=== PATIENT | female | born 1945 | race Caucasian/White ===

== ENCOUNTER 2018-04-13 13:30 | Outpatient (RCR) | payer MEDICARE, OTHER, SELFPAY ==
--- NOTE | 2018-03-06 12:05 | HP.PTEVAL_ITS ---
Patient's Visit Information ISELA CAMARENA is a 72 year old F referred to Physical Therapy by DEDRICK Connelly with a diagnosis of B shoulder pain. Date of Evaluation: 03/06/18 Physical Therapist: Esau Reed PT, - Visit Plan Frequency: 2-3x /Week Duration: 4-6 Weeks Plan: B shoulder strengthening, scap stab ex's, UBE, and HEP - Subjective Subjective: Pt reports she has had B shoulder pain for a long time. Pt reports her pain has progressively worsened. Pt also reports that her hands are really sore and she is limited with gripping stuff secondary to pain. Pt reports she had PT in the past for this same condition which really helped. Pt c/o a burning sensation in her hands which really hurts. No recent xrays or other dx tests. Pt reports occasional sleep diff at this time. Pt is ambidextrious. 6/10 pain at rest, 10/10 pain at worst - Pain B shoulder pain Pain Intensity (Out of 10): 6 Pain Intensity Range: 10 - Objective Neuro: B UE sensaation WNL to light touch. Palpation: Pt is very tender along the supraspinatus muscles. ROM: R shoulder flex= 50, abd= 55, ER= 45, IR severely limited. L shoulder flex= 80, abd= 75, ER= 40, IR severely limited. MMT: B shoulders 3-/5 throughout. Special tests: Pos empty can sign - Goals Goal 1:: Decrease B shoulder pain x 50% to aid with with sleep Goal Time Frame: 4-6 Weeks Goal 2:: Increase B shoulder strength x 1 grade to aid with IADL's Goal Time Frame: 4-6 Weeks Goal 3:: Increase B shoulder abd and flex ROM x 30 degrees to aid with overhead activity Goal Time Frame: 4-6 Weeks Goal 4:: I with HEP Goal Time Frame: 4-6 Weeks - Rehabilitation Potential Physical Therapy Diagnosis: B shoulder pain, weakness, and limited ROM secondary to deg changes in the shoulders Rehabilitation Potential: Good - Anticipated Interventions Patient/Client Instruction: Educate patient on: Condition, Plan of Care For the Purpose of:: To improve self management Therapeutic Exercise to Include: Strength training, Endurance training, Flexibilty training, Passive ROM, Active ROM, Scapular Strength/Stabilization For the Purpose of:: To decrease pain, To increase ROM, To improve muscle performance and motor function Cryotherapy (ice pack, ice massage): Yes For the Purpose of:: To decrease pain Thank you for the opportunity to evaluate your patient. For Medicare and Medicare HMO plans, please review the plan of care and approve it. It will need to be FAXED BACK to us at [phone] for Medicare purposes. Please let me know if there are questions or concerns regarding this plan of care. Physician Signature: Date:
--- NOTE | 2018-03-14 15:35 | HP.OTEVAL ---
Patient's Visit Information ISELA CAMARENA is a 72 year old F, referred to Occupational Therapy by DEDRICK Connelly, with a diagnosis of Hand weakness, pain, and stiffness. Date of Evaluation: 03/14/18 Occupational Therapist: Amarilys Costello - Subjective Subjective: Noted septic shock about 3 years ago. 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 She noted when out of come coma could strug shoulder and thats all she could do. She notes last mvmt to come back was R UE. 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 Notes never having nerve conduction, is not DMII but borderline, and is currently working with neurologist for neuropathy. Mostly concerned of pain and strength of hands. - Pain Right Wrist 8 Pain Intensity Range: 9 Left Wrist 2 Pain Intensity Range: 2, 3 - ROM Forearm: sup R 0-42, L 0-30 Wrist: flexion R 0-90, L 0-67; ext R 0-45, L 0-29 MP: WFL PIP: WFL DIP: WFL - Strength Multi Skilled Operator: R 34, L 42 Lateral Pinch: R 10, L 10 Tripod Pinch: R 10, L 8 Tip-to-Tip Pinch: R 8, L 9 - Sensation Thumb: R 4.17, L 3.22 Index: R 4.08, L 3.22 Middle: R 3.84, L 3.61 Ring: R 3.22, L 3.84 Little: R 4.56, L 3.84 - Special Tests Phalen's (Carpal Tunnel): negative Tinel's: negative WHAT Test: negative - Hand/Wrist Evaluation Total Score of Pain & Functional Sections: 82 - Goals Goal:: Pt. to increased B new accounts banking representative by 10 lbs to promote increased stability of wrist and hand to promote manipulation of self-care items by d/c. Goal:: Pat to increased supination of B wrists to promote ability to complete self-care tasks 4/5 trials 80% of the itme by d/c. Goal:: Pt. to be mod I to complete pain management techniques safely 4/5 trials 80% of the time to decreased pain and promote particpation of ADl/IADls by d/c. Goal:: Pat to be mod I to complete decreased sensory stratgeies at home to promote participation and safety while completing ADL/IADLs by d/c. Goal:: Pat to be mod I to complete proper body mechanics of hand and wrist to decreased painand promote jt integrity while complete selfcare 4/5 trials 80% of the time by d/c. - Rehabilitation General Assessment: Pat arrived for OT eval on this date. She exhibit increased pain in B hand with R wrist being more painful than left. Notes pain 8/10 without movement but no grimances noted with movement. ROM of shoulder and elbows appear limited. PT working on shoulders. ROM of wrist WFL with some decreased supination. She is able to make composite fists. Some strength discrepancies noted and OT to work on strengthening. Decreased touch sensation noted through monofilament test. Sensory compensations and strategies to be educated on and complete to promote safety when at home. Rehabilitation Potential: Good - Anticipated Interventions Anticipated Interventions: A/AAROM/PROM, Strengthening, Massage, Triggerpoint Release, Modalities, Joint Protection/Energy Conservation, Ergonomic Education, Fine Motor Coord/Mushtaq, ADL Training, Caregiver Training, Home Program - Visit Plan Frequency: 1-2x /Week Duration: 4 Weeks TEXT: Thank you for the opportunity to evaluate your patient. For Medicare and Medicare HMO plans, please review the plan of care and approve it. It will need to be FAXED BACK to us at [phone] for Medicare purposes. Please let me know if there are questions or concerns regarding this plan of care. Physician Signature: Date:
--- NOTE | 2018-04-11 13:58 | HP.PTDCSUM_ITS ---
HP - PT D/C Summary It has been my pleasure to treat ISELA CAMARENA under orders from Aura Torres , SHAWNAC, for the diagnosis of B shoulder pain for a total of 12 visit(s). Discharge Date: Please see the following information for a summary of their discharge status. - Subjective Subjective: Pt does not have pain in B shoulders this date. B shoulder pain has been 0-7/10 in the last week. - Pain B shoulder pain Pain Intensity (Out of 10): 0 - Overall Improvement % Improvement: 35 - Objective Objective/Function: AROM: L shoulder flex 72, abd 70, ER 45. R shoulder flex 64 , abd 70, ER 15. (compensations with all movements and movements are painful). MMT: B shoulder strength is 3-/5 throughout. - Goals Goal 1:: Decrease B shoulder pain x 50% to aid with with sleep Goal Progress: Goal Met Goal 2:: Increase B shoulder strength x 1 grade to aid with IADL's Goal Progress: Progressing Goal 3:: Increase B shoulder abd and flex ROM x 30 degrees to aid with overhead activity Goal Progress: Progressing Goal 4:: I with HEP Goal Progress: Goal Met - Plan Plan: D/C to HEP. - D/C Information If there are questions or concerns regarding this patient's physical therapy, please feel free to call me at [phone]. Thank you for the referral of this patient. Sincerely, Esau Reed, PT,
--- NOTE | 2018-04-13 14:23 | HP.OTDCSUM_ITS ---
HP - OT D/C Summary It has been my pleasure to treat ISELA CAMARENA under orders from SHAWNA ConnellyC, for the diagnosis of Hand weakness, pain, and stiffness for a total of 7 visit(s). Please see the following information for a summary of their discharge status. - Overall Improvement % Improvement: 20 - Objective Objective/Function: Completed reassessment on this date. Measurements are as follows: ROM wrist flexion R 0-31, L 0-90; ext. R 0-46, L 0-40, supination R 0- 55, L 0-60 degrees. Increased stiffness and appears to be weather related. Completed strength assessment: flexo folder gluer operator R 32, L 40 lbs, lateral pinch R 10, L 11; tripod R 10, L 8 lbs, tip pinch R 7, L 8 lbs. Completed sensation reassessment with monofilament test: R hand 2nd 3.84, 3rd 3.22, 4th 3.61, 5th 4.08, thumb 3.84; L hand 2nd 3.22, 3rd 3.22, 4th 3.84, 5th 4.08, thumb 3.84. R hand has progressed but sensory deficits remain and L hand exhibited some decreased sensation in pinky finger. - Goals Patient Goals: Regain Mobility, Regain Strength, Decrease Pain, Decrease Swelling/Stiffness, Use Hand/Wrist/Arm Normally Again, Decrease Tingling/ Numbness, Increase ROM, Be More Independent in ADLS, Resume Former Household Responsibilities (Cooking,Cleaning,Yard, etc.), Resume Hobbies Other: Zoey to be consulted if lyphadema becomes more prevalent but as of now she notes no issue of changes with B arms. Goal:: Pt. to increased B flexo folder gluer operator by 10 lbs to promote increased stability of wrist and hand to promote manipulation of self-care items by d/c. Goal:: Pat to increased supination of B wrists to promote ability to complete self-care tasks 4/5 trials 80% of the itme by d/c. Goal:: Pt. to be mod I to complete pain management techniques safely 4/5 trials 80% of the time to decreased pain and promote particpation of ADl/IADls by d/c. Goal:: Pat to be mod I to complete decreased sensory stratgeies at home to promote participation and safety while completing ADL/IADLs by d/c. Goal:: Pat to be mod I to complete proper body mechanics of hand and wrist to decreased painand promote jt integrity while complete selfcare 4/5 trials 80% of the time by d/c. - Plan Plan: Pat completed last scheduled appointment today. She will be d/c'd today. She is to follow up and PA-C to determine POC if numbness and tingling continues. She has progressed with R hand for touch sensation but strength and ROM measurements remain similar to evaluation. She is to get yellow putty today. Call with questions/concerns. - D/C Information If there are questions or concerns regarding this patient's occupational therapy , please fell free to call me at [phone]. Thank you for the referral of this patient. Sincerely, Amarilys Costello
== END 2018-04-13 15:13 | disposition home or self-care (01) ==
LOC: OT 13:30
PROVIDERS: Family Provider Internal Medicine; PCP Internal Medicine; Visit Provider Nurse Practitioner Acute Care
DX: M25.512 Pain in left shoulder (principal); M25.511 Pain in right shoulder; M79.601 Pain in right arm; M79.602 Pain in left arm
CPT/HCPCS: 97110; 97140; 97162; 97166; 97530

== ENCOUNTER → 2018-06-05 10:10 | Outpatient (CLI) | payer MEDICARE, OTHER, SELFPAY ==
[2018-06-05 11:11] LABS: ALB/GLOB Ratio 0.7 RATIO (0.9-2.4); AST(SGOT) 15 U/L (15-37); Alanine Aminotransfer ALT/SGPT 23 U/L (13-56); Albumin, Serum 3.4 g/dL (3.2-5.0); Alkaline Phosphatase 51 U/L (45-117); Anion Gap 7 (5-15); BUN 12 mg/dL (7-18); BUN/Creat Ratio 15.1 RATIO (10-20); Bilirubin, Direct 0.11 mg/dL (0.00-0.30); Calcium,Total 9.2 mg/dL (8.5-10.1); Chloride 95 mmol/L (98-107); EST Glomerular Filtration Rate 75 mL/min (>60); Est Glom Filt Rate - Afr Amer 91 mL/min (>60); Globulin 4.7 g/dL (2.2-4.2); Glucose 120 mg/dL (74-106); Magnesium 2.1 mg/dL (1.6-2.6); Phosphorus 3.3 mg/dL (2.5-4.9); Potassium 4.1 mmol/L (3.5-5.1); Protein, Total 8.1 g/dL (6.4-8.2); Sodium Level 135 mmol/L (136-145)
[2018-06-06 08:25] LABS: Vitamin B12 1485 pg/mL (211-911)
== END ==
PROVIDERS: Family Provider Internal Medicine; PCP Internal Medicine; Visit Provider Nurse Practitioner Acute Care
DX: M79.7 Fibromyalgia (principal); G62.9 Polyneuropathy, unspecified
CPT/HCPCS: 36415; 80053; 82248; 82607; 83735; 84100

== ENCOUNTER 2018-10-30 12:11 | Inpatient (IN) | payer MEDICARE, OTHER, SELFPAY ==
[2018-10-30] VITALS (30 sets, daily range): BP systolic 104–147; BP diastolic 50–107; PULSE 79–203; RESP 16–108; TEMP 36.6–39; O2SAT 93–925; BMI 59.7; BMI 55.4
--- NOTE | 2018-10-30 12:27 | EKG12_ITS ---
Test Reason : SVT Blood Pressure : / mmHG Vent. Rate : 093 BPM Atrial Rate : 093 BPM P-R Int : 168 ms QRS Dur : 080 ms QT Int : 360 ms P-R-T Axes : -24 024 038 degrees QTc Int : 447 ms Normal sinus rhythm Low voltage QRS Borderline ECG When compared with ECG of 30-OCT-2018 22:15, MANUAL COMPARISON REQUIRED, DATA IS UNCONFIRMED Confirmed by CACHORRO THOMPSON, JUAN ([id number]), editor news JAMI TOLENTINO ([id number]) on 11/02/2018 2:20:19 PM Referred By: Colby Roland Confirmed By:JUAN IVORY MD
--- NOTE | 2018-10-30 12:27 | RAD_ITS ---
STUDY: X-RAY CHEST REASON FOR EXAM: Female, 73 years old. Hypoxia. TECHNIQUE: Single AP portable view of the chest. COMPARISON: None. FINDINGS: EKG electrodes are seen. Vascular congestion and mild CHF. There is no demonstrated pleural abnormality. There is moderate cardiac enlargement. Normal mediastinum and peace. Normal visualized pulmonary arteries. There is atherosclerotic tortuosity of the aortic arch and descending thoracic aorta. Normal visualized thoracic spine. Normal visualized ribs, clavicles, and shoulders. There is no demonstrated abnormality of the visualized soft tissue structures of the upper abdomen. RAD/Chest 1 View (Portable) IMPRESSION: Cardiomegaly and CHF. Electronically Signed: Joaquin Douglass MD at 13:20 EST Tel [phone], Service support ,
[2018-10-30] MEDS: 0.9% Normal Saline 1,000 ML 250 ML IV (12:40)
[2018-10-30] MEDS: Ceftriaxone 1 GM/50 ML BAG IV (12:53)
[2018-10-30 12:56] LABS: Absolute Neutrophil Count 12.9 X10^3/uL (2.0-7.7); Basophil# 0.02 X10^3/uL; Basophil% 0.1 % (0-1); Hematocrit 36.2 % (37-47); Hemoglobin 11.7 g/dl (12.0-15.0); Lymphocyte % 4.2 % (19-41); Mean Corp Hgb Conc 32.3 g/gl (32-36); Mean Corpuscular Hgb 29.3 pg (27.0-32.0); Mean Corpuscular Volume 90.5 fL (81-99); Monocyte# 0.74 X10^3/uL; Monocyte% 5.2 % (0-10); Platelet Count 230 K/mm3 (150-450); RBC Distribution Width CV 16.8 % (11.6-14.6); RBC Distribution Width SD 55.5 fl (35.1-43.9); White Blood Count 14.3 K/mm3 (4.4-11.0)
[2018-10-30 12:58] LABS: Differential Indicated SCAN CRITERIA MET; POSITIVE COUNT NO; POSITIVE DIFFERENTIAL YES; POSITIVE MORPHOLOGY NO
--- NOTE | 2018-10-30 13:02 | ED.RN ---
NO CARE PROVIDER ARRIVED WITH PATIENT. MOON PALOMO CALLED AND INFORMATION OBTAINED THROUGH HER. WHILE ON PHONE CARE PROVIDER ARRIVED. MOON'S PHONE # IS [phone]. THEY ARE DRIVING BACK FROM [place] TODAY. EXPECTED TO BE BACK TOMORROW. Elvis LYNN, [id number]
[2018-10-30 13:03] LABS: Color, Urine Yellow (Yellow); Glucose, Dipstick Normal (Normal); Ketone-Dipstick 5 mg/dl (Negative); Leukocyte Esterase-Dipstick 500 /ul (Negative); Nitrite-Dipstick Positive (Negative); Occult Blood-Urine 250 /ul (Negative); Protein-Dipstick 100 mg/dl (Negative); Urine Bilirubin Dipstick Negative (Negative); Urine Clarity Cloudy (Clear); Urine Urobilinogen Normal (Normal); Urine pH 6.5 (5.0 - 8.0)
[2018-10-30 13:09] LABS: Bacteria 3+ /hpf (None Seen); Mucous, Urine RARE /hpf (<or=2+); Red Blood Cells-Urine 5-10 SEEN /hpf (0-5); Squamous Epithelial Cells - UA 0-5 SEEN /hpf (5-10); White Blood Cells 25-50 SEEN /hpf (0-5)
[2018-10-30 13:12] LABS: ALB/GLOB Ratio 0.5 RATIO (0.9-2.4); AST(SGOT) 26 U/L (15-37); Alanine Aminotransfer ALT/SGPT 14 U/L (13-56); Albumin, Serum 2.7 g/dL (3.2-5.0); Alkaline Phosphatase 73 U/L (45-117); Anion Gap 10 (5-15); BUN 37 mg/dL (7-18); BUN/Creat Ratio 19.1 RATIO (10-20); Calcium,Total 9.1 mg/dL (8.5-10.1); Chloride 100 mmol/L (98-107); Creatinine, Serum 1.94 mg/dL (0.55-1.02); EST Glomerular Filtration Rate 27 mL/min (>60); Est Glom Filt Rate - Afr Amer 33 mL/min (>60); Estimated Creatinine Clearance 24.54 ml/min; Glucose 161 mg/dL (74-106); Potassium 4.8 mmol/L (3.5-5.1); Protein, Total 7.7 g/dL (6.4-8.2); Sodium Level 135 mmol/L (136-145)
[2018-10-30 13:15] LABS: Lactic Acid 1.2 mmol/L (0.4-2.0)
[2018-10-30 13:17] LABS: Differential Comment SCANNED
--- NOTE | 2018-10-30 14:07 | ED.VISSUMM ---
- ER Visit Summary Date of Service: 10/30/18 Chief Complaint: Decreased level of consciousness History of Present Illness: The patient is a 73 F who requires significant stimulation to answer questions. Speech is garbled. She is tachycardic, tachypneic and hypoxic. She is unable to contribute to history and physical exam is limited. She opens her eyes to noxious stimuli. She withdraws to noxious stimuli. Per old records past medical history of bladder issues and reflux. Presented with an indwelling Henry. Physical Examination: Vital signs are remarkable for a heart rate of 106, respiratory 23 and pulse ox of 88%. Pupils are equal round reactive. Extra muscles intact. Sclerae anicteric. TMs normal. Nares patent. Mucosa is dry. Heart is rapid with distant heart tones. Lungs are without wheeze rales or rhonchi. Breath sounds are diminished. Abdomen is soft nontender with normal bowel sounds. There is edema of the lower extremities. She is occasionally arousable to noxious stimuli. Test Results: Chest x-ray reveals CHF. Study is limited secondary to rotation. EKG interpreted by me as sinus tachycardia with a rate of 102. IA interval normal. QRS duration normal. QT interval normal. There is decreased anterior force noted. White count is 14.3 thousand 96. Electronic panel is remarkable for BUN of 37 and creatinine 1.94. Baseline creatinine 0.8. Glucose 161. Urine is consistent with infection. Lactate is normal at 1.2. Emergency Department Course and Treatment: Sepsis workup was undertaken. Metabolic workup was undertaken as well. Patient with sepsis secondary to UTI. Hypoxia secondary to CHF. She received 1 g of Rocephin. She received 20 mg of Lasix and she is fluid overloaded. Treatment Plan: PCU for further testing and treatment Disposition: Full admission Impression: 1. Sepsis 2. UTI 3. Respiratory failure with hypoxia 4. CHF 5. Acute kidney injury 6. Hyperglycemia in a nondiabetic patient This note was generated with [employer] dictation software. It may contain incorrect words, spelling, and punctuation that were not noted in review of the chart prior to signing ED Disposition - Plan for ED Patient: Chief Complaint: Confusion Referrals: Noy Chakraborty MD [Primary Care Provider] -
--- NOTE | 2018-10-30 14:11 | ED.DCSUM_ITS ---
- ER Visit Summary Date of Service: 10/30/18 Chief Complaint: Decreased level of consciousness History of Present Illness: The patient is a 73 F who requires significant stimulation to answer questions. Speech is garbled. She is tachycardic, tachypneic and hypoxic. She is unable to contribute to history and physical exam is limited. She opens her eyes to noxious stimuli. She withdraws to noxious stimuli. Per old records past medical history of bladder issues and reflux. Presented with an indwelling Henry. Physical Examination: Vital signs are remarkable for a heart rate of 106, respiratory 23 and pulse ox of 88%. Pupils are equal round reactive. Extra muscles intact. Sclerae anicteric. TMs normal. Nares patent. Mucosa is dry. Heart is rapid with distant heart tones. Lungs are without wheeze rales or rhonchi. Breath sounds are diminished. Abdomen is soft nontender with normal bowel sounds. There is edema of the lower extremities. She is occasionally arousable to noxious stimuli. Test Results: Chest x-ray reveals CHF. Study is limited secondary to rotation. EKG interpreted by me as sinus tachycardia with a rate of 102. NC interval normal. QRS duration normal. QT interval normal. There is decreased anterior force noted. White count is 14.3 thousand 96. Electronic panel is remarkable for BUN of 37 and creatinine 1.94. Baseline creatinine 0.8. Glucose 161. Urine is consistent with infection. Lactate is normal at 1.2. Emergency Department Course and Treatment: Sepsis workup was undertaken. Metabolic workup was undertaken as well. Patient with sepsis secondary to UTI. Hypoxia secondary to CHF. She received 1 g of Rocephin. She received 20 mg of Lasix and she is fluid overloaded. Treatment Plan: PCU for further testing and treatment Disposition: Full admission Impression: 1. Sepsis 2. UTI 3. Respiratory failure with hypoxia 4. CHF 5. Acute kidney injury 6. Hyperglycemia in a nondiabetic patient This note was generated with [employer] dictation software. It may contain incorrect words, spelling, and punctuation that were not noted in review of the chart prior to signing ED Disposition - Plan for ED Patient: Chief Complaint: Confusion Referrals: Noy Chakraborty MD [Primary Care Provider] -
[2018-10-30 14:32] LABS: International Normalized Ratio 1.3; Prothrombin Time (Protime)PT. 16.6 SECONDS (11.7-14.9)
[2018-10-30 14:33] LABS: Partial Thromboplast Time 35.3 Seconds (24.1-36.2)
[2018-10-30] MEDS: Furosemide 20 MG/2 ML VIAL IV (14:37)
--- NOTE | 2018-10-30 15:29 | PCM.HP.STD ---
Problem List (1) Sepsis Status: Acute (2) Acute metabolic encephalopathy Status: Acute (3) MICHAELLE (acute kidney injury) Status: Acute (4) Depression Status: Acute (5) Suprapubic catheter dysfunction Status: Acute (6) UTI (urinary tract infection) Status: Acute (7) Debility Status: Chronic (8) VITA (obstructive sleep apnea) Status: Chronic History of Present Illness Date of Admission: 10/30/18 Chief Complaint: altered mental status The patient is a 73 year old F with pmhx of UTIs, suprapubic catheter, VITA, chronic hypoxic respiratory failure, morbid obesity, debility - wheelchair bound, who presents to the ER with altered mental status. She was sent to the ER by EMS, her caregiver noted that she was increasingly confused for the last 24 hours, last normal 2 days ago. She called the POA who advised to call EMS. She appears lethargic and is A/O x 0. She appears dehydrated. The caregiver cannot provide much information other than she has had the suprpubic cath for about 8 years at which point she had a severe infection, was in a coma, and has been wheelchair bound since. She states her baseline mental status is good. She is active at home, the aid helps her dress and get to bed. She does not use CPAP at night, just wears her O2. [] Past Medical History Past Medical History (Chronic Problems): Chronic Problems Debility (Chronic) VITA (obstructive sleep apnea) (Chronic) Allergies Sulfa (Sulfonamide Antibiotics) Allergy (Verified 09/30/13 13:27) Other Home Medications: Ambulatory Orders Medication Instructions Recorded Aspirin [Aspirin, Baby] 81 mg PO DAILY@0800 09/30/13 Baclofen [Lioresal] 10 mg PO 4X/DAY 09/30/13 DiphenhydrAMINE [Benadryl] 25 mg PO BID PRN PRN 09/30/13 Furosemide [Lasix] 20 mg PO DAILY 09/30/13 Gabapentin [Neurontin] 700 mg PO 4X/DAY 09/30/13 Hydrocodone/Acetaminophen [Vicodin 1 - 2 tablet PO Q6H PRN PRN #20 09/30/13 5/500] tablet Oxcarbazepine [Trileptal] 450 mg PO BID 09/30/13 Oxycodone CR [Oxycontin] 20 mg PO Q12H 09/30/13 Pantoprazole Sodium [Protonix] 40 mg PO DAILY 09/30/13 Pravastatin [Pravachol] 20 mg PO QHS 09/30/13 Venlafaxine HCl 75 mg PO DAILY 09/30/13 Ciprofloxacin [Cipro] 250 mg PO BID #14 tablet 10/16/13 Surgical History: noncontributory Psychiatric History: Anxiety, Depression INSPECTOR FLOOR History: No pertinent INSPECTOR FLOOR history Lives: Alone Smoking Status: Never smoker - *Family History Maternal History Items: Unknown Paternal History Items: No pertinent history VTE Information - Inpt Only VTE Present on Admission: No VTE Mechan Device Prophylaxis: None VTE Pharm Prophylaxis ordered?: Yes Patient Problems: Active and Suspected Problems Sepsis (Acute) Acute metabolic encephalopathy (Acute) MICHAELLE (acute kidney injury) (Acute) Depression (Acute) - Physical Exam General: Confused, Lethargic HEENT: Atraumatic, PERRLA, EOMI, Normocephalic Neck: Supple, No JVD, Negative Carotid Bruits Lungs: Clear to auscultation, Normal air movement Cardiovascular: Regular rate, No murmurs Abdomen: Bowel Sounds Present, Soft, Non Tender Extremities: No edema, Capillary Refill Less than 3 Seconds Skin: No rashes, No breakdown Musculoskeletal: No Tenderness to Palpation of Joints or Extremities Neurological: Cranial nerves II-XII grossly intact Psych/Mental Status: Normal Affect, Appropriate, - - oriented x 0 Vital Signs Temp Pulse Resp BP Pulse Ox 102.2 F H 101 H 101 H 130/94 H 98 10/30/18 15:03 10/30/18 15:00 10/30/18 15:03 10/30/18 15:03 10/30/18 15:03 Oxygen Flow Rate (L/min) 4 Oxygen Delivery Method Nasal Cannula Weight: 353 lb 13.471 oz Body Mass Index (BMI) 55.4 Laboratory Tests Past 24 Hrs 10/30/18 10/30/18 10/30/18 12:30 12:30 12:30 WBC 14.3 H RBC 4.00 L Hgb 11.7 L Hct 36.2 L MCV 90.5 MCH 29.3 MCHC 32.3 RDW 16.8 H RDW Differential 55.5 H Plt Count 230 MPV 10.0 Immature Gran % (Auto) 0.500 Neut % (Auto) 90.0 H Lymph % (Auto) 4.[address] [place] % (Auto) 5.2 Eos % (Auto) 0.0 Baso % (Auto) 0.1 Absolute Neuts (auto) 12.9 H Absolute Lymphs (auto) 0.60 L Total Counted Not Reportable Differential Comment SCANNED PT Cancelled INR Cancelled APTT Cancelled Sodium 135 L Potassium 4.8 Chloride 100 Carbon Dioxide 25.0 Anion Gap 10 BUN 37 H Creatinine 1.94 H Estim Creat Clear Calc 24.54 Est GFR (MDRD) Af Amer 33 L Est GFR (MDRD) Non-Af 27 L BUN/Creatinine Ratio 19.1 Glucose 161 H Lactic Acid Calcium 9.1 Total Bilirubin 0.80 AST 26 ALT 14 Alkaline Phosphatase 73 Total Protein 7.7 Albumin 2.7 L Globulin 5.0 H Albumin/Globulin Ratio 0.5 L Urine Color Urine Clarity Urine pH Ur Specific [place] Urine Protein Urine Glucose (UA) Urine Ketones Urine Occult Blood Urine Nitrite Urine Bilirubin Urine Urobilinogen Ur Leukocyte Esterase Urine RBC Urine WBC Ur Squamous Epith Cells Urine Bacteria Urine Mucus 10/30/18 10/30/18 10/30/18 12:30 12:52 14:21 WBC RBC Hgb Hct MCV MCH MCHC RDW RDW Differential Plt Count MPV Immature Gran % (Auto) Neut % (Auto) Lymph % (Auto) [place] % (Auto) Eos % (Auto) Baso % (Auto) Absolute Neuts (auto) Absolute Lymphs (auto) Total Counted Differential Comment PT 16.6 H INR 1.3 APTT 35.3 Sodium Potassium Chloride Carbon Dioxide Anion Gap BUN Creatinine Estim Creat Clear Calc Est GFR (MDRD) Af Amer Est GFR (MDRD) Non-Af BUN/Creatinine Ratio Glucose Lactic Acid 1.2 Calcium Total Bilirubin AST ALT Alkaline Phosphatase Total Protein Albumin Globulin Albumin/Globulin Ratio Urine Color Yellow Urine Clarity Cloudy Urine pH 6.5 Ur Specific [place] 1.010 Urine Protein 100 H Urine Glucose (UA) Normal Urine Ketones 5 H Urine Occult Blood 250 H Urine Nitrite Positive H Urine Bilirubin Negative Urine Urobilinogen Normal Ur Leukocyte Esterase 500 H Urine RBC 5-10 SEEN Urine WBC 25-50 SEEN Ur Squamous Epith Cells 0-5 SEEN Urine Bacteria 3+ Urine Mucus RARE Assessment/Plan All Active Problems Sepsis (Acute) Acute metabolic encephalopathy (Acute) MICHAELLE (acute kidney injury) (Acute) Depression (Acute) Suprapubic catheter dysfunction (Acute) UTI (urinary tract infection) (Acute) 1. Acute sepsis 2/2 UTI likely due to suprapubic cath - zosyn. received rocephin in ER. + UA. Urine culture pending. Nursing to change suprapubic cath. + fever, leukocytosis, tachycardia, tachypnea. Follow blood and urine cx -We placed an ordered to obtain records from his PCP office as we do not know the full hx. Pt appears dry - will give IV fluids. 2. Acute metabolic encephalopathy - currently lethargic, A/O x 0. started becoming more confused yesterday morning. 3. MICHAELLE 2/2 sepsis - IV fluids. May creatinine was normal. 4. Chronic hypoxic respiratory failure - CXR shows CHF, however it is not clear if there is acute resp failure. Will check BNP. She does wear O2 at night instead of using CPAP. Repeat CXR in AM. 5. VITA - noncompliant with CPAP 6. Morbid obesity - npo for now. dietary eval when appropriate. 7. Suprapubic cath - leaking. Change. It is unclear why she has this at this time. waiting for records. 8. HLD - on statin 9. Debility - wheelchair bound. DVT ppx: heparin DC planning: likely needs placed, PTOT evals when alert This patient was seen by Nestor Wiley PA-C under the supervision of Doctor Roland.
[2018-10-30] MEDS: 0.9% Normal Saline 1,000 ML 100 ML IV (16:09)
[2018-10-30 16:32] LABS: BNP,B-Type NATRIURETIC PEPTIDE 169.2 pg/mL (0-100)
--- NOTE | 2018-10-30 16:37 | EKG12_ITS ---
Test Reason : CONFUSION Blood Pressure : / mmHG Vent. Rate : 102 BPM Atrial Rate : 102 BPM P-R Int : 168 ms QRS Dur : 078 ms QT Int : 358 ms P-R-T Axes : 000 052 051 degrees QTc Int : 466 ms Sinus tachycardia with Premature atrial complexes Low voltage QRS Possible Inferior infarct , age undetermined Cannot rule out Anterior infarct , age undetermined Abnormal ECG Confirmed by CACHORRO THOMPSON, JUAN ([id number]), visual effects editor JAMI TOLENTINO ([id number]) on 11/02/2018 1:32:32 PM Referred By: Colby Roland Confirmed By:JUAN IVORY MD
[2018-10-30] MEDS: Adenosine 6 MG/2 ML Syringe IV (16:42)
--- NOTE | 2018-10-30 16:44 | NURSING ---
MY SMITH RN ADMINISTERED ADENOSINE 6MG IV NOW PER DR. RO.
[2018-10-30 16:55] LABS: Base Excess -2 mmol/L (-2 to +2); Bicarbonate 23.4 mmol/L (22-26); Blood Gas Specimen Type ART; O2 Delivery Device Nasal Can; PO2 74 mmHG (75-100); SITE L Radial; SO2 95 % (95-99); Time Given 1647; Total Carbon Dioxide 25 mmol/L; pCO2 38.7 mmHg (35-45); pH 7.39 (7.35-7.45)
--- NOTE | 2018-10-30 17:15 | NURSING ---
in ICU2 from PCU, PCU RNs in attendance
--- NOTE | 2018-10-30 17:16 | CT_ITS ---
STUDY: CTA CHEST REASON FOR EXAM: Female, 73 years old. Hypoxia. RADIATION DOSAGE (If Supplied By Facility): CTDIvol = ( 26.20 ) mGy, DLP = ( 1098.29 ) mGycm TECHNIQUE: The examination was performed with the intravenous administration of 100 ml of Isovue 370 contrast material. Post-processing of the angiographic images was performed, with multiplanar reformation and 3D reconstruction. Individualized dose optimization techniques were used for this CT. COMPARISON: None. FINDINGS: This study is limited due to patient respiratory motion. The heart and pericardium are normal. The aorta is normal in caliber, with no aneurysm or dissection. There is suboptimal opacification of the pulmonary arteries. No obvious embolus is identified. Small or peripheral emboli could be missed. Calcified subcarinal and right hilar adenopathy is consistent with old granulomatous disease. There is no pleural effusion. There is no pulmonary consolidation. Multiple granulomatous calcifications are noted in the liver and spleen. Demonstrated abdomen is otherwise unremarkable. There is no osseous abnormality. CT/CTA Chest W/WO Contrast IMPRESSION: 1. Study is limited for evaluation of pulmonary embolus. No obvious central emboli. Small, peripheral emboli could be missed. 2. No acute process demonstrated. 3. Old granulomatous disease. Electronically Signed: Cecy Hodge MD at 21:28 EST Tel , Service support ,
[2018-10-30] MEDS: Insulin Lispro 100 UNIT/ML INSULN.PEN SC ×2 (17:52→23:56)
[2018-10-30 17:55] LABS: Bedside Glucose 152 mg/dL (70-110)
[2018-10-30] MEDS: Piperacil/Tazobactam 3.375 GM/50 ML ML IV ×2 (18:07→23:23)
[2018-10-30] MEDS: Metoprolol Tartrate 5 MG/5 ML Vial IV ×2 (18:08→22:14)
[2018-10-30 19:34] LABS: Magnesium 1.9 mg/dL (1.6-2.6)
[2018-10-30] MEDS: fentaNYL 25 MCG Patch TRANSDERM. (21:06)
[2018-10-30] MEDS: Heparin Injection (Vial) 5,000 UNIT/ML VIAL 5000 UNIT SC (21:06)
--- NOTE | 2018-10-30 22:13 | EKG12_ITS ---
Test Reason : SVT Blood Pressure : / mmHG Vent. Rate : 176 BPM Atrial Rate : 174 BPM P-R Int : 000 ms QRS Dur : 094 ms QT Int : 270 ms P-R-T Axes : 000 127 193 degrees QTc Int : 462 ms Supraventricular tachycardia Left posterior fascicular block Anterior infarct , age undetermined Abnormal ECG When compared with ECG of 30-OCT-2018 16:45, MANUAL COMPARISON REQUIRED, DATA IS UNCONFIRMED Confirmed by CACHORRO THOMPSON, JUAN ([id number]), legal editor JAMI TOLENTINO ([id number]) on 11/02/2018 2:20:34 PM Referred By: Colby Roland Confirmed By:JUAN IVORY MD
[2018-10-30] MEDS: 0.9% NaCl Peripheral Flush Adult/Peds IV (22:17)
[2018-10-31] VITALS (23 sets, daily range): BP systolic 92–154; BP diastolic 36–79; PULSE 90–105; RESP 18–23; TEMP 36.7–37.7; O2SAT 92–98
[2018-10-31 00:06] LABS: Bedside Glucose 151 mg/dL (70-110)
[2018-10-31] MEDS: 0.9% Normal Saline 1,000 ML 100 ML IV ×3 (01:39→23:05)
[2018-10-31 04:16] LABS: Absolute Lymphocyte Count 0.66 X10^3/ul (0.83-4.51); Absolute Neutrophil Count 7.7 X10^3/uL (2.0-7.7); Basophil# 0.01 X10^3/uL; Basophil% 0.1 % (0-1); Eosinophil# 0.03 X10^3/uL; Eosinophils% 0.3 % (0-5); Hematocrit 32.6 % (37-47); Hemoglobin 10.4 g/dl (12.0-15.0); Lymphocyte # 0.66 X10^3/ul (4.0); Lymphocyte % 7.3 % (19-41); Mean Corp Hgb Conc 31.9 g/gl (32-36); Mean Corpuscular Hgb 29.1 pg (27.0-32.0); Mean Corpuscular Volume 91.3 fL (81-99); Mean Platelet Vol. 10.1 fl (6.2-12.0); Monocyte# 0.57 X10^3/uL; Monocyte% 6.3 % (0-10); Neutrophil # 7.67 X10^3/uL (2.7-7.7); Neutrophil % 85.6 % (47-70); Platelet Count 213 K/mm3 (150-450); RBC Distribution Width SD 55.3 fl (35.1-43.9); Red Blood Count 3.57 M/mm3 (4.2-5.4)
[2018-10-31 04:18] LABS: POSITIVE COUNT NO; POSITIVE DIFFERENTIAL NO; POSITIVE MORPHOLOGY NO
[2018-10-31 04:25] LABS: Anion Gap 9 (5-15); BUN 38 mg/dL (7-18); BUN/Creat Ratio 18.5 RATIO (10-20); Calcium,Total 8.4 mg/dL (8.5-10.1); Chloride 105 mmol/L (98-107); Creatinine, Serum 2.05 mg/dL (0.55-1.02); EST Glomerular Filtration Rate 25 mL/min (>60); Est Glom Filt Rate - Afr Amer 31 mL/min (>60); Estimated Creatinine Clearance 24.12 ml/min; Glucose 159 mg/dL (74-106); Potassium 4.1 mmol/L (3.5-5.1); Sodium Level 140 mmol/L (136-145)
[2018-10-31] MEDS: Metoprolol Tartrate 5 MG/5 ML Vial IV ×4 (05:13→23:18)
[2018-10-31] MEDS: Piperacil/Tazobactam 3.375 GM/50 ML ML IV ×3 (05:14→23:06)
[2018-10-31] MEDS: Heparin Injection (Vial) 5,000 UNIT/ML VIAL 5000 UNIT SC ×3 (05:17→23:06)
[2018-10-31] MEDS: 0.9% NaCl Peripheral Flush Adult/Peds IV ×2 (05:18→23:18)
[2018-10-31] MEDS: Insulin Lispro 100 UNIT/ML INSULN.PEN SC (05:24)
[2018-10-31] MEDS: CHLORHEXIDINE GLUC 2% CLOTH 1 EACH TOWELETTE TOPICAL (05:28)
[2018-10-31 05:36] LABS: Bedside Glucose 173 mg/dL (70-110)
--- NOTE | 2018-10-31 05:55 | RAD_ITS ---
STUDY: X-RAY CHEST REASON FOR EXAM: Female, 73 years old. Shortness of breath and dyspnea TECHNIQUE: Single AP portable view of the chest. COMPARISON: 10/30/2018 FINDINGS: Lungs are adequately inflated. Mild interstitial edema is noted. No focal consolidation or infiltrates. There is no demonstrated pleural abnormality. There is borderline cardiomegaly. Normal mediastinum and peace. Normal visualized pulmonary arteries. Normal visualized aortic arch and descending thoracic aorta. There are diffuse degenerative changes of the visualized thoracic spine. Normal visualized ribs, clavicles, and shoulders. There is no demonstrated abnormality of the visualized soft tissue structures of the upper abdomen. RAD/Chest 1 View (Portable) IMPRESSION: Mild interstitial edema. Electronically Signed: Cm Feliciano DO at 8:50 EST Tel , Service support ,
--- NOTE | 2018-10-31 05:55 | ECHOCS_ITS ---
Reason For Study: Dyspnea/SOB Procedure This was a 2D Doppler, Color Flow transthoracic echocardiogram. Contrast injection was performed. Exam performed portable in ICU/CCU. Left Ventricle Normal size and thickness. The estimated ejection fraction is 75 %. Stage 1 diastolic dysfunction. No regional wall motion abnormalities noted. Right Ventricle Normal size and thickness. Normal systolic function. Atria The left atrium is moderately enlarged. Normal right atrium. Normal atrial septum. Mitral Valve The mitral valve is structurally normal. No prolapse or stenosis seen. Tricuspid Valve Normal tricuspid valve. Unable to estimate RV systolic pressure due to inadequate jet, pulmonary artery pressure probably normal. Aortic Valve Normal aortic valve. Trisinus/trileaflet aortic valve. Pulmonic Valve The pulmonic valve is not well visualized. Great Vessels Normal aortic root. Mild atherosclerosis of the aortic arch. Normal inferior vena cava. Inferior vena cava collapse with sniff. Pericardium/Pleural No pericardial effusion. Medication Diluted definity 2ml given slow IV push to enhance endocardial definition. MMode/2D Measurements & Calculations LVIDd: 4.6 cm IVSd: 1.1 cm Ao root diam: 3.7 cm LVIDs: 3.1 cm LVPWd: 1.0 cm LA dimension: 3.6 cm RVDd: 3.2 cm FS: 32.5 % LAV(MOD-sp4): 72.0 ml LVAd ap4: 32.6 cm2 SV(MOD-sp4): 72.7 ml EDV(MOD-sp4): 113.6 ml EDV(sp4-el): 114.8 ml LVAs ap4: 17.5 cm2 ESV(MOD-sp4): 40.9 ml ESV(sp4-el): 42.9 ml EF(MOD-sp4): 64.0 % EF(sp4-el): 62.6 % SV(sp4-el): 71.9 ml LA A4 area: 23.6 cm2 RA A4 area: 17.9 cm2 Time Measurements MV dec time: 0.19 sec Doppler Measurements & Calculations MV E max hermelindo: 130.9 cm/sec Lat Peak E' Hermelindo: 9.4 cm/sec Med Peak E' Hermelindo: 9.3 cm/sec MV A max hermelindo: 145.4 cm/sec E/E' lat: 13.9 E/E' med: 14.1 MV E/A: 0.90 MV V2 max: 169.5 cm/sec MV P1/2t max hermelindo: 160.8 cm/sec Ao V2 max: 186.8 cm/sec MV max P.5 mmHg MV P1/2t: 55.9 msec Ao max P.0 mmHg MV V2 mean: 113.1 cm/sec Ao V2 mean: 119.4 cm/sec MV mean P.9 mmHg MV dec slope: 842.1 cm/sec2 Ao mean P.6 mmHg MV V2 VTI: 35.7 cm MVA(P1/2t): 3.9 cm2 Ao V2 VTI: 31.5 cm LV V1 max: 134.9 cm/sec PA V2 max: 101.1 cm/sec LV V1 max P.3 mmHg LV V1 mean P.5 mmHg LV V1 mean: 84.7 cm/sec LV V1 VTI: 23.5 cm Interpretation Summary The estimated ejection fraction is 75 %. Stage 1 diastolic dysfunction. The left atrium is moderately enlarged. Unable to estimate RV systolic pressure due to inadequate jet, pulmonary artery pressure probably normal. The study was technically difficult. There is no comparison study available. Contrast injection was performed. Ordering Physician: Colby Roland Referring Physician: Colby Roland Performed By: Cayden Snowden RCS
--- NOTE | 2018-10-31 07:47 | PN_ITS ---
Patient Problems: Active and Suspected Problems Sepsis (Acute) Acute metabolic encephalopathy (Acute) MICHAELLE (acute kidney injury) (Acute) Depression (Acute) Subjective: Patient is a 73-year-old lady brought to the emergency department as a result of altered mental status. An assessment of acute cystitis was made. Antibiotics initiated per protocol patient admitted for further management. Patient was transferred to the intensive care unit after she developed SVT Objective: GENERAL: Appears ill looking, lethargic but easily arousable HEENT: Atraumatic; moist oral mucosa EYES; Anicteric, Normal Conjunctiva NECK; supple, normal thyroid, RESPIRATORY: Diminished to auscultation bilaterally, CARDIOVASCULAR: Regular S1 S2, no audible murmurs GI: soft, non-tender, normoactive bowel sounds, : No Renal angle tenderness; EXTREMITIES: , no clubbing, no cyanosis. MUSCULOSKELETAL: Contractures involving lower extremities NEURO: Allergic but arousable SKIN: Excoriations skin folds abdomen PSYCH; flat affect Vitals/I&O's: Vital Signs Temp Pulse Resp BP Pulse Ox 98.0 F 94 19 H 100/46 L 96 10/31/18 04:00 10/31/18 07:00 10/31/18 07:00 10/31/18 07:00 10/31/18 07:00 Oxygen Flow Rate (L/min) 3 Oxygen Delivery Method Nasal Cannula Weight: 161.9 kg Body Mass Index (BMI) 55.4 Intake and Output for Last 24 Hours 10/29/18 10/30/18 10/31/18 23:59 23:59 23:59 Intake Total 609 / 609 606 / 606 Output Total 1200 / 1200 400 / 400 Balance -591 / -591 206 / 206 Laboratory Results 10/30/18 12:30: WBC 14.3 H, RBC 4.00 L, Hgb 11.7 L, Hct 36.2 L, MCV 90.5, MCH 29.3, MCHC 32.3, RDW 16.8 H, RDW Differential 55.5 H, Plt Count 230, MPV 10.0, Immature Gran % (Auto) 0.500, Neut % (Auto) 90.0 H, Lymph % (Auto) 4.2 L, [place] % (Auto) 5.2, Eos % (Auto) 0.0, Baso % (Auto) 0.1, Absolute Neuts (auto) 12.9 H, Absolute Lymphs (auto) 0.60 L, Total Counted Not Reportable, Differential Comment SCANNED 10/30/18 12:30: PT Cancelled, INR Cancelled, APTT Cancelled 10/30/18 12:30: Sodium 135 L, Potassium 4.8, Chloride 100, Carbon Dioxide 25.0, Anion Gap 10, BUN 37 H, Creatinine 1.94 H, Estim Creat Clear Calc 24.54, Est GFR (MDRD) Af Amer 33 L, Est GFR (MDRD) Non-Af 27 L, BUN/Creatinine Ratio 19.1, Glucose 161 H, Calcium 9.1, Total Bilirubin 0.80, AST 26, ALT 14, Alkaline Phosphatase 73, Total Protein 7.7, Albumin 2.7 L, Globulin 5.0 H, Album in/Globulin Ratio 0.5 L 10/30/18 12:30: Lactic Acid 1.2 10/30/18 12:35: B-Natriuretic Peptide 169.2 H 10/30/18 12:52: Urine Color Yellow, Urine Clarity Cloudy, Urine pH 6.5, Ur Specific [place] 1.010, Urine Protein 100 H, Urine Glucose (UA) Normal, Urine Ketones 5 H, Urine Occult Blood 250 H, Urine Nitrite Positive H, Urine Bilirubin Negative, Urine Urobilinogen Normal, Ur Leukocyte Esterase 500 H, Urine RBC 5-10 SEEN, Urine WBC 25-50 SEEN, Ur Squamous Epith Cells 0-5 SEEN, Urine Bacteria 3+, Urine Mucus RARE 10/30/18 14:21: PT 16.6 H, INR 1.3, APTT 35.3 10/30/18 16:48: Specimen Type ART, Sample Site L Radial, pH 7.39, Bicarbonate Actual 23.4, POC Total CO2 25, Base Excess -2, O2 Saturation 95, ABG pCO2 38.7, ABG pO2 74 L, O2 Delivery Device Nasal Can, Liter Flow 6.0, Blood Gas Notified Whom RAJANI THOMPSON, Blood Gas Notified Time 1261 10/30/18 17:00: Magnesium 1.9, Troponin I < 0.015 10/30/18 17:50: POC Glucose 152 H 10/30/18 23:55: POC Glucose 151 H 10/31/18 03:55: Sodium 140, Potassium 4.1, Chloride 105, Carbon Dioxide 26.0, Anion Gap 9, BUN 38 H, Creatinine 2.05 H, Estim Creat Clear Calc 24.12, Est GFR (MDRD) Af Amer 31 L, Est GFR (MDRD) Non-Af 25 L, BUN/Creatinine Ratio 18.5, Glucose 159 H, Calcium 8.4 L, Troponin I < 0.015 10/31/18 03:55: WBC 9.0, RBC 3.57 L, Hgb 10.4 L, Hct 32.6 L, MCV 91.3, MCH 29.1, MCHC 31.9 L, RDW 17.0 H, RDW Differential 55.3 H, Plt Count 213, MPV 10.1, Immature Gran % (Auto) 0.400, Neut % (Auto) 85.6 H, Lymph % (Auto) 7.3 L, [place] % (Auto) 6.3, Eos % (Auto) 0.3, Baso % (Auto) 0.1, Absolute Neuts (auto) 7.7, Absolute Lymphs (auto) 0.66 L, Total Counted Not Reportable 10/31/18 05:23: POC Glucose 173 H Current Medications Chlorhexidine Gluconate () 1 each TOPICAL DAILY [facility] Last Admin: 10/31/18 05:28 Dose: 1 each Fentanyl (Duragesic Patch) 25 mcg TRANSDERM. Q3D [facility] Last Admin: 10/30/18 21:06 Dose: 25 mcg Heparin Sodium (Porcine) (Heparin Na) 5,000 unit SC Q8 [facility] Last Admin: 10/31/18 05:17 Dose: 5,000 unit Sodium Chloride () 1,000 mls @ 100 mls/hr IV .Q10H [facility] Last Admin: 10/31/18 01:39 Dose: 100 mls/hr Piperacillin Sod/Tazobactam Sod (Zosyn) 3.375 gm in 50 mls @ 12.5 mls/hr IV Q8 [facility] Last Admin: 10/31/18 05:14 Dose: 12.5 mls/hr Fluconazole (Diflucan) 200 mg in 100 mls @ 100 mls/hr IV Q24 [facility] Last Admin: 10/30/18 21:14 Dose: 100 mls/hr Sodium Chloride () 250 mls @ 15 mls/hr IV .[id number] PRN PRN Reason: SALINE FLUSH Insulin Human Lispro (Humalog Kwikpen (Bkc)) 0 unit SC Q6 [facility]; Protocol Last Admin: 10/31/18 05:24 Dose: 2 units Metoprolol Tartrate (Lopressor (Beta Genaro)) 5 mg IV Q6 [facility] Last Admin: 10/31/18 05:13 Dose: 5 mg Sodium Chloride () 5 - 15 ml IV UD PRN PRN Reason: SALINE FLUSH Last Admin: 10/31/18 05:18 Dose: 10 ml Medical Necessity - Tobacco Use Smoking Status: Never smoker Assessment/Plan All Active Problems Sepsis (Acute) Acute metabolic encephalopathy (Acute) MICHAELLE (acute kidney injury) (Acute) Depression (Acute) Suprapubic catheter dysfunction (Acute) UTI (urinary tract infection) (Acute) Patient is a 73-year-old lady brought to the emergency department as a result of altered mental status. An assessment of acute cystitis was made. Antibiotics initiated per protocol patient admitted for further management. Patient was transferred to the intensive care unit after she developed SVT 1. Sepsis secondary to acute cystitis secondary to presence of a suprapubic catheter. Patient started on 7 after cultures have been obtained 2. Acute metabolic encephalopathy secondary to acute kidney injury as well as sepsis 3. Acute kidney injury suspected to be secondary to ATN from patient underlying infection baseline creatinine of 0.8 patient creatinine on admission was 1.94 which went up to 2.05 as of 10/31/2018 4. SVT probably prepped stated by patient underlying infection patient converted back to sinus rhythm with adenosine 5. Chronic hypoxic respiratory failure 6. Obstructive sleep apnea apparently noncompliant with CPAP 7. Morbid obesity with BMI of 55.9 8. Physical debility patient is wheelchair-bound 9. Presence of suprapubic catheter 10. Diabetes mellitus type II: Controlled; patient's oral hypoglycemics held. Placed on long acting insulin, Accu-Cheks a.c. and at bedtime and covered with sliding scale insulin 11. Hypertension-blood pressure controlled, home medications continued with dose adjustment as needed 12. Dyslipidemia-patient is on statin therapy, continued at home dose 13. Diabetic polyneuropathy 14.?? Seizure disorder patient is on Keppra indication not clear 15. DVT prophylaxis; SC heparin Active Medications Chlorhexidine Gluconate () 1 each TOPICAL DAILY [facility] Last Admin: 10/31/18 05:28 Dose: 1 each Fentanyl (Duragesic Patch) 25 mcg TRANSDERM. Q3D [facility] Last Admin: 10/30/18 21:06 Dose: 25 mcg Heparin Sodium (Porcine) (Heparin Na) 5,000 unit SC Q8 [facility] Last Admin: 10/31/18 05:17 Dose: 5,000 unit Sodium Chloride () 1,000 mls @ 100 mls/hr IV .Q10H [facility] Last Admin: 10/31/18 01:39 Dose: 100 mls/hr Piperacillin Sod/Tazobactam Sod (Zosyn) 3.375 gm in 50 mls @ 12.5 mls/hr IV Q8 [facility] Last Admin: 10/31/18 05:14 Dose: 12.5 mls/hr Fluconazole (Diflucan) 200 mg in 100 mls @ 100 mls/hr IV Q24 [facility] Last Admin: 10/30/18 21:14 Dose: 100 mls/hr Sodium Chloride () 250 mls @ 15 mls/hr IV .[id number] PRN PRN Reason: SALINE FLUSH Insulin Human Lispro (Humalog Kwikpen (Bkc)) 0 unit SC Q6 [facility]; Protocol Last Admin: 10/31/18 05:24 Dose: 2 units Metoprolol Tartrate (Lopressor (Beta Genaro)) 5 mg IV Q6 [facility] Last Admin: 10/31/18 05:13 Dose: 5 mg Sodium Chloride () 5 - 15 ml IV UD PRN PRN Reason: SALINE FLUSH Last Admin: 10/31/18 05:18 Dose: 10 ml Clinical Impression(s) from Imaging Studies Chest X-Ray 10/30/18 12:27 IMPRESSION: Cardiomegaly and CHF. Electronically Signed: Joaquin Douglass MD at 13:20 EST Tel [phone], Service support , Chest CTA 10/30/18 17:16 IMPRESSION: 1. Study is limited for evaluation of pulmonary embolus. No obvious central emboli. Small, peripheral emboli could be missed. 2. No acute process demonstrated. 3. Old granulomatous disease. Electronically Signed: Cecy Hodge MD at 21:28 EST Tel , Service support , Code Visit Inpatient E&M: 37469 Subs Hosp L3
--- NOTE | 2018-10-31 08:45 | NURSING ---
Echo in progress
--- NOTE | 2018-10-31 09:03 | NURSING ---
Attempted to call report to PCU, will call back
[2018-10-31] MEDS: Nystatin Powder 15gm Bottle 1 APPLIC TOPICAL ×2 (09:20→23:07)
--- NOTE | 2018-10-31 11:29 | CON.PCM_ITS ---
Problem List (1) Shortness of breath Status: Acute (2) Tachycardia Status: Acute Reason for Consult Date of Consultation: 10/31/18 Reason for Consultation: Tachycardia, shortness of breath History of Present Illness: The patient is a 73 year old F severely obese female, with obstructive sleep apnea, who is unable to walk, essentially bedbound, who was found to be unresponsive yesterday, and brought emergently to the emergency room of [facility] by melisaad. According to the admitting hospitalist she had a narrow complex tachycardia and was short of breath and obtunded. Patient underwent a CTA of her chest which demonstrated no significant proximal pulmonary emboli although distal emboli cannot be excluded. Patient was given fluid resuscitation, supplemental O2, and admitted to the ICU. Patient has a chronic suprapubic catheter, was found to have UTI/sepsis, and has been treated with IV antibiotics ever since admission. Patient was ruled out for myocardial infarction, and a 2D echo with Doppler was performed this morning which showed hyperdynamic LV function with an EF of 75%, unable to quantitate RVSP, and stage I diastolic dysfunction. Patient is able to communicate, but has difficulty getting her words out. Patient is on a significant amount of Neurontin, but denied any chest pain, angina, shortness of breath at her place of residence. Patient is essentially nonambulatory. [] Past Medical History Allergies/Adverse Reactions: Allergies adhesive tape Allergy (Verified 10/30/18 17:29) blisters Influenza Virus Vaccines Allergy (Verified 10/30/18 17:29) shortness of breath/severe wheezing iron Allergy (Verified 10/30/18 17:29) from IV form chest pressure and heart palpitations Sulfa (Sulfonamide Antibiotics) Allergy (Verified 10/30/18 17:29) Shortness of breath bactrim does not work for her-per pcp paperwork meloxicam [From Mobic] Adverse Reaction (Verified 10/30/18 17:29) gi upset seasonal allergies Allergy (Uncoded 10/30/18 17:29) Other Home Medications: Ambulatory Orders Medication Instructions Recorded DiphenhydrAMINE [Benadryl] 25 mg PO BID PRN PRN 09/30/13 Furosemide [Lasix] 20 mg PO TID 09/30/13 Pantoprazole Sodium [Protonix] 40 mg PO DAILY 09/30/13 Pravastatin [Pravachol] 20 mg PO QHS 09/30/13 Albuterol Inhaler [Ventolin Hfa] 2 puff INHALATION Q4H PRN PRN 10/30/18 Baclofen 10 mg PO TID PRN PRN 10/30/18 Cholecalciferol (VIT D3) [Vitamin 1,000 unit PO DAILY 10/30/18 D] Ciprofloxacin [Cipro] 500 mg PO BID PRN 10/30/18 Cranberry Conc/Ascorbic Acid 1 each PO BID 10/30/18 [Cranberry Concentrate Softgel] Cyanocobalamin [Vitamin B12] 1,000 mcg PO DAILY@0800 10/30/18 Diphenoxylate/Atrop [Lomotil] 1 tablet PO 4X/DAY PRN PRN 10/30/18 Duloxetine Hcl [Cymbalta] 30 mg PO DAILY 10/30/18 Fluticasone 0.05% [Flonase Nasal 2 spray NASAL DAILY 10/30/18 [place]] Gabapentin [Neurontin] 1,200 mg PO 4X/DAY 10/30/18 Guaifenesin [Mucinex] 1,200 mg PO BID PRN 10/30/18 Hydrocodone Bitart/Apap 5-325 1 tablet PO Q6H PRN PRN 10/30/18 [[place] 5MG-325MG] Lisinopril [Zestril] 10 mg PO DAILY 10/30/18 Metformin HCl [Glucophage] 500 mg PO BID 10/30/18 Metoprolol(XL)Succ [Toprol Xl 25 mg PO DAILY 10/30/18 (Beta Genaro)] Multivitamins,Ther W-Minerals 1 tablet PO 4X/DAY 10/30/18 [Multivitamin With Minerals] Mupirocin [Bactroban] 1 applicatio TOPICAL BID 10/30/18 Nitrofurantoin Macrocrystals 100 mg PO DAILY 10/30/18 [Macrobid] Nystatin Powder [Mycostatin Powder] 1 applicatio TOPICAL BID PRN PRN 10/30/18 Oxybutynin Chloride [Ditropan Xl] 15 mg PO DAILY 10/30/18 Potassium (Otc) [Potassium Otc] 99 mg PO DAILY 10/30/18 Ranitidine [Zantac] 150 mg PO BID 10/30/18 Triamcinolone 0.1% Dental Pst 1 applicatio TOPICAL 4X/DAY 10/30/18 [Kenalog] Venlafaxine XR [Effexor Xr] 150 mg PO BID 10/30/18 Vitamin E 400 units PO BID 10/30/18 levETIRAcetam tablet [Keppra 500 mg PO QHS 10/30/18 tablet] Past Medical History (Chronic Problems): Chronic Problems Debility (Chronic) VITA (obstructive sleep apnea) (Chronic) Surgical History: noncontributory Psychiatric History: Anxiety, Depression 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 Objective: Vital Signs Temp Pulse Resp BP Pulse Ox 99.2 F H 96 18 131/54 H 95 10/31/18 10:04 10/31/18 10:04 10/31/18 10:04 10/31/18 10:04 10/31/18 10:04 Oxygen Flow Rate (L/min) 1 Oxygen Delivery Method Nasal Cannula Weight: 356 lb 14.854 oz Body Mass Index (BMI) 55.4 Intake and Output for Last 24 Hours 10/29/18 10/30/18 10/31/18 23:59 23:59 23:59 Intake Total 609 / 609 1228 / 1228 Output Total 1200 / 1200 900 / 900 Balance -591 / -591 328 / 328 General: Awake, Alert, Oriented x 3 HEENT: PERRL, EOMI, Sclera Non Icteric Neck: Supple, Good ROM, No Lymph Node Enlargement Lungs: Clear to auscultation Cardiovascular: Regular Rhythm, Normal S1, Normal S2, No Murmurs, No Rubs, No Gallops Vascular: No Carotid Bruits, Normal Femoral Pulses, Normal Radial Pulses, Normal Dorsalis Pedal Pulse, Normal Posterior Tibial Pulses Abdomen: Bowel Sounds Present, Soft, Non Tender, No HSM, No Organomegaly Extremities: No Cyanosis, No Clubbing, No edema Neurological: No Focal Motor or Sensory Deficit 10/30/18 12:30: WBC 14.3 H, RBC 4.00 L, Hgb 11.7 L, Hct 36.2 L, MCV 90.5, MCH 29.3, MCHC 32.3, RDW 16.8 H, RDW Differential 55.5 H, Plt Count 230, MPV 10.0, Immature Gran % (Auto) 0.500, Neut % (Auto) 90.0 H, Lymph % (Auto) 4.2 L, [place] % (Auto) 5.2, Eos % (Auto) 0.0, Baso % (Auto) 0.1, Absolute Neuts (auto) 12.9 H, Total Counted Not Reportable 10/30/18 12:30: PT Cancelled, INR Cancelled, APTT Cancelled 10/30/18 12:30: Sodium 135 L, Potassium 4.8, Chloride 100, Carbon Dioxide 25.0, Anion Gap 10, BUN 37 H, Creatinine 1.94 H, Est GFR (MDRD) Af Amer 33 L, Est GFR (MDRD) Non-Af 27 L, BUN/Creatinine Ratio 19.1, Glucose 161 H, Calcium 9.1, Total Bilirubin 0.80 10/30/18 12:30: Lactic Acid 1.2 10/30/18 12:35: B-Natriuretic Peptide 169.2 H 10/30/18 12:52: Urine Color Yellow, Urine Clarity Cloudy, Urine pH 6.5, Ur Specific [place] 1.010, Urine Protein 100 H, Urine Glucose (UA) Normal, Urine Ketones 5 H, Urine Occult Blood 250 H, Urine Nitrite Positive H, Urine Bilirubin Negative, Urine Urobilinogen Normal, Ur Leukocyte Esterase 500 H, Urine RBC 5-10 SEEN, Urine WBC 25-50 SEEN 10/30/18 14:21: PT 16.6 H, INR 1.3, APTT 35.3 10/30/18 16:48: pH 7.39, Bicarbonate Actual 23.4, POC Total CO2 25, Base Excess -2, O2 Saturation 95, ABG pCO2 38.7, ABG pO2 74 L 10/30/18 17:00: Magnesium 1.9, Troponin I < 0.015 10/31/18 03:55: Sodium 140, Potassium 4.1, Chloride 105, Carbon Dioxide 26.0, Anion Gap 9, BUN 38 H, Creatinine 2.05 H, Est GFR (MDRD) Af Amer 31 L, Est GFR (MDRD) Non-Af 25 L, BUN/Creatinine Ratio 18.5, Glucose 159 H, Calcium 8.4 L, Troponin I < 0.015 10/31/18 03:55: WBC 9.0, RBC 3.57 L, Hgb 10.4 L, Hct 32.6 L, MCV 91.3, MCH 29.1, MCHC 31.9 L, RDW 17.0 H, RDW Differential 55.3 H, Plt Count 213, MPV 10.1, Immature Gran % (Auto) 0.400, Neut % (Auto) 85.6 H, Lymph % (Auto) 7.3 L, [place] % (Auto) 6.3, Eos % (Auto) 0.3, Baso % (Auto) 0.1, Absolute Neuts (auto) 7.7, Total Counted Not Reportable Rhythm: EKG: ECHO: As above Stress Test: Cardiac Cath: PCI: CT Surgery: Holter monitor: EPS: PPM: CXR: Chest CT Scan: Assessment/Plan 1. Tachycardia: The patient apparently had some kind of narrow complex tachycardia although I cannot locate her EKG in the chart that defines this. This may have been related to her septic picture given her suprapubic catheter and UTI/sepsis. Her telemetry overnight has shown essentially normal sinus rhythm with PACs. Her LV function is normal by echocardiogram, in fact it is hyper dynamic with an EF around 75%, stage I diastolic dysfunction, and unable to quantitate RVSP. Her troponins have all been negative x3. This point I would not recommend any additional testing at this time. I believe her clinical condition and living condition would point away from aggressive workup at this time. She may require a noninvasive stress test as an outpatient when she is recovered from her UTI. Her chest x-ray shows no significant pulmonary infiltrate, and her chest CT scan shows no overt pulmonary embolus. I believe the patient's excessive amount of Neurontin may be contributing to her mental status changes, I would recommend neurologic consultation for adjustment if indicated. Do not believe the patient requires catheterization at this time. 2. Obstructive sleep apnea: The patient has a diagnosed obstructive sleep apnea and was recommend nasal CPAP. Continue present therapy. 3. Thank you very much for the opportunity to participate in the cardiac care of your patient. Please call with any questions. We will sign off. Consultation time took place between 9 and 9:30 AM. Code Visit Inpatient E&M: 08040 Init Hosp L2
[2018-10-31 11:31] LABS: Bedside Glucose 142 mg/dL (70-110)
--- NOTE | 2018-10-31 13:16 | PCM.CON.CC ---
Reason for Consult Date of Consultation: 10/31/18 Reason for Consultation: Encephalopathy/SVT History of Present Illness: The patient is a 73-year-old female, with a history as outlined below, who initially presented to the emergency department on October 30 with altered mentation. The patient does have a history of severe obstructive sleep apnea, based off of the initial diagnostic polysomnogram completed in May 2014. However, she is noncompliant with use of nocturnal noninvasive positive pressure ventilation. The patient is super morbidly obese and is on a number of sedating medications in her home environment. On presentation to the emergency department, the patient was noted to be afebrile hemodynamically stable. She was maintaining appropriate oxygen saturations on 4 L/min via nasal cannula. Laboratory evaluation revealed a mildly elevated white blood cell count of 14,000. Coagulation profile was within normal limits. Chemistry profile revealed acute kidney injury with a creatinine 1.94. Serum lactate was within normal limits. BNP was mildly elevated to 169 with a negative troponin. Urinalysis was positive for nitrites, leukocyte esterase, white blood cells and 3+ urine bacteria. Per documentation, the patient was admitted for sepsis but was given IV Lasix in the emergency department for congestive heart failure. She did receive IV ceftriaxone and was subsequently admitted to the progressive care unit. On the evening of October 30, the patient was noted to be in SVT with elevated heart rates, which was treated medically with adenosine. The patient stabilized but was then transferred to the medical intensive care unit over concerns for clinical decompensation overnight. A CTA chest was obtained, which was suboptimal for the evaluation of pulmonary embolism. Calcified subcarinal and right hilar adenopathy was noted without an identifiable pulmonary infectious process. The patient's last surface echocardiogram revealed normal LV size and thickness with an ejection fraction of 75% and stage I diastolic dysfunction. The pulmonary artery systolic pressure was unable to be estimated. Past Medical History Past Medical History (Chronic Problems): Chronic Problems Debility (Chronic) VITA (obstructive sleep apnea) (Chronic) Allergies adhesive tape Allergy (Verified 10/30/18 17:29) blisters Influenza Virus Vaccines Allergy (Verified 10/30/18 17:29) shortness of breath/severe wheezing iron Allergy (Verified 10/30/18 17:29) from IV form chest pressure and heart palpitations Sulfa (Sulfonamide Antibiotics) Allergy (Verified 10/30/18 17:29) Shortness of breath bactrim does not work for her-per pcp paperwork meloxicam [From Mob] Adverse Reaction (Verified 10/30/18 17:29) gi upset seasonal allergies Allergy (Uncoded 10/30/18 17:29) Other Home Medications: Ambulatory Orders Medication Instructions Recorded DiphenhydrAMINE [Benadryl] 25 mg PO BID PRN PRN 09/30/13 Furosemide [Lasix] 20 mg PO TID 09/30/13 Pantoprazole Sodium [Protonix] 40 mg PO DAILY 09/30/13 Pravastatin [Pravachol] 20 mg PO QHS 09/30/13 Albuterol Inhaler [Ventolin Hfa] 2 puff INHALATION Q4H PRN PRN 10/30/18 Baclofen 10 mg PO TID PRN PRN 10/30/18 Cholecalciferol (VIT D3) [Vitamin 1,000 unit PO DAILY 10/30/18 D] Ciprofloxacin [Cipro] 500 mg PO BID PRN 10/30/18 Cranberry Conc/Ascorbic Acid 1 each PO BID 10/30/18 [Cranberry Concentrate Softgel] Cyanocobalamin [Vitamin B12] 1,000 mcg PO DAILY@0800 10/30/18 Diphenoxylate/Atrop [Lomotil] 1 tablet PO 4X/DAY PRN PRN 10/30/18 Duloxetine Hcl [Cymbalta] 30 mg PO DAILY 10/30/18 Fluticasone 0.05% [Flonase Nasal 2 spray NASAL DAILY 10/30/18 [place]] Gabapentin [Neurontin] 1,200 mg PO 4X/DAY 10/30/18 Guaifenesin [Mucinex] 1,200 mg PO BID PRN 10/30/18 Hydrocodone Bitart/Apap 5-325 1 tablet PO Q6H PRN PRN 10/30/18 [[place] 5MG-325MG] Lisinopril [Zestril] 10 mg PO DAILY 10/30/18 Metformin HCl [Glucophage] 500 mg PO BID 10/30/18 Metoprolol(XL)Succ [Toprol Xl 25 mg PO DAILY 10/30/18 (Beta [place])] Multivitamins,Ther W-Minerals 1 tablet PO 4X/DAY 10/30/18 [Multivitamin With Minerals] Mupirocin [Bactroban] 1 applicatio TOPICAL BID 10/30/18 Nitrofurantoin Macrocrystals 100 mg PO DAILY 10/30/18 [Macrobid] Nystatin Powder [Mycostatin Powder] 1 applicatio TOPICAL BID PRN PRN 10/30/18 Oxybutynin Chloride [Ditropan Xl] 15 mg PO DAILY 10/30/18 Potassium (Otc) [Potassium Otc] 99 mg PO DAILY 10/30/18 Ranitidine [Zantac] 150 mg PO BID 10/30/18 Triamcinolone 0.1% Dental Pst 1 applicatio TOPICAL 4X/DAY 10/30/18 [Kenalog] Venlafaxine XR [Effexor Xr] 150 mg PO BID 10/30/18 Vitamin E 400 units PO BID 10/30/18 levETIRAcetam tablet [Keppra 500 mg PO QHS 10/30/18 tablet] Surgical History: noncontributory Psychiatric History: Anxiety, Depression [employer]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 Lives: Alone Smoking Status: Never smoker - *Family History Maternal History Items: Unknown Paternal History Items: No pertinent history Review of Systems Constitutional: Denies: Chills, Fever, Weight Change HEENT: Denies: Head Aches, Sinus Congestion, Sinus Drainage Cardiovascular: Denies: Chest Pain, Palpitations Respiratory: Denies: Cough, Shortness of breath at rest, Sputum production Gastrointestinal: Denies: Abdominal Pain, Nausea, Vomiting Genitourinary: Denies: Dysuria Musculoskeletal: Reports: Back Pain Skin: Denies: Rash, Wounds Neurological: Denies: Numbness, Tingling, Focal weakness Psychiatric: Reports: Anxiety Hematologic/ Lymphatic: Denies: Easy Bruising, Easy Bleeding Patient Problems: Active and Suspected Problems Sepsis (Acute) Acute metabolic encephalopathy (Acute) MICHAELLE (acute kidney injury) (Acute) Depression (Acute) Shortness of breath (Acute) Tachycardia (Acute) Objective: The patient's most recent lab work, culture data and imaging studies have all been personally reviewed. - Physical Exam General: Alert, Confused, Disoriented HEENT: Atraumatic, PERRLA, Normocephalic Oral: No Gingival or Mucosal Lesions/ Ulcerations Neck: Supple, No Nodes, Trachea Midline, - - Large neck circumference with redundant soft tissue. Lungs: No rhonchi, No wheeze, No rales, Diminished, - - Poor inspiratory effort Cardiovascular: Regular rate, Regular Rhythm, Normal S1, Normal S2, No murmurs Abdomen: Bowel Sounds Present, Soft, Non Tender, Obese Extremities: No clubbing, No cyanosis, Edema Skin: No breakdown Musculoskeletal: No Muscle Wasting Neurological: - - No focal neurological deficits. Psych/Mental Status: Flat Affect Vital Signs Temp Pulse Resp BP Pulse Ox 37.4 C H 94 18 135/79 H 92 10/31/18 11:50 10/31/18 11:53 10/31/18 11:50 10/31/18 11:53 10/31/18 11:50 Oxygen Flow Rate (L/min) 1 Oxygen Delivery Method Nasal Cannula Weight: 356 lb 14.854 oz Body Mass Index (BMI) 55.4 Intake and Output for Last 24 Hours 10/29/18 10/30/18 10/31/18 23:59 23:59 23:59 Intake Total 609 / 609 1228 / 1228 Output Total 1200 / 1200 900 / 900 Balance -591 / -591 328 / 328 Microbiology Past 72 Hours 10/30/18 17:30 Gram Stain - Final Wound - Aerobic & Anaerobic Swabs 10/30/18 12:52 Urine Culture - Final Urine Catheter - Henry Mixed Gram Pos & Gram Neg Org Laboratory Tests Past 24 Hrs 10/30/18 10/30/18 10/30/18 12:30 12:35 14:21 WBC RBC Hgb Hct MCV MCH MCHC RDW RDW Differential Plt Count MPV Immature Gran % (Auto) Neut % (Auto) Lymph % (Auto) [place] % (Auto) Eos % (Auto) Baso % (Auto) Absolute Neuts (auto) Absolute Lymphs (auto) Total Counted Not Reportable Differential Comment SCANNED PT 16.6 H INR 1.3 APTT 35.3 Specimen Type Sample Site pH Bicarbonate Actual POC Total CO2 Base Excess O2 Saturation ABG pCO2 ABG pO2 O2 Delivery Device Liter Flow Blood Gas Notified Whom Blood Gas Notified Time Sodium Potassium Chloride Carbon Dioxide Anion Gap BUN Creatinine Estim Creat Clear Calc Est GFR (MDRD) Af Amer Est GFR (MDRD) Non-Af BUN/Creatinine Ratio Glucose Calcium Magnesium Troponin I B-Natriuretic Peptide 169.2 H 10/30/18 10/30/18 10/31/18 16:48 17:00 03:55 WBC RBC Hgb Hct MCV MCH MCHC RDW RDW Differential Plt Count MPV Immature Gran % (Auto) Neut % (Auto) Lymph % (Auto) [place] % (Auto) Eos % (Auto) Baso % (Auto) Absolute Neuts (auto) Absolute Lymphs (auto) Total Counted Differential Comment PT INR APTT Specimen Type ART Sample Site L Radial pH 7.39 Bicarbonate Actual 23.4 POC Total CO2 25 Base Excess -2 O2 Saturation 95 ABG pCO2 38.7 ABG pO2 74 L O2 Delivery Device Nasal Can Liter Flow 6.0 Blood Gas Notified Whom [facility] Blood Gas Notified Time 1647 Sodium 140 Potassium 4.1 Chloride 105 Carbon Dioxide 26.0 Anion Gap 9 BUN 38 H Creatinine 2.05 H Estim Creat Clear Calc 24.12 Est GFR (MDRD) Af Amer 31 L Est GFR (MDRD) Non-Af 25 L BUN/Creatinine Ratio 18.5 Glucose 159 H Calcium 8.4 L Magnesium 1.9 Troponin I < 0.015 < 0.015 B-Natriuretic Peptide 10/31/18 03:55 WBC 9.0 RBC 3.57 L Hgb 10.4 L Hct 32.6 L MCV 91.3 MCH 29.1 MCHC 31.9 L RDW 17.0 H RDW Differential 55.3 H Plt Count 213 MPV 10.1 Immature Gran % (Auto) 0.400 Neut % (Auto) 85.6 H Lymph % (Auto) 7.3 L [place] % (Auto) 6.3 Eos % (Auto) 0.3 Baso % (Auto) 0.1 Absolute Neuts (auto) 7.7 Absolute Lymphs (auto) 0.66 L Total Counted Not Reportable Differential Comment PT INR APTT Specimen Type Sample Site pH Bicarbonate Actual POC Total CO2 Base Excess O2 Saturation ABG pCO2 ABG pO2 O2 Delivery Device Liter Flow Blood Gas Notified Whom Blood Gas Notified Time Sodium Potassium Chloride Carbon Dioxide Anion Gap BUN Creatinine Estim Creat Clear Calc Est GFR (MDRD) Af Amer Est GFR (MDRD) Non-Af BUN/Creatinine Ratio Glucose Calcium Magnesium Troponin I B-Natriuretic Peptide POC Glucose 10/31/18 10/31/18 10/30/18 11:23 05:23 23:55 POC Glucose 142 H 173 H 151 H 10/30/18 17:50 POC Glucose 152 H Clinical Impression(s) from Imaging Studies Chest X-Ray 10/30/18 12:27 IMPRESSION: Cardiomegaly and CHF. Electronically Signed: Joaquin Douglass MD at 13:20 EST Tel [phone], Service support , Chest CTA 10/30/18 17:16 IMPRESSION: 1. Study is limited for evaluation of pulmonary embolus. No obvious central emboli. Small, peripheral emboli could be missed. 2. No acute process demonstrated. 3. Old granulomatous disease. Electronically Signed: Cecy Hodge MD at 21:28 EST Tel , Service support , Chest X-Ray 10/31/18 05:55 IMPRESSION: Mild interstitial edema. Electronically Signed: Cm Feliciano DO at 8:50 EST Tel , Service support , Assessment/Plan Active and Suspected Problems Sepsis (Acute) Acute metabolic encephalopathy (Acute) MICHAELLE (acute kidney injury) (Acute) Depression (Acute) Shortness of breath (Acute) Tachycardia (Acute) RECOMMENDATIONS: 1. Continue antibiotics. 2. Recommend further de-escalation of the patient's Neurontin and outpatient narcotic pain regimen. 3. Continue beta-genaro therapy. 4. Wean supplemental oxygen and encourage incentive spirometer use. Mobilize patient as tolerated. 5. Recommend empiric utilization of nocturnal noninvasive positive pressure ventilation. IMPRESSIONS: 1. Sepsis secondary to presumptive cystitis Continue antibiotics pending finalized culture results. Recommend judicious use of supplemental IV fluids, given underlying diastolic dysfunction. The patient remains hemodynamically stable. 2. Encephalopathy Likely multifactorial in etiology with underlying urinary source of infection, in combination with renal insufficiency and polypharmacy. Continue treatment for the patient's identified infectious process. Consider further de-escalation of the patient's sedating outpatient medications. 3. Super morbid obesity/obstructive sleep apnea/chronic hypoxemic respiratory failure The patient does have a known history of obstructive sleep apnea and chronic supplemental oxygen utilization. However, per report, she is noncompliant with the use of nocturnal noninvasive positive pressure ventilation. 4. Supraventricular tachycardia The patient has been evaluated by cardiology and is currently on a beta-genaro. Her heart rate is currently under control. SVT was likely related to underlying infectious process. 5. Hypertension/diabetes/neuropathy/chronic pain syndrome Complicates care, management, recovery and prognosis. Recommend de-escalation of the patient's Neurontin and narcotic pain regimen. This note was generated with [employer] dictation software. It may contain incorrect words, spelling, and punctuation that were not noted in checking the note before signing. DISPOSITION: The patient is medically stable for transfer out of the intensive care unit. Given the patient's lack of further ICU needs, will sign off. Please call with any additional questions. Code Visit Inpatient E&M: 65046 Init Hosp L3
--- NOTE | 2018-10-31 13:29 | CON.PCM_ITS ---
Reason for Consult Date of Consultation: 10/31/18 Reason for Consultation: Encephalopathy/SVT History of Present Illness: The patient is a 73-year-old female, with a history as outlined below, who initially presented to the emergency department on October 30 with altered mentation. The patient does have a history of severe obstructive sleep apnea, based off of the initial diagnostic polysomnogram completed in May 2014. However, she is noncompliant with use of nocturnal noninvasive positive pressure ventilation. The patient is super morbidly obese and is on a number of sedating medications in her home environment. On presentation to the emergency department, the patient was noted to be afebrile hemodynamically stable. She was maintaining appropriate oxygen saturations on 4 L/min via nasal cannula. Laboratory evaluation revealed a mildly elevated white blood cell count of 14,000. Coagulation profile was within normal limits. Chemistry profile revealed acute kidney injury with a creatinine 1.94. Serum lactate was within normal limits. BNP was mildly elevated to 169 with a negative troponin. Urinalysis was positive for nitrites, leukocyte esterase, white blood cells and 3+ urine bacteria. Per documentation, the patient was admitted for sepsis but was given IV Lasix in the emergency department for congestive heart failure. She did receive IV ceftriaxone and was subsequently admitted to the progressive care unit. On the evening of October 30, the patient was noted to be in SVT with elevated heart rates, which was treated medically with adenosine. The patient stabilized but was then transferred to the medical intensive care unit over concerns for clinical decompensation overnight. A CTA chest was obtained, which was suboptimal for the evaluation of pulmonary embolism. Calcified subcarinal and right hilar adenopathy was noted without an identifiable pulmonary infectious process. The patient's last surface echocardiogram revealed normal LV size and thickness with an ejection fraction of 75% and stage I diastolic dysfunction. The pulmonary artery systolic pressure was unable to be estimated. Past Medical History Past Medical History (Chronic Problems): Chronic Problems Debility (Chronic) VITA (obstructive sleep apnea) (Chronic) Allergies adhesive tape Allergy (Verified 10/30/18 17:29) blisters Influenza Virus Vaccines Allergy (Verified 10/30/18 17:29) shortness of breath/severe wheezing iron Allergy (Verified 10/30/18 17:29) from IV form chest pressure and heart palpitations Sulfa (Sulfonamide Antibiotics) Allergy (Verified 10/30/18 17:29) Shortness of breath bactrim does not work for her-per pcp paperwork meloxicam [From Mob] Adverse Reaction (Verified 10/30/18 17:29) gi upset seasonal allergies Allergy (Uncoded 10/30/18 17:29) Other Home Medications: Ambulatory Orders Medication Instructions Recorded DiphenhydrAMINE [Benadryl] 25 mg PO BID PRN PRN 09/30/13 Furosemide [Lasix] 20 mg PO TID 09/30/13 Pantoprazole Sodium [Protonix] 40 mg PO DAILY 09/30/13 Pravastatin [Pravachol] 20 mg PO QHS 09/30/13 Albuterol Inhaler [Ventolin Hfa] 2 puff INHALATION Q4H PRN PRN 10/30/18 Baclofen 10 mg PO TID PRN PRN 10/30/18 Cholecalciferol (VIT D3) [Vitamin 1,000 unit PO DAILY 10/30/18 D] Ciprofloxacin [Cipro] 500 mg PO BID PRN 10/30/18 Cranberry Conc/Ascorbic Acid 1 each PO BID 10/30/18 [Cranberry Concentrate Softgel] Cyanocobalamin [Vitamin B12] 1,000 mcg PO DAILY@0800 10/30/18 Diphenoxylate/Atrop [Lomotil] 1 tablet PO 4X/DAY PRN PRN 10/30/18 Duloxetine Hcl [Cymbalta] 30 mg PO DAILY 10/30/18 Fluticasone 0.05% [Flonase Nasal 2 spray NASAL DAILY 10/30/18 [place]] Gabapentin [Neurontin] 1,200 mg PO 4X/DAY 10/30/18 Guaifenesin [Mucinex] 1,200 mg PO BID PRN 10/30/18 Hydrocodone Bitart/Apap 5-325 1 tablet PO Q6H PRN PRN 10/30/18 [[place] 5MG-325MG] Lisinopril [Zestril] 10 mg PO DAILY 10/30/18 Metformin HCl [Glucophage] 500 mg PO BID 10/30/18 Metoprolol(XL)Succ [Toprol Xl 25 mg PO DAILY 10/30/18 (Beta Genaro)] Multivitamins,Ther W-Minerals 1 tablet PO 4X/DAY 10/30/18 [Multivitamin With Minerals] Mupirocin [Bactroban] 1 applicatio TOPICAL BID 10/30/18 Nitrofurantoin Macrocrystals 100 mg PO DAILY 10/30/18 [Macrobid] Nystatin Powder [Mycostatin Powder] 1 applicatio TOPICAL BID PRN PRN 10/30/18 Oxybutynin Chloride [Ditropan Xl] 15 mg PO DAILY 10/30/18 Potassium (Otc) [Potassium Otc] 99 mg PO DAILY 10/30/18 Ranitidine [Zantac] 150 mg PO BID 10/30/18 Triamcinolone 0.1% Dental Pst 1 applicatio TOPICAL 4X/DAY 10/30/18 [Kenalog] Venlafaxine XR [Effexor Xr] 150 mg PO BID 10/30/18 Vitamin E 400 units PO BID 10/30/18 levETIRAcetam tablet [Keppra 500 mg PO QHS 10/30/18 tablet] Surgical History: noncontributory Psychiatric History: Anxiety, Depression SIGNAL INSPECTOR History: No pertinent SIGNAL INSPECTOR history Lives: Alone Smoking Status: Never smoker - *Family History Maternal History Items: Unknown Paternal History Items: No pertinent history Review of Systems Constitutional: Denies: Chills, Fever, Weight Change HEENT: Denies: Head Aches, Sinus Congestion, Sinus Drainage Cardiovascular: Denies: Chest Pain, Palpitations Respiratory: Denies: Cough, Shortness of breath at rest, Sputum production Gastrointestinal: Denies: Abdominal Pain, Nausea, Vomiting Genitourinary: Denies: Dysuria Musculoskeletal: Reports: Back Pain Skin: Denies: Rash, Wounds Neurological: Denies: Numbness, Tingling, Focal weakness Psychiatric: Reports: Anxiety Hematologic/ Lymphatic: Denies: Easy Bruising, Easy Bleeding Patient Problems: Active and Suspected Problems Sepsis (Acute) Acute metabolic encephalopathy (Acute) MICHAELLE (acute kidney injury) (Acute) Depression (Acute) Shortness of breath (Acute) Tachycardia (Acute) Objective: The patient's most recent lab work, culture data and imaging studies have all been personally reviewed. - Physical Exam General: Alert, Confused, Disoriented HEENT: Atraumatic, PERRLA, Normocephalic Oral: No Gingival or Mucosal Lesions/ Ulcerations Neck: Supple, No Nodes, Trachea Midline, - - Large neck circumference with redundant soft tissue. Lungs: No rhonchi, No wheeze, No rales, Diminished, - - Poor inspiratory effort Cardiovascular: Regular rate, Regular Rhythm, Normal S1, Normal S2, No murmurs Abdomen: Bowel Sounds Present, Soft, Non Tender, Obese Extremities: No clubbing, No cyanosis, Edema Skin: No breakdown Musculoskeletal: No Muscle Wasting Neurological: - - No focal neurological deficits. Psych/Mental Status: Flat Affect Vital Signs Temp Pulse Resp BP Pulse Ox 37.4 C H 94 18 135/79 H 92 10/31/18 11:50 10/31/18 11:53 10/31/18 11:50 10/31/18 11:53 10/31/18 11:50 Oxygen Flow Rate (L/min) 1 Oxygen Delivery Method Nasal Cannula Weight: 356 lb 14.854 oz Body Mass Index (BMI) 55.4 Intake and Output for Last 24 Hours 10/29/18 10/30/18 10/31/18 23:59 23:59 23:59 Intake Total 609 / 609 1228 / 1228 Output Total 1200 / 1200 900 / 900 Balance -591 / -591 328 / 328 Microbiology Past 72 Hours 10/30/18 17:30 Gram Stain - Final Wound - Aerobic & Anaerobic Swabs 10/30/18 12:52 Urine Culture - Final Urine Catheter - Henry Mixed Gram Pos & Gram Neg Org Laboratory Tests Past 24 Hrs 10/30/18 10/30/18 10/30/18 12:30 12:35 14:21 WBC RBC Hgb Hct MCV MCH MCHC RDW RDW Differential Plt Count MPV Immature Gran % (Auto) Neut % (Auto) Lymph % (Auto) [place] % (Auto) Eos % (Auto) Baso % (Auto) Absolute Neuts (auto) Absolute Lymphs (auto) Total Counted Not Reportable Differential Comment SCANNED PT 16.6 H INR 1.3 APTT 35.3 Specimen Type Sample Site pH Bicarbonate Actual POC Total CO2 Base Excess O2 Saturation ABG pCO2 ABG pO2 O2 Delivery Device Liter Flow Blood Gas Notified Whom Blood Gas Notified Time Sodium Potassium Chloride Carbon Dioxide Anion Gap BUN Creatinine Estim Creat Clear Calc Est GFR (MDRD) Af Amer Est GFR (MDRD) Non-Af BUN/Creatinine Ratio Glucose Calcium Magnesium Troponin I B-Natriuretic Peptide 169.2 H 10/30/18 10/30/18 10/31/18 16:48 17:00 03:55 WBC RBC Hgb Hct MCV MCH MCHC RDW RDW Differential Plt Count MPV Immature Gran % (Auto) Neut % (Auto) Lymph % (Auto) [place] % (Auto) Eos % (Auto) Baso % (Auto) Absolute Neuts (auto) Absolute Lymphs (auto) Total Counted Differential Comment PT INR APTT Specimen Type ART Sample Site L Radial pH 7.39 Bicarbonate Actual 23.4 POC Total CO2 25 Base Excess -2 O2 Saturation 95 ABG pCO2 38.7 ABG pO2 74 L O2 Delivery Device Nasal Can Liter Flow 6.0 Blood Gas Notified [facility] Blood Gas Notified Time 1647 Sodium 140 Potassium 4.1 Chloride 105 Carbon Dioxide 26.0 Anion Gap 9 BUN 38 H Creatinine 2.05 H Estim Creat Clear Calc 24.12 Est GFR (MDRD) Af Amer 31 L Est GFR (MDRD) Non-Af 25 L BUN/Creatinine Ratio 18.5 Glucose 159 H Calcium 8.4 L Magnesium 1.9 Troponin I < 0.015 < 0.015 B-Natriuretic Peptide 10/31/18 03:55 WBC 9.0 RBC 3.57 L Hgb 10.4 L Hct 32.6 L MCV 91.3 MCH 29.1 MCHC 31.9 L RDW 17.0 H RDW Differential 55.3 H Plt Count 213 MPV 10.1 Immature Gran % (Auto) 0.400 Neut % (Auto) 85.6 H Lymph % (Auto) 7.3 L [place] % (Auto) 6.3 Eos % (Auto) 0.3 Baso % (Auto) 0.1 Absolute Neuts (auto) 7.7 Absolute Lymphs (auto) 0.66 L Total Counted Not Reportable Differential Comment PT INR APTT Specimen Type Sample Site pH Bicarbonate Actual POC Total CO2 Base Excess O2 Saturation ABG pCO2 ABG pO2 O2 Delivery Device Liter Flow Blood Gas Notified Whom Blood Gas Notified Time Sodium Potassium Chloride Carbon Dioxide Anion Gap BUN Creatinine Estim Creat Clear Calc Est GFR (MDRD) Af Amer Est GFR (MDRD) Non-Af BUN/Creatinine Ratio Glucose Calcium Magnesium Troponin I B-Natriuretic Peptide POC Glucose 10/31/18 10/31/18 10/30/18 11:23 05:23 23:55 POC Glucose 142 H 173 H 151 H 10/30/18 17:50 POC Glucose 152 H Clinical Impression(s) from Imaging Studies Chest X-Ray 10/30/18 12:27 IMPRESSION: Cardiomegaly and CHF. Electronically Signed: Joaquin Dougalss MD at 13:20 EST Tel [phone], Service support , Chest CTA 10/30/18 17:16 IMPRESSION: 1. Study is limited for evaluation of pulmonary embolus. No obvious central emboli. Small, peripheral emboli could be missed. 2. No acute process demonstrated. 3. Old granulomatous disease. Electronically Signed: Cecy Hodge MD at 21:28 EST Tel , Service support , Chest X-Ray 10/31/18 05:55 IMPRESSION: Mild interstitial edema. Electronically Signed: Cm Feliciano DO at 8:50 EST Tel , Service support , Assessment/Plan Active and Suspected Problems Sepsis (Acute) Acute metabolic encephalopathy (Acute) MICHAELLE (acute kidney injury) (Acute) Depression (Acute) Shortness of breath (Acute) Tachycardia (Acute) RECOMMENDATIONS: 1. Continue antibiotics. 2. Recommend further de-escalation of the patient's Neurontin and outpatient narcotic pain regimen. 3. Continue beta-genaro therapy. 4. Wean supplemental oxygen and encourage incentive spirometer use. Mobilize patient as tolerated. 5. Recommend empiric utilization of nocturnal noninvasive positive pressure ventilation. IMPRESSIONS: 1. Sepsis secondary to presumptive cystitis Continue antibiotics pending finalized culture results. Recommend judicious use of supplemental IV fluids, given underlying diastolic dysfunction. The patient remains hemodynamically stable. 2. Encephalopathy Likely multifactorial in etiology with underlying urinary source of infection, in combination with renal insufficiency and polypharmacy. Continue treatment for the patient's identified infectious process. Consider further de-escalation of the patient's sedating outpatient medications. 3. Super morbid obesity/obstructive sleep apnea/chronic hypoxemic respiratory failure The patient does have a known history of obstructive sleep apnea and chronic supplemental oxygen utilization. However, per report, she is noncompliant with the use of nocturnal noninvasive positive pressure ventilation. 4. Supraventricular tachycardia The patient has been evaluated by cardiology and is currently on a beta-genaro. Her heart rate is currently under control. SVT was likely related to underlying infectious process. 5. Hypertension/diabetes/neuropathy/chronic pain syndrome Complicates care, management, recovery and prognosis. Recommend de-escalation of the patient's Neurontin and narcotic pain regimen. This note was generated with Inbox dictation software. It may contain incorrect words, spelling, and punctuation that were not noted in checking the note before signing. DISPOSITION: The patient is medically stable for transfer out of the intensive care unit. Given the patient's lack of further ICU needs, will sign off. Please call with any additional questions. Code Visit Inpatient E&M: 67832 Init Hosp L3
--- NOTE | 2018-10-31 15:10 | CASEMGMT ---
TONI MARTINES ASSESSMENT: Face to Face with patient for initial transition planning/care coordination assessment. TONI MARTINES introduced self and role at [facility]. Pt voices understanding and consents to assessment at this time. Pt resting in bed in no distress at this time. Pt's sister/HCPOA, Fabiana, @ bedside. Pt is A/O at this time and answers all questions appropriately, although does have some difficulty w/ recall and finding words at times Care providers, pharmacy, and demographics verified/updated at this time. PCP: [facility] Specialists: BRAILLE CODER, Ian, @ Dr Robertson's office, Urologist @ [facility] Preferred Pharmacy: [facility] Insurance: MCR, [employer] supplement. Prescription Benefit: Yes Living Will/HPOA: Pt states she has both LW and HCPOA, which is her sister, Fabiana. Copies not found in e-chart. Fabiana states she will try and locate these and bring them in so they can be scanned in. LNOK: Sister, Fabiana Living Arrangements/DME: Pt lives alone. Pt has been non-ambulatory for 7 yrs. Has neighbor friend/caregiver that comes into her home 2-4 times a day to help her with ADL's, getting out of bed, assisting with shower and getting dressed, transferring her, and also assists with getting to bed at night. Pt uses [id number]-lg-eomly lift for transfers and power W/C to get around her home. Pt is able to prepare simple meals plans from her Power W/C. Pt states has shower chair, 17 high toilet, hospital bed, medical alert button, and wears O2 @ 2L/M @ HS which she gets through [employer]. Pt and POA both state they do not feel pt needs any further DME at this time. Transportation: Pt does not drive. Her sister, Fabiana, or her caregiver, Kia, provide transportation. HHC/SNF: Pt states has been to [facility] and does not want to go back. Discussed SNF and MCR guidelines, making pt and POA aware that she would need to be IN-pt for 3 MN's for qualifying stay @ SNF. Both pt and POA agreeable to pt going to TCU if she would be able to. If pt does not get qualifying stay, then pt is agreeable to Home with HHC. States does not have a preference of HHC agency. SW, Trini, made aware of pt requesting TCU if able. CM to follow for any further discharge planning/needs. Pt voices no further concerns/needs at this time. Advised pt to ask for CM if any further questions/concerns/needs arise. Voices understanding. Plan: TCU if gets qualifying stay or Home w/HHC: SN, PT/OT, and aides. Sabina CASHN RN CM
--- NOTE | 2018-10-31 15:30 | CASEMGMT ---
Social Work Received referral from PAULA Richardson that pt would like short term stay in TCU prior to returning home. VM left with Lubna in TCU leaving referral and requesting return call to let SW know if TCU can accept. Will await determination. Plan: TCU, pending acceptance JUAN Sarmiento
[2018-10-31 16:06] LABS: Bedside Glucose 107 mg/dL (70-110)
[2018-10-31 23:31] LABS: Bedside Glucose 106 mg/dL (70-110)
[2018-11-01] VITALS (17 sets, daily range): BP systolic 113–167; BP diastolic 67–83; PULSE 83–99; RESP 14–18; TEMP 36.9–37.6; O2SAT 94–96
[2018-11-01] MEDS: Piperacil/Tazobactam 3.375 GM/50 ML ML IV ×3 (05:41→22:19)
[2018-11-01] MEDS: Metoprolol Tartrate 5 MG/5 ML Vial IV ×4 (05:41→23:20)
[2018-11-01] MEDS: Heparin Injection (Vial) 5,000 UNIT/ML VIAL 5000 UNIT SC ×3 (05:43→22:19)
[2018-11-01] MEDS: 0.9% NaCl Peripheral Flush Adult/Peds IV ×4 (05:43→23:20)
[2018-11-01 06:01] LABS: Bedside Glucose 107 mg/dL (70-110)
[2018-11-01 08:38] LABS: Hematocrit 31.1 % (37-47); Hemoglobin 9.9 g/dl (12.0-15.0); Mean Corp Hgb Conc 31.8 g/gl (32-36); Mean Corpuscular Hgb 28.9 pg (27.0-32.0); Mean Corpuscular Volume 90.9 fL (81-99); Mean Platelet Vol. 9.9 fl (6.2-12.0); Platelet Count 197 K/mm3 (150-450); RBC Distribution Width CV 17.1 % (11.6-14.6); RBC Distribution Width SD 56.5 fl (35.1-43.9); Red Blood Count 3.42 M/mm3 (4.2-5.4); Scan Indicated on CBC? Y/N NO; White Blood Count 6.5 K/mm3 (4.4-11.0)
[2018-11-01 09:27] LABS: Anion Gap 10 (5-15); BUN 32 mg/dL (7-18); BUN/Creat Ratio 21.5 RATIO (10-20); Calcium,Total 7.9 mg/dL (8.5-10.1); Chloride 103 mmol/L (98-107); Creatinine, Serum 1.49 mg/dL (0.55-1.02); EST Glomerular Filtration Rate 37 mL/min (>60); Est Glom Filt Rate - Afr Amer 44 mL/min (>60); Estimated Creatinine Clearance 33.19 ml/min; Glucose 99 mg/dL (74-106); Potassium 4.1 mmol/L (3.5-5.1); Sodium Level 135 mmol/L (136-145)
--- NOTE | 2018-11-01 10:38 | PN_ITS ---
Patient Problems: Active and Suspected Problems Sepsis (Acute) Acute metabolic encephalopathy (Acute) MICHAELLE (acute kidney injury) (Acute) Depression (Acute) Shortness of breath (Acute) Tachycardia (Acute) Subjective: Patient seen much more coherent and awake this a.m. Went over her medications with her. Patient is on Keppra however is not sure why she was prescribed she denies history of seizures. She also stated her Neurontin is being weaned down by her primary neurologist Objective: GENERAL: Cooperative HEENT: Atraumatic; moist oral mucosa EYES; Anicteric, Normal Conjunctiva NECK; supple, normal thyroid, RESPIRATORY: Diminished to auscultation bilaterally, CARDIOVASCULAR: Regular S1 S2, no audible murmurs GI: soft, non-tender, normoactive bowel sounds, : No Renal angle tenderness; EXTREMITIES: , no clubbing, no cyanosis. MUSCULOSKELETAL: Contractures involving lower extremities NEURO: Awake no lateralizing signs SKIN: Excoriations skin folds abdomen PSYCH; flat affect Vitals/I&O's: Vital Signs Temp Pulse Resp BP Pulse Ox 98.4 F 91 14 133/72 H 94 11/01/18 08:55 11/01/18 08:55 11/01/18 08:55 11/01/18 08:55 11/01/18 08:55 Oxygen Flow Rate (L/min) 1 Oxygen Delivery Method Nasal Cannula Weight: 164.7 kg Body Mass Index (BMI) 55.4 Intake and Output for Last 24 Hours 10/30/18 10/31/18 11/01/18 23:59 23:59 23:59 Intake Total 609 / 609 2543 / 2543 355 / 355 Output Total 1200 / 1200 2200 / 2200 650 / 650 Balance -591 / -591 343 / 343 -295 / -295 Microbiology Past 72 Hours 10/30/18 17:30 Wound - Aerobic & Anaerobic Swabs Gram Stain - Final 10/30/18 12:52 Urine Catheter - Henry Urine Culture - Final Mixed Gram Pos & Gram Neg Org Laboratory Results 10/31/18 11:23: POC Glucose 142 H 10/31/18 16:00: POC Glucose 107 10/31/18 23:16: POC Glucose 106 11/01/18 05:51: POC Glucose 107 11/01/18 08:18: WBC 6.5, RBC 3.42 L, Hgb 9.9 L, Hct 31.1 L, MCV 90.9, MCH 28.9, MCHC 31.8 L, RDW 17.1 H, RDW Differential 56.5 H, Plt Count 197, MPV 9.9 11/01/18 08:18: Sodium 135 L, Potassium 4.1, Chloride 103, Carbon Dioxide 22.0, Anion Gap 10, BUN 32 H, Creatinine 1.49 H, Estim Creat Clear Calc 33.19, Est GFR (MDRD) Af Amer 44 L, Est GFR (MDRD) Non-Af 37 L, BUN/Creatinine Ratio 21.5 H, Glucose 99, Calcium 7.9 L, Magnesium 2.0 Current Medications Chlorhexidine Gluconate () 1 each TOPICAL DAILY [facility] Last Admin: 10/31/18 05:28 Dose: 1 each Fentanyl (Duragesic Patch) 25 mcg TRANSDERM. Q3D [facility] Last Admin: 10/30/18 21:06 Dose: 25 mcg Heparin Sodium (Porcine) (Heparin Na) 5,000 unit SC Q8 [facility] Last Admin: 11/01/18 05:43 Dose: 5,000 unit Sodium Chloride () 1,000 mls @ 100 mls/hr IV .Q10H [facility] Last Admin: 10/31/18 23:05 Dose: 100 mls/hr Piperacillin Sod/Tazobactam Sod (Zosyn) 3.375 gm in 50 mls @ 12.5 mls/hr IV Q8 [facility] Last Admin: 11/01/18 05:41 Dose: 12.5 mls/hr Fluconazole (Diflucan) 200 mg in 100 mls @ 100 mls/hr IV Q24 [facility] Last Admin: 10/31/18 09:21 Dose: 100 mls/hr Sodium Chloride () 250 mls @ 15 mls/hr IV .[id number] PRN PRN Reason: SALINE FLUSH Insulin Human Lispro (Humalog Kwikpen (Bkc)) 0 unit SC Q6 [facility]; Protocol Last Admin: 11/01/18 05:52 Dose: Not Given Metoprolol Tartrate (Lopressor (Beta Genaro)) 5 mg IV Q6 [facility] Last Admin: 11/01/18 05:41 Dose: 5 mg Nystatin (Mycostatin Powder) 1 applic TOPICAL BID [facility]; Protocol Last Admin: 10/31/18 23:07 Dose: 1 applicatio Sodium Chloride () 5 - 15 ml IV UD PRN PRN Reason: SALINE FLUSH Last Admin: 11/01/18 05:43 Dose: 5 ml Medical Necessity - Tobacco Use Smoking Status: Never smoker Assessment/Plan All Active Problems Sepsis (Acute) Acute metabolic encephalopathy (Acute) MICHAELLE (acute kidney injury) (Acute) Depression (Acute) Shortness of breath (Acute) Tachycardia (Acute) Suprapubic catheter dysfunction (Acute) UTI (urinary tract infection) (Acute) Patient is a 73-year-old lady brought to the emergency department as a result of altered mental status. An assessment of acute cystitis was made. Antibiotics initiated per protocol patient admitted for further management. Patient was t ransferred to the intensive care unit after she developed SVT 1. Sepsis secondary to acute cystitis secondary to presence of a suprapubic catheter. Patient was started on broad-spectrum antibiotic therapy after cultures have been sent. Urine cultures only showed only mixed organisms do plan to discontinue antibiotics after 11/01/2018 2. Acute metabolic encephalopathy secondary to acute kidney injury as well as sepsis 3. Acute kidney injury suspected to be secondary to ATN from patient underlying infection baseline creatinine of 0.8 patient creatinine on admission was 1.94 which went up to 2.05 as of 10/31/2018: Kidney function improving slowly 4. SVT probably prepped stated by patient underlying infection patient converted back to sinus rhythm with adenosine 5. Chronic hypoxic respiratory failure 6. Obstructive sleep apnea apparently noncompliant with CPAP 7. Morbid obesity with BMI of 55.9 8. Physical debility patient is wheelchair-bound 9. Presence of suprapubic catheter 10. Diabetes mellitus type II: Controlled; patient's oral hypoglycemics held. Placed on long acting insulin, Accu-Cheks a.c. and at bedtime and covered with sliding scale insulin 11. Hypertension-blood pressure controlled, home medications continued with dose adjustment as needed 12. Dyslipidemia-patient is on statin therapy, continued at home dose 13. Diabetic polyneuropathy 14.?? Seizure disorder patient is on Keppra indication not clear 15. DVT prophylaxis; SC heparin Advance planning; did discuss with the patient and family regarding her advanced directives as well as CODE STATUS. Did explain the various modalities involved ( FULL CODE, DNR CCA, DNR CCA with no intubation, and DNR CC ) wishes to remain full code. Order was placed. Time spent on discussion 22 minutes. Code Visit Inpatient E&M: 63454 Subs Hosp L2 Procedures: 59863 Advncd Care Plan 30 Min
[2018-11-01] MEDS: Nystatin Powder 15gm Bottle 1 APPLIC TOPICAL ×2 (11:55→22:19)
[2018-11-01 12:35] LABS: Bedside Glucose 125 mg/dL (70-110)
--- NOTE | 2018-11-01 14:10 | CHAPLAIN ---
Type of Pastoral Visit _x__ Initial Visit ___ Follow-up Visit ___ On-call Visit ___ General Patient Visit ___ Spiritual Assessment ___ Family Conference ___ Bereavement ___ Rapid Response ___ Code Blue ___ Other (describe below) Pastoral Care Referral From _x__ Patient ___ Family ___ Nurse ___ Physician ___ Extern ___ Human Geography Instructor ___ Other (describe below) Sacrament/Intervention _x__ Active listening ___ Anointing ___ Catholic ___ Bereavement ___ Communion ___ Diane exploration ___ _x__ Life review _x__ Prayer ___ Reconciliation ___ Sacrament of Sick _x__ Supportive presence ___ Wedding ___ Other (describe below) Pastoral Comments
--- NOTE | 2018-11-01 15:31 | CASEMGMT ---
[facility] TCU can take patient at d/c. Ashwini BONILLA MSW
[2018-11-01 17:25] LABS: Bedside Glucose 122 mg/dL (70-110)
[2018-11-01] MEDS: 0.9% Normal Saline 1,000 ML 100 ML IV (22:31)
[2018-11-01 23:36] LABS: Bedside Glucose 137 mg/dL (70-110)
[2018-11-02] VITALS (9 sets, daily range): BP systolic 160–165; BP diastolic 70–87; PULSE 69–126; RESP 15–16; TEMP 36.9–37.5; O2SAT 95–97
[2018-11-02] MEDS: Acetaminophen 325 MG Tablet 650 MG PO (00:57)
[2018-11-02 05:25] LABS: Hematocrit 31.4 % (37-47); Hemoglobin 9.9 g/dl (12.0-15.0); Mean Corp Hgb Conc 31.5 g/gl (32-36); Mean Corpuscular Hgb 28.8 pg (27.0-32.0); Mean Corpuscular Volume 91.3 fL (81-99); Mean Platelet Vol. 10.2 fl (6.2-12.0); Platelet Count 202 K/mm3 (150-450); RBC Distribution Width CV 16.6 % (11.6-14.6); RBC Distribution Width SD 53.5 fl (35.1-43.9); Red Blood Count 3.44 M/mm3 (4.2-5.4); White Blood Count 6.6 K/mm3 (4.4-11.0)
[2018-11-02] MEDS: Heparin Injection (Vial) 5,000 UNIT/ML VIAL 5000 UNIT SC (05:31)
[2018-11-02] MEDS: Metoprolol Tartrate 5 MG/5 ML Vial IV (05:32)
[2018-11-02] MEDS: Piperacil/Tazobactam 3.375 GM/50 ML ML IV (05:32)
[2018-11-02 05:44] LABS: Anion Gap 10 (5-15); BUN 23 mg/dL (7-18); Calcium,Total 8.5 mg/dL (8.5-10.1); Chloride 103 mmol/L (98-107); Creatinine, Serum 1.21 mg/dL (0.55-1.02); EST Glomerular Filtration Rate 47 mL/min (>60); Est Glom Filt Rate - Afr Amer 56 mL/min (>60); Estimated Creatinine Clearance 40.87 ml/min; Glucose 131 mg/dL (74-106); Potassium 3.2 mmol/L (3.5-5.1); Sodium Level 136 mmol/L (136-145)
[2018-11-02 05:47] LABS: Bedside Glucose 142 mg/dL (70-110)
[2018-11-02 05:55] LABS: Scan Indicated on CBC? Y/N NO
--- NOTE | 2018-11-02 08:31 | NURSING ---
wound photo: sacrum
--- NOTE | 2018-11-02 09:35 | CASEMGMT ---
Pt is refusing SNF at this time but does agree to [facility] and states no preference. Call to Krysten at [facility] and she states that they can take pt at this time for RN, PT/OT. Order in [employer] at this time. Berry MUÑOZ CM
--- NOTE | 2018-11-02 09:38 | CASEMGMT ---
ELIAS spoke with patient and she does not want to go to TCU. She wants to go home. Therapy spoke with ELIAS yesterday and said patient has a good set up at home. Patient would like home health and RN CONRAD is setting this up. Plan: d/c to home with [facility] Ashwini BONILLA MSW
--- NOTE | 2018-11-02 10:15 | PCM.DC ---
- Discharge Diagnoses Current Active Problems: Current Active and Chronic Problems Sepsis (Acute) Acute metabolic encephalopathy (Acute) Debility (Chronic) MICHAELLE (acute kidney injury) (Acute) Depression (Acute) VITA (obstructive sleep apnea) (Chronic) Shortness of breath (Acute) Tachycardia (Acute) You will use the following diet at home:: Calorie/Carbohydrate Controlled (specify 1200, 1400, etc) - 1800 Your food should be the consistency of: Regular Discharge Activity: May not drive while taking narcotic pain medications. Allergies/Adverse Reactions: Allergies adhesive tape Allergy (Verified 10/30/18 17:29) blisters Influenza Virus Vaccines Allergy (Verified 10/30/18 17:29) shortness of breath/severe wheezing iron Allergy (Verified 10/30/18 17:29) from IV form chest pressure and heart palpitations Sulfa (Sulfonamide Antibiotics) Allergy (Verified 10/30/18 17:29) Shortness of breath bactrim does not work for her-per pcp paperwork meloxicam [From [employer]] Adverse Reaction (Verified 10/30/18 17:29) gi upset seasonal allergies Allergy (Uncoded 10/30/18 17:29) Other Medications to take at Discharge DiphenhydrAMINE [Benadryl] 25 mg PO BID PRN PRN 09/30/13 Furosemide [Lasix] 20 mg PO TID 09/30/13 Pantoprazole Sodium [Protonix] 40 mg PO DAILY 09/30/13 Pravastatin [Pravachol] 20 mg PO QHS 09/30/13 Albuterol Inhaler [Ventolin Hfa] 2 puff INHALATION Q4H PRN PRN 10/30/18 Baclofen 10 mg PO TID PRN PRN 10/30/18 Cholecalciferol (VIT D3) [Vitamin D3] 1,000 unit PO DAILY 10/30/18 Ciprofloxacin [Cipro] 500 mg PO BID PRN 10/30/18 Cranberry Conc/Ascorbic Acid [Cranberry Concentrate Softgel] 1 each PO BID 10/30/18 Cyanocobalamin [Vitamin B12] 1,000 mcg PO DAILY@0800 10/30/18 Diphenoxylate/Atrop [Lomotil] 1 tablet PO 4X/DAY PRN PRN 10/30/18 Duloxetine Hcl [Cymbalta] 30 mg PO DAILY 10/30/18 Fluticasone 0.05% [Flonase Nasal [place]] 2 spray NASAL DAILY 10/30/18 Gabapentin [Neurontin] 1,200 mg PO 4X/DAY 10/30/18 Guaifenesin [Mucinex] 1,200 mg PO BID PRN 10/30/18 Hydrocodone Bitart/Apap 5-325 [[place] 5/325] 1 tablet PO Q6H PRN PRN 10/30/18 Lisinopril [Zestril] 10 mg PO DAILY 10/30/18 Metformin HCl [Glucophage] 500 mg PO BID 10/30/18 Metoprolol(XL)Succ [Toprol Xl (Beta [place])] 25 mg PO DAILY 10/30/18 Multivitamins,Ther W-Minerals [Multivitamin With Minerals] 1 tablet PO 4X/DAY 10/30/18 Mupirocin [Bactroban] 1 applicatio TOPICAL BID 10/30/18 Nitrofurantoin Macrocrystals [Macrobid] 100 mg PO DAILY 10/30/18 Nystatin Powder [Mycostatin Powder] 1 applicatio TOPICAL BID PRN PRN 10/30/18 Oxybutynin Chloride [Ditropan Xl] 15 mg PO DAILY 10/30/18 Potassium (Otc) [Potassium OTC] 99 mg PO DAILY 10/30/18 Ranitidine [Zantac] 150 mg PO BID 10/30/18 Triamcinolone 0.1% Dental Pst [Kenalog Dental Paste] 1 applicatio TOPICAL 4X/DAY 10/30/18 Venlafaxine XR [Effexor Xr] 150 mg PO BID 10/30/18 Vitamin E 400 units PO BID 10/30/18 levETIRAcetam tablet [Keppra tablet] 500 mg PO QHS 10/30/18 Primary Care Physician: Noy Chakraborty MD [Primary Care Provider] - Please follow up with your Primary Care Physician in: in 5-7 days Test Results: Test results from this visit will be discussed in further detail at your follow-up appointment, if applicable. Proposed Discharge Date: 11/02/18
--- NOTE | 2018-11-02 10:18 | PCM.DC.SUM ---
Discharge Date and Diagnosis - Problem List Patient Problems: Active and Suspected Problems Sepsis (Acute) Acute metabolic encephalopathy (Acute) MICHAELLE (acute kidney injury) (Acute) Depression (Acute) Shortness of breath (Acute) Tachycardia (Acute) Date of Admission: 10/30/18 Date of Discharge: 11/02/18 - Primary Discharge Diagnosis Active and Suspected Problems Sepsis (Acute) Acute metabolic encephalopathy (Acute) MICHAELLE (acute kidney injury) (Acute) Depression (Acute) Shortness of breath (Acute) Tachycardia (Acute) - Secondary Discharge Diagnosis Chronic Problems Debility (Chronic) VITA (obstructive sleep apnea) (Chronic) Hospital Course and Treatment Imaging Results: Clinical Impression(s) from Imaging Studies Chest X-Ray 10/30/18 12:27 IMPRESSION: Cardiomegaly and CHF. Electronically Signed: Joaquin Douglass MD at 13:20 EST Tel [phone], Service support , Chest CTA 10/30/18 17:16 IMPRESSION: 1. Study is limited for evaluation of pulmonary embolus. No obvious central emboli. Small, peripheral emboli could be missed. 2. No acute process demonstrated. 3. Old granulomatous disease. Electronically Signed: Cecy Hodge MD at 21:28 EST Tel , Service support , Chest X-Ray 10/31/18 05:55 IMPRESSION: Mild interstitial edema. Electronically Signed: Cm Feliciano DO at 8:50 EST Tel , Service support , Consultations 10/31/18 19:55 Consult: Onc/Wound/janitor caretaker Routine Comment: Reason for Consult:: multiple wounds: coccyx, left gluteal fold, pannus, etc. Summary of Care Provided: Patient is a 73-year-old lady brought to the emergency department as a result of altered mental status. An assessment of acute cystitis was made. Antibiotics initiated per protocol patient admitted for further management. Patient was transferred to the intensive care unit after she developed SVT 1. Sepsis secondary to acute cystitis secondary to presence of a suprapubic catheter. Patient was started on broad-spectrum antibiotic therapy after cultures have been sent. Urine cultures only showed only mixed organisms do plan to discontinue antibiotics after 11/01/2018 2. Acute metabolic encephalopathy secondary to acute kidney injury as well as sepsis 3. Acute kidney injury suspected to be secondary to ATN from patient underlying infection baseline creatinine of 0.8 patient creatinine on admission was 1.94 which went up to 2.05 as of 10/31/2018: Kidney function improved prior to patient being discharged home 4. SVT probably prepped stated by patient underlying infection patient converted back to sinus rhythm with adenosine 5. Chronic hypoxic respiratory failure 6. Obstructive sleep apnea apparently noncompliant with CPAP 7. Morbid obesity with BMI of 55.9 8. Physical debility patient is wheelchair-bound 9. Presence of suprapubic catheter 10. Diabetes mellitus type II: Controlled; patient's oral hypoglycemics held. Placed on long acting insulin, Accu-Cheks a.c. and at bedtime and covered with sliding scale insulin 11. Hypertension-blood pressure controlled, home medications continued with dose adjustment as needed 12. Dyslipidemia-patient is on statin therapy, continued at home dose 13. Diabetic polyneuropathy 14.?? Seizure disorder patient is on Keppra indication not clear 15. DVT prophylaxis; SC heparin Patient Problems: Active and Suspected Problems Sepsis (Acute) Acute metabolic encephalopathy (Acute) MICHAELLE (acute kidney injury) (Acute) Depression (Acute) Shortness of breath (Acute) Tachycardia (Acute) Objective: GENERAL: Cooperative HEENT: Atraumatic; EYES; Anicteric, Normal Conjunctiva NECK; supple, normal thyroid, RESPIRATORY: Diminished to auscultation bilaterally, CARDIOVASCULAR: Regular S1 S2, no audible murmurs GI: soft, non-tender, normoactive bowel sounds, : No Renal angle tenderness; EXTREMITIES: , no clubbing, no cyanosis. - Physical Exam Vital Signs Temp Pulse Resp BP Pulse Ox 99.5 F H 84 15 160/87 H 95 11/02/18 10:10 11/02/18 10:10 11/02/18 10:10 11/02/18 10:10 11/02/18 10:10 Oxygen Flow Rate (L/min) 2 Oxygen Delivery Method Nasal Cannula Weight: 163.4 kg Body Mass Index (BMI) 55.4 Intake and Output for Last 24 Hours 10/31/18 11/01/18 11/02/18 23:59 23:59 23:59 Intake Total 2543 / 2543 2534.7 / 2534.7 577 / 577 Output Total 2200 / 2200 2800 / 2800 975 / 975 Balance 343 / 343 -265.3 / -265.3 -398 / -398 Microbiology Past 72 Hours 10/30/18 12:35 Blood Culture - Preliminary Blood Culture (Wb) - Anticubital Left No growth in 48 hours. 10/30/18 12:30 Blood Culture - Preliminary Blood Culture (Wb) - Arm Right No growth in 48 hours. 10/30/18 17:30 Gram Stain - Final Wound - Aerobic & Anaerobic Swabs 10/30/18 12:52 Urine Culture - Final Urine Catheter - Henry Mixed Gram Pos & Gram Neg Org Laboratory Tests Past 24 Hrs 11/02/18 11/02/18 05:10 05:10 WBC 6.6 RBC 3.44 L Hgb 9.9 L Hct 31.4 L MCV 91.3 MCH 28.8 MCHC 31.5 L RDW 16.6 H RDW Differential 53.5 H Plt Count 202 MPV 10.2 Sodium 136 Potassium 3.2 L Chloride 103 Carbon Dioxide 23.0 Anion Gap 10 BUN 23 H Creatinine 1.21 H Estim Creat Clear Calc 40.87 Est GFR (MDRD) Af Amer 56 L Est GFR (MDRD) Non-Af 47 L BUN/Creatinine Ratio 19.0 Glucose 131 H Calcium 8.5 POC Glucose 11/02/18 11/01/18 11/01/18 05:29 23:19 17:15 POC Glucose 142 H 137 H 122 H 11/01/18 12:13 POC Glucose 125 H Discharge Diet: 1800 Calorie Control Diet Discharge Activity: May not drive while taking narcotic pain medications. Home Medications: Medications to take at Discharge DiphenhydrAMINE [Benadryl] 25 mg PO BID PRN PRN 09/30/13 Furosemide [Lasix] 20 mg PO TID 09/30/13 Pantoprazole Sodium [Protonix] 40 mg PO DAILY 09/30/13 Pravastatin [Pravachol] 20 mg PO QHS 09/30/13 Albuterol Inhaler [Ventolin Hfa] 2 puff INHALATION Q4H PRN PRN 10/30/18 Baclofen 10 mg PO TID PRN PRN 10/30/18 Cholecalciferol (VIT D3) [Vitamin D3] 1,000 unit PO DAILY 10/30/18 Ciprofloxacin [Cipro] 500 mg PO BID PRN 10/30/18 Cranberry Conc/Ascorbic Acid [Cranberry Concentrate Softgel] 1 each PO BID 10/30/18 Cyanocobalamin [Vitamin B12] 1,000 mcg PO DAILY@0800 10/30/18 Diphenoxylate/Atrop [Lomotil] 1 tablet PO 4X/DAY PRN PRN 10/30/18 Duloxetine Hcl [Cymbalta] 30 mg PO DAILY 10/30/18 Fluticasone 0.05% [Flonase Nasal [place]] 2 spray NASAL DAILY 10/30/18 Gabapentin [Neurontin] 1,200 mg PO 4X/DAY 10/30/18 Guaifenesin [Mucinex] 1,200 mg PO BID PRN 10/30/18 Hydrocodone Bitart/Apap 5-325 [[place] 5/325] 1 tablet PO Q6H PRN PRN 10/30/18 Lisinopril [Zestril] 10 mg PO DAILY 10/30/18 Metformin HCl [Glucophage] 500 mg PO BID 10/30/18 Metoprolol(XL)Succ [Toprol Xl (Beta [place])] 25 mg PO DAILY 10/30/18 Multivitamins,Ther W-Minerals [Multivitamin With Minerals] 1 tablet PO 4X/DAY 10/30/18 Mupirocin [Bactroban] 1 applicatio TOPICAL BID 10/30/18 Nitrofurantoin Macrocrystals [Macrobid] 100 mg PO DAILY 10/30/18 Nystatin Powder [Mycostatin Powder] 1 applicatio TOPICAL BID PRN PRN 10/30/18 Oxybutynin Chloride [Ditropan Xl] 15 mg PO DAILY 10/30/18 Potassium (Otc) [Potassium OTC] 99 mg PO DAILY 10/30/18 Ranitidine [Zantac] 150 mg PO BID 10/30/18 Triamcinolone 0.1% Dental Pst [Kenalog Dental Paste] 1 applicatio TOPICAL 4X/DAY 10/30/18 Venlafaxine XR [Effexor Xr] 150 mg PO BID 10/30/18 Vitamin E 400 units PO BID 10/30/18 levETIRAcetam tablet [Keppra tablet] 500 mg PO QHS 10/30/18 Primary Care Physician: Noy Chakraborty MD [Primary Care Provider] - Please follow up with your Primary Care Physician in: in 5-7 days Disposition: Home with Home Health Minutes spent on discharge:: 40 Patient Condition:: Stable Medical Necessity - Tobacco Use Smoking Status: Never smoker Meaningful Use Info Meaningful Use Diagnoses (Choose all that apply): None applicable Code Visit Inpatient E&M: 63118 Disch Hosp
[2018-11-02] MEDS: DULoxetine Hcl 30 MG Capsule PO (10:20)
[2018-11-02] MEDS: Fluticasone 0.05% 1 SPRAY NASAL.SRY 2 SPRAY NASAL (10:21)
--- NOTE | 2018-11-02 10:21 | DS.PCM_ITS ---
Discharge Date and Diagnosis - Problem List Patient Problems: Active and Suspected Problems Sepsis (Acute) Acute metabolic encephalopathy (Acute) MICHAELLE (acute kidney injury) (Acute) Depression (Acute) Shortness of breath (Acute) Tachycardia (Acute) Date of Admission: 10/30/18 Date of Discharge: 11/02/18 - Primary Discharge Diagnosis Active and Suspected Problems Sepsis (Acute) Acute metabolic encephalopathy (Acute) MICHAELLE (acute kidney injury) (Acute) Depression (Acute) Shortness of breath (Acute) Tachycardia (Acute) - Secondary Discharge Diagnosis Chronic Problems Debility (Chronic) VITA (obstructive sleep apnea) (Chronic) Hospital Course and Treatment Imaging Results: Clinical Impression(s) from Imaging Studies Chest X-Ray 10/30/18 12:27 IMPRESSION: Cardiomegaly and CHF. Electronically Signed: Joaquin Douglass MD at 13:20 EST Tel [phone], Service support , Chest CTA 10/30/18 17:16 IMPRESSION: 1. Study is limited for evaluation of pulmonary embolus. No obvious central emboli. Small, peripheral emboli could be missed. 2. No acute process demonstrated. 3. Old granulomatous disease. Electronically Signed: Cecy Hodge MD at 21:28 EST Tel , Service support , Chest X-Ray 10/31/18 05:55 IMPRESSION: Mild interstitial edema. Electronically Signed: Cm Feliciano DO at 8:50 EST Tel , Service support , Consultations 10/31/18 19:55 Consult: Onc/Wound/lease administrator Routine Comment: Reason for Consult:: multiple wounds: coccyx, left gluteal fold, pannus, etc. Summary of Care Provided: Patient is a 73-year-old lady brought to the emergency department as a result of altered mental status. An assessment of acute cystitis was made. Antibiotics initiated per protocol patient admitted for further management. Patient was transferred to the intensive care unit after she developed SVT 1. Sepsis secondary to acute cystitis secondary to presence of a suprapubic catheter. Patient was started on broad-spectrum antibiotic therapy after cultures have been sent. Urine cultures only showed only mixed organisms do plan to discontinue antibiotics after 11/01/2018 2. Acute metabolic encephalopathy secondary to acute kidney injury as well as sepsis 3. Acute kidney injury suspected to be secondary to ATN from patient underlying infection baseline creatinine of 0.8 patient creatinine on admission was 1.94 which went up to 2.05 as of 10/31/2018: Kidney function improved prior to patient being discharged home 4. SVT probably prepped stated by patient underlying infection patient converted back to sinus rhythm with adenosine 5. Chronic hypoxic respiratory failure 6. Obstructive sleep apnea apparently noncompliant with CPAP 7. Morbid obesity with BMI of 55.9 8. Physical debility patient is wheelchair-bound 9. Presence of suprapubic catheter 10. Diabetes mellitus type II: Controlled; patient's oral hypoglycemics held. Placed on long acting insulin, Accu-Cheks a.c. and at bedtime and covered with sliding scale insulin 11. Hypertension-blood pressure controlled, home medications continued with do se adjustment as needed 12. Dyslipidemia-patient is on statin therapy, continued at home dose 13. Diabetic polyneuropathy 14.?? Seizure disorder patient is on Keppra indication not clear 15. DVT prophylaxis; SC heparin Patient Problems: Active and Suspected Problems Sepsis (Acute) Acute metabolic encephalopathy (Acute) MICHAELLE (acute kidney injury) (Acute) Depression (Acute) Shortness of breath (Acute) Tachycardia (Acute) Objective: GENERAL: Cooperative HEENT: Atraumatic; EYES; Anicteric, Normal Conjunctiva NECK; supple, normal thyroid, RESPIRATORY: Diminished to auscultation bilaterally, CARDIOVASCULAR: Regular S1 S2, no audible murmurs GI: soft, non-tender, normoactive bowel sounds, : No Renal angle tenderness; EXTREMITIES: , no clubbing, no cyanosis. - Physical Exam Vital Signs Temp Pulse Resp BP Pulse Ox 99.5 F H 84 15 160/87 H 95 11/02/18 10:10 11/02/18 10:10 11/02/18 10:10 11/02/18 10:10 11/02/18 10:10 Oxygen Flow Rate (L/min) 2 Oxygen Delivery Method Nasal Cannula Weight: 163.4 kg Body Mass Index (BMI) 55.4 Intake and Output for Last 24 Hours 10/31/18 11/01/18 11/02/18 23:59 23:59 23:59 Intake Total 2543 / 2543 2534.7 / 2534.7 577 / 577 Output Total 2200 / 2200 2800 / 2800 975 / 975 Balance 343 / 343 -265.3 / -265.3 -398 / -398 Microbiology Past 72 Hours 10/30/18 12:35 Blood Culture - Preliminary Blood Culture (Wb) - Anticubital Left No growth in 48 hours. 10/30/18 12:30 Blood Culture - Preliminary Blood Culture (Wb) - Arm Right No growth in 48 hours. 10/30/18 17:30 Gram Stain - Final Wound - Aerobic & Anaerobic Swabs 10/30/18 12:52 Urine Culture - Final Urine Catheter - Henry Mixed Gram Pos & Gram Neg Org Laboratory Tests Past 24 Hrs 11/02/18 11/02/18 05:10 05:10 WBC 6.6 RBC 3.44 L Hgb 9.9 L Hct 31.4 L MCV 91.3 MCH 28.8 MCHC 31.5 L RDW 16.6 H RDW Differential 53.5 H Plt Count 202 MPV 10.2 Sodium 136 Potassium 3.2 L Chloride 103 Carbon Dioxide 23.0 Anion Gap 10 BUN 23 H Creatinine 1.21 H Estim Creat Clear Calc 40.87 Est GFR (MDRD) Af Amer 56 L Est GFR (MDRD) Non-Af 47 L BUN/Creatinine Ratio 19.0 Glucose 131 H Calcium 8.5 POC Glucose 11/02/18 11/01/18 11/01/18 05:29 23:19 17:15 POC Glucose 142 H 137 H 122 H 11/01/18 12:13 POC Glucose 125 H Discharge Diet: 1800 Calorie Control Diet Discharge Activity: May not drive while taking narcotic pain medications. Home Medications: Medications to take at Discharge DiphenhydrAMINE [Benadryl] 25 mg PO BID PRN PRN 09/30/13 Furosemide [Lasix] 20 mg PO TID 09/30/13 Pantoprazole Sodium [Protonix] 40 mg PO DAILY 09/30/13 Pravastatin [Pravachol] 20 mg PO QHS 09/30/13 Albuterol Inhaler [Ventolin Hfa] 2 puff INHALATION Q4H PRN PRN 10/30/18 Baclofen 10 mg PO TID PRN PRN 10/30/18 Cholecalciferol (VIT D3) [Vitamin D3] 1,000 unit PO DAILY 10/30/18 Ciprofloxacin [Cipro] 500 mg PO BID PRN 10/30/18 Cranberry Conc/Ascorbic Acid [Cranberry Concentrate Softgel] 1 each PO BID 10/30/18 Cyanocobalamin [Vitamin B12] 1,000 mcg PO DAILY@0800 10/30/18 Diphenoxylate/Atrop [Lomotil] 1 tablet PO 4X/DAY PRN PRN 10/30/18 Duloxetine Hcl [Cymbalta] 30 mg PO DAILY 10/30/18 Fluticasone 0.05% [Flonase Nasal [place]] 2 spray NASAL DAILY 10/30/18 Gabapentin [Neurontin] 1,200 mg PO 4X/DAY 10/30/18 Guaifenesin [Mucinex] 1,200 mg PO BID PRN 10/30/18 Hydrocodone Bitart/Apap 5-325 [[place] 5/325] 1 tablet PO Q6H PRN PRN 10/30/18 Lisinopril [Zestril] 10 mg PO DAILY 10/30/18 Metformin HCl [Glucophage] 500 mg PO BID 10/30/18 Metoprolol(XL)Succ [Toprol Xl (Beta [place])] 25 mg PO DAILY 10/30/18 Multivitamins,Ther W-Minerals [Multivitamin With Minerals] 1 tablet PO 4X/DAY 10/30/18 Mupirocin [Bactroban] 1 applicatio TOPICAL BID 10/30/18 Nitrofurantoin Macrocrystals [Macrobid] 100 mg PO DAILY 10/30/18 Nystatin Powder [Mycostatin Powder] 1 applicatio TOPICAL BID PRN PRN 10/30/18 Oxybutynin Chloride [Ditropan Xl] 15 mg PO DAILY 10/30/18 Potassium (Otc) [Potassium OTC] 99 mg PO DAILY 10/30/18 Ranitidine [Zantac] 150 mg PO BID 10/30/18 Triamcinolone 0.1% Dental Pst [Kenalog Dental Paste] 1 applicatio TOPICAL 4X/DAY 10/30/18 Venlafaxine XR [Effexor Xr] 150 mg PO BID 10/30/18 Vitamin E 400 units PO BID 10/30/18 levETIRAcetam tablet [Keppra tablet] 500 mg PO QHS 10/30/18 Primary Care Physician: Noy Chakraborty MD [Primary Care Provider] - Please follow up with your Primary Care Physician in: in 5-7 days Disposition: Home with Home Health Minutes spent on discharge:: 40 Patient Condition:: Stable Medical Necessity - Tobacco Use Smoking Status: Never smoker Meaningful Use Info Meaningful Use Diagnoses (Choose all that apply): None applicable Code Visit Inpatient E&M: 41789 Disch Hosp
[2018-11-02] MEDS: Cyanocobalamin 500 MCG Tablet 1000 MCG PO (10:27)
[2018-11-02] MEDS: Baclofen 10 MG Tablet PO (10:28)
[2018-11-02] MEDS: Furosemide 20 MG Tablet PO (10:28)
[2018-11-02] MEDS: Pantoprazole Sodium 40 MG Tablet PO (11:10)
[2018-11-02] MEDS: Lisinopril 10 MG Tablet PO (11:10)
[2018-11-02] MEDS: Metoprolol(XL)Succ 25 MG Tablet PO (11:10)
[2018-11-02] MEDS: Nystatin Powder 15gm Bottle 1 APPLIC TOPICAL (11:12)
--- NOTE | 2018-11-05 13:20 | CASEMGMT ---
TONI MARTINES Discharge Follow-up Phone Call: YAMIL: Guille Strata: 3 Call Date: 11/05/18 Discharge Date: 11/02/18 Time of Call: 1320 Duration: 3 min Admitting Diagnosis: Respiratory failure, hypoxia chf, sepsis, uti TONI MARTINES completed follow-up phone after recent hospitalization. Patient states she is doing, tired but doing ok. [facility] to see patient Monday. Patient had no questions regarding discharge instructions. Patient has follow-up appt for .
--- OUTSIDE RECORDS SUMMARY | 2019-02-01 00:01 | XMS RPT_ITS ---
:1945 Author Organization OHIP Support Name Relationship Address Phone Palomo, Esperanza Unavailable [address] + [place] [address] R Unavailable Unavailable Unavailable Palomo, Esperanza Unavailable [address] + [place] [address] R Unavailable Unavailable Unavailable PALOMO, ESPERANZA Unavailable [address] + [place] [address] R Unavailable Unavailable Unavailable PALOMO, ESPERANZA Unavailable [address] + [place] [address] R Unavailable Unavailable Unavailable PALOMO, ESPERANZA Unavailable [address] + [place] [address] R Unavailable Unavailable Unavailable PALOMO, ESPERANZA Unavailable [address] + [place] [address] R Unavailable Unavailable Unavailable Palomo, Esperanza Unavailable [address] + [place] [address] R Unavailable Unavailable Unavailable PALOMO, ESPERANZA Unavailable [address] + [place] [address] R Unavailable Unavailable Unavailable PALOMO, ESPERANZA Unavailable [address] + [place] [address] R Unavailable Unavailable Unavailable PALOMO, ESPERANZA Unavailable [address] + [place] [address] R Unavailable Unavailable Unavailable PALOMO, ESPERANZA Unavailable [address] + [place] [address] R Unavailable Unavailable Unavailable PALOMO, ESPERANZA Unavailable [address] + [place] [address] R Unavailable Unavailable Unavailable PALOMO, ESPERANZA Unavailable [address] + [place] [address] R Unavailable Unavailable Unavailable PALOMO ESPERANZA Unavailable [address] + [place] [address] R Unavailable Unavailable Unavailable PALOMO ESPERANZA Unavailable [address] + [place] [address] R Unavailable Unavailable Unavailable PALOMO, ESPERANZA Unavailable [address] + [place] [address] R Unavailable Unavailable Unavailable Palomo, Esperanza Unavailable [address] + [place] [address] R Unavailable Unavailable Unavailable PALOMO, ESPERANZA Unavailable [address] + [place] [address] R Unavailable Unavailable Unavailable PALOMO, ESPERANZA Unavailable [address] [phone] [place] [address] R Unavailable Unavailable Unavailable Care Team Providers Name Role Phone HECTOR CROCKER (PA) Attending Unavailable HECTOR CROCKER (PA) Attending Unavailable GANTA, GERALDINE Referring Unavailable GANTA, GERALDINE Attending Unavailable GANTA, GERALDINE Referring Unavailable HECTOR CROCKER (PA) Attending Unavailable GANTA, GERALDINE Referring Unavailable HECTOR CROCKER (PA) Attending Unavailable GANTA, GERALDINE Referring Unavailable GANTA, GERALDINE Attending Unavailable GANTA, GERALDINE Referring Unavailable GANTA, GERALDINE Referring Unavailable HECTOR CROCKER (PA) Attending Unavailable GANTA, GERALDINE Referring Unavailable GANTA, GERALDINE Referring Unavailable JUSTIN WOODSON (PA) Attending Unavailable JUSTIN WOODSON (PA) Referring Unavailable CROCKERHECTOR GOODEN (PA) Attending Unavailable Ganta, Geraldine Primary Care Unavailable Tereletsky, Colby Admitting Unavailable Tereletsky, Colby Referring Unavailable Abad Barton Attending Unavailable Ilan Escobar D.O. Consulting Unavailable Jose Galo Consulting Unavailable Tereletsky, Colby Admitting Unavailable Tereletsky, Colby Referring Unavailable Ganta, Geraldine Primary Care Unavailable Jose Galo Consulting Unavailable MirandaeletskyColby Attending Unavailable Mirandaeletsky, Colby Consulting Unavailable Mirandaeletsky, Colby Admitting Unavailable Abad Barton Attending Unavailable Tereletsky, Colby Referring Unavailable Ganta, Geraldine Primary Care Unavailable Jose Galo Consulting Unavailable Ilan Escobar D.O. Consulting Unavailable Abad Barton Consulting Unavailable Tereletsky, Colby Admitting Unavailable Jose Galo Attending Unavailable Tereletsky, Colby Referring Unavailable [facility] Care Unavailable Ilan Escobar D.O. Consulting Unavailable Jose Galo Consulting Unavailable Abad Barton Consulting Unavailable Tereletsky, Colby Admitting Unavailable Ilan Escobar D.O. Attending Unavailable Tereletsky, Colby Referring Unavailable [facility] Unavailable Ilan Escobar D.O. Consulting Unavailable Jose Galo Consulting Unavailable Abad Barton Consulting Unavailable Tereletsky, Colby Admitting Unavailable KittoAbad gore Attending Unavailable Tereletsky, Colby Referring Unavailable [facility] Unavailable Ilan Escobar D.O. Consulting Unavailable Jose Galo Consulting Unavailable Abad Barton Consulting Unavailable Mirandaeletsky, Colby Admitting Unavailable KitAbad guerra Attending Unavailable Tereletsky, Colby Referring Unavailable [facility] Care Unavailable Ilan Escobar D.O. Consulting Unavailable Jose Galo Consulting Unavailable Abad Barton Consulting Unavailable [facility] Care Unavailable Agyepong, Kyree Admitting Unavailable Sementi, Juju Attending Unavailable Gagan, Luis Consulting Unavailable Agyepong, Kyree Admitting Unavailable Agyepong, Kyree Attending Unavailable [facility] Unavailable Agyepong, Kyree Consulting Unavailable Agyepong, Kyree Admitting Unavailable Sementi, Juju Attending Unavailable [facility] Care Unavailable Gagan, Lius Consulting Unavailable Sementi, Juju Consulting Unavailable Agyepong, Kyree Admitting Unavailable Sementi, Juju Attending Unavailable [facility] Care Unavailable Gagan, Luis Consulting Unavailable Sementi, Juju Consulting Unavailable Agyepong, Kyree Admitting Unavailable Sementi, Juju Attending Unavailable [facility] Care Unavailable Gagan, Luis Consulting Unavailable Sementi, Juju Consulting Unavailable Agyepong, Kyree Admitting Unavailable SHAWNA SimmonsC Attending Unavailable [facility] Unavailable Gagan, Luis Consulting Unavailable Sementi, Juju Consulting Unavailable Pablo Aquino Attending Unavailable Tereletsky, Colby Referring Unavailable Aura Torres OPTOMETRY TEACHER-C Attending Unavailable Ganta, Geraldine Primary Care Unavailable Brian, Aura OPTOMETRY TEACHER-C Referring Unavailable Brian, Shirley OPTOMETRY TEACHER-C Attending Unavailable Brian, Shirley OPTOMETRY TEACHER-C Referring Unavailable Geraldine Valencia Primary Care Unavailable Jacky Correa Attending Unavailable Homero Aquinoril Attending Unavailable Vickie Muse Referring Unavailable Jacky Correa Attending Unavailable PROBLEMS PROBLEMS DATE TYPE CONDITION / CODE ATTENDING STATUS SOURCE 11/08/2018 Active Anemia, unspecified / NA Active [facility] D64.9(ICD-10) [facility] [place] Repository 11/08/2018 Active Sepsis, unspecified NA Active [facility] organism / Clinic Main A41.9(ICD-10) [place] Rep[facility] 11/08/2018 Active Encounter for NA Active [facility] screening for lipoid [facility] Main disorders / [place] Z13.220(ICD-10) Repository 11/08/2018 Active Encounter for NA Active [facility] screening for [facility] Main cardiovascular [place] disorders / Repository Z13.6(ICD-10) 11/08/2018 Active Acute kidney failure, NA Active [facility] unspecified / Clinic Main N17.9(ICD-10) [place] Rep[facility] 11/20/2018 Unknown R94.31 - Abnormal Kenia, Pablo Active [facility] [ECG] [EKG] / Hospital R94.31(ICD-10) Repository 08/20/2018 Active Encounter for NA Active [facility] mammogram [facility] Main for malignant neoplasm [place] of breast / Repository Z12.31(ICD-10) 04/13/2018 Unknown M25.512 - Pain in left Aura Torres Active [facility] shoulder / OPTOMETRY TEACH[facility] M25.512(ICD-10) Hospital Repository 10/24/2016 Active Type 2 diabetes NA Active [facility] mellitus without Clinic Main complications / [place] E11.9(ICD-10) Repository 03/23/2018 Active Other oysterman NA Active [facility] (current) drug therapy Clinic Main / Z79.899(ICD-10) [place] Repository 12/07/2017 Active Unknown / UNK(Unknown) NA Active [facility] [place] Repository PROCEDURES PROCEDURES No Procedure Records FoundRESULTS RESULTS DISCHARGE SUMMARY Observed: 12/02/2018 Status: F Source: [place] 6:53 PM [facility] REPOSITORY [facility] Medical Records Department [address] [place] [address] [place] [address] Discharge Summary 11/14/18 1315 MR#: [id number] Acct: [id number] Name: ISELA CAMARENA Rep #: [id number] : 1945 73 From: Brenda Triana DO PCP: Geraldine Valencia MD Status: DIS IN Y Location: [address] ADDENDUM by DEDRICK Ivy on 11/15/18 at 1129 Code Visit Discharge delayed due to patient deciding on detention facility at discharge. Patient was admitted 11/11/2018 due to generalized fatigue with fall at home. She has a past medical history of depression, morbid obesity, CHF, anxiety, asthma, type 2 diabetes mellitus, chronic suprapubic catheter, hypertension. Patient was found to have severe sepsis with unclear etiology. Initially thought to have complicated UTI. She was treated with IV Rocephin. Urine culture grew Pseudomonas which was resistant. Infectious disease evaluated patient and did not feel further antibiotics were necessary. Do not suspect active UTI infection. Suspect patient is colonized due to chronic suprapubic catheter. Blood cultures negative. Respiratory panel and influenza negative. Chest x-ray unremarkable. Unclear etiology for sepsis/fever. Patient was noted to have acute kidney injury secondary to dehydration which resolved with IV fluids. Toxic encephalopathy suspected secondary to acute renal failure. Mental status now at baseline. Patient was recommended to discontinue taking ciprofloxacin as needed at home. Patient was discharged to SNF for further PT/OT. She previously had 24-hour caregiver at home. She may require long-term SNF. Discharge date 11/15/2018. General: Alert, Oriented x3, Cooperative HEENT: Atraumatic, PERRLA, EOMI, Normocephalic Neck: Supple, No JVD, Negative Carotid Bruits Lungs: Clear to auscultation, Normal air movement Cardiovascular: Normal rate, normal rhythm, no murmur Abdomen: Bowel Sounds Present, Soft, Non Tender, obese, suprapubic catheter intact Extremities: No edema, Capillary Refill Less than 3 Seconds Skin: Chronic decubitus ulcer coccyx, dressing intact Musculoskeletal: No Tenderness to Palpation of Joints or Extremities Neurological: Cranial nerves II-XII grossly intact Psych/Mental Status: Normal Affect, Appropriate Patient seen and examined prior to discharge. Physical assessment as noted above. Patient is stable for discharge with follow up recommendations as noted above. This patient was seen by DEDRICK Simmons under the supervision of Dr. Triana. 11/15/18 1129 <Electronically signed by Latonya TSE> Date Latonya Ivy cc: DEDRICK Ivy; Juju Triana; Geraldine Valencia MD * Signed Addendum entered and electronically signed by DEDRICK Simmons 11/15/18 11:29: Code Visit Discharge delayed due to patient deciding on detention facility at discharge. Patient was admitted 11/11/2018 due to generalized fatigue with fall at home. She has a past medical history of depression, morbid obesity, CHF, anxiety, asthma, type 2 diabetes mellitus, chronic suprapubic catheter, hypertension. Patient was found to have severe sepsis with unclear etiology. Initially thought to have complicated UTI. She was treated with IV Rocephin. Urine culture grew Pseudomonas which was resistant. Infectious disease evaluated patient and did not feel further antibiotics were necessary. Do not suspect active UTI infection. Suspect patient is colonized due to chronic suprapubic catheter. Blood cultures negative. Respiratory panel and influenza negative. Chest x-ray unremarkable. Unclear etiology for sepsis/fever. Patient was noted to have acute kidney injury secondary to dehydration which resolved with IV fluids. Toxic encephalopathy suspected secondary to acute renal failure. Mental status now at baseline. Patient was recommended to discontinue taking ciprofloxacin as needed at home. Patient was discharged to SNF for further PT/OT. She previously had 24-hour caregiver at home. She may require long-term SNF. Discharge date 11/15/2018. General: Alert, Oriented x3, Cooperative HEENT: Atraumatic, PERRLA, EOMI, Normocephalic Neck: Supple, No JVD, Negative Carotid Bruits Lungs: Clear to auscultation, Normal air movement Cardiovascular: Normal rate, normal rhythm, no murmur Abdomen: Bowel Sounds Present, Soft, Non Tender, obese, suprapubic catheter intact Extremities: No edema, Capillary Refill Less than 3 Seconds Skin: Chronic decubitus ulcer coccyx, dressing intact Musculoskeletal: No Tenderness to Palpation of Joints or Extremities Neurological: Cranial nerves II-XII grossly intact Psych/Mental Status: Normal Affect, Appropriate Patient seen and examined prior to discharge. Physical assessment as noted above. Patient is stable for discharge with follow up recommendations as noted above. This patient was seen by DEDRICK Simmons under the supervision of Dr. Triana. Original Note: Discharge Date and Diagnosis - Problem List Patient Problems: Active and Suspected Problems Dehydration (Acute) Date of Admission: 11/11/18 Date of Discharge: 11/14/18 - Primary Discharge Diagnosis Active and Suspected Problems severe sepsis - ruled out Complicated Cystitis - ruled out Acute kidney injury secondary to dehydration Dehydration (Acute) Hyponatremia Metabolic encephalopathy - Secondary Discharge Diagnosis Chronic Problems Debility (Chronic) Depression (Chronic) VITA (obstructive sleep apnea) (Chronic) on BiPAP Normochromic normocytic anemia Morbid obesity Diabetes mellitus type 2 Hospital Course and Treatment Imaging Results: Clinical Impression(s) from Imaging Studies Chest X-Ray 11/11/18 19:00 IMPRESSION: Stable appearance of the chest with no new or acute finding. Electronically Signed: Dejon Luna MD at 19:30 EST , Service support , Microbiology 11/13/18 16:10 Mucosa - Nose Respiratory Panel (PCR) - Final 11/11/18 19:57 Urine Catheter - Henry Urine Culture - Final Pseudomonas aeroginosa 11/11/18 23:45 Blood Culture (Wb) - Anticubital Left Blood Culture - Preliminary No growth in 48 hours. 11/11/18 18:35 Blood Culture (Wb) - Left Wrist Blood Culture - Preliminary No growth in 48 hours. 11/13/18 16:10 Mucosa - Nose Influenza Types A,B Direct FA (WENDI) - Final Laboratory Results - last 24 hr Lactic Acid 1.0 POC Glucose 145 H 169 H Lactic Acid POC Glucose 179 H 116 H Consultations 11/11/18 21:36 Consult: Onc/Wound/racket stringer Routine Comment: Reason for Consult:: pressure ulcers Dr. Colby Farah-infectious diseases Operations: None Procedures: None Summary of Care Provided: The patient is a 73-year-old female with a past medical history of depression, morbid obesity, congestive heart failure, anxiety, asthma, diabetes mellitus, chronic suprapubic catheter and HTN who presented to the ED at [facility] on 11/11/2018 with complaints of generalized fatigue and a fall at home. She was recently an inpatient at [facility] admitted on 10/30/2018 for sepsis secondary to acute complicated cystitis and discharged on 11/02/2018. Urine culture at that time grew mixed gram positives and negatives. She was not sent home on an antibiotic. Vital signs at presentation to the emergency room were temperature 100 F, pulse rate 102, blood pressure 113/72, respiratory rate 18 and she was 93% saturated on room air. Lab at admission showed an elevated white blood cell count at 17.3 with a left shift. Hemoglobin was 11.2 and was 9.9 at discharge from the hospital on 11/02/2018. Creatinine was elevated at 1.63, up from 1.21 at discharge from the hospital on 11/02/2018. In May of this year her creatinine was 0.8. Chest x-ray showed no infiltrates, pleural effusions or significant pulmonary vascular congestion. UA showed greater than 100 WBCs per high-power field and was nitrite positive. She was admitted to the hospital with a dx of severe sepsis due to complicated UTI. She was started on Rocephin. On PE at admission she was confused and very slow to answer questions. We felt she had a metabolic encephalopathy. She was hydrated and the next day she was much improved, alert and oriented x 3 and back to baseline. Fever and leukocytosis resolved within 48 hours. The urine culture grew pseudomonas aeruginosa which was resistant to aminoglycosides, cefepime, ceftazidime, fluoroquinolones and meropenem. She improved and the leukocytosis and fever resolved while on an antibiotic that did not cover the bacteria in the urine. She was seen in consultation by Dr. Farah on 11/14/2018 and he felt that she did not have cystitis and recommended discontinuation of Rocephin. I recommended to her that she did not take ciprofloxacin p.o. as needed at home. Respiratory panel and Influenza swab were both negative. The etiology of the fever at admission is unknown. GENERAL: oriented X 3, Cooperative, NAD, very alert today and promptly answers questions ORAL: dry mucosa, no mucosal lesions NECK: No JVD, supple, trachea midline LUNGS: CTA, symmetric chest expansion, breath sounds are diminished throughout, no rales, no wheezes, no conversational dyspnea and no accessory muscle use HEART: RRR, Normal S1 and S2, no rub, no gallop ABDOMEN: soft, NT, ND, BS present, no guarding with palpation, obese EXTREMITIES: edema, no cyanosis, no calf tenderness SKIN: No rashes, no breakdown NEUROLOGIC: no focal neurologic deficits PSYCH: appropriate, normal affect, pleasant This note was generated with [employer] dictation software. It may contain incorrect words, spelling, and punctuation that were not noted in checking the note before signing. Patient Problems: Active and Suspected Problems Dehydration (Acute) - Physical Exam Vital Signs Temp Pulse Resp BP Pulse Ox 98.2 F 86 16 135/67 H 97 11/14/18 09:12 11/14/18 11:00 11/14/18 09:12 11/14/18 09:36 11/14/18 09:12 Oxygen Flow Rate (L/min) 2 Oxygen Delivery Method Nasal Cannula Weight: 352 lb 11.834 oz Body Mass Index (BMI) 56.9 Intake and Output for Last 24 Hours Intake Total 3041 / 3041 2615 / 2615 1100 / 1100 Output Total 3625 / 3625 3300 / 3300 2750 / 2750 Balance -584 / -584 -685 / -685 -1650 / -1650 Microbiology Past 72 Hours 11/13/18 16:10 Respiratory Panel (PCR) - Final Mucosa - Nose Laboratory Tests Past 24 Hrs Lactic Acid 1.0 POC Glucose POC Glucose 116 H 179 H 169 H POC Glucose 145 H Discharge Activity: Return to Normal Activity Home Medications: Medications to take at Discharge DiphenhydrAMINE [Benadryl] 25 mg PO BID PRN PRN 09/30/13 Furosemide [Lasix] 20 mg PO TID 09/30/13 Pantoprazole Sodium [Protonix] 40 mg PO DAILY 09/30/13 Pravastatin [Pravachol] 20 mg PO QHS 09/30/13 Albuterol Inhaler [Ventolin Hfa] 2 puff INHALATION Q4H PRN PRN 10/30/18 Baclofen 10 mg PO TID PRN PRN 10/30/18 Cholecalciferol (VIT D3) [Vitamin D3] 1,000 unit PO DAILY 10/30/18 Cranberry Conc/Ascorbic Acid [Cranberry Concentrate Softgel] 1 each PO BID 10/30/18 Cyanocobalamin [Vitamin B12] 1,000 mcg PO DAILY@0800 10/30/18 Diphenoxylate/Atrop [Lomotil] 1 tablet PO 4X/DAY PRN PRN 10/30/18 Duloxetine Hcl [Cymbalta] 30 mg PO DAILY 10/30/18 Fluticasone 0.05% [Flonase Nasal [place]] 2 spray NASAL DAILY 10/30/18 Gabapentin [Neurontin] 600 mg PO TID 10/30/18 Guaifenesin [Mucinex] 1,200 mg PO BID PRN 10/30/18 Hydrocodone Bitart/Apap 5-325 [[place] 5/325] 1 tablet PO Q6H PRN PRN 10/30/18 Lisinopril [Zestril] 10 mg PO DAILY 10/30/18 Metformin HCl [Glucophage] 500 mg PO BID 10/30/18 Metoprolol(XL)Succ [Toprol Xl (Beta Roopa)] 25 mg PO DAILY 10/30/18 Multivitamins,Ther W-Minerals [Multivitamin With Minerals] 1 tablet PO 4X/DAY 10/30/18 Mupirocin [Bactroban] 1 applicatio TOPICAL BID 10/30/18 Nitrofurantoin Macrocrystals [Macrobid] 100 mg PO DAILY 10/30/18 Nystatin Powder [Mycostatin Powder] 1 applicatio TOPICAL BID PRN PRN 10/30/18 Oxybutynin Chloride [Ditropan Xl] 15 mg PO DAILY 10/30/18 Potassium (Otc) [Potassium OTC] 99 mg PO DAILY 10/30/18 Ranitidine [Zantac] 150 mg PO BID 10/30/18 Triamcinolone 0.1% Dental Pst [Kenalog Dental Paste] 1 applicatio TOPICAL 4X/DAY 10/30/18 Venlafaxine XR [Effexor Xr] 150 mg PO BID 10/30/18 Vitamin E 400 units PO BID 10/30/18 levETIRAcetam tablet [Keppra tablet] 500 mg PO QHS 10/30/18 Primary Care Physician: Geraldine Valencia MD [Primary Care Provider] - Please follow up with your Primary Care Physician in: 1-2 weeks Disposition: Home Minutes spent on discharge:: 38 Patient Condition:: Good Medical Necessity - Tobacco Use Smoking Status: Never smoker Meaningful Use Info Meaningful Use Diagnoses (Choose all that apply): None applicable Code Visit Inpatient E AND M: 20986 Disch Hosp 11/14/18 1331 <Electronically signed by Brenda Triana DO> Date Brenda Staci Triana DO Cosigner Signature (if applicable): Date CC: DEDRICK Ivy; Juju Triana; Geraldine Valencia MD Signed PROGRESS Observed: 11/29/2018 Status: COMPLETED Source: [place] 11:44 AM [facility] HNO ID: [id number] Author: Diane Nielsen Ma Service: (none) Author Type: (none) Type: Progress Notes Filed: 11/29/2018 11:49 AM Note Text: In the supine position, the old suprapubic tube was removed with no difficulty. The area was prepped with betadine, and a new 24 Fr Henry was inserted through the stoma site into the bladder. The balloon was inflated with 30 cc's of sterile saline. The catheter irrigated well. The pt tolerated the procedure well without complications. Some discomfort upon insertion but that went away before she left the office. PROGRESS Observed: 11/29/2018 Status: COMPLETED Source: [place] 11:43 AM [facility] REPOSIT[facility] HNO ID: [id number] Author: Hector Crocker (Pa) Service: (none) Author Type: Physician Shift Mgr Type: Progress Notes Filed: 11/29/2018 11:49 AM Note Text: Suprapubic catheter change performed as ordered. A 24 bulgarian henry catheter was replaced using sterile technique without complications. Balloon inflated with 30cc of sterile saline. Patient tolerated procedure well. Irrigation preformed to insure proper placement done with good return. Patient to follow up in 1 month. Patient to call in the interim with any problems or concerns. Diane Nielsen Ma Patient was recently hospitalized for Sepsis and is in need of her SPT change as usual , the exchange went well She will be staying at [facility] until she is rehabilitated back to home. She will need Ciprofloxacin 500 mg twice per day for 3 days And also Irrigation daily for mucous build up. Rx written and given to patient to be filled by [facility] Follow up in 1 month for SPT Exchange ASHISH Murray MT, PA-C CNOV Observed: 11/29/2018 Status: COMPLETED Source: [place] 11:00 AM [facility] REPOSIT[facility] Office Visit (UROLWS) ISELA CAMARENA ([id number]) 1945 F Date Time Provider Department 11/29/18 11:00 AM HECTOR CROCKER (MELCHOR) UROLWS During your visit today, we recorded the following information about you: Temperature Pulse Blood pressure 97.6 degrees 72/minute 118/60 MELCHOR Rodríguez 11/29/2018 11:49 AM Signed Suprapubic catheter change performed as ordered. A 24 bulgarian henry catheter was replaced using sterile technique without complications. Balloon inflated with 30cc of sterile saline. Patient tolerated procedure well. Irrigation preformed to insure proper placement done with good return. Patient to follow up in 1 month. Patient to call in the interim with any problems or concerns. Diane Nielsen Ma Patient was recently hospitalized for Sepsis and is in need of her SPT change as usual , the exchange went well She will be staying at [facility] until she is rehabilitated back to home. She will need Ciprofloxacin 500 mg twice per day for 3 days And also Irrigation daily for mucous build up. Rx written and given to patient to be filled by [facility] Pharmacy Follow up in 1 month for SPT [facility] ASHISH Murray MT, JENNIFER Nielsen Ma 11/29/2018 11:49 AM Signed In the supine position, the old suprapubic tube was removed with no difficulty. The area was prepped with betadine, and a new 24 Fr Henry was inserted through the stoma site into the bladder. The balloon was inflated with 30 cc's of sterile saline. The catheter irrigated well. The pt tolerated the procedure well without complications. Some discomfort upon insertion but that went away before she left the office. Referring Provider: SELF [[id number]] Allergies As of Date: 11/29/2018 Noted Allergy Reaction IRON 03/06/2013 14 - Other: See Comments Comments: From IV form; heart palpitations, chest pressure ADHESIVE TAPE (ROSINS) 10/19/2006 Comments: Blisters INFLUENZA VIRUS VACCINES 09/04/2012 12 - Shortness of Breath Comments: severe wheezing seasonal allergies [Other] 04/17/2006 SULFA (SULFONAMIDE ANTIBIOTICS) 07/11/2005 12 - Shortness of Breath Comments: Bactrim does not work for her MOBIC (MELOXICAM) 07/20/2006 8 - GI Upset Date Reviewed: 11/29/2018 Reviewed by: Daine Nielsen Ma - Fully Assessed Reason for Visit: Hospital Follow Up [177] sp tube change [Other] Primary Visit Diagnosis:Urinary retention [R33.9] Other Visit Diagnosis:Suprapubic catheter (HCC) [Z93.59] Prescriptions as of 11/29/2018 Sig: GUAIFENESIN 200 MG TABLET Take 400 mg by mouth every 4 * ACETAMINOPHEN 325 MG CAPSULE Take 650 mg by mouth every 6 * BISACODYL 10 MG RECTAL SUPPOS* 10 mg by RECTAL route once da* DULOXETINE 30 MG CAPSULE,AMIRA* Take 30 mg by mouth once eulalio* RANITIDINE 150 MG TABLET Take 1 tablet by mouth twice * CATHETER 24 FR 24 FR SILVER henry catheter w* SODIUM CHLORIDE 0.9 % SOLUTION To use for catheter irrigatio* COMPOUNDED PRESCRIPTION Split Gauze pads 4x4 Dx: U* COMPOUNDED PRESCRIPTION Suprapubic Irrigating kit * COMPOUNDED PRESCRIPTION Urinary night bags SADIQ KEND* FUROSEMIDE 20 MG TABLET Take 1 tablet by mouth three * LISINOPRIL 10 MG TABLET Take 1 tablet by mouth once d* HYDROCODONE 5 MG-ACETAMINOPHE* Take 1 tablet by mouth every * VENLAFAXINE 75 MG TABLET Take 1 tablet by mouth three * NYSTATIN 100,000 UNIT/GRAM TO* Apply 1 application to affect* METFORMIN 500 MG TABLET Take 1 tablet by mouth twice * PANTOPRAZOLE 40 MG TABLET,DEL* Take 1 tablet by mouth once d* PRAVASTATIN 20 MG TABLET Take 1 tablet by mouth daily * ALBUTEROL SULFATE HFA 90 MCG/* Inhale 2 Puffs as instructed * OXYBUTYNIN CHLORIDE ER 15 MG * Take 1 tablet by mouth once d* METOPROLOL SUCCINATE ER 25 MG* Take 1 tablet by mouth once d* CIPROFLOXACIN 500 MG TABLET Take 1 tablet by mouth twice * FLUTICASONE 50 MCG/ACTUATION * Use 2 Sprays in each nostril * CYANOCOBALAMIN (VIT B-12) 1,0* Take 1 tablet by mouth once d* CHOLECALCIFEROL (VITAMIN D3) * Take 1 capsule by mouth once * POTASSIUM 99 MG TABLET Take 1 tablet by mouth once d* GABAPENTIN 300 MG CAPSULE Takes 900 in the morning, 120* DIPHENOXYLATE-ATROPINE 2.5 MG* Take 1 tablet by mouth four t* LEVETIRACETAM 500 MG TABLET Take 500 mg by mouth once cora* DIPHENHYDRAMINE 25 MG CAPSULE Take 25 mg by mouth twice cora* CRANBERRY CONCENTRATE-ASCORBI* Take 140 mg by mouth twice da* BLOOD SUGAR DIAGNOSTIC STRIPS Use as instructed SYRINGE (DISPOSABLE) 60 ML Use daily as directed. Dx: v* BACLOFEN 10 MG TABLET Take 1 tablet by mouth three * PRECISION XTRA TEST STRIPS Test blood sugars once daily * NITROFURANTOIN MONOHYDRATE AND * Take 1 capsule by mouth once * MUPIROCIN 2 % TOPICAL OINTMENT Apply 1 application to affect* VITAMIN E 400 UNIT CAPSULE Take 1 capsule by mouth twice* OXYCODONE-ACETAMINOPHEN 5 MG-* MULTIVITAMIN WITH MINERALS TA* Take 1 tablet by mouth four t* TRIAMCINOLONE ACETONIDE 0.1 %* 1 application by DENTAL route* Problem List As Of Date 11/29/2018 Noted Resolved Essential hypertension [I10] More... DEPRESSIVE DISORDER NEC [F32.9] SACROILIITIS NEC [M46.1] INTERNAL DERANGEMENT KNEE-CHRONIC CHONDROMALACI*INVALID FOR* DYSMETABOLIC SYNDROME X [E88.81] INVALID FOR* Spinal stenosis, lumbar region, without neuroge*INVALID FOR*10/24/2016 MORBID OBESITY [E66.01] INVALID FOR* More... VITAMIN D DEFICIENCY NOS [E55.9] INVALID FOR* More... Knee fracture, left [UTZ5268] INVALID FOR* More... Septic shock [A41.9, R65.21] INVALID FOR* Suprapubic catheter [Z93.59] INVALID FOR* More... Lower urinary tract infectious disease [N39.0] INVALID FOR* Hematuria [R31.9] INVALID FOR* Urinary retention [R33.9] INVALID FOR* Polypharmacy [Z79.899] INVALID FOR* Controlled substance agreement signed [Z79.899] INVALID FOR* Chronic pain [G89.29] INVALID FOR* Kidney stone [N20.0] INVALID FOR* Degenerative arthritis of knee, bilateral [M17.*INVALID FOR* Shoulder capsulitis [M75.80] INVALID FOR* Chronic pain syndrome [G89.4] INVALID FOR* Chronic midline low back pain with bilateral sc*INVALID FOR* Spinal stenosis, lumbar region, with neurogenic*INVALID FOR* Decubitus skin ulcer [L89.90] INVALID FOR* Decubitus ulcer, stage 2 [L89.92] INVALID FOR* Controlled type 2 diabetes mellitus without com*INVALID FOR* More... Sacral decubitus ulcer [L89.159] INVALID FOR*03/28/2018 Decubitus ulcer of right perineal ischial regio*INVALID FOR*03/28/2018 Encounter Status:Closed by HECTOR CROCKER PA-C on 11/29/18 CBC-COMPLETE BLOOD CNT Collected: 11/29/2018 Status: F Source: [place] NO DIFF 7:35 AM [facility] REPOS[facility] Order Comment: 157 TYPE CODE TESTS RESULT OUT OF RANGE REFERENCE UNITS LAB L100.1000 4.4-11.0 K/mm3 Normal WBC 6.6 LAB L100.1200 4.2-5.4 M/mm3 Low RBC 3.90 LAB L100.1300 12.0-15.0 g/dl Low HGB 11.4 LAB L100.1400 37-47 % Low HCT 36.5 LAB L100.1500 81-99 fL Normal MCV 93.6 LAB L100.1600 27.0-32.0 pg Normal MCH 29.2 LAB L100.1700 32-36 g/gl Low MCHC 31.2 LAB L100.1810 11.6-14.6 % High RDW CV 17.2 LAB L100.1820 35.1-43.9 fl High RDW SD 56.9 LAB L100.1900 150-450 K/mm3 Normal PLT 327 LAB L100.2000 6.2-12.0 fl Normal MPV 10.1 Performed By: #### L100.0500 #### [facility] [address] [place], [address] BASIC METABOLIC Collected: 11/29/2018 Status: F Source: [place] PROFILE (BMP) 7:35 AM [facility] Order Comment: 157 TYPE CODE TESTS RESULT OUT OF RANGE REFERENCE UNITS LAB L501.0100 74-106 mg/dL High GLU 131 Result Comment: Fasting Glucose result greater than or equal to 126 mg/dL suggests DIABETES MELLITUS per A.D.A. criteria. Please note revised GLUCOSE reference range effective 2017. LAB L501.1000 7-18 mg/dL High BUN 43 LAB L501.1100 0.55-1.02 mg/dL High CREAT,SERUM 1.38 Result Comment: The validity of the calculated GFR AND GFRAA in patients over 70 years has not been determined. Clinical correlation is essential. LAB L501.1110 >60 mL/min Low EST GFR 40 Result Comment: Non- GFR Calc LAB L501.1115 >60 mL/min Low EST GFR - AA 48 Result Comment: GFR Calc LAB L501.1300 10-20 RATIO High BUN/CRE 31.2 LAB L501.2200 8.5-10.1 mg/dL High CA 10.4 LAB L501.5300 136-145 mmol/L Low NA 132 LAB L501.5600 3.5-5.1 mmol/L K Normal 3.9 LAB L501.5900 98-107 mmol/L Low CL 93 LAB L501.6100 21.0-32.0 mmol/L Normal CO2 31.0 LAB L501.6200 5-15 Normal GAP 8 Performed By: #### L500.2500 #### [facility] [address] [place], [address] CBC-COMPLETE BLOOD CNT Collected: 11/22/2018 Status: F Source: ELL[place] NO DIFF 5:55 AM [facility] TYPE CODE TESTS RESULT OUT OF RANGE REFERENCE UNITS LAB L100.1000 4.4-11.0 K/mm3 Normal WBC 7.2 LAB L100.1200 4.2-5.4 M/mm3 Low RBC 3.44 LAB L100.1300 12.0-15.0 g/dl Low HGB 10.0 LAB L100.1400 37-47 % Low HCT 32.8 LAB L100.1500 81-99 fL Normal MCV 95.3 LAB L100.1600 27.0-32.0 pg Normal MCH 29.1 LAB L100.1700 32-36 g/gl Low MCHC 30.5 LAB L100.1810 11.6-14.6 % High RDW CV 16.7 LAB L100.1820 35.1-43.9 fl High RDW SD 54.8 LAB L100.1900 150-450 K/mm3 Normal PLT 333 LAB L100.2000 6.2-12.0 fl Normal MPV 10.1 Performed By: #### L100.0500 #### [facility] [address] [place], [address] BASIC METABOLIC Collected: 11/22/2018 Status: F Source: BOIS D ARC PROFILE (BMP) 5:55 AM [facility] Order Comment: 157 TYPE CODE TESTS RESULT OUT OF RANGE REFERENCE UNITS LAB L501.0100 74-106 mg/dL High GLU 125 Result Comment: Fasting Glucose result from 100 to 125 mg/dL suggests IMPAIRED HOMEOSTASIS per A.D.A. criteria. Please note revised GLUCOSE reference range effective 2017. LAB L501.1000 7-18 mg/dL High BUN 28 LAB L501.1100 0.55-1.02 mg/dL High CREAT,SERUM 1.33 Result Comment: The validity of the calculated GFR AND GFRAA in patients over 70 years has not been determined. Clinical correlation is essential. LAB L501.1110 >60 mL/min Low EST GFR 42 Result Comment: Non- GFR Calc LAB L501.1115 >60 mL/min Low EST GFR - AA 50 Result Comment: GFR Calc LAB L501.1300 10-20 RATIO High BUN/CRE 21.1 LAB L501.2200 8.5-10.1 mg/dL CA Normal 9.4 LAB L501.5300 136-145 mmol/L Low NA 135 LAB L501.5600 3.5-5.1 mmol/L K Normal 3.7 LAB L501.5900 98-107 mmol/L CL Normal 98 LAB L501.6100 21.0-32.0 mmol/L Normal CO2 28.0 LAB L501.6200 5-15 Normal GAP 9 Performed By: #### L500.2500 #### [facility] [address] [place], [address] VITAMIN D,25 HYDROXY Collected: 11/22/2018 Status: F Source: BOIS D ARC 5:55 AM [facility] TYPE CODE TESTS RESULT OUT OF RANGE REFERENCE UNITS LAB L506.1000 29.95-100.01 ng/mL Normal Vitamin D 49.6 25-OH Result Comment: Vitamin D 25(OH) Status Range Deficiency <20 ng/mL (50nmol/L) Insuffciency 20 - 30 ng/mL (50 - 75 nmol/L) Sufficiency 30 - 100 ng/mL (75 - 250 nmol/L) Toxicity >100 ng/mL (>250 nmol/L) Performed By: #### L506.1000 #### [facility] [address] [place], [address] TRANSFER TO EXTENDED Observed: 11/15/2018 Status: F Source: BOIS D ARC CARE 12:13 PM [facility] REPOSIT[facility] Medical Records Department [address] [place] [address] Transfer to Extended Care MR#: [id number] Acct: [id number] Name: ISELA CAMARENA Rep #: [id number] : 1945 73 From: Latonya TSE PCP: Geraldine Valencia MD Status: ADM IN ISELA CAMARENA (Patient) (Health Ins. Claim No.) (Day of Discharge to Facility) Certification of patient admission REQUIRED AT TIME OF ADMISSION. I CERTIFY THAT POST-HOSPITAL ECF SERVICES ARE REQUIRED TO BE GIVEN ON AN IN-PATIENT BASIS BECAUSE OF THE ABOVE NAMED PATIENT'S NEED FOR RETIREMENT CARE ON A CONTINUING BASIS FOR THE CONDITION(S) FOR WHICH HE/SHE WAS RECEIVING IN-PATIENT HOSPITAL SERVICES PRIOR TO HIS/HER TRANSFER TO THE F. 11/15/18 1213 <Electronically signed by Brenda Triana DO> Date: - Diet 11/11/18 21:36 Diet: Cardiac/Low Cholesterol Food consistency:: Regular Liquid Consistency:: Regular/Thin - Routine Orders/Code Status Enema Type: Fleetz Enema Frequency: Daily PRN Suppository Type: Dulcolax 10mg Suppository Frequency: Daily PRN Change Henry Catheter: Suprapubic catheter O2 Liters per Minute: 2 O2 Frequency: PRN Keep PO Greater than or Equal to (%): 90 Routine Lab Work: CBC, BMP, - - Q Week Code Status: Full Code - Wound(s) Rear Left Leg/Hip Wound Type: Pressure Injury Rear Left Leg Wound Type: Pressure Injury Coccyx Wound Type: Pressure Injury - Suggestions for Active Care Change Position every (hours): 2 Times a day to sit in chair: 3 - Therapies Physical Therapy: Eval and Treat Occupational Therapy: Eval and Treat - Problem/Diagnosis (1) Sepsis Status: Ruled-out Current Visit: Yes (2) Acute metabolic encephalopathy Status: Acute Current Visit: Yes (3) Debility Status: Chronic Current Visit: No (4) MICHAELLE (acute kidney injury) Status: Acute Current Visit: Yes (5) Depression Status: Chronic Current Visit: No (6) VITA (obstructive sleep apnea) Status: Chronic Current Visit: No (7) Acute cystitis Status: Ruled-out Current Visit: Yes - Allergies/Procedures Done in Hospital Allergies/Adverse Reactions: Allergies adhesive tape Allergy (Verified 11/11/18 21:47) blisters Influenza Virus Vaccines Allergy (Verified 11/11/18 21:47) shortness of breath/severe wheezing iron Allergy (Verified 11/11/18 21:47) from IV form chest pressure and heart palpitations Sulfa (Sulfonamide Antibiotics) Allergy (Verified 11/11/18 21:47) Shortness of breath bactrim does not work for her-per pcp paperwork meloxicam [From Mobic] Adverse Reaction (Verified 11/11/18 21:47) gi upset seasonal allergies Allergy (Uncoded 11/11/18 21:47) Other - Type of Care/Length of Stay Estimated LOS: Convalescent Care Less Than 30 days Type of Care Needed: Skilled Rehab Potential: Fair Prognosis: Fair - Additional Orders/Day of Discharge H AND P will serve as current which was dated: 11/11/18 Day of Discharge: 11/15/18 - Dietary and Speech Recommendations Dietitian Recommendations/Changes: Suggest diet change to 2000 calorie/cardiac/low sodium with fluid restriction as needed. Will d/c glucdat gudino on medpass--pt refusing AND BMI 56.9. Suggest John 1 packet BID for wound healing--order from pharmacy. - Follow Up Care Primary Care Physician: Geraldine Valencia MD [Primary Care Provider] - Please follow up with your Primary Care Physician in: 1-2 weeks 11/15/18 1112 <Electronically signed by Latonya MATOSC> Date Latonya MATOSC 11/15/18 1213<Electronically signed by Brenda Triana DO> Cosigner Signature: Date Brenda Triana DO CC: Geraldine Valencia MD; Luis Farah M.D. BEDSIDE GLUCOSE Collected: 11/15/2018 Status: F Source: ELLIS 11:18 AM [facility] TYPE CODE TESTS RESULT OUT OF REFERENCE UNITS RANGE LAB L501.080 70-110 mg/dL High BEDSIDE GLU 125 Result Comment: MANAGEMENT OF PATIENT CARE PER NURSING PROTOCOL Performed By: #### L501.080 #### [facility] Point of Care [address] [place] [address] BEDSIDE GLUCOSE Collected: 11/15/2018 Status: F Source: ELLIS 6:23 AM [facility] TYPE CODE TESTS RESULT OUT OF REFERENCE UNITS RANGE LAB L501.080 70-110 mg/dL High BEDSIDE GLU 133 Result Comment: MANAGEMENT OF PATIENT CARE PER NURSING PROTOCOL Performed By: #### L501.080 #### [facility] Point of Care [address] [place] [address] BEDSIDE GLUCOSE Collected: 11/14/2018 Status: F Source: ELLIS 11:47 PM [facility] TYPE CODE TESTS RESULT OUT OF RANGE REFERENCE UNITS LAB L501.080 70-110 mg/dL Normal BEDSIDE GLU 102 Result Comment: MANAGEMENT OF PATIENT CARE PER NURSING PROTOCOL Performed By: #### L501.080 #### [facility] Point of Care [address] [place] [address] BEDSIDE GLUCOSE Collected: 11/14/2018 Status: F Source: BOIS D ARC 5:05 PM [facility] TYPE CODE TESTS RESULT OUT OF REFERENCE UNITS RANGE LAB L501.080 70-110 mg/dL High BEDSIDE GLU 111 Result Comment: MANAGEMENT OF PATIENT CARE PER NURSING PROTOCOL Performed By: #### L501.080 #### [facility] Point of Care [address] [place] [address] 12 LEAD ELECTROCARDIOGRAM Observed: 11/14/2018 Status: F Source: BOIS D ARC 2:29 PM [facility] Cardiovascular Services [address] [place] [address] 12 Lead EKG 11/11/18 1837 MR#: [id number] Acct: [id number] Name: ISELA CAMARENA Rep #: [id number] : 1945 73 From: Jacky Ventura MD Attending Dr: Juju Triana Status: ADM IN Ordering Dr: Jose Trotter MD Date: 11/11/18 Location: PCU Sex: F C Admitted: 11/11/18 Test Reason : WEAKNESS Blood Pressure : / mmHG Vent. Rate : 098 BPM Atrial Rate : 098 BPM P-R Int : 150 ms QRS Dur : 078 ms QT Int : 366 ms P-R-T Axes : 000 012 022 degrees QTc Int : 467 ms Normal sinus rhythm with sinus arrhythmia Inferior infarct , age undetermined Possible Anterolateral infarct , age undetermined Abnormal ECG Confirmed by SEBASTIÁN THOMPSON, JACKY ([id number]), avid editor JAMI TOLENTINO ([id number]) on 11/14/2018 2:28:52 PM Referred By: DC Confirmed By:JACKY VENTURA MD 11/14/18 9905 Date Jacky Ventura MD CC: Juju Triana; Geraldine Valencia MD; Jose Trotter MD Signed DISCHARGE INSTRUCTION Observed: 11/14/2018 Status: F Source: BOIS D ARC 1:15 PM [facility] Medical Records Department [address] [place] [address] Instructions for Home/Discharge Instructions 11/14/18 1307 MR#: [id number] Acct: [id number] Name: ISELA CAMARENA Rep #: [id number] : 1945 73 From: Brenda Triana DO PCP: Palmer THOMPSON,Geraldine Status: ADM IN - Discharge Diagnoses Current Active Problems: Current Active and Chronic Problems Severe sepsis (Acute) Acute cystitis (Acute) You will use the following diet at home:: Calorie/Carbohydrate Controlled (specify 1200, 1400, etc) Your food should be the consistency of: Regular Your liquids should be the consistency of: Regular/Thin Discharge Activity: Return to Normal Activity Additional Instructions: 1. You did not have a urinary tract infection. People with chronic catheters get colonized with bacteria. This means that the bacteria lives in the bladder and the tubing BUT, it does not cause infection with fevers, chills, nausea, elevated white blood cell count. The etiology of the fever you had at admisison is probably a virus that we can not test for. The fever and the high white blood cell count resolved in < than 48 hours and you were on an antibiotic that did not cover the bacteria growing in the urine. the bacteria that did grow in the urine is multi drug resistant......this happens when you are frequently on Antibiotics and joel when you do not take them for a full course. You should not be taking as needed Cipro at home and the Macrodantin is not effective. Allergies/Adverse Reactions: Allergies adhesive tape Allergy (Verified 11/11/18 21:47) blisters Influenza Virus Vaccines Allergy (Verified 11/11/18 21:47) shortness of breath/severe wheezing iron Allergy (Verified 11/11/18 21:47) from IV form chest pressure and heart palpitations Sulfa (Sulfonamide Antibiotics) Allergy (Verified 11/11/18 21:47) Shortness of breath bactrim does not work for her-per pcp paperwork meloxicam [From [facility]] Adverse Reaction (Verified 11/11/18 21:47) gi upset seasonal allergies Allergy (Uncoded 11/11/18 21:47) Other Medications to take at Discharge DiphenhydrAMINE [Benadryl] 25 mg PO BID PRN PRN 09/30/13 Furosemide [Lasix] 20 mg PO TID 09/30/13 Pantoprazole Sodium [Protonix] 40 mg PO DAILY 09/30/13 Pravastatin [Pravachol] 20 mg PO QHS 09/30/13 Albuterol Inhaler [Ventolin Hfa] 2 puff INHALATION Q4H PRN PRN 10/30/18 Baclofen 10 mg PO TID PRN PRN 10/30/18 Cholecalciferol (VIT D3) [Vitamin D3] 1,000 unit PO DAILY 10/30/18 Cranberry Conc/Ascorbic Acid [Cranberry Concentrate Softgel] 1 each PO BID 10/30/18 Cyanocobalamin [Vitamin B12] 1,000 mcg PO DAILY@0800 10/30/18 Diphenoxylate/Atrop [Lomotil] 1 tablet PO 4X/DAY PRN PRN 10/30/18 Duloxetine Hcl [Cymbalta] 30 mg PO DAILY 10/30/18 Fluticasone 0.05% [Flonase Nasal [place]] 2 spray NASAL DAILY 10/30/18 Gabapentin [Neurontin] 600 mg PO TID 10/30/18 Guaifenesin [Mucinex] 1,200 mg PO BID PRN 10/30/18 Hydrocodone Bitart/Apap 5-325 [[place] 5/325] 1 tablet PO Q6H PRN PRN 10/30/18 Lisinopril [Zestril] 10 mg PO DAILY 10/30/18 Metformin HCl [Glucophage] 500 mg PO BID 10/30/18 Metoprolol(XL)Succ [Toprol Xl (Beta Roopa)] 25 mg PO DAILY 10/30/18 Multivitamins,Ther W-Minerals [Multivitamin With Minerals] 1 tablet PO 4X/DAY 10/30/18 Mupirocin [Bactroban] 1 applicatio TOPICAL BID 10/30/18 Nitrofurantoin Macrocrystals [Macrobid] 100 mg PO DAILY 10/30/18 Nystatin Powder [Mycostatin Powder] 1 applicatio TOPICAL BID PRN PRN 10/30/18 Oxybutynin Chloride [Ditropan Xl] 15 mg PO DAILY 10/30/18 Potassium (Otc) [Potassium OTC] 99 mg PO DAILY 10/30/18 Ranitidine [Zantac] 150 mg PO BID 10/30/18 Triamcinolone 0.1% Dental Pst [Kenalog Dental Paste] 1 applicatio TOPICAL 4X/DAY 10/30/18 Venlafaxine XR [Effexor Xr] 150 mg PO BID 10/30/18 Vitamin E 400 units PO BID 10/30/18 levETIRAcetam tablet [Keppra tablet] 500 mg PO QHS 10/30/18 Primary Care Physician: Geraldine Valencia MD [Primary Care Provider] - Please follow up with your Primary Care Physician in: 1-2 weeks Test Results: Test results from this visit will be discussed in further detail at your follow-up appointment, if applicable. Proposed Discharge Date: 11/14/18 11/14/18 1315 <Electronically signed by Brenda Triana DO> Date Brenda Triana DO CC: Geraldine Valencia MD; Luis Farah M.D. Signed BEDSIDE GLUCOSE Collected: 11/14/2018 Status: F Source: ELLIS 12:02 PM [facility] TYPE CODE TESTS RESULT OUT OF REFERENCE UNITS RANGE LAB L501.080 70-110 mg/dL High BEDSIDE GLU 116 Result Comment: MANAGEMENT OF PATIENT CARE PER NURSING PROTOCOL Performed By: #### L501.080 #### [facility] Point of Care [address] [place] [address] CONSULTATION Observed: 11/14/2018 Status: F Source: ELLIS 9:56 AM [facility] Medical Records Department [address] [place] [address] Consultation 11/14/18 0952 MR#: [id number] Acct: [id number] Name: ISELA CAMARENA Rep #: [id number] : 1945 73 From: Luis Farah MD PCP: Geraldine Valencia MD Status: ADM IN Y Location: [place] [address] Reason for Consult: Positive urine culture and concern of sepsis Consulted by: Dr. Triana History of Present Illness: The patient is a 73 year old F [] This is a 73-year-old white female with multiple comorbidities including morbid obesity, diabetes mellitus, obstructive sleep apnea, long-standing history of a suprapubic catheter placement who was recently hospitalized in October here at [facility] discharge a little over a week ago. Patient was readmitted because of generalized weakness and unable to take care of herself. Patient did have a leukocytosis and some intermittent fevers initially and was placed on ceftriaxone. She is currently more alert conversive and overall hemodynamically and clinically stable no further fevers. Her admission blood cultures remain negative. Her urine culture from her suprapubic catheter is growing pseudomonas aeruginosa. Denies any gastrointestinal distress at this time no diarrhea. No nausea vomiting. No significant cardiopulmonary distress. History is obtained through reviewing the chart as well as talking to the patient and talking to the hospitalist. - Medical History Past Medical History (Chronic Problems): Chronic Problems Debility (Chronic) Depression (Chronic) VITA (obstructive sleep apnea) (Chronic) Allergies/Adverse Reactions: Allergies adhesive tape Allergy (Verified 11/11/18 21:47) blisters Influenza Virus Vaccines Allergy (Verified 11/11/18 21:47) shortness of breath/severe wheezing iron Allergy (Verified 11/11/18 21:47) from IV form chest pressure and heart palpitations Sulfa (Sulfonamide Antibiotics) Allergy (Verified 11/11/18 21:47) Shortness of breath bactrim does not work for her-per pcp paperwork meloxicam [From Mobic] Adverse Reaction (Verified 11/11/18 21:47) gi upset seasonal allergies Allergy (Uncoded 11/11/18 21:47) Other Home Medications: Ambulatory Orders Medication Instructions Recorded DiphenhydrAMINE [Benadryl] 25 mg PO BID PRN PRN 09/30/13 Furosemide [Lasix] 20 mg PO TID 09/30/13 Vital Signs Temp Pulse Resp BP Pulse Ox 98.2 F 94 16 135/67 H 97 11/14/18 09:12 11/14/18 09:36 11/14/18 09:12 11/14/18 09:36 11/14/18 09:12 Oxygen Flow Rate (L/min) 2 Oxygen Delivery Method Nasal Cannula Weight: 160 kg Body Mass Index (BMI) 56.9 Microbiology Past 72 Hours 11/11/18 19:57 Urine Culture - Final Urine Catheter - Henry Pseudomonas aeroginosa 11/11/18 23:45 Blood Culture - Preliminary Blood Culture (Wb) - Anticubital Left No growth in 48 hours. Laboratory Tests Past 24 Hrs Lactic Acid 1.0 - Other Studies Radiology: [] Other Studies: [] Route of nutrition/ use of supplements: [] Nutritional Intake: [] IV Site: [] Henry Catheter: [] Patient is alert responsive does not appear toxic lungs are clear heart exam S1-S2 abdomen is obese but soft suprapubic catheter in place no peripheral skin lesions noted. Chest x-ray results reviewed as well as her laboratory studies reviewed - Assessment/Plan Antibiotics: [] Assessment/Plan: [] Active and Suspected Problems Severe sepsis (Acute) Acute cystitis (Acute) Clinically I doubt the patient's urine culture is significant especially the fact she has a suprapubic catheter in place. No clinical signs of active infection and her blood cultures remain negative. Okay to discontinue ceftriaxone at this point. 11/14/18 0956 <Electronically signed by Luis Farah MD> Date Luis Farah MD Cosigner Signature (if applicable): Date CC: Geraldine Valencia MD; Luis Farah M.D. Signed BEDSIDE GLUCOSE Collected: 11/14/2018 Status: F Source: ELLIS 6:52 AM [facility] REPOSITORY TYPE CODE TESTS RESULT OUT OF REFERENCE UNITS RANGE LAB L501.080 70-110 mg/dL High BEDSIDE GLU 179 Result Comment: MANAGEMENT OF PATIENT CARE PER NURSING PROTOCOL Performed By: #### L501.080 #### [facility] Point of Care [address] [place], [place] [id number] BEDSIDE GLUCOSE Collected: 11/13/2018 Status: F Source: BOIS D ARC 9:26 PM [facility] REPOSITORY TYPE CODE TESTS RESULT OUT OF REFERENCE UNITS RANGE LAB L501.080 70-110 mg/dL High BEDSIDE GLU 169 Result Comment: MANAGEMENT OF PATIENT CARE PER NURSING PROTOCOL Performed By: #### L501.080 #### [facility] Point of Care [address] [place], [place] [id number] BEDSIDE GLUCOSE Collected: 11/13/2018 Status: F Source: BOIS D ARC 5:04 PM [facility] REPOSITORY TYPE CODE TESTS RESULT OUT OF REFERENCE UNITS RANGE LAB L501.080 70-110 mg/dL High BEDSIDE GLU 145 Result Comment: MANAGEMENT OF PATIENT CARE PER NURSING PROTOCOL Performed By: #### L501.080 #### [facility] Point of Care [address] [place], [place] [id number] Observed: 11/13/2018 Status: F Source: BOIS D ARC INFLUENZA A+B (RAPID 4:10 PM [facility] [place]) REPOSITORY FLU A/B Rapid Negative test results should be confirmed with FLU PANEL MOLECULAR if indicated. Influenza Ag, Direct Presumptive NEGATIVE for Influenza A/B Antigen (See Note) Performed By: #### M101.0101 #### [facility] [address] [place] [address]. [place], [place], [address] Observed: 11/13/2018 Status: F Source: BOIS D ARC RESPIRATORY PANEL 4:10 PM [facility] MOLECULAR REPOSITORY RP PANEL ADENOVIRUS Not Detected HUMAN METAPHNEUMO Not Detected INFLUENZA A Not Detected INFLUENZA A (SUBTYPE H1) Not Detected INFLUENZA A (SUBTYPE H3) Not Detected INFLUENZA B Not Detected PARAINFLUENZA 1 Not Detected PARAINFLUENZA 2 Not Detected PARAINFLUENZA 3 Not Detected PARAINFLUENZA 4 Not Detected RHINOVIRUS Not Detected RSV A Not Detected RSV B Not Detected NAAT METHOD Testing was performed using nucleic acid amplification Performed By: #### M100.638 #### [facility] [address] [place], [address] LACTIC ACID Collected: 11/13/2018 Status: F Source: ELLIS 4:03 PM [facility] REPOSITORY Order Comment: Yes/No query for Sepsis Lactate Rule Y TYPE CODE TESTS RESULT OUT OF RANGE REFERENCE UNITS LAB L503.6005 0.4-2.0 mmol/L Normal LACTIC ACID 1.0 Performed By: #### L503.6005 #### [facility] [address] [place], [address] BEDSIDE GLUCOSE Collected: 11/13/2018 Status: F Source: ELLIS 11:57 AM [facility] REPOSITORY TYPE CODE TESTS RESULT OUT OF REFERENCE UNITS RANGE LAB L501.080 70-110 mg/dL High BEDSIDE GLU 159 Result Comment: MANAGEMENT OF PATIENT CARE PER NURSING PROTOCOL Performed By: #### L501.080 #### [facility] Point of Care [address] [place] [address] BEDSIDE GLUCOSE Collected: 11/13/2018 Status: F Source: ELLIS 6:46 AM [facility] REPOSITORY TYPE CODE TESTS RESULT OUT OF REFERENCE UNITS RANGE LAB L501.080 70-110 mg/dL High BEDSIDE GLU 128 Result Comment: MANAGEMENT OF PATIENT CARE PER NURSING PROTOCOL Performed By: #### L501.080 #### [facility] Point of Care [address] [place] [address] COMPREHENSIVE METABOLIC Collected: 11/13/2018 Status: F Source: ELLIS PROFIL 5:50 AM [facility] REPOSITORY TYPE CODE TESTS RESULT OUT OF RANGE REFERENCE UNITS LAB L501.0100 74-106 mg/dL High GLU 122 Result Comment: Fasting Glucose result from 100 to 125 mg/dL suggests IMPAIRED HOMEOSTASIS per A.D.A. criteria. Please note revised GLUCOSE reference range effective 2017. LAB L501.1000 7-18 mg/dL High BUN 20 LAB L501.1100 0.55-1.02 mg/dL High CREAT,SERUM 1.09 Result Comment: The validity of the calculated GFR AND GFRAA in patients over 70 years has not been determined. Clinical correlation is essential. LAB L501.1110 >60 mL/min Low EST GFR 52 Result Comment: Non- GFR Calc LAB L501.1115 >60 mL/min Normal EST GFR - AA 63 Result Comment: GFR Calc LAB L501.1255 ml/min Normal Estimated CRCL 43.67 LAB L501.1300 10-20 RATIO Normal BUN/CRE 18.3 LAB L501.1500 6.4-8. g/dL Normal 2 T PROT 7.0 LAB L501.1800 3.2-5. g/dL Low 0 ALB 2.3 LAB L501.1950 2.2-4. g/dL High 2 GLOB 4.7 LAB L501.2000 0.9-2. RATIO Low 4 A/G 0.5 LAB L501.2200 8.5-10 mg/dL Normal .1 CA 8.6 LAB L501.4100 15-37 U/L Normal AST 16 LAB L501.4305 45-117 U/L Normal ALK P 52 LAB L501.4405 13-56 U/L Low ALT 12 LAB L501.4600 0.20-1 mg/dL Normal .00 T BILI 0.50 LAB L501.5300 136-14 mmol/L Normal 5 NA 137 LAB L501.5600 3.5-5. mmol/L Normal 1 K 3.7 LAB L501.5900 98-107 mmol/L Normal CL 99 LAB L501.6100 21.0-3 mmol/L Normal 2.0 CO2 30.0 LAB L501.6200 5-15 Normal GAP 8 Performed By: #### L500.4050, L501.2300, L501.5200 #### [facility] [address] [place], [place], [id number] PHOSPHORUS Collected: 11/13/2018 Status: F Source: BOIS D ARC 5:50 AM [facility] REPOSITORY TYPE CODE TESTS RESULT OUT OF RANGE REFERENCE UNITS LAB L501.2300 2.5-4.9 mg/dL Normal PHOS 3.2 Performed By: #### L500.4050, L501.2300, L501.5200 #### [facility] [address] [place], [address] MAGNESIUM Collected: 11/13/2018 Status: F Source: ELLIS 5:50 AM [facility] REPOSITORY TYPE CODE TESTS RESULT OUT OF RANGE REFERENCE UNITS LAB L501.5200 1.6-2.6 mg/dL Normal MG 2.0 Performed By: #### L500.4050, L501.2300, L501.5200 #### [facility] [address] [place], [address] CBC W/DIFF, AUTOMATED Collected: 11/13/2018 Status: F Source: ELLIS 5:50 AM [facility] REPOSITORY TYPE CODE TESTS RESULT OUT OF RANGE REFERENCE UNITS LAB L100.1000 4.4-11.0 K/mm3 Normal WBC 8.7 LAB L100.1200 4.2-5.4 M/mm3 Low RBC 3.32 LAB L100.1300 12.0-15.0 g/dl Low HGB 9.4 LAB L100.1400 37-47 % Low HCT 31.0 LAB L100.1500 81-99 fL Normal MCV 93.4 LAB L100.1600 27.0-32.0 pg Normal MCH 28.3 LAB L100.1700 32-36 g/gl Low MCHC 30.3 LAB L100.1810 11.6-14.6 % High RDW CV 17.4 LAB L100.1820 35.1-43.9 fl High RDW SD 59.3 LAB L100.1900 150-450 K/mm3 Normal PLT 256 LAB L100.2000 6.2-12.0 fl Normal MPV 9.5 LAB L100.2100 47-70 % Normal NEUT% 64.8 LAB L100.2200 19-41 % Low LY% 17.3 LAB L100.2300 0-10 % High MONO% 14.2 LAB L100.2400 0-5 % Normal EO% 3.1 LAB L100.2500 0-1 % Normal BASO% 0.3 LAB L100.2550 0.0-0.9 % Normal IM GRAN % 0.300 Result Comment: IG% - Immature Granulocytes (promyelocytes, myelocytes and metamyelocytes) > 1% indicates that a LEFT SHIFT is Present. LAB L100.2620 2.0-7.7 X10 3/uL Normal Absolute Neut 5.7 LAB L100.2720 0.83-4.51 X10 3/ul Normal Absolute Lymph 1.51 Performed By: #### L100.0100 #### [facility] [address] [place], [place], [id number] BEDSIDE GLUCOSE Collected: 11/12/2018 Status: F Source: ELLIS 10:52 PM [facility] REPOSITORY TYPE CODE TESTS RESULT OUT OF REFERENCE UNITS RANGE LAB L501.080 70-110 mg/dL High BEDSIDE GLU 114 Result Comment: MANAGEMENT OF PATIENT CARE PER NURSING PROTOCOL Performed By: #### L501.080 #### [facility] Point of Care [address] [place] [address] BEDSIDE GLUCOSE Collected: 11/12/2018 Status: F Source: ELLIS 4:14 PM [facility] REPOSITORY TYPE CODE TESTS RESULT OUT OF REFERENCE UNITS RANGE LAB L501.080 70-110 mg/dL High BEDSIDE GLU 158 Result Comment: MANAGEMENT OF PATIENT CARE PER NURSING PROTOCOL Performed By: #### L501.080 #### [facility] Point of Care [address] [place] [address] BEDSIDE GLUCOSE Collected: 11/12/2018 Status: F Source: ELLIS 11:46 AM [facility] REPOSITORY TYPE CODE TESTS RESULT OUT OF REFERENCE UNITS RANGE LAB L501.080 70-110 mg/dL High BEDSIDE GLU 184 Result Comment: MANAGEMENT OF PATIENT CARE PER NURSING PROTOCOL Performed By: #### L501.080 #### [facility] Point of Care [address] [place] [address] BEDSIDE GLUCOSE Collected: 11/12/2018 Status: F Source: ELLIS 6:51 AM [facility] REPOSITORY TYPE CODE TESTS RESULT OUT OF REFERENCE UNITS RANGE LAB L501.080 70-110 mg/dL High BEDSIDE GLU 156 Result Comment: MANAGEMENT OF PATIENT CARE PER NURSING PROTOCOL Performed By: #### L501.080 #### [facility] Point of Care [address] [place] [address] HISTORY AND PHYSICAL Observed: 11/12/2018 Status: F Source: ELLIS EXAM 6:18 AM [facility] REPOSITORY [facility] Medical Records Department [address] [place] [address] History and Physical 11/11/182035 MR#: [id number] Acct: [id number] Name: ISELA CAMARENA Rep #: [id number] : 1945 73 From: Kyree Dutta MD PCP: Geraldine Valencia MD Status: ADM IN Y Location: [place] [address] Problem List (1) Severe sepsis Status: Acute (2) Acute cystitis Status: Acute (3) Depression Status: Chronic History of Present Illness Date of Admission: 11/11/18 Chief Complaint: Fatigue and fall The patient is a 73 year old F on 10/30/2018 and discharged on 11/02/2018 for sepsis secondary to acute cystitis secondary to presence of a suprapubic catheter whose care was complicated with SVT and eventually was transferred to the intensive care unit presenting again on 11/11/2028 with a chief complaint of severe tiredness that started on the same day of current presentation to the emergency department (11/11/2018). Also patient reported that because of severe tiredness as she lost her balance and fell from a 'sitter stand whiles at her bathroom. Reportedly her urine from the suprapubic catheter has been more dark and has a stronger order to it. Associated with her symptoms is shortness of breath. He denies any fever, chills, nausea, vomiting or anorexia. At the emergency department she had a temperature of 100F; pulse rate of 108. She had a leukocytosis with a white count of 17.3; severely elevated creatinine of 1.63; abnormal urinalysis and lactic acid of 3.1. Patient was diagnosed with a severe sepsis and received IV fluid per severe sepsis protocol and was initiated on broad-spectrum antibiotics. Her medical history is remarkable for super morbid obesity; heart failure; depression, anxiety, asthma, diabetes mellitus, presence of suprapubic catheter, hypertension and heart failure. Past Medical History Past Medical History (Chronic Problems): Chronic Problems Debility (Chronic) Depression (Chronic) VITA (obstructive sleep apnea) (Chronic) Allergies adhesive tape Allergy (Verified 11/11/18 18:09) blisters Influenza Virus Vaccines Allergy (Verified 11/11/18 18:09) shortness of breath/severe wheezing iron Allergy (Verified 11/11/18 18:09) from IV form chest pressure and heart palpitations Sulfa (Sulfonamide Antibiotics) Allergy (Verified 11/11/18 18:09) Shortness of breath bactrim does not work for her-per pcp paperwork meloxicam [From [employer]] Adverse Reaction (Verified 11/11/18 18:09) gi upset seasonal allergies Allergy (Uncoded 11/11/18 18:09) Other Home Medications: Ambulatory Orders Medication Instructions Recorded DiphenhydrAMINE [Benadryl] 25 mg PO BID PRN PRN 09/30/13 Furosemide [Lasix] 20 mg PO TID 09/30/13 Surgical History: cholecystectomy, hysterectomy Psychiatric History: Anxiety, Depression MANAGER STYLE History: No pertinent MANAGER STYLE history Lives: Alone - Have care providers will take care of her 05/06. Smoking Status: Never smoker Alcohol: None - *Family History Maternal History Items: Diabetes, Heart Disease - Her father had a CABG and CHF, Unknown Paternal History Items: Heart Disease, No pertinent history Review of Systems Constitutional: Reports: Weakness, Fatigue. Denies: Chills, Fever, Weight Change HEENT: Denies: Head Aches, Sinus Congestion, Sinus Drainage Cardiovascular: Denies: Chest Pain, Palpitations Respiratory: Reports: Shortness of Breath. Denies: Cough, Shortness of breath at rest, Sputum production Gastrointestinal: Denies: Abdominal Pain, Nausea, Vomiting Genitourinary: Reports: -. Denies: Dysuria Musculoskeletal: Denies: Joint Pain, Joint Tenderness Skin: Denies: Rash, Wounds Neurological: Denies: Numbness, Tingling, Focal weakness Psychiatric: Denies: Anxiety, Depression, Homicidal Ideations, Suicidal Ideations Hematologic/ Lymphatic: Denies: Easy Bruising, Easy Bleeding VTE Information - Inpt Only VTE Present on Admission: No VTE Mechan Device Prophylaxis: None VTE Pharm Prophylaxis ordered?: Yes Patient Problems: Active and Suspected Problems Severe sepsis (Acute) Acute cystitis (Acute) - Physical Exam General: Alert, Oriented x3, Cooperative HEENT: Atraumatic, PERRLA, EOMI, Normocephalic Neck: Supple, No JVD, Negative Carotid Bruits Lungs: Clear to auscultation, Normal air movement Cardiovascular: No murmurs, Tachycardic Abdomen: Bowel Sounds Present, Soft, Non Tender Extremities: No edema, Capillary Refill Less than 3 Seconds Skin: - - Ulcer at the coccyx; excoriation to posterior left thigh. Musculoskeletal: No Tenderness to Palpation of Joints or Extremities Neurological: Cranial nerves II-XII grossly intact Psych/Mental Status: Normal Affect, Appropriate Vital Signs Temp Pulse Resp BP Pulse Ox 100 F H 102 H 18 113/72 93 11/11/18 18:09 11/11/18 18:09 11/11/18 18:09 11/11/18 18:09 11/11/18 18:09 Oxygen Delivery Method Room Air Weight: 169.9 kg Body Mass Index (BMI) 58.6 Laboratory Tests Past 24 Hrs WBC 17.3 H RBC 3.87 L Hgb 11.2 L Hct 36.0 L MCV 93.0 MCH 28.9 MCHC 31.1 L RDW 17.4 H RDW Differential 58.3 H Assessment/Plan All Active Problems Sepsis (Acute) MICHAELLE (acute kidney injury) (Acute) Shortness of breath (Acute) Tachycardia (Acute) Severe sepsis (Acute) Acute cystitis (Acute) Suprapubic catheter dysfunction (Acute) UTI (urinary tract infection) (Acute) The patient is a 73 year old F with a significant history of super morbid obesity; heart failure; depression, anxiety, asthma, diabetes mellitus, presence of suprapubic catheter, hypertension and heart failure who was admitted at our Hospital on 10/30/2018 and discharged on 11/02/2018 for sepsis secondary to acute cystitis with suprapubic catheter; and whose care was complicated with SVT and was eventually was transferred to the intensive care unit presenting again on 11/11/2028 with a chief complaint of a severe fatigue, and found to meet SIRS criteria and have abnormal urinalysis and elevated lactic acid consistent with a severe sepsis secondary to acute cystitis secondary to suprapubic catheter. Severe sepsis secondary to acute cystitis secondary to suprapubic catheter Patient met Sirs criteria with elevated white count of 17.3; and elevated heart rates of 108. She made diagnosis of severe sepsis secondary to end organ damage as evidenced by lactic acid of 3.1; and kidney injury with creatinine of 1.63. Review of old records show that his creatinine on 06/05/2018 was 0.8. Hold home as needed Cipro and daily nitrofurantoin. Blood culture x2 was obtained at the emergency department; results are pending. Urine culture is pending. Elevated lactic acid on admission; trend. Received broad-spectrum antibiotic emergency department ceftriaxone. Ceftriaxone continued. Tylenol as needed for fever. Acute kidney injury Her creatinine on admission was 1.63. Review of old records show that her creatinine on 06/05/2018 was 0.8. Her BUN over creatinine was 13.5. 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 Patient received IV fluids at emergency department. We will not continue IV fluids at this time since patient is on home Lasix. Lasix was held on admission. Trend BMP Avoid nephrotoxics Diabetes mellitus Admission blood glucose was within goal. Because of lactic acidosis would hold metformin and Will initiate on correction scale insulin. Heart failure with preserved ejection fraction Review of old records showed that echocardiogram on 10/31/2018 showed an ejection fraction of 75% and with stage I diastolic dysfunction. The echocardiogram was unable to estimate her right ventricular systolic blood pressure due to inadequate jets. Consider resuming Lasix. Decubitus ulcer Calmoseptine ordered Wound care consult. Left leg excoriation continue Bactroban Arthritis Patient reports that she use Keppra for pain. Keppra continued. Keppra continued [place] continued. Intertrigo Nystatin cream to folds. DVT prophylaxis Subcutaneous heparin ordered. Code Visit Inpatient E AND M: [id number] Init Hosp L3 11/12/18 0618 <Electronically signed by Kyree Dutta MD> Date Kyree Dutta MD Cosigner Signature: Date (if applicable) CC: Geraldine Valencia MD; Kyree Dutta MD Signed CBC W/DIFF, AUTOMATED Collected: 11/12/2018 Status: F Source: ELLIS 5:35 AM [facility] REPOSITORY TYPE CODE TESTS RESULT OUT OF RANGE REFERENCE UNITS LAB L100.1000 4.4-11.0 K/mm3 Normal WBC 11.0 LAB L100.1200 4.2-5.4 M/mm3 Low RBC 3.35 LAB L100.1300 12.0-15.0 g/dl Low HGB 9.7 LAB L100.1400 37-47 % Low HCT 31.6 LAB L100.1500 81-99 fL Normal MCV 94.3 LAB L100.1600 27.0-32.0 pg Normal MCH 29.0 LAB L100.1700 32-36 g/gl Low MCHC 30.7 LAB L100.1810 11.6-14.6 % High RDW CV 17.3 LAB L100.1820 35.1-43.9 fl High RDW SD 57.3 LAB L100.1900 150-450 K/mm3 Normal PLT 288 LAB L100.2000 6.2-12.0 fl Normal MPV 9.8 LAB L100.2100 47-70 % High NEUT% 79.0 LAB L100.2200 19-41 % Low LY% 10.0 LAB L100.2300 0-10 % Normal MONO% 9.4 LAB L100.2400 0-5 % Normal EO% 1.1 LAB L100.2500 0-1 % Normal BASO% 0.3 LAB L100.2550 0.0-0.9 % Normal IM GRAN % 0.200 Result Comment: IG% - Immature Granulocytes (promyelocytes, myelocytes and metamyelocytes) > 1% indicates that a LEFT SHIFT is Present. LAB L100.2620 2.0-7.7 X10 3/uL High Absolute Neut 8.7 LAB L100.2720 0.83-4.51 X10 3/ul Normal Absolute Lymph 1.10 Performed By: #### L100.0100 #### [facility] [address] [place], [address] BASIC METABOLIC Collected: 11/12/2018 Status: F Source: BOIS D ARC PROFILE ([facility]) 5:35 AM [facility] REPOSITORY TYPE CODE TESTS RESULT OUT OF RANGE REFERENCE UNITS LAB L501.0100 74-106 mg/dL High GLU 160 Result Comment: Fasting Glucose result greater than or equal to 126 mg/dL suggests DIABETES MELLITUS per A.D.A. criteria. Please note revised GLUCOSE reference range effective 2017. LAB L501.1000 7-18 mg/dL High BUN 20 LAB L501.1100 0.55-1.02 mg/dL High CREAT,SERUM 1.29 Result Comment: The validity of the calculated GFR AND GFRAA in patients over 70 years has not been determined. Clinical correlation is essential. LAB L501.1110 >60 mL/min Low EST GFR 43 Result Comment: Non- GFR Calc LAB L501.1115 >60 mL/min Low EST GFR - AA 52 Result Comment: GFR Calc LAB L501.1255 ml/min Normal Estimated CRCL 36.90 LAB L501.1300 10-20 RATIO Normal BUN/CRE 15.5 LAB L501.2200 8.5-10 mg/dL Normal .1 CA 8.6 LAB L501.5300 136-14 mmol/L Normal 5 NA 138 LAB L501.5600 3.5-5. mmol/L Normal 1 K 3.7 LAB L501.5900 98-107 mmol/L Normal CL 101 LAB L501.6100 21.0-3 mmol/L Normal 2.0 CO2 29.0 LAB L501.6200 5-15 Normal GAP 8 Performed By: #### L500.2500 #### [facility] [address] [place], [address] HEMOGLOBIN A1C Collected: 11/12/2018 Status: F Source: BOIS D ARC 5:35 AM [facility] REPOSITORY TYPE CODE TESTS RESULT OUT OF RANGE REFERENCE UNITS LAB L501.9985 4.2-6.3 % Normal HGB A1C 6.3 Performed By: #### L501.9985 #### [facility] [address] [place], [address] EMERGENCY DEPARTMENT Observed: 11/11/2018 Status: F Source: BOIS D ARC SUMMARY 11:57 PM [facility] REPOSITORY [facility] Medical Records Department [address] [place] [address] Emergency Department Summary 11/11/182045 MR#: [id number] Acct: [id number] Name: ISELA CAMARENA Rep #: [id number] : 1945 73 From: Jose Trotter MD PCP: Geraldine Valencia MD Status: ADM IN - ER Visit Summary Date of Service: 11/11/18 Chief Complaint: Tired History of Present Illness: The patient is a 73 F who presents with tiredness and generalized weakness that started yesterday and got worse today. This is associated with dark urine. She felt so weak today that she slid down into a sitting position. She says she did not injure anything, only her pride. She was obtained to confirm ascites was recently admitted for sepsis from a UTI with acute kidney injury, encephalopathy, shortness of breath, and tachycardia. She is currently on Macrobid and Cipro. She has a suprapubic catheter and is frequently treated for UTIs. Fevers. Denies chest pain or shortness of breath. denies GI symptoms. Physical Examination: Afebrile. Heart rate 102 otherwise vitals normal. No oriented. No acute distress. Heart tachycardic but regular. Lungs clear. Abdomen soft. Urine is dark in color. Extremities show 2+ edema, symmetric. Pulses strong and equal. Skin normal in color. Test Results: EKG showed sinus rhythm at a rate of 98. Nonspecific changes. No sign of acute ischemia or infarction pattern. White count 17.3 and hemoglobin 11.2. Sodium 133 and chloride 96, glucose 142, BUN 22, creatinine 1.63. Hepatic panel and coags normal. Urinalysis consistent with a UTI. Cultures pending. Troponin normal. Lactate 3.1. Chest x-ray unremarkable. Emergency Department Course and Treatment: Patient was treated with fluid bolus for ideal body weight. She meets severe sepsis criteria. This is likely from a UTI. She has been on Cipro and Macrobid. She was treated with Rocephin. Patient is hemodynamically stable and not in shock. She will need admission for further care. Discussed with the hospitalist. Treatment Plan: As above Disposition: Admission Impression: 1. UTI 2. Severe sepsis This note was generated with [employer] dictation software. It may contain incorrect words, spelling, and punctuation that were not noted in review of the chart prior to signing ED Disposition - Plan for ED Patient: Chief Complaint: Weakness Referrals: Geraldine Valencia MD [Primary Care Provider] - What to do if you have Problems For any increased pain, shortness of breath, bleeding, nausea or vomiting, chest pain, or any unexpected problems, contact your Primary Care Provider. Call [facility] ([phone]) or report to the closest Emergency Room. Call 911 if necessary. 11/11/18 3727 <Electronically signed by Jose Trotter MD> Date Jose Trotter MD Cosigner Signature (If Indicated): Date CC: Geraldine Valencia MD Observed: 11/11/2018 Status: F Source: ELLIS CULTURE, BLOOD (WB) 11:45 PM [facility] REPOSITORY BC No growth in 5 days. Performed By: #### M200.1000 #### [facility] [address] [place], [place], [address] BEDSIDE GLUCOSE Collected: 11/11/2018 Status: F Source: ELLIS 11:17 PM [facility] REPOSITORY TYPE CODE TESTS RESULT OUT OF REFERENCE UNITS RANGE LAB L501.080 70-110 mg/dL High BEDSIDE GLU 120 Result Comment: MANAGEMENT OF PATIENT CARE PER NURSING PROTOCOL Performed By: #### L501.080 #### [facility] Point of Care [address] [place], [place] [address] LACTIC ACID Collected: 11/11/2018 Status: F Source: ELLIS 10:55 PM [facility] REPOSITORY TYPE CODE TESTS RESULT OUT OF RANGE REFERENCE UNITS LAB L503.6005 0.4-2.0 mmol/L Normal LACTIC ACID 1.8 Performed By: #### L503.6005 #### [facility] [address] [place], [place], [address] URINALYSIS, COMPLETE Collected: 11/11/2018 Status: F Source: ELLIS 7:57 PM [facility] REPOSITORY Order Comment: How was Urine Obtained? CATHETER SPECIMEN TYPE CODE TESTS RESULT OUT OF RANGE REFERENCE UNITS LAB L400.3000 Yellow COLOR Normal Yellow LAB L400.3050 Clear Normal CLARITY Cloudy LAB L400.3200 Normal mg/dl Normal GLUCOSE, UR Normal LAB L400.3300 Negative mg/dL Normal BILIRUBIN URINE Negative LAB L400.3400 Negative mg/dl Normal KETONE UR Negative LAB L400.3465 1.002-1.030 Normal SP.GR. DIPSTX 1.010 LAB L400.3550 5.0 - 8.0 pH UR Normal 6.5 LAB L400.3600 Negative mg/dl High PROT DIPSTX 100 LAB L400.3700 Normal mg/dl Normal UROBILI Normal LAB L400.3750 Negative High NITRITE UR Positive LAB L400.3780 Negative /ul High OCCULT BLOOD-UR 250 LAB L400.3800 Negative /ul High LEUK ESTERASE 500 LAB L400.4050 0-5 /hpf WBC Normal >100 SEEN Result Comment: Microscopic field is filled. Other elements may be obscured. LAB L400.4100 0-5 /hpf Normal RBC-UA 0 SEEN LAB L400.4150 5-10 /hpf Normal SQUAM EPI 0 SEEN LAB L400.4300 None Seen /hpf Normal BACTERIA 0 SEEN LAB L400.4350 <or=2+ /hpf Normal MUCUS, URINE 0 SEEN Performed By: #### L400.0001 #### [facility] [address] [place], [place], [address] Observed: 11/11/2018 Status: F Source: BOIS D ARC CULTURE, URINE 7:57 PM [facility] RE[facility] Urine Culture RESULTS CALLED TO Mara ERNST 11/14/18 08Brittnee Pro. REPORT READ BACK BY CHARLENE. Copy of report sent to Infection Control Printer [id number] 11/14/18 Atilio MARK. ORGANISM 1: Pseudomonas aeroginosa [place] Count >100,000 MARKER Multi Drug Resistant Organism Pseudomonas aeroginosa: REACTION Aztreonam $$$ 27 S Pseudomonas aeroginosa: REACTION Amikacin $ >=64 R Cefepime $ >=64 R Ceftazidime *NF >=64 R Ciprofloxacin $ >=4 R Gentamicin $ >=16 R Imipenem *NF >=16 R Levofloxacin $ >=8 R Meropenem $ >=16 R Tobramycin $ >=16 R (NF) indicates non-formulary drug at [facility]. Approval by Infectious Disease Specialist required before non-formulary drugs may be ordered and/or dispensed. Pseudomonas aeroginosa: REACTION Cefepime $ >=64 R Ceftazidime *NF >=64 R Ciprofloxacin $ >=4 R Gentamicin $ >=16 R Imipenem *NF >=16 R Levofloxacin $ >=8 R Tobramycin $ >=16 R (NF) indicates non-formulary drug at [facility]. Approval by Infectious Disease Specialist required before non-formulary drugs may be ordered and/or dispensed. Performed By: #### M100.0650 #### [facility] [address] [place], [place], [address] PROTHROMBIN TIME W/INR Collected: 11/11/2018 Status: F Source: BOIS D ARC 7:25 PM [facility] REPOSIT[facility] TYPE CODE TESTS RESULT OUT OF RANGE REFERENCE UNITS LAB L300.4150 11.7-14.9 SECONDS Normal PROTIME 14.8 LAB L300.4200 Normal INR 1.2 Performed By: #### L300.3900, L300.4310 #### [facility] [address] [place], [place], [address] PARTIAL THROMBOPLAST Collected: 11/11/2018 Status: F Source: BOIS D ARC TIME 7:25 PM [facility] REPOSITORY TYPE CODE TESTS RESULT OUT OF RANGE REFERENCE UNITS LAB L300.4310 24.1-36.2 Seconds Normal PTT 32.9 Performed By: #### L300.3900, L300.4310 #### [facility] [address] [place], [address] CBC W/DIFF, AUTOMATED Collected: 11/11/2018 Status: F Source: BOIS D ARC 6:35 PM [facility] REPOSITORY TYPE CODE TESTS RESULT OUT OF RANGE REFERENCE UNITS LAB L100.1000 4.4-11.0 K/mm3 High WBC 17.3 LAB L100.1200 4.2-5.4 M/mm3 Low RBC 3.87 LAB L100.1300 12.0-15.0 g/dl Low HGB 11.2 LAB L100.1400 37-47 % Low HCT 36.0 LAB L100.1500 81-99 fL Normal MCV 93.0 LAB L100.1600 27.0-32.0 pg Normal MCH 28.9 LAB L100.1700 32-36 g/gl Low MCHC 31.1 LAB L100.1810 11.6-14.6 % High RDW CV 17.4 LAB L100.1820 35.1-43.9 fl High RDW SD 58.3 LAB L100.1900 150-450 K/mm3 Normal PLT 355 LAB L100.2000 6.2-12.0 fl Normal MPV 9.8 LAB L100.2100 47-70 % High NEUT% 84.2 LAB L100.2200 19-41 % Low LY% 5.7 LAB L100.2300 0-10 % Normal MONO% 8.7 LAB L100.2400 0-5 % Normal EO% 0.8 LAB L100.2500 0-1 % Normal BASO% 0.2 LAB L100.2550 0.0-0.9 % Normal IM GRAN % 0.400 Result Comment: IG% - Immature Granulocytes (promyelocytes, myelocytes and metamyelocytes) > 1% indicates that a LEFT SHIFT is Present. LAB L100.2620 2.0-7.7 X10 3/uL High Absolute Neut 14.6 LAB L100.2720 0.83-4.51 X10 3/ul Normal Absolute Lymph 0.98 Performed By: #### L100.0100 #### [facility] [address] [place], [address] COMPREHENSIVE METABOLIC Collected: 11/11/2018 Status: F Source: [facility] 6:35 PM [facility] REPOSITORY TYPE CODE TESTS RESULT OUT OF RANGE REFERENCE UNITS LAB L501.0100 74-106 mg/dL High GLU 142 Result Comment: Fasting Glucose result greater than or equal to 126 mg/dL suggests DIABETES MELLITUS per A.D.A. criteria. Please note revised GLUCOSE reference range effective 2017. LAB L501.1000 7-18 mg/dL High BUN 22 LAB L501.1100 0.55-1.02 mg/dL High CREAT,SERUM 1.63 Result Comment: The validity of the calculated GFR AND GFRAA in patients over 70 years has not been determined. Clinical correlation is essential. LAB L501.1110 >60 mL/min Low EST GFR 33 Result Comment: Non- GFR Calc LAB L501.1115 >60 mL/min Low EST GFR - AA 40 Result Comment: GFR Calc LAB L501.1255 ml/min Normal Estimated CRCL 30.34 LAB L501.1300 10-20 RATIO Normal BUN/CRE 13.5 LAB L501.1500 6.4-8. g/dL High 2 T PROT 8.5 LAB L501.1800 3.2-5. g/dL Low 0 ALB 3.1 LAB L501.1950 2.2-4. g/dL High 2 GLOB 5.4 LAB L501.2000 0.9-2. RATIO Low 4 A/G 0.6 LAB L501.2200 8.5-10 mg/dL Normal .1 CA 8.9 LAB L501.4100 15-37 U/L Normal AST 17 Result Comment: Slight Hemolysis, Result may be falsely increased. LAB L501.4305 45-117 U/L Normal ALK P 58 LAB L501.4405 13-56 U/L Normal ALT 17 LAB L501.4600 0.20-1.00 mg/dL Normal T BILI 0.50 LAB L501.5300 136-145 mmol/L Low NA 133 LAB L501.5600 3.5-5.1 mmol/L Normal K 4.9 Result Comment: Slight Hemolysis, Result may be falsely increased. LAB L501.5900 98-107 mmol/L Low CL 96 LAB L501.6100 21.0-32.0 mmol/L Normal CO2 31.0 LAB L501.6200 5-15 Normal GAP 6 Performed By: #### L500.4050, L501.4010 #### [facility] [address] [place], [address] TROPONIN-I Collected: 11/11/2018 Status: F Source: BOIS D ARC 6:35 PM [facility] REPOS[facility]ORY TYPE CODE TESTS RESULT OUT OF RANGE REFERENCE UNITS LAB L501.4010 <0.045 ng/mL Normal < 0.015 TROPONIN-I Result Comment: TROPONIN-I EXPECTED VALUES <0.045 Negative 0.045 - 0.590 Consistent with Cardiac Damage > OR = 0.600 Critical Value Not every elevated troponin is indicative of MS. These values should be used with clinical judgement in examining the patient's clinical picture for diagnosis. To establish a diagnosis of MS versus myocardial injury, there must be a demonstrated rise and/or fall in the troponin values, in addition to ischemic symptoms, EKG changes, new regional wall motion abnormality, and/or angiographical evidence. PLEASE NOTE: REFERENCE RANGES EDITED 18 Performed By: #### L500.4050, L501.4010 #### [facility] [address] [place], [address] LACTIC ACID Collected: 11/11/2018 Status: F Source: BOIS D ARC 6:35 PM [facility] Order Comment: Yes/No query for Sepsis Lactate Rule Y TYPE CODE TESTS RESULT OUT OF REFERENCE UNITS RANGE LAB L503.6005 0.4-2.0 mmol/L High LACTIC ACID 3.1 Result Comment: Critical Result(s) Called at: 19:28:41 11/11/2018 by: NUZHAT GILBERT Performed By: #### L503.6005 #### [facility] [address] [place], [address] Observed: 11/11/2018 Status: F Source: BOIS D ARC CULTURE, BLOOD (WB) 6:35 PM [facility] RE[facility]ORY BC No growth in 5 days. Performed By: #### M200.1000 #### [facility] [address] [place], [address] CHEST 1 VIEW Observed: 11/11/2018 Status: F Source: ELLIS (PORTABLE) 6:28 PM [facility] REPOSITORY [facility] Imaging Services [address] [place] [address] Chest 1 View (Portable) MR#: [id number] Acct: [id number] Name: ISELA CAMARENA Rep #: [id number] : 1945 F 73 From: Dejon Luna MD PCP: Geraldine Valencia MD Status: REG ER Study: Chest 1 View (Portable) Date of Exam: 11/11/18 Exam# [id number] Ordering Dr: Jose Trotter MD STUDY: X-RAY CHEST REASON FOR EXAM: Female, 73 years old. Weakness. TECHNIQUE: Single frontal view of the chest. COMPARISON: October 31, 2018 FINDINGS: There is stable low volume inspiration. There is no demonstrated pleural abnormality. There is moderate cardiomegaly unchanged. Normal mediastinum and peace. Normal visualized pulmonary arteries. Normal visualized aortic arch and descending thoracic aorta. Normal visualized thoracic spine. Normal visualized ribs, clavicles, and shoulders. There is no demonstrated abnormality of the visualized soft tissue structures of the upper abdomen. RAD/Chest 1 View (Portable) IMPRESSION: Stable appearance of the chest with no new or acute finding. Electronically Signed: Dejon Luna MD at 19:30 EST , Service support , CC: Geraldine Valencia MD; Jose Trotter MD Habilitation Worker: Signed BASIC METABOLIC PANL Collected: 11/08/2018 Status: F Source: READER 4:00 PM [facility] REPOSITORY TYPE CODE TESTS RESULT OUT OF REFERENCE UNITS RANGE LAB GLU 74-99 mg/dL High Glucose 128 Result Comment: The [place] Diabetes Association (ADA) provides guidance for cutoff values for fasting glucose and random glucose. The ADA defines fasting as no caloric intake for at least 8 hours. Fas ting plasma glucose results between 100 to 125 mg/dL indicate increased risk for diabetes (prediabetes). Fasting plasma glucose results greater than or equal to 126 mg/dL meet the criteria for diagnosis of diabetes. In the absence of unequivocal hyperglycemia, results should be confirmed by repeat testing. In a patient with classic symptoms of hyperglycemia or hyperglycemic crisis, random plasma glucose results greater than or equal to 200 mg/dL meet the criteria for diagnosis of diabetes. Reference: Standards of Medical Care in Diabetes 2016, [place] Diabetes Association. Diabetes Care. 2016.39(Suppl 1). LAB BUN 7-21 mg/dL BUN 15 LAB CRET 0.58-0.96 mg/dL Creatinine High 1.17 LAB NA 136-144 mmol/L Sodium 141 LAB K 3.7-5.1 mmol/L Potassium 3.7 LAB CL 97-105 mmol/L Chloride 99 LAB CO2 22-30 mmol/L CO2 30 LAB AGAP 9-18 mmol/L Anion Gap 12 LAB CA 8.5-10.2 mg/dL Calcium, Total 9.0 LAB GFRAA eGFR- Amer. 55 LAB GFRNAA . eGFR-All Other Races 45 Result Comment: eGFR (Estimated GFR) Units of measure: mL/min/1.73 meters squared eGFR is derived from the reexpressed MDRD Study equation using the following parameters: serum creatinine, age, gender and race. The creatinine assay has been calibrated to be traceable to IDMS. An eGFR <60 mL/min/1.73m2 for >3 months is consistent with chronic kidney disease. Refer to KDOQI guidelines for clinical interpretation. In patients with unstable renal function, e.g. those with acute kidney injury, the eGFR may not accurately reflect actual GFR. Performed By: #### BMP, LIPNF, IRON, B12, SERFOL, HBA1C, CBCDIF #### [facility] [address] [place], [place] [address] LIPID PANEL, NONFAST Collected: 11/08/2018 Status: F Source: READER 4:00 PM [facility] REPOSITORY TYPE CODE TESTS RESULT OUT OF REFERENCE UNITS RANGE LAB CHOLNF <200 mg/dL Total Cholesterol NF 126 Result Comment: <200 mg/dL, Desirable 200-239 mg/dL, Borderline high >239 mg/dL, High LAB TRIGNF <150 mg/dL Triglycerides, NF High 308 Result Comment: <150 mg/dL, Normal 150-199 mg/dL, Borderline high 200-499 mg/dL, High >499 mg/dL, Very high LAB HDLNF >39 mg/dL HDL Cholesterol, NF Low 27 Result Comment: 40-59 mg/dL, Acceptable >59 mg/dL, High: Negative risk factor for coronary heart disease <40 mg/dL, Low: Positive risk factor for coronary heart disease LAB LDLNF <100 mg/dL LDL Cholesterol, NF 37 Result Comment: <100 mg/dL, Optimal 100-129 mg/dL, Near optimal/above optimal 130-159 mg/dL, Borderline high 160-189 mg/dL, High >189 mg/dL, Very high Secondary prevention optimal LDL Cholesterol levels are recommended to be < 70 mg/dL LAB NOHDLN <130 mg/dL Non HDL Chol, 99 NF Result Comment: <130 mg/dL, Optimal 130-159 mg/dL, Near optimal/above optimal 160-189 mg/dL, Borderline high 190-219 mg/dL, High >219 mg/dL, Very high Secondary prevention optimal non HDL Cholesterol levels are recommended to be < 100 mg/dL LAB VLDLNF <30 mg/dL VLDL Cholesterol, High NF 62 LAB TCHDLN <5.10 mg/dL T Chol/HDL Ratio NF 4.67 LAB LDLHDN <2.54 mg/dL LDL/HDL Ratio, NF 1.37 Result Comment: Reference: 1. National Cholesterol Education Program ATP III Guideline At-A-Glance Quick Desk Reference: National Heart, Lung, and Blood [place]. National Institutes of Health. 2001: NIH Publication No. 01-3305. 2. An International Atherosclerosis Society position paper: global recommendations for the management of dyslipidemia: executive summary, Atherosclerosis. 2014: 232(2):410-413. Performed By: #### BMP, LIPNF, IRON, B12, SERFOL, HBA1C, CBCDIF #### [address] [place], [place] [address] IRON AND TIBC Collected: 11/08/2018 Status: F Source: READER 4:00 PM [facility] REPOSITORY TYPE CODE TESTS RESULT OUT OF REFERENCE UNITS RANGE LAB IRN 41-186 ug/dL Iron 54 LAB TIBC 232-386 ug/dL TIBC 254 LAB SAT 15-57 % Transferrin Saturatn 21 Performed By: #### BMP, LIPNF, IRON, B12, SERFOL, HBA1C, CBCDIF #### [facility] [address] [place], [place] [address] VITAMIN B12 Collected: 11/08/2018 Status: F Source: READER 4:00 PM [facility] REPOSITORY TYPE CODE TESTS RESULT OUT OF REFERENCE UNITS RANGE LAB B12 232-1245 pg/mL High Vitamin B12 1703 Performed By: #### BMP, LIPNF, IRON, B12, SERFOL, HBA1C, CBCDIF #### [facility] [address] [place], [place] [address] FOLATE, SERUM Collected: 11/08/2018 Status: F Source: READER 4:00 [facility] REPOSITORY TYPE CODE TESTS RESULT OUT OF REFERENCE UNITS RANGE LAB SERFOL >4.7 ng/mL Folate, 4.9 Serum Performed By: #### BMP, LIPNF, IRON, B12, SERFOL, HBA1C, CBCDIF #### [facility] [address] [place], [place] [address] HEMOGLOBIN A1C Collected: 11/08/2018 Status: F Source: READER 4:00 [facility] REPOSITORY TYPE CODE TESTS RESULT OUT OF REFERENCE UNITS RANGE LAB HGBA1C 4.3-5.6 % High Hemoglobin A1c 6.1 Result Comment: [place] Diabetes Association guidelines indicate that patients with HgbA1c in the range 5.7-6.4% are at increased risk for development of diabetes, and intervention by lifestyle modification may be beneficial. HgbA1c greater or equal to 6.5% is considered diagnostic of diabetes. LAB HBA0 mg/dL Est. Average Glucose 128 Result Comment: eAG: (Estimated average glucose) is a calculated value from HgbA1c and is title insurance sales representative of the average blood glucose level in the last 2-3 month period. Performed By: #### BMP, LIPNF, IRON, B12, SERFOL, HBA1C, CBCDIF #### [facility] [address] [place], [place] [address] CBC AND DIFFERENTIAL Collected: 11/08/2018 Status: F Source: READER 4:00 [facility] REPOSITORY TYPE CODE TESTS RESULT OUT OF REFERENCE UNITS RANGE LAB WBC 3.70-11.00 k/uL WBC 8.82 LAB RBC 3.90-5.20 m/uL RBC Low 3.54 LAB HGB 11.5-15.5 g/dL Hemoglobin Low 10.1 LAB HCT 36.0-46.0 % Hematocrit Low 33.2 LAB MCV 80.0-100.0 fL MCV 93.8 LAB MCH 26.0-34.0 pG MCH 28.5 LAB MCHC 30.5-36.0 g/dL MCHC Low 30.4 LAB RDWCV 11.5-15.0 % RDW-CV High 16.6 LAB PLTCT 150-400 k/uL Platelet Count 352 LAB MPV 9.0-12.7 fL MPV 10.5 LAB ANEUT % Neut% 73.9 LAB AANEUT 1.45-7.50 k/uL Abs Neut 6.52 LAB ALYMP % Lymph% 14.8 LAB AALYMP 1.00-4.00 k/uL Abs Lymph 1.31 LAB AMONO % [place]% 5.2 LAB AAMONO <0.87 k/uL Abs [place] 0.46 LAB AEOS % Eosin% 2.6 LAB AAEOS <0.46 k/uL Abs Eosin 0.23 LAB ABASO % Baso% 0.9 LAB AABASO <0.11 k/uL Abs Baso 0.08 LAB AMETA % Plessis% 0.9 LAB AMYELO % Myelo% 1.7 LAB ANIIMI Anisocytosis Present LAB LFTIMI Left Shift Present LAB POLIMI Polychromasia Slight LAB PLTEST Platelet Estimate Platelet estimate adequate LAB DTYP DTYPE Manual Diff Performed By: #### BMP, LIPNF, IRON, B12, SERFOL, HBA1C, CBCDIF #### [facility] [address] [place], [place] [address] PROGRESS Observed: 11/08/2018 Status: COMPLETED Source: READER 3:23 PM [facility] REPOSITORY HNO ID: [id number] Author: Jessica Woodson Service: (none) Author Type: Physician Shift Mgr Type: Progress Notes Filed: 11/09/2018 8:23 AM Note Text: Chief Complaint Patient presents with: Hospital F/U: patient is here for hospital follow up HPI Isela Camarena is a 73 year old female who presents here today for Hospital Discharge Follow up.. Patient was taken to the ER on 10/30/18 and was admitted into hospital with Dx of Sepsis secondary to acute cystitis, Acute metabolic encephalopathy , and Acute Kidney injury. While in the hospital she went into SVT but was converted back to sinus rhythm with adenosine. Patient has suprapubic catheter On discharge patient had significant improvement in lab values and status. She currently has home health and home therapy. May only be needing Occupational Therapy. They have not come to the house yet. No specific concerns today. Past medical history, appointments, medications, allergies reviewed. Previous Medical History PAST MEDICAL HISTORY Diagnosis Date - Diabetes 1.5, managed as type 1 (HCC) - Fracture 03/2012 left femur break - Hypertension - Morbid obesity (HCC) - Obesity, unspecified - Obstructive sleep apnea - Osteoarthrosis, unspecified whether generalized or localized, other specified sites - PMH - PAST MEDICAL HISTORY OF desmorphic metabolic syndrome - Sacroiliitis, not elsewhere classified (HCC) - Septicemia ([facility]) 10/2010 with resp and renal failure requiring METAL TEMPERER. - Spinal stenosis, other than cervical - Suprapubic catheter ([facility]) - Unspecified essential hypertension - Unspecified urinary incontinence - Unspecified vitamin D deficiency 01/22/2009 Previous Surgical History PAST SURGICAL HISTORY Procedure Laterality Date - APPENDECTOMY 1957 - PAST SURGICAL HISTORY OF lt knee cartilage repair surgery - PAST SURGICAL HISTORY OF 2010 suprapubic catheter insertion - REMOVAL GALLBLADDER 1993 - TOTAL ABDOM HYSTERECTOMY 1993 Family History FAMILY HISTORY Problem Relation Age of Onset - Coronary Artery Disease Father - Hypertension Father - Hypertension Mother - Hypertension Sister - Lipids Father - Diabetes Father - Diabetes Paternal Grandmother Patient Allergies ALLERGIES Allergen Reactions - Iron Other: See Comments From IV form; heart palpitations, chest pressure - Adhesive Tape (Adelita* Blisters - Influenza Virus Vac* Shortness of Breath severe wheezing - Seasonal Allergies * - Sulfa (Sulfonamide * Shortness of Breath Bactrim does not work for her - Mobic [Meloxicam] GI Upset Current Medications Current Outpatient Prescriptions on File Prior to Visit: albuterol HFA (VENTOLIN HFA) 90 mcg/actuation inhaler Inhale 2 Puffs as instructed every 4 hours as needed for Wheezing/Shortness of Breath. alpha tocopheryl acetate (VITAMIN E) 400 unit capsule Take 1 capsule by mouth twice daily. baclofen 10 mg tablet Take 1 tablet by mouth three times daily as needed (muscle spasms). blood sugar diagnostic (GLUCOCARD VITAL SENSOR) test strip Use as instructed blood sugar diagnostic(PRECISION XTRA TEST STRIPS) Test blood sugars once daily and as needed 277.7 Cholecalciferol, Vitamin D3, (VITAMIN D) 1,000 unit cap Take 1 capsule by mouth once daily. ciprofloxacin HCl (CIPRO) 500 mg tablet Take 1 tablet by mouth twice daily. As directed around SP tube changes. COMPOUNDED PRESCRIPTION Split Gauze pads 4x4Dx: Urinary retention 788.20 COMPOUNDED PRESCRIPTION Suprapubic Irrigating kitDx: Urinary retention 788.20 COMPOUNDED PRESCRIPTION Urinary night bags [employer]. 2000mlDx: Urinary retention 788.20 cyanocobalamin (VITAMIN B-12) 1,000 mcg tab Take 1 tablet by mouth once daily. diphenhydrAMINE (BENADRYL) 25 mg capsule Take 25 mg by mouth twice daily. diphenoxylate-atropine (LOMOTIL) 2.5-0.025 mg per tablet Take 1 tablet by mouth four times daily as needed for Diarrhea. fluticasone (FLONASE) 50 mcg/actuation nasal spray Use 2 Sprays in each nostril once daily. furosemide (LASIX) 20 mg tablet Take 1 tablet by mouth three times daily. gabapentin (NEURONTIN) 300 mg capsule Takes 900 in the morning, 1200 at lunch, 900 at supper and 1300 at bed times HYDROcodone-acetaminophen (NORCO) 5-325 mg per tablet Take 1 tablet by mouth every 6 hours as needed for up to 30 days.Earliest Fill Date: 07/30/18 levETIRAcetam (KEPPRA) 500 mg tablet Take 500 mg by mouth once daily. lisinopril (PRINIVIL) 10 mg tablet Take 1 tablet by mouth once daily. metFORMIN (GLUCOPHAGE) 500 mg tablet Take 1 tablet by mouth twice daily with meals. metoprolol succinate ER (TOPROL XL) 25 mg 24 hr tablet Take 1 tablet by mouth once daily. multivitamin with minerals (VISION/OPTIGEN) tablet Take 1 tablet by mouth four times daily. mupirocin (BACTROBAN) 2 % ointment Apply 1 application to affected area twice daily. nitrofurantoin monohydrate and macrocrystal (MACROBID) 100 mg capsule Take 1 capsule by mouth once daily. nystatin (MYCOSTATIN) powder Apply 1 application to affected area twice daily. As needed for yeast infection to fold areas. oxybutynin ER (DITROPAN XL) 15 mg 24 hr Extended Rel Tab Take 1 tablet by mouth once daily. oxyCODONE-acetaminophen (PERCOCET) 5-[address] (PROTONIX) 40 mg tablet Take 1 tablet by mouth once daily. Potassium 99 mg tab Take 1 tablet by mouth once daily. pravastatin (PRAVACHOL) 20 mg tablet Take 1 tablet by mouth daily at bedtime. Sodium Chloride 0.9 % soln To use for catheter irrigation 3 times daily or as needed. (6 of the 500ml bottles)Dx: Urinary retention 788.20 syringe (BD SYRINGE) 60 mL Syrg Use daily as directed. Dx: v44.59 venlafaxine (EFFEXOR) 75 mg tablet Take 1 tablet by mouth three times daily. Catheter 24 Fr misc 24 FR SILVER henry catheter with 30ml balloon. BARDEX #[id number] To change in office or via home health once every 4-6 weeks. Urinary retention R33.9 Cranberry-Vitamin C-Vitamin E (CRANBERRY CONCENTRATE) 140- 100 mg cap Take 140 mg by mouth twice daily. guaiFENesin (MUCINEX) 600 mg 12 hr tablet Take 2 tablets by mouth twice daily. ranitidine (ZANTAC) 150 mg tablet Take 1 tablet by mouth twice daily. triamcinolone (KENALOG IN ORABASE) 0.1 % paste 1 application by DENTAL route four times daily. No current facility-administered medications on file prior to visit. 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 Social History Main Topics Smoking status: Never Smoker Smokeless tobacco: Never Used Alcohol use: No Drug use: No Review of Symptoms REVIEW OF SYSTEMS GENERAL: No weight loss, malaise or fevers NECK: Negative for lumps, goiter, pain and significant neck swelling RESPIRATORY: Negative for cough, hemoptysis, wheezing, COPD, dyspnea or shortness of breath CARDIOVASCULAR: Negative for chest pain, leg swelling, CHF or worsening palpitations : No history of dysuria, frequency or incontinence EXAM: BP 128/68 (BP Site: Left Arm, BP Position: Sitting, BP Cuff Size: Large Adult) Pulse 84 Temp 36.9 ?C (98.4 ?F) (Tympanic) Resp 14 General Appearance: Well appearing, alert, in no acute distress, well-hydrated, well nourished., Morbidly obese and Wheelchair. Neck: Supple, no adenopathy; thyroid symmetric, normal size, no bruits. Lungs: lungs clear to auscultation. No wheezing, rhonchi, rales. Heart: RRR without murmur, gallop, or rubs. No ectopy. Extremities: mild b/l edema. No deformities, skin discoloration, clubbing or cyanosis. Good capillary refill. . Peripheral Pulses: Normal. Health Maintenance List DILATED RETINAL EXAM due on 1956 DIABETIC FOOT EXAM due on 1955 FECAL OCCULT BLOOD due on 02/27/2014 LDL CHOLESTEROL due on 08/04/2018 HBA1C due on 09/23/2018 STATIN MED ADHERENCE due on 11/13/2018 DIABETES MED ADHERENCE due on 11/13/2018 URINE ALBUMIN:CREATININE RATIO due on 03/23/2019 ANNUAL PCP TEAM CHRONIC DISEASE VISIT due on 07/30/2019 BP CONTROLLED (<130/80) due on 07/30/2019 MAMMOGRAM due on 08/20/2019 BONE DENSITY Completed ADULT PREVNAR-13 Completed HEPATITIS C SCREENING Completed PNEUMOVAX AGE 65 AND OVER WITH 5YR LOOKBACK Completed Data reviewed See scanned ER documents. Labs + for anemia and elevated creatinine. ASSESSMENT/PLAN: 1. MICHAELLE (acute kidney injury) (HCC) - ICD9: 584.9, ICD10: N17.9 (primary diagnosis) Recheck labs Hydration - BASIC METABOLIC PNL 2. Anemia, unspecified type - ICD9: 285.9, ICD10: D64.9 Recheck CBC Recommend vitamin - CBC + DIFF - IRON + TIBC - FOLATE SERUM - VITAMIN B12 BLOOD 3. Sepsis, due to unspecified organism (HCC) - ICD9: 038.9, 995.91, ICD10: A41.9 Resolved Recheck WBC - CBC + DIFF 4. Acute cystitis with hematuria - ICD9: 595.0, ICD10: N30.01 Improved. Continue to monitor given patient high risk for infection secondary to suprapubic cath 5. Controlled type 2 diabetes mellitus without complication, without long-term current use of insulin (HCC) - ICD9: 250.00, ICD10: E11.9 Controlled. - Continue current medications - HGB A1C 6. Encounter for lipid screening for cardiovascular disease - ICD9: V77.91, V81.2, ICD10: Z13.220, Z13.6 Check lipids - LIPID PANEL, NONFASTING Patient to follow up for routine visit with PCP team in 1- 2 months. Discussed possible red flags and when to seek medical attention. JENNIFER LOZANO Observed: 11/08/2018 Status: COMPLETED Source: READER 3:00 PM [facility] REPOSITORY Office Visit (FAMPWS) ISELA CAMARENA ([id number]) 1945 F Date Time Provider Department 11/08/18 3:00 PM SEAN WOODSON) TOI During your visit today, we recorded the following information about you: Temperature Pulse Respiration Blood pressure 98.4 degrees 84/minute 14/minute 128/68 JUSTIN WOODSON PA-C 11/09/2018 8:23 AM Signed Chief Complaint Patient presents with: Hospital F/U: patient is here for hospital follow up HPI Isela Camarena is a 73 year old female who presents here today for Hospital Discharge Follow up.. Patient was taken to the ER on 10/30/18 and was admitted into hospital with Dx of Sepsis secondary to acute cystitis, Acute metabolic encephalopathy , and Acute Kidney injury. While in the hospital she went into SVT but was converted back to sinus rhythm with adenosine. Patient has suprapubic catheter On discharge patient had significant improvement in lab values and status. She currently has home health and home therapy. May only be needing Occupational Therapy. They have not come to the house yet. No specific concerns today. Past medical history, appointments, medications, allergies reviewed. Previous Medical History PAST MEDICAL HISTORY Diagnosis Date - Diabetes 1.5, managed as type 1 (HCC) - Fracture 03/2012 left femur break - Hypertension - Morbid obesity (HCC) - Obesity, unspecified - Obstructive sleep apnea - Osteoarthrosis, unspecified whether generalized or localized, other specified sites - PMH - PAST MEDICAL HISTORY OF desmorphic metabolic syndrome - Sacroiliitis, not elsewhere classified (HCC) - Septicemia ([facility]) 10/2010 with resp and renal failure requiring METAL TEMPERER. - Spinal stenosis, other than cervical - Suprapubic catheter ([facility]) - Unspecified essential hypertension - Unspecified urinary incontinence - Unspecified vitamin D deficiency 01/22/2009 Previous Surgical History PAST SURGICAL HISTORY Procedure Laterality Date - APPENDECTOMY 1957 - PAST SURGICAL HISTORY OF lt knee cartilage repair surgery - PAST SURGICAL HISTORY OF 2010 suprapubic catheter insertion - REMOVAL GALLBLADDER 1993 - TOTAL ABDOM HYSTERECTOMY 1993 Family History FAMILY HISTORY Problem Relation Age of Onset - Coronary Artery Disease Father - Hypertension Father - Hypertension Mother - Hypertension Sister - Lipids Father - Diabetes Father - Diabetes Paternal Grandmother Patient Allergies ALLERGIES Allergen Reactions - Iron Other: See Comments From IV form; heart palpitations, chest pressure - Adhesive Tape (Adelita* Blisters - Influenza Virus Vac* Shortness of Breath severe wheezing - Seasonal Allergies * - Sulfa (Sulfonamide * Shortness of Breath Bactrim does not work for her - Mobic [Meloxicam] GI Upset Current Medications Current Outpatient Prescriptions on File Prior to Visit: albuterol HFA (VENTOLIN HFA) 90 mcg/actuation inhaler Inhale 2 Puffs as instructed every 4 hours as needed for Wheezing/Shortness of Breath. alpha tocopheryl acetate (VITAMIN E) 400 unit capsule Take 1 capsule by mouth twice daily. baclofen 10 mg tablet Take 1 tablet by mouth three times daily as needed (muscle spasms). blood sugar diagnostic (GLUCOCARD VITAL SENSOR) test strip Use as instructed blood sugar diagnostic(PRECISION XTRA TEST STRIPS) Test blood sugars once daily and as needed 277.7 Cholecalciferol, Vitamin D3, (VITAMIN D) 1,000 unit cap Take 1 capsule by mouth once daily. ciprofloxacin HCl (CIPRO) 500 mg tablet Take 1 tablet by mouth twice daily. As directed around SP tube changes. COMPOUNDED PRESCRIPTION Split Gauze pads 4x4Dx: Urinary retention 788.20 COMPOUNDED PRESCRIPTION Suprapubic Irrigating kitDx: Urinary retention 788.20 COMPOUNDED PRESCRIPTION Urinary night bags SADIQ AMBER BRAND. 2000mlDx: Urinary retention 788.20 cyanocobalamin (VITAMIN B-12) 1,000 mcg tab Take 1 tablet by mouth once daily. diphenhydrAMINE (BENADRYL) 25 mg capsule Take 25 mg by mouth twice daily. diphenoxylate-atropine (LOMOTIL) 2.5-0.025 mg per tablet Take 1 tablet by mouth four times daily as needed for Diarrhea. fluticasone (FLONASE) 50 mcg/actuation nasal spray Use 2 Sprays in each nostril once daily. furosemide (LASIX) 20 mg tablet Take 1 tablet by mouth three times daily. gabapentin (NEURONTIN) 300 mg capsule Takes 900 in the morning, 1200 at lunch, 900 at supper and 1300 at bed times HYDROcodone-acetaminophen (NORCO) 5-325 mg per tablet Take 1 tablet by mouth every 6 hours as needed for up to 30 days.Earliest Fill Date: 07/30/18 levETIRAcetam (KEPPRA) 500 mg tablet Take 500 mg by mouth once daily. lisinopril (PRINIVIL) 10 mg tablet Take 1 tablet by mouth once daily. metFORMIN (GLUCOPHAGE) 500 mg tablet Take 1 tablet by mouth twice daily with meals. metoprolol succinate ER (TOPROL XL) 25 mg 24 hr tablet Take 1 tablet by mouth once daily. multivitamin with minerals (VISION/OPTIGEN) tablet Take 1 tablet by mouth four times daily. mupirocin (BACTROBAN) 2 % ointment Apply 1 application to affected area twice daily. nitrofurantoin monohydrate and macrocrystal (MACROBID) 100 mg capsule Take 1 capsule by mouth once daily. nystatin (MYCOSTATIN) powder Apply 1 application to affected area twice daily. As needed for yeast infection to fold areas. oxybutynin ER (DITROPAN XL) 15 mg 24 hr Extended Rel Tab Take 1 tablet by mouth once daily. oxyCODONE-acetaminophen (PERCOCET) 5-[address] (PROTONIX) 40 mg tablet Take 1 tablet by mouth once daily. Potassium 99 mg tab Take 1 tablet by mouth once daily. pravastatin (PRAVACHOL) 20 mg tablet Take 1 tablet by mouth daily at bedtime. Sodium Chloride 0.9 % soln To use for catheter irrigation 3 times daily or as needed. (6 of the 500ml bottles)Dx: Urinary retention 788.20 syringe (BD SYRINGE) 60 mL Syrg Use daily as directed. Dx: v44.59 venlafaxine (EFFEXOR) 75 mg tablet Take 1 tablet by mouth three times daily. Catheter 24 Fr misc 24 FR SILVER henry catheter with 30ml balloon. BARDEX #[id number] To change in office or via home health once every 4-6 weeks. Urinary retention R33.9 Cranberry-Vitamin C-Vitamin E (CRANBERRY CONCENTRATE) 140- 100 mg cap Take 140 mg by mouth twice daily. guaiFENesin (MUCINEX) 600 mg 12 hr tablet Take 2 tablets by mouth twice daily. ranitidine (ZANTAC) 150 mg tablet Take 1 tablet by mouth twice daily. triamcinolone (KENALOG IN ORABASE) 0.1 % paste 1 application by DENTAL route four times daily. No current facility-administered medications on file prior to visit. 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 Social History Main Topics Smoking status: Never Smoker Smokeless tobacco: Never Used Alcohol use: No Drug use: No Review of Symptoms REVIEW OF SYSTEMS GENERAL: No weight loss, malaise or fevers NECK: Negative for lumps, goiter, pain and significant neck swelling RESPIRATORY: Negative for cough, hemoptysis, wheezing, COPD, dyspnea or shortness of breath CARDIOVASCULAR: Negative for chest pain, leg swelling, CHF or worsening palpitations : No history of dysuria, frequency or incontinence EXAM: BP 128/68 (BP Site: Left Arm, BP Position: Sitting, BP Cuff Size: Large Adult) Pulse 84 Temp 36.9 ?C (98.4 ?F) (Tympanic) Resp 14 General Appearance: Well appearing, alert, in no acute distress, well-hydrated, well nourished., Morbidly obese and Wheelchair. Neck: Supple, no adenopathy; thyroid symmetric, normal size, no bruits. Lungs: lungs clear to auscultation. No wheezing, rhonchi, rales. Heart: RRR without murmur, gallop, or rubs. No ectopy. Extremities: mild b/l edema. No deformities, skin discoloration, clubbing or cyanosis. Good capillary refill. . Peripheral Pulses: Normal. Health Maintenance List DILATED RETINAL EXAM due on 1956 DIABETIC FOOT EXAM due on 1956 FECAL OCCULT BLOOD due on 02/27/2014 LDL CHOLESTEROL due on 08/04/2018 HBA1C due on 09/23/2018 STATIN MED ADHERENCE due on 11/13/2018 DIABETES MED ADHERENCE due on 11/13/2018 URINE ALBUMIN:CREATININE RATIO due on 03/23/2019 ANNUAL PCP TEAM CHRONIC DISEASE VISIT due on 07/30/2019 BP CONTROLLED (<130/80) due on 07/30/2019 MAMMOGRAM due on 08/20/2019 BONE DENSITY Completed ADULT PREVNAR-13 Completed HEPATITIS C SCREENING Completed PNEUMOVAX AGE 65 AND OVER WITH 5YR LOOKBACK Completed Data reviewed See scanned ER documents. Labs + for anemia and elevated creatinine. ASSESSMENT/PLAN: 1. MICHAELLE (acute kidney injury) (HCC) - ICD9: 584.9, ICD10: N17.9 (primary diagnosis) Recheck labs Hydration - BASIC METABOLIC PNL 2. Anemia, unspecified type - ICD9: 285.9, ICD10: D64.9 Recheck CBC Recommend vitamin - CBC + DIFF - IRON + TIBC - FOLATE SERUM - VITAMIN B12 BLOOD 3. Sepsis, due to unspecified organism (HCC) - ICD9: 038.9, 995.91, ICD10: A41.9 Resolved Recheck WBC - CBC + DIFF 4. Acute cystitis with hematuria - ICD9: 595.0, ICD10: N30.01 Improved. Continue to monitor given patient high risk for infection secondary to suprapubic cath 5. Controlled type 2 diabetes mellitus without complication, without long-term current use of insulin (HCC) - ICD9: 250.00, ICD10: E11.9 Controlled. - Continue current medications - HGB A1C 6. Encounter for lipid screening for cardiovascular disease - ICD9: V77.91, V81.2, ICD10: Z13.220, Z13.6 Check lipids - LIPID PANEL, NONFASTING Patient to follow up for routine visit with PCP team in 1- 2 months. Discussed possible red flags and when to seek medical attention. JUSTIN WOODSON PA-C Referring Provider: SELF [[id number]] Allergies As of Date: 11/08/2018 Noted Allergy Reaction IRON 03/06/2013 14 - Other: See Comments Comments: From IV form; heart palpitations, chest pressure ADHESIVE TAPE (ROSINS) 10/19/2006 Comments: Blisters INFLUENZA VIRUS VACCINES 09/04/2012 12 - Shortness of Breath Comments: severe wheezing seasonal allergies [Other] 04/17/2006 SULFA (SULFONAMIDE ANTIBIOTICS) 07/11/2005 12 - Shortness of Breath Comments: Bactrim does not work for her MOBIC (MELOXICAM) 07/20/2006 8 - GI Upset Date Reviewed: 11/08/2018 Reviewed by: Estela Veliz Ma - Fully Assessed Reason for Visit: Hospital F/U [57] Cmt: patient is here for hospital follow up Primary Visit Diagnosis:MICHAELLE (acute kidney injury) (HCC) [N17.9] Other Visit Diagnoses:Anemia, unspecified type [D64.9] Sepsis, due to unspecified organism (HCC) [A41.9] Acute cystitis with hematuria [N30.01] Controlled type 2 diabetes mellitus without complication, without long-term current use of insulin (HCC) [E11.9] Encounter for lipid screening for cardiovascular disease [Z13.220, Z13.6] Order(s):CBC + DIFF [SQCBCDIF] Order #: [id number] FUTURE HGB A1C [NRVWF8S] Order #: [id number] FUTURE LIPID PANEL, NONFASTING [SQLIPNF] Order #: [id number] FUTURE BASIC METABOLIC PNL [SQBMP] Order #: [id number] FUTURE IRON + TIBC [SQIRON] Order #: [id number] FUTURE FOLATE SERUM [SQSERFOL] Order #: [id number] FUTURE VITAMIN B12 BLOOD [SQB12] Order #: [id number] FUTURE Prescriptions as of 11/08/2018 Sig: ALBUTEROL SULFATE HFA 90 MCG/* Inhale 2 Puffs as instructed * VITAMIN E 400 UNIT CAPSULE Take 1 capsule by mouth twice* BACLOFEN 10 MG TABLET Take 1 tablet by mouth three * BLOOD SUGAR DIAGNOSTIC STRIPS Use as instructed PRECISION XTRA TEST STRIPS Test blood sugars once daily * CHOLECALCIFEROL (VITAMIN D3) * Take 1 capsule by mouth once * CIPROFLOXACIN 500 MG TABLET Take 1 tablet by mouth twice * COMPOUNDED PRESCRIPTION Split Gauze pads 4x4 Dx: U* COMPOUNDED PRESCRIPTION Suprapubic Irrigating kit * COMPOUNDED PRESCRIPTION Urinary night bags SADIQ KEND* CYANOCOBALAMIN (VIT B-12) 1,0* Take 1 tablet by mouth once d* DIPHENHYDRAMINE 25 MG CAPSULE Take 25 mg by mouth twice cora* DIPHENOXYLATE-ATROPINE 2.5 MG* Take 1 tablet by mouth four t* FLUTICASONE 50 MCG/ACTUATION * Use 2 Sprays in each nostril * FUROSEMIDE 20 MG TABLET Take 1 tablet by mouth three * GABAPENTIN 300 MG CAPSULE Takes 900 in the morning, 120* HYDROCODONE 5 MG-ACETAMINOPHE* Take 1 tablet by mouth every * LEVETIRACETAM 500 MG TABLET Take 500 mg by mouth once cora* LISINOPRIL 10 MG TABLET Take 1 tablet by mouth once d* METFORMIN 500 MG TABLET Take 1 tablet by mouth twice * METOPROLOL SUCCINATE ER 25 MG* Take 1 tablet by mouth once d* MULTIVITAMIN WITH MINERALS TA* Take 1 tablet by mouth four t* MUPIROCIN 2 % TOPICAL OINTMENT Apply 1 application to affect* NITROFURANTOIN MONOHYDRATE AND * Take 1 capsule by mouth once * NYSTATIN 100,000 UNIT/GRAM TO* Apply 1 application to affect* OXYBUTYNIN CHLORIDE ER 15 MG * Take 1 tablet by mouth once d* OXYCODONE-ACETAMINOPHEN 5 MG-* PANTOPRAZOLE 40 MG TABLET,DEL* Take 1 tablet by mouth once d* POTASSIUM 99 MG TABLET Take 1 tablet by mouth once d* PRAVASTATIN 20 MG TABLET Take 1 tablet by mouth daily * SODIUM CHLORIDE 0.9 % SOLUTION To use for catheter irrigatio* SYRINGE (DISPOSABLE) 60 ML Use daily as directed. Dx: v* VENLAFAXINE 75 MG TABLET Take 1 tablet by mouth three * CATHETER 24 FR 24 FR SILVER henry catheter w* CRANBERRY CONCENTRATE-ASCORBI* Take 140 mg by mouth twice da* RANITIDINE 150 MG TABLET Take 1 tablet by mouth twice * TRIAMCINOLONE ACETONIDE 0.1 %* 1 application by DENTAL route* Problem List As Of Date 11/08/2018 Noted Resolved Essential hypertension [I10] More... DEPRESSIVE DISORDER NEC [F32.9] SACROILIITIS NEC [M46.1] INTERNAL DERANGEMENT KNEE-CHRONIC CHONDROMALACI*INVALID FOR* DYSMETABOLIC SYNDROME X [E88.81] INVALID FOR* Spinal stenosis, lumbar region, without neuroge*INVALID FOR*10/24/2016 MORBID OBESITY [E66.01] INVALID FOR* More... VITAMIN D DEFICIENCY NOS [E55.9] INVALID FOR* More... Knee fracture, left [FTF0810] INVALID FOR* More... Septic shock [A41.9, R65.21] INVALID FOR* Suprapubic catheter [Z93.59] INVALID FOR* More... Lower urinary tract infectious disease [N39.0] INVALID FOR* Hematuria [R31.9] INVALID FOR* Urinary retention [R33.9] INVALID FOR* Polypharmacy [Z79.899] INVALID FOR* Controlled substance agreement signed [Z79.899] INVALID FOR* Chronic pain [G89.29] INVALID FOR* Kidney stone [N20.0] INVALID FOR* Degenerative arthritis of knee, bilateral [M17.*INVALID FOR* Shoulder capsulitis [M75.80] INVALID FOR* Chronic pain syndrome [G89.4] INVALID FOR* Chronic midline low back pain with bilateral sc*INVALID FOR* Spinal stenosis, lumbar region, with neurogenic*INVALID FOR* Decubitus skin ulcer [L89.90] INVALID FOR* Decubitus ulcer, stage 2 [L89.92] INVALID FOR* Controlled type 2 diabetes mellitus without com*INVALID FOR* More... Sacral decubitus ulcer [L89.159] INVALID FOR*03/28/2018 Decubitus ulcer of right perineal ischial regio*INVALID FOR*03/28/2018 Medications Discontinued During This Encounter guaiFENesin (MUCINEX) 600 mg 12 hr t* 30 t* 0 03/08/2017 11/08/2018 Route: ORAL Sig: Take 2 tablets by mouth twice daily. Disc: Reason for discontinue is not on file. Follow-up and Disposition History Recorded Encounter Status:Closed by JUSTIN HEARN on 11/09/18 12 LEAD ELECTROCARDIOGRAM Observed: 11/02/2018 Status: F Source: [place] 2:20 PM [facility] REPOS[facility] Cardiovascular Services [address] [place] [id number] 12 Lead EKG 10/30/18 2219 MR#: [id number] Acct: [id number] Name: ISELA CAMARENA Rep #: [id number] : 1945 73 From: Pablo Aquino MD Attending Dr: Abad Barton MD Status: DIS IN Ordering Dr: Wagner Tineo MD Date: 10/30/18 Location: U Sex: F C Admitted: 10/30/18 Test Reason : SVT Blood Pressure : / mmHG Vent. Rate : 093 BPM Atrial Rate : 093 BPM P-R Int : 168 ms QRS Dur : 080 ms QT Int : 360 ms P-R-T Axes : -24 024 038 degrees QTc Int : 447 ms Normal sinus rhythm Low voltage QRS Borderline ECG When compared with ECG of 30-OCT-2018 22:15, MANUAL COMPARISON REQUIRED, DATA IS UNCONFIRMED Confirmed by KENIA THOMPSON, PABLO ([id number]), avid editor JAMI TOLENTINO ([id number]) on 11/02/2018 2:20:19 PM Referred By: Colby Roland Confirmed By:PABLO AQUINO MD 11/02/181419 Date Pablo Aquino MD CC: Geraldine Valencia MD; Abad Barton MD; Colby Roland DO; Wagner Tineo MD Signed 12 LEAD ELECTROCARDIOGRAM Observed: 11/02/2018 Status: F Source: [place] 2:20 PM [facility]POS[facility] Cardiovascular Services [address] [place] [address] 12 Lead EKG 10/30/18 2215 MR#: [id number] Acct: [id number] Name: IESLA CAMARENA Rep #: [id number] : 1945 73 From: Pablo Aquino MD Attending Dr: Abad Barton MD Status: DIS IN Ordering Dr: Vickie Muse MD Date: 10/30/18 Location: [facility] Sex: F C Admitted: 10/30/18 Test Reason : SVT Blood Pressure : / mmHG Vent. Rate : 176 BPM Atrial Rate : 174 BPM P-R Int : 000 ms QRS Dur : 094 ms QT Int : 270 ms P-R-T Axes : 000 127 193 degrees QTc Int : 462 ms Supraventricular tachycardia Left posterior fascicular block Anterior infarct , age undetermined Abnormal ECG When compared with ECG of 30-OCT-2018 16:45, MANUAL COMPARISON REQUIRED, DATA IS UNCONFIRMED Confirmed by PABLO AQUINO MD ([id number]), avid editor JAMI TOLENTINO ([id number]) on 11/02/2018 2:20:34 PM Referred By: Colby Roland Confirmed By:PABLO AQUINO MD 11/02/181419 Date Pablo Aquino MD CC: Geraldine Valencia MD; Abad Barton MD; Colby Roland DO; Vickie Muse MD Signed 12 LEAD ELECTROCARDIOGRAM Observed: 11/02/2018 Status: F Source: [place] 1:33 PM [facility] Cardiovascular Services [address] [place] [address] 12 Lead EKG 10/30/18 1238 MR#: [id number] Acct: [id number] Name: ISELA CAMARENA Rep #: [id number] : 1945 73 From: Pablo Aquino MD Attending Dr: Abad Barton MD Status: DIS IN Ordering Dr: Colby Roland DO Date: 10/30/18 Location: [facility] Sex: F C Admitted: 10/30/18 Test Reason : CONFUSION Blood Pressure : / mmHG Vent. Rate : 102 BPM Atrial Rate : 102 BPM P-R Int : 168 ms QRS Dur : 078 ms QT Int : 358 ms P-R-T Axes : 000 052 051 degrees QTc Int : 466 ms Sinus tachycardia with Premature atrial complexes Low voltage QRS Possible Inferior infarct , age undetermined Cannot rule out Anterior infarct , age undetermined Abnormal ECG Confirmed by PABLO AQUINO MD ([id number]), avid editor JAMI TOLENTINO ([id number]) on 11/02/2018 1:32:32 PM Referred By: Colby Roland Confirmed By:PABLO AQUINO MD 11/02/18 1332 Date Pablo Aquino MD CC: Geraldine Valencia MD; Abad Barton MD; Colby Roland DO Signed DISCHARGE SUMMARY Observed: 11/02/2018 Status: F Source: [place] 10:21 AM [facility] REPOS[facility] Medical Records Department [address] [place] [address] Discharge Summary 11/02/18 1018 MR#: [id number] Acct: [id number] Name: ISELA CAMARENA Rep #: [id number] : 1945 73 From: Abad Barton MD PCP: Geraldine Valencia MD Status: ADM IN Y Location: [place] [address] Discharge Date and Diagnosis - Problem List Patient Problems: Active and Suspected Problems Sepsis (Acute) Acute metabolic encephalopathy (Acute) MICHAELLE (acute kidney injury) (Acute) Depression (Acute) Shortness of breath (Acute) Tachycardia (Acute) Date of Admission: 10/30/18 Date of Discharge: 11/02/18 - Primary Discharge Diagnosis Active and Suspected Problems Sepsis (Acute) Acute metabolic encephalopathy (Acute) MICHAELLE (acute kidney injury) (Acute) Depression (Acute) Shortness of breath (Acute) Tachycardia (Acute) - Secondary Discharge Diagnosis Chronic Problems Debility (Chronic) VITA (obstructive sleep apnea) (Chronic) Hospital Course and Treatment Imaging Results: Clinical Impression(s) from Imaging Studies Chest X-Ray 10/30/18 12:27 IMPRESSION: Cardiomegaly and CHF. Electronically Signed: Joaquin Douglass MD at 13:20 EST Tel [phone], Service support , Chest CTA 10/30/18 17:16 IMPRESSION: 1. Study is limited for evaluation of pulmonary embolus. No obvious central emboli. Small, peripheral emboli could be missed. 2. No acute process demonstrated. 3. Old granulomatous disease. Electronically Signed: Diane Hodge MD at 21:28 EST Tel , Service support , Chest X-Ray 10/31/18 05:55 IMPRESSION: Mild interstitial edema. Electronically Signed: Cm Feliciano DO at 8:50 EST Tel , Service support , Consultations 10/31/18 19:55 Consult: Onc/Wound/racket stringer Routine Comment: Reason for Consult:: multiple wounds: coccyx, left gluteal fold, pannus, etc. Summary of Care Provided: Patient is a 73-year-old lady brought to the emergency department as a result of altered mental status. An assessment of acute cystitis was made. Antibiotics initiated per protocol patient admitted for further management. Patient was transferred to the intensive care unit after she developed SVT 1. Sepsis secondary to acute cystitis secondary to presence of a suprapubic catheter. Patient was started on broad-spectrum antibiotic therapy after cultures have been sent. Urine cultures only showed only mixed organisms do plan to discontinue antibiotics after 11/01/2018 2. Acute metabolic encephalopathy secondary to acute kidney injury as well as sepsis 3. Acute kidney injury suspected to be secondary to ATN from patient underlying infection baseline creatinine of 0.8 patient creatinine on admission was 1.94 which went up to 2.05 as of 10/31/2018: Kidney function improved prior to patient being discharged home 4. SVT probably prepped stated by patient underlying infection patient converted back to sinus rhythm with adenosine 5. Chronic hypoxic respiratory failure 6. Obstructive sleep apnea apparently noncompliant with CPAP 7. Morbid obesity with BMI of 55.9 8. Physical debility patient is wheelchair-bound 9. Presence of suprapubic catheter 10. Diabetes mellitus type II: Controlled; patient's oral hypoglycemics held. Placed on long acting insulin, Accu-Cheks a.c. and at bedtime and covered with sliding scale insulin 11. Hypertension-blood pressure controlled, home medications continued with dose adjustment as needed 12. Dyslipidemia-patient is on statin therapy, continued at home dose 13. Diabetic polyneuropathy 14.?? Seizure disorder patient is on Keppra indication not clear 15. DVT prophylaxis; SC heparin Patient Problems: Active and Suspected Problems Sepsis (Acute) Acute metabolic encephalopathy (Acute) MICHAELLE (acute kidney injury) (Acute) Depression (Acute) Shortness of breath (Acute) Tachycardia (Acute) Objective: GENERAL: Cooperative HEENT: Atraumatic; EYES; Anicteric, Normal Conjunctiva NECK; supple, normal thyroid, RESPIRATORY: Diminished to auscultation bilaterally, CARDIOVASCULAR: Regular S1 S2, no audible murmurs GI: soft, non-tender, normoactive bowel sounds, : No Renal angle tenderness; EXTREMITIES: , no clubbing, no cyanosis. - Physical Exam Vital Signs Temp Pulse Resp BP Pulse Ox 99.5 F H 84 15 160/87 H 95 11/02/18 10:10 11/02/18 10:10 11/02/18 10:10 11/02/18 10:10 11/02/18 10:10 Oxygen Flow Rate (L/min) 2 Oxygen Delivery Method Nasal Cannula Weight: 163.4 kg Body Mass Index (BMI) 55.4 Intake and Output for Last 24 Hours Intake Total 2543 / 2543 2534.7 / 2534.7 577 / 577 Output Total 2200 / 2200 2800 / 2800 975 / 975 Balance 343 / 343 -265.3 / -265.3 -398 / -398 Microbiology Past 72 Hours 10/30/18 12:35 Blood Culture - Preliminary Blood Culture (Wb) - Anticubital Left No growth in 48 hours. 10/30/18 12:30 Blood Culture - Preliminary Blood Culture (Wb) - Arm Right No growth in 48 hours. Laboratory Tests Past 24 Hrs WBC 6.6 RBC 3.44 L Hgb 9.9 L Hct 31.4 L MCV 91.3 POC Glucose POC Glucose 142 H 137 H 122 H POC Glucose 125 H Discharge Diet: 1800 Calorie Control Diet Discharge Activity: May not drive while taking narcotic pain medications. Home Medications: Medications to take at Discharge DiphenhydrAMINE [Benadryl] 25 mg PO BID PRN PRN 09/30/13 Furosemide [Lasix] 20 mg PO TID 09/30/13 Pantoprazole Sodium [Protonix] 40 mg PO DAILY 09/30/13 Pravastatin [Pravachol] 20 mg PO QHS 09/30/13 Albuterol Inhaler [Ventolin Hfa] 2 puff INHALATION Q4H PRN PRN 10/30/18 Baclofen 10 mg PO TID PRN PRN 10/30/18 Cholecalciferol (VIT D3) [Vitamin D3] 1,000 unit PO DAILY 10/30/18 Ciprofloxacin [Cipro] 500 mg PO BID PRN 10/30/18 Cranberry Conc/Ascorbic Acid [Cranberry Concentrate Softgel] 1 each PO BID 10/30/18 Cyanocobalamin [Vitamin B12] 1,000 mcg PO DAILY@0800 10/30/18 Diphenoxylate/Atrop [Lomotil] 1 tablet PO 4X/DAY PRN PRN 10/30/18 Duloxetine Hcl [Cymbalta] 30 mg PO DAILY 10/30/18 Fluticasone 0.05% [Flonase Nasal Bomont] 2 spray NASAL DAILY 10/30/18 Gabapentin [Neurontin] 1,200 mg PO 4X/DAY 10/30/18 Guaifenesin [Mucinex] 1,200 mg PO BID PRN 10/30/18 Hydrocodone Bitart/Apap 5-325 [[place] 5/325] 1 tablet PO Q6H PRN PRN 10/30/18 Lisinopril [Zestril] 10 mg PO DAILY 10/30/18 Metformin HCl [Glucophage] 500 mg PO BID 10/30/18 Metoprolol(XL)Succ [Toprol Xl (Beta Roopa)] 25 mg PO DAILY 10/30/18 Multivitamins,Ther W-Minerals [Multivitamin With Minerals] 1 tablet PO 4X/DAY 10/30/18 Mupirocin [Bactroban] 1 applicatio TOPICAL BID 10/30/18 Nitrofurantoin Macrocrystals [Macrobid] 100 mg PO DAILY 10/30/18 Nystatin Powder [Mycostatin Powder] 1 applicatio TOPICAL BID PRN PRN 10/30/18 Oxybutynin Chloride [Ditropan Xl] 15 mg PO DAILY 10/30/18 Potassium (Otc) [Potassium OTC] 99 mg PO DAILY 10/30/18 Ranitidine [Zantac] 150 mg PO BID 10/30/18 Triamcinolone 0.1% Dental Pst [Kenalog Dental Paste] 1 applicatio TOPICAL 4X/DAY 10/30/18 Venlafaxine XR [Effexor Xr] 150 mg PO BID 10/30/18 Vitamin E 400 units PO BID 10/30/18 levETIRAcetam tablet [Keppra tablet] 500 mg PO QHS 10/30/18 Primary Care Physician: Geraldine Valencia MD [Primary Care Provider] - Please follow up with your Primary Care Physician in: in 5- 7 days Disposition: Home with Home Health Minutes spent on discharge:: 40 Patient Condition:: Stable Medical Necessity - Tobacco Use Smoking Status: Never smoker Meaningful Use Info Meaningful Use Diagnoses (Choose all that apply): None applicable Code Visit Inpatient E AND M: 44015 Disch Hosp 11/02/18 1021 <Electronically signed by Abad Barton MD> Date Abad Barton MD Cosigner Signature (if applicable): Date CC: Geraldine Valencia MD; Abad Barton MD Signed DISCHARGE INSTRUCTION Observed: 11/02/2018 Status: F Source: ELLIS 10:16 AM [facility] REPOSITORY [facility] Medical Records Department [address] [place] [address] Instructions for Home/Discharge Instructions 11/02/18 1015 MR#: [id number] Acct: [id number] Name: ISELA CAMARENA Rep #: [id number] : 1945 73 From: Abad Barton MD PCP: Geraldine Valencia MD Status: ADM IN - Discharge Diagnoses Current Active Problems: Current Active and Chronic Problems Sepsis (Acute) Acute metabolic encephalopathy (Acute) Debility (Chronic) MICHAELLE (acute kidney injury) (Acute) Depression (Acute) VITA (obstructive sleep apnea) (Chronic) Shortness of breath (Acute) Tachycardia (Acute) You will use the following diet at home:: Calorie/Carbohydrate Controlled (specify 1200, 1400, etc) - 1800 Your food should be the consistency of: Regular Discharge Activity: May not drive while taking narcotic pain medications. Allergies/Adverse Reactions: Allergies adhesive tape Allergy (Verified 10/30/18 17:29) blisters Influenza Virus Vaccines Allergy (Verified 10/30/18 17:29) shortness of breath/severe wheezing iron Allergy (Verified 10/30/18 17:29) from IV form chest pressure and heart palpitations Sulfa (Sulfonamide Antibiotics) Allergy (Verified 10/30/18 17:29) Shortness of breath bactrim does not work for her-per pcp paperwork meloxicam [From Mobic] Adverse Reaction (Verified 10/30/18 17:29) gi upset seasonal allergies Allergy (Uncoded 10/30/18 17:29) Other Medications to take at Discharge DiphenhydrAMINE [Benadryl] 25 mg PO BID PRN PRN 09/30/13 Furosemide [Lasix] 20 mg PO TID 09/30/13 Pantoprazole Sodium [Protonix] 40 mg PO DAILY 09/30/13 Pravastatin [Pravachol] 20 mg PO QHS 09/30/13 Albuterol Inhaler [Ventolin Hfa] 2 puff INHALATION Q4H PRN PRN 10/30/18 Baclofen 10 mg PO TID PRN PRN 10/30/18 Cholecalciferol (VIT D3) [Vitamin D3] 1,000 unit PO DAILY 10/30/18 Ciprofloxacin [Cipro] 500 mg PO BID PRN 10/30/18 Cranberry Conc/Ascorbic Acid [Cranberry Concentrate Softgel] 1 each PO BID 10/30/18 Cyanocobalamin [Vitamin B12] 1,000 mcg PO DAILY@0800 10/30/18 Diphenoxylate/Atrop [Lomotil] 1 tablet PO 4X/DAY PRN PRN 10/30/18 Duloxetine Hcl [Cymbalta] 30 mg PO DAILY 10/30/18 Fluticasone 0.05% [Flonase Nasal Bomont] 2 spray NASAL DAILY 10/30/18 Gabapentin [Neurontin] 1,200 mg PO 4X/DAY 10/30/18 Guaifenesin [Mucinex] 1,200 mg PO BID PRN 10/30/18 Hydrocodone Bitart/Apap 5-325 [[place] 5/325] 1 tablet PO Q6H PRN PRN 10/30/18 Lisinopril [Zestril] 10 mg PO DAILY 10/30/18 Metformin HCl [Glucophage] 500 mg PO BID 10/30/18 Metoprolol(XL)Succ [Toprol Xl (Beta Roopa)] 25 mg PO DAILY 10/30/18 Multivitamins,Ther W-Minerals [Multivitamin With Minerals] 1 tablet PO 4X/DAY 10/30/18 Mupirocin [Bactroban] 1 applicatio TOPICAL BID 10/30/18 Nitrofurantoin Macrocrystals [Macrobid] 100 mg PO DAILY 10/30/18 Nystatin Powder [Mycostatin Powder] 1 applicatio TOPICAL BID PRN PRN 10/30/18 Oxybutynin Chloride [Ditropan Xl] 15 mg PO DAILY 10/30/18 Potassium (Otc) [Potassium OTC] 99 mg PO DAILY 10/30/18 Ranitidine [Zantac] 150 mg PO BID 10/30/18 Triamcinolone 0.1% Dental Pst [Kenalog Dental Paste] 1 applicatio TOPICAL 4X/DAY 10/30/18 Venlafaxine XR [Effexor Xr] 150 mg PO BID 10/30/18 Vitamin E 400 units PO BID 10/30/18 levETIRAcetam tablet [Keppra tablet] 500 mg PO QHS 10/30/18 Primary Care Physician: Geraldine Valencia MD [Primary Care Provider] - Please follow up with your Primary Care Physician in: in 5- 7 days Test Results: Test results from this visit will be discussed in further detail at your follow-up appointment, if applicable. Proposed Discharge Date: 11/02/18 11/02/18 1016 <Electronically signed by Abad Barton MD> Date Abad Barton MD CC: Geraldine Valencia MD; Jose Galo MD; Ilan Escobar D.O. BEDSIDE GLUCOSE Collected: 11/02/2018 Status: F Source: BOIS D ARC 5:29 AM [facility] REPOSITORY TYPE CODE TESTS RESULT OUT OF REFERENCE UNITS RANGE LAB L501.080 70-110 mg/dL High BEDSIDE GLU 142 Result Comment: MANAGEMENT OF PATIENT CARE PER NURSING PROTOCOL Performed By: #### L501.080 #### [facility] Point of Care [facility] [address] [place], [place] [address] BASIC METABOLIC Collected: 11/02/2018 Status: F Source: BOIS D ARC PROFILE (BMP) 5:10 AM [facility] REPOSITORY TYPE CODE TESTS RESULT OUT OF RANGE REFERENCE UNITS LAB L501.0100 74-106 mg/dL High GLU 131 Result Comment: Fasting Glucose result greater than or equal to 126 mg/dL suggests DIABETES MELLITUS per A.D.A. criteria. Please note revised GLUCOSE reference range effective 2017. LAB L501.1000 7-18 mg/dL High BUN 23 LAB L501.1100 0.55-1.02 mg/dL High CREAT,SERUM 1.21 Result Comment: The validity of the calculated GFR AND GFRAA in patients over 70 years has not been determined. Clinical correlation is essential. LAB L501.1110 >60 mL/min Low EST GFR 47 Result Comment: Non- GFR Calc LAB L501.1115 >60 mL/min Low EST GFR - AA 56 Result Comment: GFR Calc LAB L501.1255 ml/min Normal Estimated CRCL 40.87 LAB L501.1300 10-20 RATIO Normal BUN/CRE 19.0 LAB L501.2200 8.5-10 mg/dL Normal .1 CA 8.5 LAB L501.5300 136-14 mmol/L Normal 5 NA 136 LAB L501.5600 3.5-5. mmol/L Low 1 K 3.2 LAB L501.5900 98-107 mmol/L Normal CL 103 LAB L501.6100 21.0-3 mmol/L Normal 2.0 CO2 23.0 LAB L501.6200 5-15 Normal GAP 10 Performed By: #### L500.2500 #### [facility] [address] [facility]. [place], [place], [id number] CBC-COMPLETE BLOOD CNT Collected: 11/02/2018 Status: F Source: ELL[place] NO DIFF 5:10 AM [facility] REPOSITORY TYPE CODE TESTS RESULT OUT OF RANGE REFERENCE UNITS LAB L100.1000 4.4-11.0 K/mm3 Normal WBC 6.6 LAB L100.1200 4.2-5.4 M/mm3 Low RBC 3.44 LAB L100.1300 12.0-15.0 g/dl Low HGB 9.9 LAB L100.1400 37-47 % Low HCT 31.4 LAB L100.1500 81-99 fL Normal MCV 91.3 LAB L100.1600 27.0-32.0 pg Normal MCH 28.8 LAB L100.1700 32-36 g/gl Low MCHC 31.5 LAB L100.1810 11.6-14.6 % High RDW CV 16.6 LAB L100.1820 35.1-43.9 fl High RDW SD 53.5 LAB L100.1900 150-450 K/mm3 Normal PLT 202 LAB L100.2000 6.2-12.0 fl Normal MPV 10.2 Performed By: #### L100.0500 #### [facility] [address] [facility]. [place], [place], [id number] BEDSIDE GLUCOSE Collected: 11/01/2018 Status: F Source: ELLIS 11:19 PM [facility] REPOSITORY TYPE CODE TESTS RESULT OUT OF REFERENCE UNITS RANGE LAB L501.080 70-110 mg/dL High BEDSIDE GLU 137 Result Comment: MANAGEMENT OF PATIENT CARE PER NURSING PROTOCOL Performed By: #### L501.080 #### [facility] Point of Care [address] [place] [address] BEDSIDE GLUCOSE Collected: 11/01/2018 Status: F Source: ELL[place] 5:15 PM [facility] REPOSITORY TYPE CODE TESTS RESULT OUT OF REFERENCE UNITS RANGE LAB L501.080 70-110 mg/dL High BEDSIDE GLU 122 Result Comment: MANAGEMENT OF PATIENT CARE PER NURSING PROTOCOL Performed By: #### L501.080 #### [facility] Point of Care [address] [place] [address] BEDSIDE GLUCOSE Collected: 11/01/2018 Status: F Source: ELL[place] 12:13 PM [facility] REPOSITORY TYPE CODE TESTS RESULT OUT OF REFERENCE UNITS RANGE LAB L501.080 70-110 mg/dL High BEDSIDE GLU 125 Result Comment: MANAGEMENT OF PATIENT CARE PER NURSING PROTOCOL Performed By: #### L501.080 #### [facility] Point of Care [address] [facility] [place] [address] CBC-COMPLETE BLOOD CNT Collected: 11/01/2018 Status: F Source: ELL[place] NO DIFF 8:18 AM [facility] REPOSITORY TYPE CODE TESTS RESULT OUT OF RANGE REFERENCE UNITS LAB L100.1000 4.4-11.0 K/mm3 Normal WBC 6.5 LAB L100.1200 4.2-5.4 M/mm3 Low RBC 3.42 LAB L100.1300 12.0-15.0 g/dl Low HGB 9.9 LAB L100.1400 37-47 % Low HCT 31.1 LAB L100.1500 81-99 fL Normal MCV 90.9 LAB L100.1600 27.0-32.0 pg Normal MCH 28.9 LAB L100.1700 32-36 g/gl Low MCHC 31.8 LAB L100.1810 11.6-14.6 % High RDW CV 17.1 LAB L100.1820 35.1-43.9 fl High RDW SD 56.5 LAB L100.1900 150-450 K/mm3 Normal PLT 197 LAB L100.2000 6.2-12.0 fl Normal MPV 9.9 Performed By: #### L100.0500 #### [facility] [address] [facility] [place], [address] BASIC METABOLIC Collected: 11/01/2018 Status: F Source: ELLIS PROFILE (BMP) 8:18 AM [facility] REPOSITORY TYPE CODE TESTS RESULT OUT OF RANGE REFERENCE UNITS LAB L501.0100 74-106 mg/dL Normal GLU 99 Result Comment: Please note revised GLUCOSE reference range effective 2017. LAB L501.1000 7-18 mg/dL High BUN 32 LAB L501.1100 0.55-1.02 mg/dL High CREAT,SERUM 1.49 Result Comment: The validity of the calculated GFR AND GFRAA in patients over 70 years has not been determined. Clinical correlation is essential. LAB L501.1110 >60 mL/min Low EST GFR 37 Result Comment: Non- GFR Calc LAB L501.1115 >60 mL/min Low EST GFR - AA 44 Result Comment: GFR Calc LAB L501.1255 ml/min Normal Estimated CRCL 33.19 LAB L501.1300 10-20 RATIO High BUN/CRE 21.5 LAB L501.2200 8.5-10 mg/dL Low .1 CA 7.9 LAB L501.5300 136-14 mmol/L Low 5 NA 135 LAB L501.5600 3.5-5. mmol/L Normal 1 K 4.1 LAB L501.5900 98-107 mmol/L Normal CL 103 LAB L501.6100 21.0-3 mmol/L Normal 2.0 CO2 22.0 LAB L501.6200 5-15 Normal GAP 10 Performed By: #### L500.2500, L501.5200 #### [facility] [address] [place], [address] MAGNESIUM Collected: 11/01/2018 Status: F Source: ELLIS 8:18 AM [facility] REPOSITORY TYPE CODE TESTS RESULT OUT OF RANGE REFERENCE UNITS LAB L501.5200 1.6-2.6 mg/dL Normal MG 2.0 Performed By: #### L500.2500, L501.5200 #### [facility] [address] [facility] [address] [place], [address] BEDSIDE GLUCOSE Collected: 11/01/2018 Status: F Source: ELLIS 5:51 AM [facility] REPOSITORY TYPE CODE TESTS RESULT OUT OF RANGE REFERENCE UNITS LAB L501.080 70-110 mg/dL Normal BEDSIDE GLU 107 Result Comment: MANAGEMENT OF PATIENT CARE PER NURSING PROTOCOL Performed By: #### L501.080 #### [facility] Point of Care [address] [place] [address] BEDSIDE GLUCOSE Collected: 10/31/2018 Status: F Source: ELLIS 11:16 PM [facility] REPOSITORY TYPE CODE TESTS RESULT OUT OF RANGE REFERENCE UNITS LAB L501.080 70-110 mg/dL Normal BEDSIDE GLU 106 Result Comment: MANAGEMENT OF PATIENT CARE PER NURSING PROTOCOL Performed By: #### L501.080 #### [facility] Point of Care [address] [place] [address] BEDSIDE GLUCOSE Collected: 10/31/2018 Status: F Source: ELLIS 4:00 PM [facility] REPOSITORY TYPE CODE TESTS RESULT OUT OF RANGE REFERENCE UNITS LAB L501.080 70-110 mg/dL Normal BEDSIDE GLU 107 Result Comment: MANAGEMENT OF PATIENT CARE PER NURSING PROTOCOL Performed By: #### L501.080 #### [facility] Point of Care [address] [place] [address] CONSULTATION Observed: 10/31/2018 Status: F Source: ELLIS 1:40 PM [facility] Medical Records Department [facility] [address] [place] [address] Consultation 10/31/18 1316 MR#: [id number] Acct: [id number] Name: ISELA CAMARENA Rep #: [id number] : 1945 73 From: Ilan Escobar DO PCP: Geraldine Valencia MD Status: ADM IN Location: [place] [address] Reason for Consult Date of Consultation: 10/31/18 Reason for Consultation: Encephalopathy/SVT History of Present Illness: The patient is a 73-year-old female, with a history as outlined below, who initially presented to the emergency department on October 30 with altered mentation. The patient does have a history of severe obstructive sleep apnea, based off of the initial diagnostic polysomnogram completed in May 2014. However, she is noncompliant with use of nocturnal noninvasive positive pressure ventilation. The patient is super morbidly obese and is on a number of sedating medications in her home environment. On presentation to the emergency department, the patient was noted to be afebrile hemodynamically stable. She was maintaining appropriate oxygen saturations on 4 L/min via nasal cannula. Laboratory evaluation revealed a mildly elevated white blood cell count of 14,000. Coagulation profile was within normal limits. Chemistry profile revealed acute kidney injury with a creatinine 1.94. Serum lactate was within normal limits. BNP was mildly elevated to 169 with a negative troponin. Urinalysis was positive for nitrites, leukocyte esterase, white blood cells and 3+ urine bacteria. Per documentation, the patient was admitted for sepsis but was given IV Lasix in the emergency department for congestive heart failure. She did receive IV ceftriaxone and was subsequently admitted to the progressive care unit. On the evening of October 30, the patient was noted to be in SVT with elevated heart rates, which was treated medically with adenosine. The patient stabilized but was then transferred to the medical intensive care unit over concerns for clinical decompensation overnight. A CTA chest was obtained, which was suboptimal for the evaluation of pulmonary embolism. Calcified subcarinal and right hilar adenopathy was noted without an identifiable pulmonary infectious process. The patient's last surface echocardiogram revealed normal LV size and thickness with an ejection fraction of 75% and stage I diastolic dysfunction. The pulmonary artery systolic pressure was unable to be estimated. Past Medical History Past Medical History (Chronic Problems): Chronic Problems Debility (Chronic) VITA (obstructive sleep apnea) (Chronic) Allergies adhesive tape Allergy (Verified 10/30/18 17:29) blisters Influenza Virus Vaccines Allergy (Verified 10/30/18 17:29) shortness of breath/severe wheezing iron Allergy (Verified 10/30/18 17:29) from IV form chest pressure and heart palpitations Sulfa (Sulfonamide Antibiotics) Allergy (Verified 10/30/18 17:29) Shortness of breath bactrim does not work for her-per pcp paperwork meloxicam [From Mobic] Adverse Reaction (Verified 10/30/18 17:29) gi upset seasonal allergies Allergy (Uncoded 10/30/18 17:29) Other Home Medications: Ambulatory Orders Medication Instructions Recorded DiphenhydrAMINE [Benadryl] 25 mg PO BID PRN PRN 09/30/13 Surgical History: noncontributory Psychiatric History: Anxiety, Depression MANAGER STYLE History: No pertinent MANAGER STYLE history Lives: Alone Smoking Status: Never smoker - *Family History Maternal History Items: Unknown Paternal History Items: No pertinent history Review of Systems Constitutional: Denies: Chills, Fever, Weight Change HEENT: Denies: Head Aches, Sinus Congestion, Sinus Drainage Cardiovascular: Denies: Chest Pain, Palpitations Respiratory: Denies: Cough, Shortness of breath at rest, Sputum production Gastrointestinal: Denies: Abdominal Pain, Nausea, Vomiting Genitourinary: Denies: Dysuria Musculoskeletal: Reports: Back Pain Skin: Denies: Rash, Wounds Neurological: Denies: Numbness, Tingling, Focal weakness Psychiatric: Reports: Anxiety Hematologic/ Lymphatic: Denies: Easy Bruising, Easy Bleeding Patient Problems: Active and Suspected Problems Sepsis (Acute) Acute metabolic encephalopathy (Acute) MICHAELLE (acute kidney injury) (Acute) Depression (Acute) Shortness of breath (Acute) Tachycardia (Acute) Objective: The patient's most recent lab work, culture data and imaging studies have all been personally reviewed. - Physical Exam General: Alert, Confused, Disoriented HEENT: Atraumatic, PERRLA, Normocephalic Oral: No Gingival or Mucosal Lesions/ Ulcerations Neck: Supple, No Nodes, Trachea Midline, - - Large neck circumference with redundant soft tissue. Lungs: No rhonchi, No wheeze, No rales, Diminished, - - Poor inspiratory effort Cardiovascular: Regular rate, Regular Rhythm, Normal S1, Normal S2, No murmurs Abdomen: Bowel Sounds Present, Soft, Non Tender, Obese Extremities: No clubbing, No cyanosis, Edema Skin: No breakdown Musculoskeletal: No Muscle Wasting Neurological: - - No focal neurological deficits. Psych/Mental Status: Flat Affect Vital Signs Temp Pulse Resp BP Pulse Ox 37.4 C H 94 18 135/79 H 92 10/31/18 11:50 10/31/18 11:53 10/31/18 11:50 10/31/18 11:53 10/31/18 11:50 Oxygen Flow Rate (L/min) 1 Oxygen Delivery Method Nasal Cannula Weight: 356 lb 14.854 oz Body Mass Index (BMI) 55.4 Intake and Output for Last 24 Hours Intake Total 609 / 609 1228 / 1228 Output Total 1200 / 1200 900 / 900 Balance -591 / -591 328 / 328 Microbiology Past 72 Hours 10/30/18 17:30 Gram Stain - Final Wound - Aerobic AND Anaerobic Swabs 10/30/18 12:52 Urine Culture - Final Urine Catheter - Henry Mixed Gram Pos AND Gram Neg Org Laboratory Tests Past 24 Hrs WBC RBC Hgb Hct MCV MCH MCHC WBC 9.0 RBC 3.57 L Hgb 10.4 L Hct 32.6 L MCV 91.3 MCH 29.1 MCHC 31.9 L RDW 17.0 H RDW Differential 55.3 H POC Glucose POC Glucose 142 H 173 H 151 H POC Glucose 152 H Clinical Impression(s) from Imaging Studies Chest X-Ray 10/30/18 12:27 IMPRESSION: Cardiomegaly and CHF. Electronically Signed: Joaquin Douglass MD at 13:20 EST Tel [phone], Service support , Chest CTA 10/30/18 17:16 IMPRESSION: 1. Study is limited for evaluation of pulmonary embolus. No obvious central emboli. Small, peripheral emboli could be missed. 2. No acute process demonstrated. 3. Old granulomatous disease. Electronically Signed: Diane Hodge MD at 21:28 EST Tel , Service support , Chest X-Ray 10/31/18 05:55 IMPRESSION: Mild interstitial edema. Electronically Signed: Cm Feliciano DO at 8:50 EST Tel , Service support , Assessment/Plan Active and Suspected Problems Sepsis (Acute) Acute metabolic encephalopathy (Acute) MICHAELLE (acute kidney injury) (Acute) Depression (Acute) Shortness of breath (Acute) Tachycardia (Acute) RECOMMENDATIONS: 1. Continue antibiotics. 2. Recommend further de-escalation of the patient's Neurontin and outpatient narcotic pain regimen. 3. Continue beta-roopa therapy. 4. Wean supplemental oxygen and encourage incentive spirometer use. Mobilize patient as tolerated. 5. Recommend empiric utilization of nocturnal noninvasive positive pressure ventilation. IMPRESSIONS: 1. Sepsis secondary to presumptive cystitis Continue antibiotics pending finalized culture results. Recommend judicious use of supplemental IV fluids, given underlying diastolic dysfunction. The patient remains hemodynamically stable. 2. Encephalopathy Likely multifactorial in etiology with underlying urinary source of infection, in combination with renal insufficiency and polypharmacy. Continue treatment for the patient's identified infectious process. Consider further de-escalation of the patient's sedating outpatient medications. 3. Super morbid obesity/obstructive sleep apnea/chronic hypoxemic respiratory failure The patient does have a known history of obstructive sleep apnea and chronic supplemental oxygen utilization. However, per report, she is noncompliant with the use of nocturnal noninvasive positive pressure ventilation. 4. Supraventricular tachycardia The patient has been evaluated by cardiology and is currently on a beta-roopa. Her heart rate is currently under control. SVT was likely related to underlying infectious process. 5. Hypertension/diabetes/neuropathy/chronic pain syndrome Complicates care, management, recovery and prognosis. Recommend de-escalation of the patient's Neurontin and narcotic pain regimen. This note was generated with [employer] dictation software. It may contain incorrect words, spelling, and punctuation that were not noted in checking the note before signing. DISPOSITION: The patient is medically stable for transfer out of the intensive care unit. Given the patient's lack of further ICU needs, will sign off. Please call with any additional questions. Code Visit Inpatient E AND M: 06466 Init Hosp L3 10/31/18 1340 <Electronically signed by Ilan Escobar DO> Date Ilan Escobar DO Cosigner Signature (if applicable): Date CC: Geraldine Valencia MD; Jose Galo MD; Ilan Escobar D.O.; Colby Roland DO Signed CONSULTATION Observed: 10/31/2018 Status: F Source: [facility] 11:33 AM [facility] Medical Records Department [address] [place] [address] Consultation 10/31/18 1125 MR#: [id number] Acct: [id number] Name: ISELA CAMARENA Rep #: [id number] : 1945 73 From: Jose Galo MD PCP: Geraldine Valencia MD Status: ADM IN Y Location: [place] [address] Problem List (1) Shortness of breath Status: Acute (2) Tachycardia Status: Acute Reason for Consult Date of Consultation: 10/31/18 Reason for Consultation: Tachycardia, shortness of breath History of Present Illness: The patient is a 73 year old F severely obese female, with obstructive sleep apnea, who is unable to walk, essentially bedbound, who was found to be unresponsive yesterday, and brought emergently to the emergency room of [facility] by squad. According to the admitting hospitalist she had a narrow complex tachycardia and was short of breath and obtunded. Patient underwent a CTA of her chest which demonstrated no significant proximal pulmonary emboli although distal emboli cannot be excluded. Patient was given fluid resuscitation, supplemental O2, and admitted to the ICU. Patient has a chronic suprapubic catheter, was found to have UTI/sepsis, and has been treated with IV antibiotics ever since admission. Patient was ruled out for myocardial infarction, and a 2D echo with Doppler was performed this morning which showed hyperdynamic LV function with an EF of 75%, unable to quantitate RVSP, and stage I diastolic dysfunction. Patient is able to communicate, but has difficulty getting her words out. Patient is on a significant amount of Neurontin, but denied any chest pain, angina, shortness of breath at her place of residence. Patient is essentially nonambulatory. [] Past Medical History Allergies/Adverse Reactions: Allergies adhesive tape Allergy (Verified 10/30/18 17:29) blisters Influenza Virus Vaccines Allergy (Verified 10/30/18 17:29) shortness of breath/severe wheezing iron Allergy (Verified 10/30/18 17:29) from IV form chest pressure and heart palpitations Sulfa (Sulfonamide Antibiotics) Allergy (Verified 10/30/18 17:29) Shortness of breath bactrim does not work for her-per pcp paperwork meloxicam [From Mobic] Adverse Reaction (Verified 10/30/18 17:29) gi upset seasonal allergies Allergy (Uncoded 10/30/18 17:29) Other Home Medications: Ambulatory Orders Medication Instructions Recorded DiphenhydrAMINE [Benadryl] 25 mg PO BID PRN PRN 09/30/13 Past Medical History (Chronic Problems): Chronic Problems Debility (Chronic) VITA (obstructive sleep apnea) (Chronic) Surgical History: noncontributory Psychiatric History: Anxiety, Depression MANAGER STYLE History: No pertinent MANAGER STYLE history - *Family History Maternal History Items: Unknown Paternal History Items: No pertinent history Lives: Alone Smoking Status: Never smoker Subjectve: Patient laying in bed, no acute distress. Objective: Vital Signs Temp Pulse Resp BP Pulse Ox 99.2 F H 96 18 131/54 H 95 10/31/18 10:04 10/31/18 10:04 10/31/18 10:04 10/31/18 10:04 10/31/18 10:04 Oxygen Flow Rate (L/min) 1 Oxygen Delivery Method Nasal Cannula Weight: 356 lb 14.854 oz Body Mass Index (BMI) 55.4 Intake and Output for Last 24 Hours Intake Total 609 / 609 1228 / 1228 Output Total 1200 / 1200 900 / 900 Balance -591 / -591 328 / 328 General: Awake, Alert, Oriented x 3 HEENT: PERRL, EOMI, Sclera Non Icteric Neck: Supple, Good ROM, No Lymph Node Enlargement Lungs: Clear to auscultation Cardiovascular: Regular Rhythm, Normal S1, Normal S2, No Murmurs, No Rubs, No Gallops Vascular: No Carotid Bruits, Normal Femoral Pulses, Normal Radial Pulses, Normal Dorsalis Pedal Pulse, Normal Posterior Tibial Pulses Abdomen: Bowel Sounds Present, Soft, Non Tender, No HSM, No Organomegaly Extremities: No Cyanosis, No Clubbing, No edema Neurological: No Focal Motor or Sensory Deficit 10/30/18 12:30: WBC 14.3 H, RBC 4.00 L, Hgb 11.7 L, Hct 36.2 L, MCV 90.5, MCH 29.3, MCHC 32.3, RDW 16.8 H, RDW Differential 55.5 H, Plt Count 230, MPV 10.0, Immature Gran % (Auto) 0.500, Neut % (Auto) 90.0 H, Lymph % (Auto) 4.2 L, [place] % (Auto) 5.2, Eos % (Auto) 0.0, Baso % (Auto) 0.1, Absolute Neuts (auto) 12.9 H, Total Counted Not Reportable 10/30/18 12:30: PT Cancelled, INR Cancelled, APTT Cancelled 10/30/18 12:30: Sodium 135 L, Potassium 4.8, Chloride 100, Carbon Dioxide 25.0, Anion Gap 10, BUN 37 H, Creatinine 1.94 H, Est GFR (MDRD) Af Amer 33 L, Est GFR (MDRD) Non-Af 27 L, BUN/Creatinine Ratio 19.1, Glucose 161 H, Calcium 9.1, Total Bilirubin 0.80 10/30/18 12:30: Lactic Acid 1.2 10/30/18 12:35: B-Natriuretic Peptide 169.2 H 10/30/18 12:52: Urine Color Yellow, Urine Clarity Cloudy, Urine pH 6.5, Ur Specific [place] 1.010, Urine Protein 100 H, Urine Glucose (UA) Normal, Urine Ketones 5 H, Urine Occult Blood 250 H, Urine Nitrite Positive H, Urine Bilirubin Negative, Urine Urobilinogen Normal, Ur Leukocyte Esterase 500 H, Urine RBC 5-10 SEEN, Urine WBC 25- 50 SEEN 10/30/18 14:21: PT 16.6 H, INR 1.3, APTT 35.3 10/30/18 16:48: pH 7.39, Bicarbonate Actual 23.4, POC Total CO2 25, Base Excess -2, O2 Saturation 95, ABG pCO2 38.7, ABG pO2 74 L 10/30/18 17:00: Magnesium 1.9, Troponin I < 0.015 10/31/18 03:55: Sodium 140, Potassium 4.1, Chloride 105, Carbon Dioxide 26.0, Anion Gap 9, BUN 38 H, Creatinine 2.05 H, Est GFR (MDRD) Af Amer 31 L, Est GFR (MDRD) Non-Af 25 L, BUN/Creatinine Ratio 18.5, Glucose 159 H, Calcium 8.4 L, Troponin I < 0.015 10/31/18 03:55: WBC 9.0, RBC 3.57 L, Hgb 10.4 L, Hct 32.6 L, MCV 91.3, MCH 29.1, MCHC 31.9 L, RDW 17.0 H, RDW Differential 55.3 H, Plt Count 213, MPV 10.1, Immature Gran % (Auto) 0.400, Neut % (Auto) 85.6 H, Lymph % (Auto) 7.3 L, [place] % (Auto) 6.3, Eos % (Auto) 0.3, Baso % (Auto) 0.1, Absolute Neuts (auto) 7.7, Total Counted Not Reportable Rhythm: EKG: ECHO: As above Stress Test: Cardiac Cath: PCI: CT Surgery: Holter monitor: EPS: PPM: CXR: Chest CT Scan: Assessment/Plan 1. Tachycardia: The patient apparently had some kind of narrow complex tachycardia although I cannot locate her EKG in the chart that defines this. This may have been related to her septic picture given her suprapubic catheter and UTI/sepsis. Her telemetry overnight has shown essentially normal sinus rhythm with PACs. Her LV function is normal by echocardiogram, in fact it is hyper dynamic with an EF around 75%, stage I diastolic dysfunction, and unable to quantitate RVSP. Her troponins have all been negative x3. This point I would not recommend any additional testing at this time. I believe her clinical condition and living condition would point away from aggressive workup at this time. She may require a noninvasive stress test as an outpatient when she is recovered from her UTI. Her chest x-ray shows no significant pulmonary infiltrate, and her chest CT scan shows no overt pulmonary embolus. I believe the patient's excessive amount of Neurontin may be contributing to her mental status changes, I would recommend neurologic consultation for adjustment if indicated. Do not believe the patient requires catheterization at this time. 2. Obstructive sleep apnea: The patient has a diagnosed obstructive sleep apnea and was recommend nasal CPAP. Continue present therapy. 3. Thank you very much for the opportunity to participate in the cardiac care of your patient. Please call with any questions. We will sign off. Consultation time took place between 9 and 9:30 AM. Code Visit Inpatient E AND M: 75039 Init Hosp L2 10/31/18 1133 <Electronically signed by Jose Galo MD> Date Jose Galo MD Cosigner Signature (if applicable): Date CC: Geraldine Valencia MD; Jose Galo MD; Ilan Escobar D.O.; Colby Roland DO Signed BEDSIDE GLUCOSE Collected: 10/31/2018 Status: F Source: ELLIS 11:23 AM [facility] REPOSITORY TYPE CODE TESTS RESULT OUT OF REFERENCE UNITS RANGE LAB L501.080 70-110 mg/dL High BEDSIDE GLU 142 Result Comment: MANAGEMENT OF PATIENT CARE PER NURSING PROTOCOL Performed By: #### L501.080 #### [facility] Point of Care [address] [place] [address] ECHO, COMPLETE W/ Observed: 10/31/2018 Status: F Source: ELLIS CONTRAST 11:13 AM [facility] REPOSITORY [facility] Cardiovascular Services [address] [place] [address] Echo Complete W/ Contrast 10/31/18 0844 MR#: [id number] Acct: [id number] Name: ISELA CAMARENA Rep #: [id number] : 1945 73 From: Jose Galo MD Attending Dr: Abad Barton MD Status: ADM IN Ordering Dr: Colby Roland DO Date: 10/31/18 Location: U Sex: F C Admitted: 10/30/18 Reason For Study: Dyspnea/SOB Procedure This was a 2D Doppler, Color Flow transthoracic echocardiogram. Contrast injection was performed. Exam performed portable in ICU/CCU. Left Ventricle Normal size and thickness. The estimated ejection fraction is 75 %. Stage 1 diastolic dysfunction. No regional wall motion abnormalities noted. Right Ventricle Normal size and thickness. Normal systolic function. Atria The left atrium is moderately enlarged. Normal right atrium. Normal atrial septum. Mitral Valve The mitral valve is structurally normal. No prolapse or stenosis seen. Tricuspid Valve Normal tricuspid valve. Unable to estimate RV systolic pressure due to inadequate jet, pulmonary artery pressure probably normal. Aortic Valve Normal aortic valve. Trisinus/trileaflet aortic valve. Pulmonic Valve The pulmonic valve is not well visualized. Great Vessels Normal aortic root. Mild atherosclerosis of the aortic arch. Normal inferior vena cava. Inferior vena cava collapse with sniff. Pericardium/Pleural No pericardial effusion. Medication Diluted definity 2ml given slow IV push to enhance endocardial definition. MMode/2D Measurements AND Calculations LVIDd: 4.6 cm IVSd: 1.1 cm Ao root diam: 3.7 cm LVIDs: 3.1 cm LVPWd: 1.0 cm LA dimension: 3.6 cm RVDd: 3.2 cm FS: 32.5 % LAV(MOD-sp4): 72.0 ml LVAd ap4: 32.6 cm2 SV(MOD-sp4): 72.7 ml EDV(MOD-sp4): 113.6 ml EDV(sp4-el): 114.8 ml LVAs ap4: 17.5 cm2 ESV(MOD-sp4): 40.9 ml ESV(sp4-el): 42.9 ml EF(MOD-sp4): 64.0 % EF(sp4-el): 62.6 % SV(sp4-el): 71.9 ml LA A4 area: 23.6 cm2 RA A4 area: 17.9 cm2 Time Measurements MV dec time: 0.19 sec Doppler Measurements AND Calculations MV E max alyx: 130.9 cm/sec Lat Peak E' Alyx: 9.4 cm/sec Med Peak E' Alyx: 9.3 cm/sec MV A max alyx: 145.4 cm/sec E/E' lat: 13.9 E/E' med: 14.1 MV E/A: 0.90 MV V2 max: 169.5 cm/sec MV P1/2t max alyx: 160.8 cm/sec Ao V2 max: 186.8 cm/sec MV max P.5 mmHg MV P1/2t: 55.9 msec Ao max P.0 mmHg MV V2 mean: 113.1 cm/sec Ao V2 mean: 119.4 cm/sec MV mean P.9 mmHg MV dec slope: 842.1 cm/sec2 Ao mean P.6 mmHg MV V2 VTI: 35.7 cm MVA(P1/2t): 3.9 cm2 Ao V2 VTI: 31.5 cm LV V1 max: 134.9 cm/sec PA V2 max: 101.1 cm/sec LV V1 max P.3 mmHg LV V1 mean P.5 mmHg LV V1 mean: 84.7 cm/sec LV V1 VTI: 23.5 cm Interpretation Summary The estimated ejection fraction is 75 %. Stage 1 diastolic dysfunction. The left atrium is moderately enlarged. Unable to estimate RV systolic pressure due to inadequate jet, pulmonary artery pressure probably normal. The study was technically difficult. There is no comparison study available. Contrast injection was performed. Ordering Physician: Colby Roland Referring Physician: Colby Roland Performed By: Cayden Snowden, REECE 10/31/18 1112 Date Jose Galo MD CC: Geraldine Valencia MD; Abad Barton MD; Colby Roland DO Date Dictated: 10/31/1844 Date Transcribed: 10/31/181111 Habilitation Worker: Signed BEDSIDE GLUCOSE Collected: 10/31/2018 Status: F Source: BOIS D ARC 5:23 AM [facility] REPOSITORY TYPE CODE TESTS RESULT OUT OF REFERENCE UNITS RANGE LAB L501.080 70-110 mg/dL High BEDSIDE GLU 173 Result Comment: MANAGEMENT OF PATIENT CARE PER NURSING PROTOCOL Performed By: #### L501.080 #### [facility] Point of Care [address] [place] [address] CBC W/DIFF, AUTOMATED Collected: 10/31/2018 Status: F Source: BOIS D ARC 3:55 AM [facility] REPOSITORY TYPE CODE TESTS RESULT OUT OF RANGE REFERENCE UNITS LAB L100.1000 4.4-11.0 K/mm3 Normal WBC 9.0 LAB L100.1200 4.2-5.4 M/mm3 Low RBC 3.57 LAB L100.1300 12.0-15.0 g/dl Low HGB 10.4 LAB L100.1400 37-47 % Low HCT 32.6 LAB L100.1500 81-99 fL Normal MCV 91.3 LAB L100.1600 27.0-32.0 pg Normal MCH 29.1 LAB L100.1700 32-36 g/gl Low MCHC 31.9 LAB L100.1810 11.6-14.6 % High RDW CV 17.0 LAB L100.1820 35.1-43.9 fl High RDW SD 55.3 LAB L100.1900 150-450 K/mm3 Normal PLT 213 LAB L100.2000 6.2-12.0 fl Normal MPV 10.1 LAB L100.2100 47-70 % High NEUT% 85.6 LAB L100.2200 19-41 % Low LY% 7.3 LAB L100.2300 0-10 % Normal MONO% 6.3 LAB L100.2400 0-5 % Normal EO% 0.3 LAB L100.2500 0-1 % Normal BASO% 0.1 LAB L100.2550 0.0-0.9 % Normal IM GRAN % 0.400 Result Comment: IG% - Immature Granulocytes (promyelocytes, myelocytes and metamyelocytes) > 1% indicates that a LEFT SHIFT is Present. LAB L100.2620 2.0-7.7 X10 3/uL Normal Absolute Neut 7.7 LAB L100.2720 0.83-4.51 X10 3/ul Low Absolute Lymph 0.66 Performed By: #### L100.0100 #### [facility] [address] [place], [address] BASIC METABOLIC Collected: 10/31/2018 Status: F Source: BOIS D ARC PROFILE ([facility]) 3:55 AM [facility] REPOSITORY Order Comment: 'TROP' Serial specimen #1, #2, #3, or #4: 1 TYPE CODE TESTS RESULT OUT OF RANGE REFERENCE UNITS LAB L501.0100 74-106 mg/dL High GLU 159 Result Comment: Fasting Glucose result greater than or equal to 126 mg/dL suggests DIABETES MELLITUS per A.D.A. criteria. Please note revised GLUCOSE reference range effective 2017. LAB L501.1000 7-18 mg/dL High BUN 38 LAB L501.1100 0.55-1.02 mg/dL High CREAT,SERUM 2.05 Result Comment: The validity of the calculated GFR AND GFRAA in patients over 70 years has not been determined. Clinical correlation is essential. LAB L501.1110 >60 mL/min Low EST GFR 25 Result Comment: Non- GFR Calc LAB L501.1115 >60 mL/min Low EST GFR - AA 31 Result Comment: GFR Calc LAB L501.1255 ml/min Normal Estimated CRCL 24.12 LAB L501.1300 10-20 RATIO Normal BUN/CRE 18.5 LAB L501.2200 8.5-10 mg/dL Low .1 CA 8.4 LAB L501.5300 136-14 mmol/L Normal 5 NA 140 LAB L501.5600 3.5-5. mmol/L Normal 1 K 4.1 Result Comment: Slight Hemolysis, Result may be falsely increased. LAB L501.5900 98-107 mmol/L Normal CL 105 LAB L501.6100 21.0-32.0 mmol/L Normal CO2 26.0 LAB L501.6200 5-15 Normal 9 GAP Performed By: #### L500.2500, L501.4010 #### [facility] [address] [facility] [address] [place], [place], [address] TROPONIN-I Collected: 10/31/2018 Status: F Source: BOIS D ARC 3:55 AM [facility] REPOSITORY Order Comment: 'TROP' Serial specimen #1, #2, #3, or #4: 1 TYPE CODE TESTS RESULT OUT OF RANGE REFERENCE UNITS LAB L501.4010 <0.045 ng/mL Normal < 0.015 TROPONIN-I Result Comment: TROPONIN-I EXPECTED VALUES <0.045 Negative 0.045 - 0.590 Consistent with Cardiac Damage > OR = 0.600 Critical Value Not every elevated troponin is indicative of MS. These values should be used with clinical judgement in examining the patient's clinical picture for diagnosis. To establish a diagnosis of MS versus myocardial injury, there must be a demonstrated rise and/or fall in the troponin values, in addition to ischemic symptoms, EKG changes, new regional wall motion abnormality, and/or angiographical evidence. PLEASE NOTE: REFERENCE RANGES EDITED 18 Performed By: #### L500.2500, L501.4010 #### [facility] [address] [facility] [address] [place], [place], [address] CHEST 1 VIEW Observed: 10/31/2018 Status: F Source: ELLSI (PORTABLE) 12:00 AM [facility] REPOSITORY [facility] Imaging Services [address] [place] [address] Chest 1 View (Portable) MR#: [id number] Acct: [id number] Name: ISELA CAMARENA Rep #: [id number] : 1945 F 73 From: Cm Feliciano DO PCP: Geraldine Valencia MD Status: ADM IN Study: Chest 1 View (Portable) Date of Exam: 10/31/18 Exam# [id number] Ordering Dr: Colby Roland DO STUDY: X-RAY CHEST REASON FOR EXAM: Female, 73 years old. Shortness of breath and dyspnea TECHNIQUE: Single AP portable view of the chest. COMPARISON: 10/30/2018 FINDINGS: Lungs are adequately inflated. Mild interstitial edema is noted. No focal consolidation or infiltrates. There is no demonstrated pleural abnormality. There is borderline cardiomegaly. Normal mediastinum and peace. Normal visualized pulmonary arteries. Normal visualized aortic arch and descending thoracic aorta. There are diffuse degenerative changes of the visualized thoracic spine. Normal visualized ribs, clavicles, and shoulders. There is no demonstrated abnormality of the visualized soft tissue structures of the upper abdomen. RAD/Chest 1 View (Portable) IMPRESSION: Mild interstitial edema. Electronically Signed: Cm Feliciano DO at 8:50 EST Tel , Service support , CC: Geraldine Valencia MD; Colby Roland DO Habilitation Worker: Signed BEDSIDE GLUCOSE Collected: 10/30/2018 Status: F Source: BOIS D ARC 11:55 PM [facility] REPOSITORY TYPE CODE TESTS RESULT OUT OF REFERENCE UNITS RANGE LAB L501.080 70-110 mg/dL High BEDSIDE GLU 151 Result Comment: MANAGEMENT OF PATIENT CARE PER NURSING PROTOCOL Performed By: #### L501.080 #### [facility] Point of Care [address] [place] [address] HISTORY AND PHYSICAL Observed: 10/30/2018 Status: F Source: ELLIS EXAM 9:12 PM [facility] REPOSITORY [facility] Medical Records Department [address] [place] [address] History and Physical 10/30/18 1529 MR#: [id number] Acct: [id number] Name: ISELA CAMARENA Rep #: [id number] : 1945 73 From: Nestor ROCHE PCP: Geraldine Valencia MD Status: ADM IN Y Location: ICU ICU02-1 ADDENDUM by Colby Roland DO on 10/30/18 at 2111 Code Visit Physical exam: On examination she appeared undulant and responded only to painful stimuli and loud verbal stimuli. Vital signs as documented. Skin warm and dry and without overt rashes, mucous membranes were dry. Neck without JVD. Lungs clear. Heart exam notable for regular rhythm-tachycardic, normal sounds and absence of murmurs, rubs or gallops. Abdomen unremarkable and without evidence of organomegaly, masses, or abdominal aortic enlargement. She has super morbid obesity. Extremities-bilateral foot drop is noted. Neuro: Cranial nerves II through XII are grossly intact, neuro examination was incomplete due to encephalopathy. Psych: Patient is somnolent, she responds to painful stimuli and loud verbal stimuli but is confused. She does not appeared to be anxious. 10/30/182111 <Electronically signed by Colby Roland DO> Date Colby Roland DO cc: MELCHOR Wiley; Geraldine Valencia MD; Colby Roland DO * Signed ADDENDUM by Colby Roland DO on 10/30/18 at 2000 Code Visit Patient was seen and examined independently today of Nestor Wiley, she was seen in the emergency room after being brought in by squad, she was found by neighbors at her home, she was confused and lethargic. Patient does not walk, she usually has help every morning with her ADLs. Patient's POA is her sister who is currently out of town. Review of systems was unobtainable from the patient due to confusion and lethargy. Workup in the emergency room included an abnormal white blood cell count of 14.3, hemoglobin was 11.7, patient's creatinine was elevated at 1.94, BUN was elevated at 37, patient's sodium was 135. Lactic acid was 1.2. Urinalysis was obtained from the patient-she has a chronic suprapubic catheter-urine was positive for urine nitrite, 5-10 RBCs, 25-50 WBCs, positive leukocyte esterase of 500, and +3 bacteria in the urine. Patient had a chest x-ray performed which indicated she had CHF, on physical examination of the patient however, she appeared to be dry with dry mucous membranes. Patient is super morbidly obese and her chest x-ray was not optimal. Patient was initially admitted to PCU, a med list was obtained from her family practitioner, it showed that the patient was on more than 20 medications including 4800 mg of gabapentin daily, I called neurology who had been seeing the patient on a chronic basis (Dr. Robertson) and her only diagnosis was neuropathy, she had no seizure history. Patient had recently been taken off her Trileptal, she was maintained on Keppra but I am not sure why and there was no reason given why the patient was on Keppra. Patient is taking chronic pain medications, it appears she is on [place] and OxyContin. At approximately 5:00 today, it was noted that the patient went into a narrow complex tachycardia at approximately 170-180 bpm, an ABG was obtained on the patient during this period of time, it showed a pH of 7.39, PCO2 of 38, PO2 of 74 on 6 L. Patient was given adenosine 6 mg with conversion to a sinus tachycardia at approximately 105 bpm. It was decided that the patient would be better served to be in the ICU for closer observation, I contacted cardiology and they agreed to see the patient tomorrow, I also talked briefly with pulmonary medicine who will see the patient tomorrow. I have ordered a CTA of the patient's chest tonight to rule out pulmonary embolism, her creatinine is elevated but I think it is important that this be eliminated as a cause of her SVT. However, her body habitus may be such that she will unable to be placed in a CT scanner. I have reviewed Nestor Wiley's history and physical and made additions to his narrative above, I endorse his history and physical otherwise. Inpatient E AND M: [id number] Init Hosp L3 10/30/182000 <Electronically signed by Colby Roland DO> Date Colby Roland DO cc: MELCHOR Wiley; Geraldine Valencia MD; Colby Roland DO * Signed Problem List (1) Sepsis Status: Acute (2) Acute metabolic encephalopathy Status: Acute (3) MICHAELLE (acute kidney injury) Status: Acute (4) Depression Status: Acute (5) Suprapubic catheter dysfunction Status: Acute (6) UTI (urinary tract infection) Status: Acute (7) Debility Status: Chronic (8) VITA (obstructive sleep apnea) Status: Chronic History of Present Illness Date of Admission: 10/30/18 Chief Complaint: altered mental status The patient is a 73 year old F with pmhx of UTIs, suprapubic catheter, VITA, chronic hypoxic respiratory failure, morbid obesity, debility - wheelchair bound, who presents to the ER with altered mental status. She was sent to the ER by EMS, her caregiver noted that she was increasingly confused for the last 24 hours, last normal 2 days ago. She called the POA who advised to call EMS. She appears lethargic and is A/O x 0. She appears dehydrated. The caregiver cannot provide much information other than she has had the suprpubic cath for about 8 years at which point she had a severe infection, was in a coma, and has been wheelchair bound since. She states her baseline mental status is good. She is active at home, the aid helps her dress and get to bed. She does not use CPAP at night, just wears her O2. [] Past Medical History Past Medical History (Chronic Problems): Chronic Problems Debility (Chronic) VITA (obstructive sleep apnea) (Chronic) Allergies Sulfa (Sulfonamide Antibiotics) Allergy (Verified 09/30/13 13:27) Other Home Medications: Ambulatory Orders Medication Instructions Recorded Aspirin [Aspirin, Baby] 81 mg PO DAILY@0800 09/30/13 Baclofen [Lioresal] 10 mg PO 4X/DAY 09/30/13 Surgical History: noncontributory Psychiatric History: Anxiety, Depression MANAGER STYLE History: No pertinent MANAGER STYLE history Lives: Alone Smoking Status: Never smoker - *Family History Maternal History Items: Unknown Paternal History Items: No pertinent history VTE Information - Inpt Only VTE Present on Admission: No VTE Mechan Device Prophylaxis: None VTE Pharm Prophylaxis ordered?: Yes Patient Problems: Active and Suspected Problems Sepsis (Acute) Acute metabolic encephalopathy (Acute) MICHAELLE (acute kidney injury) (Acute) Depression (Acute) - Physical Exam General: Confused, Lethargic HEENT: Atraumatic, PERRLA, EOMI, Normocephalic Neck: Supple, No JVD, Negative Carotid Bruits Lungs: Clear to auscultation, Normal air movement Cardiovascular: Regular rate, No murmurs Abdomen: Bowel Sounds Present, Soft, Non Tender Extremities: No edema, Capillary Refill Less than 3 Seconds Skin: No rashes, No breakdown Musculoskeletal: No Tenderness to Palpation of Joints or Extremities Neurological: Cranial nerves II-XII grossly intact Psych/Mental Status: Normal Affect, Appropriate, - - oriented x 0 Vital Signs Temp Pulse Resp BP Pulse Ox 102.2 F H 101 H 101 H 130/94 H 98 10/30/18 15:03 10/30/18 15:00 10/30/18 15:03 10/30/18 15:03 10/30/18 15:03 Oxygen Flow Rate (L/min) 4 Oxygen Delivery Method Nasal Cannula Weight: 353 lb 13.471 oz Body Mass Index (BMI) 55.4 Laboratory Tests Past 24 Hrs WBC RBC Hgb Hct MCV MCH Assessment/Plan All Active Problems Sepsis (Acute) Acute metabolic encephalopathy (Acute) MICHAELLE (acute kidney injury) (Acute) Depression (Acute) Suprapubic catheter dysfunction (Acute) UTI (urinary tract infection) (Acute) 1. Acute sepsis 2/2 UTI likely due to suprapubic cath - zosyn. received rocephin in ER. + UA. Urine culture pending. Nursing to change suprapubic cath. + fever, leukocytosis, tachycardia, tachypnea. Follow blood and urine cx -We placed an ordered to obtain records from his PCP office as we do not know the full hx. Pt appears dry - will give IV fluids. 2. Acute metabolic encephalopathy - currently lethargic, A/O x 0. started becoming more confused yesterday morning. 3. MICHAELLE 2/2 sepsis - IV fluids. May creatinine was normal. 4. Chronic hypoxic respiratory failure - CXR shows CHF, however it is not clear if there is acute resp failure. Will check BNP. She does wear O2 at night instead of using CPAP. Repeat CXR in AM. 5. VITA - noncompliant with CPAP 6. Morbid obesity - npo for now. dietary eval when appropriate. 7. Suprapubic cath - leaking. Change. It is unclear why she has this at this time. waiting for records. 8. HLD - on statin 9. Debility - wheelchair bound. DVT ppx: heparin DC planning: likely needs placed, PTOT evals when alert This patient was seen by Nestor Wiley PA-C under the supervision of Doctor Luan. 10/30/18 1552 <Electronically signed by Nestor ROCHE> Date Nestor ROCHE 10/30/18 1736<Electronically signed by Colby Roland DO> Cosigner Signature: Date (if applicable) Colby Roland DO CC: MELCHOR Wiley; Geraldine Valencia MD; Colby Roland DO Signed BEDSIDE GLUCOSE Collected: 10/30/2018 Status: F Source: ELLIS 5:50 PM [facility] REPOSITORY TYPE CODE TESTS RESULT OUT OF REFERENCE UNITS RANGE LAB L501.080 70-110 mg/dL High BEDSIDE GLU 152 Result Comment: MANAGEMENT OF PATIENT CARE PER NURSING PROTOCOL Performed By: #### L501.080 #### [facility] Point of Care [address] [place], [place] [id number] Observed: 10/30/2018 Status: F Source: ELLIS CULTURE, WOUND 5:30 PM [facility] REPOSITORY Comments: 2 swabs Gram Stain Gram Stain 1+ White Blood Cells 1+ Epithelial cells 4+ Gram negative rods 4+ Gram positive rods 4+ Gram positive cocci Wound Culture There are no CLSI standards for interpretation of this Drug/Organism combination. Clinical correlation necessary, Possible skin contamination. ORGANISM 1: Corynebacterium minutissimum Amount Growth 3+ ORGANISM 2: Corynebacterium species Amount Growth 3+ Performed By: #### M100.1400 #### [facility] [address] [place], [address] CTA CHEST W/WO Observed: 10/30/2018 Status: F Source: BOIS D ARC CONTRAST 5:17 PM [facility] REPOSITORY [facility] Imaging Services [address] [place] [address] CTA Chest W/WO Contrast MR#: [id number] Acct: [id number] Name: ISELA CAMARENA Rep #: [id number] : 1945 F 73 From: Diane Hodge MD PCP: Geraldine Valencia MD Status: ADM IN Study: CTA Chest W/WO Contrast Date of Exam: 10/30/18 Exam# [id number] Ordering Dr: Colby Roland DO STUDY: CTA CHEST REASON FOR EXAM: Female, 73 years old. Hypoxia. RADIATION DOSAGE (If Supplied By Facility): CTDIvol = ( 26.20 ) mGy, DLP = ( 1098.29 ) mGycm TECHNIQUE: The examination was performed with the intravenous administration of 100 ml of Isovue 370 contrast material. Post-processing of the angiographic images was performed, with multiplanar reformation and 3D reconstruction. Individualized dose optimization techniques were used for this CT. COMPARISON: None. FINDINGS: This study is limited due to patient respiratory motion. The heart and pericardium are normal. The aorta is normal in caliber, with no aneurysm or dissection. There is suboptimal opacification of the pulmonary arteries. No obvious embolus is identified. Small or peripheral emboli could be missed. Calcified subcarinal and right hilar adenopathy is consistent with old granulomatous disease. There is no pleural effusion. There is no pulmonary consolidation. Multiple granulomatous calcifications are noted in the liver and spleen. Demonstrated abdomen is otherwise unremarkable. There is no osseous abnormality. CT/CTA Chest W/WO Contrast IMPRESSION: 1. Study is limited for evaluation of pulmonary embolus. No obvious central emboli. Small, peripheral emboli could be missed. 2. No acute process demonstrated. 3. Old granulomatous disease. Electronically Signed: Diane Hodge MD at 21:28 EST Tel , Service support , CC: Geraldine Valencia MD; Colby Roland DO Habilitation Worker: Signed TROPONIN-I Collected: 10/30/2018 Status: F Source: ELLIS 5:00 PM [facility] REPOSITORY TYPE CODE TESTS RESULT OUT OF RANGE REFERENCE UNITS LAB L501.4010 <0.045 ng/mL Normal < 0.015 TROPONIN-I Result Comment: TROPONIN-I EXPECTED VALUES <0.045 Negative 0.045 - 0.590 Consistent with Cardiac Damage > OR = 0.600 Critical Value Not every elevated troponin is indicative of MS. These values should be used with clinical judgement in examining the patient's clinical picture for diagnosis. To establish a diagnosis of MS versus myocardial injury, there must be a demonstrated rise and/or fall in the troponin values, in addition to ischemic symptoms, EKG changes, new regional wall motion abnormality, and/or angiographical evidence. PLEASE NOTE: REFERENCE RANGES EDITED 18 Performed By: #### L501.4010, L501.5200 #### [facility] [address] [place], [place], [address] MAGNESIUM Collected: 10/30/2018 Status: F Source: ELLIS 5:00 PM [facility] REPOSITORY TYPE CODE TESTS RESULT OUT OF RANGE REFERENCE UNITS LAB L501.5200 1.6-2.6 mg/dL Normal MG 1.9 Result Comment: Moderate Hemolysis, Result may be falsely increased. Performed By: #### L501.4010, L501.5200 #### [facility] [address] [place], [address] BLOOD GASES BY [facility] Collected: 10/30/2018 Status: F Source: ELLIS 4:48 PM [facility] REPOSITORY TYPE CODE TESTS RESULT OUT OF RANGE REFERENCE UNITS LAB L9000.9990 Normal BLD GAS TYPE ART LAB L9001.1000 Normal SITE L Radial LAB L9001.1050 O2 Normal Delivery Dev Nasal Can LAB L9001.1055 /min Normal LPM 6.0 LAB L9001.1104 Normal Results To HOSP MD LAB L9001.1105 Normal Time Given 1647 LAB L9001.1110 7.35-7.45 pH Normal - I-STAT 7.39 LAB L9001.1210 35-45 mmHg Normal pCO2 - ISTAT 38.7 LAB L9001.1310 75-100 mmHG Low PO2 I-STAT 74 LAB L9001.2300 22-26 mmol/L Normal HCO3 ISTAT 23.4 LAB L9001.2400 -2 to +2 mmol/L BE Normal ISTAT -2 LAB L9001.2415 mmol/L Normal TOTAL CO2 25 ISTAT LAB L9001.2425 95-99 % Normal SO2 ISTAT 95 Performed By: #### L9000.0800 #### [facility] Point of Care [address] [place] [address] PROTHROMBIN TIME W/INR Collected: 10/30/2018 Status: F Source: BOIS D ARC 2:21 PM [facility] REPOSITORY Order Comment: REDRAW. PREVIOUS SPECIMEN REJECTED DUE TO HEMOLYSIS. 10/30/18 1300 [employer]. TYPE CODE TESTS RESULT OUT OF RANGE REFERENCE UNITS LAB L300.4150 11.7-14.9 SECONDS High PROTIME 16.6 LAB L300.4200 Normal INR 1.3 Performed By: #### L300.3900, L300.4310 #### [facility] [place], [place], [address] PARTIAL THROMBOPLAST Collected: 10/30/2018 Status: F Source: BOIS D ARC TIME 2:21 PM [facility] REPOSITORY Order Comment: REDRAW. PREVIOUS SPECIMEN REJECTED DUE TO HEMOLYSIS. 10/30/18 1300 [employer]. TYPE CODE TESTS RESULT OUT OF RANGE REFERENCE UNITS LAB L300.4310 24.1-36.2 Seconds Normal PTT 35.3 Performed By: #### L300.3900, L300.4310 #### [facility] [address] [place], [address] EMERGENCY DEPARTMENT Observed: 10/30/2018 Status: F Source: BOIS D ARC SUMMARY 2:11 PM [facility] REPOSITORY [facility] Medical Records Department [address] [place] [address] Emergency Department Summary 10/30/18 1407 MR#: [id number] Acct: [id number] Name: ISELA CAMARENA Rep #: [id number] : 1945 73 From: Wagner Tineo MD PCP: Geraldine Valencia MD Status: REG ER - ER Visit Summary Date of Service: 10/30/18 Chief Complaint: Decreased level of consciousness History of Present Illness: The patient is a 73 F who requires significant stimulation to answer questions. Speech is garbled. She is tachycardic, tachypneic and hypoxic. She is unable to contribute to history and physical exam is limited. She opens her eyes to noxious stimuli. She withdraws to noxious stimuli. Per old records past medical history of bladder issues and reflux. Presented with an indwelling Henry. Physical Examination: Vital signs are remarkable for a heart rate of 106, respiratory 23 and pulse ox of 88%. Pupils are equal round reactive. Extra muscles intact. Sclerae anicteric. TMs normal. Nares patent. Mucosa is dry. Heart is rapid with distant heart tones. Lungs are without wheeze rales or rhonchi. Breath sounds are diminished. Abdomen is soft nontender with normal bowel sounds. There is edema of the lower extremities. She is occasionally arousable to noxious stimuli. Test Results: Chest x-ray reveals CHF. Study is limited secondary to rotation. EKG interpreted by me as sinus tachycardia with a rate of 102. MN interval normal. QRS duration normal. QT interval normal. There is decreased anterior force noted. White count is 14.3 thousand 96. Electronic panel is remarkable for BUN of 37 and creatinine 1.94. Baseline creatinine 0.8. Glucose 161. Urine is consistent with infection. Lactate is normal at 1.2. Emergency Department Course and Treatment: Sepsis workup was undertaken. Metabolic workup was undertaken as well. Patient with sepsis secondary to UTI. Hypoxia secondary to CHF. She received 1 g of Rocephin. She received 20 mg of Lasix and she is fluid overloaded. Treatment Plan: PCU for further testing and treatment Disposition: Full admission Impression: 1. Sepsis 2. UTI 3. Respiratory failure with hypoxia 4. CHF 5. Acute kidney injury 6. Hyperglycemia in a nondiabetic patient This note was generated with [employer] dictation software. It may contain incorrect words, spelling, and punctuation that were not noted in review of the chart prior to signing ED Disposition - Plan for ED Patient: Chief Complaint: Confusion Referrals: Geraldine Valencia MD [Primary Care Provider] - What to do if you have Problems For any increased pain, shortness of breath, bleeding, nausea or vomiting, chest pain, or any unexpected problems, contact your Primary Care Provider. Call [facility] ([phone]) or report to the closest Emergency Room. Call 911 if necessary. 10/30/18 1411 <Electronically signed by Wagner Tineo MD> Date Wagner Tineo MD Cosigner Signature (If Indicated): Date CC: Geraldine Valencia MD URINALYSIS, COMPLETE Collected: 10/30/2018 Status: F Source: ELLIS 12:52 PM [facility] REPOSITORY Order Comment: Order Date: 10/30/18 Has pt arrived? Y How was Urine Obtained? CATHETER SPECIMEN TYPE CODE TESTS RESULT OUT OF RANGE REFERENCE UNITS LAB L400.3000 Yellow COLOR Normal Yellow LAB L400.3050 Clear Normal CLARITY Cloudy LAB L400.3200 Normal mg/dl Normal GLUCOSE, UR Normal LAB L400.3300 Negative mg/dL Normal BILIRUBIN URINE Negative LAB L400.3400 Negative mg/dl High 5 KETONE UR LAB L400.3465 1.002-1.030 Normal SP.GR. DIPSTX 1.010 LAB L400.3550 5.0 - 8.0 pH UR Normal 6.5 LAB L400.3600 Negative mg/dl High PROT DIPSTX 100 LAB L400.3700 Normal mg/dl Normal UROBILI Normal LAB L400.3750 Negative High NITRITE UR Positive LAB L400.3780 Negative /ul High OCCULT BLOOD-UR 250 LAB L400.3800 Negative /ul High LEUK ESTERASE 500 LAB L400.4050 0-5 /hpf WBC Normal 25-50 SEEN LAB L400.4100 0-5 /hpf Normal RBC-UA 5-10 SEEN LAB L400.4150 5-10 /hpf SQUAM Normal EPI 0-5 SEEN LAB L400.4300 None Seen /hpf 3+ Normal BACTERIA LAB L400.4350 <or=2+ /hpf Normal MUCUS, URINE RARE Performed By: #### L400.0001 #### [facility] [address] [place], [address] Observed: 10/30/2018 Status: F Source: ELLIS CULTURE, URINE 12:52 PM [facility] REPOSITORY Order Date: 10/30/18 Has pt arrived? Y Urine Culture Henry cath urine is not recommended. Growth may represent distal urethral raquel. ORGANISM 1: Mixed Gram Pos AND Gram Neg Org [place] Count >100,000 MIX CULTURE Mixed contaminants. Submit a new specimen if indicated. Performed By: #### M100.0650 #### [facility] [address] [facility] [place], [place], [address] BNP,B-TYPE NATRIURETIC Collected: 10/30/2018 Status: F Source: ELLIS PEPTIDE 12:35 PM [facility] REPOSITORY TYPE CODE TESTS RESULT OUT OF RANGE REFERENCE UNITS LAB L503.6620 0-100 pg/mL High B-TYPE 169.2 KATINA PEP Performed By: #### L503.6620 #### [facility] [address] [place], [address] Observed: 10/30/2018 Status: F Source: ELLIS CULTURE, BLOOD (WB) 12:35 PM [facility] REPOSITORY BC No growth in 5 days. Performed By: #### M200.1000 #### [facility] [address] [place], [address] CBC W/DIFF, AUTOMATED Collected: 10/30/2018 Status: F Source: ELLIS 12:30 PM [facility] REPOSITORY TYPE CODE TESTS RESULT OUT OF RANGE REFERENCE UNITS LAB L100.1000 4.4-11.0 K/mm3 High WBC 14.3 LAB L100.1200 4.2-5.4 M/mm3 Low RBC 4.00 LAB L100.1300 12.0-15.0 g/dl Low HGB 11.7 LAB L100.1400 37-47 % Low HCT 36.2 LAB L100.1500 81-99 fL Normal MCV 90.5 LAB L100.1600 27.0-32.0 pg Normal MCH 29.3 LAB L100.1700 32-36 g/gl Normal MCHC 32.3 LAB L100.1810 11.6-14.6 % High RDW CV 16.8 LAB L100.1820 35.1-43.9 fl High RDW SD 55.5 LAB L100.1900 150-450 K/mm3 Normal PLT 230 LAB L100.2000 6.2-12.0 fl Normal MPV 10.0 LAB L100.2100 47-70 % High NEUT% 90.0 LAB L100.2200 19-41 % Low LY% 4.2 LAB L100.2300 0-10 % Normal MONO% 5.2 LAB L100.2400 0-5 % Normal EO% 0.0 LAB L100.2500 0-1 % Normal BASO% 0.1 LAB L100.2550 0.0-0.9 % Normal IM GRAN % 0.500 Result Comment: IG% - Immature Granulocytes (promyelocytes, myelocytes and metamyelocytes) > 1% indicates that a LEFT SHIFT is Present. LAB L100.2620 2.0-7.7 X10 3/uL High Absolute Neut 12.9 LAB L100.2720 0.83-4.51 X10 3/ul Low Absolute Lymph 0.60 LAB L100.4500 Normal SMEAR COMMENT SCANNED Result Comment: RARE BANDS SEEN Performed By: #### L100.0100 #### [facility] [address] [place], [address] COMPREHENSIVE METABOLIC Collected: 10/30/2018 Status: F Source: [facility] 12:30 PM [facility] REPOSITORY TYPE CODE TESTS RESULT OUT OF RANGE REFERENCE UNITS LAB L501.0100 74-106 mg/dL High GLU 161 Result Comment: Fasting Glucose result greater than or equal to 126 mg/dL suggests DIABETES MELLITUS per A.D.A. criteria. Please note revised GLUCOSE reference range effective 2017. LAB L501.1000 7-18 mg/dL High BUN 37 LAB L501.1100 0.55-1.02 mg/dL High CREAT,SERUM 1.94 Result Comment: The validity of the calculated GFR AND GFRAA in patients over 70 years has not been determined. Clinical correlation is essential. LAB L501.1110 >60 mL/min Low EST GFR 27 Result Comment: Non- GFR Calc LAB L501.1115 >60 mL/min Low EST GFR - AA 33 Result Comment: GFR Calc LAB L501.1255 ml/min Normal Estimated CRCL 24.54 LAB L501.1300 10-20 RATIO Normal BUN/CRE 19.1 LAB L501.1500 6.4-8. g/dL Normal 2 T PROT 7.7 LAB L501.1800 3.2-5. g/dL Low 0 ALB 2.7 LAB L501.1950 2.2-4. g/dL High 2 GLOB 5.0 LAB L501.2000 0.9-2. RATIO Low 4 A/G 0.5 LAB L501.2200 8.5-10 mg/dL Normal .1 CA 9.1 LAB L501.4100 15-37 U/L Normal AST 26 Result Comment: Moderate Hemolysis, Result may be falsely increased. LAB L501.4305 45-117 U/L Normal ALK P 73 LAB L501.4405 13-56 U/L Normal ALT 14 LAB L501.4600 0.20-1.00 mg/dL Normal T BILI 0.80 LAB L501.5300 136-145 mmol/L Low NA 135 LAB L501.5600 3.5-5.1 mmol/L Normal K 4.8 Result Comment: Moderate Hemolysis, Result may be falsely increased. LAB L501.5900 98-107 mmol/L Normal CL 100 LAB L501.6100 21.0-32.0 mmol/L Normal CO2 25.0 LAB L501.6200 5-15 Normal GAP 10 Performed By: #### L500.4050 #### [facility] [place], [address] LACTIC ACID Collected: 10/30/2018 Status: F Source: BOIS D ARC 12:30 PM [facility] REPOSITORY Order Comment: Yes/No query for Sepsis Lactate Rule Y TYPE CODE TESTS RESULT OUT OF RANGE REFERENCE UNITS LAB L503.6005 0.4-2.0 mmol/L Normal LACTIC ACID 1.2 Performed By: #### L503.6005 #### [facility] [address] [place], [address] CHEST 1 VIEW Observed: 10/30/2018 Status: F Source: BOIS D ARC (PORTABLE) 12:30 PM [facility] REPOSITORY [facility] Imaging Services [address] [place] [address] Chest 1 View (Portable) MR#: [id number] Acct: [id number] Name: ISELA CAMARENA Rep #: [id number] : 1945 F 73 From: Joaquin Douglass MD PCP: Geraldine Valencia MD Status: REG ER Study: Chest 1 View (Portable) Date of Exam: 10/30/18 Exam# [id number] Ordering Dr: Wagner Tineo MD STUDY: X-RAY CHEST REASON FOR EXAM: Female, 73 years old. Hypoxia. TECHNIQUE: Single AP portable view of the chest. COMPARISON: None. FINDINGS: EKG electrodes are seen. Vascular congestion and mild CHF. There is no demonstrated pleural abnormality. There is moderate cardiac enlargement. Normal mediastinum and peace. Normal visualized pulmonary arteries. There is atherosclerotic tortuosity of the aortic arch and descending thoracic aorta. Normal visualized thoracic spine. Normal visualized ribs, clavicles, and shoulders. There is no demonstrated abnormality of the visualized soft tissue structures of the upper abdomen. RAD/Chest 1 View (Portable) IMPRESSION: Cardiomegaly and CHF. Electronically Signed: Joaquin Douglass MD at 13:20 EST Tel [phone], Service support , CC: Geraldine Valencia MD; Wagner Tineo MD Habilitation Worker: Signed Observed: 10/30/2018 Status: F Source: ELLIS CULTURE, BLOOD (WB) 12:30 PM [facility] RE[facility]ITORY BC No growth in 5 days. Performed By: #### M200.1000 #### [facility] [place], [address] PROGRESS Observed: 09/21/2018 Status: COMPLETED Source: READER 2:57 PM [facility] REPOSITORY HNO ID: [id number] Author: Diane Nielsen Ma Service: (none) Author Type: (none) Type: Progress Notes Filed: 09/21/2018 2:58 PM Note Text: Suprapubic catheter change performed as ordered. A 24 bulgarian henry catheter was replaced using sterile technique without complications. Balloon inflated with 30cc of sterile saline. Patient tolerated procedure well. Irrigation preformed to insure proper placement done with good return. Patient to follow up in 1 month. Patient to call in the interim with any problems or concerns. Diane Nielsen Ma CNNURSE Observed: 09/21/2018 Status: COMPLETED Source: READER 11:00 AM [facility] Nurse Visit (UROLWS) ISELA CAMARENA ([id number]) 1945 F Date Time Provider Department 09/21/18 11:00 AM [facility] During your visit today, we recorded the following information about you: Diane Nielsen Ma 09/21/2018 2:58 PM Signed Suprapubic catheter change performed as ordered. A 24 bulgarian henry catheter was replaced using sterile technique without complications. Balloon inflated with 30cc of sterile saline. Patient tolerated procedure well. Irrigation preformed to insure proper placement done with good return. Patient to follow up in 1 month. Patient to call in the interim with any problems or concerns. Diane Nielsen Ma Referring Provider: GERALDINE VALENCIA [[id number]] Allergies As of Date: 09/21/2018 Noted Allergy Reaction IRON 03/06/2013 14 - Other: See Comments Comments: From IV form; heart palpitations, chest pressure ADHESIVE TAPE (ROSINS) 10/19/2006 Comments: Blisters INFLUENZA VIRUS VACCINES 09/04/2012 12 - Shortness of Breath Comments: severe wheezing seasonal allergies [Other] 04/17/2006 SULFA (SULFONAMIDE ANTIBIOTICS) 07/11/2005 12 - Shortness of Breath Comments: Bactrim does not work for her MOBIC (MELOXICAM) 07/20/2006 8 - GI Upset Date Reviewed: 09/21/2018 Reviewed by: Diane Nielsen Ma - Fully Assessed Reason for Visit: Nurse Visit [792] Primary Visit Diagnosis:Urinary retention [R33.9] Prescriptions as of 09/21/2018 Sig: NITROFURANTOIN MONOHYDRATE AND * Take 1 capsule by mouth once * RANITIDINE 150 MG TABLET Take 1 tablet by mouth twice * CATHETER 24 FR 24 FR SILVER henry catheter w* SODIUM CHLORIDE 0.9 % SOLUTION To use for catheter irrigatio* COMPOUNDED PRESCRIPTION Split Gauze pads 4x4 Dx: U* COMPOUNDED PRESCRIPTION Suprapubic Irrigating kit * COMPOUNDED PRESCRIPTION Urinary night bags SADIQ KEND* MUPIROCIN 2 % TOPICAL OINTMENT Apply 1 application to affect* FUROSEMIDE 20 MG TABLET Take 1 tablet by mouth three * LISINOPRIL 10 MG TABLET Take 1 tablet by mouth once d* HYDROCODONE 5 MG-ACETAMINOPHE* Take 1 tablet by mouth every * VENLAFAXINE 75 MG TABLET Take 1 tablet by mouth three * NYSTATIN 100,000 UNIT/GRAM TO* Apply 1 application to affect* METFORMIN 500 MG TABLET Take 1 tablet by mouth twice * PANTOPRAZOLE 40 MG TABLET,DEL* Take 1 tablet by mouth once d* PRAVASTATIN 20 MG TABLET Take 1 tablet by mouth daily * ALBUTEROL SULFATE HFA 90 MCG/* Inhale 2 Puffs as instructed * OXYBUTYNIN CHLORIDE ER 15 MG * Take 1 tablet by mouth once d* METOPROLOL SUCCINATE ER 25 MG* Take 1 tablet by mouth once d* CIPROFLOXACIN 500 MG TABLET Take 1 tablet by mouth twice * FLUTICASONE 50 MCG/ACTUATION * Use 2 Sprays in each nostril * VITAMIN E 400 UNIT CAPSULE Take 1 capsule by mouth twice* CYANOCOBALAMIN (VIT B-12) 1,0* Take 1 tablet by mouth once d* CHOLECALCIFEROL (VITAMIN D3) * Take 1 capsule by mouth once * POTASSIUM 99 MG TABLET Take 1 tablet by mouth once d* GABAPENTIN 300 MG CAPSULE Takes 900 in the morning, 120* DIPHENOXYLATE-ATROPINE 2.5 MG* Take 1 tablet by mouth four t* OXYCODONE-ACETAMINOPHEN 5 MG-* GUAIFENESIN ER 600 MG TABLET,* Take 2 tablets by mouth twice* LEVETIRACETAM 500 MG TABLET Take 500 mg by mouth once cora* MULTIVITAMIN WITH MINERALS TA* Take 1 tablet by mouth four t* TRIAMCINOLONE ACETONIDE 0.1 %* 1 application by DENTAL route* DIPHENHYDRAMINE 25 MG CAPSULE Take 25 mg by mouth twice cora* CRANBERRY CONCENTRATE-ASCORBI* Take 140 mg by mouth twice da* BLOOD SUGAR DIAGNOSTIC STRIPS Use as instructed SYRINGE (DISPOSABLE) 60 ML Use daily as directed. Dx: v* BACLOFEN 10 MG TABLET Take 1 tablet by mouth three * PRECISION XTRA TEST STRIPS Test blood sugars once daily * Problem List As Of Date 09/21/2018 Noted Resolved Essential hypertension [I10] More... DEPRESSIVE DISORDER NEC [F32.9] SACROILIITIS NEC [M46.1] INTERNAL DERANGEMENT KNEE-CHRONIC CHONDROMALACI*INVALID FOR* DYSMETABOLIC SYNDROME X [E88.81] INVALID FOR* Spinal stenosis, lumbar region, without neuroge*INVALID FOR*10/24/2016 MORBID OBESITY [E66.01] INVALID FOR* More... VITAMIN D DEFICIENCY NOS [E55.9] INVALID FOR* More... Knee fracture, left [ZYL6502] INVALID FOR* More... Septic shock [A41.9, R65.21] INVALID FOR* Suprapubic catheter [Z93.59] INVALID FOR* More... Lower urinary tract infectious disease [N39.0] INVALID FOR* Hematuria [R31.9] INVALID FOR* Urinary retention [R33.9] INVALID FOR* Polypharmacy [Z79.899] INVALID FOR* Controlled substance agreement signed [Z79.899] INVALID FOR* Chronic pain [G89.29] INVALID FOR* Kidney stone [N20.0] INVALID FOR* Degenerative arthritis of knee, bilateral [M17.*INVALID FOR* Shoulder capsulitis [M75.80] INVALID FOR* Chronic pain syndrome [G89.4] INVALID FOR* Chronic midline low back pain with bilateral sc*INVALID FOR* Spinal stenosis, lumbar region, with neurogenic*INVALID FOR* Decubitus skin ulcer [L89.90] INVALID FOR* Decubitus ulcer, stage 2 [L89.92] INVALID FOR* Controlled type 2 diabetes mellitus without com*INVALID FOR* More... Sacral decubitus ulcer [L89.159] INVALID FOR*03/28/2018 Decubitus ulcer of right perineal ischial regio*INVALID FOR*03/28/2018 Encounter Status:Closed by DIANE NIELSEN MA on 09/21/18 PROGRESS Observed: 08/24/2018 Status: COMPLETED Source: READER 3:46 PM [facility] REPOSITORY HNO ID: [id number] Author: Diane Nielsen Ma Service: (none) Author Type: (none) Type: Progress Notes Filed: 08/28/2018 5:32 PM Note Text: .Suprapubic catheter change performed as ordered. A 24 bulgarian henry catheter was replaced using sterile technique without complications. Balloon inflated with 30cc of sterile saline. Patient tolerated procedure well. Irrigation preformed to insure proper placement done with good return. Patient to follow up in 4 weeks. Patient to call in the interim with any problems or concerns. ASHISH Murray, [place], JENNIFER VELASCO Observed: 08/24/2018 Status: COMPLETED Source: READER 1:00 PM [facility] REPOSITORY Office Visit (UROLWS) ISELA CAMARENA ([id number]) 1945 F Date Time Provider Department 08/24/18 1:00 PM HECTOR CROCKER) UROLMIGUEL During your visit today, we recorded the following information about you: Diane Nielsen Ma 08/24/2018 3:48 PM Signed .Suprapubic catheter change performed as ordered. A 24 bulgarian henry catheter was replaced using sterile technique without complications. Balloon inflated with 30cc of sterile saline. Patient tolerated procedure well. Irrigation preformed to insure proper placement done with good return. Patient to follow up in 4 weeks. Patient to call in the interim with any problems or concerns. Hector Crocker, MPAS, MT, PA-C Referring Provider: GERALDINE VALENCIA [[id number]] Allergies As of Date: 08/24/2018 Noted Allergy Reaction IRON 03/06/2013 14 - Other: See Comments Comments: From IV form; heart palpitations, chest pressure ADHESIVE TAPE (ROSINS) 10/19/2006 Comments: Blisters INFLUENZA VIRUS VACCINES 09/04/2012 12 - Shortness of Breath Comments: severe wheezing seasonal allergies [Other] 04/17/2006 SULFA (SULFONAMIDE ANTIBIOTICS) 07/11/2005 12 - Shortness of Breath Comments: Bactrim does not work for her MOBIC (MELOXICAM) 07/20/2006 8 - GI Upset Date Reviewed: 08/24/2018 Reviewed by: Diane Nielsen Ma - Fully Assessed Reason for Visit: Tube Change-suprapubic [824] Primary Visit Diagnosis:Urinary retention [R33.9] Prescriptions as of 08/24/2018 Sig: CATHETER 24 FR 24 FR SILVER henry catheter w* SODIUM CHLORIDE 0.9 % SOLUTION To use for catheter irrigatio* COMPOUNDED PRESCRIPTION Split Gauze pads 4x4 Dx: U* COMPOUNDED PRESCRIPTION Suprapubic Irrigating kit * COMPOUNDED PRESCRIPTION Urinary night bags SADIQ KEND* MUPIROCIN 2 % TOPICAL OINTMENT Apply 1 application to affect* FUROSEMIDE 20 MG TABLET Take 1 tablet by mouth three * LISINOPRIL 10 MG TABLET Take 1 tablet by mouth once d* HYDROCODONE 5 MG-ACETAMINOPHE* Take 1 tablet by mouth every * VENLAFAXINE 75 MG TABLET Take 1 tablet by mouth three * RANITIDINE 150 MG TABLET Take 1 tablet by mouth twice * NYSTATIN 100,000 UNIT/GRAM TO* Apply 1 application to affect* METFORMIN 500 MG TABLET Take 1 tablet by mouth twice * PANTOPRAZOLE 40 MG TABLET,DEL* Take 1 tablet by mouth once d* PRAVASTATIN 20 MG TABLET Take 1 tablet by mouth daily * ALBUTEROL SULFATE HFA 90 MCG/* Inhale 2 Puffs as instructed * OXYBUTYNIN CHLORIDE ER 15 MG * Take 1 tablet by mouth once d* METOPROLOL SUCCINATE ER 25 MG* Take 1 tablet by mouth once d* NITROFURANTOIN MONOHYDRATE AND * Take 1 capsule by mouth once * CIPROFLOXACIN 500 MG TABLET Take 1 tablet by mouth twice * FLUTICASONE 50 MCG/ACTUATION * Use 2 Sprays in each nostril * VITAMIN E 400 UNIT CAPSULE Take 1 capsule by mouth twice* CYANOCOBALAMIN (VIT B-12) 1,0* Take 1 tablet by mouth once d* CHOLECALCIFEROL (VITAMIN D3) * Take 1 capsule by mouth once * POTASSIUM 99 MG TABLET Take 1 tablet by mouth once d* GABAPENTIN 300 MG CAPSULE Takes 900 in the morning, 120* DIPHENOXYLATE-ATROPINE 2.5 MG* Take 1 tablet by mouth four t* OXYCODONE-ACETAMINOPHEN 5 MG-* GUAIFENESIN ER 600 MG TABLET,* Take 2 tablets by mouth twice* LEVETIRACETAM 500 MG TABLET Take 500 mg by mouth once cora* MULTIVITAMIN WITH MINERALS TA* Take 1 tablet by mouth four t* TRIAMCINOLONE ACETONIDE 0.1 %* 1 application by DENTAL route* DIPHENHYDRAMINE 25 MG CAPSULE Take 25 mg by mouth twice cora* CRANBERRY CONCENTRATE-ASCORBI* Take 140 mg by mouth twice da* BLOOD SUGAR DIAGNOSTIC STRIPS Use as instructed SYRINGE (DISPOSABLE) 60 ML Use daily as directed. Dx: v* BACLOFEN 10 MG TABLET Take 1 tablet by mouth three * PRECISION XTRA TEST STRIPS Test blood sugars once daily * Problem List As Of Date 08/24/2018 Noted Resolved Essential hypertension [I10] More... DEPRESSIVE DISORDER NEC [F32.9] SACROILIITIS NEC [M46.1] INTERNAL DERANGEMENT KNEE-CHRONIC CHONDROMALACI*INVALID FOR* DYSMETABOLIC SYNDROME X [E88.81] INVALID FOR* Spinal stenosis, lumbar region, without neuroge*INVALID FOR*10/24/2016 MORBID OBESITY [E66.01] INVALID FOR* More... VITAMIN D DEFICIENCY NOS [E55.9] INVALID FOR* More... Knee fracture, left [PQQ8124] INVALID FOR* More... Septic shock [A41.9, R65.21] INVALID FOR* Suprapubic catheter [Z93.59] INVALID FOR* More... Lower urinary tract infectious disease [N39.0] INVALID FOR* Hematuria [R31.9] INVALID FOR* Urinary retention [R33.9] INVALID FOR* Polypharmacy [Z79.899] INVALID FOR* Controlled substance agreement signed [Z79.899] INVALID FOR* Chronic pain [G89.29] INVALID FOR* Kidney stone [N20.0] INVALID FOR* Degenerative arthritis of knee, bilateral [M17.*INVALID FOR* Shoulder capsulitis [M75.80] INVALID FOR* Chronic pain syndrome [G89.4] INVALID FOR* Chronic midline low back pain with bilateral sc*INVALID FOR* Spinal stenosis, lumbar region, with neurogenic*INVALID FOR* Decubitus skin ulcer [L89.90] INVALID FOR* Decubitus ulcer, stage 2 [L89.92] INVALID FOR* Controlled type 2 diabetes mellitus without com*INVALID FOR* More... Sacral decubitus ulcer [L89.159] INVALID FOR*03/28/2018 Decubitus ulcer of right perineal ischial regio*INVALID FOR*03/28/2018 Encounter Status:Closed by HECTOR CROCKER PA-C on 08/28/18 CNCO Observed: 08/20/2018 Status: COMPLETED Source: READER 3:39 PM [facility] REPOSITORY [facility] ID: [id number] Author: Mammography Coordinator Service: (none) Author Type: Physician Type: Letter Filed: 08/21/2018 11:32 PM Note Text: August 20, 2018 PID: [id number] Isela Camarena [address] [place] [address] Dear Ms. Camarena, We are pleased to inform you that the results of your recent breast imaging exam on 08/20/2018 are normal. Early detection of cancer is very important. We also understand recommendations regarding breast cancer screening are controversial. Please discuss with your primary care provider which strategy is best for you and whether a mammogram is right for you. Your imaging studies and report will be kept on file at [facility] as part of your permanent medical record and are available for your continuing care. Thank you for allowing us to help in meeting your health care needs. Sincerely, Dr. Ortega Interpreting Radiologist [facility] (Normal over 40) PROGRESS Observed: 08/20/2018 Status: COMPLETED Source: READER 1:53 PM [facility] REPOSITORY HNO ID: [id number] Author: Bhavani Segura Service: (none) Author Type: (none) Type: Progress Notes Filed: 08/20/2018 1:53 PM Note Text: Radiology Service Progress Note PATIENT NAME: Isela Camarena DATE OF SERVICE: August 20, 2018 TIME: 1:53 PM PATIENT IDENTITY VERIFICATION COMPLETED USING TWO (2) METHODS: Patient confirmed name verbally and Date of . PATIENT GENDER DATA: Female. status: : No status: NO. PATIENT RELEVANT IMPLANT DATA REVIEWED: Not Applicable RADIOLOGY DEPARTMENT: [facility] bilateral screening mammogram PERIPHERAL IV DATA: Not applicable SIGNED BY: Bhavani Segura August 20, 2018 1:53 PM JANA SCREENING Observed: 08/20/2018 Status: F Source: READER 1:32 PM [facility] REPOSITORY * * *Final Report* * * DATE OF EXAM: Aug 20 2018 1:32PM [facility] - [facility] SCREENING / PROCEDURE REASON: Encounter for screening mammogram for malignant neoplasm of breast * * * * Physician Interpretation * * * * RESULT: #[id number] - [facility] SCREENING BILATERAL DIGITAL SCREENING MAMMOGRAM WITH CAD: 08/20/2018 HISTORY: Encounter For Screening Mammogram For Malignant Neoplasm Of Breast /Screening Mammogram - patient reports NO breast symptoms /Priors available for comparison. RESULT: TECHNIQUE: The study was acquired using full field digital technology and interpreted from soft copy. Current study was also evaluated with a Computer Aided Detection (CAD). Comparison is made to exams dated: 10/20/2016 mammogram - [facility], 11/27/2013 mammogram, 02/27/2013 mammogram - [facility], and 02/06/2013 mammogram - [facility]. There are scattered fibroglandular elements in both breasts. There is a biopsy clip in the left breast. No significant masses, calcifications, or other findings are seen in either breast. There has been no significant interval change. IMPRESSION: NEGATIVE There is no mammographic evidence of malignancy. A 1 year screening mammogram is recommended. Melvin Ortega M.D. tr/penrad:08/20/2018 15:39:57 Python Java Developer: Bhavani Figueroa RT(Ben)(Brenda), [facility] letter sent: Normal over 40 Mammogram BI-RADS: 1 Negative Multiple national specialty organizations have released breast cancer screening guidelines for women at average risk for developing breast cancer - guidelines that are based on both evidence and opinion, yet differ on when to start and how often to screen for breast cancer. With representation from Breast Imaging, Internal Medicine, Women's Health, Family Medicine, and Medical/Surgical Oncology, the [facility] has carefully reviewed the data and reached the following consensus: 1) All women should engage in shared decision-making with their providers to decide when to start and how often to screen; 2) All women should have the opportunity to start screening mammography at age 40; 3) For women ages 45-55, we recommend annual screening mammograms; 4) For women ages 55 and over, we support both the transition from an annual to a biennial interval if this aligns more with patient's values and preferences, or continuation with annual screening; 5) All women should discuss with their providers when to stop screening mammograms. Habilitation Worker: Sami Transcribe Date/Time: Aug 20 2018 12:56P Dictated by: MELVIN ORTEGA MD This examination was interpreted and the report reviewed and electronically signed by: MELVIN ORTEGA MD on Aug 20 2018 3:39PM EST [id number] PROGRESS Observed: 07/30/2018 Status: COMPLETED Source: READER 1:24 PM [facility] HNO ID: [id number] Author: Geraldine Valencia Service: (none) Author Type: Physician Type: Progress Notes Filed: 07/30/2018 5:29 PM Note Text: Reason for Visit Patient presents with: Established Patient: 4 month follow up Isela Camarena is a 72 year old female who presents here today for Above Complaints Health Maintenance DILATED RETINAL EXAM DIABETIC FOOT EXAM BP CONTROLLED (<130/80) FECAL OCCULT BLOOD MAMMOGRAM LDL CHOLESTEROL HPI Dr. Robertson's director inpatient headache program has cut down the gabapentin and she has been feeling better overall. She needs her lasix, prinivil, [place]........refilled. Her hba1c is 6.2 she is a well controlled diabetic, we need to get reports of her diabetic eye exam. She will get me records of her diabetic foot exam. Her left leg has not gotten much strength in it. No problem-specific Assessment AND Plan notes found for this encounter. PAST MEDICAL HISTORY Diagnosis Date - Diabetes 1.5, managed as type 1 (HCC) - Fracture 03/2012 left femur break - Hypertension - Morbid obesity (HCC) - Obesity, unspecified - Obstructive sleep apnea - Osteoarthrosis, unspecified whether generalized or localized, other specified sites - PMH - PAST MEDICAL HISTORY OF desmorphic metabolic syndrome - Sacroiliitis, not elsewhere classified (HCC) - Septicemia ([facility]) 10/2010 with resp and renal failure requiring METAL TEMPERER. - Spinal stenosis, other than cervical - Suprapubic catheter ([facility]) - Unspecified essential hypertension - Unspecified urinary incontinence - Unspecified vitamin D deficiency 01/22/2009 PAST SURGICAL HISTORY Procedure Laterality Date - APPENDECTOMY 1957 - PAST SURGICAL HISTORY OF lt knee cartilage repair surgery - PAST SURGICAL HISTORY OF 2010 suprapubic catheter insertion - REMOVAL GALLBLADDER 1993 - TOTAL ABDOM HYSTERECTOMY 1993 FAMILY HISTORY Problem Relation Age of Onset - Coronary Artery Disease Father - Hypertension Father - Hypertension Mother - Hypertension Sister - Lipids Father - Diabetes Father - Diabetes Paternal Grandmother Social History Substance Use Topics - Smoking status: Never Smoker - Smokeless tobacco: Never Used - Alcohol use No Past medical history, appointments, medications, allergies reviewed. Pertinent Lab/Diagnostic Studies are reviewed and discussed today Current Outpatient Prescriptions: - venlafaxine (EFFEXOR) 75 mg tablet - ranitidine (ZANTAC) 150 mg tablet - mupirocin (BACTROBAN) 2 % ointment - nystatin (MYCOSTATIN) powder - furosemide (LASIX) 20 mg tablet - lisinopril (PRINIVIL) 10 mg tablet - metFORMIN (GLUCOPHAGE) 500 mg tablet - pantoprazole DR (PROTONIX) 40 mg tablet - pravastatin (PRAVACHOL) 20 mg tablet - COMPOUNDED PRESCRIPTION - HYDROcodone-acetaminophen (NORCO) 5-325 mg per tablet - albuterol HFA (VENTOLIN HFA) 90 mcg/actuation inhaler - oxybutynin ER (DITROPAN XL) 15 mg 24 hr Extended Rel Tab - metoprolol succinate ER (TOPROL XL) 25 mg 24 hr tablet - nitrofurantoin monohydrate and macrocrystal (MACROBID) 100 mg capsule - ciprofloxacin HCl (CIPRO) 500 mg tablet - fluticasone (FLONASE) 50 mcg/actuation nasal spray - alpha tocopheryl acetate (VITAMIN E) 400 unit capsule - cyanocobalamin (VITAMIN B-12) 1,000 mcg tab - Cholecalciferol, Vitamin D3, (VITAMIN D) 1,000 unit cap - Potassium 99 mg tab - gabapentin (NEURONTIN) 300 mg capsule - Catheter 24 Fr misc - diphenoxylate-atropine (LOMOTIL) 2.5-0.025 mg per tablet - oxyCODONE-acetaminophen (PERCOCET) 5-325 mg tablet - guaiFENesin (MUCINEX) 600 mg 12 hr tablet - levETIRAcetam (KEPPRA) 500 mg tablet - COMPOUNDED PRESCRIPTION - Sodium Chloride 0.9 % soln - Catheter 24 Fr misc - COMPOUNDED PRESCRIPTION - COMPOUNDED PRESCRIPTION - COMPOUNDED PRESCRIPTION - multivitamin with minerals (VISION/OPTIGEN) tablet - OXcarbazepine (TRILEPTAL) 300 mg tablet - triamcinolone (KENALOG IN ORABASE) 0.1 % paste - COMPOUNDED PRESCRIPTION - COMPOUNDED PRESCRIPTION - COMPOUNDED PRESCRIPTION - diphenhydrAMINE (BENADRYL) 25 mg capsule - Cranberry-Vitamin C-Vitamin E (CRANBERRY CONCENTRATE) 140- 100 mg cap - blood sugar diagnostic (GLUCOCARD VITAL SENSOR) test strip - COMPOUNDED PRESCRIPTION - COMPOUNDED PRESCRIPTION - syringe (BD SYRINGE) 60 mL Syrg - baclofen 10 mg tablet - blood sugar diagnostic(PRECISION XTRA TEST STRIPS) Review of Systems CONSTITUTIONAL: No fevers, chills night sweats, unintended weight loss CARDIOVASCULAR: No chest pain, dyspnea, palpitations, orthopnea, PND, ankle edema. PULM: No dyspnea, unexplained cough. GI: No dysphagia/odynophagia, problematic reflux, constipation, diarrhea, changes in stool habits, hematochezia, melena. : No new urinary complaints, including dysuria, gross hematuria or pyuria. NEURO: No new balance problems, peripheral weakness/paresthesias or numbness of concern. Physical Exam BP 112/66 (BP Site: Right Arm, BP Position: Sitting, BP Cuff Size: Large Adult) Resp 14 Ht 167.6 cm (5' 6) BMI 50.84 kg/m? General appearance: Well appearing, alert, in no acute distress, well nourished. Skin: Skin color, texture, turgor normal, no suspicious rashes or lesions Head: Normocephalic, no masses, lesions, tenderness or abnormalities Eyes: Anicteric sclera. Pupils are equally round and reactive to light. Extraocular movements are intact. Lungs: Lungs clear to auscultation. No wheezing, rhonchi, rales Heart: RRR without murmur, gallop, or rubs. ASSESSMENT/PLAN: 1. Breast cancer screening by mammogram - ICD9: V76.12, ICD10: Z12.31 (primary diagnosis) - Completed pelvic and breast exam - Encouraged monthly BSE - Follow up for annual exam in one year. - JANA SCREENING 2. Essential hypertension - ICD9: 401.9, ICD10: I10 - good control - Recommended regular aerobic exercise. - Recommend home blood pressure monitoring, to bring results in on next visit - Goal of BP <130/80 - FUROSEMIDE 20 MG TABLET - LISINOPRIL 10 MG TABLET 3. Chronic pain syndrome - ICD9: 338.4, ICD10: G89.4 - HYDROCODONE 5 MG-ACETAMINOPHEN 325 MG TABLET GERALDINE VALENCIA MD CNOV Observed: 07/30/2018 Status: COMPLETED Source: READER 1:00 PM [facility] REPOSITORY Office Visit (INTMWS) ISELA CAMARENA ([id number]) 1945 F Date Time Provider Department 07/30/18 1:00 PM GERALDINE VALENCIA INTMWS During your visit today, we recorded the following information about you: Respiration Blood pressure Height 14/minute 112/66 1.676 m GERALDINE VALENCIA MD 07/30/2018 5:29 PM Signed Reason for Visit Patient presents with: Established Patient: 4 month follow up Isela Camarena is a 72 year old female who presents here today for Above Complaints Health Maintenance DILATED RETINAL EXAM DIABETIC FOOT EXAM BP CONTROLLED (<130/80) FECAL OCCULT BLOOD MAMMOGRAM LDL CHOLESTEROL HPI Dr. Robertson's director inpatient headache program has cut down the gabapentin and she has been feeling better overall. She needs her lasix, prinivil, [place]........refilled. Her hba1c is 6.2 she is a well controlled diabetic, we need to get reports of her diabetic eye exam. She will get me records of her diabetic foot exam. Her left leg has not gotten much strength in it. No problem-specific Assessment AND Plan notes found for this encounter. PAST MEDICAL HISTORY Diagnosis Date - Diabetes 1.5, managed as type 1 (HCC) - Fracture 03/2012 left femur break - Hypertension - Morbid obesity (HCC) - Obesity, unspecified - Obstructive sleep apnea - Osteoarthrosis, unspecified whether generalized or localized, other specified sites - PMH - PAST MEDICAL HISTORY OF desmorphic metabolic syndrome - Sacroiliitis, not elsewhere classified (HCC) - Septicemia ([facility]) 10/2010 with resp and renal failure requiring METAL TEMPERER. - Spinal stenosis, other than cervical - Suprapubic catheter ([facility]) - Unspecified essential hypertension - Unspecified urinary incontinence - Unspecified vitamin D deficiency 01/22/2009 PAST SURGICAL HISTORY Procedure Laterality Date - APPENDECTOMY 1957 - PAST SURGICAL HISTORY OF lt knee cartilage repair surgery - PAST SURGICAL HISTORY OF 2010 suprapubic catheter insertion - REMOVAL GALLBLADDER 1993 - TOTAL ABDOM HYSTERECTOMY 1993 FAMILY HISTORY Problem Relation Age of Onset - Coronary Artery Disease Father - Hypertension Father - Hypertension Mother - Hypertension Sister - Lipids Father - Diabetes Father - Diabetes Paternal Grandmother Social History Substance Use Topics - Smoking status: Never Smoker - Smokeless tobacco: Never Used - Alcohol use No Past medical history, appointments, medications, allergies reviewed. Pertinent Lab/Diagnostic Studies are reviewed and discussed today Current Outpatient Prescriptions: - venlafaxine (EFFEXOR) 75 mg tablet - ranitidine (ZANTAC) 150 mg tablet - mupirocin (BACTROBAN) 2 % ointment - nystatin (MYCOSTATIN) powder - furosemide (LASIX) 20 mg tablet - lisinopril (PRINIVIL) 10 mg tablet - metFORMIN (GLUCOPHAGE) 500 mg tablet - pantoprazole DR (PROTONIX) 40 mg tablet - pravastatin (PRAVACHOL) 20 mg tablet - COMPOUNDED PRESCRIPTION - HYDROcodone-acetaminophen (NORCO) 5-325 mg per tablet - albuterol HFA (VENTOLIN HFA) 90 mcg/actuation inhaler - oxybutynin ER (DITROPAN XL) 15 mg 24 hr Extended Rel Tab - metoprolol succinate ER (TOPROL XL) 25 mg 24 hr tablet - nitrofurantoin monohydrate and macrocrystal (MACROBID) 100 mg capsule - ciprofloxacin HCl (CIPRO) 500 mg tablet - fluticasone (FLONASE) 50 mcg/actuation nasal spray - alpha tocopheryl acetate (VITAMIN E) 400 unit capsule - cyanocobalamin (VITAMIN B-12) 1,000 mcg tab - Cholecalciferol, Vitamin D3, (VITAMIN D) 1,000 unit cap - Potassium 99 mg tab - gabapentin (NEURONTIN) 300 mg capsule - Catheter 24 Fr misc - diphenoxylate-atropine (LOMOTIL) 2.5-0.025 mg per tablet - oxyCODONE-acetaminophen (PERCOCET) 5-325 mg tablet - guaiFENesin (MUCINEX) 600 mg 12 hr tablet - levETIRAcetam (KEPPRA) 500 mg tablet - COMPOUNDED PRESCRIPTION - Sodium Chloride 0.9 % soln - Catheter 24 Fr misc - COMPOUNDED PRESCRIPTION - COMPOUNDED PRESCRIPTION - COMPOUNDED PRESCRIPTION - multivitamin with minerals (VISION/OPTIGEN) tablet - OXcarbazepine (TRILEPTAL) 300 mg tablet - triamcinolone (KENALOG IN ORABASE) 0.1 % paste - COMPOUNDED PRESCRIPTION - COMPOUNDED PRESCRIPTION - COMPOUNDED PRESCRIPTION - diphenhydrAMINE (BENADRYL) 25 mg capsule - Cranberry-Vitamin C-Vitamin E (CRANBERRY CONCENTRATE) 140- 100 mg cap - blood sugar diagnostic (GLUCOCARD VITAL SENSOR) test strip - COMPOUNDED PRESCRIPTION - COMPOUNDED PRESCRIPTION - syringe (BD SYRINGE) 60 mL Syrg - baclofen 10 mg tablet - blood sugar diagnostic(PRECISION XTRA TEST STRIPS) Review of Systems CONSTITUTIONAL: No fevers, chills night sweats, unintended weight loss CARDIOVASCULAR: No chest pain, dyspnea, palpitations, orthopnea, PND, ankle edema. PULM: No dyspnea, unexplained cough. GI: No dysphagia/odynophagia, problematic reflux, constipation, diarrhea, changes in stool habits, hematochezia, melena. : No new urinary complaints, including dysuria, gross hematuria or pyuria. NEURO: No new balance problems, peripheral weakness/paresthesias or numbness of concern. Physical Exam BP 112/66 (BP Site: Right Arm, BP Position: Sitting, BP Cuff Size: Large Adult) Resp 14 Ht 167.6 cm (5' 6) BMI 50.84 kg/m? General appearance: Well appearing, alert, in no acute distress, well nourished. Skin: Skin color, texture, turgor normal, no suspicious rashes or lesions Head: Normocephalic, no masses, lesions, tenderness or abnormalities Eyes: Anicteric sclera. Pupils are equally round and reactive to light. Extraocular movements are intact. Lungs: Lungs clear to auscultation. No wheezing, rhonchi, rales Heart: RRR without murmur, gallop, or rubs. ASSESSMENT/PLAN: 1. Breast cancer screening by mammogram - ICD9: V76.12, ICD10: Z12.31 (primary diagnosis) - Completed pelvic and breast exam - Encouraged monthly BSE - Follow up for annual exam in one year. - JANA SCREENING 2. Essential hypertension - ICD9: 401.9, ICD10: I10 - good control - Recommended regular aerobic exercise. - Recommend home blood pressure monitoring, to bring results in on next visit - Goal of BP <130/80 - FUROSEMIDE 20 MG TABLET - LISINOPRIL 10 MG TABLET 3. Chronic pain syndrome - ICD9: 338.4, ICD10: G89.4 - HYDROCODONE 5 MG-ACETAMINOPHEN 325 MG TABLET GERALDINE VALENCIA MD Referring Provider: GERALDINE VALENCIA [[id number]] Allergies As of Date: 07/30/2018 Noted Allergy Reaction IRON 03/06/2013 14 - Other: See Comments Comments: From IV form; heart palpitations, chest pressure ADHESIVE TAPE (ROSINS) 10/19/2006 Comments: Blisters INFLUENZA VIRUS VACCINES 09/04/2012 12 - Shortness of Breath Comments: severe wheezing seasonal allergies [Other] 04/17/2006 SULFA (SULFONAMIDE ANTIBIOTICS) 07/11/2005 12 - Shortness of Breath Comments: Bactrim does not work for her MOBIC (MELOXICAM) 07/20/2006 8 - GI Upset Date Reviewed: 07/30/2018 Reviewed by: Jaqueline Strauss LPN - Fully Assessed Reason for Visit: Established Patient [175] Cmt: 4 month follow up Primary Visit Diagnosis:Breast cancer screening by mammogram [Z12.31] Other Visit Diagnoses:Essential hypertension [I10] Chronic pain syndrome [G89.4] Controlled type 2 diabetes mellitus without complication, without long-term current use of insulin (HCC) [E11.9] Order(s):furosemide (LASIX) 20 mg tabletTake 1 tablet by mouth three times daily.Disp: 270 tabletRfl: 3 lisinopril (PRINIVIL) 10 mg tabletTake 1 tablet by mouth once daily.Disp: 90 tabletRfl: 3 HYDROcodone-acetaminophen (NORCO) 5-325 mg per tabletTake 1 tablet by mouth every 6 hours as needed for up to 30 days. Earliest Fill Date: 07/30/18Disp: 30 tabletRfl: 0 JANA SCREENING [[id number]] Order #: [id number] FUTURE HGB A1C [[id number]] Order #: [id number] FUTURE Prescriptions as of 07/30/2018 Sig: VENLAFAXINE 75 MG TABLET Take 1 tablet by mouth three * MUPIROCIN 2 % TOPICAL OINTMENT Apply 1 application to affect* NYSTATIN 100,000 UNIT/GRAM TO* Apply 1 application to affect* METFORMIN 500 MG TABLET Take 1 tablet by mouth twice * PANTOPRAZOLE 40 MG TABLET,DEL* Take 1 tablet by mouth once d* PRAVASTATIN 20 MG TABLET Take 1 tablet by mouth daily * COMPOUNDED PRESCRIPTION Hospital bed control OXYBUTYNIN CHLORIDE ER 15 MG * Take 1 tablet by mouth once d* METOPROLOL SUCCINATE ER 25 MG* Take 1 tablet by mouth once d* NITROFURANTOIN MONOHYDRATE AND * Take 1 capsule by mouth once * VITAMIN E 400 UNIT CAPSULE Take 1 capsule by mouth twice* POTASSIUM 99 MG TABLET Take 1 tablet by mouth once d* LEVETIRACETAM 500 MG TABLET Take 500 mg by mouth once cora* FUROSEMIDE 20 MG TABLET Take 1 tablet by mouth three * LISINOPRIL 10 MG TABLET Take 1 tablet by mouth once d* HYDROCODONE 5 MG-ACETAMINOPHE* Take 1 tablet by mouth every * RANITIDINE 150 MG TABLET Take 1 tablet by mouth twice * ALBUTEROL SULFATE HFA 90 MCG/* Inhale 2 Puffs as instructed * CIPROFLOXACIN 500 MG TABLET Take 1 tablet by mouth twice * FLUTICASONE 50 MCG/ACTUATION * Use 2 Sprays in each nostril * CYANOCOBALAMIN (VIT B-12) 1,0* Take 1 tablet by mouth once d* CHOLECALCIFEROL (VITAMIN D3) * Take 1 capsule by mouth once * GABAPENTIN 300 MG CAPSULE Takes 900 in the morning, 120* CATHETER 24 FR 24 FR SILVER henry catheter. * DIPHENOXYLATE-ATROPINE 2.5 MG* Take 1 tablet by mouth four t* OXYCODONE-ACETAMINOPHEN 5 MG-* GUAIFENESIN ER 600 MG TABLET,* Take 2 tablets by mouth twice* COMPOUNDED PRESCRIPTION Flotation pillow for the scoo* SODIUM CHLORIDE 0.9 % SOLUTION To use for catheter irrigatio* CATHETER 24 FR 24 Fr silicone henry catheter* COMPOUNDED PRESCRIPTION Drainage bags Suprapubic Ca* COMPOUNDED PRESCRIPTION Split Gauze pads 4x4 Dx: U* COMPOUNDED PRESCRIPTION Insertion kit Suprapubic Ca* MULTIVITAMIN WITH MINERALS TA* Take 1 tablet by mouth four t* TRIAMCINOLONE ACETONIDE 0.1 %* 1 application by DENTAL route* COMPOUNDED PRESCRIPTION Suprapubic Irrigating kit * COMPOUNDED PRESCRIPTION Urinary night bags. 2000ml * COMPOUNDED PRESCRIPTION Catheter [address] catheter* DIPHENHYDRAMINE 25 MG CAPSULE Take 25 mg by mouth twice cora* CRANBERRY CONCENTRATE-ASCORBI* Take 140 mg by mouth twice da* BLOOD SUGAR DIAGNOSTIC STRIPS Use as instructed COMPOUNDED PRESCRIPTION Home oxygen. 2L continuous. N* COMPOUNDED PRESCRIPTION 10 cc syringe Suprapubic* SYRINGE (DISPOSABLE) 60 ML Use daily as directed. Dx: v* BACLOFEN 10 MG TABLET Take 1 tablet by mouth three * PRECISION XTRA TEST STRIPS Test blood sugars once daily * Problem List As Of Date 07/30/2018 Noted Resolved Essential hypertension [I10] More... DEPRESSIVE DISORDER NEC [F32.9] SACROILIITIS NEC [M46.1] INTERNAL DERANGEMENT KNEE-CHRONIC CHONDROMALACI*INVALID FOR* DYSMETABOLIC SYNDROME X [E88.81] INVALID FOR* Spinal stenosis, lumbar region, without neuroge*INVALID FOR*10/24/2016 MORBID OBESITY [E66.01] INVALID FOR* More... VITAMIN D DEFICIENCY NOS [E55.9] INVALID FOR* More... Knee fracture, left [[id number]] INVALID FOR* More... Septic shock [A41.9, R65.21] INVALID FOR* Suprapubic catheter [Z93.59] INVALID FOR* More... Lower urinary tract infectious disease [N39.0] INVALID FOR* Hematuria [R31.9] INVALID FOR* Urinary retention [R33.9] INVALID FOR* Polypharmacy [Z79.899] INVALID FOR* Controlled substance agreement signed [Z79.899] INVALID FOR* Chronic pain [G89.29] INVALID FOR* Kidney stone [N20.0] INVALID FOR* Degenerative arthritis of knee, bilateral [M17.*INVALID FOR* Shoulder capsulitis [M75.80] INVALID FOR* Chronic pain syndrome [G89.4] INVALID FOR* Chronic midline low back pain with bilateral sc*INVALID FOR* Spinal stenosis, lumbar region, with neurogenic*INVALID FOR* Decubitus skin ulcer [L89.90] INVALID FOR* Decubitus ulcer, stage 2 [L89.92] INVALID FOR* Controlled type 2 diabetes mellitus without com*INVALID FOR* More... Sacral decubitus ulcer [L89.159] INVALID FOR*03/28/2018 Decubitus ulcer of right perineal ischial regio*INVALID FOR*03/28/2018 Prescriptions ordered this encounter Disp Refills Start End FUROSEMIDE 20 MG TABLET 270 * 3 07/30/2018 Route: ORAL Sig: Take 1 tablet by mouth three times daily. LISINOPRIL 10 MG TABLET 90 t* 3 07/30/2018 Route: ORAL Sig: Take 1 tablet by mouth once daily. HYDROCODONE 5 MG-ACETAMINOPHEN 325 M* 30 t* 0 07/30/2018 08/29/2018 Class: Print RX Route: ORAL Sig: Take 1 tablet by mouth every 6 hours as needed for up to 30 days. Earliest Fill Date: 07/30/18 Medications Discontinued During This Encounter OXcarbazepine (TRILEPTAL) 300 mg tab* 10/14/2015 07/30/2018 Class: Historical Med Route: ORAL Sig: Take 1 tablet by mouth four times daily. Disc: Reason for discontinue is not on file. furosemide (LASIX) 20 mg tablet 270 * 3 03/28/2018 07/30/2018 Route: ORAL Sig: Take 1 tablet by mouth three times daily. Disc: Reason for discontinue is not on file. lisinopril (PRINIVIL) 10 mg tablet 90 t* 3 03/28/2018 07/30/2018 Route: ORAL Sig: Take 1 tablet by mouth once daily. Disc: Reason for discontinue is not on file. HYDROcodone-acetaminophen (NORCO) 5-* 30 t* 0 03/28/2018 07/30/2018 Class: Print RX Route: ORAL Sig: Take 1 tablet by mouth every 6 hours as needed for up to 30 days. Earliest Fill Date: 03/28/18 Disc: Reason for discontinue is not on file. Encounter Status:Closed by GERALDINE VALENCIA MD on 07/30/18 PROGRESS Observed: 07/20/2018 Status: COMPLETED Source: READ[place] 11:03 AM [facility] REPOSITORY HNO ID: [id number] Author: Diane Nielsen Ma Service: (none) Author Type: (none) Type: Progress Notes Filed: 07/23/2018 5:48 PM Note Text: With automated wheelchair leaned back, the old suprapubic tube was removed with no difficulty. The area was prepped and a new 24 Fr Henry was inserted through the stoma site into the bladder. The balloon was inflated with 30 cc's of sterile saline. The catheter irrigated well. The pt tolerated the procedure well without complications. Follow up as planned in one month. ASHISH Murray, [place], JENNIFER VELASCO Observed: 07/20/2018 Status: COMPLETED Source: READER 10:00 AM [facility] REPOSITORY Office Visit (UROLWS) ISELA CAMARENA ([id number]) 1945 F Date Time Provider Department 07/20/18 10:00 AM HECTOR CROCKER) UROLWS During your visit today, we recorded the following information about you: Diane Nielsen Ma 07/20/2018 11:04 AM Signed With automated wheelchair leaned back, the old suprapubic tube was removed with no difficulty. The area was prepped and a new 24 Fr Henry was inserted through the stoma site into the bladder. The balloon was inflated with 30 cc's of sterile saline. The catheter irrigated well. The pt tolerated the procedure well without complications. Follow up as planned in one month. Hector Crocker, MPAS, [place], PA-C Referring Provider: GERALDINE VALENCIA [[id number]] Allergies As of Date: 07/20/2018 Noted Allergy Reaction IRON 03/06/2013 14 - Other: See Comments Comments: From IV form; heart palpitations, chest pressure ADHESIVE TAPE (ROSINS) 10/19/2006 Comments: Blisters INFLUENZA VIRUS VACCINES 09/04/2012 12 - Shortness of Breath Comments: severe wheezing seasonal allergies [Other] 04/17/2006 SULFA (SULFONAMIDE ANTIBIOTICS) 07/11/2005 12 - Shortness of Breath Comments: Bactrim does not work for her MOBIC (MELOXICAM) 07/20/2006 8 - GI Upset Date Reviewed: 07/20/2018 Reviewed by: Diane Nielsen Ma - Fully Assessed Reason for Visit: Tube Change-suprapubic [824] Primary Visit Diagnosis:Urinary retention [R33.9] Prescriptions as of 07/20/2018 Sig: VENLAFAXINE 75 MG TABLET Take 1 tablet by mouth three * RANITIDINE 150 MG TABLET Take 1 tablet by mouth twice * MUPIROCIN 2 % TOPICAL OINTMENT Apply 1 application to affect* NYSTATIN 100,000 UNIT/GRAM TO* Apply 1 application to affect* FUROSEMIDE 20 MG TABLET Take 1 tablet by mouth three * LISINOPRIL 10 MG TABLET Take 1 tablet by mouth once d* METFORMIN 500 MG TABLET Take 1 tablet by mouth twice * PANTOPRAZOLE 40 MG TABLET,DEL* Take 1 tablet by mouth once d* PRAVASTATIN 20 MG TABLET Take 1 tablet by mouth daily * COMPOUNDED PRESCRIPTION Hospital bed control HYDROCODONE 5 MG-ACETAMINOPHE* Take 1 tablet by mouth every * ALBUTEROL SULFATE HFA 90 MCG/* Inhale 2 Puffs as instructed * OXYBUTYNIN CHLORIDE ER 15 MG * Take 1 tablet by mouth once d* METOPROLOL SUCCINATE ER 25 MG* Take 1 tablet by mouth once d* NITROFURANTOIN MONOHYDRATE AND * Take 1 capsule by mouth once * CIPROFLOXACIN 500 MG TABLET Take 1 tablet by mouth twice * FLUTICASONE 50 MCG/ACTUATION * Use 2 Sprays in each nostril * VITAMIN E 400 UNIT CAPSULE Take 1 capsule by mouth twice* CYANOCOBALAMIN (VIT B-12) 1,0* Take 1 tablet by mouth once d* CHOLECALCIFEROL (VITAMIN D3) * Take 1 capsule by mouth once * POTASSIUM 99 MG TABLET Take 1 tablet by mouth once d* GABAPENTIN 300 MG CAPSULE Takes 900 in the morning, 120* CATHETER 24 FR 24 FR SILVER henry catheter. * DIPHENOXYLATE-ATROPINE 2.5 MG* Take 1 tablet by mouth four t* OXYCODONE-ACETAMINOPHEN 5 MG-* GUAIFENESIN ER 600 MG TABLET,* Take 2 tablets by mouth twice* LEVETIRACETAM 500 MG TABLET Take 500 mg by mouth once cora* COMPOUNDED PRESCRIPTION Flotation pillow for the scoo* SODIUM CHLORIDE 0.9 % SOLUTION To use for catheter irrigatio* CATHETER 24 FR 24 Fr silicone henry catheter* COMPOUNDED PRESCRIPTION Drainage bags Suprapubic Ca* COMPOUNDED PRESCRIPTION Split Gauze pads 4x4 Dx: U* COMPOUNDED PRESCRIPTION Insertion kit Suprapubic Ca* MULTIVITAMIN WITH MINERALS TA* Take 1 tablet by mouth four t* OXCARBAZEPINE 300 MG TABLET Take 1 tablet by mouth four t* TRIAMCINOLONE ACETONIDE 0.1 %* 1 application by DENTAL route* COMPOUNDED PRESCRIPTION Suprapubic Irrigating kit * COMPOUNDED PRESCRIPTION Urinary night bags. 2000ml * COMPOUNDED PRESCRIPTION Catheter [address] catheter* DIPHENHYDRAMINE 25 MG CAPSULE Take 25 mg by mouth twice cora* CRANBERRY CONCENTRATE-ASCORBI* Take 140 mg by mouth twice da* BLOOD SUGAR DIAGNOSTIC STRIPS Use as instructed COMPOUNDED PRESCRIPTION Home oxygen. 2L continuous. N* COMPOUNDED PRESCRIPTION 10 cc syringe Suprapubic* SYRINGE (DISPOSABLE) 60 ML Use daily as directed. Dx: v* BACLOFEN 10 MG TABLET Take 1 tablet by mouth three * PRECISION XTRA TEST STRIPS Test blood sugars once daily * Problem List As Of Date 07/20/2018 Noted Resolved Essential hypertension [I10] More... DEPRESSIVE DISORDER NEC [F32.9] SACROILIITIS NEC [M46.1] INTERNAL DERANGEMENT KNEE-CHRONIC CHONDROMALACI*INVALID FOR* DYSMETABOLIC SYNDROME X [E88.81] INVALID FOR* Spinal stenosis, lumbar region, without neuroge*INVALID FOR*10/24/2016 MORBID OBESITY [E66.01] INVALID FOR* More... VITAMIN D DEFICIENCY NOS [E55.9] INVALID FOR* More... Knee fracture, left [[id number]] INVALID FOR* More... Septic shock [A41.9, R65.21] INVALID FOR* Suprapubic catheter [Z93.59] INVALID FOR* More... Lower urinary tract infectious disease [N39.0] INVALID FOR* Hematuria [R31.9] INVALID FOR* Urinary retention [R33.9] INVALID FOR* Polypharmacy [Z79.899] INVALID FOR* Controlled substance agreement signed [Z79.899] INVALID FOR* Chronic pain [G89.29] INVALID FOR* Kidney stone [N20.0] INVALID FOR* Degenerative arthritis of knee, bilateral [M17.*INVALID FOR* Shoulder capsulitis [M75.80] INVALID FOR* Chronic pain syndrome [G89.4] INVALID FOR* Chronic midline low back pain with bilateral sc*INVALID FOR* Spinal stenosis, lumbar region, with neurogenic*INVALID FOR* Decubitus skin ulcer [L89.90] INVALID FOR* Decubitus ulcer, stage 2 [L89.92] INVALID FOR* Controlled type 2 diabetes mellitus without com*INVALID FOR* More... Sacral decubitus ulcer [L89.159] INVALID FOR*03/28/2018 Decubitus ulcer of right perineal ischial regio*INVALID FOR*03/28/2018 Encounter Status:Closed by HECTOR CROCKER PA-C on 07/23/18 PROGRESS Observed: 06/21/2018 Status: COMPLETED Source: READER 11:31 AM [facility] REPOSITORY HNO ID: [id number] Author: Diane Nielsen Ma Service: (none) Author Type: (none) Type: Progress Notes Filed: 06/28/2018 6:04 PM Note Text: Suprapubic catheter change performed as ordered. A 24 bulgarian henry catheter was replaced using sterile technique without complications. Balloon inflated with 30cc of sterile saline. Patient tolerated procedure well. Irrigation preformed to insure proper placement without complication. Patient to follow up in 1 month. Patient to call in the interim with any problems or concerns. Hector Crocker, ASHISH, [place], JENNIFER CNOV Observed: 06/21/2018 Status: COMPLETED Source: READER 11:00 AM [facility] REPOS[facility] Office Visit (UROLWS) ISELA CAMARENA ([id number]) 1945 F Date Time Provider Department 06/21/18 11:00 AM HECTOR CROCKER) UROLWS During your visit today, we recorded the following information about you: Diane Nielsen Ma 06/21/2018 11:31 AM Signed Suprapubic catheter change performed as ordered. A 24 bulgarian henry catheter was replaced using sterile technique without complications. Balloon inflated with 30cc of sterile saline. Patient tolerated procedure well. Irrigation preformed to insure proper placement without complication. Patient to follow up in 1 month. Patient to call in the interim with any problems or concerns. Hector Crocker, MPAS, MT, PA-C Referring Provider: GERALDINE VALENCIA [[id number]] Allergies As of Date: 06/21/2018 Noted Allergy Reaction IRON 03/06/2013 14 - Other: See Comments Comments: From IV form; heart palpitations, chest pressure ADHESIVE TAPE (ROSINS) 10/19/2006 Comments: Blisters INFLUENZA VIRUS VACCINES 09/04/2012 12 - Shortness of Breath Comments: severe wheezing seasonal allergies [Other] 04/17/2006 SULFA (SULFONAMIDE ANTIBIOTICS) 07/11/2005 12 - Shortness of Breath Comments: Bactrim does not work for her MOBIC (MELOXICAM) 07/20/2006 8 - GI Upset Date Reviewed: 06/21/2018 Reviewed by: Diane Nielsen Ma - Fully Assessed Reason for Visit: Follow Up [171] Tube Change-suprapubic [824] Primary Visit Diagnosis:Urinary retention [R33.9] Prescriptions as of 06/21/2018 Sig: RANITIDINE 150 MG TABLET Take 1 tablet by mouth twice * VENLAFAXINE 75 MG TABLET Take 1 tablet by mouth twice * MUPIROCIN 2 % TOPICAL OINTMENT Apply 1 application to affect* NYSTATIN 100,000 UNIT/GRAM TO* Apply 1 application to affect* FUROSEMIDE 20 MG TABLET Take 1 tablet by mouth three * LISINOPRIL 10 MG TABLET Take 1 tablet by mouth once d* METFORMIN 500 MG TABLET Take 1 tablet by mouth twice * PANTOPRAZOLE 40 MG TABLET,DEL* Take 1 tablet by mouth once d* PRAVASTATIN 20 MG TABLET Take 1 tablet by mouth daily * COMPOUNDED PRESCRIPTION Hospital bed control HYDROCODONE 5 MG-ACETAMINOPHE* Take 1 tablet by mouth every * ALBUTEROL SULFATE HFA 90 MCG/* Inhale 2 Puffs as instructed * OXYBUTYNIN CHLORIDE ER 15 MG * Take 1 tablet by mouth once d* METOPROLOL SUCCINATE ER 25 MG* Take 1 tablet by mouth once d* NITROFURANTOIN MONOHYDRATE AND * Take 1 capsule by mouth once * CIPROFLOXACIN 500 MG TABLET Take 1 tablet by mouth twice * FLUTICASONE 50 MCG/ACTUATION * Use 2 Sprays in each nostril * VITAMIN E 400 UNIT CAPSULE Take 1 capsule by mouth twice* CYANOCOBALAMIN (VIT B-12) 1,0* Take 1 tablet by mouth once d* CHOLECALCIFEROL (VITAMIN D3) * Take 1 capsule by mouth once * POTASSIUM 99 MG TABLET Take 1 tablet by mouth once d* GABAPENTIN 300 MG CAPSULE Takes 900 in the morning, 120* CATHETER 24 FR 24 FR SILVER henry catheter. * DIPHENOXYLATE-ATROPINE 2.5 MG* Take 1 tablet by mouth four t* OXYCODONE-ACETAMINOPHEN 5 MG-* GUAIFENESIN ER 600 MG TABLET,* Take 2 tablets by mouth twice* LEVETIRACETAM 500 MG TABLET Take 500 mg by mouth once cora* COMPOUNDED PRESCRIPTION Flotation pillow for the scoo* SODIUM CHLORIDE 0.9 % SOLUTION To use for catheter irrigatio* CATHETER 24 FR 24 Fr silicone henry catheter* COMPOUNDED PRESCRIPTION Drainage bags Suprapubic Ca* COMPOUNDED PRESCRIPTION Split Gauze pads 4x4 Dx: U* COMPOUNDED PRESCRIPTION Insertion kit Suprapubic Ca* MULTIVITAMIN WITH MINERALS TA* Take 1 tablet by mouth four t* OXCARBAZEPINE 300 MG TABLET Take 1 tablet by mouth four t* TRIAMCINOLONE ACETONIDE 0.1 %* 1 application by DENTAL route* COMPOUNDED PRESCRIPTION Suprapubic Irrigating kit * COMPOUNDED PRESCRIPTION Urinary night bags. 2000ml * COMPOUNDED PRESCRIPTION Catheter [address]* DIPHENHYDRAMINE 25 MG CAPSULE Take 25 mg by mouth twice cora* CRANBERRY CONCENTRATE-ASCORBI* Take 140 mg by mouth twice da* BLOOD SUGAR DIAGNOSTIC STRIPS Use as instructed COMPOUNDED PRESCRIPTION Home oxygen. 2L continuous. N* COMPOUNDED PRESCRIPTION 10 cc syringe Suprapubic* SYRINGE (DISPOSABLE) 60 ML Use daily as directed. Dx: v* BACLOFEN 10 MG TABLET Take 1 tablet by mouth three * PRECISION XTRA TEST STRIPS Test blood sugars once daily * Problem List As Of Date 06/21/2018 Noted Resolved Essential hypertension [I10] More... DEPRESSIVE DISORDER NEC [F32.9] SACROILIITIS NEC [M46.1] INTERNAL DERANGEMENT KNEE-CHRONIC CHONDROMALACI*INVALID FOR* DYSMETABOLIC SYNDROME X [E88.81] INVALID FOR* Spinal stenosis, lumbar region, without neuroge*INVALID FOR*10/24/2016 MORBID OBESITY [E66.01] INVALID FOR* More... VITAMIN D DEFICIENCY NOS [E55.9] INVALID FOR* More... Knee fracture, left [[id number]] INVALID FOR* More... Septic shock [A41.9, R65.21] INVALID FOR* Suprapubic catheter [Z93.59] INVALID FOR* More... Lower urinary tract infectious disease [N39.0] INVALID FOR* Hematuria [R31.9] INVALID FOR* Urinary retention [R33.9] INVALID FOR* Polypharmacy [Z79.899] INVALID FOR* Controlled substance agreement signed [Z79.899] INVALID FOR* Chronic pain [G89.29] INVALID FOR* Kidney stone [N20.0] INVALID FOR* Degenerative arthritis of knee, bilateral [M17.*INVALID FOR* Shoulder capsulitis [M75.80] INVALID FOR* Chronic pain syndrome [G89.4] INVALID FOR* Chronic midline low back pain with bilateral sc*INVALID FOR* Spinal stenosis, lumbar region, with neurogenic*INVALID FOR* Decubitus skin ulcer [L89.90] INVALID FOR* Decubitus ulcer, stage 2 [L89.92] INVALID FOR* Controlled type 2 diabetes mellitus without com*INVALID FOR* More... Sacral decubitus ulcer [L89.159] INVALID FOR*03/28/2018 Decubitus ulcer of right perineal ischial regio*INVALID FOR*03/28/2018 Encounter Status:Closed by HECTOR CROCKER PA-C on 06/28/18 PROGRESS Observed: 06/11/2018 Status: COMPLETED Source: [email or web address] 12:50 PM [facility] REPOSITORY HNO ID: [id number] Author: Braden Montgomery Service: (none) Author Type: Nurse Practitioner Type: Progress Notes Filed: 06/13/2018 8:29 AM Note Text: Order filed. Braden Montgomery APRN.CNP PROGRESS Observed: 06/11/2018 Status: COMPLETED Source: READER 12:22 PM [facility] REPOSITORY HNO ID: [id number] Author: Rosi Stafford Cma Service: (none) Author Type: (none) Type: Progress Notes Filed: 06/13/2018 8:29 AM Note Text: Patient has upcoming appointment 07/30- Lipid pending. Sending DM retinal reminder with release form. SAVANNAHTOUTREACH Observed: 06/11/2018 Status: COMPLETED Source: READER 12:00 AM [facility] REPOSITORY Patient Outreach (INTMWS) ISELA CAMARENA ([id number]) 1945 F Date Time Provider Department 06/11/18 ROSI STAFFORD ([facility]) INTMWS During your visit today, we recorded the following information about you: Rosi Stafford Cma 06/13/2018 8:29 AM Signed Patient has upcoming appointment 07/30- Lipid pending. Sending DM retinal reminder with release form. Braden Montgomery APRN.CNP 06/13/2018 8:29 AM Signed Order filed. Braden Montgomery APRN.CNP Allergies As of Date: 06/11/2018 Noted Allergy Reaction IRON 03/06/2013 14 - Other: See Comments Comments: From IV form; heart palpitations, chest pressure ADHESIVE TAPE (ROSINS) 10/19/2006 Comments: Blisters INFLUENZA VIRUS VACCINES 09/04/2012 12 - Shortness of Breath Comments: severe wheezing seasonal allergies [Other] 04/17/2006 SULFA (SULFONAMIDE ANTIBIOTICS) 07/11/2005 12 - Shortness of Breath Comments: Bactrim does not work for her MOBIC (MELOXICAM) 07/20/2006 8 - GI Upset Date Reviewed: 05/24/2018 Reviewed by: Diane Nielsen Ma - Fully Assessed Reason for Visit: PHMA/Care Gap Outreach [3605] Primary Visit Diagnosis:Hypercholesteremia [E78.00] Order(s):LIPID PANEL BASIC [SQLIPB] Order #: [id number] FUTURE Prescriptions as of 06/11/2018 Sig: RANITIDINE 150 MG TABLET Take 1 tablet by mouth twice * VENLAFAXINE 75 MG TABLET Take 1 tablet by mouth twice * MUPIROCIN 2 % TOPICAL OINTMENT Apply 1 application to affect* NYSTATIN 100,000 UNIT/GRAM TO* Apply 1 application to affect* FUROSEMIDE 20 MG TABLET Take 1 tablet by mouth three * LISINOPRIL 10 MG TABLET Take 1 tablet by mouth once d* METFORMIN 500 MG TABLET Take 1 tablet by mouth twice * PANTOPRAZOLE 40 MG TABLET,DEL* Take 1 tablet by mouth once d* PRAVASTATIN 20 MG TABLET Take 1 tablet by mouth daily * COMPOUNDED PRESCRIPTION Hospital bed control HYDROCODONE 5 MG-ACETAMINOPHE* Take 1 tablet by mouth every * ALBUTEROL SULFATE HFA 90 MCG/* Inhale 2 Puffs as instructed * OXYBUTYNIN CHLORIDE ER 15 MG * Take 1 tablet by mouth once d* METOPROLOL SUCCINATE ER 25 MG* Take 1 tablet by mouth once d* NITROFURANTOIN MONOHYDRATE AND * Take 1 capsule by mouth once * CIPROFLOXACIN 500 MG TABLET Take 1 tablet by mouth twice * FLUTICASONE 50 MCG/ACTUATION * Use 2 Sprays in each nostril * VITAMIN E 400 UNIT CAPSULE Take 1 capsule by mouth twice* CYANOCOBALAMIN (VIT B-12) 1,0* Take 1 tablet by mouth once d* CHOLECALCIFEROL (VITAMIN D3) * Take 1 capsule by mouth once * POTASSIUM 99 MG TABLET Take 1 tablet by mouth once d* GABAPENTIN 300 MG CAPSULE Takes 900 in the morning, 120* CATHETER 24 FR 24 FR SILVER henry catheter. * DIPHENOXYLATE-ATROPINE 2.5 MG* Take 1 tablet by mouth four t* OXYCODONE-ACETAMINOPHEN 5 MG-* GUAIFENESIN ER 600 MG TABLET,* Take 2 tablets by mouth twice* LEVETIRACETAM 500 MG TABLET Take 500 mg by mouth once cora* COMPOUNDED PRESCRIPTION Flotation pillow for the scoo* SODIUM CHLORIDE 0.9 % SOLUTION To use for catheter irrigatio* CATHETER 24 FR 24 Fr silicone henry catheter* COMPOUNDED PRESCRIPTION Drainage bags Suprapubic Ca* COMPOUNDED PRESCRIPTION Split Gauze pads 4x4 Dx: U* COMPOUNDED PRESCRIPTION Insertion kit Suprapubic Ca* MULTIVITAMIN WITH MINERALS TA* Take 1 tablet by mouth four t* OXCARBAZEPINE 300 MG TABLET Take 1 tablet by mouth four t* TRIAMCINOLONE ACETONIDE 0.1 %* 1 application by DENTAL route* COMPOUNDED PRESCRIPTION Suprapubic Irrigating kit * COMPOUNDED PRESCRIPTION Urinary night bags. 2000ml * COMPOUNDED PRESCRIPTION Catheter [address] catheter* DIPHENHYDRAMINE 25 MG CAPSULE Take 25 mg by mouth twice cora* CRANBERRY CONCENTRATE-ASCORBI* Take 140 mg by mouth twice da* BLOOD SUGAR DIAGNOSTIC STRIPS Use as instructed COMPOUNDED PRESCRIPTION Home oxygen. 2L continuous. N* COMPOUNDED PRESCRIPTION 10 cc syringe Suprapubic* SYRINGE (DISPOSABLE) 60 ML Use daily as directed. Dx: v* BACLOFEN 10 MG TABLET Take 1 tablet by mouth three * PRECISION XTRA TEST STRIPS Test blood sugars once daily * Problem List As Of Date 06/11/2018 Noted Resolved Essential hypertension [I10] More... DEPRESSIVE DISORDER NEC [F32.9] SACROILIITIS NEC [M46.1] INTERNAL DERANGEMENT KNEE-CHRONIC CHONDROMALACI*INVALID FOR* DYSMETABOLIC SYNDROME X [E88.81] INVALID FOR* Spinal stenosis, lumbar region, without neuroge*INVALID FOR*10/24/2016 MORBID OBESITY [E66.01] INVALID FOR* More... VITAMIN D DEFICIENCY NOS [E55.9] INVALID FOR* More... Knee fracture, left [[id number]] INVALID FOR* More... Septic shock [A41.9, R65.21] INVALID FOR* Suprapubic catheter [Z93.59] INVALID FOR* More... Lower urinary tract infectious disease [N39.0] INVALID FOR* Hematuria [R31.9] INVALID FOR* Urinary retention [R33.9] INVALID FOR* Polypharmacy [Z79.899] INVALID FOR* Controlled substance agreement signed [Z79.899] INVALID FOR* Chronic pain [G89.29] INVALID FOR* Kidney stone [N20.0] INVALID FOR* Degenerative arthritis of knee, bilateral [M17.*INVALID FOR* Shoulder capsulitis [M75.80] INVALID FOR* Chronic pain syndrome [G89.4] INVALID FOR* Chronic midline low back pain with bilateral sc*INVALID FOR* Spinal stenosis, lumbar region, with neurogenic*INVALID FOR* Decubitus skin ulcer [L89.90] INVALID FOR* Decubitus ulcer, stage 2 [L89.92] INVALID FOR* Controlled type 2 diabetes mellitus without com*INVALID FOR* More... Sacral decubitus ulcer [L89.159] INVALID FOR*03/28/2018 Decubitus ulcer of right perineal ischial regio*INVALID FOR*03/28/2018 Letter Text [place] [facility] Geraldine Valencia MD [address] [place], [place] [id number] Dear Isela aCmarena Your health care is very important to us. Our records indicate that you may be due for a diabetic eye exam. If you have had a diabetic eye exam within the last year, please have your records sent to us so that we may update your medical records. There is a medical records of release of information included in this letter. Please take the release to your eye doctor for future appointments to have your records forwarded to us. Important facts about diabetic eye exams Diabetic retinal exams should be done yearly for all patients with a diagnosis of diabetes. Risks such as diabetic retinopathy can be reduced with blood glucose control and early detection of potential problems. Diabetic retinopathy is damage to the small blood vessels in the retina that can lead to blindness Thank you, Geraldine Valnecia MD Letter [place] [phone] Office: [phone] Geraldine Valencia MD REQUEST FOR EYE EXAM FINDINGS December 02, 2016 Dear eye personal care worker, Thank you for coordinating eye care for our mutual patient, Isela Camarena (1945). Please fax this letter back to me with the most appropriate response selected below. Please allow the patient's signature to serve as permission to share your findings. Sincerely, Geraldine Valencia MD Patient Signature Date Date of eye exam: Findings Both Eyes Right Left No Retinopathy Detected Non Proliferative Retinopathy Mild Moderate Severe Proliferative Retinopathy Macular Edema Further testing and/or treatment indicated Comments: Patient is to return: Encounter Status:Closed by ROSI STAFFORD CMA on 06/13/18 COMPREHENSIVE METABOLIC Collected: 06/05/2018 Status: F Source: ELLIS KEITH 10:16 AM [facility] REPOSITORY Order Comment: LIVER IS IN A CMP+DBIL, RENAL IS ALSO IN A CMP TYPE CODE TESTS RESULT OUT OF RANGE REFERENCE UNITS LAB L501.0100 74-106 mg/dL High GLU 120 Result Comment: Fasting Glucose result from 100 to 125 mg/dL suggests IMPAIRED HOMEOSTASIS per A.D.A. criteria. Please note revised GLUCOSE reference range effective 2017. LAB L501.1000 7-18 mg/dL Normal BUN 12 LAB L501.1100 0.55-1.02 mg/dL Normal CREAT,SERUM 0.80 Result Comment: The validity of the calculated GFR AND GFRAA in patients over 70 years has not been determined. Clinical correlation is essential. LAB L501.1110 >60 mL/min Normal EST GFR 75 Result Comment: Non- GFR Calc LAB L501.1115 >60 mL/min Normal EST GFR - AA 91 Result Comment: GFR Calc LAB L501.1300 10-20 RATIO Normal BUN/CRE 15.1 LAB L501.1500 6.4-8.2 g/dL T Normal PROT 8.1 LAB L501.1800 3.2-5.0 g/dL Normal ALB 3.4 LAB L501.1950 2.2-4.2 g/dL High GLOB 4.7 LAB L501.2000 0.9-2.4 RATIO Low A/G 0.7 LAB L501.2200 8.5-10.1 mg/dL CA Normal 9.2 LAB L501.4100 15-37 U/L Normal AST 15 LAB L501.4305 45-117 U/L Normal ALK P 51 LAB L501.4405 13-56 U/L Normal ALT 23 LAB L501.4600 0.20-1.00 mg/dL T Normal BILI 0.30 LAB L501.5300 136-145 mmol/L Low NA 135 LAB L501.5600 3.5-5.1 mmol/L K Normal 4.1 LAB L501.5900 98-107 mmol/L Low CL 95 LAB L501.6100 21.0-32.0 mmol/L High CO2 33.0 LAB L501.6200 5-15 Normal GAP 7 Performed By: #### L500.4050, L501.2300, L501.4700, L501.5200 #### [facility] [address] [place], [address] PHOSPHORUS Collected: 06/05/2018 Status: F Source: BOIS D ARC 10:16 AM [facility] REPOSITORY Order Comment: LIVER IS IN A CMP+DBIL, RENAL IS ALSO IN A CMP TYPE CODE TESTS RESULT OUT OF RANGE REFERENCE UNITS LAB L501.2300 2.5-4.9 mg/dL Normal PHOS 3.3 Performed By: #### L500.4050, L501.2300, L501.4700, L501.5200 #### [facility] [address] [place], [address] BILIRUBIN, DIRECT Collected: 06/05/2018 Status: F Source: BOIS D ARC 10:16 [facility] REPOSITORY Order Comment: LIVER IS IN A CMP+DBIL, RENAL IS ALSO IN A CMP TYPE CODE TESTS RESULT OUT OF RANGE REFERENCE UNITS LAB L501.4700 0.00-0.30 mg/dL Normal D BILI 0.11 Performed By: #### L500.4050, L501.2300, L501.4700, L501.5200 #### [facility] [address] [place], [address] MAGNESIUM Collected: 06/05/2018 Status: F Source: BOIS D ARC 10:16 AM [facility] REPOSIT[facility] Order Comment: LIVER IS IN A CMP+DBIL, RENAL IS ALSO IN A CMP TYPE CODE TESTS RESULT OUT OF RANGE REFERENCE UNITS LAB L501.5200 1.6-2.6 mg/dL Normal MG 2.1 Performed By: #### L500.4050, L501.2300, L501.4700, L501.5200 #### [facility] [address] [place], [address] VITAMIN B12 Collected: 06/05/2018 Status: F Source: ELLIS 10:16 AM [facility] REPOSITORY Order Comment: LIVER IS IN A CMP+DBIL, RENAL IS ALSO IN A CMP TYPE CODE TESTS RESULT OUT OF REFERENCE UNITS RANGE LAB L503.0105 211-911 pg/mL High Vitamin B12 1485 Performed By: #### L503.0105 #### [facility] [address] [place], [address] Observed: 05/24/2018 Status: F Source: READER URINE CULTURE 3:36 PM [facility] REPOSITORY Sp. Request/Comment: - Specimen received in preservative Culture Result - >=100,000 CFU/ml Three or more organisms, no one type predominant, suggesting contamination during collection. Recollect if clinically indicated. Performed By: #### URCUL #### [facility] [address] [place], [place] [address] PROGRESS Observed: 05/24/2018 Status: COMPLETED Source: READER 11:40 AM [facility] REPOSITORY HNO ID: [id number] Author: Diane Nielsen Ma Service: (none) Author Type: (none) Type: Progress Notes Filed: 05/28/2018 11:30 AM Note Text: Suprapubic catheter change performed as ordered. A 24 bulgarian henry catheter was replaced using sterile technique without complications. Balloon inflated with 30cc of sterile saline. Patient tolerated procedure well. Irrigation preformed to insure proper placement as ordered without complication. Patient to follow up in 1 month. Patient to call in the interim with any problems or concerns. Urine was blue according to patient. It appears that the tubing is actually blue but not the urine. Urine dip was positive and urine culture ordered per Hector Crocker PA-C Await results. Diane Nielsen Ma CNNURSE Observed: 05/24/2018 Status: COMPLETED Source: READER 11:00 AM [facility] REPOSITORY Nurse Visit (UROLWS) ISELA CAMARENA ([id number]) 1945 F Date Time Provider Department 05/24/18 11:00 AM NURSE UROL [facility] UROLWS During your visit today, we recorded the following information about you: Diane Nielsen Ma 05/24/2018 11:41 AM Signed Suprapubic catheter change performed as ordered. A 24 bulgarian henry catheter was replaced using sterile technique without complications. Balloon inflated with 30cc of sterile saline. Patient tolerated procedure well. Irrigation preformed to insure proper placement as ordered without complication. Patient to follow up in 1 month. Patient to call in the interim with any problems or concerns. Urine was blue according to patient. It appears that the tubing is actually blue but not the urine. Urine dip was positive and urine culture ordered per Hector Crocker PA-C Await results. Diane Nielsen Ma Referring Provider: SELF [200] Allergies As of Date: 05/24/2018 Noted Allergy Reaction IRON 03/06/2013 14 - Other: See Comments Comments: From IV form; heart palpitations, chest pressure ADHESIVE TAPE (ROSINS) 10/19/2006 Comments: Blisters INFLUENZA VIRUS VACCINES 09/04/2012 12 - Shortness of Breath Comments: severe wheezing seasonal allergies [Other] 04/17/2006 SULFA (SULFONAMIDE ANTIBIOTICS) 07/11/2005 12 - Shortness of Breath Comments: Bactrim does not work for her MOBIC (MELOXICAM) 07/20/2006 8 - GI Upset Date Reviewed: 05/24/2018 Reviewed by: Diane Nielsen Ma - Fully Assessed Reason for Visit: Nurse Visit [792] Cmt: SP tube change Reason For Visit History Recorded Primary Visit Diagnosis:Lower urinary tract infectious disease [N39.0] Order(s):URINE CULTURE [SQURCUL] Order #: [id number]. #:[id number] Prescriptions as of 05/24/2018 Sig: VENLAFAXINE 75 MG TABLET Take 1 tablet by mouth twice * MUPIROCIN 2 % TOPICAL OINTMENT Apply 1 application to affect* NYSTATIN 100,000 UNIT/GRAM TO* Apply 1 application to affect* FUROSEMIDE 20 MG TABLET Take 1 tablet by mouth three * LISINOPRIL 10 MG TABLET Take 1 tablet by mouth once d* METFORMIN 500 MG TABLET Take 1 tablet by mouth twice * PANTOPRAZOLE 40 MG TABLET,DEL* Take 1 tablet by mouth once d* PRAVASTATIN 20 MG TABLET Take 1 tablet by mouth daily * COMPOUNDED PRESCRIPTION Hospital bed control HYDROCODONE 5 MG-ACETAMINOPHE* Take 1 tablet by mouth every * ALBUTEROL SULFATE HFA 90 MCG/* Inhale 2 Puffs as instructed * OXYBUTYNIN CHLORIDE ER 15 MG * Take 1 tablet by mouth once d* METOPROLOL SUCCINATE ER 25 MG* Take 1 tablet by mouth once d* NITROFURANTOIN MONOHYDRATE AND * Take 1 capsule by mouth once * CIPROFLOXACIN 500 MG TABLET Take 1 tablet by mouth twice * RANITIDINE 150 MG TABLET Take 1 tablet by mouth twice * PANTOPRAZOLE 40 MG TABLET,DEL* Take 1 tablet by mouth daily * FLUTICASONE 50 MCG/ACTUATION * Use 2 Sprays in each nostril * VITAMIN E 400 UNIT CAPSULE Take 1 capsule by mouth twice* CYANOCOBALAMIN (VIT B-12) 1,0* Take 1 tablet by mouth once d* CHOLECALCIFEROL (VITAMIN D3) * Take 1 capsule by mouth once * POTASSIUM 99 MG TABLET Take 1 tablet by mouth once d* GABAPENTIN 300 MG CAPSULE Takes 900 in the morning, 120* CATHETER 24 FR 24 FR SILVER henry catheter. * DIPHENOXYLATE-ATROPINE 2.5 MG* Take 1 tablet by mouth four t* OXYCODONE-ACETAMINOPHEN 5 MG-* GUAIFENESIN ER 600 MG TABLET,* Take 2 tablets by mouth twice* LEVETIRACETAM 500 MG TABLET Take 500 mg by mouth once cora* COMPOUNDED PRESCRIPTION Flotation pillow for the scoo* SODIUM CHLORIDE 0.9 % SOLUTION To use for catheter irrigatio* CATHETER 24 FR 24 Fr silicone henry catheter* COMPOUNDED PRESCRIPTION Drainage bags Suprapubic Ca* COMPOUNDED PRESCRIPTION Split Gauze pads 4x4 Dx: U* COMPOUNDED PRESCRIPTION Insertion kit Suprapubic Ca* MULTIVITAMIN WITH MINERALS TA* Take 1 tablet by mouth four t* OXCARBAZEPINE 300 MG TABLET Take 1 tablet by mouth four t* TRIAMCINOLONE ACETONIDE 0.1 %* 1 application by DENTAL route* COMPOUNDED PRESCRIPTION Suprapubic Irrigating kit * COMPOUNDED PRESCRIPTION Urinary night bags. 2000ml * COMPOUNDED PRESCRIPTION Catheter [address] catheter* DIPHENHYDRAMINE 25 MG CAPSULE Take 25 mg by mouth twice cora* CRANBERRY CONCENTRATE-ASCORBI* Take 140 mg by mouth twice da* BLOOD SUGAR DIAGNOSTIC STRIPS Use as instructed COMPOUNDED PRESCRIPTION Home oxygen. 2L continuous. N* COMPOUNDED PRESCRIPTION 10 cc syringe Suprapubic* SYRINGE (DISPOSABLE) 60 ML Use daily as directed. Dx: v* BACLOFEN 10 MG TABLET Take 1 tablet by mouth three * PRECISION XTRA TEST STRIPS Test blood sugars once daily * Problem List As Of Date 05/24/2018 Noted Resolved Essential hypertension [I10] More... DEPRESSIVE DISORDER NEC [F32.9] SACROILIITIS NEC [M46.1] INTERNAL DERANGEMENT KNEE-CHRONIC CHONDROMALACI*INVALID FOR* DYSMETABOLIC SYNDROME X [E88.81] INVALID FOR* Spinal stenosis, lumbar region, without neuroge*INVALID FOR*10/24/2016 MORBID OBESITY [E66.01] INVALID FOR* More... VITAMIN D DEFICIENCY NOS [E55.9] INVALID FOR* More... Knee fracture, left [[id number]] INVALID FOR* More... Septic shock [A41.9, R65.21] INVALID FOR* Suprapubic catheter [Z93.59] INVALID FOR* More... Lower urinary tract infectious disease [N39.0] INVALID FOR* Hematuria [R31.9] INVALID FOR* Urinary retention [R33.9] INVALID FOR* Polypharmacy [Z79.899] INVALID FOR* Controlled substance agreement signed [Z79.899] INVALID FOR* Chronic pain [G89.29] INVALID FOR* Kidney stone [N20.0] INVALID FOR* Degenerative arthritis of knee, bilateral [M17.*INVALID FOR* Shoulder capsulitis [M75.80] INVALID FOR* Chronic pain syndrome [G89.4] INVALID FOR* Chronic midline low back pain with bilateral sc*INVALID FOR* Spinal stenosis, lumbar region, with neurogenic*INVALID FOR* Decubitus skin ulcer [L89.90] INVALID FOR* Decubitus ulcer, stage 2 [L89.92] INVALID FOR* Controlled type 2 diabetes mellitus without com*INVALID FOR* More... Sacral decubitus ulcer [L89.159] INVALID FOR*03/28/2018 Decubitus ulcer of right perineal ischial regio*INVALID FOR*03/28/2018 Follow-up and Disposition History Recorded Encounter Status:Closed by HECTOR CROCKER PA-C on 05/28/18 HISTORY PHYSICAL Observed: 04/19/2018 Status: COMPLETED Source: READER 11:10 AM [facility] REPOSITORY HNO ID: [id number] Author: Diane Nielsen Ma Service: (none) Author Type: (none) Type: HANDP Filed: 04/19/2018 11:13 AM Note Text: In the supine position, the old suprapubic tube was removed with no difficulty. The area was prepped with betadine, and a new 24 Fr Henry was inserted through the stoma site into the bladder. The balloon was inflated with 30 cc's of sterile saline. The catheter irrigated well. The pt tolerated the procedure well without complications. Pt c/o sore spot in peritoneal area. Not visible due to body habitus. Pt is using bactroban and will continue if helping. Advised to call PCP for instructions if not improving. Follow up as discussed with Hector Gore. JENNIFER Crocker ? Diane Nielsen MA ? CNNURSE Observed: 04/19/2018 Status: COMPLETED Source: READER 10:30 AM [facility] Nurse Visit (UROLWS) ISELA CAMARENA ([id number]) 1945 F Date Time Provider Department 04/19/18 10:30 AM [facility]SE [facility]OL [facility] During your visit today, we recorded the following information about you: Diane Nielsen Ma 04/19/2018 11:13 AM Signed In the supine position, the old suprapubic tube was removed with no difficulty. The area was prepped with betadine, and a new 24 Fr Henry was inserted through the stoma site into the bladder. The balloon was inflated with 30 cc's of sterile saline. The catheter irrigated well. The pt tolerated the procedure well without complications. Pt c/o sore spot in peritoneal area. Not visible due to body habitus. Pt is using bactroban and will continue if helping. Advised to call PCP for instructions if not improving. Follow up as discussed with Hector Crocker PA-C ? Diane Nielsen MA ? Referring Provider: SELF [200] Allergies As of Date: 04/19/2018 Noted Allergy Reaction IRON 03/06/2013 14 - Other: See Comments Comments: From IV form; heart palpitations, chest pressure ADHESIVE TAPE (ROSINS) 10/19/2006 Comments: Blisters INFLUENZA VIRUS VACCINES 09/04/2012 12 - Shortness of Breath Comments: severe wheezing seasonal allergies [Other] 04/17/2006 SULFA (SULFONAMIDE ANTIBIOTICS) 07/11/2005 12 - Shortness of Breath Comments: Bactrim does not work for her MOBIC (MELOXICAM) 07/20/2006 8 - GI Upset Date Reviewed: 04/19/2018 Reviewed by: Diane Nielsen Ma - Fully Assessed Reason for Visit: Nurse Visit [792] Primary Visit Diagnosis:Urinary retention [R33.9] Prescriptions as of 04/19/2018 Sig: MUPIROCIN 2 % TOPICAL OINTMENT Apply 1 application to affect* NYSTATIN 100,000 UNIT/GRAM TO* Apply 1 application to affect* VENLAFAXINE ER 150 MG CAPSULE* Take 1 capsule by mouth once * FUROSEMIDE 20 MG TABLET Take 1 tablet by mouth three * LISINOPRIL 10 MG TABLET Take 1 tablet by mouth once d* METFORMIN 500 MG TABLET Take 1 tablet by mouth twice * PANTOPRAZOLE 40 MG TABLET,DEL* Take 1 tablet by mouth once d* PRAVASTATIN 20 MG TABLET Take 1 tablet by mouth daily * COMPOUNDED PRESCRIPTION Hospital bed control HYDROCODONE 5 MG-ACETAMINOPHE* Take 1 tablet by mouth every * ALBUTEROL SULFATE HFA 90 MCG/* Inhale 2 Puffs as instructed * OXYBUTYNIN CHLORIDE ER 15 MG * Take 1 tablet by mouth once d* METOPROLOL SUCCINATE ER 25 MG* Take 1 tablet by mouth once d* NITROFURANTOIN MONOHYDRATE AND * Take 1 capsule by mouth once * CIPROFLOXACIN 500 MG TABLET Take 1 tablet by mouth twice * RANITIDINE 150 MG TABLET Take 1 tablet by mouth twice * PANTOPRAZOLE 40 MG TABLET,DEL* Take 1 tablet by mouth daily * FLUTICASONE 50 MCG/ACTUATION * Use 2 Sprays in each nostril * VITAMIN E 400 UNIT CAPSULE Take 1 capsule by mouth twice* CYANOCOBALAMIN (VIT B-12) 1,0* Take 1 tablet by mouth once d* CHOLECALCIFEROL (VITAMIN D3) * Take 1 capsule by mouth once * POTASSIUM 99 MG TABLET Take 1 tablet by mouth once d* GABAPENTIN 300 MG CAPSULE Takes 900 in the morning, 120* CATHETER 24 FR 24 FR SILVER henry catheter. * DIPHENOXYLATE-ATROPINE 2.5 MG* Take 1 tablet by mouth four t* OXYCODONE-ACETAMINOPHEN 5 MG-* GUAIFENESIN ER 600 MG TABLET,* Take 2 tablets by mouth twice* LEVETIRACETAM 500 MG TABLET Take 500 mg by mouth once cora* COMPOUNDED PRESCRIPTION Flotation pillow for the scoo* SODIUM CHLORIDE 0.9 % SOLUTION To use for catheter irrigatio* CATHETER 24 FR 24 Fr silicone henry catheter* COMPOUNDED PRESCRIPTION Drainage bags Suprapubic Ca* COMPOUNDED PRESCRIPTION Split Gauze pads 4x4 Dx: U* COMPOUNDED PRESCRIPTION Insertion kit Suprapubic Ca* MULTIVITAMIN WITH MINERALS TA* Take 1 tablet by mouth four t* OXCARBAZEPINE 300 MG TABLET Take 1 tablet by mouth four t* TRIAMCINOLONE ACETONIDE 0.1 %* 1 application by DENTAL route* COMPOUNDED PRESCRIPTION Suprapubic Irrigating kit * COMPOUNDED PRESCRIPTION Urinary night bags. 2000ml * COMPOUNDED PRESCRIPTION Catheter [address] catheter* DIPHENHYDRAMINE 25 MG CAPSULE Take 25 mg by mouth twice cora* CRANBERRY CONCENTRATE-ASCORBI* Take 140 mg by mouth twice da* BLOOD SUGAR DIAGNOSTIC STRIPS Use as instructed COMPOUNDED PRESCRIPTION Home oxygen. 2L continuous. N* COMPOUNDED PRESCRIPTION 10 cc syringe Suprapubic* SYRINGE (DISPOSABLE) 60 ML Use daily as directed. Dx: v* BACLOFEN 10 MG TABLET Take 1 tablet by mouth three * PRECISION XTRA TEST STRIPS Test blood sugars once daily * Problem List As Of Date 04/19/2018 Noted Resolved Essential hypertension [I10] More... DEPRESSIVE DISORDER NEC [F32.9] SACROILIITIS NEC [M46.1] INTERNAL DERANGEMENT KNEE-CHRONIC CHONDROMALACI*INVALID FOR* DYSMETABOLIC SYNDROME X [E88.81] INVALID FOR* Spinal stenosis, lumbar region, without neuroge*INVALID FOR*10/24/2016 MORBID OBESITY [E66.01] INVALID FOR* More... VITAMIN D DEFICIENCY NOS [E55.9] INVALID FOR* More... Knee fracture, left [[id number]] INVALID FOR* More... Septic shock [A41.9, R65.21] INVALID FOR* Suprapubic catheter [Z93.59] INVALID FOR* More... Lower urinary tract infectious disease [N39.0] INVALID FOR* Hematuria [R31.9] INVALID FOR* Urinary retention [R33.9] INVALID FOR* Polypharmacy [Z79.899] INVALID FOR* Controlled substance agreement signed [Z79.899] INVALID FOR* Chronic pain [G89.29] INVALID FOR* Kidney stone [N20.0] INVALID FOR* Degenerative arthritis of knee, bilateral [M17.*INVALID FOR* Shoulder capsulitis [M75.80] INVALID FOR* Chronic pain syndrome [G89.4] INVALID FOR* Chronic midline low back pain with bilateral sc*INVALID FOR* Spinal stenosis, lumbar region, with neurogenic*INVALID FOR* Decubitus skin ulcer [L89.90] INVALID FOR* Decubitus ulcer, stage 2 [L89.92] INVALID FOR* Controlled type 2 diabetes mellitus without com*INVALID FOR* More... Sacral decubitus ulcer [L89.159] INVALID FOR*03/28/2018 Decubitus ulcer of right perineal ischial regio*INVALID FOR*03/28/2018 Encounter Status:Closed by DIANE NIELSEN MA on 04/19/18 OT D/C SUMMARY Observed: 04/13/2018 Status: F Source: BOIS D ARC 2:29 PM [facility] REPOSITORY [facility] [place] [address] Fax REHABILITATION SERVICES DISCHARGE SUMMARY MR#: [id number] Acct: [id number] Name: ISELA CAMARENA Rep #: [id number] : 1945 72 From: Amarilys Costello Referring DrEvelia: HANANE Torres Status: REG RCR Eval Date: Discharge Date: - OT D/C Summary It has been my pleasure to treat ISELA Pittman BETOMARTHA under orders from DEDRICK Connelly, for the diagnosis of Hand weakness, pain, and stiffness for a total of 7 visit(s). Please see the following information for a summary of their discharge status. - Overall Improvement % Improvement: 20 - Objective Objective/Function: Completed reassessment on this date. Measurements are as follows: ROM wrist flexion R 0-31, L 0-90; ext. R 0-46, L 0-40, supination R 0-55, L 0-60 degrees. Increased stiffness and appears to be weather related. Completed strength assessment: medical specialist R 32, L 40 lbs, lateral pinch R 10, L 11; tripod R 10, L 8 lbs, tip pinch R 7, L 8 lbs. Completed sensation reassessment with monofilament test: R hand 2nd 3.84, 3rd 3.22, 4th 3.61, 5th 4.08, thumb 3.84; L hand 2nd 3.22, 3rd 3.22, 4th 3.84, 5th 4.08, thumb 3.84. R hand has progressed but sensory deficits remain and L hand exhibited some decreased sensation in pinky finger. - Goals Patient Goals: Regain Mobility, Regain Strength, Decrease Pain, Decrease Swelling/Stiffness, Use Hand/Wrist/Arm Normally Again, Decrease Tingling/Numbness, Increase ROM, Be More Independent in ADLS, Resume Former Household Responsibilities (Cooking,Cleaning,Yard, etc.), Resume Hobbies Other: Zoey to be consulted if lyphadema becomes more prevalent but as of now she notes no issue of changes with B arms. Goal:: Pt. to increased B medical specialist by 10 lbs to promote increased stability of wrist and hand to promote manipulation of self-care items by d/c. Goal:: Pat to increased supination of B wrists to promote ability to complete self-care tasks 4/5 trials 80% of the itme by d/c. Goal:: Pt. to be mod I to complete pain management techniques safely 4/5 trials 80% of the time to decreased pain and promote particpation of ADl/IADls by d/c. Goal:: Pat to be mod I to complete decreased sensory stratgeies at home to promote participation and safety while completing ADL/IADLs by d/c. Goal:: Pat to be mod I to complete proper body mechanics of hand and wrist to decreased painand promote jt integrity while complete selfcare 4/5 trials 80% of the time by d/c. - Plan Plan: Diamond completed last scheduled appointment today. She will be d/c'd today. She is to follow up and PA-C to determine POC if numbness and tingling continues. She has progressed with R hand for touch sensation but strength and ROM measurements remain similar to evaluation. She is to get yellow putty today. Call with questions/concerns. - D/C Information If there are questions or concerns regarding this patient's occupational therapy, please fell free to call me at [phone]. Thank you for the referral of this patient. Sincerely, Amarilys Costello <Electronically signed by Amarilys Costello > 04/13/18 1429 CC: HANANE Torres; Geraldine Valencia MD [facility] Signed PT D/C SUMMARY (1) Observed: 04/11/2018 Status: F Source: BOIS D ARC 1:58 PM [facility] RE[facility] [address] [place] [address] Rd. [address] [place] [address] Fax REHABILITATION SERVICES DISCHARGE SUMMARY MR#: [id number] Acct: [id number] Name: ISELA CAMARENA Rep #: [id number] : 1945 72 From: Esau Reed PT, ATC Referring Dr.: HANANE Torres Status: REG RCR Insurance: MEDICARE PART A B [employer] - PT D/C Summary It has been my pleasure to treat ISELA CAMARENA under orders from SHAWNA ConnellyC, for the diagnosis of B shoulder pain for a total of 12 visit(s). Discharge Date: Please see the following information for a summary of their discharge status. - Subjective Subjective: Pt does not have pain in B shoulders this date. B shoulder pain has been 0-7/10 in the last week. - Pain B shoulder pain Pain Intensity (Out of 10): 0 - Overall Improvement % Improvement: 35 - Objective Objective/Function: AROM: L shoulder flex 72, abd 70, ER 45. R shoulder flex 64, abd 70, ER 15. (compensations with all movements and movements are painful). MMT: B shoulder strength is 3-/5 throughout. - Goals Goal 1:: Decrease B shoulder pain x 50% to aid with with sleep Goal Progress: Goal Met Goal 2:: Increase B shoulder strength x 1 grade to aid with IADL's Goal Progress: Progressing Goal 3:: Increase B shoulder abd and flex ROM x 30 degrees to aid with overhead activity Goal Progress: Progressing Goal 4:: I with HEP Goal Progress: Goal Met - Plan Plan: D/C to HEP. - D/C Information If there are questions or concerns regarding this patient's physical therapy, please feel free to call me at [phone]. Thank you for the referral of this patient. Sincerely, Esau Reed, PT, <Electronically signed by Esau Reed PT, ATC> 04/11/18 1358 CC: HANANE Torres; Geraldine Valencia MD [facility] Signed PROGRESS Observed: 03/28/2018 Status: COMPLETED Source: READER 1:15 PM [facility] REPOSITORY HNO ID: [id number] Author: Geraldine Valencia Service: (none) Author Type: Physician Type: Progress Notes Filed: 04/03/2018 1:27 PM Note Text: Welcome To Medicare Visit Medical B eligibility date age 67 Date of last exam none in the past year. PAST MEDICAL HISTORY Diagnosis Date - Diabetes 1.5, managed as type 1 (HCC) - Fracture 03/2012 left femur break - Hypertension - Morbid obesity (HCC) - Obesity, unspecified - Obstructive sleep apnea - Osteoarthrosis, unspecified whether generalized or localized, other specified sites - PMH - PAST MEDICAL HISTORY OF desmorphic metabolic syndrome - Sacroiliitis, not elsewhere classified (HCC) - Septicemia (HCC) 10/2010 with resp and renal failure requiring METAL TEMPERER. - Spinal stenosis, other than cervical - Suprapubic catheter (FORM[facility]LY [facility]) - Unspecified essential hypertension - Unspecified urinary incontinence - Unspecified vitamin D deficiency 01/22/2009 PAST SURGICAL HISTORY Procedure Laterality Date - APPENDECTOMY 1957 - PAST SURGICAL HISTORY OF lt knee cartilage repair surgery - PAST SURGICAL HISTORY OF 2010 suprapubic catheter insertion - REMOVAL GALLBLADDER 1993 - TOTAL ABDOM HYSTERECTOMY 1993 Iron; Adhesive Tape (Rosins); Influenza Virus Vaccines; Seasonal Allergies [Other]; Sulfa (Sulfonamide Antibiotics); Mobic [Meloxicam] Medications reviewed: Yes FAMILY HISTORY Problem Relation Age of Onset - Coronary Artery Disease Father - Hypertension Father - Hypertension Mother - Hypertension Sister - Lipids Father - Diabetes Father - Diabetes Paternal Grandmother SOCIAL HISTORY: Social History Marital status: Single Spouse name: Years of education: Number of children: Occupational History 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 Social History Main Topics Smoking status: Never Smoker Smokeless tobacco: Never Used Alcohol use: No Drug use: No Isela denies regular aerobic exercise. She watches her diet for sodium, low fat and low cholesterol most of the time. List of current specialists seen: Urology- [facility]- Caio Nichole. Dr Berna Robertson End of Live Planning discussed including patients advanced directive wishes: Yes I am willing to follow Isela's advanced directives. Depression screen She in the past two weeks denies having felt down, depressed, hopeless or with little interest or pleasure in doing things. Functional Ability/Safety Screen 1. Was the patient's timed Up and Go test unsteady or longer than 30 seconds? Yes she cannot walk 2. Does the patient need help with the phone, transportation, shopping,preparing meals, housework, laundry, medications or managing money? Yes she is not able to do any INSTRUMENTAL ACTIVITIES OF DAILY LIVING except cooking 3. Does your home have rugs in the hallway, lack of grab bars in the bathroom, lack of handrails on the stairs or have poor lighting? No Hearing Evaluation: normal PHYSICAL EXAM BP 132/56 (BP Site: Left Arm, BP Position: Sitting, BP Cuff Size: Regular Adult) Pulse 82 Resp 18 Ht 167.6 cm (5' 6) SpO2 94% Alert and oriented X 3: YES There is no height or weight on file to calculate BMI. ASSESSMENT/PLAN: 72 year old female The following prevention plan was discussed during the office visit and provided to the patient: - Lipid panel GERALDINE VALENCIA MD. Reason for Visit Patient presents with: Established Patient: 4 month follow up Isela Camarena is a 72 year old female who presents here today for Above Complaints.. Health Maintenance DILATED RETINAL EXAM DIABETIC FOOT EXAM FECAL OCCULT BLOOD MAMMOGRAM HPI Dr. Robertson- neurology- wants her on effexor for nerve related pain, gabapentin, trileptal are all being used for the same reason but now we are trying to wean her off the polypharmacy. Hba1c is 6.2, she is well controlled Diabetic. BP is well controlled on current regimen(lisinopril 10 and metoprolol 25 ) of medicines which is tolerated well. No significant side effects Lipids are normal, reviewed test results with patient Who takes medications regularly and has no side effects. She needs her hospital bed to help her sleep, she uses it daily and has been having difficulty of late with resting because a part of the bed broke, she needs an order from me to get that fixed, No problem-specific Assessment AND Plan notes found for this encounter. PAST MEDICAL HISTORY Diagnosis Date - Diabetes 1.5, managed as type 1 (HCC) - Fracture 03/2012 left femur break - Hypertension - Morbid obesity (HCC) - Obesity, unspecified - Obstructive sleep apnea - Osteoarthrosis, unspecified whether generalized or localized, other specified sites - PMH - PAST MEDICAL HISTORY OF desmorphic metabolic syndrome - Sacroiliitis, not elsewhere classified (HCC) - Septicemia (FORM[facility]LY [facility]) 10/2010 with resp and renal failure requiring METAL TEMPERER. - Spinal stenosis, other than cervical - Suprapubic catheter (FORMERLY [facility]) - Unspecified essential hypertension - Unspecified urinary incontinence - Unspecified vitamin D deficiency 01/22/2009 PAST SURGICAL HISTORY Procedure Laterality Date - APPENDECTOMY 1957 - PAST SURGICAL HISTORY OF lt knee cartilage repair surgery - PAST SURGICAL HISTORY OF 2010 suprapubic catheter insertion - REMOVAL GALLBLADDER 1993 - TOTAL ABDOM HYSTERECTOMY 1993 FAMILY HISTORY Problem Relation Age of Onset - Coronary Artery Disease Father - Hypertension Father - Hypertension Mother - Hypertension Sister - Lipids Father - Diabetes Father - Diabetes Paternal Grandmother Social History Substance Use Topics - Smoking status: Never Smoker - Smokeless tobacco: Never Used - Alcohol use No Past medical history, appointments, medications, allergies reviewed. Pertinent Lab/Diagnostic Studies are reviewed and discussed today Current Outpatient Prescriptions: - nystatin (MYCOSTATIN) powder - albuterol HFA (VENTOLIN HFA) 90 mcg/actuation inhaler - oxybutynin ER (DITROPAN XL) 15 mg 24 hr Extended Rel Tab - metoprolol succinate ER (TOPROL XL) 25 mg 24 hr tablet - nitrofurantoin monohydrate and macrocrystal (MACROBID) 100 mg capsule - ciprofloxacin HCl (CIPRO) 500 mg tablet - HYDROcodone-acetaminophen (NORCO) 5-325 mg per tablet - mupirocin (BACTROBAN) 2 % ointment - ranitidine (ZANTAC) 150 mg tablet - pantoprazole DR (PROTONIX) 40 mg tablet - fluticasone (FLONASE) 50 mcg/actuation nasal spray - alpha tocopheryl acetate (VITAMIN E) 400 unit capsule - cyanocobalamin (VITAMIN B-12) 1,000 mcg tab - Cholecalciferol, Vitamin D3, (VITAMIN D) 1,000 unit cap - Potassium 99 mg tab - gabapentin (NEURONTIN) 300 mg capsule - venlafaxine XR (EFFEXOR XR) 150 mg 24 hr capsule - furosemide (LASIX) 20 mg tablet - lisinopril (PRINIVIL) 10 mg tablet - Catheter 24 Fr misc - metFORMIN (GLUCOPHAGE) 500 mg tablet - pantoprazole DR (PROTONIX) 40 mg tablet - diphenoxylate-atropine (LOMOTIL) 2.5-0.025 mg per tablet - pravastatin (PRAVACHOL) 20 mg tablet - oxyCODONE-acetaminophen (PERCOCET) 5-325 mg tablet - guaiFENesin (MUCINEX) 600 mg 12 hr tablet - levETIRAcetam (KEPPRA) 500 mg tablet - COMPOUNDED PRESCRIPTION - Sodium Chloride 0.9 % soln - Catheter 24 Fr misc - COMPOUNDED PRESCRIPTION - COMPOUNDED PRESCRIPTION - COMPOUNDED PRESCRIPTION - multivitamin with minerals (VISION/OPTIGEN) tablet - OXcarbazepine (TRILEPTAL) 300 mg tablet - triamcinolone (KENALOG IN ORABASE) 0.1 % paste - COMPOUNDED PRESCRIPTION - COMPOUNDED PRESCRIPTION - COMPOUNDED PRESCRIPTION - diphenhydrAMINE (BENADRYL) 25 mg capsule - Cranberry-Vitamin C-Vitamin E (CRANBERRY CONCENTRATE) 140- 100 mg cap - blood sugar diagnostic (GLUCOCARD VITAL SENSOR) test strip - COMPOUNDED PRESCRIPTION - COMPOUNDED PRESCRIPTION - syringe (BD SYRINGE) 60 mL Syrg - baclofen 10 mg tablet - blood sugar diagnostic(PRECISION XTRA TEST STRIPS) Review of Systems CONSTITUTIONAL: No fevers, chills night sweats, unintended weight loss CARDIOVASCULAR: No chest pain, dyspnea, palpitations, orthopnea, PND, ankle edema. PULM: No dyspnea, unexplained cough. GI: No dysphagia/odynophagia, problematic reflux, constipation, diarrhea, changes in stool habits, hematochezia, melena. : No new urinary complaints, including dysuria, gross hematuria or pyuria. NEURO: No new balance problems, peripheral weakness/paresthesias or numbness of concern. Physical Exam BP 132/56 (BP Site: Left Arm, BP Position: Sitting, BP Cuff Size: Regular Adult) Pulse 82 Resp 18 Ht 167.6 cm (5' 6) SpO2 94% General appearance: Well appearing, alert, in no acute distress, well nourished. Skin: Skin color, texture, turgor normal, no suspicious rashes or lesions Head: Normocephalic, no masses, lesions, tenderness or abnormalities Eyes: Anicteric sclera. Pupils are equally round and reactive to light. Extraocular movements are intact. Lungs: Lungs clear to auscultation. No wheezing, rhonchi, rales Heart: RRR without murmur, gallop, or rubs. Extremities: No deformities, edema, skin discoloration, clubbing or cyanosis. Good capillary refill. ASSESSMENT/PLAN: 1. Essential hypertension - ICD9: 401.9, ICD10: I10 (primary diagnosis) - good control - Recommended regular aerobic exercise. - Recommend home blood pressure monitoring, to bring results in on next visit - Goal of BP <130/80 - VENLAFAXINE ER 150 MG CAPSULE,EXTENDED RELEASE 24 HR - FUROSEMIDE 20 MG TABLET - LISINOPRIL 10 MG TABLET 2. Sacroiliitis, not elsewhere classified (HCC) - ICD9: 720.2, ICD10: M46.1 3. Medicare annual wellness visit, subsequent - ICD9: V70.0, ICD10: Z00.00 - Encouraged monthly Breast Self Exam - Follow up for annual exam in one year. 4. Breast cancer screening by mammogram - ICD9: V76.12, ICD10: Z12.31 - Encouraged monthly BSE - Follow up for annual exam in one year. - JANA SCREENING 5. Controlled type 2 diabetes mellitus without complication, without long-term current use of insulin (HCC) - ICD9: 250.00, ICD10: E11.9 Controlled. - Continue current medications - METFORMIN 500 MG TABLET 6. Mixed hyperlipidemia - ICD9: 272.2, ICD10: E78.2 - good control - Continue current medication. - PRAVASTATIN 20 MG TABLET 7. Gastroesophageal reflux disease without esophagitis - ICD9: 530.81, ICD10: K21.9 - Discussed lifestyle modifications including losing weight, limiting caffeine, no meals three hours before sleep and head of bed elevation - PANTOPRAZOLE 40 MG TABLET,DELAYED RELEASE GERALDINE VALENCIA MD CNOV Observed: 03/28/2018 Status: COMPLETED Source: READER 1:00 PM [facility] REPOSITORY Office Visit (INTMWS) ISELA CAMARENA ([id number]) 1945 F Date Time Provider Department 03/28/18 1:00 PM GERALDINE VALENCIA INTMWS During your visit today, we recorded the following information about you: Pulse Respiration Blood pressure Height 82/minute 18/minute 132/56 1.676 m GERALDINE VALENCIA MD 04/03/2018 1:27 PM Addendum Welcome To Medicare Visit Medical B eligibility date age 67 Date of last exam none in the past year. PAST MEDICAL HISTORY Diagnosis Date - Diabetes 1.5, managed as type 1 (HCC) - Fracture 03/2012 left femur break - Hypertension - Morbid obesity (HCC) - Obesity, unspecified - Obstructive sleep apnea - Osteoarthrosis, unspecified whether generalized or localized, other specified sites - PMH - PAST MEDICAL HISTORY OF desmorphic metabolic syndrome - Sacroiliitis, not elsewhere classified (HCC) - Septicemia (HCC) 10/2010 with resp and renal failure requiring METAL TEMPERER. - Spinal stenosis, other than cervical - Suprapubic catheter (FORM[facility]LY [facility]) - Unspecified essential hypertension - Unspecified urinary incontinence - Unspecified vitamin D deficiency 01/22/2009 PAST SURGICAL HISTORY Procedure Laterality Date - APPENDECTOMY 1957 - PAST SURGICAL HISTORY OF lt knee cartilage repair surgery - PAST SURGICAL HISTORY OF 2010 suprapubic catheter insertion - REMOVAL GALLBLADDER 1993 - TOTAL ABDOM HYSTERECTOMY 1993 Iron; Adhesive Tape (Rosins); Influenza Virus Vaccines; Seasonal Allergies [Other]; Sulfa (Sulfonamide Antibiotics); Mobic [Meloxicam] Medications reviewed: Yes FAMILY HISTORY Problem Relation Age of Onset - Coronary Artery Disease Father - Hypertension Father - Hypertension Mother - Hypertension Sister - Lipids Father - Diabetes Father - Diabetes Paternal Grandmother SOCIAL HISTORY: Social History Marital status: Single Spouse name: Years of education: Number of children: Occupational History 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 Social History Main Topics Smoking status: Never Smoker Smokeless tobacco: Never Used Alcohol use: No Drug use: No Isela denies regular aerobic exercise. She watches her diet for sodium, low fat and low cholesterol most of the time. List of current specialists seen: Urology- [facility]- [facility] Nich[facility]. Dr Berna Robertson End of Live Planning discussed including patients advanced directive wishes: Yes I am willing to follow Isela's advanced directives. Depression screen She in the past two weeks denies having felt down, depressed, hopeless or with little interest or pleasure in doing things. Functional Ability/Safety Screen 1. Was the patient's timed Up and Go test unsteady or longer than 30 seconds? Yes she cannot walk 2. Does the patient need help with the phone, transportation, shopping,preparing meals, housework, laundry, medications or managing money? Yes she is not able to do any INSTRUMENTAL ACTIVITIES OF DAILY LIVING except cooking 3. Does your home have rugs in the hallway, lack of grab bars in the bathroom, lack of handrails on the stairs or have poor lighting? No Hearing Evaluation: normal PHYSICAL EXAM BP 132/56 (BP Site: Left Arm, BP Position: Sitting, BP Cuff Size: Regular Adult) Pulse 82 Resp 18 Ht 167.6 cm (5' 6) SpO2 94% Alert and oriented X 3: YES There is no height or weight on file to calculate BMI. ASSESSMENT/PLAN: 72 year old female The following prevention plan was discussed during the office visit and provided to the patient: - Lipid panel GERALDINE VALENCIA MD. Reason for Visit Patient presents with: Established Patient: 4 month follow up Isela Camarena is a 72 year old female who presents here today for Above Complaints.. Health Maintenance DILATED RETINAL EXAM DIABETIC FOOT EXAM FECAL OCCULT BLOOD MAMMOGRAM HPI Dr. Robertson- neurology- wants her on effexor for nerve related pain, gabapentin, trileptal are all being used for the same reason but now we are trying to wean her off the polypharmacy. Hba1c is 6.2, she is well controlled Diabetic. BP is well controlled on current regimen(lisinopril 10 and metoprolol 25 ) of medicines which is tolerated well. No significant side effects Lipids are normal, reviewed test results with patient Who takes medications regularly and has no side effects. She needs her hospital bed to help her sleep, she uses it daily and has been having difficulty of late with resting because a part of the bed broke, she needs an order from me to get that fixed, No problem-specific Assessment AND Plan notes found for this encounter. PAST MEDICAL HISTORY Diagnosis Date - Diabetes 1.5, managed as type 1 (HCC) - Fracture 03/2012 left femur break - Hypertension - Morbid obesity (HCC) - Obesity, unspecified - Obstructive sleep apnea - Osteoarthrosis, unspecified whether generalized or localized, other specified sites - PMH - PAST MEDICAL HISTORY OF desmorphic metabolic syndrome - Sacroiliitis, not elsewhere classified (HCC) - Septicemia ([facility]) 10/2010 with resp and renal failure requiring METAL TEMPERER. - Spinal stenosis, other than cervical - Suprapubic catheter ([facility]) - Unspecified essential hypertension - Unspecified urinary incontinence - Unspecified vitamin D deficiency 01/22/2009 PAST SURGICAL HISTORY Procedure Laterality Date - APPENDECTOMY 1957 - PAST SURGICAL HISTORY OF lt knee cartilage repair surgery - PAST SURGICAL HISTORY OF 2010 suprapubic catheter insertion - REMOVAL GALLBLADDER 1993 - TOTAL ABDOM HYSTERECTOMY 1993 FAMILY HISTORY Problem Relation Age of Onset - Coronary Artery Disease Father - Hypertension Father - Hypertension Mother - Hypertension Sister - Lipids Father - Diabetes Father - Diabetes Paternal Grandmother Social History Substance Use Topics - Smoking status: Never Smoker - Smokeless tobacco: Never Used - Alcohol use No Past medical history, appointments, medications, allergies reviewed. Pertinent Lab/Diagnostic Studies are reviewed and discussed today Current Outpatient Prescriptions: - nystatin (MYCOSTATIN) powder - albuterol HFA (VENTOLIN HFA) 90 mcg/actuation inhaler - oxybutynin ER (DITROPAN XL) 15 mg 24 hr Extended Rel Tab - metoprolol succinate ER (TOPROL XL) 25 mg 24 hr tablet - nitrofurantoin monohydrate and macrocrystal (MACROBID) 100 mg capsule - ciprofloxacin HCl (CIPRO) 500 mg tablet - HYDROcodone-acetaminophen (NORCO) 5-325 mg per tablet - mupirocin (BACTROBAN) 2 % ointment - ranitidine (ZANTAC) 150 mg tablet - pantoprazole DR (PROTONIX) 40 mg tablet - fluticasone (FLONASE) 50 mcg/actuation nasal spray - alpha tocopheryl acetate (VITAMIN E) 400 unit capsule - cyanocobalamin (VITAMIN B-12) 1,000 mcg tab - Cholecalciferol, Vitamin D3, (VITAMIN D) 1,000 unit cap - Potassium 99 mg tab - gabapentin (NEURONTIN) 300 mg capsule - venlafaxine XR (EFFEXOR XR) 150 mg 24 hr capsule - furosemide (LASIX) 20 mg tablet - lisinopril (PRINIVIL) 10 mg tablet - Catheter 24 Fr misc - metFORMIN (GLUCOPHAGE) 500 mg tablet - pantoprazole DR (PROTONIX) 40 mg tablet - diphenoxylate-atropine (LOMOTIL) 2.5-0.025 mg per tablet - pravastatin (PRAVACHOL) 20 mg tablet - oxyCODONE-acetaminophen (PERCOCET) 5-325 mg tablet - guaiFENesin (MUCINEX) 600 mg 12 hr tablet - levETIRAcetam (KEPPRA) 500 mg tablet - COMPOUNDED PRESCRIPTION - Sodium Chloride 0.9 % soln - Catheter 24 Fr misc - COMPOUNDED PRESCRIPTION - COMPOUNDED PRESCRIPTION - COMPOUNDED PRESCRIPTION - multivitamin with minerals (VISION/OPTIGEN) tablet - OXcarbazepine (TRILEPTAL) 300 mg tablet - triamcinolone (KENALOG IN ORABASE) 0.1 % paste - COMPOUNDED PRESCRIPTION - COMPOUNDED PRESCRIPTION - COMPOUNDED PRESCRIPTION - diphenhydrAMINE (BENADRYL) 25 mg capsule - Cranberry-Vitamin C-Vitamin E (CRANBERRY CONCENTRATE) 140- 100 mg cap - blood sugar diagnostic (GLUCOCARD VITAL SENSOR) test strip - COMPOUNDED PRESCRIPTION - COMPOUNDED PRESCRIPTION - syringe (BD SYRINGE) 60 mL Syrg - baclofen 10 mg tablet - blood sugar diagnostic(PRECISION XTRA TEST STRIPS) Review of Systems CONSTITUTIONAL: No fevers, chills night sweats, unintended weight loss CARDIOVASCULAR: No chest pain, dyspnea, palpitations, orthopnea, PND, ankle edema. PULM: No dyspnea, unexplained cough. GI: No dysphagia/odynophagia, problematic reflux, constipation, diarrhea, changes in stool habits, hematochezia, melena. : No new urinary complaints, including dysuria, gross hematuria or pyuria. NEURO: No new balance problems, peripheral weakness/paresthesias or numbness of concern. Physical Exam BP 132/56 (BP Site: Left Arm, BP Position: Sitting, BP Cuff Size: Regular Adult) Pulse 82 Resp 18 Ht 167.6 cm (5' 6) SpO2 94% General appearance: Well appearing, alert, in no acute distress, well nourished. Skin: Skin color, texture, turgor normal, no suspicious rashes or lesions Head: Normocephalic, no masses, lesions, tenderness or abnormalities Eyes: Anicteric sclera. Pupils are equally round and reactive to light. Extraocular movements are intact. Lungs: Lungs clear to auscultation. No wheezing, rhonchi, rales Heart: RRR without murmur, gallop, or rubs. Extremities: No deformities, edema, skin discoloration, clubbing or cyanosis. Good capillary refill. ASSESSMENT/PLAN: 1. Essential hypertension - ICD9: 401.9, ICD10: I10 (primary diagnosis) - good control - Recommended regular aerobic exercise. - Recommend home blood pressure monitoring, to bring results in on next visit - Goal of BP <130/80 - VENLAFAXINE ER 150 MG CAPSULE,EXTENDED RELEASE 24 HR - FUROSEMIDE 20 MG TABLET - LISINOPRIL 10 MG TABLET 2. Sacroiliitis, not elsewhere classified (HCC) - ICD9: 720.2, ICD10: M46.1 3. Medicare annual wellness visit, subsequent - ICD9: V70.0, ICD10: Z00.00 - Encouraged monthly Breast Self Exam - Follow up for annual exam in one year. 4. Breast cancer screening by mammogram - ICD9: V76.12, ICD10: Z12.31 - Encouraged monthly BSE - Follow up for annual exam in one year. - JANA SCREENING 5. Controlled type 2 diabetes mellitus without complication, without long-term current use of insulin (HCC) - ICD9: 250.00, ICD10: E11.9 Controlled. - Continue current medications - METFORMIN 500 MG TABLET 6. Mixed hyperlipidemia - ICD9: 272.2, ICD10: E78.2 - good control - Continue current medication. - PRAVASTATIN 20 MG TABLET 7. Gastroesophageal reflux disease without esophagitis - ICD9: 530.81, ICD10: K21.9 - Discussed lifestyle modifications including losing weight, limiting caffeine, no meals three hours before sleep and head of bed elevation - PANTOPRAZOLE 40 MG TABLET,DELAYED RELEASE GERALDINE VALENCIA MD Referring Provider: GERALDINE VALENCIA [[id number]] Allergies As of Date: 03/28/2018 Noted Allergy Reaction IRON 03/06/2013 14 - Other: See Comments Comments: From IV form; heart palpitations, chest pressure ADHESIVE TAPE (ROSINS) 10/19/2006 Comments: Blisters INFLUENZA VIRUS VACCINES 09/04/2012 12 - Shortness of Breath Comments: severe wheezing seasonal allergies [Other] 04/17/2006 SULFA (SULFONAMIDE ANTIBIOTICS) 07/11/2005 12 - Shortness of Breath Comments: Bactrim does not work for her MOBIC (MELOXICAM) 07/20/2006 8 - GI Upset Date Reviewed: 03/28/2018 Reviewed by: Jaqueline Strauss LPN - Fully Assessed Reason for Visit: Established Patient [175] Cmt: 4 month follow up Primary Visit Diagnosis:Essential hypertension [I10] Other Visit Diagnoses:Sacroiliitis, not elsewhere classified (HCC) [M46.1] Medicare annual wellness visit, subsequent [Z00.00] Breast cancer screening by mammogram [Z12.31] Controlled type 2 diabetes mellitus without complication, without long-term current use of insulin (HCC) [E11.9] Mixed hyperlipidemia [E78.2] Gastroesophageal reflux disease without esophagitis [K21.9] Chronic pain syndrome [G89.4] Order(s):[facility] SCREENING [[id number]] Order #: [id number] FUTURE venlafaxine ER (EFFEXOR XR) 150 mg 24 hr capsuleTake 1 capsule by mouth once daily.Disp: 60 capsuleRfl: 5 furosemide (LASIX) 20 mg tabletTake 1 tablet by mouth three times daily.Disp: 270 tabletRfl: 3 lisinopril (PRINIVIL) 10 mg tabletTake 1 tablet by mouth once daily.Disp: 90 tabletRfl: 3 metFORMIN (GLUCOPHAGE) 500 mg tabletTake 1 tablet by mouth twice daily with meals.Disp: 180 tabletRfl: [address] (PROTONIX) 40 mg tabletTake 1 tablet by mouth once daily.Disp: 30 tabletRfl: 3 pravastatin (PRAVACHOL) 20 mg tabletTake 1 tablet by mouth daily at bedtime.Disp: 90 tabletRfl: 3 HYDROcodone-acetaminophen (NORCO) 5-325 mg per tabletTake 1 tablet by mouth every 6 hours as needed for up to 30 days. Earliest Fill Date: 03/28/18Disp: 30 tabletRfl: 0 Prescriptions as of 03/28/2018 Sig: VENLAFAXINE ER 150 MG CAPSULE* Take 1 capsule by mouth once * FUROSEMIDE 20 MG TABLET Take 1 tablet by mouth three * LISINOPRIL 10 MG TABLET Take 1 tablet by mouth once d* METFORMIN 500 MG TABLET Take 1 tablet by mouth twice * PANTOPRAZOLE 40 MG TABLET,DEL* Take 1 tablet by mouth once d* PRAVASTATIN 20 MG TABLET Take 1 tablet by mouth daily * HYDROCODONE 5 MG-ACETAMINOPHE* Take 1 tablet by mouth every * NYSTATIN 100,000 UNIT/GRAM TO* Apply 1 application to affect* ALBUTEROL SULFATE HFA 90 MCG/* Inhale 2 Puffs as instructed * OXYBUTYNIN CHLORIDE ER 15 MG * Take 1 tablet by mouth once d* METOPROLOL SUCCINATE ER 25 MG* Take 1 tablet by mouth once d* NITROFURANTOIN MONOHYDRATE AND * Take 1 capsule by mouth once * CIPROFLOXACIN 500 MG TABLET Take 1 tablet by mouth twice * MUPIROCIN 2 % TOPICAL OINTMENT Apply 1 application to affect* RANITIDINE 150 MG TABLET Take 1 tablet by mouth twice * PANTOPRAZOLE 40 MG TABLET,DEL* Take 1 tablet by mouth daily * FLUTICASONE 50 MCG/ACTUATION * Use 2 Sprays in each nostril * VITAMIN E 400 UNIT CAPSULE Take 1 capsule by mouth twice* CYANOCOBALAMIN (VIT B-12) 1,0* Take 1 tablet by mouth once d* CHOLECALCIFEROL (VITAMIN D3) * Take 1 capsule by mouth once * POTASSIUM 99 MG TABLET Take 1 tablet by mouth once d* GABAPENTIN 300 MG CAPSULE Takes 900 in the morning, 120* CATHETER 24 FR 24 FR SILVER henry catheter. * DIPHENOXYLATE-ATROPINE 2.5 MG* Take 1 tablet by mouth four t* OXYCODONE-ACETAMINOPHEN 5 MG-* GUAIFENESIN ER 600 MG TABLET,* Take 2 tablets by mouth twice* LEVETIRACETAM 500 MG TABLET Take 500 mg by mouth once cora* COMPOUNDED PRESCRIPTION Flotation pillow for the scoo* SODIUM CHLORIDE 0.9 % SOLUTION To use for catheter irrigatio* CATHETER 24 FR 24 Fr silicone henry catheter* COMPOUNDED PRESCRIPTION Drainage bags Suprapubic Ca* COMPOUNDED PRESCRIPTION Split Gauze pads 4x4 Dx: U* COMPOUNDED PRESCRIPTION Insertion kit Suprapubic Ca* MULTIVITAMIN WITH MINERALS TA* Take 1 tablet by mouth four t* OXCARBAZEPINE 300 MG TABLET Take 1 tablet by mouth four t* TRIAMCINOLONE ACETONIDE 0.1 %* 1 application by DENTAL route* COMPOUNDED PRESCRIPTION Suprapubic Irrigating kit * COMPOUNDED PRESCRIPTION Urinary night bags. 2000ml * COMPOUNDED PRESCRIPTION Catheter [address] catheter* DIPHENHYDRAMINE 25 MG CAPSULE Take 25 mg by mouth twice cora* CRANBERRY CONCENTRATE-ASCORBI* Take 140 mg by mouth twice da* BLOOD SUGAR DIAGNOSTIC STRIPS Use as instructed COMPOUNDED PRESCRIPTION Home oxygen. 2L continuous. N* COMPOUNDED PRESCRIPTION 10 cc syringe Suprapubic* SYRINGE (DISPOSABLE) 60 ML Use daily as directed. Dx: v* BACLOFEN 10 MG TABLET Take 1 tablet by mouth three * PRECISION XTRA TEST STRIPS Test blood sugars once daily * Problem List As Of Date 03/28/2018 Noted Resolved Essential hypertension [I10] More... DEPRESSIVE DISORDER NEC [F32.9] SACROILIITIS NEC [M46.1] INTERNAL DERANGEMENT KNEE-CHRONIC CHONDROMALACI*INVALID FOR* DYSMETABOLIC SYNDROME X [E88.81] INVALID FOR* Spinal stenosis, lumbar region, without neuroge*INVALID FOR*10/24/2016 MORBID OBESITY [E66.01] INVALID FOR* More... VITAMIN D DEFICIENCY NOS [E55.9] INVALID FOR* More... Knee fracture, left [[id number]] INVALID FOR* More... Septic shock [A41.9, R65.21] INVALID FOR* Suprapubic catheter [Z93.59] INVALID FOR* More... Lower urinary tract infectious disease [N39.0] INVALID FOR* Hematuria [R31.9] INVALID FOR* Urinary retention [R33.9] INVALID FOR* Polypharmacy [Z79.899] INVALID FOR* Controlled substance agreement signed [Z79.899] INVALID FOR* Chronic pain [G89.29] INVALID FOR* Kidney stone [N20.0] INVALID FOR* Degenerative arthritis of knee, bilateral [M17.*INVALID FOR* Shoulder capsulitis [M75.80] INVALID FOR* Chronic pain syndrome [G89.4] INVALID FOR* Chronic midline low back pain with bilateral sc*INVALID FOR* Spinal stenosis, lumbar region, with neurogenic*INVALID FOR* Decubitus skin ulcer [L89.90] INVALID FOR* Decubitus ulcer, stage 2 [L89.92] INVALID FOR* Controlled type 2 diabetes mellitus without com*INVALID FOR* More... Sacral decubitus ulcer [L89.159] INVALID FOR*03/28/2018 Decubitus ulcer of right perineal ischial regio*INVALID FOR*03/28/2018 Prescriptions ordered this encounter Disp Refills Start End VENLAFAXINE ER 150 MG CAPSULE,EXTEND* 60 c* 5 03/28/2018 Route: ORAL Sig: Take 1 capsule by mouth once daily. FUROSEMIDE 20 MG TABLET 270 * 3 03/28/2018 Route: ORAL Sig: Take 1 tablet by mouth three times daily. LISINOPRIL 10 MG TABLET 90 t* 3 03/28/2018 Route: ORAL Sig: Take 1 tablet by mouth once daily. METFORMIN 500 MG TABLET 180 * 3 03/28/2018 Route: ORAL Sig: Take 1 tablet by mouth twice daily with meals. PANTOPRAZOLE 40 MG TABLET,DELAYED RE* 30 t* 3 03/28/2018 Route: ORAL Sig: Take 1 tablet by mouth once daily. PRAVASTATIN 20 MG TABLET 90 t* 3 03/28/2018 Route: ORAL Sig: Take 1 tablet by mouth daily at bedtime. HYDROCODONE 5 MG-ACETAMINOPHEN 325 M* 30 t* 0 03/28/2018 04/27/2018 Class: Print RX Route: ORAL Sig: Take 1 tablet by mouth every 6 hours as needed for up to 30 days. Earliest Fill Date: 03/28/18 Medications Discontinued During This Encounter venlafaxine XR (EFFEXOR XR) 150 mg 2* 60 c* 5 2017 03/28/2018 Route: ORAL Sig: Take 1 capsule by mouth once daily. Disc: Reason for discontinue is not on file. furosemide (LASIX) 20 mg tablet 270 * 3 09/26/2017 03/28/2018 Route: ORAL Sig: Take 1 tablet by mouth three times daily. Disc: Reason for discontinue is not on file. lisinopril (PRINIVIL) 10 mg tablet 90 t* 3 09/26/2017 03/28/2018 Route: ORAL Sig: Take 1 tablet by mouth once daily. Disc: Reason for discontinue is not on file. metFORMIN (GLUCOPHAGE) 500 mg tablet 180 * 3 09/13/2017 03/28/2018 Route: ORAL Sig: Take 1 tablet by mouth twice daily with meals. Disc: Reason for discontinue is not on file. pantoprazole DR (PROTONIX) 40 mg tab* 30 t* 3 05/09/2017 03/28/2018 Route: ORAL Sig: Take 1 tablet by mouth once daily. Disc: Reason for discontinue is not on file. pravastatin (PRAVACHOL) 20 mg tablet 90 t* 3 04/15/2017 03/28/2018 Route: ORAL Sig: Take 1 tablet by mouth daily at bedtime. Disc: Reason for discontinue is not on file. HYDROcodone-acetaminophen (NORCO) 5-* 30 t* 0 01/23/2018 03/28/2018 Class: Print RX Route: ORAL Sig: Take 1 tablet by mouth every 6 hours as needed for up to 30 days. Earliest Fill Date: 01/23/18 Disc: Reason for discontinue is not on file. Encounter Status:Closed by GERALDINE VALENCIA MD on 03/28/18 ALBUMIN/CREAT RATIO Collected: 03/23/2018 Status: F Source: READER 11:42 AM [facility] REPOSITORY TYPE CODE TESTS RESULT OUT OF REFERENCE UNITS RANGE LAB UCRR 20-300 mg/dL Creatinine,Ur 60.0 ine,Ran LAB UALBR 0.0-23.0 mg/L High Albumin Urine 849.3 Random LAB UALBCR 0-30 mg/g High Albumin/Creat 1416 Ratio Result Comment: 30 to 300 mg/g indicates an increased risk for diabetic nephropathy. Greater than 300 mg/g is consistent with clinical nephropathy. (Am J Kidney Disease 1995, 25:107) Performed By: #### UACR #### [facility] [address] [place], [place] [address] HEMOGLOBIN A1C Collected: 03/23/2018 Status: F Source: READER 11:36 AM [facility] REPOSITORY TYPE CODE TESTS RESULT OUT OF REFERENCE UNITS RANGE LAB HGBA1C 4.3-5.6 % High Hemoglobin A1c 6.2 LAB HBA0 mg/dL Est. Average Glucose 131 Result Comment: eAG: (Estimated average glucose) is a calculated value from HgbA1c and is title insurance sales representative of the average blood glucose level in the last 2-3 month period. Performed By: #### HBA1C #### [facility] [address] [place], [place] [address] PROGRESS Observed: 03/23/2018 Status: COMPLETED Source: READER 11:23 AM [facility] REPOSITORY HNO ID: [id number] Author: Diane Nielsen Ma Service: (none) Author Type: (none) Type: Progress Notes Filed: 03/23/2018 12:33 PM Note Text: In the supine position, the old suprapubic tube was removed with no difficulty. The area was prepped with betadine, and a new 24 Fr Henry was inserted through the stoma site into the bladder. The balloon was inflated with 30 cc's of sterile saline. The catheter irrigated well. The pt tolerated the procedure well without complications. Follow up as planned. ASHISH Murray MT, PA-C CNOV Observed: 03/23/2018 Status: COMPLETED Source: READER 11:00 AM [facility] REPOSITORY Office Visit (UROLWS) ISELA CAMARENA ([id number]) 1945 F Date Time Provider Department 03/23/18 11:00 AM HECTOR CROCKER (MELCHOR) UROLWS During your visit today, we recorded the following information about you: Diane Nielsen Ma 03/23/2018 11:24 AM Signed In the supine position, the old suprapubic tube was removed with no difficulty. The area was prepped with betadine, and a new 24 Fr Henry was inserted through the stoma site into the bladder. The balloon was inflated with 30 cc's of sterile saline. The catheter irrigated well. The pt tolerated the procedure well without complications. Follow up as planned. Hector E. Crocker, MPAS, MT, PA-C Referring Provider: SELF [200] Allergies As of Date: 03/23/2018 Noted Allergy Reaction IRON 03/06/2013 14 - Other: See Comments Comments: From IV form; heart palpitations, chest pressure ADHESIVE TAPE (ROSINS) 10/19/2006 Comments: Blisters INFLUENZA VIRUS VACCINES 09/04/2012 12 - Shortness of Breath Comments: severe wheezing seasonal allergies [Other] 04/17/2006 SULFA (SULFONAMIDE ANTIBIOTICS) 07/11/2005 12 - Shortness of Breath Comments: Bactrim does not work for her MOBIC (MELOXICAM) 07/20/2006 8 - GI Upset Date Reviewed: 03/23/2018 Reviewed by: Diane Nielsen Ma - Fully Assessed Reason for Visit: Tube Change-suprapubic [824] Primary Visit Diagnosis:Urinary retention [R33.9] Other Visit Diagnosis:Suprapubic catheter (FORMERLY [facility]) [Z93.59] Prescriptions as of 03/23/2018 Sig: NYSTATIN 100,000 UNIT/GRAM TO* Apply 1 application to affect* ALBUTEROL SULFATE HFA 90 MCG/* Inhale 2 Puffs as instructed * OXYBUTYNIN CHLORIDE ER 15 MG * Take 1 tablet by mouth once d* METOPROLOL SUCCINATE ER 25 MG* Take 1 tablet by mouth once d* NITROFURANTOIN MONOHYDRATE AND * Take 1 capsule by mouth once * CIPROFLOXACIN 500 MG TABLET Take 1 tablet by mouth twice * MUPIROCIN 2 % TOPICAL OINTMENT Apply 1 application to affect* RANITIDINE 150 MG TABLET Take 1 tablet by mouth twice * PANTOPRAZOLE 40 MG TABLET,DEL* Take 1 tablet by mouth daily * FLUTICASONE 50 MCG/ACTUATION * Use 2 Sprays in each nostril * VITAMIN E 400 UNIT CAPSULE Take 1 capsule by mouth twice* CYANOCOBALAMIN (VIT B-12) 1,0* Take 1 tablet by mouth once d* CHOLECALCIFEROL (VITAMIN D3) * Take 1 capsule by mouth once * POTASSIUM 99 MG TABLET Take 1 tablet by mouth once d* GABAPENTIN 300 MG CAPSULE Takes 900 in the morning, 120* VENLAFAXINE ER 150 MG CAPSULE* Take 1 capsule by mouth once * FUROSEMIDE 20 MG TABLET Take 1 tablet by mouth three * LISINOPRIL 10 MG TABLET Take 1 tablet by mouth once d* CATHETER 24 FR 24 FR SILVER henry catheter. * METFORMIN 500 MG TABLET Take 1 tablet by mouth twice * PANTOPRAZOLE 40 MG TABLET,DEL* Take 1 tablet by mouth once d* DIPHENOXYLATE-ATROPINE 2.5 MG* Take 1 tablet by mouth four t* PRAVASTATIN 20 MG TABLET Take 1 tablet by mouth daily * OXYCODONE-ACETAMINOPHEN 5 MG-* GUAIFENESIN ER 600 MG TABLET,* Take 2 tablets by mouth twice* LEVETIRACETAM 500 MG TABLET Take 500 mg by mouth once cora* COMPOUNDED PRESCRIPTION Flotation pillow for the scoo* SODIUM CHLORIDE 0.9 % SOLUTION To use for catheter irrigatio* CATHETER 24 FR 24 Fr silicone henry catheter* COMPOUNDED PRESCRIPTION Drainage bags Suprapubic Ca* COMPOUNDED PRESCRIPTION Split Gauze pads 4x4 Dx: U* COMPOUNDED PRESCRIPTION Insertion kit Suprapubic Ca* MULTIVITAMIN WITH MINERALS TA* Take 1 tablet by mouth four t* OXCARBAZEPINE 300 MG TABLET Take 1 tablet by mouth four t* TRIAMCINOLONE ACETONIDE 0.1 %* 1 application by DENTAL route* COMPOUNDED PRESCRIPTION Suprapubic Irrigating kit * COMPOUNDED PRESCRIPTION Urinary night bags. 2000ml * COMPOUNDED PRESCRIPTION Catheter [address] catheter* DIPHENHYDRAMINE 25 MG CAPSULE Take 25 mg by mouth twice cora* CRANBERRY CONCENTRATE-ASCORBI* Take 140 mg by mouth twice da* BLOOD SUGAR DIAGNOSTIC STRIPS Use as instructed COMPOUNDED PRESCRIPTION Home oxygen. 2L continuous. N* COMPOUNDED PRESCRIPTION 10 cc syringe Suprapubic* SYRINGE (DISPOSABLE) 60 ML Use daily as directed. Dx: v* BACLOFEN 10 MG TABLET Take 1 tablet by mouth three * PRECISION XTRA TEST STRIPS Test blood sugars once daily * HYDROCODONE 5 MG-ACETAMINOPHE* Take 1 tablet by mouth every * Problem List As Of Date 03/23/2018 Noted Resolved Essential hypertension [I10] More... DEPRESSIVE DISORDER NEC [F32.9] SACROILIITIS NEC [M46.1] INTERNAL DERANGEMENT KNEE-CHRONIC CHONDROMALACI*INVALID FOR* DYSMETABOLIC SYNDROME X [E88.81] INVALID FOR* Spinal stenosis, lumbar region, without neuroge*INVALID FOR*10/24/2016 MORBID OBESITY [E66.01] INVALID FOR* More... VITAMIN D DEFICIENCY NOS [E55.9] INVALID FOR* More... Knee fracture, left [[id number]] INVALID FOR* More... Septic shock [A41.9, R65.21] INVALID FOR* Suprapubic catheter [Z93.59] INVALID FOR* More... Lower urinary tract infectious disease [N39.0] INVALID FOR* Hematuria [R31.9] INVALID FOR* Urinary retention [R33.9] INVALID FOR* Polypharmacy [Z79.899] INVALID FOR* Controlled substance agreement signed [Z79.899] INVALID FOR* Chronic pain [G89.29] INVALID FOR* Kidney stone [N20.0] INVALID FOR* Degenerative arthritis of knee, bilateral [M17.*INVALID FOR* Shoulder capsulitis [M75.80] INVALID FOR* Chronic pain syndrome [G89.4] INVALID FOR* Chronic midline low back pain with bilateral sc*INVALID FOR* Spinal stenosis, lumbar region, with neurogenic*INVALID FOR* Decubitus skin ulcer [L89.90] INVALID FOR* Decubitus ulcer, stage 2 [L89.92] INVALID FOR* Controlled type 2 diabetes mellitus without com*INVALID FOR* More... Sacral decubitus ulcer [L89.159] INVALID FOR* Decubitus ulcer of right perineal ischial regio*INVALID FOR* Encounter Status:Closed by HECTOR CROCKER PA-C on 03/23/18 OT GENERAL EVALUATION Observed: 03/15/2018 Status: F Source: BOIS D ARC 10:41 AM [facility] REPOSITORY [facility] [place] [address] Fax REHABILITATION SERVICES INITIAL EVALUATION MR#: [id number] Acct: [id number] Name: ISELA CAMARENA Rep #: [id number] : 1945 72 From: Amarilys Costello Referring Dr.: HANANE Torres Status: REG RCR Insurance: MEDICARE PART A B Eval Date: [employer] Patient's Visit Information ISELA CAMARENA is a 72 year old F, referred to Occupational Therapy by DEDRICK Connelly, with a diagnosis of Hand weakness, pain, and stiffness. Date of Evaluation: 03/14/18 Occupational Therapist: Amarilys Costello - Subjective Subjective: Noted septic shock about 3 years ago. 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 She noted when out of come coma could strug shoulder and thats all she could do. She notes last mvmt to come back was R UE. 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 Notes never having nerve conduction, is not DMII but borderline, and is currently working with neurologist for neuropathy. Mostly concerned of pain and strength of hands. - Pain Right Wrist 8 Pain Intensity Range: 9 Left Wrist 2 Pain Intensity Range: 2, 3 - ROM Forearm: sup R 0-42, L 0-30 Wrist: flexion R 0-90, L 0-67; ext R 0-45, L 0-29 MP: WFL PIP: WFL DIP: WFL - Strength Power Brake Rebuilder: R 34, L 42 Lateral Pinch: R 10, L 10 Tripod Pinch: R 10, L 8 Tip-to-Tip Pinch: R 8, L 9 - Sensation Thumb: R 4.17, L 3.22 Index: R 4.08, L 3.22 Middle: R 3.84, L 3.61 Ring: R 3.22, L 3.84 Little: R 4.56, L 3.84 - Special Tests Phalen's (Carpal Tunnel): negative Tinel's: negative WHAT Test: negative - Hand/Wrist Evaluation Total Score of Pain AND Functional Sections: 82 - Goals Goal:: Pt. to increased B medical specialist by 10 lbs to promote increased stability of wrist and hand to promote manipulation of self-care items by d/c. Goal:: Pat to increased supination of B wrists to promote ability to complete self-care tasks 4/5 trials 80% of the itme by d/c. Goal:: Pt. to be mod I to complete pain management techniques safely 4/5 trials 80% of the time to decreased pain and promote particpation of ADl/IADls by d/c. Goal:: Pat to be mod I to complete decreased sensory stratgeies at home to promote participation and safety while completing ADL/IADLs by d/c. Goal:: Pat to be mod I to complete proper body mechanics of hand and wrist to decreased painand promote jt integrity while complete selfcare 4/5 trials 80% of the time by d/c. - Rehabilitation General Assessment: Pat arrived for OT eval on this date. She exhibit increased pain in B hand with R wrist being more painful than left. Notes pain 8/10 without movement but no grimances noted with movement. ROM of shoulder and elbows appear limited. PT working on shoulders. ROM of wrist WFL with some decreased supination. She is able to make composite fists. Some strength discrepancies noted and OT to work on strengthening. Decreased touch sensation noted through monofilament test. Sensory compensations and strategies to be educated on and complete to promote safety when at home. Rehabilitation Potential: Good - Anticipated Interventions Anticipated Interventions: A/AAROM/PROM, Strengthening, Massage, Triggerpoint Release, Modalities, Joint Protection/Energy Conservation, Ergonomic Education, Fine Motor Coord/Mushtaq, ADL Training, Caregiver Training, Home Program - Visit Plan Frequency: 1-2x /Week Duration: 4 Weeks TEXT: Thank you for the opportunity to evaluate your patient. For Medicare and Medicare HMO plans, please review the plan of care and approve it. It will need to be FAXED BACK to us at [phone] for Medicare purposes. Please let me know if there are questions or concerns regarding this plan of care. Physician Signature: Date: <Electronically signed by Amarilys Costello > 03/15/18 1041 CC: HANANE Torres; Geraldine Valencia MD DIRK Signed For Medicare only, by signing this I certify the plan of care. Physicians Signature Date CNPTOUTREACH Observed: 03/13/2018 Status: COMPLETED Source: DELVIN 12:00 AM [facility] REPOSITORY [facility] NICOLDIAMONDISELA ([id number]) 1945 F Date Time Provider Department 03/13/18 GERALDINE VALENCIA During your visit today, we recorded the following information about you: Allergies As of Date: 03/13/2018 Noted Allergy Reaction IRON 03/06/2013 14 - Other: See Comments Comments: From IV form; heart palpitations, chest pressure ADHESIVE TAPE (ROSINS) 10/19/2006 Comments: Blisters INFLUENZA VIRUS VACCINES 09/04/2012 12 - Shortness of Breath Comments: severe wheezing seasonal allergies [Other] 04/17/2006 SULFA (SULFONAMIDE ANTIBIOTICS) 07/11/2005 12 - Shortness of Breath Comments: Bactrim does not work for her MOBIC (MELOXICAM) 07/20/2006 8 - GI Upset Date Reviewed: 02/23/2018 Reviewed by: Diane Nielsen Ma - Fully Assessed Visit Diagnosis:Medication management [Z79.899] Order(s):ALBUMIN/CREAT RATIO RND UR [SQUACR] Order #: [id number] FUTURE Prescriptions as of 03/13/2018 Sig: X NYSTATIN 100,000 UNIT/GRAM TO* Apply 1 application to affect* ALBUTEROL SULFATE HFA 90 MCG/* Inhale 2 Puffs as instructed * OXYBUTYNIN CHLORIDE ER 15 MG * Take 1 tablet by mouth once d* METOPROLOL SUCCINATE ER 25 MG* Take 1 tablet by mouth once d* NITROFURANTOIN MONOHYDRATE AND * Take 1 capsule by mouth once * CIPROFLOXACIN 500 MG TABLET Take 1 tablet by mouth twice * X HYDROCODONE 5 MG-ACETAMINOPHE* Take 1 tablet by mouth every * X MUPIROCIN 2 % TOPICAL OINTMENT Apply 1 application to affect* FLUTICASONE 50 MCG/ACTUATION * Use 2 Sprays in each nostril * VITAMIN E 400 UNIT CAPSULE Take 1 capsule by mouth twice* CYANOCOBALAMIN (VIT B-12) 1,0* Take 1 tablet by mouth once d* CHOLECALCIFEROL (VITAMIN D3) * Take 1 capsule by mouth once * POTASSIUM 99 MG TABLET Take 1 tablet by mouth once d* GABAPENTIN 300 MG CAPSULE Takes 900 in the morning, 120* X RANITIDINE 150 MG TABLET Take 1 tablet by mouth twice * X PANTOPRAZOLE 40 MG TABLET,DEL* Take 1 tablet by mouth daily * X VENLAFAXINE ER 150 MG CAPSULE* Take 1 capsule by mouth once * X FUROSEMIDE 20 MG TABLET Take 1 tablet by mouth three * X LISINOPRIL 10 MG TABLET Take 1 tablet by mouth once d* X CATHETER 24 FR 24 FR SILVER henry catheter. * X METFORMIN 500 MG TABLET Take 1 tablet by mouth twice * DIPHENOXYLATE-ATROPINE 2.5 MG* Take 1 tablet by mouth four t* X PANTOPRAZOLE 40 MG TABLET,DEL* Take 1 tablet by mouth once d* X PRAVASTATIN 20 MG TABLET Take 1 tablet by mouth daily * OXYCODONE-ACETAMINOPHEN 5 MG-* GUAIFENESIN ER 600 MG TABLET,* Take 2 tablets by mouth twice* LEVETIRACETAM 500 MG TABLET Take 500 mg by mouth once cora* X COMPOUNDED PRESCRIPTION Flotation pillow for the scoo* X SODIUM CHLORIDE 0.9 % SOLUTION To use for catheter irrigatio* X CATHETER 24 FR 24 Fr silicone henry catheter* X COMPOUNDED PRESCRIPTION Drainage bags Suprapubic Ca* X COMPOUNDED PRESCRIPTION Split Gauze pads 4x4 Dx: U* X COMPOUNDED PRESCRIPTION Insertion kit Suprapubic Ca* MULTIVITAMIN WITH MINERALS TA* Take 1 tablet by mouth four t* X OXCARBAZEPINE 300 MG TABLET Take 1 tablet by mouth four t* TRIAMCINOLONE ACETONIDE 0.1 %* 1 application by DENTAL route* X COMPOUNDED PRESCRIPTION Suprapubic Irrigating kit * X COMPOUNDED PRESCRIPTION Urinary night bags. 2000ml * X COMPOUNDED PRESCRIPTION Catheter [address] catheter* DIPHENHYDRAMINE 25 MG CAPSULE Take 25 mg by mouth twice cora* CRANBERRY CONCENTRATE-ASCORBI* Take 140 mg by mouth twice da* BLOOD SUGAR DIAGNOSTIC STRIPS Use as instructed X COMPOUNDED PRESCRIPTION Home oxygen. 2L continuous. N* X COMPOUNDED PRESCRIPTION 10 cc syringe Suprapubic* SYRINGE (DISPOSABLE) 60 ML Use daily as directed. Dx: v* BACLOFEN 10 MG TABLET Take 1 tablet by mouth three * PRECISION XTRA TEST STRIPS Test blood sugars once daily * Problem List As Of Date 03/13/2018 Noted Resolved Essential hypertension [I10] More... DEPRESSIVE DISORDER NEC [F32.9] SACROILIITIS NEC [M46.1] INTERNAL DERANGEMENT KNEE-CHRONIC CHONDROMALACI*INVALID FOR* DYSMETABOLIC SYNDROME X [E88.81] INVALID FOR* Spinal stenosis, lumbar region, without neuroge*INVALID FOR*10/24/2016 MORBID OBESITY [E66.01] INVALID FOR* More... VITAMIN D DEFICIENCY NOS [E55.9] INVALID FOR* More... Knee fracture, left [[id number]] INVALID FOR* More... Septic shock [A41.9, R65.21] INVALID FOR* Suprapubic catheter [Z93.59] INVALID FOR* More... Lower urinary tract infectious disease [N39.0] INVALID FOR* Hematuria [R31.9] INVALID FOR* Urinary retention [R33.9] INVALID FOR* Polypharmacy [Z79.899] INVALID FOR* Controlled substance agreement signed [Z79.899] INVALID FOR* Chronic pain [G89.29] INVALID FOR* Kidney stone [N20.0] INVALID FOR* Degenerative arthritis of knee, bilateral [M17.*INVALID FOR* Shoulder capsulitis [M75.80] INVALID FOR* Chronic pain syndrome [G89.4] INVALID FOR* Chronic midline low back pain with bilateral sc*INVALID FOR* Spinal stenosis, lumbar region, with neurogenic*INVALID FOR* Decubitus skin ulcer [L89.90] INVALID FOR* Decubitus ulcer, stage 2 [L89.92] INVALID FOR* Controlled type 2 diabetes mellitus without com*INVALID FOR* More... Sacral decubitus ulcer [L89.159] INVALID FOR* Decubitus ulcer of right perineal ischial regio*INVALID FOR* Encounter Status:Closed by JOCELYN MOSERUSEBen on 08/24/18 INITAL EVALUATION (1) Observed: 03/06/2018 Status: F Source: ELLIS Dominique PT 12:05 PM [facility] REPOSITORY [facility] [place] [address] Fax REHABILITATION SERVICES INITIAL EVALUATION MR#: [id number] Acct: [id number] Name: ISELA CAMARENA Rep #: [id number] : 1945 72 From: Esau Reed PT, ATC Referring Dr.: HANANE Torres Status: REG RCR Insurance: MEDICARE PART A B [employer] Patient's Visit Information ISELA CAMARENA is a 72 year old F referred to Physical Therapy by Aura Torres NP-C with a diagnosis of B shoulder pain. Date of Evaluation: 03/06/18 Physical Therapist: Esau Reed, PT, - Visit Plan Frequency: 2-3x /Week Duration: 4-6 Weeks Plan: B shoulder strengthening, scap stab ex's, UBE, and HEP - Subjective Subjective: Pt reports she has had B shoulder pain for a long time. Pt reports her pain has progressively worsened. Pt also reports that her hands are really sore and she is limited with gripping stuff secondary to pain. Pt reports she had PT in the past for this same condition which really helped. Pt c/o a burning sensation in her hands which really hurts. No recent xrays or other dx tests. Pt reports occasional sleep diff at this time. Pt is ambidextrious. 6/10 pain at rest, 10/10 pain at worst - Pain B shoulder pain Pain Intensity (Out of 10): 6 Pain Intensity Range: 10 - Objective Neuro: B UE sensaation WNL to light touch. Palpation: Pt is very tender along the supraspinatus muscles. ROM: R shoulder flex= 50, abd= 55, ER= 45, IR severely limited. L shoulder flex= 80, abd= 75, ER= 40, IR severely limited. MMT: B shoulders 3-/5 throughout. Special tests: Pos empty can sign - Goals Goal 1:: Decrease B shoulder pain x 50% to aid with with sleep Goal Time Frame: 4-6 Weeks Goal 2:: Increase B shoulder strength x 1 grade to aid with IADL's Goal Time Frame: 4-6 Weeks Goal 3:: Increase B shoulder abd and flex ROM x 30 degrees to aid with overhead activity Goal Time Frame: 4-6 Weeks Goal 4:: I with HEP Goal Time Frame: 4-6 Weeks - Rehabilitation Potential Physical Therapy Diagnosis: B shoulder pain, weakness, and limited ROM secondary to deg changes in the shoulders Rehabilitation Potential: Good - Anticipated Interventions Patient/Client Instruction: Educate patient on: Condition, Plan of Care For the Purpose of:: To improve self management Therapeutic Exercise to Include: Strength training, Endurance training, Flexibilty training, Passive ROM, Active ROM, Scapular Strength/Stabilization For the Purpose of:: To decrease pain, To increase ROM, To improve muscle performance and motor function Cryotherapy (ice pack, ice massage): Yes For the Purpose of:: To decrease pain Thank you for the opportunity to evaluate your patient. For Medicare and Medicare HMO plans, please review the plan of care and approve it. It will need to be FAXED BACK to us at [phone] for Medicare purposes. Please let me know if there are questions or concerns regarding this plan of care. Physician Signature: Date: <Electronically signed by Esau Reed PT, ATC> 03/06/18 1205 CC: HANANE Torres; Geraldine Valencia MD [facility] Signed For Medicare only, by signing this I certify the plan of care. Physicians Signature Date PROGRESS Observed: 02/23/2018 Status: COMPLETED Source: READER 4:07 PM [facility] REPOSITORY HNO ID: [id number] Author: Diane Nielsen Ma Service: (none) Author Type: (none) Type: Progress Notes Filed: 02/23/2018 4:08 PM Note Text: In the supine position, the old suprapubic tube was removed with no difficulty. The area was prepped with betadine, and a new 24 Fr Henry was inserted through the stoma site into the bladder. The balloon was inflated with 30 cc's of sterile saline. The catheter irrigated well. The pt tolerated the procedure well without complications. Follow up as discussed with JENNIFER Murray MA CNNURSE Observed: 02/23/2018 Status: COMPLETED Source: READER 11:00 AM [facility] REPOSITORY Nurse Visit (UROLWS) BETOISELA THOMAS ([id number]) 1945 F Date Time Provider Department 02/23/18 11:00 AM NURSE UROL [facility] UROL[facility] During your visit today, we recorded the following information about you: Diane Nielsen Ma 02/23/2018 4:08 PM Signed In the supine position, the old suprapubic tube was removed with no difficulty. The area was prepped with betadine, and a new 24 Fr Henry was inserted through the stoma site into the bladder. The balloon was inflated with 30 cc's of sterile saline. The catheter irrigated well. The pt tolerated the procedure well without complications. Follow up as discussed with JENNIFER Murray MA Referring Provider: SELF [200] Allergies As of Date: 02/23/2018 Noted Allergy Reaction IRON 03/06/2013 14 - Other: See Comments Comments: From IV form; heart palpitations, chest pressure ADHESIVE TAPE (ROSINS) 10/19/2006 Comments: Blisters INFLUENZA VIRUS VACCINES 09/04/2012 12 - Shortness of Breath Comments: severe wheezing SULFA (SULFONAMIDE ANTIBIOTICS) 07/11/2005 12 - Shortness of Breath Comments: Bactrim does not work for her seasonal allergies [Other] 04/17/2006 MOBIC (MELOXICAM) 07/20/2006 8 - GI Upset Date Reviewed: 02/23/2018 Reviewed by: Diane Nielsen Ma - Fully Assessed Reason for Visit: Nurse Visit [792] Primary Visit Diagnosis:Urinary retention [R33.9] Prescriptions as of 02/23/2018 Sig: OXYBUTYNIN CHLORIDE ER 15 MG * Take 1 tablet by mouth once d* METOPROLOL SUCCINATE ER 25 MG* Take 1 tablet by mouth once d* NITROFURANTOIN MONOHYDRATE AND * Take 1 capsule by mouth once * CIPROFLOXACIN 500 MG TABLET Take 1 tablet by mouth twice * HYDROCODONE 5 MG-ACETAMINOPHE* Take 1 tablet by mouth every * MUPIROCIN 2 % TOPICAL OINTMENT Apply 1 application to affect* RANITIDINE 150 MG TABLET Take 1 tablet by mouth twice * PANTOPRAZOLE 40 MG TABLET,DEL* Take 1 tablet by mouth daily * FLUTICASONE 50 MCG/ACTUATION * Use 2 Sprays in each nostril * VITAMIN E 400 UNIT CAPSULE Take 1 capsule by mouth twice* CYANOCOBALAMIN (VIT B-12) 1,0* Take 1 tablet by mouth once d* CHOLECALCIFEROL (VITAMIN D3) * Take 1 capsule by mouth once * POTASSIUM 99 MG TABLET Take 1 tablet by mouth once d* GABAPENTIN 300 MG CAPSULE Takes 900 in the morning, 120* VENLAFAXINE ER 150 MG CAPSULE* Take 1 capsule by mouth once * FUROSEMIDE 20 MG TABLET Take 1 tablet by mouth three * LISINOPRIL 10 MG TABLET Take 1 tablet by mouth once d* CATHETER 24 FR 24 FR SILVER henry catheter. * METFORMIN 500 MG TABLET Take 1 tablet by mouth twice * PANTOPRAZOLE 40 MG TABLET,DEL* Take 1 tablet by mouth once d* DIPHENOXYLATE-ATROPINE 2.5 MG* Take 1 tablet by mouth four t* PRAVASTATIN 20 MG TABLET Take 1 tablet by mouth daily * OXYCODONE-ACETAMINOPHEN 5 MG-* ALBUTEROL SULFATE HFA 90 MCG/* Inhale 2 Puffs as instructed * GUAIFENESIN ER 600 MG TABLET,* Take 2 tablets by mouth twice* LEVETIRACETAM 500 MG TABLET Take 500 mg by mouth once cora* NYSTATIN 100,000 UNIT/GRAM TO* Apply 1 application to affect* COMPOUNDED PRESCRIPTION Flotation pillow for the scoo* SODIUM CHLORIDE 0.9 % SOLUTION To use for catheter irrigatio* CATHETER 24 FR 24 Fr silicone henry catheter* COMPOUNDED PRESCRIPTION Drainage bags Suprapubic Ca* COMPOUNDED PRESCRIPTION Split Gauze pads 4x4 Dx: U* COMPOUNDED PRESCRIPTION Insertion kit Suprapubic Ca* MULTIVITAMIN WITH MINERALS TA* Take 1 tablet by mouth four t* OXCARBAZEPINE 300 MG TABLET Take 1 tablet by mouth four t* TRIAMCINOLONE ACETONIDE 0.1 %* 1 application by DENTAL route* COMPOUNDED PRESCRIPTION Suprapubic Irrigating kit * COMPOUNDED PRESCRIPTION Urinary night bags. 2000ml * COMPOUNDED PRESCRIPTION Catheter [address] catheter* DIPHENHYDRAMINE 25 MG CAPSULE Take 25 mg by mouth twice cora* CRANBERRY CONCENTRATE-ASCORBI* Take 140 mg by mouth twice da* BLOOD SUGAR DIAGNOSTIC STRIPS Use as instructed COMPOUNDED PRESCRIPTION Home oxygen. 2L continuous. N* COMPOUNDED PRESCRIPTION 10 cc syringe Suprapubic* SYRINGE (DISPOSABLE) 60 ML Use daily as directed. Dx: v* BACLOFEN 10 MG TABLET Take 1 tablet by mouth three * PRECISION XTRA TEST STRIPS Test blood sugars once daily * Problem List As Of Date 02/23/2018 Noted Resolved Essential hypertension [I10] More... DEPRESSIVE DISORDER NEC [F32.9] SACROILIITIS NEC [M46.1] INTERNAL DERANGEMENT KNEE-CHRONIC CHONDROMALACI*INVALID FOR* DYSMETABOLIC SYNDROME X [E88.81] INVALID FOR* Spinal stenosis, lumbar region, without neuroge*INVALID FOR*10/24/2016 MORBID OBESITY [E66.01] INVALID FOR* More... VITAMIN D DEFICIENCY NOS [E55.9] INVALID FOR* More... Knee fracture, left [[id number]] INVALID FOR* More... Septic shock [A41.9, R65.21] INVALID FOR* Suprapubic catheter [Z93.59] INVALID FOR* More... Lower urinary tract infectious disease [N39.0] INVALID FOR* Hematuria [R31.9] INVALID FOR* Urinary retention [R33.9] INVALID FOR* Polypharmacy [Z79.899] INVALID FOR* Controlled substance agreement signed [Z79.899] INVALID FOR* Chronic pain [G89.29] INVALID FOR* Kidney stone [N20.0] INVALID FOR* Degenerative arthritis of knee, bilateral [M17.*INVALID FOR* Shoulder capsulitis [M75.80] INVALID FOR* Chronic pain syndrome [G89.4] INVALID FOR* Chronic midline low back pain with bilateral sc*INVALID FOR* Spinal stenosis, lumbar region, with neurogenic*INVALID FOR* Decubitus skin ulcer [L89.90] INVALID FOR* Decubitus ulcer, stage 2 [L89.92] INVALID FOR* Controlled type 2 diabetes mellitus without com*INVALID FOR* More... Sacral decubitus ulcer [L89.159] INVALID FOR* Decubitus ulcer of right perineal ischial regio*INVALID FOR* Encounter Status:Closed by DIANE NIELSEN MA on 02/23/18 PROGRESS Observed: 02/02/2018 Status: COMPLETED Source: READER 5:06 PM [facility] REPOSITORY HNO ID: [id number] Author: Hector Crocker (Pa) Service: (none) Author Type: Physician Shift Mgr Type: Progress Notes Filed: 02/02/2018 5:08 PM Note Text: In the supine position, the old suprapubic tube was removed with no difficulty. The area was prepped with betadine, and a new 24 Fr Henry was inserted through the stoma site into the bladder. The balloon was inflated with 30 cc's of sterile saline. The catheter irrigated well. The pt tolerated the procedure well without complications. Follow up as discussed with Patient ASHISH Murray MT, PA-C CNOV Observed: 02/02/2018 Status: COMPLETED Source: READER 11:00 AM [facility] REPOSITORY Office Visit (UROLWS) ISELA CAMARENA ([id number]) 1945 F Date Time Provider Department 02/02/18 11:00 AM HECTOR CROCKER) UROLWS During your visit today, we recorded the following information about you: MELCHOR Rodríguez 02/02/2018 5:08 PM Signed In the supine position, the old suprapubic tube was removed with no difficulty. The area was prepped with betadine, and a new 24 Fr Henry was inserted through the stoma site into the bladder. The balloon was inflated with 30 cc's of sterile saline. The catheter irrigated well. The pt tolerated the procedure well without complications. Follow up as discussed with Patient ASHISH Murray MT, PA-C Referring Provider: SELF [200] Allergies As of Date: 02/02/2018 Noted Allergy Reaction IRON 03/06/2013 14 - Other: See Comments Comments: From IV form; heart palpitations, chest pressure ADHESIVE TAPE (ROSINS) 10/19/2006 Comments: Blisters INFLUENZA VIRUS VACCINES 09/04/2012 12 - Shortness of Breath Comments: severe wheezing SULFA (SULFONAMIDE ANTIBIOTICS) 07/11/2005 12 - Shortness of Breath Comments: Bactrim does not work for her seasonal allergies [Other] 04/17/2006 MOBIC (MELOXICAM) 07/20/2006 8 - GI Upset Date Reviewed: 12/28/2017 Reviewed by: Diane Nielsen Ma - Fully Assessed Primary Visit Diagnosis:Suprapubic catheter (HCC) [Z93.59] Prescriptions as of 02/02/2018 Sig: HYDROCODONE 5 MG-ACETAMINOPHE* Take 1 tablet by mouth every * MUPIROCIN 2 % TOPICAL OINTMENT Apply 1 application to affect* RANITIDINE 150 MG TABLET Take 1 tablet by mouth twice * PANTOPRAZOLE 40 MG TABLET,DEL* Take 1 tablet by mouth daily * FLUTICASONE 50 MCG/ACTUATION * Use 2 Sprays in each nostril * VITAMIN E 400 UNIT CAPSULE Take 1 capsule by mouth twice* CYANOCOBALAMIN (VIT B-12) 1,0* Take 1 tablet by mouth once d* CHOLECALCIFEROL (VITAMIN D3) * Take 1 capsule by mouth once * POTASSIUM 99 MG TABLET Take 1 tablet by mouth once d* GABAPENTIN 300 MG CAPSULE Takes 900 in the morning, 120* VENLAFAXINE ER 150 MG CAPSULE* Take 1 capsule by mouth once * FUROSEMIDE 20 MG TABLET Take 1 tablet by mouth three * LISINOPRIL 10 MG TABLET Take 1 tablet by mouth once d* CATHETER 24 FR 24 FR SILVER henry catheter. * METFORMIN 500 MG TABLET Take 1 tablet by mouth twice * NITROFURANTOIN MONOHYDRATE AND * Take 1 capsule by mouth once * PANTOPRAZOLE 40 MG TABLET,DEL* Take 1 tablet by mouth once d* DIPHENOXYLATE-ATROPINE 2.5 MG* Take 1 tablet by mouth four t* PRAVASTATIN 20 MG TABLET Take 1 tablet by mouth daily * OXYCODONE-ACETAMINOPHEN 5 MG-* ALBUTEROL SULFATE HFA 90 MCG/* Inhale 2 Puffs as instructed * GUAIFENESIN ER 600 MG TABLET,* Take 2 tablets by mouth twice* LEVETIRACETAM 500 MG TABLET Take 500 mg by mouth once coar* OXYBUTYNIN CHLORIDE ER 15 MG * Take 1 tablet by mouth once d* METOPROLOL SUCCINATE ER 25 MG* Take 1 tablet by mouth once d* NYSTATIN 100,000 UNIT/GRAM TO* Apply 1 application to affect* COMPOUNDED PRESCRIPTION Flotation pillow for the scoo* SODIUM CHLORIDE 0.9 % SOLUTION To use for catheter irrigatio* CATHETER 24 FR 24 Fr silicone henry catheter* COMPOUNDED PRESCRIPTION Drainage bags Suprapubic Ca* COMPOUNDED PRESCRIPTION Split Gauze pads 4x4 Dx: U* COMPOUNDED PRESCRIPTION Insertion kit Suprapubic Ca* MULTIVITAMIN WITH MINERALS TA* Take 1 tablet by mouth four t* OXCARBAZEPINE 300 MG TABLET Take 1 tablet by mouth four t* TRIAMCINOLONE ACETONIDE 0.1 %* 1 application by DENTAL route* COMPOUNDED PRESCRIPTION Suprapubic Irrigating kit * COMPOUNDED PRESCRIPTION Urinary night bags. 2000ml * COMPOUNDED PRESCRIPTION Catheter [address] catheter* DIPHENHYDRAMINE 25 MG CAPSULE Take 25 mg by mouth twice cora* CRANBERRY CONCENTRATE-ASCORBI* Take 140 mg by mouth twice da* BLOOD SUGAR DIAGNOSTIC STRIPS Use as instructed COMPOUNDED PRESCRIPTION Home oxygen. 2L continuous. N* COMPOUNDED PRESCRIPTION 10 cc syringe Suprapubic* SYRINGE (DISPOSABLE) 60 ML Use daily as directed. Dx: v* BACLOFEN 10 MG TABLET Take 1 tablet by mouth three * PRECISION XTRA TEST STRIPS Test blood sugars once daily * Problem List As Of Date 02/02/2018 Noted Resolved Essential hypertension [I10] More... DEPRESSIVE DISORDER NEC [F32.9] SACROILIITIS NEC [M46.1] INTERNAL DERANGEMENT KNEE-CHRONIC CHONDROMALACI*INVALID FOR* DYSMETABOLIC SYNDROME X [E88.81] INVALID FOR* Spinal stenosis, lumbar region, without neuroge*INVALID FOR*10/24/2016 MORBID OBESITY [E66.01] INVALID FOR* More... VITAMIN D DEFICIENCY NOS [E55.9] INVALID FOR* More... Knee fracture, left [[id number]] INVALID FOR* More... Septic shock [A41.9, R65.21] INVALID FOR* Suprapubic catheter [Z93.59] INVALID FOR* More... Lower urinary tract infectious disease [N39.0] INVALID FOR* Hematuria [R31.9] INVALID FOR* Urinary retention [R33.9] INVALID FOR* Polypharmacy [Z79.899] INVALID FOR* Controlled substance agreement signed [Z79.899] INVALID FOR* Chronic pain [G89.29] INVALID FOR* Kidney stone [N20.0] INVALID FOR* Degenerative arthritis of knee, bilateral [M17.*INVALID FOR* Shoulder capsulitis [M75.80] INVALID FOR* Chronic pain syndrome [G89.4] INVALID FOR* Chronic midline low back pain with bilateral sc*INVALID FOR* Spinal stenosis, lumbar region, with neurogenic*INVALID FOR* Decubitus skin ulcer [L89.90] INVALID FOR* Decubitus ulcer, stage 2 [L89.92] INVALID FOR* Controlled type 2 diabetes mellitus without com*INVALID FOR* More... Sacral decubitus ulcer [L89.159] INVALID FOR* Decubitus ulcer of right perineal ischial regio*INVALID FOR* Disposition: Return in about 1 month (around 03/05/2018). Follow-up and Disposition History Recorded Encounter Status:Closed by HECTOR CROCKER PA-C on 02/02/18 PROGRESS Observed: 12/28/2017 Status: COMPLETED Source: READER 11:42 AM [facility] REPOSITORY HNO ID: [id number] Author: Diane Nielsen Ma Service: (none) Author Type: (none) Type: Progress Notes Filed: 12/28/2017 11:44 AM Note Text: In the supine position, the old suprapubic tube was removed with no difficulty. The area was prepped with betadine, and a new 24 Fr Henry was inserted through the stoma site into the bladder. The balloon was inflated with 30 cc's of sterile saline. The catheter irrigated well. The pt tolerated the procedure well without complications. Follow up as discussed with JENNIFER Murray MA PROGRESS Observed: 12/07/2017 Status: COMPLETED Source: READER 12:38 PM [facility] REPOSITORY HNO ID: [id number] Author: iDane Nielsen Ma Service: (none) Author Type: (none) Type: Progress Notes Filed: 12/07/2017 12:39 PM Note Text: Suprapubic catheter change performed as ordered. A 24 bulgarian henry catheter was replaced using sterile technique without complications. Balloon inflated with 30cc of sterile saline. Patient tolerated procedure well. Irrigation preformed to insure proper placement without complication. Patient to follow up in 1 month. Patient to call in the interim with any problems or concerns. Diane Nielsen Ma CNNURSE Observed: 12/07/2017 Status: COMPLETED Source: READER 11:00 AM [facility] REPOSITORY Nurse Visit (UROLWS) ISELA CAMARENA ([id number]) 1945 F Date Time Provider Department 12/07/17 11:00 AM NURSE [facility]OL [facility] During your visit today, we recorded the following information about you: Diane Nielsen Ma 12/07/2017 12:39 PM Signed Suprapubic catheter change performed as ordered. A 24 bulgarian henyr catheter was replaced using sterile technique without complications. Balloon inflated with 30cc of sterile saline. Patient tolerated procedure well. Irrigation preformed to insure proper placement without complication. Patient to follow up in 1 month. Patient to call in the interim with any problems or concerns. Diane Nielsen Ma Referring Provider: SELF [200] Allergies As of Date: 12/07/2017 Noted Allergy Reaction IRON 03/06/2013 14 - Other: See Comments Comments: From IV form; heart palpitations, chest pressure ADHESIVE TAPE (ROSINS) 10/19/2006 Comments: Blisters INFLUENZA VIRUS VACCINES 09/04/2012 12 - Shortness of Breath Comments: severe wheezing SULFA (SULFONAMIDE ANTIBIOTICS) 07/11/2005 12 - Shortness of Breath Comments: Bactrim does not work for her seasonal allergies [Other] 04/17/2006 MOBIC (MELOXICAM) 07/20/2006 8 - GI Upset Date Reviewed: 12/07/2017 Reviewed by: Diane Nielsen Ma - Fully Assessed Reason for Visit: Nurse Visit [792] Primary Visit Diagnosis:Urinary retention [R33.9] Prescriptions as of 12/07/2017 Sig: RANITIDINE 150 MG TABLET Take 1 tablet by mouth twice * PANTOPRAZOLE 40 MG TABLET,DEL* Take 1 tablet by mouth daily * FLUTICASONE 50 MCG/ACTUATION * Use 2 Sprays in each nostril * VITAMIN E 400 UNIT CAPSULE Take 1 capsule by mouth twice* CYANOCOBALAMIN (VIT B-12) 1,0* Take 1 tablet by mouth once d* CHOLECALCIFEROL (VITAMIN D3) * Take 1 capsule by mouth once * POTASSIUM 99 MG TABLET Take 1 tablet by mouth once d* GABAPENTIN 300 MG CAPSULE Takes 900 in the morning, 120* HYDROCODONE 5 MG-ACETAMINOPHE* Take 1 tablet by mouth every * MUPIROCIN 2 % TOPICAL OINTMENT Apply 1 application to affect* VENLAFAXINE ER 150 MG CAPSULE* Take 1 capsule by mouth once * FUROSEMIDE 20 MG TABLET Take 1 tablet by mouth three * LISINOPRIL 10 MG TABLET Take 1 tablet by mouth once d* CATHETER 24 FR 24 FR SILVER henry catheter. * METFORMIN 500 MG TABLET Take 1 tablet by mouth twice * NITROFURANTOIN MONOHYDRATE AND * Take 1 capsule by mouth once * PANTOPRAZOLE 40 MG TABLET,DEL* Take 1 tablet by mouth once d* DIPHENOXYLATE-ATROPINE 2.5 MG* Take 1 tablet by mouth four t* PRAVASTATIN 20 MG TABLET Take 1 tablet by mouth daily * OXYCODONE-ACETAMINOPHEN 5 MG-* ALBUTEROL SULFATE HFA 90 MCG/* Inhale 2 Puffs as instructed * GUAIFENESIN ER 600 MG TABLET,* Take 2 tablets by mouth twice* LEVETIRACETAM 500 MG TABLET Take 500 mg by mouth once cora* OXYBUTYNIN CHLORIDE ER 15 MG * Take 1 tablet by mouth once d* METOPROLOL SUCCINATE ER 25 MG* Take 1 tablet by mouth once d* NYSTATIN 100,000 UNIT/GRAM TO* Apply 1 application to affect* COMPOUNDED PRESCRIPTION Flotation pillow for the scoo* SODIUM CHLORIDE 0.9 % SOLUTION To use for catheter irrigatio* CATHETER 24 FR 24 Fr silicone henry catheter* COMPOUNDED PRESCRIPTION Drainage bags Suprapubic Ca* COMPOUNDED PRESCRIPTION Split Gauze pads 4x4 Dx: U* COMPOUNDED PRESCRIPTION Insertion kit Suprapubic Ca* MULTIVITAMIN WITH MINERALS TA* Take 1 tablet by mouth four t* OXCARBAZEPINE 300 MG TABLET Take 1 tablet by mouth four t* TRIAMCINOLONE ACETONIDE 0.1 %* 1 application by DENTAL route* COMPOUNDED PRESCRIPTION Suprapubic Irrigating kit * COMPOUNDED PRESCRIPTION Urinary night bags. 2000ml * COMPOUNDED PRESCRIPTION Catheter [address] catheter* DIPHENHYDRAMINE 25 MG CAPSULE Take 25 mg by mouth twice cora* CRANBERRY CONCENTRATE-ASCORBI* Take 140 mg by mouth twice da* BLOOD SUGAR DIAGNOSTIC STRIPS Use as instructed COMPOUNDED PRESCRIPTION Home oxygen. 2L continuous. N* COMPOUNDED PRESCRIPTION 10 cc syringe Suprapubic* SYRINGE (DISPOSABLE) 60 ML Use daily as directed. Dx: v* BACLOFEN 10 MG TABLET Take 1 tablet by mouth three * PRECISION XTRA TEST STRIPS Test blood sugars once daily * Problem List As Of Date 12/07/2017 Noted Resolved Essential hypertension [I10] More... DEPRESSIVE DISORDER NEC [F32.9] SACROILIITIS NEC [M46.1] INTERNAL DERANGEMENT KNEE-CHRONIC CHONDROMALACI*INVALID FOR* DYSMETABOLIC SYNDROME X [E88.81] INVALID FOR* Spinal stenosis, lumbar region, without neuroge*INVALID FOR*10/24/2016 MORBID OBESITY [E66.01] INVALID FOR* More... VITAMIN D DEFICIENCY NOS [E55.9] INVALID FOR* More... Knee fracture, left [[id number]] INVALID FOR* More... Septic shock [A41.9, R65.21] INVALID FOR* Suprapubic catheter [Z93.59] INVALID FOR* More... Lower urinary tract infectious disease [N39.0] INVALID FOR* Hematuria [R31.9] INVALID FOR* Urinary retention [R33.9] INVALID FOR* Polypharmacy [Z79.899] INVALID FOR* Controlled substance agreement signed [Z79.899] INVALID FOR* Chronic pain [G89.29] INVALID FOR* Kidney stone [N20.0] INVALID FOR* Degenerative arthritis of knee, bilateral [M17.*INVALID FOR* Shoulder capsulitis [M75.80] INVALID FOR* Chronic pain syndrome [G89.4] INVALID FOR* Chronic midline low back pain with bilateral sc*INVALID FOR* Spinal stenosis, lumbar region, with neurogenic*INVALID FOR* Decubitus skin ulcer [L89.90] INVALID FOR* Decubitus ulcer, stage 2 [L89.92] INVALID FOR* Controlled type 2 diabetes mellitus without com*INVALID FOR* More... Sacral decubitus ulcer [L89.159] INVALID FOR* Decubitus ulcer of right perineal ischial regio*INVALID FOR* Encounter Status:Closed by DIANE NIELSEN MA on 12/07/17 ALLERGIES ALLERGIES DATE TYPE / CODE NAME / CODE REACTION SEVERITY SOURCE Drug Sulfa Shortness of Unknown [place] [facility] Allergy/873162668( (Sulfonamide breath [facility] Antibiotics)/F [facility] [id number](RXNO Repository RM) Drug Influenza shortness of Unknown [place] 8 Allergy/459692077( Virus breath/severe [facility]) Vaccines/F0010 wheezing Hospital 66673(RXNORM) Repository Drug iron/[id number] from IV form Unknown [place] [facility] Allergy/884724525( 8(RXNORM) chest pressure [facility]) and [facility] palpitations Repository Drug adhesive blisters Unknown [place] 8 Allergy/207619684( tape/[id number] [facility]) 4(RXNORM) Hospital Repository Drug meloxicam/F006 gi upset Unknown [place] 8 Allergy/271464697( 765334(RXNORM) [facility] Hospital Repository Miscellaneous seasonal Other Unknown [place] 8 Allergy/300245317( allergies [facility]) Hospital Repository DRUG IRON OTHER: SEE C High [place] INGREDI/928233812( Clinic Main SNOMED CT) [place] Repository Drug INFLUENZA SHORTNESS OF [place] 2 Class/783060598(SN VIRUS VACCINES [facility] Main OMED CT) [place] Repository Chemical/[id number] ADHESIVE TAPE [place] [facility] (SNOMED CT) (ROSINS) [facility] Main [place] Repository DRUG MELOXICAM GI UPSET Low [place] INGREDI/794067844( [facility] Main SNOMED CT) [place] Repository Miscellaneous OTHER [place] Allergy/505503595( [facility] Main SNOMED CT) [place] Repository Drug SULFA SHORTNESS OF [place] 5 Class/269696781(SN (SULFONAMIDE Clinic Main OMED CT) ANTIBIOTICS) [place] Repository ENCOUNTERS ENCOUNTERS ADMIT/DISCHARGE ACCOUNT ADMITTING ENCOUNTER LOCATION SOURCE NUMBER CLASS 11/29/2018/11/30/19 [id number] Ambulatory [address] Repository 11/29/2018 [id number] Ambulatory [facility] ing:OLS.AVED Repository 11/22/2018 [id number] Ambulatory [facility] ing:OLS.AVED Repository 11/11/2018/11/15/19 [id number] [place], Inpatient [facility] ing:PCURoom: Repository [id number]: 1 11/11/2018 [id number] [place], Ambulatory BMSBuilding:[facility] Repository 11/11/2018 [id number] [place], Ambulatory BMSBuilding:[facility] Repository 11/11/2018 [id number] [place], Ambulatory BMSBuilding:[facility] Repository 11/11/2018 [id number] [place], Ambulatory BMSBuilding:[facility] Repository 11/11/2018 [id number] Agyepong, Ambulatory BMSBuilding:Chang Adorno MS.[facility] Repository 11/08/2018/11/08/20 [id number] Ambulatory [address] Repository 11/08/2018/11/09/20 [id number] Ambulatory [address] Repository 10/30/2018/11/02/20 [id number] Tereletsky, Inpatient [facility] ing:PCURoom: Repository [id number]: 1 10/30/2018 [id number] Tereletsky, Ambulatory BMSBuilding:Chang Bowman MS.[facility] Repository 10/30/2018 [id number] Tereletsky, Ambulatory BMSBuilding:Chang Bowman MS.[facility] Repository 10/30/2018 [id number] Tereletsky, Ambulatory BMSBuilding:Chang Bowman MS.CF.[facility] Repository 10/30/2018 [id number] Tereletsky, Ambulatory BMSBuilding[facility] 10/30/2018 [id number] Tereletsky, Ambulatory BMSBuilding:Chang Bowman MS.[facility] Repository 10/30/2018 [id number] Tereletsganesh, Ambulatory BMSBuilding:Chang Bowman MS.[facility] Repository 10/30/2018/11/02/20 [id number] Ambulatory BMSBuilding:W Ellis [facility] Repository 10/30/2018/11/02/20 [id number] Ambulatory BMSBuilding:W [facility] Repository 09/21/2018/09/24/20 [id number] Ambulatory [address] [place] Repository 08/24/2018/08/29/20 [id number] Ambulatory [address] [place] Repository 08/20/2018/08/20/20 [id number] Ambulatory [address] [place] Repository 07/30/2018/07/31/20 [id number] Ambulatory [address] [place] Repository 07/20/2018/07/20/20 [id number] Ambulatory [address] [place] Repository 06/21/2018/06/21/20 [id number] Ambulatory [address] [place] Repository 06/05/2018 [id number] Ambulatory [facility] ing:LAB Repository 05/24/2018/05/29/20 [id number] Ambulatory [address] [place] Repository 04/19/2018/04/19/20 [id number] Ambulatory [address] [place] Repository 04/13/2018/04/13/20 [id number] Ambulatory [address] [facility] ing:OT Repository 03/28/2018/03/29/20 [id number] Ambulatory [address] [place] Repository 03/23/2018/03/23/20 [id number] Ambulatory [address] [place] Repository 03/23/2018/03/26/20 [id number] Ambulatory [address] [place] Repository 02/23/2018/02/29/20 [id number] Ambulatory [address] [place] Repository 02/02/2018/02/09/20 [id number] Ambulatory [address] [place] Repository 12/28/2017/12/28/19 [id number] Ambulatory [address] [place] Repository 12/07/2017/12/07/19 [id number] Ambulatory [address] Repository PAYERS PAYERS ENCOUNTER GUARANTOR PAYER SUBSCRIBER SOURCE 11/29/2018 ISELA A Primary Insurance:SELF NOT GIVENUNK Ellis [id number] [facility] [place] Date:2018-11-29 Repository 32517Goq: (HP) 11/22/2018 ISELA A Primary Insurance:SELF NOT GIVENUNK Ellis [id number] [facility] [place] Date:2018-11-22 Repository 08313Fhs: (HP) 11/11/2018 ISELA A Primary ISELA A [place] [id number] Insurance:MEDICARE LOVITZDOB: Community KISTER PART A BPolicy Number: [id number] [id number] Repository 24111Ewg: (234) Date:2018-11-119083 (HP) 11/11/2018 Secondary ISELA A [place] Insurance:HUMANA LOVITZDOB: [facility] [id number] Hospital Number: Repository [id number] Date:9860-70-70RO [address] [place] [address]QX: 11/11/2018 Tertiary NOT GIVENUNK Ellis Insurance:SELF PAY [facility] Number: Effective Repository Date:2018-11-11 11/11/2018 ISELA A Primary ISELA A [place] [id number] Insurance:MEDICARE LOVITZDOB: Community KISTER PART A BPolicy Number: [id number] [id number] Repository 06[address]Oow: (234) Date:2018-11-113047 () 11/11/2018 Secondary ISELA A [place] Insurance:HUMANA LOVITZDOB: [facility] [id number] Hospital Number: Repository [id number] Date:7862-64-17RK [address] [place] [address]SQ: 11/11/2018 Tertiary NOT GIVENUNK [place] Insurance:SELF PAY [facility] Number: Effective Repository Date:2018-11-11 11/11/2018 ISELA A Primary ISELA A [place] [id number] Insurance:MEDICARE LOVITZDOB: Community KISTER PART A BPolicy Number: [id number] [id number] Repository 08923Vcq: 234) Date:2018-11-113657 () 11/11/2018 Secondary ISELA A [place] Insurance:HUMANA LOVITZDOB: [facility] [id number] Hospital Number: Repository [id number] Date:0077-65-31ZD [address] [address]WH: 11/11/2018 Tertiary NOT GIVENUNK Ellis Insurance:SELF PAY [facility] Number: Effective Repository Date:2018-11-11 11/11/2018 ISELA A Primary ISELA A [place] [id number] Insurance:MEDICARE LOVITZDOB: Community KISTER PART A BPolicy Number: [id number] [id number] Repository [address]43[address]Axq: 234) Date:2018-11-111460 () 11/11/2018 Secondary ISELA A [place] Insurance:HUMANA LOVITZDOB: [facility] [id number] Hospital Number: Repository [id number] Date:1091-41-20[address] [address]DD: 11/11/2018 Tertiary NOT GIVENUNK [place] Insurance:SELF PAY [facility] Number: Effective Repository Date:2018-11-11 11/11/2018 ISELA A Primary ISELA A Ellis [id number] Insurance:MEDICARE LOVITZDOB: Community KISTER PART A BPolicy Number: [id number] [id number] Repository [address]Tph: (234) Date:2018-11-11 () 11/11/2018 Secondary ISELA A [place] Insurance:HUMANA LOVITZDOB: Community COMMERCIALPolicy [id number] Hospital Number: Repository [id number] Date:6786-15-47GZ [address] [place] [address]UM: 11/11/2018 Tertiary NOT GIVENUNK [place] Insurance:SELF PAY [facility] Number: Effective Repository Date:2018-11-11 11/11/2018 ISELA A Primary ISELA A Ellis [id number] Insurance:MEDICARE LOVITZDOB: Community KISTER PART A BPolicy Number: [id number], [place] [id number] Repository [address]Kdc: (234) Date:2018-11-11 () 11/11/2018 Secondary ISELA A [place] Insurance:HUMANA LOVITZDOB: [facility] [id number] Hospital Number: Repository [id number] Date:4819-89-27SR [address] [place] [address]AD: 11/11/2018 Tertiary NOT GIVENUNK [place] Insurance:SELF PAY [facility] Number: Effective Repository Date:2018-11-11 10/30/2018 ISELA A Primary ISELA A [place] [id number] Insurance:MEDICARE LOVITZDOB: Community KISTER PART A BPolicy Number: [id number] [id number] Repository 115[address]Nmd: (234) Date:2018-10-30 () 10/30/2018 Secondary ISELA A [place] Insurance:HUMANA LOVITZDOB: [facility] [id number] Hospital Number: Repository [id number] Date:2661-52-39LU [address] [place] [address]GQ: 10/30/2018 Tertiary NOT GIVENUNK [place] Insurance:SELF PAY [facility] Number: Effective Repository Date:2018-10-30 10/30/2018 ISELA A Primary ISELA A Ellis [id number] Insurance:MEDICARE LOVITZDOB: Community KISTER PART A BPolicy Number: [id number], [place] [id number] Repository [address]Joq: (234) Date:2018-10-30 () 10/30/2018 Secondary ISELA A [place] Insurance:HUMANA LOVITZDOB: [facility] [id number] Hospital Number: Repository [id number] Date:3961-71-36QR [address] [place] [address]UO: 10/30/2018 Tertiary NOT GIVENUNK [place] Insurance:SELF PAY [facility] Number: Effective Repository Date:2018-10-30 10/30/2018 ISELA A Primary ISELA A [place] [id number] Insurance:MEDICARE LOVITZDOB: Community KISTER PART A BPolicy Number: [id number] [id number] Repository 567[address]Blt: (234) Date:2018-10-30 () 10/30/2018 Secondary ISELA A [place] Insurance:HUMANA LOVITZDOB: [facility] [id number] Hospital Number: Repository [id number] Date:4928-32-39QG [address] [place] [address]IA: 10/30/2018 Tertiary NOT GIVENUNK [place] Insurance:SELF PAY [facility] Number: Effective Repository Date:2018-10-30 10/30/2018 ISELA A Primary ISELA A [place] [id number] Insurance:MEDICARE LOVITZDOB: Community KISTER PART A BPolicy Number: [id number] [id number] Repository 83[address]Afy: (234) Date:2018-10-30 () 10/30/2018 Secondary ISELA A [place] Insurance:HUMANA LOVITZDOB: Community COMMERCIALPolicy [id number] Hospital Number: Repository [id number] Date:0493-59-47YA [address] [address]SN: 10/30/2018 Tertiary NOT GIVENUNK Ellis Insurance:SELF PAY [facility] Number: Effective Repository Date:2018-10-30 10/30/2018 ISELA A Primary ISELA A [place] [id number] Insurance:MEDICARE LOVITZDOB: Community KISTER PART A BPolicy Number: [id number] [id number] Repository [address]Xtn: 234) Date:2018-10-304372 () 10/30/2018 Secondary ISELA A [place] Insurance:HUMANA LOVITZDOB: [facility] [id number] Hospital Number: Repository [id number] Date:2657-44-88MP [address] [place] [address]SV: 10/30/2018 Tertiary NOT GIVENUNK Ellis Insurance:SELF PAY [facility] Number: Effective Repository Date:2018-10-30 10/30/2018 ISELA A Primary ISELA A [place] [id number] Insurance:MEDICARE LOVITZDOB: Community KISTER PART A BPolicy Number: [id number] [place], [place] [id number] Repository [address]Xcl: (234) Date:2018-10-305062 () 10/30/2018 Secondary ISELA A [place] Insurance:HUMANA LOVITZDOB: [facility] [id number] Hospital Number: Repository [id number] Date:9209-72-78JK [address] [address]IX: 10/30/2018 Tertiary NOT GIVENUNK Ellis Insurance:SELF PAY [facility] Number: Effective Repository Date:2018-10-30 10/30/2018 ISELA A Primary ISELA A [place] [id number] Insurance:MEDICARE LOVITZDOB: Community KISTER PART A BPolicy Number: [id number], [place] [id number] Repository [address]Tsb: (234) Date:2018-10-30 () 10/30/2018 Secondary ISELA A [place] Insurance:HUMANA LOVITZDOB: [facility] [id number] Hospital Number: Repository [id number] Date:7995-22-79YO [address] [address]RP: 10/30/2018 Tertiary NOT GIVENUNK Ellis Insurance:SELF PAY [facility] Number: Effective Repository Date:2018-10-30 10/30/2018 ISELA A Primary ISELA A [place] [id number] Insurance:MEDICARE LOVITZDOB: Community KISTER PART A BPolicy Number: [id number] [place], [place] [id number] Repository [address]Ogb: (234) Date:2018-10-30 () 10/30/2018 Secondary ISELA A [place] Insurance:HUMANA LOVITZDOB: [facility] [id number] Hospital Number: Repository [id number] Date:2147-12-80SQ[address] [address]RY: 10/30/2018 Tertiary NOT GIVENUNK [place] Insurance:SELF PAY [facility] Number: Effective Repository Date:2018-10-30 10/30/2018 ISELA A Primary ISELA A [place] [id number] Insurance:MEDICARE LOVITZDOB: Community KISTER PART A BPolicy Number: [id number], [place] [id number] Repository [address]Njm: (234) Date:2018-10-30 () 10/30/2018 Secondary ISELA A [place] Insurance:HUMANA LOVITZDOB: [facility] [id number] Hospital Number: Repository [id number] Date:4719-34-71CS [address] [place] [address]TO: 10/30/2018 Tertiary NOT GIVENUNK Ellis Insurance:SELF PAY [facility] Number: Effective Repository Date:2018-10-30 06/05/2018 ISELA A Primary ISELA A [place] [id number] Insurance:MEDICARE LOVITZDOB: Community KISTER PART A BPolicy Number: [id number] [place], [place] [id number] Repository [address]Ewp: (009) Date:2018-06-05-8061 () 06/05/2018 Secondary ISELA A [place] Insurance:HUMANA LOVITZDOB: [facility] [id number] Hospital Number: Repository [id number] Date:0103-80-10CT [address] [place] [address]QG: 06/05/2018 Tertiary NOT GIVENUNK [place] Insurance:SELF PAY [facility] Number: Effective Repository Date:2018-06-05 04/13/2018 ISELA A Primary ISELA A [place] [id number] Insurance:MEDICARE LOVITZDOB: Community Kister PART A BPolicy Number: [id number] [id number] Repository [address]Wqg: (064) Date:2001-09-13-3 () 04/13/2018 Secondary ISELA A [place] Insurance:HUMANA LOVITZDOB: [facility] [id number] Hospital Number: Repository [id number] Date:1460-02-04KA [address] [place] [address]LP: 04/13/2018 Tertiary NOT GIVENUNK [place] Insurance:SELF PAY [facility] Number: Effective Repository Date:2018-02-26
== END 2018-11-02 12:11 | disposition home health service (06) | DRG 698 ==
LOC: ED 13:21 → PCU 14:29 → ICU 17:02 → PCU 10-31 09:58
PROVIDERS: Admitting Provider Internal Medicine; Emergency Provider Emergency Medicine; Family Provider Internal Medicine; PCP Internal Medicine; Referring Provider Internal Medicine; Visit Provider Internal Medicine
DX: T83.510A Infection and inflammatory reaction due to cystostomy catheter, initial encounter (principal); A41.9 Sepsis, unspecified organism; G93.41 Metabolic encephalopathy; N17.0 Acute kidney failure with tubular necrosis; Z68.43 Body mass index [BMI] 50.0-59.9, adult; N17.9 Acute kidney failure, unspecified; N30.00 Acute cystitis without hematuria; J96.11 Chronic respiratory failure with hypoxia; I47.1 Supraventricular tachycardia; R53.81 Other malaise; E78.5 Hyperlipidemia, unspecified; E66.01 Morbid (severe) obesity due to excess calories; G47.33 Obstructive sleep apnea (adult) (pediatric); F32.9 Major depressive disorder, single episode, unspecified; Z91.19 Patient's noncompliance with other medical treatment and regimen; Z99.3 Dependence on wheelchair; Z79.899 Other long term (current) drug therapy; Y84.6 Urinary catheterization as the cause of abnormal reaction of the patient, or of later complication, without mention of misadventure at the time of the procedure; Z99.81 Dependence on supplemental oxygen; E11.42 Type 2 diabetes mellitus with diabetic polyneuropathy; I11.0 Hypertensive heart disease with heart failure
CPT/HCPCS: 36415; 36600; 71045; 71275; 80048; 80053; 81001; 82803; 82962; 83605; 83735; 83880; 84484; 85025; 85027; 85610; 85730; 87040; 87070; 87077; 87086; 87088; 87205; 93005; 93306; 97110; 97162; 97166; 97530; 97535; 97802; 99285; J7030; Q9957; Q9967; A4216; C8929; J0153; J1940

== ENCOUNTER 2018-11-11 18:02 | Inpatient (IN) | payer MEDICARE, OTHER, SELFPAY ==
[2018-10-30 15:02] VITALS: BMI 55.4
[2018-11-11 18:03] VITALS: BP 113/72; PULSE 102; RESP 18; TEMP 37.7; O2SAT 93; BMI 58.6
[2018-11-11 18:09] VITALS: BP 113/72; PULSE 102; RESP 18; TEMP 37.7; O2SAT 93
--- NOTE | 2018-11-11 18:26 | EKG12_ITS ---
Test Reason : WEAKNESS Blood Pressure : / mmHG Vent. Rate : 098 BPM Atrial Rate : 098 BPM P-R Int : 150 ms QRS Dur : 078 ms QT Int : 366 ms P-R-T Axes : 000 012 022 degrees QTc Int : 467 ms Normal sinus rhythm with sinus arrhythmia Inferior infarct , age undetermined Possible Anterolateral infarct , age undetermined Abnormal ECG Confirmed by SEBASTIÁN THOMPSON, KENNEDY ([id number]), editor trade journal JAMI TOLENTINO ([id number]) on 11/14/2018 2:28:52 PM Referred By: DC Confirmed By:KENNEDY LOWERY MD
--- NOTE | 2018-11-11 19:00 | RAD_ITS ---
STUDY: X-RAY CHEST REASON FOR EXAM: Female, 73 years old. Weakness. TECHNIQUE: Single frontal view of the chest. COMPARISON: October 31, 2018 FINDINGS: There is stable low volume inspiration. There is no demonstrated pleural abnormality. There is moderate cardiomegaly unchanged. Normal mediastinum and peace. Normal visualized pulmonary arteries. Normal visualized aortic arch and descending thoracic aorta. Normal visualized thoracic spine. Normal visualized ribs, clavicles, and shoulders. There is no demonstrated abnormality of the visualized soft tissue structures of the upper abdomen. RAD/Chest 1 View (Portable) IMPRESSION: Stable appearance of the chest with no new or acute finding. Electronically Signed: Dejon Luna MD at 19:30 EST , Service support ,
[2018-11-11 19:02] LABS: ALB/GLOB Ratio 0.6 RATIO (0.9-2.4); AST(SGOT) 17 U/L (15-37); Absolute Lymphocyte Count 0.98 X10^3/ul (0.83-4.51); Absolute Neutrophil Count 14.6 X10^3/uL (2.0-7.7); Alanine Aminotransfer ALT/SGPT 17 U/L (13-56); Albumin, Serum 3.1 g/dL (3.2-5.0); Alkaline Phosphatase 58 U/L (45-117); Anion Gap 6 (5-15); BUN 22 mg/dL (7-18); BUN/Creat Ratio 13.5 RATIO (10-20); Basophil# 0.03 X10^3/uL; Basophil% 0.2 % (0-1); Calcium,Total 8.9 mg/dL (8.5-10.1); Chloride 96 mmol/L (98-107); Creatinine, Serum 1.63 mg/dL (0.55-1.02); EST Glomerular Filtration Rate 33 mL/min (>60); Eosinophil# 0.13 X10^3/uL; Eosinophils% 0.8 % (0-5); Est Glom Filt Rate - Afr Amer 40 mL/min (>60); Estimated Creatinine Clearance 30.34 ml/min; Globulin 5.4 g/dL (2.2-4.2); Glucose 142 mg/dL (74-106); Hemoglobin 11.2 g/dl (12.0-15.0); Lymphocyte # 0.98 X10^3/ul (4.0); Lymphocyte % 5.7 % (19-41); Mean Corp Hgb Conc 31.1 g/gl (32-36); Mean Corpuscular Hgb 28.9 pg (27.0-32.0); Mean Platelet Vol. 9.8 fl (6.2-12.0); Monocyte% 8.7 % (0-10); Neutrophil # 14.56 X10^3/uL (2.7-7.7); Neutrophil % 84.2 % (47-70); POSITIVE COUNT NO; POSITIVE DIFFERENTIAL NO; POSITIVE MORPHOLOGY NO; Platelet Count 355 K/mm3 (150-450); Potassium 4.9 mmol/L (3.5-5.1); Protein, Total 8.5 g/dL (6.4-8.2); RBC Distribution Width CV 17.4 % (11.6-14.6); RBC Distribution Width SD 58.3 fl (35.1-43.9); Red Blood Count 3.87 M/mm3 (4.2-5.4); Sodium Level 133 mmol/L (136-145); White Blood Count 17.3 K/mm3 (4.4-11.0)
[2018-11-11] MEDS: 0.9% Normal Saline 1,000 ML IV.SOLN. 500 ML IV (19:09)
[2018-11-11 19:27] LABS: Lactic Acid 3.1 mmol/L (0.4-2.0)
[2018-11-11 19:55] LABS: International Normalized Ratio 1.2; Prothrombin Time (Protime)PT. 14.8 SECONDS (11.7-14.9)
[2018-11-11 20:01] LABS: Bacteria 0 SEEN /hpf (None Seen); Mucous, Urine 0 SEEN /hpf (<or=2+); Red Blood Cells-Urine 0 SEEN /hpf (0-5); Squamous Epithelial Cells - UA 0 SEEN /hpf (5-10)
[2018-11-11 20:02] LABS: Color, Urine Yellow (Yellow); Glucose, Dipstick Normal (Normal); Ketone-Dipstick Negative (Negative); Leukocyte Esterase-Dipstick 500 /ul (Negative); Nitrite-Dipstick Positive (Negative); Occult Blood-Urine 250 /ul (Negative); Protein-Dipstick 100 mg/dl (Negative); Urine Bilirubin Dipstick Negative (Negative); Urine Clarity Cloudy (Clear); Urine Urobilinogen Normal (Normal); Urine pH 6.5 (5.0 - 8.0)
[2018-11-11 20:04] LABS: Partial Thromboplast Time 32.9 Seconds (24.1-36.2)
[2018-11-11 20:09] LABS: White Blood Cells >100 SEEN /hpf (0-5)
--- NOTE | 2018-11-11 20:36 | HP.PCM_ITS ---
Problem List (1) Severe sepsis Status: Acute (2) Acute cystitis Status: Acute (3) Depression Status: Chronic History of Present Illness Date of Admission: 11/11/18 Chief Complaint: Fatigue and fall The patient is a 73 year old F on 10/30/2018 and discharged on 11/02/2018 for sepsis secondary to acute cystitis secondary to presence of a suprapubic catheter whose care was complicated with SVT and eventually was transferred to the intensive care unit presenting again on 11/11/2028 with a chief complaint of severe tiredness that started on the same day of current presentation to the emergency department (11/11/2018). Also patient reported that because of severe tiredness as she lost her balance and fell from a 'sitter stand whiles at her bathroom. Reportedly her urine from the suprapubic catheter has been more dark and has a stronger order to it. Associated with her symptoms is shortness of breath. He denies any fever, chills, nausea, vomiting or anorexia. At the emergency department she had a temperature of 100F; pulse rate of 108. She had a leukocytosis with a white count of 17.3; severely elevated creatinine of 1.63; abnormal urinalysis and lactic acid of 3.1. Patient was diagnosed with a severe sepsis and received IV fluid per severe sepsis protocol and was initiated on broad-spectrum antibiotics. Her medical history is remarkable for super morbid obesity; heart failure; depression, anxiety, asthma, diabetes mellitus, presence of suprapubic catheter, hypertension and heart failure. Past Medical History Past Medical History (Chronic Problems): Chronic Problems Debility (Chronic) Depression (Chronic) VITA (obstructive sleep apnea) (Chronic) Allergies adhesive tape Allergy (Verified 11/11/18 18:09) blisters Influenza Virus Vaccines Allergy (Verified 11/11/18 18:09) shortness of breath/severe wheezing iron Allergy (Verified 11/11/18 18:09) from IV form chest pressure and heart palpitations Sulfa (Sulfonamide Antibiotics) Allergy (Verified 11/11/18 18:09) Shortness of breath bactrim does not work for her-per pcp paperwork meloxicam [From Mobic] Adverse Reaction (Verified 11/11/18 18:09) gi upset seasonal allergies Allergy (Uncoded 11/11/18 18:09) Other Home Medications: Ambulatory Orders Medication Instructions Recorded DiphenhydrAMINE [Benadryl] 25 mg PO BID PRN PRN 09/30/13 Furosemide [Lasix] 20 mg PO TID 09/30/13 Pantoprazole Sodium [Protonix] 40 mg PO DAILY 09/30/13 Pravastatin [Pravachol] 20 mg PO QHS 09/30/13 Albuterol Inhaler [Ventolin Hfa] 2 puff INHALATION Q4H PRN PRN 10/30/18 Baclofen 10 mg PO TID PRN PRN 10/30/18 Cholecalciferol (VIT D3) [Vitamin 1,000 unit PO DAILY 10/30/18 D3] Ciprofloxacin [Cipro] 500 mg PO BID PRN 10/30/18 Cranberry Conc/Ascorbic Acid 1 each PO BID 10/30/18 [Cranberry Concentrate Softgel] Cyanocobalamin [Vitamin B12] 1,000 mcg PO DAILY@0800 10/30/18 Diphenoxylate/Atrop [Lomotil] 1 tablet PO 4X/DAY PRN PRN 10/30/18 Duloxetine Hcl [Cymbalta] 30 mg PO DAILY 10/30/18 Fluticasone 0.05% [Flonase Nasal 2 spray NASAL DAILY 10/30/18 Philip] Gabapentin [Neurontin] 600 mg PO TID 10/30/18 Guaifenesin [Mucinex] 1,200 mg PO BID PRN 10/30/18 Hydrocodone Bitart/Apap 5-325 1 tablet PO Q6H PRN PRN 10/30/18 [[place] 5/325] Lisinopril [Zestril] 10 mg PO DAILY 10/30/18 Metformin HCl [Glucophage] 500 mg PO BID 10/30/18 Metoprolol(XL)Succ [Toprol Xl 25 mg PO DAILY 10/30/18 (Beta [place])] Multivitamins,Ther W-Minerals 1 tablet PO 4X/DAY 10/30/18 [Multivitamin With Minerals] Mupirocin [Bactroban] 1 applicatio TOPICAL BID 10/30/18 Nitrofurantoin Macrocrystals 100 mg PO DAILY 10/30/18 [Macrobid] Nystatin Powder [Mycostatin Powder] 1 applicatio TOPICAL BID PRN PRN 10/30/18 Oxybutynin Chloride [Ditropan Xl] 15 mg PO DAILY 10/30/18 Potassium (Otc) [Potassium OTC] 99 mg PO DAILY 10/30/18 Ranitidine [Zantac] 150 mg PO BID 10/30/18 Triamcinolone 0.1% Dental Pst 1 applicatio TOPICAL 4X/DAY 10/30/18 [Kenalog Dental Paste] Venlafaxine XR [Effexor Xr] 150 mg PO BID 10/30/18 Vitamin E 400 units PO BID 10/30/18 levETIRAcetam tablet [Keppra 500 mg PO QHS 10/30/18 tablet] Surgical History: cholecystectomy, hysterectomy Psychiatric History: Anxiety, Depression 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 Smoking Status: Never smoker Alcohol: None - *Family History Maternal History Items: Diabetes, Heart Disease - Her father had a CABG and CHF, Unknown Paternal History Items: Heart Disease, No pertinent history Review of Systems Constitutional: Reports: Weakness, Fatigue. Denies: Chills, Fever, Weight Change HEENT: Denies: Head Aches, Sinus Congestion, Sinus Drainage Cardiovascular: Denies: Chest Pain, Palpitations Respiratory: Reports: Shortness of Breath. Denies: Cough, Shortness of breath at rest, Sputum production Gastrointestinal: Denies: Abdominal Pain, Nausea, Vomiting Genitourinary: Reports: -. Denies: Dysuria Musculoskeletal: Denies: Joint Pain, Joint Tenderness Skin: Denies: Rash, Wounds Neurological: Denies: Numbness, Tingling, Focal weakness Psychiatric: Denies: Anxiety, Depression, Homicidal Ideations, Suicidal Ideations Hematologic/ Lymphatic: Denies: Easy Bruising, Easy Bleeding VTE Information - Inpt Only VTE Present on Admission: No VTE Mechan Device Prophylaxis: None VTE Pharm Prophylaxis ordered?: Yes Patient Problems: Active and Suspected Problems Severe sepsis (Acute) Acute cystitis (Acute) - Physical Exam General: Alert, Oriented x3, Cooperative HEENT: Atraumatic, PERRLA, EOMI, Normocephalic Neck: Supple, No JVD, Negative Carotid Bruits Lungs: Clear to auscultation, Normal air movement Cardiovascular: No murmurs, Tachycardic Abdomen: Bowel Sounds Present, Soft, Non Tender Extremities: No edema, Capillary Refill Less than 3 Seconds Skin: - - Ulcer at the coccyx; excoriation to posterior left thigh. Musculoskeletal: No Tenderness to Palpation of Joints or Extremities Neurological: Cranial nerves II-XII grossly intact Psych/Mental Status: Normal Affect, Appropriate Vital Signs Temp Pulse Resp BP Pulse Ox 100 F H 102 H 18 113/72 93 11/11/18 18:09 11/11/18 18:09 11/11/18 18:09 11/11/18 18:09 11/11/18 18:09 Oxygen Delivery Method Room Air Weight: 169.9 kg Body Mass Index (BMI) 58.6 Laboratory Tests Past 24 Hrs 11/11/18 11/11/18 11/11/18 18:35 18:35 18:35 WBC 17.3 H RBC 3.87 L Hgb 11.2 L Hct 36.0 L MCV 93.0 MCH 28.9 MCHC 31.1 L RDW 17.4 H RDW Differential 58.3 H Plt Count 355 MPV 9.8 Immature Gran % (Auto) 0.400 Neut % (Auto) 84.2 H Lymph % (Auto) 5.7 L [place] % (Auto) 8.7 Eos % (Auto) 0.8 Baso % (Auto) 0.2 Absolute Neuts (auto) 14.6 H Absolute Lymphs (auto) 0.98 Total Counted Not Reportable PT INR APTT Sodium 133 L Potassium 4.9 Chloride 96 L Carbon Dioxide 31.0 Anion Gap 6 BUN 22 H Creatinine 1.63 H Estim Creat Clear Calc 30.34 Est GFR (MDRD) Af Amer 40 L Est GFR (MDRD) Non-Af 33 L BUN/Creatinine Ratio 13.5 Glucose 142 H Lactic Acid 3.1 H Calcium 8.9 Total Bilirubin 0.50 AST 17 ALT 17 Alkaline Phosphatase 58 Troponin I < 0.015 Total Protein 8.5 H Albumin 3.1 L Globulin 5.4 H Albumin/Globulin Ratio 0.6 L Urine Color Urine Clarity Urine pH Ur Specific [place] Urine Protein Urine Glucose (UA) Urine Ketones Urine Occult Blood Urine Nitrite Urine Bilirubin Urine Urobilinogen Ur Leukocyte Esterase Urine RBC Urine WBC Ur Squamous Epith Cells Urine Bacteria Urine Mucus 11/11/18 11/11/18 19:25 19:57 WBC RBC Hgb Hct MCV MCH MCHC RDW RDW Differential Plt Count MPV Immature Gran % (Auto) Neut % (Auto) Lymph % (Auto) [place] % (Auto) Eos % (Auto) Baso % (Auto) Absolute Neuts (auto) Absolute Lymphs (auto) Total Counted PT 14.8 INR 1.2 APTT 32.9 Sodium Potassium Chloride Carbon Dioxide Anion Gap BUN Creatinine Estim Creat Clear Calc Est GFR (MDRD) Af Amer Est GFR (MDRD) Non-Af BUN/Creatinine Ratio Glucose Lactic Acid Calcium Total Bilirubin AST ALT Alkaline Phosphatase Troponin I Total Protein Albumin Globulin Albumin/Globulin Ratio Urine Color Yellow Urine Clarity Cloudy Urine pH 6.5 Ur Specific [place] 1.010 Urine Protein 100 H Urine Glucose (UA) Normal Urine Ketones Negative Urine Occult Blood 250 H Urine Nitrite Positive H Urine Bilirubin Negative Urine Urobilinogen Normal Ur Leukocyte Esterase 500 H Urine RBC 0 SEEN Urine WBC >100 SEEN Ur Squamous Epith Cells 0 SEEN Urine Bacteria 0 SEEN Urine Mucus 0 SEEN Assessment/Plan All Active Problems Sepsis (Acute) MICHAELLE (acute kidney injury) (Acute) Shortness of breath (Acute) Tachycardia (Acute) Severe sepsis (Acute) Acute cystitis (Acute) Suprapubic catheter dysfunction (Acute) UTI (urinary tract infection) (Acute) The patient is a 73 year old F with a significant history of super morbid obe sity; heart failure; depression, anxiety, asthma, diabetes mellitus, presence of suprapubic catheter, hypertension and heart failure who was admitted at our Hospital on 10/30/2018 and discharged on 11/02/2018 for sepsis secondary to acute cystitis with suprapubic catheter; and whose care was complicated with SVT and was eventually was transferred to the intensive care unit presenting again on 11/11/2028 with a chief complaint of a severe fatigue, and found to meet SIRS criteria and have abnormal urinalysis and elevated lactic acid consistent with a severe sepsis secondary to acute cystitis secondary to suprapubic catheter. Severe sepsis secondary to acute cystitis secondary to suprapubic catheter Patient met Sirs criteria with elevated white count of 17.3; and elevated heart rates of 108. She made diagnosis of severe sepsis secondary to end organ damage as evidenced by lactic acid of 3.1; and kidney injury with creatinine of 1.63. Review of old records show that his creatinine on 06/05/2018 was 0.8. Hold home as needed Cipro and daily nitrofurantoin. Blood culture x2 was obtained at the emergency department; results are pending. Urine culture is pending. Elevated lactic acid on admission; trend. Received broad-spectrum antibiotic emergency department ceftriaxone. Ceftriaxone continued. Tylenol as needed for fever. Acute kidney injury Her creatinine on admission was 1.63. Review of old records show that her creatinine on 06/05/2018 was 0.8. Her BUN over creatinine was 13.5. 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 Patient received IV fluids at emergency department. We will not continue IV fluids at this time since patient is on home Lasix. Lasix was held on admission. Trend BMP Avoid nephrotoxics Diabetes mellitus Admission blood glucose was within goal. Because of lactic acidosis would hold metformin and Will initiate on correction scale insulin. Heart failure with preserved ejection fraction Review of old records showed that echocardiogram on 10/31/2018 showed an ejection fraction of 75% and with stage I diastolic dysfunction. The echocardiogram was unable to estimate her right ventricular systolic blood pressure due to inadequate jets. Consider resuming Lasix. Decubitus ulcer Calmoseptine ordered Wound care consult. Left leg excoriation continue Bactroban Arthritis Patient reports that she use Keppra for pain. Keppra continued. Keppra continued [place] continued. Intertrigo Nystatin cream to folds. DVT prophylaxis Subcutaneous heparin ordered. Code Visit Inpatient E&M: 25842 Init Hosp L3
--- NOTE | 2018-11-11 20:46 | ED.VISSUMM ---
- ER Visit Summary Date of Service: 11/11/18 Chief Complaint: Tired History of Present Illness: The patient is a 73 F who presents with tiredness and generalized weakness that started yesterday and got worse today. This is associated with dark urine. She felt so weak today that she slid down into a sitting position. She says she did not injure anything, only her pride. She was obtained to confirm ascites was recently admitted for sepsis from a UTI with acute kidney injury, encephalopathy, shortness of breath, and tachycardia. She is currently on Macrobid and Cipro. She has a suprapubic catheter and is frequently treated for UTIs. Fevers. Denies chest pain or shortness of breath. denies GI symptoms. Physical Examination: Afebrile. Heart rate 102 otherwise vitals normal. No oriented. No acute distress. Heart tachycardic but regular. Lungs clear. Abdomen soft. Urine is dark in color. Extremities show 2+ edema, symmetric. Pulses strong and equal. Skin normal in color. Test Results: EKG showed sinus rhythm at a rate of 98. Nonspecific changes. No sign of acute ischemia or infarction pattern. White count 17.3 and hemoglobin 11.2. Sodium 133 and chloride 96, glucose 142, BUN 22, creatinine 1.63. Hepatic panel and coags normal. Urinalysis consistent with a UTI. Cultures pending. Troponin normal. Lactate 3.1. Chest x-ray unremarkable. Emergency Department Course and Treatment: Patient was treated with fluid bolus for ideal body weight. She meets severe sepsis criteria. This is likely from a UTI. She has been on Cipro and Macrobid. She was treated with Rocephin. Patient is hemodynamically stable and not in shock. She will need admission for further care. Discussed with the hospitalist. Treatment Plan: As above Disposition: Admission Impression: 1. UTI 2. Severe sepsis This note was generated with [employer] dictation software. It may contain incorrect words, spelling, and punctuation that were not noted in review of the chart prior to signing ED Disposition - Plan for ED Patient: Chief Complaint: Weakness Referrals: Noy Chakraborty MD [Primary Care Provider] -
[2018-11-11 21:16] VITALS: BP 154/136; PULSE 108; RESP 20; TEMP 37.4; O2SAT 94
[2018-11-11] MEDS: 0.9% Normal Saline 1,000 ML 999 ML IV (21:16)
[2018-11-11] MEDS: Ceftriaxone 1 GM/50 ML BAG IV (21:16)
[2018-11-11 21:41] VITALS: PULSE 107
[2018-11-11 21:44] VITALS: BMI 56.9; BMI 58.7
[2018-11-11 21:45] VITALS: BP 134/59; PULSE 106; RESP 18; TEMP 37.7; O2SAT 98
[2018-11-11] MEDS: Nystatin Powder 15gm Bottle 1 APPLIC TOPICAL (22:40)
[2018-11-11] MEDS: Menthol/Lanolin/Calamine/Znox 113 GM Tube 1 APPLIC TOPICAL (22:40)
[2018-11-11 22:41] LABS: Reflex Lactate? Y
[2018-11-11] MEDS: Mupirocin Ointment 22gm Tube 1 APPLIC TOPICAL (22:41)
[2018-11-11] MEDS: Gabapentin 600 MG Tablet PO (22:41)
[2018-11-11] MEDS: Venlafaxine XR 150 MG Capsule PO (22:42)
[2018-11-11] MEDS: Famotidine 20 MG Tablet PO (22:42)
[2018-11-11] MEDS: Pravastatin 20 MG Tablet PO (22:42)
[2018-11-11] MEDS: levETIRAcetam 500 MG Tablet PO (22:42)
[2018-11-11 23:38] VITALS: PULSE 102
[2018-11-11 23:40] LABS: Bedside Glucose 120 mg/dL (70-110)
[2018-11-11 23:49] LABS: Lactic Acid 1.8 mmol/L (0.4-2.0)
[2018-11-12] VITALS (14 sets, daily range): BP systolic 105–131; BP diastolic 44–57; PULSE 85–109; RESP 18; TEMP 37.1–38.2; O2SAT 94–96
[2018-11-12] MEDS: Gabapentin 600 MG Tablet PO ×3 (05:45→22:43)
[2018-11-12] MEDS: Menthol/Lanolin/Calamine/Znox 113 GM Tube 1 APPLIC TOPICAL ×3 (05:45→22:43)
[2018-11-12] MEDS: Acetaminophen 325 MG Tablet 650 MG PO (05:46)
[2018-11-12 06:02] LABS: Absolute Neutrophil Count 8.7 X10^3/uL (2.0-7.7); Basophil# 0.03 X10^3/uL; Basophil% 0.3 % (0-1); Eosinophil# 0.12 X10^3/uL; Eosinophils% 1.1 % (0-5); Hematocrit 31.6 % (37-47); Hemoglobin 9.7 g/dl (12.0-15.0); Mean Corp Hgb Conc 30.7 g/gl (32-36); Mean Corpuscular Volume 94.3 fL (81-99); Mean Platelet Vol. 9.8 fl (6.2-12.0); Monocyte# 1.04 X10^3/uL; Monocyte% 9.4 % (0-10); Neutrophil # 8.71 X10^3/uL (2.7-7.7); Platelet Count 288 K/mm3 (150-450); RBC Distribution Width CV 17.3 % (11.6-14.6); RBC Distribution Width SD 57.3 fl (35.1-43.9); Red Blood Count 3.35 M/mm3 (4.2-5.4)
[2018-11-12 06:06] LABS: POSITIVE COUNT NO; POSITIVE DIFFERENTIAL NO; POSITIVE MORPHOLOGY NO
[2018-11-12 06:25] LABS: Anion Gap 8 (5-15); BUN 20 mg/dL (7-18); BUN/Creat Ratio 15.5 RATIO (10-20); Calcium,Total 8.6 mg/dL (8.5-10.1); Chloride 101 mmol/L (98-107); Creatinine, Serum 1.29 mg/dL (0.55-1.02); EST Glomerular Filtration Rate 43 mL/min (>60); Est Glom Filt Rate - Afr Amer 52 mL/min (>60); Glucose 160 mg/dL (74-106); Potassium 3.7 mmol/L (3.5-5.1); Sodium Level 138 mmol/L (136-145)
[2018-11-12 07:02] LABS: Bedside Glucose 156 mg/dL (70-110)
[2018-11-12] MEDS: Multivitamin (Healthy Eyes) Capsule 1 CAP PO ×3 (09:51→17:31)
[2018-11-12] MEDS: Mupirocin Ointment 22gm Tube 1 APPLIC TOPICAL ×2 (09:52→22:43)
[2018-11-12] MEDS: Vitamin E 400 UNITS Capsule PO ×2 (09:52→17:31)
[2018-11-12] MEDS: DULoxetine Hcl 30 MG Capsule PO (09:53)
[2018-11-12] MEDS: Tolterodine Tartrate 2 MG CAP.SA PO (09:53)
[2018-11-12] MEDS: Venlafaxine XR 150 MG Capsule PO ×2 (09:53→22:42)
[2018-11-12] MEDS: Cyanocobalamin 500 MCG Tablet 1000 MCG PO (09:53)
[2018-11-12] MEDS: Pantoprazole Sodium 40 MG Tablet PO (09:54)
[2018-11-12] MEDS: Famotidine 20 MG Tablet PO ×2 (09:54→22:42)
[2018-11-12] MEDS: Fluticasone 0.05% 1 SPRAY NASAL.SRY 2 SPRAY NASAL (09:54)
[2018-11-12] MEDS: Metoprolol(XL)Succ 25 MG Tablet PO (09:55)
[2018-11-12] MEDS: Glucerna Shake 120 ML LIQUID PO (09:57)
[2018-11-12] MEDS: Nystatin Powder 15gm Bottle 1 APPLIC TOPICAL ×2 (12:01→22:43)
--- NOTE | 2018-11-12 12:30 | CASEMGMT ---
Addendum entered by Asya Mcdermott 11/12/18 15:48: Resumption of care order placed. Berry MUÑOZ CM Original Note: TONI MARTINES assessment: Face to Face with patient for initial transition planning/care coordination assessment. TONI MARTINES introduced self and role at [facility], pt voices understanding and consents to assessment at this time. Pt is sitting up in bed in no distress at this time. Pt is A/Ox4 at this time and answers all questions appropriately at this time. Care providers, pharmacy, and demographics verified at this time. PCP: [facility] Specialists: nalini Robertson Pharmacy: [facility] Insurance: [facility] A/B, [employer] Prescription Benefit: [employer] Living Will/HPOA: Pt states does have LW/HPOA but they are not currently on file at [facility]. Pt is aware at this time. Pt states that her sister, Esperanza Ribeiro, is HPOA. LNOK: Esperanza Ribeiro, sister Living Arrangements: Pt states lives with caregiver in mobile home and states no concerns at home at this time. Transportation: Pt states caregiver or sister drives and states no transportation concerns at this time. DME/HHC: Pt has the following DME: hospital bed w/ trapeze, w/c, medical alert, HCP toilet, sit to stand, bipap and home oxygen 2liters at bedtime thru [facility]. 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 for 6 months in the past. Pt states that HHC PT/OT just discharged her. Pt states no concerns with going home at time of discharge. Pt is retired. Pt states no further concerns/needs at this time. CM to follow for any further discharge planning/needs. Advised pt to ask for CM if any further questions/concerns/needs arise, voices understanding. Plan: Home w/ resumption of HHC and caregiver in place, pending PT/OT evals. Berry MUÑOZ CM
[2018-11-12 12:31] LABS: Bedside Glucose 184 mg/dL (70-110)
[2018-11-12] MEDS: Insulin Lispro 100 UNIT/ML INSULN.PEN SQ ×2 (12:55→17:29)
[2018-11-12 16:26] LABS: Bedside Glucose 158 mg/dL (70-110)
--- NOTE | 2018-11-12 18:39 | PN_ITS ---
Patient Problems: Active and Suspected Problems Severe sepsis (Acute) Acute cystitis (Acute) Subjective: Ceftriaxone day #2 The patient is a 73-year-old female with a past medical history of depression, s at [facility] on 11/11/2018 complaining of uper morbid obesity, congestive heart failure, anxiety, asthma, diabetes mellitus, chronic suprapubic catheter and HTN who presented to the ED generalized fatigue and a fall at home. She was recently an inpatient at [facility] admitted on 10/30/2018 for sepsis secondary to acute complicated cystitis and discharged on 11/02/2018. Vital signs at presentation to the emergency room were temperature 100 ?F, pulse rate 102, blood pressure 113/72, respiratory rate 18 and she was 93% saturated on room air. Lab at admission showed an elevated white blood cell count at 17.3 with a left shift. Hemoglobin was 11.2 and was 9.9 at discharge from the hospital on 11/02/2018. Creatinine was elevated at 1.63, up from 1.21 at discharge from the hospital on 11/02/2018. In May of this year her creatinine was 0.8. Chest x-ray showed no infiltrates, pleural effusions or significant pulmonary vascular congestion. UA showed greater than 100 WBCs per high-power field and was nitrite positive. Preliminary on the urine culture is gram-negative odin. Urine culture from admission on 10/30/2018 had mixed gram- positive and gram-negative organisms. All events of the past 24 hours of been reviewed. T-max is 100.8 ?F. Heart rate increases with fever to the low 100s. Blood pressure is within normal limits. She is 96% on 3 L now. Today she is confused and having difficulty answering questions. She lives at home and a couple who lives downstairs gets her up every morning and takes her to the toilet. They help her to shower and perform ADLs. She has a sit to stand at home to assist her in getting out of bed. She has a motorized wheelchair. The suprapubic catheter was inserted 10 years ago because she was unable to perform self-catheterization. She takes Macrodantin daily to help prevent urinary tract infections. She has obstructive sleep apnea and takes several sedating medications including Benadryl, gabapentin 1800 mg daily, [place], baclofen, Keppra(although Dr. Kitto's admit note from the last admission states she does not have a seizure disorder....D/W Dr. Robertson). She list both Effexor and Cymbalta as medications she is currently taking. Echocardiogram 11/24/1917 showed a 75% ejection fraction with stage I diastolic dysfunction. The left atrium was moderately enlarged. Could not estimate the RV systolic pressure due to an inadequate jet. She was treated with 1 dose Rocephin in the ER at the last visit and started on Zosyn at admission. She was not discharged on antibiotics because the urine culture had mixed gram positives and gram negatives. When she got home she had Cipro and so she took 5 doses. Objective: PHYSICAL EXAM: GENERAL: somewhat lethargic but able to answer questions.....although her responses are delayed and she is having a difficult time remembering things, oriented X 3, Cooperative, NAD ORAL: dry mucosa, no mucosal lesions NECK: No JVD, supple, trachea midline LUNGS: CTA, symmetric chest expansion, breath sounds are diminished throughout, no rales, no wheezes, no conversational dyspnea and no accessory muscle use HEART: RRR, Normal S1 and S2, no rub, no gallop ABDOMEN: soft, NT, ND, BS present, no guarding with palpation, obese EXTREMITIES: edema, no cyanosis, no calf tenderness SKIN: No rashes, no breakdown NEUROLOGIC: no focal neurologic deficits PSYCH: appropriate, normal affect, pleasant - Physical Exam Vital Signs Temp Pulse Resp BP Pulse Ox 100.2 F H 103 H 18 131/57 H 96 11/12/18 16:12 11/12/18 16:12 11/12/18 16:12 11/12/18 16:12 11/12/18 16:12 Oxygen Flow Rate (L/min) 3 Oxygen Delivery Method Nasal Cannula Weight: 352 lb 11.834 oz Body Mass Index (BMI) 56.9 Intake and Output for Last 24 Hours 11/10/18 11/11/18 11/12/18 23:59 23:59 23:59 Intake Total 3041 / 3041 Output Total 3625 / 3625 Balance -584 / -584 Microbiology Past 72 Hours 11/11/18 19:57 Urine Culture - Preliminary Urine Catheter - Henry Gram negative odin Laboratory Tests Past 24 Hrs 11/11/18 11/11/18 11/11/18 18:35 18:35 18:35 WBC 17.3 H RBC 3.87 L Hgb 11.2 L Hct 36.0 L MCV 93.0 MCH 28.9 MCHC 31.1 L RDW 17.4 H RDW Differential 58.3 H Plt Count 355 MPV 9.8 Immature Gran % (Auto) 0.400 Neut % (Auto) 84.2 H Lymph % (Auto) 5.7 L [place] % (Auto) 8.7 Eos % (Auto) 0.8 Baso % (Auto) 0.2 Absolute Neuts (auto) 14.6 H Absolute Lymphs (auto) 0.98 Total Counted Not Reportable PT INR APTT Sodium 133 L Potassium 4.9 Chloride 96 L Carbon Dioxide 31.0 Anion Gap 6 BUN 22 H Creatinine 1.63 H Estim Creat Clear Calc 30.34 Est GFR (MDRD) Af Amer 40 L Est GFR (MDRD) Non-Af 33 L BUN/Creatinine Ratio 13.5 Glucose 142 H Lactic Acid 3.1 H Calcium 8.9 Total Bilirubin 0.50 AST 17 ALT 17 Alkaline Phosphatase 58 Troponin I < 0.015 Total Protein 8.5 H Albumin 3.1 L Globulin 5.4 H Albumin/Globulin Ratio 0.6 L Urine Color Urine Clarity Urine pH Ur Specific [place] Urine Protein Urine Glucose (UA) Urine Ketones Urine Occult Blood Urine Nitrite Urine Bilirubin Urine Urobilinogen Ur Leukocyte Esterase Urine RBC Urine WBC Ur Squamous Epith Cells Urine Bacteria Urine Mucus 11/11/18 11/11/18 11/11/18 19:25 19:57 22:55 WBC RBC Hgb Hct MCV MCH MCHC RDW RDW Differential Plt Count MPV Immature Gran % (Auto) Neut % (Auto) Lymph % (Auto) [place] % (Auto) Eos % (Auto) Baso % (Auto) Absolute Neuts (auto) Absolute Lymphs (auto) Total Counted PT 14.8 INR 1.2 APTT 32.9 Sodium Potassium Chloride Carbon Dioxide Anion Gap BUN Creatinine Estim Creat Clear Calc Est GFR (MDRD) Af Amer Est GFR (MDRD) Non-Af BUN/Creatinine Ratio Glucose Lactic Acid 1.8 Calcium Total Bilirubin AST ALT Alkaline Phosphatase Troponin I Total Protein Albumin Globulin Albumin/Globulin Ratio Urine Color Yellow Urine Clarity Cloudy Urine pH 6.5 Ur Specific [place] 1.010 Urine Protein 100 H Urine Glucose (UA) Normal Urine Ketones Negative Urine Occult Blood 250 H Urine Nitrite Positive H Urine Bilirubin Negative Urine Urobilinogen Normal Ur Leukocyte Esterase 500 H Urine RBC 0 SEEN Urine WBC >100 SEEN Ur Squamous Epith Cells 0 SEEN Urine Bacteria 0 SEEN Urine Mucus 0 SEEN 11/12/18 11/12/18 05:35 05:35 WBC 11.0 RBC 3.35 L Hgb 9.7 L Hct 31.6 L MCV 94.3 MCH 29.0 MCHC 30.7 L RDW 17.3 H RDW Differential 57.3 H Plt Count 288 MPV 9.8 Immature Gran % (Auto) 0.200 Neut % (Auto) 79.0 H Lymph % (Auto) 10.0 L [place] % (Auto) 9.4 Eos % (Auto) 1.1 Baso % (Auto) 0.3 Absolute Neuts (auto) 8.7 H Absolute Lymphs (auto) 1.10 Total Counted Not Reportable PT INR APTT Sodium 138 Potassium 3.7 Chloride 101 Carbon Dioxide 29.0 Anion Gap 8 BUN 20 H Creatinine 1.29 H Estim Creat Clear Calc 36.90 Est GFR (MDRD) Af Amer 52 L Est GFR (MDRD) Non-Af 43 L BUN/Creatinine Ratio 15.5 Glucose 160 H Lactic Acid Calcium 8.6 Total Bilirubin AST ALT Alkaline Phosphatase Troponin I Total Protein Albumin Globulin Albumin/Globulin Ratio Urine Color Urine Clarity Urine pH Ur Specific [place] Urine Protein Urine Glucose (UA) Urine Ketones Urine Occult Blood Urine Nitrite Urine Bilirubin Urine Urobilinogen Ur Leukocyte Esterase Urine RBC Urine WBC Ur Squamous Epith Cells Urine Bacteria Urine Mucus POC Glucose 11/12/18 11/12/18 11/12/18 16:14 11:46 06:51 POC Glucose 158 H 184 H 156 H 11/11/18 23:17 POC Glucose 120 H Medical Necessity - Tobacco Use Smoking Status: Never smoker Assessment/Plan All Active Problems Sepsis (Acute) MICHAELLE (acute kidney injury) (Acute) Shortness of breath (Acute) Tachycardia (Acute) Severe sepsis (Acute) Acute cystitis (Acute) Suprapubic catheter dysfunction (Acute) UTI (urinary tract infection) (Acute) Impressions 1. Complicated cystitis cystitis 2. Hyponatremia 3. Acute renal failure 4. Severe sepsis 5. Diabetes mellitus type 2 6. Super morbid obesity 7. Chronic suprapubic catheter 8. Hypertension 9. VITA on BiPAP DC Cymbalta and continue Effexor Continue Rocephin and await the results of the urine culture Hold Eriberto today Will discuss with her when she is more alert and able to respond to questions IF she wears CPAP or BIPAP at night Code Visit Inpatient E&M: 52709 Subs Hosp L2
[2018-11-12 20:08] LABS: Hemoglobin A1c 6.3 % (4.2-6.3)
[2018-11-12] MEDS: Ceftriaxone 1 GM/50 ML BAG IV (22:42)
[2018-11-12] MEDS: levETIRAcetam 500 MG Tablet PO (22:42)
[2018-11-12] MEDS: 0.9% NaCl Peripheral Flush Adult/Peds IV (22:42)
[2018-11-12] MEDS: Pravastatin 20 MG Tablet PO (22:44)
[2018-11-12 23:30] LABS: Bedside Glucose 114 mg/dL (70-110)
[2018-11-13] VITALS (12 sets, daily range): BP systolic 95–138; BP diastolic 45–62; PULSE 82–91; RESP 16–18; TEMP 36.2–36.6; O2SAT 94–99
[2018-11-13] MEDS: Heparin Injection (Vial) 5,000 UNIT/ML VIAL 5000 UNIT SC ×3 (05:18→21:27)
[2018-11-13] MEDS: Menthol/Lanolin/Calamine/Znox 113 GM Tube 1 APPLIC TOPICAL ×3 (05:18→21:13)
[2018-11-13] MEDS: Gabapentin 600 MG Tablet PO ×3 (05:19→21:29)
[2018-11-13 06:26] LABS: Absolute Lymphocyte Count 1.51 X10^3/ul (0.83-4.51); Absolute Neutrophil Count 5.7 X10^3/uL (2.0-7.7); Basophil# 0.03 X10^3/uL; Basophil% 0.3 % (0-1); Eosinophil# 0.27 X10^3/uL; Eosinophils% 3.1 % (0-5); Hemoglobin 9.4 g/dl (12.0-15.0); Lymphocyte # 1.51 X10^3/ul (4.0); Lymphocyte % 17.3 % (19-41); Mean Corp Hgb Conc 30.3 g/gl (32-36); Mean Corpuscular Hgb 28.3 pg (27.0-32.0); Mean Corpuscular Volume 93.4 fL (81-99); Mean Platelet Vol. 9.5 fl (6.2-12.0); Monocyte# 1.24 X10^3/uL; Monocyte% 14.2 % (0-10); Neutrophil # 5.65 X10^3/uL (2.7-7.7); Neutrophil % 64.8 % (47-70); Platelet Count 256 K/mm3 (150-450); RBC Distribution Width CV 17.4 % (11.6-14.6); RBC Distribution Width SD 59.3 fl (35.1-43.9); Red Blood Count 3.32 M/mm3 (4.2-5.4); White Blood Count 8.7 K/mm3 (4.4-11.0)
[2018-11-13 06:54] LABS: ALB/GLOB Ratio 0.5 RATIO (0.9-2.4); AST(SGOT) 16 U/L (15-37); Alanine Aminotransfer ALT/SGPT 12 U/L (13-56); Albumin, Serum 2.3 g/dL (3.2-5.0); Alkaline Phosphatase 52 U/L (45-117); Anion Gap 8 (5-15); BUN 20 mg/dL (7-18); BUN/Creat Ratio 18.3 RATIO (10-20); Calcium,Total 8.6 mg/dL (8.5-10.1); Chloride 99 mmol/L (98-107); Creatinine, Serum 1.09 mg/dL (0.55-1.02); EST Glomerular Filtration Rate 52 mL/min (>60); Est Glom Filt Rate - Afr Amer 63 mL/min (>60); Estimated Creatinine Clearance 43.67 ml/min; Globulin 4.7 g/dL (2.2-4.2); Glucose 122 mg/dL (74-106); Phosphorus 3.2 mg/dL (2.5-4.9); Potassium 3.7 mmol/L (3.5-5.1); Sodium Level 137 mmol/L (136-145)
[2018-11-13 06:55] LABS: Bedside Glucose 128 mg/dL (70-110)
[2018-11-13 07:02] LABS: POSITIVE COUNT NO; POSITIVE DIFFERENTIAL NO; POSITIVE MORPHOLOGY NO
[2018-11-13] MEDS: Pantoprazole Sodium 40 MG Tablet PO (10:30)
[2018-11-13] MEDS: Famotidine 20 MG Tablet PO ×2 (10:30→21:29)
[2018-11-13] MEDS: Mupirocin Ointment 22gm Tube 1 APPLIC TOPICAL ×2 (10:30→21:13)
[2018-11-13] MEDS: Multivitamin (Healthy Eyes) Capsule 1 CAP PO ×3 (10:30→17:08)
[2018-11-13] MEDS: Vitamin E 400 UNITS Capsule PO ×2 (10:30→17:08)
[2018-11-13] MEDS: Venlafaxine XR 150 MG Capsule PO ×2 (10:30→21:29)
[2018-11-13] MEDS: Tolterodine Tartrate 2 MG CAP.SA PO (10:30)
[2018-11-13] MEDS: Cyanocobalamin 500 MCG Tablet 1000 MCG PO (10:32)
[2018-11-13] MEDS: Fluticasone 0.05% 1 SPRAY NASAL.SRY 2 SPRAY NASAL (10:32)
[2018-11-13] MEDS: Insulin Lispro 100 UNIT/ML INSULN.PEN SQ ×2 (12:02→21:27)
[2018-11-13 12:35] LABS: Bedside Glucose 159 mg/dL (70-110)
--- NOTE | 2018-11-13 14:55 | PCM.PROGNOTE ---
Patient Problems: Active and Suspected Problems Severe sepsis (Acute) Acute cystitis (Acute) Subjective: Day #3 Rocephin All events of the past 24 hours of been reviewed. T-max is 100.8 ?F. Blood pressures are on the low side today and the current blood pressure is 95/45. Heart rate has improved since admission and is in the 80s-90 range. She is 96% saturated on a 2 L nasal cannula. White blood cell count today is 8.7 with a normal differential. Hemoglobin is 9.4, down from 11.2 at admission following hydration and platelets are within normal limits. Creatinine is 1.09 today, down from 1.63 at admission. Microbiology: Urine culture had greater than 100,000 pseudomonas aeruginosa which is multidrug-resistant. It is resistant to cefepime, ceftazidime, fluoroquinolones, gentamicin, tobramycin. Additional sensitivities are to follow. Blood cultures have no growth to date. She feels much better today. Eating well and she is very alert and answering questions appropriately. NAD. Objective: GENERAL: oriented X 3, Cooperative, NAD, very alert today and promptly answers questions ORAL: dry mucosa, no mucosal lesions NECK: No JVD, supple, trachea midline LUNGS: CTA, symmetric chest expansion, breath sounds are diminished throughout, no rales, no wheezes, no conversational dyspnea and no accessory muscle use HEART: RRR, Normal S1 and S2, no rub, no gallop ABDOMEN: soft, NT, ND, BS present, no guarding with palpation, obese EXTREMITIES: edema, no cyanosis, no calf tenderness SKIN: No rashes, no breakdown NEUROLOGIC: no focal neurologic deficits PSYCH: appropriate, normal affect, pleasant - Physical Exam Vital Signs Temp Pulse Resp BP Pulse Ox 97.2 F L 90 16 95/45 L 96 11/13/18 10:28 11/13/18 10:58 11/13/18 10:28 11/13/18 10:31 11/13/18 10:28 Oxygen Flow Rate (L/min) 2 Oxygen Delivery Method Nasal Cannula Weight: 352 lb 11.834 oz Body Mass Index (BMI) 56.9 Intake and Output for Last 24 Hours 11/11/18 11/12/18 11/13/18 23:59 23:59 23:59 Intake Total 3041 / 3041 1453 / 1453 Output Total 3625 / 3625 1850 / 1850 Balance -584 / -584 -397 / -397 Microbiology Past 72 Hours 11/11/18 19:57 Urine Culture - Preliminary Urine Catheter - Henry Pseudomonas aeroginosa Laboratory Tests Past 24 Hrs 11/12/18 11/13/18 11/13/18 05:35 05:50 05:50 WBC 8.7 RBC 3.32 L Hgb 9.4 L Hct 31.0 L MCV 93.4 MCH 28.3 MCHC 30.3 L RDW 17.4 H RDW Differential 59.3 H Plt Count 256 MPV 9.5 Immature Gran % (Auto) 0.300 Neut % (Auto) 64.8 Lymph % (Auto) 17.3 L [place] % (Auto) 14.2 H Eos % (Auto) 3.1 Baso % (Auto) 0.3 Absolute Neuts (auto) 5.7 Absolute Lymphs (auto) 1.51 Total Counted Not Reportable Sodium 137 Potassium 3.7 Chloride 99 Carbon Dioxide 30.0 Anion Gap 8 BUN 20 H Creatinine 1.09 H Estim Creat Clear Calc 43.67 Est GFR (MDRD) Af Amer 63 Est GFR (MDRD) Non-Af 52 L BUN/Creatinine Ratio 18.3 Glucose 122 H Hemoglobin A1c 6.3 Calcium 8.6 Phosphorus 3.2 Magnesium 2.0 Total Bilirubin 0.50 AST 16 ALT 12 L Alkaline Phosphatase 52 Total Protein 7.0 Albumin 2.3 L Globulin 4.7 H Albumin/Globulin Ratio 0.5 L POC Glucose 11/13/18 11/13/18 11/12/18 11:57 06:46 22:52 POC Glucose 159 H 128 H 114 H 11/12/18 16:14 POC Glucose 158 H Medical Necessity - Tobacco Use Smoking Status: Never smoker Assessment/Plan All Active Problems Sepsis (Acute) MICHAELLE (acute kidney injury) (Acute) Shortness of breath (Acute) Tachycardia (Acute) Severe sepsis (Acute) Acute cystitis (Acute) Suprapubic catheter dysfunction (Acute) UTI (urinary tract infection) (Acute) Impressions 1. Complicated cystitis 2. Hyponatremia-resolved with holding Lasix and hydrating. 3. Acute renal failure -improved with hydration 4. Severe sepsis 5. Diabetes mellitus type 2 6. Super morbid obesity 7. Chronic suprapubic catheter 8. Hypertension 9. VITA on BiPAP 10. toxic encephalopathy due to infection.....likely the ARF contributes as well Fevers have resolved and the white blood cell count is now within normal limits With an unremarkable differential. Encephalopathy has resolved. This has all improved but, she is growing pseudomonas aeruginosa in the urine which is multidrug-resistant and especially resistant to Rocephin which is the antibiotic that she was placed on at admission. It seems she likely had some sort of infection at admission but it is not the pseudomonas aeruginosa in the urine that because of the fever and elevated white blood cell count because the bacteria is resistant to Rocephin. She denies any cough and chest x-ray was unremarkable so I do not feel that she has a viral URI. Influenza swab is negative and the respiratory panel is pending. I suspect that she is either colonized with pseudomonas aeruginosa or this is contaminant. Continue Rocephin for now and consult Dr. Farah in the a.m. Await the results of the respiratory panel Restart Lasix 40 mg daily in the a.m. Code Visit Inpatient E&M: 26130 Subs Hosp L2
[2018-11-13 17:16] LABS: Bedside Glucose 145 mg/dL (70-110)
[2018-11-13] MEDS: Nystatin Powder 15gm Bottle 1 APPLIC TOPICAL (21:22)
[2018-11-13] MEDS: 0.9% NaCl Peripheral Flush Adult/Peds IV (21:27)
[2018-11-13] MEDS: Ceftriaxone 1 GM/50 ML BAG IV (21:27)
[2018-11-13] MEDS: Pravastatin 20 MG Tablet PO (21:29)
[2018-11-13] MEDS: levETIRAcetam 500 MG Tablet PO (21:29)
[2018-11-13] MEDS: Acetaminophen 325 MG Tablet 650 MG PO (21:34)
[2018-11-13 21:46] LABS: Bedside Glucose 169 mg/dL (70-110)
[2018-11-14] VITALS (12 sets, daily range): BP systolic 132–150; BP diastolic 51–81; PULSE 81–94; RESP 16–20; TEMP 36.8; O2SAT 93–98
[2018-11-14] MEDS: Mag Hydrox/Al Hydrox/Simeth 30 ML UDC PO (05:27)
[2018-11-14] MEDS: Menthol/Lanolin/Calamine/Znox 113 GM Tube 1 APPLIC TOPICAL ×3 (05:28→23:23)
[2018-11-14] MEDS: Heparin Injection (Vial) 5,000 UNIT/ML VIAL 5000 UNIT SC ×3 (05:28→23:24)
[2018-11-14] MEDS: Gabapentin 600 MG Tablet PO ×3 (06:50→23:43)
[2018-11-14 07:05] LABS: Bedside Glucose 179 mg/dL (70-110)
[2018-11-14] MEDS: Famotidine 20 MG Tablet PO ×2 (09:34→23:43)
[2018-11-14] MEDS: Cyanocobalamin 500 MCG Tablet 1000 MCG PO (09:34)
[2018-11-14] MEDS: Multivitamin (Healthy Eyes) Capsule 1 CAP PO ×3 (09:34→17:13)
[2018-11-14] MEDS: Fluticasone 0.05% 1 SPRAY NASAL.SRY 2 SPRAY NASAL (09:34)
[2018-11-14] MEDS: Vitamin E 400 UNITS Capsule PO ×2 (09:35→17:13)
[2018-11-14] MEDS: Furosemide 40 MG Tablet PO (09:35)
[2018-11-14] MEDS: Venlafaxine XR 150 MG Capsule PO ×2 (09:35→23:43)
[2018-11-14] MEDS: Mupirocin Ointment 22gm Tube 1 APPLIC TOPICAL ×2 (09:35→23:23)
[2018-11-14] MEDS: Tolterodine Tartrate 2 MG CAP.SA PO (09:35)
[2018-11-14] MEDS: Insulin Lispro 100 UNIT/ML INSULN.PEN SQ (09:36)
[2018-11-14] MEDS: Metoprolol(XL)Succ 25 MG Tablet PO (09:36)
[2018-11-14] MEDS: Pantoprazole Sodium 40 MG Tablet PO (09:36)
--- NOTE | 2018-11-14 09:56 | CON.PCM_ITS ---
Reason for Consult: Positive urine culture and concern of sepsis Consulted by: Dr. Triana History of Present Illness: The patient is a 73 year old F [] This is a 73-year-old white female with multiple comorbidities including morbid obesity, diabetes mellitus, obstructive sleep apnea, long-standing history of a suprapubic catheter placement who was recently hospitalized in October here at [facility] discharge a little over a week ago. Patient was readmitted because of generalized weakness and unable to take care of herself. Patient did have a leukocytosis and some intermittent fevers initially and was placed on ceftriaxone. She is currently more alert conversive and overall hemodynamically and clinically stable no further fevers. Her admission blood cultures remain negative. Her urine culture from her suprapubic catheter is growing pseudomonas aeruginosa. Denies any gastrointestinal distress at this time no diarrhea. No nausea vomiting. No significant cardiopulmonary distress. History is obtained through reviewing the chart as well as talking to the patient and talking to the hospitalist. - Medical History Past Medical History (Chronic Problems): Chronic Problems Debility (Chronic) Depression (Chronic) VITA (obstructive sleep apnea) (Chronic) Allergies/Adverse Reactions: Allergies adhesive tape Allergy (Verified 11/11/18 21:47) blisters Influenza Virus Vaccines Allergy (Verified 11/11/18 21:47) shortness of breath/severe wheezing iron Allergy (Verified 11/11/18 21:47) from IV form chest pressure and heart palpitations Sulfa (Sulfonamide Antibiotics) Allergy (Verified 11/11/18 21:47) Shortness of breath bactrim does not work for her-per pcp paperwork meloxicam [From Mobic] Adverse Reaction (Verified 11/11/18 21:47) gi upset seasonal allergies Allergy (Uncoded 11/11/18 21:47) Other Home Medications: Ambulatory Orders Medication Instructions Recorded DiphenhydrAMINE [Benadryl] 25 mg PO BID PRN PRN 09/30/13 Furosemide [Lasix] 20 mg PO TID 09/30/13 Pantoprazole Sodium [Protonix] 40 mg PO DAILY 09/30/13 Pravastatin [Pravachol] 20 mg PO QHS 09/30/13 Albuterol Inhaler [Ventolin Hfa] 2 puff INHALATION Q4H PRN PRN 10/30/18 Baclofen 10 mg PO TID PRN PRN 10/30/18 Cholecalciferol (VIT D3) [Vitamin 1,000 unit PO DAILY 10/30/18 D3] Ciprofloxacin [Cipro] 500 mg PO BID PRN 10/30/18 Cranberry Conc/Ascorbic Acid 1 each PO BID 10/30/18 [Cranberry Concentrate Softgel] Cyanocobalamin [Vitamin B12] 1,000 mcg PO DAILY@0800 10/30/18 Diphenoxylate/Atrop [Lomotil] 1 tablet PO 4X/DAY PRN PRN 10/30/18 Duloxetine Hcl [Cymbalta] 30 mg PO DAILY 10/30/18 Fluticasone 0.05% [Flonase Nasal 2 spray NASAL DAILY 10/30/18 [place]] Gabapentin [Neurontin] 600 mg PO TID 10/30/18 Guaifenesin [Mucinex] 1,200 mg PO BID PRN 10/30/18 Hydrocodone Bitart/Apap 5-325 1 tablet PO Q6H PRN PRN 10/30/18 [[place] 5/325] Lisinopril [Zestril] 10 mg PO DAILY 10/30/18 Metformin HCl [Glucophage] 500 mg PO BID 10/30/18 Metoprolol(XL)Succ [Toprol Xl 25 mg PO DAILY 10/30/18 (Beta [place])] Multivitamins,Ther W-Minerals 1 tablet PO 4X/DAY 10/30/18 [Multivitamin With Minerals] Mupirocin [Bactroban] 1 applicatio TOPICAL BID 10/30/18 Nitrofurantoin Macrocrystals 100 mg PO DAILY 10/30/18 [Macrobid] Nystatin Powder [Mycostatin Powder] 1 applicatio TOPICAL BID PRN PRN 10/30/18 Oxybutynin Chloride [Ditropan Xl] 15 mg PO DAILY 10/30/18 Potassium (Otc) [Potassium OTC] 99 mg PO DAILY 10/30/18 Ranitidine [Zantac] 150 mg PO BID 10/30/18 Triamcinolone 0.1% Dental Pst 1 applicatio TOPICAL 4X/DAY 10/30/18 [Kenalog Dental Paste] Venlafaxine XR [Effexor Xr] 150 mg PO BID 10/30/18 Vitamin E 400 units PO BID 10/30/18 levETIRAcetam tablet [Keppra 500 mg PO QHS 10/30/18 tablet] Vital Signs Temp Pulse Resp BP Pulse Ox 98.2 F 94 16 135/67 H 97 11/14/18 09:12 11/14/18 09:36 11/14/18 09:12 11/14/18 09:36 11/14/18 09:12 Oxygen Flow Rate (L/min) 2 Oxygen Delivery Method Nasal Cannula Weight: 160 kg Body Mass Index (BMI) 56.9 Microbiology Past 72 Hours 11/11/18 19:57 Urine Culture - Final Urine Catheter - Henry Pseudomonas aeroginosa 11/11/18 23:45 Blood Culture - Preliminary Blood Culture (Wb) - Anticubital Left No growth in 48 hours. 11/11/18 18:35 Blood Culture - Preliminary Blood Culture (Wb) - Left Wrist No growth in 48 hours. 11/13/18 16:10 Influenza Types A,B Direct FA (WENDI) - Final Mucosa - Nose Laboratory Tests Past 24 Hrs 11/13/18 16:03 Lactic Acid 1.0 - Other Studies Radiology: [] Other Studies: [] Route of nutrition/ use of supplements: [] Nutritional Intake: [] IV Site: [] Henry Catheter: [] Patient is alert responsive does not appear toxic lungs are clear heart exam S1- S2 abdomen is obese but soft suprapubic catheter in place no peripheral skin lesions noted. Chest x-ray results reviewed as well as her laboratory studies reviewed - Assessment/Plan Antibiotics: [] Assessment/Plan: [] Active and Suspected Problems Severe sepsis (Acute) Acute cystitis (Acute) Clinically I doubt the patient's urine culture is significant especially the fact she has a suprapubic catheter in place. No clinical signs of active infection and her blood cultures remain negative. Okay to discontinue ceftriaxone at this point.
[2018-11-14 12:10] LABS: Bedside Glucose 116 mg/dL (70-110)
--- NOTE | 2018-11-14 13:14 | DCINST_ITS ---
- Discharge Diagnoses Current Active Problems: Current Active and Chronic Problems Severe sepsis (Acute) Acute cystitis (Acute) You will use the following diet at home:: Calorie/Carbohydrate Controlled (specify 1200, 1400, etc) Your food should be the consistency of: Regular Your liquids should be the consistency of: Regular/Thin Discharge Activity: Return to Normal Activity Additional Instructions: 1. You did not have a urinary tract infection. People with chronic catheters get colonized with bacteria. This means that the bacteria lives in the bladder and the tubing BUT, it does not cause infection with fevers, chills, nausea, elevated white blood cell count. The etiology of the fever you had at admisison is probably a virus that we can not test for. The fever and the high white blood cell count resolved in < than 48 hours and you were on an antibiotic that did not cover the bacteria growing in the urine. the bacteria that did grow in the urine is multi drug resistant......this happens when you are frequently on Antibiotics and joel when you do not take them for a full course. You should not be taking as needed Cipro at home and the Macrodantin is not effective. Allergies/Adverse Reactions: Allergies adhesive tape Allergy (Verified 11/11/18 21:47) blisters Influenza Virus Vaccines Allergy (Verified 11/11/18 21:47) shortness of breath/severe wheezing iron Allergy (Verified 11/11/18 21:47) from IV form chest pressure and heart palpitations Sulfa (Sulfonamide Antibiotics) Allergy (Verified 11/11/18 21:47) Shortness of breath bactrim does not work for her-per pcp paperwork meloxicam [From Mobic] Adverse Reaction (Verified 11/11/18 21:47) gi upset seasonal allergies Allergy (Uncoded 11/11/18 21:47) Other Medications to take at Discharge DiphenhydrAMINE [Benadryl] 25 mg PO BID PRN PRN 09/30/13 Furosemide [Lasix] 20 mg PO TID 09/30/13 Pantoprazole Sodium [Protonix] 40 mg PO DAILY 09/30/13 Pravastatin [Pravachol] 20 mg PO QHS 09/30/13 Albuterol Inhaler [Ventolin Hfa] 2 puff INHALATION Q4H PRN PRN 10/30/18 Baclofen 10 mg PO TID PRN PRN 10/30/18 Cholecalciferol (VIT D3) [Vitamin D3] 1,000 unit PO DAILY 10/30/18 Cranberry Conc/Ascorbic Acid [Cranberry Concentrate Softgel] 1 each PO BID 10/30/18 Cyanocobalamin [Vitamin B12] 1,000 mcg PO DAILY@0800 10/30/18 Diphenoxylate/Atrop [Lomotil] 1 tablet PO 4X/DAY PRN PRN 10/30/18 Duloxetine Hcl [Cymbalta] 30 mg PO DAILY 10/30/18 Fluticasone 0.05% [Flonase Nasal [place]] 2 spray NASAL DAILY 10/30/18 Gabapentin [Neurontin] 600 mg PO TID 10/30/18 Guaifenesin [Mucinex] 1,200 mg PO BID PRN 10/30/18 Hydrocodone Bitart/Apap 5-325 [[place] 5/325] 1 tablet PO Q6H PRN PRN 10/30/18 Lisinopril [Zestril] 10 mg PO DAILY 10/30/18 Metformin HCl [Glucophage] 500 mg PO BID 10/30/18 Metoprolol(XL)Succ [Toprol Xl (Beta [place])] 25 mg PO DAILY 10/30/18 Multivitamins,Ther W-Minerals [Multivitamin With Minerals] 1 tablet PO 4X/DAY 10/30/18 Mupirocin [Bactroban] 1 applicatio TOPICAL BID 10/30/18 Nitrofurantoin Macrocrystals [Macrobid] 100 mg PO DAILY 10/30/18 Nystatin Powder [Mycostatin Powder] 1 applicatio TOPICAL BID PRN PRN 10/30/18 Oxybutynin Chloride [Ditropan Xl] 15 mg PO DAILY 10/30/18 Potassium (Otc) [Potassium OTC] 99 mg PO DAILY 10/30/18 Ranitidine [Zantac] 150 mg PO BID 10/30/18 Triamcinolone 0.1% Dental Pst [Kenalog Dental Paste] 1 applicatio TOPICAL 4X/DAY 10/30/18 Venlafaxine XR [Effexor Xr] 150 mg PO BID 10/30/18 Vitamin E 400 units PO BID 10/30/18 levETIRAcetam tablet [Keppra tablet] 500 mg PO QHS 10/30/18 Primary Care Physician: Noy Chakraborty MD [Primary Care Provider] - Please follow up with your Primary Care Physician in: 1-2 weeks Test Results: Test results from this visit will be discussed in further detail at your follow- up appointment, if applicable. Proposed Discharge Date: 11/14/18
--- NOTE | 2018-11-14 13:15 | PCM.DC.SUM ---
Discharge Date and Diagnosis - Problem List Patient Problems: Active and Suspected Problems Dehydration (Acute) Date of Admission: 11/11/18 Date of Discharge: 11/14/18 - Primary Discharge Diagnosis Active and Suspected Problems severe sepsis - ruled out Complicated Cystitis - ruled out Acute kidney injury secondary to dehydration Dehydration (Acute) Hyponatremia Metabolic encephalopathy - Secondary Discharge Diagnosis Chronic Problems Debility (Chronic) Depression (Chronic) VITA (obstructive sleep apnea) (Chronic) on BiPAP Normochromic normocytic anemia Morbid obesity Diabetes mellitus type 2 Hospital Course and Treatment Imaging Results: Clinical Impression(s) from Imaging Studies Chest X-Ray 11/11/18 19:00 IMPRESSION: Stable appearance of the chest with no new or acute finding. Electronically Signed: Dejon Luna MD at 19:30 EST , Service support , Microbiology 11/13/18 16:10 Mucosa - Nose Respiratory Panel (PCR) - Final 11/11/18 19:57 Urine Catheter - Henry Urine Culture - Final Pseudomonas aeroginosa 11/11/18 23:45 Blood Culture (Wb) - Anticubital Left Blood Culture - Preliminary No growth in 48 hours. 11/11/18 18:35 Blood Culture (Wb) - Left Wrist Blood Culture - Preliminary No growth in 48 hours. 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 Colby Farah-infectious diseases Operations: None Procedures: None Summary of Care Provided: The patient is a 73-year-old female with a past medical history of depression, morbid obesity, congestive heart failure, anxiety, asthma, diabetes mellitus, chronic suprapubic catheter and HTN who presented to the ED at [facility] on 11/11/2018 with complaints of generalized fatigue and a fall at home. She was recently an inpatient at [facility] admitted on 10/30/2018 for sepsis secondary to acute complicated cystitis and discharged on 11/02/2018. Urine culture at that time grew mixed gram positives and negatives. She was not sent home on an antibiotic. Vital signs at presentation to the emergency room were temperature 100 ?F, pulse rate 102, blood pressure 113/72, respiratory rate 18 and she was 93% saturated on room air. Lab at admission showed an elevated white blood cell count at 17.3 with a left shift. Hemoglobin was 11.2 and was 9.9 at discharge from the hospital on 11/02/2018. Creatinine was elevated at 1.63, up from 1.21 at discharge from the hospital on 11/02/2018. In May of this year her creatinine was 0.8. Chest x-ray showed no infiltrates, pleural effusions or significant pulmonary vascular congestion. UA showed greater than 100 WBCs per high-power field and was nitrite positive. She was admitted to the hospital with a dx of severe sepsis due to complicated UTI. She was started on Rocephin. On PE at admission she was confused and very slow to answer questions. We felt she had a metabolic encephalopathy. She was hydrated and the next day she was much improved, alert and oriented x 3 and back to baseline. Fever and leukocytosis resolved within 48 hours. The urine culture grew pseudomonas aeruginosa which was resistant to aminoglycosides, cefepime, ceftazidime, fluoroquinolones and meropenem. She improved and the leukocytosis and fever resolved while on an antibiotic that did not cover the bacteria in the urine. She was seen in consultation by Dr. Farah on 11/14/2018 and he felt that she did not have cystitis and recommended discontinuation of Rocephin. I recommended to her that she did not take ciprofloxacin p.o. as needed at home. Respiratory panel and Influenza swab were both negative. The etiology of the fever at admission is unknown. GENERAL: oriented X 3, Cooperative, NAD, very alert today and promptly answers questions ORAL: dry mucosa, no mucosal lesions NECK: No JVD, supple, trachea midline LUNGS: CTA, symmetric chest expansion, breath sounds are diminished throughout, no rales, no wheezes, no conversational dyspnea and no accessory muscle use HEART: RRR, Normal S1 and S2, no rub, no gallop ABDOMEN: soft, NT, ND, BS present, no guarding with palpation, obese EXTREMITIES: edema, no cyanosis, no calf tenderness SKIN: No rashes, no breakdown NEUROLOGIC: no focal neurologic deficits PSYCH: appropriate, normal affect, pleasant This note was generated with [employer] dictation software. It may contain incorrect words, spelling, and punctuation that were not noted in checking the note before signing. Patient Problems: Active and Suspected Problems Dehydration (Acute) - Physical Exam Vital Signs Temp Pulse Resp BP Pulse Ox 98.2 F 86 16 135/67 H 97 11/14/18 09:12 11/14/18 11:00 11/14/18 09:12 11/14/18 09:36 11/14/18 09:12 Oxygen Flow Rate (L/min) 2 Oxygen Delivery Method Nasal Cannula Weight: 352 lb 11.834 oz Body Mass Index (BMI) 56.9 Intake and Output for Last 24 Hours 11/12/18 11/13/18 11/14/18 23:59 23:59 23:59 Intake Total 3041 / 3041 2615 / 2615 1100 / 1100 Output Total 3625 / 3625 3300 / 3300 2750 / 2750 Balance -584 / -584 -685 / -685 -1650 / -1650 Microbiology Past 72 Hours 11/13/18 16:10 Respiratory Panel (PCR) - Final Mucosa - Nose 11/11/18 19:57 Urine Culture - Final Urine Catheter - Henry Pseudomonas aeroginosa 11/11/18 23:45 Blood Culture - Preliminary Blood Culture (Wb) - Anticubital Left No growth in 48 hours. 11/11/18 18:35 Blood Culture - Preliminary Blood Culture (Wb) - Left Wrist No growth in 48 hours. 11/13/18 16:10 Influenza Types A,B Direct FA (WENDI) - Final Mucosa - Nose Laboratory Tests Past 24 Hrs 11/13/18 16:03 Lactic Acid 1.0 POC Glucose 11/14/18 11/14/18 11/13/18 12:02 06:52 21:26 POC Glucose 116 H 179 H 169 H 11/13/18 17:04 POC Glucose 145 H Discharge Activity: Return to Normal Activity Home Medications: Medications to take at Discharge DiphenhydrAMINE [Benadryl] 25 mg PO BID PRN PRN 09/30/13 Furosemide [Lasix] 20 mg PO TID 09/30/13 Pantoprazole Sodium [Protonix] 40 mg PO DAILY 09/30/13 Pravastatin [Pravachol] 20 mg PO QHS 09/30/13 Albuterol Inhaler [Ventolin Hfa] 2 puff INHALATION Q4H PRN PRN 10/30/18 Baclofen 10 mg PO TID PRN PRN 10/30/18 Cholecalciferol (VIT D3) [Vitamin D3] 1,000 unit PO DAILY 10/30/18 Cranberry Conc/Ascorbic Acid [Cranberry Concentrate Softgel] 1 each PO BID 10/30/18 Cyanocobalamin [Vitamin B12] 1,000 mcg PO DAILY@0800 10/30/18 Diphenoxylate/Atrop [Lomotil] 1 tablet PO 4X/DAY PRN PRN 10/30/18 Duloxetine Hcl [Cymbalta] 30 mg PO DAILY 10/30/18 Fluticasone 0.05% [Flonase Nasal [place]] 2 spray NASAL DAILY 10/30/18 Gabapentin [Neurontin] 600 mg PO TID 10/30/18 Guaifenesin [Mucinex] 1,200 mg PO BID PRN 10/30/18 Hydrocodone Bitart/Apap 5-325 [[place] 5/325] 1 tablet PO Q6H PRN PRN 10/30/18 Lisinopril [Zestril] 10 mg PO DAILY 10/30/18 Metformin HCl [Glucophage] 500 mg PO BID 10/30/18 Metoprolol(XL)Succ [Toprol Xl (Beta [place])] 25 mg PO DAILY 10/30/18 Multivitamins,Ther W-Minerals [Multivitamin With Minerals] 1 tablet PO 4X/DAY 10/30/18 Mupirocin [Bactroban] 1 applicatio TOPICAL BID 10/30/18 Nitrofurantoin Macrocrystals [Macrobid] 100 mg PO DAILY 10/30/18 Nystatin Powder [Mycostatin Powder] 1 applicatio TOPICAL BID PRN PRN 10/30/18 Oxybutynin Chloride [Ditropan Xl] 15 mg PO DAILY 10/30/18 Potassium (Otc) [Potassium OTC] 99 mg PO DAILY 10/30/18 Ranitidine [Zantac] 150 mg PO BID 10/30/18 Triamcinolone 0.1% Dental Pst [Kenalog Dental Paste] 1 applicatio TOPICAL 4X/DAY 10/30/18 Venlafaxine XR [Effexor Xr] 150 mg PO BID 10/30/18 Vitamin E 400 units PO BID 10/30/18 levETIRAcetam tablet [Keppra tablet] 500 mg PO QHS 10/30/18 Primary Care Physician: Noy Chakraborty MD [Primary Care Provider] - Please follow up with your Primary Care Physician in: 1-2 weeks Disposition: Home Minutes spent on discharge:: 38 Patient Condition:: Good Medical Necessity - Tobacco Use Smoking Status: Never smoker Meaningful Use Info Meaningful Use Diagnoses (Choose all that apply): None applicable Code Visit Inpatient E&M: 09519 Disch Hosp
--- NOTE | 2018-11-14 13:24 | DS.PCM_ITS ---
Addendum entered and electronically signed by DEDRICK Simmons 11/15/18 11:29: Code Visit Discharge delayed due to patient deciding on senior care facility at discharge. Patient was admitted 11/11/2018 due to generalized fatigue with fall at home. She has a past medical history of depression, morbid obesity, CHF, anxiety, asthma, type 2 diabetes mellitus, chronic suprapubic catheter, hypertension. Patient was found to have severe sepsis with unclear etiology. Initially thought to have complicated UTI. She was treated with IV Rocephin. Urine culture grew Pseudomonas which was resistant. Infectious disease evaluated patient and did not feel further antibiotics were necessary. Do not suspect active UTI infection. Suspect patient is colonized due to chronic suprapubic catheter. Blood cultures negative. Respiratory panel and influenza negative. Chest x-ray unremarkable. Unclear etiology for sepsis/fever. Patient was noted to have acute kidney injury secondary to dehydration which resolved with IV fluids. Toxic encephalopathy suspected secondary to acute renal failure. Mental status now at baseline. Patient was recommended to discontinue taking ciprofloxacin as needed at home. Patient was discharged to SNF for further PT/OT. She previously had 24-hour caregiver at home. She may require long-term SNF. Discharge date 11/15/2018. General: Alert, Oriented x3, Cooperative HEENT: Atraumatic, PERRLA, EOMI, Normocephalic Neck: Supple, No JVD, Negative Carotid Bruits Lungs: Clear to auscultation, Normal air movement Cardiovascular: Normal rate, normal rhythm, no murmur Abdomen: Bowel Sounds Present, Soft, Non Tender, obese, suprapubic catheter intact Extremities: No edema, Capillary Refill Less than 3 Seconds Skin: Chronic decubitus ulcer coccyx, dressing intact Musculoskeletal: No Tenderness to Palpation of Joints or Extremities Neurological: Cranial nerves II-XII grossly intact Psych/Mental Status: Normal Affect, Appropriate Patient seen and examined prior to discharge. Physical assessment as noted above. Patient is stable for discharge with follow up recommendations as noted above. This patient was seen by DEDRICK Simmons under the supervision of Dr. Triana. Original Note: Discharge Date and Diagnosis - Problem List Patient Problems: Active and Suspected Problems Dehydration (Acute) Date of Admission: 11/11/18 Date of Discharge: 11/14/18 - Primary Discharge Diagnosis Active and Suspected Problems severe sepsis - ruled out Complicated Cystitis - ruled out Acute kidney injury secondary to dehydration Dehydration (Acute) Hyponatremia Metabolic encephalopathy - Secondary Discharge Diagnosis Chronic Problems Debility (Chronic) Depression (Chronic) VITA (obstructive sleep apnea) (Chronic) on BiPAP Normochromic normocytic anemia Morbid obesity Diabetes mellitus type 2 Hospital Course and Treatment Imaging Results: Clinical Impression(s) from Imaging Studies Chest X-Ray 11/11/18 19:00 IMPRESSION: Stable appearance of the chest with no new or acute finding. Electronically Signed: Dejon Luna MD at 19:30 EST , Service support , Microbiology 11/13/18 16:10 Mucosa - Nose Respiratory Panel (PCR) - Final 11/11/18 19:57 Urine Catheter - Henry Urine Culture - Final Pseudomonas aeroginosa 11/11/18 23:45 Blood Culture (Wb) - Anticubital Left Blood Culture - Preliminary No growth in 48 hours. 11/11/18 18:35 Blood Culture (Wb) - Left Wrist Blood Culture - Preliminary No growth in 48 hours. 11/13/18 16:10 Mucosa - Nose Influenza Types A,B Direct FA (WENDI) - Final Laboratory Results - last 24 hr 11/13/18 11/13/18 11/13/18 16:03 17:04 21:26 Lactic Acid 1.0 POC Glucose 145 H 169 H 11/14/18 11/14/18 06:52 12:02 Lactic Acid POC Glucose 179 H 116 H Consultations 11/11/18 21:36 Consult: Onc/Wound/engine wiper Routine Comment: Reason for Consult:: pressure ulcers Dr. Colby Farah-infectious diseases Operations: None Procedures: None Summary of Care Provided: The patient is a 73-year-old female with a past medical history of depression, morbid obesity, congestive heart failure, anxiety, asthma, diabetes mellitus, chronic suprapubic catheter and HTN who presented to the ED at [facility] on 11/11/2018 with complaints of generalized fatigue and a fall at home. She was recently an inpatient at [facility] admitted on 10/30/2018 for sepsis secondary to acute complicated cystitis and discharged on 11/02/2018. Urine culture at that time grew mixed gram positives and negatives. She was not sent home on an antibiotic. Vital signs at presentation to the emergency room were temperature 100 ?F, pulse rate 102, blood pressure 113/72, respiratory rate 18 and she was 93% saturated on room air. Lab at admission showed an elevated white blood cell count at 17.3 with a left shift. Hemoglobin was 11.2 and was 9.9 at discharge from the hospital on 11/02/2018. Creatinine was elevated at 1.63, up from 1.21 at discharge from the hospital on 11/02/2018. In May of this year her creatinine was 0.8. Chest x- ray showed no infiltrates, pleural effusions or significant pulmonary vascular congestion. UA showed greater than 100 WBCs per high-power field and was nitrite positive. She was admitted to the hospital with a dx of severe sepsis due to complicated UTI. She was started on Rocephin. On PE at admission she was confused and very slow to answer questions. We felt she had a metabolic encephalopathy. She was hydrated and the next day she was much improved, alert and oriented x 3 and back to baseline. Fever and leukocytosis resolved within 48 hours. The urine culture grew pseudomonas aeruginosa which was resistant to aminoglycosides, cefepime, ceftazidime, fluoroquinolones and meropenem. She improved and the leukocytosis and fever resolved while on an antibiotic that did not cover the bacteria in the urine. She was seen in consultation by Dr. Farah on 11/14/2018 and he felt that she did not have cystitis and recommended discontinuation of Rocephin. I recommended to her that she did not take ciprofloxacin p.o. as needed at home. Respiratory panel and Influenza swab were both negative. The etiology of the fever at admission is unknown. GENERAL: oriented X 3, Cooperative, NAD, very alert today and promptly answers questions ORAL: dry mucosa, no mucosal lesions NECK: No JVD, supple, trachea midline LUNGS: CTA, symmetric chest expansion, breath sounds are diminished throughout, no rales, no wheezes, no conversational dyspnea and no accessory muscle use HEART: RRR, Normal S1 and S2, no rub, no gallop ABDOMEN: soft, NT, ND, BS present, no guarding with palpation, obese EXTREMITIES: edema, no cyanosis, no calf tenderness SKIN: No rashes, no breakdown NEUROLOGIC: no focal neurologic deficits PSYCH: appropriate, normal affect, pleasant This note was generated with NetSparkation software. It may contain incorrect words, spelling, and punctuation that were not noted in checking the note before signing. Patient Problems: Active and Suspected Problems Dehydration (Acute) - Physical Exam Vital Signs Temp Pulse Resp BP Pulse Ox 98.2 F 86 16 135/67 H 97 11/14/18 09:12 11/14/18 11:00 11/14/18 09:12 11/14/18 09:36 11/14/18 09:12 Oxygen Flow Rate (L/min) 2 Oxygen Delivery Method Nasal Cannula Weight: 352 lb 11.834 oz Body Mass Index (BMI) 56.9 Intake and Output for Last 24 Hours 11/12/18 11/13/18 11/14/18 23:59 23:59 23:59 Intake Total 3041 / 3041 2615 / 2615 1100 / 1100 Output Total 3625 / 3625 3300 / 3300 2750 / 2750 Balance -584 / -584 -685 / -685 -1650 / -1650 Microbiology Past 72 Hours 11/13/18 16:10 Respiratory Panel (PCR) - Final Mucosa - Nose 11/11/18 19:57 Urine Culture - Final Urine Catheter - Henry Pseudomonas aeroginosa 11/11/18 23:45 Blood Culture - Preliminary Blood Culture (Wb) - Anticubital Left No growth in 48 hours. 11/11/18 18:35 Blood Culture - Preliminary Blood Culture (Wb) - Left Wrist No growth in 48 hours. 11/13/18 16:10 Influenza Types A,B Direct FA (WENDI) - Final Mucosa - Nose Laboratory Tests Past 24 Hrs 11/13/18 16:03 Lactic Acid 1.0 POC Glucose 11/14/18 11/14/18 11/13/18 12:02 06:52 21:26 POC Glucose 116 H 179 H 169 H 11/13/18 17:04 POC Glucose 145 H Discharge Activity: Return to Normal Activity Home Medications: Medications to take at Discharge DiphenhydrAMINE [Benadryl] 25 mg PO BID PRN PRN 09/30/13 Furosemide [Lasix] 20 mg PO TID 09/30/13 Pantoprazole Sodium [Protonix] 40 mg PO DAILY 09/30/13 Pravastatin [Pravachol] 20 mg PO QHS 09/30/13 Albuterol Inhaler [Ventolin Hfa] 2 puff INHALATION Q4H PRN PRN 10/30/18 Baclofen 10 mg PO TID PRN PRN 10/30/18 Cholecalciferol (VIT D3) [Vitamin D3] 1,000 unit PO DAILY 10/30/18 Cranberry Conc/Ascorbic Acid [Cranberry Concentrate Softgel] 1 each PO BID 10/30/18 Cyanocobalamin [Vitamin B12] 1,000 mcg PO DAILY@0800 10/30/18 Diphenoxylate/Atrop [Lomotil] 1 tablet PO 4X/DAY PRN PRN 10/30/18 Duloxetine Hcl [Cymbalta] 30 mg PO DAILY 10/30/18 Fluticasone 0.05% [Flonase Nasal [place]] 2 spray NASAL DAILY 10/30/18 Gabapentin [Neurontin] 600 mg PO TID 10/30/18 Guaifenesin [Mucinex] 1,200 mg PO BID PRN 10/30/18 Hydrocodone Bitart/Apap 5-325 [[place] 5/325] 1 tablet PO Q6H PRN PRN 10/30/18 Lisinopril [Zestril] 10 mg PO DAILY 10/30/18 Metformin HCl [Glucophage] 500 mg PO BID 10/30/18 Metoprolol(XL)Succ [Toprol Xl (Beta Gen[place])] 25 mg PO DAILY 10/30/18 Multivitamins,Ther W-Minerals [Multivitamin With Minerals] 1 tablet PO 4X/DAY 10/30/18 Mupirocin [Bactroban] 1 applicatio TOPICAL BID 10/30/18 Nitrofurantoin Macrocrystals [Macrobid] 100 mg PO DAILY 10/30/18 Nystatin Powder [Mycostatin Powder] 1 applicatio TOPICAL BID PRN PRN 10/30/18 Oxybutynin Chloride [Ditropan Xl] 15 mg PO DAILY 10/30/18 Potassium (Otc) [Potassium OTC] 99 mg PO DAILY 10/30/18 Ranitidine [Zantac] 150 mg PO BID 10/30/18 Triamcinolone 0.1% Dental Pst [Kenalog Dental Paste] 1 applicatio TOPICAL 4X/DAY 10/30/18 Venlafaxine XR [Effexor Xr] 150 mg PO BID 10/30/18 Vitamin E 400 units PO BID 10/30/18 levETIRAcetam tablet [Keppra tablet] 500 mg PO QHS 10/30/18 Primary Care Physician: Noy Chakraborty MD [Primary Care Provider] - Please follow up with your Primary Care Physician in: 1-2 weeks Disposition: Home Minutes spent on discharge:: 38 Patient Condition:: Good Medical Necessity - Tobacco Use Smoking Status: Never smoker Meaningful Use Info Meaningful Use Diagnoses (Choose all that apply): None applicable Code Visit Inpatient E&M: 32138 Disch Hosp
--- NOTE | 2018-11-14 15:48 | CASEMGMT ---
Patient is ready for discharge today. However, she is stating she cannot go home and wants to go to a SNF. She and her sister [facility]. ELIAS told them SW will work on the referral. ELIAS called [facility] and left a message with referral as well as faxed information. ELIAS also called [facility] and made a referral as well as faxed information. Ashwini BONILLA MSW
--- NOTE | 2018-11-14 16:29 | CASEMGMT ---
SW let patient know referrals were faxed to both [facility] and [facility]. SW told her SW will let her know when SW hears from the facilities. Plan: SNF pending accepting facility. Ashwini VIERA
[2018-11-14 17:30] LABS: Bedside Glucose 111 mg/dL (70-110)
--- NOTE | 2018-11-14 18:46 | NURSING ---
Patient was discharged by MD Triana at 1400 today. Patient and family were concerned and not sure she should be discharged yet. Family spoke with charge coordinator. Clarified all MD notes and discharge process with patient. Pt unwilling to be discharged and would like to go to rehab. Charge and director social made aware. MD made aware of patients plans and wishes. MD asked to come see patient. PT denied and stated should would not be cancelling discharge for patient. ecclesiastical worker looking into rehab locations for patient. PT will be refusing discharge.
[2018-11-14] MEDS: Pravastatin 20 MG Tablet PO (23:43)
[2018-11-14] MEDS: levETIRAcetam 500 MG Tablet PO (23:43)
[2018-11-15] VITALS (7 sets, daily range): BP systolic 146–151; BP diastolic 64–66; PULSE 80–87; RESP 18–20; TEMP 36.5–36.8; O2SAT 97–100
[2018-11-15 00:11] LABS: Bedside Glucose 102 mg/dL (70-110)
[2018-11-15] MEDS: Heparin Injection (Vial) 5,000 UNIT/ML VIAL 5000 UNIT SC (05:58)
[2018-11-15] MEDS: Gabapentin 600 MG Tablet PO ×2 (06:06→13:11)
[2018-11-15] MEDS: Menthol/Lanolin/Calamine/Znox 113 GM Tube 1 APPLIC TOPICAL ×2 (06:06→13:10)
[2018-11-15 07:05] LABS: Bedside Glucose 133 mg/dL (70-110)
--- NOTE | 2018-11-15 07:35 | CASEMGMT ---
Addendum entered by Ashwini Prado 11/15/18 08:51: SW let patient know both SNF's can accept her. She is going to confer with her sister and let SW know which one she prefers. Ashwini VIERA Original Note: SW received messages from both [facility] and [facility]. Both of them are able to accept patient. SW will talk with patient to see which facility she would prefer. Ashwini BONILLA MSW
[2018-11-15] MEDS: Venlafaxine XR 150 MG Capsule PO (09:13)
[2018-11-15] MEDS: Metoprolol(XL)Succ 25 MG Tablet PO (09:13)
[2018-11-15] MEDS: Pantoprazole Sodium 40 MG Tablet PO (09:14)
[2018-11-15] MEDS: Tolterodine Tartrate 2 MG CAP.SA PO (09:14)
[2018-11-15] MEDS: Cyanocobalamin 500 MCG Tablet 1000 MCG PO (09:14)
[2018-11-15] MEDS: Famotidine 20 MG Tablet PO (09:14)
[2018-11-15] MEDS: Multivitamin (Healthy Eyes) Capsule 1 CAP PO ×2 (09:14→13:11)
[2018-11-15] MEDS: Furosemide 40 MG Tablet PO (09:14)
[2018-11-15] MEDS: Vitamin E 400 UNITS Capsule PO (09:14)
[2018-11-15] MEDS: Fluticasone 0.05% 1 SPRAY NASAL.SRY 2 SPRAY NASAL (09:14)
[2018-11-15] MEDS: Mupirocin Ointment 22gm Tube 1 APPLIC TOPICAL (09:15)
[2018-11-15] MEDS: Nystatin Powder 15gm Bottle 1 APPLIC TOPICAL (09:23)
--- NOTE | 2018-11-15 10:13 | CASEMGMT ---
Addendum entered by Ashwini Prado 11/15/18 10:54: Adrianna at [facility] said that they rented a larger sit to stand. Their sit to stand goes up to 350 lbs so they wanted one that could handle more weight due to her size. SW let patient know this information and she was very thankful. Ashwini VIERA Original Note: Patient decided she wanted to go to [facility]. ELIAS let Adrianna at [facility] know this information. Patient was asking if she could bring in her sit to stand to get in her own wheelchair for family to transport her to [facility]. ELIAS told her SW will ask the charger operator. ELIAS called Sonia at [facility] and left her a voice mail letting her know patient's choice. Ashwini VIERA
--- NOTE | 2018-11-15 11:02 | PCM.EXTCARCO ---
- Diet 11/11/18 21:36 Diet: Cardiac/Low Cholesterol Food consistency:: Regular Liquid Consistency:: Regular/Thin - Routine Orders/Code Status Enema Type: Fleetz Enema Frequency: Daily PRN Suppository Type: Dulcolax 10mg Suppository Frequency: Daily PRN Change Henry Catheter: Suprapubic catheter O2 Liters per Minute: 2 O2 Frequency: PRN Keep PO Greater than or Equal to (%): 90 Routine Lab Work: CBC, BMP, - - Q Week Code Status: Full Code - Wound(s) Rear Left Leg/Hip Wound Type: Pressure Injury Rear Left Leg Wound Type: Pressure Injury Coccyx Wound Type: Pressure Injury - Suggestions for Active Care Change Position every (hours): 2 Times a day to sit in chair: 3 - Therapies Physical Therapy: Eval and Treat Occupational Therapy: Eval and Treat - Problem/Diagnosis (1) Sepsis Status: Ruled-out Current Visit: Yes (2) Acute metabolic encephalopathy Status: Acute Current Visit: Yes (3) Debility Status: Chronic Current Visit: No (4) MICHAELLE (acute kidney injury) Status: Acute Current Visit: Yes (5) Depression Status: Chronic Current Visit: No (6) VITA (obstructive sleep apnea) Status: Chronic Current Visit: No (7) Acute cystitis Status: Ruled-out Current Visit: Yes - Allergies/Procedures Done in Hospital Allergies/Adverse Reactions: Allergies adhesive tape Allergy (Verified 11/11/18 21:47) blisters Influenza Virus Vaccines Allergy (Verified 11/11/18 21:47) shortness of breath/severe wheezing iron Allergy (Verified 11/11/18 21:47) from IV form chest pressure and heart palpitations Sulfa (Sulfonamide Antibiotics) Allergy (Verified 11/11/18 21:47) Shortness of breath bactrim does not work for her-per pcp paperwork meloxicam [From Mobic] Adverse Reaction (Verified 11/11/18 21:47) gi upset seasonal allergies Allergy (Uncoded 11/11/18 21:47) Other - Type of Care/Length of Stay Estimated LOS: Convalescent Care Less Than 30 days Type of Care Needed: Skilled Rehab Potential: Fair Prognosis: Fair - Additional Orders/Day of Discharge H&P will serve as current which was dated: 11/11/18 Day of Discharge: 11/15/18 - Dietary and Speech Recommendations Dietitian Recommendations/Changes: Suggest diet change to 2000 calorie/cardiac/low sodium with fluid restriction as needed. Will d/c prashant gudino on [facility]--pt refusing & BMI 56.9. Suggest John 1 packet BID for wound healing--order from pharmacy. - Follow Up Care Primary Care Physician: Noy Chakraborty MD [Primary Care Provider] - Please follow up with your Primary Care Physician in: 1-2 weeks
[2018-11-15 11:21] LABS: Bedside Glucose 125 mg/dL (70-110)
--- NOTE | 2018-11-15 12:30 | CASEMGMT ---
Orders were faxed to [facility]. Patient's family to transport. Ashwini BONILLA MSW
--- NOTE | 2018-11-15 13:04 | NURSING ---
Called report to Shayla MUÑOZ at [facility]
== END 2018-11-15 13:45 | disposition skilled nursing facility (03) | DRG 682 ==
LOC: ED 21:02 → PCU 21:06
PROVIDERS: Admitting Provider Hospitalist; Emergency Provider Emergency Medicine; Family Provider Internal Medicine; PCP Internal Medicine; Visit Provider Internal Medicine
DX: N17.9 Acute kidney failure, unspecified (principal); G93.41 Metabolic encephalopathy; E87.1 Hypo-osmolality and hyponatremia; Z68.43 Body mass index [BMI] 50.0-59.9, adult; I50.30 Unspecified diastolic (congestive) heart failure; E86.0 Dehydration; R53.81 Other malaise; F32.9 Major depressive disorder, single episode, unspecified; I11.0 Hypertensive heart disease with heart failure; G47.33 Obstructive sleep apnea (adult) (pediatric); L30.4 Erythema intertrigo; D64.9 Anemia, unspecified; E66.01 Morbid (severe) obesity due to excess calories; E11.9 Type 2 diabetes mellitus without complications; Z79.84 Long term (current) use of oral hypoglycemic drugs; Z79.899 Other long term (current) drug therapy; L89.90 Pressure ulcer of unspecified site, unspecified stage
CPT/HCPCS: 36415; 71045; 80048; 80053; 81001; 82962; 83036; 83605; 83735; 84100; 84484; 85025; 85610; 85730; 87040; 87077; 87086; 87088; 87184; 87186; 87633; 87804; 93005; 94762; 97162; 97166; 97530; 97802; 99285; J7030; J7040; A4216

== ENCOUNTER 2018-12-17 14:06 | Inpatient (IN) | payer MEDICARE, OTHER, SELFPAY ==
[2018-11-11 21:44] VITALS: BMI 56.9
[2018-12-17] VITALS (9 sets, daily range): BP systolic 81–134; BP diastolic 38–83; PULSE 94–147; RESP 16–22; TEMP 36.6–38.2; O2SAT 88–100; BMI 45.4; BMI 53.6
--- NOTE | 2018-12-17 15:10 | EKG12_ITS ---
Test Reason : Blood Pressure : / mmHG Vent. Rate : 133 BPM Atrial Rate : 104 BPM P-R Int : 136 ms QRS Dur : 074 ms QT Int : 340 ms P-R-T Axes : 266 031 025 degrees QTc Int : 506 ms Sinus tachycardia Low voltage QRS Inferior infarct , age undetermined Possible Anterolateral infarct , age undetermined Abnormal ECG Confirmed by CACHORRO THOMPSON, JUAN ([id number]), magazine editor JAMI TOLENTINO ([id number]) on 12/19/2018 2:01:48 PM Referred By: [facility] Confirmed By:JUAN IVORY MD
--- NOTE | 2018-12-17 15:10 | RAD_ITS ---
STUDY: X-RAY CHEST REASON FOR EXAM: Female, 73 years old. Chest pain. Cough. TECHNIQUE: Single AP portable view of the chest. COMPARISON: Comparison is made with prior study dated November 11, 2018. FINDINGS: EKG electrodes are seen. The lungs are clear and expanded. There is no demonstrated pleural abnormality. There is mild cardiac enlargement. Normal mediastinum and peace. Normal visualized pulmonary arteries. There is atherosclerotic calcification of the aortic arch with tortuosity. Normal visualized thoracic spine. There is degenerative osteoarthritis of the bilateral shoulders. There is no demonstrated abnormality of the visualized soft tissue structures of the upper abdomen. RAD/Chest 1 View (Portable) IMPRESSION: Mild cardiomegaly. Electronically Signed: Joaquin Douglass MD at 15:42 EST , Service support ,
[2018-12-17] MEDS: Acetaminophen 500 MG Tablet 1000 MG PO (15:27)
[2018-12-17] MEDS: Ondansetron 4 MG/2 ML Vial IV (15:27)
[2018-12-17] MEDS: 0.9% Normal Saline 1,000 ML 999 ML IV ×3 (15:27→18:39)
--- NOTE | 2018-12-17 15:30 | NURSING ---
NEED COAGS, HEMOLIZED
[2018-12-17 15:33] LABS: Absolute Lymphocyte Count 0.96 X10^3/ul (0.83-4.51); Absolute Neutrophil Count 14.1 X10^3/uL (2.0-7.7); Basophil# 0.02 X10^3/uL; Basophil% 0.1 % (0-1); Eosinophil# 0.01 X10^3/uL; Eosinophils% 0.1 % (0-5); Hematocrit 37.7 % (37-47); Hemoglobin 11.7 g/dl (12.0-15.0); Lymphocyte # 0.96 X10^3/ul (4.0); Lymphocyte % 5.8 % (19-41); Mean Corpuscular Hgb 29.3 pg (27.0-32.0); Mean Corpuscular Volume 94.5 fL (81-99); Mean Platelet Vol. 11.1 fl (6.2-12.0); Monocyte# 1.25 X10^3/uL; Monocyte% 7.6 % (0-10); Neutrophil # 14.11 X10^3/uL (2.7-7.7); Platelet Count 346 K/mm3 (150-450); RBC Distribution Width CV 17.9 % (11.6-14.6); RBC Distribution Width SD 60.6 fl (35.1-43.9); Red Blood Count 3.99 M/mm3 (4.2-5.4); White Blood Count 16.4 K/mm3 (4.4-11.0)
[2018-12-17 15:34] LABS: POSITIVE COUNT NO; POSITIVE DIFFERENTIAL NO; POSITIVE MORPHOLOGY NO
[2018-12-17] MEDS: Ceftriaxone 1 GM/50 ML BAG IV (15:41)
[2018-12-17 15:48] LABS: ALB/GLOB Ratio 0.5 RATIO (0.9-2.4); AST(SGOT) 66 U/L (15-37); Alanine Aminotransfer ALT/SGPT 22 U/L (13-56); Alkaline Phosphatase 57 U/L (45-117); Anion Gap 7 (5-15); BUN 17 mg/dL (7-18); BUN/Creat Ratio 13.9 RATIO (10-20); Calcium,Total 9.1 mg/dL (8.5-10.1); Chloride 99 mmol/L (98-107); Creatinine, Serum 1.22 mg/dL (0.55-1.02); EST Glomerular Filtration Rate 46 mL/min (>60); Est Glom Filt Rate - Afr Amer 56 mL/min (>60); Estimated Creatinine Clearance 40.53 ml/min; Globulin 6.2 g/dL (2.2-4.2); Glucose 152 mg/dL (74-106); Potassium 5.9 mmol/L (3.5-5.1); Protein, Total 9.2 g/dL (6.4-8.2); Sodium Level 131 mmol/L (136-145)
[2018-12-17 16:21] LABS: Mucous, Urine 0 SEEN /hpf (<or=2+)
[2018-12-17 16:23] LABS: Color, Urine Yellow (Yellow); Glucose, Dipstick Normal (Normal); Ketone-Dipstick 5 mg/dl (Negative); Leukocyte Esterase-Dipstick 500 /ul (Negative); Nitrite-Dipstick Positive (Negative); Occult Blood-Urine 250 /ul (Negative); Protein-Dipstick 100 mg/dl (Negative); Urine Clarity Turbid (Clear); Urine Urobilinogen 4 mg/dl (Normal); Urine pH 6.5 (5.0 - 8.0)
[2018-12-17 16:31] LABS: Urine Bilirubin Dipstick 3 mg/dL (Negative)
[2018-12-17 16:35] LABS: Squamous Epithelial Cells - UA 0-5 SEEN /hpf (5-10)
[2018-12-17 16:38] LABS: Bacteria 4+ /hpf (None Seen); Red Blood Cells-Urine 25-50 SEEN /hpf (0-5); White Blood Cells >100 SEEN /hpf (0-5)
[2018-12-17 16:43] LABS: International Normalized Ratio 1.1; Prothrombin Time (Protime)PT. 14.6 SECONDS (11.7-14.9)
[2018-12-17 16:45] LABS: Partial Thromboplast Time 30.5 Seconds (24.1-36.2)
[2018-12-17] MEDS: HYDROCODONE/APAP 7.5-325/15ML 15 ML UDC PO (17:22)
--- NOTE | 2018-12-17 17:31 | ED.RN ---
LAB CALLED AND NO LACTIC WAS APPARENTLY DRAWN. AWARE THEY NEED TO COME BACK UP AND DRAW.
[2018-12-17 17:51] LABS: Lactic Acid 2.1 mmol/L (0.4-2.0)
--- NOTE | 2018-12-17 18:08 | NURSING ---
DR JAVIER FOR DR SCHAEFER
--- NOTE | 2018-12-17 18:16 | HP.PCM_ITS ---
Problem List (1) Severe sepsis Status: Acute (2) MICHAELLE (acute kidney injury) Status: Acute (3) Depression Status: Chronic Qualifiers: Depression Type: unspecified Qualified Code(s): F32.9 - Major depressive disorder, single episode, unspecified (4) VITA (obstructive sleep apnea) Status: Chronic (5) UTI (urinary tract infection) Status: Acute Qualifiers: Urinary tract infection type: catheter-associated UTI Indwelling urinary catheter type: cystostomy catheter Encounter type: initial encounter Qualified Code(s): T83.510A - Infection and inflammatory reaction due to cystostomy catheter, initial encounter; N39.0 - Urinary tract infection, site not specified History of Present Illness Date of Admission: 12/17/18 Chief Complaint: Fever, lethargy - 1 day The patient is a 73 year old F with past medical history of super morbid obesity, recurrent UTI, status post suprapubic catheter, hypertension, hyperlipidemia, type II DM comes in with complaints of fever and lethargy. History was taken from the patient and his sister. Had a sister, patient has history of septic shock, and she found patient more lethargic, easily fatigued, and had a fever. She has history of recurrent UTI. Her recent urine culture (11/11/18) grew Pseudomonas was sensitive only to aztreonam, resistant to the other antibiotics. Denied any chest pain, dizziness, or shortness of breath. Vitals in the ED showed temperature 100.8 F, heart rate 147, blood pressure 102/83, respiratory 22, SPO2 was 88% on room air. Blood pressure later dropped to 81/38. WBC count of 16.4, hemoglobin 11.7, platelet count 346, INR 1.1, sodium 131, potassium 5.9, BUN 17, creatinine 1.22, lactic acid was 2.1 Blood cultures and urine cultures taken in the emergency department were pending Chest x-ray showed mild cardiomegaly Past Medical History Past Medical History (Chronic Problems): Chronic Problems Debility (Chronic) Depression (Chronic) VITA (obstructive sleep apnea) (Chronic) Allergies adhesive tape Allergy (Verified 11/11/18 21:47) blisters Influenza Virus Vaccines Allergy (Verified 11/11/18 21:47) shortness of breath/severe wheezing iron Allergy (Verified 11/11/18 21:47) from IV form chest pressure and heart palpitations Sulfa (Sulfonamide Antibiotics) Allergy (Verified 11/11/18 21:47) Shortness of breath bactrim does not work for her-per pcp paperwork meloxicam [From [facility]] Adverse Reaction (Verified 11/11/18 21:47) gi upset seasonal allergies Allergy (Uncoded 11/11/18 21:47) Other Home Medications: Ambulatory Orders Medication Instructions Recorded DiphenhydrAMINE [Benadryl] 25 mg PO BID PRN PRN 09/30/13 Furosemide [Lasix] 20 mg PO TID 09/30/13 Pantoprazole Sodium [Protonix] 40 mg PO DAILY 09/30/13 Albuterol Inhaler [Ventolin Hfa] 2 puff INHALATION Q4H PRN PRN 10/30/18 Baclofen 10 mg PO TID PRN PRN 10/30/18 Cholecalciferol (VIT D3) [Vitamin 1,000 unit PO DAILY 10/30/18 D3] Cranberry Conc/Ascorbic Acid 1 each PO BID 10/30/18 [Cranberry Concentrate Softgel] Diphenoxylate/Atrop [Lomotil] 1 tablet PO 4X/DAY PRN PRN 10/30/18 Duloxetine Hcl [Cymbalta] 30 mg PO DAILY 10/30/18 Fluticasone 0.05% [Flonase Nasal 2 spray NASAL DAILY 10/30/18 Bells] Gabapentin [Neurontin] 600 mg PO TID 10/30/18 Guaifenesin [Mucinex] 1,200 mg PO BID PRN 10/30/18 Hydrocodone Bitart/Apap 5-325 1 tablet PO Q6H PRN PRN 10/30/18 [[place] 5/325] Lisinopril [Zestril] 10 mg PO DAILY 10/30/18 Metformin HCl [Glucophage] 500 mg PO BID 10/30/18 Metoprolol(XL)Succ [Toprol Xl 25 mg PO DAILY 10/30/18 (Beta Genaro)] Multivitamins,Ther W-Minerals 1 tablet PO 4X/DAY 10/30/18 [Multivitamin With Minerals] Mupirocin [Bactroban] 1 applicatio TOPICAL BID 10/30/18 Nystatin Powder [Mycostatin Powder] 1 applicatio TOPICAL BID PRN PRN 10/30/18 Oxybutynin Chloride [Ditropan Xl] 15 mg PO DAILY 10/30/18 Potassium (Otc) [Potassium OTC] 99 mg PO DAILY 10/30/18 Ranitidine [Zantac] 150 mg PO BID 10/30/18 Triamcinolone 0.1% Dental Pst 1 applicatio TOPICAL 4X/DAY 10/30/18 [Kenalog Dental Paste] Vitamin E 400 units PO BID 10/30/18 levETIRAcetam tablet [Keppra 500 mg PO QHS 10/30/18 tablet] Acetaminophen [Tylenol] 650 mg PO Q6H PRN PRN 12/17/18 Cyanocobalamin (Vitamin B-12) 1,000 mcg PO DAILY 12/17/18 [B-12] Guaifenesin 400 mg PO Q4H PRN PRN 12/17/18 Pravastatin [Pravachol] 20 mg PO QHS 12/17/18 Venlafaxine HCl [Effexor] 75 mg PO TID 12/17/18 Surgical History: cholecystectomy, hysterectomy Psychiatric History: Anxiety, Depression 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 Denies: Chills, Fever, Weight Change Eyes: Denies: Blurred vision, Conjunctivae Inflammation, Pain, Redness, Vision Change HEENT: Denies: Difficulty Hearing, Difficulty Swallowing, Head Aches, Hearing Changes, Nasal bleeding, Nasal Congestion, Sinus Congestion, Sinus Drainage, Sore Throat, Visual Changes Cardiovascular: Reports: Light Headedness. Denies: Chest Pain, Claudication, Chest Pressure, Chest Tightness, Orthopnea, Palpitations, Paroxysmal Noc. Dyspnea, Syncope Respiratory: Reports: Shortness of breath at rest, Shortness of breath upon exertion. Denies: Cough, Hemoptysis, Sputum production Gastrointestinal: Denies: Abdominal Pain, Constipation, Hematemesis, Nausea, Vomiting Genitourinary: Denies: Dysuria, Incontinence Gynecological: Denies: Breast symptoms, Excessively long or heavy periods Musculoskeletal: Reports: Leg Pain - right leg. Denies: Joint Pain, Joint stiffness, Joint swelling, Joint Tenderness Skin: Denies: Rash, Wounds Neurological: Denies: Numbness, Tingling, Focal weakness Psychiatric: Denies: Anxiety, Depression, Homicidal Ideations, Suicidal Ideations Hematologic/ Lymphatic: Denies: Easy Bruising, Easy Bleeding VTE Information - Inpt Only VTE Present on Admission: No VTE Pharm Prophylaxis ordered?: Yes Patient Problems: Active and Suspected Problems Severe sepsis (Acute) - Physical Exam General: Alert, Oriented x3, Cooperative, No apparent distress, - - super- morbidly obese HEENT: Atraumatic, PERRLA, EOMI, Normocephalic Oral: Moist Mucosa Neck: Supple, No JVD, Negative Carotid Bruits Lungs: Normal air movement, Diminished - at the lung bases Cardiovascular: Regular rate, Regular Rhythm, Normal S1, Normal S2, No murmurs, Tachycardic Abdomen: Bowel Sounds Present, Soft, Non Tender, Non-Distended, No Hepato- splenomegaly, Obese, - - Severe candidal intertrigo in the anterior abdominal wall pannus, purulent discharge around the suprapubic catheter Extremities: Edema - bilateral pedal edema +1, - - Swelling and erythema of the right lower leg with differential warmth Skin: No rashes, No breakdown Musculoskeletal: No Tenderness to Palpation of Joints or Extremities Lymphatic: No Cervical, Supraclavicular, or Inguinal Adenopathy Neurological: Cranial nerves II-XII grossly intact, Neuro grossly intact Psych/Mental Status: Normal Affect, Appropriate Vital Signs Temp Pulse Resp BP Pulse Ox 99.5 F H 95 17 88/53 L 95 12/17/18 18:13 12/17/18 18:13 12/17/18 18:13 12/17/18 18:13 12/17/18 18:13 Oxygen Flow Rate (L/min) 2 Oxygen Delivery Method Room Air Weight: 131.542 kg Body Mass Index (BMI) 45.4 Laboratory Tests Past 24 Hrs 12/17/18 12/17/18 12/17/18 14:30 14:30 14:30 WBC 16.4 H RBC 3.99 L Hgb 11.7 L Hct 37.7 MCV 94.5 MCH 29.3 MCHC 31.0 L RDW 17.9 H RDW Differential 60.6 H Plt Count 346 MPV 11.1 Immature Gran % (Auto) 0.400 Neut % (Auto) 86.0 H Lymph % (Auto) 5.8 L [place] % (Auto) 7.6 Eos % (Auto) 0.1 Baso % (Auto) 0.1 Absolute Neuts (auto) 14.1 H Absolute Lymphs (auto) 0.96 Total Counted Not Reportable PT Cancelled INR Cancelled APTT Cancelled Sodium 131 L Potassium 5.9 H Chloride 99 Carbon Dioxide 25.0 Anion Gap 7 BUN 17 Creatinine 1.22 H Estim Creat Clear Calc 40.53 Est GFR (MDRD) Af Amer 56 L Est GFR (MDRD) Non-Af 46 L BUN/Creatinine Ratio 13.9 Glucose 152 H Lactic Acid Calcium 9.1 Total Bilirubin 0.90 AST 66 H ALT 22 Alkaline Phosphatase 57 Total Protein 9.2 H Albumin 3.0 L Globulin 6.2 H Albumin/Globulin Ratio 0.5 L Urine Color Urine Clarity Urine pH Ur Specific [place] Urine Protein Urine Glucose (UA) Urine Ketones Urine Occult Blood Urine Nitrite Urine Bilirubin Urine Urobilinogen Ur Leukocyte Esterase Urine RBC Urine WBC Ur Squamous Epith Cells Urine Bacteria Urine Mucus 12/17/18 12/17/18 12/17/18 16:10 16:20 17:13 WBC RBC Hgb Hct MCV MCH MCHC RDW RDW Differential Plt Count MPV Immature Gran % (Auto) Neut % (Auto) Lymph % (Auto) [place] % (Auto) Eos % (Auto) Baso % (Auto) Absolute Neuts (auto) Absolute Lymphs (auto) Total Counted PT 14.6 INR 1.1 APTT 30.5 Sodium Potassium Chloride Carbon Dioxide Anion Gap BUN Creatinine Estim Creat Clear Calc Est GFR (MDRD) Af Amer Est GFR (MDRD) Non-Af BUN/Creatinine Ratio Glucose Lactic Acid 2.1 H Calcium Total Bilirubin AST ALT Alkaline Phosphatase Total Protein Albumin Globulin Albumin/Globulin Ratio Urine Color Yellow Urine Clarity Turbid Urine pH 6.5 Ur Specific [place] 1.010 Urine Protein 100 H Urine Glucose (UA) Normal Urine Ketones 5 H Urine Occult Blood 250 H Urine Nitrite Positive H Urine Bilirubin 3 H Urine Urobilinogen 4 H Ur Leukocyte Esterase 500 H Urine RBC 25-50 SEEN Urine WBC >100 SEEN Ur Squamous Epith Cells 0-5 SEEN Urine Bacteria 4+ Urine Mucus 0 SEEN Assessment/Plan All Active Problems Severe sepsis (Acute) Dehydration (Acute) Sepsis (Ruled-out) Acute metabolic encephalopathy (Acute) MICHAELLE (acute kidney injury) (Acute) Acute cystitis (Ruled-out) Suprapubic catheter dysfunction (Acute) UTI (urinary tract infection) (Acute) 73 year old F with past medical history of super morbid obesity, recurrent UTI, status post suprapubic catheter, hypertension, hyperlipidemia, type II DM comes in with complaints of fever and lethargy and found to have elevated white cell count, and lactic acid more than 2.1. 1. Severe sepsis secondary to acute complicated UTI, suprapubic catheter related and right lower leg cellulitis, Previous urine cultures grew Pseudomonas, resistant to antibiotics except for aztreonam Patient has leukocytosis, tachycardia, lactic acid more than 2.1, blood pressure is borderline, blood and urine cultures are pending Plan: Admit to PCU, monitor on telemetry, continue on IV fluids, monitor vitals closely, continue on aztreonam IV BID, ID consult 2. Acute complicated UTI related to infected suprapubic catheter, poor suprapubic catheter care, complicated by severe candidal intertrigo of abdominal wall pannus, blood and urine cultures are pending, will continue on aztreonam for now, pending urine culture results, follow-up on ID recommendations 3. Acute right lower leg cellulitis, unclear of the inciting etiology, will continue on cefazolin, will follow up on ID recommendation 4. Severe abdominal wall pannus candidal intertrigo, on nystatin powder, will add Diflucan 200mg po daily 5. Hyperkalemia, no EKG changes, likely related to ACEI/CKD, will repeat potassium, if still elevated, will treat 6. Hyponatremia, hypovolemic, will hydrate patient, repeat blood work in a.m. 7. Super morbid obesity, BMI 53.6, patient may be candidate for bariatric surgery, needs to be referred 8. Hypertension, slightly hypotensive for now, will hold lisinopril, continue to monitor vital 9. Type II DM, on metformin, will hold metformin, will continue on insulin sliding scale with Accu-Cheks 9. DVT PPx- Heparin SC Code Visit Inpatient E&M: 74152 Init Hosp L3
--- NOTE | 2018-12-17 18:20 | NURSING ---
PCU SEVERE SEPSIS, UTI PAINTSIL
[2018-12-17] MEDS: 0.9% Normal Saline 1,000 ML 150 ML IV (21:01)
[2018-12-17] MEDS: Famotidine 20 MG Tablet PO (21:04)
[2018-12-17] MEDS: Pravastatin 20 MG Tablet PO (21:04)
[2018-12-17] MEDS: Gabapentin 600 MG Tablet PO (21:04)
[2018-12-17] MEDS: Vitamin E 400 UNITS Capsule PO (21:04)
[2018-12-17] MEDS: Heparin Injection (Vial) 5,000 UNIT/ML VIAL 5000 UNIT SC (21:04)
[2018-12-17] MEDS: levETIRAcetam 500 MG Tablet PO (21:04)
[2018-12-17] MEDS: Venlafaxine HCl 75 MG Tablet PO (21:04)
[2018-12-17] MEDS: Nystatin Powder 15gm Bottle 1 APPLIC TOPICAL (21:05)
[2018-12-17] MEDS: Acetaminophen 325 MG Tablet 650 MG PO (21:05)
[2018-12-17 21:17] LABS: Reflex Lactate? Y
--- NOTE | 2018-12-17 22:03 | VDLE_ITS ---
Reason For Study: LEG SWELLING RIGHT GSV is normal. CFV is compressible, spontaneous, phasic, competent and demonstrates normal augmentation. FV is compressible, spontaneous, phasic, competent and demonstrates normal augmentation. POP V is compressible, spontaneous, phasic, competent and demonstrates normal augmentation. T/P Trunk is compressible. PTV is compressible. RT PerV is compressible. Procedure Exam performed portable in patient room. Technically difficult due to body habitus. A preliminary report was called and/or faxed to [facility]. Interpretation Summary There is no evidence of right lower extremity deep vein thrombosis. Right greater saphenous vein appears patent and compressible segmentally. Ordering Physician: Karime Montelongo Referring Physician: Noy Chakraborty Performed By: Cathryn Briceño RVT
[2018-12-17 22:25] LABS: Lactic Acid 1.8 mmol/L (0.4-2.0)
[2018-12-17] MEDS: Fluconazole 100 MG Tablet 200 MG PO (23:09)
[2018-12-17] MEDS: Cefazolin 1 GM/50 ML BAG IV (23:09)
[2018-12-17 23:38] LABS: Anion Gap 7 (5-15); BUN 17 mg/dL (7-18); BUN/Creat Ratio 15.9 RATIO (10-20); Calcium,Total 7.9 mg/dL (8.5-10.1); Chloride 103 mmol/L (98-107); Creatinine, Serum 1.07 mg/dL (0.55-1.02); EST Glomerular Filtration Rate 54 mL/min (>60); Est Glom Filt Rate - Afr Amer 65 mL/min (>60); Estimated Creatinine Clearance 46.22 ml/min; Glucose 105 mg/dL (74-106); Potassium 4.1 mmol/L (3.5-5.1); Sodium Level 136 mmol/L (136-145)
[2018-12-18] VITALS (11 sets, daily range): BP systolic 109–156; BP diastolic 46–92; PULSE 93–108; RESP 16–18; TEMP 37.2–38.1; O2SAT 94–98
[2018-12-18 00:16] LABS: Bedside Glucose 75 mg/dL (70-110)
--- NOTE | 2018-12-18 01:08 | ED.VISSUMM ---
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 She has a history of suprapubic catheter for the past 8 years. It was last changed November 29. Patient reports that she became confused today and has had subjective fever and chills. She states that she is been nausea and vomited twice. No blood or emesis. Physical Examination: Vitals: 100.8, 102/83, 147, 22, 88% on room air which is hypoxic. General: Well-nourished and well-developed. Head: Normocephalic atraumatic. Neck: Supple, no lymphadenopathy. No JVD. Nontender. Cardiovascular: Tachycardic regular rhythm. No murmurs. Respiratory: No respiratory distress. Clear to auscultation bilaterally. Abdominal: Soft, nontender, nondistended, normal bowel sounds. No guarding, rebound, or peritoneal signs. Back: Nontender. Extremities: Nontender, 1+ pitting edema lower extremity bilaterally. Skin: Normal color, no rash. Neurologic: Alert and oriented ? 2. Cranial nerves II through XII are intact. Normal strength and sensation. Psych: Normal affect. Test Results: EKG is sinus tachycardia [address] changes and artifact. CBC is marked for a white count of 16.4 with 86 segmented neutrophils and 6 lymphocytes. Hemoglobin is 11.7. Lactic acid is 2.1. Sodium is 131, potassium is 5.9 (hemolysis) glucose of 152, creatinine 1.22. AST is 66. Coags are normal. UA shows leukocytes, nitrites, blood, greater than 100 white blood cells, 25-50 red blood cells, and 4+ bacteria. Chest x-ray shows mild cardiomegaly. Emergency Department Course and Treatment: Patient had an IV placed. She November 11 she had Pseudomonas that was only sensitive to aztreonam. October 15 she had E. coli that was resistant to Cipro and Levaquin. She was given Rocephin and aztreonam IV. Was given 3 L of normal saline. I reviewed her prior urine cultures. Treatment Plan: Patient was discussed with Dr. Montelongo. She will be admitted to the hospital for further relation treatment. Disposition: Admitted in improved, but serious condition. Impression: 1. Sepsis. 2. UTI with suprapubic catheter. 3. History of multidrug-resistant pseudomonal UTI. This note was generated with [employer] dictation software. It may contain incorrect words, spelling, and punctuation that were not noted in review of the chart prior to signing ED Disposition - Plan for ED Patient: Disposition: Acute [facility]
[2018-12-18] MEDS: Venlafaxine HCl 75 MG Tablet PO ×3 (06:45→21:44)
[2018-12-18] MEDS: Acetaminophen 325 MG Tablet 650 MG PO ×2 (06:45→13:30)
[2018-12-18] MEDS: Heparin Injection (Vial) 5,000 UNIT/ML VIAL 5000 UNIT SC ×3 (06:45→21:47)
[2018-12-18] MEDS: Cefazolin 1 GM/50 ML BAG IV ×3 (06:45→23:35)
[2018-12-18] MEDS: Gabapentin 600 MG Tablet PO ×3 (06:53→21:44)
[2018-12-18 06:55] LABS: Anion Gap 7 (5-15); BUN 18 mg/dL (7-18); BUN/Creat Ratio 16.2 RATIO (10-20); Calcium,Total 8.4 mg/dL (8.5-10.1); Chloride 104 mmol/L (98-107); Creatinine, Serum 1.11 mg/dL (0.55-1.02); EST Glomerular Filtration Rate 51 mL/min (>60); Est Glom Filt Rate - Afr Amer 62 mL/min (>60); Estimated Creatinine Clearance 44.55 ml/min; Glucose 113 mg/dL (74-106); Potassium 4.4 mmol/L (3.5-5.1); Sodium Level 137 mmol/L (136-145)
[2018-12-18 07:11] LABS: Bedside Glucose 116 mg/dL (70-110)
[2018-12-18 07:53] LABS: Absolute Lymphocyte Count 0.97 X10^3/ul (0.83-4.51); Absolute Neutrophil Count 9.8 X10^3/uL (2.0-7.7); Basophil# 0.02 X10^3/uL; Basophil% 0.2 % (0-1); Eosinophil# 0.02 X10^3/uL; Eosinophils% 0.2 % (0-5); Hematocrit 34.9 % (37-47); Hemoglobin 10.3 g/dl (12.0-15.0); Lymphocyte # 0.97 X10^3/ul (4.0); Lymphocyte % 8.5 % (19-41); Mean Corp Hgb Conc 29.5 g/gl (32-36); Mean Corpuscular Hgb 28.8 pg (27.0-32.0); Mean Corpuscular Volume 97.5 fL (81-99); Mean Platelet Vol. 10.3 fl (6.2-12.0); Monocyte# 0.61 X10^3/uL; Monocyte% 5.3 % (0-10); Neutrophil # 9.78 X10^3/uL (2.7-7.7); Neutrophil % 85.4 % (47-70); Platelet Count 226 K/mm3 (150-450); RBC Distribution Width CV 17.9 % (11.6-14.6); RBC Distribution Width SD 59.6 fl (35.1-43.9); Red Blood Count 3.58 M/mm3 (4.2-5.4); White Blood Count 11.5 K/mm3 (4.4-11.0)
[2018-12-18 07:57] LABS: POSITIVE COUNT NO; POSITIVE DIFFERENTIAL NO; POSITIVE MORPHOLOGY NO
[2018-12-18] MEDS: 0.9% Normal Saline 1,000 ML 100 ML IV (08:03)
[2018-12-18] MEDS: Metoprolol(XL)Succ 25 MG Tablet PO (10:03)
[2018-12-18] MEDS: Vitamin E 400 UNITS Capsule PO ×2 (10:03→21:50)
[2018-12-18] MEDS: Famotidine 20 MG Tablet PO ×2 (10:03→21:44)
[2018-12-18] MEDS: Cyanocobalamin 500 MCG Tablet 1000 MCG PO (10:03)
[2018-12-18] MEDS: Fluticasone 0.05% 1 SPRAY NASAL.SRY 2 SPRAY NASAL (10:03)
[2018-12-18] MEDS: DULoxetine Hcl 30 MG Capsule PO (10:03)
--- NOTE | 2018-12-18 10:17 | PCM.HP.ID ---
Problem List (1) Severe sepsis Status: Acute Reason for Consult: mdr uti Consulted by: Dr. Montelongo History of Present Illness: The patient is a 73 year old F with suprapubic catheter in place who presented to ED yesterday with sudden onset of confusion while at eye appt. She does not remember much of what happened. Sx associated with low grade fever. Urine has been cloudier recently due to decreased fluid intake. No leg pain or trauma. No congestion. No SOB. No abd pain. Frequently has some drainage and occasional odor around catheter site. Admitted over New Year's here, grew XDR PsA from urine cx, thought to be contaminant, improved without coverage with abx for that bacteria. This AM, feeling well, no complaints. Full ROS performed and neg except as noted above. - Medical History Past Medical History (Chronic Problems): Chronic Problems Debility (Chronic) Depression (Chronic) VITA (obstructive sleep apnea) (Chronic) Allergies/Adverse Reactions: Allergies adhesive tape Allergy (Verified 11/11/18 21:47) blisters Influenza Virus Vaccines Allergy (Verified 11/11/18 21:47) shortness of breath/severe wheezing iron Allergy (Verified 11/11/18 21:47) from IV form chest pressure and heart palpitations Sulfa (Sulfonamide Antibiotics) Allergy (Verified 11/11/18 21:47) Shortness of breath bactrim does not work for her-per pcp paperwork meloxicam [From Mobic] Adverse Reaction (Verified 11/11/18 21:47) gi upset seasonal allergies Allergy (Uncoded 11/11/18 21:47) Other Home Medications: Ambulatory Orders Medication Instructions Recorded DiphenhydrAMINE [Benadryl] 25 mg PO BID PRN PRN 09/30/13 Furosemide [Lasix] 20 mg PO TID 09/30/13 Pantoprazole Sodium [Protonix] 40 mg PO DAILY 09/30/13 Albuterol Inhaler [Ventolin Hfa] 2 puff INHALATION Q4H PRN PRN 10/30/18 Baclofen 10 mg PO TID PRN PRN 10/30/18 Cholecalciferol (VIT D3) [Vitamin 1,000 unit PO DAILY 10/30/18 D3] Cranberry Conc/Ascorbic Acid 1 each PO BID 10/30/18 [Cranberry Concentrate Softgel] Diphenoxylate/Atrop [Lomotil] 1 tablet PO 4X/DAY PRN PRN 10/30/18 Duloxetine Hcl [Cymbalta] 30 mg PO DAILY 10/30/18 Fluticasone 0.05% [Flonase Nasal 2 spray NASAL DAILY 10/30/18 [place]] Gabapentin [Neurontin] 600 mg PO TID 10/30/18 Guaifenesin [Mucinex] 1,200 mg PO BID PRN 10/30/18 Hydrocodone Bitart/Apap 5-325 1 tablet PO Q6H PRN PRN 10/30/18 [[place] 5/325] Lisinopril [Zestril] 10 mg PO DAILY 10/30/18 Metformin HCl [Glucophage] 500 mg PO BID 10/30/18 Metoprolol(XL)Succ [Toprol Xl 25 mg PO DAILY 10/30/18 (Beta [place])] Multivitamins,Ther W-Minerals 1 tablet PO 4X/DAY 10/30/18 [Multivitamin With Minerals] Mupirocin [Bactroban] 1 applicatio TOPICAL BID 10/30/18 Nystatin Powder [Mycostatin Powder] 1 applicatio TOPICAL BID PRN PRN 10/30/18 Oxybutynin Chloride [Ditropan Xl] 15 mg PO DAILY 10/30/18 Potassium (Otc) [Potassium OTC] 99 mg PO DAILY 10/30/18 Ranitidine [Zantac] 150 mg PO BID 10/30/18 Triamcinolone 0.1% Dental Pst 1 applicatio TOPICAL 4X/DAY 10/30/18 [Kenalog Dental Paste] Vitamin E 400 units PO BID 10/30/18 levETIRAcetam tablet [Keppra 500 mg PO QHS 10/30/18 tablet] Acetaminophen [Tylenol] 650 mg PO Q6H PRN PRN 12/17/18 Cyanocobalamin (Vitamin B-12) 1,000 mcg PO DAILY 12/17/18 [B-12] Guaifenesin 400 mg PO Q4H PRN PRN 12/17/18 Pravastatin [Pravachol] 20 mg PO QHS 12/17/18 Venlafaxine HCl [Effexor] 75 mg PO TID 12/17/18 - Social History Tobacco Use: non-smoker Vital Signs Temp Pulse Resp BP Pulse Ox 100.2 F H 94 18 109/46 L 98 12/18/18 10:00 12/18/18 10:03 12/18/18 10:00 12/18/18 10:00 12/18/18 10:00 Oxygen Flow Rate (L/min) 2 Oxygen Delivery Method Nasal Cannula Weight: 155.2 kg Body Mass Index (BMI) 53.6 Laboratory Tests Past 24 Hrs 12/17/18 12/17/18 12/17/18 14:30 14:30 14:30 WBC 16.4 H RBC 3.99 L Hgb 11.7 L Hct 37.7 MCV 94.5 MCH 29.3 MCHC 31.0 L RDW 17.9 H RDW Differential 60.6 H Plt Count 346 MPV 11.1 Immature Gran % (Auto) 0.400 Neut % (Auto) 86.0 H Lymph % (Auto) 5.8 L [place] % (Auto) 7.6 Eos % (Auto) 0.1 Baso % (Auto) 0.1 Absolute Neuts (auto) 14.1 H Absolute Lymphs (auto) 0.96 Total Counted Not Reportable PT Cancelled INR Cancelled APTT Cancelled Sodium 131 L Potassium 5.9 H Chloride 99 Carbon Dioxide 25.0 Anion Gap 7 BUN 17 Creatinine 1.22 H Estim Creat Clear Calc 40.53 Est GFR (MDRD) Af Amer 56 L Est GFR (MDRD) Non-Af 46 L BUN/Creatinine Ratio 13.9 Glucose 152 H Lactic Acid Calcium 9.1 Total Bilirubin 0.90 AST 66 H ALT 22 Alkaline Phosphatase 57 Total Protein 9.2 H Albumin 3.0 L Globulin 6.2 H Albumin/Globulin Ratio 0.5 L Urine Color Urine Clarity Urine pH Ur Specific [place] Urine Protein Urine Glucose (UA) Urine Ketones Urine Occult Blood Urine Nitrite Urine Bilirubin Urine Urobilinogen Ur Leukocyte Esterase Urine RBC Urine WBC Ur Squamous Epith Cells Urine Bacteria Urine Mucus 12/17/18 12/17/18 12/17/18 16:10 16:20 17:13 WBC RBC Hgb Hct MCV MCH MCHC RDW RDW Differential Plt Count MPV Immature Gran % (Auto) Neut % (Auto) Lymph % (Auto) [place] % (Auto) Eos % (Auto) Baso % (Auto) Absolute Neuts (auto) Absolute Lymphs (auto) Total Counted PT 14.6 INR 1.1 APTT 30.5 Sodium Potassium Chloride Carbon Dioxide Anion Gap BUN Creatinine Estim Creat Clear Calc Est GFR (MDRD) Af Amer Est GFR (MDRD) Non-Af BUN/Creatinine Ratio Glucose Lactic Acid 2.1 H Calcium Total Bilirubin AST ALT Alkaline Phosphatase Total Protein Albumin Globulin Albumin/Globulin Ratio Urine Color Yellow Urine Clarity Turbid Urine pH 6.5 Ur Specific [place] 1.010 Urine Protein 100 H Urine Glucose (UA) Normal Urine Ketones 5 H Urine Occult Blood 250 H Urine Nitrite Positive H Urine Bilirubin 3 H Urine Urobilinogen 4 H Ur Leukocyte Esterase 500 H Urine RBC 25-50 SEEN Urine WBC >100 SEEN Ur Squamous Epith Cells 0-5 SEEN Urine Bacteria 4+ Urine Mucus 0 SEEN 12/17/18 12/17/18 12/18/18 21:45 22:55 06:00 WBC RBC Hgb Hct MCV MCH MCHC RDW RDW Differential Plt Count MPV Immature Gran % (Auto) Neut % (Auto) Lymph % (Auto) [place] % (Auto) Eos % (Auto) Baso % (Auto) Absolute Neuts (auto) Absolute Lymphs (auto) Total Counted PT INR APTT Sodium 136 137 Potassium 4.1 4.4 Chloride 103 104 Carbon Dioxide 26.0 26.0 Anion Gap 7 7 BUN 17 18 Creatinine 1.07 H 1.11 H Estim Creat Clear Calc 46.22 44.55 Est GFR (MDRD) Af Amer 65 62 Est GFR (MDRD) Non-Af 54 L 51 L BUN/Creatinine Ratio 15.9 16.2 Glucose 105 113 H Lactic Acid 1.8 Calcium 7.9 L 8.4 L Total Bilirubin AST ALT Alkaline Phosphatase Total Protein Albumin Globulin Albumin/Globulin Ratio Urine Color Urine Clarity Urine pH Ur Specific [place] Urine Protein Urine Glucose (UA) Urine Ketones Urine Occult Blood Urine Nitrite Urine Bilirubin Urine Urobilinogen Ur Leukocyte Esterase Urine RBC Urine WBC Ur Squamous Epith Cells Urine Bacteria Urine Mucus 12/18/18 06:00 WBC 11.5 H RBC 3.58 L Hgb 10.3 L Hct 34.9 L MCV 97.5 MCH 28.8 MCHC 29.5 L RDW 17.9 H RDW Differential 59.6 H Plt Count 226 MPV 10.3 Immature Gran % (Auto) 0.400 Neut % (Auto) 85.4 H Lymph % (Auto) 8.5 L [place] % (Auto) 5.3 Eos % (Auto) 0.2 Baso % (Auto) 0.2 Absolute Neuts (auto) 9.8 H Absolute Lymphs (auto) 0.97 Total Counted Not Reportable PT INR APTT Sodium Potassium Chloride Carbon Dioxide Anion Gap BUN Creatinine Estim Creat Clear Calc Est GFR (MDRD) Af Amer Est GFR (MDRD) Non-Af BUN/Creatinine Ratio Glucose Lactic Acid Calcium Total Bilirubin AST ALT Alkaline Phosphatase Total Protein Albumin Globulin Albumin/Globulin Ratio Urine Color Urine Clarity Urine pH Ur Specific [place] Urine Protein Urine Glucose (UA) Urine Ketones Urine Occult Blood Urine Nitrite Urine Bilirubin Urine Urobilinogen Ur Leukocyte Esterase Urine RBC Urine WBC Ur Squamous Epith Cells Urine Bacteria Urine Mucus - Other Studies Radiology: [] reviewed Other Studies: [] Route of nutrition/ use of supplements: [] Nutritional Intake: [] IV Site: [] Henry Catheter: [] - Physical Exam General: Alert, Oriented x3, Cooperative, No apparent distress HEENT: Atraumatic, PERRLA, EOMI Neck: Supple, No Nodes Lungs: Clear to auscultation, Normal air movement Cardiovascular: Regular rate, Regular Rhythm, No murmurs Abdomen: Soft, Non Tender, Non-Distended, Obese Extremities: Edema Skin: Rash Present - Mild redness and warmth around R calf, non-tender, - - Suprapubic catheter with small around of skin breakdown and surrounding erythema. IV Site: Peripheral, without redness Musculoskeletal: No Tenderness to Palpation of Joints or Extremities Neurological: Cranial nerves II-XII grossly intact - Assessment/Plan Antibiotics: [] Assessment/Plan: [] Active and Suspected Problems Severe sepsis (Acute) Much improved. Source is not clear. Urine with pyuria, has h/o XDR PsA from recent cx; covered with aztreonam. If it grows again, will need send out testing for zerbaxa, colistin, and avycaz. Has had some clear sputum with cough, so viral URI could also be a source. RLE erythema, but not tender; doppler pending, covered with cefazolin for now. Suprapubic cath with some surrounding erythema, wound care is following and fungal component covered by fluconazole. Will follow, thank you, d/w Dr. Collazo.
--- NOTE | 2018-12-18 10:22 | NURSING ---
Was asked to see patient for intertrigo to the abdominal folds and around the suprapubic catheter. split gauze dressing removed from around the suprapubic cath. there was a moderate amount of light yellow/green drainage noted. mild malodor. there is some mild redness noted. cleansed abdominal fold with soap and water. pat dry. applied nystatin powder and placed a new split 4x4 gauze dressing. pt tolerated well. will continue to monitor.
[2018-12-18 12:11] LABS: Bedside Glucose 118 mg/dL (70-110)
--- NOTE | 2018-12-18 12:49 | PN_ITS ---
Addendum entered and electronically signed by DEDRICK Simmons 12/18/18 12:53: Code Visit Additional diagnosis: Chronic kidney disease stage III- At baseline. Original Note: <Latonya Ivy - Last Filed: 12/18/18 12:50> Patient Problems: Active and Suspected Problems Severe sepsis (Acute) Subjective: Patient seen and examined. Feels improved. Denies further fever overnight. No current complaints. - Physical Exam General: Alert, Oriented x3, Cooperative HEENT: Atraumatic, PERRLA, EOMI, Normocephalic Oral: Moist Mucosa Neck: Supple, No JVD, Negative Carotid Bruits Lungs: Clear to auscultation, Diminished Cardiovascular: Regular rate, Regular Rhythm, Normal S1, Normal S2, No murmurs Abdomen: Bowel Sounds Present, Soft, Non Tender, Non-Distended, Obese, - - Large pannus with intertrigo. Suprapubic catheter intact. Extremities: No clubbing, No cyanosis, No edema, Capillary Refill Less than 3 Seconds Skin: No rashes, No breakdown Musculoskeletal: No Tenderness to Palpation of Joints or Extremities Neurological: Cranial nerves II-XII grossly intact, Neuro grossly intact Psych/Mental Status: Normal Affect, Appropriate Vital Signs Temp Pulse Resp BP Pulse Ox 100.2 F H 94 18 109/46 L 98 12/18/18 10:00 12/18/18 10:03 12/18/18 10:00 12/18/18 10:00 12/18/18 10:00 Oxygen Flow Rate (L/min) 2 Oxygen Delivery Method Nasal Cannula Weight: 342 lb 2.519 oz Body Mass Index (BMI) 53.6 Intake and Output for Last 24 Hours 12/16/18 12/17/18 12/18/18 23:59 23:59 23:59 Intake Total 2327 / 2327 Output Total 2850 / 2850 Balance -523 / -523 Microbiology Past 72 Hours 12/17/18 16:10 Urine Culture - Preliminary Urine Catheter - Henry Presumptive E. coli Laboratory Tests Past 24 Hrs 12/17/18 12/17/18 12/17/18 14:30 14:30 14:30 WBC 16.4 H RBC 3.99 L Hgb 11.7 L Hct 37.7 MCV 94.5 MCH 29.3 MCHC 31.0 L RDW 17.9 H RDW Differential 60.6 H Plt Count 346 MPV 11.1 Immature Gran % (Auto) 0.400 Neut % (Auto) 86.0 H Lymph % (Auto) 5.8 L [place] % (Auto) 7.6 Eos % (Auto) 0.1 Baso % (Auto) 0.1 Absolute Neuts (auto) 14.1 H Absolute Lymphs (auto) 0.96 Total Counted Not Reportable PT Cancelled INR Cancelled APTT Cancelled Sodium 131 L Potassium 5.9 H Chloride 99 Carbon Dioxide 25.0 Anion Gap 7 BUN 17 Creatinine 1.22 H Estim Creat Clear Calc 40.53 Est GFR (MDRD) Af Amer 56 L Est GFR (MDRD) Non-Af 46 L BUN/Creatinine Ratio 13.9 Glucose 152 H Lactic Acid Calcium 9.1 Total Bilirubin 0.90 AST 66 H ALT 22 Alkaline Phosphatase 57 Total Protein 9.2 H Albumin 3.0 L Globulin 6.2 H Albumin/Globulin Ratio 0.5 L Urine Color Urine Clarity Urine pH Ur Specific [place] Urine Protein Urine Glucose (UA) Urine Ketones Urine Occult Blood Urine Nitrite Urine Bilirubin Urine Urobilinogen Ur Leukocyte Esterase Urine RBC Urine WBC Ur Squamous Epith Cells Urine Bacteria Urine Mucus 12/17/18 12/17/18 12/17/18 16:10 16:20 17:13 WBC RBC Hgb Hct MCV MCH MCHC RDW RDW Differential Plt Count MPV Immature Gran % (Auto) Neut % (Auto) Lymph % (Auto) [place] % (Auto) Eos % (Auto) Baso % (Auto) Absolute Neuts (auto) Absolute Lymphs (auto) Total Counted PT 14.6 INR 1.1 APTT 30.5 Sodium Potassium Chloride Carbon Dioxide Anion Gap BUN Creatinine Estim Creat Clear Calc Est GFR (MDRD) Af Amer Est GFR (MDRD) Non-Af BUN/Creatinine Ratio Glucose Lactic Acid 2.1 H Calcium Total Bilirubin AST ALT Alkaline Phosphatase Total Protein Albumin Globulin Albumin/Globulin Ratio Urine Color Yellow Urine Clarity Turbid Urine pH 6.5 Ur Specific [place] 1.010 Urine Protein 100 H Urine Glucose (UA) Normal Urine Ketones 5 H Urine Occult Blood 250 H Urine Nitrite Positive H Urine Bilirubin 3 H Urine Urobilinogen 4 H Ur Leukocyte Esterase 500 H Urine RBC 25-50 SEEN Urine WBC >100 SEEN Ur Squamous Epith Cells 0-5 SEEN Urine Bacteria 4+ Urine Mucus 0 SEEN 12/17/18 12/17/18 12/18/18 21:45 22:55 06:00 WBC RBC Hgb Hct MCV MCH MCHC RDW RDW Differential Plt Count MPV Immature Gran % (Auto) Neut % (Auto) Lymph % (Auto) [place] % (Auto) Eos % (Auto) Baso % (Auto) Absolute Neuts (auto) Absolute Lymphs (auto) Total Counted PT INR APTT Sodium 136 137 Potassium 4.1 4.4 Chloride 103 104 Carbon Dioxide 26.0 26.0 Anion Gap 7 7 BUN 17 18 Creatinine 1.07 H 1.11 H Estim Creat Clear Calc 46.22 44.55 Est GFR (MDRD) Af Amer 65 62 Est GFR (MDRD) Non-Af 54 L 51 L BUN/Creatinine Ratio 15.9 16.2 Glucose 105 113 H Lactic Acid 1.8 Calcium 7.9 L 8.4 L Total Bilirubin AST ALT Alkaline Phosphatase Total Protein Albumin Globulin Albumin/Globulin Ratio Urine Color Urine Clarity Urine pH Ur Specific [place] Urine Protein Urine Glucose (UA) Urine Ketones Urine Occult Blood Urine Nitrite Urine Bilirubin Urine Urobilinogen Ur Leukocyte Esterase Urine RBC Urine WBC Ur Squamous Epith Cells Urine Bacteria Urine Mucus 12/18/18 06:00 WBC 11.5 H RBC 3.58 L Hgb 10.3 L Hct 34.9 L MCV 97.5 MCH 28.8 MCHC 29.5 L RDW 17.9 H RDW Differential 59.6 H Plt Count 226 MPV 10.3 Immature Gran % (Auto) 0.400 Neut % (Auto) 85.4 H Lymph % (Auto) 8.5 L [place] % (Auto) 5.3 Eos % (Auto) 0.2 Baso % (Auto) 0.2 Absolute Neuts (auto) 9.8 H Absolute Lymphs (auto) 0.97 Total Counted Not Reportable PT INR APTT Sodium Potassium Chloride Carbon Dioxide Anion Gap BUN Creatinine Estim Creat Clear Calc Est GFR (MDRD) Af Amer Est GFR (MDRD) Non-Af BUN/Creatinine Ratio Glucose Lactic Acid Calcium Total Bilirubin AST ALT Alkaline Phosphatase Total Protein Albumin Globulin Albumin/Globulin Ratio Urine Color Urine Clarity Urine pH Ur Specific [place] Urine Protein Urine Glucose (UA) Urine Ketones Urine Occult Blood Urine Nitrite Urine Bilirubin Urine Urobilinogen Ur Leukocyte Esterase Urine RBC Urine WBC Ur Squamous Epith Cells Urine Bacteria Urine Mucus POC Glucose 12/18/18 12/18/18 12/17/18 11:53 06:43 21:09 POC Glucose 118 H 116 H 75 Medical Necessity - Tobacco Use Smoking Status: Never smoker Assessment/Plan All Active Problems Severe sepsis (Acute) Dehydration (Acute) Sepsis (Ruled-out) Acute metabolic encephalopathy (Acute) MICHAELLE (acute kidney injury) (Acute) Acute cystitis (Ruled-out) Suprapubic catheter dysfunction (Acute) UTI (urinary tract infection) (Acute) 1. Severe sepsis suspected secondary to acute suprapubic catheter associated complicated presumptive E. coli UTI- ID following. Patient has a history of multidrug-resistant cultures. Purulent drainage from suprapubic catheter site on admission. Urine culture preliminary showing presumptive E. coli. Continue Aztreonam and IV cefazolin. Leukocytosis improved. Continues to have low-grade fever. 2. Right lower extremity cellulitis, mild-duplex ultrasound right lower extremity to rule out DVT. Continue antibiotic therapy as noted above. Continue IV cefazolin as noted above. 3. Severe abdominal wall pannus with candidal/fungal appearance intertrigo- continue nystatin powder, absorbent dressing to reduce moisture, Diflucan 200 mg p.o. daily. 4. Hyperkalemia-resolved. 5. Hyponatremia-suspected secondary to volume depletion. Resolved. 6. Chronic diastolic CHF-Echo October 2018 with EF 75%, stage I diastolic dysfunction. Lisinopril and Lasix regimen on hold secondary to #1. 7. Hypertension-continue metoprolol. Lisinopril and Lasix regimen on hold given hypotension on admission. 8. Hyperlipidemia-continue statin. 9. Type 2 diabetes mellitus-oral regimen on hold. Accu-Cheks ACHS with sliding scale insulin. 10. VITA-continue BiPAP regimen. 11. GERD-continue Protonix/Zantac. 12. Depression-continue home Cymbalta, Effexor regimen. 13. Super morbid obesity-encouraged diet lifestyle modifications. DVT prophylaxis-heparin subcu This patient was seen by DEDRICK Simmons under the supervision of Dr. Collazo. <Luís Collazo - Last Filed: 12/18/18 17:11> Subjective: Feels good and better, despite still having fevers. - Physical Exam General: Oriented x3, Cooperative HEENT: Atraumatic, Normocephalic Oral: Moist Mucosa Neck: No Nodes, Thyroid Normal Size and Texture Lungs: Clear to auscultation, Normal air movement, No rhonchi, No wheeze Cardiovascular: Regular rate, Regular Rhythm, Normal S1, Normal S2, No murmurs Abdomen: Bowel Sounds Present, Soft, Non Tender, Non-Distended, Obese, - Extremities: No clubbing, No edema Skin: No rashes, No breakdown Vital Signs Temp Pulse Resp BP Pulse Ox 38.1 C H 94 18 114/61 94 12/18/18 15:37 12/18/18 15:37 12/18/18 15:37 12/18/18 15:37 12/18/18 15:37 Oxygen Flow Rate (L/min) 3 Oxygen Delivery Method Room Air Weight: 155.2 kg Body Mass Index (BMI) 53.6 Intake and Output for Last 24 Hours 12/16/18 12/17/18 12/18/18 23:59 23:59 23:59 Intake Total 2327 / 2327 Output Total 2850 / 2850 Balance -523 / -523 Microbiology Past 72 Hours 12/17/18 16:10 Urine Culture - Preliminary Urine Catheter - Henry Presumptive E. coli Laboratory Tests Past 24 Hrs 12/17/18 12/17/18 12/17/18 17:13 21:45 22:55 WBC RBC Hgb Hct MCV MCH MCHC RDW RDW Differential Plt Count MPV Immature Gran % (Auto) Neut % (Auto) Lymph % (Auto) [place] % (Auto) Eos % (Auto) Baso % (Auto) Absolute Neuts (auto) Absolute Lymphs (auto) Total Counted Sodium 136 Potassium 4.1 Chloride 103 Carbon Dioxide 26.0 Anion Gap 7 BUN 17 Creatinine 1.07 H Estim Creat Clear Calc 46.22 Est GFR (MDRD) Af Amer 65 Est GFR (MDRD) Non-Af 54 L BUN/Creatinine Ratio 15.9 Glucose 105 Lactic Acid 2.1 H 1.8 Calcium 7.9 L 12/18/18 12/18/18 06:00 06:00 WBC 11.5 H RBC 3.58 L Hgb 10.3 L Hct 34.9 L MCV 97.5 MCH 28.8 MCHC 29.5 L RDW 17.9 H RDW Differential 59.6 H Plt Count 226 MPV 10.3 Immature Gran % (Auto) 0.400 Neut % (Auto) 85.4 H Lymph % (Auto) 8.5 L [place] % (Auto) 5.3 Eos % (Auto) 0.2 Baso % (Auto) 0.2 Absolute Neuts (auto) 9.8 H Absolute Lymphs (auto) 0.97 Total Counted Not Reportable Sodium 137 Potassium 4.4 Chloride 104 Carbon Dioxide 26.0 Anion Gap 7 BUN 18 Creatinine 1.11 H Estim Creat Clear Calc 44.55 Est GFR (MDRD) Af Amer 62 Est GFR (MDRD) Non-Af 51 L BUN/Creatinine Ratio 16.2 Glucose 113 H Lactic Acid Calcium 8.4 L POC Glucose 12/18/18 12/18/18 12/17/18 11:53 06:43 21:09 POC Glucose 118 H 116 H 75 Assessment/Plan Patient seen and examined independently. Data reviewed. I agree with the above note by the nurse practitioner. 1. Severe sepsis Present on arrival Secondary to UTI versus URI 2. Suspected UTI History of multidrug-resistant organism Culture from the fourth thus far growing out presumptive E. coli, sensitivities pending Infectious disease on consultation Possible that the urine may be dirty from the chronic catheter that the patient has. If indeed does have a urinary tract infection is certainly would be a catheter associated urinary tract infection Code Visit Inpatient E&M: 13556 Subs Hosp L2
--- NOTE | 2018-12-18 13:04 | CASEMGMT ---
Assessment- SW spoke with patient regarding home situation and any possible d/c needs. Living situation- Patient lives alone in 1 story home with a ramp entrance. PCP: Dr Chakraborty Specialists: Urologist [facility]rology Pharmacy: DME: sit to stand lift, power wheelchair, shower chair, grab bars, hospital bed, medical alert, high toilet, and O2 from [facility] ADL's/IADL's: Patient is mostly able to make her meals from her power wc. She is able to manage her own medications. She gets help with dressing, bathing, transportation, and transferring. Past SNF/rehab: She has been to [facility] [place] Past HH: She has had [facility] HH LW: Yes and it is on file POA: Yes and it is on file. Her sister, Esperanza is her healthcare POA. Plan: Patient has private duty aides that assist her throughout the day. She anticipates returning home with no needs. She said if she absolutely had to go somewhere she would go to [facility] again. However, her first choice is home. ELIAS and RN CM to follow Ashwini BONILLA ZIGZAG APPLIQUER
[2018-12-18] MEDS: Baclofen 10 MG Tablet PO (13:30)
[2018-12-18 17:16] LABS: Bedside Glucose 119 mg/dL (70-110)
[2018-12-18] MEDS: Pravastatin 20 MG Tablet PO (21:44)
[2018-12-18] MEDS: levETIRAcetam 500 MG Tablet PO (21:44)
[2018-12-18] MEDS: 0.9% NaCl Peripheral Flush Adult/Peds IV (21:50)
[2018-12-18] MEDS: Fluconazole 100 MG Tablet 200 MG PO (21:56)
[2018-12-18 23:06] LABS: Bedside Glucose 94 mg/dL (70-110)
[2018-12-19 03:19] VITALS: BP 152/73; PULSE 94; RESP 12; TEMP 36.2; O2SAT 95
[2018-12-19] MEDS: Heparin Injection (Vial) 5,000 UNIT/ML VIAL 5000 UNIT SC (05:59)
[2018-12-19] MEDS: Gabapentin 600 MG Tablet PO (05:59)
[2018-12-19] MEDS: Venlafaxine HCl 75 MG Tablet PO (05:59)
[2018-12-19] MEDS: Cefazolin 1 GM/50 ML BAG IV (05:59)
[2018-12-19 06:36] LABS: Bedside Glucose 95 mg/dL (70-110)
[2018-12-19 06:52] VITALS: O2SAT 97
[2018-12-19 10:00] VITALS: BP 110/61; PULSE 92; RESP 18; TEMP 37.4; O2SAT 98
[2018-12-19] MEDS: Fluticasone 0.05% 1 SPRAY NASAL.SRY 2 SPRAY NASAL (10:41)
[2018-12-19] MEDS: Vitamin E 400 UNITS Capsule PO (10:42)
[2018-12-19 10:56] VITALS: BP 110/61; PULSE 92
[2018-12-19] MEDS: Metoprolol(XL)Succ 25 MG Tablet PO (10:56)
[2018-12-19] MEDS: Menthol/Lanolin/Calamine/Znox 113 GM Tube 1 APPLIC TOPICAL (10:57)
[2018-12-19] MEDS: Cyanocobalamin 500 MCG Tablet 1000 MCG PO (10:57)
[2018-12-19] MEDS: Famotidine 20 MG Tablet PO (10:57)
[2018-12-19] MEDS: DULoxetine Hcl 30 MG Capsule PO (11:05)
--- NOTE | 2018-12-19 11:28 | NURSING ---
Less redness noted to the abdominal folds today. TONI Simon stated that patient did have some urine leakage from the suprapubic cath this am. nystatin applied to folds as ordered. new split gauze placed around suprapubic cath.
--- NOTE | 2018-12-19 11:48 | PCM.DC ---
- Discharge Diagnoses Current Active Problems: Current Active and Chronic Problems Severe sepsis (Acute) You will use the following diet at home:: Calorie/Carbohydrate Controlled (specify 1200, 1400, etc), Cardiac Discharge Activity: Return to Normal Activity Call your doctor if you observe: Fever of 101 or Higher, Shortness of breath, Dizziness, Fainting spells Allergies/Adverse Reactions: Allergies adhesive tape Allergy (Verified 11/11/18 21:47) blisters Influenza Virus Vaccines Allergy (Verified 11/11/18 21:47) shortness of breath/severe wheezing iron Allergy (Verified 11/11/18 21:47) from IV form chest pressure and heart palpitations Sulfa (Sulfonamide Antibiotics) Allergy (Verified 11/11/18 21:47) Shortness of breath bactrim does not work for her-per pcp paperwork meloxicam [From Mobic] Adverse Reaction (Verified 11/11/18 21:47) gi upset seasonal allergies Allergy (Uncoded 11/11/18 21:47) Other Medications to take at Discharge DiphenhydrAMINE [Benadryl] 25 mg PO BID PRN PRN 09/30/13 Furosemide [Lasix] 20 mg PO TID 09/30/13 Pantoprazole Sodium [Protonix] 40 mg PO DAILY 09/30/13 Albuterol Inhaler [Ventolin Hfa] 2 puff INHALATION Q4H PRN PRN 10/30/18 Baclofen 10 mg PO TID PRN PRN 10/30/18 Cholecalciferol (VIT D3) [Vitamin D3] 1,000 unit PO DAILY 10/30/18 Cranberry Conc/Ascorbic Acid [Cranberry Concentrate Softgel] 1 each PO BID 10/30/18 Diphenoxylate/Atrop [Lomotil] 1 tablet PO 4X/DAY PRN PRN 10/30/18 Duloxetine Hcl [Cymbalta] 30 mg PO DAILY 10/30/18 Fluticasone 0.05% [Flonase Nasal [place]] 2 spray NASAL DAILY 10/30/18 Gabapentin [Neurontin] 600 mg PO TID 10/30/18 Guaifenesin [Mucinex] 1,200 mg PO BID PRN 10/30/18 Hydrocodone Bitart/Apap 5-325 [[place] 5/325] 1 tablet PO Q6H PRN PRN 10/30/18 Lisinopril [Zestril] 10 mg PO DAILY 10/30/18 Metformin HCl [Glucophage] 500 mg PO BID 10/30/18 Metoprolol(XL)Succ [Toprol Xl (Beta [place])] 25 mg PO DAILY 10/30/18 Multivitamins,Ther W-Minerals [Multivitamin With Minerals] 1 tablet PO 4X/DAY 10/30/18 Mupirocin [Bactroban] 1 applicatio TOPICAL BID 10/30/18 Nystatin Powder [Mycostatin Powder] 1 applicatio TOPICAL BID PRN PRN 10/30/18 Oxybutynin Chloride [Ditropan Xl] 15 mg PO DAILY 10/30/18 Potassium (Otc) [Potassium OTC] 99 mg PO DAILY 10/30/18 Ranitidine [Zantac] 150 mg PO BID 10/30/18 Triamcinolone 0.1% Dental Pst [Kenalog Dental Paste] 1 applicatio TOPICAL 4X/DAY 10/30/18 Vitamin E 400 units PO BID 10/30/18 levETIRAcetam tablet [Keppra tablet] 500 mg PO QHS 10/30/18 Acetaminophen [Tylenol] 650 mg PO Q6H PRN PRN 12/17/18 Cyanocobalamin (Vitamin B-12) [B-12] 1,000 mcg PO DAILY 12/17/18 Guaifenesin 400 mg PO Q4H PRN PRN 12/17/18 Pravastatin [Pravachol] 20 mg PO QHS 12/17/18 Venlafaxine HCl [Effexor] 75 mg PO TID 12/17/18 Cephalexin [Keflex] 500 mg PO Q12 #12 capsule 12/19/18 The following prescriptions were given: Cephalexin [Keflex] 500 mg PO Q12 #12 capsule Primary Care Physician: Noy Chakraborty MD [Primary Care Provider] - Please follow up with your Primary Care Physician in: 1 Week Test Results: Test results from this visit will be discussed in further detail at your follow-up appointment, if applicable. Please Follow Up With: Gamal Rudolph When: As scheduled Proposed Discharge Date: 12/19/18
--- NOTE | 2018-12-19 12:06 | PCM.DC.SUM ---
<Latonya Ivy - Last Filed: 12/19/18 12:13> Discharge Date and Diagnosis Date of Admission: 12/17/18 Date of Discharge: 12/19/18 - Primary Discharge Diagnosis Active and Suspected Problems 1. Severe sepsis suspected secondary to acute suprapubic catheter associated complicated E. coli UTI 2. Right lower extremity cellulitis, mild 3. 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 Hyperkalemia 5. Hyponatremia 6. Chronic diastolic CHF 7. Hypertension 8. Hyperlipidemia 9. Type 2 diabetes mellitus 10. VITA 11. GERD 12. Depression 13. Super morbid obesity 14. Chronic kidney disease stage III - Secondary Discharge Diagnosis Chronic Problems Debility (Chronic) Depression (Chronic) VITA (obstructive sleep apnea) (Chronic) Hospital Course and Treatment Imaging Results: Diagnostic Data Chest X-Ray 12/17/18 15:10 IMPRESSION: Mild cardiomegaly. Electronically Signed: Joaquin Douglass MD at 15:42 EST , Service support , Consultations 12/17/18 22:00 Consult: Onc/Wound/advisory services associate Routine Comment: Suprapubic catheter manisha-care, severe intertrigo Dr. Flores- ID Operations: None Procedures: None Summary of Care Provided: The patient is a 73 year old F admitted 12/17/18 due to fever, lethargy. 1. Severe sepsis suspected secondary to acute suprapubic catheter associated complicated E. coli UTI- ID following. Patient has a history of multidrug-resistant cultures. Purulent drainage from suprapubic catheter site on admission. Urine culture preliminary showing E. coli, pansensitive. Received aztreonam and IV cefazolin during admission. Discharged on Keflex 500 mg twice daily for 6 days. Follow-up with primary care physician in 1 week. Follow-up with urology for routine catheter change as scheduled. 2. Right lower extremity cellulitis, mild-duplex ultrasound right lower extremity negative for DVT. Continue Keflex at discharge as noted above. Unclear if this is truly cellulitis or chronic skin changes. 3. 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 4. Hyperkalemia-resolved. 5. Hyponatremia-suspected secondary to volume depletion. Resolved. 6. Chronic diastolic CHF-Echo October 2018 with EF 75%, stage I diastolic dysfunction. 7. Hypertension-continue metoprolol, Lisinopril and Lasix regimen. 8. Hyperlipidemia-continue statin. 9. Type 2 diabetes mellitus-continue home regimen. 10. VITA-continue BiPAP regimen. 11. GERD-continue Protonix/Zantac. 12. Depression-continue home Cymbalta, Effexor regimen. 13. Super morbid obesity-encouraged diet lifestyle modifications. 14. Chronic kidney disease stage III-at baseline. General: Alert, Oriented x3, Cooperative HEENT: Atraumatic, PERRLA, EOMI, Normocephalic Oral: Moist Mucosa Neck: Supple, No JVD, Negative Carotid Bruits Lungs: Clear to auscultation, Diminished Cardiovascular: Regular rate, Regular Rhythm, Normal S1, Normal S2, No murmurs Abdomen: Bowel Sounds Present, Soft, Non Tender, Non-Distended, Obese, - - Large pannus with intertrigo. Suprapubic catheter intact. Extremities: No clubbing, No cyanosis, No edema, Capillary Refill Less than 3 Seconds Skin: No rashes, No breakdown Musculoskeletal: No Tenderness to Palpation of Joints or Extremities Neurological: Cranial nerves II-XII grossly intact, Neuro grossly intact Psych/Mental Status: Normal Affect, Appropriate Patient seen and examined prior to discharge. Physical assessment as noted above. Patient is stable for discharge with follow up recommendations as noted above. This patient was seen by DEDRICK Simmons under the supervision of Dr. Collazo. - Physical Exam Vital Signs Temp Pulse Resp BP Pulse Ox 99.3 F H 92 18 110/61 98 12/19/18 10:00 12/19/18 10:56 12/19/18 10:00 12/19/18 10:56 12/19/18 10:00 Oxygen Flow Rate (L/min) 2 Oxygen Delivery Method Room Air Weight: 342 lb 2.519 oz Body Mass Index (BMI) 53.6 Intake and Output for Last 24 Hours 12/17/18 12/18/18 12/19/18 23:59 23:59 23:59 Intake Total 3811 / 3811 741 / 741 Output Total 3950 / 3950 1400 / 1400 Balance -139 / -139 -659 / -659 Microbiology Past 72 Hours 12/17/18 16:10 Urine Culture - Final Urine Catheter - Henry Presumptive E. coli POC Glucose 12/19/18 12/18/18 12/18/18 06:08 21:53 16:58 POC Glucose 95 94 119 H 12/18/18 11:53 POC Glucose 118 H Discharge Diet: Low fat/ Low Cholesterol, 1800 Calorie Control Diet, Carb Control Diet Discharge Activity: Return to Normal Activity Call your doctor if you observe: Fever of 101 or Higher, Shortness of breath, Dizziness, Fainting spells Home Medications: Medications to take at Discharge DiphenhydrAMINE [Benadryl] 25 mg PO BID PRN PRN 09/30/13 Furosemide [Lasix] 20 mg PO TID 09/30/13 Pantoprazole Sodium [Protonix] 40 mg PO DAILY 09/30/13 Albuterol Inhaler [Ventolin Hfa] 2 puff INHALATION Q4H PRN PRN 10/30/18 Baclofen 10 mg PO TID PRN PRN 10/30/18 Cholecalciferol (VIT D3) [Vitamin D3] 1,000 unit PO DAILY 10/30/18 Cranberry Conc/Ascorbic Acid [Cranberry Concentrate Softgel] 1 each PO BID 10/30/18 Diphenoxylate/Atrop [Lomotil] 1 tablet PO 4X/DAY PRN PRN 10/30/18 Duloxetine Hcl [Cymbalta] 30 mg PO DAILY 10/30/18 Fluticasone 0.05% [Flonase Nasal [place]] 2 spray NASAL DAILY 10/30/18 Gabapentin [Neurontin] 600 mg PO TID 10/30/18 Guaifenesin [Mucinex] 1,200 mg PO BID PRN 10/30/18 Hydrocodone Bitart/Apap 5-325 [[place] 5/325] 1 tablet PO Q6H PRN PRN 10/30/18 Lisinopril [Zestril] 10 mg PO DAILY 10/30/18 Metformin HCl [Glucophage] 500 mg PO BID 10/30/18 Metoprolol(XL)Succ [Toprol Xl (Beta [place])] 25 mg PO DAILY 10/30/18 Multivitamins,Ther W-Minerals [Multivitamin With Minerals] 1 tablet PO 4X/DAY 10/30/18 Mupirocin [Bactroban] 1 applicatio TOPICAL BID 10/30/18 Nystatin Powder [Mycostatin Powder] 1 applicatio TOPICAL BID PRN PRN 10/30/18 Oxybutynin Chloride [Ditropan Xl] 15 mg PO DAILY 10/30/18 Potassium (Otc) [Potassium OTC] 99 mg PO DAILY 10/30/18 Ranitidine [Zantac] 150 mg PO BID 10/30/18 Triamcinolone 0.1% Dental Pst [Kenalog Dental Paste] 1 applicatio TOPICAL 4X/DAY 10/30/18 Vitamin E 400 units PO BID 10/30/18 levETIRAcetam tablet [Keppra tablet] 500 mg PO QHS 10/30/18 Acetaminophen [Tylenol] 650 mg PO Q6H PRN PRN 12/17/18 Cyanocobalamin (Vitamin B-12) [B-12] 1,000 mcg PO DAILY 12/17/18 Guaifenesin 400 mg PO Q4H PRN PRN 12/17/18 Pravastatin [Pravachol] 20 mg PO QHS 12/17/18 Venlafaxine HCl [Effexor] 75 mg PO TID 12/17/18 Cephalexin [Keflex] 500 mg PO Q12 #12 capsule 12/19/18 Following Prescrptions Were Given to Patient: Cephalexin [Keflex] 500 mg PO Q12 #12 capsule Primary Care Physician: Noy Chakraborty MD [Primary Care Provider] - Please follow up with your Primary Care Physician in: 1 Week Please Follow Up With: Gamal Rudolph When: As scheduled Disposition: Home Minutes spent on discharge:: 35 Patient Condition:: Stable Medical Necessity - Tobacco Use Smoking Status: Never smoker Meaningful Use Info Meaningful Use Diagnoses (Choose all that apply): None applicable <Luís Collazo - Last Filed: 12/19/18 15:02> Discharge Date and Diagnosis - Secondary Discharge Diagnosis Chronic Problems Debility (Chronic) Depression (Chronic) VITA (obstructive sleep apnea) (Chronic) Hospital Course and Treatment Consultations 12/17/18 22:00 Consult: Onc/Wound/advisory services associate Routine Comment: Suprapubic catheter manisha-care, severe intertrigo Operations: None Procedures: None Summary of Care Provided: Patient seen and examined independently. Data reviewed. I agree with the above note by the nurse practitioner. The patient is a 73 year old F presents with fever and lethargy. Patient was found to have an abnormal urinalysis concerning for urinary tract infection. Given patient's history of multidrug-resistant Pseudomonas, patient was started on broad-spectrum antibiotics. Culture came back showing E. coli that was sensitive and not E BSL spectrum. Patient was discharged with Keflex. Also there is some concern for right lower extremity cellulitis. Patient actually did have cellulitis or not but overall is improved and does not any further management. Patient returned home with her aide. [] - Physical Exam General: Alert, Cooperative, No apparent distress HEENT: Atraumatic, Normocephalic Psych/Mental Status: Normal Affect, Appropriate Vital Signs Temp Pulse Resp BP Pulse Ox 37.4 C H 92 18 110/61 98 12/19/18 10:00 12/19/18 10:56 12/19/18 10:00 12/19/18 10:56 12/19/18 10:00 Oxygen Flow Rate (L/min) 2 Oxygen Delivery Method Room Air Weight: 155.2 kg Body Mass Index (BMI) 53.6 Intake and Output for Last 24 Hours 12/17/18 12/18/18 12/19/18 23:59 23:59 23:59 Intake Total 3811 / 3811 741 / 741 Output Total 3950 / 3950 1400 / 1400 Balance -139 / -139 -659 / -659 Microbiology Past 72 Hours 12/17/18 15:00 Blood Culture - Preliminary Blood Culture (Wb) - Right Forearm No growth in 48 hours. 12/17/18 14:30 Blood Culture - Preliminary Blood Culture (Wb) - Left Forearm No growth in 48 hours. 12/17/18 16:10 Urine Culture - Final Urine Catheter - Henry Presumptive E. coli POC Glucose 12/19/18 12/19/18 12/18/18 12:10 06:08 21:53 POC Glucose 118 H 95 94 12/18/18 16:58 POC Glucose 119 H Discharge Diet: Low fat/ Low Cholesterol, 1800 Calorie Control Diet, Carb Control Diet Discharge Activity: Return to Normal Activity Call your doctor if you observe: Fever of 101 or Higher, Shortness of breath, Dizziness, Fainting spells Disposition: Home Minutes spent on discharge:: 35 Patient Condition:: Stable Medical Necessity - Tobacco Use Smoking Status: Never smoker Meaningful Use Info Meaningful Use Diagnoses (Choose all that apply): None applicable Code Visit Inpatient E&M: 17331 Disch Hosp
--- NOTE | 2018-12-19 12:10 | DS.PCM_ITS ---
<Latonya Ivy - Last Filed: 12/19/18 12:13> Discharge Date and Diagnosis Date of Admission: 12/17/18 Date of Discharge: 12/19/18 - Primary Discharge Diagnosis Active and Suspected Problems 1. Severe sepsis suspected secondary to acute suprapubic catheter associated complicated E. coli UTI 2. Right lower extremity cellulitis, mild 3. 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 Hyperkalemia 5. Hyponatremia 6. Chronic diastolic CHF 7. Hypertension 8. Hyperlipidemia 9. Type 2 diabetes mellitus 10. VITA 11. GERD 12. Depression 13. Super morbid obesity 14. Chronic kidney disease stage III - Secondary Discharge Diagnosis Chronic Problems Debility (Chronic) Depression (Chronic) VITA (obstructive sleep apnea) (Chronic) Hospital Course and Treatment Imaging Results: Diagnostic Data Chest X-Ray 12/17/18 15:10 IMPRESSION: Mild cardiomegaly. Electronically Signed: Joaquin Douglass MD at 15:42 EST , Service support , Consultations 12/17/18 22:00 Consult: Onc/Wound/drier operator helper Routine Comment: Suprapubic catheter manisha-care, severe intertrigo Dr. Flores- ID Operations: None Procedures: None Summary of Care Provided: The patient is a 73 year old F admitted 12/17/18 due to fever, lethargy. 1. Severe sepsis suspected secondary to acute suprapubic catheter associated complicated E. coli UTI- ID following. Patient has a history of multidrug- resistant cultures. Purulent drainage from suprapubic catheter site on admission. Urine culture preliminary showing E. coli, pansensitive. Received aztreonam and IV cefazolin during admission. Discharged on Keflex 500 mg twice daily for 6 days. Follow-up with primary care physician in 1 week. Follow-up with urology for routine catheter change as scheduled. 2. Right lower extremity cellulitis, mild-duplex ultrasound right lower extremity negative for DVT. Continue Keflex at discharge as noted above. Unclear if this is truly cellulitis or chronic skin changes. 3. 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 4. Hyperkalemia-resolved. 5. Hyponatremia-suspected secondary to volume depletion. Resolved. 6. Chronic diastolic CHF-Echo October 2018 with EF 75%, stage I diastolic dysfunction. 7. Hypertension-continue metoprolol, Lisinopril and Lasix regimen. 8. Hyperlipidemia-continue statin. 9. Type 2 diabetes mellitus-continue home regimen. 10. VITA-continue BiPAP regimen. 11. GERD-continue Protonix/Zantac. 12. Depression-continue home Cymbalta, Effexor regimen. 13. Super morbid obesity-encouraged diet lifestyle modifications. 14. Chronic kidney disease stage III-at baseline. General: Alert, Oriented x3, Cooperative HEENT: Atraumatic, PERRLA, EOMI, Normocephalic Oral: Moist Mucosa Neck: Supple, No JVD, Negative Carotid Bruits Lungs: Clear to auscultation, Diminished Cardiovascular: Regular rate, Regular Rhythm, Normal S1, Normal S2, No murmurs Abdomen: Bowel Sounds Present, Soft, Non Tender, Non-Distended, Obese, - - Large pannus with intertrigo. Suprapubic catheter intact. Extremities: No clubbing, No cyanosis, No edema, Capillary Refill Less than 3 Seconds Skin: No rashes, No breakdown Musculoskeletal: No Tenderness to Palpation of Joints or Extremities Neurological: Cranial nerves II-XII grossly intact, Neuro grossly intact Psych/Mental Status: Normal Affect, Appropriate Patient seen and examined prior to discharge. Physical assessment as noted above. Patient is stable for discharge with follow up recommendations as noted above. This patient was seen by DEDRICK Simmons under the supervision of Dr. Collazo. - Physical Exam Vital Signs Temp Pulse Resp BP Pulse Ox 99.3 F H 92 18 110/61 98 12/19/18 10:00 12/19/18 10:56 12/19/18 10:00 12/19/18 10:56 12/19/18 10:00 Oxygen Flow Rate (L/min) 2 Oxygen Delivery Method Room Air Weight: 342 lb 2.519 oz Body Mass Index (BMI) 53.6 Intake and Output for Last 24 Hours 12/17/18 12/18/18 12/19/18 23:59 23:59 23:59 Intake Total 3811 / 3811 741 / 741 Output Total 3950 / 3950 1400 / 1400 Balance -139 / -139 -659 / -659 Microbiology Past 72 Hours 12/17/18 16:10 Urine Culture - Final Urine Catheter - Henry Presumptive E. coli POC Glucose 12/19/18 12/18/18 12/18/18 06:08 21:53 16:58 POC Glucose 95 94 119 H 12/18/18 11:53 POC Glucose 118 H Discharge Diet: Low fat/ Low Cholesterol, 1800 Calorie Control Diet, Carb Control Diet Discharge Activity: Return to Normal Activity Call your doctor if you observe: Fever of 101 or Higher, Shortness of breath, Dizziness, Fainting spells Home Medications: Medications to take at Discharge DiphenhydrAMINE [Benadryl] 25 mg PO BID PRN PRN 09/30/13 Furosemide [Lasix] 20 mg PO TID 09/30/13 Pantoprazole Sodium [Protonix] 40 mg PO DAILY 09/30/13 Albuterol Inhaler [Ventolin Hfa] 2 puff INHALATION Q4H PRN PRN 10/30/18 Baclofen 10 mg PO TID PRN PRN 10/30/18 Cholecalciferol (VIT D3) [Vitamin D3] 1,000 unit PO DAILY 10/30/18 Cranberry Conc/Ascorbic Acid [Cranberry Concentrate Softgel] 1 each PO BID 10/30/18 Diphenoxylate/Atrop [Lomotil] 1 tablet PO 4X/DAY PRN PRN 10/30/18 Duloxetine Hcl [Cymbalta] 30 mg PO DAILY 10/30/18 Fluticasone 0.05% [Flonase Nasal [place]] 2 spray NASAL DAILY 10/30/18 Gabapentin [Neurontin] 600 mg PO TID 10/30/18 Guaifenesin [Mucinex] 1,200 mg PO BID PRN 10/30/18 Hydrocodone Bitart/Apap 5-325 [[place] 5/325] 1 tablet PO Q6H PRN PRN 10/30/18 Lisinopril [Zestril] 10 mg PO DAILY 10/30/18 Metformin HCl [Glucophage] 500 mg PO BID 10/30/18 Metoprolol(XL)Succ [Toprol Xl (Beta [place])] 25 mg PO DAILY 10/30/18 Multivitamins,Ther W-Minerals [Multivitamin With Minerals] 1 tablet PO 4X/DAY 10/30/18 Mupirocin [Bactroban] 1 applicatio TOPICAL BID 10/30/18 Nystatin Powder [Mycostatin Powder] 1 applicatio TOPICAL BID PRN PRN 10/30/18 Oxybutynin Chloride [Ditropan Xl] 15 mg PO DAILY 10/30/18 Potassium (Otc) [Potassium OTC] 99 mg PO DAILY 10/30/18 Ranitidine [Zantac] 150 mg PO BID 10/30/18 Triamcinolone 0.1% Dental Pst [Kenalog Dental Paste] 1 applicatio TOPICAL 4X/DAY 10/30/18 Vitamin E 400 units PO BID 10/30/18 levETIRAcetam tablet [Keppra tablet] 500 mg PO QHS 10/30/18 Acetaminophen [Tylenol] 650 mg PO Q6H PRN PRN 12/17/18 Cyanocobalamin (Vitamin B-12) [B-12] 1,000 mcg PO DAILY 12/17/18 Guaifenesin 400 mg PO Q4H PRN PRN 12/17/18 Pravastatin [Pravachol] 20 mg PO QHS 12/17/18 Venlafaxine HCl [Effexor] 75 mg PO TID 12/17/18 Cephalexin [Keflex] 500 mg PO Q12 #12 capsule 12/19/18 Following Prescrptions Were Given to Patient: Cephalexin [Keflex] 500 mg PO Q12 #12 capsule Primary Care Physician: Noy Chakraborty MD [Primary Care Provider] - Please follow up with your Primary Care Physician in: 1 Week Please Follow Up With: Gamal Rudolph When: As scheduled Disposition: Home Minutes spent on discharge:: 35 Patient Condition:: Stable Medical Necessity - Tobacco Use Smoking Status: Never smoker Meaningful Use Info Meaningful Use Diagnoses (Choose all that apply): None applicable <Luís Collazo - Last Filed: 12/19/18 15:02> Discharge Date and Diagnosis - Secondary Discharge Diagnosis Chronic Problems Debility (Chronic) Depression (Chronic) VITA (obstructive sleep apnea) (Chronic) Hospital Course and Treatment Consultations 12/17/18 22:00 Consult: Onc/Wound/drier operator helper Routine Comment: Suprapubic catheter manisha-care, severe intertrigo Operations: None Procedures: None Summary of Care Provided: Patient seen and examined independently. Data reviewed. I agree with the above note by the nurse practitioner. The patient is a 73 year old F presents with fever and lethargy. Patient was found to have an abnormal urinalysis concerning for urinary tract infection. Given patient's history of multidrug-resistant Pseudomonas, patient was started on broad-spectrum antibiotics. Culture came back showing E. coli that was sensitive and not E BSL spectrum. Patient was discharged with Keflex. Also there is some concern for right lower extremity cellulitis. Patient actually did have cellulitis or not but overall is improved and does not any further management. Patient returned home with her aide. [] - Physical Exam General: Alert, Cooperative, No apparent distress HEENT: Atraumatic, Normocephalic Psych/Mental Status: Normal Affect, Appropriate Vital Signs Temp Pulse Resp BP Pulse Ox 37.4 C H 92 18 110/61 98 12/19/18 10:00 12/19/18 10:56 12/19/18 10:00 12/19/18 10:56 12/19/18 10:00 Oxygen Flow Rate (L/min) 2 Oxygen Delivery Method Room Air Weight: 155.2 kg Body Mass Index (BMI) 53.6 Intake and Output for Last 24 Hours 12/17/18 12/18/18 12/19/18 23:59 23:59 23:59 Intake Total 3811 / 3811 741 / 741 Output Total 3950 / 3950 1400 / 1400 Balance -139 / -139 -659 / -659 Microbiology Past 72 Hours 12/17/18 15:00 Blood Culture - Preliminary Blood Culture (Wb) - Right Forearm No growth in 48 hours. 12/17/18 14:30 Blood Culture - Preliminary Blood Culture (Wb) - Left Forearm No growth in 48 hours. 12/17/18 16:10 Urine Culture - Final Urine Catheter - Henry Presumptive E. coli POC Glucose 12/19/18 12/19/18 12/18/18 12:10 06:08 21:53 POC Glucose 118 H 95 94 12/18/18 16:58 POC Glucose 119 H Discharge Diet: Low fat/ Low Cholesterol, 1800 Calorie Control Diet, Carb Control Diet Discharge Activity: Return to Normal Activity Call your doctor if you observe: Fever of 101 or Higher, Shortness of breath, Dizziness, Fainting spells Disposition: Home Minutes spent on discharge:: 35 Patient Condition:: Stable Medical Necessity - Tobacco Use Smoking Status: Never smoker Meaningful Use Info Meaningful Use Diagnoses (Choose all that apply): None applicable Code Visit Inpatient E&M: 74890 Disch Hosp
--- NOTE | 2018-12-19 12:20 | PCM.PN.ID ---
Subjective: Feeling well, no fever, no pain in leg, no n/v/d. Back to baseline. - Physical Exam General: Alert, Cooperative, No apparent distress Lungs: Clear to auscultation, Normal air movement Cardiovascular: Regular rate, Regular Rhythm Abdomen: Soft, Non Tender, Non-Distended Extremities: Edema Skin: Rash Present - RLE redness improved Vital Signs Temp Pulse Resp BP Pulse Ox 99.3 F H 92 18 110/61 98 12/19/18 10:00 12/19/18 10:56 12/19/18 10:00 12/19/18 10:56 12/19/18 10:00 Oxygen Flow Rate (L/min) 2 Oxygen Delivery Method Room Air Weight: 155.2 kg Body Mass Index (BMI) 53.6 Intake and Output for Last 24 Hours 12/17/18 12/18/18 12/19/18 23:59 23:59 23:59 Intake Total 3811 / 3811 741 / 741 Output Total 3950 / 3950 1400 / 1400 Balance -139 / -139 -659 / -659 Microbiology Past 72 Hours 12/17/18 16:10 Urine Culture - Final Urine Catheter - Henry Presumptive E. coli POC Glucose 12/19/18 12/18/18 12/18/18 06:08 21:53 16:58 POC Glucose 95 94 119 H Medical Necessity - Tobacco Use Smoking Status: Never smoker Route of nutrition/ use of supplements: [] Nutritional Intake: [] IV Site: [] Henry Catheter: [] - Assessment/Plan Antibiotics: [] Assessment/Plan: [] Active and Suspected Problems Severe sepsis (Acute) Resolved. Likely source ecoli complicated uti. Stopped aztreonam, agree on d/c home with short course of keflex. Leg erythema also improved, no DVT seen on doppler. Will follow
[2018-12-19 12:27] LABS: Bedside Glucose 118 mg/dL (70-110)
[2018-12-19 13:00] VITALS: BP 110/64; PULSE 92; RESP 18; TEMP 37.1; O2SAT 98
--- NOTE | 2018-12-19 15:35 | CASEMGMT ---
Pt was active with [facility] and they last saw her on 11/09/18 and was sent to hospital. Pt was then discharged to the [facility] and then home from there. [facility] was not aware that pt went home from [place], so new order for RN, PT/OT placed at this time. SStaten TONI CM
--- NOTE | 2018-12-20 16:24 | CASEMGMT ---
TONI MARTINES Discharge F/U Phone Call LACE: 13 Strata: 4 Discharge date: 12/19/18 Call date: 12/20/18 Call time: [id number] Duration: 10 minutes Admission dx: Severe sepsis, UTI Pt states has been doing 'fine' and states 'this is the best I have felt when coming home.' Pt states no questions regarding discharge instructions or medications at this time. Pt states plans to keep scheduled appt's. Pt states no suggestions for [facility] at this time. Pt states 'they spoiled me rotten.' Pt voices no further questions/concerns/needs at this time. S[place]en TONI MARTINES
== END 2018-12-19 13:30 | disposition home or self-care (01) | DRG 698 ==
LOC: ED 17:13 → PCU 18:35
PROVIDERS: Admitting Provider Internal Medicine; Emergency Provider Emergency Medicine; Family Provider Internal Medicine; PCP Internal Medicine
DX: T83.511A Infection and inflammatory reaction due to indwelling urethral catheter, initial encounter (principal); A41.9 Sepsis, unspecified organism; R65.20 Severe sepsis without septic shock; N17.9 Acute kidney failure, unspecified; L03.115 Cellulitis of right lower limb; E87.1 Hypo-osmolality and hyponatremia; Z68.43 Body mass index [BMI] 50.0-59.9, adult; I13.0 Hypertensive heart and chronic kidney disease with heart failure and stage 1 through stage 4 chronic kidney disease, or unspecified chronic kidney disease; I50.32 Chronic diastolic (congestive) heart failure; N39.0 Urinary tract infection, site not specified; N99.511 Cystostomy infection; E66.01 Morbid (severe) obesity due to excess calories; B96.20 Unspecified Escherichia coli [E. coli] as the cause of diseases classified elsewhere; E11.22 Type 2 diabetes mellitus with diabetic chronic kidney disease; N18.3 Chronic kidney disease, stage 3 (moderate); G47.33 Obstructive sleep apnea (adult) (pediatric); K21.9 Gastro-esophageal reflux disease without esophagitis; F32.9 Major depressive disorder, single episode, unspecified; E87.5 Hyperkalemia; L30.4 Erythema intertrigo; Z79.84 Long term (current) use of oral hypoglycemic drugs; Z79.899 Other long term (current) drug therapy
CPT/HCPCS: 36415; 71045; 80048; 80053; 81001; 82962; 83605; 85025; 85610; 85730; 87040; 87086; 87088; 87186; 93005; 93971; 97161; 97165; 97802; 99283; J7030; A4216; J2405

== ENCOUNTER 2019-02-28 21:57 | Inpatient (IN) | payer MEDICARE, OTHER, SELFPAY ==
[2018-12-17 20:27] VITALS: BMI 53.6
[2019-02-28 21:58] VITALS: BP 126/64; PULSE 102; RESP 18; TEMP 37.8; O2SAT 94; BMI 52.4
--- NOTE | 2019-02-28 22:07 | EKG12_ITS ---
Test Reason : Blood Pressure : / mmHG Vent. Rate : 095 BPM Atrial Rate : 095 BPM P-R Int : 152 ms QRS Dur : 066 ms QT Int : 342 ms P-R-T Axes : 000 034 032 degrees QTc Int : 429 ms Ectopic Atrial Rhythm Low voltage QRS Septal infarct (cited on or before 11-NOV-2018), age undetermined Abnormal ECG Confirmed by SEBASTIÁN THOMPSON, KENNEDY ([id number]), photographic editor BROOKS WIGGINS ([id number]) on 03/04/2019 10:32:52 AM Referred By: JAZMIN Confirmed By:KENNEDY LOWERY MD
--- NOTE | 2019-02-28 22:15 | RAD_ITS ---
STUDY: X-RAY CHEST REASON FOR EXAM: Female, 73 years old. Fever TECHNIQUE: Single AP portable view of the chest. COMPARISON: December 17, 2018. FINDINGS: There are monitoring devices. There are interstitial fibrotic changes of the lungs. There is no demonstrated pleural abnormality. There is mild cardiac enlargement. Normal mediastinum and peace. Normal visualized pulmonary arteries. Normal visualized aortic arch and descending thoracic aorta. There is demineralization of the osseous structures. There is degenerative osteoarthritis of the bilateral shoulders. There is no demonstrated abnormality of the visualized soft tissue structures of the upper abdomen. RAD/Chest 1 View (Portable) IMPRESSION: Degenerative changes, as described above. No demonstrated acute cardiopulmonary process. Electronically Signed: Ray Desouza MD at 23:11 EDT , Service support ,
[2019-02-28] MEDS: 0.9% Normal Saline 1,000 ML 150 ML IV (22:39)
[2019-02-28 22:40] LABS: Basophil# 0.03 X10^3/uL; Basophil% 0.2 % (0-1); Hemoglobin 11.7 g/dl (12.0-15.0); Lymphocyte % 5.8 % (19-41); Mean Corp Hgb Conc 30.8 g/gl (32-36); Mean Corpuscular Hgb 28.4 pg (27.0-32.0); Mean Corpuscular Volume 92.2 fL (81-99); Mean Platelet Vol. 10.4 fl (6.2-12.0); Monocyte% 3.8 % (0-10); Neutrophil # 14.01 X10^3/uL (2.7-7.7); Neutrophil % 89.9 % (47-70); POSITIVE COUNT NO; POSITIVE DIFFERENTIAL NO; POSITIVE MORPHOLOGY NO; Platelet Count 366 K/mm3 (150-450); RBC Distribution Width CV 17.5 % (11.6-14.6); RBC Distribution Width SD 58.8 fl (35.1-43.9); Red Blood Count 4.12 M/mm3 (4.2-5.4); White Blood Count 15.6 K/mm3 (4.4-11.0)
[2019-02-28 22:45] LABS: Anion Gap 8 (5-15); BUN 31 mg/dL (7-18); BUN/Creat Ratio 18.3 RATIO (10-20); Calcium,Total 9.6 mg/dL (8.5-10.1); Chloride 96 mmol/L (98-107); Creatinine, Serum 1.69 mg/dL (0.55-1.02); EST Glomerular Filtration Rate 32 mL/min (>60); Est Glom Filt Rate - Afr Amer 38 mL/min (>60); Estimated Creatinine Clearance 29.26 ml/min; Glucose 159 mg/dL (74-106); Potassium 4.6 mmol/L (3.5-5.1); Sodium Level 131 mmol/L (136-145)
[2019-02-28 22:48] LABS: Mucous, Urine 0 SEEN /hpf (<or=2+); Squamous Epithelial Cells - UA 0 SEEN /hpf (5-10)
[2019-02-28 22:57] LABS: Color, Urine Brown (Yellow); Glucose, Dipstick Normal (Normal); Ketone-Dipstick 5 mg/dl (Negative); Leukocyte Esterase-Dipstick 500 /ul (Negative); Nitrite-Dipstick Negative (Negative); Occult Blood-Urine 250 /ul (Negative); Protein-Dipstick 500 mg/dl (Negative); Urine Bilirubin Dipstick Negative (Negative); Urine Clarity Turbid (Clear); Urine Urobilinogen Normal (Normal)
[2019-02-28 23:03] LABS: Bacteria 4+ /hpf (None Seen); White Blood Cells >100 SEEN /hpf (0-5)
[2019-02-28 23:07] LABS: Red Blood Cells-Urine 50-100 SEEN /hpf (0-5)
--- NOTE | 2019-02-28 23:14 | ED.VISSUMM ---
- ER Visit Summary Date of Service: 02/28/19 Chief Complaint: [Fever] History of Present Illness: The patient is a 73 F [presents to the emergency department complaint of a fever that started earlier today. Patient had fever up to 101 at home. Patient denies any cough or shortness of breath. She does have a suprapubic catheter. Patient states that she is been eating and drinking normally. Patient does have a history of diabetes, hypertension, and high cholesterol. Patient has had prior appendectomy, cholecystectomy, and hysterectomy. Physical Examination: [HEENT-PERRLA, EOMI. Cranial nerves II through XII grossly intact. TMs clear. Mucous membranes moist. No adenopathy. Cardiovascular-regular rate and rhythm without murmur or ectopy Lungs-clear to auscultation, chest wall stable without crepitus or subcu emphysema Abdomen-normoactive bowel sounds, soft, nontender, no rebound or rigidity, no peritoneal signs. Evaluation of the abdominal wall reveals diffuse erythema and cellulitic changes especially of the left sided abdominal wall and pannus. Patient is morbidly obese. Extremities-intact ?4, normal range of motion, normal pulses, atraumatic] Test Results: [CBC with differential obtained showed a white count that was 15.6, a hemoglobin 11.7, hematocrit 38, placed 366. Chemistries unremarkable. BUN was 31 and creatinine 1.69. Urinalysis showed 500 leukocyte esterase and greater than 100 WBCs as well as +4 bacteria. Troponin is less than 0.015.] Chest x-ray read by myself as nothing acute. Emergency Department Course and Treatment: [Patient was started on Rocephin 1 g IV as well as vancomycin.] Treatment Plan: [Admit for IV antibiotics] Disposition: [Admit] Impression: [Abdominal wall cellulitis UTI Generalized weakness] This note was generated with [employer] dictation software. It may contain incorrect words, spelling, and punctuation that were not noted in review of the chart prior to signing ED Disposition - Plan for ED Patient: Referrals: Noy Chakraborty MD [Primary Care Provider] -
--- NOTE | 2019-02-28 23:16 | HP.PCM_ITS ---
Problem List (1) Sepsis Status: Acute (2) Cellulitis Status: Acute (3) Cellulitis of abdominal wall Status: Acute (4) MICHAELLE (acute kidney injury) Status: Acute History of Present Illness Date of Admission: 02/28/19 Chief Complaint: abdominal wall redness, pain, swelling and fever The patient is a 73 year old F with a significant history of hypertension; diabetes mellitus; morbid obesity; congestive heart failure who presented to the emergency department with 1 day history of abdominal wall redness, pain, swelling and fever. She reports a home temperature of 101 Fahrenheit. Associated with his symptoms is chills; malaise; generalized weakness and fatigue. At baseline patient has home health care to help with her needs and she use a sit to stand lift. 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 She takes Pyridium that makes her urine red. At emergency department patient was found to have tachycardia; tachypnea; elevated leukocyte and elevated creatinine. Had lactic acid was drawn 2 times but the blood hemolyzed. Past Medical History Past Medical History (Chronic Problems): Chronic Problems Debility (Chronic) Depression (Chronic) VITA (obstructive sleep apnea) (Chronic) Allergies adhesive tape Allergy (Verified 02/28/19 22:06) blisters Influenza Virus Vaccines Allergy (Verified 02/28/19 22:06) shortness of breath/severe wheezing iron Allergy (Verified 02/28/19 22:06) from IV form chest pressure and heart palpitations Sulfa (Sulfonamide Antibiotics) Allergy (Verified 02/28/19 22:06) Shortness of breath bactrim does not work for her-per pcp paperwork meloxicam [From Mobic] Adverse Reaction (Verified 02/28/19 22:06) gi upset seasonal allergies Allergy (Uncoded 02/28/19 22:06) Other Home Medications: Ambulatory Orders Medication Instructions Recorded DiphenhydrAMINE [Benadryl] 25 mg PO BID PRN PRN 09/30/13 Furosemide [Lasix] 20 mg PO TID 09/30/13 Pantoprazole Sodium [Protonix] 40 mg PO DAILY 09/30/13 Albuterol Inhaler [Ventolin Hfa] 2 puff INHALATION Q4H PRN PRN 10/30/18 Baclofen 10 mg PO TID PRN PRN 10/30/18 Cholecalciferol (VIT D3) [Vitamin 1,000 unit PO DAILY 10/30/18 D3] Cranberry Conc/Ascorbic Acid 1 each PO BID 10/30/18 [Cranberry Concentrate Softgel] Diphenoxylate/Atrop [Lomotil] 1 tablet PO 4X/DAY PRN PRN 10/30/18 Duloxetine Hcl [Cymbalta] 30 mg PO DAILY 10/30/18 Fluticasone 0.05% [Flonase Nasal 2 spray NASAL DAILY 10/30/18 [place]] Gabapentin [Neurontin] 600 mg PO TID 10/30/18 Guaifenesin [Mucinex] 1,200 mg PO BID PRN 10/30/18 Hydrocodone Bitart/Apap 5-325 1 tablet PO Q6H PRN PRN 10/30/18 [[place] 5/325] Lisinopril [Zestril] 10 mg PO DAILY 10/30/18 Metformin HCl [Glucophage] 500 mg PO BID 10/30/18 Metoprolol(XL)Succ [Toprol Xl 25 mg PO DAILY 10/30/18 (Beta Genaro)] Multivitamins,Ther W-Minerals 1 tablet PO 4X/DAY 10/30/18 [Multivitamin With Minerals] Mupirocin [Bactroban] 1 applicatio TOPICAL BID 10/30/18 Nystatin Powder [Mycostatin Powder] 1 applicatio TOPICAL BID PRN PRN 10/30/18 Oxybutynin Chloride [Ditropan Xl] 15 mg PO DAILY 10/30/18 Potassium (Otc) [Potassium OTC] 99 mg PO DAILY 10/30/18 Ranitidine [Zantac] 150 mg PO BID 10/30/18 Triamcinolone 0.1% Dental Pst 1 applicatio TOPICAL 4X/DAY 10/30/18 [Kenalog Dental Paste] Vitamin E 400 units PO BID 10/30/18 levETIRAcetam tablet [Keppra 500 mg PO QHS 10/30/18 tablet] Acetaminophen [Tylenol] 650 mg PO Q6H PRN PRN 12/17/18 Cyanocobalamin (Vitamin B-12) 1,000 mcg PO DAILY 12/17/18 [B-12] Guaifenesin 400 mg PO Q4H PRN PRN 12/17/18 Pravastatin [Pravachol] 20 mg PO QHS 12/17/18 Venlafaxine HCl [Effexor] 75 mg PO TID 12/17/18 Cephalexin [Keflex] 500 mg PO Q12 #12 capsule 12/19/18 Surgical History: cholecystectomy, hysterectomy Psychiatric History: Anxiety, Depression SATELLITE MANAGER History: No pertinent SATELLITE MANAGER history Lives: Alone - Caregiver and caregiver's leave in adjacent house. Smoking Status: Former smoker Alcohol: None - *Family History Maternal History Items: Diabetes, Heart Disease - Her father had a CABG and CHF, Unknown Paternal History Items: Heart Disease, No pertinent history Review of Systems Constitutional: Reports: Chills, Fever, Malaise, Weakness, Fatigue. Denies: Weight Change HEENT: Denies: Head Aches, Sinus Congestion, Sinus Drainage Cardiovascular: Denies: Chest Pain, Palpitations Respiratory: Denies: Cough, Shortness of breath at rest, Sputum production Gastrointestinal: Reports: Abdominal Pain. Denies: Nausea, Vomiting Genitourinary: Denies: Dysuria Musculoskeletal: Denies: Joint Pain, Joint Tenderness Skin: Denies: Rash, Wounds Neurological: Denies: Numbness, Tingling, Focal weakness Psychiatric: Denies: Anxiety, Depression, Homicidal Ideations, Suicidal Ideations Hematologic/ Lymphatic: Denies: Easy Bruising, Easy Bleeding VTE Information - Inpt Only VTE Present on Admission: No VTE Mechan Device Prophylaxis: None VTE Pharm Prophylaxis ordered?: Yes Patient Problems: Active and Suspected Problems Cellulitis (Acute) Cellulitis of abdominal wall (Acute) - Physical Exam General: Alert, Oriented x3, Cooperative, - - Obese HEENT: Atraumatic, PERRLA, EOMI, Normocephalic Neck: Supple, No JVD, Negative Carotid Bruits Lungs: Clear to auscultation, Normal air movement, Tachypneic Cardiovascular: No murmurs, Tachycardic Abdomen: Bowel Sounds Present, Soft, Non Tender Extremities: No edema, Capillary Refill Less than 3 Seconds Skin: Excoriated - Abdominal folds, - - Erythema of abdominal folds, left worse than right. Increased warmth of the abdominal folds left WORSE than right. Increased pain of abdominal folds. Musculoskeletal: No Tenderness to Palpation of Joints or Extremities Neurological: - - Aphasia Psych/Mental Status: Normal Affect, Appropriate Vital Signs Temp Pulse Resp BP Pulse Ox 100.1 F H 102 H 18 126/64 H 94 02/28/19 21:58 02/28/19 21:58 02/28/19 21:58 02/28/19 21:58 02/28/19 21:58 Oxygen Delivery Method Room Air Weight: 151.7 kg Body Mass Index (BMI) 52.4 Laboratory Tests Past 24 Hrs 02/28/19 02/28/19 02/28/19 22:10 22:10 22:10 WBC 15.6 H RBC 4.12 L Hgb 11.7 L Hct 38.0 MCV 92.2 MCH 28.4 MCHC 30.8 L RDW 17.5 H RDW Differential 58.8 H Plt Count 366 MPV 10.4 Immature Gran % (Auto) 0.300 Neut % (Auto) 89.9 H Lymph % (Auto) 5.8 L Mora % (Auto) 3.8 Eos % (Auto) 0.0 Baso % (Auto) 0.2 Absolute Neuts (auto) 14.0 H Absolute Lymphs (auto) 0.90 Total Counted Not Reportable Sodium 131 L Potassium 4.6 Chloride 96 L Carbon Dioxide 27.0 Anion Gap 8 BUN 31 H Creatinine 1.69 H Estim Creat Clear Calc 29.26 Est GFR (MDRD) Af Amer 38 L Est GFR (MDRD) Non-Af 32 L BUN/Creatinine Ratio 18.3 Glucose 159 H Lactic Acid Cancelled Calcium 9.6 Troponin I < 0.015 Urine Color Urine Clarity Urine pH Ur Specific [place] Urine Protein Urine Glucose (UA) Urine Ketones Urine Occult Blood Urine Nitrite Urine Bilirubin Urine Urobilinogen Ur Leukocyte Esterase Urine RBC Urine WBC Ur Squamous Epith Cells Urine Bacteria Urine Mucus 02/28/19 02/28/19 22:40 22:55 WBC RBC Hgb Hct MCV MCH MCHC RDW RDW Differential Plt Count MPV Immature Gran % (Auto) Neut % (Auto) Lymph % (Auto) Mor[place] % (Auto) Eos % (Auto) Baso % (Auto) Absolute Neuts (auto) Absolute Lymphs (auto) Total Counted Sodium Potassium Chloride Carbon Dioxide Anion Gap BUN Creatinine Estim Creat Clear Calc Est GFR (MDRD) Af Amer Est GFR (MDRD) Non-Af BUN/Creatinine Ratio Glucose Lactic Acid Pending Calcium Troponin I Urine Color Brown Urine Clarity Turbid Urine pH 7.0 Ur Specific [place] 1.010 Urine Protein 500 H Urine Glucose (UA) Normal Urine Ketones 5 H Urine Occult Blood 250 H Urine Nitrite Negative Urine Bilirubin Negative Urine Urobilinogen Normal Ur Leukocyte Esterase 500 H Urine RBC 50-100 SEEN Urine WBC >100 SEEN Ur Squamous Epith Cells 0 SEEN Urine Bacteria 4+ Urine Mucus 0 SEEN Assessment/Plan All Active Problems Cellulitis (Acute) Cellulitis of abdominal wall (Acute) Severe sepsis (Acute) Dehydration (Acute) Sepsis (Acute) Acute metabolic encephalopathy (Acute) MICHAELLE (acute kidney injury) (Acute) Acute cystitis (Ruled-out) Suprapubic catheter dysfunction (Acute) UTI (urinary tract infection) (Acute) The patient is a 73 year old F with a significant history of VITA; hypertension; diabetes mellitus; morbid obesity; congestive heart failure who presented to the emergency department with 1 day history of abdominal wall redness, pain, swelling and fever; and found to have tachycardia; tachypnea; leukocytosis and elevated serum creatinine consistent with sepsis secondary to cellulitis of the abdominal wall and probable urinary infection. Severe sepsis secondary to abdominal wall infection Patient with aphasia that family thinks is reminiscent of a previous abdominal infection. Likely nidus of infection is fungus of her inguinal fold. Will start patient on fluconazole p.o. And continue nystatin powder to folds. Received vancomycin and ceftriaxone at emergency department. We will continue patient on vancomycin. Received ceftriaxone 1 g at emergency department. Because of a severe infection and obesity we will give an additional 1 g of ceftriaxone and continue patient on ceftriaxone 2 g each day. Trend CBC and BMP. Will order lactic acid. Lactic acid x2 was hemolyzed at emergency department. Blood cultures are pending. Probable cystitis Review of emergency department labs shows abnormal urinalysis. Reportedly patient have multiple episodes of E. coli cystitis that could be colonization since patient has suprapubic catheter. We will continue patient on ceftriaxone as above. Follow urine culture. Her suprapubic catheter is due to be changed tomorrow. Nursing communication to change suprapubic catheter. Congestive heart failure. Patient is on home Lasix. Because of sepsis patient received IV fluid in the emergency department. We will hold Lasix and continue IV hydration. Hypertension on presentation his blood pressure was within goal. There is some recorded elevated initial blood pressure by this does not appear consistent with other blood pressure reading and may just be an error. Metoprolol continued We will hold lisinopril because of MICHAELLE. Trend blood pressure and adjust blood pressure medication Chronic pain Cymbalta continued We will decrease home gabapentin dose because of MICHAELLE Depression Effexor and Cymbalta continued. VITA CPAP continued DVT prophylaxis Because of body weight would do Lovenox 40 mg twice daily. Code Visit Inpatient E&M: 36320 Init Hosp L3
[2019-02-28] MEDS: Ceftriaxone 1 GM/50 ML BAG IV (23:26)
[2019-03-01] VITALS (15 sets, daily range): BP systolic 101–208; BP diastolic 57–108; PULSE 89–124; RESP 16–20; TEMP 36.6–38.2; O2SAT 94–100; BMI 52.4; BMI 52.7
[2019-03-01 01:17] LABS: Lactic Acid 1.5 mmol/L (0.4-2.0)
--- NOTE | 2019-03-01 03:43 | PCM.RX.CS ---
Consult Pharmacy has been consulted to manage selected antiobiotic: Vancomycin Type of Consult: New start Suspected Infection: Sepsis Prior Doses of Antibiotics Received/Current Regimen: Medications Vancomycin HCl 1,000 mg/ (Sodium Chloride) 200 mls @ 200 mls/hr IV Q24H ZARINA Discontinued Medications Vancomycin HCl 2,000 mg/ (Sodium Chloride) 540 mls @ 250 mls/hr IV X1 ONE Stop: 03/01/19 01:39 Last Admin: 02/28/19 23:45 Dose: 250 mls/hr Labs: Sodium 131 mmol/L (136-145) L 02/28/19 22:10 Potassium 4.6 mmol/L (3.5-5.1) 02/28/19 22:10 Chloride 96 mmol/L (98-107) L 02/28/19 22:10 Carbon Dioxide 27.0 mmol/L (21.0-32.0) 02/28/19 22:10 Anion Gap 8 (5-15) 02/28/19 22:10 BUN 31 mg/dL (7-18) H 02/28/19 22:10 Creatinine 1.69 mg/dL (0.55-1.02) H 02/28/19 22:10 Est GFR (MDRD) Af Amer 38 mL/min (>60) L 02/28/19 22:10 Est GFR (MDRD) Non-Af 32 mL/min (>60) L 02/28/19 22:10 BUN/Creatinine Ratio 18.3 RATIO (10-20) 02/28/19 22:10 Glucose 159 mg/dL (74-106) H 02/28/19 22:10 Weight used for dosin.9 kg Estimated Creatinine Clearance: 29 Goal Trough: 10-15 mcg/mL Pharmacy Plan for Drug Dosing: Pharmacy Service will continue to monitor and adjust dosing as required. Follow-Up Labs: Trough Vancomycin Labs to be done on [date and time ordered]: 03/02/19 @9027
[2019-03-01] MEDS: Ceftriaxone 1 GM/50 ML BAG IV (04:19)
[2019-03-01] MEDS: Fluconazole 100 MG Tablet 200 MG PO (04:20)
[2019-03-01] MEDS: 0.9% Normal Saline 1,000 ML 75 ML IV (04:31)
[2019-03-01] MEDS: Gabapentin 100 MG Capsule PO ×3 (05:49→22:58)
[2019-03-01] MEDS: Venlafaxine HCl 75 MG Tablet PO ×3 (05:49→22:57)
[2019-03-01 06:49] LABS: Hematocrit 30.5 % (37-47); Hemoglobin 9.6 g/dl (12.0-15.0); Mean Corp Hgb Conc 31.5 g/gl (32-36); Mean Corpuscular Hgb 28.5 pg (27.0-32.0); Mean Corpuscular Volume 90.5 fL (81-99); Mean Platelet Vol. 9.7 fl (6.2-12.0); Platelet Count 253 K/mm3 (150-450); RBC Distribution Width CV 17.4 % (11.6-14.6); RBC Distribution Width SD 55.3 fl (35.1-43.9); Red Blood Count 3.37 M/mm3 (4.2-5.4); White Blood Count 11.4 K/mm3 (4.4-11.0)
[2019-03-01 06:50] LABS: Scan Indicated on CBC? Y/N NO
[2019-03-01 06:55] LABS: Bedside Glucose 120 mg/dL (70-110)
[2019-03-01 07:11] LABS: Anion Gap 6 (5-15); BUN 28 mg/dL (7-18); BUN/Creat Ratio 21.5 RATIO (10-20); Calcium,Total 8.4 mg/dL (8.5-10.1); Chloride 101 mmol/L (98-107); EST Glomerular Filtration Rate 43 mL/min (>60); Est Glom Filt Rate - Afr Amer 52 mL/min (>60); Estimated Creatinine Clearance 38.04 ml/min; Glucose 126 mg/dL (74-106); Potassium 3.9 mmol/L (3.5-5.1); Sodium Level 133 mmol/L (136-145)
--- NOTE | 2019-03-01 08:00 | PCM.RX.CS ---
Consult Pharmacy has been consulted to manage selected antiobiotic: Vancomycin Type of Consult: Follow-up Suspected Infection: Sepsis Prior Doses of Antibiotics Received/Current Regimen: Received 2000mg IV x1 in E.R. on 02/28/19 at 23:45 Labs: Sodium 133 mmol/L (136-145) L 03/01/19 06:20 Potassium 3.9 mmol/L (3.5-5.1) 03/01/19 06:20 Chloride 101 mmol/L (98-107) 03/01/19 06:20 Carbon Dioxide 26.0 mmol/L (21.0-32.0) 03/01/19 06:20 Anion Gap 6 (5-15) 03/01/19 06:20 BUN 28 mg/dL (7-18) H 03/01/19 06:20 Creatinine 1.30 mg/dL (0.55-1.02) H 03/01/19 06:20 Est GFR (MDRD) Af Amer 52 mL/min (>60) L 03/01/19 06:20 Est GFR (MDRD) Non-Af 43 mL/min (>60) L 03/01/19 06:20 BUN/Creatinine Ratio 21.5 RATIO (10-20) H 03/01/19 06:20 Glucose 126 mg/dL (74-106) H 03/01/19 06:20 Weight used for dosin.9 kg Estimated Creatinine Clearance: 38 ml/min Goal Trough: 10-15 mcg/mL Pharmacy Plan for Drug Dosing: The patient's renal function improved from yesterday (SCr down to 1.30 from 1.69 and CrCl up to 38 ml/min from 29 ml/min), so will increase dose from 1000mg IV q24h to 1250mg IV q24h per the [facility] vancomycin dosing chart. Start time will be the same, tonight at midnight. The timing of the first trough to be drawn will also stay the same. Pharmacy Service will continue to monitor and adjust dosing as required. Follow-Up Labs: Trough Vancomycin Labs to be done on [date and time ordered]: 03/02/19 at 23:30
--- NOTE | 2019-03-01 08:04 | PHA.PHARE_ITS ---
Consult Pharmacy has been consulted to manage selected antiobiotic: Vancomycin Type of Consult: Follow-up Suspected Infection: Sepsis Prior Doses of Antibiotics Received/Current Regimen: Received 2000mg IV x1 in E.R. on 02/28/19 at 23:45 Labs: Sodium 133 mmol/L (136-145) L 03/01/19 06:20 Potassium 3.9 mmol/L (3.5-5.1) 03/01/19 06:20 Chloride 101 mmol/L (98-107) 03/01/19 06:20 Carbon Dioxide 26.0 mmol/L (21.0-32.0) 03/01/19 06:20 Anion Gap 6 (5-15) 03/01/19 06:20 BUN 28 mg/dL (7-18) H 03/01/19 06:20 Creatinine 1.30 mg/dL (0.55-1.02) H 03/01/19 06:20 Est GFR (MDRD) Af Amer 52 mL/min (>60) L 03/01/19 06:20 Est GFR (MDRD) Non-Af 43 mL/min (>60) L 03/01/19 06:20 BUN/Creatinine Ratio 21.5 RATIO (10-20) H 03/01/19 06:20 Glucose 126 mg/dL (74-106) H 03/01/19 06:20 Weight used for dosin.9 kg Estimated Creatinine Clearance: 38 ml/min Goal Trough: 10-15 mcg/mL Pharmacy Plan for Drug Dosing: The patient's renal function improved from yesterday (SCr down to 1.30 from 1.69 and CrCl up to 38 ml/min from 29 ml/min), so will increase dose from 1000mg IV q24h to 1250mg IV q24h per the [facility] vancomycin dosing chart. Start time will be the same, tonight at midnight. The timing of the first trough to be drawn will also stay the same. Pharmacy Service will continue to monitor and adjust dosing as required. Follow-Up Labs: Trough Vancomycin Labs to be done on [date and time ordered]: 03/02/19 at 23:30
[2019-03-01] MEDS: Vitamin E 400 UNITS Capsule PO ×2 (09:28→17:49)
[2019-03-01] MEDS: DULoxetine Hcl 30 MG Capsule PO (09:28)
[2019-03-01] MEDS: Multivitamins,Ther W-Minerals Tablet 1 TABLET PO ×4 (09:28→22:56)
[2019-03-01] MEDS: Tolterodine Tartrate 4 MG CAP.SA PO (09:29)
[2019-03-01] MEDS: Pantoprazole Sodium 40 MG Tablet PO (09:30)
[2019-03-01] MEDS: Enoxaparin 40 MG/0.4 ML Syringe SC ×2 (09:30→22:58)
[2019-03-01] MEDS: Famotidine 20 MG Tablet PO ×2 (09:30→22:57)
[2019-03-01] MEDS: Metoprolol(XL)Succ 25 MG Tablet PO (09:31)
[2019-03-01] MEDS: Cyanocobalamin 500 MCG Tablet 1000 MCG PO (09:31)
[2019-03-01] MEDS: Nystatin Powder 15gm Bottle 1 APPLIC TOPICAL ×2 (09:33→22:59)
[2019-03-01] MEDS: Glucerna Shake 120 ML LIQUID PO ×4 (09:48→23:04)
[2019-03-01 11:46] LABS: Bedside Glucose 103 mg/dL (70-110)
--- NOTE | 2019-03-01 13:45 | CASEMGMT ---
RN CM Assessment Presentation: Cellulitis, Severe Sepsis Intro role of CM and purpose of RN CM assessment to patient in room. Pt is alert, oriented and able to participate in assessment. Demographics, PCP and Pharmacy verified. 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 Pt did state she has been feeling weak and tired, and unable to do as much as I was. RN CM discussed option for SNF on dc. Pt states she would like to wait until tomorrow to see if she is feeling better before making a decision re: SNF vs Home. Pt is agreeable to Home Health through [facility] being ordered again if returns home. PCP: Dr. Chakraborty Specialists: [facility] Preferred Pharmacy: [facility] Insurance:[facility] Prescription Benefit: yes LNOK: Sister, Esperanza Ribeiro Living Arrangements: mobile home, ramp into home. 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 Pt states she folds her own clothes and puts away and she cooks her own meals. Pt uses electric scooter in home as she can't stand long on my feet. Transportation: pt's caregiver or sister assist with transportation. DME: Trapeze, side rails, motorized WC, rolling shower chair, commode, grab bars, O2 2L @ bedtime and Bipap with sleep. HHC: [facility] in past, dc'd pt January. Pt is agreeable to have [facility] again on dc. SNF: [place] in past. Pt states she would would return to [place], but NOT to [facility]. Patient DC goals: prefers to return home on discharge. DC PLAN: anticipate home with [facility]. If SNF needed, pt is agreeable to discuss options. Alec CHUA RN ACM
[2019-03-01] MEDS: Acetaminophen 325 MG Tablet 650 MG PO (14:05)
--- NOTE | 2019-03-01 14:08 | PCM.PROGNOTE ---
<Nestor Wiley - Last Filed: 03/01/19 14:08> Patient Problems: Active and Suspected Problems Cellulitis (Acute) Cellulitis of abdominal wall (Acute) Subjective: Pt c/o all over pain, aching, with any movement. None when sitting still. No chills. Fever still persistent, last at 1407 today 100.7. She is not SOB or requiring O2. She has no discomfort with her suprapubic cath. No surrounding cellulitic changes. Some urine leaking. She wants her own suprapubic replacement from home used when changes. She lives alone, she has some home health aids that come and help her with dressing changes. - Physical Exam General: Alert, Oriented x3, Cooperative HEENT: Atraumatic, PERRLA, EOMI, Normocephalic Neck: Supple, No JVD, Negative Carotid Bruits Lungs: Diminished Cardiovascular: Regular rate, No murmurs Abdomen: Bowel Sounds Present, Soft, Non Tender, Obese, - - alrge pannus, areas of erythema and skin breakdown c/w pressure sores, some annular lesions within larger erythematous areas which look candidal. The sacral decubitus does not appear to have cellulitic changes or purulent drainage. The posteriod wounds appear c/w pressure wounds with mild erythema with no other changes suggestive of cellulitis Extremities: No edema, Capillary Refill Less than 3 Seconds Skin: No rashes, No breakdown Musculoskeletal: No Tenderness to Palpation of Joints or Extremities Neurological: Cranial nerves II-XII grossly intact Psych/Mental Status: Normal Affect, Appropriate, Alert and oriented to time, place, person, mood and affect Vital Signs Temp Pulse Resp BP Pulse Ox 100.7 F H 97 18 137/72 H 95 03/01/19 14:07 03/01/19 14:07 03/01/19 14:07 03/01/19 14:07 03/01/19 14:07 Oxygen Flow Rate (L/min) 2.5 Oxygen Delivery Method Room Air Weight: 337 lb 1.388 oz Body Mass Index (BMI) 52.7 Intake and Output for Last 24 Hours 02/27/19 02/28/19 03/01/19 23:59 23:59 23:59 Intake Total 1785 / 1785 Output Total 1400 / 1400 Balance 385 / 385 Microbiology Past 72 Hours 04/18/19 22:40 Urine Culture - Preliminary Urine Catheter - Henry Presumptive E. coli Laboratory Tests Past 24 Hrs 02/28/19 02/28/19 02/28/19 22:10 22:10 22:10 WBC 15.6 H RBC 4.12 L Hgb 11.7 L Hct 38.0 MCV 92.2 MCH 28.4 MCHC 30.8 L RDW 17.5 H RDW Differential 58.8 H Plt Count 366 MPV 10.4 Immature Gran % (Auto) 0.300 Neut % (Auto) 89.9 H Lymph % (Auto) 5.8 L [place] % (Auto) 3.8 Eos % (Auto) 0.0 Baso % (Auto) 0.2 Absolute Neuts (auto) 14.0 H Absolute Lymphs (auto) 0.90 Total Counted Not Reportable Sodium 131 L Potassium 4.6 Chloride 96 L Carbon Dioxide 27.0 Anion Gap 8 BUN 31 H Creatinine 1.69 H Estim Creat Clear Calc 29.26 Est GFR (MDRD) Af Amer 38 L Est GFR (MDRD) Non-Af 32 L BUN/Creatinine Ratio 18.3 Glucose 159 H Lactic Acid Cancelled Calcium 9.6 Troponin I < 0.015 Urine Color Urine Clarity Urine pH Ur Specific [place] Urine Protein Urine Glucose (UA) Urine Ketones Urine Occult Blood Urine Nitrite Urine Bilirubin Urine Urobilinogen Ur Leukocyte Esterase Urine RBC Urine WBC Ur Squamous Epith Cells Urine Bacteria Urine Mucus 02/28/19 02/28/19 03/01/19 22:40 22:55 00:35 WBC RBC Hgb Hct MCV MCH MCHC RDW RDW Differential Plt Count MPV Immature Gran % (Auto) Neut % (Auto) Lymph % (Auto) [place] % (Auto) Eos % (Auto) Baso % (Auto) Absolute Neuts (auto) Absolute Lymphs (auto) Total Counted Sodium Potassium Chloride Carbon Dioxide Anion Gap BUN Creatinine Estim Creat Clear Calc Est GFR (MDRD) Af Amer Est GFR (MDRD) Non-Af BUN/Creatinine Ratio Glucose Lactic Acid Cancelled 1.5 Calcium Troponin I Urine Color Brown Urine Clarity Turbid Urine pH 7.0 Ur Specific [place] 1.010 Urine Protein 500 H Urine Glucose (UA) Normal Urine Ketones 5 H Urine Occult Blood 250 H Urine Nitrite Negative Urine Bilirubin Negative Urine Urobilinogen Normal Ur Leukocyte Esterase 500 H Urine RBC 50-100 SEEN Urine WBC >100 SEEN Ur Squamous Epith Cells 0 SEEN Urine Bacteria 4+ Urine Mucus 0 SEEN 03/01/19 03/01/19 06:20 06:20 WBC 11.4 H RBC 3.37 L Hgb 9.6 L Hct 30.5 L MCV 90.5 MCH 28.5 MCHC 31.5 L RDW 17.4 H RDW Differential 55.3 H Plt Count 253 MPV 9.7 Immature Gran % (Auto) Neut % (Auto) Lymph % (Auto) [place] % (Auto) Eos % (Auto) Baso % (Auto) Absolute Neuts (auto) Absolute Lymphs (auto) Total Counted Sodium 133 L Potassium 3.9 Chloride 101 Carbon Dioxide 26.0 Anion Gap 6 BUN 28 H Creatinine 1.30 H Estim Creat Clear Calc 38.04 Est GFR (MDRD) Af Amer 52 L Est GFR (MDRD) Non-Af 43 L BUN/Creatinine Ratio 21.5 H Glucose 126 H Lactic Acid Calcium 8.4 L Troponin I Urine Color Urine Clarity Urine pH Ur Specific [place] Urine Protein Urine Glucose (UA) Urine Ketones Urine Occult Blood Urine Nitrite Urine Bilirubin Urine Urobilinogen Ur Leukocyte Esterase Urine RBC Urine WBC Ur Squamous Epith Cells Urine Bacteria Urine Mucus POC Glucose 03/01/19 03/01/19 11:39 06:45 POC Glucose 103 120 H Medical Necessity - Tobacco Use Smoking Status: Former smoker Assessment/Plan All Active Problems Cellulitis (Acute) Cellulitis of abdominal wall (Acute) Severe sepsis (Acute) Dehydration (Acute) Sepsis (Acute) Acute metabolic encephalopathy (Acute) MICHAELLE (acute kidney injury) (Acute) Acute cystitis (Ruled-out) Suprapubic catheter dysfunction (Acute) UTI (urinary tract infection) (Acute) 1. Acute sepsis - possibly 2/2 URI, UTI less likely probable colonization, less likely cellulitis as she appears to have chronic pressure wounds and candidal changes. Regardless, Rocephin will cover both URI and E coli UTI - prior UTIs with E coli were resistant to fluoroquinolones. She will need her suprapubic changed. WBCs have improved. Fever still present. Continue diflucan for candidiasis. 2. Sacral pressure ulcer, other wounds - wound care consulted. 3. ? MICHAELLE - baseline unclear. Will trend. Likely underlying CKD. 4.Chronic CHF - held, IV fluids administered. 5. Morbid obesity, debility, poor self care - worsening at home, she does not seem to be effectively caring for herself. She is also having additional difficulty even with her jensen lift at home. 6. Chronic pain - cymbalta 7. VITA - CPAP DVT ppx lovenox DC planning: ?SNF vs [facility], multiple recent admissions for the same. This patient was seen by Nestor Wiley PA-C under the supervision of Dr. Collazo <Luís Collazo - Last Filed: 03/01/19 14:54> - Physical Exam General: Alert, Cooperative HEENT: Atraumatic, Normocephalic Lungs: Clear to auscultation, Diminished Cardiovascular: Regular rate, No murmurs Abdomen: Bowel Sounds Present, Soft, Non Tender, Obese, - Extremities: No edema, Capillary Refill Less than 3 Seconds Skin: - - Skin slight Tianna intertrigo underneath her pannus. Appears to be a stage I ulcer over the left side of her pannus on the lateral aspect. Superficial ulcerations without purulence noted underneath her pannus Psych/Mental Status: Normal Affect Vital Signs Temp Pulse Resp BP Pulse Ox 38.2 C H 97 18 137/72 H 95 03/01/19 14:07 03/01/19 14:07 03/01/19 14:07 03/01/19 14:07 03/01/19 14:07 Oxygen Flow Rate (L/min) 2.5 Oxygen Delivery Method Room Air Weight: 152.9 kg Body Mass Index (BMI) 52.7 Intake and Output for Last 24 Hours 02/27/19 02/28/19 03/01/19 23:59 23:59 23:59 Intake Total 1785 / 1785 Output Total 1400 / 1400 Balance 385 / 385 Microbiology Past 72 Hours 02/28/19 22:40 Urine Culture - Preliminary Urine Catheter - Henry Presumptive E. coli Laboratory Tests Past 24 Hrs 02/28/19 02/28/19 02/28/19 22:10 22:10 22:10 WBC 15.6 H RBC 4.12 L Hgb 11.7 L Hct 38.0 MCV 92.2 MCH 28.4 MCHC 30.8 L RDW 17.5 H RDW Differential 58.8 H Plt Count 366 MPV 10.4 Immature Gran % (Auto) 0.300 Neut % (Auto) 89.9 H Lymph % (Auto) 5.8 L [place] % (Auto) 3.8 Eos % (Auto) 0.0 Baso % (Auto) 0.2 Absolute Neuts (auto) 14.0 H Absolute Lymphs (auto) 0.90 Total Counted Not Reportable Sodium 131 L Potassium 4.6 Chloride 96 L Carbon Dioxide 27.0 Anion Gap 8 BUN 31 H Creatinine 1.69 H Estim Creat Clear Calc 29.26 Est GFR (MDRD) Af Amer 38 L Est GFR (MDRD) Non-Af 32 L BUN/Creatinine Ratio 18.3 Glucose 159 H Lactic Acid Cancelled Calcium 9.6 Troponin I < 0.015 Urine Color Urine Clarity Urine pH Ur Specific [place] Urine Protein Urine Glucose (UA) Urine Ketones Urine Occult Blood Urine Nitrite Urine Bilirubin Urine Urobilinogen Ur Leukocyte Esterase Urine RBC Urine WBC Ur Squamous Epith Cells Urine Bacteria Urine Mucus 02/28/19 02/28/19 03/01/19 22:40 22:55 00:35 WBC RBC Hgb Hct MCV MCH MCHC RDW RDW Differential Plt Count MPV Immature Gran % (Auto) Neut % (Auto) Lymph % (Auto) [place] % (Auto) Eos % (Auto) Baso % (Auto) Absolute Neuts (auto) Absolute Lymphs (auto) Total Counted Sodium Potassium Chloride Carbon Dioxide Anion Gap BUN Creatinine Estim Creat Clear Calc Est GFR (MDRD) Af Amer Est GFR (MDRD) Non-Af BUN/Creatinine Ratio Glucose Lactic Acid Cancelled 1.5 Calcium Troponin I Urine Color Brown Urine Clarity Turbid Urine pH 7.0 Ur Specific [place] 1.010 Urine Protein 500 H Urine Glucose (UA) Normal Urine Ketones 5 H Urine Occult Blood 250 H Urine Nitrite Negative Urine Bilirubin Negative Urine Urobilinogen Normal Ur Leukocyte Esterase 500 H Urine RBC 50-100 SEEN Urine WBC >100 SEEN Ur Squamous Epith Cells 0 SEEN Urine Bacteria 4+ Urine Mucus 0 SEEN 03/01/19 03/01/19 06:20 06:20 WBC 11.4 H RBC 3.37 L Hgb 9.6 L Hct 30.5 L MCV 90.5 MCH 28.5 MCHC 31.5 L RDW 17.4 H RDW Differential 55.3 H Plt Count 253 MPV 9.7 Immature Gran % (Auto) Neut % (Auto) Lymph % (Auto) [place] % (Auto) Eos % (Auto) Baso % (Auto) Absolute Neuts (auto) Absolute Lymphs (auto) Total Counted Sodium 133 L Potassium 3.9 Chloride 101 Carbon Dioxide 26.0 Anion Gap 6 BUN 28 H Creatinine 1.30 H Estim Creat Clear Calc 38.04 Est GFR (MDRD) Af Amer 52 L Est GFR (MDRD) Non-Af 43 L BUN/Creatinine Ratio 21.5 H Glucose 126 H Lactic Acid Calcium 8.4 L Troponin I Urine Color Urine Clarity Urine pH Ur Specific [place] Urine Protein Urine Glucose (UA) Urine Ketones Urine Occult Blood Urine Nitrite Urine Bilirubin Urine Urobilinogen Ur Leukocyte Esterase Urine RBC Urine WBC Ur Squamous Epith Cells Urine Bacteria Urine Mucus POC Glucose 03/01/19 03/01/19 11:39 06:45 POC Glucose 103 120 H Assessment/Plan Patient seen and examined independently. Data reviewed. I agree with the above note by the physician office administrative assistant. 1. Systemic inflammatory response syndrome Clear the patient actually has a true bacterial infection. I do not feel the patient has cellulitis and will discontinue the vancomycin. Patient may have a UTI but patient does have a chronic Henry so this could be just colonization. Also patient may have just upper respiratory infection. Will discontinue the vancomycin and monitor the patient overnight. 2. Tianna intertrigo Fairly mild. Continue with nystatin. No need for systemic antifungals 3. Stage I pressure ulcer. This is actually on her pannus. Likely just due to continued contact. Discontinue vancomycin and monitor 4. Bacteriuria May be colonization not really convinced that this is a true infection. We will continue with the ceftriaxone for now and monitor. Even if not felt to be a true urinary tract infection may elect to continue with antibiotics. 5. Debility: Patient has poor performance status at baseline is unsure when she transfers from chair to other sitting devices. Patient expressed that she would be open to going to a snf facility but certainly would not be her preference. Code Visit Inpatient E&M: 18074 Subs Hosp L2
--- NOTE | 2019-03-01 14:13 | PN_ITS ---
<Nestor Wiley - Last Filed: 03/01/19 14:08> Patient Problems: Active and Suspected Problems Cellulitis (Acute) Cellulitis of abdominal wall (Acute) Subjective: Pt c/o all over pain, aching, with any movement. None when sitting still. No chills. Fever still persistent, last at 1407 today 100.7. She is not SOB or requiring O2. She has no discomfort with her suprapubic cath. No surrounding cellulitic changes. Some urine leaking. She wants her own suprapubic replacement from home used when changes. She lives alone, she has some home health aids that come and help her with dressing changes. - Physical Exam General: Alert, Oriented x3, Cooperative HEENT: Atraumatic, PERRLA, EOMI, Normocephalic Neck: Supple, No JVD, Negative Carotid Bruits Lungs: Diminished Cardiovascular: Regular rate, No murmurs Abdomen: Bowel Sounds Present, Soft, Non Tender, Obese, - - alrge pannus, areas of erythema and skin breakdown c/w pressure sores, some annular lesions within larger erythematous areas which look candidal. The sacral decubitus does not appear to have cellulitic changes or purulent drainage. The posteriod wounds appear c/w pressure wounds with mild erythema with no other changes suggestive of cellulitis Extremities: No edema, Capillary Refill Less than 3 Seconds Skin: No rashes, No breakdown Musculoskeletal: No Tenderness to Palpation of Joints or Extremities Neurological: Cranial nerves II-XII grossly intact Psych/Mental Status: Normal Affect, Appropriate, Alert and oriented to time, place, person, mood and affect Vital Signs Temp Pulse Resp BP Pulse Ox 100.7 F H 97 18 137/72 H 95 03/01/19 14:07 03/01/19 14:07 03/01/19 14:07 03/01/19 14:07 03/01/19 14:07 Oxygen Flow Rate (L/min) 2.5 Oxygen Delivery Method Room Air Weight: 337 lb 1.388 oz Body Mass Index (BMI) 52.7 Intake and Output for Last 24 Hours 02/27/19 02/28/19 03/01/19 23:59 23:59 23:59 Intake Total 1785 / 1785 Output Total 1400 / 1400 Balance 385 / 385 Microbiology Past 72 Hours 04/18/19 22:40 Urine Culture - Preliminary Urine Catheter - Henry Presumptive E. coli Laboratory Tests Past 24 Hrs 02/28/19 02/28/19 02/28/19 22:10 22:10 22:10 WBC 15.6 H RBC 4.12 L Hgb 11.7 L Hct 38.0 MCV 92.2 MCH 28.4 MCHC 30.8 L RDW 17.5 H RDW Differential 58.8 H Plt Count 366 MPV 10.4 Immature Gran % (Auto) 0.300 Neut % (Auto) 89.9 H Lymph % (Auto) 5.8 L [place] % (Auto) 3.8 Eos % (Auto) 0.0 Baso % (Auto) 0.2 Absolute Neuts (auto) 14.0 H Absolute Lymphs (auto) 0.90 Total Counted Not Reportable Sodium 131 L Potassium 4.6 Chloride 96 L Carbon Dioxide 27.0 Anion Gap 8 BUN 31 H Creatinine 1.69 H Estim Creat Clear Calc 29.26 Est GFR (MDRD) Af Amer 38 L Est GFR (MDRD) Non-Af 32 L BUN/Creatinine Ratio 18.3 Glucose 159 H Lactic Acid Cancelled Calcium 9.6 Troponin I < 0.015 Urine Color Urine Clarity Urine pH Ur Specific [place] Urine Protein Urine Glucose (UA) Urine Ketones Urine Occult Blood Urine Nitrite Urine Bilirubin Urine Urobilinogen Ur Leukocyte Esterase Urine RBC Urine WBC Ur Squamous Epith Cells Urine Bacteria Urine Mucus 02/28/19 02/28/19 03/01/19 22:40 22:55 00:35 WBC RBC Hgb Hct MCV MCH MCHC RDW RDW Differential Plt Count MPV Immature Gran % (Auto) Neut % (Auto) Lymph % (Auto) [place] % (Auto) Eos % (Auto) Baso % (Auto) Absolute Neuts (auto) Absolute Lymphs (auto) Total Counted Sodium Potassium Chloride Carbon Dioxide Anion Gap BUN Creatinine Estim Creat Clear Calc Est GFR (MDRD) Af Amer Est GFR (MDRD) Non-Af BUN/Creatinine Ratio Glucose Lactic Acid Cancelled 1.5 Calcium Troponin I Urine Color Brown Urine Clarity Turbid Urine pH 7.0 Ur Specific [place] 1.010 Urine Protein 500 H Urine Glucose (UA) Normal Urine Ketones 5 H Urine Occult Blood 250 H Urine Nitrite Negative Urine Bilirubin Negative Urine Urobilinogen Normal Ur Leukocyte Esterase 500 H Urine RBC 50-100 SEEN Urine WBC >100 SEEN Ur Squamous Epith Cells 0 SEEN Urine Bacteria 4+ Urine Mucus 0 SEEN 03/01/19 03/01/19 06:20 06:20 WBC 11.4 H RBC 3.37 L Hgb 9.6 L Hct 30.5 L MCV 90.5 MCH 28.5 MCHC 31.5 L RDW 17.4 H RDW Differential 55.3 H Plt Count 253 MPV 9.7 Immature Gran % (Auto) Neut % (Auto) Lymph % (Auto) [place] % (Auto) Eos % (Auto) Baso % (Auto) Absolute Neuts (auto) Absolute Lymphs (auto) Total Counted Sodium 133 L Potassium 3.9 Chloride 101 Carbon Dioxide 26.0 Anion Gap 6 BUN 28 H Creatinine 1.30 H Estim Creat Clear Calc 38.04 Est GFR (MDRD) Af Amer 52 L Est GFR (MDRD) Non-Af 43 L BUN/Creatinine Ratio 21.5 H Glucose 126 H Lactic Acid Calcium 8.4 L Troponin I Urine Color Urine Clarity Urine pH Ur Specific [place] Urine Protein Urine Glucose (UA) Urine Ketones Urine Occult Blood Urine Nitrite Urine Bilirubin Urine Urobilinogen Ur Leukocyte Esterase Urine RBC Urine WBC Ur Squamous Epith Cells Urine Bacteria Urine Mucus POC Glucose 03/01/19 03/01/19 11:39 06:45 POC Glucose 103 120 H Medical Necessity - Tobacco Use Smoking Status: Former smoker Assessment/Plan All Active Problems Cellulitis (Acute) Cellulitis of abdominal wall (Acute) Severe sepsis (Acute) Dehydration (Acute) Sepsis (Acute) Acute metabolic encephalopathy (Acute) MICHAELLE (acute kidney injury) (Acute) Acute cystitis (Ruled-out) Suprapubic catheter dysfunction (Acute) UTI (urinary tract infection) (Acute) 1. Acute sepsis - possibly 2/2 URI, UTI less likely probable colonization, less likely cellulitis as she appears to have chronic pressure wounds and candidal changes. Regardless, Rocephin will cover both URI and E coli UTI - prior UTIs wi th E coli were resistant to fluoroquinolones. She will need her suprapubic changed. WBCs have improved. Fever still present. Continue diflucan for candidiasis. 2. Sacral pressure ulcer, other wounds - wound care consulted. 3. ? MICHAELLE - baseline unclear. Will trend. Likely underlying CKD. 4.Chronic CHF - held, IV fluids administered. 5. Morbid obesity, debility, poor self care - worsening at home, she does not seem to be effectively caring for herself. She is also having additional difficulty even with her jensen lift at home. 6. Chronic pain - cymbalta 7. VITA - CPAP DVT ppx lovenox DC planning: ?SNF vs [facility], multiple recent admissions for the same. This patient was seen by Nestor Wiley PA-C under the supervision of Dr. Collazo <Luís Collazo - Last Filed: 03/01/19 14:54> - Physical Exam General: Alert, Cooperative HEENT: Atraumatic, Normocephalic Lungs: Clear to auscultation, Diminished Cardiovascular: Regular rate, No murmurs Abdomen: Bowel Sounds Present, Soft, Non Tender, Obese, - Extremities: No edema, Capillary Refill Less than 3 Seconds Skin: - - Skin slight Tianna intertrigo underneath her pannus. Appears to be a stage I ulcer over the left side of her pannus on the lateral aspect. Superficial ulcerations without purulence noted underneath her pannus Psych/Mental Status: Normal Affect Vital Signs Temp Pulse Resp BP Pulse Ox 38.2 C H 97 18 137/72 H 95 03/01/19 14:07 03/01/19 14:07 03/01/19 14:07 03/01/19 14:07 03/01/19 14:07 Oxygen Flow Rate (L/min) 2.5 Oxygen Delivery Method Room Air Weight: 152.9 kg Body Mass Index (BMI) 52.7 Intake and Output for Last 24 Hours 02/27/19 02/28/19 03/01/19 23:59 23:59 23:59 Intake Total 1785 / 1785 Output Total 1400 / 1400 Balance 385 / 385 Microbiology Past 72 Hours 02/28/19 22:40 Urine Culture - Preliminary Urine Catheter - Henry Presumptive E. coli Laboratory Tests Past 24 Hrs 02/28/19 02/28/19 02/28/19 22:10 22:10 22:10 WBC 15.6 H RBC 4.12 L Hgb 11.7 L Hct 38.0 MCV 92.2 MCH 28.4 MCHC 30.8 L RDW 17.5 H RDW Differential 58.8 H Plt Count 366 MPV 10.4 Immature Gran % (Auto) 0.300 Neut % (Auto) 89.9 H Lymph % (Auto) 5.8 L [place] % (Auto) 3.8 Eos % (Auto) 0.0 Baso % (Auto) 0.2 Absolute Neuts (auto) 14.0 H Absolute Lymphs (auto) 0.90 Total Counted Not Reportable Sodium 131 L Potassium 4.6 Chloride 96 L Carbon Dioxide 27.0 Anion Gap 8 BUN 31 H Creatinine 1.69 H Estim Creat Clear Calc 29.26 Est GFR (MDRD) Af Amer 38 L Est GFR (MDRD) Non-Af 32 L BUN/Creatinine Ratio 18.3 Glucose 159 H Lactic Acid Cancelled Calcium 9.6 Troponin I < 0.015 Urine Color Urine Clarity Urine pH Ur Specific [place] Urine Protein Urine Glucose (UA) Urine Ketones Urine Occult Blood Urine Nitrite Urine Bilirubin Urine Urobilinogen Ur Leukocyte Esterase Urine RBC Urine WBC Ur Squamous Epith Cells Urine Bacteria Urine Mucus 02/28/19 02/28/19 03/01/19 22:40 22:55 00:35 WBC RBC Hgb Hct MCV MCH MCHC RDW RDW Differential Plt Count MPV Immature Gran % (Auto) Neut % (Auto) Lymph % (Auto) [place] % (Auto) Eos % (Auto) Baso % (Auto) Absolute Neuts (auto) Absolute Lymphs (auto) Total Counted Sodium Potassium Chloride Carbon Dioxide Anion Gap BUN Creatinine Estim Creat Clear Calc Est GFR (MDRD) Af Amer Est GFR (MDRD) Non-Af BUN/Creatinine Ratio Glucose Lactic Acid Cancelled 1.5 Calcium Troponin I Urine Color Brown Urine Clarity Turbid Urine pH 7.0 Ur Specific [place] 1.010 Urine Protein 500 H Urine Glucose (UA) Normal Urine Ketones 5 H Urine Occult Blood 250 H Urine Nitrite Negative Urine Bilirubin Negative Urine Urobilinogen Normal Ur Leukocyte Esterase 500 H Urine RBC 50-100 SEEN Urine WBC >100 SEEN Ur Squamous Epith Cells 0 SEEN Urine Bacteria 4+ Urine Mucus 0 SEEN 03/01/19 03/01/19 06:20 06:20 WBC 11.4 H RBC 3.37 L Hgb 9.6 L Hct 30.5 L MCV 90.5 MCH 28.5 MCHC 31.5 L RDW 17.4 H RDW Differential 55.3 H Plt Count 253 MPV 9.7 Immature Gran % (Auto) Neut % (Auto) Lymph % (Auto) [place] % (Auto) Eos % (Auto) Baso % (Auto) Absolute Neuts (auto) Absolute Lymphs (auto) Total Counted Sodium 133 L Potassium 3.9 Chloride 101 Carbon Dioxide 26.0 Anion Gap 6 BUN 28 H Creatinine 1.30 H Estim Creat Clear Calc 38.04 Est GFR (MDRD) Af Amer 52 L Est GFR (MDRD) Non-Af 43 L BUN/Creatinine Ratio 21.5 H Glucose 126 H Lactic Acid Calcium 8.4 L Troponin I Urine Color Urine Clarity Urine pH Ur Specific [place] Urine Protein Urine Glucose (UA) Urine Ketones Urine Occult Blood Urine Nitrite Urine Bilirubin Urine Urobilinogen Ur Leukocyte Esterase Urine RBC Urine WBC Ur Squamous Epith Cells Urine Bacteria Urine Mucus POC Glucose 03/01/19 03/01/19 11:39 06:45 POC Glucose 103 120 H Assessment/Plan Patient seen and examined independently. Data reviewed. I agree with the above note by the physician assistant paralegal. 1. Systemic inflammatory response syndrome * Clear the patient actually has a true bacterial infection. I do not feel the patient has cellulitis and will discontinue the vancomycin. Patient may have a UTI but patient does have a chronic Henry so this could be just colonization. Also patient may have just upper respiratory infection. Will discontinue the vancomycin and monitor the patient overnight. 2. Tianna intertrigo * Fairly mild. Continue with nystatin. No need for systemic antifungals 3. Stage I pressure ulcer. This is actually on her pannus. Likely just due to continued contact. Discontinue vancomycin and monitor 4. Bacteriuria * May be colonization not really convinced that this is a true infection. We will continue with the ceftriaxone for now and monitor. Even if not felt to be a true urinary tract infection may elect to continue with antibiotics. 5. Debility: Patient has poor performance status at baseline is unsure when she transfers from chair to other sitting devices. Patient expressed that she would be open to going to a residential facility but certainly would not be her preference. Code Visit Inpatient E&M: [id number] Subs Hosp L2
--- NOTE | 2019-03-01 14:13 | NURSING ---
wound photo: left lower abdomen
--- NOTE | 2019-03-01 14:14 | NURSING ---
wound photo: sacrum
--- NOTE | 2019-03-01 14:15 | NURSING ---
wound photo: left posterior thigh
[2019-03-01 17:20] LABS: Bedside Glucose 137 mg/dL (70-110)
[2019-03-01] MEDS: Pravastatin 20 MG Tablet PO (22:57)
[2019-03-01] MEDS: levETIRAcetam 500 MG Tablet PO (22:59)
[2019-03-01] MEDS: 0.9% NaCl Peripheral Flush Adult/Peds IV ×2 (23:09→23:14)
[2019-03-02 00:21] LABS: Bedside Glucose 105 mg/dL (70-110)
[2019-03-02 04:26] VITALS: BP 114/47; PULSE 83; RESP 18; TEMP 36.9; O2SAT 98
[2019-03-02] MEDS: Gabapentin 100 MG Capsule PO ×3 (06:43→22:38)
[2019-03-02] MEDS: Venlafaxine HCl 75 MG Tablet PO ×3 (06:43→22:40)
[2019-03-02 06:55] LABS: Bedside Glucose 124 mg/dL (70-110)
[2019-03-02 07:27] VITALS: O2SAT 96
[2019-03-02] MEDS: Cyanocobalamin 500 MCG Tablet 1000 MCG PO (08:45)
[2019-03-02] MEDS: Multivitamins,Ther W-Minerals Tablet 1 TABLET PO ×3 (08:45→16:17)
[2019-03-02] MEDS: Vitamin E 400 UNITS Capsule PO ×2 (08:45→16:17)
[2019-03-02] MEDS: Famotidine 20 MG Tablet PO ×2 (08:47→22:41)
[2019-03-02] MEDS: Tolterodine Tartrate 4 MG CAP.SA PO (08:47)
[2019-03-02] MEDS: Pantoprazole Sodium 40 MG Tablet PO (08:48)
[2019-03-02] MEDS: Nystatin Powder 15gm Bottle 1 APPLIC TOPICAL ×2 (11:41→22:38)
[2019-03-02] MEDS: DULoxetine Hcl 30 MG Capsule PO (11:42)
[2019-03-02] MEDS: Fluconazole 100 MG Tablet 200 MG PO (11:44)
[2019-03-02] MEDS: Enoxaparin 40 MG/0.4 ML Syringe SC ×2 (11:45→22:42)
[2019-03-02 11:47] VITALS: BP 141/66; PULSE 93
[2019-03-02] MEDS: Metoprolol(XL)Succ 25 MG Tablet PO (11:47)
[2019-03-02] MEDS: Glucerna Shake 120 ML LIQUID PO ×3 (11:52→16:15)
[2019-03-02] MEDS: Acetaminophen 325 MG Tablet 650 MG PO (11:53)
[2019-03-02 11:57] VITALS: BP 141/66; PULSE 93; RESP 18; TEMP 37.5; O2SAT 96
[2019-03-02 13:10] LABS: Bedside Glucose 120 mg/dL (70-110)
--- NOTE | 2019-03-02 14:07 | PCM.PROGNOTE ---
<Nestor Wiley - Last Filed: 03/02/19 14:07> Patient Problems: Active and Suspected Problems Cellulitis (Acute) Cellulitis of abdominal wall (Acute) Subjective: Pt resting comfortably in bed NAD. Still some ongoing generalized aching body pain with movement. She has no irritation with the cath site. No fevers/chills. No abdominal pain. No cough/SOB. She has been taking macrobid 100 qhs as a ppx dose daily, prn cipro at home. - Physical Exam General: Alert, Oriented x3, Cooperative HEENT: Atraumatic, PERRLA, EOMI, Normocephalic Neck: Supple, No JVD, Negative Carotid Bruits Lungs: Clear to auscultation, Normal air movement Cardiovascular: Regular rate, No murmurs Abdomen: Bowel Sounds Present, Soft, Non Tender, Obese Extremities: No edema, Capillary Refill Less than 3 Seconds Skin: No rashes, No breakdown Musculoskeletal: No Tenderness to Palpation of Joints or Extremities Neurological: Cranial nerves II-XII grossly intact Psych/Mental Status: Normal Affect, Appropriate, Alert and oriented to time, place, person, mood and affect Vital Signs Temp Pulse Resp BP Pulse Ox 99.5 F H 93 18 141/66 H 96 03/02/19 11:57 03/02/19 11:57 03/02/19 11:57 03/02/19 11:57 03/02/19 11:57 Oxygen Flow Rate (L/min) 2 Oxygen Delivery Method Room Air Weight: 337 lb 1.388 oz Body Mass Index (BMI) 52.7 Intake and Output for Last 24 Hours 02/28/19 03/01/19 03/02/19 23:59 23:59 23:59 Intake Total 2641 / 2641 1034 / 1034 Output Total 1825 / 1825 1989 / 1989 Balance 816 / 816 -956 / -956 Microbiology Past 72 Hours 02/28/19 22:40 Urine Culture - Preliminary Urine Catheter - Henry Presumptive E. coli POC Glucose 03/02/19 03/02/19 03/01/19 12:25 06:44 22:53 POC Glucose 120 H 124 H 105 03/01/19 17:13 POC Glucose 137 H Medical Necessity - Tobacco Use Smoking Status: Former smoker Assessment/Plan All Active Problems Cellulitis (Acute) Cellulitis of abdominal wall (Acute) Severe sepsis (Acute) Dehydration (Acute) Sepsis (Acute) Acute metabolic encephalopathy (Acute) MICHAELLE (acute kidney injury) (Acute) Acute cystitis (Ruled-out) Suprapubic catheter dysfunction (Acute) UTI (urinary tract infection) (Acute) 1. Acute sepsis - questionable source, likely not cellulitis. Possibly UTI. E coli previously sensitive to macrobid but she has been on this at home. Will wait for final C/S, and reportedly a second non lactose naval architect specialist is growing out now as well. Continue rocephin. 2. Sacral pressure ulcer, other wounds - wound care consulted. No acute cellulitic changes appreciated. Continue nystatin/diflucan. 3. ? MICHAELLE - baseline unclear. Will trend. Likely underlying CKD. Improving. 4.Chronic CHF - held, IV fluids administered. 5. Morbid obesity, debility, poor self care - lives alone with HH aids. 6. Chronic pain - cymbalta 7. VITA DVT ppx lovenox DC planning: Await final C&S. This patient was seen by Nestor Wiley PA-C under the supervision of Dr. Collazo <Luís Collazo - Last Filed: 03/02/19 14:35> - Physical Exam General: Alert, Cooperative HEENT: Atraumatic, Normocephalic Lungs: Clear to auscultation, Normal air movement Cardiovascular: Regular rate, No murmurs Abdomen: Bowel Sounds Present, Soft, Non Tender Extremities: No edema, No Calf Tenderness Skin: - - superficial ulcerations on left side of pannus. stage 1 pressure ulcer on left lateral pannus. Psych/Mental Status: Normal Affect, Appropriate Vital Signs Temp Pulse Resp BP Pulse Ox 37.5 C H 93 18 141/66 H 96 03/02/19 11:57 03/02/19 11:57 03/02/19 11:57 03/02/19 11:57 03/02/19 11:57 Oxygen Flow Rate (L/min) 2 Oxygen Delivery Method Room Air Weight: 152.9 kg Body Mass Index (BMI) 52.7 Intake and Output for Last 24 Hours 02/28/19 03/01/19 03/02/19 23:59 23:59 23:59 Intake Total 2641 / 2641 1034 / 1034 Output Total 1825 / 1825 1989 Balance 816 / 816 -956 / -956 Microbiology Past 72 Hours 02/28/19 22:40 Urine Culture - Preliminary Urine Catheter - Henry Presumptive E. coli POC Glucose 03/02/19 03/02/19 03/01/19 12:25 06:44 22:53 POC Glucose 120 H 124 H 105 03/01/19 17:13 POC Glucose 137 H Assessment/Plan Patient seen and examined independently. Data reviewed. I agree with the above note by the physician mobile sales assistant. 1. Systemic inflammatory response syndrome Clear the patient actually has a true bacterial infection. I do not feel the patient has cellulitis and will discontinue the vancomycin. Patient may have a UTI but patient does have a chronic Henry so this could be just colonization. Also patient may have just upper respiratory infection. Will discontinue the vancomycin and monitor the patient overnight. 2. Tianna intertrigo Fairly mild. Continue with nystatin. No need for systemic antifungals 3. Stage I pressure ulcer. This is actually on her pannus. Likely just due to continued contact. Discontinue vancomycin and monitor 4. Bacteriuria May be colonization not really convinced that this is a true infection. We will continue with the ceftriaxone for now and monitor. Even if not felt to be a true urinary tract infection may elect to continue with antibiotics. Await final urine culture results, thus far growing out E. coli. 5. Debility: Patient has poor performance status at baseline is unsure when she transfers from chair to other sitting devices. Patient expressed that she would be open to going to a detention facility but certainly would not be her preference. Likely to return home. Code Visit Inpatient E&M: 72032 [facility] L2
--- NOTE | 2019-03-02 14:13 | PN_ITS ---
<Nestor Wiley - Last Filed: 03/02/19 14:07> Patient Problems: Active and Suspected Problems Cellulitis (Acute) Cellulitis of abdominal wall (Acute) Subjective: Pt resting comfortably in bed NAD. Still some ongoing generalized aching body pain with movement. She has no irritation with the cath site. No fevers/chills. No abdominal pain. No cough/SOB. She has been taking macrobid 100 qhs as a ppx dose daily, prn cipro at home. - Physical Exam General: Alert, Oriented x3, Cooperative HEENT: Atraumatic, PERRLA, EOMI, Normocephalic Neck: Supple, No JVD, Negative Carotid Bruits Lungs: Clear to auscultation, Normal air movement Cardiovascular: Regular rate, No murmurs Abdomen: Bowel Sounds Present, Soft, Non Tender, Obese Extremities: No edema, Capillary Refill Less than 3 Seconds Skin: No rashes, No breakdown Musculoskeletal: No Tenderness to Palpation of Joints or Extremities Neurological: Cranial nerves II-XII grossly intact Psych/Mental Status: Normal Affect, Appropriate, Alert and oriented to time, place, person, mood and affect Vital Signs Temp Pulse Resp BP Pulse Ox 99.5 F H 93 18 141/66 H 96 03/02/19 11:57 03/02/19 11:57 03/02/19 11:57 03/02/19 11:57 03/02/19 11:57 Oxygen Flow Rate (L/min) 2 Oxygen Delivery Method Room Air Weight: 337 lb 1.388 oz Body Mass Index (BMI) 52.7 Intake and Output for Last 24 Hours 02/28/19 03/01/19 03/02/19 23:59 23:59 23:59 Intake Total 2641 / 2641 1034 / 1034 Output Total 1825 / 1825 1989 / 1989 Balance 816 / 816 -956 / -956 Microbiology Past 72 Hours 02/28/19 22:40 Urine Culture - Preliminary Urine Catheter - Henry Presumptive E. coli POC Glucose 03/02/19 03/02/19 03/01/19 12:25 06:44 22:53 POC Glucose 120 H 124 H 105 03/01/19 17:13 POC Glucose 137 H Medical Necessity - Tobacco Use Smoking Status: Former smoker Assessment/Plan All Active Problems Cellulitis (Acute) Cellulitis of abdominal wall (Acute) Severe sepsis (Acute) Dehydration (Acute) Sepsis (Acute) Acute metabolic encephalopathy (Acute) MICHAELLE (acute kidney injury) (Acute) Acute cystitis (Ruled-out) Suprapubic catheter dysfunction (Acute) UTI (urinary tract infection) (Acute) 1. Acute sepsis - questionable source, likely not cellulitis. Possibly UTI. E coli previously sensitive to macrobid but she has been on this at home. Will wait for final C/S, and reportedly a second non lactose insulation worker furnace installer is growing out now as well. Continue rocephin. 2. Sacral pressure ulcer, other wounds - wound care consulted. No acute cellulitic changes appreciated. Continue nystatin/diflucan. 3. ? MICHAELLE - baseline unclear. Will trend. Likely underlying CKD. Improving. 4.Chronic CHF - held, IV fluids administered. 5. Morbid obesity, debility, poor self care - lives alone with HH aids. 6. Chronic pain - cymbalta 7. VITA DVT ppx lovenox DC planning: Await final C&S. This patient was seen by Nestor Wiley PA-C under the supervision of Dr. Collazo <Luís Collazo - Last Filed: 03/02/19 14:35> - Physical Exam General: Alert, Cooperative HEENT: Atraumatic, Normocephalic Lungs: Clear to auscultation, Normal air movement Cardiovascular: Regular rate, No murmurs Abdomen: Bowel Sounds Present, Soft, Non Tender Extremities: No edema, No Calf Tenderness Skin: - - superficial ulcerations on left side of pannus. stage 1 pressure ulcer on left lateral pannus. Psych/Mental Status: Normal Affect, Appropriate Vital Signs Temp Pulse Resp BP Pulse Ox 37.5 C H 93 18 141/66 H 96 03/02/19 11:57 03/02/19 11:57 03/02/19 11:57 03/02/19 11:57 03/02/19 11:57 Oxygen Flow Rate (L/min) 2 Oxygen Delivery Method Room Air Weight: 152.9 kg Body Mass Index (BMI) 52.7 Intake and Output for Last 24 Hours 02/28/19 03/01/19 03/02/19 23:59 23:59 23:59 Intake Total 2641 / 2641 1034 / 1034 Output Total 1825 / 1825 1989 Balance 816 / 816 -956 / -956 Microbiology Past 72 Hours 02/28/19 22:40 Urine Culture - Preliminary Urine Catheter - Henry Presumptive E. coli POC Glucose 03/02/19 03/02/19 03/01/19 12:25 06:44 22:53 POC Glucose 120 H 124 H 105 03/01/19 17:13 POC Glucose 137 H Assessment/Plan Patient seen and examined independently. Data reviewed. I agree with the above note by the physician assistant plant controller. 1. Systemic inflammatory response syndrome * Clear the patient actually has a true bacterial infection. I do not feel the patient has cellulitis and will discontinue the vancomycin. Patient may have a UTI but patient does have a chronic Henry so this could be just colonization. Also patient may have just upper respiratory infection. Will discontinue the vancomycin and monitor the patient overnight. 2. Tianna intertrigo * Fairly mild. Continue with nystatin. No need for systemic antifungals 3. Stage I pressure ulcer. This is actually on her pannus. Likely just due to continued contact. Discontinue vancomycin and monitor 4. Bacteriuria * May be colonization not really convinced that this is a true infection. We will continue with the ceftriaxone for now and monitor. Even if not felt to be a true urinary tract infection may elect to continue with antibiotics. * Await final urine culture results, thus far growing out E. coli. 5. Debility: * Patient has poor performance status at baseline is unsure when she transfers from chair to other sitting devices. Patient expressed that she would be open to going to a care home facility but certainly would not be her preference. * Likely to return home. Code Visit Inpatient E&M: 58945 [facility]osp L2
[2019-03-02 15:56] VITALS: BP 142/63; PULSE 93; RESP 18; TEMP 37.1; O2SAT 94
[2019-03-02 16:41] LABS: Bedside Glucose 122 mg/dL (70-110)
[2019-03-02 22:26] VITALS: BP 131/59; PULSE 92; RESP 16; TEMP 37; O2SAT 96
[2019-03-02] MEDS: levETIRAcetam 500 MG Tablet PO (22:41)
[2019-03-02 23:16] LABS: Bedside Glucose 123 mg/dL (70-110)
[2019-03-03 02:23] VITALS: BP 123/70; PULSE 86; RESP 16; TEMP 37.3; O2SAT 98
[2019-03-03] MEDS: Acetaminophen 325 MG Tablet 650 MG PO (02:24)
[2019-03-03] MEDS: DiphenhydrAMINE 25 MG Capsule PO (02:26)
[2019-03-03] MEDS: 0.9% NaCl Peripheral Flush Adult/Peds IV ×3 (05:18→22:52)
[2019-03-03] MEDS: Venlafaxine HCl 75 MG Tablet PO ×3 (05:21→22:57)
[2019-03-03] MEDS: Gabapentin 100 MG Capsule PO (05:22)
[2019-03-03 06:41] LABS: Bedside Glucose 108 mg/dL (70-110)
[2019-03-03 07:07] VITALS: O2SAT 98
[2019-03-03 07:50] VITALS: BP 126/72; PULSE 85; RESP 18; TEMP 37.1; O2SAT 97
[2019-03-03] MEDS: Multivitamins,Ther W-Minerals Tablet 1 TABLET PO ×4 (07:53→22:57)
[2019-03-03] MEDS: Vitamin E 400 UNITS Capsule PO ×2 (07:53→18:11)
[2019-03-03] MEDS: Cyanocobalamin 500 MCG Tablet 1000 MCG PO (07:55)
[2019-03-03] MEDS: Famotidine 20 MG Tablet PO ×2 (07:55→22:57)
[2019-03-03] MEDS: Glucerna Shake 120 ML LIQUID PO (07:56)
[2019-03-03] MEDS: Fluconazole 100 MG Tablet 200 MG PO (11:16)
[2019-03-03] MEDS: Tolterodine Tartrate 4 MG CAP.SA PO (11:16)
[2019-03-03] MEDS: Pantoprazole Sodium 40 MG Tablet PO (11:16)
[2019-03-03] MEDS: DULoxetine Hcl 30 MG Capsule PO (11:16)
[2019-03-03] MEDS: Enoxaparin 40 MG/0.4 ML Syringe SC ×2 (11:17→22:57)
[2019-03-03] MEDS: Nystatin Powder 15gm Bottle 1 APPLIC TOPICAL ×2 (11:17→22:58)
[2019-03-03 11:19] VITALS: BP 126/72; PULSE 85
[2019-03-03] MEDS: Metoprolol(XL)Succ 25 MG Tablet PO (11:19)
[2019-03-03] MEDS: Baclofen 10 MG Tablet PO ×2 (11:43→22:52)
--- NOTE | 2019-03-03 12:14 | PCM.PROGNOTE ---
<Nestor Wiley - Last Filed: 03/03/19 12:14> Patient Problems: Active and Suspected Problems Cellulitis (Acute) Cellulitis of abdominal wall (Acute) Subjective: Pt does not want 4x daily blood checks, only checks once at home. She has not required insulin sliding scale while here so will dc. She also asked that some medication corrections be made as her current meds she does not believe match her most updated med list - someone will bring a copy today so we can adjust. She has some increased neuropathic pain in her right arm today and would like her neurontin increased to her prior dose. Otherwise, she is feeling better and is eager for discharge. - Physical Exam General: Alert, Oriented x3, Cooperative HEENT: Atraumatic, PERRLA, EOMI, Normocephalic Neck: Supple, No JVD, Negative Carotid Bruits Lungs: Clear to auscultation, Normal air movement Cardiovascular: Regular rate, No murmurs Abdomen: Bowel Sounds Present, Soft, Non Tender, Obese Extremities: No edema, Capillary Refill Less than 3 Seconds Skin: No rashes, No breakdown Musculoskeletal: No Tenderness to Palpation of Joints or Extremities Neurological: Cranial nerves II-XII grossly intact Psych/Mental Status: Normal Affect, Appropriate, Alert and oriented to time, place, person, mood and affect Vital Signs Temp Pulse Resp BP Pulse Ox 98.7 F 85 18 126/72 H 97 03/03/19 07:50 03/03/19 11:19 03/03/19 07:50 03/03/19 11:19 03/03/19 07:50 Oxygen Flow Rate (L/min) 2 Oxygen Delivery Method Room Air Weight: 337 lb 1.388 oz Body Mass Index (BMI) 52.7 Intake and Output for Last 24 Hours 03/01/19 03/02/19 03/03/19 23:59 23:59 23:59 Intake Total 2641 / 2641 1959 / 1959 1240 / 1240 Output Total 1825 / 1825 3290 / 3290 2074 / 2074 Balance 816 / 816 -1331 / -1331 -835 / -835 Microbiology Past 72 Hours 02/28/19 22:40 Urine Culture - Preliminary Urine Catheter - Henry Presumptive E. coli GNR non human resources receptionist 02/28/19 22:15 Blood Culture - Preliminary Blood Culture (Wb) - Left Hand No growth in 48 hours. 02/28/19 22:10 Blood Culture - Preliminary Blood Culture (Wb) - Anticubital Left No growth in 48 hours. POC Glucose 03/03/19 03/02/19 03/02/19 06:35 22:49 15:54 POC Glucose 108 123 H 122 H 03/02/19 12:25 POC Glucose 120 H Medical Necessity - Tobacco Use Smoking Status: Former smoker Assessment/Plan All Active Problems Cellulitis (Acute) Cellulitis of abdominal wall (Acute) Severe sepsis (Acute) Dehydration (Acute) Sepsis (Acute) Acute metabolic encephalopathy (Acute) MICHAELLE (acute kidney injury) (Acute) Acute cystitis (Ruled-out) Suprapubic catheter dysfunction (Acute) UTI (urinary tract infection) (Acute) 1. Acute sepsis -2/2 acute recurrent UTI. Continue rocephin. -E coli + lactose nonfermenter. hx of flouroquinolone resistant e coli, MDR pseudomonas. -consult urology tomorrow for changing suprapubic cath prior to DC. -Final C&S pending. -Infectious disease to see pt tomorrow and assist with plan for further treatment. 2. Sacral pressure ulcer, other wounds - wound care consulted. No acute cellulitic changes appreciated. Continue nystatin/diflucan. 3. ? MICHAELLE - baseline unclear. recheck in AM prior to DC. 4.Chronic CHF - no acute exacerbation. restart lasix at dc 5. Morbid obesity, debility, poor self care - lives alone with HH aids. 6. Chronic pain - cymbalta 7. VITA 8. Candidal intertrigo - topical nystatin + diflucan (received 3 doses so far) DVT ppx lovenox DC planning: Await final C&S. This patient was seen by Nestor Wiley PA-C under the supervision of Dr. العلي <Lauro العلي - Last Filed: 03/03/19 14:44> Subjective: Patient has suprapubic catheter. Patient has bilateral lower extremity weakness and is on air bed. 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 Has intertriginous yeast infection - Physical Exam General: Alert, Oriented x3, Cooperative HEENT: Atraumatic, PERRLA, EOMI, Normocephalic Neck: Supple, No JVD, Negative Carotid Bruits Lungs: No rhonchi, No wheeze, No rales, Diminished Cardiovascular: Regular rate, Regular Rhythm, Normal S1, Normal S2, No murmurs Abdomen: Bowel Sounds Present, Soft, Non Tender, Obese Extremities: Capillary Refill Less than 3 Seconds, Edema Skin: Rash Present Musculoskeletal: No Tenderness to Palpation of Joints or Extremities, Arthritic Changes, Muscle Wasting Neurological: Cranial nerves II-XII grossly intact, - - Bilateral lower extremity weakness, 2/5 at major joints. Psych/Mental Status: Normal Affect, Appropriate Vital Signs Temp Pulse Resp BP Pulse Ox 98.7 F 85 18 126/72 H 97 03/03/19 07:50 03/03/19 11:19 03/03/19 07:50 03/03/19 11:19 03/03/19 07:50 Oxygen Flow Rate (L/min) 2 Oxygen Delivery Method Room Air Weight: 337 lb 1.388 oz Body Mass Index (BMI) 52.7 Intake and Output for Last 24 Hours 03/01/19 03/02/19 03/03/19 23:59 23:59 23:59 Intake Total 2641 / 2641 1959 / 1959 1240 / 1240 Output Total 1825 / 1825 3290 / 3290 2075 / 2075 Balance 816 / 816 -1331 / -1331 -835 / -835 Microbiology Past 72 Hours 02/28/19 22:40 Urine Culture - Preliminary Urine Catheter - Henry Presumptive E. coli GNR non human resources receptionist 02/28/19 22:15 Blood Culture - Preliminary Blood Culture (Wb) - Left Hand No growth in 48 hours. 02/28/19 22:10 Blood Culture - Preliminary Blood Culture (Wb) - Anticubital Left No growth in 48 hours. POC Glucose 03/03/19 03/02/19 03/02/19 06:35 22:49 15:54 POC Glucose 108 123 H 122 H Assessment/Plan This patient was seen in conjunction with Nestor ROCHE. I have independently interviewed and examined the patient and reviewed pertinent history, examination findings, laboratory and plan of management. I have reviewed the note and agree with the documented findings with the few additional points. In brief, patient is admitted for sepsis secondary to acute on recurrent UTI. Current urine culture is growing E. coli and gram-negative odin, lactose human resources receptionist. Patient had sacral pressure ulcer, grade 1. Currently on air bed. Patient has urologist to change his suprapubic catheter. Infectious disease consult to assist discharge antibiotic. Patient does not want to go to SNF but home. I have discussed my assessment with Nestor ROCHE and orders have been reviewed. Code Visit Inpatient E&M: 90859 Subs Hosp L2
--- NOTE | 2019-03-03 12:20 | PN_ITS ---
<Nestor Wiley - Last Filed: 03/03/19 12:14> Patient Problems: Active and Suspected Problems Cellulitis (Acute) Cellulitis of abdominal wall (Acute) Subjective: Pt does not want 4x daily blood checks, only checks once at home. She has not required insulin sliding scale while here so will dc. She also asked that some m edication corrections be made as her current meds she does not believe match her most updated med list - someone will bring a copy today so we can adjust. She has some increased neuropathic pain in her right arm today and would like her neurontin increased to her prior dose. Otherwise, she is feeling better and is eager for discharge. - Physical Exam General: Alert, Oriented x3, Cooperative HEENT: Atraumatic, PERRLA, EOMI, Normocephalic Neck: Supple, No JVD, Negative Carotid Bruits Lungs: Clear to auscultation, Normal air movement Cardiovascular: Regular rate, No murmurs Abdomen: Bowel Sounds Present, Soft, Non Tender, Obese Extremities: No edema, Capillary Refill Less than 3 Seconds Skin: No rashes, No breakdown Musculoskeletal: No Tenderness to Palpation of Joints or Extremities Neurological: Cranial nerves II-XII grossly intact Psych/Mental Status: Normal Affect, Appropriate, Alert and oriented to time, place, person, mood and affect Vital Signs Temp Pulse Resp BP Pulse Ox 98.7 F 85 18 126/72 H 97 03/03/19 07:50 03/03/19 11:19 03/03/19 07:50 03/03/19 11:19 03/03/19 07:50 Oxygen Flow Rate (L/min) 2 Oxygen Delivery Method Room Air Weight: 337 lb 1.388 oz Body Mass Index (BMI) 52.7 Intake and Output for Last 24 Hours 03/01/19 03/02/19 03/03/19 23:59 23:59 23:59 Intake Total 2641 / 2641 1959 / 1959 1240 / 1240 Output Total 1825 / 1825 3290 / 3290 2074 / 2074 Balance 816 / 816 -1331 / -1331 -835 / -835 Microbiology Past 72 Hours 02/28/19 22:40 Urine Culture - Preliminary Urine Catheter - Henry Presumptive E. coli GNR non stock puller 02/28/19 22:15 Blood Culture - Preliminary Blood Culture (Wb) - Left Hand No growth in 48 hours. 02/28/19 22:10 Blood Culture - Preliminary Blood Culture (Wb) - Anticubital Left No growth in 48 hours. POC Glucose 03/03/19 03/02/19 03/02/19 06:35 22:49 15:54 POC Glucose 108 123 H 122 H 03/02/19 12:25 POC Glucose 120 H Medical Necessity - Tobacco Use Smoking Status: Former smoker Assessment/Plan All Active Problems Cellulitis (Acute) Cellulitis of abdominal wall (Acute) Severe sepsis (Acute) Dehydration (Acute) Sepsis (Acute) Acute metabolic encephalopathy (Acute) MICHAELLE (acute kidney injury) (Acute) Acute cystitis (Ruled-out) Suprapubic catheter dysfunction (Acute) UTI (urinary tract infection) (Acute) 1. Acute sepsis -2/2 acute recurrent UTI. Continue rocephin. -E coli + lactose nonfermenter. hx of flouroquinolone resistant e coli, MDR pseudomonas. -consult urology tomorrow for changing suprapubic cath prior to DC. -Final C&S pending. -Infectious disease to see pt tomorrow and assist with plan for further treatment. 2. Sacral pressure ulcer, other wounds - wound care consulted. No acute cellulitic changes appreciated. Continue nystatin/diflucan. 3. ? MICHAELLE - baseline unclear. recheck in AM prior to DC. 4.Chronic CHF - no acute exacerbation. restart lasix at dc 5. Morbid obesity, debility, poor self care - lives alone with HH aids. 6. Chronic pain - cymbalta 7. VITA 8. Candidal intertrigo - topical nystatin + diflucan (received 3 doses so far) DVT ppx lovenox DC planning: Await final C&S. This patient was seen by Nestor Wiley PA-C under the supervision of Dr. العلي <Lauro العلي - Last Filed: 03/03/19 14:44> Subjective: Patient has suprapubic catheter. Patient has bilateral lower extremity weakness and is on air bed. 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 Has intertriginous yeast infection - Physical Exam General: Alert, Oriented x3, Cooperative HEENT: Atraumatic, PERRLA, EOMI, Normocephalic Neck: Supple, No JVD, Negative Carotid Bruits Lungs: No rhonchi, No wheeze, No rales, Diminished Cardiovascular: Regular rate, Regular Rhythm, Normal S1, Normal S2, No murmurs Abdomen: Bowel Sounds Present, Soft, Non Tender, Obese Extremities: Capillary Refill Less than 3 Seconds, Edema Skin: Rash Present Musculoskeletal: No Tenderness to Palpation of Joints or Extremities, Arthritic Changes, Muscle Wasting Neurological: Cranial nerves II-XII grossly intact, - - Bilateral lower extremity weakness, 2/5 at major joints. Psych/Mental Status: Normal Affect, Appropriate Vital Signs Temp Pulse Resp BP Pulse Ox 98.7 F 85 18 126/72 H 97 03/03/19 07:50 03/03/19 11:19 03/03/19 07:50 03/03/19 11:19 03/03/19 07:50 Oxygen Flow Rate (L/min) 2 Oxygen Delivery Method Room Air Weight: 337 lb 1.388 oz Body Mass Index (BMI) 52.7 Intake and Output for Last 24 Hours 03/01/19 03/02/19 03/03/19 23:59 23:59 23:59 Intake Total 2641 / 2641 1959 / 1959 1240 / 1240 Output Total 1825 / 1825 3290 / 3290 2075 / 2075 Balance 816 / 816 -1331 / -1331 -835 / -835 Microbiology Past 72 Hours 02/28/19 22:40 Urine Culture - Preliminary Urine Catheter - Henry Presumptive E. coli GNR non stock puller 02/28/19 22:15 Blood Culture - Preliminary Blood Culture (Wb) - Left Hand No growth in 48 hours. 02/28/19 22:10 Blood Culture - Preliminary Blood Culture (Wb) - Anticubital Left No growth in 48 hours. POC Glucose 03/03/19 03/02/19 03/02/19 06:35 22:49 15:54 POC Glucose 108 123 H 122 H Assessment/Plan This patient was seen in conjunction with Nestor ROCHE. I have independently interviewed and examined the patient and reviewed pertinent history, examination findings, laboratory and plan of management. I have reviewed the note and agree with the documented findings with the few additional points. In brief, patient is admitted for sepsis secondary to acute on recurrent UTI. Current urine culture is growing E. coli and gram-negative odin, lactose stock puller. Patient had sacral pressure ulcer, grade 1. Currently on air bed. Patient has urologist to change his suprapubic catheter. Infectious disease consult to assist discharge antibiotic. Patient does not w ant to go to SNF but home. I have discussed my assessment with Nestor ROCHE and orders have been reviewed. Code Visit Inpatient E&M: 60440 Subs Hosp L2
[2019-03-03 15:57] VITALS: BP 132/68; PULSE 91; RESP 18; TEMP 36.9; O2SAT 97
[2019-03-03] MEDS: Gabapentin 600 MG Tablet PO (18:13)
[2019-03-03 20:04] VITALS: BP 156/65; PULSE 91; RESP 16; TEMP 36.6; O2SAT 95
[2019-03-03] MEDS: levETIRAcetam 500 MG Tablet PO (22:57)
[2019-03-03] MEDS: Pravastatin 20 MG Tablet PO (22:58)
[2019-03-04 02:11] VITALS: BP 143/80; PULSE 90; RESP 18; TEMP 37; O2SAT 98
[2019-03-04] MEDS: Acetaminophen 325 MG Tablet 650 MG PO (03:49)
[2019-03-04] MEDS: DiphenhydrAMINE 25 MG Capsule PO (03:49)
[2019-03-04 06:30] VITALS: O2SAT 95
[2019-03-04] MEDS: 0.9% NaCl Peripheral Flush Adult/Peds IV ×3 (07:00→10:51)
[2019-03-04] MEDS: Venlafaxine HCl 75 MG Tablet PO ×2 (07:00→12:46)
[2019-03-04] MEDS: Multivitamins,Ther W-Minerals Tablet 1 TABLET PO ×2 (08:01→12:45)
[2019-03-04] MEDS: Gabapentin 600 MG Tablet PO (08:04)
[2019-03-04] MEDS: Vitamin E 400 UNITS Capsule PO (08:05)
[2019-03-04 08:11] VITALS: BP 139/80; PULSE 77; RESP 18; TEMP 36.5; O2SAT 97
--- NOTE | 2019-03-04 10:42 | CON.PCM_ITS ---
Problem List (1) UTI (urinary tract infection) Status: Acute Qualifiers: Urinary tract infection type: catheter-associated UTI Indwelling urinary catheter type: cystostomy catheter Encounter type: initial encounter Qualified Code(s): T83.510A - Infection and inflammatory reaction due to cystostomy catheter, initial encounter; N39.0 - Urinary tract infection, site not specified Reason for Consult: uti Consulted by: Dr. العلي History of Present Illness: The patient is a 73 year old F with suprapubic cath, admitted with one day h/o weakness, not feeling well. No fever, is on macrobid daily for suppression. No abd pain. Urine has been cloudy with sediment for past few weeks. Admitted, started on ceftriaxone, feeling back to normal. Cath changed planned. Also reported abd rash, irritation, redness, pain; now much improved with fluc and nystatin powder. Full ROS performed and neg except as noted above. - Medical History Past Medical History (Chronic Problems): Chronic Problems Debility (Chronic) Depression (Chronic) VITA (obstructive sleep apnea) (Chronic) Allergies/Adverse Reactions: Allergies adhesive tape Allergy (Verified 02/28/19 22:06) blisters Influenza Virus Vaccines Allergy (Verified 02/28/19 22:06) shortness of breath/severe wheezing iron Allergy (Verified 02/28/19 22:06) from IV form chest pressure and heart palpitations Sulfa (Sulfonamide Antibiotics) Allergy (Verified 02/28/19 22:06) Shortness of breath bactrim does not work for her-per pcp paperwork meloxicam [From Mobic] Adverse Reaction (Verified 02/28/19 22:06) gi upset seasonal allergies Allergy (Uncoded 02/28/19 22:06) Other Home Medications: Ambulatory Orders Medication Instructions Recorded RX: DiphenhydrAMINE [Benadryl] 25 mg PO BID PRN PRN 09/30/13 RX: Furosemide [Lasix] 20 mg PO TID 09/30/13 RX: Pantoprazole Sodium [Protonix] 40 mg PO DAILY 09/30/13 RX: Albuterol Inhaler [Ventolin 2 puff INHALATION Q4H PRN PRN 10/30/18 Hfa] RX: Baclofen 10 mg PO TID 10/30/18 RX: Cholecalciferol (VIT D3) 1,000 unit PO DAILY 10/30/18 [Vitamin D3] RX: Cranberry Conc/Ascorbic Acid 1 each PO BID 10/30/18 [Cranberry Concentrate Softgel] RX: Diphenoxylate/Atrop [Lomotil] 1 tablet PO 4X/DAY PRN PRN 10/30/18 RX: Duloxetine Hcl [Cymbalta] 30 mg PO DAILY 10/30/18 RX: Fluticasone 0.05% [Flonase 2 spray NASAL DAILY 10/30/18 Nasal [place]] RX: Gabapentin [Neurontin] 600 mg PO BID 10/30/18 RX: Guaifenesin [Mucinex] 1,200 mg PO BID PRN 10/30/18 RX: Hydrocodone Bitart/Apap 5-325 1 tablet PO Q6H PRN PRN 10/30/18 [[place] 5/325] RX: Lisinopril [Zestril] 10 mg PO DAILY 10/30/18 RX: Metformin HCl [Glucophage] 500 mg PO BID 10/30/18 RX: Metoprolol(XL)Succ [Toprol Xl 25 mg PO DAILY 10/30/18 (Beta [place])] RX: Multivitamins,Ther W-Minerals 1 tablet PO 4X/DAY 10/30/18 [Multivitamin With Minerals] RX: Mupirocin [Bactroban] 1 applicatio TOPICAL BID 10/30/18 RX: Nystatin Powder [Mycostatin 1 applicatio TOPICAL BID PRN PRN 10/30/18 Powder] RX: Oxybutynin Chloride [Ditropan 15 mg PO DAILY 10/30/18 Xl] RX: Potassium (Otc) [Potassium OTC] 99 mg PO DAILY 10/30/18 RX: Ranitidine [Zantac] 150 mg PO BID 10/30/18 RX: Triamcinolone 0.1% Dental Pst 1 applicatio TOPICAL 4X/DAY 10/30/18 [Kenalog Dental Paste] RX: Vitamin E 400 units PO BID 10/30/18 RX: levETIRAcetam tablet [Keppra 500 mg PO QHS 10/30/18 tablet] RX: Acetaminophen [Tylenol] 650 mg PO Q6H PRN PRN 12/17/18 RX: Cyanocobalamin (Vitamin B-12) 1,000 mcg PO DAILY 12/17/18 [B-12] RX: Guaifenesin 400 mg PO Q4H PRN PRN 12/17/18 RX: Pravastatin [Pravachol] 20 mg PO QHS 12/17/18 RX: Venlafaxine HCl [Effexor] 150 mg PO BID 12/17/18 Cephalexin [Keflex] 500 mg PO Q12 #12 capsule 12/19/18 Vital Signs Temp Pulse Resp BP Pulse Ox 97.7 F L 77 18 139/80 H 97 03/04/19 08:11 03/04/19 08:11 03/04/19 08:11 03/04/19 08:11 03/04/19 08:11 Oxygen Flow Rate (L/min) 2 Oxygen Delivery Method Room Air Weight: 152.9 kg Body Mass Index (BMI) 52.7 Microbiology Past 72 Hours 02/28/19 22:40 Urine Culture - Preliminary Urine Catheter - Henry Presumptive E. 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 02/28/19 22:10 Blood Culture - Preliminary Blood Culture (Wb) - Anticubital Left No growth in 48 hours. - Other Studies Radiology: [] reviewed Other Studies: [] Route of nutrition/ use of supplements: [] Nutritional Intake: [] IV Site: [] Henry Catheter: [] - Physical Exam General: Alert, Oriented x3, Cooperative HEENT: Atraumatic, PERRLA Neck: Supple, No Nodes Lungs: Clear to auscultation, Normal air movement Cardiovascular: Regular rate, Regular Rhythm Abdomen: Soft, Non Tender, Non-Distended Extremities: Edema Skin: Rash Present - lower abd pannus, fading erythema IV Site: Peripheral, without redness Musculoskeletal: No Tenderness to Palpation of Joints or Extremities - Assessment/Plan Antibiotics: [] Assessment/Plan: [] Active and Suspected Problems Cellulitis (Acute) Cellulitis of abdominal wall (Acute) Ecoli complicated uti - much improved. Susc pattern not consistent with ESBL. Spoke with micro lab, test to be repeated. MICHAELLE resolved. Cath to be changed. Other orgs seen in urine but likely colonization given her improvement with narrow abx coverage. Ok for d/c home on amox for 3 more days. Will follow, thank you, d/w Dr. العلي.
[2019-03-04] MEDS: Famotidine 20 MG Tablet PO (10:45)
[2019-03-04] MEDS: Nystatin Powder 15gm Bottle 1 APPLIC TOPICAL (10:45)
[2019-03-04] MEDS: Enoxaparin 40 MG/0.4 ML Syringe SC (10:45)
[2019-03-04] MEDS: DULoxetine Hcl 30 MG Capsule PO (10:46)
[2019-03-04] MEDS: Cyanocobalamin 500 MCG Tablet 1000 MCG PO (10:46)
[2019-03-04] MEDS: Tolterodine Tartrate 4 MG CAP.SA PO (10:46)
[2019-03-04] MEDS: Fluconazole 100 MG Tablet 200 MG PO (10:47)
[2019-03-04 10:48] VITALS: BP 139/80; PULSE 77
[2019-03-04] MEDS: Pantoprazole Sodium 40 MG Tablet PO (10:48)
[2019-03-04] MEDS: Metoprolol(XL)Succ 25 MG Tablet PO (10:48)
--- NOTE | 2019-03-04 11:30 | CASEMGMT ---
TONI MARTINES in to discuss discharge plans with patient. Patient wishes to discharge home with [facility]. TONI MARTINES updated [facility] regarding patient's discharge. Patient denied further needs.
--- NOTE | 2019-03-04 11:37 | DCINST_ITS ---
- Discharge Diagnoses Current Active Problems: Current Active and Chronic Problems Cellulitis (Acute) Cellulitis of abdominal wall (Acute) You will use the following diet at home:: Calorie/Carbohydrate Controlled (specify 1200, 1400, etc) - 1800 becky / day, Cardiac Your food should be the consistency of: Regular Your liquids should be the consistency of: Regular/Thin Discharge Activity: Return to Normal Activity Additional Instructions: Continue current daily dressing changes for your wounds. Allergies/Adverse Reactions: Allergies adhesive tape Allergy (Verified 02/28/19 22:06) blisters Influenza Virus Vaccines Allergy (Verified 02/28/19 22:06) shortness of breath/severe wheezing iron Allergy (Verified 02/28/19 22:06) from IV form chest pressure and heart palpitations Sulfa (Sulfonamide Antibiotics) Allergy (Verified 02/28/19 22:06) Shortness of breath bactrim does not work for her-per pcp paperwork meloxicam [From Mobic] Adverse Reaction (Verified 02/28/19 22:06) gi upset seasonal allergies Allergy (Uncoded 02/28/19 22:06) Other Medications to take at Discharge DiphenhydrAMINE [Benadryl] 25 mg PO BID PRN PRN 09/30/13 Furosemide [Lasix] 20 mg PO TID 09/30/13 Pantoprazole Sodium [Protonix] 40 mg PO DAILY 09/30/13 Albuterol Inhaler [Ventolin Hfa] 2 puff INHALATION Q4H PRN PRN 10/30/18 Baclofen 10 mg PO TID 10/30/18 Cholecalciferol (VIT D3) [Vitamin D3] 1,000 unit PO DAILY 10/30/18 Cranberry Conc/Ascorbic Acid [Cranberry Concentrate Softgel] 1 each PO BID 10/30/18 Diphenoxylate/Atrop [Lomotil] 1 tablet PO 4X/DAY PRN PRN 10/30/18 Duloxetine Hcl [Cymbalta] 30 mg PO DAILY 10/30/18 Fluticasone 0.05% [Flonase Nasal [place]] 2 spray NASAL DAILY 10/30/18 Gabapentin [Neurontin] 600 mg PO BID 10/30/18 Guaifenesin [Mucinex] 1,200 mg PO BID PRN 10/30/18 Hydrocodone Bitart/Apap 5-325 [[place] 5/325] 1 tablet PO Q6H PRN PRN 10/30/18 Lisinopril [Zestril] 10 mg PO DAILY 10/30/18 Metformin HCl [Glucophage] 500 mg PO BID 10/30/18 Metoprolol(XL)Succ [Toprol Xl (Beta [place])] 25 mg PO DAILY 10/30/18 Multivitamins,Ther W-Minerals [Multivitamin With Minerals] 1 tablet PO 4X/DAY 10/30/18 Mupirocin [Bactroban] 1 applicatio TOPICAL BID 10/30/18 Nystatin Powder [Mycostatin Powder] 1 applicatio TOPICAL BID PRN PRN 10/30/18 Oxybutynin Chloride [Ditropan Xl] 15 mg PO DAILY 10/30/18 Potassium (Otc) [Potassium OTC] 99 mg PO DAILY 10/30/18 Ranitidine [Zantac] 150 mg PO BID 10/30/18 Triamcinolone 0.1% Dental Pst [Kenalog Dental Paste] 1 applicatio TOPICAL 4X/DAY 10/30/18 Vitamin E 400 units PO BID 10/30/18 levETIRAcetam tablet [Keppra tablet] 500 mg PO QHS 10/30/18 Acetaminophen [Tylenol] 650 mg PO Q6H PRN PRN 12/17/18 Cyanocobalamin (Vitamin B-12) [B-12] 1,000 mcg PO DAILY 12/17/18 Guaifenesin 400 mg PO Q4H PRN PRN 12/17/18 Pravastatin [Pravachol] 20 mg PO QHS 12/17/18 Venlafaxine HCl [Effexor] 150 mg PO BID 12/17/18 Amoxicillin [Amoxil] 500 mg PO Q12H #6 capsule 03/04/19 The following prescriptions were given: Amoxicillin [Amoxil] 500 mg PO Q12H #6 capsule Primary Care Physician: Noy Chakraborty MD [Primary Care Provider] - Please follow up with your Primary Care Physician in: 1 week Test Results: Test results from this visit will be discussed in further detail at your follow- up appointment, if applicable. Proposed Discharge Date: 03/04/19
[2019-03-04 15:04] VITALS: BP 130/70; PULSE 70; RESP 18; TEMP 36.9; O2SAT 98
--- NOTE | 2019-03-04 15:13 | PCM.DC.SUM ---
<Nestor Wiley - Last Filed: 03/04/19 15:13> Discharge Date and Diagnosis - Problem List Patient Problems: Active and Suspected Problems Cellulitis (Acute) Cellulitis of abdominal wall (Acute) Date of Admission: 02/28/19 Date of Discharge: 03/04/19 - Primary Discharge Diagnosis Active and Suspected Problems Acute sepsisAcute recurrent E coli UTI 2/2 suprapubic catheter Cellulitis ruled out. Panniculitis 2/2 intertrigo Sacral pressure ulcer CKDIII Hyponatremia 2/2 acute infection - Secondary Discharge Diagnosis Chronic Problems Debility (Chronic) Depression (Chronic) VITA (obstructive sleep apnea) (Chronic) Hospital Course and Treatment Imaging Results: RAD/Chest 1 View (Portable) IMPRESSION: Degenerative changes, as described above. No demonstrated acute cardiopulmonary process. Consultations Mark BROWER 03/01/19 Consult: Onc/Wound/pension agent Routine Comment: Reason for Consult:: Multiple wounds to coccyx and inguinal folds Operations: None Procedures: None Summary of Care Provided: Hospital Course: The patient is a 73 year old F with pmhx of multiple UTIs with drug resistant bacteria, morbid obesity, DMt2, suprapubic catheter, CKDIII, chronic diastolic CHF, VITA, chronic pain, who presented to the ER with c/o fever and pain in her abdomen. She was found to have a fever, leukocytosis, tachycardia and was felt to have sepsis 2/2 UTI. There was concern at first for cellulitis however on further inspection of her pannus and pressure ulcers there did not appear to be acute cellulitis, there was intertrigo which was treated with diflucan and nystatin. She was given IV rocephin for UTI. She previously had UTIs with resistant bacteria. There were multiple Gram negative organisms, at least E coli present, but others not completely identified at this point. Infectious disease was consulted. ID advised treatment of the E coli with amoxicillin for 3 more days. She was prescribed Amox 875 BID x 6 doses. She received 4 days of rocephin here. She had resolution of her fever and leukocytosis, and abdominal pain. She was discharged home in stable condition with [facility] to help with PTOT, and her wound care. She was advised to follow up with her PCP in 1 week. We were going to have urology change her suprapubic here, but she desired to go home and see her urologist to have it changed. This patient was seen by Nestor Wiley PA-C under the supervision of Dr. العلي. [] Patient Problems: Active and Suspected Problems Cellulitis (Acute) Cellulitis of abdominal wall (Acute) - Physical Exam General: Alert, Oriented x3, Cooperative HEENT: Atraumatic, PERRLA, EOMI, Normocephalic Neck: Supple, No JVD, Negative Carotid Bruits Lungs: Clear to auscultation, Normal air movement Cardiovascular: Regular rate, No murmurs Abdomen: Bowel Sounds Present, Soft, Non Tender, Obese Extremities: No edema, Capillary Refill Less than 3 Seconds Skin: No rashes, No breakdown Musculoskeletal: No Tenderness to Palpation of Joints or Extremities Neurological: Cranial nerves II-XII grossly intact Psych/Mental Status: Normal Affect, Appropriate, Alert and oriented to time, place, person, mood and affect Vital Signs Temp Pulse Resp BP Pulse Ox 98.5 F 70 18 130/70 H 98 03/04/19 15:04 03/04/19 15:04 03/04/19 15:04 03/04/19 15:04 03/04/19 15:04 Oxygen Flow Rate (L/min) 2 Oxygen Delivery Method Room Air Weight: 337 lb 1.388 oz Body Mass Index (BMI) 52.7 Intake and Output for Last 24 Hours 03/02/19 03/03/19 03/04/19 23:59 23:59 23:59 Intake Total 1959 / 1959 2579.2 / 2579.2 1070 / 1070 Output Total 3290 / 3290 3575 / 3575 1400 / 1400 Balance -1331 / -1331 -995.8 / -995.8 -330 / -330 Microbiology Past 72 Hours 02/28/19 22:40 Urine Culture - Preliminary Urine Catheter - Henry Presumptive E. coli GNR non gun numberer 02/28/19 22:15 Blood Culture - Preliminary Blood Culture (Wb) - Left Hand No growth in 48 hours. 02/28/19 22:10 Blood Culture - Preliminary Blood Culture (Wb) - Anticubital Left No growth in 48 hours. Discharge Diet: Low fat/ Low Cholesterol, 1800 Calorie Control Diet, 2000 mg Sodium Diet Discharge Activity: Return to Normal Activity Home Medications: Medications to take at Discharge DiphenhydrAMINE [Benadryl] 25 mg PO BID PRN PRN 09/30/13 Furosemide [Lasix] 20 mg PO TID 09/30/13 Pantoprazole Sodium [Protonix] 40 mg PO DAILY 09/30/13 Albuterol Inhaler [Ventolin Hfa] 2 puff INHALATION Q4H PRN PRN 10/30/18 Baclofen 10 mg PO TID 10/30/18 Cholecalciferol (VIT D3) [Vitamin D3] 1,000 unit PO DAILY 10/30/18 Cranberry Conc/Ascorbic Acid [Cranberry Concentrate Softgel] 1 each PO BID 10/30/18 Diphenoxylate/Atrop [Lomotil] 1 tablet PO 4X/DAY PRN PRN 10/30/18 Duloxetine Hcl [Cymbalta] 30 mg PO DAILY 10/30/18 Fluticasone 0.05% [Flonase Nasal [place]] 2 spray NASAL DAILY 10/30/18 Gabapentin [Neurontin] 600 mg PO BID 10/30/18 Guaifenesin [Mucinex] 1,200 mg PO BID PRN 10/30/18 Hydrocodone Bitart/Apap 5-325 [[place] 5/325] 1 tablet PO Q6H PRN PRN 10/30/18 Lisinopril [Zestril] 10 mg PO DAILY 10/30/18 Metformin HCl [Glucophage] 500 mg PO BID 10/30/18 Metoprolol(XL)Succ [Toprol Xl (Beta [place])] 25 mg PO DAILY 10/30/18 Multivitamins,Ther W-Minerals [Multivitamin With Minerals] 1 tablet PO 4X/DAY 10/30/18 Mupirocin [Bactroban] 1 applicatio TOPICAL BID 10/30/18 Nystatin Powder [Mycostatin Powder] 1 applicatio TOPICAL BID PRN PRN 10/30/18 Oxybutynin Chloride [Ditropan Xl] 15 mg PO DAILY 10/30/18 Potassium (Otc) [Potassium OTC] 99 mg PO DAILY 10/30/18 Ranitidine [Zantac] 150 mg PO BID 10/30/18 Triamcinolone 0.1% Dental Pst [Kenalog Dental Paste] 1 applicatio TOPICAL 4X/DAY 10/30/18 Vitamin E 400 units PO BID 12/18/18 levETIRAcetam tablet [Keppra tablet] 500 mg PO QHS 10/30/18 Acetaminophen [Tylenol] 650 mg PO Q6H PRN PRN 12/17/18 Cyanocobalamin (Vitamin B-12) [B-12] 1,000 mcg PO DAILY 12/17/18 Guaifenesin 400 mg PO Q4H PRN PRN 12/17/18 Pravastatin [Pravachol] 20 mg PO QHS 12/17/18 Venlafaxine HCl [Effexor] 150 mg PO BID 12/17/18 Amoxicillin [Amoxil] 500 mg PO Q12H #6 capsule 03/04/19 Following Prescrptions Were Given to Patient: Amoxicillin [Amoxil] 500 mg PO Q12H #6 capsule Primary Care Physician: Noy Chakraborty MD [Primary Care Provider] - Please follow up with your Primary Care Physician in: 1 week Disposition: Home Minutes spent on discharge:: 35 Patient Condition:: Stable Medical Necessity - Tobacco Use Smoking Status: Former smoker Meaningful Use Info Meaningful Use Diagnoses (Choose all that apply): None applicable <Lauro العلي - Last Filed: 03/04/19 15:58> Discharge Date and Diagnosis - Primary Discharge Diagnosis Active and Suspected Problems Cellulitis (Acute) Cellulitis of abdominal wall (Acute) - Secondary Discharge Diagnosis Chronic Problems Debility (Chronic) Depression (Chronic) VITA (obstructive sleep apnea) (Chronic) Hospital Course and Treatment Consultations 03/01/19 Consult: Onc/Wound/pension agent Routine Comment: Reason for Consult:: Multiple wounds to coccyx and inguinal folds 03/01/19 02:54 Consult: Onc/Wound/pension agent Routine Comment: Patient with multiple wounds. Summary of Care Provided: [] This patient was seen in conjunction with Nestor ROCHE. I have independently interviewed and examined the patient and reviewed pertinent history, examination findings, laboratory and plan of management. I have reviewed the note and agree with the documented findings with the few additional points. In brief, patient is admitted for sepsis secondary to acute on recurrent UTI. Urine cultures growing E. coli ESBL negative. Other gram-negative odin non-gun numberer probably colonization. 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 Advised to discharge on amoxicillin 500 mg for 3 more days. Patient had sacral pressure ulcer, grade 1. Patient also has a yeast infection of groin and abdominal folds of his skin. Currently on air bed. Suprapubic catheter was changed. Patient is being discharged home with home health care. Discharge medication reconciliation done. Discharge follow-up instructions completed. Discharge process discussed with the patient and all questions were answered to patient's satisfaction.. Total time spent, exact 35 minutes on discharge meds reconciliation, examination, review of imaging and blood test and discussion with the patient on follow-up instructions. I have discussed my assessment with Nestor ROCHE and orders have been reviewed. Subjective: Patient has suprapubic catheter which has been there for 3 weeks and needs to be changed. Microbiology lab called. Urine culture reported as E. coli but it is unclear whether it is ESBL positive or not. They will run the test again. Discussed with ID - Physical Exam General: Alert, Oriented x3, Cooperative HEENT: Atraumatic, PERRLA, EOMI, Normocephalic Neck: Supple, No JVD, Negative Carotid Bruits Lungs: Normal air movement, No rhonchi, No wheeze, No rales, Diminished Cardiovascular: Regular rate, Regular Rhythm, Normal S1, Normal S2, No murmurs Abdomen: Bowel Sounds Present, Soft, Non Tender, Obese Extremities: Capillary Refill Less than 3 Seconds, Edema Skin: Ulcer/ Wound - Decubitus ulcer , Stage I sacral region. Left lower abdomen Yeast infection with the skin open areas Left posterior thigh, small open area minimal serosanguineous., Skin Tear, Rash Present Musculoskeletal: No Tenderness to Palpation of Joints or Extremities, Arthritic Changes, Muscle Wasting, - - Functional quadriplegia. Paraplegia of lower extremity. Neurological: Cranial nerves II-XII grossly intact, - - DTR 1+. Psych/Mental Status: Flat Affect Vital Signs Temp Pulse Resp BP Pulse Ox 98.5 F 70 18 130/70 H 98 03/04/19 15:04 03/04/19 15:04 03/04/19 15:04 03/04/19 15:04 03/04/19 15:04 Oxygen Flow Rate (L/min) 2 Oxygen Delivery Method Room Air Weight: 337 lb 1.388 oz Body Mass Index (BMI) 52.7 Intake and Output for Last 24 Hours 03/02/19 03/03/19 03/04/19 23:59 23:59 23:59 Intake Total 1958 2579.2 / 2579.2 1070 / 1070 Output Total 3290 / 3290 3575 / 3575 1400 / 1400 Balance -1331 / -1331 -995.8 / -995.8 -330 / -330 Microbiology Past 72 Hours 02/28/19 22:40 Urine Culture - Preliminary Urine Catheter - Henry Presumptive E. coli GNR non gun numberer 02/28/19 22:15 Blood Culture - Preliminary Blood Culture (Wb) - Left Hand No growth in 48 hours. 02/28/19 22:10 Blood Culture - Preliminary Blood Culture (Wb) - Anticubital Left No growth in 48 hours. Code Visit Inpatient E&M: 31296 Disch Hosp
--- NOTE | 2019-03-04 15:23 | DS.PCM_ITS ---
<Nestor Wiley - Last Filed: 03/04/19 15:13> Discharge Date and Diagnosis - Problem List Patient Problems: Active and Suspected Problems Cellulitis (Acute) Cellulitis of abdominal wall (Acute) Date of Admission: 02/28/19 Date of Discharge: 03/04/19 - Primary Discharge Diagnosis Active and Suspected Problems Acute sepsisAcute recurrent E coli UTI 2/2 suprapubic catheter Cellulitis ruled out. Panniculitis 2/2 intertrigo Sacral pressure ulcer CKDIII Hyponatremia 2/2 acute infection - Secondary Discharge Diagnosis Chronic Problems Debility (Chronic) Depression (Chronic) VITA (obstructive sleep apnea) (Chronic) Hospital Course and Treatment Imaging Results: RAD/Chest 1 View (Portable) IMPRESSION: Degenerative changes, as described above. No demonstrated acute cardiopulmonary process. Consultations Mark BROWER 03/01/19 Consult: Onc/Wound/manager data warehousing Routine Comment: Reason for Consult:: Multiple wounds to coccyx and inguinal folds Operations: None Procedures: None Summary of Care Provided: Hospital Course: The patient is a 73 year old F with pmhx of multiple UTIs with drug resistant bacteria, morbid obesity, DMt2, suprapubic catheter, CKDIII, chronic diastolic CHF, VITA, chronic pain, who presented to the ER with c/o fever and pain in her abdomen. She was found to have a fever, leukocytosis, tachycardia and was felt to have sepsis 2/2 UTI. There was concern at first for cellulitis however on further inspection of her pannus and pressure ulcers there did not appear to be acute cellulitis, there was intertrigo which was treated with diflucan and nystatin. She was given IV rocephin for UTI. She previously had UTIs with resistant bacteria. There were multiple Gram negative organisms, at least E coli present, but others not completely identified at this point. Infectious disease was consulted. ID advised treatment of the E coli with amoxicillin for 3 more days. She was prescribed Amox 875 BID x 6 doses. She received 4 days of rocephin here. She had resolution of her fever and leukocytosis, and abdominal pain. She was discharged home in stable condition with [facility] to help with PTOT, and her wound care. She was advised to follow up with her PCP in 1 week. We were going to have urology change her suprapubic here, but she desired to go home and see her urologist to have it changed. This patient was seen by Nestor Wiley PA-C under the supervision of Dr. العلي. [] Patient Problems: Active and Suspected Problems Cellulitis (Acute) Cellulitis of abdominal wall (Acute) - Physical Exam General: Alert, Oriented x3, Cooperative HEENT: Atraumatic, PERRLA, EOMI, Normocephalic Neck: Supple, No JVD, Negative Carotid Bruits Lungs: Clear to auscultation, Normal air movement Cardiovascular: Regular rate, No murmurs Abdomen: Bowel Sounds Present, Soft, Non Tender, Obese Extremities: No edema, Capillary Refill Less than 3 Seconds Skin: No rashes, No breakdown Musculoskeletal: No Tenderness to Palpation of Joints or Extremities Neurological: Cranial nerves II-XII grossly intact Psych/Mental Status: Normal Affect, Appropriate, Alert and oriented to time, place, person, mood and affect Vital Signs Temp Pulse Resp BP Pulse Ox 98.5 F 70 18 130/70 H 98 03/04/19 15:04 03/04/19 15:04 03/04/19 15:04 03/04/19 15:04 03/04/19 15:04 Oxygen Flow Rate (L/min) 2 Oxygen Delivery Method Room Air Weight: 337 lb 1.388 oz Body Mass Index (BMI) 52.7 Intake and Output for Last 24 Hours 03/02/19 03/03/19 03/04/19 23:59 23:59 23:59 Intake Total 1959 / 1959 2579.2 / 2579.2 1070 / 1070 Output Total 3290 / 3290 3575 / 3575 1400 / 1400 Balance -1331 / -1331 -995.8 / -995.8 -330 / -330 Microbiology Past 72 Hours 02/28/19 22:40 Urine Culture - Preliminary Urine Catheter - Henry Presumptive E. coli GNR non mailroom clerk 02/28/19 22:15 Blood Culture - Preliminary Blood Culture (Wb) - Left Hand No growth in 48 hours. 02/28/19 22:10 Blood Culture - Preliminary Blood Culture (Wb) - Anticubital Left No growth in 48 hours. Discharge Diet: Low fat/ Low Cholesterol, 1800 Calorie Control Diet, 2000 mg Sodium Diet Discharge Activity: Return to Normal Activity Home Medications: Medications to take at Discharge DiphenhydrAMINE [Benadryl] 25 mg PO BID PRN PRN 09/30/13 Furosemide [Lasix] 20 mg PO TID 09/30/13 Pantoprazole Sodium [Protonix] 40 mg PO DAILY 09/30/13 Albuterol Inhaler [Ventolin Hfa] 2 puff INHALATION Q4H PRN PRN 10/30/18 Baclofen 10 mg PO TID 10/30/18 Cholecalciferol (VIT D3) [Vitamin D3] 1,000 unit PO DAILY 10/30/18 Cranberry Conc/Ascorbic Acid [Cranberry Concentrate Softgel] 1 each PO BID 10/30/18 Diphenoxylate/Atrop [Lomotil] 1 tablet PO 4X/DAY PRN PRN 10/30/18 Duloxetine Hcl [Cymbalta] 30 mg PO DAILY 10/30/18 Fluticasone 0.05% [Flonase Nasal [place]] 2 spray NASAL DAILY 10/30/18 Gabapentin [Neurontin] 600 mg PO BID 10/30/18 Guaifenesin [Mucinex] 1,200 mg PO BID PRN 10/30/18 Hydrocodone Bitart/Apap 5-325 [[place]bins 5/325] 1 tablet PO Q6H PRN PRN 10/30/18 Lisinopril [Zestril] 10 mg PO DAILY 10/30/18 Metformin HCl [Glucophage] 500 mg PO BID 10/30/18 Metoprolol(XL)Succ [Toprol Xl (Beta [place])] 25 mg PO DAILY 10/30/18 Multivitamins,Ther W-Minerals [Multivitamin With Minerals] 1 tablet PO 4X/DAY 10/30/18 Mupirocin [Bactroban] 1 applicatio TOPICAL BID 10/30/18 Nystatin Powder [Mycostatin Powder] 1 applicatio TOPICAL BID PRN PRN 10/30/18 Oxybutynin Chloride [Ditropan Xl] 15 mg PO DAILY 10/30/18 Potassium (Otc) [Potassium OTC] 99 mg PO DAILY 10/30/18 Ranitidine [Zantac] 150 mg PO BID 10/30/18 Triamcinolone 0.1% Dental Pst [Kenalog Dental Paste] 1 applicatio TOPICAL 4X/DAY 10/30/18 Vitamin E 400 units PO BID 12/18/18 levETIRAcetam tablet [Keppra tablet] 500 mg PO QHS 10/30/18 Acetaminophen [Tylenol] 650 mg PO Q6H PRN PRN 12/17/18 Cyanocobalamin (Vitamin B-12) [B-12] 1,000 mcg PO DAILY 12/17/18 Guaifenesin 400 mg PO Q4H PRN PRN 12/17/18 Pravastatin [Pravachol] 20 mg PO QHS 12/17/18 Venlafaxine HCl [Effexor] 150 mg PO BID 12/17/18 Amoxicillin [Amoxil] 500 mg PO Q12H #6 capsule 03/04/19 Following Prescrptions Were Given to Patient: Amoxicillin [Amoxil] 500 mg PO Q12H #6 capsule Primary Care Physician: Noy Chakraborty MD [Primary Care Provider] - Please follow up with your Primary Care Physician in: 1 week Disposition: Home Minutes spent on discharge:: 35 Patient Condition:: Stable Medical Necessity - Tobacco Use Smoking Status: Former smoker Meaningful Use Info Meaningful Use Diagnoses (Choose all that apply): None applicable <Lauro العلي - Last Filed: 03/04/19 15:58> Discharge Date and Diagnosis - Primary Discharge Diagnosis Active and Suspected Problems Cellulitis (Acute) Cellulitis of abdominal wall (Acute) - Secondary Discharge Diagnosis Chronic Problems Debility (Chronic) Depression (Chronic) VITA (obstructive sleep apnea) (Chronic) Hospital Course and Treatment Consultations 03/01/19 Consult: Onc/Wound/manager data warehousing Routine Comment: Reason for Consult:: Multiple wounds to coccyx and inguinal folds 03/01/19 02:54 Consult: Onc/Wound/manager data warehousing Routine Comment: Patient with multiple wounds. Summary of Care Provided: [] This patient was seen in conjunction with Nestor ROCHE. I have independently interviewed and examined the patient and reviewed pertinent history, examination findings, laboratory and plan of management. I have reviewed the note and agree with the documented findings with the few additional points. In brief, patient is admitted for sepsis secondary to acute on recurrent UTI. Urine cultures growing E. coli ESBL negative. Other gram-negative odin non- mailroom clerk probably colonization. Patient seen by ID retail client solutions consultant. Advised to discharge on amoxicillin 500 mg for 3 more days. Patient had sacral pressure ulcer, grade 1. Patient also has a yeast infection of groin and abdominal folds of his skin. Currently on air bed. Suprapubic catheter was changed. Patient is being discharged home with home health care. Discharge medication reconciliation done. Discharge follow-up instructions completed. Discharge process discussed with the patient and all questions were answered to patient's satisfaction.. Total time spent, exact 35 minutes on discharge meds reconciliation, examination, review of imaging and blood test and discussion with the patient on follow-up instructions. I have discussed my assessment with Nestor ROCHE and orders have been reviewed. Subjective: Patient has suprapubic catheter which has been there for 3 weeks and needs to be changed. Microbiology lab called. Urine culture reported as E. coli but it is unclear whether it is ESBL positive or not. They will run the test again. Discussed with ID - Physical Exam General: Alert, Oriented x3, Cooperative HEENT: Atraumatic, PERRLA, EOMI, Normocephalic Neck: Supple, No JVD, Negative Carotid Bruits Lungs: Normal air movement, No rhonchi, No wheeze, No rales, Diminished Cardiovascular: Regular rate, Regular Rhythm, Normal S1, Normal S2, No murmurs Abdomen: Bowel Sounds Present, Soft, Non Tender, Obese Extremities: Capillary Refill Less than 3 Seconds, Edema Skin: Ulcer/ Wound - Decubitus ulcer , Stage I sacral region. Left lower abdomen Yeast infection with the skin open areas Left posterior thigh, small open area minimal serosanguineous., Skin Tear, Rash Present Musculoskeletal: No Tenderness to Palpation of Joints or Extremities, Arthritic Changes, Muscle Wasting, - - Functional quadriplegia. Paraplegia of lower extremity. Neurological: Cranial nerves II-XII grossly intact, - - DTR 1+. Psych/Mental Status: Flat Affect Vital Signs Temp Pulse Resp BP Pulse Ox 98.5 F 70 18 130/70 H 98 03/04/19 15:04 03/04/19 15:04 03/04/19 15:04 03/04/19 15:04 03/04/19 15:04 Oxygen Flow Rate (L/min) 2 Oxygen Delivery Method Room Air Weight: 337 lb 1.388 oz Body Mass Index (BMI) 52.7 Intake and Output for Last 24 Hours 03/02/19 03/03/19 03/04/19 23:59 23:59 23:59 Intake Total 1958 2579.2 / 2579.2 1070 / 1070 Output Total 3290 / 3290 3575 / 3575 1400 / 1400 Balance -1331 / -1331 -995.8 / -995.8 -330 / -330 Microbiology Past 72 Hours 02/28/19 22:40 Urine Culture - Preliminary Urine Catheter - Henry Presumptive E. coli GNR non mailroom clerk 02/28/19 22:15 Blood Culture - Preliminary Blood Culture (Wb) - Left Hand No growth in 48 hours. 02/28/19 22:10 Blood Culture - Preliminary Blood Culture (Wb) - Anticubital Left No growth in 48 hours. Code Visit Inpatient E&M: 84136 Disch Hosp
--- NOTE | 2019-03-05 13:28 | CASEMGMT ---
TONI MARTINES DC PHONE CALL DC DATE: 03/04/19 DC Disposition: Home with Home Care LACE/STRATA: 14 Intro role of CM to patient via phone. Pt did not wish to converse as Home Health nurse was at the home. Call completed. Alec CASHN RN ACM
== END 2019-03-04 15:10 | disposition home health service (06) | DRG 698 ==
LOC: ED 03-01 00:21 → PCU 03-01 01:44 → MS3 03-01 14:46
PROVIDERS: Admitting Provider Hospitalist; Emergency Provider Emergency Medicine; Family Provider Internal Medicine; PCP Internal Medicine; Visit Provider Internal Medicine
DX: T83.518A Infection and inflammatory reaction due to other urinary catheter, initial encounter (principal); A41.9 Sepsis, unspecified organism; N39.0 Urinary tract infection, site not specified; E87.1 Hypo-osmolality and hyponatremia; N17.9 Acute kidney failure, unspecified; I13.0 Hypertensive heart and chronic kidney disease with heart failure and stage 1 through stage 4 chronic kidney disease, or unspecified chronic kidney disease; I50.32 Chronic diastolic (congestive) heart failure; Z68.43 Body mass index [BMI] 50.0-59.9, adult; E66.01 Morbid (severe) obesity due to excess calories; M79.3 Panniculitis, unspecified; L30.4 Erythema intertrigo; N18.3 Chronic kidney disease, stage 3 (moderate); R53.81 Other malaise; F32.9 Major depressive disorder, single episode, unspecified; G47.33 Obstructive sleep apnea (adult) (pediatric); L89.151 Pressure ulcer of sacral region, stage 1; B96.20 Unspecified Escherichia coli [E. coli] as the cause of diseases classified elsewhere; E11.22 Type 2 diabetes mellitus with diabetic chronic kidney disease; Z87.440 Personal history of urinary (tract) infections; Z79.84 Long term (current) use of oral hypoglycemic drugs; Z87.891 Personal history of nicotine dependence
CPT/HCPCS: 36415; 71045; 80048; 81001; 82962; 83605; 84484; 85025; 85027; 87040; 87077; 87086; 87088; 87186; 93005; 94762; 97802; 99285; J7030; J7040; A4216; J0696; J3490

== ENCOUNTER 2019-03-22 09:39 | Inpatient (IN) | payer MEDICARE, OTHER, SELFPAY ==
[2019-03-01 02:51] VITALS: BMI 52.7
[2019-03-22] VITALS (18 sets, daily range): BP systolic 103–229; BP diastolic 50–152; PULSE 99–194; RESP 13–24; TEMP 37.1–39.3; O2SAT 93–98; BMI 52.8
--- NOTE | 2019-03-22 09:52 | RAD_ITS ---
STUDY: X-RAY CHEST REASON FOR EXAM: Female, 73 years old. History of fever. TECHNIQUE: Single AP portable view of the chest. COMPARISON: Comparison is made with prior examination dated February 28, 2019. FINDINGS: EKG electrodes are seen. The lungs are clear and expanded. There is no demonstrated pleural abnormality. There is mild cardiac enlargement. Normal mediastinum and peace. Normal visualized pulmonary arteries. There is atherosclerotic tortuosity of the aortic arch and descending thoracic aorta. Normal visualized thoracic spine. There is degenerative osteoarthritis of the right shoulder. There is no demonstrated abnormality of the visualized soft tissue structures of the upper abdomen. RAD/Chest 1 View (Portable) IMPRESSION: Mild cardiomegaly. Electronically Signed: Joaquin Douglass, at 10:15 EDT , Service support ,
--- NOTE | 2019-03-22 09:52 | EKG12_ITS ---
Test Reason : COMPLAINT Blood Pressure : / mmHG Vent. Rate : 125 BPM Atrial Rate : 125 BPM P-R Int : 144 ms QRS Dur : 070 ms QT Int : 320 ms P-R-T Axes : 000 118 078 degrees QTc Int : 461 ms Sinus tachycardia with occasional Premature ventricular complexes and Fusion complexes Low voltage QRS Left posterior fascicular block Cannot rule out Anterior infarct (cited on or before 11-NOV-2018), age undetermined Abnormal ECG Confirmed by JR SETH ([id number]), staff editor BROOKS WIGGINS ([id number]) on 03/25/2019 2:00:38 PM Referred By: MANDEEP Confirmed By:JR SETH
--- NOTE | 2019-03-22 09:57 | ED.VISSUMM ---
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 Patient was hospitalized about 3 weeks ago for sepsis secondary to urinary tract infection. She was treated with broad-spectrum antibiotics and was improved. She followed up with her urologist and had her Henry catheter changed 2 weeks ago. She does have a chronic indwelling suprapubic catheter. She states that normally, she has about 3000 cc of urine out overnight. Last night, she only had about a liter. She states that increased in sent and in thickness. She is also had generalized malaise and chills. She denies any nausea. She denies any vomiting. She denies any rash. The patient does have chronic breakdown along her pannus around the catheter area. Physical Examination: Vital signs reviewed General: Well-nourished, well-developed Head: Normocephalic, atraumatic Eyes: Pupils equal and reactive, extraocular muscles intact Neck, supple, no lymphadenopathy Heart: Regular rate and rhythm Respiratory: No distress, clear bilaterally Abdomen: Soft, nontender, nondistended, no peritoneal signs, significant skin breakdown at the base of the panis. Suprapubic catheter is in place. Purulence is from the area. Back: Nontender Extremities: Nontender, no edema, no cords Skin: Normal color no rash Neuro: Alert and oriented, no focal or lateralizing deficits Test Results: [] Emergency Department Course and Treatment: Patient presents febrile, tachycardic, tachypneic. Sepsis work-up was pursued. Has partial skin changes, it does seem to be more chronic than acute. I do feel however that her catheter is likely infected given the significant skin changes. The patient refused to have a change to the emergency department. She states that at this hospital is always done wrong. Blood cultures were obtained. Patient does have leukocytosis and a lactic acidosis. She is given fluids and covered with broad-spectrum antibiotics. She is feeling improved. However, given her age and debility I do feel that she is going to require admission for following of her cultures. The patient was discussed with the hospitalist. Treatment Plan: [] Disposition: Admission Impression: 1. Urinary tract infection 2. Severe sepsis This note was generated with [employer] dictation software. It may contain incorrect words, spelling, and punctuation that were not noted in review of the chart prior to signing ED Disposition - Plan for ED Patient: Referrals: Noy Chakraborty MD [Primary Care Provider] -
[2019-03-22] MEDS: 0.9% Normal Saline 1,000 ML 150 ML IV (11:03)
[2019-03-22] MEDS: Acetaminophen 500 MG Tablet 1000 MG PO (11:05)
[2019-03-22 11:35] LABS: International Normalized Ratio 1.2; Prothrombin Time (Protime)PT. 15.4 SECONDS (11.7-14.9)
[2019-03-22 11:36] LABS: Partial Thromboplast Time 33.7 Seconds (24.1-36.2)
[2019-03-22 11:47] LABS: ALB/GLOB Ratio 0.5 RATIO (0.9-2.4); AST(SGOT) 11 U/L (15-37); Alanine Aminotransfer ALT/SGPT 13 U/L (13-56); Albumin, Serum 2.7 g/dL (3.2-5.0); Alkaline Phosphatase 75 U/L (45-117); Anion Gap 9 (5-15); BUN 27 mg/dL (7-18); BUN/Creat Ratio 13.7 RATIO (10-20); Calcium,Total 9.1 mg/dL (8.5-10.1); Chloride 96 mmol/L (98-107); Creatinine, Serum 1.97 mg/dL (0.55-1.02); EST Glomerular Filtration Rate 27 mL/min (>60); Est Glom Filt Rate - Afr Amer 32 mL/min (>60); Globulin 5.7 g/dL (2.2-4.2); Glucose 141 mg/dL (74-106); Potassium 4.6 mmol/L (3.5-5.1); Protein, Total 8.4 g/dL (6.4-8.2); Sodium Level 132 mmol/L (136-145)
[2019-03-22 11:54] LABS: Absolute Neutrophil Count 11.7 X10^3/uL (2.0-7.7); Basophil# 0.01 X10^3/uL; Basophil% 0.1 % (0-1); Eosinophil# 0.01 X10^3/uL; Eosinophils% 0.1 % (0-5); Hematocrit 35.7 % (37-47); Hemoglobin 11.2 g/dl (12.0-15.0); Lymphocyte % 7.1 % (19-41); Mean Corp Hgb Conc 31.4 g/gl (32-36); Mean Corpuscular Hgb 28.2 pg (27.0-32.0); Mean Corpuscular Volume 89.9 fL (81-99); Mean Platelet Vol. 9.5 fl (6.2-12.0); Monocyte# 1.28 X10^3/uL; Monocyte% 9.1 % (0-10); Neutrophil # 11.69 X10^3/uL (2.7-7.7); Neutrophil % 83.4 % (47-70); Platelet Count 289 K/mm3 (150-450); RBC Distribution Width CV 17.2 % (11.6-14.6); RBC Distribution Width SD 56.9 fl (35.1-43.9); Red Blood Count 3.97 M/mm3 (4.2-5.4)
[2019-03-22 11:55] LABS: POSITIVE COUNT NO; POSITIVE DIFFERENTIAL NO; POSITIVE MORPHOLOGY NO
[2019-03-22 12:00] LABS: Lactic Acid 2.8 mmol/L (0.4-2.0)
--- NOTE | 2019-03-22 12:00 | ED.RN ---
NOTIFIED OF LACTIC LEVEL OF 2.8.
[2019-03-22 12:11] LABS: Mucous, Urine 0 SEEN /hpf (<or=2+)
[2019-03-22 12:14] LABS: Color, Urine Yellow (Yellow); Glucose, Dipstick Normal (Normal); Ketone-Dipstick Negative (Negative); Leukocyte Esterase-Dipstick 500 /ul (Negative); Nitrite-Dipstick Positive (Negative); Occult Blood-Urine 250 /ul (Negative); Protein-Dipstick 100 mg/dl (Negative); Urine Bilirubin Dipstick Negative (Negative); Urine Clarity Sl. Cloudy (Clear); Urine Urobilinogen Normal (Normal); Urine pH 6.5 (5.0 - 8.0)
[2019-03-22 12:23] LABS: Bacteria 1+ /hpf (None Seen); Red Blood Cells-Urine 25-50 SEEN /hpf (0-5); Squamous Epithelial Cells - UA 0-5 SEEN /hpf (5-10); White Blood Cells 25-50 SEEN /hpf (0-5)
--- NOTE | 2019-03-22 12:40 | ED.RN ---
Delay in lab results due to inability to draw from 2 IV starts. Lab jaqueline blood. Henry irrigated without difficulty. Catheter drains without difficulty with gravity. Leakage noted at cath insertion site. Fentrated 4X4 dres[address] and additional dressing to area. Lower abd excoriated. has bacitracin in place and pillow case placed to avoid additional irritation.
--- NOTE | 2019-03-22 13:26 | PCM.HP.STD ---
Problem List (1) Candidal intertrigo Status: Acute (2) Sepsis Status: Acute (3) Debility Status: Chronic (4) MICHAELLE (acute kidney injury) Status: Acute (5) Depression Status: Chronic Qualifiers: (6) VITA (obstructive sleep apnea) Status: Chronic (8) UTI (urinary tract infection) Status: Acute Qualifiers: History of Present Illness Date of Admission: 03/22/19 Chief Complaint: Fever and chills The patient is a 73 year old F who was in her normal state of health developed fever and chills that began last night. Patient has a chronic suprapubic catheter and was changed over 2 weeks ago without incident. Patient does have intertrigo under her pannus which, according to individual present in the room, was on the left side but now is on the right side as well this is despite using nystatin 2-3 times per day. Patient presented to the emergency room and had what looks like another urinary tract infection on the urinalysis and received Zosyn. Patient initially relented about having a change of her suprapubic catheter given her anatomy where they have to actually pressure for the left and straight on. When I went to evaluate she was okay with them change that over in the emergency room and so did discuss with emergency room physician to get that changed over while she was there. Overall patient symptoms are similar to when she has had urinary tract infections in the past. [] Past Medical History Past Medical History (Chronic Problems): Chronic Problems Debility (Chronic) Depression (Chronic) VITA (obstructive sleep apnea) (Chronic) Medical History: Medical History (Last Updated 03/22/19 @ 13:35 by Luís Collazo DO) DM2 (diabetes mellitus, type 2) E11.9 Debility R53.81 VITA (obstructive sleep apnea) G47.33 HTN (hypertension) I10 Allergies adhesive tape Allergy (Verified 02/28/19 22:06) blisters Influenza Virus Vaccines Allergy (Verified 02/28/19 22:06) shortness of breath/severe wheezing iron Allergy (Verified 02/28/19 22:06) from IV form chest pressure and heart palpitations Sulfa (Sulfonamide Antibiotics) Allergy (Verified 02/28/19 22:06) Shortness of breath bactrim does not work for her-per pcp paperwork meloxicam [From Mob] Adverse Reaction (Verified 02/28/19 22:06) gi upset seasonal allergies Allergy (Uncoded 02/28/19 22:06) Other Home Medications: Ambulatory Orders Medication Instructions Recorded DiphenhydrAMINE [Benadryl] 25 mg PO BID PRN PRN 09/30/13 Furosemide [Lasix] 20 mg PO TID 09/30/13 Pantoprazole Sodium [Protonix] 40 mg PO DAILY 09/30/13 Albuterol Inhaler [Ventolin Hfa] 2 puff INHALATION Q4H PRN PRN 10/30/18 Baclofen 10 mg PO TID 10/30/18 Cholecalciferol (VIT D3) [Vitamin 1,000 unit PO DAILY 10/30/18 D3] Cranberry Conc/Ascorbic Acid 1 each PO BID 10/30/18 [Cranberry Concentrate Softgel] Diphenoxylate/Atrop [Lomotil] 1 tablet PO 4X/DAY PRN PRN 10/30/18 Duloxetine Hcl [Cymbalta] 30 mg PO DAILY 10/30/18 Fluticasone 0.05% [Flonase Nasal 2 spray NASAL DAILY 10/30/18 [place]] Gabapentin [Neurontin] 600 mg PO BID 10/30/18 Guaifenesin [Mucinex] 1,200 mg PO BID PRN 10/30/18 Hydrocodone Bitart/Apap 5-325 1 tablet PO Q6H PRN PRN 10/30/18 [[place] 5/325] Lisinopril [Zestril] 10 mg PO DAILY 10/30/18 Metformin HCl [Glucophage] 500 mg PO BID 10/30/18 Metoprolol(XL)Succ [Toprol Xl 25 mg PO DAILY 10/30/18 (Beta [place])] Multivitamins,Ther W-Minerals 1 tablet PO 4X/DAY 10/30/18 [Multivitamin With Minerals] Mupirocin [Bactroban] 1 applicatio TOPICAL BID 10/30/18 Nystatin Powder [Mycostatin Powder] 1 applicatio TOPICAL BID PRN PRN 10/30/18 Oxybutynin Chloride [Ditropan Xl] 15 mg PO DAILY 10/30/18 Potassium (Otc) [Potassium OTC] 99 mg PO DAILY 10/30/18 Ranitidine [Zantac] 150 mg PO BID 10/30/18 Triamcinolone 0.1% Dental Pst 1 applicatio TOPICAL 4X/DAY 10/30/18 [Kenalog Dental Paste] Vitamin E 400 units PO BID 10/30/18 levETIRAcetam tablet [Keppra 500 mg PO QHS 10/30/18 tablet] Acetaminophen [Tylenol] 650 mg PO Q6H PRN PRN 12/17/18 Cyanocobalamin (Vitamin B-12) 1,000 mcg PO DAILY 12/17/18 [B-12] Guaifenesin 400 mg PO Q4H PRN PRN 12/17/18 Pravastatin [Pravachol] 20 mg PO QHS 12/17/18 Venlafaxine HCl [Effexor] 150 mg PO BID 12/17/18 Amoxicillin [Amoxil] 500 mg PO Q12H #6 capsule 03/04/19 Surgical History: cholecystectomy, hysterectomy Psychiatric History: Anxiety, Bipolar, Depression 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 Denies: Anorexia Eyes: Denies: Blurred vision, Double vision HEENT: Denies: Head Aches, Sinus Congestion, Sinus Drainage Cardiovascular: Denies: Chest Pain, Palpitations Respiratory: Denies: Cough, Shortness of breath at rest, Sputum production Gastrointestinal: Denies: Abdominal Pain, Nausea, Vomiting Genitourinary: Denies: Dysuria, Hematuria Gynecological: Reports: Breast symptoms Musculoskeletal: Denies: Arm Pain, Hand Pain Skin: Reports: Rash Neurological: Reports: Balance problems Psychiatric: Reports: Anxiety, Depression Endocrine: Reports: Change in Body Habitus, Heat/ Cold Intolerance Comment: A 10 point review of systems were negative except as mentioned in the history of present illness and the other review of systems. VTE Information - Inpt Only VTE Present on Admission: No VTE Pharm Prophylaxis ordered?: Yes Patient Problems: Active and Suspected Problems Candidal intertrigo (Acute) - Physical Exam General: Alert, Cooperative, No apparent distress HEENT: Atraumatic, Normocephalic Oral: Moist Mucosa, No Gingival or Mucosal Lesions/ Ulcerations Neck: No Nuchal Rigidity Lungs: Clear to auscultation Cardiovascular: Regular rate, Regular Rhythm, Normal S1, Normal S2, No murmurs Abdomen: Bowel Sounds Present, Soft, Non Tender, Non-Distended, No Hepato-splenomegaly, Obese Extremities: No edema, No Calf Tenderness Skin: - - Tianna intertrigo underneath her entire pannus. Patient does have some skin tears under the left side. Musculoskeletal: No Tenderness to Palpation of Joints or Extremities, No Muscle Wasting Neurological: Muscle tone normal, Sensory exam intact to light touch and pain Psych/Mental Status: Normal Affect, Appropriate Vital Signs Temp Pulse Resp BP Pulse Ox 38.1 C H 120 H 13 112/78 97 03/22/19 12:14 03/22/19 12:14 03/22/19 12:14 03/22/19 12:14 03/22/19 12:14 Oxygen Flow Rate (L/min) 2 Oxygen Delivery Method Nasal Cannula Weight: 153 kg Body Mass Index (BMI) 52.8 Laboratory Tests Past 24 Hrs 03/22/19 03/22/19 03/22/19 11:20 11:20 11:20 WBC 14.0 H RBC 3.97 L Hgb 11.2 L Hct 35.7 L MCV 89.9 MCH 28.2 MCHC 31.4 L RDW 17.2 H RDW Differential 56.9 H Plt Count 289 MPV 9.5 Immature Gran % (Auto) 0.200 Neut % (Auto) 83.4 H Lymph % (Auto) 7.1 L [place] % (Auto) 9.1 Eos % (Auto) 0.1 Baso % (Auto) 0.1 Absolute Neuts (auto) 11.7 H Absolute Lymphs (auto) 1.00 Total Counted Not Reportable PT 15.4 H INR 1.2 APTT 33.7 Sodium 132 L Potassium 4.6 Chloride 96 L Carbon Dioxide 27.0 Anion Gap 9 BUN 27 H Creatinine 1.97 H Estim Creat Clear Calc 25.10 Est GFR (MDRD) Af Amer 32 L Est GFR (MDRD) Non-Af 27 L BUN/Creatinine Ratio 13.7 Glucose 141 H Lactic Acid Calcium 9.1 Total Bilirubin 0.60 AST 11 L ALT 13 Alkaline Phosphatase 75 Total Protein 8.4 H Albumin 2.7 L Globulin 5.7 H Albumin/Globulin Ratio 0.5 L Urine Color Urine Clarity Urine pH Ur Specific [place] Urine Protein Urine Glucose (UA) Urine Ketones Urine Occult Blood Urine Nitrite Urine Bilirubin Urine Urobilinogen Ur Leukocyte Esterase Urine RBC Urine WBC Ur Squamous Epith Cells Urine Bacteria Urine Mucus 03/22/19 03/22/19 11:20 12:00 WBC RBC Hgb Hct MCV MCH MCHC RDW RDW Differential Plt Count MPV Immature Gran % (Auto) Neut % (Auto) Lymph % (Auto) [place] % (Auto) Eos % (Auto) Baso % (Auto) Absolute Neuts (auto) Absolute Lymphs (auto) Total Counted PT INR APTT Sodium Potassium Chloride Carbon Dioxide Anion Gap BUN Creatinine Estim Creat Clear Calc Est GFR (MDRD) Af Amer Est GFR (MDRD) Non-Af BUN/Creatinine Ratio Glucose Lactic Acid 2.8 H Calcium Total Bilirubin AST ALT Alkaline Phosphatase Total Protein Albumin Globulin Albumin/Globulin Ratio Urine Color Yellow Urine Clarity Sl. Cloudy Urine pH 6.5 Ur Specific [place] 1.010 Urine Protein 100 H Urine Glucose (UA) Normal Urine Ketones Negative Urine Occult Blood 250 H Urine Nitrite Positive H Urine Bilirubin Negative Urine Urobilinogen Normal Ur Leukocyte Esterase 500 H Urine RBC 25-50 SEEN Urine WBC 25-50 SEEN Ur Squamous Epith Cells 0-5 SEEN Urine Bacteria 1+ Urine Mucus 0 SEEN Assessment/Plan All Active Problems Candidal intertrigo (Acute) Sepsis (Acute) MICHAELLE (acute kidney injury) (Acute) UTI (urinary tract infection) (Acute) Suprapubic catheter dysfunction (Resolved) 1. Sepsis Present on arrival Secondary to UTI supportive management 2. UTI Catheter associated as patient has a chronic suprapubic catheter after discussing with the patient, patient is Okay with having the staff in the emergency room changed over. Patient expressed that due to her anatomy, they have to purchase at an angle from the left going medially. Discussed with Dr. Costello who will revise the emergency room staff about replacement in the emergency room. Will continue with Zosyn but anticipate that de-escalation based on the final culture results 3. MICHAELLE Baseline creatinine appears to be around 1.3, today is 1.97. We will hold patient's furosemide as well as metformin. Give IV fluids and reevaluate in the morning 4. Tianna intertrigo I do not appreciate any cellulitis but the rash underneath her pannus seems to be more consistent with Tianna intertrigo Nystatin and continue to keep the area dry as best as possible She does have a skin tear on the left side, so we will have wound care come evaluate her. 5. Diabetes mellitus type 2: Metformin will be held Moderate dose sliding scale for the meantime 6. VTE prophylaxis: Lovenox. Code Visit Inpatient E&M: 31134 Init Hosp L3
--- NOTE | 2019-03-22 13:32 | HP.PCM_ITS ---
Problem List (1) Candidal intertrigo Status: Acute (2) Sepsis Status: Acute (3) Debility Status: Chronic (4) MICHAELLE (acute kidney injury) Status: Acute (5) Depression Status: Chronic Qualifiers: (6) VITA (obstructive sleep apnea) Status: Chronic (8) UTI (urinary tract infection) Status: Acute Qualifiers: History of Present Illness Date of Admission: 03/22/19 Chief Complaint: Fever and chills The patient is a 73 year old F who was in her normal state of health developed fever and chills that began last night. Patient has a chronic suprapubic catheter and was changed over 2 weeks ago without incident. Patient does have intertrigo under her pannus which, according to individual present in the room, was on the left side but now is on the right side as well this is despite using nystatin 2-3 times per day. Patient presented to the emergency room and had what looks like another urinary tract infection on the urinalysis and received Zosyn. Patient initially relented about having a change of her suprapubic catheter given her anatomy where they have to actually pressure for the left and straight on. When I went to evaluate she was okay with them change that over in the emergency room and so did discuss with emergency room physician to get that changed over while she was there. Overall patient symptoms are similar to when she has had urinary tract infections in the past. [] Past Medical History Past Medical History (Chronic Problems): Chronic Problems Debility (Chronic) Depression (Chronic) VITA (obstructive sleep apnea) (Chronic) Medical History: Medical History (Last Updated 03/22/19 @ 13:35 by Luís Collazo DO) DM2 (diabetes mellitus, type 2) E11.9 Debility R53.81 VITA (obstructive sleep apnea) G47.33 HTN (hypertension) I10 Allergies adhesive tape Allergy (Verified 02/28/19 22:06) blisters Influenza Virus Vaccines Allergy (Verified 02/28/19 22:06) shortness of breath/severe wheezing iron Allergy (Verified 02/28/19 22:06) from IV form chest pressure and heart palpitations Sulfa (Sulfonamide Antibiotics) Allergy (Verified 02/28/19 22:06) Shortness of breath bactrim does not work for her-per pcp paperwork meloxicam [From Mob] Adverse Reaction (Verified 02/28/19 22:06) gi upset seasonal allergies Allergy (Uncoded 02/28/19 22:06) Other Home Medications: Ambulatory Orders Medication Instructions Recorded DiphenhydrAMINE [Benadryl] 25 mg PO BID PRN PRN 09/30/13 Furosemide [Lasix] 20 mg PO TID 09/30/13 Pantoprazole Sodium [Protonix] 40 mg PO DAILY 09/30/13 Albuterol Inhaler [Ventolin Hfa] 2 puff INHALATION Q4H PRN PRN 10/30/18 Baclofen 10 mg PO TID 10/30/18 Cholecalciferol (VIT D3) [Vitamin 1,000 unit PO DAILY 10/30/18 D3] Cranberry Conc/Ascorbic Acid 1 each PO BID 10/30/18 [Cranberry Concentrate Softgel] Diphenoxylate/Atrop [Lomotil] 1 tablet PO 4X/DAY PRN PRN 10/30/18 Duloxetine Hcl [Cymbalta] 30 mg PO DAILY 10/30/18 Fluticasone 0.05% [Flonase Nasal 2 spray NASAL DAILY 10/30/18 [place]] Gabapentin [Neurontin] 600 mg PO BID 10/30/18 Guaifenesin [Mucinex] 1,200 mg PO BID PRN 10/30/18 Hydrocodone Bitart/Apap 5-325 1 tablet PO Q6H PRN PRN 10/30/18 [[place] 5/325] Lisinopril [Zestril] 10 mg PO DAILY 10/30/18 Metformin HCl [Glucophage] 500 mg PO BID 10/30/18 Metoprolol(XL)Succ [Toprol Xl 25 mg PO DAILY 10/30/18 (Beta [place])] Multivitamins,Ther W-Minerals 1 tablet PO 4X/DAY 10/30/18 [Multivitamin With Minerals] Mupirocin [Bactroban] 1 applicatio TOPICAL BID 10/30/18 Nystatin Powder [Mycostatin Powder] 1 applicatio TOPICAL BID PRN PRN 10/30/18 Oxybutynin Chloride [Ditropan Xl] 15 mg PO DAILY 10/30/18 Potassium (Otc) [Potassium OTC] 99 mg PO DAILY 10/30/18 Ranitidine [Zantac] 150 mg PO BID 10/30/18 Triamcinolone 0.1% Dental Pst 1 applicatio TOPICAL 4X/DAY 10/30/18 [Kenalog Dental Paste] Vitamin E 400 units PO BID 10/30/18 levETIRAcetam tablet [Keppra 500 mg PO QHS 10/30/18 tablet] Acetaminophen [Tylenol] 650 mg PO Q6H PRN PRN 12/17/18 Cyanocobalamin (Vitamin B-12) 1,000 mcg PO DAILY 12/17/18 [B-12] Guaifenesin 400 mg PO Q4H PRN PRN 12/17/18 Pravastatin [Pravachol] 20 mg PO QHS 12/17/18 Venlafaxine HCl [Effexor] 150 mg PO BID 12/17/18 Amoxicillin [Amoxil] 500 mg PO Q12H #6 capsule 03/04/19 Surgical History: cholecystectomy, hysterectomy Psychiatric History: Anxiety, Bipolar, Depression 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 Denies: Anorexia Eyes: Denies: Blurred vision, Double vision HEENT: Denies: Head Aches, Sinus Congestion, Sinus Drainage Cardiovascular: Denies: Chest Pain, Palpitations Respiratory: Denies: Cough, Shortness of breath at rest, Sputum production Gastrointestinal: Denies: Abdominal Pain, Nausea, Vomiting Genitourinary: Denies: Dysuria, Hematuria Gynecological: Reports: Breast symptoms Musculoskeletal: Denies: Arm Pain, Hand Pain Skin: Reports: Rash Neurological: Reports: Balance problems Psychiatric: Reports: Anxiety, Depression Endocrine: Reports: Change in Body Habitus, Heat/ Cold Intolerance Comment: A 10 point review of systems were negative except as mentioned in the history of present illness and the other review of systems. VTE Information - Inpt Only VTE Present on Admission: No VTE Pharm Prophylaxis ordered?: Yes Patient Problems: Active and Suspected Problems Candidal intertrigo (Acute) - Physical Exam General: Alert, Cooperative, No apparent distress HEENT: Atraumatic, Normocephalic Oral: Moist Mucosa, No Gingival or Mucosal Lesions/ Ulcerations Neck: No Nuchal Rigidity Lungs: Clear to auscultation Cardiovascular: Regular rate, Regular Rhythm, Normal S1, Normal S2, No murmurs Abdomen: Bowel Sounds Present, Soft, Non Tender, Non-Distended, No Hepato- splenomegaly, Obese Extremities: No edema, No Calf Tenderness Skin: - - Tianna intertrigo underneath her entire pannus. Patient does have some skin tears under the left side. Musculoskeletal: No Tenderness to Palpation of Joints or Extremities, No Muscle Wasting Neurological: Muscle tone normal, Sensory exam intact to light touch and pain Psych/Mental Status: Normal Affect, Appropriate Vital Signs Temp Pulse Resp BP Pulse Ox 38.1 C H 120 H 13 112/78 97 03/22/19 12:14 03/22/19 12:14 03/22/19 12:14 03/22/19 12:14 03/22/19 12:14 Oxygen Flow Rate (L/min) 2 Oxygen Delivery Method Nasal Cannula Weight: 153 kg Body Mass Index (BMI) 52.8 Laboratory Tests Past 24 Hrs 03/22/19 03/22/19 03/22/19 11:20 11:20 11:20 WBC 14.0 H RBC 3.97 L Hgb 11.2 L Hct 35.7 L MCV 89.9 MCH 28.2 MCHC 31.4 L RDW 17.2 H RDW Differential 56.9 H Plt Count 289 MPV 9.5 Immature Gran % (Auto) 0.200 Neut % (Auto) 83.4 H Lymph % (Auto) 7.1 L [place] % (Auto) 9.1 Eos % (Auto) 0.1 Baso % (Auto) 0.1 Absolute Neuts (auto) 11.7 H Absolute Lymphs (auto) 1.00 Total Counted Not Reportable PT 15.4 H INR 1.2 APTT 33.7 Sodium 132 L Potassium 4.6 Chloride 96 L Carbon Dioxide 27.0 Anion Gap 9 BUN 27 H Creatinine 1.97 H Estim Creat Clear Calc 25.10 Est GFR (MDRD) Af Amer 32 L Est GFR (MDRD) Non-Af 27 L BUN/Creatinine Ratio 13.7 Glucose 141 H Lactic Acid Calcium 9.1 Total Bilirubin 0.60 AST 11 L ALT 13 Alkaline Phosphatase 75 Total Protein 8.4 H Albumin 2.7 L Globulin 5.7 H Albumin/Globulin Ratio 0.5 L Urine Color Urine Clarity Urine pH Ur Specific [place] Urine Protein Urine Glucose (UA) Urine Ketones Urine Occult Blood Urine Nitrite Urine Bilirubin Urine Urobilinogen Ur Leukocyte Esterase Urine RBC Urine WBC Ur Squamous Epith Cells Urine Bacteria Urine Mucus 03/22/19 03/22/19 11:20 12:00 WBC RBC Hgb Hct MCV MCH MCHC RDW RDW Differential Plt Count MPV Immature Gran % (Auto) Neut % (Auto) Lymph % (Auto) [place] % (Auto) Eos % (Auto) Baso % (Auto) Absolute Neuts (auto) Absolute Lymphs (auto) Total Counted PT INR APTT Sodium Potassium Chloride Carbon Dioxide Anion Gap BUN Creatinine Estim Creat Clear Calc Est GFR (MDRD) Af Amer Est GFR (MDRD) Non-Af BUN/Creatinine Ratio Glucose Lactic Acid 2.8 H Calcium Total Bilirubin AST ALT Alkaline Phosphatase Total Protein Albumin Globulin Albumin/Globulin Ratio Urine Color Yellow Urine Clarity Sl. Cloudy Urine pH 6.5 Ur Specific [place] 1.010 Urine Protein 100 H Urine Glucose (UA) Normal Urine Ketones Negative Urine Occult Blood 250 H Urine Nitrite Positive H Urine Bilirubin Negative Urine Urobilinogen Normal Ur Leukocyte Esterase 500 H Urine RBC 25-50 SEEN Urine WBC 25-50 SEEN Ur Squamous Epith Cells 0-5 SEEN Urine Bacteria 1+ Urine Mucus 0 SEEN Assessment/Plan All Active Problems Candidal intertrigo (Acute) Sepsis (Acute) MICHAELLE (acute kidney injury) (Acute) UTI (urinary tract infection) (Acute) Suprapubic catheter dysfunction (Resolved) 1. Sepsis * Present on arrival * Secondary to UTI * supportive management * 2. UTI * Catheter associated as patient has a chronic suprapubic catheter after discussing with the patient, patient is * Okay with having the staff in the emergency room changed over. Patient expressed that due to her anatomy, they have to purchase at an angle from the left going medially. Discussed with Dr. Costello who will revise the emergency room staff about replacement in the emergency room. * Will continue with Zosyn but anticipate that de-escalation based on the final culture results 3. MICHAELLE * Baseline creatinine appears to be around 1.3, today is 1.97. We will hold patient's furosemide as well as metformin. * Give IV fluids and reevaluate in the morning 4. Tianna intertrigo * I do not appreciate any cellulitis but the rash underneath her pannus seems to be more consistent with Tianna intertrigo * Nystatin and continue to keep the area dry as best as possible * She does have a skin tear on the left side, so we will have wound care come evaluate her. 5. Diabetes mellitus type 2: * Metformin will be held * Moderate dose sliding scale for the meantime 6. VTE prophylaxis: Lovenox. Code Visit Inpatient E&M: 46839 Init Hosp L3
[2019-03-22] MEDS: 0.9% Normal Saline 1,000 ML 125 ML IV ×2 (14:00→22:45)
[2019-03-22 15:23] LABS: Reflex Lactate? Y
--- NOTE | 2019-03-22 15:26 | NURSING ---
wound photo: left abdominal fold
--- NOTE | 2019-03-22 15:26 | NURSING ---
wound photo: left posterior thigh
--- NOTE | 2019-03-22 15:27 | NURSING ---
wound photo: sacrum
[2019-03-22] MEDS: Baclofen 10 MG Tablet PO (15:56)
[2019-03-22] MEDS: Acetaminophen 325 MG Tablet 650 MG PO (16:39)
[2019-03-22] MEDS: Multivitamins,Ther W-Minerals Tablet 1 TABLET PO ×2 (16:42→22:10)
[2019-03-22 16:45] LABS: Bedside Glucose 146 mg/dL (70-110)
[2019-03-22 16:50] LABS: Lactic Acid 2.1 mmol/L (0.4-2.0)
--- NOTE | 2019-03-22 21:57 | EKG12_ITS ---
Test Reason : POST CARDIOVERSION Blood Pressure : / mmHG Vent. Rate : 122 BPM Atrial Rate : 122 BPM P-R Int : 170 ms QRS Dur : 060 ms QT Int : 282 ms P-R-T Axes : 000 -47 003 degrees QTc Int : 401 ms Sinus tachycardia with Premature atrial complexes Left axis deviation Low voltage QRS [place] Septal infarct , age undetermined , cannot be excluded Abnormal ECG Confirmed by SEBASTIÁN THOMPSON, KENNEDY ([id number]), newspaper copy editor BROOKS WIGGINS ([id number]) on 03/27/2019 2:07:30 PM Referred By: MIKE Confirmed By:KENNEDY LOWERY MD
--- NOTE | 2019-03-22 22:00 | PCM.HOSP.N ---
Hospitalist Note Called per nursing staff, noted patient intermittently on telemetry would increase HR to 140-160s but quickly decrease. Called w/ sustained HR 190s, no improvement with vagal maneuvers. EKG w/ rate 190, unable to distinguish given rate but narrow complex. BP stable. Patient administered 6 mg IV adenosine w/ rate improvement to 120s, EKG repeat w/ appearance sinus tachycardia. Fever present. Normal saline bolus and continued infusion ordered. Lopressor 5 mg IV x 1 initiated. Patient transferred to PCU. Maintain on telemetry, cycling enzymes, repeat EKG in AM, mag requested, noted recent ECHO 10/2018 w/ estimated ejection fraction is 75 %, stage 1 diastolic dysfunction, left atrium is moderately enlarged, unable to estimate RV systolic pressure due to inadequate jet, pulmonary artery pressure probably normal.
[2019-03-22] MEDS: levETIRAcetam 500 MG Tablet PO (22:03)
[2019-03-22] MEDS: Venlafaxine XR 150 MG Capsule PO (22:04)
[2019-03-22] MEDS: Gabapentin 600 MG Tablet PO (22:06)
[2019-03-22] MEDS: Pravastatin 20 MG Tablet PO (22:07)
[2019-03-22] MEDS: Vitamin E 400 UNITS Capsule PO (22:08)
[2019-03-22] MEDS: 0.9% NaCl Peripheral Flush Adult/Peds IV ×2 (22:11→22:13)
[2019-03-22] MEDS: Adenosine 6 MG/2 ML Syringe IV (22:13)
[2019-03-22] MEDS: Metoprolol Tartrate 5 MG/5 ML Vial IV (22:13)
[2019-03-22] MEDS: 0.9% Normal Saline 1,000 ML 999 ML IV (22:14)
[2019-03-22] MEDS: 0.9% NaCl IVPB Med Flush (250 mL) 15 ML IV (22:15)
[2019-03-22 22:16] LABS: Bedside Glucose 169 mg/dL (70-110)
--- NOTE | 2019-03-22 22:34 | EKG12_ITS ---
Test Reason : SVT Blood Pressure : / mmHG Vent. Rate : 197 BPM Atrial Rate : 027 BPM P-R Int : 000 ms QRS Dur : 082 ms QT Int : 254 ms P-R-T Axes : 000 131 201 degrees QTc Int : 460 ms Supraventricular tachycardia Left posterior fascicular block Inferior infarct , age undetermined , cannot be excluded Nonspecific ST segment abnormality Abnormal ECG Confirmed by SEBASTIÁN THOMPSON, KENNEDY ([id number]), deputy editor in chief BROOKS WIGGINS ([id number]) on 03/27/2019 2:08:32 PM Referred By: MIKE Confirmed By:KENNEDY LOWERY MD
--- NOTE | 2019-03-22 23:24 | NURSING ---
TRANSFER REPORT CALLED TO MARCIA MUÑOZ, PCU
[2019-03-23] VITALS (18 sets, daily range): BP systolic 104–122; BP diastolic 42–53; PULSE 95–118; RESP 17–18; TEMP 37.1–38.2; O2SAT 94–100
[2019-03-23] MEDS: Acetaminophen 325 MG Tablet 650 MG PO ×3 (02:36→16:33)
[2019-03-23] MEDS: Metoprolol(XL)Succ 25 MG Tablet PO ×2 (02:38→09:48)
--- NOTE | 2019-03-23 03:06 | PCM.RX.CS ---
Consult Pharmacy has been consulted to manage selected antiobiotic: Vancomycin Type of Consult: New start Labs: Sodium 132 mmol/L (136-145) L 03/22/19 11:20 Potassium 4.6 mmol/L (3.5-5.1) 03/22/19 11:20 Chloride 96 mmol/L (98-107) L 03/22/19 11:20 Carbon Dioxide 27.0 mmol/L (21.0-32.0) 03/22/19 11:20 Anion Gap 9 (5-15) 03/22/19 11:20 BUN 27 mg/dL (7-18) H 03/22/19 11:20 Creatinine 1.97 mg/dL (0.55-1.02) H 03/22/19 11:20 Est GFR (MDRD) Af Amer 32 mL/min (>60) L 03/22/19 11:20 Est GFR (MDRD) Non-Af 27 mL/min (>60) L 03/22/19 11:20 BUN/Creatinine Ratio 13.7 RATIO (10-20) 03/22/19 11:20 Glucose 141 mg/dL (74-106) H 03/22/19 11:20 Microbiology: Microbiology 03/22/19 10:57 Blood Culture (Wb) - Other Blood Culture - Preliminary Estimated Creatinine Clearance: 40 Goal Trough: 10-15 mcg/mL Pharmacy Plan for Drug Dosing: Pharmacy Service will continue to monitor and adjust dosing as required. Medications Vancomycin HCl 2,000 mg/ (Sodium Chloride) 540 mls @ 250 mls/hr IV X1 ONE Stop: 03/23/19 04:39 Last Admin: 03/23/19 02:20 Dose: 250 mls/hr Vancomycin HCl 1,500 mg/ (Sodium Chloride) 530 mls @ 250 mls/hr IV Q24H ZARINA Follow-Up Labs: Trough Vancomycin Labs to be done on [date and time ordered]: 03/25 @ 0200
[2019-03-23] MEDS: Baclofen 10 MG Tablet PO ×3 (05:02→22:43)
[2019-03-23 05:55] LABS: Absolute Lymphocyte Count 0.74 X10^3/ul (0.83-4.51); Absolute Neutrophil Count 9.6 X10^3/uL (2.0-7.7); Basophil# 0.02 X10^3/uL; Basophil% 0.2 % (0-1); Hemoglobin 9.5 g/dl (12.0-15.0); Lymphocyte # 0.74 X10^3/ul (4.0); Lymphocyte % 6.7 % (19-41); Mean Corp Hgb Conc 30.6 g/gl (32-36); Mean Corpuscular Hgb 27.8 pg (27.0-32.0); Mean Corpuscular Volume 90.6 fL (81-99); Mean Platelet Vol. 9.9 fl (6.2-12.0); Monocyte# 0.66 X10^3/uL; Neutrophil # 9.55 X10^3/uL (2.7-7.7); Neutrophil % 86.6 % (47-70); Platelet Count 262 K/mm3 (150-450); RBC Distribution Width CV 17.2 % (11.6-14.6); RBC Distribution Width SD 55.8 fl (35.1-43.9); Red Blood Count 3.42 M/mm3 (4.2-5.4)
--- NOTE | 2019-03-23 05:55 | EKG12_ITS ---
Test Reason : AM EKG Blood Pressure : / mmHG Vent. Rate : 110 BPM Atrial Rate : 110 BPM P-R Int : 122 ms QRS Dur : 066 ms QT Int : 338 ms P-R-T Axes : -66 066 045 degrees QTc Int : 457 ms Unusual P axis and short [place], probable junctional tachycardia with Premature atrial complexes Low voltage QRS Abnormal ECG Confirmed by SEBASTIÁN THOMPSON, KENNEDY ([id number]), editorial cartoonist BROOKS WIGGINS ([id number]) on 03/27/2019 2:01:20 PM Referred By: DR MCKEON Confirmed By:KENNEDY LOWERY MD
[2019-03-23 05:59] LABS: POSITIVE COUNT NO; POSITIVE DIFFERENTIAL NO; POSITIVE MORPHOLOGY NO
[2019-03-23 06:23] LABS: Anion Gap 8 (5-15); BUN 31 mg/dL (7-18); BUN/Creat Ratio 16.9 RATIO (10-20); Calcium,Total 8.1 mg/dL (8.5-10.1); Chloride 102 mmol/L (98-107); Creatinine, Serum 1.83 mg/dL (0.55-1.02); EST Glomerular Filtration Rate 29 mL/min (>60); Est Glom Filt Rate - Afr Amer 35 mL/min (>60); Estimated Creatinine Clearance 27.02 ml/min; Glucose 156 mg/dL (74-106); Potassium 3.8 mmol/L (3.5-5.1); Sodium Level 135 mmol/L (136-145)
[2019-03-23 07:10] LABS: Bedside Glucose 131 mg/dL (70-110)
[2019-03-23] MEDS: 0.9% Normal Saline 1,000 ML 125 ML IV ×2 (09:40→17:02)
[2019-03-23] MEDS: Tolterodine Tartrate 4 MG CAP.SA PO (09:43)
[2019-03-23] MEDS: DULoxetine Hcl 30 MG Capsule PO (09:43)
[2019-03-23] MEDS: Venlafaxine XR 150 MG Capsule PO ×2 (09:44→22:43)
[2019-03-23] MEDS: Enoxaparin 30 MG/0.3 ML Syringe SC (09:45)
[2019-03-23] MEDS: Multivitamins,Ther W-Minerals Tablet 1 TABLET PO ×4 (09:46→22:43)
[2019-03-23] MEDS: Famotidine 20 MG Tablet PO (09:47)
[2019-03-23] MEDS: Gabapentin 600 MG Tablet PO ×2 (09:47→22:43)
[2019-03-23] MEDS: Pantoprazole Sodium 40 MG Tablet PO (09:48)
[2019-03-23] MEDS: Vitamin E 400 UNITS Capsule PO ×2 (09:49→22:44)
[2019-03-23] MEDS: Cyanocobalamin 500 MCG Tablet 1000 MCG PO (09:49)
[2019-03-23] MEDS: Lisinopril 10 MG Tablet PO (09:50)
--- NOTE | 2019-03-23 10:07 | PCM.CONS.C ---
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 According to the patient's sister, much of which the history is obtained, the patient had several episodes of CPR and was in a coma for about a week and a half. She had transitory in your area requiring hemodialysis for about a week and a half at that time. It was found the patient had severe urosepsis, and subsequently received a suprapubic catheter which is been in place for the past 8 years. [] According to the daughter, the patient developed fevers, chills, and worsening superficial skin infection along her skin folds along her abdominal wall. Patient was admitted for recurrent urinary tract infection as well as superficial skin infection. Her initial EKG showed normal sinus rhythm,which then gave way to atrial flutter with 2-1 conduction, followed by sinus tachycardia followed by an ectopic atrial tachycardia low voltage, poor wave progression across the precordium, but no acute changes. Patient was seen urgently by Dr. Collazo last evening who administered adenosine followed by beta-genaro therapy. Heart rate then slowed down and is currently in normal sinus rhythm. She has baseline Toprol 25 mg p.o. daily at home for hypertension. At no time did the patient complained of any chest pain or angina but did complain of dyspnea. She had transient low blood pressure, which improved with heart rate control. Her most recent echocardiogram dated 10/31/2018 showed an EF of 75%, moderate left atrial enlargement, unable to quantitate RVSP. She has never had a heart catheterization. No troponins were obtained. Past Medical History Allergies/Adverse Reactions: Allergies adhesive tape Allergy (Verified 02/28/19 22:06) blisters Influenza Virus Vaccines Allergy (Verified 02/28/19 22:06) shortness of breath/severe wheezing iron Allergy (Verified 02/28/19 22:06) from IV form chest pressure and heart palpitations Sulfa (Sulfonamide Antibiotics) Allergy (Verified 02/28/19 22:06) Shortness of breath bactrim does not work for her-per pcp paperwork meloxicam [From Mobic] Adverse Reaction (Verified 02/28/19 22:06) gi upset seasonal allergies Allergy (Uncoded 02/28/19 22:06) Other Home Medications: Ambulatory Orders Medication Instructions Recorded DiphenhydrAMINE [Benadryl] 25 mg PO BID PRN PRN 09/30/13 Furosemide [Lasix] 20 mg PO TID 09/30/13 Pantoprazole Sodium [Protonix] 40 mg PO DAILY 09/30/13 Albuterol Inhaler [Ventolin Hfa] 2 puff INHALATION Q4H PRN PRN 10/30/18 Baclofen 10 mg PO TID 10/30/18 Cholecalciferol (VIT D3) [Vitamin 1,000 unit PO DAILY 10/30/18 D3] Cranberry Conc/Ascorbic Acid 1 each PO BID 10/30/18 [Cranberry Concentrate Softgel] Diphenoxylate/Atrop [Lomotil] 1 tablet PO 4X/DAY PRN PRN 10/30/18 Gabapentin [Neurontin] 600 mg PO BID 10/30/18 Lisinopril [Zestril] 10 mg PO DAILY 10/30/18 Metformin HCl [Glucophage] 500 mg PO BID 10/30/18 Metoprolol(XL)Succ [Toprol Xl 25 mg PO DAILY 10/30/18 (Beta Genaro)] Multivitamins,Ther W-Minerals 1 tablet PO 4X/DAY 10/30/18 [Multivitamin With Minerals] Nystatin Powder [Mycostatin Powder] 1 applicatio TOPICAL BID PRN PRN 10/30/18 Oxybutynin Chloride [Ditropan Xl] 15 mg PO DAILY 10/30/18 Potassium (Otc) [Potassium OTC] 99 mg PO DAILY 10/30/18 Ranitidine [Zantac] 150 mg PO BID 10/30/18 Vitamin E 400 units PO BID 10/30/18 levETIRAcetam tablet [Keppra 500 mg PO QHS 10/30/18 tablet] Cyanocobalamin (Vitamin B-12) 1,000 mcg PO DAILY 12/17/18 [B-12] Pravastatin [Pravachol] 20 mg PO QHS 12/17/18 Venlafaxine HCl [Effexor] 150 mg PO BID 12/17/18 Duloxetine HCl 60 mg PO DAILY 03/22/19 Naproxen [Naprosyn] 500 mg PO BID PRN PRN 03/22/19 Nitrofurantoin Macrocrystal 100 mg PO QHS 03/22/19 [Nitrofurantoin] Past Medical History (Chronic Problems): Chronic Problems (Last Updated 03/22/19 @ 13:35 by Luís Collazo DO) Debility (Chronic) Depression (Chronic) VITA (obstructive sleep apnea) (Chronic) Surgical History: cholecystectomy, hysterectomy Psychiatric History: Anxiety, Bipolar, Depression RESOLUTION MANAGER History: No pertinent RESOLUTION MANAGER history - *Family History Maternal History Items: Diabetes, Heart Disease - Her father had a CABG and CHF, Unknown Paternal History Items: Heart Disease, No pertinent history Smoking Status: Never smoker Review of Systems - Review of Systems General: Reports: Fever, Chills, Weakness. Denies: Fatigue, Night Sweats Cardiovascular: Reports: Shortness of Breath at Rest. Denies: Chest Discomfort, Shortness of Breath, Orthopnea, PND, Peripheral Edema, Palpitations, Lightheadedness, Dizziness, Near Syncope, Syncope Respiratory: Denies: Cough, Sputum Production, Hemoptysis Gastrointestinal: Denies: Hematemesis, Hematochezia, Melena Genitourinary: Denies: Dysuria, Hematuria Skin: Denies: Rash Subjectve: Patient resting comfortably, awake, alert, answers questions appropriately. No acute distress. Objective: Vital Signs Temp Pulse Resp BP Pulse Ox 100.7 F H 105 H 18 115/52 L 97 03/23/19 09:38 03/23/19 09:48 03/23/19 09:38 03/23/19 09:38 03/23/19 09:38 Oxygen Flow Rate (L/min) 2 Oxygen Delivery Method Nasal Cannula Weight: 337 lb 4.916 oz Body Mass Index (BMI) 52.8 Intake and Output for Last 24 Hours 03/21/19 03/22/19 03/23/19 23:59 23:59 23:59 Intake Total 2560 / 2560 1320 / 1320 Output Total 650 / 650 500 / 500 Balance 1909 / 1909 820 / 820 General: Awake, Alert, Oriented x 3 HEENT: PERRL, EOMI, Sclera Non Icteric Neck: Supple, Good ROM, No Lymph Node Enlargement Lungs: Clear to auscultation Cardiovascular: Regular Rhythm, Normal S1, Normal S2, No Murmurs, No Rubs, No Gallops Vascular: No Carotid Bruits, Normal Femoral Pulses, Normal Radial Pulses, Normal Dorsalis Pedal Pulse, Normal Posterior Tibial Pulses Abdomen: Bowel Sounds Present, Soft, Non Tender, No HSM, No Organomegaly Extremities: No Cyanosis, No Clubbing, No edema Neurological: No Focal Motor or Sensory Deficit 03/22/19 11:20: WBC 14.0 H, RBC 3.97 L, Hgb 11.2 L, Hct 35.7 L, MCV 89.9, MCH 28.2, MCHC 31.4 L, RDW 17.2 H, RDW Differential 56.9 H, Plt Count 289, MPV 9.5, Immature Gran % (Auto) 0.200, Neut % (Auto) 83.4 H, Lymph % (Auto) 7.1 L, [place] % (Auto) 9.1, Eos % (Auto) 0.1, Baso % (Auto) 0.1, Absolute Neuts (auto) 11.7 H, Total Counted Not Reportable 03/22/19 11:20: PT 15.4 H, INR 1.2, APTT 33.7 03/22/19 11:20: Sodium 132 L, Potassium 4.6, Chloride 96 L, Carbon Dioxide 27.0, Anion Gap 9, BUN 27 H, Creatinine 1.97 H, Est GFR (MDRD) Af Amer 32 L, Est GFR (MDRD) Non-Af 27 L, BUN/Creatinine Ratio 13.7, Glucose 141 H, Calcium 9.1, Total Bilirubin 0.60 03/22/19 11:20: Lactic Acid 2.8 H 03/22/19 11:20: Magnesium 2.0 03/22/19 12:00: Urine Color Yellow, Urine Clarity Sl. Cloudy, Urine pH 6.5, Ur Specific [place] 1.010, Urine Protein 100 H, Urine Glucose (UA) Normal, Urine Ketones Negative, Urine Occult Blood 250 H, Urine Nitrite Positive H, Urine Bilirubin Negative, Urine Urobilinogen Normal, Ur Leukocyte Esterase 500 H, Urine RBC 25-50 SEEN, Urine WBC 25-50 SEEN 03/22/19 16:07: Lactic Acid 2.1 H 03/23/19 05:18: WBC 11.0, RBC 3.42 L, Hgb 9.5 L, Hct 31.0 L, MCV 90.6, MCH 27.8, MCHC 30.6 L, RDW 17.2 H, RDW Differential 55.8 H, Plt Count 262, MPV 9.9, Immature Gran % (Auto) 0.500, Neut % (Auto) 86.6 H, Lymph % (Auto) 6.7 L, [place] % (Auto) 6.0, Eos % (Auto) 0.0, Baso % (Auto) 0.2, Absolute Neuts (auto) 9.6 H, Total Counted Not Reportable 03/23/19 05:18: Sodium 135 L, Potassium 3.8, Chloride 102, Carbon Dioxide 25.0, Anion Gap 8, BUN 31 H, Creatinine 1.83 H, Est GFR (MDRD) Af Amer 35 L, Est GFR (MDRD) Non-Af 29 L, BUN/Creatinine Ratio 16.9, Glucose 156 H, Calcium 8.1 L Rhythm: EKG: ECHO: Stress Test: Cardiac Cath: PCI: CT Surgery: Holter monitor: EPS: PPM: CXR: Chest CT Scan: Assessment/Plan 1. Atrial arrhythmia: The patient had several atrial arrhythmias last evening including sinus tachycardia, ectopic atrial tachycardia, and what appears to be atrial flutter with 2-1 conduction. Attempts were made to a successful followed by IV beta-genaro therapy. Patient has a history of obstructive sleep apnea, moderate left atrial enlargement, normal LV function by echocardiogram in October 2018. Patient is currently in sinus rhythm and her blood pressure has normalized. She has previously been on beta-genaro therapy at baseline. She has never had a heart catheterization, never been on antiarrhythmic such as flecainide, propafenone, or amiodarone per the patient and her sister. Her arrhythmia is most likely result of her acute infectious process, as well as acute inflammatory reaction. Nonetheless, this obviously precipitated hypotension due to poor filling times given her hyperdynamic LV function. I believe the patient would benefit from normalization of her heart rate and blood pressure to assist with finding her urinary tract and skin infections. I recommended discontinuation of her beta-genaro therapy, and switching her to Cardizem CD 120 mg p.o. daily and titrating up from there. Given her atrial arrhythmias, she may benefit more from calcium channel genaro therapy rather than beta-genaro therapy. Despite these efforts, the patient may develop transient atrial arrhythmias given her infectious process. Recommend keeping her potassium above 4.0 and her magnesium above 2.0. I do not believe she requires repeat echo cardiogram, stress test or catheterization at this time. I would recommend recovery from her UTI and skin infection prior to any additional cardiac work-up. I do not believe she requires anticoagulant therapy at this time. 2. Obstructive sleep apnea: Recommend continuing CPAP therapy if already in place. 3. Discussed with patient and her sister, all questions answered. Thank you very much for the opportunity to participate in the cardiac care of your patient. Consultation time took place between 945 and 10:17 AM. Code Visit Inpatient E&M: 39167 Init Hosp L2
[2019-03-23 11:21] LABS: Bedside Glucose 146 mg/dL (70-110)
--- NOTE | 2019-03-23 12:32 | PCM.PROGNOTE ---
<Latonya Ivy - Last Filed: 03/23/19 13:05> Patient Problems: Active and Suspected Problems (Last Updated 03/22/19 @ 13:35 by Luís Collazo DO) Candidal intertrigo (Acute) Atrial arrhythmia (Acute) Subjective: Patient seen and examined. Patient herself denies current complaints. Family at bedside voices concern for frequent admissions due to recurrent UTIs. Patient denies fever, chills. Resting comfortably in bed at this time. - Physical Exam General: Alert, Oriented x3, Cooperative HEENT: Atraumatic, PERRLA, EOMI, Normocephalic Oral: Dry Mucosa Neck: Supple, No JVD, Negative Carotid Bruits Lungs: Clear to auscultation, Diminished Cardiovascular: Regular rate, Regular Rhythm, Normal S1, Normal S2, No murmurs Abdomen: Bowel Sounds Present, Soft, Non Tender, Non-Distended, Obese Extremities: No clubbing, No cyanosis, Capillary Refill Less than 3 Seconds, Edema - Nonpitting bilateral lower extremities Skin: - - Left posterior thigh and sacral pressure ulcers, present on admission. Tianna intertrigo with significant excoriation. Musculoskeletal: No Tenderness to Palpation of Joints or Extremities Neurological: Cranial nerves II-XII grossly intact, Neuro grossly intact Psych/Mental Status: Normal Affect, Appropriate Vital Signs Temp Pulse Resp BP Pulse Ox 100.7 F H 102 H 18 115/52 L 97 03/23/19 09:38 03/23/19 11:16 03/23/19 09:38 03/23/19 09:38 03/23/19 09:38 Oxygen Flow Rate (L/min) 2 Oxygen Delivery Method Nasal Cannula Weight: 337 lb 4.916 oz Body Mass Index (BMI) 52.8 Intake and Output for Last 24 Hours 03/21/19 03/22/19 03/23/19 23:59 23:59 23:59 Intake Total 2560 / 2560 2555 / 2555 Output Total 650 / 650 725 / 725 Balance 191 / 191 1830 / 1830 Microbiology Past 72 Hours 03/22/19 12:00 Urine Culture - Preliminary Urine Catheter - Catheter GNR Poss Pseudomonas sp 03/22/19 10:57 Bacteria Detection (PCR) - Final Blood Culture (Wb) - Other Enterococcus faecalis Blood Culture - Preliminary Enterococcus faecalis Laboratory Tests Past 24 Hrs 03/22/19 03/22/19 03/23/19 11:20 16:07 05:18 WBC 11.0 RBC 3.42 L Hgb 9.5 L Hct 31.0 L MCV 90.6 MCH 27.8 MCHC 30.6 L RDW 17.2 H RDW Differential 55.8 H Plt Count 262 MPV 9.9 Immature Gran % (Auto) 0.500 Neut % (Auto) 86.6 H Lymph % (Auto) 6.7 L Brown % (Auto) 6.0 Eos % (Auto) 0.0 Baso % (Auto) 0.2 Absolute Neuts (auto) 9.6 H Absolute Lymphs (auto) 0.74 L Total Counted Not Reportable Sodium Potassium Chloride Carbon Dioxide Anion Gap BUN Creatinine Estim Creat Clear Calc Est GFR (MDRD) Af Amer Est GFR (MDRD) Non-Af BUN/Creatinine Ratio Glucose Lactic Acid 2.1 H Calcium Magnesium 2.0 03/23/19 05:18 WBC RBC Hgb Hct MCV MCH MCHC RDW RDW Differential Plt Count MPV Immature Gran % (Auto) Neut % (Auto) Lymph % (Auto) Brown % (Auto) Eos % (Auto) Baso % (Auto) Absolute Neuts (auto) Absolute Lymphs (auto) Total Counted Sodium 135 L Potassium 3.8 Chloride 102 Carbon Dioxide 25.0 Anion Gap 8 BUN 31 H Creatinine 1.83 H Estim Creat Clear Calc 27.02 Est GFR (MDRD) Af Amer 35 L Est GFR (MDRD) Non-Af 29 L BUN/Creatinine Ratio 16.9 Glucose 156 H Lactic Acid Calcium 8.1 L Magnesium POC Glucose 03/23/19 03/23/19 03/22/19 11:07 06:47 22:10 POC Glucose 146 H 131 H 169 H 03/22/19 15:51 POC Glucose 146 H Medical Necessity - Tobacco Use Smoking Status: Never smoker Assessment/Plan All Active Problems (Last Updated 03/22/19 @ 13:35 by Luís Collazo DO) UTI (urinary tract infection) (Acute) Sepsis (Acute) MICHAELLE (acute kidney injury) (Acute) Candidal intertrigo (Acute) Atrial arrhythmia (Acute) Suprapubic catheter dysfunction (Resolved) 1. Sepsis secondary to acute suprapubic catheter associated complicated GNR/Pseudomonas UTI and enterococcus faecalis bacteremia- Patient has a history of multidrug-resistant cultures. Continue IV vancomycin and IV Zosyn. Consult ID. Consult Dr. Zavala given leaking around catheter site. Repeat blood cultures ordered. Final urine and blood cultures pending. 2. SVT/atrial arrhythmia-suspect secondary to #1. Patient received adenosine overnight with improvement in heart rate. Cardiology recommending discontinuing beta-blockers and initiating Cardizem CD 120 mg daily. Otherwise, no further cardiac work-up. 3. Severe abdominal wall pannus excoriation with candidal intertrigo/left posterior thigh and sacral pressure ulcers-continue nystatin powder, absorbent dressing to reduce moisture. gas station operator consult. Every 2 hour position changes. 4. MICHAELLE on Chronic kidney disease stage III-improving, continue IV fluids, trend BMP. 5. Mild chronic hyponatremia-stable. 6. Chronic diastolic CHF-Echo October 2018 with EF 75%, stage I diastolic dysfunction. 7. Hypertension-continue metoprolol, Lisinopril. Lasix regimen on hold given MICHAELLE. 8. Hyperlipidemia-continue statin. 9. Type 2 diabetes mellitus-hold oral regimen. Accu-Cheks AC at bedtime with sliding scale insulin. 10. VITA-continue BiPAP regimen. 11. GERD-continue Protonix/Zantac. 12. Depression-continue home Cymbalta, Effexor regimen. 13. Super morbid obesity-encouraged diet lifestyle modifications. 14. Chronic normocytic anemia/anemia of chronic disease-at baseline. 15. Debility-Patient lives at home, unclear how mobile patient is. Patient with pressure ulcers as noted above. PT/OT. DVT prophylaxis-Lovenox subcu This patient was seen by DEDRICK Simmons under the supervision of Dr. Collazo. <Luís Collazo - Last Filed: 03/23/19 14:25> Subjective: Tachycardia last night. Appeared to be SVT and received adenosine and then converted to a sinus rhythm. Complains of swelling in hands. - Physical Exam General: Alert, Cooperative, - - listless. afebrile. HEENT: Atraumatic, Normocephalic Neck: No Nodes, Thyroid Normal Size and Texture Lungs: Clear to auscultation, No rhonchi, No wheeze, Diminished Cardiovascular: Regular rate, Regular Rhythm, Normal S1, Normal S2, No murmurs Abdomen: Bowel Sounds Present, Soft, Non Tender, Non-Distended, Obese Extremities: No clubbing, No cyanosis, Edema Skin: - Musculoskeletal: No Tenderness to Palpation of Joints or Extremities Neurological: Cranial nerves II-XII grossly intact, Neuro grossly intact Psych/Mental Status: Normal Affect, Appropriate Vital Signs Temp Pulse Resp BP Pulse Ox 38.2 C H 102 H 18 115/52 L 97 03/23/19 09:38 03/23/19 11:16 03/23/19 09:38 03/23/19 09:38 03/23/19 09:38 Oxygen Flow Rate (L/min) 2 Oxygen Delivery Method Nasal Cannula Weight: 153 kg Body Mass Index (BMI) 52.8 Intake and Output for Last 24 Hours 03/21/19 03/22/19 03/23/19 23:59 23:59 23:59 Intake Total 2560 / 2560 2555 / 2555 Output Total 650 / 650 725 / 725 Balance 1910 / 1910 1830 / 1830 Microbiology Past 72 Hours 03/22/19 12:00 Urine Culture - Preliminary Urine Catheter - Catheter GNR Poss Pseudomonas sp 03/22/19 10:57 Bacteria Detection (PCR) - Final Blood Culture (Wb) - Other Enterococcus faecalis Blood Culture - Preliminary Enterococcus faecalis Laboratory Tests Past 24 Hrs 03/22/19 03/22/19 03/23/19 11:20 16:07 05:18 WBC 11.0 RBC 3.42 L Hgb 9.5 L Hct 31.0 L MCV 90.6 MCH 27.8 MCHC 30.6 L RDW 17.2 H RDW Differential 55.8 H Plt Count 262 MPV 9.9 Immature Gran % (Auto) 0.500 Neut % (Auto) 86.6 H Lymph % (Auto) 6.7 L Brown % (Auto) 6.0 Eos % (Auto) 0.0 Baso % (Auto) 0.2 Absolute Neuts (auto) 9.6 H Absolute Lymphs (auto) 0.74 L Total Counted Not Reportable Sodium Potassium Chloride Carbon Dioxide Anion Gap BUN Creatinine Estim Creat Clear Calc Est GFR (MDRD) Af Amer Est GFR (MDRD) Non-Af BUN/Creatinine Ratio Glucose Lactic Acid 2.1 H Calcium Magnesium 2.0 03/23/19 05:18 WBC RBC Hgb Hct MCV MCH MCHC RDW RDW Differential Plt Count MPV Immature Gran % (Auto) Neut % (Auto) Lymph % (Auto) Brown % (Auto) Eos % (Auto) Baso % (Auto) Absolute Neuts (auto) Absolute Lymphs (auto) Total Counted Sodium 135 L Potassium 3.8 Chloride 102 Carbon Dioxide 25.0 Anion Gap 8 BUN 31 H Creatinine 1.83 H Estim Creat Clear Calc 27.02 Est GFR (MDRD) Af Amer 35 L Est GFR (MDRD) Non-Af 29 L BUN/Creatinine Ratio 16.9 Glucose 156 H Lactic Acid Calcium 8.1 L Magnesium POC Glucose 03/23/19 03/23/19 03/22/19 11:07 06:47 22:10 POC Glucose 146 H 131 H 169 H 03/22/19 15:51 POC Glucose 146 H Assessment/Plan Patient seen and examined independently. Data reviewed. I agree with the above note by the nurse practitioner. 1. Severe Sepsis Present on arrival (not simply sepsis as was originally documented) Secondary to UTI + bacteremia supportive management 2. UTI Catheter associated as patient has a chronic suprapubic catheter after discussing with the patient, patient is Okay with having the staff in the emergency room changed over. Patient expressed that due to her anatomy, they have to purchase at an angle from the left going medially. Discussed with Dr. Costello who will revise the emergency room staff about replacement in the emergency room. Will continue with Zosyn but anticipate that de-escalation based on the final culture results Culture growing out Pseudomonas Sister was inquiring about suppressive medications after she was done with abx. Patient was already on Macrobid. May consider methenamine. 3. Bacteremia 1 of 2 + enterococcus repeat BCx today. may be source, though it is different organism from UTI consult ID. Informed will not be seen until 03/25 4. MICHAELLE improving. Baseline creatinine appears to be around 1.3, today is 1.97. We will hold patient's furosemide as well as metformin. Give IV fluids and reevaluate in the morning 5. Tianna intertrigo I do not appreciate any cellulitis but the rash underneath her pannus seems to be more consistent with Tianna intertrigo Nystatin and continue to keep the area dry as best as possible She does have a skin tear on the left side, so we will have wound care come evaluate her. 5. Diabetes mellitus type 2: Metformin will be held Moderate dose sliding scale for the meantime 6. VTE prophylaxis: Lovenox. 7. Hand edema: not impressive on exam Reassurance provided. Explained that is likely due to IVF, infection/inflammation and protein malnutrition Greater than 35 minutes of which greater than 50% of the time was counseling the patient and her sister on treatment and studies. Code Visit Inpatient E&M: 72228 Subs Hosp L3
--- NOTE | 2019-03-23 12:51 | PN_ITS ---
<Latonya Ivy - Last Filed: 03/23/19 13:05> Patient Problems: Active and Suspected Problems (Last Updated 03/22/19 @ 13:35 by Luís Collazo DO) Candidal intertrigo (Acute) Atrial arrhythmia (Acute) Subjective: Patient seen and examined. Patient herself denies current complaints. Family at bedside voices concern for frequent admissions due to recurrent UTIs. Patient denies fever, chills. Resting comfortably in bed at this time. - Physical Exam General: Alert, Oriented x3, Cooperative HEENT: Atraumatic, PERRLA, EOMI, Normocephalic Oral: Dry Mucosa Neck: Supple, No JVD, Negative Carotid Bruits Lungs: Clear to auscultation, Diminished Cardiovascular: Regular rate, Regular Rhythm, Normal S1, Normal S2, No murmurs Abdomen: Bowel Sounds Present, Soft, Non Tender, Non-Distended, Obese Extremities: No clubbing, No cyanosis, Capillary Refill Less than 3 Seconds, Edema - Nonpitting bilateral lower extremities Skin: - - Left posterior thigh and sacral pressure ulcers, present on admission. Tianna intertrigo with significant excoriation. Musculoskeletal: No Tenderness to Palpation of Joints or Extremities Neurological: Cranial nerves II-XII grossly intact, Neuro grossly intact Psych/Mental Status: Normal Affect, Appropriate Vital Signs Temp Pulse Resp BP Pulse Ox 100.7 F H 102 H 18 115/52 L 97 03/23/19 09:38 03/23/19 11:16 03/23/19 09:38 03/23/19 09:38 03/23/19 09:38 Oxygen Flow Rate (L/min) 2 Oxygen Delivery Method Nasal Cannula Weight: 337 lb 4.916 oz Body Mass Index (BMI) 52.8 Intake and Output for Last 24 Hours 03/21/19 03/22/19 03/23/19 23:59 23:59 23:59 Intake Total 2560 / 2560 2555 / 2555 Output Total 650 / 650 725 / 725 Balance 191 / 191 1830 / 1830 Microbiology Past 72 Hours 03/22/19 12:00 Urine Culture - Preliminary Urine Catheter - Catheter GNR Poss Pseudomonas sp 03/22/19 10:57 Bacteria Detection (PCR) - Final Blood Culture (Wb) - Other Enterococcus faecalis Blood Culture - Preliminary Enterococcus faecalis Laboratory Tests Past 24 Hrs 03/22/19 03/22/19 03/23/19 11:20 16:07 05:18 WBC 11.0 RBC 3.42 L Hgb 9.5 L Hct 31.0 L MCV 90.6 MCH 27.8 MCHC 30.6 L RDW 17.2 H RDW Differential 55.8 H Plt Count 262 MPV 9.9 Immature Gran % (Auto) 0.500 Neut % (Auto) 86.6 H Lymph % (Auto) 6.7 L [place] % (Auto) 6.0 Eos % (Auto) 0.0 Baso % (Auto) 0.2 Absolute Neuts (auto) 9.6 H Absolute Lymphs (auto) 0.74 L Total Counted Not Reportable Sodium Potassium Chloride Carbon Dioxide Anion Gap BUN Creatinine Estim Creat Clear Calc Est GFR (MDRD) Af Amer Est GFR (MDRD) Non-Af BUN/Creatinine Ratio Glucose Lactic Acid 2.1 H Calcium Magnesium 2.0 03/23/19 05:18 WBC RBC Hgb Hct MCV MCH MCHC RDW RDW Differential Plt Count MPV Immature Gran % (Auto) Neut % (Auto) Lymph % (Auto) [place] % (Auto) Eos % (Auto) Baso % (Auto) Absolute Neuts (auto) Absolute Lymphs (auto) Total Counted Sodium 135 L Potassium 3.8 Chloride 102 Carbon Dioxide 25.0 Anion Gap 8 BUN 31 H Creatinine 1.83 H Estim Creat Clear Calc 27.02 Est GFR (MDRD) Af Amer 35 L Est GFR (MDRD) Non-Af 29 L BUN/Creatinine Ratio 16.9 Glucose 156 H Lactic Acid Calcium 8.1 L Magnesium POC Glucose 03/23/19 03/23/19 03/22/19 11:07 06:47 22:10 POC Glucose 146 H 131 H 169 H 03/22/19 15:51 POC Glucose 146 H Medical Necessity - Tobacco Use Smoking Status: Never smoker Assessment/Plan All Active Problems (Last Updated 03/22/19 @ 13:35 by Luís Collazo DO) UTI (urinary tract infection) (Acute) Sepsis (Acute) MICHAELLE (acute kidney injury) (Acute) Candidal intertrigo (Acute) Atrial arrhythmia (Acute) Suprapubic catheter dysfunction (Resolved) 1. Sepsis secondary to acute suprapubic catheter associated complicated GNR/Pseudomonas UTI and enterococcus faecalis bacteremia- Patient has a history of multidrug-resistant cultures. Continue IV vancomycin and IV Zosyn. Consult ID. Consult Dr. Zavala given leaking around catheter site. Repeat blood cultures ordered. Final urine and blood cultures pending. 2. SVT/atrial arrhythmia-suspect secondary to #1. Patient received adenosine overnight with improvement in heart rate. Cardiology recommending discontinuing beta-blockers and initiating Cardizem CD 120 mg daily. Otherwise, no further cardiac work-up. 3. Severe abdominal wall pannus excoriation with candidal intertrigo/left posterior thigh and sacral pressure ulcers-continue nystatin powder, absorbent dressing to reduce moisture. smokehouse operator consult. Every 2 hour position changes. 4. MICHAELLE on Chronic kidney disease stage III-improving, continue IV fluids, trend BMP. 5. Mild chronic hyponatremia-stable. 6. Chronic diastolic CHF-Echo October 2018 with EF 75%, stage I diastolic dysfunction. 7. Hypertension-continue metoprolol, Lisinopril. Lasix regimen on hold given MICHAELLE. 8. Hyperlipidemia-continue statin. 9. Type 2 diabetes mellitus-hold oral regimen. Accu-Cheks AC at bedtime with sliding scale insulin. 10. VITA-continue BiPAP regimen. 11. GERD-continue Protonix/Zantac. 12. Depression-continue home Cymbalta, Effexor regimen. 13. Super morbid obesity-encouraged diet lifestyle modifications. 14. Chronic normocytic anemia/anemia of chronic disease-at baseline. 15. Debility-Patient lives at home, unclear how mobile patient is. Patient with pressure ulcers as noted above. PT/OT. DVT prophylaxis-Lovenox subcu This patient was seen by DEDRICK Simmons under the supervision of Dr. Collazo. <Luís Collazo - Last Filed: 03/23/19 14:25> Subjective: Tachycardia last night. Appeared to be SVT and received adenosine and then converted to a sinus rhythm. Complains of swelling in hands. - Physical Exam General: Alert, Cooperative, - - listless. afebrile. HEENT: Atraumatic, Normocephalic Neck: No Nodes, Thyroid Normal Size and Texture Lungs: Clear to auscultation, No rhonchi, No wheeze, Diminished Cardiovascular: Regular rate, Regular Rhythm, Normal S1, Normal S2, No murmurs Abdomen: Bowel Sounds Present, Soft, Non Tender, Non-Distended, Obese Extremities: No clubbing, No cyanosis, Edema Skin: - Musculoskeletal: No Tenderness to Palpation of Joints or Extremities Neurological: Cranial nerves II-XII grossly intact, Neuro grossly intact Psych/Mental Status: Normal Affect, Appropriate Vital Signs Temp Pulse Resp BP Pulse Ox 38.2 C H 102 H 18 115/52 L 97 03/23/19 09:38 03/23/19 11:16 03/23/19 09:38 03/23/19 09:38 03/23/19 09:38 Oxygen Flow Rate (L/min) 2 Oxygen Delivery Method Nasal Cannula Weight: 153 kg Body Mass Index (BMI) 52.8 Intake and Output for Last 24 Hours 03/21/19 03/22/19 03/23/19 23:59 23:59 23:59 Intake Total 2560 / 2560 2555 / 2555 Output Total 650 / 650 725 / 725 Balance 1910 / 1910 1830 / 1830 Microbiology Past 72 Hours 03/22/19 12:00 Urine Culture - Preliminary Urine Catheter - Catheter GNR Poss Pseudomonas sp 03/22/19 10:57 Bacteria Detection (PCR) - Final Blood Culture (Wb) - Other Enterococcus faecalis Blood Culture - Preliminary Enterococcus faecalis Laboratory Tests Past 24 Hrs 03/22/19 03/22/19 03/23/19 11:20 16:07 05:18 WBC 11.0 RBC 3.42 L Hgb 9.5 L Hct 31.0 L MCV 90.6 MCH 27.8 MCHC 30.6 L RDW 17.2 H RDW Differential 55.8 H Plt Count 262 MPV 9.9 Immature Gran % (Auto) 0.500 Neut % (Auto) 86.6 H Lymph % (Auto) 6.7 L [place] % (Auto) 6.0 Eos % (Auto) 0.0 Baso % (Auto) 0.2 Absolute Neuts (auto) 9.6 H Absolute Lymphs (auto) 0.74 L Total Counted Not Reportable Sodium Potassium Chloride Carbon Dioxide Anion Gap BUN Creatinine Estim Creat Clear Calc Est GFR (MDRD) Af Amer Est GFR (MDRD) Non-Af BUN/Creatinine Ratio Glucose Lactic Acid 2.1 H Calcium Magnesium 2.0 03/23/19 05:18 WBC RBC Hgb Hct MCV MCH MCHC RDW RDW Differential Plt Count MPV Immature Gran % (Auto) Neut % (Auto) Lymph % (Auto) [place] % (Auto) Eos % (Auto) Baso % (Auto) Absolute Neuts (auto) Absolute Lymphs (auto) Total Counted Sodium 135 L Potassium 3.8 Chloride 102 Carbon Dioxide 25.0 Anion Gap 8 BUN 31 H Creatinine 1.83 H Estim Creat Clear Calc 27.02 Est GFR (MDRD) Af Amer 35 L Est GFR (MDRD) Non-Af 29 L BUN/Creatinine Ratio 16.9 Glucose 156 H Lactic Acid Calcium 8.1 L Magnesium POC Glucose 03/23/19 03/23/19 03/22/19 11:07 06:47 22:10 POC Glucose 146 H 131 H 169 H 03/22/19 15:51 POC Glucose 146 H Assessment/Plan Patient seen and examined independently. Data reviewed. I agree with the above note by the nurse practitioner. 1. Severe Sepsis * Present on arrival (not simply sepsis as was originally documented) * Secondary to UTI + bacteremia * supportive management 2. UTI * Catheter associated as patient has a chronic suprapubic catheter after discussing with the patient, patient is * Okay with having the staff in the emergency room changed over. Patient expre ssed that due to her anatomy, they have to purchase at an angle from the left going medially. Discussed with Dr. Costello who will revise the emergency room staff about replacement in the emergency room. * Will continue with Zosyn but anticipate that de-escalation based on the final culture results * Culture growing out Pseudomonas * Sister was inquiring about suppressive medications after she was done with abx. Patient was already on Macrobid. May consider methenamine. 3. Bacteremia * 1 of 2 + enterococcus * repeat BCx today. * may be source, though it is different organism from UTI * consult ID. Informed will not be seen until 03/25 4. MICHAELLE * improving. * Baseline creatinine appears to be around 1.3, today is 1.97. We will hold patient's furosemide as well as metformin. * Give IV fluids and reevaluate in the morning 5. Tianna intertrigo * I do not appreciate any cellulitis but the rash underneath her pannus seems to be more consistent with Tianna intertrigo * Nystatin and continue to keep the area dry as best as possible * She does have a skin tear on the left side, so we will have wound care come evaluate her. 5. Diabetes mellitus type 2: * Metformin will be held * Moderate dose sliding scale for the meantime 6. VTE prophylaxis: Lovenox. 7. Hand edema: * not impressive on exam * Reassurance provided. Explained that is likely due to IVF, infection/inflammation and protein malnutrition Greater than 35 minutes of which greater than 50% of the time was counseling the patient and her sister on treatment and studies. Code Visit Inpatient E&M: 61838 Subs Hosp L3
--- NOTE | 2019-03-23 12:54 | CM.UR ---
RN CM Assessment Presentation: Tachycardia, UTI Intro role of CM and purpose of RN CM assessment to patient and her sister in room. Pt is alert, oriented and able to participate in assessment. Demographics, PCP and Pharmacy verified. Pt states she lives @ home, has shuttle inspector who assists her. PCP: Dr. Chakraborty Specialists: [facility] Preferred Pharmacy: [facility] in [place], previously [facility] Insurance:[facility] Prescription Benefit: yes LNOK: Sister, Esperanza Ribeiro Living Arrangements: mobile home, ramp into home. Pt has Caregiver Xiomara who works wrapping checker, but helps pt get up in am and dress, shower and does laundry. Pt states she folds her own clothes and puts away and she cooks her own meals. Pt uses electric WC in home as she can't stand long on my feet. She also has a caregiver Sharonda, who comes 3 saturdays a month. Transportation: pt's caregivers or sister assist with transportation. DME: Hospital bed w/trapeze & side rails, motorized WC, rolling shower chair, grab bars, Sit to Stand jensen, O2 2L @ bedtime and Bipap with sleep. HHC: [facility] currently. Pt is agreeable to have lorne with [facility] at discharge. SNF: [facility] in past. Pt states she would would return to [facility], but NOT to [facility]. Advance Directives: Has both living will and DPOA on file. Sister Esperanza Ribeiro is DPOA. Patient DC goals: prefers to return home on discharge. DC PLAN: anticipate home with [facility]. If SNF needed, pt is agreeable to discuss options. Wishes she could get more help at home however she makes too much money to have it but is broke from paying caregivers. Jono Cowart RN, [facility].
--- NOTE | 2019-03-23 14:03 | CASEMGMT ---
LW and General POA form on chart. The General POA form does include a provision that states, To take charge of my person and to provide and/or authorize and arrange for others to provide medical and/or assisted care of every kind and nature for me. CLIFFORD Beasley
[2019-03-23] MEDS: dilTIAZem CD 120 MG Capsule PO (16:31)
[2019-03-23] MEDS: Glucerna Shake 120 ML LIQUID PO ×2 (16:59→22:43)
[2019-03-23 17:00] LABS: Bedside Glucose 101 mg/dL (70-110)
[2019-03-23] MEDS: levETIRAcetam 500 MG Tablet PO (22:43)
[2019-03-23] MEDS: Pravastatin 20 MG Tablet PO (22:44)
[2019-03-23 23:06] LABS: Bedside Glucose 94 mg/dL (70-110)
[2019-03-24] VITALS (11 sets, daily range): BP systolic 123–131; BP diastolic 42–61; PULSE 92–111; RESP 17–18; TEMP 36.9–38.2; O2SAT 96–98
[2019-03-24] MEDS: DiphenhydrAMINE 25 MG Capsule PO (00:27)
[2019-03-24] MEDS: 0.9% Normal Saline 1,000 ML 125 ML IV ×3 (00:41→19:52)
[2019-03-24] MEDS: Acetaminophen 325 MG Tablet 650 MG PO (05:16)
[2019-03-24] MEDS: Baclofen 10 MG Tablet PO ×3 (05:16→21:55)
[2019-03-24 05:53] LABS: Hematocrit 27.5 % (37-47); Hemoglobin 8.4 g/dl (12.0-15.0); Mean Corp Hgb Conc 30.5 g/gl (32-36); Mean Corpuscular Hgb 27.7 pg (27.0-32.0); Mean Corpuscular Volume 90.8 fL (81-99); Platelet Count 218 K/mm3 (150-450); RBC Distribution Width CV 16.9 % (11.6-14.6); RBC Distribution Width SD 54.6 fl (35.1-43.9); Red Blood Count 3.03 M/mm3 (4.2-5.4); White Blood Count 6.4 K/mm3 (4.4-11.0)
[2019-03-24 05:58] LABS: Scan Indicated on CBC? Y/N NO
[2019-03-24 05:59] LABS: Anion Gap 7 (5-15); BUN 30 mg/dL (7-18); Calcium,Total 7.7 mg/dL (8.5-10.1); Chloride 106 mmol/L (98-107); EST Glomerular Filtration Rate 36 mL/min (>60); Est Glom Filt Rate - Afr Amer 44 mL/min (>60); Estimated Creatinine Clearance 32.97 ml/min; Glucose 99 mg/dL (74-106); Potassium 3.5 mmol/L (3.5-5.1); Sodium Level 137 mmol/L (136-145)
[2019-03-24 06:56] LABS: Bedside Glucose 99 mg/dL (70-110)
--- NOTE | 2019-03-24 10:21 | PN.CARD_ITS ---
Subjectve: Pt doing well, no 24 hr events. Tele showed NSR with occ SVT, PAC. Objective: Vital Signs Temp Pulse Resp BP Pulse Ox 100.7 F H 94 18 130/56 H 96 03/24/19 04:20 03/24/19 07:17 03/24/19 04:20 03/24/19 04:20 03/24/19 08:15 Oxygen Flow Rate (L/min) 2 Oxygen Delivery Method Nasal Cannula Weight: 337 lb 4.916 oz Body Mass Index (BMI) 52.8 Intake and Output for Last 24 Hours 03/22/19 03/23/19 03/24/19 23:59 23:59 23:59 Intake Total 2560 / 2560 4740 / 4740 1402 / 1402 Output Total 650 / 650 1376 / 1376 200 / 200 Balance 1910 / 1910 3364 / 3364 1202 / 1202 General: Awake, Alert, Oriented x 3 HEENT: PERRL, EOMI, Sclera Non Icteric Neck: Supple, Good ROM, No Lymph Node Enlargement Lungs: Clear to auscultation Cardiovascular: Regular Rhythm, Normal S1, Normal S2, No Murmurs, No Rubs, No Gallops Vascular: No Carotid Bruits, Normal Femoral Pulses, Normal Radial Pulses, Normal Dorsalis Pedal Pulse, Normal Posterior Tibial Pulses Abdomen: Bowel Sounds Present, Soft, Non Tender, No HSM, No Organomegaly Extremities: No Cyanosis, No Clubbing, No edema Neurological: No Focal Motor or Sensory Deficit 03/24/19 05:00: WBC 6.4, RBC 3.03 L, Hgb 8.4 L, Hct 27.5 L, MCV 90.8, MCH 27.7, MCHC 30.5 L, RDW 16.9 H, RDW Differential 54.6 H, Plt Count 218, MPV 10.0 03/24/19 05:00: Sodium 137, Potassium 3.5, Chloride 106, Carbon Dioxide 24.0, Anion Gap 7, BUN 30 H, Creatinine 1.50 H, Est GFR (MDRD) Af Amer 44 L, Est GFR (MDRD) Non-Af 36 L, BUN/Creatinine Ratio 20.0, Glucose 99, Calcium 7.7 L Rhythm: EKG: ECHO: Stress Test: Cardiac Cath: PCI: CT Surgery: Holter monitor: EPS: PPM: CXR: Chest CT Scan: Medical Necessity - Tobacco Use Smoking Status: Never smoker Assessment/Plan 1. Atrial arrhythmia: The patient had several atrial arrhythmias on the evening of her initial admission including sinus tachycardia, ectopic atrial tachycardia, and what appears to be atrial flutter with 2-1 conduction. Attempts were made to a successful followed by IV beta-roopa therapy. Patient has a history of obstructive sleep apnea, moderate left atrial enlargement, normal LV function by echocardiogram in October 2018. Patient is currently in sinus rhythm and her blood pressure has normalized. Last evening she had normal sinus rhythm with rare SVT which was self terminating. She has previously been on beta-roopa therapy at baseline. She has never had a heart catheterization, never been on antiarrhythmic such as flecainide, propafenone, or amiodarone per the patient and her sister. Her arrhythmia is most likely result of her acute infectious process, as well as acute inflammatory reaction. Nonetheless, this obviously precipitated hypotension due to poor filling times given her hyperdynamic LV function. I believe the patient would benefit from normalization of her heart rate and blood pressure to assist with finding her urinary tract and skin infections. I recommended discontinuation of her beta-roopa therapy, and switching her to Cardizem CD 120 mg p.o. daily and titrating up from there. Given her atrial arrhythmias, she may benefit more from calcium channel roopa therapy rather than beta-roopa therapy. Despite these efforts, the patient may develop transient atrial arrhythmias given her infectious process. Recommend keeping her potassium above 4.0 and her magnesium above 2.0. Will start on potassium 10 mEq p.o. daily starting today. I do not believe she requires repeat echo cardiogram, stress test or catheterization at this time. I would recommend recovery from her UTI and skin infection prior to any additional cardiac work-up. I do not believe she r equires anticoagulant therapy at this time. Patient may benefit from a single unit of PRBCs to increase her volume status, and avoid recurrent episodes of hypotension and arrhythmias. 2. Obstructive sleep apnea: Recommend continuing CPAP therapy if already in place. 3. Discussed with patient and her sister, all questions answered. Will sign off. Please call with any questions. Code Visit Inpatient E&M: 42016 Subs Hosp L2
[2019-03-24] MEDS: Nystatin Powder 15gm Bottle 1 APPLIC TOPICAL (10:45)
[2019-03-24] MEDS: Glucerna Shake 120 ML LIQUID PO ×4 (10:48→21:51)
[2019-03-24] MEDS: Venlafaxine XR 150 MG Capsule PO ×2 (10:48→21:55)
[2019-03-24] MEDS: Multivitamins,Ther W-Minerals Tablet 1 TABLET PO ×4 (10:48→21:55)
[2019-03-24] MEDS: dilTIAZem CD 120 MG Capsule PO (10:48)
[2019-03-24] MEDS: Pantoprazole Sodium 40 MG Tablet PO (10:49)
[2019-03-24] MEDS: Cyanocobalamin 500 MCG Tablet 1000 MCG PO (10:49)
[2019-03-24] MEDS: Vitamin E 400 UNITS Capsule PO ×2 (10:49→21:55)
[2019-03-24] MEDS: Gabapentin 600 MG Tablet PO ×2 (10:49→21:55)
[2019-03-24] MEDS: Famotidine 20 MG Tablet PO (10:49)
[2019-03-24] MEDS: Tolterodine Tartrate 4 MG CAP.SA PO (10:50)
[2019-03-24] MEDS: Lisinopril 10 MG Tablet PO (10:50)
[2019-03-24] MEDS: Enoxaparin 30 MG/0.3 ML Syringe SC (10:50)
[2019-03-24] MEDS: DULoxetine Hcl 30 MG Capsule PO (10:57)
--- NOTE | 2019-03-24 11:09 | PCM.PROGNOTE ---
<Latonya Ivy - Last Filed: 03/24/19 11:27> Patient Problems: Active and Suspected Problems (Last Updated 03/22/19 @ 13:35 by Luís Collazo DO) Candidal intertrigo (Acute) Atrial arrhythmia (Acute) Subjective: Patient seen and examined. More alert today. Overall feels improved. Continues to have intermittent fever. No other complaints. - Physical Exam General: Alert, Oriented x3, Cooperative HEENT: Atraumatic, PERRLA, EOMI, Normocephalic Neck: Supple, No JVD, Negative Carotid Bruits Lungs: Clear to auscultation, Diminished Cardiovascular: Regular rate, Regular Rhythm, Normal S1, Normal S2, No murmurs Abdomen: Bowel Sounds Present, Soft, Non Tender, Non-Distended, Obese, - - Suprapubic catheter in place Extremities: No clubbing, No cyanosis, Capillary Refill Less than 3 Seconds, Edema - Nonpitting bilateral lower extremities Skin: - - Left posterior thigh and sacral pressure ulcers, present on admission. Tianna intertrigo with significant excoriation. Musculoskeletal: No Tenderness to Palpation of Joints or Extremities Neurological: Cranial nerves II-XII grossly intact, Neuro grossly intact Psych/Mental Status: Normal Affect, Appropriate Vital Signs Temp Pulse Resp BP Pulse Ox 98.5 F 95 17 124/53 H 98 03/24/19 10:39 03/24/19 10:39 03/24/19 10:39 03/24/19 10:39 03/24/19 10:39 Oxygen Flow Rate (L/min) 2 Oxygen Delivery Method Nasal Cannula Weight: 337 lb 4.916 oz Body Mass Index (BMI) 52.8 Intake and Output for Last 24 Hours 03/22/19 03/23/19 03/24/19 23:59 23:59 23:59 Intake Total 2560 / 2560 4740 / 4740 1402 / 1402 Output Total 650 / 650 1376 / 1376 200 / 200 Balance 1910 / 1910 3364 / 3364 1202 / 1202 Microbiology Past 72 Hours 03/22/19 12:00 Urine Culture - Preliminary Urine Catheter - Catheter Pseudomonas aeroginosa 03/22/19 10:57 Bacteria Detection (PCR) - Final Blood Culture (Wb) - Other Enterococcus faecalis Blood Culture - Preliminary Enterococcus faecalis Laboratory Tests Past 24 Hrs 03/24/19 03/24/19 05:00 05:00 WBC 6.4 RBC 3.03 L Hgb 8.4 L Hct 27.5 L MCV 90.8 MCH 27.7 MCHC 30.5 L RDW 16.9 H RDW Differential 54.6 H Plt Count 218 MPV 10.0 Sodium 137 Potassium 3.5 Chloride 106 Carbon Dioxide 24.0 Anion Gap 7 BUN 30 H Creatinine 1.50 H Estim Creat Clear Calc 32.97 Est GFR (MDRD) Af Amer 44 L Est GFR (MDRD) Non-Af 36 L BUN/Creatinine Ratio 20.0 Glucose 99 Calcium 7.7 L POC Glucose 03/24/19 03/23/19 03/23/19 06:31 22:28 16:26 POC Glucose 99 94 101 03/23/19 11:07 POC Glucose 146 H Medical Necessity - Tobacco Use Smoking Status: Never smoker Assessment/Plan All Active Problems (Last Updated 03/22/19 @ 13:35 by Luís Collazo DO) UTI (urinary tract infection) (Acute) Sepsis (Acute) MICHAELLE (acute kidney injury) (Acute) Candidal intertrigo (Acute) Atrial arrhythmia (Acute) Suprapubic catheter dysfunction (Resolved) 1. Sepsis secondary to acute suprapubic catheter associated complicated Pseudomonas UTI and enterococcus faecalis bacteremia- Patient has a history of multidrug-resistant cultures. Continue IV vancomycin and IV meropenem given sensitivities. Consult ID. Consult Dr. Zavala given leaking around catheter site. Repeat blood cultures pending. 2. SVT/atrial arrhythmia-suspect secondary to #1. Patient previously received adenosine X1 with improvement in heart rate. Cardiology recommending discontinuing beta-blockers , continue Cardizem CD 120 mg daily. Otherwise, no further cardiac work-up. 3. Severe abdominal wall pannus excoriation with candidal intertrigo/left posterior thigh and sacral pressure ulcers-continue nystatin powder, absorbent dressing to reduce moisture. orthopaedic technologist consult. Every 2 hour position changes. 4. MICHAELLE on Chronic kidney disease stage III-improving, continue IV fluids, trend BMP. 5. Mild chronic hyponatremia-stable. 6. Chronic diastolic CHF-Echo October 2018 with EF 75%, stage I diastolic dysfunction. 7. Hypertension-continue metoprolol, Lisinopril. Lasix regimen on hold given MICHAELLE. 8. Hyperlipidemia-continue statin. 9. Type 2 diabetes mellitus-hold oral regimen. Accu-Cheks AC at bedtime with sliding scale insulin. 10. VITA-continue BiPAP regimen. 11. GERD-continue Protonix/Zantac. 12. Depression-continue home Cymbalta, Effexor regimen. 13. Super morbid obesity-encouraged diet lifestyle modifications. 14. Chronic normocytic anemia/anemia of chronic disease-at baseline. 15. Debility-Patient lives at home, unclear how mobile patient is. Patient with pressure ulcers as noted above. PT/OT. DVT prophylaxis-Lovenox subcu This patient was seen by DEDRICK Simmons under the supervision of Dr. Collazo. <Luís Collazo - Last Filed: 03/24/19 11:59> Subjective: Feels better. - Physical Exam General: Alert, Cooperative, - - much more alert. joking. HEENT: Atraumatic, Normocephalic Neck: Thyroid Normal Size and Texture Lungs: Clear to auscultation, Diminished Cardiovascular: Regular rate, Regular Rhythm, Normal S1, Normal S2, No murmurs Abdomen: Bowel Sounds Present, Soft, Non Tender, Non-Distended, Obese Extremities: No clubbing, No cyanosis Skin: - Musculoskeletal: No Tenderness to Palpation of Joints or Extremities Neurological: Cranial nerves II-XII grossly intact, Neuro grossly intact Psych/Mental Status: Normal Affect, Appropriate Vital Signs Temp Pulse Resp BP Pulse Ox 36.9 C 95 17 124/53 H 98 03/24/19 10:39 03/24/19 10:39 03/24/19 10:39 03/24/19 10:39 03/24/19 10:39 Oxygen Flow Rate (L/min) 2 Oxygen Delivery Method Nasal Cannula Weight: 153 kg Body Mass Index (BMI) 52.8 Intake and Output for Last 24 Hours 03/22/19 03/23/19 03/24/19 23:59 23:59 23:59 Intake Total 2560 / 2560 4740 / 4740 2502 / 2502 Output Total 650 / 650 1376 / 1376 700 / 700 Balance 1910 / 1910 3364 / 3364 1802 / 1802 Microbiology Past 72 Hours 03/22/19 12:00 Urine Culture - Preliminary Urine Catheter - Catheter Pseudomonas aeroginosa 03/22/19 10:57 Bacteria Detection (PCR) - Final Blood Culture (Wb) - Other Enterococcus faecalis Blood Culture - Preliminary Enterococcus faecalis Laboratory Tests Past 24 Hrs 03/24/19 03/24/19 05:00 05:00 WBC 6.4 RBC 3.03 L Hgb 8.4 L Hct 27.5 L MCV 90.8 MCH 27.7 MCHC 30.5 L RDW 16.9 H RDW Differential 54.6 H Plt Count 218 MPV 10.0 Sodium 137 Potassium 3.5 Chloride 106 Carbon Dioxide 24.0 Anion Gap 7 BUN 30 H Creatinine 1.50 H Estim Creat Clear Calc 32.97 Est GFR (MDRD) Af Amer 44 L Est GFR (MDRD) Non-Af 36 L BUN/Creatinine Ratio 20.0 Glucose 99 Calcium 7.7 L POC Glucose 03/24/19 03/23/19 03/23/19 06:31 22:28 16:26 POC Glucose 99 94 101 Assessment/Plan Patient seen and examined independently. Data reviewed. I agree with the above note by the nurse practitioner. 1. Severe Sepsis Present on arrival (not simply sepsis as was originally documented) Secondary to UTI + bacteremia supportive management 2. UTI Catheter associated as patient has a chronic suprapubic catheter after discussing with the patient, pa Culture growing out Pseudomonas, not checked for sensitivity to Zosyn, but sensitive Meropenem--will start today. Sister was inquiring about suppressive medications after she was done with abx. Patient was already on Macrobid. May consider methenamine. ID on consult. 3. Bacteremia 1 of 2 + enterococcus repeat BCx today. may be source, though it is different organism from UTI consult ID. Informed will not be seen until 03/25 4. MICHAELLE improving. Baseline creatinine appears to be around 1.3, today is 1.97. We will hold patient's furosemide as well as metformin. Give IV fluids and reevaluate in the morning 5. Atrial arrhythmia: may have been atrial flutter. Beta-roopa stopped in lieu of diltiazem 120 dialy. 6. Tianna intertrigo I do not appreciate any cellulitis but the rash underneath her pannus seems to be more consistent with Tianna intertrigo Nystatin and continue to keep the area dry as best as possible She does have a skin tear on the left side, so we will have wound care come evaluate her. 7. Diabetes mellitus type 2: Metformin will be held Moderate dose sliding scale for the meantime 8. VTE prophylaxis: Lovenox. 9. Hand edema: not impressive on exam Reassurance provided. Explained that is likely due to IVF, infection/inflammation and protein malnutrition Code Visit Inpatient E&M: 51859 Subs Hosp L2
--- NOTE | 2019-03-24 11:27 | PN_ITS ---
<Latonya Ivy - Last Filed: 03/24/19 11:27> Patient Problems: Active and Suspected Problems (Last Updated 03/22/19 @ 13:35 by Luís Collazo DO) Candidal intertrigo (Acute) Atrial arrhythmia (Acute) Subjective: Patient seen and examined. More alert today. Overall feels improved. Continues to have intermittent fever. No other complaints. - Physical Exam General: Alert, Oriented x3, Cooperative HEENT: Atraumatic, PERRLA, EOMI, Normocephalic Neck: Supple, No JVD, Negative Carotid Bruits Lungs: Clear to auscultation, Diminished Cardiovascular: Regular rate, Regular Rhythm, Normal S1, Normal S2, No murmurs Abdomen: Bowel Sounds Present, Soft, Non Tender, Non-Distended, Obese, - - Suprapubic catheter in place Extremities: No clubbing, No cyanosis, Capillary Refill Less than 3 Seconds, Edema - Nonpitting bilateral lower extremities Skin: - - Left posterior thigh and sacral pressure ulcers, present on admission. Tianna intertrigo with significant excoriation. Musculoskeletal: No Tenderness to Palpation of Joints or Extremities Neurological: Cranial nerves II-XII grossly intact, Neuro grossly intact Psych/Mental Status: Normal Affect, Appropriate Vital Signs Temp Pulse Resp BP Pulse Ox 98.5 F 95 17 124/53 H 98 03/24/19 10:39 03/24/19 10:39 03/24/19 10:39 03/24/19 10:39 03/24/19 10:39 Oxygen Flow Rate (L/min) 2 Oxygen Delivery Method Nasal Cannula Weight: 337 lb 4.916 oz Body Mass Index (BMI) 52.8 Intake and Output for Last 24 Hours 03/22/19 03/23/19 03/24/19 23:59 23:59 23:59 Intake Total 2560 / 2560 4740 / 4740 1402 / 1402 Output Total 650 / 650 1376 / 1376 200 / 200 Balance 1910 / 1910 3364 / 3364 1202 / 1202 Microbiology Past 72 Hours 03/22/19 12:00 Urine Culture - Preliminary Urine Catheter - Catheter Pseudomonas aeroginosa 03/22/19 10:57 Bacteria Detection (PCR) - Final Blood Culture (Wb) - Other Enterococcus faecalis Blood Culture - Preliminary Enterococcus faecalis Laboratory Tests Past 24 Hrs 03/24/19 03/24/19 05:00 05:00 WBC 6.4 RBC 3.03 L Hgb 8.4 L Hct 27.5 L MCV 90.8 MCH 27.7 MCHC 30.5 L RDW 16.9 H RDW Differential 54.6 H Plt Count 218 MPV 10.0 Sodium 137 Potassium 3.5 Chloride 106 Carbon Dioxide 24.0 Anion Gap 7 BUN 30 H Creatinine 1.50 H Estim Creat Clear Calc 32.97 Est GFR (MDRD) Af Amer 44 L Est GFR (MDRD) Non-Af 36 L BUN/Creatinine Ratio 20.0 Glucose 99 Calcium 7.7 L POC Glucose 03/24/19 03/23/19 03/23/19 06:31 22:28 16:26 POC Glucose 99 94 101 03/23/19 11:07 POC Glucose 146 H Medical Necessity - Tobacco Use Smoking Status: Never smoker Assessment/Plan All Active Problems (Last Updated 03/22/19 @ 13:35 by Luís Collazo DO) UTI (urinary tract infection) (Acute) Sepsis (Acute) MICHAELLE (acute kidney injury) (Acute) Candidal intertrigo (Acute) Atrial arrhythmia (Acute) Suprapubic catheter dysfunction (Resolved) 1. Sepsis secondary to acute suprapubic catheter associated complicated Pseudomonas UTI and enterococcus faecalis bacteremia- Patient has a history of multidrug-resistant cultures. Continue IV vancomycin and IV meropenem given sen sitivities. Consult ID. Consult Dr. Zavala given leaking around catheter site. Repeat blood cultures pending. 2. SVT/atrial arrhythmia-suspect secondary to #1. Patient previously received adenosine X1 with improvement in heart rate. Cardiology recommending discontinuing beta-blockers , continue Cardizem CD 120 mg daily. Otherwise, no further cardiac work-up. 3. Severe abdominal wall pannus excoriation with candidal intertrigo/left posterior thigh and sacral pressure ulcers-continue nystatin powder, absorbent dressing to reduce moisture. carton repairer consult. Every 2 hour position marjorie cardona. 4. MICHAELLE on Chronic kidney disease stage III-improving, continue IV fluids, trend BMP. 5. Mild chronic hyponatremia-stable. 6. Chronic diastolic CHF-Echo October 2018 with EF 75%, stage I diastolic dysfunction. 7. Hypertension-continue metoprolol, Lisinopril. Lasix regimen on hold given MICHAELLE. 8. Hyperlipidemia-continue statin. 9. Type 2 diabetes mellitus-hold oral regimen. Accu-Cheks AC at bedtime with sliding scale insulin. 10. VITA-continue BiPAP regimen. 11. GERD-continue Protonix/Zantac. 12. Depression-continue home Cymbalta, Effexor regimen. 13. Super morbid obesity-encouraged diet lifestyle modifications. 14. Chronic normocytic anemia/anemia of chronic disease-at baseline. 15. Debility-Patient lives at home, unclear how mobile patient is. Patient with pressure ulcers as noted above. PT/OT. DVT prophylaxis-Lovenox subcu This patient was seen by DEDRICK Simmons under the supervision of Dr. Collazo. <Luís Collazo - Last Filed: 03/24/19 11:59> Subjective: Feels better. - Physical Exam General: Alert, Cooperative, - - much more alert. joking. HEENT: Atraumatic, Normocephalic Neck: Thyroid Normal Size and Texture Lungs: Clear to auscultation, Diminished Cardiovascular: Regular rate, Regular Rhythm, Normal S1, Normal S2, No murmurs Abdomen: Bowel Sounds Present, Soft, Non Tender, Non-Distended, Obese Extremities: No clubbing, No cyanosis Skin: - Musculoskeletal: No Tenderness to Palpation of Joints or Extremities Neurological: Cranial nerves II-XII grossly intact, Neuro grossly intact Psych/Mental Status: Normal Affect, Appropriate Vital Signs Temp Pulse Resp BP Pulse Ox 36.9 C 95 17 124/53 H 98 03/24/19 10:39 03/24/19 10:39 03/24/19 10:39 03/24/19 10:39 03/24/19 10:39 Oxygen Flow Rate (L/min) 2 Oxygen Delivery Method Nasal Cannula Weight: 153 kg Body Mass Index (BMI) 52.8 Intake and Output for Last 24 Hours 03/22/19 03/23/19 03/24/19 23:59 23:59 23:59 Intake Total 2560 / 2560 4740 / 4740 2502 / 2502 Output Total 650 / 650 1376 / 1376 700 / 700 Balance 1910 / 1910 3364 / 3364 1802 / 1802 Microbiology Past 72 Hours 03/22/19 12:00 Urine Culture - Preliminary Urine Catheter - Catheter Pseudomonas aeroginosa 03/22/19 10:57 Bacteria Detection (PCR) - Final Blood Culture (Wb) - Other Enterococcus faecalis Blood Culture - Preliminary Enterococcus faecalis Laboratory Tests Past 24 Hrs 03/24/19 03/24/19 05:00 05:00 WBC 6.4 RBC 3.03 L Hgb 8.4 L Hct 27.5 L MCV 90.8 MCH 27.7 MCHC 30.5 L RDW 16.9 H RDW Differential 54.6 H Plt Count 218 MPV 10.0 Sodium 137 Potassium 3.5 Chloride 106 Carbon Dioxide 24.0 Anion Gap 7 BUN 30 H Creatinine 1.50 H Estim Creat Clear Calc 32.97 Est GFR (MDRD) Af Amer 44 L Est GFR (MDRD) Non-Af 36 L BUN/Creatinine Ratio 20.0 Glucose 99 Calcium 7.7 L POC Glucose 03/24/19 03/23/19 03/23/19 06:31 22:28 16:26 POC Glucose 99 94 101 Assessment/Plan Patient seen and examined independently. Data reviewed. I agree with the above note by the nurse practitioner. 1. Severe Sepsis * Present on arrival (not simply sepsis as was originally documented) * Secondary to UTI + bacteremia * supportive management 2. UTI * Catheter associated as patient has a chronic suprapubic catheter after discussing with the patient, alivia * Culture growing out Pseudomonas, not checked for sensitivity to Zosyn, but sensitive Meropenem--will start today. * Sister was inquiring about suppressive medications after she was done with abx. Patient was already on Macrobid. May consider methenamine. * ID on consult. 3. Bacteremia * 1 of 2 + enterococcus * repeat BCx today. * may be source, though it is different organism from UTI * consult ID. Informed will not be seen until 03/25 4. MICHAELLE * improving. * Baseline creatinine appears to be around 1.3, today is 1.97. We will hold patient's furosemide as well as metformin. * Give IV fluids and reevaluate in the morning 5. Atrial arrhythmia: * may have been atrial flutter. * Beta-roopa stopped in lieu of diltiazem 120 dialy. 6. Tianna intertrigo * I do not appreciate any cellulitis but the rash underneath her pannus seems to be more consistent with Tianna intertrigo * Nystatin and continue to keep the area dry as best as possible * She does have a skin tear on the left side, so we will have wound care come evaluate her. 7. Diabetes mellitus type 2: * Metformin will be held * Moderate dose sliding scale for the meantime 8. VTE prophylaxis: Lovenox. 9. Hand edema: * not impressive on exam * Reassurance provided. Explained that is likely due to IVF, infection/inflammation and protein malnutrition Code Visit Inpatient E&M: 08232 Subs Hosp L2
[2019-03-24 11:56] LABS: Bedside Glucose 87 mg/dL (70-110)
[2019-03-24 16:45] LABS: Bedside Glucose 120 mg/dL (70-110)
[2019-03-24] MEDS: 0.9% NaCl Peripheral Flush Adult/Peds IV (21:52)
[2019-03-24] MEDS: levETIRAcetam 500 MG Tablet PO (21:55)
[2019-03-24] MEDS: Pravastatin 20 MG Tablet PO (21:56)
[2019-03-24 22:56] LABS: Bedside Glucose 113 mg/dL (70-110)
[2019-03-25] VITALS (13 sets, daily range): BP systolic 119–122; BP diastolic 56–72; PULSE 92–144; RESP 16–20; TEMP 36.9–37.7; O2SAT 91–94
[2019-03-25] MEDS: HYDROcodone Bitartrate/Apap 5/325 Tablet PO ×3 (00:22→21:44)
[2019-03-25 02:04] LABS: Vancomycin, Trough Level 12.7 ug/mL (5.0-15.0)
[2019-03-25] MEDS: Fluticasone 0.05% 1 SPRAY NASAL.SRY 2 SPRAY NASAL (04:33)
[2019-03-25] MEDS: Baclofen 10 MG Tablet PO ×3 (05:22→21:44)
--- NOTE | 2019-03-25 05:42 | PCM.RX.CS ---
Consult Pharmacy has been consulted to manage selected antiobiotic: Vancomycin Type of Consult: Follow-up Suspected Infection: Other Labs: Sodium 137 mmol/L (136-145) 03/24/19 05:00 Potassium 3.5 mmol/L (3.5-5.1) 03/24/19 05:00 Chloride 106 mmol/L (98-107) 03/24/19 05:00 Carbon Dioxide 24.0 mmol/L (21.0-32.0) 03/24/19 05:00 Anion Gap 7 (5-15) 03/24/19 05:00 BUN 30 mg/dL (7-18) H 03/24/19 05:00 Creatinine 1.50 mg/dL (0.55-1.02) H 03/24/19 05:00 Est GFR (MDRD) Af Amer 44 mL/min (>60) L 03/24/19 05:00 Est GFR (MDRD) Non-Af 36 mL/min (>60) L 03/24/19 05:00 BUN/Creatinine Ratio 20.0 RATIO (10-20) 03/24/19 05:00 Glucose 99 mg/dL (74-106) 03/24/19 05:00 Vancomycin Trough 12.7 ug/mL (5.0-15.0) 03/25/19 01:20 Microbiology: Microbiology 03/22/19 11:20 Blood Culture (Wb) - Anticubital Right Blood Culture - Preliminary No growth in 48 hours. 03/22/19 10:57 Blood Culture (Wb) - Other Bacteria Detection (PCR) - Final Enterococcus faecalis 03/22/19 10:57 Blood Culture (Wb) - Other Blood Culture - Preliminary Enterococcus faecalis 03/22/19 12:00 Urine Catheter - Catheter Urine Culture - Preliminary Pseudomonas aeroginosa Goal Trough: 10-15 mcg/mL Pharmacy Plan for Drug Dosing: Pharmacy Service will continue to monitor and adjust dosing as required. Medications Vancomycin HCl 1,500 mg/ (Sodium Chloride) 530 mls @ 250 mls/hr IV Q24H ZARINA Last Admin: 03/25/19 02:34 Dose: 250 mls/hr TROUGH 12.7 IN RANGE NO CHANGES. REDRAW TROUGH 03/29 @ 0130 Follow-Up Labs: Trough Vancomycin Labs to be done on [date and time ordered]: 03/29 @ 0130
[2019-03-25 06:23] LABS: Hematocrit 28.3 % (37-47); Hemoglobin 8.7 g/dl (12.0-15.0); Mean Corp Hgb Conc 30.7 g/gl (32-36); Mean Corpuscular Hgb 27.7 pg (27.0-32.0); Mean Corpuscular Volume 90.1 fL (81-99); Mean Platelet Vol. 9.4 fl (6.2-12.0); Platelet Count 206 K/mm3 (150-450); RBC Distribution Width CV 17.2 % (11.6-14.6); RBC Distribution Width SD 56.9 fl (35.1-43.9); Red Blood Count 3.14 M/mm3 (4.2-5.4); White Blood Count 6.9 K/mm3 (4.4-11.0)
[2019-03-25] MEDS: 0.9% Normal Saline 1,000 ML 125 ML IV (06:41)
[2019-03-25 06:44] LABS: Anion Gap 7 (5-15); BUN 25 mg/dL (7-18); BUN/Creat Ratio 20.7 RATIO (10-20); Calcium,Total 7.9 mg/dL (8.5-10.1); Chloride 107 mmol/L (98-107); Creatinine, Serum 1.21 mg/dL (0.55-1.02); EST Glomerular Filtration Rate 46 mL/min (>60); Est Glom Filt Rate - Afr Amer 56 mL/min (>60); Estimated Creatinine Clearance 40.87 ml/min; Glucose 89 mg/dL (74-106); Potassium 3.6 mmol/L (3.5-5.1); Scan Indicated on CBC? Y/N NO; Sodium Level 137 mmol/L (136-145)
[2019-03-25 07:00] LABS: Bedside Glucose 84 mg/dL (70-110)
[2019-03-25] MEDS: Multivitamins,Ther W-Minerals Tablet 1 TABLET PO ×4 (08:35→21:44)
[2019-03-25] MEDS: dilTIAZem CD 120 MG Capsule PO (08:35)
[2019-03-25] MEDS: Lisinopril 10 MG Tablet PO (08:35)
[2019-03-25] MEDS: Venlafaxine XR 150 MG Capsule PO ×2 (08:35→21:44)
[2019-03-25] MEDS: Glucerna Shake 120 ML LIQUID PO ×4 (08:36→21:48)
[2019-03-25] MEDS: Enoxaparin 30 MG/0.3 ML Syringe SC (08:36)
[2019-03-25] MEDS: Tolterodine Tartrate 4 MG CAP.SA PO (08:37)
[2019-03-25] MEDS: DULoxetine Hcl 30 MG Capsule PO (08:37)
[2019-03-25] MEDS: Famotidine 20 MG Tablet PO (08:38)
[2019-03-25] MEDS: Vitamin E 400 UNITS Capsule PO ×2 (08:38→21:44)
[2019-03-25] MEDS: Cyanocobalamin 500 MCG Tablet 1000 MCG PO (08:38)
[2019-03-25] MEDS: Gabapentin 600 MG Tablet PO ×2 (08:38→21:44)
[2019-03-25] MEDS: Pantoprazole Sodium 40 MG Tablet PO (08:38)
[2019-03-25 12:01] LABS: Bedside Glucose 94 mg/dL (70-110)
--- NOTE | 2019-03-25 13:12 | PCM.PROGNOTE ---
<Latonya Ivy - Last Filed: 03/25/19 13:21> Patient Problems: Active and Suspected Problems (Last Updated 03/22/19 @ 13:35 by Luís Collazo DO) Candidal intertrigo (Acute) Atrial arrhythmia (Acute) Subjective: Patient seen and examined. Reports she feels well, hoping to go home soon. Sister at bedside has concern for patient returning home. - Physical Exam General: Alert, Oriented x3, Cooperative HEENT: Atraumatic, PERRLA, EOMI, Normocephalic Neck: Supple, No JVD, Negative Carotid Bruits Lungs: Clear to auscultation, Diminished Cardiovascular: Regular rate, Regular Rhythm, Normal S1, Normal S2, No murmurs Abdomen: Bowel Sounds Present, Soft, Non Tender, Non-Distended, Obese, - - Suprapubic catheter in place Extremities: No clubbing, No cyanosis, No edema, Capillary Refill Less than 3 Seconds Skin: - - Left posterior thigh and sacral pressure ulcers, present on admission. Tianna intertrigo with significant excoriation. Musculoskeletal: No Tenderness to Palpation of Joints or Extremities Neurological: Cranial nerves II-XII grossly intact, Neuro grossly intact Psych/Mental Status: Normal Affect, Appropriate Vital Signs Temp Pulse Resp BP Pulse Ox 99.4 F H 95 18 119/67 92 03/25/19 09:45 03/25/19 09:45 03/25/19 09:45 03/25/19 09:45 03/25/19 09:45 Oxygen Flow Rate (L/min) 2 Oxygen Delivery Method Room Air Weight: 337 lb 4.916 oz Body Mass Index (BMI) 52.8 Intake and Output for Last 24 Hours 03/23/19 03/24/19 03/25/19 23:59 23:59 23:59 Intake Total 4740 / 4740 3927 / 3927 3197 / 3197 Output Total 1376 / 1376 1200 / 1200 1225 / 1225 Balance 3364 / 3364 2727 / 2727 1971 Microbiology Past 72 Hours 03/23/19 13:16 Blood Culture - Preliminary Blood Culture (Wb) - Left Hand No growth in 48 hours. 03/23/19 13:12 Blood Culture - Preliminary Blood Culture (Wb) - Right Hand No growth in 48 hours. 03/22/19 12:00 Urine Culture - Final Urine Catheter - Catheter Pseudomonas aeroginosa 03/22/19 10:57 Bacteria Detection (PCR) - Final Blood Culture (Wb) - Other Enterococcus faecalis Blood Culture - Preliminary Enterococcus faecium 03/22/19 11:20 Blood Culture - Preliminary Blood Culture (Wb) - Anticubital Right No growth in 48 hours. Laboratory Tests Past 24 Hrs 03/25/19 03/25/19 03/25/19 01:20 06:00 06:00 WBC 6.9 RBC 3.14 L Hgb 8.7 L Hct 28.3 L MCV 90.1 MCH 27.7 MCHC 30.7 L RDW 17.2 H RDW Differential 56.9 H Plt Count 206 MPV 9.4 Sodium 137 Potassium 3.6 Chloride 107 Carbon Dioxide 23.0 Anion Gap 7 BUN 25 H Creatinine 1.21 H Estim Creat Clear Calc 40.87 Est GFR (MDRD) Af Amer 56 L Est GFR (MDRD) Non-Af 46 L BUN/Creatinine Ratio 20.7 H Glucose 89 Calcium 7.9 L Vancomycin Trough 12.7 POC Glucose 03/25/19 03/25/19 03/24/19 11:51 06:39 21:50 POC Glucose 94 84 113 H 03/24/19 16:38 POC Glucose 120 H Medical Necessity - Tobacco Use Smoking Status: Never smoker Assessment/Plan All Active Problems (Last Updated 03/22/19 @ 13:35 by Luís Collazo DO) UTI (urinary tract infection) (Acute) Sepsis (Acute) MICHAELLE (acute kidney injury) (Acute) Candidal intertrigo (Acute) Atrial arrhythmia (Acute) Suprapubic catheter dysfunction (Resolved) 1. Sepsis secondary to acute suprapubic catheter associated complicated Pseudomonas UTI- Patient has a history of multidrug-resistant cultures. Continue IV vancomycin and IV meropenem given sensitivities. ID consulted. Consult Dr. Zavala given leaking around catheter site. Initial blood culture with enterococcus faecalis in 1/2 cultures. Suspect this may have been contaminant. Repeat blood cultures show no growth. ID recommending IV antibiotic course at discharge. Anticipate SNF at [place] if patient is agreeable. 2. SVT/atrial arrhythmia-suspect secondary to #1. Patient previously received adenosine X1 with improvement in heart rate. Cardiology recommending discontinuing beta-blockers , continue Cardizem CD 120 mg daily. Otherwise, no further cardiac work-up. 3. Severe abdominal wall pannus excoriation with candidal intertrigo/left posterior thigh and sacral pressure ulcers-continue nystatin powder, absorbent dressing to reduce moisture. automobile racer consult. Every 2 hour position changes. 4. MICHAELLE on Chronic kidney disease stage III-improved, DC IV fluids, trend BMP. 5. Mild chronic hyponatremia-stable. 6. Chronic diastolic CHF-Echo October 2018 with EF 75%, stage I diastolic dysfunction. 7. Hypertension-continue metoprolol, Lisinopril. Lasix regimen on hold given MICHAELLE. 8. Hyperlipidemia-continue statin. 9. Type 2 diabetes mellitus-hold oral regimen. Accu-Cheks AC at bedtime with sliding scale insulin. 10. VITA-continue BiPAP regimen. 11. GERD-continue Protonix/Zantac. 12. Depression-continue home Cymbalta, Effexor regimen. 13. Super morbid obesity-encouraged diet lifestyle modifications. 14. Chronic normocytic anemia/anemia of chronic disease-at baseline. 15. Debility- PT/OT. DVT prophylaxis-Lovenox subcu Discharge planning: Possible SNF at [place] given ID recommendations for IV antibiotic course at discharge. This patient was seen by DEDRICK Simmons under the supervision of Dr. Collazo. <Luís Collazo - Last Filed: 03/25/19 13:43> - Physical Exam General: Alert, Cooperative HEENT: Atraumatic, Normocephalic Neck: No Nodes, Thyroid Normal Size and Texture Lungs: Clear to auscultation, Diminished Cardiovascular: Regular rate, Regular Rhythm, Normal S1, Normal S2, No murmurs Abdomen: Bowel Sounds Present, Soft, Non Tender, Non-Distended, Obese, - Extremities: No clubbing, No cyanosis, No edema, Capillary Refill Less than 3 Seconds Skin: - Musculoskeletal: No Tenderness to Palpation of Joints or Extremities Psych/Mental Status: Normal Affect, Appropriate Vital Signs Temp Pulse Resp BP Pulse Ox 37.4 C H 95 18 119/67 92 03/25/19 09:45 03/25/19 09:45 03/25/19 09:45 03/25/19 09:45 03/25/19 09:45 Oxygen Flow Rate (L/min) 2 Oxygen Delivery Method Room Air Weight: 153 kg Body Mass Index (BMI) 52.8 Intake and Output for Last 24 Hours 03/23/19 03/24/19 03/25/19 23:59 23:59 23:59 Intake Total 4740 / 4740 3927 / 3927 3197 / 3197 Output Total 1376 / 1376 1200 / 1200 1225 / 1225 Balance 3364 / 3364 2727 / 2727 1971 Microbiology Past 72 Hours 03/23/19 13:16 Blood Culture - Preliminary Blood Culture (Wb) - Left Hand No growth in 48 hours. 03/23/19 13:12 Blood Culture - Preliminary Blood Culture (Wb) - Right Hand No growth in 48 hours. 03/22/19 12:00 Urine Culture - Final Urine Catheter - Catheter Pseudomonas aeroginosa 03/22/19 10:57 Bacteria Detection (PCR) - Final Blood Culture (Wb) - Other Enterococcus faecalis Blood Culture - Preliminary Enterococcus faecium 03/22/19 11:20 Blood Culture - Preliminary Blood Culture (Wb) - Anticubital Right No growth in 48 hours. Laboratory Tests Past 24 Hrs 03/25/19 03/25/19 03/25/19 01:20 06:00 06:00 WBC 6.9 RBC 3.14 L Hgb 8.7 L Hct 28.3 L MCV 90.1 MCH 27.7 MCHC 30.7 L RDW 17.2 H RDW Differential 56.9 H Plt Count 206 MPV 9.4 Sodium 137 Potassium 3.6 Chloride 107 Carbon Dioxide 23.0 Anion Gap 7 BUN 25 H Creatinine 1.21 H Estim Creat Clear Calc 40.87 Est GFR (MDRD) Af Amer 56 L Est GFR (MDRD) Non-Af 46 L BUN/Creatinine Ratio 20.7 H Glucose 89 Calcium 7.9 L Vancomycin Trough 12.7 POC Glucose 03/25/19 03/25/19 03/24/19 11:51 06:39 21:50 POC Glucose 94 84 113 H 03/24/19 16:38 POC Glucose 120 H Assessment/Plan Patient seen and examined independently. Data reviewed. I agree with the above note by the nurse practitioner. 1. Severe Sepsis Present on arrival (not simply sepsis as was originally documented) Secondary to UTI + bacteremia supportive management 2. UTI Catheter associated as patient has a chronic suprapubic catheter after discussing with the patient, pa Culture growing out Pseudomonas, not checked for sensitivity to Zosyn, but sensitive Meropenem--will start today. Sister was inquiring about suppressive medications after she was done with abx. Patient was already on Macrobid. May consider methenamine. ID on consult. 3. Bacteremia 1 of 2 + enterococcus repeat BCx today. may be source, though it is different organism from UTI consult ID. Informed will not be seen until 03/25 4. MICHAELLE improving. Baseline creatinine appears to be around 1.3, today is 1.97. We will hold patient's furosemide as well as metformin. Give IV fluids and reevaluate in the morning 5. Atrial arrhythmia: may have been atrial flutter. Beta-roopa stopped in lieu of diltiazem 120 dialy. 6. Tianna intertrigo I do not appreciate any cellulitis but the rash underneath her pannus seems to be more consistent with Tianna intertrigo Nystatin and continue to keep the area dry as best as possible She does have a skin tear on the left side, so we will have wound care come evaluate her. 7. Diabetes mellitus type 2: Metformin will be held Moderate dose sliding scale for the meantime 8. VTE prophylaxis: Lovenox. 9. Hand edema: not impressive on exam Reassurance provided. Explained that is likely due to IVF, infection/inflammation and protein malnutrition Code Visit Inpatient E&M: 86310 Subs Hosp L2
[2019-03-25] MEDS: Albuterol 2.5 MG/3 ML VIAL.NEB. INHALATION (13:17)
--- NOTE | 2019-03-25 13:20 | PN_ITS ---
<Latonya Ivy - Last Filed: 03/25/19 13:21> Patient Problems: Active and Suspected Problems (Last Updated 03/22/19 @ 13:35 by Luís Collazo DO) Candidal intertrigo (Acute) Atrial arrhythmia (Acute) Subjective: Patient seen and examined. Reports she feels well, hoping to go home soon. Sister at bedside has concern for patient returning home. - Physical Exam General: Alert, Oriented x3, Cooperative HEENT: Atraumatic, PERRLA, EOMI, Normocephalic Neck: Supple, No JVD, Negative Carotid Bruits Lungs: Clear to auscultation, Diminished Cardiovascular: Regular rate, Regular Rhythm, Normal S1, Normal S2, No murmurs Abdomen: Bowel Sounds Present, Soft, Non Tender, Non-Distended, Obese, - - Suprapubic catheter in place Extremities: No clubbing, No cyanosis, No edema, Capillary Refill Less than 3 Seconds Skin: - - Left posterior thigh and sacral pressure ulcers, present on admission. Tianna intertrigo with significant excoriation. Musculoskeletal: No Tenderness to Palpation of Joints or Extremities Neurological: Cranial nerves II-XII grossly intact, Neuro grossly intact Psych/Mental Status: Normal Affect, Appropriate Vital Signs Temp Pulse Resp BP Pulse Ox 99.4 F H 95 18 119/67 92 03/25/19 09:45 03/25/19 09:45 03/25/19 09:45 03/25/19 09:45 03/25/19 09:45 Oxygen Flow Rate (L/min) 2 Oxygen Delivery Method Room Air Weight: 337 lb 4.916 oz Body Mass Index (BMI) 52.8 Intake and Output for Last 24 Hours 03/23/19 03/24/19 03/25/19 23:59 23:59 23:59 Intake Total 4740 / 4740 3927 / 3927 3197 / 3197 Output Total 1376 / 1376 1200 / 1200 1225 / 1225 Balance 3364 / 3364 2727 / 2727 1971 Microbiology Past 72 Hours 03/23/19 13:16 Blood Culture - Preliminary Blood Culture (Wb) - Left Hand No growth in 48 hours. 03/23/19 13:12 Blood Culture - Preliminary Blood Culture (Wb) - Right Hand No growth in 48 hours. 03/22/19 12:00 Urine Culture - Final Urine Catheter - Catheter Pseudomonas aeroginosa 03/22/19 10:57 Bacteria Detection (PCR) - Final Blood Culture (Wb) - Other Enterococcus faecalis Blood Culture - Preliminary Enterococcus faecium 03/22/19 11:20 Blood Culture - Preliminary Blood Culture (Wb) - Anticubital Right No growth in 48 hours. Laboratory Tests Past 24 Hrs 03/25/19 03/25/19 03/25/19 01:20 06:00 06:00 WBC 6.9 RBC 3.14 L Hgb 8.7 L Hct 28.3 L MCV 90.1 MCH 27.7 MCHC 30.7 L RDW 17.2 H RDW Differential 56.9 H Plt Count 206 MPV 9.4 Sodium 137 Potassium 3.6 Chloride 107 Carbon Dioxide 23.0 Anion Gap 7 BUN 25 H Creatinine 1.21 H Estim Creat Clear Calc 40.87 Est GFR (MDRD) Af Amer 56 L Est GFR (MDRD) Non-Af 46 L BUN/Creatinine Ratio 20.7 H Glucose 89 Calcium 7.9 L Vancomycin Trough 12.7 POC Glucose 03/25/19 03/25/19 03/24/19 11:51 06:39 21:50 POC Glucose 94 84 113 H 03/24/19 16:38 POC Glucose 120 H Medical Necessity - Tobacco Use Smoking Status: Never smoker Assessment/Plan All Active Problems (Last Updated 03/22/19 @ 13:35 by Luís Collazo DO) UTI (urinary tract infection) (Acute) Sepsis (Acute) MICHAELLE (acute kidney injury) (Acute) Candidal intertrigo (Acute) Atrial arrhythmia (Acute) Suprapubic catheter dysfunction (Resolved) 1. Sepsis secondary to acute suprapubic catheter associated complicated Pseudomonas UTI- Patient has a history of multidrug-resistant cultures. Continue IV vancomycin and IV meropenem given sensitivities. ID consulted. Consult Dr. Zavala given leaking around catheter site. Initial blood culture with enterococcus faecalis in 1/2 cultures. Suspect this may have been contaminant. Repeat blood cultures show no growth. ID recommending IV antibiotic course at discharge. Anticipate SNF at [place] if patient is agreeable. 2. SVT/atrial arrhythmia-suspect secondary to #1. Patient previously received adenosine X1 with improvement in heart rate. Cardiology recommending discontinu ing beta-blockers , continue Cardizem CD 120 mg daily. Otherwise, no further cardiac work-up. 3. Severe abdominal wall pannus excoriation with candidal intertrigo/left posterior thigh and sacral pressure ulcers-continue nystatin powder, absorbent dressing to reduce moisture. security system sales consultant consult. Every 2 hour position changes. 4. MICHAELLE on Chronic kidney disease stage III-improved, DC IV fluids, trend BMP. 5. Mild chronic hyponatremia-stable. 6. Chronic diastolic CHF-Echo October 2018 with EF 75%, stage I diastolic dysfunction. 7. Hypertension-continue metoprolol, Lisinopril. Lasix regimen on hold given MICHAELLE. 8. Hyperlipidemia-continue statin. 9. Type 2 diabetes mellitus-hold oral regimen. Accu-Cheks AC at bedtime with sliding scale insulin. 10. VITA-continue BiPAP regimen. 11. GERD-continue Protonix/Zantac. 12. Depression-continue home Cymbalta, Effexor regimen. 13. Super morbid obesity-encouraged diet lifestyle modifications. 14. Chronic normocytic anemia/anemia of chronic disease-at baseline. 15. Debility- PT/OT. DVT prophylaxis-Lovenox subcu Discharge planning: Possible SNF at [place] given ID recommendations for IV antibiotic course at discharge. This patient was seen by DEDRICK Simmons under the supervision of Dr. Collazo. <Luís Collazo - Last Filed: 03/25/19 13:43> - Physical Exam General: Alert, Cooperative HEENT: Atraumatic, Normocephalic Neck: No Nodes, Thyroid Normal Size and Texture Lungs: Clear to auscultation, Diminished Cardiovascular: Regular rate, Regular Rhythm, Normal S1, Normal S2, No murmurs Abdomen: Bowel Sounds Present, Soft, Non Tender, Non-Distended, Obese, - Extremities: No clubbing, No cyanosis, No edema, Capillary Refill Less than 3 Seconds Skin: - Musculoskeletal: No Tenderness to Palpation of Joints or Extremities Psych/Mental Status: Normal Affect, Appropriate Vital Signs Temp Pulse Resp BP Pulse Ox 37.4 C H 95 18 119/67 92 03/25/19 09:45 03/25/19 09:45 03/25/19 09:45 03/25/19 09:45 03/25/19 09:45 Oxygen Flow Rate (L/min) 2 Oxygen Delivery Method Room Air Weight: 153 kg Body Mass Index (BMI) 52.8 Intake and Output for Last 24 Hours 03/23/19 03/24/19 03/25/19 23:59 23:59 23:59 Intake Total 4740 / 4740 3927 / 3927 3197 / 3197 Output Total 1376 / 1376 1200 / 1200 1225 / 1225 Balance 3364 / 3364 2727 / 2727 1971 Microbiology Past 72 Hours 03/23/19 13:16 Blood Culture - Preliminary Blood Culture (Wb) - Left Hand No growth in 48 hours. 03/23/19 13:12 Blood Culture - Preliminary Blood Culture (Wb) - Right Hand No growth in 48 hours. 03/22/19 12:00 Urine Culture - Final Urine Catheter - Catheter Pseudomonas aeroginosa 03/22/19 10:57 Bacteria Detection (PCR) - Final Blood Culture (Wb) - Other Enterococcus faecalis Blood Culture - Preliminary Enterococcus faecium 03/22/19 11:20 Blood Culture - Preliminary Blood Culture (Wb) - Anticubital Right No growth in 48 hours. Laboratory Tests Past 24 Hrs 03/25/19 03/25/19 03/25/19 01:20 06:00 06:00 WBC 6.9 RBC 3.14 L Hgb 8.7 L Hct 28.3 L MCV 90.1 MCH 27.7 MCHC 30.7 L RDW 17.2 H RDW Differential 56.9 H Plt Count 206 MPV 9.4 Sodium 137 Potassium 3.6 Chloride 107 Carbon Dioxide 23.0 Anion Gap 7 BUN 25 H Creatinine 1.21 H Estim Creat Clear Calc 40.87 Est GFR (MDRD) Af Amer 56 L Est GFR (MDRD) Non-Af 46 L BUN/Creatinine Ratio 20.7 H Glucose 89 Calcium 7.9 L Vancomycin Trough 12.7 POC Glucose 03/25/19 03/25/19 03/24/19 11:51 06:39 21:50 POC Glucose 94 84 113 H 03/24/19 16:38 POC Glucose 120 H Assessment/Plan Patient seen and examined independently. Data reviewed. I agree with the above note by the nurse practitioner. 1. Severe Sepsis * Present on arrival (not simply sepsis as was originally documented) * Secondary to UTI + bacteremia * supportive management 2. UTI * Catheter associated as patient has a chronic suprapubic catheter after discussing with the patient, pa * Culture growing out Pseudomonas, not checked for sensitivity to Zosyn, but sensitive Meropenem--will start today. * Sister was inquiring about suppressive medications after she was done with abx. Patient was already on Macrobid. May consider methenamine. * ID on consult. 3. Bacteremia * 1 of 2 + enterococcus * repeat BCx today. * may be source, though it is different organism from UTI * consult ID. Informed will not be seen until 03/25 4. MICHAELLE * improving. * Baseline creatinine appears to be around 1.3, today is 1.97. We will hold patient's furosemide as well as metformin. * Give IV fluids and reevaluate in the morning 5. Atrial arrhythmia: * may have been atrial flutter. * Beta-roopa stopped in lieu of diltiazem 120 dialy. 6. Tianna intertrigo * I do not appreciate any cellulitis but the rash underneath her pannus seems to be more consistent with Tianna intertrigo * Nystatin and continue to keep the area dry as best as possible * She does have a skin tear on the left side, so we will have wound care come evaluate her. 7. Diabetes mellitus type 2: * Metformin will be held * Moderate dose sliding scale for the meantime 8. VTE prophylaxis: Lovenox. 9. Hand edema: * not impressive on exam * Reassurance provided. Explained that is likely due to IVF, infection/infl ammation and protein malnutrition Code Visit Inpatient E&M: 09651 Subs Hosp L2
--- NOTE | 2019-03-25 13:23 | PCM.HP.ID ---
Problem List (1) Sepsis Status: Acute Reason for Consult: bacteremia Consulted by: Dr. Collazo History of Present Illness: The patient is a 73 year old F with suprapubic catheter and PsA colonization who presented 03/22 with severe sepsis. She does not remember what happened that day. Reports feeling fine prior to that with clear urine. No issues with catheter. Taken to ED, found to have MICHAELLE, lactic acidosis, fever. Admitted on vanc/zosyn, changed to vanc/wenceslao due to pseudomonas in ucx. Bcx with enterococcus. Feeling better, no fever. Full ROS performed and neg except as noted above. - Medical History Past Medical History (Chronic Problems): Chronic Problems (Last Updated 03/22/19 @ 13:35 by Luís Collazo DO) Debility (Chronic) Depression (Chronic) VITA (obstructive sleep apnea) (Chronic) Allergies/Adverse Reactions: Allergies adhesive tape Allergy (Verified 02/28/19 22:06) blisters Influenza Virus Vaccines Allergy (Verified 02/28/19 22:06) shortness of breath/severe wheezing iron Allergy (Verified 02/28/19 22:06) from IV form chest pressure and heart palpitations Sulfa (Sulfonamide Antibiotics) Allergy (Verified 02/28/19 22:06) Shortness of breath bactrim does not work for her-per pcp paperwork meloxicam [From Mobic] Adverse Reaction (Verified 02/28/19 22:06) gi upset seasonal allergies Allergy (Uncoded 02/28/19 22:06) Other Home Medications: Ambulatory Orders Medication Instructions Recorded DiphenhydrAMINE [Benadryl] 25 mg PO BID PRN PRN 09/30/13 Furosemide [Lasix] 20 mg PO TID 09/30/13 Pantoprazole Sodium [Protonix] 40 mg PO DAILY 09/30/13 Albuterol Inhaler [Ventolin Hfa] 2 puff INHALATION Q4H PRN PRN 10/30/18 Baclofen 10 mg PO TID 10/30/18 Cholecalciferol (VIT D3) [Vitamin 1,000 unit PO DAILY 10/30/18 D3] Cranberry Conc/Ascorbic Acid 1 each PO BID 10/30/18 [Cranberry Concentrate Softgel] Diphenoxylate/Atrop [Lomotil] 1 tablet PO 4X/DAY PRN PRN 10/30/18 Gabapentin [Neurontin] 600 mg PO BID 10/30/18 Lisinopril [Zestril] 10 mg PO DAILY 10/30/18 Metformin HCl [Glucophage] 500 mg PO BID 10/30/18 Metoprolol(XL)Succ [Toprol Xl 25 mg PO DAILY 10/30/18 (Beta Genaro)] Multivitamins,Ther W-Minerals 1 tablet PO 4X/DAY 10/30/18 [Multivitamin With Minerals] Nystatin Powder [Mycostatin Powder] 1 applicatio TOPICAL BID PRN PRN 10/30/18 Oxybutynin Chloride [Ditropan Xl] 15 mg PO DAILY 10/30/18 Potassium (Otc) [Potassium OTC] 99 mg PO DAILY 10/30/18 Ranitidine [Zantac] 150 mg PO BID 10/30/18 Vitamin E 400 units PO BID 10/30/18 levETIRAcetam tablet [Keppra 500 mg PO QHS 10/30/18 tablet] Cyanocobalamin (Vitamin B-12) 1,000 mcg PO DAILY 12/17/18 [B-12] Pravastatin [Pravachol] 20 mg PO QHS 12/17/18 Venlafaxine HCl [Effexor] 150 mg PO BID 12/17/18 Duloxetine HCl 60 mg PO DAILY 03/22/19 Naproxen [Naprosyn] 500 mg PO BID PRN PRN 03/22/19 Nitrofurantoin Macrocrystal 100 mg PO QHS 03/22/19 [Nitrofurantoin] - Social History Tobacco Use: non-smoker Vital Signs Temp Pulse Resp BP Pulse Ox 99.4 F H 95 18 119/67 92 03/25/19 09:45 03/25/19 09:45 03/25/19 09:45 03/25/19 09:45 03/25/19 09:45 Oxygen Flow Rate (L/min) 2 Oxygen Delivery Method Room Air Weight: 153 kg Body Mass Index (BMI) 52.8 Microbiology Past 72 Hours 03/23/19 13:16 Blood Culture - Preliminary Blood Culture (Wb) - Left Hand No growth in 48 hours. 03/23/19 13:12 Blood Culture - Preliminary Blood Culture (Wb) - Right Hand No growth in 48 hours. 03/22/19 12:00 Urine Culture - Final Urine Catheter - Catheter Pseudomonas aeroginosa 03/22/19 10:57 Bacteria Detection (PCR) - Final Blood Culture (Wb) - Other Enterococcus faecalis Blood Culture - Preliminary Enterococcus faecium 03/22/19 11:20 Blood Culture - Preliminary Blood Culture (Wb) - Anticubital Right No growth in 48 hours. Laboratory Tests Past 24 Hrs 03/25/19 03/25/19 03/25/19 01:20 06:00 06:00 WBC 6.9 RBC 3.14 L Hgb 8.7 L Hct 28.3 L MCV 90.1 MCH 27.7 MCHC 30.7 L RDW 17.2 H RDW Differential 56.9 H Plt Count 206 MPV 9.4 Sodium 137 Potassium 3.6 Chloride 107 Carbon Dioxide 23.0 Anion Gap 7 BUN 25 H Creatinine 1.21 H Estim Creat Clear Calc 40.87 Est GFR (MDRD) Af Amer 56 L Est GFR (MDRD) Non-Af 46 L BUN/Creatinine Ratio 20.7 H Glucose 89 Calcium 7.9 L Vancomycin Trough 12.7 - Other Studies Radiology: [] reviewed Other Studies: [] Route of nutrition/ use of supplements: [] Nutritional Intake: [] IV Site: [] Henry Catheter: [] - Physical Exam General: Alert, Oriented x3, Cooperative, No apparent distress HEENT: Atraumatic, PERRLA, EOMI Neck: Supple, No Nodes Lungs: Clear to auscultation, Normal air movement Cardiovascular: Regular rate, Regular Rhythm, No murmurs Abdomen: Soft, Non Tender, Non-Distended Extremities: Edema - some BLE Skin: No rashes, - - suprapubic in place, no drainage IV Site: Peripheral, without redness Musculoskeletal: No Tenderness to Palpation of Joints or Extremities Neurological: Cranial nerves II-XII grossly intact - Assessment/Plan Antibiotics: [] Assessment/Plan: [] Active and Suspected Problems (Last Updated 03/22/19 @ 13:35 by Luís Collazo DO) Candidal intertrigo (Acute) Atrial arrhythmia (Acute) severe sepsis with MICHAELLE, lactic acidosis, fever, and tachycardia - much improved vitals and labs. Cr much better. It's not clear where this infection came from. Enterococcus is only in 1 of 2 bcx, not clear where this could have came from; no GI symptoms. UA with much less pyuria than is typical for her, and she has chronic PsA colonization. Abx do seem to be helping, so I think she will have to leave hospital on iv abx via picc. Will order picc. Cont vanc/wenceslao for now. Spoke with [facility] and they are sending out for cat an on the PsA. Will follow, thank you, d/w rn case manager hospice and primary team.
--- NOTE | 2019-03-25 13:37 | CASEMGMT ---
Addendum entered by Asya Mcdermott 03/25/19 13:50: Pt to be sent on meropenem 500mg iv three times daily and vancomycin 1500mg iv daily. Berry MUÑOZ CM Original Note: Per Dr. Flores, pt will need to go home on iv antibx three times daily for about 10days. This RN CM to room to speak with pt regarding same and pt declines SNF placement at this time and insists on going home and that her private duty caregiver can be taught to do the iv antibx. Pt states that she is fine with [facility] and that she would like [facility]. Call to Krysten at [facility] and she states that they can take pt at this time. Referral faxed to [facility] at this time. Berry MUÑOZ CM
--- NOTE | 2019-03-25 15:06 | EKG12_ITS ---
Test Reason : RHYTHM Blood Pressure : / mmHG Vent. Rate : 101 BPM Atrial Rate : 101 BPM P-R Int : 138 ms QRS Dur : 088 ms QT Int : 368 ms P-R-T Axes : -17 087 045 degrees QTc Int : 477 ms Sinus tachycardia with Premature atrial complexes Low voltage QRS Borderline ECG Confirmed by SEBASTIÁN THOMPSON, KENNEDY ([id number]), mapping editor BROOKS WIGGINS ([id number]) on 03/27/2019 1:53:54 PM Referred By: GOVIND Confirmed By:KENNEDY LOWERY MD
--- NOTE | 2019-03-25 16:12 | CASEMGMT ---
This TONI MARTINES received call from Jaqueline at [facility] and she states that pt's 7 day co-pay for Meropenem is $94.14 and Vancomycin is $65.29. She states that pt's daily co-pay for $40/day for supplies. Jaquelien states she will place a call to pt either later today or tomorrow. Jaqueline is also aware that [facility] will take pt. SStpatel MUÑOZ CM
[2019-03-25 16:55] LABS: Bedside Glucose 88 mg/dL (70-110)
[2019-03-25] MEDS: Pravastatin 20 MG Tablet PO (21:44)
[2019-03-25] MEDS: levETIRAcetam 500 MG Tablet PO (21:45)
[2019-03-25 22:10] LABS: Bedside Glucose 100 mg/dL (70-110)
[2019-03-26] VITALS (7 sets, daily range): BP systolic 126–144; BP diastolic 65–75; PULSE 88–101; RESP 16–18; TEMP 36.6–37.1; O2SAT 91–94
[2019-03-26] MEDS: 0.9% NaCl Peripheral Flush Adult/Peds IV ×3 (05:35→05:37)
[2019-03-26 05:44] LABS: Hematocrit 29.6 % (37-47); Hemoglobin 9.1 g/dl (12.0-15.0); Mean Corp Hgb Conc 30.7 g/gl (32-36); Mean Corpuscular Hgb 27.7 pg (27.0-32.0); Mean Platelet Vol. 9.6 fl (6.2-12.0); Platelet Count 248 K/mm3 (150-450); RBC Distribution Width CV 16.8 % (11.6-14.6); RBC Distribution Width SD 53.6 fl (35.1-43.9); Red Blood Count 3.29 M/mm3 (4.2-5.4); White Blood Count 8.3 K/mm3 (4.4-11.0)
[2019-03-26] MEDS: Baclofen 10 MG Tablet PO ×2 (05:56→13:11)
[2019-03-26 05:59] LABS: Anion Gap 7 (5-15); BUN 18 mg/dL (7-18); BUN/Creat Ratio 18.4 RATIO (10-20); Calcium,Total 8.2 mg/dL (8.5-10.1); Chloride 105 mmol/L (98-107); Creatinine, Serum 0.98 mg/dL (0.55-1.02); EST Glomerular Filtration Rate 59 mL/min (>60); Est Glom Filt Rate - Afr Amer 72 mL/min (>60); Estimated Creatinine Clearance 50.46 ml/min; Glucose 108 mg/dL (74-106); Potassium 3.6 mmol/L (3.5-5.1); Sodium Level 136 mmol/L (136-145)
[2019-03-26 06:06] LABS: Scan Indicated on CBC? Y/N NO
[2019-03-26 06:45] LABS: Bedside Glucose 104 mg/dL (70-110)
[2019-03-26] MEDS: Lisinopril 10 MG Tablet PO (08:27)
[2019-03-26] MEDS: Famotidine 20 MG Tablet PO (08:27)
[2019-03-26] MEDS: DULoxetine Hcl 30 MG Capsule PO (08:27)
[2019-03-26] MEDS: Pantoprazole Sodium 40 MG Tablet PO (08:27)
[2019-03-26] MEDS: Venlafaxine XR 150 MG Capsule PO (08:28)
[2019-03-26] MEDS: dilTIAZem CD 120 MG Capsule PO (08:28)
[2019-03-26] MEDS: Tolterodine Tartrate 4 MG CAP.SA PO (08:28)
[2019-03-26] MEDS: Fluticasone 0.05% 1 SPRAY NASAL.SRY 2 SPRAY NASAL (08:28)
[2019-03-26] MEDS: Enoxaparin 30 MG/0.3 ML Syringe SC (08:29)
[2019-03-26] MEDS: Multivitamins,Ther W-Minerals Tablet 1 TABLET PO ×2 (08:29→13:11)
[2019-03-26] MEDS: Glucerna Shake 120 ML LIQUID PO (08:29)
[2019-03-26] MEDS: Gabapentin 600 MG Tablet PO (08:29)
[2019-03-26] MEDS: Vitamin E 400 UNITS Capsule PO (08:30)
[2019-03-26] MEDS: Cyanocobalamin 500 MCG Tablet 1000 MCG PO (08:30)
--- NOTE | 2019-03-26 10:12 | CASEMGMT ---
Addendum entered by Asya Mcdermott 03/26/19 11:23: Call back to Jaqueline at [facility] [place] and she states that she was going to call pt next to go over financial info and then let this RN CONRDA know when pt is good on their end. Jaqueline is aware that pt will be discharged this afternoon and will need supplies delivered prior to 2000 tonight for Meropenem dose, voices understanding. Berry MUÑOZ CM Original Note: Message left with Jaqueline at [facility] [place] to notify her that pt to leave today and to see if she spoke with pt regarding financials. Jaqueline's contact info [phone]. Berry MUÑOZ CM
--- NOTE | 2019-03-26 10:20 | DCINST_ITS ---
- Discharge Diagnoses Current Active Problems: Current Active and Chronic Problems (Last Updated 03/22/19 @ 13:35 by Luís Collazo DO) Sepsis, UTI You will use the following diet at home:: Calorie/Carbohydrate Controlled (specify 1200, 1400, etc), Cardiac Discharge Activity: Return to Normal Activity Call your doctor if you observe: Fever of 101 or Higher, Shortness of breath, Dizziness, Fainting spells Allergies/Adverse Reactions: Allergies adhesive tape Allergy (Verified 02/28/19 22:06) blisters Influenza Virus Vaccines Allergy (Verified 02/28/19 22:06) shortness of breath/severe wheezing iron Allergy (Verified 02/28/19 22:06) from IV form chest pressure and heart palpitations Sulfa (Sulfonamide Antibiotics) Allergy (Verified 02/28/19 22:06) Shortness of breath bactrim does not work for her-per pcp paperwork meloxicam [From Mobic] Adverse Reaction (Verified 02/28/19 22:06) gi upset seasonal allergies Allergy (Uncoded 02/28/19 22:06) Other Medications to take at Discharge DiphenhydrAMINE [Benadryl] 25 mg PO BID PRN PRN 09/30/13 Furosemide [Lasix] 20 mg PO TID 09/30/13 Pantoprazole Sodium [Protonix] 40 mg PO DAILY 09/30/13 Albuterol Inhaler [Ventolin Hfa] 2 puff INHALATION Q4H PRN PRN 10/30/18 Baclofen 10 mg PO TID 10/30/18 Cholecalciferol (VIT D3) [Vitamin D3] 1,000 unit PO DAILY 10/30/18 Cranberry Conc/Ascorbic Acid [Cranberry Concentrate Softgel] 1 each PO BID 10/30/18 Diphenoxylate/Atrop [Lomotil] 1 tablet PO 4X/DAY PRN PRN 10/30/18 Gabapentin [Neurontin] 600 mg PO BID 10/30/18 Lisinopril [Zestril] 10 mg PO DAILY 10/30/18 Metformin HCl [Glucophage] 500 mg PO BID 10/30/18 Metoprolol(XL)Succ [Toprol Xl (Beta [place])] 25 mg PO DAILY 10/30/18 Multivitamins,Ther W-Minerals [Multivitamin With Minerals] 1 tablet PO 4X/DAY 10/30/18 Nystatin Powder [Mycostatin Powder] 1 applicatio TOPICAL BID PRN PRN 10/30/18 Oxybutynin Chloride [Ditropan Xl] 15 mg PO DAILY 10/30/18 Ranitidine [Zantac] 150 mg PO BID 10/30/18 Vitamin E 400 units PO BID 10/30/18 levETIRAcetam tablet [Keppra tablet] 500 mg PO QHS 10/30/18 Cyanocobalamin (Vitamin B-12) [B-12] 1,000 mcg PO DAILY 12/17/18 Pravastatin [Pravachol] 20 mg PO QHS 12/17/18 Venlafaxine HCl [Effexor] 150 mg PO BID 12/17/18 Duloxetine HCl 60 mg PO DAILY 03/22/19 Naproxen [Naprosyn] 500 mg PO BID PRN PRN 03/22/19 Ascorbic Acid [Vitamin C] 500 mg PO BID #180 cap 03/25/19 Meropenem [Merrem] 500 mg IV Q8 #30 vial 03/25/19 Methenamine Hippurate [Hiprex] 1 gm PO BID #180 tab 03/25/19 Vancomycin IV 1,500 mg IV Q24H 7 Days #7 vial 03/25/19 Diltiazem CD [Cardizem CD] 120 mg PO DAILY #30 capsule 03/26/19 Fluticasone 0.05% [Flonase Nasal [place]] 2 spray NASAL DAILY #1 nasal.sry 03/26/19 Potassium Chloride [K-Dur] 10 meq PO DAILYCM #30 tablet 03/26/19 The following prescriptions were given: Diltiazem CD [Cardizem CD] 120 mg PO DAILY #30 capsule Fluticasone 0.05% [Flonase Nasal [place]] 2 spray NASAL DAILY #1 nasal.sry Meropenem [Merrem] 500 mg IV Q8 #30 vial Potassium Chloride [K-Dur] 10 meq PO DAILYCM #30 tablet Vancomycin IV 1,500 mg IV Q24H 7 Days #7 vial Ascorbic Acid [Vitamin C] 500 mg PO BID #180 cap Methenamine Hippurate [Hiprex] 1 gm PO BID #180 tab Primary Care Physician: Noy Chakraborty MD [Primary Care Provider] - Please follow up with your Primary Care Physician in: 1 Week Test Results: Test results from this visit will be discussed in further detail at your follow- up appointment, if applicable. Please Follow Up With: denilson Rudolph, Urology When: 1 week Please Follow Up With: Wound Center When: 1 Week Proposed Discharge Date: 03/26/19
--- NOTE | 2019-03-26 10:23 | PCM.DC.SUM ---
<Latonya Ivy - Last Filed: 03/26/19 10:39> Discharge Date and Diagnosis Date of Admission: 03/22/19 Date of Discharge: 03/26/19 - Primary Discharge Diagnosis Active and Suspected Problems (Last Updated 03/22/19 @ 13:35 by Luís Collazo DO) 1. Sepsis secondary to acute suprapubic catheter associated complicated Pseudomonas UTI 2. SVT/atrial arrhythmia 3. Severe abdominal wall pannus excoriation with candidal intertrigo/left posterior thigh and sacral pressure ulcers 4. MICHAELLE on Chronic kidney disease stage III 5. Mild chronic hyponatremia 6. Chronic diastolic CHF 7. Hypertension 8. Hyperlipidemia 9. Type 2 diabetes mellitus 10. VITA 11. GERD 12. Depression 13. Super morbid obesity 14. Chronic normocytic anemia/anemia of chronic disease 15. Chronic Debility - Secondary Discharge Diagnosis Chronic Problems (Last Updated 03/22/19 @ 13:35 by Luís Collazo DO) Debility (Chronic) Depression (Chronic) VITA (obstructive sleep apnea) (Chronic) Hospital Course and Treatment Imaging Results: Diagnostic Data Chest X-Ray 03/22/19 09:52 IMPRESSION: Mild cardiomegaly. Electronically Signed: Joaquin Douglass, at 10:15 EDT , Service support , Consultations 03/22/19 14:02 Consult: Onc/Wound/supervisor quilting Routine Comment: Dr. Flores- ID Dr. Zavala- Urology Operations: None Procedures: None Summary of Care Provided: The patient is a 73 year old F admitted 03/22/2019 due to fever, chills. 1. Sepsis secondary to acute suprapubic catheter associated complicated Pseudomonas UTI- Patient has a history of multidrug-resistant cultures. Patient will Continue IV vancomycin for 7 days and IV meropenem for 10 days per ID recommendation. ID, Dr. Flores consulted during admission. Initial blood culture with enterococcus faecalis in 1/2 cultures. Suspect this may have been contaminant. Repeat blood cultures show no growth. Patient's home nitrofurantoin prophylactic regimen discontinued and she was placed on long-term Hiprex with vitamin C. Follow-up with primary care provider in 1 week. Follow-up with primary urologist within 1 week as well. Patient declined SNF at discharge, discharge home with home health services. Labs ordered by ID at discharge including weekly BMP, CBC, LFT and Vanco trough while on IV antibiotics. Vanc trough will need completed 03/29/19. 2. SVT/atrial arrhythmia-suspect secondary to #1. Patient previously received adenosine X1 with improvement in heart rate. Cardiology recommending discontinuing beta-blockers , continue Cardizem CD 120 mg daily. Otherwise, no further cardiac work-up. 3. Severe abdominal wall pannus excoriation with candidal intertrigo/left posterior thigh and sacral pressure ulcers-continue nystatin powder, absorbent dressing to reduce moisture. Recommend follow-up at wound center within 1 week for ongoing evaluation and treatment of skin issues. 4. MICHAELLE on Chronic kidney disease stage III-resolved. 5. Mild chronic hyponatremia-stable. 6. Chronic diastolic CHF-Echo October 2018 with EF 75%, stage I diastolic dysfunction. Lasix on hold during admission due to acute kidney injury. Resume Lasix regimen at discharge. 7. Hypertension-continue metoprolol, Lisinopril. 8. Hyperlipidemia-continue statin. 9. Type 2 diabetes mellitus-continue home oral regimen. 10. VITA-continue BiPAP regimen. 11. GERD-continue Protonix/Zantac. 12. Depression-continue home Cymbalta, Effexor regimen. 13. Super morbid obesity-encouraged diet lifestyle modifications. 14. Chronic normocytic anemia/anemia of chronic disease-at baseline. 15. Chronic Debility- Home with home health. Declined SNF. General: Alert, Oriented x3, Cooperative HEENT: Atraumatic, PERRLA, EOMI, Normocephalic Neck: Supple, No JVD, Negative Carotid Bruits Lungs: Clear to auscultation, Diminished Cardiovascular: Regular rate, Regular Rhythm, Normal S1, Normal S2, No murmurs Abdomen: Bowel Sounds Present, Soft, Non Tender, Non-Distended, Obese, - - Suprapubic catheter in place Extremities: No clubbing, No cyanosis, No edema, Capillary Refill Less than 3 Seconds Skin: - - Left posterior thigh and sacral pressure ulcers, present on admission. [place] intertrigo with significant excoriation. Musculoskeletal: No Tenderness to Palpation of Joints or Extremities Neurological: Cranial nerves II-XII grossly intact, Neuro grossly intact Psych/Mental Status: Normal Affect, Appropriate Patient seen and examined prior to discharge. Physical assessment as noted above. Patient is stable for discharge with follow up recommendations as noted above. This patient was seen by DEDRICK Simmons under the supervision of Dr. Collazo. - Physical Exam Vital Signs Temp Pulse Resp BP Pulse Ox 98.8 F 95 16 128/65 H 91 03/26/19 03:40 03/26/19 06:49 03/26/19 03:40 03/26/19 03:40 03/26/19 08:10 Oxygen Flow Rate (L/min) 2 Oxygen Delivery Method Venturi Mask Weight: 337 lb 4.916 oz Body Mass Index (BMI) 52.8 Intake and Output for Last 24 Hours 03/24/19 03/25/19 03/26/19 23:59 23:59 23:59 Intake Total 3927 / 3927 4000 / 4000 914 / 914 Output Total 1200 / 1200 2014 850 / 850 Balance 2727 / 2727 1984 / 1984 64 / 64 Microbiology Past 72 Hours 03/22/19 12:00 Urine Culture - Preliminary Urine Catheter - Catheter Pseudomonas aeroginosa 03/23/19 13:16 Blood Culture - Preliminary Blood Culture (Wb) - Left Hand No growth in 48 hours. 03/23/19 13:12 Blood Culture - Preliminary Blood Culture (Wb) - Right Hand No growth in 48 hours. 03/22/19 10:57 Bacteria Detection (PCR) - Final Blood Culture (Wb) - Other Enterococcus faecalis Blood Culture - Preliminary Enterococcus faecium 03/22/19 11:20 Blood Culture - Preliminary Blood Culture (Wb) - Anticubital Right No growth in 48 hours. Laboratory Tests Past 24 Hrs 03/26/19 03/26/19 05:35 05:35 WBC 8.3 RBC 3.29 L Hgb 9.1 L Hct 29.6 L MCV 90.0 MCH 27.7 MCHC 30.7 L RDW 16.8 H RDW Differential 53.6 H Plt Count 248 MPV 9.6 Sodium 136 Potassium 3.6 Chloride 105 Carbon Dioxide 24.0 Anion Gap 7 BUN 18 Creatinine 0.98 Estim Creat Clear Calc 50.46 Est GFR (MDRD) Af Amer 72 Est GFR (MDRD) Non-Af 59 L BUN/Creatinine Ratio 18.4 Glucose 108 H Calcium 8.2 L POC Glucose 03/26/19 03/25/19 03/25/19 06:28 21:42 16:44 POC Glucose 104 100 88 03/25/19 11:51 POC Glucose 94 Discharge Diet: Low fat/ Low Cholesterol, 1800 Calorie Control Diet, Carb Control Diet Discharge Activity: Return to Normal Activity Call your doctor if you observe: Fever of 101 or Higher, Shortness of breath, Dizziness, Fainting spells Home Medications: Medications to take at Discharge DiphenhydrAMINE [Benadryl] 25 mg PO BID PRN PRN 09/30/13 Furosemide [Lasix] 20 mg PO TID 09/30/13 Pantoprazole Sodium [Protonix] 40 mg PO DAILY 09/30/13 Albuterol Inhaler [Ventolin Hfa] 2 puff INHALATION Q4H PRN PRN 10/30/18 Baclofen 10 mg PO TID 10/30/18 Cholecalciferol (VIT D3) [Vitamin D3] 1,000 unit PO DAILY 10/30/18 Cranberry Conc/Ascorbic Acid [Cranberry Concentrate Softgel] 1 each PO BID 10/30/18 Diphenoxylate/Atrop [Lomotil] 1 tablet PO 4X/DAY PRN PRN 10/30/18 Gabapentin [Neurontin] 600 mg PO BID 10/30/18 Lisinopril [Zestril] 10 mg PO DAILY 10/30/18 Metformin HCl [Glucophage] 500 mg PO BID 10/30/18 Multivitamins,Ther W-Minerals [Multivitamin With Minerals] 1 tablet PO 4X/DAY 10/30/18 Nystatin Powder [Mycostatin Powder] 1 applicatio TOPICAL BID PRN PRN 10/30/18 Oxybutynin Chloride [Ditropan Xl] 15 mg PO DAILY 10/30/18 Ranitidine [Zantac] 150 mg PO BID 10/30/18 Vitamin E 400 units PO BID 10/30/18 levETIRAcetam tablet [Keppra tablet] 500 mg PO QHS 10/30/18 Cyanocobalamin (Vitamin B-12) [B-12] 1,000 mcg PO DAILY 12/17/18 Pravastatin [Pravachol] 20 mg PO QHS 12/17/18 Venlafaxine HCl [Effexor] 150 mg PO BID 12/17/18 Duloxetine HCl 60 mg PO DAILY 03/22/19 Naproxen [Naprosyn] 500 mg PO BID PRN PRN 03/22/19 Ascorbic Acid [Vitamin C] 500 mg PO BID #180 cap 03/25/19 Meropenem [Merrem] 500 mg IV Q8 #30 vial 03/25/19 Methenamine Hippurate [Hiprex] 1 gm PO BID #180 tab 03/25/19 Vancomycin IV 1,500 mg IV Q24H 7 Days #7 vial 03/25/19 Diltiazem CD [Cardizem CD] 120 mg PO DAILY #30 capsule 03/26/19 Fluticasone 0.05% [Flonase Nasal [place]] 2 spray NASAL DAILY #1 nasal.sry 03/26/19 Potassium Chloride [K-Dur] 10 meq PO DAILYCM #30 tablet 03/26/19 Following Prescrptions Were Given to Patient: Diltiazem CD [Cardizem CD] 120 mg PO DAILY #30 capsule Fluticasone 0.05% [Flonase Nasal [place]] 2 spray NASAL DAILY #1 nasal.sry Meropenem [Merrem] 500 mg IV Q8 #30 vial Potassium Chloride [K-Dur] 10 meq PO DAILYCM #30 tablet Vancomycin IV 1,500 mg IV Q24H 7 Days #7 vial Ascorbic Acid [Vitamin C] 500 mg PO BID #180 cap Methenamine Hippurate [Hiprex] 1 gm PO BID #180 tab Primary Care Physician: Noy Chakraborty MD [Primary Care Provider] - Please follow up with your Primary Care Physician in: 1 Week Please Follow Up With: denilson Rudolph, Urology When: 1 week Please Follow Up With: Wound Center When: 1 Week Disposition: Home with Home Health Minutes spent on discharge:: 35 Patient Condition:: Stable Medical Necessity - Tobacco Use Smoking Status: Never smoker Meaningful Use Info Meaningful Use Diagnoses (Choose all that apply): None applicable <Luís Collazo - Last Filed: 03/26/19 15:31> Discharge Date and Diagnosis - Secondary Discharge Diagnosis Chronic Problems (Last Reviewed 03/26/19 @ 14:49 by Rebecca Zavala MD) Debility (Chronic) Depression (Chronic) VITA (obstructive sleep apnea) (Chronic) Hospital Course and Treatment Consultations 03/22/19 14:02 Consult: Onc/Wound/supervisor quilting Routine Comment: Operations: None Procedures: None Summary of Care Provided: Patient seen and examined independently. Data reviewed. I agree with the above note by the nurse practitioner. 1. Severe Sepsis Present on arrival (not simply sepsis as was originally documented) Secondary to UTI + bacteremia supportive management 2. UTI Catheter associated as patient has a chronic suprapubic catheter after discussing with the patient, pa Culture growing out Pseudomonas, not checked for sensitivity to Zosyn, but sensitive Meropenem--will start today. ID on consult and recommend 10 days of meropenem, then to start methenamine 3. Bacteremia 1 of 2 + enterococcus repeat BCx today. may be source, though it is different organism from UTI per ID 7 days of IV meropenem 4. MICHAELLE resolved Likely prerenal, due to dehydration 5. Atrial arrhythmia: may have been atrial flutter. Beta-roopa stopped in lieu of diltiazem 120 daily. 6. Tian[place] intertrigo I do not appreciate any cellulitis but the rash underneath her pannus seems to be more consistent with [place] intertrigo Nystatin and continue to keep the area dry as best as possible She does have a skin tear on the left side, so we will have wound care come evaluate her. 7. Diabetes mellitus type 2: Metformin will be held Moderate dose sliding scale for the meantime 8. VTE prophylaxis: Lovenox. 9. Hand edema: not impressive on exam Reassurance provided. Explained that is likely due to IVF, infection/inflammation and protein malnutrition [] - Physical Exam General: Alert, No apparent distress HEENT: Atraumatic, Normocephalic Oral: Moist Mucosa, No Gingival or Mucosal Lesions/ Ulcerations Abdomen: Obese Vital Signs Temp Pulse Resp BP Pulse Ox 36.6 C 98 18 126/67 H 94 03/26/19 11:40 03/26/19 11:40 03/26/19 11:40 03/26/19 11:40 03/26/19 11:40 Oxygen Flow Rate (L/min) 2 Oxygen Delivery Method Nasal [place] Weight: 153 kg Body Mass Index (BMI) 52.8 Intake and Output for Last 24 Hours 03/24/19 03/25/19 03/26/19 23:59 23:59 23:59 Intake Total 3927 / 3927 4000 / 4000 1620 / 1620 Output Total 1200 / 1200 2014 1500 / 1500 Balance 2727 / 2727 1984 120 / 120 Microbiology Past 72 Hours 03/22/19 12:00 Urine Culture - Preliminary Urine Catheter - Catheter Pseudomonas aeroginosa 03/23/19 13:16 Blood Culture - Preliminary Blood Culture (Wb) - Left Hand No growth in 48 hours. 03/23/19 13:12 Blood Culture - Preliminary Blood Culture (Wb) - Right Hand No growth in 48 hours. 03/22/19 10:57 Bacteria Detection (PCR) - Final Blood Culture (Wb) - Other Enterococcus faecalis Blood Culture - Preliminary Enterococcus faecium 03/22/19 11:20 Blood Culture - Preliminary Blood Culture (Wb) - Anticubital Right No growth in 48 hours. Laboratory Tests Past 24 Hrs 03/26/19 03/26/19 05:35 05:35 WBC 8.3 RBC 3.29 L Hgb 9.1 L Hct 29.6 L MCV 90.0 MCH 27.7 MCHC 30.7 L RDW 16.8 H RDW Differential 53.6 H Plt Count 248 MPV 9.6 Sodium 136 Potassium 3.6 Chloride 105 Carbon Dioxide 24.0 Anion Gap 7 BUN 18 Creatinine 0.98 Estim Creat Clear Calc 50.46 Est GFR (MDRD) Af Amer 72 Est GFR (MDRD) Non-Af 59 L BUN/Creatinine Ratio 18.4 Glucose 108 H Calcium 8.2 L POC Glucose 03/26/19 03/26/19 03/25/19 11:16 06:28 21:42 POC Glucose 106 104 100 03/25/19 16:44 POC Glucose 88 Discharge Diet: Low fat/ Low Cholesterol, 1800 Calorie Control Diet, Carb Control Diet Discharge Activity: Return to Normal Activity Call your doctor if you observe: Fever of 101 or Higher, Shortness of breath, Dizziness, Fainting spells Disposition: Home with Home Health Patient Condition:: Stable Medical Necessity - Tobacco Use Smoking Status: Never smoker Meaningful Use Info Meaningful Use Diagnoses (Choose all that apply): None applicable Code Visit Inpatient E&M: 46700 Disch Hosp
--- NOTE | 2019-03-26 10:31 | DS.PCM_ITS ---
<Latonya Ivy - Last Filed: 03/26/19 10:39> Discharge Date and Diagnosis Date of Admission: 03/22/19 Date of Discharge: 03/26/19 - Primary Discharge Diagnosis Active and Suspected Problems (Last Updated 03/22/19 @ 13:35 by Luís Collazo DO) 1. Sepsis secondary to acute suprapubic catheter associated complicated Pseudomonas UTI 2. SVT/atrial arrhythmia 3. Severe abdominal wall pannus excoriation with candidal intertrigo/left posterior thigh and sacral pressure ulcers 4. MICHAELLE on Chronic kidney disease stage III 5. Mild chronic hyponatremia 6. Chronic diastolic CHF 7. Hypertension 8. Hyperlipidemia 9. Type 2 diabetes mellitus 10. VITA 11. GERD 12. Depression 13. Super morbid obesity 14. Chronic normocytic anemia/anemia of chronic disease 15. Chronic Debility - Secondary Discharge Diagnosis Chronic Problems (Last Updated 03/22/19 @ 13:35 by Luís Collazo DO) Debility (Chronic) Depression (Chronic) VITA (obstructive sleep apnea) (Chronic) Hospital Course and Treatment Imaging Results: Diagnostic Data Chest X-Ray 03/22/19 09:52 IMPRESSION: Mild cardiomegaly. Electronically Signed: Joaquin Douglass, at 10:15 EDT , Service support , Consultations 03/22/19 14:02 Consult: Onc/Wound/bulk sugar handler Routine Comment: Dr. Flores- ID Dr. Zavala- Urology Operations: None Procedures: None Summary of Care Provided: The patient is a 73 year old F admitted 03/22/2019 due to fever, chills. 1. Sepsis secondary to acute suprapubic catheter associated complicated Pseudomonas UTI- Patient has a history of multidrug-resistant cultures. Patient will Continue IV vancomycin for 7 days and IV meropenem for 10 days per ID recommendation. ID, Dr. Flores consulted during admission. Initial blood culture with enterococcus faecalis in 1/2 cultures. Suspect this may have been contaminant. Repeat blood cultures show no growth. Patient's home nitrofurantoin prophylactic regimen discontinued and she was placed on long-term Hiprex with vitamin C. Follow-up with primary care provider in 1 week. Follow- up with primary urologist within 1 week as well. Patient declined SNF at discharge, discharge home with home health services. Labs ordered by ID at discharge including weekly BMP, CBC, LFT and Vanco trough while on IV antibiotics. Vanc trough will need completed 03/29/19. 2. SVT/atrial arrhythmia-suspect secondary to #1. Patient previously received adenosine X1 with improvement in heart rate. Cardiology recommending discontinuing beta-blockers , continue Cardizem CD 120 mg daily. Otherwise, no further cardiac work-up. 3. Severe abdominal wall pannus excoriation with candidal intertrigo/left posterior thigh and sacral pressure ulcers-continue nystatin powder, absorbent dressing to reduce moisture. Recommend follow-up at wound center within 1 week for ongoing evaluation and treatment of skin issues. 4. MICHAELLE on Chronic kidney disease stage III-resolved. 5. Mild chronic hyponatremia-stable. 6. Chronic diastolic CHF-Echo October 2018 with EF 75%, stage I diastolic dysfunction. Lasix on hold during admission due to acute kidney injury. Resume Lasix regimen at discharge. 7. Hypertension-continue metoprolol, Lisinopril. 8. Hyperlipidemia-continue statin. 9. Type 2 diabetes mellitus-continue home oral regimen. 10. VITA-continue BiPAP regimen. 11. GERD-continue Protonix/Zantac. 12. Depression-continue home Cymbalta, Effexor regimen. 13. Super morbid obesity-encouraged diet lifestyle modifications. 14. Chronic normocytic anemia/anemia of chronic disease-at baseline. 15. Chronic Debility- Home with home health. Declined SNF. General: Alert, Oriented x3, Cooperative HEENT: Atraumatic, PERRLA, EOMI, Normocephalic Neck: Supple, No JVD, Negative Carotid Bruits Lungs: Clear to auscultation, Diminished Cardiovascular: Regular rate, Regular Rhythm, Normal S1, Normal S2, No murmurs Abdomen: Bowel Sounds Present, Soft, Non Tender, Non-Distended, Obese, - - Suprapubic catheter in place Extremities: No clubbing, No cyanosis, No edema, Capillary Refill Less than 3 Seconds Skin: - - Left posterior thigh and sacral pressure ulcers, present on admission. Tianna intertrigo with significant excoriation. Musculoskeletal: No Tenderness to Palpation of Joints or Extremities Neurological: Cranial nerves II-XII grossly intact, Neuro grossly intact Psych/Mental Status: Normal Affect, Appropriate Patient seen and examined prior to discharge. Physical assessment as noted above. Patient is stable for discharge with follow up recommendations as noted above. This patient was seen by DEDRICK Simmons under the supervision of Dr. Collazo. - Physical Exam Vital Signs Temp Pulse Resp BP Pulse Ox 98.8 F 95 16 128/65 H 91 03/26/19 03:40 03/26/19 06:49 03/26/19 03:40 03/26/19 03:40 03/26/19 08:10 Oxygen Flow Rate (L/min) 2 Oxygen Delivery Method Venturi Mask Weight: 337 lb 4.916 oz Body Mass Index (BMI) 52.8 Intake and Output for Last 24 Hours 03/24/19 03/25/19 03/26/19 23:59 23:59 23:59 Intake Total 3927 / 3927 4000 / 4000 914 / 914 Output Total 1200 / 1200 2014 850 / 850 Balance 2727 / 2727 1984 / 1984 64 / 64 Microbiology Past 72 Hours 03/22/19 12:00 Urine Culture - Preliminary Urine Catheter - Catheter Pseudomonas aeroginosa 03/23/19 13:16 Blood Culture - Preliminary Blood Culture (Wb) - Left Hand No growth in 48 hours. 03/23/19 13:12 Blood Culture - Preliminary Blood Culture (Wb) - Right Hand No growth in 48 hours. 03/22/19 10:57 Bacteria Detection (PCR) - Final Blood Culture (Wb) - Other Enterococcus faecalis Blood Culture - Preliminary Enterococcus faecium 03/22/19 11:20 Blood Culture - Preliminary Blood Culture (Wb) - Anticubital Right No growth in 48 hours. Laboratory Tests Past 24 Hrs 03/26/19 03/26/19 05:35 05:35 WBC 8.3 RBC 3.29 L Hgb 9.1 L Hct 29.6 L MCV 90.0 MCH 27.7 MCHC 30.7 L RDW 16.8 H RDW Differential 53.6 H Plt Count 248 MPV 9.6 Sodium 136 Potassium 3.6 Chloride 105 Carbon Dioxide 24.0 Anion Gap 7 BUN 18 Creatinine 0.98 Estim Creat Clear Calc 50.46 Est GFR (MDRD) Af Amer 72 Est GFR (MDRD) Non-Af 59 L BUN/Creatinine Ratio 18.4 Glucose 108 H Calcium 8.2 L POC Glucose 03/26/19 03/25/19 03/25/19 06:28 21:42 16:44 POC Glucose 104 100 88 03/25/19 11:51 POC Glucose 94 Discharge Diet: Low fat/ Low Cholesterol, 1800 Calorie Control Diet, Carb Control Diet Discharge Activity: Return to Normal Activity Call your doctor if you observe: Fever of 101 or Higher, Shortness of breath, Dizziness, Fainting spells Home Medications: Medications to take at Discharge DiphenhydrAMINE [Benadryl] 25 mg PO BID PRN PRN 09/30/13 Furosemide [Lasix] 20 mg PO TID 09/30/13 Pantoprazole Sodium [Protonix] 40 mg PO DAILY 09/30/13 Albuterol Inhaler [Ventolin Hfa] 2 puff INHALATION Q4H PRN PRN 10/30/18 Baclofen 10 mg PO TID 10/30/18 Cholecalciferol (VIT D3) [Vitamin D3] 1,000 unit PO DAILY 10/30/18 Cranberry Conc/Ascorbic Acid [Cranberry Concentrate Softgel] 1 each PO BID 10/30/18 Diphenoxylate/Atrop [Lomotil] 1 tablet PO 4X/DAY PRN PRN 10/30/18 Gabapentin [Neurontin] 600 mg PO BID 10/30/18 Lisinopril [Zestril] 10 mg PO DAILY 10/30/18 Metformin HCl [Glucophage] 500 mg PO BID 10/30/18 Multivitamins,Ther W-Minerals [Multivitamin With Minerals] 1 tablet PO 4X/DAY 10/30/18 Nystatin Powder [Mycostatin Powder] 1 applicatio TOPICAL BID PRN PRN 10/30/18 Oxybutynin Chloride [Ditropan Xl] 15 mg PO DAILY 10/30/18 Ranitidine [Zantac] 150 mg PO BID 10/30/18 Vitamin E 400 units PO BID 10/30/18 levETIRAcetam tablet [Keppra tablet] 500 mg PO QHS 10/30/18 Cyanocobalamin (Vitamin B-12) [B-12] 1,000 mcg PO DAILY 12/17/18 Pravastatin [Pravachol] 20 mg PO QHS 12/17/18 Venlafaxine HCl [Effexor] 150 mg PO BID 12/17/18 Duloxetine HCl 60 mg PO DAILY 03/22/19 Naproxen [Naprosyn] 500 mg PO BID PRN PRN 03/22/19 Ascorbic Acid [Vitamin C] 500 mg PO BID #180 cap 03/25/19 Meropenem [Merrem] 500 mg IV Q8 #30 vial 03/25/19 Methenamine Hippurate [Hiprex] 1 gm PO BID #180 tab 03/25/19 Vancomycin IV 1,500 mg IV Q24H 7 Days #7 vial 03/25/19 Diltiazem CD [Cardizem CD] 120 mg PO DAILY #30 capsule 03/26/19 Fluticasone 0.05% [Flonase Nasal [place]] 2 spray NASAL DAILY #1 nasal.sry 03/26/19 Potassium Chloride [K-Dur] 10 meq PO DAILYCM #30 tablet 03/26/19 Following Prescrptions Were Given to Patient: Diltiazem CD [Cardizem CD] 120 mg PO DAILY #30 capsule Fluticasone 0.05% [Flonase Nasal [place]] 2 spray NASAL DAILY #1 nasal.sry Meropenem [Merrem] 500 mg IV Q8 #30 vial Potassium Chloride [K-Dur] 10 meq PO DAILYCM #30 tablet Vancomycin IV 1,500 mg IV Q24H 7 Days #7 vial Ascorbic Acid [Vitamin C] 500 mg PO BID #180 cap Methenamine Hippurate [Hiprex] 1 gm PO BID #180 tab Primary Care Physician: Noy Chakraborty MD [Primary Care Provider] - Please follow up with your Primary Care Physician in: 1 Week Please Follow Up With: denilson Rudolph, Urology When: 1 week Please Follow Up With: Wound Center When: 1 Week Disposition: Home with Home Health Minutes spent on discharge:: 35 Patient Condition:: Stable Medical Necessity - Tobacco Use Smoking Status: Never smoker Meaningful Use Info Meaningful Use Diagnoses (Choose all that apply): None applicable <Luís Collazo - Last Filed: 03/26/19 15:31> Discharge Date and Diagnosis - Secondary Discharge Diagnosis Chronic Problems (Last Reviewed 03/26/19 @ 14:49 by Rebecca Zavala MD) Debility (Chronic) Depression (Chronic) VITA (obstructive sleep apnea) (Chronic) Hospital Course and Treatment Consultations 03/22/19 14:02 Consult: Onc/Wound/bulk sugar handler Routine Comment: Operations: None Procedures: None Summary of Care Provided: Patient seen and examined independently. Data reviewed. I agree with the above note by the nurse practitioner. 1. Severe Sepsis * Present on arrival (not simply sepsis as was originally documented) * Secondary to UTI + bacteremia * supportive management 2. UTI * Catheter associated as patient has a chronic suprapubic catheter after discu ssing with the patient, alivia * Culture growing out Pseudomonas, not checked for sensitivity to Zosyn, but sensitive Meropenem--will start today. * ID on consult and recommend 10 days of meropenem, then to start methenamine 3. Bacteremia * 1 of 2 + enterococcus * repeat BCx today. * may be source, though it is different organism from UTI * per ID 7 days of IV meropenem 4. MICHAELLE * resolved * Likely prerenal, due to dehydration 5. Atrial arrhythmia: * may have been atrial flutter. * Beta-roopa stopped in lieu of diltiazem 120 daily. 6. Tianna intertrigo * I do not appreciate any cellulitis but the rash underneath her pannus seems to be more consistent with Tianna intertrigo * Nystatin and continue to keep the area dry as best as possible * She does have a skin tear on the left side, so we will have wound care come evaluate her. 7. Diabetes mellitus type 2: * Metformin will be held * Moderate dose sliding scale for the meantime 8. VTE prophylaxis: Lovenox. 9. Hand edema: * not impressive on exam * Reassurance provided. Explained that is likely due to IVF, infection/inflammation and protein malnutrition [] - Physical Exam General: Alert, No apparent distress HEENT: Atraumatic, Normocephalic Oral: Moist Mucosa, No Gingival or Mucosal Lesions/ Ulcerations Abdomen: Obese Vital Signs Temp Pulse Resp BP Pulse Ox 36.6 C 98 18 126/67 H 94 03/26/19 11:40 03/26/19 11:40 03/26/19 11:40 03/26/19 11:40 03/26/19 11:40 Oxygen Flow Rate (L/min) 2 Oxygen Delivery Method Nasal Cannula Weight: 153 kg Body Mass Index (BMI) 52.8 Intake and Output for Last 24 Hours 03/24/19 03/25/19 03/26/19 23:59 23:59 23:59 Intake Total 3927 / 3927 4000 / 4000 1620 / 1620 Output Total 1200 / 1200 2014 1500 / 1500 Balance 2727 / 2727 1984 / 1984 120 / 120 Microbiology Past 72 Hours 03/22/19 12:00 Urine Culture - Preliminary Urine Catheter - Catheter Pseudomonas aeroginosa 03/23/19 13:16 Blood Culture - Preliminary Blood Culture (Wb) - Left Hand No growth in 48 hours. 03/23/19 13:12 Blood Culture - Preliminary Blood Culture (Wb) - Right Hand No growth in 48 hours. 03/22/19 10:57 Bacteria Detection (PCR) - Final Blood Culture (Wb) - Other Enterococcus faecalis Blood Culture - Preliminary Enterococcus faecium 03/22/19 11:20 Blood Culture - Preliminary Blood Culture (Wb) - Anticubital Right No growth in 48 hours. Laboratory Tests Past 24 Hrs 03/26/19 03/26/19 05:35 05:35 WBC 8.3 RBC 3.29 L Hgb 9.1 L Hct 29.6 L MCV 90.0 MCH 27.7 MCHC 30.7 L RDW 16.8 H RDW Differential 53.6 H Plt Count 248 MPV 9.6 Sodium 136 Potassium 3.6 Chloride 105 Carbon Dioxide 24.0 Anion Gap 7 BUN 18 Creatinine 0.98 Estim Creat Clear Calc 50.46 Est GFR (MDRD) Af Amer 72 Est GFR (MDRD) Non-Af 59 L BUN/Creatinine Ratio 18.4 Glucose 108 H Calcium 8.2 L POC Glucose 03/26/19 03/26/19 03/25/19 11:16 06:28 21:42 POC Glucose 106 104 100 03/25/19 16:44 POC Glucose 88 Discharge Diet: Low fat/ Low Cholesterol, 1800 Calorie Control Diet, Carb Control Diet Discharge Activity: Return to Normal Activity Call your doctor if you observe: Fever of 101 or Higher, Shortness of breath, Dizziness, Fainting spells Disposition: Home with Home Health Patient Condition:: Stable Medical Necessity - Tobacco Use Smoking Status: Never smoker Meaningful Use Info Meaningful Use Diagnoses (Choose all that apply): None applicable Code Visit Inpatient E&M: 50355 Disch Hosp
--- NOTE | 2019-03-26 10:45 | PCM.PN.ID ---
Subjective: Feeling better, no fever, c/o needing lasix. Some SOB and swelling. - Physical Exam General: Alert, Cooperative, No apparent distress Lungs: Clear to auscultation, Normal air movement, Diminished Cardiovascular: Regular rate, Regular Rhythm Abdomen: Soft, Non Tender, Non-Distended Skin: No rashes Vital Signs Temp Pulse Resp BP Pulse Ox 98.8 F 99 18 144/75 H 93 03/26/19 09:40 03/26/19 09:40 03/26/19 09:40 03/26/19 09:40 03/26/19 09:40 Oxygen Flow Rate (L/min) 2 Oxygen Delivery Method Nasal Cannula Weight: 153 kg Body Mass Index (BMI) 52.8 Intake and Output for Last 24 Hours 03/24/19 03/25/19 03/26/19 23:59 23:59 23:59 Intake Total 3927 / 3927 4000 / 4000 914 / 914 Output Total 1200 / 1200 2014 / 2014 850 / 850 Balance 2727 / 2727 1984 / 1984 64 / 64 Microbiology Past 72 Hours 03/22/19 12:00 Urine Culture - Preliminary Urine Catheter - Catheter Pseudomonas aeroginosa 03/23/19 13:16 Blood Culture - Preliminary Blood Culture (Wb) - Left Hand No growth in 48 hours. 03/23/19 13:12 Blood Culture - Preliminary Blood Culture (Wb) - Right Hand No growth in 48 hours. 03/22/19 10:57 Bacteria Detection (PCR) - Final Blood Culture (Wb) - Other Enterococcus faecalis Blood Culture - Preliminary Enterococcus faecium 03/22/19 11:20 Blood Culture - Preliminary Blood Culture (Wb) - Anticubital Right No growth in 48 hours. Laboratory Tests Past 24 Hrs 03/26/19 03/26/19 05:35 05:35 WBC 8.3 RBC 3.29 L Hgb 9.1 L Hct 29.6 L MCV 90.0 MCH 27.7 MCHC 30.7 L RDW 16.8 H RDW Differential 53.6 H Plt Count 248 MPV 9.6 Sodium 136 Potassium 3.6 Chloride 105 Carbon Dioxide 24.0 Anion Gap 7 BUN 18 Creatinine 0.98 Estim Creat Clear Calc 50.46 Est GFR (MDRD) Af Amer 72 Est GFR (MDRD) Non-Af 59 L BUN/Creatinine Ratio 18.4 Glucose 108 H Calcium 8.2 L POC Glucose 03/26/19 03/25/19 03/25/19 06:28 21:42 16:44 POC Glucose 104 100 88 03/25/19 11:51 POC Glucose 94 Medical Necessity - Tobacco Use Smoking Status: Never smoker Route of nutrition/ use of supplements: [] Nutritional Intake: [] IV Site: [] Henry Catheter: [] - Assessment/Plan Antibiotics: [] Assessment/Plan: [] Active and Suspected Problems (Last Updated 03/22/19 @ 13:35 by Luís Collazo DO) [place] intertrigo (Acute) Atrial arrhythmia (Acute) severe sepsis with MICHAELLE, lactic acidosis, fever, and tachycardia - much improved vitals and labs. Cr much better. It's not clear where this infection came from. Enterococcus is only in 1 of 2 bcx, not clear where this could have came from; no GI symptoms. UA with much less pyuria than is typical for her, and she has chronic PsA colonization. Abx do seem to be helping, so I think she will have to leave hospital on iv abx via picc. One week of vanc, 10 days of wenceslao, weekly bmp, cbc, lft, and vanc trough. urine colonization - start methenamine and vit C for [facility] proph. Stop nitrofurantoin. Will follow, d/w spring encaser and primary team. ID followup prn.
[2019-03-26] MEDS: Albuterol 2.5 MG/3 ML VIAL.NEB. INHALATION (10:53)
--- NOTE | 2019-03-26 10:57 | PHA.DC.COU ---
Addendum entered and electronically signed by Alyson Rutledge 03/26/19 10:58: DISCHARGE MEDICATION RECONCILIATION ALSO COMPLETED. Home Medications DiphenhydrAMINE [Benadryl] 25 mg PO BID PRN PRN 09/30/13 Furosemide [Lasix] 20 mg PO TID 09/30/13 Pantoprazole Sodium [Protonix] 40 mg PO DAILY 09/30/13 Albuterol Inhaler [Ventolin Hfa] 2 puff INHALATION Q4H PRN PRN 10/30/18 Baclofen 10 mg PO TID 10/30/18 Cholecalciferol (VIT D3) [Vitamin D3] 1,000 unit PO DAILY 10/30/18 Cranberry Conc/Ascorbic Acid [Cranberry Concentrate Softgel] 1 each PO BID 10/30/18 Diphenoxylate/Atrop [Lomotil] 1 tablet PO 4X/DAY PRN PRN 10/30/18 Gabapentin [Neurontin] 600 mg PO BID 10/30/18 Lisinopril [Zestril] 10 mg PO DAILY 10/30/18 Metformin HCl [Glucophage] 500 mg PO BID 10/30/18 Multivitamins,Ther W-Minerals [Multivitamin With Minerals] 1 tablet PO 4X/DAY 10/30/18 Nystatin Powder [Mycostatin Powder] 1 applicatio TOPICAL BID PRN PRN 10/30/18 Oxybutynin Chloride [Ditropan Xl] 15 mg PO DAILY 10/30/18 Ranitidine [Zantac] 150 mg PO BID 10/30/18 Vitamin E 400 units PO BID 10/30/18 levETIRAcetam tablet [Keppra tablet] 500 mg PO QHS 10/30/18 Cyanocobalamin (Vitamin B-12) [B-12] 1,000 mcg PO DAILY 12/17/18 Pravastatin [Pravachol] 20 mg PO QHS 12/17/18 Venlafaxine HCl [Effexor] 150 mg PO BID 12/17/18 Duloxetine HCl 60 mg PO DAILY 03/22/19 Naproxen [Naprosyn] 500 mg PO BID PRN PRN 03/22/19 Ascorbic Acid [Vitamin C] 500 mg PO BID #180 cap 03/25/19 Meropenem [Merrem] 500 mg IV Q8 #30 vial 03/25/19 Methenamine Hippurate [Hiprex] 1 gm PO BID #180 tab 03/25/19 Vancomycin IV 1,500 mg IV Q24H 7 Days #7 vial 03/25/19 Diltiazem CD [Cardizem CD] 120 mg PO DAILY #30 capsule 03/26/19 Fluticasone 0.05% [Flonase Nasal [place]] 2 spray NASAL DAILY #1 nasal.sry 03/26/19 Potassium Chloride [K-Dur] 10 meq PO DAILYCM #30 tablet 03/26/19 Original Note: Pharmacy Services has performed discharge medication counseling for this patient. The patient was counseled on the following discharge medications and changes in medications for homegoing review. 1. METHENAMINE 2. DILTIAZEM 3. POTASSIUM CHLORIDE 4. VITAMIN C The Reason for Use, instructions for use, and potential side effects were reviewed for all new medications. The patient's questions regarding all of their medications were answered. The patient was able to verbally demonstrate an understanding of their discharge medications.
[2019-03-26] MEDS: Furosemide 20 MG Tablet PO (11:18)
[2019-03-26 11:30] LABS: Bedside Glucose 106 mg/dL (70-110)
--- NOTE | 2019-03-26 14:19 | NURSING ---
Pt is being discharged to home today. sacral dressing was changed this am by car shifter nurse d/t incontinence. pt has a social media manager at home. Did discuss with patient that she should avoid sitting in her chair all day if she wants the pressure injury to heal.
--- NOTE | 2019-03-26 14:53 | CON.PCM_ITS ---
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 She has had the suprapubic tube in place for approximately 20 years. She follows with Dr. Rudolph at the [facility]. The suprapubic was last changed approximately 4 days ago. It is regularly changed by her home health nurse. It does leak, and she does have issues with urinary tract infections but this is monitored and treated by Dr. Rudolph. Currently she is admitted with septicemia with her blood cultures growing enterococcus and her urine being colonized with Pseudomonas. It is not looking like the urine is the source of her infection. Past Medical History Past Medical History (Chronic Problems): Chronic Problems (Last Updated 03/22/19 @ 13:35 by Luís Collazo DO) Debility (Chronic) Depression (Chronic) VITA (obstructive sleep apnea) (Chronic) Medical History: Medical History (Last Reviewed 03/26/19 @ 14:49 by Rebecca Zavala MD) DM2 (diabetes mellitus, type 2) E11.9 Debility R53.81 VITA (obstructive sleep apnea) G47.33 HTN (hypertension) I10 Allergies adhesive tape Allergy (Verified 02/28/19 22:06) blisters Influenza Virus Vaccines Allergy (Verified 02/28/19 22:06) shortness of breath/severe wheezing iron Allergy (Verified 02/28/19 22:06) from IV form chest pressure and heart palpitations Sulfa (Sulfonamide Antibiotics) Allergy (Verified 02/28/19 22:06) Shortness of breath bactrim does not work for her-per pcp paperwork meloxicam [From Mobic] Adverse Reaction (Verified 02/28/19 22:06) gi upset seasonal allergies Allergy (Uncoded 02/28/19 22:06) Other Home Medications: Ambulatory Orders Medication Instructions Recorded DiphenhydrAMINE [Benadryl] 25 mg PO BID PRN PRN 09/30/13 Furosemide [Lasix] 20 mg PO TID 09/30/13 Pantoprazole Sodium [Protonix] 40 mg PO DAILY 09/30/13 Albuterol Inhaler [Ventolin Hfa] 2 puff INHALATION Q4H PRN PRN 10/30/18 Baclofen 10 mg PO TID 10/30/18 Cholecalciferol (VIT D3) [Vitamin 1,000 unit PO DAILY 10/30/18 D3] Cranberry Conc/Ascorbic Acid 1 each PO BID 10/30/18 [Cranberry Concentrate Softgel] Diphenoxylate/Atrop [Lomotil] 1 tablet PO 4X/DAY PRN PRN 10/30/18 Gabapentin [Neurontin] 600 mg PO BID 10/30/18 Lisinopril [Zestril] 10 mg PO DAILY 10/30/18 Metformin HCl [Glucophage] 500 mg PO BID 10/30/18 Multivitamins,Ther W-Minerals 1 tablet PO 4X/DAY 10/30/18 [Multivitamin With Minerals] Nystatin Powder [Mycostatin Powder] 1 applicatio TOPICAL BID PRN PRN 10/30/18 Oxybutynin Chloride [Ditropan Xl] 15 mg PO DAILY 10/30/18 Ranitidine [Zantac] 150 mg PO BID 10/30/18 Vitamin E 400 units PO BID 10/30/18 levETIRAcetam tablet [Keppra 500 mg PO QHS 10/30/18 tablet] Cyanocobalamin (Vitamin B-12) 1,000 mcg PO DAILY 12/17/18 [B-12] Pravastatin [Pravachol] 20 mg PO QHS 12/17/18 Venlafaxine HCl [Effexor] 150 mg PO BID 12/17/18 Duloxetine HCl 60 mg PO DAILY 03/22/19 Naproxen [Naprosyn] 500 mg PO BID PRN PRN 03/22/19 Ascorbic Acid [Vitamin C] 500 mg PO BID #180 cap 03/25/19 Meropenem [Merrem] 500 mg IV Q8 #30 vial 03/25/19 Methenamine Hippurate [Hiprex] 1 gm PO BID #180 tab 03/25/19 Vancomycin IV 1,500 mg IV Q24H 7 Days #7 vial 03/25/19 Diltiazem CD [Cardizem CD] 120 mg PO DAILY #30 capsule 03/26/19 Fluticasone 0.05% [Flonase Nasal 2 spray NASAL DAILY #1 nasal.sry 03/26/19 Tatums] Potassium Chloride [K-Dur] 10 meq PO DAILYCM #30 tablet 03/26/19 Surgical History: cholecystectomy, hysterectomy Psychiatric History: Anxiety, Bipolar, Depression 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 FACULTY 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 History: No pertinent BIOLOGY 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 MEMBER history Smoking Status: Never smoker - *Family History Maternal History Items: Diabetes, Heart Disease - Her father had a CABG and CHF, Unknown Paternal History Items: Heart Disease, No pertinent history Review of Systems Constitutional: Denies: Weight Change Eyes: Denies: Vision Change Cardiovascular: Denies: Chest Pain Respiratory: Reports: Shortness of Breath Gastrointestinal: Denies: Abdominal Pain Genitourinary: Reports: Retention Neurological: Reports: - - unable to ambulate Patient Problems: Active and Suspected Problems (Last Updated 03/22/19 @ 13:35 by Luís Collazo DO) Urinary retention (Acute) - Physical Exam General: Alert, Oriented x3, Cooperative HEENT: Atraumatic, Normocephalic Oral: Moist Mucosa Neck: Supple Lungs: Short of Breath Abdomen: Soft, Obese, - - SPT site under large pannus. No sign of infection. The SPT is large, likely 22 or 24Fr. Urine is clear yellow in the tubing. Vital Signs Temp Pulse Resp BP Pulse Ox 97.8 F 98 18 126/67 H 94 03/26/19 11:40 03/26/19 11:40 03/26/19 11:40 03/26/19 11:40 03/26/19 11:40 Oxygen Flow Rate (L/min) 2 Oxygen Delivery Method Nasal Cannula Weight: 153 kg Body Mass Index (BMI) 52.8 Intake and Output for Last 24 Hours 03/24/19 03/25/19 03/26/19 23:59 23:59 23:59 Intake Total 3927 / 3927 4000 / 4000 1620 / 1620 Output Total 1200 / 1200 2014 1500 / 1500 Balance 2727 / 2727 1984 / 1984 120 / 120 Microbiology Past 72 Hours 03/22/19 12:00 Urine Culture - Preliminary Urine Catheter - Catheter Pseudomonas aeroginosa 03/23/19 13:16 Blood Culture - Preliminary Blood Culture (Wb) - Left Hand No growth in 48 hours. 03/23/19 13:12 Blood Culture - Preliminary Blood Culture (Wb) - Right Hand No growth in 48 hours. 03/22/19 10:57 Bacteria Detection (PCR) - Final Blood Culture (Wb) - Other Enterococcus faecalis Blood Culture - Preliminary Enterococcus faecium 03/22/19 11:20 Blood Culture - Preliminary Blood Culture (Wb) - Anticubital Right No growth in 48 hours. Laboratory Tests Past 24 Hrs 03/26/19 03/26/19 05:35 05:35 WBC 8.3 RBC 3.29 L Hgb 9.1 L Hct 29.6 L MCV 90.0 MCH 27.7 MCHC 30.7 L RDW 16.8 H RDW Differential 53.6 H Plt Count 248 MPV 9.6 Sodium 136 Potassium 3.6 Chloride 105 Carbon Dioxide 24.0 Anion Gap 7 BUN 18 Creatinine 0.98 Estim Creat Clear Calc 50.46 Est GFR (MDRD) Af Amer 72 Est GFR (MDRD) Non-Af 59 L BUN/Creatinine Ratio 18.4 Glucose 108 H Calcium 8.2 L POC Glucose 03/26/19 03/26/19 03/25/19 11:16 06:28 21:42 POC Glucose 106 104 100 03/25/19 16:44 POC Glucose 88 Assessment/Plan All Active Problems (Last Updated 03/22/19 @ 13:35 by Luís Collazo DO) Urinary retention (Acute) UTI (urinary tract infection) (Acute) Sepsis (Acute) MICHAELLE (acute kidney injury) (Acute) Candidal intertrigo (Acute) Atrial arrhythmia (Acute) Suprapubic catheter dysfunction (Resolved) Patient needs to continue current management of her SPT with from the [facility]. She has regular cystoscopy to follow her bladder health, and has an irrigation schedule that she follows with his instruction. There is no further change in care of the SPT to prevent colonization or frequent UTI's. She can follow up with him after discharge. Thank you for the consult.
--- NOTE | 2019-03-27 12:26 | CASEMGMT ---
TONI CM DC PHONE CALL DC DATE: 03/26/19 DC Disposition: Home with [facility] LACE/STRATA: 26/02 WC to f/u with pt re: home IV antibiotics. Alec CASHN RN ACM
== END 2019-03-26 15:25 | disposition home or self-care (01) | DRG 698 ==
LOC: ED 10:24 → MS3 13:00 → PCU 23:18 → MS3 03-25 08:31
PROVIDERS: Family Medicine; Nurse Practitioner Family; Emergency Provider Emergency Medicine; Family Provider Internal Medicine; PCP Internal Medicine
DX: T83.518A Infection and inflammatory reaction due to other urinary catheter, initial encounter (principal); A41.52 Sepsis due to Pseudomonas; R65.20 Severe sepsis without septic shock; N39.0 Urinary tract infection, site not specified; N17.9 Acute kidney failure, unspecified; E87.1 Hypo-osmolality and hyponatremia; I50.32 Chronic diastolic (congestive) heart failure; I13.0 Hypertensive heart and chronic kidney disease with heart failure and stage 1 through stage 4 chronic kidney disease, or unspecified chronic kidney disease; Z68.43 Body mass index [BMI] 50.0-59.9, adult; I47.1 Supraventricular tachycardia; B37.2 Candidiasis of skin and nail; N18.3 Chronic kidney disease, stage 3 (moderate); R53.81 Other malaise; K21.9 Gastro-esophageal reflux disease without esophagitis; G47.33 Obstructive sleep apnea (adult) (pediatric); E11.22 Type 2 diabetes mellitus with diabetic chronic kidney disease; D63.8 Anemia in other chronic diseases classified elsewhere; E66.01 Morbid (severe) obesity due to excess calories; E78.5 Hyperlipidemia, unspecified; L89.159 Pressure ulcer of sacral region, unspecified stage; L89.899 Pressure ulcer of other site, unspecified stage; S30.811A Abrasion of abdominal wall, initial encounter; E86.0 Dehydration
CPT/HCPCS: 36415; 36569; 71045; 80048; 80053; 80202; 81001; 82962; 83605; 83735; 85025; 85027; 85610; 85730; 87040; 87077; 87086; 87088; 87149; 87184; 87186; 93005; 94640; 97110; 97162; 97166; 97530; 97802; 99285; J2185; J7030; J7040; J7050; A4216; J0153

== ENCOUNTER 2019-03-29 09:11 | Outpatient (RCR) | payer MEDICARE, OTHER, SELFPAY ==
[2019-03-22 13:58] VITALS: BMI 52.8
[2019-03-29 09:43] LABS: Vancomycin, Trough Level 16.6 ug/mL (5.0-15.0)
[2019-04-01 11:29] LABS: Hemoglobin 9.1 g/dl (12.0-15.0); Mean Corp Hgb Conc 30.3 g/gl (32-36); Mean Corpuscular Hgb 27.4 pg (27.0-32.0); Mean Corpuscular Volume 90.4 fL (81-99); Mean Platelet Vol. 9.2 fl (6.2-12.0); Platelet Count 435 K/mm3 (150-450); RBC Distribution Width CV 17.5 % (11.6-14.6); RBC Distribution Width SD 57.4 fl (35.1-43.9); Red Blood Count 3.32 M/mm3 (4.2-5.4); White Blood Count 6.2 K/mm3 (4.4-11.0)
[2019-04-01 11:32] LABS: Scan Indicated on CBC? Y/N NO
[2019-04-01 14:42] LABS: AST(SGOT) 14 U/L (15-37); Alanine Aminotransfer ALT/SGPT 12 U/L (13-56); Albumin, Serum 2.4 g/dL (3.2-5.0); Alkaline Phosphatase 65 U/L (45-117); Anion Gap 5 (5-15); BUN 10 mg/dL (7-18); BUN/Creat Ratio 11.3 RATIO (10-20); Bilirubin, Direct 0.09 mg/dL (0.00-0.30); Calcium,Total 8.8 mg/dL (8.5-10.1); Chloride 105 mmol/L (98-107); Creatinine, Serum 0.89 mg/dL (0.55-1.02); EST Glomerular Filtration Rate 67 mL/min (>60); Est Glom Filt Rate - Afr Amer 81 mL/min (>60); Globulin 5.1 g/dL (2.2-4.2); Glucose 103 mg/dL (74-106); Potassium 3.7 mmol/L (3.5-5.1); Protein, Total 7.5 g/dL (6.4-8.2); Sodium Level 141 mmol/L (136-145)
[2019-04-01 15:50] LABS: Vancomycin, Trough Level 12.7 ug/mL (5.0-15.0)
== END 2019-04-12 23:59 ==
LOC: HHLAB 09:11
PROVIDERS: Family Provider Internal Medicine; PCP Internal Medicine; Visit Provider Internal Medicine Infectious Disease
DX: L03.311 Cellulitis of abdominal wall (principal)
CPT/HCPCS: 80048; 80076; 80202; 85027

== ENCOUNTER 2019-03-29 10:37 | Emergency (ER) | payer MEDICARE, OTHER, SELFPAY ==
[2019-03-22 13:58] VITALS: BMI 52.8
[2019-03-29 10:38] VITALS: BP 136/69; PULSE 89; RESP 16; TEMP 35.8; O2SAT 92; BMI 52.3
--- NOTE | 2019-03-29 11:02 | ED.VISSUMM ---
- ER Visit Summary Date of Service: 03/29/19 Chief Complaint: PICC line will not flush or draw History of Present Illness: The patient is a 73 F who presents with dysfunctional PICC line that was noticed yesterday. Patient states that she was able to use her PICC line for antibiotics yesterday morning. Yesterday afternoon when the nurse tried to access the PICC line for the antibiotics she was unable to flush or draw from the PICC line. Patient denies any swelling around the PICC line. Patient denies any chest pain or shortness of breath. Patient denies any nausea or vomiting. Patient denies any fevers or chills. Patient states she called the hospital and was told that they would not be able to evaluate her PICC line until after noon today. Patient was then told to come to the emergency department Physical Examination: Vital signs are stable. Patient is afebrile. Patient is in no acute distress. Oral mucosa is pink and moist. Neck is supple. Trachea is midline. No JVD noted. Extremities are intact. There is no edema around the PICC site. There is no erythema noted. There is no tenderness. Radial pulses are equal. Test Results: X-ray of the right humerus and chest x-ray shows that the PICC line is in place with the tip into the superior vena cava. Emergency Department Course and Treatment: Nursing biomedical engineering supervisor was consulted for evaluation of the PICC line. He administered 2 doses of alteplase. PICC line was still unable to be flushed. The PICC line access team will be consulted to come in and evaluate the patient for new PICC line. Disposition: [] Impression: Occluded PICC line This note was generated with [employer] dictation software. It may contain incorrect words, spelling, and punctuation that were not noted in review of the chart prior to signing ED Disposition - Plan for ED Patient: Disposition: Home or Assisted Living Diagnosis: Occluded PICC line Instructions: ED PICC Line Care Referrals: Noy Chakraborty MD [Primary Care Provider] - 5-7 Days
--- NOTE | 2019-03-29 11:05 | ED.DCSUM_ITS ---
- ER Visit Summary Date of Service: 03/29/19 Chief Complaint: PICC line will not flush or draw History of Present Illness: The patient is a 73 F who presents with dysfunctional PICC line that was noticed yesterday. Patient states that she was able to use her PICC line for antibiotics yesterday morning. Yesterday afternoon when the nurse tried to access the PICC line for the antibiotics she was unable to flush or draw from the PICC line. Patient denies any swelling around the PICC line. Patient denies any chest pain or shortness of breath. Patient denies any nausea or vomiting. Patient denies any fevers or chills. Patient states she called the hospital and was told that they would not be able to evaluate her PICC line until after noon today. Patient was then told to come to the emergency department Physical Examination: Vital signs are stable. Patient is afebrile. Patient is in no acute distress. Oral mucosa is pink and moist. Neck is supple. Trachea is midline. No JVD noted. Extremities are intact. There is no edema around the PICC site. There is no erythema noted. There is no tenderness. Radial pulses are equal. Test Results: X-ray of the right humerus and chest x-ray shows that the PICC line is in place with the tip into the superior vena cava. Emergency Department Course and Treatment: Nursing roundhouse supervisor was consulted for evaluation of the PICC line. He administered 2 doses of alteplase. PICC line was still unable to be flushed. The PICC line access team will be consulted to come in and evaluate the patient for new PICC line. Disposition: [] Impression: Occluded PICC line This note was generated with [employer] dictation software. It may contain incorrect words, spelling, and punctuation that were not noted in review of the chart prior to signing ED Disposition - Plan for ED Patient: Disposition: Home or Assisted Living Diagnosis: Occluded PICC line Instructions: ED PICC Line Care Referrals: Noy Chakraborty MD [Primary Care Provider] - 5-7 Days
[2019-03-29] MEDS: Alteplase 2 MG/2 ML Vial IV ×2 (12:20→16:00)
--- NOTE | 2019-03-29 14:16 | RAD_ITS ---
STUDY: X-RAY - RIGHT HUMERUS REASON FOR EXAM: Female, 73 years old. Nonfunctioning PICC line. TECHNIQUE: 2 view(s) of the humerus. COMPARISON: None. FINDINGS: Osteoarthritis of the shoulder joint. There is no demonstrated fracture or osseous destructive process. A PICC line is in situ. The hub is in the region of the antecubital fossa. RAD/Humerus min 2 Views IMPRESSION: Intact PICC line. Electronically Signed: Joaquin Douglass, at 15:21 EDT , Service support ,
--- NOTE | 2019-03-29 14:24 | RAD_ITS ---
STUDY: X-RAY CHEST REASON FOR EXAM: Female, 73 years old. Nonfunctioning PICC line. TECHNIQUE: Single AP portable view of the chest. COMPARISON: Comparison is made with prior examination dated March 22, 2019. FINDINGS: A right-sided PICC line catheter is seen with the tip in the midportion of the superior vena cava. Mild increased markings at the right lung base suggests left basilar atelectasis. There is no demonstrated pleural abnormality. Normal size heart. Normal mediastinum and peace. Normal visualized pulmonary arteries. There is atherosclerotic calcification of the aortic arch with tortuosity. There are diffuse degenerative changes of the visualized thoracic spine. Normal visualized ribs, clavicles, and shoulders. There is no demonstrated abnormality of the visualized soft tissue structures of the upper abdomen. RAD/Chest 1 View (Portable) IMPRESSION: The tip of the right PICC line catheter is in the midportion of the superior vena cava. Mild increased markings at the right lung base suggestive of atelectasis. Electronically Signed: Joaquin Douglass, at 15:20 EDT , Service support ,
[2019-03-29 15:35] VITALS: BP 156/87; PULSE 87; RESP 16; O2SAT 95
--- NOTE | 2019-03-29 17:47 | ED.RN ---
called returner for 2nd time for ETA, will arrive at approx [phone] tonight.
--- NOTE | 2019-03-29 21:09 | ED.RN ---
[facility] called to notify they will be here in 20-25 min.
--- NOTE | 2019-03-29 21:44 | ED.RN ---
SCIENTIFIC INFORMATICS LEADER IN ED
[2019-03-29 23:06] VITALS: BP 132/65; PULSE 70; RESP 16; O2SAT 97
--- NOTE | 2019-03-29 23:08 | ED.RN ---
pt very pleasant throughout day and at discharge. assisted to van and had ramp for electric w/c with family assisting
== END 2019-03-29 23:08 | disposition home or self-care (01) ==
PROVIDERS: Emergency Provider Emergency Medicine; Family Provider Internal Medicine; PCP Internal Medicine
DX: T82.898A Other specified complication of vascular prosthetic devices, implants and grafts, initial encounter (principal); N39.0 Urinary tract infection, site not specified; I25.10 Atherosclerotic heart disease of native coronary artery without angina pectoris; E66.9 Obesity, unspecified; Z68.43 Body mass index [BMI] 50.0-59.9, adult; Z79.899 Other long term (current) drug therapy; L03.311 Cellulitis of abdominal wall; T83.510D Infection and inflammatory reaction due to cystostomy catheter, subsequent encounter
CPT/HCPCS: 36569; 71045; 73060; 80202; 99282; J2997; A4216

== ENCOUNTER 2019-04-12 14:30 | Outpatient (RCR) | payer MEDICARE, OTHER, SELFPAY ==
[2019-03-22 13:58] VITALS: BMI 52.8
[2019-04-05 14:39] VITALS: BP 120/69; PULSE 83; RESP 18; TEMP 35.7; BMI 51.7
--- NOTE | 2019-04-05 18:33 | PCM.WC.HP ---
(1) Ulcer of abdomen wall with fat layer exposed Status: Chronic Current Visit: Yes Code(s): L98.492 - Non-pressure chronic ulcer of skin of other sites with fat layer exposed (2) Ulcer of left groin with fat layer exposed Status: Chronic Current Visit: Yes Code(s): L98.492 - Non-pressure chronic ulcer of skin of other sites with fat layer exposed (3) Debility Status: Chronic Current Visit: No Code(s): R53.81 - Other malaise (4) Depression Status: Chronic Current Visit: Yes Qualifiers: Depression Type: unspecified Code(s): F32.9 - Major depressive disorder, single episode, unspecified (5) Candidal intertrigo Status: Acute Current Visit: Yes Code(s): B37.2 - Candidiasis of skin and nail History of Present Illness Date of Service: 04/05/19 Chief Complaint: ulcers of left groin and abdomen History of Wound: Samra is a 73 yo woman who presents to the wound center for ulcers of left groin and abdomen referred by wound nurse at [facility]. She was recentlky hospitalized at [facility] for urosepsis. She was on IV antibiotics of Meropenem and Vancomycin. She is morbidly obese and has problems with candidal intertrigo and has ulcers that open frequently for several years. She was using towels to keep moisture from accumulating under her skin folds but this has been ineffective. She started using InstaDry sheets since discharge from the hospital which has improved the moisture in her folds. She has been using nystatin powder as well. SHe has been using bacitracin to the ulcer of her abdomen. She has an indwelling suprapubic catheter that is chaged monthly. She has heavy drainage from her ulcers. She is wheelchair bound and has an aid that helps her daily for a few hours per day. She denies fever or chills. Past Medical History Past Medical History: Chronic Problems (Last Reviewed 03/26/19 @ 14:49 by Rebecca Zavala MD) Ulcer of abdomen wall with fat layer exposed (Chronic) Ulcer of left groin with fat layer exposed (Chronic) Debility (Chronic) Depression (Chronic) VITA (obstructive sleep apnea) (Chronic) Surgical History: cholecystectomy, hysterectomy Allergies/Adverse Reactions: Allergies adhesive tape Allergy (Verified 03/29/19 10:42) blisters Influenza Virus Vaccines Allergy (Verified 03/29/19 10:42) shortness of breath/severe wheezing iron Allergy (Verified 03/29/19 10:42) from IV form chest pressure and heart palpitations Sulfa (Sulfonamide Antibiotics) Allergy (Verified 03/29/19 10:42) Shortness of breath bactrim does not work for her-per pcp paperwork meloxicam [From Mobic] Adverse Reaction (Verified 03/29/19 10:42) gi upset seasonal allergies Allergy (Uncoded 03/29/19 10:42) Other Home Medications: Ambulatory Orders Medication Instructions Recorded DiphenhydrAMINE [Benadryl] 25 mg PO BID PRN PRN 09/30/13 Furosemide [Lasix] 20 mg PO TID 09/30/13 Pantoprazole Sodium [Protonix] 40 mg PO DAILY 09/30/13 Albuterol Inhaler [Ventolin Hfa] 2 puff INHALATION Q4H PRN PRN 10/30/18 Baclofen 10 mg PO TID 10/30/18 Cholecalciferol (VIT D3) [Vitamin 1,000 unit PO DAILY 10/30/18 D3] Cranberry Conc/Ascorbic Acid 1 each PO BID 10/30/18 [Cranberry Concentrate Softgel] Diphenoxylate/Atrop [Lomotil] 1 tablet PO 4X/DAY PRN PRN 10/30/18 Gabapentin [Neurontin] 600 mg PO BID 10/30/18 Lisinopril [Zestril] 10 mg PO DAILY 10/30/18 Metformin HCl [Glucophage] 500 mg PO BID 10/30/18 Multivitamins,Ther W-Minerals 1 tablet PO 4X/DAY 10/30/18 [Multivitamin With Minerals] Nystatin Powder [Mycostatin Powder] 1 applicatio TOPICAL BID PRN PRN 10/30/18 Oxybutynin Chloride [Ditropan Xl] 15 mg PO DAILY 10/30/18 Vitamin E 400 units PO BID 10/30/18 levETIRAcetam tablet [Keppra 500 mg PO QHS 10/30/18 tablet] Cyanocobalamin (Vitamin B-12) 1,000 mcg PO DAILY 12/17/18 [B-12] Pravastatin [Pravachol] 20 mg PO QHS 12/17/18 Venlafaxine HCl [Effexor] 150 mg PO BID 12/17/18 Duloxetine HCl 60 mg PO DAILY 03/22/19 Naproxen [Naprosyn] 500 mg PO BID PRN PRN 03/22/19 Ascorbic Acid [Vitamin C] 500 mg PO BID #180 cap 03/25/19 Diltiazem CD [Cardizem CD] 120 mg PO DAILY #30 capsule 03/26/19 Fluticasone 0.05% [Flonase Nasal 2 spray NASAL DAILY #1 nasal.sry 03/26/19 [place]] Potassium Chloride [K-Dur] 10 meq PO DAILYCM #30 tablet 03/26/19 Methenamine Hippurate [Hiprex] 1 gm PO 04/05/19 - Family History Maternal Diabetes, Heart Disease - Her father had a CABG and CHF, Unknown Paternal Heart Disease, No pertinent history Lives: Alone Smoking Status: Former smoker Tobacco Use: Non-smoker Alcohol: None Drugs: None Review of Systems Constitutional: Denies: Chills, Fever, Weight Change Eyes: Denies: Pain, Vision Change HEENT: Denies: Difficulty Hearing, Difficulty Swallowing, Sinus Congestion Cardiovascular: Denies: Chest Pain, Palpitations Respiratory: Denies: Cough, Shortness of Breath Gastrointestinal: Denies: Diarrhea, Nausea, Vomiting Genitourinary: Denies: Dysuria, Hematuria Skin: Reports: Rash, Wounds Hematologic/ Lymphatic: Denies: Easy Bruising, Easy Bleeding - Physical Exam Vital Signs Temp Pulse Resp BP 96.2 F L 83 18 120/69 04/05/19 14:39 04/05/19 14:39 04/05/19 14:39 04/05/19 14:39 General: Alert, Oriented x3, Cooperative, No apparent distress HEENT: Atraumatic, Normocephalic Oral: Moist Mucosa Neck: Supple Lungs: Clear to auscultation Cardiovascular: Regular rate, Regular Rhythm Abdomen: Soft, Non Tender, Obese Extremities: Edema Skin: Ulcer/ Wound Wound Measurements and Assessment WC - Nurse 1 - General Ulcer Measurement Start: 04/05/19 14:39 Freq: Status: Active Protocol: Activity Type Activity Date Activity User E-Sign Co-Sign Detail Recorded Client Recorded Date Recorded By Document 04/05/19 14:39 MW [id number] 04/05/19 15:13 MW 04/05/19 14:39 Wound Center Nurse 1 [Ulcer Assessment] #2 Lower Mid Abd -Combined with other wound No -Current Size (cm) - Length 0.6 -Current Size (cm) - Width 1.0 -Current Size (cm) - Depth 0.1 -Total Square Cm 0.60 -Date of Last Picture (Recall this 04/05/19 field) -Photo Taken Yes -Epithelialization None Present -Tunneling No -Undermining/Tunneling No -Circular Undermining No -Exudate Amt None Present -Wound Margin Flat & Intact -Granulation Amt None Present (0 %) -Granulation Quality N/A -Slough/Fibrin Yes -Necrosis Amt Large (67-100%) -Necrotic Tissue Type Adherent Slough -Structure Exposed N/A -Texture (Jessica-wound Skin Appearance) Assessed Scarring -Moisture (Jessica-wound Skin Appearance Assessed ) Dry/Scaly -Color (Jessica-wound Skin Appearance) Assessed Erythema -Temperature (Jessica-wound Skin No Abnormality Appearance) (Pt Warm) -Tenderness on Palpation (Jessica-wound No Skin Appearance) -Ulcer Cleansing Rinsed/ Irrigated with Saline -Foul Odor after Cleansing No -Anesthetic Used 4% Lidocaine Solution #1 left abd fold cluster -Combined with other wound No -Current Size (cm) - Length 13.0 -Current Size (cm) - Width 18.0 -Current Size (cm) - Depth 0.1 -Total Square Cm 234.00 -Date of Last Picture (Recall this 04/05/19 field) -Photo Taken Yes -Epithelialization None Present -Tunneling No -Undermining/Tunneling No -Circular Undermining No -Exudate Amt Small -Exudate Type Serous -Wound Margin Flat & Intact -Granulation Amt Medium (34-66%) -Granulation Quality [place] -Slough/Fibrin Yes -Necrosis Amt Small (1-33%) -Necrotic Tissue Type Adherent Slough -Structure Exposed N/A -Texture (Jessica-wound Skin Appearance) Assessed Excoriation -Moisture (Jessica-wound Skin Appearance No Abnormality ) Assessed -Color (Jessica-wound Skin Appearance) Assessed Rubor -Temperature (Jessica-wound Skin No Abnormality Appearance) (Pt Warm) -Tenderness on Palpation (Jessica-wound No Skin Appearance) -Ulcer Cleansing soap and water -Foul Odor after Cleansing No -Anesthetic Used 4% Lidocaine Solution [Edema Assessment] -Lower Limb Edema Present No WC - Nurse 2 - General Ulcer CM Notes Start: 04/05/19 14:39 Freq: Status: Active Protocol: Activity Type Activity Date Activity User E-Sign Co-Sign Detail Recorded Client Recorded Date Recorded By Document 04/05/19 16:45 DV [id number] 04/05/19 17:03 DV 04/05/19 16:45 Wound Center Nurse 2 [Procedure/Treatment] #2 Lower Mid Abd -Time 16:47 -Correct Patient Yes -Correct Side, Site, Position Yes -Correct Procedure Yes -Procedure Performed Yes -Type of Procedure Debridement -Clinical Debridement Subcutaneous -Post Debridement Size (cm) - Length 0.5 -Post Debridement Size (cm) - Width 0.9 -Post Debridement Size (cm) - Depth 0.1 -Total Square Cm 0.45 -Wound/Ulcer Outcome Not Healed -Ulcer Cleansing Rinsed/ Irrigated with Saline -Foul Odor after Cleansing No -Bioengineered Tissue No -Bleeding Controlled with Pressure -Treatment Response Procedure Tolerated Well #1 left abd fold cluster -Time 16:51 -Correct Patient Yes -Correct Side, Site, Position Yes -Correct Procedure Yes -Procedure Performed Yes -Type of Procedure Debridement -Clinical Debridement Selective -Post Debridement Size (cm) - Length 13.0 -Post Debridement Size (cm) - Width 19.0 -Post Debridement Size (cm) - Depth 0.1 -Total Square Cm 247.00 -Wound/Ulcer Outcome Not Healed -Ulcer Cleansing Rinsed/ Irrigated with Saline -Foul Odor after Cleansing No -Bioengineered Tissue No -Bleeding Controlled with Pressure [See Physician Procedure note for Specifics] Pain Scale: 0-10 Numeric [Pain] -Is Patient Pain Free? Yes Psych/Mental Status: Normal Affect, Appropriate Debridement Note Post-Debridement Measurements/Treatment WC - Nurse 2 - General Ulcer CM Notes Start: 04/05/19 14:39 Freq: Status: Active Protocol: Activity Type Activity Date Activity User E-Sign Co-Sign Detail Recorded Client Recorded Date Recorded By Document 04/05/19 16:45 DV [id number] 04/05/19 17:03 DV 04/05/19 16:45 Wound Center Nurse 2 #2 Lower Mid Abd -Time 16:47 -Correct Patient Yes -Correct Side, Site, Position Yes -Correct Procedure Yes -Procedure Performed Yes -Type of Procedure Debridement -Clinical Debridement Subcutaneous -Post Debridement Size (cm) - Length 0.5 -Post Debridement Size (cm) - Width 0.9 -Post Debridement Size (cm) - Depth 0.1 -Total Square Cm 0.45 -Wound/Ulcer Outcome Not Healed -Ulcer Cleansing Rinsed/ Irrigated with Saline -Foul Odor after Cleansing No -Bioengineered Tissue No -Bleeding Controlled with Pressure -Treatment Response Procedure Tolerated Well #1 left abd fold cluster -Time 16:51 -Correct Patient Yes -Correct Side, Site, Position Yes -Correct Procedure Yes -Procedure Performed Yes -Type of Procedure Debridement -Clinical Debridement Selective -Post Debridement Size (cm) - Length 13.0 -Post Debridement Size (cm) - Width 19.0 -Post Debridement Size (cm) - Depth 0.1 -Total Square Cm 247.00 -Wound/Ulcer Outcome Not Healed -Ulcer Cleansing Rinsed/ Irrigated with Saline -Foul Odor after Cleansing No -Bioengineered Tissue No -Bleeding Controlled with Pressure Pain Scale: 0-10 Numeric Is Patient Pain Free? Yes Wound debrided: lower mid abdomen Laterality: Not Applicable Type of Debridement: Excisional debridement Anesthesia Used: 4% Lidocaine Solution, 5% Lidocaine Gel Depth: Down to and including healthy tissue, in the subcutaneous layer Percentage of wound debrided: 100 Instrument Used: 5mm curette Tissue Removed: yellow slough, devitalized tissue Severity: Fat Layer Exposed Amount of bleeding with debridement: Mild Bleeding Controlled with: Compression and gauze Patient tolerated procedure well - Additional Wound Wound debrided: left abdominal fold cluster Laterality: Left Type of Debridement: Excisional debridement Anesthesia Used: 4% Lidocaine Solution, 5% Lidocaine Gel Depth: Down to and including healthy tissue, in the subcutaneous layer Percentage of wound debrided: 100 Instrument Used: 5mm curette Tissue Removed: yellow slough, devitalized tissue Severity: Fat Layer Exposed Amount of bleeding with debridement: Mild Bleeding Controlled with: Compression and gauze Patient tolerated procedure: Patient tolerated procedure well Assessment/Plan Active Problems (Last Reviewed 03/26/19 @ 14:49 by Rebecca Zavala MD) Ulcer of abdomen wall with fat layer exposed (Chronic) Ulcer of left groin with fat layer exposed (Chronic) Depression (Chronic) Candidal intertrigo (Acute) Assessment: ulcers of left groin and mid abdomen Plan: Samra's ulcers were evaluated and debrided today. Will treat her with diflucan and will have her use Aquacel Ag to the ulcers of her left lower abdomen and instadry sache to her abdominal fold area to absorb moisture and prevent ulcers from developing due to the heavy drainage. Will have her use Rowan to her mid abdomen changed every other day for moderate drainage. Encouraged her to increase protein intake and offload the areas of her ulcers. Advised to call with any fever, chills, increased drainage. F/u in 1 week.
[2019-04-12 14:19] VITALS: BP 121/63; PULSE 94; RESP 20; TEMP 36.4; BMI 51.7
--- NOTE | 2019-04-12 17:03 | PCM.WC.PN ---
(1) Ulcer of abdomen wall with fat layer exposed Status: Chronic Current Visit: Yes Code(s): L98.492 - Non-pressure chronic ulcer of skin of other sites with fat layer exposed (2) Ulcer of left groin with fat layer exposed Status: Chronic Current Visit: Yes Code(s): L98.492 - Non-pressure chronic ulcer of skin of other sites with fat layer exposed (3) Debility Status: Chronic Current Visit: No Code(s): R53.81 - Other malaise (4) Depression Status: Chronic Current Visit: Yes Qualifiers: Depression Type: unspecified Code(s): F32.9 - Major depressive disorder, single episode, unspecified (5) Candidal intertrigo Status: Resolved Current Visit: Yes Code(s): B37.2 - Candidiasis of skin and nail Type of Wound Date of Service: 04/12/19 Chief Complaint: ulcers of left groin and abdomen History of Wound: Samra is a 73 yo woman who presents to the wound center for ulcers of left groin and abdomen referred by wound nurse at [facility]. She was recentlky hospitalized at [facility] for urosepsis. She was on IV antibiotics of Meropenem and Vancomycin. She is morbidly obese and has problems with candidal intertrigo and has ulcers that open frequently for several years. She was using towels to keep moisture from accumulating under her skin folds but this has been ineffective. She started using InstaDry sheets since discharge from the hospital which has improved the moisture in her folds. She has been using nystatin powder as well. SHe has been using bacitracin to the ulcer of her abdomen. She has an indwelling suprapubic catheter that is chaged monthly. She has heavy drainage from her ulcers. She is wheelchair bound and has an aid that helps her daily for a few hours per day. She denies fever or chills. Progress of Wound: Samra is here for follow up of ulcers of her abdomen and left groin and candidal intertrigo. She took Diflucan on Monday and has had improvement overall in her rash and itching. She is tolerating Aquacel dressings to left groin and continues to use Instadry strips to her groin area to wick away moisture. She has moderate to heavy drainage from the ulcers of her left groin. Her mid-abdomen ulcer is healed. She denies fever or chills or erythema or increased drainage from previous. - Physical Exam Vital Signs Temp Pulse Resp BP 97.5 F L 94 20 H 121/63 H 04/12/19 14:19 04/12/19 14:19 04/12/19 14:19 04/12/19 14:19 General: Alert, Oriented x3, Cooperative, No apparent distress HEENT: Atraumatic, Normocephalic Oral: Moist Mucosa Abdomen: Soft, Obese Skin: Ulcer/ Wound Wound Measurements and Assessment WC - Nurse 1 - General Ulcer Measurement Start: 04/05/19 14:39 Freq: Status: Active Protocol: Activity Type Activity Date Activity User E-Sign Co-Sign Detail Recorded Client Recorded Date Recorded By Document 04/12/19 14:19 [facility] [id number] 04/12/19 14:35 [facility] 04/12/19 14:19 Wound Center Nurse 1 [Ulcer Assessment] #2 Lower Mid Abd -Combined with other wound No -Current Size (cm) - Length 0.1 -Current Size (cm) - Width 0.2 -Current Size (cm) - Depth 0.1 -Total Square Cm 0.02 -Photo Taken No -Epithelialization Large 67-100% -Tunneling No -Undermining/Tunneling No -Circular Undermining No -Exudate Amt None Present -Wound Margin Flat & Intact -Granulation Amt Large (67-100%) -Granulation Quality Red -Slough/Fibrin No -Necrosis Amt None Present (0 %) -Structure Exposed None/Limited to Skin Breakdown -Texture (Jessica-wound Skin Appearance) Assessed Scarring -Moisture (Jessica-wound Skin Appearance Assessed ) Dry/Scaly -Color (Jessica-wound Skin Appearance) Assessed Erythema -Temperature (Jessica-wound Skin No Abnormality Appearance) (Pt Warm) -Tenderness on Palpation (Jessica-wound No Skin Appearance) -Ulcer Cleansing Rinsed/ Irrigated with Saline -Foul Odor after Cleansing No -Anesthetic Used 4% Lidocaine Solution #1 left abd fold cluster -Combined with other wound No -Current Size (cm) - Length 10.5 -Current Size (cm) - Width 21.7 -Current Size (cm) - Depth 0.1 -Total Square Cm 227.85 -Photo Taken No -Epithelialization None Present -Tunneling No -Undermining/Tunneling No -Circular Undermining No -Exudate Amt Small -Exudate Type Sanguineous -Wound Margin Flat & Intact -Granulation Amt Large (67-100%) -Granulation Quality Red -Slough/Fibrin No -Necrosis Amt None Present (0 %) -Texture (Jessica-wound Skin Appearance) Assessed Excoriation Scarring -Moisture (Jessica-wound Skin Appearance Assessed ) -Color (Jessica-wound Skin Appearance) Assessed Erythema -Temperature (Jessica-wound Skin No Abnormality Appearance) (Pt Warm) -Tenderness on Palpation (Jessica-wound No Skin Appearance) -Ulcer Cleansing Wound Cleanser -Foul Odor after Cleansing No -Anesthetic Used 4% Lidocaine Solution - Nurse 2 - General Ulcer CM Notes Start: 04/05/19 14:39 Freq: Status: Active Protocol: Activity Type Activity Date Activity User E-Sign Co-Sign Detail Recorded Client Recorded Date Recorded By Document 04/12/19 15:13 MW [id number] 04/12/19 15:21 MW 04/12/19 15:13 Wound Center Nurse 2 [Procedure/Treatment] #2 Lower Mid Abd -Time 15:15 -Correct Patient Yes -Correct Side, Site, Position Yes -Correct Procedure Yes -Procedure Performed No -Post Debridement Size (cm) - Length 0 -Post Debridement Size (cm) - Width 0 -Post Debridement Size (cm) - Depth 0 -Total Square Cm 0 -Wound/Ulcer Outcome Healed- Epithelialized #1 left abd fold cluster -Time 15:15 -Correct Patient Yes -Correct Side, Site, Position Yes -Correct Procedure Yes -Procedure Performed No -Wound/Ulcer Outcome Not Healed -Ulcer Cleansing Rinsed/ Irrigated with Saline -Foul Odor after Cleansing No -Bioengineered Tissue No -Bleeding Controlled with NA -Offloading No -Treatment Response Procedure Tolerated Well [See Physician Procedure note for Specifics] Pain Scale: 0-10 Numeric [Pain] -Is Patient Pain Free? Yes Psych/Mental Status: Normal Affect, Appropriate Debridement Note Post-Debridement Measurements/Treatment - Nurse 2 - General Ulcer CM Notes Start: 04/05/19 14:39 Freq: Status: Active Protocol: Activity Type Activity Date Activity User E-Sign Co-Sign Detail Recorded Client Recorded Date Recorded By Document 04/05/19 16:45 DV [id number] 04/05/19 17:03 DV Document 04/12/19 15:13 MW [id number] 04/12/19 15:21 MW 04/05/19 04/12/19 16:45 15:13 Wound Center Nurse 2 #2 Lower Mid Abd -Time 16:47 15:15 -Correct Patient Yes Yes -Correct Side, Site, Position Yes Yes -Correct Procedure Yes Yes -Procedure Performed Yes No -Type of Procedure Debridement -Clinical Debridement Subcutaneous -Post Debridement Size (cm) - Length 0.5 0 -Post Debridement Size (cm) - Width 0.9 0 -Post Debridement Size (cm) - Depth 0.1 0 -Total Square Cm 0.45 0 -Wound/Ulcer Outcome Not Healed Healed- Epithelialized -Ulcer Cleansing Rinsed/ Irrigated with Saline -Foul Odor after Cleansing No -Bioengineered Tissue No -Bleeding Controlled with Pressure -Treatment Response Procedure Tolerated Well #1 left abd fold cluster -Time 16:51 15:15 -Correct Patient Yes Yes -Correct Side, Site, Position Yes Yes -Correct Procedure Yes Yes -Procedure Performed Yes No -Type of Procedure Debridement -Clinical Debridement Selective -Post Debridement Size (cm) - Length 13.0 -Post Debridement Size (cm) - Width 19.0 -Post Debridement Size (cm) - Depth 0.1 -Total Square Cm 247.00 -Wound/Ulcer Outcome Not Healed Not Healed -Ulcer Cleansing Rinsed/ Rinsed/ Irrigated with Irrigated with Saline Saline -Foul Odor after Cleansing No No -Bioengineered Tissue No No -Bleeding Controlled with Pressure NA -Offloading No -Treatment Response Procedure Tolerated Well Pain Scale: 0-10 Numeric Is Patient Pain Free? Yes Yes Wound debrided: lower mid-abdomen Laterality: Not Applicable No debridement was completed today - due to the wound being healed - Additional Wound Wound debrided: Left groin cluster Laterality: Left Operative Diagnosis: No debridement completed due to no slough being present to debride Assessment/Plan Active Problems (Last Reviewed 03/26/19 @ 14:49 by Rebecca Zavala MD) Ulcer of abdomen wall with fat layer exposed (Chronic) Ulcer of left groin with fat layer exposed (Chronic) Depression (Chronic) Assessment: ulcers of left groin and mid abdomen Plan: Samra's ulcers were evaluated today. Her mid abdomen ulcer is healed. Her left groin cluster is improved and did not have any slough present and therefore wa snot debrided. Will have her repeat diflucan this week and will have her continue to use Aquacel Ag to the ulcers of her left lower abdomen and instadry sache to her abdominal fold area to absorb moisture and prevent ulcers from developing due to the heavy drainage. Encouraged her to increase protein intake and offload the areas of her ulcers. Advised to call with any fever, chills, increased drainage. F/u in 1 week.
--- NOTE | 2019-04-12 17:07 | PN.PCM_ITS ---
(1) Ulcer of abdomen wall with fat layer exposed Status: Chronic Current Visit: Yes Code(s): L98.492 - Non-pressure chronic ulcer of skin of other sites with fat layer exposed (2) Ulcer of left groin with fat layer exposed Status: Chronic Current Visit: Yes Code(s): L98.492 - Non-pressure chronic ulcer of skin of other sites with fat layer exposed (3) Debility Status: Chronic Current Visit: No Code(s): R53.81 - Other malaise (4) Depression Status: Chronic Current Visit: Yes Qualifiers: Depression Type: unspecified Code(s): F32.9 - Major depressive disorder, single episode, unspecified (5) Candidal intertrigo Status: Resolved Current Visit: Yes Code(s): B37.2 - Candidiasis of skin and nail Type of Wound Date of Service: 04/12/19 Chief Complaint: ulcers of left groin and abdomen History of Wound: Samra is a 73 yo woman who presents to the wound center for ulcers of left groin and abdomen referred by wound nurse at [facility] She was recentlky hospitalized at [facility] for urosepsis. She was on IV antibiotics of Meropenem and Vancomycin. She is morbidly obese and has problems with candidal intertrigo and has ulcers that open frequently for several years. She was using towels to keep moisture from accumulating under her skin folds but this has been ineffective. She started using InstaDry sheets since discharge from the hospital which has improved the moisture in her folds. She has been using nystatin powder as well. SHe has been using bacitracin to the ulcer of her abdomen. She has an indwelling suprapubic catheter that is chaged monthly. She has heavy drainage from her ulcers. She is wheelchair bound and has an aid that helps her daily for a few hours per day. She denies fever or chills. Progress of Wound: Samra is here for follow up of ulcers of her abdomen and left groin and candidal intertrigo. She took Diflucan on Monday and has had improvement overall in her rash and itching. She is tolerating Aquacel dressings to left groin and continues to use Instadry strips to her groin area to wick away moisture. She has moderate to heavy drainage from the ulcers of her left groin. Her mid-abdomen ulcer is healed. She denies fever or chills or erythema or increased drainage from previous. - Physical Exam Vital Signs Temp Pulse Resp BP 97.5 F L 94 20 H 121/63 H 04/12/19 14:19 04/12/19 14:19 04/12/19 14:19 04/12/19 14:19 General: Alert, Oriented x3, Cooperative, No apparent distress HEENT: Atraumatic, Normocephalic Oral: Moist Mucosa Abdomen: Soft, Obese Skin: Ulcer/ Wound Wound Measurements and Assessment WC - Nurse 1 - General Ulcer Measurement Start: 04/05/19 14:39 Freq: Status: Active Protocol: Activity Type Activity Date Activity User E-Sign Co-Sign Detail Recorded Client Recorded Date Recorded By Document 04/12/19 14:19 [facility] [id number] 04/12/19 14:35 [facility] 04/12/19 14:19 Wound Center Nurse 1 [Ulcer Assessment] #2 Lower Mid Abd -Combined with other wound No -Current Size (cm) - Length 0.1 -Current Size (cm) - Width 0.2 -Current Size (cm) - Depth 0.1 -Total Square Cm 0.02 -Photo Taken No -Epithelialization Large 67-100% -Tunneling No -Undermining/Tunneling No -Circular Undermining No -Exudate Amt None Present -Wound Margin Flat & Intact -Granulation Amt Large (67-100%) -Granulation Quality Red -Slough/Fibrin No -Necrosis Amt None Present (0 %) -Structure Exposed None/Limited to Skin Breakdown -Texture (Jessica-wound Skin Appearance) Assessed Scarring -Moisture (Jessica-wound Skin Appearance Assessed ) Dry/Scaly -Color (Jessica-wound Skin Appearance) Assessed Erythema -Temperature (Jessica-wound Skin No Abnormality Appearance) (Pt Warm) -Tenderness on Palpation (Jessica-wound No Skin Appearance) -Ulcer Cleansing Rinsed/ Irrigated with Saline -Foul Odor after Cleansing No -Anesthetic Used 4% Lidocaine Solution #1 left abd fold cluster -Combined with other wound No -Current Size (cm) - Length 10.5 -Current Size (cm) - Width 21.7 -Current Size (cm) - Depth 0.1 -Total Square Cm 227.85 -Photo Taken No -Epithelialization None Present -Tunneling No -Undermining/Tunneling No -Circular Undermining No -Exudate Amt Small -Exudate Type Sanguineous -Wound Margin Flat & Intact -Granulation Amt Large (67-100%) -Granulation Quality Red -Slough/Fibrin No -Necrosis Amt None Present (0 %) -Texture (Jessica-wound Skin Appearance) Assessed Excoriation Scarring -Moisture (Jessica-wound Skin Appearance Assessed ) -Color (Jessica-wound Skin Appearance) Assessed Erythema -Temperature (Jessica-wound Skin No Abnormality Appearance) (Pt Warm) -Tenderness on Palpation (Jessica-wound No Skin Appearance) -Ulcer Cleansing Wound Cleanser -Foul Odor after Cleansing No -Anesthetic Used 4% Lidocaine Solution - Nurse 2 - General Ulcer CM Notes Start: 04/05/19 14:39 Freq: Status: Active Protocol: Activity Type Activity Date Activity User E-Sign Co-Sign Detail Recorded Client Recorded Date Recorded By Document 04/12/19 15:13 MW [id number] 04/12/19 15:21 MW 04/12/19 15:13 Wound Center Nurse 2 [Procedure/Treatment] #2 Lower Mid Abd -Time 15:15 -Correct Patient Yes -Correct Side, Site, Position Yes -Correct Procedure Yes -Procedure Performed No -Post Debridement Size (cm) - Length 0 -Post Debridement Size (cm) - Width 0 -Post Debridement Size (cm) - Depth 0 -Total Square Cm 0 -Wound/Ulcer Outcome Healed- Epithelialized #1 left abd fold cluster -Time 15:15 -Correct Patient Yes -Correct Side, Site, Position Yes -Correct Procedure Yes -Procedure Performed No -Wound/Ulcer Outcome Not Healed -Ulcer Cleansing Rinsed/ Irrigated with Saline -Foul Odor after Cleansing No -Bioengineered Tissue No -Bleeding Controlled with NA -Offloading No -Treatment Response Procedure Tolerated Well [See Physician Procedure note for Specifics] Pain Scale: 0-10 Numeric [Pain] -Is Patient Pain Free? Yes Psych/Mental Status: Normal Affect, Appropriate Debridement Note Post-Debridement Measurements/Treatment - Nurse 2 - General Ulcer CM Notes Start: 04/05/19 14:39 Freq: Status: Active Protocol: Activity Type Activity Date Activity User E-Sign Co-Sign Detail Recorded Client Recorded Date Recorded By Document 04/05/19 16:45 DV [id number] 04/05/19 17:03 DV Document 04/12/19 15:13 MW [id number] 04/12/19 15:21 MW 04/05/19 04/12/19 16:45 15:13 Wound Center Nurse 2 #2 Lower Mid Abd -Time 16:47 15:15 -Correct Patient Yes Yes -Correct Side, Site, Position Yes Yes -Correct Procedure Yes Yes -Procedure Performed Yes No -Type of Procedure Debridement -Clinical Debridement Subcutaneous -Post Debridement Size (cm) - Length 0.5 0 -Post Debridement Size (cm) - Width 0.9 0 -Post Debridement Size (cm) - Depth 0.1 0 -Total Square Cm 0.45 0 -Wound/Ulcer Outcome Not Healed Healed- Epithelialized -Ulcer Cleansing Rinsed/ Irrigated with Saline -Foul Odor after Cleansing No -Bioengineered Tissue No -Bleeding Controlled with Pressure -Treatment Response Procedure Tolerated Well #1 left abd fold cluster -Time 16:51 15:15 -Correct Patient Yes Yes -Correct Side, Site, Position Yes Yes -Correct Procedure Yes Yes -Procedure Performed Yes No -Type of Procedure Debridement -Clinical Debridement Selective -Post Debridement Size (cm) - Length 13.0 -Post Debridement Size (cm) - Width 19.0 -Post Debridement Size (cm) - Depth 0.1 -Total Square Cm 247.00 -Wound/Ulcer Outcome Not Healed Not Healed -Ulcer Cleansing Rinsed/ Rinsed/ Irrigated with Irrigated with Saline Saline -Foul Odor after Cleansing No No -Bioengineered Tissue No No -Bleeding Controlled with Pressure NA -Offloading No -Treatment Response Procedure Tolerated Well Pain Scale: 0-10 Numeric Is Patient Pain Free? Yes Yes Wound debrided: lower mid-abdomen Laterality: Not Applicable No debridement was completed today - due to the wound being healed - Additional Wound Wound debrided: Left groin cluster Laterality: Left Operative Diagnosis: No debridement completed due to no slough being present to debride Assessment/Plan Active Problems (Last Reviewed 03/26/19 @ 14:49 by Rebecca Zavala MD) Ulcer of abdomen wall with fat layer exposed (Chronic) Ulcer of left groin with fat layer exposed (Chronic) Depression (Chronic) Assessment: ulcers of left groin and mid abdomen Plan: Samra's ulcers were evaluated today. Her mid abdomen ulcer is healed. Her left groin cluster is improved and did not have any slough present and therefore wa snot debrided. Will have her repeat diflucan this week and will have her continue to use Aquacel Ag to the ulcers of her left lower abdomen and instadry sache to her abdominal fold area to absorb moisture and prevent ulcers from developing due to the heavy drainage. Encouraged her to increase protein intake and offload the areas of her ulcers. Advised to call with any fever, chills, increased drainage. F/u in 1 week.
== END 2019-04-12 23:59 ==
LOC: WC 14:30
PROVIDERS: Family Provider Internal Medicine; PCP Internal Medicine; Visit Provider Family Medicine
DX: L98.492 Non-pressure chronic ulcer of skin of other sites with fat layer exposed (principal); E66.01 Morbid (severe) obesity due to excess calories; Z68.43 Body mass index [BMI] 50.0-59.9, adult; Z71.3 Dietary counseling and surveillance; B37.2 Candidiasis of skin and nail; L30.4 Erythema intertrigo; Z99.3 Dependence on wheelchair; G47.33 Obstructive sleep apnea (adult) (pediatric); Z87.891 Personal history of nicotine dependence
CPT/HCPCS: 11042; 11045; 99203; 99213; G0463

== ENCOUNTER 2019-05-03 13:30 | Outpatient (RCR) | payer MEDICARE, OTHER, SELFPAY ==
[2019-04-13 01:23] VITALS: BP 121/63; PULSE 94; RESP 20; TEMP 36.4
[2019-04-13 01:24] VITALS: BMI 52.8
[2019-04-19 14:11] VITALS: BP 122/57; PULSE 91; RESP 18; TEMP 36.6; BMI 52.8
--- NOTE | 2019-04-19 18:04 | PCM.WC.PN ---
(1) Ulcer of left groin with fat layer exposed Status: Chronic Current Visit: Yes Code(s): L98.492 - Non-pressure chronic ulcer of skin of other sites with fat layer exposed (2) Debility Status: Chronic Current Visit: Yes Code(s): R53.81 - Other malaise (3) Candidal intertrigo Status: Resolved Current Visit: Yes Code(s): B37.2 - Candidiasis of skin and nail Type of Wound Date of Service: 04/19/19 Chief Complaint: ulcers of left groin and abdomen History of Wound: Samra is a 73 yo woman who presents to the wound center for ulcers of left groin and abdomen referred by wound nurse at [facility]. She was recentlky hospitalized at [facility] for urosepsis. She was on IV antibiotics of Meropenem and Vancomycin. She is morbidly obese and has problems with candidal intertrigo and has ulcers that open frequently for several years. She was using towels to keep moisture from accumulating under her skin folds but this has been ineffective. She started using InstaDry sheets since discharge from the hospital which has improved the moisture in her folds. She has been using nystatin powder as well. SHe has been using bacitracin to the ulcer of her abdomen. She has an indwelling suprapubic catheter that is chaged monthly. She has heavy drainage from her ulcers. She is wheelchair bound and has an aid that helps her daily for a few hours per day. She denies fever or chills. Progress of Wound: Samra is here for follow up of ulcers of her left groin. She is tolerating Aquacel dressings to left groin and continues to use Instadry strips to her groin area to wick away moisture. She has moderate to heavy drainage from the ulcers of her left groin. Her mid-abdomen ulcer is healed. She denies fever or chills or erythema or increased drainage from previous. - Physical Exam Vital Signs Temp Pulse Resp BP 97.8 F 91 18 122/57 H 04/19/19 14:11 04/19/19 14:11 04/19/19 14:11 04/19/19 14:11 General: Alert, Oriented x3, Cooperative, No apparent distress HEENT: Atraumatic, Normocephalic Oral: Moist Mucosa Abdomen: Soft, Obese Skin: Ulcer/ Wound Wound Measurements and Assessment WC - Nurse 1 - General Ulcer Measurement Start: 04/19/19 14:11 Freq: Status: Active Protocol: Activity Type Activity Date Activity User E-Sign Co-Sign Detail Recorded Client Recorded Date Recorded By Document 04/19/19 14:11 RB [id number] 04/19/19 14:12 RB 04/19/19 14:11 Wound Center Nurse 1 [Ulcer Assessment] #1 left abd fold cluster -Combined with other wound No -Current Size (cm) - Length 1 -Current Size (cm) - Width 5 -Current Size (cm) - Depth 0.1 -Total Square Cm 5 -Tunneling No -Undermining/Tunneling No -Circular Undermining No -Exudate Amt Medium -Exudate Type Serosanguineous -Wound Margin Distinct, Outline Attached -Granulation Amt Large (67-100%) -Granulation Quality Red -Slough/Fibrin Yes -Necrosis Amt Small (1-33%) -Necrotic Tissue Type Adherent Slough -Structure Exposed N/A -Texture (Jessica-wound Skin Appearance) Assessed -Moisture (Jessica-wound Skin Appearance Assessed ) -Color (Jessica-wound Skin Appearance) Assessed -Temperature (Jessica-wound Skin No Abnormality Appearance) (Pt Warm) -Tenderness on Palpation (Jessica-wound No Skin Appearance) -Ulcer Cleansing Rinsed/ Irrigated with Saline -Foul Odor after Cleansing No -Anesthetic Used 4% Lidocaine Solution WC - Nurse 2 - General Ulcer CM Notes Start: 04/19/19 14:11 Freq: Status: Active Protocol: Activity Type Activity Date Activity User E-Sign Co-Sign Detail Recorded Client Recorded Date Recorded By Document 04/19/19 14:42 MANSI [id number] 04/19/19 14:45 DV 04/19/19 14:42 Wound Center Nurse 2 [Procedure/Treatment] -Time 14:44 -Correct Patient Yes -Correct Side, Site, Position Yes -Correct Procedure No -Procedure Performed No -Wound/Ulcer Outcome Not Healed [See Physician Procedure note for Specifics] Pain Scale: 0-10 Numeric [Pain] -Is Patient Pain Free? Yes Psych/Mental Status: Normal Affect, Appropriate Debridement Note Post-Debridement Measurements/Treatment WC - Nurse 2 - General Ulcer CM Notes Start: 04/19/19 14:11 Freq: Status: Active Protocol: Activity Type Activity Date Activity User E-Sign Co-Sign Detail Recorded Client Recorded Date Recorded By Document 04/19/19 14:42 DV [id number] 04/19/19 14:45 DV 04/19/19 14:42 Wound Center Nurse 2 #1 left abd fold cluster -Time 14:44 -Correct Patient Yes -Correct Side, Site, Position Yes -Correct Procedure No -Procedure Performed No -Wound/Ulcer Outcome Not Healed Pain Scale: 0-10 Numeric Is Patient Pain Free? Yes Wound debrided: left abdominal cluster Laterality: Left No debridement was completed today - due to no presence of slough Assessment/Plan Active Problems (Last Reviewed 03/26/19 @ 14:49 by Rebecca Zavala MD) Ulcer of left groin with fat layer exposed (Chronic) Debility (Chronic) Assessment: ulcers of left groin and mid abdomen Plan: Samra's ulcers were evaluated today. Her left groin cluster is improved and did not have any slough present and therefore was not debrided. Will have her continue to use Aquacel Ag to the ulcers of her left lower abdomen and instadry sache to her abdominal fold area to absorb moisture and prevent ulcers from developing due to the heavy drainage. Encouraged her to increase protein intake and offload the areas of her ulcers. Advised to call with any fever, chills, increased drainage. F/u in 1 week.
[2019-05-03 13:40] VITALS: BP 116/62; PULSE 91; RESP 16; TEMP 36; BMI 52.8
--- NOTE | 2019-05-03 14:43 | PN.PCM_ITS ---
(1) Ulcer of left groin with fat layer exposed Status: Chronic Code(s): L98.492 - Non-pressure chronic ulcer of skin of other sites with fat layer exposed (2) Debility Status: Chronic Code(s): R53.81 - Other malaise (3) Candidal intertrigo Status: Chronic Code(s): B37.2 - Candidiasis of skin and nail Type of Wound Date of Service: 05/03/19 Chief Complaint: ulcers of left groin and abdomen History of Wound: Samra is a 73 yo woman who presents to the wound center for ulcers of left groin and abdomen referred by wound nurse at [facility]. She was recentlky hospitalized at [facility] for urosepsis. She was on IV antibiotics of Meropenem and Vancomycin. She is morbidly obese and has problems with candidal intertrigo and has ulcers that open frequently for several years. She was using towels to keep moisture from accumulating under her skin folds but this has been ineffective. She started using InstaDry sheets since discharge from the hospital which has improved the moisture in her folds. She has been using nystatin powder as well. SHe has been using bacitracin to the ulcer of her abdomen. She has an indwelling suprapubic catheter that is chaged monthly. She has heavy drainage from her ulcers. She is wheelchair bound and has an aid that helps her daily for a few hours per day. She denies fever or chills. Progress of Wound: Samra is here for follow up of ulcers of her left groin. She is tolerating Aquacel dressings to left groin and continues to use Interdry strips to her groin area to wick away moisture. She has had increased erythema and odor consistent with yeast. She has moderate to heavy drainage from the ulcers of her left groin. Her mid-abdomen ulcer remains healed. She denies fever or chills or erythema or increased drainage from previous. - Physical Exam Vital Signs Temp Pulse Resp BP 96.8 F L 91 16 116/62 05/03/19 13:40 05/03/19 13:40 05/03/19 13:40 05/03/19 13:40 General: Alert, Oriented x3, Cooperative, No apparent distress HEENT: Atraumatic, Normocephalic Oral: Moist Mucosa Neck: Supple Abdomen: Obese Extremities: Edema Skin: Ulcer/ Wound Wound Measurements and Assessment WC - Nurse 1 - General Ulcer Measurement Start: 04/19/19 14:11 Freq: Status: Active Protocol: Activity Type Activity Date Activity User E-Sign Co-Sign Detail Recorded Client Recorded Date Recorded By Document 05/03/19 13:40 [facility] [id number] 05/03/19 13:49 [facility] 05/03/19 13:40 Wound Center Nurse 1 [Ulcer Assessment] #1 left abd fold cluster -Combined with other wound No -Current Size (cm) - Length 1.5 -Current Size (cm) - Width 3.9 -Current Size (cm) - Depth 0.2 -Total Square Cm 5.85 -Photo Taken No -Epithelialization None Present -Tunneling No -Undermining/Tunneling No -Circular Undermining No -Exudate Amt Medium -Exudate Type Serosanguineous -Wound Margin Distinct, Outline Attached -Granulation Amt Medium (34-66%) -Granulation Quality Red -Slough/Fibrin Yes -Necrosis Amt Small (1-33%) -Necrotic Tissue Type Adherent Slough -Texture (Jessica-wound Skin Appearance) Assessed, Excoriation, Scarring,Rash -Moisture (Jessica-wound Skin Appearance Assessed ) -Color (Jessica-wound Skin Appearance) Assessed, Erythema -Temperature (Jessica-wound Skin No Abnormality Appearance) (Pt Warm) -Tenderness on Palpation (Jessica-wound No Skin Appearance) -Foul Odor after Cleansing No -Anesthetic Used 4% Lidocaine Solution - Nurse 2 - General Ulcer CM Notes Start: 04/19/19 14:11 Freq: Status: Active Protocol: Activity Type Activity Date Activity User E-Sign Co-Sign Detail Recorded Client Recorded Date Recorded By Document 05/03/19 14:21 [id number] 05/03/19 14:23 AN 05/03/19 14:21 Wound Center Nurse 2 [Procedure/Treatment] -Time 14:22 -Correct Patient Yes -Correct Side, Site, Position Yes -Correct Procedure Yes -Procedure Performed No -Post Debridement Size (cm) - Length 1.5 -Post Debridement Size (cm) - Width 3.0 -Post Debridement Size (cm) - Depth 0.2 -Total Square Cm 4.50 -Wound/Ulcer Outcome Not Healed -Ulcer Cleansing Rinsed/ Irrigated with Saline -Foul Odor after Cleansing No -Bioengineered Tissue No -Treatment Response Procedure Tolerated Well [See Physician Procedure note for Specifics] Pain Scale: 0-10 Numeric [Pain] -Is Patient Pain Free? Yes Psych/Mental Status: Normal Affect, Appropriate Debridement Note Post-Debridement Measurements/Treatment WC - Nurse 2 - General Ulcer CM Notes Start: 04/19/19 14:11 Freq: Status: Active Protocol: Activity Type Activity Date Activity User E-Sign Co-Sign Detail Recorded Client Recorded Date Recorded By Document 04/19/19 14:42 DV [id number] 04/19/19 14:45 DV Document 05/03/19 14:21 AN [id number] 05/03/19 14:23 AN 04/19/19 05/03/19 14:42 14:21 Wound Center Nurse 2 #1 left abd fold cluster -Time 14:44 14:22 -Correct Patient Yes Yes -Correct Side, Site, Position Yes Yes -Correct Procedure No Yes -Procedure Performed No No -Post Debridement Size (cm) - Length 1.5 -Post Debridement Size (cm) - Width 3.0 -Post Debridement Size (cm) - Depth 0.2 -Total Square Cm 4.50 -Wound/Ulcer Outcome Not Healed Not Healed -Ulcer Cleansing Rinsed/ Irrigated with Saline -Foul Odor after Cleansing No -Bioengineered Tissue No -Treatment Response Procedure Tolerated Well Pain Scale: 0-10 Numeric Is Patient Pain Free? Yes Yes Wound debrided: left abdominal fold cluster Laterality: Left Type of Debridement: Excisional debridement Anesthesia Used: 4% Lidocaine Solution Depth: Down to and including healthy tissue, in the subcutaneous layer Percentage of wound debrided: 100 Instrument Used: 5mm curette Tissue Removed: yellow slough, devitalized tissue Severity: Fat Layer Exposed Amount of bleeding with debridement: Mild Bleeding Controlled with: Compression and gauze Patient tolerated procedure well Assessment/Plan Assessment: ulcers of left groin. morbid obesity. Candidal intertrigo Plan: Samra's ulcers were evaluated today. Her left groin cluster is relatively unchanged and did not have any slough present and therefore was not debrided. Will have her continue to use Aquacel Ag to the ulcers of her left lower abdomen and interdry sache to her abdominal fold area to absorb moisture and prevent ulcers from developing due to the heavy drainage. Diflucan prescribed to treat candidal intertrigo. Will have her take this weekly to every other week during the summer due to sweating and heat and her body habitus and chronic yeast which are causing her to develop ulcers. Encouraged her to increase protein intake and offload the areas of her ulcers. Advised to call with any fever, chills, increased drainage. F/u in 1 week.
== END 2019-05-12 23:59 ==
LOC: WC 13:30
PROVIDERS: Family Provider Internal Medicine; PCP Internal Medicine; Visit Provider Family Medicine
DX: L98.492 Non-pressure chronic ulcer of skin of other sites with fat layer exposed (principal); B37.2 Candidiasis of skin and nail; L30.4 Erythema intertrigo; E66.01 Morbid (severe) obesity due to excess calories; Z68.43 Body mass index [BMI] 50.0-59.9, adult; Z71.3 Dietary counseling and surveillance; Z99.3 Dependence on wheelchair
CPT/HCPCS: 99212; 99213; G0463

== ENCOUNTER 2019-06-07 13:00 | Outpatient (RCR) | payer MEDICARE, OTHER, SELFPAY ==
[2019-05-13 00:56] VITALS: BP 116/62; PULSE 91; RESP 16; TEMP 36
[2019-05-17 15:01] VITALS: BP 126/61; PULSE 85; RESP 18; TEMP 36.3; BMI 52.8
--- NOTE | 2019-05-17 19:13 | PCM.WC.PN ---
(1) Pressure ulcer of coccygeal region, stage 3 Status: Chronic Current Visit: Yes Code(s): L89.153 - Pressure ulcer of sacral region, stage 3 (2) Ulcer of left groin with fat layer exposed Status: Chronic Current Visit: Yes Code(s): L98.492 - Non-pressure chronic ulcer of skin of other sites with fat layer exposed (3) Candidal intertrigo Status: Chronic Current Visit: Yes Code(s): B37.2 - Candidiasis of skin and nail Type of Wound Date of Service: 05/17/19 Chief Complaint: ulcers of left groin and abdomen, pressure ulcer of coccyx History of Wound: Samra is a 73 yo woman who presents to the wound center for ulcers of left groin and abdomen referred by wound nurse at [facility]. She was recently hospitalized at [facility] for urosepsis. She was on IV antibiotics of Meropenem and Vancomycin. She is morbidly obese and has problems with candidal intertrigo and has ulcers that open frequently for several years. She was using towels to keep moisture from accumulating under her skin folds but this has been ineffective. She started using InstaDry sheets since discharge from the hospital which has improved the moisture in her folds. She has been using nystatin powder as well. SHe has been using bacitracin to the ulcer of her abdomen. She has an indwelling suprapubic catheter that is changed monthly. She has heavy drainage from her ulcers. She is wheelchair bound and has an aid that helps her daily for a few hours per day. She denies fever or chills. In May 2019, she reports that she has a chronic ulcer of her coccyx area that was previously surgically debrided that comes and goes and has gotten worse since she was in the retirement in early 2018. Progress of Wound: Samra is here for follow up of ulcers of her left groin. She is tolerating Aquacel dressings to left groin and continues to use Interdry strips to her groin area to wick away moisture. She continues to have increased erythema and odor consistent with yeast. She has moderate to heavy drainage from the ulcers of her left groin. She reports having a chronic coccyx ulcer that was treated with wound vac and medihoney in the past that has opened and worsened since she was in the retirement earlier this year. Her caregiver has been packing it with gauze dialy. Her mid-abdomen ulcer remains healed. She denies fever or chills or erythema or increased drainage from previous. - Physical Exam Vital Signs Temp Pulse Resp BP 97.3 F L 85 18 126/61 H 05/17/19 15:01 05/17/19 15:01 05/17/19 15:01 05/17/19 15:01 General: Alert, Oriented x3, Cooperative, No apparent distress HEENT: Atraumatic, Normocephalic Oral: Moist Mucosa Abdomen: Obese Extremities: Edema Skin: Ulcer/ Wound, Rash Present Wound Measurements and Assessment WC - Nurse 1 - General Ulcer Measurement Start: 05/17/19 15:01 Freq: Status: Active Protocol: Activity Type Activity Date Activity User E-Sign Co-Sign Detail Recorded Client Recorded Date Recorded By Document 05/17/19 15:01 [facility] [id number] 05/17/19 15:06 [facility] 05/17/19 15:01 Wound Center Nurse 1 [Ulcer Assessment] #3 Coccyx -Combined with other wound No -Current Size (cm) - Length 1.4 -Current Size (cm) - Width 1.5 -Current Size (cm) - Depth 0.5 -Total Square Cm 2.10 -Photo Taken Yes -Epithelialization None Present -Tunneling No -Undermining/Tunneling No -Circular Undermining No -Classification - Thickness Full Thickness without Exposed Support Structure -Classification - Pressure Ulcer Stage 3 -Exudate Amt Large -Exudate Type Serosanguineous -Wound Margin Indistinct, Non -Visible -Granulation Amt None Present (0 %) -Slough/Fibrin Yes -Necrosis Amt Large (67-100%) -Necrotic Tissue Type Adherent Slough -Structure Exposed Fat Layer Exposed,None/ Limited to Skin Breakdown -Texture (Jessica-wound Skin Appearance) Assessed, Scarring -Moisture (Jessica-wound Skin Appearance Assessed, ) Weeping -Color (Jessica-wound Skin Appearance) Assessed, Erythema -Temperature (Jessica-wound Skin No Abnormality Appearance) (Pt Warm) -Tenderness on Palpation (Jessica-wound Yes Skin Appearance) -Foul Odor after Cleansing No -Anesthetic Used 5% Lidocaine Gel #1 left abd fold cluster -Combined with other wound No -Current Size (cm) - Length 9.5 -Current Size (cm) - Width 8.5 -Current Size (cm) - Depth 0.1 -Total Square Cm 80.75 -Photo Taken No -Tunneling No -Undermining/Tunneling No -Circular Undermining No -Exudate Amt Medium -Exudate Type Serosanguineous -Wound Margin Flat & Intact -Granulation Amt Large (67-100%) -Granulation Quality Red -Slough/Fibrin No -Necrosis Amt None Present (0 %) -Texture (Jessica-wound Skin Appearance) Excoriation, Scarring,Rash -Moisture (Jessica-wound Skin Appearance Assessed ) -Color (Jessica-wound Skin Appearance) Assessed, Erythema -Temperature (Jessica-wound Skin No Abnormality Appearance) (Pt Warm) -Tenderness on Palpation (Jessica-wound No Skin Appearance) -Ulcer Cleansing soap and water -Foul Odor after Cleansing No -Anesthetic Used 4% Lidocaine Solution Psych/Mental Status: Normal Affect, Appropriate Debridement Note Left abdomen cluster length 8.0 cm width 2.0 cm depth 0.1 cm Stage III coccyx ulcer length 1.4 cm width 1.5 cm depth 0.5 cm Wound debrided: left groin cluster Laterality: Left Type of Debridement: Selective debridement Anesthesia Used: 4% Lidocaine Solution, 5% Lidocaine Gel Depth: Down to and including healthy tissue, in the subcutaneous layer Percentage of wound debrided: 100 Instrument Used: - - gauze Tissue Removed: yellow slough, devitalized tissue Severity: Fat Layer Exposed Amount of bleeding with debridement: Mild Bleeding Controlled with: Compression and gauze Patient tolerated procedure well - Additional Wound Wound debrided: Stage III coccyx ulcer Laterality: Not Applicable Wound Grade/Stage: Stage III Type of Debridement: Excisional debridement Anesthesia Used: 4% Lidocaine Solution, 5% Lidocaine Gel Depth: Down to and including healthy tissue, in the subcutaneous layer Percentage of wound debrided: 100 Instrument Used: 5mm curette Tissue Removed: yellow slough, devitalized tissue Severity: Fat Layer Exposed Amount of bleeding with debridement: Mild Bleeding Controlled with: Compression and gauze Patient tolerated procedure: Patient tolerated procedure well Assessment/Plan Active Problems (Last Reviewed 03/26/19 @ 14:49 by Rebecca Zavala MD) Ulcer of left groin with fat layer exposed (Chronic) Pressure ulcer of coccygeal region, stage 3 (Chronic) Candidal intertrigo (Chronic) Assessment: ulcers of left groin. morbid obesity. Candidal intertrigo Plan: Pat's ulcers were evaluated today. Her left groin cluster is relatively unchanged and did not have any slough present and therefore was not debrided. Will have her use Fibracol to the ulcers of her left lower abdomen and coccyx and interdry sache to her abdominal fold area to absorb moisture and prevent ulcers from developing due to the heavy drainage. Diflucan prescribed to treat candidal intertrigo. Will have her take this weekly to every other week during the summer due to sweating and heat and her body habitus and chronic yeast which are causing her to develop ulcers. Encouraged her to increase protein intake and offload the areas of her ulcers. Advised to call with any fever, chills, increased drainage. F/u in 1 week.
[2019-05-24 11:51] VITALS: BP 98/64; PULSE 84; RESP 18; TEMP 36; BMI 52.8
--- NOTE | 2019-05-24 15:53 | PCM.WC.PN ---
(1) Pressure ulcer of coccygeal region, stage 3 Status: Chronic Current Visit: Yes Code(s): L89.153 - Pressure ulcer of sacral region, stage 3 (2) Ulcer of left groin with fat layer exposed Status: Chronic Current Visit: Yes Code(s): L98.492 - Non-pressure chronic ulcer of skin of other sites with fat layer exposed (3) Candidal intertrigo Status: Chronic Current Visit: Yes Code(s): B37.2 - Candidiasis of skin and nail Type of Wound Date of Service: 05/24/19 Chief Complaint: ulcers of left groin and abdomen, pressure ulcer of coccyx History of Wound: Samra is a 73 yo woman who presents to the wound center for ulcers of left groin and abdomen referred by wound nurse at [facility]. She was recently hospitalized at [facility] for urosepsis. She was on IV antibiotics of Meropenem and Vancomycin. She is morbidly obese and has problems with candidal intertrigo and has ulcers that open frequently for several years. She was using towels to keep moisture from accumulating under her skin folds but this has been ineffective. She started using InstaDry sheets since discharge from the hospital which has improved the moisture in her folds. She has been using nystatin powder as well. She has been using bacitracin to the ulcer of her abdomen. She has an indwelling suprapubic catheter that is changed monthly. She has heavy drainage from her ulcers. She is wheelchair bound and has an aid that helps her daily for a few hours per day. She denies fever or chills. In May 2019, she reports that she has a chronic ulcer of her coccyx area that was previously surgically debrided that comes and goes and has gotten worse since she was in the residential in early 2018. Progress of Wound: Samra is here for follow up of ulcers of her left groin. She is tolerating Aquacel dressings to left groin and continues to use Interdry strips to her groin area to wick away moisture. She continues to have increased erythema and odor consistent with yeast but it has improved from last week. She has moderate to heavy drainage from the ulcers of her left groin. She is tolerating fibracol to her coccyx ulcer. Her mid-abdomen ulcer remains healed. She denies fever or chills or erythema or increased drainage from previous. - Physical Exam Vital Signs Temp Pulse Resp BP 96.8 F L 84 18 98/64 05/24/19 11:51 05/24/19 11:51 05/24/19 11:51 05/24/19 11:51 General: Alert, Oriented x3, Cooperative, No apparent distress HEENT: Atraumatic, Normocephalic Oral: Moist Mucosa Abdomen: Soft, Non Tender, Obese Extremities: Edema Skin: Ulcer/ Wound Wound Measurements and Assessment WC - Nurse 1 - General Ulcer Measurement Start: 05/17/19 15:01 Freq: Status: Active Protocol: Activity Type Activity Date Activity User E-Sign Co-Sign Detail Recorded Client Recorded Date Recorded By Document 05/24/19 11:51 RB [id number] 05/24/19 12:12 RB 05/24/19 11:51 Wound Center Nurse 1 [Ulcer Assessment] #3 Coccyx -Combined with other wound No -Current Size (cm) - Length 1.7 -Current Size (cm) - Width 1 -Current Size (cm) - Depth 0.4 -Total Square Cm 1.7 -Tunneling No -Undermining/Tunneling No -Circular Undermining No -Exudate Amt Small -Exudate Type Serosanguineous -Wound Margin Thickened -Granulation Amt Large (67-100%) -Granulation Quality Gans -Slough/Fibrin Yes -Necrosis Amt Small (1-33%) -Necrotic Tissue Type Adherent Slough -Structure Exposed N/A -Texture (Jessica-wound Skin Appearance) Assessed, Friable, Scarring -Moisture (Jessica-wound Skin Appearance Assessed ) -Color (Jessica-wound Skin Appearance) Assessed -Temperature (Jessica-wound Skin No Abnormality Appearance) (Pt Warm) -Tenderness on Palpation (Jessica-wound No Skin Appearance) -Ulcer Cleansing Wound Cleanser -Foul Odor after Cleansing No -Anesthetic Used 4% Lidocaine Solution #1 left abd fold cluster -Combined with other wound No -Current Size (cm) - Length 4 -Current Size (cm) - Width 10 -Current Size (cm) - Depth 0.1 -Total Square Cm 40 -Tunneling No -Undermining/Tunneling No -Circular Undermining No -Exudate Amt Medium -Exudate Type Serosanguineous -Wound Margin Flat & Intact -Granulation Amt Large (67-100%) -Granulation Quality Gans -Slough/Fibrin Yes -Necrosis Amt Medium (34-66%) -Necrotic Tissue Type Adherent Slough -Structure Exposed N/A -Texture (Jessica-wound Skin Appearance) Friable -Moisture (Jessica-wound Skin Appearance Maceration ) -Color (Jessica-wound Skin Appearance) Assessed -Temperature (Jessica-wound Skin No Abnormality Appearance) (Pt Warm) -Tenderness on Palpation (Jessica-wound No Skin Appearance) -Ulcer Cleansing Wound Cleanser -Foul Odor after Cleansing No -Anesthetic Used 4% Lidocaine Solution ÁLVARO - Nurse 2 - General Ulcer CM Notes Start: 05/17/19 15:01 Freq: Status: Active Protocol: Activity Type Activity Date Activity User E-Sign Co-Sign Detail Recorded Client Recorded Date Recorded By Document 05/24/19 12:23 DV [id number] 05/24/19 12:28 DV 05/24/19 12:23 Wound Center Nurse 2 [Procedure/Treatment] #3 Coccyx -Time 12:23 -Correct Patient Yes -Correct Side, Site, Position Yes -Correct Procedure Yes -Procedure Performed Yes -Type of Procedure Debridement -Clinical Debridement Subcutaneous -Post Debridement Size (cm) - Length 1.5 -Post Debridement Size (cm) - Width 1.5 -Post Debridement Size (cm) - Depth 0.3 -Total Square Cm 2.25 -Wound/Ulcer Outcome Not Healed -Ulcer Cleansing Rinsed/ Irrigated with Saline -Foul Odor after Cleansing No -Bioengineered Tissue No -Bleeding Controlled with Pressure -Offloading No -Treatment Response Procedure Tolerated Well #1 left abd fold cluster -Time 12:26 -Correct Patient Yes -Correct Side, Site, Position Yes -Correct Procedure Yes -Procedure Performed Yes -Type of Procedure Debridement -Clinical Debridement Subcutaneous -Post Debridement Size (cm) - Length 0.8 -Post Debridement Size (cm) - Width 2.9 -Post Debridement Size (cm) - Depth 0.1 -Total Square Cm 2.32 -Wound/Ulcer Outcome Not Healed -Ulcer Cleansing Rinsed/ Irrigated with Saline -Foul Odor after Cleansing No -Bioengineered Tissue No -Bleeding Controlled with Pressure -Treatment Response Procedure Tolerated Well [See Physician Procedure note for Specifics] Pain Scale: 0-10 Numeric [Pain] -Is Patient Pain Free? Yes Psych/Mental Status: Normal Affect, Appropriate Debridement Note Post-Debridement Measurements/Treatment ÁLVARO - Nurse 2 - General Ulcer CM Notes Start: 05/17/19 15:01 Freq: Status: Active Protocol: Activity Type Activity Date Activity User E-Sign Co-Sign Detail Recorded Client Recorded Date Recorded By Document 05/24/19 12:23 DV [id number] 05/24/19 12:28 DV 05/24/19 12:23 Wound Center Nurse 2 #3 Coccyx -Time 12:23 -Correct Patient Yes -Correct Side, Site, Position Yes -Correct Procedure Yes -Procedure Performed Yes -Type of Procedure Debridement -Clinical Debridement Subcutaneous -Post Debridement Size (cm) - Length 1.5 -Post Debridement Size (cm) - Width 1.5 -Post Debridement Size (cm) - Depth 0.3 -Total Square Cm 2.25 -Wound/Ulcer Outcome Not Healed -Ulcer Cleansing Rinsed/ Irrigated with Saline -Foul Odor after Cleansing No -Bioengineered Tissue No -Bleeding Controlled with Pressure -Offloading No -Treatment Response Procedure Tolerated Well #1 left abd fold cluster -Time 12:26 -Correct Patient Yes -Correct Side, Site, Position Yes -Correct Procedure Yes -Procedure Performed Yes -Type of Procedure Debridement -Clinical Debridement Subcutaneous -Post Debridement Size (cm) - Length 0.8 -Post Debridement Size (cm) - Width 2.9 -Post Debridement Size (cm) - Depth 0.1 -Total Square Cm 2.32 -Wound/Ulcer Outcome Not Healed -Ulcer Cleansing Rinsed/ Irrigated with Saline -Foul Odor after Cleansing No -Bioengineered Tissue No -Bleeding Controlled with Pressure -Treatment Response Procedure Tolerated Well Pain Scale: 0-10 Numeric Is Patient Pain Free? Yes Wound debrided: coccyx Laterality: Not Applicable Wound Grade/Stage: Stage 3 Type of Debridement: Excisional debridement Anesthesia Used: 4% Lidocaine Solution, 5% Lidocaine Gel Depth: Down to and including healthy tissue, in the subcutaneous layer Percentage of wound debrided: 100 Instrument Used: 5mm curette Tissue Removed: yellow slough, devitalized tissue Severity: Fat Layer Exposed Amount of bleeding with debridement: Mild Bleeding Controlled with: Compression and gauze Patient tolerated procedure well - Additional Wound Wound debrided: left abdominal fold cluster Laterality: Left Type of Debridement: Excisional debridement Anesthesia Used: 4% Lidocaine Solution, 5% Lidocaine Gel Depth: Down to and including healthy tissue, in the subcutaneous layer Percentage of wound debrided: 100 Instrument Used: 5mm curette Tissue Removed: yellow slough, devitalized tissue Severity: Fat Layer Exposed Amount of bleeding with debridement: Mild Bleeding Controlled with: Compression and gauze Patient tolerated procedure: Patient tolerated procedure well Assessment/Plan Active Problems (Last Reviewed 03/26/19 @ 14:49 by Rebecca Zavala MD) Ulcer of left groin with fat layer exposed (Chronic) Pressure ulcer of coccygeal region, stage 3 (Chronic) Candidal intertrigo (Chronic) Assessment: ulcers of left groin. morbid obesity. Candidal intertrigo Plan: Pat's ulcers were evaluated today. Her left groin cluster is relatively unchanged and did not have any slough present and therefore was not debrided. Will have her use Fibracol to the ulcers of her left lower abdomen and coccyx and interdry sache to her abdominal fold area to absorb moisture and prevent ulcers from developing due to the heavy drainage. Diflucan prescribed to treat candidal intertrigo. Will have her take this weekly to every other week during the summer due to sweating and heat and her body habitus and chronic yeast which are causing her to develop ulcers. Encouraged her to increase protein intake and offload the areas of her ulcers. Advised to call with any fever, chills, increased drainage. F/u in 2 weeks.
[2019-06-07 12:56] VITALS: BP 140/63; PULSE 63; RESP 16; TEMP 37; BMI 52.8
--- NOTE | 2019-06-07 18:14 | PCM.WC.PN ---
(1) Pressure ulcer of coccygeal region, stage 3 Status: Chronic Current Visit: Yes Code(s): L89.153 - Pressure ulcer of sacral region, stage 3 (2) Ulcer of left groin with fat layer exposed Status: Chronic Current Visit: Yes Code(s): L98.492 - Non-pressure chronic ulcer of skin of other sites with fat layer exposed (3) Candidal intertrigo Status: Chronic Current Visit: Yes Code(s): B37.2 - Candidiasis of skin and nail Type of Wound Date of Service: 06/07/19 Chief Complaint: ulcers of left groin and abdomen, pressure ulcer of coccyx History of Wound: Samra is a 73 yo woman who presents to the wound center for ulcers of left groin and abdomen referred by wound nurse at [facility]. She was recently hospitalized at [facility] for urosepsis. She was on IV antibiotics of Meropenem and Vancomycin. She is morbidly obese and has problems with candidal intertrigo and has ulcers that open frequently for several years. She was using towels to keep moisture from accumulating under her skin folds but this has been ineffective. She started using InstaDry sheets since discharge from the hospital which has improved the moisture in her folds. She has been using nystatin powder as well. She has been using bacitracin to the ulcer of her abdomen. She has an indwelling suprapubic catheter that is changed monthly. She has heavy drainage from her ulcers. She is wheelchair bound and has an aid that helps her daily for a few hours per day. She denies fever or chills. In May 2019, she reports that she has a chronic ulcer of her coccyx area that was previously surgically debrided that comes and goes and has gotten worse since [facility]. Progress of Wound: Samra is here for follow up of ulcers of her left groin. She is tolerating Fibracol dressings to left groin and continues to use Interdry strips to her groin area to wick away moisture. She continues to have increased erythema. She has had increased pain and drainage as well. She has moderate to heavy drainage from the ulcers of her left groin. She is tolerating fibracol to her coccyx ulcer. Her mid-abdomen ulcer remains healed. She denies fever or chills or erythema or increased drainage from previous. - Physical Exam Vital Signs Temp Pulse Resp BP 98.6 F 63 16 140/63 H 06/07/19 12:56 06/07/19 12:56 06/07/19 12:56 06/07/19 12:56 General: Alert, Oriented x3, Cooperative, No apparent distress HEENT: Atraumatic, Normocephalic Oral: Moist Mucosa Abdomen: Obese Skin: Ulcer/ Wound Wound Measurements and Assessment WC - Nurse 1 - General Ulcer Measurement Start: 05/17/19 15:01 Freq: Status: Active Protocol: Activity Type Activity Date Activity User E-Sign Co-Sign Detail Recorded Client Recorded Date Recorded By Document 06/07/19 12:56 [facility] [id number] 06/07/19 13:04 [facility] 06/07/19 12:56 Wound Center Nurse 1 [Ulcer Assessment] #3 Coccyx -Combined with other wound No -Current Size (cm) - Length 1.4 -Current Size (cm) - Width 1.6 -Current Size (cm) - Depth 0.6 -Total Square Cm 2.24 -Photo Taken No -Epithelialization None Present -Tunneling No -Undermining/Tunneling No -Circular Undermining No -Exudate Amt None Present -Wound Margin Thickened -Granulation Amt Large (67-100%) -Granulation Quality [place] -Slough/Fibrin Yes -Necrosis Amt Small (1-33%) -Necrotic Tissue Type Adherent Slough -Texture (Jessica-wound Skin Appearance) Assessed,Callus ,Scarring -Moisture (Jessica-wound Skin Appearance Assessed ) -Color (Jessica-wound Skin Appearance) Assessed -Temperature (Jessica-wound Skin No Abnormality Appearance) (Pt Warm) -Tenderness on Palpation (Jessica-wound No Skin Appearance) -Ulcer Cleansing Rinsed/ Irrigated with Saline -Foul Odor after Cleansing No -Anesthetic Used 4% Lidocaine Solution #1 left abd fold cluster -Combined with other wound No -Current Size (cm) - Length 8 -Current Size (cm) - Width 8 -Current Size (cm) - Depth 0.1 -Total Square Cm 64 -Photo Taken No -Epithelialization None Present -Tunneling No -Undermining/Tunneling No -Circular Undermining No -Exudate Amt Large -Exudate Type Serosanguineous -Wound Margin Flat & Intact -Granulation Amt Large (67-100%) -Granulation Quality Red -Slough/Fibrin No -Necrosis Amt Small (1-33%) -Necrotic Tissue Type Adherent Slough -Texture (Jessica-wound Skin Appearance) Assessed, Excoriation, Scarring -Moisture (Jessica-wound Skin Appearance No Abnormality ) -Color (Jessica-wound Skin Appearance) Assessed, Erythema -Temperature (Jessica-wound Skin No Abnormality Appearance) (Pt Warm) -Tenderness on Palpation (Jessica-wound Yes Skin Appearance) -Ulcer Cleansing soap and water -Foul Odor after Cleansing No -Anesthetic Used 4% Lidocaine Solution WC - Nurse 2 - General Ulcer CM Notes Start: 05/17/19 15:01 Freq: Status: Active Protocol: Activity Type Activity Date Activity User E-Sign Co-Sign Detail Recorded Client Recorded Date Recorded By Document 06/07/19 13:55 MW [id number] 06/07/19 14:06 MW 06/07/19 13:55 Wound Center Nurse 2 [Procedure/Treatment] #3 Coccyx -Time 13:56 -Correct Patient Yes -Correct Side, Site, Position Yes -Correct Procedure Yes -Procedure Performed Yes -Type of Procedure Debridement -Clinical Debridement Subcutaneous -Post Debridement Size (cm) - Length 1.5 -Post Debridement Size (cm) - Width 1.6 -Post Debridement Size (cm) - Depth 0.4 -Total Square Cm 2.40 -Wound/Ulcer Outcome Not Healed -Ulcer Cleansing Rinsed/ Irrigated with Saline -Foul Odor after Cleansing No -Bioengineered Tissue No -Bleeding Controlled with Pressure -Offloading No -Treatment Response Procedure Tolerated Well #1 left abd fold cluster -Time 13:56 -Correct Patient Yes -Correct Side, Site, Position Yes -Correct Procedure Yes -Procedure Performed No -Post Debridement Size (cm) - Length 5.0 -Post Debridement Size (cm) - Width 11.0 -Post Debridement Size (cm) - Depth 0.1 -Total Square Cm 55.00 -Wound/Ulcer Outcome Not Healed -Ulcer Cleansing Rinsed/ Irrigated with Saline -Foul Odor after Cleansing No -Bioengineered Tissue No -Bleeding Controlled with Pressure -Offloading No -Treatment Response Procedure Tolerated Well [See Physician Procedure note for Specifics] Pain Scale: 0-10 Numeric [Pain] -Is Patient Pain Free? Yes Psych/Mental Status: Normal Affect, Appropriate Debridement Note Post-Debridement Measurements/Treatment - Nurse 2 - General Ulcer CM Notes Start: 05/17/19 15:01 Freq: Status: Active Protocol: Activity Type Activity Date Activity User E-Sign Co-Sign Detail Recorded Client Recorded Date Recorded By Document 05/24/19 12:23 DV [id number] 05/24/19 12:28 DV Document 06/07/19 13:55 MW [id number] 06/07/19 14:06 MW 05/24/19 06/07/19 12:23 13:55 Wound Center Nurse 2 #3 Coccyx -Time 12:23 13:56 -Correct Patient Yes Yes -Correct Side, Site, Position Yes Yes -Correct Procedure Yes Yes -Procedure Performed Yes Yes -Type of Procedure Debridement Debridement -Clinical Debridement Subcutaneous Subcutaneous -Post Debridement Size (cm) - Length 1.5 1.5 -Post Debridement Size (cm) - Width 1.5 1.6 -Post Debridement Size (cm) - Depth 0.3 0.4 -Total Square Cm 2.25 2.40 -Wound/Ulcer Outcome Not Healed Not Healed -Ulcer Cleansing Rinsed/ Rinsed/ Irrigated with Irrigated with Saline Saline -Foul Odor after Cleansing No No -Bioengineered Tissue No No -Bleeding Controlled with Pressure Pressure -Offloading No No -Treatment Response Procedure Procedure Tolerated Well Tolerated Well #1 left abd fold cluster -Time 12:26 13:56 -Correct Patient Yes Yes -Correct Side, Site, Position Yes Yes -Correct Procedure Yes Yes -Procedure Performed Yes No -Type of Procedure Debridement -Clinical Debridement Subcutaneous -Post Debridement Size (cm) - Length 0.8 5.0 -Post Debridement Size (cm) - Width 2.9 11.0 -Post Debridement Size (cm) - Depth 0.1 0.1 -Total Square Cm 2.32 55.00 -Wound/Ulcer Outcome Not Healed Not Healed -Ulcer Cleansing Rinsed/ Rinsed/ Irrigated with Irrigated with Saline Saline -Foul Odor after Cleansing No No -Bioengineered Tissue No No -Bleeding Controlled with Pressure Pressure -Offloading No -Treatment Response Procedure Procedure Tolerated Well Tolerated Well Pain Scale: 0-10 Numeric Is Patient Pain Free? Yes Yes Wound debrided: coccyx Laterality: Not Applicable Wound Grade/Stage: Stage III Type of Debridement: Excisional debridement Anesthesia Used: 4% Lidocaine Solution, 5% Lidocaine Gel Depth: Down to and including healthy tissue, in the subcutaneous layer Percentage of wound debrided: 100 Instrument Used: 5mm curette Tissue Removed: yellow slough, devitalized tissue Severity: Fat Layer Exposed Amount of bleeding with debridement: Mild Bleeding Controlled with: Compression and gauze Patient tolerated procedure well - Additional Wound Wound debrided: left groin cluster Laterality: Left Operative Diagnosis: no debridement was completed due to no presence of slough Assessment/Plan Active Problems (Last Reviewed 03/26/19 @ 14:49 by Rebecca Zavala MD) Ulcer of left groin with fat layer exposed (Chronic) Pressure ulcer of coccygeal region, stage 3 (Chronic) Candidal intertrigo (Chronic) Assessment: ulcers of left groin. morbid obesity. Candidal intertrigo Plan: Pat's ulcers were evaluated today. Her left groin cluster is worse but does not appear to have jh infection currently. It did not have any slough present and therefore was not debrided. A wound culture was taken to evaluate for infection. Will treat based on culture results. Will have her use Fibracol to the ulcers of her left lower abdomen and coccyx and interdry sache to her abdominal fold area to absorb moisture and prevent ulcers from developing due to the heavy drainage. Diflucan will be continued once weekly to treat candidal intertrigo. Will have her take this weekly to every other week during the summer due to sweating and heat and her body habitus and chronic yeast which are causing her to develop ulcers. Encouraged her to increase protein intake and offload the areas of her ulcers. Advised to call with any fever, chills, increased drainage. F/u in 2 weeks.
== END 2019-06-12 23:59 ==
LOC: WC 13:00
PROVIDERS: Family Provider Internal Medicine; PCP Internal Medicine; Visit Provider Family Medicine
DX: L98.492 Non-pressure chronic ulcer of skin of other sites with fat layer exposed (principal); B37.2 Candidiasis of skin and nail; L30.4 Erythema intertrigo; E66.01 Morbid (severe) obesity due to excess calories; Z68.43 Body mass index [BMI] 50.0-59.9, adult; Z71.3 Dietary counseling and surveillance; Z99.3 Dependence on wheelchair; L89.153 Pressure ulcer of sacral region, stage 3
CPT/HCPCS: 11042; 87070; 87075; 87077; 87186; 87205; 99213; G0463

== ENCOUNTER 2019-07-02 12:24 | Inpatient (IN) | payer MEDICARE, OTHER, SELFPAY ==
[2019-06-21 12:59] VITALS: BMI 52.8
[2019-07-02] VITALS (10 sets, daily range): BP systolic 110–157; BP diastolic 57–106; PULSE 80–130; RESP 16–25; TEMP 38.1–39.7; O2SAT 90–100; BMI 46.0; BMI 49.3
--- NOTE | 2019-07-02 13:03 | RAD_ITS ---
STUDY: X-RAY CHEST REASON FOR EXAM: Female, 73 years old. Fever TECHNIQUE: Single AP portable view of the chest. COMPARISON: 03/29/2019 FINDINGS: There is mild left lung base atelectasis versus infiltrate along the lateral aspect, new since prior The rest of the bilateral lungs are clear and expanded. There is no demonstrated pleural abnormality on the right. Normal size heart, due to AP technique. Normal mediastinum and peace. Normal visualized pulmonary arteries. Normal visualized aortic arch and descending thoracic aorta. There are diffuse degenerative changes of the visualized thoracic spine. There is degenerative osteoarthritis of the bilateral shoulders. There is no demonstrated abnormality of the visualized soft tissue structures of the upper abdomen. RAD/Chest 1 View (Portable) IMPRESSION: There is mild left lung base atelectasis versus infiltrate along the lateral aspect, new since prior Electronically Signed: Kelvin Moulton MD at 13:28 EDT Tel [phone], Service support ,
[2019-07-02 13:47] LABS: Mucous, Urine 0 SEEN /hpf (<or=2+)
[2019-07-02 13:49] LABS: Color, Urine Yellow (Yellow); Glucose, Dipstick Normal (Normal); Ketone-Dipstick Negative (Negative); Leukocyte Esterase-Dipstick 500 /ul (Negative); Nitrite-Dipstick Positive (Negative); Occult Blood-Urine 250 /ul (Negative); Protein-Dipstick 100 mg/dl (Negative); Urine Bilirubin Dipstick Negative (Negative); Urine Clarity Sl. Cloudy (Clear); Urine Urobilinogen Normal (Normal)
[2019-07-02 13:58] LABS: Bacteria 1+ /hpf (None Seen); Red Blood Cells-Urine 25-50 SEEN /hpf (0-5); Squamous Epithelial Cells - UA 0-5 SEEN /hpf (5-10); White Blood Cells 25-50 SEEN /hpf (0-5)
[2019-07-02] MEDS: 0.9% Normal Saline 1,000 ML 150 ML IV (14:34)
[2019-07-02 14:38] LABS: ALB/GLOB Ratio 0.5 RATIO (0.9-2.4); AST(SGOT) 12 U/L (15-37); Alanine Aminotransfer ALT/SGPT 13 U/L (13-56); Albumin, Serum 3.1 g/dL (3.2-5.0); Alkaline Phosphatase 65 U/L (45-117); Anion Gap 7 (5-15); BUN 33 mg/dL (7-18); BUN/Creat Ratio 23.2 RATIO (10-20); Calcium,Total 9.4 mg/dL (8.5-10.1); Chloride 103 mmol/L (98-107); Creatinine, Serum 1.42 mg/dL (0.55-1.02); EST Glomerular Filtration Rate 39 mL/min (>60); Est Glom Filt Rate - Afr Amer 47 mL/min (>60); Estimated Creatinine Clearance 40.03 ml/min; Globulin 6.3 g/dL (2.2-4.2); Glucose 114 mg/dL (74-106); Potassium 4.7 mmol/L (3.5-5.1); Protein, Total 9.4 g/dL (6.4-8.2); Sodium Level 133 mmol/L (136-145)
--- NOTE | 2019-07-02 14:46 | ED.RN ---
NATAN HELD AT THIS TIME, 2ND SET OF BLOOD CULTURES NOT OBTAINED AT THIS TIME. DR. LOPEZ INFORMED OF SAME. CHANNING JOE RN, AT BEDSIDE TO DRAW LABS.
[2019-07-02] MEDS: Acetaminophen 325 MG Tablet 650 MG PO ×2 (14:48→21:14)
--- NOTE | 2019-07-02 15:14 | NURSING ---
MED SURG WHITE UTI, SEPSIS
--- NOTE | 2019-07-02 15:21 | ED.DCSUM_ITS ---
- ER Visit Summary Date of Service: 07/02/19 Chief Complaint: [Fever ] History of Present Illness: The patient is a 73 F [presents with complaint of a fever that started today. Patient also states that she is just not feeling well today and feels just had a week. Patient has a urinary catheter. Patient has had history of urinary tract and sepsis. She denies any cough. She denies abdominal pain. She denies vomiting. Patient denies diarrhea.] Patient states that her temperature at home was 104. Physical Examination: [HEENT-PERRLA, EOMI. Cranial nerves II through XII grossly intact. TMs clear. Mucous membranes moist. No adenopathy. Exam was made difficult as patient still in her wheelchair and given her large body habitus had not been moved over to the cot. Cardiovascular-regular rate and rhythm without murmur or ectopy Lungs-clear to auscultation, chest wall stable without crepitus or subcu emphysema Abdomen-normoactive bowel sounds, soft, nontender, no rebound or rigidity, no peritoneal signs. Skin exam-there is no evidence of cellulitis to the lower extremities. Extremities-intact ?4, normal range of motion, normal pulses, atraumatic] Test Results: [CBC with differential ordered and pending. Chemistry showed a sodium 133, potassium 4.7, chloride 103, CO2 23, BUN 33, creatinine 1.42. Urinalysis showed 500 leukocyte esterase and positive nitrites. Patient had 25- 50 WBCs and 25-50 RBCs. Blood culture and urine cultures ordered and pending. Lactate ordered and pending.] Emergency Department Course and Treatment: [Patient was started on Rocephin 1 g IV.] Treatment Plan: [Admit for IV antibiotics and fluids.] Disposition: [Admit] Impression: [UTI Sepsis] This note was generated with [employer] dictation software. It may contain incorrect words, spelling, and punctuation that were not noted in review of the chart prior to signing ED Disposition - Plan for ED Patient: Referrals: Noy Chakraborty MD [Primary Care Provider] -
[2019-07-02] MEDS: Ceftriaxone 1 GM/50 ML BAG IV (15:32)
--- NOTE | 2019-07-02 15:34 | ED.RN ---
unable to get second blood cultures or remaining blood work at this time. iv picc access called and to do a line on floor, blood work on hold until then per dr quiroga. dr vela agreeable wth this and both dr agreeable to start atb. at this time.
--- NOTE | 2019-07-02 15:42 | HP.PCM_ITS ---
Problem List (1) Sepsis Status: Acute Qualifiers: Sepsis type: sepsis due to unspecified organism Sepsis acute organ dysfunction status: unspecified Qualified Code(s): A41.9 - Sepsis, unspecified organism (2) UTI (urinary tract infection) Status: Acute Qualifiers: (3) MICHAELLE (acute kidney injury) Status: Acute (4) Anxiety and depression Status: Chronic (5) VITA (obstructive sleep apnea) Status: Chronic (6) Morbid obesity Status: Chronic (7) HTN (hypertension) Status: Chronic Qualifiers: Hypertension type: essential hypertension Qualified Code(s): I10 - Essential (primary) hypertension (8) HLD (hyperlipidemia) Status: Chronic Qualifiers: Hyperlipidemia type: unspecified Qualified Code(s): E78.5 - Hyperlipidemia, unspecified History of Present Illness Date of Admission: 07/02/19 Chief Complaint: Lethargic, febrile, weak The patient is a 73 y/o F w/ PMHx: Morbid Obesity, VITA with intermittent CPAP usage, HTN, HLD, Chronic abdominal intertrigo and wounds, Hypoventilation syndrome, Chronic severe debility with bedbound status and wheelchair usage following ventilated status x 2 weeks remotely who now presents to the [facility] ED on 07/02/19 with history of onset fever, malaise, lethargy and confusion over the last 24 hours with similar presentation in the past and family member present notes always seems to be accompanied urinary tract infection with noted next planned suprapubic catheter change in approximately 1 to 2 weeks. In the ED notable difficulty with obtaining labs therefore BMP placed and blood culture x1 but CBC pending. Antibiotics administered prior to being able to obtain second blood culture given acute presentation. Discussed with the ED staff and given prior history requested PICC line to be placed. Work-up in the ED included T up to 103.4 in the ED, heart rate 124, BP 150/106, respiratory rate 16, 93% on room air, CBC requested and pending, BMP with sodium 133, BUN/creatinine 33/1.42, glucose 114, urinalysis suggestive of acute UTI, urine culture pending per ED, blood culture pending per ED. In the ED patient administered normal saline, Tylenol as well as IV Rocephin however review of cultures further upon admission with notable evidence of prior Pseudomonas with several resistance patterns but ID has mentioned colonization prior and have noted history of enterococcal infection. Past Medical History Past Medical History (Chronic Problems): Chronic Problems (Last Reviewed 03/26/19 @ 14:49 by Rebecca Zavala MD) Ulcer of abdomen wall with fat layer exposed (Chronic) Ulcer of left groin with fat layer exposed (Chronic) Pressure ulcer of coccygeal region, stage 3 (Chronic) Morbid obesity (Chronic) Anxiety and depression (Chronic) HTN (hypertension) (Chronic) HLD (hyperlipidemia) (Chronic) Debility (Chronic) Depression (Chronic) VITA (obstructive sleep apnea) (Chronic) Candidal intertrigo (Chronic) Medical History: Medical History (Last Reviewed 03/26/19 @ 14:49 by Rebecca Zavala MD) DM2 (diabetes mellitus, type 2) E11.9 Debility R53.81 VITA (obstructive sleep apnea) G47.33 HTN (hypertension) I10 Allergies adhesive tape Allergy (Verified 07/02/19 12:27) blisters Influenza Virus Vaccines Allergy (Verified 07/02/19 12:27) shortness of breath/severe wheezing iron Allergy (Verified 07/02/19 12:27) from IV form chest pressure and heart palpitations Sulfa (Sulfonamide Antibiotics) Allergy (Verified 07/02/19 12:27) Shortness of breath bactrim does not work for her-per pcp paperwork meloxicam [From Mobic] Adverse Reaction (Verified 07/02/19 12:27) gi upset seasonal allergies Allergy (Uncoded 07/02/19 12:27) Other Home Medications: Ambulatory Orders Medication Instructions Recorded Furosemide [Lasix] 20 mg PO BID 09/30/13 Pantoprazole Sodium [Protonix] 40 mg PO DAILY 09/30/13 Albuterol Inhaler [Ventolin Hfa] 2 puff INHALATION Q4H PRN PRN 10/30/18 Baclofen 10 mg PO TID 10/30/18 Cholecalciferol (VIT D3) [Vitamin 1,000 unit PO DAILY 10/30/18 D3] Cranberry Conc/Ascorbic Acid 1 each PO TID 10/30/18 [Cranberry Concentrate Softgel] Gabapentin [Neurontin] 600 mg PO BID 10/30/18 Lisinopril [Zestril] 10 mg PO DAILY 10/30/18 Multivitamins,Ther W-Minerals 1 tablet PO 4X/DAY 10/30/18 [Multivitamin With Minerals] Nystatin Powder [Mycostatin Powder] 1 applicatio TOPICAL BID PRN PRN 10/30/18 Oxybutynin Chloride [Ditropan Xl] 15 mg PO DAILY 10/30/18 Vitamin E 400 units PO DAILY 10/30/18 levETIRAcetam tablet [Keppra 500 mg PO QHS 10/30/18 tablet] metFORMIN HCl [Glucophage] 500 mg PO BID 10/30/18 Cyanocobalamin (Vitamin B-12) 1,000 mcg PO DAILY 12/17/18 [B-12] Pravastatin [Pravachol] 20 mg PO QHS 12/17/18 Venlafaxine HCl [Effexor] 150 mg PO BID 12/17/18 Duloxetine HCl 60 mg PO DAILY 03/22/19 Naproxen [Naprosyn] 500 mg PO BID PRN PRN 03/22/19 Ascorbic Acid [Vitamin C] 500 mg PO BID #180 cap 03/25/19 Diltiazem CD [Cardizem CD] 120 mg PO DAILY #30 capsule 03/26/19 Fluticasone 0.05% [Flonase Nasal 2 spray NASAL DAILY #1 nasal.sry 03/26/19 [place]] Potassium Chloride [K-Dur] 10 meq PO DAILYCM #30 tablet 03/26/19 Methenamine Hippurate [Hiprex] 1 gm PO BID 04/05/19 Hydrocodone Bitart/Apap 5-325 1 tab PO Q6H PRN PRN 07/02/19 [[place] 5MG-325MG] Surgical History: cholecystectomy, hysterectomy, - - Suprapubic catheter placement. Psychiatric History: Anxiety, Bipolar, Depression INFORMATION ENGINEER History: No pertinent INFORMATION ENGINEER history Lives: - - Patient has a healthcare sitter at home. Smoking Status: Never smoker Tobacco Use: Non-smoker Alcohol: None Drugs: None - *Family History Maternal History Items: Diabetes, Heart Disease - Her father had a CABG and CHF Paternal History Items: Heart Disease Review of Systems Constitutional: Reports: Anorexia, Fever, Malaise, Weakness, Fatigue. Denies: Chills, Weight Change HEENT: Denies: Head Aches, Sinus Congestion, Sinus Drainage Cardiovascular: Denies: Chest Pain, Palpitations Respiratory: Reports: Shortness of breath upon exertion. Denies: Cough, Shortness of breath at rest, Sputum production Gastrointestinal: Denies: Abdominal Pain, Nausea, Vomiting Genitourinary: Reports: Retention, - - Chronic suprapubic catheter present.. Denies: Dysuria Musculoskeletal: Reports: Back Pain, Joint Pain, Leg Pain. Denies: Joint Tenderness Skin: Reports: Skin Changes, Wounds. Denies: Rash Neurological: Reports: Balance problems, - - Chronic bilateral lower extremity weakness, debility, bedbound, wheelchair bound.. Denies: Focal weakness, Numbness, Tingling Psychiatric: Reports: Anxiety, Depression. Denies: Homicidal Ideations, Suicidal Ideations Hematologic/ Lymphatic: Reports: Anemia. Denies: Easy Bruising, Easy Bleeding VTE Information - Inpt Only VTE Present on Admission: No VTE Mechan Device Prophylaxis: SCD's VTE Pharm Prophylaxis ordered?: Yes Patient Problems: Active and Suspected Problems (Last Reviewed 03/26/19 @ 14:49 by Rebecca Zavala MD) Sepsis (Acute) Subjective: Seated upright in her chair, flushed appearance, slow to answer, mildly confused, ill-appearing. Objective: Physical Examination: General: awake, intermittently alert, oriented to self and place and some recent events, slow to answer, mildly confused, remains cooperative, seated upright in her chair, flushed appearance, ill-appearing. Skin: normal color, turgor, no icterus, cyanosis except for noted flushed cheeks and notable intertrigo in the abdominal folds with chronic stage I-II stasis ulcers, foul older. HEENT: AT/NC, EOMI, PERRLA, dry MM, no carotid bruits or JVD noted; however, habitus makes examination difficult with thickened neck. Lungs: Diminished breath sounds throughout, greater bilateral bases, distant, moderate effort, no rales, ronchi or wheezing. Heart: Mildly tachycardic with regular rhythm; no gallop, rub audible. Abdomen: soft, orbitally obese, see skin, NTTP, ND, normal BS, no HSM; however, habitus makes examination very difficult. Extremities: no cyanosis, clubbing, or edema, chronic functional paraplegia. Neurological: patient awake, alert, oriented x 3; cognitive function intact; pupils equally reactive to light and accomodation; cranial nerves II-XII grossly normal, moving all 4 extremities except very limited bilateral lower extremity movement with chronic functional paraplegia with chronic bedbound and wheelchair usage, strength is severely globally decreased secondary to chronic comorbidities and acute presentation. Psychiatric: affect appears fatigued, ill, no acute evidence of depressive or anxiety feelings. - Physical Exam Vital Signs Temp Pulse Resp BP Pulse Ox 102.9 F H 80 18 142/96 H 96 07/02/19 14:36 07/02/19 14:36 07/02/19 14:36 07/02/19 12:25 07/02/19 14:36 Oxygen Delivery Method Room Air Weight: 330 lb Body Mass Index (BMI) 46.0 Intake and Output for Last 24 Hours 06/30/19 07/01/19 07/02/19 23:59 23:59 23:59 Intake Total 145 / 145 Balance 145 / 145 Laboratory Tests Past 24 Hrs 07/02/19 07/02/19 13:40 14:05 Sodium 133 L Potassium 4.7 Chloride 103 Carbon Dioxide 23.0 Anion Gap 7 BUN 33 H Creatinine 1.42 H Estim Creat Clear Calc 40.03 Est GFR (MDRD) Af Amer 47 L Est GFR (MDRD) Non-Af 39 L BUN/Creatinine Ratio 23.2 H Glucose 114 H Calcium 9.4 Total Bilirubin 0.30 AST 12 L ALT 13 Alkaline Phosphatase 65 Total Protein 9.4 H Albumin 3.1 L Globulin 6.3 H Albumin/Globulin Ratio 0.5 L Urine Color Yellow Urine Clarity Sl. Cloudy Urine pH 7.0 Ur Specific [place] 1.010 Urine Protein 100 H Urine Glucose (UA) Normal Urine Ketones Negative Urine Occult Blood 250 H Urine Nitrite Positive H Urine Bilirubin Negative Urine Urobilinogen Normal Ur Leukocyte Esterase 500 H Urine RBC 25-50 SEEN Urine WBC 25-50 SEEN Ur Squamous Epith Cells 0-5 SEEN Urine Bacteria 1+ Urine Mucus 0 SEEN Assessment/Plan All Active Problems (Last Reviewed 03/26/19 @ 14:49 by Rebecca Zavala MD) Urinary retention (Acute) Sepsis (Acute) UTI (urinary tract infection) (Acute) Sepsis (Acute) MICHAELLE (acute kidney injury) (Acute) Atrial arrhythmia (Acute) Suprapubic catheter dysfunction (Resolved) The patient is a 73 y/o F w/ PMHx: , ? Seizure disorder, Morbid Obesity, VITA with intermittent CPAP usage, HTN, HLD, Chronic abdominal intertrigo and wounds, Hypoventilation syndrome, Chronic severe debility with bedbound status and wheelchair usage following ventilated status x 2 weeks remotely who now presents to the [facility] ED on 07/02/19 with history of onset fever, malaise, lethargy and confusion over the last 24 hours with similar presentation in the past and family member present notes always seems to be accompanied urinary tract infection with noted next planned suprapubic catheter change in approximately 1 to 2 weeks. In the ED notable difficulty with obtaining labs therefore BMP placed and blood culture x1 but CBC pending. 1. Acute sepsis, possibly severe sepsis but labs pending secondary to acute encephalopathy (infectious) secondary to complicated urinary tract section with chronic supra pubic catheter: Will admit to [facility] with telemetry, UA upon ED evaluation remarkable, pending UCx, awaiting CBC as well as lactic acid level as unable to obtain labs in ED, pending PICC line as patient very difficult stick, continue IVFs, monitor I/Os, continue IV meropenem based on prior cultures pending infectious disease evaluation, would plan also to transition as able pending sensitivities and speciation. We will consult Dr. Andrews, urology as patient does need suprapubic catheter change. Bld cx x 2 obtained in the ED. 2. Acute kidney injury: Secondary to #1. Admission BUN/Cr 33/1.42, prior baseline creatinine noted to be 0.8. Will hydrate, hold nephrotoxic medications and repeat chemistry in AM. If no improvement would plan FeNa and renal US assessment. 3. Functional paraplegia, following prolonged ventilated status, chronic bedbound and wheelchair-bound: Discussed with patient health care power of estate planning attorney and patient and from discussions has been chronically bedbound and wheelchair-bound following prolonged ventilated state remotely, unclear specific history but since then is also been on Keppra, maintain on fall precautions, aspiration precautions, head of bed, IS, CPAP nightly as noted, wound care pending, PT, OT, case management consultations for discharge pending. 4. Hypertension: We will continue home Cardizem regimen, holding lisinopril given acute kidney injury, PRN hydralazine. 5. Hyperlipidemia: Continue home statin regimen. 6. ? Seizure disorder: We will continue patient home Keppra regimen. 7. Diabetes mellitus type II: Hold oral home regimen, ADA diet, accu checks w/ ISS. 8. Anxiety and depression: Need to verify regimen is currently listed as being on both duloxetine and venlafaxine, inappropriate dual regimen. 9. Morbid Obesity: Weight loss and lifestyle changes encouraged, nutrition consulted. 10. Chronic abdominal fold intertrigo, wounds: Stasis wounds stage I-II, intertrigo evident, continue nystatin powder as well as aggressive wound care, wound RN consulted. 11. VITA: CPAP nightly used intermittently, discussed and will continue here given acute presentation. 12. GERD: Continue home PPI. 13. DVT prophylaxis: SCDs, Lovenox. 13. CODE status: Patient healthcare power of estate planning attorney present. Living will is in place. Discussed CODE status at length including difference between FULL code, DNR-CCA and DNR-CC status. Following discussions about the differences in these status, requested full code status. Advanced Care Planning Face to Face Time: 16 minutes. Code Visit Inpatient E&M: 48801 Init Hosp L3 Procedures: 17152 Advncd Care Plan 30 Min
[2019-07-02 17:22] LABS: Magnesium 2.1 mg/dL (1.6-2.6)
[2019-07-02] MEDS: Gabapentin 600 MG Tablet PO (18:32)
[2019-07-02] MEDS: Ascorbic Acid 500 MG Tablet PO (18:32)
[2019-07-02] MEDS: Glucerna Shake 120 ML LIQUID PO (18:33)
[2019-07-02] MEDS: Methenamine Hippurate 1 GM Tablet PO (21:13)
[2019-07-02] MEDS: levETIRAcetam 500 MG Tablet PO (21:13)
[2019-07-02] MEDS: Enoxaparin 30 MG/0.3 ML Syringe SC (21:14)
[2019-07-02] MEDS: Venlafaxine XR 150 MG Capsule PO (21:14)
[2019-07-02] MEDS: Baclofen 10 MG Tablet PO (21:14)
[2019-07-02] MEDS: Pravastatin 20 MG Tablet PO (21:14)
[2019-07-02] MEDS: Nystatin Powder 15gm Bottle 1 APPLIC TOPICAL (21:15)
[2019-07-02] MEDS: 0.9% NaCl PICC Flush IV (21:17)
[2019-07-02 21:23] LABS: Absolute Lymphocyte Count 0.89 X10^3/uL (0.83-4.51); Absolute Neutrophil Count 9.7 X10^3/uL (2.0-7.7); Basophil# 0.03 X10^3/uL; Basophil% 0.3 % (0-1); Eosinophil# 0.02 X10^3/uL; Eosinophils% 0.2 % (0-5); Hematocrit 31.9 % (37-47); Hemoglobin 9.9 g/dL (12.0-15.0); Lymphocyte # 0.89 X10^3/ul (4.0); Lymphocyte % 7.8 % (19-41); Mean Corpuscular Hgb 27.7 pg (27.0-32.0); Mean Corpuscular Volume 89.4 fL (81-99); Mean Platelet Vol. 9.1 fl (6.2-12.0); Monocyte# 0.72 X10^3/uL; Monocyte% 6.3 % (0-10); NRBC Flagged by Analyzer 0 % (0-5); Neutrophil % 84.8 % (47-70); Platelet Count 259 K/mm3 (150-450); RBC Distribution Width CV 16.5 % (11.6-14.6); RBC Distribution Width SD 53.7 fl (35.1-43.9); Red Blood Count 3.57 M/mm3 (4.2-5.4); White Blood Count 11.4 K/mm3 (4.4-11.0)
[2019-07-02 21:31] LABS: Bedside Glucose 108 mg/dL (70-110)
[2019-07-02 21:50] LABS: Lactic Acid 1.6 mmol/L (0.4-2.0)
[2019-07-02] MEDS: 0.9% Normal Saline 1,000 ML 125 ML IV (22:09)
--- NOTE | 2019-07-02 23:23 | NURSING ---
Cold rag placed to pt's head. ice packs placed beneath bilat arms.
[2019-07-03] VITALS (18 sets, daily range): BP systolic 98–144; BP diastolic 53–67; PULSE 91–114; RESP 18–20; TEMP 36.4–37.5; O2SAT 85–99
[2019-07-03] MEDS: 0.9% Normal Saline 1,000 ML 125 ML IV ×3 (03:42→19:51)
[2019-07-03 04:46] LABS: Absolute Lymphocyte Count 0.94 X10^3/uL (0.83-4.51); Absolute Neutrophil Count 6.7 X10^3/uL (2.0-7.7); Basophil# 0.03 X10^3/uL; Basophil% 0.4 % (0-1); Eosinophil# 0.03 X10^3/uL; Eosinophils% 0.4 % (0-5); Lymphocyte # 0.94 X10^3/ul (4.0); Lymphocyte % 11.3 % (19-41); Mean Corpuscular Hgb 27.9 pg (27.0-32.0); Mean Corpuscular Volume 89.8 fL (81-99); Mean Platelet Vol. 9.1 fl (6.2-12.0); Monocyte# 0.56 X10^3/uL; Monocyte% 6.7 % (0-10); NRBC Flagged by Analyzer 0 % (0-5); Neutrophil # 6.71 X10^3/uL (2.7-7.7); Neutrophil % 80.5 % (47-70); Platelet Count 224 K/mm3 (150-450); RBC Distribution Width CV 16.9 % (11.6-14.6); RBC Distribution Width SD 54.7 fl (35.1-43.9); Red Blood Count 3.23 M/mm3 (4.2-5.4); White Blood Count 8.3 K/mm3 (4.4-11.0)
[2019-07-03 05:00] LABS: Anion Gap 8 (5-15); BUN 29 mg/dL (7-18); BUN/Creat Ratio 20.4 RATIO (10-20); Calcium,Total 8.7 mg/dL (8.5-10.1); Chloride 104 mmol/L (98-107); Creatinine, Serum 1.42 mg/dL (0.55-1.02); EST Glomerular Filtration Rate 39 mL/min (>60); Est Glom Filt Rate - Afr Amer 47 mL/min (>60); Estimated Creatinine Clearance 34.82 ml/min; Glucose 110 mg/dL (74-106); Potassium 3.8 mmol/L (3.5-5.1); Sodium Level 138 mmol/L (136-145)
[2019-07-03] MEDS: Baclofen 10 MG Tablet PO ×3 (05:37→23:22)
[2019-07-03] MEDS: 0.9% NaCl PICC Flush IV (05:44)
[2019-07-03] MEDS: Nystatin Powder 15gm Bottle 1 APPLIC TOPICAL ×3 (05:44→23:25)
[2019-07-03 07:00] LABS: Bedside Glucose 117 mg/dL (70-110)
--- NOTE | 2019-07-03 07:27 | CON.PCM_ITS ---
Reason for Consult Date of Consultation: 07/03/19 Reason for Consultation: Chronic suprapubic catheter History of Present Illness: The patient is a 73 year old female with multiple medical problems severe obesity she has a chronic suprapubic catheter was placed long time ago. She has a 24 [place] Henry and we will change to catheter today once we get the equipment. She came in with a urinary tract infection. Past Medical History Past Medical History (Chronic Problems): Chronic Problems (Last Reviewed 03/26/19 @ 14:49 by Rebecca Zavala MD) Ulcer of abdomen wall with fat layer exposed (Chronic) Ulcer of left groin with fat layer exposed (Chronic) Pressure ulcer of coccygeal region, stage 3 (Chronic) Morbid obesity (Chronic) Anxiety and depression (Chronic) HTN (hypertension) (Chronic) HLD (hyperlipidemia) (Chronic) Debility (Chronic) Depression (Chronic) VITA (obstructive sleep apnea) (Chronic) Candidal intertrigo (Chronic) Medical History: Medical History (Last Reviewed 03/26/19 @ 14:49 by Rebecca Zavala MD) DM2 (diabetes mellitus, type 2) E11.9 Debility R53.81 VITA (obstructive sleep apnea) G47.33 HTN (hypertension) I10 Allergies adhesive tape Allergy (Verified 07/02/19 12:27) blisters Influenza Virus Vaccines Allergy (Verified 07/02/19 12:27) shortness of breath/severe wheezing iron Allergy (Verified 07/02/19 12:27) from IV form chest pressure and heart palpitations Sulfa (Sulfonamide Antibiotics) Allergy (Verified 07/02/19 12:27) Shortness of breath bactrim does not work for her-per pcp paperwork meloxicam [From Mobic] Adverse Reaction (Verified 07/02/19 12:27) gi upset seasonal allergies Allergy (Uncoded 07/02/19 12:27) Other Home Medications: Ambulatory Orders Medication Instructions Recorded Furosemide [Lasix] 20 mg PO BID 09/30/13 Albuterol Inhaler [Ventolin Hfa] 2 puff INHALATION Q4H PRN PRN 10/30/18 Baclofen 10 mg PO TID 10/30/18 Cholecalciferol (VIT D3) [Vitamin 1,000 unit PO DAILY 10/30/18 D3] Gabapentin [Neurontin] 600 mg PO BID 10/30/18 Lisinopril [Zestril] 10 mg PO DAILY 10/30/18 Multivitamins,Ther W-Minerals 1 tablet PO 4X/DAY 10/30/18 [Multivitamin With Minerals] Nystatin Powder [Mycostatin Powder] 1 applicatio TOPICAL BID PRN PRN 10/30/18 Oxybutynin Chloride [Ditropan Xl] 15 mg PO DAILY 10/30/18 Vitamin E 400 units PO DAILY 10/30/18 levETIRAcetam tablet [Keppra 500 mg PO QHS 10/30/18 tablet] metFORMIN HCl [Glucophage] 500 mg PO BID 10/30/18 Cyanocobalamin (Vitamin B-12) 1,000 mcg PO DAILY 12/17/18 [B-12] Pravastatin [Pravachol] 20 mg PO QHS 12/17/18 Duloxetine HCl 60 mg PO DAILY 03/22/19 Naproxen [Naprosyn] 500 mg PO BID PRN PRN 03/22/19 Ascorbic Acid [Vitamin C] 500 mg PO BID #180 cap 03/25/19 Diltiazem CD [Cardizem CD] 120 mg PO DAILY #30 capsule 03/26/19 Potassium Chloride [K-Dur] 10 meq PO DAILYCM #30 tablet 03/26/19 Methenamine Hippurate [Hiprex] 1 gm PO BID 04/05/19 Fluconazole 200 mg PO TU 07/02/19 Fluticasone Propionate 2 spry INHALATION DAILY PRN 07/02/19 Hydrocodone Bitart/Apap 5-325 1 tab PO Q6H PRN PRN 07/02/19 [[place] 5MG-325MG] Ranitidine [Zantac] 150 mg PO BID 07/02/19 Venlafaxine XR [Effexor Xr] 150 mg PO BID 07/02/19 Surgical History: cholecystectomy, hysterectomy, - - Suprapubic catheter placement. 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 Smoking Status: Current every day smoker Tobacco Use: Non-smoker Alcohol: None Drugs: None - *Family History Maternal History Items: Diabetes, Heart Disease - Her father had a CABG and CHF Paternal History Items: Heart Disease Review of Systems Constitutional: Reports: Chills, Fever HEENT: Denies: Head Aches, Sinus Congestion, Sinus Drainage Cardiovascular: Denies: Chest Pain, Palpitations Respiratory: Denies: Cough, Shortness of breath at rest, Sputum production Gastrointestinal: Denies: Abdominal Pain, Nausea, Vomiting Genitourinary: Denies: Dysuria Musculoskeletal: Denies: Joint Pain, Joint Tenderness Skin: Denies: Rash, Wounds Neurological: Denies: Numbness, Tingling, Focal weakness Psychiatric: Denies: Anxiety, Depression, Homicidal Ideations, Suicidal Ideations Hematologic/ Lymphatic: Denies: Easy Bruising, Easy Bleeding Physical Exam - Physical Exam Vital Signs Temp 99.2 F H 07/03/19 05:30 Pulse 99 07/03/19 06:32 Resp 18 07/03/19 05:30 BP 114/56 L 07/03/19 05:30 Pulse Ox 98 07/03/19 05:30 Intake & Output 07/01/19 07/02/19 07/03/19 23:59 23:59 23:59 Intake Total 992.08 / 992.08 820.83 / 820.83 Output Total 400 / 1100 1350 / 1350 Balance 592.08 / -107.92 -529.17 / -529.17 Weight: 142.9 kg Intake: Oral 400 / 400 100 / 100 Intake, IV Amount 592.08 / 592.08 720.83 / 720.83 0.9% Normal Saline 1,000 ML @ 225 / 225 720.83 / 720.83 125 mls/hr IV .Q8H [facility]ARINA Rx#: [id number] 0.9% Normal Saline 1,000 ML @ 197.08 / 197.08 150 mls/hr IV .Q6H40M ZARINA Rx#: [id number] Merrem 1 GM In 0.9% Normal 120 / 120 Saline 100 ML @ 33 mls/hr IV Q8 [facility] Rx#:[id number] Rocephin 1 gm In 50 ml @ 100 50 / 50 mls/hr IV X1 ONE Rx#:[id number] Output: Urine 400 / 1100 1350 / 1350 General: Alert HEENT: Atraumatic Oral: Moist Mucosa Neck: Supple Lungs: Normal air movement Cardiovascular: Regular rate Abdomen: Soft, Obese Laboratory Tests Past 24 Hrs 07/02/19 07/02/19 07/02/19 13:40 14:05 14:05 WBC RBC Hgb Hct MCV MCH MCHC RDW Std Deviation RDW Coeff of Jessi Plt Count MPV Immature Gran % (Auto) Neut % (Auto) Lymph % (Auto) [place] % (Auto) Eos % (Auto) Baso % (Auto) Absolute Neuts (auto) Absolute Lymphs (auto) Nucleated RBC % Sodium 133 L Potassium 4.7 Chloride 103 Carbon Dioxide 23.0 Anion Gap 7 BUN 33 H Creatinine 1.42 H Estim Creat Clear Calc 40.03 Est GFR (MDRD) Af Amer 47 L Est GFR (MDRD) Non-Af 39 L BUN/Creatinine Ratio 23.2 H Glucose 114 H Lactic Acid Calcium 9.4 Magnesium 2.1 Total Bilirubin 0.30 AST 12 L ALT 13 Alkaline Phosphatase 65 Total Protein 9.4 H Albumin 3.1 L Globulin 6.3 H Albumin/Globulin Ratio 0.5 L Urine Color Yellow Urine Clarity Sl. Cloudy Urine pH 7.0 Ur Specific [place] 1.010 Urine Protein 100 H Urine Glucose (UA) Normal Urine Ketones Negative Urine Occult Blood 250 H Urine Nitrite Positive H Urine Bilirubin Negative Urine Urobilinogen Normal Ur Leukocyte Esterase 500 H Urine RBC 25-50 SEEN Urine WBC 25-50 SEEN Ur Squamous Epith Cells 0-5 SEEN Urine Bacteria 1+ Urine Mucus 0 SEEN 07/02/19 07/02/19 07/03/19 21:13 21:13 04:38 WBC 11.4 H 8.3 RBC 3.57 L 3.23 L Hgb 9.9 L 9.0 L Hct 31.9 L 29.0 L MCV 89.4 89.8 MCH 27.7 27.9 MCHC 31.0 L 31.0 L RDW Std Deviation 53.7 H 54.7 H RDW Coeff of Jessi 16.5 H 16.9 H Plt Count 259 224 MPV 9.1 9.1 Immature Gran % (Auto) 0.600 0.700 Neut % (Auto) 84.8 H 80.5 H Lymph % (Auto) 7.8 L 11.3 L [place] % (Auto) 6.3 6.7 Eos % (Auto) 0.2 0.4 Baso % (Auto) 0.3 0.4 Absolute Neuts (auto) 9.7 H 6.7 Absolute Lymphs (auto) 0.89 0.94 Nucleated RBC % 0 0 Sodium Potassium Chloride Carbon Dioxide Anion Gap BUN Creatinine Estim Creat Clear Calc Est GFR (MDRD) Af Amer Est GFR (MDRD) Non-Af BUN/Creatinine Ratio Glucose Lactic Acid 1.6 Calcium Magnesium Total Bilirubin AST ALT Alkaline Phosphatase Total Protein Albumin Globulin Albumin/Globulin Ratio Urine Color Urine Clarity Urine pH Ur Specific [place] Urine Protein Urine Glucose (UA) Urine Ketones Urine Occult Blood Urine Nitrite Urine Bilirubin Urine Urobilinogen Ur Leukocyte Esterase Urine RBC Urine WBC Ur Squamous Epith Cells Urine Bacteria Urine Mucus 07/03/19 04:38 WBC RBC Hgb Hct MCV MCH MCHC RDW Std Deviation RDW Coeff of Jessi Plt Count MPV Immature Gran % (Auto) Neut % (Auto) Lymph % (Auto) [place] % (Auto) Eos % (Auto) Baso % (Auto) Absolute Neuts (auto) Absolute Lymphs (auto) Nucleated RBC % Sodium 138 Potassium 3.8 Chloride 104 Carbon Dioxide 26.0 Anion Gap 8 BUN 29 H Creatinine 1.42 H Estim Creat Clear Calc 34.82 Est GFR (MDRD) Af Amer 47 L Est GFR (MDRD) Non-Af 39 L BUN/Creatinine Ratio 20.4 H Glucose 110 H Lactic Acid Calcium 8.7 Magnesium Total Bilirubin AST ALT Alkaline Phosphatase Total Protein Albumin Globulin Albumin/Globulin Ratio Urine Color Urine Clarity Urine pH Ur Specific [place] Urine Protein Urine Glucose (UA) Urine Ketones Urine Occult Blood Urine Nitrite Urine Bilirubin Urine Urobilinogen Ur Leukocyte Esterase Urine RBC Urine WBC Ur Squamous Epith Cells Urine Bacteria Urine Mucus Assessment/Plan All Active Problems (Last Reviewed 03/26/19 @ 14:49 by Rebecca Zavala MD) Urinary retention (Acute) Sepsis (Acute) UTI (urinary tract infection) (Acute) Sepsis (Acute) MICHAELLE (acute kidney injury) (Acute) Atrial arrhythmia (Acute) Suprapubic catheter dysfunction (Resolved) 73-year-old female with a chronic suprapubic catheter will change catheter today it is very difficult catheter change, once I get the proper size catheter otherwise continue with current management call me with questions.
[2019-07-03] MEDS: Gabapentin 600 MG Tablet PO ×2 (08:52→16:22)
[2019-07-03] MEDS: Pantoprazole Sodium 40 MG Tablet PO (08:52)
[2019-07-03] MEDS: Methenamine Hippurate 1 GM Tablet PO ×2 (08:52→23:24)
[2019-07-03] MEDS: DULoxetine Hcl 60 MG Capsule PO (08:52)
[2019-07-03] MEDS: Tolterodine Tartrate 4 MG CAP.SA PO (08:52)
[2019-07-03] MEDS: Ascorbic Acid 500 MG Tablet PO ×2 (08:53→16:22)
[2019-07-03] MEDS: Venlafaxine XR 150 MG Capsule PO ×2 (08:53→23:23)
[2019-07-03] MEDS: dilTIAZem CD 120 MG Capsule PO (08:53)
[2019-07-03] MEDS: Enoxaparin 30 MG/0.3 ML Syringe SC ×2 (08:54→23:23)
[2019-07-03] MEDS: Glucerna Shake 120 ML LIQUID PO ×3 (08:55→16:22)
--- NOTE | 2019-07-03 10:43 | NURSING ---
wound photo: abdominal fold (left abdomen)
--- NOTE | 2019-07-03 10:44 | NURSING ---
wound photo: abdominal fold (right abdomen)
--- NOTE | 2019-07-03 11:15 | CASEMGMT ---
RN CONRAD Face to Face with patient for initial transition planning/care coordination assessment. RN CM introduced self and role at [facility]. Patient lying in bed, alert and oriented. Patient willing to participate in assessment and is able to answer all questions appropriately. Care providers, pharmacy, and demographics verified. Patient wishes to discharge home, denies need for home health at this time, unless patient requires IV ATBs at discharge. Patient states she has no further needs or concerns at this time. CM to follow for discharge planning needs that may arise. PCP: Palmer Specialists: Klaudia urologist; Marcelo neurologist [facility]acy[facility] Insurance: [employer], [employer] Prescription Benefit: yes Living Will/HPOA: yes, sister Esperanza Felder LNOK: sister Living Arrangements: Patient lives in modular home with 24 hrs live in patient care provider who assists with ADLs Transportation: sister DME/HHC: Patient states she has shower chair, hospital bed, grab bars, hip kit, wheelchair, medical alert, bipap with oxgyen through [facility]. Patietn states she's had HHC in the past Disposition Plan: Patient to discharge home with patient care provider support and follow-up plans in place. Will monitor for need for HHC. Asya CHUA, RN, CM
[2019-07-03] MEDS: Fluconazole 100 MG Tablet 200 MG PO (11:30)
[2019-07-03 11:41] LABS: Bedside Glucose 141 mg/dL (70-110)
--- NOTE | 2019-07-03 13:49 | PCM.HP.ID ---
Problem List (1) Sepsis Status: Acute Qualifiers: Sepsis type: sepsis due to unspecified organism Sepsis acute organ dysfunction status: unspecified Qualified Code(s): A41.9 - Sepsis, unspecified organism Reason for Consult: sepsis Consulted by: Dr. Triana History of Present Illness: The patient is a 73 year old F with suprapubic cath, follows at [facility], presented with fever, chills, not feeling well. Started to feel a little funny on 07/01, on 07/02 had fever of 101 at home. No cough, no headache, no chest pain, no abd pain, no changes in urine. Came to ED, fever to 102.9, admitted on meropenem, feeling better today. LLE ulcer stable, some redness, no drainage. Full ROS performed and neg except as noted above. - Medical History Past Medical History (Chronic Problems): Chronic Problems (Last Reviewed 03/26/19 @ 14:49 by Rebecca Zavala MD) Ulcer of abdomen wall with fat layer exposed (Chronic) Ulcer of left groin with fat layer exposed (Chronic) Pressure ulcer of coccygeal region, stage 3 (Chronic) Morbid obesity (Chronic) Anxiety and depression (Chronic) HTN (hypertension) (Chronic) HLD (hyperlipidemia) (Chronic) Debility (Chronic) Depression (Chronic) VITA (obstructive sleep apnea) (Chronic) Candidal intertrigo (Chronic) Allergies/Adverse Reactions: Allergies adhesive tape Allergy (Verified 07/02/19 12:27) blisters Influenza Virus Vaccines Allergy (Verified 07/02/19 12:27) shortness of breath/severe wheezing iron Allergy (Verified 07/02/19 12:27) from IV form chest pressure and heart palpitations Sulfa (Sulfonamide Antibiotics) Allergy (Verified 07/02/19 12:27) Shortness of breath bactrim does not work for her-per pcp paperwork meloxicam [From Mobic] Adverse Reaction (Verified 07/02/19 12:27) gi upset seasonal allergies Allergy (Uncoded 07/02/19 12:27) Other Home Medications: Ambulatory Orders Medication Instructions Recorded Furosemide [Lasix] 20 mg PO BID 09/30/13 Albuterol Inhaler [Ventolin Hfa] 2 puff INHALATION Q4H PRN PRN 10/30/18 Baclofen 10 mg PO TID 10/30/18 Cholecalciferol (VIT D3) [Vitamin 1,000 unit PO DAILY 10/30/18 D3] Gabapentin [Neurontin] 600 mg PO BID 10/30/18 Lisinopril [Zestril] 10 mg PO DAILY 10/30/18 Multivitamins,Ther W-Minerals 1 tablet PO 4X/DAY 10/30/18 [Multivitamin With Minerals] Nystatin Powder [Mycostatin Powder] 1 applicatio TOPICAL BID PRN PRN 10/30/18 Oxybutynin Chloride [Ditropan Xl] 15 mg PO DAILY 10/30/18 Vitamin E 400 units PO DAILY 10/30/18 levETIRAcetam tablet [Keppra 500 mg PO QHS 10/30/18 tablet] metFORMIN HCl [Glucophage] 500 mg PO BID 10/30/18 Cyanocobalamin (Vitamin B-12) 1,000 mcg PO DAILY 12/17/18 [B-12] Pravastatin [Pravachol] 20 mg PO QHS 12/17/18 Duloxetine HCl 60 mg PO DAILY 03/22/19 Naproxen [Naprosyn] 500 mg PO BID PRN PRN 03/22/19 Ascorbic Acid [Vitamin C] 500 mg PO BID #180 cap 03/25/19 Diltiazem CD [Cardizem CD] 120 mg PO DAILY #30 capsule 03/26/19 Potassium Chloride [K-Dur] 10 meq PO DAILYCM #30 tablet 03/26/19 Methenamine Hippurate [Hiprex] 1 gm PO BID 04/05/19 Fluconazole 200 mg PO TU 07/02/19 Fluticasone Propionate 2 spry INHALATION DAILY PRN 07/02/19 Hydrocodone Bitart/Apap 5-325 1 tab PO Q6H PRN PRN 07/02/19 [[place] 5MG-325MG] Ranitidine [Zantac] 150 mg PO BID 07/02/19 Venlafaxine XR [Effexor Xr] 150 mg PO BID 07/02/19 - Social History Tobacco Use: cigarettes Vital Signs Temp Pulse Resp BP Pulse Ox 98.9 F 105 H 18 117/62 94 07/03/19 08:55 07/03/19 11:55 07/03/19 08:55 07/03/19 08:55 07/03/19 08:55 Oxygen Flow Rate (L/min) 2 Oxygen Delivery Method Nasal Cannula Weight: 142.9 kg Body Mass Index (BMI) 49.3 Microbiology Past 72 Hours 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 GNR lactose care management specialist Gram negative odin Laboratory Tests Past 24 Hrs 07/02/19 07/02/19 07/02/19 13:40 14:05 14:05 WBC RBC Hgb Hct MCV MCH MCHC RDW Std Deviation RDW Coeff of Jessi Plt Count MPV Immature Gran % (Auto) Neut % (Auto) Lymph % (Auto) [place] % (Auto) Eos % (Auto) Baso % (Auto) Absolute Neuts (auto) Absolute Lymphs (auto) Nucleated RBC % Sodium 133 L Potassium 4.7 Chloride 103 Carbon Dioxide 23.0 Anion Gap 7 BUN 33 H Creatinine 1.42 H Estim Creat Clear Calc 40.03 Est GFR (MDRD) Af Amer 47 L Est GFR (MDRD) Non-Af 39 L BUN/Creatinine Ratio 23.2 H Glucose 114 H Lactic Acid Calcium 9.4 Magnesium 2.1 Total Bilirubin 0.30 AST 12 L ALT 13 Alkaline Phosphatase 65 Total Protein 9.4 H Albumin 3.1 L Globulin 6.3 H Albumin/Globulin Ratio 0.5 L Urine Color Yellow Urine Clarity Sl. Cloudy Urine pH 7.0 Ur Specific [place] 1.010 Urine Protein 100 H Urine Glucose (UA) Normal Urine Ketones Negative Urine Occult Blood 250 H Urine Nitrite Positive H Urine Bilirubin Negative Urine Urobilinogen Normal Ur Leukocyte Esterase 500 H Urine RBC 25-50 SEEN Urine WBC 25-50 SEEN Ur Squamous Epith Cells 0-5 SEEN Urine Bacteria 1+ Urine Mucus 0 SEEN 07/02/19 07/02/19 07/03/19 21:13 21:13 04:38 WBC 11.4 H 8.3 RBC 3.57 L 3.23 L Hgb 9.9 L 9.0 L Hct 31.9 L 29.0 L MCV 89.4 89.8 MCH 27.7 27.9 MCHC 31.0 L 31.0 L RDW Std Deviation 53.7 H 54.7 H RDW Coeff of Jessi 16.5 H 16.9 H Plt Count 259 224 MPV 9.1 9.1 Immature Gran % (Auto) 0.600 0.700 Neut % (Auto) 84.8 H 80.5 H Lymph % (Auto) 7.8 L 11.3 L [place] % (Auto) 6.3 6.7 Eos % (Auto) 0.2 0.4 Baso % (Auto) 0.3 0.4 Absolute Neuts (auto) 9.7 H 6.7 Absolute Lymphs (auto) 0.89 0.94 Nucleated RBC % 0 0 Sodium Potassium Chloride Carbon Dioxide Anion Gap BUN Creatinine Estim Creat Clear Calc Est GFR (MDRD) Af Amer Est GFR (MDRD) Non-Af BUN/Creatinine Ratio Glucose Lactic Acid 1.6 Calcium Magnesium Total Bilirubin AST ALT Alkaline Phosphatase Total Protein Albumin Globulin Albumin/Globulin Ratio Urine Color Urine Clarity Urine pH Ur Specific [place] Urine Protein Urine Glucose (UA) Urine Ketones Urine Occult Blood Urine Nitrite Urine Bilirubin Urine Urobilinogen Ur Leukocyte Esterase Urine RBC Urine WBC Ur Squamous Epith Cells Urine Bacteria Urine Mucus 07/03/19 04:38 WBC RBC Hgb Hct MCV MCH MCHC RDW Std Deviation RDW Coeff of Jessi Plt Count MPV Immature Gran % (Auto) Neut % (Auto) Lymph % (Auto) [place] % (Auto) Eos % (Auto) Baso % (Auto) Absolute Neuts (auto) Absolute Lymphs (auto) Nucleated RBC % Sodium 138 Potassium 3.8 Chloride 104 Carbon Dioxide 26.0 Anion Gap 8 BUN 29 H Creatinine 1.42 H Estim Creat Clear Calc 34.82 Est GFR (MDRD) Af Amer 47 L Est GFR (MDRD) Non-Af 39 L BUN/Creatinine Ratio 20.4 H Glucose 110 H Lactic Acid Calcium 8.7 Magnesium Total Bilirubin AST ALT Alkaline Phosphatase Total Protein Albumin Globulin Albumin/Globulin Ratio Urine Color Urine Clarity Urine pH Ur Specific [place] Urine Protein Urine Glucose (UA) Urine Ketones Urine Occult Blood Urine Nitrite Urine Bilirubin Urine Urobilinogen Ur Leukocyte Esterase Urine RBC Urine WBC Ur Squamous Epith Cells Urine Bacteria Urine Mucus - Other Studies Radiology: [] reviewed Other Studies: [] Route of nutrition/ use of supplements: [] Nutritional Intake: [] IV Site: [] Henry Catheter: [] - Physical Exam General: Alert, Oriented x3, Cooperative, No apparent distress HEENT: Atraumatic, PERRLA, EOMI Neck: Supple, No Nodes Lungs: Clear to auscultation, Normal air movement Cardiovascular: Regular rate, No murmurs Abdomen: Soft, Non Tender, Non-Distended, Obese Extremities: Edema Skin: Ulcer/ Wound - L groin and pannus with erythema, some skin breakdown. IV Site: PICC, without redness Musculoskeletal: No Tenderness to Palpation of Joints or Extremities Neurological: Cranial nerves II-XII grossly intact - Assessment/Plan Antibiotics: [] Assessment/Plan: [] Active and Suspected Problems (Last Reviewed 03/26/19 @ 14:49 by Rebecca Zavala MD) Sepsis (Acute) sepsis due to suspected uti - suprapubic cath in place, changed this AM. Feeling better on meropenem, will continue based on prior growth. Will follow, thank you.
[2019-07-03] MEDS: Multivitamin (Healthy Eyes) Capsule 1 CAP PO ×2 (14:07→23:24)
[2019-07-03] MEDS: Acetaminophen 325 MG Tablet 650 MG PO ×2 (14:11→20:41)
--- NOTE | 2019-07-03 15:31 | CHAPLAIN ---
Type of Pastoral Visit _x__ Initial Visit ___ Follow-up Visit ___ On-call Visit ___ General Patient Visit ___ Spiritual Assessment ___ Family Conference ___ Bereavement ___ Rapid Response ___ Code Blue ___ Other (describe below) Pastoral Care Referral From _x__ Patient ___ Family ___ Nurse ___ Physician ___ Track Service Person ___ Global Compensation Director ___ Other (describe below) Sacrament/Intervention _x__ Active listening ___ Anointing ___ Synagogue ___ Bereavement ___ Communion ___ Diane exploration ___ _x__ Life review ___ Prayer ___ Reconciliation ___ Sacrament of Sick _x__ Supportive presence ___ Wedding ___ Other (describe below) Pastoral Comments
[2019-07-03 16:31] LABS: Bedside Glucose 114 mg/dL (70-110)
--- NOTE | 2019-07-03 20:57 | PN_ITS ---
Patient Problems: Active and Suspected Problems (Last Reviewed 03/26/19 @ 14:49 by Rebecca Zavala MD) Sepsis (Acute) Subjective: The patient is a 73-year-old female with a past medical history of morbid obesity, obstructive sleep apnea with intermittent CPAP usage, hypertension, suprapubic catheter, hyperlipidemia, chronic abdominal intertrigo beneath the pannus with frequent open wounds and chronic severe disability requiring her to use a WC who presented to the ED at [facility] on 07/02/2019 complaining of increasing weakness, fevers and confusion. Vital signs at presentation to the emergency room were temperature 103.4, heart rate 124, blood pressure 150/106, respiratory rate 16 and she was 93% saturated on room air. White blood cell count was elevated at 11.4 with left shift. Hemoglobin was 9.9 with normochromic normocytic indices. Platelet count was within normal limits. Sodium was decreased at 133 and the BUN was increased to 33 with a creatinine of 1.42, up from 0.89 in March 2019. Lactic acid was 1.6. LFTs were unremarkable. Urine analysis taken from the suprapubic catheter showed 25-50 RBCs per high-power field and 25-50 WBCs with 0-5 squamous epithelial cells and 1+ bacteria. Chest x-ray showed mild left lung base atelectasis versus infiltrate. She was admitted to the hospital and a PICC line was requested. IV meropenem was started in the emergency department and continued at admission. Urine and blood cultures were ordered. Consult was placed for Dr. Flores from infectious disease. All events of the past 24 hours of been reviewed. T-max is 103.4. Current temp at the time I examined her at 9 AM was 98.9. Vital signs are stable. White blood cell count is down to 8.3 today and the hemoglobin is 9.0 following hydration. Platelets remain within normal limits. Creatinine is stable at 1.42 and the BUN today is 29. Sodium is 138, up from 133 following hydration. Urine culture is growing 2 different colonies of gram-negative rods. she told me that she feels better than she did at admission she has been following with Dr. Dumont in the wound care center and the intertrigo and superficial wounds beneath the pannus are doing better. No sign of cellulitis of the pannus. Denies cough. No SOB, CP, N/V/diarrhea. Objective: PHYSICAL EXAM: GENERAL: alert, oriented X 3, Cooperative, NAD pleasant and appropriate ORAL: moist mucosa, no mucosal lesions NECK: supple, trachea midline LUNGS: CTA, symmetric chest expansion, diminished, no conversational dyspnea, not tachypnea, no accessory muscle use HEART: RRR, Normal S1 and S2, no rub, no gallop, no murmur appreciated ABDOMEN: soft, NT, ND, BS present, no guarding with palpation, morbidly obese EXTREMITIES: no edema, no cyanosis, no calf tenderness SKIN: there are superficial wounds beneath the pannus and there is a red rash with satellite lesions consistent with yeast. No evidenc of cellulitis NEUROLOGIC: no focal neurologic deficits, generalized weakness PSYCH: appropriate, normal affect, pleasant - Physical Exam Vital Signs Temp Pulse Resp BP Pulse Ox 99.4 F H 96 18 98/53 L 98 07/03/19 20:23 07/03/19 20:23 07/03/19 20:23 07/03/19 20:23 07/03/19 20:23 Oxygen Flow Rate (L/min) 3 Oxygen Delivery Method Room Air Weight: 315 lb 0.649 oz Body Mass Index (BMI) 49.3 Intake and Output for Last 24 Hours 07/01/19 07/02/19 07/03/19 23:59 23:59 23:59 Intake Total 992.08 / 992.08 3279.58 / 3279.58 Output Total 400 / 1100 2975 / 2975 Balance 592.08 / -107.92 304.58 / 304.58 Microbiology Past 72 Hours 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 Gram negative odin Laboratory Tests Past 24 Hrs 07/02/19 07/02/19 07/03/19 21:13 21:13 04:38 WBC 11.4 H 8.3 RBC 3.57 L 3.23 L Hgb 9.9 L 9.0 L Hct 31.9 L 29.0 L MCV 89.4 89.8 MCH 27.7 27.9 MCHC 31.0 L 31.0 L RDW Std Deviation 53.7 H 54.7 H RDW Coeff of Jessi 16.5 H 16.9 H Plt Count 259 224 MPV 9.1 9.1 Immature Gran % (Auto) 0.600 0.700 Neut % (Auto) 84.8 H 80.5 H Lymph % (Auto) 7.8 L 11.3 L [place] % (Auto) 6.3 6.7 Eos % (Auto) 0.2 0.4 Baso % (Auto) 0.3 0.4 Absolute Neuts (auto) 9.7 H 6.7 Absolute Lymphs (auto) 0.89 0.94 Nucleated RBC % 0 0 Sodium Potassium Chloride Carbon Dioxide Anion Gap BUN Creatinine Estim Creat Clear Calc Est GFR (MDRD) Af Amer Est GFR (MDRD) Non-Af BUN/Creatinine Ratio Glucose Lactic Acid 1.6 Calcium 07/03/19 04:38 WBC RBC Hgb Hct MCV MCH MCHC RDW Std Deviation RDW Coeff of Jessi Plt Count MPV Immature Gran % (Auto) Neut % (Auto) Lymph % (Auto) [place] % (Auto) Eos % (Auto) Baso % (Auto) Absolute Neuts (auto) Absolute Lymphs (auto) Nucleated RBC % Sodium 138 Potassium 3.8 Chloride 104 Carbon Dioxide 26.0 Anion Gap 8 BUN 29 H Creatinine 1.42 H Estim Creat Clear Calc 34.82 Est GFR (MDRD) Af Amer 47 L Est GFR (MDRD) Non-Af 39 L BUN/Creatinine Ratio 20.4 H Glucose 110 H Lactic Acid Calcium 8.7 POC Glucose 07/03/19 07/03/19 07/03/19 16:26 11:32 06:45 POC Glucose 114 H 141 H 117 H 07/02/19 21:12 POC Glucose 108 Medical Necessity - Tobacco Use Smoking Status: Current every day smoker Tobacco Use: Non-smoker Assessment/Plan All Active Problems (Last Reviewed 03/26/19 @ 14:49 by Rebecca Zavala MD) Urinary retention (Acute) Sepsis (Acute) UTI (urinary tract infection) (Acute) Sepsis (Acute) MICHAELLE (acute kidney injury) (Acute) Atrial arrhythmia (Acute) Suprapubic catheter dysfunction (Resolved) Impressions 1. Acute severe sepsis with acute renal failure secondary to suspected complicated urinary tract infection due to chronic suprapubic catheter present at admission. Started on meropenem at admission based on prior cultures. Dr. Flores has been consulted and I reviewed his consultation. Will continue meropenem until the final urine culture is available. The suprapubic catheter was changed in the a.m. on 07/03/[address] Andrews. 2. Acute renal failure-likely multifactorial secondary to severe sepsis and dehydration. Continue IV fluids. Hold nephrotoxic medications. Lisinopril placed on hold. Has been on Lasix so FENA will not likely be helpful at this point. recheck lab in the AM 3. Functional paraplegia-bedbound and wheelchair-bound for quite some time. 4. Seizure disorder on Keppra-continue outpatient medication 5. Abdominal intertrigo beneath the pannus-patient takes Diflucan 200 mg every Monday so will order today. Continue local wound care. Will continue to follow-up with Dr. Dumont at discharge in the wound care center 6. Obstructive sleep apnea-intermittently compliant with CPAP. Discussed this with the patient and advised she wear the CPAP any time she is sleeping. 7. Diabetes mellitus type 2/hyperlipidemia/hypertension/GERD -complicates care, management and prognosis 8. DVT prophylaxis with SCDs and Lovenox Code Visit Inpatient E&M: 34251 [facility] Hosp L3
[2019-07-03] MEDS: levETIRAcetam 500 MG Tablet PO (23:23)
[2019-07-03] MEDS: Pravastatin 20 MG Tablet PO (23:23)
[2019-07-03 23:45] LABS: Bedside Glucose 113 mg/dL (70-110)
[2019-07-04] VITALS (9 sets, daily range): BP systolic 102–141; BP diastolic 57–66; PULSE 84–96; RESP 16–18; TEMP 36.6; O2SAT 94–98
[2019-07-04] MEDS: 0.9% Normal Saline 1,000 ML 125 ML IV ×3 (03:46→19:50)
[2019-07-04] MEDS: Baclofen 10 MG Tablet PO ×3 (06:55→22:16)
[2019-07-04] MEDS: Multivitamin (Healthy Eyes) Capsule 1 CAP PO ×3 (06:55→22:16)
[2019-07-04] MEDS: Nystatin Powder 15gm Bottle 1 APPLIC TOPICAL ×3 (06:57→22:17)
[2019-07-04 07:16] LABS: Bedside Glucose 111 mg/dL (70-110)
--- NOTE | 2019-07-04 09:32 | NURSING ---
wound photo: yimi
--- NOTE | 2019-07-04 10:02 | CASEMGMT ---
Durable POA and Living will are scanned into the summary tab. Fabiana Ribeiro is listed as POA in the Durable POA form. CLIFFORD Beasley
--- NOTE | 2019-07-04 10:11 | PCM.PN.ID ---
Patient Problems: Active and Suspected Problems (Last Reviewed 03/26/19 @ 14:49 by Rebecca Zavala MD) Sepsis (Acute) Subjective: Feeling ok, no fever, no abd pain. - Physical Exam General: Alert, Cooperative, No apparent distress Lungs: Clear to auscultation, Normal air movement Cardiovascular: Regular rate, Regular Rhythm Abdomen: Soft, Non Tender, Non-Distended Skin: Rash Present - reviewed photos Vital Signs Temp Pulse Resp BP Pulse Ox 98 F 96 18 141/66 H 98 07/04/19 03:45 07/04/19 03:59 07/04/19 03:45 07/04/19 03:45 07/04/19 06:58 Oxygen Flow Rate (L/min) 3 Oxygen Delivery Method Nasal Cannula Weight: 142.9 kg Body Mass Index (BMI) 49.3 Intake and Output for Last 24 Hours 07/02/19 07/03/19 07/04/19 23:59 23:59 23:59 Intake Total 992.08 / 992.08 3279.58 / 4120.33 2403.33 / 2403.33 Output Total 400 / 1100 2975 / 4175 1850 / 1850 Balance 592.08 / -107.92 304.58 / -54.67 553.33 / 553.33 Microbiology Past 72 Hours 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 Feeling better on meropenem. Plan on home with meropenem depending on further susc testing. Wrote rx. Will follow, d/w case checker
[2019-07-04] MEDS: Gabapentin 600 MG Tablet PO ×2 (10:31→16:26)
[2019-07-04] MEDS: Venlafaxine XR 150 MG Capsule PO ×2 (10:32→22:16)
[2019-07-04] MEDS: Methenamine Hippurate 1 GM Tablet PO ×2 (10:32→22:16)
[2019-07-04] MEDS: Pantoprazole Sodium 40 MG Tablet PO (10:32)
[2019-07-04] MEDS: Enoxaparin 30 MG/0.3 ML Syringe SC ×2 (10:32→22:16)
[2019-07-04] MEDS: Ascorbic Acid 500 MG Tablet PO ×2 (10:32→16:25)
[2019-07-04] MEDS: dilTIAZem CD 120 MG Capsule PO (10:33)
[2019-07-04] MEDS: DULoxetine Hcl 60 MG Capsule PO (10:33)
[2019-07-04] MEDS: Tolterodine Tartrate 4 MG CAP.SA PO (10:33)
[2019-07-04] MEDS: Glucerna Shake 120 ML LIQUID PO ×3 (10:34→16:23)
--- NOTE | 2019-07-04 10:38 | CASEMGMT ---
Addendum entered by Asya Fitzpatrick 07/04/19 10:54: TONI MARTINES called [facility] to inquire about prescription coverage with patient's permission. BIN: [id number] N: [facility] ID: [id number] Original Note: TONI MARTINES updated that patient will require IV ATBs at discharge. TONI MARTINES in to discuss HHC and infusion companies. Patient provided with list of HHC and infusion companies. Patient would like HHC with [facility] whom she has had in the past. Patient would like [facility] for infusion company. TONI MARTINES will initiate referral to [facility] and [facility]. CM will continue to follow this patient and plan for a safe discharge.
[2019-07-04 11:30] LABS: Bedside Glucose 121 mg/dL (70-110)
[2019-07-04 16:31] LABS: Bedside Glucose 111 mg/dL (70-110)
--- NOTE | 2019-07-04 17:18 | PN_ITS ---
Patient Problems: Active and Suspected Problems (Last Reviewed 03/26/19 @ 14:49 by Rebecca Zavala MD) Sepsis (Acute) Subjective: Patient was seen and examined today, she has no complaints of any shortness of breath or chest pain. Patient's white blood cell count is normal, I discussed her care with infectious diseases, she currently is on meropenem, the plan is for the patient to go home on a few days of an IV antibiotic-infectious diseases is not sure which antibiotic that is going to be at this time. - Physical Exam General: Alert, Oriented x3, Cooperative, No apparent distress, Well developed HEENT: Atraumatic, PERRLA, EOMI, Normocephalic Oral: Moist Mucosa Neck: Supple, No JVD, Trachea Midline, Thyroid Normal Size and Texture Lungs: Clear to auscultation, Normal air movement, No rhonchi, No wheeze Cardiovascular: Regular rate, Regular Rhythm, Normal S1, Normal S2, No murmurs, PMI Normal, No rub noted, No Gallop Abdomen: Bowel Sounds Present, Soft, Non Tender, Non-Distended, Obese Extremities: No clubbing, No cyanosis, Capillary Refill Less than 3 Seconds Skin: No rashes, No breakdown Neurological: Cranial nerves II-XII grossly intact, Neuro grossly intact, Sensory exam intact to light touch and pain Psych/Mental Status: Normal Affect, Appropriate, Alert and oriented to time, place, person, mood and affect Vital Signs Temp Pulse Resp BP Pulse Ox 97.8 F 90 16 108/57 L 98 07/04/19 14:10 07/04/19 15:19 07/04/19 14:10 07/04/19 14:10 07/04/19 14:10 Oxygen Flow Rate (L/min) 3 Oxygen Delivery Method Room Air Weight: 142.9 kg Body Mass Index (BMI) 49.3 Intake and Output for Last 24 Hours 07/02/19 07/03/19 07/04/19 23:59 23:59 23:59 Intake Total 992.08 / 992.08 3279.58 / 4120.33 3023.33 / 3023.33 Output Total 400 / 1100 2975 / 4175 2850 / 2850 Balance 592.08 / -107.92 304.58 / -54.67 173.33 / 173.33 Microbiology Past 72 Hours 07/02/19 14:55 Blood Culture - Preliminary Blood Culture (Wb) - Right Hand No growth in 48 hours. 07/02/19 14:05 Blood Culture - Preliminary Blood Culture (Wb) - Arm Right No growth in 48 hours. 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 Gram negative odin POC Glucose 07/04/19 07/04/19 07/04/19 16:24 11:25 06:55 POC Glucose 111 H 121 H 111 H 07/03/19 23:31 POC Glucose 113 H Medical Necessity - Tobacco Use Smoking Status: Current every day smoker Tobacco Use: Non-smoker Assessment/Plan All Active Problems (Last Reviewed 03/26/19 @ 14:49 by Rebecca Zavala MD) Urinary retention (Acute) Sepsis (Acute) UTI (urinary tract infection) (Acute) Sepsis (Acute) MICHAELLE (acute kidney injury) (Acute) Atrial arrhythmia (Acute) Suprapubic catheter dysfunction (Resolved) #1 acute sepsis secondary to acute cystitis-urine cultures pending at this time, infectious diseases as the patient on meropenem, it is unknown whether she will need home IV antibiotics at the time of discharge. #2 chronic kidney disease stage III-patient's creatinine and BUN appeared normal in March 2019, however, review of the patient's other creatinine levels have been elevated indicating stage III chronic kidney disease. #3 morbid obesity #4 anemia-I will order iron levels on the patient #5 spinal stenosis #6 chronic debility secondary to spinal stenosis and morbid obesity #6 obstructive sleep apnea #7 essential hypertension #8 depression #9 chronic lower extremity tremors-etiology unclear, patient takes Keppra for the tremors, she has no history of seizure disorder Code Visit Inpatient E&M: 54112 [facility] Hosp L2
[2019-07-04] MEDS: levETIRAcetam 500 MG Tablet PO (22:16)
[2019-07-04] MEDS: Pravastatin 20 MG Tablet PO (22:16)
[2019-07-04] MEDS: Acetaminophen 325 MG Tablet 650 MG PO (22:22)
[2019-07-05 00:06] LABS: Bedside Glucose 130 mg/dL (70-110)
[2019-07-05 02:00] VITALS: BP 128/60; PULSE 88; RESP 16; TEMP 36.7; O2SAT 97
[2019-07-05 04:00] VITALS: PULSE 78; RESP 16; O2SAT 97
[2019-07-05] MEDS: 0.9% Normal Saline 1,000 ML 125 ML IV ×2 (04:01→12:10)
[2019-07-05] MEDS: Baclofen 10 MG Tablet PO ×2 (06:34→15:19)
[2019-07-05] MEDS: Multivitamin (Healthy Eyes) Capsule 1 CAP PO ×2 (06:34→09:13)
[2019-07-05] MEDS: Nystatin Powder 15gm Bottle 1 APPLIC TOPICAL (06:34)
[2019-07-05 08:46] VITALS: BP 117/66; PULSE 81; RESP 16; TEMP 36.3; O2SAT 94
[2019-07-05] MEDS: Gabapentin 600 MG Tablet PO (09:13)
[2019-07-05] MEDS: dilTIAZem CD 120 MG Capsule PO (09:14)
[2019-07-05] MEDS: Ascorbic Acid 500 MG Tablet PO (09:14)
[2019-07-05] MEDS: Tolterodine Tartrate 4 MG CAP.SA PO (09:15)
[2019-07-05] MEDS: Venlafaxine XR 150 MG Capsule PO (09:16)
[2019-07-05] MEDS: Enoxaparin 30 MG/0.3 ML Syringe SC (09:16)
[2019-07-05] MEDS: Methenamine Hippurate 1 GM Tablet PO (09:16)
[2019-07-05] MEDS: Pantoprazole Sodium 40 MG Tablet PO (09:17)
[2019-07-05] MEDS: Glucerna Shake 120 ML LIQUID PO ×2 (09:21→15:21)
--- NOTE | 2019-07-05 13:07 | CASEMGMT ---
TONI MARTINES updated that patient will discharge on oral ATBs. Referral to I for previous IV ATBs cancelled. TONI MARTINES updated the patient. Patient states there is no need for HHC since there will be no IV ATBs at discharge. TONI MARTINES cancelled referral to [facility] for HHC.
--- NOTE | 2019-07-05 13:22 | PCM.PN.ID ---
Patient Problems: Active and Suspected Problems (Last Reviewed 03/26/19 @ 14:49 by Rebecca Zavala MD) Sepsis (Acute) Subjective: Feeling well, no fever, no abd pain. - Physical Exam General: Alert, Cooperative, No apparent distress Lungs: Clear to auscultation, Normal air movement Cardiovascular: Regular rate, Regular Rhythm Abdomen: Soft, Non Tender, Non-Distended Skin: Ulcer/ Wound Vital Signs Temp Pulse Resp BP Pulse Ox 97.4 F L 81 16 117/66 94 07/05/19 08:46 07/05/19 08:46 07/05/19 08:46 07/05/19 08:46 07/05/19 08:46 Oxygen Flow Rate (L/min) 3 Oxygen Delivery Method Room Air Weight: 142.9 kg Body Mass Index (BMI) 49.3 Intake and Output for Last 24 Hours 07/03/19 07/04/19 07/05/19 23:59 23:59 23:59 Intake Total 3279.58 / 4120.33 5343.33 / 5583.33 2480 / 2480 Output Total 2975 / 4175 2850 / 4000 3250 / 3250 Balance 304.58 / -54.67 2493.33 / 1583.33 -770 / -770 Microbiology Past 72 Hours 07/02/19 13:40 Urine Culture - Final Urine Catheter - Catheter Escherichia coli Providencia stuartii 07/02/19 14:55 Blood Culture - Preliminary Blood Culture (Wb) - Right Hand No growth in 48 hours. 07/02/19 14:05 Blood Culture - Preliminary Blood Culture (Wb) - Arm Right No growth in 48 hours. POC Glucose 07/05/19 07/04/19 00:02 16:24 POC Glucose 130 H 111 H Medical Necessity - Tobacco Use Smoking Status: Current every day smoker Tobacco Use: Non-smoker Route of nutrition/ use of supplements: [] Nutritional Intake: [] IV Site: [] Henry Catheter: [] - Assessment/Plan Antibiotics: [] Assessment/Plan: [] Active and Suspected Problems (Last Reviewed 03/26/19 @ 14:49 by Rebecca Zavala MD) Sepsis (Acute) sepsis due to ecoli and providencia uti - suprapubic cath in place, changed 07/03. Feeling better on meropenem. Plan on home with po omnicef for 5 more days. Will follow as needed, d/c picc prior to going
[2019-07-05 15:13] VITALS: BP 123/60; PULSE 75; RESP 16; TEMP 36.9; O2SAT 98
[2019-07-05] MEDS: DULoxetine Hcl 60 MG Capsule PO (15:19)
--- NOTE | 2019-07-05 16:45 | DCINST_ITS ---
- Discharge Diagnoses Current Active Problems: Current Active and Chronic Problems (Last Reviewed 03/26/19 @ 14:49 by Rebecca Zavala MD) Sepsis (Acute) Morbid obesity (Chronic) Anxiety and depression (Chronic) HTN (hypertension) (Chronic) HLD (hyperlipidemia) (Chronic) You will use the following diet at home:: Calorie/Carbohydrate Controlled (specify 1200, 1400, etc) - 1800 becky Your food should be the consistency of: Regular Your liquids should be the consistency of: Regular/Thin Discharge Activity: Return to Normal Activity Weight Bearing Status: Full weight bearing Allergies/Adverse Reactions: Allergies adhesive tape Allergy (Verified 07/02/19 12:27) blisters Influenza Virus Vaccines Allergy (Verified 07/02/19 12:27) shortness of breath/severe wheezing iron Allergy (Verified 07/02/19 12:27) from IV form chest pressure and heart palpitations Sulfa (Sulfonamide Antibiotics) Allergy (Verified 07/02/19 12:27) Shortness of breath bactrim does not work for her-per pcp paperwork meloxicam [From Mobic] Adverse Reaction (Verified 07/02/19 12:27) gi upset seasonal allergies Allergy (Uncoded 07/02/19 12:27) Other Medications to take at Discharge Furosemide [Lasix] 20 mg PO BID 09/30/13 Albuterol Inhaler [Ventolin Hfa] 2 puff INHALATION Q4H PRN PRN 10/30/18 Baclofen 10 mg PO TID 10/30/18 Cholecalciferol (VIT D3) [Vitamin D3] 1,000 unit PO DAILY 10/30/18 Gabapentin [Neurontin] 600 mg PO BID 10/30/18 Lisinopril [Zestril] 10 mg PO DAILY 10/30/18 Multivitamins,Ther W-Minerals [Multivitamin With Minerals] 1 tablet PO 4X/DAY 10/30/18 Nystatin Powder [Mycostatin Powder] 1 applicatio TOPICAL BID PRN PRN 10/30/18 Oxybutynin Chloride [Ditropan Xl] 15 mg PO DAILY 10/30/18 Vitamin E 400 units PO DAILY 10/30/18 levETIRAcetam tablet [Keppra tablet] 500 mg PO QHS 10/30/18 metFORMIN HCl [Glucophage] 500 mg PO BID 10/30/18 Cyanocobalamin (Vitamin B-12) [B-12] 1,000 mcg PO DAILY 12/17/18 Pravastatin [Pravachol] 20 mg PO QHS 12/17/18 Duloxetine HCl 60 mg PO DAILY 03/22/19 Naproxen [Naprosyn] 500 mg PO BID PRN PRN 03/22/19 Ascorbic Acid [Vitamin C] 500 mg PO BID #180 cap 03/25/19 Diltiazem CD [Cardizem CD] 120 mg PO DAILY #30 capsule 03/26/19 Potassium Chloride [K-Dur] 10 meq PO DAILYCM #30 tablet 03/26/19 Methenamine Hippurate [Hiprex] 1 gm PO BID 04/05/19 Fluconazole 200 mg PO TU 07/02/19 Fluticasone Propionate 2 spry INHALATION DAILY PRN 07/02/19 Hydrocodone Bitart/Apap 5-325 [[place] 5/325] 1 tab PO Q6H PRN PRN 07/02/19 Ranitidine [Zantac] 150 mg PO BID 07/02/19 Venlafaxine XR [Effexor Xr] 150 mg PO BID 07/02/19 Cefdinir [Omnicef [equiv]] 300 mg PO Q12 #10 cap 07/05/19 The following prescriptions were given: Cefdinir [Omnicef [equiv]] 300 mg PO Q12 #10 cap Transmission Status: Received by [facility]/pharmacy #[id number] Primary Care Physician: oNy Chakraborty MD [Primary Care Provider] - Please follow up with your Primary Care Physician in: in one week Test Results: Test results from this visit will be discussed in further detail at your follow- up appointment, if applicable.
[2019-07-05] MEDS: Cefdinir 300 MG Capsule 600 MG PO (18:11)
--- NOTE | 2019-07-08 07:59 | DS.PCM_ITS ---
Discharge Date and Diagnosis Date of Admission: 07/02/19 Date of Discharge: 07/05/19 - Primary Discharge Diagnosis #1 acute sepsis secondary to acute cystitis present on admission due to E. coli and Providencia stuartii due to chronic suprapubic catheter #2 chronic kidney disease stage III #3 morbid obesity #4 anemia-type unknown #5 spinal stenosis #6 chronic debility secondary to spinal stenosis and morbid obesity #6 obstructive sleep apnea #7 essential hypertension #8 depression #9 chronic lower extremity tremors #10 pressure injury to coccyx present on admission, unstageable - Secondary Discharge Diagnosis Chronic Problems (Last Reviewed 03/26/19 @ 14:49 by Rebecca Zavala MD) Ulcer of abdomen wall with fat layer exposed (Chronic) Ulcer of left groin with fat layer exposed (Chronic) Pressure ulcer of coccygeal region, stage 3 (Chronic) Morbid obesity (Chronic) Anxiety and depression (Chronic) HTN (hypertension) (Chronic) HLD (hyperlipidemia) (Chronic) Debility (Chronic) Depression (Chronic) VITA (obstructive sleep apnea) (Chronic) Candidal intertrigo (Chronic) Hospital Course and Treatment Consultations 07/02/19 16:48 Consult: Onc/Wound/technology architect Routine Comment: Consult: Onc/Wound/technology architect Routine Comment: Reason for Consult:: Chronic abdominal wounds, intertrigo Operations: None Procedures: None Summary of Care Provided: The patient is a 73 year old F who was seen in the emergency room at [facility] chief complaint of fever. She also complained of malaise. Patient has a chronic suprapubic catheter, she also had a history of previous urinary tract infections some of which were severe. Work-up in the emergency room included a chemistry panel which showed a sodium of 133, potassium was 4.7, BUN was 33 and creatinine was 1.42. Urinalysis showed 500 leukocyte esterase and positive nitrites, patient had 25-50 WBCs and 25-50 RBCs in her urine. Lactate was ordered and was normal, CBC was ordered and was remarkable for elevated white blood cell count of 11.4 and hemoglobin of 9.9. Patient was admitted to [place] [id number], started on IV antibiotics, labs were monitored, she was seen by infectious diseases. Patient improved during her hospital stay, it was believed she had sepsis and not severe sepsis. On examination she appeared in good health and spirits, patient was morbidly obese. Vital signs as documented. Skin warm and dry and without overt rashes, there is excoriated areas under the patient's panniculus, patient had an eschared area over her coccyx,,,. Neck without JVD. Lungs clear. Heart exam notable for regular rhythm, normal sounds and absence of murmurs, rubs or gallops. Abdomen unremarkable and without evidence of organomegaly, masses, or abdominal aortic enlargement. Extremities nonedematous. Neuro: Cranial nerves II through XII are grossly intact, no focal motor deficits were noted, sensation to light touch and pinprick is intact. Psych: Patient is alert and oriented x3, she does not appear anxious or depressed Initially, it was felt the patient may need home IV antibiotics and a PICC line was inserted, after sensitivities returned it was noted that the organisms were susceptible to oral antibiotics and it was felt that the patient could be discharged home on oral antibiotics. On 07/05/2019, patient was seen and examine d and felt to be in stable condition for discharge home - Physical Exam Vital Signs Temp Pulse Resp BP Pulse Ox 98.5 F 75 16 123/60 H 98 07/05/19 15:13 07/05/19 15:13 07/05/19 15:13 07/05/19 15:13 07/05/19 15:13 Oxygen Flow Rate (L/min) 3 Oxygen Delivery Method Room Air Weight: 142.9 kg Body Mass Index (BMI) 49.3 Microbiology Past 72 Hours 07/02/19 14:55 Blood Culture - Final Blood Culture (Wb) - Right Hand No growth in 5 days. 07/02/19 14:05 Blood Culture - Final Blood Culture (Wb) - Arm Right No growth in 5 days. 07/02/19 13:40 Urine Culture - Final Urine Catheter - Catheter Escherichia coli Providencia stuartii Discharge Activity: Return to Normal Activity Weight Bearing Status: Full weight bearing Home Medications: Medications to take at Discharge Furosemide [Lasix] 20 mg PO BID 09/30/13 Albuterol Inhaler [Ventolin Hfa] 2 puff INHALATION Q4H PRN PRN 10/30/18 Baclofen 10 mg PO TID 10/30/18 Cholecalciferol (VIT D3) [Vitamin D3] 1,000 unit PO DAILY 10/30/18 Gabapentin [Neurontin] 600 mg PO BID 10/30/18 Lisinopril [Zestril] 10 mg PO DAILY 10/30/18 Multivitamins,Ther W-Minerals [Multivitamin With Minerals] 1 tablet PO 4X/DAY 10/30/18 Nystatin Powder [Mycostatin Powder] 1 applicatio TOPICAL BID PRN PRN 10/30/18 Oxybutynin Chloride [Ditropan Xl] 15 mg PO DAILY 10/30/18 Vitamin E 400 units PO DAILY 10/30/18 levETIRAcetam tablet [Keppra tablet] 500 mg PO QHS 10/30/18 metFORMIN HCl [Glucophage] 500 mg PO BID 10/30/18 Cyanocobalamin (Vitamin B-12) [B-12] 1,000 mcg PO DAILY 12/17/18 Pravastatin [Pravachol] 20 mg PO QHS 12/17/18 Duloxetine HCl 60 mg PO DAILY 03/22/19 Naproxen [Naprosyn] 500 mg PO BID PRN PRN 03/22/19 Ascorbic Acid [Vitamin C] 500 mg PO BID #180 cap 03/25/19 Diltiazem CD [Cardizem CD] 120 mg PO DAILY #30 capsule 03/26/19 Potassium Chloride [K-Dur] 10 meq PO DAILYCM #30 tablet 03/26/19 Methenamine Hippurate [Hiprex] 1 gm PO BID 04/05/19 Fluconazole 200 mg PO TU 07/02/19 Fluticasone Propionate 2 spry INHALATION DAILY PRN 07/02/19 Hydrocodone Bitart/Apap 5-325 [Davis 5/325] 1 tab PO Q6H PRN PRN 07/02/19 Ranitidine [Zantac] 150 mg PO BID 07/02/19 Venlafaxine XR [Effexor Xr] 150 mg PO BID 07/02/19 Cefdinir [Omnicef [equiv]] 300 mg PO Q12 #10 cap 07/05/19 Following Prescrptions Were Given to Patient: Cefdinir [Omnicef [equiv]] 300 mg PO Q12 #10 cap Transmission Status: Received by [facility]/pharmacy #[id number] Primary Care Physician: Noy Chakraborty MD [Primary Care Provider] - Please follow up with your Primary Care Physician in: in one week Disposition: Home Minutes spent on discharge:: 32 Patient Condition:: Stable Medical Necessity - Tobacco Use Smoking Status: Current every day smoker Tobacco Use: Non-smoker Meaningful Use Info Meaningful Use Diagnoses (Choose all that apply): None applicable Code Visit Inpatient E&M: 48759 Disch Hosp
--- NOTE | 2019-07-08 16:07 | CASEMGMT ---
TONI MARTINES Discharge Follow-up Phone Call: CHRISBao: Chantell Strata: 4 Call Date: 07/08/19 Discharge Date: 07/05/19 Time of Call: 1605 Duration: 5 Admitting Diagnosis: Sepsis, complicated UTI TONI MARTINES completed follow-up phone after recent hospitalization. Patient is doing well. Patient states she has no questions or concerns regarding discharge instructions. Patient was able to pickup prescripts. Patient has follow-up appt in 3 weeks with PCP. Patient had no further questions at this time.
== END 2019-07-05 18:15 | disposition home or self-care (01) | DRG 698 ==
LOC: ED 12:55 → MS3 17:07
PROVIDERS: Internal Medicine; Admitting Provider Family Medicine; Emergency Provider Emergency Medicine; Family Provider Internal Medicine; PCP Internal Medicine; Referring Provider Family Medicine; Visit Provider Internal Medicine
DX: T83.510A Infection and inflammatory reaction due to cystostomy catheter, initial encounter (principal); A41.51 Sepsis due to Escherichia coli [E. coli]; A41.59 Other Gram-negative sepsis; Z68.42 Body mass index [BMI] 45.0-49.9, adult; N30.00 Acute cystitis without hematuria; Z99.3 Dependence on wheelchair; F44.4 Conversion disorder with motor symptom or deficit; Z74.01 Bed confinement status; E78.5 Hyperlipidemia, unspecified; G40.909 Epilepsy, unspecified, not intractable, without status epilepticus; E66.01 Morbid (severe) obesity due to excess calories; L30.4 Erythema intertrigo; G47.33 Obstructive sleep apnea (adult) (pediatric); K21.9 Gastro-esophageal reflux disease without esophagitis; M48.00 Spinal stenosis, site unspecified; R25.1 Tremor, unspecified; N18.3 Chronic kidney disease, stage 3 (moderate); I12.9 Hypertensive chronic kidney disease with stage 1 through stage 4 chronic kidney disease, or unspecified chronic kidney disease; Z93.59 Other cystostomy status; D64.9 Anemia, unspecified; L89.150 Pressure ulcer of sacral region, unstageable; Z79.84 Long term (current) use of oral hypoglycemic drugs; Z87.440 Personal history of urinary (tract) infections; E11.22 Type 2 diabetes mellitus with diabetic chronic kidney disease
CPT/HCPCS: 36415; 36569; 71045; 80048; 80053; 81001; 82962; 83605; 83735; 85025; 87040; 87077; 87086; 87088; 87186; 94003; 94660; 97162; 97166; 97802; 99284; J2185; J7030; A4216

== ENCOUNTER 2019-07-12 13:00 | Outpatient (RCR) | payer MEDICARE, OTHER, SELFPAY ==
[2019-06-13 00:53] VITALS: BP 140/63; PULSE 63; RESP 16; TEMP 37
[2019-06-21 12:59] VITALS: BP 145/82; PULSE 88; RESP 20; TEMP 36.4; BMI 52.8
--- NOTE | 2019-06-21 13:18 | PCM.PN.ID ---
Subjective: Had increased L groin/pannus breakdown, drainage, irritation, and redness. Cx taken 2 weeks ago. Overall improved with keeping it more dry. No fever. Took cipro for 5 days last week for torrez change. - Physical Exam General: Alert, Cooperative, No apparent distress Lungs: Clear to auscultation, Normal air movement Cardiovascular: Regular rate, Regular Rhythm Abdomen: Soft, Non Tender, Non-Distended Skin: Ulcer/ Wound - improved, no induration or purulence Vital Signs Temp Pulse Resp BP 97.5 F L 88 20 H 145/82 H 06/21/19 12:59 06/21/19 12:59 06/21/19 12:59 06/21/19 12:59 Weight: 149.685 kg Body Mass Index (BMI) 52.8 Medical Necessity - Tobacco Use Smoking Status: Former smoker Tobacco Use: Non-smoker Route of nutrition/ use of supplements: [] Nutritional Intake: [] IV Site: [] Torrez Catheter: [] - Assessment/Plan Antibiotics: [] Assessment/Plan: [] R groin ulcer - recent cx without purulence, but growth of PsA, providencia, corynebacteria, anaerobes. Currently improved without abx for past 6 days. Only treatment option would likely be IV with picc placement, but given lack of purulence and systemic systems, agree with current management and watching off of abx. Will follow as needed, d/w Dr. Dumont.
--- NOTE | 2019-06-21 17:40 | PN.PCM_ITS ---
(1) Ulcer of left groin with fat layer exposed Status: Chronic Current Visit: Yes Code(s): L98.492 - Non-pressure chronic ulcer of skin of other sites with fat layer exposed (2) Pressure ulcer of coccygeal region, stage 3 Status: Chronic Current Visit: Yes Code(s): L89.153 - Pressure ulcer of sacral region, stage 3 (3) Debility Status: Chronic Current Visit: Yes Code(s): R53.81 - Other malaise (4) Candidal intertrigo Status: Chronic Current Visit: Yes Code(s): B37.2 - Candidiasis of skin and nail Type of Wound Date of Service: 06/21/19 Chief Complaint: ulcers of left groin and abdomen, pressure ulcer of coccyx History of Wound: Samra is a 73 yo woman who presents to the wound center for ulcers of left groin and abdomen referred by wound nurse at [facility]. She was recently hospitalized at [facility] for urosepsis. She was on IV antibiotics of Meropenem and Vancomycin. She is morbidly obese and has problems with candidal intertrigo and has ulcers that open frequently for several years. She was using towels to keep moisture from accumulating under her skin folds but this has been ineffective. She started using InstaDry sheets since discharge from the hospital which has improved the moisture in her folds. She has been using nystatin powder as well. She has been using bacitracin to the ulcer of her abdomen. She has an indwelling suprapubic catheter that is changed monthly. She has heavy drainage from her ulcers. She is wheelchair bound and has an aid that helps her daily for a few hours per day. She denies fever or chills. In May 2019, she reports that she has a chronic ulcer of her coccyx area that was previously surgically debrided that comes and goes and has gotten worse since she was in the [facility] living in early [facility]. Progress of Wound: Samra is here for follow up of ulcers of her left groin. She is tolerating Fibracol dressings to left groin and continues to use Interdry strips to her groin area to wick away moisture. She has had improvement in erythema. She was seen by Dr. Flores and due to improvement in her ulcer decision was made to hold off on antibiotic treatment. She has moderate to heavy drainage from the ulcers of her left groin. She is tolerating fibracol to her coccyx ulcer. Her mid-abdomen ulcer remains healed. She denies fever or chills or eryt noe or increased drainage from previous. - Physical Exam Vital Signs Temp Pulse Resp BP 97.5 F L 88 20 H 145/82 H 06/21/19 12:59 06/21/19 12:59 06/21/19 12:59 06/21/19 12:59 General: Alert, Oriented x3, Cooperative, No apparent distress HEENT: Atraumatic, Normocephalic Oral: Moist Mucosa Lungs: Clear to auscultation Abdomen: Soft, Non Tender, Obese Skin: Ulcer/ Wound Wound Measurements and Assessment WC - Nurse 1 - General Ulcer Measurement Start: 06/21/19 12:58 Freq: Status: Active Protocol: Activity Type Activity Date Activity User E-Sign Co-Sign Detail Recorded Client Recorded Date Recorded By Document 06/21/19 12:59 DL [id number] 06/21/19 13:04 DL 06/21/19 12:59 Wound Center Nurse 1 [Ulcer Assessment] #3 Coccyx -Current Size (cm) - Length 1.4 -Current Size (cm) - Width 0.1 -Current Size (cm) - Depth 0.3 -Total Square Cm 0.14 -Photo Taken No -Exudate Amt Small -Exudate Type Serosanguineous -Wound Margin Thickened -Granulation Amt Medium (34-66%) -Granulation Quality [place] -Necrosis Amt Medium (34-66%) -Necrotic Tissue Type Adherent Slough -Structure Exposed N/A -Texture (Jessica-wound Skin Appearance) Scarring -Moisture (Jessica-wound Skin Appearance No Abnormality ) -Color (Jessica-wound Skin Appearance) Rubor -Temperature (Jessica-wound Skin No Abnormality Appearance) (Pt Warm) -Tenderness on Palpation (Jessica-wound No Skin Appearance) -Ulcer Cleansing Wound Cleanser -Foul Odor after Cleansing No -Anesthetic Used 5% Lidocaine Gel #1 left abd fold cluster -Current Size (cm) - Length 4.5 -Current Size (cm) - Width 3.8 -Current Size (cm) - Depth 0.1 -Total Square Cm 17.10 -Photo Taken No -Exudate Amt Small -Exudate Type Serosanguineous -Wound Margin Indistinct, Non -Visible -Granulation Amt Large (67-100%) -Granulation Quality Red -Necrosis Amt Small (1-33%) -Structure Exposed N/A -Texture (Jessica-wound Skin Appearance) Excoriation, Scarring -Color (Jessica-wound Skin Appearance) Erythema,Rubor -Temperature (Jessica-wound Skin No Abnormality Appearance) (Pt Warm) -Tenderness on Palpation (Jessica-wound No Skin Appearance) -Ulcer Cleansing Wound Cleanser -Foul Odor after Cleansing No -Anesthetic Used 4% Lidocaine Solution WC - Nurse 2 - General Ulcer CM Notes Start: 06/21/19 12:58 Freq: Status: Active Protocol: Activity Type Activity Date Activity User E-Sign Co-Sign Detail Recorded Client Recorded Date Recorded By Document 06/21/19 13:42 DV [id number] 06/21/19 13:44 DV 06/21/19 13:42 Wound Center Nurse 2 [Procedure/Treatment] #3 Coccyx -Time 13:42 -Correct Patient Yes -Correct Side, Site, Position Yes -Correct Procedure Yes -Procedure Performed Yes -Type of Procedure Debridement -Clinical Debridement Subcutaneous -Post Debridement Size (cm) - Length 1.4 -Post Debridement Size (cm) - Width 1.8 -Post Debridement Size (cm) - Depth 0.4 -Total Square Cm 2.52 -Wound/Ulcer Outcome Not Healed -Ulcer Cleansing Rinsed/ Irrigated with Saline -Foul Odor after Cleansing No -Bioengineered Tissue No -Bleeding Controlled with Pressure -Treatment Response Procedure Tolerated Well #1 left abd fold cluster -Time 13:43 -Correct Patient Yes -Correct Side, Site, Position Yes -Correct Procedure Yes -Procedure Performed Yes -Type of Procedure Debridement -Clinical Debridement Subcutaneous -Post Debridement Size (cm) - Length 3.0 -Post Debridement Size (cm) - Width 1.5 -Post Debridement Size (cm) - Depth 0.1 -Total Square Cm 4.50 -Wound/Ulcer Outcome Not Healed -Ulcer Cleansing Rinsed/ Irrigated with Saline -Foul Odor after Cleansing No -Bioengineered Tissue No -Bleeding Controlled with Pressure -Offloading No -Treatment Response Procedure Tolerated Well [See Physician Procedure note for Specifics] Pain Scale: 0-10 Numeric [Pain] -Is Patient Pain Free? Yes Psych/Mental Status: Normal Affect, Appropriate Debridement Note Post-Debridement Measurements/Treatment ÁLVARO - Nurse 2 - General Ulcer CM Notes Start: 06/21/19 12:58 Freq: Status: Active Protocol: Activity Type Activity Date Activity User E-Sign Co-Sign Detail Recorded Client Recorded Date Recorded By Document 06/21/19 13:42 DV [id number] 06/21/19 13:44 DV 06/21/19 13:42 Wound Center Nurse 2 #3 Coccyx -Time 13:42 -Correct Patient Yes -Correct Side, Site, Position Yes -Correct Procedure Yes -Procedure Performed Yes -Type of Procedure Debridement -Clinical Debridement Subcutaneous -Post Debridement Size (cm) - Length 1.4 -Post Debridement Size (cm) - Width 1.8 -Post Debridement Size (cm) - Depth 0.4 -Total Square Cm 2.52 -Wound/Ulcer Outcome Not Healed -Ulcer Cleansing Rinsed/ Irrigated with Saline -Foul Odor after Cleansing No -Bioengineered Tissue No -Bleeding Controlled with Pressure -Treatment Response Procedure Tolerated Well #1 left abd fold cluster -Time 13:43 -Correct Patient Yes -Correct Side, Site, Position Yes -Correct Procedure Yes -Procedure Performed Yes -Type of Procedure Debridement -Clinical Debridement Subcutaneous -Post Debridement Size (cm) - Length 3.0 -Post Debridement Size (cm) - Width 1.5 -Post Debridement Size (cm) - Depth 0.1 -Total Square Cm 4.50 -Wound/Ulcer Outcome Not Healed -Ulcer Cleansing Rinsed/ Irrigated with Saline -Foul Odor after Cleansing No -Bioengineered Tissue No -Bleeding Controlled with Pressure -Offloading No -Treatment Response Procedure Tolerated Well Pain Scale: 0-10 Numeric Is Patient Pain Free? Yes Wound debrided: left abdominal fold ulcer Laterality: Left Type of Debridement: Excisional debridement Anesthesia Used: 4% Lidocaine Solution Depth: Down to and including healthy tissue, in the subcutaneous layer Percentage of wound debrided: 100 Instrument Used: - - gauze Tissue Removed: yellow slough, devitalized tissue Severity: Fat Layer Exposed Amount of bleeding with debridement: Mild Bleeding Controlled with: Compression and gauze Patient tolerated procedure well - Additional Wound Wound debrided: coccyx Laterality: Not Applicable Wound Grade/Stage: Stage 3 Type of Debridement: Excisional debridement Anesthesia Used: 4% Lidocaine Solution Depth: Down to and including healthy tissue, in the subcutaneous layer Percentage of wound debrided: 100 Instrument Used: 5mm curette Tissue Removed: yellow slough, devitalized tissue Severity: Fat Layer Exposed Amount of bleeding with debridement: Mild Bleeding Controlled with: Compression and gauze Patient tolerated procedure: Patient tolerated procedure well Assessment/Plan Active Problems (Last Reviewed 03/26/19 @ 14:49 by Rebecca Zavala MD) Ulcer of left groin with fat layer exposed (Chronic) Pressure ulcer of coccygeal region, stage 3 (Chronic) Debility (Chronic) Candidal intertrigo (Chronic) Assessment: ulcers of left groin. morbid obesity. Candidal intertrigo Plan: Samra's ulcers were evaluated today. Her left groin cluster is improved. Will have her use Fibracol to the ulcers of her left lower abdomen and coccyx and interdry sache to her abdominal fold area to absorb moisture and prevent ulcers from developing due to the heavy drainage. Diflucan will be continued once weekly to treat candidal intertrigo. Will have her take this weekly to every other week during the summer due to sweating and heat and her body habitus and chronic yeast which are causing her to develop ulcers. Encouraged her to increase protein intake and offload the areas of her ulcers. Advised to call with any fever, chills, increased drainage. F/u in 2 weeks.
[2019-07-12 13:15] VITALS: BP 100/49; PULSE 81; RESP 16; TEMP 36.4; BMI 52.8
--- NOTE | 2019-07-12 18:27 | PN.PCM_ITS ---
(1) Ulcer of left groin with fat layer exposed Status: Chronic Current Visit: Yes Code(s): L98.492 - Non-pressure chronic ulcer of skin of other sites with fat layer exposed (2) Pressure ulcer of coccygeal region, stage 3 Status: Chronic Current Visit: Yes Code(s): L89.153 - Pressure ulcer of sacral region, stage 3 (3) Debility Status: Chronic Current Visit: Yes Code(s): R53.81 - Other malaise (4) Candidal intertrigo Status: Chronic Current Visit: Yes Code(s): B37.2 - Candidiasis of skin and nail Type of Wound Date of Service: 07/12/19 Chief Complaint: ulcers of left groin and abdomen, pressure ulcer of coccyx History of Wound: Samra is a 73 yo woman who presents to the wound center for ulcers of left groin and abdomen referred by wound nurse at [facility]. She was recently hospitalized at [facility] for urosepsis. She was on IV antibiotics of Meropenem and Vancomycin. She is morbidly obese and has problems with candidal intertrigo and has ulcers that open frequently for several years. She was using towels to keep moisture from accumulating under her skin folds but this has been ineffective. She started using InstaDry sheets since discharge from the hospital which has improved the moisture in her folds. She has been using nystatin powder as well. She has been using bacitracin to the ulcer of her abdomen. She has an indwelling suprapubic catheter that is changed monthly. She has heavy drainage from her ulcers. She is wheelchair bound and has an aid that helps her daily for a few hours per day. She denies fever or chills. In May 2019, she reports that she has a chronic ulcer of her coccyx area that was previously surgically debrided that comes and goes and has gotten worse since she was in the [place] [facility] in early 2018. Progress of Wound: Samra is here for follow up of ulcers of her left groin. She is tolerating Fibracol dressings to left groin and continues to use Interdry strips to her groin area to wick away moisture. She has had improvement in erythema. She has moderate to heavy drainage from the ulcers of her left groin. She is tolerating fibracol to her coccyx ulcer and has moderate to heavy drainage from this ulcer. Her mid-abdomen ulcer remains healed. She denies fever or chills or erythema or increased drainage from previous. - Physical Exam Vital Signs Temp Pulse Resp BP 97.5 F L 81 16 100/49 L 07/12/19 13:15 07/12/19 13:15 07/12/19 13:15 07/12/19 13:15 General: Alert, Oriented x3, Cooperative, No apparent distress HEENT: Atraumatic, Normocephalic Oral: Moist Mucosa Abdomen: Soft, Non Tender, Obese Extremities: Edema Skin: Ulcer/ Wound Wound Measurements and Assessment WC - Nurse 1 - General Ulcer Measurement Start: 06/21/19 12:58 Freq: Status: Active Protocol: Activity Type Activity Date Activity User E-Sign Co-Sign Detail Recorded Client Recorded Date Recorded By Document 07/12/19 13:15 [facility] [id number] 07/12/19 13:27 [facility] 07/12/19 13:15 Wound Center Nurse 1 [Ulcer Assessment] #3 Coccyx -Combined with other wound No -Current Size (cm) - Length 0.7 -Current Size (cm) - Width 1.4 -Current Size (cm) - Depth 0.1 -Total Square Cm 0.98 -Photo Taken No -Epithelialization None Present -Tunneling No -Undermining/Tunneling No -Circular Undermining No -Exudate Amt Small -Exudate Type Serosanguineous -Wound Margin Thickened -Granulation Amt Large (67-100%) -Granulation Quality Red -Slough/Fibrin Yes -Necrosis Amt Small (1-33%) -Necrotic Tissue Type Adherent Slough -Texture (Jessica-wound Skin Appearance) Assessed, Scarring -Moisture (Jessica-wound Skin Appearance Assessed, ) Maceration -Color (Jessica-wound Skin Appearance) Assessed,Palor -Temperature (Jessica-wound Skin No Abnormality Appearance) (Pt Warm) -Tenderness on Palpation (Jessica-wound No Skin Appearance) -Ulcer Cleansing Rinsed/ Irrigated with Saline -Foul Odor after Cleansing No -Anesthetic Used 5% Lidocaine Gel #1 left abd fold cluster -Combined with other wound No -Current Size (cm) - Length 7.5 -Current Size (cm) - Width 3.7 -Current Size (cm) - Depth 0.1 -Total Square Cm 27.75 -Photo Taken No -Epithelialization None Present -Tunneling No -Undermining/Tunneling No -Circular Undermining No -Exudate Amt Small -Exudate Type Sanguineous -Wound Margin Flat & Intact -Granulation Amt Large (67-100%) -Granulation Quality Red -Slough/Fibrin No -Necrosis Amt None Present (0 %) -Texture (Jessica-wound Skin Appearance) Assessed, Excoriation, Rash -Moisture (Jessica-wound Skin Appearance Assessed ) -Color (Jessica-wound Skin Appearance) Assessed, Erythema -Temperature (Jessica-wound Skin No Abnormality Appearance) (Pt Warm) -Tenderness on Palpation (Jessica-wound No Skin Appearance) -Ulcer Cleansing soap and water -Foul Odor after Cleansing No -Anesthetic Used 4% Lidocaine Solution WC - Nurse 2 - General Ulcer CM Notes Start: 06/21/19 12:58 Freq: Status: Active Protocol: Activity Type Activity Date Activity User E-Sign Co-Sign Detail Recorded Client Recorded Date Recorded By Document 07/12/19 13:52 MW [id number] 07/12/19 13:55 MW 07/12/19 13:52 Wound Center Nurse 2 [Procedure/Treatment] #3 Coccyx -Time 13:52 -Correct Patient Yes -Correct Side, Site, Position Yes -Correct Procedure Yes -Procedure Performed Yes -Type of Procedure Debridement -Clinical Debridement Subcutaneous -Post Debridement Size (cm) - Length 1.0 -Post Debridement Size (cm) - Width 1.3 -Post Debridement Size (cm) - Depth 0.3 -Total Square Cm 1.30 -Wound/Ulcer Outcome Not Healed -Ulcer Cleansing Rinsed/ Irrigated with Saline -Foul Odor after Cleansing No -Bioengineered Tissue No -Bleeding Controlled with Pressure -Offloading No -Treatment Response Procedure Tolerated Well #1 left abd fold cluster -Time 13:52 -Correct Patient Yes -Correct Side, Site, Position Yes -Correct Procedure Yes -Procedure Performed No -Post Debridement Size (cm) - Length 1.5 -Post Debridement Size (cm) - Width 1.0 -Post Debridement Size (cm) - Depth 0.1 -Total Square Cm 1.50 -Wound/Ulcer Outcome Not Healed -Ulcer Cleansing Not Cleansed -Foul Odor after Cleansing No -Bioengineered Tissue No -Bleeding Controlled with NA -Offloading No -Treatment Response Procedure Tolerated Well [See Physician Procedure note for Specifics] Pain Scale: 0-10 Numeric [Pain] -Is Patient Pain Free? Yes Psych/Mental Status: Normal Affect, Appropriate Debridement Note Post-Debridement Measurements/Treatment WC - Nurse 2 - General Ulcer CM Notes Start: 06/21/19 12:58 Freq: Status: Active Protocol: Activity Type Activity Date Activity User E-Sign Co-Sign Detail Recorded Client Recorded Date Recorded By Document 06/21/19 13:42 DV [id number] 06/21/19 13:44 DV Document 07/12/19 13:52 MW [id number] 07/12/19 13:55 MW 06/21/19 07/12/19 13:42 13:52 Wound Center Nurse 2 #3 Coccyx -Time 13:42 13:52 -Correct Patient Yes Yes -Correct Side, Site, Position Yes Yes -Correct Procedure Yes Yes -Procedure Performed Yes Yes -Type of Procedure Debridement Debridement -Clinical Debridement Subcutaneous Subcutaneous -Post Debridement Size (cm) - Length 1.4 1.0 -Post Debridement Size (cm) - Width 1.8 1.3 -Post Debridement Size (cm) - Depth 0.4 0.3 -Total Square Cm 2.52 1.30 -Wound/Ulcer Outcome Not Healed Not Healed -Ulcer Cleansing Rinsed/ Rinsed/ Irrigated with Irrigated with Saline Saline -Foul Odor after Cleansing No No -Bioengineered Tissue No No -Bleeding Controlled with Pressure Pressure -Offloading No -Treatment Response Procedure Procedure Tolerated Well Tolerated Well #1 left abd fold cluster -Time 13:43 13:52 -Correct Patient Yes Yes -Correct Side, Site, Position Yes Yes -Correct Procedure Yes Yes -Procedure Performed Yes No -Type of Procedure Debridement -Clinical Debridement Subcutaneous -Post Debridement Size (cm) - Length 3.0 1.5 -Post Debridement Size (cm) - Width 1.5 1.0 -Post Debridement Size (cm) - Depth 0.1 0.1 -Total Square Cm 4.50 1.50 -Wound/Ulcer Outcome Not Healed Not Healed -Ulcer Cleansing Rinsed/ Not Cleansed Irrigated with Saline -Foul Odor after Cleansing No No -Bioengineered Tissue No No -Bleeding Controlled with Pressure NA -Offloading No No -Treatment Response Procedure Procedure Tolerated Well Tolerated Well Pain Scale: 0-10 Numeric Is Patient Pain Free? Yes Yes Wound debrided: coccyx Wound Grade/Stage: Stage III Type of Debridement: Excisional debridement Anesthesia Used: 4% Lidocaine Solution, 5% Lidocaine Gel Depth: Down to and including healthy tissue, in the subcutaneous layer Percentage of wound debrided: 100 Instrument Used: 7mm curette Tissue Removed: yellow slough, devitalized tissue Severity: Fat Layer Exposed Amount of bleeding with debridement: Mild Bleeding Controlled with: Compression and gauze Patient tolerated procedure well - Additional Wound Wound debrided: left abdominal fold cluster Laterality: Left Anesthesia Used: 4% Lidocaine Solution Operative Diagnosis: no debridement completed. No accumulation of slough Assessment/Plan Active Problems (Last Reviewed 03/26/19 @ 14:49 by Rebecca Zavala MD) Ulcer of left groin with fat layer exposed (Chronic) Pressure ulcer of coccygeal region, stage 3 (Chronic) Debility (Chronic) Candidal intertrigo (Chronic) Assessment: ulcers of left groin. morbid obesity. Candidal intertrigo Plan: Samra's ulcers were evaluated today. Her left groin cluster is improved. Will have her continue to use Fibracol to the ulcers of her left lower abdomen and coccyx and interdry sache to her abdominal fold area to absorb moisture and prevent ulcers from developing due to the heavy drainage. Diflucan will be continued once weekly to treat candidal intertrigo. Will have her take this weekly to every other week due to sweating and heat and her body habitus and chronic yeast which are causing her to develop ulcers. Encouraged her to increase protein intake and offload the areas of her ulcers. Advised to call with any fever, chills, increased drainage. F/u in 2 weeks.
== END 2019-07-13 23:59 ==
LOC: WC 13:00
PROVIDERS: Family Provider Internal Medicine; PCP Internal Medicine; Visit Provider Family Medicine
DX: L98.492 Non-pressure chronic ulcer of skin of other sites with fat layer exposed (principal); L89.153 Pressure ulcer of sacral region, stage 3; Z87.891 Personal history of nicotine dependence; E66.01 Morbid (severe) obesity due to excess calories; B37.2 Candidiasis of skin and nail; Z68.43 Body mass index [BMI] 50.0-59.9, adult; Z71.3 Dietary counseling and surveillance; Z99.3 Dependence on wheelchair; L30.4 Erythema intertrigo
CPT/HCPCS: 11042

== ENCOUNTER 2019-08-09 15:00 | Outpatient (RCR) | payer MEDICARE, OTHER, SELFPAY ==
[2019-07-14 00:45] VITALS: BP 100/49; PULSE 81; RESP 16; TEMP 36.4; BMI 49.3
[2019-07-26 16:35] VITALS: BP 119/60; PULSE 79; RESP 18; TEMP 36.1; BMI 49.3
--- NOTE | 2019-07-26 19:39 | PCM.WC.PN ---
(1) Ulcer of left groin with fat layer exposed Status: Chronic Code(s): L98.492 - Non-pressure chronic ulcer of skin of other sites with fat layer exposed (2) Pressure ulcer of coccygeal region, stage 3 Status: Chronic Code(s): L89.153 - Pressure ulcer of sacral region, stage 3 (3) Morbid obesity Status: Chronic Code(s): E66.01 - Morbid (severe) obesity due to excess calories (4) Candidal intertrigo Status: Chronic Code(s): B37.2 - Candidiasis of skin and nail Type of Wound Date of Service: 07/26/19 Chief Complaint: ulcers of left groin and abdomen, pressure ulcer of coccyx History of Wound: Samra is a 73 yo woman who presents to the wound center for ulcers of left groin and abdomen referred by wound nurse at [facility]. She was recently hospitalized at [facility] for urosepsis. She was on IV antibiotics of Meropenem and Vancomycin. She is morbidly obese and has problems with candidal intertrigo and has ulcers that open frequently for several years. She was using towels to keep moisture from accumulating under her skin folds but this has been ineffective. She started using InstaDry sheets since discharge from the hospital which has improved the moisture in her folds. She has been using nystatin powder as well. She has been using bacitracin to the ulcer of her abdomen. She has an indwelling suprapubic catheter that is changed monthly. She has heavy drainage from her ulcers. She is wheelchair bound and has an aid that helps her daily for a few hours per day. She denies fever or chills. In May 2019, she reports that she has a chronic ulcer of her coccyx area that was previously surgically debrided that comes and goes and has gotten worse since she was in the halfway in early 2018. Progress of Wound: Samra is here for follow up of ulcers of her left groin. She is tolerating Fibracol dressings to left groin and continues to use Interdry strips to her groin area to wick away moisture. She has had improvement in erythema. She has moderate to heavy drainage from the ulcers of her left groin. She is tolerating fibracol to her coccyx ulcer and has moderate to heavy drainage from this ulcer. Her mid-abdomen ulcer remains healed. She denies fever or chills or erythema or increased drainage from previous. - Physical Exam Vital Signs Temp Pulse Resp BP 97 F L 79 18 119/60 07/26/19 16:35 07/26/19 16:35 07/26/19 16:35 07/26/19 16:35 General: Alert, Oriented x3, Cooperative, No apparent distress HEENT: Atraumatic, Normocephalic Oral: Moist Mucosa Abdomen: Soft, Non Tender, Obese Extremities: Edema Skin: Ulcer/ Wound Wound Measurements and Assessment WC - Nurse 1 - General Ulcer Measurement Start: 07/26/19 16:35 Freq: Status: Active Protocol: Activity Type Activity Date Activity User E-Sign Co-Sign Detail Recorded Client Recorded Date Recorded By Document 07/26/19 16:35 RB [id number] 07/26/19 16:38 RB 07/26/19 16:35 Wound Center Nurse 1 [Ulcer Assessment] #3 Coccyx -Combined with other wound No -Current Size (cm) - Length 1.2 -Current Size (cm) - Width 1.2 -Current Size (cm) - Depth 0.3 -Total Square Cm 1.44 -Tunneling No -Undermining/Tunneling No -Circular Undermining No -Exudate Amt Medium -Exudate Type Serosanguineous -Wound Margin Thickened & Rolled Under -Granulation Amt Large (67-100%) -Granulation Quality [place] -Slough/Fibrin Yes -Necrosis Amt Small (1-33%) -Necrotic Tissue Type Adherent Slough -Structure Exposed N/A -Texture (Jessica-wound Skin Appearance) Assessed, Scarring -Moisture (Jessica-wound Skin Appearance Assessed ) -Color (Jessica-wound Skin Appearance) Assessed -Temperature (Jessica-wound Skin No Abnormality Appearance) (Pt Warm) -Tenderness on Palpation (Jessica-wound No Skin Appearance) -Ulcer Cleansing Wound Cleanser -Foul Odor after Cleansing No -Anesthetic Used 5% Lidocaine Gel #1 left abd fold cluster -Combined with other wound No -Current Size (cm) - Length 1.5 -Current Size (cm) - Width 0.3 -Current Size (cm) - Depth 0.1 -Total Square Cm 0.45 -Tunneling No -Undermining/Tunneling No -Circular Undermining No -Exudate Amt Medium -Exudate Type Serosanguineous -Wound Margin Flat & Intact -Granulation Amt Medium (34-66%) -Granulation Quality [place] -Slough/Fibrin Yes -Necrosis Amt Small (1-33%) -Necrotic Tissue Type Adherent Slough -Structure Exposed N/A -Texture (Jessica-wound Skin Appearance) Assessed, Excoriation, Friable -Moisture (Jessica-wound Skin Appearance Assessed ) -Color (Jessica-wound Skin Appearance) Assessed -Temperature (Jessica-wound Skin No Abnormality Appearance) (Pt Warm) -Ulcer Cleansing Wound Cleanser -Foul Odor after Cleansing No -Anesthetic Used 5% Lidocaine Gel WC - Nurse 2 - General Ulcer CM Notes Start: 07/26/19 16:35 Freq: Status: Active Protocol: Activity Type Activity Date Activity User E-Sign Co-Sign Detail Recorded Client Recorded Date Recorded By Document 07/26/19 17:54 MW [id number] 07/26/19 18:13 MW 07/26/19 17:54 Wound Center Nurse 2 [Procedure/Treatment] #3 Coccyx -Time 17:54 -Correct Patient Yes -Correct Side, Site, Position Yes -Correct Procedure Yes -Procedure Performed Yes -Type of Procedure Debridement -Clinical Debridement Subcutaneous -Post Debridement Size (cm) - Length 1.5 -Post Debridement Size (cm) - Width 1.7 -Post Debridement Size (cm) - Depth 0.3 -Total Square Cm 2.55 -Wound/Ulcer Outcome Not Healed -Ulcer Cleansing Rinsed/ Irrigated with Saline -Foul Odor after Cleansing No -Bioengineered Tissue No -Bleeding Controlled with Pressure -Offloading No -Treatment Response Procedure Tolerated Well #1 left abd fold cluster -Time 17:54 -Correct Patient Yes -Correct Side, Site, Position Yes -Correct Procedure Yes -Procedure Performed No -Post Debridement Size (cm) - Length 11.5 -Post Debridement Size (cm) - Width 8.0 -Post Debridement Size (cm) - Depth 0.1 -Total Square Cm 92.00 -Wound/Ulcer Outcome Not Healed -Ulcer Cleansing Rinsed/ Irrigated with Saline -Foul Odor after Cleansing No -Bioengineered Tissue No -Bleeding Controlled with Pressure -Offloading No -Treatment Response Procedure Tolerated Well [See Physician Procedure note for Specifics] Pain Scale: 0-10 Numeric [Pain] -Is Patient Pain Free? Yes Psych/Mental Status: Normal Affect, Appropriate Debridement Note Post-Debridement Measurements/Treatment - Nurse 2 - General Ulcer CM Notes Start: 07/26/19 16:35 Freq: Status: Active Protocol: Activity Type Activity Date Activity User E-Sign Co-Sign Detail Recorded Client Recorded Date Recorded By Document 07/26/19 17:54 MW [id number] 07/26/19 18:13 MW 07/26/19 17:54 Wound Center Nurse 2 #3 Coccyx -Time 17:54 -Correct Patient Yes -Correct Side, Site, Position Yes -Correct Procedure Yes -Procedure Performed Yes -Type of Procedure Debridement -Clinical Debridement Subcutaneous -Post Debridement Size (cm) - Length 1.5 -Post Debridement Size (cm) - Width 1.7 -Post Debridement Size (cm) - Depth 0.3 -Total Square Cm 2.55 -Wound/Ulcer Outcome Not Healed -Ulcer Cleansing Rinsed/ Irrigated with Saline -Foul Odor after Cleansing No -Bioengineered Tissue No -Bleeding Controlled with Pressure -Offloading No -Treatment Response Procedure Tolerated Well #1 left abd fold cluster -Time 17:54 -Correct Patient Yes -Correct Side, Site, Position Yes -Correct Procedure Yes -Procedure Performed No -Post Debridement Size (cm) - Length 11.5 -Post Debridement Size (cm) - Width 8.0 -Post Debridement Size (cm) - Depth 0.1 -Total Square Cm 92.00 -Wound/Ulcer Outcome Not Healed -Ulcer Cleansing Rinsed/ Irrigated with Saline -Foul Odor after Cleansing No -Bioengineered Tissue No -Bleeding Controlled with Pressure -Offloading No -Treatment Response Procedure Tolerated Well Pain Scale: 0-10 Numeric Is Patient Pain Free? Yes Wound debrided: left abdominal fold cluster Laterality: Left Anesthesia Used: 4% Lidocaine Solution, 5% Lidocaine Gel No debridement was completed today - due to no slough being present - Additional Wound Wound debrided: coccyx Laterality: Not Applicable Wound Grade/Stage: Stage III Type of Debridement: Excisional debridement Anesthesia Used: 4% Lidocaine Solution, 5% Lidocaine Gel Depth: Down to and including healthy tissue, in the subcutaneous layer Percentage of wound debrided: 100 Instrument Used: 7mm curette Tissue Removed: yellow slough, devitalized tissue Severity: Fat Layer Exposed Amount of bleeding with debridement: Mild Bleeding Controlled with: Compression and gauze Patient tolerated procedure: Patient tolerated procedure well Assessment/Plan Assessment: ulcers of left groin. morbid obesity. Candidal intertrigo Plan: Pat's ulcers were evaluated today. Her left groin cluster is improved. Will have her continue to use Fibracol to the ulcers of her left lower abdomen and coccyx and interdry sache to her abdominal fold area to absorb moisture and prevent ulcers from developing due to the heavy drainage. Diflucan will be continued once weekly to treat candidal intertrigo. Will have her take this weekly to every other week due to sweating and heat and her body habitus and chronic yeast which are causing her to develop ulcers. Encouraged her to increase protein intake and offload the areas of her ulcers. Advised to call with any fever, chills, increased drainage. F/u in 2 weeks.
[2019-08-09 15:08] VITALS: BP 104/48; PULSE 77; RESP 18; TEMP 36.4; BMI 49.3
--- NOTE | 2019-08-09 16:15 | PCM.WC.PN ---
(1) Ulcer of left groin with fat layer exposed Status: Chronic Current Visit: Yes Code(s): L98.492 - Non-pressure chronic ulcer of skin of other sites with fat layer exposed (2) Pressure ulcer of coccygeal region, stage 3 Status: Chronic Current Visit: Yes Code(s): L89.153 - Pressure ulcer of sacral region, stage 3 (3) Morbid obesity Status: Chronic Current Visit: Yes Code(s): E66.01 - Morbid (severe) obesity due to excess calories (4) Candidal intertrigo Status: Chronic Current Visit: Yes Code(s): B37.2 - Candidiasis of skin and nail Type of Wound Date of Service: 08/09/19 Chief Complaint: ulcers of left groin and abdomen, pressure ulcer of coccyx History of Wound: Samra is a 73 yo woman who presents to the wound center for ulcers of left groin and abdomen referred by wound nurse at [facility]. She was recently hospitalized at [facility] for urosepsis. She was on IV antibiotics of Meropenem and Vancomycin. She is morbidly obese and has problems with candidal intertrigo and has ulcers that open frequently for several years. She was using towels to keep moisture from accumulating under her skin folds but this has been ineffective. She started using InstaDry sheets since discharge from the hospital which has improved the moisture in her folds. She has been using nystatin powder as well. She has been using bacitracin to the ulcer of her abdomen. She has an indwelling suprapubic catheter that is changed monthly. She has heavy drainage from her ulcers. She is wheelchair bound and has an aid that helps her daily for a few hours per day. She denies fever or chills. In May 2019, she reports that she has a chronic ulcer of her coccyx area that was previously surgically debrided that comes and goes and has gotten worse since she was in the senior care in early 2018. Progress of Wound: Samra is here for follow up of ulcers of her left groin. She is tolerating Fibracol dressings to left groin and continues to use Interdry strips to her groin area to wick away moisture. She has had improvement in erythema. She has moderate to heavy drainage from the ulcers of her left groin. She is tolerating fibracol to her coccyx ulcer and has moderate to heavy drainage from this ulcer. Her mid-abdomen ulcer remains healed. She denies fever or chills or erythema or increased drainage from previous. - Physical Exam Vital Signs Temp Pulse Resp BP 97.5 F L 77 18 104/48 L 08/09/19 15:08 08/09/19 15:08 08/09/19 15:08 08/09/19 15:08 General: Alert, Oriented x3, Cooperative, No apparent distress HEENT: Atraumatic, Normocephalic Oral: Moist Mucosa Abdomen: Obese Extremities: Edema Skin: Ulcer/ Wound Wound Measurements and Assessment WC - Nurse 1 - General Ulcer Measurement Start: 07/26/19 16:35 Freq: Status: Active Protocol: Activity Type Activity Date Activity User E-Sign Co-Sign Detail Recorded Client Recorded Date Recorded By Document 08/09/19 15:08 RB [id number] 08/09/19 15:11 RB 08/09/19 15:08 Wound Center Nurse 1 [Ulcer Assessment] #3 Coccyx -Combined with other wound No -Current Size (cm) - Length 1 -Current Size (cm) - Width 1.4 -Current Size (cm) - Depth 0.2 -Total Square Cm 1.4 -Tunneling No -Undermining/Tunneling No -Circular Undermining No -Exudate Amt Small -Exudate Type Serosanguineous -Wound Margin Fibrotic Scar, Thickened Scar -Granulation Amt Medium (34-66%) -Granulation Quality [place] -Slough/Fibrin Yes -Necrosis Amt Small (1-33%) -Necrotic Tissue Type Adherent Slough -Structure Exposed N/A -Texture (Jessica-wound Skin Appearance) Scarring -Moisture (Jessica-wound Skin Appearance Maceration ) -Color (Jessica-wound Skin Appearance) Assessed -Temperature (Jessica-wound Skin No Abnormality Appearance) (Pt Warm) -Tenderness on Palpation (Jessica-wound No Skin Appearance) -Ulcer Cleansing Wound Cleanser -Foul Odor after Cleansing No -Anesthetic Used 5% Lidocaine Gel #1 left abd fold cluster -Combined with other wound No -Current Size (cm) - Length 7 -Current Size (cm) - Width 4 -Current Size (cm) - Depth 0.1 -Total Square Cm 28 -Tunneling No -Undermining/Tunneling No -Circular Undermining No -Exudate Amt Medium -Exudate Type Serosanguineous -Wound Margin Flat & Intact -Granulation Amt Medium (34-66%) -Granulation Quality [place],Red -Slough/Fibrin Yes -Necrosis Amt Small (1-33%) -Necrotic Tissue Type Adherent Slough -Structure Exposed N/A -Texture (Jessica-wound Skin Appearance) Excoriation -Moisture (Jessica-wound Skin Appearance Maceration ) -Color (Jessica-wound Skin Appearance) Assessed -Temperature (Jessica-wound Skin No Abnormality Appearance) (Pt Warm) -Tenderness on Palpation (Jessica-wound No Skin Appearance) -Ulcer Cleansing Wound Cleanser -Foul Odor after Cleansing No -Anesthetic Used 4% Lidocaine Solution WC - Nurse 2 - General Ulcer CM Notes Start: 07/26/19 16:35 Freq: Status: Active Protocol: Activity Type Activity Date Activity User E-Sign Co-Sign Detail Recorded Client Recorded Date Recorded By Document 08/09/19 15:38 [id number] 08/09/19 15:42 08/09/19 15:38 Wound Center Nurse 2 [Procedure/Treatment] #3 Coccyx -Time 15:38 -Correct Patient Yes -Correct Side, Site, Position Yes -Correct Procedure Yes -Procedure Performed Yes -Type of Procedure Debridement -Clinical Debridement Subcutaneous -Post Debridement Size (cm) - Length 1.8 -Post Debridement Size (cm) - Width 0.5 -Post Debridement Size (cm) - Depth 0.3 -Total Square Cm 0.90 -Wound/Ulcer Outcome Not Healed -Ulcer Cleansing Rinsed/ Irrigated with Saline -Foul Odor after Cleansing No -Bleeding Controlled with Pressure -Offloading No #1 left abd fold cluster -Post Debridement Size (cm) - Length 6.2 -Post Debridement Size (cm) - Width 3.0 -Post Debridement Size (cm) - Depth 0.1 -Total Square Cm 18.60 -Wound/Ulcer Outcome Not Healed -Ulcer Cleansing Rinsed/ Irrigated with Saline -Foul Odor after Cleansing No -Bioengineered Tissue No -Bleeding Controlled with NA -Offloading No [See Physician Procedure note for Specifics] Pain Scale: 0-10 Numeric [Pain] -Is Patient Pain Free? No Psych/Mental Status: Normal Affect, Appropriate Debridement Note Post-Debridement Measurements/Treatment WC - Nurse 2 - General Ulcer CM Notes Start: 07/26/19 16:35 Freq: Status: Active Protocol: Activity Type Activity Date Activity User E-Sign Co-Sign Detail Recorded Client Recorded Date Recorded By Document 07/26/19 17:54 MW [id number] 07/26/19 18:13 MW Document 08/09/19 15:38 [id number] 08/09/19 15:42 07/26/19 08/09/19 17:54 15:38 Wound Center Nurse 2 #3 Coccyx -Time 17:54 15:38 -Correct Patient Yes Yes -Correct Side, Site, Position Yes Yes -Correct Procedure Yes Yes -Procedure Performed Yes Yes -Type of Procedure Debridement Debridement -Clinical Debridement Subcutaneous Subcutaneous -Post Debridement Size (cm) - Length 1.5 1.8 -Post Debridement Size (cm) - Width 1.7 0.5 -Post Debridement Size (cm) - Depth 0.3 0.3 -Total Square Cm 2.55 0.90 -Wound/Ulcer Outcome Not Healed Not Healed -Ulcer Cleansing Rinsed/ Rinsed/ Irrigated with Irrigated with Saline Saline -Foul Odor after Cleansing No No -Bioengineered Tissue No -Bleeding Controlled with Pressure Pressure -Offloading No No -Treatment Response Procedure Tolerated Well #1 left abd fold cluster -Time 17:54 -Correct Patient Yes -Correct Side, Site, Position Yes -Correct Procedure Yes -Procedure Performed No -Post Debridement Size (cm) - Length 11.5 6.2 -Post Debridement Size (cm) - Width 8.0 3.0 -Post Debridement Size (cm) - Depth 0.1 0.1 -Total Square Cm 92.00 18.60 -Wound/Ulcer Outcome Not Healed Not Healed -Ulcer Cleansing Rinsed/ Rinsed/ Irrigated with Irrigated with Saline Saline -Foul Odor after Cleansing No No -Bioengineered Tissue No No -Bleeding Controlled with Pressure NA -Offloading No No -Treatment Response Procedure Tolerated Well Pain Scale: 0-10 Numeric Is Patient Pain Free? Yes No Wound debrided: left abdominal fold cluster Laterality: Left Type of Debridement: Excisional debridement Anesthesia Used: 4% Lidocaine Solution Depth: Down to and including healthy tissue, in the subcutaneous layer Percentage of wound debrided: 100 Instrument Used: - - gauze Tissue Removed: yellow slough, devitalized tissue Severity: Fat Layer Exposed Amount of bleeding with debridement: Mild Bleeding Controlled with: Compression and gauze Patient tolerated procedure well - Additional Wound Wound debrided: coccyx Laterality: Not Applicable Wound Grade/Stage: Stage 3 Type of Debridement: Excisional debridement Anesthesia Used: 4% Lidocaine Solution Depth: Down to and including healthy tissue, in the subcutaneous layer Percentage of wound debrided: 100 Instrument Used: 7mm curette Tissue Removed: yellow slough, devitalized tissue Severity: Fat Layer Exposed Amount of bleeding with debridement: Mild Bleeding Controlled with: Compression and gauze Patient tolerated procedure: Patient tolerated procedure well Assessment/Plan Active Problems (Last Reviewed 03/26/19 @ 14:49 by Rebecca Zavala MD) Ulcer of left groin with fat layer exposed (Chronic) Pressure ulcer of coccygeal region, stage 3 (Chronic) Morbid obesity (Chronic) Candidal intertrigo (Chronic) Assessment: ulcers of left groin. morbid obesity. Candidal intertrigo Plan: Samra's ulcers were evaluated today. Her left groin cluster is improved. Will have her continue to use Fibracol to the ulcers of her left lower abdomen and coccyx and interdry sache to her abdominal fold area to absorb moisture and prevent ulcers from developing due to the heavy drainage. Diflucan will be continued once weekly to treat candidal intertrigo. Will have her take this weekly to every other week due to sweating and heat and her body habitus and chronic yeast which are causing her to develop ulcers. Encouraged her to increase protein intake and offload the areas of her ulcers. Advised to call with any fever, chills, increased drainage. F/u in 2 weeks.
== END 2019-08-12 23:59 ==
LOC: WC 15:00
PROVIDERS: Family Provider Internal Medicine; PCP Internal Medicine; Visit Provider Family Medicine
DX: L89.153 Pressure ulcer of sacral region, stage 3 (principal); E66.01 Morbid (severe) obesity due to excess calories; Z71.3 Dietary counseling and surveillance; B37.2 Candidiasis of skin and nail; L98.492 Non-pressure chronic ulcer of skin of other sites with fat layer exposed
CPT/HCPCS: 11042

== ENCOUNTER 2019-08-17 18:51 | Inpatient (IN) | payer MEDICARE, OTHER, SELFPAY ==
[2019-08-17 18:52] VITALS: BP 114/57; PULSE 101; RESP 17; TEMP 38.3; O2SAT 96; BMI 48.3
--- NOTE | 2019-08-17 19:41 | EKG12_ITS ---
Test Reason : GEN ILLNESS Blood Pressure : / mmHG Vent. Rate : 104 BPM Atrial Rate : 104 BPM P-R Int : 138 ms QRS Dur : 080 ms QT Int : 346 ms P-R-T Axes : 000 066 030 degrees QTc Int : 454 ms Sinus tachycardia Low voltage QRS Inferior infarct , age undetermined Cannot rule out Anterior infarct , age undetermined Abnormal ECG Confirmed by WINDY THOMPSON, ROLAND ([id number]), acquisition editor BROOKS WIGGINS ([id number]) on 08/28/2019 9:17:05 A M Referred By: MADELAINE Confirmed By:RICK TMEPLE MD
--- NOTE | 2019-08-17 19:47 | RAD_ITS ---
STUDY: X-RAY CHEST REASON FOR EXAM: Female, 73 years old. [place] TECHNIQUE: Frontal view of the chest COMPARISON: 07/02/2019 FINDINGS: The lungs are clear. There are no pleural effusions. There is no pneumothorax. The heart is normal in size. The visualized osseous structures are within normal limits. RAD/Chest 1 View (Portable) IMPRESSION: No acute thoracic pathology. Electronically Signed: Inocente Rae, at 20:19 EDT Tel , Service support ,
--- NOTE | 2019-08-17 20:03 | ED.DCSUM_ITS ---
History of Present Illness Chief Complaint: General Illness Informant: Patient, Family Onset: Days Context: Gradual Onset Narrative: Patient is a 73-year-old female with extensive past medical history including urosepsis, morbid obesity, DM 2, anxiety, hypertension, hyperlipidemia, VITA, candidal intertrigo, arrhythmia and prior chronic suprapubic urinary catheter presenting with increased malaise and an episode of chills. Patient states she has been feeling unwell since Monday, 5 days ago. She states is been nonspecific and she has been more tired than normal. She notes that she has had increased redness in her lower roland wall. Patient states she is in wound care for her abdominal wall which appears to be chronically infected with fungus. Today patient had an episode of chills. She states that once this happened she often has a fever and then get septic. Because of that she came to the emergency room. She denies any other complaints at this time. She is not currently on any antibiotics. Her Henry bag was recently changed 1 week ago. She has not noticed any urine abnormalities. She states she has a mild cough with sputum production. She attributes this to the recent weather change. Prior similar symptoms: Yes - sepsis Past Medical History - Allergies and Home Meds Allergies/Adverse Reactions: Allergies adhesive tape Allergy (Verified 08/17/19 18:52) blisters Influenza Virus Vaccines Allergy (Verified 08/17/19 18:52) shortness of breath/severe wheezing iron Allergy (Verified 08/17/19 18:52) from IV form chest pressure and heart palpitations Sulfa (Sulfonamide Antibiotics) Allergy (Verified 08/17/19 18:52) Shortness of breath bactrim does not work for her-per pcp paperwork meloxicam [From [facility]] Adverse Reaction (Verified 08/17/19 18:52) gi upset seasonal allergies Allergy (Uncoded 07/02/19 12:27) Other Past Medical History: - - Diabetes mellitus, hypertension, VITA, depression, hyperlipidemia Surgical History: cholecystectomy, hysterectomy, - - Suprapubic catheter placement. Smoking Status: Never smoker - Family History Maternal Family History: Reports: Diabetes, Heart Disease - Her father had a CABG and CHF Paternal Family History: Reports: Heart Disease Review of Systems All systems negative except as indicated General: Reports: Chills, Malaise Respiratory: Reports: Cough Genitourinary: Reports: - - Suprapubic catheter Skin: Reports: Rash - Pannus Physical Exam Vital Signs/Narrative: Vital Signs Temp Pulse Resp BP Pulse Ox 08/17/19 18:52 101.0 F H 101 H 17 114/57 L 96 Inital Vital Signs reviewed: Yes General: Well nourished, Well developed, Obese, No Acute Distress Head: Normocephalic, Atraumatic Eyes: Perrl, EOMI, - - Right, medial aspect subconjunctival hemorrhage ENT: No rhinorrhea, Dry mucous membranes Neck: Supple, Nontender Cardiovascular: Regular rhythm, No murmurs, Tachycardia Respiratory: No distress, CTA bilaterally, Chest nontender Abdomen: Soft, Nontender, Nondistended, Normal bowel sounds : - - Suprapubic urinary catheter in place Extremities: Nontender, No edema Skin: - - Prominent abdominal pannus with erythema inside the fold diffusely however on the left there is also approximately 10 cm area of erythema, warmth and induration that is tender to the touch Neurological: Alert, Oriented x3, Cranial nerves II-XII grossly intact, Normal Strength, Normal Sensation Psychological: Normal affect, Normal Mood Diagnostic/Tx/Re-eval Chest X-Ray - ED: 1 View, Read by ED Physician, Read by Radiologist, No Acute Disease Clinical Impression(s) from Imaging Studies Chest X-Ray 08/17/19 19:47 IMPRESSION: No acute thoracic pathology. Electronically Signed: Inocente Butch, at 20:19 EDT Tel , Service support , Laboratory Data 08/17/19 08/17/19 08/17/19 19:20 19:20 20:10 WBC Cancelled Corrected WBC Cancelled RBC Cancelled Hgb Cancelled Hct Cancelled MCV Cancelled MCH Cancelled MCHC Cancelled RDW Std Deviation Cancelled RDW Coeff of Jessi Cancelled Plt Count Cancelled MPV Cancelled Immature Gran % (Auto) Cancelled Neut % (Auto) Cancelled Lymph % (Auto) Cancelled [place] % (Auto) Cancelled Eos % (Auto) Cancelled Baso % (Auto) Cancelled Absolute Neuts (auto) Cancelled Absolute Lymphs (auto) Cancelled Total Counted Cancelled Neutrophils % (Manual) Cancelled Band Neutrophils % Cancelled Lymphocytes % (Manual) Cancelled Monocytes % (Manual) Cancelled Eosinophils % (Manual) Cancelled Basophils % (Manual) Cancelled Metamyelocytes % Cancelled Myelocytes % Cancelled Promyelocytes % Cancelled Blast Cells % Cancelled Plasma Cell % (Manual) Cancelled Other Cells % Cancelled Nucleated RBC % Cancelled Nucleated RBCs/100 WBC Cancelled Differential Comment Cancelled Diff Path Review Cancelled Hypersegmented Neuts Cancelled Atypical Lymphocytes Cancelled Reactive Lymphocytes Cancelled Smudge Cells Cancelled Toxic Granulation Cancelled Toxic Vacuolation Cancelled Dohle Bodies Cancelled [place] Rods Cancelled Platelet Estimate Cancelled Plt Morphology Comment Cancelled RBC Morphology Cancelled Polychromasia Cancelled Hypochromasia Cancelled Poikilocytosis Cancelled Basophilic Stippling Cancelled Anisocytosis Cancelled Microcytosis Cancelled Macrocytosis Cancelled Spherocytes Cancelled Sickle Cells Cancelled Target Cells Cancelled Tear Drop Cells Cancelled Ovalocytes Cancelled Stomatocytes Cancelled [place] Bodies Cancelled [place] Cells Cancelled Bite Cells Cancelled Crenated Cell Cancelled Acanthocytes (Spur) Cancelled Rouleaux Cancelled Schistocytes Cancelled PT 14.9 INR 1.2 APTT 32.5 Sodium 129 L Potassium 4.3 Chloride 100 Carbon Dioxide 21.0 Anion Gap 8 BUN 23 H Creatinine 1.30 H Estim Creat Clear Calc 38.04 Est GFR (MDRD) Af Amer 52 L Est GFR (MDRD) Non-Af 43 L BUN/Creatinine Ratio 17.7 Glucose 111 H Lactic Acid Calcium 9.6 Total Bilirubin 0.40 AST 12 L ALT 13 Alkaline Phosphatase 72 Total Protein 10.1 H Albumin 3.4 Globulin 6.7 H Albumin/Globulin Ratio 0.5 L Urine Color Urine Clarity Urine pH Ur Specific [place] Urine Protein Urine Glucose (UA) Urine Ketones Urine Occult Blood Urine Nitrite Urine Bilirubin Urine Urobilinogen Ur Leukocyte Esterase Urine RBC Urine WBC Ur Squamous Epith Cells Amorphous Sediment Urine Bacteria Urine Mucus 08/17/19 08/17/19 08/17/19 20:10 20:30 21:02 WBC 15.6 H Corrected WBC RBC 3.57 L Hgb 9.8 L Hct 31.3 L MCV 87.7 MCH 27.5 MCHC 31.3 L RDW Std Deviation 53.4 H RDW Coeff of Jessi 17.0 H Plt Count 321 MPV 9.9 Immature Gran % (Auto) 0.400 Neut % (Auto) 89.4 H Lymph % (Auto) 4.8 L [place] % (Auto) 4.1 Eos % (Auto) 1.0 Baso % (Auto) 0.3 Absolute Neuts (auto) 14.0 H Absolute Lymphs (auto) 0.75 L Total Counted Neutrophils % (Manual) Band Neutrophils % Lymphocytes % (Manual) Monocytes % (Manual) Eosinophils % (Manual) Basophils % (Manual) Metamyelocytes % Myelocytes % Promyelocytes % Blast Cells % Plasma Cell % (Manual) Other Cells % Nucleated RBC % 0 Nucleated RBCs/100 WBC Differential Comment Diff Path Review Hypersegmented Neuts Atypical Lymphocytes Reactive Lymphocytes Smudge Cells Toxic Granulation Toxic Vacuolation Dohle Bodies Martí[place] Rods Platelet Estimate Plt Morphology Comment RBC Morphology Polychromasia Hypochromasia Poikilocytosis Basophilic Stippling Anisocytosis Microcytosis Macrocytosis Spherocytes Sickle Cells Target Cells Tear Drop Cells Ovalocytes Stomatocytes [place] Bodies Catia Cells Bite Cells Crenated Cell Acanthocytes (Spur) Rouleaux Schistocytes PT INR APTT Sodium Potassium Chloride Carbon Dioxide Anion Gap BUN Creatinine Estim Creat Clear Calc Est GFR (MDRD) Af Amer Est GFR (MDRD) Non-Af BUN/Creatinine Ratio Glucose Lactic Acid 3.1 H Calcium Total Bilirubin AST ALT Alkaline Phosphatase Total Protein Albumin Globulin Albumin/Globulin Ratio Urine Color Yellow Urine Clarity Cloudy Urine pH 6.0 Ur Specific [place] 1.015 Urine Protein 30 H Urine Glucose (UA) Normal Urine Ketones Negative Urine Occult Blood 250 H Urine Nitrite Positive H Urine Bilirubin Negative Urine Urobilinogen Normal Ur Leukocyte Esterase 500 H Urine RBC 25-50 SEEN Urine WBC >100 SEEN Ur Squamous Epith Cells 0-5 SEEN Amorphous Sediment 1+ URATE Urine Bacteria 1+ Urine Mucus 0 SEEN - Rhythm Strip Rhythm Strip: Sinus Tach Rate: 101 Ectopy: None - EKG Initial EKG Interpretation: Sinus Tachycardia, - - Sinus tachycardia Normal intervals Normal axis Normal ST segments Low voltage QRS - Medical Decision Making Patient is evaluated for an episode of chills at home. She states is consistent with her prior episodes of sepsis. Patient does meet criteria for sepsis as she has tachycardia and leukocytosis as well as 2 possible sources of infection, cellulitis as well as catheter associated urinary tract infection. Patient's lactate is 3.1. She meets criteria for severe sepsis but not septic shock. Patient does have an elevated creatinine however I suspect this is her baseline. Patient is given a liter of fluid in the emergency room. She does spike a fever and is given Tylenol as well as Zofran for associated nausea. Patient is started empirically on broad-spectrum antibiotics, vancomycin and Zosyn. She will be admitted to [facility] for further treatment and evaluation. She is agreeable with this plan. She is stable for the general medical floor at time of disposition. ED Disposition - Plan for ED Patient: Disposition: Acute Care [facility] Diagnosis: Severe sepsis, Cellulitis of left abdominal wall, UTI (urinary tract infection) due to urinary indwelling catheter
[2019-08-17 20:08] LABS: ALB/GLOB Ratio 0.5 RATIO (0.9-2.4); AST(SGOT) 12 U/L (15-37); Alanine Aminotransfer ALT/SGPT 13 U/L (13-56); Albumin, Serum 3.4 g/dL (3.2-5.0); Alkaline Phosphatase 72 U/L (45-117); Anion Gap 8 (5-15); BUN 23 mg/dL (7-18); BUN/Creat Ratio 17.7 RATIO (10-20); Calcium,Total 9.6 mg/dL (8.5-10.1); Chloride 100 mmol/L (98-107); EST Glomerular Filtration Rate 43 mL/min (>60); Est Glom Filt Rate - Afr Amer 52 mL/min (>60); Estimated Creatinine Clearance 38.04 ml/min; Globulin 6.7 g/dL (2.2-4.2); Glucose 111 mg/dL (74-106); Potassium 4.3 mmol/L (3.5-5.1); Protein, Total 10.1 g/dL (6.4-8.2); Sodium Level 129 mmol/L (136-145)
[2019-08-17 20:15] VITALS: BP 136/63; PULSE 109; RESP 11; RESP 12; TEMP 38.3; O2SAT 97
[2019-08-17 20:34] LABS: International Normalized Ratio 1.2; Prothrombin Time (Protime)PT. 14.9 SECONDS (11.7-14.9)
[2019-08-17 20:35] LABS: Partial Thromboplast Time 32.5 Seconds (24.1-36.2)
[2019-08-17] MEDS: Acetaminophen 500 MG Tablet 1000 MG PO (20:41)
[2019-08-17] MEDS: Ondansetron 4 MG/2 ML Vial IV (20:41)
[2019-08-17 20:42] VITALS: TEMP 39
[2019-08-17 20:49] LABS: Lactic Acid 3.1 mmol/L (0.4-2.0)
--- NOTE | 2019-08-17 20:50 | ED.RN ---
CRITICAL LAB VALUE RECEIVED FROM LAB. LACTIC ACID 3.1. DR. BURKETT NOTIFIED.
[2019-08-17 20:58] LABS: Absolute Lymphocyte Count 0.75 X10^3/uL (0.83-4.51); Basophil# 0.04 X10^3/uL; Basophil% 0.3 % (0-1); Eosinophil# 0.15 X10^3/uL; Hematocrit 31.3 % (37-47); Hemoglobin 9.8 g/dL (12.0-15.0); Lymphocyte # 0.75 X10^3/ul (4.0); Lymphocyte % 4.8 % (19-41); Mean Corp Hgb Conc 31.3 g/dL (32-36); Mean Corpuscular Hgb 27.5 pg (27.0-32.0); Mean Corpuscular Volume 87.7 fL (81-99); Mean Platelet Vol. 9.9 fl (6.2-12.0); Monocyte# 0.64 X10^3/uL; Monocyte% 4.1 % (0-10); NRBC Flagged by Analyzer 0 % (0-5); Neutrophil # 13.99 X10^3/uL (2.7-7.7); Neutrophil % 89.4 % (47-70); Platelet Count 321 K/mm3 (150-450); RBC Distribution Width SD 53.4 fl (35.1-43.9); Red Blood Count 3.57 M/mm3 (4.2-5.4); White Blood Count 15.6 K/mm3 (4.4-11.0)
[2019-08-17 21:13] LABS: Mucous, Urine 0 SEEN /hpf (<or=2+)
[2019-08-17 21:17] LABS: Color, Urine Yellow (Yellow); Glucose, Dipstick Normal (Normal); Ketone-Dipstick Negative (Negative); Leukocyte Esterase-Dipstick 500 /ul (Negative); Nitrite-Dipstick Positive (Negative); Occult Blood-Urine 250 /ul (Negative); Protein-Dipstick 30 mg/dl (Negative); Specific Gravity, Urine 1.015 (1.002-1.030); Urine Bilirubin Dipstick Negative (Negative); Urine Clarity Cloudy (Clear); Urine Urobilinogen Normal (Normal)
[2019-08-17 21:25] LABS: Amorphous Sediment 1+ URATE; Bacteria 1+ /hpf (None Seen); Red Blood Cells-Urine 25-50 SEEN /hpf (0-5); Squamous Epithelial Cells - UA 0-5 SEEN /hpf (5-10); White Blood Cells >100 SEEN /hpf (0-5)
--- NOTE | 2019-08-17 21:30 | HP.PCM_ITS ---
Problem List (1) Morbid obesity Status: Chronic (2) Severe sepsis Status: Acute (3) Anxiety and depression Status: Chronic (4) HTN (hypertension) Status: Chronic Qualifiers: Hypertension type: essential hypertension Qualified Code(s): I10 - Essential (primary) hypertension (5) Cellulitis of left abdominal wall Status: Chronic History of Present Illness Date of Admission: 08/17/19 Chief Complaint: chills and fever The patient is a 73 year old F with a significant history of hypertension; diabetes mellitus; chronic indwelling suprapubic catheter and urosepsis who presented to emergency department with chills and fever that started the same day of presentation. Her temperature was 101.8F at home. Her Henry catheter was changed before presentation. ED Course: At the emergency department patient was found to have tachycardia; fever with highest temperature of 102.7;leukocytosis and severely elevated lactic acid. Her urinalysis was abnormal and patient was empirically started on vancomycin and Zosyn. Past Medical History Past Medical History (Chronic Problems): Chronic Problems (Last Reviewed 08/18/19 @ 02:04 by Kyree Dutta MD) Ulcer of abdomen wall with fat layer exposed (Chronic) Ulcer of left groin with fat layer exposed (Chronic) Pressure ulcer of coccygeal region, stage 3 (Chronic) Morbid obesity (Chronic) Anxiety and depression (Chronic) HTN (hypertension) (Chronic) HLD (hyperlipidemia) (Chronic) Cellulitis of left abdominal wall (Chronic) Debility (Chronic) Depression (Chronic) VITA (obstructive sleep apnea) (Chronic) Candidal intertrigo (Chronic) Medical History: Medical History (Last Reviewed 08/18/19 @ 08:00 by Kyree Dutta MD) DM2 (diabetes mellitus, type 2) E11.9 Debility R53.81 VITA (obstructive sleep apnea) G47.33 HTN (hypertension) I10 Allergies adhesive tape Allergy (Verified 08/17/19 18:52) blisters Influenza Virus Vaccines Allergy (Verified 08/17/19 18:52) shortness of breath/severe wheezing iron Allergy (Verified 08/17/19 18:52) from IV form chest pressure and heart palpitations Sulfa (Sulfonamide Antibiotics) Allergy (Verified 08/17/19 18:52) Shortness of breath bactrim does not work for her-per pcp paperwork meloxicam [From [facility]] Adverse Reaction (Verified 08/17/19 18:52) gi upset seasonal allergies Allergy (Uncoded 07/02/19 12:27) Other Home Medications: Ambulatory Orders Medication Instructions Recorded Furosemide [Lasix] 20 mg PO BID 09/30/13 Albuterol Inhaler [Ventolin Hfa] 2 puff INHALATION Q4H PRN PRN 10/30/18 Baclofen 10 mg PO TID 10/30/18 Gabapentin [Neurontin] 600 mg PO BID 10/30/18 Lisinopril [Zestril] 10 mg PO DAILY 10/30/18 Multivitamins,Ther W-Minerals 1 tablet PO 4X/DAY 10/30/18 [Multivitamin With Minerals] Nystatin Powder [Mycostatin Powder] 1 applicatio TOPICAL BID PRN PRN 10/30/18 Oxybutynin Chloride [Ditropan Xl] 15 mg PO DAILY 10/30/18 Vitamin E 1,000 iu PO DAILY 10/30/18 levETIRAcetam tablet [Keppra 500 mg PO QHS 10/30/18 tablet] metFORMIN HCl [Glucophage] 500 mg PO BID 10/30/18 Cyanocobalamin (Vitamin B-12) 1,000 mcg PO DAILY 12/17/18 [B-12] Pravastatin [Pravachol] 20 mg PO QHS 12/17/18 Duloxetine HCl 60 mg PO DAILY 03/22/19 Naproxen [Naprosyn] 500 mg PO BID PRN PRN 03/22/19 Ascorbic Acid [Vitamin C] 500 mg PO BID #180 cap 03/25/19 Methenamine Hippurate [Hiprex] 1 gm PO BID 04/05/19 Fluconazole 200 mg PO TU 07/02/19 Fluticasone Propionate 2 spry INHALATION DAILY PRN 07/02/19 Hydrocodone Bitart/Apap 5-325 1 tab PO Q6H PRN PRN 07/02/19 [[place] 5/325] Venlafaxine XR [Effexor Xr] 150 mg PO BID 07/02/19 Diltiazem CD [Cardizem CD] 120 mg PO DAILY 08/18/19 Fluconazole 200 mg PO QWEEK 08/18/19 Pantoprazole Sodium [Protonix] 40 mg PO DAILY 08/18/19 Potassium Chloride [K-Dur] 10 meq PO DAILYCM 08/18/19 Surgical History: cholecystectomy, hysterectomy, - - Suprapubic catheter placement. 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 Denies: Weight Change HEENT: Denies: Head Aches, Sinus Congestion, Sinus Drainage Cardiovascular: Denies: Chest Pain, Palpitations Respiratory: Denies: Cough, Shortness of breath at rest, Sputum production Gastrointestinal: Denies: Abdominal Pain, Nausea, Vomiting Genitourinary: Denies: Dysuria Musculoskeletal: Denies: Joint Pain, Joint Tenderness Skin: Reports: Skin Changes - The redness of the left lower abdominal area and skin changes to the entire abdominal fold attributed to fungal infection. Denies: Rash, Wounds Neurological: Denies: Numbness, Tingling, Focal weakness Psychiatric: Denies: Anxiety, Depression, Homicidal Ideations, Suicidal Ideations Hematologic/ Lymphatic: Denies: Easy Bruising, Easy Bleeding VTE Information - Inpt Only VTE Present on Admission: No VTE Mechan Device Prophylaxis: None VTE Pharm Prophylaxis ordered?: Yes Patient Problems: Active and Suspected Problems (Last Reviewed 08/18/19 @ 02:04 by Kyree Dutta MD) Severe sepsis (Acute) UTI (urinary tract infection) due to urinary indwelling catheter (Acute) Severe sepsis (Acute) - Physical Exam General: Alert, Oriented x3, Cooperative HEENT: Atraumatic, PERRLA, EOMI, Normocephalic Neck: Supple, No JVD, Negative Carotid Bruits Lungs: Clear to auscultation, Normal air movement Cardiovascular: No murmurs, Tachycardic Abdomen: Bowel Sounds Present, Soft, Tender - Suprapubic area, - - Suprapubic catheter in place. Extremities: No edema, Capillary Refill Less than 3 Seconds Skin: No rashes, No breakdown, Excoriated - Left lower abdominal area., - - Declined skin examination of gluteal area stating that it was changed to long ago and wound care nurse at the hospital setting can see it later. Pinkish discoloration of abdominal fold. Musculoskeletal: No Tenderness to Palpation of Joints or Extremities Neurological: Cranial nerves II-XII grossly intact Psych/Mental Status: Normal Affect, Appropriate Vital Signs Temp Pulse Resp BP Pulse Ox 102.2 F H 109 H 12 136/63 H 97 08/17/19 20:42 08/17/19 20:15 08/17/19 20:15 08/17/19 20:15 08/17/19 20:15 Oxygen Flow Rate (L/min) 2 Oxygen Delivery Method Room Air Weight: 140 kg Body Mass Index (BMI) 48.3 Laboratory Tests Past 24 Hrs 08/17/19 08/17/19 08/17/19 19:20 19:20 20:10 WBC Cancelled Corrected WBC Cancelled RBC Cancelled Hgb Cancelled Hct Cancelled MCV Cancelled MCH Cancelled MCHC Cancelled RDW Std Deviation Cancelled RDW Coeff of Jessi Cancelled Plt Count Cancelled MPV Cancelled Immature Gran % (Auto) Cancelled Neut % (Auto) Cancelled Lymph % (Auto) Cancelled [place] % (Auto) Cancelled Eos % (Auto) Cancelled Baso % (Auto) Cancelled Absolute Neuts (auto) Cancelled Absolute Lymphs (auto) Cancelled Total Counted Cancelled Neutrophils % (Manual) Cancelled Band Neutrophils % Cancelled Lymphocytes % (Manual) Cancelled Monocytes % (Manual) Cancelled Eosinophils % (Manual) Cancelled Basophils % (Manual) Cancelled Metamyelocytes % Cancelled Myelocytes % Cancelled Promyelocytes % Cancelled Blast Cells % Cancelled Plasma Cell % (Manual) Cancelled Other Cells % Cancelled Nucleated RBC % Cancelled Nucleated RBCs/100 WBC Cancelled Differential Comment Cancelled Diff Path Review Cancelled Hypersegmented Neuts Cancelled Atypical Lymphocytes Cancelled Reactive Lymphocytes Cancelled Smudge Cells Cancelled Toxic Granulation Cancelled Toxic Vacuolation Cancelled Dohle Bodies Cancelled [place] Cancelled Platelet Estimate Cancelled Plt Morphology Comment Cancelled RBC Morphology Cancelled Polychromasia Cancelled Hypochromasia Cancelled Poikilocytosis Cancelled Basophilic Stippling Cancelled Anisocytosis Cancelled Microcytosis Cancelled Macrocytosis Cancelled Spherocytes Cancelled Sickle Cells Cancelled Target Cells Cancelled Tear Drop Cells Cancelled Ovalocytes Cancelled Stomatocytes Cancelled [place] Bodies Cancelled Catia Cells Cancelled Bite Cells Cancelled Crenated Cell Cancelled Acanthocytes (Spur) Cancelled Rouleaux Cancelled Schistocytes Cancelled PT 14.9 INR 1.2 APTT 32.5 Sodium 129 L Potassium 4.3 Chloride 100 Carbon Dioxide 21.0 Anion Gap 8 BUN 23 H Creatinine 1.30 H Estim Creat Clear Calc 38.04 Est GFR (MDRD) Af Amer 52 L Est GFR (MDRD) Non-Af 43 L BUN/Creatinine Ratio 17.7 Glucose 111 H Lactic Acid Calcium 9.6 Total Bilirubin 0.40 AST 12 L ALT 13 Alkaline Phosphatase 72 Total Protein 10.1 H Albumin 3.4 Globulin 6.7 H Albumin/Globulin Ratio 0.5 L Urine Color Urine Clarity Urine pH Ur Specific [place] Urine Protein Urine Glucose (UA) Urine Ketones Urine Occult Blood Urine Nitrite Urine Bilirubin Urine Urobilinogen Ur Leukocyte Esterase Urine RBC Urine WBC Ur Squamous Epith Cells Amorphous Sediment Urine Bacteria Urine Mucus 08/17/19 08/17/19 08/17/19 20:10 20:30 21:02 WBC 15.6 H Corrected WBC RBC 3.57 L Hgb 9.8 L Hct 31.3 L MCV 87.7 MCH 27.5 MCHC 31.3 L RDW Std Deviation 53.4 H RDW Coeff of Jessi 17.0 H Plt Count 321 MPV 9.9 Immature Gran % (Auto) 0.400 Neut % (Auto) 89.4 H Lymph % (Auto) 4.8 L [place] % (Auto) 4.1 Eos % (Auto) 1.0 Baso % (Auto) 0.3 Absolute Neuts (auto) 14.0 H Absolute Lymphs (auto) 0.75 L Total Counted Neutrophils % (Manual) Band Neutrophils % Lymphocytes % (Manual) Monocytes % (Manual) Eosinophils % (Manual) Basophils % (Manual) Metamyelocytes % Myelocytes % Promyelocytes % Blast Cells % Plasma Cell % (Manual) Other Cells % Nucleated RBC % 0 Nucleated RBCs/100 WBC Differential Comment Diff Path Review Hypersegmented Neuts Atypical Lymphocytes Reactive Lymphocytes Smudge Cells Toxic Granulation Toxic Vacuolation Dohle Bodies [place] Platelet Estimate Plt Morphology Comment RBC Morphology Polychromasia Hypochromasia Poikilocytosis Basophilic Stippling Anisocytosis Microcytosis Macrocytosis Spherocytes Sickle Cells Target Cells Tear Drop Cells Ovalocytes Stomatocytes [place] Bodies Catia Cells Bite Cells Crenated Cell Acanthocytes (Spur) Rouleaux Schistocytes PT INR APTT Sodium Potassium Chloride Carbon Dioxide Anion Gap BUN Creatinine Estim Creat Clear Calc Est GFR (MDRD) Af Amer Est GFR (MDRD) Non-Af BUN/Creatinine Ratio Glucose Lactic Acid 3.1 H Calcium Total Bilirubin AST ALT Alkaline Phosphatase Total Protein Albumin Globulin Albumin/Globulin Ratio Urine Color Yellow Urine Clarity Cloudy Urine pH 6.0 Ur Specific [place] 1.015 Urine Protein 30 H Urine Glucose (UA) Normal Urine Ketones Negative Urine Occult Blood 250 H Urine Nitrite Positive H Urine Bilirubin Negative Urine Urobilinogen Normal Ur Leukocyte Esterase 500 H Urine RBC 25-50 SEEN Urine WBC >100 SEEN Ur Squamous Epith Cells 0-5 SEEN Amorphous Sediment 1+ URATE Urine Bacteria 1+ Urine Mucus 0 SEEN Assessment/Plan All Active Problems (Last Reviewed 08/18/19 @ 02:04 by Kyree Dutta MD) Severe sepsis (Acute) UTI (urinary tract infection) due to urinary indwelling catheter (Acute) Severe sepsis (Acute) UTI (urinary tract infection) (Acute) MICHAELLE (acute kidney injury) (Acute) Suprapubic catheter dysfunction (Resolved) The patient is a 73 year old F with a significant history of hypertension; diabetes mellitus; chronic indwelling suprapubic catheter and urosepsis who presented to emergency department with her chills and fever and found to have tachycardia; objective fever with T-max of 102.2; leukocytosis; elevated lactic acid and with abnormal urinalysis consistent with severe sepsis secondary to likely complicated UTI. Severe sepsis secondary to likely complicated UTI Fever T-max of 102.7 Tachycardia with highest heart rate of 137; neutrophilic leukocytosis with white count of 15.6 Abnormal urinalysis in the setting of chronic indwelling Henry catheter. Chronic indwelling Henry catheter could be contributing to her UTI. Patient received vancomycin and Zosyn. Review of old records shows a urine culture on 07/02/2019 grew E. coli and Providencia stuartii both were sensitive to Zosyn and other antibiotics. Also wound abscess of her abdomen on 06/07/2019 grew Pseudomonas aeruginosa; Providencia stuartii; Corynebacterium striatum; Actinobaculum schaalii; Clostridium group. This antibiotics were susceptible to Zosyn except that possibilities were not provided for Actinobaculum schaalii. We will put patient on Zosyn. Trend lactic acid. 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 once a week on Tuesdays. Had left lower abdominal site look right and excoriated. She reports that she has been scratching and she indeed thinks the site is improving. In the setting of sepsis we will give one-time dose of fluconazole now. Probable MICHAELLE Creatinine on presentation was 1.30 review of old records shows baseline creatinine probably around 1.0. Likely intrinsic renal from toxic effects of sepsis. But cannot rule out prerenal from dehydration secondary to diuretic use. Avoid nephrotoxic's. Trend BMP. IV hydration. Hyponatremia Patient is on Lasix at home which may be causing her hyponatremia. Lasix held in the setting of severe sepsis. Receive IV hydration at the emergency department. Trend BMP. Pressure ulcer Patient reports ulcer on his coccygeal area. Patient said is it was recently to change and she refused examination of the area stating that our wound care team but she is very familiar with her will see the wound for recommendation and changes. Will order wound care consult. DVT prophylaxis Subcutaneous Lovenox ordered. In the setting of obesity and probably will order Lovenox 40 mg daily. Code Visit Inpatient E&M: 58055 Init Hosp L3
[2019-08-17] MEDS: 0.9% Normal Saline 1,000 ML 999 ML IV (22:00)
[2019-08-17 22:03] VITALS: BP 103/56; PULSE 105; PULSE 106; RESP 15; RESP 18; TEMP 38.1; O2SAT 97
[2019-08-17 23:14] VITALS: BP 109/80; PULSE 120; RESP 18; TEMP 39.3; O2SAT 97
[2019-08-17 23:16] VITALS: BMI 50.1
[2019-08-17 23:24] VITALS: BMI 50.1
[2019-08-18] VITALS (13 sets, daily range): BP systolic 94–138; BP diastolic 44–105; PULSE 78–137; RESP 16–24; TEMP 36.9–38; O2SAT 95–100
[2019-08-18 00:17] LABS: Reflex Lactate? Y
[2019-08-18 01:16] LABS: Lactic Acid 1.9 mmol/L (0.4-2.0)
--- NOTE | 2019-08-18 01:51 | SEPSIS_ITS ---
Sepsis Note - Physical Exam/Vitals Subjective: Follow-up for sepsis Objective: Chest X-Ray 08/17/19 19:47 IMPRESSION: No acute thoracic pathology. Electronically Signed: Inocente Rae, at 20:19 EDT Tel , Service support , Temp Pulse Resp BP Pulse Ox 100.4 F H 137 H 18 135/63 H 95 08/18/19 00:25 08/18/19 00:25 08/18/19 00:25 08/18/19 00:25 08/18/19 00:25 08/18/19 08/17/19 08/17/19 00:35 21:02 20:30 WBC 15.6 H Corrected WBC RBC 3.57 L Hgb 9.8 L Hct 31.3 L MCV 87.7 MCH 27.5 MCHC 31.3 L RDW Std Deviation 53.4 H RDW Coeff of Jessi 17.0 H Plt Count 321 MPV 9.9 Immature Gran % (Auto) 0.400 Neut % (Auto) 89.4 H Lymph % (Auto) 4.8 L [place] % (Auto) 4.1 Eos % (Auto) 1.0 Baso % (Auto) 0.3 Absolute Neuts (auto) 14.0 H Absolute Lymphs (auto) 0.75 L Total Counted Neutrophils % (Manual) Band Neutrophils % Lymphocytes % (Manual) Monocytes % (Manual) Eosinophils % (Manual) Basophils % (Manual) Metamyelocytes % Myelocytes % Promyelocytes % Blast Cells % Plasma Cell % (Manual) Other Cells % Nucleated RBC % 0 Nucleated RBCs/100 WBC Differential Comment Diff Path Review Hypersegmented Neuts Atypical Lymphocytes Reactive Lymphocytes Smudge Cells Toxic Granulation Toxic Vacuolation Dohle Bodies [place] Platelet Estimate Plt Morphology Comment RBC Morphology Polychromasia Hypochromasia Poikilocytosis Basophilic Stippling Anisocytosis Microcytosis Macrocytosis Spherocytes Sickle Cells Target Cells Tear Drop Cells Ovalocytes Stomatocytes [place] Bodies [place] Cells Bite Cells Crenated Cell Acanthocytes (Spur) Rouleaux Schistocytes PT INR APTT Sodium Potassium Chloride Carbon Dioxide Anion Gap BUN Creatinine Estim Creat Clear Calc Est GFR (MDRD) Af Amer Est GFR (MDRD) Non-Af BUN/Creatinine Ratio Glucose Lactic Acid 1.9 Calcium Total Bilirubin AST ALT Alkaline Phosphatase Total Protein Albumin Globulin Albumin/Globulin Ratio Urine Color Yellow Urine Clarity Cloudy Urine pH 6.0 Ur Specific [place] 1.015 Urine Protein 30 H Urine Glucose (UA) Normal Urine Ketones Negative Urine Occult Blood 250 H Urine Nitrite Positive H Urine Bilirubin Negative Urine Urobilinogen Normal Ur Leukocyte Esterase 500 H Urine RBC 25-50 SEEN Urine WBC >100 SEEN Ur Squamous Epith Cells 0-5 SEEN Amorphous Sediment 1+ URATE Urine Bacteria 1+ Urine Mucus 0 SEEN 08/17/19 08/17/19 08/17/19 20:10 20:10 19:20 WBC Corrected WBC RBC Hgb Hct MCV MCH MCHC RDW Std Deviation RDW Coeff of Jessi Plt Count MPV Immature Gran % (Auto) Neut % (Auto) Lymph % (Auto) [place] % (Auto) Eos % (Auto) Baso % (Auto) Absolute Neuts (auto) Absolute Lymphs (auto) Total Counted Neutrophils % (Manual) Band Neutrophils % Lymphocytes % (Manual) Monocytes % (Manual) Eosinophils % (Manual) Basophils % (Manual) Metamyelocytes % Myelocytes % Promyelocytes % Blast Cells % Plasma Cell % (Manual) Other Cells % Nucleated RBC % Nucleated RBCs/100 WBC Differential Comment Diff Path Review Hypersegmented Neuts Atypical Lymphocytes Reactive Lymphocytes Smudge Cells Toxic Granulation Toxic Vacuolation Dohle Bodies [place] Platelet Estimate Plt Morphology Comment RBC Morphology Polychromasia Hypochromasia Poikilocytosis Basophilic Stippling Anisocytosis Microcytosis Macrocytosis Spherocytes Sickle Cells Target Cells Tear Drop Cells Ovalocytes Stomatocytes [place] Bodies [place] Cells Bite Cells Crenated Cell Acanthocytes (Spur) Rouleaux Schistocytes PT 14.9 INR 1.2 APTT 32.5 Sodium 129 L Potassium 4.3 Chloride 100 Carbon Dioxide 21.0 Anion Gap 8 BUN 23 H Creatinine 1.30 H Estim Creat Clear Calc 38.04 Est GFR (MDRD) Af Amer 52 L Est GFR (MDRD) Non-Af 43 L BUN/Creatinine Ratio 17.7 Glucose 111 H Lactic Acid 3.1 H Calcium 9.6 Total Bilirubin 0.40 AST 12 L ALT 13 Alkaline Phosphatase 72 Total Protein 10.1 H Albumin 3.4 Globulin 6.7 H Albumin/Globulin Ratio 0.5 L Urine Color Urine Clarity Urine pH Ur Specific [place] Urine Protein Urine Glucose (UA) Urine Ketones Urine Occult Blood Urine Nitrite Urine Bilirubin Urine Urobilinogen Ur Leukocyte Esterase Urine RBC Urine WBC Ur Squamous Epith Cells Amorphous Sediment Urine Bacteria Urine Mucus 08/17/19 19:20 WBC Cancelled Corrected WBC Cancelled RBC Cancelled Hgb Cancelled Hct Cancelled MCV Cancelled MCH Cancelled MCHC Cancelled RDW Std Deviation Cancelled RDW Coeff of Jessi Cancelled Plt Count Cancelled MPV Cancelled Immature Gran % (Auto) Cancelled Neut % (Auto) Cancelled Lymph % (Auto) Cancelled [place] % (Auto) Cancelled Eos % (Auto) Cancelled Baso % (Auto) Cancelled Absolute Neuts (auto) Cancelled Absolute Lymphs (auto) Cancelled Total Counted Cancelled Neutrophils % (Manual) Cancelled Band Neutrophils % Cancelled Lymphocytes % (Manual) Cancelled Monocytes % (Manual) Cancelled Eosinophils % (Manual) Cancelled Basophils % (Manual) Cancelled Metamyelocytes % Cancelled Myelocytes % Cancelled Promyelocytes % Cancelled Blast Cells % Cancelled Plasma Cell % (Manual) Cancelled Other Cells % Cancelled Nucleated RBC % Cancelled Nucleated RBCs/100 WBC Cancelled Differential Comment Cancelled Diff Path Review Cancelled Hypersegmented Neuts Cancelled Atypical Lymphocytes Cancelled Reactive Lymphocytes Cancelled Smudge Cells Cancelled Toxic Granulation Cancelled Toxic Vacuolation Cancelled Dohle Bodies Cancelled [place]s Cancelled Platelet Estimate Cancelled Plt Morphology Comment Cancelled RBC Morphology Cancelled Polychromasia Cancelled Hypochromasia Cancelled Poikilocytosis Cancelled Basophilic Stippling Cancelled Anisocytosis Cancelled Microcytosis Cancelled Macrocytosis Cancelled Spherocytes Cancelled Sickle Cells Cancelled Target Cells Cancelled Tear Drop Cells Cancelled Ovalocytes Cancelled Stomatocytes Cancelled [place] Bodies Cancelled [place] Cells Cancelled Bite Cells Cancelled Crenated Cell Cancelled Acanthocytes (Spur) Cancelled Rouleaux Cancelled Schistocytes Cancelled PT INR APTT Sodium Potassium Chloride Carbon Dioxide Anion Gap BUN Creatinine Estim Creat Clear Calc Est GFR (MDRD) Af Amer Est GFR (MDRD) Non-Af BUN/Creatinine Ratio Glucose Lactic Acid Calcium Total Bilirubin AST ALT Alkaline Phosphatase Total Protein Albumin Globulin Albumin/Globulin Ratio Urine Color Urine Clarity Urine pH Ur Specific [place] Urine Protein Urine Glucose (UA) Urine Ketones Urine Occult Blood Urine Nitrite Urine Bilirubin Urine Urobilinogen Ur Leukocyte Esterase Urine RBC Urine WBC Ur Squamous Epith Cells Amorphous Sediment Urine Bacteria Urine Mucus General: Alert Lungs: Clear to auscultation, Normal air movement Cardiovascular: Regular rate, No murmurs, Tachycardic Capillary Refill: <3 seconds Peripheral Pulses: Normal Skin Color: [place] - Assessment/Plan Severe sepsis secondary to probable complicated cystitis Lactic acid was trended. Noted to be trending down. Urine culture was obtained at the emergency department; follow results Blood culture was obtained at the emergency department; follow results Patient was started on vancomycin and Zosyn at the emergency department. Zosyn continued.
[2019-08-18] MEDS: Fluconazole 100 MG Tablet 200 MG PO (02:49)
[2019-08-18] MEDS: Enoxaparin 40 MG/0.4 ML Syringe SC (06:25)
--- NOTE | 2019-08-18 06:42 | NURSING ---
dr madrigal called and notified of the pts bp 96/48, ordered ns at 100ml/hr x 1 liter
[2019-08-18 08:02] LABS: BUN 24 mg/dL (7-18); BUN/Creat Ratio 17.6 RATIO (10-20); Creatinine, Serum 1.36 mg/dL (0.55-1.02); EST Glomerular Filtration Rate 41 mL/min (>60); Est Glom Filt Rate - Afr Amer 50 mL/min (>60); Estimated Creatinine Clearance 36.36 ml/min; Glucose 114 mg/dL (74-106)
[2019-08-18 08:03] LABS: Anion Gap 10 (5-15); Calcium,Total 8.6 mg/dL (8.5-10.1); Chloride 106 mmol/L (98-107); Potassium 4.4 mmol/L (3.5-5.1); Sodium Level 137 mmol/L (136-145)
[2019-08-18] MEDS: 0.9% Normal Saline 1,000 ML 100 ML IV (08:19)
[2019-08-18 08:31] LABS: Hematocrit 29.4 % (37-47); Mean Corpuscular Volume 89.6 fL (81-99); Red Blood Count 3.28 M/mm3 (4.2-5.4); White Blood Count 12.8 K/mm3 (4.4-11.0)
[2019-08-18 08:32] LABS: Absolute Lymphocyte Count 0.51 X10^3/uL (0.83-4.51); Absolute Neutrophil Count 11.6 X10^3/uL (2.0-7.7); Basophil# 0.03 X10^3/uL; Basophil% 0.4 % (0-1); Differential Indicated SCAN CRITERIA MET; Eosinophil# 0.01 X10^3/uL; Eosinophils% 0.2 % (0-5); Hypochromasia 2+; Lymphocyte # 0.51 X10^3/ul (4.0); Mean Corp Hgb Conc 30.6 g/dL (32-36); Mean Corpuscular Hgb 27.4 pg (27.0-32.0); Mean Platelet Vol. 10.1 fl (6.2-12.0); Monocyte# 0.52 X10^3/uL; Monocyte% 0.1 % (0-10); Neutrophil # 11.63 X10^3/uL (2.7-7.7); Neutrophil % 91.2 % (47-70); Platelet Count 290 K/mm3 (150-450); Platelet Estimate ADEQUATE (ADEQ); RBC Distribution Width CV 16.9 % (11.6-14.6); RBC Distribution Width SD 55.3 fl (35.1-43.9)
[2019-08-18 08:45] LABS: NRBC Flagged by Analyzer 0 % (0-5)
--- NOTE | 2019-08-18 09:02 | PCM.PN.HOSP ---
Patient Problems: Active and Suspected Problems (Last Reviewed 08/18/19 @ 08:00 by Kyree Dutta MD) Severe sepsis (Acute) UTI (urinary tract infection) due to urinary indwelling catheter (Acute) Severe sepsis (Acute) Subjective: Feels 200% better today, no issues overnight Vitals/I&O's: Vital Signs Temp Pulse Resp BP Pulse Ox 98.8 F 93 16 94/49 L 98 08/18/19 08:20 08/18/19 08:20 08/18/19 08:20 08/18/19 08:20 08/18/19 08:20 Oxygen Flow Rate (L/min) 2 Oxygen Delivery Method Nasal Cannula Weight: 319 lb 10.724 oz Body Mass Index (BMI) 50.1 Intake and Output for Last 24 Hours 08/16/19 08/17/19 08/18/19 23:59 23:59 23:59 Intake Total 1100 / 1100 640 / 640 Output Total 750 / 750 Balance 1100 / 1100 -110 / -110 General: Alert, Oriented x3, Cooperative, No apparent distress HEENT: Atraumatic, PERRLA, EOMI, Normocephalic Oral: Moist Mucosa Neck: Supple, No JVD Lungs: Clear to auscultation, Normal air movement, No rhonchi, No wheeze, No rales, Diminished Cardiovascular: Regular rate, Regular Rhythm, Normal S1, Normal S2, No murmurs Abdomen: Soft, Non Tender, Non-Distended, No Hepato-splenomegaly, Obese, - - Suprapubic catheter in place Extremities: No edema, Capillary Refill Less than 3 Seconds Skin: - - Erythema and multiple skin folds Neurological: Neuro grossly intact, Sensory exam intact to light touch and pain Psych/Mental Status: Normal Affect, Appropriate Microbiology Past 72 Hours 08/17/19 21:02 Urine Catheter - Catheter Urine Culture - 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 Laboratory Results 08/17/19 19:20: WBC Cancelled, Corrected WBC Cancelled, RBC Cancelled, Hgb Cancelled, Hct Cancelled, MCV Cancelled, MCH Cancelled, MCHC Cancelled, RDW Std Deviation Cancelled, RDW Coeff of Jessi Cancelled, Plt Count Cancelled, MPV Cancelled, Immature Gran % (Auto) Cancelled, Neut % (Auto) Cancelled, Lymph % (Auto) Cancelled, [place] % (Auto) Cancelled, Eos % (Auto) Cancelled, Baso % (Auto) Cancelled, Absolute Neuts (auto) Cancelled, Absolute Lymphs (auto) Cancelled, Total Counted Cancelled, Neutrophils % (Manual) Cancelled, Band Neutrophils % Cancelled, Lymphocytes % (Manual) Cancelled, Monocytes % (Manual) Cancelled, Eosinophils % (Manual) Cancelled, Basophils % (Manual) Cancelled, Metamyelocytes % Cancelled, Myelocytes % Cancelled, Promyelocytes % Cancelled, Blast Cells % Cancelled, Plasma Cell % (Manual) Cancelled, Other Cells % Cancelled, Nucleated RBC % Cancelled, Nucleated RBCs/100 WBC Cancelled, Differential Comment Cancelled, Diff Path Review Cancelled, Hypersegmented Neuts Cancelled, Atypical Lymphocytes Cancelled, Reactive Lymphocytes Cancelled, Smudge Cells Cancelled, Toxic Granulation Cancelled, Toxic Vacuolation Cancelled, Dohle Bodies Cancelled, [place] Rods Cancelled, Platelet Estimate Cancelled, Plt Morphology Comment Cancelled, RBC Morphology Cancelled, Polychromasia Cancelled, Hypochromasia Cancelled, Poikilocytosis Cancelled, Basophilic Stippling Cancelled, Anisocytosis Cancelled, Microcytosis Cancelled, Macrocytosis Cancelled, Spherocytes Cancelled, Sickle Cells Cancelled, Target Cells Cancelled, Tear Drop Cells Cancelled, Ovalocytes Cancelled, Stomatocytes Cancelled, [place] Bodies Cancelled, [place] Cells Cancelled, Bite Cells Cancelled, Crenated Cell Cancelled, Acanthocytes (Spur) Cancelled, Rouleaux Cancelled, Schistocytes Cancelled 08/17/19 19:20: Sodium 129 L, Potassium 4.3, Chloride 100, Carbon Dioxide 21.0, Anion Gap 8, BUN 23 H, Creatinine 1.30 H, Estim Creat Clear Calc 38.04, Est GFR (MDRD) Af Amer 52 L, Est GFR (MDRD) Non-Af 43 L, BUN/Creatinine Ratio 17.7, Glucose 111 H, Calcium 9.6, Total Bilirubin 0.40, AST 12 L, ALT 13, Alkaline Phosphatase 72, Total Protein 10.1 H, Albumin 3.4, Globulin 6.7 H, Albumin/Globulin Ratio 0.5 L 08/17/19 20:10: PT 14.9, INR 1.2, APTT 32.5 08/17/19 20:10: Lactic Acid 3.1 H 08/17/19 20:30: WBC 15.6 H, RBC 3.57 L, Hgb 9.8 L, Hct 31.3 L, MCV 87.7, MCH 27.5, MCHC 31.3 L, RDW Std Deviation 53.4 H, RDW Coeff of Jessi 17.0 H, Plt Count 321, MPV 9.9, Immature Gran % (Auto) 0.400, Neut % (Auto) 89.4 H, Lymph % (Auto) 4.8 L, [place] % (Auto) 4.1, Eos % (Auto) 1.0, Baso % (Auto) 0.3, Absolute Neuts (auto) 14.0 H, Absolute Lymphs (auto) 0.75 L, Nucleated RBC % 0 08/17/19 21:02: Urine Color Yellow, Urine Clarity Cloudy, Urine pH 6.0, Ur Specific [place] 1.015, Urine Protein 30 H, Urine Glucose (UA) Normal, Urine Ketones Negative, Urine Occult Blood 250 H, Urine Nitrite Positive H, Urine Bilirubin Negative, Urine Urobilinogen Normal, Ur Leukocyte Esterase 500 H, Urine RBC 25-50 SEEN, Urine WBC >100 SEEN, Ur Squamous Epith Cells 0-5 SEEN, Amorphous Sediment 1+ URATE, Urine Bacteria 1+, Urine Mucus 0 SEEN 08/18/19 00:35: Lactic Acid 1.9 08/18/19 05:40: WBC 12.8 H, RBC 3.28 L, Hgb 9.0 L, Hct 29.4 L, MCV 89.6, MCH 27.4, MCHC 30.6 L, RDW Std Deviation 55.3 H, RDW Coeff of Jessi 16.9 H, Plt Count 290, MPV 10.1, Immature Gran % (Auto) 0.000, Neut % (Auto) 91.2 H, Lymph % (Auto) 4.0 L, [place] % (Auto) 0.1, Eos % (Auto) 0.2, Baso % (Auto) 0.4, Absolute Neuts (auto) 11.6 H, Absolute Lymphs (auto) 0.51 L, Nucleated RBC % 0, Platelet Estimate ADEQUATE, Hypochromasia 2+ 08/18/19 05:40: Sodium 137, Potassium 4.4, Chloride 106, Carbon Dioxide 21.0, Anion Gap 10, BUN 24 H, Creatinine 1.36 H, Estim Creat Clear Calc 36.36, Est GFR (MDRD) Af Amer 50 L, Est GFR (MDRD) Non-Af 41 L, BUN/Creatinine Ratio 17.6, Glucose 114 H, Calcium 8.6 08/18/19 06:47: POC Glucose Pending Current Medications Acetaminophen (Tylenol) 650 mg PO Q6H PRN PRN PRN Reason: Mild Pain (1-3)/Temp > 100.7 F Hydrocodone Bitart/Acetaminophen ([place] 5mg-325mg) tablet PO Q6H PRN PRN PRN Reason: PAIN Baclofen (Lioresal) 10 mg PO TID [facility] Dextrose (D50w Syringe) 0 gm IV X1 PRN; Protocol PRN Reason: Hypoglycemia Duloxetine HCl (Cymbalta) 60 mg PO DAILY [facility] Enoxaparin Sodium (Lovenox) 40 mg SC DAILY@0600 [facility] Last Admin: 08/18/19 06:25 Dose: 40 mg Documented by: Fluconazole (Diflucan) 200 mg PO QWEEK [facility] Glucagon () 1 mg IM .X1 PRN PRN Reason: Hypoglycemia Piperacillin Sod/Tazobactam (Sod 3.375 gm/ Sodium Chloride) 50 mls @ 12.5 mls/hr IV Q8 [facility] Last Admin: 08/18/19 06:26 Dose: 12.5 mls/hr Documented by: Sodium Chloride () 250 mls @ 15 mls/hr IV .[id number] PRN PRN Reason: SALINE FLUSH Sodium Chloride () 1,000 mls @ 100 mls/hr IV .Q10H [facility] Stop: 08/18/19 16:44 Last Admin: 08/18/19 08:19 Dose: 100 mls/hr Documented by: Insulin Human Lispro (Humalog Kwikpen (Bkc)) 0 unit SC ACHS [facility]; Protocol Last Admin: 08/18/19 07:30 Dose: Not Given Documented by: Nutritional Formula (Lactose Free) (Glucerna Shake) 120 ml PO 4X/DAY [facility] Nystatin (Mycostatin Powder) 1 applic TOPICAL BID PRN PRN; Protocol PRN Reason: yeast infection to fold areas Ondansetron HCl (Zofran) 4 mg IV Q6H PRN PRN PRN Reason: NAUSEA Pantoprazole Sodium (Protonix) 40 mg PO DAILY [facility] Pravastatin Sodium (Pravachol) 20 mg PO QHS [facility] Sodium Chloride () 5 - 15 ml IV UD PRN PRN Reason: SALINE FLUSH Venlafaxine HCl (Effexor Xr) 75 mg PO BID [facility] Vitamin E (Vitamin E) units PO DAILY [facility] Medical Necessity - Tobacco Use Smoking Status: Never smoker Assessment/Plan All Active Problems (Last Reviewed 08/18/19 @ 08:00 by Kyree Dutta MD) Severe sepsis (Acute) UTI (urinary tract infection) due to urinary indwelling catheter (Acute) Severe sepsis (Acute) UTI (urinary tract infection) (Acute) MICHAELLE (acute kidney injury) (Acute) Suprapubic catheter dysfunction (Resolved) 1. Severe sepsis secondary to UTI -She has a chronic suprapubic catheter that was infected in June with [place] she had an E. coli. -Continue with Zosyn based on the previous sensitivities -Urine and blood cultures are pending -Continue with IV fluids -No MICHAELLE, her creatinine is at baseline -Lactate is normal 2. 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 VITA/morbid obesity/HTN/HLD -BMI is 50.1, discussed lifestyle modifications -She is on Lasix at home which will be held while she is getting fluids -Continue with Cardizem, lisinopril when hemodynamically stable 4. DM 2 -Hold home metformin, continue with sliding scale insulin -Accu-Cheks AC at bedtime 5. Anxiety/depression -Continue with Effexor and Cymbalta -Stable 6. GERD -Stable -Continue with PPI 7. Seizure disorder -Stable, no recent seizures -Continue with Keppra DVT: Lovenox Code Visit Inpatient E&M: 43653 [facility] Hosp L2
[2019-08-18] MEDS: Glucerna Shake 120 ML LIQUID PO ×4 (09:50→22:15)
[2019-08-18] MEDS: Baclofen 10 MG Tablet PO ×3 (09:50→22:14)
[2019-08-18] MEDS: Pantoprazole Sodium 40 MG Tablet PO (09:51)
[2019-08-18] MEDS: Nystatin Powder 15gm Bottle 1 APPLIC TOPICAL (09:51)
[2019-08-18] MEDS: DULoxetine Hcl 60 MG Capsule PO (09:51)
[2019-08-18] MEDS: Acetaminophen 325 MG Tablet 650 MG PO ×2 (09:53→18:32)
[2019-08-18 11:27] LABS: Bedside Glucose 108 mg/dL (70-110)
[2019-08-18] MEDS: Vitamin E 400 UNITS Capsule PO (11:36)
[2019-08-18 11:41] LABS: Bedside Glucose 118 mg/dL (70-110)
[2019-08-18 16:25] LABS: Bedside Glucose 98 mg/dL (70-110)
[2019-08-18] MEDS: Cyanocobalamin 500 MCG Tablet 1000 MCG PO (17:04)
[2019-08-18] MEDS: Tolterodine Tartrate 4 MG CAP.SA PO (17:05)
[2019-08-18] MEDS: 0.9% NaCl IVPB Med Flush (250 mL) 15 ML IV (18:31)
[2019-08-18] MEDS: DiphenhydrAMINE 25 MG Capsule PO (20:30)
[2019-08-18] MEDS: Gabapentin 600 MG Tablet PO (22:14)
[2019-08-18] MEDS: levETIRAcetam 500 MG Tablet PO (22:14)
[2019-08-18] MEDS: Pravastatin 20 MG Tablet PO (22:14)
[2019-08-18] MEDS: Venlafaxine XR 150 MG Capsule PO (22:14)
[2019-08-18] MEDS: HYDROcodone Bitartrate/Apap 5/325 Tablet PO (22:14)
[2019-08-18] MEDS: Methenamine Hippurate 1 GM Tablet PO (22:14)
[2019-08-18 22:31] LABS: Bedside Glucose 105 mg/dL (70-110)
[2019-08-19 02:18] VITALS: BP 126/60; PULSE 109; RESP 18; TEMP 36.5; O2SAT 98
[2019-08-19] MEDS: Baclofen 10 MG Tablet PO ×3 (05:24→22:20)
[2019-08-19] MEDS: DiphenhydrAMINE 25 MG Capsule PO ×2 (05:24→20:07)
[2019-08-19] MEDS: Enoxaparin 40 MG/0.4 ML Syringe SC (05:25)
[2019-08-19 06:48] LABS: Absolute Lymphocyte Count 0.71 X10^3/uL (0.83-4.51); Basophil# 0.02 X10^3/uL; Basophil% 0.3 % (0-1); Eosinophil# 0.33 X10^3/uL; Eosinophils% 5.1 % (0-5); Hematocrit 29.5 % (37-47); Hemoglobin 8.9 g/dL (12.0-15.0); Lymphocyte # 0.71 X10^3/ul (4.0); Lymphocyte % 10.9 % (19-41); Mean Corp Hgb Conc 30.2 g/dL (32-36); Mean Corpuscular Hgb 27.1 pg (27.0-32.0); Mean Corpuscular Volume 89.9 fL (81-99); Mean Platelet Vol. 10.4 fl (6.2-12.0); Monocyte# 0.45 X10^3/uL; Monocyte% 6.9 % (0-10); NRBC Flagged by Analyzer 0 % (0-5); Neutrophil # 4.95 X10^3/uL (2.7-7.7); Neutrophil % 76.2 % (47-70); Platelet Count 218 K/mm3 (150-450); RBC Distribution Width SD 56.1 fl (35.1-43.9); Red Blood Count 3.28 M/mm3 (4.2-5.4); White Blood Count 6.5 K/mm3 (4.4-11.0)
[2019-08-19 06:51] LABS: Anion Gap 6 (5-15); BUN 19 mg/dL (7-18); BUN/Creat Ratio 16.4 RATIO (10-20); Calcium,Total 9.2 mg/dL (8.5-10.1); Chloride 106 mmol/L (98-107); Creatinine, Serum 1.16 mg/dL (0.55-1.02); EST Glomerular Filtration Rate 49 mL/min (>60); Est Glom Filt Rate - Afr Amer 59 mL/min (>60); Estimated Creatinine Clearance 42.63 ml/min; Glucose 108 mg/dL (74-106); Sodium Level 135 mmol/L (136-145)
[2019-08-19 06:55] LABS: Bedside Glucose 95 mg/dL (70-110)
[2019-08-19 07:15] VITALS: BP 114/61; PULSE 92; RESP 18; TEMP 36.9; O2SAT 97
[2019-08-19] MEDS: Acetaminophen 325 MG Tablet 650 MG PO (07:42)
--- NOTE | 2019-08-19 08:26 | NURSING ---
wound photo: left abdominal fold
--- NOTE | 2019-08-19 08:27 | NURSING ---
wound photo: sacrum
--- NOTE | 2019-08-19 08:52 | PCM.PN.HOSP ---
Patient Problems: Active and Suspected Problems (Last Reviewed 08/18/19 @ 08:00 by Kyree Dutta MD) Severe sepsis (Acute) UTI (urinary tract infection) due to urinary indwelling catheter (Acute) Severe sepsis (Acute) Subjective: Patient seen and examined. She has no complaints and feels well today. Review of systems is otherwise negative. Labs and vitals reviewed. Preliminary blood cultures are negative and urine cultured E. coli. Vitals/I&O's: Vital Signs Temp Pulse Resp BP Pulse Ox 97.7 F L 109 H 18 126/60 H 97 08/19/19 02:18 08/19/19 02:18 08/19/19 02:18 08/19/19 02:18 08/19/19 07:15 Oxygen Flow Rate (L/min) 2 Oxygen Delivery Method Nasal Cannula Weight: 319 lb 10.724 oz Body Mass Index (BMI) 50.1 Intake and Output for Last 24 Hours 08/17/19 08/18/19 08/19/19 23:59 23:59 23:59 Intake Total 1100 / 1100 2446 / 3146 1397.5 / 1397.5 Output Total 2800 / 4200 2750 / 2750 Balance 1100 / 1100 -354 / -1054 -1352.5 / -1352.5 General: Alert, Oriented x3, Cooperative, - - super morbid obesity HEENT: Atraumatic, PERRLA, EOMI, Normocephalic Oral: Moist Mucosa Neck: Supple, No JVD, Negative Carotid Bruits Lungs: Clear to auscultation, Normal air movement, No rhonchi, No wheeze, No rales Cardiovascular: Regular rate, Regular Rhythm, Normal S1, Normal S2, No murmurs Abdomen: Bowel Sounds Present, Soft, Non Tender, Non-Distended, No Hepato-splenomegaly Extremities: No clubbing, No cyanosis, No edema, Capillary Refill Less than 3 Seconds Skin: No rashes, No breakdown Musculoskeletal: No Tenderness to Palpation of Joints or Extremities Lymphatic: No Cervical, Supraclavicular, or Inguinal Adenopathy Neurological: Cranial nerves II-XII grossly intact, Neuro grossly intact, Motor Exam 5/5 strength throughout Psych/Mental Status: Normal Affect, Appropriate, Alert and oriented to time, place, person, mood and affect Microbiology Past 72 Hours 08/17/19 21:02 Urine Catheter - Catheter Urine Culture - Preliminary Escherichia coli Laboratory Results 08/18/19 05:40: Sodium 137, Potassium 4.4, Chloride 106, Carbon Dioxide 21.0, Anion Gap 10, BUN 24 H, Creatinine 1.36 H, Estim Creat Clear Calc 36.36, Est GFR (MDRD) Af Amer 50 L, Est GFR (MDRD) Non-Af 41 L, BUN/Creatinine Ratio 17.6, Glucose 114 H, Calcium 8.6 08/18/19 06:47: POC Glucose 108 08/18/19 11:30: POC Glucose 118 H 08/18/19 16:22: POC Glucose 98 08/18/19 22:10: POC Glucose 105 08/19/19 06:00: WBC 6.5, RBC 3.28 L, Hgb 8.9 L, Hct 29.5 L, MCV 89.9, MCH 27.1, MCHC 30.2 L, RDW Std Deviation 56.1 H, RDW Coeff of Jessi 17.0 H, Plt Count 218, MPV 10.4, Immature Gran % (Auto) 0.600, Neut % (Auto) 76.2 H, Lymph % (Auto) 10.9 L, [place] % (Auto) 6.9, Eos % (Auto) 5.1 H, Baso % (Auto) 0.3, Absolute Neuts (auto) 5.0, Absolute Lymphs (auto) 0.71 L, Nucleated RBC % 0 08/19/19 06:00: Sodium 135 L, Potassium 4.0, Chloride 106, Carbon Dioxide 23.0, Anion Gap 6, BUN 19 H, Creatinine 1.16 H, Estim Creat Clear Calc 42.63, Est GFR (MDRD) Af Amer 59 L, Est GFR (MDRD) Non-Af 49 L, BUN/Creatinine Ratio 16.4, Glucose 108 H, Calcium 9.2 08/19/19 06:50: POC Glucose 95 Diagnostic Data Chest X-Ray 08/17/19 19:47 IMPRESSION: No acute thoracic pathology. Electronically Signed: Inocente Rae, at 20:19 EDT Tel , Service support , Current Medications Acetaminophen (Tylenol) 650 mg PO Q6H PRN PRN PRN Reason: Mild Pain (1-3)/Temp > 100.7 F Last Admin: 08/19/19 07:42 Dose: 650 mg Documented by: Hydrocodone Bitart/Acetaminophen ([place] 5mg-325mg) 1 tablet PO Q6H PRN PRN PRN Reason: PAIN Last Admin: 08/18/19 22:14 Dose: 1 tablet Documented by: Albuterol Sulfate (Ventolin Aerosols) 2.5 mg INHALATION Q4H PRN PRN Reason: SOB &/OR WHEEZING Baclofen (Lioresal) 10 mg PO TID [facility] Last Admin: 08/19/19 05:24 Dose: 10 mg Documented by: Cyanocobalamin (Vitamin B12) 1,000 mcg PO DAILY [facility] Last Admin: 08/18/19 17:04 Dose: 1,000 mcg Documented by: Dextrose (D50w Syringe) 0 gm IV X1 PRN; Protocol PRN Reason: Hypoglycemia Diphenhydramine HCl (Benadryl) 25 mg PO BID PRN PRN PRN Reason: Allergies/itching Last Admin: 08/19/19 05:24 Dose: 25 mg Documented by: Duloxetine HCl (Cymbalta) 60 mg PO DAILY [facility] Last Admin: 08/18/19 09:51 Dose: 60 mg Documented by: Enoxaparin Sodium (Lovenox) 40 mg SC DAILY@0600 [facility] Last Admin: 08/19/19 05:25 Dose: 40 mg Documented by: Fluconazole (Diflucan) 200 mg PO QWEEK [facility] Fluconazole (Diflucan) 200 mg PO Tu [facility] Gabapentin (Neurontin) 600 mg PO BID [facility] Last Admin: 08/18/19 22:14 Dose: 600 mg Documented by: Glucagon () 1 mg IM .X1 PRN PRN Reason: Hypoglycemia Piperacillin Sod/Tazobactam (Sod 3.375 gm/ Sodium Chloride) 50 mls @ 12.5 mls/hr IV Q8 [facility] Last Admin: 08/19/19 05:24 Dose: 12.5 mls/hr Documented by: Sodium Chloride () 250 mls @ 15 mls/hr IV .[id number] PRN PRN Reason: SALINE FLUSH Last Infusion: 08/19/19 05:25 Dose: 0 mls/hr Documented by: Insulin Human Lispro (Humalog Kwikpen (Bkc)) 0 unit SC ACHS [facility]; Protocol Last Admin: 08/19/19 06:54 Dose: Not Given Documented by: Levetiracetam (Keppra Tablet) 500 mg PO QHS [facility] Last Admin: 08/18/19 22:14 Dose: 500 mg Documented by: Methenamine Hippurate (Hiprex) 1 gm PO BID [facility] Last Admin: 08/18/19 22:14 Dose: 1 gm Documented by: Nutritional Formula (Lactose Free) (Glucerna Shake) 120 ml PO 4X/DAY [facility] Last Admin: 08/18/19 22:15 Dose: 120 ml Documented by: Nystatin (Mycostatin Powder) 1 applic TOPICAL BID PRN PRN; Protocol PRN Reason: yeast infection to fold areas Last Admin: 08/18/19 09:51 Dose: 1 dose Documented by: Ondansetron HCl (Zofran) 4 mg IV Q6H PRN PRN PRN Reason: NAUSEA Pantoprazole Sodium (Protonix) 40 mg PO DAILY [facility] Last Admin: 08/18/19 09:51 Dose: 40 mg Documented by: Pravastatin Sodium (Pravachol) 20 mg PO QHS [facility] Last Admin: 08/18/19 22:14 Dose: 20 mg Documented by: Sodium Chloride () 5 - 15 ml IV UD PRN PRN Reason: SALINE FLUSH Tolterodine Tartrate (Detrol [place]) 4 mg PO DAILY [facility] Last Admin: 08/18/19 17:05 Dose: 4 mg Documented by: Venlafaxine HCl (Effexor Xr) 150 mg PO BID [facility] Last Admin: 08/18/19 22:14 Dose: 150 mg Documented by: Vitamin E (Vitamin E) 400 units PO DAILY [facility] Last Admin: 08/18/19 11:36 Dose: 400 units Documented by: Medical Necessity - Tobacco Use Smoking Status: Never smoker Assessment/Plan All Active Problems (Last Reviewed 08/18/19 @ 08:00 by Kyree Dutta MD) Severe sepsis (Acute) UTI (urinary tract infection) due to urinary indwelling catheter (Acute) Severe sepsis (Acute) UTI (urinary tract infection) (Acute) MICHAELLE (acute kidney injury) (Acute) Suprapubic catheter dysfunction (Resolved) 1. Sepsis due to UTI feels better today. urine cultured UTI, blood cultures are negative so far has chronic suprapubic catheter in place, and says she gets recurrent UTI's, especially if she doesnt drink enough water wbc down to 6.5 today, temperature has been down for ~ 24 hours will continue IV antibiotics for today 2. Chronic fungal infection of his abdominal folds: On Diflucan weekly and nystatin. Wound care on board 3. Hypertension: Well controlled. On Cardizem and lisinopril. Will resume Lasix since sepsis has resolved. 4. Type 2 diabetes mellitus: On insulin sliding scale. Accu-Cheks before meals at bedtime. Resume metformin on discharge. 5. Hyperlipidemia: On statin 6. Anxiety and depression: On Effexor and Cymbalta 7. GERD: Stable 8. Seizure disorder: On Keppra 8. CKD stage III: Creatinine is 1.16 today with a EGFR of 49 Will monitor. DVT prophylaxis: Lovenox Code Visit Inpatient E&M: 32632 [facility] Hosp L2
[2019-08-19] MEDS: Glucerna Shake 120 ML LIQUID PO ×4 (09:22→21:10)
[2019-08-19] MEDS: DULoxetine Hcl 60 MG Capsule PO (09:23)
[2019-08-19] MEDS: Vitamin E 400 UNITS Capsule PO (09:24)
[2019-08-19] MEDS: Tolterodine Tartrate 4 MG CAP.SA PO (09:24)
[2019-08-19] MEDS: Cyanocobalamin 500 MCG Tablet 1000 MCG PO (09:25)
[2019-08-19] MEDS: Pantoprazole Sodium 40 MG Tablet PO (09:26)
[2019-08-19] MEDS: Methenamine Hippurate 1 GM Tablet PO ×2 (09:26→22:20)
[2019-08-19] MEDS: Gabapentin 600 MG Tablet PO ×2 (09:26→22:21)
[2019-08-19] MEDS: Venlafaxine XR 150 MG Capsule PO ×2 (09:27→22:20)
--- NOTE | 2019-08-19 09:49 | CASEMGMT ---
Pt has a general POA form and a LW on file here in the summary tab of the e-chart. The general POA form does have one provision pertaining to medical care. Pt's POA is pt's sister Esperanza Schaeferadden. CLIFFORD Beasley
--- NOTE | 2019-08-19 10:55 | CASEMGMT ---
RN CONRAD Face to Face with patient for initial transition planning/care coordination assessment. RN CM introduced self and role at [facility]. Patient lying in bed, alert and oriented. Patient willing to participate in assessment and is able to answer all questions appropriately. Care providers, pharmacy, and demographics verified. Patient wishes to discharge home, denies need for home health at this time. Patient states she has no further needs or concerns at this time. CM to follow for discharge planning needs that may arise. PCP: [facility] Specialists: None Preferred Pharmacy: [facility] Insurance: [employer] Prescription Benefit: yes Living Will/HPOA: yes, sister Esperanza BENAVIDES: sister Living Arrangements: Patient lives in modular home with ramp to enter the home. Patient has 24 hour live in healthcare translator. Transportation: handicap van and has customer service driver DME/HHC: Patient denies need for HHC. [facility] HHC in the past. Patient has shower chair, raised toilet, hospital bed, grab bars, electric WC, medical alert, home oxygen 2 lpm at night Manjit Disposition Plan: Patient to discharge home with family support and follow-up plans in place. Asya CHUA, RN, CM
[2019-08-19 11:30] LABS: Bedside Glucose 130 mg/dL (70-110)
[2019-08-19 13:09] VITALS: BP 102/47; PULSE 99; RESP 16; TEMP 37.1; O2SAT 99
[2019-08-19 16:40] LABS: Bedside Glucose 97 mg/dL (70-110)
[2019-08-19 17:30] VITALS: BP 116/91; PULSE 94; RESP 13; TEMP 37.3; O2SAT 96
[2019-08-19] MEDS: 0.9% NaCl Peripheral Flush Adult/Peds IV (20:10)
[2019-08-19 20:50] VITALS: BP 105/61; PULSE 98; RESP 18; TEMP 37.1; O2SAT 100
[2019-08-19] MEDS: levETIRAcetam 500 MG Tablet PO (22:20)
[2019-08-19] MEDS: Pravastatin 20 MG Tablet PO (22:20)
[2019-08-19 22:30] LABS: Bedside Glucose 107 mg/dL (70-110)
[2019-08-19] MEDS: HYDROcodone Bitartrate/Apap 5/325 Tablet PO (23:01)
[2019-08-20 02:26] VITALS: BP 102/64; PULSE 98; RESP 18; TEMP 36.7; O2SAT 96
[2019-08-20] MEDS: Enoxaparin 40 MG/0.4 ML Syringe SC (06:13)
[2019-08-20] MEDS: Baclofen 10 MG Tablet PO (06:13)
[2019-08-20] MEDS: 0.9% NaCl IVPB Med Flush (250 mL) 15 ML IV (06:14)
[2019-08-20 06:28] LABS: Absolute Lymphocyte Count 1.16 X10^3/uL (0.83-4.51); Basophil# 0.03 X10^3/uL; Basophil% 0.5 % (0-1); Eosinophils% 5.1 % (0-5); Hematocrit 29.2 % (37-47); Hemoglobin 8.8 g/dL (12.0-15.0); Lymphocyte # 1.16 X10^3/ul (4.0); Lymphocyte % 19.7 % (19-41); Mean Corp Hgb Conc 30.1 g/dL (32-36); Mean Corpuscular Hgb 27.2 pg (27.0-32.0); Mean Corpuscular Volume 90.4 fL (81-99); Mean Platelet Vol. 9.6 fl (6.2-12.0); Monocyte# 0.36 X10^3/uL; Monocyte% 6.1 % (0-10); NRBC Flagged by Analyzer 0 % (0-5); Neutrophil # 4.03 X10^3/uL (2.7-7.7); Neutrophil % 68.3 % (47-70); Platelet Count 287 K/mm3 (150-450); RBC Distribution Width CV 16.6 % (11.6-14.6); RBC Distribution Width SD 55.6 fl (35.1-43.9); Red Blood Count 3.23 M/mm3 (4.2-5.4); White Blood Count 5.9 K/mm3 (4.4-11.0)
[2019-08-20 06:46] LABS: Bedside Glucose 113 mg/dL (70-110)
[2019-08-20 06:52] LABS: Anion Gap 4 (5-15); BUN 17 mg/dL (7-18); BUN/Creat Ratio 13.8 RATIO (10-20); Calcium,Total 9.2 mg/dL (8.5-10.1); Chloride 104 mmol/L (98-107); Creatinine, Serum 1.23 mg/dL (0.55-1.02); EST Glomerular Filtration Rate 46 mL/min (>60); Est Glom Filt Rate - Afr Amer 55 mL/min (>60); Glucose 117 mg/dL (74-106); Potassium 3.8 mmol/L (3.5-5.1); Sodium Level 134 mmol/L (136-145)
[2019-08-20 07:57] VITALS: O2SAT 95
[2019-08-20 08:05] VITALS: BP 112/58; PULSE 90; RESP 20; TEMP 37.4; O2SAT 94
[2019-08-20 08:09] VITALS: PULSE 80
[2019-08-20] MEDS: Fluconazole 100 MG Tablet 200 MG PO (08:20)
[2019-08-20] MEDS: Cyanocobalamin 500 MCG Tablet 1000 MCG PO (08:20)
[2019-08-20] MEDS: Nystatin Powder 15gm Bottle 1 APPLIC TOPICAL (08:20)
[2019-08-20] MEDS: Vitamin E 400 UNITS Capsule PO (08:22)
[2019-08-20] MEDS: Pantoprazole Sodium 40 MG Tablet PO (08:22)
[2019-08-20] MEDS: Tolterodine Tartrate 4 MG CAP.SA PO (08:22)
[2019-08-20] MEDS: Methenamine Hippurate 1 GM Tablet PO (08:23)
[2019-08-20] MEDS: Venlafaxine XR 150 MG Capsule PO (08:23)
[2019-08-20] MEDS: Gabapentin 600 MG Tablet PO (08:23)
[2019-08-20] MEDS: Glucerna Shake 120 ML LIQUID PO (08:27)
--- NOTE | 2019-08-20 09:15 | PCM.DC ---
- Discharge Diagnoses Current Active Problems: Current Active and Chronic Problems (Last Reviewed 08/18/19 @ 08:00 by Kyree Dutta MD) Severe sepsis (Acute) Cellulitis of left abdominal wall (Chronic) UTI (urinary tract infection) due to urinary indwelling catheter (Acute) Severe sepsis (Acute) You will use the following diet at home:: Calorie/Carbohydrate Controlled (specify 1200, 1400, etc) - 1800 Your food should be the consistency of: Regular Your liquids should be the consistency of: Regular/Thin Weight Bearing Status: Weight bearing as tolerated Call your doctor if you observe: Fever of 101 or Higher, Inability to urinate, - - buring and difficulty with urination Instructions: Understanding Urinary Tract Infections (UTIs) Allergies/Adverse Reactions: Allergies adhesive tape Allergy (Verified 08/17/19 23:34) blisters Influenza Virus Vaccines Allergy (Verified 08/17/19 23:34) shortness of breath/severe wheezing iron Allergy (Verified 08/17/19 23:34) from IV form chest pressure and heart palpitations Sulfa (Sulfonamide Antibiotics) Allergy (Verified 08/17/19 23:34) Shortness of breath bactrim does not work for her-per pcp paperwork meloxicam [From Mobic] Adverse Reaction (Verified 08/17/19 23:34) gi upset seasonal allergies Allergy (Uncoded 08/17/19 23:34) Other Medications to take at Discharge Furosemide [Lasix] 20 mg PO BID 09/30/13 Albuterol Inhaler [Ventolin Hfa] 2 puff INHALATION Q4H PRN PRN 10/30/18 Baclofen 10 mg PO TID 10/30/18 Gabapentin [Neurontin] 600 mg PO BID 10/30/18 Lisinopril [Zestril] 10 mg PO DAILY 10/30/18 Multivitamins,Ther W-Minerals [Multivitamin With Minerals] 1 tablet PO TID 10/30/18 Nystatin Powder [Mycostatin Powder] 1 applicatio TOPICAL BID PRN PRN 10/30/18 Oxybutynin Chloride [Ditropan Xl] 15 mg PO DAILY 10/30/18 Vitamin E 1,000 iu PO DAILY 10/30/18 levETIRAcetam tablet [Keppra tablet] 500 mg PO QHS 10/30/18 metFORMIN HCl [Glucophage] 500 mg PO BID 10/30/18 Cyanocobalamin (Vitamin B-12) [B-12] 1,000 mcg PO DAILY 12/17/18 Pravastatin [Pravachol] 20 mg PO QHS 12/17/18 Duloxetine HCl 60 mg PO QHS 03/22/19 Methenamine Hippurate [Hiprex] 1 gm PO BID 04/05/19 Fluconazole 200 mg PO TU 07/02/19 Fluticasone Propionate 2 spry INHALATION DAILY PRN 07/02/19 Hydrocodone Bitart/Apap 5-325 [[place] 5/325] 1 tab PO Q6H PRN PRN 07/02/19 Venlafaxine XR [Effexor Xr] 150 mg PO BID 07/02/19 Ascorbic Acid [Vitamin C] 500 mg PO BID 08/18/19 Diltiazem CD [Cardizem CD] 120 mg PO DAILY 08/18/19 DiphenhydrAMINE [Benadryl] 20 mg PO BID PRN PRN 08/18/19 Pantoprazole Sodium [Protonix] 40 mg PO DAILY 08/18/19 Potassium Chloride [K-Dur] 10 meq PO DAILYCM 08/18/19 Cefdinir [Omnicef [equiv]] 300 mg PO Q12H #10 cap 08/20/19 The following prescriptions were given: Cefdinir [Omnicef [equiv]] 300 mg PO Q12H #10 cap Transmission Status: Pending to [facility]/pharmacy #[id number] Primary Care Physician: Noy Chakraborty MD [Primary Care Provider] - Please follow up with your Primary Care Physician in: one week Test Results: Test results from this visit will be discussed in further detail at your follow-up appointment, if applicable. Please Follow Up With: Rebecca Zavala MD When: 1-2 weeks Proposed Discharge Date: 08/20/19
--- NOTE | 2019-08-20 09:17 | PCM.DC.SUM ---
Discharge Date and Diagnosis - Problem List Patient Problems: Active and Suspected Problems (Last Reviewed 08/18/19 @ 08:00 by Kyree Dutta MD) Severe sepsis (Acute) UTI (urinary tract infection) due to urinary indwelling catheter (Acute) Severe sepsis (Acute) Date of Admission: 08/17/19 Date of Discharge: 08/20/19 - Primary Discharge Diagnosis Active and Suspected Problems (Last Reviewed 08/18/19 @ 08:00 by Kyree Dutta MD) Severe sepsis (Acute) UTI (urinary tract infection) due to urinary indwelling catheter (Acute) Severe sepsis (Acute) - Secondary Discharge Diagnosis Chronic Problems (Last Reviewed 08/18/19 @ 08:00 by Kyree Dutta MD) Ulcer of abdomen wall with fat layer exposed (Chronic) Ulcer of left groin with fat layer exposed (Chronic) Pressure ulcer of coccygeal region, stage 3 (Chronic) Morbid obesity (Chronic) Anxiety and depression (Chronic) HTN (hypertension) (Chronic) HLD (hyperlipidemia) (Chronic) Cellulitis of left abdominal wall (Chronic) Debility (Chronic) Depression (Chronic) VITA (obstructive sleep apnea) (Chronic) Candidal intertrigo (Chronic) Hospital Course and Treatment Imaging Results: Diagnostic Data Chest X-Ray 08/17/19 19:47 IMPRESSION: No acute thoracic pathology. Electronically Signed: Inocente Butch, at 20:19 EDT Tel , Service support , Consultations 08/18/19 01:57 Consult: Onc/Wound/tax associate attorney Routine Comment: Reason for Consult:: pressure ulcer at coccyx Operations: None Procedures: None Summary of Care Provided: The patient is a 73 year old F with past medical history as listed. She has a chronic indwelling suprapubic catheter and has had repeated episodes of UTI. She was admitted through the ED on 08/17/2019 with a complaint of fever and chills which started the same day of admission. Temperature peaked at 101.8F at home. She was found to have leukocytosis and elevated lactic acid and UA showed evidence of UTI. She was admitted and managed for sepsis due to UTI and started on vancomycin and Zosyn the ED. Antibiotics were eventually transitioned to Zosyn. Blood cultures showed no growth after 48 hours and urine culture E. coli and gram-negative odin as well as a gram-positive cocci possibly enterococcus. Patient's fever resolved and she felt much better. Patient was discharged home on 08/20/2019 with a prescription for p.o. Omnicef for 5 days. She is to follow-up with her primary care doctor within 1 week and is also to follow-up with urology as she had been following urology previously. She is also follow with wound care on account of her sacral decubitus ulcer. Since and examined prior to discharge. She felt well and was eager to go home. Labs and vitals reviewed. Home medication reviewed and reconciled. o/e: Vital Signs Height 5 ft 7 in Weight: 319 lb 10.724 oz Weight in Pounds 319.7 lbs Pulse Ox 94 Temperature 99.3 F Pulse Rate 80 Respiratory Rate 20 Blood Pressure 112/58 Blood Pressure Position Semi-Fowlers [] General: Alert, Oriented x3, Cooperative, - - super morbid obesity HEENT: Atraumatic, PERRLA, EOMI, Normocephalic Oral: Moist Mucosa Neck: Supple, No JVD, Negative Carotid Bruits Lungs: Clear to auscultation, Normal air movement, No rhonchi, No wheeze, No rales Cardiovascular: Regular rate, Regular Rhythm, Normal S1, Normal S2, No murmurs Abdomen: Bowel Sounds Present, Soft, Non Tender, Non-Distended, No Hepato-splenomegaly Extremities: No clubbing, No cyanosis, No edema, Capillary Refill Less than 3 Seconds Skin: No rashes, stage 2 sacral decubitus ulcer Musculoskeletal: No Tenderness to Palpation of Joints or Extremities Lymphatic: No Cervical, Supraclavicular, or Inguinal Adenopathy Neurological: Cranial nerves II-XII grossly intact, Neuro grossly intact, Motor Exam 5/5 strength throughout Psych/Mental Status: Normal Affect, Appropriate, Alert and oriented to time, place, person, mood and affect Patient Problems: Active and Suspected Problems (Last Reviewed 08/18/19 @ 08:00 by Kyree Dutta MD) Severe sepsis (Acute) UTI (urinary tract infection) due to urinary indwelling catheter (Acute) Severe sepsis (Acute) - Physical Exam Vital Signs Temp Pulse Resp BP Pulse Ox 99.3 F H 80 20 H 112/58 L 94 08/20/19 08:05 08/20/19 08:09 08/20/19 08:05 08/20/19 08:05 08/20/19 08:05 Oxygen Flow Rate (L/min) 2 Oxygen Delivery Method Room Air Weight: 319 lb 10.724 oz Body Mass Index (BMI) 50.1 Intake and Output for Last 24 Hours 08/18/19 08/19/19 08/20/19 23:59 23:59 23:59 Intake Total 2446 / 3146 1613.75 / 1733.75 200.25 / 200.25 Output Total 2800 / 4200 4150 / 5050 2350 / 2350 Balance -354 / -1054 -2536.25 / -3316.25 -2149.75 / -2149.75 Microbiology Past 72 Hours 08/17/19 20:10 Blood Culture - Preliminary Blood Culture (Wb) - Right Hand No growth in 48 hours. 08/17/19 19:20 Blood Culture - Preliminary Blood Culture (Wb) - Left Hand No growth in 48 hours. 08/17/19 21:02 Urine Culture - Preliminary Urine Catheter - Catheter Escherichia coli Gram negative odin GPC Poss Enterococcus sp Gram negative odin#2 Laboratory Tests Past 24 Hrs 08/20/19 08/20/19 05:47 05:47 WBC 5.9 RBC 3.23 L Hgb 8.8 L Hct 29.2 L MCV 90.4 MCH 27.2 MCHC 30.1 L RDW Std Deviation 55.6 H RDW Coeff of Jessi 16.6 H Plt Count 287 MPV 9.6 Immature Gran % (Auto) 0.300 Neut % (Auto) 68.3 Lymph % (Auto) 19.7 Pender % (Auto) 6.1 Eos % (Auto) 5.1 H Baso % (Auto) 0.5 Absolute Neuts (auto) 4.0 Absolute Lymphs (auto) 1.16 Nucleated RBC % 0 Sodium 134 L Potassium 3.8 Chloride 104 Carbon Dioxide 26.0 Anion Gap 4 L BUN 17 Creatinine 1.23 H Estim Creat Clear Calc 40.20 Est GFR (MDRD) Af Amer 55 L Est GFR (MDRD) Non-Af 46 L BUN/Creatinine Ratio 13.8 Glucose 117 H Calcium 9.2 POC Glucose 08/20/19 08/19/19 08/19/19 06:19 22:18 16:32 POC Glucose 113 H 107 97 08/19/19 11:23 POC Glucose 130 H Discharge Diet: Low fat/ Low Cholesterol Discharge Activity: Return to Normal Activity Weight Bearing Status: Weight bearing as tolerated Call your doctor if you observe: Fever of 101 or Higher, Inability to urinate, - - buring and difficulty with urination Home Medications: Medications to take at Discharge Furosemide [Lasix] 20 mg PO BID 09/30/13 Albuterol Inhaler [Ventolin Hfa] 2 puff INHALATION Q4H PRN PRN 10/30/18 Baclofen 10 mg PO TID 10/30/18 Gabapentin [Neurontin] 600 mg PO BID 10/30/18 Lisinopril [Zestril] 10 mg PO DAILY 10/30/18 Multivitamins,Ther W-Minerals [Multivitamin With Minerals] 1 tablet PO TID 10/30/18 Nystatin Powder [Mycostatin Powder] 1 applicatio TOPICAL BID PRN PRN 10/30/18 Oxybutynin Chloride [Ditropan Xl] 15 mg PO DAILY 10/30/18 Vitamin E 1,000 iu PO DAILY 10/30/18 levETIRAcetam tablet [Keppra tablet] 500 mg PO QHS 10/30/18 metFORMIN HCl [Glucophage] 500 mg PO BID 10/30/18 Cyanocobalamin (Vitamin B-12) [B-12] 1,000 mcg PO DAILY 12/17/18 Pravastatin [Pravachol] 20 mg PO QHS 12/17/18 Duloxetine HCl 60 mg PO QHS 03/22/19 Methenamine Hippurate [Hiprex] 1 gm PO BID 04/05/19 Fluconazole 200 mg PO TU 07/02/19 Fluticasone Propionate 2 spry INHALATION DAILY PRN 07/02/19 Hydrocodone Bitart/Apap 5-325 [[place] 5/325] 1 tab PO Q6H PRN PRN 07/02/19 Venlafaxine XR [Effexor Xr] 150 mg PO BID 07/02/19 Ascorbic Acid [Vitamin C] 500 mg PO BID 08/18/19 Diltiazem CD [Cardizem CD] 120 mg PO DAILY 08/18/19 DiphenhydrAMINE [Benadryl] 20 mg PO BID PRN PRN 08/18/19 Pantoprazole Sodium [Protonix] 40 mg PO DAILY 08/18/19 Potassium Chloride [K-Dur] 10 meq PO DAILYCM 08/18/19 Cefdinir [Omnicef [equiv]] 300 mg PO Q12H #10 cap 08/20/19 Following Prescrptions Were Given to Patient: Cefdinir [Omnicef [equiv]] 300 mg PO Q12H #10 cap Transmission Status: Received by [facility]/pharmacy #[id number] Primary Care Physician: Noy Chakraborty MD [Primary Care Provider] - Please follow up with your Primary Care Physician in: one week Please Follow Up With: Rebecca Zavala MD When: 1-2 weeks Patient Instructions: Understanding Urinary Tract Infections (UTIs) Disposition: Home Minutes spent on discharge:: 35 Patient Condition:: Stable Medical Necessity - Tobacco Use Smoking Status: Never smoker Meaningful Use Info Meaningful Use Diagnoses (Choose all that apply): None applicable Code Visit Inpatient E&M: 43610 Disch Hosp
[2019-08-20 11:00] LABS: Bedside Glucose 134 mg/dL (70-110)
--- NOTE | 2019-08-20 11:30 | CASEMGMT ---
TONI MARTINES in to discuss discharge needs with patient. Patient denies need for HHC or DME at discharge. Patient states she has follow-up with PCP later next week and has appointment with new chemical laboratory chief at the end of the month. TONI MARTINES instructed patient that should she reconsider HHC she can follow-up with PCP. Patient voiced understanding and has live in 24 hour caregiver.
--- NOTE | 2019-08-21 15:42 | CASEMGMT ---
Case Management DC F/u Call: DC Date: 08/20/19 DC Diagnosis: Severe sepsis (Acute), UTI (urinary tract infection) due to urinary indwelling catheter (Acute), Severe sepsis (Acute) DC Disposition: Home with 24hr Caregiver Lace/Strata: 25/02 This designer/writer called patient on listed number in demographics. Answered and introduced self and role. Patient states that she has been doing good, has been taking her ABX. States that she has been seeing the PA Deandre Rudolph in the [place] for her catheter change every month Dr Chand's office and plans on cancelling her appointment with Dr Zavala but will consider starting up with her. States she is also going to cancel appointment with pcp Dr Chakraborty as she already has an appointment with his PRESIDENT & CEO on 08/30/19. States [facility]. Denies any other questions/concerns/or issues with [facility], F/u or medications at this time. Thanked patient for receiving care at [facility] [place] and ended conversation. Latha Perkins RNCM
== END 2019-08-20 14:45 | disposition home or self-care (01) | DRG 698 ==
LOC: ED 19:51 → MS3 23:40
PROVIDERS: Family Medicine; Admitting Provider Hospitalist; Emergency Provider Emergency Medicine; Family Provider Internal Medicine; PCP Internal Medicine; Visit Provider Student in an Organized Health Care Education/Training Program
DX: T83.518A Infection and inflammatory reaction due to other urinary catheter, initial encounter (principal); R65.20 Severe sepsis without septic shock; A41.9 Sepsis, unspecified organism; E87.1 Hypo-osmolality and hyponatremia; Z68.43 Body mass index [BMI] 50.0-59.9, adult; N30.90 Cystitis, unspecified without hematuria; Y84.6 Urinary catheterization as the cause of abnormal reaction of the patient, or of later complication, without mention of misadventure at the time of the procedure; L89.152 Pressure ulcer of sacral region, stage 2; G40.909 Epilepsy, unspecified, not intractable, without status epilepticus; B96.20 Unspecified Escherichia coli [E. coli] as the cause of diseases classified elsewhere; E78.5 Hyperlipidemia, unspecified; F41.9 Anxiety disorder, unspecified; G47.33 Obstructive sleep apnea (adult) (pediatric); B37.2 Candidiasis of skin and nail; F32.9 Major depressive disorder, single episode, unspecified; E66.01 Morbid (severe) obesity due to excess calories; Z93.59 Other cystostomy status; I12.9 Hypertensive chronic kidney disease with stage 1 through stage 4 chronic kidney disease, or unspecified chronic kidney disease; N18.2 Chronic kidney disease, stage 2 (mild); E11.22 Type 2 diabetes mellitus with diabetic chronic kidney disease; Z87.440 Personal history of urinary (tract) infections; Z79.84 Long term (current) use of oral hypoglycemic drugs
CPT/HCPCS: 36415; 71045; 80048; 80053; 81001; 82962; 83605; 85025; 85610; 85730; 87040; 87077; 87086; 87088; 87186; 93005; 94762; 97161; 97165; 97802; 99285; J7030; J7040; J7050; A4216; J2405

== ENCOUNTER 2019-08-23 09:17 | Outpatient (RCR) | payer MEDICARE, OTHER, SELFPAY ==
[2019-08-13 00:44] VITALS: BP 104/48; PULSE 77; RESP 18; TEMP 36.4
[2019-08-23 14:01] VITALS: BP 101/43; PULSE 77; RESP 18; TEMP 36.6; BMI 50.1
--- NOTE | 2019-08-23 19:33 | PCM.WC.PN ---
(1) Ulcer of left groin with fat layer exposed Status: Chronic Current Visit: Yes Code(s): L98.492 - Non-pressure chronic ulcer of skin of other sites with fat layer exposed (2) Pressure ulcer of coccygeal region, stage 3 Status: Chronic Current Visit: Yes Code(s): L89.153 - Pressure ulcer of sacral region, stage 3 (3) Morbid obesity Status: Chronic Current Visit: Yes Code(s): E66.01 - Morbid (severe) obesity due to excess calories (4) Candidal intertrigo Status: Chronic Current Visit: Yes Code(s): B37.2 - Candidiasis of skin and nail Type of Wound Date of Service: 08/23/19 Chief Complaint: ulcers of left groin and abdomen, pressure ulcer of coccyx History of Wound: Samra is a 73 yo woman who presents to the wound center for ulcers of left groin and abdomen referred by wound nurse at [facility]. She was recently hospitalized at [facility] for urosepsis. She was on IV antibiotics of Meropenem and Vancomycin. She is morbidly obese and has problems with candidal intertrigo and has ulcers that open frequently for several years. She was using towels to keep moisture from accumulating under her skin folds but this has been ineffective. She started using InstaDry sheets since discharge from the hospital which has improved the moisture in her folds. She has been using nystatin powder as well. She has been using bacitracin to the ulcer of her abdomen. She has an indwelling suprapubic catheter that is changed monthly. She has heavy drainage from her ulcers. She is wheelchair bound and has an aid that helps her daily for a few hours per day. She denies fever or chills. In May 2019, she reports that she has a chronic ulcer of her coccyx area that was previously surgically debrided that comes and goes and has gotten worse since she was in the group home in early 2018. Progress of Wound: Samra is here for follow up of ulcers of her left groin. She is tolerating Fibracol dressings to left groin and continues to use Interdry strips to her groin area to wick away moisture. She has had improvement in erythema. She has moderate to heavy drainage from the ulcers of her left groin. She is tolerating fibracol to her coccyx ulcer and has moderate to heavy drainage from this ulcer. Her mid-abdomen ulcer remains healed. She denies fever or chills or erythema or increased drainage from previous. She was hospitalized last week for urosepsis but is doing well. - Physical Exam Vital Signs Temp Pulse Resp BP 97.8 F 77 18 101/43 L 08/23/19 14:01 08/23/19 14:01 08/23/19 14:01 08/23/19 14:01 General: Alert, Oriented x3, Cooperative, No apparent distress HEENT: Atraumatic, Normocephalic Oral: Moist Mucosa Abdomen: Soft, Non-Distended, Obese Extremities: Edema Skin: Ulcer/ Wound Wound Measurements and Assessment WC - Nurse 1 - General Ulcer Measurement Start: 08/23/19 14:01 Freq: Status: Active Protocol: Activity Type Activity Date Activity User E-Sign Co-Sign Detail Recorded Client Recorded Date Recorded By Document 08/23/19 14:01 [facility] [id number] 08/23/19 14:15 [facility] 08/23/19 14:01 Wound Center Nurse 1 [Ulcer Assessment] #3 Coccyx -Combined with other wound No -Current Size (cm) - Length 0.9 -Current Size (cm) - Width 1.2 -Current Size (cm) - Depth 0.3 -Total Square Cm 1.08 -Photo Taken No -Epithelialization None Present -Tunneling No -Undermining/Tunneling No -Circular Undermining No -Exudate Amt None Present -Wound Margin Thickened -Granulation Amt Large (67-100%) -Granulation Quality Red -Slough/Fibrin Yes -Necrosis Amt Small (1-33%) -Necrotic Tissue Type Adherent Slough -Texture (Jessica-wound Skin Appearance) Assessed, Scarring -Moisture (Jessica-wound Skin Appearance Assessed ) -Color (Jessica-wound Skin Appearance) Assessed -Temperature (Jessica-wound Skin No Abnormality Appearance) (Pt Warm) -Tenderness on Palpation (Jessica-wound No Skin Appearance) -Ulcer Cleansing Rinsed/ Irrigated with Saline -Foul Odor after Cleansing No -Anesthetic Used 5% Lidocaine Gel #1 left abd fold cluster -Combined with other wound No -Current Size (cm) - Length 8.5 -Current Size (cm) - Width 18 -Current Size (cm) - Depth 0.1 -Total Square Cm 153.0 -Photo Taken No -Epithelialization Small 1-33% -Tunneling No -Undermining/Tunneling No -Circular Undermining No -Exudate Amt Medium -Exudate Type Serous -Wound Margin Distinct, Outline Attached -Granulation Amt Large (67-100%) -Granulation Quality Red -Slough/Fibrin Yes -Necrosis Amt Small (1-33%) -Necrotic Tissue Type Adherent Slough -Texture (Jessica-wound Skin Appearance) Assessed, Scarring -Moisture (Jessica-wound Skin Appearance Assessed ) -Color (Jessica-wound Skin Appearance) Assessed -Temperature (Jessica-wound Skin No Abnormality Appearance) (Pt Warm) -Tenderness on Palpation (Jessica-wound No Skin Appearance) -Ulcer Cleansing Rinsed/ Irrigated with Saline -Foul Odor after Cleansing No -Anesthetic Used 5% Lidocaine Gel WC - Nurse 2 - General Ulcer CM Notes Start: 08/23/19 14:01 Freq: Status: Active Protocol: Activity Type Activity Date Activity User E-Sign Co-Sign Detail Recorded Client Recorded Date Recorded By Document 08/23/19 14:59 MW [id number] 08/23/19 15:13 MW 08/23/19 14:59 Wound Center Nurse 2 [Procedure/Treatment] #3 Coccyx -Time 14:59 -Correct Patient Yes -Correct Side, Site, Position Yes -Correct Procedure Yes -Procedure Performed Yes -Type of Procedure Debridement -Clinical Debridement Subcutaneous -Post Debridement Size (cm) - Length 1.0 -Post Debridement Size (cm) - Width 1.3 -Post Debridement Size (cm) - Depth 0.3 -Total Square Cm 1.30 -Wound/Ulcer Outcome Not Healed -Ulcer Cleansing Rinsed/ Irrigated with Saline -Foul Odor after Cleansing No -Bioengineered Tissue No -Bleeding Controlled with Pressure -Offloading No -Treatment Response Procedure Tolerated Well #1 left abd fold cluster -Time 14:59 -Correct Patient Yes -Correct Side, Site, Position Yes -Correct Procedure Yes -Procedure Performed No -Post Debridement Size (cm) - Length 6.0 -Post Debridement Size (cm) - Width 5.0 -Post Debridement Size (cm) - Depth 0.1 -Total Square Cm 30.00 -Wound/Ulcer Outcome Not Healed -Ulcer Cleansing Rinsed/ Irrigated with Saline -Foul Odor after Cleansing No -Bioengineered Tissue No -Bleeding Controlled with Pressure -Offloading No -Treatment Response Procedure Tolerated Well [See Physician Procedure note for Specifics] Pain Scale: 0-10 Numeric [Pain] -Is Patient Pain Free? Yes Psych/Mental Status: Normal Affect, Appropriate Debridement Note Post-Debridement Measurements/Treatment WC - Nurse 2 - General Ulcer CM Notes Start: 08/23/19 14:01 Freq: Status: Active Protocol: Activity Type Activity Date Activity User E-Sign Co-Sign Detail Recorded Client Recorded Date Recorded By Document 08/23/19 14:59 MW [id number] 08/23/19 15:13 MW 08/23/19 14:59 Wound Center Nurse 2 #3 Coccyx -Time 14:59 -Correct Patient Yes -Correct Side, Site, Position Yes -Correct Procedure Yes -Procedure Performed Yes -Type of Procedure Debridement -Clinical Debridement Subcutaneous -Post Debridement Size (cm) - Length 1.0 -Post Debridement Size (cm) - Width 1.3 -Post Debridement Size (cm) - Depth 0.3 -Total Square Cm 1.30 -Wound/Ulcer Outcome Not Healed -Ulcer Cleansing Rinsed/ Irrigated with Saline -Foul Odor after Cleansing No -Bioengineered Tissue No -Bleeding Controlled with Pressure -Offloading No -Treatment Response Procedure Tolerated Well #1 left abd fold cluster -Time 14:59 -Correct Patient Yes -Correct Side, Site, Position Yes -Correct Procedure Yes -Procedure Performed No -Post Debridement Size (cm) - Length 6.0 -Post Debridement Size (cm) - Width 5.0 -Post Debridement Size (cm) - Depth 0.1 -Total Square Cm 30.00 -Wound/Ulcer Outcome Not Healed -Ulcer Cleansing Rinsed/ Irrigated with Saline -Foul Odor after Cleansing No -Bioengineered Tissue No -Bleeding Controlled with Pressure -Offloading No -Treatment Response Procedure Tolerated Well Pain Scale: 0-10 Numeric Is Patient Pain Free? Yes Wound debrided: coccyx Laterality: Not Applicable Wound Grade/Stage: Stage III Type of Debridement: Excisional debridement Anesthesia Used: 4% Lidocaine Solution, 5% Lidocaine Gel Depth: Down to and including healthy tissue, in the subcutaneous layer Percentage of wound debrided: 100 Instrument Used: 7mm curette Tissue Removed: yellow slough, devitalized tissue Severity: Fat Layer Exposed Amount of bleeding with debridement: Mild Bleeding Controlled with: Compression and gauze Patient tolerated procedure well - Additional Wound Wound debrided: left abdominal fold cluster Laterality: Left Type of Debridement: Excisional debridement Anesthesia Used: 4% Lidocaine Solution Depth: Down to and including healthy tissue, in the subcutaneous layer Instrument Used: - - gauze Tissue Removed: yellow slough Severity: Fat Layer Exposed Amount of bleeding with debridement: Mild Bleeding Controlled with: Compression and gauze Assessment/Plan Active Problems (Last Reviewed 08/18/19 @ 08:00 by Kyree Dutta MD) Ulcer of left groin with fat layer exposed (Chronic) Pressure ulcer of coccygeal region, stage 3 (Chronic) Morbid obesity (Chronic) Candidal intertrigo (Chronic) Assessment: ulcers of left groin. morbid obesity. Candidal intertrigo Plan: Samra's ulcers were evaluated today. Her left groin cluster is much improved. Will have her continue to use Fibracol to the ulcers of her left lower abdomen and coccyx and interdry sache to her abdominal fold area to absorb moisture and prevent ulcers from developing due to the heavy drainage. Diflucan will be continued once weekly to treat candidal intertrigo. Will have her take this weekly to every other week due to sweating and heat and her body habitus and chronic yeast which are causing her to develop ulcers. Encouraged her to increase protein intake and offload the areas of her ulcers. Advised to call with any fever, chills, increased drainage. F/u in 3 weeks.
== END 2019-09-12 23:59 ==
LOC: WC 09:17
PROVIDERS: Family Provider Internal Medicine; PCP Internal Medicine; Visit Provider Family Medicine
DX: L89.153 Pressure ulcer of sacral region, stage 3 (principal); E66.01 Morbid (severe) obesity due to excess calories; Z71.3 Dietary counseling and surveillance; B37.2 Candidiasis of skin and nail; L98.492 Non-pressure chronic ulcer of skin of other sites with fat layer exposed
CPT/HCPCS: 11042

== ENCOUNTER 2019-09-27 13:00 | Outpatient (RCR) | payer MEDICARE, OTHER, SELFPAY ==
[2019-09-13 00:44] VITALS: BP 101/43; PULSE 77; RESP 18; TEMP 36.6
[2019-09-13 13:05] VITALS: BP 142/64; PULSE 89; RESP 22; TEMP 36.1; BMI 50.1
--- NOTE | 2019-09-13 20:13 | PN.PCM_ITS ---
(1) Ulcer of left groin with fat layer exposed Status: Chronic Current Visit: Yes Code(s): L98.492 - Non-pressure chronic ulcer of skin of other sites with fat layer exposed (2) Pressure ulcer of coccygeal region, stage 3 Status: Chronic Current Visit: Yes Code(s): L89.153 - Pressure ulcer of sacral region, stage 3 (3) Morbid obesity Status: Chronic Current Visit: Yes Code(s): E66.01 - Morbid (severe) obesity due to excess calories Type of Wound Date of Service: 09/13/19 Chief Complaint: ulcers of left groin and abdomen, pressure ulcer of coccyx History of Wound: Samra is a 73 yo woman who presents to the wound center for ulcers of left groin and abdomen referred by wound nurse at [facility]. She was recently hospitalized at [facility] for urosepsis. She was on IV antibiotics of Meropenem and Vancomycin. She is morbidly obese and has problems with candidal intertrigo and has ulcers that open frequently for several years. She was using towels to keep moisture from accumulating under her skin folds but this has been ineffective. She started using InstaDry sheets since discharge from the hospital which has improved the moisture in her folds. She has been using nystatin powder as well. She has been using bacitracin to the ulcer of her abdomen. She has an indwelling suprapubic catheter that is changed monthly. She has heavy drainage from her ulcers. She is wheelchair bound and has an aid that helps her daily for a few hours per day. She denies fever or chills. In May 2019, she reports that she has a chronic ulcer of her coccyx area that was previously surgically debrided that comes and goes and has gotten worse since she was in the senior living in early 2018. Progress of Wound: Samra is here for follow up of ulcers of her left groin and coccyx. She is tolerating Fibracol dressings to left groin and continues to use Interdry strips to her groin area to wick away moisture. She has had improvement in erythema. She has moderate to heavy drainage from the ulcers of her left g roin. She is tolerating fibracol to her coccyx ulcer and has moderate to heavy drainage from this ulcer. Her mid-abdomen ulcer remains healed. She denies fever or chills or erythema or increased drainage from previous. - Physical Exam Vital Signs Temp Pulse Resp BP 96.9 F L 89 22 H 142/64 H 09/13/19 13:05 09/13/19 13:05 09/13/19 13:05 09/13/19 13:05 General: Alert, Oriented x3, Cooperative, No apparent distress HEENT: Atraumatic, Normocephalic Oral: Moist Mucosa Abdomen: Obese Extremities: Edema Skin: Ulcer/ Wound Wound Measurements and Assessment WC - Nurse 1 - General Ulcer Measurement Start: 09/13/19 13:05 Freq: Status: Active Protocol: Activity Type Activity Date Activity User E-Sign Co-Sign Detail Recorded Client Recorded Date Recorded By Document 09/13/19 13:05 DL [id number] 09/13/19 13:19 DL 09/13/19 13:05 Wound Center Nurse 1 [Ulcer Assessment] #3 Coccyx -Current Size (cm) - Length 0.8 -Current Size (cm) - Width 0.8 -Current Size (cm) - Depth 0.3 -Total Square Cm 0.64 -Photo Taken No -Exudate Amt Small -Exudate Type Serosanguineous -Wound Margin Thickened -Granulation Amt Medium (34-66%) -Granulation Quality Pale,[place] -Slough/Fibrin No -Necrosis Amt Medium (34-66%) -Necrotic Tissue Type Adherent Slough -Structure Exposed N/A -Texture (Jessica-wound Skin Appearance) Scarring -Moisture (Jessica-wound Skin Appearance Maceration, ) Weeping -Color (Jessica-wound Skin Appearance) No Abnormality -Temperature (Jessica-wound Skin No Abnormality Appearance) (Pt Warm) -Tenderness on Palpation (Jessica-wound No Skin Appearance) -Ulcer Cleansing Wound Cleanser -Foul Odor after Cleansing No -Anesthetic Used 4% Lidocaine Solution #1 left abd fold cluster -Current Size (cm) - Length 1 -Current Size (cm) - Width 2.7 -Current Size (cm) - Depth 0.1 -Total Square Cm 2.7 -Photo Taken No -Exudate Amt Small -Exudate Type Serosanguineous -Wound Margin Distinct, Outline Attached -Granulation Amt Large (67-100%) -Granulation Quality [place],Red -Necrosis Amt None Present (0 %) -Structure Exposed N/A -Texture (Jessica-wound Skin Appearance) Excoriation, Scarring -Moisture (Jessica-wound Skin Appearance Weeping ) -Color (Jessica-wound Skin Appearance) Erythema -Temperature (Jessica-wound Skin No Abnormality Appearance) (Pt Warm) -Tenderness on Palpation (Jessica-wound No Skin Appearance) -Ulcer Cleansing Wound Cleanser -Foul Odor after Cleansing No -Anesthetic Used 4% Lidocaine Solution WC - Nurse 2 - General Ulcer CM Notes Start: 09/13/19 13:05 Freq: Status: Active Protocol: Activity Type Activity Date Activity User E-Sign Co-Sign Detail Recorded Client Recorded Date Recorded By Document 09/13/19 13:46 [id number] 09/13/19 13:58 09/13/19 13:46 Wound Center Nurse 2 [Procedure/Treatment] #3 Coccyx -Time 13:50 -Correct Patient Yes -Correct Side, Site, Position Yes -Correct Procedure Yes -Procedure Performed Yes -Type of Procedure Debridement -Clinical Debridement Subcutaneous -Post Debridement Size (cm) - Length 0.7 -Post Debridement Size (cm) - Width 1.5 -Post Debridement Size (cm) - Depth 0.3 -Total Square Cm 1.05 -Wound/Ulcer Outcome Not Healed -Ulcer Cleansing Not Cleansed -Foul Odor after Cleansing No -Bioengineered Tissue No -Bleeding Controlled with Pressure -Offloading Yes -Treatment Response Procedure Tolerated Well #1 left abd fold cluster -Correct Patient Yes -Correct Side, Site, Position Yes -Correct Procedure No -Procedure Performed No -Post Debridement Size (cm) - Length 3 -Post Debridement Size (cm) - Width 1 -Post Debridement Size (cm) - Depth 0.1 -Total Square Cm 3 -Wound/Ulcer Outcome Not Healed -Ulcer Cleansing Not Cleansed -Foul Odor after Cleansing No -Bioengineered Tissue No -Bleeding Controlled with NA [See Physician Procedure note for Specifics] Psych/Mental Status: Normal Affect, Appropriate Debridement Note Post-Debridement Measurements/Treatment WC - Nurse 2 - General Ulcer CM Notes Start: 09/13/19 13:05 Freq: Status: Active Protocol: Activity Type Activity Date Activity User E-Sign Co-Sign Detail Recorded Client Recorded Date Recorded By Document 09/13/19 13:46 [id number] 09/13/19 13:58 09/13/19 13:46 Wound Center Nurse 2 #3 Coccyx -Time 13:50 -Correct Patient Yes -Correct Side, Site, Position Yes -Correct Procedure Yes -Procedure Performed Yes -Type of Procedure Debridement -Clinical Debridement Subcutaneous -Post Debridement Size (cm) - Length 0.7 -Post Debridement Size (cm) - Width 1.5 -Post Debridement Size (cm) - Depth 0.3 -Total Square Cm 1.05 -Wound/Ulcer Outcome Not Healed -Ulcer Cleansing Not Cleansed -Foul Odor after Cleansing No -Bioengineered Tissue No -Bleeding Controlled with Pressure -Offloading Yes -Treatment Response Procedure Tolerated Well #1 left abd fold cluster -Correct Patient Yes -Correct Side, Site, Position Yes -Correct Procedure No -Procedure Performed No -Post Debridement Size (cm) - Length 3 -Post Debridement Size (cm) - Width 1 -Post Debridement Size (cm) - Depth 0.1 -Total Square Cm 3 -Wound/Ulcer Outcome Not Healed -Ulcer Cleansing Not Cleansed -Foul Odor after Cleansing No -Bioengineered Tissue No -Bleeding Controlled with NA Wound debrided: coccyx Laterality: Not Applicable Wound Grade/Stage: Stage 3 Type of Debridement: Excisional debridement Anesthesia Used: 4% Lidocaine Solution Depth: Down to and including healthy tissue, in the subcutaneous layer Percentage of wound debrided: 100 Instrument Used: 5mm curette Tissue Removed: yellow slough, devitalized tissue Severity: Fat Layer Exposed Amount of bleeding with debridement: Mild Bleeding Controlled with: Compression and gauze Patient tolerated procedure well - Additional Wound Wound debrided: left groin Laterality: Left Type of Debridement: Excisional debridement Anesthesia Used: 4% Lidocaine Solution Depth: Down to and including healthy tissue, in the subcutaneous layer Percentage of wound debrided: 100 Instrument Used: 5mm curette Tissue Removed: yellow slough, devitalized tissue Severity: Fat Layer Exposed Amount of bleeding with debridement: Mild Bleeding Controlled with: Compression and gauze Patient tolerated procedure: Patient tolerated procedure well Assessment/Plan Active Problems (Last Reviewed 08/18/19 @ 08:00 by Kyree Dutta MD) Ulcer of left groin with fat layer exposed (Chronic) Pressure ulcer of coccygeal region, stage 3 (Chronic) Morbid obesity (Chronic) Assessment: ulcers of left groin. morbid obesity. Candidal intertrigo Plan: Pat's ulcers were evaluated today. Her left groin cluster is much improved. Will have her continue to use Fibracol to the ulcers of her left lower abdomen and coccyx and interdry sache to her abdominal fold area to absorb moisture and prevent ulcers from developing due to the heavy drainage. Diflucan will be continued once weekly to treat candidal intertrigo. Will have her take this weekly to every other week due to sweating and heat and her body habitus and chronic yeast which are causing her to develop ulcers. Encouraged her to increase protein intake and offload the areas of her ulcers. Advised to call with any fever, chills, increased drainage. F/u in 2 weeks.
[2019-09-27 13:17] VITALS: BP 131/68; PULSE 87; RESP 20; TEMP 36.3; BMI 50.1
--- NOTE | 2019-09-27 19:33 | PN.PCM_ITS ---
(1) Ulcer of left groin with fat layer exposed Status: Chronic Current Visit: Yes Code(s): L98.492 - Non-pressure chronic ulcer of skin of other sites with fat layer exposed (2) Pressure ulcer of coccygeal region, stage 3 Status: Chronic Current Visit: Yes Code(s): L89.153 - Pressure ulcer of sacral region, stage 3 (3) Morbid obesity Status: Chronic Current Visit: Yes Code(s): E66.01 - Morbid (severe) obesity due to excess calories Type of Wound Date of Service: 09/27/19 Chief Complaint: ulcers of left groin and abdomen, pressure ulcer of coccyx History of Wound: Samra is a 73 yo woman who presents to the wound center for ulcers of left groin and abdomen referred by wound nurse at [facility]. She was recently hospitalized at [facility] for urosepsis. She was on IV antibiotics of Meropenem and Vancomycin. She is morbidly obese and has problems with candidal intertrigo and has ulcers that open frequently for several years. She was using towels to keep moisture from accumulating under her skin folds but this has been ineffective. She started using InstaDry sheets since discharge from the hospital which has improved the moisture in her folds. She has been using nystatin powder as well. She has been using bacitracin to the ulcer of her abdomen. She has an indwelling suprapubic catheter that is changed monthly. She has heavy drainage from her ulcers. She is wheelchair bound and has an aid that helps her daily for a few hours per day. She denies fever or chills. In May 2019, she reports that she has a chronic ulcer of her coccyx area that was previously surgically debrided that comes and goes and has gotten worse since she was in the intermediate in early 2018. Progress of Wound: Samra is here for follow up of ulcers of her left groin and coccyx. She is tolerating Fibracol dressings to left groin and continues to use Interdry strips to her groin area to wick away moisture. She has had improvement in erythema. She has moderate to heavy drainage from the ulcers of her left g roin. She is tolerating fibracol to her coccyx ulcer and has moderate to heavy drainage from this ulcer. Her mid-abdomen ulcer remains healed. She denies fever or chills or erythema or increased drainage from previous. - Physical Exam Vital Signs Temp Pulse Resp BP 97.4 F L 87 20 H 131/68 H 09/27/19 13:17 09/27/19 13:17 09/27/19 13:17 09/27/19 13:17 General: Alert, Oriented x3, Cooperative, No apparent distress HEENT: Atraumatic, Normocephalic Oral: Moist Mucosa Abdomen: Obese Extremities: Edema Skin: Ulcer/ Wound Wound Measurements and Assessment WC - Nurse 1 - General Ulcer Measurement Start: 09/13/19 13:05 Freq: Status: Active Protocol: Activity Type Activity Date Activity User E-Sign Co-Sign Detail Recorded Client Recorded Date Recorded By Document 09/27/19 13:17 DL [id number] 09/27/19 13:30 DL 09/27/19 13:17 Wound Center Nurse 1 [Ulcer Assessment] #3 Coccyx -Current Size (cm) - Length 0.5 -Current Size (cm) - Width 1.5 -Current Size (cm) - Depth 0.4 -Total Square Cm 0.75 -Photo Taken No -Exudate Amt Small -Exudate Type Serosanguineous -Wound Margin Thickened & Rolled Under -Granulation Amt Large (67-100%) -Granulation Quality [place] -Necrosis Amt Small (1-33%) -Necrotic Tissue Type Adherent Slough -Structure Exposed N/A -Texture (Jessica-wound Skin Appearance) Scarring -Moisture (Jessica-wound Skin Appearance No Abnormality ) -Color (Jessica-wound Skin Appearance) No Abnormality -Temperature (Jessica-wound Skin No Abnormality Appearance) (Pt Warm) -Tenderness on Palpation (Jessica-wound No Skin Appearance) -Ulcer Cleansing Wound Cleanser -Foul Odor after Cleansing No -Anesthetic Used 4% Lidocaine Solution #1 left abd fold cluster -Current Size (cm) - Length 0.5 -Current Size (cm) - Width 1.1 -Current Size (cm) - Depth 0.1 -Total Square Cm 0.55 -Photo Taken No -Exudate Amt None Present -Wound Margin Flat & Intact -Granulation Amt Small (1-33%) -Granulation Quality Pale,[place] -Necrosis Amt None Present (0 %) -Structure Exposed N/A -Texture (Jessica-wound Skin Appearance) Excoriation, Scarring -Moisture (Jessica-wound Skin Appearance No Abnormality ) -Color (Jessica-wound Skin Appearance) Erythema -Temperature (Jessica-wound Skin No Abnormality Appearance) (Pt Warm) -Tenderness on Palpation (Jessica-wound No Skin Appearance) -Ulcer Cleansing Wound Cleanser -Foul Odor after Cleansing No -Anesthetic Used 4% Lidocaine Solution WC - Nurse 2 - General Ulcer CM Notes Start: 09/13/19 13:05 Freq: Status: Active Protocol: Activity Type Activity Date Activity User E-Sign Co-Sign Detail Recorded Client Recorded Date Recorded By Document 09/27/19 14:00 DV [id number] 09/27/19 14:14 DV 09/27/19 14:00 Wound Center Nurse 2 [Procedure/Treatment] #3 Coccyx -Time 14:01 -Correct Patient Yes -Correct Side, Site, Position Yes -Correct Procedure Yes -Procedure Performed Yes -Type of Procedure Debridement -Clinical Debridement Subcutaneous -Post Debridement Size (cm) - Length 0.4 -Post Debridement Size (cm) - Width 1.5 -Post Debridement Size (cm) - Depth 0.2 -Total Square Cm 0.60 -Wound/Ulcer Outcome Not Healed -Ulcer Cleansing Rinsed/ Irrigated with Saline -Foul Odor after Cleansing No -Bioengineered Tissue No -Bleeding Controlled with Pressure -Offloading No -Treatment Response Procedure Tolerated Well #1 left abd fold cluster -Time 14:01 -Correct Patient Yes -Correct Side, Site, Position Yes -Correct Procedure No -Procedure Performed No -Post Debridement Size (cm) - Length 0.5 -Post Debridement Size (cm) - Width 2.3 -Post Debridement Size (cm) - Depth 0.1 -Total Square Cm 1.15 -Wound/Ulcer Outcome Not Healed [See Physician Procedure note for Specifics] Pain Scale: 0-10 Numeric [Pain] -Is Patient Pain Free? Yes Psych/Mental Status: Normal Affect, Appropriate Debridement Note Post-Debridement Measurements/Treatment WC - Nurse 2 - General Ulcer CM Notes Start: 09/13/19 13:05 Freq: Status: Active Protocol: Activity Type Activity Date Activity User E-Sign Co-Sign Detail Recorded Client Recorded Date Recorded By Document 09/13/19 13:46 [id number] 09/13/19 13:58 MD Document 09/27/19 14:00 DV [id number] 09/27/19 14:14 DV 09/13/19 09/27/19 13:46 14:00 Wound Center Nurse 2 #3 Coccyx -Time 13:50 14:01 -Correct Patient Yes Yes -Correct Side, Site, Position Yes Yes -Correct Procedure Yes Yes -Procedure Performed Yes Yes -Type of Procedure Debridement Debridement -Clinical Debridement Subcutaneous Subcutaneous -Post Debridement Size (cm) - Length 0.7 0.4 -Post Debridement Size (cm) - Width 1.5 1.5 -Post Debridement Size (cm) - Depth 0.3 0.2 -Total Square Cm 1.05 0.60 -Wound/Ulcer Outcome Not Healed Not Healed -Ulcer Cleansing Not Cleansed Rinsed/ Irrigated with Saline -Foul Odor after Cleansing No No -Bioengineered Tissue No No -Bleeding Controlled with Pressure Pressure -Offloading Yes No -Treatment Response Procedure Procedure Tolerated Well Tolerated Well #1 left abd fold cluster -Time 14:01 -Correct Patient Yes Yes -Correct Side, Site, Position Yes Yes -Correct Procedure No No -Procedure Performed No No -Post Debridement Size (cm) - Length 3 0.5 -Post Debridement Size (cm) - Width 1 2.3 -Post Debridement Size (cm) - Depth 0.1 0.1 -Total Square Cm 3 1.15 -Wound/Ulcer Outcome Not Healed Not Healed -Ulcer Cleansing Not Cleansed -Foul Odor after Cleansing No -Bioengineered Tissue No -Bleeding Controlled with NA Pain Scale: 0-10 Numeric Is Patient Pain Free? Yes Wound debrided: coccyx Laterality: Not Applicable Wound Grade/Stage: Stage 3 Type of Debridement: Excisional debridement Anesthesia Used: 4% Lidocaine Solution, 5% Lidocaine Gel Depth: Down to and including healthy tissue, in the subcutaneous layer Percentage of wound debrided: 100 Instrument Used: 3mm curette Tissue Removed: yellow slough, devitalized tissue Severity: Fat Layer Exposed Amount of bleeding with debridement: Mild Bleeding Controlled with: Compression and gauze Patient tolerated procedure well - Additional Wound Wound debrided: left lower abdomen/groin fold cluster Laterality: Left Type of Debridement: Excisional debridement Anesthesia Used: 4% Lidocaine Solution Depth: Down to and including healthy tissue, in the subcutaneous layer Percentage of wound debrided: 100 Instrument Used: - - gauze Severity: Fat Layer Exposed Amount of bleeding with debridement: Mild Bleeding Controlled with: Compression and gauze Patient tolerated procedure: Patient tolerated procedure well Assessment/Plan Active Problems (Last Reviewed 08/18/19 @ 08:00 by Kyree Dutta MD) Ulcer of left groin with fat layer exposed (Chronic) Pressure ulcer of coccygeal region, stage 3 (Chronic) Morbid obesity (Chronic) Assessment: ulcers of left groin. morbid obesity. Candidal intertrigo Plan: Pat's ulcers were evaluated today. Her left groin cluster is much improved. Will have her continue to use Fibracol to the ulcers of her left lower abdomen and coccyx and interdry sache to her abdominal fold area to absorb moisture and prevent ulcers from developing due to the heavy drainage. Diflucan will be continued once weekly to treat candidal intertrigo. Will have her take this weekly to every other week due to sweating and heat and her body habitus and chronic yeast which are causing her to develop ulcers. Encouraged her to increase protein intake and offload the areas of her ulcers. Advised to call with any fever, chills, increased drainage. F/u in 2 weeks.
== END 2019-10-12 23:59 ==
LOC: WC 13:00
PROVIDERS: Family Provider Internal Medicine; PCP Internal Medicine; Visit Provider Family Medicine
DX: L89.153 Pressure ulcer of sacral region, stage 3 (principal); E66.01 Morbid (severe) obesity due to excess calories; Z71.3 Dietary counseling and surveillance; L98.492 Non-pressure chronic ulcer of skin of other sites with fat layer exposed; B37.2 Candidiasis of skin and nail; Z99.3 Dependence on wheelchair
CPT/HCPCS: 11042

== ENCOUNTER 2019-10-19 14:13 | Inpatient (IN) | payer MEDICARE, OTHER, SELFPAY ==
[2019-10-19] VITALS (10 sets, daily range): BP systolic 82–139; BP diastolic 48–61; PULSE 79–97; RESP 13–19; TEMP -8.8–37.7; O2SAT 93–98; BMI 51.0; BMI 49.1
--- NOTE | 2019-10-19 14:34 | EKG12_ITS ---
Test Reason : DYSRHYTHMIA Blood Pressure : / mmHG Vent. Rate : 085 BPM Atrial Rate : 085 BPM P-R Int : 154 ms QRS Dur : 076 ms QT Int : 376 ms P-R-T Axes : 000 039 020 degrees QTc Int : 447 ms Sinus rhythm with Premature supraventricular complexes Low voltage QRS Borderline ECG Confirmed by WNIDY THOMPSON, ROLAND ([id number]), editor & co founder JAMI TOLENTINO ([id number]) on 10/20/2019 12:03:44 PM Referred By: Vickie Muse Confirmed By:RICK TEMPLE MD
[2019-10-19] MEDS: 0.9% Normal Saline 1,000 ML 150 ML IV ×2 (15:13→22:19)
[2019-10-19 15:24] LABS: Absolute Lymphocyte Count 1.47 X10^3/uL (0.83-4.51); Absolute Neutrophil Count 7.5 X10^3/uL (2.0-7.7); Basophil# 0.04 X10^3/uL; Basophil% 0.4 % (0-1); Eosinophil# 0.26 X10^3/uL; Eosinophils% 2.5 % (0-5); Hematocrit 30.8 % (37-47); Hemoglobin 9.6 g/dL (12.0-15.0); Lymphocyte # 1.47 X10^3/ul (4.0); Lymphocyte % 14.2 % (19-41); Mean Corp Hgb Conc 31.2 g/dL (32-36); Mean Corpuscular Volume 86.5 fL (81-99); Mean Platelet Vol. 9.7 fl (6.2-12.0); Monocyte# 1.01 X10^3/uL; Monocyte% 9.7 % (0-10); NRBC Flagged by Analyzer 0 % (0-5); Neutrophil # 7.48 X10^3/uL (2.7-7.7); Neutrophil % 72.2 % (47-70); Platelet Count 305 K/mm3 (150-450); RBC Distribution Width SD 53.8 fl (35.1-43.9); Red Blood Count 3.56 M/mm3 (4.2-5.4); White Blood Count 10.4 K/mm3 (4.4-11.0)
[2019-10-19 15:37] LABS: Anion Gap 7 (5-15); BUN 23 mg/dL (7-18); BUN/Creat Ratio 15.5 RATIO (10-20); Calcium,Total 8.9 mg/dL (8.5-10.1); Chloride 101 mmol/L (98-107); Creatinine, Serum 1.48 mg/dL (0.55-1.02); EST Glomerular Filtration Rate 37 mL/min (>60); Est Glom Filt Rate - Afr Amer 45 mL/min (>60); Estimated Creatinine Clearance 31.69 ml/min; Glucose 89 mg/dL (74-106); Potassium 3.9 mmol/L (3.5-5.1); Sodium Level 133 mmol/L (136-145)
[2019-10-19 15:39] LABS: Lactic Acid 2.1 mmol/L (0.4-1.9)
--- NOTE | 2019-10-19 15:44 | HP.PCM_ITS ---
History of Present Illness Date of Admission: 10/19/19 Chief Complaint: LLE pain and swelling The patient is a 74 year old F with an extensive past medical history as listed. She was admitted through the ED on 10/19/2019 with a complaint of left lower extremity pain and swelling as well as redness for 1 day. Patient states she has been having some mild lethargy and weakness over the past couple of days which she attributed to intestinal flu. She thinks she may have had some fever and chills as well. This morning she woke up and says she felt like her left lower extremity was very painful though she really could not see whether it was red or not. Her home care manager rn came in and told her that her leg was very red though it was not markedly swollen relative to her right leg. She denies any trauma to her left lower extremity. She also does not member if she had any insect bite to the left lower extremity. On arrival in the ED, vitals were significant for blood pressure of 86/51 which subsequently trended up to 104/59 with IV fluid hydration. Temperature was 100 ?F and pulse rate was 94. Respiratory rate was within normal limits. She was saturating at 98% on room air. Chemistry was significant for sodium of 133 and creatinine of 1.48 and lactic acid of 2.1. CBC showed white cell count of 10.4 and hemoglobin of 9.6 with platelets of 305. She has been admitted to be managed for cellulitis of the left lower extremity. Of note, patient was admitted to PCU on account of hypotension when she came in as well as lactic acidosis. [] Past Medical History Past Medical History (Chronic Problems): Chronic Problems (Last Reviewed 08/18/19 @ 08:00 by Kyree Dutta MD) Ulcer of abdomen wall with fat layer exposed (Chronic) Ulcer of left groin with fat layer exposed (Chronic) Pressure ulcer of coccygeal region, stage 3 (Chronic) Morbid obesity (Chronic) Anxiety and depression (Chronic) HTN (hypertension) (Chronic) HLD (hyperlipidemia) (Chronic) Cellulitis of left abdominal wall (Chronic) Debility (Chronic) Depression (Chronic) VITA (obstructive sleep apnea) (Chronic) Candidal intertrigo (Chronic) Medical History: Medical History (Last Reviewed 08/18/19 @ 08:00 by Kyree Dutta MD) DM2 (diabetes mellitus, type 2) E11.9 Debility R53.81 VITA (obstructive sleep apnea) G47.33 HTN (hypertension) I10 Allergies adhesive tape Allergy (Verified 10/19/19 14:24) blisters Influenza Virus Vaccines Allergy (Verified 10/19/19 14:24) shortness of breath/severe wheezing iron Allergy (Verified 10/19/19 14:24) from IV form chest pressure and heart palpitations Sulfa (Sulfonamide Antibiotics) Allergy (Verified 10/19/19 14:24) Shortness of breath bactrim does not work for her-per pcp paperwork meloxicam [From [employer]] Adverse Reaction (Verified 10/19/19 14:24) gi upset seasonal allergies Allergy (Uncoded 10/19/19 14:24) Other Home Medications: Ambulatory Orders Medication Instructions Recorded Furosemide [Lasix] 20 mg PO TID 09/30/13 Albuterol Inhaler [Ventolin Hfa] 2 puff INHALATION Q4H PRN PRN 10/30/18 Baclofen 10 mg PO TID 10/30/18 Gabapentin [Neurontin] 600 mg PO BID 10/30/18 Lisinopril [Zestril] 10 mg PO DAILY 10/30/18 Multivitamins,Ther W-Minerals 1 tablet PO TID 10/30/18 [Multivitamin With Minerals] Nystatin Powder [Mycostatin Powder] 1 applicatio TOPICAL BID PRN PRN 10/30/18 Oxybutynin Chloride [Ditropan Xl] 15 mg PO DAILY 10/30/18 Vitamin E 1,000 iu PO DAILY 10/30/18 levETIRAcetam tablet [Keppra 500 mg PO QHS 10/30/18 tablet] metFORMIN HCl [Glucophage] 500 mg PO BID 10/30/18 Cyanocobalamin (Vitamin B-12) 1,000 mcg PO DAILY 12/17/18 [B-12] Pravastatin [Pravachol] 20 mg PO QHS 12/17/18 Duloxetine HCl 60 mg PO QHS 03/22/19 Methenamine Hippurate [Hiprex] 1 gm PO BID 04/05/19 Fluconazole 200 mg PO SA 07/02/19 Fluticasone Propionate 2 spry INHALATION DAILY PRN 07/02/19 Hydrocodone Bitart/Apap 5-325 1 tab PO Q6H PRN PRN 07/02/19 [Anchor 5/325] Venlafaxine XR [Effexor Xr] 150 mg PO BID 07/02/19 Ascorbic Acid [Vitamin C] 500 mg PO BID 08/18/19 Diltiazem CD [Cardizem CD] 120 mg PO DAILY 08/18/19 DiphenhydrAMINE [Benadryl] 20 mg PO BID PRN PRN 08/18/19 Pantoprazole Sodium [Protonix] 40 mg PO DAILY 08/18/19 Potassium Chloride [K-Dur] 10 meq PO DAILYCM 08/18/19 Ranitidine [Zantac] 150 mg PO BID 10/19/19 Surgical History: cholecystectomy, hysterectomy, - - Suprapubic catheter placement. Psychiatric History: Anxiety, Bipolar, Depression ADMIN PROG COORD History: No pertinent ADMIN PROG COORD history Smoking Status: Former smoker Alcohol: None Drugs: None - *Family History Maternal History Items: Diabetes, Heart Disease - Her father had a CABG and CHF Paternal History Items: Heart Disease Review of Systems Constitutional: Reports: Chills, Fever, Malaise, Weakness, Fatigue. Denies: Weight Change Eyes: Denies: Blurred vision HEENT: Denies: Head Aches, Sinus Congestion, Sinus Drainage Cardiovascular: Denies: Chest Pain, Palpitations Respiratory: Denies: Cough, Shortness of Breath, Shortness of breath at rest, Shortness of breath upon exertion, Sputum production Gastrointestinal: Denies: Abdominal Pain, Nausea, Vomiting Genitourinary: Denies: Dysuria Musculoskeletal: Denies: Joint Pain, Joint Tenderness Skin: Denies: Rash, Wounds Neurological: Denies: Numbness, Tingling, Focal weakness Psychiatric: Denies: Anxiety, Depression, Homicidal Ideations, Suicidal Ideations Hematologic/ Lymphatic: Denies: Easy Bruising, Easy Bleeding VTE Information - Inpt Only VTE Present on Admission: No VTE Pharm Prophylaxis ordered?: Yes - Physical Exam Vitals/I&O's: Vital Signs Temp Pulse Resp BP Pulse Ox 100 F H 85 13 121/60 H 94 10/19/19 14:14 10/19/19 14:50 10/19/19 14:50 10/19/19 14:50 10/19/19 14:50 Oxygen Delivery Method Room Air Weight: 316 lb 9.341 oz Body Mass Index (BMI) 51.0 General: Alert, Oriented x3, Cooperative, No apparent distress, - - super morbid obesity HEENT: Atraumatic, PERRLA, EOMI, Normocephalic Oral: Moist Mucosa Neck: Supple, No JVD, Negative Carotid Bruits Lungs: Clear to auscultation, Normal air movement, No rhonchi, No wheeze, No rales Cardiovascular: Regular rate, Regular Rhythm, Normal S1, Normal S2, No murmurs Abdomen: Bowel Sounds Present, Soft, Non Tender, Non-Distended, No Hepato- splenomegaly Extremities: No clubbing, No cyanosis, No edema, Capillary Refill Less than 3 Seconds Skin: No rashes, No breakdown Musculoskeletal: No Tenderness to Palpation of Joints or Extremities Lymphatic: No Cervical, Supraclavicular, or Inguinal Adenopathy Neurological: Cranial nerves II-XII grossly intact, Neuro grossly intact, Motor Exam 5/5 strength throughout Psych/Mental Status: Normal Affect, Appropriate, Alert and oriented to time, place, person, mood and affect Laboratory Results 10/19/19 14:50: WBC 10.4, RBC 3.56 L, Hgb 9.6 L, Hct 30.8 L, MCV 86.5, MCH 27.0, MCHC 31.2 L, RDW Std Deviation 53.8 H, RDW Coeff of Jessi 17.0 H, Plt Count 305, MPV 9.7, Immature Gran % (Auto) 1.000 H, Neut % (Auto) 72.2 H, Lymph % (Auto) 14.2 L, [place] % (Auto) 9.7, Eos % (Auto) 2.5, Baso % (Auto) 0.4, Absolute Neuts (auto) 7.5, Absolute Lymphs (auto) 1.47, Nucleated RBC % 0 10/19/19 14:50: Sodium 133 L, Potassium 3.9, Chloride 101, Carbon Dioxide 25.0, Anion Gap 7, BUN 23 H, Creatinine 1.48 H, Estim Creat Clear Calc 31.69, Est GFR (MDRD) Af Amer 45 L, Est GFR (MDRD) Non-Af 37 L, BUN/Creatinine Ratio 15.5, Glucose 89, Calcium 8.9 10/19/19 14:50: Lactic Acid 2.1 H* Current Medications Sodium Chloride () 1,000 mls @ 150 mls/hr IV .Q6H40M [facility] Last Admin: 10/19/19 15:13 Dose: 150 mls/hr Documented by: Assessment/Plan All Active Problems (Last Reviewed 08/18/19 @ 08:00 by Kyree Dutta MD) Severe sepsis (Acute) UTI (urinary tract infection) due to urinary indwelling catheter (Acute) Severe sepsis (Acute) UTI (urinary tract infection) (Acute) MICHAELLE (acute kidney injury) (Acute) Suprapubic catheter dysfunction (Resolved) 77 y/o admitted with a complaint of left lower redness and swelling. 1. Left lower extremity cellulitis * admit to PCU with telemetry * BP was 87/74 on admission, but trended up with administration of IVF * lactic acid is 2.1, however, there is no leucocytosis * started on IV unasyn in the ED; will continue * hydrate with IVF NS ~ 150cc/hr * blood cultures * redness on LLE outlined to monitor resolution or worsening of redness * 2. LActic acidosis: lactic acid is 2.1; this is likely due to hypotension. WIll repeat. Continue hydrating with IVF NS ~ 150cc/hr 3. Anemia: chronic. Hb is 9.6. Baseline Hb is ~ 9-10. WIll monitor/ 4. CKD 3: Cr is 1.48; baseline is ~ 1.3. WIll monitor 5. Diabetes mellitus: last A1C was 6.3 (11/12/18). will repeat A1C. hold metformin o/a of lactic acidosis. ISS> Accuchecks ACHS 6. Heart failure with preserved ejection fraction: 7. Depression: On Effexor and Cymbalta 8. Hyperlipidemia: On statin. 9. History of recurrent UTI with chronic indwelling Henry catheter: * Catheter was changed about a month ago and is due to be changed this coming by her home nurse. * Will monitor. * 10. GERD: Stable. 11. Seizure disorder: Keppra 12. Hypertension: On Cardizem and lisinopril. Will hold these as she was hypo tensive when she came in. Also on Lasix which I will hold for now. 13. History of VITA: Says she used to be on CPAP but now does not really use it. On 2 L of oxygen at night. DVT prophylaxis: lovenox Code Visit Inpatient E&M: 42282 Init Hosp L3
--- NOTE | 2019-10-19 15:45 | NURSING ---
PCU KORAM CELLULITIS, HYPOTENSION. ELEVATED LACTIC ACID
--- NOTE | 2019-10-19 15:52 | ED.VISSUMM ---
- ER Visit Summary Date of Service: 10/19/19 Chief Complaint: [Redness and swelling to left leg] History of Present Illness: The patient is a 74 F [presents to the emergency department with redness and swelling to the left leg that started this morning. Patient had a low-grade fever. She denies any chest pain or shortness of breath. Patient has had a history of cellulitis in the past. Patient had a viral gastroenteritis type illness recently. Patient has history of diabetes, hypertension, A. fib, and history of cellulitis. Physical Examination: [HEENT-PERRLA, EOMI. Cranial nerves II through XII grossly intact. TMs clear. Mucous membranes moist. No adenopathy. Cardiovascular-regular rate and rhythm without murmur or ectopy Lungs-clear to auscultation, chest wall stable without crepitus or subcu emphysema Abdomen-normoactive bowel sounds, soft, nontender, no rebound or rigidity, no peritoneal signs. Patient is morbidly obese. Extremities-intact ?4, normal range of motion, normal pulses, atraumatic. Patient has erythema noted of the left calf up to the posterior thigh. There is some induration in the skin. Area is warm to the touch. She has normal pulses. She is neurovascular intact distally.] Test Results: [CBC with differential obtained showed a white count 10.4, hemoglobin 9.6, hematocrit 31, placed 305. Lactate was 2.1. EKG obtained arrival shows sinus rhythm with a ventricular rate of 85 bpm with occasional PACs.] Emergency Department Course and Treatment: [Patient was started Unasyn 3 g IV.] Treatment Plan: [Admit] Disposition: [Admit] Impression: [Cellulitis left leg] This note was generated with [employer] dictation software. It may contain incorrect words, spelling, and punctuation that were not noted in review of the chart prior to signing ED Disposition - Plan for ED Patient: Referrals: Colby Valenzuela DO [Primary Care Provider] -
[2019-10-19 17:56] LABS: Hemoglobin A1c 4.8 % (4.2-6.3)
[2019-10-19] MEDS: Fluconazole 100 MG Tablet 200 MG PO (18:37)
[2019-10-19] MEDS: Glucerna Shake 120 ML LIQUID PO ×2 (18:37→22:13)
[2019-10-19 19:15] LABS: Reflex Lactate? Y
[2019-10-19 20:27] LABS: Lactic Acid 1.1 mmol/L (0.4-1.9)
[2019-10-19] MEDS: Gabapentin 600 MG Tablet PO (22:08)
[2019-10-19] MEDS: Venlafaxine XR 150 MG Capsule PO (22:08)
[2019-10-19] MEDS: Ascorbic Acid 500 MG Tablet PO (22:08)
[2019-10-19] MEDS: DiphenhydrAMINE 25 MG Capsule PO (22:08)
[2019-10-19] MEDS: Pravastatin 20 MG Tablet PO (22:08)
[2019-10-19] MEDS: Baclofen 10 MG Tablet PO (22:08)
[2019-10-19] MEDS: levETIRAcetam 500 MG Tablet PO (22:08)
[2019-10-19] MEDS: Methenamine Hippurate 1 GM Tablet PO (22:08)
[2019-10-19] MEDS: Heparin Injection (Vial) 5,000 UNIT/ML VIAL 5000 UNIT SC (22:14)
[2019-10-19] MEDS: DULoxetine Hcl 60 MG Capsule PO (22:19)
[2019-10-19 22:31] LABS: Bedside Glucose 129 mg/dL (70-110)
[2019-10-20] VITALS (10 sets, daily range): BP systolic 99–135; BP diastolic 56–69; PULSE 77–95; RESP 18; TEMP 36.6–37.1; O2SAT 93–98
[2019-10-20] MEDS: Heparin Injection (Vial) 5,000 UNIT/ML VIAL 5000 UNIT SC ×3 (05:32→23:29)
[2019-10-20] MEDS: Baclofen 10 MG Tablet PO ×3 (05:32→23:26)
[2019-10-20] MEDS: 0.9% Normal Saline 1,000 ML 150 ML IV ×3 (05:35→19:43)
[2019-10-20 06:55] LABS: Bedside Glucose 128 mg/dL (70-110)
[2019-10-20 07:09] LABS: Absolute Lymphocyte Count 1.06 X10^3/uL (0.83-4.51); Absolute Neutrophil Count 5.6 X10^3/uL (2.0-7.7); Basophil# 0.03 X10^3/uL; Basophil% 0.4 % (0-1); Eosinophil# 0.28 X10^3/uL; Eosinophils% 3.6 % (0-5); Hematocrit 28.3 % (37-47); Hemoglobin 8.9 g/dL (12.0-15.0); Lymphocyte # 1.06 X10^3/ul (4.0); Lymphocyte % 13.6 % (19-41); Mean Corp Hgb Conc 31.4 g/dL (32-36); Mean Corpuscular Hgb 27.1 pg (27.0-32.0); Mean Corpuscular Volume 86.3 fL (81-99); Mean Platelet Vol. 9.6 fl (6.2-12.0); Monocyte# 0.76 X10^3/uL; Monocyte% 9.8 % (0-10); NRBC Flagged by Analyzer 0 % (0-5); Neutrophil # 5.58 X10^3/uL (2.7-7.7); Neutrophil % 71.6 % (47-70); Platelet Count 245 K/mm3 (150-450); RBC Distribution Width CV 16.9 % (11.6-14.6); RBC Distribution Width SD 53.6 fl (35.1-43.9); Red Blood Count 3.28 M/mm3 (4.2-5.4); White Blood Count 7.8 K/mm3 (4.4-11.0)
[2019-10-20 07:27] LABS: Anion Gap 7 (5-15); BUN 20 mg/dL (7-18); BUN/Creat Ratio 17.5 RATIO (10-20); Calcium,Total 8.5 mg/dL (8.5-10.1); Chloride 104 mmol/L (98-107); Creatinine, Serum 1.14 mg/dL (0.55-1.02); EST Glomerular Filtration Rate 50 mL/min (>60); Est Glom Filt Rate - Afr Amer 60 mL/min (>60); Estimated Creatinine Clearance 42.74 ml/min; Glucose 117 mg/dL (74-106); Potassium 3.5 mmol/L (3.5-5.1); Sodium Level 137 mmol/L (136-145)
--- NOTE | 2019-10-20 10:17 | PN_ITS ---
Subjective: The patient is a 74 y/o F w/ PMHx: HTN, HLD, Morbid Obesity, Seizure disorder, GERD, VITA on CPAP q HS, Anxiety and Depression, Possible PAF noted per patient prior who presents to the [facility] ED on 10/19/19 with history of ongoing left lower extremity pain, edema and erythema x24 hours with mild lethargy and weakness over the last several days which she attributes to recent intestinal flu although improved. Upon ED presentation febrile, hypotensive, mild increased respiratory rate, although no marked WBC elevation, LA elevated. Admitted to the PCU, continue IV Unasyn especially given improvement with improved blood pressures, continue affected extremity elevation above heart when seated and in bed, monitor erythema outline with VS checks, patient morbidly obese habitus complicates presentation. Patient with notable telemetry findings with 16 beat run of VT's recently, holding patient Cardizem, not on beta-roopa therapy given #1 presentation with hypotension, maintain on telemetry, magnesium requested, given underlying history high risk requested cardiology assessment additionally. Patient overnight with improvement of left lower extremity edema, pain and erythema, noted receding redness from the outline previously placed upon presentation. Patient did have episode of significantly lengthened 16 beat VT. Patient notes she is less fatigued than initial presentation. Patient denies fevers, chills, nausea, emesis, abdominal pain, chest pain or dyspnea. Objective: Physical Examination: General: awake, alert, oriented x 3 and cooperative, seated upright in bed, acute distress, notes feeling improved since initial presentation. Skin: normal color, turgor, no icterus, cyanosis, or improve left lower extremity erythema, receding redness from the prior outline that was made which includes the distal and upper portion of the lower left extremity up into the medial thigh region, batch still operator to palpation, still warm to touch, no areas of marketed induration.. HEENT: AT/NC, EOMI, PERRLA, MMM. Lungs: Diminished breath sounds bilaterally, greater bases, moderate effort, no rales, ronchi or wheezing. Heart: Currently, regular rate and rhythm; no gallop, rub audible. Abdomen: soft, morbidly obese, NTTP, ND, normal BS. Extremities: no cyanosis, clubbing, bilateral lower extremity chronic venous stasis skin changes and nonpitting pedal edema, left lower extremity with skin changes as noted above. Neurological: patient awake, alert, oriented x 3; cognitive function intact; pupils equally reactive to light and accomodation; cranial nerves II-XII grossly normal, moving all 4 extremities, no focal deficits, strength improving, moderately global decrease secondary to acute presentation. Psychiatric: affect appears fatigued, improved she notes from prior, no acute evidence of depressive or anxiety feelings. Vitals/I&O's: Vital Signs Temp Pulse Resp BP Pulse Ox 98.4 F 94 18 101/56 L 93 10/20/19 09:35 10/20/19 09:35 10/20/19 09:35 10/20/19 09:35 10/20/19 09:35 Oxygen Delivery Method Room Air Weight: 313 lb 7.957 oz Body Mass Index (BMI) 49.1 Intake and Output for Last 24 Hours 10/18/19 10/19/19 10/20/19 23:59 23:59 23:59 Intake Total 1919.0 / 1919.0 1291.5 / 1291.5 Output Total 2550 / 2550 375 / 375 Balance -631.0 / -631.0 916.5 / 916.5 Laboratory Results 10/19/19 14:50: WBC 10.4, RBC 3.56 L, Hgb 9.6 L, Hct 30.8 L, MCV 86.5, MCH 27.0, MCHC 31.2 L, RDW Std Deviation 53.8 H, RDW Coeff of Jessi 17.0 H, Plt Count 305, MPV 9.7, Immature Gran % (Auto) 1.000 H, Neut % (Auto) 72.2 H, Lymph % (Auto) 14.2 L, [place] % (Auto) 9.7, Eos % (Auto) 2.5, Baso % (Auto) 0.4, Absolute Neuts (auto) 7.5, Absolute Lymphs (auto) 1.47, Nucleated RBC % 0 10/19/19 14:50: Sodium 133 L, Potassium 3.9, Chloride 101, Carbon Dioxide 25.0, Anion Gap 7, BUN 23 H, Creatinine 1.48 H, Estim Creat Clear Calc 31.69, Est GFR (MDRD) Af Amer 45 L, Est GFR (MDRD) Non-Af 37 L, BUN/Creatinine Ratio 15.5, Glucose 89, Calcium 8.9 10/19/19 14:50: Lactic Acid 2.1 H* 10/19/19 17:00: Hemoglobin A1c 4.8 10/19/19 19:53: Lactic Acid 1.1 10/19/19 22:03: POC Glucose 129 H 10/20/19 06:29: POC Glucose 128 H 10/20/19 06:30: WBC 7.8, RBC 3.28 L, Hgb 8.9 L, Hct 28.3 L, MCV 86.3, MCH 27.1, MCHC 31.4 L, RDW Std Deviation 53.6 H, RDW Coeff of Jessi 16.9 H, Plt Count 245, MPV 9.6, Immature Gran % (Auto) 1.000 H, Neut % (Auto) 71.6 H, Lymph % (Auto) 13.6 L, [place] % (Auto) 9.8, Eos % (Auto) 3.6, Baso % (Auto) 0.4, Absolute Neuts (auto) 5.6, Absolute Lymphs (auto) 1.06, Nucleated RBC % 0 10/20/19 06:30: Sodium 137, Potassium 3.5, Chloride 104, Carbon Dioxide 26.0, Anion Gap 7, BUN 20 H, Creatinine 1.14 H, Estim Creat Clear Calc 42.74, Est GFR (MDRD) Af Amer 60, Est GFR (MDRD) Non-Af 50 L, BUN/Creatinine Ratio 17.5, Glucose 117 H, Calcium 8.5 10/20/19 06:30: Magnesium 2.0 Current Medications Hydrocodone Bitart/Acetaminophen ([place] 5mg-325mg) 1 tablet PO Q6H PRN PRN PRN Reason: Pain Score 1-10/10 Albuterol Sulfate (Ventolin Aerosols) 2.5 mg INHALATION Q4H PRN PRN PRN Reason: SOB &/OR WHEEZING Ascorbic Acid (Vitamin C) 500 mg PO BID [facility] Last Admin: 10/19/19 22:08 Dose: 500 mg Documented by: Baclofen (Lioresal) 10 mg PO TID [facility] Last Admin: 10/20/19 05:32 Dose: 10 mg Documented by: Cholecalciferol (Vitamin D) 1,000 unit PO DAILY [facility] Cyanocobalamin (Vitamin B12) 1,000 mcg PO DAILY [facility] Dextrose (D50w Syringe) 0 gm IV X1 PRN; Protocol PRN Reason: Hypoglycemia Diphenhydramine HCl (Benadryl) 25 mg PO BID PRN PRN PRN Reason: ALLERGIES Last Admin: 10/19/19 22:08 Dose: 25 mg Documented by: Duloxetine HCl (Cymbalta) 60 mg PO QHS [facility] Last Admin: 10/19/19 22:19 Dose: 60 mg Documented by: Famotidine (Pepcid) 20 mg PO DAILY [facility] Fluconazole (Diflucan) 200 mg PO Sa@1000 [facility] Last Admin: 10/19/19 18:37 Dose: 200 mg Documented by: Fluticasone Propionate (Flonase Nasal [place]) 2 spray NASAL DAILY PRN PRN Reason: ALLERGIES Gabapentin (Neurontin) 600 mg PO BID [facility] Last Admin: 10/19/19 22:08 Dose: 600 mg Documented by: Glucagon () 1 mg IM .X1 PRN PRN Reason: Hypoglycemia Heparin Sodium (Porcine) (Heparin Na) 5,000 unit SC Q8 [facility] Last Admin: 10/20/19 05:32 Dose: 5,000 unit Documented by: Sodium Chloride () 1,000 mls @ 150 mls/hr IV .Q6H40M [facility] Last Infusion: 10/20/19 06:31 Dose: 150 mls/hr Documented by: Ampicillin Sodium/Sulbactam (Sodium 3 gm/ Sodium Chloride) 112 mls @ 150 mls/hr IV Q6 [facility] Last Infusion: 10/20/19 06:26 Dose: Infused Documented by: Sodium Chloride () 250 mls @ 15 mls/hr IV .[id number] PRN PRN Reason: Saline Flush Last Infusion: 10/19/19 18:52 Dose: 0 mls/hr Documented by: Insulin Human Lispro (Humalog Kwikpen (Bkc)) 0 unit SC ACHS [facility]; Protocol Last Admin: 10/20/19 06:29 Dose: Not Given Documented by: Lactobacillus Acidophilus (Acidophilus) 1 tablet PO DAILY [facility] Levetiracetam (Keppra Tablet) 500 mg PO QHS [facility] Last Admin: 10/19/19 22:08 Dose: 500 mg Documented by: Methenamine Hippurate (Hiprex) 1 gm PO BID [facility] Last Admin: 10/19/19 22:08 Dose: 1 gm Documented by: Multivitamins/Minerals (Multivitamin With Minerals) [facility] Multivitamins/Minerals (Healthy Eyes) 1 capsule PO DAILY [facility] Nutritional Formula (Lactose Free) (Glucerna Shake) 120 ml PO 4X/DAY [facility] Last Admin: 10/19/19 22:13 Dose: 120 ml Documented by: Nystatin (Mycostatin Powder) 1 applic TOPICAL BID PRN PRN; Protocol PRN Reason: yeast infection to fold areas Pantoprazole Sodium (Protonix) 40 mg PO DAILY [facility] Potassium Chloride (K-Dur) 10 meq PO DAILYCM [facility] Pravastatin Sodium (Pravachol) 20 mg PO QHS [facility] Last Admin: 10/19/19 22:08 Dose: 20 mg Documented by: Sodium Chloride () 10 - 40 ml IV UD PRN PRN Reason: SALINE FLUSH Tolterodine Tartrate (Detrol La) 4 mg PO DAILY [facility] Venlafaxine HCl (Effexor Xr) 150 mg PO BID [facility] Last Admin: 10/19/19 22:08 Dose: 150 mg Documented by: STROKE Vital Signs/Narrative: Vital Signs Temp Pulse Resp BP Pulse Ox 10/20/19 09:35 98.4 F 94 18 101/56 L 93 10/20/19 06:45 92 Medical Necessity - Tobacco Use Smoking Status: Former smoker Assessment/Plan All Active Problems (Last Reviewed 08/18/19 @ 08:00 by Kyree Dutta MD) Severe sepsis (Acute) UTI (urinary tract infection) due to urinary indwelling catheter (Acute) Severe sepsis (Acute) UTI (urinary tract infection) (Acute) MICHAELLE (acute kidney injury) (Acute) Suprapubic catheter dysfunction (Resolved) The patient is a 74 y/o F w/ PMHx: HTN, HLD, Morbid Obesity, Seizure disorder, GERD, VITA on CPAP q HS, Anxiety and Depression, Possible PAF noted per patient prior who presents to the [facility] ED on 10/19/19 with history of ongoing left lower extremity pain, edema and erythema x24 hours with mild lethargy and weakness over the last several days which she attributes to recent intestinal flu although improved. 1. Severe sepsis secondary to Acute Lower Extremity Cellulitis: Upon ED presentation febrile, hypotensive, mild increased respiratory rate, although no marked WBC elevation. Admitted to the PCU, continue IV Unasyn especially given improvement with improved blood pressures, continue affected extremity elevation above heart when seated and in bed, monitor erythema outline with VS checks, patient morbidly obese habitus complicates presentation. 2. Nonsustained VT: Patient with notable telemetry findings with 16 beat run of VT's recently, holding patient Cardizem, not on beta-roopa therapy given #1 presentation with hypotension, maintain on telemetry, magnesium requested, given underlying history high risk requested cardiology assessment additionally. 3. PAF: Given hypotension holding patient Cardizem but may need to resume given recent history, not anticoagulated. 4. Hypertension: Given severe septic presentation with hypotension, now improving but very low normal blood pressures holding patient home Cardizem, Lasix, lisinopril regimen with resumption once clinically appropriate, PRN hydralazine. 5. Hyperlipidemia: Continue home statin regimen. 6. Diabetes mellitus type II: Hold oral home regimen, ADA diet, accu checks w/ ISS. 7. Morbid Obesity: Weight loss and lifestyle changes encouraged, nutrition consulted. 8. Seizure disorder: We will continue home Keppra regimen, notably low dosage. 9. Anxiety and depression: We will continue patient home Effexor regimen. 10. Intertrigo: We will continue patient home nystatin regimen as well as chronic Diflucan once weekly therapy, 11. GERD: Continue home PPI. 12. VITA: Continue home CPAP regimen. 13. DVT prophylaxis: SCDs, Lovenox. 14. CODE status: Patient has healthcare power of energy attorney set up, needs living will clarified with recommendation to discuss with case management to solidify, healthcare power of energy attorney is her Sister Fabiana Ribeiro. Discussed CODE status at length including difference between FULL code, DNR-CCA and DNR-CC status. Following discussions about the differences in these status, requested Full Code status. Advanced Care Planning Face to Face Time: 16 minutes. Code Visit Inpatient E&M: 11808 Subs Hosp L3
[2019-10-20] MEDS: Tolterodine Tartrate 4 MG CAP.SA PO (10:18)
[2019-10-20] MEDS: Multivitamin (Healthy Eyes) Capsule 1 CAP PO (10:18)
[2019-10-20] MEDS: Glucerna Shake 120 ML LIQUID PO ×2 (10:18→23:26)
[2019-10-20] MEDS: Venlafaxine XR 150 MG Capsule PO ×2 (10:18→23:26)
[2019-10-20] MEDS: Pantoprazole Sodium 40 MG Tablet PO (10:19)
[2019-10-20] MEDS: Ascorbic Acid 500 MG Tablet PO ×2 (10:19→23:26)
[2019-10-20] MEDS: Famotidine 20 MG Tablet PO (10:19)
[2019-10-20] MEDS: Cyanocobalamin 500 MCG Tablet 1000 MCG PO (10:19)
[2019-10-20] MEDS: Gabapentin 600 MG Tablet PO ×2 (10:19→23:26)
[2019-10-20] MEDS: Methenamine Hippurate 1 GM Tablet PO ×2 (10:19→23:26)
[2019-10-20 11:36] LABS: Bedside Glucose 98 mg/dL (70-110)
--- NOTE | 2019-10-20 15:09 | CON.PCM_ITS ---
Problem List (1) V tach Status: Acute Reason for Consult Date of Consultation: 10/20/19 History of Present Illness: The patient is a 74 year old F with an extensive past medical history as listed. She was admitted through the ED on 10/19/2019 with a complaint of left lower extremity pain and swelling as well as redness for 1 day. Patient states she has been having some mild lethargy and weakness over the past couple of days which she attributed to intestinal flu. She thinks she may have had some fever and chills as well. This morning she woke up and says she felt like her left lower extremity was very painful though she really could not see whether it was red or not. Her sales and in home delivery specialist came in and told her that her leg was very red though it was not markedly swollen relative to her right leg. She denies any trauma to her left lower extremity. She also does not member if she had any insect bite to the left lower extremity. Telemetry revealed 116 beat run of nonsustained V. tach and cardiology consult was requested. Review of systems: All systems reviewed. All others negative except that in the HPI. Past Medical History Allergies/Adverse Reactions: Allergies adhesive tape Allergy (Verified 10/19/19 14:24) blisters Influenza Virus Vaccines Allergy (Verified 10/19/19 14:24) shortness of breath/severe wheezing iron Allergy (Verified 10/19/19 14:24) from IV form chest pressure and heart palpitations Sulfa (Sulfonamide Antibiotics) Allergy (Verified 10/19/19 14:24) Shortness of breath bactrim does not work for her-per pcp paperwork meloxicam [From Mobic] Adverse Reaction (Verified 10/19/19 14:24) gi upset seasonal allergies Allergy (Uncoded 10/19/19 14:24) Other Home Medications: Ambulatory Orders Medication Instructions Recorded Furosemide [Lasix] 20 mg PO BID 09/30/13 Albuterol Inhaler [Ventolin Hfa] 2 puff INHALATION Q4H PRN PRN 10/30/18 Baclofen 10 mg PO TID 10/30/18 Gabapentin [Neurontin] 600 mg PO BID 10/30/18 Lisinopril [Zestril] 10 mg PO DAILY 10/30/18 Nystatin Powder [Mycostatin Powder] 1 applicatio TOPICAL BID PRN PRN 10/30/18 Oxybutynin Chloride [Ditropan Xl] 15 mg PO DAILY 10/30/18 Vitamin E 1,000 iu PO DAILY 10/30/18 levETIRAcetam tablet [Keppra 500 mg PO QHS 10/30/18 tablet] metFORMIN HCl [Glucophage] 500 mg PO BID 10/30/18 Cyanocobalamin (Vitamin B-12) 1,000 mcg PO DAILY 12/17/18 [B-12] Pravastatin [Pravachol] 20 mg PO QHS 12/17/18 Duloxetine HCl 60 mg PO QHS 03/22/19 Methenamine Hippurate [Hiprex] 1 gm PO BID 04/05/19 Fluconazole 200 mg PO SA 07/02/19 Hydrocodone Bitart/Apap 5-325 1 tab PO Q6H PRN PRN 07/02/19 [[place] 5/325] Venlafaxine XR [Effexor Xr] 150 mg PO BID 07/02/19 Ascorbic Acid [Vitamin C] 500 mg PO BID 08/18/19 Diltiazem CD [Cardizem CD] 120 mg PO DAILY 08/18/19 DiphenhydrAMINE [Benadryl] 20 mg PO BID PRN PRN 08/18/19 Pantoprazole Sodium [Protonix] 40 mg PO DAILY 08/18/19 Potassium Chloride [K-Dur] 10 meq PO DAILYCM 08/18/19 C,E,Zinc,Copper 11/Unzjt3a/Lut 1 ea PO TID 10/19/19 [Eye Health Adult 50+ Softgel] Cholecalciferol (VIT D3) [Vitamin 1,000 unit PO DAILY 10/19/19 D] L.acidoph,Paracasei, B.lactis 1 ea PO DAILY 10/19/19 [Probiotic] Ranitidine [Zantac] 150 mg PO BID 10/19/19 Past Medical History (Chronic Problems): Chronic Problems (Last Reviewed 08/18/19 @ 08:00 by Kyree Dutta MD) Ulcer of abdomen wall with fat layer exposed (Chronic) Ulcer of left groin with fat layer exposed (Chronic) Pressure ulcer of coccygeal region, stage 3 (Chronic) Morbid obesity (Chronic) Anxiety and depression (Chronic) HTN (hypertension) (Chronic) HLD (hyperlipidemia) (Chronic) Cellulitis of left abdominal wall (Chronic) Debility (Chronic) Depression (Chronic) VITA (obstructive sleep apnea) (Chronic) Cand[place] intertrigo (Chronic) Surgical History: cholecystectomy, hysterectomy, - - Suprapubic catheter placement. Psychiatric History: Anxiety, Bipolar, Depression RESEARCH TECHNOLOGIST History: No pertinent RESEARCH TECHNOLOGIST history - *Family History Maternal History Items: Diabetes, Heart Disease - Her father had a CABG and CHF Paternal History Items: Heart Disease Smoking Status: Former smoker Alcohol: None Drugs: None Objective: Vital Signs Temp Pulse Resp BP Pulse Ox 98.4 F 94 18 101/56 L 93 10/20/19 09:35 10/20/19 09:35 10/20/19 09:35 10/20/19 09:35 10/20/19 09:35 Oxygen Delivery Method Room Air Weight: 313 lb 7.957 oz Body Mass Index (BMI) 49.1 Intake and Output for Last 24 Hours 10/18/19 10/19/19 10/20/19 23:59 23:59 23:59 Intake Total 1919.0 / 1919.0 2721.0 / 2721.0 Output Total 2550 / 2550 2775 / 2775 Balance -631.0 / -631.0 -54.0 / -54.0 General: Awake, Alert, Oriented x 3 Oral: Moist Mucosa Neck: Supple Lungs: Clear to auscultation Cardiovascular: Regular Rhythm Abdomen: Soft Extremities: Mild LLE Edema Psych/Mental Status: Appropriate 10/19/19 14:50: WBC 10.4, RBC 3.56 L, Hgb 9.6 L, Hct 30.8 L, MCV 86.5, MCH 27.0, MCHC 31.2 L, Plt Count 305, MPV 9.7, Immature Gran % (Auto) 1.000 H, Neut % (Auto) 72.2 H, Lymph % (Auto) 14.2 L, [place] % (Auto) 9.7, Eos % (Auto) 2.5, Baso % (Auto) 0.4, Absolute Neuts (auto) 7.5, Nucleated RBC % 0 10/19/19 14:50: Sodium 133 L, Potassium 3.9, Chloride 101, Carbon Dioxide 25.0, Anion Gap 7, BUN 23 H, Creatinine 1.48 H, Est GFR (MDRD) Af Amer 45 L, Est GFR (MDRD) Non-Af 37 L, BUN/Creatinine Ratio 15.5, Glucose 89, Calcium 8.9 10/19/19 14:50: Lactic Acid 2.1 H* 10/19/19 17:00: Hemoglobin A1c 4.8 10/19/19 19:53: Lactic Acid 1.1 10/20/19 06:30: WBC 7.8, RBC 3.28 L, Hgb 8.9 L, Hct 28.3 L, MCV 86.3, MCH 27.1, MCHC 31.4 L, Plt Count 245, MPV 9.6, Immature Gran % (Auto) 1.000 H, Neut % (Auto) 71.6 H, Lymph % (Auto) 13.6 L, [place] % (Auto) 9.8, Eos % (Auto) 3.6, Baso % (Auto) 0.4, Absolute Neuts (auto) 5.6, Nucleated RBC % 0 10/20/19 06:30: Sodium 137, Potassium 3.5, Chloride 104, Carbon Dioxide 26.0, Anion Gap 7, BUN 20 H, Creatinine 1.14 H, Est GFR (MDRD) Af Amer 60, Est GFR (MDRD) Non-Af 50 L, BUN/Creatinine Ratio 17.5, Glucose 117 H, Calcium 8.5 10/20/19 06:30: Magnesium 2.0 Rhythm: EKG: ECHO: Stress Test: Cardiac Cath: PCI: CT Surgery: Holter monitor: EPS: PPM: CXR: Chest CT Scan: Assessment/Plan 1. Nonsustained V. tach: Patient's potassium was 3.5 and will be reasonable to keep this around 4. Patient has history of atrial arrhythmias including possibly a flutter with 2-1 block back in March of this year that was felt to be due to her acute illness at that time. She was supposed to be on a calcium channel roopa but review of her home meds does not reveal beta-roopa or calcium channel roopa. I think will be reasonable to repeat a 2D echo and also start the patient on a beta-roopa at this time.
--- NOTE | 2019-10-20 15:26 | ECHOD_ITS ---
Reason For Study: Arrhythmia Procedure This was a 2D Doppler, Color Flow transthoracic echocardiogram. The study was technically difficult. Exam performed portable in patient room. Left Ventricle Mild concentric left ventricular hypertrophy. The estimated ejection fraction is 75 %. Stage 2 diastolic dysfunction. No regional wall motion abnormalities noted. Right Ventricle Normal size and thickness. Normal systolic function. Atria The left atrium is mildly enlarged. Normal right atrium. Normal atrial septum. Mitral Valve Mild diffuse mitral valve thickening. Mild mitral annular calcification extending into the posterior leaflet. Trivial mitral valve insufficiency. Tricuspid Valve Normal tricuspid valve. Unable to estimate RV systolic pressure due to insufficient tricuspid regurgitant envelope. Trivial tricuspid valve insufficiency. Aortic Valve Trisinus/trileaflet aortic valve. Mild focal aortic valve thickening. There is no aortic stenosis. Pulmonic Valve Normal pulmonic valve. Great Vessels Normal aortic root. Normal arch. Normal inferior vena cava. Inferior vena cava collapse with sniff. Pericardium/Pleural No pericardial effusion. MMode/2D Measurements & Calculations LVIDd: 5.2 cm IVSd: 1.1 cm Ao root diam: 3.3 cm LVIDs: 2.9 cm LVPWd: 1.3 cm FS: 43.2 % LAV(MOD-bp): 72.5 ml LA A4 area: 23.3 cm2 LAV(MOD-bp) Indexed: 29.7 ml/m2 LAV(MOD-sp2): 68.5 ml LAV(MOD-sp4): 60.7 ml Time Measurements MV dec time: 0.27 sec Doppler Measurements & Calculations MV E max hermelindo: 129.1 cm/sec Lat Peak E' Hermelindo: 6.6 cm/sec Med Peak E' Hermelindo: 7.5 cm/sec MV A max hermelindo: 114.2 cm/sec E/E' lat: 19.6 E/E' med: 17.2 MV E/A: 1.1 MV V2 max: 159.9 cm/sec MV P1/2t max hermelindo: 159.9 cm/sec Ao V2 max: 172.8 cm/sec MV max P.2 mmHg MV P1/2t: 91.5 msec Ao max P.9 mmHg MV V2 mean: 101.9 cm/sec MV dec slope: 511.6 cm/sec2 Ao V2 mean: 102.6 cm/sec MV mean P.7 mmHg MVA(P1/2t): 2.4 cm2 Ao mean P.1 mmHg MV V2 VTI: 42.8 cm Ao V2 VTI: 33.5 cm LV V1 max: 132.0 cm/sec MR max hermelindo: 513.3 cm/sec PA V2 max: 87.6 cm/sec LV V1 max P.0 mmHg MR max P.4 mmHg LV V1 mean P.7 mmHg MR mean hermelindo: 426.6 cm/sec LV V1 mean: 89.3 cm/sec MR mean P.7 mmHg LV V1 VTI: 31.6 cm MR VTI: 173.3 cm Interpretation Summary Mild concentric left ventricular hypertrophy. The estimated ejection fraction is 75 %. Stage 2 diastolic dysfunction. Trivial mitral valve insufficiency. Unable to estimate RV systolic pressure due to insufficient tricuspid regurgitant envelope. Trivial tricuspid valve insufficiency. Compared to echo report dated 10/31/2018, no appreciable changes noted. Ordering Physician: Cindy Lofton Referring Physician: Vickie Muse Performed By: Cayden Snowden RCS
[2019-10-20] MEDS: Nystatin Powder 15gm Bottle 1 APPLIC TOPICAL (16:11)
[2019-10-20 17:35] LABS: Bedside Glucose 119 mg/dL (70-110)
[2019-10-20] MEDS: DULoxetine Hcl 60 MG Capsule PO (23:25)
[2019-10-20] MEDS: levETIRAcetam 500 MG Tablet PO (23:26)
[2019-10-20] MEDS: Metoprolol Tartrate 25 MG Tablet PO (23:26)
[2019-10-20] MEDS: Pravastatin 20 MG Tablet PO (23:26)
[2019-10-21] VITALS (11 sets, daily range): BP systolic 105–132; BP diastolic 56–70; PULSE 68–87; RESP 18; TEMP 36.4–36.5; O2SAT 96–99
[2019-10-21 00:26] LABS: Bedside Glucose 114 mg/dL (70-110)
--- NOTE | 2019-10-21 03:34 | CPS ---
pt doesn't wear cpap at home.
[2019-10-21] MEDS: 0.9% Normal Saline 1,000 ML 150 ML IV ×3 (03:36→20:47)
[2019-10-21] MEDS: Heparin Injection (Vial) 5,000 UNIT/ML VIAL 5000 UNIT SC ×3 (05:34→22:24)
[2019-10-21] MEDS: Baclofen 10 MG Tablet PO ×3 (05:39→22:22)
[2019-10-21 06:55] LABS: Bedside Glucose 101 mg/dL (70-110)
[2019-10-21 07:36] LABS: Absolute Lymphocyte Count 1.07 X10^3/uL (0.83-4.51); Absolute Neutrophil Count 4.1 X10^3/uL (2.0-7.7); Basophil# 0.04 X10^3/uL; Basophil% 0.6 % (0-1); Eosinophils% 6.3 % (0-5); Hematocrit 29.4 % (37-47); Hemoglobin 8.9 g/dL (12.0-15.0); Lymphocyte # 1.07 X10^3/ul (4.0); Lymphocyte % 16.9 % (19-41); Mean Corp Hgb Conc 30.3 g/dL (32-36); Mean Corpuscular Hgb 26.5 pg (27.0-32.0); Mean Corpuscular Volume 87.5 fL (81-99); Mean Platelet Vol. 9.6 fl (6.2-12.0); Monocyte# 0.59 X10^3/uL; Monocyte% 9.3 % (0-10); NRBC Flagged by Analyzer 0 % (0-5); Neutrophil # 4.12 X10^3/uL (2.7-7.7); Neutrophil % 64.9 % (47-70); Platelet Count 242 K/mm3 (150-450); RBC Distribution Width CV 16.7 % (11.6-14.6); RBC Distribution Width SD 53.7 fl (35.1-43.9); Red Blood Count 3.36 M/mm3 (4.2-5.4); White Blood Count 6.4 K/mm3 (4.4-11.0)
[2019-10-21] MEDS: Multivitamins,Ther W-Minerals Tablet 1 TABLET PO (08:04)
[2019-10-21] MEDS: Multivitamin (Healthy Eyes) Capsule 1 CAP PO (08:05)
[2019-10-21] MEDS: Ascorbic Acid 500 MG Tablet PO ×2 (08:05→22:22)
[2019-10-21] MEDS: Cyanocobalamin 500 MCG Tablet 1000 MCG PO (08:06)
[2019-10-21 08:22] LABS: Anion Gap 5 (5-15); BUN 15 mg/dL (7-18); BUN/Creat Ratio 15.3 RATIO (10-20); Calcium,Total 8.5 mg/dL (8.5-10.1); Chloride 108 mmol/L (98-107); Creatinine, Serum 0.98 mg/dL (0.55-1.02); EST Glomerular Filtration Rate 59 mL/min (>60); Est Glom Filt Rate - Afr Amer 71 mL/min (>60); Estimated Creatinine Clearance 49.72 ml/min; Glucose 102 mg/dL (74-106); Potassium 3.7 mmol/L (3.5-5.1); Sodium Level 139 mmol/L (136-145)
[2019-10-21] MEDS: Venlafaxine XR 150 MG Capsule PO ×2 (09:36→22:22)
[2019-10-21] MEDS: Tolterodine Tartrate 4 MG CAP.SA PO (09:36)
[2019-10-21] MEDS: Pantoprazole Sodium 40 MG Tablet PO (09:36)
[2019-10-21] MEDS: Glucerna Shake 120 ML LIQUID PO ×4 (09:36→22:27)
[2019-10-21] MEDS: Famotidine 20 MG Tablet PO (09:36)
[2019-10-21] MEDS: Methenamine Hippurate 1 GM Tablet PO ×2 (09:37→22:22)
[2019-10-21] MEDS: Gabapentin 600 MG Tablet PO ×2 (09:37→22:22)
[2019-10-21] MEDS: Metoprolol Tartrate 25 MG Tablet PO ×2 (09:39→22:22)
--- NOTE | 2019-10-21 10:22 | PN.CARD_ITS ---
Subjectve: Patient doing better today after IV fluids and antibiotics. Her left lower extremity cellulitis has improved but still has some tenderness and erythema over her left posterior calf area. Blood pressure much better. Beta-roopa started yesterday. Patient did have a 15 beat run of nonsustained ventricular tachycardia however telemetry overnight has shown normal sinus rhythm with rare PVCs. On further history the patient denies any exertional chest pain, angina, and admits to occasional palpitations at home while on Cardizem therapy. Cardizem held on admission due to hypotension. Objective: Vital Signs Temp Pulse Resp BP Pulse Ox 97.5 F L 71 18 114/60 97 10/21/19 03:35 10/21/19 09:39 10/21/19 03:35 10/21/19 09:39 10/21/19 03:35 Oxygen Flow Rate (L/min) 2 Oxygen Delivery Method Nasal Cannula Weight: 313 lb 7.957 oz Body Mass Index (BMI) 49.1 Intake and Output for Last 24 Hours 10/19/19 10/20/19 10/21/19 23:59 23:59 23:59 Intake Total 1919.0 / 1919.0 4826.75 / 4826.75 1583.75 / 1583.75 Output Total 2550 / 2550 3775 / 3775 850 / 850 Balance -631.0 / -631.0 1051.75 / 1051.75 733.75 / 733.75 General: Awake, Alert, Oriented x 3 HEENT: PERRL, EOMI, Sclera Non Icteric Neck: Supple, Good ROM, No Lymph Node Enlargement Lungs: Clear to auscultation Cardiovascular: Regular Rhythm, Normal S1, Normal S2, No Murmurs, No Rubs, No Gallops Vascular: No Carotid Bruits, Normal Femoral Pulses, Normal Radial Pulses, Normal Dorsalis Pedal Pulse, Normal Posterior Tibial Pulses Abdomen: Bowel Sounds Present, Soft, Non Tender, No HSM, No Organomegaly Extremities: No Cyanosis, No Clubbing, No edema Neurological: No Focal Motor or Sensory Deficit 10/21/19 06:52: WBC 6.4, RBC 3.36 L, Hgb 8.9 L, Hct 29.4 L, MCV 87.5, MCH 26.5 L , MCHC 30.3 L, Plt Count 242, MPV 9.6, Immature Gran % (Auto) 2.000 H, Neut % (Auto) 64.9, Lymph % (Auto) 16.9 L, [place] % (Auto) 9.3, Eos % (Auto) 6.3 H, Baso % (Auto) 0.6, Absolute Neuts (auto) 4.1, Nucleated RBC % 0 10/21/19 06:52: Sodium 139, Potassium 3.7, Chloride 108 H, Carbon Dioxide 26.0, Anion Gap 5, BUN 15, Creatinine 0.98, Est GFR (MDRD) Af Amer 71, Est GFR (MDRD) Non-Af 59 L, BUN/Creatinine Ratio 15.3, Glucose 102, Calcium 8.5 Rhythm: EKG: ECHO: Pending Stress Test: Cardiac Cath: PCI: CT Surgery: Holter monitor: EPS: PPM: CXR: Chest CT Scan: Medical Necessity - Tobacco Use Smoking Status: Former smoker Assessment/Plan 1. Wide-complex tachycardia: The patient had a similar set of events when she was admitted several months ago with cellulitis of her right lower extremity at which time she had wide-complex tachycardia which was thought to be either SVT with aberrancy, or true wide-complex tachycardia. Her echocardiogram showed normal LV function at that time. The patient's potassium was somewhat reduced on her admission which may have contributed to her palpitations and nonsustained ventricular tachycardia. I recommended the patient undergo a repeat echocardiogram followed by a noninvasive non-walking stress test prior to her discharge to determine if she has any source of ischemia to explain her wide-complex tachycardia. If her stress test is grossly abnormal for ischemia, she may require a diagnostic coronary angiogram at some time in the near future. In the meantime I recommend keeping her potassium above 4.0 and her magnesium of 2.0. She will continue Lopressor 25 mill grams p.o. twice daily and titrate up as needed for either arrhythmias or hypertension. 2. Obstructive sleep apnea: Continue either CPAP therapy or supplemental oxygen as needed. 3. Hyperlipidemia: Recommend obtaining a fasting lipid profile once her acute i llness has resolved. 4. Thank you very much for the opportunity to participate in the cardiac care of your patient. Code Visit Inpatient E&M: 63685 Subs Hosp L2
[2019-10-21 12:15] LABS: Bedside Glucose 96 mg/dL (70-110)
--- NOTE | 2019-10-21 12:45 | CASEMGMT ---
TONI MARTINES assessment: Face to Face with patient for initial transition planning/care coordination assessment. TONI MARTINES introduced self and role at [facility], pt voices understanding and consents to assessment at this time. Pt is sitting up in bed in no distress at this time. Pt is A/Ox4 at this time and answers all questions appropriately at this time. Care providers, pharmacy, and demographics verified at this time. PCP: Bianca Specialists: Marcelo, neuro; Bernard, nephro; Klaudia, uro; Alex, e business specialist; Bryson pulm Preferred Pharmacy: [facility] Insurance: MCR A/B, [employer] Prescription Benefit: Yes Living Will/HPOA: Pt is aware that LW and general POA are on file at [facility] at this time. Pt states that she has been unable to locate her HPOA/LW at home and would just like to complete HPOA while here. BaoValarie SW aware, voices understanding. LNOK: Esperanza Ribeiro, sister Living Arrangements: Pt states she lives alone in a manufactured home with a ramp and she states that she has a caregiver that lives next door that helps her with ADL's. Pt states that her caregiver gets her up every morning, helps her to the bathroom/shower, and puts her to bed every night. Pt does not walk but has an electric w/c to get where she needs to go. Pt states that she can call caregiver at any time to help with what she needs. Pt states she does cook and bake for herself. Pt states no concerns at home at this time. Transportation: Pt states she has her own [facility] accessible van and either her sister/friend/caregiver drive and pt states no transportation concerns at this time. DME/HHC: Pt has the following DME: electric w/c, lift chair, walk-in shower w/ shower chair, hand held shower, grab bars, cpap, and home oxygen 2 liters at bedtime thru [facility]. Pt states no need for any further DME at this time, but does states concerns with [facility] 'not knowing about my cpap.' Pt states she has called there several times to discuss cpap and she states 'they didn't even know I have it.' This RN CM placed a call to Cris at [facility] and she states that pt's cpap order 08/17/2019 and that pt never signed required MCR form to transfer to [facility] from [facility] when it closed. Cris states that pt needs to sign this form whether she wants to stay with [facility] or transfer to a different company. Pt will need a new order for cpap and the last one was written by Bryson. This TONI CM updated pt on all at this time, voices understanding and pt provided per request with local [facility] companies. Pt has had [facility] in the past and has been to the [facility] in the past. Pt states no concerns with going home at time of discharge. Pt is retired. Pt states does not smoke or drink ETOH. Pt states no further concerns/needs at this time. CM to follow for any further discharge planning/needs. Advised pt to ask for CM if any further questions/concerns/needs arise, voices understanding Pt Goal: Home Plan: Home Berry MUÑOZ CM
[2019-10-21] MEDS: Nystatin Powder 15gm Bottle 1 APPLIC TOPICAL (13:46)
--- NOTE | 2019-10-21 14:50 | VDLE_ITS ---
Reason For Study: Left pain edema and pain Procedure LEFT Exam performed portable in patient room. GSV is normal. A preliminary report was called and/or faxed CFV is compressible, spontaneous, phasic, to PCU. competent, and demonstrates normal augmentation. FV is compressible, spontaneous, phasic, competent and demonstrates normal augmentation. POP V is compressible, spontaneous, phasic, competent and demonstrates normal augmentation. T/P Trunk is compressible. PTV is compressible. LT PerV is compressible. SFJ was noted visualized due to pt body habitus. Interpretation Summary There is no evidence of left lower extremity deep vein thrombosis. Left great saphenous vein appears patent and compressible segmentally. As noted the left saphenofemoral junction not visualized secondary to body habitus Ordering Physician: Luís Collazo Referring Physician: Colby Valenzuela Performed By: Asya Del Angel RVT
--- NOTE | 2019-10-21 14:52 | PCM.PN.HOSP ---
Patient Problems: Active and Suspected Problems (Last Reviewed 08/18/19 @ 08:00 by Kyree Dutta MD) V tach (Acute) Reason for Visit: redness of left leg much improved, but still with pain and redness on left calf. Vitals/I&O's: Vital Signs Temp Pulse Resp BP Pulse Ox 36.5 C L 71 18 114/60 99 10/21/19 09:35 10/21/19 09:39 10/21/19 09:35 10/21/19 09:39 10/21/19 09:35 Oxygen Flow Rate (L/min) 2 Oxygen Delivery Method Room Air Weight: 142.2 kg Body Mass Index (BMI) 49.1 Intake and Output for Last 24 Hours 10/19/19 10/20/19 10/21/19 23:59 23:59 23:59 Intake Total 1919.0 / 1919.0 4826.75 / 4826.75 3290.75 / 3290.75 Output Total 2550 / 2550 3775 / 3775 3050 / 3050 Balance -631.0 / -631.0 1051.75 / 1051.75 240.75 / 240.75 General: Alert, Cooperative, No apparent distress HEENT: Atraumatic, Normocephalic Oral: Moist Mucosa, No Gingival or Mucosal Lesions/ Ulcerations Neck: No Nodes, Trachea Midline Lungs: Clear to auscultation, Normal air movement, No rhonchi, No wheeze, No rales Cardiovascular: Regular rate, Regular Rhythm, Normal S1, Normal S2, No murmurs Abdomen: Bowel Sounds Present, Soft, Non Tender, Non-Distended, No Hepato-splenomegaly Extremities: - - redness, induration and tenderness of left calf. Psych/Mental Status: Normal Affect, Appropriate Microbiology Past 72 Hours 10/19/19 15:10 Blood Culture (Wb) - Anticubital Right Blood Culture - Preliminary No growth in 48 hours. 10/19/19 14:50 Blood Culture (Wb) - Left Wrist Blood Culture - Preliminary No growth in 48 hours. Laboratory Results 10/20/19 17:24: POC Glucose 119 H 10/20/19 23:14: POC Glucose 114 H 10/21/19 06:38: POC Glucose 101 10/21/19 06:52: WBC 6.4, RBC 3.36 L, Hgb 8.9 L, Hct 29.4 L, MCV 87.5, MCH 26.5 L, MCHC 30.3 L, RDW Std Deviation 53.7 H, RDW Coeff of Jessi 16.7 H, Plt Count 242, MPV 9.6, Immature Gran % (Auto) 2.000 H, Neut % (Auto) 64.9, Lymph % (Auto) 16.9 L, [place] % (Auto) 9.3, Eos % (Auto) 6.3 H, Baso % (Auto) 0.6, Absolute Neuts (auto) 4.1, Absolute Lymphs (auto) 1.07, Nucleated RBC % 0 10/21/19 06:52: Sodium 139, Potassium 3.7, Chloride 108 H, Carbon Dioxide 26.0, Anion Gap 5, BUN 15, Creatinine 0.98, Estim Creat Clear Calc 49.72, Est GFR (MDRD) Af Amer 71, Est GFR (MDRD) Non-Af 59 L, BUN/Creatinine Ratio 15.3, Glucose 102, Calcium 8.5 10/21/19 11:57: POC Glucose 96 Current Medications Hydrocodone Bitart/Acetaminophen ([place] 5mg-325mg) 1 tablet PO Q6H PRN PRN PRN Reason: Pain Score 1-10/10 Albuterol Sulfate (Ventolin Aerosols) 2.5 mg INHALATION Q4H PRN PRN PRN Reason: SOB &/OR WHEEZING Ascorbic Acid (Vitamin C) 500 mg PO BID [facility] Last Admin: 10/21/19 08:05 Dose: 500 mg Documented by: Baclofen (Lioresal) 10 mg PO TID [facility] Last Admin: 10/21/19 13:42 Dose: 10 mg Documented by: Cholecalciferol (Vitamin D) 1,000 unit PO DAILY [facility] Last Admin: 10/21/19 08:06 Dose: 1,000 unit Documented by: Cyanocobalamin (Vitamin B12) 1,000 mcg PO DAILY [facility] Last Admin: 10/21/19 08:06 Dose: 1,000 mcg Documented by: Dextrose (D50w Syringe) 0 gm IV X1 PRN; Protocol PRN Reason: Hypoglycemia Diphenhydramine HCl (Benadryl) 25 mg PO BID PRN PRN PRN Reason: ALLERGIES Last Admin: 10/19/19 22:08 Dose: 25 mg Documented by: Duloxetine HCl (Cymbalta) 60 mg PO QHS [facility] Last Admin: 10/20/19 23:25 Dose: 60 mg Documented by: Famotidine (Pepcid) 20 mg PO DAILY [facility] Last Admin: 10/21/19 09:36 Dose: 20 mg Documented by: Fluconazole (Diflucan) 200 mg PO Sa@1000 [facility] Last Admin: 10/19/19 18:37 Dose: 200 mg Documented by: Fluticasone Propionate (Flonase Nasal [place]) 2 spray NASAL DAILY PRN PRN Reason: ALLERGIES Gabapentin (Neurontin) 600 mg PO BID [facility] Last Admin: 10/21/19 09:37 Dose: 600 mg Documented by: Glucagon () 1 mg IM .X1 PRN PRN Reason: Hypoglycemia Heparin Sodium (Porcine) (Heparin Na) 5,000 unit SC Q8 [facility] Last Admin: 10/21/19 13:42 Dose: 5,000 unit Documented by: Sodium Chloride () 1,000 mls @ 150 mls/hr IV .Q6H40M [facility] Last Admin: 10/21/19 11:52 Dose: 150 mls/hr Documented by: Ampicillin Sodium/Sulbactam (Sodium 3 gm/ Sodium Chloride) 112 mls @ 150 mls/hr IV Q6 [facility] Last Infusion: 10/21/19 12:40 Dose: Infused Documented by: Sodium Chloride () 250 mls @ 15 mls/hr IV .[id number] PRN PRN Reason: Saline Flush Last Infusion: 10/21/19 03:41 Dose: 0 mls/hr Documented by: Insulin Human Lispro (Humalog Taylor (Bkc)) 0 unit SC ACHS [facility]; Protocol Last Admin: 10/21/19 11:58 Dose: Not Given Documented by: Lactobacillus Acidophilus (Acidophilus) 1 tablet PO DAILY [facility] Last Admin: 10/21/19 09:36 Dose: 1 tablet Documented by: Levetiracetam (Keppra Tablet) 500 mg PO QHS [facility] Last Admin: 10/20/19 23:26 Dose: 500 mg Documented by: Methenamine Hippurate (Hiprex) 1 gm PO BID [facility] Last Admin: 10/21/19 09:37 Dose: 1 gm Documented by: Metoprolol Tartrate (Lopressor (Beta Genaro)) 25 mg PO BID [facility] Last Admin: 10/21/19 09:39 Dose: 25 mg Documented by: Multivitamins/Minerals (Multivitamin With Minerals) [facility] Last Admin: 10/21/19 08:04 Dose: 1 tablet Documented by: Multivitamins/Minerals (Healthy Eyes) 1 capsule PO DAILY [facility] Last Admin: 10/21/19 08:05 Dose: 1 capsule Documented by: Nutritional Formula (Lactose Free) (Glucerna Shake) 120 ml PO 4X/DAY [facility] Last Admin: 10/21/19 13:42 Dose: 120 ml Documented by: Nystatin (Mycostatin Powder) 1 applic TOPICAL BID PRN PRN; Protocol PRN Reason: yeast infection to fold areas Last Admin: 10/21/19 13:46 Dose: 1 applic Documented by: Pantoprazole Sodium (Protonix) 40 mg PO DAILY [facility] Last Admin: 10/21/19 09:36 Dose: 40 mg Documented by: Potassium Chloride (K-Dur) [facility] Last Admin: 10/21/19 08:05 Dose: 10 meq Documented by: Pravastatin Sodium (Pravachol) 20 mg PO QHS [facility] Last Admin: 10/20/19 23:26 Dose: 20 mg Documented by: Sodium Chloride () 10 - 40 ml IV UD PRN PRN Reason: SALINE FLUSH Tolterodine Tartrate (Detrol La) 4 mg PO DAILY [facility] Last Admin: 10/21/19 09:36 Dose: 4 mg Documented by: Venlafaxine HCl (Effexor Xr) 150 mg PO BID [facility] Last Admin: 10/21/19 09:36 Dose: 150 mg Documented by: Medical Necessity - Tobacco Use Smoking Status: Former smoker Assessment/Plan All Active Problems (Last Reviewed 08/18/19 @ 08:00 by Kyree Dutta MD) Severe sepsis (Acute) UTI (urinary tract infection) due to urinary indwelling catheter (Acute) Severe sepsis (Acute) V tach (Acute) UTI (urinary tract infection) (Acute) MICHAELLE (acute kidney injury) (Acute) Suprapubic catheter dysfunction (Resolved) 1. LLE cellulitis improved still with erythema of calf, will check duplex to R/O DVT continue amp/sulbactam likely change to amox/CA on DC through the 2. Wide complex tachycardia stress test ordered optimize electrolytes 3. VTE proph: LMWH. moderate risk. Code Visit Inpatient E&M: 57452 Subs Hosp L2
--- NOTE | 2019-10-21 14:59 | CASEMGMT ---
Patient has a Healthcare LW on file at [facility] and a durable power of associate attorney. Patient was notified she does not have a Healthcare POA on file. She said she would like to complete the documents. SW checked in with patient, but she had a visitor and did not want to do them at this time. SW will check back again. Ashwini VIERA
[2019-10-21 15:55] LABS: Bedside Glucose 91 mg/dL (70-110)
[2019-10-21] MEDS: HYDROcodone Bitartrate/Apap 5/325 Tablet PO (20:01)
[2019-10-21] MEDS: levETIRAcetam 500 MG Tablet PO (22:22)
[2019-10-21] MEDS: Pravastatin 20 MG Tablet PO (22:22)
[2019-10-21] MEDS: DULoxetine Hcl 60 MG Capsule PO (22:22)
[2019-10-21 22:36] LABS: Bedside Glucose 103 mg/dL (70-110)
[2019-10-22 03:00] VITALS: PULSE 77
[2019-10-22 03:35] VITALS: BP 116/65; PULSE 80; RESP 18; TEMP 36.6; O2SAT 98
[2019-10-22] MEDS: 0.9% Normal Saline 1,000 ML 150 ML IV (04:16)
[2019-10-22] MEDS: Pantoprazole Sodium 40 MG Tablet PO (05:26)
[2019-10-22] MEDS: Gabapentin 600 MG Tablet PO (05:26)
[2019-10-22] MEDS: Famotidine 20 MG Tablet PO (05:26)
[2019-10-22] MEDS: Baclofen 10 MG Tablet PO ×2 (05:26→14:34)
[2019-10-22 06:46] LABS: Bedside Glucose 104 mg/dL (70-110)
[2019-10-22 06:47] LABS: Anion Gap 6 (5-15); BUN 12 mg/dL (7-18); BUN/Creat Ratio 11.2 RATIO (10-20); Calcium,Total 8.5 mg/dL (8.5-10.1); Chloride 111 mmol/L (98-107); Creatinine, Serum 1.07 mg/dL (0.55-1.02); EST Glomerular Filtration Rate 53 mL/min (>60); Est Glom Filt Rate - Afr Amer 65 mL/min (>60); Estimated Creatinine Clearance 45.54 ml/min; Glucose 104 mg/dL (74-106); Potassium 3.9 mmol/L (3.5-5.1); Sodium Level 141 mmol/L (136-145)
[2019-10-22 07:17] VITALS: PULSE 77
[2019-10-22 10:00] VITALS: BP 106/61; PULSE 78; RESP 16; TEMP 36.3; O2SAT 97
--- NOTE | 2019-10-22 10:02 | PCM.PN.CARD ---
Subjectve: Patient doing well this morning. Telemetry negative overnight. No further wide-complex tachycardia noted. Patient undergoing stress test at this time. Echocardiogram pending. Objective: Vital Signs Temp Pulse Resp BP Pulse Ox 97.8 F 77 18 116/65 98 10/22/19 03:35 10/22/19 07:17 10/22/19 03:35 10/22/19 03:35 10/22/19 03:35 Oxygen Flow Rate (L/min) 2 Oxygen Delivery Method Nasal Cannula Weight: 313 lb 7.957 oz Body Mass Index (BMI) 49.1 Intake and Output for Last 24 Hours 10/20/19 10/21/19 10/22/19 23:59 23:59 23:59 Intake Total 4826.75 / 4826.75 5602.75 / 5602.75 1456.5 / 1456.5 Output Total 3775 / 3775 5825 / 5825 1175 / 1175 Balance 1051.75 / 1051.75 -222.25 / -222.25 281.5 / 281.5 General: Awake, Alert, Oriented x 3 HEENT: PERRL, EOMI, Sclera Non Icteric Neck: Supple, Good ROM, No Lymph Node Enlargement Lungs: Clear to auscultation Cardiovascular: Regular Rhythm, Normal S1, Normal S2, No Murmurs, No Rubs, No Gallops Vascular: No Carotid Bruits, Normal Femoral Pulses, Normal Radial Pulses, Normal Dorsalis Pedal Pulse, Normal Posterior Tibial Pulses Abdomen: Bowel Sounds Present, Soft, Non Tender, No HSM, No Organomegaly Extremities: No Cyanosis, No Clubbing, No edema Neurological: No Focal Motor or Sensory Deficit 10/22/19 05:15: Sodium 141, Potassium 3.9, Chloride 111 H, Carbon Dioxide 24.0, Anion Gap 6, BUN 12, Creatinine 1.07 H, Est GFR (MDRD) Af Amer 65, Est GFR (MDRD) Non-Af 53 L, BUN/Creatinine Ratio 11.2, Glucose 104, Calcium 8.5, Magnesium 2.0 Rhythm: EKG: ECHO: pending Stress Test: Cardiac Cath: PCI: CT Surgery: Holter monitor: EPS: PPM: CXR: Chest CT Scan: Medical Necessity - Tobacco Use Smoking Status: Former smoker Assessment/Plan 1. Wide-complex tachycardia: The patient had a similar set of events when she was admitted several months ago with cellulitis of her right lower extremity at which time she had wide-complex tachycardia which was thought to be either SVT with aberrancy, or true wide-complex tachycardia. Her echocardiogram showed normal LV function at that time. The patient's potassium was somewhat reduced on her admission which may have contributed to her palpitations and nonsustained ventricular tachycardia. Repeat echocardiogram demonstrates hyperdynamic LV function with an EF of 75%, unable to quantitate RVSP. No appreciable changes from October 2018. Patient is in the process of undergoing a noninvasive non-walking stress test and we await those results. If her stress test is negative, she may be discharged home. If her stress test is grossly abnormal for ischemia, she may require a diagnostic coronary angiogram assuming her cellulitis has improved. If her stress test is abnormal, I would not recommend discharge home prior to catheterization given her wide-complex tachycardia on several occasions. In the meantime I recommend keeping her potassium above 4.0 and her magnesium of 2.0. She will continue Lopressor 25 mill grams p.o. twice daily and titrate up as needed for either arrhythmias or hypertension. 2. Obstructive sleep apnea: Continue either CPAP therapy or supplemental oxygen as needed. 3. Hyperlipidemia: Recommend obtaining a fasting lipid profile once her acute illness has resolved. 4. Thank you very much for the opportunity to participate in the cardiac care of your patient. If her stress test is negative, she may be discharged home. She may follow-up with Dr. Galo going forward. Code Visit Inpatient E&M: 53993 [facility] Hosp L2
[2019-10-22] MEDS: Tolterodine Tartrate 4 MG CAP.SA PO (10:13)
[2019-10-22] MEDS: Multivitamins,Ther W-Minerals Tablet 1 TABLET PO (10:13)
[2019-10-22 10:14] VITALS: BP 106/61; PULSE 78
[2019-10-22] MEDS: Multivitamin (Healthy Eyes) Capsule 1 CAP PO (10:14)
[2019-10-22] MEDS: Venlafaxine XR 150 MG Capsule PO (10:14)
[2019-10-22] MEDS: Ascorbic Acid 500 MG Tablet PO (10:14)
[2019-10-22] MEDS: Metoprolol Tartrate 25 MG Tablet PO (10:14)
[2019-10-22] MEDS: Methenamine Hippurate 1 GM Tablet PO (10:14)
[2019-10-22] MEDS: Cyanocobalamin 500 MCG Tablet 1000 MCG PO (10:15)
--- NOTE | 2019-10-22 10:16 | STRESSREP ---
Stress Test Report Pharmacologic myocardial perfusion stress test. 74-year-old lady with a history of cardiac dysrhythmia. Stress protocol: Resting KG demonstrates atrial rhythm with a rate of 77 bpm resting blood pressure 114/68 mmHg. 0.4 mg of regadenoson was infused per usual protocol followed by rapid intravenous saline flush injection continuous EKG monitoring was performed. The patient maintained sinus rhythm throughout the recording. There were frequent premature atrial complexes noted. At rest there were no ST or T wave changes noted suggest ischemia peak infusion nonspecific ST-T wave changes were noted. The maximum heart rate was 86 bpm which was 56% of maximum predicted heart rate the maximum workload was 1 metabolic equivalent. The resting blood pressure was 140/68 final blood pressure was 102/62. Myocardial perfusion protocol. 15.0 mCi of technetium 99m sestamibi was injected at rest. 0.4 mg of regadenoson was infused per usual protocol peak infusion 45.0 mCi of technetium 99m sestamibi was injected stress images were obtained stress and rest images were reconstructed and compared in the short axis vertical long horizontal long axis. Gated images were also obtained Perfusion SPECT analysis: Perfusion images were obtained stress and resting images. No obvious perfusion defects were noted on the stress images in comparison to the resting images. Patient was scanned with her arms beside her. No obvious infarct is noted. Gated SPECT analysis: The gated ejection fraction is noted to be 67%. Conclusion: Normal pharmacologic myocardial perfusion stress test.
[2019-10-22 12:01] LABS: Bedside Glucose 91 mg/dL (70-110)
--- NOTE | 2019-10-22 12:44 | CASEMGMT ---
Addendum entered by Asya Mcdermott 10/22/19 13:06: Pt states she would like to do HHC at this time and would like to do [facility] at this time as she has been with them in the past. Pt declined list of local in-network HHC agencies at this time. Order placed for SN and PT at this time. Call to Krysten at [facility] and she states they can take pt and is aware of discharge today. Pt voices no further questions/concerns/needs at this time. Berry MUÑOZ CM Original Note: This RN CM to room to discuss discharge plan with pt at this time. Initially, pt was interested in HHC SN, PT but then thought that maybe OP therapy would be better. Pt is unable to make a decision at this time and would like this RN CONRAD to check back later. Berry MUÑOZ CM
--- NOTE | 2019-10-22 13:00 | PCM.DC.SUM ---
Discharge Date and Diagnosis - Problem List Patient Problems: Active and Suspected Problems (Last Reviewed 08/18/19 @ 08:00 by Kyree Dutta MD) V tach (Acute) Date of Admission: 10/19/19 Date of Discharge: 10/22/19 - Primary Discharge Diagnosis Active and Suspected Problems (Last Reviewed 08/18/19 @ 08:00 by Kyree Dutta MD) V tach (Acute) 1. LLE cellulitis improved DC with amox/CA for 4 more days, to complete 7 day course 2. Wide complex tachycardia stress test negative metoprolol 25 BID - Secondary Discharge Diagnosis Chronic Problems (Last Reviewed 08/18/19 @ 08:00 by Kyree uDtta MD) Ulcer of abdomen wall with fat layer exposed (Chronic) Ulcer of left groin with fat layer exposed (Chronic) Pressure ulcer of coccygeal region, stage 3 (Chronic) Morbid obesity (Chronic) Anxiety and depression (Chronic) HTN (hypertension) (Chronic) HLD (hyperlipidemia) (Chronic) Cellulitis of left abdominal wall (Chronic) Debility (Chronic) Depression (Chronic) VITA (obstructive sleep apnea) (Chronic) Candidal intertrigo (Chronic) Hospital Course and Treatment Imaging Results: 10/22/19 10:26 Nuclear Stress Test - Chemical [NM] Routine Galo, Cardiology Operations: None Procedures: 2-D Echocardiogram, Stress test Summary of Care Provided: The patient is a 74 year old F presents with a left lower extremity pain and swelling. Patient was found to have a left lower extremity cellulitis and started on ampicillin/sulbactam. Overall, patient's leg improved and today the leg is much improved with resolved erythema but still with some induration in her medial left calf. Duplex was ordered to evaluate for DVT which was normal. Patient had some wide-complex tachycardia. Patient underwent stress test that was normal. Patient was on diltiazem and then changed over to metformin and her heart rate has been well controlled. Patient will follow-up with cardiology as outpatient. [] Patient Problems: Active and Suspected Problems (Last Reviewed 08/18/19 @ 08:00 by Kyree Dutta MD) V tach (Acute) - Physical Exam Vitals/I&O's: Vital Signs Temp Pulse Resp BP Pulse Ox 36.3 C L 78 16 106/61 97 10/22/19 10:00 10/22/19 10:14 10/22/19 10:00 10/22/19 10:14 10/22/19 10:00 Oxygen Flow Rate (L/min) 1 Oxygen Delivery Method Room Air Weight: 142.2 kg Body Mass Index (BMI) 49.1 Intake and Output for Last 24 Hours 10/20/19 10/21/19 10/22/19 23:59 23:59 23:59 Intake Total 4826.75 / 4826.75 5602.75 / 5602.75 1456.5 / 1456.5 Output Total 3775 / 3775 5825 / 5825 1175 / 1175 Balance 1051.75 / 1051.75 -222.25 / -222.25 281.5 / 281.5 General: Alert, Cooperative, No apparent distress HEENT: Atraumatic, Normocephalic Extremities: Edema Skin: - - resolving erythema of LLE. Musculoskeletal: No Tenderness to Palpation of Joints or Extremities, No Muscle Wasting Microbiology Past 72 Hours 10/19/19 15:10 Blood Culture (Wb) - Anticubital Right Blood Culture - Preliminary No growth in 48 hours. 10/19/19 14:50 Blood Culture (Wb) - Left Wrist Blood Culture - Preliminary No growth in 48 hours. Laboratory Results 10/21/19 15:41: POC Glucose 91 10/21/19 22:14: POC Glucose 103 10/22/19 05:15: Sodium 141, Potassium 3.9, Chloride 111 H, Carbon Dioxide 24.0, Anion Gap 6, BUN 12, Creatinine 1.07 H, Estim Creat Clear Calc 45.54, Est GFR (MDRD) Af Amer 65, Est GFR (MDRD) Non-Af 53 L, BUN/Creatinine Ratio 11.2, Glucose 104, Calcium 8.5, Magnesium 2.0 10/22/19 06:38: POC Glucose 104 10/22/19 11:50: POC Glucose 91 Current Medications Acetaminophen (Tylenol) 650 mg PO Q6H PRN PRN PRN Reason: Pain Score 1-5/10 Hydrocodone Bitart/Acetaminophen ([place] 5mg-325mg) 1 tablet PO Q6H PRN PRN PRN Reason: Pain Score 1-10/10 Last Admin: 10/21/19 20:01 Dose: 1 tablet Documented by: Albuterol Sulfate (Ventolin Aerosols) 2.5 mg INHALATION Q4H PRN PRN PRN Reason: SOB &/OR WHEEZING Ascorbic Acid (Vitamin C) 500 mg PO BID [facility] Last Admin: 10/22/19 10:14 Dose: 500 mg Documented by: Baclofen (Lioresal) 10 mg PO TID [facility] Last Admin: 10/22/19 05:26 Dose: 10 mg Documented by: Cholecalciferol (Vitamin D) 1,000 unit PO DAILY [facility] Last Admin: 10/22/19 10:15 Dose: 1,000 unit Documented by: Cyanocobalamin (Vitamin B12) 1,000 mcg PO DAILY [facility] Last Admin: 10/22/19 10:15 Dose: 1,000 mcg Documented by: Dextrose (D50w Syringe) 0 gm IV X1 PRN; Protocol PRN Reason: Hypoglycemia Diphenhydramine HCl (Benadryl) 25 mg PO BID PRN PRN PRN Reason: ALLERGIES Last Admin: 10/19/19 22:08 Dose: 25 mg Documented by: Duloxetine HCl (Cymbalta) 60 mg PO QHS [facility] Last Admin: 10/21/19 22:22 Dose: 60 mg Documented by: Famotidine (Pepcid) 20 mg PO DAILY [facility] Last Admin: 10/22/19 05:26 Dose: 20 mg Documented by: Fluconazole (Diflucan) 200 mg PO Sa@1000 [facility] Last Admin: 10/19/19 18:37 Dose: 200 mg Documented by: Fluticasone Propionate (Flonase Nasal [place]) 2 spray NASAL DAILY PRN PRN Reason: ALLERGIES Gabapentin (Neurontin) 600 mg PO BID [facility] Last Admin: 10/22/19 05:26 Dose: 600 mg Documented by: Glucagon () 1 mg IM .X1 PRN PRN Reason: Hypoglycemia Heparin Sodium (Porcine) (Heparin Na) 5,000 unit SC Q8 [facility] Last Admin: 10/22/19 05:17 Dose: Not Given Documented by: Sodium Chloride () 1,000 mls @ 150 mls/hr IV .Q6H40M [facility] Last Infusion: 10/22/19 06:09 Dose: 150 mls/hr Documented by: Ampicillin Sodium/Sulbactam (Sodium 3 gm/ Sodium Chloride) 112 mls @ 150 mls/hr IV Q6 [facility] Last Admin: 10/22/19 11:51 Dose: 150 mls/hr Documented by: Sodium Chloride () 250 mls @ 15 mls/hr IV .[id number] PRN PRN Reason: Saline Flush Last Infusion: 10/21/19 03:41 Dose: 0 mls/hr Documented by: Insulin Human Lispro (Humalog Kwikpen (Bkc)) 0 unit SC ACHS [facility]; Protocol Last Admin: 10/22/19 11:51 Dose: Not Given Documented by: Lactobacillus Acidophilus (Acidophilus) 1 tablet PO DAILY [facility] Last Admin: 10/22/19 10:13 Dose: 1 tablet Documented by: Levetiracetam (Keppra Tablet) 500 mg PO QHS [facility] Last Admin: 10/21/19 22:22 Dose: 500 mg Documented by: Methenamine Hippurate (Hiprex) 1 gm PO BID [facility] Last Admin: 10/22/19 10:14 Dose: 1 gm Documented by: Metoprolol Tartrate (Lopressor (Beta Genaro)) 25 mg PO BID [facility] Last Admin: 10/22/19 10:14 Dose: 25 mg Documented by: Multivitamins/Minerals ([facility]ivitamin With Minerals) [facility] Last Admin: 10/22/19 10:13 Dose: 1 tablet Documented by: Multivitamins/Minerals (Healthy Eyes) 1 capsule PO DAILY [facility] Last Admin: 10/22/19 10:14 Dose: 1 capsule Documented by: Nutritional Formula (Lactose Free) (Glucerna Shake) 120 ml PO 4X/DAY [facility] Last Admin: 10/22/19 11:06 Dose: Not Given Documented by: Nystatin (Mycostatin Powder) 1 applic TOPICAL BID PRN PRN; Protocol PRN Reason: yeast infection to fold areas Last Admin: 10/21/19 13:46 Dose: 1 applic Documented by: Pantoprazole Sodium (Protonix) 40 mg PO DAILY [facility] Last Admin: 10/22/19 05:26 Dose: 40 mg Documented by: Potassium Chloride (K-Dur) 10 meq PO DAILYCM [facility] Last Admin: 10/22/19 05:26 Dose: 10 meq Documented by: Pravastatin Sodium (Pravachol) 20 mg PO QHS [facility] Last Admin: 10/21/19 22:22 Dose: 20 mg Documented by: Sodium Chloride () 10 - 40 ml IV UD PRN PRN Reason: SALINE FLUSH Tolterodine Tartrate (Detrol La) 4 mg PO DAILY [facility] Last Admin: 10/22/19 10:13 Dose: 4 mg Documented by: Venlafaxine HCl (Effexor Xr) 150 mg PO BID [facility] Last Admin: 10/22/19 10:14 Dose: 150 mg Documented by: Discharge Diet: Low fat/ Low Cholesterol Home Medications: Medications to take at Discharge Furosemide [Lasix] 20 mg PO BID 09/30/13 Albuterol Inhaler [Ventolin Hfa] 2 puff INHALATION Q4H PRN PRN 10/30/18 Baclofen 10 mg PO TID 10/30/18 Gabapentin [Neurontin] 600 mg PO BID 10/30/18 Nystatin Powder [Mycostatin Powder] 1 applicatio TOPICAL BID PRN PRN 10/30/18 Oxybutynin Chloride [Ditropan Xl] 15 mg PO DAILY 10/30/18 Vitamin E 1,000 iu PO DAILY 10/30/18 levETIRAcetam tablet [Keppra tablet] 500 mg PO QHS 10/30/18 metFORMIN HCl [Glucophage] 500 mg PO BID 10/30/18 Cyanocobalamin (Vitamin B-12) [B-12] 1,000 mcg PO DAILY 12/17/18 Pravastatin [Pravachol] 20 mg PO QHS 12/17/18 Duloxetine HCl 60 mg PO QHS 03/22/19 Methenamine Hippurate [Hiprex] 1 gm PO BID 04/05/19 Fluconazole 200 mg PO SA 07/02/19 Hydrocodone Bitart/Apap 5-325 [[place] 5/325] 1 tab PO Q6H PRN PRN 07/02/19 Venlafaxine XR [Effexor Xr] 150 mg PO BID 07/02/19 Ascorbic Acid [Vitamin C] 500 mg PO BID 08/18/19 DiphenhydrAMINE [Benadryl] 20 mg PO BID PRN PRN 08/18/19 Pantoprazole Sodium [Protonix] 40 mg PO DAILY 08/18/19 Potassium Chloride [K-Dur] 10 meq PO DAILYCM 08/18/19 C,E,Zinc,Copper 11/Zhphe1w/Lut [Eye Health Adult 50 Plus Sftgl] 1 ea PO TID 10/19/19 Cholecalciferol (VIT D3) [Vitamin D3] 1,000 unit PO DAILY 10/19/19 L.acidoph,Paracasei, B.lactis [Probiotic] 1 ea PO DAILY 10/19/19 Ranitidine [Zantac] 150 mg PO BID 10/19/19 Amox/Clavulanate Tablet [Augmentin Tablet] 875 mg PO Q12H #8 tab 10/22/19 Metoprolol Tartrate [Lopressor (beta genaro)] 25 mg PO BID #60 tab 10/22/19 Following Prescrptions Were Given to Patient: Amox/Clavulanate Tablet [Augmentin Tablet] 875 mg PO Q12H #8 tab Transmission Status: Pending to [facility] Metoprolol Tartrate [Lopressor (beta genaro)] 25 mg PO BID #60 tab Transmission Status: Pending to [facility] Primary Care Physician: Colby Valenzuela DO [Primary Care Provider] - Within 1 Week Please Follow Up With: Jose Galo MD When: 4 weeks Disposition: Home with Home Health Minutes spent on discharge:: 35 Patient Condition:: Good Medical Necessity - Tobacco Use Smoking Status: Former smoker Meaningful Use Info Meaningful Use Diagnoses (Choose all that apply): None applicable Code Visit Inpatient E&M: 81313 Disch Hosp
--- NOTE | 2019-10-22 13:10 | PCM.DC ---
- Discharge Diagnoses Current Active Problems: Current Active and Chronic Problems (Last Reviewed 08/18/19 @ 08:00 by Kyree Dutta MD) V tach (Acute) You will use the following diet at home:: Cardiac Discharge Activity: Return to Normal Activity - as tolerated Call your doctor if your incision/area has: Increased Redness Call your doctor if you observe: Fever of 101 or Higher Allergies/Adverse Reactions: Allergies adhesive tape Allergy (Verified 10/19/19 14:24) blisters Influenza Virus Vaccines Allergy (Verified 10/19/19 14:24) shortness of breath/severe wheezing iron Allergy (Verified 10/19/19 14:24) from IV form chest pressure and heart palpitations Sulfa (Sulfonamide Antibiotics) Allergy (Verified 10/19/19 14:24) Shortness of breath bactrim does not work for her-per pcp paperwork meloxicam [From Mobic] Adverse Reaction (Verified 10/19/19 14:24) gi upset seasonal allergies Allergy (Uncoded 10/19/19 14:24) Other Medications to take at Discharge Furosemide [Lasix] 20 mg PO BID 09/30/13 Albuterol Inhaler [Ventolin Hfa] 2 puff INHALATION Q4H PRN PRN 10/30/18 Baclofen 10 mg PO TID 10/30/18 Gabapentin [Neurontin] 600 mg PO BID 10/30/18 Nystatin Powder [Mycostatin Powder] 1 applicatio TOPICAL BID PRN PRN 10/30/18 Oxybutynin Chloride [Ditropan Xl] 15 mg PO DAILY 10/30/18 Vitamin E 1,000 iu PO DAILY 10/30/18 levETIRAcetam tablet [Keppra tablet] 500 mg PO QHS 10/30/18 metFORMIN HCl [Glucophage] 500 mg PO BID 10/30/18 Cyanocobalamin (Vitamin B-12) [B-12] 1,000 mcg PO DAILY 12/17/18 Pravastatin [Pravachol] 20 mg PO QHS 12/17/18 Duloxetine HCl 60 mg PO QHS 03/22/19 Methenamine Hippurate [Hiprex] 1 gm PO BID 04/05/19 Fluconazole 200 mg PO SA 07/02/19 Hydrocodone Bitart/Apap 5-325 [[place] 5/325] 1 tab PO Q6H PRN PRN 07/02/19 Venlafaxine XR [Effexor Xr] 150 mg PO BID 07/02/19 Ascorbic Acid [Vitamin C] 500 mg PO BID 08/18/19 DiphenhydrAMINE [Benadryl] 20 mg PO BID PRN PRN 08/18/19 Pantoprazole Sodium [Protonix] 40 mg PO DAILY 08/18/19 Potassium Chloride [K-Dur] 10 meq PO DAILYCM 08/18/19 C,E,Zinc,Copper 11/Fayaq8h/Lut [Eye Health Adult 50 Plus Sftgl] 1 ea PO TID 10/19/19 Cholecalciferol (VIT D3) [Vitamin D3] 1,000 unit PO DAILY 10/19/19 L.acidoph,Paracasei, B.lactis [Probiotic] 1 ea PO DAILY 10/19/19 Ranitidine [Zantac] 150 mg PO BID 10/19/19 Amox/Clavulanate Tablet [Augmentin Tablet] 875 mg PO Q12H #8 tab 10/22/19 Metoprolol Tartrate [Lopressor (beta roopa)] 25 mg PO BID #60 tab 10/22/19 The following prescriptions were given: Amox/Clavulanate Tablet [Augmentin Tablet] 875 mg PO Q12H #8 tab Transmission Status: Received by [facility] Metoprolol Tartrate [Lopressor (beta roopa)] 25 mg PO BID #60 tab Transmission Status: Received by [facility] Primary Care Physician: Colby Valenzuela DO [Primary Care Provider] - Within 1 Week Test Results: Test results from this visit will be discussed in further detail at your follow-up appointment, if applicable. Please Follow Up With: Jose Galo MD When: 4 weeks Proposed Discharge Date: 10/22/19
[2019-10-22 14:00] VITALS: BP 111/62; PULSE 78; RESP 16; TEMP 36.6; O2SAT 94
[2019-10-22] MEDS: Glucerna Shake 120 ML LIQUID PO (14:34)
--- NOTE | 2019-10-23 15:44 | CASEMGMT ---
Case Management DC F/u Call: DC Date: 10/22/19 DC Diagnosis: V tach (Acute) 1. LLE cellulitis improved DC with amox/CA for 4 more days, to complete 7 day course 2. Wide complex tachycardia stress test negative metoprolol 25 BID DC Disposition: Home with [facility] SN/PT. Lace/Strata: 10/16 Called patient listed home number on demographics, answered, introduced self and role. Patient states that she felt good this morning but thinks she over did herself today and so she plans on resting right now. States she called [facility] and went over which medications to pull out from her pre packaging that were stopped per her DC medications from this admit. [facility] called medical office specialist and has an appointment set for 11/04/19 at 10am, has her pcp f/u on 10/30/19 at 10am. [facility] did s/w Krysten from [facility] and they will be out to visit tomorrow. Confirmed filled her medications and denies any issues, concerns or questions regarding her ACI, medications or f/u. Thanked patient for choosing [facility] for her care and ended conversation.
== END 2019-10-22 13:11 | disposition home health service (06) | DRG 603 ==
LOC: ED 14:46 → PCU 16:05
PROVIDERS: Family Medicine; Admitting Provider Student in an Organized Health Care Education/Training Program; Emergency Provider Emergency Medicine; Family Provider Family Medicine; PCP Family Medicine; Referring Provider Student in an Organized Health Care Education/Training Program
DX: L03.116 Cellulitis of left lower limb (principal); I47.2 Ventricular tachycardia; Z68.42 Body mass index [BMI] 45.0-49.9, adult; E87.2 Acidosis; I13.0 Hypertensive heart and chronic kidney disease with heart failure and stage 1 through stage 4 chronic kidney disease, or unspecified chronic kidney disease; I50.30 Unspecified diastolic (congestive) heart failure; E66.01 Morbid (severe) obesity due to excess calories; E78.5 Hyperlipidemia, unspecified; G40.909 Epilepsy, unspecified, not intractable, without status epilepticus; G47.33 Obstructive sleep apnea (adult) (pediatric); B37.2 Candidiasis of skin and nail; F32.9 Major depressive disorder, single episode, unspecified; D64.9 Anemia, unspecified; E11.22 Type 2 diabetes mellitus with diabetic chronic kidney disease; N18.3 Chronic kidney disease, stage 3 (moderate); Z79.84 Long term (current) use of oral hypoglycemic drugs; Z87.891 Personal history of nicotine dependence; Z87.440 Personal history of urinary (tract) infections; F41.9 Anxiety disorder, unspecified
CPT/HCPCS: 36415; 78452; 80048; 82962; 83036; 83605; 83735; 85025; 87040; 93005; 93017; 93306; 93971; 97162; 97166; 97530; 97802; 99285; A9500; J7030; J7050; Q9957; A4216; J0295; J2785

== ENCOUNTER 2019-11-08 13:00 | Outpatient (RCR) | payer MEDICARE, OTHER, SELFPAY ==
[2019-10-13 00:37] VITALS: BP 131/68; PULSE 87; RESP 20; TEMP 36.3
[2019-10-19 16:47] VITALS: BMI 49.1
[2019-10-25 13:20] VITALS: BP 121/72; PULSE 70; RESP 18; TEMP 36; BMI 50.1
--- NOTE | 2019-10-25 16:55 | PCM.WC.PN ---
(1) Ulcer of left groin with fat layer exposed Status: Chronic Current Visit: Yes Code(s): L98.492 - Non-pressure chronic ulcer of skin of other sites with fat layer exposed (2) Pressure ulcer of coccygeal region, stage 3 Status: Chronic Current Visit: Yes Code(s): L89.153 - Pressure ulcer of sacral region, stage 3 (3) Candidal intertrigo Status: Chronic Current Visit: Yes Code(s): B37.2 - Candidiasis of skin and nail Type of Wound Date of Service: 10/25/19 Chief Complaint: ulcers of left groin and abdomen, pressure ulcer of coccyx History of Wound: Samra is a 73 yo woman who presents to the wound center for ulcers of left groin and abdomen referred by wound nurse at [facility]. She was recently hospitalized at [facility] for urosepsis. She was on IV antibiotics of Meropenem and Vancomycin. She is morbidly obese and has problems with candidal intertrigo and has ulcers that open frequently for several years. She was using towels to keep moisture from accumulating under her skin folds but this has been ineffective. She started using InstaDry sheets since discharge from the hospital which has improved the moisture in her folds. She has been using nystatin powder as well. She has been using bacitracin to the ulcer of her abdomen. She has an indwelling suprapubic catheter that is changed monthly. She has heavy drainage from her ulcers. She is wheelchair bound and has an aid that helps her daily for a few hours per day. She denies fever or chills. In May 2019, she reports that she has a chronic ulcer of her coccyx area that was previously surgically debrided that comes and goes and has gotten worse since she was in the residential in early 2018. Progress of Wound: Samra is here for follow up of ulcers of her left groin and coccyx. She is tolerating Fibracol dressings to left groin and continues to use Interdry strips to her groin area to wick away moisture. She has had improvement in erythema and decreased size of her ulcers. She was hospitalized for cellulitis of her left lower leg last week. She has moderate to heavy drainage from the ulcers of her left groin. She is tolerating fibracol to her coccyx ulcer and has moderate to heavy drainage from this ulcer. Her mid-abdomen ulcer remains healed. She denies fever or chills or erythema or increased drainage from previous. - Physical Exam Vital Signs Temp Pulse Resp BP 96.8 F L 70 18 121/72 H 10/25/19 13:20 10/25/19 13:20 10/25/19 13:20 10/25/19 13:20 General: Alert, Oriented x3, Cooperative, No apparent distress HEENT: Atraumatic, Normocephalic Oral: Moist Mucosa Extremities: Edema Skin: Ulcer/ Wound Wound Measurements and Assessment WC - Nurse 1 - General Ulcer Measurement Start: 10/25/19 13:20 Freq: Status: Active Protocol: Activity Type Activity Date Activity User E-Sign Co-Sign Detail Recorded Client Recorded Date Recorded By Document 10/25/19 13:20 RB [id number] 10/25/19 13:23 RB 10/25/19 13:20 Wound Center Nurse 1 [Ulcer Assessment] #3 Coccyx -Combined with other wound No -Current Size (cm) - Length 0.3 -Current Size (cm) - Width 1 -Current Size (cm) - Depth 0.1 -Total Square Cm 0.3 -Tunneling No -Undermining/Tunneling No -Circular Undermining No -Exudate Amt Small -Exudate Type Serosanguineous -Wound Margin Thickened -Granulation Amt Medium (34-66%) -Granulation Quality [place] -Slough/Fibrin Yes -Necrosis Amt Small (1-33%) -Necrotic Tissue Type Adherent Slough -Structure Exposed N/A -Texture (Jessica-wound Skin Appearance) Scarring -Moisture (Jessica-wound Skin Appearance Assessed, ) Maceration -Color (Jessica-wound Skin Appearance) Assessed -Temperature (Jessica-wound Skin No Abnormality Appearance) (Pt Warm) -Tenderness on Palpation (Jessica-wound No Skin Appearance) -Ulcer Cleansing Wound Cleanser -Foul Odor after Cleansing No -Anesthetic Used 5% Lidocaine Gel #1 left abd fold cluster -Combined with other wound No -Current Size (cm) - Length 3 -Current Size (cm) - Width 0.3 -Current Size (cm) - Depth 0.1 -Total Square Cm 0.9 -Tunneling No -Undermining/Tunneling No -Circular Undermining No -Exudate Amt Small -Exudate Type Serosanguineous -Wound Margin Flat & Intact -Granulation Amt Medium (34-66%) -Granulation Quality [place],Red -Slough/Fibrin Yes -Necrosis Amt Small (1-33%) -Necrotic Tissue Type Adherent Slough -Structure Exposed N/A -Texture (Jessica-wound Skin Appearance) Excoriation, Friable -Moisture (Jessica-wound Skin Appearance Maceration ) -Color (Jessica-wound Skin Appearance) Assessed -Temperature (Jessica-wound Skin No Abnormality Appearance) (Pt Warm) -Tenderness on Palpation (Jessica-wound No Skin Appearance) -Ulcer Cleansing Wound Cleanser -Foul Odor after Cleansing No -Anesthetic Used 4% Lidocaine Solution WC - Nurse 2 - General Ulcer CM Notes Start: 10/25/19 13:20 Freq: Status: Active Protocol: Activity Type Activity Date Activity User E-Sign Co-Sign Detail Recorded Client Recorded Date Recorded By Document 10/25/19 13:43 MW [id number] 10/25/19 13:58 MW 10/25/19 13:43 Wound Center Nurse 2 [Procedure/Treatment] #3 Coccyx -Time 13:43 -Correct Patient Yes -Correct Side, Site, Position Yes -Correct Procedure Yes -Procedure Performed Yes -Type of Procedure Debridement -Clinical Debridement Subcutaneous -Post Debridement Size (cm) - Length 0.4 -Post Debridement Size (cm) - Width 0.4 -Post Debridement Size (cm) - Depth 0.2 -Total Square Cm 0.16 -Wound/Ulcer Outcome Not Healed -Ulcer Cleansing Rinsed/ Irrigated with Saline -Foul Odor after Cleansing No -Bioengineered Tissue No -Bleeding Controlled with Pressure -Offloading No -Treatment Response Procedure Tolerated Well #1 left abd fold cluster -Time 13:44 -Correct Patient Yes -Correct Side, Site, Position Yes -Correct Procedure Yes -Procedure Performed No -Wound/Ulcer Outcome Not Healed [See Physician Procedure note for Specifics] Pain Scale: 0-10 Numeric [Pain] -Is Patient Pain Free? Yes Psych/Mental Status: Normal Affect, Appropriate Debridement Note Post-Debridement Measurements/Treatment - Nurse 2 - General Ulcer CM Notes Start: 10/25/19 13:20 Freq: Status: Active Protocol: Activity Type Activity Date Activity User E-Sign Co-Sign Detail Recorded Client Recorded Date Recorded By Document 10/25/19 13:43 MW [id number] 10/25/19 13:58 MW 12/13/19 13:43 Wound Center Nurse 2 #3 Coccyx -Time 13:43 -Correct Patient Yes -Correct Side, Site, Position Yes -Correct Procedure Yes -Procedure Performed Yes -Type of Procedure Debridement -Clinical Debridement Subcutaneous -Post Debridement Size (cm) - Length 0.4 -Post Debridement Size (cm) - Width 0.4 -Post Debridement Size (cm) - Depth 0.2 -Total Square Cm 0.16 -Wound/Ulcer Outcome Not Healed -Ulcer Cleansing Rinsed/ Irrigated with Saline -Foul Odor after Cleansing No -Bioengineered Tissue No -Bleeding Controlled with Pressure -Offloading No -Treatment Response Procedure Tolerated Well #1 left abd fold cluster -Time 13:44 -Correct Patient Yes -Correct Side, Site, Position Yes -Correct Procedure Yes -Procedure Performed No -Wound/Ulcer Outcome Not Healed Pain Scale: 0-10 Numeric Is Patient Pain Free? Yes Wound debrided: coccyx Laterality: Not Applicable Wound Grade/Stage: Stage 3 Type of Debridement: Excisional debridement Anesthesia Used: 4% Lidocaine Solution Depth: Down to and including healthy tissue, in the subcutaneous layer Percentage of wound debrided: 100 Instrument Used: 3mm curette Tissue Removed: yellow slough, devitalized tissue Severity: Fat Layer Exposed Amount of bleeding with debridement: Mild Bleeding Controlled with: Compression and gauze Patient tolerated procedure well - Additional Wound Wound debrided: left groin Laterality: Left Operative Diagnosis: no debridement completed Assessment/Plan Active Problems (Last Reviewed 08/18/19 @ 08:00 by Kyree Dutta MD) Ulcer of left groin with fat layer exposed (Chronic) Pressure ulcer of coccygeal region, stage 3 (Chronic) Candidal intertrigo (Chronic) Assessment: ulcers of left groin. morbid obesity. Candidal intertrigo Plan: Samra's ulcers were evaluated today. Her left groin cluster is much improved. Will have her continue to use Fibracol to the ulcers of her left lower abdomen and coccyx and interdry sache to her abdominal fold area to absorb moisture and prevent ulcers from developing due to the heavy drainage. Diflucan will be continued once weekly to treat candidal intertrigo. Will have her take this weekly to every other week due to sweating and heat and her body habitus and chronic yeast which are causing her to develop ulcers. Encouraged her to increase protein intake and offload the areas of her ulcers. Advised to call with any fever, chills, increased drainage. F/u in 2 weeks.
[2019-11-08 13:18] VITALS: BP 105/59; PULSE 69; RESP 16; TEMP 36.4; BMI 50.1
--- NOTE | 2019-11-08 17:48 | PN.PCM_ITS ---
(1) Ulcer of left groin with fat layer exposed Status: Chronic Current Visit: Yes Code(s): L98.492 - Non-pressure chronic ulcer of skin of other sites with fat layer exposed (2) Pressure ulcer of coccygeal region, stage 3 Status: Resolved Current Visit: Yes Code(s): L89.153 - Pressure ulcer of sacral region, stage 3 (3) Candidal intertrigo Status: Chronic Current Visit: Yes Code(s): B37.2 - Candidiasis of skin and nail Type of Wound Date of Service: 11/08/19 Chief Complaint: ulcers of left groin and abdomen, pressure ulcer of coccyx History of Wound: Samra is a 73 yo woman who presents to the wound center for ulcers of left groin and abdomen referred by wound nurse at [facility]. She was recently hospitalized at [facility] for urosepsis. She was on IV antibiotics of Meropenem and Vancomycin. She is morbidly obese and has problems with candidal intertrigo and has ulcers that open frequently for several years. She was using towels to keep moisture from accumulating under her skin folds but this has been ineffective. She started using InstaDry sheets since discharge from the hospital which has improved the moisture in her folds. She has been using nystatin powder as well. She has been using bacitracin to the ulcer of her abdomen. She has an indwelling suprapubic catheter that is changed monthly. She has heavy drainage from her ulcers. She is wheelchair bound and has an aid that helps her daily for a few hours per day. She denies fever or chills. In May 2019, she reports that she has a chronic ulcer of her coccyx area that was previously surgically debrided that comes and goes and has gotten worse since she was in the group home in early 2018. Progress of Wound: Samra is here for follow up of ulcers of her left groin and coccyx. She is tolerating Fibracol dressings to left groin and continues to use Interdry strips to her groin area to wick away moisture. She has had improvement in erythema and decreased size of her ulcers. She has moderate to heavy drainage from the ulcers of her left groin. She is tolerating fibracol to her coccyx ulcer and has moderate to heavy drainage from this ulcer. Her mid- abdomen ulcer remains healed. She denies fever or chills or erythema or increased drainage from previous. - Physical Exam Vital Signs Temp Pulse Resp BP 97.6 F L 69 16 105/59 L 11/08/19 13:18 11/08/19 13:18 11/08/19 13:18 11/08/19 13:18 General: Alert, Oriented x3, Cooperative, No apparent distress HEENT: Atraumatic, Normocephalic Oral: Moist Mucosa Abdomen: Obese Extremities: Edema Skin: Ulcer/ Wound Wound Measurements and Assessment WC - Nurse 1 - General Ulcer Measurement Start: 10/25/19 13:20 Freq: Status: Active Protocol: Activity Type Activity Date Activity User E-Sign Co-Sign Detail Recorded Client Recorded Date Recorded By Document 11/08/19 13:18 MW [id number] 11/08/19 13:25 MW 11/08/19 13:18 Wound Center Nurse 1 [Ulcer Assessment] #3 Coccyx -Combined with other wound No -Current Size (cm) - Length 0.6 -Current Size (cm) - Width 0.5 -Current Size (cm) - Depth 0.2 -Total Square Cm 0.30 -Photo Taken No -Epithelialization None Present -Tunneling No -Undermining/Tunneling No -Circular Undermining No -Exudate Amt None Present -Wound Margin Thickened -Granulation Amt Small (1-33%) -Granulation Quality [place] -Slough/Fibrin Yes -Necrosis Amt Medium (34-66%) -Necrotic Tissue Type Adherent Slough -Structure Exposed N/A -Texture (Jessica-wound Skin Appearance) Assessed, Scarring -Moisture (Jessica-wound Skin Appearance Assessed, ) Maceration -Color (Jessica-wound Skin Appearance) No Abnormality, Assessed -Temperature (Jessica-wound Skin No Abnormality Appearance) (Pt Warm) -Tenderness on Palpation (Jessica-wound Yes Skin Appearance) -Ulcer Cleansing Rinsed/ Irrigated with Saline -Foul Odor after Cleansing No -Anesthetic Used 5% Lidocaine Gel #1 left abd fold cluster -Combined with other wound No -Current Size (cm) - Length 0.3 -Current Size (cm) - Width 1.3 -Current Size (cm) - Depth 0.1 -Total Square Cm 0.39 -Photo Taken No -Epithelialization Small 1-33% -Tunneling No -Undermining/Tunneling No -Circular Undermining No -Exudate Amt None Present -Wound Margin Flat & Intact -Granulation Amt Large (67-100%) -Granulation Quality [place] -Slough/Fibrin Yes -Necrosis Amt Small (1-33%) -Necrotic Tissue Type Adherent Slough -Structure Exposed N/A -Texture (Jessica-wound Skin Appearance) Assessed, Scarring -Moisture (Jessica-wound Skin Appearance No Abnormality, ) Assessed -Color (Jessica-wound Skin Appearance) No Abnormality, Assessed -Temperature (Jessica-wound Skin No Abnormality Appearance) (Pt Warm) -Tenderness on Palpation (Jessica-wound Yes Skin Appearance) -Ulcer Cleansing soap and water -Foul Odor after Cleansing No [Edema Assessment] -Lower Limb Edema Present No WC - Nurse 2 - General Ulcer CM Notes Start: 10/25/19 13:20 Freq: Status: Active Protocol: Activity Type Activity Date Activity User E-Sign Co-Sign Detail Recorded Client Recorded Date Recorded By Document 11/08/19 13:30 MW [id number] 11/08/19 13:41 MW 11/08/19 13:30 Wound Center Nurse 2 [Procedure/Treatment] #3 Coccyx -Time 13:30 -Correct Patient Yes -Correct Side, Site, Position Yes -Correct Procedure Yes -Procedure Performed Yes -Type of Procedure Debridement -Clinical Debridement Subcutaneous -Post Debridement Size (cm) - Length 0.6 -Post Debridement Size (cm) - Width 0.6 -Post Debridement Size (cm) - Depth 0.1 -Total Square Cm 0.36 -Wound/Ulcer Outcome Not Healed -Ulcer Cleansing Rinsed/ Irrigated with Saline -Foul Odor after Cleansing No -Bleeding Controlled with Pressure -Offloading No -Treatment Response Procedure Tolerated Well #1 left abd fold cluster -Time 13:30 -Correct Patient Yes -Correct Side, Site, Position Yes -Correct Procedure Yes -Procedure Performed No -Wound/Ulcer Outcome Not Healed -Ulcer Cleansing Not Cleansed -Foul Odor after Cleansing No -Bioengineered Tissue No -Bleeding Controlled with NA -Offloading No -Treatment Response Procedure Tolerated Well [See Physician Procedure note for Specifics] Pain Scale: 0-10 Numeric [Pain] -Is Patient Pain Free? Yes Psych/Mental Status: Normal Affect, Appropriate Debridement Note Post-Debridement Measurements/Treatment WC - Nurse 2 - General Ulcer CM Notes Start: 10/25/19 13:20 Freq: Status: Active Protocol: Activity Type Activity Date Activity User E-Sign Co-Sign Detail Recorded Client Recorded Date Recorded By Document 10/25/19 13:43 MW [id number] 10/25/19 13:58 MW Document 11/08/19 13:30 MW [id number] 11/08/19 13:41 MW 10/25/19 11/08/19 13:43 13:30 Wound Center Nurse 2 #3 Coccyx -Time 13:43 13:30 -Correct Patient Yes Yes -Correct Side, Site, Position Yes Yes -Correct Procedure Yes Yes -Procedure Performed Yes Yes -Type of Procedure Debridement Debridement -Clinical Debridement Subcutaneous Subcutaneous -Post Debridement Size (cm) - Length 0.4 0.6 -Post Debridement Size (cm) - Width 0.4 0.6 -Post Debridement Size (cm) - Depth 0.2 0.1 -Total Square Cm 0.16 0.36 -Wound/Ulcer Outcome Not Healed Not Healed -Ulcer Cleansing Rinsed/ Rinsed/ Irrigated with Irrigated with Saline Saline -Foul Odor after Cleansing No No -Bioengineered Tissue No -Bleeding Controlled with Pressure Pressure -Offloading No No -Treatment Response Procedure Procedure Tolerated Well Tolerated Well #1 left abd fold cluster -Time 13:44 13:30 -Correct Patient Yes Yes -Correct Side, Site, Position Yes Yes -Correct Procedure Yes Yes -Procedure Performed No No -Wound/Ulcer Outcome Not Healed Not Healed -Ulcer Cleansing Not Cleansed -Foul Odor after Cleansing No -Bioengineered Tissue No -Bleeding Controlled with NA -Offloading No -Treatment Response Procedure Tolerated Well Pain Scale: 0-10 Numeric Is Patient Pain Free? Yes Yes Wound debrided: letf abdominal fold ulcer Laterality: Left No debridement was completed today - no slough present - Additional Wound Wound debrided: coccyx Laterality: Not Applicable Wound Grade/Stage: Stage 3 Type of Debridement: Excisional debridement Anesthesia Used: 4% Lidocaine Solution, 5% Lidocaine Gel Depth: Down to and including healthy tissue, in the subcutaneous layer Percentage of wound debrided: 100 Instrument Used: 3mm curette Tissue Removed: yellow slough, devitalized tissue Severity: Fat Layer Exposed Amount of bleeding with debridement: Mild Bleeding Controlled with: Compression and gauze Patient tolerated procedure: Patient tolerated procedure well Assessment/Plan Active Problems (Last Updated 11/04/19 @ 10:19 by Nia Beyer) Ulcer of left groin with fat layer exposed (Chronic) Candidal intertrigo (Chronic) Assessment: ulcers of left groin. morbid obesity. Candidal intertrigo Plan: Pat's ulcers were evaluated today. Her left groin cluster is much impr johnna. Will have her continue to use Fibracol to the ulcers of her left lower abdomen and coccyx and interdry sache to her abdominal fold area to absorb moisture and prevent ulcers from developing due to the heavy drainage. Diflucan will be continued once weekly to treat candidal intertrigo. Will have her take this weekly to every other week due to sweating and heat and her body habitus and chronic yeast which are causing her to develop ulcers. Encouraged her to increase protein intake and offload the areas of her ulcers. Advised to call with any fever, chills, increased. drainage. Due to the chronic stage 3 pressure ulcer of her coccyx she would benefit from offloading mattress such as alternating pressure mattress. Will send prescription for this to [facility]. F/u in 2 weeks.
== END 2019-11-12 23:59 ==
LOC: WC 13:00
PROVIDERS: Family Provider Family Medicine; PCP Family Medicine; Visit Provider Family Medicine
DX: L89.153 Pressure ulcer of sacral region, stage 3 (principal); B37.2 Candidiasis of skin and nail; L98.492 Non-pressure chronic ulcer of skin of other sites with fat layer exposed; E66.01 Morbid (severe) obesity due to excess calories; Z68.43 Body mass index [BMI] 50.0-59.9, adult; Z71.3 Dietary counseling and surveillance; Z99.3 Dependence on wheelchair
CPT/HCPCS: 11042

== ENCOUNTER → 2019-12-02 10:50 | Outpatient (CLI) | payer MEDICARE, OTHER, SELFPAY ==
[2019-11-22 13:17] VITALS: BMI 50.1
[2019-12-02 12:33] LABS: Absolute Neutrophil Count 4.3 X10^3/uL (2.0-7.7); Basophil# 0.06 X10^3/uL; Basophil% 0.8 % (0-1); Eosinophil# 0.46 X10^3/uL; Eosinophils% 6.5 % (0-5); Hematocrit 38.6 % (37-47); Hemoglobin 11.5 g/dL (12.0-15.0); Lymphocyte % 22.5 % (19-41); Mean Corp Hgb Conc 29.8 g/dL (32-36); Mean Corpuscular Hgb 26.9 pg (27.0-32.0); Mean Corpuscular Volume 90.4 fL (81-99); Mean Platelet Vol. 10.6 fl (6.2-12.0); Monocyte# 0.65 X10^3/uL; Monocyte% 9.2 % (0-10); NRBC Flagged by Analyzer 0 % (0-5); Neutrophil # 4.29 X10^3/uL (2.7-7.7); Neutrophil % 60.4 % (47-70); Platelet Count 350 K/mm3 (150-450); RBC Distribution Width CV 17.4 % (11.6-14.6); RBC Distribution Width SD 57.2 fl (35.1-43.9); Red Blood Count 4.27 M/mm3 (4.2-5.4); White Blood Count 7.1 K/mm3 (4.4-11.0)
[2019-12-02 13:00] LABS: AST(SGOT) 9 U/L (15-37); Alanine Aminotransfer ALT/SGPT 18 U/L (13-56); Albumin, Serum 3.2 g/dL (3.2-5.0); Alkaline Phosphatase 62 U/L (45-117); Bilirubin, Direct 0.08 mg/dL (0.00-0.30); Cholesterol 166 mg/dL (200); Globulin 5.8 g/dL (2.2-4.2); High Density Lipoprotein 38 mg/dL; Triglycerides 240 mg/dL; Very Low Density Lipoprotein 48 mg/dL (5-40)
[2019-12-02 13:01] LABS: Ferritin 14 ng/mL (8-252); Iron 45 ug/dL (50-170)
== END ==
LOC: LAB.FUTURE 10:55 → MTLAB 10:57
PROVIDERS: Internal Medicine Cardiovascular Disease; PCP Family Medicine; Referring Provider Family Medicine; Visit Provider Family Medicine
DX: D64.9 Anemia, unspecified (principal); E78.5 Hyperlipidemia, unspecified
CPT/HCPCS: 36415; 80061; 80076; 82728; 83540; 85025

== ENCOUNTER → 2019-12-04 11:01 | Outpatient (CLI) | payer MEDICARE, OTHER, SELFPAY ==
[2019-11-22 13:17] VITALS: BMI 50.1
[2019-12-04 11:10] LABS: Mucous, Urine 0 SEEN /hpf (<or=2+)
[2019-12-04 12:35] LABS: Color, Urine Yellow (Yellow); Glucose, Dipstick Normal (Normal); Ketone-Dipstick Negative (Negative); Leukocyte Esterase-Dipstick 500 /ul (Negative); Nitrite-Dipstick Positive (Negative); Occult Blood-Urine 150 /ul (Negative); Protein-Dipstick 100 mg/dl (Negative); Specific Gravity, Urine 1.015 (1.002-1.030); Urine Bilirubin Dipstick Negative (Negative); Urine Clarity Sl. Cloudy (Clear); Urine Urobilinogen Normal (Normal)
[2019-12-04 12:46] LABS: Bacteria 2+ /hpf (None Seen); Red Blood Cells-Urine 10-25 SEEN /hpf (0-5); Squamous Epithelial Cells - UA 0-5 SEEN /hpf (5-10); White Blood Cells 50-100 SEEN /hpf (0-5)
[2019-12-06 09:20] LABS: Beta-2-Microglobulin, S 6.1 mg/L (0.6-2.4)
[2019-12-06 12:08] LABS: Immunoglobulin A 336 mg/dL (64-422); Immunoglobulin G 2402 mg/dL (700-1600); PROEL- A/G Ratio 0.7 (0.7-1.7); PROEL- Albumin 3.2 g/dL (2.9-4.4); PROEL- Alpha-1 Globulin 0.2 g/dL (0.0-0.4); PROEL- Alpha-2 Globulin 0.8 g/dL (0.4-1.0); PROEL- Gamma Globulin 2.2 g/dL (0.4-1.8); PROEL- Globulin, Total 4.4 g/dL (2.2-3.9); PROEL- TOTAL PROTEIN 7.6 g/dL (6.0-8.5); PROELU- Albumin, Urine 40.4 % (.); PROELU- Alpha-1-Globulin,Ur 1.5 % (.); PROELU- Alpha-2-Globulin,Ur 9.6 % (.); PROELU- Beta Globulin, Ur 21.3 % (.); PROELU- Gamma Globulin, Ur 27.2 % (.); Total Protein, Ur 74.9 mg/dL (Not Estab.)
[2019-12-06 13:22] LABS: Immunofixation Result, Serum Comment: (.); Immunoglobulin M 26 mg/dL (26-217)
== END ==
PROVIDERS: PCP Family Medicine; Visit Provider Family Medicine
DX: N39.0 Urinary tract infection, site not specified (principal); R82.90 Unspecified abnormal findings in urine; R77.1 Abnormality of globulin
CPT/HCPCS: 36415; 81001; 82232; 82784; 84165; 84166; 86334; 87086

== ENCOUNTER 2019-12-06 13:00 | Outpatient (RCR) | payer MEDICARE, OTHER, SELFPAY ==
[2019-11-13 00:31] VITALS: BP 105/59; PULSE 69; RESP 16; TEMP 36.4
[2019-11-22 13:17] VITALS: BP 98/54; PULSE 72; RESP 18; TEMP 36.4; BMI 50.1
--- NOTE | 2019-11-22 15:43 | PCM.WC.PN ---
(1) Ulcer of left groin with fat layer exposed Status: Chronic Current Visit: Yes Code(s): L98.492 - Non-pressure chronic ulcer of skin of other sites with fat layer exposed (2) Pressure ulcer of coccygeal region, stage 3 Status: Chronic Current Visit: Yes Code(s): L89.153 - Pressure ulcer of sacral region, stage 3 (3) Morbid obesity Status: Chronic Current Visit: Yes Code(s): E66.01 - Morbid (severe) obesity due to excess calories (4) Candidal intertrigo Status: Chronic Current Visit: Yes Code(s): B37.2 - Candidiasis of skin and nail Type of Wound Date of Service: 11/22/19 Chief Complaint: ulcers of left groin and abdomen, pressure ulcer of coccyx History of Wound: Samra is a 73 yo woman who presents to the wound center for ulcers of left groin and abdomen referred by wound nurse at [facility]. She was recently hospitalized at [facility] for urosepsis. She was on IV antibiotics of Meropenem and Vancomycin. She is morbidly obese and has problems with candidal intertrigo and has ulcers that open frequently for several years. She was using towels to keep moisture from accumulating under her skin folds but this has been ineffective. She started using InstaDry sheets since discharge from the hospital which has improved the moisture in her folds. She has been using nystatin powder as well. She has been using bacitracin to the ulcer of her abdomen. She has an indwelling suprapubic catheter that is changed monthly. She has heavy drainage from her ulcers. She is wheelchair bound and has an aid that helps her daily for a few hours per day. She denies fever or chills. In May 2019, she reports that she has a chronic ulcer of her coccyx area that was previously surgically debrided that comes and goes and has gotten worse since she was in the snf in early 2018. Progress of Wound: Samra is here for follow up of ulcers of her left groin and coccyx. She is tolerating Fibracol dressings to left groin and continues to use Interdry strips to her groin area to wick away moisture. She has had improvement in erythema and decreased size of her ulcers overall. This week she had diarrhea and has had increased pain to coccyx ulcer. Concern for infection. No increase in drainage. She has moderate to heavy drainage from the ulcers of her left groin. She is tolerating fibracol to her coccyx ulcer and has moderate to heavy drainage from this ulcer. Her mid-abdomen ulcer remains healed. She denies fever or chills or erythema or increased drainage from previous. - Physical Exam Vital Signs Temp Pulse Resp BP 97.5 F L 72 18 98/54 L 11/22/19 13:17 11/22/19 13:17 11/22/19 13:17 11/22/19 13:17 General: Alert, Oriented x3, Cooperative, No apparent distress HEENT: Atraumatic, Normocephalic Oral: Moist Mucosa Abdomen: Obese Extremities: Edema Skin: Ulcer/ Wound Wound Measurements and Assessment WC - Nurse 1 - General Ulcer Measurement Start: 11/22/19 13:16 Freq: Status: Active Protocol: Activity Type Activity Date Activity User E-Sign Co-Sign Detail Recorded Client Recorded Date Recorded By Document 11/22/19 13:17 RB [id number] 11/22/19 13:21 RB 11/22/19 13:17 Wound Center Nurse 1 [Ulcer Assessment] #3 Coccyx -Combined with other wound No -Current Size (cm) - Length 2.3 -Current Size (cm) - Width 1 -Current Size (cm) - Depth 0.2 -Total Square Cm 2.3 -Tunneling No -Undermining/Tunneling No -Circular Undermining No -Exudate Amt Small -Exudate Type Serosanguineous -Wound Margin Thickened -Granulation Amt Medium (34-66%) -Granulation Quality [place] -Slough/Fibrin Yes -Necrosis Amt Small (1-33%) -Necrotic Tissue Type Adherent Slough -Structure Exposed N/A -Texture (Jessica-wound Skin Appearance) Assessed -Moisture (Jessica-wound Skin Appearance Maceration ) -Color (Jessica-wound Skin Appearance) Assessed -Temperature (Jessica-wound Skin No Abnormality Appearance) (Pt Warm) -Tenderness on Palpation (Jessica-wound No Skin Appearance) -Ulcer Cleansing Wound Cleanser -Foul Odor after Cleansing No -Anesthetic Used 4% Lidocaine Solution #1 left abd fold cluster -Combined with other wound No -Current Size (cm) - Length 4.5 -Current Size (cm) - Width 0.6 -Current Size (cm) - Depth 0.1 -Total Square Cm 2.70 -Tunneling No -Undermining/Tunneling No -Circular Undermining No -Exudate Amt Small -Exudate Type Serosanguineous -Wound Margin Flat & Intact -Granulation Amt Large (67-100%) -Granulation Quality [place] -Slough/Fibrin Yes -Necrosis Amt Small (1-33%) -Necrotic Tissue Type Adherent Slough -Structure Exposed N/A -Texture (Jessica-wound Skin Appearance) Friable -Moisture (Jessica-wound Skin Appearance Assessed ) -Color (Jessica-wound Skin Appearance) Assessed -Temperature (Jessica-wound Skin No Abnormality Appearance) (Pt Warm) -Tenderness on Palpation (Jessica-wound No Skin Appearance) -Ulcer Cleansing Wound Cleanser -Foul Odor after Cleansing No -Anesthetic Used 4% Lidocaine Solution WC - Nurse 2 - General Ulcer CM Notes Start: 11/22/19 13:16 Freq: Status: Active Protocol: Activity Type Activity Date Activity User E-Sign Co-Sign Detail Recorded Client Recorded Date Recorded By Document 11/22/19 13:38 DV [id number] 11/22/19 13:51 DV 11/22/19 13:38 Wound Center Nurse 2 [Procedure/Treatment] #3 Coccyx -Time 13:42 -Correct Patient Yes -Correct Side, Site, Position Yes -Correct Procedure Yes -Procedure Performed Yes -Type of Procedure Debridement -Clinical Debridement Subcutaneous -Post Debridement Size (cm) - Length 0.7 -Post Debridement Size (cm) - Width 0.3 -Post Debridement Size (cm) - Depth 0.2 -Total Square Cm 0.21 -Wound/Ulcer Outcome Not Healed -Ulcer Cleansing Rinsed/ Irrigated with Saline -Foul Odor after Cleansing No -Bioengineered Tissue No -Bleeding Controlled with Pressure -Offloading No -Treatment Response Procedure Tolerated Well #1 left abd fold cluster -Time 13:41 -Correct Patient Yes -Correct Side, Site, Position Yes -Correct Procedure Yes -Procedure Performed Yes -Type of Procedure Debridement -Clinical Debridement Subcutaneous -Post Debridement Size (cm) - Length 3.5 -Post Debridement Size (cm) - Width 0.5 -Post Debridement Size (cm) - Depth 0.1 -Total Square Cm 1.75 -Wound/Ulcer Outcome Not Healed -Ulcer Cleansing Rinsed/ Irrigated with Saline -Foul Odor after Cleansing No -Bioengineered Tissue No -Bleeding Controlled with Pressure -Offloading No -Treatment Response Procedure Tolerated Well [See Physician Procedure note for Specifics] Pain Scale: 0-10 Numeric [Pain] -Is Patient Pain Free? Yes Psych/Mental Status: Normal Affect, Appropriate Debridement Note Post-Debridement Measurements/Treatment WC - Nurse 2 - General Ulcer CM Notes Start: 11/22/19 13:16 Freq: Status: Active Protocol: Activity Type Activity Date Activity User E-Sign Co-Sign Detail Recorded Client Recorded Date Recorded By Document 11/22/19 13:38 DV [id number] 11/22/19 13:51 DV 11/22/19 13:38 Wound Center Nurse 2 #3 Coccyx -Time 13:42 -Correct Patient Yes -Correct Side, Site, Position Yes -Correct Procedure Yes -Procedure Performed Yes -Type of Procedure Debridement -Clinical Debridement Subcutaneous -Post Debridement Size (cm) - Length 0.7 -Post Debridement Size (cm) - Width 0.3 -Post Debridement Size (cm) - Depth 0.2 -Total Square Cm 0.21 -Wound/Ulcer Outcome Not Healed -Ulcer Cleansing Rinsed/ Irrigated with Saline -Foul Odor after Cleansing No -Bioengineered Tissue No -Bleeding Controlled with Pressure -Offloading No -Treatment Response Procedure Tolerated Well #1 left abd fold cluster -Time 13:41 -Correct Patient Yes -Correct Side, Site, Position Yes -Correct Procedure Yes -Procedure Performed Yes -Type of Procedure Debridement -Clinical Debridement Subcutaneous -Post Debridement Size (cm) - Length 3.5 -Post Debridement Size (cm) - Width 0.5 -Post Debridement Size (cm) - Depth 0.1 -Total Square Cm 1.75 -Wound/Ulcer Outcome Not Healed -Ulcer Cleansing Rinsed/ Irrigated with Saline -Foul Odor after Cleansing No -Bioengineered Tissue No -Bleeding Controlled with Pressure -Offloading No -Treatment Response Procedure Tolerated Well Pain Scale: 0-10 Numeric Is Patient Pain Free? Yes Wound debrided: coccyx Laterality: Not Applicable Wound Grade/Stage: Stage 3 Type of Debridement: Excisional debridement Anesthesia Used: 4% Lidocaine Solution, 5% Lidocaine Gel Depth: Down to and including healthy tissue, in the subcutaneous layer Percentage of wound debrided: 100 Instrument Used: 5mm curette Tissue Removed: yellow slough, devitalized tissue Severity: Fat Layer Exposed Amount of bleeding with debridement: Mild Bleeding Controlled with: Compression and gauze Patient tolerated procedure well - Additional Wound Wound debrided: left abdominal fold cluster Laterality: Left Type of Debridement: Excisional debridement Anesthesia Used: 4% Lidocaine Solution, 5% Lidocaine Gel Depth: Down to and including healthy tissue, in the subcutaneous layer Percentage of wound debrided: 100 Instrument Used: - - dry gauze Tissue Removed: yellow slough Severity: Fat Layer Exposed Amount of bleeding with debridement: Mild Bleeding Controlled with: Compression and gauze Patient tolerated procedure: Patient tolerated procedure well Assessment/Plan Active Problems (Last Updated 11/04/19 @ 10:19 by Nia Beyer) Ulcer of left groin with fat layer exposed (Chronic) Pressure ulcer of coccygeal region, stage 3 (Chronic) Morbid obesity (Chronic) Candidal intertrigo (Chronic) Assessment: ulcers of left groin. morbid obesity. Candidal intertrigo Plan: Samra's ulcers were evaluated today. Her left groin cluster is stable. Will have her continue to use Fibracol to the ulcers of her left lower abdomen and coccyx and interdry sache to her abdominal fold area to absorb moisture and prevent ulcers from developing due to the heavy drainage. Due to increased pain and minimal improvement of her coccyx, would recommend treatment with Ciprofloxacin to treat for possible infection of her coccyx. If no improvement would perform wound culture. Diflucan will be continued once weekly to treat candidal intertrigo. Will have her take this weekly to every other week due to sweating and heat and her body habitus and chronic yeast which are causing her to develop ulcers. Encouraged her to increase protein intake and offload the areas of her ulcers. Advised to call with any fever, chills, increased. drainage. Due to the chronic stage 3 pressure ulcer of her coccyx she would benefit from offloading mattress such as alternating pressure mattress. Will send prescription for this to [facility]. F/u in 2 weeks.
[2019-12-06 13:18] VITALS: BP 125/64; PULSE 71; RESP 18; TEMP 36.5; BMI 50.1
--- NOTE | 2019-12-06 17:12 | PCM.WC.PN ---
(1) Ulcer of left groin with fat layer exposed Status: Chronic Current Visit: Yes Code(s): L98.492 - Non-pressure chronic ulcer of skin of other sites with fat layer exposed (2) Pressure ulcer of coccygeal region, stage 3 Status: Chronic Current Visit: Yes Code(s): L89.153 - Pressure ulcer of sacral region, stage 3 (3) Morbid obesity Status: Chronic Current Visit: Yes Code(s): E66.01 - Morbid (severe) obesity due to excess calories (4) Candidal intertrigo Status: Chronic Current Visit: Yes Code(s): B37.2 - Candidiasis of skin and nail Type of Wound Date of Service: 12/06/19 Chief Complaint: ulcers of left groin and abdomen, pressure ulcer of coccyx History of Wound: Samra is a 73 yo woman who presents to the wound center for ulcers of left groin and abdomen referred by wound nurse at [facility]. She was recently hospitalized at [facility] for urosepsis. She was on IV antibiotics of Meropenem and Vancomycin. She is morbidly obese and has problems with candidal intertrigo and has ulcers that open frequently for several years. She was using towels to keep moisture from accumulating under her skin folds but this has been ineffective. She started using InstaDry sheets since discharge from the hospital which has improved the moisture in her folds. She has been using nystatin powder as well. She has been using bacitracin to the ulcer of her abdomen. She has an indwelling suprapubic catheter that is changed monthly. She has heavy drainage from her ulcers. She is wheelchair bound and has an aid that helps her daily for a few hours per day. She denies fever or chills. In May 2019, she reports that she has a chronic ulcer of her coccyx area that was previously surgically debrided that comes and goes and has gotten worse since she was in the senior care in early 2018. Progress of Wound: Samra is here for follow up of ulcers of her left groin and coccyx. She is tolerating Fibracol dressings to left groin and continues to use Interdry strips to her groin area to wick away moisture. She has had improvement in erythema and decreased size of her ulcers of abdomen. She continues to have increased pain to coccyx ulcer. Concern for infection. Wound culture taken. No increase in drainage. She has moderate to heavy drainage from the ulcers of her left groin. She is tolerating fibracol to her coccyx ulcer and has moderate to heavy drainage from this ulcer. Her mid-abdomen ulcer remains healed. She denies fever or chills or erythema or increased drainage from previous. - Physical Exam Vital Signs Temp Pulse Resp BP 97.7 F L 71 18 125/64 H 12/06/19 13:18 12/06/19 13:18 12/06/19 13:18 12/06/19 13:18 General: Alert, Oriented x3, Cooperative, No apparent distress HEENT: Atraumatic, Normocephalic Oral: Moist Mucosa Abdomen: Soft, Non Tender, Obese Extremities: Edema Skin: Ulcer/ Wound Wound Measurements and Assessment WC - Nurse 1 - General Ulcer Measurement Start: 11/22/19 13:16 Freq: Status: Active Protocol: Activity Type Activity Date Activity User E-Sign Co-Sign Detail Recorded Client Recorded Date Recorded By Document 12/06/19 13:18 DL [id number] 12/06/19 13:28 DL 12/06/19 13:18 Wound Center Nurse 1 [Ulcer Assessment] #3 Coccyx -Current Size (cm) - Length 0.6 -Current Size (cm) - Width 2.6 -Current Size (cm) - Depth 0.6 -Total Square Cm 1.56 -Photo Taken No -Exudate Amt Small -Exudate Type Serosanguineous -Wound Margin Thickened -Granulation Amt Large (67-100%) -Granulation Quality [place] -Necrosis Amt Small (1-33%) -Necrotic Tissue Type Adherent Slough -Structure Exposed N/A -Texture (Jessica-wound Skin Appearance) Scarring -Moisture (Jessica-wound Skin Appearance Maceration ) -Color (Jessica-wound Skin Appearance) No Abnormality -Temperature (Jessica-wound Skin No Abnormality Appearance) (Pt Warm) -Tenderness on Palpation (Jessica-wound No Skin Appearance) -Ulcer Cleansing Wound Cleanser -Foul Odor after Cleansing No -Anesthetic Used 4% Lidocaine Solution #1 left abd fold cluster -Current Size (cm) - Length 0.1 -Current Size (cm) - Width 0.2 -Current Size (cm) - Depth 0.1 -Total Square Cm 0.02 -Photo Taken No -Exudate Amt None Present -Wound Margin Flat & Intact -Granulation Amt Large (67-100%) -Granulation Quality [place] -Necrosis Amt None Present (0 %) -Structure Exposed N/A -Texture (Jessica-wound Skin Appearance) No Abnormality -Moisture (Jessica-wound Skin Appearance No Abnormality ) -Color (Jessica-wound Skin Appearance) No Abnormality -Temperature (Jessica-wound Skin No Abnormality Appearance) (Pt Warm) -Tenderness on Palpation (Jessica-wound No Skin Appearance) -Ulcer Cleansing Wound Cleanser -Foul Odor after Cleansing No -Anesthetic Used 4% Lidocaine Solution WC - Nurse 2 - General Ulcer CM Notes Start: 11/22/19 13:16 Freq: Status: Active Protocol: Activity Type Activity Date Activity User E-Sign Co-Sign Detail Recorded Client Recorded Date Recorded By Document 12/06/19 13:38 MW [id number] 12/06/19 13:53 MW 12/06/19 13:38 Wound Center Nurse 2 [Procedure/Treatment] #3 Coccyx -Time 13:38 -Correct Patient Yes -Correct Side, Site, Position Yes -Correct Procedure Yes -Procedure Performed Yes -Type of Procedure Debridement -Clinical Debridement Subcutaneous -Post Debridement Size (cm) - Length 0.4 -Post Debridement Size (cm) - Width 2.5 -Post Debridement Size (cm) - Depth 0.3 -Total Square Cm 1.00 -Wound/Ulcer Outcome Not Healed -Ulcer Cleansing Rinsed/ Irrigated with Saline -Foul Odor after Cleansing No -Bioengineered Tissue No -Bleeding Controlled with Pressure -Offloading No -Treatment Response Procedure Tolerated Well #1 left abd fold cluster -Time 13:38 -Correct Patient Yes -Correct Side, Site, Position Yes -Correct Procedure Yes -Procedure Performed No -Post Debridement Size (cm) - Length 0.2 -Post Debridement Size (cm) - Width 0.1 -Post Debridement Size (cm) - Depth 0.1 -Total Square Cm 0.02 -Wound/Ulcer Outcome Not Healed -Ulcer Cleansing Rinsed/ Irrigated with Saline -Foul Odor after Cleansing No -Bioengineered Tissue No -Bleeding Controlled with NA -Offloading No -Treatment Response Procedure Tolerated Well [See Physician Procedure note for Specifics] Pain Scale: 0-10 Numeric [Pain] -Is Patient Pain Free? Yes Psych/Mental Status: Normal Affect, Appropriate Debridement Note Post-Debridement Measurements/Treatment ÁLVARO - Nurse 2 - General Ulcer CM Notes Start: 11/22/19 13:16 Freq: Status: Active Protocol: Activity Type Activity Date Activity User E-Sign Co-Sign Detail Recorded Client Recorded Date Recorded By Document 11/22/19 13:38 DV [id number] 11/22/19 13:51 DV Document 12/06/19 13:38 MW [id number] 12/06/19 13:53 MW 11/22/19 12/06/19 13:38 13:38 Wound Center Nurse 2 #3 Coccyx -Time 13:42 13:38 -Correct Patient Yes Yes -Correct Side, Site, Position Yes Yes -Correct Procedure Yes Yes -Procedure Performed Yes Yes -Type of Procedure Debridement Debridement -Clinical Debridement Subcutaneous Subcutaneous -Post Debridement Size (cm) - Length 0.7 0.4 -Post Debridement Size (cm) - Width 0.3 2.5 -Post Debridement Size (cm) - Depth 0.2 0.3 -Total Square Cm 0.21 1.00 -Wound/Ulcer Outcome Not Healed Not Healed -Ulcer Cleansing Rinsed/ Rinsed/ Irrigated with Irrigated with Saline Saline -Foul Odor after Cleansing No No -Bioengineered Tissue No No -Bleeding Controlled with Pressure Pressure -Offloading No No -Treatment Response Procedure Procedure Tolerated Well Tolerated Well #1 left abd fold cluster -Time 13:41 13:38 -Correct Patient Yes Yes -Correct Side, Site, Position Yes Yes -Correct Procedure Yes Yes -Procedure Performed Yes No -Type of Procedure Debridement -Clinical Debridement Subcutaneous -Post Debridement Size (cm) - Length 3.5 0.2 -Post Debridement Size (cm) - Width 0.5 0.1 -Post Debridement Size (cm) - Depth 0.1 0.1 -Total Square Cm 1.75 0.02 -Wound/Ulcer Outcome Not Healed Not Healed -Ulcer Cleansing Rinsed/ Rinsed/ Irrigated with Irrigated with Saline Saline -Foul Odor after Cleansing No No -Bioengineered Tissue No No -Bleeding Controlled with Pressure NA -Offloading No No -Treatment Response Procedure Procedure Tolerated Well Tolerated Well Pain Scale: 0-10 Numeric Is Patient Pain Free? Yes Yes Wound debrided: coccyx Laterality: Not Applicable Wound Grade/Stage: Stage 3 Type of Debridement: Excisional debridement Anesthesia Used: 4% Lidocaine Solution, 5% Lidocaine Gel Depth: Down to and including healthy tissue, in the subcutaneous layer Percentage of wound debrided: 100 Instrument Used: 3mm curette Tissue Removed: yellow slough, devitalized tissue Severity: Fat Layer Exposed Amount of bleeding with debridement: Mild Bleeding Controlled with: Compression and gauze Patient tolerated procedure well - Additional Wound Wound debrided: left lower abdominal fold cluster Laterality: Left Type of Debridement: Selective debridement Anesthesia Used: 4% Lidocaine Solution Depth: Down to and including healthy tissue Percentage of wound debrided: 100 Tissue Removed: slough Severity: Fat Layer Exposed Amount of bleeding with debridement: Mild Bleeding Controlled with: Compression and gauze Patient tolerated procedure: Patient tolerated procedure well Assessment/Plan Active Problems (Last Updated 11/04/19 @ 10:19 by Nia Beyer) Ulcer of left groin with fat layer exposed (Chronic) Pressure ulcer of coccygeal region, stage 3 (Chronic) Morbid obesity (Chronic) Candidal intertrigo (Chronic) Assessment: ulcers of left groin. morbid obesity. Candidal intertrigo Plan: Samra's ulcers were evaluated today. Her left groin cluster is smaller. Will have her continue to use Fibracol to the ulcers of her left lower abdomen and coccyx and interdry sache to her abdominal fold area to absorb moisture and prevent ulcers from developing due to the heavy drainage. Due to increased pain and worsening of her coccyx, we did perform wound culture today. Diflucan will be continued once weekly to treat candidal intertrigo. Will have her take this weekly to every other week due to sweating and heat and her body habitus and chronic yeast which are causing her to develop ulcers. Encouraged her to increase protein intake and offload the areas of her ulcers. Advised to call with any fever, chills, increased. drainage. Due to the chronic stage 3 pressure ulcer of her coccyx she would benefit from offloading mattress such as alternating pressure mattress. Will send prescription for this to [facility]. F/u in 2 weeks.
== END 2019-12-13 23:59 ==
LOC: WC 13:00
PROVIDERS: Family Provider Family Medicine; PCP Family Medicine; Referring Provider Family Medicine; Visit Provider Family Medicine
DX: L89.153 Pressure ulcer of sacral region, stage 3 (principal); E66.01 Morbid (severe) obesity due to excess calories; Z68.43 Body mass index [BMI] 50.0-59.9, adult; B37.2 Candidiasis of skin and nail; L98.492 Non-pressure chronic ulcer of skin of other sites with fat layer exposed; Z99.3 Dependence on wheelchair
CPT/HCPCS: 11042; 87070; 87075; 87077; 87186; 87205

== ENCOUNTER 2020-01-03 09:06 | Outpatient (RCR) | payer MEDICARE, OTHER, SELFPAY ==
[2019-12-14 00:34] VITALS: BP 125/64; PULSE 71; RESP 18; TEMP 36.5
[2020-01-03 13:07] VITALS: BP 114/69; PULSE 79; RESP 18; TEMP 36.1; BMI 50.1
--- NOTE | 2020-01-03 16:27 | PN.PCM_ITS ---
(1) Ulcer of abdomen wall with fat layer exposed Status: Chronic Current Visit: Yes Code(s): L98.492 - Non-pressure chronic ulcer of skin of other sites with fat layer exposed (2) Pressure ulcer of coccygeal region, stage 3 Status: Chronic Current Visit: Yes Code(s): L89.153 - Pressure ulcer of sacral region, stage 3 (3) Morbid obesity Status: Chronic Current Visit: Yes Code(s): E66.01 - Morbid (severe) obesity due to excess calories Type of Wound Date of Service: 01/03/20 Chief Complaint: ulcers of left groin and abdomen, pressure ulcer of coccyx History of Wound: Samra is a 73 yo woman who presents to the wound center for ulcers of left groin and abdomen referred by wound nurse at [facility]. She was recently hospitalized at [facility] for urosepsis. She was on IV antibiotics of Meropenem and Vancomycin. She is morbidly obese and has problems with candidal intertrigo and has ulcers that open frequently for several years. She was using towels to keep moisture from accumulating under her skin folds but this has been ineffective. She started using InstaDry sheets since discharge from the hospital which has improved the moisture in her folds. She has been using nystatin powder as well. She has been using bacitracin to the ulcer of her abdomen. She has an indwelling suprapubic catheter that is changed monthly. She has heavy drainage from her ulcers. She is wheelchair bound and has an aid that helps her daily for a few hours per day. She denies fever or chills. In May 2019, she reports that she has a chronic ulcer of her coccyx area that was previously surgically debrided that comes and goes and has gotten worse since [facility]. Progress of Wound: Samra is here for follow up of ulcers of her left groin and coccyx. She is tolerating Fibracol dressings to left groin and continues to use Interdry strips to her groin area to wick away moisture. She has had improvement in erythema and decreased size of her ulcers of abdomen. She continues to have increased pain to coccyx ulcer. Wound culture was positive for anaerobic bacteria. No increase in drainage. She has moderate to heavy drainage from the ulcers of her left groin. She is tolerating fibracol to her coccyx ulcer and has moderate to heavy drainage from this ulcer. Her mid-abdomen ulcer remains healed. She denies fever or chills or erythema or increased drainage from previous. - Physical Exam Vital Signs Temp Pulse Resp BP 96.9 F L 79 18 114/69 01/03/20 13:07 01/03/20 13:07 01/03/20 13:07 01/03/20 13:07 General: Alert, Oriented x3, Cooperative, No apparent distress HEENT: Atraumatic, Normocephalic Oral: Moist Mucosa Abdomen: Obese Extremities: Edema Skin: Ulcer/ Wound Wound Measurements and Assessment WC - Nurse 1 - General Ulcer Measurement Start: 01/03/20 13:07 Freq: Status: Active Protocol: Activity Type Activity Date Activity User E-Sign Co-Sign Detail Recorded Client Recorded Date Recorded By Document 01/03/20 13:07 RB [id number] 01/03/20 13:15 RB 01/03/20 13:07 Wound Center Nurse 1 [Ulcer Assessment] #3 Coccyx -Combined with other wound No -Current Size (cm) - Length 0.6 -Current Size (cm) - Width 2.7 -Current Size (cm) - Depth 0.5 -Total Square Cm 1.62 -Tunneling No -Undermining/Tunneling No -Circular Undermining No -Exudate Amt Small -Exudate Type Serosanguineous -Wound Margin Thickened -Granulation Amt Medium (34-66%) -Granulation Quality [place] -Slough/Fibrin Yes -Necrosis Amt Medium (34-66%) -Necrotic Tissue Type Adherent Slough -Structure Exposed N/A -Texture (Jessica-wound Skin Appearance) Scarring -Moisture (Jessica-wound Skin Appearance Assessed ) -Color (Jessica-wound Skin Appearance) Assessed -Temperature (Jessica-wound Skin No Abnormality Appearance) (Pt Warm) -Tenderness on Palpation (Jessica-wound No Skin Appearance) -Ulcer Cleansing Wound Cleanser -Foul Odor after Cleansing No -Anesthetic Used 5% Lidocaine Gel #1 left abd fold cluster -Combined with other wound No -Current Size (cm) - Length 0.1 -Current Size (cm) - Width 0.1 -Current Size (cm) - Depth 0.1 -Total Square Cm 0.01 -Tunneling No -Undermining/Tunneling No -Circular Undermining No -Exudate Amt Small -Exudate Type Serosanguineous -Wound Margin Flat & Intact -Granulation Amt Large (67-100%) -Granulation Quality [place] -Slough/Fibrin Yes -Necrosis Amt Medium (34-66%) -Necrotic Tissue Type Adherent Slough -Structure Exposed N/A -Texture (Jessica-wound Skin Appearance) Assessed, Excoriation -Moisture (Jessica-wound Skin Appearance Assessed ) -Temperature (Jessica-wound Skin No Abnormality Appearance) (Pt Warm) -Tenderness on Palpation (Jessica-wound No Skin Appearance) -Ulcer Cleansing Wound Cleanser -Foul Odor after Cleansing No -Anesthetic Used 4% Lidocaine Solution WC - Nurse 2 - General Ulcer CM Notes Start: 01/03/20 13:07 Freq: Status: Active Protocol: Activity Type Activity Date Activity User E-Sign Co-Sign Detail Recorded Client Recorded Date Recorded By Document 01/03/20 13:36 DV [id number] 01/03/20 13:42 DV 01/03/20 13:36 Wound Center Nurse 2 [Procedure/Treatment] #3 Coccyx -Time 13:37 -Correct Patient Yes -Correct Side, Site, Position Yes -Correct Procedure Yes -Procedure Performed Yes -Type of Procedure Debridement -Clinical Debridement Subcutaneous -Post Debridement Size (cm) - Length 0.5 -Post Debridement Size (cm) - Width 2.5 -Post Debridement Size (cm) - Depth 0.3 -Total Square Cm 1.25 -Wound/Ulcer Outcome Failed Flap -Ulcer Cleansing Rinsed/ Irrigated with Saline -Foul Odor after Cleansing No -Bioengineered Tissue No -Bleeding Controlled with Pressure -Offloading No -Treatment Response Procedure Tolerated Well #1 left abd fold cluster -Time 13:40 -Correct Patient Yes -Correct Side, Site, Position Yes -Correct Procedure Yes -Procedure Performed Yes -Type of Procedure Debridement -Clinical Debridement Subcutaneous -Post Debridement Size (cm) - Length 2.0 -Post Debridement Size (cm) - Width 0.5 -Post Debridement Size (cm) - Depth 0.1 -Total Square Cm 1.00 -Wound/Ulcer Outcome Not Healed -Ulcer Cleansing Rinsed/ Irrigated with Saline -Foul Odor after Cleansing No -Bioengineered Tissue No -Bleeding Controlled with Pressure -Treatment Response Procedure Tolerated Well [See Physician Procedure note for Specifics] Pain Scale: 0-10 Numeric [Pain] -Is Patient Pain Free? Yes Psych/Mental Status: Normal Affect, Appropriate Debridement Note Post-Debridement Measurements/Treatment WC - Nurse 2 - General Ulcer CM Notes Start: 01/03/20 13:07 Freq: Status: Active Protocol: Activity Type Activity Date Activity User E-Sign Co-Sign Detail Recorded Client Recorded Date Recorded By Document 01/03/20 13:36 DV [id number] 01/03/20 13:42 DV 01/03/20 13:36 Wound Center Nurse 2 #3 Coccyx -Time 13:37 -Correct Patient Yes -Correct Side, Site, Position Yes -Correct Procedure Yes -Procedure Performed Yes -Type of Procedure Debridement -Clinical Debridement Subcutaneous -Post Debridement Size (cm) - Length 0.5 -Post Debridement Size (cm) - Width 2.5 -Post Debridement Size (cm) - Depth 0.3 -Total Square Cm 1.25 -Wound/Ulcer Outcome Failed Flap -Ulcer Cleansing Rinsed/ Irrigated with Saline -Foul Odor after Cleansing No -Bioengineered Tissue No -Bleeding Controlled with Pressure -Offloading No -Treatment Response Procedure Tolerated Well #1 left abd fold cluster -Time 13:40 -Correct Patient Yes -Correct Side, Site, Position Yes -Correct Procedure Yes -Procedure Performed Yes -Type of Procedure Debridement -Clinical Debridement Subcutaneous -Post Debridement Size (cm) - Length 2.0 -Post Debridement Size (cm) - Width 0.5 -Post Debridement Size (cm) - Depth 0.1 -Total Square Cm 1.00 -Wound/Ulcer Outcome Not Healed -Ulcer Cleansing Rinsed/ Irrigated with Saline -Foul Odor after Cleansing No -Bioengineered Tissue No -Bleeding Controlled with Pressure -Treatment Response Procedure Tolerated Well Pain Scale: 0-10 Numeric Is Patient Pain Free? Yes Wound debrided: coccyx Laterality: Not Applicable Wound Grade/Stage: Stage 3 Type of Debridement: Excisional debridement Anesthesia Used: 4% Lidocaine Solution Depth: Down to and including healthy tissue, in the subcutaneous layer Percentage of wound debrided: 100 Instrument Used: 3mm curette Tissue Removed: yellow slough, devitalized tissue Severity: Fat Layer Exposed Amount of bleeding with debridement: Mild Bleeding Controlled with: Compression and gauze Patient tolerated procedure well - Additional Wound Wound debrided: left groin ulcer Laterality: Left Wound Grade/Stage: stage 2 Type of Debridement: Excisional debridement Anesthesia Used: 4% Lidocaine Solution, 5% Lidocaine Gel Depth: Down to and including healthy tissue, in the subcutaneous layer Percentage of wound debrided: 100 Instrument Used: - - gauze Tissue Removed: yellow slough, devitalized tissue Severity: Fat Layer Exposed Amount of bleeding with debridement: Mild Bleeding Controlled with: Compression and gauze Patient tolerated procedure: Patient tolerated procedure well Assessment/Plan Active Problems (Last Updated 11/04/19 @ 10:19 by Nia Beyer) Ulcer of abdomen wall with fat layer exposed (Chronic) Pressure ulcer of coccygeal region, stage 3 (Chronic) Morbid obesity (Chronic) Assessment: ulcers of left groin. morbid obesity. Candidal intertrigo Plan: Samra's ulcers were evaluated today. Her left groin cluster is smaller. Will have her continue to use Fibracol to the ulcers of her left lower abdomen and coccyx and interdry sache to her abdominal fold area to absorb moisture and prevent ulcers from developing due to the heavy drainage. Will start her on metronidazole for positive wound culture. Diflucan will be continued once weekly to treat candidal intertrigo. Will have her take this weekly to every other week due to sweating and heat and her body habitus and chronic yeast which are causing her to develop ulcers. Encouraged her to increase protein intake and offload the areas of her ulcers. Advised to call with any fever, chills, increased. drainage. Due to the chronic stage 3 pressure ulcer of her coccyx she would benefit from offloading mattress such as alternating pressure mattress. Will send prescription for this to [facility] [place]. F/u in 2 weeks.
== END 2020-01-11 23:59 ==
LOC: WC 09:06
PROVIDERS: Family Provider Family Medicine; PCP Internal Medicine; Referring Provider Family Medicine; Visit Provider Family Medicine
DX: L89.153 Pressure ulcer of sacral region, stage 3 (principal); L98.492 Non-pressure chronic ulcer of skin of other sites with fat layer exposed; B37.2 Candidiasis of skin and nail; E66.01 Morbid (severe) obesity due to excess calories; Z99.3 Dependence on wheelchair
CPT/HCPCS: 11042

== ENCOUNTER 2020-01-13 13:43 | Outpatient (RCR) | payer MEDICARE, OTHER, SELFPAY ==
--- NOTE | 2020-01-13 15:49 | HP.PTEVAL ---
Patient's Visit Information ISELA CAMARENA is a 74 year old F referred to Physical Therapy by Noy Chakraborty MD with a diagnosis of Morbidity, LBP. Date of Evaluation: 01/13/20 Physical Therapist: Esau Reed PT, ATC - Visit Plan Frequency: 1x/Week Duration: 1 Week Plan: Pt evaluated for wheelchair. Discharge - Subjective Findings: Pt reports she has been wheelchair bound for about 10 years. Pt reports she septicemia at that time and has had to be in a wheelchair since. Pt reports she is not able to perform sit to stand transfers, but is not able to ambulate at all. Pt reports she has been in this current wheelchair for 10 years, but it is starting to become in poor condition and she needs a new chair for community ambulation. Pt notes she has had a history of pressure ulcers and notes that a new wheelchair will have a much better cusion for her to sit on. Pt also notes a Hx of LBP for several years. Pt reports she also has B shoulder pain and notes she is unable to lift her arms over her head against gravity. Pt notes good sensation in her feet. - Pain Overall body pain Pain Intensity (Out of 10): 5 - Objective Neuro: B LE sensation is WNL to light touch. B Patellar reflex= 1/3. MMT: B UE's are grossly 2/5 throughout available range. B LE's are grossly 4-/5 throughout. Transfers: Pt is able to perform a sit to stand transfer with a grab bar, but is only able to stand for 1 second until having to sit. Gait: Pt is unable to ambulate at this time. ROM: B LE's are WFL this date - Goals Goal 1:: NA - Rehabilitation Potential Physical Therapy Diagnosis: Pt is unable to perform safe transfers or ambulation secondary to LBP and morbid obesity Rehabilitation Potential: Fair - Anticipated Interventions Patient/Client Instruction: Educate patient on: Condition, Plan of Care For the Purpose of:: To improve ability to perform ADL's Thank you for the opportunity to evaluate your patient. For Medicare and Medicare HMO plans, please review the plan of care and approve it. It will need to be FAXED BACK to us at [phone] for Medicare purposes. For Medicare only, by signing this I certify the plan of care. Please let me know if there are questions or concerns regarding this plan of care. Physician Signature: Date:
== END 2020-01-13 19:00 | disposition home or self-care (01) ==
LOC: PT 13:43
PROVIDERS: PCP Internal Medicine; Referring Provider Internal Medicine; Visit Provider Internal Medicine
DX: M48.062 Spinal stenosis, lumbar region with neurogenic claudication (principal); E66.01 Morbid (severe) obesity due to excess calories
CPT/HCPCS: 97161

== ENCOUNTER 2020-02-07 13:00 | Outpatient (RCR) | payer MEDICARE, OTHER, SELFPAY ==
[2020-01-12 00:28] VITALS: BP 114/69; PULSE 79; RESP 18; TEMP 36.1
[2020-01-17 13:02] VITALS: BP 113/57; PULSE 69; RESP 16; TEMP 35.9; BMI 50.1
--- NOTE | 2020-01-17 16:56 | PN.PCM_ITS ---
(1) Ulcer of left groin with fat layer exposed Status: Chronic Current Visit: Yes Code(s): L98.492 - Non-pressure chronic ulcer of skin of other sites with fat layer exposed (2) Pressure ulcer of coccygeal region, stage 3 Status: Chronic Current Visit: Yes Code(s): L89.153 - Pressure ulcer of sacral region, stage 3 (3) Debility Status: Chronic Current Visit: Yes Code(s): R53.81 - Other malaise (4) Candidal intertrigo Status: Chronic Current Visit: Yes Code(s): B37.2 - Candidiasis of skin and nail Type of Wound Date of Service: 01/17/20 Chief Complaint: ulcers of left groin and abdomen, pressure ulcer of coccyx History of Wound: Samra is a 73 yo woman who presents to the wound center for ulcers of left groin and abdomen referred by wound nurse at [facility]. She was recently hospitalized at [facility] for urosepsis. She was on IV antibiotics of Meropenem and Vancomycin. She is morbidly obese and has problems with candidal intertrigo and has ulcers that open frequently for several years. She was using towels to keep moisture from accumulating under her skin folds but this has been ineffective. She started using InstaDry sheets since discharge from the hospital which has improved the moisture in her folds. She has been using nystatin powder as well. She has been using bacitracin to the ulcer of her abdomen. She has an indwelling suprapubic catheter that is changed monthly. She has heavy drainage from her ulcers. She is wheelchair bound and has an aid that helps her daily for a few hours per day. She denies fever or chills. In May 2019, she reports that she has a chronic ulcer of her coccyx area that was previously surgically debrided that comes and goes and has gotten worse since she was in the [facility] in early 2018. Progress of Wound: Samra is here for follow up of ulcers of her left groin and coccyx. She is tolerating Fibracol dressings to left groin and continues to use Interdry strips to her groin area to wick away moisture. She has had improvement in erythema and decreased size of her ulcers of abdomen/groin but it has increased perspiration and moisture to the area. She continues to have increased pain to coccyx ulcer. Wound culture was positive for anaerobic bacteria. No increase in drainage. She has moderate to heavy drainage from the ulcers of her left groin. She is tolerating fibracol to her coccyx ulcer and has moderate to heavy drainage from this ulcer. Her mid-abdomen ulcer remains healed. She denies fever or chills or erythema or increased drainage from previous. - Physical Exam Vital Signs Temp Pulse Resp BP 96.7 F L 69 16 113/57 L 01/17/20 13:02 01/17/20 13:02 01/17/20 13:02 01/17/20 13:02 General: Alert, Oriented x3, Cooperative, No apparent distress HEENT: Atraumatic, Normocephalic Oral: Moist Mucosa Abdomen: Obese Extremities: Edema Skin: Ulcer/ Wound Wound Measurements and Assessment WC - Nurse 1 - General Ulcer Measurement Start: 01/17/20 13:02 Freq: Status: Active Protocol: Activity Type Activity Date Activity User E-Sign Co-Sign Detail Recorded Client Recorded Date Recorded By Document 01/17/20 13:02 [facility] [id number] 01/17/20 13:10 [facility] 01/17/20 13:02 Wound Center Nurse 1 [Ulcer Assessment] #3 Coccyx -Combined with other wound No -Current Size (cm) - Length 1 -Current Size (cm) - Width 2.5 -Current Size (cm) - Depth 0.3 -Total Square Cm 2.5 -Photo Taken No -Epithelialization None Present -Tunneling No -Undermining/Tunneling No -Circular Undermining No -Exudate Amt Small -Exudate Type Serosanguineous -Wound Margin Thickened & Rolled Under -Granulation Amt Large (67-100%) -Granulation Quality Red -Slough/Fibrin Yes -Necrosis Amt Small (1-33%) -Necrotic Tissue Type Adherent Slough -Texture (Jessica-wound Skin Appearance) Assessed, Scarring -Moisture (Jessica-wound Skin Appearance Assessed, ) Maceration -Color (Jessica-wound Skin Appearance) Assessed, Erythema -Temperature (Jessica-wound Skin No Abnormality Appearance) (Pt Warm) -Tenderness on Palpation (Jessica-wound Yes Skin Appearance) -Ulcer Cleansing Rinsed/ Irrigated with Saline -Foul Odor after Cleansing No -Anesthetic Used 4% Lidocaine Solution #1 left abd fold cluster -Combined with other wound No -Current Size (cm) - Length 0.1 -Current Size (cm) - Width 0.1 -Current Size (cm) - Depth 0.1 -Total Square Cm 0.01 -Photo Taken No -Epithelialization Small 1-33% -Tunneling No -Undermining/Tunneling No -Circular Undermining No -Exudate Amt Small -Exudate Type Sanguineous -Wound Margin Flat & Intact -Granulation Amt Large (67-100%) -Granulation Quality Red -Slough/Fibrin No -Necrosis Amt None Present (0 %) -Texture (Jessica-wound Skin Appearance) Assessed, Excoriation -Moisture (Jessica-wound Skin Appearance Assessed ) -Color (Jessica-wound Skin Appearance) Assessed, Erythema -Temperature (Jessica-wound Skin No Abnormality Appearance) (Pt Warm) -Tenderness on Palpation (Jessica-wound Yes Skin Appearance) -Ulcer Cleansing soapy water -Foul Odor after Cleansing No -Anesthetic Used 4% Lidocaine Solution WC - Nurse 2 - General Ulcer CM Notes Start: 01/17/20 13:02 Freq: Status: Active Protocol: Activity Type Activity Date Activity User E-Sign Co-Sign Detail Recorded Client Recorded Date Recorded By Document 01/17/20 13:18 MW [id number] 01/17/20 13:33 MW 01/17/20 13:18 Wound Center Nurse 2 [Procedure/Treatment] #3 Coccyx -Time 13:18 -Correct Patient Yes -Correct Side, Site, Position Yes -Correct Procedure Yes -Procedure Performed Yes -Type of Procedure Debridement -Clinical Debridement Subcutaneous -Post Debridement Size (cm) - Length 0.9 -Post Debridement Size (cm) - Width 2.7 -Post Debridement Size (cm) - Depth 0.3 -Total Square Cm 2.43 -Wound/Ulcer Outcome Not Healed -Ulcer Cleansing Rinsed/ Irrigated with Saline -Foul Odor after Cleansing No -Bioengineered Tissue No -Bleeding Controlled with Pressure -Offloading No -Treatment Response Procedure Tolerated Well #1 left abd fold cluster -Time 13:18 -Correct Patient Yes -Correct Side, Site, Position Yes -Correct Procedure Yes -Procedure Performed No -Wound/Ulcer Outcome Not Healed -Ulcer Cleansing Not Cleansed -Foul Odor after Cleansing No -Bioengineered Tissue No -Bleeding Controlled with NA -Offloading No -Treatment Response Procedure Tolerated Well [See Physician Procedure note for Specifics] Pain Scale: 0-10 Numeric [Pain] -Is Patient Pain Free? Yes Psych/Mental Status: Normal Affect, Appropriate Debridement Note Post-Debridement Measurements/Treatment WC - Nurse 2 - General Ulcer CM Notes Start: 01/17/20 13:02 Freq: Status: Active Protocol: Activity Type Activity Date Activity User E-Sign Co-Sign Detail Recorded Client Recorded Date Recorded By Document 01/17/20 13:18 MW [id number] 01/17/20 13:33 MW 01/17/20 13:18 Wound Center Nurse 2 #3 Coccyx -Time 13:18 -Correct Patient Yes -Correct Side, Site, Position Yes -Correct Procedure Yes -Procedure Performed Yes -Type of Procedure Debridement -Clinical Debridement Subcutaneous -Post Debridement Size (cm) - Length 0.9 -Post Debridement Size (cm) - Width 2.7 -Post Debridement Size (cm) - Depth 0.3 -Total Square Cm 2.43 -Wound/Ulcer Outcome Not Healed -Ulcer Cleansing Rinsed/ Irrigated with Saline -Foul Odor after Cleansing No -Bioengineered Tissue No -Bleeding Controlled with Pressure -Offloading No -Treatment Response Procedure Tolerated Well #1 left abd fold cluster -Time 13:18 -Correct Patient Yes -Correct Side, Site, Position Yes -Correct Procedure Yes -Procedure Performed No -Wound/Ulcer Outcome Not Healed -Ulcer Cleansing Not Cleansed -Foul Odor after Cleansing No -Bioengineered Tissue No -Bleeding Controlled with NA -Offloading No -Treatment Response Procedure Tolerated Well Pain Scale: 0-10 Numeric Is Patient Pain Free? Yes Wound debrided: left abdominal fold cluster Laterality: Left No debridement was completed today - - no slough present - Additional Wound Wound debrided: coccyx Wound Grade/Stage: Stage 3 Type of Debridement: Excisional debridement Anesthesia Used: 4% Lidocaine Solution, 5% Lidocaine Gel Depth: Down to and including healthy tissue, in the subcutaneous layer, to muscle Percentage of wound debrided: 100 Instrument Used: 5mm curette Tissue Removed: yellow slough, devitalized tissue Severity: Fat Layer Exposed Amount of bleeding with debridement: Mild Bleeding Controlled with: Compression and gauze Patient tolerated procedure: Patient tolerated procedure well Assessment/Plan Active Problems (Last Updated 11/04/19 @ 10:19 by Nia Beyer) Ulcer of left groin with fat layer exposed (Chronic) Pressure ulcer of coccygeal region, stage 3 (Chronic) Debility (Chronic) Candidal intertrigo (Chronic) Assessment: ulcers of left groin. morbid obesity. Candidal intertrigo Plan: Samra's ulcers were evaluated today. Her left groin cluster is smaller. Will have her continue to use Fibracol to the ulcers of her left lower abdomen and coccyx and interdry sache to her abdominal fold area to absorb moisture and prevent ulcers from developing due to the heavy drainage. Will start her on metronidazole for positive wound culture. Diflucan will be continued once weekly to treat candidal intertrigo. Will have her take this weekly to every other week due to sweating and heat and her body habitus and chronic yeast which are causing her to develop ulcers. Encouraged her to increase protein intake and offload the areas of her ulcers. Advised to call with any fever, chills, increased. drainage. Due to the chronic stage 3 pressure ulcer of her coccyx she would benefit from offloading mattress such as alternating pressure mattress. Will send prescription for this to [facility]. F/u in 2 weeks.
[2020-02-07 13:02] VITALS: BP 133/52; PULSE 73; RESP 16; TEMP 36.4; BMI 50.1
--- NOTE | 2020-02-07 16:20 | PCM.WC.PN ---
(1) Ulcer of left groin with fat layer exposed Status: Chronic Current Visit: Yes Code(s): L98.492 - Non-pressure chronic ulcer of skin of other sites with fat layer exposed (2) Pressure ulcer of coccygeal region, stage 3 Status: Chronic Current Visit: Yes Code(s): L89.153 - Pressure ulcer of sacral region, stage 3 (3) Debility Status: Chronic Current Visit: Yes Code(s): R53.81 - Other malaise (4) Candidal intertrigo Status: Chronic Current Visit: Yes Code(s): B37.2 - Candidiasis of skin and nail Type of Wound Date of Service: 02/07/20 Chief Complaint: ulcers of left groin and abdomen, pressure ulcer of coccyx History of Wound: Samra is a 73 yo woman who presents to the wound center for ulcers of left groin and abdomen referred by wound nurse at [facility]. She was recently hospitalized at [facility] for urosepsis. She was on IV antibiotics of Meropenem and Vancomycin. She is morbidly obese and has problems with candidal intertrigo and has ulcers that open frequently for several years. She was using towels to keep moisture from accumulating under her skin folds but this has been ineffective. She started using InstaDry sheets since discharge from the hospital which has improved the moisture in her folds. She has been using nystatin powder as well. She has been using bacitracin to the ulcer of her abdomen. She has an indwelling suprapubic catheter that is changed monthly. She has heavy drainage from her ulcers. She is wheelchair bound and has an aid that helps her daily for a few hours per day. She denies fever or chills. In May 2019, she reports that she has a chronic ulcer of her coccyx area that was previously surgically debrided that comes and goes and has gotten worse since she was in the [facility] in early 2018. Progress of Wound: Samra is here for follow up of ulcers of her left groin and coccyx. She is tolerating Fibracol dressings to left groin and continues to use Interdry strips to her groin area to wick away moisture. She has had improvement in erythema and decreased size of her ulcers of abdomen/groin but it has increased perspiration and moisture to the area. She continues to have increased pain to coccyx ulcer. Wound culture was positive for anaerobic bacteria. No increase in drainage. She has moderate to heavy drainage from the ulcers of her left groin. She is tolerating fibracol to her coccyx ulcer and has moderate to heavy drainage from this ulcer. Her mid-abdomen ulcer remains healed. She denies fever or chills or erythema or increased drainage from previous. - Physical Exam Vital Signs Temp Pulse Resp BP 97.6 F L 73 16 133/52 H 02/07/20 13:02 02/07/20 13:02 02/07/20 13:02 02/07/20 13:02 General: Alert, Oriented x3, Cooperative, No apparent distress HEENT: Atraumatic, Normocephalic Oral: Moist Mucosa Abdomen: Obese Extremities: Edema Skin: Ulcer/ Wound Wound Measurements and Assessment WC - Nurse 1 - General Ulcer Measurement Start: 01/17/20 13:02 Freq: Status: Active Protocol: Activity Type Activity Date Activity User E-Sign Co-Sign Detail Recorded Client Recorded Date Recorded By Document 02/07/20 13:02 [facility] [id number] 02/07/20 13:13 [facility] 02/07/20 13:02 Wound Center Nurse 1 [Ulcer Assessment] #3 Coccyx -Combined with other wound No -Current Size (cm) - Length 0.8 -Current Size (cm) - Width 3 -Current Size (cm) - Depth 0.5 -Total Square Cm 2.4 -Photo Taken No -Epithelialization None Present -Tunneling No -Undermining/Tunneling No -Circular Undermining No -Exudate Amt None Present -Wound Margin Thickened & Rolled Under -Granulation Amt Small (1-33%) -Granulation Quality Pale,Red -Slough/Fibrin Yes -Necrosis Amt Medium (34-66%) -Necrotic Tissue Type Adherent Slough -Texture (Jessica-wound Skin Appearance) Assessed, Scarring -Moisture (Jessica-wound Skin Appearance Assessed, ) Maceration -Color (Jessica-wound Skin Appearance) Assessed, Erythema,Palor -Temperature (Jessica-wound Skin No Abnormality Appearance) (Pt Warm) -Tenderness on Palpation (Jessica-wound Yes Skin Appearance) -Ulcer Cleansing Rinsed/ Irrigated with Saline -Foul Odor after Cleansing No -Anesthetic Used 5% Lidocaine Gel #1 left abd fold cluster -Combined with other wound No -Current Size (cm) - Length 0.1 -Current Size (cm) - Width 0.1 -Current Size (cm) - Depth 0.1 -Total Square Cm 0.01 -Photo Taken No -Epithelialization Large 67-100% -Tunneling No -Undermining/Tunneling No -Circular Undermining No -Exudate Amt None Present -Wound Margin Flat & Intact -Texture (Jessica-wound Skin Appearance) Assessed, Excoriation -Moisture (Jessica-wound Skin Appearance Assessed ) -Color (Jessica-wound Skin Appearance) Assessed, Erythema -Temperature (Jessica-wound Skin No Abnormality Appearance) (Pt Warm) -Tenderness on Palpation (Jessica-wound Yes Skin Appearance) -Ulcer Cleansing soapy water -Foul Odor after Cleansing No -Anesthetic Used 4% Lidocaine Solution WC - Nurse 2 - General Ulcer CM Notes Start: 01/17/20 13:02 Freq: Status: Active Protocol: Activity Type Activity Date Activity User E-Sign Co-Sign Detail Recorded Client Recorded Date Recorded By Document 02/07/20 14:07 DV [id number] 02/07/20 14:20 DV 02/07/20 14:07 Wound Center Nurse 2 [Procedure/Treatment] #3 Coccyx -Time 14:08 -Correct Patient Yes -Correct Side, Site, Position Yes -Correct Procedure Yes -Procedure Performed Yes -Type of Procedure Debridement -Clinical Debridement Subcutaneous -Post Debridement Size (cm) - Length 1.0 -Post Debridement Size (cm) - Width 2.7 -Post Debridement Size (cm) - Depth 0.3 -Total Square Cm 2.70 -Wound/Ulcer Outcome Not Healed -Ulcer Cleansing Rinsed/ Irrigated with Saline -Foul Odor after Cleansing No -Bioengineered Tissue No -Bleeding Controlled with Pressure -Offloading No -Treatment Response Procedure Tolerated Well #1 left abd fold cluster -Time 14:09 -Correct Patient Yes -Correct Side, Site, Position Yes -Correct Procedure No -Procedure Performed No -Wound/Ulcer Outcome Not Healed -Ulcer Cleansing Rinsed/ Irrigated with Saline -Foul Odor after Cleansing No -Bioengineered Tissue No -Bleeding Controlled with Pressure -Offloading Yes -Treatment Response Procedure Tolerated Well [See Physician Procedure note for Specifics] Pain Scale: 0-10 Numeric [Pain] -Is Patient Pain Free? Yes Psych/Mental Status: Normal Affect, Appropriate Debridement Note Post-Debridement Measurements/Treatment WC - Nurse 2 - General Ulcer CM Notes Start: 01/17/20 13:02 Freq: Status: Active Protocol: Activity Type Activity Date Activity User E-Sign Co-Sign Detail Recorded Client Recorded Date Recorded By Document 01/17/20 13:18 MW [id number] 01/17/20 13:33 MW Document 02/07/20 14:07 DV [id number] 02/07/20 14:20 DV 01/17/20 02/07/20 13:18 14:07 Wound Center Nurse 2 #3 Coccyx -Time 13:18 14:08 -Correct Patient Yes Yes -Correct Side, Site, Position Yes Yes -Correct Procedure Yes Yes -Procedure Performed Yes Yes -Type of Procedure Debridement Debridement -Clinical Debridement Subcutaneous Subcutaneous -Post Debridement Size (cm) - Length 0.9 1.0 -Post Debridement Size (cm) - Width 2.7 2.7 -Post Debridement Size (cm) - Depth 0.3 0.3 -Total Square Cm 2.43 2.70 -Wound/Ulcer Outcome Not Healed Not Healed -Ulcer Cleansing Rinsed/ Rinsed/ Irrigated with Irrigated with Saline Saline -Foul Odor after Cleansing No No -Bioengineered Tissue No No -Bleeding Controlled with Pressure Pressure -Offloading No No -Treatment Response Procedure Procedure Tolerated Well Tolerated Well #1 left abd fold cluster -Time 13:18 14:09 -Correct Patient Yes Yes -Correct Side, Site, Position Yes Yes -Correct Procedure Yes No -Procedure Performed No No -Wound/Ulcer Outcome Not Healed Not Healed -Ulcer Cleansing Not Cleansed Rinsed/ Irrigated with Saline -Foul Odor after Cleansing No No -Bioengineered Tissue No No -Bleeding Controlled with NA Pressure -Offloading No Yes -Treatment Response Procedure Procedure Tolerated Well Tolerated Well Pain Scale: 0-10 Numeric Is Patient Pain Free? Yes Yes Wound debrided: coccyx Laterality: Not Applicable Wound Grade/Stage: Stage 3 Type of Debridement: Excisional debridement Anesthesia Used: 4% Lidocaine Solution, 5% Lidocaine Gel Depth: Down to and including healthy tissue, in the subcutaneous layer Percentage of wound debrided: 100 Instrument Used: 5mm curette Tissue Removed: yellow slough, devitalized tissue Severity: Fat Layer Exposed Amount of bleeding with debridement: Mild Bleeding Controlled with: Compression and gauze Patient tolerated procedure well - Additional Wound Wound debrided: left lower abdominal cluster Laterality: Left Type of Debridement: Selective debridement Anesthesia Used: 4% Lidocaine Solution Depth: Down to and including healthy tissue, in the subcutaneous layer Percentage of wound debrided: 100 Instrument Used: - - gauze Severity: Limited To Skin Breakdown Amount of bleeding with debridement: Mild Patient tolerated procedure: Patient tolerated procedure well Assessment/Plan Active Problems (Last Updated 11/04/19 @ 10:19 by Nia Beyer) Ulcer of left groin with fat layer exposed (Chronic) Pressure ulcer of coccygeal region, stage 3 (Chronic) Debility (Chronic) Candidal intertrigo (Chronic) Assessment: ulcers of left groin. morbid obesity. Candidal intertrigo Plan: Samra's ulcers were evaluated today. Her left groin cluster is much smaller. Will have her continue to use Fibracol to the ulcers of her left lower abdomen and coccyx and interdry sache to her abdominal fold area to absorb moisture and prevent ulcers from developing due to the heavy drainage. Wound culture repeated today. F/U based on results. Diflucan will be continued once weekly to treat candidal intertrigo. Will have her take this weekly to every other week due to sweating and heat and her body habitus and chronic yeast which are causing her to develop ulcers. Encouraged her to increase protein intake and offload the areas of her ulcers. Advised to call with any fever, chills, increased. drainage. Due to the chronic stage 3 pressure ulcer of her coccyx she would benefit from offloading mattress such as alternating pressure mattress. Will send prescription for this to [facility] [place] [facility]. F/u in 3 weeks.
== END 2020-02-11 23:59 ==
LOC: WC 13:00
PROVIDERS: Family Provider Family Medicine; PCP Internal Medicine; Referring Provider Family Medicine; Visit Provider Family Medicine
DX: L89.153 Pressure ulcer of sacral region, stage 3 (principal); B37.2 Candidiasis of skin and nail; L98.492 Non-pressure chronic ulcer of skin of other sites with fat layer exposed; E66.01 Morbid (severe) obesity due to excess calories; Z99.3 Dependence on wheelchair
CPT/HCPCS: 11042; 87070; 87075; 87077; 87205

== ENCOUNTER 2020-02-28 10:26 | Outpatient (RCR) | payer MEDICARE, OTHER, SELFPAY ==
[2020-02-12 00:25] VITALS: BP 133/52; PULSE 73; RESP 16; TEMP 36.4
[2020-02-28 13:00] VITALS: BP 130/68; PULSE 68; RESP 18; TEMP 36.3; BMI 50.1
--- NOTE | 2020-02-28 16:51 | PCM.WC.PN ---
(1) Ulcer of left groin with fat layer exposed Status: Chronic Current Visit: Yes Code(s): L98.492 - Non-pressure chronic ulcer of skin of other sites with fat layer exposed (2) Pressure ulcer of coccygeal region, stage 3 Status: Chronic Current Visit: Yes Code(s): L89.153 - Pressure ulcer of sacral region, stage 3 (3) Morbid obesity Status: Chronic Current Visit: Yes Code(s): E66.01 - Morbid (severe) obesity due to excess calories (4) Candidal intertrigo Status: Chronic Current Visit: Yes Code(s): B37.2 - Candidiasis of skin and nail Type of Wound Date of Service: 02/28/20 Chief Complaint: ulcers of left groin and abdomen, pressure ulcer of coccyx History of Wound: Samra is a 73 yo woman who presents to the wound center for ulcers of left groin and abdomen referred by wound nurse at [facility]. She was recently hospitalized at [facility] for urosepsis. She was on IV antibiotics of Meropenem and Vancomycin. She is morbidly obese and has problems with candidal intertrigo and has ulcers that open frequently for several years. She was using towels to keep moisture from accumulating under her skin folds but this has been ineffective. She started using InstaDry sheets since discharge from the hospital which has improved the moisture in her folds. She has been using nystatin powder as well. She has been using bacitracin to the ulcer of her abdomen. She has an indwelling suprapubic catheter that is changed monthly. She has heavy drainage from her ulcers. She is wheelchair bound and has an aid that helps her daily for a few hours per day. She denies fever or chills. In May 2019, she reports that she has a chronic ulcer of her coccyx area that was previously surgically debrided that comes and goes and has gotten worse since she was in the [place] [facility] in early 2018. Progress of Wound: Samra is here for follow up of ulcers of her left groin and coccyx. She is tolerating Fibracol dressings to left groin and continues to use Interdry strips to her groin area to wick away moisture. She has had improvement in erythema and decreased size of her ulcers of abdomen/groin but it has increased perspiration and moisture to the area. She continues to have increased pain to coccyx ulcer. Wound culture was positive for anaerobic bacteria. No increase in drainage. Tolerated metronidazole. She has moderate to heavy drainage from the ulcers of her left groin. She is tolerating fibracol to her coccyx ulcer and has moderate to heavy drainage from this ulcer. Her mid-abdomen ulcer remains healed. She denies fever or chills or erythema or increased drainage from previous. - Physical Exam Vital Signs Temp Pulse Resp BP 97.3 F L 68 18 130/68 H 02/28/20 13:00 02/28/20 13:00 02/28/20 13:00 02/28/20 13:00 General: Alert, Oriented x3, Cooperative, No apparent distress HEENT: Atraumatic, Normocephalic Oral: Moist Mucosa Abdomen: Obese Extremities: Edema Skin: Ulcer/ Wound Wound Measurements and Assessment WC - Nurse 1 - General Ulcer Measurement Start: 02/28/20 13:00 Freq: Status: Active Protocol: Activity Type Activity Date Activity User E-Sign Co-Sign Detail Recorded Client Recorded Date Recorded By Document 02/28/20 13:00 MW [id number] 02/28/20 13:19 MW 02/28/20 13:00 Wound Center Nurse 1 [Ulcer Assessment] #3 Coccyx -Combined with other wound No -Current Size (cm) - Length 1.5 -Current Size (cm) - Width 0.4 -Current Size (cm) - Depth 0.6 -Total Square Cm 0.60 -Photo Taken No -Epithelialization None Present -Tunneling No -Undermining/Tunneling No -Circular Undermining No -Exudate Amt Medium -Exudate Type Serosanguineous -Wound Margin Indistinct, Non -Visible -Granulation Amt None Present (0 %) -Granulation Quality N/A -Slough/Fibrin Yes -Structure Exposed None/Limited to Skin Breakdown -Texture (Jessica-wound Skin Appearance) Assessed, Scarring,Rash -Moisture (Jessica-wound Skin Appearance Assessed, ) Weeping -Color (Jessica-wound Skin Appearance) Assessed, Erythema -Temperature (Jessica-wound Skin No Abnormality Appearance) (Pt Warm) -Tenderness on Palpation (Jessica-wound No Skin Appearance) -Ulcer Cleansing Rinsed/ Irrigated with Saline -Anesthetic Used 5% Lidocaine Gel #1 left abd fold cluster -Combined with other wound No -Current Size (cm) - Length 3.5 -Current Size (cm) - Width 7.8 -Current Size (cm) - Depth 0.1 -Total Square Cm 27.30 -Photo Taken No -Epithelialization None Present -Tunneling No -Undermining/Tunneling No -Circular Undermining No -Classification - Thickness Full Thickness without Exposed Support Structure -Exudate Amt Large -Exudate Type Serous -Wound Margin Indistinct, Non -Visible -Granulation Amt None Present (0 %) -Granulation Quality N/A -Slough/Fibrin Yes -Necrosis Amt Medium (34-66%) -Necrotic Tissue Type Adherent Slough -Structure Exposed None/Limited to Skin Breakdown -Texture (Jessica-wound Skin Appearance) Assessed, Scarring,Rash -Moisture (Jessica-wound Skin Appearance Assessed, ) Weeping -Color (Jessica-wound Skin Appearance) Assessed, Erythema -Temperature (Jessica-wound Skin No Abnormality Appearance) (Pt Warm) -Tenderness on Palpation (Jessica-wound Yes Skin Appearance) -Ulcer Cleansing Wound Cleanser -Foul Odor after Cleansing No -Anesthetic Used 5% Lidocaine Gel WC - Nurse 2 - General Ulcer CM Notes Start: 02/28/20 13:00 Freq: Status: Active Protocol: Activity Type Activity Date Activity User E-Sign Co-Sign Detail Recorded Client Recorded Date Recorded By Document 02/28/20 13:21 MW [id number] 02/28/20 13:31 MW 02/28/20 13:21 Wound Center Nurse 2 [Procedure/Treatment] #3 Coccyx -Time 13:27 -Correct Patient Yes -Correct Side, Site, Position Yes -Correct Procedure Yes -Procedure Performed Yes -Type of Procedure Debridement -Clinical Debridement Subcutaneous -Post Debridement Size (cm) - Length 0.5 -Post Debridement Size (cm) - Width 2.5 -Post Debridement Size (cm) - Depth 0.3 -Total Square Cm 1.25 -Wound/Ulcer Outcome Not Healed -Ulcer Cleansing Rinsed/ Irrigated with Saline -Foul Odor after Cleansing No -Bioengineered Tissue No -Bleeding Controlled with Pressure -Offloading No -Treatment Response Procedure Tolerated Well #1 left abd fold cluster -Time 13:23 -Correct Patient Yes -Correct Side, Site, Position Yes -Correct Procedure No -Procedure Performed No -Post Debridement Size (cm) - Length 7.0 -Post Debridement Size (cm) - Width 6.0 -Post Debridement Size (cm) - Depth 0.1 -Total Square Cm 42.00 -Wound/Ulcer Outcome Not Healed -Ulcer Cleansing Rinsed/ Irrigated with Saline -Foul Odor after Cleansing No -Bioengineered Tissue No -Offloading No [See Physician Procedure note for Specifics] Psych/Mental Status: Normal Affect, Appropriate Debridement Note Post-Debridement Measurements/Treatment WC - Nurse 2 - General Ulcer CM Notes Start: 02/28/20 13:00 Freq: Status: Active Protocol: Activity Type Activity Date Activity User E-Sign Co-Sign Detail Recorded Client Recorded Date Recorded By Document 02/28/20 13:21 MW [id number] 02/28/20 13:31 MW 02/28/20 13:21 Wound Center Nurse 2 #3 Coccyx -Time 13:27 -Correct Patient Yes -Correct Side, Site, Position Yes -Correct Procedure Yes -Procedure Performed Yes -Type of Procedure Debridement -Clinical Debridement Subcutaneous -Post Debridement Size (cm) - Length 0.5 -Post Debridement Size (cm) - Width 2.5 -Post Debridement Size (cm) - Depth 0.3 -Total Square Cm 1.25 -Wound/Ulcer Outcome Not Healed -Ulcer Cleansing Rinsed/ Irrigated with Saline -Foul Odor after Cleansing No -Bioengineered Tissue No -Bleeding Controlled with Pressure -Offloading No -Treatment Response Procedure Tolerated Well #1 left abd fold cluster -Time 13:23 -Correct Patient Yes -Correct Side, Site, Position Yes -Correct Procedure No -Procedure Performed No -Post Debridement Size (cm) - Length 7.0 -Post Debridement Size (cm) - Width 6.0 -Post Debridement Size (cm) - Depth 0.1 -Total Square Cm 42.00 -Wound/Ulcer Outcome Not Healed -Ulcer Cleansing Rinsed/ Irrigated with Saline -Foul Odor after Cleansing No -Bioengineered Tissue No -Offloading No Wound debrided: coccyx Laterality: Not Applicable Wound Grade/Stage: Stage 3 Type of Debridement: Excisional debridement Anesthesia Used: 4% Lidocaine Solution, 5% Lidocaine Gel Depth: Down to and including healthy tissue, in the subcutaneous layer Percentage of wound debrided: 100 Instrument Used: 3mm curette Tissue Removed: yellow slough, devitalized tissue Severity: Fat Layer Exposed Amount of bleeding with debridement: Mild Bleeding Controlled with: Compression and gauze Patient tolerated procedure well - Additional Wound Wound debrided: left lower abdomen/groin cluster Laterality: Left Type of Debridement: Selective debridement Anesthesia Used: 4% Lidocaine Solution Depth: Down to and including healthy tissue Percentage of wound debrided: 100 Instrument Used: - - gauze Severity: Fat Layer Exposed Amount of bleeding with debridement: Mild Bleeding Controlled with: Compression and gauze Patient tolerated procedure: Patient tolerated procedure well Assessment/Plan Active Problems (Last Updated 11/04/19 @ 10:19 by Nia Beyer) Ulcer of left groin with fat layer exposed (Chronic) Pressure ulcer of coccygeal region, stage 3 (Chronic) Morbid obesity (Chronic) Candidal intertrigo (Chronic) Assessment: ulcers of left groin. morbid obesity. Candidal intertrigo Plan: Sarma's ulcers were evaluated today. Her left groin cluster is a little larger. She has been scratching. Will have her continue to use Fibracol to the ulcers of her left lower abdomen and coccyx and interdry sache to her abdominal fold area to absorb moisture and prevent ulcers from developing due to the heavy drainage. Diflucan will be continued once weekly to treat candidal intertrigo. Will have her take this weekly to every other week due to sweating and heat and her body habitus and chronic yeast which are causing her to develop ulcers. Encouraged her to increase protein intake and offload the areas of her ulcers. Advised to call with any fever, chills, increased. drainage. Due to the chronic stage 3 pressure ulcer of her coccyx she would benefit from offloading mattress such as alternating pressure mattress. Will send prescription for this to [facility]. F/u in 3 weeks.
== END 2020-03-12 23:59 ==
LOC: WC 10:26
PROVIDERS: Family Provider Family Medicine; PCP Internal Medicine; Referring Provider Family Medicine; Visit Provider Family Medicine
DX: L89.153 Pressure ulcer of sacral region, stage 3 (principal); L98.492 Non-pressure chronic ulcer of skin of other sites with fat layer exposed; B37.2 Candidiasis of skin and nail; E66.01 Morbid (severe) obesity due to excess calories; Z99.3 Dependence on wheelchair; Z79.84 Long term (current) use of oral hypoglycemic drugs; Z79.82 Long term (current) use of aspirin; Z79.899 Other long term (current) drug therapy
CPT/HCPCS: 11042

== ENCOUNTER 2020-04-03 10:00 | Outpatient (RCR) | payer MEDICARE, OTHER, SELFPAY ==
[2020-03-13 00:09] VITALS: BP 130/68; PULSE 68; RESP 18; TEMP 36.3
[2020-03-20 12:59] VITALS: BP 117/45; PULSE 71; RESP 18; TEMP 36.1; BMI 50.1
--- NOTE | 2020-03-20 18:47 | PCM.WC.PN ---
(1) Ulcer of left groin with fat layer exposed Status: Chronic Code(s): L98.492 - Non-pressure chronic ulcer of skin of other sites with fat layer exposed (2) Pressure ulcer of coccygeal region, stage 3 Status: Chronic Code(s): L89.153 - Pressure ulcer of sacral region, stage 3 (3) Morbid obesity Status: Chronic Code(s): E66.01 - Morbid (severe) obesity due to excess calories (4) Candidal intertrigo Status: Chronic Code(s): B37.2 - Candidiasis of skin and nail Type of Wound Date of Service: 03/29/20 Chief Complaint: ulcers of left groin and abdomen, pressure ulcer of coccyx History of Wound: Samra is a 74 yo woman who presented to the wound center for ulcers of left groin and abdomen referred by wound nurse at [facility]. She was hospitalized at [facility] for urosepsis multiple times. She was on IV antibiotics of Meropenem and Vancomycin. She is morbidly obese and has problems with candidal intertrigo and has ulcers that open frequently for several years. She was using towels to keep moisture from accumulating under her skin folds but this has been ineffective. She started using InstaDry sheets since discharge from the hospital which has improved the moisture in her folds. She has been using nystatin powder as well. She had been using bacitracin to the ulcer of her abdomen. She has an indwelling suprapubic catheter that is changed monthly. She has heavy drainage from her ulcers. She is wheelchair bound and has an aid that helps her daily for a few hours per day. She denies fever or chills. In May 2019, she reports that she has a chronic ulcer of her coccyx area that was previously surgically debrided that comes and goes and has gotten worse since she was in the [facility] in early 2018. Progress of Wound: Samra is here for follow up of ulcers of her left groin and coccyx. She is tolerating Fibracol dressings to left groin and continues to use Interdry strips to her groin area to wick away moisture. She has had improvement in erythema and decreased size of her ulcers of abdomen/groin but she has had increased perspiration and moisture to the area due to warmer temperatures. She has had improvement in pain to coccyx ulcer. She has moderate to heavy drainage from the ulcers of her left groin. She is tolerating fibracol to her coccyx ulcer and has moderate to heavy drainage from this ulcer. Her mid-abdomen ulcer remains healed. She denies fever or chills or erythema or increased drainage from previous visit. - Physical Exam Vital Signs Temp Pulse Resp BP 97 F L 71 18 117/45 L 03/20/20 12:59 03/20/20 12:59 03/20/20 12:59 03/20/20 12:59 General: Alert, Oriented x3, Cooperative, No apparent distress HEENT: Atraumatic, Normocephalic Oral: Moist Mucosa Neck: Supple Abdomen: Obese Extremities: Edema Skin: Ulcer/ Wound, Rash Present, Excoriated Wound Measurements and Assessment WC - Nurse 1 - General Ulcer Measurement Start: 03/20/20 12:59 Freq: Status: Active Protocol: Activity Type Activity Date Activity User E-Sign Co-Sign Detail Recorded Client Recorded Date Recorded By Document 03/20/20 12:59 RB [id number] 03/20/20 13:02 RB 03/20/20 12:59 Wound Center Nurse 1 [Ulcer Assessment] #3 Coccyx -Combined with other wound No -Current Size (cm) - Length 0.5 -Current Size (cm) - Width 2.5 -Current Size (cm) - Depth 0.4 -Total Square Cm 1.25 -Tunneling No -Undermining/Tunneling No -Circular Undermining No -Exudate Amt Medium -Exudate Type Serosanguineous -Wound Margin Thickened -Granulation Amt Medium (34-66%) -Granulation Quality [place] -Slough/Fibrin Yes -Necrosis Amt Small (1-33%) -Necrotic Tissue Type Adherent Slough -Structure Exposed N/A -Texture (Jessica-wound Skin Appearance) Assessed, Scarring -Moisture (Jessica-wound Skin Appearance Assessed, ) Maceration -Color (Jessica-wound Skin Appearance) Assessed -Temperature (Jessica-wound Skin No Abnormality Appearance) (Pt Warm) -Tenderness on Palpation (Jessica-wound No Skin Appearance) -Ulcer Cleansing Wound Cleanser -Foul Odor after Cleansing Yes -Anesthetic Used 5% Lidocaine Gel #1 left abd fold cluster -Combined with other wound No -Current Size (cm) - Length 6 -Current Size (cm) - Width 13 -Current Size (cm) - Depth 0.1 -Total Square Cm 78 -Tunneling No -Undermining/Tunneling No -Circular Undermining No -Exudate Amt Large -Exudate Type Serosanguineous -Granulation Quality [place] -Slough/Fibrin Yes -Necrosis Amt Medium (34-66%) -Necrotic Tissue Type Adherent Slough -Structure Exposed N/A -Texture (Jessica-wound Skin Appearance) Assessed, Excoriation -Moisture (Jessica-wound Skin Appearance Assessed ) -Color (Jessica-wound Skin Appearance) Erythema -Temperature (Jessica-wound Skin No Abnormality Appearance) (Pt Warm) -Tenderness on Palpation (Jessica-wound No Skin Appearance) -Ulcer Cleansing Wound Cleanser -Foul Odor after Cleansing No -Anesthetic Used 5% Lidocaine Gel WC - Nurse 2 - General Ulcer CM Notes Start: 03/20/20 12:59 Freq: Status: Active Protocol: Activity Type Activity Date Activity User E-Sign Co-Sign Detail Recorded Client Recorded Date Recorded By Document 03/20/20 13:44 DV [id number] 03/20/20 13:54 DV 03/20/20 13:44 Wound Center Nurse 2 [Procedure/Treatment] #3 Coccyx -Time 13:51 -Correct Patient Yes -Correct Side, Site, Position Yes -Correct Procedure Yes -Procedure Performed Yes -Type of Procedure Debridement -Clinical Debridement Subcutaneous -Post Debridement Size (cm) - Length 0.5 -Post Debridement Size (cm) - Width 1.3 -Post Debridement Size (cm) - Depth 0.3 -Total Square Cm 0.65 -Wound/Ulcer Outcome Not Healed -Ulcer Cleansing Rinsed/ Irrigated with Saline -Foul Odor after Cleansing No -Bioengineered Tissue No -Bleeding Controlled with Pressure -Offloading No -Treatment Response Procedure Tolerated Well #1 left abd fold cluster -Time 13:51 -Correct Patient Yes -Correct Side, Site, Position Yes -Correct Procedure Yes -Procedure Performed No -Wound/Ulcer Outcome Not Healed -Ulcer Cleansing Rinsed/ Irrigated with Saline -Foul Odor after Cleansing No -Bioengineered Tissue No -Bleeding Controlled with NA -Offloading No -Treatment Response Procedure Tolerated Well [See Physician Procedure note for Specifics] Pain Scale: 0-10 Numeric [Pain] -Is Patient Pain Free? Yes Psych/Mental Status: Normal Affect, Appropriate Debridement Note Post-Debridement Measurements/Treatment WC - Nurse 2 - General Ulcer CM Notes Start: 03/20/20 12:59 Freq: Status: Active Protocol: Activity Type Activity Date Activity User E-Sign Co-Sign Detail Recorded Client Recorded Date Recorded By Document 03/20/20 13:44 DV [id number] 03/20/20 13:54 DV 03/20/20 13:44 Wound Center Nurse 2 #3 Coccyx -Time 13:51 -Correct Patient Yes -Correct Side, Site, Position Yes -Correct Procedure Yes -Procedure Performed Yes -Type of Procedure Debridement -Clinical Debridement Subcutaneous -Post Debridement Size (cm) - Length 0.5 -Post Debridement Size (cm) - Width 1.3 -Post Debridement Size (cm) - Depth 0.3 -Total Square Cm 0.65 -Wound/Ulcer Outcome Not Healed -Ulcer Cleansing Rinsed/ Irrigated with Saline -Foul Odor after Cleansing No -Bioengineered Tissue No -Bleeding Controlled with Pressure -Offloading No -Treatment Response Procedure Tolerated Well #1 left abd fold cluster -Time 13:51 -Correct Patient Yes -Correct Side, Site, Position Yes -Correct Procedure Yes -Procedure Performed No -Wound/Ulcer Outcome Not Healed -Ulcer Cleansing Rinsed/ Irrigated with Saline -Foul Odor after Cleansing No -Bioengineered Tissue No -Bleeding Controlled with NA -Offloading No -Treatment Response Procedure Tolerated Well Pain Scale: 0-10 Numeric Is Patient Pain Free? Yes Wound debrided: coccyx Laterality: Not Applicable Wound Grade/Stage: Stage 3 Type of Debridement: Excisional debridement Anesthesia Used: 4% Lidocaine Solution, 5% Lidocaine Gel Depth: Down to and including healthy tissue, in the subcutaneous layer Percentage of wound debrided: 100 Instrument Used: 7mm curette Tissue Removed: yellow slough, devitalized tissue Severity: Fat Layer Exposed Amount of bleeding with debridement: Mild Bleeding Controlled with: Compression and gauze Patient tolerated procedure well - Additional Wound Wound debrided: left abdominal fold cluster Laterality: Left Anesthesia Used: 4% Lidocaine Solution Operative Diagnosis: No debridement completed as there is no slough present - only skin breakdow Assessment/Plan Assessment: ulcers of left groin. morbid obesity. Candidal intertrigo. Stage 3 pressure ulcer of coccyx Plan: Samra's ulcers were evaluated today. Her left groin cluster is a little larger. She has been scratching and moisture/perspiration is increased. Will have her continue to use Fibracol to the ulcers of her left lower abdomen and coccyx and interdry sache to her abdominal fold area to absorb moisture and prevent ulcers from developing due to the heavy drainage. Diflucan will be continued once weekly to treat candidal intertrigo. Will have her take this weekly to every other week due to sweating and heat and her body habitus and chronic yeast which are causing her to develop ulcers. Encouraged her to increase protein intake and offload the areas of her ulcers. Advised to call with any fever, chills, increased. drainage. Due to the chronic stage 3 pressure ulcer of her coccyx she would benefit from offloading mattress such as alternating pressure mattress. F/u in 3 weeks.
[2020-04-03 15:07] VITALS: BP 122/66; PULSE 80; RESP 16; TEMP 36.5; BMI 50.1
--- NOTE | 2020-04-03 18:21 | PN.PCM_ITS ---
(1) Ulcer of left groin with fat layer exposed Status: Chronic Current Visit: Yes Code(s): L98.492 - Non-pressure chronic ulcer of skin of other sites with fat layer exposed (2) Pressure ulcer of coccygeal region, stage 3 Status: Chronic Current Visit: Yes Code(s): L89.153 - Pressure ulcer of sacral region, stage 3 (3) Morbid obesity Status: Chronic Current Visit: Yes Code(s): E66.01 - Morbid (severe) obesity due to excess calories (4) Candidal intertrigo Status: Chronic Current Visit: Yes Code(s): B37.2 - Candidiasis of skin and nail Type of Wound Date of Service: 04/03/20 Chief Complaint: ulcers of left groin and abdomen, pressure ulcer of coccyx History of Wound: Samra is a 74 yo woman who presented to the wound center for ulcers of left groin and abdomen referred by wound nurse at [facility]. She was hospitalized at [facility] for urosepsis multiple times. She was on IV antibiotics of Meropenem and Vancomycin. She is morbidly obese and has problems with candidal intertrigo and has ulcers that open frequently for several years. She was using towels to keep moisture from accumulating under her skin folds but this has been ineffective. She started using InstaDry sheets since discharge from the hospital which has improved the moisture in her folds. She has been using nystatin powder as well. She had been using bacitracin to the ulcer of her abdomen. She has an indwelling suprapubic catheter that is changed monthly. She has heavy drainage from her ulcers. She is wheelchair bound and has an aid that helps her daily for a few hours per day. She denies fever or chills. In May 2019, she reports that she has a chronic ulcer of her coccyx area that was previously surgically debrided that comes and goes and has gotten worse since she was in the [place] [facility] in early 2018. Progress of Wound: Samra is here for follow up of ulcers of her left groin and coccyx. She is tolerating Fibracol dressings to left groin and continues to use Interdry strips and ABD pads to her groin area to wick away moisture for her very heavy drainage. She has had improvement in erythema and decreased size of her ulcers of abdomen/groin but she has had increased perspiration and moisture to the area due to warmer temperatures. She has had increase in pain to coccyx ulcer. She has very heavy drainage from the ulcers of her left groin. She is tolerating fibracol to her coccyx ulcer and has moderate to heavy drainage from this ulcer. Her mid-abdomen ulcer remains healed. She denies fever or chills or erythema. - Physical Exam Vital Signs Temp Pulse Resp BP 97.7 F L 80 16 122/66 H 04/03/20 15:07 04/03/20 15:07 04/03/20 15:07 04/03/20 15:07 General: Alert, Oriented x3, Cooperative, No apparent distress HEENT: Atraumatic, Normocephalic Oral: Moist Mucosa Abdomen: Soft, Non Tender, Obese Extremities: Edema Skin: Ulcer/ Wound Wound Measurements and Assessment WC - Nurse 1 - General Ulcer Measurement Start: 03/20/20 12:59 Freq: Status: Active Protocol: Activity Type Activity Date Activity User E-Sign Co-Sign Detail Recorded Client Recorded Date Recorded By Document 04/03/20 15:07 [facility] [id number] 04/03/20 15:18 [facility] 04/03/20 15:07 Wound Center Nurse 1 [Ulcer Assessment] #3 Coccyx -Combined with other wound No -Current Size (cm) - Length 1 -Current Size (cm) - Width 2.8 -Current Size (cm) - Depth 0.8 -Total Square Cm 2.8 -Date of Last Picture (Recall this 04/03/20 field) -Photo Taken Yes -Epithelialization None Present -Tunneling No -Undermining/Tunneling No -Circular Undermining No -Exudate Amt Small -Exudate Type Serosanguineous -Wound Margin Thickened & Rolled Under -Granulation Amt Medium (34-66%) -Granulation Quality [place] -Slough/Fibrin Yes -Necrosis Amt Medium (34-66%) -Necrotic Tissue Type Adherent Slough -Texture (Jessica-wound Skin Appearance) Assessed, Scarring -Moisture (Jessica-wound Skin Appearance Assessed,Dry/ ) Scaly -Color (Jessica-wound Skin Appearance) Assessed, Erythema -Temperature (Jessica-wound Skin No Abnormality Appearance) (Pt Warm) -Tenderness on Palpation (Jessica-wound Yes Skin Appearance) -Ulcer Cleansing soapy water -Foul Odor after Cleansing No -Anesthetic Used 5% Lidocaine Gel #1 left abd fold cluster -Combined with other wound No -Current Size (cm) - Length 6 -Current Size (cm) - Width 20 -Current Size (cm) - Depth 0.1 -Total Square Cm 120 -Date of Last Picture (Recall this 04/03/20 field) -Photo Taken Yes -Epithelialization None Present -Tunneling No -Undermining/Tunneling No -Circular Undermining No -Exudate Amt Medium -Exudate Type Serosanguineous -Wound Margin Flat & Intact -Granulation Amt Large (67-100%) -Granulation Quality Red -Slough/Fibrin Yes -Necrosis Amt Small (1-33%) -Necrotic Tissue Type Adherent Slough -Texture (Jessica-wound Skin Appearance) Assessed, Excoriation -Moisture (Jessica-wound Skin Appearance Assessed ) -Color (Jessica-wound Skin Appearance) Assessed, Erythema -Temperature (Jessica-wound Skin No Abnormality Appearance) (Pt Warm) -Tenderness on Palpation (Jessica-wound Yes Skin Appearance) -Ulcer Cleansing soapy water -Foul Odor after Cleansing No -Anesthetic Used 4% Lidocaine Solution WC - Nurse 2 - General Ulcer CM Notes Start: 03/20/20 12:59 Freq: Status: Active Protocol: Activity Type Activity Date Activity User E-Sign Co-Sign Detail Recorded Client Recorded Date Recorded By Document 04/03/20 16:14 DV [id number] 04/03/20 16:20 DV 04/03/20 16:14 Wound Center Nurse 2 [Procedure/Treatment] #3 Coccyx -Time 16:18 -Correct Patient Yes -Correct Side, Site, Position Yes -Correct Procedure Yes -Procedure Performed Yes -Type of Procedure Debridement -Clinical Debridement Subcutaneous -Post Debridement Size (cm) - Length 1.0 -Post Debridement Size (cm) - Width 0.4 -Post Debridement Size (cm) - Depth 0.3 -Total Square Cm 0.40 -Wound/Ulcer Outcome Not Healed -Ulcer Cleansing Rinsed/ Irrigated with Saline -Foul Odor after Cleansing Yes -Bioengineered Tissue No -Bleeding Controlled with Pressure -Offloading Yes -Treatment Response Procedure Tolerated Well #1 left abd fold cluster -Time 16:15 -Correct Patient Yes -Correct Side, Site, Position Yes -Correct Procedure Yes -Procedure Performed Yes -Type of Procedure Debridement -Clinical Debridement Subcutaneous -Post Debridement Size (cm) - Length 12.0 -Post Debridement Size (cm) - Width 3.0 -Post Debridement Size (cm) - Depth 0.1 -Total Square Cm 36.00 -Wound/Ulcer Outcome Not Healed -Ulcer Cleansing Rinsed/ Irrigated with Saline -Foul Odor after Cleansing No -Bioengineered Tissue No -Bleeding Controlled with Pressure -Offloading No -Treatment Response Procedure Tolerated Well [See Physician Procedure note for Specifics] Pain Scale: 0-10 Numeric [Pain] -Is Patient Pain Free? Yes Psych/Mental Status: Normal Affect, Appropriate Debridement Note Post-Debridement Measurements/Treatment WC - Nurse 2 - General Ulcer CM Notes Start: 03/20/20 12:59 Freq: Status: Active Protocol: Activity Type Activity Date Activity User E-Sign Co-Sign Detail Recorded Client Recorded Date Recorded By Document 03/20/20 13:44 DV [id number] 03/20/20 13:54 DV Document 04/03/20 16:14 DV [id number] 04/03/20 16:20 DV 03/20/20 04/03/20 13:44 16:14 Wound Center Nurse 2 #3 Coccyx -Time 13:51 16:18 -Correct Patient Yes Yes -Correct Side, Site, Position Yes Yes -Correct Procedure Yes Yes -Procedure Performed Yes Yes -Type of Procedure Debridement Debridement -Clinical Debridement Subcutaneous Subcutaneous -Post Debridement Size (cm) - Length 0.5 1.0 -Post Debridement Size (cm) - Width 1.3 0.4 -Post Debridement Size (cm) - Depth 0.3 0.3 -Total Square Cm 0.65 0.40 -Wound/Ulcer Outcome Not Healed Not Healed -Ulcer Cleansing Rinsed/ Rinsed/ Irrigated with Irrigated with Saline Saline -Foul Odor after Cleansing No Yes -Bioengineered Tissue No No -Bleeding Controlled with Pressure Pressure -Offloading No Yes -Treatment Response Procedure Procedure Tolerated Well Tolerated Well #1 left abd fold cluster -Time 13:51 16:15 -Correct Patient Yes Yes -Correct Side, Site, Position Yes Yes -Correct Procedure Yes Yes -Procedure Performed No Yes -Type of Procedure Debridement -Clinical Debridement Subcutaneous -Post Debridement Size (cm) - Length 12.0 -Post Debridement Size (cm) - Width 3.0 -Post Debridement Size (cm) - Depth 0.1 -Total Square Cm 36.00 -Wound/Ulcer Outcome Not Healed Not Healed -Ulcer Cleansing Rinsed/ Rinsed/ Irrigated with Irrigated with Saline Saline -Foul Odor after Cleansing No No -Bioengineered Tissue No No -Bleeding Controlled with NA Pressure -Offloading No No -Treatment Response Procedure Procedure Tolerated Well Tolerated Well Pain Scale: 0-10 Numeric Is Patient Pain Free? Yes Yes Wound debrided: left abdominal fold cluster Laterality: Left Type of Debridement: Selective debridement Anesthesia Used: 4% Lidocaine Solution Depth: Down to and including healthy tissue Percentage of wound debrided: 100 Instrument Used: - - gauze Tissue Removed: devitalized tissue Severity: Fat Layer Exposed Amount of bleeding with debridement: Mild Bleeding Controlled with: Compression and gauze Patient tolerated procedure well - Additional Wound Wound debrided: coccyx Laterality: Not Applicable Wound Grade/Stage: Stage 3 Type of Debridement: Excisional debridement Anesthesia Used: 4% Lidocaine Solution, 5% Lidocaine Gel Depth: Down to and including healthy tissue, in the subcutaneous layer Percentage of wound debrided: 100 Instrument Used: 3mm curette Tissue Removed: Yellow slough, devitalized tissue Severity: Limited To Skin Breakdown Amount of bleeding with debridement: Mild Bleeding Controlled with: Compression and gauze Patient tolerated procedure: Patient tolerated procedure well Assessment/Plan Active Problems (Last Updated 11/04/19 @ 10:19 by Nia Beyer) Ulcer of left groin with fat layer exposed (Chronic) Pressure ulcer of coccygeal region, stage 3 (Chronic) Morbid obesity (Chronic) Candidal intertrigo (Chronic) Assessment: ulcers of left groin. morbid obesity. Candidal intertrigo. Stage 3 pressure ulcer of coccyx Plan: Samra's ulcers were evaluated today. Her left groin cluster is better. Will have her continue to use Fibracol to the ulcers of her left lower abdomen and coccyx and interdry sache to her abdominal fold area to absorb moisture and prevent ulcers from developing due to the heavy drainage. She should change ABDs to left groin area 2-3 times/day as needed for soiling through of heavy drainage. Diflucan will be continued once weekly to treat candidal intertrigo. Will have her take this weekly to every other week due to sweating and heat and her body habitus and chronic yeast which are causing her to develop ulcers. Encouraged her to increase protein intake and offload the areas of her ulcers. Advised to call with any fever, chills, increased. drainage. Due to the chronic stage 3 pressure ulcer of her coccyx she would benefit from offloading mattress such as alternating pressure mattress. F/u in 3 weeks.
== END 2020-04-12 23:59 ==
LOC: WC 10:00
PROVIDERS: Family Provider Family Medicine; PCP Internal Medicine; Referring Provider Family Medicine; Visit Provider Family Medicine
DX: L89.153 Pressure ulcer of sacral region, stage 3 (principal); L98.492 Non-pressure chronic ulcer of skin of other sites with fat layer exposed; B37.2 Candidiasis of skin and nail; E66.01 Morbid (severe) obesity due to excess calories; Z99.3 Dependence on wheelchair; Z79.84 Long term (current) use of oral hypoglycemic drugs; Z79.82 Long term (current) use of aspirin; Z79.899 Other long term (current) drug therapy
CPT/HCPCS: 11042

== ENCOUNTER → 2020-04-17 13:12 | Outpatient (CLI) | payer MEDICARE, OTHER, SELFPAY ==
[2020-04-17 11:44] VITALS: BMI 50.1
[2020-04-17 15:55] LABS: Absolute Lymphocyte Count 1.38 X10^3/uL (0.83-4.51); Basophil# 0.05 X10^3/uL; Basophil% 0.7 % (0-1); Eosinophil# 0.29 X10^3/uL; Hematocrit 34.7 % (37-47); Hemoglobin 10.3 g/dL (12.0-15.0); Lymphocyte # 1.38 X10^3/ul (4.0); Lymphocyte % 18.9 % (19-41); Mean Corp Hgb Conc 29.7 g/dL (32-36); Mean Corpuscular Hgb 26.9 pg (27.0-32.0); Mean Corpuscular Volume 90.6 fL (81-99); Mean Platelet Vol. 10.1 fl (6.2-12.0); Monocyte# 0.58 X10^3/uL; Monocyte% 7.9 % (0-10); NRBC Flagged by Analyzer 0 % (0-5); Neutrophil # 4.99 X10^3/uL (2.7-7.7); Neutrophil % 68.1 % (47-70); Platelet Count 336 K/mm3 (150-450); RBC Distribution Width CV 18.4 % (11.6-14.6); RBC Distribution Width SD 59.3 fl (35.1-43.9); Red Blood Count 3.83 M/mm3 (4.2-5.4); White Blood Count 7.3 K/mm3 (4.4-11.0)
[2020-04-17 16:32] LABS: Ferritin 27 ng/mL (8-252); Iron 48 ug/dL (50-170)
[2020-04-17 16:49] LABS: Hemoglobin A1c 5.4 % (3.8-5.6)
[2020-04-20 20:07] LABS: PROEL- A/G Ratio 0.7 (0.7-1.7); PROEL- Albumin 3.2 g/dL (2.9-4.4); PROEL- Alpha-1 Globulin 0.3 g/dL (0.0-0.4); PROEL- Gamma Globulin 2.4 g/dL (0.4-1.8); PROEL- Globulin, Total 4.7 g/dL (2.2-3.9); PROEL- TOTAL PROTEIN 7.9 g/dL (6.0-8.5)
== END ==
PROVIDERS: PCP Family Medicine; Visit Provider Family Medicine
DX: E11.9 Type 2 diabetes mellitus without complications (principal); D64.9 Anemia, unspecified; D89.2 Hypergammaglobulinemia, unspecified; L89.153 Pressure ulcer of sacral region, stage 3; E66.01 Morbid (severe) obesity due to excess calories; B37.2 Candidiasis of skin and nail; Z68.43 Body mass index [BMI] 50.0-59.9, adult; Z99.3 Dependence on wheelchair; L98.491 Non-pressure chronic ulcer of skin of other sites limited to breakdown of skin
CPT/HCPCS: 11042; 36415; 82728; 83036; 83540; 84165; 85025; 97597

== ENCOUNTER 2020-05-08 13:24 | Outpatient (RCR) | payer MEDICARE, OTHER, SELFPAY ==
[2020-04-13 00:21] VITALS: BP 122/66; PULSE 80; RESP 16; TEMP 36.5
[2020-04-17 11:44] VITALS: BP 130/64; PULSE 72; RESP 20; TEMP 36.4; BMI 50.1
--- NOTE | 2020-04-17 17:05 | PN.PCM_ITS ---
(1) Wheelchair dependence Status: Chronic Code(s): Z99.3 - Dependence on wheelchair (2) Candidal intertrigo Status: Chronic Code(s): B37.2 - Candidiasis of skin and nail (3) Morbid obesity Status: Chronic Code(s): E66.01 - Morbid (severe) obesity due to excess calories (4) Pressure ulcer of coccygeal region, stage 3 Status: Chronic Code(s): L89.153 - Pressure ulcer of sacral region, stage 3 (5) Ulcer of left groin with fat layer exposed Status: Chronic Code(s): L98.492 - Non-pressure chronic ulcer of skin of other sites with fat layer exposed (6) Debility Status: Chronic Code(s): R53.81 - Other malaise Type of Wound Date of Service: 04/24/20 Chief Complaint: ulcers of left groin and abdomen, pressure ulcer of coccyx History of Wound: Samra is a 74 yo woman who presented to the wound center for ulcers of left groin and abdomen referred by wound nurse at [facility]. She was hospitalized at [facility] for urosepsis multiple times. She was on IV antibiotics of Meropenem and Vancomycin. She is morbidly obese and has problems with candidal intertrigo and has ulcers that open frequently for several years. She was using towels to keep moisture from accumulating under her skin folds but this has been ineffective. She started using InstaDry sheets since discharge from the hospital which has improved the moisture in her folds. She has been using nystatin powder as well. She had been using bacitracin to the ulcer of her abdomen. She has an indwelling suprapubic catheter that is changed monthly. She has heavy drainage from her ulcers. She is wheelchair bound and has an aid that helps her daily for a few hours per day. She denies fever or chills. In May 2019, she reports that she has a chronic ulcer of her coccyx area that was previously surgically debrided that comes and goes and has gotten worse since she was in the [facility] in early 2018. Progress of Wound: Samra is here for follow up of ulcers of her left groin and coccyx. She is tolerating Fibracol dressings to left groin and continues to use Interdry strips and ABD pads to her groin area to wick away moisture for her very heavy drainage. She has had improvement in erythema and decreased size of her ulcers of abdomen/groin but she has continued to have increased perspiration and moisture to the area due to warmer temperatures. She has had increase in pain to coccyx ulcer but this has decreased in size. She has very heavy drainage from the ulcers of her left groin. She is tolerating fibracol to her coccyx ulcer and has moderate to heavy drainage from this ulcer. Her mid- abdomen ulcer remains healed. She denies fever or chills or erythema. 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 - Physical Exam Vital Signs Temp Pulse Resp BP 97.5 F L 72 20 H 130/64 H 04/17/20 11:44 04/17/20 11:44 04/17/20 11:44 04/17/20 11:44 General: Alert, Oriented x3, Cooperative, No apparent distress HEENT: Atraumatic, Normocephalic Oral: Moist Mucosa Abdomen: Obese Extremities: Edema Wound Measurements and Assessment WC - Nurse 1 - General Ulcer Measurement Start: 04/17/20 11:44 Freq: Status: Active Protocol: Activity Type Activity Date Activity User E-Sign Co-Sign Detail Recorded Client Recorded Date Recorded By Document 04/17/20 11:44 DL [id number] 04/17/20 11:56 DL 04/17/20 11:44 Wound Center Nurse 1 [Ulcer Assessment] #3 Coccyx -Current Size (cm) - Length 1 -Current Size (cm) - Width 2.3 -Current Size (cm) - Depth 0.2 -Total Square Cm 2.3 -Photo Taken No -Exudate Amt Small -Exudate Type Serosanguineous -Wound Margin Thickened -Granulation Amt Medium (34-66%) -Granulation Quality Red -Necrosis Amt Medium (34-66%) -Necrotic Tissue Type Adherent Slough -Structure Exposed N/A -Texture (Jessica-wound Skin Appearance) Scarring -Moisture (Jessica-wound Skin Appearance Dry/Scaly ) -Color (Jessica-wound Skin Appearance) No Abnormality -Temperature (Jessica-wound Skin No Abnormality Appearance) (Pt Warm) -Tenderness on Palpation (Jessica-wound No Skin Appearance) -Ulcer Cleansing Wound Cleanser -Foul Odor after Cleansing No -Anesthetic Used 5% Lidocaine Gel #1 left abd fold cluster -Current Size (cm) - Length 6 -Current Size (cm) - Width 12 -Current Size (cm) - Depth 0.1 -Total Square Cm 72 -Photo Taken No -Exudate Amt Small -Exudate Type Serosanguineous -Wound Margin Indistinct, Non -Visible -Granulation Amt Medium (34-66%) -Granulation Quality Red -Necrosis Amt Medium (34-66%) -Necrotic Tissue Type Adherent Slough -Structure Exposed N/A -Texture (Jessica-wound Skin Appearance) Excoriation, Scarring -Moisture (Jessica-wound Skin Appearance Weeping ) -Color (Jessica-wound Skin Appearance) Erythema,Rubor -Temperature (Jessica-wound Skin No Abnormality Appearance) (Pt Warm) -Tenderness on Palpation (Jessica-wound No Skin Appearance) -Ulcer Cleansing Wound Cleanser -Foul Odor after Cleansing No -Anesthetic Used 4% Lidocaine Solution WC - Nurse 2 - General Ulcer CM Notes Start: 04/17/20 11:44 Freq: Status: Active Protocol: Activity Type Activity Date Activity User E-Sign Co-Sign Detail Recorded Client Recorded Date Recorded By Document 04/17/20 12:25 DV [id number] 04/17/20 12:32 DV 04/17/20 12:25 Wound Center Nurse 2 [Procedure/Treatment] #3 Coccyx -Time 12:26 -Correct Patient Yes -Correct Side, Site, Position Yes -Correct Procedure Yes -Procedure Performed Yes -Type of Procedure Debridement -Clinical Debridement Subcutaneous -Post Debridement Size (cm) - Length 0.6 -Post Debridement Size (cm) - Width 0.5 -Post Debridement Size (cm) - Depth 0.3 -Total Square Cm 0.30 -Wound/Ulcer Outcome Not Healed -Ulcer Cleansing Rinsed/ Irrigated with Saline -Foul Odor after Cleansing No -Bioengineered Tissue No -Bleeding Controlled with Pressure -Offloading No -Treatment Response Procedure Tolerated Well #1 left abd fold cluster -Time 12:30 -Correct Patient Yes -Correct Side, Site, Position Yes -Correct Procedure No -Procedure Performed No -Post Debridement Size (cm) - Length 12.0 -Post Debridement Size (cm) - Width 3.0 -Post Debridement Size (cm) - Depth 0.1 -Total Square Cm 36.00 -Wound/Ulcer Outcome Not Healed -Ulcer Cleansing Rinsed/ Irrigated with Saline -Foul Odor after Cleansing No -Bioengineered Tissue No -Bleeding Controlled with Pressure -Offloading No -Treatment Response Procedure Tolerated Well [See Physician Procedure note for Specifics] Pain Scale: 0-10 Numeric [Pain] -Is Patient Pain Free? Yes Psych/Mental Status: Normal Affect, Appropriate Debridement Note Post-Debridement Measurements/Treatment WC - Nurse 2 - General Ulcer CM Notes Start: 04/17/20 11:44 Freq: Status: Active Protocol: Activity Type Activity Date Activity User E-Sign Co-Sign Detail Recorded Client Recorded Date Recorded By Document 04/17/20 12:25 DV [id number] 04/17/20 12:32 DV 04/17/20 12:25 Wound Center Nurse 2 #3 Coccyx -Time 12:26 -Correct Patient Yes -Correct Side, Site, Position Yes -Correct Procedure Yes -Procedure Performed Yes -Type of Procedure Debridement -Clinical Debridement Subcutaneous -Post Debridement Size (cm) - Length 0.6 -Post Debridement Size (cm) - Width 0.5 -Post Debridement Size (cm) - Depth 0.3 -Total Square Cm 0.30 -Wound/Ulcer Outcome Not Healed -Ulcer Cleansing Rinsed/ Irrigated with Saline -Foul Odor after Cleansing No -Bioengineered Tissue No -Bleeding Controlled with Pressure -Offloading No -Treatment Response Procedure Tolerated Well #1 left abd fold cluster -Time 12:30 -Correct Patient Yes -Correct Side, Site, Position Yes -Correct Procedure No -Procedure Performed No -Post Debridement Size (cm) - Length 12.0 -Post Debridement Size (cm) - Width 3.0 -Post Debridement Size (cm) - Depth 0.1 -Total Square Cm 36.00 -Wound/Ulcer Outcome Not Healed -Ulcer Cleansing Rinsed/ Irrigated with Saline -Foul Odor after Cleansing No -Bioengineered Tissue No -Bleeding Controlled with Pressure -Offloading No -Treatment Response Procedure Tolerated Well Pain Scale: 0-10 Numeric Is Patient Pain Free? Yes Wound debrided: coccyx Laterality: Not Applicable Wound Grade/Stage: Stage 3 Type of Debridement: Excisional debridement Anesthesia Used: 4% Lidocaine Solution, 5% Lidocaine Gel Depth: Down to and including healthy tissue, in the subcutaneous layer, to muscle Percentage of wound debrided: 100 Instrument Used: 3mm curette Tissue Removed: devitalized tissue, yellow slough Severity: Fat Layer Exposed Amount of bleeding with debridement: Mild Bleeding Controlled with: Compression and gauze Patient tolerated procedure well - Additional Wound Wound debrided: left groin cluster Laterality: Left Type of Debridement: Selective debridement Anesthesia Used: 4% Lidocaine Solution Depth: Down to and including healthy tissue Percentage of wound debrided: 50 Tissue Removed: yellow slough Severity: Limited To Skin Breakdown Amount of bleeding with debridement: Mild Bleeding Controlled with: Compression and gauze Patient tolerated procedure: Patient tolerated procedure well Assessment/Plan Assessment: ulcers of left groin. morbid obesity. Candidal intertrigo. Stage 3 pressure ulcer of coccyx Plan: Samra's ulcers were evaluated today. Her left groin cluster is better. Will have her continue to use Fibracol to the ulcers of her left lower abdomen and coccyx and interdry sache to her abdominal fold area to absorb moisture and prevent ulcers from developing due to the heavy drainage. She should change ABDs to left groin area 2-3 times/day as needed for soiling through of heavy drainage. Diflucan will be continued once weekly to treat candidal intertrigo. Will have her take this weekly to every other week due to sweating and heat and her body habitus and chronic yeast which are causing her to develop ulcers. Encouraged her to increase protein intake and offload the areas of her ulcers. Advised to call with any fever, chills, increased. drainage. Due to the chronic stage 3 pressure ulcer of her coccyx she would benefit from offloading mattress such as alternating pressure mattress. 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 F/u in 3 weeks.
[2020-05-08 11:13] VITALS: BP 118/62; PULSE 78; RESP 16; TEMP 36.6; BMI 50.1
--- NOTE | 2020-05-08 18:03 | PCM.WC.PN ---
(1) Wheelchair dependence Status: Chronic Code(s): Z99.3 - Dependence on wheelchair (2) Candidal intertrigo Status: Chronic Code(s): B37.2 - Candidiasis of skin and nail (3) Morbid obesity Status: Chronic Code(s): E66.01 - Morbid (severe) obesity due to excess calories (4) Pressure ulcer of coccygeal region, stage 3 Status: Chronic Code(s): L89.153 - Pressure ulcer of sacral region, stage 3 (5) Ulcer of left groin with fat layer exposed Status: Chronic Code(s): L98.492 - Non-pressure chronic ulcer of skin of other sites with fat layer exposed (6) Debility Status: Chronic Code(s): R53.81 - Other malaise Type of Wound Date of Service: 05/08/20 Chief Complaint: ulcers of left groin and abdomen, pressure ulcer of coccyx History of Wound: Samra is a 74 yo woman who presented to the wound center for ulcers of left groin and abdomen referred by wound nurse at [facility]. She was hospitalized at [facility] for urosepsis multiple times. She was on IV antibiotics of Meropenem and Vancomycin. She is morbidly obese and has problems with candidal intertrigo and has ulcers that open frequently for several years. She was using towels to keep moisture from accumulating under her skin folds but this has been ineffective. She started using InstaDry sheets since discharge from the hospital which has improved the moisture in her folds. She has been using nystatin powder as well. She had been using bacitracin to the ulcer of her abdomen. She has an indwelling suprapubic catheter that is changed monthly. She has heavy drainage from her ulcers. She is wheelchair bound and has an aid that helps her daily for a few hours per day. She denies fever or chills. In May 2019, she reports that she has a chronic ulcer of her coccyx area that was previously surgically debrided that comes and goes and has gotten worse since she was in the senior living in early 2018. Progress of Wound: Samra is here for follow up of ulcers of her left groin and coccyx. She is tolerating Fibracol dressings to left groin and continues to use Interdry strips and ABD pads to her groin area to wick away moisture for her very heavy drainage. She has had improvement in erythema and decreased size of her ulcers of abdomen/groin but she has continued to have increased perspiration and moisture to the area due to warmer temperatures. She has had increase in pain to coccyx ulcer but this has decreased in size. She has very heavy drainage from the ulcers of her left groin. She is tolerating fibracol to her coccyx ulcer and has moderate to heavy drainage from this ulcer. Her mid-abdomen ulcer remains healed. She denies fever or chills or erythema. 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 - Physical Exam Vital Signs Temp Pulse Resp BP 97.9 F 78 16 118/62 05/08/20 11:13 05/08/20 11:13 05/08/20 11:13 05/08/20 11:13 General: Alert, Oriented x3, Cooperative, No apparent distress HEENT: Atraumatic, Normocephalic Oral: Moist Mucosa Abdomen: Obese Extremities: Edema Skin: Ulcer/ Wound Wound Measurements and Assessment WC - Nurse 1 - General Ulcer Measurement Start: 04/17/20 11:44 Freq: Status: Active Protocol: Activity Type Activity Date Activity User E-Sign Co-Sign Detail Recorded Client Recorded Date Recorded By Document 05/08/20 11:13 [facility] [id number] 05/08/20 11:19 [facility] 05/08/20 11:13 Wound Center Nurse 1 [Ulcer Assessment] #3 Coccyx -Combined with other wound No -Current Size (cm) - Length 0.3 -Current Size (cm) - Width 1.7 -Current Size (cm) - Depth 0.7 -Total Square Cm 0.51 -Photo Taken No -Epithelialization None Present -Tunneling No -Undermining/Tunneling No -Circular Undermining No -Exudate Amt Small -Exudate Type Serosanguineous -Wound Margin Thickened -Granulation Amt Medium (34-66%) -Granulation Quality Pale,Scalp Level -Slough/Fibrin Yes -Necrosis Amt Medium (34-66%) -Necrotic Tissue Type Adherent Slough -Texture (Jessica-wound Skin Appearance) Assessed, Scarring -Moisture (Jessica-wound Skin Appearance Assessed ) -Color (Jessica-wound Skin Appearance) Assessed -Temperature (Jessica-wound Skin No Abnormality Appearance) (Pt Warm) -Tenderness on Palpation (Jessica-wound Yes Skin Appearance) -Ulcer Cleansing soapy water -Foul Odor after Cleansing No -Anesthetic Used 5% Lidocaine Gel #1 left abd fold cluster -Combined with other wound No -Current Size (cm) - Length 0.5 -Current Size (cm) - Width 2 -Current Size (cm) - Depth 0.1 -Total Square Cm 1.0 -Photo Taken No -Epithelialization Large 67-100% -Tunneling No -Undermining/Tunneling No -Circular Undermining No -Exudate Amt Small -Exudate Type Sanguineous -Wound Margin Flat & Intact -Granulation Amt Large (67-100%) -Granulation Quality Red -Slough/Fibrin No -Necrosis Amt None Present (0 %) -Texture (Jessica-wound Skin Appearance) Assessed, Scarring -Moisture (Jessica-wound Skin Appearance Assessed,Dry/ ) Scaly -Color (Jessica-wound Skin Appearance) Assessed -Temperature (Jessica-wound Skin No Abnormality Appearance) (Pt Warm) -Tenderness on Palpation (Jessica-wound No Skin Appearance) -Ulcer Cleansing soapy water -Foul Odor after Cleansing No -Anesthetic Used 4% Lidocaine Solution WC - Nurse 2 - General Ulcer CM Notes Start: 04/17/20 11:44 Freq: Status: Active Protocol: Activity Type Activity Date Activity User E-Sign Co-Sign Detail Recorded Client Recorded Date Recorded By Document 05/08/20 11:48 DV [id number] 05/08/20 12:03 DV 05/08/20 11:48 Wound Center Nurse 2 [Procedure/Treatment] #3 Coccyx -Time 11:56 -Correct Patient Yes -Correct Side, Site, Position Yes -Correct Procedure Yes -Procedure Performed Yes -Type of Procedure Debridement -Clinical Debridement Subcutaneous -Post Debridement Size (cm) - Length 0.8 -Post Debridement Size (cm) - Width 0.8 -Post Debridement Size (cm) - Depth 0.3 -Total Square Cm 0.64 -Wound/Ulcer Outcome Not Healed -Ulcer Cleansing Rinsed/ Irrigated with Saline -Foul Odor after Cleansing No -Bioengineered Tissue No -Bleeding Controlled with Pressure -Offloading No -Treatment Response Procedure Tolerated Well #1 left abd fold cluster -Time 11:53 -Correct Patient Yes -Correct Side, Site, Position Yes -Correct Procedure No -Procedure Performed No -Type of Procedure Debridement -Clinical Debridement Subcutaneous -Post Debridement Size (cm) - Length 1.0 -Post Debridement Size (cm) - Width 5.0 -Post Debridement Size (cm) - Depth 0.1 -Total Square Cm 5.00 -Wound/Ulcer Outcome Not Healed -Ulcer Cleansing Rinsed/ Irrigated with Saline -Foul Odor after Cleansing No -Bioengineered Tissue No -Bleeding Controlled with Pressure -Offloading No -Treatment Response Procedure Tolerated Well [See Physician Procedure note for Specifics] Pain Scale: 0-10 Numeric [Pain] -Is Patient Pain Free? Yes Psych/Mental Status: Normal Affect, Appropriate Debridement Note Post-Debridement Measurements/Treatment WC - Nurse 2 - General Ulcer CM Notes Start: 04/17/20 11:44 Freq: Status: Active Protocol: Activity Type Activity Date Activity User E-Sign Co-Sign Detail Recorded Client Recorded Date Recorded By Document 04/17/20 12:25 DV [id number] 04/17/20 12:32 DV Document 05/08/20 11:48 DV [id number] 05/08/20 12:03 DV 04/17/20 05/08/20 12:25 11:48 Wound Center Nurse 2 #3 Coccyx -Time 12:26 11:56 -Correct Patient Yes Yes -Correct Side, Site, Position Yes Yes -Correct Procedure Yes Yes -Procedure Performed Yes Yes -Type of Procedure Debridement Debridement -Clinical Debridement Subcutaneous Subcutaneous -Post Debridement Size (cm) - Length 0.6 0.8 -Post Debridement Size (cm) - Width 0.5 0.8 -Post Debridement Size (cm) - Depth 0.3 0.3 -Total Square Cm 0.30 0.64 -Wound/Ulcer Outcome Not Healed Not Healed -Ulcer Cleansing Rinsed/ Rinsed/ Irrigated with Irrigated with Saline Saline -Foul Odor after Cleansing No No -Bioengineered Tissue No No -Bleeding Controlled with Pressure Pressure -Offloading No No -Treatment Response Procedure Procedure Tolerated Well Tolerated Well #1 left abd fold cluster -Time 12:30 11:53 -Correct Patient Yes Yes -Correct Side, Site, Position Yes Yes -Correct Procedure No No -Procedure Performed No No -Type of Procedure Debridement -Clinical Debridement Subcutaneous -Post Debridement Size (cm) - Length 12.0 1.0 -Post Debridement Size (cm) - Width 3.0 5.0 -Post Debridement Size (cm) - Depth 0.1 0.1 -Total Square Cm 36.00 5.00 -Wound/Ulcer Outcome Not Healed Not Healed -Ulcer Cleansing Rinsed/ Rinsed/ Irrigated with Irrigated with Saline Saline -Foul Odor after Cleansing No No -Bioengineered Tissue No No -Bleeding Controlled with Pressure Pressure -Offloading No No -Treatment Response Procedure Procedure Tolerated Well Tolerated Well Pain Scale: 0-10 Numeric Is Patient Pain Free? Yes Yes Wound debrided: coccyx Laterality: Not Applicable Type of Debridement: Excisional debridement Anesthesia Used: 4% Lidocaine Solution, 5% Lidocaine Gel Depth: Down to and including healthy tissue, in the subcutaneous layer Percentage of wound debrided: 100 Instrument Used: 3mm curette Tissue Removed: yellow slough, devitalized tissue Severity: Fat Layer Exposed Amount of bleeding with debridement: Mild Bleeding Controlled with: Compression and gauze Patient tolerated procedure well - Additional Wound Wound debrided: left abdominal fold/groin cluster Laterality: Left Type of Debridement: Selective debridement Anesthesia Used: 4% Lidocaine Solution Depth: Down to and including healthy tissue, in the subcutaneous layer Percentage of wound debrided: 100 Instrument Used: - - gauze Tissue Removed: yellow slough, devitalized tissue Severity: Fat Layer Exposed Amount of bleeding with debridement: Mild Bleeding Controlled with: Compression and gauze Patient tolerated procedure: Patient tolerated procedure well Assessment/Plan Active Problems (Last Updated 11/04/19 @ 10:19 by Nia Beyer) Wheelchair dependence (Chronic) Ulcer of left groin with fat layer exposed (Chronic) Pressure ulcer of coccygeal region, stage 3 (Chronic) Morbid obesity (Chronic) Candidal intertrigo (Chronic) Assessment: ulcers of left groin. morbid obesity. Candidal intertrigo. Stage 3 pressure ulcer of coccyx Plan: Samra's ulcers were evaluated today. Her left groin cluster is better. Will have her continue to use Fibracol to the ulcers of her left lower abdomen and coccyx and interdry sache to her abdominal fold area to absorb moisture and prevent ulcers from developing due to the heavy drainage. She should change ABDs to left groin area 2-3 times/day as needed for soiling through of heavy drainage. Diflucan will be continued once weekly to treat candidal intertrigo. Will have her take this weekly to every other week due to sweating and heat and her body habitus and chronic yeast which are causing her to develop ulcers. Encouraged her to increase protein intake and offload the areas of her ulcers. Advised to call with any fever, chills, increased. drainage. Due to the chronic stage 3 pressure ulcer of her coccyx she would benefit from offloading mattress such as alternating pressure mattress. 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 F/u in 3 weeks.
== END 2020-05-12 23:59 ==
LOC: WC 13:24
PROVIDERS: Family Provider Family Medicine; PCP Internal Medicine; Referring Provider Family Medicine; Visit Provider Family Medicine
DX: L89.153 Pressure ulcer of sacral region, stage 3 (principal); E66.01 Morbid (severe) obesity due to excess calories; B37.2 Candidiasis of skin and nail; Z68.43 Body mass index [BMI] 50.0-59.9, adult; Z99.3 Dependence on wheelchair; L98.491 Non-pressure chronic ulcer of skin of other sites limited to breakdown of skin
CPT/HCPCS: 11042

== ENCOUNTER → 2020-05-11 13:32 | Outpatient (CLI) | payer MEDICARE, OTHER, SELFPAY ==
[2020-05-08 11:13] VITALS: BMI 50.1
[2020-05-11 16:07] LABS: Absolute Lymphocyte Count 1.77 X10^3/uL (0.83-4.51); Absolute Neutrophil Count 5.2 X10^3/uL (2.0-7.7); Basophil# 0.05 X10^3/uL; Basophil% 0.6 % (0-1); Eosinophil# 0.32 X10^3/uL; Eosinophils% 3.9 % (0-5); Hematocrit 33.1 % (37-47); Hemoglobin 9.9 g/dL (12.0-15.0); Lymphocyte # 1.77 X10^3/ul (4.0); Lymphocyte % 21.8 % (19-41); Mean Corp Hgb Conc 29.9 g/dL (32-36); Mean Corpuscular Hgb 27.5 pg (27.0-32.0); Mean Corpuscular Volume 91.9 fL (81-99); Mean Platelet Vol. 10.1 fl (6.2-12.0); Monocyte# 0.74 X10^3/uL; Monocyte% 9.1 % (0-10); NRBC Flagged by Analyzer 0 % (0-5); Neutrophil # 5.18 X10^3/uL (2.7-7.7); Neutrophil % 63.9 % (47-70); Platelet Count 398 K/mm3 (150-450); RBC Distribution Width CV 17.8 % (11.6-14.6); RBC Distribution Width SD 59.7 fl (35.1-43.9); White Blood Count 8.1 K/mm3 (4.4-11.0)
== END ==
PROVIDERS: PCP Family Medicine; Visit Provider Family Medicine
DX: D64.9 Anemia, unspecified (principal)
CPT/HCPCS: 36415; 85025

== ENCOUNTER 2020-06-12 11:00 | Outpatient (RCR) | payer MEDICARE, OTHER, SELFPAY ==
[2020-05-13 00:21] VITALS: BP 118/62; PULSE 78; RESP 16; TEMP 36.6
[2020-05-22 11:32] VITALS: BP 115/54; PULSE 69; RESP 18; TEMP 36.3; BMI 50.1
--- NOTE | 2020-05-22 16:34 | PCM.WC.PN ---
(1) Ulcer of left groin with fat layer exposed Status: Chronic Current Visit: Yes Code(s): L98.492 - Non-pressure chronic ulcer of skin of other sites with fat layer exposed (2) Pressure ulcer of coccygeal region, stage 3 Status: Chronic Current Visit: Yes Code(s): L89.153 - Pressure ulcer of sacral region, stage 3 (3) Morbid obesity Status: Chronic Current Visit: Yes Code(s): E66.01 - Morbid (severe) obesity due to excess calories (4) Debility Status: Chronic Current Visit: Yes Code(s): R53.81 - Other malaise (5) Candidal intertrigo Status: Chronic Current Visit: Yes Code(s): B37.2 - Candidiasis of skin and nail Type of Wound Date of Service: 05/22/20 Chief Complaint: ulcers of left groin and abdomen, pressure ulcer of coccyx History of Wound: Samra is a 74 yo woman who presented to the wound center for ulcers of left groin and abdomen referred by wound nurse at [facility]. She was hospitalized at [facility] for urosepsis multiple times. She was on IV antibiotics of Meropenem and Vancomycin. She is morbidly obese and has problems with candidal intertrigo and has ulcers that open frequently for several years. She was using towels to keep moisture from accumulating under her skin folds but this has been ineffective. She started using InstaDry sheets since discharge from the hospital which has improved the moisture in her folds. She has been using nystatin powder as well. She had been using bacitracin to the ulcer of her abdomen. She has an indwelling suprapubic catheter that is changed monthly. She has heavy drainage from her ulcers. She is wheelchair bound and has an aid that helps her daily for a few hours per day. She denies fever or chills. In May 2019, she reports that she has a chronic ulcer of her coccyx area that was previously surgically debrided that comes and goes and has gotten worse [facility]. Progress of Wound: Samra is here for follow up of ulcers of her left groin and coccyx. She is tolerating Fibracol dressings to left groin and continues to use Interdry strips and ABD pads to her groin area to wick away moisture for her very heavy drainage. She has had improvement in erythema and decreased size. She has had increase in pain to coccyx ulcer but this has decreased in size. She has very heavy drainage from the ulcers of her left groin. She is tolerating fibracol to her coccyx ulcer and has moderate to heavy drainage from this ulcer. Her mid-abdomen ulcer remains healed. She denies fever or chills or erythema. 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 - Physical Exam Vital Signs Temp Pulse Resp BP 97.3 F L 69 18 115/54 L 05/22/20 11:32 05/22/20 11:32 05/22/20 11:32 05/22/20 11:32 General: Alert, Oriented x3, Cooperative, No apparent distress HEENT: Atraumatic, Normocephalic Oral: Moist Mucosa Abdomen: Obese Skin: Ulcer/ Wound Wound Measurements and Assessment WC - Nurse 1 - General Ulcer Measurement Start: 05/22/20 11:32 Freq: Status: Active Protocol: Activity Type Activity Date Activity User E-Sign Co-Sign Detail Recorded Client Recorded Date Recorded By Document 05/22/20 11:32 [id number] 05/22/20 11:34 RB 05/22/20 11:32 Wound Center Nurse 1 [Ulcer Assessment] #3 Coccyx -Combined with other wound No -Current Size (cm) - Length 0.5 -Current Size (cm) - Width 2.5 -Current Size (cm) - Depth 0.4 -Total Square Cm 1.25 -Tunneling No -Undermining/Tunneling No -Circular Undermining No -Exudate Amt Small -Exudate Type Serosanguineous -Wound Margin Thickened -Granulation Amt Medium (34-66%) -Granulation Quality [place] -Slough/Fibrin Yes -Necrosis Amt Small (1-33%) -Necrotic Tissue Type Adherent Slough -Structure Exposed N/A -Texture (Jessica-wound Skin Appearance) Assessed, Scarring -Moisture (Jessica-wound Skin Appearance Assessed ) -Color (Jessica-wound Skin Appearance) Assessed -Temperature (Jessica-wound Skin No Abnormality Appearance) (Pt Warm) -Tenderness on Palpation (Jessica-wound No Skin Appearance) -Ulcer Cleansing Wound Cleanser -Foul Odor after Cleansing No -Anesthetic Used 5% Lidocaine Gel #1 left abd fold cluster -Combined with other wound No -Current Size (cm) - Length 2.5 -Current Size (cm) - Width 6.5 -Current Size (cm) - Depth 0.1 -Total Square Cm 16.25 -Tunneling No -Undermining/Tunneling No -Circular Undermining No -Exudate Amt Small -Exudate Type Serosanguineous -Wound Margin Flat & Intact -Granulation Amt Medium (34-66%) -Granulation Quality [place],Red -Slough/Fibrin Yes -Necrosis Amt Small (1-33%) -Necrotic Tissue Type Adherent Slough -Structure Exposed N/A -Texture (Jessica-wound Skin Appearance) Assessed, Excoriation -Moisture (Jessica-wound Skin Appearance Assessed ) -Color (Jessica-wound Skin Appearance) Assessed -Temperature (Jessica-wound Skin No Abnormality Appearance) (Pt Warm) -Tenderness on Palpation (Jessica-wound No Skin Appearance) -Ulcer Cleansing Wound Cleanser -Foul Odor after Cleansing No -Anesthetic Used 5% Lidocaine Gel WC - Nurse 2 - General Ulcer CM Notes Start: 05/22/20 11:32 Freq: Status: Active Protocol: Activity Type Activity Date Activity User E-Sign Co-Sign Detail Recorded Client Recorded Date Recorded By Document 05/22/20 12:00 DV [id number] 05/22/20 12:09 DV 05/22/20 12:00 Wound Center Nurse 2 [Procedure/Treatment] #3 Coccyx -Time 12:03 -Correct Patient Yes -Correct Side, Site, Position Yes -Correct Procedure Yes -Procedure Performed Yes -Type of Procedure Debridement -Clinical Debridement Subcutaneous -Post Debridement Size (cm) - Length 0.5 -Post Debridement Size (cm) - Width 0.5 -Post Debridement Size (cm) - Depth 0.3 -Total Square Cm 0.25 -Wound/Ulcer Outcome Not Healed -Ulcer Cleansing Rinsed/ Irrigated with Saline -Foul Odor after Cleansing No -Bioengineered Tissue No -Bleeding Controlled with Pressure -Offloading No -Treatment Response Procedure Tolerated Well #1 left abd fold cluster -Time 12:01 -Correct Patient Yes -Correct Side, Site, Position Yes -Correct Procedure Yes -Procedure Performed Yes -Type of Procedure Debridement -Clinical Debridement Selective -Post Debridement Size (cm) - Length 6.0 -Post Debridement Size (cm) - Width 3.0 -Post Debridement Size (cm) - Depth 0.1 -Total Square Cm 18.00 -Wound/Ulcer Outcome Not Healed -Ulcer Cleansing Rinsed/ Irrigated with Saline -Foul Odor after Cleansing No -Bioengineered Tissue No -Bleeding Controlled with Pressure -Offloading No -Treatment Response Procedure Tolerated Well [See Physician Procedure note for Specifics] Pain Scale: 0-10 Numeric [Pain] -Is Patient Pain Free? Yes Psych/Mental Status: Normal Affect, Appropriate Debridement Note Post-Debridement Measurements/Treatment WC - Nurse 2 - General Ulcer CM Notes Start: 05/22/20 11:32 Freq: Status: Active Protocol: Activity Type Activity Date Activity User E-Sign Co-Sign Detail Recorded Client Recorded Date Recorded By Document 05/22/20 12:00 DV [id number] 05/22/20 12:09 DV 05/22/20 12:00 Wound Center Nurse 2 #3 Coccyx -Time 12:03 -Correct Patient Yes -Correct Side, Site, Position Yes -Correct Procedure Yes -Procedure Performed Yes -Type of Procedure Debridement -Clinical Debridement Subcutaneous -Post Debridement Size (cm) - Length 0.5 -Post Debridement Size (cm) - Width 0.5 -Post Debridement Size (cm) - Depth 0.3 -Total Square Cm 0.25 -Wound/Ulcer Outcome Not Healed -Ulcer Cleansing Rinsed/ Irrigated with Saline -Foul Odor after Cleansing No -Bioengineered Tissue No -Bleeding Controlled with Pressure -Offloading No -Treatment Response Procedure Tolerated Well #1 left abd fold cluster -Time 12:01 -Correct Patient Yes -Correct Side, Site, Position Yes -Correct Procedure Yes -Procedure Performed Yes -Type of Procedure Debridement -Clinical Debridement Selective -Post Debridement Size (cm) - Length 6.0 -Post Debridement Size (cm) - Width 3.0 -Post Debridement Size (cm) - Depth 0.1 -Total Square Cm 18.00 -Wound/Ulcer Outcome Not Healed -Ulcer Cleansing Rinsed/ Irrigated with Saline -Foul Odor after Cleansing No -Bioengineered Tissue No -Bleeding Controlled with Pressure -Offloading No -Treatment Response Procedure Tolerated Well Pain Scale: 0-10 Numeric Is Patient Pain Free? Yes Wound debrided: coccyx Type of Debridement: Excisional debridement Anesthesia Used: 4% Lidocaine Solution Depth: Down to and including healthy tissue, in the subcutaneous layer Percentage of wound debrided: 100 Instrument Used: 3mm curette Tissue Removed: yellow slough, devitalized tissue Severity: Fat Layer Exposed Amount of bleeding with debridement: Mild Bleeding Controlled with: Compression and gauze Patient tolerated procedure well - Additional Wound Wound debrided: left groin cluster Type of Debridement: Selective debridement Anesthesia Used: 4% Lidocaine Solution Depth: Down to and including healthy tissue, in the subcutaneous layer Percentage of wound debrided: 40 Instrument Used: - - gauze Tissue Removed: yellow slough, devitalized tissue Severity: Fat Layer Exposed Amount of bleeding with debridement: Mild Bleeding Controlled with: Compression and gauze Patient tolerated procedure: Patient tolerated procedure well Assessment/Plan Active Problems (Last Updated 11/04/19 @ 10:19 by Nia Beyer) Ulcer of left groin with fat layer exposed (Chronic) Pressure ulcer of coccygeal region, stage 3 (Chronic) Morbid obesity (Chronic) Debility (Chronic) Candidal intertrigo (Chronic) Assessment: ulcers of left groin. morbid obesity. Candidal intertrigo. Stage 3 pressure ulcer of coccyx Plan: Samra's ulcers were evaluated today. Her left groin cluster is much better. Will have her continue to use Fibracol to the ulcers of her left lower abdomen and coccyx and interdry sache to her abdominal fold area to absorb moisture and prevent ulcers from developing due to the heavy drainage. She should change ABDs to left groin area 2-3 times/day as needed for soiling through of heavy drainage. Diflucan will be continued once weekly to treat candidal intertrigo. Will have her take this weekly to every other week due to sweating and heat and her body habitus and chronic yeast which are causing her to develop ulcers. Encouraged her to increase protein intake and offload the areas of her ulcers. Advised to call with any fever, chills, increased. drainage. Due to the chronic stage 3 pressure ulcer of her coccyx she would benefit from offloading mattress such as alternating pressure mattress. 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 F/u in 3 weeks.
[2020-06-12 11:20] VITALS: BP 118/70; PULSE 69; RESP 18; TEMP 36.2; BMI 50.1
--- NOTE | 2020-06-12 13:56 | PN.PCM_ITS ---
(1) Ulcer of left groin with fat layer exposed Status: Chronic Current Visit: Yes Code(s): L98.492 - Non-pressure chronic ulcer of skin of other sites with fat layer exposed (2) Pressure ulcer of coccygeal region, stage 3 Status: Chronic Current Visit: Yes Code(s): L89.153 - Pressure ulcer of sacral region, stage 3 (3) Morbid obesity Status: Chronic Current Visit: Yes Code(s): E66.01 - Morbid (severe) obesity due to excess calories (4) Debility Status: Chronic Current Visit: Yes Code(s): R53.81 - Other malaise (5) Candidal intertrigo Status: Chronic Current Visit: Yes Code(s): B37.2 - Candidiasis of skin and nail Type of Wound Date of Service: 06/12/20 Chief Complaint: ulcers of left groin and abdomen, pressure ulcer of coccyx History of Wound: Samra is a 74 yo woman who presented to the wound center for ulcers of left groin and abdomen referred by wound nurse at [facility]. She was hospitalized at [facility] for urosepsis multiple times. She was on IV antibiotics of Meropenem and Vancomycin. She is morbidly obese and has problems with candidal intertrigo and has ulcers that open frequently for several years. She was using towels to keep moisture from accumulating under her skin folds but this has been ineffective. She started using InstaDry sheets since discharge from the hospital which has improved the moisture in her folds. She has been using nystatin powder as well. She had been using bacitracin to the ulcer of her abdomen. She has an indwelling suprapubic catheter that is changed monthly. She has heavy drainage from her ulcers. She is wheelchair bound and has an aid that helps her daily for a few hours per day. She denies fever or chills. In May 2019, she reports that she has a chronic ulcer of her coccyx area that was previously surgically debrided that comes and goes and has gotten worse since she was in the assisted in early 2018. Progress of Wound: Samra is here for follow up of ulcers of her left groin and coccyx. She is tolerating Fibracol dressings to left groin and continues to use Intradry strips and ABD pads to her groin area to wick away moisture for her very heavy drainage. She has had improvement in erythema but increased size due to increased perspiration. She has had increase in pain to coccyx ulcer but this has decreased in size. She has very heavy drainage from the ulcers of her left groin. She is tolerating fibracol to her coccyx ulcer and has moderate to heavy drainage from this ulcer. Her mid-abdomen ulcer remains healed. She denies fever or chills or erythema. 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 - Physical Exam Vital Signs Temp Pulse Resp BP 97.1 F L 69 18 118/70 06/12/20 11:20 06/12/20 11:20 06/12/20 11:20 06/12/20 11:20 General: Alert, Oriented x3, Cooperative, No apparent distress HEENT: Atraumatic, Normocephalic Oral: Moist Mucosa Abdomen: Obese Extremities: Edema Skin: Ulcer/ Wound Wound Measurements and Assessment WC - Nurse 1 - General Ulcer Measurement Start: 05/22/20 11:32 Freq: Status: Active Protocol: Activity Type Activity Date Activity User E-Sign Co-Sign Detail Recorded Client Recorded Date Recorded By Document 06/12/20 11:20 RB [id number] 06/12/20 11:23 RB 06/12/20 11:20 Wound Center Nurse 1 [Ulcer Assessment] #3 Coccyx -Combined with other wound No -Current Size (cm) - Length 0.5 -Current Size (cm) - Width 0.6 -Current Size (cm) - Depth 0.3 -Total Square Cm 0.30 -Tunneling No -Undermining/Tunneling No -Circular Undermining No -Exudate Amt Small -Exudate Type Serosanguineous -Wound Margin Thickened -Granulation Amt Medium (34-66%) -Granulation Quality [place] -Slough/Fibrin Yes -Necrosis Amt Small (1-33%) -Necrotic Tissue Type Adherent Slough -Structure Exposed N/A -Texture (Jessica-wound Skin Appearance) Assessed, Scarring -Moisture (Jessica-wound Skin Appearance Assessed ) -Color (Jessica-wound Skin Appearance) Assessed -Temperature (Jessica-wound Skin No Abnormality Appearance) (Pt Warm) -Tenderness on Palpation (Jessica-wound No Skin Appearance) -Ulcer Cleansing Wound Cleanser -Foul Odor after Cleansing No -Anesthetic Used 5% Lidocaine Gel #1 left abd fold cluster -Combined with other wound No -Current Size (cm) - Length 5.8 -Current Size (cm) - Width 8 -Current Size (cm) - Depth 0.1 -Total Square Cm 46.4 -Tunneling No -Undermining/Tunneling No -Circular Undermining No -Exudate Amt Small -Exudate Type Serosanguineous -Wound Margin Flat & Intact -Granulation Amt Medium (34-66%) -Granulation Quality Red -Slough/Fibrin Yes -Necrosis Amt Medium (34-66%) -Necrotic Tissue Type Adherent Slough -Structure Exposed N/A -Texture (Jessica-wound Skin Appearance) Assessed, Excoriation -Moisture (Jessica-wound Skin Appearance Assessed, ) Maceration -Color (Jessica-wound Skin Appearance) Assessed -Temperature (Jessica-wound Skin No Abnormality Appearance) (Pt Warm) -Tenderness on Palpation (Jessica-wound No Skin Appearance) -Ulcer Cleansing Wound Cleanser -Foul Odor after Cleansing No -Anesthetic Used 4% Lidocaine Solution WC - Nurse 2 - General Ulcer CM Notes Start: 05/22/20 11:32 Freq: Status: Active Protocol: Activity Type Activity Date Activity User E-Sign Co-Sign Detail Recorded Client Recorded Date Recorded By Document 06/12/20 11:41 MW [id number] 06/12/20 11:50 MW 06/12/20 11:41 Wound Center Nurse 2 [Procedure/Treatment] #3 Coccyx -Time 11:49 -Correct Patient Yes -Correct Side, Site, Position Yes -Correct Procedure Yes -Procedure Performed Yes -Type of Procedure Debridement -Clinical Debridement Subcutaneous -Post Debridement Size (cm) - Length 0.3 -Post Debridement Size (cm) - Width 0.5 -Post Debridement Size (cm) - Depth 0.1 -Total Square (cm) 0.15 -Wound/Ulcer Outcome Not Healed -Ulcer Cleansing Rinsed/ Irrigated with Saline -Foul Odor after Cleansing No -Bioengineered Tissue No -Bleeding Controlled with Pressure -Offloading No -Treatment Response Procedure Tolerated Well #1 left abd fold cluster -Time 11:49 -Correct Patient Yes -Correct Side, Site, Position Yes -Correct Procedure Yes -Procedure Performed No -Wound/Ulcer Outcome Not Healed -Foul Odor after Cleansing No -Bleeding Controlled with NA -Offloading No -Treatment Response Procedure Tolerated Well [See Physician Procedure note for Specifics] Pain Scale: 0-10 Numeric [Pain] -Is Patient Pain Free? Yes Psych/Mental Status: Normal Affect, Appropriate Debridement Note Post-Debridement Measurements/Treatment WC - Nurse 2 - General Ulcer CM Notes Start: 05/22/20 11:32 Freq: Status: Active Protocol: Activity Type Activity Date Activity User E-Sign Co-Sign Detail Recorded Client Recorded Date Recorded By Document 05/22/20 12:00 DV [id number] 05/22/20 12:09 DV Document 06/12/20 11:41 MW [id number] 06/12/20 11:50 MW 05/22/20 06/12/20 12:00 11:41 Wound Center Nurse 2 #3 Coccyx -Time 12:03 11:49 -Correct Patient Yes Yes -Correct Side, Site, Position Yes Yes -Correct Procedure Yes Yes -Procedure Performed Yes Yes -Type of Procedure Debridement Debridement -Clinical Debridement Subcutaneous Subcutaneous -Post Debridement Size (cm) - Length 0.5 0.3 -Post Debridement Size (cm) - Width 0.5 0.5 -Post Debridement Size (cm) - Depth 0.3 0.1 -Total Square (cm) 0.25 0.15 -Wound/Ulcer Outcome Not Healed Not Healed -Ulcer Cleansing Rinsed/ Rinsed/ Irrigated with Irrigated with Saline Saline -Foul Odor after Cleansing No No -Bioengineered Tissue No No -Bleeding Controlled with Pressure Pressure -Offloading No No -Treatment Response Procedure Procedure Tolerated Well Tolerated Well #1 left abd fold cluster -Time 12:01 11:49 -Correct Patient Yes Yes -Correct Side, Site, Position Yes Yes -Correct Procedure Yes Yes -Procedure Performed Yes No -Type of Procedure Debridement -Clinical Debridement Selective -Post Debridement Size (cm) - Length 6.0 -Post Debridement Size (cm) - Width 3.0 -Post Debridement Size (cm) - Depth 0.1 -Total Square (cm) 18.00 -Wound/Ulcer Outcome Not Healed Not Healed -Ulcer Cleansing Rinsed/ Irrigated with Saline -Foul Odor after Cleansing No No -Bioengineered Tissue No -Bleeding Controlled with Pressure NA -Offloading No No -Treatment Response Procedure Procedure Tolerated Well Tolerated Well Pain Scale: 0-10 Numeric Is Patient Pain Free? Yes Yes Wound debrided: left abdominal fold cluster Laterality: Left Type of Debridement: Selective debridement Anesthesia Used: 4% Lidocaine Solution Instrument Used: - - gauze Tissue Removed: Yellow slough, devitalized tissue Severity: Fat Layer Exposed Amount of bleeding with debridement: Mild Bleeding Controlled with: Compression and gauze Patient tolerated procedure well - Additional Wound Wound debrided: Coccyx Laterality: Not Applicable Wound Grade/Stage: Stage 3 Type of Debridement: Excisional debridement Anesthesia Used: 4% Lidocaine Solution Depth: Down to and including healthy tissue, in the subcutaneous layer Percentage of wound debrided: 100 Instrument Used: 3mm curette Tissue Removed: Yellow slough, devitalized tissue Severity: Fat Layer Exposed Amount of bleeding with debridement: Mild Bleeding Controlled with: Compression and gauze Patient tolerated procedure: Patient tolerated procedure well Assessment/Plan Active Problems (Last Updated 11/04/19 @ 10:19 by Nia Beyer) Ulcer of left groin with fat layer exposed (Chronic) Pressure ulcer of coccygeal region, stage 3 (Chronic) Morbid obesity (Chronic) Debility (Chronic) Candidal intertrigo (Chronic) Assessment: ulcers of left groin. morbid obesity. Candidal intertrigo. Stage 3 pressure ulcer of coccyx Plan: Samra's ulcers were evaluated today. Her left groin cluster is worse. Will have her continue to use Fibracol to the ulcers of her left lower abdomen and coccyx and interdry sache to her abdominal fold area to absorb moisture and prevent ulcers from developing due to the heavy drainage. She should change ABDs to left groin area 2-3 times/day as needed for soiling through of heavy drainage. Diflucan will be continued once weekly to treat candidal intertrigo. Will have her take this weekly to every other week due to sweating and heat and her body habitus and chronic yeast which are causing her to develop ulcers. Encouraged her to increase protein intake and offload the areas of her ulcers. Advised to call with any fever, chills, increased. drainage. Due to the chronic stage 3 pressure ulcer of her coccyx she would benefit from offloading mattress such as alternating pressure mattress. 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 F/u in 2 weeks.
== END 2020-06-12 23:59 ==
LOC: WC 11:00
PROVIDERS: Family Provider Family Medicine; PCP Family Medicine; Referring Provider Family Medicine; Visit Provider Family Medicine
DX: L89.153 Pressure ulcer of sacral region, stage 3 (principal); E66.01 Morbid (severe) obesity due to excess calories; B37.2 Candidiasis of skin and nail; L98.492 Non-pressure chronic ulcer of skin of other sites with fat layer exposed; Z68.43 Body mass index [BMI] 50.0-59.9, adult; Z99.3 Dependence on wheelchair
CPT/HCPCS: 11042

== ENCOUNTER 2020-07-10 10:00 | Outpatient (RCR) | payer MEDICARE, OTHER, SELFPAY ==
[2020-06-13 00:22] VITALS: BP 118/70; PULSE 69; RESP 18; TEMP 36.2
[2020-06-26 11:20] VITALS: BP 112/59; PULSE 84; RESP 16; TEMP 35.9; BMI 50.1
--- NOTE | 2020-06-27 14:10 | PCM.WC.PN ---
(1) Wheelchair dependence Status: Chronic Current Visit: Yes Code(s): Z99.3 - Dependence on wheelchair (2) Ulcer of left groin with fat layer exposed Status: Chronic Current Visit: Yes Code(s): L98.492 - Non-pressure chronic ulcer of skin of other sites with fat layer exposed (3) Pressure ulcer of coccygeal region, stage 3 Status: Chronic Current Visit: Yes Code(s): L89.153 - Pressure ulcer of sacral region, stage 3 (4) Morbid obesity Status: Chronic Current Visit: Yes Code(s): E66.01 - Morbid (severe) obesity due to excess calories (5) Candidal intertrigo Status: Chronic Current Visit: Yes Code(s): B37.2 - Candidiasis of skin and nail Type of Wound Date of Service: 06/26/20 Chief Complaint: ulcers of left groin and abdomen, pressure ulcer of coccyx History of Wound: Samra is a 74 yo woman who presented to the wound center for ulcers of left groin and abdomen referred by wound nurse at [facility]. She was hospitalized at [facility] for urosepsis multiple times. She was on IV antibiotics of Meropenem and Vancomycin. She is morbidly obese and has problems with candidal intertrigo and has ulcers that open frequently for several years. She was using towels to keep moisture from accumulating under her skin folds but this has been ineffective. She started using InstaDry sheets since discharge from the hospital which has improved the moisture in her folds. She has been using nystatin powder as well. She had been using bacitracin to the ulcer of her abdomen. She has an indwelling suprapubic catheter that is changed monthly. She has heavy drainage from her ulcers. She is wheelchair bound and has an aid that helps her daily for a few hours per day. She denies fever or chills. In May 2019, she reports that she has a chronic ulcer of her coccyx area that was previously surgically debrided that comes and goes and has gotten worse since she was in the snf in early 2018. Progress of Wound: Samra is here for follow up of ulcers of her left groin and coccyx. She is tolerating Fibracol dressings to left groin and continues to use Intradry strips and ABD pads to her groin area to wick away moisture for her very heavy drainage. She has had improvement in erythema but increased size due to increased perspiration. She has had increase in pain to coccyx ulcer but this has decreased in size. She has very heavy drainage from the ulcers of her left groin. She is tolerating fibracol to her coccyx ulcer and has moderate to heavy drainage from this ulcer. Her mid-abdomen ulcer remains healed. She denies fever or chills or erythema. 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 - Physical Exam Vital Signs Temp Pulse Resp BP 96.7 F L 84 16 112/59 L 06/26/20 11:20 06/26/20 11:20 06/26/20 11:20 06/26/20 11:20 General: Alert, Oriented x3, Cooperative, No apparent distress HEENT: Atraumatic, Normocephalic Oral: Moist Mucosa Abdomen: Obese Skin: Ulcer/ Wound Wound Measurements and Assessment WC - Nurse 1 - General Ulcer Measurement Start: 06/26/20 11:16 Freq: Status: Active Protocol: Activity Type Activity Date Activity User E-Sign Co-Sign Detail Recorded Client Recorded Date Recorded By Document 06/26/20 11:20 [facility] [id number] 06/26/20 11:31 [facility] 06/26/20 11:20 Wound Center Nurse 1 [Ulcer Assessment] #3 Coccyx -Combined with other wound No -Current Size (cm) - Length 2 -Current Size (cm) - Width 2.5 -Current Size (cm) - Depth 0.2 -Total Square Cm 5.0 -Photo Taken No -Epithelialization None Present -Tunneling No -Undermining/Tunneling No -Circular Undermining No -Exudate Amt Small -Exudate Type Serosanguineous -Wound Margin Thickened -Granulation Amt Small (1-33%) -Granulation Quality [place] -Slough/Fibrin Yes -Necrosis Amt Large (67-100%) -Necrotic Tissue Type Adherent Slough -Texture (Jessica-wound Skin Appearance) Assessed, Scarring -Moisture (Jessica-wound Skin Appearance Assessed, ) Maceration -Color (Jessica-wound Skin Appearance) Assessed,Palor -Temperature (Jessica-wound Skin No Abnormality Appearance) (Pt Warm) -Tenderness on Palpation (Jessica-wound No Skin Appearance) -Ulcer Cleansing Rinsed/ Irrigated with Saline -Foul Odor after Cleansing No -Anesthetic Used 5% Lidocaine Gel #1 left abd fold cluster -Combined with other wound No -Current Size (cm) - Length 7 -Current Size (cm) - Width 4.2 -Current Size (cm) - Depth 0.1 -Total Square Cm 29.4 -Photo Taken No -Epithelialization None Present -Tunneling No -Undermining/Tunneling No -Circular Undermining No -Exudate Amt Medium -Exudate Type Serosanguineous -Wound Margin Distinct, Outline Attached -Granulation Amt Large (67-100%) -Granulation Quality Red -Slough/Fibrin Yes -Necrosis Amt Small (1-33%) -Necrotic Tissue Type Adherent Slough -Texture (Jessica-wound Skin Appearance) Assessed, Excoriation -Moisture (Jessica-wound Skin Appearance Assessed ) -Color (Jessica-wound Skin Appearance) Assessed, Erythema -Temperature (Jessica-wound Skin No Abnormality Appearance) (Pt Warm) -Tenderness on Palpation (Jessica-wound No Skin Appearance) -Ulcer Cleansing soapy water -Foul Odor after Cleansing No -Anesthetic Used 4% Lidocaine Solution WC - Nurse 2 - General Ulcer CM Notes Start: 06/26/20 11:16 Freq: Status: Active Protocol: Activity Type Activity Date Activity User E-Sign Co-Sign Detail Recorded Client Recorded Date Recorded By Document 06/26/20 11:51 MW [id number] 06/26/20 12:01 MW 06/26/20 11:51 Wound Center Nurse 2 [Procedure/Treatment] #3 Coccyx -Time 12:00 -Correct Patient Yes -Correct Side, Site, Position Yes -Correct Procedure Yes -Procedure Performed Yes -Type of Procedure Debridement -Clinical Debridement Subcutaneous -Post Debridement Size (cm) - Length 0.5 -Post Debridement Size (cm) - Width 0.4 -Post Debridement Size (cm) - Depth 0.3 -Total Square (cm) 0.20 -Wound/Ulcer Outcome Not Healed -Ulcer Cleansing Rinsed/ Irrigated with Saline -Foul Odor after Cleansing No -Bioengineered Tissue No -Bleeding Controlled with Pressure -Offloading No -Treatment Response Procedure Tolerated Well #1 left abd fold cluster -Time 12:01 -Correct Patient Yes -Correct Side, Site, Position Yes -Correct Procedure Yes -Procedure Performed No -Wound/Ulcer Outcome Not Healed -Foul Odor after Cleansing No -Bioengineered Tissue No -Bleeding Controlled with NA -Offloading No -Treatment Response Procedure Tolerated Well [See Physician Procedure note for Specifics] Pain Scale: 0-10 Numeric [Pain] -Is Patient Pain Free? Yes Psych/Mental Status: Normal Affect, Appropriate Debridement Note Post-Debridement Measurements/Treatment WC - Nurse 2 - General Ulcer CM Notes Start: 06/26/20 11:16 Freq: Status: Active Protocol: Activity Type Activity Date Activity User E-Sign Co-Sign Detail Recorded Client Recorded Date Recorded By Document 06/26/20 11:51 MW [id number] 06/26/20 12:01 MW 06/26/20 11:51 Wound Center Nurse 2 #3 Coccyx -Time 12:00 -Correct Patient Yes -Correct Side, Site, Position Yes -Correct Procedure Yes -Procedure Performed Yes -Type of Procedure Debridement -Clinical Debridement Subcutaneous -Post Debridement Size (cm) - Length 0.5 -Post Debridement Size (cm) - Width 0.4 -Post Debridement Size (cm) - Depth 0.3 -Total Square (cm) 0.20 -Wound/Ulcer Outcome Not Healed -Ulcer Cleansing Rinsed/ Irrigated with Saline -Foul Odor after Cleansing No -Bioengineered Tissue No -Bleeding Controlled with Pressure -Offloading No -Treatment Response Procedure Tolerated Well #1 left abd fold cluster -Time 12:01 -Correct Patient Yes -Correct Side, Site, Position Yes -Correct Procedure Yes -Procedure Performed No -Wound/Ulcer Outcome Not Healed -Foul Odor after Cleansing No -Bioengineered Tissue No -Bleeding Controlled with NA -Offloading No -Treatment Response Procedure Tolerated Well Pain Scale: 0-10 Numeric Is Patient Pain Free? Yes Wound debrided: coccyx Laterality: Not Applicable Wound Grade/Stage: Stage 3 Type of Debridement: Excisional debridement Anesthesia Used: 4% Lidocaine Solution Depth: Down to and including healthy tissue, in the subcutaneous layer Percentage of wound debrided: 100 Instrument Used: 3mm curette Tissue Removed: yellow slough, devitalized tissue Severity: Fat Layer Exposed Amount of bleeding with debridement: Mild Bleeding Controlled with: Compression and gauze Patient tolerated procedure well - Additional Wound Wound debrided: left groin cluster Laterality: Left Type of Debridement: Selective debridement Anesthesia Used: 4% Lidocaine Solution Depth: Down to and including healthy tissue Percentage of wound debrided: 50 Instrument Used: - - gauze Tissue Removed: yellow slough, devitalized tissue Severity: Fat Layer Exposed Amount of bleeding with debridement: Mild Bleeding Controlled with: Compression and gauze Patient tolerated procedure: Patient tolerated procedure well Assessment/Plan Active Problems (Last Updated 11/04/19 @ 10:19 by Nia Beyer) Wheelchair dependence (Chronic) Ulcer of left groin with fat layer exposed (Chronic) Pressure ulcer of coccygeal region, stage 3 (Chronic) Morbid obesity (Chronic) Candidal intertrigo (Chronic) Assessment: ulcers of left groin. morbid obesity. Candidal intertrigo. Stage 3 pressure ulcer of coccyx Plan: Samra's ulcers were evaluated today. Her left groin cluster is improved. Will have her continue to use Fibracol to the ulcers of her left lower abdomen and coccyx and interdry sache to her abdominal fold area to absorb moisture and prevent ulcers from developing due to the heavy drainage. She should change ABDs to left groin area 2-3 times/day as needed for soiling through of heavy drainage. Diflucan will be continued once weekly to treat candidal intertrigo. Will have her take this weekly to every other week due to sweating and heat and her body habitus and chronic yeast which are causing her to develop ulcers. Encouraged her to increase protein intake and offload the areas of her ulcers. Advised to call with any fever, chills, increased. drainage. Due to the chronic stage 3 pressure ulcer of her coccyx she would benefit from offloading mattress such as alternating pressure mattress. 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 F/u in 2 weeks.
[2020-07-10 10:03] VITALS: BP 117/52; PULSE 69; RESP 16; TEMP 35.9; BMI 50.1
--- NOTE | 2020-07-10 17:01 | PCM.WC.PN ---
(1) Wheelchair dependence Status: Chronic Current Visit: Yes Code(s): Z99.3 - Dependence on wheelchair (2) Ulcer of left groin with fat layer exposed Status: Chronic Current Visit: Yes Code(s): L98.492 - Non-pressure chronic ulcer of skin of other sites with fat layer exposed (3) Pressure ulcer of coccygeal region, stage 3 Status: Chronic Current Visit: Yes Code(s): L89.153 - Pressure ulcer of sacral region, stage 3 (4) Morbid obesity Status: Chronic Current Visit: Yes Code(s): E66.01 - Morbid (severe) obesity due to excess calories (5) Candidal intertrigo Status: Chronic Current Visit: Yes Code(s): B37.2 - Candidiasis of skin and nail Type of Wound Date of Service: 07/10/20 Chief Complaint: ulcers of left groin and abdomen, pressure ulcer of coccyx History of Wound: Samra is a 74 yo woman who presented to the wound center for ulcers of left groin and abdomen referred by wound nurse at [facility]. She was hospitalized at [facility] for urosepsis multiple times. She was on IV antibiotics of Meropenem and Vancomycin. She is morbidly obese and has problems with candidal intertrigo and has ulcers that open frequently for several years. She was using towels to keep moisture from accumulating under her skin folds but this has been ineffective. She started using InstaDry sheets since discharge from the hospital which has improved the moisture in her folds. She has been using nystatin powder as well. She had been using bacitracin to the ulcer of her abdomen. She has an indwelling suprapubic catheter that is changed monthly. She has heavy drainage from her ulcers. She is wheelchair bound and has an aid that helps her daily for a few hours per day. She denies fever or chills. In May 2019, she reports that she has a chronic ulcer of her coccyx area that was previously surgically debrided that comes and goes and has gotten worse since she was in the [facility] in early 2018. Progress of Wound: Samra is here for follow up of ulcers of her left groin and coccyx. She is tolerating Fibracol dressings to left groin and continues to use Intradry strips and ABD pads to her groin area to wick away moisture for her very heavy drainage. She has had improvement in erythema but increased size due to increased perspiration. She has had increase in pain to coccyx ulcer but this has decreased in size. She has very heavy drainage from the ulcers of her left groin. She is tolerating fibracol to her coccyx ulcer and has moderate to heavy drainage from this ulcer. Her mid-abdomen ulcer remains healed. She denies fever or chills or erythema. 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 - Physical Exam Vital Signs Temp Pulse Resp BP 96.7 F L 69 16 117/52 L 07/10/20 10:03 07/10/20 10:03 07/10/20 10:03 07/10/20 10:03 General: Alert, Oriented x3, Cooperative, No apparent distress HEENT: Atraumatic, Normocephalic Oral: Moist Mucosa Abdomen: Obese Extremities: Edema Skin: Ulcer/ Wound Wound Measurements and Assessment WC - Nurse 1 - General Ulcer Measurement Start: 06/26/20 11:16 Freq: Status: Active Protocol: Activity Type Activity Date Activity User E-Sign Co-Sign Detail Recorded Client Recorded Date Recorded By Document 07/10/20 10:03 [facility] [id number] 07/10/20 10:14 [facility] 07/10/20 10:03 Wound Center Nurse 1 [Ulcer Assessment] #3 Coccyx -Combined with other wound No -Current Size (cm) - Length 0.5 -Current Size (cm) - Width 0.4 -Current Size (cm) - Depth 0.8 -Total Square Cm 0.20 -Photo Taken No -Epithelialization None Present -Tunneling No -Undermining/Tunneling No -Circular Undermining No -Exudate Amt Medium -Exudate Type Serosanguineous -Wound Margin Thickened -Granulation Amt Medium (34-66%) -Granulation Quality [place] -Slough/Fibrin Yes -Necrosis Amt Small (1-33%) -Necrotic Tissue Type Adherent Slough -Texture (Jessica-wound Skin Appearance) Assessed,Callus ,Scarring -Moisture (Jessica-wound Skin Appearance Assessed, ) Maceration,Dry/ Scaly -Color (Jessica-wound Skin Appearance) Assessed,Palor -Temperature (Jesisca-wound Skin No Abnormality Appearance) (Pt Warm) -Tenderness on Palpation (Jessica-wound No Skin Appearance) -Ulcer Cleansing Rinsed/ Irrigated with Saline -Foul Odor after Cleansing No -Anesthetic Used 5% Lidocaine Gel #1 left abd fold cluster -Combined with other wound No -Current Size (cm) - Length 3 -Current Size (cm) - Width 4.5 -Current Size (cm) - Depth 0.1 -Total Square Cm 13.5 -Photo Taken No -Epithelialization Small 1-33% -Tunneling No -Undermining/Tunneling No -Circular Undermining No -Exudate Amt Medium -Exudate Type Serosanguineous -Wound Margin Flat & Intact -Granulation Amt Large (67-100%) -Granulation Quality Red -Slough/Fibrin No -Necrosis Amt None Present (0 %) -Texture (Jessica-wound Skin Appearance) Assessed, Excoriation, Scarring -Moisture (Jessica-wound Skin Appearance Assessed ) -Color (Jessica-wound Skin Appearance) Assessed, Erythema -Temperature (Jessica-wound Skin No Abnormality Appearance) (Pt Warm) -Tenderness on Palpation (Jessica-wound No Skin Appearance) -Ulcer Cleansing soapy water -Foul Odor after Cleansing No -Anesthetic Used 4% Lidocaine Solution WC - Nurse 2 - General Ulcer CM Notes Start: 07/10/20 10:52 Freq: Status: Active Protocol: Activity Type Activity Date Activity User E-Sign Co-Sign Detail Recorded Client Recorded Date Recorded By Document 07/10/20 10:53 MW [id number] 07/10/20 10:55 MW 07/10/20 10:53 Wound Center Nurse 2 [Procedure/Treatment] #3 Coccyx -Time 10:53 -Correct Patient Yes -Correct Side, Site, Position Yes -Correct Procedure Yes -Procedure Performed Yes -Type of Procedure Debridement -Clinical Debridement Subcutaneous -Tissue Removed Subcutaneous -Post Debridement (cm) - Length 0.5 -Post Debridement (cm) - Width 0.8 -Post Debridement (cm) - Depth 0.4 -Total Square (Post) (cm) 0.40 -Area of Debridement (cm) - Length 0.5 -Area of Debridement (cm) - Width 0.8 -Total Square (Area) (cm) 0.40 -Tunneling No -Undermining/Tunneling No -Circular Undermining No -Wound/Ulcer Outcome Not Healed -Ulcer Cleansing Rinsed/ Irrigated with Saline -Foul Odor after Cleansing No -Bioengineered Tissue No -Bleeding Controlled with Pressure -Offloading No -Treatment Response Procedure Tolerated Well -Debridement - Subq, 1st 20sq cm Yes #1 left abd fold cluster -Time 10:53 -Correct Patient Yes -Correct Side, Site, Position Yes -Correct Procedure Yes -Procedure Performed No -Tunneling No -Undermining/Tunneling No -Circular Undermining No -Wound/Ulcer Outcome Not Healed -Ulcer Cleansing Not Cleansed -Foul Odor after Cleansing No -Bioengineered Tissue No -Bleeding Controlled with NA [See Physician Procedure note for Specifics] Pain Scale: 0-10 Numeric [Pain] -Is Patient Pain Free? Yes Psych/Mental Status: Normal Affect, Appropriate Debridement Note Post-Debridement Measurements/Treatment WC - Nurse 2 - General Ulcer CM Notes Start: 07/10/20 10:52 Freq: Status: Active Protocol: Activity Type Activity Date Activity User E-Sign Co-Sign Detail Recorded Client Recorded Date Recorded By Document 07/10/20 10:53 MW [id number] 07/10/20 10:55 MW 07/10/20 10:53 Wound Center Nurse 2 #3 Coccyx -Time 10:53 -Correct Patient Yes -Correct Side, Site, Position Yes -Correct Procedure Yes -Procedure Performed Yes -Type of Procedure Debridement -Clinical Debridement Subcutaneous -Tissue Removed Subcutaneous -Post Debridement (cm) - Length 0.5 -Post Debridement (cm) - Width 0.8 -Post Debridement (cm) - Depth 0.4 -Total Square (Post) (cm) 0.40 -Area of Debridement (cm) - Length 0.5 -Area of Debridement (cm) - Width 0.8 -Total Square (Area) (cm) 0.40 -Tunneling No -Undermining/Tunneling No -Circular Undermining No -Wound/Ulcer Outcome Not Healed -Ulcer Cleansing Rinsed/ Irrigated with Saline -Foul Odor after Cleansing No -Bioengineered Tissue No -Bleeding Controlled with Pressure -Offloading No -Treatment Response Procedure Tolerated Well -Debridement - Subq, 1st 20sq cm Yes #1 left abd fold cluster -Time 10:53 -Correct Patient Yes -Correct Side, Site, Position Yes -Correct Procedure Yes -Procedure Performed No -Tunneling No -Undermining/Tunneling No -Circular Undermining No -Wound/Ulcer Outcome Not Healed -Ulcer Cleansing Not Cleansed -Foul Odor after Cleansing No -Bioengineered Tissue No -Bleeding Controlled with NA Pain Scale: 0-10 Numeric Is Patient Pain Free? Yes Wound debrided: coccyx Laterality: Not Applicable Wound Grade/Stage: Stage 3 Type of Debridement: Excisional debridement Anesthesia Used: 4% Lidocaine Solution Depth: Down to and including healthy tissue, in the subcutaneous layer Percentage of wound debrided: 100 Instrument Used: 3mm curette Tissue Removed: Yellow slough, devitalized tissue Severity: Fat Layer Exposed Amount of bleeding with debridement: Mild Bleeding Controlled with: Compression and gauze Patient tolerated procedure well - Additional Wound Wound debrided: left lateral groin cluster Laterality: Left Patient tolerated procedure: Patient tolerated procedure well - no debridement completed - minimal slough present Assessment/Plan Active Problems (Last Updated 11/04/19 @ 10:19 by Nia Beyer) Wheelchair dependence (Chronic) Ulcer of left groin with fat layer exposed (Chronic) Pressure ulcer of coccygeal region, stage 3 (Chronic) Morbid obesity (Chronic) Candidal intertrigo (Chronic) Assessment: ulcers of left groin. morbid obesity. Candidal intertrigo. Stage 3 pressure ulcer of coccyx Plan: Samra's ulcers were evaluated today. Her left groin cluster is improving. Will have her continue to use Fibracol to the ulcers of her left lower abdomen and coccyx and interdry sache to her abdominal fold area to absorb moisture and prevent ulcers from developing due to the heavy drainage. She should change ABDs to left groin area 2-3 times/day as needed for soiling through of heavy drainage. Diflucan will be continued once weekly to treat candidal intertrigo. Will have her take this weekly to every other week due to sweating and heat and her body habitus and chronic yeast which are causing her to develop ulcers. Encouraged her to increase protein intake and offload the areas of her ulcers. Advised to call with any fever, chills, increased. drainage. Due to the chronic stage 3 pressure ulcer of her coccyx she would benefit from offloading mattress such as alternating pressure mattress. 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 F/u in 2 weeks.
== END 2020-07-13 23:59 ==
LOC: WC 10:00
PROVIDERS: Family Provider Family Medicine; PCP Family Medicine; Referring Provider Family Medicine; Visit Provider Family Medicine
DX: L89.153 Pressure ulcer of sacral region, stage 3 (principal); Z99.3 Dependence on wheelchair; E66.01 Morbid (severe) obesity due to excess calories; B37.2 Candidiasis of skin and nail; L98.492 Non-pressure chronic ulcer of skin of other sites with fat layer exposed; Z68.43 Body mass index [BMI] 50.0-59.9, adult
CPT/HCPCS: 11042

== ENCOUNTER 2020-07-31 10:01 | Outpatient (RCR) | payer MEDICARE, OTHER, SELFPAY ==
[2020-07-14 00:27] VITALS: BP 117/52; PULSE 69; RESP 16; TEMP 35.9
[2020-07-31 10:24] VITALS: BP 113/43; PULSE 83; RESP 18; TEMP 36.2; BMI 50.1
--- NOTE | 2020-07-31 15:56 | PN.PCM_ITS ---
(1) Ulcer of left groin with fat layer exposed Status: Chronic Current Visit: Yes Code(s): L98.492 - Non-pressure chronic ulcer of skin of other sites with fat layer exposed (2) Pressure ulcer of coccygeal region, stage 3 Status: Chronic Current Visit: Yes Code(s): L89.153 - Pressure ulcer of sacral region, stage 3 (3) Morbid obesity Status: Chronic Current Visit: Yes Code(s): E66.01 - Morbid (severe) obesity due to excess calories (4) Candidal intertrigo Status: Chronic Current Visit: Yes Code(s): B37.2 - Candidiasis of skin and nail Type of Wound Date of Service: 07/31/20 Chief Complaint: ulcers of left groin and abdomen, pressure ulcer of coccyx History of Wound: Samra is a 74 yo woman who presented to the wound center for ulcers of left groin and abdomen referred by wound nurse at [facility]. She was hospitalized at [facility] for urosepsis multiple times. She was on IV antibiotics of Meropenem and Vancomycin. She is morbidly obese and has problems with candidal intertrigo and has ulcers that open frequently for several years. She was using towels to keep moisture from accumulating under her skin folds but this has been ineffective. She started using InstaDry sheets since discharge from the hospital which has improved the moisture in her folds. She has been using nystatin powder as well. She had been using bacitracin to the ulcer of her abdomen. She has an indwelling suprapubic catheter that is changed monthly. She has heavy drainage from her ulcers. She is wheelchair bound and has an aid that helps her daily for a few hours per day. She denies fever or chills. In May 2019, she reports that she has a chronic ulcer of her coccyx area that was previously surgically debrided that comes and goes and has gotten worse since she was in the correction in early 2018. Progress of Wound: Samra is here for follow up of ulcers of her left groin and coccyx. She is tolerating Fibracol dressings to left groin and continues to use Intradry strips and ABD pads to her groin area to wick away moisture for her very heavy drainage. She has had improvement in erythema but increased size due to increased perspiration. She has had increase in pain to coccyx ulcer but this has decreased in size. She has very heavy drainage from the ulcers of her left groin. She is tolerating fibracol to her coccyx ulcer and has moderate to heavy drainage from this ulcer. Her mid-abdomen ulcer remains healed. She denies fever or chills or erythema. 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 - Physical Exam Vital Signs Temp Pulse Resp BP 97.1 F L 83 18 113/43 L 07/31/20 10:24 07/31/20 10:24 07/31/20 10:24 07/31/20 10:24 General: Alert, Oriented x3, Cooperative, No apparent distress HEENT: Atraumatic, Normocephalic Oral: Moist Mucosa Abdomen: Soft, Non Tender, Obese Extremities: Edema Skin: Ulcer/ Wound Wound Measurements and Assessment WC - Nurse 1 - General Ulcer Measurement Start: 07/31/20 10:21 Freq: Status: Active Protocol: Activity Type Activity Date Activity User E-Sign Co-Sign Detail Recorded Client Recorded Date Recorded By Document 07/31/20 10:24 [id number] 07/31/20 10:26 RB 07/31/20 10:24 Wound Center Nurse 1 [Ulcer Assessment] #3 Coccyx -Combined with other wound No -Current Size (cm) - Length 0.5 -Current Size (cm) - Width 0.5 -Current Size (cm) - Depth 0.3 -Total Square Cm 0.25 -Tunneling No -Undermining/Tunneling No -Circular Undermining No -Exudate Amt Small -Exudate Type Serosanguineous -Wound Margin Thickened -Granulation Amt Medium (34-66%) -Granulation Quality [place] -Slough/Fibrin Yes -Necrosis Amt Medium (34-66%) -Necrotic Tissue Type Adherent Slough -Structure Exposed N/A -Texture (Jessica-wound Skin Appearance) Assessed -Moisture (Jessica-wound Skin Appearance Assessed ) -Color (Jessica-wound Skin Appearance) Assessed -Temperature (Jessica-wound Skin No Abnormality Appearance) (Pt Warm) -Tenderness on Palpation (Jessica-wound No Skin Appearance) -Ulcer Cleansing Wound Cleanser -Foul Odor after Cleansing No -Anesthetic Used 4% Lidocaine Solution,5% Lidocaine Gel #1 left abd fold cluster -Current Size (cm) - Length 4 -Current Size (cm) - Width 15 -Current Size (cm) - Depth 0.1 -Total Square Cm 60 -Tunneling No -Undermining/Tunneling No -Circular Undermining No -Exudate Amt Medium -Exudate Type Serosanguineous -Wound Margin Flat & Intact -Granulation Amt Medium (34-66%) -Granulation Quality Red -Slough/Fibrin Yes -Necrosis Amt Medium (34-66%) -Necrotic Tissue Type Adherent Slough -Structure Exposed N/A -Texture (Jessica-wound Skin Appearance) Excoriation -Moisture (Jessica-wound Skin Appearance Weeping ) -Color (Jessica-wound Skin Appearance) Erythema -Temperature (Jessica-wound Skin No Abnormality Appearance) (Pt Warm) -Tenderness on Palpation (Jessica-wound No Skin Appearance) -Ulcer Cleansing Wound Cleanser -Foul Odor after Cleansing No -Anesthetic Used 4% Lidocaine Solution WC - Nurse 2 - General Ulcer CM Notes Start: 07/31/20 10:21 Freq: Status: Active Protocol: Activity Type Activity Date Activity User E-Sign Co-Sign Detail Recorded Client Recorded Date Recorded By Document 07/31/20 10:48 MW [id number] 07/31/20 10:59 MW 07/31/20 10:48 Wound Center Nurse 2 [Procedure/Treatment] #3 Coccyx -Time 10:49 -Correct Patient Yes -Correct Side, Site, Position Yes -Correct Procedure Yes -Procedure Performed Yes -Type of Procedure Debridement -Clinical Debridement Subcutaneous -Tissue Removed Subcutaneous -Post Debridement (cm) - Length 0.7 -Post Debridement (cm) - Width 0.3 -Post Debridement (cm) - Depth 0.3 -Total Square (Post) (cm) 0.21 -Area of Debridement (cm) - Length 0.7 -Area of Debridement (cm) - Width 0.3 -Total Square (Area) (cm) 0.21 -Tunneling No -Undermining/Tunneling No -Circular Undermining No -Wound/Ulcer Outcome Not Healed -Ulcer Cleansing Rinsed/ Irrigated with Saline -Foul Odor after Cleansing No -Bioengineered Tissue No -Bleeding Controlled with Pressure -Offloading No -Treatment Response Procedure Tolerated Well -Debridement - Subq, 1st 20sq cm Yes #1 left abd fold cluster -Time 10:49 -Correct Patient Yes -Correct Side, Site, Position Yes -Correct Procedure Yes -Procedure Performed No -Tunneling No -Undermining/Tunneling No -Circular Undermining No -Wound/Ulcer Outcome Not Healed -Ulcer Cleansing Rinsed/ Irrigated with Saline -Foul Odor after Cleansing No -Bioengineered Tissue No -Bleeding Controlled with NA -Offloading No [See Physician Procedure note for Specifics] Pain Scale: 0-10 Numeric [Pain] -Is Patient Pain Free? Yes - Nurse 3 - General Ulcer D/C NN Start: 07/31/20 10:21 Freq: Status: Active Protocol: Activity Type Activity Date Activity User E-Sign Co-Sign Detail Recorded Client Recorded Date Recorded By Document 07/31/20 10:59 MW [id number] 07/31/20 11:00 MW 07/31/20 10:59 Wound Care Nurse 3 [Wound Dressing] #3 Coccyx -Ulcer Cleansing Rinsed/ Irrigated with Saline -Foul Odor after Cleansing No -Negative Pressure Wound Therapy N/A -Other Dressing fibracol plus -Primary Dressing Covered/Secured Dry Gauze, with Secured with Tape #1 left abd fold cluster -Ulcer Cleansing Rinsed/ Irrigated with Saline -Foul Odor after Cleansing No -Negative Pressure Wound Therapy N/A -Other Dressing fibracol plus -Other Covering abd pad [Post Procedure Tolerated] -Treatment Response Procedure Tolerated Well Pain Scale: 0-10 Numeric [Pain] -Is Patient Pain Free? Yes Teaching: Wound Center [Wound Center Education] (Items with an * have Printed Materials Available- Please identify what is given to patient under the Teaching materials given to patient and caregiver Section. Dressing Your Wound -Person Taught Patient -Teaching Method Discussion -Response to teaching Verbalize understanding - Visit Discharge [Visit Discharge Information] -Discharge Condition Stable -Ambulatory Status Wheelchair -Transportation Private Auto -Accompanied by family -Medication Reconcilliation completed No & provided to patient/care provider -Clinical Summary of Care Provided Yes Psych/Mental Status: Normal Affect, Appropriate Debridement Note Post-Debridement Measurements/Treatment - Nurse 2 - General Ulcer CM Notes Start: 07/31/20 10:21 Freq: Status: Active Protocol: Activity Type Activity Date Activity User E-Sign Co-Sign Detail Recorded Client Recorded Date Recorded By Document 07/31/20 10:48 MW [id number] 07/31/20 10:59 MW 07/31/20 10:48 Wound Center Nurse 2 #3 Coccyx -Time 10:49 -Correct Patient Yes -Correct Side, Site, Position Yes -Correct Procedure Yes -Procedure Performed Yes -Type of Procedure Debridement -Clinical Debridement Subcutaneous -Tissue Removed Subcutaneous -Post Debridement (cm) - Length 0.7 -Post Debridement (cm) - Width 0.3 -Post Debridement (cm) - Depth 0.3 -Total Square (Post) (cm) 0.21 -Area of Debridement (cm) - Length 0.7 -Area of Debridement (cm) - Width 0.3 -Total Square (Area) (cm) 0.21 -Tunneling No -Undermining/Tunneling No -Circular Undermining No -Wound/Ulcer Outcome Not Healed -Ulcer Cleansing Rinsed/ Irrigated with Saline -Foul Odor after Cleansing No -Bioengineered Tissue No -Bleeding Controlled with Pressure -Offloading No -Treatment Response Procedure Tolerated Well -Debridement - Subq, 1st 20sq cm Yes #1 left abd fold cluster -Time 10:49 -Correct Patient Yes -Correct Side, Site, Position Yes -Correct Procedure Yes -Procedure Performed No -Tunneling No -Undermining/Tunneling No -Circular Undermining No -Wound/Ulcer Outcome Not Healed -Ulcer Cleansing Rinsed/ Irrigated with Saline -Foul Odor after Cleansing No -Bioengineered Tissue No -Bleeding Controlled with NA -Offloading No Pain Scale: 0-10 Numeric Is Patient Pain Free? Yes WC - Nurse 3 - General Ulcer D/C NN Start: 07/31/20 10:21 Freq: Status: Active Protocol: Activity Type Activity Date Activity User E-Sign Co-Sign Detail Recorded Client Recorded Date Recorded By Document 07/31/20 10:59 MW [id number] 07/31/20 11:00 MW 07/31/20 10:59 Wound Care Nurse 3 #3 Coccyx -Ulcer Cleansing Rinsed/ Irrigated with Saline -Foul Odor after Cleansing No -Negative Pressure Wound Therapy N/A -Other Dressing fibracol plus -Primary Dressing Covered/Secured with Dry Gauze, Secured with Tape #1 left abd fold cluster -Ulcer Cleansing Rinsed/ Irrigated with Saline -Foul Odor after Cleansing No -Negative Pressure Wound Therapy N/A -Other Dressing fibracol plus -Other Covering abd pad Treatment Response Procedure Tolerated Well Pain Scale: 0-10 Numeric Is Patient Pain Free? Yes Teaching: Wound Center Dressing Your Wound -Person Taught Patient -Teaching Method Discussion -Response to teaching Verbalize understanding WC - Visit Discharge Discharge Condition Stable Ambulatory Status Wheelchair Transportation Private Auto Accompanied by family Medication Reconcilliation completed & No provided to patient/care provider Clinical Summary of Care Provided Yes Wound debrided: Coccyx Laterality: Not Applicable Wound Grade/Stage: Stage 3 Type of Debridement: Excisional debridement Anesthesia Used: 4% Lidocaine Solution, 5% Lidocaine Gel Depth: Down to and including healthy tissue, in the subcutaneous layer Percentage of wound debrided: 100 Instrument Used: 3mm curette Tissue Removed: Yellow slough, devitalized tissue Severity: Fat Layer Exposed Amount of bleeding with debridement: Mild Bleeding Controlled with: Compression and gauze Patient tolerated procedure well - Additional Wound Wound debrided: left groin cluster Laterality: Left Type of Debridement: Selective debridement Anesthesia Used: 4% Lidocaine Solution Depth: Down to and including healthy tissue, in the subcutaneous layer Percentage of wound debrided: 100 Instrument Used: - - gauze Tissue Removed: Yellow slough, devitalized tissue Severity: Fat Layer Exposed Amount of bleeding with debridement: Mild Bleeding Controlled with: Compression and gauze Patient tolerated procedure: Patient tolerated procedure well Assessment/Plan Active Problems (Last Updated 11/04/19 @ 10:19 by Nia Beyer) Ulcer of left groin with fat layer exposed (Chronic) Pressure ulcer of coccygeal region, stage 3 (Chronic) Morbid obesity (Chronic) Candidal intertrigo (Chronic) Assessment: ulcers of left groin. morbid obesity. Candidal intertrigo. Stage 3 pressure ulcer of coccyx Plan: Samra's ulcers were evaluated today. Her left groin cluster is improving. Will have her continue to use Fibracol to the ulcers of her left lower abdomen and coccyx and interdry sache to her abdominal fold area to absorb moisture and prevent ulcers from developing due to the heavy drainage. She should change ABDs to left groin area 2-3 times/day as needed for soiling through of heavy drainage. Diflucan will be continued once weekly to treat candidal intertrigo. Will have her take this weekly to every other week due to sweating and heat and her body habitus and chronic yeast which are causing her to develop ulcers. Encouraged her to increase protein intake and offload the areas of her ulcers. Advised to call with any fever, chills, increased. drainage. Due to the chronic stage 3 pressure ulcer of her coccyx she would benefit from offloading mattress such as alternating pressure mattress. 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 F/u in 2 weeks.
== END 2020-08-12 23:59 ==
LOC: WC 10:01
PROVIDERS: Family Provider Family Medicine; PCP Family Medicine; Referring Provider Family Medicine; Visit Provider Family Medicine
CPT/HCPCS: 11042

== ENCOUNTER 2020-08-04 13:04 | Outpatient (RCR) | payer MEDICARE, OTHER, SELFPAY ==
--- NOTE | 2020-08-04 14:24 | HP.PTEVAL ---
Patient's Visit Information ISELA CAMARENA is a 74 year old F referred to Physical Therapy by Dr. Colby Valenzuela DO with a diagnosis of Mononeuropathy, spinal stenosis, morbid obesity. Date of Evaluation: 08/04/20 Physical Therapist: Esau Reed, PT, ATC - Visit Plan Frequency: 1x/Week Duration: 1 Week Plan: Pt was assessed for a power wheelchair today. Discharge. - Subjective Pt reports she has been wheelchair bound for about 10 years. Pt reports she had septicemia at that time and has had to be in a wheelchair since. Pt reports prior to being sick, she would reside in a WC most of the time, but was able to ambulate a short distance. Pt reports she is not able to perform sit to stand transfers independently. Pt also is unable to transfer from her wheelchair to her bed without assistance and secondary to her decubitus ulcer.Pt reports she is completely nonambulatory at this time. Pt reports she has been in this current wheelchair for 5 years, but it is starting to become in poor condition and she needs a new wheel chair for community and home mobility. Pt reports she is in her wheelchair from when she gets out of bed to when she gets into bed, which is aproximately 19-20 hours per day. Pt notes she has had a history of pressure ulcers and notes that a new wheelchair will have a much better cusion for her to sit on. Pt also notes a Hx of LBP for several years. Pt reports she also has B shoulder pain and notes she is unable to lift her arms over her head against gravity. Pt notes good sensation in her feet as long as she is not standing upright. 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 - Pain LBP Pain Intensity (Out of 10): 6 Pain Intensity Range: 10 B shoulders Pain Intensity (Out of 10): 0 Pain Intensity Range: 7 Comment: No pain at rest - Objective Neuro: B LE sensation is WNL to light touch. B Patellar reflex= 1/3. MMT: B UE's are grossly 2/5 throughout available range. B LE's are grossly 4-/5 throughout. Transfers: Pt is able to perform a sit to stand transfer with a grab bar, but is only able to stand for 1 second until having to sit. Gait: Pt is unable to ambulate at this time. ROM: B LE's are WFL this date. B shoulder ROM is limited: flex= 35 degrees, abd= 50 degrees of elevation. Trunk control: Pt is able to sit without UE support for 10 minutes until needing to lean on her back rest. Edema: B LE has minor edema, no pitting at this time. Posture: Pt sits with a significant decrease in L/S lordosis with R sided concavity. Pt has a minor increas in T/S kyphosis, and minor C/S protrusion. - Goals Goal 1:: N/A - Rehabilitation Potential Physical Therapy Diagnosis: Pt is WC bound at this time with all mobility secondary to debilitation and spinal stenosis Rehabilitation Potential: Good - Anticipated Interventions Patient/Client Instruction: Educate patient on: Condition, Plan of Care For the Purpose of:: To improve ability to perform tasks related to life management Thank you for the opportunity to evaluate your patient. For Medicare and Medicare HMO plans, please review the plan of care and approve it. It will need to be FAXED BACK to us at [phone] for Medicare purposes. For Medicare only, by signing this I certify the plan of care. Please let me know if there are questions or concerns regarding this plan of care. Physician Signature: Date:
== END 2020-08-04 19:00 | disposition home or self-care (01) ==
LOC: PT 13:04
PROVIDERS: PCP Family Medicine; Referring Provider Family Medicine; Visit Provider Family Medicine
DX: G56.91 Unspecified mononeuropathy of right upper limb (principal); M48.061 Spinal stenosis, lumbar region without neurogenic claudication; M16.9 Osteoarthritis of hip, unspecified; M21.70 Unequal limb length (acquired), unspecified site; R22.43 Localized swelling, mass and lump, lower limb, bilateral; E66.01 Morbid (severe) obesity due to excess calories
CPT/HCPCS: 97162

== ENCOUNTER 2020-08-07 15:37 | Inpatient (IN) | payer MEDICARE, OTHER, SELFPAY ==
[2020-08-07 15:37] VITALS: BP 160/104; PULSE 93; RESP 18; TEMP 36.9; O2SAT 94; BMI 49.4
--- NOTE | 2020-08-07 15:58 | EKG12_ITS ---
Test Reason : GS Blood Pressure : / mmHG Vent. Rate : 090 BPM Atrial Rate : 090 BPM P-R Int : 164 ms QRS Dur : 072 ms QT Int : 372 ms P-R-T Axes : 000 060 048 degrees QTc Int : 455 ms Sinus rhythm with Premature atrial complexes Low voltage QRS Borderline ECG Confirmed by CACHORRO THOMPSON, JUAN ([id number]), story editor BROOKS WIGGINS ([id number]) on 08/12/2020 8:36:44 AM Referred By: OKSANA Confirmed By:JUAN IVORY MD
--- NOTE | 2020-08-07 16:09 | ED.DCSUM_ITS ---
History of Present Illness Informant: Patient, Family Onset: Weeks - 1 week Context: Gradual Onset Timing: Continuous Quality: Weakness Location: Generalized Current Severity: Severe Maximum Severity: Severe Worsened by: Movement Relieved by: nothing Associated Symptoms: Fatigue Narrative: 74-year-old female history of spinal stenosis currently wheelchair-bound also history of decubitus ulcer presents to the emergency department generalized weakness and fatigue. She has a chronic suprapubic catheter which she is concerned she has an infection in her urinary tract which is giving her the symptoms. She does have a history of urosepsis and she states that at this time she feels similar to that which occurred about a year ago. She is not currently on antibiotics. Her catheter was replaced 4 days ago. She has not had a fever at home. Denies any cough chest pain or shortness of breath. Denies abdominal pain. Denies back pain. Denies any nausea vomiting or diarrhea. She follows with the wound care center for her decubitus ulcer she was there last week and has not had any recent complications. Rest of her review of systems this time are negative. Prior similar symptoms: Yes Recent Illness/Hospitalization: No <Nhan Guzman - Last Filed: 08/07/20 18:32> <Kyree Celaya - Last Filed: 08/07/20 22:04> Chief Complaint: General Illness Past Medical History Prior records reviewed: Yes Past Medical History: - - Morbid obesity, suprapubic catheter, decubitus ulcer, diabetes mellitus, hypertension, hyperlipidemia, sleep apnea Surgical History: cholecystectomy, hysterectomy, - - Suprapubic catheter placement. Lives: With Family Smoking Status: Former smoker Alcohol: None Drugs: None - Family History Maternal Family History: Reports: Diabetes, Heart Disease - Her father had a CABG and CHF Paternal Family History: Reports: Heart Disease <Nhan Guzman - Last Filed: 08/07/20 18:32> <Kyree Celaya - Last Filed: 08/07/20 22:04> - Allergies and Home Meds Allergies/Adverse Reactions: Allergies adhesive tape Allergy (Verified 08/07/20 15:42) blisters Influenza Virus Vaccines Allergy (Verified 08/07/20 15:42) shortness of breath/severe wheezing iron Allergy (Verified 08/07/20 15:42) from IV form chest pressure and heart palpitations Sulfa (Sulfonamide Antibiotics) Allergy (Verified 08/07/20 15:42) Shortness of breath bactrim does not work for her-per pcp paperwork meloxicam [From [facility]] Adverse Reaction (Verified 08/07/20 15:42) gi upset seasonal allergies Allergy (Uncoded 08/07/20 15:42) Other Review of Systems All systems negative except as indicated General: Reports: Malaise. Denies: Chills, Fever, Sweats Eyes: Denies: Visual changes - bilaterally, Diplopia ENT: Denies: Rhinorrhea, Sore throat Cardiovascular: Denies: Chest pain, Palpitations Respiratory: Denies: Dyspnea, Cough, Dyspnea on exertion Gastrointestinal: Denies: Abdominal pain, Nausea, Vomiting, Diarrhea, Melena, Hematochezia Genitourinary: Denies: Dysuria, Hematuria, Frequency Musculoskeletal: Denies: Back pain, Swelling, Extremity Pain Skin: Denies: Rash, Wounds Neurological: Denies: Headache, Weakness, Parasthesia, Numbness <Nhan Guzman PA - Last Filed: 08/07/20 18:32> Physical Exam Vital Signs/Narrative: Vital Signs Temp Pulse Resp BP Pulse Ox 08/07/20 15:37 98.4 F 93 18 160/104 H 94 Inital Vital Signs reviewed: Yes General: Well nourished, Well developed, Obese, No Acute Distress Head: Normocephalic, Atraumatic Eyes: Perrl, EOMI ENT: Moist mucous membranes, No rhinorrhea Neck: Supple, Nontender Cardiovascular: Regular rate, Regular rhythm, No murmurs Respiratory: No distress, CTA bilaterally, Chest nontender Abdomen: Soft, Nontender, Nondistended, Normal bowel sounds Rectal: Nontender : - - Suprapubic catheter is in place Back: Nontender, Normal Inspection, - - Patient has decubitus ulcer. Patient states she does not feel well enough to let us examine it at this time. She states she just was at the wound care center 1 week ago and it is looking well at this time . Negative for: CVA tenderness Extremities: Nontender, Edema - Patient has symmetrical lower extremity edema. Normal DP and PT pulses. Compartments soft of both thighs and both legs. Patient has normal sensation of both lower extremities.. Negative for: Tenderness, Calf Tenderness Skin: Normal color, No rash, - - Patient has candidal intertrigo around her abdomen. No abscesses are noted. No skin necrosis or gangrenous tissue. She does have a decubitus ulcer at grade 3 that does not appear to be acutely infected.. Negative for: Trauma Neurological: Alert, Oriented x3, Cranial nerves II-XII grossly intact, Normal Strength, Normal Sensation Psychological: Normal affect, Normal Mood <Nhan Guzman - Last Filed: 08/07/20 18:32> Diagnostic/Tx/Re-eval Chest X-Ray - ED: 1 View, Read by ED Physician, Read by Radiologist, - - Atelectasis versus infiltrate right lower lobe - EKG Initial EKG Interpretation: Sinus Rhythm, No Acute Injury Pattern Prior: Unchanged - Medical Decision Making Patient presents to the emergency department complaining of generalized weakness and fatigue. She is concerned for UTI. She has a indwelling suprapubic catheter which was replaced 4 days ago. Her EKG showed sinus rhythm without signs of ST segment or T wave changes. Normal intervals. No ectopy. Patient has no fever her vital signs are stable. She was given IV fluids. Laboratory work-up shows a hemoglobin of 7.7 which is down from 9.9 on her last hemoglobin check 3 months ago. Creatinine is 2.2 which is up from 1.4 which is her baseline. Her chest x-ray shows atelectasis versus infiltrate right lower lobe. Patient is not having any cough or shortness of breath at this time. Rectal exam was performed which demonstrated brown stool. Hemoccult is pending. Urinalysis evidence of infection. Urine culture was sent and she was started on Rocephin. Patient will require admission. Vital signs stable she is not anticoagulated. <Nhan Guzman - Last Filed: 08/07/20 18:32> - Medical Decision Making Agree with above assessment and plan by MELCHOR. She is been having generalized weakness. She started on antibiotics. Her hemoglobin has trended downward but no melanotic stools. Her creatinine also mildly elevated. Patient is brought into the hospital for further evaluation and management. Patient understands and is agreeable this plan. <Kyree Celaya - Last Filed: 08/07/20 22:04> ED Disposition <Nhan Guzman - Last Filed: 08/07/20 18:32> <Kyree Celaya - Last Filed: 08/07/20 22:04> - Plan for ED Patient: Disposition: Acute Care Hospital [facility] Diagnosis: MICHAELLE (acute kidney injury), Candidal intertrigo, Morbid obesity, Pressure ulcer of coccygeal region, stage 3, Wheelchair dependence, UTI (urinary tract infection) due to urinary indwelling catheter, Anemia
--- NOTE | 2020-08-07 16:15 | RAD_ITS ---
STUDY: X-RAY CHEST REASON FOR EXAM: Female, 74 years old. GENERAL ILLNESS, THINKS SHE HAS A UTI TECHNIQUE: Single frontal view of the chest. COMPARISON: 08/17/2019 FINDINGS: There is a vague opacity within the right lower lung. Normal size heart. Normal mediastinum and peace. Normal visualized pulmonary arteries. Normal visualized aortic arch and descending thoracic aorta. Normal visualized thoracic spine. Normal visualized ribs, clavicles, and shoulders. There is no demonstrated abnormality of the visualized soft tissue structures of the upper abdomen. RAD/Chest 1 View (Portable) IMPRESSION: Nonspecific right basilar opacity may be secondary to underlying atelectasis and/or pneumonia. Electronically Signed: Idalia Sales MD at 16:52 EDT Tel , Service support ,
[2020-08-07 16:59] LABS: Absolute Lymphocyte Count 0.92 X10^3/uL (0.83-4.51); Absolute Neutrophil Count 7.5 X10^3/uL (2.0-7.7); Basophil# 0.03 X10^3/uL; Basophil% 0.3 % (0-1); Eosinophil# 0.17 X10^3/uL; Eosinophils% 1.8 % (0-5); Hemoglobin 7.7 g/dL (12.0-15.0); Lymphocyte # 0.92 X10^3/ul (4.0); Lymphocyte % 9.6 % (19-41); Mean Corp Hgb Conc 29.6 g/dL (32-36); Mean Corpuscular Hgb 25.3 pg (27.0-32.0); Mean Corpuscular Volume 85.5 fL (81-99); Mean Platelet Vol. 8.9 fl (6.2-12.0); Monocyte% 9.4 % (0-10); NRBC Flagged by Analyzer 0 % (0-5); Neutrophil # 7.49 X10^3/uL (2.7-7.7); Neutrophil % 77.8 % (47-70); Platelet Count 398 K/mm3 (150-450); RBC Distribution Width CV 17.3 % (11.6-14.6); RBC Distribution Width SD 53.9 fl (35.1-43.9); Red Blood Count 3.04 M/mm3 (4.2-5.4); White Blood Count 9.6 K/mm3 (4.4-11.0)
[2020-08-07 17:15] LABS: Anion Gap 9 (5-15); BUN 41 mg/dL (7-18); BUN/Creat Ratio 19.3 RATIO (10-20); Chloride 106 mmol/L (98-107); Creatinine, Serum 2.12 mg/dL (0.55-1.02); EST Glomerular Filtration Rate 24 mL/min (>60); Est Glom Filt Rate - Afr Amer 29 mL/min (>60); Estimated Creatinine Clearance 22.98 ml/min; Glucose 119 mg/dL (74-106); Potassium 4.8 mmol/L (3.5-5.1); Sodium Level 134 mmol/L (136-145)
[2020-08-07 17:35] LABS: Bacteria 0 SEEN /hpf (None Seen); Mucous, Urine 0 SEEN /hpf (<or=2+); Red Blood Cells-Urine 0 SEEN /hpf (0-5); Squamous Epithelial Cells - UA 0 SEEN /hpf (5-10)
[2020-08-07 17:39] LABS: Color, Urine Amber (Yellow); Glucose, Dipstick Normal (Normal); Ketone-Dipstick 5 mg/dl (Negative); Leukocyte Esterase-Dipstick 500 /ul (Negative); Nitrite-Dipstick Negative (Negative); Occult Blood-Urine 250 /ul (Negative); Protein-Dipstick 500 mg/dl (Negative); Urine Bilirubin Dipstick Negative (Negative); Urine Clarity Turbid (Clear); Urine Urobilinogen Normal (Normal)
[2020-08-07 18:01] LABS: White Blood Cells >100 SEEN /hpf (0-5)
--- NOTE | 2020-08-07 18:33 | HP.PCM_ITS ---
History of Present Illness Date of Admission: 08/07/20 Chief Complaint: weakness The patient is a 74 year old F with an extensive PMH as outlined. She was admitted via the ED on 08/07/2020 with a complaint of generalised weakness. She says she has just been feeling weak and tired for the past few weeks. She had no fever, chills, nausea, vomiting or diarrhea. She denied any frequency of urination nor burning with urination. She denied any cough or shortness of breath or chest pain. Review of systems is otherwise negative. Labs showed temperature of 98.9F, BP of 108/53 and ND of 89 as well as RR of 17. Chemistry showed sodiium of 134, with Cr of 2.12 and bicarb of 19. CBC showed Hb of 7.7 and platelets of 398. UA showed urine wbc of >100,. but no urine bacteria. She has been admitted to be managed for MICHAELLE on CKD 3 and UTI as well as acute on chronic anemia. [] Past Medical History Past Medical History (Chronic Problems): Chronic Problems (Last Updated 11/04/19 @ 10:19 by Nia Beyer) Wheelchair dependence (Chronic) History of atrial fibrillation (Chronic) Ulcer of abdomen wall with fat layer exposed (Chronic) Ulcer of left groin with fat layer exposed (Chronic) Pressure ulcer of coccygeal region, stage 3 (Chronic) Morbid obesity (Chronic) Anxiety and depression (Chronic) HLD (hyperlipidemia) (Chronic) UTI (urinary tract infection) due to urinary indwelling catheter (Chronic) Chronic gram negative bacteria Debility (Chronic) Depression (Chronic) VITA (obstructive sleep apnea) (Chronic) Candidal intertrigo (Chronic) Medical History: Medical History (Last Updated 11/04/19 @ 10:19 by Nia Beyer) History of atrial fibrillation (Chronic) Z86.79 Ulcer of abdomen wall with fat layer exposed (Chronic) L98.492 Ulcer of left groin with fat layer exposed (Chronic) L98.492 Pressure ulcer of coccygeal region, stage 3 (Chronic) L89.153 Morbid obesity (Chronic) E66.01 Anxiety and depression (Chronic) F41.9, F32.9 HLD (hyperlipidemia) (Chronic) E78.5 UTI (urinary tract infection) due to urinary indwelling catheter (Chronic) T83.511A, N39.0 Chronic gram negative bacteria Severe sepsis (Resolved) A41.9, R65.20 V tach (Resolved) I47.2 VITA (obstructive sleep apnea) (Chronic) G47.33 Candidal intertrigo (Chronic) B37.2 Debility R53.81 DM2 (diabetes mellitus, type 2) E11.9 Essential hypertension I10 VITA (obstructive sleep apnea) G47.33 Allergies adhesive tape Allergy (Verified 08/07/20 15:42) blisters Influenza Virus Vaccines Allergy (Verified 08/07/20 15:42) shortness of breath/severe wheezing iron Allergy (Verified 08/07/20 15:42) from IV form chest pressure and heart palpitations Sulfa (Sulfonamide Antibiotics) Allergy (Verified 08/07/20 15:42) Shortness of breath bactrim does not work for her-per pcp paperwork meloxicam [From [facility]] Adverse Reaction (Verified 08/07/20 15:42) gi upset seasonal allergies Allergy (Uncoded 08/07/20 15:42) Other Home Medications: Ambulatory Orders Medication Instructions Recorded Furosemide [Lasix] 20 mg PO BID 09/30/13 Albuterol Inhaler [Ventolin Hfa] 2 puff INHALATION Q4H PRN PRN 10/30/18 Baclofen 10 mg PO TID 10/30/18 Gabapentin [Neurontin] 600 mg PO BID 10/30/18 Nystatin Powder [Mycostatin Powder] 1 applicatio TOPICAL BID PRN PRN 10/30/18 Oxybutynin Chloride [Ditropan Xl] 15 mg PO DAILY 10/30/18 Vitamin E 1,000 iu PO DAILY 10/30/18 metFORMIN HCl [Glucophage] 500 mg PO BID 10/30/18 Cyanocobalamin (Vitamin B-12) 1,000 mcg PO DAILY 12/17/18 [B-12] Pravastatin [Pravachol] 20 mg PO QHS 12/17/18 Duloxetine HCl 60 mg PO QHS 03/22/19 Methenamine Hippurate [Hiprex] 1 gm PO BID 04/05/19 Fluconazole 200 mg PO SA 07/02/19 Hydrocodone Bitart/Apap 5-325 1 tab PO Q6H PRN PRN 07/02/19 [[place] 5/325] Venlafaxine XR [Effexor Xr] 150 mg PO BID 07/02/19 Ascorbic Acid [Vitamin C] 500 mg PO BID 08/18/19 DiphenhydrAMINE [Benadryl] 20 mg PO BID PRN PRN 08/18/19 Pantoprazole Sodium [Protonix] 40 mg PO DAILY 08/18/19 Potassium Chloride [K-Dur] 10 meq PO DAILYCM 08/18/19 C,E,Zinc,Copper 11/Bymkf5q/Lut 1 ea PO TID 10/19/19 [Eye Health Adult 50 Plus Sftgl] Cholecalciferol (VIT D3) [Vitamin 1,000 unit PO DAILY 10/19/19 D3] L.acidoph,Paracasei, B.lactis 1 ea PO DAILY 10/19/19 [Probiotic] Ranitidine [Zantac] 150 mg PO DAILY 10/19/19 Amox/Clavulanate Tablet [Augmentin 875 mg PO Q12H #8 tab 10/22/19 Tablet] metoprolol tartrate 25 mg tablet 25 mg PO BID #60 tab 11/04/19 Aspirin [Aspirin, Baby] 12/06/19 Cephalexin [Keflex] 250 mg PO BID 12/06/19 Baclofen 20 mg PO DINNER 03/20/20 Baclofen [Lioresal] 10 mg PO BID 03/20/20 Surgical History: Surgical History (Last Updated 11/04/19 @ 10:12 by Nia Beyer) H/O: hysterectomy Z90.710 Same time as open gallbladder History of cholecystectomy Z90.49 Open, same time as hysterectomy History of tonsillectomy Z90.89 Hx of appendectomy Z90.49 Surgical History: cholecystectomy, hysterectomy, - - Suprapubic catheter placement. 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 Denies: Anorexia, Chills, Fever Eyes: Denies: Blurred vision HEENT: Denies: Head Aches, Sinus Congestion, Sinus Drainage Cardiovascular: Denies: Chest Pain, Palpitations Respiratory: Denies: Cough, Shortness of Breath, Shortness of breath at rest, Shortness of breath upon exertion, Sputum production Gastrointestinal: Denies: Abdominal Pain, Nausea, Vomiting Genitourinary: Denies: Dysuria Musculoskeletal: Denies: Joint Pain, Joint Tenderness Skin: Denies: Rash, Wounds Neurological: Denies: Numbness, Tingling, Focal weakness Psychiatric: Denies: Anxiety, Depression, Homicidal Ideations, Suicidal Ideations Hematologic/ Lymphatic: Denies: Easy Bruising, Easy Bleeding VTE Information - Inpt Only VTE Present on Admission: No VTE Pharm Prophylaxis ordered?: Yes Patient Problems: Active and Suspected Problems (Last Updated 11/04/19 @ 10:19 by Nia Beyer) Anemia (Acute) MICHAELLE (acute kidney injury) (Acute) - Physical Exam Vitals/I&O's: Vital Signs Temp Pulse Resp BP Pulse Ox 98.4 F 93 18 160/104 H 94 08/07/20 15:37 08/07/20 15:37 08/07/20 15:37 08/07/20 15:37 08/07/20 15:37 Oxygen Delivery Method Room Air Weight: 315 lb 4.176 oz Body Mass Index (BMI) 49.4 General: Alert, Oriented x3, Cooperative, Lethargic, - - super morbid obesity HEENT: Atraumatic, PERRLA, EOMI, Normocephalic Oral: Dry Mucosa Neck: Supple, No JVD, Negative Carotid Bruits Lungs: Clear to auscultation, Normal air movement, No rhonchi, No wheeze, No rales Cardiovascular: Regular rate, Regular Rhythm, Normal S1, Normal S2, No murmurs Abdomen: Bowel Sounds Present, Soft, Non Tender, Non-Distended, No Hepato- splenomegaly, Obese Extremities: No clubbing, No cyanosis, No edema, Capillary Refill Less than 3 Seconds Skin: No rashes, No breakdown Musculoskeletal: No Tenderness to Palpation of Joints or Extremities Lymphatic: No Cervical, Supraclavicular, or Inguinal Adenopathy Neurological: Cranial nerves II-XII grossly intact, Neuro grossly intact, Motor Exam 5/5 strength throughout Psych/Mental Status: Normal Affect, Appropriate, Agitated, Anxious, Alert and oriented to time, place, person, mood and affect Laboratory Results 08/07/20 16:43: WBC 9.6, RBC 3.04 L, Hgb 7.7 L, Hct 26.0 L, MCV 85.5, MCH 25.3 L , MCHC 29.6 L, RDW Std Deviation 53.9 H, RDW Coeff of Jessi 17.3 H, Plt Count 398, MPV 8.9, Immature Gran % (Auto) 1.100 H, Neut % (Auto) 77.8 H, Lymph % (Auto) 9.6 L, Lucas % (Auto) 9.4, Eos % (Auto) 1.8, Baso % (Auto) 0.3, Absolute Neuts (auto) 7.5, Absolute Lymphs (auto) 0.92, Nucleated RBC % 0 08/07/20 16:43: Sodium 134 L, Potassium 4.8, Chloride 106, Carbon Dioxide 19.0 L , Anion Gap 9, BUN 41 H, Creatinine 2.12 H, Estim Creat Clear Calc 22.98, Est GFR (MDRD) Af Amer 29 L, Est GFR (MDRD) Non-Af 24 L, BUN/Creatinine Ratio 19.3, Glucose 119 H, Calcium 9.0 08/07/20 17:24: Urine Color Gloria, Urine Clarity Turbid, Urine pH 7.0, Ur Specific [place] 1.010, Urine Protein 500 H, Urine Glucose (UA) Normal, Urine Ketones 5 H, Urine Occult Blood 250 H, Urine Nitrite Negative, Urine Bilirubin Negative, Urine Urobilinogen Normal, Ur Leukocyte Esterase 500 H, Urine RBC 0 SEEN, Urine WBC >100 SEEN, Ur Squamous Epith Cells 0 SEEN, Urine Bacteria 0 SEEN, Urine Mucus 0 SEEN Diagnostic Data Chest X-Ray 08/07/20 16:15 IMPRESSION: Nonspecific right basilar opacity may be secondary to underlying atelectasis and/or pneumonia. Electronically Signed: Idalia Sales MD at 16:52 EDT Tel , Service support , Current Medications Sodium Chloride () 1,000 mls @ 999 mls/hr IV .Q1H1M ONE Stop: 08/07/20 18:48 Assessment/Plan All Active Problems (Last Updated 11/04/19 @ 10:19 by Nia Beyer) Anemia (Acute) Severe sepsis (Resolved) Cellulitis of left abdominal wall (Resolved) Severe sepsis (Resolved) V tach (Resolved) MICHAELLE (acute kidney injury) (Acute) Suprapubic catheter dysfunction (Resolved) 74 y/o admitted with a complaint of general malaise # UTI * UA showed evidence of UTI; has a suprapubic catheter in place that was just changed at her urologist's on Monday * started on IV ceftriaxone * Has a history of recurrent UTIs and has a chronic indwelling suprapubic catheter. * get urine cultures * hydrate gently with IVF * # MICHAELLE on CKD * Cr is 2.12. Baseline is ~ 1.3-1.4 * likely due to dehydration, due to not eating or drinking well * hydrate gently with IVF * if Cr trends upwards, get urine electrolytes and renal USG. * # Acute on chronic anemia * Hb is 7.7, baseline is ~ 9-10 * stool for occult blood pending * check iron panel * has never had a colonoscopy * consult general surgery * #Type 2 diabetes mellitus: ISS. Accuchecks ACHS. hold metformin., #History of A. fib: Rate controlled. On metoprolol. #Hypertension: On Cardizem. Will hold lisinopril on account of MICHAELLE on CKD. #Hyperlipidemia: On statin # super Morbid obesity: Complicates acute care, expected prognosis and management. #Depression: On Effexor and Cymbalta DVT Prophylaxis: Lovenox renally dosed CODE STATUS: Full code * Patient counseled extensively about different types of CODE STATUS including full code, DNR CCA and DNR CCA. Patient elects to be full code. * Total [id number]-dmni time 17 minutes. Inpatient E&M: 87152 Init Hosp L3 Procedures: 26563 Advncd Care Plan 30 Min
[2020-08-07] MEDS: 0.9% Normal Saline 1,000 ML 999 ML IV (18:41)
[2020-08-07] MEDS: Ceftriaxone 1 GM/50 ML BAG IV (18:41)
[2020-08-07 18:51] VITALS: BP 108/53
[2020-08-07 18:58] VITALS: BP 108/53; PULSE 89; RESP 17; TEMP 37.2; O2SAT 96
[2020-08-07 19:16] VITALS: BP 113/51; PULSE 87; RESP 18; TEMP 36.7; O2SAT 94
[2020-08-07 19:21] VITALS: BMI 49.4
[2020-08-07 19:40] VITALS: BMI 48.3
[2020-08-07 20:29] VITALS: O2SAT 96
[2020-08-07 20:48] LABS: Ferritin 91 ng/mL (8-252); Iron 24 ug/dL (50-170); Iron Binding Capacity,Total 338 ug/dL (250-450); PERCENT IRON SATURATION 7.1 % (15.0-55.0)
[2020-08-07] MEDS: 0.9% Normal Saline 1,000 ML 150 ML IV (22:25)
[2020-08-07 22:30] LABS: Bedside Glucose 102 mg/dL (70-110)
[2020-08-08] VITALS (20 sets, daily range): BP systolic 103–161; BP diastolic 39–108; PULSE 72–99; RESP 16–18; TEMP 36.7–37.4; O2SAT 92–100
[2020-08-08] MEDS: Nystatin Powder 15gm Bottle 1 APPLIC TOPICAL ×3 (00:19→22:01)
[2020-08-08] MEDS: Menthol/Lanolin/Calamine/Znox 113 GM Tube 1 APPLIC TOPICAL ×5 (00:20→21:59)
[2020-08-08] MEDS: 0.9% Normal Saline 1,000 ML 150 ML IV (04:59)
[2020-08-08 06:37] LABS: Absolute Neutrophil Count 5.1 X10^3/uL (2.0-7.7); Basophil# 0.03 X10^3/uL; Basophil% 0.4 % (0-1); Eosinophil# 0.17 X10^3/uL; Eosinophils% 2.4 % (0-5); Hematocrit 23.9 % (37-47); Hemoglobin 6.9 g/dL (12.0-15.0); Lymphocyte % 12.6 % (19-41); Mean Corp Hgb Conc 28.9 g/dL (32-36); Mean Corpuscular Hgb 24.4 pg (27.0-32.0); Mean Corpuscular Volume 84.5 fL (81-99); Mean Platelet Vol. 8.8 fl (6.2-12.0); Monocyte% 11.2 % (0-10); NRBC Flagged by Analyzer 0 % (0-5); Neutrophil # 5.12 X10^3/uL (2.7-7.7); Platelet Count 354 K/mm3 (150-450); RBC Distribution Width CV 17.3 % (11.6-14.6); RBC Distribution Width SD 54.1 fl (35.1-43.9); Red Blood Count 2.83 M/mm3 (4.2-5.4); White Blood Count 7.1 K/mm3 (4.4-11.0)
[2020-08-08 06:55] LABS: Bedside Glucose 111 mg/dL (70-110)
[2020-08-08 07:03] LABS: Anion Gap 4 (5-15); BUN 38 mg/dL (7-18); BUN/Creat Ratio 21.1 RATIO (10-20); Calcium,Total 8.4 mg/dL (8.5-10.1); Chloride 109 mmol/L (98-107); EST Glomerular Filtration Rate 29 mL/min (>60); Est Glom Filt Rate - Afr Amer 35 mL/min (>60); Estimated Creatinine Clearance 27.07 ml/min; Glucose 111 mg/dL (74-106); Potassium 4.5 mmol/L (3.5-5.1); Sodium Level 136 mmol/L (136-145)
--- NOTE | 2020-08-08 08:10 | PCM.PN.HOSP ---
Patient Problems: Active and Suspected Problems (Last Reviewed 08/08/20 @ 10:[address] Jose Yu MD) Anemia (Acute) MICHAELLE (acute kidney injury) (Acute) Subjective: Patient overnight with no acute events per self and per nursing report except ongoing evident hematuria and guaiac stool did come back positive but patient denies any significant stool changes but notes she does not look possibly secondary to her habitus and ambulatory difficulties, wheelchair-bound. Patient notes generalized weakness and fatigue has mildly improved. Discussed current status, plan PRBC administration and she is amenable. Discussed likely endoscopy planned and she is also amenable. Discussed labs including improvement of her renal function with plan continue to hold of her nephrotoxic regimen until further improved. Patient denies fevers, chills, nausea, emesis, abdominal pain, chest pain or dyspnea. Objective: Physical Examination: General: awake, alert, oriented x 3 and cooperative, seated upright in bed in no apparent distress. Skin: normal color, turgor, no icterus, cyanosis except stasis disease and posterior lower back and coccyx irritation, decub, unclear stage, evidence intertrigo. HEENT: AT/NC, EOMI, PERRLA, mildly dry MM. Lungs: Breath sounds, distant, moderate effort, no obvious evidence rales, rhonchi or wheezing. Heart: Regular rate and rhythm; no gallop, rub audible. Abdomen: soft, morbidly obese, no evidence of abdominal discomfort this time including suprapubic region, distant normal bowel sounds, unable to discern distention given habitus, suprapubic catheter present. Extremities: no cyanosis, clubbing, bilateral lower extremity edema, 1+. Neurological: patient awake, alert, oriented x 3; cognitive function intact; pupils equally reactive to light and accomodation; cranial nerves II-XII grossly normal, moving all 4 extremities, but significantly reduced with functional paraplegia, uses a wheelchair chronically, strength moderately to severely global decreased. Psychiatric: affect appears mildly fatigued otherwise normal, no acute evidence of depressive or anxiety feelings. Vitals/I&O's: Vital Signs Temp Pulse Resp BP Pulse Ox 98.4 F 91 18 106/48 L 98 08/08/20 04:04 08/08/20 05:57 08/08/20 04:04 08/08/20 05:57 08/08/20 04:04 Oxygen Delivery Method Room Air Weight: 308 lb 6.827 oz Body Mass Index (BMI) 48.3 Intake and Output for Last 24 Hours 08/06/20 08/07/20 08/08/20 23:59 23:59 23:59 Intake Total 1162.48 / 1162.48 1085 / 1085 Output Total 2049 / 2049 600 / 600 Balance -887.52 / -887.52 485 / 485 Microbiology Past 72 Hours 08/07/20 17:35 Stool Stool Occult Blood (WENDI) - Final Occult Blood Positive Laboratory Results 08/07/20 16:43: WBC 9.6, RBC 3.04 L, Hgb 7.7 L, Hct 26.0 L, MCV 85.5, MCH 25.3 L, MCHC 29.6 L, RDW Std Deviation 53.9 H, RDW Coeff of Jessi 17.3 H, Plt Count 398, MPV 8.9, Immature Gran % (Auto) 1.100 H, Neut % (Auto) 77.8 H, Lymph % (Auto) 9.6 L, [place] % (Auto) 9.4, Eos % (Auto) 1.8, Baso % (Auto) 0.3, Absolute Neuts (auto) 7.5, Absolute Lymphs (auto) 0.92, Nucleated RBC % 0 08/07/20 16:43: Sodium 134 L, Potassium 4.8, Chloride 106, Carbon Dioxide 19.0 L, Anion Gap 9, BUN 41 H, Creatinine 2.12 H, Estim Creat Clear Calc 22.98, Est GFR (MDRD) Af Amer 29 L, Est GFR (MDRD) Non-Af 24 L, BUN/Creatinine Ratio 19.3, Glucose 119 H, Calcium 9.0 08/07/20 16:43: Iron 24 L, TIBC 338, Iron Saturation 7.1 L, Ferritin 91 08/07/20 17:24: Urine Color Gloria, Urine Clarity Turbid, Urine pH 7.0, Ur Specific Kinsey 1.010, Urine Protein 500 H, Urine Glucose (UA) Normal, Urine Ketones 5 H, Urine Occult Blood 250 H, Urine Nitrite Negative, Urine Bilirubin Negative, Urine Urobilinogen Normal, Ur Leukocyte Esterase 500 H, Urine RBC 0 SEEN, Urine WBC >100 SEEN, Ur Squamous Epith Cells 0 SEEN, Urine Bacteria 0 SEEN, Urine Mucus 0 SEEN 08/07/20 22:16: POC Glucose 102 08/08/20 06:21: WBC 7.1, RBC 2.83 L, Hgb 6.9 L, Hct 23.9 L, MCV 84.5, MCH 24.4 L, MCHC 28.9 L, RDW Std Deviation 54.1 H, RDW Coeff of Jessi 17.3 H, Plt Count 354, MPV 8.8, Immature Gran % (Auto) 1.400 H, Neut % (Auto) 72.0 H, Lymph % (Auto) 12.6 L, [place] % (Auto) 11.2 H, Eos % (Auto) 2.4, Baso % (Auto) 0.4, Absolute Neuts (auto) 5.1, Absolute Lymphs (auto) 0.90, Nucleated RBC % 0 08/08/20 06:21: Sodium 136, Potassium 4.5, Chloride 109 H, Carbon Dioxide 23.0, Anion Gap 4 L, BUN 38 H, Creatinine 1.80 H, Estim Creat Clear Calc 27.07, Est GFR (MDRD) Af Amer 35 L, Est GFR (MDRD) Non-Af 29 L, BUN/Creatinine Ratio 21.1 H, Glucose 111 H, Calcium 8.4 L 08/08/20 06:35: POC Glucose 111 H 08/08/20 08:02: Blood Type Pending, Antibody Screen Pending, Crossmatch See Detail 08/08/20 08:02: Hgb Pending, Hct Pending Current Medications Hydrocodone Bitart/Acetaminophen (Hinckley 5mg-325mg) 1 tablet PO Q6H PRN PRN PRN Reason: Pain Score 1-10/10 Ascorbic [facility] (Vitamin C) [facility] Baclofen (Lioresal) 20 mg PO DINNER [facility] Baclofen (Lioresal) 10 mg PO BID [facility] Calamine/Phenol (Calmoseptine Ointment) 1 applic TOPICAL 4X/DAY [facility]; Protocol Last Admin: 08/08/20 00:20 Dose: 1 applicatio Documented by: Duloxetine HCl (Cymbalta) 60 mg PO QHS ZARINA Fluconazole (Diflucan) 200 mg PO Sa@1000 ZARINA Furosemide (Lasix) 40 mg IV X1 ZARINA Stop: 08/08/20 23:59 Gabapentin (Neurontin) 600 mg PO BID [facility] Ceftriaxone Sodium (Rocephin) 1 gm in 50 mls @ 100 mls/hr IV Q24 [facility] Stop: 08/15/20 10:01 Sodium Chloride () 1,000 mls @ 100 mls/hr IV .Q10H [facility] Stop: 08/08/20 17:34 Insulin Human Lispro (Humalog Kwikpen (Bkc)) 0 unit SC ACHS [facility]; Protocol Last Admin: 08/08/20 06:35 Dose: Not Given Documented by: Methenamine Hippurate (Hiprex) 1 gm PO BID [facility] Metoprolol Tartrate (Lopressor (Beta Genaro)) 25 mg PO BID [facility] Nitroglycerin (Nitrostat) 0.4 mg SUBLINGUAL Q5M PRN PRN Reason: CARDIAC/CHEST PAIN Nutritional Formula (Lactose Free) (Glucerna Shake) 120 ml PO 4X/DAY [facility] Nystatin (Mycostatin Powder) 1 applic TOPICAL BID [facility]; Protocol Last Admin: 08/08/20 00:19 Dose: 1 applicatio Documented by: Ondansetron HCl (Zofran) 4 mg IV Q8H PRN PRN PRN Reason: NAUSEA/VOMITING Pantoprazole Sodium (Protonix) 40 mg PO DAILY [facility] Potassium Chloride (K-Dur) 10 meq PO DAILYCM [facility] Pravastatin Sodium (Pravachol) 20 mg PO QHS [facility] Sodium Chloride () 10 - 40 ml IV UD PRN PRN Reason: SALINE FLUSH Tolterodine Tartrate (Detrol La) 4 mg PO DAILY [facility] Venlafaxine HCl (Effexor Xr) 150 mg PO BID [facility] STROKE Vital Signs/Narrative: Vital Signs Pulse BP 08/08/20 05:57 91 106/48 L 08/08/20 05:24 99 Medical Necessity - Tobacco Use Smoking Status: Never smoker Assessment/Plan All Active Problems (Last Reviewed 08/08/20 @ 10:[address] Jose Yu MD) Anemia (Acute) Severe sepsis (Resolved) Cellulitis of left abdominal wall (Resolved) Severe sepsis (Resolved) V tach (Resolved) MICHAELLE (acute kidney injury) (Acute) Suprapubic catheter dysfunction (Resolved) The patient is a 74 y/o F w/ PMHx: HTN, HLD, Depression and Anxiety, Coccygeal stage III decub, Neurogenic bladder with Chronic indwelling catheter (suprapubic), Diabetes mellitus type II, CKD stage III, GERD, Functional paraplegia chronically wheelchair bound, Morbid obesity, ? PAF who presents to the [facility] ED on 08/07/20 secondary to increasing malaise, fatigue, concern for foul smelling turbid appearing urine. 1. Malaise, Fatigue, Weakness, Multifactorial, including Acute complicated urinary tract infection with suprapubic catheter and #2, #3: Work-up in the ED included T 98.4, heart rate 93, BP 160/104, respiratory rate 18, 94% on room air, CBC with WC 9.6, hemoglobin 7.9, platelet 398 with minimal left shift, BMP with sodium 134, carbon oxide 19, BUN/creatinine 41/2.12, glucose 119, urinalysis with urine appearing turbid, occult blood 250, ketone 5, negative nitrite, 500 leukocyte esterase, greater than 100 WBCs, no urine bacteria, stool guaiac positive, urine culture pending per ED. Recently changed per her the urologist on Monday prior to current presentation.patient mid to medical surgical floor, continued on IV Rocephin, Urine culture with preliminarily gram-negative odin x2 both 50,000-80,000 colony-forming units, awaiting speciation and specificity, continue judicious hydration. PT/OT consultations for discharge planning. 2. Acute GI Bleed w/ resultant Acute on Chronic secondary to Acute Blood Loss Anemia: Patient with no knowledge to possible GI bleed, admission hemoglobin 7.7, guaiac obtained and positive, hemoglobin did decrease to 6.9, will obtain 2 unit PRBC administration and transition to clears, general surgery consulted and noted plan for endoscopy on Monday with prep on 08/09/2020, plan repeat hemoglobin with trending following 2 unit PRBC administration, maintain on IV PPI, diet alteration from clears per discretion of general surgery. 3. Acute kidney injury: Secondary to acute presentation #1 and #2 is noted, improving suspected hypovolemic component. Admission BUN/Cr 41/2.12, prior baseline creatinine noted to be 1.4-1.6 more commonly, most recently 10/22/2019 1.07 but not uncommon to be 1.3-1.4 primarily, continued on hydration, repeat 08/08/2020 BUN/creatinine 38/1.80, slowly improving, continue to hold nephrotoxic medications. 4. Functional paraplegia, wheelchair-bound: We will continue patient home baclofen, Ditropan regimen, recent suprapubic catheter change, treating #1 is noted, continue positional changes, fall precautions, PT OT assessments, case management/social work aware of patient presentation with home assessment needs ongoing, wound care consultation for skin changes/decub coccyx. 5. Diabetes mellitus type II: Hold oral home regimen, currently clears, ADA diet once appropriate per general surgery discretion, accu checks w/ ISS. 6. Morbid Obesity: Weight loss and lifestyle changes encouraged, nutrition consulted, changing to an alternate bed for patient benefit. 7. GERD: We will maintain on IV Protonix. Patient per currently stays on several agents including Protonix, ranitidine, famotidine. She notes she is no longer taking all of these and only on Protonix. She notes that she was having some issues with reflux previously. 8. Hypertension: Continue home regimen including metoprolol with hold parameters, holding nephrotoxic regimen, add back once appropriate, IV Lasix x1 in between PRBC especially given MICHAELLE, PRN hydralazine. 9. Hyperlipidemia: Continue home statin regimen. 10. Anxiety and depression: We will continue patient home venlafaxine regimen. 11. VITA: We will initiate CPAP nightly. 12. DVT prophylaxis: SCDs, defer chemoprophylaxis given acute presentation as noted #2. 13. CODE STATUS: Full. Inpatient E&M: 58972 Subs Hosp L3
[2020-08-08 08:16] LABS: Hematocrit 23.7 % (37-47)
[2020-08-08] MEDS: Baclofen 10 MG Tablet PO ×2 (08:47→22:01)
[2020-08-08] MEDS: Tolterodine Tartrate 4 MG CAP.SA PO (08:47)
[2020-08-08] MEDS: Venlafaxine XR 150 MG Capsule PO ×2 (08:47→22:00)
[2020-08-08] MEDS: Ascorbic Acid 500 MG Tablet PO ×2 (08:48→16:52)
[2020-08-08] MEDS: Methenamine Hippurate 1 GM Tablet PO ×2 (08:48→22:00)
[2020-08-08] MEDS: Metoprolol Tartrate 25 MG Tablet PO ×2 (08:48→22:04)
[2020-08-08] MEDS: Fluconazole 100 MG Tablet 200 MG PO (08:49)
[2020-08-08] MEDS: Gabapentin 600 MG Tablet PO ×2 (08:49→22:01)
[2020-08-08] MEDS: 0.9% Normal Saline 1,000 ML 100 ML IV (08:50)
--- NOTE | 2020-08-08 08:53 | PCA ---
Placed call to [facility] Bed service an Evision Matress has been ordered 08/08/20 for this patient. Confirmation numbetr is [id number]
[2020-08-08] MEDS: Ceftriaxone 1 GM/50 ML BAG IV (09:19)
--- NOTE | 2020-08-08 10:10 | CON.PCM_ITS ---
Problem List (1) Anemia Status: Acute Qualifiers: Anemia type: iron deficiency Iron deficiency anemia type: chronic blood loss Qualified Code(s): D50.0 - Iron deficiency anemia secondary to blood loss (chronic) Reason for Consult Date of Consultation: 08/08/20 History of Present Illness: The patient is a 74 year old F with an extensive PMH as outlined. She was admit [facility]ina via the ED on 08/07/2020 with a complaint of generalised weakness. She says she has just been feeling weak and tired for the past few weeks. She had no fever, chills, nausea, vomiting or diarrhea. She denied any frequency of urination nor burning with urination. She denied any cough or shortness of breath or chest pain. Review of systems is otherwise negative. Labs showed temperature of 98.9F, BP of 108/53 and UT of 89 as well as RR of 17. Chemistry showed sodiium of 134, with Cr of 2.12 and bicarb of 19. CBC showed Hb of 7.7 and platelets of 398. UA showed urine wbc of >100,. but no urine bacteria. She has been admitted to be managed for MICHAELLE on CKD 3 and UTI as well as acute on chronic anemia. Past Medical History Past Medical History (Chronic Problems): Chronic Problems (Last Updated 11/04/19 @ 10:19 by Nia Beyer) Wheelchair dependence (Chronic) History of atrial fibrillation (Chronic) Ulcer of abdomen wall with fat layer exposed (Chronic) Ulcer of left groin with fat layer exposed (Chronic) Pressure ulcer of coccygeal region, stage 3 (Chronic) Morbid obesity (Chronic) Anxiety and depression (Chronic) HLD (hyperlipidemia) (Chronic) UTI (urinary tract infection) due to urinary indwelling catheter (Chronic) Chronic gram negative bacteria Debility (Chronic) Depression (Chronic) VITA (obstructive sleep apnea) (Chronic) Candidal intertrigo (Chronic) Medical History: Medical History (Last Reviewed 08/08/20 @ 10:[address] 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 Severe sepsis (Resolved) A41.9, R65.20 V tach (Resolved) I47.2 VITA (obstructive sleep apnea) (Chronic) G47.33 Candidal intertrigo (Chronic) B37.2 Debility R53.81 DM2 (diabetes mellitus, type 2) E11.9 Essential hypertension I10 VITA (obstructive sleep apnea) G47.33 Allergies adhesive tape Allergy (Verified 08/07/20 15:42) blisters Influenza Virus Vaccines Allergy (Verified 08/07/20 15:42) shortness of breath/severe wheezing iron Allergy (Verified 08/07/20 15:42) from IV form chest pressure and heart palpitations Sulfa (Sulfonamide Antibiotics) Allergy (Verified 08/07/20 15:42) Shortness of breath bactrim does not work for her-per pcp paperwork meloxicam [From Mobic] Adverse Reaction (Verified 08/07/20 15:42) gi upset seasonal allergies Allergy (Uncoded 08/07/20 15:42) Other Home Medications: Ambulatory Orders Medication Instructions Recorded Furosemide [Lasix] 20 mg PO BID 09/30/13 Albuterol Inhaler [Ventolin Hfa] 2 puff INHALATION Q4H PRN PRN 10/30/18 Gabapentin [Neurontin] 600 mg PO BID 10/30/18 Nystatin Powder [Mycostatin Powder] 1 applicatio TOPICAL BID PRN PRN 10/30/18 Oxybutynin Chloride [Ditropan Xl] 15 mg PO DAILY 10/30/18 metFORMIN HCl [Glucophage] 500 mg PO BID 10/30/18 Cyanocobalamin (Vitamin B-12) 1,000 mcg PO DAILY 12/17/18 [B-12] Pravastatin [Pravachol] 20 mg PO QHS 12/17/18 Duloxetine HCl 60 mg PO QHS 03/22/19 Methenamine Hippurate [Hiprex] 1 gm PO BID 04/05/19 Fluconazole 200 mg PO SA 07/02/19 Hydrocodone Bitart/Apap 5-325 1 tab PO Q6H PRN PRN 07/02/19 [[place] 5/325] Venlafaxine XR [Effexor Xr] 150 mg PO BID 07/02/19 Ascorbic Acid [Vitamin C] 500 mg PO BID 08/18/19 DiphenhydrAMINE [Benadryl] 20 mg PO BID PRN PRN 08/18/19 Pantoprazole Sodium [Protonix] 40 mg PO DAILY 08/18/19 Potassium Chloride [K-Dur] 10 meq PO DAILYCM 08/18/19 C,E,Zinc,Copper 11/Jtrhx3b/Lut 1 ea PO TID 10/19/19 [Eye Health Adult 50 Plus Sftgl] Cholecalciferol (VIT D3) [Vitamin 1,000 unit PO DAILY 10/19/19 D3] L.acidoph,Paracasei, B.lactis 1 ea PO DAILY PRN PRN 10/19/19 [Probiotic] Ranitidine [Zantac] 150 mg PO DAILY PRN PRN 10/19/19 Aspirin [Aspirin, Baby] 81 mg PO DAILY [facility] [place] 12/06/19 Baclofen 20 mg PO DINNER 03/20/20 Baclofen [Lioresal] 10 mg PO BID 03/20/20 Citric AC/Gluconolact/Mag Carb 30 ml IR TID 08/07/20 [Renacidin Irrigation Solution] Famotidine 20 mg PO QHS 08/07/20 Lisinopril [Prinivil] 10 mg PO DAILY 08/07/20 Metoprolol Tartrate 25 mg PO BID 08/07/20 Surgical History: Surgical History (Last Reviewed 08/08/20 @ 10:[address] Jose Yu MD) H/O: hysterectomy Z90.710 Same time as open gallbladder History of cholecystectomy Z90.49 Open, same time as hysterectomy History of tonsillectomy Z90.89 Hx of appendectomy Z90.49 Surgical History: cholecystectomy, hysterectomy, - - Suprapubic catheter placement. 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 Lives: With Family Smoking Status: Never smoker Alcohol: None Drugs: None - *Family History Maternal History Items: Diabetes, Heart Disease - Her father had a CABG and CHF Paternal History Items: Heart Disease Review of Systems Constitutional: Denies: Chills, Fever, Weight Change Cardiovascular: Denies: Chest Pain, Chest Pressure, Chest Tightness, Palpitations Respiratory: Denies: Cough, Hemoptysis, Shortness of breath at rest, Shortness of breath upon exertion, Wheezing Gastrointestinal: Denies: Abdominal Pain, Constipation, Diarrhea, Hematemesis, Nausea, Melena, Vomiting Patient Problems: Active and Suspected Problems (Last Updated 11/04/19 @ 10:19 by Nia Beyer) Anemia (Acute) MICHAELLE (acute kidney injury) (Acute) - Physical Exam Vitals/I&O's: Vital Signs Temp Pulse Resp BP Pulse Ox 98.4 F 93 18 106/48 L 94 08/08/20 04:04 08/08/20 08:48 08/08/20 04:04 08/08/20 05:57 08/08/20 07:11 Oxygen Delivery Method Room Air Weight: 308 lb 6.827 oz Body Mass Index (BMI) 48.3 Intake and Output for Last 24 Hours 08/06/20 08/07/20 08/08/20 23:59 23:59 23:59 Intake Total 1162.48 / 1162.48 1800 / 1800 Output Total 2049 / 2049 600 / 600 Balance -887.52 / -887.52 1200 / 1200 General: Alert, Oriented x3 Lungs: Clear to auscultation Cardiovascular: Regular rate, Regular Rhythm, No murmurs Abdomen: Bowel Sounds Present, Soft, Non Tender, Non-Distended, Obese Microbiology Past 72 Hours 08/07/20 17:35 Stool Stool Occult Blood (WENDI) - Final Occult Blood Positive Laboratory Results 08/07/20 16:43: WBC 9.6, RBC 3.04 L, Hgb 7.7 L, Hct 26.0 L, MCV 85.5, MCH 25.3 L , MCHC 29.6 L, RDW Std Deviation 53.9 H, RDW Coeff of Jessi 17.3 H, Plt Count 398, MPV 8.9, Immature Gran % (Auto) 1.100 H, Neut % (Auto) 77.8 H, Lymph % (Auto) 9.6 L, Cochran % (Auto) 9.4, Eos % (Auto) 1.8, Baso % (Auto) 0.3, Absolute Neuts (auto) 7.5, Absolute Lymphs (auto) 0.92, Nucleated RBC % 0 08/07/20 16:43: Sodium 134 L, Potassium 4.8, Chloride 106, Carbon Dioxide 19.0 L , Anion Gap 9, BUN 41 H, Creatinine 2.12 H, Estim Creat Clear Calc 22.98, Est GFR (MDRD) Af Amer 29 L, Est GFR (MDRD) Non-Af 24 L, BUN/Creatinine Ratio 19.3, Glucose 119 H, Calcium 9.0, Magnesium Pending 08/07/20 16:43: Iron 24 L, TIBC 338, Iron Saturation 7.1 L, Ferritin 91 08/07/20 17:24: Urine Color Gloria, Urine Clarity Turbid, Urine pH 7.0, Ur Specific Aztec 1.010, Urine Protein 500 H, Urine Glucose (UA) Normal, Urine Ketones 5 H, Urine Occult Blood 250 H, Urine Nitrite Negative, Urine Bilirubin Negative, Urine Urobilinogen Normal, Ur Leukocyte Esterase 500 H, Urine RBC 0 SEEN, Urine WBC >100 SEEN, Ur Squamous Epith Cells 0 SEEN, Urine Bacteria 0 SEEN, Urine Mucus 0 SEEN 08/07/20 22:16: POC Glucose 102 08/08/20 06:21: WBC 7.1, RBC 2.83 L, Hgb 6.9 L, Hct 23.9 L, MCV 84.5, MCH 24.4 L , MCHC 28.9 L, RDW Std Deviation 54.1 H, RDW Coeff of Jessi 17.3 H, Plt Count 354, MPV 8.8, Immature Gran % (Auto) 1.400 H, Neut % (Auto) 72.0 H, Lymph % (Auto) 12.6 L, Cochran % (Auto) 11.2 H, Eos % (Auto) 2.4, Baso % (Auto) 0.4, Absolute Neuts (auto) 5.1, Absolute Lymphs (auto) 0.90, Nucleated RBC % 0 08/08/20 06:21: Sodium 136, Potassium 4.5, Chloride 109 H, Carbon Dioxide 23.0, Anion Gap 4 L, BUN 38 H, Creatinine 1.80 H, Estim Creat Clear Calc 27.07, Est G FR (MDRD) Af Amer 35 L, Est GFR (MDRD) Non-Af 29 L, BUN/Creatinine Ratio 21.1 H, Glucose 111 H, Calcium 8.4 L 08/08/20 06:21: Magnesium 2.0 08/08/20 06:35: POC Glucose 111 H 08/08/20 08:02: Blood Type A POSITIVE, Antibody Screen NEGATIVE, Crossmatch See Detail 08/08/20 08:02: Hgb 7.0 L, Hct 23.7 L Current Medications Hydrocodone Bitart/Acetaminophen ([place] 5mg-325mg) 1 tablet PO Q6H PRN PRN PRN Reason: Pain Score 1-10/10 Ascorbic Acid (Vitamin C) 500 mg PO BIDCM [facility] Last Admin: 08/08/20 08:48 Dose: 500 mg Documented by: Baclofen (Lioresal) 20 mg PO DINNER [facility] Baclofen (Lioresal) 10 mg PO BID [facility] Last Admin: 08/08/20 08:47 Dose: 10 mg Documented by: Calamine/Phenol (Calmoseptine Ointment) 1 applic TOPICAL 4X/DAY [facility]; Protocol Last Admin: 08/08/20 08:48 Dose: 1 applicatio Documented by: Duloxetine HCl (Cymbalta) 60 mg PO QHS [facility] Fluconazole (Diflucan) 200 mg PO Sa@1000 [facility] Last Admin: 08/08/20 08:49 Dose: 200 mg Documented by: Furosemide (Lasix) 40 mg IV X1 [facility] Stop: 08/08/20 23:59 Gabapentin (Neurontin) 600 mg PO BID [facility] Last Admin: 08/08/20 08:49 Dose: 600 mg Documented by: Ceftriaxone Sodium (Rocephin) 1 gm in 50 mls @ 100 mls/hr IV Q24 [facility] Stop: 08/15/20 10:01 Last Admin: 08/08/20 09:19 Dose: 100 mls/hr Documented by: Sodium Chloride () 1,000 mls @ 100 mls/hr IV .Q10H [facility] Stop: 08/08/20 17:34 Last Infusion: 08/08/20 09:23 Dose: 0 mls/hr Documented by: Pantoprazole Sodium 40 mg/ (Sodium Chloride) 110 mls @ 330 mls/hr IV Q12 [facility] Insulin Human Lispro (Humalog Kwikpen (Bkc)) 0 unit SC ACHS [facility]; Protocol Last Admin: 08/08/20 06:35 Dose: Not Given Documented by: Methenamine Hippurate (Hiprex) 1 gm PO BID [facility] Last Admin: 08/08/20 08:48 Dose: 1 gm Documented by: Metoprolol Tartrate (Lopressor (Beta Genaro)) 25 mg PO BID [facility] Last Admin: 08/08/20 08:48 Dose: 25 mg Documented by: Nitroglycerin (Nitrostat) 0.4 mg SUBLINGUAL Q5M PRN PRN Reason: CARDIAC/CHEST PAIN Nutritional Formula (Lactose Free) (Glucerna Shake) 120 ml PO 4X/DAY [facility] Last Admin: 08/08/20 08:46 Dose: Not Given Documented by: Nystatin (Mycostatin Powder) 1 applic TOPICAL BID [facility]; Protocol Last Admin: 08/08/20 08:47 Dose: 1 applicatio Documented by: Ondansetron HCl (Zofran) 4 mg IV Q8H PRN PRN PRN Reason: NAUSEA/VOMITING Potassium Ch[facility] ([facility]Dur) [facility] Last Admin: 08/08/20 08:47 Dose: 10 meq Documented by: Pravastatin Sodium (Pravachol) 20 mg PO QHS [facility] Sodium Chloride () 10 - 40 ml IV UD PRN PRN Reason: SALINE FLUSH Tolterodine Tartrate (Detrol La) 4 mg PO DAILY [facility] Last Admin: 08/08/20 08:47 Dose: 4 mg Documented by: Venlafaxine HCl (Effexor Xr) 150 mg PO BID [facility] Last Admin: 08/08/20 08:47 Dose: 150 mg Documented by: Assessment/Plan All Active Problems (Last Updated 11/04/19 @ 10:19 by Nia Beyer) Anemia (Acute) Severe sepsis (Resolved) Cellulitis of left abdominal wall (Resolved) Severe sepsis (Resolved) V tach (Resolved) MICHAELLE (acute kidney injury) (Acute) Suprapubic catheter dysfunction (Resolved) Plan will be to perform an upper and lower endoscopy on her on Monday. This is provided her kidney function improves tomorrow as well as a diet today. We will do a bowel prep tomorrow. Procedure Criteria Procedure Type: Elective COVID Risk Discussion: The surgeon/proceduralist and patient have discussed in detail the risk of exposure to and/or potential harm posed by the COVID-19 virus with having a surgery/procedure at this time versus the risk of delaying the surgery/procedure. It is not possible to know either the risk of delaying the surgery or procedure or chance of getting an infection with perfect accuracy, but a joint decision was made between the patient and the surgeon/proceduralist to proceed at this time with the scheduled surgery/procedure as indicated on the consent form. Office Visits / Consults: [id number] IP Consult L3
[2020-08-08 11:36] LABS: Bedside Glucose 115 mg/dL (70-110)
--- NOTE | 2020-08-08 11:46 | CPS ---
Talked with patient about CPAP/BIPAP that ordered. She has not had a machine since [facility] closed its doors. She has been wearing O2 @2lpm @[facility]. At this time, that is all she wants. I emphasized that she could wear an Autopap machine of the [facility] but she is not interested. I also emphasized the importance of having a new sleep study and the possible complications that can arise if she does not do this. Placed a nc on O2 @2lpm near her for her use when she sleeps.
--- NOTE | 2020-08-08 12:50 | CASEMGMT ---
SOCIAL WORK Reason for Consult: Discharge Planning Met with patient and patient's sister/HPOA, Esperanza Felder in room. Introduced role and reason for referral. Patient open to speaking with this worker with sister present. Patient reports lives home alone. Patient states is wheelchair bound and has ramps everywhere I need to get to. Patient has caregivers, Xiomara and Sharonda who assist patient. Patient reports DME includes, shower chair, grab bars and rails, jensen, hospital bed, trapeze, and power wheelchair. Patient denies any issues with transportation and states has a handicapped accessible van and sister or caregiver assists with taking patient to appointments. Patient reports has been to a [facility] in the past and has utilized [facility] care in the past. Discussed needs for home going. Patient in agreement with referral for home health care and requests referral to [facility] Home Health. Updated RN Dylan MARTINES on the above. Plan: Home with referral to [facility] Home Health. Lisa Ellsworth, [employer] HEL[employer], [employer]
[2020-08-08] MEDS: Ensure Clear 120 ML Liquid PO (14:01)
--- NOTE | 2020-08-08 15:20 | CASEMGMT ---
TONI MARTINES NOTE: Kacie GRIFFIN, informed this RN CM that pt would like HHC. RN CM to room to talk with pt. She confirms she would like HHC. Provided with list of local HHC agencies and she prefers [facility], stating she has had them in the past. Pt states she would like a nurse and PT, but does not want OT at this time. Call placed to [facility] Intake line and message left with referral. Message also states anticipate pt will most likely discharge home in a few days. Awaiting acceptance. Order for HHC has been placed for SN and PT. Sabina CHUA RN CM
[2020-08-08] MEDS: Furosemide 40 MG/4 ML Vial IV (16:15)
[2020-08-08] MEDS: 0.9% Saline Lock 10 ML Syringe IV ×2 (16:16→17:09)
[2020-08-08 16:26] LABS: Bedside Glucose 113 mg/dL (70-110)
[2020-08-08] MEDS: Baclofen 10 MG Tablet 20 MG PO (16:51)
[2020-08-08 16:59] LABS: Hematocrit 30.6 % (37-47); Hemoglobin 8.8 g/dL (12.0-15.0)
[2020-08-08] MEDS: Juven (unflavored) Packet 1 PACKET PO (17:01)
[2020-08-08 21:10] LABS: Hemoglobin 9.1 g/dL (12.0-15.0)
[2020-08-08] MEDS: DULoxetine Hcl 60 MG Capsule PO (22:00)
[2020-08-08] MEDS: Pravastatin 20 MG Tablet PO (22:01)
[2020-08-08 22:11] LABS: Bedside Glucose 92 mg/dL (70-110)
[2020-08-08] MEDS: HYDROcodone Bitartrate/Apap 5/325 Tablet PO (23:57)
[2020-08-09] VITALS (13 sets, daily range): BP systolic 117–136; BP diastolic 49–64; PULSE 74–92; RESP 16–18; TEMP 36.6–36.8; O2SAT 96–100
[2020-08-09 05:53] LABS: Absolute Lymphocyte Count 0.92 X10^3/uL (0.83-4.51); Absolute Neutrophil Count 4.7 X10^3/uL (2.0-7.7); Basophil# 0.05 X10^3/uL; Basophil% 0.7 % (0-1); Eosinophil# 0.24 X10^3/uL; Eosinophils% 3.5 % (0-5); Hematocrit 30.2 % (37-47); Lymphocyte # 0.92 X10^3/ul (4.0); Lymphocyte % 13.4 % (19-41); Mean Corp Hgb Conc 29.8 g/dL (32-36); Mean Corpuscular Hgb 25.8 pg (27.0-32.0); Mean Corpuscular Volume 86.5 fL (81-99); Mean Platelet Vol. 8.5 fl (6.2-12.0); Monocyte# 0.81 X10^3/uL; Monocyte% 11.8 % (0-10); NRBC Flagged by Analyzer 0 % (0-5); Neutrophil # 4.69 X10^3/uL (2.7-7.7); Neutrophil % 68.6 % (47-70); Platelet Count 345 K/mm3 (150-450); RBC Distribution Width CV 16.9 % (11.6-14.6); RBC Distribution Width SD 52.2 fl (35.1-43.9); Red Blood Count 3.49 M/mm3 (4.2-5.4); White Blood Count 6.9 K/mm3 (4.4-11.0)
[2020-08-09 06:10] LABS: ALB/GLOB Ratio 0.3 RATIO (0.9-2.4); AST(SGOT) 4 U/L (15-37); Alanine Aminotransfer ALT/SGPT 10 U/L (13-56); Albumin, Serum 1.9 g/dL (3.2-5.0); Alkaline Phosphatase 61 U/L (45-117); Anion Gap 6 (5-15); BUN 36 mg/dL (7-18); BUN/Creat Ratio 21.2 RATIO (10-20); Calcium,Total 8.6 mg/dL (8.5-10.1); Chloride 108 mmol/L (98-107); EST Glomerular Filtration Rate 31 mL/min (>60); Est Glom Filt Rate - Afr Amer 38 mL/min (>60); Estimated Creatinine Clearance 28.66 ml/min; Glucose 119 mg/dL (74-106); Potassium 4.2 mmol/L (3.5-5.1); Protein, Total 7.9 g/dL (6.4-8.2); Sodium Level 137 mmol/L (136-145)
[2020-08-09 06:41] LABS: Bedside Glucose 111 mg/dL (70-110)
--- NOTE | 2020-08-09 07:46 | PCM.PN.HOSP ---
Patient Problems: Active and Suspected Problems (Last Reviewed 08/08/20 @ 10:[address] Jose Yu MD) Anemia (Acute) MICHAELLE (acute kidney injury) (Acute) Subjective: Patient overnight with no acute events per self per nursing report. Urine appearance less dark in regards to hematuria than evening prior. Patient with no bowel movements noted to be bloody. Patient notes some mild abdominal cramping but this was transient over the evening. Patient evaluation per surgery this morning with decision to defer prep secondary to still increased creatinine from baseline with encouraged oral intake and resumption of IV fluids which patient is amenable. Patient denies fevers, chills, nausea, emesis, abdominal pain, chest pain or dyspnea. Objective: Physical Examination: General: awake, alert, oriented x 3 and cooperative, seated upright in MS bed in no apparent distress. Skin: normal color, turgor, no icterus, cyanosis except stasis disease and posterior lower back and coccyx irritation, decub, unclear stage, evidence intertrigo. HEENT: AT/NC, EOMI, PERRLA, improved MMM. Lungs: Breath sounds distant, CTA, moderate effort, no obvious evidence rales, rhonchi or wheezing. Heart: Regular rate and rhythm; no gallop, rub audible. Abdomen: soft, morbidly obese, no evidence of abdominal discomfort this time including suprapubic region, distant normal bowel sounds, unable to discern distention given habitus, suprapubic catheter present. Extremities: no cyanosis, clubbing, bilateral lower extremity edema, improving. Neurological: patient awake, alert, oriented x 3; cognitive function intact; pupils equally reactive to light and accomodation; cranial nerves II-XII grossly normal, moving all 4 extremities, but significantly reduced with functional paraplegia, uses a wheelchair chronically, strength moderately to severely global decreased. Psychiatric: affect appears normal, no acute evidence of depressive or anxiety feelings. Vitals/I&O's: Vital Signs Temp Pulse Resp BP Pulse Ox 98 F 85 18 117/49 L 96 08/09/20 04:04 08/09/20 07:26 08/09/20 04:04 08/09/20 04:04 08/09/20 07:09 Oxygen Flow Rate (L/min) 2 Oxygen Delivery Method Nasal Cannula Weight: 308 lb 6.827 oz Body Mass Index (BMI) 48.3 Intake and Output for Last 24 Hours 08/07/20 08/08/20 08/09/20 23:59 23:59 23:59 Intake Total 1162.48 / 1162.48 3666.67 / 4066.67 1748.33 / 1748.33 Output Total 2049 / 2049 4950 / 6800 3200 / 3200 Balance -887.52 / -887.52 -1283.33 / -2733.33 -1451.67 / -1451.67 Microbiology Past 72 Hours 08/07/20 17:24 Urine, Clean Catch Urine Culture - Preliminary Gram negative odin Gram negative odin#2 08/07/20 17:35 Stool Stool Occult Blood (WENDI) - Final Occult Blood Positive Laboratory Results 08/07/20 16:43: Magnesium TNP 08/08/20 06:21: Magnesium 2.0 08/08/20 08:02: Blood Type A POSITIVE, Antibody Screen NEGATIVE, Crossmatch See Detail 08/08/20 08:02: Hgb 7.0 L, Hct 23.7 L 08/08/20 11:21: POC Glucose 115 H 08/08/20 15:51: Hgb 8.8 L, Hct 30.6 L 08/08/20 16:18: POC Glucose 113 H 08/08/20 21:00: Hgb 9.1 L, Hct 30.0 L 08/08/20 21:58: POC Glucose 92 08/09/20 05:50: WBC 6.9, RBC 3.49 L, Hgb 9.0 L, Hct 30.2 L, MCV 86.5, MCH 25.8 L, MCHC 29.8 L, RDW Std Deviation 52.2 H, RDW Coeff of Jessi 16.9 H, Plt Count 345, MPV 8.5, Immature Gran % (Auto) 2.000 H, Neut % (Auto) 68.6, Lymph % (Auto) 13.4 L, [place] % (Auto) 11.8 H, Eos % (Auto) 3.5, Baso % (Auto) 0.7, Absolute Neuts (auto) 4.7, Absolute Lymphs (auto) 0.92, Nucleated RBC % 0 08/09/20 05:50: Sodium 137, Potassium 4.2, Chloride 108 H, Carbon Dioxide 23.0, Anion Gap 6, BUN 36 H, Creatinine 1.70 H, Estim Creat Clear Calc 28.66, Est GFR (MDRD) Af Amer 38 L, Est GFR (MDRD) Non-Af 31 L, BUN/Creatinine Ratio 21.2 H, Glucose 119 H, Calcium 8.6, Total Bilirubin 0.30, AST 4 L, ALT 10 L, Alkaline Phosphatase 61, Total Protein 7.9, Albumin 1.9 L, Globulin 6.0 H, Albumin/Globulin Ratio 0.3 L 08/09/20 06:29: POC Glucose 111 H Current Medications Hydrocodone Bitart/Acetaminophen ([place] 5mg-325mg) 1 tablet PO Q6H PRN PRN PRN Reason: Pain Score 1-08/22 Last Admin: 08/08/20 23:57 Dose: 1 tablet Documented by: Ascorbic Acid (Vitamin C) 500 mg PO BIDCM [facility] Last Admin: 08/08/20 16:52 Dose: 500 mg Documented by: Baclofen (Lioresal) 20 mg PO DINNER [facility] Last Admin: 08/08/20 16:51 Dose: 20 mg Documented by: Baclofen (Lioresal) 10 mg PO BID [facility] Last Admin: 08/08/20 22:01 Dose: 10 mg Documented by: Calamine/Phenol (Calmoseptine Ointment) 1 applic TOPICAL 4X/DAY [facility]; Protocol Last Admin: 08/08/20 21:59 Dose: 1 applicatio Documented by: Duloxetine HCl (Cymbalta) 60 mg PO QHS [facility] Last Admin: 08/08/20 22:00 Dose: 60 mg Documented by: Fluconazole (Diflucan) 200 mg PO Sa@1000 [facility] Last Admin: 08/08/20 08:49 Dose: 200 mg Documented by: Gabapentin (Neurontin) 600 mg PO BID [facility] Last Admin: 08/08/20 22:01 Dose: 600 mg Documented by: Ceftriaxone Sodium (Rocephin) 1 gm in 50 mls @ 100 mls/hr IV Q24 [facility] Stop: 08/15/20 10:01 Last Infusion: 08/08/20 09:49 Dose: Infused Documented by: Pantoprazole Sodium 40 mg/ (Sodium Chloride) 110 mls @ 330 mls/hr IV Q12 [facility] Last Infusion: 08/08/20 22:31 Dose: Infused Documented by: Insulin Human Lispro (Humalog Kwikpen (Bkc)) 0 unit SC ACHS [facility]; Protocol Last Admin: 08/09/20 06:30 Dose: Not Given Documented by: L-Arginine/L-Glutamine/Calcium HMB ([place] Packet) [facility] Last Admin: 08/08/20 17:01 Dose: 1 packet Documented by: Methenamine Hippurate (Hiprex) 1 gm PO BID [facility] Last Admin: 08/08/20 22:00 Dose: 1 gm Documented by: Metoprolol Tartrate (Lopressor (Beta Genaro)) 25 mg PO BID [facility] Last Admin: 08/08/20 22:04 Dose: 25 mg Documented by: Nitroglycerin (Nitrostat) 0.4 mg SUBLINGUAL Q5M PRN PRN Reason: CARDIAC/CHEST PAIN Nutritional Formula (Lactose Free) (Ensure Clear) 120 ml PO TIDCM [facility] Last Admin: 08/08/20 16:52 Dose: Not Given Documented by: Nystatin (Mycostatin Powder) 1 applic TOPICAL BID [facility]; Protocol Last Admin: 08/08/20 22:01 Dose: 1 applicatio Documented by: Ondansetron HCl (Zofran) 4 mg IV Q8H PRN PRN PRN Reason: NAUSEA/VOMITING Potassium Chloride (K-Dur) [facility] Last Admin: 08/08/20 08:47 Dose: 10 meq Documented by: Pravastatin Sodium (Pravachol) 20 mg PO QHS [facility] Last Admin: 08/08/20 22:01 Dose: 20 mg Documented by: Sodium Chloride () 10 - 40 ml IV UD PRN PRN Reason: SALINE FLUSH Last Admin: 08/08/20 17:09 Dose: 10 ml Documented by: Tolterodine Tartrate (Detrol La) 4 mg PO DAILY [facility] Last Admin: 08/08/20 08:47 Dose: 4 mg Documented by: Venlafaxine HCl (Effexor Xr) 150 mg PO BID [facility] Last Admin: 08/08/20 22:00 Dose: 150 mg Documented by: STROKE Vital Signs/Narrative: Vital Signs Temp Pulse Resp BP Pulse Ox 08/09/20 07:26 85 08/09/20 07:09 96 08/09/20 04:04 98 F 77 18 117/49 L 99 08/09/20 04:01 83 Medical Necessity - Tobacco Use Smoking Status: Never smoker Assessment/Plan All Active Problems (Last Reviewed 08/08/20 @ 10:[address] Jose Yu MD) Anemia (Acute) Severe sepsis (Resolved) Cellulitis of left abdominal wall (Resolved) Severe sepsis (Resolved) V tach (Resolved) MICHAELLE (acute kidney injury) (Acute) Suprapubic catheter dysfunction (Resolved) The patient is a 74 y/o F w/ PMHx: HTN, HLD, Depression and Anxiety, Coccygeal stage III decub, Neurogenic bladder with Chronic indwelling catheter (suprapubic), Diabetes mellitus type II, CKD stage III, GERD, Functional paraplegia chronically wheelchair bound, Morbid obesity, ? PAF who presents to the [facility] ED on 08/07/20 secondary to increasing malaise, fatigue, concern for foul smelling turbid appearing urine. 1. Malaise, Fatigue, Weakness, Multifactorial, including Acute complicated urinary tract infection with suprapubic catheter and #2, #3: Work-up in the ED included T 98.4, heart rate 93, BP 160/104, respiratory rate 18, 94% on room air, CBC with WC 9.6, hemoglobin 7.9, platelet 398 with minimal left shift, BMP with sodium 134, carbon oxide 19, BUN/creatinine 41/2.12, glucose 119, urinalysis with urine appearing turbid, occult blood 250, ketone 5, negative nitrite, 500 leukocyte esterase, greater than 100 WBCs, no urine bacteria, stool guaiac positive, urine culture pending per ED. Recently changed per her the urologist on Monday prior to current presentation.patient mid to medical surgical floor, continued on IV Rocephin, Urine culture with preliminarily gram-negative odin x2 both 50,000-80,000 colony-forming units, awaiting speciation and specificity, continue judicious hydration especially given deferred bowel prep 08/09/20 start secondary to still increased Cr from baseline. PT/OT consultations for discharge planning. 2. Acute GI Bleed w/ resultant Acute on Chronic secondary to Acute Blood Loss Anemia: Patient with no knowledge to possible GI bleed, admission hemoglobin 7.7, guaiac obtained and positive, hemoglobin did decrease to 6.9, 08/08/20 administered 2 unit PRBC administration, general surgery consulted and noted plan for endoscopy on Monday with prep on 08/09/2020; however, given Cr 1.7 08/09/20, surgery planned prep Monday with possible endoscopy Monday. Maintain on IV PPI, diet discretion per General Surgery. 3. Acute kidney injury: Secondary to acute presentation #1 and #2 is noted, improving suspected hypovolemic component. Admission BUN/Cr 41/2.12, prior baseline creatinine noted to be 1.4-1.6 more commonly, most recently 10/22/2019 1.07 but not uncommon to be 1.3-1.4 primarily, continued on hydration, repeat 08/08/2020 BUN/creatinine 38/1.80-->08/09/20 BUN/Cr 36/1.70, slowly improving, but per Surgery deferred bowel prep with continued IVFs and if renal function further improved on Monday would plan start of bowel prep at that time. Will continue to hold nephrotoxic medications. 4. Functional paraplegia, wheelchair-bound: We will continue patient home baclofen, Ditropan regimen, recent suprapubic catheter change, treating #1 is noted, continue positional changes, fall precautions, PT OT assessments, case management/social work aware of patient presentation with home assessment needs ongoing, wound care consultation for skin changes/decub coccyx. 5. Diabetes mellitus type II: Hold oral home regimen, currently clears, ADA diet once appropriate per general surgery discretion, accu checks w/ ISS. 6. Morbid Obesity: Weight loss and lifestyle changes encouraged, nutrition consulted, changing to an alternate bed for patient benefit. 7. GERD: We will maintain on IV Protonix. Patient per currently stays on several agents including Protonix, ranitidine, famotidine. She notes she is no longer taking all of these and only on Protonix. She notes that she was having some issues with reflux previously. 8. Hypertension: Continue home regimen including metoprolol with hold parameters, holding nephrotoxic regimen, add back once appropriate, IV Lasix x 1 in between PRBC especially given MICHAELLE, closely monitor for any overload onset. 9. Hyperlipidemia: Continue home statin regimen. 10. Anxiety and depression: We will continue patient home venlafaxine regimen. 11. VITA: We will initiate CPAP nightly. 12. DVT prophylaxis: SCDs, defer chemoprophylaxis given acute presentation as noted #2. 13. CODE STATUS: Full. Inpatient E&M: 05233 Subs Hosp L2
--- NOTE | 2020-08-09 08:45 | PN.SURG_ITS ---
Patient Problems: Active and Suspected Problems (Last Reviewed 08/08/20 @ 10:[address] Jose Yu MD) Anemia (Acute) MICHAELLE (acute kidney injury) (Acute) Subjective: No complaints this morning. Objective: Abdomen is obese and soft - Physical Exam Vitals/I&O's: Vital Signs Temp Pulse Resp BP Pulse Ox 98 F 85 18 117/49 L 96 08/09/20 04:04 08/09/20 07:26 08/09/20 04:04 08/09/20 04:04 08/09/20 07:09 Oxygen Flow Rate (L/min) 2 Oxygen Delivery Method Nasal Cannula Weight: 308 lb 6.827 oz Body Mass Index (BMI) 48.3 Intake and Output for Last 24 Hours 08/07/20 08/08/20 08/09/20 23:59 23:59 23:59 Intake Total 1162.48 / 1162.48 3666.67 / 4066.67 1748.33 / 1748.33 Output Total 2049 / 2049 4950 / 6800 3200 / 3200 Balance -887.52 / -887.52 -1283.33 / -2733.33 -1451.67 / -1451.67 Microbiology Past 72 Hours 08/07/20 17:24 Urine, Clean Catch Urine Culture - Preliminary Gram negative odin Gram negative odin#2 08/07/20 17:35 Stool Stool Occult Blood (WENDI) - Final Occult Blood Positive Laboratory Results 08/07/20 16:43: Magnesium TNP 08/08/20 08:02: Blood Type A POSITIVE, Antibody Screen NEGATIVE, Crossmatch See Detail 08/08/20 11:21: POC Glucose 115 H 08/08/20 15:51: Hgb 8.8 L, Hct 30.6 L 08/08/20 16:18: POC Glucose 113 H 08/08/20 21:00: Hgb 9.1 L, Hct 30.0 L 08/08/20 21:58: POC Glucose 92 08/09/20 05:50: WBC 6.9, RBC 3.49 L, Hgb 9.0 L, Hct 30.2 L, MCV 86.5, MCH 25.8 L , MCHC 29.8 L, RDW Std Deviation 52.2 H, RDW Coeff of Jessi 16.9 H, Plt Count 345, MPV 8.5, Immature Gran % (Auto) 2.000 H, Neut % (Auto) 68.6, Lymph % (Auto) 13.4 L, [place] % (Auto) 11.8 H, Eos % (Auto) 3.5, Baso % (Auto) 0.7, Absolute Neuts (auto) 4.7, Absolute Lymphs (auto) 0.92, Nucleated RBC % 0 08/09/20 05:50: Sodium 137, Potassium 4.2, Chloride 108 H, Carbon Dioxide 23.0, Anion Gap 6, BUN 36 H, Creatinine 1.70 H, Estim Creat Clear Calc 28.66, Est GFR (MDRD) Af Amer 38 L, Est GFR (MDRD) Non-Af 31 L, BUN/Creatinine Ratio 21.2 H, Glucose 119 H, Calcium 8.6, Total Bilirubin 0.30, AST 4 L, ALT 10 L, Alkaline Phosphatase 61, Total Protein 7.9, Albumin 1.9 L, Globulin 6.0 H, Albumin/Globulin Ratio 0.3 L 08/09/20 06:29: POC Glucose 111 H Current Medications Hydrocodone Bitart/Acetaminophen ([place] 5mg-325mg) 1 tablet PO Q6H PRN PRN PRN Reason: Pain Score 1-10/10 Last Admin: 08/08/20 23:57 Dose: 1 tablet Documented by: Ascorbic [facility] ([facility]itamin C) [facility] Last Admin: 08/08/20 16:52 Dose: 500 mg Documented by: Baclofen (Lioresal) 20 mg PO DINNER [facility] Last Admin: 08/08/20 16:51 Dose: 20 mg Documented by: Baclofen (Lioresal) 10 mg PO BID [facility] Last Admin: 08/08/20 22:01 Dose: 10 mg Documented by: Calamine/Phenol (Calmoseptine Ointment) 1 applic TOPICAL 4X/DAY [facility]; Protocol Last Admin: 08/08/20 21:59 Dose: 1 applicatio Documented by: Duloxetine HCl (Cymbalta) 60 mg PO QHS [facility] Last Admin: 08/08/20 22:00 Dose: 60 mg Documented by: Fluconazole (Diflucan) 200 mg PO Sa@1000 [facility] Last Admin: 08/08/20 08:49 Dose: 200 mg Documented by: Gabapentin (Neurontin) 600 mg PO BID [facility] Last Admin: 08/08/20 22:01 Dose: 600 mg Documented by: Ceftriaxone Sodium (Rocephin) 1 gm in 50 mls @ 100 mls/hr IV Q24 [facility] Stop: 08/15/20 10:01 Last Infusion: 08/08/20 09:49 Dose: Infused Documented by: Pantoprazole Sodium 40 mg/ (Sodium Chloride) 110 mls @ 330 mls/hr IV Q12 [facility] Last Infusion: 08/08/20 22:31 Dose: Infused Documented by: Sodium Chloride () 250 mls @ 15 mls/hr IV .[id number] PRN PRN Reason: Additional IVPB Infusion Insulin Human Lispro (Humalog Kwikpen (Bkc)) 0 unit SC [facility]; Protocol Last Admin: 08/09/20 06:30 Dose: Not Given Documented by: L-Arginine/L-Glutamine/Calcium HMB (John Packet) [facility] Last Admin: 08/08/20 17:01 Dose: 1 packet Documented by: Methenamine Hippurate (Hiprex) 1 gm PO BID [facility] Last Admin: 08/08/20 22:00 Dose: 1 gm Documented by: Metoprolol Tartrate (Lopressor (Beta Genaro)) 25 mg PO BID [facility] Last Admin: 08/08/20 22:04 Dose: 25 mg Documented by: Nitroglycerin (Nitrostat) 0.4 mg SUBLINGUAL Q5M PRN PRN Reason: CARDIAC/CHEST PAIN Nutritional Formula (Lactose Free) (Ensure Clear) 120 ml PO TIDCM [facility] Last Admin: 08/08/20 16:52 Dose: Not Given Documented by: Nystatin (Mycostatin Powder) 1 applic TOPICAL BID [facility]; Protocol Last Admin: 08/08/20 22:01 Dose: 1 applicatio Documented by: Ondansetron HCl (Zofran) 4 mg IV Q8H PRN PRN PRN Reason: NAUSEA/VOMITING Potassium Chloride (K-Dur) 10 meq PO DAILYCM [facility] Last Admin: 08/08/20 08:47 Dose: 10 meq Documented by: Pravastatin Sodium (Pravachol) 20 mg PO QHS [facility] Last Admin: 08/08/20 22:01 Dose: 20 mg Documented by: Sodium Chloride () 10 - 40 ml IV UD PRN PRN Reason: SALINE FLUSH Last Admin: 08/08/20 17:09 Dose: 10 ml Documented by: Tolterodine Tartrate (Detrol La) 4 mg PO DAILY [facility] Last Admin: 08/08/20 08:47 Dose: 4 mg Documented by: Venlafaxine HCl (Effexor Xr) 150 mg PO BID [facility] Last Admin: 08/08/20 22:00 Dose: 150 mg Documented by: Medical Necessity - Tobacco Use Smoking Status: Never smoker Assessment/Plan All Active Problems (Last Reviewed 08/08/20 @ 10:[address] Jose Yu MD) Anemia (Acute) Severe sepsis (Resolved) Cellulitis of left abdominal wall (Resolved) Severe sepsis (Resolved) V tach (Resolved) MICHAELLE (acute kidney injury) (Acute) Suprapubic catheter dysfunction (Resolved) Would like to see her improvement in her renal function and I am not going to give her a bowel prep today. Plan will be to hopefully give her a bowel prep on Monday for an upper and lower endoscopy on Monday. Inpatient E&M: 75748 [facility] Hosp L2
[2020-08-09] MEDS: Methenamine Hippurate 1 GM Tablet PO ×2 (09:06→21:01)
[2020-08-09] MEDS: Tolterodine Tartrate 4 MG CAP.SA PO (09:06)
[2020-08-09] MEDS: Venlafaxine XR 150 MG Capsule PO ×2 (09:06→21:01)
[2020-08-09] MEDS: Gabapentin 600 MG Tablet PO ×2 (09:06→21:03)
[2020-08-09] MEDS: Baclofen 10 MG Tablet PO ×2 (09:06→21:01)
[2020-08-09] MEDS: Ascorbic Acid 500 MG Tablet PO ×2 (09:07→16:15)
[2020-08-09] MEDS: Juven (unflavored) Packet 1 PACKET PO ×2 (09:07→16:14)
[2020-08-09] MEDS: Metoprolol Tartrate 25 MG Tablet PO ×2 (09:08→21:02)
[2020-08-09] MEDS: Ensure Clear 120 ML Liquid PO ×3 (09:23→16:15)
[2020-08-09] MEDS: 0.9% Normal Saline 1,000 ML 75 ML IV ×2 (09:55→23:58)
[2020-08-09] MEDS: Ceftriaxone 1 GM/50 ML BAG IV (09:56)
[2020-08-09] MEDS: Menthol/Lanolin/Calamine/Znox 113 GM Tube 1 APPLIC TOPICAL ×3 (09:59→21:00)
[2020-08-09] MEDS: Nystatin Powder 15gm Bottle 1 APPLIC TOPICAL ×2 (09:59→21:02)
[2020-08-09] MEDS: HYDROcodone Bitartrate/Apap 5/325 Tablet PO (10:26)
[2020-08-09 12:00] LABS: Bedside Glucose 129 mg/dL (70-110)
[2020-08-09] MEDS: Baclofen 10 MG Tablet 20 MG PO (16:14)
[2020-08-09 17:00] LABS: Bedside Glucose 110 mg/dL (70-110)
[2020-08-09] MEDS: DULoxetine Hcl 60 MG Capsule PO (21:01)
[2020-08-09] MEDS: Pravastatin 20 MG Tablet PO (21:03)
[2020-08-09 22:35] LABS: Bedside Glucose 142 mg/dL (70-110)
[2020-08-10] VITALS (13 sets, daily range): BP systolic 117–147; BP diastolic 50–68; PULSE 76–105; RESP 18–20; TEMP 36.6–36.7; O2SAT 92–98
[2020-08-10 05:55] LABS: Absolute Lymphocyte Count 0.92 X10^3/uL (0.83-4.51); Absolute Neutrophil Count 7.1 X10^3/uL (2.0-7.7); Basophil# 0.04 X10^3/uL; Basophil% 0.4 % (0-1); Eosinophil# 0.17 X10^3/uL; Eosinophils% 1.8 % (0-5); Hematocrit 29.5 % (37-47); Hemoglobin 8.9 g/dL (12.0-15.0); Lymphocyte # 0.92 X10^3/ul (4.0); Mean Corp Hgb Conc 30.2 g/dL (32-36); Mean Corpuscular Hgb 25.9 pg (27.0-32.0); Mean Corpuscular Volume 85.8 fL (81-99); Mean Platelet Vol. 8.6 fl (6.2-12.0); Monocyte# 0.87 X10^3/uL; Monocyte% 9.4 % (0-10); NRBC Flagged by Analyzer 0 % (0-5); Neutrophil % 77.1 % (47-70); Platelet Count 380 K/mm3 (150-450); RBC Distribution Width CV 17.1 % (11.6-14.6); RBC Distribution Width SD 53.6 fl (35.1-43.9); Red Blood Count 3.44 M/mm3 (4.2-5.4); White Blood Count 9.2 K/mm3 (4.4-11.0)
[2020-08-10 06:30] LABS: ALB/GLOB Ratio 0.3 RATIO (0.9-2.4); AST(SGOT) 7 U/L (15-37); Alanine Aminotransfer ALT/SGPT 8 U/L (13-56); Albumin, Serum 1.8 g/dL (3.2-5.0); Alkaline Phosphatase 63 U/L (45-117); Anion Gap 7 (5-15); BUN 35 mg/dL (7-18); BUN/Creat Ratio 22.7 RATIO (10-20); Chloride 108 mmol/L (98-107); Creatinine, Serum 1.54 mg/dL (0.55-1.02); EST Glomerular Filtration Rate 35 mL/min (>60); Est Glom Filt Rate - Afr Amer 42 mL/min (>60); Estimated Creatinine Clearance 31.64 ml/min; Glucose 120 mg/dL (74-106); Potassium 3.9 mmol/L (3.5-5.1); Protein, Total 7.8 g/dL (6.4-8.2); Sodium Level 136 mmol/L (136-145)
[2020-08-10 06:31] LABS: Bedside Glucose 119 mg/dL (70-110)
[2020-08-10] MEDS: Gabapentin 600 MG Tablet PO ×2 (08:25→22:03)
[2020-08-10] MEDS: Juven (unflavored) Packet 1 PACKET PO ×2 (08:25→17:03)
[2020-08-10] MEDS: Venlafaxine XR 150 MG Capsule PO ×2 (08:26→22:04)
[2020-08-10] MEDS: Methenamine Hippurate 1 GM Tablet PO ×2 (08:26→22:04)
[2020-08-10] MEDS: Ascorbic Acid 500 MG Tablet PO ×2 (08:26→17:03)
[2020-08-10] MEDS: Baclofen 10 MG Tablet PO ×2 (08:26→22:03)
[2020-08-10] MEDS: Metoprolol Tartrate 25 MG Tablet PO ×2 (08:26→22:02)
[2020-08-10] MEDS: Tolterodine Tartrate 4 MG CAP.SA PO (08:26)
[2020-08-10] MEDS: Nystatin Powder 15gm Bottle 1 APPLIC TOPICAL ×2 (08:27→21:53)
[2020-08-10] MEDS: Menthol/Lanolin/Calamine/Znox 113 GM Tube 1 APPLIC TOPICAL ×4 (08:27→21:53)
[2020-08-10] MEDS: Ensure Clear 120 ML Liquid PO ×3 (08:27→17:03)
--- NOTE | 2020-08-10 08:55 | NURSING ---
wound photo: left abdominal fold
--- NOTE | 2020-08-10 08:57 | NURSING ---
wound photo: left posterior lower buttock
--- NOTE | 2020-08-10 08:58 | NURSING ---
wound photo: yimi
[2020-08-10] MEDS: Ceftriaxone 1 GM/50 ML BAG IV (10:26)
--- NOTE | 2020-08-10 11:44 | PN_ITS ---
Patient Problems: Active and Suspected Problems (Last Reviewed 08/08/20 @ 10:[address] Jose Yu MD) Anemia (Acute) MICHAELLE (acute kidney injury) (Acute) Reason for Visit: MICHAELLE Subjective: Had noticed blood in urine with clots. Denies any hematochezia/melena. Vitals/I&O's: Vital Signs Temp Pulse Resp BP Pulse Ox 36.6 C 79 18 117/50 L 98 08/10/20 09:00 08/10/20 09:00 08/10/20 09:00 08/10/20 09:00 08/10/20 09:00 Oxygen Flow Rate (L/min) 2 Oxygen Delivery Method Nasal Cannula Weight: 139.9 kg Body Mass Index (BMI) 48.3 Intake and Output for Last 24 Hours 08/08/20 08/09/20 08/10/20 23:59 23:59 23:59 Intake Total 3666.67 / 4066.67 3892.08 / 3892.08 160 / 160 Output Total 4950 / 6800 5950 / 5950 800 / 800 Balance -1283.33 / -2733.33 -2057.92 / -2057.92 -640 / -640 General: Alert, No apparent distress HEENT: Atraumatic, Normocephalic Oral: Moist Mucosa, No Gingival or Mucosal Lesions/ Ulcerations Neck: No Nodes, Thyroid Normal Size and Texture Lungs: Clear to auscultation, Normal air movement, No rhonchi, No wheeze Cardiovascular: Regular rate, Regular Rhythm, Normal S1, Normal S2, No murmurs Abdomen: Bowel Sounds Present, Soft, Non Tender, Non-Distended, Obese Extremities: Edema Musculoskeletal: Muscle Wasting Psych/Mental Status: Normal Affect, Appropriate Microbiology Past 72 Hours 08/07/20 17:24 Urine, Clean Catch Urine Culture - Preliminary Escherichia coli Providencia rettgeri 08/07/20 17:35 Stool Stool Occult Blood (WENDI) - Final Occult Blood Positive Laboratory Results 08/09/20 11:32: POC Glucose 129 H 08/09/20 16:11: POC Glucose 110 08/09/20 21:47: POC Glucose 142 H 08/10/20 05:45: WBC 9.2, RBC 3.44 L, Hgb 8.9 L, Hct 29.5 L, MCV 85.8, MCH 25.9 L , MCHC 30.2 L, RDW Std Deviation 53.6 H, RDW Coeff of Jessi 17.1 H, Plt Count 380, MPV 8.6, Immature Gran % (Auto) 1.300 H, Neut % (Auto) 77.1 H, Lymph % (Auto) 10.0 L, [place] % (Auto) 9.4, Eos % (Auto) 1.8, Baso % (Auto) 0.4, Absolute Neuts (auto) 7.1, Absolute Lymphs (auto) 0.92, Nucleated RBC % 0 08/10/20 05:45: Sodium 136, Potassium 3.9, Chloride 108 H, Carbon Dioxide 21.0, Anion Gap 7, BUN 35 H, Creatinine 1.54 H, Estim Creat Clear Calc 31.64, Est GFR (MDRD) Af Amer 42 L, Est GFR (MDRD) Non-Af 35 L, BUN/Creatinine Ratio 22.7 H, Glucose 120 H, Calcium 9.0, Total Bilirubin 0.30, AST 7 L, ALT 8 L, Alkaline Phosphatase 63, Total Protein 7.8, Albumin 1.8 L, Globulin 6.0 H, Albumin/Globulin Ratio 0.3 L 08/10/20 06:27: POC Glucose 119 H Current Medications Acetaminophen (Tylenol) 650 mg PO Q4H PRN PRN PRN Reason: FEVER, PAIN 1-10/10 Hydrocodone Bitart/Acetaminophen ([place] 5mg-325mg) 1 tablet PO Q6H PRN PRN PRN Reason: Pain Score 1-10/10 Last Admin: 08/09/20 10:26 Dose: 1 tablet Documented by: [facility]) [facility] Last Admin: 08/10/20 08:26 Dose: 500 mg Documented by: Baclofen (Lioresal) 20 mg PO DINNER [facility] Last Admin: 08/09/20 16:14 Dose: 20 mg Documented by: Baclofen (Lioresal) 10 mg PO BID [facility] Last Admin: 08/10/20 08:26 Dose: 10 mg Documented by: Calamine/Phenol (Calmoseptine Ointment) 1 applic TOPICAL 4X/DAY [facility]; Protocol Last Admin: 08/10/20 08:27 Dose: 1 applicatio Documented by: Diphenhydramine HCl (Benadryl) 25 mg PO QHS PRN PRN PRN Reason: INSOMNIA Duloxetine HCl (Cymbalta) 60 mg PO QHS [facility] Last Admin: 08/09/20 21:01 Dose: 60 mg Documented by: Fluconazole (Diflucan) 200 mg PO Sa@1000 [facility] Last Admin: 08/08/20 08:49 Dose: 200 mg Documented by: Gabapentin (Neurontin) 600 mg PO BID [facility] Last Admin: 08/10/20 08:25 Dose: 600 mg Documented by: Ceftriaxone Sodium (Rocephin) 1 gm in 50 mls @ 100 mls/hr IV Q24 [facility] Stop: 08/15/20 10:01 Last Admin: 08/10/20 10:26 Dose: 100 mls/hr Documented by: Pantoprazole Sodium 40 mg/ (Sodium Chloride) 110 mls @ 330 mls/hr IV Q12 [facility] Last Infusion: 08/10/20 09:14 Dose: Infused Documented by: Sodium Chloride () 250 mls @ 15 mls/hr IV .[id number] PRN PRN Reason: Additional IVPB Infusion Sodium Chloride () 1,000 mls @ 75 mls/hr IV .[id number] [facility] Last Admin: 08/09/20 23:58 Dose: 75 mls/hr Documented by: Insulin Human Lispro (Humalog Kwikpen (Bkc)) 0 unit SC ACHS [facility]; Protocol Last Admin: 08/10/20 06:31 Dose: Not Given Documented by: L-Arginine/L-Glutamine/Calcium HMB (John Packet) [facility] Last Admin: 08/10/20 08:25 Dose: 1 packet Documented by: Methenamine Hippurate (Hiprex) 1 gm PO BID [facility] Last Admin: 08/10/20 08:26 Dose: 1 gm Documented by: Metoprolol Tartrate (Lopressor (Beta Genaro)) 25 mg PO BID [facility] Last Admin: 08/10/20 08:26 Dose: 25 mg Documented by: Nitroglycerin (Nitrostat) 0.4 mg SUBLINGUAL Q5M PRN PRN Reason: CARDIAC/CHEST PAIN Nutritional Formula (Lactose Free) (Ensure Clear) 120 ml PO TIDCM [facility] Last Admin: 08/10/20 08:27 Dose: 120 ml Documented by: Nystatin (Mycostatin Powder) 1 applic TOPICAL BID [facility]; Protocol Last Admin: 08/10/20 08:27 Dose: 1 applicatio Documented by: Ondansetron HCl (Zofran) 4 mg IV Q8H PRN PRN PRN Reason: NAUSEA/VOMITING Potassium Chloride (K-Dur) 10 meq PO DAILYCM [facility] Last Admin: 08/10/20 08:26 Dose: 10 meq Documented by: Pravastatin Sodium (Pravachol) 20 mg PO QHS [facility] Last Admin: 08/09/20 21:03 Dose: 20 mg Documented by: Sodium Chloride () 10 - 40 ml IV UD PRN PRN Reason: SALINE FLUSH Last Admin: 08/08/20 17:09 Dose: 10 ml Documented by: Tolterodine Tartrate (Detrol La) 4 mg PO DAILY [facility] Last Admin: 08/10/20 08:26 Dose: 4 mg Documented by: Venlafaxine HCl (Effexor Xr) 150 mg PO BID [facility] Last Admin: 08/10/20 08:26 Dose: 150 mg Documented by: STROKE Vital Signs/Narrative: Vital Signs Temp Pulse Resp BP Pulse Ox 08/10/20 09:00 36.6 C 79 18 117/50 L 98 08/10/20 08:26 79 Medical Necessity - Tobacco Use Smoking Status: Never smoker Assessment/Plan All Active Problems (Last Reviewed 08/08/20 @ 10:[address] Jose Yu MD) Anemia (Acute) Severe sepsis (Resolved) Cellulitis of left abdominal wall (Resolved) Severe sepsis (Resolved) V tach (Resolved) MICHAELLE (acute kidney injury) (Acute) Suprapubic catheter dysfunction (Resolved) 1. Acute blood loss anemia * +/- GI source * FOB + * surgery to eventually perform endoscopy * stable after 2 units PRBCs * likely iron-deficient * unable to tolerate iron, hold off on replacement 2. MICHAELLE * improved * HLIV 3. GI bleed * general surgery for endoscopy 4. UTI * +ESBL E. coli and prvidencia * continue CTX 5. Debility * chronic. functional paraplegia * plan for patient to return home with home care upon discharge 6. Chronic condition * morbid obesity * DM2 GERD * HTN 7. VTE prophylaxis: SCDs Greater than 35 minutes of which greater than 50% of the time was counseling about bleeding, work up, MICHAELLE. Inpatient E&M: 00244 [facility] Hosp L3
[2020-08-10] MEDS: Electrolyte Solution/Peg's 4000 ML PO (15:35)
--- NOTE | 2020-08-10 16:09 | PN.SURG_ITS ---
Patient Problems: Active and Suspected Problems (Last Reviewed 08/08/20 @ 10:[address] Jose Yu MD) Anemia (Acute) MICHAELLE (acute kidney injury) (Acute) Subjective: Patient continues to show improvement with her renal function. Objective: Abdomen is obese and soft - Physical Exam Vitals/I&O's: Vital Signs Temp Pulse Resp BP Pulse Ox 97.9 F 76 18 117/50 L 98 08/10/20 09:00 08/10/20 12:01 08/10/20 09:00 08/10/20 09:00 08/10/20 09:00 Oxygen Flow Rate (L/min) 2 Oxygen Delivery Method Nasal Cannula Weight: 308 lb 6.827 oz Body Mass Index (BMI) 48.3 Intake and Output for Last 24 Hours 08/08/20 08/09/20 08/10/20 23:59 23:59 23:59 Intake Total 3666.67 / 4066.67 3892.08 / 3892.08 1060 / 1060 Output Total 4950 / 6800 5950 / 5950 1150 / 1150 Balance -1283.33 / -2733.33 -2057.92 / -2057.92 -90 / -90 Microbiology Past 72 Hours 08/07/20 17:24 Urine, Clean Catch Urine Culture - Preliminary Escherichia coli Providencia rettgeri 08/07/20 17:35 Stool Stool Occult Blood (WENDI) - Final Occult Blood Positive Laboratory Results 08/09/20 16:11: POC Glucose 110 08/09/20 21:47: POC Glucose 142 H 08/10/20 05:45: WBC 9.2, RBC 3.44 L, Hgb 8.9 L, Hct 29.5 L, MCV 85.8, MCH 25.9 L , MCHC 30.2 L, RDW Std Deviation 53.6 H, RDW Coeff of Jessi 17.1 H, Plt Count 380, MPV 8.6, Immature Gran % (Auto) 1.300 H, Neut % (Auto) 77.1 H, Lymph % (Auto) 10.0 L, [place] % (Auto) 9.4, Eos % (Auto) 1.8, Baso % (Auto) 0.4, Absolute Neuts (auto) 7.1, Absolute Lymphs (auto) 0.92, Nucleated RBC % 0 08/10/20 05:45: Sodium 136, Potassium 3.9, Chloride 108 H, Carbon Dioxide 21.0, Anion Gap 7, BUN 35 H, Creatinine 1.54 H, Estim Creat Clear Calc 31.64, Est GFR (MDRD) Af Amer 42 L, Est GFR (MDRD) Non-Af 35 L, BUN/Creatinine Ratio 22.7 H, Glucose 120 H, Calcium 9.0, Total Bilirubin 0.30, AST 7 L, ALT 8 L, Alkaline Phosphatase 63, Total Protein 7.8, Albumin 1.8 L, Globulin 6.0 H, Albumin/Globulin Ratio 0.3 L 08/10/20 06:27: POC Glucose 119 H Current Medications Acetaminophen (Tylenol) 650 mg PO Q4H PRN PRN PRN Reason: FEVER, PAIN 1-10/10 Hydrocodone Bitart/Acetaminophen ([place] 5mg-325mg) 1 tablet PO Q6H PRN PRN PRN Reason: Pain Score 1-10/10 Last Admin: 08/09/20 10:26 Dose: 1 tablet Documented by: [facility]) [facility] Last Admin: 08/10/20 08:26 Dose: 500 mg Documented by: Baclofen (Lioresal) 20 mg PO DINNER [facility] Last Admin: 08/09/20 16:14 Dose: 20 mg Documented by: Baclofen (Lioresal) 10 mg PO BID [facility] Last Admin: 08/10/20 08:26 Dose: 10 mg Documented by: Calamine/Phenol (Calmoseptine Ointment) 1 applic TOPICAL 4X/DAY [facility]; Protocol Last Admin: 08/10/20 15:35 Dose: 1 applicatio Documented by: Diphenhydramine HCl (Benadryl) 25 mg PO QHS PRN PRN PRN Reason: INSOMNIA Duloxetine HCl (Cymbalta) 60 mg PO QHS [facility] Last Admin: 08/09/20 21:01 Dose: 60 mg Documented by: Fluconazole (Diflucan) 200 mg PO Sa@1000 [facility] Last Admin: 08/08/20 08:49 Dose: 200 mg Documented by: Gabapentin (Neurontin) 600 mg PO BID [facility] Last Admin: 08/10/20 08:25 Dose: 600 mg Documented by: Ceftriaxone Sodium (Rocephin) 1 gm in 50 mls @ 100 mls/hr IV Q24 [facility] Stop: 08/15/20 10:01 Last Infusion: 08/10/20 10:56 Dose: Infused Documented by: Pantoprazole Sodium 40 mg/ (Sodium Chloride) 110 mls @ 330 mls/hr IV Q12 [facility] Last Infusion: 08/10/20 09:14 Dose: Infused Documented by: Sodium Chloride () 250 mls @ 15 mls/hr IV .[id number] PRN PRN Reason: Additional IVPB Infusion Insulin Human Lispro (Humalog Kwikpen (Bkc)) 0 unit SC ACHS [facility]; Protocol Last Admin: 08/10/20 12:27 Dose: Not Given Documented by: L-Arginine/L-Glutamine/Calcium HMB (John Packet) [facility] Last Admin: 08/10/20 08:25 Dose: 1 packet Documented by: Methenamine Hippurate (Hiprex) 1 gm PO BID [facility] Last Admin: 08/10/20 08:26 Dose: 1 gm Documented by: Metoprolol Tartrate (Lopressor (Beta Genaro)) 25 mg PO BID [facility] Last Admin: 08/10/20 08:26 Dose: 25 mg Documented by: Nitroglycerin (Nitrostat) 0.4 mg SUBLINGUAL Q5M PRN PRN Reason: CARDIAC/CHEST PAIN Nutritional Formula (Lactose Free) (Ensure Clear) 120 ml PO TIDCM [facility] Last Admin: 08/10/20 15:35 Dose: 120 ml Documented by: Nystatin (Mycostatin Powder) 1 applic TOPICAL BID [facility]; Protocol Last Admin: 08/10/20 08:27 Dose: 1 applicatio Documented by: Ondansetron HCl (Zofran) 4 mg IV Q8H PRN PRN PRN Reason: NAUSEA/VOMITING Potassium Chloride (K-Dur) 10 meq PO DAILYCM [facility] Last Admin: 08/10/20 08:26 Dose: 10 meq Documented by: Pravastatin Sodium (Pravachol) 20 mg PO QHS [facility] Last Admin: 08/09/20 21:03 Dose: 20 mg Documented by: Sodium Chloride () 10 - 40 ml IV UD PRN PRN Reason: SALINE FLUSH Last Admin: 08/08/20 17:09 Dose: 10 ml Documented by: Tolterodine Tartrate (Detrol La) 4 mg PO DAILY [facility] Last Admin: 08/10/20 08:26 Dose: 4 mg Documented by: Venlafaxine HCl (Effexor Xr) 150 mg PO BID [facility] Last Admin: 08/10/20 08:26 Dose: 150 mg Documented by: Medical Necessity - Tobacco Use Smoking Status: Never smoker Assessment/Plan All Active Problems (Last Reviewed 08/08/20 @ 10:[address] Jose Yu MD) Anemia (Acute) Severe sepsis (Resolved) Cellulitis of left abdominal wall (Resolved) Severe sepsis (Resolved) V tach (Resolved) MICHAELLE (acute kidney injury) (Acute) Suprapubic catheter dysfunction (Resolved) We will do a bowel prep today and plan on doing an upper and lower endoscopy tomorrow. Inpatient E&M: 21906 Subs Hosp L2
[2020-08-10] MEDS: Baclofen 10 MG Tablet 20 MG PO (17:03)
[2020-08-10 17:15] LABS: Bedside Glucose 90 mg/dL (70-110)
[2020-08-10] MEDS: DULoxetine Hcl 60 MG Capsule PO (22:02)
[2020-08-10] MEDS: Pravastatin 20 MG Tablet PO (22:04)
[2020-08-10 22:46] LABS: Bedside Glucose 93 mg/dL (70-110)
[2020-08-11] VITALS (12 sets, daily range): BP systolic 97–135; BP diastolic 46–94; PULSE 75–88; RESP 14–18; TEMP 36.5–36.9; O2SAT 93–100
[2020-08-11 06:31] LABS: Bedside Glucose 129 mg/dL (70-110)
[2020-08-11 07:29] LABS: Absolute Lymphocyte Count 0.97 X10^3/uL (0.83-4.51); Absolute Neutrophil Count 6.3 X10^3/uL (2.0-7.7); Basophil# 0.02 X10^3/uL; Basophil% 0.2 % (0-1); Eosinophil# 0.13 X10^3/uL; Eosinophils% 1.6 % (0-5); Hematocrit 27.1 % (37-47); Hemoglobin 8.1 g/dL (12.0-15.0); Lymphocyte # 0.97 X10^3/ul (4.0); Lymphocyte % 11.6 % (19-41); Mean Corp Hgb Conc 29.9 g/dL (32-36); Mean Corpuscular Hgb 25.7 pg (27.0-32.0); Mean Platelet Vol. 8.9 fl (6.2-12.0); Monocyte# 0.88 X10^3/uL; Monocyte% 10.5 % (0-10); NRBC Flagged by Analyzer 0 % (0-5); Neutrophil # 6.28 X10^3/uL (2.7-7.7); Neutrophil % 74.9 % (47-70); Platelet Count 327 K/mm3 (150-450); RBC Distribution Width CV 17.2 % (11.6-14.6); RBC Distribution Width SD 53.2 fl (35.1-43.9); Red Blood Count 3.15 M/mm3 (4.2-5.4); White Blood Count 8.4 K/mm3 (4.4-11.0)
[2020-08-11 07:37] LABS: International Normalized Ratio 1.3; Partial Thromboplast Time 32.7 Seconds (24.1-36.2); Prothrombin Time (Protime)PT. 16.1 SECONDS (11.7-14.9)
[2020-08-11 07:51] LABS: ALB/GLOB Ratio 0.3 RATIO (0.9-2.4); AST(SGOT) 9 U/L (15-37); Alanine Aminotransfer ALT/SGPT 7 U/L (13-56); Albumin, Serum 1.7 g/dL (3.2-5.0); Alkaline Phosphatase 59 U/L (45-117); Anion Gap 6 (5-15); BUN 34 mg/dL (7-18); BUN/Creat Ratio 23.9 RATIO (10-20); Calcium,Total 8.5 mg/dL (8.5-10.1); Chloride 106 mmol/L (98-107); Creatinine, Serum 1.42 mg/dL (0.55-1.02); EST Glomerular Filtration Rate 39 mL/min (>60); Est Glom Filt Rate - Afr Amer 47 mL/min (>60); Estimated Creatinine Clearance 34.31 ml/min; Globulin 5.6 g/dL (2.2-4.2); Glucose 117 mg/dL (74-106); Potassium 3.3 mmol/L (3.5-5.1); Protein, Total 7.3 g/dL (6.4-8.2); Sodium Level 136 mmol/L (136-145)
[2020-08-11 08:02] LABS: Hemoglobin A1c 5.7 % (3.8-5.6)
--- NOTE | 2020-08-11 08:02 | CASEMGMT ---
TONI CM Note: Call to Senia @ [facility]. Referral was accepted for HHC on dc. Alec CHUA RN ACM
[2020-08-11] MEDS: Venlafaxine XR 150 MG Capsule PO ×2 (08:55→22:01)
[2020-08-11] MEDS: Baclofen 10 MG Tablet PO ×2 (08:56→22:02)
[2020-08-11] MEDS: Metoprolol Tartrate 25 MG Tablet PO ×2 (08:56→22:02)
[2020-08-11] MEDS: Gabapentin 600 MG Tablet PO ×2 (08:56→22:01)
[2020-08-11] MEDS: Methenamine Hippurate 1 GM Tablet PO ×2 (08:56→22:02)
[2020-08-11] MEDS: Tolterodine Tartrate 4 MG CAP.SA PO (08:56)
--- NOTE | 2020-08-11 09:15 | PCM.PN.HOSP ---
Patient Problems: Active and Suspected Problems (Last Reviewed 08/08/20 @ 10:[address] Jose Yu MD) Anemia (Acute) MICHAELLE (acute kidney injury) (Acute) Reason for Visit: anemia Subjective: Groggy this AM. No further blood in torrez. Vitals/I&O's: Vital Signs Temp Pulse Resp BP Pulse Ox 36.7 C 86 16 107/54 L 98 08/11/20 08:53 08/11/20 08:56 08/11/20 08:53 08/11/20 08:53 08/11/20 08:53 Oxygen Flow Rate (L/min) 2 Oxygen Delivery Method Nasal Cannula Weight: 139.9 kg Body Mass Index (BMI) 48.3 Intake and Output for Last 24 Hours 08/09/20 08/10/20 08/11/20 23:59 23:59 23:59 Intake Total 3892.08 / 3892.08 3270 / 5270 1999 / 1999 Output Total 5950 / 5950 2400 / 3900 2400 / 2400 Balance -2057.92 / -2057.92 870 / 1370 -400 / -400 General: Alert, - - groggy (had just been woken up prior to my arrival) HEENT: Atraumatic, Normocephalic Oral: Moist Mucosa, No Gingival or Mucosal Lesions/ Ulcerations Neck: No Nodes, Thyroid Normal Size and Texture Lungs: Clear to auscultation, Normal air movement, No rhonchi, No wheeze Cardiovascular: Regular rate, Regular Rhythm, Normal S1, Normal S2 Abdomen: Bowel Sounds Present, Soft, Non Tender, Non-Distended, No Hepato-splenomegaly Extremities: No edema, No Calf Tenderness Skin: No rashes, No breakdown Psych/Mental Status: Normal Affect, Appropriate Microbiology Past 72 Hours 08/07/20 17:24 Urine, Clean Catch Urine Culture - Final Escherichia coli Providencia rettgeri Laboratory Results 08/10/20 17:01: POC Glucose 90 08/10/20 21:46: POC Glucose 93 08/11/20 06:27: POC Glucose 129 H 08/11/20 07:03: WBC 8.4, RBC 3.15 L, Hgb 8.1 L, Hct 27.1 L, MCV 86.0, MCH 25.7 L, MCHC 29.9 L, RDW Std Deviation 53.2 H, RDW Coeff of Jessi 17.2 H, Plt Count 327, MPV 8.9, Immature Gran % (Auto) 1.200 H, Neut % (Auto) 74.9 H, Lymph % (Auto) 11.6 L, [place] % (Auto) 10.5 H, Eos % (Auto) 1.6, Baso % (Auto) 0.2, Absolute Neuts (auto) 6.3, Absolute Lymphs (auto) 0.97, Nucleated RBC % 0 08/11/20 07:03: Sodium 136, Potassium 3.3 L, Chloride 106, Carbon Dioxide 24.0, Anion Gap 6, BUN 34 H, Creatinine 1.42 H, Estim Creat Clear Calc 34.31, Est GFR (MDRD) Af Amer 47 L, Est GFR (MDRD) Non-Af 39 L, BUN/Creatinine Ratio 23.9 H, Glucose 117 H, Calcium 8.5, Total Bilirubin 0.20, AST 9 L, ALT 7 L, Alkaline Phosphatase 59, Total Protein 7.3, Albumin 1.7 L, Globulin 5.6 H, Albumin/Globulin Ratio 0.3 L 08/11/20 07:03: PT 16.1 H, INR 1.3, APTT 32.7 08/11/20 07:03: Hemoglobin A1c 5.7 H Current Medications Acetaminophen (Tylenol) 650 mg PO Q4H PRN PRN PRN Reason: FEVER, PAIN 1-10/10 Hydrocodone Bitart/Acetaminophen ([place] 5mg-325mg) 1 tablet PO Q6H PRN PRN PRN Reason: Pain Score 1-10/10 Last Admin: 08/09/20 10:26 Dose: 1 tablet Documented by: Ascorbic [facility] (Vitamin C) [facility] Last Admin: 08/11/20 08:54 Dose: Not Given Documented by: Baclofen (Lioresal) 20 mg PO DINNER [facility] Last Admin: 08/10/20 17:03 Dose: 20 mg Documented by: Baclofen (Lioresal) 10 mg PO BID [facility] Last Admin: 08/11/20 08:56 Dose: 10 mg Documented by: Calamine/Phenol (Calmoseptine Ointment) 1 applic TOPICAL 4X/DAY [facility]; Protocol Last Admin: 08/10/20 21:53 Dose: 1 applicatio Documented by: Diphenhydramine HCl (Benadryl) 25 mg PO QHS PRN PRN PRN Reason: INSOMNIA Duloxetine HCl (Cymbalta) 60 mg PO QHS [facility] Last Admin: 08/10/20 22:02 Dose: 60 mg Documented by: Fluconazole (Diflucan) 200 mg PO Sa@1000 [facility] Last Admin: 08/08/20 08:49 Dose: 200 mg Documented by: Gabapentin (Neurontin) 600 mg PO BID [facility] Last Admin: 08/11/20 08:56 Dose: 600 mg Documented by: Ceftriaxone Sodium (Rocephin) 1 gm in 50 mls @ 100 mls/hr IV Q24 [facility] Stop: 08/15/20 10:01 Last Infusion: 08/10/20 10:56 Dose: Infused Documented by: Pantoprazole Sodium 40 mg/ (Sodium Chloride) 110 mls @ 330 mls/hr IV Q12 [facility] Last Infusion: 08/10/20 22:06 Dose: Infused Documented by: Sodium Chloride () 250 mls @ 15 mls/hr IV .[id number] PRN PRN Reason: Additional IVPB Infusion Insulin Human Lispro (Humalog Kwikpen (Bkc)) 0 unit SC ACHS [facility]; Protocol Last Admin: 08/11/20 06:29 Dose: Not Given Documented by: L-Arginine/L-Glutamine/Calcium HMB (John Packet) 1 packet PO BIDCM [facility] Last Admin: 08/11/20 08:50 Dose: Not Given Documented by: Methenamine Hippurate (Hiprex) 1 gm PO BID [facility] Last Admin: 08/11/20 08:56 Dose: 1 gm Documented by: Metoprolol Tartrate (Lopressor (Beta Genaro)) 25 mg PO BID [facility] Last Admin: 08/11/20 08:56 Dose: 25 mg Documented by: Nitroglycerin (Nitrostat) 0.4 mg SUBLINGUAL Q5M PRN PRN Reason: CARDIAC/CHEST PAIN Nutritional Formula (Lactose Free) (Ensure Clear) 120 ml PO TIDCM [facility] Last Admin: 08/11/20 08:50 Dose: Not Given Documented by: Nystatin (Mycostatin Powder) 1 applic TOPICAL BID [facility]; Protocol Last Admin: 08/10/20 21:53 Dose: 1 applicatio Documented by: Ondansetron HCl (Zofran) 4 mg IV Q8H PRN PRN PRN Reason: NAUSEA/VOMITING Potassium Chloride (K-Dur) 10 meq PO DAILYCM [facility] Last Admin: 08/11/20 08:56 Dose: 10 meq Documented by: Pravastatin Sodium (Pravachol) 20 mg PO QHS [facility] Last Admin: 08/10/20 22:04 Dose: 20 mg Documented by: Sodium Chloride () 10 - 40 ml IV UD PRN PRN Reason: SALINE FLUSH Last Admin: 08/08/20 17:09 Dose: 10 ml Documented by: Tolterodine Tartrate (Detrol La) 4 mg PO DAILY [facility] Last Admin: 08/11/20 08:56 Dose: 4 mg Documented by: Venlafaxine HCl (Effexor Xr) 150 mg PO BID [facility] Last Admin: 08/11/20 08:55 Dose: 150 mg Documented by: STROKE Vital Signs/Narrative: Vital Signs Temp Pulse Resp BP Pulse Ox 08/11/20 08:56 86 08/11/20 08:53 36.7 C 86 16 107/54 L 98 08/11/20 07:01 99 Medical Necessity - Tobacco Use Smoking Status: Never smoker Assessment/Plan All Active Problems (Last Reviewed 08/08/20 @ 10:[address] Jose Yu MD) Anemia (Acute) Severe sepsis (Resolved) Cellulitis of left abdominal wall (Resolved) Severe sepsis (Resolved) V tach (Resolved) MICHAELLE (acute kidney injury) (Acute) Suprapubic catheter dysfunction (Resolved) 1. Acute blood loss anemia +/- GI source FOB + surgery to perform endoscopy 08/11 stable after 2 units PRBCs likely iron-deficient unable to tolerate iron, hold off on replacement Hg down to 8.1 today (from 8.9), hold off on transfusion at this time. 2. MICHAELLE improved HLIV 3. GI bleed general surgery for endoscopy 4. UTI +ESBL E. coli and providencia continue CTX 5. Debility chronic. functional paraplegia plan for patient to return home with home care upon discharge 6. Chronic condition morbid obesity DM2 GERD HTN 7. VTE prophylaxis: SCDs Inpatient E&M: 36239 Subs Hosp L2
[2020-08-11] MEDS: Menthol/Lanolin/Calamine/Znox 113 GM Tube 1 APPLIC TOPICAL ×2 (10:43→22:00)
[2020-08-11] MEDS: Nystatin Powder 15gm Bottle 1 APPLIC TOPICAL ×2 (10:44→22:00)
[2020-08-11] MEDS: Ceftriaxone 1 GM/50 ML BAG IV (11:21)
[2020-08-11 11:30] LABS: Bedside Glucose 97 mg/dL (70-110)
--- NOTE | 2020-08-11 13:30 | IMM_PTH ---
PATIENT: ISELA CAMARENA LOC: MS3 U#:[id number] AGE/SX: 74/F ROOM: [facility] RE08/07/[address]: Dr. Luís Collazo DO : 1945 BED: 1 DIS: 08/13/2020 SPEC #: [id number] RECD: 08/12/20 09:57 STATUS: ANGELES REQ #: [id number] CARLY: 08/11/20 13:[address]: Jose Yu DEPT: IMMUNOHISTOCHEMISTRY RECD BY: Caron Cortes ENTERED: 08/12/20 09:57 SP TYPE: IMMUNO OTHR DR: DO Dr. Colby Gates DO Dr. Nana Yaa Koram, MD Tissues: Stomach, NOS Procedures: H Pylori (initial) PHYSICIAN & INSTITUTION [place] [address] SPECIMEN INFORMATION: Tissue Source: Antral biopsy Clinical Info: Anemia Specimen Number: [id number] CPT code: 26873 METHODOLOGY: Deparaffinized sections of prefer/formalin-fixed tissue or PAP/DQ stained slides are incubated with monoclonal/polyclonal antibodies/oligonucleotide probes. Localization is made via biotin free immunoperoxidase method. Appropriate controls are performed and reacted as expected. Results on target cell population are indicated in the following table: RESULTS: ANTIBODY / CLONE RESULT H Pylori (polyclonal) negative These tests were developed and their performance characteristics determined by [facility]. They may not have been cleared or approved by the U.S. Food and Drug Administration. The FDA has determined that such clearance or approval is not necessary. INTERPRETATION: Antral biopsy: Negative for Helicobacter pylori organisms. AM:alexx 08/13/20
--- NOTE | 2020-08-11 13:30 | COLBX_PTH ---
PATIENT: ISELA CAMARENA LOC: MS3 U#:[id number] AGE/SX: 74/F ROOM: [facility] [place] RE08/07/[address]: Dr. Luís Collazo DO : 1945 BED: 1 DIS: 08/13/2020 SPEC #: [id number] RECD: 08/11/20 14:47 STATUS: ANGELES REQ #: [id number] CARLY: 08/11/20 13:[address]: Jose Yu DEPT: SURGICAL PATHOLOGY RECD BY: Heidi Dubois ENTERED: 08/12/20 07:28 SP TYPE: COLON BX OTHR DR: MD Dr. Luís Howe DO Dr. Mark Stutzman, DO Dr. Nana Yaa Koram, MD Tissues: Gastric mucous membrane Procedures: Surgery Specimen Level IV Comments: @ Ordering doctor for SUIV edited from to DR.DPEABO Maurice OLEA at 08/12/20 1029 @ Submitting doctor edited from to @ by EMMIE at 08/12/20 1029 HEADER OPERATION: Colonoscopy, EGD ([facility] [place]) PRE-OP DIAGNOSIS: Anemia TISSUE SUBMITTED: Antral biopsy for H. pylori and pathology MICROSCOPIC DIAGNOSIS Gastric antrum, biopsy: Moderate chronic gastritis. See comment. AM:alexx 08/13/20 COMMENT The results of immunohistochemistry for Helicobacter pylori will be reported separately ([id number]). MICROSCOPIC DESCRIPTION Slides are reviewed. GROSS DESCRIPTION Received in fixative is one container labeled with the patient's name and designated antral biopsy. The specimen consists of a single fragment of ac tissue measuring 0.5 x 0.2 x 0.1 cm. The specimen is totally submitted in one cassette. / AM:alexx 08/12/20 TC:3 CPT: 80994
--- NOTE | 2020-08-11 14:29 | OP.CCLET_ITS ---
08/11/2020 Colby Valenzuela [address] [place] [address] Re : Upper GI endoscopy procedure for Violette Carpenter Dear Dr. Valenzuela This procedure was performed on Tuesday, August 11, 2020. My impressions and recommendations are as follows: Impressions : - Normal esophagus. - Erythematous mucosa in the prepyloric region of the stomach. Biopsied. - Normal examined duodenum. Recommendations : - Await pathology results. - Repeat upper endoscopy (date not yet determined) for surveillance. - Return to primary care physician at appointment to be scheduled. - Continue present medications. My findings are described in the full procedure note, which is enclosed. If I can be of further assistance, please feel free to contact me at Doctor phone number(s): , Fax: [phone], Work: . Sincerely, MD Jose Chris MD 08/11/2020 2:29:12 PM This report has been signed electronically.
--- NOTE | 2020-08-11 14:29 | OP.EGD_ITS ---
Patient Name: Violette Carpenter Procedure Date: 08/11/2020 1:37 PM Date of : 1945 Age: 74 Procedure: Upper GI endoscopy Indications: Iron deficiency anemia secondary to chronic blood loss Providers: Jose Yu MD Medicines: See the Anesthesia note for documentation of the administered medications Patient Profile: This is a 74 year old female. Refer to note in patient chart for documentation of history and physical. Complications: No immediate complications. Procedure: Pre-Anesthesia Assessment: - Prior to the procedure, a History and Physical was performed, and patient medications and allergies were reviewed. The patient's tolerance of previous anesthesia was also reviewed. The risks and benefits of the procedure and the sedation options and risks were discussed with the patient. All questions were answered, and informed consent was obtained. Prior Anticoagulants: The patient has taken aspirin, last dose was 4 days prior to procedure. ASA Grade Assessment: IV - A patient with severe systemic disease that is a constant threat to life. After reviewing the risks and benefits, the patient was deemed in satisfactory condition to undergo the procedure. After obtaining informed consent, the endoscope was passed under direct vision. Throughout the procedure, the patient's blood pressure, pulse, and oxygen saturations were monitored continuously. The Endoscope was introduced through the mouth, and advanced to the second part of duodenum. The upper GI endoscopy was accomplished without difficulty. The patient tolerated the procedure well. Scope In: 2:03:55 PM Scope Out: 2:07:24 PM Total Procedure Duration Time 0 hours 3 minutes 29 seconds Findings: The examined esophagus was normal. Localized mildly erythematous mucosa without bleeding was found in the prepyloric region of the stomach. Biopsies were taken with a cold forceps for Helicobacter pylori testing. The examined duodenum was normal. Impression: - Normal esophagus. - Erythematous mucosa in the prepyloric region of the stomach. Biopsied. - Normal examined duodenum. Recommendation: - Await pathology results. - Repeat upper endoscopy (date not yet determined) for surveillance. - Return to primary care physician at appointment to be scheduled. - Continue present medications. Procedure Code(s): --- Professional --- 79854, Esophagogastroduodenoscopy, flexible, transoral; with biopsy, single or multiple Diagnosis Code(s): --- Professional --- K31.89, Other diseases of stomach and duodenum D50.0, Iron deficiency anemia secondary to blood loss (chronic) CPT copyright 2017 [employer]. All rights reserved. The codes documented in this report are preliminary and upon hims coder review may be revised to meet current compliance requirements. MD Jose Chris MD 08/11/2020 2:29:12 PM This report has been signed electronically. Number of Addenda: 0 Note Initiated On: 08/11/2020 1:37 PM
--- NOTE | 2020-08-11 14:35 | OP.COLON_ITS ---
Patient Name: Violette Carpenter Procedure Date: 08/11/2020 2:07 PM Date of : 1945 Age: 74 Procedure: Colonoscopy Indications: Iron deficiency anemia secondary to chronic blood loss, Iron deficiency anemia Providers: Jose Yu MD Medicines: See the Anesthesia note for documentation of the administered medications Patient Profile: This is a 74 year old female. Refer to note in patient chart for documentation of history and physical. Last Colonoscopy: date unknown. Unable to locate last colonoscopy report. Complications: No immediate complications. Procedure: Pre-Anesthesia Assessment: - Prior to the procedure, a History and Physical was performed, and patient medications and allergies were reviewed. The patient's tolerance of previous anesthesia was also reviewed. The risks and benefits of the procedure and the sedation options and risks were discussed with the patient. All questions were answered, and informed consent was obtained. Prior Anticoagulants: The patient has taken aspirin, last dose was 4 days prior to procedure. ASA Grade Assessment: IV - A patient with severe systemic disease that is a constant threat to life. After reviewing the risks and benefits, the patient was deemed in satisfactory condition to undergo the procedure. - Prior to the procedure, a History and Physical was performed, and patient medications and allergies were reviewed. The patient's tolerance of previous anesthesia was also reviewed. The risks and benefits of the procedure and the sedation options and risks were discussed with the patient. All questions were answered, and informed consent was obtained. Prior Anticoagulants: The patient has taken aspirin, last dose was 4 days prior to procedure. ASA Grade Assessment: IV - A patient with severe systemic disease that is a constant threat to life. After reviewing the risks and benefits, the patient was deemed in satisfactory condition to undergo the procedure. After I obtained informed consent, the scope was passed under direct vision. Throughout the procedure, the patient's blood pressure, pulse, and oxygen saturations were monitored continuously. The colonoscope was introduced through the anus and advanced to the hepatic flexure. The colonoscopy was extremely difficult due to significant looping. Successful completion of the procedure was aided by applying abdominal pressure. The patient tolerated the procedure well. The quality of the bowel preparation was adequate to identify polyps 6 mm and larger in size. Scope In: 2:09:46 PM Scope Out: 2:24:36 PM Total Procedure Duration Time 0 hours 14 minutes 50 seconds Findings: A few small-mouthed diverticula were found in the sigmoid colon and descending colon. No biopsies or other specimens were collected for this exam. Non-bleeding internal hemorrhoids were found during retroflexion. The hemorrhoids were mild and small. The exam was otherwise without abnormality. Impression: - Diverticulosis in the sigmoid colon and in the descending colon. No specimens collected. - Non-bleeding internal hemorrhoids. - The examination was otherwise normal. However I was unable to reach the cecum nor was I able to even see the cecum since I was only able to get to the hepatic flexure. Despite numerous attempts at repositioning the patient and increasing the sedation I was unable to advance any further. Recommendation: - Return [facility]. - Resume previous diet. - Continue present medications. - Repeat colonoscopy in 10 years for screening purposes. - Perform an air contrast barium enema at the next available appointment. Procedure Code(s): --- Professional --- 87106, 53, Colonoscopy, flexible; diagnostic, including collection of specimen(s) by brushing or washing, when performed (separate procedure) Diagnosis Code(s): --- Professional --- K64.8, Other hemorrhoids D50.0, Iron deficiency anemia secondary to blood loss (chronic) D50.9, Iron deficiency anemia, unspecified K57.30, Diverticulosis of large intestine without perforation or abscess without bleeding CPT copyright 2017 [employer]. All rights reserved. The codes documented in this report are preliminary and upon senior applications architect review may be revised to meet current compliance requirements. MD Jose Chris MD 08/11/2020 2:35:32 PM This report has been signed electronically. Number of Addenda: 0 Note Initiated On: 08/11/2020 2:07 PM
--- NOTE | 2020-08-11 14:35 | OP.CCLET_ITS ---
08/11/2020 Colby Valenzuela [address] [facility] [place] [address] Re : Colonoscopy procedure for Violette Carpenter Dear Dr. Valenzuela This procedure was performed on Tuesday, August 11, 2020. My impressions and recommendations are as follows: Impressions : - Diverticulosis in the sigmoid colon and in the descending colon. No specimens collected. - Non-bleeding internal hemorrhoids. - The examination was otherwise normal. However I was unable to reach the cecum nor was I able to even see the cecum since I was only able to get to the hepatic flexure. Despite numerous attempts at repositioning the patient and increasing the sedation I was unable to advance any further. Recommendations : - Return patient to [facility] for [facility] care. - Resume previous diet. - Continue present medications. - Repeat colonoscopy in 10 years for screening purposes. - Perform an air contrast barium enema at the next available appointment. My findings are described in the full procedure note, which is enclosed. If I can be of further assistance, please feel free to contact me at Doctor phone number(s): , Fax: [phone], Work: . Sincerely, MD Jose Chris MD 08/11/2020 2:35:32 PM This report has been signed electronically.
[2020-08-11] MEDS: Juven (unflavored) Packet 1 PACKET PO (17:07)
[2020-08-11] MEDS: Baclofen 10 MG Tablet 20 MG PO (17:07)
[2020-08-11] MEDS: Ascorbic Acid 500 MG Tablet PO (17:08)
[2020-08-11] MEDS: Ensure Clear 120 ML Liquid PO (17:09)
[2020-08-11 17:10] LABS: Bedside Glucose 80 mg/dL (70-110)
[2020-08-11] MEDS: DULoxetine Hcl 60 MG Capsule PO (22:00)
[2020-08-11] MEDS: Pravastatin 20 MG Tablet PO (22:01)
[2020-08-11 22:15] LABS: Bedside Glucose 111 mg/dL (70-110)
[2020-08-11] MEDS: HYDROcodone Bitartrate/Apap 5/325 Tablet PO (22:48)
[2020-08-12] VITALS (7 sets, daily range): BP systolic 92–97; BP diastolic 38–68; PULSE 62–85; RESP 16–18; TEMP 36.6–36.8; O2SAT 97–100
[2020-08-12 06:45] LABS: Bedside Glucose 124 mg/dL (70-110)
[2020-08-12 08:12] LABS: Absolute Lymphocyte Count 0.81 X10^3/uL (0.83-4.51); Absolute Neutrophil Count 7.1 X10^3/uL (2.0-7.7); Basophil# 0.03 X10^3/uL; Basophil% 0.3 % (0-1); Eosinophil# 0.08 X10^3/uL; Eosinophils% 0.9 % (0-5); Hematocrit 35.4 % (37-47); Hemoglobin 10.2 g/dL (12.0-15.0); Lymphocyte # 0.81 X10^3/ul (4.0); Lymphocyte % 9.2 % (19-41); Mean Corp Hgb Conc 28.8 g/dL (32-36); Mean Corpuscular Hgb 28.7 pg (27.0-32.0); Mean Corpuscular Volume 99.7 fL (81-99); Mean Platelet Vol. 8.7 fl (6.2-12.0); Monocyte# 0.71 X10^3/uL; Monocyte% 8.1 % (0-10); NRBC Flagged by Analyzer 0 % (0-5); Neutrophil # 7.07 X10^3/uL (2.7-7.7); Neutrophil % 80.7 % (47-70); Platelet Count 343 K/mm3 (150-450); RBC Distribution Width CV 16.3 % (11.6-14.6); RBC Distribution Width SD 59.8 fl (35.1-43.9); Red Blood Count 3.55 M/mm3 (4.2-5.4); White Blood Count 8.8 K/mm3 (4.4-11.0)
--- NOTE | 2020-08-12 09:30 | RAD_ITS ---
STUDY: DIVERTICULOSIS. INCOMPLETE COLONOSCOPY. REASON FOR EXAM: Female, 74 years old. Diverticulosis sigmoid/ descending colon, non-bled ing interna hemorrhoids, only reached hepatic flex, no biopsy FLUOROSCOPY TIME (if supplied): ( 120 seconds ) minutes/seconds. 18 images were obtained. TECHNIQUE: A [employer] image was obtained. Barium was then introduced retrograde through the rectum. Imaging was obtained. COMPARISON: None. FINDINGS: On the [employer] image, there is diffuse gaseous distention of the colon. 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 Scattered calcifications in the right kidney. Diffuse sigmoid diverticulosis with no radiographic evidence of diverticulitis. There is no evidence of retrograde or antegrade obstruction to the flow of contrast. Scattered residual fecal material is seen. RAD/Barium Enema w/Air Contrast IMPRESSION: Sigmoid diverticulosis with no radiographic signs of diverticulitis. Electronically Signed: Joaquin Douglass, at 12:44 EDT , Service support ,
[2020-08-12] MEDS: Juven (unflavored) Packet 1 PACKET PO ×2 (10:42→16:56)
[2020-08-12] MEDS: Baclofen 10 MG Tablet PO ×2 (10:43→22:23)
[2020-08-12] MEDS: Tolterodine Tartrate 4 MG CAP.SA PO (10:43)
[2020-08-12] MEDS: Metoprolol Tartrate 25 MG Tablet PO ×2 (10:43→22:23)
[2020-08-12] MEDS: Ascorbic Acid 500 MG Tablet PO ×2 (10:43→16:56)
[2020-08-12] MEDS: Methenamine Hippurate 1 GM Tablet PO ×2 (10:43→22:22)
[2020-08-12] MEDS: Gabapentin 600 MG Tablet PO ×2 (10:44→22:24)
[2020-08-12] MEDS: Venlafaxine XR 150 MG Capsule PO ×2 (10:44→22:24)
[2020-08-12] MEDS: Acetaminophen 325 MG Tablet 650 MG PO (10:46)
[2020-08-12] MEDS: Menthol/Lanolin/Calamine/Znox 113 GM Tube 1 APPLIC TOPICAL ×4 (10:49→22:21)
[2020-08-12] MEDS: Nystatin Powder 15gm Bottle 1 APPLIC TOPICAL ×2 (10:50→22:22)
[2020-08-12] MEDS: Ensure Clear 120 ML Liquid PO ×2 (11:31→16:55)
[2020-08-12] MEDS: Ceftriaxone 1 GM/50 ML BAG IV (11:32)
[2020-08-12 11:46] LABS: Bedside Glucose 96 mg/dL (70-110)
--- NOTE | 2020-08-12 12:43 | PCM.PN.HOSP ---
Patient Problems: Active and Suspected Problems (Last Reviewed 08/08/20 @ 10:[address] Jose Yu MD) Anemia (Acute) MICHAELLE (acute kidney injury) (Acute) Reason for Visit: anemia Subjective: no new events. anxious to go home. Vitals/I&O's: Vital Signs Temp Pulse Resp BP Pulse Ox 36.8 C 62 16 92/50 L 98 08/12/20 10:36 08/12/20 10:43 08/12/20 10:36 08/12/20 10:36 08/12/20 10:36 Oxygen Flow Rate (L/min) 3 Oxygen Delivery Method Room Air Weight: 139.9 kg Body Mass Index (BMI) 48.3 Intake and Output for Last 24 Hours 08/10/20 08/11/20 08/12/20 23:59 23:59 23:59 Intake Total 3270 / 5270 3070 / 3070 880 / 880 Output Total 2400 / 3900 4775 / 4775 950 / 950 Balance 870 / 1370 -1705 / -1705 -70 / -70 General: Alert, No apparent distress HEENT: Atraumatic, Normocephalic Oral: Moist Mucosa, No Gingival or Mucosal Lesions/ Ulcerations Neck: No Nodes, Thyroid Normal Size and Texture Lungs: Clear to auscultation, Normal air movement, No rhonchi, No wheeze, No rales Cardiovascular: Regular rate, Regular Rhythm, Normal S1, Normal S2, No murmurs Abdomen: Bowel Sounds Present, Soft, Non Tender, Non-Distended, No Hepato-splenomegaly Extremities: No edema, No Calf Tenderness Skin: No rashes, No breakdown Psych/Mental Status: Normal Affect, Appropriate Microbiology Past 72 Hours 08/07/20 17:24 Urine, Clean Catch Urine Culture - Final Escherichia coli Providencia rettgeri Laboratory Results 08/11/20 17:06: POC Glucose 80 08/11/20 22:07: POC Glucose 111 H 08/12/20 06:37: POC Glucose 124 H 08/12/20 07:56: WBC 8.8, RBC 3.55 L, Hgb 10.2 L, Hct 35.4 L, MCV 99.7 H D, MCH 28.7, MCHC 28.8 L, RDW Std Deviation 59.8 H, RDW Coeff of Jessi 16.3 H, Plt Count 343, MPV 8.7, Immature Gran % (Auto) 0.800, Neut % (Auto) 80.7 H, Lymph % (Auto) 9.2 L, [place] % (Auto) 8.1, Eos % (Auto) 0.9, Baso % (Auto) 0.3, Absolute Neuts (auto) 7.1, Absolute Lymphs (auto) 0.81 L, Nucleated RBC % 0 08/12/20 11:37: POC Glucose 96 Current Medications Acetaminophen (Tylenol) 650 mg PO Q4H PRN PRN PRN Reason: FEVER, PAIN 1-08/22 Last Admin: 08/12/20 10:46 Dose: 650 mg Documented by: Hydrocodone Bitart/Acetaminophen ([place] 5mg-325mg) 1 tablet PO Q6H PRN PRN PRN Reason: Pain Score 1-08/22 Last Admin: 08/11/20 22:48 Dose: 1 tablet Documented by: Ascorbic [facility] (Vitamin C) [facility] Last Admin: 08/12/20 10:43 Dose: 500 mg Documented by: Baclofen (Lioresal) 20 mg PO DINNER [facility] Last Admin: 08/11/20 17:07 Dose: 20 mg Documented by: Baclofen (Lioresal) 10 mg PO BID [facility] Last Admin: 08/12/20 10:43 Dose: 10 mg Documented by: Calamine/Phenol (Calmoseptine Ointment) 1 applic TOPICAL 4X/DAY [facility]; Protocol Last Admin: 08/12/20 10:49 Dose: 1 applicatio Documented by: Diphenhydramine HCl (Benadryl) 25 mg PO QHS PRN PRN PRN Reason: INSOMNIA Duloxetine HCl (Cymbalta) 60 mg PO QHS [facility] Last Admin: 08/11/20 22:00 Dose: 60 mg Documented by: Fluconazole (Diflucan) 200 mg PO Sa@1000 [facility] Last Admin: 08/08/20 08:49 Dose: 200 mg Documented by: Gabapentin (Neurontin) 600 mg PO BID [facility] Last Admin: 08/12/20 10:44 Dose: 600 mg Documented by: Ceftriaxone Sodium (Rocephin) 1 gm in 50 mls @ 100 mls/hr IV Q24 [facility] Stop: 08/15/20 10:01 Last Infusion: 08/12/20 12:04 Dose: Infused Documented by: Pantoprazole Sodium 40 mg/ (Sodium Chloride) 110 mls @ 330 mls/hr IV Q12 [facility] Last Infusion: 08/12/20 11:32 Dose: Infused Documented by: Sodium Chloride () 250 mls @ 15 mls/hr IV .[id number] PRN PRN Reason: Additional IVPB Infusion Last Infusion: 08/12/20 12:04 Dose: 15 mls/hr Documented by: Insulin Human Lispro (Humalog Kwikpen (Bkc)) 0 unit SC ACHS [facility]; Protocol Last Admin: 08/12/20 11:38 Dose: Not Given Documented by: L-Arginine/L-Glutamine/Calcium HMB (John Packet) [facility] Last Admin: 08/12/20 10:42 Dose: 1 packet Documented by: Methenamine Hippurate (Hiprex) 1 gm PO BID [facility] Last Admin: 08/12/20 10:43 Dose: 1 gm Documented by: Metoprolol Tartrate (Lopressor (Beta Genaro)) 25 mg PO BID [facility] Last Admin: 08/12/20 10:43 Dose: 25 mg Documented by: Nitroglycerin (Nitrostat) 0.4 mg SUBLINGUAL Q5M PRN PRN Reason: CARDIAC/CHEST PAIN Nutritional Formula (Lactose Free) (Ensure Clear) 120 ml PO TIDCM [facility] Last Admin: 08/12/20 11:31 Dose: 120 ml Documented by: Nystatin (Mycostatin Powder) 1 applic TOPICAL BID [facility]; Protocol Last Admin: 08/12/20 10:50 Dose: 1 applicatio Documented by: Ondansetron HCl (Zofran) 4 mg IV Q8H PRN PRN PRN Reason: NAUSEA/VOMITING Potassium Chloride (K-Dur) 10 meq PO DAILYCM [facility] Last Admin: 08/12/20 10:43 Dose: 10 meq Documented by: Pravastatin Sodium (Pravachol) 20 mg PO QHS [facility] Last Admin: 08/11/20 22:01 Dose: 20 mg Documented by: Sodium Chloride () 10 - 40 ml IV UD PRN PRN Reason: SALINE FLUSH Last Admin: 08/08/20 17:09 Dose: 10 ml Documented by: Tolterodine Tartrate (Detrol La) 4 mg PO DAILY [facility] Last Admin: 08/12/20 10:43 Dose: 4 mg Documented by: Venlafaxine HCl (Effexor Xr) 150 mg PO BID [facility] Last Admin: 08/12/20 10:44 Dose: 150 mg Documented by: STROKE Vital Signs/Narrative: Vital Signs Temp Pulse Resp BP Pulse Ox 08/12/20 10:43 62 08/12/20 10:36 36.8 C 62 16 92/50 L 98 Medical Necessity - Tobacco Use Smoking Status: Never smoker Assessment/Plan All Active Problems (Last Reviewed 08/08/20 @ 10:[address] Jose Yu MD) Anemia (Acute) Severe sepsis (Resolved) Cellulitis of left abdominal wall (Resolved) Severe sepsis (Resolved) V tach (Resolved) MICHAELLE (acute kidney injury) (Acute) Suprapubic catheter dysfunction (Resolved) 1. Acute blood loss anemia +/- GI source FOB + colonoscopy showed diverticulosis, internal hemorrhoids. Incomplete however. Barium enema pending EGD showed erythematous mucosa in stomach stable after 2 units PRBCs likely iron-deficient unable to tolerate iron, hold off on replacement Hg up to 10.2 (up from 8 yesterday) doubt accuracy 2. MICHAELLE improved HLIV 3. GI bleed general surgery for endoscopy 4. UTI +ESBL E. coli and providencia continue CTX 5. Debility chronic. functional paraplegia plan for patient to return home with home care upon discharge 6. Chronic condition morbid obesity DM2 GERD HTN 7. VTE prophylaxis: SCDs Inpatient E&M: 06368 Subs Hosp L2
[2020-08-12] MEDS: Baclofen 10 MG Tablet 20 MG PO (16:56)
[2020-08-12 17:05] LABS: Bedside Glucose 84 mg/dL (70-110)
[2020-08-12] MEDS: Pravastatin 20 MG Tablet PO (22:24)
[2020-08-12] MEDS: DULoxetine Hcl 60 MG Capsule PO (22:24)
[2020-08-12 22:51] LABS: Bedside Glucose 103 mg/dL (70-110)
[2020-08-13 03:03] VITALS: BP 92/74; PULSE 79; RESP 18; TEMP 36.6; O2SAT 98
[2020-08-13 05:43] LABS: Absolute Lymphocyte Count 1.09 X10^3/uL (0.83-4.51); Basophil# 0.03 X10^3/uL; Basophil% 0.4 % (0-1); Eosinophil# 0.17 X10^3/uL; Eosinophils% 2.4 % (0-5); Hematocrit 28.6 % (37-47); Hemoglobin 8.1 g/dL (12.0-15.0); Lymphocyte # 1.09 X10^3/ul (4.0); Lymphocyte % 15.5 % (19-41); Mean Corp Hgb Conc 28.3 g/dL (32-36); Mean Corpuscular Hgb 24.9 pg (27.0-32.0); Mean Platelet Vol. 9.2 fl (6.2-12.0); Monocyte# 0.71 X10^3/uL; Monocyte% 10.1 % (0-10); NRBC Flagged by Analyzer 0 % (0-5); Neutrophil # 4.96 X10^3/uL (2.7-7.7); Neutrophil % 70.3 % (47-70); Platelet Count 328 K/mm3 (150-450); RBC Distribution Width CV 17.2 % (11.6-14.6); RBC Distribution Width SD 55.6 fl (35.1-43.9); Red Blood Count 3.25 M/mm3 (4.2-5.4); White Blood Count 7.1 K/mm3 (4.4-11.0)
[2020-08-13 05:58] LABS: Anion Gap 5 (5-15); BUN 35 mg/dL (7-18); Calcium,Total 8.7 mg/dL (8.5-10.1); Chloride 109 mmol/L (98-107); Creatinine, Serum 1.52 mg/dL (0.55-1.02); EST Glomerular Filtration Rate 36 mL/min (>60); Est Glom Filt Rate - Afr Amer 43 mL/min (>60); Estimated Creatinine Clearance 32.06 ml/min; Glucose 101 mg/dL (74-106); Potassium 3.5 mmol/L (3.5-5.1); Sodium Level 138 mmol/L (136-145)
[2020-08-13] MEDS: Juven (unflavored) Packet 1 PACKET PO (08:43)
[2020-08-13] MEDS: Ascorbic Acid 500 MG Tablet PO (08:43)
[2020-08-13 08:44] VITALS: PULSE 56
[2020-08-13] MEDS: Methenamine Hippurate 1 GM Tablet PO (08:44)
[2020-08-13] MEDS: Metoprolol Tartrate 25 MG Tablet PO (08:44)
[2020-08-13] MEDS: Gabapentin 600 MG Tablet PO (08:44)
[2020-08-13] MEDS: Menthol/Lanolin/Calamine/Znox 113 GM Tube 1 APPLIC TOPICAL (08:44)
[2020-08-13] MEDS: Nystatin Powder 15gm Bottle 1 APPLIC TOPICAL (08:45)
[2020-08-13] MEDS: Venlafaxine XR 150 MG Capsule PO (08:45)
[2020-08-13] MEDS: Baclofen 10 MG Tablet PO (08:45)
[2020-08-13] MEDS: Tolterodine Tartrate 4 MG CAP.SA PO (08:45)
[2020-08-13] MEDS: Ensure Clear 120 ML Liquid PO (08:49)
[2020-08-13 08:57] VITALS: BP 132/41; PULSE 56; RESP 16; TEMP 36.7; O2SAT 93
--- NOTE | 2020-08-13 09:52 | PCM.PN.SRG ---
Patient Problems: Active and Suspected Problems (Last Reviewed 08/08/20 @ 10:[address] Jose Yu MD) Anemia (Acute) MICHAELLE (acute kidney injury) (Acute) Subjective: No complaints this morning. Tolerating a diet. - Physical Exam Vitals/I&O's: Vital Signs Temp Pulse Resp BP Pulse Ox 98.1 F 56 L 16 132/41 H 93 08/13/20 08:57 08/13/20 08:57 08/13/20 08:57 08/13/20 08:57 08/13/20 08:57 Oxygen Flow Rate (L/min) 2 Oxygen Delivery Method Nasal Cannula Weight: 308 lb 6.827 oz Body Mass Index (BMI) 48.3 Intake and Output for Last 24 Hours 08/11/20 08/12/20 08/13/20 23:59 23:59 23:59 Intake Total 3070 / 3070 2521.75 / 2521.75 757.75 / 757.75 Output Total 4775 / 4775 2800 / 2800 375 / 375 Balance -1705 / -1705 -278.25 / -278.25 382.75 / 382.75 Microbiology Past 72 Hours 08/07/20 17:24 Urine, Clean Catch Urine Culture - Final Escherichia coli Providencia rettgeri Laboratory Results 08/12/20 11:37: POC Glucose 96 08/12/20 16:52: POC Glucose 84 08/12/20 22:36: POC Glucose 103 08/13/20 05:14: WBC 7.1, RBC 3.25 L, Hgb 8.1 L, Hct 28.6 L, MCV 88.0 D, MCH 24.9 L, MCHC 28.3 L, RDW Std Deviation 55.6 H, RDW Coeff of Jessi 17.2 H, Plt Count 328, MPV 9.2, Immature Gran % (Auto) 1.300 H, Neut % (Auto) 70.3 H, Lymph % (Auto) 15.5 L, [place] % (Auto) 10.1 H, Eos % (Auto) 2.4, Baso % (Auto) 0.4, Absolute Neuts (auto) 5.0, Absolute Lymphs (auto) 1.09, Nucleated RBC % 0 08/13/20 05:14: Sodium 138, Potassium 3.5, Chloride 109 H, Carbon Dioxide 24.0, Anion Gap 5, BUN 35 H, Creatinine 1.52 H, Estim Creat Clear Calc 32.06, Est GFR (MDRD) Af Amer 43 L, Est GFR (MDRD) Non-Af 36 L, BUN/Creatinine Ratio 23.0 H, Glucose 101, Calcium 8.7 Current Medications Acetaminophen (Tylenol) 650 mg PO Q4H PRN PRN PRN Reason: FEVER, PAIN -08/22 Last Admin: 08/12/20 10:46 Dose: 650 mg Documented by: Hydrocodone Bitart/Acetaminophen ([place] 5mg-325mg) 1 tablet PO Q6H PRN PRN PRN Reason: Pain Score -08/22 Last Admin: 08/11/20 22:48 Dose: 1 tablet Documented by: Ascorbic [facility]itamin C) [facility] Last Admin: 08/13/20 08:43 Dose: 500 mg Documented by: Baclofen (Lioresal) 20 mg PO DINNER [facility] Last Admin: 08/12/20 16:56 Dose: 20 mg Documented by: Baclofen (Lioresal) 10 mg PO BID [facility] Last Admin: 08/13/20 08:45 Dose: 10 mg Documented by: Calamine/Phenol (Calmoseptine Ointment) 1 applic TOPICAL 4X/DAY [facility]; Protocol Last Admin: 08/13/20 08:44 Dose: 1 applicatio Documented by: Diphenhydramine HCl (Benadryl) 25 mg PO QHS PRN PRN PRN Reason: INSOMNIA Duloxetine HCl (Cymbalta) 60 mg PO QHS [facility] Last Admin: 08/12/20 22:24 Dose: 60 mg Documented by: Fluconazole (Diflucan) 200 mg PO Sa@1000 [facility] Last Admin: 08/08/20 08:49 Dose: 200 mg Documented by: Gabapentin (Neurontin) 600 mg PO BID [facility] Last Admin: 08/13/20 08:44 Dose: 600 mg Documented by: Ceftriaxone Sodium (Rocephin) 1 gm in 50 mls @ 100 mls/hr IV Q24 [facility] Stop: 08/15/20 10:01 Last Infusion: 08/12/20 12:04 Dose: Infused Documented by: Pantoprazole Sodium 40 mg/ (Sodium Chloride) 110 mls @ 330 mls/hr IV Q12 [facility] Last Infusion: 08/13/20 09:16 Dose: Infused Documented by: Sodium Chloride () 250 mls @ 15 mls/hr IV .[id number] PRN PRN Reason: Additional IVPB Infusion Last Infusion: 08/13/20 09:16 Dose: 15 mls/hr Documented by: Insulin Human Lispro (Humalog Kwikpen (Bkc)) 0 unit SC ACHS [facility]; Protocol Last Admin: 08/13/20 06:19 Dose: Not Given Documented by: L-Arginine/L-Glutamine/Calcium HMB (John Packet) [facility] Last Admin: 08/13/20 08:43 Dose: 1 packet Documented by: Methenamine Hippurate (Hiprex) 1 gm PO BID [facility] Last Admin: 08/13/20 08:44 Dose: 1 gm Documented by: Metoprolol Tartrate (Lopressor (Beta Genaro)) 25 mg PO BID [facility] Last Admin: 08/13/20 08:44 Dose: 25 mg Documented by: Nitroglycerin (Nitrostat) 0.4 mg SUBLINGUAL Q5M PRN PRN Reason: CARDIAC/CHEST PAIN Nutritional Formula (Lactose Free) (Ensure Clear) 120 ml PO TIDCM [facility] Last Admin: 08/13/20 08:49 Dose: 120 ml Documented by: Nystatin (Mycostatin Powder) 1 applic TOPICAL BID [facility]; Protocol Last Admin: 08/13/20 08:45 Dose: 1 applicatio Documented by: Ondansetron HCl (Zofran) 4 mg IV Q8H PRN PRN PRN Reason: NAUSEA/VOMITING Potassium Chloride (K-Dur) [facility] Last Admin: 08/13/20 08:43 Dose: 10 meq Documented by: Pravastatin Sodium (Pravachol) 20 mg PO QHS [facility] Last Admin: 08/12/20 22:24 Dose: 20 mg Documented by: Sodium Chloride () 10 - 40 ml IV UD PRN PRN Reason: SALINE FLUSH Last Admin: 08/08/20 17:09 Dose: 10 ml Documented by: Tolterodine Tartrate (Detrol La) 4 mg PO DAILY [facility] Last Admin: 08/13/20 08:45 Dose: 4 mg Documented by: Venlafaxine HCl (Effexor Xr) 150 mg PO BID [facility] Last Admin: 08/13/20 08:45 Dose: 150 mg Documented by: Medical Necessity - Tobacco Use Smoking Status: Never smoker Assessment/Plan All Active Problems (Last Reviewed 08/08/20 @ 10:[address] Jose Yu MD) Anemia (Acute) Severe sepsis (Resolved) Cellulitis of left abdominal wall (Resolved) Severe sepsis (Resolved) V tach (Resolved) MICHAELLE (acute kidney injury) (Acute) Suprapubic catheter dysfunction (Resolved) Barium enema did not show any lesions within the cecum or ascending colon stable from an endoscopy standpoint.
--- NOTE | 2020-08-13 09:59 | PCM.DC ---
- Discharge Diagnoses Current Active Problems: Current Active and Chronic Problems (Last Reviewed 08/08/20 @ 10:[address] 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 MICHAELLE (acute kidney injury) (Acute) Candidal intertrigo (Chronic) You will use the following diet at home:: Regular Your food should be the consistency of: Regular Discharge Activity: Return to Normal Activity Call your doctor if you observe: Fever of 101 or Higher, Shortness of breath Allergies/Adverse Reactions: Allergies adhesive tape Allergy (Verified 08/07/20 15:42) blisters Influenza Virus Vaccines Allergy (Verified 08/07/20 15:42) shortness of breath/severe wheezing iron Allergy (Verified 08/07/20 15:42) from IV form chest pressure and heart palpitations Sulfa (Sulfonamide Antibiotics) Allergy (Verified 08/07/20 15:42) Shortness of breath bactrim does not work for her-per pcp paperwork meloxicam [From Mobic] Adverse Reaction (Verified 08/07/20 15:42) gi upset seasonal allergies Allergy (Uncoded 08/07/20 15:42) Other Medications to take at Discharge Furosemide [Lasix] 20 mg PO BID 09/30/13 Albuterol Inhaler [Ventolin Hfa] 2 puff INHALATION Q4H PRN PRN 10/30/18 Gabapentin [Neurontin] 600 mg PO BID 10/30/18 Nystatin Powder [Mycostatin Powder] 1 applicatio TOPICAL BID PRN PRN 10/30/18 Oxybutynin Chloride [Ditropan Xl] 15 mg PO DAILY 10/30/18 Cyanocobalamin (Vitamin B-12) [B-12] 1,000 mcg PO DAILY 12/17/18 Pravastatin [Pravachol] 20 mg PO QHS 12/17/18 Duloxetine HCl 60 mg PO QHS 03/22/19 Fluconazole 200 mg PO SA 07/02/19 Hydrocodone Bitart/Apap 5-325 [[place]acoima 5/325] 1 tab PO Q6H PRN PRN 07/02/19 Venlafaxine XR [Effexor Xr] 150 mg PO BID 07/02/19 Ascorbic Acid [Vitamin C] 500 mg PO BID 08/18/19 DiphenhydrAMINE [Benadryl] 20 mg PO BID PRN PRN 08/18/19 Pantoprazole Sodium [Protonix] 40 mg PO DAILY 08/18/19 Potassium Chloride [K-Dur] 10 meq PO DAILYCM 08/18/19 C,E,Zinc,Copper 11/Yplvt6z/Lut [Eye Health Adult 50 Plus Sftgl] 1 ea PO TID 10/19/19 Cholecalciferol (VIT D3) [Vitamin D3] 1,000 unit PO DAILY 10/19/19 L.acidoph,Paracasei, B.lactis [Probiotic] 1 ea PO DAILY PRN PRN 10/19/19 Ranitidine [Zantac] 150 mg PO DAILY PRN PRN 10/19/19 Baclofen 20 mg PO DINNER 03/20/20 Baclofen [Lioresal] 10 mg PO BID 03/20/20 Citric AC/Gluconolact/Mag Carb [Renacidin Irrigation Solution] 30 ml IR TID 08/07/20 Metoprolol Tartrate 25 mg PO BID 08/07/20 Amoxicillin/Potassium Clav [Augmentin 875-125 Tablet] 1 ea PO BID #4 tab 08/13/20 Aspirin [Aspirin, Baby] 81 mg PO DAILY #0 [facility] heart health 08/13/20 Ciprofloxacin 250 mg PO BID #4 ml 08/13/20 John (unflavored) [John Packet] 1 packet PO BIDCM #60 packet 08/13/20 Methenamine Hippurate [Hiprex] 1 gm PO BID #0 08/13/20 The following prescriptions were given: Amoxicillin/Potassium Clav [Augmentin 875-125 Tablet] 1 ea PO BID #4 tab Transmission Status: Pending to [facility] Ciprofloxacin 250 mg PO BID #4 ml Transmission Status: Pending to [facility] John (unflavored) [John Packet] 1 packet PO BIDCM #60 packet Transmission Status: Pending to [facility] Primary Care Physician: Colby Valenzuela DO [Primary Care Provider] - Within 1 Week Test Results: Test results from this visit will be discussed in further detail at your follow-up appointment, if applicable. Please Follow Up With: Rosa Maria Dumont DO When: 08/23/2020, already scheduled Proposed Discharge Date: 08/13/20
--- NOTE | 2020-08-13 10:01 | PCM.DC.SUM ---
Discharge Date and Diagnosis - Problem List Patient Problems: Active and Suspected Problems (Last Reviewed 08/08/20 @ 10:[address] Jose Yu MD) Anemia (Acute) MICHAELLE (acute kidney injury) (Acute) Date of Admission: 08/07/20 Date of Discharge: 08/13/20 - Primary Discharge Diagnosis Acute Problems: Active Problems (Last Reviewed 08/08/20 @ 10:[address] Jose Yu MD) 1. Acute blood loss anemia +/- GI source FOB + colonoscopy showed diverticulosis, internal hemorrhoids. Incomplete however. Barium enema unremarkable. EGD showed erythematous mucosa in stomach stable after 2 units PRBCs likely iron-deficient unable to tolerate iron, hold off on replacement The Hg of 10.2 was a lab error, as today's labs are stable from the day before. 2. MICHAELLE improved suspect prerenal 3. GI bleed work unremarkable 4. UTI +ESBL E. coli and providencia on CTX for 5 days, continue 2 more days of abx with amoxicillin/CA and cipro. Patient with allergy to sulfa, so no TMP/SM - Secondary Discharge Diagnosis Chronic Problems: Chronic Problems (Last Reviewed 08/08/20 @ 10:[address] Jose Yu MD) Wheelchair dependence (Chronic) History of atrial fibrillation (Chronic) Ulcer of abdomen wall with fat layer exposed (Chronic) Ulcer of left groin with fat layer exposed (Chronic) Pressure ulcer of coccygeal region, stage 3 (Chronic) Morbid obesity (Chronic) Anxiety and depression (Chronic) HLD (hyperlipidemia) (Chronic) UTI (urinary tract infection) due to urinary indwelling catheter (Chronic) Chronic gram negative bacteria Debility (Chronic) Depression (Chronic) VITA (obstructive sleep apnea) (Chronic) Candidal intertrigo (Chronic) debility malnutrition, moderate. Hospital Course and Treatment Imaging Results: Clinical Impression(s) from Imaging Studies Chest X-Ray 08/07/20 16:15 IMPRESSION: Nonspecific right basilar opacity may be secondary to underlying atelectasis and/or pneumonia. Electronically Signed: Idalia Sales MD at 16:52 EDT Tel , Service support , Barium Enema w/ Air Contrast, therapeutic 08/12/20 09:30 IMPRESSION: Sigmoid diverticulosis with no radiographic signs of diverticulitis. Electronically Signed: Joaquin Douglass, at 12:44 EDT , Service support , Consultations 08/07/20 22:41 Consult: Onc/Wound/salt maker Routine Comment: Gigi, general surgery Operations: None Procedures: Colonoscopy - Impression: - Diverticulosis in the sigmoid colon and in the descending colon. No specimens collected. - Non-bleeding internal hemorrhoids. - The examination was otherwise normal. However I was unable to reach the cecum nor was I able to even see the cecum since I was only able to get to the hepatic flexure. Despite numerous attempts at repositioning the patient and increasing the sedation I was unable to advance any further., EGD - Impression: - Normal esophagus. - Erythematous mucosa in the prepyloric region of the stomach. Biopsied. - Normal examined duodenum. Summary of Care Provided: The patient is a 74 year old F presents with weakness. Patient was found to have a UTI, anemia, acute kidney injury. Anemia, she was transfused 2 units packed red blood cells. She underwent endoscopy with an EGD and colonoscopy that showed no acute source of bleeding. Patient did have barium enema and the colonoscopy was incomplete but did not show any evidence of diverticulitis. Patient's hemoglobin remained stable though low. Patient has a known allergy to iron so she was not placed on iron supplements. For UTI, patient graduated from organisms with that ESBL E. coli as well as providencia. Is on ceftriaxone here will be discharged with Augmentin and for Floxin upon discharge. Both organisms were sensitive to Bactrim, however patient has known sulfa allergy. Question of this is actually true allergies patient states that she gets short of breath when she takes it but given patient's poor performance status would not take any chances. [] Patient Problems: Active and Suspected Problems (Last Reviewed 08/08/20 @ 10:[address] Jose Yu MD) Anemia (Acute) MICHAELLE (acute kidney injury) (Acute) - Physical Exam Vitals/I&O's: Vital Signs Temp Pulse Resp BP Pulse Ox 36.7 C 56 L 16 132/41 H 93 08/13/20 08:57 08/13/20 08:57 08/13/20 08:57 08/13/20 08:57 08/13/20 08:57 Oxygen Flow Rate (L/min) 2 Oxygen Delivery Method Nasal Cannula Weight: 139.9 kg Body Mass Index (BMI) 48.3 Intake and Output for Last 24 Hours 08/11/20 08/12/20 08/13/20 23:59 23:59 23:59 Intake Total 3070 / 3070 2521.75 / 2521.75 757.75 / 757.75 Output Total 4775 / 4775 2800 / 2800 375 / 375 Balance -1705 / -1705 -278.25 / -278.25 382.75 / 382.75 General: Alert, No apparent distress HEENT: Atraumatic, Normocephalic Oral: Moist Mucosa, No Gingival or Mucosal Lesions/ Ulcerations Neck: No Nodes, Trachea Midline, Thyroid Normal Size and Texture Lungs: Clear to auscultation, Normal air movement, No rhonchi, No wheeze Cardiovascular: Regular rate, Regular Rhythm, Normal S1, Normal S2 Abdomen: Bowel Sounds Present, Soft, Non Tender, Non-Distended, Obese Microbiology Past 72 Hours 08/07/20 17:24 Urine, Clean Catch Urine Culture - Final Escherichia coli Providencia rettgeri Laboratory Results 08/12/20 11:37: POC Glucose 96 08/12/20 16:52: POC Glucose 84 08/12/20 22:36: POC Glucose 103 08/13/20 05:14: WBC 7.1, RBC 3.25 L, Hgb 8.1 L, Hct 28.6 L, MCV 88.0 D, MCH 24.9 L, MCHC 28.3 L, RDW Std Deviation 55.6 H, RDW Coeff of Jessi 17.2 H, Plt Count 328, MPV 9.2, Immature Gran % (Auto) 1.300 H, Neut % (Auto) 70.3 H, Lymph % (Auto) 15.5 L, [place] % (Auto) 10.1 H, Eos % (Auto) 2.4, Baso % (Auto) 0.4, Absolute Neuts (auto) 5.0, Absolute Lymphs (auto) 1.09, Nucleated RBC % 0 08/13/20 05:14: Sodium 138, Potassium 3.5, Chloride 109 H, Carbon Dioxide 24.0, Anion Gap 5, BUN 35 H, Creatinine 1.52 H, Estim Creat Clear Calc 32.06, Est GFR (MDRD) Af Amer 43 L, Est GFR (MDRD) Non-Af 36 L, BUN/Creatinine Ratio 23.0 H, Glucose 101, Calcium 8.7 Current Medications Acetaminophen (Tylenol) 650 mg PO Q4H PRN PRN PRN Reason: FEVER, PAIN -08/22 Last Admin: 08/12/20 10:46 Dose: 650 mg Documented by: Hydrocodone Bitart/Acetaminophen ([place] 5mg-325mg) 1 tablet PO Q6H PRN PRN PRN Reason: Pain Score -08/22 Last Admin: 08/11/20 22:48 Dose: 1 tablet Documented by: Ascorbic Acid (Vitamin C) 500 mg PO BIDCM [facility] Last Admin: 08/13/20 08:43 Dose: 500 mg Documented by: Baclofen (Lioresal) 20 mg PO DINNER [facility] Last Admin: 08/12/20 16:56 Dose: 20 mg Documented by: Baclofen (Lioresal) 10 mg PO BID [facility] Last Admin: 08/13/20 08:45 Dose: 10 mg Documented by: Calamine/Phenol (Calmoseptine Ointment) 1 applic TOPICAL 4X/DAY [facility]; Protocol Last Admin: 08/13/20 08:44 Dose: 1 applicatio Documented by: Diphenhydramine HCl (Benadryl) 25 mg PO QHS PRN PRN PRN Reason: INSOMNIA Duloxetine HCl (Cymbalta) 60 mg PO QHS [facility] Last Admin: 08/12/20 22:24 Dose: 60 mg Documented by: Fluconazole (Diflucan) 200 mg PO Sa@1000 [facility] Last Admin: 08/08/20 08:49 Dose: 200 mg Documented by: Gabapentin (Neurontin) 600 mg PO BID [facility] Last Admin: 08/13/20 08:44 Dose: 600 mg Documented by: Ceftriaxone Sodium (Rocephin) 1 gm in 50 mls @ 100 mls/hr IV Q24 [facility] Stop: 08/15/20 10:01 Last Infusion: 08/12/20 12:04 Dose: Infused Documented by: Pantoprazole Sodium 40 mg/ (Sodium Chloride) 110 mls @ 330 mls/hr IV Q12 [facility] Last Infusion: 08/13/20 09:16 Dose: Infused Documented by: Sodium Chloride () 250 mls @ 15 mls/hr IV .[id number] PRN PRN Reason: Additional IVPB Infusion Last Infusion: 08/13/20 09:16 Dose: 15 mls/hr Documented by: Insulin Human Lispro (Humalog Kwikpen (Bkc)) 0 unit SC ACHS [facility]; Protocol Last Admin: 08/13/20 06:19 Dose: Not Given Documented by: L-Arginine/L-Glutamine/Calcium HMB ([facility]) [facility] Last Admin: 08/13/20 08:43 Dose: 1 packet Documented by: Methenamine Hippurate (Hiprex) 1 gm PO BID [facility] Last Admin: 08/13/20 08:44 Dose: 1 gm Documented by: Metoprolol Tartrate (Lopressor (Beta Genaro)) 25 mg PO BID [facility] Last Admin: 08/13/20 08:44 Dose: 25 mg Documented by: Nitroglycerin (Nitrostat) 0.4 mg SUBLINGUAL Q5M PRN PRN Reason: CARDIAC/CHEST PAIN Nutritional Formula (Lactose Free) (Ensure Clear) 120 ml PO TIDCM [facility] Last Admin: 08/13/20 08:49 Dose: 120 ml Documented by: Nystatin (Mycostatin Powder) 1 applic TOPICAL BID [facility]; Protocol Last Admin: 08/13/20 08:45 Dose: 1 applicatio Documented by: Ondansetron HCl (Zofran) 4 mg IV Q8H PRN PRN PRN Reason: NAUSEA/VOMITING Potassium Chloride (K[facility]Dur) [facility] Last Admin: 08/13/20 08:43 Dose: 10 meq Documented by: Pravastatin Sodium (Pravachol) 20 mg PO QHS [facility] Last Admin: 08/12/20 22:24 Dose: 20 mg Documented by: Sodium Chloride () 10 - 40 ml IV UD PRN PRN Reason: SALINE FLUSH Last Admin: 08/08/20 17:09 Dose: 10 ml Documented by: Tolterodine Tartrate (Detrol La) 4 mg PO DAILY [facility] Last Admin: 08/13/20 08:45 Dose: 4 mg Documented by: Venlafaxine HCl (Effexor Xr) 150 mg PO BID [facility] Last Admin: 10/01/20 08:45 Dose: 150 mg Documented by: Discharge Activity: Return to Normal Activity Call your doctor if you observe: Fever of 101 or Higher, Shortness of breath Home Medications: Medications to take at Discharge Furosemide [Lasix] 20 mg PO BID 09/30/13 Albuterol Inhaler [Ventolin Hfa] 2 puff INHALATION Q4H PRN PRN 10/30/18 Gabapentin [Neurontin] 600 mg PO BID 10/30/18 Nystatin Powder [Mycostatin Powder] 1 applicatio TOPICAL BID PRN PRN 10/30/18 Oxybutynin Chloride [Ditropan Xl] 15 mg PO DAILY 10/30/18 Cyanocobalamin (Vitamin B-12) [B-12] 1,000 mcg PO DAILY 12/17/18 Pravastatin [Pravachol] 20 mg PO QHS 12/17/18 Duloxetine HCl 60 mg PO QHS 03/22/19 Fluconazole 200 mg PO SA 07/02/19 Hydrocodone Bitart/Apap 5-325 [[place] 5/325] 1 tab PO Q6H PRN PRN 07/02/19 Venlafaxine XR [Effexor Xr] 150 mg PO BID 07/02/19 Ascorbic Acid [Vitamin C] 500 mg PO BID 08/18/19 DiphenhydrAMINE [Benadryl] 20 mg PO BID PRN PRN 08/18/19 Pantoprazole Sodium [Protonix] 40 mg PO DAILY 08/18/19 Potassium Chloride [K-Dur] 10 meq PO DAILYCM 08/18/19 C,E,Zinc,Copper 11/Xwtbj7y/Lut [Eye Health Adult 50 Plus Sftgl] 1 ea PO TID 10/19/19 Cholecalciferol (VIT D3) [Vitamin D3] 1,000 unit PO DAILY 10/19/19 L.acidoph,Paracasei, B.lactis [Probiotic] 1 ea PO DAILY PRN PRN 10/19/19 Ranitidine [Zantac] 150 mg PO DAILY PRN PRN 10/19/19 Baclofen 20 mg PO DINNER 03/20/20 Baclofen [Lioresal] 10 mg PO BID 03/20/20 Citric AC/Gluconolact/Mag Carb [Renacidin Irrigation Solution] 30 ml IR TID 08/07/20 Metoprolol Tartrate 25 mg PO BID 08/07/20 Amoxicillin/Potassium Clav [Augmentin 875-125 Tablet] 1 ea PO BID #4 tab 08/13/20 Aspirin [Aspirin, Baby] 81 mg PO DAILY #0 [facility] 08/13/20 Ciprofloxacin 250 mg PO BID #4 ml 08/13/20 John (unflavored) [John Packet] 1 packet PO BIDCM #60 packet 08/13/20 Methenamine Hippurate [Hiprex] 1 gm PO BID #0 08/13/20 Following Prescriptions Were Given to Patient: Amoxicillin/Potassium Clav [Augmentin 875-125 Tablet] 1 ea PO BID #4 tab Transmission Status: Pending to [facility] Ciprofloxacin 250 mg PO BID #4 ml Transmission Status: Pending to [facility] John (unflavored) [John Packet] 1 packet PO BIDCM #60 packet Transmission Status: Pending to [facility] Primary Care Physician: Colby Valenzuela DO [Primary Care Provider] - Within 1 Week Please Follow Up With: Rosa Maria Dumont DO When: 08/23/2020, already scheduled Disposition: Home with Home Health Minutes spent on discharge:: 40 Patient Condition:: Good Medical Necessity - Tobacco Use Smoking Status: Current every day smoker Meaningful Use Info Meaningful Use Diagnoses (Choose all that apply): None applicable Inpatient E&M: 50691 Disch Hosp
[2020-08-13] MEDS: Ceftriaxone 1 GM/50 ML BAG IV (10:03)
[2020-08-13 12:11] LABS: Bedside Glucose 128 mg/dL (70-110)
[2020-08-14 00:10] LABS: Bedside Glucose 115 mg/dL (70-110)
--- NOTE | 2020-08-14 11:30 | CASEMGMT ---
TONI DC PHONE CALL DC DATE: 08/13/2020 DC DISPOSITION: Home with [facility] DC DIAGNOSIS: UTI, anemia LACE/STRATA: 10/15 F/U APPTS MADE PRIOR TO DC: yes Attempted call to patient. No answer and messaging had no name identifier. Call to [facility] and they have been in contact with patient and will open case tomorrow. Alec CHUA RN AC
== END 2020-08-13 12:10 | disposition home health service (06) | DRG 698 ==
LOC: ED 18:46 → MS3 18:47
PROVIDERS: Anesthesiology; Family Medicine; Surgery; Admitting Provider Student in an Organized Health Care Education/Training Program; Emergency Provider Physician Assistant Medical; PCP Family Medicine
PROC: 0DJD8ZZ Inspection of Lower Intestinal Tract, Via Natural or Artificial Opening Endoscopic (ICD-10-PCS; CPT 45378; principal; 2020-08-11 13:25)
DX: T83.518A Infection and inflammatory reaction due to other urinary catheter, initial encounter (principal); L89.153 Pressure ulcer of sacral region, stage 3; N39.0 Urinary tract infection, site not specified; N17.9 Acute kidney failure, unspecified; K92.1 Melena; Z68.42 Body mass index [BMI] 45.0-49.9, adult; B96.20 Unspecified Escherichia coli [E. coli] as the cause of diseases classified elsewhere; B96.89 Other specified bacterial agents as the cause of diseases classified elsewhere; R31.9 Hematuria, unspecified; B37.2 Candidiasis of skin and nail; I12.9 Hypertensive chronic kidney disease with stage 1 through stage 4 chronic kidney disease, or unspecified chronic kidney disease; E11.22 Type 2 diabetes mellitus with diabetic chronic kidney disease; N18.30 Chronic kidney disease, stage 3 unspecified; I48.0 Paroxysmal atrial fibrillation; E78.5 Hyperlipidemia, unspecified; E86.0 Dehydration; K21.9 Gastro-esophageal reflux disease without esophagitis; K31.89 Other diseases of stomach and duodenum; K57.30 Diverticulosis of large intestine without perforation or abscess without bleeding; K64.8 Other hemorrhoids; Y84.6 Urinary catheterization as the cause of abnormal reaction of the patient, or of later complication, without mention of misadventure at the time of the procedure; J45.909 Unspecified asthma, uncomplicated; F44.4 Conversion disorder with motor symptom or deficit; N31.9 Neuromuscular dysfunction of bladder, unspecified; R53.81 Other malaise; D50.0 Iron deficiency anemia secondary to blood loss (chronic); F31.9 Bipolar disorder, unspecified; F41.9 Anxiety disorder, unspecified; G47.33 Obstructive sleep apnea (adult) (pediatric); E66.01 Morbid (severe) obesity due to excess calories; M48.00 Spinal stenosis, site unspecified; Z87.891 Personal history of nicotine dependence; Z79.82 Long term (current) use of aspirin; Z79.84 Long term (current) use of oral hypoglycemic drugs; Z79.899 Other long term (current) drug therapy; Z87.440 Personal history of urinary (tract) infections; Z90.710 Acquired absence of both cervix and uterus; Z93.59 Other cystostomy status; Z99.3 Dependence on wheelchair
CPT/HCPCS: 36415; 71045; 74280; 80048; 80053; 81001; 82274; 82728; 82962; 83036; 83540; 83550; 83735; 85014; 85018; 85025; 85610; 85730; 86850; 86900; 86901; 86920; 86922; 87077; 87086; 87088; 87186; 88305; 88342; 93005; 97110; 97162; 97166; 97530; 97535; 97803; 99285; J7030; J7040; J7050; P9016; A4216; J1940

== ENCOUNTER → 2020-09-01 13:24 | Outpatient (CLI) | payer MEDICARE, OTHER, SELFPAY ==
[2020-08-07 19:40] VITALS: BMI 48.3
[2020-08-21 11:10] VITALS: BMI 48.3
[2020-09-01 14:40] LABS: Hematocrit 31.4 % (37-47); Hemoglobin 8.6 g/dL (12.0-15.0)
== END ==
PROVIDERS: PCP Family Medicine; Referring Provider Family Medicine; Visit Provider Family Medicine
DX: D50.9 Iron deficiency anemia, unspecified (principal); E11.22 Type 2 diabetes mellitus with diabetic chronic kidney disease; N18.31 Chronic kidney disease, stage 3a
CPT/HCPCS: 36415; 85014; 85018

== ENCOUNTER 2020-09-04 11:00 | Outpatient (RCR) | payer MEDICARE, OTHER, SELFPAY ==
[2020-08-13 00:27] VITALS: BP 113/43; PULSE 83; RESP 18; TEMP 36.2
[2020-08-21 11:10] VITALS: BP 125/62; PULSE 84; RESP 18; TEMP 36.1; BMI 48.3
[2020-08-21 11:49] VITALS: BP 138/66; PULSE 94; RESP 16
--- NOTE | 2020-08-21 15:14 | PN.PCM_ITS ---
(1) Pressure ulcer of left thigh Status: Acute Current Visit: Yes Qualifiers: Pressure injury stage: stage 2 Qualified Code(s): L89.222 - Pressure ulcer of left hip, stage 2 Code(s): L89.229 - Pressure ulcer of left hip, unspecified stage (2) Ulcer of abdomen wall with fat layer exposed Status: Chronic Current Visit: Yes Code(s): L98.492 - Non-pressure chronic ulcer of skin of other sites with fat layer exposed (3) Ulcer of left groin with fat layer exposed Status: Chronic Current Visit: Yes Code(s): L98.492 - Non-pressure chronic ulcer of skin of other sites with fat layer exposed (4) Candidal intertrigo Status: Chronic Current Visit: Yes Code(s): B37.2 - Candidiasis of skin and nail (5) Morbid obesity Status: Chronic Current Visit: No Code(s): E66.01 - Morbid (severe) obesity due to excess calories Type of Wound Date of Service: 08/21/20 Chief Complaint: ulcers of left groin and abdomen, pressure ulcer of coccyx History of Wound: Samra is a 74 yo woman who presented to the wound center for ulcers of left groin and abdomen referred by wound nurse at [facility]. She was hospitalized at [facility] for urosepsis multiple times. She was on IV antibiotics of M eropenem and Vancomycin. She is morbidly obese and has problems with candidal intertrigo and has ulcers that open frequently for several years. She was using towels to keep moisture from accumulating under her skin folds but this has been ineffective. She started using InstaDry sheets since discharge from the hospital which has improved the moisture in her folds. She has been using nystatin powder as well. She had been using bacitracin to the ulcer of her abdomen. She has an indwelling suprapubic catheter that is changed monthly. She has heavy drainage from her ulcers. She is wheelchair bound and has an aid that helps her daily for a few hours per day. She denies fever or chills. In May 2019, she reports that she has a chronic ulcer of her coccyx area that was previously surgically debri ded that comes and goes and has gotten worse since she was in the [facility] in early 2018. Progress of Wound: Samar is here for follow up of ulcers of her left groin and coccyx. She is tolerating Fibracol dressings to left groin and abdomen. She uses ABD pads and a pillowcase to wick away moisture from her inguinal folds. She has had improvement in erythema but increased size due to increased perspiration. She has had increase in pain to coccyx ulcer but this has decreased in size. She has heavy drainage from the ulcers of her left groin. She is tolerating fibracol to her coccyx ulcer and has moderate to heavy drainage from this ulcer. Her mid-abdomen ulcer remains healed. She has a new ulcer to her left posterior thigh, which she reports onset approximately 2 weeks ago. She feels this occurred while hospitalized, from shearing force of repositioning and transferring, and continued pressure. She has been using Fibracol to the new left posterior thigh ulcer for the last few days. She denies fever or chills, nausea, vomiting, or diarrhea. 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 - Physical Exam Vital Signs Temp Pulse Resp BP 97 F L 94 16 138/66 H 08/21/20 11:10 08/21/20 11:49 08/21/20 11:49 08/21/20 11:49 General: Alert, Cooperative, No apparent distress HEENT: Atraumatic, Normocephalic Oral: Moist Mucosa Lungs: Normal air movement Abdomen: Obese Extremities: Capillary Refill Less than 3 Seconds Skin: Ulcer/ Wound Wound Measurements and Assessment WC - Nurse 1 - General Ulcer Measurement Start: 08/14/20 11:19 Freq: Status: Active Protocol: Activity Type Activity Date Activity User E-Sign Co-Sign Detail Recorded Client Recorded Date Recorded By Document 08/21/20 11:10 [id number] 08/21/20 11:22 RB 08/21/20 11:10 Wound Center Nurse 1 [Ulcer Assessment] #4 L Posterior Thigh -Combined with other wound No -Current Size (cm) - Length 1 -Current Size (cm) - Width 3 -Current Size (cm) - Depth 0.3 -Total Square Cm 3 -Tunneling No -Undermining/Tunneling No -Circular Undermining No -Exudate Amt Small -Exudate Type Serosanguineous -Wound Margin Flat & Intact -Granulation Amt Medium (34-66%) -Granulation Quality Red -Slough/Fibrin Yes -Necrosis Amt Small (1-33%) -Necrotic Tissue Type Necrosis of Bone -Structure Exposed N/A -Texture (Jessica-wound Skin Appearance) Excoriation -Moisture (Jessica-wound Skin Appearance Weeping ) -Color (Jessica-wound Skin Appearance) Assessed -Temperature (Jessica-wound Skin No Abnormality Appearance) (Pt Warm) -Tenderness on Palpation (Jessica-wound No Skin Appearance) -Ulcer Cleansing Wound Cleanser -Foul Odor after Cleansing No -Anesthetic Used 5% Lidocaine Gel #3 Coccyx -Combined with other wound No -Current Size (cm) - Length 1.1 -Current Size (cm) - Width 3.2 -Current Size (cm) - Depth 0.6 -Total Square Cm 3.52 -Tunneling No -Undermining/Tunneling No -Circular Undermining No -Exudate Amt Small -Exudate Type Serosanguineous -Wound Margin Thickened -Granulation Amt Medium (34-66%) -Granulation Quality [place] -Slough/Fibrin Yes -Necrosis Amt Small (1-33%) -Necrotic Tissue Type Adherent Slough -Structure Exposed N/A -Texture (Jessica-wound Skin Appearance) Scarring -Moisture (Jessica-wound Skin Appearance Assessed ) -Color (Jessica-wound Skin Appearance) Assessed -Temperature (Jessica-wound Skin No Abnormality Appearance) (Pt Warm) -Tenderness on Palpation (Jessica-wound No Skin Appearance) -Ulcer Cleansing Wound Cleanser -Foul Odor after Cleansing No -Anesthetic Used 4% Lidocaine Solution #1 left abd fold cluster -Combined with other wound No -Current Size (cm) - Length 5.5 -Current Size (cm) - Width 13 -Current Size (cm) - Depth 0.1 -Total Square Cm 71.5 -Tunneling No -Undermining/Tunneling No -Circular Undermining No -Exudate Amt Medium -Exudate Type Serosanguineous -Wound Margin Flat & Intact -Granulation Amt Medium (34-66%) -Granulation Quality [place] -Slough/Fibrin Yes -Necrosis Amt Small (1-33%) -Necrotic Tissue Type Adherent Slough -Structure Exposed N/A -Texture (Jessica-wound Skin Appearance) Assessed, Excoriation -Moisture (Jessica-wound Skin Appearance Assessed ) -Color (Jessica-wound Skin Appearance) Assessed -Temperature (Jessica-wound Skin No Abnormality Appearance) (Pt Warm) -Tenderness on Palpation (Jessica-wound No Skin Appearance) -Ulcer Cleansing Wound Cleanser -Foul Odor after Cleansing No -Anesthetic Used 4% Lidocaine Solution WC - Nurse 2 - General Ulcer CM Notes Start: 08/14/20 11:19 Freq: Status: Active Protocol: Activity Type Activity Date Activity User E-Sign Co-Sign Detail Recorded Client Recorded Date Recorded By Document 08/21/20 14:22 PL [id number] 08/21/20 14:26 PL 08/21/20 14:22 Wound Center Nurse 2 [Procedure/Treatment] #4 L Posterior Thigh -Time 11:30 -Correct Patient Yes -Correct Side, Site, Position Yes -Correct Procedure Yes -Procedure Performed Yes -Type of Procedure Debridement -Clinical Debridement Subcutaneous -Tissue Removed Subcutaneous -Post Debridement (cm) - Length 3.5 -Post Debridement (cm) - Width 3.0 -Post Debridement (cm) - Depth 0.1 -Total Square (Post) (cm) 10.50 -Area of Debridement (cm) - Length 3.5 -Area of Debridement (cm) - Width 3.0 -Total Square (Area) (cm) 10.50 -Tunneling No -Undermining/Tunneling No -Circular Undermining No -Wound/Ulcer Outcome Not Healed -Ulcer Cleansing Rinsed/ Irrigated with Saline -Foul Odor after Cleansing No -Bioengineered Tissue No -Bleeding Controlled with Pressure -Treatment Response Procedure Tolerated Well -Debridement - Subq, 1st 20sq cm No #3 Coccyx -Time 11:35 -Correct Patient Yes -Correct Side, Site, Position Yes -Correct Procedure Yes -Procedure Performed Yes -Type of Procedure Debridement -Clinical Debridement Subcutaneous -Tissue Removed Subcutaneous -Post Debridement (cm) - Length 2.5 -Post Debridement (cm) - Width 3.0 -Post Debridement (cm) - Depth 0.8 -Total Square (Post) (cm) 7.50 -Area of Debridement (cm) - Length 2.5 -Area of Debridement (cm) - Width 3.0 -Total Square (Area) (cm) 7.50 -Tunneling No -Undermining/Tunneling No -Circular Undermining No -Wound/Ulcer Outcome Not Healed -Ulcer Cleansing Rinsed/ Irrigated with Saline -Foul Odor after Cleansing No -Bioengineered Tissue No -Bleeding Controlled with Pressure -Treatment Response Procedure Tolerated Well -Debridement - Subq, 1st 20sq cm No #1 left abd fold cluster -Time 11:33 -Correct Patient Yes -Correct Side, Site, Position Yes -Correct Procedure Yes -Procedure Performed Yes -Type of Procedure Debridement -Clinical Debridement Subcutaneous -Tissue Removed Subcutaneous -Post Debridement (cm) - Length 6 -Post Debridement (cm) - Width 17.5 -Post Debridement (cm) - Depth 0.1 -Total Square (Post) (cm) 105.0 -Area of Debridement (cm) - Length 6 -Area of Debridement (cm) - Width 17.5 -Total Square (Area) (cm) 105.0 -Tunneling No -Undermining/Tunneling No -Circular Undermining No -Wound/Ulcer Outcome Not Healed -Ulcer Cleansing Rinsed/ Irrigated with Saline -Foul Odor after Cleansing No -Bioengineered Tissue No -Debridement - Subq, 1st 20sq cm Yes -Debridement, SubQ, ea addt'l 20sq cm 5 or part thereof [See Physician Procedure note for Specifics] Pain Scale: 0-10 Numeric [Pain] -Is Patient Pain Free? Yes WC - Nurse 3 - General Ulcer D/C NN Start: 08/14/20 11:19 Freq: Status: Active Protocol: Activity Type Activity Date Activity User E-Sign Co-Sign Detail Recorded Client Recorded Date Recorded By Document 08/21/20 11:49 [facility] [id number] 08/21/20 11:51 [facility] 08/21/20 11:49 Wound Care Nurse 3 [Wound Dressing] #4 L Posterior Thigh -Ulcer Cleansing Rinsed/ Irrigated with Saline -Foul Odor after Cleansing No -Primary Dressing Applied Fibracol Plus 4x4 -Primary Dressing Covered/Secured Secured with with Tape,Other -Other Covering ABD -Fibracol Plus 4x4 1 #3 Coccyx -Ulcer Cleansing Rinsed/ Irrigated with Saline -Foul Odor after Cleansing No -Primary Dressing Applied Fibracol Plus 4x4 -Primary Dressing Covered/Secured Secured with with Tape,Other -Other Covering ABD -Fibracol Plus 4x4 0 #1 left abd fold cluster -Ulcer Cleansing Rinsed/ Irrigated with Saline -Foul Odor after Cleansing No -Primary Dressing Applied Fibracol Plus 4x4,Other -Primary Dressing Covered/Secured Secured with with Tape,Other -Other Covering ABD -Fibracol Plus 4x4 0 [Post Procedure Tolerated] -Treatment Response Procedure Tolerated Well Vital Signs [Pulse] -Pulse Rate (60-100) 94 -Pulse Location Monitor [Respirations] -Respiratory Rate (12-18) 16 -Respiratory rate source Observation -Oxygen Delivery Method Room Air [Blood Pressure] -Blood Pressure (90/60-120/80) 138/66 H -Blood Pressure Mean (mm Hg) 90 -Source Monitor -Position Sitting -Blood Pressure Location Left Forearm Pain Scale: 0-10 Numeric [Pain] -Is Patient Pain Free? Yes WC - Visit Discharge [Visit Discharge Information] -Discharge Condition Stable -Ambulatory Status Wheelchair Psych/Mental Status: Normal Affect, Appropriate Debridement Note Post-Debridement Measurements/Treatment WC - Nurse 2 - General Ulcer CM Notes Start: 08/14/20 11:19 Freq: Status: Active Protocol: Activity Type Activity Date Activity User E-Sign Co-Sign Detail Recorded Client Recorded Date Recorded By Document 08/21/20 14:22 PL [id number] 08/21/20 14:26 PL 08/21/20 14:22 Wound Center Nurse 2 #4 L Posterior Thigh -Time 11:30 -Correct Patient Yes -Correct Side, Site, Position Yes -Correct Procedure Yes -Procedure Performed Yes -Type of Procedure Debridement -Clinical Debridement Subcutaneous -Tissue Removed Subcutaneous -Post Debridement (cm) - Length 3.5 -Post Debridement (cm) - Width 3.0 -Post Debridement (cm) - Depth 0.1 -Total Square (Post) (cm) 10.50 -Area of Debridement (cm) - Length 3.5 -Area of Debridement (cm) - Width 3.0 -Total Square (Area) (cm) 10.50 -Tunneling No -Undermining/Tunneling No -Circular Undermining No -Wound/Ulcer Outcome Not Healed -Ulcer Cleansing Rinsed/ Irrigated with Saline -Foul Odor after Cleansing No -Bioengineered Tissue No -Bleeding Controlled with Pressure -Treatment Response Procedure Tolerated Well -Debridement - Subq, 1st 20sq cm No #3 Coccyx -Time 11:35 -Correct Patient Yes -Correct Side, Site, Position Yes -Correct Procedure Yes -Procedure Performed Yes -Type of Procedure Debridement -Clinical Debridement Subcutaneous -Tissue Removed Subcutaneous -Post Debridement (cm) - Length 2.5 -Post Debridement (cm) - Width 3.0 -Post Debridement (cm) - Depth 0.8 -Total Square (Post) (cm) 7.50 -Area of Debridement (cm) - Length 2.5 -Area of Debridement (cm) - Width 3.0 -Total Square (Area) (cm) 7.50 -Tunneling No -Undermining/Tunneling No -Circular Undermining No -Wound/Ulcer Outcome Not Healed -Ulcer Cleansing Rinsed/ Irrigated with Saline -Foul Odor after Cleansing No -Bioengineered Tissue No -Bleeding Controlled with Pressure -Treatment Response Procedure Tolerated Well -Debridement - Subq, 1st 20sq cm No #1 left abd fold cluster -Time 11:33 -Correct Patient Yes -Correct Side, Site, Position Yes -Correct Procedure Yes -Procedure Performed Yes -Type of Procedure Debridement -Clinical Debridement Subcutaneous -Tissue Removed Subcutaneous -Post Debridement (cm) - Length 6 -Post Debridement (cm) - Width 17.5 -Post Debridement (cm) - Depth 0.1 -Total Square (Post) (cm) 105.0 -Area of Debridement (cm) - Length 6 -Area of Debridement (cm) - Width 17.5 -Total Square (Area) (cm) 105.0 -Tunneling No -Undermining/Tunneling No -Circular Undermining No -Wound/Ulcer Outcome Not Healed -Ulcer Cleansing Rinsed/ Irrigated with Saline -Foul Odor after Cleansing No -Bioengineered Tissue No -Debridement - Subq, 1st 20sq cm Yes -Debridement, SubQ, ea addt'l 20sq cm 5 or part thereof Pain Scale: 0-10 Numeric Is Patient Pain Free? Yes WC - Nurse 3 - General Ulcer D/C NN Start: 08/14/20 11:19 Freq: Status: Active Protocol: Activity Type Activity Date Activity User E-Sign Co-Sign Detail Recorded Client Recorded Date Recorded By Document 08/21/20 11:49 [facility] [id number] 08/21/20 11:51 [facility] 08/21/20 11:49 Wound Care Nurse 3 #4 L Posterior Thigh -Ulcer Cleansing Rinsed/ Irrigated with Saline -Foul Odor after Cleansing No -Primary Dressing Applied Fibracol Plus 4x4 -Primary Dressing Covered/Secured with Secured with Tape,Other -Other Covering ABD -Fibracol Plus 4x4 1 #3 Coccyx -Ulcer Cleansing Rinsed/ Irrigated with Saline -Foul Odor after Cleansing No -Primary Dressing Applied Fibracol Plus 4x4 -Primary Dressing Covered/Secured with Secured with Tape,Other -Other Covering ABD -Fibracol Plus 4x4 0 #1 left abd fold cluster -Ulcer Cleansing Rinsed/ Irrigated with Saline -Foul Odor after Cleansing No -Primary Dressing Applied Fibracol Plus 4x4,Other -Primary Dressing Covered/Secured with Secured with Tape,Other -Other Covering ABD -Fibracol Plus 4x4 0 Treatment Response Procedure Tolerated Well Vital Signs Pulse Rate (60-100) 94 Pulse Location Monitor Respiratory Rate (12-18) 16 Respiratory rate source Observation Oxygen Delivery Method Room Air Blood Pressure (90/60-120/80) 138/66 H Blood Pressure Mean (mm Hg) 90 Source Monitor Position Sitting Blood Pressure Location Left Forearm Pain Scale: 0-10 Numeric Is Patient Pain Free? Yes WC - Visit Discharge Discharge Condition Stable Ambulatory Status Wheelchair Wound debrided: Coccyx Laterality: Not Applicable Wound Grade/Stage: Stage III Type of Debridement: Excisional debridement Anesthesia Used: 4% Lidocaine Solution, 5% Lidocaine Gel Depth: in the subcutaneous layer Percentage of wound debrided: 100 Tissue Removed: Slough and devitalized tissue Severity: Fat Layer Exposed Amount of bleeding with debridement: Mild Bleeding Controlled with: Pressure Patient tolerated procedure well - Additional Wound Wound debrided: Left groin cluster Laterality: Left Type of Debridement: Excisional debridement Anesthesia Used: 4% Lidocaine Solution Depth: in the subcutaneous layer Percentage of wound debrided: 100 Instrument Used: 7mm curette Tissue Removed: Slough and devitalized tissue Severity: Fat Layer Exposed Amount of bleeding with debridement: Mild Bleeding Controlled with: Pressure Patient tolerated procedure: Patient tolerated procedure well - Additional Wound Wound debrided: Left posterior thigh ulcer Laterality: Left Wound Grade/Stage: 2 Type of Debridement: Excisional debridement Anesthesia Used: 4% Lidocaine Solution Depth: in the subcutaneous layer Percentage of wound debrided: 100 Instrument Used: 7mm curette Tissue Removed: Slough and devitalized tissue Severity: Fat Layer Exposed Amount of bleeding with debridement: Mild Bleeding Controlled with: Pressure Patient tolerated procedure: Patient tolerated procedure well Assessment/Plan Active Problems (Last Reviewed 08/08/20 @ 10:[address] Jose Yu MD) Pressure ulcer of left thigh (Acute) Ulcer of abdomen wall with fat layer exposed (Chronic) Ulcer of left groin with fat layer exposed (Chronic) Candidal intertrigo (Chronic) Assessment: ulcers of left groin. morbid obesity. Candidal intertrigo. Stage 3 pressure ulcer of coccyx Plan: Samra's ulcers were evaluated today. Left groin cluster has increased in size, and she has a new ulcer to her left posterior thigh. I will have her continue to use Fibracol to the ulcers of her left lower abdomen and coccyx as well as her new left posterior thigh ulcer. She should continue to use ABD pads to her inguinal fold area to absorb moisture and prevent ulcers from developing due to the heavy drainage. She should change ABDs to left groin area 2-3 times/day as needed for soiling through of heavy drainage. Diflucan will be continued once weekly to treat candidal intertrigo. Will have her take this weekly to every other week due to sweating and heat and her body habitus and chronic yeast which are causing her to develop ulcers. Encouraged her to increase protein intake and offload the areas of her ulcers. Advised to call with any fever, chills, increased. drainage. Due to the chronic stage 3 pressure ulcer of her coccyx she would benefit from offloading mattress such as alternating pressure mattress. 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 F/u in 2 weeks. Follow-up sooner should new or concerning symptoms arise. Note: [employer] speech recognition plate inspector software was used to create portions of this document. Sound-alike and misspelled words, as well as other plate inspector errors may be contained in the documentation. [id number]: [id number] Sharon subq tissue 20 sq cm/< Add On Codes: [id number] Sharon subq tissue add-on - x5
[2020-09-04 11:16] VITALS: BP 98/54; PULSE 73; RESP 18; TEMP 36.3; BMI 48.3
--- NOTE | 2020-09-04 14:48 | PCM.WC.PN ---
(1) Pressure ulcer of left thigh Status: Acute Qualifiers: Pressure injury stage: stage 2 Qualified Code(s): L89.222 - Pressure ulcer of left hip, stage 2 Code(s): L89.229 - Pressure ulcer of left hip, unspecified stage (2) Ulcer of abdomen wall with fat layer exposed Status: Chronic Code(s): L98.492 - Non-pressure chronic ulcer of skin of other sites with fat layer exposed (3) Ulcer of left groin with fat layer exposed Status: Chronic Code(s): L98.492 - Non-pressure chronic ulcer of skin of other sites with fat layer exposed (4) Pressure ulcer of coccygeal region, stage 3 Status: Chronic Code(s): L89.153 - Pressure ulcer of sacral region, stage 3 (5) Morbid obesity Status: Chronic Code(s): E66.01 - Morbid (severe) obesity due to excess calories (6) Candidal intertrigo Status: Chronic Code(s): B37.2 - Candidiasis of skin and nail Type of Wound Date of Service: 09/04/20 Chief Complaint: ulcers of left groin and abdomen, pressure ulcer of coccyx History of Wound: Samra is a 74 yo woman who presented to the wound center for ulcers of left groin and abdomen referred by wound nurse at [facility]. She was hospitalized at [facility] for urosepsis multiple times. She was on IV antibiotics of Meropenem and Vancomycin. She is morbidly obese and has problems with candidal intertrigo and has ulcers that open frequently for several years. She was using towels to keep moisture from accumulating under her skin folds but this has been ineffective. She started using InstaDry sheets since discharge from the hospital which has improved the moisture in her folds. She has been using nystatin powder as well. She had been using bacitracin to the ulcer of her abdomen. She has an indwelling suprapubic catheter that is changed monthly. She has heavy drainage from her ulcers. She is wheelchair bound and has an aid that helps her daily for a few hours per day. She denies fever or chills. In May 2019, she reports that she has a chronic ulcer of her coccyx area that was previously surgically debrided that comes and goes and has gotten worse since she was in the detention in early 2018. Progress of Wound: Samra is here for follow up of ulcers of her left groin and coccyx. She is tolerating Fibracol dressings to left groin and abdomen. She uses ABD pads and a pillowcase to wick away moisture from her inguinal folds. She has had improvement in erythema but increased size due to increased perspiration. She has had increase in pain to coccyx ulcer but this has decreased in size. She has heavy drainage from the ulcers of her left groin. She is tolerating fibracol to her coccyx ulcer and has moderate to heavy drainage from this ulcer. Her mid-abdomen ulcer remains healed. She has a new ulcer to her left posterior thigh, which she reports onset approximately 2 weeks ago. She feels this occurred while hospitalized, from shearing force of repositioning and transferring, and continued pressure. She has been using Fibracol to the new left posterior thigh ulcer for the last few days. She denies fever or chills, nausea, vomiting, or diarrhea. 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 - Physical Exam Vital Signs Temp Pulse Resp BP 97.3 F L 73 18 98/54 L 09/04/20 11:16 09/04/20 11:16 09/04/20 11:16 09/04/20 11:16 General: Alert, Oriented x3, Cooperative, No apparent distress HEENT: Atraumatic, Normocephalic Oral: Moist Mucosa Abdomen: Obese Extremities: Edema Skin: Ulcer/ Wound Wound Measurements and Assessment WC - Nurse 1 - General Ulcer Measurement Start: 08/14/20 11:19 Freq: Status: Active Protocol: Activity Type Activity Date Activity User E-Sign Co-Sign Detail Recorded Client Recorded Date Recorded By Document 09/04/20 11:16 RB [id number] 09/04/20 11:19 RB 09/04/20 11:16 Wound Center Nurse 1 [Ulcer Assessment] #4 L Posterior Thigh -Combined with other wound No -Current Size (cm) - Length 2.4 -Current Size (cm) - Width 0.5 -Current Size (cm) - Depth 0.1 -Total Square Cm 1.20 -Tunneling No -Undermining/Tunneling No -Circular Undermining No -Exudate Amt Small -Exudate Type Serosanguineous -Wound Margin Flat & Intact -Granulation Amt Medium (34-66%) -Granulation Quality [place],Red -Slough/Fibrin Yes -Necrosis Amt Small (1-33%) -Necrotic Tissue Type Adherent Slough -Structure Exposed N/A -Texture (Jessica-wound Skin Appearance) Excoriation -Moisture (Jessica-wound Skin Appearance Assessed ) -Color (Jessica-wound Skin Appearance) Assessed -Temperature (Jessica-wound Skin No Abnormality Appearance) (Pt Warm) -Tenderness on Palpation (Jessica-wound No Skin Appearance) -Ulcer Cleansing Wound Cleanser -Foul Odor after Cleansing No -Anesthetic Used 4% Lidocaine Solution #3 Coccyx -Combined with other wound No -Current Size (cm) - Length 0.3 -Current Size (cm) - Width 1 -Current Size (cm) - Depth 0.3 -Total Square Cm 0.3 -Tunneling No -Undermining/Tunneling No -Circular Undermining No -Exudate Amt Small -Exudate Type Serosanguineous -Wound Margin Thickened -Granulation Amt Medium (34-66%) -Granulation Quality [place] -Slough/Fibrin Yes -Necrosis Amt Small (1-33%) -Necrotic Tissue Type Adherent Slough -Structure Exposed N/A -Texture (Jessica-wound Skin Appearance) Scarring -Moisture (Jessica-wound Skin Appearance Assessed ) -Color (Jessica-wound Skin Appearance) Assessed -Temperature (Jessica-wound Skin No Abnormality Appearance) (Pt Warm) -Tenderness on Palpation (Jessica-wound No Skin Appearance) -Ulcer Cleansing Wound Cleanser -Foul Odor after Cleansing No -Anesthetic Used 5% Lidocaine Gel #1 left abd fold cluster -Combined with other wound No -Current Size (cm) - Length 0.3 -Current Size (cm) - Width 11 -Current Size (cm) - Depth 0.1 -Total Square Cm 3.3 -Tunneling No -Undermining/Tunneling No -Circular Undermining No -Exudate Amt Small -Exudate Type Serosanguineous -Wound Margin Flat & Intact -Granulation Amt Medium (34-66%) -Granulation Quality [place] -Slough/Fibrin Yes -Necrosis Amt Small (1-33%) -Necrotic Tissue Type Adherent Slough -Structure Exposed N/A -Texture (Jessica-wound Skin Appearance) Assessed -Moisture (Jessica-wound Skin Appearance Assessed ) -Color (Jessica-wound Skin Appearance) Assessed -Temperature (Jessica-wound Skin No Abnormality Appearance) (Pt Warm) -Tenderness on Palpation (Jessica-wound No Skin Appearance) -Ulcer Cleansing Wound Cleanser -Foul Odor after Cleansing No -Anesthetic Used 4% Lidocaine Solution WC - Nurse 2 - General Ulcer CM Notes Start: 08/14/20 11:19 Freq: Status: Active Protocol: Activity Type Activity Date Activity User E-Sign Co-Sign Detail Recorded Client Recorded Date Recorded By Document 09/04/20 11:21 MW [id number] 09/04/20 11:37 MW 09/04/20 11:21 Wound Center Nurse 2 [Procedure/Treatment] #4 L Posterior Thigh -Time 11:36 -Correct Patient Yes -Correct Side, Site, Position Yes -Correct Procedure Yes -Procedure Performed Yes -Type of Procedure Debridement -Clinical Debridement Subcutaneous -Tissue Removed Subcutaneous -Post Debridement (cm) - Length 2.4 -Post Debridement (cm) - Width 0.5 -Post Debridement (cm) - Depth 0.1 -Total Square (Post) (cm) 1.20 -Area of Debridement (cm) - Length 2.4 -Area of Debridement (cm) - Width 0.5 -Total Square (Area) (cm) 1.20 -Tunneling No -Undermining/Tunneling No -Circular Undermining No -Wound/Ulcer Outcome Not Healed -Ulcer Cleansing Rinsed/ Irrigated with Saline -Foul Odor after Cleansing No -Bioengineered Tissue No -Bleeding Controlled with Pressure -Offloading No -Treatment Response Procedure Tolerated Well -Debridement - Subq, 1st 20sq cm Yes #3 Coccyx -Time 11:36 -Correct Patient Yes -Correct Side, Site, Position Yes -Correct Procedure Yes -Procedure Performed Yes -Type of Procedure Debridement -Clinical Debridement Subcutaneous -Tissue Removed Subcutaneous -Post Debridement (cm) - Length 0.3 -Post Debridement (cm) - Width 1.5 -Post Debridement (cm) - Depth 0.3 -Total Square (Post) (cm) 0.45 -Area of Debridement (cm) - Length 0.3 -Area of Debridement (cm) - Width 1.5 -Total Square (Area) (cm) 0.45 -Tunneling No -Undermining/Tunneling No -Circular Undermining No -Wound/Ulcer Outcome Not Healed -Ulcer Cleansing Rinsed/ Irrigated with Saline -Foul Odor after Cleansing No -Bioengineered Tissue No -Bleeding Controlled with Pressure -Offloading No -Treatment Response Procedure Tolerated Well -Debridement - Subq, 1st 20sq cm No #1 left abd fold cluster -Time 11:37 -Correct Patient Yes -Correct Side, Site, Position Yes -Correct Procedure Yes -Procedure Performed No -Tunneling No -Undermining/Tunneling No -Circular Undermining No -Wound/Ulcer Outcome Not Healed -Ulcer Cleansing Rinsed/ Irrigated with Saline -Foul Odor after Cleansing No -Bioengineered Tissue No -Bleeding Controlled with NA -Offloading No [See Physician Procedure note for Specifics] Pain Scale: 0-10 Numeric [Pain] -Is Patient Pain Free? Yes WC - Nurse 3 - General Ulcer D/C NN Start: 08/14/20 11:19 Freq: Status: Active Protocol: Activity Type Activity Date Activity User E-Sign Co-Sign Detail Recorded Client Recorded Date Recorded By Document 09/04/20 11:37 MW [id number] 09/04/20 11:41 MW 09/04/20 11:37 Wound Care Nurse 3 [Wound Dressing] #4 L Posterior Thigh -Ulcer Cleansing Rinsed/ Irrigated with Saline -Foul Odor after Cleansing No -Negative Pressure Wound Therapy N/A -Other Dressing fibracol plus -Primary Dressing Covered/Secured Dry Gauze, with Secured with Tape #3 Coccyx -Ulcer Cleansing Rinsed/ Irrigated with Saline -Foul Odor after Cleansing No -Negative Pressure Wound Therapy N/A -Other Dressing fibracol plus -Primary Dressing Covered/Secured Dry Gauze, with Secured with Tape #1 left abd fold cluster -Ulcer Cleansing Rinsed/ Irrigated with Saline -Foul Odor after Cleansing No -Negative Pressure Wound Therapy N/A -Other Dressing fibracol plus -Other Covering abd pad [Post Procedure Tolerated] -Treatment Response Procedure Tolerated Well Pain Scale: 0-10 Numeric [Pain] -Is Patient Pain Free? Yes Teaching: Wound Center [Wound Center Education] (Items with an * have Printed Materials Available- Please identify what is given to patient under the Teaching materials given to patient and caregiver Section. Dressing Your Wound -Person Taught Patient -Teaching Method Discussion, Demonstration -Response to teaching Verbalize understanding WC - Visit Discharge [Visit Discharge Information] -Discharge Condition Stable -Ambulatory Status Wheelchair -Transportation Private Auto -Accompanied by sister -Medication Reconcilliation completed No & provided to patient/care provider -Clinical Summary of Care Provided Yes Psych/Mental Status: Normal Affect, Appropriate Debridement Note Post-Debridement Measurements/Treatment WC - Nurse 2 - General Ulcer CM Notes Start: 08/14/20 11:19 Freq: Status: Active Protocol: Activity Type Activity Date Activity User E-Sign Co-Sign Detail Recorded Client Recorded Date Recorded By Document 08/21/20 14:22 PL [id number] 08/21/20 14:26 PL Document 09/04/20 11:21 MW [id number] 09/04/20 11:37 MW 08/21/20 09/04/20 14:22 11:21 Wound Center Nurse 2 #4 L Posterior Thigh -Time 11:30 11:36 -Correct Patient Yes Yes -Correct Side, Site, Position Yes Yes -Correct Procedure Yes Yes -Procedure Performed Yes Yes -Type of Procedure Debridement Debridement -Clinical Debridement Subcutaneous Subcutaneous -Tissue Removed Subcutaneous Subcutaneous -Post Debridement (cm) - Length 3.5 2.4 -Post Debridement (cm) - Width 3.0 0.5 -Post Debridement (cm) - Depth 0.1 0.1 -Total Square (Post) (cm) 10.50 1.20 -Area of Debridement (cm) - Length 3.5 2.4 -Area of Debridement (cm) - Width 3.0 0.5 -Total Square (Area) (cm) 10.50 1.20 -Tunneling No No -Undermining/Tunneling No No -Circular Undermining No No -Wound/Ulcer Outcome Not Healed Not Healed -Ulcer Cleansing Rinsed/ Rinsed/ Irrigated with Irrigated with Saline Saline -Foul Odor after Cleansing No No -Bioengineered Tissue No No -Bleeding Controlled with Pressure Pressure -Offloading No -Treatment Response Procedure Procedure Tolerated Well Tolerated Well -Debridement - Subq, 1st 20sq cm No Yes #3 Coccyx -Time 11:35 11:36 -Correct Patient Yes Yes -Correct Side, Site, Position Yes Yes -Correct Procedure Yes Yes -Procedure Performed Yes Yes -Type of Procedure Debridement Debridement -Clinical Debridement Subcutaneous Subcutaneous -Tissue Removed Subcutaneous Subcutaneous -Post Debridement (cm) - Length 2.5 0.3 -Post Debridement (cm) - Width 3.0 1.5 -Post Debridement (cm) - Depth 0.8 0.3 -Total Square (Post) (cm) 7.50 0.45 -Area of Debridement (cm) - Length 2.5 0.3 -Area of Debridement (cm) - Width 3.0 1.5 -Total Square (Area) (cm) 7.50 0.45 -Tunneling No No -Undermining/Tunneling No No -Circular Undermining No No -Wound/Ulcer Outcome Not Healed Not Healed -Ulcer Cleansing Rinsed/ Rinsed/ Irrigated with Irrigated with Saline Saline -Foul Odor after Cleansing No No -Bioengineered Tissue No No -Bleeding Controlled with Pressure Pressure -Offloading No -Treatment Response Procedure Procedure Tolerated Well Tolerated Well -Debridement - Subq, 1st 20sq cm No No #1 left abd fold cluster -Time 11:33 11:37 -Correct Patient Yes Yes -Correct Side, Site, Position Yes Yes -Correct Procedure Yes Yes -Procedure Performed Yes No -Type of Procedure Debridement -Clinical Debridement Subcutaneous -Tissue Removed Subcutaneous -Post Debridement (cm) - Length 6 -Post Debridement (cm) - Width 17.5 -Post Debridement (cm) - Depth 0.1 -Total Square (Post) (cm) 105.0 -Area of Debridement (cm) - Length 6 -Area of Debridement (cm) - Width 17.5 -Total Square (Area) (cm) 105.0 -Tunneling No No -Undermining/Tunneling No No -Circular Undermining No No -Wound/Ulcer Outcome Not Healed Not Healed -Ulcer Cleansing Rinsed/ Rinsed/ Irrigated with Irrigated with Saline Saline -Foul Odor after Cleansing No No -Bioengineered Tissue No No -Bleeding Controlled with NA -Offloading No -Debridement - Subq, 1st 20sq cm Yes -Debridement, SubQ, ea addt'l 20sq cm 5 or part thereof Pain Scale: 0-10 Numeric Is Patient Pain Free? Yes Yes WC - Nurse 3 - General Ulcer D/C NN Start: 08/14/20 11:19 Freq: Status: Active Protocol: Activity Type Activity Date Activity User E-Sign Co-Sign Detail Recorded Client Recorded Date Recorded By Document 08/21/20 11:49 [facility] [id number] 08/21/20 11:51 BM Document 09/04/20 11:37 MW [id number] 09/04/20 11:41 MW 08/21/20 09/04/20 11:49 11:37 Wound Care Nurse 3 #4 L Posterior Thigh -Ulcer Cleansing Rinsed/ Rinsed/ Irrigated with Irrigated with Saline Saline -Foul Odor after Cleansing No No -Negative Pressure Wound Therapy N/A -Primary Dressing Applied Fibracol Plus 4x4 -Other Dressing fibracol plus -Primary Dressing Covered/Secured with Secured with Dry Gauze, Tape,Other Secured with Tape -Other Covering ABD -Fibracol Plus 4x4 1 #3 Coccyx -Ulcer Cleansing Rinsed/ Rinsed/ Irrigated with Irrigated with Saline Saline -Foul Odor after Cleansing No No -Negative Pressure Wound Therapy N/A -Primary Dressing Applied Fibracol Plus 4x4 -Other Dressing fibracol plus -Primary Dressing Covered/Secured with Secured with Dry Gauze, Tape,Other Secured with Tape -Other Covering ABD -Fibracol Plus 4x4 0 #1 left abd fold cluster -Ulcer Cleansing Rinsed/ Rinsed/ Irrigated with Irrigated with Saline Saline -Foul Odor after Cleansing No No -Negative Pressure Wound Therapy N/A -Primary Dressing Applied Fibracol Plus 4x4,Other -Other Dressing fibracol plus -Primary Dressing Covered/Secured with Secured with Tape,Other -Other Covering ABD abd pad -Fibracol Plus 4x4 0 Treatment Response Procedure Procedure Tolerated Well Tolerated Well Vital Signs Pulse Rate (60-100) 94 Pulse Location Monitor Respiratory Rate (12-18) 16 Respiratory rate source Observation Oxygen Delivery Method Room Air Blood Pressure (90/60-120/80) 138/66 H Blood Pressure Mean (mm Hg) 90 Source Monitor Position Sitting Blood Pressure Location Left Forearm Pain Scale: 0-10 Numeric Is Patient Pain Free? Yes Yes Teaching: Wound Center Dressing Your Wound -Person Taught Patient -Teaching Method Discussion, Demonstration -Response to teaching Verbalize understanding WC - Visit Discharge Discharge Condition Stable Stable Ambulatory Status Wheelchair Wheelchair Transportation Private Auto Accompanied by sister Medication Reconcilliation completed & No provided to patient/care provider Clinical Summary of Care Provided Yes Wound debrided: left abdominal fold cluster Laterality: Left Type of Debridement: Selective debridement Anesthesia Used: 4% Lidocaine Solution Depth: Down to and including healthy tissue Percentage of wound debrided: 100 Instrument Used: - - gauze Tissue Removed: devitalized tissue, slough Severity: Fat Layer Exposed Amount of bleeding with debridement: Mild Bleeding Controlled with: Compression and gauze Patient tolerated procedure well - Additional Wound Wound debrided: coccyx Laterality: Not Applicable Wound Grade/Stage: Stage 3 Type of Debridement: Excisional debridement Anesthesia Used: 4% Lidocaine Solution Depth: Down to and including healthy tissue, in the subcutaneous layer Percentage of wound debrided: 100 Instrument Used: 3mm curette Tissue Removed: Yellow slough, devitalized tissue Severity: Fat Layer Exposed Amount of bleeding with debridement: Mild Bleeding Controlled with: Compression and gauze Patient tolerated procedure: Patient tolerated procedure well - Additional Wound Wound debrided: left posterior thigh Laterality: Left Wound Grade/Stage: Stage 2 Type of Debridement: Excisional debridement Anesthesia Used: 4% Lidocaine Solution Depth: Down to and including healthy tissue, in the subcutaneous layer Percentage of wound debrided: 100 Instrument Used: 3mm curette Tissue Removed: Yellow slough, devitalized tissue Severity: Fat Layer Exposed Amount of bleeding with debridement: Mild Bleeding Controlled with: Compression and gauze Patient tolerated procedure: Patient tolerated procedure well Assessment/Plan Active Problems (Last Reviewed 08/08/20 @ 10:[address] Jose Yu MD) Pressure ulcer of left thigh (Acute) Assessment: ulcers of left groin. morbid obesity. Candidal intertrigo. Stage 3 pressure ulcer of coccyx Plan: Samra's ulcers were evaluated today. Left groin cluster has decreased in size, and she has a new ulcer to her left posterior thigh. I will have her continue to use Fibracol to the ulcers of her left lower abdomen and coccyx as well as her new left posterior thigh ulcer. She should continue to use ABD pads to her inguinal fold area to absorb moisture and prevent ulcers from developing due to the heavy drainage. She should change ABDs to left groin area 2-3 times/day as needed for soiling through of heavy drainage. Diflucan will be continued once weekly to treat candidal intertrigo. Will have her take this weekly to every other week due to sweating and heat and her body habitus and chronic yeast which are causing her to develop ulcers. Encouraged her to increase protein intake and offload the areas of her ulcers. Advised to call with any fever, chills, increased. drainage. Due to the chronic stage 3 pressure ulcer of her coccyx she would benefit from offloading mattress such as alternating pressure mattress. 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 F/u in 2 weeks. Follow-up sooner should new or concerning symptoms arise. Note: [employer] speech recognition construction contractor software was used to create portions of this document. Sound-alike and misspelled words, as well as other construction contractor errors may be contained in the documentation.
== END 2020-09-12 23:59 ==
LOC: WC 11:00
PROVIDERS: Family Provider Family Medicine; PCP Family Medicine; Referring Provider Family Medicine; Visit Provider Family Medicine
DX: L89.892 Pressure ulcer of other site, stage 2 (principal); B37.2 Candidiasis of skin and nail; E66.01 Morbid (severe) obesity due to excess calories; Z99.3 Dependence on wheelchair; L89.153 Pressure ulcer of sacral region, stage 3; L98.492 Non-pressure chronic ulcer of skin of other sites with fat layer exposed
CPT/HCPCS: 11042; 11045; 87070; 87075; 87077; 87205

== ENCOUNTER → 2020-09-15 14:54 | Outpatient (CLI) | payer MEDICARE, OTHER, SELFPAY ==
[2020-09-04 11:16] VITALS: BMI 48.3
[2020-09-15 17:19] LABS: Hematocrit 28.2 % (37-47); Hemoglobin 8.3 g/dL (12.0-15.0)
== END ==
PROVIDERS: PCP Family Medicine; Visit Provider Family Medicine
DX: D50.9 Iron deficiency anemia, unspecified (principal)
CPT/HCPCS: 36415; 85014; 85018; 87077; 87086; 87088; 87186

== ENCOUNTER 2020-10-09 11:00 | Outpatient (RCR) | payer MEDICARE, OTHER, SELFPAY ==
[2020-09-13 00:17] VITALS: BP 98/54; PULSE 73; RESP 18; TEMP 36.3
[2020-09-18 11:11] VITALS: BP 92/47; PULSE 71; RESP 16; TEMP 35.7; BMI 48.3
[2020-09-18 11:56] VITALS: BP 93/58; PULSE 95; RESP 20; TEMP 36.7
--- NOTE | 2020-09-18 12:13 | PN.PCM_ITS ---
(1) Pressure ulcer of left thigh Status: Chronic Qualifiers: Pressure injury stage: stage 2 Code(s): L89.229 - Pressure ulcer of left hip, unspecified stage (2) Ulcer of abdomen wall with fat layer exposed Status: Chronic Code(s): L98.492 - Non-pressure chronic ulcer of skin of other sites with fat layer exposed (3) Pressure ulcer of coccygeal region, stage 3 Status: Chronic Code(s): L89.153 - Pressure ulcer of sacral region, stage 3 (4) Morbid obesity Status: Chronic Code(s): E66.01 - Morbid (severe) obesity due to excess calories (5) UTI (urinary tract infection) due to urinary indwelling catheter Status: Chronic Qualifiers: Indwelling urinary catheter type: cystostomy catheter Encounter type: sequela Qualified Code(s): T83.510S - Infection and inflammatory reaction due to cystostomy catheter, sequela; N39.0 - Urinary tract infection, site not specified Code(s): T83.511A - Infection and inflammatory reaction due to indwelling urethral catheter, initial encounter; N39.0 - Urinary tract infection, site not specified Comment: Chronic gram negative bacteria (6) Candidal intertrigo Status: Chronic Code(s): B37.2 - Candidiasis of skin and nail Type of Wound Date of Service: 09/18/20 Chief Complaint: ulcers of left groin and abdomen, pressure ulcer of coccyx History of Wound: Samra is a 74 yo woman who presented to the wound center for ulcers of left groin and abdomen referred by wound nurse at [facility]. She was hospitalized at [facility] for urosepsis multiple times. She was on IV antibiotics of Meropenem and Vancomycin. She is morbidly obese and has problems with candidal intertrigo and has ulcers that open frequently for several years. She was using towels to keep moisture from accumulating under her skin folds but this has been ineffective. She started using InstaDry sheets since discharge from the hospital which has improved the moisture in her folds. She has been using nystatin powder as well. She had been using bacitracin to the ulcer of her abdomen. She has an indwelling suprapubic catheter that is changed monthly. She has heavy drainage from her ulcers. She is wheelchair bound and has an aid that helps her daily for a few hours per day. She denies fever or chills. In May 2019, she reports that she has a chronic ulcer of her coccyx area that was previously surgically debrided that comes and goes and has gotten worse since she was in the custodial in early 2018. Progress of Wound: Samra is here for follow up of ulcers of her left groin and coccyx. She is tolerating Fibracol dressings to left groin and abdomen. She uses ABD pads and a pillowcase to wick away moisture from her inguinal folds. She has had improvement in erythema and the groin ulcers are healed. She has had improvement to coccyx ulcer and left upper posterior thigh ulcer. She is tolerating fibracol to her coccyx ulcer and has moderate to heavy drainage from this ulcer. Her mid-abdomen ulcer remains healed. The ulcer to her left posterior thigh occurred while hospitalized, from shearing force of repositioning and transferring, and continued pressure. She has been using Fibracol to the left posterior thigh ulcerwith improvement. She currently has a UTI and is being treated with Cipro and was started on Augmentin today. She denies fever or chills, nausea, vomiting, or diarrhea. 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 - Physical Exam Vital Signs Temp Pulse Resp BP 98.0 F 95 20 H 93/58 L 09/18/20 11:56 09/18/20 11:56 09/18/20 11:56 09/18/20 11:56 General: Alert, Oriented x3, Cooperative, No apparent distress HEENT: Atraumatic, Normocephalic Oral: Moist Mucosa Abdomen: Soft, Non Tender, Obese Skin: Ulcer/ Wound Wound Measurements and Assessment WC - Nurse 1 - General Ulcer Measurement Start: 09/18/20 11:11 Freq: Status: Active Protocol: Activity Type Activity Date Activity User E-Sign Co-Sign Detail Recorded Client Recorded Date Recorded By Document 09/18/20 11:11 [facility] [id number] 09/18/20 11:29 [facility] 09/18/20 11:11 Wound Center Nurse 1 [Ulcer Assessment] #4 L Posterior Thigh -Combined with other wound No -Current Size (cm) - Length 1 -Current Size (cm) - Width 2.3 -Current Size (cm) - Depth 0.1 -Total Square Cm 2.3 -Photo Taken No -Epithelialization None Present -Tunneling No -Undermining/Tunneling No -Circular Undermining No -Exudate Amt Large -Exudate Type Serosanguineous -Wound Margin Distinct, Outline Attached -Granulation Amt Large (67-100%) -Granulation Quality Red -Slough/Fibrin No -Necrosis Amt None Present (0 %) -Texture (Jessica-wound Skin Appearance) Assessed, Scarring -Moisture (Jessica-wound Skin Appearance Assessed ) -Color (Jessica-wound Skin Appearance) Assessed, Erythema -Temperature (Jessica-wound Skin No Abnormality Appearance) (Pt Warm) -Tenderness on Palpation (Jessica-wound No Skin Appearance) -Ulcer Cleansing Rinsed/ Irrigated with Saline -Foul Odor after Cleansing No -Anesthetic Used 5% Lidocaine Gel #3 Coccyx -Combined with other wound No -Current Size (cm) - Length 1.5 -Current Size (cm) - Width 2.6 -Current Size (cm) - Depth 0.6 -Total Square Cm 3.90 -Photo Taken No -Epithelialization None Present -Tunneling No -Undermining/Tunneling No -Circular Undermining No -Exudate Amt Small -Exudate Type Serosanguineous -Wound Margin Thickened & Rolled Under -Granulation Amt Medium (34-66%) -Granulation Quality [place] -Slough/Fibrin Yes -Necrosis Amt Medium (34-66%) -Necrotic Tissue Type Adherent Slough -Texture (Jessica-wound Skin Appearance) Assessed, Scarring -Moisture (Jessica-wound Skin Appearance Assessed, ) Maceration -Color (Jessica-wound Skin Appearance) Assessed,Palor -Temperature (Jessica-wound Skin No Abnormality Appearance) (Pt Warm) -Tenderness on Palpation (Jessica-wound No Skin Appearance) -Ulcer Cleansing soapy water -Foul Odor after Cleansing No -Anesthetic Used 4% Lidocaine Solution #1 left abd fold cluster -Combined with other wound No -Current Size (cm) - Length 0.1 -Current Size (cm) - Width 0.1 -Current Size (cm) - Depth 0.1 -Total Square Cm 0.01 -Epithelialization Large 67-100% -Tunneling No -Undermining/Tunneling No -Circular Undermining No WC - Nurse 2 - General Ulcer CM Notes Start: 09/18/20 11:11 Freq: Status: Active Protocol: Activity Type Activity Date Activity User E-Sign Co-Sign Detail Recorded Client Recorded Date Recorded By Document 09/18/20 11:37 MW [id number] 09/18/20 11:56 MW 09/18/20 11:37 Wound Center Nurse 2 [Procedure/Treatment] #4 L Posterior Thigh -Time 11:52 -Correct Patient Yes -Correct Side, Site, Position Yes -Correct Procedure Yes -Procedure Performed Yes -Type of Procedure Debridement -Clinical Debridement Epidermis / Dermis -Tissue Removed Epidermis -Post Debridement (cm) - Length 0.6 -Post Debridement (cm) - Width 2.0 -Post Debridement (cm) - Depth 0.1 -Total Square (Post) (cm) 1.20 -Area of Debridement (cm) - Length 0.6 -Area of Debridement (cm) - Width 2.0 -Total Square (Area) (cm) 1.20 -Tunneling No -Undermining/Tunneling No -Circular Undermining No -Wound/Ulcer Outcome Not Healed -Ulcer Cleansing Rinsed/ Irrigated with Saline -Foul Odor after Cleansing No -Bioengineered Tissue No -Bleeding Controlled with Pressure -Offloading No -Treatment Response Procedure Tolerated Well -Debridement - Open, 1st 20sq cm Yes #3 Coccyx -Time 11:53 -Correct Patient Yes -Correct Side, Site, Position Yes -Correct Procedure Yes -Procedure Performed Yes -Type of Procedure Debridement -Clinical Debridement Subcutaneous -Tissue Removed Subcutaneous -Post Debridement (cm) - Length 0.4 -Post Debridement (cm) - Width 0.9 -Post Debridement (cm) - Depth 0.3 -Total Square (Post) (cm) 0.36 -Area of Debridement (cm) - Length 0.4 -Area of Debridement (cm) - Width 0.9 -Total Square (Area) (cm) 0.36 -Tunneling No -Undermining/Tunneling No -Circular Undermining No -Wound/Ulcer Outcome Not Healed -Ulcer Cleansing Rinsed/ Irrigated with Saline -Foul Odor after Cleansing No -Bioengineered Tissue No -Bleeding Controlled with Pressure -Offloading No -Treatment Response Procedure Tolerated Well -Debridement - Subq, 1st 20sq cm Yes #1 left abd fold cluster -Time 11:54 -Correct Patient Yes -Correct Side, Site, Position Yes -Correct Procedure Yes -Procedure Performed No -Post Debridement (cm) - Length 0 -Post Debridement (cm) - Width 0 -Post Debridement (cm) - Depth 0 -Total Square (Post) (cm) 0 -Wound/Ulcer Outcome Healed- Epithelialized [See Physician Procedure note for Specifics] Pain Scale: 0-10 Numeric [Pain] -Is Patient Pain Free? Yes WC - Nurse 3 - General Ulcer D/C NN Start: 09/18/20 11:11 Freq: Status: Active Protocol: Activity Type Activity Date Activity User E-Sign Co-Sign Detail Recorded Client Recorded Date Recorded By Document 09/18/20 11:56 MW [id number] 09/18/20 12:00 MW 09/18/20 11:56 Wound Care Nurse 3 [Wound Dressing] #4 L Posterior Thigh -Ulcer Cleansing Rinsed/ Irrigated with Saline -Foul Odor after Cleansing No -Negative Pressure Wound Therapy N/A -Primary Dressing Applied Fibracol Plus 4x4 -Primary Dressing Covered/Secured Dry Gauze, with Secured with Tape -Fibracol Plus 4x4 1 #3 Coccyx -Ulcer Cleansing Rinsed/ Irrigated with Saline -Foul Odor after Cleansing No -Negative Pressure Wound Therapy N/A -Other Dressing fibracol -Primary Dressing Covered/Secured Dry Gauze, with Secured with Tape [Post Procedure Tolerated] -Treatment Response Procedure Tolerated Well Vital Signs [Temperature Protocol: VS] -Temperature (97.8 F-99.1 F) 98.0 F -Temperature Source Temporal [Pulse] -Pulse Rate (60-100) 95 [Respirations] -Respiratory Rate (12-18) 20 H -Respiratory rate source Observation -Oxygen Delivery Method Room Air [Blood Pressure] -Blood Pressure (90/60-120/80) 93/58 L -Blood Pressure Mean (mm Hg) 69 -Source Monitor -Position Sitting -Blood Pressure Location Left Forearm Pain Scale: 0-10 Numeric [Pain] -Is Patient Pain Free? Yes Teaching: Wound Center [Wound Center Education] (Items with an * have Printed Materials Available- Please identify what is given to patient under the Teaching materials given to patient and caregiver Section. Dressing Your Wound -Person Taught Patient -Teaching Method Discussion, Demonstration -Response to teaching Verbalize understanding WC - Visit Discharge [Visit Discharge Information] -Discharge Condition Stable -Ambulatory Status Wheelchair -Transportation Private Auto -Accompanied by sister -Medication Reconcilliation completed No & provided to patient/care provider -Clinical Summary of Care Provided Yes Psych/Mental Status: Normal Affect, Appropriate Debridement Note Post-Debridement Measurements/Treatment WC - Nurse 2 - General Ulcer CM Notes Start: 09/18/20 11:11 Freq: Status: Active Protocol: Activity Type Activity Date Activity User E-Sign Co-Sign Detail Recorded Client Recorded Date Recorded By Document 09/18/20 11:37 MW [id number] 09/18/20 11:56 MW 09/18/20 11:37 Wound Center Nurse 2 #4 L Posterior Thigh -Time 11:52 -Correct Patient Yes -Correct Side, Site, Position Yes -Correct Procedure Yes -Procedure Performed Yes -Type of Procedure Debridement -Clinical Debridement Epidermis / Dermis -Tissue Removed Epidermis -Post Debridement (cm) - Length 0.6 -Post Debridement (cm) - Width 2.0 -Post Debridement (cm) - Depth 0.1 -Total Square (Post) (cm) 1.20 -Area of Debridement (cm) - Length 0.6 -Area of Debridement (cm) - Width 2.0 -Total Square (Area) (cm) 1.20 -Tunneling No -Undermining/Tunneling No -Circular Undermining No -Wound/Ulcer Outcome Not Healed -Ulcer Cleansing Rinsed/ Irrigated with Saline -Foul Odor after Cleansing No -Bioengineered Tissue No -Bleeding Controlled with Pressure -Offloading No -Treatment Response Procedure Tolerated Well -Debridement - Open, 1st 20sq cm Yes #3 Coccyx -Time 11:53 -Correct Patient Yes -Correct Side, Site, Position Yes -Correct Procedure Yes -Procedure Performed Yes -Type of Procedure Debridement -Clinical Debridement Subcutaneous -Tissue Removed Subcutaneous -Post Debridement (cm) - Length 0.4 -Post Debridement (cm) - Width 0.9 -Post Debridement (cm) - Depth 0.3 -Total Square (Post) (cm) 0.36 -Area of Debridement (cm) - Length 0.4 -Area of Debridement (cm) - Width 0.9 -Total Square (Area) (cm) 0.36 -Tunneling No -Undermining/Tunneling No -Circular Undermining No -Wound/Ulcer Outcome Not Healed -Ulcer Cleansing Rinsed/ Irrigated with Saline -Foul Odor after Cleansing No -Bioengineered Tissue No -Bleeding Controlled with Pressure -Offloading No -Treatment Response Procedure Tolerated Well -Debridement - Subq, 1st 20sq cm Yes #1 left abd fold cluster -Time 11:54 -Correct Patient Yes -Correct Side, Site, Position Yes -Correct Procedure Yes -Procedure Performed No -Post Debridement (cm) - Length 0 -Post Debridement (cm) - Width 0 -Post Debridement (cm) - Depth 0 -Total Square (Post) (cm) 0 -Wound/Ulcer Outcome Healed- Epithelialized Pain Scale: 0-10 Numeric Is Patient Pain Free? Yes WC - Nurse 3 - General Ulcer D/C NN Start: 09/18/20 11:11 Freq: Status: Active Protocol: Activity Type Activity Date Activity User E-Sign Co-Sign Detail Recorded Client Recorded Date Recorded By Document 09/18/20 11:56 MW [id number] 09/18/20 12:00 MW 09/18/20 11:56 Wound Care Nurse 3 #4 L Posterior Thigh -Ulcer Cleansing Rinsed/ Irrigated with Saline -Foul Odor after Cleansing No -Negative Pressure Wound Therapy N/A -Primary Dressing Applied Fibracol Plus 4x4 -Primary Dressing Covered/Secured with Dry Gauze, Secured with Tape -Fibracol Plus 4x4 1 #3 Coccyx -Ulcer Cleansing Rinsed/ Irrigated with Saline -Foul Odor after Cleansing No -Negative Pressure Wound Therapy N/A -Other Dressing fibracol -Primary Dressing Covered/Secured with Dry Gauze, Secured with Tape Treatment Response Procedure Tolerated Well Vital Signs Temperature (97.8 F-99.1 F) 98.0 F Temperature Source Temporal Pulse Rate (60-100) 95 Respiratory Rate (12-18) 20 H Respiratory rate source Observation Oxygen Delivery Method Room Air Blood Pressure (90/60-120/80) 93/58 L Blood Pressure Mean (mm Hg) 69 Source Monitor Position Sitting Blood Pressure Location Left Forearm Pain Scale: 0-10 Numeric Is Patient Pain Free? Yes Teaching: Wound Center Dressing Your Wound -Person Taught Patient -Teaching Method Discussion, Demonstration -Response to teaching Verbalize understanding WC - Visit Discharge Discharge Condition Stable Ambulatory Status Wheelchair Transportation Private Auto Accompanied by sister Medication Reconcilliation completed & No provided to patient/care provider Clinical Summary of Care Provided Yes Wound debrided: left groin cluster No debridement was completed today - Healed - Additional Wound Wound debrided: left posterior thigh Laterality: Left Wound Grade/Stage: Stage 2 Type of Debridement: Excisional debridement Anesthesia Used: 4% Lidocaine Solution Depth: Down to and including healthy tissue, in the subcutaneous layer Percentage of wound debrided: 100 Instrument Used: - - gauze Tissue Removed: Yellow slough, devitalized tissue Severity: Fat Layer Exposed Amount of bleeding with debridement: Mild Bleeding Controlled with: Compression and gauze Patient tolerated procedure: Patient tolerated procedure well - Additional Wound Wound debrided: coccyx Laterality: Not Applicable Wound Grade/Stage: Stage 3 Type of Debridement: Excisional debridement Anesthesia Used: 4% Lidocaine Solution Depth: Down to and including healthy tissue, in the subcutaneous layer Percentage of wound debrided: 100 Instrument Used: 3mm curette Tissue Removed: Yellow slough, devitalized tissue Severity: Fat Layer Exposed Amount of bleeding with debridement: Mild Bleeding Controlled with: Compression and gauze Patient tolerated procedure: Patient tolerated procedure well Assessment/Plan Assessment: ulcers of left groin. morbid obesity. Candidal intertrigo. Stage 3 pressure ulcer of coccyx Plan: Pat's ulcers were evaluated today. Left groin cluster has healed. Coccyx has improved and posterior thigh improved. I will have her continue to use Fibracol to the ulcers of her coccyx as well as the left posterior thigh ulcer. She should continue to use ABD pads to her inguinal fold area to absorb moisture and prevent ulcers from developing due to the heavy drainage. She should change ABDs to left groin area 2-3 times/day as needed for soiling through of heavy drainage. Diflucan will be continued once weekly to treat candidal intertrigo. Will have her take this weekly to every other week due to sweating and heat and her body habitus and chronic yeast which are causing her to develop ulcers. Encouraged her to increase protein intake and offload the areas of her ulcers. Advised to call with any fever, chills, increased. drainage. Due to the chronic stage 3 pressure ulcer of her coccyx she would benefit from offloading mattress such as alternating pressure mattress. 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 Concerned for possible sepsis given her UTI and her blood pressure was low. CBC drawn and she was advised to go to ER if she starts to feel worse. F/u in 2 weeks. Follow-up sooner should new or concerning symptoms arise. Note: [employer] speech recognition gutter mouth cutter software was used to create portions of this document. Sound-alike and misspelled words, as well as other gutter mouth cutter errors may be contained in the documentation.
[2020-09-18 13:04] LABS: Absolute Lymphocyte Count 1.41 X10^3/uL (0.83-4.51); Absolute Neutrophil Count 3.1 X10^3/uL (2.0-7.7); Basophil# 0.05 X10^3/uL; Basophil% 0.9 % (0-1); Eosinophil# 0.22 X10^3/uL; Eosinophils% 3.8 % (0-5); Hematocrit 29.1 % (37-47); Hemoglobin 8.5 g/dL (12.0-15.0); Lymphocyte # 1.41 X10^3/ul (4.0); Lymphocyte % 24.7 % (19-41); Mean Corp Hgb Conc 29.2 g/dL (32-36); Mean Corpuscular Hgb 25.9 pg (27.0-32.0); Mean Corpuscular Volume 88.7 fL (81-99); Mean Platelet Vol. 9.3 fl (6.2-12.0); Monocyte# 0.91 X10^3/uL; Monocyte% 15.9 % (0-10); NRBC Flagged by Analyzer 0 % (0-5); Neutrophil # 3.09 X10^3/uL (2.7-7.7); Platelet Count 530 K/mm3 (150-450); RBC Distribution Width CV 18.8 % (11.6-14.6); RBC Distribution Width SD 61.6 fl (35.1-43.9); Red Blood Count 3.28 M/mm3 (4.2-5.4); White Blood Count 5.7 K/mm3 (4.4-11.0)
[2020-10-09 10:59] VITALS: BP 113/42; PULSE 78; RESP 18; TEMP 35.5; BMI 48.3
--- NOTE | 2020-10-09 12:58 | PN.PCM_ITS ---
(1) Pressure ulcer of left thigh Status: Chronic Qualifiers: Pressure injury stage: stage 2 Code(s): L89.229 - Pressure ulcer of left hip, unspecified stage (2) Ulcer of abdomen wall with fat layer exposed Status: Chronic Code(s): L98.492 - Non-pressure chronic ulcer of skin of other sites with fat layer exposed (3) Pressure ulcer of coccygeal region, stage 3 Status: Chronic Code(s): L89.153 - Pressure ulcer of sacral region, stage 3 (4) Morbid obesity Status: Chronic Code(s): E66.01 - Morbid (severe) obesity due to excess calories (5) UTI (urinary tract infection) due to urinary indwelling catheter Status: Chronic Qualifiers: Indwelling urinary catheter type: cystostomy catheter Encounter type: sequela Qualified Code(s): T83.510S - Infection and inflammatory reaction due to cystostomy catheter, sequela; N39.0 - Urinary tract infection, site not specified Code(s): T83.511A - Infection and inflammatory reaction due to indwelling urethral catheter, initial encounter; N39.0 - Urinary tract infection, site not specified Comment: Chronic gram negative bacteria (6) Candidal intertrigo Status: Chronic Code(s): B37.2 - Candidiasis of skin and nail Type of Wound Date of Service: 10/09/20 Chief Complaint: ulcers of left groin and abdomen, pressure ulcer of coccyx History of Wound: Samra is a 74 yo woman who presented to the wound center for ulcers of left groin and abdomen referred by wound nurse at [facility]. She was hospitalized at [facility] for urosepsis multiple times. She was on IV antibiotics of Meropenem and Vancomycin. She is morbidly obese and has problems with candidal intertrigo and has ulcers that open frequently for several years. She was using towels to keep moisture from accumulating under her skin folds but this has been ineffective. She started using InstaDry sheets since discharge from the hospital which has improved the moisture in her folds. She has been using nystatin powder as well. She had been using bacitracin to the ulcer of her abdomen. She has an indwelling suprapubic catheter that is changed monthly. She has heavy drainage from her ulcers. She is wheelchair bound and has an aid that helps her daily for a few hours per day. She denies fever or chills. In May 2019, she reports that she has a chronic ulcer of her coccyx area that was previously surgically debrided that comes and goes and has gotten worse since she was in the [facility] in early 2018. Progress of Wound: Samra is here for follow up of ulcers of her left posterior thigh and coccyx. She is tolerating Fibracol dressings to coccyx and posterior thigh. She uses ABD pads and a pillowcase to wick away moisture from her inguinal folds. She maintains improvement in erythema and the groin ulcers are healed. She has had improvement to coccyx ulcer and left upper posterior thigh ulcer. She is tolerating fibracol to her coccyx ulcer and has moderate to heavy drainage from this ulcer. Her mid-abdomen ulcer remains healed. The ulcer to her left posterior thigh occurred while hospitalized, from shearing force of repositioning and transferring, and continued pressure. She has been using Fibracol to the left posterior thigh ulcer with improvement. She recently had a UTI and completed treatment with Cipro and Augmentin on Monday but has had some continued hematuria. She denies fever or chills, nausea, vomiting, or diarrhea. 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 - Physical Exam Vital Signs Temp Pulse Resp BP 96 F L 78 18 113/42 L 10/09/20 10:59 10/09/20 10:59 10/09/20 10:59 10/09/20 10:59 General: Alert, Oriented x3, Cooperative, No apparent distress HEENT: Atraumatic, Normocephalic Oral: Moist Mucosa Abdomen: Obese Skin: Ulcer/ Wound Wound Measurements and Assessment WC - Nurse 1 - General Ulcer Measurement Start: 09/18/20 11:11 Freq: Status: Active Protocol: Activity Type Activity Date Activity User E-Sign Co-Sign Detail Recorded Client Recorded Date Recorded By Document 10/09/20 10:59 BRET [id number] 10/09/20 11:09 RB 10/09/20 10:59 Wound Center Nurse 1 [Ulcer Assessment] #4 L Posterior Thigh -Combined with other wound No -Current Size (cm) - Length 0.6 -Current Size (cm) - Width 1.2 -Current Size (cm) - Depth 0.1 -Total Square Cm 0.72 -Tunneling No -Undermining/Tunneling No -Circular Undermining No -Exudate Amt Small -Exudate Type Serosanguineous -Wound Margin Flat & Intact -Granulation Amt Medium (34-66%) -Granulation Quality Rienzi -Slough/Fibrin Yes -Necrosis Amt None Present (0 %) -Necrotic Tissue Type Adherent Slough -Structure Exposed N/A -Texture (Jessica-wound Skin Appearance) Assessed, Friable -Moisture (Jessica-wound Skin Appearance Assessed ) -Color (Jessica-wound Skin Appearance) Assessed -Temperature (Jessica-wound Skin No Abnormality Appearance) (Pt Warm) -Tenderness on Palpation (Jessica-wound No Skin Appearance) -Ulcer Cleansing Wound Cleanser -Foul Odor after Cleansing No -Anesthetic Used 5% Lidocaine Gel #3 Coccyx -Combined with other wound No -Current Size (cm) - Length 1 -Current Size (cm) - Width 0.6 -Current Size (cm) - Depth 0.4 -Total Square Cm 0.6 -Tunneling No -Undermining/Tunneling No -Circular Undermining No -Exudate Amt Small -Exudate Type Serosanguineous -Wound Margin Thickened -Granulation Amt Medium (34-66%) -Granulation Quality Rienzi -Slough/Fibrin Yes -Necrosis Amt Medium (34-66%) -Necrotic Tissue Type Adherent Slough -Structure Exposed N/A -Texture (Jessica-wound Skin Appearance) Assessed, Excoriation, Scarring -Moisture (Jessica-wound Skin Appearance Assessed ) -Color (Jessica-wound Skin Appearance) Assessed -Temperature (Jessica-wound Skin No Abnormality Appearance) (Pt Warm) -Tenderness on Palpation (Jessica-wound No Skin Appearance) -Ulcer Cleansing Wound Cleanser -Foul Odor after Cleansing No -Anesthetic Used 5% Lidocaine Gel WC - Nurse 3 - General Ulcer D/C NN Start: 09/18/20 11:11 Freq: Status: Active Protocol: Activity Type Activity Date Activity User E-Sign Co-Sign Detail Recorded Client Recorded Date Recorded By Document 10/09/20 12:04 ALLAN [id number] 10/09/20 12:05 ALLAN 10/09/20 12:04 Wound Care Nurse 3 [Wound Dressing] #4 L Posterior Thigh -Ulcer Cleansing Wound Cleanser -Foul Odor after Cleansing No -Other Dressing fibricol -Primary Dressing Covered/Secured Dry Gauze, with Secured with Tape #3 Coccyx -Ulcer Cleansing Rinsed/ Irrigated with Saline -Foul Odor after Cleansing No -Other Dressing fibricol -Primary Dressing Covered/Secured Dry Gauze, with Secured with Tape [Post Procedure Tolerated] -Treatment Response Procedure Tolerated Well WC - Visit Discharge [Visit Discharge Information] -Discharge Condition Stable -Ambulatory Status Wheelchair [Facility Notification] -Facility Type Home Health -Orders Sent Yes Psych/Mental Status: Normal Affect, Appropriate Debridement Note Post-Debridement Measurements/Treatment WC - Nurse 2 - General Ulcer CM Notes Start: 09/18/20 11:11 Freq: Status: Active Protocol: Activity Type Activity Date Activity User E-Sign Co-Sign Detail Recorded Client Recorded Date Recorded By Document 09/18/20 11:37 MW [id number] 09/18/20 11:56 MW 09/18/20 11:37 Wound Center Nurse 2 #4 L Posterior Thigh -Time 11:52 -Correct Patient Yes -Correct Side, Site, Position Yes -Correct Procedure Yes -Procedure Performed Yes -Type of Procedure Debridement -Clinical Debridement Epidermis / Dermis -Tissue Removed Epidermis -Post Debridement (cm) - Length 0.6 -Post Debridement (cm) - Width 2.0 -Post Debridement (cm) - Depth 0.1 -Total Square (Post) (cm) 1.20 -Area of Debridement (cm) - Length 0.6 -Area of Debridement (cm) - Width 2.0 -Total Square (Area) (cm) 1.20 -Tunneling No -Undermining/Tunneling No -Circular Undermining No -Wound/Ulcer Outcome Not Healed -Ulcer Cleansing Rinsed/ Irrigated with Saline -Foul Odor after Cleansing No -Bioengineered Tissue No -Bleeding Controlled with Pressure -Offloading No -Treatment Response Procedure Tolerated Well -Debridement - Open, 1st 20sq cm Yes #3 Coccyx -Time 11:53 -Correct Patient Yes -Correct Side, Site, Position Yes -Correct Procedure Yes -Procedure Performed Yes -Type of Procedure Debridement -Clinical Debridement Subcutaneous -Tissue Removed Subcutaneous -Post Debridement (cm) - Length 0.4 -Post Debridement (cm) - Width 0.9 -Post Debridement (cm) - Depth 0.3 -Total Square (Post) (cm) 0.36 -Area of Debridement (cm) - Length 0.4 -Area of Debridement (cm) - Width 0.9 -Total Square (Area) (cm) 0.36 -Tunneling No -Undermining/Tunneling No -Circular Undermining No -Wound/Ulcer Outcome Not Healed -Ulcer Cleansing Rinsed/ Irrigated with Saline -Foul Odor after Cleansing No -Bioengineered Tissue No -Bleeding Controlled with Pressure -Offloading No -Treatment Response Procedure Tolerated Well -Debridement - Subq, 1st 20sq cm Yes #1 left abd fold cluster -Time 11:54 -Correct Patient Yes -Correct Side, Site, Position Yes -Correct Procedure Yes -Procedure Performed No -Post Debridement (cm) - Length 0 -Post Debridement (cm) - Width 0 -Post Debridement (cm) - Depth 0 -Total Square (Post) (cm) 0 -Wound/Ulcer Outcome Healed- Epithelialized Pain Scale: 0-10 Numeric Is Patient Pain Free? Yes WC - Nurse 3 - General Ulcer D/C NN Start: 09/18/20 11:11 Freq: Status: Active Protocol: Activity Type Activity Date Activity User E-Sign Co-Sign Detail Recorded Client Recorded Date Recorded By Document 09/18/20 11:56 MW [id number] 09/18/20 12:00 MW Document 10/09/20 12:04 PL [id number] 10/09/20 12:05 PL 09/18/20 10/09/20 11:56 12:04 Wound Care Nurse 3 #4 L Posterior Thigh -Ulcer Cleansing Rinsed/ Wound Cleanser Irrigated with Saline -Foul Odor after Cleansing No No -Negative Pressure Wound Therapy N/A -Primary Dressing Applied Fibracol Plus 4x4 -Other Dressing fibricol -Primary Dressing Covered/Secured with Dry Gauze, Dry Gauze, Secured with Secured with Tape Tape -Fibracol Plus 4x4 1 #3 Coccyx -Ulcer Cleansing Rinsed/ Rinsed/ Irrigated with Irrigated with Saline Saline -Foul Odor after Cleansing No No -Negative Pressure Wound Therapy N/A -Other Dressing fibracol fibricol -Primary Dressing Covered/Secured with Dry Gauze, Dry Gauze, Secured with Secured with Tape Tape Treatment Response Procedure Procedure Tolerated Well Tolerated Well Vital Signs Temperature (97.8 F-99.1 F) 98.0 F Temperature Source Temporal Pulse Rate (60-100) 95 Respiratory Rate (12-18) 20 H Respiratory rate source Observation Oxygen Delivery Method Room Air Blood Pressure (90/60-120/80) 93/58 L Blood Pressure Mean (mm Hg) 69 Source Monitor Position Sitting Blood Pressure Location Left Forearm Pain Scale: 0-10 Numeric Is Patient Pain Free? Yes Teaching: Wound Center Dressing Your Wound -Person Taught Patient -Teaching Method Discussion, Demonstration -Response to teaching Verbalize understanding WC - Visit Discharge Discharge Condition Stable Stable Ambulatory Status Wheelchair Wheelchair Transportation Private Auto Accompanied by sister Medication Reconcilliation completed & No provided to patient/care provider Clinical Summary of Care Provided Yes Facility Type Home Health Orders Sent Yes Wound debrided: coccyx Laterality: Not Applicable Wound Grade/Stage: Stage 3 Type of Debridement: Excisional debridement Anesthesia Used: 4% Lidocaine Solution Depth: Down to and including healthy tissue, in the subcutaneous layer Percentage of wound debrided: 100 Instrument Used: 3mm curette Tissue Removed: Yellow slough, devitalized tissue Severity: Fat Layer Exposed Amount of bleeding with debridement: Mild Bleeding Controlled with: Compression and gauze Patient tolerated procedure well - Additional Wound Wound debrided: left posterior thigh Laterality: Left Wound Grade/Stage: Stage 2 Type of Debridement: Selective debridement Anesthesia Used: 4% Lidocaine Solution Depth: Down to and including healthy tissue Percentage of wound debrided: 100 Instrument Used: - - gauze Tissue Removed: Yellow slough, devitalized tissue Severity: Fat Layer Exposed Amount of bleeding with debridement: Mild Bleeding Controlled with: Compression and gauze Patient tolerated procedure: Patient tolerated procedure well Assessment/Plan Active Problems (Last Reviewed 08/08/20 @ 10:[address] Jose Yu MD) Pressure ulcer of left thigh (Chronic) Ulcer of abdomen wall with fat layer exposed (Chronic) Pressure ulcer of coccygeal region, stage 3 (Chronic) Morbid obesity (Chronic) UTI (urinary tract infection) due to urinary indwelling catheter (Chronic) Chronic gram negative bacteria Candidal intertrigo (Chronic) Assessment: ulcers of left groin - healed. morbid obesity. Candidal intertrigo. Stage 3 pressure ulcer of coccyx. Stage 2 pressure ulcer left posterior thigh Plan: Pat's ulcers were evaluated today. Left groin cluster remains healed. Coccyx has improved and posterior thigh improved. I will have her continue to use Fibracol to the ulcers of her coccyx as well as the left posterior thigh ulcer. She should continue to use ABD pads to her inguinal fold area to absorb moisture and prevent ulcers from developing due to the heavy drainage. She should change ABDs to left groin area 2-3 times/day as needed for soiling through of heavy drainage. Diflucan will be continued once weekly to treat candidal intertrigo. Will have her take this weekly to every other week due to sweating and heat and her body habitus and chronic yeast which are causing her to develop ulcers. Encouraged her to increase protein intake and offload the areas of her ulcers. Advised to call with any fever, chills, increased. drainage. Due to the chronic stage 3 pressure ulcer of her coccyx she would benefit from offloading mattress such as alternating pressure mattress. 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 Concerned for possible ongoing UTI - refilled her prescriptions for cipro and augmentin. F/u in 2 weeks. Follow-up sooner should new or concerning symptoms arise. Note: [employer] speech recognition superintendent system operation software was used to create portions of this document. Sound-alike and misspelled words, as well as other superintendent system operation errors may be contained in the documentation.
== END 2020-10-12 23:59 ==
LOC: WC 11:00
PROVIDERS: Family Provider Family Medicine; PCP Family Medicine; Referring Provider Family Medicine; Visit Provider Family Medicine
DX: L89.153 Pressure ulcer of sacral region, stage 3 (principal); L89.892 Pressure ulcer of other site, stage 2; E66.01 Morbid (severe) obesity due to excess calories; N39.0 Urinary tract infection, site not specified; T83.511A Infection and inflammatory reaction due to indwelling urethral catheter, initial encounter; B37.2 Candidiasis of skin and nail; Z99.3 Dependence on wheelchair
CPT/HCPCS: 11042; 85025; 97597

== ENCOUNTER 2020-10-14 16:40 | Inpatient (IN) | payer MEDICARE, OTHER, SELFPAY ==
[2020-10-14] VITALS (9 sets, daily range): BP systolic 117–151; BP diastolic 68–135; PULSE 81–101; RESP 14–19; TEMP 36.6–37.4; O2SAT 91–99; BMI 46.3
--- NOTE | 2020-10-14 17:18 | EKG12_ITS ---
Test Reason : MENTAL ALT Blood Pressure : / mmHG Vent. Rate : 090 BPM Atrial Rate : 090 BPM P-R Int : 164 ms QRS Dur : 076 ms QT Int : 384 ms P-R-T Axes : 029 020 038 degrees QTc Int : 469 ms Sinus rhythm with marked sinus arrhythmia Low voltage QRS Borderline ECG Confirmed by WINDY THOMPSON, ROLAND ([id number]), supervising film or videotape editor JAMI TOLENTINO ([id number]) on 10/16/2020 3:33:50 PM Referred By: TOÑO Confirmed By:RICK TEMPLE MD
--- NOTE | 2020-10-14 17:37 | RAD_ITS ---
STUDY: X-RAY CHEST REASON FOR EXAM: Female, 75 years old. CONFUSION, FEVER, BLACK URINE DRAINING FROM CATHETER. TECHNIQUE: AP portable COMPARISON: 08/07/2020 FINDINGS: There is interstitial thickening in the lower lobes with patchy areas of slightly increased density in left lower lobe possibly representing atypical viral pneumonia.. There is no demonstrated pleural abnormality. Heart is enlarged. Normal mediastinum and peace. Normal visualized pulmonary arteries. Mildly calcified aortic arch and descending thoracic aorta. Normal visualized thoracic spine. Normal visualized ribs, clavicles, and shoulders. There is no demonstrated abnormality of the visualized soft tissue structures of the upper abdomen. RAD/Chest 1 View (Portable) IMPRESSION: Possible early changes of Covid 19 pneumonia in the lower lobes greater on the left. Clinical correlation recommended Electronically Signed: Jaswant Garcia MD at 18:02 EST , Service support ,
[2020-10-14 17:47] LABS: ALB/GLOB Ratio 0.3 RATIO (0.9-2.4); AST(SGOT) 5 U/L (15-37); Alanine Aminotransfer ALT/SGPT 11 U/L (13-56); Albumin, Serum 2.2 g/dL (3.2-5.0); Alkaline Phosphatase 77 U/L (45-117); Anion Gap 7 (5-15); BUN 25 mg/dL (7-18); BUN/Creat Ratio 12.3 RATIO (10-20); Calcium,Total 9.2 mg/dL (8.5-10.1); Chloride 105 mmol/L (98-107); Creatinine, Serum 2.03 mg/dL (0.55-1.02); EST Glomerular Filtration Rate 25 mL/min (>60); Est Glom Filt Rate - Afr Amer 31 mL/min (>60); Estimated Creatinine Clearance 25.41 ml/min; Globulin 7.1 g/dL (2.2-4.2); Glucose 126 mg/dL (74-106); Potassium 4.3 mmol/L (3.5-5.1); Protein, Total 9.3 g/dL (6.4-8.2); Sodium Level 138 mmol/L (136-145)
[2020-10-14 17:49] LABS: Lactic Acid 1.9 mmol/L (0.4-1.9)
[2020-10-14 17:54] LABS: Absolute Lymphocyte Count 1.33 X10^3/uL (0.83-4.51); Absolute Neutrophil Count 5.9 X10^3/uL (2.0-7.7); Basophil# 0.04 X10^3/uL; Basophil% 0.5 % (0-1); Eosinophil# 0.08 X10^3/uL; Hemoglobin 8.5 g/dL (12.0-15.0); Lymphocyte # 1.33 X10^3/ul (4.0); Mean Corp Hgb Conc 29.3 g/dL (32-36); Mean Corpuscular Hgb 25.8 pg (27.0-32.0); Mean Corpuscular Volume 87.9 fL (81-99); Monocyte# 0.97 X10^3/uL; Monocyte% 11.7 % (0-10); NRBC Flagged by Analyzer 0 % (0-5); Neutrophil # 5.85 X10^3/uL (2.7-7.7); Neutrophil % 70.2 % (47-70); Platelet Count 514 K/mm3 (150-450); RBC Distribution Width SD 60.8 fl (35.1-43.9); White Blood Count 8.3 K/mm3 (4.4-11.0)
[2020-10-14 18:30] LABS: Base Excess 2 mmol/L (-2 to +2); Bicarbonate 26.8 mmol/L (22-26); Blood Gas Specimen Type ART; O2 Delivery Device Room Air; PO2 73 mmHG (75-100); SITE L Radial; SO2 94 % (95-99); Total Carbon Dioxide 28 mmol/L; pCO2 43.4 mmHg (35-45)
[2020-10-14] MEDS: 0.9% Normal Saline 1,000 ML 999 ML IV (19:59)
[2020-10-14 20:48] LABS: Bacteria 0 SEEN /hpf (None Seen); Mucous, Urine 0 SEEN /hpf (<or=2+); Red Blood Cells-Urine 0 SEEN /hpf (0-5); Squamous Epithelial Cells - UA 0 SEEN /hpf (5-10)
[2020-10-14 20:50] LABS: Color, Urine Brown (Yellow); Glucose, Dipstick Normal (Normal); Ketone-Dipstick 5 mg/dl (Negative); Leukocyte Esterase-Dipstick 500 /ul (Negative); Nitrite-Dipstick Positive (Negative); Occult Blood-Urine 250 /ul (Negative); Protein-Dipstick 500 mg/dl (Negative); Specific Gravity, Urine 1.015 (1.002-1.030); Urine Bilirubin Dipstick Negative (Negative); Urine Clarity Turbid (Clear); Urine Urobilinogen Normal (Normal); Urine pH 6.5 (5.0 - 8.0)
--- NOTE | 2020-10-14 20:53 | PCM.HP.STD ---
Problem List (1) UTI (urinary tract infection) Status: Acute (2) Wheelchair dependence Status: Chronic (3) Anemia Status: Chronic Qualifiers: Anemia type: iron deficiency Iron deficiency anemia type: chronic blood loss Qualified Code(s): D50.0 - Iron deficiency anemia secondary to blood loss (chronic) (4) Pressure ulcer of left thigh Status: Chronic Qualifiers: Pressure injury stage: stage 2 Qualified Code(s): L89.222 - Pressure ulcer of left hip, stage 2 (5) History of atrial fibrillation Status: Chronic (6) Ulcer of abdomen wall with fat layer exposed Status: Chronic (7) Ulcer of left groin with fat layer exposed Status: Chronic (8) Pressure ulcer of coccygeal region, stage 3 Status: Chronic (9) Morbid obesity Status: Chronic (10) Anxiety and depression Status: Chronic (11) HLD (hyperlipidemia) Status: Chronic Qualifiers: Hyperlipidemia type: unspecified Qualified Code(s): E78.5 - Hyperlipidemia, unspecified (12) UTI (urinary tract infection) due to urinary indwelling catheter Status: Acute Qualifiers: Indwelling urinary catheter type: cystostomy catheter Encounter type: sequela Qualified Code(s): T83.510S - Infection and inflammatory reaction due to cystostomy catheter, sequela; N39.0 - Urinary tract infection, site not specified Comment: Chronic gram negative bacteria (13) Debility Status: Chronic (14) MICHAELLE (acute kidney injury) Status: Acute (15) Depression Status: Chronic Qualifiers: Depression Type: unspecified Qualified Code(s): F32.9 - Major depressive disorder, single episode, unspecified (16) VITA (obstructive sleep apnea) Status: Chronic (17) Candidal intertrigo Status: Chronic History of Present Illness Date of Admission: 10/14/20 Chief Complaint: confusion The patient is a 75 year old F with a significant history of morbid obesity; hyperlipidemia; and who is wheel chair bound presenting with confusion. History was taken from emergency department doctor as patient was confused. Although she said was was that she has a UTI. She was saying yes to every question. Reportedly patient's caregiver checked on her at 9 AM and she was in a wheelchair. Patient caregiver returned again at 4 PM the same day and patient was in the same position. Reportedly patient was confused. Reportedly anytime patient has UTI she becomes confused. Past Medical History Past Medical History (Chronic Problems): Chronic Problems (Last Reviewed 10/14/20 @ 21:[address] Kyree Dutta MD) Wheelchair dependence (Chronic) Anemia (Chronic) Pressure ulcer of left thigh (Chronic) History of atrial fibrillation (Chronic) Ulcer of abdomen wall with fat layer exposed (Chronic) Ulcer of left groin with fat layer exposed (Chronic) Pressure ulcer of coccygeal region, stage 3 (Chronic) Morbid obesity (Chronic) Anxiety and depression (Chronic) HLD (hyperlipidemia) (Chronic) Debility (Chronic) Depression (Chronic) VITA (obstructive sleep apnea) (Chronic) Candidal intertrigo (Chronic) Medical History: Medical History (Last Reviewed 10/15/20 @ 01:[address] Kyree Dutta MD) History of atrial fibrillation (Chronic) Z86.79 Ulcer of abdomen wall with fat layer exposed (Chronic) L98.492 Ulcer of left groin with fat layer exposed (Chronic) L98.492 Pressure ulcer of coccygeal region, stage 3 (Chronic) L89.153 Morbid obesity (Chronic) E66.01 Anxiety and depression (Chronic) F41.9, F32.9 HLD (hyperlipidemia) (Chronic) E78.5 UTI (urinary tract infection) due to urinary indwelling catheter (Acute) T83.511A, N39.0 Chronic gram negative bacteria Severe sepsis (Inactive) A41.9, R65.20 V tach (Inactive) I47.2 VITA (obstructive sleep apnea) (Chronic) G47.33 Candidal intertrigo (Chronic) B37.2 Debility R53.81 DM2 (diabetes mellitus, type 2) E11.9 Essential hypertension I10 VITA (obstructive sleep apnea) G47.33 Allergies adhesive tape Allergy (Verified 10/14/20 16:40) blisters Influenza Virus Vaccines Allergy (Verified 10/14/20 16:40) shortness of breath/severe wheezing iron Allergy (Verified 10/14/20 16:40) from IV form chest pressure and heart palpitations Sulfa (Sulfonamide Antibiotics) Allergy (Verified 10/14/20 16:40) Shortness of breath bactrim does not work for her-per pcp paperwork meloxicam [From Mobic] Adverse Reaction (Verified 10/14/20 16:40) gi upset seasonal allergies Allergy (Uncoded 10/14/20 16:40) Other Home Medications: Ambulatory Orders Medication Instructions Recorded Furosemide [Lasix] 20 mg PO BID 09/30/13 Albuterol Inhaler [Ventolin Hfa] 2 puff INHALATION Q4H PRN PRN 10/30/18 Gabapentin [Neurontin] 600 mg PO BID 10/30/18 Nystatin Powder [Mycostatin Powder] 1 applicatio TOPICAL BID PRN PRN 10/30/18 Oxybutynin Chloride [Ditropan Xl] 15 mg PO DAILY 10/30/18 Cyanocobalamin (Vitamin B-12) 1,000 mcg PO DAILY 12/17/18 [B-12] Pravastatin [Pravachol] 20 mg PO QHS 12/17/18 Duloxetine HCl 60 mg PO QHS 03/22/19 Fluconazole 200 mg PO SA 07/02/19 Hydrocodone Bitart/Apap 5-325 1 tab PO Q6H PRN PRN 07/02/19 [[place] 5/325] Venlafaxine XR [Effexor Xr] 150 mg PO BID 07/02/19 Ascorbic Acid [Vitamin C] 500 mg PO BID 08/18/19 DiphenhydrAMINE [Benadryl] 20 mg PO BID PRN PRN 08/18/19 Pantoprazole Sodium [Protonix] 40 mg PO DAILY 08/18/19 Potassium Chloride [K-Dur] 10 meq PO DAILYCM 08/18/19 C,E,Zinc,Copper 11/Routk0i/Lut 1 ea PO TID 10/19/19 [Eye Health Adult 50 Plus Sftgl] Cholecalciferol (VIT D3) [Vitamin 1,000 unit PO DAILY 10/19/19 D3] L.acidoph,Paracasei, B.lactis 1 ea PO DAILY PRN PRN 10/19/19 [Probiotic] Ranitidine [Zantac] 150 mg PO DAILY PRN PRN 10/19/19 Baclofen 20 mg PO DINNER 03/20/20 Baclofen [Lioresal] 10 mg PO BID 03/20/20 Citric AC/Gluconolact/Mag Carb 30 ml IR TID 08/07/20 [Renacidin Irrigation Solution] Metoprolol Tartrate 25 mg PO BID 08/07/20 Amoxicillin/Potassium Clav 1 ea PO BID #4 tab 08/13/20 [Augmentin 875-125 Tablet] Aspirin [Aspirin, Baby] 81 mg PO DAILY #0 MDD [facility] 08/13/20 Ciprofloxacin 250 mg PO BID #4 ml 08/13/20 John (unflavored) [John Packet] 1 packet PO BIDCM #60 packet 08/13/20 Methenamine Hippurate [Hiprex] 1 gm PO BID #0 08/13/20 Surgical History: Surgical History (Last Reviewed 10/15/20 @ 01:[address] Kyree Dutta MD) H/O: hysterectomy Z90.710 Same time as open gallbladder History of cholecystectomy Z90.49 Open, same time as hysterectomy History of tonsillectomy Z90.89 Hx of appendectomy Z90.49 Surgical History: cholecystectomy, hysterectomy, - - Suprapubic catheter placement. Psychiatric History: Anxiety, Bipolar, Depression [employer] History: No pertinent [employer] SCI[employer] history Smoking Status: Never smoker - *Family History Maternal History Items: Diabetes, Heart Disease - Her father had a CABG and CHF Paternal History Items: Heart Disease Review of Systems Cardiovascular: Denies: Palpitations Unable to obtain accurate/complete ROS d/t: Confusion. Unable to reach household personal assistant via phone. VTE Information - Inpt Only VTE Present on Admission: No VTE Mechan Device Prophylaxis: None VTE Pharm Prophylaxis ordered?: Yes Patient Problems: Active and Suspected Problems (Last Reviewed 10/14/20 @ 21:[address] Kyree Dutta MD) UTI (urinary tract infection) (Acute) UTI (urinary tract infection) due to urinary indwelling catheter (Acute) Chronic gram negative bacteria MICHAELLE (acute kidney injury) (Acute) - Physical Exam Vitals/I&O's: Vital Signs Temp Pulse Resp BP Pulse Ox 98.1 F 81 17 126/84 H 91 10/14/20 19:09 10/14/20 20:11 10/14/20 20:11 10/14/20 20:11 10/14/20 20:11 Oxygen Delivery Method Room Air Weight: 142.4 kg Body Mass Index (BMI) 46.3 General: Alert, Confused HEENT: Atraumatic, PERRLA, EOMI, Normocephalic Neck: Supple, No JVD, Negative Carotid Bruits Lungs: Clear to auscultation, Normal air movement Cardiovascular: Regular rate, Normal S1, No murmurs Abdomen: Bowel Sounds Present, Soft, Non Tender, - - Suprapubic catheter in place with mild redness around suprapubic catheter diarrhea. Extremities: No edema, Capillary Refill Less than 3 Seconds Skin: No rashes, No breakdown Musculoskeletal: No Tenderness to Palpation of Joints or Extremities Neurological: Cranial nerves II-XII grossly intact Psych/Mental Status: Normal Affect, Appropriate Microbiology Past 72 Hours 10/14/20 18:00 Mucosa - Nose SARS-CoV-2 Antigen (Rapid) - Final Laboratory Results 10/14/20 16:25: WBC 8.3, RBC 3.30 L, Hgb 8.5 L, Hct 29.0 L, MCV 87.9, MCH 25.8 L, MCHC 29.3 L, RDW Std Deviation 60.8 H, RDW Coeff of Jessi 19.0 H, Plt Count 514 H, MPV 11.0, Immature Gran % (Auto) 0.600, Neut % (Auto) 70.2 H, Lymph % (Auto) 16.0 L, [place] % (Auto) 11.7 H, Eos % (Auto) 1.0, Baso % (Auto) 0.5, Absolute Neuts (auto) 5.9, Absolute Lymphs (auto) 1.33, Nucleated RBC % 0 10/14/20 16:25: Sodium 138, Potassium 4.3, Chloride 105, Carbon Dioxide 26.0, Anion Gap 7, BUN 25 H, Creatinine 2.03 H, Estim Creat Clear Calc 25.41, Est GFR (MDRD) Af Amer 31 L, Est GFR (MDRD) Non-Af 25 L, BUN/Creatinine Ratio 12.3, Glucose 126 H, Calcium 9.2, Total Bilirubin 0.30, AST 5 L, ALT 11 L, Alkaline Phosphatase 77, Troponin I < 0.015, Total Protein 9.3 H, Albumin 2.2 L, Globulin 7.1 H, Albumin/Globulin Ratio 0.3 L 10/14/20 16:50: Lactic Acid 1.9 10/14/20 18:23: Specimen Type ART, Sample Site L Radial, pH 7.40, Bicarbonate Actual 26.8 H, Total CO2 28, Base Excess 2, O2 Saturation 94 L, ABG pCO2 43.4, ABG pO2 73 L, O2 Delivery Device Room Air 10/14/20 20:45: Urine Color Pending, Urine Clarity Pending, Urine pH Pending, Ur Specific [place] Pending, Urine Protein Pending, Urine Glucose (UA) Pending, Urine Ketones Pending, Urine Occult Blood Pending, Urine Nitrite Pending, Urine Bilirubin Pending, Urine Urobilinogen Pending, Ur Leukocyte Esterase Pending, Urine RBC Pending, Urine WBC Pending, Ur Squamous Epith Cells Pending, Urine Bacteria Pending, Urine Mucus Pending Current Medications Sodium Chloride () 1,000 mls @ 999 mls/hr IV .Q1H1M ONE Stop: 10/14/20 20:56 Last Admin: 10/14/20 19:59 Dose: 999 mls/hr Documented by: Ceftriaxone Sodium (Rocephin) 1 gm in 50 mls @ 100 mls/hr IV X1 ONE Stop: 10/14/20 21:16 Assessment/Plan All Active Problems (Last Reviewed 10/14/20 @ 21:[address] Kyree Dutta MD) UTI (urinary tract infection) (Acute) UTI (urinary tract infection) due to urinary indwelling catheter (Acute) MICHAELLE (acute kidney injury) (Acute) Suprapubic catheter dysfunction (Resolved) Acute encephalopathy secondary to acute cystitis. With indwelling suprapubic catheter contributing. Suprapubic catheter was changed at the emergency department. Urinalysis at emergency department was abnormal. Ceftriaxone started at the emergency department and continued. Urine culture was ordered at the emergency department; Follow. Blood culture was ordered emergency department; Follow. MICHAELLE Creatinine 2.03 Baseline creatinine around 1.54. BUN 25 Gentle IV hydration Trend BMP. Diabetes mellitus Patient with mild hyperglycemia on presentation Diabetic diet ordered. Trend BMP. Abnormal chest x-ray Impression of chest x-ray by radiologist: Possible early changes of COVID-19 pneumonia in the lower lobes greater on the left. Actual chest x-ray image was independently reviewed and correlated with previous: Current cxr not different from previous. COVID-19 antigen ordered at the emergency department negative. COVID-19 PCR ordered at the ED returned negative DVT prophylaxis Subcutaneous Lovenox ordered. Inpatient E&M: 90280 Init Hosp L3
[2020-10-14] MEDS: Ceftriaxone 1 GM/50 ML BAG IV (21:12)
[2020-10-14 21:13] LABS: White Blood Cells >100 SEEN /hpf (0-5)
--- NOTE | 2020-10-14 22:35 | ED.DCSUM_ITS ---
- ER Visit Summary Date of Service: 10/14/20 Chief Complaint: Confusion History of Present Illness: The patient is a 75 F presenting with confusion. Per patient's family, patient's home nurse checked on her at 9 AM. They came back at 4 PM she was still sitting in the same place in her wheelchair. They we re concerned that she did not move throughout the day. She has had increasing confusion. Family states she presents like this when she has urinary tract infections. She has a suprapubic catheter that she has had for over 10 years. She has dark foul-smelling urine. Physical Examination: Vitals are stable. Temperature 99.3. Alert no acute distress. HEENT exam is unremarkable. Neck is supple. Lungs are clear and equal bilaterally. Heart is regular rate and rhythm. Abdomen is soft obese nondistended. Suprapubic catheter Extremities are unremarkable. Skin is warm and dry. No focal neurologic deficit. Remainder of exam is unremarkable. Emergency Department Course and Treatment: CBC shows hemoglobin 8.5, platelet 514. Chemistry showed glucose 126, BUN 25, creatinine 2.03, previous creatinine 1.5. Urinalysis shows over 100 white blood cells. Urine culture was sent. Blood cultures were sent. Lactic acid is normal. Troponin is negative. Rapid Covid is negative. Chest x-ray shows possible early changes of Covid 19 pneumonia in the lower lobes greater on the left. Due to x-ray findings, hospitalist requests PCR Covid. Patient was given Rocephin IV. She will be admitted. Disposition: Admission Impression: UTI, altered mental status This note was generated with [employer] dictation software. It may contain incorrect words, spelling, and punctuation that were not noted in review of the chart prior to signing ED Disposition - Plan for ED Patient: Referrals: Colby Valenzuela DO [Primary Care Provider] -
[2020-10-15] VITALS (7 sets, daily range): BP systolic 121–166; BP diastolic 59–125; PULSE 81–110; RESP 16–20; TEMP 36.7–37.4; O2SAT 94–99; BMI 51.7
[2020-10-15] MEDS: 0.9% Normal Saline 1,000 ML 75 ML IV ×2 (00:45→14:33)
[2020-10-15] MEDS: 0.9% Saline Lock 10 ML Syringe IV (00:45)
[2020-10-15] MEDS: Nystatin Powder 15gm Bottle 1 APPLIC TOPICAL ×3 (03:43→21:49)
[2020-10-15 07:59] LABS: Absolute Lymphocyte Count 0.85 X10^3/uL (0.83-4.51); Absolute Neutrophil Count 3.1 X10^3/uL (2.0-7.7); Basophil# 0.03 X10^3/uL; Basophil% 0.6 % (0-1); Eosinophil# 0.14 X10^3/uL; Eosinophils% 2.9 % (0-5); Hematocrit 23.6 % (37-47); Hemoglobin 6.8 g/dL (12.0-15.0); Lymphocyte # 0.85 X10^3/ul (4.0); Lymphocyte % 17.5 % (19-41); Mean Corp Hgb Conc 28.8 g/dL (32-36); Mean Corpuscular Hgb 25.1 pg (27.0-32.0); Mean Corpuscular Volume 87.1 fL (81-99); Mean Platelet Vol. 9.1 fl (6.2-12.0); Monocyte# 0.68 X10^3/uL; NRBC Flagged by Analyzer 0 % (0-5); Neutrophil # 3.12 X10^3/uL (2.7-7.7); Platelet Count 383 K/mm3 (150-450); RBC Distribution Width CV 18.8 % (11.6-14.6); RBC Distribution Width SD 59.3 fl (35.1-43.9); Red Blood Count 2.71 M/mm3 (4.2-5.4); White Blood Count 4.9 K/mm3 (4.4-11.0)
[2020-10-15 08:10] LABS: Anion Gap 4 (5-15); BUN 23 mg/dL (7-18); BUN/Creat Ratio 14.3 RATIO (10-20); Calcium,Total 8.7 mg/dL (8.5-10.1); Chloride 109 mmol/L (98-107); Creatinine, Serum 1.61 mg/dL (0.55-1.02); EST Glomerular Filtration Rate 33 mL/min (>60); Est Glom Filt Rate - Afr Amer 40 mL/min (>60); Estimated Creatinine Clearance 26.47 ml/min; Glucose 91 mg/dL (74-106); Potassium 3.8 mmol/L (3.5-5.1); Sodium Level 140 mmol/L (136-145)
[2020-10-15] MEDS: Enoxaparin 30 MG/0.3 ML Syringe SC (09:10)
--- NOTE | 2020-10-15 10:35 | CASEMGMT ---
RN CM Face to Face with patient for initial transition planning/care coordination assessment. RN CM introduced self and role at [facility]. Patient lying in bed, alert and oriented. Patient willing to participate in assessment and is able to answer all questions appropriately. Care providers, pharmacy, and demographics verified. Patient wishes to discharge home, denies need for home health at this time. Patient states she has no further needs or concerns at this time. CM to follow for discharge planning needs that may arise. PCP: Bianca Specialists: Darryl urologist Preferred [facility]acy: [facility] Insurance: [facility], Human Prescription Benefit: yes Living Will/HPOA: yes sister Esperanza Ribeiro LNOK: sister Living Arrangements: Patient lives with caregiver in a single story home with no steps to enter the home. Caregiver assists with care. Transportation: sister, caregiver DME/HHC: Patient states she has sit to stand, grab bars, shower chair, hospital bed, electric WC, and oxygen 2lpm PRN through [employer]. Patient has had [facility]HC in the past. Disposition Plan: Patient to discharge home with family support and follow-up plans in place. Asya CHUA, RN, CM
--- NOTE | 2020-10-15 11:59 | PCM.PN.HOSP ---
Patient Problems: Active and Suspected Problems (Last Reviewed 10/15/20 @ 01:[address] Kyree Dutta MD) UTI (urinary tract infection) (Acute) UTI (urinary tract infection) due to urinary indwelling catheter (Acute) Chronic gram negative bacteria MICHAELLE (acute kidney injury) (Acute) Subjective: Patient seen and examined. She was admitted with a complaint of altered mental status and was found to have a UTI. She is been managed for UTI and is on IV ceftriaxone. Patient seen this morning. She feels weak. She denies any fever, chills, nausea vomiting or diarrhea. Review of symptoms otherwise negative. She has remained hemodynamically stable. Vitals/I&O's: Vital Signs Temp Pulse Resp BP Pulse Ox 98.3 F 110 H 16 121/59 H 95 10/15/20 09:05 10/15/20 09:05 10/15/20 09:05 10/15/20 09:05 10/15/20 09:05 Oxygen Delivery Method Room Air Weight: 301 lb 2.423 oz Body Mass Index (BMI) 51.7 Intake and Output for Last 24 Hours 10/13/20 10/14/20 10/15/20 23:59 23:59 23:59 Intake Total 1050 / 1050 400 / 400 Output Total 1150 / 1150 Balance 1050 / 1050 -750 / -750 General: Alert, Oriented x3, Cooperative, - - Super morbid obesity HEENT: Atraumatic, PERRLA, EOMI, Normocephalic Oral: Dry Mucosa Neck: Supple, No JVD, Negative Carotid Bruits Lungs: Clear to auscultation, Normal air movement, No rhonchi, No wheeze Cardiovascular: Regular rate, Regular Rhythm, Normal S1, Normal S2, No murmurs Abdomen: Bowel Sounds Present, Soft, Non Tender, Non-Distended, No Hepato-splenomegaly, Obese Extremities: No clubbing, No cyanosis, No edema, Capillary Refill Less than 3 Seconds Skin: No rashes, No breakdown Musculoskeletal: No Tenderness to Palpation of Joints or Extremities Lymphatic: No Cervical, Supraclavicular, or Inguinal Adenopathy Neurological: Cranial nerves II-XII grossly intact Psych/Mental Status: Normal Affect, Appropriate, Alert and oriented to time, place, person, mood and affect Microbiology Past 72 Hours 10/14/20 18:00 Mucosa - Nose SARS-CoV-2 Antigen (Rapid) - Final Laboratory Results 10/14/20 16:25: WBC 8.3, RBC 3.30 L, Hgb 8.5 L, Hct 29.0 L, MCV 87.9, MCH 25.8 L, MCHC 29.3 L, RDW Std Deviation 60.8 H, RDW Coeff of Jessi 19.0 H, Plt Count 514 H, MPV 11.0, Immature Gran % (Auto) 0.600, Neut % (Auto) 70.2 H, Lymph % (Auto) 16.0 L, [place] % (Auto) 11.7 H, Eos % (Auto) 1.0, Baso % (Auto) 0.5, Absolute Neuts (auto) 5.9, Absolute Lymphs (auto) 1.33, Nucleated RBC % 0 10/14/20 16:25: Sodium 138, Potassium 4.3, Chloride 105, Carbon Dioxide 26.0, Anion Gap 7, BUN 25 H, Creatinine 2.03 H, Estim Creat Clear Calc 25.41, Est GFR (MDRD) Af Amer 31 L, Est GFR (MDRD) Non-Af 25 L, BUN/Creatinine Ratio 12.3, Glucose 126 H, Calcium 9.2, Total Bilirubin 0.30, AST 5 L, ALT 11 L, Alkaline Phosphatase 77, Troponin I < 0.015, Total Protein 9.3 H, Albumin 2.2 L, Globulin 7.1 H, Albumin/Globulin Ratio 0.3 L 10/14/20 16:50: Lactic Acid 1.9 10/14/20 18:23: Specimen Type ART, Sample Site L Radial, pH 7.40, Bicarbonate Actual 26.8 H, Total CO2 28, Base Excess 2, O2 Saturation 94 L, ABG pCO2 43.4, ABG pO2 73 L, O2 Delivery Device Room Air 10/14/20 20:45: Urine Color Brown, Urine Clarity Turbid, Urine pH 6.5, Ur Specific [place] 1.015, Urine Protein 500 H, Urine Glucose (UA) Normal, Urine Ketones 5 H, Urine Occult Blood 250 H, Urine Nitrite Positive H, Urine Bilirubin Negative, Urine Urobilinogen Normal, Ur Leukocyte Esterase 500 H, Urine RBC 0 SEEN, Urine WBC >100 SEEN, Ur Squamous Epith Cells 0 SEEN, Urine Bacteria 0 SEEN, Urine Mucus 0 SEEN 10/14/20 21:10: COVID-19 (MYRON) Negative 10/15/20 07:00: WBC 4.9, RBC 2.71 L, Hgb 6.8 L, Hct 23.6 L, MCV 87.1, MCH 25.1 L, MCHC 28.8 L, RDW Std Deviation 59.3 H, RDW Coeff of Jessi 18.8 H, Plt Count 383, MPV 9.1, Immature Gran % (Auto) 1.000 H, Neut % (Auto) 64.0, Lymph % (Auto) 17.5 L, [place] % (Auto) 14.0 H, Eos % (Auto) 2.9, Baso % (Auto) 0.6, Absolute Neuts (auto) 3.1, Absolute Lymphs (auto) 0.85, Nucleated RBC % 0 10/15/20 07:00: Sodium 140, Potassium 3.8, Chloride 109 H, Carbon Dioxide 27.0, Anion Gap 4 L, BUN 23 H, Creatinine 1.61 H, Estim Creat Clear Calc 26.47, Est GFR (MDRD) Af Amer 40 L, Est GFR (MDRD) Non-Af 33 L, BUN/Creatinine Ratio 14.3, Glucose 91, Calcium 8.7 Diagnostic Data Chest X-Ray 10/14/20 17:37 IMPRESSION: Possible early changes of Covid 19 pneumonia in the lower lobes greater on the left. Clinical correlation recommended Electronically Signed: Jaswant Garcia MD at 18:02 EST , Service support , Current Medications Acetaminophen (Acetaminophen 325 Mg Tablet) 650 mg PO Q6H PRN PRN PRN Reason: Pain Score 1-10/Temp > 100.7 F Enoxaparin Sodium (Enoxaparin 40 Mg/0.4 Ml Syringe) 40 mg SC DAILY [facility] Sodium Chloride () 1,000 mls @ 75 mls/hr IV .[id number] [facility] Last Admin: 10/15/20 00:45 Dose: 75 mls/hr Documented by: Ceftriaxone Sodium (Rocephin) 1 gm in 50 mls @ 100 mls/hr IV Q24H [facility] Sodium Chloride () 250 mls @ 15 mls/hr IV .[id number] PRN PRN Reason: Saline Flush Sodium Chloride () 250 mls @ 15 mls/hr IV .[id number] PRN PRN Reason: Additional IVPB Infusion Melatonin (Melatonin 3 Mg Tablet) 3 mg PO QHS PRN PRN PRN Reason: INSOMNIA Nystatin (Nystatin Powder 15gm Bottle) 1 applic TOPICAL BID ZARINA; Protocol Last Admin: 10/15/20 09:11 Dose: 1 applicatio Documented by: Ondansetron HCl (Ondansetron 4 Mg/2 Ml Vial) 4 mg IV Q8H PRN PRN PRN Reason: NAUSEA/VOMITING Sodium Chloride (0.9% Saline Lock 10 Ml Syringe) 10 - 40 ml IV UD PRN PRN Reason: SALINE FLUSH Last Admin: 10/15/20 00:45 Dose: 10 ml Documented by: STROKE Vital Signs/Narrative: Vital Signs Temp Pulse Resp BP Pulse Ox 10/15/20 09:05 98.3 F 110 H 16 121/59 H 95 Medical Necessity - Tobacco Use Smoking Status: Never smoker Assessment/Plan All Active Problems (Last Reviewed 10/15/20 @ 01:[address] Kyree Dutta MD) UTI (urinary tract infection) (Acute) UTI (urinary tract infection) due to urinary indwelling catheter (Acute) MICHAELLE (acute kidney injury) (Acute) Suprapubic catheter dysfunction (Resolved) # acute metabolic encephalopathy due to UTI Resolved. Patient now alert and oriented. Suprapubic catheter change in the ED. On IV ceftriaxone. Urine culture growing E. coli. Blood cultures pending. PT OT on board. Fall precautions. COVID test done in ED on admission was negative. #UTI: As above #MICHAELLE on CKD 3 And was 2.03 on admission but has trended down to 1.61. Baseline is around 1.54. Continue gentle hydration. #Type 2 diabetes mellitus: Metformin on hold on account of MICHAELLE on CKD. Insulin sliding scale. Checks AC at bedtime. #Hyperlipidemia: On statin DVT prophylaxis: Lovenox Inpatient E&M: [id number] Subs Hosp L2
[2020-10-15] MEDS: Baclofen 10 MG Tablet 20 MG PO (18:04)
[2020-10-15] MEDS: DULoxetine Hcl 60 MG Capsule PO (18:06)
--- NOTE | 2020-10-15 19:32 | NURSING ---
suprapubic cath continues to have drainage around insertion site. cath size 24fr with 10cc balloon. per patient, cath at home normally 24fr with 30cc balloon. area cleaned and dried. dressing placed around cath. dry pillow case placed in between abdominal fold after placing nystatin powder. report provided to dry can tender RN.
[2020-10-15] MEDS: Venlafaxine XR 150 MG Capsule PO (21:48)
[2020-10-15] MEDS: Baclofen 10 MG Tablet PO (21:48)
[2020-10-15] MEDS: Famotidine 20 MG Tablet PO (21:48)
[2020-10-15] MEDS: Gabapentin 600 MG Tablet PO (21:48)
[2020-10-15] MEDS: Furosemide 20 MG Tablet PO (21:48)
[2020-10-15] MEDS: Metoprolol Tartrate 25 MG Tablet PO (21:48)
[2020-10-15] MEDS: Pravastatin 20 MG Tablet PO (21:48)
[2020-10-15] MEDS: Ceftriaxone 1 GM/50 ML BAG IV (21:49)
[2020-10-15 22:11] LABS: Bedside Glucose 99 mg/dL (70-110)
[2020-10-16] VITALS (15 sets, daily range): BP systolic 104–130; BP diastolic 44–62; PULSE 75–95; RESP 18; TEMP 36.8–37.5; O2SAT 94–100
[2020-10-16] MEDS: 0.9% Normal Saline 1,000 ML 75 ML IV (05:28)
[2020-10-16 06:36] LABS: Bedside Glucose 109 mg/dL (70-110)
[2020-10-16 06:43] LABS: Anion Gap 6 (5-15); BUN 19 mg/dL (7-18); BUN/Creat Ratio 11.9 RATIO (10-20); Calcium,Total 8.2 mg/dL (8.5-10.1); Chloride 107 mmol/L (98-107); Creatinine, Serum 1.59 mg/dL (0.55-1.02); EST Glomerular Filtration Rate 34 mL/min (>60); Est Glom Filt Rate - Afr Amer 41 mL/min (>60); Estimated Creatinine Clearance 26.81 ml/min; Glucose 108 mg/dL (74-106); Potassium 3.6 mmol/L (3.5-5.1); Sodium Level 139 mmol/L (136-145)
[2020-10-16 06:47] LABS: Absolute Lymphocyte Count 0.91 X10^3/uL (0.83-4.51); Absolute Neutrophil Count 2.9 X10^3/uL (2.0-7.7); Basophil# 0.03 X10^3/uL; Basophil% 0.6 % (0-1); Eosinophil# 0.13 X10^3/uL; Eosinophils% 2.8 % (0-5); Hematocrit 22.9 % (37-47); Hemoglobin 6.5 g/dL (12.0-15.0); Lymphocyte # 0.91 X10^3/ul (4.0); Lymphocyte % 19.4 % (19-41); Mean Corp Hgb Conc 28.4 g/dL (32-36); Mean Corpuscular Hgb 24.4 pg (27.0-32.0); Mean Corpuscular Volume 86.1 fL (81-99); Mean Platelet Vol. 8.9 fl (6.2-12.0); NRBC Flagged by Analyzer 0 % (0-5); Neutrophil # 2.87 X10^3/uL (2.7-7.7); Neutrophil % 61.3 % (47-70); Platelet Count 370 K/mm3 (150-450); RBC Distribution Width CV 18.9 % (11.6-14.6); RBC Distribution Width SD 59.6 fl (35.1-43.9); Red Blood Count 2.66 M/mm3 (4.2-5.4); White Blood Count 4.7 K/mm3 (4.4-11.0)
--- NOTE | 2020-10-16 07:50 | PCM.PN.HOSP ---
Patient Problems: Active and Suspected Problems (Last Reviewed 10/15/20 @ 01:[address] Kyree Dutta MD) UTI (urinary tract infection) (Acute) UTI (urinary tract infection) due to urinary indwelling catheter (Acute) Chronic gram negative bacteria MICHAELLE (acute kidney injury) (Acute) Subjective: Patient seen and examined. No active events overnight. She has been managed for UTI. Patient noted to be anemic today with hemoglobin of 6.5. Hemoglobin was 8.5 on admission. She denies any dark stools and there is no clear foci of bleeding. She has otherwise remained hemodynamically stable. Vitals/I&O's: Vital Signs Temp Pulse Resp BP Pulse Ox 99.1 F 85 18 130/62 H 96 10/16/20 02:17 10/16/20 02:17 10/16/20 02:17 10/16/20 02:17 10/16/20 07:05 Oxygen Delivery Method Room Air Weight: 301 lb 2.423 oz Body Mass Index (BMI) 51.7 Intake and Output for Last 24 Hours 10/14/20 10/15/20 10/16/20 23:59 23:59 23:59 Intake Total 1050 / 1050 1750 / 2050 1500 / 1500 Output Total 1400 / 1580 280 / 280 Balance 1050 / 1050 350 / 470 1220 / 1220 General: Alert, Oriented x3, Cooperative, - - Super morbid obesity HEENT: Atraumatic, PERRLA, EOMI, Normocephalic Oral: Dry Mucosa Neck: Supple, No JVD, Negative Carotid Bruits Lungs: Clear to auscultation, Normal air movement, No rhonchi, No wheeze Cardiovascular: Regular rate, Regular Rhythm, Normal S1, Normal S2, No murmurs Abdomen: Bowel Sounds Present, Soft, Non Tender, Non-Distended, No Hepato-splenomegaly, Obese Extremities: No clubbing, No cyanosis, No edema, Capillary Refill Less than 3 Seconds Skin: No rashes, No breakdown Musculoskeletal: No Tenderness to Palpation of Joints or Extremities Lymphatic: No Cervical, Supraclavicular, or Inguinal Adenopathy Neurological: Cranial nerves II-XII grossly intact Psych/Mental Status: Normal Affect, Appropriate, Alert and oriented to time, place, person, mood and affect Microbiology Past 72 Hours 10/14/20 20:45 Urine Catheter - Henry Urine Culture - Preliminary Presumptive E. coli 10/14/20 18:00 Mucosa - Nose SARS-CoV-2 Antigen (Rapid) - Final Laboratory Results 10/15/20 07:00: WBC 4.9, RBC 2.71 L, Hgb 6.8 L, Hct 23.6 L, MCV 87.1, MCH 25.1 L, MCHC 28.8 L, RDW Std Deviation 59.3 H, RDW Coeff of Jessi 18.8 H, Plt Count 383, MPV 9.1, Immature Gran % (Auto) 1.000 H, Neut % (Auto) 64.0, Lymph % (Auto) 17.5 L, [place] % (Auto) 14.0 H, Eos % (Auto) 2.9, Baso % (Auto) 0.6, Absolute Neuts (auto) 3.1, Absolute Lymphs (auto) 0.85, Nucleated RBC % 0 10/15/20 07:00: Sodium 140, Potassium 3.8, Chloride 109 H, Carbon Dioxide 27.0, Anion Gap 4 L, BUN 23 H, Creatinine 1.61 H, Estim Creat Clear Calc 26.47, Est GFR (MDRD) Af Amer 40 L, Est GFR (MDRD) Non-Af 33 L, BUN/Creatinine Ratio 14.3, Glucose 91, Calcium 8.7 10/15/20 21:41: POC Glucose 99 10/16/20 05:54: WBC 4.7, RBC 2.66 L, Hgb 6.5 L, Hct 22.9 L, MCV 86.1, MCH 24.4 L, MCHC 28.4 L, RDW Std Deviation 59.6 H, RDW Coeff of Jessi 18.9 H, Plt Count 370, MPV 8.9, Immature Gran % (Auto) 0.900, Neut % (Auto) 61.3, Lymph % (Auto) 19.4, [place] % (Auto) 15.0 H, Eos % (Auto) 2.8, Baso % (Auto) 0.6, Absolute Neuts (auto) 2.9, Absolute Lymphs (auto) 0.91, Nucleated RBC % 0 10/16/20 05:54: Sodium 139, Potassium 3.6, Chloride 107, Carbon Dioxide 26.0, Anion Gap 6, BUN 19 H, Creatinine 1.59 H, Estim Creat Clear Calc 26.81, Est GFR (MDRD) Af Amer 41 L, Est GFR (MDRD) Non-Af 34 L, BUN/Creatinine Ratio 11.9, Glucose 108 H, Calcium 8.2 L 10/16/20 06:32: POC Glucose 109 Current Medications Acetaminophen (Acetaminophen 325 Mg Tablet) 650 mg PO Q6H PRN PRN PRN Reason: Pain Score 1-10/Temp > 100.7 F Baclofen (Baclofen 10 Mg Tablet) 20 mg PO DINNER [facility] Last Admin: 10/15/20 18:04 Dose: 20 mg Documented by: Baclofen (Baclofen 10 Mg Tablet) 10 mg PO BID [facility] Last Admin: 10/15/20 21:48 Dose: 10 mg Documented by: Duloxetine HCl (Duloxetine Hcl 60 Mg Capsule) 60 mg PO DINNER [facility] Last Admin: 10/15/20 18:06 Dose: 60 mg Documented by: Famotidine (Famotidine 20 Mg Tablet) 20 mg PO QHS [facility] Last Admin: 10/15/20 21:48 Dose: 20 mg Documented by: Furosemide (Furosemide 20 Mg Tablet) 20 mg PO BID [facility] Last Admin: 10/15/20 21:48 Dose: 20 mg Documented by: Gabapentin (Gabapentin 600 Mg Tablet) 600 mg PO BID [facility] Last Admin: 10/15/20 21:48 Dose: 600 mg Documented by: Sodium Chloride () 1,000 mls @ 75 mls/hr IV .[id number] [facility] Last Admin: 10/16/20 05:28 Dose: 75 mls/hr Documented by: Ceftriaxone Sodium (Rocephin) 1 gm in 50 mls @ 100 mls/hr IV Q24H [facility] Last Infusion: 10/15/20 23:01 Dose: Infused Documented by: Sodium Chloride () 250 mls @ 15 mls/hr IV .[id number] PRN PRN Reason: Saline Flush Sodium Chloride () 250 mls @ 15 mls/hr IV .[id number] PRN PRN Reason: Additional IVPB Infusion Pantoprazole Sodium 40 mg/ (Sodium Chloride) 110 mls @ 330 mls/hr IV Q12 [facility] Lisinopril (Lisinopril 10 Mg Tablet) 10 mg PO DAILY [facility] Melatonin (Melatonin 3 Mg Tablet) 3 mg PO QHS PRN PRN PRN Reason: INSOMNIA Methenamine Hippurate (Methenamine Hippurate 1 Gm Tablet) 1 gm PO BID [facility] Metoprolol Tartrate (Metoprolol Tartrate 25 Mg Tablet) 25 mg PO BID [facility] Last Admin: 10/15/20 21:48 Dose: 25 mg Documented by: Nystatin (Nystatin Powder 15gm Bottle) 1 applic TOPICAL BID [facility]; Protocol Last Admin: 10/15/20 21:49 Dose: 1 applicatio Documented by: Ondansetron HCl (Ondansetron 4 Mg/2 Ml Vial) 4 mg IV Q8H PRN PRN PRN Reason: NAUSEA/VOMITING Potassium Chloride (Potassium Chloride 10 Meq Tablet) [facility] Pravastatin Sodium (Pravastatin 20 Mg Tablet) 20 mg PO QHS [facility] Last Admin: 10/15/20 21:48 Dose: 20 mg Documented by: Sodium Chloride (0.9% Saline Lock 10 Ml Syringe) 10 - 40 ml IV UD PRN PRN Reason: SALINE FLUSH Last Admin: 10/15/20 00:45 Dose: 10 ml Documented by: Tolterodine Tartrate (Tolterodine Tartrate 4 Mg Cap.Sa) 4 mg PO DAILY [facility] Venlafaxine HCl (Venlafaxine Xr 150 Mg Capsule) 150 mg PO BID [facility] Last Admin: 10/15/20 21:48 Dose: 150 mg Documented by: STROKE Vital Signs/Narrative: Vital Signs Pulse Ox 10/16/20 07:05 96 Medical Necessity - Tobacco Use Smoking Status: Never smoker Assessment/Plan All Active Problems (Last Reviewed 10/15/20 @ 01:[address] Kyree Dutta MD) UTI (urinary tract infection) (Acute) UTI (urinary tract infection) due to urinary indwelling catheter (Acute) MICHAELLE (acute kidney injury) (Acute) Suprapubic catheter dysfunction (Resolved) # acute metabolic encephalopathy due to UTI Resolved. Patient now alert and oriented. Suprapubic catheter change in the ED. On IV ceftriaxone. Urine culture growing E. coli. Blood cultures pending. PT OT on board. Fall precautions. COVID test done in ED on admission was negative. #UTI: As above #Acute on chronic anemia Hb today is 6.5; was 8.5 on admission. Does have a history of chronic anemia will check stool for occult blood she had colonoscopy in July 2010 which showed diverticulosis in the sigmoid and descending colon, and nonbleeding internal hemorrhoids. Surgeon was unable to get to the cecum, and recommended air contrast barium enema. also had EGD on [facility] same date which showed normal esophagus and erythematous mucosa in the prepyloric region of hte stomach and normal duodenum #MICHAELLE on CKD 3 And was 2.03 on admission but has trended down to 1.659. Baseline is around 1.54. Continue gentle hydration. #Type 2 diabetes mellitus: Metformin on hold on account of MICHAELLE on CKD. Insulin sliding scale. Checks AC at bedtime. #Hyperlipidemia: On statin DVT prophylaxis: SCDs; DC lovenox o/a of worsening anemia Inpatient E&M: [id number] [facility] L3
[2020-10-16] MEDS: Furosemide 20 MG Tablet PO ×2 (09:43→22:23)
[2020-10-16] MEDS: Venlafaxine XR 150 MG Capsule PO ×2 (09:43→22:23)
[2020-10-16] MEDS: Nystatin Powder 15gm Bottle 1 APPLIC TOPICAL ×2 (09:44→22:47)
[2020-10-16] MEDS: Metoprolol Tartrate 25 MG Tablet PO ×2 (09:44→22:23)
[2020-10-16] MEDS: Baclofen 10 MG Tablet PO ×2 (09:44→22:47)
[2020-10-16] MEDS: Tolterodine Tartrate 4 MG CAP.SA PO (09:44)
[2020-10-16] MEDS: Lisinopril 10 MG Tablet PO (09:45)
[2020-10-16] MEDS: Gabapentin 600 MG Tablet PO ×2 (09:45→22:23)
[2020-10-16 11:51] LABS: Bedside Glucose 104 mg/dL (70-110)
[2020-10-16] MEDS: DULoxetine Hcl 60 MG Capsule PO (16:50)
[2020-10-16] MEDS: Baclofen 10 MG Tablet 20 MG PO (16:50)
[2020-10-16 17:21] LABS: Bedside Glucose 101 mg/dL (70-110)
[2020-10-16] MEDS: Senna Tablet 2 TABLET PO (22:23)
[2020-10-16] MEDS: Famotidine 20 MG Tablet PO (22:23)
[2020-10-16] MEDS: Pravastatin 20 MG Tablet PO (22:23)
[2020-10-16] MEDS: Ceftriaxone 1 GM/50 ML BAG IV (22:47)
[2020-10-17] MEDS: Acetaminophen 325 MG Tablet 650 MG PO (01:11)
[2020-10-17] MEDS: 0.9% Normal Saline 1,000 ML 75 ML IV (03:32)
[2020-10-17 03:38] VITALS: BP 120/71; PULSE 77; RESP 18; TEMP 36.9; O2SAT 95
[2020-10-17 06:36] LABS: Bedside Glucose 121 mg/dL (70-110)
[2020-10-17 07:16] VITALS: O2SAT 90
[2020-10-17 08:08] LABS: Absolute Lymphocyte Count 1.02 X10^3/uL (0.83-4.51); Absolute Neutrophil Count 3.2 X10^3/uL (2.0-7.7); Basophil# 0.04 X10^3/uL; Basophil% 0.8 % (0-1); Eosinophil# 0.17 X10^3/uL; Eosinophils% 3.2 % (0-5); Hematocrit 27.7 % (37-47); Hemoglobin 8.3 g/dL (12.0-15.0); Lymphocyte # 1.02 X10^3/ul (4.0); Lymphocyte % 19.2 % (19-41); Mean Corpuscular Hgb 25.8 pg (27.0-32.0); Mean Platelet Vol. 8.9 fl (6.2-12.0); Monocyte% 15.1 % (0-10); NRBC Flagged by Analyzer 0 % (0-5); Neutrophil % 60.4 % (47-70); Platelet Count 349 K/mm3 (150-450); RBC Distribution Width CV 17.8 % (11.6-14.6); Red Blood Count 3.22 M/mm3 (4.2-5.4); White Blood Count 5.3 K/mm3 (4.4-11.0)
[2020-10-17 08:28] LABS: Anion Gap 6 (5-15); BUN 20 mg/dL (7-18); BUN/Creat Ratio 11.6 RATIO (10-20); Calcium,Total 8.4 mg/dL (8.5-10.1); Chloride 106 mmol/L (98-107); Creatinine, Serum 1.72 mg/dL (0.55-1.02); EST Glomerular Filtration Rate 31 mL/min (>60); Est Glom Filt Rate - Afr Amer 37 mL/min (>60); Estimated Creatinine Clearance 24.78 ml/min; Glucose 112 mg/dL (74-106); Potassium 3.5 mmol/L (3.5-5.1); Sodium Level 138 mmol/L (136-145)
--- NOTE | 2020-10-17 08:33 | CON.PCM_ITS ---
Problem List (1) UTI (urinary tract infection) Status: Acute Qualifiers: Indwelling urinary catheter type: indwelling urethral catheter Reason for Consult Date of Consultation: 10/17/20 Reason for Consultation: Suprapubic catheter dysfunction History of Present Illness: The patient is a 75 year old female who presents to the hospital with a urinary tract infection with severe pus draining from the suprapubic area. She is on antibiotics. I change her catheter today to a 24 Japanese 30 cc balloon to balloon. This was changed quite easily. Hopefully this will help with better drainage and also help with the leakage that she was having around the catheter from the prior catheter. Past Medical History Past Medical History (Chronic Problems): Chronic Problems (Last Reviewed 10/15/20 @ 01:[address] Kyree Dutta MD) Wheelchair dependence (Chronic) Anemia (Chronic) Pressure ulcer of left thigh (Chronic) History of atrial fibrillation (Chronic) Ulcer of abdomen wall with fat layer exposed (Chronic) Ulcer of left groin with fat layer exposed (Chronic) Pressure ulcer of coccygeal region, stage 3 (Chronic) Morbid obesity (Chronic) Anxiety and depression (Chronic) HLD (hyperlipidemia) (Chronic) Debility (Chronic) Depression (Chronic) VITA (obstructive sleep apnea) (Chronic) Candidal intertrigo (Chronic) Medical History: Medical History (Last Reviewed 10/17/20 @ 08:[address] Juan Ramon Andrews MD) History of atrial fibrillation (Chronic) Z86.79 Ulcer of abdomen wall with fat layer exposed (Chronic) L98.492 Ulcer of left groin with fat layer exposed (Chronic) L98.492 Pressure ulcer of coccygeal region, stage 3 (Chronic) L89.153 Morbid obesity (Chronic) E66.01 Anxiety and depression (Chronic) F41.9, F32.9 HLD (hyperlipidemia) (Chronic) E78.5 UTI (urinary tract infection) due to urinary indwelling catheter (Acute) T83.511A, N39.0 Chronic gram negative bacteria Severe sepsis (Inactive) A41.9, R65.20 V tach (Inactive) I47.2 VITA (obstructive sleep apnea) (Chronic) G47.33 Candidal intertrigo (Chronic) B37.2 Debility R53.81 DM2 (diabetes mellitus, type 2) E11.9 Essential hypertension I10 VITA (obstructive sleep apnea) G47.33 Allergies adhesive tape Allergy (Verified 10/14/20 16:40) blisters Influenza Virus Vaccines Allergy (Verified 10/14/20 16:40) shortness of breath/severe wheezing iron Allergy (Verified 10/14/20 16:40) from IV form chest pressure and heart palpitations Sulfa (Sulfonamide Antibiotics) Allergy (Verified 10/14/20 16:40) Shortness of breath bactrim does not work for her-per pcp paperwork meloxicam [From Mobic] Adverse Reaction (Verified 10/14/20 16:40) gi upset seasonal allergies Allergy (Uncoded 10/14/20 16:40) Other Home Medications: Ambulatory Orders Medication Instructions Recorded Furosemide [Lasix] 20 mg PO BID 09/30/13 Albuterol Inhaler [Ventolin Hfa] 2 puff INHALATION Q4H PRN PRN 10/30/18 Gabapentin [Neurontin] 600 mg PO BID 10/30/18 Oxybutynin Chloride [Ditropan Xl] 15 mg PO DAILY 10/30/18 Pravastatin [Pravachol] 20 mg PO QHS 12/17/18 Duloxetine HCl 60 mg PO DINNER 03/22/19 Venlafaxine XR [Effexor Xr] 150 mg PO BID 07/02/19 Potassium Chloride [K-Dur] 10 meq PO DAILYCM 08/18/19 Baclofen 20 mg PO DINNER 03/20/20 Baclofen [Lioresal] 10 mg PO BID 03/20/20 Metoprolol Tartrate 25 mg PO BID 08/07/20 Aspirin [Aspirin, Baby] 81 mg PO DAILY #0 [facility] 08/13/20 Methenamine Hippurate [Hiprex] 1 gm PO BID #0 08/13/20 Famotidine 20 mg PO QHS 10/15/20 Lisinopril [Zestril] 10 mg PO DAILY 10/15/20 Metformin HCl 500 mg PO BID 10/15/20 Surgical History: Surgical History (Last Reviewed 10/15/20 @ 01:[address] Kyree Dutta MD) H/O: hysterectomy Z90.710 Same time as open gallbladder History of cholecystectomy Z90.49 Open, same time as hysterectomy History of tonsillectomy Z90.89 Hx of appendectomy Z90.49 Surgical History: cholecystectomy, hysterectomy, - - Suprapubic catheter placement. 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 Smoking Status: Never smoker - *Family History Maternal History Items: Diabetes, Heart Disease - Her father had a CABG and CHF Paternal History Items: Heart Disease Review of Systems Constitutional: Denies: Chills, Fever, Weight Change HEENT: Denies: Head Aches, Sinus Congestion, Sinus Drainage Cardiovascular: Denies: Chest Pain, Palpitations Respiratory: Denies: Cough, Shortness of breath at rest, Sputum production Gastrointestinal: Denies: Abdominal Pain, Nausea, Vomiting Genitourinary: Denies: Dysuria Musculoskeletal: Denies: Joint Pain, Joint Tenderness Skin: Denies: Rash, Wounds Neurological: Denies: Numbness, Tingling, Focal weakness Psychiatric: Denies: Anxiety, Depression, Homicidal Ideations, Suicidal Ideations Hematologic/ Lymphatic: Denies: Easy Bruising, Easy Bleeding Physical Exam - Physical Exam Vital Signs Temp 98.4 F 10/17/20 03:38 Pulse 77 10/17/20 03:38 Resp 18 10/17/20 03:38 BP 120/71 10/17/20 03:38 Pulse Ox 95 10/17/20 03:38 Intake & Output 10/15/20 10/16/20 10/17/20 23:59 23:59 23:59 Intake Total 1750 / 2050 2947.5 / 2947.5 1062.5 / 1062.5 Output Total 1400 / 1580 1480 / 1480 1000 / 1000 Balance 350 / 470 1467.5 / 1467.5 62.5 / 62.5 Weight: 136.6 kg Intake: Oral 700 / 1000 500 / 500 440 / 440 Intake, IV Amount 1050 / 1050 1647.5 / 1647.5 622.5 / 622.5 0.9% Normal Saline 1,000 ML @ 1000 / 1000 1377.5 / 1377.5 622.5 / 622.5 75 mls/hr IV .[id number] [facility] Rx#: [id number] Protonix 40 MG In 0.9% Normal 220 / 220 Saline 100 ML @ 330 mls/hr IV Q12 [facility] Rx#:[id number] Rocephin 1 gm In 50 ml @ 100 50 / 50 50 / 50 mls/hr IV Q24H [facility] Rx#:[id number] Blood Product 800 / 800 Irradiated/Leuko-Reduced Rbc 400 / 400 Unit [id number] Irradiated/Leuko-Reduced Rbc 400 / 400 Unit [id number] Output: Urine 1400 / 1580 1480 / 1480 1000 / 1000 General: Alert, Oriented x3 HEENT: Atraumatic Oral: Moist Mucosa Neck: Supple Lungs: Normal air movement Cardiovascular: Regular rate Abdomen: Soft, Obese Microbiology Past 72 Hours 10/14/20 20:10 Blood Culture - Preliminary Blood Culture (Wb) - Anticubital Left No growth in 48 hours. 10/14/20 16:50 Blood Culture - Preliminary Blood Culture (Wb) - Left Hand No growth in 48 hours. 10/14/20 20:45 Urine Culture - Final Urine Catheter - Henry Presumptive E. coli 10/14/20 18:00 SARS-CoV-2 Antigen (Rapid) - Final Mucosa - Nose Laboratory Tests Past 24 Hrs 10/16/20 10/17/20 10/17/20 08:30 07:17 07:17 WBC Pending RBC Pending Hgb Pending Hct Pending MCV Pending MCH Pending MCHC Pending RDW Std Deviation Pending RDW Coeff of Jessi Pending Plt Count Pending Neut % (Auto) Pending Absolute Neuts (auto) Pending Sodium 138 Potassium 3.5 Chloride 106 Carbon Dioxide 26.0 Anion Gap 6 BUN 20 H Creatinine 1.72 H Estim Creat Clear Calc 24.78 Est GFR (MDRD) Af Amer 37 L Est GFR (MDRD) Non-Af 31 L BUN/Creatinine Ratio 11.6 Glucose 112 H Calcium 8.4 L Blood Type A POSITIVE Antibody Screen NEGATIVE Crossmatch See Detail Assessment/Plan All Active Problems (Last Reviewed 10/15/20 @ 01:[address] Kyree Dutta MD) UTI (urinary tract infection) (Acute) UTI (urinary tract infection) due to urinary indwelling catheter (Acute) MICHAELLE (acute kidney injury) (Acute) Suprapubic catheter dysfunction (Resolved) 75-year-old female comes in for urinary tract infection, today I change her suprapubic catheter. This should help drain the bladder better nurses can flush the catheter as necessary she usually comes her office for routine monthly catheter changes.
[2020-10-17] MEDS: Gabapentin 600 MG Tablet PO (08:41)
[2020-10-17] MEDS: Nystatin Powder 15gm Bottle 1 APPLIC TOPICAL (08:41)
[2020-10-17] MEDS: Tolterodine Tartrate 4 MG CAP.SA PO (08:42)
[2020-10-17 08:43] VITALS: PULSE 79
[2020-10-17] MEDS: DULoxetine Hcl 60 MG Capsule PO (08:43)
[2020-10-17] MEDS: Furosemide 20 MG Tablet PO (08:43)
[2020-10-17] MEDS: Metoprolol Tartrate 25 MG Tablet PO (08:43)
[2020-10-17] MEDS: Venlafaxine XR 150 MG Capsule PO (08:44)
[2020-10-17] MEDS: Baclofen 10 MG Tablet PO (08:44)
[2020-10-17] MEDS: Senna Tablet 2 TABLET PO (08:45)
[2020-10-17 08:54] VITALS: BP 143/72; PULSE 79; RESP 18; TEMP 36.9; O2SAT 96
[2020-10-17 11:40] LABS: Bedside Glucose 122 mg/dL (70-110)
--- NOTE | 2020-10-17 14:16 | PCM.DC ---
- Discharge Diagnoses Current Active Problems: Current Active and Chronic Problems (Last Reviewed 10/17/20 @ 08:[address] Juan Ramon Andrews MD) Wheelchair dependence (Chronic) Anemia (Chronic) Pressure ulcer of left thigh (Chronic) UTI (urinary tract infection) (Acute) History of atrial fibrillation (Chronic) Ulcer of abdomen wall with fat layer exposed (Chronic) Ulcer of left groin with fat layer exposed (Chronic) Pressure ulcer of coccygeal region, stage 3 (Chronic) Morbid obesity (Chronic) Anxiety and depression (Chronic) HLD (hyperlipidemia) (Chronic) UTI (urinary tract infection) due to urinary indwelling catheter (Acute) Chronic gram negative bacteria Debility (Chronic) MICHAELLE (acute kidney injury) (Acute) Depression (Chronic) VITA (obstructive sleep apnea) (Chronic) Candidal intertrigo (Chronic) You will use the following diet at home:: Cardiac Your food should be the consistency of: Regular Your liquids should be the consistency of: Regular/Thin Discharge Activity: Return to Normal Activity Weight Bearing Status: Weight bearing as tolerated Call your doctor if you observe: Fever of 101 or Higher, Inability to urinate, Shortness of breath Instructions: Understanding Urinary Tract Infections (UTIs), ED Urinary Tract Infections in Women Allergies/Adverse Reactions: Allergies adhesive tape Allergy (Verified 10/14/20 16:40) blisters Influenza Virus Vaccines Allergy (Verified 10/14/20 16:40) shortness of breath/severe wheezing iron Allergy (Verified 10/14/20 16:40) from IV form chest pressure and heart palpitations Sulfa (Sulfonamide Antibiotics) Allergy (Verified 10/14/20 16:40) Shortness of breath bactrim does not work for her-per pcp paperwork meloxicam [From Mobic] Adverse Reaction (Verified 10/14/20 16:40) gi upset seasonal allergies Allergy (Uncoded 10/14/20 16:40) Other Medications to take at Discharge Furosemide [Lasix] 20 mg PO BID 09/30/13 Albuterol Inhaler [Ventolin Hfa] 2 puff INHALATION Q4H PRN PRN 10/30/18 Gabapentin [Neurontin] 600 mg PO BID 10/30/18 Oxybutynin Chloride [Ditropan Xl] 15 mg PO DAILY 10/30/18 Pravastatin [Pravachol] 20 mg PO QHS 12/17/18 Duloxetine HCl 60 mg PO DINNER 03/22/19 Venlafaxine XR [Effexor Xr] 150 mg PO BID 07/02/19 Potassium Chloride [K-Dur] 10 meq PO DAILYCM 08/18/19 Baclofen 20 mg PO DINNER 03/20/20 Baclofen [Lioresal] 10 mg PO BID 03/20/20 Metoprolol Tartrate 25 mg PO BID 08/07/20 Aspirin [Aspirin, Baby] 81 mg PO DAILY #0 [facility] 08/13/20 Methenamine Hippurate [Hiprex] 1 gm PO BID #0 08/13/20 Famotidine 20 mg PO QHS 10/15/20 Lisinopril [Zestril] 10 mg PO DAILY 10/15/20 Metformin HCl 500 mg PO BID 10/15/20 Cefdinir [Omnicef [equiv]] 300 mg PO Q12H #10 cap 10/17/20 The following prescriptions were given: Cefdinir [Omnicef [equiv]] 300 mg PO Q12H #10 cap Transmission Status: Pending to [facility] Primary Care Physician: Colby Valenzuela DO [Primary Care Provider] - Please follow up with your Primary Care Physician in: 1-2 weeks Test Results: Test results from this visit will be discussed in further detail at your follow-up appointment, if applicable. Please Follow Up With: Juan Ramon Andrews MD When: every month for suprapubic catheter change as scheduled Proposed Discharge Date: 10/17/20
--- NOTE | 2020-10-17 14:17 | DS.PCM_ITS ---
Discharge Date and Diagnosis - Problem List Patient Problems: Active and Suspected Problems (Last Reviewed 10/17/20 @ 08:[address] Juan Ramon Andrews MD) UTI (urinary tract infection) (Acute) UTI (urinary tract infection) due to urinary indwelling catheter (Acute) Chronic gram negative bacteria MICHAELLE (acute kidney injury) (Acute) Date of Admission: 10/14/20 Date of Discharge: 10/17/20 - Primary Discharge Diagnosis Acute Problems: Active Problems (Last Reviewed 10/17/20 @ 08:[address] Juan Ramon Andrews MD) UTI (urinary tract infection) (Acute) UTI (urinary tract infection) due to urinary indwelling catheter (Acute) Chronic gram negative bacteria MICHAELLE (acute kidney injury) (Acute) - Secondary Discharge Diagnosis Chronic Problems: Chronic Problems (Last Reviewed 10/17/20 @ 08:[address] Juan Ramon Andrews MD) Wheelchair dependence (Chronic) Anemia (Chronic) Pressure ulcer of left thigh (Chronic) History of atrial fibrillation (Chronic) Ulcer of abdomen wall with fat layer exposed (Chronic) Ulcer of left groin with fat layer exposed (Chronic) Pressure ulcer of coccygeal region, stage 3 (Chronic) Morbid obesity (Chronic) Anxiety and depression (Chronic) HLD (hyperlipidemia) (Chronic) Debility (Chronic) Depression (Chronic) VITA (obstructive sleep apnea) (Chronic) Candidal intertrigo (Chronic) Hospital Course and Treatment Imaging Results: Diagnostic Data Chest X-Ray 10/14/20 17:37 IMPRESSION: Possible early changes of Covid 19 pneumonia in the lower lobes greater on the left. Clinical correlation recommended Electronically Signed: Jaswant Garcia MD at 18:02 EST , Service support , Operations: None Procedures: None Summary of Care Provided: The patient is a 75 year old F with an extensive PMH as outlined who was admitted via the ED 10 on 10/14/2020 with a complaint of confusion. Patient was found to be sitting in her wheelchair from morning to evening and was confused. Patient had a history of such confusion every time she had a UTI. She had a history of an indwelling Henry catheter and catheter was changed in the ED. UA done in the ED was abnormal indicator of UTI. She was admitted and managed for acute metabolic encephalopathy due to UTI and started on IV ceftriaxone. Blood cultures were also ordered. Patient was also noted to have MICHAELLE on CKD with creatinine of 2.03, with baseline of around 1.54. Chest x-ray done was suggestive of Covid but Covid test done was negative. Urine culture grew E. coli. And and gradually trended down to her baseline. Patient felt much better. It was further complicated by anemia which is acute on chronic with hemoglobin dropping to 6.5 from 8.5 on admission. Of note, patient had been worked up for anemia on outpatient basis had not had an EGD and colonoscopy in summer 2019 which were negative and she had a subsequent barium enema with contrast which showed sigmoid diverticulosis with no evidence of diverticulitis. Stool for occult blood was ordered. Patient however did not want any general surgery consulted she says she had had an extensive work-up and she felt that the drop in hemoglobin was due to bleeding from her catheter site which she had been having problems with on outpatient basis. She therefore wanted to follow- up with her surgeon on outpatient basis. Allergy was consulted on account of dysfunction of her suprapubic catheter and this was changed from a 24 Indian cc to a 30 cc Indian balloon catheter. She remained stable and was discharged home on 10/17/2020 with a prescription for p.o. cefdinir 300 mg twice daily for 5 days. She is to follow-up with her primary care doctor and urology in 1 to 2 weeks, also to follow-up with her general surgeon on outpatient basis account of acute on chronic anemia. Patient seen and examined prior to discharge. She felt well and had no complaints. Review of systems otherwise negative. Labs and vitals reviewed. Home medication reviewed and reconciled. O/E: Vital Signs Temp Pulse Resp BP Pulse Ox 98.7 F 84 16 131/76 H 97 10/17/20 16:02 10/17/20 16:02 10/17/20 16:02 10/17/20 16:02 10/17/20 16:02 [] General: Alert, Oriented x3, Cooperative, - - Super morbid obesity HEENT: Atraumatic, PERRLA, EOMI, Normocephalic Oral: Dry Mucosa Neck: Supple, No JVD, Negative Carotid Bruits Lungs: Clear to auscultation, Normal air movement, No rhonchi, No wheeze Cardiovascular: Regular rate, Regular Rhythm, Normal S1, Normal S2, No murmurs Abdomen: Bowel Sounds Present, Soft, Non Tender, Non-Distended, No Hepato- splenomegaly, Obese Extremities: No clubbing, No cyanosis, No edema, Capillary Refill Less than 3 Seconds Skin: No rashes, No breakdown Musculoskeletal: No Tenderness to Palpation of Joints or Extremities Lymphatic: No Cervical, Supraclavicular, or Inguinal Adenopathy Neurological: Cranial nerves II-XII grossly intact Psych/Mental Status: Normal Affect, Appropriate, Alert and oriented to time, place, person, mood and affect Plan is for discharge home today, Patient Problems: Active and Suspected Problems (Last Reviewed 10/17/20 @ 08:[address] Juan Ramon Andrews MD) UTI (urinary tract infection) (Acute) UTI (urinary tract infection) due to urinary indwelling catheter (Acute) Chronic gram negative bacteria MICHAELLE (acute kidney injury) (Acute) - Physical Exam Vitals/I&O's: Vital Signs Temp Pulse Resp BP Pulse Ox 98.4 F 79 18 143/72 H 96 10/17/20 08:54 10/17/20 08:54 10/17/20 08:54 10/17/20 08:54 10/17/20 08:54 Oxygen Delivery Method Room Air Weight: 301 lb 2.423 oz Body Mass Index (BMI) 51.7 Intake and Output for Last 24 Hours 10/15/20 10/16/20 10/17/20 23:59 23:59 23:59 Intake Total 1750 / 2050 2947.5 / 2947.5 1871.25 / 1871.25 Output Total 1400 / 1580 1480 / 1480 1275 / 1275 Balance 350 / 470 1467.5 / 1467.5 596.25 / 596.25 Microbiology Past 72 Hours 10/14/20 20:10 Blood Culture (Wb) - Anticubital Left Blood Culture - Preliminary No growth in 48 hours. 10/14/20 16:50 Blood Culture (Wb) - Left Hand Blood Culture - Preliminary No growth in 48 hours. 10/14/20 20:45 Urine Catheter - Henry Urine Culture - Final Presumptive E. coli 10/14/20 18:00 Mucosa - Nose SARS-CoV-2 Antigen (Rapid) - Final Laboratory Results 10/16/20 08:30: Blood Type A POSITIVE, Antibody Screen NEGATIVE, Crossmatch See Detail 10/16/20 16:49: POC Glucose 101 10/17/20 06:29: POC Glucose 121 H 10/17/20 07:17: WBC 5.3, RBC 3.22 L, Hgb 8.3 L, Hct 27.7 L, MCV 86.0, MCH 25.8 L , MCHC 30.0 L D, RDW Std Deviation 55.0 H, RDW Coeff of Jessi 17.8 H, Plt Count 349, MPV 8.9, Immature Gran % (Auto) 1.300 H, Neut % (Auto) 60.4, Lymph % (Auto) 19.2, [place] % (Auto) 15.1 H, Eos % (Auto) 3.2, Baso % (Auto) 0.8, Absolute Neuts (auto) 3.2, Absolute Lymphs (auto) 1.02, Nucleated RBC % 0 10/17/20 07:17: Sodium 138, Potassium 3.5, Chloride 106, Carbon Dioxide 26.0, Anion Gap 6, BUN 20 H, Creatinine 1.72 H, Estim Creat Clear Calc 24.78, Est GFR (MDRD) Af Amer 37 L, Est GFR (MDRD) Non-Af 31 L, BUN/Creatinine Ratio 11.6, Glucose 112 H, Calcium 8.4 L 10/17/20 11:28: POC Glucose 122 H Current Medications Acetaminophen (Acetaminophen 325 Mg Tablet) 650 mg PO Q6H PRN PRN PRN Reason: Pain Score 1-10/Temp > 100.7 F Last Admin: 10/17/20 01:11 Dose: 650 mg Documented by: Baclofen (Baclofen 10 Mg Tablet) 20 mg PO DINNER COUNTS INCLUDE 234 BEDS AT THE [facility] Last Admin: 10/16/20 16:50 Dose: 20 mg Documented by: Baclofen (Baclofen 10 Mg Tablet) 10 mg PO BID COUNTS INCLUDE 234 BEDS AT THE [facility] Last Admin: 10/17/20 08:44 Dose: 10 mg Documented by: Duloxetine HCl (Duloxetine Hcl 60 Mg Capsule) 60 mg PO DINNER COUNTS INCLUDE 234 BEDS AT THE [facility] Last Admin: 10/17/20 08:43 Dose: 60 mg Documented by: Famotidine (Famotidine 20 Mg Tablet) 20 mg PO QHS COUNTS INCLUDE 234 BEDS AT THE [facility] Last Admin: 10/16/20 22:23 Dose: 20 mg Documented by: Furosemide (Furosemide 20 Mg Tablet) 20 mg PO BID COUNTS INCLUDE 234 BEDS AT THE [facility] Last Admin: 10/17/20 08:43 Dose: 20 mg Documented by: Gabapentin (Gabapentin 600 Mg Tablet) 600 mg PO BID COUNTS INCLUDE 234 BEDS AT THE [facility] Last Admin: 10/17/20 08:41 Dose: 600 mg Documented by: Sodium Chloride () 1,000 mls @ 75 mls/hr IV .[id number] COUNTS INCLUDE 234 BEDS AT THE [facility] Last Infusion: 10/17/20 09:15 Dose: 75 mls/hr Documented by: Ceftriaxone Sodium (Rocephin) 1 gm in 50 mls @ 100 mls/hr IV Q24H COUNTS INCLUDE 234 BEDS AT THE [facility] Last Infusion: 10/16/20 23:17 Dose: Infused Documented by: Sodium Chloride () 250 mls @ 15 mls/hr IV .[id number] PRN PRN Reason: Saline Flush Sodium Chloride () 250 mls @ 15 mls/hr IV .[id number] PRN PRN Reason: Additional IVPB Infusion Pantoprazole Sodium 40 mg/ (Sodium Chloride) 110 mls @ 330 mls/hr IV Q12 COUNTS INCLUDE 234 BEDS AT THE [facility] Last Infusion: 10/17/20 09:15 Dose: Infused Documented by: Lisinopril (Lisinopril 10 Mg Tablet) 10 mg PO DAILY COUNTS INCLUDE 234 BEDS AT THE [facility] Last Admin: 10/17/20 08:47 Dose: Not Given Documented by: Melatonin (Melatonin 3 Mg Tablet) 3 mg PO QHS PRN PRN PRN Reason: INSOMNIA Methenamine Hippurate (Methenamine Hippurate 1 Gm Tablet) 1 gm PO BID COUNTS INCLUDE 234 BEDS AT THE [facility] Metoprolol Tartrate (Metoprolol Tartrate 25 Mg Tablet) 25 mg PO BID COUNTS INCLUDE 234 BEDS AT THE [facility] Last Admin: 10/17/20 08:43 Dose: 25 mg Documented by: Nystatin (Nystatin Powder 15gm Bottle) 1 applic TOPICAL BID COUNTS INCLUDE 234 BEDS AT THE [facility]; Protocol Last Admin: 10/17/20 08:41 Dose: 1 applicatio Documented by: Ondansetron HCl (Ondansetron 4 Mg/2 Ml Vial) 4 mg IV Q8H PRN PRN PRN Reason: NAUSEA/VOMITING Potassium Chloride (Potassium Chloride 10 Meq Tablet) [facility] Last Admin: 10/17/20 08:42 Dose: 10 meq Documented by: Pravastatin Sodium (Pravastatin 20 Mg Tablet) 20 mg PO QHS COUNTS INCLUDE 234 BEDS AT THE [facility] Last Admin: 10/16/20 22:23 Dose: 20 mg Documented by: Senna (Senna Tablet) 2 tablet PO DAILY COUNTS INCLUDE 234 BEDS AT THE [facility] Last Admin: 10/17/20 08:45 Dose: 2 tablet Documented by: Sodium Chloride (0.9% Saline Lock 10 Ml Syringe) 10 - 40 ml IV UD PRN PRN Reason: SALINE FLUSH Last Admin: 10/15/20 00:45 Dose: 10 ml Documented by: Tolterodine Tartrate (Tolterodine Tartrate 4 Mg Cap.Sa) 4 mg PO DAILY COUNTS INCLUDE 234 BEDS AT THE [facility] Last Admin: 10/17/20 08:42 Dose: 4 mg Documented by: Venlafaxine HCl (Venlafaxine Xr 150 Mg Capsule) 150 mg PO BID COUNTS INCLUDE 234 BEDS AT THE [facility] Last Admin: 10/17/20 08:44 Dose: 150 mg Documented by: Discharge Diet: Low fat/ Low Cholesterol Discharge Activity: Return to Normal Activity Weight Bearing Status: Weight bearing as tolerated Call your doctor if you observe: Fever of 101 or Higher, Inability to urinate, Shortness of breath Home Medications: Medications to take at Discharge Furosemide [Lasix] 20 mg PO BID 09/30/13 Albuterol Inhaler [Ventolin Hfa] 2 puff INHALATION Q4H PRN PRN 10/30/18 Gabapentin [Neurontin] 600 mg PO BID 10/30/18 Oxybutynin Chloride [Ditropan Xl] 15 mg PO DAILY 10/30/18 Pravastatin [Pravachol] 20 mg PO QHS 12/17/18 Duloxetine HCl 60 mg PO DINNER 03/22/19 Venlafaxine XR [Effexor Xr] 150 mg PO BID 07/02/19 Potassium Chloride [K-Dur] 10 meq PO DAILYCM 08/18/19 Baclofen 20 mg PO DINNER 03/20/20 Baclofen [Lioresal] 10 mg PO BID 03/20/20 Metoprolol Tartrate 25 mg PO BID 08/07/20 Aspirin [Aspirin, Baby] 81 mg PO DAILY #0 [facility] heart health 08/13/20 Methenamine Hippurate [Hiprex] 1 gm PO BID #0 08/13/20 Famotidine 20 mg PO QHS 10/15/20 Lisinopril [Zestril] 10 mg PO DAILY 10/15/20 Metformin HCl 500 mg PO BID 10/15/20 Cefdinir 300 mg PO BID #10 cap 10/17/20 Following Prescriptions Were Given to Patient: Cefdinir 300 mg PO BID #10 cap Transmission Status: Received by [facility] Primary Care Physician: Colby Valenzuela DO [Primary Care Provider] - Please follow up with your Primary Care Physician in: 1-2 weeks Please Follow Up With: Juan Ramon Andrews MD When: every month for suprapubic catheter change as scheduled Patient Instructions: Understanding Urinary Tract Infections (UTIs), ED Urinary Tract Infections in Women Disposition: Home Minutes spent on discharge:: 40 Patient Condition:: Stable Medical Necessity - Tobacco Use Smoking Status: Never smoker Meaningful Use Info Meaningful Use Diagnoses (Choose all that apply): None applicable Inpatient E&M: 91340 Disch Hosp
[2020-10-17 16:02] VITALS: BP 131/76; PULSE 84; RESP 16; TEMP 37.1; O2SAT 97
--- NOTE | 2020-10-20 15:56 | CASEMGMT ---
TONI MARTIENS Discharge Follow-up Phone Call: CHRISBao: 12 Strata: 3 Call Date: 10/20/20 Discharge Date: 10/17/20 Time of Call: 1555 Duration: 5 min Admitting Diagnosis: Acute cystitis TONI MARTINES completed follow-up phone call after recent hospitalization. Patient state she is doing well. Patient had no questions or concerns regarding discharge instructions. Patient was able to fill meds without any issues. Patient calling PCP office to schedule appt. Patient has wound center appt Monday. Patient had no further questions or concerns at this time.
== END 2020-10-17 17:32 | disposition home or self-care (01) | DRG 698 ==
LOC: ED 17:28 → MS3 23:44
PROVIDERS: Admitting Provider Hospitalist; Emergency Provider Emergency Medicine; PCP Family Medicine; Visit Provider Student in an Organized Health Care Education/Training Program
DX: T83.510A Infection and inflammatory reaction due to cystostomy catheter, initial encounter (principal); G93.41 Metabolic encephalopathy; N30.00 Acute cystitis without hematuria; N17.9 Acute kidney failure, unspecified; Z68.43 Body mass index [BMI] 50.0-59.9, adult; I48.20 Chronic atrial fibrillation, unspecified; T83.090A Other mechanical complication of cystostomy catheter, initial encounter; Y84.6 Urinary catheterization as the cause of abnormal reaction of the patient, or of later complication, without mention of misadventure at the time of the procedure; B96.20 Unspecified Escherichia coli [E. coli] as the cause of diseases classified elsewhere; E11.65 Type 2 diabetes mellitus with hyperglycemia; E11.22 Type 2 diabetes mellitus with diabetic chronic kidney disease; I12.9 Hypertensive chronic kidney disease with stage 1 through stage 4 chronic kidney disease, or unspecified chronic kidney disease; N18.30 Chronic kidney disease, stage 3 unspecified; D63.1 Anemia in chronic kidney disease; D50.0 Iron deficiency anemia secondary to blood loss (chronic); E78.5 Hyperlipidemia, unspecified; G47.33 Obstructive sleep apnea (adult) (pediatric); R53.81 Other malaise; R91.8 Other nonspecific abnormal finding of lung field; B37.2 Candidiasis of skin and nail; F31.9 Bipolar disorder, unspecified; F41.9 Anxiety disorder, unspecified; E66.01 Morbid (severe) obesity due to excess calories; Z99.3 Dependence on wheelchair; Z79.84 Long term (current) use of oral hypoglycemic drugs; Z79.899 Other long term (current) drug therapy
CPT/HCPCS: 36415; 36600; 71045; 80048; 80053; 81001; 82803; 82962; 83605; 84484; 85025; 86850; 86900; 86901; 86920; 86922; 87040; 87086; 87088; 87186; 87426; 87635; 93005; 97163; 97166; 97530; 99285; J7030; J7040; P9040; A4216; U0002

== ENCOUNTER → 2020-10-27 13:26 | Outpatient (CLI) | payer MEDICARE, OTHER, SELFPAY ==
[2020-10-23 11:12] VITALS: BMI 51.7
[2020-10-27 15:30] LABS: Absolute Lymphocyte Count 1.26 X10^3/uL (0.83-4.51); Absolute Neutrophil Count 3.3 X10^3/uL (2.0-7.7); Basophil# 0.04 X10^3/uL; Basophil% 0.7 % (0-1); Eosinophils% 3.6 % (0-5); Hematocrit 28.7 % (37-47); Hemoglobin 8.3 g/dL (12.0-15.0); Lymphocyte # 1.26 X10^3/ul (4.0); Lymphocyte % 22.4 % (19-41); Mean Corp Hgb Conc 28.9 g/dL (32-36); Mean Corpuscular Hgb 25.8 pg (27.0-32.0); Mean Corpuscular Volume 89.1 fL (81-99); Monocyte# 0.81 X10^3/uL; Monocyte% 14.4 % (0-10); NRBC Flagged by Analyzer 0 % (0-5); Neutrophil % 58.5 % (47-70); Platelet Count 479 K/mm3 (150-450); RBC Distribution Width CV 18.6 % (11.6-14.6); RBC Distribution Width SD 60.9 fl (35.1-43.9); Red Blood Count 3.22 M/mm3 (4.2-5.4); White Blood Count 5.6 K/mm3 (4.4-11.0)
[2020-10-27 16:00] LABS: Anion Gap 6 (5-15); BUN 23 mg/dL (7-18); BUN/Creat Ratio 13.5 RATIO (10-20); Calcium,Total 8.7 mg/dL (8.5-10.1); Chloride 103 mmol/L (98-107); Creatinine, Serum 1.71 mg/dL (0.55-1.02); EST Glomerular Filtration Rate 31 mL/min (>60); Est Glom Filt Rate - Afr Amer 38 mL/min (>60); Glucose 115 mg/dL (74-106); Sodium Level 136 mmol/L (136-145)
[2020-10-27 18:18] LABS: Hemoglobin A1c 5.6 % (3.8-5.6)
== END ==
PROVIDERS: PCP Family Medicine; Referring Provider Family Medicine; Visit Provider Family Medicine
DX: N17.9 Acute kidney failure, unspecified (principal); D50.9 Iron deficiency anemia, unspecified
CPT/HCPCS: 36415; 80048; 83036; 85025

== ENCOUNTER 2020-11-05 00:26 | Emergency (ER) | payer MEDICARE, OTHER, SELFPAY ==
[2020-10-23 11:12] VITALS: BMI 51.7
[2020-11-05] VITALS (7 sets, daily range): BP systolic 103–130; BP diastolic 64–88; PULSE 78–115; RESP 15–27; TEMP 36.8–37.2; O2SAT 93–100; BMI 51.2
--- NOTE | 2020-11-05 00:42 | ED.VIS.GEN ---
History of Present Illness Chief Complaint: Alt LOC Informant: Patient, [employer] Onset: Today - all day today Context: Gradual Onset Timing: Continuous Quality: tired Location: all over Current Severity: Moderate Maximum Severity: Moderate Worsened by: n/a Relieved by: n/a Associated Symptoms: confused per family who called EMS; otherwise, none Narrative: Patient states my family thought I was confused, but I am not. I am just tired. She states she did not sleep well last night, and felt pretty good yesterday, but has been tired all day today. Later during the initial evaluation she states she is having trouble remembering answers to certain questions and says my brain is like Jell-O. She denies any focal symptoms. She admits that with prior urinary tract infections since she has had an indwelling catheter, she has presented like this before with generalized fatigue and no other specific symptoms. She has a neurogenic bladder and a suprapubic catheter that chronically outputs brown-red fluid which is unchanged at this time. She also states she thinks she may be dehydrated because she did not drink much fluid today although she did yesterday. She has had no vomiting or diarrhea. She thinks her urine output has been similar to prior/usual. - Past Medical History (1) Anemia Status: Chronic (2) Anxiety and depression Status: Chronic (3) Candidal intertrigo Status: Chronic (4) Debility Status: Chronic (5) Depression Status: Chronic (6) HLD (hyperlipidemia) Status: Chronic (7) History of atrial fibrillation Status: Chronic (8) Morbid obesity Status: Chronic (9) VITA (obstructive sleep apnea) Status: Chronic Past Medical History - Allergies and Home Meds Allergies/Adverse Reactions: Allergies adhesive tape Allergy (Verified 11/05/20 00:29) blisters Influenza Virus Vaccines Allergy (Verified 11/05/20 00:29) shortness of breath/severe wheezing iron Allergy (Verified 11/05/20:29) from IV form chest pressure and heart palpitations Sulfa (Sulfonamide Antibiotics) Allergy (Verified 11/05/20:29) Shortness of breath bactrim does not work for her-per pcp paperwork meloxicam [From Mobic] Adverse Reaction (Verified 11/05/20 00:29) gi upset seasonal allergies Allergy (Uncoded 11/05/20:29) Other Primary Care Physician: Colby Valenzuela DO [Primary Care Provider] - Surgical History: cholecystectomy, hysterectomy, - - Suprapubic catheter placement. Smoking Status: Never smoker - Family History Maternal Family History: Reports: Diabetes, Heart Disease - Her father had a CABG and CHF Paternal Family History: Reports: Heart Disease Review of Systems General: Reports: Malaise. Denies: Chills, Fever, Sweats Eyes: Denies: Visual changes - bilaterally, Diplopia ENT: Denies: Rhinorrhea, Sore throat Cardiovascular: Denies: Chest pain, Palpitations Respiratory: Denies: Dyspnea, Cough, Dyspnea on exertion Gastrointestinal: Denies: Abdominal pain, Nausea, Vomiting, Diarrhea, Melena, Hematochezia Genitourinary: Denies: Dysuria, Hematuria, Frequency Musculoskeletal: Reports: Arthralgias - chronic, unchanged, Back pain - chronic, unchanged, low back. Denies: Myalgias, Neck pain, Swelling, Extremity Pain Skin: Denies: Rash, Wounds Neurological: Reports: - - confusion; see HPI. Denies: Headache, Weakness, Numbness Physical Exam Vital Signs/Narrative: Vital Signs Temp Pulse Resp BP Pulse Ox 11/05/20 00:29 99.0 F 78 22 H 103/64 94 Inital Vital Signs reviewed: Yes General: Well nourished, Well developed, Obese, No Acute Distress Head: Normocephalic, Atraumatic Eyes: Perrl, EOMI ENT: Moist mucous membranes, No rhinorrhea Neck: Supple, Nontender Cardiovascular: Regular rate, Regular rhythm, No murmurs. Negative for: Tachycardia Respiratory: No distress, CTA bilaterally, Chest nontender Abdomen: Soft, Nontender, Nondistended, Normal bowel sounds, - - Suprapubic catheter site benign without leakage. It is beneath fat fold of abdominal wall, which smells of [place] and is moist. Back: Nontender, Normal Inspection. Negative for: CVA tenderness Extremities: Nontender, No edema. Negative for: Calf Tenderness Skin: Normal color, No rash, No Trauma Neurological: Alert, Cranial nerves II-XII grossly intact, Normal Strength, Normal Sensation, Disoriented - Somewhat disoriented. Cannot remember the year. Initially gets the month wrong saying it is September, then corrects herself and states correctly that it is 2 days before Graciela. Oriented to her self, and place with regards to city, state, building. Psychological: Normal affect, Normal Mood Diagnostic/Tx/Re-eval Chest X-Ray - ED: 1 View, Read by ED Physician, No Acute Disease, Chronic Changes Impressions Brain CT 11/05/20 00:47 IMPRESSION: Chronic involutional changes of the brain. Electronically Signed: Piter Delcid, at 2:17 EST Tel , Service support , 11/05/20 00:40 Chest 1 View (Portable) [RAD] Stat 11/05/20 00:47 CT Brain [Brain/Head without Contrast] [CT] Stat Laboratory Results 11/05/20 11/05/20 11/05/20 00:50 00:50 00:50 WBC 7.6 RBC 3.43 L Hgb 8.9 L Hct 30.5 L MCV 88.9 MCH 25.9 L MCHC 29.2 L RDW Std Deviation 61.1 H RDW Coeff of Jessi 19.1 H Plt Count 551 H MPV 8.9 Immature Gran % (Auto) 0.700 Neut % (Auto) 68.7 Lymph % (Auto) 15.1 L [place] % (Auto) 14.3 H Eos % (Auto) 0.7 Baso % (Auto) 0.5 Absolute Neuts (auto) 5.2 Absolute Lymphs (auto) 1.15 Nucleated RBC % 0 PT 14.9 INR 1.2 APTT 29.5 Sodium 134 L Potassium 4.4 Chloride 100 Carbon Dioxide 28.0 Anion Gap 6 BUN 25 H Creatinine 2.13 H Estim Creat Clear Calc 20.01 Est GFR (MDRD) Af Amer 29 L Est GFR (MDRD) Non-Af 24 L BUN/Creatinine Ratio 11.7 Glucose 109 H Lactic Acid Calcium 8.7 Total Bilirubin 0.30 AST 11 L ALT 14 Alkaline Phosphatase 75 Troponin I < 0.015 Total Protein 9.1 H Albumin 2.1 L Globulin 7.0 H Albumin/Globulin Ratio 0.3 L Urine Color Urine Clarity Urine pH Ur Specific [place] Urine Protein Urine Glucose (UA) Urine Ketones Urine Occult Blood Urine Nitrite Urine Bilirubin Urine Urobilinogen Ur Leukocyte Esterase Urine RBC Urine WBC Ur Squamous Epith Cells Urine Bacteria Hyaline Casts Urine Mucus 11/05/20 11/05/20 00:50 02:00 WBC RBC Hgb Hct MCV MCH MCHC RDW Std Deviation RDW Coeff of Jessi Plt Count MPV Immature Gran % (Auto) Neut % (Auto) Lymph % (Auto) [place] % (Auto) Eos % (Auto) Baso % (Auto) Absolute Neuts (auto) Absolute Lymphs (auto) Nucleated RBC % PT INR APTT Sodium Potassium Chloride Carbon Dioxide Anion Gap BUN Creatinine Estim Creat Clear Calc Est GFR (MDRD) Af Amer Est GFR (MDRD) Non-Af BUN/Creatinine Ratio Glucose Lactic Acid 1.3 Calcium Total Bilirubin AST ALT Alkaline Phosphatase Troponin I Total Protein Albumin Globulin Albumin/Globulin Ratio Urine Color Red Urine Clarity Turbid Urine pH 7.0 Ur Specific [place] 1.010 Urine Protein 500 H Urine Glucose (UA) Normal Urine Ketones 15 H Urine Occult Blood 250 H Urine Nitrite Negative Urine Bilirubin Negative Urine Urobilinogen Normal Ur Leukocyte Esterase 500 H Urine RBC > 100 SEEN Urine WBC >100 SEEN Ur Squamous Epith Cells 0 SEEN Urine Bacteria 4+ Hyaline Casts 0-5 SEEN Urine Mucus 0 SEEN - Rhythm Strip Rhythm Strip: Sinus Rhythm Rate: 90 Ectopy: None - EKG Initial EKG Interpretation: Sinus Rhythm, No Acute Injury Pattern, - - low voltage likely due to morbid obesity Prior: Unchanged - Medical Decision Making With normal vital signs, no leukocytosis, and normal lactate, as well as being keenly alert and stable clinically, patient appears to have a urinary tract infection without sepsis. She was pancultured and started on IV Rocephin empiric treatment. I think she is able to be medically treated at home as an outpatient with close outpatient follow-up. Discussed with her and family who helps to care for her at home, they are comfortable with that plan we discussed reasons to return. Her last urine culture grew out E. coli sensitive to most, including all cephalosporins so we will start her on cephalexin. Of note her x-ray looks similar to her prior one, which was read as possible early changes of COVID-19 pneumonia in the lower lobes. We tested her for COVID-19 with a rapid antigen test and it returned negative, and she has no symptoms of respiratory illness at this time. Therefore my interpretation of her 1 view chest x-ray is that these are chronic abnormalities. ED Disposition - Plan for ED Patient: Disposition: Home or Assisted Living Diagnosis: UTI (urinary tract infection) Instructions: ED Bladder Infection, Female (Adult) Prescriptions: Cephalexin [Keflex] 500 mg PO 4X/DAY #40 cap Prescription Printed Referrals: Colby Valenzuela DO [Primary Care Provider] - 3-5 Days (or return to ER if getting worse)
--- NOTE | 2020-11-05 00:47 | CT_ITS ---
STUDY: CT BRAIN WITHOUT CONTRAST REASON FOR EXAM: Female, 75 years old. CONFUSION, DECREASED URINE OUTPUT, TROUBLE REMEMBERING, HX HTN, DIAB, [place] RADIATION DOSAGE (If Supplied By Facility): CTDIvol = ( 44.99 ) mGy, DLP = ( 812.98 ) mGycm TECHNIQUE: Transaxial CT imaging of the brain was performed without administration of intravenous contrast material. Individualized dose optimization techniques were used for this CT. COMPARISON: No relevant priors. FINDINGS: Normal soft tissue structures. Normal calvarium. There is mild cerebral atrophy with widening of the extra-axial spaces and ventricular dilatation. There are areas of decreased attenuation within the white matter tracts of the supratentorial brain, consistent with microvascular disease changes. Normal basal ganglia and thalami. Normal brainstem. Normal cerebellum. There is no intracranial hemorrhage. There are no findings of an acute ischemic infarction. Normal visualized paranasal sinuses. CT/Brain/Head without Contrast IMPRESSION: Chronic involutional changes of the brain. Electronically Signed: Piter Delcid, at 2:17 EST Tel , Service support ,
[2020-11-05 01:02] LABS: Absolute Lymphocyte Count 1.15 X10^3/uL (0.83-4.51); Absolute Neutrophil Count 5.2 X10^3/uL (2.0-7.7); Basophil# 0.04 X10^3/uL; Basophil% 0.5 % (0-1); Eosinophil# 0.05 X10^3/uL; Eosinophils% 0.7 % (0-5); Hematocrit 30.5 % (37-47); Hemoglobin 8.9 g/dL (12.0-15.0); Lymphocyte # 1.15 X10^3/ul (4.0); Lymphocyte % 15.1 % (19-41); Mean Corp Hgb Conc 29.2 g/dL (32-36); Mean Corpuscular Hgb 25.9 pg (27.0-32.0); Mean Corpuscular Volume 88.9 fL (81-99); Mean Platelet Vol. 8.9 fl (6.2-12.0); Monocyte# 1.09 X10^3/uL; Monocyte% 14.3 % (0-10); NRBC Flagged by Analyzer 0 % (0-5); Neutrophil # 5.22 X10^3/uL (2.7-7.7); Neutrophil % 68.7 % (47-70); Platelet Count 551 K/mm3 (150-450); RBC Distribution Width CV 19.1 % (11.6-14.6); RBC Distribution Width SD 61.1 fl (35.1-43.9); Red Blood Count 3.43 M/mm3 (4.2-5.4); White Blood Count 7.6 K/mm3 (4.4-11.0)
[2020-11-05] MEDS: 0.9% Normal Saline 1,000 ML 150 ML IV (01:05)
[2020-11-05 01:13] LABS: International Normalized Ratio 1.2; Partial Thromboplast Time 29.5 Seconds (24.1-36.2); Prothrombin Time (Protime)PT. 14.9 SECONDS (11.7-14.9)
[2020-11-05 01:20] LABS: ALB/GLOB Ratio 0.3 RATIO (0.9-2.4); AST(SGOT) 11 U/L (15-37); Alanine Aminotransfer ALT/SGPT 14 U/L (13-56); Albumin, Serum 2.1 g/dL (3.2-5.0); Alkaline Phosphatase 75 U/L (45-117); Anion Gap 6 (5-15); BUN 25 mg/dL (7-18); BUN/Creat Ratio 11.7 RATIO (10-20); Calcium,Total 8.7 mg/dL (8.5-10.1); Chloride 100 mmol/L (98-107); Creatinine, Serum 2.13 mg/dL (0.55-1.02); EST Glomerular Filtration Rate 24 mL/min (>60); Est Glom Filt Rate - Afr Amer 29 mL/min (>60); Estimated Creatinine Clearance 20.01 ml/min; Glucose 109 mg/dL (74-106); Potassium 4.4 mmol/L (3.5-5.1); Protein, Total 9.1 g/dL (6.4-8.2); Sodium Level 134 mmol/L (136-145)
[2020-11-05 01:25] LABS: Lactic Acid 1.3 mmol/L (0.4-1.9)
--- NOTE | 2020-11-05 02:00 | RAD_ITS ---
STUDY: X-RAY CHEST REASON FOR EXAM: Female, 75 years old. CONFUSION TECHNIQUE: Single AP portable view of the chest. COMPARISON: None. FINDINGS: Ill-defined subpleural groundglass opacities are seen more prominent in the lung bases , may represent atypical pneumonia or viral pneumonia (COVID-19 ?). There is no demonstrated pleural abnormality. Normal size heart. Normal mediastinum and peace. Normal visualized pulmonary arteries. Normal visualized aortic arch and descending thoracic aorta. Normal visualized thoracic spine. There is degenerative osteoarthritis of the bilateral shoulders. There is no demonstrated abnormality of the visualized soft tissue structures of the upper abdomen. RAD/Chest 1 View (Portable) IMPRESSION: Ill-defined subpleural groundglass opacities are seen more prominent in the lung bases , may represent atypical pneumonia or viral pneumonia (COVID-19 ?). Electronically Signed: Piter Delcid, at 2:23 EST Tel , Service support ,
[2020-11-05 02:07] LABS: Color, Urine Red (Yellow); Glucose, Dipstick Normal (Normal); Ketone-Dipstick 15 mg/dl (Negative); Leukocyte Esterase-Dipstick 500 /ul (Negative); Mucous, Urine 0 SEEN /hpf (<or=2+); Nitrite-Dipstick Negative (Negative); Occult Blood-Urine 250 /ul (Negative); Protein-Dipstick 500 mg/dl (Negative); Squamous Epithelial Cells - UA 0 SEEN /hpf (5-10); Urine Bilirubin Dipstick Negative (Negative); Urine Clarity Turbid (Clear); Urine Urobilinogen Normal (Normal)
--- NOTE | 2020-11-05 02:07 | ED.RN ---
URINE BAG CHANGED PRIOR TO OBTAINING THE URINE SAMPLE.
[2020-11-05 02:19] LABS: White Blood Cells >100 SEEN /hpf (0-5)
[2020-11-05 02:20] LABS: Bacteria 4+ /hpf (None Seen); Hyaline Cast 0-5 SEEN /lpf (0-5); Red Blood Cells-Urine > 100 SEEN /hpf (0-5)
[2020-11-05] MEDS: Ceftriaxone 1 GM/50 ML BAG IV (02:33)
== END 2020-11-05 04:15 | disposition home or self-care (01) ==
PROVIDERS: Emergency Provider Emergency Medicine; PCP Family Medicine
DX: T83.511A Infection and inflammatory reaction due to indwelling urethral catheter, initial encounter (principal); N39.0 Urinary tract infection, site not specified; N31.9 Neuromuscular dysfunction of bladder, unspecified; I48.91 Unspecified atrial fibrillation; I10 Essential (primary) hypertension; F32.9 Major depressive disorder, single episode, unspecified; F41.9 Anxiety disorder, unspecified; E78.5 Hyperlipidemia, unspecified; E66.01 Morbid (severe) obesity due to excess calories; G47.33 Obstructive sleep apnea (adult) (pediatric); Z87.440 Personal history of urinary (tract) infections; Z88.1 Allergy status to other antibiotic agents; Z88.2 Allergy status to sulfonamides; Z88.8 Allergy status to other drugs, medicaments and biological substances; Z79.82 Long term (current) use of aspirin; Z79.899 Other long term (current) drug therapy
CPT/HCPCS: 70450; 71045; 80053; 81001; 83605; 84484; 85025; 85610; 85730; 87040; 87077; 87086; 87088; 87186; 93005; 96365; 99285; J7030; A4216

== ENCOUNTER 2020-11-10 13:00 | Outpatient (RCR) | payer MEDICARE, OTHER, SELFPAY ==
[2020-10-13 00:18] VITALS: BP 113/42; PULSE 78; RESP 18; TEMP 35.5
[2020-10-15 00:09] VITALS: BMI 51.7
[2020-10-23 11:12] VITALS: RESP 16; TEMP 37.1; BMI 51.7
--- NOTE | 2020-10-23 11:18 | WC ---
unable to visualize left posterior thigh wound. pt unable to stand up far enough and refuses to be transferred to cot
--- NOTE | 2020-10-23 14:16 | PCM.WC.PN ---
(1) Pressure ulcer of left thigh Status: Chronic Qualifiers: Pressure injury stage: stage 2 Code(s): L89.229 - Pressure ulcer of left hip, unspecified stage (2) Pressure ulcer of coccygeal region, stage 3 Status: Chronic Code(s): L89.153 - Pressure ulcer of sacral region, stage 3 (3) Morbid obesity Status: Chronic Code(s): E66.01 - Morbid (severe) obesity due to excess calories Type of Wound Date of Service: 10/23/20 Chief Complaint: ulcers of left groin and abdomen, pressure ulcer of coccyx History of Wound: Samra is a 74 yo woman who presented to the wound center for ulcers of left groin and abdomen referred by wound nurse at [facility]. She was hospitalized at [facility] for urosepsis multiple times. She was on IV antibiotics of Meropenem and Vancomycin. She is morbidly obese and has problems with candidal intertrigo and has ulcers that open frequently for several years. She was using towels to keep moisture from accumulating under her skin folds but this has been ineffective. She started using InstaDry sheets since discharge from the hospital which has improved the moisture in her folds. She has been using nystatin powder as well. She had been using bacitracin to the ulcer of her abdomen. She has an indwelling suprapubic catheter that is changed monthly. She has heavy drainage from her ulcers. She is wheelchair bound and has an aid that helps her daily for a few hours per day. She denies fever or chills. In May 2019, she reports that she has a chronic ulcer of her coccyx area that was previously surgically debrided that comes and goes and has gotten worse since she was in the halfway in early 2018. Progress of Wound: Samra is here for follow up of ulcers of her left posterior thigh and coccyx. She is tolerating Fibracol dressings to coccyx and posterior thigh. She uses ABD pads and a pillowcase to wick away moisture from her inguinal folds. She maintains improvement in erythema and the groin ulcers are healed. She has had improvement to coccyx ulcer and left upper posterior thigh ulcer. She is tolerating fibracol to her coccyx ulcer and has moderate to heavy drainage from this ulcer. Her mid-abdomen ulcer remains healed. The ulcer to her left posterior thigh occurred while hospitalized, from shearing force of repositioning and transferring, and continued pressure. She has been using Fibracol to the left posterior thigh ulcer with improvement. She denies fever or chills, nausea, vomiting, or diarrhea. 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 - Physical Exam Vital Signs Temp Pulse Resp BP 98.7 F 78 16 113/42 L 10/23/20 11:12 10/13/20 00:18 10/23/20 11:12 10/13/20 00:18 General: Alert, Oriented x3, Cooperative, No apparent distress HEENT: Atraumatic, Normocephalic Oral: Moist Mucosa Lungs: Clear to auscultation Cardiovascular: Regular rate, Regular Rhythm Abdomen: Soft, Non Tender, Obese Extremities: Edema Skin: Ulcer/ Wound Wound Measurements and Assessment WC - Nurse 1 - General Ulcer Measurement Start: 10/23/20 11:11 Freq: Status: Active Protocol: Activity Type Activity Date Activity User E-Sign Co-Sign Detail Recorded Client Recorded Date Recorded By Document 10/23/20 11:12 [facility] [id number] 10/23/20 11:17 [facility] 10/23/20 11:12 Wound Center Nurse 1 [Ulcer Assessment] #4 L Posterior Thigh -Combined with other wound No -Current Size (cm) - Length 0.1 -Current Size (cm) - Width 0.1 -Current Size (cm) - Depth 0.1 -Total Square Cm 0.01 #3 Coccyx -Combined with other wound No -Current Size (cm) - Length 0.3 -Current Size (cm) - Width 0.8 -Current Size (cm) - Depth 0.3 -Total Square Cm 0.24 -Photo Taken No -Epithelialization Small 1-33% -Tunneling No -Undermining/Tunneling No -Circular Undermining No -Exudate Amt Small -Exudate Type Serosanguineous -Wound Margin Thickened -Granulation Amt Medium (34-66%) -Granulation Quality Red -Slough/Fibrin Yes -Necrosis Amt Small (1-33%) -Necrotic Tissue Type Adherent Slough -Texture (Jessica-wound Skin Appearance) Assessed, Scarring -Moisture (Jessica-wound Skin Appearance Assessed ) -Color (Jessica-wound Skin Appearance) Assessed, Erythema -Temperature (Jessica-wound Skin No Abnormality Appearance) (Pt Warm) -Tenderness on Palpation (Jessica-wound Yes Skin Appearance) -Ulcer Cleansing Rinsed/ Irrigated with Saline -Foul Odor after Cleansing No -Anesthetic Used 5% Lidocaine Gel WC - Nurse 2 - General Ulcer CM Notes Start: 10/23/20 11:11 Freq: Status: Active Protocol: Activity Type Activity Date Activity User E-Sign Co-Sign Detail Recorded Client Recorded Date Recorded By Document 10/23/20 11:54 MW [id number] 10/23/20 11:55 MW 10/23/20 11:54 Wound Center Nurse 2 [Procedure/Treatment] #4 L Posterior Thigh -Time 11:54 -Correct Patient Yes -Correct Side, Site, Position Yes -Correct Procedure Yes -Procedure Performed No -Post Debridement (cm) - Length 0 -Post Debridement (cm) - Width 0 -Post Debridement (cm) - Depth 0 -Total Square (Post) (cm) 0 -Wound/Ulcer Outcome Healed- Epithelialized #3 Coccyx -Time 11:54 -Correct Patient Yes -Correct Side, Site, Position Yes -Correct Procedure Yes -Procedure Performed Yes -Type of Procedure Debridement -Clinical Debridement Subcutaneous -Tissue Removed Subcutaneous -Post Debridement (cm) - Length 0.3 -Post Debridement (cm) - Width 1.0 -Post Debridement (cm) - Depth 0.3 -Total Square (Post) (cm) 0.30 -Area of Debridement (cm) - Length 0.3 -Area of Debridement (cm) - Width 1.0 -Total Square (Area) (cm) 0.30 -Tunneling No -Undermining/Tunneling No -Circular Undermining No -Wound/Ulcer Outcome Not Healed -Ulcer Cleansing Rinsed/ Irrigated with Saline -Foul Odor after Cleansing No -Bioengineered Tissue No -Bleeding Controlled with Pressure -Offloading No -Treatment Response Procedure Tolerated Well -Debridement - Subq, 1st 20sq cm Yes [See Physician Procedure note for Specifics] Pain Scale: 0-10 Numeric [Pain] -Is Patient Pain Free? Yes ÁLVARO - Nurse 3 - General Ulcer D/C NN Start: 10/23/20 11:11 Freq: Status: Active Protocol: Activity Type Activity Date Activity User E-Sign Co-Sign Detail Recorded Client Recorded Date Recorded By Document 10/23/20 11:55 MW [id number] 10/23/20 11:56 MW 10/23/20 11:55 Wound Care Nurse 3 [Wound Dressing] #3 Coccyx -Foul Odor after Cleansing No -Negative Pressure Wound Therapy N/A -Primary Dressing Applied Fibracol Plus 4x4 -Primary Dressing Covered/Secured Dry Gauze, with Secured with Tape -Fibracol Plus 4x4 1 [Post Procedure Tolerated] -Treatment Response Procedure Tolerated Well Pain Scale: 0-10 Numeric [Pain] -Is Patient Pain Free? Yes Teaching: Wound Center [Wound Center Education] (Items with an * have Printed Materials Available- Please identify what is given to patient under the Teaching materials given to patient and caregiver Section. Dressing Your Wound -Person Taught Patient -Teaching Method Discussion, Demonstration -Response to teaching Verbalize understanding WC - Visit Discharge [Visit Discharge Information] -Discharge Condition Stable -Ambulatory Status Wheelchair -Transportation Private Auto -Accompanied by self -Medication Reconcilliation completed No & provided to patient/care provider -Clinical Summary of Care Provided Yes Psych/Mental Status: Normal Affect, Appropriate Debridement Note Post-Debridement Measurements/Treatment WC - Nurse 2 - General Ulcer CM Notes Start: 10/23/20 11:11 Freq: Status: Active Protocol: Activity Type Activity Date Activity User E-Sign Co-Sign Detail Recorded Client Recorded Date Recorded By Document 10/23/20 11:54 MW [id number] 10/23/20 11:55 MW 10/23/20 11:54 Wound Center Nurse 2 #4 L Posterior Thigh -Time 11:54 -Correct Patient Yes -Correct Side, Site, Position Yes -Correct Procedure Yes -Procedure Performed No -Post Debridement (cm) - Length 0 -Post Debridement (cm) - Width 0 -Post Debridement (cm) - Depth 0 -Total Square (Post) (cm) 0 -Wound/Ulcer Outcome Healed- Epithelialized #3 Coccyx -Time 11:54 -Correct Patient Yes -Correct Side, Site, Position Yes -Correct Procedure Yes -Procedure Performed Yes -Type of Procedure Debridement -Clinical Debridement Subcutaneous -Tissue Removed Subcutaneous -Post Debridement (cm) - Length 0.3 -Post Debridement (cm) - Width 1.0 -Post Debridement (cm) - Depth 0.3 -Total Square (Post) (cm) 0.30 -Area of Debridement (cm) - Length 0.3 -Area of Debridement (cm) - Width 1.0 -Total Square (Area) (cm) 0.30 -Tunneling No -Undermining/Tunneling No -Circular Undermining No -Wound/Ulcer Outcome Not Healed -Ulcer Cleansing Rinsed/ Irrigated with Saline -Foul Odor after Cleansing No -Bioengineered Tissue No -Bleeding Controlled with Pressure -Offloading No -Treatment Response Procedure Tolerated Well -Debridement - Subq, 1st 20sq cm Yes Pain Scale: 0-10 Numeric Is Patient Pain Free? Yes WC - Nurse 3 - General Ulcer D/C NN Start: 10/23/20 11:11 Freq: Status: Active Protocol: Activity Type Activity Date Activity User E-Sign Co-Sign Detail Recorded Client Recorded Date Recorded By Document 10/23/20 11:55 MW [id number] 10/23/20 11:56 MW 10/23/20 11:55 Wound Care Nurse 3 #3 Coccyx -Foul Odor after Cleansing No -Negative Pressure Wound Therapy N/A -Primary Dressing Applied Fibracol Plus 4x4 -Primary Dressing Covered/Secured with Dry Gauze, Secured with Tape -Fibracol Plus 4x4 1 Treatment Response Procedure Tolerated Well Pain Scale: 0-10 Numeric Is Patient Pain Free? Yes Teaching: Wound Center Dressing Your Wound -Person Taught Patient -Teaching Method Discussion, Demonstration -Response to teaching Verbalize understanding WC - Visit Discharge Discharge Condition Stable Ambulatory Status Wheelchair Transportation Private Auto Accompanied by self Medication Reconcilliation completed & No provided to patient/care provider Clinical Summary of Care Provided Yes Wound debrided: posterior thigh Laterality: Left No debridement was completed today - healed - Additional Wound Wound debrided: coccyx Laterality: Not Applicable Wound Grade/Stage: Stage 3 Type of Debridement: Excisional debridement Anesthesia Used: 4% Lidocaine Solution, 5% Lidocaine Gel Depth: Down to and including healthy tissue, in the subcutaneous layer Percentage of wound debrided: 100 Instrument Used: 3mm curette Tissue Removed: Yellow slough, devitalized tissue Severity: Fat Layer Exposed Amount of bleeding with debridement: Mild Bleeding Controlled with: Compression and gauze Patient tolerated procedure: Patient tolerated procedure well Assessment/Plan Assessment: ulcers of left groin - healed. morbid obesity. Candidal intertrigo. Stage 3 pressure ulcer of coccyx. Stage 2 pressure ulcer left posterior thigh Plan: Pat's ulcers were evaluated today. Left groin cluster remains healed. Coccyx has improved and posterior thigh healed. I will have her continue to use Fibracol to the ulcers of her coccyx. She should continue to use ABD pads to her inguinal fold area to absorb moisture and prevent ulcers from developing due to the heavy drainage. She should change ABDs to left groin area 2-3 times/day as needed for soiling through of heavy drainage. Diflucan will be continued once weekly to treat candidal intertrigo. Will have her take this weekly to every other week due to sweating and heat and her body habitus and chronic yeast which are causing her to develop ulcers. Encouraged her to increase protein intake and offload the areas of her ulcers. Advised to call with any fever, chills, increased. drainage. Due to the chronic stage 3 pressure ulcer of her coccyx she would benefit from offloading mattress such as alternating pressure mattress. 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 Concerned for possible ongoing UTI - refilled her prescriptions for cipro and augmentin. F/u in 2 weeks. Follow-up sooner should new or concerning symptoms arise. Note: [employer] speech recognition exotic dancer software was used to create portions of this document. Sound-alike and misspelled words, as well as other exotic dancer errors may be contained in the documentation.
[2020-11-10 13:07] VITALS: BP 104/60; PULSE 100; RESP 16; TEMP 36.4; BMI 51.7
--- NOTE | 2020-11-10 15:48 | PN.PCM_ITS ---
(1) Pressure ulcer of left thigh Status: Chronic Qualifiers: Pressure injury stage: stage 2 Code(s): L89.229 - Pressure ulcer of left hip, unspecified stage (2) Pressure ulcer of coccygeal region, stage 3 Status: Chronic Code(s): L89.153 - Pressure ulcer of sacral region, stage 3 (3) Morbid obesity Status: Chronic Code(s): E66.01 - Morbid (severe) obesity due to excess calories Type of Wound Date of Service: 11/10/20 Chief Complaint: ulcers of left groin and abdomen, pressure ulcer of coccyx History of Wound: Samra is a 74 yo woman who presented to the wound center for ulcers of left groin and abdomen referred by wound nurse at [facility]. She was hospitalized at [facility] for urosepsis multiple times. She was on IV antibiotics of Meropenem and Vancomycin. She is morbidly obese and has problems with candidal intertrigo and has ulcers that open frequently for several years. She was using towels to keep moisture from accumulating under her skin folds but this has been ineffective. She started using InstaDry sheets since discharge from the hospital which has improved the moisture in her folds. She has been using nystatin powder as well. She had been using bacitracin to the ulcer of her abdomen. She has an indwelling suprapubic catheter that is changed monthly. She has heavy drainage from her ulcers. She is wheelchair bound and has an aid that helps her daily for a few hours per day. She denies fever or chills. In May 2019, she reports that she has a chronic ulcer of her coccyx area that was previously surgically debrided that comes and goes and has gotten worse since she was in the snf in early 2018. Progress of Wound: Samra is here for follow up of ulcer of coccyx. She is tolerating Fibracol dressings to coccyx. She uses ABD pads and a pillowcase to wick away moisture from her inguinal folds. She maintains improvement in erythema and the groin ulcers are healed. She has had improvement to coccyx ulcer. She is tolerating fibracol to her coccyx ulcer and has moderate to heavy drainage from this ulcer. Her mid-abdomen ulcer remains healed. TShe denies fever or chills, nausea, vomiting, or diarrhea. 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 - Physical Exam Vital Signs Temp Pulse Resp BP 97.5 F L 100 16 104/60 11/10/20 13:07 11/10/20 13:07 11/10/20 13:07 11/10/20 13:07 General: Alert, Oriented x3, Cooperative, No apparent distress HEENT: Atraumatic, Normocephalic Oral: Moist Mucosa Abdomen: Soft, Non Tender, Obese Skin: Ulcer/ Wound Wound Measurements and Assessment WC - Nurse 1 - General Ulcer Measurement Start: 10/23/20 11:11 Freq: Status: Active Protocol: Activity Type Activity Date Activity User E-Sign Co-Sign Detail Recorded Client Recorded Date Recorded By Document 11/10/20 13:07 [facility] [id number] 11/10/20 13:11 [facility] 11/10/20 13:07 Wound Center Nurse 1 [Ulcer Assessment] #3 Coccyx -Current Size (cm) - Length 0.5 -Current Size (cm) - Width 2.8 -Current Size (cm) - Depth 0.4 -Total Square Cm 1.40 -Photo Taken No -Exudate Amt Small -Exudate Type Serosanguineous -Wound Margin Thickened -Granulation Amt Large (67-100%) -Granulation Quality Red -Necrosis Amt Small (1-33%) -Necrotic Tissue Type Adherent Slough -Texture (Jessica-wound Skin Appearance) Scarring -Moisture (Jessica-wound Skin Appearance Maceration ) -Color (Jessica-wound Skin Appearance) Rubor -Temperature (Jessica-wound Skin No Abnormality Appearance) (Pt Warm) -Tenderness on Palpation (Jessica-wound No Skin Appearance) -Ulcer Cleansing Rinsed/ Irrigated with Saline -Foul Odor after Cleansing No -Anesthetic Used 5% Lidocaine Gel WC - Nurse 2 - General Ulcer CM Notes Start: 10/23/20 11:11 Freq: Status: Active Protocol: Activity Type Activity Date Activity User E-Sign Co-Sign Detail Recorded Client Recorded Date Recorded By Document 11/10/20 13:23 MW [id number] 11/10/20 13:32 MW 11/10/20 13:23 Wound Center Nurse 2 [Procedure/Treatment] -Time 13:23 -Correct Patient Yes -Correct Side, Site, Position Yes -Correct Procedure Yes -Procedure Performed Yes -Type of Procedure Debridement -Clinical Debridement Subcutaneous -Tissue Removed Subcutaneous -Post Debridement (cm) - Length 0.4 -Post Debridement (cm) - Width 2.2 -Post Debridement (cm) - Depth 0.3 -Total Square (Post) (cm) 0.88 -Area of Debridement (cm) - Length 0.4 -Area of Debridement (cm) - Width 2.2 -Total Square (Area) (cm) 0.88 -Tunneling No -Undermining/Tunneling No -Circular Undermining No -Wound/Ulcer Outcome Not Healed -Ulcer Cleansing Rinsed/ Irrigated with Saline -Foul Odor after Cleansing No -Bioengineered Tissue No -Bleeding Controlled with Pressure -Offloading No -Treatment Response Procedure Tolerated Well -Debridement - Subq, 1st 20sq cm Yes [See Physician Procedure note for Specifics] Pain Scale: 0-10 Numeric [Pain] -Is Patient Pain Free? No Psych/Mental Status: Normal Affect, Appropriate Debridement Note Post-Debridement Measurements/Treatment WC - Nurse 2 - General Ulcer CM Notes Start: 10/23/20 11:11 Freq: Status: Active Protocol: Activity Type Activity Date Activity User E-Sign Co-Sign Detail Recorded Client Recorded Date Recorded By Document 10/23/20 11:54 MW [id number] 10/23/20 11:55 MW Document 11/10/20 13:23 MW [id number] 11/10/20 13:32 MW 10/23/20 11/10/20 11:54 13:23 Wound Center Nurse 2 #4 L Posterior Thigh -Time 11:54 -Correct Patient Yes -Correct Side, Site, Position Yes -Correct Procedure Yes -Procedure Performed No -Post Debridement (cm) - Length 0 -Post Debridement (cm) - Width 0 -Post Debridement (cm) - Depth 0 -Total Square (Post) (cm) 0 -Wound/Ulcer Outcome Healed- Epithelialized #3 Coccyx -Time 11:54 13:23 -Correct Patient Yes Yes -Correct Side, Site, Position Yes Yes -Correct Procedure Yes Yes -Procedure Performed Yes Yes -Type of Procedure Debridement Debridement -Clinical Debridement Subcutaneous Subcutaneous -Tissue Removed Subcutaneous Subcutaneous -Post Debridement (cm) - Length 0.3 0.4 -Post Debridement (cm) - Width 1.0 2.2 -Post Debridement (cm) - Depth 0.3 0.3 -Total Square (Post) (cm) 0.30 0.88 -Area of Debridement (cm) - Length 0.3 0.4 -Area of Debridement (cm) - Width 1.0 2.2 -Total Square (Area) (cm) 0.30 0.88 -Tunneling No No -Undermining/Tunneling No No -Circular Undermining No No -Wound/Ulcer Outcome Not Healed Not Healed -Ulcer Cleansing Rinsed/ Rinsed/ Irrigated with Irrigated with Saline Saline -Foul Odor after Cleansing No No -Bioengineered Tissue No No -Bleeding Controlled with Pressure Pressure -Offloading No No -Treatment Response Procedure Procedure Tolerated Well Tolerated Well -Debridement - Subq, 1st 20sq cm Yes Yes Pain Scale: 0-10 Numeric Is Patient Pain Free? Yes No WC - Nurse 3 - General Ulcer D/C NN Start: 10/23/20 11:11 Freq: Status: Active Protocol: Activity Type Activity Date Activity User E-Sign Co-Sign Detail Recorded Client Recorded Date Recorded By Document 10/23/20 11:55 MW [id number] 10/23/20 11:56 MW 10/23/20 11:55 Wound Care Nurse 3 #3 Coccyx -Foul Odor after Cleansing No -Negative Pressure Wound Therapy N/A -Primary Dressing Applied Fibracol Plus 4x4 -Primary Dressing Covered/Secured with Dry Gauze, Secured with Tape -Fibracol Plus 4x4 1 Treatment Response Procedure Tolerated Well Pain Scale: 0-10 Numeric Is Patient Pain Free? Yes Teaching: Wound Center Dressing Your Wound -Person Taught Patient -Teaching Method Discussion, Demonstration -Response to teaching Verbalize understanding WC - Visit Discharge Discharge Condition Stable Ambulatory Status Wheelchair Transportation Private Auto Accompanied by self Medication Reconcilliation completed & No provided to patient/care provider Clinical Summary of Care Provided Yes Wound debrided: coccyx Laterality: Not Applicable Wound Grade/Stage: Stage 3 Type of Debridement: Excisional debridement Anesthesia Used: 4% Lidocaine Solution Depth: Down to and including healthy tissue, in the subcutaneous layer Percentage of wound debrided: 100 Instrument Used: 3mm curette Tissue Removed: Yellow slough, devitalized tissue Severity: Fat Layer Exposed Amount of bleeding with debridement: Mild Bleeding Controlled with: Compression and gauze Patient tolerated procedure well Assessment/Plan Active Problems (Last Reviewed 10/17/20 @ 08:[address] Juan Ramon Andrews MD) Pressure ulcer of left thigh (Chronic) Pressure ulcer of coccygeal region, stage 3 (Chronic) Morbid obesity (Chronic) Assessment: ulcers of left groin - healed. morbid obesity. Candidal intertrigo. Stage 3 pressure ulcer of coccyx. Stage 2 pressure ulcer left posterior thigh Plan: Pat's ulcer was evaluated today. Coccyx has improved minimally. I will have her continue to use Fibracol to the ulcer of her coccyx. She should continue to use ABD pads to her inguinal fold area to absorb moisture and prevent ulcers from developing due to the heavy drainage. She should change ABDs to left groin area 2-3 times/day as needed for soiling through of heavy drainage. Diflucan will be continued once weekly to treat candidal intertrigo. Will have her take this weekly to every other week due to sweating and heat and her body habitus and chronic yeast which are causing her to develop ulcers. Encouraged her to increase protein intake and offload the areas of her ulcers. Advised to call with any fever, chills, increased. drainage. Due to the chronic stage 3 pressure ulcer of her coccyx she would benefit from offloading mattress such as alternating pressure mattress. 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 F/u in 2 weeks. Follow-up sooner should new or concerning symptoms arise. Note: [employer] speech recognition radio communication coordinator software was used to create portions of this document. Sound-alike and misspelled words, as well as other radio communication coordinator errors may be contained in the documentation.
== END 2020-11-12 23:59 ==
LOC: WC 13:00
PROVIDERS: Family Provider Family Medicine; PCP Family Medicine; Referring Provider Family Medicine; Visit Provider Family Medicine
DX: L89.153 Pressure ulcer of sacral region, stage 3 (principal); E66.01 Morbid (severe) obesity due to excess calories; B37.2 Candidiasis of skin and nail; Z99.3 Dependence on wheelchair; L89.892 Pressure ulcer of other site, stage 2
CPT/HCPCS: 11042

== ENCOUNTER 2020-11-27 17:04 | Inpatient (IN) | payer MEDICARE, OTHER, SELFPAY ==
[2020-11-13 00:17] VITALS: BMI 51.2
[2020-11-27] VITALS (10 sets, daily range): BP systolic 99–119; BP diastolic 53–73; PULSE 78–88; RESP 12–20; TEMP 36.4–36.7; O2SAT 96–98; BMI 47.0; BMI 46.5; BMI 46.6
--- NOTE | 2020-11-27 17:32 | EKG12_ITS ---
Test Reason : Blood Pressure : / mmHG Vent. Rate : 080 BPM Atrial Rate : 080 BPM P-R Int : 160 ms QRS Dur : 080 ms QT Int : 414 ms P-R-T Axes : 072 029 068 degrees QTc Int : 477 ms Sinus rhythm with Premature supraventricular complexes Nonspecific ST abnormality Abnormal ECG Confirmed by CACHORRO THOMPSON, JUAN ([id number]), restaurant expeditor JAMI TOLENTINO ([id number]) on 12/02/2020 6:43:59 AM Referred By: EARL Confirmed By:JUAN IVORY MD
--- NOTE | 2020-11-27 17:34 | ED.DCSUM_ITS ---
History of Present Illness Chief Complaint: Confusion Informant: Patient Narrative: Patient is a 75-year-old female with a past medical history of hypertension, hyperlipidemia, diabetes, A. fib not on anticoagulation who presents to the emergency department for confusion. Her symptoms started today. She has had these symptoms before in the past with urinary tract infection. Apparently she was started on antibiotics on November 052019 for a urinary tract infection. She was still having symptoms so this was renewed and she is currently still on an antibiotic that they are not sure which one. Her confusion started this morning. She has not been herself. Her lucidity comes and goes for the sister who provides majority of the history. The patient does feel that she is confused at times. She has any headache or vision changes. No chest pain or shortness of breath. No cough. No abdominal pain. She has been nauseous. No change in bowel habits. She does have a chronic indwelling Henry catheter. This was last changed 10 days ago. She did develop hematuria today as well. Past Medical History - Allergies and Home Meds Allergies/Adverse Reactions: Allergies adhesive tape Allergy (Verified 11/27/20 17:20) blisters Influenza Virus Vaccines Allergy (Verified 11/27/20 17:20) shortness of breath/severe wheezing iron Allergy (Verified 11/27/20 17:20) from IV form chest pressure and heart palpitations Sulfa (Sulfonamide Antibiotics) Allergy (Verified 11/27/20 17:20) Shortness of breath bactrim does not work for her-per pcp paperwork meloxicam [From Mobic] Adverse Reaction (Verified 11/27/20 17:20) gi upset seasonal allergies Allergy (Uncoded 11/27/20 17:20) Other Prior records reviewed: Yes Past Medical History: - - Per HPI Surgical History: cholecystectomy, hysterectomy, - - Suprapubic catheter placement. Smoking Status: Never smoker - Family History Maternal Family History: Reports: Diabetes, Heart Disease - Her father had a CABG and CHF Paternal Family History: Reports: Heart Disease Review of Systems All systems negative except as indicated General: Denies: Chills, Fever, Sweats Eyes: Denies: Visual changes - bilaterally, Diplopia ENT: Denies: Rhinorrhea, Sore throat Cardiovascular: Denies: Chest pain, Palpitations Respiratory: Denies: Dyspnea, Cough Gastrointestinal: Reports: Nausea. Denies: Abdominal pain, Vomiting, Diarrhea, Melena, Hematochezia Genitourinary: Reports: Hematuria. Denies: Dysuria, Frequency Musculoskeletal: Reports: Extremity Pain. Denies: Back pain Skin: Reports: Wounds - Has decubitus ulcer on lower extremity. Denies: Rash Neurological: Reports: - - Positive for confusion. Denies: Headache, Weakness, Numbness Physical Exam Vital Signs/Narrative: Vital Signs Temp Pulse Resp BP Pulse Ox 11/27/20 17:20 97.8 F 81 20 H 114/73 96 11/27/20 17:15 97.8 F 81 20 H 114/73 96 Inital Vital Signs reviewed: Yes General: Obese, No Acute Distress Head: Normocephalic, Atraumatic Eyes: Perrl, EOMI ENT: Moist mucous membranes, No rhinorrhea Neck: Supple, Nontender Cardiovascular: Regular rate, Regular rhythm, No murmurs Respiratory: No distress, CTA bilaterally, Chest nontender Abdomen: Soft, Nontender, Nondistended, Normal bowel sounds : - - Indwelling Henry has minimal output that is gross blood. Back: Nontender, Normal Inspection Extremities: Nontender, No edema Skin: Normal color, No rash Neurological: Alert, Cranial nerves II-XII grossly intact, Normal Strength, Normal Sensation, - - When asked the month and year she keeps repeating that it is the fifth and recently changed. She is oriented to person and place Psychological: Normal affect, Normal Mood Diagnostic/Tx/Re-eval - EKG Initial EKG Interpretation: - - Rate of 80 bpm and normal sinus rhythm. There are is a PAC present. Normal intervals. Normal axis. No significant ST elevations or depressions. - Medical Decision Making Patient presents to the ED for confusion and hematuria. She is currently being treated for UTI. She has had these confusion episodes with previous infections. Upon arrival to the emergency department vital signs within normal limits and she does not appear in any acute distress. She does appear mildly encephalo pathic when answering questions. No evidence of head trauma. She is not on any anticoagulation. Will check basic lab work, repeat urinalysis. Patient's repeat urinalysis showed greater than 100 white blood cells but no bacteria at this time. We will continue to treat as she is still symptomatic with confusion. There is blood and appears to be purulence in the Henry. Her hemoglobin is low but appears to be chronic for her. She also has an elevated creatinine which is close to her baseline but slightly elevated. She is started on Rocephin here in the ED as her previous cultures were sensitive to this from her last hospital visit. Due to the confusion and infection will bring her to the hospital for further evaluation and management. She is agreeable with this plan. She otherwise has been stable throughout ED stay. ED Disposition - Plan for ED Patient: Disposition: Acute Care Hospital [facility] Diagnosis: UTI (urinary tract infection), Encephalopathy, Anemia, [id number] kidney injury
--- NOTE | 2020-11-27 17:40 | RAD_ITS ---
STUDY: X-RAY CHEST REASON FOR EXAM: Female, 75 years old. confusion, being treated for UTI TECHNIQUE: Single frontal view of the chest. COMPARISON: 11/05/2020 FINDINGS: Possible mild residual infrahilar infiltrate on the right. There is no demonstrated pleural abnormality. Normal size heart. Normal mediastinum and peace. Normal visualized pulmonary arteries. Normal visualized aortic arch and descending thoracic aorta. Normal visualized thoracic spine. Normal visualized ribs, clavicles, and shoulders. There is no demonstrated abnormality of the visualized soft tissue structures of the upper abdomen. RAD/Chest 1 View (Portable) IMPRESSION: Possible residual right lower lobe infiltrate versus confluence of vessels Electronically Signed: Salvatore Marlow MD at 18:19 EST , Service support ,
[2020-11-27 18:01] LABS: Bacteria 0 SEEN /hpf (None Seen); Mucous, Urine 0 SEEN /hpf (<or=2+); Squamous Epithelial Cells - UA 0 SEEN /hpf (5-10)
[2020-11-27 18:03] LABS: Absolute Lymphocyte Count 0.66 X10^3/uL (0.83-4.51); Absolute Neutrophil Count 7.4 X10^3/uL (2.0-7.7); Basophil# 0.04 X10^3/uL; Basophil% 0.4 % (0-1); Eosinophil# 0.02 X10^3/uL; Eosinophils% 0.2 % (0-5); Hematocrit 27.5 % (37-47); Hemoglobin 7.9 g/dL (12.0-15.0); Lymphocyte # 0.66 X10^3/ul (4.0); Lymphocyte % 7.4 % (19-41); Mean Corp Hgb Conc 28.7 g/dL (32-36); Mean Corpuscular Hgb 26.1 pg (27.0-32.0); Mean Corpuscular Volume 90.8 fL (81-99); Mean Platelet Vol. 9.2 fl (6.2-12.0); Monocyte# 0.83 X10^3/uL; Monocyte% 9.3 % (0-10); NRBC Flagged by Analyzer 0 % (0-5); Neutrophil # 7.35 X10^3/uL (2.7-7.7); Neutrophil % 82.3 % (47-70); POSITIVE MORPHOLOGY YES; Platelet Count 492 K/mm3 (150-450); RBC Distribution Width CV 20.2 % (11.6-14.6); RBC Distribution Width SD 67.6 fl (35.1-43.9); Red Blood Count 3.03 M/mm3 (4.2-5.4); White Blood Count 8.9 K/mm3 (4.4-11.0)
[2020-11-27 18:05] LABS: Differential Indicated SCAN CRITERIA MET
[2020-11-27 18:15] LABS: Color, Urine Red (Yellow); Glucose, Dipstick Normal (Normal); Ketone-Dipstick 15 mg/dl (Negative); Leukocyte Esterase-Dipstick 25 /ul (Negative); Nitrite-Dipstick Negative (Negative); Occult Blood-Urine 250 /ul (Negative); Protein-Dipstick 500 mg/dl (Negative); Urine Bilirubin Dipstick Negative (Negative); Urine Clarity Turbid (Clear); Urine Urobilinogen Normal (Normal); Urine pH 6.5 (5.0 - 8.0)
[2020-11-27 18:21] LABS: AST(SGOT) 16 U/L (15-37); Alanine Aminotransfer ALT/SGPT 14 U/L (13-56); Alkaline Phosphatase 77 U/L (45-117); Bilirubin, Direct 0.09 mg/dL (0.00-0.30); Globulin 6.6 g/dL (2.2-4.2); Protein, Total 8.6 g/dL (6.4-8.2)
[2020-11-27 18:22] LABS: Differential Comment SCANNED
[2020-11-27 18:23] LABS: Anion Gap 6 (5-15); BUN 25 mg/dL (7-18); BUN/Creat Ratio 11.5 RATIO (10-20); Calcium,Total 8.7 mg/dL (8.5-10.1); Chloride 102 mmol/L (98-107); Creatinine, Serum 2.17 mg/dL (0.55-1.02); EST Glomerular Filtration Rate 24 mL/min (>60); Est Glom Filt Rate - Afr Amer 29 mL/min (>60); Estimated Creatinine Clearance 22.12 ml/min; Glucose 145 mg/dL (74-106); Sodium Level 133 mmol/L (136-145)
--- NOTE | 2020-11-27 18:30 | CT_ITS ---
STUDY: CT BRAIN WITHOUT CONTRAST REASON FOR EXAM: Female, 75 years old. CONFUSION/CURRENTLY BEING FOR UTI. Hx of borderline diabetes, HLD and HTN RADIATION DOSAGE (If Supplied By Facility): CTDIvol = ( 44.99 ) mGy, DLP = ( 762.36 ) mGycm TECHNIQUE: Transaxial CT imaging of the brain was performed without administration of intravenous contrast material. Individualized dose optimization techniques were used for this CT. COMPARISON: No relevant priors. FINDINGS: Normal soft tissue structures. Right frontal exostosis externally. There is mild cerebral atrophy with widening of the extra-axial spaces and ventricular dilatation. There are areas of decreased attenuation within the white matter tracts of the supratentorial brain, consistent with microvascular disease changes. Normal basal ganglia and thalami. Normal brainstem. Normal cerebellum. There is no intracranial hemorrhage. There are no findings of an acute ischemic infarction. Normal visualized paranasal sinuses. CT/Brain/Head without Contrast IMPRESSION: Chronic involutional changes of the brain. Electronically Signed: Salvatore Marlow MD at 19:24 EST , Service support ,
[2020-11-27 18:35] LABS: Red Blood Cells-Urine > 100 SEEN /hpf (0-5); White Blood Cells >100 SEEN /hpf (0-5)
[2020-11-27 19:25] LABS: Lactic Acid 0.9 mmol/L (0.4-1.9)
--- NOTE | 2020-11-27 20:27 | PCM.HP.STD ---
Problem List (1) Wheelchair dependence Status: Chronic (2) Anemia Status: Chronic Qualifiers: Anemia type: iron deficiency Iron deficiency anemia type: chronic blood loss Qualified Code(s): D50.0 - Iron deficiency anemia secondary to blood loss (chronic) (3) Pressure ulcer of left thigh Status: Chronic Qualifiers: Pressure injury stage: stage 2 Qualified Code(s): L89.222 - Pressure ulcer of left hip, stage 2 (4) UTI (urinary tract infection) Status: Acute Qualifiers: Indwelling urinary catheter type: unspecified (5) Encephalopathy Status: Acute (6) Dydod-sl-fokijof kidney injury Status: Chronic (7) History of atrial fibrillation Status: Chronic (8) Ulcer of abdomen wall with fat layer exposed Status: Chronic (9) Ulcer of left groin with fat layer exposed Status: Chronic (10) Pressure ulcer of coccygeal region, stage 3 Status: Chronic (11) Morbid obesity Status: Chronic (12) Anxiety and depression Status: Chronic (13) HLD (hyperlipidemia) Status: Chronic Qualifiers: Hyperlipidemia type: unspecified Qualified Code(s): E78.5 - Hyperlipidemia, unspecified (14) UTI (urinary tract infection) due to urinary indwelling catheter Status: Acute Qualifiers: Indwelling urinary catheter type: cystostomy catheter Encounter type: sequela Qualified Code(s): T83.510S - Infection and inflammatory reaction due to cystostomy catheter, sequela; N39.0 - Urinary tract infection, site not specified Comment: Chronic gram negative bacteria (15) Debility Status: Chronic (16) MICHAELLE (acute kidney injury) Status: Acute (17) Depression Status: Chronic Qualifiers: Depression Type: unspecified Qualified Code(s): F32.9 - Major depressive disorder, single episode, unspecified (18) VITA (obstructive sleep apnea) Status: Chronic (19) Candidal intertrigo Status: Chronic History of Present Illness Date of Admission: 11/28/20 Chief Complaint: confusion Patient is unable to provide history secondary to confusion. History was taken from emergency department doctor. The patient is a 75 year old F with a significant history of diabetes; hypertension; atrial fibrillation; morbid obesity; obstructive sleep apnea; pressure ulcer of coccygeal area; chronic suprapubic Henry catheter who presents to the emergency department with confusion. Her symptoms started on the same day of presentation. Also on the day of presentation she had hematuria. Reportedly anytime that she has UTI she becomes confused. Reportedly patient has been on at least 2 rounds of antibiotics recently. Urinalysis at the emergency department showed urine occult blood; ketones; urine protein but with mildly elevated leukocyte esterase. Also there was urine RBC; urine WBC. However no bacteria was seen. Past Medical History Past Medical History (Chronic Problems): Chronic Problems (Last Reviewed 11/28/20 @ 06:[address] Kyree Dutta MD) Wheelchair dependence (Chronic) Anemia (Chronic) Pressure ulcer of left thigh (Chronic) Bkbvt-ie-rysescb kidney injury (Chronic) History of atrial fibrillation (Chronic) Ulcer of abdomen wall with fat layer exposed (Chronic) Ulcer of left groin with fat layer exposed (Chronic) Pressure ulcer of coccygeal region, stage 3 (Chronic) Morbid obesity (Chronic) Anxiety and depression (Chronic) HLD (hyperlipidemia) (Chronic) Debility (Chronic) Depression (Chronic) VITA (obstructive sleep apnea) (Chronic) Candidal intertrigo (Chronic) Medical History: Medical History (Last Reviewed 11/28/20 @ 07:[address] Kyree Dutta MD) History of atrial fibrillation (Chronic) Z86.79 Ulcer of abdomen wall with fat layer exposed (Chronic) L98.492 Ulcer of left groin with fat layer exposed (Chronic) L98.492 Pressure ulcer of coccygeal region, stage 3 (Chronic) L89.153 Morbid obesity (Chronic) E66.01 Anxiety and depression (Chronic) F41.9, F32.9 HLD (hyperlipidemia) (Chronic) E78.5 UTI (urinary tract infection) due to urinary indwelling catheter (Acute) T83.511A, N39.0 Chronic gram negative bacteria Severe sepsis (Inactive) A41.9, R65.20 V tach (Inactive) I47.2 VITA (obstructive sleep apnea) (Chronic) G47.33 Candidal intertrigo (Chronic) B37.2 Debility R53.81 DM2 (diabetes mellitus, type 2) E11.9 Essential hypertension I10 VITA (obstructive sleep apnea) G47.33 Allergies adhesive tape Allergy (Verified 11/27/20 17:20) blisters Influenza Virus Vaccines Allergy (Verified 11/27/20 17:20) shortness of breath/severe wheezing iron Allergy (Verified 01/15/21 17:20) from IV form chest pressure and heart palpitations Sulfa (Sulfonamide Antibiotics) Allergy (Verified 11/27/20 17:20) Shortness of breath bactrim does not work for her-per pcp paperwork meloxicam [From Mobic] Adverse Reaction (Verified 11/27/20 17:20) gi upset seasonal allergies Allergy (Uncoded 11/27/20 17:20) Other Home Medications: Ambulatory Orders Medication Instructions Recorded Furosemide [Lasix] 20 mg PO BID 09/30/13 Albuterol Inhaler [Ventolin Hfa] 2 puff INHALATION Q4H PRN PRN 10/30/18 Gabapentin [Neurontin] 600 mg PO BID 10/30/18 Oxybutynin Chloride [Ditropan Xl] 15 mg PO DAILY 10/30/18 Pravastatin [Pravachol] 20 mg PO QHS 12/17/18 Duloxetine HCl 60 mg PO DINNER 03/22/19 Venlafaxine XR [Effexor Xr] 150 mg PO BID 07/02/19 Potassium Chloride [K-Dur] 10 meq PO DAILYCM 08/18/19 Baclofen 20 mg PO DINNER 03/20/20 Baclofen [Lioresal] 10 mg PO BID 03/20/20 Aspirin [Aspirin, Baby] 81 mg PO DAILY #0 [facility] heart health 08/13/20 Methenamine Hippurate [Hiprex] 1 gm PO BID #0 08/13/20 Famotidine 20 mg PO QHS 10/15/20 Lisinopril [Zestril] 10 mg PO DAILY 10/15/20 Metformin HCl 500 mg PO BID 10/15/20 Cefdinir 300 mg PO BID #10 cap 10/17/20 metoprolol tartrate 25 mg tablet 25 mg PO BID #180 tab 10/19/20 Cephalexin [Keflex] 500 mg PO 4X/DAY #40 cap 11/05/20 Surgical History: Surgical History (Last Reviewed 11/28/20 @ 07:[address] Kyree Dutta MD) H/O: hysterectomy Z90.710 Same time as open gallbladder History of cholecystectomy Z90.49 Open, same time as hysterectomy History of tonsillectomy Z90.89 Hx of appendectomy Z90.49 Surgical History: cholecystectomy, hysterectomy, - - Suprapubic catheter placement. 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 Kyree Dutta MD) UTI (urinary tract infection) (Acute) Encephalopathy (Acute) UTI (urinary tract infection) due to urinary indwelling catheter (Acute) Chronic gram negative bacteria MICHAELLE (acute kidney injury) (Acute) - Physical Exam Vitals/I&O's: Vital Signs Temp Pulse Resp BP Pulse Ox 98 F 88 14 99/59 L 98 11/27/20 20:00 11/27/20 20:00 11/27/20 20:00 11/27/20 20:00 11/27/20 20:00 Oxygen Flow Rate (L/min) 2 Oxygen Delivery Method Nasal Cannula Weight: 136.4 kg Body Mass Index (BMI) 47.0 Finger Stick Blood Glucose 150 General: Confused, Lethargic HEENT: Atraumatic, PERRLA, EOMI, Normocephalic Neck: Supple, No JVD, Negative Carotid Bruits Lungs: Clear to auscultation, Normal air movement Cardiovascular: Regular rate, Normal S1, Normal S2, No murmurs Abdomen: Bowel Sounds Present, Soft, Non Tender Extremities: No edema, Capillary Refill Less than 3 Seconds Skin: - - Escalation in inguinal folds and left armpits. Pressure ulcer on coccyx Musculoskeletal: No Tenderness to Palpation of Joints or Extremities Neurological: - - Does not follow commands Psych/Mental Status: - - Lethargic; confused and does not follow commands Laboratory Results 11/27/20 17:10: Total Bilirubin 0.30, Direct Bilirubin 0.09, AST 16, ALT 14, Alkaline Phosphatase 77, Total Protein 8.6 H, Albumin 2.0 L, Globulin 6.6 H 11/27/20 17:10: WBC 8.9, RBC 3.03 L, Hgb 7.9 L, Hct 27.5 L, MCV 90.8, MCH 26.1 L, MCHC 28.7 L, RDW Std Deviation 67.6 H, RDW Coeff of Jessi 20.2 H, Plt Count 492 H, MPV 9.2, Immature Gran % (Auto) 0.400, Neut % (Auto) 82.3 H, Lymph % (Auto) 7.4 L, [place] % (Auto) 9.3, Eos % (Auto) 0.2, Baso % (Auto) 0.4, Absolute Neuts (auto) 7.4, Absolute Lymphs (auto) 0.66 L, Nucleated RBC % 0, Differential Comment SCANNED 11/27/20 17:10: Sodium 133 L, Potassium 5.0, Chloride 102, Carbon Dioxide 25.0, Anion Gap 6, BUN 25 H, Creatinine 2.17 H, Estim Creat Clear Calc 22.12, Est GFR (MDRD) Af Amer 29 L, Est GFR (MDRD) Non-Af 24 L, BUN/Creatinine Ratio 11.5, Glucose 145 H, Calcium 8.7, Troponin I < 0.015 11/27/20 17:45: Urine Color Red, Urine Clarity Turbid, Urine pH 6.5, Ur Specific [place] 1.020, Urine Protein 500 H, Urine Glucose (UA) Normal, Urine Ketones 15 H, Urine Occult Blood 250 H, Urine Nitrite Negative, Urine Bilirubin Negative, Urine Urobilinogen Normal, Ur Leukocyte Esterase 25 H, Urine RBC > 100 SEEN, Urine WBC >100 SEEN, Ur Squamous Epith Cells 0 SEEN, Urine Bacteria 0 SEEN, Urine Mucus 0 SEEN 11/27/20 18:30: Lactic Acid 0.9 Current Medications Ceftriaxone Sodium 2 gm/ (Sodium Chloride) 50 mls @ 100 mls/hr IV X1 ONE Stop: 11/27/20 20:30 Last Admin: 11/27/20 20:27 Dose: 100 mls/hr Documented by: Assessment/Plan All Active Problems (Last Reviewed 11/28/20 @ 06:[address] Kyree Dutta MD) UTI (urinary tract infection) (Acute) Encephalopathy (Acute) UTI (urinary tract infection) due to urinary indwelling catheter (Acute) MICHAELLE (acute kidney injury) (Acute) Suprapubic catheter dysfunction (Resolved) The patient is a 75 year old F with a significant history of diabetes; hypertension; atrial fibrillation; morbid obesity; obstructive sleep apnea; pressure ulcer of coccygeal area; chronic suprapubic Henry catheter who presents to the emergency department with confusion; hematuria; abnormal urinalysis and on recent antibiotics for UTI.. Acute metabolic encephalopathy Likely secondary to hemorrhagic cystitis. Patient noted to have a urine culture on 11/05/2020 that showed Morganella morganii; Stenotrophomonas maltophilia; gram-negative rods. Sensitivities were reviewed. Patient was given ceftriaxone on his presentation. Antibiotics are switched to cefepime and levofloxacin. Levofloxacin dosed based on creatinine clearance. Also urine culture on 10/14/2020 was positive for presumptive E. coli. Urine culture on 09/15/2020 was positive for E. coli; Acinetobacter baumannii; myroides spp Check TSH and ammonia. Check vitamin B12. Acute hemorrhagic cystitis Suprapubic catheter contributing Treatment of UTI as above Consult urology MICHAELLE Baseline creatinine is around 1.5-1.6. On presentation creatinine was 2.17. Hydration ordered. Trend BMP. Cutaneous candidiasis Nystatin powder ordered. Stage III pressure ulcer Calmoseptine cream ordered Wound care consult. DVT Prophylaxis SCD Avoid chemical thrombolysis secondary to hematuria. Inpatient E&M: 07244 Init Hosp L3
--- NOTE | 2020-11-27 21:56 | NURSING ---
Pt arousable but very sleepy. VSS. One touch 124. Texted ER charge operator to see what pt was like for them. They stated family indicated pt has not slept in days and that she was arousable but confused.
[2020-11-27 22:01] LABS: Bedside Glucose 124 mg/dL (70-110)
[2020-11-27] MEDS: 0.9% Normal Saline 1,000 ML 100 ML IV (23:09)
[2020-11-27] MEDS: 0.9% Saline Lock 10 ML Syringe IV (23:10)
[2020-11-27] MEDS: levoFLOXacin IV 500 MG/100 ML BAG 100 MG IV (23:11)
[2020-11-27 23:15] LABS: Bedside Glucose 116 mg/dL (70-110)
--- NOTE | 2020-11-27 23:56 | NURSING ---
Pt's sister, Esperanza Ribeiro, called in and asked about the pt. She states that when she gets UTIs she becomes confused & sleeps alot. Esperanza will bring in home med list 11/28.
[2020-11-28] VITALS (7 sets, daily range): BP systolic 104–119; BP diastolic 56–75; PULSE 88–93; RESP 16–18; TEMP 36.6–37.3; O2SAT 85–99
--- NOTE | 2020-11-28 00:27 | NURSING ---
Pandemic Documentation Initiated Emergency Documentation Start: 11/28/20 00:26 Freq: ONCE Status: Active Protocol: Created 11/28/20 00:26 OWEN ([facility]20 [id number]
[2020-11-28 06:04] LABS: Absolute Lymphocyte Count 0.83 X10^3/uL (0.83-4.51); Absolute Neutrophil Count 2.9 X10^3/uL (2.0-7.7); Basophil# 0.01 X10^3/uL; Basophil% 0.2 % (0-1); Eosinophil# 0.07 X10^3/uL; Eosinophils% 1.6 % (0-5); Hematocrit 25.4 % (37-47); Hemoglobin 7.4 g/dL (12.0-15.0); Lymphocyte # 0.83 X10^3/ul (4.0); Lymphocyte % 18.9 % (19-41); Mean Corp Hgb Conc 29.1 g/dL (32-36); Mean Corpuscular Hgb 26.4 pg (27.0-32.0); Mean Corpuscular Volume 90.7 fL (81-99); Mean Platelet Vol. 8.8 fl (6.2-12.0); Monocyte# 0.59 X10^3/uL; Monocyte% 13.4 % (0-10); NRBC Flagged by Analyzer 0 % (0-5); Neutrophil # 2.88 X10^3/uL (2.7-7.7); Neutrophil % 65.4 % (47-70); POSITIVE MORPHOLOGY YES; Platelet Count 345 K/mm3 (150-450); RBC Distribution Width CV 20.1 % (11.6-14.6); RBC Distribution Width SD 66.5 fl (35.1-43.9); White Blood Count 4.4 K/mm3 (4.4-11.0)
[2020-11-28 06:06] LABS: Differential Indicated SCAN CRITERIA MET
[2020-11-28] MEDS: Menthol/Lanolin/Calamine/Znox 113 GM Tube 1 APPLIC TOPICAL ×3 (06:25→22:08)
[2020-11-28] MEDS: Nystatin Ointment 1 APPLIC TOPICAL ×3 (06:25→22:09)
[2020-11-28 06:30] LABS: Bedside Glucose 115 mg/dL (70-110)
[2020-11-28 06:44] LABS: Anisocytosis 3+; Differential Comment SCANNED; Hypochromasia 2+
[2020-11-28 06:50] LABS: Anion Gap 4 (5-15); BUN 24 mg/dL (7-18); BUN/Creat Ratio 12.4 RATIO (10-20); Calcium,Total 8.5 mg/dL (8.5-10.1); Chloride 106 mmol/L (98-107); Creatinine, Serum 1.94 mg/dL (0.55-1.02); EST Glomerular Filtration Rate 27 mL/min (>60); Est Glom Filt Rate - Afr Amer 32 mL/min (>60); Estimated Creatinine Clearance 24.74 ml/min; Glucose 102 mg/dL (74-106); Potassium 4.2 mmol/L (3.5-5.1); Sodium Level 138 mmol/L (136-145); Thyroid Stim Hormone (TSH) 1.38 uIU/mL (0.358-3.74)
--- NOTE | 2020-11-28 08:26 | PCM.PN.HOSP ---
Patient Problems: Active and Suspected Problems (Last Reviewed 11/28/20 @ 07:[address] Kyree Dutta MD) UTI (urinary tract infection) (Acute) Encephalopathy (Acute) UTI (urinary tract infection) due to urinary indwelling catheter (Acute) Chronic gram negative bacteria MICHAELLE (acute kidney injury) (Acute) Reason for Visit: Follow-up for hemorrhagic cystitis with UTI Objective: Seen and examined. Patient is drowsy and lethargic. Heart rate and blood pressure controlled. Afebrile. Patient is confused, disoriented to time, place and person. Seems has mild dementia. Has suprapubic catheter and was recently changed. This is being managed by Dr. Isaacs as an outpatient. Physical exam General: Confused, disoriented, lethargic. HEENT: Atraumatic, PERRLA, EOMI, Normocephalic Oral: No Gingival or Mucosal Lesions/ Ulcerations Neck: Supple, No JVD, Negative Carotid Bruits Lungs: Air entry diminished in bilateral lung bases. No crepitation/rhonchi Cardiovascular: Regular rate, Regular Rhythm, Normal S1, Normal S2, No murmurs Abdomen: Bowel Sounds Present, Soft, Non Tender, Non-Distended : Dark, turbid, cola colored urine. Suprapubic catheter. No renal angle tenderness. No suprapubic tenderness. Extremities: No. Edema, Capillary Refill Less than 3 Seconds Skin: No rashes, No breakdown Musculoskeletal: No Tenderness to Palpation of Joints or Extremities. Mild loss of extremity muscles, atrophy Neurological: Cranial nerves II-XII grossly intact, Deep Tendon Reflexes 2+/4 and Symmetrical, Neuro grossly intact Psych/Mental Status: Confused. Dementia Vitals/I&O's: Vital Signs Temp Pulse Resp BP Pulse Ox 98.6 F 88 18 119/75 94 11/28/20 04:00 11/28/20 04:00 11/28/20 04:00 11/28/20 04:00 11/28/20 04:00 Oxygen Flow Rate (L/min) 2 Oxygen Delivery Method Nasal Cannula Weight: 297 lb 6.457 oz Body Mass Index (BMI) 46.5 Finger Stick Blood Glucose 150 Intake and Output for Last 24 Hours 11/26/20 11/27/20 11/28/20 23:59 23:59 23:59 Intake Total 53.33 / 53.33 100 / 100 Output Total 900 / 900 Balance 53.33 / 53.33 -800 / -800 Laboratory Results 11/27/20 17:10: Total Bilirubin 0.30, Direct Bilirubin 0.09, AST 16, ALT 14, Alkaline Phosphatase 77, Total Protein 8.6 H, Albumin 2.0 L, Globulin 6.6 H 11/27/20 17:10: WBC 8.9, RBC 3.03 L, Hgb 7.9 L, Hct 27.5 L, MCV 90.8, MCH 26.1 L, MCHC 28.7 L, RDW Std Deviation 67.6 H, RDW Coeff of Jessi 20.2 H, Plt Count 492 H, MPV 9.2, Immature Gran % (Auto) 0.400, Neut % (Auto) 82.3 H, Lymph % (Auto) 7.4 L, [place] % (Auto) 9.3, Eos % (Auto) 0.2, Baso % (Auto) 0.4, Absolute Neuts (auto) 7.4, Absolute Lymphs (auto) 0.66 L, Nucleated RBC % 0, Differential Comment SCANNED 11/27/20 17:10: Sodium 133 L, Potassium 5.0, Chloride 102, Carbon Dioxide 25.0, Anion Gap 6, BUN 25 H, Creatinine 2.17 H, Estim Creat Clear Calc 22.12, Est GFR (MDRD) Af Amer 29 L, Est GFR (MDRD) Non-Af 24 L, BUN/Creatinine Ratio 11.5, Glucose 145 H, Calcium 8.7, Troponin I < 0.015 11/27/20 17:45: Urine Color Red, Urine Clarity Turbid, Urine pH 6.5, Ur Specific [place] 1.020, Urine Protein 500 H, Urine Glucose (UA) Normal, Urine Ketones 15 H, Urine Occult Blood 250 H, Urine Nitrite Negative, Urine Bilirubin Negative, Urine Urobilinogen Normal, Ur Leukocyte Esterase 25 H, Urine RBC > 100 SEEN, Urine WBC >100 SEEN, Ur Squamous Epith Cells 0 SEEN, Urine Bacteria 0 SEEN, Urine Mucus 0 SEEN 11/27/20 18:30: Lactic Acid 0.9 11/27/20 21:54: POC Glucose 124 H 11/27/20 23:11: POC Glucose 116 H 11/28/20 05:41: Sodium 138, Potassium 4.2, Chloride 106, Carbon Dioxide 28.0, Anion Gap 4 L, BUN 24 H, Creatinine 1.94 H, Estim Creat Clear Calc 24.74, Est GFR (MDRD) Af Amer 32 L, Est GFR (MDRD) Non-Af 27 L, BUN/Creatinine Ratio 12.4, Glucose 102, Calcium 8.5, TSH 1.38 11/28/20 05:41: Vitamin B12 Pending 11/28/20 05:41: Ammonia 23.0 11/28/20 05:41: WBC 4.4, RBC 2.80 L, Hgb 7.4 L, Hct 25.4 L, MCV 90.7, MCH 26.4 L, MCHC 29.1 L, RDW Std Deviation 66.5 H, RDW Coeff of Jessi 20.1 H, Plt Count 345, MPV 8.8, Immature Gran % (Auto) 0.500, Neut % (Auto) 65.4, Lymph % (Auto) 18.9 L, [place] % (Auto) 13.4 H, Eos % (Auto) 1.6, Baso % (Auto) 0.2, Absolute Neuts (auto) 2.9, Absolute Lymphs (auto) 0.83, Nucleated RBC % 0, Differential Comment SCANNED, Hypochromasia 2+, Anisocytosis 3+ 11/28/20 06:27: POC Glucose 115 H Current Medications Acetaminophen (Acetaminophen 325 Mg Tablet) 650 mg PO Q6H PRN PRN PRN Reason: Pain Score 1-10/Temp > 100.7 F Calamine/Phenol (Menthol/Lanolin/Calamine/Znox 113 Gm Tube) 1 applic TOPICAL TID [facility]; Protocol Last Admin: 11/28/20 06:25 Dose: 1 applicatio Documented by: Dextrose (Dextrose 50%-Water 25 Gm/50 Ml Disp.Syrin) 0 gm IV X1 PRN; Protocol PRN Reason: Hypoglycemia Glucagon (Glucagon 1 Mg/Ml Syringe) 1 mg IM .X1 PRN PRN Reason: Hypoglycemia Sodium Chloride () 250 mls @ 15 mls/hr IV .[id number] PRN PRN Reason: Saline Flush Sodium Chloride () 250 mls @ 15 mls/hr IV .[id number] PRN PRN Reason: Additional IVPB Infusion Cefepime HCl 2 gm/ Sodium (Chloride) 100 mls @ 200 mls/hr IV Q24 ZARINA Levofloxacin (Levaquin Iv) 250 mg in 50 mls @ 50 mls/hr IV Q24H ZARINA Sodium Chloride () 1,000 mls @ 100 mls/hr IV .Q10H [facility] Last Infusion: 11/28/20 00:11 Dose: 100 mls/hr Documented by: Insulin Human Lispro (Insulin Lispro 100 Unit/Ml Insuln.Pen) 0 unit SC ACHS [facility]; Protocol Last Admin: 11/28/20 06:27 Dose: Not Given Documented by: Nystatin (Nystatin Ointment) 1 applic TOPICAL TID [facility]; Protocol Last Admin: 11/28/20 06:25 Dose: 1 applicatio Documented by: Ondansetron HCl (Ondansetron 4 Mg/2 Ml Vial) 4 mg IV Q8H PRN PRN PRN Reason: NAUSEA/VOMITING Senna/Docusate Sodium (Senna/Docusate Sodium 1 Tablet) 2 tablet PO BID PRN PRN PRN Reason: Constipation Sodium Chloride (0.9% Saline Lock 10 Ml Syringe) 10 - 40 ml IV UD PRN PRN Reason: SALINE FLUSH Last Admin: 11/27/20 23:10 Dose: 10 ml Documented by: Medical Necessity - Tobacco Use Smoking Status: Never smoker Assessment/Plan All Active Problems (Last Reviewed 11/28/20 @ 07:[address] Kyree Dutta MD) UTI (urinary tract infection) (Acute) Encephalopathy (Acute) UTI (urinary tract infection) due to urinary indwelling catheter (Acute) MICHAELLE (acute kidney injury) (Acute) Suprapubic catheter dysfunction (Resolved) The patient is a 75 year old F with a significant history of diabetes; hypertension; atrial fibrillation; morbid obesity; obstructive sleep apnea; pressure ulcer of coccygeal area; chronic suprapubic Henry catheter was admitted from ER with confusion, hematuria, UA suggestive of UTI. 1. Acute encephalopathy most probably metabolic, possible infectious; multifactorial with gram-negative odin UTI: Patient has history of hemorrhagic cystitis. UA shows more than 100 RBC, and WBC. Negative nitrite. Negative LE. Urine bacteria and mucus. Protein 500. Ketones 15.Urine culture shows more than 100,000 colonies of gram-negative odin. urine culture on 11/05/2020 that showed Morganella morganii; Stenotrophomonas maltophilia; gram-negative rods. Urine culture on 09/15/2020 was positive for E. coli; Acinetobacter baumannii; myroides spp. Currently on IV cefepime. Ammonia 23, TSH 1.38. B12 pending. 2. Acute hemorrhagic cystitis: Patient has suprapubic catheter. Urologist Dr. Andrews was consulted but he is out of town on weekend. 3. Acute kidney injury most probably secondary to dehydration/possible ATN from infection: Baseline creatinine around 1.5-1.6. On presentation creatinine was 2.17. IV fluid. Serial BUN/creatinine shows mild improvement. 4. Cutaneous candidiasis Nystatin powder 5. Stage III pressure ulcer Calmoseptine cream Wound care consult. 6. DVT Prophylaxis SCD Avoid chemical thrombolysis secondary to hematuria. Inpatient E&M: 06538 Subs Hosp L2
[2020-11-28] MEDS: 0.9% Normal Saline 1,000 ML 100 ML IV ×2 (10:22→20:21)
--- NOTE | 2020-11-28 10:27 | NURSING ---
PT PLACED ON O2 2L NC - 91%
[2020-11-28 11:41] LABS: Bedside Glucose 119 mg/dL (70-110)
--- NOTE | 2020-11-28 12:01 | NURSING ---
DR ORTIZ NOTIFIED OF CONSULT. STATES HE IS CURRENTLY OUT OF TOWN.
[2020-11-28] MEDS: 0.9% Saline Lock 10 ML Syringe IV (15:05)
[2020-11-28] MEDS: Acetaminophen 325 MG Tablet 650 MG PO (15:05)
[2020-11-28] MEDS: Ondansetron 4 MG/2 ML Vial IV (15:05)
[2020-11-28 17:06] LABS: Bedside Glucose 93 mg/dL (70-110)
--- NOTE | 2020-11-28 17:36 | CM.UR ---
TONI MARTINES Face to Face with patient for initial transition planning/care coordination assessment. TONI MARTINES introduced self and role at [facility]. Patient lying in bed, alert and oriented. Patient willing to participate in assessment and is able to answer all questions appropriately. Care providers, pharmacy, and demographics verified. Patient wishes to discharge home. PCP: Bianca Specialists: Darryl, urologist Preferred Pharmacy: [place] Insurance: nooked, [employer] supp Prescription Benefit: yes Living Will/HPOA: yes sister Esperanza Ribeiro LNOK: sister Living Arrangements: Patient lives with caregiver in a single story home with no steps to enter the home. Caregiver assists with care. Transportation: sister, caregiver DME: Patient states she has sit to stand, grab bars, shower chair, hospital bed, electric WC, and oxygen 2lpm PRN through [employer]. HHC: [facility] Patient goal: Patient to discharge home with family & caregiver support. Initially denied any needs. Discussed with patient the wounds she has and offered C for nurse to follow up on wounds. verb agreement. States she wants [facility] as she has had them in past several times. DC [facility]. Jono Cowart RN, CCM.
[2020-11-28] MEDS: levoFLOXacin IV 250 MG/50 ML BAG 50 MG IV (22:08)
[2020-11-28 22:36] LABS: Bedside Glucose 84 mg/dL (70-110)
[2020-11-29] VITALS (14 sets, daily range): BP systolic 94–117; BP diastolic 42–64; PULSE 92–115; RESP 16; TEMP 37–37.7; O2SAT 95–99
[2020-11-29] MEDS: Menthol/Lanolin/Calamine/Znox 113 GM Tube 1 APPLIC TOPICAL ×3 (06:13→23:00)
[2020-11-29] MEDS: 0.9% Normal Saline 1,000 ML 100 ML IV ×2 (06:13→17:23)
[2020-11-29] MEDS: Nystatin Ointment 1 APPLIC TOPICAL ×3 (06:13→23:01)
[2020-11-29 06:40] LABS: Bedside Glucose 90 mg/dL (70-110)
--- NOTE | 2020-11-29 07:54 | PCM.PN.HOSP ---
Patient Problems: Active and Suspected Problems (Last Reviewed 11/28/20 @ 07:[address] Kyree Dutta MD) UTI (urinary tract infection) (Acute) Encephalopathy (Acute) UTI (urinary tract infection) due to urinary indwelling catheter (Acute) Chronic gram negative bacteria MICHAELEL (acute kidney injury) (Acute) Reason for Visit: Follow-up for hemolytic cystitis, UTI Objective: Afebrile. Blood pressure and heart rate in normal range. Heart rate in 100s. T-max 99.3. Blood pressure in 90s -100s. Physical exam Physical exam General: Alert, awake and oriented x3. Comprehensive. HEENT: Atraumatic, PERRLA, EOMI, Normocephalic Oral: No Gingival or Mucosal Lesions/ Ulcerations Neck: Supple, No JVD, Negative Carotid Bruits Lungs: Air entry diminished in bilateral lung bases. No crepitation/rhonchi Cardiovascular: Regular rate, Regular Rhythm, Normal S1, Normal S2, No murmurs Abdomen: Bowel Sounds Present, Soft, Non Tender, Non-Distended : Dark, turbid, purulent, pus flecks, cola colored urine in tube. Suprapubic catheter. No renal angle or suprapubic tenderness. Extremities: No ankle edema, Capillary Refill Less than 3 Seconds Skin: No rashes, No breakdown Musculoskeletal: No Tenderness to Palpation of Joints or Extremities. Mild loss of extremity muscles, atrophy Neurological: Cranial nerves II-XII grossly intact, Deep Tendon Reflexes 2+/4 and Symmetrical, Neuro grossly intact Psych/Mental Status: Confused. Dementia Vitals/I&O's: Vital Signs Temp Pulse Resp BP Pulse Ox 98.8 F 97 16 113/53 L 95 11/29/20 03:00 11/29/20 03:00 11/29/20 03:00 11/29/20 03:00 11/29/20 03:00 Oxygen Flow Rate (L/min) 2 Oxygen Delivery Method Nasal Cannula Weight: 297 lb 6.457 oz Body Mass Index (BMI) 46.5 Finger Stick Blood Glucose 150 Intake and Output for Last 24 Hours 11/27/20 11/28/20 11/29/20 23:59 23:59 23:59 Intake Total 53.33 / 53.33 2815.00 / 2815.00 1386.67 / 1386.67 Output Total 2925 / 2925 1050 / 1050 Balance 53.33 / 53.33 -110.00 / -110.00 336.67 / 336.67 Microbiology Past 72 Hours 11/27/20 17:45 Urine Catheter - Catheter Urine Culture - Preliminary Gram negative odin Laboratory Results 11/27/20 17:45: Urine Color Red, Urine Clarity Turbid, Urine pH 6.5, Ur Specific [place] 1.020, Urine Protein 500 H, Urine Glucose (UA) Normal, Urine Ketones 15 H, Urine Occult Blood 250 H, Urine Nitrite Negative, Urine Bilirubin Negative, Urine Urobilinogen Normal, Ur Leukocyte Esterase 25 H, Urine RBC > 100 SEEN, Urine WBC >100 SEEN, Ur Squamous Epith Cells 0 SEEN, Urine Bacteria 0 SEEN, Urine Mucus 0 SEEN 11/28/20 11:34: POC Glucose 119 H 11/28/20 17:02: POC Glucose 93 11/28/20 22:14: POC Glucose 84 11/29/20 06:33: POC Glucose 90 Current Medications Acetaminophen (Acetaminophen 325 Mg Tablet) 650 mg PO Q6H PRN PRN PRN Reason: Pain Score 1-10/Temp > 100.7 F Last Admin: 11/28/20 15:05 Dose: 650 mg Documented by: Calamine/Phenol (Menthol/Lanolin/Calamine/Znox 113 Gm Tube) 1 applic TOPICAL TID [facility]; Protocol Last Admin: 11/29/20 06:13 Dose: 1 applicatio Documented by: Dextrose (Dextrose 50%-Water 25 Gm/50 Ml Disp.Syrin) 0 gm IV X1 PRN; Protocol PRN Reason: Hypoglycemia Glucagon (Glucagon 1 Mg/Ml Syringe) 1 mg IM .X1 PRN PRN Reason: Hypoglycemia Sodium Chloride () 250 mls @ 15 mls/hr IV .[id number] PRN PRN Reason: Saline Flush Sodium Chloride () 250 mls @ 15 mls/hr IV .[id number] PRN PRN Reason: Additional IVPB Infusion Cefepime HCl 2 gm/ Sodium (Chloride) 100 mls @ 200 mls/hr IV Q24 [facility] Last Infusion: 11/28/20 10:52 Dose: Infused Documented by: Levofloxacin (Levaquin Iv) 250 mg in 50 mls @ 50 mls/hr IV Q24H [facility] Last Infusion: 11/28/20 23:27 Dose: Infused Documented by: Sodium Chloride () 1,000 mls @ 100 mls/hr IV .Q10H ZARINA Last Admin: 11/29/20 06:13 Dose: 100 mls/hr Documented by: Insulin Human Lispro (Insulin Lispro 100 Unit/Ml Insuln.Pen) 0 unit SC ACHS [facility]; Protocol Last Admin: 11/29/20 06:34 Dose: Not Given Documented by: L-Arginine/L-Glutamine/Calcium HMB (John (Unflavored) Packet) 1 packet PO BIDCM [facility] Nystatin (Nystatin Ointment) 1 applic TOPICAL TID [facility]; Protocol Last Admin: 11/29/20 06:13 Dose: 1 applicatio Documented by: Ondansetron HCl (Ondansetron 4 Mg/2 Ml Vial) 4 mg IV Q8H PRN PRN PRN Reason: NAUSEA/VOMITING Last Admin: 11/28/20 15:05 Dose: 4 mg Documented by: Senna/Docusate Sodium (Senna/Docusate Sodium 1 Tablet) 2 tablet PO BID PRN PRN PRN Reason: Constipation Sodium Chloride (0.9% Saline Lock 10 Ml Syringe) 10 - 40 ml IV UD PRN PRN Reason: SALINE FLUSH Last Admin: 11/28/20 15:05 Dose: 10 ml Documented by: Medical Necessity - Tobacco Use Smoking Status: Never smoker Assessment/Plan All Active Problems (Last Reviewed 11/28/20 @ 07:[address] Kyree Dutta MD) UTI (urinary tract infection) (Acute) Encephalopathy (Acute) UTI (urinary tract infection) due to urinary indwelling catheter (Acute) MICHAELLE (acute kidney injury) (Acute) Suprapubic catheter dysfunction (Resolved) The patient is a 75 year old F with a significant history of diabetes; hypertension; atrial fibrillation; morbid obesity; obstructive sleep apnea; pressure ulcer of coccygeal area; chronic suprapubic Henry catheter was admitted from ER with confusion, hematuria, UA suggestive of UTI. 1. Acute encephalopathy most probably metabolic, possible infectious; multifactorial with gram-negative odin UTI: Patient has history of hemorrhagic cystitis. UA shows more than 100 RBC, and WBC. Negative nitrite. Negative LE. Urine bacteria and mucus. Protein 500. Ketones 15.Urine culture shows more than 100,000 colonies of gram-negative odin. urine culture on 11/05/2020 that showed Morganella morganii; Stenotrophomonas maltophilia; gram-negative rods. Urine culture on 09/15/2020 was positive for E. coli; Acinetobacter baumannii; myroides spp. Patient was on IV cefepime Ammonia 23, TSH 1.38. B12 pending. 11/29: Preliminary urine culture shows Pseudomonas more than 100,000 colonies, organism identification from previous yesterday. I will change the antibiotic to Zosyn. 2. Acute on chronic anemia may be from infection/hemorrhagic cystitis: Decrease in the hemoglobin from 7.9-7.22. Patient hemoglobin has been low between 6.5-8.3 in October 2020. MCV 90, low MCH. Leukopenia 3.8 thousand. 1 unit of PRBC transfusion ordered with group and crossmatch. Anemia work-up including reticulocyte panel, haptoglobin, iron studies ordered. Acute hemorrhagic cystitis: Patient has suprapubic catheter. Urologist Dr. Andrews was consulted but he is out of town on weekend. 3. Acute kidney injury most probably secondary to dehydration/possible ATN from infection: Baseline creatinine around 1.5-1.6. On presentation creatinine was 2.17. IV fluid. Serial BUN/creatinine shows mild improvement. 4. Cutaneous candidiasis Nystatin powder 5. Stage III pressure ulcer Calmoseptine cream Wound care consult. 6. DVT Prophylaxis SCD Avoid chemical thrombolysis secondary to hematuria. Microbiology Past 72 Hours 11/27/20 17:45 Urine Catheter - Catheter Urine Culture - Preliminary Gram negative odin Laboratory Results 11/27/20 17:45: Urine Color Red, Urine Clarity Turbid, Urine pH 6.5, Ur Specific [place] 1.020, Urine Protein 500 H, Urine Glucose (UA) Normal, Urine Ketones 15 H, Urine Occult Blood 250 H, Urine Nitrite Negative, Urine Bilirubin Negative, Urine Urobilinogen Normal, Ur Leukocyte Esterase 25 H, Urine RBC > 100 SEEN, Urine WBC >100 SEEN, Ur Squamous Epith Cells 0 SEEN, Urine Bacteria 0 SEEN, Urine Mucus 0 SEEN 11/28/20 11:34: POC Glucose 119 H 11/28/20 17:02: POC Glucose 93 11/28/20 22:14: POC Glucose 84 11/29/20 06:33: POC Glucose 90 Inpatient E&M: 07359 Subs Hosp L2
[2020-11-29 08:34] LABS: Absolute Lymphocyte Count 0.85 X10^3/uL (0.83-4.51); Absolute Neutrophil Count 2.3 X10^3/uL (2.0-7.7); Basophil# 0.03 X10^3/uL; Basophil% 0.8 % (0-1); Eosinophils% 2.6 % (0-5); Hematocrit 24.2 % (37-47); Hemoglobin 7.2 g/dL (12.0-15.0); Lymphocyte # 0.85 X10^3/ul (4.0); Lymphocyte % 22.1 % (19-41); Mean Corp Hgb Conc 29.8 g/dL (32-36); Mean Corpuscular Hgb 26.8 pg (27.0-32.0); Mean Platelet Vol. 8.7 fl (6.2-12.0); Monocyte# 0.58 X10^3/uL; Monocyte% 15.1 % (0-10); NRBC Flagged by Analyzer 0 % (0-5); Neutrophil # 2.25 X10^3/uL (2.7-7.7); Neutrophil % 58.6 % (47-70); POSITIVE MORPHOLOGY YES; Platelet Count 358 K/mm3 (150-450); RBC Distribution Width CV 20.8 % (11.6-14.6); RBC Distribution Width SD 66.9 fl (35.1-43.9); Red Blood Count 2.69 M/mm3 (4.2-5.4); White Blood Count 3.8 K/mm3 (4.4-11.0)
[2020-11-29 08:35] LABS: Differential Indicated SCAN CRITERIA MET
[2020-11-29] MEDS: Acetaminophen 325 MG Tablet 650 MG PO ×2 (08:37→23:25)
[2020-11-29] MEDS: Juven (unflavored) Packet 1 PACKET PO ×2 (08:37→16:07)
[2020-11-29 08:51] LABS: Anion Gap 3 (5-15); BUN 17 mg/dL (7-18); BUN/Creat Ratio 9.9 RATIO (10-20); Calcium,Total 8.5 mg/dL (8.5-10.1); Chloride 110 mmol/L (98-107); Creatinine, Serum 1.72 mg/dL (0.55-1.02); EST Glomerular Filtration Rate 31 mL/min (>60); Est Glom Filt Rate - Afr Amer 37 mL/min (>60); Estimated Creatinine Clearance 27.91 ml/min; Glucose 87 mg/dL (74-106); Potassium 4.2 mmol/L (3.5-5.1); Sodium Level 140 mmol/L (136-145)
[2020-11-29 08:59] LABS: Anisocytosis 2+
[2020-11-29 11:26] LABS: Bedside Glucose 117 mg/dL (70-110)
[2020-11-29 15:56] LABS: Bedside Glucose 112 mg/dL (70-110)
[2020-11-29 16:07] LABS: Platelet Count 340 K/mm3 (150-450); RET-HE 30.8 pg (30-35)
[2020-11-29 16:41] LABS: Ferritin 62 ng/mL (8-252); Iron 27 ug/dL (50-170); Iron Binding Capacity,Total 110 ug/dL (250-450); PERCENT IRON SATURATION 24.5 % (15.0-55.0)
[2020-11-29 23:36] LABS: Bedside Glucose 102 mg/dL (70-110)
[2020-11-30] MEDS: MELATONIN 3 MG TABLET PO (02:00)
[2020-11-30 03:30] VITALS: BP 122/61; PULSE 101; RESP 16; TEMP 37.1; O2SAT 99
[2020-11-30] MEDS: 0.9% Normal Saline 1,000 ML 100 ML IV ×2 (05:11→21:29)
[2020-11-30] MEDS: Nystatin Ointment 1 APPLIC TOPICAL ×3 (05:11→21:33)
[2020-11-30] MEDS: Menthol/Lanolin/Calamine/Znox 113 GM Tube 1 APPLIC TOPICAL ×3 (05:12→21:32)
[2020-11-30 06:36] LABS: Bedside Glucose 96 mg/dL (70-110)
[2020-11-30 06:55] LABS: Absolute Lymphocyte Count 0.99 X10^3/uL (0.83-4.51); Absolute Neutrophil Count 2.5 X10^3/uL (2.0-7.7); Basophil# 0.05 X10^3/uL; Basophil% 1.2 % (0-1); Eosinophil# 0.17 X10^3/uL; Hematocrit 26.6 % (37-47); Hemoglobin 7.9 g/dL (12.0-15.0); Lymphocyte # 0.99 X10^3/ul (4.0); Lymphocyte % 23.2 % (19-41); Mean Corp Hgb Conc 29.7 g/dL (32-36); Mean Corpuscular Hgb 26.5 pg (27.0-32.0); Mean Corpuscular Volume 89.3 fL (81-99); Monocyte# 0.52 X10^3/uL; Monocyte% 12.2 % (0-10); NRBC Flagged by Analyzer 0 % (0-5); Neutrophil # 2.46 X10^3/uL (2.7-7.7); Neutrophil % 57.5 % (47-70); Platelet Count 358 K/mm3 (150-450); RBC Distribution Width CV 19.7 % (11.6-14.6); RBC Distribution Width SD 64.2 fl (35.1-43.9); Red Blood Count 2.98 M/mm3 (4.2-5.4); White Blood Count 4.3 K/mm3 (4.4-11.0)
[2020-11-30 07:16] LABS: Anion Gap 6 (5-15); BUN 24 mg/dL (7-18); BUN/Creat Ratio 15.3 RATIO (10-20); Calcium,Total 8.1 mg/dL (8.5-10.1); Chloride 102 mmol/L (98-107); Creatinine, Serum 1.57 mg/dL (0.55-1.02); EST Glomerular Filtration Rate 34 mL/min (>60); Est Glom Filt Rate - Afr Amer 41 mL/min (>60); Estimated Creatinine Clearance 30.57 ml/min; Glucose 85 mg/dL (74-106); Potassium 4.1 mmol/L (3.5-5.1); Sodium Level 132 mmol/L (136-145)
[2020-11-30 08:28] VITALS: O2SAT 98
[2020-11-30 08:41] LABS: Vitamin B12 582 pg/mL (211-911)
--- NOTE | 2020-11-30 08:41 | NURSING ---
wound photo: yimi
--- NOTE | 2020-11-30 09:22 | CASEMGMT ---
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 Asya Aocsta BOTTOM MAN, INFORMATION TECHNOLOGY AUDITOR
[2020-11-30 09:46] VITALS: BP 159/76; PULSE 103; RESP 18; TEMP 37.1; O2SAT 99
[2020-11-30] MEDS: Juven (unflavored) Packet 1 PACKET PO ×2 (09:49→17:24)
--- NOTE | 2020-11-30 10:49 | PCM.TXEXTCAR ---
- Diet 11/27/20 22:36 Diet: Consistent Carb - Calorie Controlled Food consistency:: Regular Liquid Consistency:: Regular/Thin Dietary Modifications:: Cardiac / Heart Healthy How many daily calories?: 1800 calorie - Routine Orders/Code Status Suppository Type: Dulcolax 10mg Suppository Frequency: Daily PRN Code Status: Full Code - Wound(s) Coccyx Wound Type: Pressure Injury Dressing Change: Dry Sterile Dressing Right great toe Wound Type: scab Right 2 toe Wound Type: scab LEFT GREAT TOE Wound Type: scab LEFT SECOND GREAT Wound Type: scab left posterior thigh Wound Type: Abrasion - Therapies Weight Bearing: Weight bearing as tolerated Extremity Affected:: Bilateral Lower Physical Therapy: Eval and Treat Occupational Therapy: Eval and Treat Speech Therapy: Eval and Treat - Allergies/Procedures Done in Hospital Allergies/Adverse Reactions: Allergies adhesive tape Allergy (Verified 11/27/20 17:20) blisters Influenza Virus Vaccines Allergy (Verified 11/27/20 17:20) shortness of breath/severe wheezing iron Allergy (Verified 11/27/20 17:20) from IV form chest pressure and heart palpitations Sulfa (Sulfonamide Antibiotics) Allergy (Verified 11/27/20 17:20) Shortness of breath bactrim does not work for her-per pcp paperwork meloxicam [From Mobic] Adverse Reaction (Verified 11/27/20 17:20) gi upset seasonal allergies Allergy (Uncoded 11/27/20 17:20) Other - Type of Care/Length of Stay Estimated LOS: Convalescent Care Less Than 30 days Type of Care Needed: Skilled Rehab Potential: Good Prognosis: Good - Additional Orders/Day of Discharge Additional Orders: Plavix is discontinued because patient had PCI, LAD stent in 2006, increased bruising, mild thrombocytopenia, platelet count about 125,000 and patient is on aspirin and Eliquis. Eliquis only for 2 weeks for DVT prophylaxis for COVID-19 infection. Patient has chronic idiopathic thrombocytopenia Day of Discharge: 11/30/20 - Dietary and Speech Recommendations Dietitian Recommendations/Changes: Will add cardiac diet restriction to current 1800 calorie/carb-controlled diet. Will add John 1 packet BID for wound healing. - Follow Up Care Primary Care Physician: Colby Valenzuela DO [Primary Care Provider] - Please follow up with your Primary Care Physician in: in 2 weeks Please Follow Up With: Jacky Ventura MD When: in 4 weeks Please Follow Up With: Keon Hill MD When: in 3-4 weeks Please Follow Up With: Nell Gray MD When: for RA
[2020-11-30] MEDS: Furosemide 40 MG/4 ML Vial IV (11:39)
[2020-11-30 12:50] LABS: Bedside Glucose 135 mg/dL (70-110)
[2020-11-30 14:46] VITALS: BP 128/60; PULSE 100; RESP 18; TEMP 37.2; O2SAT 97
[2020-11-30] MEDS: levoFLOXacin 500 MG Tablet PO (15:04)
--- NOTE | 2020-11-30 16:21 | CON.PCM_ITS ---
Problem List (1) UTI (urinary tract infection) Status: Acute Qualifiers: Indwelling urinary catheter type: unspecified Reason for Consult: uti Consulted by: Dr. العلي History of Present Illness: The patient is a 75 year old F with suprapubic cath, recurrent uti, CKD, presented 11/27 with acute onset hematuria, confusion. On zosyn currently, feeling much better. No fever, no abd pain. Full ROS performed and neg except as noted above. - Medical History Past Medical History (Chronic Problems): Chronic Problems (Last Reviewed 11/28/20 @ 07:[address] Kyree Dutta MD) Wheelchair dependence (Chronic) Anemia (Chronic) Pressure ulcer of left thigh (Chronic) [id number] kidney injury (Chronic) History of atrial fibrillation (Chronic) Ulcer of abdomen wall with fat layer exposed (Chronic) Ulcer of left groin with fat layer exposed (Chronic) Pressure ulcer of coccygeal region, stage 3 (Chronic) Morbid obesity (Chronic) Anxiety and depression (Chronic) HLD (hyperlipidemia) (Chronic) Debility (Chronic) Depression (Chronic) VITA (obstructive sleep apnea) (Chronic) Candidal intertrigo (Chronic) Allergies/Adverse Reactions: Allergies adhesive tape Allergy (Verified 11/27/20 17:20) blisters Influenza Virus Vaccines Allergy (Verified 11/27/20 17:20) shortness of breath/severe wheezing iron Allergy (Verified 11/27/20 17:20) from IV form chest pressure and heart palpitations Sulfa (Sulfonamide Antibiotics) Allergy (Verified 11/27/20 17:20) Shortness of breath bactrim does not work for her-per pcp paperwork meloxicam [From Mobic] Adverse Reaction (Verified 11/27/20 17:20) gi upset seasonal allergies Allergy (Uncoded 11/27/20 17:20) Other Home Medications: Ambulatory Orders Medication Instructions Recorded Furosemide [Lasix] 20 mg PO BID 09/30/13 Albuterol Inhaler [Ventolin Hfa] 2 puff INHALATION Q4H PRN PRN 10/30/18 Gabapentin [Neurontin] 600 mg PO BID 10/30/18 Oxybutynin Chloride [Ditropan Xl] 15 mg PO DAILY 10/30/18 Pravastatin [Pravachol] 20 mg PO QHS 12/17/18 Duloxetine HCl 60 mg PO DINNER 03/22/19 Venlafaxine XR [Effexor Xr] 150 mg PO BID 07/02/19 Potassium Chloride [K-Dur] 10 meq PO DAILYCM 08/18/19 Baclofen 20 mg PO DINNER 03/20/20 Baclofen [Lioresal] 10 mg PO DAILY 03/20/20 Aspirin [Aspirin, Baby] 81 mg PO DAILY #0 MDD heart health 08/13/20 Methenamine Hippurate [Hiprex] 1 gm PO BID #0 08/13/20 Famotidine 20 mg PO QHS 10/15/20 Lisinopril [Zestril] 10 mg PO DAILY 10/15/20 Metformin HCl 500 mg PO BID 10/15/20 metoprolol tartrate 25 mg tablet 25 mg PO BID #180 tab 10/19/20 Cefdinir 300 mg PO BID 11/28/20 Levofloxacin [Levaquin] 250 mg PO DAILY 11/28/20 - Social History Tobacco Use: non-smoker Vital Signs Temp Pulse Resp BP Pulse Ox 98.9 F 100 18 128/60 H 97 11/30/20 14:46 11/30/20 14:46 11/30/20 14:46 11/30/20 14:46 11/30/20 14:46 Oxygen Flow Rate (L/min) 2 Oxygen Delivery Method Nasal Cannula Weight: 134.9 kg Body Mass Index (BMI) 46.5 Finger Stick Blood Glucose 150 Microbiology Past 72 Hours 11/27/20 17:45 Urine Culture - Preliminary Urine Catheter - Catheter Pseudomonas aeroginosa Gram negative odin Gram positive organism Laboratory Tests Past 24 Hrs 11/27/20 11/28/20 11/29/20 17:45 05:41 15:46 WBC RBC Hgb Hct MCV MCH MCHC RDW Std Deviation RDW Coeff of Jessi Plt Count MPV Immature Gran % (Auto) Neut % (Auto) Lymph % (Auto) [place] % (Auto) Eos % (Auto) Baso % (Auto) Absolute Neuts (auto) Absolute Lymphs (auto) Nucleated RBC % Sodium Potassium Chloride Carbon Dioxide Anion Gap BUN Creatinine Estim Creat Clear Calc Est GFR (MDRD) Af Amer Est GFR (MDRD) Non-Af BUN/Creatinine Ratio Glucose Calcium Iron TIBC Iron Saturation Ferritin Vitamin B12 582 Folate Urine Color Red Urine Clarity Turbid Urine pH 6.5 Ur Specific [place] 1.020 Urine Protein 500 H Urine Glucose (UA) Normal Urine Ketones 15 H Urine Occult Blood 250 H Urine Nitrite Negative Urine Bilirubin Negative Urine Urobilinogen Normal Ur Leukocyte Esterase 25 H Urine RBC > 100 SEEN Urine WBC >100 SEEN Ur Squamous Epith Cells 0 SEEN Urine Bacteria 0 SEEN Urine Mucus 0 SEEN Blood Type A POSITIVE Antibody Screen NEGATIVE Crossmatch See Detail 11/29/20 11/30/20 11/30/20 15:46 06:28 06:28 WBC 4.3 L RBC 2.98 L Hgb 7.9 L Hct 26.6 L MCV 89.3 MCH 26.5 L MCHC 29.7 L RDW Std Deviation 64.2 H RDW Coeff of Jessi 19.7 H Plt Count 358 MPV 9.0 Immature Gran % (Auto) 1.900 H Neut % (Auto) 57.5 Lymph % (Auto) 23.2 [place] % (Auto) 12.2 H Eos % (Auto) 4.0 Baso % (Auto) 1.2 H Absolute Neuts (auto) 2.5 Absolute Lymphs (auto) 0.99 Nucleated RBC % 0 Sodium 132 L Potassium 4.1 Chloride 102 Carbon Dioxide 24.0 Anion Gap 6 BUN 24 H Creatinine 1.57 H Estim Creat Clear Calc 30.57 Est GFR (MDRD) Af Amer 41 L Est GFR (MDRD) Non-Af 34 L BUN/Creatinine Ratio 15.3 Glucose 85 Calcium 8.1 L Iron 27 L TIBC 110 L Iron Saturation 24.5 Ferritin 62 Vitamin B12 Folate 14.00 Urine Color Urine Clarity Urine pH Ur Specific [place] Urine Protein Urine Glucose (UA) Urine Ketones Urine Occult Blood Urine Nitrite Urine Bilirubin Urine Urobilinogen Ur Leukocyte Esterase Urine RBC Urine WBC Ur Squamous Epith Cells Urine Bacteria Urine Mucus Blood Type Antibody Screen Crossmatch - Other Studies Radiology: [] reviewed Other Studies: [] Route of nutrition/ use of supplements: [] Nutritional Intake: [] IV Site: [] Henry Catheter: [] - Physical Exam General: Alert, Oriented x3, Cooperative, No apparent distress HEENT: Atraumatic, PERRLA, EOMI Neck: Supple, No Nodes Lungs: Clear to auscultation, Normal air movement Cardiovascular: Regular rate, Regular Rhythm Abdomen: Soft, Non Tender, Non-Distended Extremities: Edema Skin: No rashes IV Site: Peripheral, without redness Musculoskeletal: No Tenderness to Palpation of Joints or Extremities Neurological: Cranial nerves II-XII grossly intact - Assessment/Plan Antibiotics: [] Assessment/Plan: [] Active and Suspected Problems (Last Reviewed 11/28/20 @ 07:[address] 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 Recent cx with steno, so will add levaquin. Will follow, thank you, d/w Dr. العلي
--- NOTE | 2020-11-30 16:21 | PCM.PN.HOSP ---
Patient Problems: Active and Suspected Problems (Last Reviewed 11/28/20 @ 07:[address] Kyree Dutta MD) UTI (urinary tract infection) (Acute) Encephalopathy (Acute) UTI (urinary tract infection) due to urinary indwelling catheter (Acute) Chronic gram negative bacteria MICHAELLE (acute kidney injury) (Acute) Reason for Visit: Follow-up for anemia, hemorrhagic cystitis. Objective: Seen and examined. Patient urine is much clear. Heart rate and blood pressure are normal. On 2 L of oxygen. Physical exam General: Alert, awake and oriented x3. HEENT: Atraumatic, PERRLA, EOMI, Normocephalic Oral: No Gingival or Mucosal Lesions/ Ulcerations Neck: Supple, No JVD, Negative Carotid Bruits Lungs: Air entry diminished in bilateral lung bases. No crepitation/rhonchi Cardiovascular: Regular rate, Regular Rhythm, Normal S1, Normal S2, No murmurs Abdomen: Bowel Sounds Present, Soft, Non Tender, Non-Distended : Urine is clear and suprapubic catheter. Mild turbid. No renal angle or suprapubic tenderness. Extremities: No ankle edema, Capillary Refill Less than 3 Seconds Skin: No rashes, No breakdown Musculoskeletal: No Tenderness to Palpation of Joints or Extremities. Mild loss of extremity muscles, atrophy Neurological: Cranial nerves II-XII grossly intact, Deep Tendon Reflexes 2+/4 and Symmetrical, Neuro grossly intact Psych/Mental Status: Normal affect. Vitals/I&O's: Vital Signs Temp Pulse Resp BP Pulse Ox 98.9 F 100 18 128/60 H 97 11/30/20 14:46 11/30/20 14:46 11/30/20 14:46 11/30/20 14:46 11/30/20 14:46 Oxygen Flow Rate (L/min) 2 Oxygen Delivery Method Nasal Cannula Weight: 297 lb 6.457 oz Body Mass Index (BMI) 46.5 Finger Stick Blood Glucose 150 Intake and Output for Last 24 Hours 11/28/20 11/29/20 11/30/20 23:59 23:59 23:59 Intake Total 2815.00 / 2815.00 4193.34 / 5293.34 2350 / 2350 Output Total 2925 / 2925 2400 / 3700 4750 / 4750 Balance -110.00 / -110.00 1793.34 / 1593.34 -2400 / -2400 Microbiology Past 72 Hours 11/27/20 17:45 Urine Catheter - Catheter Urine Culture - Preliminary Pseudomonas aeroginosa Gram negative odin Gram positive organism Laboratory Results 11/27/20 17:45: Urine Color Red, Urine Clarity Turbid, Urine pH 6.5, Ur Specific [place] 1.020, Urine Protein 500 H, Urine Glucose (UA) Normal, Urine Ketones 15 H, Urine Occult Blood 250 H, Urine Nitrite Negative, Urine Bilirubin Negative, Urine Urobilinogen Normal, Ur Leukocyte Esterase 25 H, Urine RBC > 100 SEEN, Urine WBC >100 SEEN, Ur Squamous Epith Cells 0 SEEN, Urine Bacteria 0 SEEN, Urine Mucus 0 SEEN 11/28/20 05:41: Vitamin B12 582 11/29/20 15:46: Blood Type A POSITIVE, Antibody Screen NEGATIVE, Crossmatch See Detail 11/29/20 15:46: Iron 27 L, TIBC 110 L, Iron Saturation 24.5, Ferritin 62, Folate 14.00 11/29/20 23:23: POC Glucose 102 11/30/20 06:28: WBC 4.3 L, RBC 2.98 L, Hgb 7.9 L, Hct 26.6 L, MCV 89.3, MCH 26.5 L, MCHC 29.7 L, RDW Std Deviation 64.2 H, RDW Coeff of Jessi 19.7 H, Plt Count 358, MPV 9.0, Immature Gran % (Auto) 1.900 H, Neut % (Auto) 57.5, Lymph % (Auto) 23.2, Tompkins % (Auto) 12.2 H, Eos % (Auto) 4.0, Baso % (Auto) 1.2 H, Absolute Neuts (auto) 2.5, Absolute Lymphs (auto) 0.99, Nucleated RBC % 0 11/30/20 06:28: Sodium 132 L, Potassium 4.1, Chloride 102, Carbon Dioxide 24.0, Anion Gap 6, BUN 24 H, Creatinine 1.57 H, Estim Creat Clear Calc 30.57, Est GFR (MDRD) Af Amer 41 L, Est GFR (MDRD) Non-Af 34 L, BUN/Creatinine Ratio 15.3, Glucose 85, Calcium 8.1 L 11/30/20 06:29: POC Glucose 96 11/30/20 11:31: POC Glucose 135 H Current Medications Acetaminophen (Acetaminophen 325 Mg Tablet) 650 mg PO Q6H PRN PRN PRN Reason: Pain Score 1-10/Temp > 100.7 F Last Admin: 11/29/20 23:25 Dose: 650 mg Documented by: Albuterol Sulfate (Albuterol 2.5 Mg/3 Ml Vial.Neb.) 2.5 mg INHALATION Q4H PRN PRN PRN Reason: SOB &/OR WHEEZING Baclofen (Baclofen 10 Mg Tablet) 10 mg PO DAILY [facility] Baclofen (Baclofen 10 Mg Tablet) 20 mg PO DINNER [facility] Calamine/Phenol (Menthol/Lanolin/Calamine/Znox 113 Gm Tube) 1 applic TOPICAL TID [facility]; Protocol Last Admin: 11/30/20 14:57 Dose: 1 applicatio Documented by: Dextrose (Dextrose 50%-Water 25 Gm/50 Ml Disp.Syrin) 0 gm IV X1 PRN; Protocol PRN Reason: Hypoglycemia Duloxetine HCl (Duloxetine Hcl 60 Mg Capsule) 60 mg PO DINNER [facility] Famotidine (Famotidine 20 Mg Tablet) 20 mg PO QHS [facility] Furosemide (Furosemide 40 Mg Tablet) 40 mg PO DAILY [facility] Gabapentin (Gabapentin 600 Mg Tablet) 600 mg PO BID [facility] Glucagon (Glucagon 1 Mg/Ml Syringe) 1 mg IM .X1 PRN PRN Reason: Hypoglycemia Sodium Chloride () 250 mls @ 15 mls/hr IV .[id number] PRN PRN Reason: Saline Flush Sodium Chloride () 250 mls @ 15 mls/hr IV .[id number] PRN PRN Reason: Additional IVPB Infusion Sodium Chloride () 1,000 mls @ 100 mls/hr IV .Q10H [facility] Last Admin: 11/30/20 05:11 Dose: 100 mls/hr Documented by: Piperacillin Sod/Tazobactam (Sod 3.375 gm/ Sodium Chloride) 50 mls @ 12.5 mls/hr IV Q8 [facility] Last Admin: 11/30/20 14:56 Dose: 12.5 mls/hr Documented by: Insulin Human Lispro (Insulin Lispro 100 Unit/Ml Insuln.Pen) 0 unit SC ACHS [facility]; Protocol Last Admin: 11/30/20 11:37 Dose: Not Given Documented by: L-Arginine/L-Glutamine/Calcium HMB (John (Unflavored) Packet) 1 packet PO BIDCM [facility] Last Admin: 11/30/20 09:49 Dose: 1 packet Documented by: Levofloxacin (Levofloxacin 250 Mg Tablet) 250 mg PO DAILY@0600 [facility] Melatonin (Melatonin 3 Mg Tablet) 3 mg PO QHS PRN PRN PRN Reason: INSOMNIA Last Admin: 11/30/20 02:00 Dose: 3 mg Documented by: Metoprolol Tartrate (Metoprolol Tartrate 25 Mg Tablet) 25 mg PO BID [facility] Nystatin (Nystatin Ointment) 1 applic TOPICAL TID [facility]; Protocol Last Admin: 11/30/20 14:58 Dose: 1 applicatio Documented by: Ondansetron HCl (Ondansetron 4 Mg/2 Ml Vial) 4 mg IV Q8H PRN PRN PRN Reason: NAUSEA/VOMITING Last Admin: 11/28/20 15:05 Dose: 4 mg Documented by: Potassium Chloride (Potassium Chloride 10 Meq Tablet) 10 meq PO DAILYCM [facility] Pravastatin Sodium (Pravastatin 20 Mg Tablet) 20 mg PO QHS [facility] Senna/Docusate Sodium (Senna/Docusate Sodium 1 Tablet) 2 tablet PO BID PRN PRN PRN Reason: Constipation Sodium Chloride (0.9% Saline Lock 10 Ml Syringe) 10 - 40 ml IV UD PRN PRN Reason: SALINE FLUSH Last Admin: 11/28/20 15:05 Dose: 10 ml Documented by: Sodium Chloride (0.9% Saline Lock 10 Ml Syringe) 10 - 40 ml IV UD PRN PRN Reason: SALINE FLUSH Tolterodine Tartrate (Tolterodine Tartrate 4 Mg Cap.Sa) 4 mg PO DAILY [facility] Venlafaxine HCl (Venlafaxine Xr 150 Mg Capsule) 150 mg PO BID [facility] STROKE Vital Signs/Narrative: Vital Signs Temp Pulse Resp BP Pulse Ox 11/30/20 14:46 98.9 F 100 18 128/60 H 97 Medical Necessity - Tobacco Use Smoking Status: Never smoker Assessment/Plan All Active Problems (Last Reviewed 11/28/20 @ 07:[address] Kyree Dutta MD) UTI (urinary tract infection) (Acute) Encephalopathy (Acute) UTI (urinary tract infection) due to urinary indwelling catheter (Acute) MICHAELLE (acute kidney injury) (Acute) Suprapubic catheter dysfunction (Resolved) The patient is a 75 year old F with a significant history of diabetes; hypertension; atrial fibrillation; morbid obesity; obstructive sleep apnea; pressure ulcer of coccygeal area; chronic suprapubic Henry catheter was admitted from ER with confusion, hematuria, UA suggestive of UTI. 1. Acute encephalopathy most probably metabolic, possible infectious; multifactorial with gram-negative odin UTI: Patient has history of hemorrhagic cystitis. UA shows more than 100 RBC, and WBC. Negative nitrite. Negative LE. Urine bacteria and mucus. Protein 500. Ketones 15.Urine culture shows more than 100,000 colonies of gram-negative odin. urine culture on 11/05/2020 that showed Morganella morganii; Stenotrophomonas maltophilia; gram-negative rods. Urine culture on 09/15/2020 was positive for E. coli; Acinetobacter baumannii; myroides spp. Patient was on IV cefepime Ammonia 23, TSH 1.38. 11/29: Preliminary urine culture shows Pseudomonas more than 100,000 colonies, organism identification from previous yesterday. I will change the antibiotic to Zosyn. 11/30: Urine culture identification again changed today. Reported Pseudomonas aeruginosa, gram-negative odin and gram-positive organism. Discussed with ID and consulted. He added Levaquin. 2. Acute on chronic anemia may be from infection/hemorrhagic cystitis: Decrease in the hemoglobin from 7.9-7.22. Patient hemoglobin has been low between 6.5-8.3 in October 2020. MCV 90, low MCH. Leukopenia 3.8 thousand. 1 unit of PRBC transfusion ordered with group and crossmatch. Anemia work-up including reticulocyte panel, haptoglobin, iron studies ordered. 11/30: Patient had 1 unit of PRBC. Repeat hemoglobin 7.9 g%. Anemia work-up urinalysis to anemia of chronic disease. Iron saturation 24%. Ferritin 62. The patient is allergic to iron supplement therefore iron not ordered Acute hemorrhagic cystitis: Patient has suprapubic catheter. Urologist Dr. Andrews was consulted but he is out of town on weekend. 11/30: I talked to urologist Dr. Andrews on phone and he will not be available today but he will come tomorrow. 3. Acute kidney injury most probably secondary to dehydration/possible ATN from infection: Baseline creatinine around 1.5-1.6. On presentation creatinine was 2.17. IV fluid. Serial BUN/creatinine shows mild improvement. 1/18: BUN 24. Creatinine 1.57. Creatinine is improved. Patient also on Lasix 20 mg p.o. twice daily at home. It is more edematous as Lasix was held. Lasix 40 mg IV 1 dose and then 40 mg daily oral from tomorrow a.m. At home, patient is on Lasix 20 mg twice daily. 4. Cutaneous candidiasis Nystatin powder 5. Stage III pressure ulcer Calmoseptine cream Wound care consult. 6. DVT Prophylaxis SCD Avoid chemical thrombolysis secondary to hematuria. Microbiology Past 72 Hours 11/27/20 17:45 Urine Catheter - Catheter Urine Culture - Preliminary Pseudomonas aeroginosa Gram negative odin Gram positive organism Laboratory Results 11/27/20 17:45: Urine Color Red, Urine Clarity Turbid, Urine pH 6.5, Ur Specific [place] 1.020, Urine Protein 500 H, Urine Glucose (UA) Normal, Urine Ketones 15 H, Urine Occult Blood 250 H, Urine Nitrite Negative, Urine Bilirubin Negative, Urine Urobilinogen Normal, Ur Leukocyte Esterase 25 H, Urine RBC > 100 SEEN, Urine WBC >100 SEEN, Ur Squamous Epith Cells 0 SEEN, Urine Bacteria 0 SEEN, Urine Mucus 0 SEEN 11/28/20 05:41: Vitamin B12 582 11/29/20 15:46: Blood Type A POSITIVE, Antibody Screen NEGATIVE, Crossmatch See Detail 11/29/20 15:46: Iron 27 L, TIBC 110 L, Iron Saturation 24.5, Ferritin 62, Folate 14.00 11/29/20 23:23: POC Glucose 102 11/30/20 06:28: WBC 4.3 L, RBC 2.98 L, Hgb 7.9 L, Hct 26.6 L, MCV 89.3, MCH 26.5 L, MCHC 29.7 L, RDW Std Deviation 64.2 H, RDW Coeff of Jessi 19.7 H, Plt Count 358, MPV 9.0, Immature Gran % (Auto) 1.900 H, Neut % (Auto) 57.5, Lymph % (Auto) 23.2, [place] % (Auto) 12.2 H, Eos % (Auto) 4.0, Baso % (Auto) 1.2 H, Absolute Neuts (auto) 2.5, Absolute Lymphs (auto) 0.99, Nucleated RBC % 0 11/30/20 06:28: Sodium 132 L, Potassium 4.1, Chloride 102, Carbon Dioxide 24.0, Anion Gap 6, BUN 24 H, Creatinine 1.57 H, Estim Creat Clear Calc 30.57, Est GFR (MDRD) Af Amer 41 L, Est GFR (MDRD) Non-Af 34 L, BUN/Creatinine Ratio 15.3, Glucose 85, Calcium 8.1 L 11/30/20 06:29: POC Glucose 96 11/30/20 11:31: POC Glucose 135 H Inpatient E&M: 77825 Subs Hosp L2
[2020-11-30] MEDS: Tolterodine Tartrate 4 MG CAP.SA PO (17:25)
[2020-11-30] MEDS: DULoxetine Hcl 60 MG Capsule PO (17:26)
[2020-11-30] MEDS: Baclofen 10 MG Tablet 20 MG PO (17:27)
[2020-11-30 21:23] VITALS: BP 123/69; PULSE 92; RESP 18; TEMP 37.4; O2SAT 99
[2020-11-30 21:32] VITALS: BP 123/69; PULSE 92
[2020-11-30] MEDS: Famotidine 20 MG Tablet PO (21:32)
[2020-11-30] MEDS: Pravastatin 20 MG Tablet PO (21:32)
[2020-11-30] MEDS: Gabapentin 600 MG Tablet PO (21:32)
[2020-11-30] MEDS: Venlafaxine XR 150 MG Capsule PO (21:32)
[2020-11-30] MEDS: Metoprolol Tartrate 25 MG Tablet PO (21:32)
[2020-11-30 21:46] LABS: Bedside Glucose 122 mg/dL (70-110)
[2020-12-01 00:16] LABS: Bedside Glucose 111 mg/dL (70-110)
[2020-12-01] MEDS: Acetaminophen 325 MG Tablet 650 MG PO (01:15)
[2020-12-01 04:06] VITALS: BP 105/56; PULSE 56; RESP 18; TEMP 37.3; O2SAT 100
[2020-12-01] MEDS: levoFLOXacin 250 MG Tablet PO (06:12)
[2020-12-01] MEDS: Menthol/Lanolin/Calamine/Znox 113 GM Tube 1 APPLIC TOPICAL ×3 (06:12→21:54)
[2020-12-01] MEDS: Nystatin Ointment 1 APPLIC TOPICAL ×2 (06:13→15:00)
[2020-12-01 06:36] LABS: Bedside Glucose 109 mg/dL (70-110)
[2020-12-01 07:09] LABS: Absolute Lymphocyte Count 0.93 X10^3/uL (0.83-4.51); Absolute Neutrophil Count 2.5 X10^3/uL (2.0-7.7); Basophil# 0.04 X10^3/uL; Basophil% 0.9 % (0-1); Eosinophil# 0.32 X10^3/uL; Eosinophils% 7.2 % (0-5); Hematocrit 28.8 % (37-47); Hemoglobin 8.6 g/dL (12.0-15.0); Lymphocyte # 0.93 X10^3/ul (4.0); Lymphocyte % 20.8 % (19-41); Mean Corp Hgb Conc 29.9 g/dL (32-36); Mean Corpuscular Hgb 26.8 pg (27.0-32.0); Mean Corpuscular Volume 89.7 fL (81-99); Mean Platelet Vol. 8.6 fl (6.2-12.0); Monocyte# 0.63 X10^3/uL; Monocyte% 14.1 % (0-10); NRBC Flagged by Analyzer 0 % (0-5); Neutrophil # 2.45 X10^3/uL (2.7-7.7); Neutrophil % 54.8 % (47-70); Platelet Count 345 K/mm3 (150-450); RBC Distribution Width CV 19.8 % (11.6-14.6); RBC Distribution Width SD 64.2 fl (35.1-43.9); Red Blood Count 3.21 M/mm3 (4.2-5.4); White Blood Count 4.5 K/mm3 (4.4-11.0)
[2020-12-01 07:19] LABS: Anion Gap 6 (5-15); BUN 30 mg/dL (7-18); BUN/Creat Ratio 16.7 RATIO (10-20); Calcium,Total 8.1 mg/dL (8.5-10.1); Chloride 102 mmol/L (98-107); EST Glomerular Filtration Rate 29 mL/min (>60); Est Glom Filt Rate - Afr Amer 35 mL/min (>60); Estimated Creatinine Clearance 26.66 ml/min; Glucose 89 mg/dL (74-106); Potassium 3.6 mmol/L (3.5-5.1); Sodium Level 134 mmol/L (136-145)
[2020-12-01] MEDS: Juven (unflavored) Packet 1 PACKET PO ×2 (08:54→16:55)
[2020-12-01 09:00] VITALS: BP 133/64; PULSE 85; RESP 18; TEMP 36.9; O2SAT 95
--- NOTE | 2020-12-01 10:38 | PN_ITS ---
Patient Problems: Active and Suspected Problems (Last Reviewed 11/28/20 @ 07:[address] 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 Asking about going to TCU from here when she is medically ready. Vitals/I&O's: Vital Signs Temp Pulse Resp BP Pulse Ox 36.9 C 85 18 133/64 H 95 12/01/20 09:00 12/01/20 09:00 12/01/20 09:00 12/01/20 09:00 12/01/20 09:00 Oxygen Flow Rate (L/min) 2 Oxygen Delivery Method Nasal Cannula Weight: 134.9 kg Body Mass Index (BMI) 46.5 Finger Stick Blood Glucose 150 Intake and Output for Last 24 Hours 11/29/20 11/30/20 12/01/20 23:59 23:59 23:59 Intake Total 4193.34 / 5293.34 4900 / 4900 850 / 850 Output Total 2400 / 3700 9200 / 9200 1075 / 1075 Balance 1793.34 / 1593.34 -4300 / -4300 -225 / -225 General: Alert, No apparent distress HEENT: Atraumatic, Normocephalic Oral: Moist Mucosa, No Gingival or Mucosal Lesions/ Ulcerations Neck: No Nodes, Thyroid Normal Size and Texture Lungs: Clear to auscultation, Normal air movement, No rhonchi, No wheeze Cardiovascular: Regular rate, Regular Rhythm, Normal S1, Normal S2, No murmurs Abdomen: Bowel Sounds Present, Soft, Non Tender, Non-Distended Extremities: - - plantar contractures bilaterally. Skin: No rashes, No breakdown Psych/Mental Status: Normal Affect, Appropriate Microbiology Past 72 Hours 11/27/20 17:45 Urine Catheter - Catheter Urine Culture - Preliminary Pseudomonas spp Gram negative odin Laboratory Results 11/30/20 11:31: POC Glucose 135 H 11/30/20 17:16: POC Glucose 111 H 11/30/20 21:37: POC Glucose 122 H 12/01/20 06:32: POC Glucose 109 12/01/20 06:45: WBC 4.5, RBC 3.21 L, Hgb 8.6 L, Hct 28.8 L, MCV 89.7, MCH 26.8 L , MCHC 29.9 L, RDW Std Deviation 64.2 H, RDW Coeff of Jessi 19.8 H, Plt Count 345, MPV 8.6, Immature Gran % (Auto) 2.200 H, Neut % (Auto) 54.8, Lymph % (Auto) 20.8, [place] % (Auto) 14.1 H, Eos % (Auto) 7.2 H, Baso % (Auto) 0.9, Absolute Neuts (auto) 2.5, Absolute Lymphs (auto) 0.93, Nucleated RBC % 0 12/01/20 06:45: Sodium 134 L, Potassium 3.6, Chloride 102, Carbon Dioxide 26.0, Anion Gap 6, BUN 30 H, Creatinine 1.80 H, Estim Creat Clear Calc 26.66, Est GFR (MDRD) Af Amer 35 L, Est GFR (MDRD) Non-Af 29 L, BUN/Creatinine Ratio 16.7, Glucose 89, Calcium 8.1 L Current Medications Acetaminophen (Acetaminophen 325 Mg Tablet) 650 mg PO Q6H PRN PRN PRN Reason: Pain Score 1-10/Temp > 100.7 F Last Admin: 12/01/20 01:15 Dose: 650 mg Documented by: Albuterol Sulfate (Albuterol 2.5 Mg/3 Ml Vial.Neb.) 2.5 mg INHALATION Q4H PRN PRN PRN Reason: SOB &/OR WHEEZING Baclofen (Baclofen 10 Mg Tablet) 10 mg PO DAILY [facility] Baclofen (Baclofen 10 Mg Tablet) 20 mg PO DINNER [facility] Last Admin: 11/30/20 17:27 Dose: 20 mg Documented by: Calamine/Phenol (Menthol/Lanolin/Calamine/Znox 113 Gm Tube) 1 applic TOPICAL TID [facility]; Protocol Last Admin: 12/01/20 06:12 Dose: 1 applicatio Documented by: Dextrose (Dextrose 50%-Water 25 Gm/50 Ml Disp.Syrin) 0 gm IV X1 PRN; Protocol PRN Reason: Hypoglycemia Duloxetine HCl (Duloxetine Hcl 60 Mg Capsule) 60 mg PO DINNER [facility] Last Admin: 11/30/20 17:26 Dose: 60 mg Documented by: Famotidine (Famotidine 20 Mg Tablet) 20 mg PO QHS [facility] Last Admin: 11/30/20 21:32 Dose: 20 mg Documented by: Furosemide (Furosemide 40 Mg Tablet) 40 mg PO DAILY [facility] Gabapentin (Gabapentin 600 Mg Tablet) 600 mg PO BID [facility] Last Admin: 11/30/20 21:32 Dose: 600 mg Documented by: Glucagon (Glucagon 1 Mg/Ml Syringe) 1 mg IM .X1 PRN PRN Reason: Hypoglycemia Sodium Chloride () 250 mls @ 15 mls/hr IV .[id number] PRN PRN Reason: Saline Flush Sodium Chloride () 250 mls @ 15 mls/hr IV .[id number] PRN PRN Reason: Additional IVPB Infusion Sodium Chloride () 1,000 mls @ 100 mls/hr IV .Q10H [facility] Last Admin: 11/30/20 21:32 Dose: Not Given Documented by: Piperacillin Sod/Tazobactam (Sod 3.375 gm/ Sodium Chloride) 50 mls @ 12.5 mls/hr IV Q8 [facility] Last Admin: 12/01/20 06:30 Dose: 12.5 mls/hr Documented by: Insulin Human Lispro (Insulin Lispro 100 Unit/Ml Insuln.Pen) 0 unit SC ACHS [facility]; Protocol Last Admin: 12/01/20 06:33 Dose: Not Given Documented by: L-Arginine/L-Glutamine/Calcium HMB (John (Unflavored) Packet) [facility] Last Admin: 12/01/20 08:54 Dose: 1 packet Documented by: Levofloxacin (Levofloxacin 250 Mg Tablet) 250 mg PO DAILY@0600 [facility] Last Admin: 12/01/20 06:12 Dose: 250 mg Documented by: Melatonin (Melatonin 3 Mg Tablet) 3 mg PO QHS PRN PRN PRN Reason: INSOMNIA Last Admin: 11/30/20 02:00 Dose: 3 mg Documented by: Metoprolol Tartrate (Metoprolol Tartrate 25 Mg Tablet) 25 mg PO BID [facility] Last Admin: 11/30/20 21:32 Dose: 25 mg Documented by: Nystatin (Nystatin Ointment) 1 applic TOPICAL TID [facility]; Protocol Last Admin: 12/01/20 06:13 Dose: 1 applicatio Documented by: Ondansetron HCl (Ondansetron 4 Mg/2 Ml Vial) 4 mg IV Q8H PRN PRN PRN Reason: NAUSEA/VOMITING Last Admin: 11/28/20 15:05 Dose: 4 mg Documented by: Potassium Chloride (Potassium Chloride 10 Meq Tablet) [facility] Last Admin: 12/01/20 08:54 Dose: 10 meq Documented by: Pravastatin Sodium (Pravastatin 20 Mg Tablet) 20 mg PO QHS [facility] Last Admin: 11/30/20 21:32 Dose: 20 mg Documented by: Senna/Docusate Sodium (Senna/Docusate Sodium 1 Tablet) 2 tablet PO BID PRN PRN PRN Reason: Constipation Sodium Chloride (0.9% Saline Lock 10 Ml Syringe) 10 - 40 ml IV UD PRN PRN Reason: SALINE FLUSH Last Admin: 11/28/20 15:05 Dose: 10 ml Documented by: Sodium Chloride (0.9% Saline Lock 10 Ml Syringe) 10 - 40 ml IV UD PRN PRN Reason: SALINE FLUSH Tolterodine Tartrate (Tolterodine Tartrate 4 Mg Cap.Sa) 4 mg PO DAILY [facility] Last Admin: 11/30/20 17:25 Dose: 4 mg Documented by: Venlafaxine HCl (Venlafaxine Xr 150 Mg Capsule) 150 mg PO BID [facility] Last Admin: 11/30/20 21:32 Dose: 150 mg Documented by: STROKE Vital Signs/Narrative: Vital Signs Temp Pulse Resp BP Pulse Ox 12/01/20 09:00 36.9 C 85 18 133/64 H 95 Medical Necessity - Tobacco Use Smoking Status: Never smoker Assessment/Plan All Active Problems (Last Reviewed 11/28/20 @ 07:[address] Kyree Dutta MD) UTI (urinary tract infection) (Acute) Encephalopathy (Acute) UTI (urinary tract infection) due to urinary indwelling catheter (Acute) MICHAELLE (acute kidney injury) (Acute) Suprapubic catheter dysfunction (Resolved) 1. UTI: MDR Pseudomonas. On Pip/Tazo, change of aztreonam. GNR yet to be ID'd. Catheter-associated. 2. Debility: poor baseline performance status, though able to cook for her self. Wheelchair-bound. Pt interested in TCU. DW CM. 3. CKD 3-4: stable 4. Anemia: stable 5. Stage III sacral decubitus ulcer: continue wound care 6. Tianna interigo: stable. continue nystatin powder. DW pt, no need for systemic antifungals at this time. 7. VTE prophylaxis: SCDs. Inpatient E&M: [id number] Subs Hosp L2
[2020-12-01 10:40] VITALS: BP 133/64; PULSE 85
[2020-12-01] MEDS: Metoprolol Tartrate 25 MG Tablet PO ×2 (10:40→22:14)
[2020-12-01] MEDS: Baclofen 10 MG Tablet PO (10:40)
[2020-12-01] MEDS: Gabapentin 600 MG Tablet PO ×2 (10:41→22:15)
[2020-12-01] MEDS: Furosemide 40 MG Tablet PO (10:41)
[2020-12-01] MEDS: Venlafaxine XR 150 MG Capsule PO ×2 (10:41→22:15)
[2020-12-01] MEDS: Tolterodine Tartrate 4 MG CAP.SA PO (10:43)
[2020-12-01] MEDS: 0.9% Normal Saline 1,000 ML 100 ML IV ×2 (10:44→21:52)
--- NOTE | 2020-12-01 10:58 | PCM.PN.ID ---
Patient Problems: Active and Suspected Problems (Last Reviewed 11/28/20 @ 07:[address] Kyree Dutta MD) UTI (urinary tract infection) (Acute) Encephalopathy (Acute) UTI (urinary tract infection) due to urinary indwelling catheter (Acute) Chronic gram negative bacteria MICHAELLE (acute kidney injury) (Acute) Subjective: Feeling better, no fever, no abd pain - Physical Exam Vitals/I&O's: Vital Signs Temp Pulse Resp BP Pulse Ox 98.5 F 85 18 133/64 H 95 12/01/20 09:00 12/01/20 10:40 12/01/20 09:00 12/01/20 10:40 12/01/20 09:00 Oxygen Flow Rate (L/min) 2 Oxygen Delivery Method Nasal Cannula Weight: 134.9 kg Body Mass Index (BMI) 46.5 Finger Stick Blood Glucose 150 Intake and Output for Last 24 Hours 11/29/20 11/30/20 12/01/20 23:59 23:59 23:59 Intake Total 4193.34 / 5293.34 4900 / 4900 1850 / 1850 Output Total 2400 / 3700 9200 / 9200 1075 / 1075 Balance 1793.34 / 1593.34 -4300 / -4300 775 / 775 General: Alert, Cooperative, No apparent distress Lungs: Clear to auscultation, Normal air movement Cardiovascular: Regular rate, Regular Rhythm Abdomen: Soft, Non Tender, Non-Distended Skin: No rashes Microbiology Past 72 Hours 11/27/20 17:45 Urine Catheter - Catheter Urine Culture - Preliminary Pseudomonas spp Gram negative odin Laboratory Results 11/30/20 11:31: POC Glucose 135 H 11/30/20 17:16: POC Glucose 111 H 11/30/20 21:37: POC Glucose 122 H 12/01/20 06:32: POC Glucose 109 12/01/20 06:45: WBC 4.5, RBC 3.21 L, Hgb 8.6 L, Hct 28.8 L, MCV 89.7, MCH 26.8 L, MCHC 29.9 L, RDW Std Deviation 64.2 H, RDW Coeff of Jessi 19.8 H, Plt Count 345, MPV 8.6, Immature Gran % (Auto) 2.200 H, Neut % (Auto) 54.8, Lymph % (Auto) 20.8, [place] % (Auto) 14.1 H, Eos % (Auto) 7.2 H, Baso % (Auto) 0.9, Absolute Neuts (auto) 2.5, Absolute Lymphs (auto) 0.93, Nucleated RBC % 0 12/01/20 06:45: Sodium 134 L, Potassium 3.6, Chloride 102, Carbon Dioxide 26.0, Anion Gap 6, BUN 30 H, Creatinine 1.80 H, Estim Creat Clear Calc 26.66, Est GFR (MDRD) Af Amer 35 L, Est GFR (MDRD) Non-Af 29 L, BUN/Creatinine Ratio 16.7, Glucose 89, Calcium 8.1 L Current Medications Acetaminophen (Acetaminophen 325 Mg Tablet) 650 mg PO Q6H PRN PRN PRN Reason: Pain Score 1-10/Temp > 100.7 F Last Admin: 12/01/20 01:15 Dose: 650 mg Documented by: Albuterol Sulfate (Albuterol 2.5 Mg/3 Ml Vial.Neb.) 2.5 mg INHALATION Q4H PRN PRN PRN Reason: SOB &/OR WHEEZING Baclofen (Baclofen 10 Mg Tablet) 10 mg PO DAILY [facility] [place] Last Admin: 12/01/20 10:40 Dose: 10 mg Documented by: Baclofen (Baclofen 10 Mg Tablet) 20 mg PO DINNER [facility] Last Admin: 11/30/20 17:27 Dose: 20 mg Documented by: Calamine/Phenol (Menthol/Lanolin/Calamine/Znox 113 Gm Tube) 1 applic TOPICAL TID [facility]; Protocol Last Admin: 12/01/20 06:12 Dose: 1 applicatio Documented by: Dextrose (Dextrose 50%-Water 25 Gm/50 Ml Disp.Syrin) 0 gm IV X1 PRN; Protocol PRN Reason: Hypoglycemia Duloxetine HCl (Duloxetine Hcl 60 Mg Capsule) 60 mg PO DINNER [facility] [place] Last Admin: 11/30/20 17:26 Dose: 60 mg Documented by: Famotidine (Famotidine 20 Mg Tablet) 20 mg PO QHS [facility] [place] Last Admin: 11/30/20 21:32 Dose: 20 mg Documented by: Furosemide (Furosemide 40 Mg Tablet) 40 mg PO DAILY [facility] [place] Last Admin: 12/01/20 10:41 Dose: 40 mg Documented by: Gabapentin (Gabapentin 600 Mg Tablet) 600 mg PO BID [facility] [place] Last Admin: 12/01/20 10:41 Dose: 600 mg Documented by: Glucagon (Glucagon 1 Mg/Ml Syringe) 1 mg IM .X1 PRN PRN Reason: Hypoglycemia Sodium Chloride () 250 mls @ 15 mls/hr IV .[id number] PRN PRN Reason: Saline Flush Sodium Chloride () 250 mls @ 15 mls/hr IV .[id number] PRN PRN Reason: Additional IVPB Infusion Sodium Chloride () 1,000 mls @ 100 mls/hr IV .Q10H [facility] [place] Last Admin: 12/01/20 10:44 Dose: 100 mls/hr Documented by: Aztreonam 1 gm/ Sodium (Chloride) 100 mls @ 150 mls/hr IV Q8 [facility] Insulin Human Lispro (Insulin Lispro 100 Unit/Ml Insuln.Pen) 0 unit SC ACHS [facility] [place]; Protocol Last Admin: 12/01/20 06:33 Dose: Not Given Documented by: L-Arginine/L-Glutamine/Calcium HMB (John (Unflavored) Packet) [facility] Last Admin: 12/01/20 08:54 Dose: 1 packet Documented by: Levofloxacin (Levofloxacin 250 Mg Tablet) 250 mg PO DAILY@0600 [facility] [place] Last Admin: 12/01/20 06:12 Dose: 250 mg Documented by: Melatonin (Melatonin 3 Mg Tablet) 3 mg PO QHS PRN PRN PRN Reason: INSOMNIA Last Admin: 11/30/20 02:00 Dose: 3 mg Documented by: Metoprolol Tartrate (Metoprolol Tartrate 25 Mg Tablet) 25 mg PO BID [facility] [place] Last Admin: 12/01/20 10:40 Dose: 25 mg Documented by: Nystatin (Nystatin Ointment) 1 applic TOPICAL TID [facility] [place]; Protocol Last Admin: 12/01/20 06:13 Dose: 1 applicatio Documented by: Ondansetron HCl (Ondansetron 4 Mg/2 Ml Vial) 4 mg IV Q8H PRN PRN PRN Reason: NAUSEA/VOMITING Last Admin: 11/28/20 15:05 Dose: 4 mg Documented by: Potassium Chloride (Potassium Chloride 10 Meq Tablet) [facility] Last Admin: 12/01/20 08:54 Dose: 10 meq Documented by: Pravastatin Sodium (Pravastatin 20 Mg Tablet) 20 mg PO QHS [facility] [place] Last Admin: 11/30/20 21:32 Dose: 20 mg Documented by: Senna/Docusate Sodium (Senna/Docusate Sodium 1 Tablet) 2 tablet PO BID PRN PRN PRN Reason: Constipation Sodium Chloride (0.9% Saline Lock 10 Ml Syringe) 10 - 40 ml IV UD PRN PRN Reason: SALINE FLUSH Last Admin: 11/28/20 15:05 Dose: 10 ml Documented by: Sodium Chloride (0.9% Saline Lock 10 Ml Syringe) 10 - 40 ml IV UD PRN PRN Reason: SALINE FLUSH Tolterodine Tartrate (Tolterodine Tartrate 4 Mg Cap.Sa) 4 mg PO DAILY [facility] [place] Last Admin: 12/01/20 10:43 Dose: 4 mg Documented by: Venlafaxine HCl (Venlafaxine Xr 150 Mg Capsule) 150 mg PO BID [facility] [place] Last Admin: 12/01/20 10:41 Dose: 150 mg Documented by: Medical Necessity - Tobacco Use Smoking Status: Never smoker Route of nutrition/ use of supplements: [] Nutritional Intake: [] IV Site: [] Henry Catheter: [] - Assessment/Plan Antibiotics: [] Assessment/Plan: [] Active and Suspected Problems (Last Reviewed 11/28/20 @ 07:[address] 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 Recent cx with steno, so will add levaquin. Ucx now with pseudomonas, I to zosyn, and GNR. Given overall improvement, will cont zosyn and levaquin. Avoiding aminoglycosides if possible due to CKD and risk of nephrotoxicity. She is interested in rehab/ECF. Will follow
[2020-12-01 11:35] LABS: Bedside Glucose 98 mg/dL (70-110)
[2020-12-01 15:28] VITALS: BP 129/70; PULSE 86; RESP 18; TEMP 37.1; O2SAT 99
[2020-12-01 15:33] LABS: Haptoglobin 253 mg/dL (42-346)
--- NOTE | 2020-12-01 15:45 | CASEMGMT ---
TONI MARTINES in to discuss discharge planning with patient and sister. Patient states she would now like to go to TCU at discharge. TONI MARTINES explained not sure if there are beds available. Patient states that if there is no beds on TCU patient will go home with [facility]. TONI MARTINES updated ELIAS Acosta. TONI MARTINES confirmed that [facility] received referral and they are able to accept the patient.
--- NOTE | 2020-12-01 15:52 | CASEMGMT ---
Social Work Note SW received referral for [facility] TCU. SW placed a call to Karen in TCU, no beds available till next week. SW in to speak with pt. Pt's sister Esperanza present in room. SW introduced self and role at [facility]. SW updated pt that TCU has no beds available at this time. SW informed Esperanza that she can go to a different SNF. Pt denied. Pt states she will be returning home. Asya Acosta FINAL ASSEMBLER, EXTRACTION OPERATOR
[2020-12-01] MEDS: DULoxetine Hcl 60 MG Capsule PO (16:55)
[2020-12-01] MEDS: Baclofen 10 MG Tablet 20 MG PO (16:56)
[2020-12-01 17:26] LABS: Bedside Glucose 113 mg/dL (70-110)
[2020-12-01 20:23] VITALS: BP 134/66; PULSE 93; RESP 18; TEMP 37.3; O2SAT 95
[2020-12-01] MEDS: Nystatin Powder 15gm Bottle 1 APPLIC TOPICAL (21:54)
[2020-12-01 22:14] VITALS: BP 134/66; PULSE 93
[2020-12-01] MEDS: Famotidine 20 MG Tablet PO (22:14)
[2020-12-01] MEDS: Pravastatin 20 MG Tablet PO (22:14)
[2020-12-01 22:25] LABS: Bedside Glucose 105 mg/dL (70-110)
[2020-12-02] VITALS (7 sets, daily range): BP systolic 110–120; BP diastolic 50–65; PULSE 67–95; RESP 16–18; TEMP 36.3–36.9; O2SAT 94–99
[2020-12-02] MEDS: Nystatin Powder 15gm Bottle 1 APPLIC TOPICAL ×3 (06:20→20:58)
[2020-12-02] MEDS: levoFLOXacin 250 MG Tablet PO (06:21)
[2020-12-02] MEDS: Menthol/Lanolin/Calamine/Znox 113 GM Tube 1 APPLIC TOPICAL ×3 (06:21→20:57)
[2020-12-02 06:45] LABS: Bedside Glucose 106 mg/dL (70-110)
[2020-12-02 06:50] LABS: Absolute Lymphocyte Count 1.25 X10^3/uL (0.83-4.51); Absolute Neutrophil Count 2.5 X10^3/uL (2.0-7.7); Basophil# 0.04 X10^3/uL; Basophil% 0.8 % (0-1); Eosinophil# 0.36 X10^3/uL; Eosinophils% 7.2 % (0-5); Hematocrit 29.4 % (37-47); Hemoglobin 8.6 g/dL (12.0-15.0); Lymphocyte # 1.25 X10^3/ul (4.0); Mean Corp Hgb Conc 29.3 g/dL (32-36); Mean Corpuscular Hgb 26.9 pg (27.0-32.0); Mean Corpuscular Volume 91.9 fL (81-99); Mean Platelet Vol. 8.3 fl (6.2-12.0); Monocyte# 0.74 X10^3/uL; Monocyte% 14.8 % (0-10); NRBC Flagged by Analyzer 0 % (0-5); POSITIVE MORPHOLOGY YES; Platelet Count 305 K/mm3 (150-450); RBC Distribution Width CV 20.3 % (11.6-14.6); RBC Distribution Width SD 68.4 fl (35.1-43.9)
[2020-12-02 07:03] LABS: Differential Indicated SCAN CRITERIA MET
[2020-12-02 07:13] LABS: Anisocytosis 1+; Differential Comment SCANNED
[2020-12-02 07:14] LABS: Hypochromasia 1+; Macrocytosis RARE; Microcytosis RARE
[2020-12-02 07:17] LABS: Anion Gap 4 (5-15); BUN 31 mg/dL (7-18); BUN/Creat Ratio 18.7 RATIO (10-20); Calcium,Total 8.3 mg/dL (8.5-10.1); Chloride 106 mmol/L (98-107); Creatinine, Serum 1.66 mg/dL (0.55-1.02); EST Glomerular Filtration Rate 32 mL/min (>60); Est Glom Filt Rate - Afr Amer 39 mL/min (>60); Estimated Creatinine Clearance 28.91 ml/min; Glucose 98 mg/dL (74-106); Potassium 3.7 mmol/L (3.5-5.1); Sodium Level 137 mmol/L (136-145)
[2020-12-02] MEDS: 0.9% Normal Saline 1,000 ML 100 ML IV ×2 (09:51→20:58)
[2020-12-02] MEDS: Metoprolol Tartrate 25 MG Tablet PO ×2 (09:52→20:56)
[2020-12-02] MEDS: Tolterodine Tartrate 4 MG CAP.SA PO (09:52)
[2020-12-02] MEDS: Furosemide 40 MG Tablet PO (09:52)
[2020-12-02] MEDS: Venlafaxine XR 150 MG Capsule PO ×2 (09:52→20:56)
[2020-12-02] MEDS: Gabapentin 600 MG Tablet PO ×2 (09:52→20:56)
[2020-12-02] MEDS: Baclofen 10 MG Tablet PO (09:52)
[2020-12-02] MEDS: Juven (unflavored) Packet 1 PACKET PO ×2 (09:52→16:30)
--- NOTE | 2020-12-02 10:58 | PN_ITS ---
Patient Problems: Active and Suspected Problems (Last Reviewed 11/28/20 @ 07:[address] Kyree Dutta MD) UTI (urinary tract infection) (Acute) Encephalopathy (Acute) UTI (urinary tract infection) due to urinary indwelling catheter (Acute) Chronic gram negative bacteria MICHAELLE (acute kidney injury) (Acute) Reason for Visit: UTI Subjective: Now new complaints. Vitals/I&O's: Vital Signs Temp Pulse Resp BP Pulse Ox 36.6 C 67 18 110/62 97 12/02/20 09:50 12/02/20 09:52 12/02/20 09:50 12/02/20 09:50 12/02/20 09:50 Oxygen Flow Rate (L/min) 2 Oxygen Delivery Method Room Air Weight: 134.9 kg Body Mass Index (BMI) 46.5 Finger Stick Blood Glucose 150 Intake and Output for Last 24 Hours 11/30/20 12/01/20 12/02/20 23:59 23:59 23:59 Intake Total 4900 / 4900 3980 / 3980 1400 / 1400 Output Total 9200 / 9200 2675 / 2675 2850 / 2850 Balance -4300 / -4300 1305 / 1305 -1450 / -1450 General: Alert, No apparent distress HEENT: Atraumatic, Normocephalic Oral: Moist Mucosa, No Gingival or Mucosal Lesions/ Ulcerations Neck: No Nodes, Thyroid Normal Size and Texture Lungs: Clear to auscultation, Normal air movement, No rhonchi, No wheeze Cardiovascular: Regular rate, Regular Rhythm, Normal S1, Normal S2, No murmurs Abdomen: Bowel Sounds Present, Soft, Non Tender, Non-Distended, No Hepato- splenomegaly Extremities: No edema, No Calf Tenderness Skin: No rashes, No breakdown Musculoskeletal: No Tenderness to Palpation of Joints or Extremities, No Muscle Wasting Psych/Mental Status: Normal Affect, Appropriate Microbiology Past 72 Hours 11/27/20 17:45 Urine Catheter - Catheter Urine Culture - Preliminary Proteus mirabilis Pseudomonas aeroginosa Laboratory Results 11/29/20 15:46: Haptoglobin 253 12/01/20 11:31: POC Glucose 98 12/01/20 16:24: POC Glucose 113 H 12/01/20 22:11: POC Glucose 105 12/02/20 06:37: POC Glucose 106 12/02/20 06:44: WBC 5.0, RBC 3.20 L, Hgb 8.6 L, Hct 29.4 L, MCV 91.9, MCH 26.9 L , MCHC 29.3 L, RDW Std Deviation 68.4 H, RDW Coeff of Jessi 20.3 H, Plt Count 305, MPV 8.3, Immature Gran % (Auto) 2.200 H, Neut % (Auto) 50.0, Lymph % (Auto) 25.0, [place] % (Auto) 14.8 H, Eos % (Auto) 7.2 H, Baso % (Auto) 0.8, Absolute Neuts (auto) 2.5, Absolute Lymphs (auto) 1.25, Nucleated RBC % 0, Differential Comment SCANNED, Hypochromasia 1+, Anisocytosis 1+, Microcytosis RARE, Macrocytosis RARE 12/02/20 06:44: Sodium 137, Potassium 3.7, Chloride 106, Carbon Dioxide 27.0, Anion Gap 4 L, BUN 31 H, Creatinine 1.66 H, Estim Creat Clear Calc 28.91, Est GFR (MDRD) Af Amer 39 L, Est GFR (MDRD) Non-Af 32 L, BUN/Creatinine Ratio 18.7, Glucose 98, Calcium 8.3 L Current Medications Acetaminophen (Acetaminophen 325 Mg Tablet) 650 mg PO Q6H PRN PRN PRN Reason: Pain Score 1-10/Temp > 100.7 F Last Admin: 12/01/20 01:15 Dose: 650 mg Documented by: Albuterol Sulfate (Albuterol 2.5 Mg/3 Ml Vial.Neb.) 2.5 mg INHALATION Q4H PRN PRN PRN Reason: SOB &/OR WHEEZING Baclofen (Baclofen 10 Mg Tablet) 10 mg PO DAILY [facility] Last Admin: 12/02/20 09:52 Dose: 10 mg Documented by: Baclofen (Baclofen 10 Mg Tablet) 20 mg PO DINNER [facility] Last Admin: 12/01/20 16:56 Dose: 20 mg Documented by: Calamine/Phenol (Menthol/Lanolin/Calamine/Znox 113 Gm Tube) 1 applic TOPICAL TID [facility]; Protocol Last Admin: 12/02/20 06:21 Dose: 1 applicatio Documented by: Dextrose (Dextrose 50%-Water 25 Gm/50 Ml Disp.Syrin) 0 gm IV X1 PRN; Protocol PRN Reason: Hypoglycemia Duloxetine HCl (Duloxetine Hcl 60 Mg Capsule) 60 mg PO DINNER [facility] Last Admin: 12/01/20 16:55 Dose: 60 mg Documented by: Famotidine (Famotidine 20 Mg Tablet) 20 mg PO QHS [facility] Last Admin: 12/01/20 22:14 Dose: 20 mg Documented by: Furosemide (Furosemide 40 Mg Tablet) 40 mg PO DAILY [facility] Last Admin: 12/02/20 09:52 Dose: 40 mg Documented by: Gabapentin (Gabapentin 600 Mg Tablet) 600 mg PO BID [facility] Last Admin: 12/02/20 09:52 Dose: 600 mg Documented by: Glucagon (Glucagon 1 Mg/Ml Syringe) 1 mg IM .X1 PRN PRN Reason: Hypoglycemia Sodium Chloride () 250 mls @ 15 mls/hr IV .[id number] PRN PRN Reason: Saline Flush Sodium Chloride () 250 mls @ 15 mls/hr IV .[id number] PRN PRN Reason: Additional IVPB Infusion Sodium Chloride () 1,000 mls @ 100 mls/hr IV .Q10H [facility] Last Admin: 12/02/20 09:51 Dose: 100 mls/hr Documented by: Aztreonam 1 gm/ Sodium (Chloride) 100 mls @ 150 mls/hr IV Q8 [facility] Last Infusion: 12/02/20 06:19 Dose: Infused Documented by: Insulin Human Lispro (Insulin Lispro 100 Unit/Ml Insuln.Pen) 0 unit SC ACHS [facility]; Protocol Last Admin: 12/02/20 06:37 Dose: Not Given Documented by: L-Arginine/L-Glutamine/Calcium HMB (John (Unflavored) Packet) 1 packet PO BIDCM [facility] Last Admin: 12/02/20 09:52 Dose: 1 packet Documented by: Levofloxacin (Levofloxacin 250 Mg Tablet) 250 mg PO DAILY@0600 [facility] Last Admin: 12/02/20 06:21 Dose: 250 mg Documented by: Melatonin (Melatonin 3 Mg Tablet) 3 mg PO QHS PRN PRN PRN Reason: INSOMNIA Last Admin: 11/30/20 02:00 Dose: 3 mg Documented by: Metoprolol Tartrate (Metoprolol Tartrate 25 Mg Tablet) 25 mg PO BID [facility] Last Admin: 12/02/20 09:52 Dose: 25 mg Documented by: Nystatin (Nystatin Powder 15gm Bottle) 1 applic TOPICAL TID [facility]; Protocol Last Admin: 12/02/20 06:20 Dose: 1 applicatio Documented by: Ondansetron HCl (Ondansetron 4 Mg/2 Ml Vial) 4 mg IV Q8H PRN PRN PRN Reason: NAUSEA/VOMITING Last Admin: 11/28/20 15:05 Dose: 4 mg Documented by: Potassium Chloride (Potassium [facility] 10 Meq [facility]t) [facility] Last Admin: 12/02/20 09:52 Dose: 10 meq Documented by: Pravastatin Sodium (Pravastatin 20 Mg Tablet) 20 mg PO QHS [facility] Last Admin: 12/01/20 22:14 Dose: 20 mg Documented by: Senna/Docusate Sodium (Senna/Docusate Sodium 1 Tablet) 2 tablet PO BID PRN PRN PRN Reason: Constipation Sodium Chloride (0.9% Saline Lock 10 Ml Syringe) 10 - 40 ml IV UD PRN PRN Reason: SALINE FLUSH Last Admin: 11/28/20 15:05 Dose: 10 ml Documented by: Sodium Chloride (0.9% Saline Lock 10 Ml Syringe) 10 - 40 ml IV UD PRN PRN Reason: SALINE FLUSH Tolterodine Tartrate (Tolterodine Tartrate 4 Mg Cap.Sa) 4 mg PO DAILY [facility] Last Admin: 12/02/20 09:52 Dose: 4 mg Documented by: Venlafaxine HCl (Venlafaxine Xr 150 Mg Capsule) 150 mg PO BID [facility] Last Admin: 12/02/20 09:52 Dose: 150 mg Documented by: STROKE Vital Signs/Narrative: Vital Signs Temp Pulse Resp BP Pulse Ox 12/02/20 09:52 67 12/02/20 09:50 36.6 C 67 18 110/62 97 Medical Necessity - Tobacco Use Smoking Status: Never smoker Assessment/Plan All Active Problems (Last Reviewed 11/28/20 @ 07:[address] Kyree Dutta MD) UTI (urinary tract infection) (Acute) Encephalopathy (Acute) UTI (urinary tract infection) due to urinary indwelling catheter (Acute) MICHAELLE (acute kidney injury) (Acute) Suprapubic catheter dysfunction (Resolved) 1. UTI, catheter associated: * MDR Pseudomonas plus Proteus mirabalis resistant to FQN, nitrofurantoinand tetracycline. * Yesterday, culture showed sensitivity of PSA to aztreonam, damian with microbiology who stated that it was a mixed sample and may be inaccurate so they are rechecking the Pseudomonas against aztreonam. Discussed with Dr. Flores who stated that would be fine at this time. * Urology on consult to change catheter over 2. Debility: poor baseline performance status, though able to cook for her self. Wheelchair-bound. Pt interested in TCU, however, no beds available until next week. Plan is to return home. 3. CKD 3-4: stable 4. Anemia: stable 5. Stage III sacral decubitus ulcer: continue wound care 6. Tianna interigo: stable. continue nystatin powder. DW pt, no need for systemic antifungals at this time. 7. VTE prophylaxis: SCDs. Inpatient E&M: 20304 Subs Hosp L2
[2020-12-02 11:35] LABS: Bedside Glucose 95 mg/dL (70-110)
[2020-12-02] MEDS: Acetaminophen 325 MG Tablet 650 MG PO (16:25)
[2020-12-02 16:30] LABS: Bedside Glucose 96 mg/dL (70-110)
[2020-12-02] MEDS: Baclofen 10 MG Tablet 20 MG PO (16:30)
[2020-12-02] MEDS: DULoxetine Hcl 60 MG Capsule PO (16:30)
--- NOTE | 2020-12-02 17:30 | PCM.PN.ID ---
Patient Problems: Active and Suspected Problems (Last Reviewed 11/28/20 @ 07:[address] Kyree Dutta MD) UTI (urinary tract infection) (Acute) Encephalopathy (Acute) UTI (urinary tract infection) due to urinary indwelling catheter (Acute) Chronic gram negative bacteria MICHAELLE (acute kidney injury) (Acute) Subjective: Feeling fine, no fever, no abd pain - Physical Exam Vitals/I&O's: Vital Signs Temp Pulse Resp BP Pulse Ox 97.4 F L 78 16 120/64 97 12/02/20 15:00 12/02/20 15:00 12/02/20 15:00 12/02/20 15:00 12/02/20 15:00 Oxygen Flow Rate (L/min) 2 Oxygen Delivery Method Room Air Weight: 134.9 kg Body Mass Index (BMI) 46.5 Finger Stick Blood Glucose 150 Intake and Output for Last 24 Hours 11/30/20 12/01/20 12/02/20 23:59 23:59 23:59 Intake Total 4900 / 4900 3980 / 3980 2551.67 / 2551.67 Output Total 9200 / 9200 2675 / 2675 3750 / 3750 Balance -4300 / -4300 1305 / 1305 -1198.33 / -1198.33 General: Alert, Cooperative, No apparent distress Lungs: Clear to auscultation, Normal air movement Cardiovascular: Regular rate, Regular Rhythm Abdomen: Soft, Non Tender, Non-Distended Skin: No rashes Microbiology Past 72 Hours 11/27/20 17:45 Urine Catheter - Catheter Urine Culture - Preliminary Proteus mirabilis Pseudomonas aeroginosa Laboratory Results 12/01/20 22:11: POC Glucose 105 12/02/20 06:37: POC Glucose 106 12/02/20 06:44: WBC 5.0, RBC 3.20 L, Hgb 8.6 L, Hct 29.4 L, MCV 91.9, MCH 26.9 L, MCHC 29.3 L, RDW Std Deviation 68.4 H, RDW Coeff of Jessi 20.3 H, Plt Count 305, MPV 8.3, Immature Gran % (Auto) 2.200 H, Neut % (Auto) 50.0, Lymph % (Auto) 25.0, [place] % (Auto) 14.8 H, Eos % (Auto) 7.2 H, Baso % (Auto) 0.8, Absolute Neuts (auto) 2.5, Absolute Lymphs (auto) 1.25, Nucleated RBC % 0, Differential Comment SCANNED, Hypochromasia 1+, Anisocytosis 1+, Microcytosis RARE, Macrocytosis RARE 12/02/20 06:44: Sodium 137, Potassium 3.7, Chloride 106, Carbon Dioxide 27.0, Anion Gap 4 L, BUN 31 H, Creatinine 1.66 H, Estim Creat Clear Calc 28.91, Est GFR (MDRD) Af Amer 39 L, Est GFR (MDRD) Non-Af 32 L, BUN/Creatinine Ratio 18.7, Glucose 98, Calcium 8.3 L 12/02/20 11:27: POC Glucose 95 12/02/20 16:24: POC Glucose 96 Current Medications Acetaminophen (Acetaminophen 325 Mg Tablet) 650 mg PO Q6H PRN PRN PRN Reason: Pain Score 1-10/Temp > 100.7 F Last Admin: 12/02/20 16:25 Dose: 650 mg Documented by: Albuterol Sulfate (Albuterol 2.5 Mg/3 Ml Vial.Neb.) 2.5 mg INHALATION Q4H PRN PRN PRN Reason: SOB &/OR WHEEZING Baclofen (Baclofen 10 Mg Tablet) 10 mg PO DAILY [facility] Last Admin: 12/02/20 09:52 Dose: 10 mg Documented by: Baclofen (Baclofen 10 Mg Tablet) 20 mg PO DINNER [facility] Last Admin: 12/02/20 16:30 Dose: 20 mg Documented by: Calamine/Phenol (Menthol/Lanolin/Calamine/Znox 113 Gm Tube) 1 applic TOPICAL TID [facility]; Protocol Last Admin: 12/02/20 14:21 Dose: 1 applicatio Documented by: Dextrose (Dextrose 50%-Water 25 Gm/50 Ml Disp.Syrin) 0 gm IV X1 PRN; Protocol PRN Reason: Hypoglycemia Duloxetine HCl (Duloxetine Hcl 60 Mg Capsule) 60 mg PO DINNER [facility] Last Admin: 12/02/20 16:30 Dose: 60 mg Documented by: Famotidine (Famotidine 20 Mg Tablet) 20 mg PO QHS [facility] Last Admin: 12/01/20 22:14 Dose: 20 mg Documented by: Furosemide (Furosemide 40 Mg Tablet) 40 mg PO DAILY [facility] Last Admin: 12/02/20 09:52 Dose: 40 mg Documented by: Gabapentin (Gabapentin 600 Mg Tablet) 600 mg PO BID [facility] Last Admin: 12/02/20 09:52 Dose: 600 mg Documented by: Glucagon (Glucagon 1 Mg/Ml Syringe) 1 mg IM .X1 PRN PRN Reason: Hypoglycemia Sodium Chloride () 250 mls @ 15 mls/hr IV .[id number] PRN PRN Reason: Saline Flush Sodium Chloride () 250 mls @ 15 mls/hr IV .[id number] PRN PRN Reason: Additional IVPB Infusion Sodium Chloride () 1,000 mls @ 100 mls/hr IV .Q10H [facility] Last Infusion: 12/02/20 15:01 Dose: 100 mls/hr Documented by: Aztreonam 1 gm/ Sodium (Chloride) 100 mls @ 150 mls/hr IV Q8 [facility] Last Infusion: 12/02/20 15:01 Dose: Infused Documented by: Insulin Human Lispro (Insulin Lispro 100 Unit/Ml Insuln.Pen) 0 unit SC ACHS [facility]; Protocol Last Admin: 12/02/20 16:24 Dose: Not Given Documented by: L-Arginine/L-Glutamine/Calcium HMB (John (Unflavored) Packet) 1 packet PO BIDCM [facility] Last Admin: 12/02/20 16:30 Dose: 1 packet Documented by: Levofloxacin (Levofloxacin 250 Mg Tablet) 250 mg PO DAILY@0600 [facility] Last Admin: 12/02/20 06:21 Dose: 250 mg Documented by: Melatonin (Melatonin 3 Mg Tablet) 3 mg PO QHS PRN PRN PRN Reason: INSOMNIA Last Admin: 11/30/20 02:00 Dose: 3 mg Documented by: Metoprolol Tartrate (Metoprolol Tartrate 25 Mg Tablet) 25 mg PO BID [facility] Last Admin: 12/02/20 09:52 Dose: 25 mg Documented by: Nystatin (Nystatin Powder 15gm Bottle) 1 applic TOPICAL TID [facility]; Protocol Last Admin: 12/02/20 14:20 Dose: 1 applicatio Documented by: Ondansetron HCl (Ondansetron 4 Mg/2 Ml Vial) 4 mg IV Q8H PRN PRN PRN Reason: NAUSEA/VOMITING Last Admin: 11/28/20 15:05 Dose: 4 mg Documented by: Potassium Chloride (Potassium Chloride 10 Meq Tablet) 10 meq PO DAILYCM [facility] Last Admin: 12/02/20 09:52 Dose: 10 meq Documented by: Pravastatin Sodium (Pravastatin 20 Mg Tablet) 20 mg PO QHS [facility] Last Admin: 12/01/20 22:14 Dose: 20 mg Documented by: Senna/Docusate Sodium (Senna/Docusate Sodium 1 Tablet) 2 tablet PO BID PRN PRN PRN Reason: Constipation Sodium Chloride (0.9% Saline Lock 10 Ml Syringe) 10 - 40 ml IV UD PRN PRN Reason: SALINE FLUSH Last Admin: 11/28/20 15:05 Dose: 10 ml Documented by: Sodium Chloride (0.9% Saline Lock 10 Ml Syringe) 10 - 40 ml IV UD PRN PRN Reason: SALINE FLUSH Tolterodine Tartrate (Tolterodine Tartrate 4 Mg Cap.Sa) 4 mg PO DAILY [facility] Last Admin: 12/02/20 09:52 Dose: 4 mg Documented by: Venlafaxine HCl (Venlafaxine Xr 150 Mg Capsule) 150 mg PO BID [facility] Last Admin: 12/02/20 09:52 Dose: 150 mg Documented by: Medical Necessity - Tobacco Use Smoking Status: Never smoker Route of nutrition/ use of supplements: [] Nutritional Intake: [] IV Site: [] Henry Catheter: [] - Assessment/Plan Antibiotics: [] Assessment/Plan: [] Active and Suspected Problems (Last Reviewed 11/28/20 @ 07:[address] Kyree Dutta MD) UTI (urinary tract infection) (Acute) Encephalopathy (Acute) UTI (urinary tract infection) due to urinary indwelling catheter (Acute) Chronic gram negative bacteria MICHAELLE (acute kidney injury) (Acute) recurrent uti - Ucx now with pseudomonas, hamilton R to the panel, and proteus. Given overall improvement, doubt that the MDR PsA is a true pathogen. Currently on aztreonam and levaquin, plan on discharge tomorrow off of abx. Will follow
--- NOTE | 2020-12-02 19:05 | PCM.CONS.U ---
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 Today spent probably 30 to 40 minutes talking the patient regarding her situation and options of management. She is in the very difficult situation being wheelchair-bound with all her medical problems. She is concerned about the bleeding we talked with the possibility of bladder cancer but at this point I will think she is a surgical candidate to even take her surgery do a biopsy plus with the active infection need to hold off on this. I think to try to prevent more bladder infections we talked about doing sterile water flushes on a daily basis and she can also even use sterile water with Betadine mixture flushes and the daily basis I told her there is very little signs behind this but hopefully by decreasing the colony counts we can hopefully prevent more infections she understands that septic event could be a very serious life-threatening complication if she gets 1 in the future blood she is also getting very resistant antibiotics and resistant infections. Past Medical History Past Medical History (Chronic Problems): Chronic Problems (Last Reviewed 11/28/20 @ 07:[address] Kyree Dutta MD) Wheelchair dependence (Chronic) Anemia (Chronic) Pressure ulcer of left thigh (Chronic) Gsyby-kl-ytmitiv kidney injury (Chronic) History of atrial fibrillation (Chronic) Ulcer of abdomen wall with fat layer exposed (Chronic) Ulcer of left groin with fat layer exposed (Chronic) Pressure ulcer of coccygeal region, stage 3 (Chronic) Morbid obesity (Chronic) Anxiety and depression (Chronic) HLD (hyperlipidemia) (Chronic) Debility (Chronic) Depression (Chronic) VITA (obstructive sleep apnea) (Chronic) Candidal intertrigo (Chronic) Medical History: Medical History (Last Reviewed 12/02/20 @ 19:[address] Juan Ramon Andrews MD) History of atrial fibrillation (Chronic) Z86.79 Ulcer of abdomen wall with fat layer exposed (Chronic) L98.492 Ulcer of left groin with fat layer exposed (Chronic) L98.492 Pressure ulcer of coccygeal region, stage 3 (Chronic) L89.153 Morbid obesity (Chronic) E66.01 Anxiety and depression (Chronic) F41.9, F32.9 HLD (hyperlipidemia) (Chronic) E78.5 UTI (urinary tract infection) due to urinary indwelling catheter (Acute) T83.511A, N39.0 Chronic gram negative bacteria Severe sepsis (Inactive) A41.9, R65.20 V tach (Inactive) I47.2 VITA (obstructive sleep apnea) (Chronic) G47.33 Candidal intertrigo (Chronic) B37.2 Debility R53.81 DM2 (diabetes mellitus, type 2) E11.9 Essential hypertension I10 VITA (obstructive sleep apnea) G47.33 Allergies adhesive tape Allergy (Verified 11/27/20 17:20) blisters Influenza Virus Vaccines Allergy (Verified 11/27/20 17:20) shortness of breath/severe wheezing iron Allergy (Verified 11/27/20 17:20) from IV form chest pressure and heart palpitations Sulfa (Sulfonamide Antibiotics) Allergy (Verified 11/27/20 17:20) Shortness of breath bactrim does not work for her-per pcp paperwork meloxicam [From Mobic] Adverse Reaction (Verified 11/27/20 17:20) gi upset seasonal allergies Allergy (Uncoded 11/27/20 17:20) Other Home Medications: Ambulatory Orders Medication Instructions Recorded Furosemide [Lasix] 20 mg PO BID 09/30/13 Albuterol Inhaler [Ventolin Hfa] 2 puff INHALATION Q4H PRN PRN 10/30/18 Gabapentin [Neurontin] 600 mg PO BID 10/30/18 Oxybutynin Chloride [Ditropan Xl] 15 mg PO DAILY 10/30/18 Pravastatin [Pravachol] 20 mg PO QHS 12/17/18 Duloxetine HCl 60 mg PO DINNER 03/22/19 Venlafaxine XR [Effexor Xr] 150 mg PO BID 07/02/19 Potassium Chloride [K-Dur] 10 meq PO DAILYCM 08/18/19 Baclofen 20 mg PO DINNER 03/20/20 Baclofen [Lioresal] 10 mg PO DAILY 03/20/20 Aspirin [Aspirin, Baby] 81 mg PO DAILY #0 [facility] 08/13/20 Methenamine Hippurate [Hiprex] 1 gm PO BID #0 08/13/20 Famotidine 20 mg PO QHS 10/15/20 Lisinopril [Zestril] 10 mg PO DAILY 10/15/20 Metformin HCl 500 mg PO BID 10/15/20 metoprolol tartrate 25 mg tablet 25 mg PO BID #180 tab 10/19/20 Cefdinir 300 mg PO BID 11/28/20 Levofloxacin [Levaquin] 250 mg PO DAILY 11/28/20 Surgical History: Surgical History (Last Reviewed 11/28/20 @ 07:[address] Kyree Dutta MD) H/O: hysterectomy Z90.710 Same time as open gallbladder History of cholecystectomy Z90.49 Open, same time as hysterectomy History of tonsillectomy Z90.89 Hx of appendectomy Z90.49 Surgical History: cholecystectomy, hysterectomy, - - Suprapubic catheter placement. Psychiatric History: Anxiety, Bipolar, Depression [employer] History: No pertinent [employer] history Smoking Status: Never smoker - *Family History Maternal History Items: Diabetes, Heart Disease - Her father had a CABG and CHF Paternal History Items: Heart Disease Review of Systems Constitutional: Denies: Chills, Fever, Weight Change HEENT: Denies: Head Aches, Sinus Congestion, Sinus Drainage Cardiovascular: Denies: Chest Pain, Palpitations Respiratory: Denies: Cough, Shortness of breath at rest, Sputum production Gastrointestinal: Denies: Abdominal Pain, Nausea, Vomiting Genitourinary: Denies: Dysuria Musculoskeletal: Denies: Joint Pain, Joint Tenderness Skin: Denies: Rash, Wounds Neurological: Denies: Numbness, Tingling, Focal weakness Psychiatric: Denies: Anxiety, Depression, Homicidal Ideations, Suicidal Ideations Hematologic/ Lymphatic: Denies: Easy Bruising, Easy Bleeding Physical Exam - Physical Exam Vital Signs Temp 97.4 F L 12/02/20 15:00 Pulse 78 12/02/20 15:00 Resp 16 12/02/20 15:00 BP 120/64 12/02/20 15:00 Pulse Ox 97 12/02/20 15:00 Intake & Output 11/30/20 12/01/20 12/02/20 23:59 23:59 23:59 Intake Total 4900 / 4900 3980 / 3980 3351.67 / 3351.67 Output Total 9200 / 9200 2675 / 2675 4750 / 4750 Balance -4300 / -4300 1305 / 1305 -1398.33 / -1398.33 Intake: Oral 3750 / 3750 1680 / 1680 1700 / 1700 Intake, IV Amount 1150 / 1150 2300 / 2300 1651.67 / 1651.67 0.9% Normal Saline 1,000 ML @ 1000 / 1000 2000 / 2000 1451.67 / 1451.67 100 mls/hr IV .Q10H [facility] Rx#: [id number] Azactam 1 GM In 0.9% Normal 200 / 200 200 / 200 Saline 100 ML @ 150 mls/hr IV Q8 [facility] Rx#:[id number] Zosyn 3.375 GM In 0.9% Normal 150 / 150 100 / 100 Saline 50 ML @ 12.5 mls/hr IV Q8 [facility] Rx#:[id number] Output: Urine 7400 / 7400 1725 / 1725 4750 / 4750 #2 Urine 1800 / 1800 950 / 950 General: Alert, Oriented x3 HEENT: Atraumatic Oral: Moist Mucosa Neck: Supple Lungs: Normal air movement Cardiovascular: Regular rate Abdomen: Soft Rectal: Exam deferred Microbiology Past 72 Hours 11/27/20 17:45 Urine Culture - Preliminary Urine Catheter - Catheter Proteus mirabilis Pseudomonas aeroginosa Laboratory Tests Past 24 Hrs 12/02/20 12/02/20 06:44 06:44 WBC 5.0 RBC 3.20 L Hgb 8.6 L Hct 29.4 L MCV 91.9 MCH 26.9 L MCHC 29.3 L RDW Std Deviation 68.4 H RDW Coeff of Jessi 20.3 H Plt Count 305 MPV 8.3 Immature Gran % (Auto) 2.200 H Neut % (Auto) 50.0 Lymph % (Auto) 25.0 Spink % (Auto) 14.8 H Eos % (Auto) 7.2 H Baso % (Auto) 0.8 Absolute Neuts (auto) 2.5 Absolute Lymphs (auto) 1.25 Nucleated RBC % 0 Differential Comment SCANNED Hypochromasia 1+ Anisocytosis 1+ Microcytosis RARE Macrocytosis RARE Sodium 137 Potassium 3.7 Chloride 106 Carbon Dioxide 27.0 Anion Gap 4 L BUN 31 H Creatinine 1.66 H Estim Creat Clear Calc 28.91 Est GFR (MDRD) Af Amer 39 L Est GFR (MDRD) Non-Af 32 L BUN/Creatinine Ratio 18.7 Glucose 98 Calcium 8.3 L Assessment/Plan All Active Problems (Last Reviewed 11/28/20 @ 07:[address] Kyree Dutta MD) UTI (urinary tract infection) (Acute) Encephalopathy (Acute) UTI (urinary tract infection) due to urinary indwelling catheter (Acute) MICHAELLE (acute kidney injury) (Acute) Suprapubic catheter dysfunction (Resolved) 75-year-old female with chronic infections chronic suprapubic catheter multiple comorbidities high risk that this situation will continue we talked about this in great length with the patient today working to have her try to do sterile water flushes at home every day which she says she can do on her own we can also try doing some Betadine water flushes which is somewhat off label but may be will be helpful in decreasing colony counts and preventing more infections she understands that if she gets a very serious bladder infection could be a life-threatening infection given the fact that she is developing such resistant infections. Certainly chronic antibiotics would be an option but usually this leads to long-term resistance any more problems so after we treat this course of infections according to IDs recommendations I do not of long-term antibiotics is really the answer usually only leads to more resistance and more infections. She can follow-up in my office after discharge she can see my nurse practitioner for further care chronic suprapubic catheter is and hopefully management to see if he can cut down the number of infections all her questions were addressed and she can follow-up with me after discharge thanks for the consult.
[2020-12-02] MEDS: Famotidine 20 MG Tablet PO (20:56)
[2020-12-02] MEDS: Pravastatin 20 MG Tablet PO (20:56)
[2020-12-02 21:31] LABS: Bedside Glucose 96 mg/dL (70-110)
[2020-12-03 02:55] VITALS: BP 132/82; PULSE 82; RESP 18; TEMP 36.9; O2SAT 97
[2020-12-03] MEDS: levoFLOXacin 250 MG Tablet PO (05:31)
[2020-12-03] MEDS: Nystatin Powder 15gm Bottle 1 APPLIC TOPICAL (05:32)
[2020-12-03 06:40] LABS: Bedside Glucose 97 mg/dL (70-110)
[2020-12-03 07:28] LABS: Anion Gap 3 (5-15); BUN 33 mg/dL (7-18); BUN/Creat Ratio 24.3 RATIO (10-20); Calcium,Total 7.9 mg/dL (8.5-10.1); Chloride 107 mmol/L (98-107); Creatinine, Serum 1.36 mg/dL (0.55-1.02); EST Glomerular Filtration Rate 40 mL/min (>60); Est Glom Filt Rate - Afr Amer 49 mL/min (>60); Estimated Creatinine Clearance 35.29 ml/min; Glucose 92 mg/dL (74-106); Potassium 3.9 mmol/L (3.5-5.1); Sodium Level 137 mmol/L (136-145)
[2020-12-03 07:32] VITALS: O2SAT 95
[2020-12-03] MEDS: Juven (unflavored) Packet 1 PACKET PO (09:02)
[2020-12-03] MEDS: Tolterodine Tartrate 4 MG CAP.SA PO (09:03)
[2020-12-03 09:04] VITALS: BP 119/69; PULSE 70
[2020-12-03] MEDS: Venlafaxine XR 150 MG Capsule PO (09:04)
[2020-12-03] MEDS: Gabapentin 600 MG Tablet PO (09:04)
[2020-12-03] MEDS: Furosemide 40 MG Tablet PO (09:04)
[2020-12-03] MEDS: Metoprolol Tartrate 25 MG Tablet PO (09:04)
[2020-12-03] MEDS: Baclofen 10 MG Tablet PO (09:04)
[2020-12-03 09:45] VITALS: BP 119/69; PULSE 70; RESP 16; TEMP 36.6; O2SAT 98
--- NOTE | 2020-12-03 10:09 | DCINST_ITS ---
- Discharge Diagnoses Current Active Problems: Current Active and Chronic Problems (Last Reviewed 12/02/20 @ 19:[address] Juan Ramon Andrews MD) Wheelchair dependence (Chronic) Anemia (Chronic) Pressure ulcer of left thigh (Chronic) UTI (urinary tract infection) (Acute) Encephalopathy (Acute) Xowyj-js-jfbdhub kidney injury (Chronic) History of atrial fibrillation (Chronic) Ulcer of abdomen wall with fat layer exposed (Chronic) Ulcer of left groin with fat layer exposed (Chronic) Pressure ulcer of coccygeal region, stage 3 (Chronic) Morbid obesity (Chronic) Anxiety and depression (Chronic) HLD (hyperlipidemia) (Chronic) UTI (urinary tract infection) due to urinary indwelling catheter (Acute) Chronic gram negative bacteria Debility (Chronic) MICHAELLE (acute kidney injury) (Acute) Depression (Chronic) VITA (obstructive sleep apnea) (Chronic) Candidal intertrigo (Chronic) You will use the following diet at home:: Calorie/Carbohydrate Controlled (specify 1200, 1400, etc) - 1800 Your food should be the consistency of: Regular Your liquids should be the consistency of: Regular/Thin Discharge Activity: Return to Normal Activity Call your doctor if you observe: Fever of 101 or Higher Allergies/Adverse Reactions: Allergies adhesive tape Allergy (Verified 11/27/20 17:20) blisters Influenza Virus Vaccines Allergy (Verified 11/27/20 17:20) shortness of breath/severe wheezing iron Allergy (Verified 11/27/20 17:20) from IV form chest pressure and heart palpitations Sulfa (Sulfonamide Antibiotics) Allergy (Verified 11/27/20 17:20) Shortness of breath bactrim does not work for her-per pcp paperwork meloxicam [From Mobic] Adverse Reaction (Verified 11/27/20 17:20) gi upset seasonal allergies Allergy (Uncoded 11/27/20 17:20) Other Medications to take at Discharge Furosemide [Lasix] 20 mg PO BID 09/30/13 Albuterol Inhaler [Ventolin Hfa] 2 puff INHALATION Q4H PRN PRN 10/30/18 Gabapentin [Neurontin] 600 mg PO BID 10/30/18 Oxybutynin Chloride [Ditropan Xl] 15 mg PO DAILY 10/30/18 Pravastatin [Pravachol] 20 mg PO QHS 12/17/18 Duloxetine HCl 60 mg PO DINNER 03/22/19 Venlafaxine XR [Effexor Xr] 150 mg PO BID 07/02/19 Potassium Chloride [K-Dur] 10 meq PO DAILYCM 08/18/19 Baclofen 20 mg PO DINNER 03/20/20 Baclofen [Lioresal] 10 mg PO DAILY 03/20/20 Aspirin [Aspirin, Baby] 81 mg PO DAILY #0 [facility] 08/13/20 Methenamine Hippurate [Hiprex] 1 gm PO BID #0 08/13/20 Famotidine 20 mg PO QHS 10/15/20 Lisinopril [Zestril] 10 mg PO DAILY 10/15/20 Metformin HCl 500 mg PO BID 10/15/20 metoprolol tartrate 25 mg tablet 25 mg PO BID #180 tab 10/19/20 Nystatin Powder [Mycostatin Powder] 1 applic TOPICAL TID #1 bottle 12/03/20 Povidone-Iodine [Betadine] 15 ml TP QODAY #1 solution 12/03/20 Water For Irrigation,Sterile [Water] 1,000 ml IR QODAY #1 irrig.soln 12/03/20 The following prescriptions were given: Povidone-Iodine [Betadine] 15 ml TP QODAY #1 solution Transmission Status: Pending to [facility] Nystatin Powder [Mycostatin Powder] 1 applic TOPICAL TID #1 bottle Transmission Status: Pending to [facility] Water For Irrigation,Sterile [Water] 1,000 ml IR QODAY #1 irrig.soln Transmission Status: Pending to [facility] Primary Care Physician: Colby Valenzuela DO [Primary Care Provider] - Within 2 Weeks Test Results: Test results from this visit will be discussed in further detail at your follow- up appointment, if applicable. Please Follow Up With: Juan Ramon Andrews MD When: 1-2 weeks Proposed Discharge Date: 12/03/20
--- NOTE | 2020-12-03 10:11 | DS.PCM_ITS ---
Discharge Date and Diagnosis - Problem List Patient Problems: Active and Suspected Problems (Last Reviewed 12/02/20 @ 19:[address] Juan Ramon Andrews MD) UTI (urinary tract infection) (Acute) Encephalopathy (Acute) UTI (urinary tract infection) due to urinary indwelling catheter (Acute) Chronic gram negative bacteria MICHAELLE (acute kidney injury) (Acute) Date of Admission: 11/28/20 Date of Discharge: 12/03/20 - Primary Discharge Diagnosis Acute Problems: Active Problems (Last Reviewed 12/02/20 @ 19:[address] Juan Ramon Andrews MD) UTI (urinary tract infection) (Acute) Encephalopathy (Acute) UTI (urinary tract infection) due to urinary indwelling catheter (Acute) Chronic gram negative bacteria MICHAELLE (acute kidney injury) (Acute) - Secondary Discharge Diagnosis Chronic Problems: Chronic Problems (Last Reviewed 12/02/20 @ 19:[address] Juan Ramon Andrews MD) Wheelchair dependence (Chronic) Anemia (Chronic) Pressure ulcer of left thigh (Chronic) [id number] kidney injury (Chronic) History of atrial fibrillation (Chronic) Ulcer of abdomen wall with fat layer exposed (Chronic) Ulcer of left groin with fat layer exposed (Chronic) Pressure ulcer of coccygeal region, stage 3 (Chronic) Morbid obesity (Chronic) Anxiety and depression (Chronic) HLD (hyperlipidemia) (Chronic) Debility (Chronic) Depression (Chronic) VITA (obstructive sleep apnea) (Chronic) Candidal intertrigo (Chronic) Hospital Course and Treatment Imaging Results: Clinical Impression(s) from Imaging Studies Chest X-Ray 11/27/20 17:40 IMPRESSION: Possible residual right lower lobe infiltrate versus confluence of vessels Electronically Signed: Salvatore Marlow MD at 18:19 EST , Service support , Brain CT 11/27/20 18:30 IMPRESSION: Chronic involutional changes of the brain. Electronically Signed: Salvatore Marlow MD at 19:24 EST , Service support , Consultations 11/28/20 05:06 Consult: Onc/Wound/chair lift operator Routine Comment: Reason for Consult:: Sacral ulcer Mark: ID Darryl: [id number] Operations: None Procedures: None Summary of Care Provided: The patient is a 75 year old F presents to the emergency room with confusion. Patient was found to have metabolic encephalopathy secondary to urinary tract infection. Encephalopathy did resolve. For the urinary tract infection, it is a catheter associated urinary tract infection and grew out 2 different organisms, 1 being multidrug-resistant Pseudomonas rigidness and the other was a Proteus mirabilis. Patient did improve with antibiotics, however the Pseudomonas, was resistant to these antibiotics. Patient was seen by infectious disease who felt that since patient did get better with antibiotics that Pseudomonas was resistant to that the Pseudomonas was likely a contaminant. Patient would complete antibiotics while she is in the hospital would not require further antibiotics upon discharge. Patient does have a suprapubic catheter which she has had in for approximately 10 years. Urology was consulted for evaluation. Urology would follow-up with the patient as outpatient and then change catheter out. Patient had her catheter changed on the fifth of this month. Urology is recommending some off label Betadine irrigations with sterile water to help mitigate recurrent urinary tract infections. Patient is already on methenamine which she will continue but patient will continue with the Betadine to sterile water for 1-4, respectively every other day. Patient will follow up with urology as to how long she will need to continue with this. Patient did have acute kidney injury but that did subsequently resolved. Patient's Cipro was held but will be resumed upon discharge. Patient does have debility and but does have a poor performance status at baseline. Patient, however, does cook for herself but does require assistance in regards to transfers. Patient does have a live-in aide and will have home health care services upon discharge. [] Patient Problems: Active and Suspected Problems (Last Reviewed 12/02/20 @ 19:[address] Juan Ramon Andrews MD) UTI (urinary tract infection) (Acute) Encephalopathy (Acute) UTI (urinary tract infection) due to urinary indwelling catheter (Acute) Chronic gram negative bacteria MICHAELLE (acute kidney injury) (Acute) - Physical Exam Vitals/I&O's: Vital Signs Temp Pulse Resp BP Pulse Ox 36.6 C 70 16 119/69 98 12/03/20 09:45 12/03/20 09:45 12/03/20 09:45 12/03/20 09:45 12/03/20 09:45 Oxygen Flow Rate (L/min) 2 Oxygen Delivery Method Room Air Weight: 134.9 kg Body Mass Index (BMI) 46.5 Finger Stick Blood Glucose 150 Intake and Output for Last 24 Hours 12/01/20 12/02/20 12/03/20 23:59 23:59 23:59 Intake Total 3980 / 3980 4400.00 / 4400.00 1600.00 / 1600.00 Output Total 2675 / 2675 5950 / 5950 2200 / 2200 Balance 1305 / 1305 -1550.00 / -1550.00 -600.00 / -600.00 General: Alert, No apparent distress HEENT: Atraumatic, Normocephalic Oral: Moist Mucosa, No Gingival or Mucosal Lesions/ Ulcerations Skin: - - Yeast under the right side of her pannus. Microbiology Past 72 Hours 11/27/20 17:45 Urine Catheter - Catheter Urine Culture - Final Proteus mirabilis Pseudomonas aeroginosa Laboratory Results 11/29/20 15:46: Crossmatch See Detail 12/02/20 11:27: POC Glucose 95 12/02/20 16:24: POC Glucose 96 12/02/20 20:55: POC Glucose 96 12/03/20 06:29: POC Glucose 97 12/03/20 06:35: Sodium 137, Potassium 3.9, Chloride 107, Carbon Dioxide 27.0, Anion Gap 3 L, BUN 33 H, Creatinine 1.36 H, Estim Creat Clear Calc 35.29, Est GFR (MDRD) Af Amer 49 L, Est GFR (MDRD) Non-Af 40 L, BUN/Creatinine Ratio 24.3 H , Glucose 92, Calcium 7.9 L Current Medications Acetaminophen (Acetaminophen 325 Mg Tablet) 650 mg PO Q6H PRN PRN PRN Reason: Pain Score 1-10/Temp > 100.7 F Last Admin: 12/02/20 16:25 Dose: 650 mg Documented by: Albuterol Sulfate (Albuterol 2.5 Mg/3 Ml Vial.Neb.) 2.5 mg INHALATION Q4H PRN PRN PRN Reason: SOB &/OR WHEEZING Baclofen (Baclofen 10 Mg Tablet) 10 mg PO DAILY ZARINA Last Admin: 12/03/20 09:04 Dose: 10 mg Documented by: Baclofen (Baclofen 10 Mg Tablet) 20 mg PO DINNER [facility] Last Admin: 12/02/20 16:30 Dose: 20 mg Documented by: Calamine/Phenol (Menthol/Lanolin/Calamine/Znox 113 Gm Tube) 1 applic TOPICAL TID [facility]; Protocol Last Admin: 12/03/20 05:32 Dose: Not Given Documented by: Dextrose (Dextrose 50%-Water 25 Gm/50 Ml Disp.Syrin) 0 gm IV X1 PRN; Protocol PRN Reason: Hypoglycemia Duloxetine HCl (Duloxetine Hcl 60 Mg Capsule) 60 mg PO DINNER [facility] Last Admin: 12/02/20 16:30 Dose: 60 mg Documented by: Famotidine (Famotidine 20 Mg Tablet) 20 mg PO QHS [facility] Last Admin: 12/02/20 20:56 Dose: 20 mg Documented by: Furosemide (Furosemide 40 Mg Tablet) 40 mg PO DAILY [facility] Last Admin: 12/03/20 09:04 Dose: 40 mg Documented by: Gabapentin (Gabapentin 600 Mg Tablet) 600 mg PO BID [facility] Last Admin: 12/03/20 09:04 Dose: 600 mg Documented by: Glucagon (Glucagon 1 Mg/Ml Syringe) 1 mg IM .X1 PRN PRN Reason: Hypoglycemia Sodium Chloride () 250 mls @ 15 mls/hr IV .[id number] PRN PRN Reason: Saline Flush Sodium Chloride () 250 mls @ 15 mls/hr IV .[id number] PRN PRN Reason: Additional IVPB Infusion Aztreonam 1 gm/ Sodium (Chloride) 100 mls @ 150 mls/hr IV Q8 [facility] Last Infusion: 12/03/20 06:15 Dose: Infused Documented by: Insulin Human Lispro (Insulin Lispro 100 Unit/Ml Insuln.Pen) 0 unit SC ACHS [facility]; Protocol Last Admin: 12/03/20 06:38 Dose: Not Given Documented by: L-Arginine/L-Glutamine/Calcium HMB (John (Unflavored) Packet) 1 packet PO BIDCM [facility] Last Admin: 12/03/20 09:02 Dose: 1 packet Documented by: Levofloxacin (Levofloxacin 250 Mg Tablet) 250 mg PO DAILY@0600 [facility] Last Admin: 12/03/20 05:31 Dose: 250 mg Documented by: Melatonin (Melatonin 3 Mg Tablet) 3 mg PO QHS PRN PRN PRN Reason: INSOMNIA Last Admin: 11/30/20 02:00 Dose: 3 mg Documented by: Metoprolol Tartrate (Metoprolol Tartrate 25 Mg Tablet) 25 mg PO BID [facility] Last Admin: 12/03/20 09:04 Dose: 25 mg Documented by: Nystatin (Nystatin Powder 15gm Bottle) 1 applic TOPICAL TID [facility]; Protocol Last Admin: 12/03/20 05:32 Dose: 1 applicatio Documented by: Ondansetron HCl (Ondansetron 4 Mg/2 Ml Vial) 4 mg IV Q8H PRN PRN PRN Reason: NAUSEA/VOMITING Last Admin: 11/28/20 15:05 Dose: 4 mg Documented by: Potassium Chloride (Potassium Chloride 10 Meq Tablet) [facility] Last Admin: 12/03/20 09:03 Dose: 10 meq Documented by: Pravastatin Sodium (Pravastatin 20 Mg Tablet) 20 mg PO QHS [facility] Last Admin: 12/02/20 20:56 Dose: 20 mg Documented by: Senna/Docusate Sodium (Senna/Docusate Sodium 1 Tablet) 2 tablet PO BID PRN PRN PRN Reason: Constipation Sodium Chloride (0.9% Saline Lock 10 Ml Syringe) 10 - 40 ml IV UD PRN PRN Reason: SALINE FLUSH Last Admin: 11/28/20 15:05 Dose: 10 ml Documented by: Sodium Chloride (0.9% Saline Lock 10 Ml Syringe) 10 - 40 ml IV UD PRN PRN Reason: SALINE FLUSH Tolterodine Tartrate (Tolterodine Tartrate 4 Mg Cap.Sa) 4 mg PO DAILY [facility] Last Admin: 12/03/20 09:03 Dose: 4 mg Documented by: Venlafaxine HCl (Venlafaxine Xr 150 Mg Capsule) 150 mg PO BID [facility] Last Admin: 12/03/20 09:04 Dose: 150 mg Documented by: Discharge Diet: 1800 Calorie Control Diet Discharge Activity: Return to Normal Activity Call your doctor if you observe: Fever of 101 or Higher Home Medications: Medications to take at Discharge Furosemide [Lasix] 20 mg PO BID 09/30/13 Albuterol Inhaler [Ventolin Hfa] 2 puff INHALATION Q4H PRN PRN 10/30/18 Gabapentin [Neurontin] 600 mg PO BID 10/30/18 Oxybutynin Chloride [Ditropan Xl] 15 mg PO DAILY 10/30/18 Pravastatin [Pravachol] 20 mg PO QHS 12/17/18 Duloxetine HCl 60 mg PO DINNER 03/22/19 Venlafaxine XR [Effexor Xr] 150 mg PO BID 07/02/19 Potassium Chloride [K-Dur] 10 meq PO DAILYCM 08/18/19 Baclofen 20 mg PO DINNER 03/20/20 Baclofen [Lioresal] 10 mg PO DAILY 03/20/20 Aspirin [Aspirin, Baby] 81 mg PO DAILY #0 [facility] 08/13/20 Methenamine Hippurate [Hiprex] 1 gm PO BID #0 08/13/20 Famotidine 20 mg PO QHS 10/15/20 Lisinopril [Zestril] 10 mg PO DAILY 10/15/20 Metformin HCl 500 mg PO BID 10/15/20 metoprolol tartrate 25 mg tablet 25 mg PO BID #180 tab 10/19/20 Nystatin Powder [Mycostatin Powder] 1 applic TOPICAL TID #1 bottle 12/03/20 Povidone-Iodine [Betadine] 15 ml TP QODAY #1 solution 12/03/20 Water For Irrigation,Sterile [Water] 1,000 ml IR QODAY #1 irrig.soln 12/03/20 Following Prescriptions Were Given to Patient: Povidone-Iodine [Betadine] 15 ml TP QODAY #1 solution Transmission Status: Pending to [facility] Nystatin Powder [Mycostatin Powder] 1 applic TOPICAL TID #1 bottle Transmission Status: Pending to [facility] Water For Irrigation,Sterile [Water] 1,000 ml IR QODAY #1 irrig.soln Transmission Status: Pending to [facility] Primary Care Physician: Colby Valenzuela DO [Primary Care Provider] - Within 2 Weeks Please Follow Up With: Juan Ramon Andrews MD When: 1-2 weeks Disposition: Home Minutes spent on discharge:: 36 Patient Condition:: Fair Medical Necessity - Tobacco Use Smoking Status: Never smoker Meaningful Use Info Meaningful Use Diagnoses (Choose all that apply): None applicable Inpatient E&M: [id number] [facility]
--- NOTE | 2020-12-03 11:37 | PHA.DC.MR ---
Pharmacy Service has performed discharge medication reconciliation for this patient. The patient's discharge medication list was reviewed for discrepancies and discrepancies were resolved. Home Medications Furosemide [Lasix] 20 mg PO BID 09/30/13 Albuterol Inhaler [Ventolin Hfa] 2 puff INHALATION Q4H PRN PRN 10/30/18 Gabapentin [Neurontin] 600 mg PO BID 10/30/18 Oxybutynin Chloride [Ditropan Xl] 15 mg PO DAILY 10/30/18 Pravastatin [Pravachol] 20 mg PO QHS 12/17/18 Duloxetine HCl 60 mg PO DINNER 03/22/19 Venlafaxine XR [Effexor Xr] 150 mg PO BID 07/02/19 Potassium Chloride [K-Dur] 10 meq PO DAILYCM 08/18/19 Baclofen 20 mg PO DINNER 03/20/20 Baclofen [Lioresal] 10 mg PO DAILY 03/20/20 Aspirin [Aspirin, Baby] 81 mg PO DAILY #0 [facility] heart health 08/13/20 Methenamine Hippurate [Hiprex] 1 gm PO BID #0 08/13/20 Famotidine 20 mg PO QHS 10/15/20 Lisinopril [Zestril] 10 mg PO DAILY 10/15/20 Metformin HCl 500 mg PO BID 10/15/20 metoprolol tartrate 25 mg tablet 25 mg PO BID #180 tab 10/19/20 Nystatin Powder [Mycostatin Powder] 1 applic TOPICAL TID #1 bottle 12/03/20 Povidone-Iodine [Betadine] 15 ml TP QODAY #1 solution 12/03/20 Water For Irrigation,Sterile [Water] 1,000 ml IR QODAY #1 irrig.soln 12/03/20
[2020-12-03 11:40] LABS: Bedside Glucose 92 mg/dL (70-110)
--- NOTE | 2020-12-04 15:55 | CASEMGMT ---
TONI MARTINES Discharge Follow-Up Phone Call. Viola: Asya Strata: 4 Discharge Date:12/03/20 Adm Dx: Acute Cystitis Call to pt to inquire about how she has been doing since being discharged from the hospital. She states she has had a busy day at home, doing some cleaning and boiling eggs, and she plans to take a nap soon. She states her caregiver was not able to come to her home today so her sister came to help her. She is aware [facility] plans to do start of care tomorrow and plans to call them tomorrow morning to inquire about what time. She states she is aware of appts to be scheduled w/Dr Valenzuela and Dr Andrews and plans to call to schedule them on Monday. She states she was able to get all of her new medications and denies having any questions about them or other medications. She denies having any other needs/concerns/questions. TONI MARTINES thanked pt for choosing [facility]. Sabina CHUA RN, CM
== END 2020-12-03 13:15 | disposition home health service (06) | DRG 698 ==
LOC: ED 20:28 → MS3 21:48
PROVIDERS: Internal Medicine; Admitting Provider Hospitalist; Emergency Provider Emergency Medicine; PCP Family Medicine
DX: T83.510A Infection and inflammatory reaction due to cystostomy catheter, initial encounter (principal); L89.153 Pressure ulcer of sacral region, stage 3; G93.41 Metabolic encephalopathy; N17.9 Acute kidney failure, unspecified; N30.01 Acute cystitis with hematuria; Z16.23 Resistance to quinolones and fluoroquinolones; Z16.29 Resistance to other single specified antibiotic; I48.20 Chronic atrial fibrillation, unspecified; Z68.42 Body mass index [BMI] 45.0-49.9, adult; N18.4 Chronic kidney disease, stage 4 (severe); B96.5 Pseudomonas (aeruginosa) (mallei) (pseudomallei) as the cause of diseases classified elsewhere; E86.0 Dehydration; D63.8 Anemia in other chronic diseases classified elsewhere; I12.9 Hypertensive chronic kidney disease with stage 1 through stage 4 chronic kidney disease, or unspecified chronic kidney disease; B96.4 Proteus (mirabilis) (morganii) as the cause of diseases classified elsewhere; Y84.6 Urinary catheterization as the cause of abnormal reaction of the patient, or of later complication, without mention of misadventure at the time of the procedure; Y92.9 Unspecified place or not applicable; E11.22 Type 2 diabetes mellitus with diabetic chronic kidney disease; E78.5 Hyperlipidemia, unspecified; B37.2 Candidiasis of skin and nail; D50.0 Iron deficiency anemia secondary to blood loss (chronic); L89.222 Pressure ulcer of left hip, stage 2; G47.33 Obstructive sleep apnea (adult) (pediatric); F31.9 Bipolar disorder, unspecified; F41.9 Anxiety disorder, unspecified; E66.01 Morbid (severe) obesity due to excess calories; Z93.59 Other cystostomy status; Z99.3 Dependence on wheelchair; Z79.84 Long term (current) use of oral hypoglycemic drugs; Z79.82 Long term (current) use of aspirin; Z79.899 Other long term (current) drug therapy; Z79.2 Long term (current) use of antibiotics; Z87.440 Personal history of urinary (tract) infections
CPT/HCPCS: 36415; 70450; 71045; 80048; 80076; 81001; 82140; 82607; 82728; 82746; 82962; 83010; 83540; 83550; 83605; 84443; 84484; 85025; 85045; 86850; 86900; 86901; 86920; 86922; 87077; 87086; 87088; 87184; 87186; 93005; 99285; J7030; J7050; P9016; A4216; J0696; J1940; J2405

== ENCOUNTER 2020-12-11 10:43 | Outpatient (RCR) | payer MEDICARE, SELFPAY ==
[2020-11-13 00:17] VITALS: BP 104/60; PULSE 100; RESP 16; TEMP 36.4; BMI 51.2
[2020-11-27 21:38] VITALS: BMI 46.5
[2020-12-11 11:06] VITALS: BP 102/52; PULSE 73; RESP 18; TEMP 36.4; BMI 46.5
--- NOTE | 2020-12-11 11:08 | WC ---
pt states she was hospitalized 2 weeks ago for 6 days for UTI and low hemoglobin.
--- NOTE | 2020-12-11 12:06 | PCM.WC.PN ---
(1) Wheelchair dependence Status: Chronic Code(s): Z99.3 - Dependence on wheelchair (2) Pressure ulcer of coccygeal region, stage 3 Status: Chronic Code(s): L89.153 - Pressure ulcer of sacral region, stage 3 (3) Morbid obesity Status: Chronic Code(s): E66.01 - Morbid (severe) obesity due to excess calories Type of Wound Date of Service: 12/12/20 Chief Complaint: ulcers of left groin and abdomen, pressure ulcer of coccyx History of Wound: Samra is a 74 yo woman who presented to the wound center for ulcers of left groin and abdomen referred by wound nurse at [facility]. She was hospitalized at [facility] for urosepsis multiple times. She was on IV antibiotics of Meropenem and Vancomycin. She is morbidly obese and has problems with candidal intertrigo and has ulcers that open frequently for several years. She was using towels to keep moisture from accumulating under her skin folds but this has been ineffective. She started using InstaDry sheets since discharge from the hospital which has improved the moisture in her folds. She has been using nystatin powder as well. She had been using bacitracin to the ulcer of her abdomen. She has an indwelling suprapubic catheter that is changed monthly. She has heavy drainage from her ulcers. She is wheelchair bound and has an aid that helps her daily for a few hours per day. She denies fever or chills. In May 2019, she reports that she has a chronic ulcer of her coccyx area that was previously surgically debrided that comes and goes and has gotten worse since she was in the residential in early 2018. Progress of Wound: Samra is here for follow up of ulcer of coccyx. She is tolerating Fibracol dressings to coccyx. She uses ABD pads and a pillowcase to wick away moisture from her inguinal folds. She maintains improvement in erythema and the groin ulcers are healed. She has had improvement to coccyx ulcer. She is tolerating fibracol to her coccyx ulcer and has moderate to heavy drainage from this ulcer. Her mid-abdomen ulcer remains healed. TShe denies fever or chills, nausea, vomiting, or diarrhea. 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 - Physical Exam Vital Signs Temp Pulse Resp BP 97.5 F L 73 18 102/52 L 12/11/20 11:06 12/11/20 11:06 12/11/20 11:06 12/11/20 11:06 General: Alert, Oriented x3, Cooperative, No apparent distress HEENT: Atraumatic, Normocephalic Oral: Moist Mucosa Abdomen: Obese Extremities: Edema Skin: Ulcer/ Wound Wound Measurements and Assessment WC - Nurse 1 - General Ulcer Measurement Start: 12/11/20 11:06 Freq: Status: Active Protocol: Activity Type Activity Date Activity User E-Sign Co-Sign Detail Recorded Client Recorded Date Recorded By Document 12/11/20 11:06 RB [id number] 12/11/20 11:08 RB 12/11/20 11:06 Wound Center Nurse 1 [Ulcer Assessment] #3 Coccyx -Combined with other wound No -Current Size (cm) - Length 0.5 -Current Size (cm) - Width 1.3 -Current Size (cm) - Depth 0.3 -Total Square Cm 0.65 -Tunneling No -Undermining/Tunneling Yes -Undermining/Tunneling Starts (O' 3 clock) -Undermining/Tunneling Ends (O'clock) 3 -Maximum Distance (cm) 0.5 -Circular Undermining No -Exudate Amt Small -Exudate Type Serosanguineous -Wound Margin Thickened -Granulation Amt Medium (34-66%) -Granulation Quality [place] -Slough/Fibrin Yes -Necrosis Amt Small (1-33%) -Necrotic Tissue Type Adherent Slough -Structure Exposed N/A -Texture (Jessica-wound Skin Appearance) Assessed -Moisture (Jessica-wound Skin Appearance Assessed ) -Color (Jessica-wound Skin Appearance) Assessed -Temperature (Jessica-wound Skin No Abnormality Appearance) (Pt Warm) -Tenderness on Palpation (Jessica-wound No Skin Appearance) -Ulcer Cleansing Wound Cleanser -Foul Odor after Cleansing No -Anesthetic Used 5% Lidocaine Gel WC - Nurse 2 - General Ulcer CM Notes Start: 12/11/20 11:06 Freq: Status: Active Protocol: Activity Type Activity Date Activity User E-Sign Co-Sign Detail Recorded Client Recorded Date Recorded By Document 12/11/20 11:29 MW [id number] 12/11/20 11:29 MW 01/29/21 11:29 Wound Center Nurse 2 [Procedure/Treatment] -Time 11:29 -Correct Patient Yes -Correct Side, Site, Position Yes -Correct Procedure Yes -Procedure Performed Yes -Type of Procedure Debridement -Clinical Debridement Subcutaneous -Tissue Removed Subcutaneous -Post Debridement (cm) - Length 0.7 -Post Debridement (cm) - Width 0.3 -Post Debridement (cm) - Depth 0.3 -Total Square (Post) (cm) 0.21 -Area of Debridement (cm) - Length 0.7 -Area of Debridement (cm) - Width 0.3 -Total Square (Area) (cm) 0.21 -Tunneling No -Undermining/Tunneling No -Circular Undermining No -Wound/Ulcer Outcome Not Healed -Ulcer Cleansing Rinsed/ Irrigated with Saline -Foul Odor after Cleansing No -Bioengineered Tissue No -Bleeding Controlled with Pressure -Offloading No -Treatment Response Procedure Tolerated Well -Debridement - Subq, 1st 20sq cm Yes [See Physician Procedure note for Specifics] Pain Scale: 0-10 Numeric [Pain] -Is Patient Pain Free? Yes - Nurse 3 - General Ulcer D/C NN Start: 12/11/20 11:06 Freq: Status: Active Protocol: Activity Type Activity Date Activity User E-Sign Co-Sign Detail Recorded Client Recorded Date Recorded By Document 12/11/20 11:29 MW [id number] 12/11/20 11:30 MW 12/11/20 11:29 Wound Care Nurse 3 [Wound Dressing] #3 Coccyx -Ulcer Cleansing Rinsed/ Irrigated with Saline -Foul Odor after Cleansing No -Negative Pressure Wound Therapy N/A -Other Dressing fibracol plus -Primary Dressing Covered/Secured Dry Gauze, with Secured with Tape [Post Procedure Tolerated] -Treatment Response Procedure Tolerated Well Teaching: Wound Center [Wound Center Education] (Items with an * have Printed Materials Available- Please identify what is given to patient under the Teaching materials given to patient and caregiver Section. Dressing Your Wound -Person Taught Patient -Teaching Method Discussion, Demonstration -Response to teaching Verbalize understanding WC - Visit Discharge [Visit Discharge Information] -Discharge Condition Stable -Ambulatory Status Wheelchair -Transportation Private Auto -Accompanied by self -Medication Reconcilliation completed No & provided to patient/care provider -Clinical Summary of Care Provided Yes Psych/Mental Status: Normal Affect, Appropriate Debridement Note Post-Debridement Measurements/Treatment - Nurse 2 - General Ulcer CM Notes Start: 12/11/20 11:06 Freq: Status: Active Protocol: Activity Type Activity Date Activity User E-Sign Co-Sign Detail Recorded Client Recorded Date Recorded By Document 12/11/20 11:29 MW [id number] 12/11/20 11:29 MW 12/11/20 11:29 Wound Center Nurse 2 #3 Coccyx -Time 11:29 -Correct Patient Yes -Correct Side, Site, Position Yes -Correct Procedure Yes -Procedure Performed Yes -Type of Procedure Debridement -Clinical Debridement Subcutaneous -Tissue Removed Subcutaneous -Post Debridement (cm) - Length 0.7 -Post Debridement (cm) - Width 0.3 -Post Debridement (cm) - Depth 0.3 -Total Square (Post) (cm) 0.21 -Area of Debridement (cm) - Length 0.7 -Area of Debridement (cm) - Width 0.3 -Total Square (Area) (cm) 0.21 -Tunneling No -Undermining/Tunneling No -Circular Undermining No -Wound/Ulcer Outcome Not Healed -Ulcer Cleansing Rinsed/ Irrigated with Saline -Foul Odor after Cleansing No -Bioengineered Tissue No -Bleeding Controlled with Pressure -Offloading No -Treatment Response Procedure Tolerated Well -Debridement - Subq, 1st 20sq cm Yes Pain Scale: 0-10 Numeric Is Patient Pain Free? Yes WC - Nurse 3 - General Ulcer D/C NN Start: 12/11/20 11:06 Freq: Status: Active Protocol: Activity Type Activity Date Activity User E-Sign Co-Sign Detail Recorded Client Recorded Date Recorded By Document 12/11/20 11:29 MW [id number] 12/11/20 11:30 MW 12/11/20 11:29 Wound Care Nurse 3 #3 Coccyx -Ulcer Cleansing Rinsed/ Irrigated with Saline -Foul Odor after Cleansing No -Negative Pressure Wound Therapy N/A -Other Dressing fibracol plus -Primary Dressing Covered/Secured with Dry Gauze, Secured with Tape Treatment Response Procedure Tolerated Well Teaching: Wound Center Dressing Your Wound -Person Taught Patient -Teaching Method Discussion, Demonstration -Response to teaching Verbalize understanding WC - Visit Discharge Discharge Condition Stable Ambulatory Status Wheelchair Transportation Private Auto Accompanied by self Medication Reconcilliation completed & No provided to patient/care provider Clinical Summary of Care Provided Yes Wound debrided: coccyx Laterality: Not Applicable Wound Grade/Stage: Stage III Type of Debridement: Excisional debridement Anesthesia Used: 4% Lidocaine Solution, 5% Lidocaine Gel Depth: Down to and including healthy tissue, in the subcutaneous layer, to muscle Percentage of wound debrided: 100 Instrument Used: 3mm curette Tissue Removed: Yellow slough, devitalized tissue Severity: Fat Layer Exposed Amount of bleeding with debridement: Mild Bleeding Controlled with: Compression and gauze Patient tolerated procedure well Assessment/Plan Active Problems (Last Reviewed 12/02/20 @ 19:[address] Juan Ramon Andrews MD) Wheelchair dependence (Chronic) Pressure ulcer of coccygeal region, stage 3 (Chronic) Morbid obesity (Chronic) Assessment: ulcers of left groin - healed. morbid obesity. Candidal intertrigo. Stage 3 pressure ulcer of coccyx. Stage 2 pressure ulcer left posterior thigh Plan: Pat's ulcer was evaluated today. Coccyx has improved minimally. I will have her continue to use Fibracol to the ulcer of her coccyx. She should continue to use ABD pads to her inguinal fold area to absorb moisture and prevent ulcers from developing due to the heavy drainage. She should change ABDs to left groin area 2-3 times/day as needed for soiling through of heavy drainage. Diflucan will be continued once weekly to treat candidal intertrigo. Will have her take this weekly to every other week due to sweating and heat and her body habitus and chronic yeast which are causing her to develop ulcers. Encouraged her to increase protein intake and offload the areas of her ulcers. Advised to call with any fever, chills, increased. drainage. Due to the chronic stage 3 pressure ulcer of her coccyx she would benefit from offloading mattress such as alternating pressure mattress. 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 F/u in 2 weeks. Follow-up sooner should new or concerning symptoms arise. Note: [employer] speech recognition plodding operator software was used to create portions of this document. Sound-alike and misspelled words, as well as other plodding operator errors may be contained in the documentation.
== END 2020-12-13 23:59 ==
LOC: WC 10:43
PROVIDERS: Family Provider Family Medicine; PCP Family Medicine; Referring Provider Family Medicine; Visit Provider Family Medicine
DX: L89.153 Pressure ulcer of sacral region, stage 3 (principal); B37.2 Candidiasis of skin and nail; E66.01 Morbid (severe) obesity due to excess calories; L89.892 Pressure ulcer of other site, stage 2
CPT/HCPCS: 11042

== ENCOUNTER → 2020-12-11 11:50 | Outpatient (CLI) | payer MEDICARE, OTHER, SELFPAY ==
[2020-11-13 00:17] VITALS: BMI 51.2
[2020-12-11 11:06] VITALS: BMI 46.5
== END ==
PROVIDERS: PCP Family Medicine; Referring Provider Family Medicine; Visit Provider Family Medicine
DX: N39.0 Urinary tract infection, site not specified (principal)
CPT/HCPCS: 87077; 87086; 87088; 87184; 87186

== ENCOUNTER → 2021-01-06 12:55 | Outpatient (CLI) | payer MEDICARE, OTHER, SELFPAY ==
[2020-12-25 11:30] VITALS: BMI 46.5
[2021-01-06 15:11] LABS: Absolute Lymphocyte Count 1.18 X10^3/uL (0.83-4.51); Absolute Neutrophil Count 2.9 X10^3/uL (2.0-7.7); Basophil# 0.05 X10^3/uL; Eosinophil# 0.13 X10^3/uL; Eosinophils% 2.7 % (0-5); Hematocrit 28.1 % (37-47); Hemoglobin 8.2 g/dL (12.0-15.0); Lymphocyte # 1.18 X10^3/ul (4.0); Lymphocyte % 24.4 % (19-41); Mean Corp Hgb Conc 29.2 g/dL (32-36); Mean Corpuscular Hgb 26.8 pg (27.0-32.0); Mean Corpuscular Volume 91.8 fL (81-99); Mean Platelet Vol. 9.6 fl (6.2-12.0); Monocyte# 0.59 X10^3/uL; Monocyte% 12.2 % (0-10); NRBC Flagged by Analyzer 0 % (0-5); Neutrophil # 2.87 X10^3/uL (2.7-7.7); Neutrophil % 59.3 % (47-70); Platelet Count 493 K/mm3 (150-450); RBC Distribution Width SD 54.7 fl (35.1-43.9); Red Blood Count 3.06 M/mm3 (4.2-5.4); White Blood Count 4.8 K/mm3 (4.4-11.0)
[2021-01-06 16:25] LABS: Anion Gap 7 (5-15); BUN 25 mg/dL (7-18); BUN/Creat Ratio 15.5 RATIO (10-20); Chloride 103 mmol/L (98-107); Creatinine, Serum 1.61 mg/dL (0.55-1.02); EST Glomerular Filtration Rate 33 mL/min (>60); Est Glom Filt Rate - Afr Amer 40 mL/min (>60); Glucose 79 mg/dL (74-106); Potassium 4.5 mmol/L (3.5-5.1); Sodium Level 134 mmol/L (136-145)
== END ==
PROVIDERS: PCP Family Medicine; Referring Provider Family Medicine; Visit Provider Family Medicine
DX: E11.22 Type 2 diabetes mellitus with diabetic chronic kidney disease (principal); N18.30 Chronic kidney disease, stage 3 unspecified; D63.1 Anemia in chronic kidney disease
CPT/HCPCS: 36415; 80048; 85025

== ENCOUNTER 2021-01-08 11:00 | Outpatient (RCR) | payer MEDICARE, OTHER, SELFPAY ==
[2020-12-14 00:18] VITALS: BP 102/52; PULSE 73; RESP 18; TEMP 36.4
[2020-12-25 11:30] VITALS: BP 102/53; PULSE 64; RESP 18; TEMP 36.1; BMI 46.5
--- NOTE | 2020-12-25 12:26 | PCM.WC.PN ---
(1) Wheelchair dependence Status: Chronic Code(s): Z99.3 - Dependence on wheelchair (2) Anemia Status: Chronic Qualifiers: Anemia type: unspecified type Qualified Code(s): D64.9 - Anemia, unspecified Code(s): D64.9 - Anemia, unspecified (3) Pressure ulcer of coccygeal region, stage 3 Status: Chronic Code(s): L89.153 - Pressure ulcer of sacral region, stage 3 (4) Morbid obesity Status: Chronic Code(s): E66.01 - Morbid (severe) obesity due to excess calories (5) Debility Status: Chronic Code(s): R53.81 - Other malaise Type of Wound Date of Service: 12/25/20 Chief Complaint: ulcers of left groin and abdomen, pressure ulcer of coccyx History of Wound: Samra is a 74 yo woman who presented to the wound center for ulcers of left groin and abdomen referred by wound nurse at [facility]. She was hospitalized at [facility] for urosepsis multiple times. She was on IV antibiotics of Meropenem and Vancomycin. She is morbidly obese and has problems with candidal intertrigo and has ulcers that open frequently for several years. She was using towels to keep moisture from accumulating under her skin folds but this has been ineffective. She started using InstaDry sheets since discharge from the hospital which has improved the moisture in her folds. She has been using nystatin powder as well. She had been using bacitracin to the ulcer of her abdomen. She has an indwelling suprapubic catheter that is changed monthly. She has heavy drainage from her ulcers. She is wheelchair bound and has an aid that helps her daily for a few hours per day. She denies fever or chills. In May 2019, she reports that she has a chronic ulcer of her coccyx area that was previously surgically debrided that comes and goes and has gotten worse since she was in the group home in early 2018. Progress of Wound: Samra is here for follow up of ulcer of coccyx. She is tolerating Fibracol dressings to coccyx. She uses ABD pads and a pillowcase to wick away moisture from her inguinal folds. She maintains improvement in erythema and the groin ulcers are healed. She has had mild improvement to coccyx ulcer. She is tolerating fibracol to her coccyx ulcer and has moderate to heavy drainage from this ulcer. Her mid-abdomen ulcer remains healed. TShe denies fever or chills, nausea, vomiting, or diarrhea. 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 - Physical Exam Vital Signs Temp Pulse Resp BP 96.9 F L 64 18 102/53 L 12/25/20 11:30 12/25/20 11:30 12/25/20 11:30 12/25/20 11:30 General: Alert, Oriented x3, Cooperative, No apparent distress HEENT: Atraumatic, Normocephalic Oral: Moist Mucosa Abdomen: Obese Extremities: Edema Skin: Ulcer/ Wound Wound Measurements and Assessment WC - Nurse 1 - General Ulcer Measurement Start: 12/25/20 12:00 Freq: Status: Active Protocol: Activity Type Activity Date Activity User E-Sign Co-Sign Detail Recorded Client Recorded Date Recorded By Document 12/25/20 11:30 MW [id number] 12/25/20 12:19 MW 12/25/20 11:30 Wound Center Nurse 1 [Ulcer Assessment] #3 Coccyx -Combined with other wound No -Current Size (cm) - Length 0.3 -Current Size (cm) - Width 0.9 -Current Size (cm) - Depth 0.3 -Total Square Cm 0.27 -Photo Taken No -Epithelialization None Present -Tunneling No -Undermining/Tunneling No -Circular Undermining No -Exudate Amt Small -Exudate Type Serosanguineous -Wound Margin Thickened -Granulation Amt Medium (34-66%) -Granulation Quality [place] -Slough/Fibrin Yes -Necrosis Amt Medium (34-66%) -Necrotic Tissue Type Adherent Slough -Structure Exposed N/A -Texture (Jessica-wound Skin Appearance) No Abnormality, Assessed -Moisture (Jessica-wound Skin Appearance Assessed, ) Maceration -Color (Jessica-wound Skin Appearance) No Abnormality, Assessed -Temperature (Jessica-wound Skin No Abnormality Appearance) (Pt Warm) -Tenderness on Palpation (Jessica-wound Yes Skin Appearance) -Ulcer Cleansing Rinsed/ Irrigated with Saline -Foul Odor after Cleansing No -Anesthetic Used 4% Lidocaine Solution [Edema Assessment] -Lower Limb Edema Present No WC - Nurse 2 - General Ulcer CM Notes Start: 12/25/20 12:00 Freq: Status: Active Protocol: Activity Type Activity Date Activity User E-Sign Co-Sign Detail Recorded Client Recorded Date Recorded By Document 12/25/20 11:40 MW [id number] 12/25/20 12:21 MW 12/25/20 11:40 Wound Center Nurse 2 [Procedure/Treatment] #4 L Posterior Thigh -Time 11:40 -Correct Patient Yes -Correct Side, Site, Position Yes -Correct Procedure Yes -Procedure Performed No -Post Debridement (cm) - Length 0 -Post Debridement (cm) - Width 0 -Post Debridement (cm) - Depth 0 -Total Square (Post) (cm) 0 -Wound/Ulcer Outcome Healed- Epithelialized #3 Coccyx -Time 11:40 -Correct Patient Yes -Correct Side, Site, Position Yes -Correct Procedure Yes -Procedure Performed Yes -Type of Procedure Debridement -Clinical Debridement Subcutaneous -Tissue Removed Subcutaneous -Post Debridement (cm) - Length 0.4 -Post Debridement (cm) - Width 0.8 -Post Debridement (cm) - Depth 0.3 -Total Square (Post) (cm) 0.32 -Area of Debridement (cm) - Length 0.4 -Area of Debridement (cm) - Width 0.8 -Total Square (Area) (cm) 0.32 -Tunneling No -Undermining/Tunneling No -Circular Undermining No -Wound/Ulcer Outcome Not Healed -Ulcer Cleansing Rinsed/ Irrigated with Saline -Foul Odor after Cleansing No -Bioengineered Tissue No -Bleeding Controlled with Pressure -Offloading No -Treatment Response Procedure Tolerated Well -Debridement - Subq, 1st 20sq cm Yes #1 left abd fold cluster -Time 11:40 -Correct Patient Yes -Correct Side, Site, Position Yes -Correct Procedure Yes -Procedure Performed No -Post Debridement (cm) - Length 0 -Post Debridement (cm) - Width 0 -Post Debridement (cm) - Depth 0 -Total Square (Post) (cm) 0 -Wound/Ulcer Outcome Healed- Epithelialized [See Physician Procedure note for Specifics] WC - Nurse 3 - General Ulcer D/C NN Start: 12/25/20 12:00 Freq: Status: Active Protocol: Activity Type Activity Date Activity User E-Sign Co-Sign Detail Recorded Client Recorded Date Recorded By Document 12/25/20 11:50 MW [id number] 12/25/20 12:22 MW 02/12/21 11:50 Wound Care Nurse 3 [Wound Dressing] #3 Coccyx -Ulcer Cleansing Rinsed/ Irrigated with Saline -Foul Odor after Cleansing No -Negative Pressure Wound Therapy N/A -Other Dressing fibracol plus -Primary Dressing Covered/Secured Dry Gauze, with Secured with Tape [Post Procedure Tolerated] -Treatment Response Procedure Tolerated Well Teaching: Wound Center [Wound Center Education] (Items with an * have Printed Materials Available- Please identify what is given to patient under the Teaching materials given to patient and caregiver Section. Dressing Your Wound -Person Taught Patient -Teaching Method Discussion -Response to teaching Verbalize understanding WC - Visit Discharge [Visit Discharge Information] -Discharge Condition Stable -Ambulatory Status Wheelchair -Transportation Private Auto -Accompanied by sister -Clinical Summary of Care Provided Yes Psych/Mental Status: Normal Affect, Appropriate Debridement Note Post-Debridement Measurements/Treatment WC - Nurse 2 - General Ulcer CM Notes Start: 12/25/20 12:00 Freq: Status: Active Protocol: Activity Type Activity Date Activity User E-Sign Co-Sign Detail Recorded Client Recorded Date Recorded By Document 12/25/20 11:40 MW [id number] 12/25/20 12:21 MW 12/25/20 11:40 Wound Center Nurse 2 #4 L Posterior Thigh -Time 11:40 -Correct Patient Yes -Correct Side, Site, Position Yes -Correct Procedure Yes -Procedure Performed No -Post Debridement (cm) - Length 0 -Post Debridement (cm) - Width 0 -Post Debridement (cm) - Depth 0 -Total Square (Post) (cm) 0 -Wound/Ulcer Outcome Healed- Epithelialized #3 Coccyx -Time 11:40 -Correct Patient Yes -Correct Side, Site, Position Yes -Correct Procedure Yes -Procedure Performed Yes -Type of Procedure Debridement -Clinical Debridement Subcutaneous -Tissue Removed Subcutaneous -Post Debridement (cm) - Length 0.4 -Post Debridement (cm) - Width 0.8 -Post Debridement (cm) - Depth 0.3 -Total Square (Post) (cm) 0.32 -Area of Debridement (cm) - Length 0.4 -Area of Debridement (cm) - Width 0.8 -Total Square (Area) (cm) 0.32 -Tunneling No -Undermining/Tunneling No -Circular Undermining No -Wound/Ulcer Outcome Not Healed -Ulcer Cleansing Rinsed/ Irrigated with Saline -Foul Odor after Cleansing No -Bioengineered Tissue No -Bleeding Controlled with Pressure -Offloading No -Treatment Response Procedure Tolerated Well -Debridement - Subq, 1st 20sq cm Yes #1 left abd fold cluster -Time 11:40 -Correct Patient Yes -Correct Side, Site, Position Yes -Correct Procedure Yes -Procedure Performed No -Post Debridement (cm) - Length 0 -Post Debridement (cm) - Width 0 -Post Debridement (cm) - Depth 0 -Total Square (Post) (cm) 0 -Wound/Ulcer Outcome Healed- Epithelialized WC - Nurse 3 - General Ulcer D/C NN Start: 12/25/20 12:00 Freq: Status: Active Protocol: Activity Type Activity Date Activity User E-Sign Co-Sign Detail Recorded Client Recorded Date Recorded By Document 12/25/20 11:50 MW [id number] 12/25/20 12:22 MW 12/25/20 11:50 Wound Care Nurse 3 #3 Coccyx -Ulcer Cleansing Rinsed/ Irrigated with Saline -Foul Odor after Cleansing No -Negative Pressure Wound Therapy N/A -Other Dressing fibracol plus -Primary Dressing Covered/Secured with Dry Gauze, Secured with Tape Treatment Response Procedure Tolerated Well Teaching: Wound Center Dressing Your Wound -Person Taught Patient -Teaching Method Discussion -Response to teaching Verbalize understanding WC - Visit Discharge Discharge Condition Stable Ambulatory Status Wheelchair Transportation Private Auto Accompanied by sister Clinical Summary of Care Provided Yes Wound debrided: coccyx Laterality: Not Applicable Wound Grade/Stage: Stage III Type of Debridement: Excisional debridement Anesthesia Used: 5% Lidocaine Gel Depth: Down to and including healthy tissue, in the subcutaneous layer Percentage of wound debrided: 100 Instrument Used: 3mm curette Tissue Removed: Yellow slough, devitalized tissue Severity: Fat Layer Exposed Amount of bleeding with debridement: Mild Bleeding Controlled with: Compression and gauze Patient tolerated procedure well Assessment/Plan Assessment: ulcers of left groin - healed. morbid obesity. Candidal intertrigo. Stage 3 pressure ulcer of coccyx. Stage 2 pressure ulcer left posterior thigh - healed Plan: Pat's ulcer was evaluated today. Coccyx has improved minimally. I will have her continue to use Fibracol to the ulcer of her coccyx. She should continue to use ABD pads to her inguinal fold area to absorb moisture and prevent ulcers from developing due to the heavy drainage. She should change ABDs to left groin area 2-3 times/day as needed for soiling through of heavy drainage. Diflucan will be continued once weekly to treat candidal intertrigo. Will have her take this weekly to every other week due to sweating and heat and her body habitus and chronic yeast which are causing her to develop ulcers. Encouraged her to increase protein intake and offload the areas of her ulcers. Advised to call with any fever, chills, increased. drainage. Due to the chronic stage 3 pressure ulcer of her coccyx she would benefit from offloading mattress such as alternating pressure mattress. 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 F/u in 2 weeks. Follow-up sooner should new or concerning symptoms arise. Note: [employer] speech recognition insurance service representative software was used to create portions of this document. Sound-alike and misspelled words, as well as other insurance service representative errors may be contained in the documentation.
[2021-01-08 11:16] VITALS: BP 113/57; PULSE 83; RESP 18; TEMP 36.1; BMI 46.5
--- NOTE | 2021-01-08 15:11 | PCM.WC.PN ---
(1) Wheelchair dependence Status: Chronic Code(s): Z99.3 - Dependence on wheelchair (2) Anemia Status: Chronic Qualifiers: Anemia type: unspecified type Qualified Code(s): D64.9 - Anemia, unspecified Code(s): D64.9 - Anemia, unspecified (3) Pressure ulcer of coccygeal region, stage 3 Status: Chronic Code(s): L89.153 - Pressure ulcer of sacral region, stage 3 (4) Morbid obesity Status: Chronic Code(s): E66.01 - Morbid (severe) obesity due to excess calories (5) Debility Status: Chronic Code(s): R53.81 - Other malaise Type of Wound Date of Service: 01/08/21 Chief Complaint: ulcers of left groin and abdomen, pressure ulcer of coccyx History of Wound: Samra is a 74 yo woman who presented to the wound center for ulcers of left groin and abdomen referred by wound nurse at [facility]. She was hospitalized at [facility] for urosepsis multiple times. She was on IV antibiotics of Meropenem and Vancomycin. She is morbidly obese and has problems with candidal intertrigo and has ulcers that open frequently for several years. She was using towels to keep moisture from accumulating under her skin folds but this has been ineffective. She started using InstaDry sheets since discharge from the hospital which has improved the moisture in her folds. She has been using nystatin powder as well. She had been using bacitracin to the ulcer of her abdomen. She has an indwelling suprapubic catheter that is changed monthly. She has heavy drainage from her ulcers. She is wheelchair bound and has an aid that helps her daily for a few hours per day. She denies fever or chills. In May 2019, she reports that she has a chronic ulcer of her coccyx area that was previously surgically debrided that comes and goes and has gotten worse since she was in the residential in early 2018. Progress of Wound: Samra is here for follow up of ulcer of coccyx. She is tolerating Fibracol dressings to coccyx. She uses ABD pads and a pillowcase to wick away moisture from her inguinal folds. She maintains improvement in erythema and the groin ulcers are healed. She has had mild improvement to coccyx ulcer. She is tolerating fibracol to her coccyx ulcer and has moderate to heavy drainage from this ulcer. Her mid-abdomen ulcer remains healed. She denies fever or chills, nausea, vomiting, or diarrhea. 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 - Physical Exam Vital Signs Temp Pulse Resp BP 97 F L 83 18 113/57 L 01/08/21 11:16 01/08/21 11:16 01/08/21 11:16 01/08/21 11:16 General: Alert, Oriented x3, Cooperative, No apparent distress HEENT: Atraumatic, Normocephalic Oral: Moist Mucosa Neck: Supple Lungs: Clear to auscultation Abdomen: Obese Extremities: Edema Skin: Ulcer/ Wound Wound Measurements and Assessment WC - Nurse 1 - General Ulcer Measurement Start: 12/25/20 12:00 Freq: Status: Active Protocol: Activity Type Activity Date Activity User E-Sign Co-Sign Detail Recorded Client Recorded Date Recorded By Document 01/08/21 11:16 [id number] 01/08/21 11:18 RB 01/08/21 11:16 Wound Center Nurse 1 [Ulcer Assessment] #3 Coccyx -Combined with other wound No -Current Size (cm) - Length 0.8 -Current Size (cm) - Width 2.1 -Current Size (cm) - Depth 0.4 -Total Square Cm 1.68 -Tunneling No -Undermining/Tunneling Yes -Undermining/Tunneling Starts (O' 2 clock) -Undermining/Tunneling Ends (O'clock) 4 -Maximum Distance (cm) 0.8 -Circular Undermining No -Exudate Amt Small -Exudate Type Serosanguineous -Wound Margin Thickened -Granulation Amt Medium (34-66%) -Granulation Quality Cotter -Slough/Fibrin Yes -Necrosis Amt Small (1-33%) -Necrotic Tissue Type Adherent Slough -Structure Exposed N/A -Texture (Jessica-wound Skin Appearance) Excoriation -Moisture (Jessica-wound Skin Appearance Assessed, ) Maceration -Color (Jessica-wound Skin Appearance) Assessed, Erythema -Temperature (Jessica-wound Skin No Abnormality Appearance) (Pt Warm) -Tenderness on Palpation (Jessica-wound No Skin Appearance) -Ulcer Cleansing Wound Cleanser -Foul Odor after Cleansing No -Anesthetic Used 5% Lidocaine Gel ÁLVARO - Nurse 2 - General Ulcer CM Notes Start: 12/25/20 12:00 Freq: Status: Active Protocol: Activity Type Activity Date Activity User E-Sign Co-Sign Detail Recorded Client Recorded Date Recorded By Document 01/08/21 11:53 MW [id number] 01/08/21 12:01 MW 01/08/21 11:53 Wound Center Nurse 2 [Procedure/Treatment] -Time 11:54 -Correct Patient Yes -Correct Side, Site, Position Yes -Correct Procedure Yes -Procedure Performed Yes -Type of Procedure Debridement -Clinical Debridement Subcutaneous -Tissue Removed Subcutaneous -Post Debridement (cm) - Length 0.4 -Post Debridement (cm) - Width 0.2 -Post Debridement (cm) - Depth 0.2 -Total Square (Post) (cm) 0.08 -Area of Debridement (cm) - Length 0.4 -Area of Debridement (cm) - Width 0.2 -Total Square (Area) (cm) 0.08 -Tunneling No -Undermining/Tunneling No -Circular Undermining No -Wound/Ulcer Outcome Not Healed -Ulcer Cleansing Rinsed/ Irrigated with Saline -Foul Odor after Cleansing No -Bioengineered Tissue No -Bleeding Controlled with Pressure -Offloading No -Treatment Response Procedure Tolerated Well -Debridement - Subq, 1st 20sq cm Yes [See Physician Procedure note for Specifics] Pain Scale: 0-10 Numeric [Pain] -Is Patient Pain Free? Yes ÁLVARO - Nurse 3 - General Ulcer D/C NN Start: 12/25/20 12:00 Freq: Status: Active Protocol: Activity Type Activity Date Activity User E-Sign Co-Sign Detail Recorded Client Recorded Date Recorded By Document 01/08/21 12:01 MW [id number] 01/08/21 12:02 MW 01/08/21 12:01 Wound Care Nurse 3 [Wound Dressing] #3 Coccyx -Ulcer Cleansing Rinsed/ Irrigated with Saline -Foul Odor after Cleansing No -Negative Pressure Wound Therapy N/A -Other Dressing Fibracol Plus -Primary Dressing Covered/Secured Dry Gauze, with Secured with Tape [Post Procedure Tolerated] -Treatment Response Procedure Tolerated Well Teaching: Wound Center [Wound Center Education] (Items with an * have Printed Materials Available- Please identify what is given to patient under the Teaching materials given to patient and caregiver Section. Dressing Your Wound -Person Taught Patient -Teaching Method Discussion, Demonstration -Response to teaching Verbalize understanding WC - Visit Discharge [Visit Discharge Information] -Discharge Condition Stable -Ambulatory Status Wheelchair -Transportation Private Auto -Accompanied by sister -Medication Reconcilliation completed No & provided to patient/care provider -Clinical Summary of Care Provided Yes Psych/Mental Status: Normal Affect, Appropriate Debridement Note Post-Debridement Measurements/Treatment WC - Nurse 2 - General Ulcer CM Notes Start: 12/25/20 12:00 Freq: Status: Active Protocol: Activity Type Activity Date Activity User E-Sign Co-Sign Detail Recorded Client Recorded Date Recorded By Document 12/25/20 11:40 MW [id number] 12/25/20 12:21 MW Document 01/08/21 11:53 MW [id number] 01/08/21 12:01 MW 12/25/20 01/08/21 11:40 11:53 Wound Center Nurse 2 #4 L Posterior Thigh -Time 11:40 -Correct Patient Yes -Correct Side, Site, Position Yes -Correct Procedure Yes -Procedure Performed No -Post Debridement (cm) - Length 0 -Post Debridement (cm) - Width 0 -Post Debridement (cm) - Depth 0 -Total Square (Post) (cm) 0 -Wound/Ulcer Outcome Healed- Epithelialized #3 Coccyx -Time 11:40 11:54 -Correct Patient Yes Yes -Correct Side, Site, Position Yes Yes -Correct Procedure Yes Yes -Procedure Performed Yes Yes -Type of Procedure Debridement Debridement -Clinical Debridement Subcutaneous Subcutaneous -Tissue Removed Subcutaneous Subcutaneous -Post Debridement (cm) - Length 0.4 0.4 -Post Debridement (cm) - Width 0.8 0.2 -Post Debridement (cm) - Depth 0.3 0.2 -Total Square (Post) (cm) 0.32 0.08 -Area of Debridement (cm) - Length 0.4 0.4 -Area of Debridement (cm) - Width 0.8 0.2 -Total Square (Area) (cm) 0.32 0.08 -Tunneling No No -Undermining/Tunneling No No -Circular Undermining No No -Wound/Ulcer Outcome Not Healed Not Healed -Ulcer Cleansing Rinsed/ Rinsed/ Irrigated with Irrigated with Saline Saline -Foul Odor after Cleansing No No -Bioengineered Tissue No No -Bleeding Controlled with Pressure Pressure -Offloading No No -Treatment Response Procedure Procedure Tolerated Well Tolerated Well -Debridement - Subq, 1st 20sq cm Yes Yes #1 left abd fold cluster -Time 11:40 -Correct Patient Yes -Correct Side, Site, Position Yes -Correct Procedure Yes -Procedure Performed No -Post Debridement (cm) - Length 0 -Post Debridement (cm) - Width 0 -Post Debridement (cm) - Depth 0 -Total Square (Post) (cm) 0 -Wound/Ulcer Outcome Healed- Epithelialized Pain Scale: 0-10 Numeric Is Patient Pain Free? Yes - Nurse 3 - General Ulcer D/C NN Start: 12/25/20 12:00 Freq: Status: Active Protocol: Activity Type Activity Date Activity User E-Sign Co-Sign Detail Recorded Client Recorded Date Recorded By Document 12/25/20 11:50 MW [id number] 12/25/20 12:22 MW Document 01/08/21 12:01 MW [id number] 01/08/21 12:02 MW 12/25/20 01/08/21 11:50 12:01 Wound Care Nurse 3 #3 Coccyx -Ulcer Cleansing Rinsed/ Rinsed/ Irrigated with Irrigated with Saline Saline -Foul Odor after Cleansing No No -Negative Pressure Wound Therapy N/A N/A -Other Dressing fibracol plus Fibracol Plus -Primary Dressing Covered/Secured with Dry Gauze, Dry Gauze, Secured with Secured with Tape Tape Treatment Response Procedure Procedure Tolerated Well Tolerated Well Teaching: Wound Center Dressing Your Wound -Person Taught Patient Patient -Teaching Method Discussion Discussion, Demonstration -Response to teaching Verbalize Verbalize understanding understanding WC - Visit Discharge Discharge Condition Stable Stable Ambulatory Status Wheelchair Wheelchair Transportation Private Auto Private Auto Accompanied by sister sister Medication Reconcilliation completed & No provided to patient/care provider Clinical Summary of Care Provided Yes Yes Wound debrided: coccyx Laterality: Not Applicable Wound Grade/Stage: Stage III Type of Debridement: Excisional debridement Anesthesia Used: 4% Lidocaine Solution, 5% Lidocaine Gel Depth: Down to and including healthy tissue, in the subcutaneous layer Percentage of wound debrided: 100 Instrument Used: 3mm curette Tissue Removed: Yellow slough, devitalized tissue Severity: Fat Layer Exposed Amount of bleeding with debridement: Mild Bleeding Controlled with: Compression and gauze Patient tolerated procedure well Assessment/Plan Active Problems (Last Reviewed 12/02/20 @ 19:[address] Juan Ramon Andrews MD) Wheelchair dependence (Chronic) Anemia (Chronic) Pressure ulcer of coccygeal region, stage 3 (Chronic) Morbid obesity (Chronic) Debility (Chronic) Assessment: ulcers of left groin - healed. morbid obesity. Candidal intertrigo. Stage 3 pressure ulcer of coccyx. Stage 2 pressure ulcer left posterior thigh - healed Plan: Samra's ulcer was evaluated today. Coccyx has improved minimally. I will have her continue to use Fibracol to the ulcer of her coccyx. She should continue to use ABD pads to her inguinal fold area to absorb moisture and prevent ulcers from developing due to the heavy drainage. She should change ABDs to left groin area 2-3 times/day as needed for soiling through of heavy drainage. Diflucan will be continued once weekly to treat candidal intertrigo. Will have her take this weekly to every other week due to sweating and heat and her body habitus and chronic yeast which are causing her to develop ulcers. Encouraged her to increase protein intake and offload the areas of her ulcers. Advised to call with any fever, chills, increased. drainage. Due to the chronic stage 3 pressure ulcer of her coccyx she would benefit from offloading mattress such as alternating pressure mattress. 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 F/u in 2 weeks. Follow-up sooner should new or concerning symptoms arise. Note: [employer] speech recognition customer marketing assistant software was used to create portions of this document. Sound-alike and misspelled words, as well as other customer marketing assistant errors may be contained in the documentation.
== END 2021-01-10 23:59 ==
LOC: WC 11:00
PROVIDERS: Family Provider Family Medicine; PCP Family Medicine; Referring Provider Family Medicine; Visit Provider Family Medicine
DX: L89.153 Pressure ulcer of sacral region, stage 3 (principal); B37.2 Candidiasis of skin and nail; E66.01 Morbid (severe) obesity due to excess calories; Z99.3 Dependence on wheelchair; Z93.6 Other artificial openings of urinary tract status
CPT/HCPCS: 11042

== ENCOUNTER 2021-01-19 15:46 | Outpatient (RCR) | payer MEDICARE, OTHER, SELFPAY ==
[2021-01-19] MEDS: COVID-19 VACC, MRNA(PFIZER)/PF 30 MCG/0.3 ML SYRINGE IM (14:43)
[2021-02-09] MEDS: COVID-19 VACC, MRNA(PFIZER)/PF 30 MCG/0.3 ML SYRINGE IM (10:49)
== END 2021-04-20 23:59 ==
LOC: IMMUN 15:46
PROVIDERS: PCP Family Medicine; Visit Provider Family Medicine
DX: Z23 Encounter for immunization (principal)
CPT/HCPCS: 0001A; 0002A; 91300

== ENCOUNTER 2021-01-25 17:39 | Emergency (ER) | payer MEDICARE, OTHER, SELFPAY ==
[2021-01-22 11:11] VITALS: BMI 46.5
[2021-01-25 17:40] VITALS: BP 131/101; PULSE 80; RESP 11; TEMP 35.9; O2SAT 93; BMI 46.0
[2021-01-25 17:47] VITALS: O2SAT 79
[2021-01-25 18:12] LABS: Absolute Lymphocyte Count 1.24 X10^3/uL (0.83-4.51); Absolute Neutrophil Count 3.8 X10^3/uL (2.0-7.7); Basophil# 0.05 X10^3/uL; Basophil% 0.8 % (0-1); Eosinophil# 0.12 X10^3/uL; Hematocrit 25.4 % (37-47); Hemoglobin 7.3 g/dL (12.0-15.0); Lymphocyte # 1.24 X10^3/ul (4.0); Lymphocyte % 21.1 % (19-41); Mean Corp Hgb Conc 28.7 g/dL (32-36); Mean Corpuscular Hgb 25.6 pg (27.0-32.0); Mean Corpuscular Volume 89.1 fL (81-99); Mean Platelet Vol. 8.7 fl (6.2-12.0); Monocyte# 0.62 X10^3/uL; Monocyte% 10.5 % (0-10); NRBC Flagged by Analyzer 0 % (0-5); Neutrophil # 3.83 X10^3/uL (2.7-7.7); Neutrophil % 65.1 % (47-70); Platelet Count 471 K/mm3 (150-450); RBC Distribution Width CV 15.8 % (11.6-14.6); Red Blood Count 2.85 M/mm3 (4.2-5.4); White Blood Count 5.9 K/mm3 (4.4-11.0)
--- NOTE | 2021-01-25 18:24 | ED.DCSUM_ITS ---
History of Present Illness Chief Complaint: Alt LOC Informant: Patient, Family Narrative: Patient is a 75-year-old female who presents to the emergency department from home for decreased oral intake. The sister is very concerned because she has a jug of water at bedside and it has not been drinking from all day. He states that she also did not make any coffee today either. Upon arrival to the emergency department the patient has no complaints. She states she overall feels well. She denies any headache, vision changes. No chest pain or shortness of breath. No abdominal pain. No nausea/vomiting. No change in bowel movements. She does have a chronic indwelling Henry catheter. She has a known decubitus ulcer that was just seen by her PCP on Monday that she does not want examined at this time. The sister wanted her to get checked out as she thought that she would be dehydrated. Past Medical History - Allergies and Home Meds Allergies/Adverse Reactions: Allergies adhesive tape Allergy (Verified 11/27/20 17:20) blisters Influenza Virus Vaccines Allergy (Verified 11/27/20 17:20) shortness of breath/severe wheezing iron Allergy (Verified 11/27/20 17:20) from IV form chest pressure and heart palpitations Sulfa (Sulfonamide Antibiotics) Allergy (Verified 11/27/20 17:20) Shortness of breath bactrim does not work for her-per pcp paperwork meloxicam [From Mobic] Adverse Reaction (Verified 11/27/20 17:20) gi upset seasonal allergies Allergy (Uncoded 11/27/20 17:20) Other Primary Care Physician: Colby Valenzuela DO [Primary Care Provider] - 2 Days Prior records reviewed: Yes Past Medical History: - - A. fib VITA hyperlipidemia, cystitis with sepsis Surgical History: cholecystectomy, hysterectomy, - - Suprapubic catheter placement. Smoking Status: Former smoker - Family History Maternal Family History: Reports: Diabetes, Heart Disease - Her father had a CABG and CHF Paternal Family History: Reports: Heart Disease Review of Systems All systems negative except as indicated General: Denies: Chills, Fever, Sweats Eyes: Denies: Visual changes - bilaterally, Diplopia ENT: Denies: Rhinorrhea, Sore throat Cardiovascular: Denies: Chest pain, Palpitations Respiratory: Denies: Dyspnea, Cough, Dyspnea on exertion Gastrointestinal: Denies: Abdominal pain, Nausea, Vomiting, Diarrhea, Melena, Hematochezia Genitourinary: Denies: Dysuria, Hematuria, Frequency Musculoskeletal: Denies: Back pain, Extremity Pain Skin: Denies: Rash, Wounds Neurological: Denies: Headache, Weakness, Numbness Physical Exam Vital Signs/Narrative: Vital Signs Temp Pulse Resp BP Pulse Ox 01/25/21 17:47 79 01/25/21 17:40 96.7 F L 80 11 L 131/101 H 93 Inital Vital Signs reviewed: Yes General: Obese, No Acute Distress Head: Normocephalic, Atraumatic Eyes: Perrl, EOMI ENT: Moist mucous membranes, No rhinorrhea Neck: Supple, Nontender Cardiovascular: Regular rate, Regular rhythm, No murmurs Respiratory: No distress, CTA bilaterally, Chest nontender Abdomen: Soft, Nontender, Nondistended, Normal bowel sounds Back: Nontender, Normal Inspection Extremities: Nontender, No edema Skin: Normal color, No rash Neurological: Alert, Oriented x3, Cranial nerves II-XII grossly intact, Normal Strength, Normal Sensation Psychological: Normal affect, Normal Mood Diagnostic/Tx/Re-eval - Medical Decision Making Patient presents to the ED for concern that she is dehydrated. She has not been eating or drinking today. Upon arrival to the ED she has no complaints. Her vital signs are within normal limits except for mild hypertension. She is in no acute distress. The sister is very concerned so we will check basic lab work to evaluate electrolyte status. We will make sure patient tolerates oral fluids. Patient found to be anemic. Reviewing this to her previous lab work it is not far off of her baseline. She does have gross hematuria in her Henry bag. The patient and the patient's sister states that this is a chronic issue for her and are urologist already is aware of this. She does have elevation of her creatinine as well which appears to be at her baseline. Her white blood cell count within normal limits. She is able to tolerate oral fluids at bedside. She does not have any complaints throughout ED stay. She is going to be in co ntact with her urologist about the hematuria and anemia. Return precautions are reviewed with her. She will be discharged home in stable condition. All questions were answered. ED Disposition - Plan for ED Patient: Disposition: Home or Assisted Living Diagnosis: Decreased oral intake, Anemia, Gross hematuria Instructions: ED Anemia, Type Not Specified (Adult), ED Hematuria Referrals: Colby Valenzuela DO [Primary Care Provider] - 2 Days Additional Instructions: Please call your urologist and discuss with him your hematuria. Hemoglobin is at 7.3. If you develop any symptoms of anemia including lightheadedness, chest pain or shortness of breath please return to the emergency department immediately.
[2021-01-25 18:33] LABS: Anion Gap 4 (5-15); BUN 21 mg/dL (7-18); Calcium,Total 8.8 mg/dL (8.5-10.1); Chloride 105 mmol/L (98-107); Creatinine, Serum 1.62 mg/dL (0.55-1.02); EST Glomerular Filtration Rate 33 mL/min (>60); Est Glom Filt Rate - Afr Amer 40 mL/min (>60); Estimated Creatinine Clearance 28.52 ml/min; Glucose 110 mg/dL (74-106); Sodium Level 137 mmol/L (136-145)
[2021-01-25 19:43] VITALS: BP 120/99; PULSE 88; RESP 16
== END 2021-01-25 20:33 | disposition home or self-care (01) ==
PROVIDERS: Emergency Provider Emergency Medicine; PCP Family Medicine
DX: D64.9 Anemia, unspecified (principal); R31.0 Gross hematuria; E78.5 Hyperlipidemia, unspecified; Z90.710 Acquired absence of both cervix and uterus; Z90.49 Acquired absence of other specified parts of digestive tract; Z87.891 Personal history of nicotine dependence
CPT/HCPCS: 36415; 80048; 84484; 85025; 99285; A4216

== ENCOUNTER 2021-02-05 11:30 | Outpatient (RCR) | payer MEDICARE, OTHER, SELFPAY ==
[2021-01-11 00:17] VITALS: BP 113/57; PULSE 83; RESP 18; TEMP 36.1
[2021-01-22 11:11] VITALS: BP 106/49; PULSE 75; RESP 16; TEMP 35.5; BMI 46.5
--- NOTE | 2021-01-22 12:48 | PCM.WC.PN ---
(1) Pressure ulcer of coccygeal region, stage 3 Status: Chronic Code(s): L89.153 - Pressure ulcer of sacral region, stage 3 (2) Morbid obesity Status: Chronic Code(s): E66.01 - Morbid (severe) obesity due to excess calories (3) Debility Status: Chronic Code(s): R53.81 - Other malaise Type of Wound Date of Service: 01/22/21 Chief Complaint: ulcers of left groin and abdomen, pressure ulcer of coccyx History of Wound: Samra is a 74 yo woman who presented to the wound center for ulcers of left groin and abdomen referred by wound nurse at [facility]. She was hospitalized at [facility] for urosepsis multiple times. She was on IV antibiotics of Meropenem and Vancomycin. She is morbidly obese and has problems with candidal intertrigo and has ulcers that open frequently for several years. She was using towels to keep moisture from accumulating under her skin folds but this has been ineffective. She started using InstaDry sheets since discharge from the hospital which has improved the moisture in her folds. She has been using nystatin powder as well. She had been using bacitracin to the ulcer of her abdomen. She has an indwelling suprapubic catheter that is changed monthly. She has heavy drainage from her ulcers. She is wheelchair bound and has an aid that helps her daily for a few hours per day. She denies fever or chills. In May 2019, she reports that she has a chronic ulcer of her coccyx area that was previously surgically debrided that comes and goes and has gotten worse since she was in the [facility] in early 2018. Progress of Wound: Samra is here for follow up of ulcer of coccyx. She is tolerating Fibracol dressings to coccyx. She uses ABD pads and a pillowcase to wick away moisture from her inguinal folds. She maintains improvement in erythema and the groin ulcers are healed. She has had mild improvement to coccyx ulcer. She is tolerating fibracol to her coccyx ulcer and has moderate to heavy drainage from this ulcer. Her mid-abdomen ulcer remains healed. She denies fever or chills, nausea, vomiting, or diarrhea. 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 - Physical Exam Vital Signs Temp Pulse Resp BP 96 F L 75 16 106/49 L 01/22/21 11:11 01/22/21 11:11 01/22/21 11:11 01/22/21 11:11 General: Alert, Oriented x3, Cooperative, No apparent distress HEENT: Atraumatic, Normocephalic Oral: Moist Mucosa Abdomen: Soft, Non Tender, Obese Extremities: Edema Skin: Ulcer/ Wound Wound Measurements and Assessment WC - Nurse 1 - General Ulcer Measurement Start: 01/22/21 11:11 Freq: Status: Active Protocol: Activity Type Activity Date Activity User E-Sign Co-Sign Detail Recorded Client Recorded Date Recorded By Document 01/22/21 11:11 BM [id number] 01/22/21 11:16 BMF 01/22/21 11:11 Wound Center Nurse 1 [Ulcer Assessment] #3 Coccyx -Combined with other wound No -Current Size (cm) - Length 0.4 -Current Size (cm) - Width 1.5 -Current Size (cm) - Depth 0.5 -Total Square Cm 0.60 -Photo Taken No -Epithelialization None Present -Tunneling No -Undermining/Tunneling No -Circular Undermining No -Exudate Amt Small -Exudate Type Serosanguineous -Wound Margin Thickened & Rolled Under -Granulation Amt Large (67-100%) -Granulation Quality Red -Slough/Fibrin Yes -Necrosis Amt Small (1-33%) -Necrotic Tissue Type Adherent Slough -Texture (Jessica-wound Skin Appearance) Assessed, Scarring -Moisture (Jessica-wound Skin Appearance Assessed, ) Maceration,Dry/ Scaly -Color (Jessica-wound Skin Appearance) Assessed, Erythema,Palor -Temperature (Jessica-wound Skin No Abnormality Appearance) (Pt Warm) -Tenderness on Palpation (Jessica-wound Yes Skin Appearance) -Ulcer Cleansing Rinsed/ Irrigated with Saline -Foul Odor after Cleansing No -Anesthetic Used 4% Lidocaine Solution WC - Nurse 2 - General Ulcer CM Notes Start: 01/22/21 11:11 Freq: Status: Active Protocol: Activity Type Activity Date Activity User E-Sign Co-Sign Detail Recorded Client Recorded Date Recorded By Document 01/22/21 11:29 MW [id number] 01/22/21 11:30 MW 01/22/21 11:29 Wound Center Nurse 2 [Procedure/Treatment] -Time 11:29 -Correct Patient Yes -Correct Side, Site, Position Yes -Correct Procedure Yes -Procedure Performed Yes -Type of Procedure Debridement -Clinical Debridement Subcutaneous -Tissue Removed Subcutaneous -Post Debridement (cm) - Length 0.3 -Post Debridement (cm) - Width 1.0 -Post Debridement (cm) - Depth 0.2 -Total Square (Post) (cm) 0.30 -Area of Debridement (cm) - Length 0.3 -Area of Debridement (cm) - Width 1.0 -Total Square (Area) (cm) 0.30 -Tunneling No -Undermining/Tunneling No -Circular Undermining No -Wound/Ulcer Outcome Not Healed -Ulcer Cleansing Rinsed/ Irrigated with Saline -Foul Odor after Cleansing No -Bioengineered Tissue No -Bleeding Controlled with Pressure -Offloading No -Treatment Response Procedure Tolerated Well -Debridement - Subq, 1st 20sq cm Yes [See Physician Procedure note for Specifics] Pain Scale: 0-10 Numeric [Pain] -Is Patient Pain Free? Yes - Nurse 3 - General Ulcer D/C NN Start: 01/22/21 11:11 Freq: Status: Active Protocol: Activity Type Activity Date Activity User E-Sign Co-Sign Detail Recorded Client Recorded Date Recorded By Document 01/22/21 11:30 MW [id number] 01/22/21 11:30 MW 01/22/21 11:30 Wound Care Nurse 3 [Wound Dressing] #3 Coccyx -Ulcer Cleansing Rinsed/ Irrigated with Saline -Foul Odor after Cleansing No -Negative Pressure Wound Therapy N/A -Other Dressing fibracol plus -Primary Dressing Covered/Secured Dry Gauze, with Secured with Tape [Post Procedure Tolerated] -Treatment Response Procedure Tolerated Well Pain Scale: 0-10 Numeric [Pain] -Is Patient Pain Free? Yes Teaching: Wound Center [Wound Center Education] (Items with an * have Printed Materials Available- Please identify what is given to patient under the Teaching materials given to patient and caregiver Section. Dressing Your Wound -Person Taught Patient -Teaching Method Discussion, Demonstration -Response to teaching Verbalize understanding WC - Visit Discharge [Visit Discharge Information] -Discharge Condition Stable -Ambulatory Status Wheelchair -Transportation Private Auto -Accompanied by sister -Medication Reconcilliation completed No & provided to patient/care provider -Clinical Summary of Care Provided Yes Psych/Mental Status: Normal Affect, Appropriate Debridement Note Post-Debridement Measurements/Treatment WC - Nurse 2 - General Ulcer CM Notes Start: 01/22/21 11:11 Freq: Status: Active Protocol: Activity Type Activity Date Activity User E-Sign Co-Sign Detail Recorded Client Recorded Date Recorded By Document 01/22/21 11:29 MW [id number] 01/22/21 11:30 MW 01/22/21 11:29 Wound Center Nurse 2 #3 Coccyx -Time 11:29 -Correct Patient Yes -Correct Side, Site, Position Yes -Correct Procedure Yes -Procedure Performed Yes -Type of Procedure Debridement -Clinical Debridement Subcutaneous -Tissue Removed Subcutaneous -Post Debridement (cm) - Length 0.3 -Post Debridement (cm) - Width 1.0 -Post Debridement (cm) - Depth 0.2 -Total Square (Post) (cm) 0.30 -Area of Debridement (cm) - Length 0.3 -Area of Debridement (cm) - Width 1.0 -Total Square (Area) (cm) 0.30 -Tunneling No -Undermining/Tunneling No -Circular Undermining No -Wound/Ulcer Outcome Not Healed -Ulcer Cleansing Rinsed/ Irrigated with Saline -Foul Odor after Cleansing No -Bioengineered Tissue No -Bleeding Controlled with Pressure -Offloading No -Treatment Response Procedure Tolerated Well -Debridement - Subq, 1st 20sq cm Yes Pain Scale: 0-10 Numeric Is Patient Pain Free? Yes - Nurse 3 - General Ulcer D/C NN Start: 01/22/21 11:11 Freq: Status: Active Protocol: Activity Type Activity Date Activity User E-Sign Co-Sign Detail Recorded Client Recorded Date Recorded By Document 01/22/21 11:30 MW [id number] 01/22/21 11:30 MW 01/22/21 11:30 Wound Care Nurse 3 #3 Coccyx -Ulcer Cleansing Rinsed/ Irrigated with Saline -Foul Odor after Cleansing No -Negative Pressure Wound Therapy N/A -Other Dressing fibracol plus -Primary Dressing Covered/Secured with Dry Gauze, Secured with Tape Treatment Response Procedure Tolerated Well Pain Scale: 0-10 Numeric Is Patient Pain Free? Yes Teaching: Wound Center Dressing Your Wound -Person Taught Patient -Teaching Method Discussion, Demonstration -Response to teaching Verbalize understanding WC - Visit Discharge Discharge Condition Stable Ambulatory Status Wheelchair Transportation Private Auto Accompanied by sister Medication Reconcilliation completed & No provided to patient/care provider Clinical Summary of Care Provided Yes Wound debrided: coccyx Laterality: Not Applicable Wound Grade/Stage: Stage 3 Type of Debridement: Excisional debridement Anesthesia Used: 4% Lidocaine Solution Depth: Down to and including healthy tissue, in the subcutaneous layer Percentage of wound debrided: 100 Instrument Used: 3mm curette Tissue Removed: Yellow slough, devitalized tissue Severity: Fat Layer Exposed Amount of bleeding with debridement: Mild Bleeding Controlled with: Compression and gauze Patient tolerated procedure well Assessment/Plan Assessment: ulcers of left groin - healed. morbid obesity. Candidal intertrigo. Stage 3 pressure ulcer of coccyx. Stage 2 pressure ulcer left posterior thigh - healed Plan: Samra's ulcer was evaluated today. Coccyx has improved minimally. I will have her continue to use Fibracol to the ulcer of her coccyx. She should continue to use ABD pads to her inguinal fold area to absorb moisture and prevent ulcers from developing due to the heavy drainage. She should change ABDs to left groin area 2-3 times/day as needed for soiling through of heavy drainage. Diflucan will be continued once weekly to treat candidal intertrigo. Will have her take this weekly to every other week due to sweating and heat and her body habitus and chronic yeast which are causing her to develop ulcers. Encouraged her to increase protein intake and offload the areas of her ulcers. Advised to call with any fever, chills, increased. drainage. Due to the chronic stage 3 pressure ulcer of her coccyx she would benefit from offloading mattress such as alternating pressure mattress. 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 F/u in 2 weeks. Follow-up sooner should new or concerning symptoms arise. Note: [employer] speech recognition drapery counselor software was used to create portions of this document. Sound-alike and misspelled words, as well as other drapery counselor errors may be contained in the documentation.
[2021-02-05 11:17] VITALS: BP 112/51; PULSE 85; RESP 18; TEMP 36.3; BMI 46.5
--- NOTE | 2021-02-05 13:27 | PCM.WC.PN ---
(1) Pressure ulcer of coccygeal region, stage 3 Status: Chronic Code(s): L89.153 - Pressure ulcer of sacral region, stage 3 (2) Morbid obesity Status: Chronic Code(s): E66.01 - Morbid (severe) obesity due to excess calories (3) Debility Status: Chronic Code(s): R53.81 - Other malaise Type of Wound Date of Service: 02/05/21 Chief Complaint: ulcers of left groin and abdomen, pressure ulcer of coccyx History of Wound: Samra is a 74 yo woman who presented to the wound center for ulcers of left groin and abdomen referred by wound nurse at [facility]. She was hospitalized at [facility] for urosepsis multiple times. She was on IV antibiotics of Meropenem and Vancomycin. She is morbidly obese and has problems with candidal intertrigo and has ulcers that open frequently for several years. She was using towels to keep moisture from accumulating under her skin folds but this has been ineffective. She started using InstaDry sheets since discharge from the hospital which has improved the moisture in her folds. She has been using nystatin powder as well. She had been using bacitracin to the ulcer of her abdomen. She has an indwelling suprapubic catheter that is changed monthly. She has heavy drainage from her ulcers. She is wheelchair bound and has an aid that helps her daily for a few hours per day. She denies fever or chills. In May 2019, she reports that she has a chronic ulcer of her coccyx area that was previously surgically debrided that comes and goes and has gotten worse since she was in the retirement in early 2018. Progress of Wound: Samra is here for follow up of ulcer of coccyx. She is tolerating Fibracol dressings to coccyx. She uses ABD pads and a pillowcase to wick away moisture from her inguinal folds. She maintains improvement in erythema and the groin ulcers are healed. She has had mild improvement to coccyx ulcer. She is tolerating fibracol to her coccyx ulcer and has moderate to heavy drainage from this ulcer. She has had increased pain. Her mid-abdomen ulcer remains healed. She denies fever or chills, nausea, vomiting, or diarrhea. 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 - Physical Exam Vital Signs Temp Pulse Resp BP 97.3 F L 85 18 112/51 L 02/05/21 11:17 02/05/21 11:17 02/05/21 11:17 02/05/21 11:17 General: Alert, Oriented x3, Cooperative, No apparent distress HEENT: Atraumatic, Normocephalic Oral: Moist Mucosa Abdomen: Soft, Non Tender, Obese Extremities: Edema Skin: Ulcer/ Wound Wound Measurements and Assessment WC - Nurse 1 - General Ulcer Measurement Start: 01/22/21 11:11 Freq: Status: Active Protocol: Activity Type Activity Date Activity User E-Sign Co-Sign Detail Recorded Client Recorded Date Recorded By Document 02/05/21 11:17 RB [id number] 02/05/21 11:19 RB 02/05/21 11:17 Wound Center Nurse 1 [Ulcer Assessment] #3 Coccyx -Combined with other wound No -Current Size (cm) - Length 1 -Current Size (cm) - Width 2.2 -Current Size (cm) - Depth 0.5 -Total Square Cm 2.2 -Tunneling No -Undermining/Tunneling Yes -Undermining/Tunneling Starts (O' 3 clock) -Undermining/Tunneling Ends (O'clock) 3 -Maximum Distance (cm) 0.6 -Circular Undermining No -Exudate Amt Small -Exudate Type Serosanguineous -Wound Margin Thickened & Rolled Under -Granulation Amt Medium (34-66%) -Granulation Quality Kinnelon -Slough/Fibrin Yes -Necrosis Amt Small (1-33%) -Necrotic Tissue Type Adherent Slough -Structure Exposed N/A -Texture (Jessica-wound Skin Appearance) Assessed, Scarring -Moisture (Jessica-wound Skin Appearance Assessed, ) Maceration -Color (Jessica-wound Skin Appearance) Assessed -Temperature (Jessica-wound Skin No Abnormality Appearance) (Pt Warm) -Tenderness on Palpation (Jessica-wound No Skin Appearance) -Ulcer Cleansing Wound Cleanser -Foul Odor after Cleansing No -Anesthetic Used 5% Lidocaine Gel WC - Nurse 2 - General Ulcer CM Notes Start: 01/22/21 11:11 Freq: Status: Active Protocol: Activity Type Activity Date Activity User E-Sign Co-Sign Detail Recorded Client Recorded Date Recorded By Document 02/05/21 11:22 MW [id number] 02/05/21 11:32 MW 02/05/21 11:22 Wound Center Nurse 2 [Procedure/Treatment] -Time 11:27 -Correct Patient Yes -Correct Side, Site, Position Yes -Correct Procedure Yes -Procedure Performed Yes -Type of Procedure Debridement -Clinical Debridement Subcutaneous -Tissue Removed Subcutaneous -Post Debridement (cm) - Length 0.3 -Post Debridement (cm) - Width 0.8 -Post Debridement (cm) - Depth 0.2 -Total Square (Post) (cm) 0.24 -Area of Debridement (cm) - Length 0.3 -Area of Debridement (cm) - Width 0.8 -Total Square (Area) (cm) 0.24 -Tunneling No -Undermining/Tunneling No -Circular Undermining No -Wound/Ulcer Outcome Not Healed -Ulcer Cleansing Rinsed/ Irrigated with Saline -Foul Odor after Cleansing No -Bioengineered Tissue No -Bleeding Controlled with Pressure -Offloading No -Treatment Response Procedure Tolerated Well -Debridement - Subq, 1st 20sq cm Yes [See Physician Procedure note for Specifics] Pain Scale: 0-10 Numeric [Pain] -Is Patient Pain Free? Yes - Nurse 3 - General Ulcer D/C NN Start: 01/22/21 11:11 Freq: Status: Active Protocol: Activity Type Activity Date Activity User E-Sign Co-Sign Detail Recorded Client Recorded Date Recorded By Document 02/05/21 11:33 MW [id number] 02/05/21 11:33 MW 02/05/21 11:33 Wound Care Nurse 3 [Wound Dressing] #3 Coccyx -Ulcer Cleansing Rinsed/ Irrigated with Saline -Foul Odor after Cleansing No -Negative Pressure Wound Therapy N/A -Other Dressing fibracol plus -Primary Dressing Covered/Secured Dry Gauze, with Secured with Tape [Post Procedure Tolerated] -Treatment Response Procedure Tolerated Well Teaching: Wound Center [Wound Center Education] (Items with an * have Printed Materials Available- Please identify what is given to patient under the Teaching materials given to patient and caregiver Section. Dressing Your Wound -Person Taught Patient -Teaching Method Discussion, Demonstration -Response to teaching Verbalize understanding WC - Visit Discharge [Visit Discharge Information] -Discharge Condition Stable -Ambulatory Status Wheelchair -Transportation Private Auto -Accompanied by sister -Medication Reconcilliation completed No & provided to patient/care provider -Clinical Summary of Care Provided Yes Psych/Mental Status: Normal Affect, Appropriate Debridement Note Post-Debridement Measurements/Treatment WC - Nurse 2 - General Ulcer CM Notes Start: 01/22/21 11:11 Freq: Status: Active Protocol: Activity Type Activity Date Activity User E-Sign Co-Sign Detail Recorded Client Recorded Date Recorded By Document 01/22/21 11:29 MW [id number] 01/22/21 11:30 MW Document 02/05/21 11:22 MW [id number] 02/05/21 11:32 MW 01/22/21 02/05/21 11:29 11:22 Wound Center Nurse 2 #3 Coccyx -Time 11:29 11:27 -Correct Patient Yes Yes -Correct Side, Site, Position Yes Yes -Correct Procedure Yes Yes -Procedure Performed Yes Yes -Type of Procedure Debridement Debridement -Clinical Debridement Subcutaneous Subcutaneous -Tissue Removed Subcutaneous Subcutaneous -Post Debridement (cm) - Length 0.3 0.3 -Post Debridement (cm) - Width 1.0 0.8 -Post Debridement (cm) - Depth 0.2 0.2 -Total Square (Post) (cm) 0.30 0.24 -Area of Debridement (cm) - Length 0.3 0.3 -Area of Debridement (cm) - Width 1.0 0.8 -Total Square (Area) (cm) 0.30 0.24 -Tunneling No No -Undermining/Tunneling No No -Circular Undermining No No -Wound/Ulcer Outcome Not Healed Not Healed -Ulcer Cleansing Rinsed/ Rinsed/ Irrigated with Irrigated with Saline Saline -Foul Odor after Cleansing No No -Bioengineered Tissue No No -Bleeding Controlled with Pressure Pressure -Offloading No No -Treatment Response Procedure Procedure Tolerated Well Tolerated Well -Debridement - Subq, 1st 20sq cm Yes Yes Pain Scale: 0-10 Numeric Is Patient Pain Free? Yes Yes WC - Nurse 3 - General Ulcer D/C NN Start: 01/22/21 11:11 Freq: Status: Active Protocol: Activity Type Activity Date Activity User E-Sign Co-Sign Detail Recorded Client Recorded Date Recorded By Document 01/22/21 11:30 MW [id number] 01/22/21 11:30 MW Document 02/05/21 11:33 MW [id number] 02/05/21 11:33 MW 01/22/21 02/05/21 11:30 11:33 Wound Care Nurse 3 #3 Coccyx -Ulcer Cleansing Rinsed/ Rinsed/ Irrigated with Irrigated with Saline Saline -Foul Odor after Cleansing No No -Negative Pressure Wound Therapy N/A N/A -Other Dressing fibracol plus fibracol plus -Primary Dressing Covered/Secured with Dry Gauze, Dry Gauze, Secured with Secured with Tape Tape Treatment Response Procedure Procedure Tolerated Well Tolerated Well Pain Scale: 0-10 Numeric Is Patient Pain Free? Yes Teaching: Wound Center Dressing Your Wound -Person Taught Patient Patient -Teaching Method Discussion, Discussion, Demonstration Demonstration -Response to teaching Verbalize Verbalize understanding understanding WC - Visit Discharge Discharge Condition Stable Stable Ambulatory Status Wheelchair Wheelchair Transportation Private Auto Private Auto Accompanied by sister sister Medication Reconcilliation completed & No No provided to patient/care provider Clinical Summary of Care Provided Yes Yes Wound debrided: coccyx Laterality: Not Applicable Wound Grade/Stage: Stage III Type of Debridement: Excisional debridement Anesthesia Used: 4% Lidocaine Solution Depth: Down to and including healthy tissue, in the subcutaneous layer Percentage of wound debrided: 100 Instrument Used: 3mm curette Tissue Removed: Yellow slough, devitalized tissue Severity: Fat Layer Exposed Amount of bleeding with debridement: Mild Bleeding Controlled with: Compression and gauze Patient tolerated procedure well Assessment/Plan Active Problems (Last Reviewed 12/02/20 @ 19:[address] Juan Ramon Andrews MD) Pressure ulcer of coccygeal region, stage 3 (Chronic) Morbid obesity (Chronic) Debility (Chronic) Assessment: ulcers of left groin - healed. morbid obesity. Candidal intertrigo. Stage 3 pressure ulcer of coccyx. Stage 2 pressure ulcer left posterior thigh - healed Plan: Samra's ulcer was evaluated today. Coccyx has improved minimally. I will have her continue to use Fibracol to the ulcer of her coccyx. She should continue to use ABD pads to her inguinal fold area to absorb moisture and prevent ulcers from developing due to the heavy drainage. Wound culture taken today due to increased pain. She should change ABDs to left groin area 2-3 times/day as needed for soiling through of heavy drainage. Diflucan will be continued once weekly to treat candidal intertrigo. Will have her take this weekly to every other week due to sweating and heat and her body habitus and chronic yeast which are causing her to develop ulcers. Encouraged her to increase protein intake and offload the areas of her ulcers. Advised to call with any fever, chills, increased. drainage. Due to the chronic stage 3 pressure ulcer of her coccyx she would benefit from offloading mattress such as alternating pressure mattress. 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 F/u in 2 weeks. Follow-up sooner should new or concerning symptoms arise. Note: [employer] speech recognition digital production manager software was used to create portions of this document. Sound-alike and misspelled words, as well as other digital production manager errors may be contained in the documentation.
== END 2021-02-10 23:59 ==
LOC: WC 11:30
PROVIDERS: Family Provider Family Medicine; PCP Family Medicine; Referring Provider Family Medicine; Visit Provider Family Medicine
DX: L89.153 Pressure ulcer of sacral region, stage 3 (principal); E66.01 Morbid (severe) obesity due to excess calories; B37.2 Candidiasis of skin and nail; Z99.3 Dependence on wheelchair
CPT/HCPCS: 11042; 87070; 87075; 87077; 87205

== ENCOUNTER 2021-02-08 16:16 | Inpatient (IN) | payer MEDICARE, OTHER, SELFPAY ==
[2021-02-08 16:18] VITALS: BMI 46.0
[2021-02-08 16:19] VITALS: BP 113/60; PULSE 61; RESP 18; TEMP 36; O2SAT 92; BMI 44.8
[2021-02-08 16:31] VITALS: BP 122/65; PULSE 72; RESP 18; TEMP 36; O2SAT 93
--- NOTE | 2021-02-08 16:51 | EKG12_ITS ---
Test Reason : NEURO SX Blood Pressure : / mmHG Vent. Rate : 068 BPM Atrial Rate : 068 BPM P-R Int : 156 ms QRS Dur : 078 ms QT Int : 434 ms P-R-T Axes : 014 026 027 degrees QTc Int : 461 ms Ectopic atrial rhythm Low voltage QRS Cannot rule out Anterior infarct , age undetermined Abnormal ECG Confirmed by SEBASTIÁN THOMPSON, KENNEDY ([id number]), film editor BROOKS WIGGINS ([id number]) on 02/11/2021 9:45:53 AM Referred By: ALYSSA Confirmed By:KENNEDY LOWERY MD
--- NOTE | 2021-02-08 16:52 | ED.DCSUM_ITS ---
- ER Visit Summary Date of Service: 02/08/21 Chief Complaint: Per sister mental status change and I feel she is dehydrated History of Present Illness: The patient is a 75 F history of chronic indwelling Henry catheter, anemia, wheelchair dependent, prior A. fib, renal insufficiency and kidney stones. Reportedly patient's had decreased oral intake and sister felt she was not her normal self today. Mild nausea but no vomiting or diarrhea. No dysuria. No fever or chills. No cough, chest pain, abdominal pain or shortness of breath. Physical Examination: Older female accompanied by her sister vital signs stable afebrile. Pulse ox 93% on room air no signs of hypoxia. Patient is in no distress. H EENT exam atraumatic. Pupils round reactive light. She does have dry mucous membranes. Neck nontender. No JVD. No lymphadenopathy. No meningismus. Lungs clear to auscultation bilaterally. Heart regular rhythm rate about 70 no murmur. Abdomen morbidly obese but soft nontender normal bowel sounds no peritoneal signs. Patient is moving all 4 extremities. Nontender. No deformity. No edema. No obvious cellulitis. Neurologically she is awake. She is answering questions and following commands. She has no focal motor deficits. Test Results: Those a normal sinus rhythm rate of 68 with low voltage. No acute signs of DE nor ischemia. No obvious dysrhythmia. Chest x-ray portable 1 view interpreted by myself and the radiologist shows no acute abnormality. Chronic changes. CBC white count of 4. Hemoglobin 6.9 previously was 7.3 and is trending down. Hematocrit 25. Chemistries sodium 134. Normal gap of 5. BUN 26 creatinine 1.59 which is her baseline. Liver enzymes unchanged UA greater than 100 white cells 1+ bacteria but no nitrates culture sent this is probably chronic from her chronic indwelling Henry catheter. Emergency Department Course and Treatment: Older female concern for dehydration and mental status change. She had a similar work-up 2 weeks ago. At that time had a negative CAT scan. She is moving her extremities there is no obvious signs of stroke I do not feel that she needs neurological imaging at this time. She will receive IV fluids and laboratory work-up along with EKG and chest x- ray. Treatment Plan: Gaby at length with the patient's sister. She is basically failing to thrive. They are trying to keep her hemoglobin above 8. Sister thinks she needs to be transfused. I typed and screened and typed and crossed the patient. I will speak to the hospitalist about admission. Sister is concerned that the patient also is scheduled for second Covid vaccine tomorrow afternoon. Disposition: Admission Impression: Acute on chronic anemia Generalized weakness Chronic renal insufficiency Failure to thrive This note was generated with [employer] dictation software. It may contain incorrect words, spelling, and punctuation that were not noted in review of the chart prior to signing ED Disposition - Plan for ED Patient: Referrals: Colby Valenzuela DO [Primary Care Provider] -
[2021-02-08] MEDS: 0.9% Normal Saline 1,000 ML 1000 ML IV (17:20)
--- NOTE | 2021-02-08 17:30 | RAD_ITS ---
STUDY: X-RAY CHEST REASON FOR EXAM: Female, 75 years old. Mental status changes. TECHNIQUE: Single frontal view of the chest. COMPARISON: 11/27/2020 FINDINGS: Stable low volume inspiration. There is no demonstrated pleural abnormality. Cardiomegaly unchanged. Normal mediastinum and peace. Normal visualized pulmonary arteries. Aortic tortuosity with calcification unchanged. Normal visualized thoracic spine. Normal visualized ribs, clavicles, and shoulders. There is no demonstrated abnormality of the visualized soft tissue structures of the upper abdomen. RAD/Chest 1 View (Portable) IMPRESSION: Stable chest with no acute or active cardiopulmonary disease. Electronically Signed: Dejon Luna MD at 18:35 EDT , Service support ,
[2021-02-08 17:38] LABS: Absolute Lymphocyte Count 0.79 X10^3/uL (0.83-4.51); Absolute Neutrophil Count 2.9 X10^3/uL (2.0-7.7); Basophil# 0.03 X10^3/uL; Basophil% 0.7 % (0-1); Eosinophil# 0.08 X10^3/uL; Eosinophils% 1.8 % (0-5); Hematocrit 25.7 % (37-47); Hemoglobin 6.9 g/dL (12.0-15.0); Lymphocyte # 0.79 X10^3/ul (4.0); Mean Corp Hgb Conc 26.8 g/dL (32-36); Mean Corpuscular Hgb 25.5 pg (27.0-32.0); Mean Corpuscular Volume 94.8 fL (81-99); Monocyte# 0.56 X10^3/uL; Monocyte% 12.8 % (0-10); NRBC Flagged by Analyzer 0 % (0-5); Neutrophil # 2.89 X10^3/uL (2.7-7.7); Platelet Count 342 K/mm3 (150-450); RBC Distribution Width CV 16.6 % (11.6-14.6); RBC Distribution Width SD 57.5 fl (35.1-43.9); Red Blood Count 2.71 M/mm3 (4.2-5.4); White Blood Count 4.4 K/mm3 (4.4-11.0)
[2021-02-08 17:48] LABS: ALB/GLOB Ratio 0.3 RATIO (0.9-2.4); AST(SGOT) 20 U/L (15-37); Alanine Aminotransfer ALT/SGPT 12 U/L (13-56); Albumin, Serum 1.6 g/dL (3.2-5.0); Alkaline Phosphatase 95 U/L (45-117); Anion Gap 5 (5-15); BUN 26 mg/dL (7-18); BUN/Creat Ratio 16.4 RATIO (10-20); Calcium,Total 8.2 mg/dL (8.5-10.1); Chloride 106 mmol/L (98-107); Creatinine, Serum 1.59 mg/dL (0.55-1.02); EST Glomerular Filtration Rate 34 mL/min (>60); Est Glom Filt Rate - Afr Amer 41 mL/min (>60); Estimated Creatinine Clearance 30.19 ml/min; Globulin 5.9 g/dL (2.2-4.2); Glucose 92 mg/dL (74-106); Potassium 4.5 mmol/L (3.5-5.1); Protein, Total 7.5 g/dL (6.4-8.2); Sodium Level 134 mmol/L (136-145)
[2021-02-08 18:00] LABS: Mucous, Urine 0 SEEN /hpf (<or=2+); Squamous Epithelial Cells - UA 0 SEEN /hpf (5-10)
[2021-02-08 18:02] LABS: Color, Urine Yellow (Yellow); Glucose, Dipstick Normal (Normal); Ketone-Dipstick Negative (Negative); Leukocyte Esterase-Dipstick 500 /ul (Negative); Nitrite-Dipstick Negative (Negative); Occult Blood-Urine 250 /ul (Negative); Protein-Dipstick 100 mg/dl (Negative); Urine Bilirubin Dipstick Negative (Negative); Urine Clarity Cloudy (Clear); Urine Urobilinogen Normal (Normal); Urine pH 6.5 (5.0 - 8.0)
[2021-02-08 18:36] LABS: Bacteria 1+ /hpf (None Seen); Red Blood Cells-Urine 0-5 SEEN /hpf (0-5); White Blood Cells >100 SEEN /hpf (0-5)
[2021-02-08 18:37] VITALS: BP 113/57; PULSE 70; RESP 14; O2SAT 93
[2021-02-08 20:27] VITALS: BP 113/78; PULSE 69; PULSE 78; RESP 14; RESP 16; TEMP 35.6; O2SAT 93
--- NOTE | 2021-02-08 20:58 | HP.PCM_ITS ---
<Kacie Booker - Last Filed: 02/08/21 20:58> Problem List (1) UTI (urinary tract infection) due to urinary indwelling catheter Status: Acute Comment: Chronic gram negative bacteria (2) Acute on chronic anemia Status: Chronic (3) Chronic kidney disease, stage 3a Status: Chronic (4) History of atrial fibrillation Status: Chronic (5) Pressure ulcer of coccygeal region, stage 3 Status: Chronic (6) Morbid obesity Status: Chronic (7) HLD (hyperlipidemia) Status: Chronic (8) Depression Status: Chronic (9) VITA (obstructive sleep apnea) Status: Chronic (10) Hypertension Status: Chronic (11) Diabetes mellitus type 2 in obese Status: Chronic History of Present Illness Date of Admission: 02/08/21 Chief Complaint: UTI, weakness The patient is a 75 year old F who presents today with increased weakness, altered mental status per sister report, and suspected UTI. Patient has chronic indwelling Henry catheter, and is wheelchair dependent, but patient sister feels that she is more weak and not her normal self. Patient history includes hypertension, hyperlipidemia, diabetes mellitus type 2, obstructive sleep apnea, chronic anemia and anxiety and depression. Patient has been undergoing outpatient treatment with Dr. Domínguez for chronic UTI for which she has been doing Betadine washes of her bladder every other day followed by saline. Upon examination patient is lethargic. Patient is poor historian due to lethargy. Past Medical History Past Medical History (Chronic Problems): Chronic Problems (Last Reviewed 02/08/21 @ 21:04 by Kacie Booker, CERAMIC RESEARCH ENGINEER-C) Wheelchair dependence (Chronic) Anemia (Chronic) Pressure ulcer of left thigh (Chronic) [id number] kidney injury (Chronic) Hypertension (Chronic) Diabetes mellitus type 2 in obese (Chronic) Acute on chronic anemia (Chronic) Chronic kidney disease, stage 3a (Chronic) History of atrial fibrillation (Chronic) Ulcer of abdomen wall with fat layer exposed (Chronic) Ulcer of left groin with fat layer exposed (Chronic) Pressure ulcer of coccygeal region, stage 3 (Chronic) Morbid obesity (Chronic) Anxiety and depression (Chronic) HLD (hyperlipidemia) (Chronic) Debility (Chronic) Depression (Chronic) VITA (obstructive sleep apnea) (Chronic) Candidal intertrigo (Chronic) Medical History: Medical History (Last Reviewed 02/08/21 @ 21:04 by Kcaie Knoble, CERAMIC RESEARCH ENGINEER-C) History of atrial fibrillation (Chronic) Z86.79 Ulcer of abdomen wall with fat layer exposed (Chronic) L98.492 Ulcer of left groin with fat layer exposed (Chronic) L98.492 Pressure ulcer of coccygeal region, stage 3 (Chronic) L89.153 Morbid obesity (Chronic) E66.01 Anxiety and depression (Chronic) F41.9, F32.9 HLD (hyperlipidemia) (Chronic) E78.5 UTI (urinary tract infection) due to urinary indwelling catheter (Acute) T83.511A, N39.0 Chronic gram negative bacteria Severe sepsis (Inactive) A41.9, R65.20 V tach (Inactive) I47.2 VITA (obstructive sleep apnea) (Chronic) G47.33 Candidal intertrigo (Chronic) B37.2 Debility R53.81 DM2 (diabetes mellitus, type 2) E11.9 Essential hypertension I10 VITA (obstructive sleep apnea) G47.33 Allergies adhesive tape Allergy (Verified 02/08/21 16:29) blisters Influenza Virus Vaccines Allergy (Verified 02/08/21 16:29) shortness of breath/severe wheezing iron Allergy (Verified 02/08/21 16:29) from IV form chest pressure and heart palpitations Sulfa (Sulfonamide Antibiotics) Allergy (Verified 02/08/21 16:29) Shortness of breath bactrim does not work for her-per pcp paperwork meloxicam [From Mobic] Adverse Reaction (Verified 02/08/21 16:29) gi upset seasonal allergies Allergy (Uncoded 02/08/21 16:29) Other Home Medications: Ambulatory Orders Medication Instructions Recorded Furosemide [Lasix] 20 mg PO TID 09/30/13 Albuterol Inhaler [Ventolin Hfa] 2 puff INHALATION Q4H PRN PRN 10/30/18 Gabapentin [Neurontin] 600 mg PO BID 10/30/18 Oxybutynin Chloride [Ditropan Xl] 15 mg PO DAILY 10/30/18 Pravastatin [Pravachol] 20 mg PO QHS 12/17/18 Duloxetine HCl 60 mg PO DINNER 03/22/19 Venlafaxine XR [Effexor Xr] 150 mg PO BID 07/02/19 Potassium Chloride Oral Tablet 10 meq PO DAILYCM 08/18/19 [K-Dur] Aspirin [Aspirin, Baby] 81 mg PO DAILY #0 MDD [facility] 08/13/20 Methenamine Hippurate [Hiprex] 1 gm PO BID #0 08/13/20 Famotidine 20 mg PO QHS 10/15/20 Lisinopril [Zestril] 10 mg PO DAILY 10/15/20 Surgical History: Surgical History (Last Reviewed 02/08/21 @ 21:04 by Kacie Booker NP-C) H/O: hysterectomy Z90.710 Same time as open gallbladder History of cholecystectomy Z90.49 Open, same time as hysterectomy History of tonsillectomy Z90.89 Hx of appendectomy Z90.49 Surgical History: cholecystectomy, hysterectomy, - - Suprapubic catheter placement. Psychiatric History: Anxiety, Bipolar, Depression SENIOR JAVA ARCHITECT History: No pertinent SENIOR JAVA ARCHITECT history Lives: With Family Smoking Status: Never smoker Alcohol: None - *Family History Maternal History Items: Diabetes, Heart Disease - Her father had a CABG and CHF Paternal History Items: Heart Disease Review of Systems Constitutional: Reports: Malaise, Weakness, Fatigue. Denies: Chills, Fever, Weight Change HEENT: Denies: Head Aches, Sinus Congestion, Sinus Drainage Cardiovascular: Denies: Chest Pain, Palpitations Respiratory: Denies: Cough, Shortness of breath at rest, Sputum production Gastrointestinal: Denies: Abdominal Pain, Nausea, Vomiting Genitourinary: Reports: Hematuria - Sister states this is normal for patient. Denies: Dysuria Musculoskeletal: Denies: Joint Pain, Joint Tenderness Skin: Denies: Rash, Wounds Neurological: Denies: Numbness, Tingling, Focal weakness Psychiatric: Denies: Anxiety, Depression, Homicidal Ideations, Suicidal Ideations Hematologic/ Lymphatic: Denies: Easy Bruising, Easy Bleeding VTE Information - Inpt Only VTE Present on Admission: No VTE Mechan Device Prophylaxis: SCD's VTE Pharm Prophylaxis ordered?: Yes Patient Problems: Active and Suspected Problems (Last Reviewed 02/08/21 @ 21:04 by Kacie Booker NP-C) UTI (urinary tract infection) due to urinary indwelling catheter (Acute) Chronic gram negative bacteria - Physical Exam Vitals/I&O's: Vital Signs Temp Pulse Resp BP Pulse Ox 96.0 F L 78 16 113/78 93 02/08/21 20:27 02/08/21 20:27 02/08/21 20:27 02/08/21 20:27 02/08/21 20:27 Oxygen Flow Rate (L/min) 2 Oxygen Delivery Method Nasal Cannula Weight: 286 lb 2.56 oz Body Mass Index (BMI) 44.8 Finger Stick Blood Glucose 150 Intake and Output for Last 24 Hours 02/06/21 02/07/21 02/08/21 23:59 23:59 23:59 Intake Total 1000 / 1000 Balance 1000 / 1000 General: Disoriented, Lethargic HEENT: Atraumatic, PERRLA, EOMI, Normocephalic Neck: Supple, No JVD, Negative Carotid Bruits Lungs: Clear to auscultation, Normal air movement, Diminished Cardiovascular: Regular rate, Regular Rhythm, Normal S1, Normal S2, No murmurs Abdomen: Bowel Sounds Present, Soft, Non Tender, Obese Extremities: Capillary Refill Less than 3 Seconds, Edema, Peripheral Pulses Normal Skin: Ulcer/ Wound - Chronic wound to coccyx Musculoskeletal: No Tenderness to Palpation of Joints or Extremities Neurological: Cranial nerves II-XII grossly intact Psych/Mental Status: Flat Affect Laboratory Results 02/08/21 17:15: WBC 4.4, RBC 2.71 L, Hgb 6.9 L, Hct 25.7 L, MCV 94.8, MCH 25.5 L , MCHC 26.8 L, RDW Std Deviation 57.5 H, RDW Coeff of Jessi 16.6 H, Plt Count 342, MPV 9.0, Immature Gran % (Auto) 0.700, Neut % (Auto) 66.0, Lymph % (Auto) 18.0 L, [place] % (Auto) 12.8 H, Eos % (Auto) 1.8, Baso % (Auto) 0.7, Absolute Neuts (auto) 2.9, Absolute Lymphs (auto) 0.79 L, Nucleated RBC % 0 02/08/21 17:15: Sodium 134 L, Potassium 4.5, Chloride 106, Carbon Dioxide 23.0, Anion Gap 5, BUN 26 H, Creatinine 1.59 H, Estim Creat Clear Calc 30.19, Est GFR (MDRD) Af Amer 41 L, Est GFR (MDRD) Non-Af 34 L, BUN/Creatinine Ratio 16.4, Glucose 92, Calcium 8.2 L, Total Bilirubin 0.30, AST 20, ALT 12 L, Alkaline Phosphatase 95, Total Protein 7.5, Albumin 1.6 L, Globulin 5.9 H, Albumin/Globulin Ratio 0.3 L 02/08/21 17:54: Urine Color Yellow, Urine Clarity Cloudy, Urine pH 6.5, Ur Specific [place] 1.010, Urine Protein 100 H, Urine Glucose (UA) Normal, Urine Ketones Negative, Urine Occult Blood 250 H, Urine Nitrite Negative, Urine Bilirubin Negative, Urine Urobilinogen Normal, Ur Leukocyte Esterase 500 H, Urine RBC 0-5 SEEN, Urine WBC >100 SEEN, Ur Squamous Epith Cells 0 SEEN, Urine Bacteria 1+, Urine Mucus 0 SEEN Assessment/Plan All Active Problems (Last Reviewed 02/08/21 @ 21:04 by Kacie Booker NP-C) UTI (urinary tract infection) (Acute) Encephalopathy (Acute) UTI (urinary tract infection) due to urinary indwelling catheter (Acute) MICHAELLE (acute kidney injury) (Acute) Suprapubic catheter dysfunction (Resolved) 1. UTI due to urinary indwelling catheter -Based on patient last culture from 12/11/2020 we will start cefepime and aztreonam to cover. -Will consult infectious disease -Continue Ditropan and Hiprex. 2. Acute on chronic anemia -Type and cross completed in ER with orders to transfuse 1 unit. -1 unit PRBCs on hold -H and H ordered following first unit of PRBCs 3. Chronic kidney disease stage IIIa, GFR 30 to 59 mL/min -BUN and creatinine at baseline 26/1.59, GFR 34 -Normal saline 100 ml/hr -CMP ordered for a.m. 4. Diabetes mellitus type 2 -Hold Metformin. -AC at bedtime blood sugars with sliding scale insulin 5. Hypertension -Continue Lasix, lisinopril. 6. Hyperlipidemia -Continue Pravachol 7. Obstructive sleep apnea -Patient does not use BiPAP at home, will order BiPAP at bedtime and as needed 8. Depression -Continue Effexor, duloxetine. 9. Pressure ulcer of coccygeal region, stage III -Will consult wound nurse 10. Morbid obesity -Nutrition consulted, lifestyle modifications recommended 11. History of atrial fibrillation -EKG shows sinus rhythm heart rate 64 DVT prophylaxis-subcu Lovenox, SCDs This patient was seen by Kacie Booker NPYaneth under the supervision of Dr. Dutta. <Kyree Dutta - Last Filed: 02/08/21 23:36> History of Present Illness The patient is a 75 year old F [] Past Medical History Medical History: Medical History (Last Reviewed 02/08/21 @ 21:04 by Kacie Booker NP-C) History of atrial fibrillation (Chronic) Z86.79 Ulcer of abdomen wall with fat layer exposed (Chronic) L98.492 Ulcer of left groin with fat layer exposed (Chronic) L98.492 Pressure ulcer of coccygeal region, stage 3 (Chronic) L89.153 Morbid obesity (Chronic) E66.01 Anxiety and depression (Chronic) F41.9, F32.9 HLD (hyperlipidemia) (Chronic) E78.5 UTI (urinary tract infection) due to urinary indwelling catheter (Acute) T83.511A, N39.0 Chronic gram negative bacteria Severe sepsis (Inactive) A41.9, R65.20 V tach (Inactive) I47.2 VITA (obstructive sleep apnea) (Chronic) G47.33 Candidal intertrigo (Chronic) B37.2 Debility R53.81 DM2 (diabetes mellitus, type 2) E11.9 Essential hypertension I10 VITA (obstructive sleep apnea) G47.33 Allergies adhesive tape Allergy (Verified 02/08/21 16:29) blisters Influenza Virus Vaccines Allergy (Verified 02/08/21 16:29) shortness of breath/severe wheezing iron Allergy (Verified 02/08/21 16:29) from IV form chest pressure and heart palpitations Sulfa (Sulfonamide Antibiotics) Allergy (Verified 02/08/21 16:29) Shortness of breath bactrim does not work for her-per pcp paperwork meloxicam [From Mobic] Adverse Reaction (Verified 02/08/21 16:29) gi upset seasonal allergies Allergy (Uncoded 02/08/21 16:29) Other Surgical History: Surgical History (Last Reviewed 02/08/21 @ 21:04 by DEDRICK Frias) H/O: hysterectomy Z90.710 Same time as open gallbladder History of cholecystectomy Z90.49 Open, same time as hysterectomy History of tonsillectomy Z90.89 Hx of appendectomy Z90.49 - Physical Exam Vitals/I&O's: Vital Signs Temp Pulse Resp BP Pulse Ox 98.1 F 68 18 125/95 H 100 02/08/21 21:27 02/08/21 21:27 02/08/21 21:27 02/08/21 21:27 02/08/21 21:27 Oxygen Flow Rate (L/min) 2 Oxygen Delivery Method Nasal Cannula Weight: 125.1 kg Body Mass Index (BMI) 43.2 Finger Stick Blood Glucose 150 Intake and Output for Last 24 Hours 02/06/21 02/07/21 02/08/21 23:59 23:59 23:59 Intake Total 1100.25 / 1100.25 Balance 1100. / 1100. Laboratory Results 02/08/21 17:15: WBC 4.4, RBC 2.71 L, Hgb 6.9 L, Hct 25.7 L, MCV 94.8, MCH 25.5 L , MCHC 26.8 L, RDW Std Deviation 57.5 H, RDW Coeff of Jessi 16.6 H, Plt Count 342, MPV 9.0, Immature Gran % (Auto) 0.700, Neut % (Auto) 66.0, Lymph % (Auto) 18.0 L , [place] % (Auto) 12.8 H, Eos % (Auto) 1.8, Baso % (Auto) 0.7, Absolute Neuts (auto) 2.9, Absolute Lymphs (auto) 0.79 L, Nucleated RBC % 0 02/08/21 17:15: Sodium 134 L, Potassium 4.5, Chloride 106, Carbon Dioxide 23.0, Anion Gap 5, BUN 26 H, Creatinine 1.59 H, Estim Creat Clear Calc 30.19, Est GFR (MDRD) Af Amer 41 L, Est GFR (MDRD) Non-Af 34 L, BUN/Creatinine Ratio 16.4, Glucose 92, Calcium 8.2 L, Total Bilirubin 0.30, AST 20, ALT 12 L, Alkaline Phosphatase 95, Total Protein 7.5, Albumin 1.6 L, Globulin 5.9 H, [place] min/Globulin Ratio 0.3 L 02/08/21 17:15: Iron 45 L, TIBC 278, Iron Saturation 16.2, Ferritin 20 02/08/21 17:54: Urine Color Yellow, Urine Clarity Cloudy, Urine pH 6.5, Ur Specific [place] 1.010, Urine Protein 100 H, Urine Glucose (UA) Normal, Urine Ketones Negative, Urine Occult Blood 250 H, Urine Nitrite Negative, Urine Bilirubin Negative, Urine Urobilinogen Normal, Ur Leukocyte Esterase 500 H, Urine RBC 0-5 SEEN, Urine WBC >100 SEEN, Ur Squamous Epith Cells 0 SEEN, Urine Bacteria 1+, Urine Mucus 0 SEEN 02/08/21 22:15: Blood Type Pending, Antibody Screen Pending, Crossmatch See Detail 02/08/21 22:46: POC Glucose 75 Current Medications Acetaminophen (Acetaminophen 325 Mg Tablet) 650 mg PO Q6H PRN PRN PRN Reason: Pain Score 1-10/Temp > 100.7 F Enoxaparin Sodium (Enoxaparin 40 Mg/0.4 Ml Syringe) 40 mg SC BID [facility] Last Admin: 02/08/21 22:59 Dose: 40 mg Documented by: Sodium Chloride () 1,000 mls @ 100 mls/hr IV .Q10H [facility] Last Admin: 02/08/21 22:34 Dose: 100 mls/hr Documented by: Cefepime HCl 2 gm/ Sodium (Chloride) 100 mls @ 200 mls/hr IV Q12 [facility] Last Infusion: 02/08/21 23:06 Dose: Infused Documented by: Aztreonam 1 gm/ Sodium (Chloride) 100 mls @ 150 mls/hr IV Q8 [facility] Last Admin: 02/08/21 23:22 Dose: 150 mls/hr Documented by: Sodium Chloride () 250 mls @ 15 mls/hr IV .[id number] PRN PRN Reason: Saline Flush Last Infusion: 02/08/21 22:42 Dose: 0 mls/hr Documented by: Sodium Chloride () 250 mls @ 15 mls/hr IV .[id number] PRN PRN Reason: Additional IVPB Infusion Insulin Human Lispro (Insulin Lispro 100 Unit/Ml Insuln.Pen) 0 unit SC [facility]; Protocol Last Admin: 02/08/21 22:57 Dose: Not Given Documented by: Melatonin (Melatonin 3 Mg Tablet) 3 mg PO QHS PRN PRN PRN Reason: INSOMNIA Ondansetron HCl (Ondansetron 4 Mg/2 Ml Vial) 4 mg IV Q8H PRN PRN PRN Reason: NAUSEA/VOMITING Sodium Chloride (0.9% Saline Lock 10 Ml Syringe) 10 - 40 ml IV UD PRN PRN Reason: SALINE FLUSH Last Admin: 02/08/21 22:41 Dose: 20 ml Documented by: Assessment/Plan The patient was seen and examined. I agree with assessment and plan by Kacie Booker NP Patient was brought to the ED because of altered mental status. Patient is alert but confused Heart sounds S1-S2 present Lung clear to auscultate Patient looks pale Acute on chronic UTI secondary to indwelling Henry catheter. Change Henry. Based on previous culture and sensitivity patient will be started on cefepime and aztreonam On a previous admission urology recommended bladder irrigation. We will initiate bladder irrigation while inpatient. Trend CBC and BMP. Acute infectious encephalopathy secondary to UTI Treat for UTI as above Debility PT and OT to work with patient. Inpatient E&M: 21943 Init Hosp L3
[2021-02-08 21:23] VITALS: BMI 43.2
[2021-02-08 21:26] VITALS: BMI 43.2
[2021-02-08 21:27] VITALS: BP 125/95; PULSE 68; RESP 18; TEMP 36.7; O2SAT 100
[2021-02-08] MEDS: 0.9% Normal Saline 1,000 ML 100 ML IV (22:34)
[2021-02-08] MEDS: 0.9% Saline Lock 10 ML Syringe IV (22:41)
[2021-02-08] MEDS: Enoxaparin 40 MG/0.4 ML Syringe SC (22:59)
[2021-02-08 23:01] LABS: Bedside Glucose 75 mg/dL (70-110)
[2021-02-08 23:04] LABS: Ferritin 20 ng/mL (8-252); Iron 45 ug/dL (50-170); Iron Binding Capacity,Total 278 ug/dL (250-450); PERCENT IRON SATURATION 16.2 % (15.0-55.0)
[2021-02-09] VITALS (10 sets, daily range): BP systolic 101–132; BP diastolic 46–67; PULSE 73–82; RESP 16–18; TEMP 36.3–36.7; O2SAT 96–100
[2021-02-09 00:06] LABS: Bedside Glucose 95 mg/dL (70-110)
[2021-02-09 00:06] LABS: Bedside Glucose 79 mg/dL (70-110)
[2021-02-09] MEDS: 0.9% Saline Lock 10 ML Syringe IV ×3 (00:57→21:34)
[2021-02-09 06:36] LABS: Bedside Glucose 91 mg/dL (70-110)
[2021-02-09 06:36] LABS: Absolute Lymphocyte Count 0.95 X10^3/uL (0.83-4.51); Absolute Neutrophil Count 2.7 X10^3/uL (2.0-7.7); Basophil# 0.03 X10^3/uL; Basophil% 0.7 % (0-1); Eosinophil# 0.15 X10^3/uL; Eosinophils% 3.3 % (0-5); Hematocrit 28.4 % (37-47); Hemoglobin 8.2 g/dL (12.0-15.0); Lymphocyte # 0.95 X10^3/ul (4.0); Lymphocyte % 20.7 % (19-41); Mean Corp Hgb Conc 28.9 g/dL (32-36); Mean Corpuscular Hgb 25.8 pg (27.0-32.0); Mean Corpuscular Volume 89.3 fL (81-99); Mean Platelet Vol. 9.2 fl (6.2-12.0); Monocyte# 0.73 X10^3/uL; Monocyte% 15.9 % (0-10); NRBC Flagged by Analyzer 0 % (0-5); Neutrophil # 2.71 X10^3/uL (2.7-7.7); Platelet Count 404 K/mm3 (150-450); RBC Distribution Width CV 15.9 % (11.6-14.6); RBC Distribution Width SD 51.6 fl (35.1-43.9); Red Blood Count 3.18 M/mm3 (4.2-5.4); White Blood Count 4.6 K/mm3 (4.4-11.0)
[2021-02-09 07:05] LABS: ALB/GLOB Ratio 0.3 RATIO (0.9-2.4); AST(SGOT) 6 U/L (15-37); Alanine Aminotransfer ALT/SGPT 11 U/L (13-56); Albumin, Serum 1.6 g/dL (3.2-5.0); Alkaline Phosphatase 94 U/L (45-117); Anion Gap 5 (5-15); BUN 25 mg/dL (7-18); BUN/Creat Ratio 16.7 RATIO (10-20); Calcium,Total 8.2 mg/dL (8.5-10.1); Chloride 110 mmol/L (98-107); EST Glomerular Filtration Rate 36 mL/min (>60); Est Glom Filt Rate - Afr Amer 44 mL/min (>60); Globulin 5.8 g/dL (2.2-4.2); Glucose 96 mg/dL (74-106); Magnesium 2.2 mg/dL (1.6-2.6); Phosphorus 3.5 mg/dL (2.5-4.9); Potassium 3.8 mmol/L (3.5-5.1); Protein, Total 7.4 g/dL (6.4-8.2); Sodium Level 138 mmol/L (136-145)
--- NOTE | 2021-02-09 08:20 | NURSING ---
wound photo: yimi
[2021-02-09] MEDS: 0.9% Normal Saline 1,000 ML 100 ML IV (08:22)
--- NOTE | 2021-02-09 10:14 | CON.PCM_ITS ---
Problem List (1) UTI (urinary tract infection) Status: Acute Qualifiers: Indwelling urinary catheter type: indwelling urethral catheter Reason for Consult: uti Consulted by: Dr. uDtta History of Present Illness: The patient is a 75 year old F with CKD, recurrent uti, getting bladder betadine washes at home, presented to ED yesterday with 1-2 days of confusion, altered mental status, feeling chilled. Follows at wound center, sacral wound with some purulence and cx sent 02/[address] Dumont. Came to ED, admitted on cefepime and aztreo. Feeling much better today. Full ROS performed and neg except as noted above. - Medical History Past Medical History (Chronic Problems): Chronic Problems (Last Reviewed 02/08/21 @ 21:04 by Kacie Booker NP-C) Wheelchair dependence (Chronic) Anemia (Chronic) Pressure ulcer of left thigh (Chronic) [id number] kidney injury (Chronic) Hypertension (Chronic) Diabetes mellitus type 2 in obese (Chronic) Acute on chronic anemia (Chronic) Chronic kidney disease, stage 3a (Chronic) History of atrial fibrillation (Chronic) Ulcer of abdomen wall with fat layer exposed (Chronic) Ulcer of left groin with fat layer exposed (Chronic) Pressure ulcer of coccygeal region, stage 3 (Chronic) Morbid obesity (Chronic) Anxiety and depression (Chronic) HLD (hyperlipidemia) (Chronic) Debility (Chronic) Depression (Chronic) VITA (obstructive sleep apnea) (Chronic) Candidal intertrigo (Chronic) Allergies/Adverse Reactions: Allergies adhesive tape Allergy (Verified 02/08/21 16:29) blisters Influenza Virus Vaccines Allergy (Verified 02/08/21 16:29) shortness of breath/severe wheezing iron Allergy (Verified 02/08/21 16:29) from IV form chest pressure and heart palpitations Sulfa (Sulfonamide Antibiotics) Allergy (Verified 02/08/21 16:29) Shortness of breath bactrim does not work for her-per pcp paperwork meloxicam [From Mobic] Adverse Reaction (Verified 02/08/21 16:29) gi upset seasonal allergies Allergy (Uncoded 02/08/21 16:29) Other Home Medications: Ambulatory Orders Medication Instructions Recorded Furosemide [Lasix] 20 mg PO TID 09/30/13 Albuterol Inhaler [Ventolin Hfa] 2 puff INHALATION Q4H PRN PRN 10/30/18 Gabapentin [Neurontin] 600 mg PO BID 10/30/18 Oxybutynin Chloride [Ditropan Xl] 15 mg PO DAILY 10/30/18 Pravastatin [Pravachol] 20 mg PO QHS 12/17/18 Duloxetine HCl 60 mg PO DINNER 03/22/19 Venlafaxine XR [Effexor Xr] 150 mg PO BID 07/02/19 Potassium Chloride Oral Tablet 10 meq PO DAILYCM 08/18/19 [K-Dur] Aspirin [Aspirin, Baby] 81 mg PO DAILY #0 MDD [facility] 08/13/20 Methenamine Hippurate [Hiprex] 1 gm PO BID #0 08/13/20 Famotidine 20 mg PO QHS 10/15/20 Lisinopril [Zestril] 10 mg PO DAILY 10/15/20 - Social History Tobacco Use: non-smoker Vital Signs Temp Pulse Resp BP Pulse Ox 97.9 F 75 16 114/58 L 100 02/09/21 08:12 02/09/21 08:12 02/09/21 08:12 02/09/21 08:12 02/09/21 08:12 Oxygen Flow Rate (L/min) 2 Oxygen Delivery Method Room Air Weight: 127.6 kg Body Mass Index (BMI) 43.2 Finger Stick Blood Glucose 150 Laboratory Tests Past 24 Hrs 02/08/21 02/08/21 02/08/21 17:15 17:15 17:15 WBC 4.4 RBC 2.71 L Hgb 6.9 L Hct 25.7 L MCV 94.8 MCH 25.5 L MCHC 26.8 L RDW Std Deviation 57.5 H RDW Coeff of Jessi 16.6 H Plt Count 342 MPV 9.0 Immature Gran % (Auto) 0.700 Neut % (Auto) 66.0 Lymph % (Auto) 18.0 L [place] % (Auto) 12.8 H Eos % (Auto) 1.8 Baso % (Auto) 0.7 Absolute Neuts (auto) 2.9 Absolute Lymphs (auto) 0.79 L Nucleated RBC % 0 Sodium 134 L Potassium 4.5 Chloride 106 Carbon Dioxide 23.0 Anion Gap 5 BUN 26 H Creatinine 1.59 H Estim Creat Clear Calc 30.19 Est GFR (MDRD) Af Amer 41 L Est GFR (MDRD) Non-Af 34 L BUN/Creatinine Ratio 16.4 Glucose 92 Calcium 8.2 L Phosphorus Magnesium Iron 45 L TIBC 278 Iron Saturation 16.2 Ferritin 20 Total Bilirubin 0.30 AST 20 ALT 12 L Alkaline Phosphatase 95 Total Protein 7.5 Albumin 1.6 L Globulin 5.9 H Albumin/Globulin Ratio 0.3 L Urine Color Urine Clarity Urine pH Ur Specific [place] Urine Protein Urine Glucose (UA) Urine Ketones Urine Occult Blood Urine Nitrite Urine Bilirubin Urine Urobilinogen Ur Leukocyte Esterase Urine RBC Urine WBC Ur Squamous Epith Cells Urine Bacteria Urine Mucus Blood Type Antibody Screen Crossmatch 02/08/21 02/08/21 02/09/21 17:54 22:15 06:00 WBC 4.6 RBC 3.18 L Hgb 8.2 L Hct 28.4 L MCV 89.3 D MCH 25.8 L MCHC 28.9 L D RDW Std Deviation 51.6 H RDW Coeff of Jessi 15.9 H Plt Count 404 MPV 9.2 Immature Gran % (Auto) 0.400 Neut % (Auto) 59.0 Lymph % (Auto) 20.7 [place] % (Auto) 15.9 H Eos % (Auto) 3.3 Baso % (Auto) 0.7 Absolute Neuts (auto) 2.7 Absolute Lymphs (auto) 0.95 Nucleated RBC % 0 Sodium Potassium Chloride Carbon Dioxide Anion Gap BUN Creatinine Estim Creat Clear Calc Est GFR (MDRD) Af Amer Est GFR (MDRD) Non-Af BUN/Creatinine Ratio Glucose Calcium Phosphorus Magnesium Iron TIBC Iron Saturation Ferritin Total Bilirubin AST ALT Alkaline Phosphatase Total Protein Albumin Globulin Albumin/Globulin Ratio Urine Color Yellow Urine Clarity Cloudy Urine pH 6.5 Ur Specific [place] 1.010 Urine Protein 100 H Urine Glucose (UA) Normal Urine Ketones Negative Urine Occult Blood 250 H Urine Nitrite Negative Urine Bilirubin Negative Urine Urobilinogen Normal Ur Leukocyte Esterase 500 H Urine RBC 0-5 SEEN Urine WBC >100 SEEN Ur Squamous Epith Cells 0 SEEN Urine Bacteria 1+ Urine Mucus 0 SEEN Blood Type A POSITIVE Antibody Screen NEGATIVE Crossmatch See Detail 02/09/21 06:00 WBC RBC Hgb Hct MCV MCH MCHC RDW Std Deviation RDW Coeff of Jessi Plt Count MPV Immature Gran % (Auto) Neut % (Auto) Lymph % (Auto) [place] % (Auto) Eos % (Auto) Baso % (Auto) Absolute Neuts (auto) Absolute Lymphs (auto) Nucleated RBC % Sodium 138 Potassium 3.8 Chloride 110 H Carbon Dioxide 23.0 Anion Gap 5 BUN 25 H Creatinine 1.50 H Estim Creat Clear Calc 32.00 Est GFR (MDRD) Af Amer 44 L Est GFR (MDRD) Non-Af 36 L BUN/Creatinine Ratio 16.7 Glucose 96 Calcium 8.2 L Phosphorus 3.5 Magnesium 2.2 Iron TIBC Iron Saturation Ferritin Total Bilirubin 0.30 AST 6 L ALT 11 L Alkaline Phosphatase 94 Total Protein 7.4 Albumin 1.6 L Globulin 5.8 H Albumin/Globulin Ratio 0.3 L Urine Color Urine Clarity Urine pH Ur Specific [place] Urine Protein Urine Glucose (UA) Urine Ketones Urine Occult Blood Urine Nitrite Urine Bilirubin Urine Urobilinogen Ur Leukocyte Esterase Urine RBC Urine WBC Ur Squamous Epith Cells Urine Bacteria Urine Mucus Blood Type Antibody Screen Crossmatch - Other Studies Radiology: [] reviewed Other Studies: [] Route of nutrition/ use of supplements: [] Nutritional Intake: [] IV Site: [] Henry Catheter: [] - Physical Exam General: Alert, Oriented x3, Cooperative, No apparent distress HEENT: Atraumatic, PERRLA, EOMI Neck: Supple, No Nodes Lungs: Clear to auscultation, Normal air movement Cardiovascular: Regular rate, Regular Rhythm Abdomen: Soft, Non Tender, Non-Distended, Obese Extremities: Edema Skin: Ulcer/ Wound - reviewed photo IV Site: Peripheral, without redness Musculoskeletal: No Tenderness to Palpation of Joints or Extremities Neurological: Cranial nerves II-XII grossly intact - Assessment/Plan Antibiotics: [] Assessment/Plan: [] Active and Suspected Problems (Last Reviewed 02/08/21 @ 21:04 by Kacie Booker, PROFESSOR OF MECHANICAL ENGINEERING-C) UTI (urinary tract infection) due to urinary indwelling catheter (Acute) Chronic gram negative bacteria recurrent uti - most recent cx with XDR pseudomonas, sens to aztreo. Cont azt reo, ucx pending. infected sacral ulcer - slowly improving overall, but new purulence, 02/05 cx with actinomyces and corynebacteria. Will cover with unasyn. Stop cefepime. Will follow, thank you
[2021-02-09] MEDS: Enoxaparin 40 MG/0.4 ML Syringe SC ×2 (10:33→21:34)
[2021-02-09] MEDS: Nystatin Powder 15gm Bottle 1 APPLIC TOPICAL ×2 (10:34→21:38)
--- NOTE | 2021-02-09 10:42 | PN_ITS ---
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 She is alert oriented x3. Denied fever or chills. She is due for her COVID-19 vaccination and will receive that today. Objective: Physical exam: General: Alert oriented x3, not pale, not jaundiced, morbidly obese HEENT: Atraumatic, PERRLA, EOMI, Normocephalic Neck: Supple, No JVD, Negative Carotid Bruits Lungs: Clear to auscultation, Normal air movement, Diminished Cardiovascular: Regular rate, Regular Rhythm, Normal S1, Normal S2, No murmurs Abdomen: Bowel Sounds Present, Soft, Non Tender, Obese, suprapubic catheter in place, no erythema Extremities: Capillary Refill Less than 3 Seconds, Edema, Peripheral Pulses Normal Skin: Ulcer/ Wound - Chronic wound to coccyx Musculoskeletal: No Tenderness to Palpation of Joints or Extremities Neurological: Cranial nerves II-XII grossly intact Psych/Mental Status: Flat Affect Vitals/I&O's: Vital Signs Temp Pulse Resp BP Pulse Ox 97.9 F 75 16 114/58 L 100 02/09/21 08:12 02/09/21 08:12 02/09/21 08:12 02/09/21 08:12 02/09/21 08:12 Oxygen Flow Rate (L/min) 2 Oxygen Delivery Method Room Air Weight: 127.6 kg Body Mass Index (BMI) 43.2 Finger Stick Blood Glucose 150 Intake and Output for Last 24 Hours 02/07/21 02/08/21 02/09/21 23:59 23:59 23:59 Intake Total 1100.25 / 1100.25 1581.75 / 1581.75 Output Total 1700 / 1700 Balance 1100.25 / -49.75 -118.25 / -118.25 Laboratory Results 02/08/21 17:15: WBC 4.4, RBC 2.71 L, Hgb 6.9 L, Hct 25.7 L, MCV 94.8, MCH 25.5 L , MCHC 26.8 L, RDW Std Deviation 57.5 H, RDW Coeff of Jessi 16.6 H, Plt Count 342, MPV 9.0, Immature Gran % (Auto) 0.700, Neut % (Auto) 66.0, Lymph % (Auto) 18.0 L , [place] % (Auto) 12.8 H, Eos % (Auto) 1.8, Baso % (Auto) 0.7, Absolute Neuts (auto) 2.9, Absolute Lymphs (auto) 0.79 L, Nucleated RBC % 0 02/08/21 17:15: Sodium 134 L, Potassium 4.5, Chloride 106, Carbon Dioxide 23.0, Anion Gap 5, BUN 26 H, Creatinine 1.59 H, Estim Creat Clear Calc 30.19, Est GFR (MDRD) Af Amer 41 L, Est GFR (MDRD) Non-Af 34 L, BUN/Creatinine Ratio 16.4, Glucose 92, Calcium 8.2 L, Total Bilirubin 0.30, AST 20, ALT 12 L, Alkaline Phosphatase 95, Total Protein 7.5, Albumin 1.6 L, Globulin 5.9 H, Albumin/Globulin Ratio 0.3 L 02/08/21 17:15: Iron 45 L, TIBC 278, Iron Saturation 16.2, Ferritin 20 02/08/21 17:54: Urine Color Yellow, Urine Clarity Cloudy, Urine pH 6.5, Ur Specific [place] 1.010, Urine Protein 100 H, Urine Glucose (UA) Normal, Urine Ketones Negative, Urine Occult Blood 250 H, Urine Nitrite Negative, Urine Bilirubin Negative, Urine Urobilinogen Normal, Ur Leukocyte Esterase 500 H, Urine RBC 0-5 SEEN, Urine WBC >100 SEEN, Ur Squamous Epith Cells 0 SEEN, Urine Bacteria 1+, Urine Mucus 0 SEEN 02/08/21 22:15: Blood Type A POSITIVE, Antibody Screen NEGATIVE, Crossmatch See Detail 02/08/21 22:46: POC Glucose 75 02/08/21 23:16: POC Glucose 79 02/09/21 00:01: POC Glucose 95 02/09/21 06:00: WBC 4.6, RBC 3.18 L, Hgb 8.2 L, Hct 28.4 L, MCV 89.3 D, MCH 25.8 L, MCHC 28.9 L D, RDW Std Deviation 51.6 H, RDW Coeff of Jessi 15.9 H, Plt Count 404, MPV 9.2, Immature Gran % (Auto) 0.400, Neut % (Auto) 59.0, Lymph % (Auto) 20.7, [place] % (Auto) 15.9 H, Eos % (Auto) 3.3, Baso % (Auto) 0.7, Absolute Neuts (auto) 2.7, Absolute Lymphs (auto) 0.95, Nucleated RBC % 0 02/09/21 06:00: Sodium 138, Potassium 3.8, Chloride 110 H, Carbon Dioxide 23.0, Anion Gap 5, BUN 25 H, Creatinine 1.50 H, Estim Creat Clear Calc 32.00, Est GFR (MDRD) Af Amer 44 L, Est GFR (MDRD) Non-Af 36 L, BUN/Creatinine Ratio 16.7, Gluc ose 96, Calcium 8.2 L, Phosphorus 3.5, Magnesium 2.2, Total Bilirubin 0.30, AST 6 L, ALT 11 L, Alkaline Phosphatase 94, Total Protein 7.4, Albumin 1.6 L, Globulin 5.8 H, Albumin/Globulin Ratio 0.3 L 02/09/21 06:33: POC Glucose 91 Current Medications Acetaminophen (Acetaminophen 325 Mg Tablet) 650 mg PO Q6H PRN PRN PRN Reason: Pain Score 1-10/Temp > 100.7 F Enoxaparin Sodium (Enoxaparin 40 Mg/0.4 Ml Syringe) 40 mg SC BID [facility] Last Admin: 02/09/21 10:33 Dose: 40 mg Documented by: Sodium Chloride () 1,000 mls @ 100 mls/hr IV .Q10H [facility] Last Admin: 02/09/21 08:22 Dose: 100 mls/hr Documented by: Aztreonam 1 gm/ Sodium (Chloride) 100 mls @ 150 mls/hr IV Q8 [facility] Last Infusion: 02/09/21 06:34 Dose: Infused Documented by: Sodium Chloride () 250 mls @ 15 mls/hr IV .[id number] PRN PRN Reason: Saline Flush Last Infusion: 02/09/21 06:34 Dose: 15 mls/hr Documented by: Sodium Chloride () 250 mls @ 15 mls/hr IV .[id number] PRN PRN Reason: Additional IVPB Infusion Ampicillin Sodium/Sulbactam (Sodium 3 gm/ Sodium Chloride) 112 mls @ 150 mls/hr IV Q8 [facility] Insulin Human Lispro (Insulin Lispro 100 Unit/Ml Insuln.Pen) 0 unit SC ACHS [facility]; Protocol Last Admin: 02/09/21 06:35 Dose: Not Given Documented by: Melatonin (Melatonin 3 Mg Tablet) 3 mg PO QHS PRN PRN PRN Reason: INSOMNIA Nystatin (Nystatin Powder 15gm Bottle) 1 applic TOPICAL BID [facility]; Protocol Last Admin: 02/09/21 10:34 Dose: 1 applic Documented by: Ondansetron HCl (Ondansetron 4 Mg/2 Ml Vial) 4 mg IV Q8H PRN PRN PRN Reason: NAUSEA/VOMITING Sodium Chloride (0.9% Saline Lock 10 Ml Syringe) 10 - 40 ml IV UD PRN PRN Reason: SALINE FLUSH Last Admin: 02/09/21 05:53 Dose: 10 ml Documented by: STROKE Vital Signs/Narrative: Vital Signs Temp Pulse Resp BP Pulse Ox 02/09/21 08:12 97.9 F 75 16 114/58 L 100 02/09/21 07:20 96 Medical Necessity - Tobacco Use Smoking Status: Never smoker Assessment/Plan All Active Problems (Last Reviewed 02/08/21 @ 21:04 by Kacie Booker, FINISHER TAILOR APPRENTICE-C) UTI (urinary tract infection) (Acute) Encephalopathy (Acute) UTI (urinary tract infection) due to urinary indwelling catheter (Acute) MICHAELLE (acute kidney injury) (Acute) Suprapubic catheter dysfunction (Resolved) 1. Acute metabolic encephalopathy secondary to acute UTI, resolved 2. Acute UTI secondary to chronic indwelling suprapubic catheter, improving No fevers seen overnight, WBC count is normal at 4.6. 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 Patient with bladder betadine washes at home; continue same. ID consulted Continue aztreonam 3. Acute on chronic infected sacral ulcer, patient follows up in the wound clinic with Dr. Dumont Wound cultures currently growing corynebacterium and actinomyces ID consulted, continue on IV Unasyn 4. Acute on chronic anemia, mixed, iron deficiency and anemia of chronic disease/kidney disease Admitted with hemoglobin of 6.9, status post packed RBC Repeat hemoglobin is 8.2, continue to monitor 5. Morbidly obese, BMI 44.1, lifestyle education recommended 6. Type II DM, blood sugars are controlled, home Metformin on hold, continue to monitor 7. Hypertension, BP controlled, continue to hold lisinopril for now 8. CKD stage III, Cr remains at the baseline, continue to monitor 9. VITA/depression/hyperlipidemia, all remain stable, continue to use BiPAP 10. Debility, related to recurrent UTIs, multiple comorbidities, patient will be an ideal candidate for palliative care. 11. DVT prophylaxis with Lovenox subcu Inpatient E&M: 83874 Subs Hosp L2
[2021-02-09 11:26] LABS: Bedside Glucose 113 mg/dL (70-110)
[2021-02-09] MEDS: Acetaminophen 325 MG Tablet 650 MG PO (11:42)
--- NOTE | 2021-02-09 12:15 | CASEMGMT ---
Palliative screening tool completed at this time. Patient meets criteria, hospitalist notified and agreeable to consult. Consult placed to palliative care at this time.
--- NOTE | 2021-02-09 12:25 | CASEMGMT ---
TONI MARTINES Face to Face with patient for initial transition planning/care coordination assessment. RN CONRAD introduced self and role at [facility]. Patient lying in bed, alert and oriented. Patient willing to participate in assessment and is able to answer all questions appropriately. Care providers, pharmacy, and demographics verified. Patient wishes to discharge home, denies need for home health at this time. Patient aware that if she should reconsider HHC she knows to follow-up with PCP. Patient states she has no further needs or concerns at this time. CM to follow for discharge planning needs that may arise. PCP: Bianca Specialists: Darryl urologist Preferred Pharmacy: [facility] Insurance: [facility], Human Prescription Benefit: yes Living Will/HPOA: yes sister Esperanza Ribeiro LNOK: sister Living Arrangements: Patient lives with caregiver in a single story home with no steps to enter the home. Caregiver assists with care. Transportation: sister, caregiver DME/HHC: Patient states she has sit to stand, grab bars, shower chair, hospital bed, electric WC, and oxygen 2lpm PRN through [employer]. Patient has had [facility] HHC in the past. Disposition Plan: Patient to discharge home with family support and follow-up plans in place. Asya CHUA, RN, CM
[2021-02-09] MEDS: Furosemide 20 MG Tablet PO (14:06)
--- NOTE | 2021-02-09 14:07 | CASEMGMT ---
Social Work Note Per muff winder questions, pt has completed HCPOA and LW and provided documents to [facility]. SW reviewed chart, Durable POA and LW on file. SW printed off copies and placed on pt's chart. SW in to speak with pt. SW updated pt that HCPOA is not on file. Pt states she would like to complete HCPOA. Pt completed HCPOA. Original provided to pt and copy placed on pt's chart. Asya Acosta AGRICULTURE WORKER, RELAY SHOP TESTER
[2021-02-09 16:26] LABS: Bedside Glucose 121 mg/dL (70-110)
[2021-02-09] MEDS: Pravastatin 20 MG Tablet PO (21:34)
[2021-02-09] MEDS: Famotidine 20 MG Tablet PO (21:34)
[2021-02-09] MEDS: Venlafaxine XR 150 MG Capsule PO (21:34)
[2021-02-09 21:40] LABS: Bedside Glucose 93 mg/dL (70-110)
[2021-02-10 04:10] VITALS: BP 131/59; PULSE 82; RESP 16; TEMP 36.8; O2SAT 97
[2021-02-10 05:57] LABS: Absolute Lymphocyte Count 0.89 X10^3/uL (0.83-4.51); Absolute Neutrophil Count 2.2 X10^3/uL (2.0-7.7); Basophil# 0.03 X10^3/uL; Basophil% 0.8 % (0-1); Eosinophil# 0.14 X10^3/uL; Eosinophils% 3.7 % (0-5); Hematocrit 26.1 % (37-47); Hemoglobin 7.7 g/dL (12.0-15.0); Lymphocyte # 0.89 X10^3/ul (4.0); Lymphocyte % 23.4 % (19-41); Mean Corp Hgb Conc 29.5 g/dL (32-36); Mean Corpuscular Hgb 25.8 pg (27.0-32.0); Mean Corpuscular Volume 87.3 fL (81-99); Mean Platelet Vol. 8.9 fl (6.2-12.0); Monocyte# 0.53 X10^3/uL; Monocyte% 13.9 % (0-10); NRBC Flagged by Analyzer 0 % (0-5); Neutrophil # 2.19 X10^3/uL (2.7-7.7); Neutrophil % 57.4 % (47-70); Platelet Count 345 K/mm3 (150-450); RBC Distribution Width CV 15.9 % (11.6-14.6); Red Blood Count 2.99 M/mm3 (4.2-5.4); White Blood Count 3.8 K/mm3 (4.4-11.0)
[2021-02-10 06:31] LABS: ALB/GLOB Ratio 0.2 RATIO (0.9-2.4); AST(SGOT) 10 U/L (15-37); Alanine Aminotransfer ALT/SGPT 9 U/L (13-56); Alkaline Phosphatase 88 U/L (45-117); Anion Gap 4 (5-15); BUN 23 mg/dL (7-18); BUN/Creat Ratio 14.3 RATIO (10-20); Calcium,Total 7.9 mg/dL (8.5-10.1); Chloride 110 mmol/L (98-107); Creatinine, Serum 1.61 mg/dL (0.55-1.02); EST Glomerular Filtration Rate 33 mL/min (>60); Est Glom Filt Rate - Afr Amer 40 mL/min (>60); Estimated Creatinine Clearance 29.81 ml/min; Globulin 5.7 g/dL (2.2-4.2); Glucose 84 mg/dL (74-106); Potassium 3.6 mmol/L (3.5-5.1); Protein, Total 6.7 g/dL (6.4-8.2); Sodium Level 135 mmol/L (136-145)
[2021-02-10] MEDS: 0.9% Saline Lock 10 ML Syringe IV (06:34)
[2021-02-10 06:46] LABS: Bedside Glucose 83 mg/dL (70-110)
[2021-02-10 07:00] VITALS: O2SAT 96
--- NOTE | 2021-02-10 07:30 | PCM.PN.HOSP ---
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 She had her second COVID-19 vaccination yesterday with no issues. No new complaints. Urine cultures are pending. Objective: Physical exam: General: Alert oriented x3, not pale, not jaundiced, morbidly obese HEENT: Atraumatic, PERRLA, EOMI, Normocephalic Neck: Supple, No JVD, Negative Carotid Bruits Lungs: Clear to auscultation, Normal air movement, Diminished Cardiovascular: Regular rate, Regular Rhythm, Normal S1, Normal S2, No murmurs Abdomen: Bowel Sounds Present, Soft, Non Tender, Obese, suprapubic catheter in place, no erythema Extremities: Capillary Refill Less than 3 Seconds, Edema, Peripheral Pulses Normal Skin: Ulcer/ Wound - Chronic wound to coccyx Musculoskeletal: No Tenderness to Palpation of Joints or Extremities Neurological: Cranial nerves II-XII grossly intact Psych/Mental Status: Flat Affect Vitals/I&O's: Vital Signs Temp Pulse Resp BP Pulse Ox 98.2 F 82 16 131/59 H 96 02/10/21 04:10 02/10/21 04:10 02/10/21 04:10 02/10/21 04:10 02/10/21 07:00 Oxygen Flow Rate (L/min) 2 Oxygen Delivery Method Room Air Weight: 127.6 kg Body Mass Index (BMI) 43.2 Finger Stick Blood Glucose 150 Intake and Output for Last 24 Hours 02/08/21 02/09/21 02/10/21 23:59 23:59 23:59 Intake Total 1100.25 / 1100.25 3090.00 / 3090.00 240.25 / 240.25 Output Total 2550 / 3650 2200 / 2200 Balance 1100.25 / -49.75 540.00 / -560.00 -1959.75 / -1959.75 Microbiology Past 72 Hours 02/08/21 17:54 Urine Catheter - Catheter Urine Culture - Preliminary GNR lactose automatic glove turner and former Gram negative odin Laboratory Results 02/09/21 11:19: POC Glucose 113 H 02/09/21 16:11: POC Glucose 121 H 02/09/21 21:26: POC Glucose 93 02/10/21 05:36: WBC 3.8 L, RBC 2.99 L, Hgb 7.7 L, Hct 26.1 L, MCV 87.3, MCH 25.8 L, MCHC 29.5 L, RDW Std Deviation 51.0 H, RDW Coeff of Jessi 15.9 H, Plt Count 345, MPV 8.9, Immature Gran % (Auto) 0.800, Neut % (Auto) 57.4, Lymph % (Auto) 23.4, [place] % (Auto) 13.9 H, Eos % (Auto) 3.7, Baso % (Auto) 0.8, Absolute Neuts (auto) 2.2, Absolute Lymphs (auto) 0.89, Nucleated RBC % 0 02/10/21 05:36: Sodium 135 L, Potassium 3.6, Chloride 110 H, Carbon Dioxide 21.0, Anion Gap 4 L, BUN 23 H, Creatinine 1.61 H, Estim Creat Clear Calc 29.81, Est GFR (MDRD) Af Amer 40 L, Est GFR (MDRD) Non-Af 33 L, BUN/Creatinine Ratio 14.3, Glucose 84, Calcium 7.9 L, Total Bilirubin 0.20, AST 10 L, ALT 9 L, Alkaline Phosphatase 88, Total Protein 6.7, Albumin 1.0 L, Globulin 5.7 H, Albumin/Globulin Ratio 0.2 L 02/10/21 06:31: POC Glucose 83 Current Medications Acetaminophen (Acetaminophen 325 Mg Tablet) 650 mg PO Q6H PRN PRN PRN Reason: Pain Score 1-10/Temp > 100.7 F Last Admin: 02/09/21 11:42 Dose: 650 mg Documented by: Albuterol Sulfate (Albuterol 2.5 Mg/3 Ml Vial.Neb.) 2.5 mg INHALATION Q4H PRN PRN PRN Reason: SOB &/OR WHEEZING Aspirin (Aspirin 81 Mg Tab.Chew) 81 mg PO DAILY@0800 [facility] Enoxaparin Sodium (Enoxaparin 40 Mg/0.4 Ml Syringe) 40 mg SC BID [facility] Last Admin: 02/09/21 21:34 Dose: 40 mg Documented by: Famotidine (Famotidine 20 Mg Tablet) 20 mg PO QHS [facility] Last Admin: 02/09/21 21:34 Dose: 20 mg Documented by: Furosemide (Furosemide 20 Mg Tablet) 20 mg PO BID [facility] Aztreonam 1 gm/ Sodium (Chloride) 100 mls @ 150 mls/hr IV Q8 [facility] Last Infusion: 02/10/21 07:30 Dose: 150 mls/hr Documented by: Sodium Chloride () 250 mls @ 15 mls/hr IV .[id number] PRN PRN Reason: Saline Flush Last Infusion: 02/09/21 23:10 Dose: 15 mls/hr Documented by: Sodium Chloride () 250 mls @ 15 mls/hr IV .[id number] PRN PRN Reason: Additional IVPB Infusion Ampicillin Sodium/Sulbactam (Sodium 3 gm/ Sodium Chloride) 112 mls @ 150 mls/hr IV Q8 [facility] Last Infusion: 02/10/21 07:30 Dose: Infused Documented by: Insulin Human Lispro (Insulin Lispro 100 Unit/Ml Insuln.Pen) 0 unit SC ACHS [facility]; Protocol Last Admin: 02/10/21 06:37 Dose: Not Given Documented by: Melatonin (Melatonin 3 Mg Tablet) 3 mg PO QHS PRN PRN PRN Reason: INSOMNIA Nystatin (Nystatin Powder 15gm Bottle) 1 applic TOPICAL BID [facility]; Protocol Last Admin: 02/09/21 21:38 Dose: 1 applic Documented by: Ondansetron HCl (Ondansetron 4 Mg/2 Ml Vial) 4 mg IV Q8H PRN PRN PRN Reason: NAUSEA/VOMITING Pravastatin Sodium (Pravastatin 20 Mg Tablet) 20 mg PO QHS [facility] Last Admin: 02/09/21 21:34 Dose: 20 mg Documented by: Sodium Chloride (0.9% Saline Lock 10 Ml Syringe) 10 - 40 ml IV UD PRN PRN Reason: SALINE FLUSH Last Admin: 02/10/21 06:34 Dose: 10 ml Documented by: Venlafaxine HCl (Venlafaxine Xr 150 Mg Capsule) 150 mg PO BID [facility] Last Admin: 02/09/21 21:34 Dose: 150 mg Documented by: STROKE Vital Signs/Narrative: Vital Signs Temp Pulse Resp BP Pulse Ox 02/10/21 07:00 96 02/10/21 04:10 98.2 F 82 16 131/59 H 97 Medical Necessity - Tobacco Use Smoking Status: Never smoker Assessment/Plan All Active Problems (Last Reviewed 02/08/21 @ 21:04 by Kacie Booker, HANANE-C) UTI (urinary tract infection) (Acute) Encephalopathy (Acute) UTI (urinary tract infection) due to urinary indwelling catheter (Acute) MICHAELLE (acute kidney injury) (Acute) Suprapubic catheter dysfunction (Resolved) 1. Acute metabolic encephalopathy secondary to acute UTI, resolved 2. 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 ID following, continue on Aztreonam 3. Acute on chronic infected sacral ulcer, patient follows up in the wound clinic with Dr. Dumont Wound cultures currently growing corynebacterium and actinomyces ID following, continue on IV Unasyn 4. Acute on chronic anemia, mixed, iron deficiency and anemia of chronic disease/kidney disease Admitted with hemoglobin of 6.9, status post 1 unit packed RBC Repeat hemoglobin is 7.7, drop from 8.2 Will check FOBT, will increase famotidine to 20mg BID 5. Morbidly obese, BMI 44.1, lifestyle education recommended 6. Type II DM, blood sugars are controlled, home Metformin on hold, continue to monitor 7. Hypertension, BP controlled, continue to hold lisinopril for now 8. CKD stage III, Cr remains at the baseline, continue to monitor 9. VITA/depression/hyperlipidemia, all remain stable, continue to use BiPAP 10. Debility, related to recurrent UTIs, multiple comorbidities, palliative care consulted 11. DVT prophylaxis with Lovenox subcu Inpatient E&M: 45603 Subs Hosp L2
[2021-02-10 08:23] VITALS: BP 136/57; PULSE 81; RESP 16; TEMP 36.7; O2SAT 99
[2021-02-10] MEDS: Aspirin 81 MG TAB.CHEW PO (09:00)
[2021-02-10] MEDS: Venlafaxine XR 150 MG Capsule PO ×2 (09:01→21:40)
[2021-02-10] MEDS: Enoxaparin 40 MG/0.4 ML Syringe SC ×2 (09:03→21:41)
[2021-02-10] MEDS: Furosemide 20 MG Tablet PO ×2 (09:03→21:40)
[2021-02-10] MEDS: Nystatin Powder 15gm Bottle 1 APPLIC TOPICAL (09:04)
--- NOTE | 2021-02-10 10:06 | PCM.CONS.P ---
Problem List (1) Chronic pain Status: Chronic Qualifiers: Chronic pain type: other chronic pain Qualified Code(s): G89.29 - Other chronic pain (2) Depression Status: Chronic Qualifiers: Depression Type: major depressive disorder Major depression recurrence: recurrent Active/Remission status: currently active Major depression episode severity: moderate Qualified Code(s): F33.1 - Major depressive disorder, recurrent, moderate (3) UTI (urinary tract infection) due to urinary indwelling catheter Status: Acute Qualifiers: Comment: Chronic gram negative bacteria History of Present Illness Date of Consult: 02/10/21 Reason for Consult: Palliative care Requesting physician: Dr. Montelongo Primary care physician: Dr. Colby Valenzuela, DO - History of Present Illness The patient is a 75 year old F admitted to [facility] on 02/08/2021 for sepsis and encephalopathy secondary to a UTI related to a chronic indwelling Henry catheter. She has had multiple hospitalizations due to recurrent UTIs since 2009 at which time she was hospitalized with septic shock from a UTI and notes that she was in a coma at that time. Extensive past medical history includes anemia, morbid obesity, type 2 diabetes, hypertension, CKD stage III, VITA, depression, anxiety, hyperlipidemia, and functional dysfunction. She is connected with Dr. Domínguez, who manages her chronic indwelling suprapubic catheter and his recently instituted orders for diluted Betadine flushes every other day and monthly catheter changes. She is also connected with infectious disease, who has managed antibiotics for these recurrent infections as well as history of drug-resistant Pseudomonas and Proteus infections. Samra also has a current stage III pressure ulcer to her coccyx for which she is undergoing outpatient wound care treatment. Palliative medicine is consulted given her recurrent hospitalizations, functional debility, and multiple comorbidities. Samra does describe a significant component of chronic neuropathic pain, likely a long-term side effect of her diabetes and other chronic comorbidities. She notes that she has been evaluated for fibromyalgia and has pain in her neck and shoulder area, burning pain in her hands (R>L), and a sensation of electrical charges in her B/L feet. A recent trial of Cymbalta was ineffective in providing relief of any of the symptoms and caused her to have hallucinations. Patient Problems: Chronic Problems (Last Reviewed 02/08/21 @ 21:04 by Kacie Booker, HANANE-C) Wheelchair dependence (Chronic) Anemia (Chronic) Pressure ulcer of left thigh (Chronic) [id number] kidney injury (Chronic) Hypertension (Chronic) Diabetes mellitus type 2 in obese (Chronic) Acute on chronic anemia (Chronic) Chronic kidney disease, stage 3a (Chronic) Chronic pain (Chronic) History of atrial fibrillation (Chronic) Ulcer of abdomen wall with fat layer exposed (Chronic) Ulcer of left groin with fat layer exposed (Chronic) Pressure ulcer of coccygeal region, stage 3 (Chronic) Morbid obesity (Chronic) Anxiety and depression (Chronic) HLD (hyperlipidemia) (Chronic) Debility (Chronic) Depression (Chronic) VITA (obstructive sleep apnea) (Chronic) Candidal intertrigo (Chronic) Surgical History: cholecystectomy, hysterectomy, - - Suprapubic catheter placement. Psychiatric History: Anxiety, Bipolar, Depression Home Medications: Ambulatory Orders Medication Instructions Recorded Furosemide [Lasix] 20 mg PO TID 09/30/13 Albuterol Inhaler [Ventolin Hfa] 2 puff INHALATION Q4H PRN PRN 10/30/18 Gabapentin [Neurontin] 600 mg PO BID 10/30/18 Oxybutynin Chloride [Ditropan Xl] 15 mg PO DAILY 10/30/18 Pravastatin [Pravachol] 20 mg PO QHS 12/17/18 Duloxetine HCl 60 mg PO DINNER 03/22/19 Venlafaxine XR [Effexor Xr] 150 mg PO BID 07/02/19 Potassium Chloride Oral Tablet 10 meq PO DAILYCM 08/18/19 [K-Dur] Aspirin [Aspirin, Baby] 81 mg PO DAILY #0 [facility] 08/13/20 Methenamine Hippurate [Hiprex] 1 gm PO BID #0 08/13/20 Famotidine 20 mg PO QHS 10/15/20 Lisinopril [Zestril] 10 mg PO DAILY 10/15/20 Allergies adhesive tape Allergy (Verified 02/08/21 16:29) blisters Influenza Virus Vaccines Allergy (Verified 02/08/21 16:29) shortness of breath/severe wheezing iron Allergy (Verified 02/08/21 16:29) from IV form chest pressure and heart palpitations Sulfa (Sulfonamide Antibiotics) Allergy (Verified 02/08/21 16:29) Shortness of breath bactrim does not work for her-per pcp paperwork meloxicam [From Mobic] Adverse Reaction (Verified 02/08/21 16:29) gi upset seasonal allergies Allergy (Uncoded 02/08/21 16:29) Other Maternal History Items: Diabetes, Heart Disease - Her father had a CABG and CHF Paternal History Items: Heart Disease - Social History Lives: Alone - , 2 adult adopted children with intellectual disabilities, Friends - caregiver/friend lives in attached modular home Smoking Status: Never smoker Alcohol: None Drugs: None - Spiritual Assessment Has strong lito and considers herself a spiritual person Code Status: Full Code Review of Systems Constitutional: Reports: Weakness, Fatigue. Denies: Anorexia, Chills, Fever, Weight Change Eyes: Denies: Vision Change HEENT: Denies: Difficulty Hearing, Difficulty Swallowing, Dysphasia, Sore Throat Cardiovascular: Reports: Edema. Denies: Chest Pain, Orthopnea, Palpitations, Syncope Respiratory: Reports: Shortness of breath upon exertion. Denies: Cough, Wheezing Gastrointestinal: Denies: Abdominal Pain, Constipation, Diarrhea, Nausea, Vomiting Genitourinary: Reports: Dysuria, Hematuria Musculoskeletal: Reports: Foot Pain, Hand Pain, Neck Pain, Shoulder Pain. Denies: Leg Pain Skin: Reports: Wounds - current stage III to coccyx - undergoing OP treatment Neurological: Reports: Tingling. Denies: Change in Speech, Confusion, Focal weakness, Seizures Psychiatric: Reports: Anxiety, Depression Physical Exam Palliative Performance Scale %: 40 General: Alert, Oriented x3, Cooperative, No apparent distress, - - morbidly obese HEENT: Atraumatic, PERRLA, EOMI, Normocephalic Oral: Moist Mucosa, No Gingival or Mucosal Lesions/ Ulcerations Neck: Supple, No JVD Lungs: Clear to auscultation, Normal air movement, Diminished - in bases related to body habitus Cardiovascular: Regular rate, Regular Rhythm, Normal S1, Normal S2, No murmurs, No rub noted, No Gallop Abdomen: Bowel Sounds Present, Soft, Non Tender, Non-Distended, Bowel Sounds Not Present, Obese Extremities: No clubbing, No cyanosis, Capillary Refill Less than 3 Seconds, Edema - B/L hand and finger nonpitting edema, - - hands and feet are very pale Skin: Ulcer/ Wound - stage III to coccyx not visualized as dressing just changed Musculoskeletal: Muscle Wasting - B/L LE hypotonia and foot drop, - - nonambulatory, powerchair dependent Lymphatic: No Cervical, Supraclavicular, or Inguinal Adenopathy Neurological: Cranial nerves II-XII grossly intact, Neuro grossly intact Psych/Mental Status: Normal Affect, Appropriate, Alert and oriented to time, place, person, mood and affect Objective: Vital Signs Temp Pulse Resp BP Pulse Ox 98.1 F 81 16 136/57 H 99 02/10/21 08:23 02/10/21 08:23 02/10/21 08:23 02/10/21 08:23 02/10/21 08:23 Oxygen Flow Rate (L/min) 3 Oxygen Delivery Method Room Air Weight: 281 lb 4.957 oz Body Mass Index (BMI) 43.2 Finger Stick Blood Glucose 150 Intake and Output for Last 24 Hours 02/08/21 02/09/21 02/10/21 23:59 23:59 23:59 Intake Total 1100.25 / 1100.25 3090.00 / 3090.00 897.75 / 897.75 Output Total 2550 / 3650 2200 / 2200 Balance 1100.25 / -49.75 540.00 / -560.00 -1302.25 / -1302.25 Microbiology Past 72 Hours 02/08/21 17:54 Urine Culture - Preliminary Urine Catheter - Catheter GNR lactose plant production manager Gram negative odin Laboratory Tests Past 24 Hrs 02/10/21 02/10/21 05:36 05:36 WBC 3.8 L RBC 2.99 L Hgb 7.7 L Hct 26.1 L MCV 87.3 MCH 25.8 L MCHC 29.5 L RDW Std Deviation 51.0 H RDW Coeff of Jessi 15.9 H Plt Count 345 MPV 8.9 Immature Gran % (Auto) 0.800 Neut % (Auto) 57.4 Lymph % (Auto) 23.4 Grand % (Auto) 13.9 H Eos % (Auto) 3.7 Baso % (Auto) 0.8 Absolute Neuts (auto) 2.2 Absolute Lymphs (auto) 0.89 Nucleated RBC % 0 Sodium 135 L Potassium 3.6 Chloride 110 H Carbon Dioxide 21.0 Anion Gap 4 L BUN 23 H Creatinine 1.61 H Estim Creat Clear Calc 29.81 Est GFR (MDRD) Af Amer 40 L Est GFR (MDRD) Non-Af 33 L BUN/Creatinine Ratio 14.3 Glucose 84 Calcium 7.9 L Total Bilirubin 0.20 AST 10 L ALT 9 L Alkaline Phosphatase 88 Total Protein 6.7 Albumin 1.0 L Globulin 5.7 H Albumin/Globulin Ratio 0.2 L Assessment/Plan All Active Problems (Last Reviewed 02/08/21 @ 21:04 by Kacie Booker, HANANE-C) UTI (urinary tract infection) (Acute) Encephalopathy (Acute) UTI (urinary tract infection) due to urinary indwelling catheter (Acute) MICHAELLE (acute kidney injury) (Acute) Suprapubic catheter dysfunction (Resolved) Patient lives alone in a modular home with a second modular home attached in which her friend/full-time caregiver lives. She requires extensive assistance with mobility, bathing, and dressing. Patient is able to cook her own meals and feed herself. She is mobile throughout her home with the use of a power chair, but is unable to transfer herself. She does have a sit to stand machine and notes that she spends her entire day in her power chair until her caregiver assists her into bed for the night. 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 She is appropriately connected with multiple specialists including Dr. Lin, infectious disease, wound care/Dr. Dumont, Dr. Robertson (neuro), and PCP, Dr. Valenzuela. 1. Chronic neuropathic pain: Given the ineffectiveness of recent Cymbalta trial and current status of Effexor for management of her anxiety and depression, would not recommend another antidepressant or TCA. Would consider a low-dose of methadone and titration of gabapentin, as patient reports significant daytime fatigue that could be compounded by the gabapentin, which may also be providing very limited benefit. 2. Functional debility: Patient's ability to perform self-care is quite limited and she requires extensive assistance with most ADLs. Seems to have appropriate DME in place and caregiving assistance is in place. Continue participation with PT/OT, will likely benefit from home therapy. 3. Depression and anxiety: continue on currently prescribed Effexor. She reports that the Effexor takes the edge off. Patient is not connected with counselor or therapist and could likely benefit from some additional support. 4. Comorbid conditions that increase her risk of morbidity and mortality. Continue to follow up with specialists as above. I have offered the services of [facility] (formerly known as [facility]) following her discharge home. Pat will consider this additional service, and wishes for palliative medicine to follow up with her in a week or two. Thank you for the opportunity to participate in the care of this patient.
--- NOTE | 2021-02-10 10:35 | RAD_ITS ---
STUDY: X-RAY - RIGHT SHOULDER REASON FOR EXAM: Right shoulder pain with movement, right shoulder deformity. TECHNIQUE: 4 view(s) of the shoulder. COMPARISON: Radiographs 04/24/2014 and 10/26/2016. FINDINGS: Normal glenohumeral articulation. There is acromioclavicular arthrosis. Normal acromion. Normal humeral head and visualized proximal humerus. There is loss of the acromiohumeral distance suggestive of rotator cuff pathology. Normal visualized pulmonary apex. RAD/Shoulder min 2 Views IMPRESSION: Loss of the acromiohumeral distance as on the prior study suggestive of rotator cuff pathology. Acromioclavicular arthrosis. Electronically Signed: Camacho Da Silva MD at 13:55 EDT Tel , Service support ,
[2021-02-10 11:26] LABS: Bedside Glucose 105 mg/dL (70-110)
[2021-02-10 11:41] VITALS: BP 138/65; PULSE 82; RESP 16; TEMP 36.8; O2SAT 100
--- NOTE | 2021-02-10 12:52 | PN.ID_ITS ---
Patient Problems: Active and Suspected Problems (Last Reviewed 02/08/21 @ 21:04 by Kacie Booker NP-C) UTI (urinary tract infection) (Acute) UTI (urinary tract infection) due to urinary indwelling catheter (Acute) Chronic gram negative bacteria Subjective: Feeling ok, no fever, no abd pain - Physical Exam Vitals/I&O's: Vital Signs Temp Pulse Resp BP Pulse Ox 98.2 F 82 16 138/65 H 100 02/10/21 11:41 02/10/21 11:41 02/10/21 11:41 02/10/21 11:41 02/10/21 11:41 Oxygen Flow Rate (L/min) 3 Oxygen Delivery Method Room Air Weight: 127.6 kg Body Mass Index (BMI) 43.2 Finger Stick Blood Glucose 150 Intake and Output for Last 24 Hours 02/08/21 02/09/21 02/10/21 23:59 23:59 23:59 Intake Total 1100.25 / 1100.25 3090.00 / 3090.00 897.75 / 897.75 Output Total 2550 / 3650 2200 / 2200 Balance 1100.25 / -49.75 540.00 / -560.00 -1302.25 / -1302.25 General: Alert, Cooperative, No apparent distress Lungs: Clear to auscultation, Normal air movement Cardiovascular: Regular rate, Regular Rhythm Abdomen: Soft, Non Tender, Non-Distended Skin: Ulcer/ Wound Microbiology Past 72 Hours 02/08/21 17:54 Urine Catheter - Catheter Urine Culture - Preliminary GNR 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 Gram negative odin Laboratory Results 02/09/21 16:11: POC Glucose 121 H 02/09/21 21:26: POC Glucose 93 02/10/21 05:36: WBC 3.8 L, RBC 2.99 L, Hgb 7.7 L, Hct 26.1 L, MCV 87.3, MCH 25.8 L, MCHC 29.5 L, RDW Std Deviation 51.0 H, RDW Coeff of Jessi 15.9 H, Plt Count 345, MPV 8.9, Immature Gran % (Auto) 0.800, Neut % (Auto) 57.4, Lymph % (Auto) 23.4, [place] % (Auto) 13.9 H, Eos % (Auto) 3.7, Baso % (Auto) 0.8, Absolute Neuts (auto) 2.2, Absolute Lymphs (auto) 0.89, Nucleated RBC % 0 02/10/21 05:36: Sodium 135 L, Potassium 3.6, Chloride 110 H, Carbon Dioxide 21.0, Anion Gap 4 L, BUN 23 H, Creatinine 1.61 H, Estim Creat Clear Calc 29.81, Est GFR (MDRD) Af Amer 40 L, Est GFR (MDRD) Non-Af 33 L, BUN/Creatinine Ratio 14.3, Glucose 84, Calcium 7.9 L, Total Bilirubin 0.20, AST 10 L, ALT 9 L, Alkaline Phosphatase 88, Total Protein 6.7, Albumin 1.0 L, Globulin 5.7 H, Albumin/Globulin Ratio 0.2 L 02/10/21 06:31: POC Glucose 83 02/10/21 11:19: POC Glucose 105 Current Medications Acetaminophen (Acetaminophen 325 Mg Tablet) 650 mg PO Q6H PRN PRN PRN Reason: Pain Score 1-10/Temp > 100.7 F Last Admin: 02/09/21 11:42 Dose: 650 mg Documented by: Albuterol Sulfate (Albuterol 2.5 Mg/3 Ml Vial.Neb.) 2.5 mg INHALATION Q4H PRN PRN PRN Reason: SOB &/OR WHEEZING Aspirin (Aspirin 81 Mg Tab.Chew) 81 mg PO DAILY@0800 [facility] Last Admin: 02/10/21 09:00 Dose: 81 mg Documented by: Enoxaparin Sodium (Enoxaparin 40 Mg/0.4 Ml Syringe) 40 mg SC BID [facility] Last Admin: 02/10/21 09:03 Dose: 40 mg Documented by: Famotidine (Famotidine 20 Mg Tablet) 20 mg PO BID [facility] Furosemide (Furosemide 20 Mg Tablet) 20 mg PO BID [facility] Last Admin: 02/10/21 09:03 Dose: 20 mg Documented by: Aztreonam 1 gm/ Sodium (Chloride) 100 mls @ 150 mls/hr IV Q8 [facility] Last Infusion: 02/10/21 07:40 Dose: Infused Documented by: Sodium Chloride () 250 mls @ 15 mls/hr IV .[id number] PRN PRN Reason: Saline Flush Last Infusion: 02/10/21 07:40 Dose: 0 mls/hr Documented by: Sodium Chloride () 250 mls @ 15 mls/hr IV .[id number] PRN PRN Reason: Additional IVPB Infusion Ampicillin Sodium/Sulbactam (Sodium 3 gm/ Sodium Chloride) 112 mls @ 150 mls/hr IV Q8 [facility] Last Infusion: 02/10/21 07:30 Dose: Infused Documented by: Insulin Human Lispro (Insulin Lispro 100 Unit/Ml Insuln.Pen) 0 unit SC ACHS [facility]; Protocol Last Admin: 02/10/21 11:27 Dose: Not Given Documented by: Melatonin (Melatonin 3 Mg Tablet) 3 mg PO QHS PRN PRN PRN Reason: INSOMNIA Nystatin (Nystatin Powder 15gm Bottle) 1 applic TOPICAL BID [facility]; Protocol Last Admin: 02/10/21 09:04 Dose: 1 applic Documented by: Ondansetron HCl (Ondansetron 4 Mg/2 Ml Vial) 4 mg IV Q8H PRN PRN PRN Reason: NAUSEA/VOMITING Pravastatin Sodium (Pravastatin 20 Mg Tablet) 20 mg PO QHS [facility] Last Admin: 02/09/21 21:34 Dose: 20 mg Documented by: Sodium Chloride (0.9% Saline Lock 10 Ml Syringe) 10 - 40 ml IV UD PRN PRN Reason: SALINE FLUSH Last Admin: 02/10/21 06:34 Dose: 10 ml Documented by: Venlafaxine HCl (Venlafaxine Xr 150 Mg Capsule) 150 mg PO BID [facility] Last Admin: 02/10/21 09:01 Dose: 150 mg Documented by: Medical Necessity - Tobacco Use Smoking Status: Never smoker Route of nutrition/ use of supplements: [] Nutritional Intake: [] IV Site: [] Henry Catheter: [] - Assessment/Plan Antibiotics: [] Assessment/Plan: [] Active and Suspected Problems (Last Reviewed 02/08/21 @ 21:04 by Kacie Booker, HAIR OR BEAUTY SALON ASSISTANT-C) UTI (urinary tract infection) due to urinary indwelling catheter (Acute) Chronic gram negative bacteria recurrent uti - most recent cx with XDR pseudomonas, sens to aztreo. Cont aztreo, ucx with GNR x2. infected sacral ulcer - slowly improving overall, but new purulence, 02/05 cx with actinomyces and corynebacteria. Will change unasyn to augmentin. Will follow
[2021-02-10] MEDS: Amox/Clavulanate 875 MG Tablet PO ×2 (14:20→21:40)
[2021-02-10] MEDS: Ondansetron 4 MG/2 ML Vial IV (14:21)
[2021-02-10 15:51] LABS: Bedside Glucose 104 mg/dL (70-110)
[2021-02-10 15:52] VITALS: BP 153/62; PULSE 87; RESP 18; TEMP 36.7; O2SAT 97
[2021-02-10 21:15] VITALS: BP 119/59; PULSE 97; RESP 16; TEMP 36.9; O2SAT 99
[2021-02-10] MEDS: Pravastatin 20 MG Tablet PO (21:40)
[2021-02-10] MEDS: Famotidine 20 MG Tablet PO (21:40)
[2021-02-10 21:51] LABS: Bedside Glucose 88 mg/dL (70-110)
[2021-02-10] MEDS: Acetaminophen 325 MG Tablet 650 MG PO (22:51)
--- NOTE | 2021-02-10 23:55 | CPS ---
Pt. states that she's supposed to wear CPAP/BiPAP at nights, but she isn't compliant. She states that she wears 2L nasal cannula continuously, and she has no interest wearing CPAP/BiPAP while at [facility]. Pt. isn't in any distress at this time, and she is resting comfortably.
[2021-02-11] VITALS (9 sets, daily range): BP systolic 123–149; BP diastolic 67–82; PULSE 80–98; RESP 16–18; TEMP 36.3–37; O2SAT 96–100
[2021-02-11] MEDS: Docusate Sodium 100 MG Capsule PO ×3 (02:20→22:23)
[2021-02-11 06:14] LABS: Absolute Lymphocyte Count 1.05 X10^3/uL (0.83-4.51); Absolute Neutrophil Count 2.6 X10^3/uL (2.0-7.7); Basophil# 0.03 X10^3/uL; Basophil% 0.7 % (0-1); Eosinophils% 4.5 % (0-5); Hematocrit 24.5 % (37-47); Lymphocyte # 1.05 X10^3/ul (4.0); Lymphocyte % 23.5 % (19-41); Mean Corp Hgb Conc 28.6 g/dL (32-36); Mean Corpuscular Hgb 25.3 pg (27.0-32.0); Mean Corpuscular Volume 88.4 fL (81-99); Monocyte# 0.52 X10^3/uL; Monocyte% 11.6 % (0-10); NRBC Flagged by Analyzer 0 % (0-5); Neutrophil # 2.62 X10^3/uL (2.7-7.7); Neutrophil % 58.6 % (47-70); Platelet Count 388 K/mm3 (150-450); RBC Distribution Width CV 16.2 % (11.6-14.6); RBC Distribution Width SD 51.7 fl (35.1-43.9); Red Blood Count 2.77 M/mm3 (4.2-5.4); White Blood Count 4.5 K/mm3 (4.4-11.0)
[2021-02-11 06:35] LABS: Bedside Glucose 81 mg/dL (70-110)
[2021-02-11 06:45] LABS: ALB/GLOB Ratio 0.3 RATIO (0.9-2.4); AST(SGOT) 7 U/L (15-37); Alanine Aminotransfer ALT/SGPT 9 U/L (13-56); Albumin, Serum 1.4 g/dL (3.2-5.0); Alkaline Phosphatase 81 U/L (45-117); Anion Gap 5 (5-15); BUN 22 mg/dL (7-18); BUN/Creat Ratio 16.2 RATIO (10-20); Calcium,Total 7.8 mg/dL (8.5-10.1); Chloride 106 mmol/L (98-107); Creatinine, Serum 1.36 mg/dL (0.55-1.02); EST Glomerular Filtration Rate 40 mL/min (>60); Est Glom Filt Rate - Afr Amer 49 mL/min (>60); Estimated Creatinine Clearance 35.29 ml/min; Globulin 5.2 g/dL (2.2-4.2); Glucose 89 mg/dL (74-106); Protein, Total 6.6 g/dL (6.4-8.2); Sodium Level 136 mmol/L (136-145)
[2021-02-11] MEDS: Venlafaxine XR 150 MG Capsule PO ×2 (09:09→22:24)
[2021-02-11] MEDS: Aspirin 81 MG TAB.CHEW PO (09:09)
[2021-02-11] MEDS: Amox/Clavulanate 875 MG Tablet PO ×2 (09:09→22:24)
[2021-02-11] MEDS: Furosemide 20 MG Tablet PO ×2 (09:09→22:23)
[2021-02-11] MEDS: Famotidine 20 MG Tablet PO ×2 (09:09→22:23)
[2021-02-11] MEDS: Nystatin Powder 15gm Bottle 1 APPLIC TOPICAL (09:10)
[2021-02-11] MEDS: Enoxaparin 40 MG/0.4 ML Syringe SC ×2 (09:16→22:24)
--- NOTE | 2021-02-11 10:32 | PCM.PN.ID ---
Patient Problems: Active and Suspected Problems (Last Reviewed 02/08/21 @ 21:04 by Kacie Booker NP-C) UTI (urinary tract infection) (Acute) UTI (urinary tract infection) due to urinary indwelling catheter (Acute) Chronic gram negative bacteria Subjective: Feeling better, no fever, no abd pain - Physical Exam Vitals/I&O's: Vital Signs Temp Pulse Resp BP Pulse Ox 98.0 F 92 18 130/67 H 99 02/11/21 09:25 02/11/21 09:25 02/11/21 09:25 02/11/21 09:25 02/11/21 09:25 Oxygen Flow Rate (L/min) 2 Oxygen Delivery Method Nasal Cannula Weight: 128.9 kg Body Mass Index (BMI) 43.2 Finger Stick Blood Glucose 150 Intake and Output for Last 24 Hours 02/09/21 02/10/21 02/11/21 23:59 23:59 23:59 Intake Total 3090.00 / 3090.00 2447.75 / 2447.75 121.5 / 121.5 Output Total 2550 / 3650 4100 / 4100 1325 / 1325 Balance 540.00 / -560.00 -1652.25 / -1652.25 -1203.5 / -1203.5 General: Alert, Cooperative, No apparent distress Lungs: Clear to auscultation, Normal air movement Cardiovascular: Regular rate, Regular Rhythm Abdomen: Soft, Non Tender, Non-Distended Skin: No rashes Microbiology Past 72 Hours 02/08/21 17:54 Urine Catheter - Catheter Urine Culture - Final Escherichia coli Proteus mirabilis Laboratory Results 02/08/21 22:15: Blood Type A POSITIVE, Antibody Screen NEGATIVE, Crossmatch See Detail 02/10/21 11:19: POC Glucose 105 02/10/21 15:42: POC Glucose 104 02/10/21 21:38: POC Glucose 88 02/11/21 05:10: WBC 4.5, RBC 2.77 L, Hgb 7.0 L, Hct 24.5 L, MCV 88.4, MCH 25.3 L, MCHC 28.6 L, RDW Std Deviation 51.7 H, RDW Coeff of Jessi 16.2 H, Plt Count 388, MPV 9.0, Immature Gran % (Auto) 1.100 H, Neut % (Auto) 58.6, Lymph % (Auto) 23.5, [place] % (Auto) 11.6 H, Eos % (Auto) 4.5, Baso % (Auto) 0.7, Absolute Neuts (auto) 2.6, Absolute Lymphs (auto) 1.05, Nucleated RBC % 0 02/11/21 05:10: Sodium 136, Potassium 4.0, Chloride 106, Carbon Dioxide 25.0, Anion Gap 5, BUN 22 H, Creatinine 1.36 H, Estim Creat Clear Calc 35.29, Est GFR (MDRD) Af Amer 49 L, Est GFR (MDRD) Non-Af 40 L, BUN/Creatinine Ratio 16.2, Glucose 89, Calcium 7.8 L, Total Bilirubin 0.20, AST 7 L, ALT 9 L, Alkaline Phosphatase 81, Total Protein 6.6, Albumin 1.4 L, Globulin 5.2 H, Albumin/Globulin Ratio 0.3 L 02/11/21 06:19: POC Glucose 81 Current Medications Acetaminophen (Acetaminophen 325 Mg Tablet) 650 mg PO Q6H PRN PRN PRN Reason: Pain Score 1-10/Temp > 100.7 F Last Admin: 02/10/21 22:51 Dose: 650 mg Documented by: Albuterol Sulfate (Albuterol 2.5 Mg/3 Ml Vial.Neb.) 2.5 mg INHALATION Q4H PRN PRN PRN Reason: SOB &/OR WHEEZING Amoxicillin/Clavulanate Potassium (Amox/Clavulanate 875 Mg Tablet) 875 mg PO BID [facility] Last Admin: 02/11/21 09:09 Dose: 875 mg Documented by: Aspirin (Aspirin 81 Mg Tab.Chew) 81 mg PO DAILY@0800 [facility] Last Admin: 02/11/21 09:09 Dose: 81 mg Documented by: Docusate Sodium (Docusate Sodium 100 Mg Capsule) 100 mg PO BID [facility] Last Admin: 02/11/21 09:12 Dose: 100 mg Documented by: Enoxaparin Sodium (Enoxaparin 40 Mg/0.4 Ml Syringe) 40 mg SC BID [facility] Last Admin: 02/11/21 09:16 Dose: 40 mg Documented by: Famotidine (Famotidine 20 Mg Tablet) 20 mg PO BID [facility] Last Admin: 02/11/21 09:09 Dose: 20 mg Documented by: Furosemide (Furosemide 20 Mg Tablet) 20 mg PO BID [facility] Last Admin: 02/11/21 09:09 Dose: 20 mg Documented by: Sodium Chloride () 250 mls @ 15 mls/hr IV .[id number] PRN PRN Reason: Saline Flush Last Infusion: 02/11/21 00:07 Dose: Infused Documented by: Sodium Chloride () 250 mls @ 15 mls/hr IV .[id number] PRN PRN Reason: Additional IVPB Infusion Insulin Human Lispro (Insulin Lispro 100 Unit/Ml Insuln.Pen) 0 unit SC ACHS [facility]; Protocol Last Admin: 02/11/21 06:20 Dose: Not Given Documented by: Melatonin (Melatonin 3 Mg Tablet) 3 mg PO QHS PRN PRN PRN Reason: INSOMNIA Nystatin (Nystatin Powder 15gm Bottle) 1 applic TOPICAL BID [facility]; Protocol Last Admin: 02/11/21 09:10 Dose: 1 applic Documented by: Ondansetron HCl (Ondansetron 4 Mg/2 Ml Vial) 4 mg IV Q8H PRN PRN PRN Reason: NAUSEA/VOMITING Last Admin: 02/10/21 14:21 Dose: 4 mg Documented by: Pravastatin Sodium (Pravastatin 20 Mg Tablet) 20 mg PO QHS [facility] Last Admin: 02/10/21 21:40 Dose: 20 mg Documented by: Sodium Chloride (0.9% Saline Lock 10 Ml Syringe) 10 - 40 ml IV UD PRN PRN Reason: SALINE FLUSH Last Admin: 02/10/21 06:34 Dose: 10 ml Documented by: Venlafaxine HCl (Venlafaxine Xr 150 Mg Capsule) 150 mg PO BID [facility] Last Admin: 02/11/21 09:09 Dose: 150 mg Documented by: Medical Necessity - Tobacco Use Smoking Status: Never smoker Route of nutrition/ use of supplements: [] Nutritional Intake: [] IV Site: [] Henry Catheter: [] - Assessment/Plan Antibiotics: [] Assessment/Plan: [] Active and Suspected Problems (Last Reviewed 02/08/21 @ 21:04 by Kacie Booker NP-C) UTI (urinary tract infection) due to urinary indwelling catheter (Acute) Chronic gram negative bacteria recurrent uti - most recent cx with XDR pseudomonas, sens to aztreo. Ucx with ecoli and proteus, will stop aztreonam. Covered by augmentin. Ok for discharge on 5 more days of augmentin. infected sacral ulcer - slowly improving overall, but new purulence, 02/05 cx with actinomyces and corynebacteria. Cont augmentin. Will follow as needed
[2021-02-11 11:45] LABS: Bedside Glucose 105 mg/dL (70-110)
--- NOTE | 2021-02-11 14:00 | CASEMGMT ---
RN CM in to pt room to verify with patient that she felt she could go home without services. Pt friend at bedside. Pt states her cg is going to be out of town for a week starting this Monday and she thought she had care lined up but it fell through. Pt asking about services to have someone come to the home to assist her. She states she does not have the funds for private duty. She is aware that HHC is skilled, intermittent which would not be enough help. Pt asks if she could go to TCU as she is bleeding from somewhere and they don't know where. This CM made pt aware that the SW would be notified to come in to discuss that option. Pt agreeable to this. Notified Anuradha GRIFFIN. CM to follow for safe discharge.
--- NOTE | 2021-02-11 14:29 | CASEMGMT ---
Social Work Note SW received referral for SNF placement and pt's preferred provider is [facility]. SW placed a call to referral line and provided referral. Karen state she will possibly have a bed available tomorrow, for sure on Monday. Pt is on TCU list. SW in to speak with pt. Patient was provided a list of SNF providers including quality and resource use data and consistent with the patient?s preferred geographic region, medical needs, and insurance network. Pt's preferred provider is [facility]. SW informed pt that at this time, TCU will not have a bed until Monday (maybe Monday but is not confirmed) so if pt is medically cleared for discharge tomorrow and TCU has no beds pt will not be able to go to TCU. Pt states understanding. SW asked pt about living environment. Pt states she has no concerns with her living environment. Plan: Pt is on TCU list. Asya Acosta COMMUNICATIONS MAINTAINER, TNT POWDER WORKER
[2021-02-11] MEDS: Acetaminophen 325 MG Tablet 650 MG PO (14:31)
--- NOTE | 2021-02-11 15:01 | PN_ITS ---
Patient Problems: Active and Suspected Problems (Last Reviewed 02/08/21 @ 21:04 by Kacie Booker, HANANE-C) UTI (urinary tract infection) (Acute) UTI (urinary tract infection) due to urinary indwelling catheter (Acute) Chronic gram negative bacteria Reason for Visit: Follow-up on acute metabolic encephalopathy/recurrent UTI Subjective: Patient was seen and examined. She denied any melena stools or hematochezia. She thinks she may be losing blood from her urine. Her urine has been dark but thought to be residual from her Betadine washes. She however feels generally improved. She also reported to case management that her caregiver will be traveling will not be available at the time of discharge. human services worker had followed up on discharge planning, [facility]. Objective: Physical exam: General: Alert oriented x3, not pale, not jaundiced, morbidly obese HEENT: Atraumatic, PERRLA, EOMI, Normocephalic Neck: Supple, No JVD, Negative Carotid Bruits Lungs: Clear to auscultation, Normal air movement, Diminished Cardiovascular: Regular rate, Regular Rhythm, Normal S1, Normal S2, No murmurs Abdomen: Bowel Sounds Present, Soft, Non Tender, Obese, suprapubic catheter in place, no erythema Extremities: Capillary Refill Less than 3 Seconds, Edema, Peripheral Pulses Normal Skin: Ulcer/ Wound - Chronic wound to coccyx, improving Musculoskeletal: No Tenderness to Palpation of Joints or Extremities Neurological: Cranial nerves II-XII grossly intact Psych/Mental Status: Flat Affect Vitals/I&O's: Vital Signs Temp Pulse Resp BP Pulse Ox 97.8 F 80 18 130/67 H 100 02/11/21 12:00 02/11/21 12:00 02/11/21 12:00 02/11/21 12:02/11/21 12:00 Oxygen Flow Rate (L/min) 2 Oxygen Delivery Method Nasal Cannula Weight: 128.9 kg Body Mass Index (BMI) 43.2 Finger Stick Blood Glucose 150 Intake and Output for Last 24 Hours 02/09/21 02/10/21 02/11/21 23:59 23:59 23:59 Intake Total 3090.00 / 3090.00 2447.75 / 2447.75 1701.5 / 1701.5 Output Total 2550 / 3650 4100 / 4100 2425 / 2425 Balance 540.00 / -560.00 -1652.25 / -1652.25 -723.5 / -723.5 Microbiology Past 72 Hours 02/11/21 12:15 Stool Stool Occult Blood (WENDI) - Final 02/08/21 17:54 Urine Catheter - Catheter Urine Culture - Final Escherichia coli Proteus mirabilis Laboratory Results 02/08/21 22:15: Blood Type A POSITIVE, Antibody Screen NEGATIVE, Crossmatch See Detail 02/10/21 15:42: POC Glucose 104 02/10/21 21:38: POC Glucose 88 02/11/21 05:10: WBC 4.5, RBC 2.77 L, Hgb 7.0 L, Hct 24.5 L, MCV 88.4, MCH 25.3 L , MCHC 28.6 L, RDW Std Deviation 51.7 H, RDW Coeff of Jessi 16.2 H, Plt Count 388, MPV 9.0, Immature Gran % (Auto) 1.100 H, Neut % (Auto) 58.6, Lymph % (Auto) 23.5, Gilliam % (Auto) 11.6 H, Eos % (Auto) 4.5, Baso % (Auto) 0.7, Absolute Neuts (auto) 2.6, Absolute Lymphs (auto) 1.05, Nucleated RBC % 0 02/11/21 05:10: Sodium 136, Potassium 4.0, Chloride 106, Carbon Dioxide 25.0, Anion Gap 5, BUN 22 H, Creatinine 1.36 H, Estim Creat Clear Calc 35.29, Est GFR (MDRD) Af Amer 49 L, Est GFR (MDRD) Non-Af 40 L, BUN/Creatinine Ratio 16.2, Glucose 89, Calcium 7.8 L, Total Bilirubin 0.20, AST 7 L, ALT 9 L, Alkaline Phosphatase 81, Total Protein 6.6, Albumin 1.4 L, Globulin 5.2 H, Albumin/Globulin Ratio 0.3 L 02/11/21 06:19: POC Glucose 81 02/11/21 11:36: POC Glucose 105 Current Medications Acetaminophen (Acetaminophen 325 Mg Tablet) 650 mg PO Q6H PRN PRN PRN Reason: Pain Score 1-10/Temp > 100.7 F Last Admin: 02/11/21 14:31 Dose: 650 mg Documented by: Albuterol Sulfate (Albuterol 2.5 Mg/3 Ml Vial.Neb.) 2.5 mg INHALATION Q4H PRN PRN PRN Reason: SOB &/OR WHEEZING Amoxicillin/Clavulanate Potassium (Amox/Clavulanate 875 Mg Tablet) 875 mg PO BID [facility] Last Admin: 02/11/21 09:09 Dose: 875 mg Documented by: Aspirin (Aspirin 81 Mg Tab.Chew) 81 mg PO DAILY@0800 [facility] Last Admin: 02/11/21 09:09 Dose: 81 mg Documented by: Docusate Sodium (Docusate Sodium 100 Mg Capsule) 100 mg PO BID [facility] Last Admin: 02/11/21 09:12 Dose: 100 mg Documented by: Enoxaparin Sodium (Enoxaparin 40 Mg/0.4 Ml Syringe) 40 mg SC BID [facility] Last Admin: 02/11/21 09:16 Dose: 40 mg Documented by: Famotidine (Famotidine 20 Mg Tablet) 20 mg PO BID [facility] Last Admin: 02/11/21 09:09 Dose: 20 mg Documented by: Furosemide (Furosemide 20 Mg Tablet) 20 mg PO BID [facility] Last Admin: 02/11/21 09:09 Dose: 20 mg Documented by: Sodium Chloride () 250 mls @ 15 mls/hr IV .[id number] PRN PRN Reason: Saline Flush Last Infusion: 02/11/21 00:07 Dose: Infused Documented by: Sodium Chloride () 250 mls @ 15 mls/hr IV .[id number] PRN PRN Reason: Additional IVPB Infusion Insulin Human Lispro (Insulin Lispro 100 Unit/Ml Insuln.Pen) 0 unit SC [facility]; Protocol Last Admin: 02/11/21 13:48 Dose: Not Given Documented by: Melatonin (Melatonin 3 Mg Tablet) 3 mg PO QHS PRN PRN PRN Reason: INSOMNIA Nystatin (Nystatin Powder 15gm Bottle) 1 applic TOPICAL BID [facility]; Protocol Last Admin: 02/11/21 09:10 Dose: 1 applic Documented by: Ondansetron HCl (Ondansetron 4 Mg/2 Ml Vial) 4 mg IV Q8H PRN PRN PRN Reason: NAUSEA/VOMITING Last Admin: 02/10/21 14:21 Dose: 4 mg Documented by: Pravastatin Sodium (Pravastatin 20 Mg Tablet) 20 mg PO QHS [facility] Last Admin: 02/10/21 21:40 Dose: 20 mg Documented by: Sodium Chloride (0.9% Saline Lock 10 Ml Syringe) 10 - 40 ml IV UD PRN PRN Reason: SALINE FLUSH Last Admin: 02/10/21 06:34 Dose: 10 ml Documented by: Venlafaxine HCl (Venlafaxine Xr 150 Mg Capsule) 150 mg PO BID [facility] Last Admin: 02/11/21 09:09 Dose: 150 mg Documented by: STROKE Vital Signs/Narrative: Vital Signs Temp Pulse Resp BP Pulse Ox 02/11/21 12:00 97.8 F 80 18 130/67 H 100 Medical Necessity - Tobacco Use Smoking Status: Never smoker Assessment/Plan All Active Problems (Last Reviewed 02/08/21 @ 21:04 by Kacie Booker, SOLE STITCHER HAND-C) UTI (urinary tract infection) (Acute) Encephalopathy (Acute) UTI (urinary tract infection) due to urinary indwelling catheter (Acute) MICHAELLE (acute kidney injury) (Acute) Suprapubic catheter dysfunction (Resolved) 1. Acute metabolic encephalopathy secondary to acute UTI, resolved 2. Acute UTI secondary to chronic indwelling suprapubic catheter, improving History of drug-resistant Pseudomonas aeruginosa and Proteus mirabilis UTI Current urine cultures growing E. coli/Proteus mirabilis. ID following; currently on Augmentin for 5 more days (stop date 02/16/21) 3. Acute on chronic infected sacral ulcer, patient follows up in the wound clinic with Dr. Dumont Wound cultures currently growing corynebacterium and actinomyces ID following, continue on Augmentin 4. Acute on chronic anemia; mixed, iron deficiency and anemia of chronic disease/kidney disease Admitted with hemoglobin of 6.9, status post 1 unit pRBC (02/09/21) Repeat hemoglobin is 7.0; patient believes it is from her urine. Admitting UA had 0-5 RBCs Will transfuse another unit of pRBC FOBT is pending, continue on famotidine to 20mg BID 5. Morbidly obese, BMI 44.1, lifestyle modification recommended 6. Type II DM, blood sugars are controlled, home Metformin on hold, continue to monitor 7. Hypertension, BP controlled, continue to hold lisinopril for now 8. CKD stage III, Cr remains at the baseline, continue to monitor 9. VITA/depression/hyperlipidemia, all remain stable, continue to use BiPAP 10. Debility, related to recurrent UTIs, multiple comorbidities 11. DVT prophylaxis with Lovenox subcu 12. Disposition: DC to SNF when bed is available Inpatient E&M: 23507 Subs Hosp L2
[2021-02-11 16:46] LABS: Bedside Glucose 84 mg/dL (70-110)
[2021-02-11 19:54] LABS: Bacteria 0 SEEN /hpf (None Seen); Mucous, Urine 0 SEEN /hpf (<or=2+); Red Blood Cells-Urine 0 SEEN /hpf (0-5); Squamous Epithelial Cells - UA 0 SEEN /hpf (5-10)
[2021-02-11 20:04] LABS: Color, Urine Red (Yellow); Glucose, Dipstick Normal (Normal); Ketone-Dipstick Negative (Negative); Leukocyte Esterase-Dipstick 500 /ul (Negative); Nitrite-Dipstick Negative (Negative); Occult Blood-Urine 250 /ul (Negative); Protein-Dipstick 100 mg/dl (Negative); Specific Gravity, Urine 1.015 (1.002-1.030); Urine Bilirubin Dipstick Negative (Negative); Urine Clarity Turbid (Clear); Urine Urobilinogen Normal (Normal); Urine pH 6.5 (5.0 - 8.0)
[2021-02-11 20:12] LABS: White Blood Cells >100 SEEN /hpf (0-5)
[2021-02-11] MEDS: Pravastatin 20 MG Tablet PO (22:23)
[2021-02-11 22:30] LABS: Bedside Glucose 111 mg/dL (70-110)
[2021-02-12 02:50] VITALS: BP 158/88; PULSE 88; RESP 17; TEMP 36.6; O2SAT 95
[2021-02-12] MEDS: Ondansetron 4 MG/2 ML Vial IV (02:50)
[2021-02-12] MEDS: 0.9% Saline Lock 10 ML Syringe IV (02:51)
[2021-02-12] MEDS: Acetaminophen 325 MG Tablet 650 MG PO (03:45)
--- NOTE | 2021-02-12 05:39 | NURSING ---
Pt requests morning blood glucose be checked now so she can eat. 89 result.
[2021-02-12 05:46] LABS: Bedside Glucose 89 mg/dL (70-110)
[2021-02-12 06:32] LABS: Absolute Lymphocyte Count 1.02 X10^3/uL (0.83-4.51); Absolute Neutrophil Count 2.5 X10^3/uL (2.0-7.7); Basophil# 0.04 X10^3/uL; Basophil% 0.9 % (0-1); Eosinophil# 0.18 X10^3/uL; Eosinophils% 4.2 % (0-5); Hematocrit 28.4 % (37-47); Hemoglobin 8.4 g/dL (12.0-15.0); Lymphocyte # 1.02 X10^3/ul (4.0); Lymphocyte % 23.8 % (19-41); Mean Corp Hgb Conc 29.6 g/dL (32-36); Mean Corpuscular Volume 87.9 fL (81-99); Mean Platelet Vol. 8.6 fl (6.2-12.0); Monocyte# 0.46 X10^3/uL; Monocyte% 10.7 % (0-10); NRBC Flagged by Analyzer 0 % (0-5); Neutrophil # 2.53 X10^3/uL (2.7-7.7); Platelet Count 356 K/mm3 (150-450); RBC Distribution Width CV 15.9 % (11.6-14.6); RBC Distribution Width SD 51.1 fl (35.1-43.9); Red Blood Count 3.23 M/mm3 (4.2-5.4); White Blood Count 4.3 K/mm3 (4.4-11.0)
[2021-02-12 06:56] LABS: ALB/GLOB Ratio 0.3 RATIO (0.9-2.4); AST(SGOT) 8 U/L (15-37); Alanine Aminotransfer ALT/SGPT 9 U/L (13-56); Albumin, Serum 1.6 g/dL (3.2-5.0); Alkaline Phosphatase 78 U/L (45-117); Anion Gap 5 (5-15); BUN 18 mg/dL (7-18); BUN/Creat Ratio 13.8 RATIO (10-20); Calcium,Total 8.2 mg/dL (8.5-10.1); Chloride 104 mmol/L (98-107); EST Glomerular Filtration Rate 43 mL/min (>60); Est Glom Filt Rate - Afr Amer 51 mL/min (>60); Estimated Creatinine Clearance 36.92 ml/min; Globulin 5.8 g/dL (2.2-4.2); Glucose 85 mg/dL (74-106); Potassium 3.7 mmol/L (3.5-5.1); Protein, Total 7.4 g/dL (6.4-8.2); Sodium Level 135 mmol/L (136-145)
[2021-02-12 07:32] VITALS: BP 153/85; PULSE 82; RESP 18; TEMP 36.9
[2021-02-12 07:36] VITALS: PULSE 82; RESP 18; O2SAT 99
--- NOTE | 2021-02-12 07:52 | PN_ITS ---
Patient Problems: Active and Suspected Problems (Last Reviewed 02/08/21 @ 21:04 by Kacie Booker SUPPLY ANALYST-C) UTI (urinary tract infection) (Acute) UTI (urinary tract infection) due to urinary indwelling catheter (Acute) Chronic gram negative bacteria Vitals/I&O's: Vital Signs Temp Pulse Resp BP Pulse Ox 98.4 F 82 18 153/85 H 95 02/12/21 07:32 02/12/21 07:32 02/12/21 07:32 02/12/21 07:32 02/12/21 02:50 Oxygen Flow Rate (L/min) 3 Oxygen Delivery Method Nasal Cannula Weight: 131.542 kg Body Mass Index (BMI) 43.2 Finger Stick Blood Glucose 150 Intake and Output for Last 24 Hours 02/10/21 02/11/21 02/12/21 23:59 23:59 23:59 Intake Total 2447.75 / 2447.75 2701.5 / 2701.5 920 / 920 Output Total 4100 / 4100 3925 / 3925 2049 / 2049 Balance -1652.25 / -1652.25 -1223.5 / -1223.5 -1130 / -1130 Microbiology Past 72 Hours 02/11/21 12:15 Stool Stool Occult Blood (WENDI) - Final 02/08/21 17:54 Urine Catheter - Catheter Urine Culture - Final Escherichia coli Proteus mirabilis Laboratory Results 02/08/21 22:15: Blood Type A POSITIVE, Antibody Screen NEGATIVE, Crossmatch See Detail 02/11/21 11:36: POC Glucose 105 02/11/21 16:16: POC Glucose 84 02/11/21 19:30: Urine Color Red, Urine Clarity Turbid, Urine pH 6.5, Ur Specific [place] 1.015, Urine Protein 100 H, Urine Glucose (UA) Normal, Urine Ketones Negative, Urine Occult Blood 250 H, Urine Nitrite Negative, Urine Bilirubin Negative, Urine Urobilinogen Normal, Ur Leukocyte Esterase 500 H, Urine RBC 0 SEEN, Urine WBC >100 SEEN, Ur Squamous Epith Cells 0 SEEN, Urine Bacteria 0 SEEN, Urine Mucus 0 SEEN 02/11/21 22:22: POC Glucose 111 H 02/12/21 05:28: POC Glucose 89 02/12/21 06:15: WBC 4.3 L, RBC 3.23 L, Hgb 8.4 L, Hct 28.4 L, MCV 87.9, MCH 26.0 L, MCHC 29.6 L, RDW Std Deviation 51.1 H, RDW Coeff of Jessi 15.9 H, Plt Count 356, MPV 8.6, Immature Gran % (Auto) 1.400 H, Neut % (Auto) 59.0, Lymph % (Auto) 23.8, [place] % (Auto) 10.7 H, Eos % (Auto) 4.2, Baso % (Auto) 0.9, Absolute Neuts (auto) 2.5, Absolute Lymphs (auto) 1.02, Nucleated RBC % 0 02/12/21 06:15: Sodium 135 L, Potassium 3.7, Chloride 104, Carbon Dioxide 26.0, Anion Gap 5, BUN 18, Creatinine 1.30 H, Estim Creat Clear Calc 36.92, Est GFR (MDRD) Af Amer 51 L, Est GFR (MDRD) Non-Af 43 L, BUN/Creatinine Ratio 13.8, Glucose 85, Calcium 8.2 L, Total Bilirubin 0.30, AST 8 L, ALT 9 L, Alkaline Phosphatase 78, Total Protein 7.4, Albumin 1.6 L, Globulin 5.8 H, Albumin/Globulin Ratio 0.3 L Current Medications Acetaminophen (Acetaminophen 325 Mg Tablet) 650 mg PO Q6H PRN PRN PRN Reason: Pain Score 1-10/Temp > 100.7 F Last Admin: 02/12/21 03:45 Dose: 650 mg Documented by: Albuterol Sulfate (Albuterol 2.5 Mg/3 Ml Vial.Neb.) 2.5 mg INHALATION Q4H PRN PRN PRN Reason: SOB &/OR WHEEZING Amoxicillin/Clavulanate Potassium (Amox/Clavulanate 875 Mg Tablet) 875 mg PO BID [facility] Last Admin: 02/11/21 22:24 Dose: 875 mg Documented by: Aspirin (Aspirin 81 Mg Tab.Chew) 81 mg PO DAILY@0800 [facility] Last Admin: 02/11/21 09:09 Dose: 81 mg Documented by: Docusate Sodium (Docusate Sodium 100 Mg Capsule) 100 mg PO BID [facility] Last Admin: 02/11/21 22:23 Dose: 100 mg Documented by: Enoxaparin Sodium (Enoxaparin 40 Mg/0.4 Ml Syringe) 40 mg SC BID [facility] Last Admin: 02/11/21 22:24 Dose: 40 mg Documented by: Famotidine (Famotidine 20 Mg Tablet) 20 mg PO BID [facility] Last Admin: 02/11/21 22:23 Dose: 20 mg Documented by: Furosemide (Furosemide 20 Mg Tablet) 20 mg PO BID [facility] Last Admin: 02/11/21 22:23 Dose: 20 mg Documented by: Sodium Chloride () 250 mls @ 15 mls/hr IV .[id number] PRN PRN Reason: Saline Flush Last Infusion: 02/11/21 00:07 Dose: Infused Documented by: Sodium Chloride () 250 mls @ 15 mls/hr IV .[id number] PRN PRN Reason: Additional IVPB Infusion Insulin Human Lispro (Insulin Lispro 100 Unit/Ml Insuln.Pen) 0 unit SC [facility]; Protocol Last Admin: 02/12/21 05:47 Dose: Not Given Documented by: Melatonin (Melatonin 3 Mg Tablet) 3 mg PO QHS PRN PRN PRN Reason: INSOMNIA Metoprolol Tartrate (Metoprolol Tartrate 25 Mg Tablet) 25 mg PO DAILY [facility] Nystatin (Nystatin Powder 15gm Bottle) 1 applic TOPICAL BID [facility]; Protocol Last Admin: 02/11/21 22:32 Dose: Not Given Documented by: Ondansetron HCl (Ondansetron 4 Mg/2 Ml Vial) 4 mg IV Q8H PRN PRN PRN Reason: NAUSEA/VOMITING Last Admin: 02/12/21 02:50 Dose: 4 mg Documented by: Pravastatin Sodium (Pravastatin 20 Mg Tablet) 20 mg PO QHS [facility] Last Admin: 02/11/21 22:23 Dose: 20 mg Documented by: Sodium Chloride (0.9% Saline Lock 10 Ml Syringe) 10 - 40 ml IV UD PRN PRN Reason: SALINE FLUSH Last Admin: 02/12/21 02:51 Dose: 10 ml Documented by: Venlafaxine HCl (Venlafaxine Xr 150 Mg Capsule) 150 mg PO BID [facility] Last Admin: 02/11/21 22:24 Dose: 150 mg Documented by: STROKE Vital Signs/Narrative: Vital Signs Temp Pulse Resp BP 02/12/21 07:32 98.4 F 82 18 153/85 H Medical Necessity - Tobacco Use Smoking Status: Never smoker Assessment/Plan All Active Problems (Last Reviewed 02/08/21 @ 21:04 by Kacie Booker, SUPPLY ANALYST-C) UTI (urinary tract infection) (Acute) Encephalopathy (Acute) UTI (urinary tract infection) due to urinary indwelling catheter (Acute) MICHAELLE (acute kidney injury) (Acute) Suprapubic catheter dysfunction (Resolved)
[2021-02-12 08:30] VITALS: O2SAT 99
[2021-02-12] MEDS: Aspirin 81 MG TAB.CHEW PO (09:23)
[2021-02-12] MEDS: Venlafaxine XR 150 MG Capsule PO (09:24)
[2021-02-12] MEDS: Furosemide 20 MG Tablet PO (09:24)
[2021-02-12] MEDS: Amox/Clavulanate 875 MG Tablet PO (09:24)
[2021-02-12] MEDS: Docusate Sodium 100 MG Capsule PO (09:24)
[2021-02-12] MEDS: Famotidine 20 MG Tablet PO (09:25)
[2021-02-12 09:29] VITALS: BP 133/73; PULSE 87
[2021-02-12] MEDS: Metoprolol Tartrate 25 MG Tablet PO (09:29)
[2021-02-12] MEDS: Enoxaparin 40 MG/0.4 ML Syringe SC (09:30)
--- NOTE | 2021-02-12 11:19 | PCM.TXEXTCAR ---
- Diet 02/08/21 21:15 Diet: Consistent Carb - Calorie Controlled Food consistency:: Regular Liquid Consistency:: Regular/Thin Type of Dietary Supplement:: Glucerna Shake Diet Comments: 240mL w/ breakfast only- VANILLA How many daily calories?: 1800 calorie - Routine Orders/Code Status O2 Liters per Minute: 3 O2 Frequency: Continuous Keep PO Greater than or Equal to (%): 94 Routine Lab Work: CBC - within 3 days, BMP - within 3 days Code Status: Full Code - Wound(s) left buttocks Wound Type: Pressure Injury coccyx Wound Type: Pressure Injury Dressing Change: Fibracol left big toe Wound Type: Abrasion left 2nd toe Wound Type: Abrasion Left Lower Abd Wound Type: suprapubic cath - Therapies Weight Bearing: Weight bearing as tolerated Physical Therapy: Eval and Treat Occupational Therapy: Eval and Treat - Problem/Diagnosis (1) UTI (urinary tract infection) Status: Acute (2) Encephalopathy Status: Acute (3) Hypertension Status: Chronic (4) Diabetes mellitus type 2 in obese Status: Chronic (5) Acute on chronic anemia Status: Chronic (6) Morbid obesity Status: Chronic (7) Anxiety and depression Status: Chronic (8) HLD (hyperlipidemia) Status: Chronic (9) UTI (urinary tract infection) due to urinary indwelling catheter Status: Acute Comment: Chronic gram negative bacteria (10) Depression Status: Chronic (11) VITA (obstructive sleep apnea) Status: Chronic - Allergies/Procedures Done in Hospital Allergies/Adverse Reactions: Allergies adhesive tape Allergy (Verified 02/08/21 16:29) blisters Influenza Virus Vaccines Allergy (Verified 02/08/21 16:29) shortness of breath/severe wheezing iron Allergy (Verified 02/08/21 16:29) from IV form chest pressure and heart palpitations Sulfa (Sulfonamide Antibiotics) Allergy (Verified 02/08/21 16:29) Shortness of breath bactrim does not work for her-per pcp paperwork meloxicam [From Mobic] Adverse Reaction (Verified 02/08/21 16:29) gi upset seasonal allergies Allergy (Uncoded 02/08/21 16:29) Other Procedures: None - Type of Care/Length of Stay Estimated LOS: Convalescent Care Less Than 30 days Type of Care Needed: Skilled Rehab Potential: Good Prognosis: Fair - Additional Orders/Day of Discharge Day of Discharge: 02/12/21 - Dietary and Speech Recommendations Dietitian Recommendations/Changes: continue consistent CHO, 1800 calorie controlled diet; will add Glucerna w/ breakfast for additional protein. - Follow Up Care Primary Care Physician: Colby Valenzuela DO [Primary Care Provider] - Please follow up with your Primary Care Physician in: within 1-2 weeks Please Follow Up With: Juan Ramon Andrews MD When: within 1-2 weeks
--- NOTE | 2021-02-12 11:24 | DS.PCM_ITS ---
Discharge Date and Diagnosis - Problem List Patient Problems: Active and Suspected Problems (Last Reviewed 02/08/21 @ 21:04 by Kacie Booker NP-Cristina) UTI (urinary tract infection) (Acute) Encephalopathy (Acute) UTI (urinary tract infection) due to urinary indwelling catheter (Acute) Chronic gram negative bacteria Date of Admission: 02/10/21 Date of Discharge: 02/12/21 - Primary Discharge Diagnosis Acute Problems: Active Problems (Last Reviewed 02/08/21 @ 21:04 by Kacie Booker NP-C) 1. Acute metabolic encephalopathy secondary to acute UTI 2. Acute UTI secondary to chronic indwelling suprapubic catheter 3. Acute on chronic infected sacral ulcer 4. Acute on chronic anemia; mixed, iron deficiency and anemia of chronic disease/kidney disease - Secondary Discharge Diagnosis Chronic Problems: Chronic Problems (Last Reviewed 02/08/21 @ 21:04 by Kacie Booker NP-C) Wheelchair dependence (Chronic) Anemia (Chronic) Pressure ulcer of left thigh (Chronic) Alzju-yh-lhfhxyq kidney injury (Chronic) Hypertension (Chronic) Diabetes mellitus type 2 in obese (Chronic) Acute on chronic anemia (Chronic) Chronic kidney disease, stage 3a (Chronic) Chronic pain (Chronic) History of atrial fibrillation (Chronic) Ulcer of abdomen wall with fat layer exposed (Chronic) Ulcer of left groin with fat layer exposed (Chronic) Pressure ulcer of coccygeal region, stage 3 (Chronic) Morbid obesity (Chronic) Anxiety and depression (Chronic) HLD (hyperlipidemia) (Chronic) Debility (Chronic) Depression (Chronic) VITA (obstructive sleep apnea) (Chronic) Candidal intertrigo (Chronic) Hospital Course and Treatment Imaging Results: Clinical Impression(s) from Imaging Studies Chest X-Ray 02/08/21 17:30 IMPRESSION: Stable chest with no acute or active cardiopulmonary disease. Electronically Signed: Dejon Luna MD at 18:35 EDT , Service support , Shoulder X-Ray 02/10/21 10:35 IMPRESSION: Loss of the acromiohumeral distance as on the prior study suggestive of rotator cuff pathology. Acromioclavicular arthrosis. Electronically Signed: Camacho Da Silva MD at 13:55 EDT Tel , Service support , Consultations 02/08/21 21:15 Consult: Onc/Wound/crusher feeder Routine Comment: Operations: None Procedures: None Summary of Care Provided: The patient is a 75 year old F with multiple co-morbidities who comes in with progressive weakness and altered mental status. Patient has a chronic indwelling suprapubic catheter, stage IV chronic sacral ulcer, who follows with urology and is on Hiprex as well as has been getting Betadine bladder washes daily. Patient was found to be more confused which was similar to her previous episodes of UTI. She lives alone and has her caregiver living next door. She was admitted through the ED; her work-up was consistent with acute UTI. Infectious disease was consulted. Patient's urine culture grew E. coli/P. Mirabilis. She also was followed up by the wound RN. Wound cultures on 02/05/21 grew Corynebacterium and actinomyces. During the course of this hospital stay, patient was managed on IV Unasyn and aztreonam. He was also noted on admission and also during the hospital stay to have low hemoglobin. His stool for occult blood was negative. She was transfused 2 units of packed RBCs total in this admission. Her urinalysis was negative for hematuria. She was discharged on Augmentin to the halfway facility. Patient Problems: Active and Suspected Problems (Last Reviewed 02/08/21 @ 21:04 by Kacie Booker, HEATER FURNACE-C) UTI (urinary tract infection) (Acute) Encephalopathy (Acute) UTI (urinary tract infection) due to urinary indwelling catheter (Acute) Chronic gram negative bacteria Subjective: On the day of discharge, patient was seen and examined. No new complains. Denies any fever or chills. Objective: Physical exam: General: Alert oriented x3, not pale, not jaundiced, morbidly obese HEENT: Atraumatic, PERRLA, EOMI, Normocephalic Neck: Supple, No JVD, Negative Carotid Bruits Lungs: Clear to auscultation, Normal air movement, Diminished Cardiovascular: Regular rate, Regular Rhythm, Normal S1, Normal S2, No murmurs Abdomen: Bowel Sounds Present, Soft, Non Tender, Obese, suprapubic catheter in place, no erythema Extremities: Capillary Refill Less than 3 Seconds, Edema, Peripheral Pulses Normal Skin: Ulcer/ Wound - Chronic wound to coccyx Musculoskeletal: No Tenderness to Palpation of Joints or Extremities Neurological: Cranial nerves II-XII grossly intact - Physical Exam Vitals/I&O's: Vital Signs Temp Pulse Resp BP Pulse Ox 98.4 F 87 18 133/73 H 99 02/12/21 07:32 02/12/21 09:29 02/12/21 07:36 02/12/21 09:29 02/12/21 08:30 Oxygen Flow Rate (L/min) 3 Oxygen Delivery Method Nasal Cannula Weight: 131.542 kg Body Mass Index (BMI) 43.2 Finger Stick Blood Glucose 150 Intake and Output for Last 24 Hours 02/10/21 02/11/21 02/12/21 23:59 23:59 23:59 Intake Total 2447.75 / 2447.75 2701.5 / 2701.5 920 / 920 Output Total 4100 / 4100 3925 / 3925 2049 / 2049 Balance -1652.25 / -1652.25 -1223.5 / -1223.5 -1130 / -1130 Microbiology Past 72 Hours 02/12/21 10:28 Interface Orders SARS-CoV-2 Antigen (Rapid) - Final 02/11/21 12:15 Stool Stool Occult Blood (WENDI) - Final 02/08/21 17:54 Urine Catheter - Catheter Urine Culture - Final Escherichia coli Proteus mirabilis Laboratory Results 02/08/21 22:15: Crossmatch See Detail 02/11/21 11:36: POC Glucose 105 02/11/21 16:16: POC Glucose 84 02/11/21 19:30: Urine Color Red, Urine Clarity Turbid, Urine pH 6.5, Ur Specific [place] 1.015, Urine Protein 100 H, Urine Glucose (UA) Normal, Urine Ketones Negative, Urine Occult Blood 250 H, Urine Nitrite Negative, Urine Bilirubin Negative, Urine Urobilinogen Normal, Ur Leukocyte Esterase 500 H, Urine RBC 0 SEEN, Urine WBC >100 SEEN, Ur Squamous Epith Cells 0 SEEN, Urine Bacteria 0 SEEN , Urine Mucus 0 SEEN 02/11/21 22:22: POC Glucose 111 H 02/12/21 05:28: POC Glucose 89 02/12/21 06:15: WBC 4.3 L, RBC 3.23 L, Hgb 8.4 L, Hct 28.4 L, MCV 87.9, MCH 26.0 L, MCHC 29.6 L, RDW Std Deviation 51.1 H, RDW Coeff of Jessi 15.9 H, Plt Count 356, MPV 8.6, Immature Gran % (Auto) 1.400 H, Neut % (Auto) 59.0, Lymph % (Auto) 23.8, [place] % (Auto) 10.7 H, Eos % (Auto) 4.2, Baso % (Auto) 0.9, Absolute Neuts (auto) 2.5, Absolute Lymphs (auto) 1.02, Nucleated RBC % 0 02/12/21 06:15: Sodium 135 L, Potassium 3.7, Chloride 104, Carbon Dioxide 26.0, Anion Gap 5, BUN 18, Creatinine 1.30 H, Estim Creat Clear Calc 36.92, Est GFR (MDRD) Af Amer 51 L, Est GFR (MDRD) Non-Af 43 L, BUN/Creatinine Ratio 13.8, Glucose 85, Calcium 8.2 L, Total Bilirubin 0.30, AST 8 L, ALT 9 L, Alkaline Phosphatase 78, Total Protein 7.4, Albumin 1.6 L, Globulin 5.8 H, Albumin/Globulin Ratio 0.3 L Current Medications Acetaminophen (Acetaminophen 325 Mg Tablet) 650 mg PO Q6H PRN PRN PRN Reason: Pain Score 1-10/Temp > 100.7 F Last Admin: 02/12/21 03:45 Dose: 650 mg Documented by: Albuterol Sulfate (Albuterol 2.5 Mg/3 Ml Vial.Neb.) 2.5 mg INHALATION Q4H PRN PRN PRN Reason: SOB &/OR WHEEZING Amoxicillin/Clavulanate Potassium (Amox/Clavulanate 875 Mg Tablet) 875 mg PO BID [facility] Last Admin: 02/12/21 09:24 Dose: 875 mg Documented by: Aspirin (Aspirin 81 Mg Tab.Chew) 81 mg PO DAILY@0800 [facility] Last Admin: 02/12/21 09:23 Dose: 81 mg Documented by: Docusate Sodium (Docusate Sodium 100 Mg Capsule) 100 mg PO BID [facility] Last Admin: 02/12/21 09:24 Dose: 100 mg Documented by: Enoxaparin Sodium (Enoxaparin 40 Mg/0.4 Ml Syringe) 40 mg SC BID [facility] Last Admin: 02/12/21 09:30 Dose: 40 mg Documented by: Famotidine (Famotidine 20 Mg Tablet) 20 mg PO BID [facility] Last Admin: 02/12/21 09:25 Dose: 20 mg Documented by: Furosemide (Furosemide 20 Mg Tablet) 20 mg PO BID [facility] Last Admin: 02/12/21 09:24 Dose: 20 mg Documented by: Sodium Chloride () 250 mls @ 15 mls/hr IV .[id number] PRN PRN Reason: Saline Flush Last Infusion: 02/11/21 00:07 Dose: Infused Documented by: Sodium Chloride () 250 mls @ 15 mls/hr IV .[id number] PRN PRN Reason: Additional IVPB Infusion Insulin Human Lispro (Insulin Lispro 100 Unit/Ml Insuln.Pen) 0 unit SC ACHS [facility]; Protocol Last Admin: 02/12/21 05:47 Dose: Not Given Documented by: Melatonin (Melatonin 3 Mg Tablet) 3 mg PO QHS PRN PRN PRN Reason: INSOMNIA Metoprolol Tartrate (Metoprolol Tartrate 25 Mg Tablet) 25 mg PO DAILY [facility] Last Admin: 02/12/21 09:29 Dose: 25 mg Documented by: Nystatin (Nystatin Powder 15gm Bottle) 1 applic TOPICAL BID [facility]; Protocol Last Admin: 02/12/21 09:39 Dose: Not Given Documented by: Ondansetron HCl (Ondansetron 4 Mg/2 Ml Vial) 4 mg IV Q8H PRN PRN PRN Reason: NAUSEA/VOMITING Last Admin: 02/12/21 02:50 Dose: 4 mg Documented by: Pravastatin Sodium (Pravastatin 20 Mg Tablet) 20 mg PO QHS [facility] Last Admin: 02/11/21 22:23 Dose: 20 mg Documented by: Sodium Chloride (0.9% Saline Lock 10 Ml Syringe) 10 - 40 ml IV UD PRN PRN Reason: SALINE FLUSH Last Admin: 02/12/21 02:51 Dose: 10 ml Documented by: Venlafaxine HCl (Venlafaxine Xr 150 Mg Capsule) 150 mg PO BID [facility] Last Admin: 02/12/21 09:24 Dose: 150 mg Documented by: Discharge Diet: Low fat/ Low Cholesterol, 1999 Calorie Control Diet, 2000 mg Sodium Diet Discharge Activity: Return to Normal Activity Home Medications: Medications to take at Discharge Albuterol Inhaler [Ventolin Hfa] 2 puff INHALATION Q4H PRN PRN 10/30/18 Pravastatin [Pravachol] 20 mg PO QHS 12/17/18 Duloxetine HCl 60 mg PO DINNER 03/22/19 Venlafaxine XR [Effexor Xr] 150 mg PO BID 07/02/19 Potassium Chloride Oral Tablet [K-Dur] 10 meq PO DAILYCM 08/18/19 Aspirin [Aspirin, Baby] 81 mg PO DAILY #0 [facility] 08/13/20 Methenamine Hippurate [Hiprex] 1 gm PO BID #0 08/13/20 Famotidine 20 mg PO QHS 10/15/20 Lisinopril [Zestril] 10 mg PO DAILY 10/15/20 Acetaminophen [Tylenol Tablet] 650 mg PO Q6H PRN PRN tablet 02/12/21 Amox/Clavulanate Tablet [Augmentin Tablet] 875 mg PO BID 02/12/21 Furosemide [Lasix] 20 mg PO BID 02/12/21 Metoprolol Tartrate 25 mg PO DAILY 02/12/21 Primary Care Physician: Colby Valenzuela DO [Primary Care Provider] - Please follow up with your Primary Care Physician in: within 1-2 weeks Please Follow Up With: Juan Ramon Andrews MD When: within 1-2 weeks Disposition: Retirement facility Minutes spent on discharge:: 40 Patient Condition:: Stable Medical Necessity - Tobacco Use Smoking Status: Never smoker Tobacco Use: Non-smoker Meaningful Use Info Meaningful Use Diagnoses (Choose all that apply): None applicable Inpatient E&M: 68045 Disch Hosp
[2021-02-12 12:00] VITALS: BP 131/81; PULSE 86; RESP 18; TEMP 36.7; O2SAT 99
--- NOTE | 2021-02-12 12:02 | CASEMGMT ---
Social Work Note Pt is medically ready for discharge today. ELIAS placed a call to Karen in TCU, TCU has a bed today. SW informed Karen that pt will discharge to TCU today. SW in to speak with pt. SW updated pt that TCU is able to accept pt today. Pt states understanding. 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
[2021-02-12 12:11] LABS: Bedside Glucose 88 mg/dL (70-110)
--- NOTE | 2021-02-12 14:07 | NURSING ---
report called to Caryn blank
== END 2021-02-12 15:29 | disposition skilled nursing facility (03) | DRG 698 ==
LOC: ED 16:59 → MS3 21:27
PROVIDERS: Nurse Practitioner Family; Admitting Provider Hospitalist; Emergency Provider Emergency Medicine; PCP Family Medicine; Visit Provider Internal Medicine
DX: T83.510A Infection and inflammatory reaction due to cystostomy catheter, initial encounter (principal); L89.153 Pressure ulcer of sacral region, stage 3; G93.41 Metabolic encephalopathy; I48.20 Chronic atrial fibrillation, unspecified; Z68.41 Body mass index [BMI] 40.0-44.9, adult; N17.9 Acute kidney failure, unspecified; N39.0 Urinary tract infection, site not specified; Y84.6 Urinary catheterization as the cause of abnormal reaction of the patient, or of later complication, without mention of misadventure at the time of the procedure; B96.20 Unspecified Escherichia coli [E. coli] as the cause of diseases classified elsewhere; B96.4 Proteus (mirabilis) (morganii) as the cause of diseases classified elsewhere; D50.9 Iron deficiency anemia, unspecified; D63.1 Anemia in chronic kidney disease; I12.9 Hypertensive chronic kidney disease with stage 1 through stage 4 chronic kidney disease, or unspecified chronic kidney disease; E11.22 Type 2 diabetes mellitus with diabetic chronic kidney disease; N18.31 Chronic kidney disease, stage 3a; G89.29 Other chronic pain; E66.01 Morbid (severe) obesity due to excess calories; F41.9 Anxiety disorder, unspecified; F31.9 Bipolar disorder, unspecified; E78.5 Hyperlipidemia, unspecified; G47.33 Obstructive sleep apnea (adult) (pediatric); B37.2 Candidiasis of skin and nail; Z93.59 Other cystostomy status; Z99.3 Dependence on wheelchair; Z79.84 Long term (current) use of oral hypoglycemic drugs; Z79.899 Other long term (current) drug therapy; Z87.442 Personal history of urinary calculi; Z87.440 Personal history of urinary (tract) infections; Z23 Encounter for immunization
CPT/HCPCS: 36415; 71045; 73030; 80053; 81001; 82274; 82728; 82962; 83540; 83550; 83735; 84100; 85025; 86850; 86900; 86901; 86920; 86922; 87077; 87086; 87088; 87186; 87426; 93005; 97110; 97162; 97166; 97802; 99285; J7030; J7040; J7050; P9016; A4216; J0295; J2405

== ENCOUNTER 2021-02-12 15:45 | Inpatient (IN) | payer MEDICARE, OTHER, SELFPAY ==
[2021-02-12 16:09] VITALS: BP 140/80; PULSE 87; RESP 18; TEMP 36.3; O2SAT 97; BMI 41.8
[2021-02-12 16:30] LABS: Bedside Glucose 88 mg/dL (70-110)
[2021-02-12] MEDS: Venlafaxine XR 150 MG Capsule PO (17:05)
[2021-02-12] MEDS: Amox/Clavulanate 875 MG Tablet PO (17:05)
[2021-02-12] MEDS: Acetaminophen 325 MG Tablet 650 MG PO (17:44)
--- NOTE | 2021-02-12 19:29 | PCM.HP.STD ---
Problem List (1) Failure to thrive Status: Acute (2) Complicated urinary tract infection Status: Acute (3) Metabolic encephalopathy Status: Acute (4) Recurrent UTI Status: Chronic (5) Atrial fibrillation Status: Chronic (6) Chronic kidney disease Status: Chronic (7) Kidney stone Status: Chronic (8) Body mass index (BMI) of 40.1 to 44.9 in adult Status: Chronic (9) Diabetes mellitus Status: Chronic (10) Diabetic neuropathy Status: Chronic (11) Overactive bladder Status: Chronic (12) Gastroesophageal reflux disease Status: Chronic (13) Hypokalemia Status: Chronic (14) Hypertension Status: Chronic (15) Acute on chronic anemia Status: Chronic (16) Urinary retention Status: Chronic (17) HLD (hyperlipidemia) Status: Chronic Qualifiers: (18) Debility Status: Chronic (19) MICHAELLE (acute kidney injury) Status: Acute (20) Depression Status: Chronic Qualifiers: (21) VITA (obstructive sleep apnea) Status: Chronic History of Present Illness Date of Admission: 02/12/21 Chief Complaint: Here for rehabilitation, strengthening, prior to discharge home alone. 02/08/2021 The patient is a 75 year old Female with below past medical history presented to [facility] Emergency Department with change in mental status, dehydration. 02/08/2021 EKG ectopic atrial rhythm, low voltage QRS, cannot rule out anterior infarct, age undetermined. 02/08/2021 Chest X-ray stable. Chronic indwelling torrez catheter, wheelchair dependent. Decreased oral intake, not normal self per sister Fabiana. Mild nausea, no vomiting. IV Fluids given, Hemoglobin 6.9. 02/08/2021 Admit to Hospital. Cefepime, Aztreonam IV for complicated urinary tract infection. Consult Infectious Disease for complicated urinary tract infection. Transfuse 1 unit PRBC for acute on chronic anemia. Gentle IV Fluids for acute kidney injury. BiPAP for obstructive sleep apnea. 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 Infectious Disease recommended Unasyn for infected sacral ulcer, infected with Actinomyces, corynebacterium. 02/09/2021 Encephalopathy resolved, COVID19 #2 given. Hemoglobin 8.2 after 1 unit PRBC transfusion. 02/10/2021 Aztreonam for complicated UTI. Unasyn for infected sacral ulcer. Check stool guaiac, Increase Famotidine to 20MG BID for acute on chronic anemia. 02/10/2021 X-ray right shoulder rotator cuff tendinopathy, Acromioclavicular arthritis. 02/10/2021 Infectious Disease recommended continuing Aztreonam, change Unasyn to Augmentin. 02/11/2021 Urine culture growing E. Coli, Proteus, stop Aztreonam, continue Augmentin for 5 more days. Augmentin for infected sacral ulcer. 02/11/2021 Transfuse 1 unit PRBC for acute on chronic anemia. 02/12/2021 Admit to TCU with debility, here for rehabilitation, strengthening, prior to discharge home alone. Resident baseline is [employer] Lift to electric wheelchair. Past Medical History Past Medical History (Chronic Problems): Chronic Problems (Last Reviewed 02/08/21 @ 21:04 by Kacie Booker NP-C) Wheelchair dependence (Chronic) Anemia (Chronic) Pressure ulcer of left thigh (Chronic) Fuuqx-on-jfrkiiq kidney injury (Chronic) Hypertension (Chronic) Diabetes mellitus type 2 in obese (Chronic) Acute on chronic anemia (Chronic) Chronic kidney disease, stage 3a (Chronic) Chronic pain (Chronic) Recurrent UTI (Chronic) Atrial fibrillation (Chronic) Chronic kidney disease (Chronic) Kidney stone (Chronic) Body mass index (BMI) of 40.1 to 44.9 in adult (Chronic) Diabetes mellitus (Chronic) Diabetic neuropathy (Chronic) Overactive bladder (Chronic) Gastroesophageal reflux disease (Chronic) Hypokalemia (Chronic) History of atrial fibrillation (Chronic) Urinary retention (Chronic) Ulcer of abdomen wall with fat layer exposed (Chronic) Ulcer of left groin with fat layer exposed (Chronic) Pressure ulcer of coccygeal region, stage 3 (Chronic) Morbid obesity (Chronic) Anxiety and depression (Chronic) HLD (hyperlipidemia) (Chronic) Debility (Chronic) Depression (Chronic) VITA (obstructive sleep apnea) (Chronic) Candidal intertrigo (Chronic) Medical History: Medical History (Last Reviewed 02/08/21 @ 21:04 by Kacie Booker NP-C) History of atrial fibrillation (Chronic) Z86.79 Ulcer of abdomen wall with fat layer exposed (Chronic) L98.492 Ulcer of left groin with fat layer exposed (Chronic) L98.492 Pressure ulcer of coccygeal region, stage 3 (Chronic) L89.153 Morbid obesity (Chronic) E66.01 Anxiety and depression (Chronic) F41.9, F32.9 HLD (hyperlipidemia) (Chronic) E78.5 UTI (urinary tract infection) due to urinary indwelling catheter (Acute) T83.511A, N39.0 Chronic gram negative bacteria Severe sepsis (Inactive) A41.9, R65.20 V tach (Inactive) I47.2 VITA (obstructive sleep apnea) (Chronic) G47.33 Candidal intertrigo (Chronic) B37.2 Debility R53.81 DM2 (diabetes mellitus, type 2) E11.9 Essential hypertension I10 VITA (obstructive sleep apnea) G47.33 Allergies adhesive tape Allergy (Verified 02/08/21 16:29) blisters Influenza Virus Vaccines Allergy (Verified 02/08/21 16:29) shortness of breath/severe wheezing iron Allergy (Verified 02/08/21 16:29) from IV form chest pressure and heart palpitations Sulfa (Sulfonamide Antibiotics) Allergy (Verified 02/08/21 16:29) Shortness of breath bactrim does not work for her-per pcp paperwork meloxicam [From Mobic] Adverse Reaction (Verified 02/08/21 16:29) gi upset seasonal allergies Allergy (Uncoded 02/08/21 16:29) Other Home Medications: Ambulatory Orders Medication Instructions Recorded Albuterol Inhaler [Ventolin Hfa] 2 puff INHALATION Q4H PRN PRN 10/30/18 Pravastatin [Pravachol] 20 mg PO QHS 12/17/18 Duloxetine HCl 60 mg PO DINNER 03/22/19 Venlafaxine XR [Effexor Xr] 150 mg PO BID 07/02/19 Potassium Chloride Oral Tablet 10 meq PO DAILYCM 08/18/19 [K-Dur] Aspirin [Aspirin, Baby] 81 mg PO DAILY #0 [facility] 08/13/20 Methenamine Hippurate [Hiprex] 1 gm PO BID #0 08/13/20 Famotidine 20 mg PO QHS 10/15/20 Lisinopril [Zestril] 10 mg PO DAILY 10/15/20 Acetaminophen [Tylenol Tablet] 650 mg PO Q6H PRN PRN tablet 02/12/21 Amox/Clavulanate Tablet [Augmentin 875 mg PO BID 02/12/21 Tablet] Furosemide [Lasix] 20 mg PO BID 02/12/21 Metoprolol Tartrate 25 mg PO DAILY 02/12/21 Surgical History: Surgical History (Last Reviewed 02/08/21 @ 21:04 by Kacie Booker SWITCHMAN SUPERVISOR-C) H/O: hysterectomy Z90.710 Same time as open gallbladder History of cholecystectomy Z90.49 Open, same time as hysterectomy History of tonsillectomy Z90.89 Hx of appendectomy Z90.49 Surgical History: appendectomy, cholecystectomy, hysterectomy, tonsillectomy, - - Suprapubic catheter placement. 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 MACHINE TENDER history Lives: Alone Smoking Status: Never smoker Tobacco Use: Non-smoker Alcohol: None Drugs: None - *Family History Maternal History Items: Diabetes, Heart Disease - Her father had a CABG and CHF Paternal History Items: Heart Disease Review of Systems Constitutional: Denies: Chills, Fever, Weight Change HEENT: Denies: Head Aches, Sinus Congestion, Sinus Drainage Cardiovascular: Denies: Chest Pain, Palpitations Respiratory: Denies: Cough, Shortness of breath at rest, Sputum production Gastrointestinal: Denies: Abdominal Pain, Nausea, Vomiting Genitourinary: Denies: Dysuria Musculoskeletal: Denies: Joint Pain, Joint Tenderness Skin: Denies: Rash, Wounds Neurological: Denies: Numbness, Tingling, Focal weakness Psychiatric: Denies: Anxiety, Depression, Homicidal Ideations, Suicidal Ideations Hematologic/ Lymphatic: Denies: Easy Bruising, Easy Bleeding VTE Information - Inpt Only VTE Present on Admission: No VTE Mechan Device Prophylaxis: Knee High MARIE Hose VTE Pharm Prophylaxis ordered?: No Reason prophylaxis not ordered:: Medical Contraindication Patient Problems: Active and Suspected Problems (Last Reviewed 02/08/21 @ 21:04 by Kacie Booker SWITCHMAN SUPERVISOR-C) Failure to thrive (Acute) Complicated urinary tract infection (Acute) Metabolic encephalopathy (Acute) MICHAELLE (acute kidney injury) (Acute) - Physical Exam Vitals/I&O's: Vital Signs Temp Pulse Resp BP Pulse Ox 97.4 F L 87 18 140/80 H 97 02/12/21 16:09 02/12/21 16:09 02/12/21 16:09 02/12/21 16:09 02/12/21 16:09 Oxygen Delivery Method Room Air Weight: 121.109 kg Body Mass Index (BMI) 41.8 Finger Stick Blood Glucose 150 Intake and Output for Last 24 Hours 02/10/21 02/11/21 02/12/21 23:59 23:59 23:59 Intake Total 240 / 240 Balance 240 / 240 General: Alert, Oriented x3, Cooperative HEENT: Atraumatic, PERRLA, EOMI, Normocephalic Neck: Supple, No JVD, Negative Carotid Bruits Lungs: Clear to auscultation, Normal air movement Cardiovascular: Regular rate, No murmurs Abdomen: Bowel Sounds Present, Soft, Non Tender, - - Suprapubic catheter. Extremities: No edema, Capillary Refill Less than 3 Seconds Skin: No rashes, Ulcer/ Wound - Sacrum per wound nurse. Musculoskeletal: No Tenderness to Palpation of Joints or Extremities Neurological: Cranial nerves II-XII grossly intact Psych/Mental Status: Normal Affect, Appropriate Laboratory Results 02/12/21 16:19: POC Glucose 88 Current Medications Acetaminophen (Acetaminophen 325 Mg Tablet) 650 mg PO Q6H PRN PRN PRN Reason: Pain Score 1-10/Temp > 100.7 F Last Admin: 02/12/21 17:44 Dose: 650 mg Documented by: Albuterol Sulfate (Albuterol Sulfate 8 Gm Inhaler (60 Puffs)) 2 puff INHALATION Q4H PRN PRN PRN Reason: SOB &/OR WHEEZING Amoxicillin/Clavulanate Potassium (Amox/Clavulanate 875 Mg Tablet) 875 mg PO BID [facility] Stop: 02/15/21 18:01 Last Admin: 02/12/21 17:05 Dose: 875 mg Documented by: Aspirin (Aspirin 81 Mg Tab.Chew) 81 mg PO DAILYCM [facility] Duloxetine HCl (Duloxetine Hcl 60 Mg Capsule) 60 mg PO DINNER [facility] Last Admin: 02/12/21 17:04 Dose: Not Given Documented by: Famotidine (Famotidine 20 Mg Tablet) 20 mg PO QHS [facility] Furosemide (Furosemide 20 Mg Tablet) 20 mg PO BIDLX [facility] Lisinopril (Lisinopril 10 Mg Tablet) 10 mg PO DAILY [facility] Methenamine Hippurate (Methenamine Hippurate 1 Gm Tablet) 1 gm PO BID [facility] Last Admin: 02/12/21 17:05 Dose: Not Given Documented by: Metoprolol Tartrate (Metoprolol Tartrate 25 Mg Tablet) 25 mg PO DAILY [facility] Potassium Chloride (Potassium Chloride Oral Tablet 10 Meq) 10 meq PO DAILYCM [facility] Pravastatin Sodium (Pravastatin 20 Mg Tablet) 20 mg PO QHS [facility] Tuberculin PPD (Tuberculin,Purif.Prot.Deriv. 50 Tu/Ml Vial) 5 tu ID [id number] ONE Stop: 02/13/21 10:01 Tuberculin PPD (Tuberculin,Purif.Prot.Deriv. 50 Tu/Ml Vial) 5 tu ID X1 ONE Stop: 02/20/21 10:01 Venlafaxine HCl (Venlafaxine Xr 150 Mg Capsule) 150 mg PO BID [facility] Last Admin: 02/12/21 17:05 Dose: 150 mg Documented by: Assessment/Plan All Active Problems (Last Reviewed 02/08/21 @ 21:04 by Kaice Booker, SWITCHMAN SUPERVISOR-C) UTI (urinary tract infection) (Acute) Encephalopathy (Acute) Failure to thrive (Acute) Complicated urinary tract infection (Acute) Metabolic encephalopathy (Acute) UTI (urinary tract infection) due to urinary indwelling catheter (Acute) MICHAELLE (acute kidney injury) (Acute) Suprapubic catheter dysfunction (Resolved) 75 year old female with below past medical history hospitalized for acute delirium secondary to complicated urinary tract infection, infected sacral ulcer, complicated by acute on chronic anemia, admitted to TCU with debility, here for rehabilitation, strengthening, prior to discharge home alone. Debility - PT/OT. Pain - Tylenol 1000MG Q6H PRN pain (1-10). Bowel - Miralax 17GM daily, Senna/colace 1 tablet BID, MOM 30ML daily PRN, Dulcolax 10MG PRN. Adult immunization - Administer Prevnar 13, Pneumovax 23, Fluzone, COVID19 vaccine as appropriate. DVT prophylaxis - Hold, anemia. Shortness of breath - Albuterol MDI 2 puffs Q4H PRN. Complicated UTI - Augmentin 875MG BID thru 02/15/2021. Infected sacral ulcer - Augmentin 875MG BID thru 02/15/2021, consult wound nurse. Atrial Fibrillation - Metoprolol 25MG daily, Aspirin 81MG daily. 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 GERD - Famotidine 20MG QHS. Edema - Lasix 20MG BID. Hypertension - Metoprolol 25MG daily, Lisinopril 10MG daily. Recurrent UTI - Methenamine 1GM BID. Hypokalemia - K-Dur 10MEQ daily. Hyperlipidemia - Pravastatin 20MG QHS. Depression - Venlafaxine 150MG BID, stable chronic nursing home use, GDR not recommended.
[2021-02-12] MEDS: Famotidine 20 MG Tablet PO (20:28)
[2021-02-12] MEDS: Pravastatin 20 MG Tablet PO (20:28)
[2021-02-13 03:50] VITALS: BP 132/65; PULSE 84; RESP 18; TEMP 36.6; O2SAT 99
[2021-02-13] MEDS: Lisinopril 10 MG Tablet PO (03:52)
[2021-02-13] MEDS: Senna/Docusate Sodium 1 Tablet PO ×2 (03:52→18:01)
[2021-02-13] MEDS: Venlafaxine XR 150 MG Capsule PO ×2 (03:52→18:00)
[2021-02-13] MEDS: Furosemide 20 MG Tablet PO ×2 (03:52→13:25)
[2021-02-13] MEDS: Amox/Clavulanate 875 MG Tablet PO ×2 (03:52→18:01)
[2021-02-13 03:53] VITALS: BP 132/65; PULSE 84
[2021-02-13] MEDS: Metoprolol Tartrate 25 MG Tablet PO (03:53)
[2021-02-13 06:36] LABS: Bedside Glucose 88 mg/dL (70-110)
[2021-02-13 07:26] LABS: Absolute Neutrophil Count 3.5 X10^3/uL (2.0-7.7); Basophil# 0.03 X10^3/uL; Basophil% 0.6 % (0-1); Eosinophil# 0.16 X10^3/uL; Hematocrit 28.9 % (37-47); Hemoglobin 8.5 g/dL (12.0-15.0); Lymphocyte % 18.9 % (19-41); Mean Corp Hgb Conc 29.4 g/dL (32-36); Mean Corpuscular Hgb 26.2 pg (27.0-32.0); Mean Corpuscular Volume 88.9 fL (81-99); Mean Platelet Vol. 9.1 fl (6.2-12.0); Monocyte# 0.57 X10^3/uL; Monocyte% 10.8 % (0-10); NRBC Flagged by Analyzer 0 % (0-5); Neutrophil # 3.46 X10^3/uL (2.7-7.7); Neutrophil % 65.6 % (47-70); Platelet Count 405 K/mm3 (150-450); RBC Distribution Width CV 16.2 % (11.6-14.6); RBC Distribution Width SD 51.7 fl (35.1-43.9); Red Blood Count 3.25 M/mm3 (4.2-5.4); White Blood Count 5.3 K/mm3 (4.4-11.0)
[2021-02-13 07:58] LABS: Anion Gap 5 (5-15); BUN 16 mg/dL (7-18); BUN/Creat Ratio 14.5 RATIO (10-20); Calcium,Total 8.3 mg/dL (8.5-10.1); Chloride 100 mmol/L (98-107); EST Glomerular Filtration Rate 52 mL/min (>60); Est Glom Filt Rate - Afr Amer 62 mL/min (>60); Estimated Creatinine Clearance 43.63 ml/min; Glucose 84 mg/dL (74-106); Potassium 3.7 mmol/L (3.5-5.1); Sodium Level 133 mmol/L (136-145)
[2021-02-13] MEDS: Aspirin 81 MG TAB.CHEW PO (08:21)
[2021-02-13] MEDS: Potassium Chloride Oral Tablet 10 MEQ PO (08:21)
--- NOTE | 2021-02-13 10:27 | RAD_ITS ---
STUDY: X-RAY - ABDOMEN/PELVIS REASON FOR EXAM: Female, 75 years old. Nausea since yesterday. TECHNIQUE: AP views of the abdomen / pelvis. COMPARISON: None. FINDINGS: Normal visualized lung bases. There is an unremarkable bowel gas pattern. No dilated loops of bowel. There is no demonstrated free abdominal air. There are soft tissue calcifications and possible renal stones. There is degenerative change of the spine and hips. RAD/Abdomen Single View (Portable) IMPRESSION: No obstruction. Electronically Signed: Ray Desouza MD at 11:46 EDT , Service support ,
[2021-02-13] MEDS: Tuberculin,Purif.prot.deriv. 50 TU/ML Vial 5 ML ID (10:58)
[2021-02-13 10:59] VITALS: O2SAT 94
--- NOTE | 2021-02-13 11:28 | NURSING ---
Pt C/O of nausea after therapy pt given karine eri and crackers and had not relief. Dr. Beverly updated and new order for KUB and Zofran 4 mg prn q8hrs.
[2021-02-13 12:48] VITALS: BP 129/65; PULSE 83; RESP 17; TEMP 36.7; O2SAT 98
--- NOTE | 2021-02-13 14:29 | NURSING ---
Pt refused SSE at this time, states she wants to just continue to take the oral stool softeners at this time and give them time to work. Pt states on Monday they will trial sit to stand and once she can make it to the toilet she will do SSE if she still needs it.
[2021-02-13] MEDS: DULoxetine Hcl 60 MG Capsule PO (18:01)
[2021-02-13] MEDS: Famotidine 20 MG Tablet PO (21:19)
[2021-02-13] MEDS: Pravastatin 20 MG Tablet PO (21:19)
[2021-02-13] MEDS: Ondansetron ODT 4 MG Tablet PO (21:24)
[2021-02-14 05:00] VITALS: BP 129/74; PULSE 78; RESP 18; TEMP 36.6; O2SAT 99
[2021-02-14 05:08] VITALS: PULSE 78
[2021-02-14] MEDS: Amox/Clavulanate 875 MG Tablet PO ×2 (05:08→17:29)
[2021-02-14] MEDS: Venlafaxine XR 150 MG Capsule PO ×2 (05:08→17:29)
[2021-02-14] MEDS: Furosemide 20 MG Tablet PO ×2 (05:08→13:56)
[2021-02-14] MEDS: Lisinopril 10 MG Tablet PO (05:08)
[2021-02-14] MEDS: Senna/Docusate Sodium 1 Tablet PO ×2 (05:08→17:30)
[2021-02-14] MEDS: Metoprolol Tartrate 25 MG Tablet PO (05:08)
[2021-02-14 06:26] LABS: Bedside Glucose 87 mg/dL (70-110)
[2021-02-14] MEDS: Aspirin 81 MG TAB.CHEW PO (07:45)
[2021-02-14] MEDS: Potassium Chloride Oral Tablet 10 MEQ PO (07:45)
[2021-02-14 10:25] VITALS: O2SAT 94
[2021-02-14] MEDS: Magnesium Hydroxide 30 ML UDC PO (11:03)
[2021-02-14] MEDS: Bisacodyl 5 MG Tablet 10 MG PO (13:58)
[2021-02-14 14:45] VITALS: BP 129/65; PULSE 81; RESP 18; TEMP 36.2; O2SAT 99
--- NOTE | 2021-02-14 15:21 | NURSING ---
pt continues to refuse SSE at this time, milk of mag and biscodyl given per request, pt refusing to let this nurse dress coccyx, stated she wanted to wait for jayece.
[2021-02-14] MEDS: DULoxetine Hcl 60 MG Capsule PO (17:29)
[2021-02-14 18:36] LABS: Bedside Glucose 92 mg/dL (70-110)
[2021-02-14] MEDS: Pravastatin 20 MG Tablet PO (20:58)
[2021-02-14] MEDS: Famotidine 20 MG Tablet PO (20:58)
[2021-02-15 05:00] VITALS: BP 136/74; PULSE 92; RESP 16; TEMP 37; O2SAT 98
[2021-02-15] MEDS: Polyethylene Glycol 3350 17 GM PACKET PO (05:41)
[2021-02-15 05:45] VITALS: BP 136/74; PULSE 92
[2021-02-15] MEDS: Metoprolol Tartrate 25 MG Tablet PO (05:45)
[2021-02-15] MEDS: Amox/Clavulanate 875 MG Tablet PO ×2 (05:45→17:20)
[2021-02-15] MEDS: Furosemide 20 MG Tablet PO ×2 (05:45→13:45)
[2021-02-15] MEDS: Senna/Docusate Sodium 1 Tablet PO ×2 (05:45→17:20)
[2021-02-15] MEDS: Venlafaxine XR 150 MG Capsule PO ×2 (05:46→17:19)
[2021-02-15 06:31] LABS: Bedside Glucose 110 mg/dL (70-110)
--- NOTE | 2021-02-15 06:56 | NURSING ---
Patient refused to take Am Lisinoril. Patient stated since she is now on Lopressor she does not take Lisinopril anymore. RN aware. Will notify Dr. Beverly.
[2021-02-15] MEDS: Potassium Chloride Oral Tablet 10 MEQ PO (09:03)
[2021-02-15] MEDS: Aspirin 81 MG TAB.CHEW PO (09:04)
[2021-02-15 09:09] VITALS: O2SAT 99
[2021-02-15] MEDS: Ondansetron ODT 4 MG Tablet PO (09:10)
--- NOTE | 2021-02-15 10:51 | NURSING ---
Culinary Art Teacher Note: Initial assessment complete. Provided resident with visitation instructions and explained that she is in COVID quarantine precautions until 02/23. Resident states that she does not intend to be here that long. Will provide phone number for family to schedule visits if not d/c'd to home prior to 02/23.
--- NOTE | 2021-02-15 12:26 | NURSING ---
wound photo: yimi
--- NOTE | 2021-02-15 14:07 | NURSING ---
Addendum entered by Kimberly Farias 02/15/21 14:23: notified Dr Andrews's office regarding orders for iodine irrigation. pt states that she was irrigating SP cath with iodine. Office will return call with how much iodine and how often. Original Note: PT URINE LOOKS LIKE FRUIT PUNCH AND WITH SEDIMENT. RN AWARE
[2021-02-15 14:16] VITALS: BP 132/67; PULSE 76; RESP 16; TEMP 36.3; O2SAT 97
--- NOTE | 2021-02-15 16:38 | CASEMGMT ---
Social Work Met with patient for initial assessment. Discussed code status. Pt confirms full code. Advanced directives on file. Explained Medicare insurance and encouraged to contact secondary to ensure copay coverage. The goal is for pt to return home alone but with caregiver assist. Palliative referral made to [facility] MAXIMILIANO Schmidt BIOLOGICAL CHEMIST
[2021-02-15] MEDS: DULoxetine Hcl 60 MG Capsule PO (17:20)
[2021-02-15] MEDS: Pravastatin 20 MG Tablet PO (22:00)
[2021-02-15] MEDS: Famotidine 20 MG Tablet PO (22:00)
[2021-02-16] MEDS: Acetaminophen 500 MG Tablet 1000 MG PO ×2 (01:44→13:05)
[2021-02-16 04:43] VITALS: BP 155/71; PULSE 80; RESP 18; TEMP 36.3; O2SAT 98
[2021-02-16] MEDS: DiphenhydrAMINE 25 MG Capsule PO ×3 (04:47→22:31)
[2021-02-16 04:48] VITALS: BP 155/71; PULSE 80
[2021-02-16] MEDS: Furosemide 20 MG Tablet PO ×2 (04:48→13:48)
[2021-02-16] MEDS: Venlafaxine XR 150 MG Capsule PO ×2 (04:48→17:37)
[2021-02-16] MEDS: Metoprolol Tartrate 25 MG Tablet PO (04:48)
[2021-02-16 06:50] LABS: Bedside Glucose 91 mg/dL (70-110)
[2021-02-16 07:24] VITALS: O2SAT 99
[2021-02-16] MEDS: Aspirin 81 MG TAB.CHEW PO (08:36)
[2021-02-16] MEDS: Potassium Chloride Oral Tablet 10 MEQ PO (08:36)
[2021-02-16 12:45] VITALS: PULSE 81; RESP 18; O2SAT 93
--- NOTE | 2021-02-16 13:29 | NURSING ---
THIS NURSE CALLED OFFICE AND TALKED TO HIS NURSE. THE SUPRAPUBIC CATH IS TO BE CHANGED TODAY AND THEN CHANGED ONCE A MONTH. FLUSHED EVERY DAY WITH GENTAMICIN 80 MG WITH 60 CC OF NORMAL SALINE. PER HIS NURSE PHARMACY SHOULD BE ABLE TO MIX. WILL GET A HOLD OF PHARMACY,RN AWARE
--- NOTE | 2021-02-16 13:55 | PCM.PN.RX ---
<Lyle Hussein - Last Filed: 02/16/21 13:55> Progress Note - Pharmacy Subjective: [] TCU Admission Objective: Allergies adhesive tape Allergy (Verified 02/08/21 16:29) blisters Influenza Virus Vaccines Allergy (Verified 02/08/21 16:29) shortness of breath/severe wheezing iron Allergy (Verified 02/08/21 16:29) from IV form chest pressure and heart palpitations Sulfa (Sulfonamide Antibiotics) Allergy (Verified 02/08/21 16:29) Shortness of breath bactrim does not work for her-per pcp paperwork meloxicam [From Mobic] Adverse Reaction (Verified 02/08/21 16:29) gi upset seasonal allergies Allergy (Uncoded 02/08/21 16:29) Other Current Medications Generic Name Dose Route Start Last Admin Trade Name Freq PRN Reason Stop Dose Admin Acetaminophen 1,000 mg 02/12/21 20:07 02/16/21 13:05 Acetaminophen 500 Mg Tablet PO 1,000 mg Q6H PRN PRN Administration Pain Score 1-10 Albuterol Sulfate 2 puff 02/12/21 16:55 Albuterol Sulfate 8 Gm Inhaler (60 Puffs) INHALATION Q4H PRN PRN SOB &/OR WHEEZING Aspirin 81 mg 02/13/21 08:00 02/16/21 08:36 Aspirin 81 Mg Tab.Chew PO 81 mg DAILYCM ZARINA Administration Bisacodyl 10 mg 02/12/21 19:53 02/14/21 13:58 Bisacodyl 5 Mg Tablet PO 10 mg DAILY PRN Administration Constipation Diphenhydramine HCl 25 mg 02/15/21 08:08 02/16/21 04:47 Diphenhydramine 25 Mg Capsule PO 25 mg BID PRN PRN Administration ITCHING Duloxetine HCl 30 mg 02/16/21 17:00 Duloxetine Hcl 30 Mg Capsule PO 02/23/21 17:01 DINNER ZARINA Famotidine 20 mg 02/12/21 22:00 02/15/21 22:00 Famotidine 20 Mg Tablet PO 20 mg QHS ZARINA Administration Furosemide 20 mg 02/13/21 06:00 02/16/21 13:48 Furosemide 20 Mg Tablet PO 20 mg BIDLX ZARINA Administration Magnesium Hydroxide 30 ml 02/12/21 19:53 02/14/21 11:03 Magnesium Hydroxide 30 Ml Udc PO 30 ml DAILY PRN Administration Constipation Methenamine Hippurate 1 gm 02/16/21 18:00 Methenamine Hippurate 1 Gm Tablet PO BID [facility] Metoprolol Tartrate 25 mg 02/13/21 06:00 02/16/21 04:48 Metoprolol Tartrate 25 Mg Tablet PO 25 mg DAILY ZARINA Administration Nystatin 1 applic 02/16/21 18:00 Nystatin Ointment TOPICAL BID [facility] Protocol Ondansetron HCl 4 mg 02/13/21 10:26 02/15/21 09:10 Ondansetron Odt 4 Mg Tablet PO 4 mg Q8H PRN PRN Administration NAUSEA Polyethylene Glycol 17 gm 02/13/21 06:00 02/16/21 04:48 Polyethylene Glycol 3350 17 Gm Packet PO Not Given DAILY ZARINA Potassium Chloride 10 meq 02/13/21 08:00 02/16/21 08:36 Potassium Chloride Oral Tablet 10 Meq PO 10 meq DAILYCM ZARINA Administration Pravastatin Sodium 20 mg 02/12/21 22:00 02/15/21 22:00 Pravastatin 20 Mg Tablet PO 20 mg QHS [facility] Administration Senna/Docusate Sodium 1 tablet 02/13/21 06:00 02/16/21 04:48 Senna/Docusate Sodium 1 Tablet PO Not Given BID [facility] Sodium Chloride 10 - 40 ml 02/15/21 14:00 0.9% Saline Lock 10 Ml Syringe IV UD PRN SALINE FLUSH Tuberculin PPD 5 tu 02/20/21 10:00 Tuberculin,Purif.Prot.Deriv. 50 Tu/Ml Vial ID 02/20/21 10:01 X1 ONE Venlafaxine HCl 150 mg 02/12/21 18:00 02/16/21 04:48 Venlafaxine Xr 150 Mg Capsule PO 150 mg BID ZARINA Administration Problem List (Last Reviewed 02/08/21 @ 21:04 by Kacie Booker NP-C) Hypertension (Chronic) Acute on chronic anemia (Chronic) Failure to thrive (Acute) Complicated urinary tract infection (Acute) Metabolic encephalopathy (Acute) Recurrent UTI (Chronic) Atrial fibrillation (Chronic) Chronic kidney disease (Chronic) Kidney stone (Chronic) Body mass index (BMI) of 40.1 to 44.9 in adult (Chronic) Diabetes mellitus (Chronic) Diabetic neuropathy (Chronic) Overactive bladder (Chronic) Gastroesophageal reflux disease (Chronic) Hypokalemia (Chronic) Urinary retention (Chronic) HLD (hyperlipidemia) (Chronic) Debility (Chronic) MICHAELLE (acute kidney injury) (Acute) Depression (Chronic) VITA (obstructive sleep apnea) (Chronic) Vital Signs Temp Pulse Resp BP Pulse Ox 97.4 F L 80 18 155/71 H 99 02/16/21 04:43 02/16/21 04:48 02/16/21 04:43 02/16/21 04:48 02/16/21 07:24 Oxygen Flow Rate (L/min) 2 Oxygen Delivery Method Nasal Cannula Weight: 121.109 kg Body Mass Index (BMI) 41.8 Finger Stick Blood Glucose 150 Sodium 133 mmol/L (136-145) L 02/13/21 06:40 Potassium 3.7 mmol/L (3.5-5.1) 02/13/21 06:40 Chloride 100 mmol/L (98-107) 02/13/21 06:40 Carbon Dioxide 28.0 mmol/L (21.0-32.0) 02/13/21 06:40 Anion Gap 5 (5-15) 02/13/21 06:40 BUN 16 mg/dL (7-18) 02/13/21 06:40 Creatinine 1.10 mg/dL (0.55-1.02) H 02/13/21 06:40 Est GFR (MDRD) Af Amer 62 mL/min (>60) 02/13/21 06:40 Est GFR (MDRD) Non-Af 52 mL/min (>60) L 02/13/21 06:40 BUN/Creatinine Ratio 14.5 RATIO (10-20) 02/13/21 06:40 Glucose 84 mg/dL (74-106) 02/13/21 06:40 Assessment/Plan: 1) Pain: Acetaminophen 1000mg po q6h prn for pain 1-10. Please continue to monitor prn usage and for signs/symptoms of increased/decreased pain. *2) Hyperlipidemia: Pravastatin 20mg po qhs. Pt's LFTs are within normal limits. --Please consider a yearly Cholesterol level while the pt is on a statin. Thanks 3) Hypokalemia: Potassium 10meq po daily with food. Pt's most recent K+ was within normal limits. Please continue to monitor. 4) GERD: Famotidine 20mg po qhs. Pt's CrCl is >30. Please continue monitor for signs/symptoms of gerd 5) Edema: Furosemide 20mg po bid. Pt's Na is 133, K+ is 3.7, SrCr is 1.1. Please continue to monitor labs. 6) AFib, Hypertension: Aspirin 81mg daily, Metoprolol 25mg po daily. Pt's pulse is within normal limits. Pt's average of the last 10 blood pressures is 149.4/62.7. Please continue to monitor. 7) Recurrent UTI: Methenamine 1gm po bid. Please continue to monitor for signs/symptoms of UTI Psychotropic Medications: Venlafaxine 150mg po bid for depression. GDR not indicated. Duloxetine 60mg po daily for anxiety. Pt stable, GDR not indicated. Unnecessary Medications: none *Bowel Regimen: Bisacodyl 10mg po daily prn for constipation, Magnesium Hydroxide 30ml po daily prn for constipation, Senna/Docusate 1 tablet po bid, Miralax 17mg po daily. --Pt has refused 3 out of 4 Miralax doses. Please continue to monitor. If pt continues to refuse doses, please evaluate for a potential switch to prn use. Thanks Date of Note:: 02/16/21 - Provider Comments Provider responsibility: Provider responsible to enter orders to implement recommendations <Rashad Beverly Chi - Last Filed: 02/16/21 17:33> Progress Note - Pharmacy Subjective: [] Objective: Allergies adhesive tape Allergy (Verified 02/08/21 16:29) blisters Influenza Virus Vaccines Allergy (Verified 02/08/21 16:29) shortness of breath/severe wheezing iron Allergy (Verified 02/08/21 16:29) from IV form chest pressure and heart palpitations Sulfa (Sulfonamide Antibiotics) Allergy (Verified 02/08/21 16:29) Shortness of breath bactrim does not work for her-per pcp paperwork meloxicam [From [facility]] Adverse Reaction (Verified 02/08/21 16:29) gi upset seasonal allergies Allergy (Uncoded 02/08/21 16:29) Other Current Medications Generic Name Dose Route Start Last Admin Trade Name Freq PRN Reason Stop Dose Admin Acetaminophen 1,000 mg 02/12/21 20:07 02/16/21 13:05 Acetaminophen 500 Mg Tablet PO 1,000 mg Q6H PRN PRN Administration Pain Score 1-10 Albuterol Sulfate 2 puff 02/12/21 16:55 Albuterol Sulfate 8 Gm Inhaler (60 Puffs) INHALATION Q4H PRN PRN SOB &/OR WHEEZING Aspirin 81 mg 02/13/21 08:00 02/16/21 08:36 Aspirin 81 Mg Tab.Chew PO 81 mg DAILYCM [facility] Administration Bisacodyl 10 mg 02/12/21 19:53 02/14/21 13:58 Bisacodyl 5 Mg Tablet PO 10 mg DAILY PRN Administration Constipation Gentamicin Sulfate 80 mg/ 0 mg 02/16/21 22:00 Sodium Chloride 60 ml INTRA-CATH DAILY@2200 [facility] Diphenhydramine HCl 25 mg 02/15/21 08:08 02/16/21 15:01 Diphenhydramine 25 Mg Capsule PO 25 mg BID PRN PRN Administration ITCHING Duloxetine HCl 30 mg 02/16/21 17:00 Duloxetine Hcl 30 Mg Capsule PO 02/23/21 17:01 DINNER [facility] Famotidine 20 mg 02/12/21 22:00 02/15/21 22:00 Famotidine 20 Mg Tablet PO 20 mg QHS [facility] Administration Furosemide 20 mg 02/13/21 06:00 02/16/21 13:48 Furosemide 20 Mg Tablet PO 20 mg BIDLX [facility] Administration Magnesium Hydroxide 30 ml 02/12/21 19:53 02/14/21 11:03 Magnesium Hydroxide 30 Ml Udc PO 30 ml DAILY PRN Administration Constipation Methenamine Hippurate 1 gm 02/16/21 18:00 Methenamine Hippurate 1 Gm Tablet PO BID [facility] Metoprolol Tartrate 25 mg 02/13/21 06:00 02/16/21 04:48 Metoprolol Tartrate 25 Mg Tablet PO 25 mg DAILY [facility] Administration Nystatin 1 applic 02/16/21 18:00 Nystatin Powder 15gm Bottle TOPICAL BID [facility] Protocol Ondansetron HCl 4 mg 02/13/21 10:26 02/15/21 09:10 Ondansetron Odt 4 Mg Tablet PO 4 mg Q8H PRN PRN Administration NAUSEA Polyethylene Glycol 17 gm 02/13/21 06:00 02/16/21 04:48 Polyethylene Glycol 3350 17 Gm Packet PO Not Given DAILY [facility] Potassium Chloride 10 meq 02/13/21 08:00 02/16/21 08:36 Potassium Chloride Oral Tablet 10 Meq PO 10 meq DAILYCM ZARINA Administration Pravastatin Sodium 20 mg 02/12/21 22:00 02/15/21 22:00 Pravastatin 20 Mg Tablet PO 20 mg QHS ZARINA Administration Senna/Docusate Sodium 1 tablet 02/13/21 06:00 02/16/21 04:48 Senna/Docusate Sodium 1 Tablet PO Not Given BID ZARINA Sodium Chloride 10 - 40 ml 02/15/21 14:00 0.9% Saline Lock 10 Ml Syringe IV UD PRN SALINE FLUSH Tuberculin PPD 5 tu 02/20/21 10:00 Tuberculin,Purif.Prot.Deriv. 50 Tu/Ml Vial ID 02/20/21 10:01 X1 ONE Venlafaxine HCl 150 mg 02/12/21 18:00 02/16/21 04:48 Venlafaxine Xr 150 Mg Capsule PO 150 mg BID ZARINA Administration Problem List (Last Reviewed 02/08/21 @ 21:04 by Kacie Booker, [employer]-C) Hypertension (Chronic) Acute on chronic anemia (Chronic) Failure to thrive (Acute) Complicated urinary tract infection (Acute) Metabolic encephalopathy (Acute) Recurrent UTI (Chronic) Atrial fibrillation (Chronic) Chronic kidney disease (Chronic) Kidney stone (Chronic) Body mass index (BMI) of 40.1 to 44.9 in adult (Chronic) Diabetes mellitus (Chronic) Diabetic neuropathy (Chronic) Overactive bladder (Chronic) Gastroesophageal reflux disease (Chronic) Hypokalemia (Chronic) Urinary retention (Chronic) HLD (hyperlipidemia) (Chronic) Debility (Chronic) MICHAELLE (acute kidney injury) (Acute) Depression (Chronic) VITA (obstructive sleep apnea) (Chronic) Vital Signs Temp Pulse Resp BP Pulse Ox 97.0 F L 78 16 125/71 H 93 02/16/21 14:00 02/16/21 14:00 02/16/21 14:00 02/16/21 14:00 02/16/21 14:00 Oxygen Flow Rate (L/min) 2 Oxygen Delivery Method Room Air Weight: 122.498 kg Body Mass Index (BMI) 41.8 Finger Stick Blood Glucose 150 Sodium 133 mmol/L (136-145) L 02/13/21 06:40 Potassium 3.7 mmol/L (3.5-5.1) 02/13/21 06:40 Chloride 100 mmol/L (98-107) 02/13/21 06:40 Carbon Dioxide 28.0 mmol/L (21.0-32.0) 02/13/21 06:40 Anion Gap 5 (5-15) 02/13/21 06:40 BUN 16 mg/dL (7-18) 02/13/21 06:40 Creatinine 1.10 mg/dL (0.55-1.02) H 02/13/21 06:40 Est GFR (MDRD) Af Amer 62 mL/min (>60) 02/13/21 06:40 Est GFR (MDRD) Non-Af 52 mL/min (>60) L 02/13/21 06:40 BUN/Creatinine Ratio 14.5 RATIO (10-20) 02/13/21 06:40 Glucose 84 mg/dL (74-106) 02/13/21 06:40 Assessment/Plan: Psychotropic Medications: Unnecessary Medications: Bowel Regimen: - Provider Comments Provider responsibility: Provider responsible to enter orders to implement recommendations Provider Comments to Recommendations by Pharmacy: Agree
[2021-02-16 14:00] VITALS: BP 125/71; PULSE 78; RESP 16; TEMP 36.1; O2SAT 93
--- NOTE | 2021-02-16 14:39 | NURSING ---
Spoke with Dr. Andrews's office. pt is to have gentamicin 80mg and 60 ml of normal saline daily instilled into bladder. The tubbing is to be clamped for 40 mins then allowed to drain.
--- NOTE | 2021-02-16 15:26 | NURSING ---
TONI KENNEDY/WOUND NURSE IN TO CHANGE PT DRESSING.
[2021-02-16] MEDS: DULoxetine Hcl 30 MG Capsule PO (17:38)
[2021-02-16] MEDS: Methenamine Hippurate 1 GM Tablet PO (17:39)
[2021-02-16] MEDS: Nystatin Powder 15gm Bottle 1 APPLIC TOPICAL (22:31)
[2021-02-16] MEDS: Pravastatin 20 MG Tablet PO (22:32)
[2021-02-16] MEDS: Famotidine 20 MG Tablet PO (22:32)
--- NOTE | 2021-02-17 02:37 | NURSING ---
suprapubic cath irrigated tonight, order is 80 mg gentamicin mixed with 60cc NS clamped for 40min then released to drain, pt only able to tolerate 45 cc for 10 min. Total bed change needed afterwards d/t urinating her bed. RN aware.
[2021-02-17] MEDS: Acetaminophen 500 MG Tablet 1000 MG PO ×3 (03:01→23:47)
[2021-02-17 05:00] VITALS: BP 114/64; PULSE 104; RESP 18; TEMP 36.6; O2SAT 99
--- NOTE | 2021-02-17 05:07 | NURSING ---
Per DIRECTOR OF OCCUPATIONAL HEALTH, Natali, reports that pt unable to hold all of Garamycin flush in bladder, only able to tolerate 45ml for 10 minutes, then was incontinent. Pt states that she can't hold that much fluid in for 40minutes. Spoke with Luís in pharmacy, ok to split dose up into 2 doses of 30ml at a time, passed onto TERRI Hurst, will report to next shift.
[2021-02-17 06:30] LABS: Bedside Glucose 97 mg/dL (70-110)
[2021-02-17 06:58] VITALS: BP 114/64; PULSE 104
[2021-02-17] MEDS: Metoprolol Tartrate 25 MG Tablet PO (06:58)
[2021-02-17] MEDS: Venlafaxine XR 150 MG Capsule PO ×2 (06:58→17:25)
[2021-02-17] MEDS: Furosemide 20 MG Tablet PO ×2 (06:58→13:07)
[2021-02-17] MEDS: DiphenhydrAMINE 25 MG Capsule PO ×2 (06:59→17:24)
[2021-02-17] MEDS: Methenamine Hippurate 1 GM Tablet PO ×2 (07:00→17:25)
[2021-02-17] MEDS: Nystatin Powder 15gm Bottle 1 APPLIC TOPICAL ×2 (07:00→17:29)
[2021-02-17 07:59] VITALS: O2SAT 98
[2021-02-17] MEDS: Potassium Chloride Oral Tablet 10 MEQ PO (07:59)
[2021-02-17] MEDS: Aspirin 81 MG TAB.CHEW PO (07:59)
--- NOTE | 2021-02-17 11:37 | CASEMGMT ---
BIMS and PHQ9 interviews completed on this date for MDS assessment. JUAN Sarmiento
--- NOTE | 2021-02-17 12:32 | NURSING ---
Pt requested to go to Dr. Andrews's office for suprapubic catheter change. Dr. Andrews's office was called and stated they will not schedule an office visit while pt is admitted in the hospital. RN and pt updated, pt is ok with having it changed on the floor.
[2021-02-17 14:08] VITALS: BP 140/46; PULSE 81; RESP 18; TEMP 36.2; O2SAT 100
--- NOTE | 2021-02-17 14:49 | CASEMGMT ---
Social Work IDT met with patient and sister via conference call for care plan meeting. Discussed patient's progress in therapy and nursing. Pt has good home set up and caregivers to assist her. Caregiver returns home in a few days and will notify IDT when she is ready to DC. Offered to order skilled HHC for continued therapy and nursing care. Pt used [facility] prior and would like to use at [place]. Pt agreeable to [facility] at [place]. Pt is out of isolation 02/23. Explained Medicare insurance. Will continue to follow. MAXIMILIANO SchmidtW
[2021-02-17] MEDS: Senna/Docusate Sodium 1 Tablet PO (17:24)
[2021-02-17] MEDS: DULoxetine Hcl 30 MG Capsule PO (17:25)
[2021-02-17] MEDS: Pravastatin 20 MG Tablet PO (23:17)
[2021-02-17] MEDS: Famotidine 20 MG Tablet PO (23:17)
[2021-02-17 23:20] VITALS: PULSE 82; RESP 16; O2SAT 94
--- NOTE | 2021-02-18 00:02 | NURSING ---
Addendum entered by Kalie Cantu 02/18/21 00:07: Patient request Tylenol for a headache rates pain level a 6 out of 10 given per patient request. Patient states, I need for you to unclamped the catheter because I cannot handle this anymore and she would not like to mess up her bedding. I explained to patient that she has only had it clamped for 7 minutes she states that it was okay. This nurse explained that the ordered states to clamp tubing and leave in bladder for 40 minutes and how ineffective it would be because of not leaving in per order. She stated her understands and states that she will talk with doctor and see if it could be split into half instead of receiving it all at once. I told her I could add to doctor list and ask she stated, no I will ask doctor when they change my suprapubic catheter. Original Note: 21:40 This nurse cleansed suprapubic catheter with a alcohol pad and clamped the catheter. I irrigated suprapubic catheter with Garamycin 80mg 0.9% normal saline 60ml. Patient tolerated the irrigation well without and complaints during this time.
[2021-02-18 05:00] VITALS: BP 134/78; PULSE 89; RESP 18; TEMP 36.6; O2SAT 94
[2021-02-18 05:30] VITALS: BP 134/78; PULSE 89
[2021-02-18] MEDS: Methenamine Hippurate 1 GM Tablet PO ×2 (05:30→17:57)
[2021-02-18] MEDS: Metoprolol Tartrate 25 MG Tablet PO (05:30)
[2021-02-18] MEDS: Furosemide 20 MG Tablet PO ×2 (05:30→14:16)
[2021-02-18] MEDS: Venlafaxine XR 150 MG Capsule PO ×2 (05:30→17:57)
[2021-02-18] MEDS: Senna/Docusate Sodium 1 Tablet PO (05:30)
[2021-02-18] MEDS: Nystatin Powder 15gm Bottle 1 APPLIC TOPICAL ×2 (05:31→17:57)
--- NOTE | 2021-02-18 05:41 | NURSING ---
Patient continuing to have a strawberry color urine from suprapubic catheter no odor noted during this time. C/o pain in bilateral feet states from being stretched to much during therapy. Couldn't give tylenol at this time due to been given it at 23:47. Will give as soon as I can. Rubbed bilateral feet with lotion and states that seemed to help at this time.
[2021-02-18 06:31] LABS: Bedside Glucose 85 mg/dL (70-110)
[2021-02-18] MEDS: Aspirin 81 MG TAB.CHEW PO (08:30)
[2021-02-18] MEDS: Potassium Chloride Oral Tablet 10 MEQ PO (08:30)
[2021-02-18 09:37] VITALS: O2SAT 98
[2021-02-18 10:00] VITALS: PULSE 82; RESP 18; O2SAT 97
[2021-02-18] MEDS: DiphenhydrAMINE 25 MG Capsule PO ×2 (12:21→21:19)
--- NOTE | 2021-02-18 13:55 | CASEMGMT ---
Social Work Spoke with pt about DC plans. Pt requesting to DC 02/20 as caregiver will be returning home by then. Pt agreeable to [facility] and used [facility] prior and would prefer to use at [place]. Referral made to [facility] PT/OT/SN. Pt states sister will transport pt home. No DME needs. Pt agreeable to Palliative at [place]. Notified Palliative. Plan: DC home 02/20 with [facility] PT/OT/SN, Palliative MAXIMILIANO SchmidtW
--- NOTE | 2021-02-18 14:07 | MDS.RN ---
Completed pain interview for karel 02/19/21
[2021-02-18] MEDS: 0.9% Saline Lock 10 ML Syringe IV (14:08)
[2021-02-18 15:30] VITALS: BP 135/88; PULSE 82; RESP 18; TEMP 36.3; O2SAT 97
[2021-02-18] MEDS: DULoxetine Hcl 30 MG Capsule PO (17:56)
[2021-02-18] MEDS: Acetaminophen 500 MG Tablet 1000 MG PO (19:00)
--- NOTE | 2021-02-18 19:17 | PCM.DC ---
- Discharge Diagnoses Current Active Problems: Current Active and Chronic Problems (Last Reviewed 02/08/21 @ 21:04 by Kacie Booker NP-Cristina) Hypertension (Chronic) Acute on chronic anemia (Chronic) Failure to thrive (Acute) Complicated urinary tract infection (Acute) Metabolic encephalopathy (Acute) Recurrent UTI (Chronic) Atrial fibrillation (Chronic) Chronic kidney disease (Chronic) Kidney stone (Chronic) Body mass index (BMI) of 40.1 to 44.9 in adult (Chronic) Diabetes mellitus (Chronic) Diabetic neuropathy (Chronic) Overactive bladder (Chronic) Gastroesophageal reflux disease (Chronic) Hypokalemia (Chronic) Urinary retention (Chronic) HLD (hyperlipidemia) (Chronic) Debility (Chronic) MICHAELLE (acute kidney injury) (Acute) Depression (Chronic) VITA (obstructive sleep apnea) (Chronic) You will use the following diet at home:: No restrictions, Regular Your food should be the consistency of: Regular Your liquids should be the consistency of: Regular/Thin Discharge Activity: Return to Normal Activity Weight Bearing Status: Weight bearing as tolerated Call your doctor if you observe: Fever of 101 or Higher, Inability to urinate, Inability to have a bowel movement, Shortness of breath, Chest pain, Uncontrolled pain Allergies/Adverse Reactions: Allergies adhesive tape Allergy (Verified 02/08/21 16:29) blisters Influenza Virus Vaccines Allergy (Verified 02/08/21 16:29) shortness of breath/severe wheezing iron Allergy (Verified 02/08/21 16:29) from IV form chest pressure and heart palpitations Sulfa (Sulfonamide Antibiotics) Allergy (Verified 02/08/21 16:29) Shortness of breath bactrim does not work for her-per pcp paperwork meloxicam [From Mobic] Adverse Reaction (Verified 02/08/21 16:29) gi upset seasonal allergies Allergy (Uncoded 02/08/21 16:29) Other Medications to take at Discharge Albuterol Inhaler [Ventolin Hfa] 2 puff INHALATION Q4H PRN PRN 10/30/18 Pravastatin [Pravachol] 20 mg PO QHS 12/17/18 Duloxetine HCl 60 mg PO DINNER 03/22/19 Venlafaxine XR [Effexor Xr] 150 mg PO BID 07/02/19 Potassium Chloride Oral Tablet [K-Dur] 10 meq PO DAILYCM 08/18/19 Aspirin [Aspirin, Baby] 81 mg PO DAILY #0 [facility] 08/13/20 Methenamine Hippurate [Hiprex] 1 gm PO BID #0 08/13/20 Famotidine 20 mg PO QHS 10/15/20 Lisinopril [Zestril] 10 mg PO DAILY 10/15/20 Amox/Clavulanate Tablet [Augmentin Tablet] 875 mg PO BID 02/12/21 Furosemide [Lasix] 20 mg PO BID 02/12/21 Acetaminophen [Tylenol] 1,000 mg PO Q6H PRN PRN tablet 02/18/21 DiphenhydrAMINE [Benadryl] 25 mg PO TID PRN PRN capsule 02/18/21 Duloxetine Hcl [Cymbalta] 30 mg PO DINNER capsule 02/18/21 Metoprolol Tartrate 25 mg PO DAILY #30 tablet 02/18/21 Nutritional Supplement [John - ORANGE FLAVOR] 1 packet PO BIDCM #60 packet 02/18/21 Oxybutynin [Ditropan] 5 mg PO TIDCM #90 tablet 02/18/21 The following prescriptions were given: Oxybutynin [Ditropan] 5 mg PO TIDCM #90 tablet Transmission Status: Pending to [place] [id number] Nutritional Supplement [John - ORANGE FLAVOR] 1 packet PO BIDCM #60 packet Transmission Status: Pending to [facility] [id number] Metoprolol Tartrate 25 mg PO DAILY #30 tablet Transmission Status: Pending to [facility] [id number] Primary Care Physician: Colby Valenzuela DO [Primary Care Provider] - Please follow up with your Primary Care Physician in: 1 week. Test Results: Test results from this visit will be discussed in further detail at your follow-up appointment, if applicable. Proposed Discharge Date: 02/20/21
--- NOTE | 2021-02-18 19:18 | PCM.DC.SUM ---
Discharge Date and Diagnosis - Problem List Patient Problems: Active and Suspected Problems (Last Reviewed 02/08/21 @ 21:04 by Kacie Booker NP-Cristina) Failure to thrive (Acute) Complicated urinary tract infection (Acute) Metabolic encephalopathy (Acute) MICHAELLE (acute kidney injury) (Acute) Date of Admission: 02/12/21 Date of Discharge: 02/20/21 - Primary Discharge Diagnosis Acute Problems: Active Problems (Last Reviewed 02/08/21 @ 21:04 by SHAWNA FriasC) Failure to thrive (Acute) Complicated urinary tract infection (Acute) Metabolic encephalopathy (Acute) MICHAELLE (acute kidney injury) (Acute) - Secondary Discharge Diagnosis Chronic Problems: Chronic Problems (Last Reviewed 02/08/21 @ 21:04 by SHAWNA FriasC) Wheelchair dependence (Chronic) Anemia (Chronic) Pressure ulcer of left thigh (Chronic) [id number] kidney injury (Chronic) Hypertension (Chronic) Diabetes mellitus type 2 in obese (Chronic) Acute on chronic anemia (Chronic) Chronic kidney disease, stage 3a (Chronic) Chronic pain (Chronic) Recurrent UTI (Chronic) Atrial fibrillation (Chronic) Chronic kidney disease (Chronic) Kidney stone (Chronic) Body mass index (BMI) of 40.1 to 44.9 in adult (Chronic) Diabetes mellitus (Chronic) Diabetic neuropathy (Chronic) Overactive bladder (Chronic) Gastroesophageal reflux disease (Chronic) Hypokalemia (Chronic) History of atrial fibrillation (Chronic) Urinary retention (Chronic) Ulcer of abdomen wall with fat layer exposed (Chronic) Ulcer of left groin with fat layer exposed (Chronic) Pressure ulcer of coccygeal region, stage 3 (Chronic) Morbid obesity (Chronic) Anxiety and depression (Chronic) HLD (hyperlipidemia) (Chronic) Debility (Chronic) Depression (Chronic) VITA (obstructive sleep apnea) (Chronic) Candidal intertrigo (Chronic) Hospital Course and Treatment Imaging Results: 02/13/21 11:36 Diet: Carbohydrate Controlled Food consistency:: Regular Liquid Consistency:: Regular/Thin Is pt able to select menu?: Yes Diet Comments: GS 240 w/ B - Vanilla; 2 water & 1 reg gingerale L&D - count soda w/ cho Clinical Impression(s) from Imaging Studies KUB X-Ray 02/13/21 10:27 IMPRESSION: No obstruction. Electronically Signed: Ray Desouza MD at 11:46 EDT , Service support , Labs (Last 48 Hours) 02/17/21 02/18/21 06:13 06:25 POC Glucose 97 85 Consultations 02/15/21 06:33 Consult: Onc/Wound/multiple resaw operator Routine Comment: Reason for Consult:: pressure injury coccyx Operations: None Procedures: None Summary of Care Provided: The patient is a 75 year old Female with below past medical history hospitalized for acute delirium secondary to complicated urinary tract infection, infected sacral ulcer, complicated by acute on chronic anemia, admitted to TCU with debility, here for rehabilitation, strengthening, prior to discharge home alone. Discharge home alone, [facility] PT/OT/SN, Palliative. Patient Problems: Active and Suspected Problems (Last Reviewed 02/08/21 @ 21:04 by Kacie Booker, VACUUM CLEANER REPAIR PERSON-C) Failure to thrive (Acute) Complicated urinary tract infection (Acute) Metabolic encephalopathy (Acute) MICHAELLE (acute kidney injury) (Acute) - Physical Exam Vitals/I&O's: Vital Signs Temp Pulse Resp BP Pulse Ox 97.3 F L 82 18 135/88 H 97 02/18/21 15:30 02/18/21 15:30 02/18/21 15:30 02/18/21 15:30 02/18/21 15:30 Oxygen Flow Rate (L/min) 2 Oxygen Delivery Method Room Air Weight: 122.498 kg Body Mass Index (BMI) 41.8 Finger Stick Blood Glucose 150 Intake and Output for Last 24 Hours 02/16/21 02/17/21 02/18/21 23:59 23:59 23:59 Intake Total 1080 / 1080 960 / 960 840 / 840 Output Total 3650 / 3650 2825 / 2825 2100 / 2100 Balance -2570 / -2570 -1865 / -1865 -1260 / -1260 Laboratory Results 02/18/21 06:25: POC Glucose 85 Current Medications Acetaminophen (Acetaminophen 500 Mg Tablet) 1,000 mg PO Q6H PRN PRN PRN Reason: Pain Score 1-10 Last Admin: 02/18/21 19:00 Dose: 1,000 mg Documented by: Albuterol Sulfate (Albuterol Sulfate 8 Gm Inhaler (60 Puffs)) 2 puff INHALATION Q4H PRN PRN PRN Reason: SOB &/OR WHEEZING Aspirin (Aspirin 81 Mg Tab.Chew) 81 mg PO DAILYCM [facility] Last Admin: 02/18/21 08:30 Dose: 81 mg Documented by: Bisacodyl (Bisacodyl 5 Mg Tablet) 10 mg PO DAILY PRN PRN Reason: Constipation Last Admin: 02/14/21 13:58 Dose: 10 mg Documented by: Gentamicin Sulfate 80 mg/ (Sodium Chloride 60 ml) 0 mg INTRA-CATH DAILY@2200 [facility] Last Admin: 02/17/21 23:30 Dose: 80 mg Documented by: Diphenhydramine HCl (Diphenhydramine 25 Mg Capsule) 25 mg PO TID PRN PRN PRN Reason: ITCHING Last Admin: 02/18/21 12:21 Dose: 25 mg Documented by: Duloxetine HCl (Duloxetine Hcl 30 Mg Capsule) 30 mg PO DINNER [facility] Stop: 02/23/21 17:01 Last Admin: 02/18/21 17:56 Dose: 30 mg Documented by: Famotidine (Famotidine 20 Mg Tablet) 20 mg PO QHS [facility] Last Admin: 02/17/21 23:17 Dose: 20 mg Documented by: Furosemide (Furosemide 20 Mg Tablet) 20 mg PO BIDLX [facility] Last Admin: 02/18/21 14:16 Dose: 20 mg Documented by: Magnesium Hydroxide (Magnesium Hydroxide 30 Ml Udc) 30 ml PO DAILY PRN PRN Reason: Constipation Last Admin: 02/14/21 11:03 Dose: 30 ml Documented by: Methenamine Hippurate (Methenamine Hippurate 1 Gm Tablet) 1 gm PO BID [facility] Last Admin: 02/18/21 17:57 Dose: 1 gm Documented by: Metoprolol Tartrate (Metoprolol Tartrate 25 Mg Tablet) 25 mg PO DAILY [facility] Last Admin: 02/18/21 05:30 Dose: 25 mg Documented by: Nutritional Formula ([facility] ([facility]) [facility]) [facility] Last Admin: 02/18/21 17:56 Dose: 1 packet Documented by: Nystatin (Nystatin Powder 15gm Bottle) 1 applic TOPICAL BID [facility]; Protocol Last Admin: 02/18/21 17:57 Dose: 1 applic Documented by: Ondansetron HCl (Ondansetron Odt 4 Mg Tablet) 4 mg PO Q8H PRN PRN PRN Reason: NAUSEA Last Admin: 02/15/21 09:10 Dose: 4 mg Documented by: Oxybutynin Chloride (Oxybutynin 5 Mg Tablet) 5 mg PO TIDCM [facility] Polyethylene Glycol (Polyethylene Glycol 3350 17 Gm Packet) 17 gm PO DAILY [facility] Last Admin: 02/18/21 05:30 Dose: Not Given Documented by: Potassium Chloride (Potassium Chloride Oral Tablet 10 Meq) [facility] Last Admin: 02/18/21 08:30 Dose: 10 meq Documented by: Pravastatin Sodium (Pravastatin 20 Mg Tablet) 20 mg PO QHS [facility] Last Admin: 02/17/21 23:17 Dose: 20 mg Documented by: Senna/Docusate Sodium (Senna/Docusate Sodium 1 Tablet) 1 tablet PO BID [facility] Last Admin: 02/18/21 17:58 Dose: Not Given Documented by: Sodium Chloride (0.9% Saline Lock 10 Ml Syringe) 10 - 40 ml IV UD PRN PRN Reason: SALINE FLUSH Last Admin: 02/18/21 14:08 Dose: 30 ml Documented by: Tuberculin PPD (Tuberculin,Purif.Prot.Deriv. 50 Tu/Ml Vial) 5 tu ID [id number] ONE Stop: 02/20/21 10:01 Venlafaxine HCl (Venlafaxine Xr 150 Mg Capsule) 150 mg PO BID [facility] Last Admin: 02/18/21 17:57 Dose: 150 mg Documented by: Discharge Diet: No Restrictions Discharge Activity: Return to Normal Activity Weight Bearing Status: Weight bearing as tolerated Call your doctor if you observe: Fever of 101 or Higher, Inability to urinate, Inability to have a bowel movement, Shortness of breath, Chest pain, Uncontrolled pain Home Medications: Medications to take at Discharge Albuterol Inhaler [Ventolin Hfa] 2 puff INHALATION Q4H PRN PRN 10/30/18 Pravastatin [Pravachol] 20 mg PO QHS 12/17/18 Duloxetine HCl 60 mg PO DINNER 03/22/19 Venlafaxine XR [Effexor Xr] 150 mg PO BID 07/02/19 Potassium Chloride Oral Tablet [K-Dur] 10 meq PO DAILY 08/18/19 Aspirin [Aspirin, Baby] 81 mg PO DAILY #0 [facility] heart health 08/13/20 Methenamine Hippurate [Hiprex] 1 gm PO BID #0 08/13/20 Famotidine 20 mg PO QHS 10/15/20 Lisinopril [Zestril] 10 mg PO DAILY 10/15/20 Amox/Clavulanate Tablet [Augmentin Tablet] 875 mg PO BID 02/12/21 Furosemide [Lasix] 20 mg PO BID 02/12/21 Acetaminophen [Tylenol] 1,000 mg PO Q6H PRN PRN tablet 02/18/21 DiphenhydrAMINE [Benadryl] 25 mg PO TID PRN PRN capsule 02/18/21 Duloxetine Hcl [Cymbalta] 30 mg PO DINNER capsule 02/18/21 Metoprolol Tartrate 25 mg PO DAILY #30 tablet 02/18/21 Nutritional Supplement [John - ORANGE FLAVOR] 1 packet PO BIDCM #60 packet 02/18/21 Oxybutynin [Ditropan] 5 mg PO TIDCM #90 tablet 02/18/21 Following Prescriptions Were Given to Patient: Oxybutynin [Ditropan] 5 mg PO TIDCM #90 tablet Transmission Status: Pending to [place] [id number] Nutritional Supplement [John - ORANGE FLAVOR] 1 packet PO BIDCM #60 packet Transmission Status: Pending to [facility] [id number] Metoprolol Tartrate 25 mg PO DAILY #30 tablet Transmission Status: Pending to [facility] [id number] Primary Care Physician: Colby Valenzuela DO [Primary Care Provider] - Please follow up with your Primary Care Physician in: 1 week. Disposition: Home with Home Health Minutes spent on discharge:: 35 Patient Condition:: Stable Medical Necessity - Tobacco Use Smoking Status: Never smoker Tobacco Use: Non-smoker Meaningful Use Info Meaningful Use Diagnoses (Choose all that apply): None applicable
--- NOTE | 2021-02-18 20:15 | NURSING ---
abhay champion/wound nurse changed pt dressing to coccyx.
--- NOTE | 2021-02-18 20:16 | NURSING ---
THIS NURSE INTO CHANGE PT SUPRAPUBIC CATH. GREGG KENNEDY NURSE AND CIRARN ALSO PRESENT. USED PT SUPPLIES THAT SHE HAD HERE. CATH WAS A 24 CHADIAN,BALLOON INFLATED WITH 20CC S.WATER. URINE FLOWING,STRAWBERRY IN COLOR. PT TOLERATED WELL.
[2021-02-18] MEDS: Famotidine 20 MG Tablet PO (20:36)
[2021-02-18] MEDS: Pravastatin 20 MG Tablet PO (20:36)
--- NOTE | 2021-02-18 20:38 | NURSING ---
Addendum entered by Kalie Cantu 02/18/21 23:06: Patient refused the other half of Garamycin 30ml. Original Note: 20:30 This nurse emptied suprapubic catheter bag and got 825 ml of hematuria urine color with sediment before given Garamycin. The patient stated she was okay with this nurse tonight to given half of the Garamycin 30 ml in suprapubic catheter tonight to help for 20 minute. Clamped suprapubic tubing and cleansed port with alcohol pad and allowed to air dry. Instilled 30ml of Garamycin in suprapubic catheter with a 50 ml syringe luer-richy tip. While nurse was in the patient room gathering hs and am medication patient states, I cannot handle this I having a lot of spasms so I unclamped the tubing 30 ml of hematuria urine color output. Patient was only able to hold solution for 4 minutes at this time. Patient has a new order Ditropan to help with bladder spasms. Patient stated not needing anything with nurse was in the room call light within reach.
[2021-02-18 22:10] LABS: Bedside Glucose 128 mg/dL (70-110)
[2021-02-19] MEDS: Acetaminophen 500 MG Tablet 1000 MG PO ×3 (01:02→20:08)
[2021-02-19 05:00] VITALS: BP 120/58; PULSE 80; RESP 16; TEMP 36.6; O2SAT 99
[2021-02-19 05:34] VITALS: BP 120/58; PULSE 80
[2021-02-19] MEDS: Metoprolol Tartrate 25 MG Tablet PO (05:34)
[2021-02-19] MEDS: Methenamine Hippurate 1 GM Tablet PO ×2 (05:34→17:23)
[2021-02-19] MEDS: DiphenhydrAMINE 25 MG Capsule PO ×2 (05:34→20:09)
[2021-02-19] MEDS: Senna/Docusate Sodium 1 Tablet PO ×2 (05:35→17:24)
[2021-02-19] MEDS: Venlafaxine XR 150 MG Capsule PO ×2 (05:35→17:24)
[2021-02-19] MEDS: Furosemide 20 MG Tablet PO ×2 (05:35→13:33)
[2021-02-19] MEDS: Nystatin Powder 15gm Bottle 1 APPLIC TOPICAL ×2 (05:36→17:24)
--- NOTE | 2021-02-19 05:39 | NURSING ---
Patient has been itching right forearm off and on during this shift. Was given benadryl at 22:30 and again this morning at 5:34. Patients states benadryl helps for a little. Got a new order for eucerin to try to help with dryness. Patient has redness to right arm from rubbing and scratching this am skin intact. Washed with water and applied eucerin to area.
[2021-02-19 06:46] LABS: Bedside Glucose 82 mg/dL (70-110)
[2021-02-19] MEDS: Oxybutynin 5 MG Tablet PO ×3 (08:13→17:22)
[2021-02-19] MEDS: Aspirin 81 MG TAB.CHEW PO (08:13)
[2021-02-19] MEDS: Potassium Chloride Oral Tablet 10 MEQ PO (08:13)
[2021-02-19] MEDS: Hydrocortisone 2.5% Crm 1 APPLIC TOPICAL (10:29)
--- NOTE | 2021-02-19 11:27 | CASEMGMT ---
Social Work Discharge instructions faxed to [facility] Palliative medicine. JUAN Sarmiento
[2021-02-19 14:00] VITALS: BP 133/68; PULSE 79; RESP 18; TEMP 37.2; O2SAT 100
[2021-02-19] MEDS: DULoxetine Hcl 30 MG Capsule PO (17:23)
[2021-02-19] MEDS: Famotidine 20 MG Tablet PO (20:08)
[2021-02-19] MEDS: Pravastatin 20 MG Tablet PO (20:09)
--- NOTE | 2021-02-19 20:15 | MDS.RN ---
Patient refused to let this nurse irrigate Superpubic catheter. Patient states, It hasn't worked the last few nights, so I don't want it. Patient aware of why we are irrigating. RN aware.
[2021-02-19 23:14] VITALS: PULSE 76; RESP 16; O2SAT 98
[2021-02-20] MEDS: Hydrocortisone 2.5% Crm 1 APPLIC TOPICAL (01:21)
[2021-02-20] MEDS: Ondansetron ODT 4 MG Tablet PO (02:55)
[2021-02-20] MEDS: DiphenhydrAMINE 25 MG Capsule PO (02:56)
[2021-02-20] MEDS: Acetaminophen 500 MG Tablet 1000 MG PO (02:56)
[2021-02-20 05:00] VITALS: BP 92/55; PULSE 82; RESP 16; TEMP 36.2; O2SAT 100
[2021-02-20 06:23] VITALS: PULSE 82
[2021-02-20] MEDS: Senna/Docusate Sodium 1 Tablet PO (06:23)
[2021-02-20] MEDS: Metoprolol Tartrate 25 MG Tablet PO (06:23)
[2021-02-20] MEDS: Furosemide 20 MG Tablet PO (06:23)
[2021-02-20] MEDS: Methenamine Hippurate 1 GM Tablet PO (06:24)
[2021-02-20] MEDS: Venlafaxine XR 150 MG Capsule PO (06:24)
[2021-02-20] MEDS: Nystatin Powder 15gm Bottle 1 APPLIC TOPICAL (06:24)
[2021-02-20 06:45] LABS: Bedside Glucose 113 mg/dL (70-110)
[2021-02-20 07:53] LABS: Absolute Lymphocyte Count 1.22 X10^3/uL (0.83-4.51); Absolute Neutrophil Count 4.4 X10^3/uL (2.0-7.7); Basophil# 0.07 X10^3/uL; Eosinophil# 0.17 X10^3/uL; Eosinophils% 2.5 % (0-5); Hematocrit 30.3 % (37-47); Hemoglobin 8.9 g/dL (12.0-15.0); Lymphocyte # 1.22 X10^3/ul (4.0); Lymphocyte % 17.7 % (19-41); Mean Corp Hgb Conc 29.4 g/dL (32-36); Mean Corpuscular Hgb 26.4 pg (27.0-32.0); Mean Corpuscular Volume 89.9 fL (81-99); Mean Platelet Vol. 9.3 fl (6.2-12.0); Monocyte# 0.95 X10^3/uL; Monocyte% 13.8 % (0-10); NRBC Flagged by Analyzer 0 % (0-5); Neutrophil # 4.44 X10^3/uL (2.7-7.7); Neutrophil % 64.6 % (47-70); Platelet Count 402 K/mm3 (150-450); RBC Distribution Width CV 17.4 % (11.6-14.6); RBC Distribution Width SD 56.9 fl (35.1-43.9); Red Blood Count 3.37 M/mm3 (4.2-5.4); White Blood Count 6.9 K/mm3 (4.4-11.0)
[2021-02-20 08:06] LABS: Anion Gap 6 (5-15); BUN 32 mg/dL (7-18); BUN/Creat Ratio 29.1 RATIO (10-20); Chloride 96 mmol/L (98-107); EST Glomerular Filtration Rate 52 mL/min (>60); Est Glom Filt Rate - Afr Amer 62 mL/min (>60); Estimated Creatinine Clearance 43.63 ml/min; Glucose 99 mg/dL (74-106); Potassium 3.9 mmol/L (3.5-5.1); Sodium Level 129 mmol/L (136-145)
[2021-02-20] MEDS: Oxybutynin 5 MG Tablet PO (08:39)
--- NOTE | 2021-02-25 12:23 | MDS.RN ---
Information for the mds was obtained from review of the clinical record, interview of resident, staff, and direct observation of resident's care.
== END 2021-02-20 10:01 | disposition home health service (06) | DRG 689 ==
PROVIDERS: Admitting Provider Family Medicine Geriatric Medicine; PCP Family Medicine; Visit Provider Family Medicine Geriatric Medicine
DX: N39.0 Urinary tract infection, site not specified (principal); L89.153 Pressure ulcer of sacral region, stage 3; I48.20 Chronic atrial fibrillation, unspecified; Z16.29 Resistance to other single specified antibiotic; Z68.41 Body mass index [BMI] 40.0-44.9, adult; K21.9 Gastro-esophageal reflux disease without esophagitis; I12.9 Hypertensive chronic kidney disease with stage 1 through stage 4 chronic kidney disease, or unspecified chronic kidney disease; G47.33 Obstructive sleep apnea (adult) (pediatric); E78.5 Hyperlipidemia, unspecified; F41.9 Anxiety disorder, unspecified; E87.6 Hypokalemia; E11.40 Type 2 diabetes mellitus with diabetic neuropathy, unspecified; E11.22 Type 2 diabetes mellitus with diabetic chronic kidney disease; B96.20 Unspecified Escherichia coli [E. coli] as the cause of diseases classified elsewhere; B96.4 Proteus (mirabilis) (morganii) as the cause of diseases classified elsewhere; N18.31 Chronic kidney disease, stage 3a; E66.01 Morbid (severe) obesity due to excess calories; G89.29 Other chronic pain; F31.9 Bipolar disorder, unspecified; Z99.3 Dependence on wheelchair; Z79.899 Other long term (current) drug therapy; R62.7 Adult failure to thrive; B37.2 Candidiasis of skin and nail; B99.8 Other infectious disease
CPT/HCPCS: 36415; 74018; 80048; 82962; 85025; 97110; 97162; 97166; 97530; 97535; 97802; A4216

== ENCOUNTER 2021-02-26 12:14 | Outpatient (RCR) | payer MEDICARE, OTHER, SELFPAY ==
[2021-02-12 16:09] VITALS: BMI 41.8
[2021-02-26 12:38] LABS: Hematocrit 31.2 % (37-47); Hemoglobin 9.3 g/dL (12.0-15.0); Mean Corp Hgb Conc 29.8 g/dL (32-36); Mean Corpuscular Volume 87.2 fL (81-99); Mean Platelet Vol. 9.1 fl (6.2-12.0); Platelet Count 657 K/mm3 (150-450); RBC Distribution Width CV 16.8 % (11.6-14.6); Red Blood Count 3.58 M/mm3 (4.2-5.4); White Blood Count 4.7 K/mm3 (4.4-11.0)
[2021-02-26 12:41] LABS: Color, Urine Brown (Yellow); Urine Clarity Turbid (Clear)
[2021-02-26 12:42] LABS: Glucose, Dipstick Normal (Normal); Ketone-Dipstick 15 mg/dl (Negative); Leukocyte Esterase-Dipstick Negative /ul (Negative); Nitrite-Dipstick Negative (Negative); Occult Blood-Urine 150 /ul (Negative); Protein-Dipstick 500 mg/dl (Negative); Specific Gravity, Urine 1.015 (1.002-1.030); Urine Bilirubin Dipstick Negative (Negative); Urine Urobilinogen Normal (Normal)
== END 2021-03-12 23:59 ==
LOC: HHLAB 12:14
PROVIDERS: PCP Family Medicine; Visit Provider Family Medicine
DX: R31.9 Hematuria, unspecified (principal)
CPT/HCPCS: 81002; 85027; 87086; 87088

== ENCOUNTER 2021-03-12 10:48 | Outpatient (RCR) | payer MEDICARE, OTHER, SELFPAY ==
[2021-02-11 00:29] VITALS: BP 112/51; PULSE 85; RESP 18; TEMP 36.3
[2021-02-12 16:09] VITALS: BMI 41.8
[2021-03-12 11:03] VITALS: BP 105/55; PULSE 88; RESP 18; TEMP 36.8; BMI 41.8
--- NOTE | 2021-03-12 16:28 | PCM.WC.PN ---
History of Present Illness Date of Service: 03/12/21 Chief Complaint: ulcers of left groin and abdomen, pressure ulcer of coccyx History of Wound: Samra is a 74 yo woman who presented to the wound center for ulcers of left groin and abdomen referred by wound nurse at [facility]. She was hospitalized at [facility] for urosepsis multiple times. She was on IV antibiotics of Meropenem and Vancomycin. She is morbidly obese and has problems with candidal intertrigo and has ulcers that open frequently for several years. She was using towels to keep moisture from accumulating under her skin folds but this has been ineffective. She started using InstaDry sheets since discharge from the hospital which has improved the moisture in her folds. She has been using nystatin powder as well. She had been using bacitracin to the ulcer of her abdomen. She has an indwelling suprapubic catheter that is changed monthly. She has heavy drainage from her ulcers. She is wheelchair bound and has an aid that helps her daily for a few hours per day. She denies fever or chills. In May 2019, she reports that she has a chronic ulcer of her coccyx area that was previously surgically debrided that comes and goes and has gotten worse since she was in the intermediate in early 2018. Subjective Subjective: Progress of Wound: Samra is here for follow up of ulcer of coccyx. She is tolerating Fibracol dressings to coccyx. She uses ABD pads and a pillowcase to wick away moisture from her inguinal folds. She maintains improvement in erythema and the groin ulcers are healed. She has had mild improvement to coccyx ulcer. She is tolerating fibracol to her coccyx ulcer and has moderate to heavy drainage from this ulcer. She has had increased pain. Her mid-abdomen ulcer remains healed. She denies fever or chills, nausea, vomiting, or diarrhea. 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 Objective Data Objective Data Vital Signs: Vital Signs Temp Pulse Resp BP 98.2 F 88 18 105/55 L 03/12/21 11:03 03/12/21 11:03 03/12/21 11:03 03/12/21 11:03 Weight: 330 lb Body Mass Index (BMI) 41.8 Finger Stick Blood Glucose 150 Assessment & Plan Assessment/Plan (1) Wheelchair dependence: Status: Chronic Code(s): Z99.3 - Dependence on wheelchair (2) Diabetes mellitus type 2 in obese: Status: Chronic Code(s): E11.69 - Type 2 diabetes mellitus with other specified complication; E66.9 - Obesity, unspecified (3) Pressure ulcer of coccygeal region, stage 3: Status: Chronic Code(s): L89.153 - Pressure ulcer of sacral region, stage 3 (4) Morbid obesity: Status: Chronic Code(s): E66.01 - Morbid (severe) obesity due to excess calories Plan: Assessment: ulcers of left groin - healed. morbid obesity. Candidal intertrigo. Stage 3 pressure ulcer of coccyx. Stage 2 pressure ulcer left posterior thigh - healed Plan: Samra's ulcer was evaluated today. Coccyx has improved minimally. I will have her continue to use Fibracol to the ulcer of her coccyx. She should continue to use ABD pads to her inguinal fold area to absorb moisture and prevent ulcers from developing due to the heavy drainage. Wound culture taken today due to increased pain. She should change ABDs to left groin area 2-3 times/day as needed for soiling through of heavy drainage. Diflucan will be continued once weekly to treat candidal intertrigo. Will have her take this weekly to every other week due to sweating and heat and her body habitus and chronic yeast which are causing her to develop ulcers. Encouraged her to increase protein intake and offload the areas of her ulcers. Advised to call with any fever, chills, increased. drainage. Due to the chronic stage 3 pressure ulcer of her coccyx she would benefit from offloading mattress such as alternating pressure mattress. 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 F/u in 2 weeks. Follow-up sooner should new or concerning symptoms arise. Note: [employer] speech recognition sulfate drier machine operator software was used to create portions of this document. Sound-alike and misspelled words, as well as other sulfate drier machine operator errors may be contained in the documentation. Physical Exam Const alert, oriented x3 and no apparent distress Nutritional Appearance: morbidly obese HEENT normocephalic and head/scalp atraumatic Resp normal respiratory effort Cardio regular rate and regular rhythm Skin Wounds: wounds noted Wound Narrative: coccyx Psych mental status grossly normal, cooperative and affect normal Debridement Note Debridement Note Post-Debridement Measurements and Additional Note: Post-Debridement Measurements/Treatment ÁLVARO - Nurse 2 - General Ulcer CM Notes Start: 03/12/21 11:03 Freq: Status: Active Protocol: Activity Type Activity Date Activity User E-Sign Co-Sign Detail Recorded Client Recorded Date Recorded By Document 03/12/21 11:40 MW [id number] 03/12/21 11:40 MW 03/12/21 11:40 Wound Center Nurse 2 #3 Coccyx -Time 11:40 -Correct Patient Yes -Correct Side, Site, Position Yes -Correct Procedure Yes -Procedure Performed Yes -Type of Procedure Debridement -Clinical Debridement Subcutaneous -Tissue Removed Subcutaneous -Post Debridement (cm) - Length 0.3 -Post Debridement (cm) - Width 0.7 -Post Debridement (cm) - Depth 0.2 -Total Square (Post) (cm) 0.21 -Area of Debridement (cm) - Length 0.3 -Area of Debridement (cm) - Width 0.7 -Total Square (Area) (cm) 0.21 -Tunneling No -Undermining/Tunneling No -Circular Undermining No -Wound/Ulcer Outcome Not Healed -Ulcer Cleansing Rinsed/ Irrigated with Saline -Foul Odor after Cleansing No -Bioengineered Tissue No -Bleeding Controlled with Pressure -Offloading No -Treatment Response Procedure Tolerated Well -Debridement - Subq, 1st 20sq cm Yes Pain Scale: 0-10 Numeric Is Patient Pain Free? Yes ÁLVARO - Nurse 3 - General Ulcer D/C NN Start: 03/12/21 11:03 Freq: Status: Active Protocol: Activity Type Activity Date Activity User E-Sign Co-Sign Detail Recorded Client Recorded Date Recorded By Document 03/12/21 11:41 MW [id number] 03/12/21 11:41 MW 03/12/21 11:41 Wound Care Nurse 3 #3 Coccyx -Ulcer Cleansing Rinsed/ Irrigated with Saline -Foul Odor after Cleansing No -Negative Pressure Wound Therapy N/A -Other Dressing FIBRACOL PLUS -Primary Dressing Covered/Secured with Dry Gauze, Secured with Tape Treatment Response Procedure Tolerated Well Pain Scale: 0-10 Numeric Is Patient Pain Free? Yes Teaching: Wound Center Dressing Your Wound -Person Taught Patient -Teaching Method Discussion, Demonstration -Response to teaching Verbalize understanding WC - Visit Discharge Discharge Condition Stable Ambulatory Status Wheelchair Transportation Private Auto Accompanied by SISTER Medication Reconcilliation completed & No provided to patient/care provider Clinical Summary of Care Provided Yes Wound debrided: coccyx Laterality: Not Applicable Wound Grade/Stage: Stage 3 Type of Debridement: Excisional debridement Anesthesia Used: 4% Lidocaine Solution and 5% Lidocaine Gel Depth: Down to and including healthy tissue and in the subcutaneous layer Percentage of wound debrided: 100 Instrument Used: 3mm curette Tissue Removed: Yellow slough, devitalized tissue Severity: Fat Layer Exposed Amount of bleeding with debridement: Mild Bleeding Controlled with: Compression and gauze Patient tolerated procedure: Patient tolerated procedure well
== END 2021-03-12 23:59 ==
LOC: WC 10:48
PROVIDERS: Family Provider Family Medicine; PCP Family Medicine; Referring Provider Family Medicine; Visit Provider Family Medicine
DX: L89.153 Pressure ulcer of sacral region, stage 3 (principal); E66.01 Morbid (severe) obesity due to excess calories; Z99.3 Dependence on wheelchair; Z68.41 Body mass index [BMI] 40.0-44.9, adult; B37.2 Candidiasis of skin and nail
CPT/HCPCS: 11042

== ENCOUNTER 2021-03-21 18:03 | Inpatient (IN) | payer MEDICARE, OTHER, SELFPAY ==
[2021-03-21 18:04] VITALS: BP 115/64; PULSE 95; RESP 18; TEMP 37.1; O2SAT 87; BMI 42.4
[2021-03-21 18:14] VITALS: O2SAT 98
--- NOTE | 2021-03-21 18:18 | EKG12_ITS ---
Test Reason : WEAKNESS Blood Pressure : / mmHG Vent. Rate : 092 BPM Atrial Rate : 092 BPM P-R Int : 120 ms QRS Dur : 072 ms QT Int : 376 ms P-R-T Axes : 000 045 066 degrees QTc Int : 464 ms Sinus rhythm with Premature atrial complexes Low voltage QRS Cannot rule out Anterior infarct , age undetermined Abnormal ECG Confirmed by CACHORRO THOMPSON, JUAN ([id number]), editor trade journal BROOKS WIGGINS ([id number]) on 03/22/2021 1:05:45 PM Referred By: Confirmed By:JUAN IVORY MD
--- NOTE | 2021-03-21 18:25 | EDS_ITS ---
HPI History of Present Illness Chief Complaint: Weakness Informant: patient Narrative Narrative: 75-year-old female presenting with generalized weakness and fatigue. She states this morning she felt like her suprapubic catheter was leaking around the catheter. It has been draining dark urine. She denies fever. Denies recent antibiotics. EMS was called. She states they advised her that her pulse ox was low, 79% on room air. She states she typically only wears oxygen at night. She has a mild cough. She denies chest pain. Prior similar symptoms: Yes Recent Illness/Hospitalization: Yes PFSH PFS Medical History Anxiety and depression Candidal intertrigo Debility DM2 (diabetes mellitus, type 2) Essential hypertension History of atrial fibrillation HLD (hyperlipidemia) Morbid obesity VITA (obstructive sleep apnea) VITA (obstructive sleep apnea) Pressure ulcer of coccygeal region, stage 3 Severe sepsis Ulcer of abdomen wall with fat layer exposed Ulcer of left groin with fat layer exposed UTI (urinary tract infection) due to urinary indwelling catheter V tach Home Medications albuterol sulfate 2 puff INHALATION Q4H PRN PRN 10/30/18 [History Last Taken Unknown] pravastatin 20 mg PO QHS 12/17/18 [History Last Taken 08/06/20] venlafaxine 150 mg PO BID 07/02/19 [History Last Taken 08/07/20] potassium chloride 10 meq PO DAILYCM 08/18/19 [History Last Taken 08/06/20] aspirin 81 mg PO DAILY #0 [facility] 08/13/20 [Rx Last Taken Unknown] methenamine hippurate 1 gm PO BID #0 08/13/20 [Rx Last Taken 08/07/20] famotidine 20 mg PO QHS 10/15/20 [History Last Taken Unknown] furosemide 20 mg PO BID 02/12/21 [History Last Taken Unknown] acetaminophen 1,000 mg PO Q6H PRN PRN tablet 02/18/21 [Rx Last Taken Unknown] [id number]-[id number]-[id number]-[id number]-[id number] 1 packet PO BIDCM #60 packet 02/18/21 [Rx Last Taken Unknown] diphenhydramine HCl 25 mg PO TID PRN PRN capsule 02/18/21 [Rx Last Taken Unknown] metoprolol tartrate 25 mg PO DAILY #30 tablet 02/18/21 [Rx Last Taken Unknown] oxybutynin chloride 5 mg PO TIDCM #90 tablet 02/18/21 [Rx Last Taken Unknown] Allergy/AdvReac Type Severity Reaction Status Date / Time adhesive tape Allergy blisters Verified 02/08/21 16:29 Influenza Virus Vaccines Allergy shortness Verified 02/08/21 16:29 of breath/severe wheezing iron Allergy from IV Verified 02/08/21 16:29 form chest pressure and heart palpitations Sulfa (Sulfonamide Allergy Shortness Verified 02/08/21 16:29 Antibiotics) of breath meloxicam [From Mobic] AdvReac gi upset Verified 02/08/21 16:29 seasonal allergies Allergy Other Uncoded 02/08/21 16:29 Surgical History H/O: hysterectomy History of cholecystectomy History of tonsillectomy Hx of appendectomy Social History Smoking Status: Never smoker ROS ROS ED Constitutional Constitutional ED: Denies fever(s) Eyes Eyes: Denies change in vision ENT ENT ED: Denies rhinorrhea or sore throat Cardiovascular Cardiovascular: Denies chest pain or palpitations Respiratory/Chest Respiratory/Chest: Reports cough and dyspnea Gastrointestinal Gastrointestinal: Denies abdominal pain, diarrhea, nausea or vomiting Genitourinary Genitourinary ED: Denies dysuria Musculoskeletal Musculoskeletal: Denies myalgias Integumentary Denies rash Neurologic Neurologic: Denies headache(s) Psychiatric Psychiatric: Denies suicidal thoughts EXAM Physical Exam Const Vital Signs: 03/21/21 18:04 03/21/21 18:14 03/21/21 18:58 Temperature 98.8 F Temperature Source Oral Pulse Rate 95 Respiratory Rate 18 Blood Pressure 115/64 Blood Pressure Mean 81 Pulse Ox 87 98 Oxygen Delivery Method Room Air Nasal Cannula Nasal Cannula Oxygen Flow Rate (L/min) 2 2 03/21/21 19:22 03/21/21 20:22 Temperature 98.8 F 98.1 F Temperature Source Oral Oral Pulse Rate 95 98 Respiratory Rate 18 18 Blood Pressure 115/64 163/95 H Blood Pressure Mean 81 117 Pulse Ox 98 98 Oxygen Delivery Method Nasal Cannula Nasal Cannula Oxygen Flow Rate (L/min) 2 2 Positive well nourished and well developed General Appearance ED: well developed HEENT Reports normocephalic and head/scalp atraumatic Eyes PERRL and EOMs intact bilaterally Neck supple General: Negative for tenderness Chest Wall inspection of chest normal Resp normal respiratory effort and clear to auscultation bilaterally Cardio regular rate and regular rhythm GI non-tender and non-distended GI Narrative: Obese, suprapubic catheter in place and draining. Palpation: soft; Negative for guarding or rebound tenderness present no CVA tenderness Back/Spine Back/Spine Narrative: Decubitus ulcer coccyx with no surrounding erythema. No drainage. Extremity normal to inspection Neuro oriented x3 Sensorium / Orientation: alert Psych mental status grossly normal MDM MDM MDM Narrative Medical decision making narrative: Blood and urine cultures were sent. Her lactic acid is normal. She was given Rocephin IV due to infected urine. Covid was negative. She was hypoxic prior to arrival. Will discuss with hospitalist for admission. Lab Data Attestation: I reviewed the patient's lab results. Labs: Laboratory Results - last 24 hr 03/21/21 03/21/21 03/21/21 19:34 19:34 19:34 WBC 4.2 L RBC 2.99 L Hgb 7.4 L Hct 25.3 L MCV 84.6 MCH 24.7 L MCHC 29.2 L RDW Std Deviation 55.2 H RDW Coeff of Jessi 18.0 H Plt Count 525 H MPV 8.5 Immature Gran % (Auto) 1.400 H Neut % (Auto) 61.2 Lymph % (Auto) 20.0 [place] % (Auto) 13.5 H Eos % (Auto) 2.9 Baso % (Auto) 1.0 Absolute Neuts (auto) 2.5 Absolute Lymphs (auto) 0.83 Nucleated RBC % 0 Sodium 133 L Potassium 3.7 Chloride 100 Carbon Dioxide 26.0 Anion Gap 7 BUN 22 H Creatinine 1.52 H Estim Creat Clear Calc 30.40 Est GFR (MDRD) Af Amer 43 L Est GFR (MDRD) Non-Af 36 L BUN/Creatinine Ratio 14.5 Glucose 86 Lactic Acid 1.6 Calcium 8.2 L Total Bilirubin 0.20 AST 7 L ALT 9 L Alkaline Phosphatase 97 Troponin I < 0.015 Total Protein 7.8 Albumin 1.7 L Globulin 6.1 H Albumin/Globulin Ratio 0.3 L Urine Color Urine Clarity Urine pH Ur Specific [place] Urine Protein Urine Glucose (UA) Urine Ketones Urine Occult Blood Urine Nitrite Urine Bilirubin Urine Urobilinogen Ur Leukocyte Esterase Urine RBC Urine WBC Ur Squamous Epith Cells Urine Bacteria Urine Mucus 03/21/21 20:59 WBC RBC Hgb Hct MCV MCH MCHC RDW Std Deviation RDW Coeff of Jessi Plt Count MPV Immature Gran % (Auto) Neut % (Auto) Lymph % (Auto) [place] % (Auto) Eos % (Auto) Baso % (Auto) Absolute Neuts (auto) Absolute Lymphs (auto) Nucleated RBC % Sodium Potassium Chloride Carbon Dioxide Anion Gap BUN Creatinine Estim Creat Clear Calc Est GFR (MDRD) Af Amer Est GFR (MDRD) Non-Af BUN/Creatinine Ratio Glucose Lactic Acid Calcium Total Bilirubin AST ALT Alkaline Phosphatase Troponin I Total Protein Albumin Globulin Albumin/Globulin Ratio Urine Color Brown Urine Clarity Turbid Urine pH 7.0 Ur Specific [place] 1.010 Urine Protein 100 H Urine Glucose (UA) Normal Urine Ketones 5 H Urine Occult Blood 250 H Urine Nitrite Positive H Urine Bilirubin Negative Urine Urobilinogen Normal Ur Leukocyte Esterase 500 H Urine RBC 0 SEEN Urine WBC >100 SEEN Ur Squamous Epith Cells 0 SEEN Urine Bacteria 2+ Urine Mucus 0 SEEN Radiography Chest X-Ray - ED: 1 View, Read by ED Physician and Read by Radiologist Diagnostic Testing: Radiology Impression Chest X-Ray 03/21/21 18:31 IMPRESSION: No acute radiographic abnormalities. Electronically Signed: Fuad De Luna MD at 19:19 EDT Tel , Service support , EKG Initial EKG: Attestation: I personally reviewed and interpreted this EKG as follows: Interpretation: Sinus Rhythm and No Acute Injury Pattern Prior EKG tracings: available for review Prior: Unchanged Discharge Plan Triage Chief Complaint: Weakness ED Provider: Dianne Lopez Dx/Rx/DC Orders Clinical Impression: Acute UTI, Hypoxia Prescriptions: No Action albuterol sulfate 1 INHALER inhaler 2 puff inhalation Q4H PRN PRN (Reason: Sob &/Or Wheezing) RF: 0 pravastatin 20 MG tablet 20 mg PO QHS RF: 0 venlafaxine 150 MG capsule 150 mg PO BID RF: 0 potassium chloride 10 MEQ tablet 10 meq PO DAILYCM RF: 0 methenamine hippurate 1 GM tablet 1 gm PO BID Qty: 0 RF: 0 aspirin 81 MG tablet,chewable 81 mg PO DAILY MDD heart health Qty: 0 RF: 0 famotidine 20 MG tablet 20 mg PO QHS RF: 0 furosemide 20 MG tablet 20 mg PO BID RF: 0 acetaminophen 500 MG tablet 1,000 mg PO Q6H PRN PRN (Reason: Pain Score 1-10) RF: 0 diphenhydramine HCl 25 MG capsule 25 mg PO TID PRN PRN (Reason: Itching) RF: 0 oxybutynin chloride 5 MG tablet 5 mg PO TIDCM Qty: 90 RF: 0 [id number]-gdko-KeMZE-[id number]-md-[id number] 1 PACKET packet 1 packet PO BIDCM Qty: 60 RF: 0 metoprolol tartrate 25 MG tablet 25 mg PO DAILY Qty: 30 RF: 0 Primary Care Provider: Colby Valenzuela Referrals: Colby Valenzuela DO [Primary Care Provider] - Disposition Disposition: Acute Care Hospital [facility]
--- NOTE | 2021-03-21 18:31 | RAD_ITS ---
INDICATION: sob EXAMINATION/TECHNIQUE: X-RAY - XR Chest 1 View COMPARISON: 11/27/2020. FINDINGS: Chronic lung changes. The lungs are otherwise clear. Tortuous and calcified thoracic aorta. No pleural effusion or pneumothorax. Degenerative changes of thoracic spine and shoulders. RAD/Chest 1 View (Portable) IMPRESSION: No acute radiographic abnormalities. Electronically Signed: Fuad De Luna MD at 19:19 EDT Tel , Service support ,
[2021-03-21 19:22] VITALS: BP 115/64; PULSE 95; RESP 18; TEMP 37.1; O2SAT 98
[2021-03-21 19:45] LABS: Absolute Lymphocyte Count 0.83 X10^3/uL (0.83-4.51); Absolute Neutrophil Count 2.5 X10^3/uL (2.0-7.7); Basophil# 0.04 X10^3/uL; Eosinophil# 0.12 X10^3/uL; Eosinophils% 2.9 % (0-5); Hematocrit 25.3 % (37-47); Hemoglobin 7.4 g/dL (12.0-15.0); Lymphocyte # 0.83 X10^3/ul (0.83-4.51); Mean Corp Hgb Conc 29.2 g/dL (32-36); Mean Corpuscular Hgb 24.7 pg (27.0-32.0); Mean Corpuscular Volume 84.6 fL (81-99); Mean Platelet Vol. 8.5 fl (6.2-12.0); Monocyte# 0.56 X10^3/uL; Monocyte% 13.5 % (0-10); NRBC Flagged by Analyzer 0 % (0-5); Neutrophil # 2.54 X10^3/uL (2.7-7.7); Neutrophil % 61.2 % (47-70); Platelet Count 525 K/mm3 (150-450); RBC Distribution Width SD 55.2 fl (35.1-43.9); Red Blood Count 2.99 M/mm3 (4.2-5.4); White Blood Count 4.2 K/mm3 (4.4-11.0)
[2021-03-21 20:05] LABS: ALB/GLOB Ratio 0.3 RATIO (0.9-2.4); AST(SGOT) 7 U/L (15-37); Alanine Aminotransfer ALT/SGPT 9 U/L (13-56); Albumin, Serum 1.7 g/dL (3.2-5.0); Alkaline Phosphatase 97 U/L (45-117); Anion Gap 7 (5-15); BUN 22 mg/dL (7-18); BUN/Creat Ratio 14.5 RATIO (10-20); Calcium,Total 8.2 mg/dL (8.5-10.1); Chloride 100 mmol/L (98-107); Creatinine, Serum 1.52 mg/dL (0.55-1.02); EST Glomerular Filtration Rate 36 mL/min (>60); Est Glom Filt Rate - Afr Amer 43 mL/min (>60); Globulin 6.1 g/dL (2.2-4.2); Glucose 86 mg/dL (74-106); Lactic Acid 1.6 mmol/L (0.4-1.9); Potassium 3.7 mmol/L (3.5-5.1); Protein, Total 7.8 g/dL (6.4-8.2); Sodium Level 133 mmol/L (136-145)
[2021-03-21 20:22] VITALS: BP 163/95; PULSE 98; RESP 18; TEMP 36.7; O2SAT 98
[2021-03-21 21:02] LABS: Mucous, Urine 0 SEEN /hpf (<or=2+); Red Blood Cells-Urine 0 SEEN /hpf (0-5); Squamous Epithelial Cells - UA 0 SEEN /hpf (5-10)
[2021-03-21 21:07] LABS: Color, Urine Brown (Yellow); Glucose, Dipstick Normal (Normal); Ketone-Dipstick 5 mg/dl (Negative); Leukocyte Esterase-Dipstick 500 /ul (Negative); Nitrite-Dipstick Positive (Negative); Occult Blood-Urine 250 /ul (Negative); Protein-Dipstick 100 mg/dl (Negative); Urine Bilirubin Dipstick Negative (Negative); Urine Clarity Turbid (Clear); Urine Urobilinogen Normal (Normal)
[2021-03-21 21:15] LABS: Bacteria 2+ /hpf (None Seen); White Blood Cells >100 SEEN /hpf (0-5)
[2021-03-21] MEDS: Ceftriaxone 1 GM/50 ML BAG IV (21:55)
[2021-03-21 22:09] VITALS: BP 135/85; PULSE 93; RESP 18; TEMP 37.1; O2SAT 95
--- NOTE | 2021-03-21 22:11 | HP.PCM_ITS ---
Documented by User: Kacie Booker NP-C 03/21/21 22:41 HPI - General HPI Narrative ISELA CAMARENA, is a 75 F who presents with complaints that her suprapubic catheter is not draining. Patient reports that today she has felt like her catheter is not draining properly and that she was concerned so she called EMS. Patient's catheter currently draining dark brown urine with large amount of sediment. UA shows protein 100, blood 250, nitrite positive, leukocyte esterase 500. EMS reported they arrived to patient's home pulse ox was 78% on room air. Patient reports that she wears 3 L nasal cannula at night only. Patient denies cough, shortness of breath, fever, chills, nausea, vomiting. [facility] Medical History Anxiety and depression Candidal intertrigo Debility DM2 (diabetes mellitus, type 2) Essential hypertension History of atrial fibrillation HLD (hyperlipidemia) Morbid obesity VITA (obstructive sleep apnea) VITA (obstructive sleep apnea) Pressure ulcer of coccygeal region, stage 3 Severe sepsis Ulcer of abdomen wall with fat layer exposed Ulcer of left groin with fat layer exposed UTI (urinary tract infection) due to urinary indwelling catheter V tach Home Medications albuterol sulfate 2 puff INHALATION Q4H PRN PRN 10/30/18 [History Last Taken Unknown] pravastatin 20 mg PO QHS 12/17/18 [History Last Taken 08/06/20] venlafaxine 150 mg PO BID 07/02/19 [History Last Taken 08/07/20] potassium chloride 10 meq PO DAILYCM 08/18/19 [History Last Taken 08/06/20] aspirin 81 mg PO DAILY #0 [facility] 08/13/20 [Rx Last Taken Unknown] methenamine hippurate 1 gm PO BID #0 08/13/20 [Rx Last Taken 08/07/20] famotidine 20 mg PO QHS 10/15/20 [History Last Taken Unknown] furosemide 20 mg PO BID 02/12/21 [History Last Taken Unknown] acetaminophen 1,000 mg PO Q6H PRN PRN tablet 02/18/21 [Rx Last Taken Unknown] [id number]-[id number]-QiSVQ-napowy-gv-[id number] 1 packet PO BIDCM #60 packet 02/18/21 [Rx Last Taken Unknown] diphenhydramine HCl 25 mg PO TID PRN PRN capsule 02/18/21 [Rx Last Taken Unknown] metoprolol tartrate 25 mg PO DAILY #30 tablet 02/18/21 [Rx Last Taken Unknown] oxybutynin chloride 5 mg PO TIDCM #90 tablet 02/18/21 [Rx Last Taken Unknown] Allergy/AdvReac Type Severity Reaction Status Date / Time adhesive tape Allergy blisters Verified 02/08/21 16:29 Influenza Virus Vaccines Allergy shortness Verified 02/08/21 16:29 of breath/severe wheezing iron Allergy from IV Verified 02/08/21 16:29 form chest pressure and heart palpitations Sulfa (Sulfonamide Allergy Shortness Verified 02/08/21 16:29 Antibiotics) of breath meloxicam [From [facility]] AdvReac gi upset Verified 02/08/21 16:29 seasonal allergies Allergy Other Uncoded 02/08/21 16:29 Surgical History H/O: hysterectomy History of cholecystectomy History of tonsillectomy Hx of appendectomy Social History Smoking Status: Never smoker ROS Constitutional Constitutional: Denies anorexia, chills or fatigue Cardiovascular Cardiovascular: Denies chest pain, edema or palpitations Respiratory/Chest Respiratory/Chest: Denies cough, hemoptysis or shortness of breath at rest Gastrointestinal Gastrointestinal: Denies abdominal pain or constipation Genitourinary Genitourinary: Reports dysuria and other Details: Low urine output from suprapubic catheter Musculoskeletal Musculoskeletal: Denies back pain, extremity pain or joint pain Integumentary Integumentary: Denies dry skin, pruritus, rash or wounds Neurologic Neurologic: Denies abnormal gait, abnormal speech or confusion Psychiatric Psychiatric: Denies anxiety or depression Endocrine Endocrinology: Denies change in body appearance or cold intolerance Hematologic/Lymphatic Hematologic/Lymphatic: Denies easy bleeding or easy bruising Vital Signs Vital Signs Vital Signs: 03/21/21 18:04 03/21/21 18:14 03/21/21 18:58 Temperature 98.8 F Temperature Source Oral Pulse Rate 95 Respiratory Rate 18 Blood Pressure 115/64 Blood Pressure Mean 81 Pulse Ox 87 98 Oxygen Delivery Method Room Air Nasal Cannula Nasal Cannula Oxygen Flow Rate (L/min) 2 2 03/21/21 19:22 03/21/21 20:22 03/21/21 22:09 Temperature 98.8 F 98.1 F 98.8 F Temperature Source Oral Oral Oral Pulse Rate 95 98 93 Respiratory Rate 18 18 18 Blood Pressure 115/64 163/95 H 135/85 H Blood Pressure Mean 81 117 101 Pulse Ox 98 98 95 Oxygen Delivery Method Nasal Cannula Nasal Cannula Nasal Cannula Oxygen Flow Rate (L/min) 2 2 2 Physical Exam Const alert and oriented x3 General Appearance: cooperative HEENT normocephalic and head/scalp atraumatic Eyes PERRL Neck supple, no JVD and thyroid normal General: trachea midline Lymph Lymphatic: no lymphadenopathy noted Resp normal respiratory effort and normal air movement Auscultation: diminished lung sounds diffuse Cardio regular rate, regular rhythm, S1 normal heart sound and S2 normal heart sound GI normal to inspection, nondistended, normoactive bowel sounds, soft to palpation and non-tender Extremity normal capillary refill and no clubbing, cyanosis or edema General Extremity: no tenderness to palpation of joints or extremities Skin Skin Narrative: Chronic wound to coccyx General Skin Exam: turgor normal Rashes: no rashes Wounds: wounds noted Neuro CN's II-XII intact bilaterally Psych thought process normal, cooperative and affect normal Appearance: appropriate Lab / Micro Data Result Diagrams: 03/21/21 19:34 03/21/21 19:34 Labs: Laboratory Results - last 24 hr 03/21/21 03/21/21 03/21/21 19:34 19:34 19:34 WBC 4.2 L RBC 2.99 L Hgb 7.4 L Hct 25.3 L MCV 84.6 MCH 24.7 L MCHC 29.2 L RDW Std Deviation 55.2 H RDW Coeff of Jessi 18.0 H Plt Count 525 H MPV 8.5 Immature Gran % (Auto) 1.400 H Neut % (Auto) 61.2 Lymph % (Auto) 20.0 [place] % (Auto) 13.5 H Eos % (Auto) 2.9 Baso % (Auto) 1.0 Absolute Neuts (auto) 2.5 Absolute Lymphs (auto) 0.83 Nucleated RBC % 0 Sodium 133 L Potassium 3.7 Chloride 100 Carbon Dioxide 26.0 Anion Gap 7 BUN 22 H Creatinine 1.52 H Estim Creat Clear Calc 30.40 Est GFR (MDRD) Af Amer 43 L Est GFR (MDRD) Non-Af 36 L BUN/Creatinine Ratio 14.5 Glucose 86 Lactic Acid 1.6 Calcium 8.2 L Total Bilirubin 0.20 AST 7 L ALT 9 L Alkaline Phosphatase 97 Troponin I < 0.015 Total Protein 7.8 Albumin 1.7 L Globulin 6.1 H Albumin/Globulin Ratio 0.3 L Urine Color Urine Clarity Urine pH Ur Specific [place] Urine Protein Urine Glucose (UA) Urine Ketones Urine Occult Blood Urine Nitrite Urine Bilirubin Urine Urobilinogen Ur Leukocyte Esterase Urine RBC Urine WBC Ur Squamous Epith Cells Urine Bacteria Urine Mucus 03/21/21 20:59 WBC RBC Hgb Hct MCV MCH MCHC RDW Std Deviation RDW Coeff of Jessi Plt Count MPV Immature Gran % (Auto) Neut % (Auto) Lymph % (Auto) [place] % (Auto) Eos % (Auto) Baso % (Auto) Absolute Neuts (auto) Absolute Lymphs (auto) Nucleated RBC % Sodium Potassium Chloride Carbon Dioxide Anion Gap BUN Creatinine Estim Creat Clear Calc Est GFR (MDRD) Af Amer Est GFR (MDRD) Non-Af BUN/Creatinine Ratio Glucose Lactic Acid Calcium Total Bilirubin AST ALT Alkaline Phosphatase Troponin I Total Protein Albumin Globulin Albumin/Globulin Ratio Urine Color Brown Urine Clarity Turbid Urine pH 7.0 Ur Specific [place] 1.010 Urine Protein 100 H Urine Glucose (UA) Normal Urine Ketones 5 H Urine Occult Blood 250 H Urine Nitrite Positive H Urine Bilirubin Negative Urine Urobilinogen Normal Ur Leukocyte Esterase 500 H Urine RBC 0 SEEN Urine WBC >100 SEEN Ur Squamous Epith Cells 0 SEEN Urine Bacteria 2+ Urine Mucus 0 SEEN Micro: Microbiology 03/21/21 18:40 SARS-CoV-2 Antigen (Rapid) - Final Nasal Secretion Radiology Impression Chest X-Ray 03/21/21 18:31 IMPRESSION: No acute radiographic abnormalities. Electronically Signed: Fuad De Luna MD at 19:19 EDT Tel , Service support , Assessment & Plan Assessment/Plan (1) Acute UTI: (2) Hypoxia: (3) Acute on chronic anemia: (4) Hypertension: QUALIFIERS: Hypertension type: essential hypertension Qualified Code(s): I10 - Essential (primary) hypertension (5) Body mass index (BMI) of 40.1 to 44.9 in adult: (6) Wheelchair dependence: PLAN: 1. Acute UTI -Admit to [facility] for IV antibiotic therapy -Patient has seen Dr. Flores and Dr. Andrews in the past for chronic UTIs -Rocephin IV will be continued, first dose in ER pending blood cultures. Historically organisms and blood cultures have been susceptible to Rocephin -Suprapubic catheter changed every Monday per patient report -PT and OT to eval and treat 2. Hypoxia -Likely hypoxic due to obese hypoventilation syndrome due to patient not symptomatic or dyspneic -Chest x-ray negative for acute findings -Oxygen therapy per protocol 3. Acute on chronic anemia -Upon review of labs patient appears to have anemia of chronic disease, however baseline trends around 8.5. -We will trend CBC daily 4. Chronic kidney disease stage IIIb -Upon review of labs patient baseline GFR 35-45, currently 36. -Will trend CMP daily 5. Hypertension -Continue home regimen of Lasix and metoprolol. -Vital signs per protocol 6. Body mass index of 40.1-44.9 in adult -Encourage lifestyle modifications, patient limited due to wheelchair dependent 7. Wheelchair dependence DVT Prophylaxis- This patient was seen by DEDRICK Frias under the supervision of Dr. Dutta. (7) Chronic kidney disease, stage 3b: Documented by User: Dr. Kyree Dutta MD 03/21/21 23:08 HPI - General General Date of Admission: 03/21/21 [facility] Medical History Anxiety and depression Candidal intertrigo Debility DM2 (diabetes mellitus, type 2) Essential hypertension History of atrial fibrillation HLD (hyperlipidemia) Morbid obesity VITA (obstructive sleep apnea) VITA (obstructive sleep apnea) Pressure ulcer of coccygeal region, stage 3 Severe sepsis Ulcer of abdomen wall with fat layer exposed Ulcer of left groin with fat layer exposed UTI (urinary tract infection) due to urinary indwelling catheter V tach Home Medications albuterol sulfate 2 puff INHALATION Q4H PRN PRN 10/30/18 [History Last Taken Unknown] pravastatin 20 mg PO QHS 12/17/18 [History Last Taken 08/06/20] venlafaxine 150 mg PO BID 07/02/19 [History Last Taken 08/07/20] potassium chloride 10 meq PO DAILYCM 08/18/19 [History Last Taken 08/06/20] aspirin 81 mg PO DAILY #0 [facility] 08/13/20 [Rx Last Taken Unknown] methenamine hippurate 1 gm PO BID #0 08/13/20 [Rx Last Taken 08/07/20] famotidine 20 mg PO QHS 10/15/20 [History Last Taken Unknown] furosemide 20 mg PO BID 02/12/21 [History Last Taken Unknown] acetaminophen 1,000 mg PO Q6H PRN PRN tablet 02/18/21 [Rx Last Taken Unknown] [id number]-[id number]-[id number]-[id number]-[id number] 1 packet PO BIDCM #60 packet 02/18/21 [Rx Last Taken Unknown] diphenhydramine HCl 25 mg PO TID PRN PRN capsule 02/18/21 [Rx Last Taken Unknown] metoprolol tartrate 25 mg PO DAILY #30 tablet 02/18/21 [Rx Last Taken Unknown] oxybutynin chloride 5 mg PO TIDCM #90 tablet 02/18/21 [Rx Last Taken Unknown] Allergy/AdvReac Type Severity Reaction Status Date / Time adhesive tape Allergy blisters Verified 02/08/21 16:29 Influenza Virus Vaccines Allergy shortness Verified 02/08/21 16:29 of breath/severe wheezing iron Allergy from IV Verified 02/08/21 16:29 form chest pressure and heart palpitations Sulfa (Sulfonamide Allergy Shortness Verified 02/08/21 16:29 Antibiotics) of breath meloxicam [From Mobic] AdvReac gi upset Verified 02/08/21 16:29 seasonal allergies Allergy Other Uncoded 02/08/21 16:29 Surgical History H/O: hysterectomy History of cholecystectomy History of tonsillectomy Hx of appendectomy Social History Smoking Status: Never smoker Lab / Micro Data Result Diagrams: 03/21/21 19:34 03/21/21 19:34 Addendum Addendum: The patient was seen and examined. I agree with assessment and plan by Kacie Booker NP Patient reported history of 3 to 4-day weakness. Reportedly paramedics has been to her house multiple occasions in the last 1 and half weeks and on this day of presentation paramedics determined that she should be brought to the hospital. Paramedics reported upon arrival oxygen saturation was in the 70s on 2 L. At baseline patient uses 3 L of oxygen. Patient used to use some kind of noninvasive pressure ventilation. However for some time. She has not been using it and she needs recertification for that. Patient reports that her urine smells bad and she has had urinary leakage from her suprapubic catheter. She reports blood clots in the urine and denies bleeding from anywhere else. Previously she used to get bladder washes with Betadine. However that was change to something different. She thinks that the new regimen for bladder washing does not work. Her suprabupic catheter is changed on tuesdays. She follows up with Dr. Andrews. Patient is alert and oreinted x 3 Heart sounds S1-S2 present Lung clear to auscultate Abdomen soft nontender bowel sounds present. Suprapubic area with ac discharge. Urinary catheter with blood clots. Skin: Coccyx with pressure ulcer Acute on chronic UTI secondary to indwelling Henry catheter. Review of previous records show that on 02/08/2021 urine culture returned positive for E. coli and Proteus mirabilis both sensitive to ceftriaxone. Based on previous culture and sensitivity patient will be started on ceftriaxone. Bladder irrigation with betadine as before. Followed up with Dr. Bolden and Darryl in the past. Trend CBC and BMP. Debility PT and OT to work with patient. Hypoxia Titrate oxygen. No other symptoms of viral infection or pneumonia. Acute on chronic anemia Likely from inflammatory anemia and blood loss from Henry catheter. Trend CBC. Stage III decubitus ulcer Wet-to-dry dressing Wound care consult. DVT Prophylaxis SCD. Visit Charges Inpatient E&M: 78361 Init Hosp L3
[2021-03-21 22:38] VITALS: BP 131/57; PULSE 90; RESP 18; TEMP 36.6; O2SAT 100
[2021-03-21 22:39] VITALS: BMI 41.1
[2021-03-22] MEDS: Venlafaxine XR 150 MG Capsule PO ×3 (00:05→22:06)
[2021-03-22] MEDS: Pravastatin 20 MG Tablet PO ×2 (00:05→22:06)
[2021-03-22] MEDS: Furosemide 20 MG Tablet PO ×3 (00:05→22:06)
[2021-03-22] MEDS: Pantoprazole Sodium 20 MG Tablet PO ×2 (00:16→09:31)
[2021-03-22 03:51] VITALS: BP 124/66; PULSE 75; RESP 18; TEMP 36.9; O2SAT 100
[2021-03-22] MEDS: Nystatin Powder 15gm Bottle 1 APPLIC TOPICAL ×3 (05:04→21:54)
[2021-03-22 07:18] VITALS: O2SAT 98
[2021-03-22 07:26] LABS: Absolute Lymphocyte Count 0.68 X10^3/uL (0.83-4.51); Absolute Neutrophil Count 2.6 X10^3/uL (2.0-7.7); Basophil# 0.04 X10^3/uL; Basophil% 0.9 % (0-1); Eosinophil# 0.15 X10^3/uL; Eosinophils% 3.5 % (0-5); Hematocrit 23.9 % (37-47); Hemoglobin 6.9 g/dL (12.0-15.0); Lymphocyte # 0.68 X10^3/ul (0.83-4.51); Mean Corp Hgb Conc 28.9 g/dL (32-36); Mean Corpuscular Hgb 24.3 pg (27.0-32.0); Mean Corpuscular Volume 84.2 fL (81-99); Mean Platelet Vol. 8.5 fl (6.2-12.0); Monocyte% 16.5 % (0-10); NRBC Flagged by Analyzer 0 % (0-5); Neutrophil # 2.62 X10^3/uL (2.7-7.7); Neutrophil % 61.9 % (47-70); Platelet Count 472 K/mm3 (150-450); RBC Distribution Width CV 18.1 % (11.6-14.6); RBC Distribution Width SD 55.6 fl (35.1-43.9); Red Blood Count 2.84 M/mm3 (4.2-5.4); White Blood Count 4.2 K/mm3 (4.4-11.0)
--- NOTE | 2021-03-22 07:32 | CON.PCM.UR_ITS ---
Assessment & Plan Assessment/Plan (1) UTI (urinary tract infection): QUALIFIERS: Indwelling urinary catheter type: indwelling urethral catheter PLAN: Suprapubic catheter change at the bedside. She is chronically colonized with bacteria. Probably okay to cover her with antibiotics during the change but for now long-term I would not overdo since it will just lead to resistance. Call me with questions. HPI Consult Data Date of Consult: 03/22/21 HPI Narrative HPI Narrative: ISELA CAMARENA, is a 75 F who presents presents to the hospital with a leaking suprapubic catheter, she has a chronic suprapubic cath care given her severe obesity for a long time, she told me that she called the squad because her suprapubic catheter was leaking and she was brought to the emergency room she was then admitted. She is chronically colonized with bacteria she is on antibiotics right now. [facility] Medical History Anxiety and depression Candidal intertrigo Debility DM2 (diabetes mellitus, type 2) Essential hypertension History of atrial fibrillation HLD (hyperlipidemia) Morbid obesity VITA (obstructive sleep apnea) VITA (obstructive sleep apnea) Pressure ulcer of coccygeal region, stage 3 Severe sepsis Ulcer of abdomen wall with fat layer exposed Ulcer of left groin with fat layer exposed UTI (urinary tract infection) due to urinary indwelling catheter V tach Home Medications albuterol sulfate 2 puff INHALATION Q4H PRN PRN 10/30/18 [History Last Taken Unknown] pravastatin 20 mg PO QHS 12/17/18 [History Last Taken 08/06/20] venlafaxine 150 mg PO BID 07/02/19 [History Last Taken 08/07/20] potassium chloride 10 meq PO DAILYCM 08/18/19 [History Last Taken 08/06/20] aspirin 81 mg PO DAILY #0 [facility] heart [facility] 08/13/20 [Rx Last Taken Unknown] methenamine hippurate 1 gm PO BID #0 08/13/20 [Rx Last Taken 08/07/20] famotidine 20 mg PO QHS 10/15/20 [History Last Taken Unknown] furosemide 20 mg PO BID 02/12/21 [History Last Taken Unknown] acetaminophen 1,000 mg PO Q6H PRN PRN tablet 02/18/21 [Rx Last Taken Unknown] [id number] 1 packet PO BIDCM #60 packet 02/18/21 [Rx Last Taken Unknown] diphenhydramine HCl 25 mg PO TID PRN PRN capsule 02/18/21 [Rx Last Taken Unknown] metoprolol tartrate 25 mg PO DAILY #30 tablet 02/18/21 [Rx Last Taken Unknown] oxybutynin chloride 5 mg PO TIDCM #90 tablet 02/18/21 [Rx Last Taken Unknown] Allergy/AdvReac Type Severity Reaction Status Date / Time adhesive tape Allergy blisters Verified 02/08/21 16:29 Influenza Virus Vaccines Allergy shortness Verified 02/08/21 16:29 of breath/severe wheezing iron Allergy from IV Verified 02/08/21 16:29 form chest pressure and heart palpitations Sulfa (Sulfonamide Allergy Shortness Verified 02/08/21 16:29 Antibiotics) of breath meloxicam [From Mobic] AdvReac gi upset Verified 02/08/21 16:29 seasonal allergies Allergy Other Uncoded 02/08/21 16:29 Surgical History H/O: hysterectomy History of cholecystectomy History of tonsillectomy Hx of appendectomy Social History Smoking Status: Never smoker Physical Exam Narrative Very ill obese sedentary patient pale looking, with severe obesity in the abdomen. She has a suprapubic tube in the suprapubic area and the old catheter was removed and a new 22 Romanian catheter with 20 cc in the balloon was put into the bladder. Lab / Micro Data Result Diagrams: 03/22/21 07:06 03/21/21 19:34 Labs: Laboratory Results - last 24 hr 03/21/21 03/21/21 03/21/21 19:34 19:34 19:34 WBC 4.2 L RBC 2.99 L Hgb 7.4 L Hct 25.3 L MCV 84.6 MCH 24.7 L MCHC 29.2 L RDW Std Deviation 55.2 H RDW Coeff of Jessi 18.0 H Plt Count 525 H MPV 8.5 Immature Gran % (Auto) 1.400 H Neut % (Auto) 61.2 Lymph % (Auto) 20.0 [place] % (Auto) 13.5 H Eos % (Auto) 2.9 Baso % (Auto) 1.0 Absolute Neuts (auto) 2.5 Absolute Lymphs (auto) 0.83 Nucleated RBC % 0 Sodium 133 L Potassium 3.7 Chloride 100 Carbon Dioxide 26.0 Anion Gap 7 BUN 22 H Creatinine 1.52 H Estim Creat Clear Calc 30.40 Est GFR (MDRD) Af Amer 43 L Est GFR (MDRD) Non-Af 36 L BUN/Creatinine Ratio 14.5 Glucose 86 Lactic Acid 1.6 Calcium 8.2 L Total Bilirubin 0.20 AST 7 L ALT 9 L Alkaline Phosphatase 97 Troponin I < 0.015 Total Protein 7.8 Albumin 1.7 L Globulin 6.1 H Albumin/Globulin Ratio 0.3 L Urine Color Urine Clarity Urine pH Ur Specific [place] Urine Protein Urine Glucose (UA) Urine Ketones Urine Occult Blood Urine Nitrite Urine Bilirubin Urine Urobilinogen Ur Leukocyte Esterase Urine RBC Urine WBC Ur Squamous Epith Cells Urine Bacteria Urine Mucus 03/21/21 03/22/21 20:59 07:06 WBC 4.2 L RBC 2.84 L Hgb 6.9 L Hct 23.9 L MCV 84.2 MCH 24.3 L MCHC 28.9 L RDW Std Deviation 55.6 H RDW Coeff of Jessi 18.1 H Plt Count 472 H MPV 8.5 Immature Gran % (Auto) 1.200 H Neut % (Auto) 61.9 Lymph % (Auto) 16.0 L [place] % (Auto) 16.5 H Eos % (Auto) 3.5 Baso % (Auto) 0.9 Absolute Neuts (auto) 2.6 Absolute Lymphs (auto) 0.68 L Nucleated RBC % 0 Sodium Potassium Chloride Carbon Dioxide Anion Gap BUN Creatinine Estim Creat Clear Calc Est GFR (MDRD) Af Amer Est GFR (MDRD) Non-Af BUN/Creatinine Ratio Glucose Lactic Acid Calcium Total Bilirubin AST ALT Alkaline Phosphatase Troponin I Total Protein Albumin Globulin Albumin/Globulin Ratio Urine Color Brown Urine Clarity Turbid Urine pH 7.0 Ur Specific [place] 1.010 Urine Protein 100 H Urine Glucose (UA) Normal Urine Ketones 5 H Urine Occult Blood 250 H Urine Nitrite Positive H Urine Bilirubin Negative Urine Urobilinogen Normal Ur Leukocyte Esterase 500 H Urine RBC 0 SEEN Urine WBC >100 SEEN Ur Squamous Epith Cells 0 SEEN Urine Bacteria 2+ Urine Mucus 0 SEEN Micro: Microbiology 03/21/21 18:40 SARS-CoV-2 Antigen (Rapid) - Final Nasal Secretion Radiology Impression Chest X-Ray 03/21/21 18:31 IMPRESSION: No acute radiographic abnormalities. Electronically Signed: Fuad De Luna MD at 19:19 EDT Tel , Service support ,
[2021-03-22 07:51] LABS: ALB/GLOB Ratio 0.3 RATIO (0.9-2.4); AST(SGOT) 7 U/L (15-37); Alanine Aminotransfer ALT/SGPT 8 U/L (13-56); Albumin, Serum 1.6 g/dL (3.2-5.0); Alkaline Phosphatase 91 U/L (45-117); Anion Gap 5 (5-15); BUN 21 mg/dL (7-18); BUN/Creat Ratio 14.5 RATIO (10-20); Calcium,Total 7.8 mg/dL (8.5-10.1); Chloride 102 mmol/L (98-107); Creatinine, Serum 1.45 mg/dL (0.55-1.02); EST Glomerular Filtration Rate 38 mL/min (>60); Est Glom Filt Rate - Afr Amer 45 mL/min (>60); Estimated Creatinine Clearance 31.87 ml/min; Globulin 5.7 g/dL (2.2-4.2); Glucose 114 mg/dL (74-106); Potassium 3.4 mmol/L (3.5-5.1); Protein, Total 7.3 g/dL (6.4-8.2); Sodium Level 132 mmol/L (136-145)
[2021-03-22 08:25] VITALS: BP 122/67; PULSE 92; RESP 16; TEMP 37.2; O2SAT 100
--- NOTE | 2021-03-22 08:32 | NURSING ---
wound photo: sacrum
--- NOTE | 2021-03-22 08:33 | NURSING ---
wound photo: left upper inner thigh
[2021-03-22] MEDS: Potassium Chloride Oral Tablet 10 MEQ PO (08:45)
[2021-03-22] MEDS: Oxybutynin 5 MG Tablet PO ×3 (08:45→16:38)
[2021-03-22] MEDS: Aspirin 81 MG TAB.CHEW PO (08:46)
[2021-03-22 09:29] VITALS: PULSE 92
[2021-03-22] MEDS: Metoprolol Tartrate 25 MG Tablet PO (09:29)
[2021-03-22] MEDS: Menthol/Lanolin/Calamine/Znox 113 GM Tube 1 APPLIC TOPICAL ×2 (09:33→22:01)
[2021-03-22] MEDS: oxyCODONE 5 MG Tablet 10 MG PO (10:35)
--- NOTE | 2021-03-22 10:51 | CASEMGMT ---
Addendum entered by Asya Mcdermott 03/22/21 14:53: Per [place] at Palliative, pt is still active with palliative care and was last seen on 03/19/21. Pt is scheduled to be seen again on 03/25/21. Margoth MUÑOZ CM updated, voices understanding. Berry MUÑOZ CM Addendum entered by Asya Mcdermott 03/22/21 11:10: Pt did qualify for palliative referral during last admit and referral was made. Berry MUÑOZ CM Original Note: Readmission chart review: Pt was initially admitted to [facility] for UTI, Acute on chronic anemia 02/09-02/12/21 and was discharged to TCU at that time. Pt has a suprapubic catheter. Pt was in TCU 02/12-02/20/21 and then was discharged home from there with [facility] SN. Pt is still active with [facility]. Pt returned to [facility] ED on 03/21/21 for weakness, and suprapubic catheter leaking. Pt admitted to [facility] again for UTI and per Dr. Andrews(who pt sees), pt is chronically colonized for bacteria but ok to place on antibx during stay but not watermaster. CM to follow PT/OT notes and for any further discharge planning/needs. Berry MUÑOZ CM
[2021-03-22 13:27] VITALS: BP 106/53; PULSE 82; RESP 16; TEMP 37.2; O2SAT 95
--- NOTE | 2021-03-22 14:28 | PCM.PN.HOSP ---
Subjective Subjective: [place] ill several days prior to arrival. Objective Data Objective Data Vital Signs: Vital Signs Temp Pulse Resp BP Pulse Ox 37.2 C 82 16 106/53 L 95 03/22/21 13:27 03/22/21 13:27 03/22/21 13:27 03/22/21 13:27 03/22/21 13:27 Oxygen Flow Rate (L/min) 2 Oxygen Delivery Method Room Air Weight: 115.4 kg Body Mass Index (BMI) 41.1 Finger Stick Blood Glucose 150 Intake & Output: Intake and Output for Last 24 Hours 03/20/21 03/21/21 03/22/21 23:59 23:59 23:59 Intake Total 550 / 790 540 / 540 Output Total 1000 / 1000 Balance 550 / 515 -460 / -460 Lab / Micro Data Result Diagrams: 03/22/21 07:06 03/22/21 07:06 Labs: Laboratory Results - last 24 hr 03/21/21 03/21/21 03/21/21 19:34 19:34 19:34 WBC 4.2 L RBC 2.99 L Hgb 7.4 L Hct 25.3 L MCV 84.6 MCH 24.7 L MCHC 29.2 L RDW Std Deviation 55.2 H RDW Coeff of Jessi 18.0 H Plt Count 525 H MPV 8.5 Immature Gran % (Auto) 1.400 H Neut % (Auto) 61.2 Lymph % (Auto) 20.0 [place] % (Auto) 13.5 H Eos % (Auto) 2.9 Baso % (Auto) 1.0 Absolute Neuts (auto) 2.5 Absolute Lymphs (auto) 0.83 Nucleated RBC % 0 Sodium 133 L Potassium 3.7 Chloride 100 Carbon Dioxide 26.0 Anion Gap 7 BUN 22 H Creatinine 1.52 H Estim Creat Clear Calc 30.40 Est GFR (MDRD) Af Amer 43 L Est GFR (MDRD) Non-Af 36 L BUN/Creatinine Ratio 14.5 Glucose 86 Lactic Acid 1.6 Calcium 8.2 L Total Bilirubin 0.20 AST 7 L ALT 9 L Alkaline Phosphatase 97 Troponin I < 0.015 Total Protein 7.8 Albumin 1.7 L Globulin 6.1 H Albumin/Globulin Ratio 0.3 L Urine Color Urine Clarity Urine pH Ur Specific [place] Urine Protein Urine Glucose (UA) Urine Ketones Urine Occult Blood Urine Nitrite Urine Bilirubin Urine Urobilinogen Ur Leukocyte Esterase Urine RBC Urine WBC Ur Squamous Epith Cells Urine Bacteria Urine Mucus 03/21/21 03/22/21 03/22/21 20:59 07:06 07:06 WBC 4.2 L RBC 2.84 L Hgb 6.9 L Hct 23.9 L MCV 84.2 MCH 24.3 L MCHC 28.9 L RDW Std Deviation 55.6 H RDW Coeff of Jessi 18.1 H Plt Count 472 H MPV 8.5 Immature Gran % (Auto) 1.200 H Neut % (Auto) 61.9 Lymph % (Auto) 16.0 L [place] % (Auto) 16.5 H Eos % (Auto) 3.5 Baso % (Auto) 0.9 Absolute Neuts (auto) 2.6 Absolute Lymphs (auto) 0.68 L Nucleated RBC % 0 Sodium 132 L Potassium 3.4 L Chloride 102 Carbon Dioxide 25.0 Anion Gap 5 BUN 21 H Creatinine 1.45 H Estim Creat Clear Calc 31.87 Est GFR (MDRD) Af Amer 45 L Est GFR (MDRD) Non-Af 38 L BUN/Creatinine Ratio 14.5 Glucose 114 H Lactic Acid Calcium 7.8 L Total Bilirubin 0.30 AST 7 L ALT 8 L Alkaline Phosphatase 91 Troponin I Total Protein 7.3 Albumin 1.6 L Globulin 5.7 H Albumin/Globulin Ratio 0.3 L Urine Color Brown Urine Clarity Turbid Urine pH 7.0 Ur Specific [place] 1.010 Urine Protein 100 H Urine Glucose (UA) Normal Urine Ketones 5 H Urine Occult Blood 250 H Urine Nitrite Positive H Urine Bilirubin Negative Urine Urobilinogen Normal Ur Leukocyte Esterase 500 H Urine RBC 0 SEEN Urine WBC >100 SEEN Ur Squamous Epith Cells 0 SEEN Urine Bacteria 2+ Urine Mucus 0 SEEN Micro: Microbiology 03/21/21 20:59 Urine Catheter - Catheter Urine Culture - Preliminary GNR lactose assistant director Gram negative odin 03/21/21 18:40 Nasal Secretion SARS-CoV-2 Antigen (Rapid) - Final Radiography Diagnostic Testing: Radiology Impression Chest X-Ray 03/21/21 18:31 IMPRESSION: No acute radiographic abnormalities. Electronically Signed: Fuad De Luna MD at 19:19 EDT Tel , Service support , Physical Exam Const alert HEENT Head and Scalp: normocephalic Eyes PERRL Resp normal respiratory effort, no use of accessory muscles and clear to auscultation bilaterally Cardio regular rate, regular rhythm, S1 normal heart sound and S2 normal heart sound GI normal to inspection, nondistended, normoactive bowel sounds, non-tender and non-distended Assessment & Plan Assessment/Plan (1) Acute UTI: (2) Hypoxia: (3) Acute on chronic anemia: (4) Hypertension: QUALIFIERS: Hypertension type: essential hypertension Qualified Code(s): I10 - Essential (primary) hypertension (5) Body mass index (BMI) of 40.1 to 44.9 in adult: (6) Wheelchair dependence: (7) Chronic kidney disease, stage 3b: PLAN: 1. Acute UTI -Catheter-associated -Patient has seen Dr. Flores and Dr. Andrews in the past for chronic UTIs -Rocephin IV will be continued, first dose in ER pending blood cultures. Historically organisms and blood cultures have been susceptible to Rocephin -Seen by ID, recommended augmenting for 5 more days. -Suprapubic catheter changed every Monday per patient report -PT and OT to eval and treat 2. Hypoxia -Likely hypoxic due to obese hypoventilation syndrome due to patient not symptomatic or dyspneic -Chest x-ray negative for acute findings -Oxygen therapy per protocol 3. Acute on chronic anemia -Upon review of labs patient appears to have anemia of chronic disease, however baseline trends around 8.5. -We will trend CBC daily -Hg down to 6.9 today. -recheck 4. Chronic kidney disease stage IIIb -Upon review of labs patient baseline GFR 35-45, currently 36. -Will trend CMP daily 5. Hypertension -Continue home regimen of Lasix and metoprolol. -Vital signs per protocol 6. Body mass index of 40.1-44.9 in adult -Encourage lifestyle modifications, patient limited due to wheelchair dependent 7. Wheelchair dependence DVT Prophylaxis- Visit Charges Inpatient E&M: 75432 Subs Hosp L2
--- NOTE | 2021-03-22 15:21 | CHAPLAIN ---
Type of Pastoral Visit _x__ Initial Visit ___ Follow-up Visit ___ On-call Visit ___ General Patient Visit ___ Spiritual Assessment ___ Family Conference ___ Bereavement ___ Rapid Response ___ Code Blue ___ Other (describe below) Pastoral Care Referral From _x__ Patient ___ Family ___ Nurse ___ Physician ___ Gas Burner Operator ___ Agitator Operator ___ Other (describe below) Sacrament/Intervention _x__ Active listening ___ Anointing ___ Religious ___ Bereavement ___ Communion ___ Diane exploration ___ _x__ Life review _x__ Prayer ___ Reconciliation ___ Sacrament of Sick _x__ Supportive presence ___ Wedding ___ Other (describe below) Pastoral Comments patient is talkative and gives some life details and some recent history; pt has good social [place] for support and a caregiver; pt has a diane connection and welcomes prayer support
[2021-03-22 15:37] LABS: Absolute Lymphocyte Count 0.92 X10^3/uL (0.83-4.51); Basophil# 0.04 X10^3/uL; Eosinophil# 0.17 X10^3/uL; Eosinophils% 4.4 % (0-5); Hematocrit 23.8 % (37-47); Hemoglobin 6.7 g/dL (12.0-15.0); Lymphocyte # 0.92 X10^3/ul (0.83-4.51); Lymphocyte % 23.8 % (19-41); Mean Corp Hgb Conc 28.2 g/dL (32-36); Mean Corpuscular Hgb 24.1 pg (27.0-32.0); Mean Corpuscular Volume 85.6 fL (81-99); Mean Platelet Vol. 8.6 fl (6.2-12.0); Monocyte# 0.64 X10^3/uL; Monocyte% 16.6 % (0-10); NRBC Flagged by Analyzer 0 % (0-5); Neutrophil # 2.04 X10^3/uL (2.7-7.7); Neutrophil % 52.9 % (47-70); Platelet Count 509 K/mm3 (150-450); RBC Distribution Width CV 18.3 % (11.6-14.6); RBC Distribution Width SD 57.1 fl (35.1-43.9); Red Blood Count 2.78 M/mm3 (4.2-5.4); White Blood Count 3.9 K/mm3 (4.4-11.0)
[2021-03-22 19:56] VITALS: BP 104/50; PULSE 82; RESP 18; TEMP 37.2; O2SAT 94
[2021-03-22] MEDS: 0.9% Saline Lock 10 ML Syringe IV (22:02)
[2021-03-22] MEDS: Ceftriaxone 1 GM/50 ML BAG IV (22:02)
[2021-03-23] VITALS (8 sets, daily range): BP systolic 104–114; BP diastolic 42–60; PULSE 77–91; RESP 16–18; TEMP 36.7–37.1; O2SAT 95–99
[2021-03-23] MEDS: Acetaminophen 500 MG Tablet 1000 MG PO ×2 (06:03→15:44)
[2021-03-23] MEDS: Nystatin Powder 15gm Bottle 1 APPLIC TOPICAL ×3 (06:04→22:01)
[2021-03-23 07:12] LABS: Hematocrit 22.7 % (37-47); Hemoglobin 6.7 g/dL (12.0-15.0); Mean Corp Hgb Conc 29.5 g/dL (32-36); Mean Corpuscular Hgb 24.7 pg (27.0-32.0); Mean Corpuscular Volume 83.8 fL (81-99); Mean Platelet Vol. 8.5 fl (6.2-12.0); Platelet Count 436 K/mm3 (150-450); RBC Distribution Width SD 54.4 fl (35.1-43.9); Red Blood Count 2.71 M/mm3 (4.2-5.4); White Blood Count 3.8 K/mm3 (4.4-11.0)
[2021-03-23 07:35] LABS: Anion Gap 4 (5-15); BUN 22 mg/dL (7-18); Calcium,Total 7.8 mg/dL (8.5-10.1); Chloride 100 mmol/L (98-107); Creatinine, Serum 1.47 mg/dL (0.55-1.02); EST Glomerular Filtration Rate 37 mL/min (>60); Est Glom Filt Rate - Afr Amer 45 mL/min (>60); Estimated Creatinine Clearance 31.43 ml/min; Glucose 100 mg/dL (74-106); Potassium 3.3 mmol/L (3.5-5.1); Sodium Level 131 mmol/L (136-145)
--- NOTE | 2021-03-23 09:47 | PN.HOSP_ITS ---
Subjective Subjective: Myriad of complaints today. Still leaking around SPC. Unsatisfied with encounter with Dr. Andrews. She states that he did not evacuate the balloon completely before removing, then he did not adequately inflate the balloon with the new catheter. She wants another evaluation with Dr. Browne. She is complaining about her mechanical soft diet, which she admittedly requested because she was too weak to cut her own foods. She feels that she would choke more on this food, rather than a regular diet. Objective Data Objective Data Vital Signs: Vital Signs Temp Pulse Resp BP Pulse Ox 37.1 C 91 18 104/42 L 99 03/23/21 02:32 03/23/21 02:32 03/23/21 02:32 03/23/21 02:32 03/23/21 08:49 Oxygen Flow Rate (L/min) 2 Oxygen Delivery Method Nasal Cannula Weight: 115.4 kg Body Mass Index (BMI) 41.1 Finger Stick Blood Glucose 150 Intake & Output: Intake and Output for Last 24 Hours 03/21/21 03/22/21 03/23/21 23:59 23:59 23:59 Intake Total 550 / 790 890 / 890 300 / 300 Output Total 1750 / 1750 675 / 675 Balance 550 / 515 -860 / -860 -375 / -375 Lab / Micro Data Result Diagrams: 03/23/21 06:15 03/23/21 06:15 Labs: Laboratory Results - last 24 hr 03/22/21 03/23/21 03/23/21 14:42 06:15 06:15 WBC 3.9 L 3.8 L RBC 2.78 L 2.71 L Hgb 6.7 L 6.7 L Hct 23.8 L 22.7 L MCV 85.6 83.8 MCH 24.1 L 24.7 L MCHC 28.2 L 29.5 L RDW Std Deviation 57.1 H 54.4 H RDW Coeff of Jessi 18.3 H 18.0 H Plt Count 509 H 436 MPV 8.6 8.5 Immature Gran % (Auto) 1.300 H Neut % (Auto) 52.9 Lymph % (Auto) 23.8 [place] % (Auto) 16.6 H Eos % (Auto) 4.4 Baso % (Auto) 1.0 Absolute Neuts (auto) 2.0 Absolute Lymphs (auto) 0.92 Nucleated RBC % 0 Sodium 131 L Potassium 3.3 L Chloride 100 Carbon Dioxide 27.0 Anion Gap 4 L BUN 22 H Creatinine 1.47 H Estim Creat Clear Calc 31.43 Est GFR (MDRD) Af Amer 45 L Est GFR (MDRD) Non-Af 37 L BUN/Creatinine Ratio 15.0 Glucose 100 Calcium 7.8 L Micro: Microbiology 03/21/21 20:59 Urine Catheter - Catheter Urine Culture - Preliminary Escherichia coli Gram negative odin 03/21/21 18:40 Nasal Secretion SARS-CoV-2 Antigen (Rapid) - Final Physical Exam Const alert, oriented x3 and no apparent distress Exam Limitations: no limitations Resp normal respiratory effort and clear to auscultation bilaterally Cardio regular rate, regular rhythm, S1 normal heart sound and S2 normal heart sound GI normal to inspection, nondistended, normoactive bowel sounds, non-tender and non-distended Extremity normal to inspection Neuro Sensorium / Orientation: awake and alert Psych Mood & Affect: anxious Assessment & Plan Assessment/Plan (1) Acute UTI: (2) Hypoxia: (3) Acute on chronic anemia: (4) Hypertension: QUALIFIERS: Hypertension type: essential hypertension Qualified Code(s): I10 - Essential (primary) hypertension (5) Body mass index (BMI) of 40.1 to 44.9 in adult: (6) Wheelchair dependence: (7) Chronic kidney disease, stage 3b: PLAN: 1. Acute UTI * Catheter-associated with SPC * Patient has seen Dr. Flores and Dr. Andrews in the past for chronic UTIs * Rocephin IV will be continued, first dose in ER pending blood cultures. Historically organisms and blood cultures have been susceptible to Rocephin. * Suprapubic catheter changed every Monday per patient report * Still leaking around SPC * She is requesting 2nd opinion with Dr. Browne. Page placed. 2. Hypoxia * Likely hypoxic due to obese hypoventilation syndrome due to patient not symptomatic or dyspneic * Chest x-ray negative for acute findings * Oxygen therapy per protocol 3. Acute on chronic anemia * Upon review of labs patient appears to have anemia of chronic disease, however baseline trends around 8.5. * Hg 6.7 * Transfuse 1 unit PRBC 4. Chronic kidney disease stage IIIb * stable * Upon review of labs patient baseline GFR 35-45, currently 36. 5. Hypertension -Continue home regimen of Lasix and metoprolol. -Vital signs per protocol 6. Body mass index of 40.1-44.9 in adult -Encourage lifestyle modifications, patient limited due to wheelchair dependent 7. Debility * Karnofsky score of 40 * Patient already involved with palliative care. Had a long conversation with the patient's regards to quality of life rather than quantity. Patient has frequent hospitalizations and is essentially dependent on ADLs and IADLs at home. DVT Prophylaxis-SCDs Greater than 35 minutes of which greater than present time was counseled the patient about urology, suprapubic catheter, diet and palliative care. Visit Charges Inpatient E&M: 71883 Subs Hosp L3
[2021-03-23] MEDS: Menthol/Lanolin/Calamine/Znox 113 GM Tube 1 APPLIC TOPICAL ×2 (10:17→22:03)
[2021-03-23] MEDS: Aspirin 81 MG TAB.CHEW PO (10:18)
[2021-03-23] MEDS: Metoprolol Tartrate 25 MG Tablet PO (10:19)
[2021-03-23] MEDS: Venlafaxine XR 150 MG Capsule PO ×2 (10:19→22:02)
[2021-03-23] MEDS: Oxybutynin 5 MG Tablet PO ×3 (10:19→17:15)
[2021-03-23] MEDS: Potassium Chloride Oral Tablet 10 MEQ PO (10:19)
[2021-03-23] MEDS: Furosemide 20 MG Tablet PO ×2 (10:19→22:02)
[2021-03-23] MEDS: Pantoprazole Sodium 20 MG Tablet PO (10:19)
--- NOTE | 2021-03-23 15:17 | CASEMGMT ---
Social Work Note SW in to speak with pt to provide support. SW introduced self and role at [facility]. Pt is alert and orientated, pt states she remembers this worker from previous visits. Pt states she feels like she is in this vicious cycle. SW asked pt to explain. Pt states she cannot remain out of the hospital for more than a month. Pt states when I am out I am back in or I am on my way to coming back into the hospital. Pt states she is wanting to get a second opinion on a couple of things. Pt states she had these spells when she was at home where she was weak and then everything was fine. Pt states she still has a caregiver that is available 05/06. Pt states that she feels well supported from friends and family. Pt states her sister is good support for her but her sister has a lot of other things going on right now. SW offered support to pt. Pt states that she thinks she has found something to help her stay a head of the UTI. Pt states she stumbled upon something to help out. Pt states there are two different installations of cleaning her bladder out. Pt states she was doing one of them and stopped to do the other one but states she now know which installation she needs to be on. SW asked pt about any MH health history. Pt states she has been off and on antidepressants her whole life. Pt states she does currently take Effexor. Pt states that at this time she feels terrible low depressed. SW offered support to pt. SW asked pt about any coping skills she is able to do. Pt states she usually gets her mixer out to make cookies but states she hasn't felt good enough to do that. SW asked pt about talking to anyone. Pt states talking doesn't always help. Pt states when she was at [facility] they had a counselor that would come in and talk to the residents. Pt states she spoke with the counselor. Pt denied any current counseling. Pt states I was raised to not feel sorry for myself. Pt states I was raised to do the best you can do, to trust in the Good Lord, and if you can fix it fix it but if not walk away. SW spoke with pt about depression linked to pt's multiple hospital admissions. Pt states you know Asya we are about to talk about things that I don't want to talk about today. SW informed pt that this worker can stop back tomorrow to check back in with pt or informed pt that can let staff know she would like to speak tomorrow to the SW. Pt states understanding. Pt denied any history of suicidal thoughts/plans/ideations. Pt denied any current suicidal thoughts/plans/ideations. Pt states that she will be calling [facility] to let them know she finally got the paperwork that they said they sent. Pt states it is paperwork to see if pt cans get funds for additional help in the home during the daytime. SW to remain available if needed. Asya Acosta JOURNEYMAN POWERHOUSE OPERATOR, CONTROLS PROJECT ENGINEER
--- NOTE | 2021-03-23 19:59 | PCM.CONS.GEN ---
Assessment & Plan Assessment/Plan (1) Acute UTI: (2) Diabetes mellitus type 2 in obese: (3) Complicated urinary tract infection: PLAN: begin acetic acid bladder irrigations daily, ok to start at discharge and I will provide patient with specific recipe/instructions for the solution (4) Kidney stone: PLAN: CT flank for evaluation of renal stones, possible bladder stones, question of any bowel inflammation around bladder etc (5) Urinary retention: PLAN: continue routine SPT care with regular SPT changes change back to extended release oxybutynin (6) Pressure ulcer of coccygeal region, stage 3: HPI Consult Data Date of Consult: 03/23/21 HPI Narrative HPI Narrative: ISELA CAMARENA, is a 75 F who has had a an indwelling suprapubic catheter 22 Turkish in size for many years. She has had a few different urologists over time. The suprapubic tube sits in the crease of her pannus. She likes at least 30 cc in the balloon so that it does not move and leak as much. The most recent SPT change was traumatic. Her SPT has been leaking intermittently for several years and draining brown-colored urine on and off for approximately 12 months if not longer. Recently her medications were changed from extended release oxybutynin to 5 mg 3 times daily immediate release. She does report dry mouth. She has also been managed recently with Betadine diluted bladder irrigation. She tries to hold the solution inside of her bladder for at least 30 minutes at a time. She has intermittent extremely painful bladder spasms and gross hematuria. 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 She has not had a cystoscopy in the last few years secondary to her health status. Her last cystoscopy revealed no evidence of bladder stones, ulcerations or tumors. She has had significant hematuria requiring transfusion in the last year. She has had a colonoscopy within the last 6 months that did not reveal evidence of fistula. 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 [facility] Medical History Anxiety and depression Candidal intertrigo Debility DM2 (diabetes mellitus, type 2) Essential hypertension History of atrial fibrillation HLD (hyperlipidemia) Morbid obesity VITA (obstructive sleep apnea) VITA (obstructive sleep apnea) Pressure ulcer of coccygeal region, stage 3 Severe sepsis Ulcer of abdomen wall with fat layer exposed Ulcer of left groin with fat layer exposed UTI (urinary tract infection) due to urinary indwelling catheter V tach Home Medications albuterol sulfate 2 puff INHALATION Q4H PRN PRN 10/30/18 [History Last Taken Unknown] pravastatin 20 mg PO QHS 12/17/18 [History Last Taken 08/06/20] venlafaxine 150 mg PO BID 07/02/19 [History Last Taken 08/07/20] potassium chloride 10 meq PO DAILYCM 08/18/19 [History Last Taken 08/06/20] aspirin 81 mg PO DAILY #[address] [facility] 08/13/20 [Rx Last Taken Unknown] methenamine hippurate 1 gm PO BID #0 08/13/20 [Rx Last Taken 08/07/20] famotidine 20 mg PO QHS 10/15/20 [History Last Taken Unknown] furosemide 20 mg PO BID 02/12/21 [History Last Taken Unknown] acetaminophen 1,000 mg PO Q6H PRN PRN tablet 02/18/21 [Rx Last Taken Unknown] rirzr-uvyu-[id number]-[id number]-uh-[id number] 1 packet PO BIDCM #60 packet 02/18/21 [Rx Last Taken Unknown] diphenhydramine HCl 25 mg PO TID PRN PRN capsule 02/18/21 [Rx Last Taken Unknown] metoprolol tartrate 25 mg PO DAILY #30 tablet 02/18/21 [Rx Last Taken Unknown] oxybutynin chloride 5 mg PO TIDCM #90 tablet 02/18/21 [Rx Last Taken Unknown] Allergy/AdvReac Type Severity Reaction Status Date / Time adhesive tape Allergy blisters Verified 02/08/21 16:29 Influenza Virus Vaccines Allergy shortness Verified 02/08/21 16:29 of breath/severe wheezing iron Allergy from IV Verified 02/08/21 16:29 form chest pressure and heart palpitations Sulfa (Sulfonamide Allergy Shortness Verified 02/08/21 16:29 Antibiotics) of breath meloxicam [From Mobic] AdvReac gi upset Verified 02/08/21 16:29 seasonal allergies Allergy Other Uncoded 02/08/21 16:29 Surgical History H/O: hysterectomy History of cholecystectomy History of tonsillectomy Hx of appendectomy Social History Smoking Status: Never smoker ROS Eyes Eyes: Reports systems reviewed and no addt'l complaints, except as documented ENT HEENT: Reports systems reviewed and no addt'l complaints, except as documented Cardiovascular Cardiovascular: Denies chest pain Respiratory/Chest Respiratory/Chest: Denies cough, inability to speak or shortness of breath at rest Gastrointestinal Gastrointestinal: Reports bloating Genitourinary Genitourinary: Reports systems reviewed and no addt'l complaints, except as documented Musculoskeletal Musculoskeletal: Reports other Details: bed bound, non-ambulatory Neurologic Neurologic: Denies abnormal speech Psychiatric Psychiatric: Denies cognitive impairment Physical Exam Const alert, oriented x3 and no apparent distress General Appearance: cooperative and comfortable Orientation / Consciousness: awake and oriented to person Nutritional Appearance: obese HEENT normocephalic and head/scalp atraumatic Eyes General Eye: normal appearance of both eyes Neck General: normal visual inspection and trachea midline Chest inspection of chest normal Chest: symmetrical chest wall rise Resp normal respiratory effort and normal air movement Effort and Inspection: able to speak in complete sentences and symmetric chest movement Cardio regular rate GI non-tender and non-distended Palpation: soft Narrative: SPT site without evidence of infection, no erythema. ABD in place with gauze due to urine leakage. SPT draining brown thick urine, almost stool like in appearance Bladder / Kidney Exam: catheter in place Skin Skin Narrative: No obvious lesions identified, full inspection not completed,perineum not visualized. Neuro oriented x3 and CN's II-XII intact bilaterally Psych mental status grossly normal, thought process normal, cooperative and affect normal Lab / Micro Data Result Diagrams: 03/23/21 06:15 03/23/21 06:15 Labs: Laboratory Results - last 24 hr 03/23/21 03/23/21 03/23/21 06:15 06:15 10:20 WBC 3.8 L RBC 2.71 L Hgb 6.7 L Hct 22.7 L MCV 83.8 MCH 24.7 L MCHC 29.5 L RDW Std Deviation 54.4 H RDW Coeff of Jessi 18.0 H Plt Count 436 MPV 8.5 Sodium 131 L Potassium 3.3 L Chloride 100 Carbon Dioxide 27.0 Anion Gap 4 L BUN 22 H Creatinine 1.47 H Estim Creat Clear Calc 31.43 Est GFR (MDRD) Af Amer 45 L Est GFR (MDRD) Non-Af 37 L BUN/Creatinine Ratio 15.0 Glucose 100 Calcium 7.8 L Blood Type A POSITIVE Antibody Screen NEGATIVE Crossmatch See Detail Micro: Microbiology 03/21/21 20:59 Urine Culture - Preliminary Urine Catheter - Catheter Escherichia coli Gram negative odin
--- NOTE | 2021-03-23 20:19 | CT_ITS ---
STUDY: CT ABDOMEN AND PELVIS WITHOUT CONTRAST REASON FOR EXAM: Female, 75 years old. renal calculus and infection RADIATION DOSAGE (If Supplied By Facility): CTDIvol = ( 32.98 ) mGy, DLP = ( 1730.49 ) mGycm TECHNIQUE: Transaxial images were obtained from the dome of the diaphragm to the symphysis pubis without oral contrast, and without intravenous contrast. Sagittal and coronal images were reconstructed. Individualized dose optimization techniques were used for this CT. COMPARISON: CT of abdomen and pelvis dated MARCH 12, 2013. CTA of the chest dated October 30, 2018 FINDINGS: There are chronic interstitial fibrotic changes of the lung bases. Minor pleural thickening seen in the lung bases. Unremarkable liver. Fatty infiltration of the liver noted as well as multiple punctate calcifications of the liver. There are surgical clips in the gallbladder fossa consistent with a prior cholecystectomy. There are multiple benign calcified granulomata of the spleen. Normal pancreas. Normal bilateral adrenal glands. Mild to moderate right hydronephrosis and hydroureter are present. A 2 mm stone is seen in the proximal one third right ureter. No visualized stones of the distal aspect of the right ureter. Emphysematous pyelonephritis of the left kidney is present with calyceal as well as UPJ small amounts of gas, mild to moderate parenchymal distortion and mild parenchymal loss as well as perinephric stranding and inflammation. Numerous stones are scattered throughout the left kidney, the largest measuring 4 cm. Mild to moderate left hydronephrosis is also present as well as hydroureter. A cluster of stones ranging in size from 2 to 4 mm are present in the distal aspect of the left ureter a few millimeters proximal to the UVJ. The bladder is collapsed around a Henry catheter, although a tiny amount of fluid is seen in the bladder lumen as well as several tiny stones. Small amount of gas seen in the bladder around the Henry catheter. Normal visualized stomach. Normal small intestine. There are multiple colonic diverticula consistent with diverticulosis. The appendix is visualized and appears normal. There is diffuse atherosclerotic calcification of the abdominal aorta, without a demonstrated aneurysm. Normal inferior vena cava. Normal retroperitoneum. There is absence of the uterus consistent with a prior hysterectomy. Normal abdominal wall. There are diffuse degenerative changes of the visualized lumbar spine. CT/Abdomen/Pelvis without Cont IMPRESSION: 1. Left kidney emphysematous pyelonephritis with multiple foci of gas within the renal calyces UPJ as well as partial parenchymal resorption/destruction and perinephric stranding. 2. Numerous stones of the left kidney region of the 4 cm in size 3. Mild to moderate bilateral hydronephrosis 4. Multiple clustered stones are present in the left distal ureter proximal to the UVJ. 5. Small stone seen in the right proximal ureter. N.B. : The above information has been verbally conveyed by Florencio Mayfield MD to Dr. Rebecca Zaavla MD, on 03/23/2021 23:16:42 (ET). Electronically Signed: Florencio Mayfield MD at 23:18 EDT , Service support ,
[2021-03-23] MEDS: Pravastatin 20 MG Tablet PO (22:03)
[2021-03-23] MEDS: Ceftriaxone 1 GM/50 ML BAG IV (22:06)
[2021-03-23] MEDS: 0.9% Saline Lock 10 ML Syringe IV (22:06)
--- NOTE | 2021-03-23 23:46 | PCM.PN.GU ---
Subjective Subjective Called by radiologist regarding stat reading on CT flank showing significant findings. She is not complaining of much aside from feeling sore and mild left flank pain. She understands the significance of the findings at this point. Objective Data Objective Data Vital Signs: Vital Signs Temp Pulse Resp BP Pulse Ox 98.2 F 88 16 113/60 97 03/23/21 20:09 03/23/21 20:09 03/23/21 20:09 03/23/21 20:09 03/23/21 20:09 Oxygen Flow Rate (L/min) 2 Oxygen Delivery Method Nasal Cannula Weight: 115.4 kg Body Mass Index (BMI) 41.1 Finger Stick Blood Glucose 150 Intake & Output: Intake and Output for Last 24 Hours 03/21/21 03/22/21 03/23/21 23:59 23:59 23:59 Intake Total 550 / 790 890 / 890 750 / 750 Output Total 1750 / 1750 1525 / 1525 Balance 550 / 515 -860 / -860 -775 / -775 Lab / Micro Data Result Diagrams: 03/23/21 06:15 03/23/21 06:15 Labs: Laboratory Results - last 24 hr 03/23/21 03/23/21 03/23/21 06:15 06:15 10:20 WBC 3.8 L RBC 2.71 L Hgb 6.7 L Hct 22.7 L MCV 83.8 MCH 24.7 L MCHC 29.5 L RDW Std Deviation 54.4 H RDW Coeff of Jessi 18.0 H Plt Count 436 MPV 8.5 Sodium 131 L Potassium 3.3 L Chloride 100 Carbon Dioxide 27.0 Anion Gap 4 L BUN 22 H Creatinine 1.47 H Estim Creat Clear Calc 31.43 Est GFR (MDRD) Af Amer 45 L Est GFR (MDRD) Non-Af 37 L BUN/Creatinine Ratio 15.0 Glucose 100 Calcium 7.8 L Blood Type A POSITIVE Antibody Screen NEGATIVE Crossmatch See Detail Micro: Microbiology 03/21/21 20:59 Urine Catheter - Catheter Urine Culture - Preliminary Escherichia coli Gram negative odin 03/21/21 18:40 Nasal Secretion SARS-CoV-2 Antigen (Rapid) - Final Radiography Diagnostic Testing: Radiology Impression Abdomen/Pelvis CT 03/23/21 20:19 IMPRESSION: 1. Left kidney emphysematous pyelonephritis with multiple foci of gas within the renal calyces UPJ as well as partial parenchymal resorption/destruction and perinephric stranding. 2. Numerous stones of the left kidney region of the 4 cm in size 3. Mild to moderate bilateral hydronephrosis 4. Multiple clustered stones are present in the left distal ureter proximal to the UVJ. 5. Small stone seen in the right proximal ureter. N.B. : The above information has been verbally conveyed by Florencio Mayfield MD to Dr. Rebecca Zavala MD, on 03/23/2021 23:16:42 (ET). Electronically Signed: Florencio Mayfield MD at 23:18 EDT , Service support , ADDENDUM: 03/23/212324 IMPRESSION: 1. Left kidney emphysematous pyelonephritis with multiple foci of gas within the renal calyces UPJ as well as partial parenchymal resorption/destruction and perinephric stranding. 2. Numerous stones of the left kidney region of the 4 cm in size 3. Mild to moderate bilateral hydronephrosis 4. Multiple clustered stones are present in the left distal ureter proximal to the UVJ. 5. Small stone seen in the right proximal ureter. N.B. : The above information has been verbally conveyed by Florencio Mayfield MD to Dr. Rebecca Zavala MD, on 03/23/2021 23:16:42 (ET). Electronically Signed: Florencio Mayfield MD at 23:18 EDT , Service support , Physical Exam Const alert, oriented x3 and no apparent distress General Appearance: cooperative and comfortable Exam Limitations: physical limitations Nutritional Appearance: obese HEENT normocephalic and head/scalp atraumatic Eyes General Eye: normal appearance of both eyes Neck supple General: normal visual inspection and trachea midline Chest inspection of chest normal Chest: symmetrical chest wall rise Resp normal respiratory effort and normal air movement Cardio regular rate and regular rhythm GI soft to palpation Narrative: suprapubic torrez with grossly purulent urine Skin Skin Narrative: wounds present, pressure ulcers Neuro oriented x3 and CN's II-XII intact bilaterally Psych mental status grossly normal Assessment & Plan Assessment/Plan (1) Emphysematous pyelonephritis of left kidney: PLAN: Given the significant CT findings, this patient needs more care than can currently be offered at [facility]. She needs decompression of both renal systems as soon as possible and a left nephrectomy if she becomes unstable...we do not have interventional radiology here for drainage. She will be a difficult and high risk surgical patient given her comorbidities and current medical status with anemia, diabetes, morbid obesity etc. She would be a difficult cystoscopic stent insertion as well given chronic catheter drainage and purulence of urine. There is high likelihood stents would not be able to be inserted, and would not provide adequate drainage if they were inserted. I have spoken with Dr.Joseph Dutta, hospitalist, and have given my recommendations for transfer of care. He will handle the logistics of transfer. Patient has just been given transfusion, I will order repeat labs if not done already. I have spoken with patient and informed her of the findings. She seems to understand the situation. (2) Renal calculus, bilateral: (3) Hydronephrosis due to obstruction of ureter:
[2021-03-24 00:45] LABS: Absolute Lymphocyte Count 0.79 X10^3/uL (0.83-4.51); Absolute Neutrophil Count 2.6 X10^3/uL (2.0-7.7); Basophil# 0.03 X10^3/uL; Basophil% 0.7 % (0-1); Eosinophil# 0.21 X10^3/uL; Eosinophils% 4.9 % (0-5); Hematocrit 27.2 % (37-47); Hemoglobin 8.2 g/dL (12.0-15.0); Lymphocyte # 0.79 X10^3/ul (0.83-4.51); Lymphocyte % 18.5 % (19-41); Mean Corp Hgb Conc 30.1 g/dL (32-36); Mean Corpuscular Hgb 25.2 pg (27.0-32.0); Mean Corpuscular Volume 83.7 fL (81-99); Mean Platelet Vol. 8.3 fl (6.2-12.0); Monocyte# 0.66 X10^3/uL; Monocyte% 15.5 % (0-10); NRBC Flagged by Analyzer 0 % (0-5); Neutrophil # 2.55 X10^3/uL (2.7-7.7); Neutrophil % 59.7 % (47-70); Platelet Count 410 K/mm3 (150-450); RBC Distribution Width CV 17.2 % (11.6-14.6); RBC Distribution Width SD 52.7 fl (35.1-43.9); Red Blood Count 3.25 M/mm3 (4.2-5.4); White Blood Count 4.3 K/mm3 (4.4-11.0)
[2021-03-24 01:03] LABS: Anion Gap 6 (5-15); BUN 23 mg/dL (7-18); Chloride 99 mmol/L (98-107); Creatinine, Serum 1.44 mg/dL (0.55-1.02); EST Glomerular Filtration Rate 38 mL/min (>60); Est Glom Filt Rate - Afr Amer 46 mL/min (>60); Estimated Creatinine Clearance 32.09 ml/min; Glucose 109 mg/dL (74-106); Potassium 3.7 mmol/L (3.5-5.1); Sodium Level 132 mmol/L (136-145)
[2021-03-24 02:15] VITALS: BP 131/76; PULSE 86; RESP 18; TEMP 36.8; O2SAT 100
--- NOTE | 2021-03-24 03:23 | PCM.DC.SUM ---
Providers Date of Admission: 03/21/21 Primary Care Physician: Dr. Colby Valenzuela, Consultations 03/21/21 22:44 Consult: Onc/Wound/developmental therapist Routine Comment: Reason for Consult:: chronic wound 03/22/21 01:30 Consult: Urology Routine Consulting Provider: Juan Ramon Andrews Reason for Consult: Problems with suprapubic catheter EMERGENT Consult: No MD Notified: Yes Date Notified:: 03/22/21 Time Notified: 06:56 Method of Notification: Page 03/23/21 16:49 Consult: Urology Routine Consulting Provider: Rebecca Zavala Reason for Consult: suprapubic cather leaking EMERGENT Consult: No MD Notified: Yes Date Notified:: 03/23/21 Time Notified: 16:49 Method of Notification: Verbal Reason For Visit: UTI Diagnosis Discharge Diagnosis (1) Emphysematous pyelonephritis of left kidney: Status: Acute Code(s): N12 - Tubulo-interstitial nephritis, not specified as acute or chronic (2) Renal calculus, bilateral: Status: Acute Code(s): N20.0 - Calculus of kidney (3) Hydronephrosis due to obstruction of ureter: Status: Acute Code(s): N13.1 - Hydronephrosis with ureteral stricture, not elsewhere classified Medications at Discharge Home Medications albuterol sulfate 2 puff INHALATION Q4H PRN PRN 10/30/18 pravastatin 20 mg PO QHS 12/17/18 venlafaxine 150 mg PO BID 07/02/19 potassium chloride 10 meq PO DAILYCM 08/18/19 aspirin 81 mg PO DAILY #0 [facility] 08/13/20 methenamine hippurate 1 gm PO BID #0 08/13/20 famotidine 20 mg PO QHS 10/15/20 furosemide 20 mg PO BID 02/12/21 acetaminophen 1,000 mg PO Q6H PRN PRN tablet 02/18/21 [id number] 1 packet PO BIDCM #60 packet 02/18/21 diphenhydramine HCl 25 mg PO TID PRN PRN capsule 02/18/21 metoprolol tartrate 25 mg PO DAILY #30 tablet 02/18/21 oxybutynin chloride 5 mg PO TIDCM #90 tablet 02/18/21 Hospital Course Summary of Care Provided Minutes Spent on Discharge: 35 Hospital Course: Patient presented with leaking around suprapubic catheter and weakness as well as hypoxia. Urine was abnormal. Patient was started on ceftriaxone based upon prior cultures. Urine culture was obtained. Urine culture showed E. coli. Sensitivity is pending. Also patient has history of chronic anemia. Her hemoglobin drainage presentation dropped to less than 7 and patient received packed red blood cells. Patient was kept on oxygen by nasal cannula to maintain appropriate oxygen saturation. Patient's urology saw patient and changed suprapubic catheter. However patient wanted second opinion on urology service. Another urology was subsequently consulted. Abdomen and pelvis CT was done. Abdomen pelvis CT findings showed left kidney emphysematous pyonephritis; numerous stones of the left kidney region of 4 cm in size; mild to moderate bilateral hydronephrosis; multiple clustered stones in the left distal ureter present to the UVJ. Small stone seen in the right proximal ureter. Urology recommended that patient be transferred to a tertiary institution as patient may need decompression of both renal system as soon as possible and left nephrectomy if patient becomes unstable. Case was discussed with [facility] Hospitalist. Patient was accepted for transfer. Physical Exam Narrative Alert and oriented x3 Nontraumatic; normocephalic Lung clear to auscultate Heart sounds S1-S2. No murmur, gallop or rubs. Abdomen bowel sounds present soft, nondistended. Tender lower abdomen. Suprapubic catheter in place. Extremity without edema cyanosis or clubbing. Of note patient denied examination of back secondary to fear of pain. ABG / Lab / Microbiology Data Result Diagrams: 03/24/21 00:40 03/24/21 00:40 Laboratory: Laboratory Results - last 24 hr 03/23/21 03/23/21 03/23/21 06:15 06:15 10:20 WBC 3.8 L RBC 2.71 L Hgb 6.7 L Hct 22.7 L MCV 83.8 MCH 24.7 L MCHC 29.5 L RDW Std Deviation 54.4 H RDW Coeff of Jessi 18.0 H Plt Count 436 MPV 8.5 Immature Gran % (Auto) Neut % (Auto) Lymph % (Auto) [place] % (Auto) Eos % (Auto) Baso % (Auto) Absolute Neuts (auto) Absolute Lymphs (auto) Nucleated RBC % Sodium 131 L Potassium 3.3 L Chloride 100 Carbon Dioxide 27.0 Anion Gap 4 L BUN 22 H Creatinine 1.47 H Estim Creat Clear Calc 31.43 Est GFR (MDRD) Af Amer 45 L Est GFR (MDRD) Non-Af 37 L BUN/Creatinine Ratio 15.0 Glucose 100 Calcium 7.8 L Blood Type A POSITIVE Antibody Screen NEGATIVE Crossmatch See Detail 03/24/21 03/24/21 00:40 00:40 WBC 4.3 L RBC 3.25 L Hgb 8.2 L Hct 27.2 L MCV 83.7 MCH 25.2 L MCHC 30.1 L RDW Std Deviation 52.7 H RDW Coeff of Jessi 17.2 H Plt Count 410 MPV 8.3 Immature Gran % (Auto) 0.700 Neut % (Auto) 59.7 Lymph % (Auto) 18.5 L [place] % (Auto) 15.5 H Eos % (Auto) 4.9 Baso % (Auto) 0.7 Absolute Neuts (auto) 2.6 Absolute Lymphs (auto) 0.79 L Nucleated RBC % 0 Sodium 132 L Potassium 3.7 Chloride 99 Carbon Dioxide 27.0 Anion Gap 6 BUN 23 H Creatinine 1.44 H Estim Creat Clear Calc 32.09 Est GFR (MDRD) Af Amer 46 L Est GFR (MDRD) Non-Af 38 L BUN/Creatinine Ratio 16.0 Glucose 109 H Calcium 8.0 L Blood Type Antibody Screen Crossmatch Microbiology: Microbiology 03/21/21 20:59 Urine Culture - Preliminary Urine Catheter - Catheter Escherichia coli Gram negative odin Microbiology 03/21/21 20:59 Urine Catheter - Catheter Urine Culture - Preliminary Escherichia coli Gram negative odin 03/21/21 18:40 Nasal Secretion SARS-CoV-2 Antigen (Rapid) - Final Radiography Diagnostic Testing: Radiology Impression Abdomen/Pelvis CT 03/23/21 20:19 IMPRESSION: 1. Left kidney emphysematous pyelonephritis with multiple foci of gas within the renal calyces UPJ as well as partial parenchymal resorption/destruction and perinephric stranding. 2. Numerous stones of the left kidney region of the 4 cm in size 3. Mild to moderate bilateral hydronephrosis 4. Multiple clustered stones are present in the left distal ureter proximal to the UVJ. 5. Small stone seen in the right proximal ureter. N.B. : The above information has been verbally conveyed by Florencio Mayfield MD to Dr. Rebecca Zavala MD, on 03/23/2021 23:16:42 (ET). Electronically Signed: Florencio Mayfield MD at 23:18 EDT , Service support , ADDENDUM: 03/23/21 2325 IMPRESSION: 1. Left kidney emphysematous pyelonephritis with multiple foci of gas within the renal calyces UPJ as well as partial parenchymal resorption/destruction and perinephric stranding. 2. Numerous stones of the left kidney region of the 4 cm in size 3. Mild to moderate bilateral hydronephrosis 4. Multiple clustered stones are present in the left distal ureter proximal to the UVJ. 5. Small stone seen in the right proximal ureter. N.B. : The above information has been verbally conveyed by Florencio Mayfield MD to Dr. Rebecca Zavala MD, on 03/23/2021 23:16:42 (ET). Electronically Signed: Florencio Mayfield MD at 23:18 EDT , Service support , Meaningful Use Info Meaningful Use Diagnoses (Choose all that apply): None applicable Discharge Plan Admission Admit Date/Time: 03/21/21 22:08 Attending Provider: Luís Collazo Primary Care Provider: Colby Valenzuela Consulting Providers: Juan Ramon Andrews ; Rebecca Zavala Discharge Orders/Prescriptions Prescriptions: No Action albuterol sulfate 1 INHALER inhaler 2 puff inhalation Q4H PRN PRN (Reason: Sob &/Or Wheezing) RF: 0 pravastatin 20 MG tablet 20 mg PO QHS RF: 0 venlafaxine 150 MG capsule 150 mg PO BID RF: 0 potassium chloride 10 MEQ tablet 10 meq PO DAILYCM RF: 0 methenamine hippurate 1 GM tablet 1 gm PO BID Qty: 0 RF: 0 aspirin 81 MG tablet,chewable 81 mg PO DAILY [facility] Qty: 0 RF: 0 famotidine 20 MG tablet 20 mg PO QHS RF: 0 furosemide 20 MG tablet 20 mg PO BID RF: 0 acetaminophen 500 MG tablet 1,000 mg PO Q6H PRN PRN (Reason: Pain Score 1-10) RF: 0 diphenhydramine HCl 25 MG capsule 25 mg PO TID PRN PRN (Reason: Itching) RF: 0 oxybutynin chloride 5 MG tablet 5 mg PO TIDCM Qty: 90 RF: 0 edlof-pewc-[id number]-[id number]-xp-too 1 PACKET packet 1 packet PO BIDCM Qty: 60 RF: 0 metoprolol tartrate 25 MG tablet 25 mg PO DAILY Qty: 30 RF: 0 Referrals / Follow Up: Colby Valenzuela DO [Primary Care Provider] - Visit Charges Inpatient E&M: 90996 Disch Hosp
[2021-03-24] MEDS: Nystatin Powder 15gm Bottle 1 APPLIC TOPICAL (05:10)
[2021-03-24 05:32] VITALS: BP 110/64; PULSE 89; RESP 18; TEMP 36.9; O2SAT 100
[2021-03-24 05:46] LABS: Absolute Lymphocyte Count 0.73 X10^3/uL (0.83-4.51); Basophil# 0.03 X10^3/uL; Basophil% 0.7 % (0-1); Eosinophil# 0.18 X10^3/uL; Eosinophils% 3.9 % (0-5); Hematocrit 28.8 % (37-47); Hemoglobin 8.6 g/dL (12.0-15.0); Lymphocyte # 0.73 X10^3/ul (0.83-4.51); Lymphocyte % 15.9 % (19-41); Mean Corp Hgb Conc 29.9 g/dL (32-36); Mean Corpuscular Hgb 25.1 pg (27.0-32.0); Mean Corpuscular Volume 84.2 fL (81-99); Mean Platelet Vol. 8.5 fl (6.2-12.0); NRBC Flagged by Analyzer 0 % (0-5); Neutrophil % 65.2 % (47-70); Platelet Count 455 K/mm3 (150-450); RBC Distribution Width CV 17.2 % (11.6-14.6); RBC Distribution Width SD 52.9 fl (35.1-43.9); Red Blood Count 3.42 M/mm3 (4.2-5.4); White Blood Count 4.6 K/mm3 (4.4-11.0)
--- NOTE | 2021-03-24 05:59 | NURSING ---
0535 Called report to RN at [facility]. Transport to arrive between 0600 and 0630. Will continue to monitor patient.
[2021-03-24 06:01] LABS: Anion Gap 4 (5-15); BUN 22 mg/dL (7-18); BUN/Creat Ratio 16.1 RATIO (10-20); Chloride 98 mmol/L (98-107); Creatinine, Serum 1.37 mg/dL (0.55-1.02); EST Glomerular Filtration Rate 40 mL/min (>60); Est Glom Filt Rate - Afr Amer 48 mL/min (>60); Estimated Creatinine Clearance 33.73 ml/min; Glucose 102 mg/dL (74-106); Potassium 3.4 mmol/L (3.5-5.1); Sodium Level 131 mmol/L (136-145)
--- NOTE | 2021-03-24 10:05 | CASEMGMT ---
TONI MARTINES NOTE: Miley @ [facility] notified that pt was transferred to [facility]. Call placed to Palliative Care and VM left to update them on pt transfer to [facility] as well. Sabina CHUA RN CM
== END 2021-03-24 07:00 | disposition short-term general hospital (02) | DRG 698 ==
LOC: ED 21:47 → MS3 22:14
PROVIDERS: Nurse Practitioner Family; Urology; Admitting Provider Hospitalist; Emergency Provider Emergency Medicine; PCP Family Medicine
DX: T83.511A Infection and inflammatory reaction due to indwelling urethral catheter, initial encounter (principal); L89.153 Pressure ulcer of sacral region, stage 3; N13.6 Pyonephrosis; E66.2 Morbid (severe) obesity with alveolar hypoventilation; Z68.41 Body mass index [BMI] 40.0-44.9, adult; T83.030A Leakage of cystostomy catheter, initial encounter; B96.20 Unspecified Escherichia coli [E. coli] as the cause of diseases classified elsewhere; E11.22 Type 2 diabetes mellitus with diabetic chronic kidney disease; I12.9 Hypertensive chronic kidney disease with stage 1 through stage 4 chronic kidney disease, or unspecified chronic kidney disease; N18.32 Chronic kidney disease, stage 3b; D63.1 Anemia in chronic kidney disease; F32.9 Major depressive disorder, single episode, unspecified; F41.9 Anxiety disorder, unspecified; R09.02 Hypoxemia; R53.81 Other malaise; Y84.6 Urinary catheterization as the cause of abnormal reaction of the patient, or of later complication, without mention of misadventure at the time of the procedure; Y73.8 Miscellaneous gastroenterology and urology devices associated with adverse incidents, not elsewhere classified; Z71.3 Dietary counseling and surveillance; Z90.89 Acquired absence of other organs; Z99.3 Dependence on wheelchair; Z79.82 Long term (current) use of aspirin; Z79.899 Other long term (current) drug therapy; Z87.440 Personal history of urinary (tract) infections
CPT/HCPCS: 36415; 71045; 74176; 80048; 80053; 81001; 83605; 84484; 85025; 85027; 86850; 86900; 86901; 86920; 86922; 87040; 87077; 87086; 87088; 87186; 87426; 93005; 97161; 97162; 97802; 99285; J7030; J7040; P9040; A4216

== ENCOUNTER 2021-04-05 20:09 | Emergency (ER) | payer MEDICARE, OTHER, SELFPAY ==
[2021-04-05 20:12] VITALS: BP 153/93; PULSE 99; RESP 16; TEMP 36.8; O2SAT 97; BMI 44.0
--- NOTE | 2021-04-05 20:18 | EX.ED.DYSGE1 ---
HPI History of Present Illness Chief Complaint: Complaint Informant: patient Onset/Context/Timing Onset: Hours Context: Sudden Onset Timing: Continuous Quality: Left nephrostomy tube was accidentally displaced Location: Left nephrostomy tube Current Severity: Not applicable Maximum Severity: Not applicable Worsened by: Nothing Relieved by: Nothing Associated Symptoms Associated Symptoms: No constitutional symptoms Narrative Narrative: Patient is a 75-year-old woman who was recently admitted to [facility], and had a nephrostomy tube placed. She states she was maneuvering around the long term and the nephrostomy tube got snagged and was displaced from the kidney. The entire apparatus was out. She denies fever, chills night sweats. She denies flank or abdominal pain. She denies nausea or vomiting. She has no symptoms. She is presently on IV antibiotics. She has a right subclavian line/midline in place. 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 Morbid obesity VITA (obstructive sleep apnea) VITA (obstructive sleep apnea) Pressure ulcer of coccygeal region, stage 3 Renal calculus, bilateral Severe sepsis Ulcer of abdomen wall with fat layer exposed Ulcer of left groin with fat layer exposed UTI (urinary tract infection) due to urinary indwelling catheter V tach Home Medications albuterol sulfate 2 puff INHALATION Q4H PRN PRN 10/30/18 [History Last Taken Unknown] pravastatin 20 mg PO QHS 12/17/18 [History Last Taken 08/06/20] venlafaxine 150 mg PO BID 07/02/19 [History Last Taken 08/07/20] potassium chloride 10 meq PO DAILYCM 08/18/19 [History Last Taken 08/06/20] aspirin 81 mg PO DAILY #0 [facility] 08/13/20 [Rx Last Taken Unknown] methenamine hippurate 1 gm PO BID #0 08/13/20 [Rx Last Taken 08/07/20] famotidine 20 mg PO QHS 10/15/20 [History Last Taken Unknown] furosemide 20 mg PO BID 02/12/21 [History Last Taken Unknown] acetaminophen 1,000 mg PO Q6H PRN PRN tablet 02/18/21 [Rx Last Taken Unknown] hnbfz-odxz-WoBNP-zjljnt-yo-ggd 1 packet PO BIDCM #60 packet 02/18/21 [Rx Last Taken Unknown] diphenhydramine HCl 25 mg PO TID PRN PRN capsule 02/18/21 [Rx Last Taken Unknown] metoprolol tartrate 25 mg PO DAILY #30 tablet 02/18/21 [Rx Last Taken Unknown] oxybutynin chloride 5 mg PO TIDCM #90 tablet 02/18/21 [Rx Last Taken Unknown] Allergy/AdvReac Type Severity Reaction Status Date / Time adhesive tape Allergy blisters Verified 02/08/21 16:29 Influenza Virus Vaccines Allergy shortness Verified 02/08/21 16:29 of breath/severe wheezing iron Allergy from IV Verified 02/08/21 16:29 form chest pressure and heart palpitations Sulfa (Sulfonamide Allergy Shortness Verified 02/08/21 16:29 Antibiotics) of breath meloxicam [From Mobic] AdvReac gi upset Verified 02/08/21 16:29 seasonal allergies Allergy Other Uncoded 02/08/21 16:29 Surgical History H/O: hysterectomy History of cholecystectomy History of tonsillectomy Hx of appendectomy Social History Smoking Status: Never smoker ROS ROS ED Constitutional Constitutional ED: Denies chills, fever(s), subjective or sweats Cardiovascular Cardiovascular: Denies chest pain or palpitations Respiratory/Chest Respiratory/Chest: Denies cough or dyspnea Gastrointestinal Gastrointestinal: Denies abdominal pain, diarrhea, nausea or vomiting Genitourinary Genitourinary ED: Reports other Details: Patient also has a suprapubic catheter in place. This was not displaced or dislodged. ; Denies dysuria, hematuria or urinary frequency Integumentary Denies rash EXAM Physical Exam Const Vital Signs: 04/05/21 20:12 Temperature 98.3 F Temperature Source Oral Pulse Rate 99 Respiratory Rate 16 Blood Pressure 153/93 H Blood Pressure Mean 113 Pulse Ox 97 Oxygen Delivery Method Room Air Positive well nourished, well developed and obese General Appearance ED: well developed and NAD Nutritional Appearance: obese Eyes PERRL and EOMs intact bilaterally General Eye ED: Negative for pale conjunctiva or scleral icterus Neck supple Chest Wall inspection of chest normal and palpation of chest normal Resp normal respiratory effort and clear to auscultation bilaterally Cardio regular rate, regular rhythm, S1 normal heart sound, S2 normal heart sound and no murmurs GI normal to inspection, nondistended, normoactive bowel sounds Bladder / Kidney Exam: other Suprapubic Henry is in place. Urine is straw-colored and clear. Nephrostomy site is closing with no drainage or evidence of infection. Neuro oriented x3, CN's II-XII intact bilaterally and no sensory deficits noted Sensorium / Orientation: alert Psych mental status grossly normal Skin Skin Narrative: Nephrostomy tube site is closing without evidence of infection MDM MDM MDM Narrative Medical decision making narrative: Since patient has no complaints and no symptoms she will be discharged back to the nursing facility. The nursing facility will need to contact the radiology department in the morning to discuss case with radiologist for time to have nephrostomy tubes replaced. Discharge Plan Triage Chief Complaint: Complaint ED Provider: Wagner Tineo Dx/Rx/DC Orders Clinical Impression: Displacement of nephrostomy catheter, initial encounter Instructions: ED Wound Care Prescriptions: No Action albuterol sulfate 1 INHALER inhaler 2 puff inhalation Q4H PRN PRN (Reason: Sob &/Or Wheezing) RF: 0 pravastatin 20 MG tablet 20 mg PO QHS RF: 0 venlafaxine 150 MG capsule 150 mg PO BID RF: 0 potassium chloride 10 MEQ tablet 10 meq PO DAILYCM RF: 0 methenamine hippurate 1 GM tablet 1 gm PO BID Qty: 0 RF: 0 aspirin 81 MG tablet,chewable 81 mg PO DAILY MDD heart health Qty: 0 RF: 0 famotidine 20 MG tablet 20 mg PO QHS RF: 0 furosemide 20 MG tablet 20 mg PO BID RF: 0 acetaminophen 500 MG tablet 1,000 mg PO Q6H PRN PRN (Reason: Pain Score 1-10) RF: 0 diphenhydramine HCl 25 MG capsule 25 mg PO TID PRN PRN (Reason: Itching) RF: 0 oxybutynin chloride 5 MG tablet 5 mg PO TIDCM Qty: 90 RF: 0 pavgn-iigv-MlRAC-jghifh-no-gia 1 PACKET packet 1 packet PO BIDCM Qty: 60 RF: 0 metoprolol tartrate 25 MG tablet 25 mg PO DAILY Qty: 30 RF: 0 Primary Care Provider: Colby Valenzuela Referrals: Colby Valenzuela DO [Primary Care Provider] - As Needed Activity Restrictions/Additional Instructions: Your nurse will need to contact the department of radiology in the morning to discuss placement of new nephrostomy tube by Dr. Ortiz. Disposition Disposition: [facility] Discharge Location: [facility]
== END 2021-04-05 22:21 ==
LOC: ED 20:38
PROVIDERS: Emergency Provider Emergency Medicine; PCP Family Medicine
DX: T83.022A Displacement of nephrostomy catheter, initial encounter (principal); I10 Essential (primary) hypertension; E66.01 Morbid (severe) obesity due to excess calories; Z68.41 Body mass index [BMI] 40.0-44.9, adult; Z79.82 Long term (current) use of aspirin; Z79.899 Other long term (current) drug therapy
CPT/HCPCS: 99284

== ENCOUNTER 2021-04-16 10:47 | Emergency (ER) | payer MEDICARE, OTHER, SELFPAY ==
[2021-04-16] VITALS (9 sets, daily range): BP systolic 108–213; BP diastolic 59–186; PULSE 70–78; RESP 12–20; TEMP 36.6–36.9; O2SAT 92–100; BMI 44.6
--- NOTE | 2021-04-16 10:49 | EKG12_ITS ---
Test Reason : Blood Pressure : / mmHG Vent. Rate : 074 BPM Atrial Rate : 071 BPM P-R Int : 000 ms QRS Dur : 086 ms QT Int : 412 ms P-R-T Axes : 000 035 081 degrees QTc Int : 457 ms Undetermined rhythm : Consider Ectopic Atrial Rhythm Low voltage QRS Inferior infarct , age undetermined Cannot rule out Anterior infarct , age undetermined Abnormal ECG Confirmed by SEBASTIÁN THOMPSON, KENNEDY ([id number]), slot editor BROOKS WIGGINS ([id number]) on 04/20/2021 9:59:50 AM Referred By: KAYLENE Confirmed By:KENNEDY LOWERY MD
--- NOTE | 2021-04-16 10:50 | EDS_ITS ---
HPI History of Present Illness Chief Complaint: Hypotension Informant: patient and EMS Onset/Context/Timing Onset: Today Timing: Intermittent Current Severity: Gone Maximum Severity: Mild Associated Symptoms Associated Symptoms: Denies. Narrative Narrative: 75-year-old female with a complicated past medical history. 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 She currently is at an extended care facility. She has a right subclavian triple- lumen catheter central line, nephrostomy tube, ureteral stent and a Henry catheter. Today reportedly had a low blood pressure and was sent in the emergency department. She denies any symptoms. She states she has not slept well recently and was sleeping more than normal to catch up on her sleep. She denies any fever. She denies any chest pain, shortness of breath, abdominal pain nor any nausea, vomiting or diarrhea. 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 Morbid obesity VITA (obstructive sleep apnea) VITA (obstructive sleep apnea) Pressure ulcer of coccygeal region, stage 3 Renal calculus, bilateral Severe sepsis Ulcer of abdomen wall with fat layer exposed Ulcer of left groin with fat layer exposed UTI (urinary tract infection) due to urinary indwelling catheter V tach Home Medications pravastatin 20 mg PO QHS 12/17/18 [History Last Taken 08/06/20] venlafaxine 150 mg PO BID 07/02/19 [History Last Taken 08/07/20] potassium chloride 10 meq PO DAILYCM 08/18/19 [History Last Taken 08/06/20] aspirin 81 mg PO DAILY #0 [facility] 08/13/20 [Rx Last Taken Unknown] methenamine hippurate 1 gm PO BID #0 08/13/20 [Rx Last Taken 08/07/20] famotidine 20 mg PO QHS 10/15/20 [History Last Taken Unknown] furosemide 20 mg PO BID 02/12/21 [History Last Taken Unknown] acetaminophen 1,000 mg PO Q6H PRN PRN tablet 02/18/21 [Rx Last Taken Unknown] baclofen 10 mg PO DAILY 04/16/21 [History Last Taken Unknown] baclofen 20 mg PO QHS 04/16/21 [History Last Taken Unknown] bisacodyl 10 mg [place] DAILY PRN 04/16/21 [History Last Taken Unknown] diphenhydramine HCl 25 mg PO BID PRN PRN 04/16/21 [History Last Taken Unknown] ertapenem 1 g IM DAILY 04/16/21 [History Last Taken Unknown] gabapentin 600 mg PO BID 04/16/21 [History Last Taken Unknown] lisinopril 10 mg PO DAILY 04/16/21 [History Last Taken Unknown] magnesium hydroxide [Milk of Magnesia] 30 ml PO DAILY PRN 04/16/21 [History Last Taken Unknown] methadone 2.5 mg PO QHS 04/16/21 [History Last Taken Unknown] miconazole nitrate 1 applic TOPICAL BID 04/16/21 [History Last Taken Unknown] minerals [Multi Minerals] 1 tab PO DAILY 04/16/21 [History Last Taken Unknown] omeprazole 20 mg PO DAILY 04/16/21 [History Last Taken Unknown] oxybutynin chloride 15 mg PO DAILY 04/16/21 [History Last Taken Unknown] polyethylene glycol 1 ea MISCELLANEOUS DAILY 04/16/21 [History Last Taken Unknown] sodium phosphates [Fleet Enema] 118 ml AZ DAILY PRN PRN 04/16/21 [History Last Taken Unknown] Allergy/AdvReac Type Severity Reaction Status Date / Time adhesive tape Allergy blisters Verified 04/16/21 12:14 Influenza Virus Vaccines Allergy shortness Verified 04/16/21 12:14 of breath/severe wheezing iron Allergy from IV Verified 04/16/21 12:14 form chest pressure and heart palpitations Sulfa (Sulfonamide Allergy Shortness Verified 04/16/21 12:14 Antibiotics) of breath meloxicam [From Mobic] AdvReac gi upset Verified 04/16/21 12:14 seasonal allergies Allergy Other Uncoded 04/16/21 12:14 Surgical History H/O: hysterectomy History of cholecystectomy History of tonsillectomy Hx of appendectomy Social History Smoking Status: Never smoker ROS ROS ED ROS Narrative Patient denies any current symptoms. Review of Systems ROS Unobtainable: Denies due to encephalopathy Constitutional Constitutional ED: Denies fever(s) Eyes Eyes: Denies change in vision ENT ENT ED: Denies ear pain or sore throat Cardiovascular Cardiovascular: Denies chest pain Respiratory/Chest Respiratory/Chest: Denies dyspnea Gastrointestinal Gastrointestinal: Denies abdominal pain, diarrhea, nausea or vomiting Genitourinary Genitourinary ED: Denies dysuria Musculoskeletal Musculoskeletal: Denies myalgias Integumentary Denies rash Neurologic Neurologic: Denies headache(s) Psychiatric Psychiatric: Denies depression Endocrine Endocrinology: Denies polyuria Allergic/Immunologic Allergic/Immunologic ED: Denies urticaria EXAM Physical Exam Narrative Exam Narrative: Older female no acute distress. Her current blood pressure is 160/133. That will be rechecked. She was actually sent in for low blood pressure. HEENT exam mildly dry mucous membranes. Neck nontender. Lungs are clear bilaterally. Heart regular rhythm no murmur. Abdomen obese but soft and nontender normal bowel sounds no peritoneal signs. Moving all 4 extremities. No edema. She is awake and alert answering questions and following commands. Const Vital Signs: 04/16/21 10:48 04/16/21 11:00 04/16/21 11:03 Temperature 98.2 F 98.3 F Temperature Source Oral Oral Pulse Rate 74 Respiratory Rate 16 Respiratory Effort Respiratory Pattern Blood Pressure 213/186 H Blood Pressure Mean 195 Pulse Ox 92 Oxygen Delivery Method Venturi Mask Oxygen Flow Rate (L/min) 2 04/16/21 11:04 04/16/21 12:21 04/16/21 12:27 Temperature 98.4 F 97.8 F Temperature Source Oral Oral Pulse Rate 77 78 Respiratory Rate 20 H 18 Respiratory Effort Normal Non-Labored Respiratory Pattern Normal Blood Pressure 208/182 H 122/67 H Blood Pressure Mean 190 85 Pulse Ox 96 95 Oxygen Delivery Method Nasal Cannula Nasal Cannula Oxygen Flow Rate (L/min) 2 2 Positive well nourished and well developed General Appearance ED: well developed HEENT Reports dry mucous membranes Negative for trauma or tenderness Mouth ED: Yes dry mucous membranes Mouth: dry mucous membranes Eyes PERRL and EOMs intact bilaterally Neck no lymphadenopathy and supple Chest Wall inspection of chest normal Resp normal respiratory effort and clear to auscultation bilaterally Cardio regular rate, regular rhythm, S1 normal heart sound and no murmurs GI normal to inspection, nondistended, normoactive bowel sounds, non-tender and non -distended Inspection: Negative for abdominal distention Auscultation: normoactive bowel sounds Palpation: soft Back/Spine no CVA tenderness Extremity normal to inspection Neuro oriented x3 and CN's II-XII intact bilaterally Sensorium / Orientation: alert; Negative for lethargic or stuporous Motor Exam: strength 5/5 throughout Psych mental status grossly normal Skin no rashes or lesions noted MDM MDM MDM Narrative Medical decision making narrative: Older female with complicated past medical history with recent hospitalization. Sent in for transient hypotension. Currently has no complaints. Has a benign exam. Currently she is hypertensive. She is on IV antibiotics at this time. She will undergo a septic work-up. Clinically she looks well at this time. Repeat exam the patient is doing well at noon. Exam unchanged. She is resting comfortably with family member at the bedside. Labs are basically her baseline no significant acute changes. Repeat exam patient is doing well at 12:50 PM. She will be discharged home. Her vital signs of been stable. Lab Data Lab results narrative: CBC unremarkable white count of 3. Hemoglobin 8.3 which is her baseline chronic anemia. Chemistries unremarkable chronic renal insufficiency with a BUN of 38 creatinine 1.4. Normal gap. Liver enzymes normal. Read by myself shows no acute abnormality. Right-sided central line. Lactic acid is normal at 1.0. Urinalysis shows 25-50 white cells. No nitrites. She is currently being treated for UTI and on IV antibiotics. Labs: Laboratory Results - last 24 hr 04/16/21 04/16/21 04/16/21 11:05 11:05 11:05 WBC 3.6 L RBC 3.11 L Hgb 8.3 L Hct 28.2 L MCV 90.7 MCH 26.7 L MCHC 29.4 L RDW Std Deviation 68.0 H RDW Coeff of Jessi 20.5 H Plt Count 300 MPV 9.2 Immature Gran % (Auto) 0.300 Neut % (Auto) 53.1 Lymph % (Auto) 24.0 [place] % (Auto) 13.1 H Eos % (Auto) 8.4 H Baso % (Auto) 1.1 H Absolute Neuts (auto) 1.9 L Absolute Lymphs (auto) 0.86 Nucleated RBC % 0 Hypochromasia 1+ Anisocytosis 1+ PT 14.6 INR 1.2 APTT 31.5 Sodium 134 L Potassium 3.4 L Chloride 96 L Carbon Dioxide 32.0 Anion Gap 6 BUN 38 H Creatinine 1.40 H Estim Creat Clear Calc 31.72 Est GFR (MDRD) Af Amer 47 L Est GFR (MDRD) Non-Af 39 L BUN/Creatinine Ratio 27.1 H Glucose 85 Lactic Acid Calcium 7.8 L Total Bilirubin 0.30 AST 18 ALT 11 L Alkaline Phosphatase 116 Total Protein 7.1 Albumin 1.6 L Globulin 5.5 H Albumin/Globulin Ratio 0.3 L Urine Color Urine Clarity Urine pH Ur Specific Sasser Urine Protein Urine Glucose (UA) Urine Ketones Urine Occult Blood Urine Nitrite Urine Bilirubin Urine Urobilinogen Ur Leukocyte Esterase Urine RBC Urine WBC Ur Squamous Epith Cells Urine Bacteria Urine Mucus Urine Yeast 04/16/21 04/16/21 11:05 12:10 WBC RBC Hgb Hct MCV MCH MCHC RDW Std Deviation RDW Coeff of Jessi Plt Count MPV Immature Gran % (Auto) Neut % (Auto) Lymph % (Auto) [place] % (Auto) Eos % (Auto) Baso % (Auto) Absolute Neuts (auto) Absolute Lymphs (auto) Nucleated RBC % Hypochromasia Anisocytosis PT INR APTT Sodium Potassium Chloride Carbon Dioxide Anion Gap BUN Creatinine Estim Creat Clear Calc Est GFR (MDRD) Af Amer Est GFR (MDRD) Non-Af BUN/Creatinine Ratio Glucose Lactic Acid 1.0 Calcium Total Bilirubin AST ALT Alkaline Phosphatase Total Protein Albumin Globulin Albumin/Globulin Ratio Urine Color Yellow Urine Clarity Sl. Cloudy Urine pH 6.0 Ur Specific Sasser 1.010 Urine Protein 15 H Urine Glucose (UA) Normal Urine Ketones Negative Urine Occult Blood 50 H Urine Nitrite Negative Urine Bilirubin Negative Urine Urobilinogen Normal Ur Leukocyte Esterase 500 H Urine RBC 0-5 SEEN Urine WBC 25-50 SEEN Ur Squamous Epith Cells 0-5 SEEN Urine Bacteria 1+ Urine Mucus 0 SEEN Urine Yeast 2+ Radiography Chest X-Ray - ED: 1 View, Read by ED Physician, Normal, Heart, Lungs, Mediastinum, Bony Structures, No Acute Disease and Chronic Changes Diagnostic Testing: Radiology Impression Chest X-Ray 04/16/21 11:25 IMPRESSION: No acute abnormality is seen. Electronically Signed: Joaquin Douglass MD at 12:07 EDT , Service support , Right-sided triple-lumen catheter. EKG Initial EKG: Interpretation: No Acute Injury Pattern and Atrial Fibrillation Comments: A. fib with low voltage with a rate of 74. Discharge Plan Triage Chief Complaint: Hypotension ED Provider: Evin Price Dx/Rx/DC Orders Clinical Impression: Transient hypotension Prescriptions: No Action pravastatin 20 MG tablet 20 mg PO QHS RF: 0 venlafaxine 150 MG capsule 150 mg PO DAILY RF: 0 potassium chloride 10 MEQ tablet 10 meq PO DAILYCM RF: 0 methenamine hippurate 1 GM tablet 1 gm PO BID Qty: 0 RF: 0 aspirin 81 MG tablet,chewable 81 mg PO DAILY MDD heart health Qty: 0 RF: 0 famotidine 20 MG tablet 20 mg PO QHS RF: 0 furosemide 20 MG tablet 20 mg PO BID RF: 0 acetaminophen 500 MG tablet 1,000 mg PO Q6H PRN PRN (Reason: Pain Score 1-10) RF: 0 gabapentin 600 mg Tablet 600 mg PO BID RF: 0 miconazole nitrate 2 % Powder 1 applic TOPICAL BID RF: 0 baclofen 20 mg Tablet 20 mg PO QHS RF: 0 magnesium hydroxide [Milk of Magnesia] 400 mg/5 mL Suspension 30 ml PO DAILY PRN (Reason: Constipation) RF: 0 baclofen 10 mg Tablet 10 mg PO DAILY RF: 0 bisacodyl 10 mg Suppository 10 mg [place] DAILY PRN (Reason: Constipation) RF: 0 lisinopril 10 mg Tablet 10 mg PO DAILY RF: 0 Fleet Enema 19-7 gram/118 mL Enema 118 ml [place] DAILY PRN PRN (Reason: Constipation) RF: 0 omeprazole 20 mg Capsule,Delayed Release(Dr/Ec) 20 mg PO DAILY RF: 0 methadone 5 mg Tablet 2.5 mg PO QHS RF: 0 Multi Minerals Tablet 1 tab PO DAILY RF: 0 ertapenem 1 gram Recon Soln 1 g IM DAILY RF: 0 polyethylene glycol Powder 1 ea MISCELLANEOUS DAILY RF: 0 diphenhydramine HCl 25 MG capsule 25 mg PO BID PRN PRN (Reason: Itching) RF: 0 oxybutynin chloride 5 MG tablet 15 mg PO DAILY RF: 0 Primary Care Provider: Colby Valenzuela Referrals: Colby Valenzuela DO [Primary Care Provider] - 3-5 Days Activity Restrictions/Additional Instructions: Follow-up with your physician early next week. Return emergency department if feeling worse. Your work-up today was basically unremarkable. Disposition Disposition: Home, self care
[2021-04-16 11:22] LABS: Absolute Lymphocyte Count 0.86 X10^3/uL (0.83-4.51); Absolute Neutrophil Count 1.9 X10^3/uL (2.0-7.7); Basophil# 0.04 X10^3/uL; Basophil% 1.1 % (0-1); Eosinophils% 8.4 % (0-5); Hematocrit 28.2 % (37-47); Hemoglobin 8.3 g/dL (12.0-15.0); Lymphocyte # 0.86 X10^3/ul (0.83-4.51); Mean Corp Hgb Conc 29.4 g/dL (32-36); Mean Corpuscular Hgb 26.7 pg (27.0-32.0); Mean Corpuscular Volume 90.7 fL (81-99); Mean Platelet Vol. 9.2 fl (6.2-12.0); Monocyte# 0.47 X10^3/uL; Monocyte% 13.1 % (0-10); NRBC Flagged by Analyzer 0 % (0-5); Neutrophil % 53.1 % (47-70); POSITIVE MORPHOLOGY YES; Platelet Count 300 K/mm3 (150-450); RBC Distribution Width CV 20.5 % (11.6-14.6); Red Blood Count 3.11 M/mm3 (4.2-5.4); White Blood Count 3.6 K/mm3 (4.4-11.0)
[2021-04-16 11:23] LABS: Differential Indicated SCAN CRITERIA MET
--- NOTE | 2021-04-16 11:25 | RAD_ITS ---
STUDY: X-RAY CHEST REASON FOR EXAM: Female, 75 years old. Hypotension TECHNIQUE: Single AP portable view of the chest. COMPARISON: Comparison is made with prior study of 03/21/2021. FINDINGS: EKG electrodes are seen. And right-sided portacatheter is seen with the tip at the junction of the superior vena cava and right atrium. The lungs are clear and expanded. There is no demonstrated pleural abnormality. Normal size heart. Normal mediastinum and peace. Normal visualized pulmonary arteries. There is atherosclerotic calcification of the aortic arch with tortuosity. There are degenerative changes of the visualized thoracic spine. Normal visualized ribs, clavicles, and shoulders. There is no demonstrated abnormality of the visualized soft tissue structures of the upper abdomen. RAD/Chest 1 View (Portable) IMPRESSION: No acute abnormality is seen. Electronically Signed: Joaquin Douglass MD at 12:07 EDT , Service support ,
[2021-04-16 11:31] LABS: International Normalized Ratio 1.2; Prothrombin Time (Protime)PT. 14.6 SECONDS (11.7-14.9)
[2021-04-16 11:32] LABS: Partial Thromboplast Time 31.5 Seconds (24.1-36.2)
[2021-04-16 11:36] LABS: ALB/GLOB Ratio 0.3 RATIO (0.9-2.4); AST(SGOT) 18 U/L (15-37); Alanine Aminotransfer ALT/SGPT 11 U/L (13-56); Albumin, Serum 1.6 g/dL (3.2-5.0); Alkaline Phosphatase 116 U/L (45-117); Anion Gap 6 (5-15); BUN 38 mg/dL (7-18); BUN/Creat Ratio 27.1 RATIO (10-20); Calcium,Total 7.8 mg/dL (8.5-10.1); Chloride 96 mmol/L (98-107); EST Glomerular Filtration Rate 39 mL/min (>60); Est Glom Filt Rate - Afr Amer 47 mL/min (>60); Estimated Creatinine Clearance 31.72 ml/min; Globulin 5.5 g/dL (2.2-4.2); Glucose 85 mg/dL (74-106); Potassium 3.4 mmol/L (3.5-5.1); Protein, Total 7.1 g/dL (6.4-8.2); Sodium Level 134 mmol/L (136-145)
[2021-04-16 11:49] LABS: Anisocytosis 1+; Hypochromasia 1+
[2021-04-16 12:18] LABS: Mucous, Urine 0 SEEN /hpf (<or=2+)
[2021-04-16 12:27] LABS: Color, Urine Yellow (Yellow); Glucose, Dipstick Normal (Normal); Ketone-Dipstick Negative (Negative); Leukocyte Esterase-Dipstick 500 /ul (Negative); Nitrite-Dipstick Negative (Negative); Occult Blood-Urine 50 /ul (Negative); Protein-Dipstick 15 mg/dl (Negative); Urine Bilirubin Dipstick Negative (Negative); Urine Clarity Sl. Cloudy (Clear); Urine Urobilinogen Normal (Normal)
[2021-04-16 12:40] LABS: Red Blood Cells-Urine 0-5 SEEN /hpf (0-5); White Blood Cells 25-50 SEEN /hpf (0-5)
[2021-04-16 12:41] LABS: Bacteria 1+ /hpf (None Seen); Squamous Epithelial Cells - UA 0-5 SEEN /hpf (5-10); Yeast-Urine 2+ /hpf (None Seen)
[2021-04-16] MEDS: 0.9% Normal Saline 1,000 ML 999 ML IV (13:08)
== END 2021-04-16 17:31 | disposition home or self-care (01) ==
PROVIDERS: Emergency Provider Emergency Medicine; PCP Family Medicine
DX: I95.9 Hypotension, unspecified (principal); E66.01 Morbid (severe) obesity due to excess calories; E78.5 Hyperlipidemia, unspecified; I10 Essential (primary) hypertension; I48.91 Unspecified atrial fibrillation; Z87.440 Personal history of urinary (tract) infections; Z79.899 Other long term (current) drug therapy; Z79.82 Long term (current) use of aspirin
CPT/HCPCS: 36592; 71045; 80053; 81001; 83605; 85025; 85610; 85730; 87040; 87077; 87086; 87088; 87186; 93005; 96360; 96361; 99284; J7030; A4216

== ENCOUNTER 2021-04-27 01:30 | Emergency (ER) | payer MEDICARE, OTHER, SELFPAY ==
[2021-04-16 10:48] VITALS: BMI 44.6
[2021-04-27] VITALS (7 sets, daily range): BP systolic 87–109; BP diastolic 49–83; PULSE 71–88; RESP 14–20; TEMP 36.4–37; O2SAT 93–98; BMI 43.6
[2021-04-27 01:41] LABS: Bedside Glucose 70 mg/dL (70-110)
[2021-04-27 02:16] LABS: Absolute Lymphocyte Count 1.18 X10^3/uL (0.83-4.51); Absolute Neutrophil Count 5.2 X10^3/uL (2.0-7.7); Basophil# 0.05 X10^3/uL; Basophil% 0.6 % (0-1); Eosinophil# 0.72 X10^3/uL; Eosinophils% 9.2 % (0-5); Hematocrit 31.2 % (37-47); Hemoglobin 9.4 g/dL (12.0-15.0); Lymphocyte # 1.18 X10^3/ul (0.83-4.51); Lymphocyte % 15.1 % (19-41); Mean Corp Hgb Conc 30.1 g/dL (32-36); Mean Corpuscular Hgb 27.1 pg (27.0-32.0); Mean Corpuscular Volume 89.9 fL (81-99); Mean Platelet Vol. 9.3 fl (6.2-12.0); Monocyte# 0.66 X10^3/uL; Monocyte% 8.5 % (0-10); NRBC Flagged by Analyzer 0 % (0-5); Neutrophil # 5.17 X10^3/uL (2.7-7.7); Neutrophil % 66.3 % (47-70); Platelet Count 343 K/mm3 (150-450); RBC Distribution Width CV 19.1 % (11.6-14.6); RBC Distribution Width SD 63.1 fl (35.1-43.9); Red Blood Count 3.47 M/mm3 (4.2-5.4); White Blood Count 7.8 K/mm3 (4.4-11.0)
--- NOTE | 2021-04-27 02:18 | RAD_ITS ---
STUDY: X-RAY - ABDOMEN/PELVIS REASON FOR EXAM: Female, 75 years old. Eval nephrostomy tube for migration TECHNIQUE: Single AP view of the abdomen / pelvis. COMPARISON: 02/13/2021. FINDINGS: Normal visualized lung bases. There is a right-sided ureteral stent with the distal pigtail in the expected region of the urinary bladder. The upper pigtail projects at the approximate L4-L5 level eccentric location indeterminate in relation to the right renal pelvis. There is a left-sided nephrostomy tube in place with the pigtail in the region of multiple calcifications present to represent left kidney with exact location in relation to the renal pelvis or left kidney indeterminate. There is diffuse nonspecific increase gas pattern suggestive of ileus. There are several calcifications in the pelvis suggested to represent bladder calculi. Normal soft tissue structures. 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 Likely calcified granulomas within the left buttock region. RAD/Abdomen Single View IMPRESSION: Right-sided ureteral stent as described. Left-sided nephrostomy tube. The exact location of the left-sided nephrostomy tube is difficult to assess at the level of the pigtail. If indicated, this can be assessed with injection of contrast into the nephrostomy tube. Electronically Signed: Elicia Murphy MD at 2:56 EDT , Service support ,
--- NOTE | 2021-04-27 02:25 | EDS_ITS ---
HPI History of Present Illness Chief Complaint: Hypoglycemia Informant: patient Narrative Narrative: Patient is a 75-year-old female who presents to the emergency department from [facility] for hypoglycemia. She is found to have a blood sugar of 47. She was given glucagon and oral dextrose. Upon arrival to the emergency department she has no complaints. On a side note patient noticed pus in her left nephrostomy bag starting yesterday. The nephrostomy tube was placed approximately 1 month ago at [facility]. She is postop follow-up tomorrow. Patient denies any back pain, abdominal pain. She has not had any fevers or chills. She has any chest pain or shortness of breath. She does have a suprapubic catheter. 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 Morbid obesity VITA (obstructive sleep apnea) VITA (obstructive sleep apnea) Pressure ulcer of coccygeal region, stage 3 Renal calculus, bilateral Severe sepsis Ulcer of abdomen wall with fat layer exposed Ulcer of left groin with fat layer exposed UTI (urinary tract infection) due to urinary indwelling catheter V tach Home Medications pravastatin 20 mg PO QHS 12/17/18 [History Last Taken 08/06/20] venlafaxine 150 mg PO DAILY 07/02/19 [History Last Taken 08/07/20] potassium chloride 10 meq PO DAILYCM 08/18/19 [History Last Taken 08/06/20] aspirin 81 mg PO DAILY #0 [facility] 08/13/20 [Rx Last Taken Unknown] methenamine hippurate 1 gm PO BID #0 08/13/20 [Rx Last Taken 08/07/20] famotidine 20 mg PO QHS 10/15/20 [History Last Taken Unknown] furosemide 20 mg PO BID 02/12/21 [History Last Taken Unknown] acetaminophen 1,000 mg PO Q6H PRN PRN tablet 02/18/21 [Rx Last Taken Unknown] baclofen 10 mg PO DAILY 04/16/21 [History Last Taken Unknown] baclofen 20 mg PO QHS 04/16/21 [History Last Taken Unknown] bisacodyl 10 mg FL DAILY PRN 04/16/21 [History Last Taken Unknown] diphenhydramine HCl 25 mg PO BID PRN PRN 04/16/21 [History Last Taken Unknown] ertapenem 1 g IM DAILY 04/16/21 [History Last Taken Unknown] gabapentin 600 mg PO BID 04/16/21 [History Last Taken Unknown] lisinopril 10 mg PO DAILY 04/16/21 [History Last Taken Unknown] magnesium hydroxide [Milk of Magnesia] 30 ml PO DAILY PRN 04/16/21 [History Last Taken Unknown] methadone 2.5 mg PO QHS 04/16/21 [History Last Taken Unknown] miconazole nitrate 1 applic TOPICAL BID 04/16/21 [History Last Taken Unknown] minerals [Multi Minerals] 1 tab PO DAILY 04/16/21 [History Last Taken Unknown] omeprazole 20 mg PO DAILY 04/16/21 [History Last Taken Unknown] oxybutynin chloride 15 mg PO DAILY 04/16/21 [History Last Taken Unknown] polyethylene glycol 1 ea MISCELLANEOUS DAILY 04/16/21 [History Last Taken Unknown] sodium phosphates [Fleet Enema] 118 ml FL DAILY PRN PRN 04/16/21 [History Last Taken Unknown] Allergy/AdvReac Type Severity Reaction Status Date / Time adhesive tape Allergy blisters Verified 04/27/21 01:35 Influenza Virus Vaccines Allergy shortness Verified 04/27/21 01:35 of breath/severe wheezing iron Allergy from IV Verified 04/27/21 01:35 form chest pressure and heart palpitations Sulfa (Sulfonamide Allergy Shortness Verified 04/27/21 01:35 Antibiotics) of breath meloxicam [From Mobic] AdvReac gi upset Verified 04/27/21 01:35 seasonal allergies Allergy Other Uncoded 04/27/21 01:35 Surgical History H/O: hysterectomy History of cholecystectomy History of tonsillectomy Hx of appendectomy Social History Smoking Status: Never smoker ROS ROS ED Constitutional Constitutional ED: Denies chills or fever(s) Eyes Eyes: Denies change in vision ENT ENT ED: Denies epistaxis or rhinorrhea Cardiovascular Cardiovascular: Denies chest pain or palpitations Respiratory/Chest Respiratory/Chest: Denies cough, dyspnea or dyspnea on exertion Gastrointestinal Gastrointestinal: Denies abdominal pain, diarrhea, nausea or vomiting Musculoskeletal Musculoskeletal: Denies back pain or neck pain Integumentary Denies rash Neurologic Neurologic: Denies dizziness, headache(s) or weakness EXAM Physical Exam Const Vital Signs: 04/27/21 01:31 04/27/21 01:34 04/27/21 01:35 Temperature 97.6 F L 97.6 F L Temperature Source Temporal Pulse Rate 73 73 Respiratory Rate 16 16 Respiratory Effort Normal Non-Labored Respiratory Pattern Normal Blood Pressure 105/49 L 105/49 L Blood Pressure Mean 67 67 Pulse Ox 93 93 Oxygen Delivery Method Room Air Room Air Oxygen Flow Rate (L/min) 04/27/21 02:34 04/27/21 03:00 04/27/21 03:42 Temperature 97.8 F 97.8 F Temperature Source Temporal Temporal Pulse Rate 71 78 80 Respiratory Rate 14 16 18 Respiratory Effort Respiratory Pattern Blood Pressure 92/76 105/72 87/65 L Blood Pressure Mean 81 83 72 Pulse Ox 93 98 98 Oxygen Delivery Method Nasal Cannula Nasal Cannula Nasal Cannula Oxygen Flow Rate (L/min) 2 2 2 04/27/21 03:48 04/27/21 03:59 Temperature 98.6 F 98.1 F Temperature Source Temporal Pulse Rate 88 85 Respiratory Rate 16 20 H Respiratory Effort Respiratory Pattern Blood Pressure 102/66 109/83 H Blood Pressure Mean 78 Pulse Ox 95 97 Oxygen Delivery Method Nasal Cannula Oxygen Flow Rate (L/min) 2 Positive well developed General Appearance ED: active, cooperative, comfortable and well developed HEENT Reports normocephalic, head/scalp atraumatic and moist mucous membranes Eyes PERRL and EOMs intact bilaterally Neck supple Resp normal respiratory effort and clear to auscultation bilaterally Auscultation: Negative for rales, rhonchi or wheezes Cardio regular rate, regular rhythm and no murmurs GI normal to inspection, nondistended, normoactive bowel sounds and non-tender Palpation: soft; Negative for guarding or rebound tenderness present Narrative: Suprapubic catheter present. Left nephrostomy tube present. There is pus in the bag. Back/Spine no CVA tenderness Extremity normal to inspection General Extremety ED: Negative for edema or tenderness General Extremity: Negative for edema Neuro CN's II-XII intact bilaterally and no sensory deficits noted Sensorium / Orientation: alert Motor Exam: strength 5/5 throughout Psych mental status grossly normal Skin Skin Narrative: Erythema of left lower extremity. She states this was due to allergic reaction to bedsheets. MDM MDM MDM Narrative Medical decision making narrative: Patient presents to the ED for hypoglycemia. She was treated and now has no complaints upon arrival to the ED. Patient does bring up that she does have pus in her left nephrostomy bag. This is started yesterday. Her urologist is not aware of this. She actually is supposed to follow-up with them tomorrow. Basic lab work being obtained. Will check KUB to eval placement. Culture is being sent of the contents of the nephrostomy bag. Patient's lab work shows her to be anemic although this is the highest it is been on previous lab draws. She does not have a high white blood cell count. Her creatinine appears to be near baseline. Her glucose has returned to normal. With the pus in the nephrostomy bag I did call the on-call urologist at [facility]. I did speak with them. They recommended that I do not do any treatment at this time. They will likely have to replace this. Looking at her previous urine cultures grew out many different types of bacteria. Patient does not have any symptoms. X-ray was obtained which showed the nephrostomy tube to be near the renal calculi it is likely still in place but not confirmed completely. Culture of the nephrostomy bag has been obtained. She needs to call her urologist in the morning to schedule appointment as soon as possible for this procedure to be done. The patient and the patient's family member at bedside understand and are agreeable with this plan. Discharged home in stable condition. Return precautions are reviewed. Lab Data Labs: Laboratory Results - last 24 hr 04/27/21 04/27/21 04/27/21 01:20 01:20 01:36 WBC 7.8 RBC 3.47 L Hgb 9.4 L Hct 31.2 L MCV 89.9 MCH 27.1 MCHC 30.1 L RDW Std Deviation 63.1 H RDW Coeff of Jessi 19.1 H Plt Count 343 MPV 9.3 Immature Gran % (Auto) 0.300 Neut % (Auto) 66.3 Lymph % (Auto) 15.1 L [place] % (Auto) 8.5 Eos % (Auto) 9.2 H Baso % (Auto) 0.6 Absolute Neuts (auto) 5.2 Absolute Lymphs (auto) 1.18 Nucleated RBC % 0 Sodium 135 L Potassium 3.5 Chloride 99 Carbon Dioxide 28.0 Anion Gap 8 BUN 54 H Creatinine 1.78 H Estim Creat Clear Calc 24.95 Est GFR (MDRD) Af Amer 36 L Est GFR (MDRD) Non-Af 30 L BUN/Creatinine Ratio 30.3 H Glucose 108 H Calcium 8.3 L POC Glucose 70 Radiography Diagnostic Testing: Radiology Impression KUB X-Ray 04/27/21 02:18 IMPRESSION: Right-sided ureteral stent as described. Left-sided nephrostomy tube. The exact location of the left-sided nephrostomy tube is difficult to assess at the level of the pigtail. If indicated, this can be assessed with injection of contrast into the nephrostomy tube. Electronically Signed: Elicia Murphy MD at 2:56 EDT , Service support , X-ray KUB interpreted by myself. Suprapubic catheter in place. Left nephrostomy tube is near the renal calculi seen. Increased bowel gas without evidence of obvious obstruction. Agree with radiologist interpretation. Discharge Plan Triage Chief Complaint: Hypoglycemia ED Provider: Kyree Celaya Dx/Rx/DC Orders Clinical Impression: Hypoglycemia, Nephrostomy complication Instructions: ED Hypoglycemia, Nondiabetic Prescriptions: No Action pravastatin 20 MG tablet 20 mg PO QHS RF: 0 venlafaxine 150 MG capsule 150 mg PO DAILY RF: 0 potassium chloride 10 MEQ tablet 10 meq PO DAILYCM RF: 0 methenamine hippurate 1 GM tablet 1 gm PO BID Qty: 0 RF: 0 aspirin 81 MG tablet,chewable 81 mg PO DAILY MDD heart health Qty: 0 RF: 0 famotidine 20 MG tablet 20 mg PO QHS RF: 0 furosemide 20 MG tablet 20 mg PO BID RF: 0 acetaminophen 500 MG tablet 1,000 mg PO Q6H PRN PRN (Reason: Pain Score 1-10) RF: 0 gabapentin 600 mg Tablet 600 mg PO BID RF: 0 miconazole nitrate 2 % Powder 1 applic TOPICAL BID RF: 0 baclofen 20 mg Tablet 20 mg PO QHS RF: 0 magnesium hydroxide [Milk of Magnesia] 400 mg/5 mL Suspension 30 ml PO DAILY PRN (Reason: Constipation) RF: 0 baclofen 10 mg Tablet 10 mg PO DAILY RF: 0 bisacodyl 10 mg Suppository 10 mg FL DAILY PRN (Reason: Constipation) RF: 0 lisinopril 10 mg Tablet 10 mg PO DAILY RF: 0 Fleet Enema 19-7 gram/118 mL Enema 118 ml FL DAILY PRN PRN (Reason: Constipation) RF: 0 omeprazole 20 mg Capsule,Delayed Release(Dr/Ec) 20 mg PO DAILY RF: 0 methadone 5 mg Tablet 2.5 mg PO QHS RF: 0 Multi Minerals Tablet 1 tab PO DAILY RF: 0 ertapenem 1 gram Recon Soln 1 g IM DAILY RF: 0 polyethylene glycol Powder 1 ea MISCELLANEOUS DAILY RF: 0 diphenhydramine HCl 25 MG capsule 25 mg PO BID PRN PRN (Reason: Itching) RF: 0 oxybutynin chloride 5 MG tablet 15 mg PO DAILY RF: 0 Primary Care Provider: Colby Valenzuela Referrals: Colby Valenzuela DO [Primary Care Provider] - 2 Days Activity Restrictions/Additional Instructions: Please call your urologist at [facility] for nephrostomy evaluation. Most likely will need this to be replaced. Disposition Disposition: Home, self care Discharge Date/Time: 04/27/21 04:18
[2021-04-27 02:28] LABS: Anion Gap 8 (5-15); BUN 54 mg/dL (7-18); BUN/Creat Ratio 30.3 RATIO (10-20); Calcium,Total 8.3 mg/dL (8.5-10.1); Chloride 99 mmol/L (98-107); Creatinine, Serum 1.78 mg/dL (0.55-1.02); EST Glomerular Filtration Rate 30 mL/min (>60); Est Glom Filt Rate - Afr Amer 36 mL/min (>60); Estimated Creatinine Clearance 24.95 ml/min; Glucose 108 mg/dL (74-106); Potassium 3.5 mmol/L (3.5-5.1); Sodium Level 135 mmol/L (136-145)
--- NOTE | 2021-04-27 04:10 | ED.RN ---
Nurse at [place] is aware of update on patient and aware we have eta of 20 minutes for squad to bring her back. Aware to assure follow up with urology tomorrow, and all ingo in packet. Nurse states she could not get the bandage off the nephrotomy site and told her to have urology look at it when she visits him as he should be the one who placed the tubes. Nurse is agreeable.
== END 2021-04-27 04:18 | disposition home or self-care (01) ==
PROVIDERS: Emergency Provider Emergency Medicine; PCP Family Medicine
DX: E16.2 Hypoglycemia, unspecified (principal); N99.528 Other complication of incontinent external stoma of urinary tract; E66.01 Morbid (severe) obesity due to excess calories; E78.5 Hyperlipidemia, unspecified; I10 Essential (primary) hypertension; I48.91 Unspecified atrial fibrillation; Z79.82 Long term (current) use of aspirin; Z79.899 Other long term (current) drug therapy
CPT/HCPCS: 74018; 80048; 82962; 85025; 87070; 87077; 87086; 87088; 87186; 87205; 99284; A4216

== ENCOUNTER 2021-05-01 09:03 | Emergency (ER) | payer MEDICARE, OTHER, SELFPAY ==
[2021-04-27 01:31] VITALS: BMI 43.6
[2021-05-01] VITALS (8 sets, daily range): BP systolic 87–118; BP diastolic 43–101; PULSE 76–81; RESP 16–82; TEMP 36.1; O2SAT 95–100; BMI 44.6
--- NOTE | 2021-05-01 09:27 | EKG12_ITS ---
Test Reason : SOB Blood Pressure : / mmHG Vent. Rate : 088 BPM Atrial Rate : 088 BPM P-R Int : 122 ms QRS Dur : 080 ms QT Int : 430 ms P-R-T Axes : 000 049 087 degrees QTc Int : 520 ms Sinus rhythm with occasional Premature ventricular complexes Low voltage QRS Nonspecific ST and T wave abnormality Abnormal ECG Confirmed by WINDY THOMPSON, ROLAND ([id number]), web content editor BROOKS WIGGINS ([id number]) on 05/03/2021 10:39:23 A M Referred By: ASIF Confirmed By:RICK TEMPLE MD
--- NOTE | 2021-05-01 09:33 | RAD_ITS ---
History: Low blood pressure EXAMINATION/TECHNIQUE: XR Chest 1 View: Portable COMPARISON: April 16, 2021 FINDINGS: LINES/DEVICES: Right sided central venous catheter remains in place. LUNGS: Mild res atelectasis at the lung bases. No pneumothorax. MEDIASTINUM AND CARDIOVASCULAR STRUCTURES: Cardiac silhouette not enlarged. Central airways and mediastinal contour are unremarkable. BONES AND SOFT TISSUES: Unremarkable. RAD/Chest 1 View (Portable) IMPRESSION: Mild bibasilar atelectasis. No significant interval change at 1101 Reported and signed by: William Vences MD Electronically Signed: William Vences MD at 11:00 EDT Tel , Service support ,
[2021-05-01 09:36] LABS: Bedside Glucose 85 mg/dL (70-110)
--- NOTE | 2021-05-01 09:37 | EDS_ITS ---
HPI History of Present Illness Chief Complaint: Confusion Narrative Narrative: Patient has an extensive past medical history presents with confusion from residential she has a history of severe sepsis MICHAELLE debility sacral decubitus ulcer wheelchair-bound UTI. Her most recent issues are she has a chronic suprapubic Henry catheter, she was recently found to have 2 staghorn calculi blocking both kidneys she was seen at [facility] where per the sister she had a left urostomy drainage tube placed and a right ureteral stent procedure done to drain both kidneys. She is on IV antibiotics at [facility] the plan is to further manage all the above with urology care at [facility] today she woke and seemed confused she told residential staff she thought it was Monday that her son was in the room and that they should basically go to Monday school [facility]. The patient at this time has a blood pressure about 88 over palp the sister says that is close to her baseline. The patient has no head neck chest or abdominal pain at this point time she is awake she is alert she is answering questions appropriately she is oriented x4 and she has no specific complaint. 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 Morbid obesity VITA (obstructive sleep apnea) VITA (obstructive sleep apnea) Pressure ulcer of coccygeal region, stage 3 Renal calculus, bilateral Severe sepsis Ulcer of abdomen wall with fat layer exposed Ulcer of left groin with fat layer exposed UTI (urinary tract infection) due to urinary indwelling catheter V tach Home Medications pravastatin 20 mg PO QHS 12/17/18 [History Last Taken 08/06/20] venlafaxine 150 mg PO DAILY 07/02/19 [History Last Taken 08/07/20] potassium chloride 10 meq PO DAILYCM 08/18/19 [History Last Taken 08/06/20] aspirin 81 mg PO DAILY #0 [facility] 08/13/20 [Rx Last Taken Unknown] methenamine hippurate 1 gm PO BID #0 08/13/20 [Rx Last Taken 08/07/20] acetaminophen 1,000 mg PO Q6H PRN PRN tablet 02/18/21 [Rx Last Taken Unknown] baclofen 10 mg PO DAILY 04/16/21 [History Last Taken Unknown] baclofen 20 mg PO QHS 04/16/21 [History Last Taken Unknown] bisacodyl 10 mg CA DAILY PRN 04/16/21 [History Last Taken Unknown] diphenhydramine HCl 25 mg PO BID PRN PRN 04/16/21 [History Last Taken Unknown] ertapenem 1 g IM DAILY 04/16/21 [History Last Taken Unknown] gabapentin 600 mg PO BID 04/16/21 [History Last Taken Unknown] magnesium hydroxide [Milk of Magnesia] 30 ml PO DAILY PRN 04/16/21 [History Last Taken Unknown] miconazole nitrate 1 applic TOPICAL BID 04/16/21 [History Last Taken Unknown] minerals [Multi Minerals] 1 tab PO DAILY 04/16/21 [History Last Taken Unknown] omeprazole 20 mg PO DAILY 04/16/21 [History Last Taken Unknown] oxybutynin chloride 15 mg PO DAILY 04/16/21 [History Last Taken Unknown] polyethylene glycol 1 ea MISCELLANEOUS DAILY 04/16/21 [History Last Taken Unknown] sodium phosphates [Fleet Enema] 118 ml CA DAILY PRN PRN 04/16/21 [History Last Taken Unknown] Allergy/AdvReac Type Severity Reaction Status Date / Time adhesive tape Allergy blisters Verified 05/01/21 09:05 Influenza Virus Vaccines Allergy shortness Verified 05/01/21 09:05 of breath/severe wheezing iron Allergy from IV Verified 05/01/21 09:05 form chest pressure and heart palpitations Sulfa (Sulfonamide Allergy Shortness Verified 05/01/21 09:05 Antibiotics) of breath meloxicam [From Mobic] AdvReac gi upset Verified 05/01/21 09:05 seasonal allergies Allergy Other Uncoded 05/01/21 09:05 Surgical History H/O: hysterectomy History of cholecystectomy History of tonsillectomy Hx of appendectomy Social History Smoking Status: Never smoker ROS ROS ED ROS Narrative Includes as above the issue was confusion that has now resolved Constitutional Constitutional ED: Reports subjective, sweats and other; Denies chills, fever(s) or weight loss Eyes Eyes: Denies blurry vision or change in vision ENT ENT ED: Denies ear pain Cardiovascular Cardiovascular: Denies chest pain or palpitations Respiratory/Chest Respiratory/Chest: Denies dyspnea Gastrointestinal Gastrointestinal: Denies abdominal pain, nausea or vomiting Genitourinary Genitourinary ED: Denies dysuria or hematuria Musculoskeletal Musculoskeletal: Denies arthralgias or myalgias Integumentary Reports rash; Denies abscess Neurologic Neurologic: Denies weakness Psychiatric Psychiatric: Denies anxiety or depression Endocrine Endocrinology: Denies polydipsia or polyuria Allergic/Immunologic Allergic/Immunologic ED: Denies urticaria EXAM Physical Exam Narrative Exam Narrative: Her blood pressure is 88 over palp the sister reports they take the blood pressure right forearm area and is usually around that range but she cannot confirm that, she has a left urostomy tube draining grayish fluid, she has a suprapubic catheter, draining cloudy urine, she has a sacral decubitus ulcer that sister states is unchanged it is about 2 cm circular involves more of the left buttock no drainage no crepitance no foul odor she is a very large woman she is awake and alert her lungs are diminished the heart tones are unremarkable the abdomen is very obese but soft nontender she has redness to both lower extremities is chronic she is wheelchair confined she has very little movement of her extremities her mental status as she is awake she knows the hospital the city the president her sister and has no complaints Const Vital Signs: 05/01/21 09:06 05/01/21 09:26 05/01/21 09:31 Temperature 96.9 F L Temperature Source Oral Pulse Rate 81 77 Respiratory Rate 17 82 H 16 Respiratory Effort Normal Non-Labored Respiratory Pattern Normal Blood Pressure 117/101 H 88/75 L 118/93 H Blood Pressure Mean 106 79 101 Pulse Ox 100 99 100 Oxygen Delivery Method Room Air Nasal Cannula Oxygen Flow Rate (L/min) 3 05/01/21 09:33 05/01/21 10:03 05/01/21 10:48 Temperature Temperature Source Pulse Rate 78 77 Respiratory Rate 17 Respiratory Effort Respiratory Pattern Blood Pressure 118/93 H 90/43 L 87/72 L Blood Pressure Mean 101 58 77 Pulse Ox 98 Oxygen Delivery Method Nasal Cannula Oxygen Flow Rate (L/min) 3 05/01/21 12:12 Temperature Temperature Source Pulse Rate 76 Respiratory Rate 17 Respiratory Effort Respiratory Pattern Blood Pressure 90/60 Blood Pressure Mean 70 Pulse Ox 99 Oxygen Delivery Method Room Air Oxygen Flow Rate (L/min) MDM MDM MDM Narrative Medical decision making narrative: The differentials rather extensive there is no signs of stroke her mental status is at baseline currently she has a history of severe sepsis metabolic insomnia encephalopathy A. fib multiple other medical problems multiple sites for infection given all the above we will send UA and urine culture from the left urostomy, UA urine culture from the Henry catheter, blood cultures sepsis protocol with IV fluids antibiotics reevaluate The patient's ED screening evaluation is generally unremarkable, please see all those lab reports she did obtain the cultures as to be described above, 1 view chest x-ray to my review showed nothing acute radiology concurred, lactate was less than 1, white count was within normal range, she received IV fluids IV antibiotics discussed with the sister and the patient The patient's baseline systolic blood pressure runs 90-100, the patient apparently had a blood sugar below 80 prior to the onset of confusion she is t aking p.o. here discussed management with sister and patient they are both comfortable discharge back to residential to continue her IV antibiotics and other therapies per her physicians at residential and at [facility] to return for change in symptoms again the patient never had any complaints states she feels fine Home stable Final impression transient change in level consciousness resolved, history of UTI sepsis multiple other medical problems see above Lab Data Labs: Laboratory Results - last 24 hr 05/01/21 05/01/21 05/01/21 09:29 09:50 09:55 WBC 6.1 RBC 3.37 L Hgb 9.1 L Hct 30.1 L MCV 89.3 MCH 27.0 MCHC 30.2 L RDW Std Deviation 60.3 H RDW Coeff of Jessi 18.2 H Plt Count 305 MPV 10.0 Immature Gran % (Auto) 0.800 Neut % (Auto) 57.9 Lymph % (Auto) 17.5 L Riley % (Auto) 8.9 Eos % (Auto) 13.7 H Baso % (Auto) 1.2 H Absolute Neuts (auto) 3.5 Absolute Lymphs (auto) 1.06 Nucleated RBC % 0 PT INR Sodium Potassium Chloride Carbon Dioxide Anion Gap BUN Creatinine Estim Creat Clear Calc Est GFR (MDRD) Af Amer Est GFR (MDRD) Non-Af BUN/Creatinine Ratio Glucose Lactic Acid Calcium Total Bilirubin AST ALT Alkaline Phosphatase Troponin I Total Protein Albumin Globulin Albumin/Globulin Ratio Lipase Urine Color Yellow Urine Clarity Turbid Urine pH 7.0 Ur Specific [place] 1.015 Urine Protein 100 H Urine Glucose (UA) Normal Urine Ketones Negative Urine Occult Blood 250 H Urine Nitrite Negative Urine Bilirubin Negative Urine Urobilinogen Normal Ur Leukocyte Esterase 500 H Urine RBC 0 SEEN Urine WBC >100 SEEN Ur Squamous Epith Cells 0 SEEN Urine Bacteria 0 SEEN Urine Mucus 0 SEEN POC Glucose 85 05/01/21 05/01/21 05/01/21 09:55 09:55 09:55 WBC RBC Hgb Hct MCV MCH MCHC RDW Std Deviation RDW Coeff of Jessi Plt Count MPV Immature Gran % (Auto) Neut % (Auto) Lymph % (Auto) Riley % (Auto) Eos % (Auto) Baso % (Auto) Absolute Neuts (auto) Absolute Lymphs (auto) Nucleated RBC % PT 14.5 INR 1.2 Sodium 134 L Potassium 4.2 Chloride 99 Carbon Dioxide 28.0 Anion Gap 7 BUN 57 H Creatinine 1.80 H Estim Creat Clear Calc 26.66 Est GFR (MDRD) Af Amer 35 L Est GFR (MDRD) Non-Af 29 L BUN/Creatinine Ratio 31.7 H Glucose 76 Lactic Acid 0.9 Calcium 8.3 L Total Bilirubin 0.20 AST 25 ALT 16 Alkaline Phosphatase 119 H Troponin I < 0.015 Total Protein 6.2 L Albumin 1.5 L Globulin 4.7 H Albumin/Globulin Ratio 0.3 L Lipase 38 L Urine Color Urine Clarity Urine pH Ur Specific [place] Urine Protein Urine Glucose (UA) Urine Ketones Urine Occult Blood Urine Nitrite Urine Bilirubin Urine Urobilinogen Ur Leukocyte Esterase Urine RBC Urine WBC Ur Squamous Epith Cells Urine Bacteria Urine Mucus POC Glucose Radiography Diagnostic Testing: Radiology Impression Chest X-Ray 05/01/21 09:33 IMPRESSION: Mild bibasilar atelectasis. No significant interval change at 1101 Reported and signed by: William Vences MD Electronically Signed: William Vences MD at 11:00 EDT Tel , Service support , Discharge Plan Triage Chief Complaint: Confusion ED Provider: Lizet Betancur Dx/Rx/DC Orders Clinical Impression: UTI (urinary tract infection) due to urinary indwelling catheter Instructions: ED Pyelonephritis, Female (Adult), ED Bladder Infection, Female (Adult) Prescriptions: No Action pravastatin 20 MG tablet 20 mg PO QHS RF: 0 venlafaxine 150 MG capsule 150 mg PO DAILY RF: 0 potassium chloride 10 MEQ tablet 10 meq PO DAILYCM RF: 0 methenamine hippurate 1 GM tablet 1 gm PO BID Qty: 0 RF: 0 aspirin 81 MG tablet,chewable 81 mg PO DAILY MDD heart health Qty: 0 RF: 0 acetaminophen 500 MG tablet 1,000 mg PO Q6H PRN PRN (Reason: Pain Score 1-10) RF: 0 gabapentin 600 mg Tablet 600 mg PO BID RF: 0 miconazole nitrate 2 % Powder 1 applic TOPICAL BID RF: 0 baclofen 20 mg Tablet 20 mg PO QHS RF: 0 magnesium hydroxide [Milk of Magnesia] 400 mg/5 mL Suspension 30 ml PO DAILY PRN (Reason: Constipation) RF: 0 baclofen 10 mg Tablet 10 mg PO DAILY RF: 0 bisacodyl 10 mg Suppository 10 mg CA DAILY PRN (Reason: Constipation) RF: 0 Fleet Enema 19-7 gram/118 mL Enema 118 ml CA DAILY PRN PRN (Reason: Constipation) RF: 0 omeprazole 20 mg Capsule,Delayed Release(Dr/Ec) 20 mg PO DAILY RF: 0 Multi Minerals Tablet 1 tab PO DAILY RF: 0 ertapenem 1 gram Recon Soln 1 g IM DAILY RF: 0 polyethylene glycol Powder 1 ea MISCELLANEOUS DAILY RF: 0 diphenhydramine HCl 25 MG capsule 25 mg PO BID PRN PRN (Reason: Itching) RF: 0 oxybutynin chloride 5 MG tablet 15 mg PO DAILY RF: 0 Primary Care Provider: Colby Valenzuela Referrals: Colby Valenzuela DO [Primary Care Provider] -
[2021-05-01 10:25] LABS: Absolute Lymphocyte Count 1.06 X10^3/uL (0.83-4.51); Absolute Neutrophil Count 3.5 X10^3/uL (2.0-7.7); Basophil# 0.07 X10^3/uL; Basophil% 1.2 % (0-1); Eosinophil# 0.83 X10^3/uL; Eosinophils% 13.7 % (0-5); Hematocrit 30.1 % (37-47); Hemoglobin 9.1 g/dL (12.0-15.0); Lymphocyte # 1.06 X10^3/ul (0.83-4.51); Lymphocyte % 17.5 % (19-41); Mean Corp Hgb Conc 30.2 g/dL (32-36); Mean Corpuscular Volume 89.3 fL (81-99); Monocyte# 0.54 X10^3/uL; Monocyte% 8.9 % (0-10); NRBC Flagged by Analyzer 0 % (0-5); Neutrophil # 3.52 X10^3/uL (2.7-7.7); Neutrophil % 57.9 % (47-70); Platelet Count 305 K/mm3 (150-450); RBC Distribution Width CV 18.2 % (11.6-14.6); RBC Distribution Width SD 60.3 fl (35.1-43.9); Red Blood Count 3.37 M/mm3 (4.2-5.4); White Blood Count 6.1 K/mm3 (4.4-11.0)
[2021-05-01 10:29] LABS: International Normalized Ratio 1.2; Prothrombin Time (Protime)PT. 14.5 SECONDS (11.7-14.9)
[2021-05-01 10:30] LABS: Bacteria 0 SEEN /hpf (None Seen); Mucous, Urine 0 SEEN /hpf (<or=2+); Red Blood Cells-Urine 0 SEEN /hpf (0-5); Squamous Epithelial Cells - UA 0 SEEN /hpf (5-10)
[2021-05-01 10:41] LABS: ALB/GLOB Ratio 0.3 RATIO (0.9-2.4); AST(SGOT) 25 U/L (15-37); Alanine Aminotransfer ALT/SGPT 16 U/L (13-56); Albumin, Serum 1.5 g/dL (3.2-5.0); Alkaline Phosphatase 119 U/L (45-117); Anion Gap 7 (5-15); BUN 57 mg/dL (7-18); BUN/Creat Ratio 31.7 RATIO (10-20); Calcium,Total 8.3 mg/dL (8.5-10.1); Chloride 99 mmol/L (98-107); EST Glomerular Filtration Rate 29 mL/min (>60); Est Glom Filt Rate - Afr Amer 35 mL/min (>60); Estimated Creatinine Clearance 26.66 ml/min; Globulin 4.7 g/dL (2.2-4.2); Glucose 76 mg/dL (74-106); Lipase 38 U/L (73-393); Potassium 4.2 mmol/L (3.5-5.1); Protein, Total 6.2 g/dL (6.4-8.2); Sodium Level 134 mmol/L (136-145)
[2021-05-01 10:43] LABS: Color, Urine Yellow (Yellow); Glucose, Dipstick Normal (Normal); Ketone-Dipstick Negative (Negative); Leukocyte Esterase-Dipstick 500 /ul (Negative); Nitrite-Dipstick Negative (Negative); Occult Blood-Urine 250 /ul (Negative); Protein-Dipstick 100 mg/dl (Negative); Specific Gravity, Urine 1.015 (1.002-1.030); Urine Bilirubin Dipstick Negative (Negative); Urine Clarity Turbid (Clear); Urine Urobilinogen Normal (Normal)
[2021-05-01 10:44] LABS: Lactic Acid 0.9 mmol/L (0.4-1.9)
[2021-05-01 10:52] LABS: White Blood Cells >100 SEEN /hpf (0-5)
[2021-05-01] MEDS: 0.9% Normal Saline 1,000 ML 999 ML IV (11:33)
== END 2021-05-01 14:35 | disposition skilled nursing facility (03) ==
PROVIDERS: Emergency Provider Emergency Medicine; PCP Family Medicine
DX: N39.0 Urinary tract infection, site not specified (principal); E66.01 Morbid (severe) obesity due to excess calories; E78.5 Hyperlipidemia, unspecified; F32.9 Major depressive disorder, single episode, unspecified; Z99.3 Dependence on wheelchair; Z87.440 Personal history of urinary (tract) infections; Z79.82 Long term (current) use of aspirin; Z79.899 Other long term (current) drug therapy
CPT/HCPCS: 71045; 80053; 81001; 82962; 83605; 83690; 84484; 85025; 85610; 87040; 87077; 87086; 87088; 87186; 93005; 96365; 96366; 96367; 99284; J7030; J7040; J7050; A4216

== ENCOUNTER 2021-06-09 18:44 | Inpatient (IN) | payer MEDICARE, OTHER, SELFPAY ==
[2021-05-01 09:33] VITALS: BMI 44.6
[2021-06-09] VITALS (7 sets, daily range): BP systolic 106–133; BP diastolic 72–96; PULSE 98–138; RESP 13–15; TEMP 36.5–36.6; O2SAT 99–100; BMI 37.3
[2021-06-09] MEDS: Ondansetron 4 MG/2 ML Vial IV (19:02)
--- NOTE | 2021-06-09 19:16 | EKG12_ITS ---
Test Reason : ALT LOC Blood Pressure : / mmHG Vent. Rate : 113 BPM Atrial Rate : 113 BPM P-R Int : 168 ms QRS Dur : 082 ms QT Int : 370 ms P-R-T Axes : 021 108 063 degrees QTc Int : 507 ms Sinus tachycardia with Premature supraventricular complexes Low voltage QRS Possible Anterolateral infarct , age undetermined Abnormal ECG Confirmed by WINDY THOMPSON, ROLAND ([id number]), industrial editor BROOKS WIGGINS ([id number]) on 06/14/2021 9:05:12 AM Referred By: JOSE J Confirmed By:RICK TEMPLE MD
--- NOTE | 2021-06-09 19:17 | CT_ITS ---
EXAM: CT ABDOMEN AND PELVIS WITHOUT INTRAVENOUS CONTRAST : 1945 CLINICAL INDICATION: renal calculus TECHNIQUE: Helically acquired images were obtained of the abdomen and pelvis without intravenous contrast. This CT exam was performed using one or more of the following dose reduction techniques: automated exposure control, adjustment of the mA and/or kV according to patient size, and/or use of iterative reconstruction technique. This report was created using [employer] report generation technology. COMPARISON: 03/23/2021 FINDINGS: LOWER THORAX: There is left basilar atelectasis. No cardiomegaly. No significant pericardial effusion. ABDOMEN: LIVER: The liver is diffusely decreased in attenuation compatible fatty infiltration. GALLBLADDER AND BILE DUCTS: There are surgical clips from a cholecystectomy. No intra- or extrahepatic biliary ductal dilation. PANCREAS: Unremarkable. No focal cystic mass. SPLEEN: There are several splenic granulomas. ADRENALS: Unremarkable. No nodules. KIDNEYS AND URETERS: There is a left-sided percutaneous nephrostomy. There are bilateral renal calculi. There is perinephric inflammation on the left however this has decreased from the reference patient. Normal renal size and position. No hydronephrosis. STOMACH AND BOWEL: Unremarkable. No stomach or bowel distention. No focal inflammatory change. PELVIS: APPENDIX: No evidence of acute appendicitis. BLADDER: There is a Henry catheter in place. REPRODUCTIVE: Unremarkable as visualized. No mass. ABDOMEN and PELVIS: INTRAPERITONEAL SPACE: Unremarkable. No ascites or other fluid collection. No free air. BONES/JOINTS: Unremarkable. No suspicious lytic or blastic abnormality. SOFT TISSUES: Unremarkable. No discrete abdominal or pelvic wall hernia. VASCULATURE: Unremarkable. Abdominal aorta is non-dilated. LYMPH NODES: Unremarkable. No enlarged lymph nodes. TUBES, LINES AND DEVICES: There is a right ureteral stent in place. CT/Abdomen/Pelvis without Cont IMPRESSION: 1. Placement of left-sided percutaneous nephrostomy tube. There is perinephric inflammation with bilateral renal calculi however the medical formation has decreased from the reference exam. 2. There is a right ureteral stent in place in good position. Individualized dose optimization techniques were used for this CT. at 2112 Reported and signed by: Jorge Luis Landa MD Electronically Signed: Jorge Luis Landa MD at 21:11 EDT Tel , Service support ,
--- NOTE | 2021-06-09 19:18 | CT_ITS ---
STUDY: CT BRAIN WITHOUT CONTRAST REASON FOR EXAM: Female, 75 years old. altered loc RADIATION DOSAGE (If Supplied By Facility): CTDIvol = ( 44.99 ) mGy, DLP = ( 829.85 ) mGycm TECHNIQUE: Transaxial CT imaging of the brain was performed without administration of intravenous contrast material. Individualized dose optimization techniques were used for this CT. COMPARISON: CT brain 11/27/2020 FINDINGS: Normal soft tissue structures. Exostosis right external table of the frontal bone. There is mild cerebral atrophy with widening of the extra-axial spaces and ventricular dilatation. There are areas of decreased attenuation within the white matter tracts of the supratentorial brain, consistent with microvascular disease changes. Normal basal ganglia and thalami. Normal brainstem. Normal cerebellum. There is no intracranial hemorrhage. There are no findings of an acute ischemic infarction. Normal visualized paranasal sinuses. CT/Brain/Head without Contrast IMPRESSION: Chronic involutional changes of the brain. Electronically Signed: Salvatore Marlow MD at 21:37 EDT , Service support ,
--- NOTE | 2021-06-09 19:23 | EX.ED.DYSGE1 ---
HPI History of Present Illness Chief Complaint: Alt LOC Informant: family, EMS and SNF Narrative Narrative: 75-year-old female presents the emergency department with altered mental status. Sister accompanies her and [facility] me [facility]. She has a left-sided nephrostomy tube due to recurrent UTIs and staghorn calculus. [facility] at [facility] and is scheduled to be assessed next Monday. That appointment has been rescheduled a couple times. She is currently receiving IV antibiotics through a left what appears to be subclavian line. The antibiotic is reported to be a ertapenem. The sister tells me that on Monday she was up talking. She does not ambulate typically is wheelchair-bound. She brought her [employer] and they had a good conversation. Nursing reports the patient did not eat that much yesterday and today was having difficulty waking up was found to be tachycardic. There is no report of fevers. 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 Kidney calculus Morbid obesity VITA (obstructive sleep apnea) VITA (obstructive sleep apnea) Pressure ulcer of coccygeal region, stage 3 Pyonephrosis Renal calculus, bilateral Severe sepsis Ulcer of abdomen wall with fat layer exposed Ulcer of left groin with fat layer exposed UTI (urinary tract infection) due to urinary indwelling catheter V tach Home Medications pravastatin 20 mg PO QHS 12/17/18 [History Last Taken 08/06/20] venlafaxine 150 mg PO DAILY 07/02/19 [History Last Taken 08/07/20] potassium chloride 10 meq PO DAILYCM 08/18/19 [History Last Taken 08/06/20] aspirin 81 mg PO DAILY #0 [facility] 08/13/20 [Rx Last Taken Unknown] methenamine hippurate 1 gm PO BID #0 08/13/20 [Rx Last Taken 08/07/20] acetaminophen 1,000 mg PO Q6H PRN PRN tablet 02/18/21 [Rx Last Taken Unknown] baclofen 10 mg PO DAILY 04/16/21 [History Last Taken Unknown] baclofen 20 mg PO QHS 04/16/21 [History Last Taken Unknown] bisacodyl 10 mg FL DAILY PRN 04/16/21 [History Last Taken Unknown] diphenhydramine HCl 25 mg PO BID PRN PRN 04/16/21 [History Last Taken Unknown] ertapenem 1 g IM DAILY 04/16/21 [History Last Taken Unknown] gabapentin 600 mg PO BID 04/16/21 [History Last Taken Unknown] magnesium hydroxide [Milk of Magnesia] 30 ml PO DAILY PRN 04/16/21 [History Last Taken Unknown] miconazole nitrate 1 applic TOPICAL BID 04/16/21 [History Last Taken Unknown] minerals [Multi Minerals] 1 tab PO DAILY 04/16/21 [History Last Taken Unknown] omeprazole 20 mg PO DAILY 04/16/21 [History Last Taken Unknown] oxybutynin chloride 15 mg PO DAILY 04/16/21 [History Last Taken Unknown] polyethylene glycol 1 ea MISCELLANEOUS DAILY 04/16/21 [History Last Taken Unknown] sodium phosphates [Fleet Enema] 118 ml FL DAILY PRN PRN 04/16/21 [History Last Taken Unknown] Allergy/AdvReac Type Severity Reaction Status Date / Time adhesive tape Allergy blisters Verified 06/09/21 18:58 Influenza Virus Vaccines Allergy shortness Verified 06/09/21 18:58 of breath/severe wheezing iron Allergy from IV Verified 06/09/21 18:58 form chest pressure and heart palpitations Sulfa (Sulfonamide Allergy Shortness Verified 06/09/21 18:58 Antibiotics) of breath meloxicam [From Mobic] AdvReac gi upset Verified 06/09/21 18:58 seasonal allergies Allergy Other Uncoded 06/09/21 18:58 Surgical History H/O nephrostomy H/O: hysterectomy History of cholecystectomy History of tonsillectomy Hx of appendectomy Social History Smoking Status: Never smoker substance use type: does not use ROS ROS ED Review of Systems ROS Unobtainable: due to mental status EXAM Physical Exam Narrative Exam Narrative: Patient apparently vomited upon arrival in the emergency department. Const Vital Signs: 06/09/21 18:49 06/09/21 19:53 06/09/21 20:25 Temperature 97.8 F Temperature Source Temporal Pulse Rate 138 H 112 H 108 H Respiratory Rate 14 15 15 Blood Pressure 114/72 129/93 H 133/96 H Blood Pressure Mean 86 105 108 Pulse Ox 100 Oxygen Delivery Method Room Air Oxygen Flow Rate (L/min) 06/09/21 21:14 Temperature 98 F Temperature Source Oral Pulse Rate 108 H Respiratory Rate 13 Blood Pressure Blood Pressure Mean Pulse Ox 99 Oxygen Delivery Method Nasal Cannula Oxygen Flow Rate (L/min) 2 Positive well nourished, well developed and obese General Appearance ED: well developed Nutritional Appearance: obese HEENT Reports normocephalic, head/scalp atraumatic and moist mucous membranes Eyes PERRL and EOMs intact bilaterally Neck no lymphadenopathy, supple and no JVD Resp normal respiratory effort and clear to auscultation bilaterally Cardio regular rate and no murmurs Rate: tachycardic GI normal to inspection, nondistended, normoactive bowel sounds and non-tender GI Narrative: Body habitus limits competence examination Palpation: soft Back/Spine no CVA tenderness and normal ROM Extremity normal to inspection General Extremety ED: Negative for edema General Extremity: Negative for edema Neuro Neuro Narrative: Follows basic commands Sensorium / Orientation: lethargic Motor Exam: general weakness Psych mental status grossly normal Mood & Affect: Negative for depressed or tearful Skin Skin Narrative: Patient has chronic candidal skin rash in the skin folds however on the left buttock extending up to the level of the nephrostomy tube and extending anteriorly is an area of erythema and appears to be excoriated skin. It is slightly warm to the touch. MDM MDM MDM Narrative Medical decision making narrative: Patient's white count is 5.4 hemoglobin is 9.8. Basic blood work was rather unremarkable. Serum CO2 is 28. Gap of 5. Lactic acid is normal. Urinalysis greater than 100 red cells 10-25 white cells but negative nitrates. I do not think this represents UTI. She is already on ertapenem. CT of the abdomen pelvis shows improvement of symptoms around the left kidney. The nephrostomy tube is in place and working. CT the brain negative. Patient remains tachycardic but afebrile. Her blood pressure has been stable. She continues to be rather lethargic which is off of her baseline. Lab Data Attestation: I reviewed the patient's lab results. Labs: Laboratory Results - last 24 hr 06/09/21 06/09/21 06/09/21 19:45 19:45 19:45 WBC 5.4 RBC 3.34 L Hgb 9.8 L Hct 31.6 L MCV 94.6 MCH 29.3 MCHC 31.0 L RDW Std Deviation 53.1 H RDW Coeff of Jessi 15.3 H Plt Count 226 MPV 10.8 Immature Gran % (Auto) 0.400 Neut % (Auto) 83.1 H Lymph % (Auto) 8.9 L [place] % (Auto) 6.8 Eos % (Auto) 0.2 Baso % (Auto) 0.6 Absolute Neuts (auto) 4.5 Absolute Lymphs (auto) 0.48 L Nucleated RBC % 0 Differential Comment SCANNED PT 14.5 INR 1.2 APTT 35.3 Sodium 143 Potassium 3.9 Chloride 110 H Carbon Dioxide 28.0 Anion Gap 5 BUN 21 H Creatinine 0.89 Estim Creat Clear Calc 55.94 Est GFR (MDRD) Af Amer 79 Est GFR (MDRD) Non-Af 66 BUN/Creatinine Ratio 23.5 H Glucose 102 Lactic Acid Calcium 8.0 L Total Bilirubin 0.50 AST 21 ALT 18 Alkaline Phosphatase 102 Troponin I High Sens 5.1 Total Protein 6.3 L Albumin 1.6 L Globulin 4.7 H Albumin/Globulin Ratio 0.3 L Urine Color Urine Clarity Urine pH Ur Specific [place] Urine Protein Urine Glucose (UA) Urine Ketones Urine Occult Blood Urine Nitrite Urine Bilirubin Urine Urobilinogen Ur Leukocyte Esterase Urine RBC Urine WBC Ur Squamous Epith Cells Ur Transition Epith Cell Ur Renal Epithelial Cell Calcium Oxalate Crystal Urine Bacteria Urine Mucus 06/09/21 06/09/21 19:45 20:50 WBC RBC Hgb Hct MCV MCH MCHC RDW Std Deviation RDW Coeff of Jessi Plt Count MPV Immature Gran % (Auto) Neut % (Auto) Lymph % (Auto) [place] % (Auto) Eos % (Auto) Baso % (Auto) Absolute Neuts (auto) Absolute Lymphs (auto) Nucleated RBC % Differential Comment PT INR APTT Sodium Potassium Chloride Carbon Dioxide Anion Gap BUN Creatinine Estim Creat Clear Calc Est GFR (MDRD) Af Amer Est GFR (MDRD) Non-Af BUN/Creatinine Ratio Glucose Lactic Acid 0.9 Calcium Total Bilirubin AST ALT Alkaline Phosphatase Troponin I High Sens Total Protein Albumin Globulin Albumin/Globulin Ratio Urine Color Yellow Urine Clarity Cloudy Urine pH 6.5 Ur Specific [place] 1.015 Urine Protein 100 H Urine Glucose (UA) Normal Urine Ketones Negative Urine Occult Blood 250 H Urine Nitrite Negative Urine Bilirubin Negative Urine Urobilinogen 1 H Ur Leukocyte Esterase 500 H Urine RBC 10-25 SEEN Urine WBC >100 SEEN Ur Squamous Epith Cells 0 SEEN Ur Transition Epith Cell 0-5 SEEN Ur Renal Epithelial Cell 0-5 SEEN Calcium Oxalate Crystal RARE Urine Bacteria 0 SEEN Urine Mucus 0 SEEN Radiography Diagnostic Testing: Radiology Impression Abdomen/Pelvis CT 06/09/21 19:17 IMPRESSION: 1. Placement of left-sided percutaneous nephrostomy tube. There is perinephric inflammation with bilateral renal calculi however the medical formation has decreased from the reference exam. 2. There is a right ureteral stent in place in good position. Individualized dose optimization techniques were used for this CT. at 2112 Reported and signed by: Jorge Luis Landa MD Electronically Signed: Jorge Luis Landa MD at 21:11 EDT Tel , Service support , Brain CT 06/09/21 19:18 IMPRESSION: Chronic involutional changes of the brain. Electronically Signed: Salvatore Marlow MD at 21:37 EDT , Service support , Chest X-Ray 06/09/21 20:28 IMPRESSION: No acute findings in the chest. at 2103 Reported and signed by: Jorge Luis Landa MD Electronically Signed: Jorge Luis Landa MD at 21:02 EDT Tel , Service support , EKG Initial EKG: Attestation: I personally reviewed and interpreted this EKG as follows: Comments: EKG demonstrates a sinus tachycardia with supraventricular complexes. Ventricular rate of 113. Discharge Plan Triage Chief Complaint: Alt LOC ED Provider: Jose Palm Dx/Rx/DC Orders Clinical Impression: Encephalopathy acute Prescriptions: No Action pravastatin 20 MG tablet 20 mg PO QHS RF: 0 venlafaxine 150 MG capsule 150 mg PO DAILY RF: 0 potassium chloride 10 MEQ tablet 10 meq PO DAILYCM RF: 0 methenamine hippurate 1 GM tablet 1 gm PO BID Qty: 0 RF: 0 aspirin 81 MG tablet,chewable 81 mg PO DAILY MDD heart health Qty: 0 RF: 0 acetaminophen 500 MG tablet 1,000 mg PO Q6H PRN PRN (Reason: Pain Score 1-10) RF: 0 gabapentin 600 mg Tablet 600 mg PO BID RF: 0 miconazole nitrate 2 % Powder 1 applic TOPICAL BID RF: 0 baclofen 20 mg Tablet 20 mg PO QHS RF: 0 magnesium hydroxide [Milk of Magnesia] 400 mg/5 mL Suspension 30 ml PO DAILY PRN (Reason: Constipation) RF: 0 baclofen 10 mg Tablet 10 mg PO DAILY RF: 0 bisacodyl 10 mg Suppository 10 mg FL DAILY PRN (Reason: Constipation) RF: 0 Fleet Enema 19-7 gram/118 mL Enema 118 ml FL DAILY PRN PRN (Reason: Constipation) RF: 0 omeprazole 20 mg Capsule,Delayed Release(Dr/Ec) 20 mg PO DAILY RF: 0 Multi Minerals Tablet 1 tab PO DAILY RF: 0 ertapenem 1 gram Recon Soln 1 g IM DAILY RF: 0 polyethylene glycol Powder 1 ea MISCELLANEOUS DAILY RF: 0 diphenhydramine HCl 25 MG capsule 25 mg PO BID PRN PRN (Reason: Itching) RF: 0 oxybutynin chloride 5 MG tablet 15 mg PO DAILY RF: 0 Primary Care Provider: Colby Valenzuela Referrals: Colby Valenzuela DO [Primary Care Provider] -
[2021-06-09 20:01] LABS: Absolute Lymphocyte Count 0.48 X10^3/uL (0.83-4.51); Absolute Neutrophil Count 4.5 X10^3/uL (2.0-7.7); Basophil# 0.03 X10^3/uL; Basophil% 0.6 % (0-1); Eosinophil# 0.01 X10^3/uL; Eosinophils% 0.2 % (0-5); Hematocrit 31.6 % (37-47); Hemoglobin 9.8 g/dL (12.0-15.0); Lymphocyte # 0.48 X10^3/ul (0.83-4.51); Lymphocyte % 8.9 % (19-41); Mean Corpuscular Hgb 29.3 pg (27.0-32.0); Mean Corpuscular Volume 94.6 fL (81-99); Mean Platelet Vol. 10.8 fl (6.2-12.0); Monocyte# 0.37 X10^3/uL; Monocyte% 6.8 % (0-10); NRBC Flagged by Analyzer 0 % (0-5); Neutrophil % 83.1 % (47-70); POSITIVE DIFFERENTIAL YES; Platelet Count 226 K/mm3 (150-450); RBC Distribution Width CV 15.3 % (11.6-14.6); RBC Distribution Width SD 53.1 fl (35.1-43.9); Red Blood Count 3.34 M/mm3 (4.2-5.4); White Blood Count 5.4 K/mm3 (4.4-11.0)
[2021-06-09 20:03] LABS: Differential Indicated SCAN CRITERIA MET
[2021-06-09] MEDS: 0.9% Normal Saline 1,000 ML 150 ML IV (20:04)
[2021-06-09 20:16] LABS: International Normalized Ratio 1.2; Prothrombin Time (Protime)PT. 14.5 SECONDS (11.7-14.9)
[2021-06-09 20:17] LABS: Partial Thromboplast Time 35.3 Seconds (24.1-36.2)
[2021-06-09 20:27] LABS: ALB/GLOB Ratio 0.3 RATIO (0.9-2.4); AST(SGOT) 21 U/L (15-37); Alanine Aminotransfer ALT/SGPT 18 U/L (13-56); Albumin, Serum 1.6 g/dL (3.2-5.0); Alkaline Phosphatase 102 U/L (45-117); Anion Gap 5 (5-15); BUN 21 mg/dL (7-18); BUN/Creat Ratio 23.5 RATIO (10-20); Chloride 110 mmol/L (98-107); Creatinine, Serum 0.89 mg/dL (0.55-1.02); EST Glomerular Filtration Rate 66 mL/min (>60); Est Glom Filt Rate - Afr Amer 79 mL/min (>60); Estimated Creatinine Clearance 55.94 ml/min; Globulin 4.7 g/dL (2.2-4.2); Glucose 102 mg/dL (74-106); Potassium 3.9 mmol/L (3.5-5.1); Protein, Total 6.3 g/dL (6.4-8.2); Sodium Level 143 mmol/L (136-145); Troponin-I HS 5.1 pg/mL (3.0-53.7)
[2021-06-09 20:28] LABS: Lactic Acid 0.9 mmol/L (0.4-1.9)
--- NOTE | 2021-06-09 20:28 | RAD_ITS ---
EXAM: XR CHEST, 1 VIEW : 1945 CLINICAL INDICATION: altered loc TECHNIQUE: Frontal view of the chest. This report was created using [employer] report generation technology. COMPARISON: 05/01/2021 FINDINGS: LUNGS AND PLEURAL SPACES: Unremarkable. No consolidation or edema. No pneumothorax. No effusion. HEART: Unremarkable. Cardiac silhouette not enlarged. MEDIASTINUM: Central airways and mediastinal contour are unremarkable. BONES/JOINTS: Unremarkable. SOFT TISSUES: Unremarkable. TUBES, LINES AND DEVICES: Right-sided PICC line in stable position. RAD/Chest 1 View (Portable) IMPRESSION: No acute findings in the chest. at 2103 Reported and signed by: Jorge Luis Landa MD Electronically Signed: Jorge Luis Landa MD at 21:02 EDT Tel , Service support ,
[2021-06-09 20:36] LABS: Differential Comment SCANNED
[2021-06-09 20:56] LABS: Bacteria 0 SEEN /hpf (None Seen); Mucous, Urine 0 SEEN /hpf (<or=2+); Squamous Epithelial Cells - UA 0 SEEN /hpf (5-10)
[2021-06-09 21:00] LABS: Color, Urine Yellow (Yellow); Glucose, Dipstick Normal (Normal); Ketone-Dipstick Negative (Negative); Leukocyte Esterase-Dipstick 500 /ul (Negative); Nitrite-Dipstick Negative (Negative); Occult Blood-Urine 250 /ul (Negative); Protein-Dipstick 100 mg/dl (Negative); Specific Gravity, Urine 1.015 (1.002-1.030); Urine Bilirubin Dipstick Negative (Negative); Urine Clarity Cloudy (Clear); Urine Urobilinogen 1 mg/dl (Normal); Urine pH 6.5 (5.0 - 8.0)
[2021-06-09 21:08] LABS: White Blood Cells >100 SEEN /hpf (0-5)
[2021-06-09 21:09] LABS: Calcium Oxalate Crystals Ur RARE /hpf (<or=2+); Red Blood Cells-Urine 10-25 SEEN /hpf (0-5)
[2021-06-09 21:10] LABS: Renal Epithelial Cells 0-5 SEEN /hpf (0-5); Transitional Epithelial - Ur 0-5 SEEN /hpf (0-5)
--- NOTE | 2021-06-09 23:17 | HP.PCM_ITS ---
Documented by User: Kacie Booker NP-C 06/09/21 23:44 HPI - General General Date of Admission: 06/09/21 Date of Service: 06/09/21 Chief Complaint: Altered mental status HPI Narrative ISELA CAMARENA, is a 75 F who presents for altered mental status. Patient sister is at the bedside states she saw her Monday and she was fine however today [facility] contacted her stating that patient had become more lethargic and confused. Patient currently laying in bed, mildly responsive to touch. Patient sister also concerned about red area to left abdomen and back. States she is unaware how long patient has had redness to the area. 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 Kidney calculus Morbid obesity VITA (obstructive sleep apnea) VITA (obstructive sleep apnea) Pressure ulcer of coccygeal region, stage 3 Pyonephrosis Renal calculus, bilateral Severe sepsis Ulcer of abdomen wall with fat layer exposed Ulcer of left groin with fat layer exposed UTI (urinary tract infection) due to urinary indwelling catheter V tach Home Medications pravastatin 20 mg PO QHS 12/17/18 [History Last Taken 08/06/20] venlafaxine 150 mg PO DAILY 07/02/19 [History Last Taken 08/07/20] potassium chloride 10 meq PO DAILYCM 08/18/19 [History Last Taken 08/06/20] aspirin 81 mg PO DAILY #0 [facility] 08/13/20 [Rx Last Taken Unknown] methenamine hippurate 1 gm PO BID #0 08/13/20 [Rx Last Taken 08/07/20] acetaminophen 1,000 mg PO Q6H PRN PRN tablet 02/18/21 [Rx Last Taken Unknown] baclofen 10 mg PO DAILY 04/16/21 [History Last Taken Unknown] baclofen 20 mg PO QHS 04/16/21 [History Last Taken Unknown] bisacodyl 10 mg DE DAILY PRN 04/16/21 [History Last Taken Unknown] diphenhydramine HCl 25 mg PO BID PRN PRN 04/16/21 [History Last Taken Unknown] ertapenem 1 g IM DAILY 04/16/21 [History Last Taken Unknown] gabapentin 600 mg PO BID 04/16/21 [History Last Taken Unknown] magnesium hydroxide [Milk of Magnesia] 30 ml PO DAILY PRN 04/16/21 [History Last Taken Unknown] miconazole nitrate 1 applic TOPICAL BID 04/16/21 [History Last Taken Unknown] minerals [Multi Minerals] 1 tab PO DAILY 04/16/21 [History Last Taken Unknown] omeprazole 20 mg PO DAILY 04/16/21 [History Last Taken Unknown] oxybutynin chloride 15 mg PO DAILY 04/16/21 [History Last Taken Unknown] polyethylene glycol 1 ea MISCELLANEOUS DAILY 04/16/21 [History Last Taken Unknown] sodium phosphates [Fleet Enema] 118 ml DE DAILY PRN PRN 04/16/21 [History Last Taken Unknown] Allergy/AdvReac Type Severity Reaction Status Date / Time adhesive tape Allergy blisters Verified 06/09/21 18:58 Influenza Virus Vaccines Allergy shortness Verified 06/09/21 18:58 of breath/severe wheezing iron Allergy from IV Verified 06/09/21 18:58 form chest pressure and heart palpitations Sulfa (Sulfonamide Allergy Shortness Verified 06/09/21 18:58 Antibiotics) of breath meloxicam [From Mobic] AdvReac gi upset Verified 06/09/21 18:58 seasonal allergies Allergy Other Uncoded 06/09/21 18:58 Surgical History H/O nephrostomy H/O: hysterectomy History of cholecystectomy History of tonsillectomy Hx of appendectomy Social History Smoking Status: Never smoker substance use type: does not use ROS Review of Systems ROS Unobtainable: due to mental status Vital Signs Vital Signs Vital Signs: 06/09/21 18:49 06/09/21 19:53 06/09/21 20:25 Temperature 97.8 F Temperature Source Temporal Pulse Rate 138 H 112 H 108 H Respiratory Rate 14 15 15 Blood Pressure 114/72 129/93 H 133/96 H Blood Pressure Mean 86 105 108 Pulse Ox 100 Oxygen Delivery Method Room Air Oxygen Flow Rate (L/min) 06/09/21 21:14 06/09/21 22:00 06/09/21 23:00 Temperature 98 F 98 F Temperature Source Oral Oral Pulse Rate 108 H 109 H 112 H Respiratory Rate 13 Blood Pressure 122/90 H 106/73 Blood Pressure Mean 100 84 Pulse Ox 99 100 100 Oxygen Delivery Method Nasal Cannula Nasal Cannula Nasal Cannula Oxygen Flow Rate (L/min) 2 2 2 06/09/21 23:15 Temperature 97.7 F L Temperature Source Oral Pulse Rate 98 Respiratory Rate 14 Blood Pressure 106/73 Blood Pressure Mean 84 Pulse Ox 100 Oxygen Delivery Method Nasal Cannula Oxygen Flow Rate (L/min) 2 Weight Weight: 245 lb 9.519 oz Body Mass Index (BMI) 37.3 Physical Exam Const Orientation / Consciousness: lethargic HEENT normocephalic and head/scalp atraumatic Eyes conjunctivae normal and no scleral icterus Neck supple and no JVD General: trachea midline Resp normal respiratory effort, normal air movement and clear to auscultation bilaterally Cardio regular rate, regular rhythm, S1 normal heart sound and S2 normal heart sound GI normal to inspection, nondistended, normoactive bowel sounds, soft to palpation and non-tender Inspection: erythema and ostomy present Extremity normal capillary refill and no clubbing, cyanosis or edema General Extremity: no tenderness to palpation of joints or extremities Skin General Skin Exam: turgor normal Rashes: rashes noted Left abdomen to back erythematous dry nontender Neuro Sensorium / Orientation: lethargic and obtunded Psych Speech: incoherent and slurred Results Lab / Micro Data Result Diagrams: 06/09/21 19:45 06/09/21 19:45 Labs: Laboratory Results - last 24 hr 06/09/21 19:45: WBC 5.4, RBC 3.34 L, Hgb 9.8 L, Hct 31.6 L, MCV 94.6, MCH 29.3, MCHC 31.0 L, RDW Std Deviation 53.1 H, RDW Coeff of Jessi 15.3 H, Plt Count 226, MPV 10.8, Immature Gran % (Auto) 0.400, Neut % (Auto) 83.1 H, Lymph % (Auto) 8.9 L, Fleming % (Auto) 6.8, Eos % (Auto) 0.2, Baso % (Auto) 0.6, Absolute Neuts (auto) 4.5, Absolute Lymphs (auto) 0.48 L, Nucleated RBC % 0, Differential Comment SCANNED 06/09/21 19:45: PT 14.5, INR 1.2, APTT 35.3 06/09/21 19:45: Sodium 143, Potassium 3.9, Chloride 110 H, Carbon Dioxide 28.0, Anion Gap 5, BUN 21 H, Creatinine 0.89, Estim Creat Clear Calc 55.94, Est GFR (MDRD) Af Amer 79, Est GFR (MDRD) Non-Af 66, BUN/Creatinine Ratio 23.5 H, Glucose 102, Calcium 8.0 L, Total Bilirubin 0.50, AST 21, ALT 18, Alkaline Phosphatase 102, Troponin I High Sens 5.1, Total Protein 6.3 L, Albumin 1.6 L, Globulin 4.7 H, Albumin/Globulin Ratio 0.3 L 06/09/21 19:45: Lactic Acid 0.9 06/09/21 20:50: Urine Color Yellow, Urine Clarity Cloudy, Urine pH 6.5, Ur Spec ific Emery 1.015, Urine Protein 100 H, Urine Glucose (UA) Normal, Urine Ket ones Negative, Urine Occult Blood 250 H, Urine Nitrite Negative, Urine Bilirubin Negative, Urine Urobilinogen 1 H, Ur Leukocyte Esterase 500 H, Urine RBC 10-25 SEEN, Urine WBC >100 SEEN, Ur Squamous Epith Cells 0 SEEN, Ur Transition Epith Cell 0-5 SEEN, Ur Renal Epithelial Cell 0-5 SEEN, Calcium Oxalate Crystal RARE, Urine Bacteria 0 SEEN, Urine Mucus 0 SEEN Radiology Impression Abdomen/Pelvis CT 06/09/21 19:17 IMPRESSION: 1. Placement of left-sided percutaneous nephrostomy tube. There is perinephric inflammation with bilateral renal calculi however the medical formation has decreased from the reference exam. 2. There is a right ureteral stent in place in good position. Individualized dose optimization techniques were used for this CT. at 2112 Reported and signed by: Jorge Luis Landa MD Electronically Signed: Jorge Luis Landa MD at 21:11 EDT Tel , Service support , Brain CT 06/09/21 19:18 IMPRESSION: Chronic involutional changes of the brain. Electronically Signed: Salvatore Marlow MD at 21:37 EDT , Service support , Chest X-Ray 06/09/21 20:28 IMPRESSION: No acute findings in the chest. at 2103 Reported and signed by: Jorge Luis Landa MD Electronically Signed: Jorge Luis Landa MD at 21:02 EDT Tel , Service support , Assessment & Plan Assessment/Plan (1) Encephalopathy: PLAN: 1. Encephalopathy of unknown etiology -Admit to [facility] for observation, possibly due to infection however patient has chronic UTI and urine appears unchanged from previous UA -Will check ammonia level -CBC and CMP unremarkable when compared to previous results. -Will obtain Covid test along with respiratory panel -Obtain ABG -PT and OT to eval and treat -Fall precautions ordered -Daily CBC and CMP ordered with hemoglobin A1c ordered for tomorrow 2. Possible abdominal wall cellulitis versus contact dermatitis -Vancomycin initiated in ER, will continue -Complicated by intertrigo -Will order nystatin as well for reddened moist abdominal fold -Wound nurse consulted -Every 2 hours or positioning ordered 3. Chronic UTI with nephrostomy tube and stent placement -Continue ertapenem -Continue methenamine -Strict intake and output with daily weights ordered 4. Diabetes mellitus type 2 -Currently well managed with diet -AC at bedtime blood sugars with sliding scale insulin ordered -Consult nutrition, consistent carb calorie controlled diet ordered 5.Diabetic neuropathy -Continue baclofen, gabapentin, venlafaxine. DVT prophylaxis-subcu Lovenox This patient was seen by Kacie Booker NP-Cristina under the supervision of Dr. Avendaño. Documented by User: Dr. 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 Kidney calculus Morbid obesity VITA (obstructive sleep apnea) VITA (obstructive sleep apnea) Pressure ulcer of coccygeal region, stage 3 Pyonephrosis Renal calculus, bilateral Severe sepsis Ulcer of abdomen wall with fat layer exposed Ulcer of left groin with fat layer exposed UTI (urinary tract infection) due to urinary indwelling catheter V tach Home Medications pravastatin 20 mg PO QHS 12/17/18 [History Last Taken 08/06/20] venlafaxine 150 mg PO DAILY 07/02/19 [History Last Taken 08/07/20] potassium chloride 10 meq PO DAILYCM 08/18/19 [History Last Taken 08/06/20] aspirin 81 mg PO DAILY #0 [facility] 08/13/20 [Rx Last Taken Unknown] methenamine hippurate 1 gm PO BID #0 08/13/20 [Rx Last Taken 08/07/20] acetaminophen 1,000 mg PO Q6H PRN PRN tablet 02/18/21 [Rx Last Taken Unknown] baclofen 10 mg PO DAILY 04/16/21 [History Last Taken Unknown] baclofen 20 mg PO QHS 04/16/21 [History Last Taken Unknown] bisacodyl 10 mg DE DAILY PRN 04/16/21 [History Last Taken Unknown] diphenhydramine HCl 25 mg PO BID PRN PRN 04/16/21 [History Last Taken Unknown] ertapenem 1 g IM DAILY 04/16/21 [History Last Taken Unknown] gabapentin 600 mg PO BID 04/16/21 [History Last Taken Unknown] magnesium hydroxide [Milk of Magnesia] 30 ml PO DAILY PRN 04/16/21 [History Last Taken Unknown] miconazole nitrate 1 applic TOPICAL BID 04/16/21 [History Last Taken Unknown] minerals [Multi Minerals] 1 tab PO DAILY 04/16/21 [History Last Taken Unknown] omeprazole 20 mg PO DAILY 04/16/21 [History Last Taken Unknown] oxybutynin chloride 15 mg PO DAILY 04/16/21 [History Last Taken Unknown] polyethylene glycol 1 ea MISCELLANEOUS DAILY 04/16/21 [History Last Taken Unknown] sodium phosphates [Fleet Enema] 118 ml DE DAILY PRN PRN 04/16/21 [History Last Taken Unknown] Allergy/AdvReac Type Severity Reaction Status Date / Time adhesive tape Allergy blisters Verified 06/09/21 18:58 Influenza Virus Vaccines Allergy shortness Verified 06/09/21 18:58 of breath/severe wheezing iron Allergy from IV Verified 06/09/21 18:58 form chest pressure and heart palpitations Sulfa (Sulfonamide Allergy Shortness Verified 06/09/21 18:58 Antibiotics) of breath meloxicam [From Mobic] AdvReac gi upset Verified 06/09/21 18:58 seasonal allergies Allergy Other Uncoded 06/09/21 18:58 Surgical History H/O nephrostomy H/O: hysterectomy History of cholecystectomy History of tonsillectomy Hx of appendectomy Social History Smoking Status: Never smoker substance use type: does not use Results Lab / Micro Data Result Diagrams: 06/09/21 19:45 06/09/21 19:45
[2021-06-10] VITALS (8 sets, daily range): BP systolic 93–118; BP diastolic 54–76; PULSE 89–120; RESP 16–18; TEMP 36.1–37.4; O2SAT 98–100; BMI 36.1
[2021-06-10 00:03] LABS: Procalcitonin 0.28 ng/mL (0.00-0.09)
--- NOTE | 2021-06-10 00:49 | ED.RN ---
[facility] MADE [facility]WARE OF PT'S ADMISSION & ADMITTING DIAGNOSIS.
--- NOTE | 2021-06-10 00:50 | PHA.PHARE_ITS ---
Consult Pharmacy has been consulted to manage selected antiobiotic: Vancomycin Type of Consult: New start Suspected Infection: Skin/Soft tissue Labs: Sodium 143 mmol/L (136-145) 06/09/21 19:45 Potassium 3.9 mmol/L (3.5-5.1) 06/09/21 19:45 Chloride 110 mmol/L (98-107) H 06/09/21 19:45 Carbon Dioxide 28.0 mmol/L (21.0-32.0) 06/09/21 19:45 Anion Gap 5 (5-15) 06/09/21 19:45 BUN 21 mg/dL (7-18) H 06/09/21 19:45 Creatinine 0.89 mg/dL (0.55-1.02) 06/09/21 19:45 Est GFR (MDRD) Af Amer 79 mL/min (>60) 06/09/21 19:45 Est GFR (MDRD) Non-Af 66 mL/min (>60) 06/09/21 19:45 BUN/Creatinine Ratio 23.5 RATIO (10-20) H 06/09/21 19:45 Glucose 102 mg/dL (74-106) 06/09/21 19:45 Goal Trough: 15-20 mcg/mL Pharmacy Plan for Drug Dosing: Pharmacy Service will continue to monitor and adjust dosing as required. Medications Vancomycin HCl 2,000 mg/ (Sodium Chloride) 540 mls @ 250 mls/hr IV X1 ONE Stop: 06/10/21 00:57 Last Admin: 06/09/21 23:14 Dose: 250 mls/hr Documented by: Vancomycin HCl 1,500 mg/ (Sodium Chloride) 530 mls @ 250 mls/hr IV Q12H [facility] Follow-Up Labs: Trough Vancomycin Labs to be done on [date and time ordered]: 06/11 @ 1030
[2021-06-10 01:16] LABS: Base Excess 2 mmol/L (-2 to +2); Bicarbonate 26.1 mmol/L (22-26); Blood Gas Specimen Type ART; O2 Delivery Device Cannula; PO2 131 mmHG (75-100); SITE L Radial; SO2 99 % (95-99); Total Carbon Dioxide 27 mmol/L; pCO2 39.6 mmHg (35-45); pH 7.43 (7.35-7.45)
[2021-06-10] MEDS: 0.9% Normal Saline 1,000 ML 100 ML IV ×3 (01:47→16:50)
[2021-06-10] MEDS: Nystatin Powder 15gm Bottle 1 APPLIC TOPICAL ×4 (01:48→22:52)
[2021-06-10 02:34] LABS: Magnesium 1.9 mg/dL (1.6-2.6)
[2021-06-10] MEDS: Menthol/Lanolin/Calamine/Znox 113 GM Tube 1 APPLIC TOPICAL ×3 (03:17→15:11)
[2021-06-10 05:01] LABS: Absolute Lymphocyte Count 0.55 X10^3/uL (0.83-4.51); Absolute Neutrophil Count 2.6 X10^3/uL (2.0-7.7); Basophil# 0.01 X10^3/uL; Basophil% 0.3 % (0-1); Eosinophil# 0.05 X10^3/uL; Eosinophils% 1.4 % (0-5); Hematocrit 26.7 % (37-47); Hemoglobin 8.3 g/dL (12.0-15.0); Lymphocyte # 0.55 X10^3/ul (0.83-4.51); Lymphocyte % 15.4 % (19-41); Mean Corp Hgb Conc 31.1 g/dL (32-36); Mean Corpuscular Hgb 29.3 pg (27.0-32.0); Mean Corpuscular Volume 94.3 fL (81-99); Mean Platelet Vol. 10.4 fl (6.2-12.0); Monocyte# 0.34 X10^3/uL; Monocyte% 9.5 % (0-10); NRBC Flagged by Analyzer 0 % (0-5); Neutrophil # 2.62 X10^3/uL (2.7-7.7); Neutrophil % 73.4 % (47-70); POSITIVE DIFFERENTIAL YES; Platelet Count 173 K/mm3 (150-450); RBC Distribution Width CV 15.2 % (11.6-14.6); RBC Distribution Width SD 52.5 fl (35.1-43.9); Red Blood Count 2.83 M/mm3 (4.2-5.4); White Blood Count 3.6 K/mm3 (4.4-11.0)
[2021-06-10 05:10] LABS: Differential Indicated SCAN CRITERIA MET
[2021-06-10 05:25] LABS: ALB/GLOB Ratio 0.4 RATIO (0.9-2.4); AST(SGOT) 21 U/L (15-37); Alanine Aminotransfer ALT/SGPT 18 U/L (13-56); Albumin, Serum 1.5 g/dL (3.2-5.0); Alkaline Phosphatase 90 U/L (45-117); Anion Gap 4 (5-15); BUN 22 mg/dL (7-18); BUN/Creat Ratio 27.5 RATIO (10-20); Calcium,Total 7.6 mg/dL (8.5-10.1); Chloride 112 mmol/L (98-107); EST Glomerular Filtration Rate 74 mL/min (>60); Est Glom Filt Rate - Afr Amer 90 mL/min (>60); Estimated Creatinine Clearance 62.24 ml/min; Globulin 4.1 g/dL (2.2-4.2); Glucose 88 mg/dL (74-106); Potassium 3.9 mmol/L (3.5-5.1); Protein, Total 5.6 g/dL (6.4-8.2); Sodium Level 143 mmol/L (136-145)
[2021-06-10 08:37] LABS: Hemoglobin A1c < 3.8 % (3.8-5.6)
--- NOTE | 2021-06-10 10:18 | CASEMGMT ---
Addendum entered by Asya Acosta 06/10/21 10:24: SW received call from pt's sister Esperanza confirming pt came from [facility] and pt will be returning there at discharge. Original Note: Social Work Note Pt is listed as being from [facility]. SW in to speak with pt. Pt only answering questions with yes at this time. Pt does state yes in regards to returning to [facility]. SW reviewed chart. Pt's sister Esperanza is HCPOA. ELIAS placed a call to Esperanza and left message requesting call back. ELIAS placed a call to Adrianna at [facility]. Pt is skilled and is able to return skilled when medically cleared. ELIAS faxed updated clinicals to [facility]. Plan: Return to [facility] when medically cleared Asya Acosta OPHTHALMOLOGY TECHNICIAN, MIX [employer]
[2021-06-10 10:35] LABS: Bedside Glucose 88 mg/dL (70-110)
--- NOTE | 2021-06-10 11:11 | NURSING ---
PER DRE [facility] - THEY HAVE NO DATE DOCUMENTED WHEN SP CATHETER WAS LAST CHANGED
[2021-06-10] MEDS: Enoxaparin 40 MG/0.4 ML Syringe SC (11:31)
[2021-06-10] MEDS: Aspirin 81 MG TAB.CHEW PO ×2 (11:32)
[2021-06-10] MEDS: Gabapentin 600 MG Tablet PO ×2 (11:33)
[2021-06-10] MEDS: FLUCONAZOLE 150 MG TABLET PO (11:36)
[2021-06-10] MEDS: Tolterodine Tartrate 4 MG CAP.SA PO ×2 (11:36)
[2021-06-10] MEDS: Pantoprazole Sodium 20 MG Tablet PO ×2 (11:37)
[2021-06-10] MEDS: Baclofen 10 MG Tablet PO ×3 (11:37→22:55)
--- NOTE | 2021-06-10 11:59 | PCM.PN.HOSP ---
Documented by User: Latonya Ivy MACHINE OPERATOR HOP WORKER, MACHINE OPERATOR HOP WORKER-C 06/10/21 12:35 Subjective Subjective Patient seen and examined. Nursing at bedside. Patient remains confused, intermittently complaining of pain during turning. Skin under abdomen and breast with significant excoriation. Objective Data Objective Data Vital Signs: Vital Signs Temp Pulse Resp BP Pulse Ox 97 F L 100 16 98/72 100 06/10/21 03:38 06/10/21 03:38 06/10/21 03:38 06/10/21 03:38 06/10/21 03:38 Oxygen Flow Rate (L/min) 2 Oxygen Delivery Method Room Air Weight: 237 lb 10.533 oz Body Mass Index (BMI) 36.1 Intake & Output: Intake and Output for Last 24 Hours 06/08/21 06/09/21 06/10/21 23:59 23:59 23:59 Intake Total 1904.17 / 1904.17 Output Total 330 / 330 Balance 1574.17 / 1574.17 Medical Nutrition Assessment Dietitian: Nutrition Therapy Diagnosis Start: 06/10/21 11:09 Freq: Status: Active Protocol: Document 06/10/21 11:49 BP (Rec: 06/10/21 11:50 BP [id number]) Nutrition Malnutrition Evidence of Malnutrition Exists No Intake Problem Increased Nutrient Needs (specify) Etiology protein related to wound healing Signs/Symptoms as evidenced by coccyx & left thigh pressure injury, left great toe abrasion. Status Active Problem Clinical Problem Unintended Weight Loss Etiology related to predicted suboptimal energy intake Signs/Symptoms as evidenced by 11% wt loss x 2 months. 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 Continue glucerna 120 ml 4x/ day w/ medpass. Will provide John 1 pkt BID to promote wound healing Lab / Micro Data Result Diagrams: 06/10/21 04:52 06/10/21 04:52 Labs: Laboratory Results - last 24 hr 06/09/21 19:45: WBC 5.4, RBC 3.34 L, Hgb 9.8 L, Hct 31.6 L, MCV 94.6, MCH 29.3, MCHC 31.0 L, RDW Std Deviation 53.1 H, RDW Coeff of Jessi 15.3 H, Plt Count 226, MPV 10.8, Immature Gran % (Auto) 0.400, Neut % (Auto) 83.1 H, Lymph % (Auto) 8.9 L, [place] % (Auto) 6.8, Eos % (Auto) 0.2, Baso % (Auto) 0.6, Absolute Neuts (auto) 4.5, Absolute Lymphs (auto) 0.48 L, Nucleated RBC % 0, Differential Comment SCANNED 06/09/21 19:45: PT 14.5, INR 1.2, APTT 35.3 06/09/21 19:45: Sodium 143, Potassium 3.9, Chloride 110 H, Carbon Dioxide 28.0, Anion Gap 5, BUN 21 H, Creatinine 0.89, Estim Creat Clear Calc 55.94, Est GFR (MDRD) Af Amer 79, Est GFR (MDRD) Non-Af 66, BUN/Creatinine Ratio 23.5 H, Glucose 102, Calcium 8.0 L, Total Bilirubin 0.50, AST 21, ALT 18, Alkaline Phosphatase 102, Troponin I High Sens 5.1, Total Protein 6.3 L, Albumin 1.6 L, Globulin 4.7 H, Albumin/Globulin Ratio 0.3 L 06/09/21 19:45: Lactic Acid 0.9 06/09/21 19:45: Magnesium 1.9 06/09/21 20:50: Urine Color Yellow, Urine Clarity Cloudy, Urine pH 6.5, Ur Specific [place] 1.015, Urine Protein 100 H, Urine Glucose (UA) Normal, Urine Ketones Negative, Urine Occult Blood 250 H, Urine Nitrite Negative, Urine Bilirubin Negative, Urine Urobilinogen 1 H, Ur Leukocyte Esterase 500 H, Urine RBC 10-25 SEEN, Urine WBC >100 SEEN, Ur Squamous Epith Cells 0 SEEN, Ur Transition Epith Cell 0-5 SEEN, Ur Renal Epithelial Cell 0-5 SEEN, Calcium Oxalate Crystal RARE, Urine Bacteria 0 SEEN, Urine Mucus 0 SEEN 06/09/21 23:30: Procalcitonin 0.28 H 06/10/21 04:52: Ammonia 40.0 H 06/10/21 04:52: WBC 3.6 L, RBC 2.83 L, Hgb 8.3 L, Hct 26.7 L, MCV 94.3, MCH 29.3, MCHC 31.1 L, RDW Std Deviation 52.5 H, RDW Coeff of Jessi 15.2 H, Plt Count 173, MPV 10.4, Immature Gran % (Auto) 0.000, Neut % (Auto) 73.4 H, Lymph % (Auto) 15.4 L, [place] % (Auto) 9.5, Eos % (Auto) 1.4, Baso % (Auto) 0.3, Absolute Neuts (auto) 2.6, Absolute Lymphs (auto) 0.55 L, Nucleated RBC % 0, Diff Path Review March06/10/21 04:52: Sodium 143, Potassium 3.9, Chloride 112 H, Carbon Dioxide 27.0, Anion Gap 4 L, BUN 22 H, Creatinine 0.80, Estim Creat Clear Calc 62.24, Est GFR (MDRD) Af Amer 90, Est GFR (MDRD) Non-Af 74, BUN/Creatinine Ratio 27.5 H, Glucose 88, Calcium 7.6 L, Total Bilirubin 0.40, AST 21, ALT 18, Alkaline Phosphatase 90, Total Protein 5.6 L, Albumin 1.5 L, Globulin 4.1, Albumin/Globulin Ratio 0.4 L 06/10/21 04:52: Hemoglobin A1c < 3.8 L 06/10/21 06:15: POC Glucose 88 Micro: Microbiology 06/10/21 00:58 Mucosa - Nasopharyngeal Respiratory Panel (PCR) - Final 06/10/21 01:55 Mucosa - Nose SARS-CoV-2 Antigen (Rapid) - Final ABG Data ABG results: ABG 06/10/21 01:11 Specimen Type ART Sample Site L Radial pH 7.43 Bicarbonate Actual 26.1 H Total CO2 27 Base Excess 2 O2 Saturation 99 ABG pCO2 39.6 ABG pO2 131 H Baljinder Test N/A O2 Delivery Device Cannula Liter Flow 2.0 Radiography Diagnostic Testing: Radiology Impression Abdomen/Pelvis CT 06/09/21 19:17 IMPRESSION: 1. Placement of left-sided percutaneous nephrostomy tube. There is perinephric inflammation with bilateral renal calculi however the medical formation has decreased from the reference exam. 2. There is a right ureteral stent in place in good position. Individualized dose optimization techniques were used for this CT. at 2112 Reported and signed by: Jorge Luis Landa MD Electronically Signed: Jorge Luis Landa MD at 21:11 EDT Tel , Service support , Brain CT 06/09/21 19:18 IMPRESSION: Chronic involutional changes of the brain. Electronically Signed: Salvatore Marlow MD at 21:37 EDT , Service support , Chest X-Ray 06/09/21 20:28 IMPRESSION: No acute findings in the chest. at 2103 Reported and signed by: Jorge Luis Landa MD Electronically Signed: Jorge Luis Landa MD at 21:02 EDT Tel , Service support , Physical Exam Const no apparent distress Orientation / Consciousness: confused Nutritional Appearance: obese HEENT normocephalic and moist oral mucous membranes Eyes PERRL, EOMs intact bilaterally and conjunctivae normal Neck no lymphadenopathy Resp clear to auscultation bilaterally Auscultation: diminished lung sounds Cardio regular rate, regular rhythm and no murmurs Peripheral Pulses: pulses 2+ throughout GI normal to inspection, nondistended, normoactive bowel sounds, non-tender and non-distended GI Narrative: Obese Extremity normal to inspection Extremity Narrative: Chronic functional paraplegia Skin no rashes or lesions noted Skin Narrative: Abdominal skin fold intertrigo with significant excoriation and erythema, erythema under bilateral breasts. Lesions: no lesions Rashes: no rashes Trauma: no lacerations or abrasions Neuro CN's II-XII intact bilaterally, no focal motor deficits, no sensory deficits noted and deep tendon reflexes 2+ bilaterally Psych mental status grossly normal and affect normal Assessment & Plan Assessment/Plan (1) Encephalopathy: PLAN: 1. Acute encephalopathy, possibly infectious encephalopathy secondary to abdominal cellulitis versus UTI-urine and blood cultures pending. On IV ertapenem. Add IV vancomycin pending cultures. ID consult. 2. Recent complicated UTI-status post nephrostomy tube placement and ureteral stents. On IV ertapenem, PICC line in place. Consult urology. 3. Remarkable abdominal fold and breast area intertrigo-topical nystatin. Keep area clean and dry. Patient received 4. Type 2 diabetes mellitus-hemoglobin A1c less than 3.8%? Discontinue Accu-Cheks. 5. Hypertension-not on regimen. As needed hydralazine for elevated blood pressure. 6. Hyperlipidemia-continue statin. 7. Paroxysmal atrial fibrillation-not on anticoagulation or rate limiting regimen. 8. Morbid obesity-encouraged diet and lifestyle modifications. 9. Anxiety/Depression- on venlafaxine. 10. VITA-continue PAP therapy. 11. Chronic normocytic anemia-at baseline. DVT prophylaxis-Lovenox subcu This patient was seen by DEDRICK Simmons under the supervision of Dr. العلي. Documented by User: Dr. Lauro العلي MD 06/10/21 16:47 Subjective Subjective Patient has pain all over mainly over her back and lower legs. She had also has skin excoriation over the back with erythema around abdominal folds of his skin and groin She has wound in the sacral region present on admission, stable Objective Data Lab / Micro Data Result Diagrams: 06/10/21 04:52 06/10/21 04:52 Physical Exam Narrative General: Alert, Oriented x3, Cooperative HEENT: Atraumatic, PERRLA, EOMI, Normocephalic Oral: No Gingival or Mucosal Lesions/ Ulcerations Neck: Supple, No JVD, Negative Carotid Bruits Lungs: Air entry diminished in bilateral lung bases. No crepitation/rhonchi Cardiovascular: Regular rate, Regular Rhythm, Normal S1, Normal S2, No murmurs Abdomen: Bowel Sounds Present, Soft, Non Tender, Non-Distended : Suprapubic catheter. No renal angle tenderness. No suprapubic tenderness. Extremities: Bilateral leg edema, Capillary Refill Less than 3 Seconds Skin: Decubitus ulcer over back. Unstageable. Intertriginous rash over the abdominal fold and groin Musculoskeletal: Tenderness to Palpation of Joints or Extremities. ROM restricted Neurological: Cranial nerves II-XII grossly intact, Deep Tendon Reflexes 2+/4 and Symmetrical, Neuro grossly intact Psych/Mental Status: Normal Affect, Appropriate. Assessment & Plan Assessment/Plan (1) Encephalopathy: (2) Cellulitis of left abdominal wall: PLAN: This patient was seen in conjunction with Latonya KOO. I have independently interviewed and examined the patient and reviewed pertinent history, examination findings, laboratory and plan of management. I have reviewed the note and agree with the documented findings with the few additional points. In brief, patient is admitted for acute encephalopathy for several days with confusion, inattentive. Patient also has complicated UTI. Patient was recently evaluated [facility] and had left sided nephrostomy tube and right ureteral stent for staghorn calculus and history of recurrent UTI CT abdomen shows left-sided perinephric inflammation with no hydronephrosis. Left-sided percutaneous nephrostomy and bilateral renal calculi. Urologist Dr. Pink's case been consulted. ID consult reviewed and appreciated. Patient is on IV meropenem and linezolid with history of Pseudomonas and VRE. Wound care nurse has been consulted for unstable sacral decubitus ulcer Other multiple comorbidities as mentioned above I have discussed my assessment with Latonya KOO and orders have been reviewed. Total time of the visit including total time spent in counseling or coordination of care, (more than 50% of the total time, spent in obtaining medical information from nurses and other ancillary care providers,explaining to the patient about labs, imaging, diagnosis and management), discussion with different consultants, review of labs and imaging is 30 minutes. Charges/Coding Visit Charges Inpatient E&M: 68894 Subs Hosp L3
[2021-06-10 12:11] LABS: Bedside Glucose 85 mg/dL (70-110)
[2021-06-10 13:37] LABS: Pathologist Review Reviewed
--- NOTE | 2021-06-10 14:20 | CON.PCM.ID_ITS ---
Assessment & Plan Assessment/Plan (1) Encephalopathy: PLAN: Concern for uti, cellulitis. Recent h/o pseudomonas and VRE, will change abx to linezolid/meropenem. Will follow, thank you, d/w primary team (2) Cellulitis of left abdominal wall: HPI Consult Data Date of Consult: 06/10/21 HPI Narrative HPI Narrative: ISELA CAMARENA, is a 75 F F resident, h/o DM, obesity, presented with several days confusion, not feeling well. Pt unable to provide much history. Denies cough/SOB, no abd pain, no n/v/d. Sister reported rash on admit. Admitted on vanc/ertapenem. Full ROS performed and neg except as noted above. [facility] Medical History Acute pyelonephritis Anxiety and depression Asthma Candidal intertrigo Debility DM2 (diabetes mellitus, type 2) Essential hypertension GERD (gastroesophageal reflux disease) Heart failure History of atrial fibrillation HLD (hyperlipidemia) Hydronephrosis due to obstruction of ureter Kidney calculus Morbid obesity VITA (obstructive sleep apnea) VITA (obstructive sleep apnea) Pressure ulcer of coccygeal region, stage 3 Pyonephrosis Renal calculus, bilateral Severe sepsis Ulcer of abdomen wall with fat layer exposed Ulcer of left groin with fat layer exposed UTI (urinary tract infection) due to urinary indwelling catheter V tach Home Medications pravastatin 20 mg PO QHS 12/17/18 [History Last Taken 08/06/20] venlafaxine 150 mg PO DAILY 07/02/19 [History Last Taken 08/07/20] potassium chloride 10 meq PO DAILYCM 08/18/19 [History Last Taken 08/06/20] aspirin 81 mg PO DAILY #0 [facility] 08/13/20 [Rx Last Taken Unknown] methenamine hippurate 1 gm PO BID #0 08/13/20 [Rx Last Taken 08/07/20] acetaminophen 1,000 mg PO Q6H PRN PRN tablet 02/18/21 [Rx Last Taken Unknown] baclofen 10 mg PO DAILY 04/16/21 [History Last Taken Unknown] baclofen 20 mg PO QHS 04/16/21 [History Last Taken Unknown] bisacodyl 10 mg MD DAILY PRN 04/16/21 [History Last Taken Unknown] diphenhydramine HCl 25 mg PO BID PRN PRN 04/16/21 [History Last Taken Unknown] ertapenem 1 g IM DAILY 04/16/21 [History Last Taken Unknown] gabapentin 600 mg PO BID 04/16/21 [History Last Taken Unknown] magnesium hydroxide [Milk of Magnesia] 30 ml PO DAILY PRN 04/16/21 [History Last Taken Unknown] miconazole nitrate 1 applic TOPICAL BID 04/16/21 [History Last Taken Unknown] minerals [Multi Minerals] 1 tab PO DAILY 04/16/21 [History Last Taken Unknown] omeprazole 20 mg PO DAILY 04/16/21 [History Last Taken Unknown] oxybutynin chloride 15 mg PO DAILY 04/16/21 [History Last Taken Unknown] polyethylene glycol 1 ea MISCELLANEOUS DAILY 04/16/21 [History Last Taken Unknown] sodium phosphates [Fleet Enema] 118 ml MD DAILY PRN PRN 04/16/21 [History Last Taken Unknown] Allergy/AdvReac Type Severity Reaction Status Date / Time adhesive tape Allergy blisters Verified 06/09/21 18:58 Influenza Virus Vaccines Allergy shortness Verified 06/09/21 18:58 of breath/severe wheezing iron Allergy from IV Verified 06/09/21 18:58 form chest pressure and heart palpitations Sulfa (Sulfonamide Allergy Shortness Verified 06/09/21 18:58 Antibiotics) of breath meloxicam [From Mobic] AdvReac gi upset Verified 06/09/21 18:58 seasonal allergies Allergy Other Uncoded 06/09/21 18:58 Surgical History H/O nephrostomy H/O: hysterectomy History of cholecystectomy History of tonsillectomy Hx of appendectomy Social History Smoking Status: Never smoker substance use type: does not use Physical Exam Const no apparent distress Orientation / Consciousness: confused HEENT normocephalic and head/scalp atraumatic Eyes PERRL Neck supple and No nodes Resp normal air movement and clear to auscultation bilaterally Cardio regular rate and regular rhythm GI normal to inspection, nondistended, normoactive bowel sounds Extremity General Extremity: edema Skin Skin Narrative: rash on abd Neuro CN's II-XII intact bilaterally Medical Records Data Medical Nutrition Assessment Dietitian: Nutrition Therapy Diagnosis Start: 06/10/21 11:09 Freq: Status: Active Protocol: Document 06/10/21 11:49 BP (Rec: 06/10/21 11:50 BP [id number]) Nutrition Malnutrition Evidence of Malnutrition Exists No Intake Problem Increased Nutrient Needs (specify) Etiology protein related to wound healing Signs/Symptoms as evidenced by coccyx & left thigh pressure injury, left great toe abrasion. Status Active Problem Clinical Problem Unintended Weight Loss Etiology related to predicted suboptimal energy intake Signs/Symptoms as evidenced by 11% wt loss x 2 months. 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 Continue glucerna 120 ml 4x/ day w/ medpass. Will provide John 1 pkt BID to promote wound healing Lab / Micro Data Result Diagrams: 06/10/21 04:52 06/10/21 04:52 Labs: Laboratory Results - last 24 hr 06/09/21 19:45: WBC 5.4, RBC 3.34 L, Hgb 9.8 L, Hct 31.6 L, MCV 94.6, MCH 29.3, MCHC 31.0 L, RDW Std Deviation 53.1 H, RDW Coeff of Jessi 15.3 H, Plt Count 226, MPV 10.8, Immature Gran % (Auto) 0.400, Neut % (Auto) 83.1 H, Lymph % (Auto) 8.9 L, [place] % (Auto) 6.8, Eos % (Auto) 0.2, Baso % (Auto) 0.6, Absolute Neuts (auto) 4.5, Absolute Lymphs (auto) 0.48 L, Nucleated RBC % 0, Differential Comment SCANNED 06/09/21 19:45: PT 14.5, INR 1.2, APTT 35.3 06/09/21 19:45: Sodium 143, Potassium 3.9, Chloride 110 H, Carbon Dioxide 28.0, Anion Gap 5, BUN 21 H, Creatinine 0.89, Estim Creat Clear Calc 55.94, Est GFR (MDRD) Af Amer 79, Est GFR (MDRD) Non-Af 66, BUN/Creatinine Ratio 23.5 H, Glucose 102, Calcium 8.0 L, Total Bilirubin 0.50, AST 21, ALT 18, Alkaline Phosphatase 102, Troponin I High Sens 5.1, Total Protein 6.3 L, Albumin 1.6 L, Globulin 4.7 H, Albumin/Globulin Ratio 0.3 L 06/09/21 19:45: Lactic Acid 0.9 06/09/21 19:45: Magnesium 1.9 06/09/21 20:50: Urine Color Yellow, Urine Clarity Cloudy, Urine pH 6.5, Ur Specific [place] 1.015, Urine Protein 100 H, Urine Glucose (UA) Normal, Urine Ketones Negative, Urine Occult Blood 250 H, Urine Nitrite Negative, Urine Bilirubin Negative, Urine Urobilinogen 1 H, Ur Leukocyte Esterase 500 H, Urine RBC 10-25 SEEN, Urine WBC >100 SEEN, Ur Squamous Epith Cells 0 SEEN, Ur Transition Epith Cell 0-5 SEEN, Ur Renal Epithelial Cell 0-5 SEEN, Calcium Oxalate Crystal RARE, Urine Bacteria 0 SEEN, Urine Mucus 0 SEEN 06/09/21 23:30: Procalcitonin 0.28 H 06/10/21 04:52: Ammonia 40.0 H 06/10/21 04:52: WBC 3.6 L, RBC 2.83 L, Hgb 8.3 L, Hct 26.7 L, MCV 94.3, MCH 29.3, MCHC 31.1 L, RDW Std Deviation 52.5 H, RDW Coeff of Jessi 15.2 H, Plt Count 173, MPV 10.4, Immature Gran % (Auto) 0.000, Neut % (Auto) 73.4 H, Lymph % (Auto) 15.4 L, [place] % (Auto) 9.5, Eos % (Auto) 1.4, Baso % (Auto) 0.3, Absolute Neuts (auto) 2.6, Absolute Lymphs (auto) 0.55 L, Nucleated RBC % 0, Diff Path Review Reviewed 06/10/21 04:52: Sodium 143, Potassium 3.9, Chloride 112 H, Carbon Dioxide 27.0, Anion Gap 4 L, BUN 22 H, Creatinine 0.80, Estim Creat Clear Calc 62.24, Est GFR (MDRD) Af Amer 90, Est GFR (MDRD) Non-Af 74, BUN/Creatinine Ratio 27.5 H, Glucose 88, Calcium 7.6 L, Total Bilirubin 0.40, AST 21, ALT 18, Alkaline Phosphatase 90, Total Protein 5.6 L, Albumin 1.5 L, Globulin 4.1, Albumin/Globulin Ratio 0.4 L 06/10/21 04:52: Hemoglobin A1c < 3.8 L 06/10/21 06:15: POC Glucose 88 06/10/21 11:45: POC Glucose 85 Micro: Microbiology 06/09/21 20:50 Urine, Nephrostomy Urine Culture - Preliminary Gram negative odin 06/10/21 00:58 Mucosa - Nasopharyngeal Respiratory Panel (PCR) - Final 06/10/21 01:55 Mucosa - Nose SARS-CoV-2 Antigen (Rapid) - Final ABG Data ABG results: ABG 06/10/21 01:11 Specimen Type ART Sample Site L Radial pH 7.43 Bicarbonate Actual 26.1 H Total CO2 27 Base Excess 2 O2 Saturation 99 ABG pCO2 39.6 ABG pO2 131 H Baljinder Test N/A O2 Delivery Device Cannula Liter Flow 2.0 Radiology Impression Abdomen/Pelvis CT 06/09/21 19:17 IMPRESSION: 1. Placement of left-sided percutaneous nephrostomy tube. There is perinephric inflammation with bilateral renal calculi however the medical formation has decreased from the reference exam. 2. There is a right ureteral stent in place in good position. Individualized dose optimization techniques were used for this CT. at 2112 Reported and signed by: Jorge Luis Landa MD Electronically Signed: Jorge Luis Landa MD at 21:11 EDT Tel , Service support , Brain CT 06/09/21 19:18 IMPRESSION: Chronic involutional changes of the brain. Electronically Signed: Salvatore Marlow MD at 21:37 EDT , Service support , Chest X-Ray 06/09/21 20:28 IMPRESSION: No acute findings in the chest. at 2103 Reported and signed by: Jorge Luis Landa MD Electronically Signed: Jorge Luis Landa MD at 21:02 EDT Tel , Service support ,
[2021-06-10] MEDS: Linezolid 600 MG Tablet PO ×2 (15:08→22:55)
[2021-06-10] MEDS: Glucerna Shake 120 ML LIQUID PO ×3 (15:13→22:54)
[2021-06-10] MEDS: Acetaminophen 325 MG Tablet 650 MG PO (16:45)
[2021-06-10 16:46] LABS: Bedside Glucose 82 mg/dL (70-110)
[2021-06-10] MEDS: Methenamine Hippurate 1 GM Tablet PO (22:54)
[2021-06-10] MEDS: Pravastatin 20 MG Tablet PO (22:55)
[2021-06-11] MEDS: 0.9% Normal Saline 1,000 ML 100 ML IV ×3 (03:15→21:51)
[2021-06-11 04:00] VITALS: BP 112/67; PULSE 104; RESP 16; TEMP 36.3; O2SAT 99
[2021-06-11] MEDS: Nystatin Powder 15gm Bottle 1 APPLIC TOPICAL ×3 (06:12→21:50)
[2021-06-11 07:15] LABS: Absolute Lymphocyte Count 0.63 X10^3/uL (0.83-4.51); Absolute Neutrophil Count 3.7 X10^3/uL (2.0-7.7); Basophil# 0.04 X10^3/uL; Basophil% 0.8 % (0-1); Eosinophil# 0.06 X10^3/uL; Eosinophils% 1.2 % (0-5); Hematocrit 33.8 % (37-47); Hemoglobin 10.4 g/dL (12.0-15.0); Lymphocyte # 0.63 X10^3/ul (0.83-4.51); Lymphocyte % 12.5 % (19-41); Mean Corp Hgb Conc 30.8 g/dL (32-36); Mean Corpuscular Hgb 27.8 pg (27.0-32.0); Mean Corpuscular Volume 90.4 fL (81-99); Monocyte# 0.56 X10^3/uL; Monocyte% 11.1 % (0-10); NRBC Flagged by Analyzer 0 % (0-5); Neutrophil # 3.74 X10^3/uL (2.7-7.7); Platelet Count 189 K/mm3 (150-450); RBC Distribution Width SD 56.3 fl (35.1-43.9); Red Blood Count 3.74 M/mm3 (4.2-5.4); White Blood Count 5.1 K/mm3 (4.4-11.0)
[2021-06-11 07:38] LABS: Anion Gap 5 (5-15); BUN 21 mg/dL (7-18); Calcium,Total 8.1 mg/dL (8.5-10.1); Chloride 111 mmol/L (98-107); Creatinine, Serum 0.78 mg/dL (0.55-1.02); EST Glomerular Filtration Rate 77 mL/min (>60); Est Glom Filt Rate - Afr Amer 93 mL/min (>60); Estimated Creatinine Clearance 49.79 ml/min; Glucose 106 mg/dL (74-106); Sodium Level 137 mmol/L (136-145)
--- NOTE | 2021-06-11 07:42 | PCM.CONS.GEN ---
Assessment & Plan Assessment/Plan (1) Urinary retention: PLAN: Suprapubic catheter has been changed Patient will follow up with [place] [facility] group for further management Continue treatment of cellulitis per primary team and infectious disease Please call with issues (2) Complicated urinary tract infection: HPI Consult Data Date of Consult: 06/11/21 HPI Narrative HPI Narrative: ISELA CAMARENA, is a 75 F who presents with cellulitis. She has an indwelling suprapubic tube that needs to be changed and I am consulted for this change. She already has scheduled urologic care in [place] for June 14. 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 Kidney calculus Morbid obesity VITA (obstructive sleep apnea) VITA (obstructive sleep apnea) Pressure ulcer of coccygeal region, stage 3 Pyonephrosis Renal calculus, bilateral Severe sepsis Ulcer of abdomen wall with fat layer exposed Ulcer of left groin with fat layer exposed UTI (urinary tract infection) due to urinary indwelling catheter V tach Home Medications pravastatin 20 mg PO QHS 12/17/18 [History Last Taken 08/06/20] venlafaxine 150 mg PO DAILY 07/02/19 [History Last Taken 08/07/20] potassium chloride 10 meq PO DAILYCM 08/18/19 [History Last Taken 08/06/20] aspirin 81 mg PO DAILY #0 [facility] 08/13/20 [Rx Last Taken Unknown] methenamine hippurate 1 gm PO BID #0 08/13/20 [Rx Last Taken 08/07/20] acetaminophen 1,000 mg PO Q6H PRN PRN tablet 02/18/21 [Rx Last Taken Unknown] baclofen 10 mg PO DAILY 04/16/21 [History Last Taken Unknown] baclofen 20 mg PO QHS 04/16/21 [History Last Taken Unknown] bisacodyl 10 mg VT DAILY PRN 04/16/21 [History Last Taken Unknown] diphenhydramine HCl 25 mg PO BID PRN PRN 04/16/21 [History Last Taken Unknown] ertapenem 1 g IM DAILY 04/16/21 [History Last Taken Unknown] gabapentin 600 mg PO BID 04/16/21 [History Last Taken Unknown] magnesium hydroxide [Milk of Magnesia] 30 ml PO DAILY PRN 04/16/21 [History Last Taken Unknown] miconazole nitrate 1 applic TOPICAL BID 04/16/21 [History Last Taken Unknown] minerals [Multi Minerals] 1 tab PO DAILY 04/16/21 [History Last Taken Unknown] omeprazole 20 mg PO DAILY 04/16/21 [History Last Taken Unknown] oxybutynin chloride 15 mg PO DAILY 04/16/21 [History Last Taken Unknown] polyethylene glycol 1 ea MISCELLANEOUS DAILY 04/16/21 [History Last Taken Unknown] sodium phosphates [Fleet Enema] 118 ml VT DAILY PRN PRN 04/16/21 [History Last Taken Unknown] Allergy/AdvReac Type Severity Reaction Status Date / Time adhesive tape Allergy blisters Verified 06/09/21 18:58 Influenza Virus Vaccines Allergy shortness Verified 06/09/21 18:58 of breath/severe wheezing iron Allergy from IV Verified 06/09/21 18:58 form chest pressure and heart palpitations Sulfa (Sulfonamide Allergy Shortness Verified 06/09/21 18:58 Antibiotics) of breath meloxicam [From Mobic] AdvReac gi upset Verified 06/09/21 18:58 seasonal allergies Allergy Other Uncoded 06/09/21 18:58 Surgical History H/O nephrostomy H/O: hysterectomy History of cholecystectomy History of tonsillectomy Hx of appendectomy Social History Smoking Status: Never smoker substance use type: does not use ROS ROS Narrative No specific complaints this morning. Physical Exam Const alert, oriented x3 and no apparent distress HEENT normocephalic and head/scalp atraumatic Eyes General Eye: normal appearance of both eyes Neck supple General: trachea midline Lymph Lymphatic: no lymphedema noted Chest inspection of chest normal Chest: symmetrical chest wall rise Resp normal respiratory effort, normal air movement and no retractions Cardio regular rate GI soft to palpation, non-tender and non-distended GI Narrative: Suprapubic tube site with clean dressing and no evidence of infection, no erythema or drainage. The suprapubic tube is a 24 Romanian three-way catheter with a makeshift clamp secondary to leaking from the input port Narrative: Indwelling suprapubic catheter removed after draining the balloon of 30 cc of fluid. The suprapubic tube site was cleansed with Betadine and lubricant was inserted using the syringe from the Henry kit. The new 24 Romanian catheter was inserted to straight drain and 30 cc was placed into the balloon. There were no difficulties or complications. The patient tolerated the procedure well. Extremity Extremity Narrative: Paralysis of lower extremities Skin no rashes or lesions noted, no jaundice, no petechiae and no mottling Neuro oriented x3 and CN's II-XII intact bilaterally Psych mental status grossly normal, thought process normal and cooperative Medical Records Data Medical Nutrition Assessment Dietitian: Nutrition Therapy Diagnosis Start: 06/10/21 11:09 Freq: Status: Active Protocol: Document 06/10/21 11:49 BP (Rec: 06/10/21 11:50 BP [id number]) Nutrition Malnutrition Evidence of Malnutrition Exists No Intake Problem Increased Nutrient Needs (specify) Etiology protein related to wound healing Signs/Symptoms as evidenced by coccyx & left thigh pressure injury, left great toe abrasion. Status Active Problem Clinical Problem Unintended Weight Loss Etiology related to predicted suboptimal energy intake Signs/Symptoms as evidenced by 11% wt loss x 2 months. 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 Continue glucerna 120 ml 4x/ day w/ medpass. Will provide John 1 pkt BID to promote wound healing Lab / Micro Data Result Diagrams: 06/11/21 07:00 06/11/21 07:00 Labs: Laboratory Results - last 24 hr 06/10/21 04:52: Diff Path Review Reviewed 06/10/21 04:52: Hemoglobin A1c < 3.8 L 06/10/21 06:15: POC Glucose 88 06/10/21 11:45: POC Glucose 85 06/10/21 16:41: POC Glucose 82 06/11/21 07:00: WBC 5.1, RBC 3.74 L, Hgb 10.4 L, Hct 33.8 L, MCV 90.4, MCH 27.8, MCHC 30.8 L, RDW Std Deviation 56.3 H, RDW Coeff of Jessi 17.0 H, Plt Count 189, MPV 10.0, Immature Gran % (Auto) 0.400, Neut % (Auto) 74.0 H, Lymph % (Auto) 12.5 L, [place] % (Auto) 11.1 H, Eos % (Auto) 1.2, Baso % (Auto) 0.8, Absolute Neuts (auto) 3.7, Absolute Lymphs (auto) 0.63 L, Nucleated RBC % 0 06/11/21 07:00: Sodium 137, Potassium 4.0, Chloride 111 H, Carbon Dioxide 21.0, Anion Gap 5, BUN 21 H, Creatinine 0.78, Estim Creat Clear Calc 49.79, Est GFR (MDRD) Af Amer 93, Est GFR (MDRD) Non-Af 77, BUN/Creatinine Ratio 27.0 H, Glucose 106, Calcium 8.1 L Micro: Microbiology 06/09/21 20:44 Blood Culture (Wb) - Left Hand Blood Culture - Preliminary 06/09/21 20:50 Urine, Nephrostomy Urine Culture - Preliminary Gram negative odin 06/10/21 00:58 Mucosa - Nasopharyngeal Respiratory Panel (PCR) - Final
[2021-06-11 07:50] VITALS: O2SAT 97
[2021-06-11] MEDS: Venlafaxine XR 150 MG Capsule PO (08:36)
[2021-06-11] MEDS: Enoxaparin 40 MG/0.4 ML Syringe SC (08:37)
[2021-06-11] MEDS: Gabapentin 600 MG Tablet PO ×2 (08:37→22:02)
[2021-06-11] MEDS: Linezolid 600 MG Tablet PO ×2 (08:37→22:02)
[2021-06-11] MEDS: Glucerna Shake 120 ML LIQUID PO ×4 (08:41→21:50)
[2021-06-11] MEDS: Methenamine Hippurate 1 GM Tablet PO ×2 (09:03→22:02)
[2021-06-11 09:04] VITALS: BP 119/73; PULSE 74; RESP 18; TEMP 36.8; O2SAT 98
--- NOTE | 2021-06-11 10:23 | CASEMGMT ---
Addendum entered by Asya Acosta 06/11/21 10:44: Clinicals faxed to [facility]. Original Note: Social Work Note SW in to speak with pt. Pt is now alert and orientated x3. Pt knows place, person, somewhat time. Pt knew it was year 2020 but couldn't remember month. Pt confirms she came from [facility] and plan is to return. Pt states she was supposed to have surgery in [place] on June 14. SW informed pt that may need to be rescheduled if she is still at [facility]. Pt states we will cross that bridge if we have to. SW placed a call to Adrianna at [facility] and provided update. SW placed Green Sheet, transport forms, COVID tool on pt's chart in the event pt is medically ready for discharge over the weekend. Asya Acosta ANIMAL SHELTER CLERK, PHOTO PRODUCER
--- NOTE | 2021-06-11 10:35 | PCM.PN.HOSP ---
Documented by User: Latonya Ivy AUDIO VISUAL AIDE, AUDIO VISUAL AIDE-C 06/11/21 10:55 Subjective Subjective Patient seen and examined. More alert today, conversing appropriately. Denies current symptoms or complaints. Denies fever, chills. Suprapubic catheter changed this morning by urology. Objective Data Objective Data Vital Signs: Vital Signs Temp Pulse Resp BP Pulse Ox 98.2 F 74 18 119/73 98 06/11/21 09:04 06/11/21 09:04 06/11/21 09:04 06/11/21 09:04 06/11/21 09:04 Oxygen Flow Rate (L/min) 2 Oxygen Delivery Method Nasal Cannula Weight: 236 lb 15.951 oz Body Mass Index (BMI) 36.1 Intake & Output: Intake and Output for Last 24 Hours 06/09/21 06/10/21 06/11/21 23:59 23:59 23:59 Intake Total 4604.17 / 4604.17 1480 / 1480 Output Total 730 / 930 690 / 690 Balance 3874.17 / 3674.17 790 / 790 Medical Nutrition Assessment Dietitian: Nutrition Therapy Diagnosis Start: 06/10/21 11:09 Freq: Status: Active Protocol: Document 06/10/21 11:49 BP (Rec: 06/10/21 11:50 BP [id number]) Nutrition Malnutrition Evidence of Malnutrition Exists No Intake Problem Increased Nutrient Needs (specify) Etiology protein related to wound healing Signs/Symptoms as evidenced by coccyx & left thigh pressure injury, left great toe abrasion. Status Active Problem Clinical Problem Unintended Weight Loss Etiology related to predicted suboptimal energy intake Signs/Symptoms as evidenced by 11% wt loss x 2 months. 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 Continue glucerna 120 ml 4x/ day w/ medpass. Will provide John 1 pkt BID to promote wound healing Lab / Micro Data Result Diagrams: 06/11/21 07:00 06/11/21 07:00 Labs: Laboratory Results - last 24 hr 06/10/21 04:52: Diff Path Review Reviewed 06/10/21 06:15: POC Glucose 88 06/10/21 11:45: POC Glucose 85 06/10/21 16:41: POC Glucose 82 06/11/21 07:00: WBC 5.1, RBC 3.74 L, Hgb 10.4 L, Hct 33.8 L, MCV 90.4, MCH 27.8, MCHC 30.8 L, RDW Std Deviation 56.3 H, RDW Coeff of Jessi 17.0 H, Plt Count 189, MPV 10.0, Immature Gran % (Auto) 0.400, Neut % (Auto) 74.0 H, Lymph % (Auto) 12.5 L, [place] % (Auto) 11.1 H, Eos % (Auto) 1.2, Baso % (Auto) 0.8, Absolute Neuts (auto) 3.7, Absolute Lymphs (auto) 0.63 L, Nucleated RBC % 0 06/11/21 07:00: Sodium 137, Potassium 4.0, Chloride 111 H, Carbon Dioxide 21.0, Anion Gap 5, BUN 21 H, Creatinine 0.78, Estim Creat Clear Calc 49.79, Est GFR (MDRD) Af Amer 93, Est GFR (MDRD) Non-Af 77, BUN/Creatinine Ratio 27.0 H, Glucose 106, Calcium 8.1 L Micro: Microbiology 06/09/21 20:44 Blood Culture (Wb) - Left Hand Blood Culture - Preliminary 06/09/21 20:50 Urine, Nephrostomy Urine Culture - Preliminary Acinetobacter baumannii 06/10/21 00:58 Mucosa - Nasopharyngeal Respiratory Panel (PCR) - Final 06/10/21 01:55 Mucosa - Nose SARS-CoV-2 Antigen (Rapid) - Final Physical Exam Const alert, oriented x3 and no apparent distress Orientation / Consciousness: awake, oriented to person, oriented to place and oriented to time HEENT normocephalic and moist oral mucous membranes Eyes PERRL, EOMs intact bilaterally and conjunctivae normal Neck no lymphadenopathy Resp clear to auscultation bilaterally Auscultation: diminished lung sounds Cardio regular rate, regular rhythm and no murmurs Peripheral Pulses: pulses 2+ throughout GI normal to inspection, nondistended, normoactive bowel sounds, non-tender and non-distended Extremity normal to inspection Extremity Narrative: Chronic functional paraplegia. Skin no rashes or lesions noted Skin Narrative: Abdominal skin fold intertrigo with significant excoriation and erythema, erythema under bilateral breasts. Lesions: no lesions Rashes: no rashes Trauma: no lacerations or abrasions Neuro CN's II-XII intact bilaterally, no focal motor deficits, no sensory deficits noted and deep tendon reflexes 2+ bilaterally Psych mental status grossly normal and affect normal Assessment & Plan Assessment/Plan (1) Recurrent UTI: (2) Encephalopathy acute: PLAN: 1. Acute encephalopathy, infectious encephalopathy secondary to abdominal cellulitis versus UTI-blood culture preliminary growing gram-positive cocci 1/2. Urine culture from nephrostomy tube growing Acinetobacter. Await final cultures. On IV ertapenem and IV vancomycin pending cultures. ID consulted. Suprapubic catheter changed this morning by urology. Mental status improved. 2. Recent complicated UTI-status post nephrostomy tube placement and ureteral stents. On IV ertapenem, IV vancomycin PICC line in place. Urology consulted, suprapubic catheter changed. Patient has urology follow-up in 06-14-21. 3. Remarkable abdominal fold and breast area intertrigo-topical nystatin. Keep area clean and dry. Patient received 4. Type 2 diabetes mellitus-hemoglobin A1c less than 3.8%? Accu-Cheks discontinued. 5. Hypertension-not on regimen. As needed hydralazine for elevated blood pressure. 6. Hyperlipidemia-continue statin. 7. Paroxysmal atrial fibrillation-not on anticoagulation or rate limiting regimen. 8. Morbid obesity-encouraged diet and lifestyle modifications. 9. Anxiety/Depression- on venlafaxine. 10. VITA-continue PAP therapy. 11. Chronic normocytic anemia-at baseline. DVT prophylaxis-Lovenox subcu Discharge plan: Return to SNF when medically stable, patient has urology follow-up 06/14/21. This patient was seen by DEDRICK Simmons under the supervision of Dr. العلي. Documented by User: Dr. Lauro العلي MD 06/11/21 12:28 Subjective Subjective Patient overall awake denies any pain in the legs. She looks better than yesterday. No fever Objective Data Lab / Micro Data Result Diagrams: 06/11/21 07:00 06/11/21 07:00 Physical Exam Narrative General: Alert, Oriented x3, Cooperative HEENT: Atraumatic, PERRLA, EOMI, Normocephalic Oral: No Gingival or Mucosal Lesions/ Ulcerations Neck: Supple, No JVD, Negative Carotid Bruits Lungs: Air entry diminished in bilateral lung bases. No crepitation/rhonchi Cardiovascular: Regular rate, Regular Rhythm, Normal S1, Normal S2, No murmurs Abdomen: Bowel Sounds Present, Soft, Non Tender, Non-Distended : Suprapubic catheter. No renal angle tenderness. No suprapubic tenderness. Extremities: Bilateral leg edema improving, Capillary Refill Less than 3 Seconds Skin: Decubitus ulcer over back. Unstageable. Intertriginous rash over the abdominal fold and groin Musculoskeletal: Tenderness to Palpation of Joints or Extremities. ROM restricted Neurological: Cranial nerves II-XII grossly intact, Deep Tendon Reflexes 2+/4 and Symmetrical, Neuro grossly intact Psych/Mental Status: Anxious. Assessment & Plan Assessment/Plan (1) Encephalopathy: PLAN: This patient was seen in conjunction with AUDIO VISUAL AIDELatonya. I have independently interviewed and examined the patient and reviewed pertinent history, examination findings, laboratory and plan of management. I have reviewed the note and agree with the documented findings with the few additional points. In brief, patient is admitted for acute encephalopathy for several days with confusion, inattentive. Patient also has complicated UTI. Patient was recently evaluated [facility] and had left sided nephrostomy tube and right ureteral stent for staghorn calculus and history of recurrent UTI. CT abdomen shows left-sided perinephric inflammation with no hydronephrosis. Left-sided percutaneous nephrostomy and bilateral renal calculi. Urologist Dr. Zavala was consulted and she change the suprapubic catheter. ID consult reviewed and appreciated. Patient is on IV meropenem and linezolid with history of Pseudomonas and VRE. Patient encephalopathy has resolved. Wound care nurse has been consulted for unstagable sacral decubitus ulcer Other multiple comorbidities as mentioned above I have discussed my assessment with Latonya KOO and orders have been reviewed. Total time of the visit including total time spent in counseling or coordination of care, (more than 50% of the total time, spent in obtaining medical information from nurses and other ancillary care providers,explaining to the patient about labs, imaging, diagnosis and management), discussion with different consultants, review of labs and imaging is 30 minutes. Charges/Coding Visit Charges Inpatient E&M: 87893 Subs Hosp L2
[2021-06-11] MEDS: Menthol/Lanolin/Calamine/Znox 113 GM Tube 1 APPLIC TOPICAL ×2 (13:05→21:50)
--- NOTE | 2021-06-11 14:15 | CASEMGMT ---
Social Work Note ELIAS received call from pt's sister Esperanza asking if [facility] has any beds available. SW informed Esperanza that this worker is not sure, asked why they want to switch nursing homes. Esperanza sates that [facility] has low staffing. SW asked Esperanza if she is wanting pt to go short term or usp to SNF. Esperanza states it will be for admissions nurse care. ELIAS informed Esperanza that it is not appropriate to send pt to TCU as they are a short term unit/SNF and pt will need usp care. Esperanza states understanding. SW in to speak with pt and pt's sister Esperanza. Patient and Esperanza was provided a list of SNF providers including quality and resource use data and consistent with the patient?s preferred geographic region, medical needs, and insurance network. Esperanza states she also spoke with Shan. ELIAS informed Esperanza that [facility] is [facility], pt would need to function at an almost independent level for [employer] and [employer] is all private pay. SW encouraged Esperanza and pt to discuss further SNF once returns to [facility]. SW informed pt and Esperanza that the recommendation is for pt's to return to the facilities they came from and then can make changes in facilities once they are back. Esperanza and pt states understanding, agreeable to pt returning to [facility] at discharge from [facility]. Asya Acosta FLUX MIXER, DETECTIVE SERGEANT
[2021-06-11 15:00] VITALS: BP 115/67; PULSE 113; RESP 18; TEMP 36.9; O2SAT 100
[2021-06-11] MEDS: Acetaminophen 325 MG Tablet 650 MG PO (15:07)
--- NOTE | 2021-06-11 17:01 | PCM.PN.ID ---
Physical Exam Narrative Feeling better, no fever, no abd pain Const alert General Appearance: cooperative Resp clear to auscultation bilaterally Cardio regular rate and regular rhythm GI normal to inspection, nondistended, normoactive bowel sounds Skin Skin Narrative: no new rash ID ID: Route of nutrition/ use of supplements: [] Nutritional Intake: [] IV Site: [] Henry Catheter: [] Assessment & Plan Assessment/Plan (1) Encephalopathy: PLAN: Bcx with enterococcus. Ucx with AcB. Concern for uti, cellulitis. Recent h/o pseudomonas and VRE, cont linezolid/meropenem. Feeling better today. Will follow, thank you, d/w primary team (2) Cellulitis of left abdominal wall:
[2021-06-11 18:12] VITALS: TEMP 36.8
[2021-06-11 19:55] VITALS: BP 103/56; PULSE 102; RESP 18; TEMP 36.7; O2SAT 99
[2021-06-11] MEDS: Pravastatin 20 MG Tablet PO (22:04)
[2021-06-12 02:06] VITALS: BP 110/63; PULSE 95; RESP 18; TEMP 36.2; O2SAT 100
[2021-06-12] MEDS: Menthol/Lanolin/Calamine/Znox 113 GM Tube 1 APPLIC TOPICAL ×3 (05:59→21:18)
[2021-06-12] MEDS: Nystatin Powder 15gm Bottle 1 APPLIC TOPICAL ×3 (06:00→21:20)
[2021-06-12] MEDS: 0.9% Normal Saline 1,000 ML 100 ML IV (06:40)
[2021-06-12 08:03] LABS: Absolute Lymphocyte Count 0.54 X10^3/uL (0.83-4.51); Absolute Neutrophil Count 1.2 X10^3/uL (2.0-7.7); Basophil# 0.03 X10^3/uL; Basophil% 1.4 % (0-1); Eosinophil# 0.13 X10^3/uL; Hematocrit 28.2 % (37-47); Hemoglobin 8.7 g/dL (12.0-15.0); Lymphocyte # 0.54 X10^3/ul (0.83-4.51); Lymphocyte % 24.8 % (19-41); Mean Corp Hgb Conc 30.9 g/dL (32-36); Mean Corpuscular Hgb 29.4 pg (27.0-32.0); Mean Corpuscular Volume 95.3 fL (81-99); Mean Platelet Vol. 10.6 fl (6.2-12.0); Monocyte# 0.29 X10^3/uL; Monocyte% 13.3 % (0-10); NRBC Flagged by Analyzer 0 % (0-5); Neutrophil # 1.17 X10^3/uL (2.7-7.7); Neutrophil % 53.6 % (47-70); POSITIVE DIFFERENTIAL YES; Platelet Count 178 K/mm3 (150-450); RBC Distribution Width SD 51.8 fl (35.1-43.9); Red Blood Count 2.96 M/mm3 (4.2-5.4); White Blood Count 2.2 K/mm3 (4.4-11.0)
[2021-06-12 08:17] LABS: Anion Gap 4 (5-15); BUN 21 mg/dL (7-18); BUN/Creat Ratio 28.6 RATIO (10-20); Calcium,Total 7.7 mg/dL (8.5-10.1); Chloride 113 mmol/L (98-107); Creatinine, Serum 0.73 mg/dL (0.55-1.02); EST Glomerular Filtration Rate 82 mL/min (>60); Est Glom Filt Rate - Afr Amer 100 mL/min (>60); Estimated Creatinine Clearance 49.79 ml/min; Glucose 84 mg/dL (74-106); Potassium 3.8 mmol/L (3.5-5.1); Sodium Level 143 mmol/L (136-145)
[2021-06-12 08:18] VITALS: BP 124/70; PULSE 90; RESP 16; TEMP 36.3; O2SAT 98
[2021-06-12] MEDS: Aspirin 81 MG TAB.CHEW PO (08:25)
[2021-06-12 08:42] LABS: Differential Indicated SCAN CRITERIA MET
[2021-06-12 09:03] LABS: Differential Comment SCANNED
[2021-06-12] MEDS: Venlafaxine XR 150 MG Capsule PO (10:10)
[2021-06-12] MEDS: Tolterodine Tartrate 4 MG CAP.SA PO (10:10)
[2021-06-12] MEDS: Glucerna Shake 120 ML LIQUID PO ×2 (10:10→14:53)
[2021-06-12] MEDS: Pantoprazole Sodium 20 MG Tablet PO (10:10)
[2021-06-12] MEDS: Gabapentin 600 MG Tablet PO ×2 (10:10→21:20)
[2021-06-12] MEDS: Baclofen 10 MG Tablet PO (10:10)
[2021-06-12] MEDS: Linezolid 600 MG Tablet PO ×2 (10:10→21:21)
[2021-06-12] MEDS: Enoxaparin 40 MG/0.4 ML Syringe SC (10:10)
[2021-06-12] MEDS: Methenamine Hippurate 1 GM Tablet PO ×2 (10:10→21:22)
--- NOTE | 2021-06-12 14:45 | PCM.PN.HOSP ---
Documented by User: Latonya Ivy STUDENT SERVICES VICE PRESIDENT, STUDENT SERVICES VICE PRESIDENT-C 06/12/21 14:52 Subjective Subjective Patient seen and examined. Drowsy this morning. Afebrile. Denies symptoms or compliants. Objective Data Objective Data Vital Signs: Vital Signs Temp Pulse Resp BP Pulse Ox 97.3 F L 90 16 124/70 H 98 06/12/21 08:18 06/12/21 08:18 06/12/21 08:18 06/12/21 08:18 06/12/21 08:18 Oxygen Flow Rate (L/min) 2 Oxygen Delivery Method Room Air Weight: 249 lb 12.54 oz Body Mass Index (BMI) 36.1 Intake & Output: Intake and Output for Last 24 Hours 06/10/21 06/11/21 06/12/21 23:59 23:59 23:59 Intake Total 4604.17 / 4604.17 4380.00 / 4380.00 1480.00 / 1480.00 Output Total 730 / 930 1740 / 1740 1850 / 1850 Balance 3874.17 / 3674.17 2640.00 / 2640.00 -370.00 / -370.00 Medical Nutrition Assessment Dietitian: Nutrition Therapy Diagnosis Start: 06/10/21 11:09 Freq: Status: Active Protocol: Document 06/10/21 11:49 BP (Rec: 06/10/21 11:50 BP [id number]) Nutrition Malnutrition Evidence of Malnutrition Exists No Intake Problem Increased Nutrient Needs (specify) Etiology protein related to wound healing Signs/Symptoms as evidenced by coccyx & left thigh pressure injury, left great toe abrasion. Status Active Problem Clinical Problem Unintended Weight Loss Etiology related to predicted suboptimal energy intake Signs/Symptoms as evidenced by 11% wt loss x 2 months. 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 Continue glucerna 120 ml 4x/ day w/ medpass. Will provide John 1 pkt BID to promote wound healing Lab / Micro Data Result Diagrams: 06/12/21 07:46 06/12/21 07:46 Labs: Laboratory Results - last 24 hr 06/12/21 07:46: WBC 2.2 L, RBC 2.96 L, Hgb 8.7 L, Hct 28.2 L, MCV 95.3 D, MCH 29.4, MCHC 30.9 L, RDW Std Deviation 51.8 H, RDW Coeff of Jessi 15.0 H, Plt Count 178, MPV 10.6, Immature Gran % (Auto) 0.900, Neut % (Auto) 53.6, Lymph % (Auto) 24.8, Mcclain % (Auto) 13.3 H, Eos % (Auto) 6.0 H, Baso % (Auto) 1.4 H, Absolute Neuts (auto) 1.2 L, Absolute Lymphs (auto) 0.54 L, Nucleated RBC % 0, Differential Comment SCANNED, Diff Path Review March foll 06/12/21 07:46: Sodium 143, Potassium 3.8, Chloride 113 H, Carbon Dioxide 26.0, Anion Gap 4 L, BUN 21 H, Creatinine 0.73, Estim Creat Clear Calc 49.79, Est GFR (MDRD) Af Amer 100, Est GFR (MDRD) Non-Af 82, BUN/Creatinine Ratio 28.6 H, Glucose 84, Calcium 7.7 L Micro: Microbiology 06/09/21 20:44 Blood Culture (Wb) - Left Hand Bacteria Detection (PCR) - Final Enterococcus faecium 06/09/21 20:44 Blood Culture (Wb) - Left Hand Blood Culture - Preliminary Enterococcus faecium 06/09/21 20:50 Urine, Nephrostomy Urine Culture - Final Acinetobacter baumannii 06/09/21 19:45 Blood Culture (Wb) - Port Blood Culture - Preliminary 06/10/21 00:58 Mucosa - Nasopharyngeal Respiratory Panel (PCR) - Final 06/10/21 01:55 Mucosa - Nose SARS-CoV-2 Antigen (Rapid) - Final Physical Exam Const alert, oriented x3 and no apparent distress Orientation / Consciousness: awake, oriented to person, oriented to place and oriented to time HEENT normocephalic and moist oral mucous membranes Eyes PERRL, EOMs intact bilaterally and conjunctivae normal Neck no lymphadenopathy Resp clear to auscultation bilaterally Auscultation: diminished lung sounds Cardio regular rate, regular rhythm and no murmurs Peripheral Pulses: pulses 2+ throughout GI normal to inspection, nondistended, normoactive bowel sounds, non-tender and non-distended Extremity normal to inspection Skin no rashes or lesions noted Skin Narrative: Abdominal skin fold intertrigo with significant excoriation and erythema, erythema under bilateral breasts. Lesions: no lesions Rashes: no rashes Trauma: no lacerations or abrasions Neuro CN's II-XII intact bilaterally, no focal motor deficits, no sensory deficits noted and deep tendon reflexes 2+ bilaterally Psych mental status grossly normal and affect normal Assessment & Plan Assessment/Plan (1) UTI (urinary tract infection): QUALIFIERS: Indwelling urinary catheter type: cystostomy catheter Encounter type: initial encounter (2) Encephalopathy: PLAN: 1. Acute encephalopathy, infectious encephalopathy secondary to abdominal cellulitis versus UTI with Enterococcus bacteremia- Urine culture from nephrostomy tube growing Acinetobacter. ID consulted. Suprapubic catheter changed by urology. Mental status improved. On linezolid and meropenem. 2. Recent complicated UTI-status post nephrostomy tube placement and ureteral stents. Urology consulted, suprapubic catheter changed. Patient has urology follow-up in 06-14-21. 3. Remarkable abdominal fold and breast area intertrigo-topical nystatin. Keep area clean and dry. 4. Type 2 diabetes mellitus-hemoglobin A1c less than 3.8%? Accu-Cheks discontinued. 5. Hypertension-not on regimen. As needed hydralazine for elevated blood pressure. 6. Hyperlipidemia-continue statin. 7. Paroxysmal atrial fibrillation-not on anticoagulation or rate limiting regimen. 8. Morbid obesity-encouraged diet and lifestyle modifications. 9. Anxiety/Depression- on venlafaxine. 10. VITA-continue PAP therapy. 11. Chronic normocytic anemia-at baseline. DVT prophylaxis-Lovenox subcu Discharge plan: Return to SNF when medically stable, patient has urology follow-up 06/14/21. This patient was seen by DEDRICK Simmons under the supervision of Dr. العلي. Documented by User: Dr. Lauro العلي MD 06/12/21 15:17 Subjective Subjective Patient overall looks better. No pain. Objective Data Lab / Micro Data Result Diagrams: 06/12/21 07:46 06/12/21 07:46 Physical Exam Narrative General: Alert, Oriented x3, Cooperative HEENT: Atraumatic, PERRLA, EOMI, Normocephalic Oral: No Gingival or Mucosal Lesions/ Ulcerations Neck: Supple, No JVD, Negative Carotid Bruits Lungs: Air entry diminished in bilateral lung bases. No crepitation/rhonchi Cardiovascular: Regular rate, Regular Rhythm, Normal S1, Normal S2, No murmurs Abdomen: Bowel Sounds Present, Soft, Non Tender, Non-Distended : Suprapubic catheter. No renal angle tenderness. No suprapubic tenderness. Extremities: Bilateral leg edema improving, Capillary Refill Less than 3 Seconds Skin: Decubitus ulcer over back. Unstageable. Intertriginous rash over the abdominal fold and groin Musculoskeletal: Tenderness to Palpation of Joints or Extremities. ROM restricted Neurological: Cranial nerves II-XII grossly intact, Deep Tendon Reflexes 2+/4 and Symmetrical, Neuro grossly intact Psych/Mental Status: Anxious. Assessment & Plan Assessment/Plan (1) UTI (urinary tract infection): QUALIFIERS: Indwelling urinary catheter type: cystostomy catheter Encounter type: initial encounter (2) Encephalopathy: PLAN: This patient was seen in conjunction with STUDENT SERVICES VICE PRESIDENT, Latonya. I have independently interviewed and examined the patient and reviewed pertinent history, examination findings, laboratory and plan of management. I have reviewed the note and agree with the documented findings with the few additional points. In brief, patient is admitted for acute encephalopathy for several days with confusion, inattentive. Patient also has complicated UTI. Patient was recently evaluated [facility] and had left sided nephrostomy tube and right ureteral stent for staghorn calculus and history of recurrent UTI. CT abdomen shows left-sided perinephric inflammation with no hydronephrosis. Left-sided percutaneous nephrostomy and bilateral renal calculi. Patient is scheduled for urology follow-up on June 14 in [facility]. Urologist Dr. Zavala was consulted and she change the suprapubic catheter. ID consult reviewed and appreciated. Patient is on IV meropenem and linezolid with history of Pseudomonas and VRE. Patient encephalopathy has resolved. Blood culture is growing Enterococcus feceium. Urine culture is growing Acinetobacter baUMANI resistant to piperacillin and other antibiotics only sensitive to gentamicin and tobramycin. Discussed with ID. Advised to continue Zosyn as patient is improving and risk/benefit analysis of clinical situation does not favor aminoglycoside Wound care nurse has been consulted for unstagable sacral decubitus ulcer Other multiple comorbidities as mentioned above I have discussed my assessment with STUDENT SERVICES VICE PRESIDENTLatonya and orders have been reviewed. Charges/Coding Visit Charges Inpatient E&M: 24153 Subs Hosp L2
[2021-06-12 14:48] VITALS: BP 124/73; PULSE 97; RESP 18; TEMP 36.7; O2SAT 98
[2021-06-12 15:17] VITALS: O2SAT 96
[2021-06-12 21:09] VITALS: BP 119/77; PULSE 103; RESP 18; TEMP 36.6; O2SAT 96
[2021-06-12] MEDS: Pravastatin 20 MG Tablet PO (21:20)
[2021-06-13] VITALS (8 sets, daily range): BP systolic 105–135; BP diastolic 59–81; PULSE 98–109; RESP 16–20; TEMP 36.5–37.1; O2SAT 96–100
[2021-06-13] MEDS: Ondansetron 4 MG/2 ML Vial IV (03:30)
[2021-06-13] MEDS: Menthol/Lanolin/Calamine/Znox 113 GM Tube 1 APPLIC TOPICAL ×3 (05:47→21:36)
[2021-06-13] MEDS: Nystatin Powder 15gm Bottle 1 APPLIC TOPICAL ×3 (05:47→21:38)
[2021-06-13 06:56] LABS: Absolute Lymphocyte Count 0.37 X10^3/uL (0.83-4.51); Absolute Neutrophil Count 1.4 X10^3/uL (2.0-7.7); Basophil# 0.02 X10^3/uL; Basophil% 0.9 % (0-1); Eosinophil# 0.13 X10^3/uL; Eosinophils% 5.8 % (0-5); Hematocrit 23.2 % (37-47); Hemoglobin 7.1 g/dL (12.0-15.0); Lymphocyte # 0.37 X10^3/ul (0.83-4.51); Lymphocyte % 16.4 % (19-41); Mean Corp Hgb Conc 30.6 g/dL (32-36); Mean Corpuscular Hgb 29.2 pg (27.0-32.0); Mean Corpuscular Volume 95.5 fL (81-99); Mean Platelet Vol. 11.2 fl (6.2-12.0); Monocyte# 0.37 X10^3/uL; Monocyte% 16.4 % (0-10); NRBC Flagged by Analyzer 0 % (0-5); Neutrophil # 1.36 X10^3/uL (2.7-7.7); Neutrophil % 60.1 % (47-70); POSITIVE COUNT YES; POSITIVE DIFFERENTIAL YES; Platelet Count 83 K/mm3 (150-450); RBC Distribution Width CV 14.9 % (11.6-14.6); RBC Distribution Width SD 52.2 fl (35.1-43.9); Red Blood Count 2.43 M/mm3 (4.2-5.4); White Blood Count 2.3 K/mm3 (4.4-11.0)
[2021-06-13 07:11] LABS: Differential Indicated SCAN CRITERIA MET
[2021-06-13 07:13] LABS: Anion Gap 5 (5-15); BUN 21 mg/dL (7-18); BUN/Creat Ratio 27.6 RATIO (10-20); Chloride 112 mmol/L (98-107); Creatinine, Serum 0.76 mg/dL (0.55-1.02); EST Glomerular Filtration Rate 79 mL/min (>60); Est Glom Filt Rate - Afr Amer 95 mL/min (>60); Estimated Creatinine Clearance 49.79 ml/min; Glucose 76 mg/dL (74-106); Potassium 3.8 mmol/L (3.5-5.1); Sodium Level 140 mmol/L (136-145)
[2021-06-13 09:53] LABS: Differential Comment SCANNED; Platelet Estimate MOD DEC (ADEQ)
[2021-06-13] MEDS: Glucerna Shake 120 ML LIQUID PO ×3 (10:09→17:24)
[2021-06-13] MEDS: Tolterodine Tartrate 4 MG CAP.SA PO (10:10)
[2021-06-13] MEDS: Linezolid 600 MG Tablet PO ×2 (10:10→21:36)
[2021-06-13] MEDS: Venlafaxine XR 150 MG Capsule PO (10:10)
[2021-06-13] MEDS: Pantoprazole Sodium 20 MG Tablet PO (10:10)
[2021-06-13] MEDS: Enoxaparin 40 MG/0.4 ML Syringe SC (10:10)
[2021-06-13] MEDS: Gabapentin 600 MG Tablet PO (10:11)
[2021-06-13] MEDS: Baclofen 10 MG Tablet PO (10:11)
[2021-06-13] MEDS: Aspirin 81 MG TAB.CHEW PO (10:11)
[2021-06-13] MEDS: Methenamine Hippurate 1 GM Tablet PO ×2 (10:12→21:38)
--- NOTE | 2021-06-13 12:02 | PN.HOSP_ITS ---
Documented by User: Latonya Ivy CRATER AND PACKER, CRATER AND PACKER-C 06/13/21 12:26 Subjective Subjective Patient seen and examined. Appears more confused this morning, drowsy. Looking for call button however unable to state what she needs. Denies specific symptoms/complaints. Objective Data Objective Data Vital Signs: Vital Signs Temp Pulse Resp BP Pulse Ox 98.2 F 101 H 18 128/66 H 98 06/13/21 10:06 06/13/21 10:06 06/13/21 10:06 06/13/21 10:06 06/13/21 10:06 Oxygen Flow Rate (L/min) 2 Oxygen Delivery Method Room Air Weight: 251 lb 5.231 oz Body Mass Index (BMI) 36.1 Intake & Output: Intake and Output for Last 24 Hours 06/11/21 06/12/21 06/13/21 23:59 23:59 23:59 Intake Total 4380.00 / 4380.00 2251.50 / 2251.50 440 / 440 Output Total 1740 / 1740 2845 / 2845 425 / 425 Balance 2640.00 / 2640.00 -593.50 / -593.50 Medical Nutrition Assessment Dietitian: Nutrition Therapy Diagnosis Start: 06/10/21 11 :09 Freq: Status: Active Protocol: Document 06/10/21 11:49 BP (Rec: 06/10/21 11:50 BP [id number]) Nutrition Malnutrition Evidence of Malnutrition Exists No Intake Problem Increased Nutrient Needs (specify) Etiology protein related to wound healing Signs/Symptoms as evidenced by coccyx & left thigh pressure injury, left great toe abrasion. Status Active Problem Clinical Problem Unintended Weight Loss Etiology related to predicted suboptimal energy intake Signs/Symptoms as evidenced by 11% wt loss x 2 months. 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 Continue glucerna 120 ml 4x/ day w/ medpass. Will provide John 1 pkt BID to promote wound healing Lab / Micro Data Result Diagrams: 06/13/21 05:45 06/13/21 05:45 Labs: Laboratory Results - last 24 hr 06/13/21 05:45: WBC 2.3 L, RBC 2.43 L, Hgb 7.1 L, Hct 23.2 L, MCV 95.5, MCH 29.2, MCHC 30.6 L, RDW Std Deviation 52.2 H, RDW Coeff of Jessi 14.9 H, Plt Count 83 L, MPV 11.2, Immature Gran % (Auto) 0.400, Neut % (Auto) 60.1, Lymph % (Auto) 16.4 L, Bonner % (Auto) 16.4 H, Eos % (Auto) 5.8 H, Baso % (Auto) 0.9, Absolute Neuts (auto) 1.4 L, Absolute Lymphs (auto) 0.37 L, Nucleated RBC % 0, Differential Comment SCANNED, Diff Path Review March, Platelet Estimate MOD 06/13/21 05:45: Sodium 140, Potassium 3.8, Chloride 112 H, Carbon Dioxide 23.0, Anion Gap 5, BUN 21 H, Creatinine 0.76, Estim Creat Clear Calc 49.79, Est GFR (MDRD) Af Amer 95, Est GFR (MDRD) Non-Af 79, BUN/Creatinine Ratio 27.6 H, Glucose 76, Calcium 8.0 L Micro: Microbiology 06/09/21 19:45 Blood Culture (Wb) - Port Blood Culture - Final GPC Poss Enterococcus sp 06/09/21 20:44 Blood Culture (Wb) - Left Hand Bacteria Detection (PCR) - Final Enterococcus faecium 06/09/21 20:44 Blood Culture (Wb) - Left Hand Blood Culture - Final Enterococcus faecium 06/09/21 20:50 Urine, Nephrostomy Urine Culture - Final Acinetobacter baumannii 06/10/21 00:58 Mucosa - Nasopharyngeal Respiratory Panel (PCR) - Final 06/10/21 01:55 Mucosa - Nose SARS-CoV-2 Antigen (Rapid) - Final Physical Exam Const alert and no apparent distress Orientation / Consciousness: awake and confused HEENT normocephalic and moist oral mucous membranes Eyes PERRL, EOMs intact bilaterally and conjunctivae normal Neck no lymphadenopathy Resp normal respiratory effort and clear to auscultation bilaterally Cardio regular rate, regular rhythm and no murmurs Peripheral Pulses: pulses 2+ throughout GI normal to inspection, nondistended, normoactive bowel sounds, non-tender and non-distended Extremity normal to inspection Skin no rashes or lesions noted Skin Narrative: Abdominal skin fold intertrigo with significant excoriation and erythema, erythema under bilateral breasts. Lesions: no lesions Rashes: no rashes Trauma: no lacerations or abrasions Neuro CN's II-XII intact bilaterally, no focal motor deficits, no sensory deficits noted and deep tendon reflexes 2+ bilaterally Psych mental status grossly normal and affect normal Assessment & Plan Assessment/Plan (1) Encephalopathy: (2) UTI (urinary tract infection): QUALIFIERS: Encounter type: initial encounter Indwelling urinary catheter type: cystostomy catheter PLAN: 1. Acute encephalopathy, infectious encephalopathy secondary to abdominal cellulitis and UTI with Enterococcus bacteremia- Urine culture from n ephrostomy tube growing Acinetobacter. ID consulted. Suprapubic catheter changed by urology. On linezolid and meropenem. 2. Recent complicated UTI-status post nephrostomy tube placement and ureteral stents. Urology consulted, suprapubic catheter changed. 3. Remarkable abdominal fold and breast area intertrigo-topical nystatin. Keep area clean and dry. 4. Type 2 diabetes mellitus-hemoglobin A1c less than 3.8%? Accu-Cheks discontinued. 5. Hypertension-not on regimen. As needed hydralazine for elevated blood pressure. 6. Hyperlipidemia-continue statin. 7. Paroxysmal atrial fibrillation-not on anticoagulation or rate limiting regimen. 8. Morbid obesity-encouraged diet and lifestyle modifications. 9. Anxiety/Depression- on venlafaxine. 10. VITA-continue PAP therapy. 11. Acute on Chronic normocytic anemia-1 unit PRBC ordered for hemoglobin 7.1. PPI twice daily. Check stool for occult blood. Check iron studies. DVT prophylaxis-Lovenox subcu Discharge plan: Return to SNF when medically stable. This patient was seen by DEDRICK Simmons under the supervision of Dr. Cristina win. Documented by User: Dr. Lauro العلي MD 06/13/21 14:41 Subjective Subjective Seen and examined. Patient is a little slow and takes increased reaction time to answer questions. No fever or chills. Objective Data Lab / Micro Data Result Diagrams: 06/13/21 05:45 08/01/21 05:45 Physical Exam Narrative General: Confused and disoriented. HEENT: Atraumatic, PERRLA, EOMI, Normocephalic Oral: No Gingival or Mucosal Lesions/ Ulcerations Neck: Supple, No JVD, Negative Carotid Bruits Lungs: Air entry diminished in bilateral lung bases. No crepitation/rhonchi Cardiovascular: Regular rate, Regular Rhythm, Normal S1, Normal S2, No murmurs Abdomen: Bowel Sounds Present, Soft, Non Tender, Non-Distended : Suprapubic catheter. No renal angle tenderness. No suprapubic tenderness. Extremities: Bilateral leg edema improving, Capillary Refill Less than 3 Seconds Skin: Decubitus ulcer over back. Unstageable. Intertriginous rash over the abdominal fold and groin Musculoskeletal: Tenderness to Palpation of Joints or Extremities. ROM restricted. Bedbound/wheelchair bound. Neurological: Cranial nerves II-XII grossly intact, Deep Tendon Reflexes 2+/4 and Symmetrical, Neuro grossly intact Psych/Mental Status: Confused. Assessment & Plan Assessment/Plan (1) Encephalopathy acute: PLAN: This patient was seen in conjunction with CRATER AND PACKER, Latonya. I have independently interviewed and examined the patient and reviewed pertinent history, examination findings, laboratory and plan of management. I have reviewed the note and agree with the documented findings with the few additional points. In brief, patient is admitted for acute encephalopathy for several days with confusion, inattentive. Patient also has complicated UTI. Patient was recently evaluated [facility] and had left sided nephrostomy tube and right ureteral stent for staghorn calculus and history of recurrent UTI. CT abdomen shows left-sided perinephric inflammation with no hydronephrosis. Left-sided percutaneous nephrostomy and bilateral renal calculi. Patient is scheduled for urology follow-up on June 14 in [facility]. Urologist Dr. Zavala was consulted and she change the suprapubic catheter. ID consult reviewed and a ppreciated. Patient is on IV meropenem and linezolid with history of Pseudomonas and VRE. Patient encephalopathy fluctuates. Blood culture is growing Enterococcus feceium. Urine culture is growing Acinetobacter Baumanii resistant to piperacillin and other antibiotics only sensitive to gentamicin and tobramycin. Discussed with ID. Advised to continue Zosyn as patient is improving and risk/benefit analysis of clinical situation does not favor aminoglycoside. I talked to the patient sister near the bedside and gave the clinical update. Advised to cancel urology follow-up appointment on June 14 in [facility] as she is having Enterococcus bacteremia and complicated UTI Wound care nurse has been consulted for unstagable sacral decubitus ulcer Other multiple comorbidities as mentioned above Total time of the visit including total time spent in counseling or coordination of care, (more than 50% of the total time, spent in obtaining medical information from nurses and other ancillary care providers,explaining to the patient about labs, imaging, diagnosis and management), discussion with family member, review of labs and imaging is 30 minutes. I have discussed my assessment with CRATER AND PACKERLatonya and orders have been reviewed. Charges/Coding Visit Charges Inpatient E&M: 73488 Subs Hosp L3
[2021-06-13 13:22] LABS: Ferritin 52 ng/mL (8-252); Iron 54 ug/dL (50-170)
[2021-06-13] MEDS: 0.9% Saline Lock 10 ML Syringe IV (17:43)
[2021-06-13] MEDS: Gabapentin 300 MG Capsule PO (21:34)
[2021-06-13] MEDS: Pantoprazole Sodium 40 MG Tablet PO (21:34)
[2021-06-13] MEDS: Baclofen 10 MG Tablet 5 MG PO (21:37)
[2021-06-13] MEDS: Pravastatin 20 MG Tablet PO (21:42)
[2021-06-14] VITALS (13 sets, daily range): BP systolic 116–171; BP diastolic 66–91; PULSE 86–112; RESP 14–20; TEMP 35.7–36.9; O2SAT 96–100
[2021-06-14] MEDS: 0.9% Saline Lock 10 ML Syringe IV ×3 (03:41→23:44)
[2021-06-14] MEDS: Nystatin Powder 15gm Bottle 1 APPLIC TOPICAL ×2 (05:32→14:39)
[2021-06-14] MEDS: Menthol/Lanolin/Calamine/Znox 113 GM Tube 1 APPLIC TOPICAL ×3 (05:33→19:56)
[2021-06-14 06:51] LABS: Absolute Lymphocyte Count 0.51 X10^3/uL (0.83-4.51); Absolute Neutrophil Count 1.2 X10^3/uL (2.0-7.7); Basophil# 0.02 X10^3/uL; Basophil% 0.9 % (0-1); Eosinophil# 0.15 X10^3/uL; Eosinophils% 6.6 % (0-5); Hematocrit 29.6 % (37-47); Hemoglobin 9.2 g/dL (12.0-15.0); Lymphocyte # 0.51 X10^3/ul (0.83-4.51); Lymphocyte % 22.6 % (19-41); Mean Corp Hgb Conc 31.1 g/dL (32-36); Mean Corpuscular Hgb 28.9 pg (27.0-32.0); Mean Corpuscular Volume 93.1 fL (81-99); Mean Platelet Vol. 10.7 fl (6.2-12.0); Monocyte# 0.42 X10^3/uL; Monocyte% 18.6 % (0-10); NRBC Flagged by Analyzer 0 % (0-5); Neutrophil # 1.15 X10^3/uL (2.7-7.7); Neutrophil % 50.9 % (47-70); POSITIVE DIFFERENTIAL YES; Platelet Count 187 K/mm3 (150-450); RBC Distribution Width CV 15.2 % (11.6-14.6); RBC Distribution Width SD 51.7 fl (35.1-43.9); Red Blood Count 3.18 M/mm3 (4.2-5.4); White Blood Count 2.3 K/mm3 (4.4-11.0)
[2021-06-14 07:02] LABS: Differential Indicated SCAN CRITERIA MET
[2021-06-14 07:14] LABS: Anion Gap 3 (5-15); BUN 26 mg/dL (7-18); BUN/Creat Ratio 37.6 RATIO (10-20); Calcium,Total 8.1 mg/dL (8.5-10.1); Chloride 112 mmol/L (98-107); Creatinine, Serum 0.69 mg/dL (0.55-1.02); EST Glomerular Filtration Rate 88 mL/min (>60); Est Glom Filt Rate - Afr Amer 107 mL/min (>60); Estimated Creatinine Clearance 49.79 ml/min; Glucose 86 mg/dL (74-106); Sodium Level 142 mmol/L (136-145)
[2021-06-14 08:20] LABS: Differential Comment SCANNED
[2021-06-14] MEDS: Enoxaparin 40 MG/0.4 ML Syringe SC (09:14)
[2021-06-14 09:33] LABS: Vitamin B12 1047 pg/mL (211-911)
--- NOTE | 2021-06-14 11:34 | PCM.PN.ID ---
Physical Exam Narrative Sleeping. Emesis this AM. Const Orientation / Consciousness: lethargic Resp clear to auscultation bilaterally Auscultation: diminished lung sounds Cardio regular rate and regular rhythm GI normal to inspection, nondistended, normoactive bowel sounds Skin no rashes or lesions noted ID ID: Route of nutrition/ use of supplements: [] Nutritional Intake: [] IV Site: [] Henry Catheter: [] Assessment & Plan Assessment/Plan (1) Encephalopathy: PLAN: Bcx x2 with enterococcus. Ucx with AcB. Concern for uti, cellulitis. Recent h/o pseudomonas and VRE, cont linezolid for 10 days total. On methenamine. Off wenceslao. Will follow (2) Cellulitis of left abdominal wall:
--- NOTE | 2021-06-14 11:56 | PCM.TXEXTCAR ---
Diet 06/10/21 11:50 Diet: Cardiac - Heart Healthy Type of Dietary Supplement:: John Is pt able to select menu?: Yes Diet Comments: FEED TAKE TO DESK PLEASE; John 1 pkt BID at L&D Wound(s) COCCYX: Wound Type: Pressure Injury LEFT NEPHROSTOMY TUBE: Wound Type: TUBE SITE left thigh: Wound Type: Pressure Injury left great toe: Wound Type: Abrasion Lt inner thigh: Wound Type: open area from skin rubbing under pannus: Wound Type: open area Problem/Diagnosis (1) Encephalopathy: Status: Acute (2) Cellulitis of left abdominal wall: Status: Acute Allergies/Procedures Done in Hospital Allergies adhesive tape Allergy (Verified 06/09/21 18:58) blisters Influenza Virus Vaccines Allergy (Verified 06/09/21 18:58) shortness of breath/severe wheezing iron Allergy (Verified 06/09/21 18:58) from IV form chest pressure and heart palpitations Sulfa (Sulfonamide Antibiotics) Allergy (Verified 06/09/21 18:58) Shortness of breath bactrim does not work for her-per pcp paperwork meloxicam [From Mobic] Adverse Reaction (Verified 06/09/21 18:58) gi upset seasonal allergies Allergy (Uncoded 06/09/21 18:58) Other Dietary and Speech Recommendations Dietitian Recommendations/Changes: Will liberalize pt to cardiac diet as pt with unintentional wt loss & 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 Continue glucerna 120 ml 4x/day w/ medpass. Will provide John 1 pkt BID to promote wound healing Discharge Plan Admission Admit Date/Time: 06/10/21 10:35 Attending Provider: Lauro العلي Primary Care Provider: Colby Valenzuela Consulting Providers: Marshall Flores ; Rebecca Zavala Discharge Orders/Prescriptions Prescriptions: No Action pravastatin 20 MG tablet 20 mg PO QHS RF: 0 venlafaxine 150 MG capsule 150 mg PO DAILY RF: 0 potassium chloride 10 MEQ tablet 10 meq PO DAILYCM RF: 0 methenamine hippurate 1 GM tablet 1 gm PO BID Qty: 0 RF: 0 aspirin 81 MG tablet,chewable 81 mg PO DAILY MDD heart health Qty: 0 RF: 0 acetaminophen 500 MG tablet 1,000 mg PO Q6H PRN PRN (Reason: Pain Score 1-10) RF: 0 gabapentin 600 mg Tablet 600 mg PO BID RF: 0 miconazole nitrate 2 % Powder 1 applic TOPICAL BID RF: 0 baclofen 20 mg Tablet 20 mg PO QHS RF: 0 magnesium hydroxide [Milk of Magnesia] 400 mg/5 mL Suspension 30 ml PO DAILY PRN (Reason: Constipation) RF: 0 baclofen 10 mg Tablet 10 mg PO DAILY RF: 0 bisacodyl 10 mg Suppository 10 mg SC DAILY PRN (Reason: Constipation) RF: 0 Fleet Enema 19-7 gram/118 mL Enema 118 ml SC DAILY PRN PRN (Reason: Constipation) RF: 0 omeprazole 20 mg Capsule,Delayed Release(Dr/Ec) 20 mg PO DAILY RF: 0 Multi Minerals Tablet 1 tab PO DAILY RF: 0 ertapenem 1 gram Recon Soln 1 g IM DAILY RF: 0 polyethylene glycol Powder 1 ea MISCELLANEOUS DAILY RF: 0 diphenhydramine HCl 25 MG capsule 25 mg PO BID PRN PRN (Reason: Itching) RF: 0 oxybutynin chloride 5 MG tablet 15 mg PO DAILY RF: 0 Referrals / Follow Up: Colby Valenzuela DO [Primary Care Provider] - Disposition Disposition (needs filled in before D/C Order can be placed): [facility]
--- NOTE | 2021-06-14 12:24 | NURSING ---
CPS Juliet notified of order for Stat ABG.
--- NOTE | 2021-06-14 12:25 | CT_ITS ---
INDICATION: Altered mental status EXAMINATION: CT BRAIN - CT Head or Brain W/O Contrast Injection TECHNIQUE: Multiple axial images were obtained of the head without intravenous contrast. A radiation dose optimization technique was used for this scan. IV contrast was not administered. COMPARISON: None. TECHNIQUE: A CT scan of the head was performed without IV contrast in the axial plane. Coronal and sagittal reconstruction images were also obtained. This exam was performed according to our departmental dose-optimization program, which includes automated exposure control, adjustment of the mA and/or kV according to patient size and/or use of iterative reconstruction technique. FINDINGS: The jl, medulla, and cerebellum appear to be normal. The ventricles and sulci are enlarged due to age-related cerebral atrophy.. The basal ganglia appear to be normal. The inner and outer tables of the skull are intact. 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 The frontal, ethmoid, maxillary, and sphenoid sinuses are normal. The mastoid air cells are normal. CT/Brain/Head without Contrast IMPRESSION: 1. Age-related cerebral atrophy. 2. 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 Electronically Signed: Kunal Chisholm DO at 13:30 EDT Tel , Service support ,
--- NOTE | 2021-06-14 12:30 | NURSING ---
roundhouse supervisor Jolly bedside and updated on pt's condition
--- NOTE | 2021-06-14 12:40 | NURSING ---
vinh CPS collected ABGs, minimal response during collection. Primary RN bedside. Sister Fabiana called, updated. aware she is on her way to hospital
[2021-06-14 12:51] LABS: Allen Test Positive; Base Excess 0 mmol/L (-2 to +2); Bicarbonate 23.7 mmol/L (22-26); Blood Gas Specimen Type ART; O2 Delivery Device Room Air; PO2 78 mmHG (75-100); SITE R Brach; SO2 96 % (95-99); Total Carbon Dioxide 25 mmol/L; pCO2 32.9 mmHg (35-45); pH 7.47 (7.35-7.45)
[2021-06-14 12:55] LABS: Bedside Glucose 99 mg/dL (70-110)
[2021-06-14 13:13] LABS: Pathologist Review Reviewed
[2021-06-14 13:23] LABS: Pathologist Review Reviewed
[2021-06-14 13:34] LABS: Pathologist Review Reviewed
--- NOTE | 2021-06-14 13:52 | PN.HOSP_ITS ---
Documented by User: Latonya Ivy NP, SEWING MACHINE OPERATOR Z[employer]-C 06/14/21 14:00 Subjective Subjective Patient noted to be lethargic this morning. Vital signs stable however difficult to arouse. No obvious neurologic or focal deficits however patient unable to participate with exam. Ammonia level pending. ABG unremarkable. Brain CT without acute process. Suspect secondary to sedating regimen. Objective Data Objective Data Vital Signs: Vital Signs Temp Pulse Resp BP Pulse Ox 98.2 F 102 H 18 171/91 H 100 06/14/21 12:20 06/14/21 12:20 06/14/21 12:20 06/14/21 12:20 06/14/21 12:20 Oxygen Flow Rate (L/min) 2 Oxygen Delivery Method Room Air Weight: 253 lb 8.505 oz Body Mass Index (BMI) 36.1 Intake & Output: Intake and Output for Last 24 Hours 06/12/21 06/13/21 06/14/21 23:59 23:59 23:59 Intake Total 2251.50 / 2251.50 2180.75 / 2180.75 287.25 / 287.25 Output Total 2845 / 2845 1353 / 1353 550 / 550 Balance -593.50 / -593.50 827.75 / 827.75 -262.75 / -262.75 Medical Nutrition Assessment Dietitian: Nutrition Therapy Diagnosis Start: 06/10/21 11:09 Freq: Status: Active Protocol: Document 06/10/21 11:49 BP (Rec: 06/10/21 11:50 BP [id number]) Nutrition Malnutrition Evidence of Malnutrition Exists No Intake Problem Increased Nutrient Needs (specify) Etiology protein related to wound healing Signs/Symptoms as evidenced by coccyx & left thigh pressure injury, left great toe abrasion. Status Active Problem Clinical Problem Unintended Weight Loss Etiology related to predicted suboptimal energy intake Signs/Symptoms as evidenced by 11% wt loss x 2 months. 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 Continue glucerna 120 ml 4x/ day w/ medpass. Will provide John 1 pkt BID to promote wound healing Lab / Micro Data Result Diagrams: 06/14/21 05:55 06/14/21 05:55 Labs: Laboratory Results - last 24 hr 06/12/21 07:46: Diff Path Review Reviewed 06/13/21 05:45: Diff Path Review Reviewed 06/13/21 12:45: Blood Type A POSITIVE, Antibody Screen NEGATIVE, Crossmatch See Detail 06/13/21 12:45: Vitamin B12 1047 H 06/14/21 05:55: WBC 2.3 L, RBC 3.18 L, Hgb 9.2 L, Hct 29.6 L, MCV 93.1, MCH 28.9, MCHC 31.1 L, RDW Std Deviation 51.7 H, RDW Coeff of Jessi 15.2 H, Plt Count 187, MPV 10.7, Immature Gran % (Auto) 0.400, Neut % (Auto) 50.9, Lymph % (Auto) 22.6, Vermilion % (Auto) 18.6 H, Eos % (Auto) 6.6 H, Baso % (Auto) 0.9, Absolute Neuts (auto) 1.2 L, Absolute Lymphs (auto) 0.51 L, Nucleated RBC % 0, Differential Comment SCANNED, Diff Path Review Reviewed 06/14/21 05:55: Sodium 142, Potassium 4.0, Chloride 112 H, Carbon Dioxide 27.0, Anion Gap 3 L, BUN 26 H, Creatinine 0.69, Estim Creat Clear Calc 49.79, Est GFR (MDRD) Af Amer 107, Est GFR (MDRD) Non-Af 88, BUN/Creatinine Ratio 37.6 H, Glucose 86, Calcium 8.1 L 06/14/21 12:12: POC Glucose 99 Micro: Microbiology 06/09/21 19:45 Blood Culture (Wb) - Port Blood Culture - Final GPC Poss Enterococcus sp 06/09/21 20:44 Blood Culture (Wb) - Left Hand Bacteria Detection (PCR) - Final Enterococcus faecium 06/09/21 20:44 Blood Culture (Wb) - Left Hand Blood Culture - Final Enterococcus faecium 06/09/21 20:50 Urine, Nephrostomy Urine Culture - Final Acinetobacter baumannii 06/10/21 00:58 Mucosa - Nasopharyngeal Respiratory Panel (PCR) - Final 06/10/21 01:55 Mucosa - Nose SARS-CoV-2 Antigen (Rapid) - Final ABG Data ABG results: ABG 06/14/21 12:44 Specimen Type ART Sample Site R Brach pH 7.47 H Bicarbonate Actual 23.7 Total CO2 25 Base Excess 0 O2 Saturation 96 ABG pCO2 32.9 L ABG pO2 78 Baljinder Test Positive O2 Delivery Device Room Air Radiography Diagnostic Testing: Radiology Impression Brain CT 06/14/21 12:25 IMPRESSION: 1. Age-related cerebral atrophy. 2. 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 Electronically Signed: Kunal Chisholm at 13:30 EDT Tel , Service support , Physical Exam Const no apparent distress Orientation / Consciousness: lethargic Exam Limitations: altered mental status Nutritional Appearance: obese HEENT normocephalic and moist oral mucous membranes Eyes PERRL, EOMs intact bilaterally and conjunctivae normal Neck no lymphadenopathy Resp normal respiratory effort and clear to auscultation bilaterally Cardio regular rate, regular rhythm and no murmurs Peripheral Pulses: pulses 2+ throughout GI normal to inspection, nondistended, normoactive bowel sounds, non-tender and non-distended Extremity normal to inspection Skin no rashes or lesions noted Skin Narrative: Abdominal skin fold intertrigo with significant excoriation and erythema, erythema under bilateral breasts. Lesions: no lesions Rashes: no rashes Trauma: no lacerations or abrasions Neuro CN's II-XII intact bilaterally, no focal motor deficits, no sensory deficits noted and deep tendon reflexes 2+ bilaterally Psych mental status grossly normal and affect normal Assessment & Plan Assessment/Plan (1) MICHAELLE (acute kidney injury): (2) Encephalopathy: PLAN: 1. Acute encephalopathy, infectious and metabolic-treat underlying infection. Hold sedating regimen. Baclofen on hold. Gabapentin reduced, hold for lethargy. 2. Abdominal cellulitis and UTI with Enterococcus bacteremia- Urine culture from nephrostomy tube growing Acinetobacter. ID consulted. Suprapubic catheter changed by urology. On linezolid, methenamine. 3. Recent complicated UTI-status post nephrostomy tube placement and ureteral stents. Urology consulted, suprapubic catheter changed. Antibiotics as noted above. 4. Remarkable abdominal fold and breast area intertrigo-topical nystatin. Keep area clean and dry. 5. Type 2 diabetes mellitus-hemoglobin A1c less than 3.8%? Accu-Cheks discontinued. 6. Hypertension-not on regimen. As needed hydralazine for elevated blood pressure. 7. Hyperlipidemia-continue statin. 8. Paroxysmal atrial fibrillation-not on anticoagulation or rate limiting regimen. 9. Morbid obesity-encouraged diet and lifestyle modifications. 10. Anxiety/Depression- on venlafaxine. 11. VITA-continue PAP therapy. 12. Acute on Chronic normocytic anemia-1 unit PRBC ordered for hemoglobin 7.1. PPI twice daily. Check stool for occult blood. Iron studies fairly normal. Hemoglobin now stable, 9.2. Trend CBC. DVT prophylaxis-Lovenox subcu Discharge plan: Return to SNF when medically stable. This patient was seen by DEDRICK Simmons under the supervision of Dr. العلي. Documented by User: Dr. Lauro العلي MD 06/14/21 14:17 Subjective Subjective Patient was little slow yesterday but she is more lethargic, eyes closed, not wa richie up although respiratory rate is normal. ABG and CT head was done. I talked to the patient's sister near the bedside. Objective Data Lab / Micro Data Result Diagrams: 06/14/21 05:55 06/14/21 05:55 Physical Exam Narrative I saw the patient in the morning and afternoon. I talked to the patient's sister near the bedside. No change in responsiveness since morning. General: Obtunded, unresponsive, unconscious. HEENT: Atraumatic, PERRLA, EOMI, Normocephalic Oral: No Gingival or Mucosal Lesions/ Ulcerations Neck: Supple, No JVD, Negative Carotid Bruits Lungs: Air entry diminished in bilateral lung bases. No crepitation/rhonchi Cardiovascular: Sinus rhythm, Normal S1, Normal S2, No murmurs Abdomen: Bowel Sounds Present, Soft, Non Tender, Non-Distended : Suprapubic catheter. No renal angle tenderness. No suprapubic tenderness. Extremities: Bilateral leg edema improving, Capillary Refill Less than 3 Seconds Skin: Decubitus ulcer over back. Unstageable. Intertriginous rash over the abdominal fold and groin Musculoskeletal: Tenderness to Palpation of Joints or Extremities. ROM re stricted. Bedbound/wheelchair bound. Neurological: Cranial nerves II-XII grossly intact, Deep Tendon Reflexes 2+/4 and Symmetrical, Neuro grossly intact Psych/Mental Status: Unresponsive Assessment & Plan Assessment/Plan (1) Encephalopathy: PLAN: This patient was seen in conjunction with SEWING MACHINE OPERATOR ZIPPER, Latonya. I have independently interviewed and examined the patient and reviewed pertinent history, examination findings, laboratory and plan of management. I have reviewed the note and agree with the documented findings with the few additional points. In brief, patient is admitted for acute encephalopathy for several days with confusion, inattentive. Patient also has complicated UTI. Patient was recently evaluated [facility] and had left sided nephrostomy tube and right ureteral stent for staghorn calculus and history of recurrent UTI. CT abdomen shows left-sided perinephric inflammation with no hydronephrosis. Left-sided percutaneous nephrostomy and bilateral renal calculi. Patient is scheduled for urology follow-up on June 14 in [facility]. Urologist Dr. Zavala was consulted and she change the suprapubic catheter. ID consult reviewed and appreciated. Patient is on IV meropenem and linezolid with history of Pseudomonas and VRE. Blood culture is growing Enterococcus feceium. Urine culture is growing Acinetobacter Baumanii resistant to piperacillin and other antibiotics only sensitive to gentamicin and tobramycin. Discussed with ID. Advised to continue Zosyn as patient is improving and risk/benefit analysis of clinical situation does not favor aminoglycoside. Acute encephalopathy/impaired responsiveness probably due to polypharmacy: Patient is on baclofen which has been discontinued since yesterday. Gabapentin is also on hold. ABG 7.4 // on ambient air. CT head did not show acute change. On 06/14, I talked to the patient sister near the bedside and gave the clinical update. She was transfused 1 unit PRBC yesterday and hemoglobin went up from 7.1-9.2. I again revisited the CODE STATUS and she had found that she wanted full code. Her prognosis is guarded in view of multiple comorbidities, MDR bacteremia and in urine. Wound care nurse has been consulted for unstagable sacral decubitus ulcer Other multiple comorbidities as mentioned above Total time of the visit including total time spent in counseling or coordination of care, (more than 50% of the total time, spent in obtaining medical information from nurses and other ancillary care providers,explaining to the patient about labs, imaging, diagnosis and management), discussion with sister, review of labs and imaging is 30 minutes. I have discussed my assessment with SEWING MACHINE OPERATOR ZIPPERLatonya and orders have been reviewed. Charges/Coding Visit Charges Inpatient E&M: 45173 Subs Hosp L3
[2021-06-14] MEDS: Lactulose 20 GM/30 ML UDC 200 GM RC (19:34)
[2021-06-15] VITALS (11 sets, daily range): BP systolic 104–143; BP diastolic 54–80; PULSE 96–122; RESP 14–18; TEMP 36.1–37; O2SAT 94–100
[2021-06-15] MEDS: Lactulose 20 GM/30 ML UDC 200 GM RC ×3 (05:05→22:03)
[2021-06-15 06:18] LABS: Absolute Lymphocyte Count 0.65 X10^3/uL (0.83-4.51); Absolute Neutrophil Count 2.2 X10^3/uL (2.0-7.7); Basophil# 0.05 X10^3/uL; Basophil% 1.4 % (0-1); Eosinophil# 0.25 X10^3/uL; Eosinophils% 6.8 % (0-5); Hematocrit 34.1 % (37-47); Hemoglobin 10.5 g/dL (12.0-15.0); Lymphocyte # 0.65 X10^3/ul (0.83-4.51); Lymphocyte % 17.7 % (19-41); Mean Corp Hgb Conc 30.8 g/dL (32-36); Mean Corpuscular Volume 94.2 fL (81-99); Mean Platelet Vol. 10.2 fl (6.2-12.0); Monocyte# 0.51 X10^3/uL; Monocyte% 13.9 % (0-10); NRBC Flagged by Analyzer 0 % (0-5); Neutrophil # 2.19 X10^3/uL (2.7-7.7); Neutrophil % 59.4 % (47-70); Platelet Count 227 K/mm3 (150-450); RBC Distribution Width CV 15.5 % (11.6-14.6); RBC Distribution Width SD 53.6 fl (35.1-43.9); Red Blood Count 3.62 M/mm3 (4.2-5.4); White Blood Count 3.7 K/mm3 (4.4-11.0)
[2021-06-15] MEDS: Menthol/Lanolin/Calamine/Znox 113 GM Tube 1 APPLIC TOPICAL ×3 (06:18→22:03)
[2021-06-15 06:42] LABS: Anion Gap 3 (5-15); BUN 27 mg/dL (7-18); BUN/Creat Ratio 37.1 RATIO (10-20); Calcium,Total 8.2 mg/dL (8.5-10.1); Chloride 113 mmol/L (98-107); Creatinine, Serum 0.73 mg/dL (0.55-1.02); EST Glomerular Filtration Rate 83 mL/min (>60); Est Glom Filt Rate - Afr Amer 100 mL/min (>60); Estimated Creatinine Clearance 49.79 ml/min; Glucose 79 mg/dL (74-106); Potassium 3.8 mmol/L (3.5-5.1); Sodium Level 141 mmol/L (136-145)
--- NOTE | 2021-06-15 09:43 | PN.HOSP_ITS ---
Documented by User: Latonya Ivy NP, [employer] 06/15/21 10:19 Subjective Subjective Patient seen and examined. Sister at bedside. Patient awakens briefly to voice, remains lethargic. No evidence of distress noted. Objective Data Objective Data Vital Signs: Vital Signs Temp Pulse Resp BP Pulse Ox 97.8 F 122 H 16 143/80 H 100 06/15/21 08:10 06/15/21 08:10 06/15/21 08:10 06/15/21 08:10 06/15/21 08:10 Oxygen Flow Rate (L/min) 2 Oxygen Delivery Method Room Air Weight: 250 lb 0.067 oz Body Mass Index (BMI) 36.1 Intake & Output: Intake and Output for Last 24 Hours 06/13/21 06/14/21 06/15/21 23:59 23:59 23:59 Intake Total 2180.75 / 2180.75 287.25 / 287.25 Output Total 1353 / 1353 2040 / 2040 500 / 500 Balance 827.75 / 827.75 -1752.75 / -1752.75 -500 / -500 Medical Nutrition Assessment Dietitian: Nutrition Therapy Diagnosis Start: 06/10/21 11:09 Freq: Status: Active Protocol: Document 06/14/21 15:43 YULIYA (Rec: 06/14/21 15:43 SLA [id number]) Nutrition Malnutrition Evidence of Malnutrition Exists No Intake Problem Inadequate Oral Intake Etiology related to increased lethargy Signs/Symptoms as evidenced by poor po intake over the weekend and nothing to eat today. Status Active Problem Increased Nutrient Needs (specify) Etiology protein related to wound healing Signs/Symptoms as evidenced by coccyx & left thigh pressure injury, left great toe abrasion. Status Active Problem Clinical Problem Unintended Weight Loss Etiology related to predicted suboptimal energy intake Signs/Symptoms as evidenced by 11% wt loss x 2 months. Status Active Problem Recommendation Dietitian Recommendations/Changes Will liberalize pt to regular diet as pt with unintentional wt loss & pt w/ poor po intake / refusing meals at this time. Continue glucerna 120 ml 4x/ day w/ medpass. Will continue to provide John 1 pkt BID to promote wound healing if consumed. Lab / Micro Data Result Diagrams: 06/15/21 05:52 06/15/21 05:52 Labs: Laboratory Results - last 24 hr 06/12/21 07:46: Diff Path Review Reviewed 06/13/21 05:45: Diff Path Review Reviewed 06/14/21 05:55: Diff Path Review Reviewed 06/14/21 05:55: Magnesium 2.0 06/14/21 12:12: POC Glucose 99 06/14/21 16:10: Ammonia 122.0 H 06/15/21 05:52: WBC 3.7 L, RBC 3.62 L, Hgb 10.5 L, Hct 34.1 L, MCV 94.2, MCH 29.0, MCHC 30.8 L, RDW Std Deviation 53.6 H, RDW Coeff of Jessi 15.5 H, Plt Count 227, MPV 10.2, Immature Gran % (Auto) 0.800, Neut % (Auto) 59.4, Lymph % (Auto) 17.7 L, Archuleta % (Auto) 13.9 H, Eos % (Auto) 6.8 H, Baso % (Auto) 1.4 H, Absolute Neuts (auto) 2.2, Absolute Lymphs (auto) 0.65 L, Nucleated RBC % 0 06/15/21 05:52: Sodium 141, Potassium 3.8, Chloride 113 H, Carbon Dioxide 25.0, Anion Gap 3 L, BUN 27 H, Creatinine 0.73, Estim Creat Clear Calc 49.79, Est GFR (MDRD) Af Amer 100, Est GFR (MDRD) Non-Af 83, BUN/Creatinine Ratio 37.1 H, Glucose 79, Calcium 8.2 L Micro: Microbiology 06/09/21 19:45 Blood Culture (Wb) - Port Blood Culture - Final GPC Poss Enterococcus sp 06/14/21 21:45 Stool Stool Occult Blood (WENDI) - Final 06/09/21 20:44 Blood Culture (Wb) - Left Hand Bacteria Detection (PCR) - Final Enterococcus faecium 06/09/21 20:44 Blood Culture (Wb) - Left Hand Blood Culture - Final Enterococcus faecium 06/09/21 20:50 Urine, Nephrostomy Urine Culture - Final Acinetobacter baumannii 06/10/21 00:58 Mucosa - Nasopharyngeal Respiratory Panel (PCR) - Final 06/10/21 01:55 Mucosa - Nose SARS-CoV-2 Antigen (Rapid) - Final ABG Data ABG results: ABG 06/14/21 12:44 Specimen Type ART Sample Site R Brach pH 7.47 H Bicarbonate Actual 23.7 Total CO2 25 Base Excess 0 O2 Saturation 96 ABG pCO2 32.9 L ABG pO2 78 Baljinder Test Positive O2 Delivery Device Room Air Radiography Diagnostic Testing: Radiology Impression Brain CT 06/14/21 12:25 IMPRESSION: 1. Age-related cerebral atrophy. 2. 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 Electronically Signed: Kunal ChisholmDO at 13:30 EDT Tel , Service support , Physical Exam Const no apparent distress Orientation / Consciousness: awake, oriented to person, oriented to place, ravinder ented to time and lethargic Nutritional Appearance: obese HEENT normocephalic Mouth: dry mucous membranes Eyes PERRL, EOMs intact bilaterally and conjunctivae normal Neck no lymphadenopathy Resp clear to auscultation bilaterally Auscultation: diminished lung sounds Cardio regular rate, regular rhythm and no murmurs Peripheral Pulses: pulses 2+ throughout GI normal to inspection, nondistended, normoactive bowel sounds, non-tender and non-distended Extremity normal to inspection Skin no rashes or lesions noted Skin Narrative: Abdominal skin fold intertrigo with significant excoriation and erythema, erythema under bilateral breasts. Lesions: no lesions Rashes: no rashes Trauma: no lacerations or abrasions Neuro CN's II-XII intact bilaterally, no focal motor deficits, no sensory deficits noted and deep tendon reflexes 2+ bilaterally Psych mental status grossly normal and affect normal Assessment & Plan Assessment/Plan (1) Encephalopathy: (2) Cellulitis of left abdominal wall: PLAN: 1. Acute encephalopathy, infectious and metabolic-initially due to infection however currently suspect secondary to polypharmacy. Hold sedating regimen. Baclofen and gabapentin on hold. Venlafaxine on hold due to interaction with Zyvox which can cause serotonin syndrome. Continue lactulose suppositories for elevated ammonia. Mental status improved from prior. Remains lethargic however arousable to voice. 2. Abdominal cellulitis and UTI with Enterococcus bacteremia- Urine culture from nephrostomy tube growing Acinetobacter. ID consulted. Suprapubic catheter changed by urology. On linezolid, methenamine. 3. Recent complicated UTI-status post nephrostomy tube placement and ureteral stents. Urology consulted, suprapubic catheter changed. Antibiotics as noted above. 4. Remarkable abdominal fold and breast area intertrigo-topical nystatin. Keep area clean and dry. 5. Type 2 diabetes mellitus-hemoglobin A1c less than 3.8%? Accu-Cheks discontinued. 6. Hypertension-not on regimen. As needed hydralazine for elevated blood pressure. 7. Hyperlipidemia-continue statin. 8. Paroxysmal atrial fibrillation-not on anticoagulation or rate limiting regimen. 9. Morbid obesity-encouraged diet and lifestyle modifications. 10. Anxiety/Depression- on venlafaxine. 11. VITA-continue PAP therapy. 12. Acute on Chronic normocytic anemia-S/P 1 unit PRBC. PPI twice daily. Stool for occult blood negative. Iron studies fairly normal. Hemoglobin now stable. Trend CBC. DVT prophylaxis-Lovenox subcu Discharge plan: Return to SNF when medically stable. This patient was seen by SHAWNA SimmonsC under the supervision of Dr. العلي. Documented by User: Dr. Lauro العلي MD 06/15/21 13:05 Subjective Subjective Patient briefly opens eyes on verbal command sometimes. She is on IV fluid D5 half NS for nutritional support. Discussed with ID Objective Data Lab / Micro Data Result Diagrams: 06/15/21 05:52 06/15/21 05:52 Physical Exam Narrative Seen and examined with HANANE Hanks We talked to the patient's sister near the bedside. Patient seems more wakeful as compared to yesterday with trying to open eyes. General: Obtunded, unconscious HEENT: Atraumatic, PERRLA, EOMI, Normocephalic Oral: No Gingival or Mucosal Lesions/ Ulcerations Neck: Supple, No JVD, Negative Carotid Bruits Lungs: Air entry diminished in bilateral lung bases. No crepitation/rhonchi Cardiovascular: Sinus rhythm, Normal S1, Normal S2, No murmurs Abdomen: Bowel Sounds Present, Soft, Non Tender, Non-Distended : Suprapubic catheter. No renal angle tenderness. No suprapubic tenderness. Extremities: Bilateral leg edema improving, Capillary Refill Less than 3 Seconds Skin: Decubitus ulcer over back. Unstageable. Intertriginous rash over the abdominal fold and groin Musculoskeletal: Tenderness to Palpation of Joints or Extremities. ROM restricted. Bedbound/wheelchair bound. Neurological: Cranial nerves II-XII grossly intact, Deep Tendon Reflexes 2+/4 and Symmetrical, Neuro grossly intact Psych/Mental Status: Unresponsive Assessment & Plan Assessment/Plan (1) Encephalopathy: PLAN: This patient was seen in conjunction with SUPER[employer] SERVICES, Latonya. I have independently interviewed and examined the patient and reviewed pertinent history, examination findings, laboratory and plan of management. I have reviewed the note and agree with the documented findings with the few additional points. In brief, patient is admitted for acute encephalopathy for several days with c onfusion, inattentive. Patient also has complicated UTI. Patient was recently evaluated [facility] and had left sided nephrostomy tube and right ureteral stent for staghorn calculus and history of recurrent UTI. CT abdomen shows left-sided perinephric inflammation with no hydronephrosis. Left-sided percutaneous nephrostomy and bilateral renal calculi. Patient is scheduled for urology follow-up on June 14 in [facility]. Urologist Dr. Zavala was consulted and she change the suprapubic catheter. Blood culture is growing Enterococcus feceium. Urine culture is growing Acinetobacter Baumanii resistant to meropenem and other antibiotics only sensitive to gentamicin and tobramycin. Discussed with ID. Initially, patient is on IV meropenem and linezolid with history of Pseudomonas and VRE but as patient got more encephalopathic probably linezolid interaction with venlafaxine which already has been discontinued. Linezolid is changed to vancomycin. Discussed with the ID and patient's sister near the bedside. IV fluid D5 half NS for nutritional support Acute encephalopathy/impaired responsiveness probably due to polypharmacy: Patient is on baclofen which has been discontinued since yesterday. Gabapentin is also on hold. ABG 7.4 / on ambient air. CT head did not show acute change. She was transfused 1 unit PRBC yesterday and hemoglobin went up from 7.1-9.2. I again revisited the CODE STATUS and she had found that she wanted full code. Her prognosis is guarded in view of multiple comorbidities, MDR bacteremia and in urine. On 06/15, I talked to the patient sister near the bedside and gave the clinical update. Wound care nurse has been consulted for unstagable sacral decubitus ulcer Other multiple comorbidities as mentioned above Total time of the visit including total time spent in counseling or coordination of care, (more than 50% of the total time, spent in obtaining medical information from nurses and other ancillary care providers,explaining to the patient about labs, imaging, diagnosis and management), discussion with sister and senior compensation consultant, review of labs and imaging is 30 minutes. I have discussed my assessment with SUPERVISOR SPECIAL SERVICESLatonya and orders have been reviewed Charges/Coding Visit Charges Inpatient E&M: 40106 Subs Hosp L3
[2021-06-15] MEDS: Dext 5%-0.45% NS 1,000 ML 50 ML IV (09:55)
[2021-06-15] MEDS: 0.9% Saline Lock 10 ML Syringe IV (10:00)
[2021-06-15] MEDS: Enoxaparin 40 MG/0.4 ML Syringe SC (10:01)
--- NOTE | 2021-06-15 10:04 | NURSING ---
wound photo: sacrum
--- NOTE | 2021-06-15 11:28 | CASEMGMT ---
TONI MARTINES NOTE: Spoke w/Carolina @ [facility]. Pt is active w/P[facility]iative Care. She is aware of pt's admission to [facility]. Sabina CHUA RN, CM
--- NOTE | 2021-06-15 14:00 | PCM.PN.ID ---
Physical Exam Narrative Worsened mental status, no fever Const Orientation / Consciousness: lethargic Resp clear to auscultation bilaterally Cardio regular rate and regular rhythm GI normal to inspection, nondistended, normoactive bowel sounds Skin no rashes or lesions noted ID ID: Route of nutrition/ use of supplements: [] Nutritional Intake: [] IV Site: [] Henry Catheter: [] Assessment & Plan Assessment/Plan (1) Encephalopathy: PLAN: Bcx x2 with enterococcus, not VRE. Ucx with AcB. Concern for uti, cellulitis. Recent h/o pseudomonas and VRE, now on linezolid for 10 days total. On methenamine. Off wenceslao. With worsened mental status, will change linezolid to iv vanc. Will follow (2) Cellulitis of left abdominal wall:
--- NOTE | 2021-06-15 14:49 | NURSING ---
NEPHROSTOMY DRAINAGE TUBE, DRESSING, AND COLLECTION BAG CHANGED WITH ASSIST X3. DRAINAGE IS YELLOW/PINK/PURULENT OF THIN MUCOUS CONSISTENCY. TONI SOTOMAYOR AWARE OF CHANGE.
[2021-06-15] MEDS: Nystatin Powder 15gm Bottle 1 APPLIC TOPICAL ×2 (15:26→22:04)
--- NOTE | 2021-06-15 16:07 | PCM.RX.CS ---
Consult Pharmacy has been consulted to manage selected antiobiotic: Vancomycin Type of Consult: New start Suspected Infection: Skin/Soft tissue Labs: Sodium 141 mmol/L (136-145) 06/15/21 05:52 Potassium 3.8 mmol/L (3.5-5.1) 06/15/21 05:52 Chloride 113 mmol/L (98-107) H 06/15/21 05:52 Carbon Dioxide 25.0 mmol/L (21.0-32.0) 06/15/21 05:52 Anion Gap 3 (5-15) L 06/15/21 05:52 BUN 27 mg/dL (7-18) H 06/15/21 05:52 Creatinine 0.73 mg/dL (0.55-1.02) 06/15/21 05:52 Est GFR (MDRD) Af Amer 100 mL/min (>60) 06/15/21 05:52 Est GFR (MDRD) Non-Af 83 mL/min (>60) 06/15/21 05:52 BUN/Creatinine Ratio 37.1 RATIO (10-20) H 06/15/21 05:52 Glucose 79 mg/dL (74-106) 06/15/21 05:52 Vancomycin Trough 22.0 ug/mL (5.0-15.0) H 06/11/21 10:27 Microbiology: Microbiology 06/09/21 19:45 Blood Culture (Wb) - Port Blood Culture - Final GPC Poss Enterococcus sp 06/14/21 21:45 Stool Stool Occult Blood (WENDI) - Final 06/09/21 20:44 Blood Culture (Wb) - Left Hand Bacteria Detection (PCR) - Final Enterococcus faecium 06/09/21 20:44 Blood Culture (Wb) - Left Hand Blood Culture - Final Enterococcus faecium 06/09/21 20:50 Urine, Nephrostomy Urine Culture - Final Acinetobacter baumannii 06/10/21 00:58 Mucosa - Nasopharyngeal Respiratory Panel (PCR) - Final 06/10/21 01:55 Mucosa - Nose SARS-CoV-2 Antigen (Rapid) - Final Goal Trough: 15-20 mcg/mL Pharmacy Plan for Drug Dosing: NEW START IV VANCOMYCIN Consulting Physician: Mark Indication: Abdominal Cellulitis Goal Trough: 15-20 SrCr: 0.8 (adjusted for age) CrCl: 50mls/min Comments: dosing based off of clinical pharmacology dosing calculator. Vancomcyin Dose: pt received a 2000mg loading dose on 06/15/21 at 1530. based on pts weight and renal function, recommend an initial dose of 1250mg q12h starting 06/16/21 at 0400. Trough to be drawn before the 4th total dose Pending Level: 06/17/21 at 0330 Pharmacy Service will continue to monitor and adjust dosing as required. Follow-Up Labs: Trough Vancomycin - 06/17/21 at 0330
[2021-06-16] VITALS (9 sets, daily range): BP systolic 136–155; BP diastolic 79–89; PULSE 83–126; RESP 18; TEMP 36.7–36.8; O2SAT 97–100
[2021-06-16] MEDS: Dext 5%-0.45% NS 1,000 ML 50 ML IV (04:19)
[2021-06-16] MEDS: Lactulose 20 GM/30 ML UDC 200 GM RC (05:12)
[2021-06-16] MEDS: Menthol/Lanolin/Calamine/Znox 113 GM Tube 1 APPLIC TOPICAL ×2 (05:12→14:28)
[2021-06-16] MEDS: Nystatin Powder 15gm Bottle 1 APPLIC TOPICAL ×2 (05:13→14:28)
[2021-06-16 06:38] LABS: Absolute Lymphocyte Count 0.86 X10^3/uL (0.83-4.51); Absolute Neutrophil Count 2.2 X10^3/uL (2.0-7.7); Basophil# 0.05 X10^3/uL; Basophil% 1.3 % (0-1); Eosinophil# 0.22 X10^3/uL; Eosinophils% 5.6 % (0-5); Hematocrit 38.3 % (37-47); Hemoglobin 11.2 g/dL (12.0-15.0); Lymphocyte # 0.86 X10^3/ul (0.83-4.51); Mean Corp Hgb Conc 29.2 g/dL (32-36); Mean Corpuscular Hgb 29.5 pg (27.0-32.0); Mean Corpuscular Volume 100.8 fL (81-99); Monocyte# 0.56 X10^3/uL; Monocyte% 14.3 % (0-10); NRBC Flagged by Analyzer 0 % (0-5); Neutrophil % 56.3 % (47-70); Platelet Count 210 K/mm3 (150-450); RBC Distribution Width CV 15.6 % (11.6-14.6); RBC Distribution Width SD 57.6 fl (35.1-43.9); White Blood Count 3.9 K/mm3 (4.4-11.0)
[2021-06-16 06:55] LABS: ALB/GLOB Ratio 0.3 RATIO (0.9-2.4); AST(SGOT) 39 U/L (15-37); Alanine Aminotransfer ALT/SGPT 30 U/L (13-56); Albumin, Serum 1.6 g/dL (3.2-5.0); Alkaline Phosphatase 88 U/L (45-117); Anion Gap 6 (5-15); BUN 24 mg/dL (7-18); Calcium,Total 8.1 mg/dL (8.5-10.1); Chloride 113 mmol/L (98-107); Creatinine, Serum 0.78 mg/dL (0.55-1.02); EST Glomerular Filtration Rate 77 mL/min (>60); Est Glom Filt Rate - Afr Amer 93 mL/min (>60); Estimated Creatinine Clearance 49.79 ml/min; Globulin 4.6 g/dL (2.2-4.2); Glucose 76 mg/dL (74-106); Potassium 3.4 mmol/L (3.5-5.1); Protein, Total 6.2 g/dL (6.4-8.2); Sodium Level 143 mmol/L (136-145)
[2021-06-16] MEDS: Acetaminophen 325 MG Tablet 650 MG PO ×3 (07:33→18:31)
[2021-06-16] MEDS: Aspirin 81 MG TAB.CHEW PO (07:33)
[2021-06-16] MEDS: Enoxaparin 40 MG/0.4 ML Syringe SC (09:44)
[2021-06-16] MEDS: Glucerna Shake 120 ML LIQUID PO ×3 (09:44→18:26)
[2021-06-16] MEDS: Tolterodine Tartrate 4 MG CAP.SA PO (09:44)
[2021-06-16] MEDS: Methenamine Hippurate 1 GM Tablet PO (09:44)
[2021-06-16] MEDS: Pantoprazole Sodium 40 MG Tablet PO (09:44)
--- NOTE | 2021-06-16 09:57 | NURSING ---
pt more alert, appropriate. called visual communications instructor Lety, discussed changing dressing on nephrostomy tube. assisted patient with calling sister Fabiana, update given. pt given bath and repostioned by natural resources professor. pillow cases/callie reapplied. call light within reach.
--- NOTE | 2021-06-16 10:20 | NURSING ---
assisted Lety receiving tank operator changing Nephrostomy tube, noted sutures not secured to patient. discussed talking w/ physician about concern of placement. Maggie casino accountant nurse in and changed dressing to coccyx, mepilex applied to distal aspect of nephrostomy drsg where open area, and applied lotion to feet. pt repositioned. no further needs voiced. and Latonya Ivy sent text.
--- NOTE | 2021-06-16 10:32 | CASEMGMT ---
As per physician, pt may be ready for discharge this afternoon. SW called Tana, spoke w/Adrianna, updates faxed. ELIAS will continue to follow. CLIFFORD Beasley
--- NOTE | 2021-06-16 13:49 | PCM.PN.HOSP ---
Documented by User: Latonya Ivy NP, MANAGER CORPORATE RESPONSIBILITY-C 06/16/21 14:08 Subjective Subjective Patient seen and examined. Mental status improved today, remains confused however much more alert. No acute events overnight. Objective Data Objective Data Vital Signs: Vital Signs Temp Pulse Resp BP Pulse Ox 98.1 F 126 H 18 136/84 H 99 06/16/21 07:25 06/16/21 10:55 06/16/21 07:25 06/16/21 07:25 06/16/21 07:25 Oxygen Flow Rate (L/min) 2 Oxygen Delivery Method Room Air Weight: 251 lb 1.6 oz Body Mass Index (BMI) 36.1 Intake & Output: Intake and Output for Last 24 Hours 06/14/21 06/15/21 06/16/21 23:59 23:59 23:59 Intake Total 287.25 / 287.25 864.17 / 864.17 1451.66 / 1451.66 Output Total 2040 / 2040 1420 / 1420 1525 / 1525 Balance -1752.75 / -1752.75 -555.83 / -555.83 -73.34 / -73.34 Medical Nutrition Assessment Dietitian: Nutrition Therapy Diagnosis Start: 06/10/21 11:09 Freq: Status: Active Protocol: Document 06/14/21 15:43 YULIYA (Rec: 06/14/21 15:43 YULIYA [id number]) Nutrition Malnutrition Evidence of Malnutrition Exists No Intake Problem Inadequate Oral Intake Etiology related to increased lethargy Signs/Symptoms as evidenced by poor po intake over the weekend and nothing to eat today. Status Active Problem Increased Nutrient Needs (specify) Etiology protein related to wound healing Signs/Symptoms as evidenced by coccyx & left thigh pressure injury, left great toe abrasion. Status Active Problem Clinical Problem Unintended Weight Loss Etiology related to predicted suboptimal energy intake Signs/Symptoms as evidenced by 11% wt loss x 2 months. Status Active Problem Recommendation Dietitian Recommendations/Changes Will liberalize pt to regular diet as pt with unintentional wt loss & pt w/ poor po intake / refusing meals at this time. Continue glucerna 120 ml 4x/ day w/ medpass. Will continue to provide John 1 pkt BID to promote wound healing if consumed. Lab / Micro Data Result Diagrams: 06/16/21 06:22 06/16/21 06:22 Labs: Laboratory Results - last 24 hr 08/04/21 06:22: WBC 3.9 L, RBC 3.80 L, Hgb 11.2 L, Hct 38.3, MCV 100.8 H D, MCH 29.5, MCHC 29.2 L D, RDW Std Deviation 57.6 H, RDW Coeff of Jessi 15.6 H, Plt Count 210, MPV 10.0, Immature Gran % (Auto) 0.500, Neut % (Auto) 56.3, Lymph % (Auto) 22.0, Bollinger % (Auto) 14.3 H, Eos % (Auto) 5.6 H, Baso % (Auto) 1.3 H, Absolute Neuts (auto) 2.2, Absolute Lymphs (auto) 0.86, Nucleated RBC % 0 06/16/21 06:22: Sodium 143, Potassium 3.4 L, Chloride 113 H, Carbon Dioxide 24.0, Anion Gap 6, BUN 24 H, Creatinine 0.78, Estim Creat Clear Calc 49.79, Est GFR (MDRD) Af Amer 93, Est GFR (MDRD) Non-Af 77, BUN/Creatinine Ratio 31.0 H, Glucose 76, Calcium 8.1 L, Total Bilirubin 0.40, AST 39 H, ALT 30, Alkaline Phosphatase 88, Total Protein 6.2 L, Albumin 1.6 L, Globulin 4.6 H, Albumin/Globulin Ratio 0.3 L 06/16/21 06:22: Ammonia 25.0 Micro: Microbiology 06/09/21 19:45 Blood Culture (Wb) - Port Blood Culture - Final GPC Poss Enterococcus sp 06/14/21 21:45 Stool Stool Occult Blood (WENDI) - Final 06/09/21 20:44 Blood Culture (Wb) - Left Hand Bacteria Detection (PCR) - Final Enterococcus faecium 06/09/21 20:44 Blood Culture (Wb) - Left Hand Blood Culture - Final Enterococcus faecium 06/09/21 20:50 Urine, Nephrostomy Urine Culture - Final Acinetobacter baumannii 06/10/21 00:58 Mucosa - Nasopharyngeal Respiratory Panel (PCR) - Final 06/10/21 01:55 Mucosa - Nose SARS-CoV-2 Antigen (Rapid) - Final Physical Exam Const alert and no apparent distress Orientation / Consciousness: awake HEENT normocephalic and moist oral mucous membranes Eyes PERRL, EOMs intact bilaterally and conjunctivae normal Neck no lymphadenopathy Resp clear to auscultation bilaterally Auscultation: diminished lung sounds Cardio regular rate, regular rhythm and no murmurs Peripheral Pulses: pulses 2+ throughout GI normal to inspection, nondistended, normoactive bowel sounds, non-tender and non-distended Extremity normal to inspection Skin no rashes or lesions noted Skin Narrative: Abdominal skin fold intertrigo with significant excoriation and erythema, erythema under bilateral breasts. Lesions: no lesions Rashes: no rashes Trauma: no lacerations or abrasions Neuro CN's II-XII intact bilaterally, no focal motor deficits, no sensory deficits noted and deep tendon reflexes 2+ bilaterally Psych mental status grossly normal and affect normal Assessment & Plan Assessment/Plan (1) Encephalopathy: (2) Cellulitis of left abdominal wall: PLAN: 1. Acute encephalopathy, infectious and metabolic-initially due to infection however currently suspect secondary to polypharmacy. Improved with holding sedating regimen. Resume baclofen and gabapentin at decreased dose. Venlafaxine on hold due to interaction with Zyvox which can cause serotonin syndrome. Patient received lactulose suppositories for elevated ammonia, now normalized. Remains confused however much more alert, mental status improving. 2. Abdominal cellulitis and UTI with Enterococcus bacteremia- Urine culture from nephrostomy tube growing Acinetobacter. ID consulted. Suprapubic catheter changed by urology. Linezolid discontinued. On methenamine. Continue IV Vanco. 3. Recent complicated UTI-status post nephrostomy tube placement and ureteral stents. Urology consulted, suprapubic catheter changed. Antibiotics as noted above. Patient will follow up in [place] for further urologic procedure however has had recurrent infections/admissions in the meantime. 4. Remarkable abdominal fold and breast area intertrigo-topical nystatin. Keep area clean and dry. 5. Type 2 diabetes mellitus-hemoglobin A1c less than 3.8%? Accu-Cheks discontinued. 6. Hypertension-not on regimen. As needed hydralazine for elevated blood pressure. 7. Hyperlipidemia-continue statin. 8. Paroxysmal atrial fibrillation-not on anticoagulation or rate limiting regimen. 9. Morbid obesity-encouraged diet and lifestyle modifications. 10. Anxiety/Depression- on venlafaxine. 11. VITA-continue PAP therapy. 12. Acute on Chronic normocytic anemia-S/P 1 unit PRBC. PPI twice daily. Stool for occult blood negative. Iron studies fairly normal. Hemoglobin now stable. Trend CBC. DVT prophylaxis-Lovenox subcu Discharge plan: Return to SNF when medically stable. Will need follow-up at [facility] for urology care. This patient was seen by SHAWNA SimmonsC under the supervision of Dr. العلي. Documented by User: Dr. Lauro العلي MD 06/16/21 14:58 Subjective Subjective Mental status is improved patient is still mildly confused and disoriented. Nurse notified and concern about actual placement of nephrostomy tube. Urologist Dr. Zavala has been consulted for nephrostomy tube. Objective Data Lab / Micro Data Result Diagrams: 06/16/21 06:22 06/16/21 06:22 Physical Exam Narrative Patient is awake General: Awake, disoriented, mildly confused HEENT: Atraumatic, PERRLA, EOMI, Normocephalic Oral: No Gingival or Mucosal Lesions/ Ulcerations Neck: Supple, No JVD, Negative Carotid Bruits Lungs: Air entry diminished in bilateral lung bases. No crepitation/rhonchi Cardiovascular: Sinus rhythm, Normal S1, Normal S2, No murmurs Abdomen: Bowel Sounds Present, Soft, Non Tender, Non-Distended : Suprapubic catheter. Left nephrostomy tube dressing change. No suprapubic tenderness. Extremities: Bilateral leg edema improving, Capillary Refill Less than 3 Seconds Skin: Decubitus ulcer over back. Unstageable. Intertriginous rash over the abdominal fold and groin Musculoskeletal: Tenderness to Palpation of Joints or Extremities. ROM restricted. Bedbound/wheelchair bound. Neurological: Cranial nerves II-XII grossly intact, Deep Tendon Reflexes 2+/4 and Symmetrical, Neuro grossly intact Psych/Mental Status: Awake Assessment & Plan Assessment/Plan (1) Encephalopathy: PLAN: This patient was seen in conjunction with MANAGER CORPORATE RESPONSIBILITYLatonya. I have independently interviewed and examined the patient and reviewed pertinent history, examination findings, laboratory and plan of management. I have reviewed the note and agree with the documented findings with the few additional points. In brief, patient is admitted for acute encephalopathy for several days with confusion, inattentive. Patient also has complicated UTI. Patient was recently evaluated [facility] and had left sided nephrostomy tube and right ureteral stent for staghorn calculus and history of recurrent UTI. Radiology nurse noted left nephrostomy tube sutured not in place. I asked charge nurse to notify urologist Dr. Zavala. Earlier she changed suprapubic catheter. CT abdomen shows left-sided perinephric inflammation with no hydronephrosis. Left-sided percutaneous nephrostomy and bilateral renal calculi. Patient is scheduled for urology follow-up on June 14 in [facility]. Blood culture is growing Enterococcus feceium. Urine culture is growing Acinetobacter Baumanii resistant to meropenem and other antibiotics only sensitive to gentamicin and tobramycin. Initially, patient is on IV meropenem and linezolid with history of Pseudomonas and VRE but as patient got more encephalopathic probably linezolid interaction with venlafaxine which already has been discontinued. Linezolid is changed to vancomycin. IV fluids D5 half NS for nutritional support Acute encephalopathy/impaired responsiveness probably due to polypharmacy: Patient is on baclofen which has been discontinued since yesterday. Gabapentin is also on hold. ABG 7.4 // on ambient air. CT head did not show acute change. She was transfused 1 unit PRBC and hemoglobin went up from 7.1-9.2. Repeat hemoglobin 11.2 g% CODE STATUS was confirmed that she had found that she wanted full code. Her prognosis is guarded in view of multiple comorbidities, MDR bacteremia and in urine. Wound care nurse has been consulted for unstagable sacral decubitus ulcer Other multiple comorbidities as mentioned above Charges/Coding Visit Charges Inpatient E&M: 53118 Subs Hosp L2
[2021-06-16] MEDS: Baclofen 10 MG Tablet 5 MG PO (14:27)
[2021-06-16] MEDS: Potassium Chloride Oral Tablet 20 MEQ 40 MEQ PO (14:27)
[2021-06-16] MEDS: Gabapentin 300 MG Capsule PO ×2 (14:27→18:25)
--- NOTE | 2021-06-16 15:31 | NURSING ---
Latonya Ivy BIOCHEMICAL ENGINEER updated on tachycardia. Aware she talked sister Fabiana regarding transfer to [facility]
--- NOTE | 2021-06-16 16:25 | DS.PCM_ITS ---
Documented by User: Latonya Ivy NP, CREDIT AND COLLECTIONS ANALYST-C 06/16/21 16:55 Providers Date of Admission: 06/10/21 Date of Discharge: 06/16/21 Primary Care Physician: Dr. Colby Valenzuela, Consultations 06/09/21 23:58 Consult: Onc/Wound/newscast producer Routine Comment: 06/10/21 12:32 Consult: Infectious Disease Routine Consulting Provider: Marshall Flores Reason for Consult: complicated UTI, infectious encephalopathy EMERGENT Consult: No MD Notified: Yes Date Notified: 06/10/21 Time Notified: 12:33 Method of Notification: Answering Service 06/10/21 12:35 Consult: Urology Routine Consulting Provider: Rebecca Zavala Reason for Consult: Suprapubic catheter change, recent ureteral stents and nephrostomy tube breanna EMERGENT Consult: No MD Notified: Yes Date Notified: 06/10/21 Time Notified: 12:35 Method of Notification: Verbal Reason For Visit: ENCEPHALOPATHY, POSSIBLE CELLULITIS Diagnosis Discharge Diagnosis (1) Encephalopathy: Status: Acute Code(s): G93.40 - Encephalopathy, unspecified Medications at Discharge Home Medications pravastatin 20 mg PO QHS 12/17/18 venlafaxine 150 mg PO DAILY 07/02/19 potassium chloride 10 meq PO DAILYCM 08/18/19 aspirin 81 mg PO DAILY #0 [facility] 08/13/20 methenamine hippurate 1 gm PO BID #0 08/13/20 acetaminophen 1,000 mg PO Q6H PRN PRN tablet 02/18/21 baclofen 10 mg PO DAILY 04/16/21 baclofen 20 mg PO QHS 04/16/21 bisacodyl 10 mg MI DAILY PRN 04/16/21 diphenhydramine HCl 25 mg PO BID PRN PRN 04/16/21 ertapenem 1 g IM DAILY 04/16/21 gabapentin 600 mg PO BID 04/16/21 magnesium hydroxide [Milk of Magnesia] 30 ml PO DAILY PRN 04/16/21 miconazole nitrate 1 applic TOPICAL BID 04/16/21 minerals [Multi Minerals] 1 tab PO DAILY 04/16/21 omeprazole 20 mg PO DAILY 04/16/21 oxybutynin chloride 15 mg PO DAILY 04/16/21 polyethylene glycol 1 ea MISCELLANEOUS DAILY 04/16/21 sodium phosphates [Fleet Enema] 118 ml MI DAILY PRN PRN 04/16/21 Hospital Course Operations None Procedures None Summary of Care Provided Minutes Spent on Discharge: 35 Hospital Course: Patient is a 75-year-old female admitted 06/09/21 due to confusion. 1. Acute encephalopathy, infectious and metabolic-initially due to infection however currently suspect secondary to polypharmacy. Improved with holding zulma ting regimen. Resume baclofen and gabapentin at decreased dose. Venlafaxine on hold due to interaction with Zyvox which can cause serotonin syndrome. Patient received lactulose suppositories for elevated ammonia, now normalized. Remains confused however much more alert, mental status improving. Zyvox transition to IV Vanco. Due to recurrent complicated UTI with chronic suprapubic catheter, r ecent bilateral staghorn calculi status post right stent and left nephrostomy tube with recurrent drainage and displacement, transferred to [facility] for further urology evaluation. Patient has been following with Dr. Jorge. 2. Abdominal cellulitis and UTI with Enterococcus bacteremia- Urine culture from nephrostomy tube growing Acinetobacter. ID consulted. Suprapubic catheter changed by urology. Linezolid discontinued. On methenamine. Continue IV Vanco. Transfer as noted above. 3. Recent complicated UTI-status post nephrostomy tube placement and ureteral stents. Urology consulted, suprapubic catheter changed. Antibiotics as noted above. Transfer to [place] for further urologic procedure however has had recurrent infections/admissions in the meantime. 4. Remarkable abdominal fold and breast area intertrigo-topical nystatin. Keep area clean and dry. 5. Type 2 diabetes mellitus-hemoglobin A1c less than 3.8%? Accu-Cheks discontinued. 6. Hypertension-not on regimen. As needed hydralazine for elevated blood pressure. 7. Hyperlipidemia-continue statin. 8. Paroxysmal atrial fibrillation-not on anticoagulation or rate limiting regimen. 9. Morbid obesity-encouraged diet and lifestyle modifications. 10. Anxiety/Depression- on venlafaxine. 11. VITA-continue PAP therapy. 12. Acute on Chronic normocytic anemia-S/P 1 unit PRBC. PPI twice daily. Stool for occult blood negative. Iron studies fairly normal. Hemoglobin now stable. Trend CBC. Physical Exam Const alert and no apparent distress Orientation / Consciousness: awake HEENT normocephalic and moist oral mucous membranes Eyes PERRL, EOMs intact bilaterally and conjunctivae normal Neck no lymphadenopathy Resp clear to auscultation bilaterally Auscultation: diminished lung sounds Cardio regular rate, regular rhythm and no murmurs Peripheral Pulses: pulses 2+ throughout GI normal to inspection, nondistended, normoactive bowel sounds, non-tender and non-distended Extremity normal to inspection Skin no rashes or lesions noted Skin Narrative: Abdominal skin fold intertrigo with significant excoriation and erythema, erythema under bilateral breasts. Lesions: no lesions Rashes: no rashes Trauma: no lacerations or abrasions Neuro CN's II-XII intact bilaterally, no focal motor deficits, no sensory deficits noted and deep tendon reflexes 2+ bilaterally Psych mental status grossly normal and affect normal Patient seen and examined prior to discharge. Physical assessment as noted above. Transfer to [facility] for further management. This patient was seen by DEDRICK Simmons under the supervision of Dr. العلي. Medical Records Data Medical Nutrition Assessment Dietitian: Nutrition Therapy Diagnosis Start: 06/10/21 11:09 Freq: Status: Active Protocol: Document 06/14/21 15:43 [facility] (Rec: 06/14/21 15:43 [facility] [id number]) Nutrition Malnutrition Evidence of Malnutrition Exists No Intake Problem Inadequate Oral Intake Etiology related to increased lethargy Signs/Symptoms as evidenced by poor po intake over the weekend and nothing to eat today. Status Active Problem Increased Nutrient Needs (specify) Etiology protein related to wound healing Signs/Symptoms as evidenced by coccyx & left thigh pressure injury, left great toe abrasion. Status Active Problem Clinical Problem Unintended Weight Loss Etiology related to predicted suboptimal energy intake Signs/Symptoms as evidenced by 11% wt loss x 2 months. Status Active Problem Recommendation Dietitian Recommendations/Changes Will liberalize pt to regular diet as pt with unintentional wt loss & pt w/ poor po intake / refusing meals at this time. Continue glucerna 120 ml 4x/ day w/ medpass. Will continue to provide John 1 pkt BID to promote wound healing if consumed. Weight / BMI Weight Weight: 251 lb 1.6 oz Body Mass Index (BMI) 36.1 ABG / Lab / Microbiology Data Result Diagrams: 06/16/21 06:22 06/16/21 06:22 Laboratory: Laboratory Results - last 24 hr 06/16/21 06:22: WBC 3.9 L, RBC 3.80 L, Hgb 11.2 L, Hct 38.3, MCV 100.8 H D, MCH 29.5, MCHC 29.2 L D, RDW Std Deviation 57.6 H, RDW Coeff of Jessi 15.6 H, Plt Count 210, MPV 10.0, Immature Gran % (Auto) 0.500, Neut % (Auto) 56.3, Lymph % (Auto) 22.0, [place] % (Auto) 14.3 H, Eos % (Auto) 5.6 H, Baso % (Auto) 1.3 H, Absolute Neuts (auto) 2.2, Absolute Lymphs (auto) 0.86, Nucleated RBC % 0 06/16/21 06:22: Sodium 143, Potassium 3.4 L, Chloride 113 H, Carbon Dioxide 24.0, Anion Gap 6, BUN 24 H, Creatinine 0.78, Estim Creat Clear Calc 49.79, Est GFR (MDRD) Af Amer 93, Est GFR (MDRD) Non-Af 77, BUN/Creatinine Ratio 31.0 H, Glucose 76, Calcium 8.1 L, Total Bilirubin 0.40, AST 39 H, ALT 30, Alkaline Phosphatase 88, Total Protein 6.2 L, Albumin 1.6 L, Globulin 4.6 H, Albumi n/Globulin Ratio 0.3 L 06/16/21 06:22: Ammonia 25.0 Microbiology: Microbiology 06/09/21 19:45 Blood Culture (Wb) - Port Blood Culture - Final GPC Poss Enterococcus sp 06/14/21 21:45 Stool Stool Occult Blood (WENDI) - Final 06/09/21 20:44 Blood Culture (Wb) - Left Hand Bacteria Detection (PCR) - Final Enterococcus faecium 06/09/21 20:44 Blood Culture (Wb) - Left Hand Blood Culture - Final Enterococcus faecium 06/09/21 20:50 Urine, Nephrostomy Urine Culture - Final Acinetobacter baumannii 06/10/21 00:58 Mucosa - Nasopharyngeal Respiratory Panel (PCR) - Final 06/10/21 01:55 Mucosa - Nose SARS-CoV-2 Antigen (Rapid) - Final Meaningful Use Info Meaningful Use Diagnoses (Choose all that apply): None applicable Discharge Plan Admission Admit Date/Time: 06/10/21 10:35 Attending Provider: Lauro العلي Primary Care Provider: Colby Valenzuela Consulting Providers: Marshall Flores ; Rebecca Zavala Discharge Orders/Prescriptions Prescriptions: No Action pravastatin 20 MG tablet 20 mg PO QHS RF: 0 venlafaxine 150 MG capsule 150 mg PO DAILY RF: 0 potassium chloride 10 MEQ tablet 10 meq PO DAILYCM RF: 0 methenamine hippurate 1 GM tablet 1 gm PO BID Qty: 0 RF: 0 aspirin 81 MG tablet,chewable 81 mg PO DAILY MDD heart health Qty: 0 RF: 0 acetaminophen 500 MG tablet 1,000 mg PO Q6H PRN PRN (Reason: Pain Score 1-10) RF: 0 gabapentin 600 mg Tablet 600 mg PO BID RF: 0 miconazole nitrate 2 % Powder 1 applic TOPICAL BID RF: 0 baclofen 20 mg Tablet 20 mg PO QHS RF: 0 magnesium hydroxide [Milk of Magnesia] 400 mg/5 mL Suspension 30 ml PO DAILY PRN (Reason: Constipation) RF: 0 baclofen 10 mg Tablet 10 mg PO DAILY RF: 0 bisacodyl 10 mg Suppository 10 mg MI DAILY PRN (Reason: Constipation) RF: 0 Fleet Enema 19-7 gram/118 mL Enema 118 ml MI DAILY PRN PRN (Reason: Constipation) RF: 0 omeprazole 20 mg Capsule,Delayed Release(Dr/Ec) 20 mg PO DAILY RF: 0 Multi Minerals Tablet 1 tab PO DAILY RF: 0 ertapenem 1 gram Recon Soln 1 g IM DAILY RF: 0 polyethylene glycol Powder 1 ea MISCELLANEOUS DAILY RF: 0 diphenhydramine HCl 25 MG capsule 25 mg PO BID PRN PRN (Reason: Itching) RF: 0 oxybutynin chloride 5 MG tablet 15 mg PO DAILY RF: 0 Referrals / Follow Up: Colby Valenzuela DO [Primary Care Provider] - Disposition Disposition (needs filled in before D/C Order can be placed): [facility] Documented by User: Dr. Lauro العلي MD 06/16/21 18:40 Providers Date of Admission: 06/10/21 Reason For Visit: ENCEPHALOPATHY, POSSIBLE CELLULITIS Medications at Discharge Home Medications pravastatin 20 mg PO QHS 12/17/18 venlafaxine 150 mg PO DAILY 07/02/19 potassium chloride 10 meq PO DAILYCM 08/18/19 aspirin 81 mg PO DAILY #0 [facility] 08/13/20 methenamine hippurate 1 gm PO BID #0 08/13/20 acetaminophen 1,000 mg PO Q6H PRN PRN tablet 02/18/21 baclofen 10 mg PO DAILY 04/16/21 baclofen 20 mg PO QHS 04/16/21 bisacodyl 10 mg MI DAILY PRN 04/16/21 diphenhydramine HCl 25 mg PO BID PRN PRN 04/16/21 ertapenem 1 g IM DAILY 04/16/21 gabapentin 600 mg PO BID 04/16/21 magnesium hydroxide [Milk of Magnesia] 30 ml PO DAILY PRN 04/16/21 miconazole nitrate 1 applic TOPICAL BID 04/16/21 minerals [Multi Minerals] 1 tab PO DAILY 04/16/21 omeprazole 20 mg PO DAILY 04/16/21 oxybutynin chloride 15 mg PO DAILY 04/16/21 polyethylene glycol 1 ea MISCELLANEOUS DAILY 04/16/21 sodium phosphates [Fleet Enema] 118 ml MI DAILY PRN PRN 04/16/21 Hospital Course Summary of Care Provided Hospital Course: This patient was seen in conjunction with CREDIT AND COLLECTIONS ANALYST, Latonya. I have independently interviewed and examined the patient and reviewed pertinent history, examination findings, laboratory and plan of management. I have reviewed the note and agree with the documented findings with the few additional points. In brief, patient is admitted for acute encephalopathy for several days with confusion, inattentive. Patient also has complicated UTI. Patient was recently evaluated [facility] and had left sided nephrostomy tube and right ureteral stent for staghorn calculus and history of recurrent UTI. Radiology nurse noted left nephrostomy tube sutured not in place. Urologist Dr. Zavala changed suprapubic catheter. CT abdomen shows left-sided perinephric inflammation with no hydronephrosis. Left-sided percutaneous nephrostomy and bilateral renal calculi. Patient had scheduled urology follow-up on June 14 in [facility] which was missed because he was admitted for bacteremia. Blood culture is growing Enterococcus feceium. Urine culture is growing Acinetobacter Baumanii resistant to meropenem and other antibiotics only sensitive to gentamicin and tobramycin. Initially, patient is on IV meropenem and linezolid with history of Pseudomonas and VRE but as patient got more encephalopathic probably linezolid interaction with venlafaxine which already has been discontinued. Linezolid is changed to vancomycin. IV fluids D5 half NS for nutritional support. Patient is transferred to [facility] urology service as it seems nephrostomy tube suture is off and may not be in place therefore need further evaluation. Acute encephalopathy/impaired responsiveness probably due to polypharmacy: Patient is on baclofen which has been discontinued since yesterday. Gabapentin is also on hold. ABG 7.4 / on ambient air. CT head did not show acute change. She was transfused 1 unit PRBC and hemoglobin went up from 7.1-9.2. Repeat hemoglobin 11.2 g% CODE STATUS was confirmed that she had found that she wanted full code. Her prognosis is guarded in view of multiple comorbidities, MDR bacteremia and in urine. Wound care nurse was consulted for unstagable sacral decubitus ulcer Other multiple comorbidities as mentioned above Patient is transferred to [facility] urology service. Total time of the visit including total time spent in counseling or coordination of care, (more than 50% of the total time, spent in obtaining medical information from nurses and other ancillary care providers,explaining to the patient about labs, imaging, diagnosis and management), transfer coordination and facilitation of transfer, review of labs and imaging is 30 minutes. Physical Exam Narrative Please see progress note on the same date for physical exam findings ABG / Lab / Microbiology Data Result Diagrams: 06/16/21 06:22 06/16/21 06:22 Discharge Plan Admission Admit Date/Time: 06/10/21 10:35 Attending Provider: Lauro العلي Primary Care Provider: Colby Valenzuela Consulting Providers: Marshall Flores ; Rebecca Zavala Discharge Orders/Prescriptions Prescriptions: No Action pravastatin 20 MG tablet 20 mg PO QHS RF: 0 venlafaxine 150 MG capsule 150 mg PO DAILY RF: 0 potassium chloride 10 MEQ tablet 10 meq PO DAILYCM RF: 0 methenamine hippurate 1 GM tablet 1 gm PO BID Qty: 0 RF: 0 aspirin 81 MG tablet,chewable 81 mg PO DAILY MDD heart health Qty: 0 RF: 0 acetaminophen 500 MG tablet 1,000 mg PO Q6H PRN PRN (Reason: Pain Score 1-10) RF: 0 gabapentin 600 mg Tablet 600 mg PO BID RF: 0 miconazole nitrate 2 % Powder 1 applic TOPICAL BID RF: 0 baclofen 20 mg Tablet 20 mg PO QHS RF: 0 magnesium hydroxide [Milk of Magnesia] 400 mg/5 mL Suspension 30 ml PO DAILY PRN (Reason: Constipation) RF: 0 baclofen 10 mg Tablet 10 mg PO DAILY RF: 0 bisacodyl 10 mg Suppository 10 mg MI DAILY PRN (Reason: Constipation) RF: 0 Fleet Enema 19-7 gram/118 mL Enema 118 ml MI DAILY PRN PRN (Reason: Constipation) RF: 0 omeprazole 20 mg Capsule,Delayed Release(Dr/Ec) 20 mg PO DAILY RF: 0 Multi Minerals Tablet 1 tab PO DAILY RF: 0 ertapenem 1 gram Recon Soln 1 g IM DAILY RF: 0 polyethylene glycol Powder 1 ea MISCELLANEOUS DAILY RF: 0 diphenhydramine HCl 25 MG capsule 25 mg PO BID PRN PRN (Reason: Itching) RF: 0 oxybutynin chloride 5 MG tablet 15 mg PO DAILY RF: 0 Referrals / Follow Up: Colby Valenzuela DO [Primary Care Provider] - Disposition Disposition (needs filled in before D/C Order can be placed): [facility] Charges/Coding Addendum Addendum: Please cancel the billing charge of the progress note on the same date, 06/16/2021 Visit Charges Inpatient E&M: [id number] Disch Hosp
--- NOTE | 2021-06-16 16:32 | NURSING ---
report called to Shanita Tomlin at [facility]
--- NOTE | 2021-06-16 19:24 | NURSING ---
verbal report given to transport and assisted with transitioning patient to their cot/care
--- NOTE | 2021-06-17 08:50 | CASEMGMT ---
ELIAS let Adrianna at [facility] know that pt was transferred [facility], faxed them her the discharge summary. CLIFFORD Beasley
== END 2021-06-16 19:23 | disposition short-term general hospital (02) | DRG 91 ==
LOC: ED 23:05 → MS3 23:17
PROVIDERS: Nurse Practitioner Family; Admitting Provider Family Medicine; Emergency Provider Emergency Medicine; PCP Family Medicine; Visit Provider Internal Medicine
DX: G92 Toxic encephalopathy (principal); G93.41 Metabolic encephalopathy; L03.311 Cellulitis of abdominal wall; Z16.19 Resistance to other specified beta lactam antibiotics; T83.512A Infection and inflammatory reaction due to nephrostomy catheter, initial encounter; T42.6X5A Adverse effect of other antiepileptic and sedative-hypnotic drugs, initial encounter; T42.8X5A Adverse effect of antiparkinsonism drugs and other central muscle-tone depressants, initial encounter; N20.0 Calculus of kidney; B95.2 Enterococcus as the cause of diseases classified elsewhere; B96.89 Other specified bacterial agents as the cause of diseases classified elsewhere; Y84.6 Urinary catheterization as the cause of abnormal reaction of the patient, or of later complication, without mention of misadventure at the time of the procedure; E11.42 Type 2 diabetes mellitus with diabetic polyneuropathy; L30.4 Erythema intertrigo; I48.0 Paroxysmal atrial fibrillation; I10 Essential (primary) hypertension; D64.9 Anemia, unspecified; E78.5 Hyperlipidemia, unspecified; L89.150 Pressure ulcer of sacral region, unstageable; F32.9 Major depressive disorder, single episode, unspecified; F41.9 Anxiety disorder, unspecified; G47.33 Obstructive sleep apnea (adult) (pediatric); E66.01 Morbid (severe) obesity due to excess calories; Z68.37 Body mass index [BMI] 37.0-37.9, adult; Z99.3 Dependence on wheelchair; Z93.6 Other artificial openings of urinary tract status; Z79.82 Long term (current) use of aspirin; Z79.899 Other long term (current) drug therapy; Z87.440 Personal history of urinary (tract) infections
CPT/HCPCS: 36415; 36591; 36600; 70450; 71045; 74176; 80048; 80053; 80202; 81001; 82140; 82274; 82607; 82728; 82803; 82962; 83036; 83540; 83605; 83735; 84145; 84484; 85025; 85610; 85730; 86850; 86900; 86901; 86920; 86922; 87040; 87077; 87086; 87088; 87149; 87186; 87426; 87633; 93005; 97161; 97166; 97802; 99285; J2185; J7030; J7040; J7050; P9016; A4216; J2405; J7799

== ENCOUNTER 2021-07-02 09:18 | Emergency (ER) | payer MEDICARE, OTHER, SELFPAY ==
[2021-07-02 09:20] VITALS: BP 107/65; PULSE 94; RESP 16; TEMP 36.7; O2SAT 100; BMI 42.5
--- NOTE | 2021-07-02 09:38 | EDS_ITS ---
HPI History of Present Illness Chief Complaint: Other, Pain/Inj Informant: patient Narrative Narrative: Patient is a 75-year-old female who presents to the emergency department from [facility] for dislodgment of her left nephrostomy tube. This occurred sometime yesterday. She denies any pain. She does have a chronic indwelling suprapubic catheter. She states that she believes that the nephrostomy tube has been present over the past 6 to 8 weeks. There is a previous ED note in March where she had this dislodged at that time. Patient otherwise has no complaints. She states that she has not followed up since that being placed with her urologist. He was placed to [facility]. 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 Kidney calculus Morbid obesity VITA (obstructive sleep apnea) VITA (obstructive sleep apnea) Pressure ulcer of coccygeal region, stage 3 Pyonephrosis Renal calculus, bilateral Severe sepsis Ulcer of abdomen wall with fat layer exposed Ulcer of left groin with fat layer exposed UTI (urinary tract infection) due to urinary indwelling catheter V tach Home Medications pravastatin 20 mg PO QHS 12/17/18 [History Last Taken 08/06/20] venlafaxine 150 mg PO DAILY 07/02/19 [History Last Taken 08/07/20] potassium chloride 10 meq PO DAILYCM 08/18/19 [History Last Taken 08/06/20] aspirin 81 mg PO DAILY #0 [facility] 08/13/20 [Rx Last Taken Unknown] methenamine hippurate 1 gm PO BID #0 08/13/20 [Rx Last Taken 08/07/20] acetaminophen 1,000 mg PO Q6H PRN PRN tablet 02/18/21 [Rx Last Taken Unknown] baclofen 10 mg PO DAILY 04/16/21 [History Last Taken Unknown] baclofen 20 mg PO QHS 04/16/21 [History Last Taken Unknown] bisacodyl 10 mg PA DAILY PRN 04/16/21 [History Last Taken Unknown] diphenhydramine HCl 25 mg PO BID PRN PRN 04/16/21 [History Last Taken Unknown] ertapenem 1 g IM DAILY 04/16/21 [History Last Taken Unknown] gabapentin 600 mg PO BID 04/16/21 [History Last Taken Unknown] magnesium hydroxide [Milk of Magnesia] 30 ml PO DAILY PRN 04/16/21 [History Last Taken Unknown] miconazole nitrate 1 applic TOPICAL BID 04/16/21 [History Last Taken Unknown] minerals [Multi Minerals] 1 tab PO DAILY 04/16/21 [History Last Taken Unknown] omeprazole 20 mg PO DAILY 04/16/21 [History Last Taken Unknown] oxybutynin chloride 15 mg PO DAILY 04/16/21 [History Last Taken Unknown] polyethylene glycol 1 ea MISCELLANEOUS DAILY 04/16/21 [History Last Taken Unknown] sodium phosphates [Fleet Enema] 118 ml PA DAILY PRN PRN 04/16/21 [History Last Taken Unknown] fosfomycin tromethamine 1 packet PO QODAY 07/02/21 [History Last Taken Unknown] gabapentin 200 mg PO TID 07/02/21 [History Last Taken Unknown] lactulose 10 g PO BID 07/02/21 [History Last Taken Unknown] methadone 2.5 mg PO QHS 07/02/21 [History Last Taken Unknown] metoprolol tartrate 25 mg PO BID 07/02/21 [History Last Taken Unknown] oxycodone 5 mg PO Q4H PRN 07/02/21 [History Last Taken Unknown] vancomycin in dextrose 5 % 1 g IV Q24H 07/02/21 [History Last Taken Unknown] Allergy/AdvReac Type Severity Reaction Status Date / Time adhesive tape Allergy blisters Verified 07/02/21 09:19 Influenza Virus Vaccines Allergy shortness Verified 07/02/21 09:19 of breath/severe wheezing iron Allergy from IV Verified 07/02/21 09:19 form chest pressure and heart palpitations Sulfa (Sulfonamide Allergy Shortness Verified 07/02/21 09:19 Antibiotics) of breath meloxicam [From Mobic] AdvReac gi upset Verified 07/02/21 09:19 seasonal allergies Allergy Other Uncoded 07/02/21 09:19 Surgical History H/O nephrostomy H/O: hysterectomy History of cholecystectomy History of tonsillectomy Hx of appendectomy Social History Smoking Status: Never smoker substance use type: does not use ROS ROS ED Constitutional Constitutional ED: Denies chills or fever(s) ENT ENT ED: Denies epistaxis or rhinorrhea Cardiovascular Cardiovascular: Denies chest pain Respiratory/Chest Respiratory/Chest: Denies cough or dyspnea Gastrointestinal Gastrointestinal: Denies abdominal pain, nausea or vomiting Genitourinary Genitourinary ED: Denies hematuria Musculoskeletal Musculoskeletal: Denies back pain or neck pain Integumentary Denies rash Neurologic Neurologic: Denies weakness EXAM Physical Exam Const Vital Signs: 07/02/21 09:20 07/02/21 09:24 Temperature 98.0 F Temperature Source Oral Pulse Rate 94 Respiratory Rate 16 Respiratory Effort Normal Non-Labored Respiratory Pattern Normal Blood Pressure 107/65 Blood Pressure Mean 79 Pulse Ox 100 Oxygen Delivery Method Room Air Positive well nourished and well developed General Appearance ED: well developed and NAD HEENT Reports normocephalic, head/scalp atraumatic and moist mucous membranes Eyes PERRL and EOMs intact bilaterally Neck supple Chest Wall inspection of chest normal Resp normal respiratory effort Cardio regular rate and regular rhythm GI normal to inspection, nondistended, normoactive bowel sounds and non-tender Palpation: soft; Negative for guarding or rebound tenderness present Back/Spine Back/Spine Narrative: Stoma present on left flank. No evidence of surrounding infection. Extremity normal to inspection Neuro Sensorium / Orientation: alert Motor Exam: strength 5/5 throughout Psych mental status grossly normal Skin no rashes or lesions noted MDM MDM MDM Narrative Medical decision making narrative: Patient presents to the ED for dislodgment of her left nephrostomy tube which occurred sometime yesterday. She otherwise has no complaints. She does have a chronic indwelling suprapubic catheter. Page has been placed to [facility] urology as they are the team that placed it. I did speak with the [facility] urology [facility]. They did recommend that the patient be transferred for this to be replaced. Patient will be on emergency department to emergency department transfer. Dr. Gaines is the accepting physician. Patient is agreeable with this plan. She has remained stable without any other complaints throughout ED stay. Discharge Plan Triage Chief Complaint: Other, Pain/Inj ED Provider: Kyree Celaya Dx/Rx/DC Orders Clinical Impression: Nephrostomy tube displaced Prescriptions: No Action pravastatin 20 MG tablet 20 mg PO QHS RF: 0 venlafaxine 150 MG capsule 150 mg PO DAILY RF: 0 potassium chloride 10 MEQ tablet 10 meq PO DAILYCM RF: 0 methenamine hippurate 1 GM tablet 1 gm PO BID Qty: 0 RF: 0 aspirin 81 MG tablet,chewable 81 mg PO DAILY MDD heart health Qty: 0 RF: 0 acetaminophen 500 MG tablet 1,000 mg PO Q6H PRN PRN (Reason: Pain Score 1-10) RF: 0 gabapentin 600 mg Tablet 600 mg PO BID RF: 0 miconazole nitrate 2 % Powder 1 applic TOPICAL BID RF: 0 baclofen 20 mg Tablet 20 mg PO QHS RF: 0 magnesium hydroxide [Milk of Magnesia] 400 mg/5 mL Suspension 30 ml PO DAILY PRN (Reason: Constipation) RF: 0 baclofen 10 mg Tablet 10 mg PO DAILY RF: 0 bisacodyl 10 mg Suppository 10 mg PA DAILY PRN (Reason: Constipation) RF: 0 Fleet Enema 19-7 gram/118 mL Enema 118 ml PA DAILY PRN PRN (Reason: Constipation) RF: 0 omeprazole 20 mg Capsule,Delayed Release(Dr/Ec) 20 mg PO DAILY RF: 0 Multi Minerals Tablet 1 tab PO DAILY RF: 0 ertapenem 1 gram Recon Soln 1 g IM DAILY RF: 0 polyethylene glycol Powder 1 ea MISCELLANEOUS DAILY RF: 0 diphenhydramine HCl 25 MG capsule 25 mg PO BID PRN PRN (Reason: Itching) RF: 0 oxybutynin chloride 5 MG tablet 15 mg PO DAILY RF: 0 fosfomycin tromethamine 3 gram Packet 1 packet PO QODAY RF: 0 methadone 5 mg Tablet 2.5 mg PO QHS RF: 0 lactulose 10 gram/15 mL Syrup 10 g PO BID RF: 0 oxycodone 5 mg Tablet 5 mg PO Q4H PRN (Reason: Pain) RF: 0 metoprolol tartrate 25 mg Tablet 25 mg PO BID RF: 0 gabapentin 100 mg Tablet 200 mg PO TID RF: 0 vancomycin in dextrose 5 % 1.5 gram/500 mL Solution 1 g IV Q24H RF: 0 Primary Care Provider: Colby Valenzuela Referrals: Colby Valenzuela DO [Primary Care Provider] - Disposition Disposition: Acute Care Hospital
--- NOTE | 2021-07-02 10:17 | NURSING ---
[id number] [facility] [address] JI
--- NOTE | 2021-07-02 10:18 | NURSING ---
1004 DR JI REPAGED
--- NOTE | 2021-07-02 10:46 | NURSING ---
ACCEPTED AT [facility]
--- NOTE | 2021-07-02 10:56 | NURSING ---
CALLED [facility], ETA IS 30 MIN
== END 2021-07-02 11:54 | disposition short-term general hospital (02) ==
PROVIDERS: Emergency Provider Emergency Medicine; PCP Family Medicine
DX: T83.022A Displacement of nephrostomy catheter, initial encounter (principal); I11.0 Hypertensive heart disease with heart failure; I50.9 Heart failure, unspecified; E78.5 Hyperlipidemia, unspecified; K21.9 Gastro-esophageal reflux disease without esophagitis; E66.01 Morbid (severe) obesity due to excess calories; Z68.41 Body mass index [BMI] 40.0-44.9, adult; Z79.82 Long term (current) use of aspirin; Z79.899 Other long term (current) drug therapy
CPT/HCPCS: 99285

== ENCOUNTER 2021-09-07 09:23 | Emergency (ER) | payer MEDICARE, OTHER, SELFPAY ==
[2021-09-07] VITALS (17 sets, daily range): BP systolic 90–164; BP diastolic 38–122; PULSE 74–119; RESP 13–22; TEMP 36.3–37.1; O2SAT 94–100; BMI 35.6
--- NOTE | 2021-09-07 09:36 | EKG12_ITS ---
Test Reason : WOUND Blood Pressure : / mmHG Vent. Rate : 102 BPM Atrial Rate : 103 BPM P-R Int : 088 ms QRS Dur : 072 ms QT Int : 350 ms P-R-T Axes : 000 095 089 degrees QTc Int : 456 ms Ectopic atrial rhythm Low voltage QRS Septal infarct , age undetermined Abnormal ECG Confirmed by SEBASTIÁN THOMPSON, KENNEDY ([id number]), script editor BROOKS WIGGINS ([id number]) on 09/10/2021 9:13:00 AM Referred By: KIKO Confirmed By:KENNEDY LOWERY MD
--- NOTE | 2021-09-07 09:40 | EX.ED.GENINJ ---
HPI History of Present Illness Chief Complaint: Wound Narrative Narrative: 75-year-old female presenting for a wound on the left flank. Patient states that she previously had a nephrostomy tube placed here by Dr. Jorge at [facility]. Initially she saw Dr. Zavala and was later referred to him. He placed a nephrostomy tube in the left flank which was in place from March to July. The patient notes that she has had purulent drainage from the site where the nephrostomy tube was placed. She has a chronic indwelling suprapubic catheter which although the tubing has thick urine in it they state that this is actually improved and is usually darker. Patient also has a sacral decubitus ulcer which is chronic and this has not been an issue as far as infection. Patient has not had a fever. She does complain of left flank pain. Patient states that she is chronically on iron for anemia. She denies any use of blood thinners. She believes that her last hemoglobin was over 9. 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 Kidney calculus Morbid obesity VITA (obstructive sleep apnea) VITA (obstructive sleep apnea) Pressure ulcer of coccygeal region, stage 3 Pyonephrosis Recurrent UTI Renal calculus, bilateral Severe sepsis Ulcer of abdomen wall with fat layer exposed Ulcer of left groin with fat layer exposed UTI (urinary tract infection) due to urinary indwelling catheter V tach Home Medications pravastatin 20 mg PO QHS 12/17/18 [History Last Taken 09/06/21] venlafaxine 150 mg PO DAILY 07/02/19 [History Last Taken 09/06/21] aspirin 81 mg PO DAILY #0 [facility] 08/13/20 [Rx Last Taken 09/06/21] acetaminophen 1,000 mg PO Q6H PRN PRN tablet 02/18/21 [Rx Last Taken 09/06/21] miconazole nitrate 1 applic TOPICAL BID 04/16/21 [History Last Taken 09/06/21] omeprazole 20 mg PO DAILY 04/16/21 [History Last Taken 09/06/21] fosfomycin tromethamine 1 packet PO MO 07/02/21 [History Last Taken 09/06/21] methadone 2.5 mg PO BID 07/02/21 [History Last Taken 09/06/21] metoprolol tartrate 25 mg PO BID 07/02/21 [History Last Taken 09/06/21] Lactobacillus rhamnosus GG [Culturelle] 1 cap PO BID 09/07/21 [History Last Taken 09/06/21] ferrous sulfate 325 mg PO BID 09/07/21 [History Last Taken 09/06/21] lactulose 15 ml PO BID 09/07/21 [History Last Taken 09/06/21] multivitamin with minerals [Multiple Vitamin-Minerals] 1 tab PO DAILY 09/07/21 [History Last Taken 09/06/21] oxybutynin chloride 10 mg PO DAILY 09/07/21 [History Last Taken 09/06/21] Allergy/AdvReac Type Severity Reaction Status Date / Time adhesive tape Allergy blisters Verified 07/02/21 09:19 Influenza Virus Vaccines Allergy shortness Verified 07/02/21 09:19 of breath/severe wheezing iron Allergy from IV Verified 07/02/21 09:19 form chest pressure and heart palpitations Sulfa (Sulfonamide Allergy Shortness Verified 07/02/21 09:19 Antibiotics) of breath meloxicam [From Mobic] AdvReac gi upset Verified 07/02/21 09:19 seasonal allergies Allergy Other Uncoded 07/02/21 09:19 Surgical History H/O nephrostomy H/O: hysterectomy History of cholecystectomy History of tonsillectomy Hx of appendectomy Social History Smoking Status: Never smoker substance use type: does not use ROS ROS ED Constitutional Constitutional ED: Denies chills or fever(s) Eyes Eyes: Denies blurry vision or change in vision ENT ENT ED: Denies rhinorrhea or sore throat Cardiovascular Cardiovascular: Denies chest pain or palpitations Respiratory/Chest Respiratory/Chest: Denies cough or dyspnea Gastrointestinal Gastrointestinal: Denies abdominal pain, nausea or vomiting Genitourinary Genitourinary ED: Reports other Details: Left flank pain Integumentary Reports other Details: Drainage from left nephrostomy site. Chronic sacral cubitus ulcer Neurologic Neurologic: Denies headache(s) or paresthesias EXAM Physical Exam Const Vital Signs: 09/07/21 09:23 09/07/21 09:37 09/07/21 09:44 Temperature 98.2 F 98.2 F Temperature Source Oral Oral Pulse Rate 109 H 109 H 103 H Respiratory Rate 20 H 20 H Blood Pressure 164/122 H 164/122 H Blood Pressure Mean 136 136 Pulse Ox 98 98 Oxygen Delivery Method Room Air Room Air 09/07/21 09:47 09/07/21 09:57 09/07/21 11:00 Temperature 98.2 F 98 F Temperature Source Temporal Temporal Pulse Rate 102 H Respiratory Rate 13 Blood Pressure 130/59 H Blood Pressure Mean 82 Pulse Ox 100 100 Oxygen Delivery Method Room Air Room Air 09/07/21 12:48 09/07/21 12:49 09/07/21 13:03 Temperature 98.1 F 98.1 F Temperature Source Oral Oral Pulse Rate 98 101 H 98 Respiratory Rate 15 15 16 Blood Pressure 90/38 L 90/38 L 96/85 H Blood Pressure Mean 55 55 88 Pulse Ox 99 97 99 Oxygen Delivery Method Room Air Room Air Room Air 09/07/21 14:43 09/07/21 15:42 09/07/21 15:45 Temperature 98.6 F 97.4 F L 97.3 F L Temperature Source Oral Temporal Temporal Pulse Rate 97 74 Respiratory Rate 21 H 16 Blood Pressure 91/54 L 97/73 Blood Pressure Mean 66 81 Pulse Ox 97 98 Oxygen Delivery Method Room Air Room Air 09/07/21 16:00 09/07/21 16:40 Temperature 98.8 F 98.8 F Temperature Source Temporal Temporal Pulse Rate 109 H Respiratory Rate 14 Blood Pressure 103/66 Blood Pressure Mean 78 Pulse Ox 94 Oxygen Delivery Method Room Air Positive obese General Appearance ED: NAD Nutritional Appearance: obese HEENT atraumatic Eyes PERRL and EOMs intact bilaterally Chest Wall inspection of chest normal Resp normal respiratory effort and clear to auscultation bilaterally Auscultation: Negative for rales, rhonchi or wheezes Cardio regular rhythm Rate: tachycardic GI normal to inspection, nondistended, normoactive bowel sounds Back/Spine Back/Spine Narrative: 2 cm circular area on the left flank which is draining copious purulent discharge. 2 x 3 cm sacral decubitus ulcer stage III. No surrounding induration or erythema. No drainage noted. Neuro oriented x3 Sensorium / Orientation: alert Psych mental status grossly normal and thought process normal Skin Skin Narrative: As described above MDM MDM MDM Narrative Medical decision making narrative: 75-year-old female presenting with large draining wound on the left flank presumably from her nephrostomy tube that was previously placed as it is in the same area. Wound cultures were obtained. Patient initially tachycardic and tachypneic and with an obvious source of infection I did obtain a sepsis work-up and patient was pancultured. EKG on my interpretation shows a sinus tachycardia with a ventricular rate of 102 bpm with Mobitz type II AV block. CBC shows a leukocytosis of 19 point with a left shift. Urinalysis does show occult blood as well as 500 leukocyte esterase and WBCs of 25-50 and 2+ bacteria. Patient does report that her urine looks actually improved. It is likely this could be colonized chronic indwelling catheter. Given that the patient had drainage from her wound I will cover her with broad-spectrum antibiotics with vancomycin and Zosyn. She was given morphine for her pain. Patient did have some low blood pressure readings and then her blood pressure cuff was adjusted and appear to be normal however it is difficult to get an accurate blood pressure on her wrist. The blood pressure cuff does not fit on her forearm. Patient was given 1.5 L of IV fluids although without an accurate blood pressure do not want to give her too many fluids. Recheck of her blood pressure shows it is 164/122 and 103/66 which is significantly improved. CT of the abdomen pelvis shows a small amount of perinephric fluid on the left which is clinically adjacent to the draining wound on the left flank. I discussed this with the nurse practitioner for Dr. Jorge who spoke with Dr. Avila who felt that since the ureteral stents are in place that likely they are draining and they felt like this was most likely still a hematoma which they visualized on the CT. it was recommended to me that she be admitted to medicine for IV antibiotics. After this phone call I spoke with Dr. Zavala who recommended that the patient be transferred to [facility] for IV antibiotics. She did not feel comfortable with the patient being in [facility] as she might be too complex. I did speak with the transfer line at [facility] who was unable to get direct admit approval to the hospital. At this point I spoke with Dr. Sosa who was amenable to admitting the patient for IV antibiotics but needed urology to be on board and since urology wants the patient transferred I again called the transfer line for [facility] as this is where her care was given. I spoke with Dr. Juarez from the ER for an ER to ER transfer and he did accept. Patient was consented for transfer. Dr. Juarez did feel that he could likely get urology consulted in the ER to determine her needs. Impression 1. Left renal abscess 2. Sepsis Lab Data Labs: Laboratory Results - last 24 hr 09/07/21 09/07/21 09/07/21 09:30 09:30 09:30 WBC 19.5 H RBC 4.01 L Hgb 11.3 L Hct 35.7 L MCV 89.0 MCH 28.2 MCHC 31.7 L RDW Std Deviation 49.5 H RDW Coeff of Jessi 15.2 H Plt Count 549 H MPV 10.3 Immature Gran % (Auto) 0.700 Neut % (Auto) 89.0 H Lymph % (Auto) 4.6 L Starr % (Auto) 5.1 Eos % (Auto) 0.3 Baso % (Auto) 0.3 Absolute Neuts (auto) 17.4 H Absolute Lymphs (auto) 0.89 Nucleated RBC % 0 PT Cancelled INR Cancelled APTT Cancelled Sodium Cancelled Potassium Cancelled Chloride Cancelled Carbon Dioxide Cancelled Anion Gap Cancelled BUN Cancelled Creatinine Cancelled Estim Creat Clear Calc Cancelled Est GFR (MDRD) Af Amer Cancelled Est GFR (MDRD) Non-Af Cancelled BUN/Creatinine Ratio Cancelled Glucose Cancelled Lactic Acid Calcium Cancelled Total Bilirubin Cancelled AST Cancelled ALT Cancelled Alkaline Phosphatase Cancelled Troponin I High Sens Cancelled Total Protein Cancelled Albumin Cancelled Globulin Cancelled Albumin/Globulin Ratio Cancelled Urine Color Urine Clarity Urine pH Ur Specific Waldo Urine Protein Urine Glucose (UA) Urine Ketones Urine Occult Blood Urine Nitrite Urine Bilirubin Urine Urobilinogen Ur Leukocyte Esterase Urine RBC Urine WBC Ur Squamous Epith Cells Urine Bacteria Urine Mucus Blood Type Antibody Screen 09/07/21 09/07/21 09/07/21 09:30 09:30 09:55 WBC RBC Hgb Hct MCV MCH MCHC RDW Std Deviation RDW Coeff of Jessi Plt Count MPV Immature Gran % (Auto) Neut % (Auto) Lymph % (Auto) Starr % (Auto) Eos % (Auto) Baso % (Auto) Absolute Neuts (auto) Absolute Lymphs (auto) Nucleated RBC % PT INR APTT Sodium Potassium Chloride Carbon Dioxide Anion Gap BUN Creatinine Estim Creat Clear Calc Est GFR (MDRD) Af Amer Est GFR (MDRD) Non-Af BUN/Creatinine Ratio Glucose Lactic Acid Cancelled Calcium Total Bilirubin AST ALT Alkaline Phosphatase Troponin I High Sens Total Protein Albumin Globulin Albumin/Globulin Ratio Urine Color Yellow Urine Clarity Cloudy Urine pH 7.0 Ur Specific Waldo 1.015 Urine Protein 100 H Urine Glucose (UA) Normal Urine Ketones 5 H Urine Occult Blood 250 H Urine Nitrite Negative Urine Bilirubin Negative Urine Urobilinogen Normal Ur Leukocyte Esterase 500 H Urine RBC 25-50 SEEN Urine WBC 25-50 SEEN Ur Squamous Epith Cells 0-5 SEEN Urine Bacteria 2+ Urine Mucus 0 SEEN Blood Type Cancelled Antibody Screen Cancelled 09/07/21 09/07/21 09/07/21 11:00 11:00 11:00 WBC RBC Hgb Hct MCV MCH MCHC RDW Std Deviation RDW Coeff of Jessi Plt Count MPV Immature Gran % (Auto) Neut % (Auto) Lymph % (Auto) Starr % (Auto) Eos % (Auto) Baso % (Auto) Absolute Neuts (auto) Absolute Lymphs (auto) Nucleated RBC % PT Cancelled INR Cancelled APTT Cancelled Sodium Cancelled Potassium Cancelled Chloride Cancelled Carbon Dioxide Cancelled Anion Gap Cancelled BUN Cancelled Creatinine Cancelled Estim Creat Clear Calc Cancelled Est GFR (MDRD) Af Amer Cancelled Est GFR (MDRD) Non-Af Cancelled BUN/Creatinine Ratio Cancelled Glucose Cancelled Lactic Acid 0.7 Calcium Cancelled Total Bilirubin Cancelled AST Cancelled ALT Cancelled Alkaline Phosphatase Cancelled Troponin I High Sens Cancelled Total Protein Cancelled Albumin Cancelled Globulin Cancelled Albumin/Globulin Ratio Cancelled Urine Color Urine Clarity Urine pH Ur Specific Waldo Urine Protein Urine Glucose (UA) Urine Ketones Urine Occult Blood Urine Nitrite Urine Bilirubin Urine Urobilinogen Ur Leukocyte Esterase Urine RBC Urine WBC Ur Squamous Epith Cells Urine Bacteria Urine Mucus Blood Type Antibody Screen 09/07/21 09/07/21 09/07/21 11:00 11:25 11:25 WBC RBC Hgb Hct MCV MCH MCHC RDW Std Deviation RDW Coeff of Jessi Plt Count MPV Immature Gran % (Auto) Neut % (Auto) Lymph % (Auto) Starr % (Auto) Eos % (Auto) Baso % (Auto) Absolute Neuts (auto) Absolute Lymphs (auto) Nucleated RBC % PT 16.2 H INR 1.4 APTT 33.9 Sodium 133 L Potassium 3.3 L Chloride 99 Carbon Dioxide 25.0 Anion Gap 9 BUN 14 Creatinine 0.85 Estim Creat Clear Calc 56.47 Est GFR (MDRD) Af Amer 84 Est GFR (MDRD) Non-Af 69 BUN/Creatinine Ratio 16.4 Glucose 85 Lactic Acid Calcium 7.8 L Total Bilirubin 0.40 AST 13 L ALT 11 L Alkaline Phosphatase 121 H Troponin I High Sens 3 Total Protein 6.3 L Albumin 1.1 L Globulin 5.2 H Albumin/Globulin Ratio 0.2 L Urine Color Urine Clarity Urine pH Ur Specific Waldo Urine Protein Urine Glucose (UA) Urine Ketones Urine Occult Blood Urine Nitrite Urine Bilirubin Urine Urobilinogen Ur Leukocyte Esterase Urine RBC Urine WBC Ur Squamous Epith Cells Urine Bacteria Urine Mucus Blood Type A POSITIVE Antibody Screen NEGATIVE Radiography Diagnostic Testing: Clinical Impression(s) from Imaging Studies Abdomen/Pelvis CT 09/07/21 12:31 IMPRESSION: Status post removal of the left percutaneous nephrostomy catheter with evidence of small perinephric fluid collection on the left side. Stable left staghorn calculus. Bilateral double J stent catheter placement. Electronically Signed: Joaquin Douglass MD at 13:15 EDT , Service support , Discharge Plan Triage Chief Complaint: Wound ED Provider: Martin Davis Dx/Rx/DC Orders Prescriptions: No Action pravastatin 20 MG tablet 20 mg PO QHS RF: 0 venlafaxine 150 MG capsule 150 mg PO DAILY RF: 0 aspirin 81 MG tablet,chewable 81 mg PO DAILY MDD heart health Qty: 0 RF: 0 acetaminophen 500 MG tablet 1,000 mg PO Q6H PRN PRN (Reason: Pain Score 1-10) RF: 0 miconazole nitrate 2 % Powder 1 applic TOPICAL BID RF: 0 omeprazole 20 mg Capsule,Delayed Release(Dr/Ec) 20 mg PO DAILY RF: 0 fosfomycin tromethamine 3 gram Packet 1 packet PO MO RF: 0 methadone 5 mg Tablet 2.5 mg PO BID RF: 0 metoprolol tartrate 25 mg Tablet 25 mg PO BID RF: 0 oxybutynin chloride 10 mg tablet extended release 24hr 10 mg PO DAILY RF: 0 ferrous sulfate 325 mg (65 mg iron) Tablet 325 mg PO BID RF: 0 multivitamin with minerals [Multiple Vitamin-Minerals] Tablet 1 tab PO DAILY RF: 0 Culturelle 10 billion cell Capsule 1 cap PO BID RF: 0 lactulose 10 gram/15 mL Solution 15 ml PO BID RF: 0 Primary Care Provider: Colby Valenzuela
[2021-09-07 10:05] LABS: Mucous, Urine 0 SEEN /hpf (<or=2+)
[2021-09-07] MEDS: Ondansetron 4 MG/2 ML Vial IV (10:07)
[2021-09-07] MEDS: Morphine 4 MG/ML Syringe IV (10:08)
[2021-09-07 10:10] LABS: Color, Urine Yellow (Yellow); Glucose, Dipstick Normal (Normal); Ketone-Dipstick 5 mg/dl (Negative); Leukocyte Esterase-Dipstick 500 /ul (Negative); Nitrite-Dipstick Negative (Negative); Occult Blood-Urine 250 /ul (Negative); Protein-Dipstick 100 mg/dl (Negative); Specific Gravity, Urine 1.015 (1.002-1.030); Urine Bilirubin Dipstick Negative (Negative); Urine Clarity Cloudy (Clear); Urine Urobilinogen Normal (Normal)
[2021-09-07 10:11] LABS: Absolute Lymphocyte Count 0.89 X10^3/uL (0.83-4.51); Absolute Neutrophil Count 17.4 X10^3/uL (2.0-7.7); Basophil# 0.05 X10^3/uL; Basophil% 0.3 % (0-1); Eosinophil# 0.05 X10^3/uL; Eosinophils% 0.3 % (0-5); Hematocrit 35.7 % (37-47); Hemoglobin 11.3 g/dL (12.0-15.0); Lymphocyte # 0.89 X10^3/ul (0.83-4.51); Lymphocyte % 4.6 % (19-41); Mean Corp Hgb Conc 31.7 g/dL (32-36); Mean Corpuscular Hgb 28.2 pg (27.0-32.0); Mean Platelet Vol. 10.3 fl (6.2-12.0); Monocyte% 5.1 % (0-10); NRBC Flagged by Analyzer 0 % (0-5); Platelet Count 549 K/mm3 (150-450); RBC Distribution Width CV 15.2 % (11.6-14.6); RBC Distribution Width SD 49.5 fl (35.1-43.9); Red Blood Count 4.01 M/mm3 (4.2-5.4); White Blood Count 19.5 K/mm3 (4.4-11.0)
--- NOTE | 2021-09-07 10:17 | NURSING ---
PER LAB, A LOT OF THINGS HEMOLIZED. THEY WILL SEND LABELS UP
[2021-09-07 10:18] LABS: Bacteria 2+ /hpf (None Seen); Red Blood Cells-Urine 25-50 SEEN /hpf (0-5); Squamous Epithelial Cells - UA 0-5 SEEN /hpf (5-10); White Blood Cells 25-50 SEEN /hpf (0-5)
[2021-09-07 11:42] LABS: International Normalized Ratio 1.4; Prothrombin Time (Protime)PT. 16.2 SECONDS (11.7-14.9)
[2021-09-07 11:43] LABS: Partial Thromboplast Time 33.9 Seconds (24.1-36.2)
[2021-09-07 11:51] LABS: ALB/GLOB Ratio 0.2 RATIO (0.9-2.4); AST(SGOT) 13 U/L (15-37); Alanine Aminotransfer ALT/SGPT 11 U/L (13-56); Albumin, Serum 1.1 g/dL (3.2-5.0); Alkaline Phosphatase 121 U/L (45-117); Anion Gap 9 (5-15); BUN 14 mg/dL (7-18); BUN/Creat Ratio 16.4 RATIO (10-20); Calcium,Total 7.8 mg/dL (8.5-10.1); Chloride 99 mmol/L (98-107); Creatinine, Serum 0.85 mg/dL (0.55-1.02); EST Glomerular Filtration Rate 69 mL/min (>60); Est Glom Filt Rate - Afr Amer 84 mL/min (>60); Estimated Creatinine Clearance 56.47 ml/min; Globulin 5.2 g/dL (2.2-4.2); Glucose 85 mg/dL (74-106); Potassium 3.3 mmol/L (3.5-5.1); Protein, Total 6.3 g/dL (6.4-8.2); Sodium Level 133 mmol/L (136-145); Troponin-I HS 3 pg/mL (3.0-54.0)
[2021-09-07 11:52] LABS: Lactic Acid 0.7 mmol/L (0.4-1.9)
--- NOTE | 2021-09-07 12:31 | CT_ITS ---
STUDY: CT ABDOMEN AND PELVIS WITH CONTRAST REASON FOR EXAM: Female, 75 years old. Abscess right flank s/p nephrostomy tube removal RADIATION DOSAGE (If Supplied By Facility): CTDIvol = ( 17.35 ) mGy, DLP = ( 1086.70 ) mGycm TECHNIQUE: Transaxial images were obtained from the dome of the diaphragm to the symphysis pubis without oral contrast. IV 100mL Isovue-300 was administered. Sagittal and coronal images were reconstructed. Individualized dose optimization techniques were used for this CT. COMPARISON: Comparison is made with prior study dated 06/09/2021. FINDINGS: Small left pleural effusion with left basilar atelectasis. Small pericardial effusion. Coronary artery calcification. Calcification of the mitral valve annulus. There is decreased attenuation of the liver consistent with steatosis. Mild hepatomegaly. There are surgical clips in the gallbladder fossa consistent with a prior cholecystectomy. There are multiple benign calcified granulomata of the spleen. Normal pancreas. Normal bilateral adrenal glands. A right-sided double-J stent catheter is seen. There is evidence of a 2 cm x 1 cm calculus in the posterior mid pole calyx of the right kidney. There is evidence of a staghorn calculus in the left kidney. There is evidence of a small left perinephric fluid collection. Increased markings are seen in the surrounding perinephric fat. A left-sided double-J stent catheter is seen with the distal tip in the urinary bladder. Previously seen left nephrostomy catheter has been removed. Normal visualized stomach. Normal small intestine. Normal colon. The appendix is visualized and appears normal. Normal abdominal aorta. Normal inferior vena cava. Normal retroperitoneum. A SMITH catheter is seen in the urinary bladder. The urinary bladder is empty. Normal abdominal wall. There are diffuse degenerative changes of the visualized lumbar spine. Loss of height of the L3 vertebrae. Small left pleural effusion with left basilar atelectasis and/or infiltrate. Small pericardial effusion. CT/Abdomen/Pelvis W IV Cont ONLY IMPRESSION: Status post removal of the left percutaneous nephrostomy catheter with evidence of small perinephric fluid collection on the left side. Stable left staghorn calculus. Bilateral double J stent catheter placement. Electronically Signed: Joaquin Douglass MD at 13:15 EDT , Service support ,
--- NOTE | 2021-09-07 13:43 | NURSING ---
We did the NS 1500 ml but we are not doing a sepsis alert with fluid resuscitation at this time - Dr Davis has been aware and has been monitoring with nursing staff
--- NOTE | 2021-09-07 14:16 | NURSING ---
CALLED [facility], TALKED TO RA.
[2021-09-07] MEDS: 0.9% Normal Saline 1,000 ML 999 ML IV (14:39)
--- NOTE | 2021-09-07 15:38 | NURSING ---
[facility] REFUSED PATIENT
--- NOTE | 2021-09-07 16:01 | ED.RN ---
THIS NURSE CALLED TO TALK TO RA AT [facility]. WE ARE REQUESTING TO SPEAK WITH THE UROLOGIST GROUP. DR HOOVER HAS NOT GOTTEN TO TALK TO THE UROLOGIST AT [facility] THAT COMPLETED THE SURGERY. RA AT THE TRANSFER CENTER WAS VERY NICE AND ATTEMPTING TO HELP US CONTACT THE UROLOGY GROUP
--- NOTE | 2021-09-07 16:22 | NURSING ---
HANANE CARTER, FROM DR JAY'S OFFICE ON PHONE FOR DR HOOVER
--- NOTE | 2021-09-07 16:46 | NURSING ---
ACCEPTED AT [facility] ER TO ER
--- NOTE | 2021-09-07 16:53 | NURSING ---
CALLED [facility], ETA IS 2 HRS
--- NOTE | 2021-09-07 18:52 | ED.RN ---
PT GIVEN 500 ML NS BOLUS PER DR WARNER FOR 88/59 BP ON EMS COT. PT TRANSFERRED TO [facility] TO LEAVE WITH THE FLUIDS PER .
--- NOTE | 2021-09-07 18:55 | ED.RN ---
500 ns bolus running at 999 per md verbal order upon transfer.
== END 2021-09-07 18:43 | disposition short-term general hospital (02) ==
LOC: ED 10:52
PROVIDERS: Emergency Provider Student in an Organized Health Care Education/Training Program; PCP Family Medicine
DX: N15.1 Renal and perinephric abscess (principal); I44.1 Atrioventricular block, second degree; D64.9 Anemia, unspecified; I11.0 Hypertensive heart disease with heart failure; I50.9 Heart failure, unspecified; I48.91 Unspecified atrial fibrillation; E11.9 Type 2 diabetes mellitus without complications; E78.5 Hyperlipidemia, unspecified; K21.9 Gastro-esophageal reflux disease without esophagitis; E66.01 Morbid (severe) obesity due to excess calories; F32.A Depression, unspecified; F41.9 Anxiety disorder, unspecified; Z90.49 Acquired absence of other specified parts of digestive tract; Z90.710 Acquired absence of both cervix and uterus; Z79.82 Long term (current) use of aspirin; Z79.899 Other long term (current) drug therapy
CPT/HCPCS: 74177; 80053; 81001; 83605; 84484; 85025; 85610; 85730; 86850; 86900; 86901; 87040; 87070; 87075; 87077; 87086; 87088; 87186; 87205; 93005; 96365; 96366; 96367; 96375; 99285; J7030; J7040; J7050; Q9967; A4216; J2405

== ENCOUNTER 2021-11-08 14:14 | Inpatient (IN) | payer MEDICARE, OTHER, MEDICAID, SELFPAY ==
[2021-11-08] VITALS (10 sets, daily range): BP systolic 96–159; BP diastolic 56–102; PULSE 99–115; RESP 14–19; TEMP 36.3–37.2; O2SAT 94–99; BMI 32.9; BMI 33.7
--- NOTE | 2021-11-08 15:12 | CT_ITS ---
INDICATION: nephrostomy site infection EXAMINATION: CT Abdomen And Pelvis W/ Contrast Injection TECHNIQUE: Helically acquired images were obtained of the abdomen and pelvis after IV contrast. A radiation dose optimization technique was used for this scan. IV Contrast dosage and agent: IV 100mL Isovue-300 Oral contrast: None. COMPARISON: 09/07/2021. FINDINGS: Visualized lung bases: Small left and trace right pleural effusions. Liver: Unremarkable Gallbladder: Surgically absent. Spleen: Multiple splenic granulomas. Pancreas: Unremarkable Adrenal Glands: Unremarkable Kidneys: Multiple nonobstructing stones in the right kidney are again seen. There is redemonstration of a staghorn calculus in the left kidney. There is a large perinephric fluid collection measuring approximately 7.3 x 5.6 cm. There is significant perinephric fat stranding on the left. There is left pelviectasis with few dependent small stones within the pelvis. Vasculature: Mild scattered aortoiliac atherosclerotic calcifications. GI Tract: Unremarkable Lymphadenopathy: None Peritoneum: No ascites. Bladder: SMITH catheter in place. Reproductive organs: Unremarkable Bones/Soft tissues: There are diffuse degenerative changes of the spine. CT/Abdomen/Pelvis W IV Cont ONLY IMPRESSION: Interval increase in size of a now 7.3 cm left perinephric fluid collection concerning for abscess. Stable left staghorn calculus. Small left/trace right pleural effusions. Electronically Signed: Fuad De Luna MD at 17:23 EST Tel , Service support ,
--- NOTE | 2021-11-08 15:13 | EX.ED.DYSGE1 ---
HPI History of Present Illness Chief Complaint: Wound Check Informant: patient Onset/Context/Timing Onset: Days Context: Gradual Onset Narrative Narrative: Patient presents with what she believes is a recurrent infection at her nephrostomy tube site. Patient had a previous left-sided nephrostomy tube that was taken out in March or April of this year. In August she had significant abscess to that site. She required PICC line and IV antibiotics. She reports having increasing swelling and soreness around the site again and is concerned that there is another abscess developing. She reports having some mild chills mid last week but that was related to a sinus infection. She is not currently on antibiotics. Her Henry catheter and bag were changed out to complete new set up yesterday. 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 Kidney calculus Morbid obesity VITA (obstructive sleep apnea) VITA (obstructive sleep apnea) Pressure ulcer of coccygeal region, stage 3 Pyonephrosis Recurrent UTI Renal calculus, bilateral Severe sepsis Ulcer of abdomen wall with fat layer exposed Ulcer of left groin with fat layer exposed UTI (urinary tract infection) due to urinary indwelling catheter V tach Home Medications venlafaxine 150 mg PO DAILY 07/02/19 [History Last Taken 09/06/21] acetaminophen 1,000 mg PO Q6H PRN PRN tablet 02/18/21 [Rx Last Taken 09/06/21] miconazole nitrate 1 applic TOPICAL BID 04/16/21 [History Last Taken 09/06/21] omeprazole 20 mg PO DAILY 04/16/21 [History Last Taken 09/06/21] fosfomycin tromethamine 1 packet PO MO 07/02/21 [History Last Taken 09/06/21] methadone 2.5 mg PO BID 07/02/21 [History Last Taken 09/06/21] metoprolol tartrate 25 mg PO BID 07/02/21 [History Last Taken 09/06/21] ferrous sulfate 325 mg PO BID 09/07/21 [History Last Taken 09/06/21] multivitamin with minerals [Multiple Vitamin-Minerals] 1 tab PO DAILY 09/07/21 [History Last Taken 09/06/21] oxybutynin chloride 10 mg PO DAILY 09/07/21 [History Last Taken 09/06/21] bisacodyl 10 mg [place] DAILY PRN 11/08/21 [History Last Taken Unknown] fluticasone propionate [Flonase] 1 spray INTRANASAL DAILY 11/08/21 [History Last Taken Unknown] polyethylene glycol 3350 [Miralax] 17 g PO DAILY 11/08/21 [History Last Taken Unknown] Allergy/AdvReac Type Severity Reaction Status Date / Time adhesive tape Allergy blisters Verified 07/02/21 09:19 Influenza Virus Vaccines Allergy shortness Verified 07/02/21 09:19 of breath/severe wheezing iron Allergy from IV Verified 07/02/21 09:19 form chest pressure and heart palpitations Sulfa (Sulfonamide Allergy Shortness Verified 07/02/21 09:19 Antibiotics) of breath meloxicam [From Mobic] AdvReac gi upset Verified 07/02/21 09:19 seasonal allergies Allergy Other Uncoded 07/02/21 09:19 Surgical History H/O nephrostomy H/O: hysterectomy History of cholecystectomy History of tonsillectomy Hx of appendectomy Social History Smoking Status: Never smoker substance use type: does not use ROS ROS ED Constitutional Constitutional ED: Reports chills; Denies fever(s) Eyes Eyes: Denies change in vision ENT ENT ED: Denies sore throat Cardiovascular Cardiovascular: Denies chest pain Respiratory/Chest Respiratory/Chest: Denies cough or dyspnea Gastrointestinal Gastrointestinal: Reports nausea; Denies abdominal pain, diarrhea or vomiting Genitourinary Genitourinary ED: Denies dysuria Musculoskeletal Musculoskeletal: Reports back pain Integumentary Reports abscess; Denies rash Neurologic Neurologic: Denies headache(s) or weakness Allergic/Immunologic Allergic/Immunologic ED: Denies urticaria EXAM Physical Exam Const Vital Signs: 11/08/21 14:15 11/08/21 14:34 11/08/21 16:22 Temperature 97.3 F L 97.3 F L 98.9 F Temperature Source Temporal Temporal Temporal Pulse Rate 99 99 99 Respiratory Rate 18 18 16 Respiratory Effort Blood Pressure 130/71 H 130/71 H 118/102 H Blood Pressure Mean 90 90 107 Pulse Ox 97 97 98 Oxygen Delivery Method Room Air Room Air Room Air 11/08/21 16:35 11/08/21 17:00 11/08/21 18:02 Temperature 98.5 F Temperature Source Temporal Pulse Rate 101 H 114 H Respiratory Rate 15 19 H Respiratory Effort Normal Non-Labored Blood Pressure 159/98 H 111/67 Blood Pressure Mean 118 81 Pulse Ox 96 95 Oxygen Delivery Method Room Air Room Air 11/08/21 18:29 Temperature 98.5 F Temperature Source Temporal Pulse Rate 114 H Respiratory Rate 19 H Respiratory Effort Blood Pressure 111/67 Blood Pressure Mean 81 Pulse Ox 95 Oxygen Delivery Method Room Air Positive obese Nutritional Appearance: obese HEENT Reports moist mucous membranes Eyes PERRL and EOMs intact bilaterally Neck supple Chest Wall inspection of chest normal and palpation of chest normal Resp normal respiratory effort and clear to auscultation bilaterally Cardio regular rate and regular rhythm GI normal to inspection, nondistended, normoactive bowel sounds and non-tender Palpation: soft Back/Spine Back/Spine Narrative: Mild tenderness and edema at the prior left nephrostomy tube site. Area of edema measures about 5 x 3 cm. No significant erythema. No drainage. Neuro oriented x3 Sensorium / Orientation: alert Psych mental status grossly normal MDM MDM MDM Narrative Medical decision making narrative: Lab work and cultures obtained. CT scan with IV contrast ordered. Lab Data Attestation: I reviewed the patient's lab results. Labs: Laboratory Results - last 24 hr 11/08/21 11/08/21 11/08/21 15:50 15:50 15:50 WBC 17.1 H RBC 3.54 L Hgb 10.4 L Hct 32.6 L MCV 92.1 MCH 29.4 MCHC 31.9 L RDW Std Deviation 48.2 H RDW Coeff of Jessi 14.2 Plt Count 460 H MPV 9.0 Immature Gran % (Auto) 0.800 Neut % (Auto) 89.1 H Lymph % (Auto) 5.0 L Wilson % (Auto) 4.5 Eos % (Auto) 0.4 Baso % (Auto) 0.2 Absolute Neuts (auto) 15.2 H Absolute Lymphs (auto) 0.85 Nucleated RBC % 0 Sodium 132 L Potassium 4.5 Chloride 97 L Carbon Dioxide 28.0 Anion Gap 7 BUN 13 Creatinine 0.86 Estim Creat Clear Calc 54.96 Est GFR (MDRD) Af Amer 82 Est GFR (MDRD) Non-Af 68 BUN/Creatinine Ratio 15.0 Glucose 98 Lactic Acid Cancelled Calcium 8.7 Total Bilirubin 0.40 Direct Bilirubin < 0.05 AST 41 H ALT 13 Alkaline Phosphatase 142 H Total Protein 7.1 Albumin 1.2 L Globulin 5.9 H Urine Color Urine Clarity Urine pH Ur Specific [place] Urine Protein Urine Glucose (UA) Urine Ketones Urine Occult Blood Urine Nitrite Urine Bilirubin Urine Urobilinogen Ur Leukocyte Esterase Urine RBC Urine WBC Ur Squamous Epith Cells Urine Bacteria Urine Mucus 11/08/21 11/08/21 16:21 17:20 WBC RBC Hgb Hct MCV MCH MCHC RDW Std Deviation RDW Coeff of Jessi Plt Count MPV Immature Gran % (Auto) Neut % (Auto) Lymph % (Auto) Wilson % (Auto) Eos % (Auto) Baso % (Auto) Absolute Neuts (auto) Absolute Lymphs (auto) Nucleated RBC % Sodium Potassium Chloride Carbon Dioxide Anion Gap BUN Creatinine Estim Creat Clear Calc Est GFR (MDRD) Af Amer Est GFR (MDRD) Non-Af BUN/Creatinine Ratio Glucose Lactic Acid 1.8 Calcium Total Bilirubin Direct Bilirubin AST ALT Alkaline Phosphatase Total Protein Albumin Globulin Urine Color Yellow Urine Clarity Cloudy Urine pH 6.0 Ur Specific [place] 1.015 Urine Protein 30 H Urine Glucose (UA) Normal Urine Ketones 5 H Urine Occult Blood 150 H Urine Nitrite Positive H Urine Bilirubin Negative Urine Urobilinogen Normal Ur Leukocyte Esterase 500 H Urine RBC 0-5 SEEN Urine WBC 50-100 SEEN Ur Squamous Epith Cells 0 SEEN Urine Bacteria 2+ Urine Mucus 0 SEEN Radiography Diagnostic Testing: Clinical Impression(s) from Imaging Studies Abdomen/Pelvis CT 11/08/21 15:12 IMPRESSION: Interval increase in size of a now 7.3 cm left perinephric fluid collection concerning for abscess. Stable left staghorn calculus. Small left/trace right pleural effusions. Electronically Signed: Fuad De Luna MD at 17:23 EST Tel , Service support , Treatment and Re-Evaluation Comments:: Lab work reveals elevated white count at 17.1 with left shift. Chemistry studies unremarkable. Urinalysis does show 2+ bacteria with 50-100 white cells. She does have an indwelling Henry catheter but she states the entire set up was changed out yesterday. Patient's last urine culture reviewed and showed Klebsiella and Pseudomonas. These were sensitive to Zosyn. CT of the abdomen and pelvis reveals a 7.3 cm left perinephric abscess. Patient is given Zosyn and vancomycin. I spoke with Dr. Avila at [facility] as patient was treated there previously. He states there is really nothing for urology to do specifically. As long as interventional radiology can place a percutaneous drain she needs that and IV antibiotics. I did verify with radiology that the radiologist this week is able to place a percutaneous drain. I will speak with hospitalist regarding admission. Discharge Plan Triage Chief Complaint: Wound Check ED Provider: Barbie Trammell Dx/Rx/DC Orders Clinical Impression: Perinephric abscess Prescriptions: No Action venlafaxine 150 MG capsule 150 mg PO DAILY RF: 0 acetaminophen 500 MG tablet 1,000 mg PO Q6H PRN PRN (Reason: Pain Score 1-10) RF: 0 miconazole nitrate 2 % Powder 1 applic TOPICAL BID RF: 0 omeprazole 20 mg Capsule,Delayed Release(Dr/Ec) 20 mg PO DAILY RF: 0 fosfomycin tromethamine 3 gram Packet 1 packet PO MO RF: 0 methadone 5 mg Tablet 2.5 mg PO BID RF: 0 metoprolol tartrate 25 mg Tablet 25 mg PO BID RF: 0 oxybutynin chloride 10 mg tablet extended release 24hr 10 mg PO DAILY RF: 0 ferrous sulfate 325 mg (65 mg iron) Tablet 325 mg PO BID RF: 0 Multiple Vitamin-Minerals Tablet 1 tab PO DAILY RF: 0 polyethylene glycol 3350 [Miralax] 17 gram Powder In Packet 17 g PO DAILY RF: 0 bisacodyl 10 mg Suppository 10 mg HI DAILY PRN (Reason: Constipation) RF: 0 fluticasone propionate [Flonase] 50 mcg/actuation [place],Suspension 1 spray INTRANASAL DAILY RF: 0 Primary Care Provider: Colby Valenzuela Referrals: Colby Valenzuela DO [Primary Care Provider] - Disposition Disposition: Acute Care Hospital [facility]
[2021-11-08 16:00] LABS: Absolute Lymphocyte Count 0.85 X10^3/uL (0.83-4.51); Absolute Neutrophil Count 15.2 X10^3/uL (2.0-7.7); Basophil# 0.04 X10^3/uL; Basophil% 0.2 % (0-1); Eosinophil# 0.06 X10^3/uL; Eosinophils% 0.4 % (0-5); Hematocrit 32.6 % (37-47); Hemoglobin 10.4 g/dL (12.0-15.0); Lymphocyte # 0.85 X10^3/ul (0.83-4.51); Mean Corp Hgb Conc 31.9 g/dL (32-36); Mean Corpuscular Hgb 29.4 pg (27.0-32.0); Mean Corpuscular Volume 92.1 fL (81-99); Monocyte# 0.77 X10^3/uL; Monocyte% 4.5 % (0-10); NRBC Flagged by Analyzer 0 % (0-5); Neutrophil # 15.23 X10^3/uL (2.7-7.7); Neutrophil % 89.1 % (47-70); Platelet Count 460 K/mm3 (150-450); RBC Distribution Width CV 14.2 % (11.6-14.6); RBC Distribution Width SD 48.2 fl (35.1-43.9); Red Blood Count 3.54 M/mm3 (4.2-5.4); White Blood Count 17.1 K/mm3 (4.4-11.0)
[2021-11-08 16:18] LABS: AST(SGOT) 41 U/L (15-37); Alanine Aminotransfer ALT/SGPT 13 U/L (13-56); Albumin, Serum 1.2 g/dL (3.2-5.0); Alkaline Phosphatase 142 U/L (45-117); Anion Gap 7 (5-15); BUN 13 mg/dL (7-18); Bilirubin, Direct < 0.05 mg/dL (0.00-0.30); Calcium,Total 8.7 mg/dL (8.5-10.1); Chloride 97 mmol/L (98-107); Creatinine, Serum 0.86 mg/dL (0.55-1.02); EST Glomerular Filtration Rate 68 mL/min (>60); Est Glom Filt Rate - Afr Amer 82 mL/min (>60); Estimated Creatinine Clearance 54.96 ml/min; Globulin 5.9 g/dL (2.2-4.2); Glucose 98 mg/dL (74-106); Potassium 4.5 mmol/L (3.5-5.1); Protein, Total 7.1 g/dL (6.4-8.2); Sodium Level 132 mmol/L (136-145)
[2021-11-08 16:28] LABS: Mucous, Urine 0 SEEN /hpf (<or=2+); Squamous Epithelial Cells - UA 0 SEEN /hpf (5-10)
[2021-11-08] MEDS: Ondansetron 4 MG/2 ML Vial IV (16:29)
[2021-11-08] MEDS: Morphine 4 MG/ML Syringe IV (16:29)
[2021-11-08] MEDS: 0.9% Normal Saline 1,000 ML 150 ML IV ×2 (16:29→22:22)
[2021-11-08 16:43] LABS: Color, Urine Yellow (Yellow); Glucose, Dipstick Normal (Normal); Ketone-Dipstick 5 mg/dl (Negative); Leukocyte Esterase-Dipstick 500 /ul (Negative); Nitrite-Dipstick Positive (Negative); Occult Blood-Urine 150 /ul (Negative); Protein-Dipstick 30 mg/dl (Negative); Specific Gravity, Urine 1.015 (1.002-1.030); Urine Bilirubin Dipstick Negative (Negative); Urine Clarity Cloudy (Clear); Urine Urobilinogen Normal (Normal)
[2021-11-08 16:56] LABS: White Blood Cells 50-100 SEEN /hpf (0-5)
[2021-11-08 16:57] LABS: Bacteria 2+ /hpf (None Seen); Red Blood Cells-Urine 0-5 SEEN /hpf (0-5)
[2021-11-08] MEDS: Piperacil/Tazobactam 3.375 GM Q8 PREMIX IV (17:37)
[2021-11-08 17:58] LABS: Lactic Acid 1.8 mmol/L (0.4-1.9)
--- NOTE | 2021-11-08 19:30 | HP.PCM_ITS ---
HPI - General HPI Narrative Violette Carpenter is a 76-year-old female patient who presents to the emergency room due to recurrent left perinephric abscess. The patient has significant past medical history of a nephrostomy tube placed in the summer time that subsequently developed an abscess apparently in August requiring a week of admission in [facility]. In early October stents and tubes were removed. She states she has had a mild chill but no other major complaints. CT scan reveals a left perinephric abscess of 7 cm. Henry catheter was changed yesterday and is positive for bacteria. Patient was started on vancomycin and Zosyn in the emergency room and will be admitted to general medical floor and consult for interventional radiology to drain this abscess. 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 Kidney calculus Morbid obesity VITA (obstructive sleep apnea) VITA (obstructive sleep apnea) Pressure ulcer of coccygeal region, stage 3 Pyonephrosis Recurrent UTI Renal calculus, bilateral Severe sepsis Ulcer of abdomen wall with fat layer exposed Ulcer of left groin with fat layer exposed UTI (urinary tract infection) due to urinary indwelling catheter V tach Home Medications venlafaxine 150 mg PO DAILY 07/02/19 [History Last Taken 09/06/21] acetaminophen 1,000 mg PO Q6H PRN PRN tablet 02/18/21 [Rx Last Taken 09/06/21] miconazole nitrate 1 applic TOPICAL BID 04/16/21 [History Last Taken 09/06/21] omeprazole 20 mg PO DAILY 04/16/21 [History Last Taken 09/06/21] fosfomycin tromethamine 1 packet PO MO 07/02/21 [History Last Taken 09/06/21] methadone 2.5 mg PO BID 07/02/21 [History Last Taken 09/06/21] metoprolol tartrate 25 mg PO BID 07/02/21 [History Last Taken 09/06/21] ferrous sulfate 325 mg PO BID 09/07/21 [History Last Taken 09/06/21] multivitamin with minerals [Multiple Vitamin-Minerals] 1 tab PO DAILY 09/07/21 [History Last Taken 09/06/21] oxybutynin chloride 10 mg PO DAILY 09/07/21 [History Last Taken 09/06/21] bisacodyl 10 mg [place] DAILY PRN 11/08/21 [History Last Taken Unknown] fluticasone propionate [Flonase] 1 spray INTRANASAL DAILY 11/08/21 [History Last Taken Unknown] polyethylene glycol 3350 [Miralax] 17 g PO DAILY 11/08/21 [History Last Taken Unknown] Allergy/AdvReac Type Severity Reaction Status Date / Time adhesive tape Allergy blisters Verified 07/02/21 09:19 Influenza Virus Vaccines Allergy shortness Verified 07/02/21 09:19 of breath/severe wheezing iron Allergy from IV Verified 07/02/21 09:19 form chest pressure and heart palpitations Sulfa (Sulfonamide Allergy Shortness Verified 07/02/21 09:19 Antibiotics) of breath meloxicam [From Mobic] AdvReac gi upset Verified 07/02/21 09:19 seasonal allergies Allergy Other Uncoded 07/02/21 09:19 Surgical History H/O nephrostomy H/O: hysterectomy History of cholecystectomy History of tonsillectomy Hx of appendectomy Social History Smoking Status: Never smoker substance use type: does not use ROS Constitutional Constitutional: Reports chills and fatigue; Denies fever(s) Eyes Eyes: Denies change in vision ENT HEENT: Denies abnormal hearing Cardiovascular Cardiovascular: Denies chest pain Respiratory/Chest Respiratory/Chest: Denies cough Gastrointestinal Gastrointestinal: Denies abdominal pain Genitourinary Genitourinary: Reports flank pain Musculoskeletal Musculoskeletal: Reports back pain Integumentary Integumentary: Denies dry skin Psychiatric Psychiatric: Denies anxiety Vital Signs Vital Signs Vital Signs: 11/08/21 14:15 11/08/21 14:34 11/08/21 16:22 Temperature 97.3 F L 97.3 F L 98.9 F Temperature Source Temporal Temporal Temporal Pulse Rate 99 99 99 Respiratory Rate 18 18 16 Respiratory Effort Blood Pressure 130/71 H 130/71 H 118/102 H Blood Pressure Mean 90 90 107 Pulse Ox 97 97 98 Oxygen Delivery Method Room Air Room Air Room Air 11/08/21 16:35 11/08/21 17:00 11/08/21 18:02 Temperature 98.5 F Temperature Source Temporal Pulse Rate 101 H 114 H Respiratory Rate 15 19 H Respiratory Effort Normal Non-Labored Blood Pressure 159/98 H 111/67 Blood Pressure Mean 118 81 Pulse Ox 96 95 Oxygen Delivery Method Room Air Room Air 11/08/21 18:29 Temperature 98.5 F Temperature Source Temporal Pulse Rate 114 H Respiratory Rate 19 H Respiratory Effort Blood Pressure 111/67 Blood Pressure Mean 81 Pulse Ox 95 Oxygen Delivery Method Room Air Weight Weight: 210 lb 1.608 oz Body Mass Index (BMI) 32.9 Physical Exam Const alert and oriented x3 General Appearance: cooperative HEENT normocephalic and head/scalp atraumatic Eyes PERRL Neck supple Lymph Lymphatic: no lymphadenopathy noted Resp normal respiratory effort and clear to auscultation bilaterally Cardio regular rate, regular rhythm, S1 normal heart sound and S2 normal heart sound GI normal to inspection, nondistended, normoactive bowel sounds Extremity no clubbing, cyanosis or edema Skin General Skin Exam: turgor normal Neuro CN's II-XII intact bilaterally Psych affect normal Results Lab / Micro Data Result Diagrams: 11/08/21 15:50 11/08/21 15:50 Labs: Laboratory Results - last 24 hr 11/08/21 15:50: WBC 17.1 H, RBC 3.54 L, Hgb 10.4 L, Hct 32.6 L, MCV 92.1, MCH 29.4, MCHC 31.9 L, RDW Std Deviation 48.2 H, RDW Coeff of Jessi 14.2, Plt Count 460 H, MPV 9.0, Immature Gran % (Auto) 0.800, Neut % (Auto) 89.1 H, Lymph % (Auto) 5.0 L, [place] % (Auto) 4.5, Eos % (Auto) 0.4, Baso % (Auto) 0.2, Absolute Neuts (auto) 15.2 H, Absolute Lymphs (auto) 0.85, Nucleated RBC % 0 11/08/21 15:50: Sodium 132 L, Potassium 4.5, Chloride 97 L, Carbon Dioxide 28.0, Anion Gap 7, BUN 13, Creatinine 0.86, Estim Creat Clear Calc 54.96, Est GFR (MDRD) Af Amer 82, Est GFR (MDRD) Non-Af 68, BUN/Creatinine Ratio 15.0, Glucose 98, Calcium 8.7, Total Bilirubin 0.40, Direct Bilirubin < 0.05, AST 41 H, ALT 13, Alkaline Phosphatase 142 H, Total Protein 7.1, Albumin 1.2 L, Globulin 5.9 H 11/08/21 15:50: Lactic Acid Cancelled 11/08/21 16:21: Urine Color Yellow, Urine Clarity Cloudy, Urine pH 6.0, Ur Specific [place] 1.015, Urine Protein 30 H, Urine Glucose (UA) Normal, Urine Ketones 5 H, Urine Occult Blood 150 H, Urine Nitrite Positive H, Urine Bilirubin Negative, Urine Urobilinogen Normal, Ur Leukocyte Esterase 500 H, Urine RBC 0-5 SEEN, Urine WBC 50-100 SEEN, Ur Squamous Epith Cells 0 SEEN, Urine Bacteria 2+, Urine Mucus 0 SEEN 11/08/21 17:20: Lactic Acid 1.8 Radiology Impression Abdomen/Pelvis CT 11/08/21 15:12 IMPRESSION: Interval increase in size of a now 7.3 cm left perinephric fluid collection concerning for abscess. Stable left staghorn calculus. Small left/trace right pleural effusions. Electronically Signed: Fuad De Luna MD at 17:23 EST Tel , Service support , Assessment & Plan Assessment/Plan (1) Perinephric abscess: (2) Debility: (3) Depression: (4) Wheelchair dependence: (5) Hypertension: QUALIFIERS: Hypertension type: essential hypertension Qualified Code(s): I10 - Essential (primary) hypertension (6) Diabetes mellitus type 2 in obese: (7) Acute UTI: (8) History of atrial fibrillation: (9) VITA (obstructive sleep apnea): PLAN: 1. Perinephric abscess?admit patient to general medical floor, continue vancomycin and Zosyn initiated in the emergency room, consult interventional radiology for draining of abscess, CBC BMP in the morning 2. Depression?continue home medication 3. Hypertension?continue routine medications 4. Acute UTI?patient is already on antibiotics for perinephric abscess that will cover the UTI, patient has indwelling Henry catheter that was changed yesterday 5. History of obstructive sleep apnea?patient is noncompliant with CPAP therapy but requests overnight oxygen due to hypoxia 6. DVT prophylaxis?low molecular weight heparin Charges/Coding Visit Charges Inpatient E&M: 02135 Init Hosp L3
[2021-11-09] VITALS (13 sets, daily range): BP systolic 93–131; BP diastolic 55–92; PULSE 78–115; RESP 10–22; TEMP 36.4–36.8; O2SAT 92–100; BMI 33.7
--- NOTE | 2021-11-09 00:32 | CT_ITS ---
PROCEDURE: Left perirenal abscess, no intervention was performed. DATE OF EXAMINATION: 11/01/2021. INDICATION: Female, 76 years old. Left perirenal collection. PHYSICIAN: Ambreen Metcalf MD. RADIATION DOSAGE (If Supplied By Facility): CTDIvol = ( 29.15 ) mGy, DLP = ( 907.85 ) mGycm CONSENT: The risks, benefits and alternatives to the procedure were explained to the patient, and the patient agreed to the procedure and signed the consent. SEDATION: None PROCEDURE/TECHNIQUE: Upon clinical evaluation of the patient demonstrated an abscess tract was visualized in the left back with pus through the tract, patient stated that within the last 24 hours there has been extensive pus excretion. The patient was cleaned and the dressing was changed. A CT scan of the abdomen was performed with the epicenter at the level of the left kidney. Contiguous axial images were obtained, images were reformatted in sagittal and coronal planes. CT scan demonstrated near-complete resolution of the previously visualized subcutaneous collection is present with mild residual stranding in the subcutaneous soft tissues with no dominant abscess collection seen. Stranding of the left perirenal fat planes is also visualized with near-complete resolution of the previously visualized left posterior pararenal collections and the subcapsular collection within the left kidney. Prominence of the left pelvicalyceal system is again visualized. Extensive calcifications within the pelvicalyceal system in the left kidney as well as the right kidney is again visualized. Extensive stranding visualized surrounding the left renal pelvis and the proximal ureter. Degenerative bone changes visualized with grade 1 anterolisthesis of L4 over L5 seen. Impression of the superior endplate of the L2 vertebral body is seen. Decreased intervertebral disc height visualized at multiple levels. CT/CT Guidance Abscess Drg w/Cath IMPRESSION: Near-complete resolution of the previously visualized subcutaneous, peritoneal and left kidney subcapsular collections, no intervention was performed. Electronically Signed: Fercho Metcalf MD at 15:56 EST Tel , Service support ,
[2021-11-09] MEDS: Nystatin Powder 15gm Bottle 1 APPLIC TOPICAL ×3 (00:41→21:16)
[2021-11-09] MEDS: Acetaminophen 500 MG Tablet 1000 MG PO ×3 (01:33→21:31)
[2021-11-09] MEDS: 0.9% Normal Saline 1,000 ML 150 ML IV ×3 (03:51→18:49)
[2021-11-09 06:46] LABS: Absolute Neutrophil Count 19.6 X10^3/uL (2.0-7.7); Basophil# 0.04 X10^3/uL; Basophil% 0.2 % (0-1); Eosinophil# 0.06 X10^3/uL; Eosinophils% 0.3 % (0-5); Hematocrit 27.9 % (37-47); Hemoglobin 9.4 g/dL (12.0-15.0); Lymphocyte % 3.7 % (19-41); Mean Corp Hgb Conc 33.7 g/dL (32-36); Mean Corpuscular Hgb 29.5 pg (27.0-32.0); Mean Corpuscular Volume 87.5 fL (81-99); Mean Platelet Vol. 8.9 fl (6.2-12.0); Monocyte# 0.79 X10^3/uL; Monocyte% 3.7 % (0-10); NRBC Flagged by Analyzer 0 % (0-5); Neutrophil # 19.59 X10^3/uL (2.7-7.7); Neutrophil % 90.9 % (47-70); Platelet Count 493 K/mm3 (150-450); RBC Distribution Width SD 44.4 fl (35.1-43.9); Red Blood Count 3.19 M/mm3 (4.2-5.4); White Blood Count 21.5 K/mm3 (4.4-11.0)
[2021-11-09 06:52] LABS: International Normalized Ratio 1.4; Prothrombin Time (Protime)PT. 16.2 SECONDS (11.7-14.9)
[2021-11-09 07:09] LABS: Anion Gap 8 (5-15); BUN 11 mg/dL (7-18); BUN/Creat Ratio 14.4 RATIO (10-20); Calcium,Total 7.9 mg/dL (8.5-10.1); Chloride 99 mmol/L (98-107); Creatinine, Serum 0.77 mg/dL (0.55-1.02); EST Glomerular Filtration Rate 78 mL/min (>60); Est Glom Filt Rate - Afr Amer 95 mL/min (>60); Estimated Creatinine Clearance 47.27 ml/min; Glucose 99 mg/dL (74-106); Potassium 3.2 mmol/L (3.5-5.1); Sodium Level 133 mmol/L (136-145)
--- NOTE | 2021-11-09 09:32 | CASEMGMT ---
Addendum entered by Asya Acosta 11/09/21 12:33: SW received message from Rosa Maria at [facility] stating pt is under Medicaid/bed hold at their facility and pt can return when pt is medically cleared. Addendum entered by Asya Acosta 11/09/21 10:36: SW in to speak with pt. SW introduced self and role at [facility]. Pt states she remembers this worker from previous visits. Pt confirms that she came from [facility] and will be returning there at discharge. SW faxed updated clinicals to [facility]. Original Note: Social Work Note SW reviewed chart. Pt is listed as being from [facility]. ELIAS placed a call to [facility] and left message for Rosa Maria in administration regarding pt. Asya Acosta WILDLIFE BIOLOGY TECHNICIAN, STORE MANAGEMENT TRAINEE
[2021-11-09] MEDS: Potassium Chloride Oral Tablet 20 MEQ 40 MEQ PO (10:02)
[2021-11-09] MEDS: Metoprolol Tartrate 25 MG Tablet PO (10:03)
[2021-11-09] MEDS: fentaNYL 100 MCG/2 ML Ampul IV (12:47)
[2021-11-09] MEDS: Midazolam 2 MG/2 ML Syringe IV (12:52)
[2021-11-09] MEDS: 0.9% Saline Lock 10 ML Syringe IV (12:54)
--- NOTE | 2021-11-09 13:10 | NURSING ---
abd applied to drainage site and secured with tape. yellow thick drainage seeping from site on left flank/back area.
--- NOTE | 2021-11-09 13:56 | NURSING ---
Nurse to nurse report given to Anurag MUÑOZ on [facility]. pt given ice chips/sips of water. will transport back to [facility] per bed
--- NOTE | 2021-11-09 14:31 | CASEMGMT ---
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 SW reviewed chart. HCPOA and LW are on chart. SW printed off copies and placed on pt's chart. Asya Acosta BRAKES INSPECTOR, HEALTH SCIENCES DEPARTMENT CHAIR
--- NOTE | 2021-11-09 14:44 | WOUNDNOTE ---
Pt back from CT scan. interventional radiologist did not feel that placing a drain was the best idea at this time. patient still having copious amounts of purulent drainage. this nurse placed an ostomy appliance over the opening to collect the drainage. cultures had been sent as ordered. Dr Wan in room and assessed the areas as well. will monitor.
[2021-11-09] MEDS: Ferrous Sulfate 325 MG Tablet PO (15:13)
[2021-11-09] MEDS: Multivitamins,Ther W-Minerals Tablet 1 TABLET PO (15:14)
[2021-11-09] MEDS: Venlafaxine XR 150 MG Capsule PO (15:14)
[2021-11-09] MEDS: Pantoprazole Sodium 20 MG Tablet PO (15:15)
[2021-11-09] MEDS: Fluticasone 0.05% 1 SPRAY NASAL.SRY NASAL (15:25)
[2021-11-09 16:17] LABS: M R Staph aureus DNA By PCR Negative (Negative); Probe Check PASS; Specimen Processing Control PASS; Staph aureus DNA By PCR NEGATIVE (Negative)
--- NOTE | 2021-11-09 20:27 | PN.HOSP_ITS ---
Subjective Subjective Patient was seen and examined today, her abscess area on her left flank spontaneously opened and a large amount of purulent material was expelled, this was cultured, patient's blood culture today resulted in showing gram-positive cocci in both blood cultures. Patient did not require drainage via CT today as the abscess area was markedly reduced. Patient currently is on Zosyn, I will add vancomycin as an additional agent for now. ID will see the patient tomorrow-I talked by phone with them today. Objective Data Objective Data Vital Signs: Vital Signs Temp Pulse Resp BP Pulse Ox 98.1 F 96 16 98/57 L 99 11/09/21 15:01 11/09/21 15:01 11/09/21 15:01 11/09/21 15:01 11/09/21 15:01 Oxygen Flow Rate (L/min) [6] 3 Oxygen Flow Rate (L/min) [5] 3 Oxygen Flow Rate (L/min) [4] 3 Oxygen Flow Rate (L/min) [3] 3 Oxygen Flow Rate (L/min) [2] 3 Oxygen Flow Rate (L/min) [1 ( 3 Initial Baseline)] Oxygen Flow Rate (L/min) 3 Oxygen Delivery Method [7] Room Air Oxygen Delivery Method [6] Room Air Oxygen Delivery Method [4] Nasal Cannula Oxygen Delivery Method [3] Room Air Oxygen Delivery Method [2] Nasal Cannula Oxygen Delivery Method [1 ( Nasal Cannula Initial Baseline)] Oxygen Delivery Method Room Air Weight: 97.7 kg Body Mass Index (BMI) 33.7 Intake & Output: Intake and Output for Last 24 Hours 11/07/21 11/08/21 11/09/21 23:59 23:59 23:59 Intake Total 1032.5 / 1032.5 2825.0 / 2825.0 Output Total 675 / 675 Balance 1032.5 / 1032.5 2150.0 / 2150.0 Lab / Micro Data Result Diagrams: 11/10/21 11:10 11/10/21 11:10 Labs: Laboratory Results - last 24 hr 11/09/21 05:55: WBC 21.5 H, RBC 3.19 L, Hgb 9.4 L, Hct 27.9 L, MCV 87.5, MCH 29.5, MCHC 33.7 D, RDW Std Deviation 44.4 H, RDW Coeff of Jessi 14.0, Plt Count 493 H, MPV 8.9, Immature Gran % (Auto) 1.200 H, Neut % (Auto) 90.9 H, Lymph % (Auto) 3.7 L, [place] % (Auto) 3.7, Eos % (Auto) 0.3, Baso % (Auto) 0.2, Absolute Neuts (auto) 19.6 H, Absolute Lymphs (auto) 0.80 L, Nucleated RBC % 0 11/09/21 05:55: PT 16.2 H, INR 1.4 11/09/21 05:55: Sodium 133 L, Potassium 3.2 L, Chloride 99, Carbon Dioxide 26.0, Anion Gap 8, BUN 11, Creatinine 0.77, Estim Creat Clear Calc 47.27, Est GFR (MDRD) Af Amer 95, Est GFR (MDRD) Non-Af 78, BUN/Creatinine Ratio 14.4, Glucose 99, Calcium 7.9 L 11/09/21 14:20: S.aureus Protein A PCR NEGATIVE, MRSA (PCR) Negative Micro: Microbiology 11/08/21 16:30 Blood Culture (Wb) - Anticubital Right Blood Culture - Preliminary 11/08/21 16:21 Urine Catheter - Catheter Urine Culture - Preliminary GNR lactose academic dean Radiography Diagnostic Testing: Radiology Impression Abscess Drainage CT 11/09/21 00:32 IMPRESSION: Near-complete resolution of the previously visualized subcutaneous, peritoneal and left kidney subcapsular collections, no intervention was performed. Electronically Signed: Fercho Metcalf MD at 15:56 EST Tel , Service support , Physical Exam Const alert, oriented x3 and no apparent distress Constitutional Narrative: Patient appears older than her stated age General Appearance: cooperative, well kempt and well developed Orientation / Consciousness: awake, oriented to person, oriented to place and oriented to time HEENT normocephalic, head/scalp atraumatic and moist oral mucous membranes Head and Scalp: normocephalic Eyes conjunctivae normal Neck nuchal rigidity, no JVD and thyroid normal General: trachea midline Resp normal respiratory effort, no retractions, no use of accessory muscles and clear to auscultation bilaterally Auscultation: Negative for rales, rhonchi or wheezes Cardio regular rate, regular rhythm, S1 normal heart sound, S2 normal heart sound, no murmurs, no rub and no gallops GI normal to inspection, nondistended, normoactive bowel sounds, soft to palpation, non-tender and non-distended Extremity no clubbing, cyanosis or edema Skin Skin Narrative: There is a small opening visible over the left upper flank area of the patient, this area is draining purulent material upon compression of the surrounding skin. This area is tender to palpation according the patient General Skin Exam: no breakdown Neuro oriented x3, CN's II-XII intact bilaterally, no focal motor deficits and no sensory deficits noted Sensorium / Orientation: awake and alert Speech: speech normal Psych thought process normal and affect normal Assessment & Plan Assessment/Plan (1) Perinephric abscess: PLAN: 1. Acute sepsis secondary to left perinephric abscess-awaiting final blood cultures on the patient, patient will remain on Zosyn and vancomycin for now, ID will see the patient #2 Left perinephric abscess-cultures were obtained today by the wound care alex se, patient will remain on Zosyn and I have added vancomycin for additional coverage. I talked with ID briefly today and they will see the patient in consultation. #3 severe spinal stenosis-patient is currently in a nursing home facility full-time, she states she is not able to walk very far without severe weakness in her legs. PT and OT are participating in her care #4 chronic kidney disease stage IIIa-patient's labs will be monitored #5 essential hypertension-patient is on oral blood pressure medications at this time. Charges/Coding Visit Charges Inpatient E&M: 09175 Subs Hosp L2
--- NOTE | 2021-11-10 00:26 | PHA.PHARE_ITS ---
Consult Pharmacy has been consulted to manage selected antiobiotic: Vancomycin Type of Consult: New start Suspected Infection: Skin/Soft tissue Prior Doses of Antibiotics Received/Current Regimen: Medications Vancomycin HCl 1,250 mg/ (Sodium Chloride) 275 mls @ 167 mls/hr IV Q12H ZARINA Discontinued Medications Vancomycin HCl 2,000 mg/ (Sodium Chloride) 540 mls @ 250 mls/hr IV X1 ONE Stop: 11/09/21 23:09 Last Admin: 11/10/21 00:10 Dose: Infused Documented by: Labs: Sodium 133 mmol/L (136-145) L 11/09/21 05:55 Potassium 3.2 mmol/L (3.5-5.1) L 11/09/21 05:55 Chloride 99 mmol/L (98-107) 11/09/21 05:55 Carbon Dioxide 26.0 mmol/L (21.0-32.0) 11/09/21 05:55 Anion Gap 8 (5-15) 11/09/21 05:55 BUN 11 mg/dL (7-18) 11/09/21 05:55 Creatinine 0.77 mg/dL (0.55-1.02) 11/09/21 05:55 Est GFR (MDRD) Af Amer 95 mL/min (>60) 11/09/21 05:55 Est GFR (MDRD) Non-Af 78 mL/min (>60) 11/09/21 05:55 BUN/Creatinine Ratio 14.4 RATIO (10-20) 11/09/21 05:55 Glucose 99 mg/dL (74-106) 11/09/21 05:55 Microbiology: Microbiology 11/08/21 16:30 Blood Culture (Wb) - Anticubital Right Blood Culture - Preliminary 11/08/21 16:21 Urine Catheter - Catheter Urine Culture - Preliminary GNR lactose 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 Follow-Up Labs: Trough Vancomycin Labs to be done on [date and time ordered]: 11/11/21 @0900
[2021-11-10 03:50] VITALS: BP 101/85; PULSE 95; RESP 18; TEMP 36.4; O2SAT 99
[2021-11-10] MEDS: 0.9% Normal Saline 1,000 ML 150 ML IV ×3 (03:58→19:48)
--- NOTE | 2021-11-10 05:03 | NURSING ---
Pt was incontinent of large amount of urine, leaking from around suprapubic cath as well. Cath flushed per TONI Gaitan and checked balloon, advanced catheter, flushed again, no return urine. Dressing placed around cath site, will consult urology.
[2021-11-10 09:18] VITALS: BP 136/80; PULSE 86; RESP 16; TEMP 36.7; O2SAT 94
--- NOTE | 2021-11-10 09:38 | WOUNDNOTE ---
Some leakage noted from under the ostomy appliance over the old nephrostomy site. still some purulent drainage noted. much less today. still some mild malodor noted. cleansed site with soap and water. pat dry. applied a new ostomy appliance. pt tolerated well.
[2021-11-10] MEDS: Multivitamins,Ther W-Minerals Tablet 1 TABLET PO (09:40)
[2021-11-10] MEDS: Venlafaxine XR 150 MG Capsule PO (09:40)
[2021-11-10 09:41] VITALS: PULSE 86
[2021-11-10] MEDS: Metoprolol Tartrate 25 MG Tablet PO ×2 (09:41→21:10)
[2021-11-10] MEDS: Fluticasone 0.05% 1 SPRAY NASAL.SRY NASAL (09:41)
[2021-11-10] MEDS: Nystatin Powder 15gm Bottle 1 APPLIC TOPICAL ×2 (09:42→21:05)
[2021-11-10] MEDS: Pantoprazole Sodium 20 MG Tablet PO (09:42)
[2021-11-10] MEDS: Enoxaparin 40 MG/0.4 ML Syringe SC (09:42)
[2021-11-10] MEDS: Polyethylene Glycol 3350 17 GM PACKET PO (09:44)
--- NOTE | 2021-11-10 09:46 | WOUNDNOTE ---
wound photo: yimi
[2021-11-10 11:19] LABS: Absolute Lymphocyte Count 0.45 X10^3/uL (0.83-4.51); Absolute Neutrophil Count 5.4 X10^3/uL (2.0-7.7); Basophil# 0.06 X10^3/uL; Basophil% 0.9 % (0-1); Eosinophil# 0.24 X10^3/uL; Eosinophils% 3.6 % (0-5); Hematocrit 32.5 % (37-47); Hemoglobin 10.3 g/dL (12.0-15.0); Lymphocyte # 0.45 X10^3/ul (0.83-4.51); Lymphocyte % 6.7 % (19-41); Mean Corp Hgb Conc 31.7 g/dL (32-36); Mean Corpuscular Hgb 29.6 pg (27.0-32.0); Mean Platelet Vol. 8.6 fl (6.2-12.0); Monocyte# 0.39 X10^3/uL; Monocyte% 5.8 % (0-10); NRBC Flagged by Analyzer 0 % (0-5); Neutrophil # 5.43 X10^3/uL (2.7-7.7); Neutrophil % 81.2 % (47-70); POSITIVE DIFFERENTIAL YES; Platelet Count 428 K/mm3 (150-450); RBC Distribution Width CV 14.6 % (11.6-14.6); RBC Distribution Width SD 49.4 fl (35.1-43.9); Red Blood Count 3.48 M/mm3 (4.2-5.4); White Blood Count 6.7 K/mm3 (4.4-11.0)
[2021-11-10 11:25] LABS: Differential Indicated SCAN CRITERIA MET; Mean Corpuscular Volume 93.4 fL (81-99)
[2021-11-10 11:50] LABS: Anion Gap 5 (5-15); BUN 11 mg/dL (7-18); BUN/Creat Ratio 14.2 RATIO (10-20); Calcium,Total 8.1 mg/dL (8.5-10.1); Chloride 106 mmol/L (98-107); Creatinine, Serum 0.78 mg/dL (0.55-1.02); EST Glomerular Filtration Rate 77 mL/min (>60); Est Glom Filt Rate - Afr Amer 93 mL/min (>60); Estimated Creatinine Clearance 47.27 ml/min; Glucose 88 mg/dL (74-106); Potassium 3.6 mmol/L (3.5-5.1); Sodium Level 135 mmol/L (136-145)
[2021-11-10 12:09] LABS: Anisocytosis 1+; Platelet Estimate ADEQUATE (ADEQ); Red Cell Morphology N CHROM NORMAL (NORM C&C)
[2021-11-10 14:18] VITALS: BP 109/66; PULSE 86; RESP 16; TEMP 36.7; O2SAT 99
[2021-11-10] MEDS: Ferrous Sulfate 325 MG Tablet PO (14:35)
--- NOTE | 2021-11-10 18:38 | PCM.CONS.GEN ---
Assessment & Plan Assessment/Plan (1) Suprapubic catheter: (2) Perinephric abscess: (3) Kidney stone: PLAN: The suprapubic tube was removed with deflation of the balloon. The area was cleansed with Betadine and a new 24 Czech 30 cc balloon Henry catheter was inserted under sterile technique into the urinary bladder and the balloon was filled with 30 cc of sterile saline. The catheter was flushed and appropriately drained. It was then placed to straight drain. There were no complications during this procedure. Continue antibiotics and drainage of renal abscess. Continue supportive care. She will follow up with her urologist in [place]. HPI Consult Data Date of Consult: 11/10/21 HPI Narrative HPI Narrative: ISELA CAMARENA, is a 76 F who is admitted with a perirenal abscess that opened to her skin and is draining. Her chronic suprapubic tube has not been draining. I have been consulted for changing of her suprapubic tube. She is feeling better since her abscess opened and is draining. [facility] Medical History (Updated 11/10/21 @ 18:[address] 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 Kidney calculus Morbid obesity VITA (obstructive sleep apnea) VITA (obstructive sleep apnea) Pressure ulcer of coccygeal region, stage 3 Pyonephrosis Recurrent UTI Renal calculus, bilateral Severe sepsis Suprapubic catheter Ulcer of abdomen wall with fat layer exposed Ulcer of left groin with fat layer exposed UTI (urinary tract infection) due to urinary indwelling catheter V tach Home Medications venlafaxine 150 mg PO DAILY 07/02/19 [History Last Taken 09/06/21] acetaminophen 1,000 mg PO Q6H PRN PRN tablet 02/18/21 [Rx Last Taken 09/06/21] miconazole nitrate 1 applic TOPICAL BID 04/16/21 [History Last Taken 09/06/21] omeprazole 20 mg PO DAILY 04/16/21 [History Last Taken 09/06/21] fosfomycin tromethamine 1 packet PO MO 07/02/21 [History Last Taken 09/06/21] methadone 2.5 mg PO BID 07/02/21 [History Last Taken 09/06/21] metoprolol tartrate 25 mg PO BID 07/02/21 [History Last Taken 09/06/21] ferrous sulfate 325 mg PO BID 09/07/21 [History Last Taken 09/06/21] multivitamin with minerals [Multiple Vitamin-Minerals] 1 tab PO DAILY 09/07/21 [History Last Taken 09/06/21] oxybutynin chloride 10 mg PO DAILY 09/07/21 [History Last Taken 09/06/21] bisacodyl 10 mg VA DAILY PRN 11/08/21 [History Last Taken Unknown] fluticasone propionate [Flonase] 1 spray INTRANASAL DAILY 11/08/21 [History Last Taken Unknown] polyethylene glycol 3350 [Miralax] 17 g PO DAILY 11/08/21 [History Last Taken Unknown] Allergy/AdvReac Type Severity Reaction Status Date / Time adhesive tape Allergy blisters Verified 07/02/21 09:19 Influenza Virus Vaccines Allergy shortness Verified 07/02/21 09:19 of breath/severe wheezing iron Allergy from IV Verified 07/02/21 09:19 form chest pressure and heart palpitations Sulfa (Sulfonamide Allergy Shortness Verified 07/02/21 09:19 Antibiotics) of breath meloxicam [From Mobic] AdvReac gi upset Verified 07/02/21 09:19 seasonal allergies Allergy Other Uncoded 07/02/21 09:19 Surgical History H/O nephrostomy H/O: hysterectomy History of cholecystectomy History of tonsillectomy Hx of appendectomy Social History Smoking Status: Never smoker substance use type: does not use ROS ROS Narrative The patient denies abdominal pain. She reports that her suprapubic tube was last changed 3 days ago and does not feel like it has been sitting appropriately within the bladder. Constitutional Constitutional: Denies change in weight or chills Eyes Eyes: Denies change in vision ENT HEENT: Reports other Details: No change Cardiovascular Cardiovascular: Reports abdominal pain Respiratory/Chest Respiratory/Chest: Reports systems reviewed and no addt'l complaints, except as documented Gastrointestinal Gastrointestinal: Reports systems reviewed and no addt'l complaints, except as documented Genitourinary Genitourinary: Reports urinary incontinence and other Details: The suprapubic tube has been leaking urine around the SPT site and from the urethra. Her abscess it has an ostomy bag and is draining purulent fluid. Physical Exam Narrative The patient is awake, alert and oriented x3. She is sitting up in bed and has just finished her dinner. She has no specific complaints at this time. Const alert, oriented x3 and no apparent distress General Appearance: cooperative and comfortable Nutritional Appearance: morbidly obese HEENT normocephalic, head/scalp atraumatic, hearing grossly normal bilaterally and external ears normal Eyes conjunctivae normal and no scleral icterus General Eye: normal appearance of both eyes Neck supple General: trachea midline Chest inspection of chest normal Resp normal respiratory effort, normal air movement, no retractions and no use of accessory muscles Effort and Inspection: able to speak in complete sentences Cardio regular rate and regular rhythm GI soft to palpation, non-tender and non-distended Inspection: pannus present Narrative: Suprapubic tube site appears within normal limits. It is underneath her pannus. She has an ostomy bag over a left flank fistulous drainage tract. Extremity Extremity Narrative: The patient is nonambulatory with atrophy of her lower extremities. Lab / Micro Data Result Diagrams: 11/10/21 11:10 11/10/21 11:10 Labs: Laboratory Results - last 24 hr 11/10/21 11:10: WBC 6.7, RBC 3.48 L, Hgb 10.3 L, Hct 32.5 L, MCV 93.4 D, MCH 29.6, MCHC 31.7 L D, RDW Std Deviation 49.4 H, RDW Coeff of Jessi 14.6, Plt Count 428, MPV 8.6, Immature Gran % (Auto) 1.800 H, Neut % (Auto) 81.2 H, Lymph % (Auto) 6.7 L, [place] % (Auto) 5.8, Eos % (Auto) 3.6, Baso % (Auto) 0.9, Absolute Neuts (auto) 5.4, Absolute Lymphs (auto) 0.45 L, Nucleated RBC % 0, Differential Comment , Platelet Estimate ADEQUATE, RBC Morphology N CHROM, Anisocytosis 1+ 11/10/21 11:10: Sodium 135 L, Potassium 3.6, Chloride 106, Carbon Dioxide 24.0, Anion Gap 5, BUN 11, Creatinine 0.78, Estim Creat Clear Calc 47.27, Est GFR (MDRD) Af Amer 93, Est GFR (MDRD) Non-Af 77, BUN/Creatinine Ratio 14.2, Glucose 88, Calcium 8.1 L Micro: Microbiology 11/09/21 14:20 Wound Abcess - No Site/Description Given Gram Stain - Final 11/09/21 14:20 Wound Abcess - No Site/Description Given Wound Culture - Preliminary Gram negative odin 11/08/21 16:30 Blood Culture (Wb) - Anticubital Right Bacteria Detection (PCR) - Final Staphylococcus epidermidis Staphylococcus lugdunensis 11/08/21 16:30 Blood Culture (Wb) - Anticubital Right Blood Culture - Preliminary Staphylococcus epidermidis Staphylococcus lugdunensis 11/08/21 16:21 Urine Catheter - Catheter Urine Culture - Preliminary Klebsiella pneumoniae sp pneum
--- NOTE | 2021-11-10 20:01 | PCM.PN.HOSP ---
Subjective Subjective Patient was seen and examined today, her white blood cell count today is normal, her blood culture was positive for staph epidermidis and another staph species that indicates probable skin contamination, I talked with infectious diseases by phone today and they were okay with stopping her vancomycin. ID will see the patient tomorrow, they did not want a PICC line inserted, they felt that the patient might be able to go back to her prison facility with oral antibiotics. I had to have urology see the patient due to some problems with her suprapubic catheter. Objective Data Objective Data Vital Signs: Vital Signs Temp Pulse Resp BP Pulse Ox 98.0 F 86 16 109/66 99 11/10/21 14:18 11/10/21 14:18 11/10/21 14:18 11/10/21 14:18 11/10/21 14:18 Oxygen Flow Rate (L/min) [6] 3 Oxygen Flow Rate (L/min) [5] 3 Oxygen Flow Rate (L/min) [4] 3 Oxygen Flow Rate (L/min) [3] 3 Oxygen Flow Rate (L/min) [2] 3 Oxygen Flow Rate (L/min) [1 ( 3 Initial Baseline)] Oxygen Flow Rate (L/min) 2 Oxygen Delivery Method [7] Room Air Oxygen Delivery Method [6] Room Air Oxygen Delivery Method [4] Nasal Cannula Oxygen Delivery Method [3] Room Air Oxygen Delivery Method [2] Nasal Cannula Oxygen Delivery Method [1 ( Nasal Cannula Initial Baseline)] Oxygen Delivery Method Room Air Weight: 97.7 kg Body Mass Index (BMI) 33.7 Intake & Output: Intake and Output for Last 24 Hours 11/08/21 11/09/21 11/10/21 23:59 23:59 23:59 Intake Total 1032.5 / 1032.5 3125.0 / 3125.0 3965.0 / 3965.0 Output Total 675 / 675 1125 / 1125 Balance 1032.5 / 1032.5 2450.0 / 2450.0 2840.0 / 2840.0 Lab / Micro Data Result Diagrams: 11/10/21 11:10 11/10/21 11:10 Labs: Laboratory Results - last 24 hr 11/10/21 11:10: WBC 6.7, RBC 3.48 L, Hgb 10.3 L, Hct 32.5 L, MCV 93.4 D, MCH 29.6, MCHC 31.7 L D, RDW Std Deviation 49.4 H, RDW Coeff of Jessi 14.6, Plt Count 428, MPV 8.6, Immature Gran % (Auto) 1.800 H, Neut % (Auto) 81.2 H, Lymph % (Auto) 6.7 L, [place] % (Auto) 5.8, Eos % (Auto) 3.6, Baso % (Auto) 0.9, Absolute Neuts (auto) 5.4, Absolute Lymphs (auto) 0.45 L, Nucleated RBC % 0, Differential Comment , Platelet Estimate ADEQUATE, RBC Morphology N CHROM, Anisocytosis 1+ 11/10/21 11:10: Sodium 135 L, Potassium 3.6, Chloride 106, Carbon Dioxide 24.0, Anion Gap 5, BUN 11, Creatinine 0.78, Estim Creat Clear Calc 47.27, Est GFR (MDRD) Af Amer 93, Est GFR (MDRD) Non-Af 77, BUN/Creatinine Ratio 14.2, Glucose 88, Calcium 8.1 L Micro: Microbiology 11/09/21 14:20 Wound Abcess - No Site/Description Given Gram Stain - Final 11/09/21 14:20 Wound Abcess - No Site/Description Given Wound Culture - Preliminary Gram negative odin 11/08/21 16:30 Blood Culture (Wb) - Anticubital Right Bacteria Detection (PCR) - Final Staphylococcus epidermidis Staphylococcus lugdunensis 11/08/21 16:30 Blood Culture (Wb) - Anticubital Right Blood Culture - Preliminary Staphylococcus epidermidis Staphylococcus lugdunensis 11/08/21 16:21 Urine Catheter - Catheter Urine Culture - Preliminary Klebsiella pneumoniae sp pneum Physical Exam Const alert, oriented x3 and no apparent distress Constitutional Narrative: Patient appears older than her stated age General Appearance: cooperative, well kempt and well developed Orientation / Consciousness: awake, oriented to person, oriented to place and oriented to time HEENT normocephalic, head/scalp atraumatic and moist oral mucous membranes Head and Scalp: normocephalic Eyes PERRL, EOMs intact bilaterally and conjunctivae normal Neck nuchal rigidity, supple, no JVD, thyroid normal and no carotid bruits General: trachea midline Resp normal respiratory effort, no retractions, no use of accessory muscles and clear to auscultation bilaterally Auscultation: Negative for rales, rhonchi or wheezes Cardio regular rate, regular rhythm, S1 normal heart sound, S2 normal heart sound, no murmurs, no rub and no gallops GI normal to inspection, nondistended, normoactive bowel sounds, soft to palpation, non-tender and non-distended Skin Skin Narrative: There is an open area on her left flank area that is covered with an ostomy bag General Skin Exam: no breakdown Neuro oriented x3, CN's II-XII intact bilaterally, no focal motor deficits and no sensory deficits noted Sensorium / Orientation: awake and alert Speech: speech normal Psych thought process normal and affect normal Assessment & Plan Assessment/Plan (1) Perinephric abscess: PLAN: 1. Acute sepsis secondary to left perinephric abscess-awaiting final blood cultures on the patient, patient will remain on Zosyn for now, ID will see the patient tomorrow #2 Left perinephric abscess-there is growth of gram-negative bacteria at this time which is not identified, patient will remain on Zosyn #3 severe spinal stenosis-patient is currently in a prison facility full-time, she states she is not able to walk very far without severe weakness in her legs. PT and OT are participating in her care #4 chronic kidney disease stage IIIa-patient's labs will be monitored #5 essential hypertension-patient is on oral blood pressure medications at this time. Charges/Coding Visit Charges Inpatient E&M: 38444 Subs Hosp L2
[2021-11-10 21:10] VITALS: PULSE 90
[2021-11-10 21:13] VITALS: BP 129/64; PULSE 90; RESP 16; TEMP 36.6; O2SAT 100
[2021-11-10] MEDS: Acetaminophen 500 MG Tablet 1000 MG PO (21:16)
[2021-11-11] VITALS (9 sets, daily range): BP systolic 113–147; BP diastolic 60–88; PULSE 79–96; RESP 16–18; TEMP 36.2–36.7; O2SAT 89–100
[2021-11-11] MEDS: 0.9% Normal Saline 1,000 ML 150 ML IV ×3 (02:06→16:16)
[2021-11-11] MEDS: Metoprolol Tartrate 25 MG Tablet PO ×2 (09:46→21:56)
[2021-11-11] MEDS: Enoxaparin 40 MG/0.4 ML Syringe SC (09:46)
[2021-11-11] MEDS: Pantoprazole Sodium 20 MG Tablet PO (10:29)
[2021-11-11] MEDS: Multivitamins,Ther W-Minerals Tablet 1 TABLET PO (10:29)
[2021-11-11] MEDS: Acetaminophen 500 MG Tablet 1000 MG PO ×2 (10:29→21:47)
[2021-11-11] MEDS: Venlafaxine XR 150 MG Capsule PO (10:30)
[2021-11-11] MEDS: Nystatin Powder 15gm Bottle 1 APPLIC TOPICAL ×2 (10:30→21:54)
--- NOTE | 2021-11-11 11:21 | PCM.CONS.GEN ---
Assessment & Plan Assessment/Plan (1) Perinephric abscess: PLAN: At this time we will continue empiric Zosyn, hopefully have further information on the gram-negative pathogen tomorrow to further dictate specific antimicrobial agent to go home on. My hope is to treat her with oral agent upon discharge. HPI Consult Data Date of Consult: 11/11/21 HPI Narrative HPI Narrative: ISLEA CAMARENA, is a 76 F who presents earlier this week with drainage of purulent material from the left flank. Patient was found to have a left perinephric abscess and empirically placed on broad-spectrum antimicrobial therapy. In talking to patient she denied any fevers or chills prior to coming into the hospital. Patient did have a follow-up CT scan of the abdomen pelvis yesterday that showed decompression/resolution of the abscess in the left flank. Currently on Zosyn. Wound culture growing gram-negative odin and Enterococcus with final identification and sensitivities pending of the gram-negative pathogen. Patient does have a complicated urological history with previous stent placements and percutaneous nephrostomy placements mainly done at [facility]. Patient also has a suprapubic Henry catheter. [facility] Medical History (Updated 11/10/21 @ 18:[address] 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 Kidney calculus Morbid obesity VITA (obstructive sleep apnea) VITA (obstructive sleep apnea) Pressure ulcer of coccygeal region, stage 3 Pyonephrosis Recurrent UTI Renal calculus, bilateral Severe sepsis Suprapubic catheter Ulcer of abdomen wall with fat layer exposed Ulcer of left groin with fat layer exposed UTI (urinary tract infection) due to urinary indwelling catheter V tach Home Medications venlafaxine 150 mg PO DAILY 07/02/19 [History Last Taken 09/06/21] acetaminophen 1,000 mg PO Q6H PRN PRN tablet 02/18/21 [Rx Last Taken 09/06/21] miconazole nitrate 1 applic TOPICAL BID 04/16/21 [History Last Taken 09/06/21] omeprazole 20 mg PO DAILY 04/16/21 [History Last Taken 09/06/21] fosfomycin tromethamine 1 packet PO MO 07/02/21 [History Last Taken 09/06/21] methadone 2.5 mg PO BID 07/02/21 [History Last Taken 09/06/21] metoprolol tartrate 25 mg PO BID 07/02/21 [History Last Taken 09/06/21] ferrous sulfate 325 mg PO BID 09/07/21 [History Last Taken 09/06/21] multivitamin with minerals [Multiple Vitamin-Minerals] 1 tab PO DAILY 09/07/21 [History Last Taken 09/06/21] oxybutynin chloride 10 mg PO DAILY 09/07/21 [History Last Taken 09/06/21] bisacodyl 10 mg [place] DAILY PRN 11/08/21 [History Last Taken Unknown] fluticasone propionate [Flonase] 1 spray INTRANASAL DAILY 11/08/21 [History Last Taken Unknown] polyethylene glycol 3350 [Miralax] 17 g PO DAILY 11/08/21 [History Last Taken Unknown] Allergy/AdvReac Type Severity Reaction Status Date / Time adhesive tape Allergy blisters Verified 07/02/21 09:19 Influenza Virus Vaccines Allergy shortness Verified 07/02/21 09:19 of breath/severe wheezing iron Allergy from IV Verified 07/02/21 09:19 form chest pressure and heart palpitations Sulfa (Sulfonamide Allergy Shortness Verified 07/02/21 09:19 Antibiotics) of breath meloxicam [From Mobic] AdvReac gi upset Verified 07/02/21 09:19 seasonal allergies Allergy Other Uncoded 07/02/21 09:19 Surgical History H/O nephrostomy H/O: hysterectomy History of cholecystectomy History of tonsillectomy Hx of appendectomy Social History Smoking Status: Never smoker substance use type: does not use Physical Exam Narrative Patient is alert and responsive does not appear toxic. Heart exam S1-S2 lungs are clear abdomen is obese but soft. Suprapubic catheter is in place. Left flank area looks benign at this time Lab / Micro Data Result Diagrams: 11/10/21 11:10 11/10/21 11:10 Labs: Laboratory Results - last 24 hr 11/10/21 11:10: WBC 6.7, RBC 3.48 L, Hgb 10.3 L, Hct 32.5 L, MCV 93.4 D, MCH 29.6, MCHC 31.7 L D, RDW Std Deviation 49.4 H, RDW Coeff of Jessi 14.6, Plt Count 428, MPV 8.6, Immature Gran % (Auto) 1.800 H, Neut % (Auto) 81.2 H, Lymph % (Auto) 6.7 L, [place] % (Auto) 5.8, Eos % (Auto) 3.6, Baso % (Auto) 0.9, Absolute Neuts (auto) 5.4, Absolute Lymphs (auto) 0.45 L, Nucleated RBC % 0, Differential Comment , Platelet Estimate ADEQUATE, RBC Morphology N CHROM, Anisocytosis 1+ 11/10/21 11:10: Sodium 135 L, Potassium 3.6, Chloride 106, Carbon Dioxide 24.0, Anion Gap 5, BUN 11, Creatinine 0.78, Estim Creat Clear Calc 47.27, Est GFR (MDRD) Af Amer 93, Est GFR (MDRD) Non-Af 77, BUN/Creatinine Ratio 14.2, Glucose 88, Calcium 8.1 L Micro: Microbiology 11/09/21 14:20 Wound Abcess - No Site/Description Given Gram Stain - Final 11/09/21 14:20 Wound Abcess - No Site/Description Given Wound Culture - Preliminary Gram negative odin GPC Poss Enterococcus sp 11/08/21 15:50 Blood Culture (Wb) - Left Wrist Blood Culture - Preliminary No growth in 48 hours. 11/08/21 16:21 Urine Catheter - Catheter Urine Culture - Final Klebsiella pneumoniae sp pneum 11/08/21 16:30 Blood Culture (Wb) - Anticubital Right Bacteria Detection (PCR) - Final Staphylococcus epidermidis Staphylococcus lugdunensis 11/08/21 16:30 Blood Culture (Wb) - Anticubital Right Blood Culture - Final Staphylococcus epidermidis Staphylococcus lugdunensis
--- NOTE | 2021-11-11 13:10 | CASEMGMT ---
Social Work Per Dr. Roland tentative plan is for patient to be medically cleared for tomorrow. Telephone call to [facility], Rosa Maria. This social work case manager updated Rosa Maria on above information. Rosa Maria confirms that patient is able to return to [facility] tomorrow with plan to attempt to skilled patient. Rosa Maria request for updated clinicals to be faxed, updated clinicals faxed. Transfer to extended care form initiated. Proposed discharge date: 11/12/2021 PLAN: Return to [facility] [place] [facility]. Neeru VIERA, TONYAS
[2021-11-11] MEDS: Ferrous Sulfate 325 MG Tablet PO ×2 (14:14→17:32)
[2021-11-11] MEDS: Juven (unflavored) Packet 1 PACKET PO (17:32)
--- NOTE | 2021-11-11 20:01 | PN.HOSP_ITS ---
Subjective Subjective Patient was seen and examined today, I talked briefly with infectious diseases about her care, they felt that she could go back to her extended care facility once the organism was identified from her abscess fluid and felt that she did not need IV antibiotic administration at the [facility]. I went over this wit h the patient today. Objective Data Objective Data Vital Signs: Vital Signs Temp Pulse Resp BP Pulse Ox 97.8 F 95 16 147/88 H 100 11/11/21 18:25 11/11/21 18:25 11/11/21 18:25 11/11/21 18:25 11/11/21 18:25 Oxygen Flow Rate (L/min) [6] 3 Oxygen Flow Rate (L/min) [5] 3 Oxygen Flow Rate (L/min) [4] 3 Oxygen Flow Rate (L/min) [3] 3 Oxygen Flow Rate (L/min) [2] 3 Oxygen Flow Rate (L/min) [1 ( 3 Initial Baseline)] Oxygen Flow Rate (L/min) 98 Oxygen Delivery Method [7] Room Air Oxygen Delivery Method [6] Room Air Oxygen Delivery Method [4] Nasal Cannula Oxygen Delivery Method [3] Room Air Oxygen Delivery Method [2] Nasal Cannula Oxygen Delivery Method [1 ( Nasal Cannula Initial Baseline)] Oxygen Delivery Method Room Air Weight: 97.7 kg Body Mass Index (BMI) 33.7 Intake & Output: Intake and Output for Last 24 Hours 11/09/21 11/10/21 11/11/21 23:59 23:59 23:59 Intake Total 3125.0 / 3125.0 3965.0 / 3965.0 4290 / 4290 Output Total 675 / 675 1125 / 1125 1225 / 1225 Balance 2450.0 / 2450.0 2840.0 / 2840.0 3065 / 3065 Lab / Micro Data Result Diagrams: 11/10/21 11:10 11/10/21 11:10 Micro: Microbiology 11/09/21 14:20 Wound Abcess - No Site/Description Given Gram Stain - Final 11/09/21 14:20 Wound Abcess - No Site/Description Given Wound Culture - Preliminary Gram negative odin GPC Poss Enterococcus sp 11/08/21 15:50 Blood Culture (Wb) - Left Wrist Blood Culture - Preliminary No growth in 48 hours. 11/08/21 16:21 Urine Catheter - Catheter Urine Culture - Final Klebsiella pneumoniae sp pneum 11/08/21 16:30 Blood Culture (Wb) - Anticubital Right Bacteria Detection (PCR) - Final Staphylococcus epidermidis Staphylococcus lugdunensis 11/08/21 16:30 Blood Culture (Wb) - Anticubital Right Blood Culture - Final Staphylococcus epidermidis Staphylococcus lugdunensis Physical Exam Const alert, oriented x3 and no apparent distress Constitutional Narrative: Patient appears older than her stated age General Appearance: cooperative, well kempt and well developed Orientation / Consciousness: awake, oriented to person, oriented to place and oriented to time HEENT normocephalic, head/scalp atraumatic and moist oral mucous membranes Head and Scalp: normocephalic Eyes PERRL, EOMs intact bilaterally and conjunctivae normal Neck nuchal rigidity, supple, no JVD, thyroid normal and no carotid bruits General: trachea midline Resp normal respiratory effort, no retractions, no use of accessory muscles and clear to auscultation bilaterally Auscultation: Negative for rales, rhonchi or wheezes Cardio regular rate, regular rhythm, no murmurs, no rub and no gallops GI normal to inspection, nondistended, normoactive bowel sounds, soft to palpation, non-tender and non-distended Extremity no clubbing, cyanosis or edema Skin Skin Narrative: There is a bandage covering an area over the patient's left flank region, this patient was not removed for examination of the patient's wound General Skin Exam: no breakdown Neuro oriented x3, CN's II-XII intact bilaterally, no focal motor deficits and no sensory deficits noted Sensorium / Orientation: awake and alert Speech: speech normal Psych thought process normal and affect normal Assessment & Plan Assessment/Plan (1) Nephrostomy tube displaced: (2) Perinephric abscess: PLAN: 1. Acute sepsis secondary to left perinephric abscess-awaiting final blood cultures on the patient, patient will remain on Zosyn for now, ID saw the patient today #2 Left perinephric abscess-there is growth of gram-negative bacteria at this time which is not identified, patient will remain on Zosyn #3 severe spinal stenosis-patient is currently in a [facility] facility full-time, she states she is not able to walk very far without severe weakness in her legs. PT and OT are participating in her care #4 chronic kidney disease stage IIIa-patient's labs will be monitored #5 essential hypertension-patient is on oral blood pressure medications at this time. Charges/Coding Visit Charges Inpatient E&M: 34443 Subs Hosp L2
--- NOTE | 2021-11-12 00:01 | PCS.PANDOC ---
PANDEMIC DOCUMENTATION INITIATED: Date: 06/28/2021 Time: 190
[2021-11-12 03:28] VITALS: BP 133/78; PULSE 72; RESP 18; TEMP 36.6; O2SAT 100
[2021-11-12 03:29] VITALS: O2SAT 100
--- NOTE | 2021-11-12 07:41 | PCM.TXEXTCAR ---
Diet 11/09/21 14:42 Diet: Consistent Carb - Calorie Controlled Food consistency:: Regular Liquid Consistency:: Regular/Thin Is pt able to select menu?: Yes How many daily calories?: 2000 calorie Wound(s) coccyx: Wound Type: Pressure Injury Dressing Change: Dry Sterile Dressing left flank: Wound Type: Abscess Dressing Change: Dry Sterile Dressing Problem/Diagnosis (1) Nephrostomy tube displaced: Status: Inactive (2) Perinephric abscess: Status: Acute Comment: Proteus, enterococcus faecalis Allergies/Procedures Done in Hospital Allergies adhesive tape Allergy (Verified 07/02/21 09:19) blisters Influenza Virus Vaccines Allergy (Verified 07/02/21 09:19) shortness of breath/severe wheezing iron Allergy (Verified 07/02/21 09:19) from IV form chest pressure and heart palpitations Sulfa (Sulfonamide Antibiotics) Allergy (Verified 07/02/21 09:19) Shortness of breath bactrim does not work for her-per pcp paperwork meloxicam [From Mobic] Adverse Reaction (Verified 07/02/21 09:19) gi upset seasonal allergies Allergy (Uncoded 07/02/21 09:19) Other Type of Care/Length of Stay Estimated LOS: More Than 30 Days Type of Care Needed: Skilled Rehab Potential: Fair Prognosis: Fair Additional Orders/Day of Discharge Day of Discharge: 11/12/21 Dietary and Speech Recommendations Dietitian Recommendations/Changes: Will adjust diet to 2000 calorie/carbohydrate-controlled. Will add John BID w/ medpass for wound healing. Discharge Plan Admission Admit Date/Time: 11/08/21 19:40 Primary Reason for Your Visit: perinephric abcess Attending Provider: Colby Roland Primary Care Provider: Colby Valenzuela Consulting Providers: Marshall Flores ; Rebecca Zavala Discharge Orders/Prescriptions Prescriptions: New nystatin [Nyamyc] 100,000 unit/gram Powder 1 applic topical BID Qty: 0 RF: 0 methadone 5 mg Tablet 2.5 mg PO BID 5 Days Qty: 5 RF: 0 amoxicillin-pot clavulanate [Augmentin] 875-125 mg tablet 1 tab PO BID Qty: 20 RF: 0 Continued venlafaxine 150 MG capsule 150 mg PO DAILY RF: 0 acetaminophen 500 MG tablet 1,000 mg PO Q6H PRN PRN (Reason: Pain Score 1-10) RF: 0 omeprazole 20 mg Capsule,Delayed Release(Dr/Ec) 20 mg PO DAILY RF: 0 fosfomycin tromethamine 3 gram Packet 1 packet PO MO RF: 0 metoprolol tartrate 25 mg Tablet 25 mg PO BID RF: 0 ferrous sulfate 325 mg (65 mg iron) Tablet 325 mg PO BID RF: 0 Multiple Vitamin-Minerals Tablet 1 tab PO DAILY RF: 0 polyethylene glycol 3350 [Miralax] 17 gram Powder In Packet 17 g PO DAILY RF: 0 bisacodyl 10 mg Suppository 10 mg [place] DAILY PRN (Reason: Constipation) RF: 0 fluticasone propionate 50 mcg/actuation [place],Suspension 1 spray INTRANASAL DAILY RF: 0 Discontinued miconazole nitrate 2 % Powder 1 applic TOPICAL BID RF: 0 methadone 5 mg Tablet 2.5 mg PO BID RF: 0 oxybutynin chloride 10 mg tablet extended release 24hr 10 mg PO DAILY RF: 0 Referrals / Follow Up: Colby Valenzuela DO [Primary Care Provider] - Disposition Disposition (needs filled in before D/C Order can be placed): Long Term Facility
--- NOTE | 2021-11-12 07:55 | DS.PCM_ITS ---
Providers Date of Admission: 11/08/21 Date of Discharge: 11/12/21 Primary Care Physician: Dr. Colby Valenzuela, Consultations 11/09/21 15:35 Consult: Infectious Disease Routine Consulting Provider: Marshall Flores Reason for Consult: left perinephric abcess EMERGENT Consult: No Notified: Yes Date Notified: 11/09/21 Time Notified: 15:36 Method of Notification: Verbal 11/10/21 11:23 Consult: Urology Routine Consulting Provider: Rebecca Zavala Reason for Consult: problems with s/p cath EMERGENT Consult: No Notified: Yes Date Notified: 11/10/21 Time Notified: 11:23 Method of Notification: Page Reason For Visit: PERINEPHRIC ABSCESS Diagnosis Discharge Diagnosis (1) Perinephric abscess: Status: Acute Code(s): N15.1 - Renal and perinephric abscess Plan: 1. Acute sepsis secondary to left perinephric abscess Proteus mirabilis and Enterococcus faecalis #2 Left perinephric abscess #3 severe spinal stenosis-chronic #4 chronic kidney disease stage IIIa #5 essential hypertension Medications at Discharge Home Medications venlafaxine 150 mg PO DAILY 07/02/19 acetaminophen 1,000 mg PO Q6H PRN PRN tablet 02/18/21 omeprazole 20 mg PO DAILY 04/16/21 fosfomycin tromethamine 1 packet PO MO 07/02/21 metoprolol tartrate 25 mg PO BID 07/02/21 Multiple Vitamin-Minerals 1 tab PO DAILY 09/07/21 ferrous sulfate 325 mg PO BID 09/07/21 bisacodyl 10 mg [place] DAILY PRN 11/08/21 fluticasone propionate 1 spray INTRANASAL DAILY 11/08/21 polyethylene glycol 3350 [Miralax] 17 g PO DAILY 11/08/21 amoxicillin-pot clavulanate [Augmentin] 1 tab PO BID #20 tab 11/12/21 methadone 2.5 mg PO BID 5 Days #5 tab 11/12/21 nystatin [Nyamyc] 1 applic TOPICAL BID #0 g 11/12/21 Hospital Course Operations None Procedures None Summary of Care Provided Minutes Spent on Discharge: 33 Hospital Course: This 76-year-old white female was seen in the emergency room at [facility] after being brought from an extended care facility at which she resides due to increased pain in her left flank area along with redness. Patient had had a nephrostomy tube located in that area that had been removed several weeks earlier, she had been treated for an infection in that area while in the shelter with a course of antibiotics. Imaging studies in the emergency room revealed a 7.3 cm left perinephric fluid collection felt to be an abscess, patient's white blood cell count was elevated at 17.1, patient's urinalysis showed +2 bacteria with 5200 white cells but the patient has an indwelling suprapubic catheter. Patient was admitted to [facility], she was scheduled to have the left perinephric abscess drained but in the meantime, the area where a former nephrostomy tube had been located broke open and drained a large amount of purulent material which was cultured. Cultures grew out Proteus mirabilis and Enterococcus. Patient's blood culture grew out staph epidermidis which was felt to be a contaminant, patient's urine culture was positive for Klebsiella pneumoniae which was felt to be colonization. Patient was seen in consultation by infectious diseases and had to also be seen by urology due to a nonfunctioning suprapubic catheter. On 11/12/2021, patient was seen and examined: On examination she appeared in good health and spirits, she does not appear to be in any distress. Vital signs as documented. Skin warm and dry and without overt rashes. Neck without JVD, thyroid appears normal, trachea is midline, neck is supple. Lungs clear, normal air movement was noted. Heart exam notable for regular rhythm, normal sounds and absence of murmurs, rubs or gallops. Abdomen unremarkable and without evidence of organomegaly, masses, or abdominal aortic enlargement, bowel sounds are present in all 4 quadrants, no abdominal tenderness was noted. Extremities nonedematous, no cyanosis was noted, no clubbing was noted. Neuro: Cranial nerves II through XII are grossly intact, no focal motor deficits were noted, sensation to light touch and pinprick is intact, motor exam 5/5 throughout. Psych: Patient is alert and oriented x3, she does not appear anxious or depressed, she does not appear agitated. On 11/12/2021, patient was felt to be stable for discharge back to her extended care facility in stable condition. Weight / BMI Weight Weight: 97.7 kg Body Mass Index (BMI) 33.7 ABG / Lab / Microbiology Data Result Diagrams: 11/10/21 11:10 11/10/21 11:10 Microbiology: Microbiology 11/09/21 14:20 Wound Abcess - No Site/Description Given Gram Stain - Final 11/09/21 14:20 Wound Abcess - No Site/Description Given Wound Culture - Final Proteus mirabilis Enterococcus faecalis 11/08/21 15:50 Blood Culture (Wb) - Left Wrist Blood Culture - Preliminary No growth in 48 hours. 11/08/21 16:21 Urine Catheter - Catheter Urine Culture - Final Klebsiella pneumoniae sp pneum 11/08/21 16:30 Blood Culture (Wb) - Anticubital Right Bacteria Detection (PCR) - Final Staphylococcus epidermidis Staphylococcus lugdunensis 11/08/21 16:30 Blood Culture (Wb) - Anticubital Right Blood Culture - Final Staphylococcus epidermidis Staphylococcus lugdunensis Meaningful Use Info Meaningful Use Diagnoses (Choose all that apply): None applicable Discharge Plan Admission Admit Date/Time: 11/08/21 19:40 Primary Reason for Your Visit: perinephric abcess Attending Provider: Colby Roland Primary Care Provider: Colby Valenzuela Consulting Providers: Marshall Flores ; Rebecca Zavala Discharge Orders/Prescriptions Prescriptions: New nystatin [Nyamyc] 100,000 unit/gram Powder 1 applic topical BID Qty: 0 RF: 0 methadone 5 mg Tablet 2.5 mg PO BID 5 Days Qty: 5 RF: 0 amoxicillin-pot clavulanate [Augmentin] 875-125 mg tablet 1 tab PO BID Qty: 20 RF: 0 Continued venlafaxine 150 MG capsule 150 mg PO DAILY RF: 0 acetaminophen 500 MG tablet 1,000 mg PO Q6H PRN PRN (Reason: Pain Score 1-10) RF: 0 omeprazole 20 mg Capsule,Delayed Release(Dr/Ec) 20 mg PO DAILY RF: 0 fosfomycin tromethamine 3 gram Packet 1 packet PO MO RF: 0 metoprolol tartrate 25 mg Tablet 25 mg PO BID RF: 0 ferrous sulfate 325 mg (65 mg iron) Tablet 325 mg PO BID RF: 0 Multiple Vitamin-Minerals Tablet 1 tab PO DAILY RF: 0 polyethylene glycol 3350 [Miralax] 17 gram Powder In Packet 17 g PO DAILY RF: 0 bisacodyl 10 mg Suppository 10 mg [place] DAILY PRN (Reason: Constipation) RF: 0 fluticasone propionate 50 mcg/actuation [place],Suspension 1 spray INTRANASAL DAILY RF: 0 Discontinued miconazole nitrate 2 % Powder 1 applic TOPICAL BID RF: 0 methadone 5 mg Tablet 2.5 mg PO BID RF: 0 oxybutynin chloride 10 mg tablet extended release 24hr 10 mg PO DAILY RF: 0 Referrals / Follow Up: Colby Valenzuela DO [Primary Care Provider] - Disposition Disposition (needs filled in before D/C Order can be placed): [facility] Charges/Coding Visit Charges Inpatient E&M: 63624 Disch Hosp
[2021-11-12 08:08] VITALS: BP 141/82; PULSE 88; RESP 16; TEMP 36.7; O2SAT 100
[2021-11-12] MEDS: Juven (unflavored) Packet 1 PACKET PO (09:43)
[2021-11-12] MEDS: Venlafaxine XR 150 MG Capsule PO (09:43)
[2021-11-12 09:44] VITALS: PULSE 80
[2021-11-12] MEDS: Pantoprazole Sodium 20 MG Tablet PO (09:44)
[2021-11-12] MEDS: Metoprolol Tartrate 25 MG Tablet PO (09:44)
[2021-11-12] MEDS: Multivitamins,Ther W-Minerals Tablet 1 TABLET PO (09:44)
[2021-11-12] MEDS: Enoxaparin 40 MG/0.4 ML Syringe SC (09:44)
[2021-11-12] MEDS: Fluticasone 0.05% 1 SPRAY NASAL.SRY NASAL (09:44)
[2021-11-12] MEDS: Acetaminophen 500 MG Tablet 1000 MG PO (09:44)
[2021-11-12] MEDS: Nystatin Powder 15gm Bottle 1 APPLIC TOPICAL (09:45)
--- NOTE | 2021-11-12 11:30 | PCM.PN.ID ---
Physical Exam Narrative Patient clinically stable. Had uneventful night. Microbiology data reviewed of the left flank drainage growing Proteus as well as Enterococcus with sensitivities reviewed. Doing well on Zosyn. No gastrointestinal distress. Overall hemodynamically stable. Lungs are clear heart exam S1-S2 abdomen is obese but soft ID ID: Route of nutrition/ use of supplements: [] Nutritional Intake: [] IV Site: [] Henry Catheter: [] Assessment & Plan Assessment/Plan (1) Perinephric abscess: PLAN: Based on the sensitivity data, okay to go home on amoxicillin 500 mg 3 times a day for 4 weeks. I did write the prescription.
[2021-11-12] MEDS: DiphenhydrAMINE 25 MG Capsule PO (12:51)
[2021-11-12] MEDS: Ferrous Sulfate 325 MG Tablet PO (12:51)
[2021-11-12 13:36] VITALS: BP 135/76; PULSE 77; RESP 16; TEMP 36.2; O2SAT 100
--- NOTE | 2021-11-12 13:51 | NURSING ---
Report called to Patsy, nurse at [facility].
== END 2021-11-12 14:49 | DRG 871 ==
LOC: ED 19:08 → MS3 20:15
PROVIDERS: Admitting Provider Family Medicine; Emergency Provider Emergency Medicine; PCP Family Medicine; Visit Provider Internal Medicine
DX: A41.9 Sepsis, unspecified organism (principal); N15.1 Renal and perinephric abscess; T83.198A Other mechanical complication of other urinary devices and implants, initial encounter; E11.22 Type 2 diabetes mellitus with diabetic chronic kidney disease; E66.01 Morbid (severe) obesity due to excess calories; N18.31 Chronic kidney disease, stage 3a; B96.4 Proteus (mirabilis) (morganii) as the cause of diseases classified elsewhere; B95.2 Enterococcus as the cause of diseases classified elsewhere; M48.00 Spinal stenosis, site unspecified; I12.9 Hypertensive chronic kidney disease with stage 1 through stage 4 chronic kidney disease, or unspecified chronic kidney disease; G47.33 Obstructive sleep apnea (adult) (pediatric); K59.00 Constipation, unspecified; K21.9 Gastro-esophageal reflux disease without esophagitis; N20.0 Calculus of kidney; F32.A Depression, unspecified; R53.81 Other malaise; Y84.6 Urinary catheterization as the cause of abnormal reaction of the patient, or of later complication, without mention of misadventure at the time of the procedure; Y73.2 Prosthetic and other implants, materials and accessory gastroenterology and urology devices associated with adverse incidents; Z68.33 Body mass index [BMI] 33.0-33.9, adult; Z99.3 Dependence on wheelchair; Z79.899 Other long term (current) drug therapy; Z87.440 Personal history of urinary (tract) infections
CPT/HCPCS: 36415; 74177; 75989; 80048; 80076; 81001; 83605; 85025; 85610; 87040; 87070; 87075; 87077; 87086; 87088; 87149; 87186; 87205; 87426; 87640; 96374; 99285; J7030; J7040; J7050; Q9967; A4216; J2405

== ENCOUNTER 2022-01-10 08:32 | Outpatient (CLI) | payer MEDICARE, OTHER, MEDICAID, SELFPAY ==
--- NOTE | 2022-01-10 08:35 | EKG12_ITS ---
Test Reason : AFIB Blood Pressure : / mmHG Vent. Rate : 068 BPM Atrial Rate : 068 BPM P-R Int : 166 ms QRS Dur : 062 ms QT Int : 410 ms P-R-T Axes : 000 109 067 degrees QTc Int : 435 ms Normal sinus rhythm Low voltage QRS Septal infarct , age undetermined Abnormal ECG Confirmed by CACHORRO THOMPSON, JUAN ([id number]), managing editor BROOKS WIGGINS ([id number]) on 01/11/2022 11:17:51 AM Referred By: Skylar Crowley Confirmed By:JUAN IVORY MD
== END 2022-01-10 23:59 | disposition home or self-care (01) ==
PROVIDERS: PCP Family Medicine; Referring Provider Nurse Practitioner Acute Care; Visit Provider Nurse Practitioner Acute Care
DX: I48.91 Unspecified atrial fibrillation (principal)
CPT/HCPCS: 93005

== ENCOUNTER 2022-02-14 11:16 | Emergency (ER) | payer MEDICARE, OTHER, MEDICAID, SELFPAY ==
[2022-02-14 11:17] VITALS: BP 91/54; PULSE 75; RESP 16; TEMP 37.2; O2SAT 100; BMI 37.2
--- NOTE | 2022-02-14 11:57 | EKG12_ITS ---
Test Reason : Blood Pressure : / mmHG Vent. Rate : 075 BPM Atrial Rate : 075 BPM P-R Int : 130 ms QRS Dur : 076 ms QT Int : 410 ms P-R-T Axes : 000 063 046 degrees QTc Int : 457 ms Normal sinus rhythm Low voltage QRS poor R wave Progression Confirmed by SEBASTIÁN THOMPSON, KENNEDY ([id number]), research editor JOSR VELIZ ([id number]) on 02/16/2022 11:33:53 AM Referred By: FELIPE Confirmed By:KENNEDY LOWERY MD
--- NOTE | 2022-02-14 12:18 | EX.ED.DYSGE1 ---
HPI History of Present Illness Chief Complaint: Wound Check Detail of Chief Complaint: Abscess left flank area Informant: patient and family Onset/Context/Timing Onset: Days (First noted this past February 11) Context: Sudden Onset Timing: Continuous Quality: Pain and warmth Location: Left flank Current Severity: Mild Maximum Severity: Moderate Worsened by: Nothing Relieved by: Nothing Associated Symptoms Associated Symptoms: Pain, subjective fever with a temperature 99 and chills Narrative Narrative: Patient is a 76-year-old woman with multiple medical problems who has had multiple infections who presents because of pain, redness left flank area. Seen by visiting physician who has concerned she has an abscess. She denies nausea, vomiting or diarrhea. She denies dysuria, frequency, urgency or hematuria. She denies shortness of breath or difficulty breathing. She is essentially bedridden. She reports allergy to sulfa. 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 Kidney calculus Morbid obesity Nephrostomy tube displaced VITA (obstructive sleep apnea) VITA (obstructive sleep apnea) Pressure ulcer of coccygeal region, stage 3 Pyonephrosis Recurrent UTI Renal calculus, bilateral Severe sepsis Suprapubic catheter Ulcer of abdomen wall with fat layer exposed Ulcer of left groin with fat layer exposed UTI (urinary tract infection) due to urinary indwelling catheter V tach Home Medications venlafaxine 150 mg PO DAILY 07/02/19 [History Last Taken 09/06/21] acetaminophen 1,000 mg PO Q6H PRN PRN tablet 02/18/21 [Rx Last Taken 09/06/21] omeprazole 20 mg PO DAILY 04/16/21 [History Last Taken 09/06/21] fosfomycin tromethamine 1 packet PO MO 07/02/21 [History Last Taken 09/06/21] metoprolol tartrate 25 mg PO BID 07/02/21 [History Last Taken 09/06/21] Multiple Vitamin-Minerals 1 tab PO DAILY 09/07/21 [History Last Taken 09/06/21] ferrous sulfate 325 mg PO BID 09/07/21 [History Last Taken 09/06/21] bisacodyl 10 mg [place] DAILY PRN 11/08/21 [History Last Taken Unknown] fluticasone propionate 1 spray INTRANASAL DAILY 11/08/21 [History Last Taken Unknown] polyethylene glycol 3350 [Miralax] 17 g PO DAILY 11/08/21 [History Last Taken Unknown] amoxicillin-pot clavulanate [Augmentin] 1 tab PO BID #20 tab 11/12/21 [Rx Last Taken Unknown] methadone 2.5 mg PO BID 5 Days #5 tab 11/12/21 [Rx Last Taken Unknown] nystatin [Nyamyc] 1 applic TOPICAL BID #0 g 11/12/21 [Rx Last Taken Unknown] doxycycline monohydrate 100 mg PO BID #10 capsule 02/14/22 [Rx Last Taken Unknown] Allergy/AdvReac Type Severity Reaction Status Date / Time adhesive tape Allergy blisters Verified 02/14/22 11:17 Influenza Virus Vaccines Allergy shortness Verified 02/14/22 11:17 of breath/severe wheezing iron Allergy from IV Verified 02/14/22 11:17 form chest pressure and heart palpitations Sulfa (Sulfonamide Allergy Shortness Verified 02/14/22 11:17 Antibiotics) of breath meloxicam [From Mobic] AdvReac gi upset Verified 02/14/22 11:17 seasonal allergies Allergy Other Uncoded 02/14/22 11:17 Surgical History H/O nephrostomy H/O: hysterectomy History of cholecystectomy History of tonsillectomy Hx of appendectomy Social History (Updated 02/14/22 @ 12:[address] Wagner Tineo MD) household members: none Smoking Status: Never smoker substance use type: does not use ROS ROS ED Constitutional Constitutional ED: Reports fever(s) and subjective; Denies sweats or weight loss Eyes Eyes: Denies blurry vision, change in vision or diplopia ENT ENT ED: Denies ear pain, rhinorrhea or sore throat Cardiovascular Cardiovascular: Denies chest pain, orthopnea, palpitations, paroxysmal nocturnal dyspnea or racing heartbeat Respiratory/Chest Respiratory/Chest: Denies cough, dyspnea, dyspnea on exertion, orthopnea, paroxysmal nocturnal dyspnea or sputum Gastrointestinal Gastrointestinal: Denies abdominal pain, diarrhea, nausea or vomiting Genitourinary Genitourinary ED: Denies dysuria, hematuria or urinary frequency Musculoskeletal Musculoskeletal: Reports back pain; Denies arthralgias, myalgias or neck pain Integumentary Reports abscess and rash Neurologic Neurologic: Reports weakness; Denies headache(s) or paresthesias Psychiatric Psychiatric: Reports depression Endocrine Endocrinology: Denies polydipsia, polyphagia or polyuria Allergic/Immunologic Allergic/Immunologic ED: Denies mouth swelling or urticaria EXAM Physical Exam Const Vital Signs: 02/14/22 11:17 02/14/22 12:23 02/14/22 12:43 Temperature 99 F 98.6 F Temperature Source Oral Oral Pulse Rate 75 72 Respiratory Rate 16 18 Blood Pressure 91/54 L 143/61 H Blood Pressure Mean 66 88 Pulse Ox 100 98 Oxygen Delivery Method Room Air Room Air Room Air Positive well nourished, well developed and obese General Appearance ED: well developed and NAD; Negative for cyanotic or diaphoretic Nutritional Appearance: obese HEENT Reports TM's clear and moist mucous membranes HEENT Narrative: Nares patent. Ears normal. Negative for trauma or tenderness Tympanic Membrane ED: Yes TM's clear Eyes PERRL and EOMs intact bilaterally General Eye ED: Negative for pale conjunctiva or scleral icterus Neck no lymphadenopathy, supple and no JVD Chest Wall inspection of chest normal and palpation of chest normal Resp normal respiratory effort and clear to auscultation bilaterally Cardio regular rate, regular rhythm, S1 normal heart sound, S2 normal heart sound and no murmurs GI normal to inspection, nondistended, normoactive bowel sounds and non-tender Palpation: soft Back/Spine Negative for no CVA tenderness Cervical Spine: Negative for cervical spine tenderness Thoracic Spine / Upper Back: Negative for thoracic spinal tenderness or paraspinal muscle tenderness Lumbar Spine / Lower Back: Negative for lumbar spinal tenderness Extremity Negative for normal to inspection General Extremety ED: Yes edema; Negative for tenderness General Extremity: edema Neuro oriented x3 and CN's II-XII intact bilaterally Sensorium / Orientation: alert Psych Mood & Affect: depressed Skin No no rashes or lesions noted Skin Narrative: There is a small wound with no drainage. There appears to be fluctuance. The skin is indurated but only slightly erythematous. There may be warmth in the area. MDM MDM MDM Narrative Medical decision making narrative: Concerned there is an abscess there and not wanting to perform a formal I&D unless necessary area was cleansed and needle aspirate was undertaken. There was 10 cc of green thick purulent material that was easily aspirated. Sepsis work-up was initiated. Patient will require formal I&D. We will need to determine if she is on an anticoagulant. She is on no anticoagulant. She apparently is on Augmentin. Because of concern that this may represent significant faction culture was obtained. Patient has no sirs criteria. Lactate is normal. She can be managed as an outpatient. She was discharged to return to the [facility] appropriate home-going instructions. Lab Data Attestation: I reviewed the patient's lab results. Lab results narrative: Hemoglobin is 8.7. Patient's hemoglobin varies between 8 and 10.5. Labs: Laboratory Results - last 24 hr 02/14/22 02/14/22 02/14/22 12:25 12:25 12:25 WBC 11.5 H RBC 3.27 L Hgb 8.7 L Hct 28.2 L MCV 86.2 MCH 26.6 L MCHC 30.9 L RDW Std Deviation 46.4 H RDW Coeff of Jessi 14.7 H Plt Count 410 MPV 9.4 Immature Gran % (Auto) 1.500 H Neut % (Auto) 77.9 H Lymph % (Auto) 11.2 L [place] % (Auto) 7.3 Eos % (Auto) 1.7 Baso % (Auto) 0.4 Absolute Neuts (auto) 9.0 H Absolute Lymphs (auto) 1.29 Nucleated RBC % 0 PT 15.0 H INR 1.2 APTT 37.1 H Sodium 135 L Potassium 3.9 Chloride 100 Carbon Dioxide 29.0 Anion Gap 6 BUN 28 H Creatinine 1.10 H Estim Creat Clear Calc 41.37 Est GFR (MDRD) Af Amer 62 Est GFR (MDRD) Non-Af 51 L BUN/Creatinine Ratio 25.5 H Glucose 105 Lactic Acid Calcium 8.6 Total Bilirubin 0.20 AST 7 L ALT 9 L Alkaline Phosphatase 110 Total Protein 7.4 Albumin 1.7 L Globulin 5.7 H Albumin/Globulin Ratio 0.3 L Urine Color Urine Clarity Urine pH Ur Specific [place] Urine Protein Urine Glucose (UA) Urine Ketones Urine Occult Blood Urine Nitrite Urine Bilirubin Urine Urobilinogen Ur Leukocyte Esterase Urine RBC Urine WBC Ur Squamous Epith Cells Urine Bacteria Urine Mucus 02/14/22 02/14/22 12:25 13:10 WBC RBC Hgb Hct MCV MCH MCHC RDW Std Deviation RDW Coeff of Jessi Plt Count MPV Immature Gran % (Auto) Neut % (Auto) Lymph % (Auto) [place] % (Auto) Eos % (Auto) Baso % (Auto) Absolute Neuts (auto) Absolute Lymphs (auto) Nucleated RBC % PT INR APTT Sodium Potassium Chloride Carbon Dioxide Anion Gap BUN Creatinine Estim Creat Clear Calc Est GFR (MDRD) Af Amer Est GFR (MDRD) Non-Af BUN/Creatinine Ratio Glucose Lactic Acid 1.3 Calcium Total Bilirubin AST ALT Alkaline Phosphatase Total Protein Albumin Globulin Albumin/Globulin Ratio Urine Color Yellow Urine Clarity Cloudy Urine pH 8.0 Ur Specific [place] 1.010 Urine Protein 100 H Urine Glucose (UA) Normal Urine Ketones Negative Urine Occult Blood 150 H Urine Nitrite Positive H Urine Bilirubin Negative Urine Urobilinogen Normal Ur Leukocyte Esterase 500 H Urine RBC 5-10 SEEN Urine WBC 25-50 SEEN Ur Squamous Epith Cells 0-5 SEEN Urine Bacteria 3+ Urine Mucus 0 SEEN Procedures Other Procedures Procedure(s): She was consented for subcutaneous abscess left flank. Patient given opportunity ask questions. None were asked. Patient was prepped draped sterile manner. The area was Nest[employer] by local filtration field block. An incision was made using a 10 blade. A 3 cm incision was made. There was a large abscess cavity that measured 4 x 8 cm depth and diameter respectively. There was greater than 4 ounces of thick green purulent material. Loculations undertaken. Cavity was irrigated. Wick was placed using 1/2 inch iodoform gauze. Patient tolerated the procedure. She had mild discomfort. Discharge Plan Triage Chief Complaint: Wound Check ED Provider: Wagner Tineo Dx/Rx/DC Orders Clinical Impression: Cutaneous abscess of back excluding buttocks Instructions: ED Abscess Incision And Drainage Prescriptions: New doxycycline monohydrate 100 MG capsule 100 mg PO BID Qty: 10 RF: 0 No Action venlafaxine 150 MG capsule 150 mg PO DAILY RF: 0 acetaminophen 500 MG tablet 1,000 mg PO Q6H PRN PRN (Reason: Pain Score 1-10) RF: 0 omeprazole 20 mg Capsule,Delayed Release(Dr/Ec) 20 mg PO DAILY RF: 0 fosfomycin tromethamine 3 gram Packet 1 packet PO MO RF: 0 metoprolol tartrate 25 mg Tablet 25 mg PO BID RF: 0 ferrous sulfate 325 mg (65 mg iron) Tablet 325 mg PO BID RF: 0 Multiple Vitamin-Minerals Tablet 1 tab PO DAILY RF: 0 polyethylene glycol 3350 [Miralax] 17 gram Powder In Packet 17 g PO DAILY RF: 0 bisacodyl 10 mg Suppository 10 mg [place] DAILY PRN (Reason: Constipation) RF: 0 fluticasone propionate 50 mcg/actuation [place],Suspension 1 spray INTRANASAL DAILY RF: 0 nystatin [Nyamyc] 100,000 unit/gram Powder 1 applic topical BID Qty: 0 RF: 0 methadone 5 mg Tablet 2.5 mg PO BID 5 Days Qty: 5 RF: 0 amoxicillin-pot clavulanate [Augmentin] 875-125 mg tablet 1 tab PO BID Qty: 20 RF: 0 Primary Care Provider: Colby Valenzuela Referrals: Colby Valenzuela DO [Primary Care Provider] - 2 Days for wound check Activity Restrictions/Additional Instructions: 1. Take antibiotics till gone 2. Wick to be removed in 2 days Disposition Disposition: Custodial Facility
[2022-02-14] MEDS: 0.9% Normal Saline 1,000 ML 250 ML IV (12:36)
[2022-02-14 12:39] LABS: Absolute Lymphocyte Count 1.29 X10^3/uL (0.83-4.51); Basophil# 0.05 X10^3/uL; Basophil% 0.4 % (0-1); Eosinophil# 0.19 X10^3/uL; Eosinophils% 1.7 % (0-5); Hematocrit 28.2 % (37-47); Hemoglobin 8.7 g/dL (12.0-15.0); Lymphocyte # 1.29 X10^3/ul (0.83-4.51); Lymphocyte % 11.2 % (19-41); Mean Corp Hgb Conc 30.9 g/dL (32-36); Mean Corpuscular Hgb 26.6 pg (27.0-32.0); Mean Corpuscular Volume 86.2 fL (81-99); Mean Platelet Vol. 9.4 fl (6.2-12.0); Monocyte# 0.84 X10^3/uL; Monocyte% 7.3 % (0-10); NRBC Flagged by Analyzer 0 % (0-5); Neutrophil # 8.96 X10^3/uL (2.7-7.7); Neutrophil % 77.9 % (47-70); Platelet Count 410 K/mm3 (150-450); RBC Distribution Width CV 14.7 % (11.6-14.6); RBC Distribution Width SD 46.4 fl (35.1-43.9); Red Blood Count 3.27 M/mm3 (4.2-5.4); White Blood Count 11.5 K/mm3 (4.4-11.0)
[2022-02-14 12:43] VITALS: BP 143/61; PULSE 72; RESP 18; TEMP 37; O2SAT 98
[2022-02-14 12:46] LABS: International Normalized Ratio 1.2
[2022-02-14 12:47] LABS: Partial Thromboplast Time 37.1 Seconds (24.1-36.2)
[2022-02-14 12:53] LABS: ALB/GLOB Ratio 0.3 RATIO (0.9-2.4); AST(SGOT) 7 U/L (15-37); Alanine Aminotransfer ALT/SGPT 9 U/L (13-56); Albumin, Serum 1.7 g/dL (3.2-5.0); Alkaline Phosphatase 110 U/L (45-117); Anion Gap 6 (5-15); BUN 28 mg/dL (7-18); BUN/Creat Ratio 25.5 RATIO (10-20); Calcium,Total 8.6 mg/dL (8.5-10.1); Chloride 100 mmol/L (98-107); EST Glomerular Filtration Rate 51 mL/min (>60); Est Glom Filt Rate - Afr Amer 62 mL/min (>60); Estimated Creatinine Clearance 41.37 ml/min; Globulin 5.7 g/dL (2.2-4.2); Glucose 105 mg/dL (74-106); Potassium 3.9 mmol/L (3.5-5.1); Protein, Total 7.4 g/dL (6.4-8.2); Sodium Level 135 mmol/L (136-145)
[2022-02-14 13:09] LABS: Lactic Acid 1.3 mmol/L (0.4-1.9)
[2022-02-14 13:16] LABS: Mucous, Urine 0 SEEN /hpf (<or=2+)
[2022-02-14 13:17] LABS: Color, Urine Yellow (Yellow); Glucose, Dipstick Normal (Normal); Ketone-Dipstick Negative (Negative); Leukocyte Esterase-Dipstick 500 /ul (Negative); Nitrite-Dipstick Positive (Negative); Occult Blood-Urine 150 /ul (Negative); Protein-Dipstick 100 mg/dl (Negative); Urine Bilirubin Dipstick Negative (Negative); Urine Clarity Cloudy (Clear); Urine Urobilinogen Normal (Normal)
[2022-02-14 13:26] LABS: Bacteria 3+ /hpf (None Seen); Red Blood Cells-Urine 5-10 SEEN /hpf (0-5); Squamous Epithelial Cells - UA 0-5 SEEN /hpf (5-10); White Blood Cells 25-50 SEEN /hpf (0-5)
[2022-02-14] MEDS: Lidocaine 1% (20 ml mdv) 20 ML Vial INFILT (14:23)
[2022-02-14 14:24] VITALS: BP 120/65; PULSE 81; RESP 18; TEMP 37; O2SAT 96
== END 2022-02-14 17:19 | disposition skilled nursing facility (03) ==
PROVIDERS: Emergency Provider Emergency Medicine; PCP Family Medicine; Visit Provider Emergency Medicine
DX: L02.212 Cutaneous abscess of back [any part, except buttock and flank] (principal); I11.0 Hypertensive heart disease with heart failure; I50.9 Heart failure, unspecified; E66.01 Morbid (severe) obesity due to excess calories; E11.9 Type 2 diabetes mellitus without complications; E78.5 Hyperlipidemia, unspecified; K21.9 Gastro-esophageal reflux disease without esophagitis; Z79.899 Other long term (current) drug therapy
CPT/HCPCS: 10061; 10060; 80053; 81001; 83605; 85025; 85610; 85730; 87040; 87070; 87075; 87077; 87186; 87205; 93005; 96365; 96367; 99285; J7030; J7040; J7050; A4216

== ENCOUNTER 2022-02-17 17:14 | Emergency (ER) | payer MEDICARE, OTHER, MEDICAID, SELFPAY ==
[2022-02-17 17:16] VITALS: BP 124/47; PULSE 70; RESP 18; TEMP 36.5; O2SAT 94; BMI 37.9
[2022-02-17 17:20] VITALS: BP 124/47; PULSE 76; RESP 18; TEMP 36.5; O2SAT 97
--- NOTE | 2022-02-17 17:28 | EX.ED.DYSGE1 ---
HPI History of Present Illness Chief Complaint: Abscess Detail of Chief Complaint: Reaccumulation of abscess Informant: patient Onset/Context/Timing Onset: Days Context: Sudden Onset Timing: Continuous Quality: Swelling near incision site Location: Left flank Current Severity: Mild Maximum Severity: Moderate Worsened by: Lying on her back Relieved by: Nothing Associated Symptoms Associated Symptoms: Pain Narrative Narrative: Patient is a 76-year-old woman who presents from nursing facility. She was seen on February 13. She had a subcutaneous abscess that was incised and drained. There was surrounding cellulitis. She was discharged with antibiotics. She states they are uncertain whether the packing came out when the dressing was changed. She has had no fever, chills night sweats. She does report pain. She has no other complaints. 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 Kidney calculus Morbid obesity Nephrostomy tube displaced VITA (obstructive sleep apnea) VITA (obstructive sleep apnea) Pressure ulcer of coccygeal region, stage 3 Pyonephrosis Recurrent UTI Renal calculus, bilateral Severe sepsis Suprapubic catheter Ulcer of abdomen wall with fat layer exposed Ulcer of left groin with fat layer exposed UTI (urinary tract infection) due to urinary indwelling catheter V tach Home Medications venlafaxine 150 mg PO DAILY 07/02/19 [History Last Taken 09/06/21] acetaminophen 1,000 mg PO Q6H PRN PRN tablet 02/18/21 [Rx Last Taken 09/06/21] omeprazole 20 mg PO DAILY 04/16/21 [History Last Taken 09/06/21] fosfomycin tromethamine 1 packet PO MO 07/02/21 [History Last Taken 09/06/21] metoprolol tartrate 25 mg PO BID 07/02/21 [History Last Taken 09/06/21] Multiple Vitamin-Minerals 1 tab PO DAILY 09/07/21 [History Last Taken 09/06/21] ferrous sulfate 325 mg PO BID 09/07/21 [History Last Taken 09/06/21] bisacodyl 10 mg [place] DAILY PRN 11/08/21 [History Last Taken Unknown] fluticasone propionate 1 spray INTRANASAL DAILY 11/08/21 [History Last Taken Unknown] polyethylene glycol 3350 [Miralax] 17 g PO DAILY 11/08/21 [History Last Taken Unknown] amoxicillin-pot clavulanate [Augmentin] 1 tab PO BID #20 tab 11/12/21 [Rx Last Taken Unknown] methadone 2.5 mg PO BID 5 Days #5 tab 11/12/21 [Rx Last Taken Unknown] nystatin [Nyamyc] 1 applic TOPICAL BID #0 g 11/12/21 [Rx Last Taken Unknown] doxycycline monohydrate 100 mg PO BID #10 capsule 02/14/22 [Rx Last Taken Unknown] Allergy/AdvReac Type Severity Reaction Status Date / Time adhesive tape Allergy blisters Verified 02/17/22 17:20 Influenza Virus Vaccines Allergy shortness Verified 02/17/22 17:20 of breath/severe wheezing iron Allergy from IV Verified 02/17/22 17:20 form chest pressure and heart palpitations Sulfa (Sulfonamide Allergy Shortness Verified 02/17/22 17:20 Antibiotics) of breath meloxicam [From Mobic] AdvReac gi upset Verified 02/17/22 17:20 seasonal allergies Allergy Other Uncoded 02/17/22 17:20 Surgical History H/O nephrostomy H/O: hysterectomy History of cholecystectomy History of tonsillectomy Hx of appendectomy Social History household members: none Smoking Status: Never smoker substance use type: does not use ROS ROS ED Constitutional Constitutional ED: Denies chills, fever(s), subjective or sweats Eyes Eyes: Denies blurry vision, change in vision or diplopia Cardiovascular Cardiovascular: Denies chest pain or palpitations Respiratory/Chest Respiratory/Chest: Denies dyspnea Musculoskeletal Musculoskeletal: Reports back pain; Denies arthralgias, myalgias or neck pain Integumentary Reports abscess Endocrine Endocrinology: Denies polydipsia, polyphagia or polyuria EXAM Physical Exam Const Vital Signs: 02/17/22 17:16 02/17/22 17:20 Temperature 97.7 F L 97.7 F L Temperature Source Temporal Temporal Pulse Rate 70 76 Respiratory Rate 18 18 Blood Pressure 124/47 H 124/47 H Blood Pressure Mean 72 72 Pulse Ox 94 97 Oxygen Delivery Method Room Air Room Air Positive well nourished, well developed and obese General Appearance ED: well developed and NAD; Negative for cyanotic, diaphoretic or pallor Nutritional Appearance: obese HEENT HEENT Narrative: Nares patent. Ears normal. Mucosa moist. Negative for trauma Eyes PERRL and EOMs intact bilaterally General Eye ED: Negative for pale conjunctiva or scleral icterus Neck no lymphadenopathy, supple and no JVD Chest Wall inspection of chest normal Resp normal respiratory effort and clear to auscultation bilaterally Cardio regular rate, regular rhythm, S1 normal heart sound, S2 normal heart sound and no murmurs Back/Spine Back/Spine Narrative: Incisions is still open. There is no erythema. There is no warmth. There is no lymphangitis. There is fullness lateral to the incision. This elicits tenderness. Please see procedure note Cervical Spine: Negative for cervical spine tenderness Thoracic Spine / Upper Back: Negative for thoracic spinal tenderness or paraspinal muscle tenderness Lumbar Spine / Lower Back: lumbar spinal tenderness Extremity Negative for normal to inspection General Extremety ED: Yes edema; Negative for tenderness General Extremity: edema Neuro oriented x3 and CN's II-XII intact bilaterally Sensorium / Orientation: alert Psych mental status grossly normal Skin no rashes or lesions noted Skin Narrative: Wound previously described and see procedure note General Skin Exam: Negative for jaundice or pallor Wounds: wounds noted MDM MDM MDM Narrative Medical decision making narrative: Concern patient incision closed prohibiting drainage of any additional purulent material. Will probe to determine if there is any fluid or purulent material in the cavity lateral to the incision site. Procedures Other Procedures Procedure(s): Trang clamp was introduced and there was a large cavity with drainage of serous fluid. There was no purulent fluid. Wick was placed to facilitate further drainage and prevent recurrence. This is to remain in place for 2 to 3 days. Since there is no evidence of infection she is not febrile she was discharged back to the nursing facility. Discharge Plan Triage Chief Complaint: Abscess ED Provider: Wagner Tineo Dx/Rx/DC Orders Clinical Impression: Cutaneous abscess of back [any part, except buttock] Instructions: ED Abscess Incision And Drainage Prescriptions: No Action venlafaxine 150 MG capsule 150 mg PO DAILY RF: 0 acetaminophen 500 MG tablet 1,000 mg PO Q6H PRN PRN (Reason: Pain Score 1-10) RF: 0 omeprazole 20 mg Capsule,Delayed Release(Dr/Ec) 20 mg PO DAILY RF: 0 fosfomycin tromethamine 3 gram Packet 1 packet PO MO RF: 0 metoprolol tartrate 25 mg Tablet 25 mg PO BID RF: 0 ferrous sulfate 325 mg (65 mg iron) Tablet 325 mg PO BID RF: 0 Multiple Vitamin-Minerals Tablet 1 tab PO DAILY RF: 0 polyethylene glycol 3350 [Miralax] 17 gram Powder In Packet 17 g PO DAILY RF: 0 bisacodyl 10 mg Suppository 10 mg [place] DAILY PRN (Reason: Constipation) RF: 0 fluticasone propionate 50 mcg/actuation [place],Suspension 1 spray INTRANASAL DAILY RF: 0 nystatin [Nyamyc] 100,000 unit/gram Powder 1 applic topical BID Qty: 0 RF: 0 methadone 5 mg Tablet 2.5 mg PO BID 5 Days Qty: 5 RF: 0 amoxicillin-pot clavulanate [Augmentin] 875-125 mg tablet 1 tab PO BID Qty: 20 RF: 0 doxycycline monohydrate 100 MG capsule 100 mg PO BID Qty: 10 RF: 0 Primary Care Provider: Colby Valenzuela Referrals: Colby Valenzuela DO [Primary Care Provider] - 3-5 Days Activity Restrictions/Additional Instructions: Do not remove wick for 3 days. Disposition Disposition: Acute Care Hospital
--- NOTE | 2022-02-17 20:07 | ED.RN ---
Taylor MUÑOZ called the [facility] to inform of pt's return.
== END 2022-02-17 20:11 | disposition skilled nursing facility (03) ==
PROVIDERS: Emergency Provider Emergency Medicine; PCP Family Medicine; Visit Provider Emergency Medicine
DX: L02.212 Cutaneous abscess of back [any part, except buttock and flank] (principal); I11.0 Hypertensive heart disease with heart failure; I50.9 Heart failure, unspecified; E66.01 Morbid (severe) obesity due to excess calories; E78.5 Hyperlipidemia, unspecified; K21.9 Gastro-esophageal reflux disease without esophagitis; F32.A Depression, unspecified; F41.9 Anxiety disorder, unspecified; Z68.37 Body mass index [BMI] 37.0-37.9, adult; Z79.899 Other long term (current) drug therapy
CPT/HCPCS: 10061; 10060; 99284

== ENCOUNTER 2022-04-05 10:53 | Inpatient (IN) | payer MEDICARE, OTHER, MEDICAID, SELFPAY ==
[2022-04-05] VITALS (10 sets, daily range): BP systolic 94–138; BP diastolic 47–91; PULSE 70–83; RESP 12–20; TEMP 36.2–37.1; O2SAT 97–100; BMI 36.2; BMI 35.2
--- NOTE | 2022-04-05 11:18 | EKG12_ITS ---
Test Reason : FEVER Blood Pressure : / mmHG Vent. Rate : 073 BPM Atrial Rate : 073 BPM P-R Int : 142 ms QRS Dur : 072 ms QT Int : 406 ms P-R-T Axes : 000 029 046 degrees QTc Int : 447 ms Normal sinus rhythm Low voltage QRS Borderline ECG Confirmed by CACHORRO THOMPSON, JUAN ([id number]), photo editor BROOKS WIGGINS ([id number]) on 04/06/2022 1:24:24 PM Referred By: Confirmed By:JUAN IVORY MD
--- NOTE | 2022-04-05 11:39 | EX.ED.DYSGE1 ---
HPI History of Present Illness Chief Complaint: Abscess Narrative Narrative: Patient presents from group home facility with elevated temperature of 102?F this morning. She has Tylenol scheduled every 12 hours. They gave her a as needed dose at 3:00 and her temperature came down. She states that she has past medical history of septicemia. She has a suprapubic catheter and has had a left nephrostomy tube. She has a decubitus ulcer above her coccyx that was healing well previously after she got out of her septicemia. Additionally, she has had infected nephrostomy tube and has an open sore on her left flank which has become infected multiple times, this being the fourth. She states she has a suprapubic catheter and nephrostomy tube had been placed because her left kidney is only functioning at 20 to 25%. Her right kidney functions well. She was sent in because she had a fever this morning. She is dependent on a wheelchair. 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 Kidney calculus Morbid obesity Nephrostomy tube displaced VITA (obstructive sleep apnea) VITA (obstructive sleep apnea) Pressure ulcer of coccygeal region, stage 3 Pyonephrosis Recurrent UTI Renal calculus, bilateral Severe sepsis Suprapubic catheter Ulcer of abdomen wall with fat layer exposed Ulcer of left groin with fat layer exposed UTI (urinary tract infection) due to urinary indwelling catheter V tach Home Medications venlafaxine 150 mg PO DAILY 07/02/19 [History Last Taken 09/06/21] omeprazole 20 mg PO DAILY 04/16/21 [History Last Taken 04/05/22] fosfomycin tromethamine 1 packet PO QWEEK 07/02/21 [History Last Taken 04/02/22] metoprolol tartrate 25 mg PO BID 07/02/21 [History Last Taken 09/06/21] Multiple Vitamin-Minerals 1 tab PO DAILY 09/07/21 [History Last Taken 04/05/22] ferrous sulfate 325 mg PO QODAY 09/07/21 [History Last Taken 04/05/22] bisacodyl 10 mg RI DAILY PRN 11/08/21 [History Last Taken Unknown] fluticasone propionate 1 spray INTRANASAL DAILY 11/08/21 [History Last Taken 04/05/22] polyethylene glycol 3350 [Miralax] 17 g PO DAILY 11/08/21 [History Last Taken Unknown] amoxicillin-pot clavulanate [Augmentin] 1 tab PO BID #20 tab 11/12/21 [Rx Last Taken Unknown] nystatin [Nyamyc] 1 applic TOPICAL BID #0 g 11/12/21 [Rx Last Taken Unknown] doxycycline monohydrate 100 mg PO BID #10 capsule 02/14/22 [Rx Last Taken Unknown] acetaminophen 1,000 mg PO BID 04/05/22 [History Last Taken 04/05/22] hydroxyzine HCl 04/05/22 [History Last Taken Unknown] methadone 04/05/22 [History Last Taken Unknown] methadone 2.5 mg PO DAILY 04/05/22 [History Last Taken 04/05/22] oxybutynin chloride mg PO 04/05/22 [History Last Taken Unknown] pregabalin 04/05/22 [History Last Taken Unknown] Allergy/AdvReac Type Severity Reaction Status Date / Time adhesive tape Allergy blisters Verified 04/05/22 10:55 Influenza Virus Vaccines Allergy shortness Verified 04/05/22 10:55 of breath/severe wheezing iron Allergy from IV Verified 04/05/22 10:55 form chest pressure and heart palpitations Sulfa (Sulfonamide Allergy Shortness Verified 04/05/22 10:55 Antibiotics) of breath meloxicam [From Mobic] AdvReac gi upset Verified 04/05/22 10:55 seasonal allergies Allergy Other Uncoded 04/05/22 10:55 Surgical History H/O nephrostomy H/O: hysterectomy History of cholecystectomy History of tonsillectomy Hx of appendectomy Social History household members: none Smoking Status: Never smoker substance use type: does not use ROS ROS ED ROS Narrative Constitutional: Positive fever, no chills. HEENT: No sore throat. No neck pain. No loss of vision. No rhinorrhea. Cardiovascular: No chest pain. No palpitations. No pedal edema. Respiratory: No cough, no shortness of breath. Abdominal: No abdominal pain. No nausea. No vomiting. Genitourinary: No dysuria. No hematuria. Musculoskeletal: No myalgias. No arthralgias. Neurologic: No headaches. No dizziness. No lightheadedness. Skin: No rash. No change in color. Open sore on left flank and decubitus ulceration. Psychiatric: No depression. No anxiety. EXAM Physical Exam Narrative Exam Narrative: Afebrile. Vital signs noted. HEENT: Normocephalic. Atraumatic. PERRL, EOMI. Neck soft and supple. No point tenderness or step off. Cardiovascular: Regular rate and rhythm. No murmurs, rubs, or gallops appreciated. Respiratory: No tachypnea. Lungs clear to auscultation bilaterally. Gastrointestinal: Abdomen soft, obese nontender, with normoactive bowel sounds. No rebound or guarding. Positive suprapubic catheter draining cloudy yellow urine. Neurological: Awake. Alert. Nonfocal, nonlateralizing. Skin: No rash. Normal color. No pallor. Musculoskeletal: No pedal edema. Atrophy of left lower extremity. Const Vital Signs: 04/05/22 10:55 04/05/22 10:59 04/05/22 11:03 Temperature 98.4 F Temperature Source Oral Pulse Rate 81 Respiratory Rate 18 Respiratory Effort Normal Non-Labored Respiratory Pattern Normal Blood Pressure 105/47 L 96/66 Blood Pressure Mean 66 76 Pulse Ox 98 Oxygen Delivery Method Room Air 04/05/22 12:07 04/05/22 13:07 04/05/22 14:06 Temperature 98.4 F 98.7 F Temperature Source Oral Oral Pulse Rate 75 77 83 Respiratory Rate 12 16 20 H Respiratory Effort Respiratory Pattern Blood Pressure 138/91 H 115/52 L 126/73 H Blood Pressure Mean 106 73 90 Pulse Ox 97 97 97 Oxygen Delivery Method Room Air Room Air Room Air 04/05/22 14:28 Temperature 98.7 F Temperature Source Oral Pulse Rate 83 Respiratory Rate 20 H Respiratory Effort Respiratory Pattern Blood Pressure 126/73 H Blood Pressure Mean 90 Pulse Ox 97 Oxygen Delivery Method Room Air MDM MDM MDM Narrative Medical decision making narrative: Sepsis work-up was pursued. Patient has normal white count of 9.8. She is afebrile here. Hemoglobin stable at 9.3. Platelet count normal at 327. Her initial laboratories were hemolyzed. Her lactic acid is normal. Electrolyte panel shows a BUN of 33 with a normal creatinine. Sodium, chloride, and potassium are normal. Urine cultures are pending. Chest x-ray interpreted by myself shows no acute pathology. She does have a decubitus ulcer on her coccyx/just above, and her nephrostomy tube site is packed with minimal erythema, no purulent drainage. I do feel that the source of her infection may be her urine, and although her urinalysis shows greater than 100 WBCs, this is from a suprapubic catheter. She was treated with Zosyn. Blood cultures are pending. I discussed the patient with Dr. Sosa for admission to [facility]. She requested that a noncontrast CT of the abdomen pelvis be obtained as the patient has had perinephric abscess previously. Patient does not complain of back pain. She complains of left hip pain and bladder pain more so. I do not feel that she is septic at this time, but given her fever, I feel she requires admission. Disposition is admitted in stable condition. Lab Data Attestation: I reviewed the patient's lab results. Labs: Laboratory Results - last 24 hr 04/05/22 04/05/22 04/05/22 12:00 12:00 12:00 WBC 9.8 RBC 3.46 L Hgb 9.3 L Hct 31.0 L MCV 89.6 MCH 26.9 L MCHC 30.0 L RDW Std Deviation 62.9 H RDW Coeff of Jessi 19.4 H Plt Count 327 MPV 10.5 Immature Gran % (Auto) 0.600 Neut % (Auto) 88.0 H Lymph % (Auto) 6.0 L [place] % (Auto) 4.2 Eos % (Auto) 1.0 Baso % (Auto) 0.2 Absolute Neuts (auto) 8.7 H Absolute Lymphs (auto) 0.59 L Nucleated RBC % 0 Differential Comment SCANNED PT Cancelled INR Cancelled APTT Cancelled Sodium Cancelled Potassium Cancelled Chloride Cancelled Carbon Dioxide Cancelled Anion Gap Cancelled BUN Cancelled Creatinine Cancelled Estim Creat Clear Calc Cancelled Est GFR (MDRD) Af Amer Cancelled Est GFR (MDRD) Non-Af Cancelled BUN/Creatinine Ratio Cancelled Glucose Cancelled Lactic Acid Calcium Cancelled Total Bilirubin Cancelled AST Cancelled ALT Cancelled Alkaline Phosphatase Cancelled Total Protein Cancelled Albumin Cancelled Globulin Cancelled Albumin/Globulin Ratio Cancelled Urine Color Urine Clarity Urine pH Ur Specific Shaw Urine Protein Urine Glucose (UA) Urine Ketones Urine Occult Blood Urine Nitrite Urine Bilirubin Urine Urobilinogen Ur Leukocyte Esterase Urine RBC Urine WBC Ur Squamous Epith Cells Urine Bacteria Urine Mucus 04/05/22 04/05/22 04/05/22 12:00 12:00 13:00 WBC RBC Hgb Hct MCV MCH MCHC RDW Std Deviation RDW Coeff of Jessi Plt Count MPV Immature Gran % (Auto) Neut % (Auto) Lymph % (Auto) [place] % (Auto) Eos % (Auto) Baso % (Auto) Absolute Neuts (auto) Absolute Lymphs (auto) Nucleated RBC % Differential Comment PT 14.7 INR 1.2 APTT 23.6 L Sodium Potassium Chloride Carbon Dioxide Anion Gap BUN Creatinine Estim Creat Clear Calc Est GFR (MDRD) Af Amer Est GFR (MDRD) Non-Af BUN/Creatinine Ratio Glucose Lactic Acid Cancelled Calcium Total Bilirubin AST ALT Alkaline Phosphatase Total Protein Albumin Globulin Albumin/Globulin Ratio Urine Color Yellow Urine Clarity Turbid Urine pH 7.0 Ur Specific Shaw 1.015 Urine Protein 100 H Urine Glucose (UA) Normal Urine Ketones Negative Urine Occult Blood 150 H Urine Nitrite Positive H Urine Bilirubin Negative Urine Urobilinogen Normal Ur Leukocyte Esterase 500 H Urine RBC 0 SEEN Urine WBC >100 SEEN Ur Squamous Epith Cells 0 SEEN Urine Bacteria 0 SEEN Urine Mucus 0 SEEN 04/05/22 04/05/22 13:00 13:00 WBC RBC Hgb Hct MCV MCH MCHC RDW Std Deviation RDW Coeff of Jessi Plt Count MPV Immature Gran % (Auto) Neut % (Auto) Lymph % (Auto) [place] % (Auto) Eos % (Auto) Baso % (Auto) Absolute Neuts (auto) Absolute Lymphs (auto) Nucleated RBC % Differential Comment PT INR APTT Sodium 136 Potassium 4.0 Chloride 105 Carbon Dioxide 24.0 Anion Gap 7 BUN 33 H Creatinine 0.99 Estim Creat Clear Calc 47.75 Est GFR (MDRD) Af Amer 70 Est GFR (MDRD) Non-Af 58 L BUN/Creatinine Ratio 33.2 H Glucose 114 H Lactic Acid 1.6 Calcium 9.0 Total Bilirubin 0.30 AST 10 L ALT 11 L Alkaline Phosphatase 82 Total Protein 7.8 Albumin 2.1 L Globulin 5.7 H Albumin/Globulin Ratio 0.4 L Urine Color Urine Clarity Urine pH Ur Specific Shaw Urine Protein Urine Glucose (UA) Urine Ketones Urine Occult Blood Urine Nitrite Urine Bilirubin Urine Urobilinogen Ur Leukocyte Esterase Urine RBC Urine WBC Ur Squamous Epith Cells Urine Bacteria Urine Mucus Radiography Diagnostic Testing: Clinical Impression(s) from Imaging Studies Chest X-Ray 04/05/22 12:10 IMPRESSION: Normal x-ray examination of the chest. Electronically Signed: Pedro Ortiz MD at 13:12 EDT , Discharge Plan Dx/Rx/DC Orders Clinical Impression: Fever, Chronic kidney disease (CKD), UTI (urinary tract infection), Decubitus ulcer Disposition Disposition: [facility]
--- NOTE | 2022-04-05 12:10 | RAD_ITS ---
STUDY: X-RAY CHEST REASON FOR EXAM: Female, 76 years old. Fever TECHNIQUE: Single AP portable view of the chest. COMPARISON: 06/09/2021 FINDINGS: Interval removal of the tunneled right internal jugular PICC The lungs are clear and expanded. There is no demonstrated pleural abnormality. Normal size heart. Normal mediastinum and peace. Normal visualized pulmonary arteries. Normal visualized aortic arch and descending thoracic aorta. Normal visualized thoracic spine. Normal visualized ribs, clavicles, and shoulders. There is no demonstrated abnormality of the visualized soft tissue structures of the upper abdomen. RAD/Chest 1 View (Portable) IMPRESSION: Normal x-ray examination of the chest. Electronically Signed: Pedro Ortiz MD at 13:12 EDT ,
[2022-04-05 12:13] LABS: Absolute Lymphocyte Count 0.59 X10^3/uL (0.83-4.51); Absolute Neutrophil Count 8.7 X10^3/uL (2.0-7.7); Basophil# 0.02 X10^3/uL; Basophil% 0.2 % (0-1); Hemoglobin 9.3 g/dL (12.0-15.0); Lymphocyte # 0.59 X10^3/ul (0.83-4.51); Mean Corpuscular Hgb 26.9 pg (27.0-32.0); Mean Corpuscular Volume 89.6 fL (81-99); Mean Platelet Vol. 10.5 fl (6.2-12.0); Monocyte# 0.41 X10^3/uL; Monocyte% 4.2 % (0-10); NRBC Flagged by Analyzer 0 % (0-5); Neutrophil # 8.65 X10^3/uL (2.7-7.7); POSITIVE DIFFERENTIAL YES; Platelet Count 327 K/mm3 (150-450); RBC Distribution Width CV 19.4 % (11.6-14.6); RBC Distribution Width SD 62.9 fl (35.1-43.9); Red Blood Count 3.46 M/mm3 (4.2-5.4); White Blood Count 9.8 K/mm3 (4.4-11.0)
[2022-04-05 12:14] LABS: Bacteria 0 SEEN /hpf (None Seen); Differential Indicated SCAN CRITERIA MET; Mucous, Urine 0 SEEN /hpf (<or=2+); Red Blood Cells-Urine 0 SEEN /hpf (0-5); Squamous Epithelial Cells - UA 0 SEEN /hpf (5-10)
[2022-04-05 12:16] LABS: Color, Urine Yellow (Yellow); Glucose, Dipstick Normal (Normal); Ketone-Dipstick Negative (Negative); Leukocyte Esterase-Dipstick 500 /ul (Negative); Nitrite-Dipstick Positive (Negative); Occult Blood-Urine 150 /ul (Negative); Protein-Dipstick 100 mg/dl (Negative); Specific Gravity, Urine 1.015 (1.002-1.030); Urine Bilirubin Dipstick Negative (Negative); Urine Clarity Turbid (Clear); Urine Urobilinogen Normal (Normal)
[2022-04-05 12:27] LABS: White Blood Cells >100 SEEN /hpf (0-5)
--- NOTE | 2022-04-05 12:43 | ED.RN ---
CALLED LAB FOR REDRAW ON BLOOD ORDERED
[2022-04-05 12:55] LABS: Differential Comment SCANNED
[2022-04-05 13:17] LABS: International Normalized Ratio 1.2; Prothrombin Time (Protime)PT. 14.7 SECONDS (11.7-14.9)
[2022-04-05 13:18] LABS: Partial Thromboplast Time 23.6 Seconds (24.1-36.2)
[2022-04-05 13:27] LABS: ALB/GLOB Ratio 0.4 RATIO (0.9-2.4); AST(SGOT) 10 U/L (15-37); Alanine Aminotransfer ALT/SGPT 11 U/L (13-56); Albumin, Serum 2.1 g/dL (3.2-5.0); Alkaline Phosphatase 82 U/L (45-117); Anion Gap 7 (5-15); BUN 33 mg/dL (7-18); BUN/Creat Ratio 33.2 RATIO (10-20); Chloride 105 mmol/L (98-107); Creatinine, Serum 0.99 mg/dL (0.55-1.02); EST Glomerular Filtration Rate 58 mL/min (>60); Est Glom Filt Rate - Afr Amer 70 mL/min (>60); Estimated Creatinine Clearance 47.75 ml/min; Globulin 5.7 g/dL (2.2-4.2); Glucose 114 mg/dL (74-106); Protein, Total 7.8 g/dL (6.4-8.2); Sodium Level 136 mmol/L (136-145)
[2022-04-05 13:32] LABS: Lactic Acid 1.6 mmol/L (0.4-1.9)
--- NOTE | 2022-04-05 14:19 | CT_ITS ---
STUDY: CT ABDOMEN AND PELVIS WITHOUT CONTRAST REASON FOR EXAM: Female, 76 years old. pain RADIATION DOSAGE (If Supplied By Facility): CTDIvol = ( 19.32 ) mGy, DLP = ( 2075.08 ) mGycm TECHNIQUE: Transaxial images were obtained from the dome of the diaphragm to the symphysis pubis without oral contrast, and without intravenous contrast. Sagittal and coronal images were reconstructed. Individualized dose optimization techniques were used for this CT. COMPARISON: 11/08/2021 FINDINGS: The visualized lung bases are unremarkable. The visualized portions of the heart are within normal limits. Normal liver. There are surgical clips in the gallbladder fossa consistent with a prior cholecystectomy. Normal spleen. Normal pancreas. Normal bilateral adrenal glands. 4 mm nonobstructing stone in the lower pole right kidney. Multiple large nonobstructing stones left kidney. Severe left renal atrophy. Normal visualized stomach. Normal small intestine. Normal colon. The appendix is visualized and appears normal. Normal abdominal aorta. Normal inferior vena cava. Normal retroperitoneum. Suprapubic catheter with a collapsed bladder. No change in the decubitus ulcer of the medial aspect of the left buttock with chronic osteomyelitis of the distal sacrum. Normal osseous structures. CT/Abdomen/Pelvis without Cont IMPRESSION: No change in sacral decubitus ulcer with chronic osteomyelitis but no abscess. Electronically Signed: Pedro Ortiz MD at 15:20 EDT ,
--- NOTE | 2022-04-05 14:19 | ED.RN ---
called Anny MUÑOZ at [facility] to inform of pt's admission and to please re fax med list.
--- NOTE | 2022-04-05 14:23 | HP.PCM.HOS_ITS ---
HPI - General General Date of Admission: 04/05/22 HPI Narrative ISELA CAMARENA, is a 76 F who presented to the emergency department was coming hospital from the nursing facility where she resides with fever that started this morning. She had a T-max of 102 at the correction facility early this morning and they gave her an as needed dose of Tylenol at 3 AM which resolved her temperature. She has a history of suprapubic catheter and previous left nephrostomy tube for abscess. Her most recent catheter exchange was at least 2 months ago if not more. It was changed here by urology in October and she indicates its only been changed once since. She indicates she also had an i nfected nephrostomy tube site and had an open sore on her left flank which has become infected multiple times but she has been having packing and dressing changes at the facility. She also has a chronic sacral decubitus with chronic osteomyelitis at that area. She states that she had been at her baseline prior to this morning. She indicates approximately 2 weeks ago she had some diarrhea and felt it was related to the Jif peanut butter she had been eating which she has since gotten rid of. This morning when she awoke and had her fever she states she had pain all over her body and felt malaise. She denies any nausea, vomiting, chills, constipation, diarrhea, cough, new tingling, numbness, or weakness and has no urinary symptoms as she has a chronic suprapubic catheter. Her urine looks quite purulent with significant sediment and her UA was concerning for infection. In the emergency department she was treated with Vanco and Zosyn and request for admission was made. Vital signs upon presentation showed a temperature of 98.4, pulse of 75, blood pressure of 138/91, respiratory rate of 12 and oxygen saturation was 97% on room air. Her CBC showed a normal white count with a chronic stable anemia and normal platelets. She does have a left shift with an 88% neutrophil count. Co ags are normal. Her chemistry panel is unremarkable. A lactic acid was obtained and found to be 1.6. LFTs are normal. Her urine was quite turbid with positive nitrite, leukoesterase and greater than 100 white cells per high- powered field. No bacteria were seen on her UA. Blood and urine cultures were sent from the emergency department and she was placed on broad-spectrum antibiotics. A CT of her abdomen pelvis was performed given her history of abscess and her pain complaints and this showed unremarkable lung bases, normal liver with prior cholecystectomy, bilateral normal adrenal glands, 4 mm nonobstructing stone in the lower pole of the right kidney with multiple large obstructing stones in the left kidney and severe left renal atrophy, normal intestine/colon/appendix, and a suprapubic catheter with a collapsed bladder. There is also no change in the decubitus ulcer at the medial aspect of the left buttock with chronic osteomyelitis of the distal sacrum which was compared to a previous CAT scan done on 11/08/2021. She was admitted to the medical surgical floor and maintained on broad-spectrum antibiotics with cultures pending on admission. 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 Kidney calculus Morbid obesity Nephrostomy tube displaced VITA (obstructive sleep apnea) VITA (obstructive sleep apnea) Pressure ulcer of coccygeal region, stage 3 Pyonephrosis Recurrent UTI Renal calculus, bilateral Severe sepsis Suprapubic catheter Ulcer of abdomen wall with fat layer exposed Ulcer of left groin with fat layer exposed UTI (urinary tract infection) due to urinary indwelling catheter V tach Home Medications venlafaxine 150 mg PO BID 07/02/19 [History Last Taken 04/05/22] omeprazole 20 mg PO DAILY 04/16/21 [History Last Taken 04/05/22] fosfomycin tromethamine 1 packet PO QWEEK 07/02/21 [History Last Taken 04/02/22] metoprolol tartrate 25 mg PO BID 07/02/21 [History Last Taken 04/05/22] Multiple Vitamin-Minerals 1 tab PO DAILY 09/07/21 [History Last Taken 04/05/22] ferrous sulfate 325 mg PO QODAY 09/07/21 [History Last Taken 04/05/22] bisacodyl 10 mg ME DAILY PRN 11/08/21 [History Last Taken Unknown] fluticasone propionate 1 spray INTRANASAL DAILY 11/08/21 [History Last Taken 04/05/22] polyethylene glycol 3350 [Miralax] 17 g PO DAILY PRN 11/08/21 [History Last Taken Unknown] acetaminophen 1,000 mg PO BID 04/05/22 [History Last Taken 04/05/22] diphenhydramine HCl 25 mg PO Q12H PRN PRN 04/05/22 [History Last Taken 03/14/22] hydroxyzine HCl 25 mg PO Q6H PRN PRN 04/05/22 [History Last Taken 04/04/22] loperamide [Imodium A-D] 2 mg PO Q6H PRN 04/05/22 [History Last Taken 03/31/22] methadone 2.5 mg PO DAILY 04/05/22 [History Last Taken 04/05/22] methadone 5 mg PO QHS 04/05/22 [History Last Taken 04/04/22] oxybutynin chloride 10 mg PO DAILY 04/05/22 [History Last Taken 04/05/22] pregabalin 50 mg PO DAILY 04/05/22 [History Last Taken 04/05/22] pregabalin 50 mg PO DAILY 04/05/22 [History Last Taken 04/05/22] Allergy/AdvReac Type Severity Reaction Status Date / Time adhesive tape Allergy blisters Verified 04/05/22 10:55 Influenza Virus Vaccines Allergy shortness Verified 04/05/22 10:55 of breath/severe wheezing iron Allergy from IV Verified 04/05/22 10:55 form chest pressure and heart palpitations Sulfa (Sulfonamide Allergy Shortness Verified 04/05/22 10:55 Antibiotics) of breath meloxicam [From Mobic] AdvReac gi upset Verified 04/05/22 10:55 seasonal allergies Allergy Other Uncoded 04/05/22 10:55 Family History other other (Nonpertinent) Surgical History H/O nephrostomy H/O: hysterectomy History of cholecystectomy History of tonsillectomy Hx of appendectomy Social History (Updated 04/05/22 @ 18:[address] Racheal Sosa DO) household members: none housing: long-term Smoking Status: Never smoker alcohol intake: never substance use type: does not use ROS Constitutional Constitutional: Reports fever(s), malaise and weakness; Denies anorexia, change in weight, chills, fatigue, night sweats or other Eyes Eyes: Denies blurry vision, change in eye color, change in vision, discharge from eye(s), double vision, erythema, eye pain, loss of vision or other ENT HEENT: Denies abnormal hearing, dysphagia, ear pain, epistaxis, headache(s), hearing loss, nasal congestion, nasal discharge, post nasal drip, sinus pressure, sore throat or other Cardiovascular Cardiovascular: Denies chest pain, claudication, dyspnea on exertion, edema, lightheadedness, orthopnea, palpitations, paroxysmal nocturnal dyspnea, rapid heart rate, syncope or other Respiratory/Chest Respiratory/Chest: Denies cough, dyspnea, excessive phlegm production, hemoptysis, productive cough, shortness of breath at rest, shortness of breath with exertion, wheezing or other Gastrointestinal Gastrointestinal: Denies abdominal pain, coffee ground emesis, constipation, diarrhea, dyspepsia, hematemesis, hematochezia, loose stools, melena, nausea, vomiting or other Genitourinary Genitourinary: Reports other Details: Chronic suprapubic catheter ; Denies burning urination, difficulty urinating, dysuria, hematuria, nocturia, urinary frequency, urinary hesitancy, urinary incontinence or urinary urgency Musculoskeletal Musculoskeletal: Reports back pain, joint pain and joint stiffness Neurologic Neurologic: Reports abnormal gait, paresthesias and tingling; Denies abnormal speech, confusion, disequilibrium, dizziness, focal weakness, headache(s), numbness, seizure-like activity, seizures, syncope, tremor(s) or other Psychiatric Psychiatric: Denies anxiety, depression, homicidal ideation, suicidal ideation or other Endocrine Endocrinology: Denies change in body appearance, cold intolerance, excessive sweating, heat intolerance, polydipsia, polyuria or other Hematologic/Lymphatic Hematologic/Lymphatic: Denies anemia, easy bleeding, easy bruising, lymphadenopathy or other Allergic/Immunologic Allergic/Immunologic: Denies rhinitis, hives, eczemia, asthma or other Vital Signs Vital Signs Vital Signs: 04/05/22 10:55 04/05/22 10:59 04/05/22 11:03 Temperature 98.4 F Temperature Source Oral Pulse Rate 81 Respiratory Rate 18 Respiratory Effort Normal Non-Labored Respiratory Pattern Normal Blood Pressure 105/47 L 96/66 Blood Pressure Mean 66 76 Pulse Ox 98 Oxygen Delivery Method Room Air 04/05/22 12:07 04/05/22 13:07 04/05/22 14:06 Temperature 98.4 F 98.7 F Temperature Source Oral Oral Pulse Rate 75 77 83 Respiratory Rate 12 16 20 H Respiratory Effort Respiratory Pattern Blood Pressure 138/91 H 115/52 L 126/73 H Blood Pressure Mean 106 73 90 Pulse Ox 97 97 97 Oxygen Delivery Method Room Air Room Air Room Air Weight Weight: 104.9 kg Body Mass Index (BMI) 36.2 Physical Exam Const alert, oriented x3 and no apparent distress Constitutional Narrative: Obese, elderly, white female lying in bed, appears comfortable, nontoxic, appropriately interactive and able to give a good history, nursing is at the bedside General Appearance: cooperative HEENT normocephalic, head/scalp atraumatic, hearing grossly normal bilaterally and moist oral mucous membranes HEENT Narrative: Mallampati 3, no thrush, edentulous Eyes PERRL and EOMs intact bilaterally Eyes Narrative: Conjunctiva are mildly pale, no scleral icterus Neck no lymphadenopathy, supple, no JVD and no carotid bruits Neck Narrative: Trachea midline, no thyroid enlargement, neck is short and thick Resp normal respiratory effort, no retractions, no use of accessory muscles and clear to auscultation bilaterally Resp Narrative: Distant but clear Auscultation: Negative for crackles, rales, rhonchi or wheezes Cardio regular rate, regular rhythm, S1 normal heart sound, S2 normal heart sound, no murmurs, no rub, no gallops, no clicks and no JVD GI normal to inspection, nondistended, normoactive bowel sounds, soft to palpation, non-tender, non-distended and hepatosplenomegaly GI Narrative: Large abdomen Extremity no clubbing, cyanosis or edema Peripheral Pulses: Yes pulses 2+ throughout Skin Skin Narrative: Wound on left back/flank area currently packed, very minimal purulent drainage, sacral wound that is unstageable approximately the size of a tennis ball with no acute signs of infections-appears very clean Neuro oriented x3, CN's II-XII intact bilaterally, moves all extremities and no focal motor deficits Neuro Narrative: Severe bilateral lower extremity weakness but no focal deficits Sensorium / Orientation: awake and alert Speech: speech normal Psych affect normal Psych Narrative: Appropriately interactive very pleasant Results Lab / Micro Data Attestation: I reviewed the patient's lab results. Result Diagrams: 05/24/22 12:00 04/05/22 13:00 Labs: Laboratory Results - last 24 hr 04/05/22 12:00: WBC 9.8, RBC 3.46 L, Hgb 9.3 L, Hct 31.0 L, MCV 89.6, MCH 26.9 L , MCHC 30.0 L, RDW Std Deviation 62.9 H, RDW Coeff of Jessi 19.4 H, Plt Count 327, MPV 10.5, Immature Gran % (Auto) 0.600, Neut % (Auto) 88.0 H, Lymph % (Auto) 6.0 L, [place] % (Auto) 4.2, Eos % (Auto) 1.0, Baso % (Auto) 0.2, Absolute Neuts (auto) 8.7 H, Absolute Lymphs (auto) 0.59 L, Nucleated RBC % 0, Differential Comment SCANNED 04/05/22 12:00: PT Cancelled, INR Cancelled, APTT Cancelled 04/05/22 12:00: Sodium Cancelled, Potassium Cancelled, Chloride Cancelled, Carbon Dioxide Cancelled, Anion Gap Cancelled, BUN Cancelled, Creatinine Cancelled, Estim Creat Clear Calc Cancelled, Est GFR (MDRD) Af Amer Cancelled, Est GFR (MDRD) Non-Af Cancelled, BUN/Creatinine Ratio Cancelled, Glucose Cancelled, Calcium Cancelled, Total Bilirubin Cancelled, AST Cancelled, ALT Cancelled, Alkaline Phosphatase Cancelled, Total Protein Cancelled, Albumin Cancelled, Globulin Cancelled, Albumin/Globulin Ratio Cancelled 04/05/22 12:00: Lactic Acid Cancelled 04/05/22 12:00: Urine Color Yellow, Urine Clarity Turbid, Urine pH 7.0, Ur Specific [place] 1.015, Urine Protein 100 H, Urine Glucose (UA) Normal, Urine Ketones Negative, Urine Occult Blood 150 H, Urine Nitrite Positive H, Urine Bilirubin Negative, Urine Urobilinogen Normal, Ur Leukocyte Esterase 500 H, Urine RBC 0 SEEN, Urine WBC >100 SEEN, Ur Squamous Epith Cells 0 SEEN, Urine Bacteria 0 SEEN, Urine Mucus 0 SEEN 04/05/22 13:00: PT 14.7, INR 1.2, APTT 23.6 L 04/05/22 13:00: Sodium 136, Potassium 4.0, Chloride 105, Carbon Dioxide 24.0, Anion Gap 7, BUN 33 H, Creatinine 0.99, Estim Creat Clear Calc 47.75, Est GFR (MDRD) Af Amer 70, Est GFR (MDRD) Non-Af 58 L, BUN/Creatinine Ratio 33.2 H, Glucose 114 H, Calcium 9.0, Total Bilirubin 0.30, AST 10 L, ALT 11 L, Alkaline Phosphatase 82, Total Protein 7.8, Albumin 2.1 L, Globulin 5.7 H, Albumin/Globulin Ratio 0.4 L 04/05/22 13:00: Lactic Acid 1.6 Radiology Impression Chest X-Ray 04/05/22 12:10 IMPRESSION: Normal x-ray examination of the chest. Electronically Signed: Pedro Ortiz MD at 13:12 EDT , Assessment & Plan Assessment/Plan (1) Fever: (2) UTI (urinary tract infection): (3) Decubitus ulcer: (4) Suprapubic catheter: (5) Chronic osteomyelitis of sacrum: PLAN: Complicated urinary tract infection -Patient with history of nephrostomy tube on left with chronic suprapubic catheter -UA is positive for occult blood, protein, nitrite, leukoesterase and has greater than 100 white blood cells per high-powered field but curiously is negative for any bacteria at this time however the patient was on recent antibiotics -We will cover her with broad-spectrum antibiotics given the fact she resides in a nursing facility and narrow as appropriate -Blood and urine cultures are pending -Appears that the patient is on fosfomycin for prophylaxis -CT of the abdomen pelvis shows no intra-abdominal abnormalities and only chronic osteo at the sacrum -Consult Dr. Zavala for change of the suprapubic catheter as it has been at least 2 months since her previous change -Urology will see the patient tomorrow morning Chronic decubitus ulcer with chronic oste -cultures obtained -Broad-spectrum antibiotics as above -We will consult infectious disease Left back wound from nephrostomy site -Recent I&D of the area -Culture was performed -Antibiotics as above Fever -Suspect related to the above -Infectious work-up in progress -Monitor -T-max was 102 at the facility Chronic normocytic anemia -Counts are stable -Monitor -CBC in a.m. -Patient is on iron supplementation at baseline we will continue CKD stage IIIa -Estimated GFR is 58 and appears this is her baseline -Current serum creatinine 0.99 Hypertension -Continue metoprolol Neuropathy -Continue pregabalin GERD -Continue omeprazole Chronic pain/debility -Continue as needed acetaminophen -Continue home methadone -Continue home bowel regimen -PT/OT consultation -Patient is fairly immobile at baseline Depression -Continue Effexor DVT prophylaxis -Lovenox -SCDs CODE STATUS -Full code as per discussion with the patient the emergency department Charges/Coding Visit Charges Inpatient E&M: 84211 Init Hosp L3
--- NOTE | 2022-04-05 14:34 | ED.RN ---
called palliative care to inform of pt's admission
--- NOTE | 2022-04-05 16:29 | PCM.RX.CS ---
Consult Pharmacy has been consulted to manage selected antiobiotic: Vancomycin Type of Consult: New start Prior Doses of Antibiotics Received/Current Regimen: received vanc 1500mg IV in E.R. starting at 15:10 today Labs: Sodium 136 mmol/L (136-145) 04/05/22 13:00 Potassium 4.0 mmol/L (3.5-5.1) 04/05/22 13:00 Chloride 105 mmol/L (98-107) 04/05/22 13:00 Carbon Dioxide 24.0 mmol/L (21.0-32.0) 04/05/22 13:00 Anion Gap 7 (5-15) 04/05/22 13:00 BUN 33 mg/dL (7-18) H 04/05/22 13:00 Creatinine 0.99 mg/dL (0.55-1.02) 04/05/22 13:00 Est GFR (MDRD) Af Amer 70 mL/min (>60) 04/05/22 13:00 Est GFR (MDRD) Non-Af 58 mL/min (>60) L 04/05/22 13:00 BUN/Creatinine Ratio 33.2 RATIO (10-20) H 04/05/22 13:00 Glucose 114 mg/dL (74-106) H 04/05/22 13:00 Weight used for dosin.9 kg Estimated Creatinine Clearance: 60 ml/min Goal Trough: 15-20 mcg/mL Pharmacy Plan for Drug Dosing: The patient already had the initial standard dose in E.R. so will continue after that with 1000mg IV q12h. The patient was on the borderline with going up to the next dose per our [facility] dosing chart but elected to keep patient at 1000mg q12h for now due to her age. Will check a trough before the 4th total dose. The patient's CrCl of 60ml/min was calculated using an adjusted body weight of 77.7kg. Pharmacy Service will continue to monitor and adjust dosing as required. Follow-Up Labs: Trough Vancomycin Labs to be done on [date and time ordered]: 04/07/22 02:30
[2022-04-05] MEDS: Acetaminophen 325 MG Tablet 650 MG PO (17:31)
[2022-04-05 17:32] LABS: M R Staph aureus DNA By PCR Negative (Negative); Probe Check PASS; Specimen Processing Control PASS; Staph aureus DNA By PCR NEGATIVE (Negative)
[2022-04-05 17:35] LABS: M R Staph aureus DNA By PCR Negative (Negative); Probe Check PASS; Specimen Processing Control PASS; Staph aureus DNA By PCR NEGATIVE (Negative)
[2022-04-05] MEDS: Nystatin Powder 15gm Bottle 1 APPLIC TOPICAL (22:19)
[2022-04-06] VITALS (9 sets, daily range): BP systolic 92–147; BP diastolic 43–125; PULSE 76–87; RESP 16–20; TEMP 36.7–37; O2SAT 96–100
[2022-04-06] MEDS: Vancomycin IV 1,000 MG/200 ML BAG 200 MG IV ×2 (03:07→15:06)
[2022-04-06 05:17] LABS: Absolute Lymphocyte Count 0.41 X10^3/uL (0.83-4.51); Absolute Neutrophil Count 4.2 X10^3/uL (2.0-7.7); Basophil# 0.02 X10^3/uL; Basophil% 0.4 % (0-1); Eosinophil# 0.38 X10^3/uL; Hematocrit 26.8 % (37-47); Lymphocyte # 0.41 X10^3/ul (0.83-4.51); Lymphocyte % 7.6 % (19-41); Mean Corp Hgb Conc 29.9 g/dL (32-36); Mean Corpuscular Hgb 26.5 pg (27.0-32.0); Mean Corpuscular Volume 88.7 fL (81-99); Mean Platelet Vol. 9.5 fl (6.2-12.0); Monocyte% 7.4 % (0-10); NRBC Flagged by Analyzer 0 % (0-5); Neutrophil # 4.17 X10^3/uL (2.7-7.7); Neutrophil % 77.2 % (47-70); POSITIVE DIFFERENTIAL YES; Platelet Count 249 K/mm3 (150-450); RBC Distribution Width CV 18.6 % (11.6-14.6); RBC Distribution Width SD 60.5 fl (35.1-43.9); Red Blood Count 3.02 M/mm3 (4.2-5.4); White Blood Count 5.4 K/mm3 (4.4-11.0)
[2022-04-06 05:22] LABS: Differential Indicated SCAN CRITERIA MET
[2022-04-06 05:38] LABS: Differential Comment SCANNED
[2022-04-06 05:43] LABS: ALB/GLOB Ratio 0.4 RATIO (0.9-2.4); AST(SGOT) 11 U/L (15-37); Alanine Aminotransfer ALT/SGPT 10 U/L (13-56); Albumin, Serum 1.8 g/dL (3.2-5.0); Alkaline Phosphatase 71 U/L (45-117); Anion Gap 4 (5-15); BUN 32 mg/dL (7-18); BUN/Creat Ratio 30.2 RATIO (10-20); Calcium,Total 8.7 mg/dL (8.5-10.1); Chloride 104 mmol/L (98-107); Creatinine, Serum 1.06 mg/dL (0.55-1.02); EST Glomerular Filtration Rate 54 mL/min (>60); Est Glom Filt Rate - Afr Amer 65 mL/min (>60); Estimated Creatinine Clearance 44.59 ml/min; Globulin 4.9 g/dL (2.2-4.2); Glucose 102 mg/dL (74-106); Magnesium 1.8 mg/dL (1.6-2.6); Potassium 3.8 mmol/L (3.5-5.1); Protein, Total 6.7 g/dL (6.4-8.2); Sodium Level 135 mmol/L (136-145)
[2022-04-06 05:47] LABS: Phosphorus 3.5 mg/dL (2.5-4.9)
--- NOTE | 2022-04-06 07:56 | PCM.CONS.GEN ---
Assessment & Plan Assessment/Plan (1) UTI (urinary tract infection): (2) Fever: (3) Suprapubic catheter: (4) Nephrostomy complication: PLAN: continue supportive care change suprapubic tube every 4 weeks and as needed continue care for flank etc per [facility] HPI Consult Data Date of Consult: 04/06/22 HPI Narrative HPI Narrative: ISELA CAMARENA, is a 76 F with chronic suprapubic tube, left flank abscess, chronic deconditioning etc admitted with fever. Suprapubic tube needs to be changed and I was consulted for this. This morning she is feeling better. No issues over night. Suprapubic tube has been draining ok, not sure when the last change was. 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 Kidney calculus Morbid obesity Nephrostomy tube displaced VITA (obstructive sleep apnea) VITA (obstructive sleep apnea) Pressure ulcer of coccygeal region, stage 3 Pyonephrosis Recurrent UTI Renal calculus, bilateral Severe sepsis Suprapubic catheter Ulcer of abdomen wall with fat layer exposed Ulcer of left groin with fat layer exposed UTI (urinary tract infection) due to urinary indwelling catheter V tach Home Medications venlafaxine 150 mg PO DAILY 07/02/19 [History Last Taken 04/05/22] omeprazole 20 mg PO DAILY 04/16/21 [History Last Taken 04/05/22] fosfomycin tromethamine 1 packet PO QWEEK 07/02/21 [History Last Taken 04/02/22] metoprolol tartrate 25 mg PO BID 07/02/21 [History Last Taken 04/05/22] Multiple Vitamin-Minerals 1 tab PO DAILY 09/07/21 [History Last Taken 04/05/22] ferrous sulfate 325 mg PO QODAY 09/07/21 [History Last Taken 04/05/22] bisacodyl 10 mg [place] DAILY PRN 11/08/21 [History Last Taken Unknown] fluticasone propionate 1 spray INTRANASAL DAILY 11/08/21 [History Last Taken 04/05/22] polyethylene glycol 3350 [Miralax] 17 g PO DAILY PRN 11/08/21 [History Last Taken Unknown] acetaminophen 1,000 mg PO BID 04/05/22 [History Last Taken 04/05/22] diphenhydramine HCl 25 mg PO Q12H PRN PRN 04/05/22 [History Last Taken 03/14/22] hydroxyzine HCl 25 mg PO Q6H PRN PRN 04/05/22 [History Last Taken 04/04/22] loperamide [Imodium A-D] 2 mg PO Q6H PRN 04/05/22 [History Last Taken 03/31/22] methadone 2.5 mg PO DAILY 04/05/22 [History Last Taken 04/05/22] methadone 5 mg PO QHS 04/05/22 [History Last Taken 04/04/22] oxybutynin chloride 10 mg PO DAILY 04/05/22 [History Last Taken 04/05/22] pregabalin 50 mg PO DAILY 04/05/22 [History Last Taken 04/05/22] pregabalin 50 mg PO DAILY 04/05/22 [History Last Taken 04/05/22] Allergy/AdvReac Type Severity Reaction Status Date / Time adhesive tape Allergy blisters Verified 04/05/22 10:55 Influenza Virus Vaccines Allergy shortness Verified 04/05/22 10:55 of breath/severe wheezing iron Allergy from IV Verified 04/05/22 10:55 form chest pressure and heart palpitations Sulfa (Sulfonamide Allergy Shortness Verified 04/05/22 10:55 Antibiotics) of breath meloxicam [From Mobic] AdvReac gi upset Verified 04/05/22 10:55 seasonal allergies Allergy Other Uncoded 04/05/22 10:55 Family History other Surgical History H/O nephrostomy H/O: hysterectomy History of cholecystectomy History of tonsillectomy Hx of appendectomy Social History household members: none housing: alf Smoking Status: Never smoker alcohol intake: never substance use type: does not use ROS Constitutional Constitutional: Reports fever(s) Eyes Eyes: Reports systems reviewed and no addt'l complaints, except as documented ENT HEENT: Reports systems reviewed and no addt'l complaints, except as documented Cardiovascular Cardiovascular: Denies chest pain Respiratory/Chest Respiratory/Chest: Denies shortness of breath at rest Gastrointestinal Gastrointestinal: Reports abdominal pain Genitourinary Genitourinary: Reports abdominal discomfort and other Details: purulent urine Musculoskeletal Musculoskeletal: Reports back pain Integumentary Integumentary: Reports systems reviewed and no addt'l complaints, except as documented Neurologic Neurologic: Reports systems reviewed and no addt'l complaints, except as documented Psychiatric Psychiatric: Reports systems reviewed and no addt'l complaints, except as documented Physical Exam Const alert, oriented x3 and no apparent distress General Appearance: cooperative and comfortable HEENT normocephalic, head/scalp atraumatic, hearing grossly normal bilaterally, external ears normal and external nose normal Eyes no scleral icterus General Eye: normal appearance of both eyes Neck supple General: trachea midline Lymph Lymphatic: no lymphedema noted Chest inspection of chest normal Resp normal respiratory effort, normal air movement, no retractions and no use of accessory muscles Cardio Rate: regular rate Rhythm: regular rhythm GI soft to palpation, non-tender and non-distended GI Narrative: SPT site is clean without evidence of infection. minimal mucous drainage at site. Narrative: Indwelling suprapubic tube was removed, and using sterile technique, a new 24Fr catheter was inserted to straight drain with 30cc placed into the balloon without issue. She tolerated the procedure well. Bladder / Kidney Exam: catheter in place Extremity Extremity Narrative: SCD's in place Neuro oriented x3 and CN's II-XII intact bilaterally Psych mental status grossly normal, cooperative and affect normal Lab / Micro Data Result Diagrams: 04/06/22 04:58 04/06/22 04:58 Labs: Laboratory Results - last 24 hr 04/05/22 12:00: WBC 9.8, RBC 3.46 L, Hgb 9.3 L, Hct 31.0 L, MCV 89.6, MCH 26.9 L, MCHC 30.0 L, RDW Std Deviation 62.9 H, RDW Coeff of Jessi 19.4 H, Plt Count 327, MPV 10.5, Immature Gran % (Auto) 0.600, Neut % (Auto) 88.0 H, Lymph % (Auto) 6.0 L, [place] % (Auto) 4.2, Eos % (Auto) 1.0, Baso % (Auto) 0.2, Absolute Neuts (auto) 8.7 H, Absolute Lymphs (auto) 0.59 L, Nucleated RBC % 0, Differential Comment SCANNED 04/05/22 12:00: PT Cancelled, INR Cancelled, APTT Cancelled 04/05/22 12:00: Sodium Cancelled, Potassium Cancelled, Chloride Cancelled, Carbon Dioxide Cancelled, Anion Gap Cancelled, BUN Cancelled, Creatinine Cancelled, Estim Creat Clear Calc Cancelled, Est GFR (MDRD) Af Amer Cancelled, Est GFR (MDRD) Non-Af Cancelled, BUN/Creatinine Ratio Cancelled, Glucose Cancelled, Calcium Cancelled, Total Bilirubin Cancelled, AST Cancelled, ALT Cancelled, Alkaline Phosphatase Cancelled, Total Protein Cancelled, Albumin Cancelled, Globulin Cancelled, Albumin/Globulin Ratio Cancelled 04/05/22 12:00: Lactic Acid Cancelled 04/05/22 12:00: Urine Color Yellow, Urine Clarity Turbid, Urine pH 7.0, Ur Specific [place] 1.015, Urine Protein 100 H, Urine Glucose (UA) Normal, Urine Ketones Negative, Urine Occult Blood 150 H, Urine Nitrite Positive H, Urine Bilirubin Negative, Urine Urobilinogen Normal, Ur Leukocyte Esterase 500 H, Urine RBC 0 SEEN, Urine WBC >100 SEEN, Ur Squamous Epith Cells 0 SEEN, Urine Bacteria 0 SEEN, Urine Mucus 0 SEEN 04/05/22 13:00: PT 14.7, INR 1.2, APTT 23.6 L 04/05/22 13:00: Sodium 136, Potassium 4.0, Chloride 105, Carbon Dioxide 24.0, Anion Gap 7, BUN 33 H, Creatinine 0.99, Estim Creat Clear Calc 47.75, Est GFR (MDRD) Af Amer 70, Est GFR (MDRD) Non-Af 58 L, BUN/Creatinine Ratio 33.2 H, Glucose 114 H, Calcium 9.0, Total Bilirubin 0.30, AST 10 L, ALT 11 L, Alkaline Phosphatase 82, Total Protein 7.8, Albumin 2.1 L, Globulin 5.7 H, Albumin/Globulin Ratio 0.4 L 04/05/22 13:00: Lactic Acid 1.6 04/05/22 15:10: S.aureus Protein A PCR NEGATIVE, MRSA (PCR) Negative 04/05/22 : S.aureus Protein A PCR NEGATIVE, MRSA (PCR) Negative 04/06/22 04:58: WBC 5.4, RBC 3.02 L, Hgb 8.0 L, Hct 26.8 L, MCV 88.7, MCH 26.5 L, MCHC 29.9 L, RDW Std Deviation 60.5 H, RDW Coeff of Jessi 18.6 H, Plt Count 249, MPV 9.5, Immature Gran % (Auto) 0.400, Neut % (Auto) 77.2 H, Lymph % (Auto) 7.6 L, [place] % (Auto) 7.4, Eos % (Auto) 7.0 H, Baso % (Auto) 0.4, Absolute Neuts (auto) 4.2, Absolute Lymphs (auto) 0.41 L, Nucleated RBC % 0, Differential Comment SCANNED 04/06/22 04:58: Sodium 135 L, Potassium 3.8, Chloride 104, Carbon Dioxide 27.0, Anion Gap 4 L, BUN 32 H, Creatinine 1.06 H, Estim Creat Clear Calc 44.59, Est GFR (MDRD) Af Amer 65, Est GFR (MDRD) Non-Af 54 L, BUN/Creatinine Ratio 30.2 H, Glucose 102, Calcium 8.7, Magnesium 1.8, Total Bilirubin 0.30, AST 11 L, ALT 10 L, Alkaline Phosphatase 71, Total Protein 6.7, Albumin 1.8 L, Globulin 4.9 H, Albumin/Globulin Ratio 0.4 L 04/06/22 04:58: Phosphorus 3.5 Radiology Impression Chest X-Ray 04/05/22 12:10 IMPRESSION: Normal x-ray examination of the chest. Electronically Signed: Pedro Ortiz MD at 13:12 EDT , Abdomen/Pelvis CT 04/05/22 14:19 IMPRESSION: No change in sacral decubitus ulcer with chronic osteomyelitis but no abscess. Electronically Signed: Pedro Ortiz MD at 15:20 EDT ,
[2022-04-06] MEDS: Multivitamins,Ther W-Minerals Tablet 1 TABLET PO (08:36)
[2022-04-06] MEDS: Tolterodine Tartrate 2 MG CAP.SA PO (08:36)
[2022-04-06] MEDS: Pregabalin 50 MG Capsule PO (08:37)
[2022-04-06] MEDS: Pantoprazole Sodium 20 MG Tablet PO (08:37)
[2022-04-06] MEDS: Nystatin Powder 15gm Bottle 1 APPLIC TOPICAL ×2 (08:37→21:23)
[2022-04-06] MEDS: Enoxaparin 40 MG/0.4 ML Syringe SC (08:38)
--- NOTE | 2022-04-06 10:10 | PCM.CONS.GEN ---
Assessment & Plan Assessment/Plan (1) Fever: PLAN: Feeling better, cxs pending. CT showed chronic sacral osteo, treated for it back in . Wound care consulted. Urology following. Will follow, thank you (2) UTI (urinary tract infection): (3) Chronic osteomyelitis of sacrum: HPI Consult Data Date of Consult: 04/06/22 HPI Narrative HPI Narrative: ISELA CAMARENA, is a 76 F who presented 04/05 from [facility] with new fever over 101, several days progressive R flank pain, lower abd pain, not feeling well. Reports chronic ulcers improving per wound care at facility. Has been on weekly fosfomycin for uti proph. Admitted here on vanc/zosyn, feeling much better. Full ROS performed and neg except as noted above. 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 Kidney calculus Morbid obesity Nephrostomy tube displaced VITA (obstructive sleep apnea) VITA (obstructive sleep apnea) Pressure ulcer of coccygeal region, stage 3 Pyonephrosis Recurrent UTI Renal calculus, bilateral Severe sepsis Suprapubic catheter Ulcer of abdomen wall with fat layer exposed Ulcer of left groin with fat layer exposed UTI (urinary tract infection) due to urinary indwelling catheter V tach Home Medications venlafaxine 150 mg PO DAILY 07/02/19 [History Last Taken 04/05/22] omeprazole 20 mg PO DAILY 04/16/21 [History Last Taken 04/05/22] fosfomycin tromethamine 1 packet PO QWEEK 07/02/21 [History Last Taken 04/02/22] metoprolol tartrate 25 mg PO BID 07/02/21 [History Last Taken 04/05/22] Multiple Vitamin-Minerals 1 tab PO DAILY 09/07/21 [History Last Taken 04/05/22] ferrous sulfate 325 mg PO QODAY 09/07/21 [History Last Taken 04/05/22] bisacodyl 10 mg [place] DAILY PRN 11/08/21 [History Last Taken Unknown] fluticasone propionate 1 spray INTRANASAL DAILY 11/08/21 [History Last Taken 04/05/22] polyethylene glycol 3350 [Miralax] 17 g PO DAILY PRN 11/08/21 [History Last Taken Unknown] acetaminophen 1,000 mg PO BID 04/05/22 [History Last Taken 04/05/22] diphenhydramine HCl 25 mg PO Q12H PRN PRN 04/05/22 [History Last Taken 03/14/22] hydroxyzine HCl 25 mg PO Q6H PRN PRN 04/05/22 [History Last Taken 04/04/22] loperamide [Imodium A-D] 2 mg PO Q6H PRN 04/05/22 [History Last Taken 03/31/22] methadone 2.5 mg PO DAILY 04/05/22 [History Last Taken 04/05/22] methadone 5 mg PO QHS 04/05/22 [History Last Taken 04/04/22] oxybutynin chloride 10 mg PO DAILY 04/05/22 [History Last Taken 04/05/22] pregabalin 50 mg PO DAILY 04/05/22 [History Last Taken 04/05/22] pregabalin 50 mg PO DAILY 04/05/22 [History Last Taken 04/05/22] Allergy/AdvReac Type Severity Reaction Status Date / Time adhesive tape Allergy blisters Verified 04/05/22 10:55 Influenza Virus Vaccines Allergy shortness Verified 04/05/22 10:55 of breath/severe wheezing iron Allergy from IV Verified 04/05/22 10:55 form chest pressure and heart palpitations Sulfa (Sulfonamide Allergy Shortness Verified 04/05/22 10:55 Antibiotics) of breath meloxicam [From Mobic] AdvReac gi upset Verified 04/05/22 10:55 seasonal allergies Allergy Other Uncoded 04/05/22 10:55 Family History other Surgical History H/O nephrostomy H/O: hysterectomy History of cholecystectomy History of tonsillectomy Hx of appendectomy Social History household members: none housing: [facility] Smoking Status: Never smoker alcohol intake: never substance use type: does not use Physical Exam Const alert, oriented x3 and no apparent distress General Appearance: cooperative Exam Limitations: no limitations HEENT normocephalic and head/scalp atraumatic Eyes PERRL and EOMs intact bilaterally Neck supple and No nodes Resp normal air movement and clear to auscultation bilaterally Cardio regular rate and regular rhythm GI soft to palpation, non-tender and non-distended Extremity General Extremity: edema Skin Skin Narrative: no new rash, unable to see sacral wound at this time due to positioning Neuro CN's II-XII intact bilaterally Lab / Micro Data Result Diagrams: 04/06/22 04:58 04/06/22 04:58 Labs: Laboratory Results - last 24 hr 04/05/22 12:00: WBC 9.8, RBC 3.46 L, Hgb 9.3 L, Hct 31.0 L, MCV 89.6, MCH 26.9 L, MCHC 30.0 L, RDW Std Deviation 62.9 H, RDW Coeff of Jessi 19.4 H, Plt Count 327, MPV 10.5, Immature Gran % (Auto) 0.600, Neut % (Auto) 88.0 H, Lymph % (Auto) 6.0 L, [place] % (Auto) 4.2, Eos % (Auto) 1.0, Baso % (Auto) 0.2, Absolute Neuts (auto) 8.7 H, Absolute Lymphs (auto) 0.59 L, Nucleated RBC % 0, Differential Comment SCANNED 04/05/22 12:00: PT Cancelled, INR Cancelled, APTT Cancelled 04/05/22 12:00: Sodium Cancelled, Potassium Cancelled, Chloride Cancelled, Carbon Dioxide Cancelled, Anion Gap Cancelled, BUN Cancelled, Creatinine Cancelled, Estim Creat Clear Calc Cancelled, Est GFR (MDRD) Af Amer Cancelled, Est GFR (MDRD) Non-Af Cancelled, BUN/Creatinine Ratio Cancelled, Glucose Cancelled, Calcium Cancelled, Total Bilirubin Cancelled, AST Cancelled, ALT Cancelled, Alkaline Phosphatase Cancelled, Total Protein Cancelled, Albumin Cancelled, Globulin Cancelled, Albumin/Globulin Ratio Cancelled 04/05/22 12:00: Lactic Acid Cancelled 04/05/22 12:00: Urine Color Yellow, Urine Clarity Turbid, Urine pH 7.0, Ur Specific [place] 1.015, Urine Protein 100 H, Urine Glucose (UA) Normal, Urine Ketones Negative, Urine Occult Blood 150 H, Urine Nitrite Positive H, Urine Bilirubin Negative, Urine Urobilinogen Normal, Ur Leukocyte Esterase 500 H, Urine RBC 0 SEEN, Urine WBC >100 SEEN, Ur Squamous Epith Cells 0 SEEN, Urine Bacteria 0 SEEN, Urine Mucus 0 SEEN 04/05/22 13:00: PT 14.7, INR 1.2, APTT 23.6 L 04/05/22 13:00: Sodium 136, Potassium 4.0, Chloride 105, Carbon Dioxide 24.0, Anion Gap 7, BUN 33 H, Creatinine 0.99, Estim Creat Clear Calc 47.75, Est GFR (MDRD) Af Amer 70, Est GFR (MDRD) Non-Af 58 L, BUN/Creatinine Ratio 33.2 H, Glucose 114 H, Calcium 9.0, Total Bilirubin 0.30, AST 10 L, ALT 11 L, Alkaline Phosphatase 82, Total Protein 7.8, Albumin 2.1 L, Globulin 5.7 H, Albumin/Globulin Ratio 0.4 L 04/05/22 13:00: Lactic Acid 1.6 04/05/22 15:10: S.aureus Protein A PCR NEGATIVE, MRSA (PCR) Negative 04/05/22 : S.aureus Protein A PCR NEGATIVE, MRSA (PCR) Negative 04/06/22 04:58: WBC 5.4, RBC 3.02 L, Hgb 8.0 L, Hct 26.8 L, MCV 88.7, MCH 26.5 L, MCHC 29.9 L, RDW Std Deviation 60.5 H, RDW Coeff of Jessi 18.6 H, Plt Count 249, MPV 9.5, Immature Gran % (Auto) 0.400, Neut % (Auto) 77.2 H, Lymph % (Auto) 7.6 L, [place] % (Auto) 7.4, Eos % (Auto) 7.0 H, Baso % (Auto) 0.4, Absolute Neuts (auto) 4.2, Absolute Lymphs (auto) 0.41 L, Nucleated RBC % 0, Differential Comment SCANNED 04/06/22 04:58: Sodium 135 L, Potassium 3.8, Chloride 104, Carbon Dioxide 27.0, Anion Gap 4 L, BUN 32 H, Creatinine 1.06 H, Estim Creat Clear Calc 44.59, Est GFR (MDRD) Af Amer 65, Est GFR (MDRD) Non-Af 54 L, BUN/Creatinine Ratio 30.2 H, Glucose 102, Calcium 8.7, Magnesium 1.8, Total Bilirubin 0.30, AST 11 L, ALT 10 L, Alkaline Phosphatase 71, Total Protein 6.7, Albumin 1.8 L, Globulin 4.9 H, Albumin/Globulin Ratio 0.4 L 04/06/22 04:58: Phosphorus 3.5 Radiology Impression Chest X-Ray 04/05/22 12:10 IMPRESSION: Normal x-ray examination of the chest. Electronically Signed: Pedro Ortiz MD at 13:12 EDT , Abdomen/Pelvis CT 04/05/22 14:19 IMPRESSION: No change in sacral decubitus ulcer with chronic osteomyelitis but no abscess. Electronically Signed: Pedro Ortiz MD at 15:20 EDT ,
[2022-04-06] MEDS: 0.9% Saline Lock 10 ML Syringe IV (10:39)
[2022-04-06] MEDS: Venlafaxine XR 150 MG Capsule PO (10:39)
--- NOTE | 2022-04-06 11:38 | CASEMGMT ---
Social Work Pt admitted to hospital from [facility]. SW met with pt and introduced self and role of SW. Pt confirms she is living at [facility] and plans to return there upon discharge. SW inquired if SW could notify sister. Pt stating she has spoke to her sister multiple time and sister is aware of admission and discharge plan. Phone call to Adrianna at the [facility] and pt is a skilled nursing resident and can return whenever medically ready. Plan: [facility], intermediate level of care, when medically ready JUAN Sarmiento
--- NOTE | 2022-04-06 11:40 | PN.HOSP_ITS ---
Subjective Subjective Afebrile overnight with a T-max through the night of 98.8. Patient indicates that her temperatures are higher still than she usually is at baseline. I did discuss with her the fosfomycin she is to be taking for suppression of urinary tract infections and she states she believes she is not getting it at the [facility] facility however she will check with them. I asked her to please let us know whether she is getting or not because if she is getting it and its not working may need to change suppression medications and ID has been consulted. Overall she is feeling improved since admission. Objective Data Objective Data Vital Signs: Vital Signs Temp Pulse Resp BP Pulse Ox 98.2 F 84 18 92/43 L 100 04/06/22 08:41 04/06/22 08:41 04/06/22 08:41 04/06/22 08:41 04/06/22 08:41 Oxygen Flow Rate (L/min) 2 Oxygen Delivery Method Room Air Weight: 101.877 kg Body Mass Index (BMI) 35.2 Intake & Output: Intake and Output for Last 24 Hours 04/04/22 04/05/22 04/06/22 23:59 23:59 23:59 Intake Total 780 / 780 203.75 / 203.75 Output Total 250 / 600 650 / 650 Balance 530 / 180 -446.25 / -446.25 Lab / Micro Data Result Diagrams: 04/06/22 04:58 04/06/22 04:58 Labs: Laboratory Results - last 24 hr 04/05/22 12:00: WBC 9.8, RBC 3.46 L, Hgb 9.3 L, Hct 31.0 L, MCV 89.6, MCH 26.9 L , MCHC 30.0 L, RDW Std Deviation 62.9 H, RDW Coeff of Jessi 19.4 H, Plt Count 327, MPV 10.5, Immature Gran % (Auto) 0.600, Neut % (Auto) 88.0 H, Lymph % (Auto) 6.0 L, [place] % (Auto) 4.2, Eos % (Auto) 1.0, Baso % (Auto) 0.2, Absolute Neuts (auto) 8.7 H, Absolute Lymphs (auto) 0.59 L, Nucleated RBC % 0, Differential Comment SCANNED 04/05/22 12:00: PT Cancelled, INR Cancelled, APTT Cancelled 04/05/22 12:00: Sodium Cancelled, Potassium Cancelled, Chloride Cancelled, Carbon Dioxide Cancelled, Anion Gap Cancelled, BUN Cancelled, Creatinine Cancelled, Estim Creat Clear Calc Cancelled, Est GFR (MDRD) Af Amer Cancelled, Est GFR (MDRD) Non-Af Cancelled, BUN/Creatinine Ratio Cancelled, Glucose Cancelled, Calcium Cancelled, Total Bilirubin Cancelled, AST Cancelled, ALT Cancelled, Alkaline Phosphatase Cancelled, Total Protein Cancelled, Albumin Cancelled, Globulin Cancelled, Albumin/Globulin Ratio Cancelled 04/05/22 12:00: Lactic Acid Cancelled 04/05/22 12:00: Urine Color Yellow, Urine Clarity Turbid, Urine pH 7.0, Ur Specific [place] 1.015, Urine Protein 100 H, Urine Glucose (UA) Normal, Urine Ketones Negative, Urine Occult Blood 150 H, Urine Nitrite Positive H, Urine Bilirubin Negative, Urine Urobilinogen Normal, Ur Leukocyte Esterase 500 H, Urine RBC 0 SEEN, Urine WBC >100 SEEN, Ur Squamous Epith Cells 0 SEEN, Urine Bacteria 0 SEEN, Urine Mucus 0 SEEN 04/05/22 13:00: PT 14.7, INR 1.2, APTT 23.6 L 04/05/22 13:00: Sodium 136, Potassium 4.0, Chloride 105, Carbon Dioxide 24.0, Anion Gap 7, BUN 33 H, Creatinine 0.99, Estim Creat Clear Calc 47.75, Est GFR (MDRD) Af Amer 70, Est GFR (MDRD) Non-Af 58 L, BUN/Creatinine Ratio 33.2 H, Glucose 114 H, Calcium 9.0, Total Bilirubin 0.30, AST 10 L, ALT 11 L, Alkaline Phosphatase 82, Total Protein 7.8, Albumin 2.1 L, Globulin 5.7 H, Albumin/Globulin Ratio 0.4 L 04/05/22 13:00: Lactic Acid 1.6 04/05/22 15:10: S.aureus Protein A PCR NEGATIVE, MRSA (PCR) Negative 04/05/22 : S.aureus Protein A PCR NEGATIVE, MRSA (PCR) Negative 04/06/22 04:58: WBC 5.4, RBC 3.02 L, Hgb 8.0 L, Hct 26.8 L, MCV 88.7, MCH 26.5 L , MCHC 29.9 L, RDW Std Deviation 60.5 H, RDW Coeff of Jessi 18.6 H, Plt Count 249, MPV 9.5, Immature Gran % (Auto) 0.400, Neut % (Auto) 77.2 H, Lymph % (Auto) 7.6 L, [place] % (Auto) 7.4, Eos % (Auto) 7.0 H, Baso % (Auto) 0.4, Absolute Neuts (auto) 4.2, Absolute Lymphs (auto) 0.41 L, Nucleated RBC % 0, Differential Comment SCANNED 04/06/22 04:58: Sodium 135 L, Potassium 3.8, Chloride 104, Carbon Dioxide 27.0, Anion Gap 4 L, BUN 32 H, Creatinine 1.06 H, Estim Creat Clear Calc 44.59, Est GFR (MDRD) Af Amer 65, Est GFR (MDRD) Non-Af 54 L, BUN/Creatinine Ratio 30.2 H, Glucose 102, Calcium 8.7, Magnesium 1.8, Total Bilirubin 0.30, AST 11 L, ALT 10 L, Alkaline Phosphatase 71, Total Protein 6.7, Albumin 1.8 L, Globulin 4.9 H, Albumin/Globulin Ratio 0.4 L 04/06/22 04:58: Phosphorus 3.5 Micro: Microbiology 04/05/22 12:00 Urine Catheter - Catheter Urine Culture - Preliminary Gram negative odin Gram negative odin#2 04/05/22 Unknown Interface Orders Gram Stain - Final 04/05/22 15:10 Wound Abcess - Hip Gram Stain - Final Radiography Diagnostic Testing: Radiology Impression Chest X-Ray 04/05/22 12:10 IMPRESSION: Normal x-ray examination of the chest. Electronically Signed: Pedro Ortiz MD at 13:12 EDT , Abdomen/Pelvis CT 04/05/22 14:19 IMPRESSION: No change in sacral decubitus ulcer with chronic osteomyelitis but no abscess. Electronically Signed: Pedro Ortiz MD at 15:20 EDT , Physical Exam Const alert, oriented x3 and no apparent distress Constitutional Narrative: Obese, elderly, white female lying in bed, appears comfortable, nontoxic, patient is very pleasant and nursing is at the bedside General Appearance: cooperative Exam Limitations: no limitations Nutritional Appearance: obese HEENT normocephalic, head/scalp atraumatic, hearing grossly normal bilaterally and moist oral mucous membranes HEENT Narrative: Mallampati 3, no thrush Head and Scalp: normocephalic Resp normal respiratory effort, no retractions, no use of accessory muscles and clear to auscultation bilaterally Resp Narrative: Distant but clear Auscultation: Negative for crackles, rales, rhonchi or wheezes Cardio regular rate, regular rhythm, S1 normal heart sound, S2 normal heart sound, no murmurs, no rub, no gallops, no clicks and no JVD GI normal to inspection, nondistended, normoactive bowel sounds, soft to palpation, non-tender, non-distended and hepatosplenomegaly GI Narrative: Large abdomen Extremity no clubbing, cyanosis or edema Peripheral Pulses: Yes pulses 2+ throughout Neuro oriented x3, moves all extremities and no focal motor deficits Neuro Narrative: Severe bilateral lower extremity weakness but no focal deficits Sensorium / Orientation: awake and alert Speech: speech normal Assessment & Plan Assessment/Plan (1) Fever: (2) UTI (urinary tract infection): (3) Decubitus ulcer: (4) Suprapubic catheter: (5) Chronic osteomyelitis of sacrum: PLAN: Complicated urinary tract infection -Patient with history of nephrostomy tube on left with chronic suprapubic catheter -UA is positive for occult blood, protein, nitrite, leukoesterase and has gre ater than 100 white blood cells per high-powered field but curiously is negative for any bacteria at this time however the patient was on recent antibiotics -Continue vancomycin and Zosyn -Blood and urine cultures remain pending -Urine gram stain so far is showing 2 gram-negative rods both with greater than 100,000 CFU's per mL -Appears that the patient is on fosfomycin for prophylaxis however it is unclear if she is actually been getting this and she is calling the facility to discuss this with them this morning -CT of the abdomen pelvis shows no intra-abdominal abnormalities and only chron ic osteo at the sacrum -Suprapubic catheter has been changed Chronic decubitus ulcer with chronic oste -cultures obtained -Cultures are both pending however sacral wound is showing gram stain with rare gram-positive rods and gram-positive cocci -Wound from nephrostomy tube shows rare white blood cells and rare gram- positive rods -Continue broad-spectrum antibiotics -Infectious diseases following -Wound care is being addressed by bedside nursing as wound care nurse is out this week Left back wound from nephrostomy site -Recent I&D of the area -Culture pending -Antibiotics as above -Wound care is being addressed by bedside nursing as wound care nurse is out this week Fever -T-max was 102 at the facility -Patient has been afebrile since admission with a T-max of 98.8 Chronic normocytic anemia -Counts relatively stable -Monitor -CBC in a.m. -Patient is on iron supplementation at baseline we will continue -No signs of acute blood loss CKD stage IIIa -Estimated GFR is 58 and appears this is her baseline -Current serum creatinine 0.99 Hypertension -Continue metoprolol--> held due to low blood pressures this morning however the patient's blood pressures are taken on her forearm and I suspect these are inaccurate -Patient is completely asymptomatic Neuropathy -Continue pregabalin GERD -Continue omeprazole Chronic pain/debility -Continue as needed acetaminophen -Continue home methadone -Continue home bowel regimen -PT/OT consultation pending -Patient is fairly immobile at baseline and does not ambulate Depression -Continue Effexor DVT prophylaxis -Lovenox -SCDs CODE STATUS -Full code as per discussion with the patient the emergency department Disposition: -Possible discharge in the next 24 hours depending on culture results Charges/Coding Visit Charges Inpatient E&M: 46333 Subs Hosp L2
--- NOTE | 2022-04-06 16:05 | CHAPLAIN ---
Type of Pastoral Visit _x__ Initial Visit ___ Follow-up Visit ___ On-call Visit ___ General Patient Visit ___ Spiritual Assessment ___ Family Conference ___ Bereavement ___ Rapid Response ___ Code Blue ___ Other (describe below) Pastoral Care Referral From _x__ Patient ___ Family ___ Nurse ___ Physician ___ Editorial Writer ___ Resource Technician ___ Other (describe below) Sacrament/Intervention ___ Active listening ___ Anointing ___ Amish ___ Bereavement ___ Communion ___ Diane exploration ___ ___ Life review _x__ Prayer ___ Reconciliation ___ Sacrament of Sick _x__ Supportive presence ___ Wedding ___ Other (describe below) Pastoral Comments met patient and offered support; pt is sleepy from meds and states she hopes to rest but requests a prayer for now
[2022-04-06] MEDS: Juven (unflavored) Packet 1 PACKET PO (16:44)
[2022-04-06] MEDS: Acetaminophen 325 MG Tablet 650 MG PO (21:56)
[2022-04-07] VITALS (8 sets, daily range): BP systolic 94–120; BP diastolic 47–57; PULSE 66–79; RESP 16–18; TEMP 36.4–36.9; O2SAT 96–100
[2022-04-07 02:59] LABS: Absolute Lymphocyte Count 0.65 X10^3/uL (0.83-4.51); Absolute Neutrophil Count 2.2 X10^3/uL (2.0-7.7); Basophil# 0.02 X10^3/uL; Basophil% 0.5 % (0-1); Eosinophil# 0.37 X10^3/uL; Eosinophils% 10.1 % (0-5); Hematocrit 28.3 % (37-47); Hemoglobin 8.3 g/dL (12.0-15.0); Lymphocyte # 0.65 X10^3/ul (0.83-4.51); Lymphocyte % 17.7 % (19-41); Mean Corp Hgb Conc 29.3 g/dL (32-36); Mean Corpuscular Hgb 26.5 pg (27.0-32.0); Mean Corpuscular Volume 90.4 fL (81-99); Mean Platelet Vol. 9.1 fl (6.2-12.0); Monocyte# 0.46 X10^3/uL; Monocyte% 12.5 % (0-10); NRBC Flagged by Analyzer 0 % (0-5); Neutrophil # 2.15 X10^3/uL (2.7-7.7); Neutrophil % 58.4 % (47-70); Platelet Count 260 K/mm3 (150-450); RBC Distribution Width CV 18.4 % (11.6-14.6); RBC Distribution Width SD 60.6 fl (35.1-43.9); Red Blood Count 3.13 M/mm3 (4.2-5.4); White Blood Count 3.7 K/mm3 (4.4-11.0)
[2022-04-07 03:13] LABS: Anion Gap 3 (5-15); BUN 35 mg/dL (7-18); BUN/Creat Ratio 28.7 RATIO (10-20); Calcium,Total 9.2 mg/dL (8.5-10.1); Chloride 106 mmol/L (98-107); Creatinine, Serum 1.22 mg/dL (0.55-1.02); EST Glomerular Filtration Rate 46 mL/min (>60); Est Glom Filt Rate - Afr Amer 55 mL/min (>60); Estimated Creatinine Clearance 38.75 ml/min; Glucose 109 mg/dL (74-106); Sodium Level 138 mmol/L (136-145)
[2022-04-07] MEDS: DiphenhydrAMINE 25 MG Capsule PO (03:18)
[2022-04-07] MEDS: Vancomycin IV 1,000 MG/200 ML BAG 200 MG IV (03:18)
[2022-04-07 03:27] LABS: Vancomycin, Trough Level 23.1 ug/mL (5.0-15.0)
--- NOTE | 2022-04-07 05:02 | PCM.RX.CS ---
Consult Pharmacy has been consulted to manage selected antiobiotic: Vancomycin Type of Consult: Follow-up Suspected Infection: Other Prior Doses of Antibiotics Received/Current Regimen: Medications Discontinued Medications Vancomycin HCl (Vancomycin) 1,000 mg in 200 mls @ 200 mls/hr IV Q12H ZARINA Last Admin: 04/07/22 03:18 Dose: 200 mls/hr Documented by: Labs: Sodium 138 mmol/L (136-145) 04/07/22 02:50 Potassium 4.0 mmol/L (3.5-5.1) 04/07/22 02:50 Chloride 106 mmol/L (98-107) 04/07/22 02:50 Carbon Dioxide 29.0 mmol/L (21.0-32.0) 04/07/22 02:50 Anion Gap 3 (5-15) L 04/07/22 02:50 BUN 35 mg/dL (7-18) H 04/07/22 02:50 Creatinine 1.22 mg/dL (0.55-1.02) H 04/07/22 02:50 Est GFR (MDRD) Af Amer 55 mL/min (>60) L 04/07/22 02:50 Est GFR (MDRD) Non-Af 46 mL/min (>60) L 04/07/22 02:50 BUN/Creatinine Ratio 28.7 RATIO (10-20) H 04/07/22 02:50 Glucose 109 mg/dL (74-106) H 04/07/22 02:50 Vancomycin Trough 23.1 ug/mL (5.0-15.0) H 04/07/22 02:50 Microbiology: Microbiology 04/05/22 Unknown Interface Orders Gram Stain - Final 04/05/22 Unknown Interface Orders Wound Culture - Preliminary Mixed Gram Pos & Gram Neg Org 04/05/22 15:10 Wound Abcess - Hip Gram Stain - Final 04/05/22 15:10 Wound Abcess - Hip Wound Culture - Preliminary Gram negative odin Gram positive organism 04/05/22 12:00 Urine Catheter - Catheter Urine Culture - Preliminary Gram negative odin Gram negative odin#2 Weight used for dosin.9 kg Estimated Creatinine Clearance: 48.7 Goal Trough: 15-20 mcg/mL Pharmacy Plan for Drug Dosing: Vancomycin trough level was high at 23.1 (an 11.75hr trough). Current dosing was halted, and another level was ordered in 12 hours. Pharmacy will determine further dosing from that result. Pharmacy Service will continue to monitor and adjust dosing as required. Follow-Up Labs: Trough Vancomycin Labs to be done on [date and time ordered]: 04/07/22 @1500
[2022-04-07] MEDS: Ferrous Sulfate 325 MG Tablet PO (07:54)
[2022-04-07] MEDS: Juven (unflavored) Packet 1 PACKET PO ×2 (07:54→17:54)
[2022-04-07] MEDS: Multivitamins,Ther W-Minerals Tablet 1 TABLET PO (07:54)
[2022-04-07] MEDS: Pantoprazole Sodium 20 MG Tablet PO (07:55)
[2022-04-07] MEDS: Metoprolol Tartrate 25 MG Tablet PO (07:55)
[2022-04-07] MEDS: Venlafaxine XR 150 MG Capsule PO (07:55)
[2022-04-07] MEDS: Tolterodine Tartrate 2 MG CAP.SA PO (08:20)
[2022-04-07] MEDS: Pregabalin 50 MG Capsule PO (08:20)
[2022-04-07] MEDS: Enoxaparin 40 MG/0.4 ML Syringe SC (08:20)
[2022-04-07] MEDS: Nystatin Powder 15gm Bottle 1 APPLIC TOPICAL ×2 (08:21→21:16)
--- NOTE | 2022-04-07 11:09 | PN.ID_ITS ---
Physical Exam Narrative Feeling better, no fever, no n/v/d. Const alert and no apparent distress General Appearance: cooperative Resp normal air movement and clear to auscultation bilaterally Cardio regular rate and regular rhythm GI soft to palpation, non-tender and non-distended Skin Skin Narrative: no new rash ID ID: Route of nutrition/ use of supplements: [] Nutritional Intake: [] IV Site: [] Henry Catheter: [] Assessment & Plan Assessment/Plan (1) Fever: PLAN: Feeling better, cxs with polymicrobial growth from urine and wounds. CT showed chronic sacral osteo, treated for it back in . Wound care consulted. Urology following. Likely will need picc and 6 weeks abx. Maxim muhammad follow cx data. Will follow (2) UTI (urinary tract infection): (3) Chronic osteomyelitis of sacrum:
--- NOTE | 2022-04-07 11:32 | PN.HOSP_ITS ---
Subjective Subjective Patient indicates she is feeling better overall. No fevers in the last 48 hours. Patient is frustrated because she is on a calorie count diet. States she had been diabetic previously but most recent A1c's have been in the 5 ranges and she is off all medications. Objective Data Objective Data Vital Signs: Vital Signs Temp Pulse Resp BP Pulse Ox 97.5 F L 66 18 119/47 L 100 04/07/22 07:51 04/07/22 07:55 04/07/22 07:51 04/07/22 07:51 04/07/22 07:51 Oxygen Flow Rate (L/min) 2 Oxygen Delivery Method Nasal Cannula Weight: 101.877 kg Body Mass Index (BMI) 35.2 Intake & Output: Intake and Output for Last 24 Hours 04/05/22 04/06/22 04/07/22 23:59 23:59 23:59 Intake Total 780 / 780 546.50 / 546.50 800 / 800 Output Total 250 / 600 1500 / 1500 450 / 450 Balance 530 / 180 -953.50 / -953.50 350 / 350 Lab / Micro Data Result Diagrams: 04/07/22 02:50 04/07/22 02:50 Labs: Laboratory Results - last 24 hr 04/07/22 02:50: Vancomycin Trough 23.1 H 04/07/22 02:50: WBC 3.7 L, RBC 3.13 L, Hgb 8.3 L, Hct 28.3 L, MCV 90.4, MCH 26.5 L, MCHC 29.3 L, RDW Std Deviation 60.6 H, RDW Coeff of Jessi 18.4 H, Plt Count 260, MPV 9.1, Immature Gran % (Auto) 0.800, Neut % (Auto) 58.4, Lymph % (Auto) 17.7 L, [place] % (Auto) 12.5 H, Eos % (Auto) 10.1 H, Baso % (Auto) 0.5, Absolute Neuts (auto) 2.2, Absolute Lymphs (auto) 0.65 L, Nucleated RBC % 0 04/07/22 02:50: Sodium 138, Potassium 4.0, Chloride 106, Carbon Dioxide 29.0, Anion Gap 3 L, BUN 35 H, Creatinine 1.22 H, Estim Creat Clear Calc 38.75, Est GFR (MDRD) Af Amer 55 L, Est GFR (MDRD) Non-Af 46 L, BUN/Creatinine Ratio 28.7 H , Glucose 109 H, Calcium 9.2 Micro: Microbiology 04/05/22 Unknown Interface Orders Gram Stain - Final 04/05/22 Unknown Interface Orders Wound Culture - Preliminary Gram negative odin Gram negative odin#2 Gram negative odin#3 GPC Poss Enterococcus sp Gram positive organism 04/05/22 15:10 Wound Abcess - Hip Gram Stain - Final 04/05/22 15:10 Wound Abcess - Hip Wound Culture - Preliminary Proteus mirabilis Gram positive odin 04/05/22 12:00 Blood Culture (Wb) - Arm Left Blood Culture - Preliminary No growth in 48 hours. 04/05/22 11:30 Blood Culture (Wb) - Right Forearm Blood Culture - Preliminary No growth in 48 hours. 04/05/22 12:00 Urine Catheter - Catheter Urine Culture - Preliminary Gram negative odin Gram negative odin#2 Physical Exam Const alert, oriented x3 and no apparent distress Constitutional Narrative: Obese, elderly, white female lying in bed, appears comfortable, nontoxic, patient is eating breakfast and watching television General Appearance: cooperative Exam Limitations: no limitations Nutritional Appearance: obese HEENT normocephalic, head/scalp atraumatic, hearing grossly normal bilaterally and moist oral mucous membranes Head and Scalp: normocephalic Resp normal respiratory effort, no retractions, no use of accessory muscles and clear to auscultation bilaterally Resp Narrative: Distant but clear secondary to body habitus Auscultation: Negative for crackles, rales, rhonchi or wheezes Cardio regular rate, regular rhythm, S1 normal heart sound, S2 normal heart sound, no murmurs, no rub, no gallops, no clicks and no JVD GI normal to inspection, nondistended, normoactive bowel sounds, soft to palpation, non-tender, non-distended and hepatosplenomegaly GI Narrative: Large abdomen Extremity no clubbing, cyanosis or edema Peripheral Pulses: Yes pulses 2+ throughout Neuro oriented x3, moves all extremities and no focal motor deficits Neuro Narrative: Severe bilateral lower extremity weakness but no focal deficits Sensorium / Orientation: awake and alert Speech: speech normal Assessment & Plan Assessment/Plan (1) Fever: (2) UTI (urinary tract infection): (3) Decubitus ulcer: (4) Suprapubic catheter: (5) Chronic osteomyelitis of sacrum: PLAN: Complicated urinary tract infection -Patient with history of nephrostomy tube on left with chronic suprapubic catheter -Urine culture is currently growing 2 organisms that are gram-negative rods--> both identifications are still pending -Continue vancomycin and Zosyn -Blood cultures are negative -Patient is on fosfomycin at baseline for prophylaxis and per her discussion with nursing facility she has been getting this on a regular basis as prescribed--> she states she is still skeptical -CT of the abdomen pelvis shows no intra-abdominal abnormalities and only chr onic osteo at the sacrum -Suprapubic catheter has been changed Chronic decubitus ulcer with chronic osteomyelitis -cultures obtained -Currently growing 3 gram-negative rods, possible Enterococcus, and another gram-positive organism -Continue broad-spectrum antibiotics and await finalized cultures to narrow antibiotics -Infectious diseases following -Wound care is being addressed by bedside nursing as wound care nurse is out this week Left back wound from nephrostomy site -Recent I&D of the area -Culture shows Proteus and gram-positive rods with pending identification -Antibiotics as above -Wound care is being addressed by bedside nursing as wound care nurse is out this week Fever -Resolved Chronic normocytic anemia -Counts relatively stable -Monitor -CBC in a.m. -Patient is on iron supplementation at baseline we will continue -No signs of acute blood loss CKD stage IIIa -Estimated GFR is 58 and appears this is her baseline -Current serum creatinine 0.99 Hypertension -Continue metoprolol Neuropathy -Continue pregabalin GERD -Continue omeprazole Chronic pain/debility -Continue as needed acetaminophen -Continue home methadone -Continue home bowel regimen -PT/OT consultation pending -Patient is fairly immobile at baseline and does not ambulate Depression -Continue Effexor DVT prophylaxis -Lovenox -SCDs CODE STATUS -Full code as per discussion with the patient the emergency department Disposition: -Awaiting cultures to finalize-patient will need PICC per discussion with ID and this has been ordered to be placed today or tomorrow--> anticipate return to facility tomorrow once we can finalize antibiotics
--- NOTE | 2022-04-07 17:34 | PCM.RX.CS ---
Consult Pharmacy has been consulted to manage selected antiobiotic: Vancomycin Type of Consult: Follow-up Suspected Infection: Osteomyelitis Prior Doses of Antibiotics Received/Current Regimen: Patient had been on 1gm iv q12h. Held ~0300 5.26 due to high trough level of 23.1. Labs: Sodium 138 mmol/L (136-145) 04/07/22 02:50 Potassium 4.0 mmol/L (3.5-5.1) 04/07/22 02:50 Chloride 106 mmol/L (98-107) 04/07/22 02:50 Carbon Dioxide 29.0 mmol/L (21.0-32.0) 04/07/22 02:50 Anion Gap 3 (5-15) L 04/07/22 02:50 BUN 35 mg/dL (7-18) H 04/07/22 02:50 Creatinine 1.22 mg/dL (0.55-1.02) H 04/07/22 02:50 Est GFR (MDRD) Af Amer 55 mL/min (>60) L 04/07/22 02:50 Est GFR (MDRD) Non-Af 46 mL/min (>60) L 04/07/22 02:50 BUN/Creatinine Ratio 28.7 RATIO (10-20) H 04/07/22 02:50 Glucose 109 mg/dL (74-106) H 04/07/22 02:50 Vancomycin Trough 23.1 ug/mL (5.0-15.0) H 04/07/22 02:50 Random Vancomycin 25.0 ug/mL (0.0-15.0) H 04/07/22 14:55 Microbiology: Microbiology 04/05/22 Unknown Interface Orders Gram Stain - Final 04/05/22 Unknown Interface Orders Wound Culture - Preliminary Gram negative odin Gram negative odin#2 Gram negative odin#3 GPC Poss Enterococcus sp Gram positive organism 04/05/22 15:10 Wound Abcess - Hip Gram Stain - Final 04/05/22 15:10 Wound Abcess - Hip Wound Culture - Preliminary Proteus mirabilis Gram positive odin 04/05/22 12:00 Blood Culture (Wb) - Arm Left Blood Culture - Preliminary No growth in 48 hours. 04/05/22 11:30 Blood Culture (Wb) - Right Forearm Blood Culture - Preliminary No growth in 48 hours. 04/05/22 12:00 Urine Catheter - Catheter Urine Culture - Preliminary Gram negative odin Gram negative odin#2 Weight used for dosin.9 kg Estimated Creatinine Clearance: ~49ml/min Goal Trough: 15-20 mcg/mL Pharmacy Plan for Drug Dosing: Today's trough was still elevated at 25. No further dosing to be given until level <20. Have ordered a random level to be done in 24hrs. Pharmacy Service will continue to monitor and adjust dosing as required. Follow-Up Labs: Trough Vancomycin - random level @1500 5.27.22
[2022-04-07] MEDS: Acetaminophen 325 MG Tablet 650 MG PO (21:15)
[2022-04-08] VITALS (7 sets, daily range): BP systolic 97–107; BP diastolic 45–49; PULSE 74–79; RESP 16–18; TEMP 36.7–36.8; O2SAT 98–100
[2022-04-08 06:47] LABS: Anion Gap 6 (5-15); BUN 41 mg/dL (7-18); BUN/Creat Ratio 33.3 RATIO (10-20); Calcium,Total 8.8 mg/dL (8.5-10.1); Chloride 106 mmol/L (98-107); Creatinine, Serum 1.23 mg/dL (0.55-1.02); EST Glomerular Filtration Rate 45 mL/min (>60); Est Glom Filt Rate - Afr Amer 55 mL/min (>60); Estimated Creatinine Clearance 38.43 ml/min; Glucose 96 mg/dL (74-106); Potassium 4.1 mmol/L (3.5-5.1); Sodium Level 139 mmol/L (136-145)
[2022-04-08] MEDS: Juven (unflavored) Packet 1 PACKET PO (08:53)
[2022-04-08] MEDS: Pantoprazole Sodium 20 MG Tablet PO (08:54)
[2022-04-08] MEDS: DiphenhydrAMINE 25 MG Capsule PO (08:54)
[2022-04-08] MEDS: Tolterodine Tartrate 2 MG CAP.SA PO (08:54)
[2022-04-08] MEDS: Multivitamins,Ther W-Minerals Tablet 1 TABLET PO (08:54)
[2022-04-08] MEDS: Venlafaxine XR 150 MG Capsule PO (08:54)
[2022-04-08] MEDS: Enoxaparin 40 MG/0.4 ML Syringe SC (08:54)
[2022-04-08] MEDS: Nystatin Powder 15gm Bottle 1 APPLIC TOPICAL (08:55)
[2022-04-08] MEDS: Pregabalin 50 MG Capsule PO (09:03)
--- NOTE | 2022-04-08 13:01 | DS.PCM_ITS ---
Providers Date of Admission: 04/05/22 Primary Care Physician: Dr. Colby Valenzuela, Consultations 04/05/22 16:10 Consult: Onc/Wound/pacs administrator Routine Comment: Consult: Urology Routine Consulting Provider: Rebecca Zavala Reason for Consult: suprapubic cath replacement EMERGENT Consult: No Notified: Yes Date Notified: 04/05/22 Time Notified: 14:30 Method of Notification: Text 04/05/22 18:24 Consult: Infectious Disease Routine Consulting Provider: Marshall Flores Reason for Consult: Recurrent complicated UTI on suppression and chronic OM sacrum EMERGENT Consult: No Notified: Yes Date Notified: 04/06/22 Time Notified: 18:24 Method of Notification: Text Reason For Visit: COMPLICATED UTI/FEVER Diagnosis Discharge Diagnosis (1) Fever: Status: Resolved Code(s): R50.9 - Fever, unspecified (2) UTI (urinary tract infection): Status: Acute Code(s): N39.0 - Urinary tract infection, site not specified (3) Decubitus ulcer: Status: Acute Code(s): L89.90 - Pressure ulcer of unspecified site, unspecified stage (4) Suprapubic catheter: Status: Acute Code(s): Z93.59 - Other cystostomy status (5) Chronic osteomyelitis of sacrum: Status: Chronic Code(s): M86.68 - Other chronic osteomyelitis, other site Medications at Discharge Home Medications venlafaxine 150 mg PO DAILY 07/02/19 omeprazole 20 mg PO DAILY 04/16/21 metoprolol tartrate 25 mg PO BID 07/02/21 Multiple Vitamin-Minerals 1 tab PO DAILY 09/07/21 ferrous sulfate 325 mg PO QODAY 09/07/21 bisacodyl 10 mg TN DAILY PRN 11/08/21 fluticasone propionate 1 spray INTRANASAL DAILY 11/08/21 polyethylene glycol 3350 [Miralax] 17 g PO DAILY PRN 11/08/21 acetaminophen 1,000 mg PO BID 04/05/22 diphenhydramine HCl 25 mg PO Q12H PRN PRN 04/05/22 hydroxyzine HCl 25 mg PO Q6H PRN PRN 04/05/22 loperamide [Imodium A-D] 2 mg PO Q6H PRN 04/05/22 methadone 2.5 mg PO DAILY 04/05/22 methadone 5 mg PO QHS 04/05/22 oxybutynin chloride 10 mg PO DAILY 04/05/22 pregabalin 50 mg PO DAILY 04/05/22 pregabalin 50 mg PO DAILY 04/05/22 levofloxacin 750 mg PO Q48H #20 tab 04/08/22 minocycline 100 mg PO Q12H #85 cap 04/08/22 nystatin [Nyamyc] 1 applic TOPICAL BID #0 g 04/08/22 [id number] [Zosyn in dextrose (iso-osm)] 3.375 g IV Q8H 39 Days #6581.25 ml 04/08/22 Hospital Course Summary of Care Provided Minutes Spent on Discharge: 43 Hospital Course: Mrs. Simpson is a 76-year-old white female who presented to the emergency department at [facility] from the [facility] facility at which she resides on 04/05/2022 with acute onset of fever. She had a temperature of 102 at the [facility] early on the morning of admission and they gave her a as needed Tylenol dose at 3 AM which resolved her temperature. She has a history of suprapubic catheter and previous left nephrostomy tube which was placed for an abscess. She indicates her most recent suprapubic catheter change was at least 2 months ago if not more. She reported she had an infected nephrostomy tube site previously and had an open sore on her left flank which has had several I&D's recently. She has been on and off of oral antibiotics for this. She also noted she has a chronic sacral decubitus with chronic osteomyelitis in that area and states that it heals but breaks down very easily. She indicated she was at her baseline prior to the morning of admission. On the morning of admission she reported fever with associated body aches and malaise. She had no other significant symptoms. Her urine was quite purulent with significant sediment and her UA was concerning for infection. In the emergency department she was treated with vancomycin and Zosyn. She was admitted to the medical surgical floor. Her vital signs at the time of admission showed a temperature of 98.4, pulse of 75, blood pressure of 138/91, respiratory rate of 12 and oxygen saturation was 97% on room air. Her CBC showed a normal white count with a chronic stable anemia and normal platelets. She did have a left shift with an 88% neutrophil count. Coags was normal. Her chemistry panel was unremarkable. A lactic acid was obtained and found to be 1.6. LFTs were normal. Her urine was quite turbid with positive nitrite, leukoesterase and greater than 100 white cells per high-powered field. I was able to obtain cultures of the nephrostomy wound site and the decubitus prior to admission as well. She was admitted to medical surgical floor maintained on IV antibiotics. Consultations to infectious disease and urology were placed. Urology performed a catheter exchange on the a.m. of 04/06/2022. I have requested catheter changes to be perf ormed every 4 weeks at the facility she is residing. All cultures showed polymicrobial growth with urine culture showing Pseudomonas and Klebsiella, the nephrostomy site wound showing Proteus, Pseudomonas, and a gram-positive odin; in the sacral pressure wound showing multidrug-resistant Acinetobact er/Pseudomonas/Klebsiella/Enterococcus-not VRE/staph hominis. A right upper extremity was PICC was placed in the anticipation of her need for IV antibiotics at discharge. PICC placement was on 04/07/2022. Sensitivities were reviewed by infectious disease and she was discharged on Zosyn, minocycline, and Levaquin. She was able to be discharged back to her skilled facility on 04/08/2022. She had no further fever since the day of her admission and was doing quite well from a medical standpoint. Her suppressive fosfomycin was discontinued on discharge. She is to follow-up with infectious disease in 2 weeks and I have recommended follow-up with her primary care physician within the next 1 to 2 weeks. Discharge diagnoses: Complicated urinary tract infection Infected chronic pressure ulcer with chronic osteomyelitis Infected nephrostomy tube site Fever-resolved Chronic normocytic anemia CKD stage IIIa Hypertension Neuropathy GERD Chronic pain Debility Depression Physical Exam Const alert, oriented x3 and no apparent distress Constitutional Narrative: Obese, elderly, white female, appears comfortable, nontoxic, sitting up in bed watching television General Appearance: cooperative, comfortable, well kempt and well developed Orientation / Consciousness: awake Exam Limitations: no limitations Nutritional Appearance: obese HEENT normocephalic, head/scalp atraumatic, hearing grossly normal bilaterally and moist oral mucous membranes HEENT Narrative: Mallampati 3, no thrush Eyes PERRL and EOMs intact bilaterally Eyes Narrative: Conjunctiva are mildly pale, no scleral icterus Neck no lymphadenopathy, supple, no JVD and no carotid bruits Neck Narrative: Trachea midline, no thyroid enlargement, neck is short and thick Resp normal respiratory effort, no retractions, no use of accessory muscles and clear to auscultation bilaterally Resp Narrative: Distant but clear secondary to body habitus Auscultation: Negative for crackles, rales, rhonchi or wheezes Cardio regular rate, regular rhythm, S1 normal heart sound, S2 normal heart sound, no murmurs, no rub, no gallops, no clicks and no JVD GI normal to inspection, nondistended, normoactive bowel sounds, soft to palpation, non-tender, non-distended and hepatosplenomegaly GI Narrative: Large abdomen, suprapubic catheter in place with some drainage around with yeast Extremity no clubbing, cyanosis or edema Extremity Narrative: 2+ pedal pulses, plantar flexion contractures bilateral lower extremities, right upper extremity PICC in place-dressing is clean and dry/intact Skin skin turgor normal and no jaundice Skin Narrative: Wound on left back/flank area currently packed, very minimal purulent drainage, sacral wound that is unstageable approximately the size of a tennis ball with no acute signs of infections-appears very clean Neuro oriented x3, CN's II-XII intact bilaterally, moves all extremities, no focal motor deficits and No no sensory deficits noted Neuro Narrative: Severe bilateral lower extremity weakness especially lower extremity but no focal deficits Sensorium / Orientation: awake and alert Speech: speech normal Psych affect normal Psych Narrative: Appropriately interactive very pleasant Weight / BMI Weight Weight: 101.877 kg Body Mass Index (BMI) 35.2 ABG / Lab / Microbiology Data Result Diagrams: 04/07/22 02:50 04/08/22 06:00 Laboratory: Laboratory Results - last 24 hr 04/07/22 14:55: Random Vancomycin 25.0 H 04/08/22 06:00: Sodium 139, Potassium 4.1, Chloride 106, Carbon Dioxide 27.0, Anion Gap 6, BUN 41 H, Creatinine 1.23 H, Estim Creat Clear Calc 38.43, Est GFR (MDRD) Af Amer 55 L, Est GFR (MDRD) Non-Af 45 L, BUN/Creatinine Ratio 33.3 H, Glucose 96, Calcium 8.8 Microbiology: Microbiology 04/05/22 Unknown Interface Orders Gram Stain - Final 04/05/22 Unknown Interface Orders Wound Culture - Preliminary Acinetobacter baumannii Pseudomonas aeroginosa Klebsiella pneumoniae sp pneum Enterococcus faecalis Staphylococcus hominis hominis 04/05/22 15:10 Wound Abcess - Hip Gram Stain - Final 04/05/22 15:10 Wound Abcess - Hip Wound Culture - Preliminary Proteus mirabilis Pseudomonas aeroginosa Gram positive odin 04/05/22 12:00 Urine Catheter - Catheter Urine Culture - Preliminary Pseudomonas aeroginosa Klebsiella pneumoniae sp pneum 04/05/22 12:00 Blood Culture (Wb) - Arm Left Blood Culture - Preliminary No growth in 48 hours. 04/05/22 11:30 Blood Culture (Wb) - Right Forearm Blood Culture - Preliminary No growth in 48 hours. Meaningful Use Info Meaningful Use Diagnoses (Choose all that apply): None applicable Discharge Plan Admission Admit Date/Time: 04/05/22 14:23 Attending Provider: Racheal Sosa Primary Care Provider: Colby Valenzuela Consulting Providers: Rebecca Zavala ; Marshall Flores Discharge Orders/Prescriptions Prescriptions: New Zosyn in dextrose (iso-osm) 3.375 gram/50 mL piggyback 3.375 g IV Q8H 39 Days Qty: 6581.25 RF: 0 minocycline 100 mg capsule 100 mg PO Q12H Qty: 85 RF: 0 levofloxacin 750 mg tablet 750 mg PO Q48H Qty: 20 RF: 0 nystatin [Nyamyc] 100,000 unit/gram Powder 1 applic topical BID Qty: 0 RF: 0 Continued venlafaxine 150 MG capsule 150 mg PO DAILY RF: 0 omeprazole 20 mg Capsule,Delayed Release(Dr/Ec) 20 mg PO DAILY RF: 0 metoprolol tartrate 25 mg Tablet 25 mg PO BID RF: 0 ferrous sulfate 325 mg (65 mg iron) Tablet 325 mg PO QODAY RF: 0 Multiple Vitamin-Minerals Tablet 1 tab PO DAILY RF: 0 polyethylene glycol 3350 [Miralax] 17 gram Powder In Packet 17 g PO DAILY PRN (Reason: Constipation) RF: 0 bisacodyl 10 mg Suppository 10 mg TN DAILY PRN (Reason: Constipation) RF: 0 fluticasone propionate 50 mcg/actuation [place],Suspension 1 spray INTRANASAL DAILY RF: 0 acetaminophen 500 MG tablet 1,000 mg PO BID RF: 0 methadone 5 mg tablet 2.5 mg PO DAILY RF: 0 oxybutynin chloride 10 mg tablet extended release 24hr 10 mg PO DAILY RF: 0 hydroxyzine HCl 25 mg tablet 25 mg PO Q6H PRN PRN (Reason: Itching) RF: 0 methadone 5 mg tablet 5 mg PO QHS RF: 0 pregabalin 50 mg capsule 50 mg PO DAILY RF: 0 loperamide [Imodium A-D] 2 mg Capsule 2 mg PO Q6H PRN (Reason: diarhea) RF: 0 pregabalin 50 mg capsule 50 mg PO DAILY RF: 0 diphenhydramine HCl 25 mg Capsule 25 mg PO Q12H PRN PRN (Reason: Itching) RF: 0 Discontinued fosfomycin tromethamine 3 gram Packet 1 packet PO QWEEK RF: 0 Referrals / Follow Up: Colby Valenzuela DO [Primary Care Provider] - Within 2 Weeks Marshall Flores MD [STAFF PHYSICIAN] - Within 2 Weeks Disposition Disposition (needs filled in before D/C Order can be placed): Alf Facility Charges/Coding Visit Charges Inpatient E&M: 21654 SNF Disch >30 Min
--- NOTE | 2022-04-08 13:12 | PN.ID_ITS ---
Physical Exam Narrative Feeling ok, picc placed, no fever Const alert and no apparent distress General Appearance: cooperative Resp normal air movement and clear to auscultation bilaterally Cardio regular rate and regular rhythm GI soft to palpation, non-tender and non-distended Skin Skin Narrative: no new rash ID ID: Route of nutrition/ use of supplements: [] Nutritional Intake: [] IV Site: [] Henry Catheter: [] Assessment & Plan Assessment/Plan (1) Fever: PLAN: Feeling better, cxs with polymicrobial growth from urine and wounds. Wound cx with MDR AcB, PsA, klebs, MS-CoNS, e faecalis. Ucx with PsA, klebs. Plan on 6 weeks iv zosyn with po levaquin and minocycline. Requested addition al susceptibilities from lab. ID followup in 2 weeks, wrote rx, d/w primary team. Will follow (2) UTI (urinary tract infection): (3) Chronic osteomyelitis of sacrum:
[2022-04-08] MEDS: levoFLOXacin 750 MG Tablet PO (13:51)
[2022-04-08] MEDS: Doxycycline 100 MG CAPSULE PO (13:51)
--- NOTE | 2022-04-08 13:58 | PCM.TXEXTCAR ---
Diet 04/07/22 10:09 Diet: Cardiac - Heart Healthy Is pt able to select menu?: Yes Routine Orders/Code Status O2 Frequency: PRN Keep PO Greater than or Equal to (%): 92 Routine Lab Work: CBC (Weekly while on antibiotics) and BMP (Weekly while on antibiotics) Code Status: Full Code Wound(s) lt flank: Wound Type: Abscess coccyx: Wound Type: Pressure Injury Problem/Diagnosis (1) Fever: Status: Resolved (2) UTI (urinary tract infection): Status: Acute (3) Chronic osteomyelitis of sacrum: Status: Chronic Allergies/Procedures Done in Hospital Allergies adhesive tape Allergy (Verified 04/05/22 10:55) blisters Influenza Virus Vaccines Allergy (Verified 04/05/22 10:55) shortness of breath/severe wheezing iron Allergy (Verified 04/05/22 10:55) from IV form chest pressure and heart palpitations Sulfa (Sulfonamide Antibiotics) Allergy (Verified 04/05/22 10:55) Shortness of breath bactrim does not work for her-per pcp paperwork meloxicam [From Mobic] Adverse Reaction (Verified 04/05/22 10:55) gi upset seasonal allergies Allergy (Uncoded 04/05/22 10:55) Other Procedures: None and - (Suprapubic catheter exchange) Type of Care/Length of Stay Estimated LOS: More Than 30 Days Type of Care Needed: Intermediate Rehab Potential: Poor Prognosis: Fair Additional Orders/Day of Discharge Additional Orders: Sterile suprapubic catheter changes every 4 weeks Day of Discharge: 04/08/22 Dietary and Speech Recommendations Dietitian Recommendations/Changes: Cardiac - Heart Healthy diet John BID mixed with cranberry juice Discharge Plan Admission Admit Date/Time: 04/05/22 14:23 Attending Provider: Racheal Sosa Primary Care Provider: Colby Valenzuela Consulting Providers: Rebecca Zavala ; Marshall Flores Discharge Orders/Prescriptions Prescriptions: New Zosyn in dextrose (iso-osm) 3.375 gram/50 mL piggyback 3.375 g IV Q8H 39 Days Qty: 6581.25 RF: 0 minocycline 100 mg capsule 100 mg PO Q12H Qty: 85 RF: 0 levofloxacin 750 mg tablet 750 mg PO Q48H Qty: 20 RF: 0 nystatin [Nyamyc] 100,000 unit/gram Powder 1 applic topical BID Qty: 0 RF: 0 Continued venlafaxine 150 MG capsule 150 mg PO DAILY RF: 0 omeprazole 20 mg Capsule,Delayed Release(Dr/Ec) 20 mg PO DAILY RF: 0 metoprolol tartrate 25 mg Tablet 25 mg PO BID RF: 0 ferrous sulfate 325 mg (65 mg iron) Tablet 325 mg PO QODAY RF: 0 Multiple Vitamin-Minerals Tablet 1 tab PO DAILY RF: 0 polyethylene glycol 3350 [Miralax] 17 gram Powder In Packet 17 g PO DAILY PRN (Reason: Constipation) RF: 0 bisacodyl 10 mg Suppository 10 mg [place] DAILY PRN (Reason: Constipation) RF: 0 fluticasone propionate 50 mcg/actuation [place],Suspension 1 spray INTRANASAL DAILY RF: 0 acetaminophen 500 MG tablet 1,000 mg PO BID RF: 0 methadone 5 mg tablet 2.5 mg PO DAILY RF: 0 oxybutynin chloride 10 mg tablet extended release 24hr 10 mg PO DAILY RF: 0 hydroxyzine HCl 25 mg tablet 25 mg PO Q6H PRN PRN (Reason: Itching) RF: 0 methadone 5 mg tablet 5 mg PO QHS RF: 0 pregabalin 50 mg capsule 50 mg PO DAILY RF: 0 loperamide [Imodium A-D] 2 mg Capsule 2 mg PO Q6H PRN (Reason: diarhea) RF: 0 pregabalin 50 mg capsule 50 mg PO DAILY RF: 0 diphenhydramine HCl 25 mg Capsule 25 mg PO Q12H PRN PRN (Reason: Itching) RF: 0 Discontinued fosfomycin tromethamine 3 gram Packet 1 packet PO QWEEK RF: 0 Referrals / Follow Up: Colby Valenzuela DO [Primary Care Provider] -
--- NOTE | 2022-04-08 14:46 | CASEMGMT ---
Social Work Per physician, pt is ready for discharge today. Orders faxed to [facility] and Adrianna at the [facility] updated on discharge and time. Transportation arranged with [facility] for 4:00 pickup via cot. Pt notified and agreeable to discharge. Pt denies SW call sister as she will call and update. Plan: [facility], intermediate Level of Care JUAN Sarmiento
--- NOTE | 2022-04-08 15:00 | CHAPLAIN ---
Type of Pastoral Visit ___ Initial Visit _x__ Follow-up Visit ___ On-call Visit ___ General Patient Visit ___ Spiritual Assessment ___ Family Conference ___ Bereavement ___ Rapid Response ___ Code Blue ___ Other (describe below) Pastoral Care Referral From _x__ Patient ___ Family ___ Nurse ___ Physician ___ Outpatient Admitting Clerk ___ Brewery Cellar Worker ___ Other (describe below) Sacrament/Intervention _x__ Active listening ___ Anointing ___ Taoist ___ Bereavement ___ Communion ___ Diane exploration ___ _x__ Life review ___ Prayer ___ Reconciliation ___ Sacrament of Sick _x__ Supportive presence ___ Wedding ___ Other (describe below) Pastoral Comments patient was finishing her meal; pt needed help opening her packet of dressing; pt talks about her experience at [facility] and that she is unhappy there; gave presence, listening ear, and compassionate understanding
--- NOTE | 2022-04-08 15:40 | NURSING ---
Report called to nurse [facility].
== END 2022-04-08 16:10 | disposition skilled nursing facility (03) | DRG 699 ==
LOC: ED 14:41 → MS3 14:43
PROVIDERS: Hospitalist; Admitting Provider Internal Medicine; Emergency Provider Emergency Medicine; PCP Family Medicine; Visit Provider Internal Medicine
DX: T83.518A Infection and inflammatory reaction due to other urinary catheter, initial encounter (principal); N39.0 Urinary tract infection, site not specified; M86.68 Other chronic osteomyelitis, other site; L02.212 Cutaneous abscess of back [any part, except buttock and flank]; L89.150 Pressure ulcer of sacral region, unstageable; D63.1 Anemia in chronic kidney disease; E11.22 Type 2 diabetes mellitus with diabetic chronic kidney disease; E11.40 Type 2 diabetes mellitus with diabetic neuropathy, unspecified; E11.69 Type 2 diabetes mellitus with other specified complication; T83.512A Infection and inflammatory reaction due to nephrostomy catheter, initial encounter; E66.01 Morbid (severe) obesity due to excess calories; N18.31 Chronic kidney disease, stage 3a; Z93.6 Other artificial openings of urinary tract status; B96.5 Pseudomonas (aeruginosa) (mallei) (pseudomallei) as the cause of diseases classified elsewhere; B96.1 Klebsiella pneumoniae [K. pneumoniae] as the cause of diseases classified elsewhere; K21.9 Gastro-esophageal reflux disease without esophagitis; E78.5 Hyperlipidemia, unspecified; B96.4 Proteus (mirabilis) (morganii) as the cause of diseases classified elsewhere; B95.2 Enterococcus as the cause of diseases classified elsewhere; B96.89 Other specified bacterial agents as the cause of diseases classified elsewhere; I12.9 Hypertensive chronic kidney disease with stage 1 through stage 4 chronic kidney disease, or unspecified chronic kidney disease; F32.A Depression, unspecified; R53.81 Other malaise; G89.29 Other chronic pain; Z68.35 Body mass index [BMI] 35.0-35.9, adult; Z99.3 Dependence on wheelchair; Z79.899 Other long term (current) drug therapy
CPT/HCPCS: 36415; 36569; 71045; 74176; 80048; 80053; 80202; 81001; 83605; 83735; 84100; 85025; 85610; 85730; 87040; 87070; 87077; 87086; 87088; 87184; 87186; 87205; 87426; 87640; 93005; 97162; 97166; 97530; 97802; 99251; 99285; J7040; J7050; A4216; G0463

== ENCOUNTER 2022-05-12 02:46 | Emergency (ER) | payer MEDICARE, OTHER, MEDICAID, SELFPAY ==
[2022-05-12 02:48] VITALS: BP 123/63; PULSE 70; RESP 18; TEMP 36.9; O2SAT 98; BMI 37.1
--- NOTE | 2022-05-12 03:04 | EDS_ITS ---
HPI History of Present Illness Chief Complaint: Wound Check Informant: patient Narrative Narrative: 76-year-old female presents for the evaluation of her PICC line. Patient is currently receiving IV antibiotics for complicated UTI. She states that the past 2 time she has received her antibiotics she has felt the cold going into her arm and noticed that the PICC line tonight seem to be out of her arm about 3 to 4 cm more than it had been. She is concerned about the position. [facility] sent her in stating that the PICC line had come out and she needed new one placed. 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 Kidney calculus Morbid obesity Nephrostomy complication Nephrostomy tube displaced VITA (obstructive sleep apnea) VITA (obstructive sleep apnea) Pressure ulcer of coccygeal region, stage 3 Pyonephrosis Recurrent UTI Renal calculus, bilateral Severe sepsis Suprapubic catheter Ulcer of abdomen wall with fat layer exposed Ulcer of left groin with fat layer exposed UTI (urinary tract infection) due to urinary indwelling catheter V tach Home Medications venlafaxine 150 mg capsule,extended release 24 hr 150 mg PO DAILY depression 07/02/19 [History Last Taken 04/05/22] omeprazole 20 mg capsule,delayed release 20 mg PO DAILY heartburn 04/16/21 [History Last Taken 04/05/22] metoprolol tartrate 25 mg tablet 25 mg PO BID bp 07/02/21 [History Last Taken 04/05/22] ferrous sulfate 325 mg (65 mg iron) tablet 325 mg PO QODAY IRON 09/07/21 [History Last Taken 04/05/22] multivitamin with minerals (Multiple Vitamin-Minerals) 1 tab PO DAILY SUPPLEMENT 09/07/21 [History Last Taken 04/05/22] bisacodyl 10 mg rectal suppository 10 mg [place] DAILY PRN Constipation 11/08/21 [History Last Taken Unknown] fluticasone propionate 50 mcg/actuation nasal spray,suspension 1 spray intranasal DAILY allergies 11/08/21 [History Last Taken 04/05/22] polyethylene glycol 3350 17 gram oral powder packet (Miralax) 17 g PO DAILY PRN Constipation 11/08/21 [History Last Taken Unknown] acetaminophen 500 mg tablet 1,000 mg PO BID pain 04/05/22 [History Last Taken 04/05/22] diphenhydramine HCl 25 mg capsule 25 mg PO Q12H PRN PRN Itching 04/05/22 [History Last Taken 03/14/22] hydroxyzine HCl 25 mg tablet 25 mg PO Q6H PRN PRN Itching 04/05/22 [History Last Taken 04/04/22] loperamide 2 mg capsule (Imodium A-D) 2 mg PO Q6H PRN diarhea 04/05/22 [History Last Taken 03/31/22] methadone 5 mg tablet 2.5 mg PO DAILY pain 04/05/22 [History Last Taken 04/05/22] methadone 5 mg tablet 5 mg PO QHS pain 04/05/22 [History Last Taken 04/04/22] oxybutynin chloride 10 mg tablet,extended release 24 hr 10 mg PO DAILY bladder spasm 04/05/22 [History Last Taken 04/05/22] pregabalin 50 mg capsule 50 mg PO DAILY pain 04/05/22 [History Last Taken 04/05/22] pregabalin 50 mg capsule 50 mg PO DAILY seizures 04/05/22 [History Last Taken 04/05/22] levofloxacin 750 mg tablet 750 mg PO Q48H #20 tabs 04/08/22 [Rx Last Taken U nknown] minocycline 100 mg capsule 100 mg PO Q12H #85 caps 04/08/22 [Rx Last Taken Unknown] nystatin 100,000 unit/gram topical powder (Nyamyc) 1 applic topical BID #0 grams 04/08/22 [Rx Last Taken Unknown] piperacillin-tazobactam 3.375 gram/50 mL dextrose(iso-os) IV piggyback (Zosyn) 3.375 g (56.25 mL) IV Q8H 39 days #6,581.25 mL 04/08/22 [Rx Last Taken Unknown] Allergy/AdvReac Type Severity Reaction Status Date / Time adhesive tape Allergy blisters Verified 05/12/22 02:51 Influenza Virus Vaccines Allergy shortness Verified 05/12/22 02:51 of breath/severe wheezing iron Allergy from IV Verified 05/12/22 02:51 form chest pressure and heart palpitations Sulfa (Sulfonamide Allergy Shortness Verified 05/12/22 02:51 Antibiotics) of breath meloxicam [From Mobic] AdvReac gi upset Verified 05/12/22 02:51 seasonal allergies Allergy Other Uncoded 05/12/22 02:51 Surgical History H/O nephrostomy H/O: hysterectomy History of cholecystectomy History of tonsillectomy Hx of appendectomy Social History household members: none housing: long-term Smoking Status: Never smoker alcohol intake: never substance use type: does not use ROS ROS ED Constitutional Constitutional ED: Denies chills or weight loss Eyes Eyes: Denies change in vision or diplopia ENT ENT ED: Denies ear pain, rhinorrhea or sore throat Cardiovascular Cardiovascular: Denies chest pain, orthopnea, palpitations or racing heartbeat Respiratory/Chest Respiratory/Chest: Denies cough, dyspnea or orthopnea Gastrointestinal Gastrointestinal: Denies abdominal pain, diarrhea, nausea or vomiting Genitourinary Genitourinary ED: Denies dysuria, hematuria or urinary frequency Musculoskeletal Musculoskeletal: Denies arthralgias or myalgias Integumentary Denies abscess or rash Neurologic Neurologic: Denies headache(s) or weakness Psychiatric Psychiatric: Denies anxiety, depression, suicidal ideation or suicidal thoughts Endocrine Endocrinology: Denies polydipsia, polyphagia or polyuria Allergic/Immunologic Allergic/Immunologic ED: Denies mouth swelling, tongue swelling or urticaria EXAM Physical Exam Const Vital Signs: 05/12/22 02:48 Temperature 98.4 F Temperature Source Temporal Pulse Rate 70 Respiratory Rate 18 Blood Pressure 123/63 H Blood Pressure Mean 83 Pulse Ox 98 Oxygen Delivery Method Room Air Positive well nourished, well developed and obese General Appearance ED: well developed Nutritional Appearance: obese HEENT Reports normocephalic, head/scalp atraumatic and moist mucous membranes Eyes PERRL and EOMs intact bilaterally Neck no lymphadenopathy, supple and no JVD Resp normal respiratory effort and clear to auscultation bilaterally Cardio regular rate, regular rhythm and no murmurs GI normal to inspection, nondistended, normoactive bowel sounds and non-tender Palpation: soft Back/Spine no CVA tenderness and normal ROM Extremity normal to inspection Extremity Narrative: There is a PICC line in the right arm. There appears to be 3 or 4 cm of the line out of the skin before it goes to the Tegaderm. This is what the patient states has not been there before. General Extremety ED: Negative for edema General Extremity: Negative for edema Neuro oriented x3 and CN's II-XII intact bilaterally Sensorium / Orientation: alert Motor Exam: strength 5/5 throughout Psych mental status grossly normal Mood & Affect: Negative for depressed or tearful Skin no rashes or lesions noted and no wounds MDM MDM MDM Narrative Medical decision making narrative: My interpretation of the chest x-ray is that the PICC line is in the right axillary area. This is not the most optimal position for it. At this time at 3:30 in the morning I do not have a PICC line nurse that can replace this. She will be discharged back to long-term. Would recommend that they have a PICC line nurse come and reassess. Radiography Diagnostic Testing: Clinical Impression(s) from Imaging Studies Chest X-Ray 05/12/22 03:04 IMPRESSION: PICC in the right axilla likely in the region of the axillary vein as detailed above. No evidence of active intrathoracic disease. Electronically Signed: Shannon Navarro MD at 3:26 EDT Reading Location ID and State: [facility] / [place] Tel , Service support , Discharge Plan Triage Chief Complaint: Wound Check ED Provider: Jose Palm Dx/Rx/DC Orders Clinical Impression: Visit for wound check Prescriptions: No Action venlafaxine 150 MG capsule 150 mg PO DAILY Label Comments: TAKE ONE CAPSULE BY MOUTH TWICE DAILY omeprazole 20 mg Capsule,Delayed Release(Dr/Ec) 20 mg PO DAILY metoprolol tartrate 25 mg Tablet 25 mg PO BID ferrous sulfate 325 mg (65 mg iron) Tablet 325 mg PO QODAY Multiple Vitamin-Minerals Tablet 1 tab PO DAILY polyethylene glycol 3350 [Miralax] 17 gram Powder In Packet 17 g PO DAILY PRN (Reason: Constipation) bisacodyl 10 mg Suppository 10 mg [place] DAILY PRN (Reason: Constipation) fluticasone propionate 50 mcg/actuation [place],Suspension 1 spray INTRANASAL DAILY acetaminophen 500 MG tablet 1,000 mg PO BID methadone 5 mg tablet 2.5 mg PO DAILY oxybutynin chloride 10 mg tablet extended release 24hr 10 mg PO DAILY hydroxyzine HCl 25 mg tablet 25 mg PO Q6H PRN PRN (Reason: Itching) methadone 5 mg tablet 5 mg PO QHS pregabalin 50 mg capsule 50 mg PO DAILY loperamide [Imodium A-D] 2 mg Capsule 2 mg PO Q6H PRN (Reason: diarhea) pregabalin 50 mg capsule 50 mg PO DAILY diphenhydramine HCl 25 mg Capsule 25 mg PO Q12H PRN PRN (Reason: Itching) Zosyn in dextrose (iso-osm) 3.375 gram/50 mL piggyback 3.375 g IV Q8H 39 Days Qty: 6581.25 0RF Rx Instructions: stop date 05/17/22 dx: osteomyelitis weekly bmp, cbc, LFT, and esr. Fax to [phone] routine picc care with heparin/saline flush per protocol minocycline 100 mg capsule 100 mg PO Q12H Qty: 85 0RF Rx Instructions: First dose is 200mg, then 100mg bid after that levofloxacin 750 mg tablet 750 mg PO Q48H Qty: 20 0RF nystatin [Nyamyc] 100,000 unit/gram Powder 1 applic topical BID Qty: 0 0RF Protocol: *Topical Application Instructions APPLICATION INSTRUCTIONS: to abd folds and groin Primary Care Provider: Jacky Correa Referrals: Colby Valenzuela DO [STAFF PHYSICIAN] - Disposition Disposition: Home, Self Care
--- NOTE | 2022-05-12 03:04 | RAD_ITS ---
STUDY: X-RAY CHEST REASON FOR EXAM: Female, 76 years old. PICC Line evaluation [facility] CALLS STATING PATIENTS Tquot;PICC LINE FELL OUT AND SHE NEEDS A NEW ONETquot; ON ARRIVAL PICC LINE IS STILL IN PATIENTS ARM BUT PATIENT REPORTS IS OUT A COUPLE CM TECHNIQUE: AP portable. 3:08 AM. COMPARISON: 04/05/2022. FINDINGS: LINES/DEVICES: PICC from right brachial approach tip overlying the right axilla in the region of the axillary vein, does not extend to the chest. LUNGS: No consolidation. No pneumothorax. MEDIASTINUM: Aorta atherosclerotic. CARDIAC SILHOUETTE: Not enlarged. BONES AND SOFT TISSUES: No acute abnormalities. RAD/Chest 1 View (Portable) IMPRESSION: PICC in the right axilla likely in the region of the axillary vein as detailed above. No evidence of active intrathoracic disease. Electronically Signed: Shannon Navarro MD at 3:26 EDT ,
--- NOTE | 2022-05-12 03:37 | ED.RN ---
[facility] and gave report on patient coming back. They are aware the picc line is not in the correct spot and states they will call in the company to insert a new one or advance current one. Will send xray read back with patient. Pt aware of plan as well. Patient and nurse made aware that trasnport ETA is approx 3 hours.
[2022-05-12 04:53] VITALS: BP 127/59; PULSE 72; RESP 19; O2SAT 97
== END 2022-05-12 06:00 | disposition skilled nursing facility (03) ==
PROVIDERS: Emergency Provider Emergency Medicine; PCP Family Medicine; Visit Provider Emergency Medicine
DX: Z45.2 Encounter for adjustment and management of vascular access device (principal); I13.0 Hypertensive heart and chronic kidney disease with heart failure and stage 1 through stage 4 chronic kidney disease, or unspecified chronic kidney disease; I50.9 Heart failure, unspecified; E66.01 Morbid (severe) obesity due to excess calories; N18.9 Chronic kidney disease, unspecified; K21.9 Gastro-esophageal reflux disease without esophagitis; F32.A Depression, unspecified; Z68.37 Body mass index [BMI] 37.0-37.9, adult; Z79.899 Other long term (current) drug therapy; Z87.440 Personal history of urinary (tract) infections
CPT/HCPCS: 71045; 99284

== ENCOUNTER 2022-05-13 16:36 | Observation (INO) | payer MEDICARE, OTHER, MEDICAID, SELFPAY ==
[2022-05-13 16:40] VITALS: BP 153/96; PULSE 116; RESP 16; TEMP 36.4; O2SAT 95; BMI 37.0
--- NOTE | 2022-05-13 17:22 | EKG12_ITS ---
Test Reason : Blood Pressure : / mmHG Vent. Rate : 114 BPM Atrial Rate : 114 BPM P-R Int : 136 ms QRS Dur : 086 ms QT Int : 392 ms P-R-T Axes : 000 090 073 degrees QTc Int : 540 ms Sinus tachycardia with Premature atrial complexes Prolonged QT Poor R wave progression Anterior OR, age undetermined, cannot be excluded Nonspecific ST and T wave abnormality Abnormal ECG Confirmed by SEBASTIÁN THOMPSON, KENNEDY ([id number]), social media editor BROOKS WIGGINS ([id number]) on 05/17/2022 10:04:27 AM Referred By: Confirmed By:KENNEDY LOWERY MD
--- NOTE | 2022-05-13 17:23 | EX.ED.DYSGE1 ---
HPI History of Present Illness Chief Complaint: Nausea/Vomiting/Diarrhea Informant: patient Onset/Context/Timing Onset: Yesterday Context: Gradual Onset Current Severity: Moderate Maximum Severity: Moderate Narrative Narrative: Patient reportedly sent in from [facility] secondary to nausea, vomiting, and diarrhea. Patient states she developed nausea and vomiting yesterday. Her stools have been soft. She denies abdominal pain or headache. No fever. She is currently receiving IV antibiotics for complicated UTI. [facility] Medical History (Updated 05/13/22 @ 19:[address] 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 Kidney calculus Morbid obesity Nephrostomy complication Nephrostomy tube displaced VITA (obstructive sleep apnea) Pressure ulcer of coccygeal region, stage 3 Pyonephrosis Recurrent UTI Renal calculus, bilateral Severe sepsis Suprapubic catheter Ulcer of abdomen wall with fat layer exposed Ulcer of left groin with fat layer exposed UTI (urinary tract infection) due to urinary indwelling catheter V tach Home Medications venlafaxine 150 mg capsule,extended release 24 hr 150 mg PO DAILY depression 07/02/19 [History Last Taken 04/05/22] omeprazole 20 mg capsule,delayed release 20 mg PO DAILY heartburn 04/16/21 [History Last Taken 04/05/22] metoprolol tartrate 25 mg tablet 25 mg PO BID bp 07/02/21 [History Last Taken 04/05/22] ferrous sulfate 325 mg (65 mg iron) tablet 325 mg PO QODAY IRON 09/07/21 [History Last Taken 04/05/22] multivitamin with minerals (Multiple Vitamin-Minerals) 1 tab PO DAILY SUPPLEMENT 09/07/21 [History Last Taken 04/05/22] bisacodyl 10 mg rectal suppository 10 mg [place] DAILY PRN Constipation 11/08/21 [History Last Taken Unknown] fluticasone propionate 50 mcg/actuation nasal spray,suspension 1 spray intranasal DAILY allergies 11/08/21 [History Last Taken 04/05/22] polyethylene glycol 3350 17 gram oral powder packet (Miralax) 17 g PO DAILY PRN Constipation 11/08/21 [History Last Taken Unknown] acetaminophen 500 mg tablet 1,000 mg PO BID pain 04/05/22 [History Last Taken 04/05/22] diphenhydramine HCl 25 mg capsule 25 mg PO Q12H PRN PRN Itching 04/05/22 [History Last Taken 03/14/22] hydroxyzine HCl 25 mg tablet 25 mg PO Q6H PRN PRN Itching 04/05/22 [History Last Taken 04/04/22] loperamide 2 mg capsule (Imodium A-D) 2 mg PO Q6H PRN diarhea 04/05/22 [History Last Taken 03/31/22] methadone 5 mg tablet 2.5 mg PO DAILY pain 04/05/22 [History Last Taken 04/05/22] methadone 5 mg tablet 5 mg PO QHS pain 04/05/22 [History Last Taken 04/04/22] oxybutynin chloride 10 mg tablet,extended release 24 hr 10 mg PO DAILY bladder spasm 04/05/22 [History Last Taken 04/05/22] pregabalin 50 mg capsule 50 mg PO DAILY pain 04/05/22 [History Last Taken 04/05/22] pregabalin 50 mg capsule 50 mg PO DAILY seizures 04/05/22 [History Last Taken 04/05/22] levofloxacin 750 mg tablet 750 mg PO Q48H #20 tabs 04/08/22 [Rx Last Taken Unknown] minocycline 100 mg capsule 100 mg PO Q12H #85 caps 04/08/22 [Rx Last Taken Unknown] nystatin 100,000 unit/gram topical powder (Nyamyc) 1 applic topical BID #0 grams 04/08/22 [Rx Last Taken Unknown] piperacillin-tazobactam 3.375 gram/50 mL dextrose(iso-os) IV piggyback (Zosyn) 3.375 g (56.25 mL) IV Q8H 39 days #6,581.25 mL 04/08/22 [Rx Last Taken Unknown] Allergy/AdvReac Type Severity Reaction Status Date / Time adhesive tape Allergy blisters Verified 05/12/22 02:51 Influenza Virus Vaccines Allergy shortness Verified 05/12/22 02:51 of breath/severe wheezing iron Allergy from IV Verified 05/12/22 02:51 form chest pressure and heart palpitations Sulfa (Sulfonamide Allergy Shortness Verified 05/12/22 02:51 Antibiotics) of breath meloxicam [From Mobic] AdvReac gi upset Verified 05/12/22 02:51 seasonal allergies Allergy Other Uncoded 05/12/22 02:51 Surgical History H/O nephrostomy H/O: hysterectomy History of cholecystectomy History of tonsillectomy Hx of appendectomy Social History household members: none housing: residential Smoking Status: Never smoker alcohol intake: never substance use type: does not use ROS ROS ED Constitutional Constitutional ED: Denies chills or fever(s) Eyes Eyes: Denies change in vision or discharge from eye(s) ENT ENT ED: Denies discharge from eye(s), rhinorrhea or sore throat Cardiovascular Cardiovascular: Denies chest pain or palpitations Respiratory/Chest Respiratory/Chest: Denies cough or dyspnea Gastrointestinal Gastrointestinal: Reports diarrhea, nausea and vomiting; Denies abdominal pain Genitourinary Genitourinary ED: Denies difficulty urinating or dysuria Musculoskeletal Musculoskeletal: Denies back pain or extremity pain Integumentary Denies Abrasions or rash Neurologic Neurologic: Reports weakness; Denies headache(s) Allergic/Immunologic Allergic/Immunologic ED: Denies lip swelling or urticaria EXAM Physical Exam Const Vital Signs: 05/13/22 16:40 05/13/22 18:54 Temperature 97.6 F L Temperature Source Temporal Pulse Rate 116 H 92 Respiratory Rate 16 14 Blood Pressure 153/96 H 160/99 H Blood Pressure Mean 115 119 Pulse Ox 95 96 Oxygen Delivery Method Room Air Room Air Positive obese Nutritional Appearance: obese HEENT Reports moist mucous membranes Eyes PERRL and EOMs intact bilaterally Neck no lymphadenopathy Chest Wall inspection of chest normal and palpation of chest normal Resp normal respiratory effort and clear to auscultation bilaterally Cardio regular rate and regular rhythm GI non-tender Auscultation: hypoactive bowel sounds Palpation: soft Extremity normal to inspection Neuro Neuro Narrative: Sleepy but arouses to voice and answers questions appropriately. MDM MDM MDM Narrative Medical decision making narrative: EKG and lab work obtained. Urinalysis ordered. Lab Data Attestation: I reviewed the patient's lab results. Labs: Laboratory Results - last 24 hr 05/13/22 05/13/22 05/13/22 17:30 17:30 18:15 WBC 11.8 H RBC 4.94 Hgb 13.2 Hct 43.0 MCV 87.0 MCH 26.7 L MCHC 30.7 L RDW Std Deviation 49.9 H RDW Coeff of Jessi 15.7 H Plt Count 249 MPV 10.1 Immature Gran % (Auto) 0.400 Neut % (Auto) 89.5 H Lymph % (Auto) 4.3 L [place] % (Auto) 5.3 Eos % (Auto) 0.2 Baso % (Auto) 0.3 Absolute Neuts (auto) 10.5 H Absolute Lymphs (auto) 0.51 L Nucleated RBC % 0 Differential Comment SEE COMMENT Platelet Estimate ADEQUATE Sodium 139 Potassium 2.6 L* Chloride 91 L Carbon Dioxide 40.0 H Anion Gap 8 BUN 34 H Creatinine 1.23 H Estim Creat Clear Calc 37.00 Est GFR (MDRD) Af Amer 55 L Est GFR (MDRD) Non-Af 45 L BUN/Creatinine Ratio 27.6 H Glucose 174 H Calcium 9.9 Total Bilirubin 0.40 Direct Bilirubin 0.18 AST 22 ALT 16 Alkaline Phosphatase 110 Total Protein 8.5 H Albumin 2.6 L Globulin 5.9 H Lipase 82 Urine Color Yellow Urine Clarity Sl. Cloudy Urine pH 6.5 Ur Specific [place] 1.015 Urine Protein 500 H Urine Glucose (UA) Normal Urine Ketones Negative Urine Occult Blood 150 H Urine Nitrite Negative Urine Bilirubin Negative Urine Urobilinogen Normal Ur Leukocyte Esterase 500 H Urine RBC 0-5 SEEN Urine WBC 25-50 SEEN Ur Squamous Epith Cells 0 SEEN Ur Renal Epithelial Cell 0-5 SEEN Urine Bacteria 0 SEEN Urine Mucus 0 SEEN EKG Initial EKG: Attestation: I personally reviewed and interpreted this EKG as follows: Interpretation: Sinus Tachycardia (Sinus tach at 114 with PACs. No acute ischemia. Prolonged QTC at 540.) Treatment and Re-Evaluation Narrative: White count is slightly elevated 11.8 with a left shift. Chemistry studies significant for a potassium of 2.6. This will be replaced via IV. Urinalysis shows 0 bacteria currently and she has been on IV antibiotics for UTI. On repeat evaluation patient is still nauseated. She has more alert at this time. She does complain of some upper and lower lip swelling that is new. She does not believe she received any new medications from the residential. In light of the fact that she has a prolonged QTC we will avoid Zofran. She will be given a small dose of Reglan and Benadryl. She will also be given a dose of steroids. I will speak with the hospitalist regarding admission. Discharge Plan Triage Chief Complaint: Nausea/Vomiting/Diarrhea ED Provider: Barbie Trammell Dx/Rx/DC Orders Clinical Impression: Vomiting, Hypokalemia, Lip swelling Prescriptions: No Action venlafaxine 150 MG capsule 150 mg PO DAILY Label Comments: TAKE ONE CAPSULE BY MOUTH TWICE DAILY omeprazole 20 mg Capsule,Delayed Release(Dr/Ec) 20 mg PO DAILY metoprolol tartrate 25 mg Tablet 25 mg PO BID ferrous sulfate 325 mg (65 mg iron) Tablet 325 mg PO QODAY Multiple Vitamin-Minerals Tablet 1 tab PO DAILY polyethylene glycol 3350 [Miralax] 17 gram Powder In Packet 17 g PO DAILY PRN (Reason: Constipation) bisacodyl 10 mg Suppository 10 mg [place] DAILY PRN (Reason: Constipation) fluticasone propionate 50 mcg/actuation [place],Suspension 1 spray INTRANASAL DAILY acetaminophen 500 MG tablet 1,000 mg PO BID methadone 5 mg tablet 2.5 mg PO DAILY oxybutynin chloride 10 mg tablet extended release 24hr 10 mg PO DAILY hydroxyzine HCl 25 mg tablet 25 mg PO Q6H PRN PRN (Reason: Itching) methadone 5 mg tablet 5 mg PO QHS pregabalin 50 mg capsule 50 mg PO DAILY loperamide [Imodium A-D] 2 mg Capsule 2 mg PO Q6H PRN (Reason: diarhea) pregabalin 50 mg capsule 50 mg PO DAILY diphenhydramine HCl 25 mg Capsule 25 mg PO Q12H PRN PRN (Reason: Itching) Zosyn in dextrose (iso-osm) 3.375 gram/50 mL piggyback 3.375 g IV Q8H 39 Days Qty: 6581.25 0RF Rx Instructions: stop date 05/17/22 dx: osteomyelitis weekly bmp, cbc, LFT, and esr. Fax to [phone] routine picc care with heparin/saline flush per protocol minocycline 100 mg capsule 100 mg PO Q12H Qty: 85 0RF Rx Instructions: First dose is 200mg, then 100mg bid after that levofloxacin 750 mg tablet 750 mg PO Q48H Qty: 20 0RF nystatin [Nyamyc] 100,000 unit/gram Powder 1 applic topical BID Qty: 0 0RF Protocol: *Topical Application Instructions APPLICATION INSTRUCTIONS: to abd folds and groin Primary Care Provider: Jacky Correa Referrals: Jacky Correa MD [Primary Care Provider] - Disposition Disposition: Acute Care Hospital [facility]
[2022-05-13 17:40] LABS: Absolute Lymphocyte Count 0.51 X10^3/uL (0.83-4.51); Absolute Neutrophil Count 10.5 X10^3/uL (2.0-7.7); Basophil# 0.03 X10^3/uL; Basophil% 0.3 % (0-1); Eosinophil# 0.02 X10^3/uL; Eosinophils% 0.2 % (0-5); Hemoglobin 13.2 g/dL (12.0-15.0); Lymphocyte # 0.51 X10^3/ul (0.83-4.51); Lymphocyte % 4.3 % (19-41); Mean Corp Hgb Conc 30.7 g/dL (32-36); Mean Corpuscular Hgb 26.7 pg (27.0-32.0); Mean Platelet Vol. 10.1 fl (6.2-12.0); Monocyte# 0.62 X10^3/uL; Monocyte% 5.3 % (0-10); NRBC Flagged by Analyzer 0 % (0-5); Neutrophil # 10.53 X10^3/uL (2.7-7.7); Neutrophil % 89.5 % (47-70); POSITIVE DIFFERENTIAL YES; Platelet Count 249 K/mm3 (150-450); RBC Distribution Width CV 15.7 % (11.6-14.6); RBC Distribution Width SD 49.9 fl (35.1-43.9); Red Blood Count 4.94 M/mm3 (4.2-5.4); White Blood Count 11.8 K/mm3 (4.4-11.0)
[2022-05-13 17:42] LABS: Differential Indicated SCAN CRITERIA MET
[2022-05-13] MEDS: 0.9% Normal Saline 1,000 ML 150 ML IV (17:43)
[2022-05-13 18:08] LABS: Platelet Estimate ADEQUATE (ADEQ)
[2022-05-13 18:20] LABS: Bacteria 0 SEEN /hpf (None Seen); Mucous, Urine 0 SEEN /hpf (<or=2+); Squamous Epithelial Cells - UA 0 SEEN /hpf (5-10)
[2022-05-13 18:23] LABS: Color, Urine Yellow (Yellow); Glucose, Dipstick Normal (Normal); Ketone-Dipstick Negative (Negative); Leukocyte Esterase-Dipstick 500 /ul (Negative); Nitrite-Dipstick Negative (Negative); Occult Blood-Urine 150 /ul (Negative); Protein-Dipstick 500 mg/dl (Negative); Specific Gravity, Urine 1.015 (1.002-1.030); Urine Bilirubin Dipstick Negative (Negative); Urine Clarity Sl. Cloudy (Clear); Urine Urobilinogen Normal (Normal); Urine pH 6.5 (5.0 - 8.0)
[2022-05-13 18:38] LABS: White Blood Cells 25-50 SEEN /hpf (0-5)
[2022-05-13 18:39] LABS: Red Blood Cells-Urine 0-5 SEEN /hpf (0-5); Renal Epithelial Cells 0-5 SEEN /hpf (0-5)
[2022-05-13 18:46] LABS: AST(SGOT) 22 U/L (15-37); Alanine Aminotransfer ALT/SGPT 16 U/L (13-56); Albumin, Serum 2.6 g/dL (3.2-5.0); Alkaline Phosphatase 110 U/L (45-117); Anion Gap 8 (5-15); BUN 34 mg/dL (7-18); BUN/Creat Ratio 27.6 RATIO (10-20); Bilirubin, Direct 0.18 mg/dL (0.00-0.30); Calcium,Total 9.9 mg/dL (8.5-10.1); Chloride 91 mmol/L (98-107); Creatinine, Serum 1.23 mg/dL (0.55-1.02); EST Glomerular Filtration Rate 45 mL/min (>60); Est Glom Filt Rate - Afr Amer 55 mL/min (>60); Globulin 5.9 g/dL (2.2-4.2); Glucose 174 mg/dL (74-106); Lipase 82 U/L (73-393); Potassium 2.6 mmol/L (3.5-5.1); Protein, Total 8.5 g/dL (6.4-8.2); Sodium Level 139 mmol/L (136-145)
[2022-05-13 18:54] VITALS: BP 160/99; PULSE 92; RESP 14; O2SAT 96
[2022-05-13] MEDS: Potassium Chloride 10mEq/100mL 10 MEQ/100 ML IV.SOLN. 100 MEQ IV BOLUS ×4 (19:20→23:33)
--- NOTE | 2022-05-13 19:45 | PCM.HP.STD ---
HPI - General General Date of Admission: 05/13/22 Date of Service: 05/13/22 Chief Complaint: N/V/D HPI Narrative The patient is a 75 y/o F w/ PMHx: CKD stage IIIa, Anxiety and Depression, Morbid obesity, HTN, HLD, PAF, Diabetes mellitus type II w/ Neuropathy, Chronic pain syndrome, Chronic normocytic anemia/iron deficiency anemia, VITA, Hx frequent UTI/Calculi/Pyelonephritis w/ neurogenic bladder with chronic suprapubic catheter, Obesity, Chronic Osteomyelitis Sacrum, recent 04/08/22 discharge following treatment of recurrent complicated UTI, infected nephrostomy tube site w/ suprapubic catheter replacement per Dr. Zavala discharged to SNF on zosyn, minocycline, levaquin regimen with planned 6 week duration who now re-presents to the [facility] ED on 05/13/22 with history of onset nausea, emesis and loose stools with initially onset nausea and emesis the day prior and soft stool since with no associated abdominal pain or cramping but given its not been improving prompted ED evaluation per skilled facility. Patient continues her current antibiotics for recent complicated UTI presentation as well as wound with significant triple antibiotic therapy regimen. Work-up in the ED included T97.6, heart rate 116 initially with most recent repeat 92, BP 153/96, respiratory rate 16, 95 to 96% on room air, see with WC 11.8, hemoglobin 13.2, platelet 249 with left shift and lymphopenia, CMP with potassium 2.6, chloride 91, carbon oxide 40, BUN/and 34/1.23, glucose 174, hepatic profile not marked appearing, lipase 82, urinalysis with specific gravity 1.015, protein 500, ketone negative, occult blood 150, negative nitrite, leukocyte esterase 500, urine WC is 25-50 with 0 urine squamous epithelial cells, 0 urine bacteria, EKG with sinus tachycardia with PACs with no acute evidence of ischemia with mildly prolonged QTC 540. In the ED patient administered small dose of Reglan and Benadryl given mildly prolonged QT in addition to a dose of steroids secondary to a complaint of mildly upper and lower lip swelling which she states is new but denies any recent new medications at the skilled facility in addition to potassium 40 mill equivalent IV. [facility] Medical History (Updated 05/14/22 @ 02:[address] 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 Kidney calculus Morbid obesity Nephrostomy complication Nephrostomy tube displaced VITA (obstructive sleep apnea) Pressure ulcer of coccygeal region, stage 3 Pyonephrosis Recurrent UTI Renal calculus, bilateral Severe sepsis Suprapubic catheter Ulcer of abdomen wall with fat layer exposed Ulcer of left groin with fat layer exposed UTI (urinary tract infection) due to urinary indwelling catheter V tach Home Medications venlafaxine 150 mg capsule,extended release 24 hr 150 mg PO DAILY depression 07/02/19 [History Last Taken 05/13/22] omeprazole 20 mg capsule,delayed release 20 mg PO DAILY heartburn 04/16/21 [History Last Taken 05/13/22] metoprolol tartrate 25 mg tablet 25 mg PO BID bp 07/02/21 [History Last Taken 05/13/22] ferrous sulfate 325 mg (65 mg iron) tablet 325 mg PO QODAY IRON 09/07/21 [History Last Taken 05/13/22] multivitamin with minerals (Multiple Vitamin-Minerals) 1 tab PO DAILY SUPPLEMENT 09/07/21 [History Last Taken 04/05/22] bisacodyl 10 mg rectal suppository 10 mg MA DAILY PRN Constipation 11/08/21 [History Last Taken Unknown] fluticasone propionate 50 mcg/actuation nasal spray,suspension 1 spray intranasal DAILY allergies 11/08/21 [History Last Taken 04/05/22] polyethylene glycol 3350 17 gram oral powder packet (Miralax) 17 g PO DAILY PRN Constipation 11/08/21 [History Last Taken Unknown] acetaminophen 500 mg tablet 1,000 mg PO BID pain 04/05/22 [History Last Taken 05/13/22] diphenhydramine HCl 25 mg capsule 25 mg PO Q12H PRN PRN Itching 04/05/22 [History Last Taken 03/14/22] hydroxyzine HCl 25 mg tablet 25 mg PO Q6H PRN PRN Itching 04/05/22 [History Last Taken 04/04/22] loperamide 2 mg capsule (Imodium A-D) 2 mg PO Q6H PRN diarhea 04/05/22 [History Last Taken 05/13/22] methadone 5 mg tablet 2.5 mg PO DAILY pain 04/05/22 [History Last Taken 05/13/22] methadone 5 mg tablet 5 mg PO QHS pain 04/05/22 [History Last Taken 05/12/22] oxybutynin chloride 10 mg tablet,extended release 24 hr 10 mg PO DAILY bladder spasm 04/05/22 [History Last Taken 05/13/22] pregabalin 50 mg capsule 50 mg PO DAILY pain 04/05/22 [History Last Taken 04/05/22] levofloxacin 750 mg tablet 750 mg PO Q48H #20 tabs 04/08/22 [Rx Last Taken Unknown] minocycline 100 mg capsule 100 mg PO Q12H #85 caps 04/08/22 [Rx Last Taken 05/13/22] nystatin 100,000 unit/gram topical powder (Nyamyc) 1 applic topical BID #0 grams 04/08/22 [Rx Last Taken 05/13/22] piperacillin-tazobactam 3.375 gram/50 mL dextrose(iso-os) IV piggyback (Zosyn) 3.375 g (56.25 mL) IV Q8H 39 days #6,581.25 mL 04/08/22 [Rx Last Taken 05/13/22] Lactobacillus rhamnosus GG 1 cap PO/SL BID IMMUNE HEALTH 05/13/22 [History Last Taken 05/13/22] aluminum-mag hydroxide-simethicone 200 mg-200 mg-20 mg/5 mL oral susp 30 ml PO Q6H INDIGESTION 05/13/22 [History Last Taken 05/13/22] ondansetron 4 mg disintegrating tablet 4 mg PO Q6H NAUSEA AND VOMITING 05/13/22 [History Last Taken 05/13/22] Allergy/AdvReac Type Severity Reaction Status Date / Time adhesive tape Allergy blisters Verified 05/12/22 02:51 Influenza Virus Vaccines Allergy shortness Verified 05/12/22 02:51 of breath/severe wheezing iron Allergy from IV Verified 05/12/22 02:51 form chest pressure and heart palpitations Sulfa (Sulfonamide Allergy Shortness Verified 05/12/22 02:51 Antibiotics) of breath meloxicam [From Mobic] AdvReac gi upset Verified 05/12/22 02:51 seasonal allergies Allergy Other Uncoded 05/12/22 02:51 Family History (Updated 05/14/22 @ 02:[address] Debbie Avendaño MD) Mother Diabetes Heart disease Father Heart disease CHF (congestive heart failure) Hx of CABG Surgical History H/O nephrostomy H/O: hysterectomy History of cholecystectomy History of tonsillectomy Hx of appendectomy Social History household members: none housing: longterm Smoking Status: Never smoker alcohol intake: never substance use type: does not use ROS ROS Narrative Admission Review of Systems: CONSTITUTIONAL: No weight loss, fever, chills, + weakness or fatigue. HEENT: Eyes: No visual loss, blurred vision, double vision or yellow sclerae. Ears, Nose, Throat: No hearing loss, sneezing, congestion, runny nose or sore throat. SKIN: + Intertrigo, chronic sacral wound/osteomyelitis. CARDIOVASCULAR: No chest pain, chest pressure or chest discomfort, palpitations, edema, orthopnea, syncopal events. RESPIRATORY: No shortness of breath, cough or sputum, wheezing, hemoptysis. GASTROINTESTINAL: + anorexia, nausea, vomiting, diarrhea, abdominal cramping, No melena, BRBPR. GENITOURINARY: No dysuria, frequency, urgency or retention. NEUROLOGICAL: No headache, dizziness, syncope, paralysis, ataxia, numbness or tingling in the extremities, focal weakness, change in bowel or bladder control, seizure. MUSCULOSKELETAL: + muscle, back pain, joint pain or stiffness. HEMATOLOGIC: + anemia, bleeding or bruising. LYMPHATICS: No enlarged nodes. No history of splenectomy. PSYCHIATRIC: + history of depression or anxiety. ENDOCRINOLOGIC: No reports of sweating, cold or heat intolerance. No polyuria or polydipsia. ALLERGIES: No history of asthma, hives, eczema or rhinitis. Vital Signs Vital Signs Vital Signs: 05/13/22 16:40 05/13/22 18:54 Temperature 97.6 F L Temperature Source Temporal Pulse Rate 116 H 92 Respiratory Rate 16 14 Blood Pressure 153/96 H 160/99 H Blood Pressure Mean 115 119 Pulse Ox 95 96 Oxygen Delivery Method Room Air Room Air Weight Weight: 229 lb 8.019 oz Body Mass Index (BMI) 37.0 Physical Exam Narrative Physical Examination: General: Awake, alert, oriented to self, place and recent events, remains cooperative, seated upright in the ED bed, fatigued otherwise no acute distress. Skin: Normal color, normal turgor, no icterus, no cyanosis except for bilateral lower extremity stasis disease, fold intertrigo as well as perisuprapubic tube insertion mild skin irritation, chronic sacral wound/osteomyelitis. HEENT: AT/NC, EOMI, PERRLA, moderately dry MM, no carotid bruits or JVD noted. Lungs: Diminished, distant, greater bases, moderate effort, no rales, ronchi or wheezing. Heart: Tachycardic with regular rhythm; no gallop, rub audible. Abdomen: Soft, obese, mild generalized discomfort with palpation but no rebound or guarding, difficult to assess distention, hyperactive bowel sounds, no obvious HSM. Extremities: No cyanosis, no clubbing, bilateral pedal not markedly pitting edema. Neurological: Patient awake, alert, oriented as noted, cognitive function appears baseline intact; pupils equally reactive to light and accommodation, cranial nerves II-XII grossly normal, moving all 4 extremities, no focal deficits, strength moderately to severely global decreased Psychiatric: Affect appears fatigued, no acute evidence of depressive or anxiety feelings. Results Lab / Micro Data Result Diagrams: 05/13/22 17:30 05/13/22 22:30 Labs: Laboratory Results - last 24 hr 05/13/22 17:30: WBC 11.8 H, RBC 4.94, Hgb 13.2, Hct 43.0, MCV 87.0, MCH 26.7 L, MCHC 30.7 L, RDW Std Deviation 49.9 H, RDW Coeff of Jessi 15.7 H, Plt Count 249, MPV 10.1, Immature Gran % (Auto) 0.400, Neut % (Auto) 89.5 H, Lymph % (Auto) 4.3 L, [place] % (Auto) 5.3, Eos % (Auto) 0.2, Baso % (Auto) 0.3, Absolute Neuts (auto) 10.5 H, Absolute Lymphs (auto) 0.51 L, Nucleated RBC % 0, Differential Comment SEE COMMENT, Platelet Estimate ADEQUATE 05/13/22 17:30: Sodium 139, Potassium 2.6 L*, Chloride 91 L, Carbon Dioxide 40.0 H, Anion Gap 8, BUN 34 H, Creatinine 1.23 H, Estim Creat Clear Calc 37.00, Est GFR (MDRD) Af Amer 55 L, Est GFR (MDRD) Non-Af 45 L, BUN/Creatinine Ratio 27.6 H, Glucose 174 H, Calcium 9.9, Total Bilirubin 0.40, Direct Bilirubin 0.18, AST 22, ALT 16, Alkaline Phosphatase 110, Total Protein 8.5 H, Albumin 2.6 L, Globulin 5.9 H, Lipase 82 05/13/22 18:15: Urine Color Yellow, Urine Clarity Sl. Cloudy, Urine pH 6.5, Ur Specific [place] 1.015, Urine Protein 500 H, Urine Glucose (UA) Normal, Urine Ketones Negative, Urine Occult Blood 150 H, Urine Nitrite Negative, Urine Bilirubin Negative, Urine Urobilinogen Normal, Ur Leukocyte Esterase 500 H, Urine RBC 0-5 SEEN, Urine WBC 25-50 SEEN, Ur Squamous Epith Cells 0 SEEN, Ur Renal Epithelial Cell 0-5 SEEN, Urine Bacteria 0 SEEN, Urine Mucus 0 SEEN Assessment & Plan Assessment/Plan (1) Gastroenteritis: PLAN: Plan The patient is a 75 y/o F w/ PMHx: CKD stage IIIa, Anxiety and Depression, Morbid obesity, HTN, HLD, PAF, Diabetes mellitus type II w/ Neuropathy, Chronic pain syndrome, Chronic normocytic anemia/iron deficiency anemia, VITA, Hx frequent UTI/Calculi/Pyelonephritis w/ neurogenic bladder with chronic suprapubic catheter, Obesity, Chronic Osteomyelitis Sacrum, recent 04/08/22 discharge following treatment of recurrent complicated UTI, infected nephrostomy tube site w/ suprapubic catheter replacement per Dr. Zavala discharged to SNF on zosyn, minocycline, levaquin regimen with planned 6 week duration who now re-presents to the [facility] ED on 05/13/22 with history of onset nausea, emesis and loose stools with initially onset nausea and emesis the day prior and soft stool since with no associated abdominal pain or cramping but given its not been improving prompted ED evaluation per skilled facility. #1. N/V/D, Possible Gastroenteritis, recent notable abx therapy: Will admit to [facility], will continue ydration, will obtain c diff, stool cx, O+P, patient had episode of diarrhea in the ED however this is since subsided since transition to the floor, will hold on immediate antibiotic therapy for C. difficile certainly is the highest concern given patient significant antibiotic usage recently, PT/OT/case management consultation for discharge planning. #2. Recent admission with Polymicrobial Infection w/ Complicated UTI w/ suprapubic catheter as well as Chronic Sacral Osteomyelitis: Recent suprapubic catheter replacement per Dr. Zavala, Wound cx with MDR AcB, PsA, klebs, MS-CoNS, e faecalis and Ucx with PsA, klebs with planned abx duration 6 weeks IV zosyn, oral minocycline, oral levaquin regimen per ID recommendation with planned ID follow-up in 2 weeks at her discharge timeline. #3. Questionable Allergic Reaction, Unclear agent: Patient in the ED had noted that her upper and lower lip for the last several days have felt more swollen than normal therefore ED physician did administer steroid regimen in addition to Benadryl however upon evaluation of patient there is no significant upper or lower lip edema and patient appears similar to her prior evaluations as I have evaluated her previously. Certainly she could have some allergic component but unclear what this could be and could include environmental as well as medications. We will continue to closely monitor. #4. Hypokalemia: Admission K+ 2.6, magnesium level requested, supplementation given, repeat level this evening to assure corrected appropriate and in AM. #5. Chronic normocytic anemia/iron deficiency anemia: Admission hemoglobin 13.2 however suspect this is falsely elevated as most recent noted 04/07/2022 hemoglobin 8.3 with baseline primarily 8-9 range, will continue iron supplementation and CBC trending. #6. Anxiety and depression: We will continue patient home venlafaxine regimen. #7. Hypertension: We will continue home metoprolol regimen with hold parameters as needed, PRN hydralazine. #8. Hyperlipidemia: Continue home statin regimen. #9. Hx of Diabetes mellitus type II with peripheral neuropathy: Not on regimen, diet controlled, maintain on ADA diet, Accu-Cheks with insulin sliding scale, hemoglobin A1c requested, continue patient home pregabalin regimen. #10. Chronic pain syndrome: We will continue patient home pregabalin, methadone regimen. #11. Obesity: Weight loss and lifestyle changes encouraged. #12. PAF: Will continue metoprolol regimen, not anticoagulated secondary to risks. #13. Chronic Kidney Disease Stage IIIb: Admission BUN/Cr 34/1.23, baseline renal function 1.1-1.2 primarily, repeat BMP in AM. #14. GERD: Hold PPI pending cdiff assay. #15. VITA: CPAP nightly. #16. DVT prophylaxis: SCDs, Lovenox. #17. CODE status: Full Code. Charges/Coding Visit Charges OBSV E&M: 70783 Initial observation care L3
[2022-05-13] MEDS: Metoclopramide 10 MG/2 ML Vial 5 MG IV (20:55)
[2022-05-13] MEDS: DiphenhydrAMINE 50 MG/ML Syringe 12.5 MG IV (20:55)
[2022-05-13] MEDS: MethylPREDNISolone 125 MG/2 ML Vial IV (20:56)
[2022-05-13 21:02] VITALS: BP 144/95; PULSE 90; RESP 18; TEMP 36.6; O2SAT 98
[2022-05-13 21:39] LABS: Magnesium 2.1 mg/dL (1.6-2.6)
[2022-05-13 21:43] VITALS: BMI 34.8
[2022-05-13 21:44] VITALS: BP 153/95; PULSE 107; RESP 18; TEMP 37.7; O2SAT 97
[2022-05-13] MEDS: Acetaminophen 325 MG Tablet 650 MG PO (21:52)
[2022-05-13 22:00] VITALS: PULSE 111
[2022-05-13 22:27] VITALS: BP 153/95; PULSE 107
[2022-05-13] MEDS: Metoprolol Tartrate 25 MG Tablet PO (22:27)
[2022-05-13] MEDS: Insulin Lispro 100 UNIT/ML INSULN.PEN SC (22:28)
[2022-05-13 22:41] LABS: Bedside Glucose 155 mg/dL (74-106)
--- NOTE | 2022-05-13 23:26 | CPS ---
Pt refuses CPAP at this time
[2022-05-13 23:27] LABS: Anion Gap 9 (5-15); BUN 32 mg/dL (7-18); BUN/Creat Ratio 28.1 RATIO (10-20); Calcium,Total 9.6 mg/dL (8.5-10.1); Chloride 93 mmol/L (98-107); Creatinine, Serum 1.14 mg/dL (0.55-1.02); EST Glomerular Filtration Rate 49 mL/min (>60); Est Glom Filt Rate - Afr Amer 60 mL/min (>60); Estimated Creatinine Clearance 39.92 ml/min; Glucose 150 mg/dL (74-106); Potassium 3.8 mmol/L (3.5-5.1); Sodium Level 140 mmol/L (136-145)
[2022-05-13] MEDS: 0.9% Normal Saline 1,000 ML 125 ML IV (23:35)
[2022-05-14] VITALS (8 sets, daily range): BP systolic 135–154; BP diastolic 62–88; PULSE 89–100; RESP 16–18; TEMP 36.6–37.2; O2SAT 94–99
[2022-05-14] MEDS: Enoxaparin 40 MG/0.4 ML Syringe SC (04:49)
[2022-05-14] MEDS: 0.9% Normal Saline 1,000 ML 125 ML IV (04:49)
[2022-05-14] MEDS: Menthol/Lanolin/Calamine/Znox 113 GM Tube 1 APPLIC TOPICAL ×2 (04:49→13:38)
[2022-05-14 05:01] LABS: Bedside Glucose 105 mg/dL (74-106)
[2022-05-14 07:58] LABS: Absolute Lymphocyte Count 1.06 X10^3/uL (0.83-4.51); Absolute Neutrophil Count 6.6 X10^3/uL (2.0-7.7); Basophil# 0.02 X10^3/uL; Basophil% 0.2 % (0-1); Eosinophil# 0.03 X10^3/uL; Eosinophils% 0.4 % (0-5); Hemoglobin 12.3 g/dL (12.0-15.0); Lymphocyte # 1.06 X10^3/ul (0.83-4.51); Lymphocyte % 12.6 % (19-41); Mean Corpuscular Hgb 26.9 pg (27.0-32.0); Mean Corpuscular Volume 89.7 fL (81-99); Mean Platelet Vol. 10.7 fl (6.2-12.0); Monocyte# 0.73 X10^3/uL; Monocyte% 8.6 % (0-10); NRBC Flagged by Analyzer 0 % (0-5); Neutrophil # 6.56 X10^3/uL (2.7-7.7); Neutrophil % 77.7 % (47-70); Platelet Count 256 K/mm3 (150-450); Red Blood Count 4.57 M/mm3 (4.2-5.4); White Blood Count 8.4 K/mm3 (4.4-11.0)
[2022-05-14 08:13] LABS: ALB/GLOB Ratio 0.5 RATIO (0.9-2.4); AST(SGOT) 22 U/L (15-37); Alanine Aminotransfer ALT/SGPT 14 U/L (13-56); Albumin, Serum 2.4 g/dL (3.2-5.0); Alkaline Phosphatase 94 U/L (45-117); Anion Gap 7 (5-15); BUN 31 mg/dL (7-18); BUN/Creat Ratio 30.4 RATIO (10-20); Calcium,Total 9.2 mg/dL (8.5-10.1); Chloride 98 mmol/L (98-107); Creatinine, Serum 1.02 mg/dL (0.55-1.02); EST Glomerular Filtration Rate 56 mL/min (>60); Est Glom Filt Rate - Afr Amer 68 mL/min (>60); Estimated Creatinine Clearance 44.61 ml/min; Globulin 5.3 g/dL (2.2-4.2); Glucose 103 mg/dL (74-106); Potassium 3.9 mmol/L (3.5-5.1); Protein, Total 7.7 g/dL (6.4-8.2); Sodium Level 140 mmol/L (136-145)
[2022-05-14 08:38] LABS: Hemoglobin A1c 4.4 % (3.8-5.6)
[2022-05-14] MEDS: Tolterodine Tartrate 2 MG CAP.SA PO (09:03)
[2022-05-14] MEDS: Metoprolol Tartrate 25 MG Tablet PO (09:04)
[2022-05-14] MEDS: Pregabalin 50 MG Capsule PO (09:08)
[2022-05-14] MEDS: Fluticasone 0.05% 1 SPRAY NASAL.SRY NASAL (09:08)
[2022-05-14] MEDS: Nystatin Powder 15gm Bottle 1 APPLIC TOPICAL (09:09)
--- NOTE | 2022-05-14 10:48 | CASEMGMT ---
Addendum entered by Asya Acosta 05/14/22 11:50: SW in to speak with pt. Pt confirms she is from [facility] and will be returning at discharge. SW asked pt if this worker can call her sister to update and pt states she has already spoken to her sister. SW placed Green Sheet, transport forms, COVID tool on pt's chart. Plan: Return to [facility] intermediate when medically cleared. Original Note: Social Work Note SW reviewed chart, pt is intermediate resident at [facility]. Pt is able to return when medically cleared. Asya Acosta REHABILITATION TECH, [employer]
[2022-05-14] MEDS: Venlafaxine XR 150 MG Capsule PO (11:03)
[2022-05-14 11:10] LABS: Bedside Glucose 114 mg/dL (74-106)
--- NOTE | 2022-05-14 11:56 | DS.PCM_ITS ---
Providers Date of Admission: 05/13/22 Date of Discharge: 05/14/22 Primary Care Physician: Dr. 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 GASTRO, POSS CDIFF Diagnosis Discharge Diagnosis (1) Gastroenteritis: Status: Acute Code(s): K52.9 - Noninfective gastroenteritis and colitis, unspecified Medications at Discharge Home Medications venlafaxine 150 mg capsule,extended release 24 hr 150 mg PO DAILY depression 07/02/19 omeprazole 20 mg capsule,delayed release 20 mg PO DAILY heartburn 04/16/21 metoprolol tartrate 25 mg tablet 25 mg PO BID bp 07/02/21 ferrous sulfate 325 mg (65 mg iron) tablet 325 mg PO QODAY IRON 09/07/21 multivitamin with minerals (Multiple Vitamin-Minerals) 1 tab PO DAILY SUPPLEMENT 09/07/21 bisacodyl 10 mg rectal suppository 10 mg RI DAILY PRN Constipation 11/08/21 fluticasone propionate 50 mcg/actuation nasal spray,suspension 1 spray intranasal DAILY allergies 11/08/21 polyethylene glycol 3350 17 gram oral powder packet (Miralax) 17 g PO DAILY PRN Constipation 11/08/21 acetaminophen 500 mg tablet 1,000 mg PO BID pain 04/05/22 diphenhydramine HCl 25 mg capsule 25 mg PO Q12H PRN PRN Itching 04/05/22 hydroxyzine HCl 25 mg tablet 25 mg PO Q6H PRN PRN Itching 04/05/22 loperamide 2 mg capsule (Imodium A-D) 2 mg PO Q6H PRN diarhea 04/05/22 methadone 5 mg tablet 2.5 mg PO DAILY pain 04/05/22 methadone 5 mg tablet 5 mg PO QHS pain 04/05/22 oxybutynin chloride 10 mg tablet,extended release 24 hr 10 mg PO DAILY bladder spasm 04/05/22 pregabalin 50 mg capsule 50 mg PO DAILY pain 04/05/22 levofloxacin 750 mg tablet 750 mg PO Q48H #20 tabs 04/08/22 minocycline 100 mg capsule 100 mg PO Q12H #85 caps 04/08/22 nystatin 100,000 unit/gram topical powder (Nyamyc) 1 applic topical BID #0 grams 04/08/22 piperacillin-tazobactam 3.375 gram/50 mL dextrose(iso-os) IV piggyback (Zosyn) 3.375 g (56.25 mL) IV Q8H 39 days #6,581.25 mL 04/08/22 Lactobacillus rhamnosus GG 1 cap PO/SL BID IMMUNE HEALTH 05/13/22 aluminum-mag hydroxide-simethicone 200 mg-200 mg-20 mg/5 mL oral susp 30 ml PO Q6H INDIGESTION 05/13/22 ondansetron 4 mg disintegrating tablet 4 mg PO Q6H NAUSEA AND VOMITING 05/13/22 Hospital Course Operations None Procedures None Summary of Care Provided Minutes Spent on Discharge: 25 Hospital Course: Mrs. Carpenter is a 76-year-old white female who presented to the emergency department was coming hospital from her skilled facility on 05/13/2022 with nausea vomiting and diarrhea. The patient has been on antibiotics for a sacral decubitus infection as well as a urinary tract infection associated with a chronic suprapubic catheter. She had been doing well up until 2 days ago when she started having nausea vomiting and diarrhea. And presented to the emergency department yesterday secondary to the lack of improvement. She really denied any other associated symptoms upon presentation. Work-up in the ED included T97.6, heart rate 116 initially with most recent repeat 92, BP 153/96, respiratory rate 16, 95 to 96% on room air, see with WC 11.8, hemoglobin 13.2, platelet 249 with left shift and lymphopenia, CMP with potassium 2.6, chloride 91, carbon oxide 40, BUN/and 34/1.23, glucose 174, hepatic profile not marked appearing, lipase 82, urinalysis with specific gravity 1.015, protein 500, k etone negative, occult blood 150, negative nitrite, leukocyte esterase 500, urine WC is 25-50 with 0 urine squamous epithelial cells, 0 urine bacteria, EKG with sinus tachycardia with PACs with no acute evidence of ischemia with mildly prolonged QTC 540.? In the ED patient administered small dose of Reglan and Benadryl given mildly prolonged QT in addition to a dose of steroids secondary to a complaint of mildly upper and lower lip swelling which she states is new but denies any recent new medications at the skilled facility in addition to potassium 40 mill equivalent IV. She was admitted to the general medical floor and hydrated. A stool lactoferrin was obtained and was negative. C. difficile was obtained and was negative. Enteric stool pathogen was obtained and was pending upon discharge however her nausea vomiting and diarrhea had completely resolved. Ova and parasites were also pending at discharge. The patient reported that she was feeling completely better and felt that she could go back to her nursing facility. She had a complete breakfast and was looking forward to eating a turkey sandwich for lunch. She reported that she had no further nausea vomiting or diarrhea since she came up from the emergency department at admission. Given her dramatic improvement she was discharged back to the skilled facility in stable condition on 05/14/2022. 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-undergoing chronic treatment Infected nephrostomy tube site-undergoing chronic treatment Chronic normocytic anemia CKD stage IIIa Hypertension Neuropathy GERD Chronic pain Debility Depression Physical Exam Const alert, oriented x3, no apparent distress, healthy appearing and well nourished Constitutional Narrative: Obese, older white female, sitting up in bed watching television eating breakfast, appears comfortable nontoxic General Appearance: cooperative, comfortable, well kempt and well developed Orientation / Consciousness: awake Exam Limitations: no limitations Nutritional Appearance: obese HEENT normocephalic, head/scalp atraumatic and moist oral mucous membranes Resp normal respiratory effort, no retractions, no use of accessory muscles and clear to auscultation bilaterally Auscultation: Negative for crackles, rales, rhonchi or wheezes Cardio regular rate, regular rhythm, S1 normal heart sound, S2 normal heart sound, no murmurs, no rub, no gallops, no clicks and no JVD GI normal to inspection, nondistended, normoactive bowel sounds, soft to palpation, non-tender and non-distended Extremity no clubbing, cyanosis or edema Extremity Narrative: 2+ pedal pulses, right upper extremity PICC in good condition-clean dry and intact Neuro oriented x3 and CN's II-XII intact bilaterally Neuro Narrative: Bilateral lower extremity plantar flexion contractures with decreased mobility, moves bilateral upper extremities symmetrically without any deficits-this is her baseline Sensorium / Orientation: awake, alert, oriented to person, oriented to place and oriented to time Speech: speech normal Psych affect normal Psych Narrative: Very pleasant Weight / BMI Weight Weight: 98 kg Body Mass Index (BMI) 34.8 ABG / Lab / Microbiology Data Result Diagrams: 05/14/22 07:00 05/14/22 07:00 Laboratory: Laboratory Results - last 24 hr 05/13/22 17:30: WBC 11.8 H, RBC 4.94, Hgb 13.2, Hct 43.0, MCV 87.0, MCH 26.7 L, MCHC 30.7 L, RDW Std Deviation 49.9 H, RDW Coeff of Jessi 15.7 H, Plt Count 249, MPV 10.1, Immature Gran % (Auto) 0.400, Neut % (Auto) 89.5 H, Lymph % (Auto) 4.3 L, [place] % (Auto) 5.3, Eos % (Auto) 0.2, Baso % (Auto) 0.3, Absolute Neuts (auto) 10.5 H, Absolute Lymphs (auto) 0.51 L, Nucleated RBC % 0, Differential Comment SEE COMMENT, Platelet Estimate ADEQUATE 05/13/22 17:30: Sodium 139, Potassium 2.6 L*, Chloride 91 L, Carbon Dioxide 40.0 H, Anion Gap 8, BUN 34 H, Creatinine 1.23 H, Estim Creat Clear Calc 37.00, Est GFR (MDRD) Af Amer 55 L, Est GFR (MDRD) Non-Af 45 L, BUN/Creatinine Ratio 27.6 H , Glucose 174 H, Calcium 9.9, Total Bilirubin 0.40, Direct Bilirubin 0.18, AST 22, ALT 16, Alkaline Phosphatase 110, Total Protein 8.5 H, Albumin 2.6 L, Globulin 5.9 H, Lipase 82 05/13/22 17:30: Magnesium 2.1 05/13/22 18:15: Urine Color Yellow, Urine Clarity Sl. Cloudy, Urine pH 6.5, Ur Specific [place] 1.015, Urine Protein 500 H, Urine Glucose (UA) Normal, Urine Ketones Negative, Urine Occult Blood 150 H, Urine Nitrite Negative, Urine Bilirubin Negative, Urine Urobilinogen Normal, Ur Leukocyte Esterase 500 H, Urine RBC 0-5 SEEN, Urine WBC 25-50 SEEN, Ur Squamous Epith Cells 0 SEEN, Ur Renal Epithelial Cell 0-5 SEEN, Urine Bacteria 0 SEEN, Urine Mucus 0 SEEN 05/13/22 22:26: POC Glucose 155 H 05/13/22 22:30: Sodium 140, Potassium 3.8, Chloride 93 L, Carbon Dioxide 38.0 H, Anion Gap 9, BUN 32 H, Creatinine 1.14 H, Estim Creat Clear Calc 39.92, Est GFR (MDRD) Af Amer 60, Est GFR (MDRD) Non-Af 49 L, BUN/Creatinine Ratio 28.1 H, Glucose 150 H, Calcium 9.6 05/14/22 04:48: POC Glucose 105 05/14/22 07:00: Procalcitonin 0.10 H 05/14/22 07:00: WBC 8.4, RBC 4.57, Hgb 12.3, Hct 41.0, MCV 89.7, MCH 26.9 L, MCHC 30.0 L, RDW Std Deviation 53.0 H, RDW Coeff of Jessi 16.0 H, Plt Count 256, MPV 10.7, Immature Gran % (Auto) 0.500, Neut % (Auto) 77.7 H, Lymph % (Auto) 12.6 L, [place] % (Auto) 8.6, Eos % (Auto) 0.4, Baso % (Auto) 0.2, Absolute Neuts (auto) 6.6, Absolute Lymphs (auto) 1.06, Nucleated RBC % 0 05/14/22 07:00: Sodium 140, Potassium 3.9, Chloride 98, Carbon Dioxide 35.0 H, Anion Gap 7, BUN 31 H, Creatinine 1.02, Estim Creat Clear Calc 44.61, Est GFR (MDRD) Af Amer 68, Est GFR (MDRD) Non-Af 56 L, BUN/Creatinine Ratio 30.4 H, Glucose 103, Calcium 9.2, Total Bilirubin 0.30, AST 22, ALT 14, Alkaline Phosphatase 94, Total Protein 7.7, Albumin 2.4 L, Globulin 5.3 H, Albumin/Globulin Ratio 0.5 L 05/14/22 07:00: Hemoglobin A1c 4.4 05/14/22 11:01: POC Glucose 114 H Microbiology: Microbiology 05/13/22 21:15 Stool C. difficile DNA Amplification - Final 05/13/22 21:15 Stool Stool Lactoferrin - Final Meaningful Use Info Meaningful Use Diagnoses (Choose all that apply): None applicable Discharge Plan Admission Admit Date/Time: 05/13/22 20:29 Primary Reason for Your Visit: Nausea/vomiting/diarrhea Attending Provider: Racheal Sosa Primary Care Provider: Jacky Correa Consulting Providers: Debbie Avendaño Discharge Orders/Prescriptions Prescriptions: Continued venlafaxine 150 MG capsule 150 mg PO DAILY Label Comments: TAKE ONE CAPSULE BY MOUTH TWICE DAILY omeprazole 20 mg Capsule,Delayed Release(Dr/Ec) 20 mg PO DAILY metoprolol tartrate 25 mg Tablet 25 mg PO BID ferrous sulfate 325 mg (65 mg iron) Tablet 325 mg PO QODAY Multiple Vitamin-Minerals Tablet 1 tab PO DAILY polyethylene glycol 3350 [Miralax] 17 gram Powder In Packet 17 g PO DAILY PRN (Reason: Constipation) bisacodyl 10 mg Suppository 10 mg RI DAILY PRN (Reason: Constipation) fluticasone propionate 50 mcg/actuation [place],Suspension 1 spray INTRANASAL DAILY acetaminophen 500 MG tablet 1,000 mg PO BID methadone 5 mg tablet 2.5 mg PO DAILY oxybutynin chloride 10 mg tablet extended release 24hr 10 mg PO DAILY hydroxyzine HCl 25 mg tablet 25 mg PO Q6H PRN PRN (Reason: Itching) methadone 5 mg tablet 5 mg PO QHS pregabalin 50 mg capsule 50 mg PO DAILY loperamide [Imodium A-D] 2 mg Capsule 2 mg PO Q6H PRN (Reason: diarhea) diphenhydramine HCl 25 mg Capsule 25 mg PO Q12H PRN PRN (Reason: Itching) Zosyn in dextrose (iso-osm) 3.375 gram/50 mL piggyback 3.375 g IV Q8H 39 Days Qty: 6581.25 0RF Rx Instructions: stop date 05/17/22 dx: osteomyelitis weekly bmp, cbc, LFT, and esr. Fax to [phone] routine picc care with heparin/saline flush per protocol minocycline 100 mg capsule 100 mg PO Q12H Qty: 85 0RF Rx Instructions: First dose is 200mg, then 100mg bid after that levofloxacin 750 mg tablet 750 mg PO Q48H Qty: 20 0RF nystatin [Nyamyc] 100,000 unit/gram Powder 1 applic topical BID Qty: 0 0RF Protocol: *Topical Application Instructions APPLICATION INSTRUCTIONS: to abd folds and groin alum-mag hydroxide-simeth 200-200-20 mg/5 mL Suspension 30 ml PO Q6H ondansetron 4 mg Tablet,Disintegrating 4 mg PO Q6H Lactobacillus rhamnosus GG 1 cap PO/SL BID Referrals / Follow Up: Jacky Correa MD [Primary Care Provider] - Disposition Disposition (needs filled in before D/C Order can be placed): [facility] Charges/Coding Visit Charges Inpatient E&M: 21454 SNF Disch
--- NOTE | 2022-05-14 12:05 | PCM.TXEXTCAR ---
Diet Diet Order/Speech Therapy: 05/13/22 21:20 Diet: Consistent Carb - Calorie Controlled Food consistency:: Regular Liquid Consistency:: Regular/Thin How many daily calories?: 1800 calorie Routine Orders/Code Status Change Henry Catheter: Suprapubic catheter change monthly Code Status: Full Code Wound(s) cleft: Wound Type: Pressure Injury suprapubic cath: Wound Type: chronic drainage around suprapubic left groin fold: Wound Type: Abrasion Problem/Diagnosis (1) Gastroenteritis: Status: Acute Code(s): K52.9 - Noninfective gastroenteritis and colitis, unspecified Allergies/Procedures Done in Hospital Allergies adhesive tape Allergy (Verified 05/12/22 02:51) blisters Influenza Virus Vaccines Allergy (Verified 05/12/22 02:51) shortness of breath/severe wheezing iron Allergy (Verified 05/12/22 02:51) from IV form chest pressure and heart palpitations Sulfa (Sulfonamide Antibiotics) Allergy (Verified 05/12/22 02:51) Shortness of breath bactrim does not work for her-per pcp paperwork meloxicam [From Mobic] Adverse Reaction (Verified 05/12/22 02:51) gi upset seasonal allergies Allergy (Uncoded 05/12/22 02:51) Other Procedures: None Type of Care/Length of Stay Estimated LOS: More Than 30 Days Type of Care Needed: Skilled Rehab Potential: Fair Prognosis: Good Additional Orders/Day of Discharge Day of Discharge: 05/14/22 Discharge Plan Admission Admit Date/Time: 05/13/22 20:29 Primary Reason for Your Visit: Nausea/vomiting/diarrhea Attending Provider: Racheal Sosa Primary Care Provider: Jacky Correa Consulting Providers: Debbie Avendaño Discharge Orders/Prescriptions Prescriptions: Continued venlafaxine 150 MG capsule 150 mg PO DAILY Label Comments: TAKE ONE CAPSULE BY MOUTH TWICE DAILY omeprazole 20 mg Capsule,Delayed Release(Dr/Ec) 20 mg PO DAILY metoprolol tartrate 25 mg Tablet 25 mg PO BID ferrous sulfate 325 mg (65 mg iron) Tablet 325 mg PO QODAY Multiple Vitamin-Minerals Tablet 1 tab PO DAILY polyethylene glycol 3350 [Miralax] 17 gram Powder In Packet 17 g PO DAILY PRN (Reason: Constipation) bisacodyl 10 mg Suppository 10 mg [place] DAILY PRN (Reason: Constipation) fluticasone propionate 50 mcg/actuation [place],Suspension 1 spray INTRANASAL DAILY acetaminophen 500 MG tablet 1,000 mg PO BID methadone 5 mg tablet 2.5 mg PO DAILY oxybutynin chloride 10 mg tablet extended release 24hr 10 mg PO DAILY hydroxyzine HCl 25 mg tablet 25 mg PO Q6H PRN PRN (Reason: Itching) methadone 5 mg tablet 5 mg PO QHS pregabalin 50 mg capsule 50 mg PO DAILY loperamide [Imodium A-D] 2 mg Capsule 2 mg PO Q6H PRN (Reason: diarhea) diphenhydramine HCl 25 mg Capsule 25 mg PO Q12H PRN PRN (Reason: Itching) Zosyn in dextrose (iso-osm) 3.375 gram/50 mL piggyback 3.375 g IV Q8H 39 Days Qty: 6581.25 0RF Rx Instructions: stop date 05/17/22 dx: osteomyelitis weekly bmp, cbc, LFT, and esr. Fax to [phone] routine picc care with heparin/saline flush per protocol minocycline 100 mg capsule 100 mg PO Q12H Qty: 85 0RF Rx Instructions: First dose is 200mg, then 100mg bid after that levofloxacin 750 mg tablet 750 mg PO Q48H Qty: 20 0RF nystatin [Nyamyc] 100,000 unit/gram Powder 1 applic topical BID Qty: 0 0RF Protocol: *Topical Application Instructions APPLICATION INSTRUCTIONS: to abd folds and groin alum-mag hydroxide-simeth 200-200-20 mg/5 mL Suspension 30 ml PO Q6H ondansetron 4 mg Tablet,Disintegrating 4 mg PO Q6H Lactobacillus rhamnosus GG 1 cap PO/SL BID Referrals / Follow Up: Jacky Correa MD [Primary Care Provider] - Disposition Disposition (needs filled in before D/C Order can be placed): [facility]
== END 2022-05-14 16:41 | disposition skilled nursing facility (03) ==
LOC: ED 20:02 → MS3 20:41
PROVIDERS: Admitting Provider Family Medicine; Emergency Provider Emergency Medicine; PCP Family Medicine; Visit Provider Internal Medicine
DX: K52.9 Noninfective gastroenteritis and colitis, unspecified (principal); L89.153 Pressure ulcer of sacral region, stage 3; T83.510A Infection and inflammatory reaction due to cystostomy catheter, initial encounter; I13.0 Hypertensive heart and chronic kidney disease with heart failure and stage 1 through stage 4 chronic kidney disease, or unspecified chronic kidney disease; I50.9 Heart failure, unspecified; E11.40 Type 2 diabetes mellitus with diabetic neuropathy, unspecified; E11.22 Type 2 diabetes mellitus with diabetic chronic kidney disease; I48.91 Unspecified atrial fibrillation; E66.01 Morbid (severe) obesity due to excess calories; N18.31 Chronic kidney disease, stage 3a; N39.0 Urinary tract infection, site not specified; E87.6 Hypokalemia; G89.29 Other chronic pain; E78.5 Hyperlipidemia, unspecified; K21.9 Gastro-esophageal reflux disease without esophagitis; R53.81 Other malaise; Z79.899 Other long term (current) drug therapy; J45.909 Unspecified asthma, uncomplicated; Z68.34 Body mass index [BMI] 34.0-34.9, adult; G47.33 Obstructive sleep apnea (adult) (pediatric)
CPT/HCPCS: 36415; 80048; 80053; 80076; 81001; 82962; 83036; 83630; 83690; 83735; 84145; 85025; 87177; 87209; 87426; 87493; 87506; 93005; 96361; 96365; 96366; 96367; 96375; 99251; 99285; J7030; G0463

== ENCOUNTER 2022-08-18 22:49 | Emergency (ER) | payer MEDICARE, OTHER, MEDICAID, SELFPAY ==
[2022-08-18 22:50] VITALS: BP 102/65; PULSE 65; RESP 16; TEMP 36.4; O2SAT 98; BMI 39.9
--- NOTE | 2022-08-18 23:38 | EX.ED.DYSGE1 ---
HPI History of Present Illness Chief Complaint: Abn Labs Informant: patient Narrative Narrative: [facility] 3.51. Patient states that she really does not feel that bad. She feels a little less energetic than normal but not markedly. She states she is eating and drinking. She has not had diarrhea but her stools have been slightly softer recently. She thinks this is due to eating more fiber. No blood in the stool. She has had a suprapubic catheter for about 12 years and is is still putting out urine. She states she has had symptoms of a UTI for about 3 or 4 weeks. She just feels as though the urine ruby her skin more if she passes some through the urethra which she can do. She has never had a fever. She does have history of a large stone in the left kidney but is not having any pain there. She has had stents in the past as well as a nephrostomy tube. She states her right kidney is functional. She thought that she was still on Lasix but we do not see any diuretics on her med list. I do not know if these may have just been stopped recently though. 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 Kidney calculus Morbid obesity Nephrostomy complication Nephrostomy tube displaced VITA (obstructive sleep apnea) Pressure ulcer of coccygeal region, stage 3 Pyonephrosis Recurrent UTI Renal calculus, bilateral Severe sepsis Suprapubic catheter Ulcer of abdomen wall with fat layer exposed Ulcer of left groin with fat layer exposed UTI (urinary tract infection) due to urinary indwelling catheter V tach Home Medications venlafaxine 150 mg capsule,extended release 24 hr 150 mg PO DAILY depression 07/02/19 [History Last Taken 05/13/22] omeprazole 20 mg capsule,delayed release 20 mg PO DAILY heartburn 04/16/21 [History Last Taken 05/13/22] metoprolol tartrate 25 mg tablet 25 mg PO BID bp 07/02/21 [History Last Taken 05/13/22] ferrous sulfate 325 mg (65 mg iron) tablet 325 mg PO QODAY IRON 09/07/21 [History Last Taken 05/13/22] multivitamin with minerals (Multiple Vitamin-Minerals tablet) 1 tab PO DAILY SUPPLEMENT 09/07/21 [History Last Taken 04/05/22] bisacodyl 10 mg rectal suppository 10 mg [place] DAILY PRN Constipation 11/08/21 [History Last Taken Unknown] fluticasone propionate 50 mcg/actuation nasal spray,suspension 1 spray intranasal DAILY allergies 11/08/21 [History Last Taken 04/05/22] polyethylene glycol 3350 17 gram oral powder packet (Miralax) 17 g PO DAILY PRN Constipation 11/08/21 [History Last Taken Unknown] acetaminophen 500 mg tablet 1,000 mg PO BID pain 04/05/22 [History Last Taken 05/13/22] diphenhydramine HCl 25 mg capsule 25 mg PO Q12H PRN PRN Itching 04/05/22 [History Last Taken 03/14/22] hydroxyzine HCl 25 mg tablet 25 mg PO Q6H PRN PRN Itching 04/05/22 [History Last Taken 04/04/22] loperamide 2 mg capsule (Imodium A-D) 2 mg PO Q6H PRN diarhea 04/05/22 [History Last Taken 05/13/22] methadone 5 mg tablet 2.5 mg PO DAILY pain 04/05/22 [History Last Taken 05/13/22] methadone 5 mg tablet 5 mg PO QHS pain 04/05/22 [History Last Taken 05/12/22] oxybutynin chloride 10 mg tablet,extended release 24 hr 10 mg PO DAILY bladder spasm 04/05/22 [History Last Taken 05/13/22] pregabalin 50 mg capsule 50 mg PO DAILY pain 04/05/22 [History Last Taken 04/05/22] levofloxacin 750 mg tablet 750 mg PO Q48H #20 tabs 04/08/22 [Rx Last Taken Unknown] nystatin 100,000 unit/gram topical powder (Nyamyc) 1 applic topical BID #0 grams 04/08/22 [Rx Last Taken 05/13/22] Lactobacillus rhamnosus GG 1 cap PO/SL BID [facility] 05/13/22 [History Last Taken 05/13/22] aluminum-mag hydroxide-simethicone 200 mg-200 mg-20 mg/5 mL oral susp 30 ml PO Q6H INDIGESTION 05/13/22 [History Last Taken 05/13/22] ondansetron 4 mg disintegrating tablet 4 mg PO Q6H NAUSEA AND VOMITING 05/13/22 [History Last Taken 05/13/22] cefdinir 300 mg capsule 300 mg PO DAILY 08/18/22 [History Last Taken Unknown] venlafaxine 100 mg tablet 100 mg PO DAILY 08/18/22 [History Last Taken Unknown] Allergy/AdvReac Type Severity Reaction Status Date / Time adhesive tape Allergy blisters Verified 08/18/22 23:10 Influenza Virus Vaccines Allergy shortness Verified 08/18/22 23:10 of breath/severe wheezing iron Allergy from IV Verified 08/18/22 23:10 form chest pressure and heart palpitations Seasonal Allergies: Uncoded Allergy NEEDS Verified 08/18/22 23:10 FOLLOW-UP Sulfa (Sulfonamide Allergy Shortness Verified 08/18/22 23:10 Antibiotics) of breath meloxicam [From Mobic] AdvReac gi upset Verified 08/18/22 23:10 Family History Mother Diabetes Heart disease Father Heart disease CHF (congestive heart failure) Hx of CABG Surgical History H/O nephrostomy H/O: hysterectomy History of cholecystectomy History of tonsillectomy Hx of appendectomy Social History household members: none housing: correction Smoking Status: Never smoker alcohol intake: never substance use type: does not use ROS ROS ED Constitutional Constitutional ED: Denies chills or fever(s) ENT ENT ED: Denies rhinorrhea or sore throat Cardiovascular Cardiovascular: Denies chest pain Respiratory/Chest Respiratory/Chest: Denies cough or dyspnea Gastrointestinal Gastrointestinal: Denies abdominal pain, diarrhea, nausea or vomiting Genitourinary Genitourinary ED: Reports dysuria Musculoskeletal Musculoskeletal: Denies myalgias Integumentary Denies rash Neurologic Neurologic: Denies headache(s) Endocrine Endocrinology: Denies polydipsia or polyuria Hematologic/Lymphatic Hematologic/Lymphatic: Denies easy bleeding or easy bruising Allergic/Immunologic Allergic/Immunologic ED: Denies urticaria EXAM Physical Exam Const Vital Signs: 08/18/22 22:50 08/18/22 22:54 Temperature 97.6 F L Temperature Source Temporal Pulse Rate 65 Respiratory Rate 16 Respiratory Effort Normal Respiratory Pattern Normal Blood Pressure 102/65 Blood Pressure Mean 77 Pulse Ox 98 Oxygen Delivery Method Room Air Positive well nourished, well developed and obese General Appearance ED: well developed and NAD Nutritional Appearance: obese HEENT Reports dry mucous membranes Mouth ED: Yes dry mucous membranes Mouth: dry mucous membranes Eyes General Eye ED: Negative for scleral icterus Neck supple Chest Wall inspection of chest normal Resp normal respiratory effort and clear to auscultation bilaterally Cardio regular rate and regular rhythm GI normal to inspection, nondistended, normoactive bowel sounds GI Narrative: Suprapubic cath is in normal position. The urine does look a bit cloudy coming from the catheter. Back/Spine no CVA tenderness Extremity normal to inspection Neuro oriented x3 Psych mental status grossly normal Skin no rashes or lesions noted MDM MDM MDM Narrative Medical decision making narrative: Patient CBC shows anemia. But she states she has been anemic for a long time. This is a drop from recently but it is more consistent with her history. She is not having any sources of bleeding that she is noted. Electrolytes showed normal creatinine for her. It is at 1.05. Potassium is also normal. Urine does show suspicious signs for UTI. It is cloudy with positive nitrites, positive leukocyte esterase, and a large number of white cells and bacteria. Patient states she was just started on Augmentin tonight for this and will be continuing on that. For this reason I will not add further antibiotics at this time. She is comfortable going back to her nursing facility. My suspicion is that the lab just made an error in this case. Patient states that her facility just switched to a new laboratory. Of note, we did have another person here earlier with marked anemia that ended up not being accurate either. Lab Data Attestation: I reviewed the patient's lab results. Labs: Laboratory Results - last 24 hr 08/18/22 08/18/22 08/18/22 23:30 23:30 23:30 WBC 5.5 RBC 3.58 L Hgb 9.4 L Hct 31.5 L MCV 88.0 MCH 26.3 L MCHC 29.8 L RDW Std Deviation 52.2 H RDW Coeff of Jessi 16.3 H Plt Count 287 MPV 10.2 Immature Gran % (Auto) 0.500 Neut % (Auto) 61.6 Lymph % (Auto) 19.6 [place] % (Auto) 9.8 Eos % (Auto) 7.8 H Baso % (Auto) 0.7 Absolute Neuts (auto) 3.4 Absolute Lymphs (auto) 1.08 Nucleated RBC % 0 Sodium 140 Potassium 3.9 Chloride 106 Carbon Dioxide 29.0 Anion Gap 5 BUN 34 H Creatinine 1.05 H Estim Creat Clear Calc 43.34 Est GFR (MDRD) Af Amer 66 Est GFR (MDRD) Non-Af 54 L BUN/Creatinine Ratio 32.4 H Glucose 93 Calcium 9.0 Urine Color Yellow Urine Clarity Cloudy Urine pH 6.0 Ur Specific [place] 1.010 Urine Protein 100 H Urine Glucose (UA) Normal Urine Ketones Negative Urine Occult Blood 250 H Urine Nitrite Positive H Urine Bilirubin Negative Urine Urobilinogen Normal Ur Leukocyte Esterase 500 H Urine RBC 25-50 SEEN Urine WBC >100 SEEN Ur Squamous Epith Cells 0-5 SEEN Urine Bacteria 3+ Urine Mucus 0 SEEN EKG Initial EKG: Comments: EKG done for possibility of hyperkalemia read by me shows a normal sinus rhythm. Overall rate of 66. No ectopy. Mild nonspecific diffuse ST and T wave changes but no elevation or depression. WA interval, QRS duration and QTc are normal. Discharge Plan Triage Chief Complaint: Abn Labs ED Provider: Wilton Rojas Dx/Rx/DC Orders Clinical Impression: Abnormal laboratory test result, Acute UTI (urinary tract infection) Instructions: ED Cystitis Female Adult Prescriptions: No Action venlafaxine 150 MG capsule 150 mg PO DAILY Label Comments: TAKE ONE CAPSULE BY MOUTH TWICE DAILY omeprazole 20 mg Capsule,Delayed Release(Dr/Ec) 20 mg PO DAILY metoprolol tartrate 25 mg Tablet 25 mg PO BID ferrous sulfate 325 mg (65 mg iron) Tablet 325 mg PO QODAY Multiple Vitamin-Minerals Tablet 1 tab PO DAILY polyethylene glycol 3350 [Miralax] 17 gram Powder In Packet 17 g PO DAILY PRN (Reason: Constipation) bisacodyl 10 mg Suppository 10 mg [place] DAILY PRN (Reason: Constipation) fluticasone propionate 50 mcg/actuation [place],Suspension 1 spray INTRANASAL DAILY acetaminophen 500 MG tablet 1,000 mg PO BID methadone 5 mg tablet 2.5 mg PO DAILY oxybutynin chloride 10 mg tablet extended release 24hr 10 mg PO DAILY hydroxyzine HCl 25 mg tablet 25 mg PO Q6H PRN PRN (Reason: Itching) methadone 5 mg tablet 5 mg PO QHS pregabalin 50 mg capsule 50 mg PO DAILY loperamide [Imodium A-D] 2 mg Capsule 2 mg PO Q6H PRN (Reason: diarhea) diphenhydramine HCl 25 mg Capsule 25 mg PO Q12H PRN PRN (Reason: Itching) levofloxacin 750 mg tablet 750 mg PO Q48H Qty: 20 0RF nystatin [Nyamyc] 100,000 unit/gram Powder 1 applic topical BID Qty: 0 0RF Protocol: *Topical Application Instructions APPLICATION INSTRUCTIONS: to abd folds and groin alum-mag hydroxide-simeth 200-200-20 mg/5 mL Suspension 30 ml PO Q6H ondansetron 4 mg Tablet,Disintegrating 4 mg PO Q6H Lactobacillus rhamnosus GG 1 cap PO/SL BID cefdinir 300 mg Capsule 300 mg PO DAILY venlafaxine 100 mg tablet 100 mg PO DAILY Primary Care Provider: Jacky Correa Referrals: Jacky Correa MD [Primary Care Provider] - 1-2 Days if not improving Disposition Disposition: [facility] Facility Discharge Location: [facility]
[2022-08-18 23:40] LABS: Mucous, Urine 0 SEEN /hpf (<or=2+)
[2022-08-18 23:42] LABS: Absolute Lymphocyte Count 1.08 X10^3/uL (0.83-4.51); Absolute Neutrophil Count 3.4 X10^3/uL (2.0-7.7); Basophil# 0.04 X10^3/uL; Basophil% 0.7 % (0-1); Color, Urine Yellow (Yellow); Eosinophil# 0.43 X10^3/uL; Eosinophils% 7.8 % (0-5); Glucose, Dipstick Normal (Normal); Hematocrit 31.5 % (37-47); Hemoglobin 9.4 g/dL (12.0-15.0); Ketone-Dipstick Negative (Negative); Leukocyte Esterase-Dipstick 500 /ul (Negative); Lymphocyte # 1.08 X10^3/ul (0.83-4.51); Lymphocyte % 19.6 % (19-41); Mean Corp Hgb Conc 29.8 g/dL (32-36); Mean Corpuscular Hgb 26.3 pg (27.0-32.0); Mean Platelet Vol. 10.2 fl (6.2-12.0); Monocyte# 0.54 X10^3/uL; Monocyte% 9.8 % (0-10); NRBC Flagged by Analyzer 0 % (0-5); Neutrophil # 3.39 X10^3/uL (2.7-7.7); Neutrophil % 61.6 % (47-70); Nitrite-Dipstick Positive (Negative); Occult Blood-Urine 250 /ul (Negative); Platelet Count 287 K/mm3 (150-450); Protein-Dipstick 100 mg/dl (Negative); RBC Distribution Width CV 16.3 % (11.6-14.6); RBC Distribution Width SD 52.2 fl (35.1-43.9); Red Blood Count 3.58 M/mm3 (4.2-5.4); Urine Bilirubin Dipstick Negative (Negative); Urine Clarity Cloudy (Clear); Urine Urobilinogen Normal (Normal); White Blood Count 5.5 K/mm3 (4.4-11.0)
[2022-08-18 23:53] LABS: Bacteria 3+ /hpf (None Seen); Red Blood Cells-Urine 25-50 SEEN /hpf (0-5); Squamous Epithelial Cells - UA 0-5 SEEN /hpf (5-10); White Blood Cells >100 SEEN /hpf (0-5)
[2022-08-19 00:01] LABS: Anion Gap 5 (5-15); BUN 34 mg/dL (7-18); BUN/Creat Ratio 32.4 RATIO (10-20); Chloride 106 mmol/L (98-107); Creatinine, Serum 1.05 mg/dL (0.55-1.02); EST Glomerular Filtration Rate 54 mL/min (>60); Est Glom Filt Rate - Afr Amer 66 mL/min (>60); Estimated Creatinine Clearance 43.34 ml/min; Glucose 93 mg/dL (74-106); Potassium 3.9 mmol/L (3.5-5.1); Sodium Level 140 mmol/L (136-145)
[2022-08-19 00:30] VITALS: BP 106/61; PULSE 66; RESP 18; TEMP 36.2; O2SAT 98
--- NOTE | 2022-08-19 01:21 | ED.RN ---
REPORT GIVEN TO TUAN AT [facility].
[2022-08-19 02:00] VITALS: RESP 15
--- NOTE | 2022-08-21 09:02 | ED.RN ---
CALLED AND TALKED TO NUR[facility]ING [facility] AND GAVE NEW PRESCRIPTION. ALSO FAXED CULTURE RESULTS TO THEM
== END 2022-08-19 02:25 | disposition skilled nursing facility (03) ==
PROVIDERS: Emergency Provider Emergency Medicine; PCP Family Medicine; Visit Provider Emergency Medicine
DX: R79.89 Other specified abnormal findings of blood chemistry (principal); I13.0 Hypertensive heart and chronic kidney disease with heart failure and stage 1 through stage 4 chronic kidney disease, or unspecified chronic kidney disease; I50.9 Heart failure, unspecified; E11.22 Type 2 diabetes mellitus with diabetic chronic kidney disease; E66.01 Morbid (severe) obesity due to excess calories; N39.0 Urinary tract infection, site not specified; N18.9 Chronic kidney disease, unspecified; E78.5 Hyperlipidemia, unspecified; D63.1 Anemia in chronic kidney disease; Z68.39 Body mass index [BMI] 39.0-39.9, adult; Z79.899 Other long term (current) drug therapy; Z87.440 Personal history of urinary (tract) infections; Z87.442 Personal history of urinary calculi
CPT/HCPCS: 80048; 81001; 85025; 87077; 87086; 87088; 87186; 93005; 99285; A4216

== ENCOUNTER 2023-06-08 21:17 | Emergency (ER) | payer MEDICARE, OTHER, MEDICAID, SELFPAY ==
[2023-06-08 21:25] VITALS: BP 139/81; PULSE 117; RESP 20; TEMP 37.2; O2SAT 97
--- NOTE | 2023-06-08 21:55 | ED.VIS.FEGU ---
HPI HPI - Female History of Present Illness Chief Complaint: Henry C/O Informant: patient Narrative Narrative: Patient has chronic indwelling suprapubic catheter, she states at some point today at the [facility] again became clogged due to lots of sediment, and she is having more discomfort in the suprapubic area than usual with this. She states it has been a problem for months. She has had a discharge from around the catheter at times, for a while. She denies any fevers or chills today. Nausea or vomiting. Low back pain different than usual. And denies any other new symptoms. 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 Kidney calculus Morbid obesity Nephrostomy complication Nephrostomy tube displaced VITA (obstructive sleep apnea) Pressure ulcer of coccygeal region, stage 3 Pyonephrosis Recurrent UTI Renal calculus, bilateral Severe sepsis Suprapubic catheter Ulcer of abdomen wall with fat layer exposed Ulcer of left groin with fat layer exposed UTI (urinary tract infection) due to urinary indwelling catheter V tach Home Medications venlafaxine 150 mg capsule,extended release 24 hr 150 mg PO DAILY depression 07/02/19 [History Last Taken 05/13/22] omeprazole 20 mg capsule,delayed release 20 mg PO DAILY heartburn 04/16/21 [History Last Taken 05/13/22] metoprolol tartrate 25 mg tablet 25 mg PO BID bp 07/02/21 [History Last Taken 05/13/22] ferrous sulfate 325 mg (65 mg iron) tablet 325 mg PO QODAY IRON 09/07/21 [History Last Taken 05/13/22] multivitamin with minerals (Multiple Vitamin-Minerals tablet) 1 tab PO DAILY SUPPLEMENT 09/07/21 [History Last Taken 04/05/22] bisacodyl 10 mg rectal suppository 10 mg GA DAILY PRN Constipation 11/08/21 [History Last Taken Unknown] fluticasone propionate 50 mcg/actuation nasal spray,suspension 1 spray intranasal DAILY allergies 12/27/21 [History Last Taken 04/05/22] polyethylene glycol 3350 17 gram oral powder packet (Miralax) 17 g PO DAILY PRN Constipation 11/08/21 [History Last Taken Unknown] acetaminophen 500 mg tablet 1,000 mg PO BID pain 04/05/22 [History Last Taken 05/13/22] diphenhydramine HCl 25 mg capsule 25 mg PO Q12H PRN PRN Itching 04/05/22 [History Last Taken 03/14/22] hydroxyzine HCl 25 mg tablet 25 mg PO Q6H PRN PRN Itching 04/05/22 [History Last Taken 04/04/22] loperamide 2 mg capsule (Imodium A-D) 2 mg PO Q6H PRN diarhea 04/05/22 [History Last Taken 05/13/22] methadone 5 mg tablet 2.5 mg PO DAILY pain 04/05/22 [History Last Taken 05/13/22] methadone 5 mg tablet 5 mg PO QHS pain 04/05/22 [History Last Taken 05/12/22] oxybutynin chloride 10 mg tablet,extended release 24 hr 10 mg PO DAILY bladder spasm 04/05/22 [History Last Taken 05/13/22] pregabalin 50 mg capsule 50 mg PO DAILY pain 04/05/22 [History Last Taken 04/05/22] levofloxacin 750 mg tablet 750 mg PO Q48H #20 tabs 04/08/22 [Rx Last Taken Unknown] nystatin 100,000 unit/gram topical powder (Nyamyc) 1 applic topical BID #0 grams 04/08/22 [Rx Last Taken 05/13/22] Lactobacillus rhamnosus GG 1 cap PO/SL BID [facility] 05/13/22 [History Last Taken 05/13/22] aluminum-mag hydroxide-simethicone 200 mg-200 mg-20 mg/5 mL oral susp 30 ml PO Q6H INDIGESTION 05/13/22 [History Last Taken 05/13/22] ondansetron 4 mg disintegrating tablet 4 mg PO Q6H NAUSEA AND VOMITING 05/13/22 [History Last Taken 05/13/22] cefdinir 300 mg capsule 300 mg PO DAILY 08/18/22 [History Last Taken Unknown] venlafaxine 100 mg tablet 100 mg PO DAILY 08/18/22 [History Last Taken Unknown] nitrofurantoin monohydrate/macrocrystals 100 mg capsule 100 mg PO Q12 #14 CAPSULES 06/08/23 [Rx Last Taken Unknown] Allergy/AdvReac Type Severity Reaction Status Date / Time adhesive tape Allergy blisters Verified 06/08/23 21:28 Influenza Virus Vaccines Allergy shortness Verified 06/08/23 21:28 of breath/severe wheezing iron Allergy from IV Verified 06/08/23 21:28 form chest pressure and heart palpitations Seasonal Allergies: Uncoded Allergy NEEDS Verified 06/08/23 21:28 FOLLOW-UP Sulfa (Sulfonamide Allergy Shortness Verified 06/08/23 21:28 Antibiotics) of breath meloxicam [From Mobic] AdvReac gi upset Verified 06/08/23 21:28 Family History Mother Diabetes Heart disease Father Heart disease CHF (congestive heart failure) Hx of CABG Surgical History H/O nephrostomy H/O: hysterectomy History of cholecystectomy History of tonsillectomy Hx of appendectomy Social History household members: none housing: [facility] Smoking Status: Never smoker alcohol intake: never substance use type: does not use ROS ROS ED Constitutional Constitutional ED: Denies chills or fever(s) Cardiovascular Cardiovascular: Denies chest pain Respiratory/Chest Respiratory/Chest: Denies dyspnea Gastrointestinal Gastrointestinal: Reports abdominal pain Genitourinary Genitourinary ED: Reports as per HPI Neurologic Neurologic: Denies headache(s) or paresthesias EXAM Physical Exam Const Vital Signs: 06/08/23 21:25 06/08/23 22:43 Temperature 99 F 99 F Temperature Source Temporal Temporal Pulse Rate 117 H 110 H Respiratory Rate 20 H 20 H Blood Pressure 139/81 H 139/60 H Blood Pressure Mean 100 86 Pulse Ox 97 98 Oxygen Delivery Method Room Air Nasal Cannula Oxygen Flow Rate (L/min) 3 Positive well nourished, well developed and obese General Appearance ED: well developed and NAD Nutritional Appearance: obese HEENT Reports moist mucous membranes Eyes PERRL and EOMs intact bilaterally Resp normal respiratory effort and clear to auscultation bilaterally Cardio regular rate and regular rhythm Rate: Negative for tachycardic GI soft to palpation and non-distended GI Narrative: Large nontender ventral hernia. Suprapubic tenderness mild no guarding or rebound. Foul-smelling discharge from around suprapubic catheter. The catheter is full of urine/sediment. Back/Spine no CVA tenderness Skin no rashes or lesions noted and no wounds MDM MDM MDM Narrative Medical decision making narrative: As above, there is urine and sediment in the catheter. It does not appear to be obstructed. I had nursing irrigated, and it irrigates without any difficulty and is not obstructed. This is good because we do not have anything in silicone larger than the 16 F, which would result in a significant increase in obstruction for her given how much sediment she has. Therefore I suspect her symptoms are due to infection. Urinalysis is consistent with this. It was sent for culture and started on Macrobid, she is not septic I do not think she needs other testing right now will be discharged back. Lab Data Attestation: I reviewed the patient's lab results. Labs: Laboratory Results - last 24 hr 06/08/23 22:35 Urine Color Yellow Urine Clarity Turbid Urine pH 8.0 Ur Specific [place] 1.015 Urine Protein 500 H Urine Glucose (UA) Normal Urine Ketones 5 H Urine Occult Blood 250 H Urine Nitrite Positive H Urine Bilirubin Negative Urine Urobilinogen Normal Ur Leukocyte Esterase 500 H Urine RBC 0 SEEN Urine WBC >100 SEEN Ur Squamous Epith Cells 0 SEEN Urine Bacteria 0 SEEN Urine Mucus 0 SEEN Discharge Plan Triage Chief Complaint: Henry C/O ED Provider: Ray Page Dx/Rx/DC Orders Clinical Impression: Acute cystitis without hematuria Instructions: ED Cystitis Female Adult Prescriptions: New nitrofurantoin monohyd/m-cryst [nitrofurantoin monohyd/m-cryst] 100 mg capsule 100 mg PO Q12 Qty: 14 0RF No Action venlafaxine 150 MG capsule 150 mg PO DAILY Patient Comments: TAKE ONE CAPSULE BY MOUTH TWICE DAILY omeprazole 20 mg Capsule,Delayed Release(Dr/Ec) 20 mg PO DAILY metoprolol tartrate 25 mg Tablet 25 mg PO BID ferrous sulfate 325 mg (65 mg iron) Tablet 325 mg PO QODAY Multiple Vitamin-Minerals Tablet 1 tab PO DAILY polyethylene glycol 3350 [Miralax] 17 gram Powder In Packet 17 g PO DAILY PRN (Reason: Constipation) bisacodyl 10 mg Suppository 10 mg GA DAILY PRN (Reason: Constipation) fluticasone propionate 50 mcg/actuation [place],Suspension 1 spray INTRANASAL DAILY acetaminophen 500 MG tablet 1,000 mg PO BID methadone 5 mg tablet 2.5 mg PO DAILY oxybutynin chloride 10 mg tablet extended release 24hr 10 mg PO DAILY hydroxyzine HCl 25 mg tablet 25 mg PO Q6H PRN PRN (Reason: Itching) methadone 5 mg tablet 5 mg PO QHS pregabalin 50 mg capsule 50 mg PO DAILY loperamide [Imodium A-D] 2 mg Capsule 2 mg PO Q6H PRN (Reason: diarhea) diphenhydramine HCl 25 mg Capsule 25 mg PO Q12H PRN PRN (Reason: Itching) levofloxacin 750 mg tablet 750 mg PO Q48H Qty: 20 0RF nystatin [Nyamyc] 100,000 unit/gram Powder 1 applic topical BID Qty: 0 0RF Protocol: *Topical Application Instructions APPLICATION INSTRUCTIONS: to abd folds and groin alum-mag hydroxide-simeth 200-200-20 mg/5 mL Suspension 30 ml PO Q6H ondansetron 4 mg Tablet,Disintegrating 4 mg PO Q6H Lactobacillus rhamnosus GG 1 cap PO/SL BID cefdinir 300 mg Capsule 300 mg PO DAILY venlafaxine 100 mg tablet 100 mg PO DAILY Primary Care Provider: Jacky Correa Referrals: Jacky Correa MD [Primary Care Provider] - 3-5 Days (For reevaluation and culture result review) Disposition Disposition: [facility] Facility
[2023-06-08 22:40] LABS: Bacteria 0 SEEN /hpf (None Seen); Mucous, Urine 0 SEEN /hpf (<or=2+); Red Blood Cells-Urine 0 SEEN /hpf (0-5); Squamous Epithelial Cells - UA 0 SEEN /hpf (5-10)
--- NOTE | 2023-06-08 22:41 | ED.RN ---
flushed suprapubic cath with no resistance or complications.
[2023-06-08 22:43] VITALS: BP 139/60; PULSE 110; RESP 20; TEMP 37.2; O2SAT 98
[2023-06-08 22:58] LABS: Color, Urine Yellow (Yellow); Glucose, Dipstick Normal (Normal); Ketone-Dipstick 5 mg/dl (Negative); Leukocyte Esterase-Dipstick 500 /ul (Negative); Nitrite-Dipstick Positive (Negative); Occult Blood-Urine 250 /ul (Negative); Protein-Dipstick 500 mg/dl (Negative); Specific Gravity, Urine 1.015 (1.002-1.030); Urine Bilirubin Dipstick Negative (Negative); Urine Clarity Turbid (Clear); Urine Urobilinogen Normal (Normal)
[2023-06-08 23:08] LABS: White Blood Cells >100 SEEN /hpf (0-5)
[2023-06-09] MEDS: Nitrofurantoin Macrocrystals 100 MG Capsule PO
--- NOTE | 2023-06-09 00:22 | ED.RN ---
0022:Report called to Howie MUÑOZ at the [place] ETA [id number].
[2023-06-09 00:53] VITALS: BP 123/102; PULSE 73; RESP 18; O2SAT 100
== END 2023-06-09 03:31 | disposition skilled nursing facility (03) ==
PROVIDERS: Emergency Provider Emergency Medicine; PCP Family Medicine; Visit Provider Emergency Medicine
DX: N30.00 Acute cystitis without hematuria (principal); T83.89XA Other specified complication of genitourinary prosthetic devices, implants and grafts, initial encounter; I50.9 Heart failure, unspecified; N18.9 Chronic kidney disease, unspecified; G47.33 Obstructive sleep apnea (adult) (pediatric); E66.9 Obesity, unspecified; X58.XXXA Exposure to other specified factors, initial encounter
CPT/HCPCS: 81001; 87086; 87186; 99284